=== PATIENT | female | born 1955 | race Hispanic/Latino ===

== ENCOUNTER 2017-12-15 16:56 | Emergency (ER) | payer OTHER, SELFPAY ==
--- OUTSIDE RECORDS SUMMARY | 2017-12-15 16:57 | XMS REPORT ---
:1955 Author Organization [employer] Care Team Providers Name Role Phone Tonio Miller Provider Role Unavailable Allergies No Known Allergies Problems Problem Type Condition Code Onset Dates Condition Status Assessment Stress disorder, acute F43.0 Active Problem Insomnia G47.00 Active Assessment Allergic reaction, initial T78.40XA Active encounter Problem Fatty liver K76.0 Active Problem Postsurgical menopause N95.8 Active Problem GERD (gastroesophageal reflux K21.9 Active disease) Problem Hypertension I10 Active Problem Dizziness R42 Active Problem Simple renal cyst N28.1 Active Problem Vitamin B12 deficiency anemia D51.9 Active Problem Hyperlipidemia, mixed E78.2 Active Problem Hematuria, unspecified R31.9 Active Problem Stress disorder, acute F43.0 Active Problem History of transient ischemic Z86.73 Active attack Problem History of cerebrovascular Z86.73 Active accident Problem Adrenal hypofunction E27.49 Active Problem Degeneration, intervertebral disc, 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 97177961601 25 MG Orally Active 1 capsule HCl Once a day Ultram [facility] 33495281218 50 MG Orally Active 1 tablet every 6 hrs as needed Lipitor ND 05909905045 40 MG Orally Active 1 tablet Once a day Nystatin [facility] [address]-68 439484 U/ML Active not Mouth/Throat defined Nasonex ND 24720631479 50 MCG/ACT Active 2 sprays Nasally Once a in each day nostril Nexium ND 82809928725 40 MG Active TAKE ONE CAPSULE BY MOUTH EVERY DAY Venlafaxine HCl ND 55485427031 75 MG Active TAKE ONE ER CAPSULE BY MOUTH EVERY DAY Loratadine [facility] 12006196187 10 MG Orally Active 1 tablet Once a day Trelegy Ellipta [facility] 35115466779 100-62.5-25 Active 1 puff MCG/INH Inhalation Once a day Lorazepam [facility] 60751619359 0.5 MG Orally Active 1 tablet every 6 hrs as needed Vitamin B12 [facility] 84963299558 1000 MCG Orally Active 1 tablet Once a day Clopidogrel [facility] 00260287801 75 MG Orally Active 1 tablet Bisulfate Once a day Atenolol [facility] 00005331088 100 MG Active TAKE 1 TABLET BY MOUTH EVERY DAY Aspirin [facility] 11668046572 81 MG Active TAKE 1 TABLET BY MOUTH EVERY DAY ProAir HFA [facility] 80463013067 108 (90 Base) Active 2 puffs MCG/ACT as needed Inhalation every [address] [facility] 12902069655 100 MG Orally Active 1 capsule Three times a day Furosemide [facility] 24237032455 20 MG Orally Active 1 tablet Once a day Synthroid [facility] 59887763544 50 MCG Orally Active 1 tablet Once a day on an empty stomach in the morning Promethazine HCl [facility] 28657285316 25 MG/ML Active 1 ml as Injection every needed 6 hrs Results No Known Results Summary Purpose e[employer]Works Submission
--- NOTE | 2017-12-15 17:49 | RAD REPORT ---
EXAM DESCRIPTION: RAD - Chest Single View - 12/15/2017 5:42 pm CLINICAL HISTORY: CHEST PAIN Chest pain. COMPARISON: Chest Single View dated 06/17/2017; Chest Pa And Lat (2 Views) dated 05/26/2017; Chest Si ngle View dated 04/14/2017; Chest Pa And Lat (2 Views) dated 12/25/2016 FINDINGS: Portable technique limits examination quality. The lungs are grossly clear. The heart is mildly enlarged in size with postsurgical changes noted inv olving the mediastinum. No displaced fractures.Postsurgical left chest wall findings are stable. IMPRESSION: No acute intrathoracic process suspected.
--- NOTE | 2017-12-15 18:27 | RAD REPORT ---
EXAM DESCRIPTION: CT - Head Brain Wo Cont - 12/15/2017 6:14 pm CLINICAL HISTORY: WEAKNESS Drowsiness COMPARISON: Head Brain Wo Cont dated 09/09/2016; Head Brain Wo Cont dated 06/12/2016Head Brain Wo Con t dated 09/09/2016; Head Brain Wo Cont dated 06/12/2016; HEAD BRAIN W O CONTRAST dated 08/17/2015 TECHNIQUE: All CT scans are performed using dose optimization technique as appropriate and may inclu de automated exposure control or mA/KV adjustment according to patient size. FINDINGS: No intracranial hemorrhage, hydrocephalus or extra-axial fluid collection.No areas of brai n edema or evidence of midline shift. The paranasal sinuses and mastoids are clear. The calvarium is intact. IMPRESSION: No acute intracranial abnormality.
[2017-12-15] MEDS ORDERED: ONDANSETRON 4 MG (ODT) TAB ONE (18:54)
[2017-12-15] MEDS ORDERED: FENTANYL CITR 100 MCG/2 ML ONE (19:49)
[2017-12-15] MEDS ORDERED: ONDANSETRON 4 MG/2 ML VIAL ONE (19:49)
[2017-12-15 19:58] LABS: Absolute Lymphocytes (CBC) 3.1 K/uL (0.7-4.9); Absolute Monocytes 0.3 K/uL (0.1-1.3); Absolute Neutrophil 3.3 K/uL (1.8-8.0); Basophils % 0.4 % (0-1.3); Eosinophils % 0.9 % (0-4.4); Lymphocytes % 45.9 % (15.3-44.8); MCH 32.1 pg (27.0-35.0); MCV 95.1 fL (80-100); Monocytes % 4.7 % (3.3-12.3); RBC Red Blood Cell Count 4.52 M/uL (3.86-4.86)
[2017-12-15 20:05] LABS: Protime INR 0.98
[2017-12-15 20:24] LABS: Albumin 3.8 g/dL (3.4-5.0); Bilirubin Direct 0.1 mg/dL (0-0.2); Bilirubin Total 0.6 mg/dL (0.2-1.0); Magnesium 2.3 mg/dL (1.8-2.4); Potassium 4.1 mmol/L (3.5-5.1); Protein, Total 7.8 g/dL (6.4-8.2)
--- NOTE | 2017-12-15 20:32 | EDPHYS ---
Physician Documentation [facility] Name: Toshia Barone Age: 62 yrs Sex: Female : 1955 Arrival Date: 12/15/2017 Time: 16:58 Bed 16 Private MD: Tonio Miller ED Physician Gulshan Grissom HPI: 12/15 20:29 This 62 yrs old Female presents to ER via Ambulatory with complaints of Chest gs Pain > 30 y/o. 20:29 The patient or guardian reports chest pain that is located primarily in the anterior gs chest wall. Onset: 1 week(s) ago. The pain does not radiate. Associated signs and symptoms: Pertinent negatives: shortness of breath. The chest pain is described as dull, a heaviness. Duration: The patient or guardian reports multiple episodes, that wax and wane, with no pattern, the episodes last approximately 1 minute(s), or less. Severity of pain: At its worst the pain was moderate in the emergency department the pain has resolved. The patient has experienced similar episodes in the past, several times. Historical: - Allergies: 17:04 methylphenidate HCl; aj 17:04 PENICILLINS; aj 17:04 Reglan; aj 17:04 Ritalin; aj - Home Meds: 17:04 aspirin 81 mg Oral TbEC 1 tab once daily [Active]; atenolol 100 mg Oral tab 1 tab once aj daily [Active]; atorvastatin 40 mg Oral tab 1 tab nightly [Active]; Eliquis 2.5 mg Oral tab 1 tab 2 times per day [Active]; gabapentin 300 mg Oral cap 1 cap 3 times per day [Active]; isosorbide mononitrate 30 mg Oral Tb24 1 tab once daily [Active]; levothyroxine 50 mcg tab 1 tab once daily [Active]; Nexium 40 mg Oral cpDR 1 cap once daily [Active]; ProAir HFA 90 mcg/actuation inhalation HFAA 1 puff every 4 hours [Active]; spironolactone 25 mg Oral tab 1 tab 2 times per day [Active]; promethazine 12.5 mg Oral tab 1 tab as needed [Active]; Stool Softener 100 mg Oral cap 1 cap once daily [Active]; tramadol 50 mg Oral tab 2 tabs every 6 hours [Active]; Vitamin D [place] 33264 unit Q WEEK [Active]; - PMHx: 17:04 B12 deficiency; CHF; COPD; CVA; DVT; fatty liver; GERD; Hyperlipidemia; Hypertension; aj Hypothyroidism; Kidney stones; Myocardial infarction; Pancreatitis; TIA; - PSHx: 17:04 Hysterectomy; Lobectomy; Heart stents; Cholecystectomy; ; right leg vericose aj vein removal; - Immunization history:: Adult Immunizations up to date. - Social history:: Smoking status: Patient/guardian denies using tobacco. - Ebola Screening: : Patient negative for fever greater than or equal to 101.5 degrees Fahrenheit, and additional compatible Ebola Virus Disease symptoms Patient denies exposure to infectious person Patient denies travel to an Ebola-affected area in the 21 days before illness onset No symptoms or risks identified at this time. ROS: 20:29 Neuro: Positive for weakness, upper extremity says intermittent no pattern has history gs of stroke. 20:29 All other systems are negative. Exam: 20:29 Head/Face: Normocephalic, atraumatic. Eyes: Pupils equal round and reactive to light, gs extra-ocular motions intact. Lids and lashes normal. Conjunctiva and sclera are non-icteric and not injected. Cornea within normal limits. Periorbital areas with no swelling, redness, or edema. ENT: Nares patent. No nasal discharge, no septal abnormalities noted. Tympanic membranes are normal and external auditory canals are clear. Oropharynx with no redness, swelling, or masses, exudates, or evidence of obstruction, uvula midline. Mucous membranes moist. Neck: Trachea midline, no thyromegaly or masses palpated, and no cervical lymphadenopathy. Supple, full range of motion without nuchal rigidity, or vertebral point tenderness. No Meningismus. Chest/axilla: Normal chest wall appearance and motion. Nontender with no deformity. No lesions are appreciated. Cardiovascular: Regular rate and rhythm with a normal S1 and S2. No gallops, murmurs, or rubs. Normal PMI, no JVD. No pulse deficits. Respiratory: Lungs have equal breath sounds bilaterally, clear to auscultation and percussion. No rales, rhonchi or wheezes noted. No increased work of breathing, no retractions or nasal flaring. Abdomen/GI: Soft, non-tender, with normal bowel sounds. No distension or tympany. No guarding or rebound. No evidence of tenderness throughout. Back: No spinal tenderness. No costovertebral tenderness. Full range of motion. Skin: Warm, dry with normal turgor. Normal color with no rashes, no lesions, and no evidence of cellulitis. MS/ Extremity: Pulses equal, no cyanosis. Neurovascular intact. Full, normal range of motion. Neuro: Awake and alert, GCS 15, oriented to person, place, time, and situation. Cranial nerves II-XII grossly intact. Motor strength 5/5 in all extremities. Sensory grossly intact. Cerebellar exam normal. Normal gait. 20:29 Constitutional: The patient appears alert, awake. 20:29 ECG was reviewed by the Attending Physician. Vital Signs: 17:04 BP 178 / 80; Pulse 73; Resp 18; Temp 97.6; Pulse Ox 98% on R/A; Weight 72.57 kg; Height aj 5 ft. 5 in. (165.10 cm); 18:30 BP 139 / 83; Pulse 63; Resp 18; Pulse Ox 98% on R/A; ph 20:45 BP 117 / 84; Pulse 68; Resp 16; Pulse Ox 99% on R/A; Pain 0/10; ao 17:04 Body Mass Index 26.63 (72.57 kg, 165.10 cm) aj NIH Stroke Scale Scores: 20:29 NIHSS Score: 0 gs MDM: 17:48 Patient medically screened. 20:29 Differential diagnosis: acute myocardial infarction, coronary artery disease chest wall gs pain. Differential diagnosis: cva tia. Data reviewed: vital signs, nurses notes. 20:32 Counseling: I had a detailed discussion with the patient and/or guardian regarding: the historical points, exam findings, and any diagnostic results supporting the discharge/admit diagnosis. Response to treatment: the patient's symptoms have resolved after treatment, the patient's pain is gone. 12/15 17:24 Order name: Basic Metabolic Panel; Complete Time: 20:28 12/15 17:24 Order name: CBC with Diff; Complete Time: 20: 12/15 17:24 Order name: LFT's; Complete Time: 20:28 12/15 17:24 Order name: Magnesium; Complete Time: 20: 12/15 17:24 Order name: NT PRO-BNP; Complete Time: 20: 12/15 17:24 Order name: PT-INR; Complete Time: 20:13 12/15 17:24 Order name: Troponin (emerg Dept Use Only); Complete Time: 20:28 12/15 17:24 Order name: XRAY Chest (1 view); Complete Time: 18:33 gs 12/15 17:24 Order name: EKG; Complete Time: 17:24 12/15 17:24 Order name: Cardiac monitoring; Complete Time: 18:57 12/15 17:41 Order name: CT Head Brain wo Cont; Complete Time: 18:33 12/15 17:24 Order name: EKG - Nurse/Tech; Complete Time: 18:57 12/15 17:24 Order name: IV Saline Lock; Complete Time: 18:58 12/15 17:24 Order name: Labs collected and sent; Complete Time: 18:59 12/15 17:24 Order name: O2 Per Protocol; Complete Time: 18:59 12/15 17:24 Order name: O2 Sat Monitoring; Complete Time: 20:39 gs EC:29 Rate is 62 beats/min. Rhythm is regular. MT interval is normal. QRS interval is normal. gs T waves are Flattened. No ST changes noted. Clinical impression: Abnormal EKG without significant change. Interpreted by me. Administered Medications: 18:57 Drug: Zofran 4 mg Route: PO; ph 20:49 Follow up: Response: No adverse reaction ao 19:53 Drug: Zofran 4 mg Route: IVP; Site: right antecubital; ao 20:49 Follow up: Response: No adverse reaction ao 19:53 Drug: fentaNYL (PF) 25 mcg Route: IVP; Site: right antecubital; ao 20:48 Follow up: Response: No adverse reaction ao Disposition: 12/15/17 20:32 Discharged to Home. Impression: Chest pain, unspecified. - Condition is Stable. - Discharge Instructions: Nonspecific Chest Pain. - Medication Reconciliation Form, Thank You Letter, Antibiotic Education, Prescription Opioid Use form. - Follow up: Private Physician; When: 2 - 3 days; Reason: Re-evaluation by your physician. NIH Stroke Scale - NIH Stroke Score Date: 12/15/2017 Time: 20:29 Total Score = 0 1a. Level of Consciousness (LOC) - 0(Alert) 1b. Level of Consciousness (LOC) (Year \T\ Age) - 0(Both) 1c. LOC Commands (Open \T\ Closes Eyes/Receiving Worker) - 0(Both) 2. Best Gaze (Lateral Gaze Paresis) - 0(Normal) 3. Visual Field Loss - 0(No visual loss) 4. Facial Palsy - 0(Normal) 5a. Left Arm: Motor (10-second hold) - 0(No drift) 5b. Right Arm: Motor (10-second hold) - 0(No drift) 6a. Left Leg: Motor (5-second hold - always test supine) - 0(No drift) 6b. Right Leg: Motor (5-second hold - always test supine) - 0(No drift) 7. Limb Ataxia (finger/nose \T\ heel/glass - test with eyes open) - 0(Absent) 8. Sensory Loss (pinprick arms/legs/face) - 0(Normal) 9. Best Language: Aphasia (description/naming/reading) - 0(No aphasia) 10. Dysarthria (speech clarity - read or repeat words) - 0(Normal) 11. Extinction and Inattention (visual/tactile/auditory/spatial/personal) - 0(No abnormality) Initials: Signatures: Dispatcher [employer] EDAllyson Romo RN RN aj Hall, Patricia RN Cheng Abrams ph, RN RN ao Starr, Gregory, MD MD Corrections: (The following items were deleted from the chart) 20:40 17:24 Urine Dipstick-Ancillary ordered. ao 20:54 20:32 12/15/2017 20:32 Discharged to Home. Impression: Chest pain, unspecified. ao Condition is Stable. Forms are Medication Reconciliation Form, Thank You Letter, Antibiotic Education, Prescription Opioid Use. Follow up: Private Physician; When: 2 - 3 days; Reason: Re-evaluation by your physician.
--- NOTE | 2017-12-15 20:32 | ER ---
Nurse's Notes [facility] Name: Toshia Barnoe Age: 62 yrs Sex: Female : 1955 Arrival Date: 12/15/2017 Time: 16:58 Bed 16 Private MD: Tonio Miller Diagnosis: Chest pain, unspecified Presentation: 12/15 17:02 Presenting complaint: Patient states: Sternal chest pain with heaviness to left arm. aj Reports nausea. Transition of care: patient was not received from another setting of care. Onset of symptoms was December 12, 2017. Risk Assessment: Do you want to hurt yourself or someone else? Patient reports no desire to harm self or others. Initial Sepsis Screen: Does the patient meet any 2 criteria? No. Patient's initial sepsis screen is negative. Does the patient have a suspected source of infection? No. Patient's initial sepsis screen is negative. Care prior to arrival: None. 17:02 Method Of Arrival: Ambulatory aj 17:02 Acuity: SHARON 3 aj Triage Assessment: 17:04 General: Appears in no apparent distress. comfortable, Behavior is calm, cooperative, aj appropriate for age. Pain: Complains of pain in chest. Neuro: Level of Consciousness is awake, alert, obeys commands, Oriented to person, place, time, situation, Appropriate for age. Cardiovascular: Reports chest pain. Cardiovascular: Reports Capillary refill < 3 seconds in bilateral fingers Patient's skin is warm and dry. Respiratory: Airway is patent Respiratory effort is even, unlabored, Respiratory pattern is regular, symmetrical. GI: Reports nausea. Derm: Skin is intact, is healthy with good turgor, Skin is pink, warm \T\ dry. normal. Historical: - Allergies: 17:04 methylphenidate HCl; aj 17:04 PENICILLINS; aj 17:04 Reglan; aj 17:04 Ritalin; aj - Home Meds: 17:04 aspirin 81 mg Oral TbEC 1 tab once daily [Active]; atenolol 100 mg Oral tab 1 tab once aj daily [Active]; atorvastatin 40 mg Oral tab 1 tab nightly [Active]; Eliquis 2.5 mg Oral tab 1 tab 2 times per day [Active]; gabapentin 300 mg Oral cap 1 cap 3 times per day [Active]; isosorbide mononitrate 30 mg Oral Tb24 1 tab once daily [Active]; levothyroxine 50 mcg tab 1 tab once daily [Active]; Nexium 40 mg Oral cpDR 1 cap once daily [Active]; ProAir HFA 90 mcg/actuation inhalation HFAA 1 puff every 4 hours [Active]; spironolactone 25 mg Oral tab 1 tab 2 times per day [Active]; promethazine 12.5 mg Oral tab 1 tab as needed [Active]; Stool Softener 100 mg Oral cap 1 cap once daily [Active]; tramadol 50 mg Oral tab 2 tabs every 6 hours [Active]; Vitamin D Oral 20629 unit Q WEEK [Active]; - PMHx: 17:04 B12 deficiency; CHF; COPD; CVA; DVT; fatty liver; GERD; Hyperlipidemia; Hypertension; aj Hypothyroidism; Kidney stones; Myocardial infarction; Pancreatitis; TIA; - PSHx: 17:04 Hysterectomy; Lobectomy; Heart stents; Cholecystectomy; ; right leg vericose aj vein removal; - Immunization history:: Adult Immunizations up to date. - Social history:: Smoking status: Patient/guardian denies using tobacco. - Ebola Screening: : Patient negative for fever greater than or equal to 101.5 degrees Fahrenheit, and additional compatible Ebola Virus Disease symptoms Patient denies exposure to infectious person Patient denies travel to an Ebola-affected area in the 21 days before illness onset No symptoms or risks identified at this time. Screenin:17 Abuse screen: Denies threats or abuse. Denies injuries from another. Nutritional ph screening: No deficits noted. Tuberculosis screening: No symptoms or risk factors identified. Fall Risk None identified. Assessment: 17:15 General: Appears in no apparent distress. comfortable, well groomed, Behavior is calm, ph cooperative, appropriate for age. Pain: Complains of pain in chest Pain radiates to left arm Quality of pain is described as heavy, pressure, Pain began 4 days ago. Neuro: Level of Consciousness is awake, alert, obeys commands, Oriented to person, place, time, situation, Marketing Production Coordinator are equal bilaterally Speech is normal, Facial symmetry appears normal, Facial symmetry: tongue is midline, Reports weakness in left arm and left leg since 4 days ago Denies blurred vision dizziness, difficulty swallowing, paresthesias headache. Cardiovascular: Reports chest pain, diaphoresis, fatigue, nausea, shortness of breath, Capillary refill < 3 seconds Patient's skin is warm and dry. Chest pain quality is heaviness, pressure, is located in substernal area radiates to left arm(s). Respiratory: Airway is patent. GI: Reports nausea, Patient currently denies abdominal pain, diarrhea, vomiting. Derm: Skin is intact, is healthy with good turgor, Skin is normal. Musculoskeletal: Circulation, motion, and sensation intact. Range of motion: intact in all extremities. 18:00 Reassessment: Unable to gain IV access, lab notified to draw blood. ph 19:00 Reassessment: Patient appears in no apparent distress at this time. Patient and/or ph family updated on plan of care and expected duration. Pain level reassessed. Patient is alert, oriented x 3, equal unlabored respirations, skin warm/dry/pink. Lab unable to obtain blood, RT at bedside for arterial draw assisted by RN, small amount of blood obtained and sent to lab. 19:42 General: Appears in no apparent distress. comfortable, well groomed. Pain: Complains of ao pain in chest Pain radiates to left arm Quality of pain is described as heavy, pressure. Neuro: Level of Consciousness is awake, alert, obeys commands, Oriented to person, place, time, situation, Marketing Production Coordinator are equal bilaterally Speech is normal, Facial symmetry appears normal, Facial symmetry: tongue is midline. Cardiovascular: Reports chest pain, diaphoresis, fatigue, nausea, shortness of breath, Capillary refill < 3 seconds Patient's skin is warm and dry. Respiratory: Airway is patent. GI: Abdomen is obese. : No signs and/or symptoms were reported regarding the genitourinary system. EENT: No signs and/or symptoms were reported regarding the EENT system. Derm: Skin is intact, is healthy with good turgor, Skin is normal. 20:50 Reassessment: Patient appears in no apparent distress at this time. Patient and/or ao family updated on plan of care and expected duration. Pain level reassessed. Patient is alert, oriented x 3, equal unlabored respirations, skin warm/dry/pink. Discharge instructions given by me and Dr Grissom. Patient agree with the POC and to follow up with PCP. Patient has no questions at this time. Vital Signs: 17:04 BP 178 / 80; Pulse 73; Resp 18; Temp 97.6; Pulse Ox 98% on R/A; Weight 72.57 kg; Height aj 5 ft. 5 in. (165.10 cm); 18:30 BP 139 / 83; Pulse 63; Resp 18; Pulse Ox 98% on R/A; ph 20:45 BP 117 / 84; Pulse 68; Resp 16; Pulse Ox 99% on R/A; Pain 0/10; ao 17:04 Body Mass Index 26.63 (72.57 kg, 165.10 cm) NIH Stroke Scale Scores: 20:29 NIHSS Score: 0 ED Course: 16:58 Patient arrived in ED. sb2 16:59 Tonio Miller, DO is Private Physician. sb2 17:02 Triage completed. aj 17:04 Arm band placed on right wrist. Patient placed in an exam room. aj 17:07 Viviana Sweeney, RN is Primary Nurse. ph 17:18 Gulshan Grissom MD is Attending Physician. gs 17:41 X-ray completed. Portable x-ray completed in exam room. Patient tolerated procedure kp1 well. 17:42 XRAY Chest (1 view) In Process Unspecified. EDMS 17:45 EKG done, by mechanical service technician. reviewed by Gulshan Grissom MD. sm3 18:[address] vm2 18:09 Missed attempt(s): 22 gauge in left in right antecubital area. mh5 18:10 Patient has correct armband on for positive identification. Placed in gown. Bed in low mh5 position. Call light in reach. Side rails up X2. Warm blanket given. forest aide on. Pulse ox on. NIBP on. 18:14 CT completed. Patient tolerated procedure well. Patient moved back from CT. nj 18:14 CT Head Brain wo Cont In Process Unspecified. EDMS 18:45 Missed attempt(s): 22 gauge in right wrist. antecubital area. Bleeding controlled, band ph aid applied, catheter tip intact. 19:17 Patient maintains SpO2 saturation greater than 95% on room air. ph 19:44 Inserted saline lock: 20 gauge in right antecubital area, using aseptic technique. ao ,using aseptic technique. Guided ultrasound Blood collected. 20:49 No provider procedures requiring assistance completed. IV discontinued, intact, ao bleeding controlled, No redness/swelling at site. Pressure dressing applied. Administered Medications: 18:57 Drug: Zofran 4 mg Route: PO; ph 20:49 Follow up: Response: No adverse reaction ao 19:53 Drug: Zofran 4 mg Route: IVP; Site: right antecubital; ao 20:49 Follow up: Response: No adverse reaction ao 19:53 Drug: fentaNYL (PF) 25 mcg Route: IVP; Site: right antecubital; ao 20:48 Follow up: Response: No adverse reaction ao Outcome: 20:32 Discharge ordered by MD. gs 20:50 Discharged to home ambulatory. ao 20:50 Condition: stable 20:50 Discharge instructions given to patient, Instructed on discharge instructions, follow up and referral plans. Demonstrated understanding of instructions, follow-up care, medications. 20:54 Patient left the ED. ao NIH Stroke Scale - NIH Stroke Score Date: 12/15/2017 Time: 20:29 Total Score = 0 1a. Level of Consciousness (LOC) - 0(Alert) 1b. Level of Consciousness (LOC) (Year \T\ Age) - 0(Both) 1c. LOC Commands (Open \T\ Closes Eyes/Shipmaster) - 0(Both) 2. Best Gaze (Lateral Gaze Paresis) - 0(Normal) 3. Visual Field Loss - 0(No visual loss) 4. Facial Palsy - 0(Normal) 5a. Left Arm: Motor (10-second hold) - 0(No drift) 5b. Right Arm: Motor (10-second hold) - 0(No drift) 6a. Left Leg: Motor (5-second hold - always test supine) - 0(No drift) 6b. Right Leg: Motor (5-second hold - always test supine) - 0(No drift) 7. Limb Ataxia (finger/nose \T\ heel/glass - test with eyes open) - 0(Absent) 8. Sensory Loss (pinprick arms/legs/face) - 0(Normal) 9. Best Language: Aphasia (description/naming/reading) - 0(No aphasia) 10. Dysarthria (speech clarity - read or repeat words) - 0(Normal) 11. Extinction and Inattention (visual/tactile/auditory/spatial/personal) - 0(No abnormality) Initials: Signatures: Dispatcher [employer] EDAllyson Romo RN RN aj Hall, Patricia, RN RN ph Ortiz, Alex, RN RN ao Jordan, Nathan nj Martinez, Maria mh5 Kelle Hastings vm2 Ya Ledbetter kp1 Gulshan Grissom MD MD Yulia Yanes sb2 Zena Beltrán 3 Corrections: (The following items were deleted from the chart) 19:18 18:45 Missed attempt(s): 22 gauge in left wrist. antecubital area. ph ph
--- NOTE | 2017-12-15 20:52 | EKG ---
Test Date: 2017-12-15 Test Time: 17:40:02 Photographic Equipment Assembler: LARRY MEASUREMENT RESULTS: Intervals: Rate: 62 WI: 146 QRSD: 76 QT: 416 QTc: 422 Carpenter: P: -1 WI: 146 QRS: 2 T: 48 INTERPRETIVE STATEMENTS: Normal sinus rhythm Normal ECG Compared to ECG 06/17/2017 13:53:18 Left ventricular hypertrophy no longer present T-wave abnormality no longer present Electronically Signed On 12-15-17 20:51:40 CDT by Ivan Hernandez
[2017-12-15 20:58] VITALS: TEMP 97.6
[2017-12-15 21:01] VITALS: BP 117/84; O2SAT 99
== END 2017-12-15 20:54 | disposition home or self-care (01) ==
LOC: ER 16:56
DX: R07.9 Chest pain, unspecified (principal); I10 Essential (primary) hypertension; E78.5 Hyperlipidemia, unspecified; J44.9 Chronic obstructive pulmonary disease, unspecified; I25.2 Old myocardial infarction; I50.9 Heart failure, unspecified; Z79.02 Long term (current) use of antithrombotics/antiplatelets; Z79.82 Long term (current) use of aspirin; Z88.0 Allergy status to penicillin; Z88.8 Allergy status to other drugs, medicaments and biological substances; Z95.818 Presence of other cardiac implants and grafts
CPT/HCPCS: 36415; 70450; 71045; 80048; 80076; 82962; 83735; 83880; 84484; 85025; 85610; 93005; 96374; 96375; 99285; J2405; J3010

== ENCOUNTER 2018-04-30 11:35 | Observation (INO) | payer OTHER ==
--- OUTSIDE RECORDS SUMMARY | 2018-04-30 11:37 | XMS REPORT ---
:1955 Author Organization e[employer] Care Team Providers Name Role Phone Tonio Miller Provider Role Unavailable Allergies No Known Allergies Problems Problem Type Condition Code Onset Dates Condition Status Problem Hypertension I10 Active Problem Hyperlipidemia, mixed E78.2 Active Problem History of transient ischemic attack Z86.73 Active Problem Varicose veins I86.8 Active Problem Postsurgical menopause N95.8 Active Problem History of cerebrovascular accident Z86.73 Active Problem Adrenal hypofunction E27.49 Active Problem Hypothyroidism, unspecified type E03.9 Active Problem Stress disorder, acute F43.0 Active Problem Kidney stone N20.0 Active Problem Stented coronary artery Z95.5 Active Problem Chronic obstructive pulmonary J44.9 Active disease, unspecified COPD type Problem Degenerative joint disease M19.90 Active Problem Degeneration, intervertebral disc, 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
--- OUTSIDE RECORDS SUMMARY | 2018-04-30 11:37 | XMS REPORT ---
:1955 Author Organization [employer] Care Team Providers Name Role Phone Tonio Miller Provider Role Unavailable Allergies No Known Allergies Problems Problem Type Condition Code Onset Dates Condition Status Assessment Stented coronary artery Z95.5 Active Assessment GERD (gastroesophageal reflux K21.9 Active disease) Assessment Hypertension I10 Active Assessment Atherosclerosis of coronary artery I25.10 Active of [place] heart Assessment Chronic obstructive pulmonary J44.9 Active disease, unspecified COPD type Assessment Hyperlipidemia, mixed E78.2 Active Assessment Depression with anxiety F41.8 Active Assessment Hypothyroidism, unspecified type E03.9 Active Problem Hypertension I10 Active Problem Hyperlipidemia, mixed [...] Atherosclerosis of coronary artery I25.10 Active of [place] heart Problem Simple renal cyst N28.1 Active Problem Vitamin B12 deficiency anemia D51.9 Active Problem Chronic pancreatitis K86.1 Active Problem Peripheral neuropathy G62.9 Active Problem Obstructive sleep apnea G47.33 Active Problem Depression with anxiety F41.8 Active Problem GERD (gastroesophageal reflux K21.9 Active disease) Problem Dizziness R42 Active Problem Insomnia G47.00 Active Problem Fatty liver K76.0 Active Medications Medication Code Code Instructions Start End Status Dosage System Date Date Ultram [facility] 69368157724 50 MG Orally Active 1 tablet every 6 hrs as needed Synthroid [facility] 61064732338 50 MCG Orally Active 1 tablet Once a day on an empty stomach in the morning Nasonex [facility] 32921678169 50 MCG/ACT Active 2 sprays Nasally Once a in each day nostril Nystatin [facility] [address]-68 445592 U/ML Inactive not Mouth/Throat defined Gabapentin [facility] 61996966503 100 MG Orally Inactive 1 capsule Three times a day Nortriptyline [facility] 10533290067 25 MG Orally Inactive 1 capsule HCl Once a day Lorazepam [facility] 30280467767 0.5 MG Orally Inactive 1 tablet every 6 hrs as needed Promethazine HCl [facility] 65257093792 25 MG/ML Active 1 ml as Injection every needed 6 hrs Aspirin [facility] 59410456661 81 MG Active TAKE 1 TABLET BY MOUTH EVERY DAY Venlafaxine HCl [facility] 11490684475 75 MG Active TAKE ONE ER CAPSULE BY MOUTH EVERY DAY Clopidogrel [facility] 79196430370 75 MG Orally Active 1 tablet Bisulfate Once a day Vitamin B12 [facility] 60443517273 1000 MCG Orally Active 1 tablet Once a day Furosemide [facility] 80502353562 20 MG Orally Active 1 tablet Once a day Atenolol [facility] 94450391455 100 MG PO Once Active TAKE 1 daily TABLET BY MOUTH EVERY DAY Trelegy Ellipta [facility] 11193013544 100-62.5-25 Active 1 puff MCG/INH Inhalation Once a day Nexium [facility] 59359122492 40 MG Active TAKE ONE CAPSULE BY MOUTH EVERY DAY Loratadine [facility] 13365890490 10 MG Orally Active 1 tablet Once a day Lipitor [facility] 09004939602 40 MG Orally Active 1 tablet Once a day ProAir HFA [facility] 42711300336 108 (90 Base) Active 2 puffs MCG/ACT as needed Inhalation every 6 hrs Results No Known Results Summary Purpose eClinicalWorks Submission
--- OUTSIDE RECORDS SUMMARY | 2018-04-30 11:37 | XMS REPORT ---
[...] Atherosclerosis of coronary artery I25.10 Active of [place] heart Problem Stented coronary artery Z95.5 Active Problem Kidney stone N20.0 Active Problem Varicose veins I86.8 Active Problem Degenerative joint disease M19.90 Active Problem Chronic pancreatitis K86.1 Active Problem Peripheral neuropathy G62.9 Active Problem Obstructive sleep apnea G47.33 Active Problem Depression with anxiety F41.8 Active Medications Medication Code Code Instructions Start End Status Dosage System Date Date Nortriptyline [facility] 88689946561 25 MG Orally Active 1 capsule HCl Once a day Ultram [facility] 53764084574 50 MG Orally Active 1 tablet every 6 hrs as needed Lipitor ND 65906517534 40 MG Orally Active 1 tablet Once a day Nystatin [facility] [address]-79 572691 U/ML Active not Mouth/Throat defined Nasonex ND 49857929192 50 MCG/ACT Active 2 sprays Nasally Once a in each day nostril Nexium ND 56141138342 40 MG Active TAKE ONE CAPSULE BY MOUTH EVERY DAY Venlafaxine HCl ND 05428822619 75 MG Active TAKE ONE ER CAPSULE BY MOUTH EVERY DAY Loratadine [facility] 75959242247 10 MG Orally Active 1 tablet Once a day Trelegy Ellipta [facility] 69732777522 100-62.5-25 Active 1 puff MCG/INH Inhalation Once a day Lorazepam [facility] 41018044254 0.5 MG Orally Active 1 tablet every 6 hrs as needed Vitamin B12 [facility] 51574521301 1000 MCG Orally Active 1 tablet Once a day Clopidogrel [facility] 14284025984 75 MG Orally Active 1 tablet Bisulfate Once a day Atenolol [facility] 80428088323 100 MG Active TAKE 1 TABLET BY MOUTH EVERY DAY Aspirin [facility] 78175218724 81 MG Active TAKE 1 TABLET BY MOUTH EVERY DAY ProAir HFA [facility] 08703963197 108 (90 Base) Active 2 puffs MCG/ACT as needed Inhalation every 6 hrs Gabapentin [facility] 82766444999 100 MG Orally Active 1 capsule Three times a day Furosemide [facility] 64863126570 20 MG Orally Active 1 tablet Once a day Synthroid [facility] 23868627001 50 MCG Orally Active 1 tablet Once a day on an empty stomach in the morning Promethazine HCl [facility] 62226667961 25 MG/ML Active 1 ml as Injection every needed 6 hrs Results No Known Results Summary Purpose eClinicalWorks Submission
--- OUTSIDE RECORDS SUMMARY | 2018-04-30 11:38 | XMS REPORT ---
:1955 Author Organization e[employer]Works Care Team Providers Name Role Phone Sarahy Millerh Provider Role Unavailable Allergies, Adverse Reactions, Alerts Substance Reaction Event Type Metoclopramide HCl Info Not Available Drug Allergy Amoxicillin Info Not Available Drug Allergy Problems Problem Type Condition Code Onset Dates Condition Status Assessment Atherosclerosis of coronary artery I25.10 Active of [place] heart Assessment Stented coronary artery Z95.5 Active Assessment Chronic obstructive pulmonary J44.9 Active disease, unspecified COPD type Assessment Hypertension I10 Active Assessment Hyperlipidemia, mixed E78.2 Active Assessment Depression with anxiety F41.8 Active Assessment Allergic reaction, initial T78.40XA Active encounter Assessment Hypothyroidism, unspecified type E03.9 Active Problem Hypertension I10 Active Problem Hyperlipidemia, mixed E78.2 Active Problem History of transient ischemic Z86.73 Active attack Problem Varicose veins I86.8 Active Problem Postsurgical menopause N95.8 Active Problem History of cerebrovascular Z86.73 Active accident Problem Adrenal hypofunction E27.49 Active Problem Hypothyroidism, unspecified type E03.9 Active Problem Stress disorder, acute F43.0 Active Problem Kidney stone N20.0 Active Problem Stented coronary artery Z95.5 Active Problem Chronic obstructive pulmonary J44.9 Active disease, unspecified COPD type Problem Degenerative joint disease M19.90 Active Problem Degeneration, intervertebral disc, 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 Problem Atherosclerosis of coronary artery I25.10 Active of [place] heart Problem Simple renal cyst N28.1 Active Problem Vitamin B12 deficiency anemia D51.9 Active Problem Chronic pancreatitis K86.1 Active Assessment GERD (gastroesophageal reflux K21.9 Active disease) Problem Peripheral neuropathy G62.9 Active Problem Obstructive sleep apnea G47.33 Active Problem Depression with anxiety F41.8 Active Problem GERD (gastroesophageal reflux K21.9 Active disease) Problem Dizziness R42 Active Problem Insomnia G47.00 Active Problem Fatty liver K76.0 Active Medications Medication Code Code Instructions Start End Status Dosage System Date Date Atenolol [facility] 08331385039 100 MG PO Once Active TAKE 1 daily TABLET BY MOUTH EVERY DAY Aspirin [facility] 81118136663 81 MG Active TAKE 1 TABLET BY MOUTH EVERY DAY Synthroid [facility] 76752940498 50 MCG Orally Active 1 tablet Once a day on an empty stomach in the morning Loratadine [facility] 71239464772 10 MG Orally Active 1 tablet Once a day ProAir HFA [facility] 14082338817 108 (90 Base) Active 2 puffs as MCG/ACT needed Inhalation every 6 hrs Lipitor [facility] 40289074425 40 MG Orally Active 1 tablet Once a day Nexium [facility] 68315685093 40 MG Active TAKE ONE CAPSULE BY MOUTH EVERY DAY Nexium [facility] 05103499784 40 MG Active TAKE ONE CAPSULE BY MOUTH EVERY DAY Aspirin [facility] 58489930879 81 MG Active TAKE 1 TABLET BY MOUTH EVERY DAY Vitamin B12 [facility] 79608656808 1000 MCG Orally Active 1 tablet Once a day Nasonex [facility] 36829336641 50 MCG/ACT Active 2 sprays Nasally Once a in each day nostril Clopidogrel [facility] 67356208175 75 MG Orally Active 1 tablet Bisulfate Once a day Trelegy Ellipta [facility] 27935750285 100-62.5-25 Active 1 puff MCG/INH Inhalation Once a day Promethazine HCl [facility] 13975221806 25 MG/ML Active 1 ml as Injection every needed 6 hrs Venlafaxine HCl [facility] 19522849549 75 MG Active TAKE ONE ER CAPSULE BY MOUTH EVERY DAY Ultram [facility] 02215001641 50 MG Orally Active 1 tablet every 6 hrs as needed Furosemide [facility] 03651312173 20 MG Orally Active 1 tablet Once a day Venlafaxine HCl [facility] 47565923158 75 MG Active TAKE ONE ER CAPSULE BY MOUTH EVERY DAY Results No Known Results Summary Purpose eClinicalWorks Submission
--- OUTSIDE RECORDS SUMMARY | 2018-04-30 11:38 | XMS REPORT ---
[...] Atherosclerosis of coronary artery I25.10 Active of [place] [facility] Assessment Chronic obstructive pulmonary J44.9 Active [...] Atherosclerosis of coronary artery I25.10 Active of [place] [facility] Problem Simple renal cyst N28.1 Active [...] Start End Status Dosage System Date Date Aspirin [facility] 23716572110 81 MG Active TAKE 1 TABLET BY MOUTH EVERY DAY Lipitor [facility] 49284674806 40 MG Orally Active 1 tablet Once a day ProAir HFA [facility] 64047092727 108 (90 Base) Active 2 puffs MCG/ACT as needed Inhalation every 6 hrs Aspirin [facility] 08450270445 81 MG Active TAKE 1 TABLET BY MOUTH EVERY DAY Venlafaxine HCl [facility] 24501944377 75 MG Active TAKE ONE ER CAPSULE BY MOUTH EVERY DAY Venlafaxine HCl [facility] 34215553924 75 MG Active TAKE ONE ER CAPSULE BY MOUTH EVERY DAY Loratadine [facility] 04167781712 10 MG Orally Active 1 tablet Once a day Atenolol [facility] 37334135783 100 MG PO Once Active TAKE 1 daily TABLET BY MOUTH EVERY DAY Nasonex [facility] 91389478664 50 MCG/ACT Active 2 sprays Nasally Once a in each day nostril Promethazine HCl [facility] 43958120754 25 MG/ML Active 1 ml as Injection every needed 6 hrs Ultram [facility] 61562604478 50 MG Orally Active 1 tablet every 6 hrs as needed Trelegy Ellipta [facility] 43295145697 100-62.5-25 Active 1 puff MCG/INH Inhalation Once a day Furosemide [facility] 38902130957 20 MG Orally Active 1 tablet Once a day Nexium [facility] 12884484776 40 MG Active TAKE ONE CAPSULE BY MOUTH EVERY DAY Nexium [facility] 73740382849 40 MG Active TAKE ONE CAPSULE BY MOUTH EVERY DAY Vitamin B12 [facility] 22238166066 1000 MCG Orally Active 1 tablet Once a day Nortriptyline [facility] 58066784176 25 MG Orally Inactive 1 capsule HCl Once a day Synthroid [facility] 38830628115 50 MCG Orally Active 1 tablet Once a day on an empty stomach in the morning Clopidogrel [facility] 53306149517 75 MG Orally Active 1 tablet Bisulfate Once a day Results No Known Results Summary Purpose eClinicalWorks Submission
--- OUTSIDE RECORDS SUMMARY | 2018-04-30 11:38 | XMS REPORT ---
[...] Atherosclerosis of coronary artery I25.10 Active of [place] [facility] Problem Simple renal cyst N28.1 Active [...]
[2018-04-30 12:02] LABS: Absolute Lymphocytes (CBC) 2.9 K/uL (0.7-4.9); Absolute Monocytes 0.5 K/uL (0.1-1.3); Absolute Neutrophil 5.1 K/uL (1.8-8.0); Basophils % 0.4 % (0-1.3); Eosinophils % 0.6 % (0-4.4); Hematocrit 44.3 % (36.0-45.0); Lymphocytes % 33.1 % (15.3-44.8); MCH 32.6 pg (27.0-35.0); MCV 96.5 fL (80-100); Monocytes % 6.4 % (3.3-12.3); RBC Red Blood Cell Count 4.59 M/uL (3.86-4.86)
[2018-04-30] MEDS ORDERED: MORPHINE 4 MG/ML SYR ONE (12:15)
[2018-04-30] MEDS ORDERED: ONDANSETRON 4 MG/2 ML VIAL ONE (12:15)
[2018-04-30 12:22] LABS: ALT/SGPT 27 U/L (12-78); AST/SGOT 16 U/L (15-37); Albumin 3.6 g/dL (3.4-5.0); Alkaline Phosphatase 82 U/L (45-117); BUN Blood Urea Nitrogen 20 mg/dL (7-18); Bicarbonate 27 mmol/L (21-32); Bilirubin Direct 0.2 mg/dL (0-0.2); Bilirubin Total 0.9 mg/dL (0.2-1.0); Glucose Level 93 mg/dL (74-106); Magnesium 2.4 mg/dL (1.8-2.4); NT PRO-BNP 79 pg/mL (<125); Potassium 3.5 mmol/L (3.5-5.1); Protein, Total 7.3 g/dL (6.4-8.2); Sodium Level 142 mmol/L (136-145); Troponin (Emerg Dept Use Only) < 0.02 ng/mL (0.0-0.045)
--- NOTE | 2018-04-30 13:22 | ER ---
Nurse's Notes [facility] Name: Toshia Barone Age: 63 yrs Sex: Female : 1955 Arrival Date: 04/30/2018 Time: 11:37 Bed 4 Private MD: Tonio Miller Diagnosis: Chest pain, unspecified Presentation: 04/30 11:40 Presenting complaint: Patient states: She has been having substernal chest pain for the aj1 past 2 days that radiates to the jaw. Reports SOB, nausea, palpitations, dizziness. Reports that she has a history of PR, reports that the pain feels the same as her previous PR. Transition of care: patient was not received from another setting of care. Onset of symptoms was April 28, 2018. Risk Assessment: Do you want to hurt yourself or someone else? Patient reports no desire to harm self or others. Initial Sepsis Screen: Does the patient meet any 2 criteria? No. Patient's initial sepsis screen is negative. Does the patient have a suspected source of infection? No. Patient's initial sepsis screen is negative. Care prior to arrival: None. 11:40 Method Of Arrival: Ambulatory aj1 11:40 Acuity: SHARON 2 aj1 Triage Assessment: 11:42 General: Appears in no apparent distress. comfortable, Behavior is calm, cooperative, aj1 appropriate for age. Pain: Complains of pain in mid-sternal area Pain radiates to left jaw Pain currently is 6 out of 10 on a pain scale. Quality of pain is described as pressure. Neuro: Level of Consciousness is awake, alert, obeys commands. Cardiovascular: Patient's skin is warm and dry. Cardiovascular: Reports chest pain, nausea, palpitations, shortness of breath. Respiratory: Reports shortness of breath Airway is patent Respiratory effort is even, unlabored, Respiratory pattern is regular, symmetrical. Historical: - Allergies: 11:42 methylphenidate HCl; aj1 11:42 PENICILLINS; aj1 11:42 Reglan; aj1 11:42 Ritalin; aj1 - PMHx: 11:42 B12 deficiency; CHF; COPD; CVA; DVT; fatty liver; GERD; Hyperlipidemia; Hypertension; aj1 Hypothyroidism; Kidney stones; Myocardial infarction; Pancreatitis; TIA; - Immunization history:: Flu vaccine is not up to date. - Social history:: Smoking status: Patient/guardian denies using tobacco. - Ebola Screening: : Patient denies travel to an Ebola-affected area in the 21 days before illness onset. Screenin:49 Abuse screen: Denies threats or abuse. Denies injuries from another. Nutritional sv screening: No deficits noted. Tuberculosis screening: No symptoms or risk factors identified. Fall Risk None identified. Assessment: 11:50 General: Appears in no apparent distress. uncomfortable, Behavior is calm, cooperative, sv appropriate for age. Pain: Complains of pain in mid-sternal area Pain currently is 5 out of 10 on a pain scale. Quality of pain is described as sharp, Pain began 2 days ago Is intermittent, Aggravated by increased activity, Also complains of shortness of breath. Neuro: Level of Consciousness is awake, alert, obeys commands, Oriented to person, place, time, situation, Moves all extremities. Full function Gait is steady, Speech is normal. Cardiovascular: Heart tones S1 S2 present Patient's skin is warm and dry. Pulses are 3+ in right radial artery and left radial artery. Respiratory: Respiratory effort is even, unlabored, Respiratory pattern is regular, symmetrical, Breath sounds are clear bilaterally. Derm: Skin is pink, warm \T\ dry. Musculoskeletal: Range of motion: intact in all extremities. Vital Signs: 11:42 BP 132 / 82; Pulse 72; Resp 18; Temp 97.1; Pulse Ox 100% ; Weight 76.66 kg (R); Height aj1 5 ft. 5 in. (165.10 cm); Pain 5/10; 12:30 BP 124 / 79; Pulse 61; Resp 16; Pulse Ox 100% on R/A; sv 13:14 BP 157 / 78; Pulse 58; Resp 13; Pulse Ox 100% ; sv 13:45 BP 138 / 81; Pulse 59; Resp 15; Pulse Ox 100% ; sv 14:00 BP 149 / 80; Pulse 57; Resp 13; Pulse Ox 100% ; sv 11:42 Body Mass Index 28.12 (76.66 kg, 165.10 cm) aj1 Vitals: 11:57 Cardiac Rhythm Assessment Sinus rhythm. sv ED Course: 11:37 Patient arrived in ED. sb2 11:37 Tonio Miller DO is Private Physician. sb2 11:41 Triage completed. aj1 11:42 Arm band placed on Patient placed in an exam room. aj1 11:43 Rittger, Guru, MD is Attending Physician. kdr 11:48 Inserted saline lock: 20 gauge in right antecubital area, using aseptic technique. hb 11:49 Joan Kelly RN is Primary Nurse. sv 11:49 Patient has correct armband on for positive identification. Placed in gown. Bed in low hb position. Call light in reach. Side rails up X2. youth nutritional monitor on. Pulse ox on. NIBP on. 11:49 Patient has correct armband on for positive identification. Placed in gown. Bed in low sv position. Call light in reach. 11:49 Patient maintains SpO2 saturation greater than 95% on room air. hb 11:57 Awaiting ED provider evaluation. sv 12:04 ED physician to see patient. sv 12:28 EKG done, by technical sales director. reviewed by Guru Kaiser MD. at1 13:20 Tonio Miller DO is Hospitalizing Provider. kdr 13:20 Brendan Edwards MD is Hospitalizing Provider. kdr 13:23 XRAY Chest (1 view) In Process Unspecified. EDMS 14:53 No provider procedures requiring assistance completed. Patient admitted, IV remains in sv place. intact. Administered Medications: 12:10 Drug: Zofran 4 mg Route: IVP; Site: right antecubital; sv 12:30 Follow up: Response: No adverse reaction sv 12:12 Drug: morphine 2 mg Route: IVP; Site: right antecubital; sv 12:30 Follow up: Response: No adverse reaction sv 13:55 Drug: fentaNYL (PF) 25 mcg Route: IVP; Site: right antecubital; sv 14:15 Follow up: Response: No adverse reaction sv Point of Care Testing: Blood Glucose: 13:55 Blood Glucose: 69 mg/dL; sv Ranges: Outcome: 13:21 Decision to Hospitalize by Provider. kdr 14:53 Admitted to Tele accompanied by tech, via wheelchair, room 224, with chart, Report sv called to Carlos COBB 14:53 Condition: stable 14:53 Instructed on the need for admit. 15:01 Patient left the ED. sv Signatures: Dispatcher [employer] EDMS Laura Barakat RN RN aj1 Joan Kelly, REZA COBB sv Guru Kaiser MD MD kdr Allyson Gooden, validation leader EKG Tat1 Nusrat Riojas, RN RN hb Yulia Yanes sb2
--- NOTE | 2018-04-30 13:22 | EDPHYS ---
Physician Documentation [facility] Name: Toshia Barone Age: 63 yrs Sex: Female : 1955 Arrival Date: 04/30/2018 Time: 11:37 Bed 4 Private MD: Paul [facility] ED Physician Guru Kaiser HPI: 05/01 09:18 This 63 yrs old Female presents to ER via Ambulatory with complaints of Chest kdr Pain, Jaw Pain. 09:18 The patient or guardian reports chest pain that is located primarily in the substernal kdr area. Onset: suddenly, 2 day(s) ago. The pain radiates to the left arm, the left shoulder, left neck, left jaw. Associated signs and symptoms: Pertinent positives: diaphoresis, nausea, shortness of breath, Pertinent negatives: abdominal pain, lower extremity pain, lower extremity swelling, lightheadedness, near syncope, palpitations. The chest pain is described as aching, burning, dull, a heaviness. Duration: The patient or guardian reports multiple episodes, that are intermittent, that wax and wane, with no pattern. Modifying factors: The symptoms are alleviated by nothing. the symptoms are aggravated by nothing. Severity of pain: At its worst the pain was moderate just prior to arrival, in the emergency department the pain has improved mildly. The patient has experienced similar episodes in the past, multiple times. Historical: - Allergies: 04/30 11:42 methylphenidate HCl; aj1 11:42 PENICILLINS; aj1 11:42 Reglan; aj1 11:42 Ritalin; aj1 - PMHx: 11:42 B12 deficiency; CHF; COPD; CVA; DVT; fatty liver; GERD; Hyperlipidemia; Hypertension; aj1 Hypothyroidism; Kidney stones; Myocardial infarction; Pancreatitis; TIA; - Immunization history:: Flu vaccine is not up to date. - Social history:: Smoking status: Patient/guardian denies using tobacco. - Ebola Screening: : Patient denies travel to an Ebola-affected area in the 21 days before illness onset. ROS: 05/01 09:18 Constitutional: Negative for fever, chills, and weight loss, Eyes: Negative for injury, kdr pain, redness, and discharge, ENT: Negative for injury, pain, and discharge, Neck: Negative for injury, pain, and swelling, Respiratory: Negative for shortness of breath, cough, wheezing, and pleuritic chest pain, Abdomen/GI: Negative for abdominal pain, nausea, vomiting, diarrhea, and constipation, Back: Negative for injury and pain, : Negative for injury, bleeding, discharge, and swelling, MS/Extremity: Negative for injury and deformity, Skin: Negative for injury, rash, and discoloration, Neuro: Negative for headache, weakness, numbness, tingling, and seizure activity. Psych: Negative for depression, anxiety, suicide ideation, homicidal ideation, and hallucinations, Allergy/Immunology: Negative for hives, rash, and allergies, Endocrine: Negative for neck swelling, polydipsia, polyuria, polyphagia, and marked weight changes, Hematologic/Lymphatic: Negative for swollen nodes, abnormal bleeding, and unusual bruising. Cardiovascular: Positive for chest pain, Negative for edema, orthopnea, palpitations, paroxysmal nocturnal dyspnea, acute changes. Exam: 09:18 Constitutional: This is a well developed, well nourished patient who is awake, alert, kdr and in no acute distress. Head/Face: Normocephalic, atraumatic. Eyes: Pupils equal round and reactive to light, extra-ocular motions intact. Lids and lashes normal. Conjunctiva and sclera are non-icteric and not injected. Cornea within normal limits. Periorbital areas with no swelling, redness, or edema. Neck: Trachea midline, no thyromegaly or masses palpated, and no cervical lymphadenopathy. Supple, full range of motion without nuchal rigidity, or vertebral point tenderness. No Meningismus. Chest/axilla: Normal chest wall appearance and motion. Nontender with no deformity. No lesions are appreciated. Cardiovascular: Regular rate and rhythm with a normal S1 and S2. No gallops, murmurs, or rubs. Normal PMI, no JVD. No pulse deficits. Respiratory: Lungs have equal breath sounds bilaterally, clear to auscultation and percussion. No rales, rhonchi or wheezes noted. No increased work of breathing, no retractions or nasal flaring. Abdomen/GI: Soft, non-tender, with normal bowel sounds. No distension or tympany. No guarding or rebound. No evidence of tenderness throughout. Back: No spinal tenderness. No costovertebral tenderness. Full range of motion. Skin: Warm, dry with normal turgor. Normal color with no rashes, no lesions, and no evidence of cellulitis. MS/ Extremity: Pulses equal, no cyanosis. Neurovascular intact. Full, normal range of motion. Neuro: Awake and alert, GCS 15, oriented to person, place, time, and situation. Cranial nerves II-XII grossly intact. Motor strength 5/5 in all extremities. Sensory grossly intact. Cerebellar exam normal. Normal gait. Psych: Awake, alert, with orientation to person, place and time. Behavior, mood, and affect are within normal limits. Vital Signs: 04/30 11:42 BP 132 / 82; Pulse 72; Resp 18; Temp 97.1; Pulse Ox 100% ; Weight 76.66 kg (R); Height aj1 5 ft. 5 in. (165.10 cm); Pain 5/10; 12:30 BP 124 / 79; Pulse 61; Resp 16; Pulse Ox 100% on R/A; sv 13:14 BP 157 / 78; Pulse 58; Resp 13; Pulse Ox 100% ; sv 13:45 BP 138 / 81; Pulse 59; Resp 15; Pulse Ox 100% ; sv 14:00 BP 149 / 80; Pulse 57; Resp 13; Pulse Ox 100% ; sv 11:42 Body Mass Index 28.12 (76.66 kg, 165.10 cm) aj1 MDM: 13:21 Patient medically screened. [facility] 05/01 09:18 Data reviewed: vital signs, nurses notes, lab test result(s), radiologic studies. [facility] 04/30 11:51 Order name: Basic Metabolic Panel; Complete Time: 13:11 [facility] 04/30 11:51 Order name: CBC with Diff; Complete Time: 12:06 [facility] 04/30 11:51 Order name: LFT's; Complete Time: 13:11 [facility] 04/30 11:51 Order name: Magnesium; Complete Time: 13:11 [facility] 04/30 11:51 Order name: NT PRO-BNP; Complete Time: 13:11 [facility] 04/30 11:51 Order name: PT-INR; Complete Time: 12:06 [facility] 04/30 11:51 Order name: Troponin (emerg Dept Use Only); Complete Time: 13:11 [facility] 04/30 11:51 Order name: XRAY Chest (1 view) kdr 04/30 11:51 Order name: EKG; Complete Time: 11:52 [facility] 04/30 14:04 Order name: Diet Ada 1800 Jesus; Complete Time: 14:04 eb 04/30 14:04 Order name: Glucose, Ancillary Testing EDID 04/30 11:51 Order name: Cardiac monitoring; Complete Time: 11:53 kdr 04/30 11:51 Order name: EKG - Nurse/Tech; Complete Time: 11:53 kdr 04/30 11:51 Order name: IV Saline Lock; Complete Time: 11:53 kdr 04/30 11:51 Order name: Labs collected and sent; Complete Time: 11:53 kdr 04/30 11:51 Order name: O2 Per Protocol; Complete Time: 11:53 kdr 04/30 11:51 Order name: O2 Sat Monitoring; Complete Time: 11:53 kdr Administered Medications: 04/30 12:10 Drug: Zofran 4 mg Route: IVP; Site: right antecubital; sv 12:30 Follow up: Response: No adverse reaction sv 12:12 Drug: morphine 2 mg Route: IVP; Site: right antecubital; sv 12:30 Follow up: Response: No adverse reaction sv 13:55 Drug: fentaNYL (PF) 25 mcg Route: IVP; Site: right antecubital; sv 14:15 Follow up: Response: No adverse reaction sv Point of Care Testing: Blood Glucose: 13:55 Blood Glucose: 69 mg/dL; sv Ranges: Critical Glucose Levels:Adult <50 mg/dl or >400 mg/dl <40 mg/dl or >180 mg/dl Disposition: 04/30/18 13:21 Hospitalization ordered by Brendan Edwards for Observation. Preliminary diagnosis is Chest pain, unspecified. - Bed requested for Telemetry/MedSurg (observation). - Status is Observation. sv - Condition is Fair. - Problem is new. - Symptoms have improved. UTI on Admission? No Signatures: Dispatcher [employer] EDID Laura Barakat RN RN ajJoan Powell RN RN sv Woody, Diana, RN RN dw Rittger, Kevin, MD MD kdr Corrections: (The following items were deleted from the chart) 14:32 13:21 Hospitalization Ordered by Brendan Edwards MD for Observation. Preliminary diagnosis dw is Chest pain, unspecified. Bed requested for Telemetry/MedSurg (observation). Status is Observation. Condition is Fair. Problem is new. Symptoms have improved. UTI on Admission? No. kdr 15:01 14:32 04/30/2018 13:21 Hospitalization Ordered by Brendan Edwards MD for Observation. sv Preliminary diagnosis is Chest pain, unspecified. Bed requested for Telemetry/MedSurg (observation). Status is Observation. Condition is Fair. Problem is new. Symptoms have improved. UTI on Admission? No. dw
--- NOTE | 2018-04-30 13:32 | RAD REPORT ---
EXAM DESCRIPTION: Kristyn Single View04/30/2018 1:23 pm CLINICAL HISTORY: Chest pain COMPARISON: November 2017 FINDINGS: The lungs appear clear of acute infiltrate. The heart is normal size. Postsurgical change s are noted. IMPRESSION: No acute abnormalities displayed
[2018-04-30] MEDS ORDERED: FENTANYL CITR 100 MCG/2 ML ONE (14:06)
[2018-04-30] MEDS ORDERED: ACETAMINOPHEN 500 MG TAB PO PRN (15:06)
[2018-04-30] MEDS ORDERED: ALBUTEROL 2.5 MG/3 ML NEB SOL NEB PRN (15:06)
[2018-04-30 15:11] VITALS: BMI 28.1
[2018-04-30] MEDS ORDERED: INFLUENZA VACCINE (for 3y+) 0.5 ML DOSE IMVAC ONE (16:00)
[2018-04-30] MEDS ORDERED: POTASSIUM 25 MEQ EFFERV TAB PO ONE (17:30)
[2018-04-30] MEDS: ONDANSETRON 4 MG/2 ML VIAL IV PRN ×2 (17:39→23:01)
--- NOTE | 2018-04-30 19:11 | P.HP ---
Certification for Inpatient Patient admitted to: Observation With expected LOS: <2 Midnights Practitioner: I am a practitioner with admitting privileges, knowledge of patient current condition, hospital course, and medical plan of care. Services: Services provided to patient in accordance with Admission requirements found in Title 42 Section 412.3 of the Code of Federal Regulations Patient History Date of Service: 05/01/18 Primary Care Provider: Dr. Mateus Miller Reason for admission: Chest pain History of Present Illness: This is a 63-year-old former smoker female with history of COPD, CHF, acute CVA , coronary stents approximately 10 years ago presented with substernal chest pain. Per patient, the pain was substernal that started the morning of admission. This pain started when patient was not doing any anything special though pain is is exacerbated by exertion. Describes it as a aching type of pain," like someone is sitting on my chest." States that it is intermittent, lasts a couple of min and resolves spontaneously before it returns again. It is associated with nausea, diaphoresis, left arm pain (which has resolved now) and slight shortness of breath especially with exertion. No alleviating factors. No prior episodes like this. At the time of my exam, patient was alert oriented x3, in no acute distress. Allergies metoclopramide HCl [From Reglan] Allergy (Intermediate, Verified 05/15/14 00:00) Nausea/Vomiting methylphenidate HCl [From Ritalin] Adverse Reaction (Mild, Verified 05/15/14 00: 00) NERVOUS Penicillins Adverse Reaction (Mild, Verified 05/15/14 00:00) Rash Home Medications: Aspirin [Aspirin EC 81 MG] 81 mg PO DAILY 04/30/18 Atenolol [Tenormin] 100 mg PO DAILY 04/30/18 Clopidogrel Bisulfate [Plavix] 75 mg PO DAILY 04/30/18 Esomeprazole Mag Trihydrate [Nexium] 40 mg PO DAILY 04/30/18 Furosemide [Lasix] 20 mg PO DAILY 04/30/18 Hydrocodone Bit/Acetaminophen [Hydrocodon-Acetaminoph 7.5-325] 1 each PO BID PRN 04/30/18 Levothyroxine [Synthroid] 50 mcg PO [id number] 04/30/18 Venlafaxine HCl *Xr* [Effexor XR] 75 mg PO DAILY 04/30/18 - Past Medical/Surgical History Has patient received pneumonia vaccine in the past: Yes Diabetic: No -: HTN -: CHF -: COPD -: HYPERLIPIDEMIA -: PA -: Chronic pancreatitis -: Depression with anxiety -: DVT R leg -: cerebellar ataxia -: DDD/DJD of the back, Osteoarthritis -: kidney stones -: CVA (2014) -: Stents placed 2007 -: Mass removed - Partial upper Left lobectomy -: Cholecystectomy -: Hysterectomy -: pancreatic stent -: Psychosocial/ Personal History: - Family History Sister -: Diabetes, Liver disease Mother -: Heart disease - Social History Smoking Status: Never smoker Alcohol use: No CD- Drugs: No Caffeine use: Yes Place of Residence: Home Review of Systems General: Unremarkable Eyes: Unremarkable ENT: Unremarkable Respiratory: SOB with Excertion, As per HPI Cardiovascular: Chest Pain, As per HPI Gastrointestinal: Nausea, As per HPI Genitourinary: Unremarkable Musculoskeletal: Unremarkable Integumentary: Unremarkable Neurological: Unremarkable Lymphatics: Unremarkable Physical Examination - Vital Signs Temperature: 97.4 F Blood Pressure: 124/58 Pulse: 61 Respirations: 20 Pulse Ox (%): 100 - Physical Exam General: Alert, In no apparent distress, Oriented x3 HEENT: Atraumatic, PERRLA, Mucous membr. moist/pink, EOMI, Sclerae nonicteric Neck: Supple, 2+ carotid pulse no bruit, No LAD, Without JVD or thyroid abnormality Respiratory: Clear to auscultation bilaterally, Normal air movement Cardiovascular: Regular rate/rhythm, Normal S1 S2 Gastrointestinal: Normal bowel sounds, No tenderness Musculoskeletal: No swelling, No tenderness Integumentary: No rashes Neurological: Normal gait, Normal speech, Normal strength at 5/5 x4 extr, Normal tone, Normal affect - Studies Laboratory Data (last 24 hrs) 04/30/18 11:45: PT 11.8, INR 1.00 04/30/18 11:45: WBC 8.6, Hgb 15.0, Hct 44.3, Plt Count 199 04/30/18 11:45: Sodium 142, Potassium 3.5, BUN 20 H, Creatinine 0.90, Glucose 93 , Magnesium 2.4, Total Bilirubin 0.9, AST 16, ALT 27, Alkaline Phosphatase 82 Assessment and Plan - Plan This is a 63-year-old female with: Chest pain, rule out ACS Chronic CHF COPD History of CVA, without residual affects History of coronary stents Cardiology consulted Echo ordered, restart beta-jhonny, Plavix Per patient she does have a diagnosis of CHF, on chart review, on last echo in 2015 without any evidence of CHF. Will repeat ECHO Pain control with morphine. Nitro p.r.n. Oxygen as needed Breathing treatments as needed DVT prophylaxis: On aspirin and Plavix For GI prophylaxis: Not needed Diet: Heart healthy Disposition: Admit to floor with tele. Pending cardiology recommendation and an echo. Discharge Plan: Home - Advance Directives Does patient have a Living Will: No Does patient have a Durable POA for Healthcare: No
[2018-04-30] MEDS ORDERED: MORPHINE 2 MG/ML SYR IV PRN (20:05)
[2018-04-30] MEDS ORDERED: HYDROCODONE/APAP 7.5/325 MG TAB PO PRN (20:05)
[2018-05-01 04:55] LABS: Absolute Monocytes 0.3 K/uL (0.1-1.3); Absolute Neutrophil 3.3 K/uL (1.8-8.0); Basophils % 0.2 % (0-1.3); Eosinophils % 0.8 % (0-4.4); Lymphocytes % 44.6 % (15.3-44.8); MCH 32.6 pg (27.0-35.0); MCV 96.7 fL (80-100); MPV 8.8 fL (7.6-11.3); Monocytes % 4.8 % (3.3-12.3); RBC Red Blood Cell Count 3.93 M/uL (3.86-4.86)
[2018-05-01 05:05] LABS: Albumin 2.9 g/dL (3.4-5.0); Bilirubin Total 0.5 mg/dL (0.2-1.0); Potassium 4.5 mmol/L (3.5-5.1); Protein, Total 5.8 g/dL (6.4-8.2)
[2018-05-01] MEDS: ONDANSETRON 4 MG/2 ML VIAL IV PRN ×3 (05:16→17:58)
[2018-05-01] MEDS: HYDROCODONE/APAP 7.5/325 MG TAB PO PRN ×2 (05:17→10:21)
[2018-05-01 05:40] LABS: Urine Appearance CLOUDY; Urine Bilirubin NEGATIVE (NEG); Urine Blood NEGATIVE (NEG); Urine Color YELLOW; Urine Glucose NEGATIVE (NEG); Urine Protein NEGATIVE (NEG); Urine Specific Gravity >=1.030 (1.005-1.030); Urine pH 6.5 (5.0-7.0)
[2018-05-01 05:42] LABS: Urine Microscopic Reflex ORDER UMIC
[2018-05-01 05:48] LABS: Urine Mucus 4+ /HPF (NONE SEEN)
[2018-05-01 05:49] LABS: Urine Bacteria <20 /HPF (<20)
[2018-05-01 05:50] LABS: Urine Culture Reflex Order NOT NEEDED; Urine RBC <5 /HPF (NONE SEEN)
[2018-05-01] MEDS ORDERED: LEVOTHYROXINE SOD 0.05 MG TABLET PO SCH (06:00)
[2018-05-01] MEDS ORDERED: PANTOPRAZOLE 40MG TABLET PO SCH (06:30)
--- NOTE | 2018-05-01 07:10 | EKG ---
Test Date: 2018-04-30 Test Time: 11:52:15 Hedis Abstractor: ALVAREZ MEASUREMENT RESULTS: Intervals: Rate: 68 CO: 116 QRSD: 70 QT: 372 QTc: 395 [place]: P: -11 CO: 116 QRS: 12 T: 37 INTERPRETIVE STATEMENTS: Normal sinus rhythm Normal ECG Compared to ECG 12/15/2017 17:40:02 No significant changes Electronically Signed On 05-01-18 07:07:20 ANTENNA INSTALLER by Rohan Bañuelos
[2018-05-01] MEDS ORDERED: ATENOLOL 50 MG TAB PO SCH (09:00)
[2018-05-01] MEDS ORDERED: VENLAFAXINE HCL XR 75 MG CAP PO SCH (09:00)
[2018-05-01] MEDS ORDERED: ASPIRIN EC 81 MG TAB PO SCH (09:00)
[2018-05-01] MEDS ORDERED: CLOPIDOGREL 75 MG TABLET PO SCH (09:00)
[2018-05-01] MEDS ORDERED: FUROSEMIDE 20 MG TABLET PO SCH (09:00)
[2018-05-01 11:06] VITALS: O2SAT 97
--- NOTE | 2018-05-01 13:13 | CON ---
Date of Consultation: 05/01/2018 Reason For Consultation: Chest pain. History Of Present Illness: Ms. Barone is a 63-year-old white woman, who has had history of coronary artery disease, had a stent in the past in the LAD and RCA. She recently in 2014 had a normal echo, normal CAT, normal carotid Doppler with patent LAD and RCA stent. Has not had any further testing s augusto. She came in with mid-epigastric pain that has lasted 6-8 hours with nausea. No diaphoresis. No vomiting. No PND, orthopnea, pedal edema, palpitations, or syncope. Had a negative EKG. Negativ e troponin, MBs, and CPKs. She is pain-free now. Allergies: SHE IS ALLERGIC TO PENICILLIN AND REGLAN. Past Medical History: Includes fatty liver, hypertension, dyslipidemia, CVA, history of TIA as well as pancreatitis. She has a history of coronary artery disease status post LAD and RCA stent. Histor y of chronic diastolic congestive heart failure, hypothyroidism, gastroesophageal reflux disease, dep ression, and history of CABG. Family History: Noncontributory. Social History: Noncontributory. Medications: At home include Effexor, Tylenol No.3, aspirin, Plavix, Tenormin, Nexium, Lasix, and th yroid. Physical Examination: Vital signs: Stable. She was afebrile, sinus rhythm. HEENT: Negative. Neck: Supple without any bruit, lymphadenopathy, JVD, or thyromegaly. Chest: Clear to auscultation and percussion. Cardiac: Revealed a regular rhythm and rate without murmurs, gallops, or rubs. Abdomen: Benign. Extremities: Revealed no clubbing, cyanosis, or edema. Diagnostic Data: As stated earlier. Impression And Plan: Atypical chest pain, most likely gastroesophageal reflux disease in nature. Th e patient has symptoms for over 6 hours with some nausea, no shortness of breath, but yet her EKG is normal. Her enzymes are normal. Nevertheless, she is due to have a new stress test and she has an e chocardiogram pending today. We cannot do the stress test today secondary to lack of isotope. We wi ll see what the echocardiogram shows. If this is normal, she can go home and we will arrange for her to have an outpatient stress test. She also told me that she had a positive carotid Doppler here in the hospital, but she is not sure whether it was done here or in [place] and they told that she had bilateral carotid blockage, I will check on that. Her other problems including hypertension, dyslip idemia, history of CVA, DVT and TIA seem to be stable. She has fatty liver and pancreatitis. Her pa ncreatitis certainly could explain some of her symptoms as well. Her gastroesophageal reflux disease , depression, and hypothyroidism seems to be stable. Ms. Barone have a history of chronic diastolic congestive heart failure, but has never been failure before as far as we know. She can go home whene madina it is okay with Dr. Edwards after the echocardiogram is done. CAREN/MARIJA Voice ID: [id number] Report ID: [id number]
[2018-05-01 15:04] VITALS: TEMP 97.4
--- NOTE | 2018-05-01 15:06 | P.PN ---
Subjective Date of Service: 05/01/18 Primary Care Provider: Dr. Mateus Miller Chief Complaint: Chest pain Patient seen and examined at bedside. No family at bedside. case discussed with nursing staff. Patient reports improved chest pain, though still there. Denies any shortness of breath, vision changes, speech changes, headache, dizziness or syncopal/presyncopal episode. Review of Systems As noted above Physical Examination - Vital Signs Temperature: 97.4 F Blood Pressure: 124/58 Pulse: 61 Respirations: 20 Pulse Ox (%): 100 - Physical Exam General: Alert, In no apparent distress HEENT: Atraumatic, PERRLA, EOMI Neck: Supple, JVD not distended Respiratory: Clear to auscultation bilaterally, Normal air movement Cardiovascular: Regular rate/rhythm, Normal S1 S2 Gastrointestinal: Normal bowel sounds, No tenderness Musculoskeletal: No tenderness Integumentary: No rashes Neurological: Normal speech, Normal tone, Normal affect Lymphatics: No axilla or inguinal lymphadenopathy Assessment And Plan - Plan This is a 63-year-old female with: Chest pain, rule out ACS Chronic CHF COPD History of CVA, without residual affects History of coronary stents Cardiology consulted, recommendations appreciated Continue beta-jhonny, Plavix Per patient she does have a diagnosis of CHF, on chart review, on last echo in 2015 without any evidence of CHF. Will repeat ECHO pending Pain control with morphine. Nitro p.r.n. Oxygen as needed Breathing treatments as needed DVT prophylaxis: On aspirin and Plavix For GI prophylaxis: Not needed Diet: Heart healthy Disposition: Pending symptomatic improvement and echo.. Discharge Plan: Home Plan to discharge in: 24 Hours
[2018-05-01 17:17] VITALS: BP 114/58
--- NOTE | 2018-05-01 18:14 | P.SSS ---
Patient History Date of Service: 05/01/18 Primary Care Provider: Dr. Mateus Miller Reason for admission: Chest pain History of Present Illness: This is a 63-year-old former smoker female with history of COPD, CHF, acute CVA , coronary stents approximately 10 years ago presented with substernal chest pain. Per patient, the pain was substernal that started the morning of admission. This pain started when patient was not doing any anything special though pain is is exacerbated by exertion. Describes it as a aching type of pain," like someone is sitting on my chest." States that it is intermittent, lasts a couple of min and resolves spontaneously before it returns again. It is associated with nausea, diaphoresis, left arm pain (which has resolved now) and slight shortness of breath especially with exertion. No alleviating factors. No prior episodes like this. At the time of my exam, patient was alert oriented x3, in no acute distress. Allergies metoclopramide HCl [From Reglan] Allergy (Intermediate, Verified 05/15/14 00:00) Nausea/Vomiting methylphenidate HCl [From Ritalin] Adverse Reaction (Mild, Verified 05/15/14 00: 00) NERVOUS Penicillins Adverse Reaction (Mild, Verified 05/15/14 00:00) Rash Home Medications: Aspirin [Aspirin EC 81 MG] 81 mg PO DAILY 04/30/18 Atenolol [Tenormin] 100 mg PO DAILY 04/30/18 Clopidogrel Bisulfate [Plavix*] 75 mg PO DAILY 04/30/18 Esomeprazole Mag Trihydrate [Nexium] 40 mg PO DAILY 04/30/18 Furosemide [Lasix*] 20 mg PO DAILY 04/30/18 Hydrocodone Bit/Acetaminophen [Hydrocodon-Acetaminoph 7.5-325] 1 each PO BID PRN 04/30/18 Levothyroxine [Synthroid*] 50 mcg PO [id number] 04/30/18 Venlafaxine HCl *Xr* [Effexor XR] 75 mg PO DAILY 04/30/18 - Past Medical/Surgical History Has patient received pneumonia vaccine in the past: Yes Diabetic: No -: HTN -: CHF -: COPD -: HYPERLIPIDEMIA -: OR -: Chronic pancreatitis -: Depression with anxiety -: DVT R leg -: cerebellar ataxia -: DDD/DJD of the back, Osteoarthritis -: kidney stones -: CVA (2014) -: Stents placed 2007 -: Mass removed - Partial upper Left lobectomy -: Cholecystectomy -: Hysterectomy -: pancreatic stent -: Psychosocial/ Personal History: - Family History Sister -: Diabetes, Liver disease Mother -: Heart disease - Social History Smoking Status: Never smoker Alcohol use: No CD- Drugs: No Caffeine use: Yes Place of Residence: Home Review of Systems As noted Physical Examination - Vital Signs Temperature: 97.4 F Blood Pressure: 114/58 Pulse: 67 Respirations: 18 Pulse Ox (%): 98 - Physical Exam General: Alert, In no apparent distress HEENT: Atraumatic, PERRLA, Mucous membr. moist/pink, EOMI, Sclerae nonicteric Neck: Supple, 2+ carotid pulse no bruit, No LAD, Without JVD or thyroid abnormality Respiratory: Clear to auscultation bilaterally, Normal air movement Cardiovascular: Regular rate/rhythm, Normal S1 S2 Gastrointestinal: Normal bowel sounds, No tenderness Musculoskeletal: No tenderness Integumentary: No rashes Neurological: Normal gait, Normal speech, Normal strength at 5/5 x4 extr, Normal tone, Normal affect Lymphatics: No axilla or inguinal lymphadenopathy Treatment Summary: Chest pain, rule out ACS Chronic CHF COPD History of CVA, without residual affects History of coronary stents Cardiology was consulted, Continue beta-jhonny, Plavix Per patient she does have a diagnosis of CHF, on chart review, on last echo in 2015 without any evidence of CHF. Repeat echo normal Pain control with morphine. Nitro p.r.n. Oxygen as needed Breathing treatments as needed Acute coronary syndrome was ruled out during this hospitalization. She was deemed a safe discharge from cardiology point of view. She will follow up with cardiology outpatient in 1-2 weeks. - Disposition Discharge Date: 05/01/18 Disposition: ROUTINE DISCHARGE Condition: GOOD Patient Discharge Instructions: Please follow up with the primary care physician in 1 week. Please follow up with cardiology in 1-2 weeks. Diet: AHA Activity: Ad julia Physician Review: Patient Assessed, Agree with Above Assessment and Plan Time Spent Managing Pts Care (In Minutes): 45
--- NOTE | 2018-05-03 19:23 | CON ---
Date of Consultation: 05/01/2018 Admitted on 04/30/2018. She was seen on 05/01/2018. Reason For Consultation: Chest pain. History Of Present Illness: Ms. Barone is a 63-year-old woman. Has a history of CAD, fatty liver, h ypertension, CHF, hypothyroidism, dyslipidemia, TIA, pancreatitis, gastroesophageal reflux disease, d epression, CVA, and history of DVT, came in with sharp chest pain, stabbing, radiating to the left sh oulder. Some nausea and diaphoresis. No shortness of breath. The patient's pain is not exertional. No PND, orthopnea, or pedal edema. Last catheterization in 2014 showed patent LAD and RCA stent. Last echocardiogram and carotid in 2014 were negative. All her labs were negative at this point. Allergies: SHE IS ALLERGIC TO PENICILLIN AND REGLAN. Review of Systems: Negative. Social History: Negative. Family History: Negative. Medications: At home include Effexor, Tylenol No. 3, aspirin, and Plavix, Tenormin, Nexium, Lasix, a nd Synthroid. Physical Examination: Vital Signs: Stable. Afebrile. HEENT: Negative. Neck: Supple. No lymphadenopathy, JVD, thyromegaly, or bruit. Chest: Clear to auscultation and percussion. Cardiac: Revealed a regular rhythm and rate. No murmurs, gallops, or rubs. Abdomen: Benign. Extremities: Revealed no clubbing, cyanosis, or edema. Diagnostic Data: As stated above. Of note, despite the fact that she had a normal carotid artery Do ppler in 2015. She said they told her in [facility] that she has a carotid Doppler that showed a 70 and 80 % stenosis in her carotid. Those records are unavailable. Impression And Plan: 1.Chest pain. Certainly could be related to coronary artery disease, although she is ruled out. EK G is normal. Echocardiogram is pending. She can go home, and we can do an outpatient Lexiscan. 2.Questionable carotid stenosis by Doppler at [facility]. I will try to get those records. 3.History of congestive heart failure, undocumented, possibly diastolic. 4.History of fatty liver. 5.Hypertension. 6.Dyslipidemia, well controlled. 7.History of transient ischemic attack. 8.History of pancreatitis. 9.History of hypothyroidism. 10.History of gastroesophageal reflux disease. 11.History of depression. 12.History of cerebrovascular accident. 13.History of deep venous thrombosis. As stated earlier, the patient can have an outpatient Lexisca n and we will see her in the office. I will see what the echocardiogram shows before she leaves. I will check on her carotid report from [facility]. CAREN/MARIJA Voice ID: [id number] Report ID: [id number]
--- NOTE | 2018-05-04 07:25 | ECHO ---
HEIGHT: 5 ft 5 in WEIGHT: 169 lb 0 oz DATE OF STUDY: 05/01/[address]: Brendan Edwards MD 2-DIMENSIONAL: YES M.MODE: YES DOPPLER: YES COLOR FLOW: YES TDS: NO PORTABLE: NO DEFINITY: NO BUBBLE STUDY: NO DIAGNOSIS: CONGESTIVE HEART FAILURE CARDIAC HISTORY: CATHERIZATION: YES SURGERY: NO PROSTHETIC VALVE: NO PACEMAKER: NO MEASUREMENTS (cm) DIASTOLIC (NORMALS) SYSTOLIC (NORMALS) IVSd 1.0 (0.6-1.2) LA Diam 3.2 (1.9-4.0) LVEF 76% LVIDd 4.3 (3.5-5.7) LVIDs 2.3 (2.0-3.5) %FS 45% LVPWd 0.9 (0.6-1.2) Ao Diam 3.0 (2.0-3.7) 2 DIMENSIONAL ASSESSMENT: RIGHT ATRIUM: NORMAL LEFT ATRIUM: NORMAL RIGHT VENTRICLE: NORMAL LEFT VENTRICLE: NORMAL TRICUSPID VALVE: NORMAL MITRAL VALVE: NORMAL PULMONIC VALVE: NORMAL AORTIC VALVE: NORMAL PERICARDIAL EFFUSION: NONE AORTIC ROOT: NORMAL LEFT VENTRICULAR WALL MOTION: NORMAL DOPPLER/COLOR FLOW: NORMAL COMMENTS: NORMAL 2D ECHOCARDIOGRAM WITH DOPPLER. NO CONGESTIVE HEART FAILURE. NO WALL MOTION ABNORMALITY. TECHNOLOGIST: Javi VELA
== END 2018-05-01 20:12 | disposition home or self-care (01) ==
LOC: ER 11:35 → ERHOLD 14:04 → 2ND 14:53
PROVIDERS: ADMIT Family Medicine; ATTEND Family Medicine
DX: R07.9 Chest pain, unspecified (principal); I11.0 Hypertensive heart disease with heart failure; I50.32 Chronic diastolic (congestive) heart failure; E03.9 Hypothyroidism, unspecified; K21.9 Gastro-esophageal reflux disease without esophagitis; J44.9 Chronic obstructive pulmonary disease, unspecified; F32.9 Major depressive disorder, single episode, unspecified; Z95.1 Presence of aortocoronary bypass graft; Z86.73 Personal history of transient ischemic attack (TIA), and cerebral infarction without residual deficits; Z79.82 Long term (current) use of aspirin; Z88.0 Allergy status to penicillin; Z87.891 Personal history of nicotine dependence
CPT/HCPCS: 36415; 71045; 80048; 80053; 80061; 80076; 81003; 81015; 82962; 83735; 83880; 84484; 85025; 85610; 93005; 93306; 94760; 96374; 96375; 99285; G0378; J2405; J3010; Q2035

== ENCOUNTER 2018-07-30 10:14 | Emergency (ER) | payer OTHER ==
[2018-07-30] MEDS ORDERED: NITROGLYCERIN 0.4 MG/TAB SL ONE (11:16)
[2018-07-30] MEDS ORDERED: ASPIRIN 81 MG CHEWABLE TABLET ONE (11:16)
[2018-07-30 11:25] LABS: Absolute Lymphocytes (CBC) 2.4 K/uL (0.7-4.9); Absolute Monocytes 0.3 K/uL (0.1-1.3); Absolute Neutrophil 4.1 K/uL (1.8-8.0); Basophils % 0.4 % (0-1.3); Eosinophils % 0.7 % (0-4.4); Hematocrit 40.1 % (36.0-45.0); Lymphocytes % 34.8 % (15.3-44.8); MPV 8.5 fL (7.6-11.3); Monocytes % 4.9 % (3.3-12.3); RBC Red Blood Cell Count 4.19 M/uL (3.86-4.86)
[2018-07-30 11:30] LABS: Protime INR 1.02
[2018-07-30 11:47] LABS: ALT/SGPT 20 U/L (12-78); AST/SGOT 15 U/L (15-37); Albumin 3.3 g/dL (3.4-5.0); Alkaline Phosphatase 80 U/L (45-117); BUN Blood Urea Nitrogen 20 mg/dL (7-18); Bicarbonate 30 mmol/L (21-32); Bilirubin Direct 0.2 mg/dL (0-0.2); Bilirubin Total 0.9 mg/dL (0.2-1.0); Glucose Level 82 mg/dL (74-106); Lipase 132 U/L (73-393); Magnesium 2.1 mg/dL (1.8-2.4); NT PRO-BNP 152 pg/mL (<125); Potassium 3.7 mmol/L (3.5-5.1); Protein, Total 6.9 g/dL (6.4-8.2); Sodium Level 145 mmol/L (136-145); Troponin (Emerg Dept Use Only) < 0.02 ng/mL (0.0-0.045)
--- NOTE | 2018-07-30 11:52 | EKG ---
Test Date: 2018-07-30 Test Time: 10:48:29 Horologist Apprentice: ALVAREZ MEASUREMENT RESULTS: Intervals: Rate: 67 NM: 150 QRSD: 74 QT: 352 QTc: 371 [place]: P: 26 NM: 150 QRS: 10 T: 67 INTERPRETIVE STATEMENTS: Normal sinus rhythm Nonspecific T wave abnormality Abnormal ECG Compared to ECG 04/30/2018 11:52:15 T-wave abnormality now present Electronically Signed On 07-30-18 11:51:21 ACADEMIC COACH by Ivan Hernandez
--- NOTE | 2018-07-30 11:58 | RAD REPORT ---
EXAM DESCRIPTION: RAD - Chest Single View - 07/30/2018 11:50 am CLINICAL HISTORY: CHEST PAIN Chest pain. COMPARISON: Chest Single View dated 04/30/2018; Chest Single View dated 12/15/2017; Chest Single View dated 06/17/2017; Chest Pa And Lat (2 Views) dated 05/26/2017 FINDINGS: Portable technique limits examination quality. The lungs are grossly clear. The heart is mildly prominent with postsurgical changes present. Chronic deformity of the left thoracic cage is seen IMPRESSION: No acute intrathoracic process suspected.
[2018-07-30] MEDS ORDERED: FENTANYL CITR 100 MCG/2 ML ONE (12:00)
[2018-07-30] MEDS ORDERED: ONDANSETRON 4 MG/2 ML VIAL ONE (12:00)
--- NOTE | 2018-07-30 13:25 | RAD REPORT ---
EXAM DESCRIPTION: CT - Chest Abdomen Pelvis W Cont - 07/30/2018 1:10 pm CLINICAL HISTORY: Chest pain radiating to the back, shortness of breath, history of CHF, lobectomy a nd cardiac stenting COMPARISON: Chest films same date, CT chest March 2017 CT abdomen and pelvis July 2016 TECHNIQUE: Following dynamic enhancement using 100 milliliters nonionic IV contrast, axial imaging o f the chest, abdomen and pelvis was performed. Biphasic technique was utilized through the abdomen. Oral contrast was administered. All CT scans are performed using dose optimization technique as appropriate and may include automated exposure control or mA/KV adjustment according to patient size. FINDINGS: Patient is status post left upper lobectomy. Postsurgical changes are present at the left hilum. No acute infiltrates seen in either lung field. In the anterior mid left chest (image 23/90) t here is an 11 millimeter a amorphous nodular focus. Scarring changes are present around the left hilu m. No other mass, nodule or acute lung parenchymal process seen. The 11 millimeter nodular focus on t he left is new from 2017. No pleural effusion, pleural thickening or pneumothorax. No significant aortic or pulmonary arterial tree finding. Mediastinal and hilar regions show no mass or abnormal lymphadenopathy. No chest wall mass or axillary lymphadenopathy. No cardiomegaly or pericardial effusion. Liver shows a mild fatty infiltration pattern. No focal liver lesions identified. Spleen and pancreas show no suspicious findings. Cholecystectomy clips are present. No biliary tree dilatation. Renal function is symmetric. No hydronephrosis or suspicious mass. Two small low-density masses lowe r pole right kidney are unchanged from believed to be incidental cysts. No adrenal abnormalities. Sma ll subcentimeter cysts seen upper pole left kidney. No dilated bowel loops or focal bowel wall thickening. No acute GI findings seen. Moderate stool volu me seen in the colon. No significant diverticulosis or other active colon process. Disc and bony degenerative changes are present. No pathologic bone process identified. No significant vascular findings. IMPRESSION: An 11 millimeter new nodular focus is present in the left lower lobe anteriorly. This is new from 2017. If the left upper lobectomy was due to carcinoma, nodule is more concerning. Mass is somewhat amorph ous in shape but is probably amenable to PET-CT detection and evaluation. The left lower lobe finding is not likely the cause of any acute pain symptoms. If the patient has an y intervening CT studies of the chest since 2017 those could be used for comparison. No acute abdomen or pelvis finding. Nonacute findings detailed in the body of the report.
--- NOTE | 2018-07-30 14:57 | ER ---
Nurse's Notes [facility] Name: Toshia Barone Age: 63 yrs Sex: Female : 1955 Arrival Date: 07/30/2018 Time: 10:16 Bed 13 Private MD: Tonio Miller Diagnosis: Acute Chest Pain;Acute Dyspnea;Unstable Angina Presentation: 07/30 10:27 Presenting complaint: Patient states: midsternal chest pain radiating to back X 3 days, iw intermittent, also c/o increasing SOB over past 3 days, dry cough X 4 days, hx of CHF, called Dr. Cruz and was told to just come to ER, denies fever, c/o chills and nausea. Transition of care: patient was not received from another setting of care. Onset of symptoms was July 27, 2018. Risk Assessment: Do you want to hurt yourself or someone else? Patient reports no desire to harm self or others. Initial Sepsis Screen: Does the patient meet any 2 criteria? No. Patient's initial sepsis screen is negative. Does the patient have a suspected source of infection? No. Patient's initial sepsis screen is negative. Care prior to arrival: None. 10:27 Method Of Arrival: Ambulatory iw 10:27 Acuity: SHARON 3 iw Historical: - Allergies: 10:29 Reglan; iw 10:29 Ritalin; iw 10:59 methylphenidate HCl; ls4 10:59 PENICILLINS; ls4 - PMHx: 10:59 GERD; TIA; CHF; Hyperlipidemia; CVA; Hypothyroidism; fatty liver; B12 deficiency; ls4 Hypertension; Myocardial infarction; DVT; Kidney stones; COPD; Pancreatitis; - PSHx: 10:59 Lobectomy; Heart stents; right leg varicose vein; ; Hysterectomy; ls4 - Immunization history:: Adult Immunizations up to date. - Ebola Screening: : Patient negative for fever greater than or equal to 101.5 degrees Fahrenheit, and additional compatible Ebola Virus Disease symptoms Patient denies exposure to infectious person Patient denies travel to an Ebola-affected area in the 21 days before illness onset No symptoms or risks identified at this time. - Social history:: Smoking status: Patient/guardian denies using tobacco, never smoked. - Family history:: not pertinent. - Hospitalizations: : No recent hospitalization is reported. Screenin:32 Abuse screen: Denies threats or abuse. Nutritional screening: No deficits noted. ls4 Tuberculosis screening: No symptoms or risk factors identified. Fall Risk None identified. Assessment: 10:31 Also complains of no other symptoms. General: Appears in no apparent distress. Behavior ls4 is calm, cooperative. Pain: Complains of pain in mid-sternal area Pain does not radiate. Pain currently is 6 out of 10 on a pain scale. Pain began 2-3 days ago. Cardiovascular: Reports chest pain, since MORE THAN A FEW DAYS. Respiratory: No deficits noted. GI: No deficits noted. : No deficits noted. 12:30 Reassessment: Patient appears in no apparent distress at this time. Patient and/or ls4 family updated on plan of care and expected duration. Pain level reassessed. Patient is alert, oriented x 3, equal unlabored respirations, skin warm/dry/pink. 13:30 Reassessment: Patient appears in no apparent distress at this time. Patient and/or ls4 family updated on plan of care and expected duration. Pain level reassessed. Patient is alert, oriented x 3, equal unlabored respirations, skin warm/dry/pink. 14:30 Reassessment: Patient and/or family updated on plan of care and expected duration. Pain ls4 level reassessed. Patient is alert, oriented x 3, equal unlabored respirations, skin warm/dry/pink. 15:30 Reassessment: Patient and/or family updated on plan of care and expected duration. Pain ls4 level reassessed. Patient is alert, oriented x 3, equal unlabored respirations, skin warm/dry/pink. Vital Signs: 10:31 BP 152 / 78; Pulse 69; Resp 18 S; Pulse Ox 97% on R/A; Weight 76.66 kg; Height 5 ft. 5 iw in. (165.10 cm); Pain 6/10; 10:32 BP 152 / 78; Pulse 67; Resp 16; Temp 98.4(O); Pulse Ox 100% on R/A; Pain 6/10; ls4 12:17 BP 137 / 75; Pulse 68; Resp 16; Temp 98.4(O); Pulse Ox 100% on R/A; Pain 3/10; ls4 13:30 BP 136 / 70; Pulse 69; Resp 16; Temp 98.4; Pulse Ox 99% on R/A; Pain 3/10; ls4 14:30 BP 134 / 66; Pulse 67; Resp 16; Temp 98.4(O); Pulse Ox 99% on R/A; Pain 3/10; ls4 15:30 BP 142 / 78; Pulse 70; Resp 16; Temp 98.2(O); Pulse Ox 99% on R/A; Pain 3/10; ls4 10:31 Body Mass Index 28.12 (76.66 kg, 165.10 cm) iw ED Course: 10:16 Patient arrived in ED. ag5 10:16 Winston Kat DO is Private Physician. ag5 10:16 Tonio Miller DO is Private Physician. ag5 10:27 Mila Anaya, RN is Primary Nurse. ls4 10:28 Barak Luciano MD is Attending Physician. wa 10:29 Triage completed. iw 10:31 Arm band placed on. iw 10:33 Patient has correct armband on for positive identification. Placed in gown. Bed in low ls4 position. Side rails up X 1. packer fuser on. Pulse ox on. NIBP on. 10:33 No provider procedures requiring assistance completed. Patient maintains SpO2 ls4 saturation greater than 95% on room air. 10:59 Warm blanket given. Verbal reassurance given. ls4 10:59 Initial lab(s) drawn, by ED staff, sent to lab. ls4 11:15 Missed attempt(s): 22 gauge 24 gauge in right forearm. antecubital area. mh5 11:19 Initial lab(s) drawn, by ED staff, sent to lab. Inserted saline lock: 22 gauge in left ms wrist, using aseptic technique. Blood collected. 11:21 EKG done, by service tech/welder. reviewed by Barak Luciano MD. at1 11:51 XRAY Chest (1 view) In Process Unspecified. EDMS 13:06 CT completed. Patient tolerated procedure well. Patient moved to CT via wheelchair. sj Patient moved back from CT. 13:28 CT Chest, Abdomen, Pelvis - W/Contrast In Process Unspecified. EDMS 14:23 Diet: Patient given a regular meal tray. mh5 14:34 initiated a transfer with Tia at the [facility] transfer center to transfer the patient to [facility]. 14:[address] Jeffries with Dr. Luciano for patient transfer consultation.eb 14:[address] Moses from [facility] with Dr. Luciano for patient eb transfer consultation. 14:46 administrative approval given by Gwen Marshall [facility]/ patient is going to the emergency eb department/ Dr Moses has accepted the patient in transfer/ report to be called to [phone]. 15:54 Patient transferred, IV remains in place. intact. ls4 Administered Medications: 11:10 Drug: Aspirin Chewable Tablet 324 mg Route: PO; ls4 11:53 Follow up: Response: No adverse reaction ls4 11:10 Drug: Nitroglycerin 0.4 mg Route: Sublingual; ls4 11:15 Follow up: Response: No change in condition ls4 11:53 Drug: Zofran 4 mg Route: IVP; Site: left antecubital; ls4 12:11 Follow up: Response: No adverse reaction; Marked relief of symptoms ls4 11:53 Drug: fentaNYL (PF) 25 mcg Route: IVP; Site: left antecubital; ls4 12:11 Follow up: Response: No adverse reaction; Marked relief of symptoms ls4 15:30 Drug: Lovenox 70 mg Route: Sub-Q; Site: right lower abdomen; ls4 15:53 Follow up: Response: No adverse reaction ls4 Outcome: 14:56 ER care complete, transfer ordered by . fl 15:53 Transferred by ground EMS Note: [facility] ls4 15:53 Condition: stable 15:53 Demonstrated understanding of PT UNDERSTANDS TRANSFER AND COMPLETED TRANSFER REQUEST 15:55 Patient left the ED. ls4 Signatures: Dispatcher [employer] Elizabeth Jenkins Irene, RN Mindi Timmons ms, Amanda, senior officer EKG Tat1 Mindi Dalal 5 Barak Luciano MD MD wa Botello, Elizabeth eb Stewart, Lisa RN RN ls4 Valentin Buckley ag5 Corrections: (The following items were deleted from the chart) 10:59 10:29 Allergies: methylphenidate HCl; ls4 10:59 10:29 Allergies: PENICILLINS; ls4 10:59 10:29 PMHx: B12 deficiency; ls4 :59 10:29 PMHx: CHF; iw ls4 10:59 10:29 PMHx: COPD; iw ls4 10:29 PMHx: CVA; iw ls4 10:29 PMHx: DVT; iw ls4 10:29 PMHx: fatty liver; iw ls4 10:29 PMHx: GERD; iw ls4 10:29 PMHx: Hyperlipidemia; iw ls4 10:29 PMHx: Hypertension; iw ls4 10:29 PMHx: Hypothyroidism; iw ls4 10:29 PMHx: Kidney stones; iw ls4 10:29 PMHx: Myocardial infarction; iw ls4 10:29 PMHx: Pancreatitis; iw ls4 10:29 PMHx: TIA; iw ls4 10:31 PSHx: Hysterectomy; iw ls4 10:31 PSHx: Lobectomy; iw ls4 10:31 PSHx: Heart stents; iw ls4 10:31 PSHx: ; iw ls4 10:31 PSHx: right leg varicose vein; iw ls4
--- NOTE | 2018-07-30 14:57 | EDPHYS ---
Physician Documentation [facility] Name: Toshia Barone Age: 63 yrs Sex: Female : 1955 Arrival Date: 07/30/2018 Time: 10:16 Bed 13 Private MD: Tonio Miller ED Physician Barak Luciano HPI: 07/30 14:38 This 63 yrs old Female presents to ER via Ambulatory with complaints of Chest wa Pain, Shortness Of Breath. 14:38 The patient or guardian reports chest pain that is located primarily in the substernal wa area. Onset: 2 week(s) ago. The pain radiates to back. Associated signs and symptoms: Pertinent positives: shortness of breath, Pertinent negatives: abdominal pain, diaphoresis, dizziness, headache, lower extremity pain, lower extremity swelling, lightheadedness, nausea, palpitations. The chest pain is described as dull. Duration: The patient or guardian reports multiple episodes, that are intermittent, that wax and wane, worse with exertion. Modifying factors: The symptoms are alleviated by nothing. the symptoms are aggravated by activity, exertion. Severity of pain: At its worst the pain was moderate in the emergency department the pain is actually worse mildly. The patient has experienced similar episodes in the past, several times. The patient has been recently seen by a physician: her ocean export coordinator - Dr. Knapp. states she's scheduled for a heart cath in 2 days (Friday). Historical: - Allergies: 10:29 Reglan; iw 10:29 Ritalin; iw 10:59 methylphenidate HCl; ls4 10:59 PENICILLINS; ls4 - PMHx: 10:59 GERD; TIA; CHF; Hyperlipidemia; CVA; Hypothyroidism; fatty liver; B12 deficiency; ls4 Hypertension; Myocardial infarction; DVT; Kidney stones; COPD; Pancreatitis; - PSHx: 10:59 Lobectomy; Heart stents; right leg varicose vein; ; Hysterectomy; ls4 - Immunization history:: Adult Immunizations up to date. - Ebola Screening: : Patient negative for fever greater than or equal to 101.5 degrees Fahrenheit, and additional compatible Ebola Virus Disease symptoms Patient denies exposure to infectious person Patient denies travel to an Ebola-affected area in the 21 days before illness onset No symptoms or risks identified at this time. - Social history:: Smoking status: Patient/guardian denies using tobacco, never smoked. - Family history:: not pertinent. - Hospitalizations: : No recent hospitalization is reported. ROS: 14:48 Constitutional: Negative for fever, chills, and weight loss, Eyes: Negative for injury, wa pain, redness, and discharge, ENT: Negative for injury, pain, and discharge, Neck: Negative for injury, pain, and swelling, Abdomen/GI: Negative for abdominal pain, nausea, vomiting, diarrhea, and constipation, Back: Negative for injury and pain, : Negative for injury, bleeding, discharge, and swelling, MS/Extremity: Negative for injury and deformity, Skin: Negative for injury, rash, and discoloration, Neuro: Negative for headache, weakness, numbness, tingling, and seizure, Psych: Negative for depression, anxiety, suicide ideation, homicidal ideation, and hallucinations. 14:48 Cardiovascular: Positive for chest pain, Negative for edema, orthopnea, palpitations, paroxysmal nocturnal dyspnea. 14:48 Respiratory: Positive for shortness of breath, on exertion. Negative for cough, hemoptysis, orthopnea, sputum production. 14:48 All other systems are negative. Exam: 14:49 Constitutional: This is a well developed, well nourished patient who is awake, alert, wa and in no acute distress. Head/Face: Normocephalic, atraumatic. Eyes: Pupils equal round and reactive to light, extra-ocular motions intact. Lids and lashes normal. Conjunctiva and sclera are non-icteric and not injected. Cornea within normal limits. Periorbital areas with no swelling, redness, or edema. ENT: Nares patent. No nasal discharge, no septal abnormalities noted. Tympanic membranes are normal and external auditory canals are clear. Oropharynx with no redness, swelling, or masses, exudates, or evidence of obstruction, uvula midline. Mucous membranes moist. Neck: Trachea midline, no thyromegaly or masses palpated, and no cervical lymphadenopathy. Supple, full range of motion without nuchal rigidity, or vertebral point tenderness. No Meningismus. Chest/axilla: Normal chest wall appearance and motion. Nontender with no deformity. No lesions are appreciated. Cardiovascular: Regular rate and rhythm with a normal S1 and S2. No gallops, murmurs, or rubs. Normal PMI, no JVD. No pulse deficits. Abdomen/GI: Soft, non-tender, with normal bowel sounds. No distension or tympany. No guarding or rebound. No evidence of tenderness throughout. Back: No spinal tenderness. No costovertebral tenderness. Full range of motion. Skin: Warm, dry with normal turgor. Normal color with no rashes, no lesions, and no evidence of cellulitis. MS/ Extremity: Pulses equal, no cyanosis. Neurovascular intact. Full, normal range of motion. Neuro: Awake and alert, GCS 15, oriented to person, place, time, and situation. Cranial nerves II-XII grossly intact. Motor strength 5/5 in all extremities. Sensory grossly intact. Cerebellar exam normal. Normal gait. Psych: Awake, alert, with orientation to person, place and time. Behavior, mood, and affect are within normal limits. 14:49 Cardiovascular: Rate: normal, Rhythm: regular, Pulses: no pulse deficits are appreciated, Heart sounds: normal, Edema: is not appreciated, JVD: is not appreciated. 14:49 Respiratory: the patient does not display signs of respiratory distress, Respirations: normal, Breath sounds: are clear throughout, Respiratory rate: normal Vital Signs: 10:31 BP 152 / 78; Pulse 69; Resp 18 S; Pulse Ox 97% on R/A; Weight 76.66 kg; Height 5 ft. 5 iw in. (165.10 cm); Pain 6/10; 10:32 BP 152 / 78; Pulse 67; Resp 16; Temp 98.4(O); Pulse Ox 100% on R/A; Pain 6/10; ls4 12:17 BP 137 / 75; Pulse 68; Resp 16; Temp 98.4(O); Pulse Ox 100% on R/A; Pain 3/10; ls4 13:30 BP 136 / 70; Pulse 69; Resp 16; Temp 98.4; Pulse Ox 99% on R/A; Pain 3/10; ls4 14:30 BP 134 / 66; Pulse 67; Resp 16; Temp 98.4(O); Pulse Ox 99% on R/A; Pain 3/10; ls4 15:30 BP 142 / 78; Pulse 70; Resp 16; Temp 98.2(O); Pulse Ox 99% on R/A; Pain 3/10; ls4 10:31 Body Mass Index 28.12 (76.66 kg, 165.10 cm) iw MDM: 10:28 Patient medically screened. wa 14:50 Differential diagnosis: symptoms concerning for unstable angina. will r/o PE, PNA, wa acute CHF, pancreatitits. Data reviewed: vital signs, nurses notes, lab test result(s), EKG, radiologic studies. Test interpretation: by ED physician or midlevel provider: EKG: HR 67. nml axis. nml intervals. non-specific ST-T changes. 14:52 Test interpretation: by ED physician or midlevel provider: labs noted for nml troponin. wa BUN 20. CXR nml. CT chest: no PE. 11 mm new nodule in L lower lung. Special discussion: spoke with her ocean export coordinator, Dr. Carrera. he advised pt slated for cath in [address] [facility] as he does not come to this hsp. he advised to transfer to [facility] under his care. transfer effected. spoke with hospitalist Dr. Robin. Doc-doc done. . 07/30 10:44 Order name: Basic Metabolic Panel; Complete Time: 12:29 07/30 10:44 Order name: CBC with Diff 07/30 10:44 Order name: LFT's; Complete Time: 12:29 07/30 10:44 Order name: Magnesium; Complete Time: 12:29 07/30 10:44 Order name: NT PRO-BNP; Complete Time: 12:29 07/30 10:44 Order name: PT-INR; Complete Time: 11:47 07/30 10:44 Order name: Troponin (emerg Dept Use Only); Complete Time: 12:30 07/30 10:44 Order name: XRAY Chest (1 view); Complete Time: 12:30 07/30 10:45 Order name: Lipase; Complete Time: 12:29 07/30 12:36 Order name: CT Chest, Abdomen, Pelvis - W/Contrast; Complete Time: 13:43 07/30 10:44 Order name: EKG; Complete Time: 10:45 07/30 10:44 Order name: Cardiac monitoring; Complete Time: 16:12 07/30 10:44 Order name: EKG - Nurse/Tech; Complete Time: 16:12 07/30 10:44 Order name: IV Saline Lock; Complete Time: 16:12 wv 07/30 10:44 Order name: Labs collected and sent; Complete Time: 16:12 wv 07/30 10:44 Order name: O2 Per Protocol; Complete Time: 16:12 wv 07/30 10:44 Order name: O2 Sat Monitoring; Complete Time: 16:12 wv Administered Medications: 11:10 Drug: Aspirin Chewable Tablet 324 mg Route: PO; ls4 11:53 Follow up: Response: No adverse reaction ls4 11:10 Drug: Nitroglycerin 0.4 mg Route: Sublingual; ls4 11:15 Follow up: Response: No change in condition ls4 11:53 Drug: Zofran 4 mg Route: IVP; Site: left antecubital; ls4 12:11 Follow up: Response: No adverse reaction; Marked relief of symptoms ls4 11:53 Drug: fentaNYL (PF) 25 mcg Route: IVP; Site: left antecubital; ls4 12:11 Follow up: Response: No adverse reaction; Marked relief of symptoms ls4 15:30 Drug: Lovenox 70 mg Route: Sub-Q; Site: right lower abdomen; ls4 15:53 Follow up: Response: No adverse reaction ls4 Disposition: 14:56 Critical Care:. wv Disposition: 07/30/18 14:56 Transfer ordered to Other Acute Care Facility. Diagnosis are Acute Chest Pain, Acute Dyspnea, Unstable Angina. - Reason for transfer: Higher level of care. - Accepting physician is Dr. Robin. - Condition is Stable. - Problem is new. - Symptoms have improved. Critical care time excluding procedures: 14:56 Critical care time: Bedside Care: 10 minutes, Consultation: 15 minutes, Family wa Intervention: 5 minutes. Total time: 30 minutes Signatures: Dispatcher [employer] Edel Das RN RN Barak Luciano MD MD wa Stewart, Lisa, RN RN ls4 Corrections: (The following items were deleted from the chart) 10:59 10:29 Allergies: methylphenidate HCl; iw ls4 10:59 10:29 Allergies: PENICILLINS; iw ls4 10:59 10:29 PMHx: B12 deficiency; iw ls4 10:59 10:29 PMHx: CHF; iw ls4 10:59 10:29 PMHx: COPD; iw ls4 10:59 10:29 PMHx: CVA; iw ls4 10:59 10:29 PMHx: DVT; iw ls4 :59 10:29 PMHx: fatty liver; iw ls4 :59 10:29 PMHx: GERD; iw ls4 :59 10:29 PMHx: Hyperlipidemia; iw ls4 :59 10:29 PMHx: Hypertension; iw ls4 :59 10:29 PMHx: Hypothyroidism; iw ls4 :59 10:29 PMHx: Kidney stones; iw ls4 :59 10:29 PMHx: Myocardial infarction; iw ls4 :59 10:29 PMHx: Pancreatitis; iw ls4 :59 10:29 PMHx: TIA; iw ls4 :59 10:31 PSHx: Hysterectomy; iw ls4 :59 10:31 PSHx: Lobectomy; iw ls4 :59 10:31 PSHx: Heart stents; iw ls4 : 10:31 PSHx: ; iw ls4 : 10:31 PSHx: right leg varicose vein; iw ls4 15:55 14:56 07/30/2018 14:56 Transfer ordered to Other Acute Care Facility. Diagnosis is ls4 Acute Chest Pain; Acute Dyspnea; Unstable Angina. Reason for transfer: Higher level of care. Accepting physician is Dr. Robin. Condition is Stable. Problem is new. Symptoms have improved. wa
[2018-07-30] MEDS ORDERED: ENOXAPARIN 80 MG/0.8 ML SQ ONE (15:35)
[2018-07-30 16:03] VITALS: TEMP 98.4; O2SAT 100
[2018-07-30 16:05] VITALS: BP 137/75
== END 2018-07-30 15:55 ==
LOC: ER 10:14
DX: I20.0 Unstable angina (principal); R07.9 Chest pain, unspecified; I10 Essential (primary) hypertension; I25.2 Old myocardial infarction; Z88.0 Allergy status to penicillin; Z88.8 Allergy status to other drugs, medicaments and biological substances; Z95.818 Presence of other cardiac implants and grafts
CPT/HCPCS: 36415; 71045; 71260; 74177; 80048; 80076; 83690; 83735; 83880; 84484; 85025; 85610; 93005; 96372; 96374; 96375; 99285; J1650; J2405; J3010; Q9967

== ENCOUNTER 2018-12-31 11:20 | Emergency (ER) | payer OTHER ==
--- OUTSIDE RECORDS SUMMARY | 2018-12-31 12:12 | XMS REPORT ---
[...] Atherosclerosis of coronary artery I25.10 Active of [place] heart Problem Simple renal cyst N28.1 Active [...]
--- OUTSIDE RECORDS SUMMARY | 2018-12-31 12:12 | XMS REPORT ---
:1955 Author Organization [employer] Care Team Providers Name Role Phone Sarahy Millerh Provider Role Unavailable Allergies, Adverse Reactions, Alerts Substance Reaction Event Type Metoclopramide HCl Info Not Available Drug Allergy Amoxicillin Info Not Available Drug Allergy Problems Problem Type Condition Code Onset Dates Condition Status Assessment Atherosclerosis of coronary artery I25.10 Active of [place] heart Assessment Stented coronary artery Z95.5 Active [...] Atherosclerosis of coronary artery I25.10 Active of [place] heart Problem Simple renal cyst N28.1 Active [...] End Status Dosage System Date Date Atenolol [facility] 60167741524 100 MG PO Once Active TAKE 1 daily TABLET BY MOUTH EVERY DAY Aspirin [facility] 24057696303 81 MG Active TAKE 1 TABLET BY MOUTH EVERY DAY Synthroid [facility] 17418690764 50 MCG Orally Active 1 tablet Once a day on an empty stomach in the morning Loratadine [facility] 03290994269 10 MG Orally Active 1 tablet Once a day ProAir HFA [facility] 95333516359 108 (90 Base) Active 2 puffs as MCG/ACT needed Inhalation every 6 hrs Lipitor [facility] 75957865215 40 MG Orally Active 1 tablet Once a day Nexium [facility] 94838441354 40 MG Active TAKE ONE CAPSULE BY MOUTH EVERY DAY Nexium [facility] 17152641387 40 MG Active TAKE ONE CAPSULE BY MOUTH EVERY DAY Aspirin [facility] 53066378278 81 MG Active TAKE 1 TABLET BY MOUTH EVERY DAY Vitamin B12 [facility] 90414994398 1000 MCG Orally Active 1 tablet Once a day Nasonex [facility] 75278159090 50 MCG/ACT Active 2 sprays Nasally Once a in each day nostril Clopidogrel [facility] 54160732360 75 MG Orally Active 1 tablet Bisulfate Once a day Trelegy Ellipta [facility] 97139345673 100-62.5-25 Active 1 puff MCG/INH Inhalation Once a day Promethazine HCl [facility] 95417373153 25 MG/ML Active 1 ml as Injection every needed 6 hrs Venlafaxine HCl [facility] 38622867797 75 MG Active TAKE ONE ER CAPSULE BY MOUTH EVERY DAY Ultram [facility] 78703317049 50 MG Orally Active 1 tablet every 6 hrs as needed Furosemide [facility] 13188216020 20 MG Orally Active 1 tablet Once a day Venlafaxine HCl [facility] 77659893861 75 MG Active TAKE ONE ER CAPSULE BY MOUTH EVERY DAY Results No Known Results Summary Purpose [employer]Works Submission
--- OUTSIDE RECORDS SUMMARY | 2018-12-31 12:12 | XMS REPORT ---
[...] Atherosclerosis of coronary artery I25.10 Active of [place] heart Problem Simple renal cyst N28.1 Active [...]
--- OUTSIDE RECORDS SUMMARY | 2018-12-31 12:12 | XMS REPORT ---
[...] Atherosclerosis of coronary artery I25.10 Active of [place] heart Assessment Chronic obstructive pulmonary J44.9 Active [...] Atherosclerosis of coronary artery I25.10 Active of [place] heart Problem Simple renal cyst N28.1 Active [...] End Status Dosage System Date Date Aspirin [facility] 77394361788 81 MG Active TAKE 1 TABLET BY MOUTH EVERY DAY Lipitor [facility] 50979026580 40 MG Orally Active 1 tablet Once a day ProAir HFA [facility] 42563063249 108 (90 Base) Active 2 puffs MCG/ACT as needed Inhalation every 6 hrs Aspirin [facility] 84396643816 81 MG Active TAKE 1 TABLET BY MOUTH EVERY DAY Venlafaxine HCl [facility] 58930105695 75 MG Active TAKE ONE ER CAPSULE BY MOUTH EVERY DAY Venlafaxine HCl [facility] 54214803849 75 MG Active TAKE ONE ER CAPSULE BY MOUTH EVERY DAY Loratadine [facility] 28672771982 10 MG Orally Active 1 tablet Once a day Atenolol [facility] 30586047241 100 MG PO Once Active TAKE 1 daily TABLET BY MOUTH EVERY DAY Nasonex [facility] 15582556063 50 MCG/ACT Active 2 sprays Nasally Once a in each day nostril Promethazine HCl [facility] 18548457227 25 MG/ML Active 1 ml as Injection every needed 6 hrs Ultram [facility] 65126385137 50 MG Orally Active 1 tablet every 6 hrs as needed Trelegy Ellipta [facility] 33692498347 100-62.5-25 Active 1 puff MCG/INH Inhalation Once a day Furosemide [facility] 34495316347 20 MG Orally Active 1 tablet Once a day Nexium [facility] 14824839383 40 MG Active TAKE ONE CAPSULE BY MOUTH EVERY DAY Nexium [facility] 64236563893 40 MG Active TAKE ONE CAPSULE BY MOUTH EVERY DAY Vitamin B12 [facility] 48633062476 1000 MCG Orally Active 1 tablet Once a day Nortriptyline [facility] 64608978463 25 MG Orally Inactive 1 capsule HCl Once a day Synthroid [facility] 07997620513 50 MCG Orally Active 1 tablet Once a day on an empty stomach in the morning Clopidogrel [facility] 36207849369 75 MG Orally Active 1 tablet Bisulfate Once a day Results No Known Results Summary Purpose [employer]ClinicalWorks Submission
--- OUTSIDE RECORDS SUMMARY | 2018-12-31 12:12 | XMS REPORT ---
:1955 Author Organization eClinicalWorks Care Team Providers Name Role Phone Tonio Miller Provider Role Unavailable Allergies No Known Allergies Problems Problem Type Condition Code Onset Dates Condition Status Assessment Stented coronary artery Z95.5 Active Assessment GERD (gastroesophageal reflux K21.9 Active disease) Assessment Hypertension I10 Active Assessment Atherosclerosis of coronary artery I25.10 Active of [place] heart Assessment Chronic obstructive pulmonary J44.9 Active [...] Atherosclerosis of coronary artery I25.10 Active of [place] [facility] Problem Simple renal cyst N28.1 Active [...] End Status Dosage System Date Date Ultram [facility] 87183933953 50 MG Orally Active 1 tablet every 6 hrs as needed Synthroid [facility] 52071969577 50 MCG Orally Active 1 tablet Once a day on an empty stomach in the morning Nasonex [facility] 89194988872 50 MCG/ACT Active 2 sprays Nasally Once a in each day nostril Nystatin [facility] [id number] [id number] U/ML Inactive not Mouth/Throat defined Gabapentin [facility] 32662494692 100 MG Orally Inactive 1 capsule Three times a day Nortriptyline [facility] 97908346962 25 MG Orally Inactive 1 capsule HCl Once a day Lorazepam [facility] 64104585335 0.5 MG Orally Inactive 1 tablet every 6 hrs as needed Promethazine HCl [facility] 64764295962 25 MG/ML Active 1 ml as Injection every needed 6 hrs Aspirin [facility] 09028592610 81 MG Active TAKE 1 TABLET BY MOUTH EVERY DAY Venlafaxine HCl [facility] 98950612673 75 MG Active TAKE ONE ER CAPSULE BY MOUTH EVERY DAY Clopidogrel [facility] 77680465712 75 MG Orally Active 1 tablet Bisulfate Once a day Vitamin B12 [facility] 83768665181 1000 MCG Orally Active 1 tablet Once a day Furosemide [facility] 57861626718 20 MG Orally Active 1 tablet Once a day Atenolol [facility] 36891503065 100 MG PO Once Active TAKE 1 daily TABLET BY MOUTH EVERY DAY Trelegy Ellipta [facility] 79642071462 100-62.5-25 Active 1 puff MCG/INH Inhalation Once a day Nexium [facility] 86951430228 40 MG Active TAKE ONE CAPSULE BY MOUTH EVERY DAY Loratadine [facility] 53697388536 10 MG Orally Active 1 tablet Once a day Lipitor [facility] 18694840950 40 MG Orally Active 1 tablet Once a day ProAir HFA [facility] 87556482354 108 (90 Base) Active 2 puffs MCG/ACT as needed Inhalation every 6 hrs Results No Known Results Summary Purpose eClinicalWorks Submission
--- OUTSIDE RECORDS SUMMARY | 2018-12-31 12:12 | XMS REPORT ---
:1955 Author Organization eClinicalWorks Care Team Providers Name Role Phone Sarahy Millerh Provider Role Unavailable Allergies, Adverse Reactions, Alerts Substance Reaction Event Type Metoclopramide HCl Info Not Available Drug Allergy Amoxicillin Info Not Available Drug Allergy Problems Problem Type Condition Code Onset Dates Condition Status Assessment Upper respiratory tract infection, J06.9 Active unspecified type Assessment Acute non-recurrent maxillary J01.00 Active sinusitis Problem Hyperlipidemia, mixed E78.2 Active Problem Hypertension I10 Active Problem History of transient ischemic attack [...] Atherosclerosis of coronary artery I25.10 Active of [place] [facility] Problem Simple renal cyst N28.1 Active [...] Start End Status Dosage System Date Date Azithromycin ND 24171785032 250 MG Orally Jul 16Jun Active 2 tablets on Once a day 2018, the first 2018 day, then 1 tablet daily for 4 days Simvastatin ND 60811779241 40 MG Orally May 27, Active 1 tablet in Once a day 2018 the evening ProAir HFA [facility] 23004417281 108 (90 Base) Active 2 puffs as MCG/ACT needed Inhalation every 6 hrs Trelegy Ellipta [facility] 35296169375 100-62.5-25 Active 1 puff MCG/INH Inhalation Once a day Venlafaxine HCl [facility] 72767988727 75 MG Active TAKE ONE ER CAPSULE BY MOUTH EVERY DAY Loratadine [facility] 33615233963 10 MG Orally Active 1 tablet Once a day Synthroid ND 37202642378 50 MCG Orally Active 1 tablet on Once a day an empty stomach in the morning Venlafaxine HCl [facility] 20720820350 75 MG Active TAKE ONE ER CAPSULE BY MOUTH EVERY DAY Clopidogrel [facility] 65592699976 75 MG Orally Active 1 tablet Bisulfate Once a day Hydrocortisone ND 47395000184 1 % Externally May 13, Active 1 application Acetate Twice a day 2017 to affected area Aspirin ND 12725603531 81 MG Active TAKE 1 TABLET BY MOUTH EVERY DAY Promethazine HCl [facility] 79986971641 25 MG/ML Active 1 ml as Injection needed every 6 hrs Nasonex [facility] 96490077182 50 MCG/ACT Active 2 sprays in Nasally Once a each nostril day Nexium [facility] 98978393894 40 MG Active TAKE ONE CAPSULE BY MOUTH EVERY DAY Atenolol ND 17452816448 100 MG PO Once Active TAKE 1 TABLET daily BY MOUTH EVERY DAY Ultram [facility] 82936028824 50 MG Orally Active 1 tablet as every 6 hrs needed Triamcinolone ND 51963926564 0.1 % May 19, Active 1 application Acetonide Externally 2017 to affected Twice a day area Furosemide ND 55627188084 20 MG Orally Active 1 tablet Once a day Aspirin [facility] 56177430233 81 MG Active TAKE 1 TABLET BY MOUTH EVERY DAY Vitamin B12 [facility] 24924765948 1000 MCG Active 1 tablet Orally Once a day Results Name Result Date Reference Range Unit Abnormality Flag FLU TEST ----A Neg [id number] ----B Neg [id number] Summary Purpose eClinicalWorks Submission
--- OUTSIDE RECORDS SUMMARY | 2018-12-31 12:13 | XMS REPORT ---
:1955 Author [facility] Address [address] [place] [address] Care Team Providers Name Role Phone Unavailable Unavailable Unavailable Payers Payer Name Policy Type Policy Number Effective Date Expiration Date Problems This patient has no known problems. Allergies, Adverse Reactions, Alerts Allergy Name Allergy Status Severity Reaction(s) Onset Inactive Treating Comments Type Date Date Clinician Penicillins DA Active MO 2016-06 00:00: 00 metoclopramide DA Active MO 2016-06 00:00: 00 Medications This patient has no known medications. Results Test Description Test Time Test Comments Text Results Atomic Results Result Comments LIPID PROFILE (CORONARY RISK) 2018-08-01 08:02:00 Test Item Value Reference Range Comments TRIGLYCERIDES (test code=TRIG) 194 MG/DL TRIGLYCERIDES REFERENCE RANGE: Normal: <150 mg/dLBorderline High: 150-199 mg/dLHigh: 200-499 mg/dLVery High: >=500 mg/dL CHOLESTEROL (test code=CHOL) 206 MG/DL <200 HDL CHOLESTEROL (test code=HDL) 59 MG/DL 40-59 LIPOPROTEIN LDL (test code=LDL) 116 MG/DL 0-99 OPTIMAL.........<100 mg/dLNEAR OPTIMAL/ABOVE OPTIMAL.........100-129 mg/dL BORDERLINE HIGH.........130-159 mg/dL HIGH.........160-189 mg/dL VERY HIGH.........>/=190 mg/dL [id number] 08:02:00 Test Item Value Reference Range Comments MAGNESIUM (test code=MAG) 2.0 MG/DL 1.6-2.3 LIPID PROFILE (CORONARY RISK)2018-08-01 07:51:00 Test Item Value Reference Range Comments TRIGLYCERIDES (test code=TRIG) 194 MG/DL TRIGLYCERIDES REFERENCE RANGE:Normal: <150 mg/dLBorderline High: 150-199 mg/dLHigh: 200-499 mg/dLVery High: >=500 mg/dL CHOLESTEROL (test code=CHOL) 206 MG/DL <200 HDL CHOLESTEROL (test 59 MG/DL 40-59 code=HDL) LIPOPROTEIN LDL (test MG/DL 0-99 code=LDL) [id number] 07:51:00 Test Item Value Reference Range Comments MAGNESIUM (test code=MAG) 2.0 MG/DL 1.6-2.3 PROTHROMBIN [id number] 07:37:00 Test Item Value Reference Range Comments PROTHROMBIN TIME PATIENT (test 10.2 SECONDS 9.6-11.6 code=PTP) INTERNATIONAL NORMAL RATIO 1.0 0.8-1.1 The INR is to be used only (test code=INR) for monitoring oral anticoagulanttherapy. INDICATION INR VALUE 1. Prophylaxis, deep venous thrombosis, including high risk surgery. 2.0 - 3.0 2. Prophylaxis, deep venous thrombosis, hip surgery, treatment for deep venous thrombosis or pulmonary prevention of systemic embolism in patients with valvular heart disease, atrial fibrillation, tissue heart valve, or acute myocardial infarction. 2.0 - 3.0 3. Mechanical prosthesis heart valves, recurrent systemic embolism. 3.0 - 4.5 PTT [id number] 07:37:00 Test Item Value Reference Range Comments PTT ACTIVATED (test code=APTT) 26.7 SECONDS 22.0-33.0 [id number] 01:26:00 Test Item Value Reference Range Comments TROPONIN-I (test code=TROPI) < 0.012 NG/ML 0.012-0.033 HEPATIC FUNCTION [id number] 18:44:00 Test Item Value Reference Range Comments TOTAL PROTEIN (test code=PROT) 7.2 G/DL 6.3-8.2 ALBUMIN (test code=ALB) 3.6 G/DL 3.5-5.0 BILIRUBIN TOTAL (test code=BILT) 0.9 MG/DL 0.2-1.3 BILIRUBIN DIRECT (test code=BILD) 0.0 MG/DL 0.0-0.3 SGOT/AST (test code=AST) 27 UNITS/L 14-36 SGPT/ALT (test code=ALT) 19 UNITS/L 9-52 ALKALINE PHOSPHATASE (test code=ALKP) 77 UNITS/L 38-126 BASIC METABOLIC [id number] 18:15:00 Test Item Value Reference Range Comments SODIUM (test code=NA) 140 MMOL/L 137-145 POTASSIUM (test code=K) 4.0 MMOL/L 3.5-5.1 CHLORIDE (test code=CL) 110 MMOL/L 98-107 CARBON DIOXIDE (test code=CO2) 23 MMOL/L 22-30 GLUCOSE (test code=GLU) 105 MG/DL 74-106 BLOOD UREA NITROGEN (test 20 MG/DL 717 code=BUN) GLOMERULAR FILTRATION RATE > 60 Reporting units: ml/min/1.73 (test code=GFR) m2 (Modified MDRD Formula)Reference Range: > or=60 ml/min/1.73 m2 CREATININE (test code=CREAT) 0.60 MG/DL 0.52-1.04 CALCIUM (test code=CA) 8.9 MG/DL 8.4-10.2 [id number] 18:15:00 Test Item Value Reference Range Comments TROPONIN-I (test code=TROPI) < 0.012 NG/ML 0.012-0.033 BASIC METABOLIC [id number] 18:03:00 Test Item Value Reference Range Comments SODIUM (test code=NA) 140 MMOL/L 137-145 POTASSIUM (test code=K) 4.0 MMOL/L 3.5-5.1 CHLORIDE (test code=CL) 110 MMOL/L 98-107 CARBON DIOXIDE (test code=CO2) 23 MMOL/L 22-30 GLUCOSE (test code=GLU) 105 MG/DL 74-106 BLOOD UREA NITROGEN (test 20 MG/DL 7-17 code=BUN) GLOMERULAR FILTRATION RATE > 60 Reporting units: ml/min/1.73 (test code=GFR) m2 (Modified MDRD Formula)Reference Range: > or=60 ml/min/1.73 m2 CREATININE (test code=CREAT) 0.60 MG/DL 0.52-1.04 CALCIUM (test code=CA) 8.9 MG/DL 8.4-10.2 [id number] 18:03:00 Test Item Value Reference Range Comments TROPONIN-I (test code=TROPI) NG/ML 0.0-0.045 CBC W/O [id number] 17:39:00 Test Item Value Reference Range Comments WHITE BLOOD CELL (test code=WBC) 8.3 K/MM3 3.8-9.8 RED BLOOD CELL (test code=RBC) 3.85 M/MM3 3.58-4.97 HEMOGLOBIN (test code=HGB) 12.2 G/DL 11.2-14.9 HEMATOCRIT (test code=HCT) 37.5 % 33.2-43.5 MEAN CELL VOLUME (test code=MCV) 97 fL 80.7-99.1 MEAN CELL HGB (test code=MCH) 31.7 pg 27.0-34.1 MEAN CELL HGB CONCETRATION (test code=MCHC) 32.5 % 32.2-35.7 RED CELL DISTRIBUTION WIDTH (test code=RDW) 13.8 % 12.1-15.2 PLATELET COUNT (test code=PLT) 155 K/MM3 129-368 IMMATURE GRANULOCYTE % (test code=IG%) 0.1 % 0.0-2.0 NEUTROPHIL # (test code=NT#) 5.0 K/mm3 2.0-7.6 IMMATURE GRANULOCYTE # (test code=IG#) 0.01 x10 3/uL 0-0.03 LYMPHOCYTE # (test code=LY#) 2.9 K/mm3 1.0-3.8 MONOCYTE # (test code=MO#) 0.37 K/mm3 0.1-0.8 EOSINOPHIL # (test code=EO#) 0.1 K/mm3 0.0-0.2 BASOPHIL # (test code=BA#) 0.02 K/mm3 0.0-0.2 NUCLEATED RBC # (test code=NRBC#) 0.0 K/mm3 0.0-0.1
--- OUTSIDE RECORDS SUMMARY | 2018-12-31 12:13 | XMS REPORT ---
:1955 Author Organization eClinicalWorks Care Team Providers Name Role Phone Paul Tonio Provider Role Unavailable Allergies No Known Allergies Problems Problem Type Condition Code Onset Dates Condition Status Problem Stented coronary artery Z95.5 Active Problem Kidney stone N20.0 Active Problem History of transient ischemic attack Z86.73 Active Problem Postsurgical menopause N95.8 Active Problem Obstructive sleep apnea G47.33 Active Problem Adrenal hypofunction E27.49 Active Problem Atherosclerosis of coronary artery I25.10 Active of [place] heart Problem History of cerebrovascular accident Z86.73 Active Problem Chronic obstructive pulmonary J44.9 Active disease, unspecified COPD type Problem Hypothyroidism, unspecified type E03.9 Active Problem Peripheral neuropathy G62.9 Active Problem Chronic pancreatitis K86.1 Active Problem Other chronic pain G89.29 Active Problem Depression with anxiety F41.8 Active Problem Vitamin B12 deficiency anemia D51.9 Active Problem Degeneration, intervertebral disc, 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 Problem Stress disorder, acute F43.0 Active Problem Simple renal cyst N28.1 Active Problem GERD (gastroesophageal reflux K21.9 Active disease) Problem Dizziness R42 Active Problem Insomnia G47.00 Active Problem Fatty liver K76.0 Active Problem Varicose veins I86.8 Active Problem Degenerative joint disease M19.90 Active Problem Hypertension I10 Active Problem Hyperlipidemia, mixed E78.2 Active Medications No Known Medications Results No Known Results Summary Purpose eClinicalWorks Submission
--- OUTSIDE RECORDS SUMMARY | 2018-12-31 12:13 | XMS REPORT ---
:1955 Author Organization eClinicalWorks Care Team Providers Name Role Phone Tonio Miller Provider Role Unavailable Allergies, Adverse Reactions, Alerts Substance Reaction Event Type Metoclopramide HCl Info Not Available Drug Allergy Amoxicillin Info Not Available Drug Allergy Problems Problem Type Condition Code Onset Dates Condition Status Assessment Atherosclerosis of coronary artery I25.10 Active of [place] heart Assessment Stented coronary artery Z95.5 Active Assessment Chronic obstructive pulmonary J44.9 Active disease, unspecified COPD type Assessment Hypertension I10 Active Assessment Hyperlipidemia, mixed E78.2 Active Assessment Depression with anxiety F41.8 Active Assessment Hypothyroidism, unspecified type E03.9 Active Problem Stented coronary artery Z95.5 Active Problem Kidney stone N20.0 Active Problem History of transient ischemic attack Z86.73 Active Problem Postsurgical menopause N95.8 Active Problem Obstructive sleep apnea G47.33 Active Problem Adrenal hypofunction E27.49 Active Problem Atherosclerosis of coronary artery I25.10 Active of [place] heart Problem History of cerebrovascular accident Z86.73 [...] Active Problem Simple renal cyst N28.1 Active Assessment Low back pain M54.5 Active Problem GERD (gastroesophageal reflux K21.9 Active disease) Assessment GERD (gastroesophageal reflux K21.9 Active disease) Problem Dizziness R42 Active Assessment Cervicalgia M54.2 Active Problem Insomnia G47.00 Active Assessment Other chronic pain G89.29 Active Problem Fatty liver K76.0 Active Problem Varicose veins I86.8 Active Problem Degenerative joint disease M19.90 Active Problem Hypertension I10 Active Problem Hyperlipidemia, mixed E78.2 Active Medications Medication Code Code Instructions Start End Status Dosage System Date Date Nexium NDC 09746885366 40 MG Active TAKE ONE CAPSULE BY MOUTH EVERY DAY Ultram [facility] 57729945609 50 MG Orally August Inactive 1 tablet as every 6 hrs 05, needed 2018 Venlafaxine HCl ND 84184778363 75 MG Active TAKE ONE ER CAPSULE BY MOUTH EVERY DAY Synthroid ND 88611865548 50 MCG Orally Active 1 tablet on Once a day an empty stomach in the morning Loratadine [facility] 50229107900 10 MG Orally Active 1 tablet Once a day Triamcinolone [facility] 18996929709 0.1 % May 19, Active 1 Acetonide Externally 2017 application Twice a day to affected area Trelegy Ellipta [facility] 35221435531 100-62.5-25 Active 1 puff MCG/INH Inhalation Once a day Atenolol ND 18107273803 100 MG PO Once Active TAKE 1 daily TABLET BY MOUTH EVERY DAY Hydrocodone-Acet [facility] 97953351580 5-325 MG Active 1 tablet as aminophen Orally every 6 needed hrs Hydrocortisone [facility] 95749175644 1 % Externally May 13, Active 1 Acetate Twice a day 2017 application to affected area Promethazine HCl [facility] 35294744115 25 MG/ML Active 1 ml as Injection needed every 6 hrs Aspirin ND 40336608099 81 MG Active TAKE 1 TABLET BY MOUTH EVERY DAY Atenolol ND 31038383118 100 MG PO Once Active TAKE 1 daily TABLET BY MOUTH EVERY DAY ProAir HFA [facility] 83395963321 108 (90 Base) Active 2 puffs as MCG/ACT needed Inhalation every 6 hrs Clopidogrel ND 82169191151 75 MG Orally Active 1 tablet Bisulfate Once a day Simvastatin ND 57294667649 40 MG Orally Active 1 tablet in Once a day the evening Aspirin ND 12881351972 81 MG Active TAKE 1 TABLET BY MOUTH EVERY DAY Nexium [facility] 53350699526 40 MG Active TAKE ONE CAPSULE BY MOUTH EVERY DAY Furosemide ND 48746892073 20 MG Orally Active 1 tablet Once a day Nasonex ND 50636306826 50 MCG/ACT Active 2 sprays in Nasally Once a each nostril day Vitamin B12 [facility] 23167502952 1000 MCG Active 1 tablet Orally Once a day Venlafaxine HCl [facility] 54630587184 75 MG Active TAKE ONE ER CAPSULE BY MOUTH EVERY DAY Results No Known Results Summary Purpose eClinicalWorks Submission
--- OUTSIDE RECORDS SUMMARY | 2018-12-31 12:13 | XMS REPORT ---
[...] Atherosclerosis of coronary artery I25.10 Active of [place] heart Problem History of cerebrovascular accident Z86.73 [...] Medications Medication Code Code Instructions Start End Date Status Dosage System Date Macrobid [facility] 66107736762 100 MG Orally September 10September 15, Active 1 capsule every 12 hrs 2018 2018 with food Results No Known Results Summary Purpose eClinicalWorks Submission
--- OUTSIDE RECORDS SUMMARY | 2018-12-31 12:13 | XMS REPORT ---
:1955 Author Organization eClinicalWorks Care Team Providers Name Role Phone Tonio Miller Provider Role Unavailable Allergies No Known Allergies Problems Problem Type Condition Code Onset Dates Condition Status Problem Hyperlipidemia, mixed E78.2 Active Problem Hypertension [...] Atherosclerosis of coronary artery I25.10 Active of [place] heart Problem Simple renal cyst N28.1 Active [...]
--- OUTSIDE RECORDS SUMMARY | 2018-12-31 12:13 | XMS REPORT ---
[...] Atherosclerosis of coronary artery I25.10 Active of [place] heart Problem History of cerebrovascular accident Z86.73 [...] Start End Date Status Dosage System Date Nystatin [facility]NOTE 2] [id number] 545876 UNIT/ML September 14 Active 4 ml Mouth/Throat 2019 Four times a day Bactrim DS ND 77111298028 800-160 MG September 14September Active 1 tablet Orally Twice a 2019 2018 day Macrobid [facility][NOTE 2] 46782526436 100 MG Orally September 10August Inactive 1 capsule every 12 hrs 2018 with food Results No Known Results Summary Purpose eClinicalWorks Submission
--- OUTSIDE RECORDS SUMMARY | 2018-12-31 12:13 | XMS REPORT ---
[...] Atherosclerosis of coronary artery I25.10 Active of [place] heart Problem History of cerebrovascular accident Z86.73 [...]
--- OUTSIDE RECORDS SUMMARY | 2018-12-31 12:14 | XMS REPORT ---
[...] Atherosclerosis of coronary artery I25.10 Active of [place] heart Problem History of cerebrovascular accident Z86.73 [...]
--- OUTSIDE RECORDS SUMMARY | 2018-12-31 12:14 | XMS REPORT ---
:1955 Author Organization eClinicalWorks Care Team Providers Name Role Phone Sarahy Millerh Provider Role Unavailable Allergies, Adverse Reactions, Alerts Substance Reaction Event Type Metoclopramide HCl Info Not Available Drug Allergy Amoxicillin Info Not Available Drug Allergy Problems Problem Type Condition Code Onset Dates Condition Status Assessment Varicose veins of right lower I83.91 Active extremity, unspecified whether complicated Assessment Right leg pain M79.604 Active Problem Stented coronary artery Z95.5 Active Problem Kidney stone N20.0 Active Problem History of transient ischemic Z86.73 Active attack Problem Postsurgical menopause N95.8 Active Problem Obstructive sleep apnea G47.33 Active Problem Adrenal hypofunction E27.49 Active Problem Atherosclerosis of coronary artery I25.10 Active of [place] heart Problem History of cerebrovascular accident Z86.73 [...] Start End Status Dosage System Date Date Hydrocortisone [facility] 59841266532 1 % Externally May 13, Active 1 application Acetate Twice a day 2017 to affected area Trelegy Ellipta [facility] 69918206810 100-62.5-25 Active 1 puff MCG/INH Inhalation Once a day Nasonex ND 58400636197 50 MCG/ACT Active 2 sprays in Nasally Once a each nostril day Aspirin ND 52904943193 81 MG Active TAKE 1 TABLET BY MOUTH EVERY DAY Aspirin [facility] 53692253031 81 MG Active TAKE 1 TABLET BY MOUTH EVERY DAY Atenolol ND 79108142392 100 MG PO Once Active TAKE 1 TABLET daily BY MOUTH EVERY DAY ProAir HFA [facility] 50698719643 108 (90 Base) Active 2 puffs as MCG/ACT needed Inhalation every 6 hrs Clopidogrel [facility] 94770352186 75 MG Orally Active 1 tablet Bisulfate Once a day Hydrocodone-Aceta [facility] 77273638169 5-325 MG Active 1 tablet as minophen Orally every 6 needed hrs Furosemide ND 10001144204 20 MG Orally Active 1 tablet Once a day Simvastatin [facility] 10902923118 40 MG Orally Active 1 tablet in Once a day the evening Vitamin B12 [facility] 49041739203 1000 MCG Active 1 tablet Orally Once a day Nystatin [facility] 72049336684 437123 UNIT/ML August Active 4 ml Mouth/Throat 25, Four times a 2018 day Synthroid [facility] 61543072605 50 MCG Orally Active 1 tablet on Once a day an empty stomach in the morning Triamcinolone [facility] 36465259075 0.1 % May 19, Active 1 application Acetonide Externally 2017 to affected Twice a day area Nexium [facility] 62931176633 40 MG Active TAKE ONE CAPSULE BY MOUTH EVERY DAY Atenolol ND 32052655123 100 MG PO Once Active TAKE 1 TABLET daily BY MOUTH EVERY DAY Loratadine [facility] 50910784923 10 MG Orally Active 1 tablet Once a day Promethazine HCl [facility] 37409127562 25 MG/ML Active 1 ml as Injection needed every 6 hrs Venlafaxine HCl [facility] 40432718701 75 MG Active TAKE ONE ER CAPSULE BY MOUTH EVERY DAY Results No Known Results Summary Purpose eClinicalWorks Submission
--- OUTSIDE RECORDS SUMMARY | 2018-12-31 12:14 | XMS REPORT ---
:1955 Author Organization e[employer]Works Care Team Providers Name Role Phone Tonio Miller Provider Role Unavailable Allergies, Adverse Reactions, Alerts Substance Reaction Event Type Metoclopramide HCl Info Not Available Drug Allergy Amoxicillin Info Not Available Drug Allergy Problems Problem Type Condition Code Onset Dates Condition Status Assessment Hyperlipidemia, mixed E78.2 Active Assessment Chronic obstructive pulmonary J44.9 Active disease, unspecified COPD type Assessment Hypothyroidism, unspecified type E03.9 Active Assessment Depression with anxiety F41.8 Active Assessment Dysuria R30.0 Active Assessment Acute cystitis without hematuria N30.00 Active Assessment Hypertension I10 Active Problem Stented coronary artery Z95.5 Active Problem Kidney stone N20.0 Active Problem History of transient ischemic attack Z86.73 Active Problem Postsurgical menopause N95.8 Active Problem Obstructive sleep apnea G47.33 Active Problem Adrenal hypofunction E27.49 Active Problem Atherosclerosis of coronary artery I25.10 Active of [place] [facility] Problem History of cerebrovascular accident Z86.73 [...] Problem Simple renal cyst N28.1 Active Assessment Stented coronary artery Z95.5 Active Problem GERD (gastroesophageal reflux K21.9 Active disease) Assessment Atherosclerosis of coronary artery I25.10 Active of [place] [facility] Problem Dizziness R42 Active Assessment Low back pain M54.5 Active Problem Insomnia G47.00 Active Assessment GERD (gastroesophageal reflux K21.9 Active disease) Problem Fatty liver K76.0 Active Assessment Cervicalgia M54.2 Active Problem Varicose veins I86.8 Active Assessment Other chronic pain G89.29 Active Problem Degenerative joint disease M19.90 Active Problem Hypertension I10 Active Problem Hyperlipidemia, mixed E78.2 Active Medications Medication Code Code Instructions Start End Status Dosage System Date Date Promethazine HCl [facility] 86026402727 25 MG/ML Active 1 ml as Injection needed every [address] [facility] 44900756992 10 MG Orally Active 1 tablet Once a day Furosemide [facility] 86559728023 20 MG Orally Active 1 tablet Once a day Trelegy Ellipta [facility] 37599023044 100-62.5-25 Active 1 puff MCG/INH Inhalation Once a day Venlafaxine HCl [facility] 95452843771 75 MG Active TAKE ONE ER CAPSULE BY MOUTH EVERY DAY Synthroid [facility] 23940808559 50 MCG Orally Active 1 tablet on Once a day an empty stomach in the morning Levothyroxine [facility] 62100937465 50 MCG Active TAKE 1 TABLET Sodium BY MOUTH EVERY DAY IN THE MORNING Venlafaxine HCl [facility] 50600723815 75 MG Active TAKE ONE ER CAPSULE BY MOUTH EVERY DAY Clopidogrel [facility] 56683476409 75 MG Orally Active 1 tablet Bisulfate Once a day Triamcinolone [facility] 82391453803 0.1 % May 19, Active 1 application Acetonide Externally 2018 to affected Twice a day area Nystatin [facility] 98685964760 984985 UNIT/ML August Active 4 ml Mouth/Throat 25, Four times a 2018 day Sulfamethoxazole- [facility] 23220690063 800-160 MG November Active 1 tablet Trimethoprim Orally Twice a 13, 23, day 2018 [address] [facility] 58691875895 108 (90 Base) Active 2 puffs as MCG/ACT needed Inhalation every [address] [facility] 86715882711 81 MG Active TAKE 1 TABLET BY MOUTH EVERY DAY Simvastatin [facility] 39087282244 40 MG Orally Active 1 tablet in Once a day the evening Atenolol [facility] 27908937211 100 MG PO Once Active TAKE 1 TABLET daily BY MOUTH EVERY DAY Simvastatin [facility] 82429511599 40 MG Orally Active 1 tablet in Once a day the evening Aspirin [facility] 85364287582 81 MG Active TAKE 1 TABLET BY MOUTH EVERY DAY Nexium [facility] 40699455976 40 MG Active TAKE ONE CAPSULE BY MOUTH EVERY DAY Nasonex [facility] 64216818643 50 MCG/ACT Active 2 sprays in Nasally Once a each nostril day Hydrocodone-Aceta [facility] 20388567963 5-325 MG Active 1 tablet as minophen Orally every 6 needed hrs Atenolol [facility] 54645459917 100 MG PO Once Active TAKE 1 TABLET daily BY MOUTH EVERY DAY Vitamin B12 [facility] 37485834904 1000 MCG Active 1 tablet Orally Once a day Hydrocortisone [facility] 58868606501 1 % Externally May 13, Active 1 application Acetate Twice a day 2017 to affected area Nexium [facility] 47808756747 40 MG Active TAKE ONE CAPSULE BY MOUTH EVERY DAY Results No Known Results Summary Purpose eClinicalWorks Submission
--- OUTSIDE RECORDS SUMMARY | 2018-12-31 12:14 | XMS REPORT ---
:1955 Author Organization eClinicalWorks Care Team Providers Name Role Phone Tonio Miller Provider Role Unavailable Allergies, Adverse Reactions, Alerts Substance Reaction Event Type Metoclopramide HCl Info Not Available Drug Allergy Amoxicillin Info Not Available Drug Allergy Problems Problem Type Condition Code Onset Dates Condition Status Assessment Pain in right hand M79.641 Active Assessment Pain of left hand M79.642 Active Problem Stented coronary artery Z95.5 Active Problem Kidney stone N20.0 Active Problem History of transient ischemic Z86.73 Active attack Problem Postsurgical menopause N95.8 Active Problem Obstructive sleep apnea G47.33 Active Problem Adrenal hypofunction E27.49 Active Problem Atherosclerosis of coronary artery I25.10 Active of [place] heart Problem History of cerebrovascular accident Z86.73 [...] Start End Status Dosage System Date Date Venlafaxine HCl [facility] 62991053857 75 MG Active TAKE ONE ER CAPSULE BY MOUTH EVERY DAY Hydrocodone-Aceta [place] 66022571417 5-325 MG Active 1 tablet as minophen Orally every 6 needed hrs Hydrocortisone ND 96169630605 1 % Externally May 13, Active 1 application Acetate Twice a day 2017 to affected area Nystatin ND 78232844975 447994 UNIT/ML August Active 4 ml Mouth/Throat 25, Four times a 2019 day Aspirin [facility] 50263389410 81 MG Active TAKE 1 TABLET BY MOUTH EVERY DAY Trelegy Ellipta [facility] 80101710307 100-62.5-25 Active 1 puff MCG/INH Inhalation Once a day Synthroid ND 50918678901 50 MCG Orally Active 1 tablet on Once a day an empty stomach in the morning Promethazine HCl [facility] 91862674926 25 MG/ML Active 1 ml as Injection needed every 6 hrs Triamcinolone [facility] 00342711195 0.1 % May 19, Active 1 application Acetonide Externally 2018 to affected Twice a day area Nexium [facility] 46456063016 40 MG Active TAKE ONE CAPSULE BY MOUTH EVERY DAY Levothyroxine [facility] 59114385402 50 MCG Active TAKE 1 TABLET Sodium BY MOUTH EVERY DAY IN THE MORNING Furosemide [facility] 71953832487 20 MG Orally Active 1 tablet Once a day Aspirin [facility] 50232205108 81 MG Active TAKE 1 TABLET BY MOUTH EVERY DAY Atenolol [facility] 41314363756 100 MG PO Once Active TAKE 1 TABLET daily BY MOUTH EVERY DAY Simvastatin [facility] 30265518000 40 MG Orally Active 1 tablet in Once a day the evening Nasonex [facility] 14826729495 50 MCG/ACT Active 2 sprays in Nasally Once a each nostril day Vitamin B12 [facility] 31366776153 1000 MCG Active 1 tablet Orally Once a day ProAir HFA [facility] 03287231976 108 (90 Base) Active 2 puffs as MCG/ACT needed Inhalation every 6 hrs Clopidogrel [facility] 12872710534 75 MG Orally Active 1 tablet Bisulfate Once a day Venlafaxine HCl [facility] 43567915317 75 MG Active TAKE ONE ER CAPSULE BY MOUTH EVERY DAY Loratadine [facility] 03881298078 10 MG Orally Active 1 tablet Once a day Nexium [facility] 30988016446 40 MG Active TAKE ONE CAPSULE BY MOUTH EVERY DAY Sulfamethoxazole- [facility] 07039136004 800-160 MG November Active 1 tablet Trimethoprim Orally Twice a , , day 2018 2018 Results No Known Results Summary Purpose eClinicalWorks Submission
[2018-12-31] MEDS ORDERED: ONDANSETRON 4 MG/2 ML VIAL ONE (13:30)
[2018-12-31] MEDS ORDERED: FAMOTIDINE 20 MG/2 ML VIAL IV ONE (13:30)
[2018-12-31] MEDS ORDERED: MORPHINE 4 MG/ML SYR ONE (13:30)
[2018-12-31] MEDS ORDERED: NA CHLORIDE 0.9% 500 ML ONE (13:30)
[2018-12-31 13:36] LABS: Absolute Lymphocytes (CBC) 2.1 K/uL (0.7-4.9); Basophils % 0.4 % (0-1.3); Eosinophils % 0.9 % (0-4.4); Hematocrit 38.7 % (36.0-45.0); MPV 9.3 fL (7.6-11.3)
[2018-12-31 13:58] LABS: Albumin 3.3 g/dL (3.4-5.0); Bilirubin Direct 0.2 mg/dL (0-0.2); Bilirubin Total 0.9 mg/dL (0.2-1.0); Potassium 3.9 mmol/L (3.5-5.1)
--- NOTE | 2018-12-31 14:44 | RAD REPORT ---
EXAM DESCRIPTION: CT - Abdomen Pelvis W Contrast - 12/31/2018 2:23 pm CLINICAL HISTORY: Abdominal pain COMPARISON: July 2016 TECHNIQUE: Biphasic, helical CT imaging of the abdomen and pelvis was performed following 100 ml non -ionic IV contrast. Oral contrast was given. All CT scans are performed using dose optimization technique as appropriate and may include automated exposure control or mA/KV adjustment according to patient size. FINDINGS: No suspicious findings in the lung bases. No pericardial thickening or effusion. Liver shows a fatty infiltration pattern with no focal liver lesions seen. Liver size is normal. Sple en and pancreas show no suspicious findings. Cholecystectomy clips are present. No biliary tree dilat ation. Symmetric renal function is seen with no hydronephrosis or suspicious renal mass. No pyelonephritis o r acute parenchymal process. A 7 millimeter calcification is present upper pole calyx on the right. B ilateral renal cysts are present. Cortical thinning anterior mid left kidney matches the prior study and is probably an old infectious insult. No adrenal abnormality. No gastric dilatation or wall thickening. No dilated large or small bowel. Moderate stool volume pres ent throughout the colon. No acute colon finding. Sigmoid is redundant reaching the anterior upper ab domen. No urinary bladder wall thickening or mass. Punctate air densities within the lumen of the bladder ma y be from catheterization procedure. No free air, free fluid or inflammatory stranding. No hernia, m ass or bulky lymphadenopathy. No suspicious bony findings. IMPRESSION: CT abdomen and pelvis imaging showing no acute finding. Punctate air within the lumen of the urinary bladder presumed to be from a catheterization procedure. This would need clinical correlation. No pyelonephritis or other acute finding. Nonobstructing 7 millimeter calcification has formed in the upper pole right kidney since the 2017 comparison. Fatty infiltration of the liver.
--- NOTE | 2018-12-31 15:36 | EDPHYS ---
Physician Documentation [facility] Name: Toshia Barone Age: 63 yrs Sex: Female : 1955 Arrival Date: 12/31/2018 Time: 11:23 Bed 15 Private MD: ED Physician Guru Kaiser HPI: 12/31 19:02 This 63 yrs old Female presents to ER via Ambulatory with complaints of Bloody kdr Stools, chills,fatigue. 19:02 The patient presents with abdominal pain that is diffuse. kdr 19:02 Onset: The symptoms/episode began/occurred gradually, 5 day(s) ago. The symptoms do not kdr radiate. Associated signs and symptoms: Pertinent positives: blood in stools, nausea, Pertinent negatives: vaginal discharge, vomiting, vomiting blood. The symptoms are described as achy, crampy, intermittent, vague, waxing/waning. Modifying factors: The symptoms are alleviated by nothing, the symptoms are aggravated by movement, touching the area. Severity of pain: At its worst the pain was mild in the emergency department the pain is unchanged. The patient has not experienced similar symptoms in the past. The patient has not recently seen a physician. Historical: - Allergies: 11:37 methylphenidate HCl; ph 11:37 PENICILLINS; ph 11:37 Reglan; ph 11:37 Ritalin; ph - PMHx: 11:37 B12 deficiency; CHF; COPD; CVA; DVT; fatty liver; GERD; Hyperlipidemia; Hypertension; ph Hypothyroidism; Kidney stones; Myocardial infarction; Pancreatitis; TIA; - PSHx: 11:37 Lobectomy; Heart stents; right leg varicose vein; ; Hysterectomy; ph - Immunization history:: Adult Immunizations unknown. - Social history:: Smoking status: Patient/guardian denies using tobacco. - Ebola Screening: : No symptoms or risks identified at this time. ROS: 19:02 Constitutional: Negative for fever, chills, and weight loss, Eyes: Negative for injury, kdr pain, redness, and discharge, ENT: Negative for injury, pain, and discharge, Neck: Negative for injury, pain, and swelling, Cardiovascular: Negative for chest pain, palpitations, and edema, Respiratory: Negative for shortness of breath, cough, wheezing, and pleuritic chest pain, Back: Negative for injury and pain, : Negative for injury, bleeding, discharge, and swelling, MS/Extremity: Negative for injury and deformity, Skin: Negative for injury, rash, and discoloration, Neuro: Negative for headache, weakness, numbness, tingling, and seizure activity. Psych: Negative for depression, anxiety, suicide ideation, homicidal ideation, and hallucinations, Allergy/Immunology: Negative for hives, rash, and allergies, Endocrine: Negative for neck swelling, polydipsia, polyuria, polyphagia, and marked weight changes, Hematologic/Lymphatic: Negative for swollen nodes, abnormal bleeding, and unusual bruising. 19:02 Abdomen/GI: Positive for abdominal pain, nausea, Negative for constipation, abdominal cramps, abdominal distension, anorexia, dysphagia, hematemesis, black/tarry stool, rectal pain, rectal bleeding, bowel incontinence, flatulence. Exam: 19:02 Constitutional: This is a well developed, well nourished patient who is awake, alert, kdr and in no acute distress. Head/Face: Normocephalic, atraumatic. Eyes: Pupils equal round and reactive to light, extra-ocular motions intact. Lids and lashes normal. Conjunctiva and sclera are non-icteric and not injected. Cornea within normal limits. Periorbital areas with no swelling, redness, or edema. Neck: Trachea midline, no thyromegaly or masses palpated, and no cervical lymphadenopathy. Supple, full range of motion without nuchal rigidity, or vertebral point tenderness. No Meningismus. Chest/axilla: Normal chest wall appearance and motion. Nontender with no deformity. No lesions are appreciated. Cardiovascular: Regular rate and rhythm with a normal S1 and S2. No gallops, murmurs, or rubs. Normal PMI, no JVD. No pulse deficits. Respiratory: Lungs have equal breath sounds bilaterally, clear to auscultation and percussion. No rales, rhonchi or wheezes noted. No increased work of breathing, no retractions or nasal flaring. Back: No spinal tenderness. No costovertebral tenderness. Full range of motion. Skin: Warm, dry with normal turgor. Normal color with no rashes, no lesions, and no evidence of cellulitis. MS/ Extremity: Pulses equal, no cyanosis. Neurovascular intact. Full, normal range of motion. Neuro: Awake and alert, GCS 15, oriented to person, place, time, and situation. Cranial nerves II-XII grossly intact. Motor strength 5/5 in all extremities. Sensory grossly intact. Cerebellar exam normal. Normal gait. Psych: Awake, alert, with orientation to person, place and time. Behavior, mood, and affect are within normal limits. 19:02 Abdomen/GI: Inspection: obese Bowel sounds: active, diminished, in all quadrants, Palpation: soft, nontender, in all quadrants, mass, is not appreciated, rebound tenderness, is not appreciated. Vital Signs: 11:37 BP 189 / 89; Pulse 66; Resp 18; Temp 98.5; Pulse Ox 100% on R/A; Weight 83.91 kg; ph Height 5 ft. 5 in. (165.10 cm); Pain 10/10; 13:26 BP 134 / 76; Pulse 62; Resp 18; Pulse Ox 97% on R/A; aj 13:57 BP 145 / 71; Pulse 61; Resp 18; Pulse Ox 100% on R/A; aj 15:06 BP 138 / 69; Pulse 59; Resp 16; Pulse Ox 96% on R/A; aj 11:37 Body Mass Index 30.79 (83.91 kg, 165.10 cm) ph MDM: 15:35 Patient medically screened. kdr 19:02 Data reviewed: vital signs, nurses notes, lab test result(s), radiologic studies. kdr Counseling: I had a detailed discussion with the patient and/or guardian regarding: the historical points, exam findings, and any diagnostic results supporting the discharge/admit diagnosis, lab results, radiology results, the need for outpatient follow up. 12/31 12:03 Order name: Basic Metabolic Panel; Complete Time: 14:17 kdr 12/31 12:03 Order name: CBC with Diff; Complete Time: 13:56 kdr 12/31 12:03 Order name: Creatinine for Radiology; Complete Time: 14:17 kdr 12/31 12:03 Order name: Hepatic Function; Complete Time: 14:17 kdr 12/31 12:03 Order name: Lipase; Complete Time: 14:17 kdr 12/31 15:29 Order name: Urine Dipstick--Ancillary (enter results) ag 12/31 12:03 Order name: IV Saline Lock; Complete Time: 13:12 kdr 12/31 12:03 Order name: Labs collected and sent; Complete Time: 13:12 kdr 12/31 13:09 Order name: CT Abd/Pelvis - IV Contrast Only; Complete Time: 14:49 kdr Administered Medications: 13:20 Drug: morphine 4 mg Route: IVP; Site: right antecubital; aj 15:57 Follow up: Response: Pain is decreased ph 13:20 Drug: Zofran 4 mg Route: IVP; Site: right antecubital; aj 15:57 Follow up: Response: No adverse reaction ph 13:20 Drug: NS 0.9% 500 ml Route: IV; Rate: bolus; Site: right antecubital; aj 15:58 Follow up: Response: No adverse reaction; IV Status: Completed infusion; IV Intake: ph 500ml 13:20 Drug: Pepcid 20 mg Route: IVP; Site: right antecubital; aj 15:58 Follow up: Response: No adverse reaction ph 15:56 Drug: Cipro 500 mg Route: PO; ph 15:59 Follow up: Response: No adverse reaction ph Disposition: 12/31/18 15:35 Discharged to Home. Impression: Abdominal and pelvic pain, Cystitis. - Condition is Stable. - Discharge Instructions: Abdominal Pain, Adult, [id number], Acute Urinary Retention, Female, Pgcm-[id number]. - Prescriptions for Bentyl 20 mg Oral Tablet - take 1 tablet by ORAL route every 6 hours As needed; 20 tablet. Pepcid 20 mg Oral Tablet - take 1 tablet by ORAL route every 12 hours for 5 days; 10 tablet. Zofran 4 mg Oral Tablet - take 1 tablet by ORAL route every 12 hours As needed; 6 tablet. Tramadol 50 mg Oral Tablet - take 1 tablet by ORAL route every 8 hours as needed; 12 tablet. Cipro 500 mg Oral Tablet - take 1 tablet by ORAL route every 12 hours for 7 days; 14 tablet. - Medication Reconciliation Form, Thank You Letter, Prescription Opioid Use form. - Follow up: Private Physician; When: 2 - 3 days; Reason: If symptoms return, Further diagnostic work-up, Recheck today's complaints, Continuance of care, Re-evaluation by your physician. - Problem is an acute exacerbation. - Symptoms have improved. Signatures: Dispatcher [employer] Allyson Gonsalez RN RN aj Rittger, Guru, MD MD kdr Sweeney, Viviana, RN RN ph Corrections: (The following items were deleted from the chart) 15:38 15:35 12/31/2018 15:35 Discharged to Home. Impression: Abdominal and pelvic pain. kdr Condition is Stable. Forms are Medication Reconciliation Form, Thank You Letter, Antibiotic Education, Prescription Opioid Use. Follow up: Private Physician; When: 2 - 3 days; Reason: If symptoms return, Further diagnostic work-up, Recheck today's complaints, Continuance of care, Re-evaluation by your physician. Problem is an acute exacerbation. Symptoms have improved. kdr 16:00 15:38 12/31/2018 15:35 Discharged to Home. Impression: Abdominal and pelvic pain; ph Cystitis. Condition is Stable. Discharge Instructions: Abdominal Pain, Adult, Wsgx-he-Jwjw, Acute Urinary Retention, Female, Wbef-si-Uxxc. Prescriptions for Bentyl 20 mg Oral Tablet - take 1 tablet by ORAL route every 6 hours As needed; 20 tablet, Pepcid 20 mg Oral Tablet - take 1 tablet by ORAL route every 12 hours for 5 days; 10 tablet, Zofran 4 mg Oral Tablet - take 1 tablet by ORAL route every 12 hours As needed; 6 tablet, Tramadol 50 mg Oral Tablet - take 1 tablet by ORAL route every 8 hours as needed; 12 tablet. and Forms are Medication Reconciliation Form, Thank You Letter, Prescription Opioid Use. Follow up: Private Physician; When: 2 - 3 days; Reason: If symptoms return, Further diagnostic work-up, Recheck today's complaints, Continuance of care, Re-evaluation by your physician. Problem is an acute exacerbation. Symptoms have improved. kdr
--- NOTE | 2018-12-31 15:36 | ER ---
Nurse's Notes [facility] Name: Toshia Barone Age: 63 yrs Sex: Female : 1955 Arrival Date: 12/31/2018 Time: 11:23 Bed 15 Private MD: Diagnosis: Abdominal and pelvic pain;Cystitis Presentation: 12/31 11:34 Presenting complaint: Patient states: Bright red stools approx 1 week ago, abdominal ph pain 2 days later, also c/o chills, SOB and nausea, denies V/D. Transition of care: patient was not received from another setting of care. Onset of symptoms was December 31, 2018. Risk Assessment: Do you want to hurt yourself or someone else? Patient reports no desire to harm self or others. Initial Sepsis Screen: Does the patient meet any 2 criteria? No. Patient's initial sepsis screen is negative. Does the patient have a suspected source of infection? No. Patient's initial sepsis screen is negative. Care prior to arrival: None. 11:34 Method Of Arrival: Ambulatory ph 11:34 Acuity: SHARON 3 ph Historical: - Allergies: 11:37 methylphenidate HCl; ph 11:37 PENICILLINS; ph 11:37 Reglan; ph 11:37 Ritalin; ph - PMHx: 11:37 B12 deficiency; CHF; COPD; CVA; DVT; fatty liver; GERD; Hyperlipidemia; Hypertension; ph Hypothyroidism; Kidney stones; Myocardial infarction; Pancreatitis; TIA; - PSHx: 11:37 Lobectomy; Heart stents; right leg varicose vein; ; Hysterectomy; ph - Immunization history:: Adult Immunizations unknown. - Social history:: Smoking status: Patient/guardian denies using tobacco. - Ebola Screening: : No symptoms or risks identified at this time. Screenin:01 Abuse screen: Denies threats or abuse. Denies injuries from another. Nutritional aj screening: No deficits noted. Tuberculosis screening: No symptoms or risk factors identified. Fall Risk None identified. Assessment: 12:00 General: Appears in no apparent distress. comfortable, Behavior is calm, cooperative, aj appropriate for age. Pain: Complains of pain in abdomen. Neuro: Level of Consciousness is awake, alert, obeys commands, Oriented to person, place, time, situation, Appropriate for age. Respiratory: Airway is patent Respiratory effort is even, unlabored, Respiratory pattern is regular, symmetrical. GI: Reports lower abdominal pain, upper abdominal pain, bloody stool, nausea. Derm: Skin is intact, is healthy with good turgor, Skin is pink, warm \T\ dry. normal. Vital Signs: 11:37 BP 189 / 89; Pulse 66; Resp 18; Temp 98.5; Pulse Ox 100% on R/A; Weight 83.91 kg; ph Height 5 ft. 5 in. (165.10 cm); Pain 10/10; 13:26 BP 134 / 76; Pulse 62; Resp 18; Pulse Ox 97% on R/A; aj 13:57 BP 145 / 71; Pulse 61; Resp 18; Pulse Ox 100% on R/A; aj 15:06 BP 138 / 69; Pulse 59; Resp 16; Pulse Ox 96% on R/A; aj 11:37 Body Mass Index 30.79 (83.91 kg, 165.10 cm) ph ED Course: 11:23 Patient arrived in ED. mr 11:36 Guru Kaiser MD is Attending Physician. kdr 11:36 Triage completed. ph 11:38 Arm band placed on Patient placed in an exam room. ph 11:59 Allyson Harris, REZA is Primary Nurse. aj 12:01 Patient has correct armband on for positive identification. aj 14:00 Inserted saline lock: 20 gauge in right antecubital area, using aseptic technique. ph Blood collected. 14:24 CT Abd/Pelvis - IV Contrast Only In Process Unspecified. EDMS 16:00 No provider procedures requiring assistance completed. IV discontinued, intact, ph bleeding controlled, No redness/swelling at site. Pressure dressing applied. Administered Medications: 13:20 Drug: morphine 4 mg Route: IVP; Site: right antecubital; aj 15:57 Follow up: Response: Pain is decreased ph 13:20 Drug: Zofran 4 mg Route: IVP; Site: right antecubital; aj 15:57 Follow up: Response: No adverse reaction ph 13:20 Drug: NS 0.9% 500 ml Route: IV; Rate: bolus; Site: right antecubital; aj 15:58 Follow up: Response: No adverse reaction; IV Status: Completed infusion; IV Intake: ph 500ml 13:20 Drug: Pepcid 20 mg Route: IVP; Site: right antecubital; aj 15:58 Follow up: Response: No adverse reaction ph 15:56 Drug: Cipro 500 mg Route: PO; ph 15:59 Follow up: Response: No adverse reaction ph Intake: 15:58 IV: 500ml; Total: 500ml. ph Outcome: 15:35 Discharge ordered by . maco 16:00 Discharged to home ambulatory. ph 16:00 Condition: good 16:00 Discharge instructions given to patient, Instructed on discharge instructions, follow up and referral plans. medication usage, Demonstrated understanding of instructions, follow-up care, medications, Prescriptions given X 5 16:00 Patient left the ED. ph Signatures: Dispatcher [employer] Allyson Gonsalez RN RN aj Rittger, Kevin, MD MD kdr Rivera, Mary mr Hall, Patricia, RN RN ph
[2018-12-31 15:52] LABS: Urine Blood 1+ (NEG); Urine Glucose NEGATIVE (NEG); Urine Protein NEGATIVE (NEG); Urine pH 7.5 (5.0-7.0)
[2018-12-31] MEDS ORDERED: CIPROFLOXACIN HCL 500 MG TAB ONE (16:06)
[2018-12-31 16:14] VITALS: TEMP 98.5
[2018-12-31 16:16] VITALS: BP 138/69; O2SAT 96
== END 2018-12-31 16:00 | disposition home or self-care (01) ==
LOC: ER 11:20
DX: N30.90 Cystitis, unspecified without hematuria (principal); I10 Essential (primary) hypertension; I25.2 Old myocardial infarction; Z88.0 Allergy status to penicillin; Z88.8 Allergy status to other drugs, medicaments and biological substances; Z95.818 Presence of other cardiac implants and grafts
CPT/HCPCS: 36415; 74177; 80048; 80076; 81003; 83690; 85025; 96361; 96374; 96375; 99284; J2405; Q9967

== ENCOUNTER 2019-01-01 11:10 | Emergency (ER) | payer OTHER ==
--- OUTSIDE RECORDS SUMMARY | 2019-01-01 11:13 | XMS REPORT ---
[...] Atherosclerosis of coronary artery I25.10 Active of [place] [facility] Assessment Chronic obstructive pulmonary J44.9 Active [...] Atherosclerosis of coronary artery I25.10 Active of [place] [facility] Problem Simple renal cyst N28.1 Active [...] End Status Dosage System Date Date Aspirin [facility] 68654584177 81 MG Active TAKE 1 TABLET BY MOUTH EVERY DAY Lipitor [facility] 67986004314 40 MG Orally Active 1 tablet Once a day ProAir HFA [facility] 76254632068 108 (90 Base) Active 2 puffs MCG/ACT as needed Inhalation every 6 hrs Aspirin [facility] 05177628084 81 MG Active TAKE 1 TABLET BY MOUTH EVERY DAY Venlafaxine HCl [facility] 84809450053 75 MG Active TAKE ONE ER CAPSULE BY MOUTH EVERY DAY Venlafaxine HCl [facility] 18391084353 75 MG Active TAKE ONE ER CAPSULE BY MOUTH EVERY DAY Loratadine [facility] 27686358498 10 MG Orally Active 1 tablet Once a day Atenolol [facility] 20531948927 100 MG PO Once Active TAKE 1 daily TABLET BY MOUTH EVERY DAY Nasonex [facility] 37124323870 50 MCG/ACT Active 2 sprays Nasally Once a in each day nostril Promethazine HCl [facility] 75390618464 25 MG/ML Active 1 ml as Injection every needed 6 hrs Ultram [facility] 02128265590 50 MG Orally Active 1 tablet every 6 hrs as needed Trelegy Ellipta [facility] 46231415729 100-62.5-25 Active 1 puff MCG/INH Inhalation Once a day Furosemide [facility] 59319594908 20 MG Orally Active 1 tablet Once a day Nexium [facility] 18856599660 40 MG Active TAKE ONE CAPSULE BY MOUTH EVERY DAY Nexium [facility] 54516338197 40 MG Active TAKE ONE CAPSULE BY MOUTH EVERY DAY Vitamin B12 [facility] 73661569720 1000 MCG Orally Active 1 tablet Once a day Nortriptyline [facility] 75174219474 25 MG Orally Inactive 1 capsule HCl Once a day Synthroid [facility] 19800363684 50 MCG Orally Active 1 tablet Once a day on an empty stomach in the morning Clopidogrel [facility] 26849284870 75 MG Orally Active 1 tablet Bisulfate Once a day Results No Known Results Summary Purpose eClinicalWorks Submission
--- OUTSIDE RECORDS SUMMARY | 2019-01-01 11:13 | XMS REPORT ---
[...] Atherosclerosis of coronary artery I25.10 Active of [place] heart Problem Simple renal cyst N28.1 Active [...]
--- OUTSIDE RECORDS SUMMARY | 2019-01-01 11:13 | XMS REPORT ---
:1955 Author Organization eClinicalWorks Care Team Providers Name Role Phone Tonio Miller Provider Role Unavailable Allergies No Known Allergies Problems Problem Type Condition Code Onset Dates Condition Status Assessment Stented coronary artery Z95.5 Active Assessment GERD (gastroesophageal reflux K21.9 Active disease) Assessment Hypertension I10 Active Assessment Atherosclerosis of coronary artery I25.10 Active of [place] [facility] Assessment Chronic obstructive pulmonary J44.9 Active [...] Atherosclerosis of coronary artery I25.10 Active of [place] [facility] Problem Simple renal cyst N28.1 Active [...] End Status Dosage System Date Date Ultram [facility] 98503101251 50 MG Orally Active 1 tablet every 6 hrs as needed Synthroid [facility] 22442525396 50 MCG Orally Active 1 tablet Once a day on an empty stomach in the morning Nasonex [facility] 72187129405 50 MCG/ACT Active 2 sprays Nasally Once a in each day nostril Nystatin [facility] [address]-73 631961 U/ML Inactive not Mouth/Throat defined Gabapentin [facility] 83735715627 100 MG Orally Inactive 1 capsule Three times a day Nortriptyline [facility] 59533472907 25 MG Orally Inactive 1 capsule HCl Once a day Lorazepam [facility] 16440540972 0.5 MG Orally Inactive 1 tablet every 6 hrs as needed Promethazine HCl [facility] 53750238008 25 MG/ML Active 1 ml as Injection every needed 6 hrs Aspirin [facility] 31198682063 81 MG Active TAKE 1 TABLET BY MOUTH EVERY DAY Venlafaxine HCl [facility] 31883631544 75 MG Active TAKE ONE ER CAPSULE BY MOUTH EVERY DAY Clopidogrel [facility] 34060741540 75 MG Orally Active 1 tablet Bisulfate Once a day Vitamin B12 [facility] 96550746366 1000 MCG Orally Active 1 tablet Once a day Furosemide [facility] 69498966033 20 MG Orally Active 1 tablet Once a day Atenolol [facility] 24656963350 100 MG PO Once Active TAKE 1 daily TABLET BY MOUTH EVERY DAY Trelegy Ellipta [facility] 84284432676 100-62.5-25 Active 1 puff MCG/INH Inhalation Once a day Nexium [facility] 91720591614 40 MG Active TAKE ONE CAPSULE BY MOUTH EVERY DAY Loratadine [facility] 32745775605 10 MG Orally Active 1 tablet Once a day Lipitor [facility] 18859866952 40 MG Orally Active 1 tablet Once a day ProAir HFA [facility] 57604335339 108 (90 Base) Active 2 puffs MCG/ACT as needed Inhalation every 6 hrs Results No Known Results Summary Purpose eClinicalWorks Submission
--- OUTSIDE RECORDS SUMMARY | 2019-01-01 11:14 | XMS REPORT ---
[...] Atherosclerosis of coronary artery I25.10 Active of [place] heart Problem Simple renal cyst N28.1 Active [...]
--- OUTSIDE RECORDS SUMMARY | 2019-01-01 11:14 | XMS REPORT ---
[...] Atherosclerosis of coronary artery I25.10 Active of [place] heart Problem Simple renal cyst N28.1 Active [...]
--- OUTSIDE RECORDS SUMMARY | 2019-01-01 11:14 | XMS REPORT ---
:1955 [facility] Address [address] [place] [address] Care Team Providers Name Role Phone Unavailable [...] HIGH.........130-159 mg/dL HIGH.........160-189 mg/dL VERY HIGH.........>/=190 mg/dL [id number] 08:02:00 Test Item Value Reference Range Comments MAGNESIUM (test code=MAG) 2.0 MG/DL 1.6-2.3 LIPID PROFILE (CORONARY RISK)2018-08-01 07:51:00 Test Item Value Reference Range Comments TRIGLYCERIDES (test code=TRIG) 194 MG/DL TRIGLYCERIDES REFERENCE RANGE:Normal: <150 mg/dLBorderline High: 150-199 mg/dLHigh: 200-499 mg/dLVery High: >=500 mg/dL CHOLESTEROL (test code=CHOL) 206 MG/DL <200 HDL CHOLESTEROL (test 59 MG/DL 40-59 code=HDL) LIPOPROTEIN LDL (test MG/DL 0-99 code=LDL) [id number] 07:51:00 Test Item Value Reference Range Comments MAGNESIUM (test code=MAG) 2.0 MG/DL 1.6-2.3 PROTHROMBIN [id number] 07:37:00 Test Item Value Reference Range Comments [...] recurrent systemic embolism. 3.0 - 4.5 PTT [id number] 07:37:00 Test Item Value Reference Range Comments PTT ACTIVATED (test code=APTT) 26.7 SECONDS 22.0-33.0 [id number] 01:26:00 Test Item Value Reference Range Comments TROPONIN-I (test code=TROPI) < 0.012 NG/ML 0.012-0.033 HEPATIC FUNCTION [id number] 18:44:00 Test Item Value Reference Range Comments TOTAL PROTEIN (test code=PROT) 7.2 G/DL 6.3-8.2 ALBUMIN (test code=ALB) 3.6 G/DL 3.5-5.0 BILIRUBIN TOTAL (test code=BILT) 0.9 MG/DL 0.2-1.3 BILIRUBIN DIRECT (test code=BILD) 0.0 MG/DL 0.0-0.3 SGOT/AST (test code=AST) 27 UNITS/L 14-36 SGPT/ALT (test code=ALT) 19 UNITS/L 9-52 ALKALINE PHOSPHATASE (test code=ALKP) 77 UNITS/L 38-126 BASIC METABOLIC [id number] 18:15:00 Test Item Value Reference Range Comments [...] 0.52-1.04 CALCIUM (test code=CA) 8.9 MG/DL 8.4-10.2 [id number] 18:15:00 Test Item Value Reference Range Comments TROPONIN-I (test code=TROPI) < 0.012 NG/ML 0.012-0.033 BASIC METABOLIC [id number] 18:03:00 Test Item Value Reference Range Comments [...] 0.52-1.04 CALCIUM (test code=CA) 8.9 MG/DL 8.4-10.2 [id number] 18:03:00 Test Item Value Reference Range Comments TROPONIN-I (test code=TROPI) NG/ML 0.0-0.045 CBC W/O [id number] 17:39:00 Test Item Value Reference Range Comments [...]
--- OUTSIDE RECORDS SUMMARY | 2019-01-01 11:14 | XMS REPORT ---
:1955 Author Organization eClinicalWorks Care Team Providers Name Role Phone Sarahy Millerh Provider Role Unavailable Allergies, Adverse Reactions, Alerts Substance Reaction Event Type Metoclopramide HCl Info Not Available Drug Allergy Amoxicillin Info Not Available Drug Allergy Problems Problem Type Condition Code Onset Dates Condition Status Assessment Atherosclerosis of coronary artery I25.10 Active of [place] heart Assessment Stented coronary artery Z95.5 Active [...] Atherosclerosis of coronary artery I25.10 Active of [place] heart Problem Simple renal cyst N28.1 Active [...] End Status Dosage System Date Date Atenolol [facility] 73123791051 100 MG PO Once Active TAKE 1 daily TABLET BY MOUTH EVERY DAY Aspirin [facility] 33529034113 81 MG Active TAKE 1 TABLET BY MOUTH EVERY DAY Synthroid [facility] 02852180916 50 MCG Orally Active 1 tablet Once a day on an empty stomach in the morning Loratadine [facility] 46147234393 10 MG Orally Active 1 tablet Once a day ProAir HFA [facility] 51998321661 108 (90 Base) Active 2 puffs as MCG/ACT needed Inhalation every 6 hrs Lipitor [facility] 82584679957 40 MG Orally Active 1 tablet Once a day Nexium [facility] 34238549241 40 MG Active TAKE ONE CAPSULE BY MOUTH EVERY DAY Nexium [facility] 57666407114 40 MG Active TAKE ONE CAPSULE BY MOUTH EVERY DAY Aspirin [facility] 93030075028 81 MG Active TAKE 1 TABLET BY MOUTH EVERY DAY Vitamin B12 [facility] 11408231845 1000 MCG Orally Active 1 tablet Once a day Nasonex [facility] 68682575564 50 MCG/ACT Active 2 sprays Nasally Once a in each day nostril Clopidogrel [facility] 82217017560 75 MG Orally Active 1 tablet Bisulfate Once a day Trelegy Ellipta [facility] 64901180921 100-62.5-25 Active 1 puff MCG/INH Inhalation Once a day Promethazine HCl [facility] 31714124485 25 MG/ML Active 1 ml as Injection every needed 6 hrs Venlafaxine HCl [facility] 88000681006 75 MG Active TAKE ONE ER CAPSULE BY MOUTH EVERY DAY Ultram [facility] 45897297710 50 MG Orally Active 1 tablet every 6 hrs as needed Furosemide [facility] 12279128323 20 MG Orally Active 1 tablet Once a day Venlafaxine HCl [facility] 38396638793 75 MG Active TAKE ONE ER CAPSULE BY MOUTH EVERY DAY Results No Known Results Summary Purpose eClinicalWorks Submission
--- OUTSIDE RECORDS SUMMARY | 2019-01-01 11:14 | XMS REPORT ---
[...] Atherosclerosis of coronary artery I25.10 Active of [place] heart Problem Simple renal cyst N28.1 Active [...] Status Dosage System Date Date Azithromycin ND 66898640528 250 MG Orally Jul 16Jun Active 2 tablets on Once a day 2018, the first 2018 day, then 1 tablet daily for 4 days Simvastatin ND 87410558319 40 MG Orally May 27, Active 1 tablet in Once a day 2018 the evening ProAir HFA [facility] 63920978063 108 (90 Base) Active 2 puffs as MCG/ACT needed Inhalation every 6 hrs Trelegy Ellipta [facility] 48127207951 100-62.5-25 Active 1 puff MCG/INH Inhalation Once a day Venlafaxine HCl [facility] 38906888642 75 MG Active TAKE ONE ER CAPSULE BY MOUTH EVERY DAY Loratadine [facility] 13176508279 10 MG Orally Active 1 tablet Once a day Synthroid ND 82353863236 50 MCG Orally Active 1 tablet on Once a day an empty stomach in the morning Venlafaxine HCl [facility] 98145651527 75 MG Active TAKE ONE ER CAPSULE BY MOUTH EVERY DAY Clopidogrel [facility] 75184615951 75 MG Orally Active 1 tablet Bisulfate Once a day Hydrocortisone ND 06409965947 1 % Externally May 13, Active 1 application Acetate Twice a day 2017 to affected area Aspirin ND 31553194557 81 MG Active TAKE 1 TABLET BY MOUTH EVERY DAY Promethazine HCl [facility] 76384772933 25 MG/ML Active 1 ml as Injection needed every 6 hrs Nasonex [facility] 30656205337 50 MCG/ACT Active 2 sprays in Nasally Once a each nostril day Nexium [facility] 44310680779 40 MG Active TAKE ONE CAPSULE BY MOUTH EVERY DAY Atenolol ND 26697625370 100 MG PO Once Active TAKE 1 TABLET daily BY MOUTH EVERY DAY Ultram [facility] 25723295424 50 MG Orally Active 1 tablet as every 6 hrs needed Triamcinolone ND 20719502709 0.1 % May 19, Active 1 application Acetonide Externally 2017 to affected Twice a day area Furosemide ND 49312143625 20 MG Orally Active 1 tablet Once a day Aspirin [facility] 06354298614 81 MG Active TAKE 1 TABLET BY MOUTH EVERY DAY Vitamin B12 [facility] 24153173146 1000 MCG Active 1 tablet Orally Once a day Results Name Result Date Reference Range Unit Abnormality Flag FLU TEST ----A Neg [id number] ----B Neg [id number] Summary Purpose eClinicalWorks Submission
--- OUTSIDE RECORDS SUMMARY | 2019-01-01 11:15 | XMS REPORT ---
[...] Atherosclerosis of coronary artery I25.10 Active of [place] heart Problem History of cerebrovascular accident Z86.73 [...] End Status Dosage System Date Date Hydrocortisone [facility] 81252021538 1 % Externally May 13, Active 1 application Acetate Twice a day 2017 to affected area Trelegy Ellipta [facility] 56278334035 100-62.5-25 Active 1 puff MCG/INH Inhalation Once a day Nasonex ND 97472262603 50 MCG/ACT Active 2 sprays in Nasally Once a each nostril day Aspirin ND 35666885761 81 MG Active TAKE 1 TABLET BY MOUTH EVERY DAY Aspirin [facility] 77148805272 81 MG Active TAKE 1 TABLET BY MOUTH EVERY DAY Atenolol ND 85143531954 100 MG PO Once Active TAKE 1 TABLET daily BY MOUTH EVERY DAY ProAir HFA [facility] 13896377871 108 (90 Base) Active 2 puffs as MCG/ACT needed Inhalation every 6 hrs Clopidogrel [facility] 98452275368 75 MG Orally Active 1 tablet Bisulfate Once a day Hydrocodone-Aceta [facility] 63918892514 5-325 MG Active 1 tablet as minophen Orally every 6 needed hrs Furosemide ND 20543633280 20 MG Orally Active 1 tablet Once a day Simvastatin [facility] 92772474823 40 MG Orally Active 1 tablet in Once a day the evening Vitamin B12 [facility] 29242029772 1000 MCG Active 1 tablet Orally Once a day Nystatin [facility] 66715237313 320077 UNIT/ML August Active 4 ml Mouth/Throat 25, Four times a 2018 day Synthroid [facility] 31580676892 50 MCG Orally Active 1 tablet on Once a day an empty stomach in the morning Triamcinolone [facility] 47066834558 0.1 % May 19, Active 1 application Acetonide Externally 2017 to affected Twice a day area Nexium [facility] 03468124233 40 MG Active TAKE ONE CAPSULE BY MOUTH EVERY DAY Atenolol ND 11384316033 100 MG PO Once Active TAKE 1 TABLET daily BY MOUTH EVERY DAY Loratadine [facility] 04124892624 10 MG Orally Active 1 tablet Once a day Promethazine HCl [facility] 27250158154 25 MG/ML Active 1 ml as Injection needed every 6 hrs Venlafaxine HCl [facility] 56794039373 75 MG Active TAKE ONE ER CAPSULE BY MOUTH EVERY DAY Results No Known Results Summary Purpose eClinicalWorks Submission
--- OUTSIDE RECORDS SUMMARY | 2019-01-01 11:15 | XMS REPORT ---
[...] Atherosclerosis of coronary artery I25.10 Active of [place] heart Problem History of cerebrovascular accident Z86.73 [...]
--- OUTSIDE RECORDS SUMMARY | 2019-01-01 11:15 | XMS REPORT ---
[...] Atherosclerosis of coronary artery I25.10 Active of [place] heart Problem History of cerebrovascular accident Z86.73 [...] Atherosclerosis of coronary artery I25.10 Active of [place] heart Problem Dizziness R42 Active Assessment Low [...] Status Dosage System Date Date Promethazine HCl [facility] 18806254987 25 MG/ML Active 1 ml as Injection needed every 6 hrs Loratadine [facility] 37280026794 10 MG Orally Active 1 tablet Once a day Furosemide [facility] 32551432731 20 MG Orally Active 1 tablet Once a day Trelegy Ellipta [facility] 99733338555 100-62.5-25 Active 1 puff MCG/INH Inhalation Once a day Venlafaxine HCl [facility] 26685755332 75 MG Active TAKE ONE ER CAPSULE BY MOUTH EVERY DAY Synthroid [facility] 74040610340 50 MCG Orally Active 1 tablet on Once a day an empty stomach in the morning Levothyroxine [facility] 79448649042 50 MCG Active TAKE 1 TABLET Sodium BY MOUTH EVERY DAY IN THE MORNING Venlafaxine HCl [facility] 72900372845 75 MG Active TAKE ONE ER CAPSULE BY MOUTH EVERY DAY Clopidogrel [facility] 18530302608 75 MG Orally Active 1 tablet Bisulfate Once a day Triamcinolone [facility] 08008481089 0.1 % May 19, Active 1 application Acetonide Externally 2018 to affected Twice a day area Nystatin [facility] 98327124062 386502 UNIT/ML August Active 4 ml Mouth/Throat 25, Four times a 2018 day Sulfamethoxazole- [facility] 17208434232 800-160 MG November Active 1 tablet Trimethoprim Orally Twice a 13, 23, day 2018 2018 ProAir HFA [facility] 39796326074 108 (90 Base) Active 2 puffs as MCG/ACT needed Inhalation every 6 hrs Aspirin [facility] 62395735727 81 MG Active TAKE 1 TABLET BY MOUTH EVERY DAY Simvastatin [facility] 10412176995 40 MG Orally Active 1 tablet in Once a day the evening Atenolol [facility] 90855430862 100 MG PO Once Active TAKE 1 TABLET daily BY MOUTH EVERY DAY Simvastatin [facility] 28686300376 40 MG Orally Active 1 tablet in Once a day the evening Aspirin [facility] 81599896472 81 MG Active TAKE 1 TABLET BY MOUTH EVERY DAY Nexium [facility] 99603923538 40 MG Active TAKE ONE CAPSULE BY MOUTH EVERY DAY Nasonex [facility] 59406675751 50 MCG/ACT Active 2 sprays in Nasally Once a each nostril day Hydrocodone-Aceta [facility] 70868277707 5-325 MG Active 1 tablet as minophen Orally every 6 needed hrs Atenolol [facility] 83710791139 100 MG PO Once Active TAKE 1 TABLET daily BY MOUTH EVERY DAY Vitamin B12 [facility] 35090547275 1000 MCG Active 1 tablet Orally Once a day Hydrocortisone [facility] 94002094580 1 % Externally May 13, Active 1 application Acetate Twice a day 2017 to affected area Nexium [facility] 11493243942 40 MG Active TAKE ONE CAPSULE BY MOUTH EVERY DAY Results No Known Results Summary Purpose eClinicalWorks Submission
--- OUTSIDE RECORDS SUMMARY | 2019-01-01 11:15 | XMS REPORT ---
[...] Atherosclerosis of coronary artery I25.10 Active of [place] heart Problem History of cerebrovascular accident Z86.73 [...] End Date Status Dosage System Date Nystatin [facility] 42640695826 018667 UNIT/ML September 14 Active 4 ml Mouth/Throat 2019 Four times a day Bactrim DS ND 87339010030 800-160 MG September 14September Active 1 tablet Orally Twice a 2019 2018 day Macrobid [facility] 74182169631 100 MG Orally September 10August Inactive 1 capsule every 12 hrs 2018 with food Results No Known Results Summary Purpose eClinicalWorks Submission
--- OUTSIDE RECORDS SUMMARY | 2019-01-01 11:15 | XMS REPORT ---
[...] Atherosclerosis of coronary artery I25.10 Active of [place] heart Problem History of cerebrovascular accident Z86.73 [...]
--- OUTSIDE RECORDS SUMMARY | 2019-01-01 11:15 | XMS REPORT ---
:1955 Author Organization eClinicalWorks Care Team Providers Name Role Phone Tonio Miller Provider Role Unavailable Allergies, Adverse Reactions, Alerts Substance Reaction Event Type Metoclopramide HCl Info Not Available Drug Allergy Amoxicillin Info Not Available Drug Allergy Problems Problem Type Condition Code Onset Dates Condition Status Assessment Atherosclerosis of coronary artery I25.10 Active of [place] heart Assessment Stented coronary artery Z95.5 Active [...] Atherosclerosis of coronary artery I25.10 Active of [place] heart Problem History of cerebrovascular accident Z86.73 [...] Status Dosage System Date Date Nexium NDC 00768928429 40 MG Active TAKE ONE CAPSULE BY MOUTH EVERY DAY Ultram [facility] 17869752344 50 MG Orally August Inactive 1 tablet as every 6 hrs 05, needed 2018 Venlafaxine HCl ND 03862906634 75 MG Active TAKE ONE ER CAPSULE BY MOUTH EVERY DAY Synthroid ND 70619833803 50 MCG Orally Active 1 tablet on Once a day an empty stomach in the morning Loratadine [facility] 23590491455 10 MG Orally Active 1 tablet Once a day Triamcinolone [facility] 66578111395 0.1 % May 19, Active 1 Acetonide Externally 2017 application Twice a day to affected area Trelegy Ellipta [facility] 84106700752 100-62.5-25 Active 1 puff MCG/INH Inhalation Once a day Atenolol ND 25538861566 100 MG PO Once Active TAKE 1 daily TABLET BY MOUTH EVERY DAY Hydrocodone-Acet [facility] 91390875768 5-325 MG Active 1 tablet as aminophen Orally every 6 needed hrs Hydrocortisone [facility] 19905411245 1 % Externally May 13, Active 1 Acetate Twice a day 2017 application to affected area Promethazine HCl [facility] 38114272113 25 MG/ML Active 1 ml as Injection needed every 6 hrs Aspirin ND 81398580080 81 MG Active TAKE 1 TABLET BY MOUTH EVERY DAY Atenolol ND 66444689348 100 MG PO Once Active TAKE 1 daily TABLET BY MOUTH EVERY DAY ProAir HFA [facility] 16388837349 108 (90 Base) Active 2 puffs as MCG/ACT needed Inhalation every 6 hrs Clopidogrel ND 90104264764 75 MG Orally Active 1 tablet Bisulfate Once a day Simvastatin ND 47727456386 40 MG Orally Active 1 tablet in Once a day the evening Aspirin ND 28622175233 81 MG Active TAKE 1 TABLET BY MOUTH EVERY DAY Nexium [facility] 74253999221 40 MG Active TAKE ONE CAPSULE BY MOUTH EVERY DAY Furosemide ND 82497163066 20 MG Orally Active 1 tablet Once a day Nasonex ND 38322648422 50 MCG/ACT Active 2 sprays in Nasally Once a each nostril day Vitamin B12 [facility] 77495133737 1000 MCG Active 1 tablet Orally Once a day Venlafaxine HCl [facility] 64884190127 75 MG Active TAKE ONE ER CAPSULE BY MOUTH EVERY DAY Results No Known Results Summary Purpose eClinicalWorks Submission
--- OUTSIDE RECORDS SUMMARY | 2019-01-01 11:15 | XMS REPORT ---
[...] Atherosclerosis of coronary artery I25.10 Active of [place] heart Problem History of cerebrovascular accident Z86.73 [...] End Date Status Dosage System Date Macrobid [facility] 53341648647 100 MG Orally September 10September 15, Active 1 capsule every 12 hrs 2018 2018 with food Results No Known Results Summary Purpose eClinicalWorks Submission
--- OUTSIDE RECORDS SUMMARY | 2019-01-01 11:16 | XMS REPORT ---
[...] Atherosclerosis of coronary artery I25.10 Active of [place] heart Problem History of cerebrovascular accident Z86.73 [...] Status Dosage System Date Date Venlafaxine HCl [facility] 79485420247 75 MG Active TAKE ONE ER CAPSULE BY MOUTH EVERY DAY Hydrocodone-Aceta ND 71217136839 5-325 MG Active 1 tablet as minophen Orally every 6 needed hrs Hydrocortisone ND 75814251027 1 % Externally May 13, Active 1 application Acetate Twice a day 2017 to affected area Nystatin ND 73087369783 305880 UNIT/ML August Active 4 ml Mouth/Throat 25, Four times a 2019 day Aspirin [facility] 37783648910 81 MG Active TAKE 1 TABLET BY MOUTH EVERY DAY Trelegy Ellipta [facility] 91730417322 100-62.5-25 Active 1 puff MCG/INH Inhalation Once a day Synthroid ND 66633126771 50 MCG Orally Active 1 tablet on Once a day an empty stomach in the morning Promethazine HCl [facility] 37795118571 25 MG/ML Active 1 ml as Injection needed every 6 hrs Triamcinolone [facility] 00331115739 0.1 % May 19, Active 1 application Acetonide Externally 2018 to affected Twice a day area Nexium [facility] 76821254055 40 MG Active TAKE ONE CAPSULE BY MOUTH EVERY DAY Levothyroxine [facility] 07116933938 50 MCG Active TAKE 1 TABLET Sodium BY MOUTH EVERY DAY IN THE MORNING Furosemide [facility] 10155581751 20 MG Orally Active 1 tablet Once a day Aspirin [facility] 27116817050 81 MG Active TAKE 1 TABLET BY MOUTH EVERY DAY Atenolol [facility] 60177632593 100 MG PO Once Active TAKE 1 TABLET daily BY MOUTH EVERY DAY Simvastatin [facility] 60247836037 40 MG Orally Active 1 tablet in Once a day the evening Nasonex [facility] 09982177436 50 MCG/ACT Active 2 sprays in Nasally Once a each nostril day Vitamin B12 [facility] 14295742652 1000 MCG Active 1 tablet Orally Once a day ProAir HFA [facility] 59989756720 108 (90 Base) Active 2 puffs as MCG/ACT needed Inhalation every 6 hrs Clopidogrel [facility] 70039620517 75 MG Orally Active 1 tablet Bisulfate Once a day Venlafaxine HCl [facility] 23462659540 75 MG Active TAKE ONE ER CAPSULE BY MOUTH EVERY DAY Loratadine [facility] 01265009601 10 MG Orally Active 1 tablet Once a day Nexium [facility] 15512904045 40 MG Active TAKE ONE CAPSULE BY MOUTH EVERY DAY Sulfamethoxazole- [facility] 78955915839 800-160 MG November Active 1 tablet Trimethoprim Orally Twice a , , day 2018 2018 Results No Known Results Summary Purpose eClinicalWorks Submission
--- OUTSIDE RECORDS SUMMARY | 2019-01-01 11:16 | XMS REPORT ---
[...] Atherosclerosis of coronary artery I25.10 Active of [place] heart Problem History of cerebrovascular accident Z86.73 [...]
[2019-01-01] MEDS ORDERED: ONDANSETRON 4 MG (ODT) TAB ONE (12:09)
--- NOTE | 2019-01-01 12:39 | EDPHYS ---
Physician Documentation [facility] Name: Toshia Barone Age: 63 yrs Sex: Female : 1955 Arrival Date: 01/01/2019 Time: 11:12 Bed 14 Private MD: ED Physician Nando Andres HPI: 01/01 12:10 This 63 yrs old Female presents to ER via Ambulatory with complaints of pm1 Vomiting. 12:10 The patient presents to the emergency department with vomiting. pm1 12:10 Onset: The symptoms/episode began/occurred 6 day(s) ago. Possible causes: UTI. The pm1 symptoms are aggravated by food , The symptoms are alleviated by Zofran but has not filled her prescription from yesterday's ER visit. Associated signs and symptoms: Pertinent positives: vomiting, Pertinent negatives: abdominal pain, dysuria, fever. Severity of symptoms: in the emergency department the symptoms are worse. The patient has been recently seen at the [facility] Emergency Department, yesterday, for similar complaints labs were performed, CT scan was performed, was given a prescription for pain medications, was given a prescription for an antiemetic, but did not fill her prescriptions. Historical: - Allergies: 11:35 PENICILLINS; la1 11:35 Reglan; la1 11:35 Ritalin; la1 11:35 methylphenidate HCl; la1 - PMHx: 11:35 B12 deficiency; CHF; COPD; CVA; DVT; fatty liver; GERD; Hyperlipidemia; Hypertension; la1 Hypothyroidism; Kidney stones; Myocardial infarction; Pancreatitis; TIA; - Immunization history:: Adult Immunizations up to date. - Social history:: Smoking status: Patient/guardian denies using tobacco. - Ebola Screening: : No symptoms or risks identified at this time. ROS: 12:10 Constitutional: Negative for fever, chills, and weight loss, Eyes: Negative for injury, pm1 pain, redness, and discharge, ENT: Negative for injury, pain, and discharge, Neck: Negative for injury, pain, and swelling, Cardiovascular: Negative for chest pain, palpitations, and edema, Respiratory: Negative for shortness of breath, cough, wheezing, and pleuritic chest pain, Back: Negative for injury and pain. 12:10 : Negative for injury, bleeding, discharge, and swelling, MS/Extremity: Negative for injury and deformity, Skin: Negative for injury, rash, and discoloration, Neuro: Negative for headache, weakness, numbness, tingling, and seizure. 12:10 Abdomen/GI: Positive for nausea and vomiting, Negative for abdominal pain, diarrhea, constipation. Exam: 12:10 Constitutional: This is a well developed, well nourished patient who is awake, alert, pm1 and in no acute distress. Head/Face: Normocephalic, atraumatic. Neck: Trachea midline, no thyromegaly or masses palpated, and no cervical lymphadenopathy. Supple, full range of motion without nuchal rigidity, or vertebral point tenderness. No Meningismus. Chest/axilla: Normal chest wall appearance and motion. Nontender with no deformity. No lesions are appreciated. Cardiovascular: Regular rate and rhythm with a normal S1 and S2. No gallops, murmurs, or rubs. Normal PMI, no JVD. No pulse deficits. Respiratory: Lungs have equal breath sounds bilaterally, clear to auscultation and percussion. No rales, rhonchi or wheezes noted. No increased work of breathing, no retractions or nasal flaring. Abdomen/GI: Soft, non-tender, with normal bowel sounds. No distension or tympany. No guarding or rebound. No evidence of tenderness throughout. Back: No spinal tenderness. No costovertebral tenderness. Full range of motion. Skin: Warm, dry with normal turgor. Normal color with no rashes, no lesions, and no evidence of cellulitis. MS/ Extremity: Pulses equal, no cyanosis. Neurovascular intact. Full, normal range of motion. 12:10 Neuro: Orientation: is normal, Motor: is normal, moves all fours. Vital Signs: 11:35 BP 171 / 92; Pulse 65; Resp 16; Temp 97.8; Pulse Ox 98% on R/A; Weight 83.91 kg; Height la1 5 ft. 5 in. (165.10 cm); 12:59 BP 151 / 78; Pulse 62; Resp 18; Pulse Ox 100% on R/A; ae4 11:35 Body Mass Index 30.79 (83.91 kg, 165.10 cm) la1 MDM: 11:46 Patient medically screened. pm1 12:36 ED course: Patient drinking lemon-shoshone-bannock soda after taking Zofran. Patient reports she pm1 still feels a little nauseated and has a preference for Phenergan. Will give patient Phenergan PO in ER and prescription for Phenergan. . 12:36 Data reviewed: vital signs. Data interpreted: Pulse oximetry: on room air is 98 %. pm1 Interpretation: normal. 12:36 Counseling: I had a detailed discussion with the patient and/or guardian regarding: the pm1 historical points, exam findings, and any diagnostic results supporting the discharge/admit diagnosis, lab results, the need for outpatient follow up, to return to the emergency department if symptoms worsen or persist or if there are any questions or concerns that arise at home. 01/01 11:51 Order name: Flu; Complete Time: 12:33 pm1 01/01 11:51 Order name: PO challenge; Complete Time: 12:58 pm1 Administered Medications: 11:56 Drug: Zofran 4 mg Route: PO; tw2 12:58 Follow up: Response: Nausea is decreased ae4 12:52 Drug: Phenergan 25 mg Route: PO; ae4 12:58 Follow up: Response: Medication administered at discharge.; Patient states she has a ae4 ride a phone. Point of Care Testing: Blood Glucose: 11:51 Blood Glucose: 76 mg/dL; tw2 11:51 per Arun Obregon tw2 Ranges: Critical Glucose Levels:Adult <50 mg/dl or >400 mg/dl <40 mg/dl or >180 mg/dl Disposition: 15:05 Co-signature as Attending Physician, Nando Andres MD. rn Disposition: 01/01/19 12:38 Discharged to Home. Impression: Nausea and vomiting. - Condition is Stable. - Discharge Instructions: Nausea and Vomiting, Adult. - Prescriptions for promethazine 25 mg Oral Tablet - take 1 tablet by ORAL route every 6 hours As needed; 20 tablet. - Medication Reconciliation Form, Thank You Letter, Antibiotic Education, Prescription Opioid Use form. - Follow up: Emergency Department; When: As needed; Reason: Worsening of condition. Follow up: Private Physician; When: 2 - 3 days; Reason: Recheck today's complaints, Continuance of care, Re-evaluation by your physician. - Problem is new. - Symptoms have improved. Signatures: Dispatcher [employer] EDMS AndresNando napier MD MD rn Attema, Lee, RN RN la1 Evangelista Sanz, FINANCIAL SERVICES CONSULTANT FINANCIAL SERVICES CONSULTANT pm1 Maribel Rossi RN RN tw2 Vlad Walden RN RN ae4 Corrections: (The following items were deleted from the chart) 13:07 12:38 01/01/2019 12:38 Discharged to Home. Impression: Nausea and vomiting. Condition ae4 is Stable. Forms are Medication Reconciliation Form, Thank You Letter, Antibiotic Education, Prescription Opioid Use. Follow up: Emergency Department; When: As needed; Reason: Worsening of condition. Follow up: Private Physician; When: 2 - 3 days; Reason: Recheck today's complaints, Continuance of care, Re-evaluation by your physician. Problem is new. Symptoms have improved. pm1
--- NOTE | 2019-01-01 12:39 | ER ---
Nurse's Notes [facility] Name: Toshia Barone Age: 63 yrs Sex: Female : 1955 Arrival Date: 01/01/2019 Time: 11:12 Bed 14 Private MD: Diagnosis: Nausea and vomiting Presentation: 01/01 11:34 Presenting complaint: Patient states: Here yesterday for similar sx, when I got home I la1 started vomiting, I cannot hold anything down. I was given an RX for nausea medicine but I did not get it filled. Transition of care: patient was not received from another setting of care. Onset of symptoms was January 01, 2019. Risk Assessment: Do you want to hurt yourself or someone else? Patient reports no desire to harm self or others. Initial Sepsis Screen: Does the patient meet any 2 criteria? No. Patient's initial sepsis screen is negative. Does the patient have a suspected source of infection? No. Patient's initial sepsis screen is negative. Care prior to arrival: None. 11:34 Method Of Arrival: Ambulatory la1 11:34 Acuity: SHARON 3 la1 Triage Assessment: 12:59 General: Appears in no apparent distress. Behavior is calm, cooperative. Pain: Denies ae4 pain. GI: Reports nausea, vomiting. Historical: - Allergies: 11:35 PENICILLINS; la1 11:35 Reglan; la1 11:35 Ritalin; la1 11:35 methylphenidate HCl; la1 - PMHx: 11:35 B12 deficiency; CHF; COPD; CVA; DVT; fatty liver; GERD; Hyperlipidemia; Hypertension; la1 Hypothyroidism; Kidney stones; Myocardial infarction; Pancreatitis; TIA; - Immunization history:: Adult Immunizations up to date. - Social history:: Smoking status: Patient/guardian denies using tobacco. - Ebola Screening: : No symptoms or risks identified at this time. Screenin:59 Abuse screen: Denies threats or abuse. Nutritional screening: No deficits noted. ae4 Tuberculosis screening: No symptoms or risk factors identified. Fall Risk None identified. Assessment: 11:40 Reassessment: Patient states she feels like she has "chills on and off.". General: ae4 Appears in no apparent distress. comfortable, Behavior is cooperative, anxious. Pain: Denies pain. Neuro: Level of Consciousness is awake, alert, obeys commands, Oriented to person, place, time, situation, Appropriate for age. Cardiovascular: Patient's skin is warm and dry. Respiratory: Airway is patent Respiratory effort is even, unlabored, Respiratory pattern is regular, symmetrical. GI: Abdomen is round non-distended, obese, Bowel sounds present X 4 quads. : No signs and/or symptoms were reported regarding the genitourinary system. EENT: No signs and/or symptoms were reported regarding the EENT system. Derm: Skin is dry, Skin is normal, Skin temperature is warm. Musculoskeletal: No signs and/or symptoms reported regarding the musculoskeletal system. 12:30 Reassessment: Patient appears in no apparent distress at this time. Patient denies pain ae4 at this time. Patient states feeling better. Vital Signs: 11:35 BP 171 / 92; Pulse 65; Resp 16; Temp 97.8; Pulse Ox 98% on R/A; Weight 83.91 kg; Height la1 5 ft. 5 in. (165.10 cm); 12:59 BP 151 / 78; Pulse 62; Resp 18; Pulse Ox 100% on R/A; ae4 11:35 Body Mass Index 30.79 (83.91 kg, 165.10 cm) la1 ED Course: 11:12 Patient arrived in ED. as 11:35 Triage completed. la1 11:36 Arm band placed on right wrist. la1 11:42 Evangelista Sanz NP is PHCP. pm1 11:42 Nando Andres MD is Attending Physician. pm1 11:53 Vlad Walden, REZA is Primary Nurse. ae4 12:00 Placed in gown. Bed in low position. Call light in reach. Side rails up X 1. Pulse ox ae4 on. NIBP on. Warm blanket given. 12:10 Flu Sent. tw2 15:00 No provider procedures requiring assistance completed. Patient did not have IV access ae4 during this emergency room visit. Administered Medications: 11:56 Drug: Zofran 4 mg Route: PO; tw2 12:58 Follow up: Response: Nausea is decreased ae4 12:52 Drug: Phenergan 25 mg Route: PO; ae4 12:58 Follow up: Response: Medication administered at discharge.; Patient states she has a ae4 ride a phone. Point of Care Testing: Blood Glucose: 11:51 Blood Glucose: 76 mg/dL; tw2 11:51 per Arun Obregon tw2 Ranges: Intake: Outcome: 12:38 Discharge ordered by MD. pm1 13:00 Discharged to home ambulatory. ae4 13:00 Condition: stable 13:00 Discharge instructions given to patient, Instructed on discharge instructions, follow up and referral plans. Demonstrated understanding of instructions. 13:07 Patient left the ED. ae4 Signatures: Eneida Dalal Lee, RN RN la1 Evangelista Sanz, NATALYA AIRCRAFT ACCESSORIES MECHANIC pm1 Maribel Rossi RN RN tw2 Vlad Walden RN RN ae4
[2019-01-01] MEDS ORDERED: PROMETHAZINE 25 MG TABLET ONE (13:05)
[2019-01-01 14:02] VITALS: TEMP 97.8
[2019-01-01 14:04] VITALS: BP 151/78; O2SAT 100
== END 2019-01-01 13:07 | disposition home or self-care (01) ==
LOC: ER 11:10
DX: R11.2 Nausea with vomiting, unspecified (principal); Z88.0 Allergy status to penicillin; Z88.8 Allergy status to other drugs, medicaments and biological substances
CPT/HCPCS: 82962; 87804; 99284

== ENCOUNTER 2019-01-27 11:52 | Emergency (ER) | payer OTHER ==
--- OUTSIDE RECORDS SUMMARY | 2019-01-27 11:54 | XMS REPORT ---
[...] Atherosclerosis of coronary artery I25.10 Active of [place] heart Problem Simple renal cyst N28.1 Active [...]
--- OUTSIDE RECORDS SUMMARY | 2019-01-27 11:55 | XMS REPORT ---
[...] I25.10 Active of [place] [facility] Assessment Chronic obstructive pulmonary J44.9 Active [...] I25.10 Active of [place] [facility] Problem Simple renal cyst N28.1 Active [...] End Status Dosage System Date Date Ultram [facility] 73537931003 50 MG Orally Active 1 tablet every 6 hrs as needed Synthroid [facility] 76927841740 50 MCG Orally Active 1 tablet Once a day on an empty stomach in the morning Nasonex [facility] 03884806035 50 MCG/ACT Active 2 sprays Nasally Once a in each day nostril Nystatin [facility] [id number] [id number] U/ML Inactive not Mouth/Throat defined Gabapentin [facility] 77438780071 100 MG Orally Inactive 1 capsule Three times a day Nortriptyline [facility] 05272429357 25 MG Orally Inactive 1 capsule HCl Once a day Lorazepam [facility] 73042640375 0.5 MG Orally Inactive 1 tablet every 6 hrs as needed Promethazine HCl [facility] 34551208537 25 MG/ML Active 1 ml as Injection every needed 6 hrs Aspirin [facility] 35227123534 81 MG Active TAKE 1 TABLET BY MOUTH EVERY DAY Venlafaxine HCl [facility] 03358601483 75 MG Active TAKE ONE ER CAPSULE BY MOUTH EVERY DAY Clopidogrel [facility] 19498039673 75 MG Orally Active 1 tablet Bisulfate Once a day Vitamin B12 [facility] 41502495383 1000 MCG Orally Active 1 tablet Once a day Furosemide [facility] 65858119069 20 MG Orally Active 1 tablet Once a day Atenolol [facility] 95129066927 100 MG PO Once Active TAKE 1 daily TABLET BY MOUTH EVERY DAY Trelegy Ellipta [facility] 65485577843 100-62.5-25 Active 1 puff MCG/INH Inhalation Once a day Nexium [facility] 85889366142 40 MG Active TAKE ONE CAPSULE BY MOUTH EVERY DAY Loratadine [facility] 17432605613 10 MG Orally Active 1 tablet Once a day Lipitor [facility] 46927741756 40 MG Orally Active 1 tablet Once a day ProAir HFA [facility] 60059592141 108 (90 Base) Active 2 puffs MCG/ACT as needed Inhalation every 6 hrs Results No Known Results Summary Purpose eClinicalWorks Submission
--- OUTSIDE RECORDS SUMMARY | 2019-01-27 11:55 | XMS REPORT ---
:1955 Author Organization eClinicalWorks Care Team Providers Name Role Phone Sarahy Millerh Provider Role Unavailable Allergies, Adverse Reactions, Alerts Substance Reaction Event Type Metoclopramide HCl Info Not Available Drug Allergy Amoxicillin Info Not Available Drug Allergy Problems Problem Type Condition Code Onset Dates Condition Status Assessment Atherosclerosis of coronary artery I25.10 Active of [place] heart Assessment Stented coronary artery Z95.5 Active [...] Atherosclerosis of coronary artery I25.10 Active of [place] heart Problem Simple renal cyst N28.1 Active [...] End Status Dosage System Date Date Atenolol [facility] 04245683033 100 MG PO Once Active TAKE 1 daily TABLET BY MOUTH EVERY DAY Aspirin [facility] 64831089382 81 MG Active TAKE 1 TABLET BY MOUTH EVERY DAY Synthroid [facility] 92322268979 50 MCG Orally Active 1 tablet Once a day on an empty stomach in the morning Loratadine [facility] 96960227341 10 MG Orally Active 1 tablet Once a day ProAir HFA [facility] 10697583162 108 (90 Base) Active 2 puffs as MCG/ACT needed Inhalation every [address] [facility] 68684925086 40 MG Orally Active 1 tablet Once a day Nexium [facility] 18302014490 40 MG Active TAKE ONE CAPSULE BY MOUTH EVERY DAY Nexium [facility] 47171789895 40 MG Active TAKE ONE CAPSULE BY MOUTH EVERY DAY Aspirin [facility] 78262509175 81 MG Active TAKE 1 TABLET BY MOUTH EVERY DAY Vitamin B12 [facility] 60110027851 1000 MCG Orally Active 1 tablet Once a day Nasonex [facility] 89284556989 50 MCG/ACT Active 2 sprays Nasally Once a in each day nostril Clopidogrel [facility] 82502311641 75 MG Orally Active 1 tablet Bisulfate Once a day Trelegy Ellipta [facility] 90928219665 100-62.5-25 Active 1 puff MCG/INH Inhalation Once a day Promethazine HCl [facility] 47623688893 25 MG/ML Active 1 ml as Injection every needed 6 hrs Venlafaxine HCl [facility] 93667587260 75 MG Active TAKE ONE ER CAPSULE BY MOUTH EVERY DAY Ultram [facility] 35399150710 50 MG Orally Active 1 tablet every 6 hrs as needed Furosemide [facility] 31497763284 20 MG Orally Active 1 tablet Once a day Venlafaxine HCl [facility] 34250461799 75 MG Active TAKE ONE ER CAPSULE BY MOUTH EVERY DAY Results No Known Results Summary Purpose eClinicalWorks Submission
--- OUTSIDE RECORDS SUMMARY | 2019-01-27 11:55 | XMS REPORT ---
[...] Atherosclerosis of coronary artery I25.10 Active of [place] heart Problem Simple renal cyst N28.1 Active [...]
--- OUTSIDE RECORDS SUMMARY | 2019-01-27 11:55 | XMS REPORT ---
[...] Atherosclerosis of coronary artery I25.10 Active of [place] heart Assessment Chronic obstructive pulmonary J44.9 Active [...] Atherosclerosis of coronary artery I25.10 Active of [place] heart Problem Simple renal cyst N28.1 Active [...] End Status Dosage System Date Date Aspirin [facility] 81717020223 81 MG Active TAKE 1 TABLET BY MOUTH EVERY DAY Lipitor [facility] 18961981042 40 MG Orally Active 1 tablet Once a day ProAir HFA [facility] 36479303035 108 (90 Base) Active 2 puffs MCG/ACT as needed Inhalation every 6 hrs Aspirin [facility] 97257564111 81 MG Active TAKE 1 TABLET BY MOUTH EVERY DAY Venlafaxine HCl [facility] 21272510768 75 MG Active TAKE ONE ER CAPSULE BY MOUTH EVERY DAY Venlafaxine HCl [facility] 47971470010 75 MG Active TAKE ONE ER CAPSULE BY MOUTH EVERY DAY Loratadine [facility] 39465578911 10 MG Orally Active 1 tablet Once a day Atenolol [facility] 54345931267 100 MG PO Once Active TAKE 1 daily TABLET BY MOUTH EVERY DAY Nasonex [facility] 45555734464 50 MCG/ACT Active 2 sprays Nasally Once a in each day nostril Promethazine HCl [facility] 05943776591 25 MG/ML Active 1 ml as Injection every needed 6 hrs Ultram [facility] 05727831651 50 MG Orally Active 1 tablet every 6 hrs as needed Trelegy Ellipta [facility] 21365769840 100-62.5-25 Active 1 puff MCG/INH Inhalation Once a day Furosemide [facility] 50938059518 20 MG Orally Active 1 tablet Once a day Nexium [facility] 83988868692 40 MG Active TAKE ONE CAPSULE BY MOUTH EVERY DAY Nexium [facility] 96759442268 40 MG Active TAKE ONE CAPSULE BY MOUTH EVERY DAY Vitamin B12 [facility] 99026480327 1000 MCG Orally Active 1 tablet Once a day Nortriptyline [facility] 96685929754 25 MG Orally Inactive 1 capsule HCl Once a day Synthroid [facility] 97109178171 50 MCG Orally Active 1 tablet Once a day on an empty stomach in the morning Clopidogrel [facility] 83148393353 75 MG Orally Active 1 tablet Bisulfate Once a day Results No Known Results Summary Purpose eClinicalWorks Submission
--- OUTSIDE RECORDS SUMMARY | 2019-01-27 11:56 | XMS REPORT ---
:1955 Author Organization [facility] Address [address] [place] [address] Care Team Providers Name Role Phone Unavailable [...] HIGH.........130-159 mg/dL HIGH.........160-189 mg/dL VERY HIGH.........>/=190 mg/dL [id number] 08:02:00 Test Item Value Reference Range Comments MAGNESIUM (test code=MAG) 2.0 MG/DL 1.6-2.3 LIPID PROFILE (CORONARY RISK)2018-08-01 07:51:00 Test Item Value Reference Range Comments TRIGLYCERIDES (test code=TRIG) 194 MG/DL TRIGLYCERIDES REFERENCE RANGE:Normal: <150 mg/dLBorderline High: 150-199 mg/dLHigh: 200-499 mg/dLVery High: >=500 mg/dL CHOLESTEROL (test code=CHOL) 206 MG/DL <200 HDL CHOLESTEROL (test 59 MG/DL 40-59 code=HDL) LIPOPROTEIN LDL (test MG/DL 0-99 code=LDL) [id number] 07:51:00 Test Item Value Reference Range Comments MAGNESIUM (test code=MAG) 2.0 MG/DL 1.6-2.3 PROTHROMBIN [id number] 07:37:00 Test Item Value Reference Range Comments [...] recurrent systemic embolism. 3.0 - 4.5 PTT [id number] 07:37:00 Test Item Value Reference Range Comments PTT ACTIVATED (test code=APTT) 26.7 SECONDS 22.0-33.0 [id number] 01:26:00 Test Item Value Reference Range Comments TROPONIN-I (test code=TROPI) < 0.012 NG/ML 0.012-0.033 HEPATIC FUNCTION [id number] 18:44:00 Test Item Value Reference Range Comments TOTAL PROTEIN (test code=PROT) 7.2 G/DL 6.3-8.2 ALBUMIN (test code=ALB) 3.6 G/DL 3.5-5.0 BILIRUBIN TOTAL (test code=BILT) 0.9 MG/DL 0.2-1.3 BILIRUBIN DIRECT (test code=BILD) 0.0 MG/DL 0.0-0.3 SGOT/AST (test code=AST) 27 UNITS/L 14-36 SGPT/ALT (test code=ALT) 19 UNITS/L 9-52 ALKALINE PHOSPHATASE (test code=ALKP) 77 UNITS/L 38-126 BASIC METABOLIC [id number] 18:15:00 Test Item Value Reference Range Comments [...] 0.52-1.04 CALCIUM (test code=CA) 8.9 MG/DL 8.4-10.2 [id number] 18:15:00 Test Item Value Reference Range Comments TROPONIN-I (test code=TROPI) < 0.012 NG/ML 0.012-0.033 BASIC METABOLIC [id number] 18:03:00 Test Item Value Reference Range Comments [...] 0.52-1.04 CALCIUM (test code=CA) 8.9 MG/DL 8.4-10.2 [id number] 18:03:00 Test Item Value Reference Range Comments TROPONIN-I (test code=TROPI) NG/ML 0.0-0.045 CBC W/O [id number] 17:39:00 Test Item Value Reference Range Comments [...]
--- OUTSIDE RECORDS SUMMARY | 2019-01-27 11:56 | XMS REPORT ---
:1955 Author Organization eClinicalWorks Care Team Providers Name Role Phone Tonio Miller Provider Role Unavailable Allergies, Adverse Reactions, Alerts Substance Reaction Event Type Metoclopramide HCl Info Not Available Drug Allergy Amoxicillin Info Not Available Drug Allergy Problems Problem Type Condition Code Onset Dates Condition Status Assessment Atherosclerosis of coronary artery I25.10 Active of [place] heart Assessment Stented coronary artery Z95.5 Active [...] coronary artery I25.10 Active of [place] heart Problem History of cerebrovascular accident Z86.73 [...] Status Dosage System Date Date Nexium NDC 05801129978 40 MG Active TAKE ONE CAPSULE BY MOUTH EVERY DAY Ultram [facility] 81988947055 50 MG Orally August Inactive 1 tablet as every 6 hrs 05, needed 2018 Venlafaxine HCl ND 46533336813 75 MG Active TAKE ONE ER CAPSULE BY MOUTH EVERY DAY Synthroid ND 03643135696 50 MCG Orally Active 1 tablet on Once a day an empty stomach in the morning Loratadine [facility] 82926139335 10 MG Orally Active 1 tablet Once a day Triamcinolone [facility] 26366847398 0.1 % May 19, Active 1 Acetonide Externally 2017 application Twice a day to affected area Trelegy Ellipta [facility] 07078855936 100-62.5-25 Active 1 puff MCG/INH Inhalation Once a day Atenolol ND 80318089518 100 MG PO Once Active TAKE 1 daily TABLET BY MOUTH EVERY DAY Hydrocodone-Acet [facility] 65255107324 5-325 MG Active 1 tablet as aminophen Orally every 6 needed hrs Hydrocortisone [facility] 95276121749 1 % Externally May 13, Active 1 Acetate Twice a day 2017 application to affected area Promethazine HCl [facility] 60344952927 25 MG/ML Active 1 ml as Injection needed every 6 hrs Aspirin ND 07879725973 81 MG Active TAKE 1 TABLET BY MOUTH EVERY DAY Atenolol ND 36260300398 100 MG PO Once Active TAKE 1 daily TABLET BY MOUTH EVERY DAY ProAir HFA [facility] 77415716293 108 (90 Base) Active 2 puffs as MCG/ACT needed Inhalation every 6 hrs Clopidogrel ND 42633266990 75 MG Orally Active 1 tablet Bisulfate Once a day Simvastatin ND 14079417872 40 MG Orally Active 1 tablet in Once a day the evening Aspirin ND 77961466389 81 MG Active TAKE 1 TABLET BY MOUTH EVERY DAY Nexium [facility] 98973658316 40 MG Active TAKE ONE CAPSULE BY MOUTH EVERY DAY Furosemide ND 98037442276 20 MG Orally Active 1 tablet Once a day Nasonex ND 79256128798 50 MCG/ACT Active 2 sprays in Nasally Once a each nostril day Vitamin B12 [facility] 46909560746 1000 MCG Active 1 tablet Orally Once a day Venlafaxine HCl [facility] 37775239518 75 MG Active TAKE ONE ER CAPSULE BY MOUTH EVERY DAY Results No Known Results Summary Purpose eClinicalWorks Submission
--- OUTSIDE RECORDS SUMMARY | 2019-01-27 11:56 | XMS REPORT ---
[...] Atherosclerosis of coronary artery I25.10 Active of [place] heart Problem Simple renal cyst N28.1 Active [...] Status Dosage System Date Date Azithromycin ND 07682552987 250 MG Orally Jul 16Jun Active 2 tablets on Once a day 2018, the first 2018 day, then 1 tablet daily for 4 days Simvastatin ND 43091486805 40 MG Orally May 27, Active 1 tablet in Once a day 2018 the evening ProAir HFA [facility] 10746183918 108 (90 Base) Active 2 puffs as MCG/ACT needed Inhalation every 6 hrs Trelegy Ellipta [facility] 79405296773 100-62.5-25 Active 1 puff MCG/INH Inhalation Once a day Venlafaxine HCl [facility] 02951890568 75 MG Active TAKE ONE ER CAPSULE BY MOUTH EVERY DAY Loratadine [facility] 83014180682 10 MG Orally Active 1 tablet Once a day Synthroid ND 39962427037 50 MCG Orally Active 1 tablet on Once a day an empty stomach in the morning Venlafaxine HCl [facility] 57592111456 75 MG Active TAKE ONE ER CAPSULE BY MOUTH EVERY DAY Clopidogrel [facility] 24105568072 75 MG Orally Active 1 tablet Bisulfate Once a day Hydrocortisone ND 42578699939 1 % Externally May 13, Active 1 application Acetate Twice a day 2017 to affected area Aspirin ND 28697480027 81 MG Active TAKE 1 TABLET BY MOUTH EVERY DAY Promethazine HCl [facility] 36704056837 25 MG/ML Active 1 ml as Injection needed every 6 hrs Nasonex [facility] 06872687256 50 MCG/ACT Active 2 sprays in Nasally Once a each nostril day Nexium [facility] 72006704520 40 MG Active TAKE ONE CAPSULE BY MOUTH EVERY DAY Atenolol ND 80814024534 100 MG PO Once Active TAKE 1 TABLET daily BY MOUTH EVERY DAY Ultram [facility] 37847690597 50 MG Orally Active 1 tablet as every 6 hrs needed Triamcinolone ND 70620582058 0.1 % May 19, Active 1 application Acetonide Externally 2017 to affected Twice a day area Furosemide ND 40437603203 20 MG Orally Active 1 tablet Once a day Aspirin [facility] 56703317073 81 MG Active TAKE 1 TABLET BY MOUTH EVERY DAY Vitamin B12 [facility] 63843839691 1000 MCG Active 1 tablet Orally Once a day Results Name Result Date Reference Range Unit Abnormality Flag FLU TEST ----A Neg [id number] ----B Neg [id number] Summary Purpose eClinicalWorks Submission
--- OUTSIDE RECORDS SUMMARY | 2019-01-27 11:56 | XMS REPORT ---
[...] Atherosclerosis of coronary artery I25.10 Active of [place] heart Problem History of cerebrovascular accident Z86.73 [...]
--- OUTSIDE RECORDS SUMMARY | 2019-01-27 11:56 | XMS REPORT ---
[...] Atherosclerosis of coronary artery I25.10 Active of [place] heart Problem History of cerebrovascular accident Z86.73 [...] End Date Status Dosage System Date Macrobid [facility] 05274570747 100 MG Orally September 10September 15, Active 1 capsule every 12 hrs 2018 2018 with food Results No Known Results Summary Purpose eClinicalWorks Submission
--- OUTSIDE RECORDS SUMMARY | 2019-01-27 11:56 | XMS REPORT ---
[...] Atherosclerosis of coronary artery I25.10 Active of [place] heart Problem History of cerebrovascular accident Z86.73 [...] End Date Status Dosage System Date Nystatin [facility] 57989590257 217231 UNIT/ML September 14 Active 4 ml Mouth/Throat 2019 Four times a day Bactrim DS ND 07032257900 800-160 MG September 14September Active 1 tablet Orally Twice a 2019 2018 day Macrobid [facility] 71269342723 100 MG Orally September 10August Inactive 1 capsule every 12 hrs 2018 with food Results No Known Results Summary Purpose eClinicalWorks Submission
--- OUTSIDE RECORDS SUMMARY | 2019-01-27 11:56 | XMS REPORT ---
[...] Atherosclerosis of coronary artery I25.10 Active of [place] heart Problem Simple renal cyst N28.1 Active [...]
--- OUTSIDE RECORDS SUMMARY | 2019-01-27 11:56 | XMS REPORT ---
[...] Atherosclerosis of coronary artery I25.10 Active of [place] heart Problem History of cerebrovascular accident Z86.73 [...]
--- OUTSIDE RECORDS SUMMARY | 2019-01-27 11:56 | XMS REPORT ---
[...] End Status Dosage System Date Date Hydrocortisone [facility] 35356316273 1 % Externally May 13, Active 1 application Acetate Twice a day 2017 to affected area Trelegy Ellipta [facility] 44002430524 100-62.5-25 Active 1 puff MCG/INH Inhalation Once a day Nasonex ND 80689698276 50 MCG/ACT Active 2 sprays in Nasally Once a each nostril day Aspirin ND 91974511191 81 MG Active TAKE 1 TABLET BY MOUTH EVERY DAY Aspirin [facility] 85579956860 81 MG Active TAKE 1 TABLET BY MOUTH EVERY DAY Atenolol ND 80894006684 100 MG PO Once Active TAKE 1 TABLET daily BY MOUTH EVERY DAY ProAir HFA [facility] 32398597070 108 (90 Base) Active 2 puffs as MCG/ACT needed Inhalation every 6 hrs Clopidogrel [facility] 88067490437 75 MG Orally Active 1 tablet Bisulfate Once a day Hydrocodone-Aceta [facility] 51724241538 5-325 MG Active 1 tablet as minophen Orally every 6 needed hrs Furosemide ND 45868492515 20 MG Orally Active 1 tablet Once a day Simvastatin [facility] 35252365406 40 MG Orally Active 1 tablet in Once a day the evening Vitamin B12 [facility] 48178792329 1000 MCG Active 1 tablet Orally Once a day Nystatin [facility] 41118151343 883099 UNIT/ML August Active 4 ml Mouth/Throat 25, Four times a 2018 day Synthroid [facility] 56755245574 50 MCG Orally Active 1 tablet on Once a day an empty stomach in the morning Triamcinolone [facility] 60531842724 0.1 % May 19, Active 1 application Acetonide Externally 2017 to affected Twice a day area Nexium [facility] 61935249166 40 MG Active TAKE ONE CAPSULE BY MOUTH EVERY DAY Atenolol ND 97556126829 100 MG PO Once Active TAKE 1 TABLET daily BY MOUTH EVERY DAY Loratadine [facility] 95350482311 10 MG Orally Active 1 tablet Once a day Promethazine HCl [facility] 12092273295 25 MG/ML Active 1 ml as Injection needed every 6 hrs Venlafaxine HCl [facility] 12426754789 75 MG Active TAKE ONE ER CAPSULE BY MOUTH EVERY DAY Results No Known Results Summary Purpose eClinicalWorks Submission
--- OUTSIDE RECORDS SUMMARY | 2019-01-27 11:57 | XMS REPORT ---
[...] Atherosclerosis of coronary artery I25.10 Active of [place] heart Problem History of cerebrovascular accident Z86.73 [...] Atherosclerosis of coronary artery I25.10 Active of [place] heart Problem Dizziness R42 Active Assessment Low [...] Status Dosage System Date Date Promethazine HCl [facility] 03645806055 25 MG/ML Active 1 ml as Injection needed every 6 hrs Loratadine [facility] 54341014967 10 MG Orally Active 1 tablet Once a day Furosemide [facility] 75119570338 20 MG Orally Active 1 tablet Once a day Trelegy Ellipta [facility] 10376498096 100-62.5-25 Active 1 puff MCG/INH Inhalation Once a day Venlafaxine HCl [facility] 79536222875 75 MG Active TAKE ONE ER CAPSULE BY MOUTH EVERY DAY Synthroid [facility] 77832214262 50 MCG Orally Active 1 tablet on Once a day an empty stomach in the morning Levothyroxine [facility] 57062643674 50 MCG Active TAKE 1 TABLET Sodium BY MOUTH EVERY DAY IN THE MORNING Venlafaxine HCl [facility] 73804162295 75 MG Active TAKE ONE ER CAPSULE BY MOUTH EVERY DAY Clopidogrel [facility] 60981322088 75 MG Orally Active 1 tablet Bisulfate Once a day Triamcinolone [facility] 30112761481 0.1 % May 19, Active 1 application Acetonide Externally 2018 to affected Twice a day area Nystatin [facility] 33396429860 258458 UNIT/ML August Active 4 ml Mouth/Throat 25, Four times a 2018 day Sulfamethoxazole- [facility] 39802930152 800-160 MG November Active 1 tablet Trimethoprim Orally Twice a 13, 23, day 2018 2018 ProAir HFA [facility] 83242808767 108 (90 Base) Active 2 puffs as MCG/ACT needed Inhalation every 6 hrs Aspirin [facility] 31156161291 81 MG Active TAKE 1 TABLET BY MOUTH EVERY DAY Simvastatin [facility] 50954446309 40 MG Orally Active 1 tablet in Once a day the evening Atenolol [facility] 24399033318 100 MG PO Once Active TAKE 1 TABLET daily BY MOUTH EVERY DAY Simvastatin [facility] 55617965831 40 MG Orally Active 1 tablet in Once a day the evening Aspirin [facility] 62148767490 81 MG Active TAKE 1 TABLET BY MOUTH EVERY DAY Nexium [facility] 60645234610 40 MG Active TAKE ONE CAPSULE BY MOUTH EVERY DAY Nasonex [facility] 50619772757 50 MCG/ACT Active 2 sprays in Nasally Once a each nostril day Hydrocodone-Aceta [facility] 85967110890 5-325 MG Active 1 tablet as minophen Orally every 6 needed hrs Atenolol [facility] 47654289505 100 MG PO Once Active TAKE 1 TABLET daily BY MOUTH EVERY DAY Vitamin B12 [facility] 16318709188 1000 MCG Active 1 tablet Orally Once a day Hydrocortisone [facility] 00732026807 1 % Externally May 13, Active 1 application Acetate Twice a day 2017 to affected area Nexium [facility] 21879129974 40 MG Active TAKE ONE CAPSULE BY MOUTH EVERY DAY Results No Known Results Summary Purpose eClinicalWorks Submission
--- OUTSIDE RECORDS SUMMARY | 2019-01-27 11:57 | XMS REPORT ---
[...] Atherosclerosis of coronary artery I25.10 Active of [place] heart Problem History of cerebrovascular accident Z86.73 [...] Status Dosage System Date Date Venlafaxine HCl [facility] 92062200122 75 MG Active TAKE ONE ER CAPSULE BY MOUTH EVERY DAY Hydrocodone-Aceta ND 98392835711 5-325 MG Active 1 tablet as minophen Orally every 6 needed hrs Hydrocortisone ND 05223372441 1 % Externally May 13, Active 1 application Acetate Twice a day 2017 to affected area Nystatin ND 66657793940 543677 UNIT/ML August Active 4 ml Mouth/Throat 25, Four times a 2019 day Aspirin [facility] 95797083795 81 MG Active TAKE 1 TABLET BY MOUTH EVERY DAY Trelegy Ellipta [facility] 13500250389 100-62.5-25 Active 1 puff MCG/INH Inhalation Once a day Synthroid ND 05060399037 50 MCG Orally Active 1 tablet on Once a day an empty stomach in the morning Promethazine HCl [facility] 42785923992 25 MG/ML Active 1 ml as Injection needed every 6 hrs Triamcinolone [facility] 61834477373 0.1 % May 19, Active 1 application Acetonide Externally 2018 to affected Twice a day area Nexium [facility] 72278833811 40 MG Active TAKE ONE CAPSULE BY MOUTH EVERY DAY Levothyroxine [facility] 69713804361 50 MCG Active TAKE 1 TABLET Sodium BY MOUTH EVERY DAY IN THE MORNING Furosemide [facility] 06422809734 20 MG Orally Active 1 tablet Once a day Aspirin [facility] 47357938525 81 MG Active TAKE 1 TABLET BY MOUTH EVERY DAY Atenolol [facility] 48411183352 100 MG PO Once Active TAKE 1 TABLET daily BY MOUTH EVERY DAY Simvastatin [facility] 72411764526 40 MG Orally Active 1 tablet in Once a day the evening Nasonex [facility] 87073743705 50 MCG/ACT Active 2 sprays in Nasally Once a each nostril day Vitamin B12 [facility] 24964508201 1000 MCG Active 1 tablet Orally Once a day ProAir HFA [facility] 53932095118 108 (90 Base) Active 2 puffs as MCG/ACT needed Inhalation every 6 hrs Clopidogrel [facility] 03266463641 75 MG Orally Active 1 tablet Bisulfate Once a day Venlafaxine HCl [facility] 77044796684 75 MG Active TAKE ONE ER CAPSULE BY MOUTH EVERY DAY Loratadine [facility] 01618617355 10 MG Orally Active 1 tablet Once a day Nexium [facility] 47939466336 40 MG Active TAKE ONE CAPSULE BY MOUTH EVERY DAY Sulfamethoxazole- [facility] 68879070404 800-160 MG November Active 1 tablet Trimethoprim Orally Twice a , , day 2018 2018 Results No Known Results Summary Purpose eClinicalWorks Submission
--- NOTE | 2019-01-27 13:02 | ER ---
Nurse's Notes [facility] Name: Toshia Barone Age: 64 yrs Sex: Female : 1955 Arrival Date: 01/27/2019 Time: 11:55 Bed 6 Private MD: Diagnosis: Dyspnea;Weakness Presentation: 01/27 11:53 Presenting complaint: Patient states: Reports SOB upon exertion with mild tightness in aj chest. Patient also reports face swelling in AM for 3 weeks. Seen by PCP [facility] but did not mention these symptoms to PCP during appointment. Transition of care: patient was not received from another setting of care. Onset of symptoms was January 04, 2019. Risk Assessment: Do you want to hurt yourself or someone else? Patient reports no desire to harm self or others. Initial Sepsis Screen: Does the patient meet any 2 criteria? No. Patient's initial sepsis screen is negative. Does the patient have a suspected source of infection? No. Patient's initial sepsis screen is negative. Care prior to arrival: None. 11:53 Method Of Arrival: Ambulatory 11:53 Acuity: SHARON 3 aj Triage Assessment: 11:56 General: Appears in no apparent distress. comfortable, Behavior is calm, cooperative, aj appropriate for age. Pain: Denies pain. Neuro: Level of Consciousness is awake, alert, obeys commands, Oriented to person, place, time, situation, Appropriate for age. Cardiovascular: Capillary refill < 3 seconds in bilateral fingers Patient's skin is warm and dry. Respiratory: Reports shortness of breath on exertion Airway is patent Respiratory effort is even, unlabored, Respiratory pattern is regular, symmetrical, Onset: The symptoms/episode began/occurred gradually, the patient has mild shortness of breath. Derm: Skin is intact, is healthy with good turgor, Skin is pink, warm \T\ dry. normal. Historical: - Allergies: 11:56 methylphenidate HCl; aj 11:56 PENICILLINS; aj 11:56 Reglan; aj 11:56 Ritalin; aj - Home Meds: 11:56 aspirin 81 mg Oral TbEC 1 tab once daily [Active]; atenolol 100 mg Oral tab 1 tab once aj daily [Active]; atorvastatin 40 mg Oral tab 1 tab nightly [Active]; Eliquis 2.5 mg Oral tab 1 tab 2 times per day [Active]; gabapentin 300 mg Oral cap 1 cap 3 times per day [Active]; isosorbide mononitrate 30 mg Oral Tb24 1 tab once daily [Active]; levothyroxine 50 mcg tab 1 tab once daily [Active]; Nexium 40 mg Oral cpDR 1 cap once daily [Active]; ProAir HFA 90 mcg/actuation inhalation HFAA 1 puff every 4 hours [Active]; promethazine 12.5 mg Oral tab 1 tab as needed [Active]; spironolactone 25 mg Oral tab 1 tab 2 times per day [Active]; Stool Softener 100 mg Oral cap 1 cap once daily [Active]; tramadol 50 mg Oral tab 2 tabs every 6 hours [Active]; Vitamin D Oral 77057 unit Q WEEK [Active]; - PMHx: 11:56 B12 deficiency; CHF; COPD; CVA; DVT; fatty liver; GERD; Hyperlipidemia; Hypertension; aj Hypothyroidism; Kidney stones; Myocardial infarction; Pancreatitis; TIA; - Immunization history:: Adult Immunizations up to date. - Social history:: Smoking status: Patient/guardian denies using tobacco. - Ebola Screening: : Patient negative for fever greater than or equal to 101.5 degrees Fahrenheit, and additional compatible Ebola Virus Disease symptoms Patient denies exposure to infectious person Patient denies travel to an Ebola-affected area in the 21 days before illness onset No symptoms or risks identified at this time. Screenin:20 Abuse screen: Denies threats or abuse. Denies injuries from another. Nutritional sv screening: No deficits noted. Tuberculosis screening: No symptoms or risk factors identified. Fall Risk None identified. Assessment: 13:20 General: Appears in no apparent distress. comfortable, well developed, Behavior is sv calm, cooperative, appropriate for age. Pain: Complains of pain in chest Pain does not radiate. Pain currently is 5 out of 10 on a pain scale. Neuro: Level of Consciousness is awake, alert, obeys commands, Oriented to person, place, time, situation, Moves all extremities. Full function Gait is steady, Speech is normal. Cardiovascular: Patient's skin is warm and dry. Rhythm is sinus rhythm. Respiratory: Reports shortness of breath on exertion Airway is patent Respiratory effort is even, unlabored, Respiratory pattern is regular, symmetrical. GI: Patient currently denies nausea, vomiting. Derm: Skin is pink, warm \T\ dry. Musculoskeletal: Range of motion: intact in all extremities. 13:40 Reassessment: pt requesting pain medication and something to eat due to hypoglycemia, sg notified, pt provided with turkey sandwich baked chips and a diet soda, pt states no nausea/vomiting at this time. Awaiting an order for pain medication, pt current RASS score of 0 noted at this time. 13:51 Reassessment: Patient appears in no apparent distress at this time. Patient and/or sv family updated on plan of care and expected duration. Pain level reassessed. Patient is alert, oriented x 3, equal unlabored respirations, skin warm/dry/pink. GI: Reports nausea. Vital Signs: 11:56 BP 153 / 81; Pulse 76; Resp 18; Temp 97.7; Pulse Ox 100% on R/A; Weight 83.91 kg; aj Height 5 ft. 5 in. (165.10 cm); 13:44 BP 160 / 83; Pulse 72 MON; Resp 17; Pulse Ox 100% on R/A; sv 14:20 BP 146 / 81; Pulse 66 MON; Resp 14; Pulse Ox 99% on R/A; sv 11:56 Body Mass Index 30.79 (83.91 kg, 165.10 cm) aj 13:44 Sinus Rhythm sv 14:20 Sinus Rhythm sv ED Course: 11:55 Patient arrived in ED. as 11:55 Triage completed. aj 11:56 Arm band placed on left wrist. Patient placed in an exam room, in a wheelchair. EKG aj completed in triage. Results shown to MD. 12:06 Juwan Katz MD is Attending Physician. [facility] 12:09 EKG done, by ED staff, reviewed by Juwan Katz MD. jp3 12:51 Joan Kelly, REZA is Primary Nurse. sv 13:20 Patient has correct armband on for positive identification. Placed in gown. Bed in low sv position. Call light in reach. panel monitor on. Pulse ox on. NIBP on. Door closed. Warm blanket given. Head of bed elevated. 13:20 Initial lab(s) drawn, by me, sent to lab. Inserted saline lock: 20 gauge in right sv antecubital area, using aseptic technique. Blood collected. Flushed right antecubital with 5 ml normal saline. 13:20 Patient maintains SpO2 saturation greater than 95% on room air. sv 13:27 D-Dimer Sent. sv 13:27 Lipase Sent. sv 13:27 LFT's Sent. sv 13:27 Magnesium Sent. sv 13:27 PT-INR Sent. sv 13:27 Troponin (emerg Dept Use Only) Sent. sv 13:48 XRAY Chest (1 view) In Process Unspecified. EDMS 14:07 Awaiting disposition, Awaiting re-evaluation by ER provider. sv 14:45 Patient taken to ultrasound. via wheelchair. sv 14:54 US Extremity Venous W Compression Chris In Process Unspecified. EDMS 15:36 No provider procedures requiring assistance completed. IV discontinued, intact, ss bleeding controlled, No redness/swelling at site. Pressure dressing applied. Administered Medications: 13:27 Drug: NS 0.9% 1000 ml Route: IV; Rate: 75 ml/hr; Site: right antecubital; sv 15:30 Follow up: Response: No adverse reaction; IV Status: Order to discontinue infusion sv 13:52 Drug: Zofran 4 mg Route: IVP; Site: right antecubital; sv 14:30 Follow up: Response: No adverse reaction; Nausea is decreased sv 13:54 Drug: morphine 2 mg {Note: RASS 0.} Route: IVP; Site: right antecubital; sv 14:30 Follow up: Response: No adverse reaction; RASS: Alert and Calm (0) sv 18:23 Not Given (not needed): morphine 2 mg IVP once; RASS on ADMIN: Combtv4, Very Agttd3, sv Agttd2, Rstlss1, AlertClm0, Drwsy-1, Lt Sdtn-2, Mod Sdtn-3, Dp Sdtn-4, UnArsble-5 Outcome: 13:00 Patient left the ED. sv 15:26 Discharge ordered by . [facility] 15:36 Discharged to home ambulatory. ss 15:36 Condition: good 15:36 Discharge instructions given to patient, Instructed on discharge instructions, follow up and referral plans. Demonstrated understanding of instructions, follow-up care, medications. 15:37 Patient left the ED. ss Signatures: Dispatcher [employer] Joan Claros RN RN sv Gay, Steven, RN RN sg Myers, Amanda, RN RN aj Anderson, Corey, MD MD cha Martinez, Amelia as Smirch, Yamileth, REZA RN ss Carlos Mendoza jp3 Corrections: (The following items were deleted from the chart) 14:20 13:44 BP 160 / 83; Pulse 72bpm; Resp 17bpm; Pulse Ox 100% RA; sv sv
[2019-01-27 13:07] VITALS: TEMP 97.7
[2019-01-27] MEDS ORDERED: NA CHLORIDE 0.9% 500 ML ONE (13:17)
[2019-01-27 13:35] LABS: Absolute Lymphocytes (CBC) 2.4 K/uL (0.7-4.9); Basophils % 0.7 % (0-1.3); Lymphocytes % 40.1 % (15.3-44.8); MPV 9.2 fL (7.6-11.3); RBC Red Blood Cell Count 4.75 M/uL (3.86-4.86)
[2019-01-27 13:37] LABS: Protime INR 0.96
[2019-01-27 13:40] LABS: Urine Glucose NEGATIVE (NEG); Urine Specific Gravity 1.015 (1.005-1.030)
[2019-01-27 13:41] LABS: Urine Blood TRACE (NEG); Urine Protein NEGATIVE (NEG)
[2019-01-27] MEDS ORDERED: MORPHINE 2 MG/ML SYR ONE (13:49)
[2019-01-27] MEDS ORDERED: ONDANSETRON 4 MG/2 ML VIAL ONE (13:49)
[2019-01-27 13:54] LABS: ALT/SGPT 22 U/L (12-78); AST/SGOT 21 U/L (15-37); Albumin 4.2 g/dL (3.4-5.0); Alkaline Phosphatase 121 U/L (45-117); BUN Blood Urea Nitrogen 12 mg/dL (7-18); Bicarbonate 30 mmol/L (21-32); Bilirubin Direct 0.2 mg/dL (0-0.2); Bilirubin Total 1.1 mg/dL (0.2-1.0); Glucose Level 88 mg/dL (74-106); Lipase 105 U/L (73-393); Magnesium 2.3 mg/dL (1.8-2.4); NT PRO-BNP 226 pg/mL (<125); Potassium 3.6 mmol/L (3.5-5.1); Protein, Total 8.8 g/dL (6.4-8.2); Sodium Level 141 mmol/L (136-145); Troponin (Emerg Dept Use Only) < 0.02 ng/mL (0.0-0.045)
--- NOTE | 2019-01-27 14:03 | RAD REPORT ---
EXAM DESCRIPTION: RAD - Chest Single View - 01/27/2019 1:37 pm CLINICAL HISTORY: Dyspnea COMPARISON: July 2018 TECHNIQUE: AP portable chest image was obtained 1329 hours . FINDINGS: Lung volumes are low. Interstitial pattern is prominent but matches comparison. Left costo phrenic angle blunting is believed to be the affects of body habitus, portable technique and pericard ial fat. No new or progressive finding at the left base. Postsurgical changes to the ribcage left hil um and left suprahilar region noted also stable. Left apical pleural thickening present. Trachea is i n the midline. Heart and vasculature are normal. No measurable pleural effusion and no pneumothorax. No acute bony abnormality seen. No acute aortic findings suspected. IMPRESSION: No acute cardiopulmonary process. Above detailed chest findings are stable from July.
--- NOTE | 2019-01-27 15:22 | RAD REPORT ---
EXAM DESCRIPTION: USExtrem Venous W Compress Bil01/27/2019 3:07 pm CLINICAL HISTORY: Bilateral leg pain COMPARISON: 2017 FINDINGS: The common femoral, superficial femoral, popliteal and posterior tibial veins bilaterally are compressible and demonstrate augmentation. Doppler demonstrates good flow. IMPRESSION: No evidence of deep venous thrombosis involving either lower extremity.
--- NOTE | 2019-01-27 15:27 | EDPHYS ---
Physician Documentation [facility] Name: Toshia Barone Age: 64 yrs Sex: Female : 1955 Arrival Date: 01/27/2019 Time: 11:55 Bed 6 Private MD: ED Physician Juwan Katz HPI: 01/27 13:19 This 64 yrs old Female presents to ER via Ambulatory with complaints of yoandy Shortness Of Breath. 13:19 The patient has shortness of breath at rest, with light activity. Onset: The yoandy symptoms/episode began/occurred 2 day(s) ago. Duration: The symptoms are intermittent. The patient's shortness of breath is aggravated by exertion, light activity. Associated signs and symptoms: The patient has no apparent associated signs or symptoms. Severity of symptoms: At their worst the symptoms were mild in the emergency department the symptoms are unchanged. The patient has not experienced similar symptoms in the past. Historical: - Allergies: 11:56 methylphenidate HCl; aj 11:56 PENICILLINS; aj 11:56 Reglan; aj 11:56 Ritalin; aj - Home Meds: 11:56 aspirin 81 mg Oral TbEC 1 tab once daily [Active]; atenolol 100 mg Oral tab 1 tab once aj daily [Active]; atorvastatin 40 mg Oral tab 1 tab nightly [Active]; Eliquis 2.5 mg Oral tab 1 tab 2 times per day [Active]; gabapentin 300 mg Oral cap 1 cap 3 times per day [Active]; isosorbide mononitrate 30 mg Oral Tb24 1 tab once daily [Active]; levothyroxine 50 mcg tab 1 tab once daily [Active]; Nexium 40 mg Oral cpDR 1 cap once daily [Active]; ProAir HFA 90 mcg/actuation inhalation HFAA 1 puff every 4 hours [Active]; promethazine 12.5 mg Oral tab 1 tab as needed [Active]; spironolactone 25 mg Oral tab 1 tab 2 times per day [Active]; Stool Softener 100 mg Oral cap 1 cap once daily [Active]; tramadol 50 mg Oral tab 2 tabs every 6 hours [Active]; Vitamin D Oral 23681 unit Q WEEK [Active]; - PMHx: 11:56 B12 deficiency; CHF; COPD; CVA; DVT; fatty liver; GERD; Hyperlipidemia; Hypertension; aj Hypothyroidism; Kidney stones; Myocardial infarction; Pancreatitis; TIA; - Immunization history:: Adult Immunizations up to date. - Social history:: Smoking status: Patient/guardian denies using tobacco. - Ebola Screening: : Patient negative for fever greater than or equal to 101.5 degrees Fahrenheit, and additional compatible Ebola Virus Disease symptoms Patient denies exposure to infectious person Patient denies travel to an Ebola-affected area in the 21 days before illness onset No symptoms or risks identified at this time. ROS: 13:20 Constitutional: Negative for fever, chills, and weight loss, Eyes: Negative for injury, yoandy pain, redness, and discharge, ENT: Negative for injury, pain, and discharge, Neck: Negative for injury, pain, and swelling, Abdomen/GI: Negative for abdominal pain, nausea, vomiting, diarrhea, and constipation, Back: Negative for injury and pain, : Negative for injury, bleeding, discharge, and swelling, MS/Extremity: Negative for injury and deformity, Skin: Negative for injury, rash, and discoloration, Neuro: Negative for headache, weakness, numbness, tingling, and seizure, Psych: Negative for depression, anxiety, suicide ideation, homicidal ideation, and hallucinations, Allergy/Immunology: Negative for hives, rash, and allergies, Endocrine: Negative for neck swelling, polydipsia, polyuria, polyphagia, and marked weight changes, Hematologic/Lymphatic: Negative for swollen nodes, abnormal bleeding, and unusual bruising. 13:20 Cardiovascular: Positive for chest pain, palpitations. 13:20 Respiratory: Positive for shortness of breath. Exam: 13:20 Constitutional: This is a well developed, well nourished patient who is awake, alert, yoandy and in no acute distress. Head/Face: Normocephalic, atraumatic. Eyes: Pupils equal round and reactive to light, extra-ocular motions intact. Lids and lashes normal. Conjunctiva and sclera are non-icteric and not injected. Cornea within normal limits. Periorbital areas with no swelling, redness, or edema. ENT: Nares patent. No nasal discharge, no septal abnormalities noted. Tympanic membranes are normal and external auditory canals are clear. Oropharynx with no redness, swelling, or masses, exudates, or evidence of obstruction, uvula midline. Mucous membranes moist. Neck: Trachea midline, no thyromegaly or masses palpated, and no cervical lymphadenopathy. Supple, full range of motion without nuchal rigidity, or vertebral point tenderness. No Meningismus. Chest/axilla: Normal chest wall appearance and motion. Nontender with no deformity. No lesions are appreciated. Cardiovascular: Regular rate and rhythm with a normal S1 and S2. No gallops, murmurs, or rubs. Normal PMI, no JVD. No pulse deficits. Respiratory: Lungs have equal breath sounds bilaterally, clear to auscultation and percussion. No rales, rhonchi or wheezes noted. No increased work of breathing, no retractions or nasal flaring. Abdomen/GI: Soft, non-tender, with normal bowel sounds. No distension or tympany. No guarding or rebound. No evidence of tenderness throughout. Back: No spinal tenderness. No costovertebral tenderness. Full range of motion. Skin: Warm, dry with normal turgor. Normal color with no rashes, no lesions, and no evidence of cellulitis. MS/ Extremity: Pulses equal, no cyanosis. Neurovascular intact. Full, normal range of motion. Neuro: Awake and alert, GCS 15, oriented to person, place, time, and situation. Cranial nerves II-XII grossly intact. Motor strength 5/5 in all extremities. Sensory grossly intact. Cerebellar exam normal. Normal gait. Psych: Awake, alert, with orientation to person, place and time. Behavior, mood, and affect are within normal limits. 13:23 Musculoskeletal/extremity: DVT Exam: No signs of deep vein thrombosis. no pain, no yoandy swelling, no tenderness, negative Homans' sign noted on exam, no appreciated bluish discoloration, no erythema, no increased warmth. Vital Signs: 11:56 BP 153 / 81; Pulse 76; Resp 18; Temp 97.7; Pulse Ox 100% on R/A; Weight 83.91 kg; aj Height 5 ft. 5 in. (165.10 cm); 13:44 BP 160 / 83; Pulse 72 MON; Resp 17; Pulse Ox 100% on R/A; sv 14:20 BP 146 / 81; Pulse 66 MON; Resp 14; Pulse Ox 99% on R/A; sv 11:56 Body Mass Index 30.79 (83.91 kg, 165.10 cm) aj 13:44 Sinus Rhythm sv 14:20 Sinus Rhythm sv MDM: 12:06 Patient medically screened. [facility] 13:21 Data reviewed: vital signs, nurses notes, lab test result(s), EKG, radiologic studies, yoandy plain films. 01/27 13:13 Order name: Basic Metabolic Panel; Complete Time: 14:07 [facility] 01/27 13:13 Order name: CBC with Diff [facility] 01/27 13:13 Order name: LFT's; Complete Time: 14:07 [facility] 01/27 13:13 Order name: Magnesium; Complete Time: 14:07 [facility] 01/27 13:13 Order name: NT PRO-BNP; Complete Time: 14:07 [facility] 01/27 13:13 Order name: PT-INR; Complete Time: 13:48 [facility] 01/27 13:13 Order name: Troponin (emerg Dept Use Only); Complete Time: 14:07 [facility] 01/27 13:13 Order name: XRAY Chest (1 view); Complete Time: 14:07 [facility] 01/27 13:13 Order name: Lipase; Complete Time: 14:07 [facility] 01/27 13:13 Order name: D-Dimer; Complete Time: 13:48 [facility] 01/27 13:13 Order name: Urine Culture [facility] 01/27 13:31 Order name: Urine Dipstick--Ancillary (enter results) 01/27 14:11 Order name: US Extremity Venous W Compression Chris; Complete Time: 15:25 [facility] 01/27 11:59 Order name: EKG; Complete Time: 11:59 01/27 11:59 Order name: EKG - Nurse/Tech; Complete Time: 12:06 01/27 13:13 Order name: Cardiac monitoring; Complete Time: 13:27 [facility] 01/27 13:13 Order name: IV Saline Lock; Complete Time: 13:27 [facility] 01/27 13:13 Order name: Labs collected and sent; Complete Time: 13:27 [facility] 01/27 13:13 Order name: O2 Per Protocol; Complete Time: 13:27 [facility] 01/27 13:13 Order name: O2 Sat Monitoring; Complete Time: 13:27 [facility] 01/27 13:13 Order name: Urine Dipstick-Ancillary (obtain specimen); Complete Time: 13:27 [facility] Administered Medications: 13:27 Drug: NS 0.9% 1000 ml Route: IV; Rate: 75 ml/hr; Site: right antecubital; sv 15:30 Follow up: Response: No adverse reaction; IV Status: Order to discontinue infusion sv 13:52 Drug: Zofran 4 mg Route: IVP; Site: right antecubital; sv 14:30 Follow up: Response: No adverse reaction; Nausea is decreased sv 13:54 Drug: morphine 2 mg {Note: RASS 0.} Route: IVP; Site: right antecubital; sv 14:30 Follow up: Response: No adverse reaction; RASS: Alert and Calm (0) sv 18:23 Not Given (not needed): morphine 2 mg IVP once; RASS on ADMIN: Combtv4, Very Agttd3, sv Agttd2, Rstlss1, AlertClm0, Drwsy-1, Lt Sdtn-2, Mod Sdtn-3, Dp Sdtn-4, UnArsble-5 Disposition: 01/27/19 15:26 Discharged to Home. Impression: Dyspnea, Weakness. - Condition is Stable. - Discharge Instructions: Weakness, Weakness, [id number]. - Medication Reconciliation Form, Thank You Letter, Antibiotic Education, Prescription Opioid Use form. - Follow up: Private Physician; When: 2 - 3 days; Reason: Recheck today's complaints, Continuance of care, Re-evaluation by your physician. - Problem is new. - Symptoms have improved. Signatures: Dispatcher [employer] Joan Claros RN RN Allyson Hare RN RN aj Anderson, Corey, MD MD cha Smirch, Shelby, RN RN ss Corrections: (The following items were deleted from the chart) 13:12 13:00 01/27/2019 13:00 Patient left the facility before being seen by provider. Reason yoandy stated they are leaving due to unknown. sv 15:37 15:26 01/27/2019 15:26 Discharged to Home. Impression: Dyspnea; Weakness. Condition is ss Stable. Discharge Instructions: Weakness, Weakness, [id number]. Forms are Medication Reconciliation Form, Thank You Letter, Antibiotic Education, Prescription Opioid Use. Follow up: Private Physician; When: 2 - 3 days; Reason: Recheck today's complaints, Continuance of care, Re-evaluation by your physician. Problem is new. Symptoms have improved. yoandy
[2019-01-27 15:43] VITALS: BP 146/81; O2SAT 99
--- NOTE | 2019-01-28 05:32 | EKG ---
Test Date: 2019-01-27 Test Time: 12:06:34 Scraper Burrer: FESTUS MEASUREMENT RESULTS: Intervals: Rate: 70 WI: 134 QRSD: 68 QT: 370 QTc: 399 [place]: P: 1 WI: 134 QRS: 14 T: 101 INTERPRETIVE STATEMENTS: Normal sinus rhythm T wave abnormality, consider anterolateral ischemia Abnormal ECG Compared to ECG 07/30/2018 10:48:29 Possible ischemia now present T-wave abnormality still present Electronically Signed On 01-28-19 05:31:32 CDT by Ivan Hernandez
== END 2019-01-27 15:37 | disposition home or self-care (01) ==
LOC: ER 11:52
DX: R06.00 Dyspnea, unspecified (principal); R53.1 Weakness; I11.0 Hypertensive heart disease with heart failure; I50.9 Heart failure, unspecified; J44.9 Chronic obstructive pulmonary disease, unspecified; Z86.73 Personal history of transient ischemic attack (TIA), and cerebral infarction without residual deficits; Z86.718 Personal history of other venous thrombosis and embolism; E78.5 Hyperlipidemia, unspecified; E03.9 Hypothyroidism, unspecified; I25.2 Old myocardial infarction; Z88.0 Allergy status to penicillin; Z88.8 Allergy status to other drugs, medicaments and biological substances; Z79.01 Long term (current) use of anticoagulants; Z79.82 Long term (current) use of aspirin
CPT/HCPCS: 96361; 93005; 87088; 85025; 87086; 80048; 36415; 83735; 85610; 85379; 80076; 81003; 84484; 83690; 83880; 71045; 93970; 96375; 96374; 99285; J2270; J2405; 87077; 87186

== ENCOUNTER 2019-08-26 08:45 | Emergency (ER) | payer OTHER ==
--- OUTSIDE RECORDS SUMMARY | 2019-08-26 08:49 | XMS REPORT ---
:1955 Author Organization eClinicalWorks Care Team Providers Name Role Phone Husam Roach Provider Role Unavailable Allergies, Adverse Reactions, Alerts Substance Reaction Event Type Metoclopramide HCl Info Not Available Drug Allergy Amoxicillin Info Not Available Drug Allergy Problems Problem Type Condition Code Onset Dates Condition Status Assessment Urinary tract infection, site not N39.0 Active specified Assessment Incomplete bladder emptying R33.9 Active Assessment Kidney stones N20.0 Active Assessment Hematuria, unspecified type R31.9 Active Problem Stented coronary artery Z95.5 Active Problem Obstructive sleep apnea G47.33 Active Problem Postsurgical menopause N95.8 Active Problem Adrenal hypofunction E27.49 Active Problem Depression with anxiety F41.8 Active Problem History of cerebrovascular accident Z86.73 Active Problem Degeneration, intervertebral disc, 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 Problem Atherosclerosis of coronary artery I25.10 Active of [place] [facility] Problem Other chronic pain G89.29 Active Problem Chronic obstructive pulmonary J44.9 Active disease, unspecified COPD type Problem Insomnia G47.00 Active Problem Peripheral neuropathy G62.9 Active Problem Kidney stones N20.0 Active Problem Chronic pancreatitis K86.1 Active Problem Simple renal cyst N28.1 Active Problem Vitamin B12 deficiency anemia D51.9 Active Problem Hypothyroidism, unspecified type E03.9 Active Problem Stress disorder, acute F43.0 Active Problem Dizziness R42 Active Problem Hypertension I10 Active Problem Fatty liver K76.0 Active Problem GERD (gastroesophageal reflux K21.9 Active disease) Problem Degenerative joint disease M19.90 Active Problem History of transient ischemic attack Z86.73 Active Problem Hyperlipidemia, mixed E78.2 Active Problem Varicose veins I86.8 Active Medications Medication Code Code Instructions Start End Status Dosage System Date Date Cipro [facility] 79186049426 500 MG Orally Mar 30Mar Active 1 tablet once a day 2018 Hydrocortisone ND 11186941836 1 % Externally May 13, Active 1 application Acetate Twice a day 2017 to affected area Nasonex ND 53915346159 50 MCG/ACT Active 2 sprays in Nasally Once a each nostril day Promethazine HCl [facility] 23991189157 25 MG/ML Active 1 ml as Injection needed every 6 hrs Aspirin [facility] 34650981933 81 MG Active TAKE 1 TABLET BY MOUTH EVERY DAY Aspirin ND 61890094296 81 MG Active TAKE 1 TABLET BY MOUTH EVERY DAY Nexium [facility] 26456694769 40 MG Active TAKE ONE CAPSULE BY MOUTH EVERY DAY Venlafaxine HCl [facility] 07316939180 75 MG Active TAKE ONE ER CAPSULE BY MOUTH EVERY DAY Simvastatin [facility] 82578506673 40 MG Orally Active 1 tablet in Once a day the evening Nexium [facility] 02120496537 40 MG Active TAKE ONE CAPSULE BY MOUTH EVERY DAY Atenolol ND 57131711374 100 MG PO Once Active TAKE 1 TABLET daily BY MOUTH EVERY DAY Levothyroxine [facility] 12488670819 50 MCG Active TAKE 1 TABLET Sodium BY MOUTH EVERY DAY IN THE MORNING ProAir HFA [facility] 09882571221 108 (90 Base) Active 2 puffs as MCG/ACT needed Inhalation every 6 hrs Trelegy Ellipta [facility] 20772492432 100-62.5-25 Active 1 puff MCG/INH Inhalation Once a day Fluticasone [facility] 40013938297 50 MCG/ACT Active 1 spray in Propionate Nasally Once a each nostril day Vitamin B12 [facility] 73944487954 1000 MCG Active 1 tablet Orally Once a day Clopidogrel [facility] 36936072978 75 MG Orally Active 1 tablet Bisulfate Once a day Loratadine [facility] 64682126107 10 MG Orally Active 1 tablet Once a day Atenolol ND 71398507943 100 MG PO Once Active TAKE 1 TABLET daily BY MOUTH EVERY DAY Hydrocodone-Aceta [facility] 74685703959 5-325 MG Active 1 tablet as minophen Orally every 6 needed hrs Tamsulosin HCl [facility] 42192692150 0.4 MG Orally Feb 01Mar Active 1 capsule Once a day 2018 Furosemide [facility] 55935041299 20 MG Orally Active 1 tablet Once a day Simvastatin [facility] 68863912662 40 MG Orally Active 1 tablet in Once a day the evening Nystatin [facility] 51061384885 684256 UNIT/ML August Active 4 ml Mouth/Throat 25, Four times a 2019 day Triamcinolone [facility] 80174169087 0.1 % May 19, Active 1 application Acetonide Externally 2018 to affected Twice a day area Synthroid [facility] 64533875021 50 MCG Orally Active 1 tablet on Once a day an empty stomach in the morning Results No Known Results Summary Purpose eClinicalWorks Submission
--- OUTSIDE RECORDS SUMMARY | 2019-08-26 08:50 | XMS REPORT ---
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 Problem Atherosclerosis of coronary artery I25.10 Active of [place] [facility] Problem Other chronic pain G89.29 Active [...] Status Dosage System Date Date Venlafaxine HCl ND 93080188956 75 MG Active TAKE 1 ER CAPSULE BY MOUTH EVERY DAY Hydrocortisone ND 73870939718 1 % Externally May 13, Active 1 application Acetate Twice a day 2018 to affected area Hydrocodone-Aceta ND 30357856856 5-325 MG Active 1 tablet as minophen Orally every 6 needed hrs Clopidogrel ND 71213209960 75 MG Orally Active 1 tablet Bisulfate Once a day ProAir HFA [facility] 12265148323 108 (90 Base) Active 2 puffs as MCG/ACT needed Inhalation every 6 hrs Nasonex ND 23308099601 50 MCG/ACT Active 2 sprays in Nasally Once a each nostril day Nexium [facility] 35202611235 40 MG Active TAKE ONE CAPSULE BY MOUTH EVERY DAY Levothyroxine ND 86236802421 50 MCG Active TAKE 1 TABLET Sodium BY MOUTH EVERY DAY IN THE MORNING Triamcinolone [facility] 43487093744 0.1 % May 19, Active 1 application Acetonide Externally 2018 to affected Twice a day area Promethazine HCl [facility] 51167305836 25 MG/ML Active 1 ml as Injection needed every 6 hrs Aspirin [facility] 96372836510 81 MG Active TAKE 1 TABLET BY MOUTH EVERY DAY Fluticasone [facility] 17320884264 50 MCG/ACT Active 1 spray in Propionate Nasally Once a each nostril day Vitamin B12 [facility] 26507648590 1000 MCG Active 1 tablet Orally Once a day Loratadine [facility] 52206203500 10 MG Orally Active 1 tablet Once a day Furosemide [facility] 73201356339 20 MG Orally Active 1 tablet Once a day Nexium [facility] 77009235043 40 MG Active TAKE ONE CAPSULE BY MOUTH EVERY DAY Nystatin [facility] 06330354546 634441 UNIT/ML August Active 4 ml Mouth/Throat , Four times a 2018 day Aspirin [facility] 65729067855 81 MG Active TAKE 1 TABLET BY MOUTH EVERY DAY Simvastatin [facility] 48282727934 40 MG Orally Active 1 tablet in Once a day the evening Synthroid [facility] 78644107166 50 MCG Orally Active 1 tablet on Once a day an empty stomach in the morning Atenolol [facility] 22445918453 100 MG Active TAKE 1 TABLET BY MOUTH EVERY DAY Doxycycline [facility] 99437709621 100 MG Orally May 17May Active 1 capsule Hyclate every 12 hrs 2018 Trelegy Ellipta [facility] 80433412236 100-62.5-25 Active 1 puff MCG/INH Inhalation Once a day Results Name Result Date Reference Range Unit Abnormality Flag STREP A RAPID ----Result NEG [id number] FLU TEST A/B ----B NEG [id number] ----A NEG [id number] Summary Purpose eClinicalWorks Submission
--- OUTSIDE RECORDS SUMMARY | 2019-08-26 08:50 | XMS REPORT ---
[...] artery I25.10 Active of [place] [facility] Problem Other chronic pain G89.29 Active [...] Active Problem Varicose veins I86.8 Active Medications No Known Medications Results No Known Results Summary Purpose eClinicalWorks Submission
--- OUTSIDE RECORDS SUMMARY | 2019-08-26 08:50 | XMS REPORT ---
:1955 Author Organization [employer]Works Care Team Providers Name Role Phone Tonio Miller Provider Role Unavailable Allergies No Known Allergies Problems Problem Type Condition Code Onset Dates Condition Status Assessment Pruritic dermatitis L29.9 Active Assessment Candidiasis, intertrigo B37.2 Active Problem Stented coronary artery Z95.5 Active Problem Obstructive sleep apnea G47.33 Active Problem Postsurgical menopause N95.8 Active Problem Adrenal hypofunction E27.49 Active Problem Depression with anxiety F41.8 Active Problem History of cerebrovascular accident Z86.73 Active Problem Degeneration, intervertebral disc, 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
--- OUTSIDE RECORDS SUMMARY | 2019-08-26 08:50 | XMS REPORT ---
[...] Atherosclerosis of coronary artery I25.10 Active of [place] [facility] Problem Other chronic pain G89.29 Active [...] Start End Status Dosage System Date Date Hydrocodone-Acet NDC 08701352670 5-325 MG Active 1 tablet as aminophen Orally every 6 needed hrs Nystatin NDC 41386481433 573679 UNIT/ML August Active 4 ml Mouth/Throat 25, Four times a 2019 day Clotrimazole ND 07681611134 1 % Externally Jul 06August Active 1 application Twice a day 2019 Nexium ND 66023267982 40 MG Active TAKE ONE CAPSULE BY MOUTH EVERY DAY Aspirin [facility] 06829895362 81 MG Active TAKE 1 TABLET BY MOUTH EVERY DAY Clopidogrel ND 35534970621 75 MG Orally Active 1 tablet Bisulfate Once a day Atenolol ND 58497213188 100 MG Active TAKE 1 TABLET BY MOUTH EVERY DAY Vitamin B12 [facility]AM[facility] 19631872742 1000 MCG Active 1 tablet Orally Once a day Hydrocortisone ND 81677476596 1 % Externally May 13, Active 1 application Acetate Twice a day 2017 to affected area Aspirin ND 50735329200 81 MG Active TAKE 1 TABLET BY MOUTH EVERY DAY Simvastatin [facility] 90043281014 40 MG Orally Active 1 tablet in Once a day the evening Trelegy Ellipta [facility] 47784316800 100-62.5-25 Active 1 puff MCG/INH Inhalation Once a day Levothyroxine [facility] 07366476351 50 MCG Active TAKE 1 TABLET Sodium BY MOUTH EVERY DAY IN THE MORNING Fluticasone [facility] NAM[facility] 90620600222 50 MCG/ACT Active 1 spray in Propionate Nasally Once a each nostril day Furosemide [facility]AM[facility] 32950269942 20 MG Orally Active 1 tablet Once a day Loratadine [facility] 17731960492 10 MG Orally Active 1 tablet Once a day Pramoxine HCl [facility]AM[facility] [address]-55 1 % Externally Jul 06, Aug 05, Active 1 application BID PRN 2019 2019 to affected Itching area as needed Synthroid [facility] 63043407937 50 MCG Orally Active 1 tablet on Once a day an empty stomach in the morning Promethazine HCl [facility] 43830008848 25 MG/ML Active 1 ml as Injection needed every 6 hrs Venlafaxine HCl [facility] NAM[facility] 80834413636 75 MG Active TAKE 1 ER CAPSULE BY MOUTH EVERY DAY Nexium ND 38487136075 40 MG Active TAKE ONE CAPSULE BY MOUTH EVERY DAY Triamcinolone ND 38374038022 0.1 % May 19, Active 1 application Acetonide Externally 2017 to affected Twice a day area ProAir HFA [facility] 43859243489 108 (90 Base) Active 2 puffs as MCG/ACT needed Inhalation every 6 hrs Nasonex ND 98670457903 50 MCG/ACT Active 2 sprays in Nasally Once a each nostril day Results No Known Results Summary Purpose eClinicalWorks Submission
--- OUTSIDE RECORDS SUMMARY | 2019-08-26 08:50 | XMS REPORT ---
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
--- OUTSIDE RECORDS SUMMARY | 2019-08-26 08:51 | XMS REPORT ---
:1955 Author Organization eClinicalWorks Care Team Providers Name Role Phone Paul Tonio Provider Role Unavailable Allergies, Adverse Reactions, Alerts Substance Reaction Event Type PCN hives Drug Allergy Metoclopramide HCl anxiety Drug Allergy Problems Problem Type Condition Code Onset Dates Condition Status Assessment Atherosclerosis of coronary artery I25.10 Active of [place] [facility] Assessment Stented coronary artery Z95.5 Active [...] Atherosclerosis of coronary artery I25.10 Active of [place] [facility] Problem Other chronic pain G89.29 Active Problem Chronic obstructive pulmonary J44.9 Active disease, unspecified COPD type Problem Insomnia G47.00 Active Problem Peripheral neuropathy G62.9 Active Problem Kidney stones N20.0 Active Problem Chronic pancreatitis K86.1 Active Problem Simple renal cyst N28.1 Active Problem Vitamin B12 deficiency anemia D51.9 Active Problem Hypothyroidism, unspecified type E03.9 Active Problem Stress disorder, acute F43.0 Active Assessment Low back pain M54.5 Active Problem Dizziness R42 Active Assessment GERD (gastroesophageal reflux K21.9 Active disease) Problem Hypertension I10 Active Assessment Cervicalgia M54.2 Active Problem Fatty liver K76.0 Active Assessment Other chronic pain G89.29 Active Problem GERD (gastroesophageal reflux K21.9 Active disease) Assessment Multiple joint pain M25.50 Active Problem Degenerative joint disease M19.90 Active Assessment Fatigue, unspecified type R53.83 Active Problem History of transient ischemic attack Z86.73 Active Problem Hyperlipidemia, mixed E78.2 Active Problem Varicose veins I86.8 Active Medications Medication Code Code Instructions Start End Status Dosage System Date Date Hydrocodone-Familia [facility] 06464550669 5-325 MG Active 1 tablet as taminophen Orally every 6 needed hrs Synthroid [facility] 46716255604 50 MCG Orally Active 1 tablet on Once a day an empty stomach in the morning Atenolol [facility] 44269478149 100 MG PO Once Active TAKE 1 TABLET daily BY MOUTH EVERY DAY Nexium [facility] 06419002227 40 MG Active TAKE ONE CAPSULE BY MOUTH EVERY DAY Atenolol [facility] 04379095439 100 MG Active TAKE 1 TABLET BY MOUTH EVERY DAY Clotrimazole [facility] 01572477629 1 % Externally Jul 06August Active 1 application Twice a day 2019 [address]y [address]a [facility] 39538667314 100-62.5-25 Active 1 puff MCG/INH Inhalation Once a day Venlafaxine HCl [facility] 70303904161 75 MG Active TAKE 1 ER CAPSULE BY MOUTH EVERY DAY Aspirin [facility] 32271902133 81 MG Active TAKE 1 TABLET BY MOUTH EVERY DAY Pramoxine HCl [facility] [address]-26 1 % Externally Jul 06, Aug 05, Active 1 application BID PRN 2019 2019 to affected Itching area as needed Simvastatin [facility] 74152693214 40 MG Orally Active 1 tablet in Once a day the evening Simvastatin [facility] 41138373432 40 MG Orally Active 1 tablet in Once a day the evening Loratadine [facility] 23955600898 10 MG Orally Active 1 tablet Once a day ProAir HFA [facility] 65515683617 108 (90 Base) Active 2 puffs as MCG/ACT needed Inhalation every 6 hrs Clopidogrel [facility] 62513070231 75 MG Orally Active 1 tablet Bisulfate Once a day Promethazine [facility] 21124409230 25 MG/ML Active 1 ml as HCl Injection needed every 6 hrs Vitamin B12 [facility] 92266431030 1000 MCG Active 1 tablet Orally Once a day Furosemide [facility] 57798133886 20 MG Orally Active 1 tablet Once a day Venlafaxine HCl [facility] 52174408545 75 MG Active TAKE ONE ER CAPSULE BY MOUTH EVERY DAY Nasonex [facility] 34077032950 50 MCG/ACT Active 2 sprays in Nasally Once a each nostril day Results No Known Results Summary Purpose eClinicalWorks Submission
--- OUTSIDE RECORDS SUMMARY | 2019-08-26 08:51 | XMS REPORT | Summary of Care ---
:1955 Author Organization [facility] - Health Address [address] [place] [address] Care Team Providers Name Role Phone Tonio Miller Primary Care Provider Encounter Details Date Type Department Care Team Description 08/02/2019 Orders Only [facility] Doctor Unassigned, No 301 [facility] [place] [address] [place] [address] Allergies Active Allergy Reactions Severity Noted Date Comments Penicillins Rash 10/05/2014 Metoclopramide Hcl Unknown - See comments 12/21/2014 Methylphenidate Anxiety 10/05/2014 documented as of this encounter (statuses as of 08/02/2019) Medications Medication Sig Dispensed Refills Start Date End Date Status PROAIR HFA 90 Inhale 2 Puffs 5 09/03/2014 Active mcg/actuation every 6 (six) hours inhaler as needed for Wheezing or Shortness of Breath. CREON Take 2 Tabs by 0 10/04/2014 Active 36,000-114,000- mouth 2 (two) times 180,000 unit CpDR daily. esomeprazole Take 40 mg by mouth 0 Active (NEXIUM) 40 mg daily. capsule budesonide-formotero Inhale 2 Puffs 2 0 Active l (SYMBICORT) (two) times daily. 160-4.5 mcg/actuation inhaler nitroglycerin Place 0.4 mg under 0 Active (NITROSTAT) 0.4 mg the tongue every 5 sublingual tablet (five) minutes as needed for Chest pain. mometasone (NASONEX) Use 1 [place] in each 0 Active 50 mcg/actuation nostril. nasal spray aspirin (ASPIRIN LOW Take 1 tablet by 30 tablet 3 07/22/2016 Active DOSE) 81 mg EC mouth daily. tablet proMETHazine 12.5 mg Take 1 tablet by 30 tablet 0 07/22/2016 Active tablet mouth every 6 (six) hours as needed for Nausea and Vomiting (N/V). atorvastatin 40 mg Take 1 tablet by 30 tablet 3 07/22/2016 Active tablet mouth at bedtime. atenolol 100 mg Take 100 mg by 2 09/24/2016 Active tablet mouth daily. VITAMIN D2 50,000 Take 50,000 Units 0 10/07/2016 Active unit capsule by mouth weekly. HYDROcodone-acetamin Take 1 tablet by 0 10/08/2016 Active ophen 10-325 mg mouth as needed. tablet isosorbide Take 30 mg by mouth 0 10/10/2016 Active mononitrate 30 mg 24 as needed. hr tablet clopidogrel (PLAVIX) Take 75 mg by mouth 0 Active 75 mg tablet daily. nortriptyline 25 mg Take 1 capsule by 60 capsule 1 02/06/2017 Active capsule mouth at bedtime. cyanocobalamin 1 mL by 10 mL 1 03/27/2017 Active (VITAMIN B-12) 1,000 Intramuscular route mcg/mL injection once every month. LEVOTHYROXINE 50 mcg TAKE 1 TABLET BY 30 tablet 0 10/27/2018 Active tabletIndications: MOUTH EVERY Hypothyroidism MORNING. (acquired) psyllium-sucrose Take 1 Packet by 540 g 2 03/23/2019 Active (METAMUCIL, SUGAR,) mouth 3 (three) powderIndications: times daily. Hemorrhoids, unspecified hemorrhoid type ibuprofen 600 mg Take 1 tablet by 30 tablet 1 03/23/2019 Active tabletIndications: mouth every 6 (six) Hemorrhoids, hours as needed for unspecified Pain (scale 1-3). hemorrhoid type HYDROcodone-acetamin Take 1 tablet by 30 tablet 0 03/23/2019 Active ophen (NORCO) 5-325 mouth every 6 (six) mg hours as needed for tabletIndications: Pain (scale 4-6) or Hemorrhoids, Pain (scale 7-10). unspecified hemorrhoid type docusate (COLACE) Take 1 capsule by 60 capsule 1 03/23/2019 Active 100 mg mouth 2 (two) times capsuleIndications: daily. Hemorrhoids, unspecified hemorrhoid type furosemide 40 mg Take 40 mg by mouth 0 06/25/2019 Active tablet daily. documented as of this encounter (statuses as of 08/02/2019) Active Problems Problem Noted Date Hemorrhoids, unspecified hemorrhoid type 02/17/2019 Overview: Added automatically from request for surgery [id number] Seizure 02/03/2017 Chest pain, atypical 09/24/2016 Chronic confusion 09/24/2016 Adrenal insufficiency 07/20/2016 Hypothyroidism (acquired) 07/20/2016 Unstable angina 07/19/2016 Dyspnea 07/18/2016 Personal history of transient ischemic attack (TIA), and cerebral 09/11/2014 infarction without residual deficits History of stroke 09/11/2014 Hypertension 09/11/2014 Cerebrovascular accident (CVA) 09/11/2014 Chronic coronary artery disease 09/11/2014 Cervical spondylosis without myelopathy 12/05/2008 Displacement of lumbar intervertebral disc without myelopathy 12/05/2008 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 Obstructive sleep apnea 12/02/2007 Overview: ICD10 Diagnosis Term Watch And Clock Maker And Repairer Utility 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 Anxiety state 11/04/2007 Overview: ICD10 Diagnosis Term Watch And Clock Maker And Repairer Utility Insomnia 11/04/2007 Overview: ICD10 Diagnosis Term Watch And Clock Maker And Repairer Utility Other chest pain 07/09/2007 Essential hypertension, benign 07/09/2007 HLD (hyperlipidemia) 07/09/2007 Overview: ICD10 Diagnosis Term Watch And Clock Maker And Repairer Utility gerd 07/09/2007 Chronic obstructive airway disease with asthma 07/09/2007 Overview: ICD10 Diagnosis Term Watch And Clock Maker And Repairer Utility documented as of this encounter (statuses as of 08/02/2019) Immunizations Name Administration Dates Next Due Influenza Virus Vaccine 09/22/2007 Pneumococcal Polysaccharide, PPSV23 (PNEUMOVAX) 09/22/2007 documented as of this encounter Social History Tobacco Use Types Packs/Day Years Used Date Former Smoker Cigarettes 0 25 Smokeless Tobacco: Never Used Comments: received fact sheets on stopping smoking Alcohol Use Drinks/Week oz/Week Comments No 0 Standard drinks or equivalent 0.0 Sex Assigned at Date Recorded Not on file Job Start Date Occupation Industry Not on file Not on file Not on file Travel History Travel Start Travel End No recent travel history available. documented as of this encounter Last Filed Vital Signs Not on filedocumented in this encounter Plan of Treatment Date Type Specialty Care Team Description 08/16/2019 Hospital Encounter Surgery Tyler Henson MD [id number] [place] [address] [phone] 08/16/2019 Surgery Surgery Tyler Henson, CERVICAL EPIDURAL STEROID INJECTION [id number] [address] [phone] 08/30/2019 Hospital Encounter Surgery Tyler Henson MD [id number] [place] [address] 08/30/2019 Surgery Surgery Tyler Henson, CERVICAL EPIDURAL STEROID INJECTION [id number], [place] [address] [phone] Health Maintenance Due Date Last Done Comments HEPATITIS C (HCV) SCREEN 1955 DTaP,Tdap,and Td Vaccines (1 - Tdap) 01/15/1968 Breast Cancer Screening (MAMMOGRAM) 1997 COLONOSCOPY 2007 Zoster Recombinant Vaccine (SHINGRIX) (1 of 2) 2007 PAP SMEAR 02/01/2007 02/02/2004 LUNG CANCER SCREEN: Recommended for age 55-80 with 30 07/17/2017 07/17/2016 + pack year history INFLUENZA VACCINE (#1) 2019 09/22/2007 PNEUMOCOCCAL 0-64 YEARS COMBINED SERIES Completed 09/22/2007 documented as of this encounter Procedures Procedure Name Priority Date/Time Associated Diagnosis Comments DAY SURGERY - ADC Routine 08/02/2019 12:01 AM CERTIFIED CAREGIVER documented in this encounter Results Not on filedocumented in this encounter Insurance Payer Benefit Plan / Subscriber ID Effective Dates Phone Address Type Group [facility] xxxxxxxxx 2011-Present Medicaid COMM PLAN - PLUS MANAGED MEDICAID documented as of this encounter
--- OUTSIDE RECORDS SUMMARY | 2019-08-26 08:51 | XMS REPORT ---
:1955 Author Organization [employer] Care Team Providers Name Role Phone Selina Au Provider Role Unavailable Allergies, Adverse Reactions, Alerts Substance Reaction Event Type PCN hives Drug Allergy Metoclopramide HCl anxiety Drug Allergy Problems Problem Type Condition Code Onset Dates Condition Status Assessment Allergic rhinitis, unspecified J30.9 Active seasonality, unspecified trigger Problem Stented coronary artery Z95.5 Active Problem Obstructive sleep apnea G47.33 Active Problem Postsurgical menopause N95.8 Active Problem Adrenal hypofunction E27.49 Active Problem Depression with anxiety F41.8 Active Problem History of cerebrovascular accident Z86.73 Active Problem Degeneration, intervertebral disc, 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 Problem Atherosclerosis of coronary artery I25.[address] heart Problem Other chronic pain G89.29 Active [...] End Status Dosage System Date Date Hydrocortisone [facility] 98449221895 1 % Externally May 13, Active 1 application Acetate Twice a day 2018 to affected area Triamcinolone ND 69423800495 0.1 % May 19, Active 1 application Acetonide Externally 2018 to affected Twice a day area Trelegy Ellipta ND 19868703882 100-62.5-25 Active 1 puff MCG/INH Inhalation Once a day Nexium ND 74242508677 40 MG Active TAKE ONE CAPSULE BY MOUTH EVERY DAY Venlafaxine HCl [facility] 90093196029 75 MG Active TAKE 1 ER CAPSULE BY MOUTH EVERY DAY Furosemide ND 32939703764 20 MG Orally Active 1 tablet Once a day Hydrocodone-Acet ND 49693347753 5-325 MG Active 1 tablet as aminophen Orally every 6 needed hrs Atenolol ND 05118281276 100 MG Active TAKE 1 TABLET BY MOUTH EVERY DAY ProAir HFA [facility] 58676967466 108 (90 Base) Active 2 puffs as MCG/ACT needed Inhalation every 6 hrs Clotrimazole ND 64541691724 1 % Externally Jul 06August Active 1 application Twice a day 2019 Pramoxine HCl [facility] [address]-15 1 % Externally Jul 06, Aug 05, Active 1 application BID PRN 2019 2019 to affected Itching area as needed Loratadine [facility] 05576516957 10 MG Orally Active 1 tablet Once a day Vitamin B12 [facility] 38257694948 1000 MCG Active 1 tablet Orally Once a day Nystatin [facility] 66776183886 541946 UNIT/ML August Active 4 ml Mouth/Throat 25, Four times a 2018 day Synthroid ND 17307410987 50 MCG Orally Active 1 tablet on Once a day an empty stomach in the morning Nasonex ND 86069406968 50 MCG/ACT Active 2 sprays in Nasally Once a each nostril day Simvastatin [facility] 38454448136 40 MG Orally Active 1 tablet in Once a day the evening Clopidogrel ND 57724800625 75 MG Orally Active 1 tablet Bisulfate Once a day Aspirin [facility] 24598803960 81 MG Active TAKE 1 TABLET BY MOUTH EVERY DAY Promethazine HCl [facility] 43888108912 25 MG Orally Active 1 tablet as every 6 hrs needed Results No Known Results Summary Purpose [employer]ClinicalWorks Submission
--- OUTSIDE RECORDS SUMMARY | 2019-08-26 08:52 | XMS REPORT | Summary of Care ---
:1955 Author Organization [facility] - Health Address [address] [place] [address] Care Team Providers Name Role Phone Tonio Miller Primary Care Provider Encounter Details Date Type Department Care Team Description 07/27/2019 Orders Only [facility] Doctor Unassigned, No 301 [facility] [place] [address] [place] [address] Allergies Active Allergy Reactions Severity Noted Date Comments Penicillins Rash 10/05/2014 Metoclopramide Hcl Unknown - See comments 12/21/2014 Methylphenidate Anxiety 10/05/2014 documented as of this encounter (statuses as of 07/27/2019) Medications Medication Sig Dispensed Refills Start Date End Date Status PROAIR HFA 90 Inhale 2 Puffs 5 09/03/2014 Active mcg/actuation every 6 (six) hours inhaler as needed for Wheezing or Shortness of Breath. furosemide (LASIX) Take 20 mg by mouth 0 10/04/2014 Active 20 mg tablet daily. CREON Take 2 Tabs by 0 10/04/2014 [...] for Chest pain. mometasone (NASONEX) Use 1 [place] in each 0 Active 50 mcg/actuation nostril. [...] times capsuleIndications: daily. 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 Anxiety state 11/04/2007 Overview: ICD10 Diagnosis Term Personal Injury Specialist Utility Insomnia 11/04/2007 Overview: ICD10 Diagnosis Term Personal Injury Specialist Utility Other chest pain 07/09/2007 Essential hypertension, benign 07/09/2007 HLD (hyperlipidemia) 07/09/2007 Overview: ICD10 Diagnosis Term Personal Injury Specialist Utility gerd 07/09/2007 Chronic obstructive airway disease with asthma 07/09/2007 Overview: ICD10 Diagnosis Term Personal Injury Specialist Utility documented as of this encounter (statuses as of 07/27/2019) Immunizations Name Administration Dates Next Due Influenza [...] Treatment Date Type Specialty Care Team Description 08/02/2019 Hospital Encounter Surgery Tyler Hneson MD [address] [place] [address] [phone] 08/02/2019 Anesthesia Event Surgery Minerva Ba, SHANK CUTTER [address] [place] [address] 08/02/2019 Surgery Surgery Tyler Henson CERVICAL EPIDURAL STEROID INJECTION [address] [place] [address] [phone] 08/16/2019 Hospital Encounter Surgery Tyler Henson MD [address] [place] [address] [phone] 08/16/2019 Surgery Surgery Tyler Henson CERVICAL EPIDURAL STEROID INJECTION [address] [place] [address] [phone] 08/30/2019 Hospital Encounter Surgery Tyler Henson MD [address] [place] [phone] 08/30/2019 Surgery Surgery Tyler Henson CERVICAL EPIDURAL STEROID INJECTION [address] [place] [phone] Health Maintenance Due Date Last Done Comments [...] Procedure Name Priority Date/Time Associated Diagnosis Comments ASSIGNMENT OF BENEFITS Routine 07/27/2019 3:00 PM GIFT CONSULTANT documented in this encounter Results Not on filedocumented in this encounter Insurance Payer Benefit Plan / Subscriber ID Effective Dates Phone Address Type Group [facility] ST[facility] xxxxxxxxx 2011-Present Medicaid COMM PLAN - PLUS MANAGED MEDICAID documented as of this encounter
--- OUTSIDE RECORDS SUMMARY | 2019-08-26 08:52 | XMS REPORT | Summary of Care ---
:1955 Author Organization [facility] - Health Address [address] [place] [address] Care Team Providers Name Role Phone Tonio Miller Primary Care Provider Encounter Details Date Type Department Care Team Description 07/28/2019 Orders Only [facility] Doctor Unassigned, No 301 [facility] [place] [address] [place] [address] Allergies Active Allergy Reactions Severity Noted Date Comments Penicillins Rash 10/05/2014 Metoclopramide Hcl Unknown - See comments 12/21/2014 Methylphenidate Anxiety 10/05/2014 documented as of this encounter (statuses as of 07/28/2019) Medications Medication Sig Dispensed Refills Start Date [...] for Chest pain. mometasone (NASONEX) Use 1 [place] in each 0 Active 50 mcg/actuation nostril. 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 Anxiety state 11/04/2007 Overview: ICD10 Diagnosis Term Steeplechase Jockey Utility Insomnia 11/04/2007 Overview: ICD10 Diagnosis Term Steeplechase Jockey Utility Other chest pain 07/09/2007 Essential hypertension, benign 07/09/2007 HLD (hyperlipidemia) 07/09/2007 Overview: ICD10 Diagnosis Term Steeplechase Jockey Utility gerd 07/09/2007 Chronic obstructive airway disease with asthma 07/09/2007 Overview: ICD10 Diagnosis Term Steeplechase Jockey Utility documented as of this encounter (statuses as of 07/28/2019) Immunizations Name Administration Dates Next Due Influenza [...] Team Description 08/02/2019 Hospital Encounter Surgery Tyler Henson MD [address] [place] [address] [phone] 08/02/2019 Anesthesia Event Surgery Minerva Ba, MAIL HANDLER EQUIPMENT OPERATOR [address] [place] [address] [phone] 08/02/2019 Surgery Surgery Tyler Henson CERVICAL EPIDURAL STEROID INJECTION [address] [place] [address] [phone] 08/16/2019 Hospital Encounter Surgery Tyler Henson MD [address] [place] [address] [phone] 08/16/2019 Surgery Surgery Tyler Henson CERVICAL EPIDURAL STEROID INJECTION [address] [place] [phone] 08/30/2019 Hospital Encounter Surgery Tyler Henson MD [address] [place] [phone] 08/30/2019 Surgery Surgery Tyler Henson CERVICAL EPIDURAL STEROID INJECTION [address] [place] [phone] Health Maintenance Due Date Last Done Comments [...] Associated Diagnosis Comments ASSIGNMENT OF BENEFITS Routine 07/28/2019 2:02 PM MANAGER DOCUMENT documented in this encounter Results Not on filedocumented in this encounter Insurance Payer Benefit Plan / Subscriber ID Effective Dates Phone Address Type Group [facility] ST[facility] xxxxxxxxx 2011-Present Medicaid COMM PLAN - PLUS MANAGED MEDICAID documented as of this encounter
--- OUTSIDE RECORDS SUMMARY | 2019-08-26 08:53 | XMS REPORT | Summary of Care ---
:1955 Author Organization [facility] Address [address] [place] [address] Care Team Providers Name Role Phone Tonio Miller Primary Care Provider Reason for Visit Reason Comments LAB WORK Auth/Cert Status Reason Specialty Diagnoses / Referred By Referred To Procedures Contact Contact Clinical Medical Diagnoses Low back pain Radiculopathy, lumbar region Low back pain [M54.5] Radiculopathy, lumbar region [M54.16] [facility] Laboratory Procedures CBC WITH DIFF PT AND PTT-LC HB BLEEDING TIME CBC,PT/PTT,BLEEDING TIME [address] [place] [address] Encounter Details Date Type Department Care Team Description 07/28/2019 Farm Hand Visit [facility] Tyler Henson MD [id number] [place] [address] Preop testing Professional Office Pob, 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 (Primary Dx) Building Phlebotomy Lab Professional Office Building [address] [facility] [address] , [address] [place] [address] Allergies Active Allergy Reactions Severity Noted Date [...] for Chest pain. mometasone (NASONEX) Use 1 [place] in each 0 Active 50 mcg/actuation nostril. 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 Anxiety state 11/04/2007 Overview: ICD10 Diagnosis Term Safety And Health Manager Utility Insomnia 11/04/2007 Overview: ICD10 Diagnosis Term Safety And Health Manager Utility Other chest pain 07/09/2007 Essential hypertension, benign 07/09/2007 HLD (hyperlipidemia) 07/09/2007 Overview: ICD10 Diagnosis Term Safety And Health Manager Utility gerd 07/09/2007 Chronic obstructive airway disease with asthma 07/09/2007 Overview: ICD10 Diagnosis Term Safety And Health Manager Utility documented as of this encounter (statuses [...] MD [address] [place] [phone] 08/02/2019 Anesthesia Event Surgery Minerva Ba, INDUSTRIAL MAINTENANCE INSTRUCTOR [address] [place] [address] 08/02/2019 Surgery Surgery Tyler Henson, CERVICAL EPIDURAL STEROID INJECTION [address] [place] [phone] 08/16/2019 Hospital Encounter Surgery Tyler Henson MD [address] [place] [phone] 08/16/2019 Surgery Surgery Tyler Henson CERVICAL EPIDURAL STEROID INJECTION [address] [place] [phone] 08/30/2019 Hospital Encounter Surgery Tyler Henson MD [address] [place] [phone] 08/30/2019 Surgery Surgery Tyler Henson, CERVICAL EPIDURAL STEROID INJECTION [id number] [place] [phone] Name Type Priority Associated Diagnoses Date/Time CBC WITH DIFF LAB Routine Preop testing 07/28/2019 2:47 PM LIGHT EQUIPMENT OPERATOR CBC WITH DIFFERENTIAL LAB Routine Preop testing 07/28/2019 2:47 PM LIGHT EQUIPMENT OPERATOR Name Type Priority Associated Diagnoses Order Schedule CBC WITH DIFF LAB Routine Preop testing Expected: 07/28/2019, Expires: 07/28/2020 Health Maintenance Due Date Last Done Comments [...] Completed 09/22/2007 documented as of this encounter Results Not on filedocumented in this encounter Visit Diagnoses Diagnosis Preop testing - Primary Preoperative examination, unspecified documented in this encounter Insurance Payer Benefit Plan / Subscriber ID Effective Dates Phone Address Type Group [facility] xxxxxxxxx 2011-Present Medicaid COMM PLAN - PLUS MANAGED MEDICAID documented as of this encounter
--- OUTSIDE RECORDS SUMMARY | 2019-08-26 08:53 | XMS REPORT | Summary of Care ---
:1955 Author Organization [facility] Address [address] [place] [address] Care Team Providers Name Role Phone Tonio Miller Primary Care Provider Reason for Referral (Routine) Status Reason Specialty Diagnoses / Referred By Referred To Procedures Contact Contact New Request Diagnostic Diagnoses Pain management Otis Henson Procedures FL TIME OR (NON-REPORTABLE) Tyler Bush MD [id number], [place] [address] Reason for Visit Auth/Cert Status Reason Specialty Diagnoses / Procedures Referred By Contact Referred To Contact Surgery Diagnoses Cervicalgia Radiculopathy, cervical region Cervicalgia, Radiculopathy lumbar region M54.2 (ICD-10-CM) - Cervicalgia M54.12 (ICD-10-CM) - Radiculopathy, cervical region Adc Pre/Pacu/Post Procedures CO NJX DX/THER SBST INTRLMNR CRV/THRC W/O IMG GDN CO NJX DX/THER SBST INTRLMNR CRV/THRC W/IMG GDN CHG FLUOR NEEDLE/CATH SPINE/PARASPINAL DX/THER ADDON CERVICAL EPIDURAL STEROID INJECTION [address] [place] [address] Encounter Details Date Type Department Care Team Description 08/02/2019 Hospital [facility] [address] [facility] [address] [place] [address] [facility] [phone] [address] [place] [phone] Allergies Active Allergy Reactions Severity Noted Date Comments Penicillins Rash 10/05/2014 Metoclopramide Hcl Unknown - See comments 12/21/2014 Methylphenidate Anxiety 10/05/2014 documented as of this encounter (statuses as of 08/02/2019) Medications Medication Sig Dispensed Refills Start End Date Status Date PROAIR HFA 90 Inhale 2 Puffs 5 Active mcg/actuation every 6 (six) 5 inhaler hours as needed for Wheezing or Shortness of Breath. CREON Take 2 Tabs by 0 Active 36,000-114,000- mouth 2 (two) 5 180,000 unit CpDR times daily. esomeprazole Take 40 mg by 0 Active (NEXIUM) 40 mg mouth daily. capsule budesonide-formoter Inhale 2 Puffs 2 0 Active ol (SYMBICORT) (two) times 160-4.5 daily. mcg/actuation inhaler nitroglycerin Place 0.4 mg 0 Active (NITROSTAT) 0.4 mg under the tongue sublingual tablet every 5 (five) minutes as needed for Chest pain. mometasone Use 1 [place] in 0 Active (NASONEX) 50 each nostril. mcg/actuation nasal spray aspirin (ASPIRIN Take 1 tablet by 30 tablet 3 Active LOW DOSE) 81 mg EC mouth daily. 7 tablet proMETHazine 12.5 Take 1 tablet by 30 tablet 0 Active mg tablet mouth every 6 7 (six) hours as needed for Nausea and Vomiting (N/V). atorvastatin 40 mg Take 1 tablet by 30 tablet 3 Active tablet mouth at bedtime. 7 atenolol 100 mg Take 100 mg by 2 Active tablet mouth daily. 7 VITAMIN D2 50,000 Take 50,000 Units 0 Active unit capsule by mouth weekly. 7 HYDROcodone-acetami Take 1 tablet by 0 Active nophen 10-325 mg mouth as needed. 7 tablet isosorbide Take 30 mg by 0 Active mononitrate 30 mg mouth as needed. 7 24 hr tablet clopidogrel Take 75 mg by 0 Active (PLAVIX) 75 mg mouth daily. tablet nortriptyline 25 mg Take 1 capsule by 60 capsule 1 Active capsule mouth at bedtime. 7 cyanocobalamin 1 mL by 10 mL 1 Active (VITAMIN B-12) Intramuscular 7 1,000 mcg/mL route once every injection month. LEVOTHYROXINE 50 TAKE 1 TABLET BY 30 tablet 0 Active mcg MOUTH EVERY 9 tabletIndications: MORNING. Hypothyroidism (acquired) psyllium-sucrose Take 1 Packet by 540 g 2 Active (METAMUCIL, SUGAR,) mouth 3 (three) 9 powderIndications: times daily. Hemorrhoids, unspecified hemorrhoid type ibuprofen 600 mg Take 1 tablet by 30 tablet 1 Active tabletIndications: mouth every 6 9 Hemorrhoids, (six) hours as unspecified needed for Pain hemorrhoid type (scale 1-3). HYDROcodone-acetami Take 1 tablet by 30 tablet 0 Active nophen (NORCO) mouth every 6 9 5-325 mg (six) hours as tabletIndications: needed for Pain Hemorrhoids, (scale 4-6) or unspecified Pain (scale hemorrhoid type 7-10). docusate (COLACE) Take 1 capsule by 60 capsule 1 Active 100 mg mouth 2 (two) 9 capsuleIndications: times daily. Hemorrhoids, unspecified hemorrhoid type furosemide 40 mg Take 40 mg by 0 Active tablet mouth daily. 0 furosemide (LASIX) Take 20 mg by 0 07/28/19 Discontinued 20 mg tablet mouth daily. 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 Anxiety state 11/04/2007 Overview: ICD10 Diagnosis Term [employer] Insomnia 11/04/2007 Overview: ICD10 Diagnosis Term [employer] Other chest pain 07/09/2007 Essential hypertension, benign 07/09/2007 HLD (hyperlipidemia) 07/09/2007 Overview: ICD10 Diagnosis Term [employer] gerd 07/09/2007 Chronic obstructive airway disease with asthma 07/09/2007 Overview: ICD10 Diagnosis Term [employer] documented as of this encounter (statuses [...] of this encounter Last Filed Vital Signs Vital Sign Reading Time Taken Comments Blood Pressure 158/82 08/02/2019 8:51 AM PEDIATRIC SPEECH THERAPIST Pulse 65 08/02/2019 8:51 AM PEDIATRIC SPEECH THERAPIST Temperature 36.6 C (97.8 F) 08/02/2019 8:36 AM PEDIATRIC SPEECH THERAPIST Respiratory Rate 16 08/02/2019 8:51 AM PEDIATRIC SPEECH THERAPIST Oxygen Saturation 98% 08/02/2019 8:51 AM PEDIATRIC SPEECH THERAPIST Inhaled Oxygen Concentration - - Weight 83.9 kg (185 lb) 07/28/2019 10:00 AM PEDIATRIC SPEECH THERAPIST Height 165.1 cm (5' 5") 07/28/2019 10:00 AM PEDIATRIC SPEECH THERAPIST Body Mass Index 30.79 07/28/2019 10:00 AM PEDIATRIC SPEECH THERAPIST documented in this encounter Discharge Summaries Tyler Henson MD - 08/02/2019 7:25 AM CSTCONDITION AT DISCHARGE: Patient was discharged from the facility in stable condition. Please see discharge instructions. FOLLOW UP CARE: See post op instructions. DISCHARGE DISPOSITION: HOME DISCHARGE INSTRUCTIONS GIVEN TO: PATIENT documented in this encounter Discharge Instructions Cyndie Cuevas RN - 08/02/2019POST OPERATIVE DISCHARGE INSTRUCTIONS For patients who have had local anesthesia with sedation or general anesthesia: 1. The medicine which was used for sedation or to put you to sleep will be acting in your body for the next 24 hours. You might feel a little sleepy when you get home. This feeling will slowly wear off. For the next 24 hours, the adult patient should not: A. Drive a car, operate machinery or power tools. B. Drink any alcoholic beverages (including beer). C. Make any important decisions, such as sign important papers. D. Children should rest at home, but may be up and about according to the doctor 's instructions. 2. You may have some pain. A prescription for pain may be given by the doctor. This should be taken as directed. If the doctor prescribes nothing for pain you may take a non-prescription pain medication, which can be purchased at the drug store. Please follow directions on the label. 3. Eat light foods (Jell-o, soup, crackers, soft drinks, etc.) as tolerated without feeling sick to your stomach, then progressing to more solid foods. Drink as much liquid as you can tolerate. 4. We strongly suggest that a responsible adult be with you for the rest of the day and also during the night for your protection and safety. 5. Refer any questions regarding your condition and report any of the following signs to your surgeon: A. Excessive bleeding from surgical area. B. Excessive swelling of or around surgical area. C. Redness of surgical area. D. Temperature of 101 degrees or above. E. Excessive pain not relieved by medication. F. Numbness or weakness. 6. Call Dr. Henson for any problems and for follow up appointment. 7. If unable to reach your physician, call [facility] at [phone] for physician helper steel fabrication. In case of emergency, go to nearest emergency room. 8. Your symptoms may remain the same or occasionally become a little worse over the next 48 hours. Rest and the application of a cold compress may resolve these symptoms. APPOINTMENT HAS BEEN SCHEDULED FOR: DATE: TIME: documented in this encounter Plan of Treatment Date Type Specialty Care Team Description 08/16/2019 Hospital Encounter Surgery Tyler Henson MD [id number] [place] [phone] 08/16/2019 Surgery Surgery Tyler Henson, CERVICAL EPIDURAL STEROID INJECTION [id number], [place] [address] [phone] 08/30/2019 Hospital Encounter Surgery Tyler Henson MD [id number] [place] [address] [phone] 08/30/2019 Surgery Surgery Tyler Henson, CERVICAL EPIDURAL STEROID INJECTION [id number] [place] [address] [phone] Health Maintenance Due Date Last Done Comments [...] Procedure Name Priority Date/Time Associated Diagnosis Comments FL TIME OR Routine 08/02/2019 8:15 AM Pain management Results for this (NON-REPORTABLE) PEDIATRIC SPEECH THERAPIST procedure are in the results section. POCT GLUCOSE(AGE Routine 08/02/2019 7:15 AM Results for this >30DAYS) PEDIATRIC SPEECH THERAPIST procedure are in the results section. documented in this encounter Results FL TIME OR (NON-REPORTABLE) (08/02/2019 8:15 AM PEDIATRIC SPEECH THERAPIST) Specimen Narrative Performed At These images do not require a Radiology diagnostic report. PACS Performing Organization Address City/State/Zipcode Phone Number PACS POCT Glucose (08/02/2019 7:15 AM PEDIATRIC SPEECH THERAPIST) POCT Glu (age>30days) 84 70 - 110 mg/dL Specimen Blood - CAPILLARY documented in this encounter Visit Diagnoses Diagnosis Pain management - Primary Other specified rehabilitation procedure documented in this encounter Administered Medications Medication Order MAR Action Action Date Dose Rate Site FENTanyl PF (SUBLIMAZE (PF)) injection 50 mcg 50 mcg, Slow IV Push, Q5MIN PRN, 2 doses, Starting 08/02/19 at 0834, Until Discontinued, Routine, Pain (scale 4-6), PACU NaCl 0.9% (NS) IV infusion 500 mL New Bag 08/02/2019 7:17 AM PEDIATRIC SPEECH THERAPIST 500 mL 42 mL/hr at 42 mL/hr, IV Infusion, CONTINUOUS, Starting 08/02/19 at 0715, Until Discontinued, Routine, DSU Pre-op Medication Order MAR Action Action Date Dose Rate Site iohexol (OMNIPAQUE 240-10 mL) Given 08/02/2019 8:05 AM PEDIATRIC SPEECH THERAPIST 5 mL injection 10 mL 10 mL, Intravenous, ONCE, 1 dose, 08/02/19 at 0930, Routine ondansetron (ZOFRAN (PF)) injection 4 mg Given 08/02/2019 7:22 AM PEDIATRIC SPEECH THERAPIST 4 mg 4 mg, Slow IV Push, ONCE NOW, 1 dose, 08/02/19 at 0730, Routine, DSU Pre-op documented in this encounter Insurance Payer Benefit Plan / Subscriber ID Effective Dates Phone Address Type Group [facility] xxxxxxxxx 2011-Present Medicaid COMM PLAN - PLUS MANAGED MEDICAID documented as of this encounter
--- OUTSIDE RECORDS SUMMARY | 2019-08-26 08:54 | XMS REPORT | Summary of Care ---
:1955 Author Organization [facility] Address [address] [place] [address] Care Team Providers Name Role Phone Tonio Miller Primary Care Provider Reason for Referral (Routine) Status Reason Specialty Diagnoses / Referred By Referred To Procedures Contact Contact New Request Diagnostic Diagnoses Pain management [place], Radiology Procedures FL TIME OR (NON-REPORTABLE) Tyler Bush MD [id number] [place] [address] Reason for Visit Auth/Cert Status Reason Specialty Diagnoses / Procedures Referred By Contact Referred To Contact Surgery Diagnoses Cervicalgia Radiculopathy, cervical region Cervicalgia, Radiculopathy lumbar region M54.2 (ICD-10-CM) - Cervicalgia M54.12 (ICD-10-CM) - Radiculopathy, cervical region Adc Pre/Pacu/Post Procedures [place] NJX DX/THER SBST INTRLMNR CRV/THRC W/O IMG GDN [place] NJX DX/THER SBST INTRLMNR CRV/THRC W/IMG GDN CHG FLUOR NEEDLE/CATH SPINE/PARASPINAL DX/THER ADDON CERVICAL EPIDURAL STEROID INJECTION [address] [place] [id number] - [place] NJX DX/THER SBST INTRLMNR CRV/THRC W/O IMG [place] [id number] - [place] NJX DX/THER SBST INTRLMNR CRV/THRC W/IMG GDN [id number] - CHG FLUOR NEEDLE/CATH SPINE/PARASPINAL DX/[place] [address] Encounter Details Date Type Department Care Team Description 08/23/2019 Hospital Encounter [facility] SixtoTyler pollard, [place] [address] [facility] [address] [place] [address] [id number] [facility] [place] [phone] Allergies Active Allergy Reactions Severity Noted Date Comments Penicillins Rash 10/05/2014 Metoclopramide Hcl Unknown - See comments 12/21/2014 Methylphenidate Anxiety 10/05/2014 documented as of this encounter (statuses as of 08/23/2019) Medications Medication Sig Dispensed Refills Start Date [...] for Chest pain. mometasone (NASONEX) Use 1 [place] in each 0 Active 50 mcg/actuation nostril. 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 Anxiety state 11/04/2007 Overview: ICD10 Diagnosis Term [employer] Insomnia 11/04/2007 Overview: ICD10 Diagnosis Term [employer] Other chest pain 07/09/2007 Essential hypertension, benign 07/09/2007 HLD (hyperlipidemia) 07/09/2007 Overview: ICD10 Diagnosis Term [employer] gerd 07/09/2007 Chronic obstructive airway disease with asthma 07/09/2007 Overview: ICD10 Diagnosis Term [employer] documented as of this encounter (statuses as of 08/23/2019) Immunizations Name Administration Dates Next Due Influenza [...] Sign Reading Time Taken Comments Blood Pressure 114/59 08/23/2019 8:50 AM CHAIN HOOKER Pulse 65 08/23/2019 8:55 AM CHAIN HOOKER Temperature 36.2 C (97.1 F) 08/23/2019 8:35 AM CHAIN HOOKER Respiratory Rate 18 08/23/2019 8:35 AM CHAIN HOOKER Oxygen Saturation 97% 08/23/2019 8:55 AM CHAIN HOOKER Inhaled Oxygen Concentration - - Weight 83.9 kg (184 lb 15.5 oz) 08/23/2019 8:03 AM CHAIN HOOKER Height 165.1 cm (5' 5") 08/23/2019 8:03 AM CHAIN HOOKER Body Mass Index 30.78 08/23/2019 8:03 AM CHAIN HOOKER documented in this encounter Discharge Summaries Tyler Henson MD - 08/23/2019 8:02 AM CSTCONDITION AT DISCHARGE: Patient was discharged from the facility in stable condition. Please see discharge instructions. FOLLOW UP CARE: See post op instructions. DISCHARGE DISPOSITION: HOME DISCHARGE INSTRUCTIONS GIVEN TO: PATIENT documented in this encounter Discharge Instructions Cyndie Cuevas RN - 08/23/2019POST OPERATIVE DISCHARGE INSTRUCTIONS For patients who have [...] If unable to reach your physician, call [facility] at [phone] for physician parks recreation director. In case of emergency, go to nearest emergency room. 8. Your symptoms may remain the same or occasionally become a little worse over the next 48 hours. Rest and the application of a cold compress may resolve these symptoms. APPOINTMENT HAS BEEN SCHEDULED FOR: DATE: TIME: documented in this encounter Plan of Treatment Date Type Specialty Care Team Description 08/30/2019 Hospital Encounter Surgery Tyler Henson MD [id number], [place] [phone] 08/30/2019 Surgery Surgery Tyler Henson, CERVICAL EPIDURAL STEROID INJECTION [id number], [place] [phone] Name Type Priority Associated Diagnoses Date/Time POCT Glucose LAB Routine 08/23/2019 8:00 AM CHAIN HOOKER Name Type Priority Associated Diagnoses Order Schedule POCT Glucose LAB Routine ONCE for 1 Occurrences starting 08/23/2019 until 08/23/2019 Health Maintenance Due Date Last Done Comments [...] Associated Diagnosis Comments FL TIME OR Routine 08/23/2019 8:38 AM Pain management Results for this (NON-REPORTABLE) CHAIN HOOKER procedure are in the results section. documented in this encounter Results FL TIME OR (NON-REPORTABLE) (08/23/2019 8:38 AM CHAIN HOOKER) Specimen Narrative Performed At These images do not require a Radiology diagnostic report. PACS Performing Organization Address City/State/Zipcode Phone Number PACS documented in this encounter Visit Diagnoses Diagnosis Pain management - Primary Other specified rehabilitation procedure documented in this encounter Administered Medications Medication Order MAR Action Action Date Dose Rate Site bupivacaine (preserv free) Given 08/23/2019 8:31 AM CHAIN HOOKER 10 mL See Comment (SENSORCAINE MPF) 0.25 % (2.5 mg/mL) injection PRN, Starting 08/23/19 at 0831, Until Discontinued, Routine, Intra-op iohexol (OMNIPAQUE 350 BULK-50 mL) Given 08/23/2019 8:30 AM CHAIN HOOKER 10 mL See Comment injection PRN, Starting 08/23/19 at 0830, Until Discontinued, Routine, Intra-op lidocaine 1% (XYLOCAINE) 10 mg/mL (1 Given 08/23/2019 8:29 AM CHAIN HOOKER 6 mL See Comment %) injection PRN, Starting 08/23/19 at 0829, Until Discontinued, Routine, Intra-op NaCl 0.9% (NS) IV infusion 500 mL New Bag 08/23/2019 7:43 AM CHAIN HOOKER 500 mL 42 mL/hr at 42 mL/hr, IV Infusion, CONTINUOUS, Starting 08/23/19 at 0730, Until Discontinued, Routine, DSU Pre-op ondansetron (ZOFRAN (PF)) injection 4 mg 4 mg, Slow IV Push, PRN, 1 dose, Starting 08/23/19 at 0852, Until Discontinued, Routine, Nausea and Vomiting (N/V), PACU triamcinolone acetonide (KENALOG) Given 08/23/2019 8:32 AM CHAIN HOOKER 40 mg See Comment injection PRN, Starting 08/23/19 at 0832, Until Discontinued, Routine, Intra-op documented in this encounter Insurance Payer Benefit Plan / Subscriber ID Effective Dates Phone Address Type Group [facility] xxxxxxxxx 2011-Present Medicaid COMM PLAN - PLUS MANAGED MEDICAID documented as of this encounter
--- OUTSIDE RECORDS SUMMARY | 2019-08-26 08:54 | XMS REPORT ---
:1955 Author Organization [employer] Care Team Providers Name Role Phone Sarahy Millerh Provider Role Unavailable Allergies, Adverse Reactions, Alerts Substance Reaction Event Type PCN hives Drug Allergy Metoclopramide HCl anxiety Drug Allergy Problems Problem Type Condition Code Onset Dates Condition Status Assessment Atherosclerosis of coronary artery I25.10 Active of robinson heart Assessment Stented coronary artery Z95.5 Active [...] Atherosclerosis of coronary artery I25.10 Active of robinson heart Problem Other chronic pain G89.29 Active Problem Chronic obstructive pulmonary J44.9 Active disease, unspecified COPD type Problem Insomnia G47.00 Active Problem Peripheral neuropathy G62.9 Active Assessment Elevated erythrocyte sedimentation R70.0 Active rate Problem Kidney stones N20.0 Active Problem Chronic [...] Start End Status Dosage System Date Date Simvastatin [facility] 07731669046 40 MG Orally Active 1 tablet in Once a day the evening Docusate Sodium [facility] 04699548205 100 MG Active TAKE 1 CAPSULE BY MOUTH TWICE A DAY Clopidogrel [facility] 84843769428 75 MG Orally Active 1 tablet Bisulfate Once a day Synthroid [facility] 72179870165 50 MCG Orally Active 1 tablet on Once a day an empty stomach in the morning Vitamin B12 [facility] 44888196089 1000 MCG Orally Active 1 tablet Once a day Furosemide [facility] 15945542518 20 MG Orally Active 1 tablet Once a day Venlafaxine HCl [facility] 95311173539 75 MG Active TAKE 1 ER CAPSULE BY MOUTH EVERY DAY Nasonex [facility] 88377473566 50 MCG/ACT Active 2 sprays in Nasally Once a each nostril day ProAir HFA [facility] 11114634249 108 (90 Base) Active 2 puffs as MCG/ACT needed Inhalation every 6 hrs Loratadine [facility] 24851128782 10 MG Orally Active 1 tablet Once a day Simvastatin [facility] 05709508414 40 MG Orally Active 1 tablet in Once a day the evening Aspirin [facility] 41439289623 81 MG Active TAKE 1 TABLET BY MOUTH EVERY DAY Nexium [facility] 67244523472 40 MG Active TAKE ONE CAPSULE BY MOUTH EVERY DAY Clotrimazole [facility] 12932368763 1 % Externally Jul 06August Active 1 application Twice a day 2019 Hydrocodone-Familia [facility] 01159914709 5-325 MG Orally Active 1 tablet as taminophen every 6 hrs needed Atenolol ND 93844802948 100 MG PO Once Active TAKE 1 TABLET daily BY MOUTH EVERY DAY Promethazine [facility] 82320541867 25 MG/ML Active 1 ml as HCl Injection every needed 6 hrs Trelegy Ellipta [facility] 68790739694 100-62.5-25 Active 1 puff MCG/INH Inhalation Once a day Atenolol [facility] 83680716524 100 MG Active TAKE 1 TABLET BY MOUTH EVERY DAY Venlafaxine HCl [facility] 70165339755 75 MG Active TAKE ONE ER CAPSULE BY MOUTH EVERY DAY Results No Known Results Summary Purpose [employer] Submission
--- OUTSIDE RECORDS SUMMARY | 2019-08-26 08:55 | XMS REPORT | Summary of Care ---
:1955 Author Organization [facility] - Health Address [address] [place] [id number] Care Team Providers Name Role Phone Tonio Miller Primary Care Provider Reason for Visit Auth/Cert Status Reason Specialty Diagnoses / Procedures Referred By Contact Referred To Contact Surgery Diagnoses Cervicalgia Radiculopathy, cervical region Cervicalgia, Radiculopathy lumbar region M54.2 (ICD-10-CM) - Cervicalgia M54.12 (ICD-10-CM) - Radiculopathy, cervical region Adc Pre/Pacu/Post Procedures ID NJX DX/THER SBST INTRLMNR CRV/THRC W/O IMG GDN ID NJX DX/THER SBST INTRLMNR CRV/THRC W/IMG GDN CHG FLUOR NEEDLE/CATH SPINE/PARASPINAL DX/THER OLIVIA CERVICAL EPIDURAL STEROID INJECTION [address] [place] [id number] - ID NJX DX/THER SBST INTRLMNR CRV/THRC W/O IMG GDN [id number] - ID NJX DX/THER SBST INTRLMNR CRV/THRC W/IMG GDN [id number] - CHG FLUOR NEEDLE/CATH SPINE/PARASPINAL DX/[place] [address] Encounter Details Date Type Department Care Team Description 08/23/2019 Anesthesia [facility] [place] Stalin Tidwell MD [address] [place] [phone] [facility] Minerva Ba, NOLAN [address] [place] [address] Dr Pan, [place] [phone] [place] [address] Dr Pan, [place] [address] Allergies Active Allergy Reactions Severity Noted Date [...] for Chest pain. mometasone (NASONEX) Use 1 [place] in each 0 Active 50 mcg/actuation nostril. 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 Anxiety state 11/04/2007 Overview: ICD10 Diagnosis Term Body Masker Utility Insomnia 11/04/2007 Overview: ICD10 Diagnosis Term Body Masker Utility Other chest pain 07/09/2007 Essential hypertension, benign 07/09/2007 HLD (hyperlipidemia) 07/09/2007 Overview: ICD10 Diagnosis Term Body Masker Utility gerd 07/09/2007 Chronic obstructive airway disease with asthma 07/09/2007 Overview: ICD10 Diagnosis Term Body Masker Utility documented as of this encounter (statuses [...] Sign Reading Time Taken Comments Blood Pressure - - Pulse - - Temperature - - Respiratory Rate 22 08/23/2019 8:32 AM FARM LOAN REPRESENTATIVE Oxygen Saturation - - Inhaled Oxygen Concentration - - Weight - - Height - - Body Mass Index - - documented in this encounter Plan of Treatment Date Type Specialty Care Team Description 08/30/2019 Hospital Encounter Surgery Tyler Henson MD [id number] [place] [address] [phone] 08/30/2019 Surgery Surgery Tyler Henson, CERVICAL EPIDURAL STEROID MD INJECTION [id number] [place] [address] [phone] Health Maintenance Due Date Last Done Comments [...] Results Not on filedocumented in this encounter Administered Medications Medication Order MAR Action Action Date Dose Rate Site lactated ringers IV infusion New Bag 08/23/2019 8:23 AM FARM LOAN REPRESENTATIVE Intravenous, CONTINUOUS PRN, Starting 08/23/19 at 0823, Until 08/23/19 at 0835, Routine, Intra-op ondansetron (ZOFRAN (PF)) injection Given 08/23/2019 8:30 AM FARM LOAN REPRESENTATIVE 4 mg ONCE INTRA PROCEDURE, Starting 08/23/19 at 0830, Until 08/23/19 at 0840, Routine, Intra-op propofol IV infusion New Bag 08/23/2019 8:28 AM 150 mcg/kg/min 75.51 mL/hr CONTINUOUS PRN, Starting Mon FARM LOAN REPRESENTATIVE 08/23/19 at 0828, Until 08/23/19 at 0835, Routine, Intra-op propofol IV infusion Given 08/23/2019 8:30 AM FARM LOAN REPRESENTATIVE 20 mg ONCE INTRA PROCEDURE, Starting 08/23/19 at 0828, Until 08/23/19 at 0957, Routine, Intra-op Given 08/23/2019 8:28 AM FARM LOAN REPRESENTATIVE 20 mg documented in this encounter Insurance Payer Benefit Plan / Subscriber ID Effective Dates Phone Address Type Group [facility] xxxxxxxxx 2011-Present Medicaid COMM PLAN - PLUS MANAGED MEDICAID documented as of this encounter
--- OUTSIDE RECORDS SUMMARY | 2019-08-26 08:55 | XMS REPORT ---
:1955 Author Organization [facility] Address [address] [place] [address] Care Team Providers Name Role Phone Unavailable [...] HIGH.........130-159 mg/dL HIGH.........160-189 mg/dL VERY HIGH.........>/=190 mg/dL [id number] 08:02:00 Test Item Value Reference Range Comments MAGNESIUM (test code=MAG) 2.0 MG/DL 1.6-2.3 LIPID PROFILE (CORONARY RISK)2018-08-01 07:51:00 Test Item Value Reference Range Comments TRIGLYCERIDES (test code=TRIG) 194 MG/DL TRIGLYCERIDES REFERENCE RANGE:Normal: <150 mg/dLBorderline High: 150-199 mg/dLHigh: 200-499 mg/dLVery High: >=500 mg/dL CHOLESTEROL (test code=CHOL) 206 MG/DL <200 HDL CHOLESTEROL (test 59 MG/DL 40-59 code=HDL) LIPOPROTEIN LDL (test MG/DL 0-99 code=LDL) [id number] 07:51:00 Test Item Value Reference Range Comments MAGNESIUM (test code=MAG) 2.0 MG/DL 1.6-2.3 PROTHROMBIN [id number] 07:37:00 Test Item Value Reference Range Comments [...] recurrent systemic embolism. 3.0 - 4.5 PTT [id number] 07:37:00 Test Item Value Reference Range Comments PTT ACTIVATED (test code=APTT) 26.7 SECONDS 22.0-33.0 [id number] 01:26:00 Test Item Value Reference Range Comments TROPONIN-I (test code=TROPI) < 0.012 NG/ML 0.012-0.033 HEPATIC FUNCTION [id number] 18:44:00 Test Item Value Reference Range Comments TOTAL PROTEIN (test code=PROT) 7.2 G/DL 6.3-8.2 ALBUMIN (test code=ALB) 3.6 G/DL 3.5-5.0 BILIRUBIN TOTAL (test code=BILT) 0.9 MG/DL 0.2-1.3 BILIRUBIN DIRECT (test code=BILD) 0.0 MG/DL 0.0-0.3 SGOT/AST (test code=AST) 27 UNITS/L 14-36 SGPT/ALT (test code=ALT) 19 UNITS/L 9-52 ALKALINE PHOSPHATASE (test code=ALKP) 77 UNITS/L 38-126 BASIC METABOLIC [id number] 18:15:00 Test Item Value Reference Range Comments SODIUM (test code=NA) 140 MMOL/L 137-145 POTASSIUM (test code=K) 4.0 MMOL/L 3.5-5.1 CHLORIDE (test code=CL) 110 MMOL/L 98-107 CARBON DIOXIDE (test code=CO2) 23 MMOL/L 22-30 GLUCOSE (test code=GLU) 105 MG/DL 74-106 BLOOD UREA NITROGEN (test 20 MG/DL 01-06 code=BUN) GLOMERULAR FILTRATION RATE > 60 Reporting units: ml/min/1.73 (test code=GFR) m2 (Modified MDRD Formula)Reference Range: > or=60 ml/min/1.73 m2 CREATININE (test code=CREAT) 0.60 MG/DL 0.52-1.04 CALCIUM (test code=CA) 8.9 MG/DL 8.4-10.2 [id number] 18:15:00 Test Item Value Reference Range Comments TROPONIN-I (test code=TROPI) < 0.012 NG/ML 0.012-0.033 BASIC METABOLIC [id number] 18:03:00 Test Item Value Reference Range Comments [...] 0.52-1.04 CALCIUM (test code=CA) 8.9 MG/DL 8.4-10.2 [id number] 18:03:00 Test Item Value Reference Range Comments TROPONIN-I (test code=TROPI) NG/ML 0.0-0.045 CBC W/O [id number] 17:39:00 Test Item Value Reference Range Comments [...]
--- OUTSIDE RECORDS SUMMARY | 2019-08-26 08:55 | XMS REPORT | Summary of Care ---
:1955 Author Organization [facility] - Health Address [address] [place] [address] Care Team Providers Name Role Phone Tonio Miller Primary Care Provider Encounter Details Date Type Department Care Team Description 08/23/2019 Orders Only [facility] Doctor Unassigned, No [address] [facility] [place] [address] [place] [id number] Allergies Active Allergy Reactions Severity Noted Date Comments Penicillins Rash 10/05/2014 Metoclopramide Hcl Unknown - See comments 12/21/2014 Methylphenidate Anxiety 10/05/2014 documented as of this encounter (statuses as of 08/24/2019) Medications Medication Sig Dispensed Refills Start Date [...] for Chest pain. mometasone (NASONEX) Use 1 [place] in each 0 Active 50 mcg/actuation nostril. 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 Anxiety state 11/04/2007 Overview: ICD10 Diagnosis Term Data Integration Architect Utility Insomnia 11/04/2007 Overview: ICD10 Diagnosis Term Data Integration Architect Utility Other chest pain 07/09/2007 Essential hypertension, benign 07/09/2007 HLD (hyperlipidemia) 07/09/2007 Overview: ICD10 Diagnosis Term Data Integration Architect Utility gerd 07/09/2007 Chronic obstructive airway disease with asthma 07/09/2007 Overview: ICD10 Diagnosis Term Data Integration Architect Utility documented as of this encounter (statuses as of 08/24/2019) Immunizations Name Administration Dates Next Due Influenza [...] [id number] [place] [phone] 08/30/2019 Surgery Surgery Tyler Henson, CERVICAL EPIDURAL STEROID INJECTION [id number] [place] [phone] Health Maintenance Due Date Last Done Comments [...] Diagnosis Comments DAY SURGERY - ADC Routine 08/23/2019 12:[address] 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
[2019-08-26 10:28] LABS: Absolute Lymphocytes (CBC) 1.9 K/uL (0.7-4.9); Basophils % 0.4 % (0-1.3); Hematocrit 45.1 % (36.0-45.0); Lymphocytes % 27.8 % (15.3-44.8); MPV 8.8 fL (7.6-11.3); RBC Red Blood Cell Count 4.81 M/uL (3.86-4.86)
[2019-08-26 10:40] LABS: Albumin 3.7 g/dL (3.4-5.0); Bilirubin Direct 0.2 mg/dL (0-0.2); Bilirubin Total 0.7 mg/dL (0.2-1.0); Potassium 3.8 mmol/L (3.5-5.1); Protein, Total 8.5 g/dL (6.4-8.2)
[2019-08-26 11:01] LABS: Urine Blood 2+ (NEG); Urine Glucose NEGATIVE (NEG); Urine Protein 1+ (NEG); Urine Specific Gravity 1.025 (1.005-1.030); Urine pH 6.5 (5.0-7.0)
[2019-08-26] MEDS ORDERED: MORPHINE 4 MG/ML SYR ONE ×2 (11:02→15:20)
[2019-08-26] MEDS ORDERED: ONDANSETRON 4 MG/2 ML VIAL ONE ×2 (11:02→15:20)
--- NOTE | 2019-08-26 12:03 | RAD REPORT ---
EXAM DESCRIPTION: CT - Abdomen Pelvis W Contrast - 08/26/2019 11:44 am CLINICAL HISTORY: vaginal bleeding and pressure;Abd pain COMPARISON: Abdomen Pelvis W Contrast dated 12/31/2018; Abdomen Pelvis W Contrast dated 08/04/2016 TECHNIQUE: Biphasic, helical CT imaging of the abdomen and pelvis was performed following 100 ml non -ionic IV contrast. Oral contrast was given. All CT scans are performed using dose optimization technique as appropriate and may include automated exposure control or mA/KV adjustment according to patient size. FINDINGS: No suspicious findings in the lung bases. Liver shows a mild diffuse fatty infiltration pattern with no focal liver lesion. Spleen and pancreas show no suspicious findings. Very slight fullness of the pancreatic tail matches the prior study. Th is tissue is isodense to the remainder of the pancreas. Cholecystectomy clips are present. No biliary tree dilatation. An irregular shaped 7 mm stone is present in the right collecting system and the UPJ/proximal ureter region. There is mild dilatation of the pelvis. Right renal function is not grossly delayed or asymme tric with the left. Bilateral renal cysts are present. No solid mass or pyelonephritis. Urinary bladd er is fully contracted around a Wiggins catheter. No adrenal abnormalities. Uterus is absent. Ovaries a ppear to be absent as well or may be atrophic. There is some minimal remnant tissues it may be atroph ic ovarian tissue. These are stable findings. No adnexal mass. No perirectal or perianal abnormalitie s identified. No dilated bowel loops or bowel wall thickening. Appendix is normal. No free air, free fluid or infla mmatory stranding. Small fat only umbilical hernia is present. Disc and bony degenerative changes are present. IMPRESSION: Status post hysterectomy with ovarian tissue atrophic or absent. No abnormality seen adj acent to the rectum or vaginal vault. A 7 millimeter right kidney stone is present at the right UPJ/proximal ureter junction. No pyelonephr itis identified. No measurable delay or asymmetry of right renal function due to the stone. Fatty infiltration of the liver. No acute GI finding.
[2019-08-26] MEDS ORDERED: levoFLOXacin 750 MG TAB ONE (13:46)
[2019-08-26] MEDS ORDERED: D50W 25 GM/50 ML SYRINGE/VIAL IV ONE (16:55)
--- NOTE | 2019-08-26 18:19 | RAD REPORT ---
EXAM DESCRIPTION: US - Urinary Bladder - 08/26/2019 6:08 pm CLINICAL HISTORY: urinary retention COMPARISON: Abdomen Pelvis W Contrast dated 08/26/2019 FINDINGS: Limited pelvic sonography is performed to evaluate the urinary bladder. Urinary bladder is fully contracted. Wiggins catheter is in place. Position appears appropriate by sonography. Placement also appeared appropriate on the earlier CT study.
--- NOTE | 2019-08-26 18:31 | ER ---
Nurse's Notes [facility] Name: Toshia Barone Age: 64 yrs Sex: Female : 1955 Arrival Date: 08/26/2019 Time: 08:48 Bed 8 Private MD: Tonio Miller Diagnosis: Urinary tract infection, site not specified;Retention of urine Presentation: 08/25 09:03 Chief complaint: Patient states: Constant vaginal/suprapubic pain with bright red blood jl7 for "months" but worse today, reports vaginal odor as well. Coronavirus screen: The patient has NOT traveled to a country currently being monitored by the [facility] within the last 14 days. Proceed with normal triage procedures. Ebola Screen: No symptoms or risks identified at this time. Initial Sepsis Screen: Does the patient meet any 2 criteria? No. Patient's initial sepsis screen is negative. Does the patient have a suspected source of infection? No. Patient's initial sepsis screen is negative. Risk Assessment: Do you want to hurt yourself or someone else? Patient reports no desire to harm self or others. Onset of symptoms is unknown. Care prior to arrival: None. 09:03 Method Of Arrival: Ambulatory jl7 09:03 Acuity: SHARON 3 jl7 Triage Assessment: 09:13 General: Appears in no apparent distress. uncomfortable, Behavior is calm, cooperative, jl7 appropriate for age. Pain: Complains of pain in suprapubic area and groin Pain currently is 8 out of 10 on a pain scale. Neuro: Level of Consciousness is awake, alert, obeys commands, Oriented to person, place, time, situation. Cardiovascular: Patient's skin is warm and dry. Respiratory: Airway is patent Respiratory effort is even, unlabored, Respiratory pattern is regular, symmetrical. : Reports vaginal bleeding that is bright red. Derm: Skin is pink, warm \\T\\ dry. Historical: - Allergies: 09:13 methylphenidate HCl; jl7 09:13 PENICILLINS; jl7 09:13 Reglan; jl7 09:13 Ritalin; jl7 - Home Meds: 09:13 aspirin 81 mg Oral TbEC 1 tab once daily [Active]; atenolol 100 mg Oral tab 1 tab once jl7 daily [Active]; atorvastatin 40 mg Oral tab 1 tab nightly [Active]; Eliquis 2.5 mg Oral tab 1 tab 2 times per day [Active]; gabapentin 300 mg Oral cap 1 cap 3 times per day [Active]; isosorbide mononitrate 30 mg Oral Tb24 1 tab once daily [Active]; levothyroxine 50 mcg tab 1 tab once daily [Active]; Nexium 40 mg Oral cpDR 1 cap once daily [Active]; ProAir HFA 90 mcg/actuation inhalation HFAA 1 puff every 4 hours [Active]; promethazine 12.5 mg Oral tab 1 tab as needed [Active]; spironolactone 25 mg Oral tab 1 tab 2 times per day [Active]; Stool Softener 100 mg Oral cap 1 cap once daily [Active]; tramadol 50 mg Oral tab 2 tabs every 6 hours [Active]; Vitamin D [place] 70122 unit Q WEEK [Active]; - PMHx: 09:13 B12 deficiency; CHF; COPD; CVA; DVT; fatty liver; GERD; Hyperlipidemia; Hypertension; jl7 Hypothyroidism; Kidney stones; Myocardial infarction; Pancreatitis; TIA; - Immunization history:: Adult Immunizations not up to date. - Social history:: Smoking status: Patient denies any tobacco usage or history of. Screenin:24 Abuse screen: Denies threats or abuse. Denies injuries from another. Nutritional jl7 screening: No deficits noted. Tuberculosis screening: No symptoms or risk factors identified. Fall Risk IV access (20 points). Total Davidson Fall Scale indicates No Risk (0-24 pts). Assessment: 10:24 Reassessment: Straight cath inserted by Student Nurse with REZA Luke; 50 ml out; pt jl7 reported still feeling full of urine; bladder scanner done and showing 400 mL; ERD Notified and ordered Wiggins catheter. Wiggins inserted by Student with REZA Luke. 14:00 Reassessment: Bladder scanner shows 356 mL. ERD notified; VO for bladder irrigation. jl7 14:30 Reassessment: Bladder irrigated with 30 mL NS by REZA Luke. NS flows freely into bladder jl7 but unable to aspirate. ERD notified and ordered for Wiggins removal and replace with a 3 way Wiggins. 14:40 Reassessment: ERD at bedside for vaginal exam. jl7 15:20 Reassessment: Pt c/o nausea and pain, ERD notified, new orders received. jl7 15:45 Reassessment: 3 way Wiggins placed, irrigated with approximately 75 mL; NS flows freely jl7 into bladder, still unable to aspirate. ERD notified, no new orders received at this time. 16:30 Reassessment: Bladder scanner shower 243 mL; stood pt at side of bed, no change in jl7 urine output at this time. ERD notified. 16:53 Reassessment: Pt reports feelings jittery, requesting for a check of BGL, BGL 80, EDWARD whitman notified at gave VO for .5 amp of D50. Vital Signs: 09:03 BP 192 / 102; Pulse 70; Resp 16; Temp 97.7; Pulse Ox 99% ; Weight 86.18 kg; Height 5 jl7 ft. 5 in. (165.10 cm); Pain 8/10; 11:24 BP 159 / 88; Pulse 67; Resp 16; Temp 97.8(O); Pulse Ox 99% on R/A; mh5 12:34 BP 144 / 85; Pulse 59; Resp 16; Temp 98.0(O); Pulse Ox 96% on R/A; mh5 13:35 BP 148 / 84; Pulse 59; Resp 17; Temp 98.4(TE); Pulse Ox 100% on R/A; mh5 14:30 BP 170 / 90; Pulse 63; Resp 17; Pulse Ox 100% on R/A; mh5 15:47 BP 149 / 81; Pulse 63; Resp 16; Temp 97.4(TE); Pulse Ox 99% on R/A; mh5 17:18 BP 149 / 85; Pulse 61; Resp 16; Pulse Ox 99% on R/A; mh5 17:30 BP 145 / 84; Pulse 63; Resp 16 S; Pulse Ox 100% on R/A; jl7 09:03 Body Mass Index 31.62 (86.18 kg, 165.10 cm) jl7 ED Course: 08:48 Patient arrived in ED. mr 08:48 Tonio Miller DO is Private Physician. mr 08:54 Twyla Mackenzie, REZA is Primary Nurse. jl7 08:55 Guru Kaiser MD is Attending Physician. kdr 09:10 Triage completed. jl7 09:13 Arm band placed on right wrist. jl7 09:30 Straight cath inserted, using sterile technique, 16 Fr. Specimen obtained. Inserted by jl7 Students with Ti RN Returned cloudy urine. Patient tolerated poorly. 10:00 Wiggins cath inserted, using sterile technique, 18 Fr., by ED staff, balloon inflated, to jl7 gravity drainage, other Inserted by BC Student with Ti RN returned cloudy urine. Patient tolerated poorly. 10:15 Initial lab(s) drawn, by me, sent to lab. Inserted saline lock: 20 gauge in right jl7 antecubital area, using aseptic technique. Blood collected. 10:24 Patient has correct armband on for positive identification. Placed in gown. Bed in low jl7 position. Call light in reach. Side rails up X 1. Pulse ox on. NIBP on. Warm blanket given. 10:57 Radiology exam delayed due to ATTEMPTED TO GET PT FOR CT, PT WAS IN BATHROOM 1050. sw 11:10 IV discontinued, intact, bleeding controlled, No redness/swelling at site. Pressure jl7 dressing applied, 20 in Right AC discharge. 11:11 Note: ATTEMPTED A 2ND TIME TO GET PT, RN ADMINISTERING PAIN MEDS TO HELP PT FOR CT sw SCAN, AND MICHAEL FERRIS RN TO CALL CT WHEN PT IS READY 1100. 11:15 Inserted saline lock: 24 gauge in right upper arm, using aseptic technique. jl7 11:57 CT Abd/Pelvis - IV Contrast Only In Process Unspecified. EDMS 14:35 Wiggins cath removed intact, balloon deflated. jl7 15:35 3-way catheter inserted, using sterile technique, 18 Fr. Returned clear yellow urine. jl7 18:09 Urinary Bladder In Process Unspecified. EDMS 18:28 Tonio Miller DO is Referral Physician. kdr 18:50 No provider procedures requiring assistance completed. IV discontinued, intact, jl7 bleeding controlled, No redness/swelling at site. Pressure dressing applied. Administered Medications: 11:23 Drug: morphine 4 mg Route: IVP; Site: right upper arm; jl7 11:45 Follow up: Response: No adverse reaction; Pain is decreased jl7 11:26 Drug: Zofran (Ondansetron) 4 mg Route: IVP; Site: right upper arm; jl7 11:45 Follow up: Response: No adverse reaction jl7 13:45 Drug: LevaQUIN 750 mg Route: PO; rv 17:36 Follow up: Response: No adverse reaction jl7 15:22 Drug: Zofran (Ondansetron) 4 mg Route: IVP; Site: right upper arm; jl7 15:45 Follow up: Response: No adverse reaction; Nausea is decreased jl7 15:24 Drug: morphine 4 mg Route: IVP; Site: right upper arm; jl7 15:45 Follow up: Response: No adverse reaction; Pain is decreased jl7 16:58 Drug: D50W 25 ml Route: IVP; Site: right upper arm; jl7 18:49 Follow up: Response: No adverse reaction jl7 18:48 Drug: Bactrim (160 mg-800 mg (DS) 1 tablet Route: PO; jl7 18:49 Follow up: Response: Medication administered at discharge. jl7 18:48 Drug: Pyridium 200 mg Route: PO; jl7 18:50 Follow up: Response: Medication administered at discharge. jl7 Outcome: 18:29 Discharge ordered by . maco 18:50 Discharged to home ambulatory. [facility] 18:50 Condition: stable 18:50 Discharge instructions given to patient, Instructed on discharge instructions, follow up and referral plans. medication usage, Demonstrated understanding of instructions, follow-up care, medications, Prescriptions given X 2. 18:51 Patient left the ED. jl7 Signatures: Dispatcher [employer] EDMS Guru Kaiser MD MD kdr Rivera, Ana M mr Seth, Mindi Cuellar [facility] Twyla Mackenzie RN RN jl7 Christian Monreal RN RN rv
--- NOTE | 2019-08-26 18:31 | EDPHYS ---
Physician Documentation [facility] Name: Toshia Barone Age: 64 yrs Sex: Female : 1955 Arrival Date: 08/26/2019 Time: 08:48 Bed 8 Private MD: Sarahy Millerh ED Physician Guru Kaiser HPI: 08/25 09:18 This 64 yrs old Female presents to ER via Ambulatory with complaints of kdr Vaginal Pain, Vaginal Bleeding. 09:18 The patient presents with vaginal bleeding that is Vaginal bleeding and pressure. kdr "Feels like something wants to come out.". Onset: The symptoms/episode began/occurred gradually, 1 month(s) ago, and became worse and became persistent. Modifying factors: The symptoms are alleviated by nothing, the symptoms are aggravated by nothing. Associated signs and symptoms: Pertinent positives: hematuria, vaginal bleeding, vaginal discharge, Pertinent negatives: constipation, diarrhea, dysuria, fever, nausea, urinary frequency, vomiting. Severity of symptoms: At their worst the symptoms were moderate, in the emergency department the symptoms are unchanged. The patient's method of control includes hysterectomy. The patient has not experienced similar symptoms in the past. Urologist - but not fo this problem. Historical: - Allergies: 09:13 methylphenidate HCl; jl7 09:13 PENICILLINS; jl7 09:13 Reglan; jl7 09:13 Ritalin; jl7 - Home Meds: 09:13 aspirin 81 mg Oral TbEC 1 tab once daily [Active]; atenolol 100 mg Oral tab 1 tab once jl7 daily [Active]; atorvastatin 40 mg Oral tab 1 tab nightly [Active]; Eliquis 2.5 mg Oral tab 1 tab 2 times per day [Active]; gabapentin 300 mg Oral cap 1 cap 3 times per day [Active]; isosorbide mononitrate 30 mg Oral Tb24 1 tab once daily [Active]; levothyroxine 50 mcg tab 1 tab once daily [Active]; Nexium 40 mg Oral cpDR 1 cap once daily [Active]; ProAir HFA 90 mcg/actuation inhalation HFAA 1 puff every 4 hours [Active]; promethazine 12.5 mg Oral tab 1 tab as needed [Active]; spironolactone 25 mg Oral tab 1 tab 2 times per day [Active]; Stool Softener 100 mg Oral cap 1 cap once daily [Active]; tramadol 50 mg Oral tab 2 tabs every 6 hours [Active]; Vitamin D Oral 34874 unit Q WEEK [Active]; - PMHx: 09:13 B12 deficiency; CHF; COPD; CVA; DVT; fatty liver; GERD; Hyperlipidemia; Hypertension; jl7 Hypothyroidism; Kidney stones; Myocardial infarction; Pancreatitis; TIA; - Immunization history:: Adult Immunizations not up to date. - Social history:: Smoking status: Patient denies any tobacco usage or history of. ROS: 09:18 Constitutional: Negative for fever, chills, and weight loss, Eyes: Negative for injury, kdr pain, redness, and discharge, ENT: Negative for injury, pain, and discharge, Neck: Negative for injury, pain, and swelling, Cardiovascular: Negative for chest pain, palpitations, and edema, Respiratory: Negative for shortness of breath, cough, wheezing, and pleuritic chest pain, Back: Negative for injury and pain, MS/Extremity: Negative for injury and deformity, Skin: Negative for injury, rash, and discoloration, Neuro: Negative for headache, weakness, numbness, tingling, and seizure activity. Psych: Negative for depression, anxiety, suicide ideation, homicidal ideation, and hallucinations, Allergy/Immunology: Negative for hives, rash, and allergies, Endocrine: Negative for neck swelling, polydipsia, polyuria, polyphagia, and marked weight changes, Hematologic/Lymphatic: Negative for swollen nodes, abnormal bleeding, and unusual bruising. 09:18 Abdomen/GI: Positive for abdominal pain, abdominal cramps, Negative for abdominal distension, anorexia, dysphagia, hematemesis, black/tarry stool, rectal pain, rectal bleeding, bowel incontinence. Exam: 09:18 Constitutional: This is a well developed, well nourished patient who is awake, alert, kdr and in no acute distress. Head/Face: Normocephalic, atraumatic. Eyes: Pupils equal round and reactive to light, extra-ocular motions intact. Lids and lashes normal. Conjunctiva and sclera are non-icteric and not injected. Cornea within normal limits. Periorbital areas with no swelling, redness, or edema. Neck: Trachea midline, no thyromegaly or masses palpated, and no cervical lymphadenopathy. Supple, full range of motion without nuchal rigidity, or vertebral point tenderness. No Meningismus. Chest/axilla: Normal chest wall appearance and motion. Nontender with no deformity. No lesions are appreciated. Cardiovascular: Regular rate and rhythm with a normal S1 and S2. No gallops, murmurs, or rubs. Normal PMI, no JVD. No pulse deficits. Respiratory: Lungs have equal breath sounds bilaterally, clear to auscultation and percussion. No rales, rhonchi or wheezes noted. No increased work of breathing, no retractions or nasal flaring. Back: No spinal tenderness. No costovertebral tenderness. Full range of motion. Skin: Warm, dry with normal turgor. Normal color with no rashes, no lesions, and no evidence of cellulitis. MS/ Extremity: Pulses equal, no cyanosis. Neurovascular intact. Full, normal range of motion. Neuro: Awake and alert, GCS 15, oriented to person, place, time, and situation. Cranial nerves II-XII grossly intact. Motor strength 5/5 in all extremities. Sensory grossly intact. Cerebellar exam normal. Normal gait. Psych: Awake, alert, with orientation to person, place and time. Behavior, mood, and affect are within normal limits. 09:18 Abdomen/GI: Inspection: obese Bowel sounds: active, all quadrants, Palpation: soft, mild abdominal tenderness, in the suprapubic area, right upper quadrant and right lower quadrant, rebound tenderness, is not appreciated, voluntary guarding, is not appreciated, involuntary guarding, is not appreciated. 18:33 : CVA tenderness, is absent, Pelvic Exam: External exam: is normal, Speculum exam: kdr normal findings, no bleeding is noted, bimanual exam reveals normal findings, discharge, is not appreciated, the nurse was present for the exam. Vital Signs: 09:03 BP 192 / 102; Pulse 70; Resp 16; Temp 97.7; Pulse Ox 99% ; Weight 86.18 kg; Height 5 jl7 ft. 5 in. (165.10 cm); Pain 8/10; 11:24 BP 159 / 88; Pulse 67; Resp 16; Temp 97.8(O); Pulse Ox 99% on R/A; mh5 12:34 BP 144 / 85; Pulse 59; Resp 16; Temp 98.0(O); Pulse Ox 96% on R/A; mh5 13:35 BP 148 / 84; Pulse 59; Resp 17; Temp 98.4(TE); Pulse Ox 100% on R/A; mh5 14:30 BP 170 / 90; Pulse 63; Resp 17; Pulse Ox 100% on R/A; mh5 15:47 BP 149 / 81; Pulse 63; Resp 16; Temp 97.4(TE); Pulse Ox 99% on R/A; mh5 17:18 BP 149 / 85; Pulse 61; Resp 16; Pulse Ox 99% on R/A; mh5 17:30 BP 145 / 84; Pulse 63; Resp 16 S; Pulse Ox 100% on R/A; jl7 09:03 Body Mass Index 31.62 (86.18 kg, 165.10 cm) 7 MDM: 09:18 Data reviewed: vital signs, nurses notes, lab test result(s), radiologic studies. kdr Counseling: I had a detailed discussion with the patient and/or guardian regarding: the historical points, exam findings, and any diagnostic results supporting the discharge/admit diagnosis, lab results, radiology results. 18:29 Patient medically screened. kdr 18:33 ED course: Bladder now decompressed and the patient is feeling better. I reviewed all kdr results with her and she is happy with the care provided and the plan for discharge and follow-up. 08/25 09:17 Order name: Basic Metabolic Panel; Complete Time: 10:59 kdr 08/25 09:17 Order name: CBC with Diff; Complete Time: 10:59 kdr 08/25 09:17 Order name: Creatinine for Radiology; Complete Time: 10:59 kdr 08/25 09:17 Order name: Hepatic Function; Complete Time: 10:59 kdr 08/25 09:18 Order name: Urine Culture kdr 08/25 10:16 Order name: Urine Dipstick--Ancillary (enter results); Complete Time: 11:14 em1 08/25 09:17 Order name: CT Abd/Pelvis - IV Contrast Only; Complete Time: 12:20 kdr 08/25 16:48 Order name: Glucose, Ancillary Testing; Complete Time: 17:20 EDMS 08/25 17:30 Order name: Urinary Bladder; Complete Time: 18:28 EDMS 08/25 09:17 Order name: IV Saline Lock; Complete Time: 10:22 kdr 08/25 09:17 Order name: Labs collected and sent; Complete Time: 10: kdr 08/25 09:18 Order name: Urine Dipstick-Ancillary (obtain specimen); Complete Time: 10:16 kdr Administered Medications: 11:23 Drug: morphine 4 mg Route: IVP; Site: right upper arm; jl7 11:45 Follow up: Response: No adverse reaction; Pain is decreased jl7 11:26 Drug: Zofran (Ondansetron) 4 mg Route: IVP; Site: right upper arm; jl7 11:45 Follow up: Response: No adverse reaction jl7 13:45 Drug: LevaQUIN 750 mg Route: PO; rv 17:36 Follow up: Response: No adverse reaction jl7 15:22 Drug: Zofran (Ondansetron) 4 mg Route: IVP; Site: right upper arm; jl7 15:45 Follow up: Response: No adverse reaction; Nausea is decreased jl7 15:24 Drug: morphine 4 mg Route: IVP; Site: right upper arm; jl7 15:45 Follow up: Response: No adverse reaction; Pain is decreased jl7 16:58 Drug: D50W 25 ml Route: IVP; Site: right upper arm; jl7 18:49 Follow up: Response: No adverse reaction jl7 18:48 Drug: Bactrim (160 mg-800 mg (DS) 1 tablet Route: PO; jl7 18:49 Follow up: Response: Medication administered at discharge. jl7 18:48 Drug: Pyridium 200 mg Route: PO; jl7 18:50 Follow up: Response: Medication administered at discharge. 7 Disposition: 08/26/19 18:29 Discharged to Home. Impression: Urinary tract infection, site not specified, Retention of urine. - Condition is Stable. - Discharge Instructions: Urinary Tract Infection, Adult, [id number]. - Prescriptions for Pyridium 200 mg Oral Tablet - take 1 tablet by ORAL route every 8 hours for 3 days; 9 tablet. Bactrim DS 800- 160 mg Oral Tablet - take 1 tablet by ORAL route every 12 hours for 10 days; 20 tablet. - Medication Reconciliation Form, Thank You Letter, Antibiotic Education form. - Follow up: Tonio Miller, DO; When: 2 - 3 days; Reason: If symptoms return, Further diagnostic work-up, Recheck today's complaints, Continuance of care, Re-evaluation by your physician. - Problem is new. - Symptoms have improved. Signatures: Dispatcher [employer] EDMS Guru Kaiser MD MD kdr Twyla Mackenzie RN RN jl7 Christian Monreal, RN RN rv Corrections: (The following items were deleted from the chart) 17:30 17:16 Abdomen Limited+[id number] ordered. EDGA EDGA 18:51 18:29 08/26/2019 18:29 Discharged to Home. Impression: Urinary tract infection, site jl7 not specified; Retention of urine. Condition is Stable. Forms are Medication Reconciliation Form, Thank You Letter, Antibiotic Education, Prescription Opioid Use. Follow up: Tonio Miller; When: 2 - 3 days; Reason: If symptoms return, Further diagnostic work-up, Recheck today's complaints, Continuance of care, Re-evaluation by your physician. Problem is new. Symptoms have improved. kdr
[2019-08-26] MEDS ORDERED: SMZ./TMP. 800/160 MG TABLET ONE (18:42)
[2019-08-26] MEDS ORDERED: PHENAZOPYRIDINE 100MG TAB PO ONE (18:42)
[2019-08-26 19:29] VITALS: TEMP 97.4
[2019-08-26 19:32] VITALS: BP 145/84; O2SAT 100
== END 2019-08-26 18:51 | disposition home or self-care (01) ==
LOC: ER 08:45
DX: N39.0 Urinary tract infection, site not specified (principal); R33.9 Retention of urine, unspecified; I10 Essential (primary) hypertension; E03.9 Hypothyroidism, unspecified; E78.5 Hyperlipidemia, unspecified; Z79.01 Long term (current) use of anticoagulants; Z79.82 Long term (current) use of aspirin; Z88.0 Allergy status to penicillin; Z88.8 Allergy status to other drugs, medicaments and biological substances
CPT/HCPCS: 87088; 85025; 87086; 80048; 36415; 82947; 80076; 87077; 87186; 81003; 74177; 76857; 51702 ×2; 96375; 96374; 99284; Q9967; J2405 ×2

== ENCOUNTER 2020-05-04 22:09 | Observation (INO) | payer OTHER ==
--- OUTSIDE RECORDS SUMMARY | 2020-05-04 22:13 | XMS REPORT | Continuity of Care Document ---
:1955 Author Organization [facility] t Address [address] [place] [address] Care Team Providers Name Role Phone Christiano SALVADOR Attending Clinician Payers Payer Name Policy Type Policy Number Effective Date Expiration Date S ource Problems This patient has no known problems. Allergies, Adverse Reactions, Alerts Allergy Allergy Status Severity Reaction(s) Onset Inactive Treating Comm ents Source Name Type Date Date Clinician [place] DA Active [place] 2016-06 [facility] 07[facility]: [address] metoclop DA Active [place] 2016-06 [facility] ramide 07-01 00:00: [address] Metoclop Adverse Active anxiety [facility] PCN Adverse Active hives [facility] Reaction [facility] Medications Ordered Filled Start Stop Current Ordering Indication Dosage Frequency Signature Comments Components Source Medication Medication Date Date Medication? Clinician (SIG) Name Name Scopolamine Scopolamine 2019- 2020- Yes Tonio [address] [facility] 02[facility]18 Miller skin [facility] behind the [facility] 00 :00 ear as l needed [facility] Tamsulosin Tamsulosin 2020- Yes Tonio [address] [facility] HCl HCl 02-17 Miller [facility]00 [facility] 00 :00 l [facility] Nystatin Nystatin Yes Tonio 4 - [address] [facility] 5[facility]11 Miller swish, [facility] then Clinics swallow Trelegy Trelegy Yes [facility] 1 puff [facility] Ellipta Ellipta Miller [facility] l [facility] Loratadine Loratadine Yes Tonio [address] [facility] Miller [facility] l [facility] Vitamin B12 Vitamin B12 Yes Tonio [address] [facility] Miller [facility] Synthroid Synthroid Yes Tonio [address] [facility] Miller on an [facility] - empty [facility] stomach in l the [facility] Clinics Aspirin Aspirin Yes [facility]io TAKE [facility] TABLET [facility] Aspirin Low Aspirin Low Yes Tonio TAKE [address] [facility] Dose Dose Miller TABLET BY [facility] - M[facility]TH [facility] EVERY DAY l [facility] Atenolol Atenolol Yes Tonio TAKE [address] [facility] Miller TABLET BY [facility] EVERY DAY l [facility] Nexium Nexium Yes Tonio TAKE ONE [facility] Miller CAPSULE BY [facility] - M[facility]TH [facility] EVERY DAY l [facility] ProAir HFA ProAir HFA Yes Tonio [address] [facility] Miller needed [facility] l [facility] Furosemide Furosemide Yes Tonio [address] [facility] Miller [facility] l [facility] Venlafaxine Venlafaxine Yes Tonio TAKE ONE [facility] HCl ER HCl ER Miller CAPSULE BY Luke [facility] - [facility] Simvastatin Simvastatin Yes Tonio [address] [facility] Miller in the [facility] - evening [facility] Simvastatin Simvastatin Yes Tonio [address] [facility] Miller in the [facility] - evening [facility] l [facility] Levothyroxi Levothyroxi Yes Tonio TAKE [address] [facility] ne Sodium ne Sodium Miller TABLET BY [facility]TH [facility]oria [facility] Aspirin Aspirin Yes Tonio TAKE [address] [facility] TABLET BY [facility] M[facility]TH Memoria EVERY DAY l [facility] ent [facility]ics Clopidogrel Clopidogrel Yes Tonio [address] [facility] Bisulfate Bisulfate Miller Luke s - Memoria l [facility]ics Promethazin Promethazin Yes Tonio [address] [facility] e HCl e HCl Miller [facility] Gabapentin Gabapentin Yes Tonio TAKE [address] [facility] Miller CAPSULE BY [facility] - MOUTH Memoria EVERY DAY l [facility]ics Zofran Zofran Yes Tonio [facility] [address] [facility] as needed [facility] Docusate Docusate Yes Tonio TAKE [address] [facility] Sodium Sodium Miller CAPSULE BY Luke s - MOUTH Memoria TWICE A l DAY [facility] ent Clinics Spironolact Spironolact Yes Tonio TAKE [address] [facility] one one Miller TABLET BY [facility] - MOUTH Memoria EVERY DAY l [facility]ics Venlafaxine Venlafaxine Yes Tonio [address] [facility] [address] HCl ER HCl ER Miller with food [facility] l [facility]ics Nasonex Nasonex Yes Tonio [address] [facility] Miller in each [facility] - nostril [facility] l [facility] Hydrocodone Hydrocodone Yes Tonio [address] [facility] -Acetaminop -Acetaminop Miller as needed [facility] Clotrimazol Clotrimazol Yes Tonio [address] [facility] [facility] e e Miller applicatio [facility] n [facility] Procedures This patient has no known procedures. Encounters Start End Encounter Admission Attending Care Care Encounter Source Date/Time Date/Time Type Type Clinicians Facility Department ID 2020-04-27 2020-04-27 Outpatient [facility] [id number] [facility] 2020-04-26 2020-04-26 Outpatient [facility] [id number] [facility] 2020-04-13 2020-04-13 Outpatient [facility] [id number] [facility] 2020-04-07 2020-04-07 Office KELLIE Alvarado [id number] 10:16:43 10:31:43 Visit Tnag VALLEJO [id number] [place] CAROLINE [id number] 2020-04-06 2020-04-06 Outpatient [facility] [id number] [facility] 2020-03-30 2020-03-30 Outpatient [facility] [id number] [facility] 2020-03-28 2020-03-28 Outpatient [facility] [id number] [facility] 2020-03-23 2020-03-23 Outpatient [facility] [id number] [facility] 2020-03-16 2020-03-16 Outpatient [facility] [id number] [facility] 2020-03-02 2020-03-02 [facility] [id number] [facility] 16:00:00 16:00:[address] Luke s - Drive [facility] Medicine l Medicine Outpati ent Clinics 2020-03-01 2020-03-01 [facility] [id number] [facility] 16:58:00 16:58:[address] Luke s - Drive [facility] Medicine l Medicine Outpati ent Clinics 2020-02-29 2020-02-29 [facility] [id number] [address] 09:32:00 09:32:[address] Luke s - Drive [facility] Medicine l Medicine Outpati ent Clinics 2020-02-19 2020-02-19 [facility] [id number] [facility] 11:43:00 11:43:00 t Almeida [facility] Medicine l Medicine Outpati ent Clinics 2020-02-18 2020-02-18 [facility] [id number] [address] 14:30:00 14:30:00 t Specialty/U Elvira kes - Specialty rology Memori a /Urology Clinic l Clinic Outpati ent Clinics 2020-02-17 2020-02-17 [facility] [id number] [facility] [address] 11:30:00 11:30:00 t Specialty/U Elvira k[facility] - [facility] Outpati ent Clinics 2019-12-24 2019-12-24 [facility] [id number] [address] 09:32:00 09:32:00 t [employer] [facility] Medicine l Medicine Outpati ent Clinics 2019-12-13 2019-12-13 [facility] [id number] 11:45:00 11:45:00 t [facility] Medicine Outpati ent Clinics 2019-12-01 2019-12-01 [facility] [id number] 16:54:00 16:54:00 t Podaddies s - [employer] [facility] Medicine l Medicine Outpati ent Clinics 2019-11-25 2019-11-25 [facility] [id number] [address] 16:55:00 16:55:00 t Podaddies s [employer] [facility] Medicine l Medicine Outpati ent Clinics 2019-11-22 2019-11-22 [facility] [id number] [address] 11:38:00 11:38:00 t Podaddies s [employer] [facility] Medicine l Medicine Outpati ent Clinics 2019-11-19 2019-11-19 [facility] [id number] 16:25:00 16:25:00 t [facility] [employer] [facility] l Medicine Outpati ent Clinics 2019-11-18 2019-11-18 [facility] [id number] 16:23:00 16:23:00 t Podaddies s [employer] [facility] Medicine l Medicine Outpati ent Clinics 2019-11-18 2019-11-18 [facility] [id number] 10:45:00 10:45:00 t Elmer Archy s - [employer] [facility] Medicine l Medicine Outpati ent Clinics 2019-11-08 2019-11-08 [facility] [id number] 14:04:00 14:04:00 [facility] l Medicine Outpati ent Clinics 2019-11-05 2019-11-05 [facility] [id number] 14:36:00 14:36:00 t [facility] Medicine l Medicine Outpati ent Clinics 2019-11-01 2019-11-01 [facility] [id number] [address] 11:35:00 11:35:00 t Podaddies s [employer] [facility] Medicine l Medicine Outpati ent Clinics 2019-10-27 2019-10-27 [facility] [id number] [address] 13:30:00 13:30:00 t Elmer Archy s [employer] [facility] Medicine l Medicine Outpati ent Clinics 2019-10-26 2019-10-26 [facility] [id number] 08:59:00 08:59:00 t Podaddies s - [employer] [facility] Medicine l Medicine Outpati ent Clinics 2019-10-25 2019-10-25 [facility] [id number] 08:37:00 08:37:00 t Podaddies s [employer] [facility] Medicine l Medicine Outpati ent Clinics 2019-10-14 2019-10-14 [facility] [id number] 15:00:00 15:00:00 t Elmer Archy s [employer] [facility] Medicine l Medicine Outpati ent Clinics 2019-10-12 2019-10-12 [facility] [id number] 09:50:00 09:50:00 t Podaddies s [employer] [facility] Medicine l Medicine Outpati ent Clinics 2019-09-17 2019-09-17 [facility] [id number] 08:05:00 08:05:00 t Elmer Archy s - [employer] [facility] Medicine l Medicine Outpati ent Clinics 2019-08-27 2019-08-27 [facility] [id number] 14:30:00 14:30:00 t Specialty/U Elvira kes - Specialty rology [facility] a /Urology Clinic l Clinic Outpati ent Clinics 2019-08-19 2019-08-19 [facility] [id number] 11:00:00 11:00:00 t Elmer [employer] Luke s - Drive [facility] Medicine l Medicine Outpati ent Clinics 2019-08-05 2019-08-05 [facility] [id number] 09:15:00 09:15:00 t Elmer Archy s - Drive [facility] Medicine l Medicine Outpati ent Clinics 2019-08-03 2019-08-03 [facility] [id number] [address] 14:40:00 14:40:00 t [facility] Medicine l Medicine Outpati ent Clinics 2019-07-29 2019-07-29 [facility] [id number] 13:23:00 13:23:00 t Elmer [employer] s - Drive [facility] Medicine l Medicine Outpati ent Clinics 2019-07-19 2019-07-19 [facility] [id number] 13:59:00 13:59:00 t Elmer [employer] Luke s - Drive [facility] Medicine l Medicine Outpati ent Clinics 2019-07-14 2019-07-14 [facility] [id number] [address] 13:18:00 13:18:00 t Elmer [employer] s - Drive [facility] Medicine l Medicine Outpati ent Clinics 2019-07-06 2019-07-06 [facility] [id number] [facility] 10:00:00 10:00:00 t Elmer [employer] Luke s - Drive [facility] Medicine l Medicine Outpati ent Clinics 2019-05-17 2019-05-17 [facility] [id number] 13:30:00 13:30:00 t Elmer Archy s - Drive [facility] Medicine l Medicine Outpati ent Clinics 2019-03-30 2019-03-30 [facility] [id number] 15:00:00 15:00:00 t Specialty/U Elvira kes - Specialty rology Memori a /Urology Clinic l Clinic Outpati ent Clinics 2019-03-23 2019-03-23 [facility] [id number] [address] 08:47:00 08:47:00 t Specialty/U Elvira kes - Specialty rology Memori a /Urology Clinic l Clinic Outpati ent Clinics 2019-03-22 2019-03-22 [facility] [id number] 16:57:00 16:57:00 t Podaddies s - [employer] [facility] Medicine Outpati ent Clinics 2019-03-17 2019-03-17 [facility] [id number] 09:45:00 09:45:00 t [facility] Outpati ent Clinics 2019-03-04 2019-03-04 [facility] [id number] 11:00:00 11:00:00 t Specialty/U Elvira kes - Specialty rology Memori a /Urology Clinic l Clinic Outpati ent Clinics 2019-03-01 2019-03-01 [facility] [id number] 11:00:00 11:00:00 t [employer] [facility] Outpati ent Clinics 2019-02-23 2019-02-23 [facility] [id number] [facility] 13:15:00 13:15:00 t [employer] [facility] Outpati ent Clinics 2019-02-15 2019-02-15 [facility] [id number] 09:54:00 09:54:00 t Specialty/U Elvira kes - Specialty rology Memori a /Urology Clinic l Clinic Outpati ent Clinics 2019-02-08 2019-02-08 [facility] [id number] 13:00:00 13:00:00 t Specialty/U Elvira kes - Specialty rology Memori a /Urology Clinic l Clinic Outpati ent Clinics 2019-02-01 2019-02-01 [facility] [id number] [address] 14:15:00 14:15:00 t Specialty/U Elvira kes - Specialty rology Memori a /Urology Clinic l Clinic Outpati ent Clinics 2019-01-27 2019-01-27 [facility] [id number] [address] 10:00:00 10:00:00 t Elmer Elmer [employer] Luke s - Drive [facility] Medicine Outpati ent Clinics 2018-12-08 2018-12-08 [facility] [id number] 13:00:00 13:00:00 t Elmer Elmer [employer] Luke s - Drive [facility] Medicine Outpati ent Clinics 2018-12-07 2018-12-07 [facility] [id number] [facility] 16:17:00 16:17:00 t Elmer Elmer [employer] Luke s - Drive [facility] Medicine Outpati ent Clinics 2018-12-03 2018-12-03 [facility] [id number] [facility] 09:15:00 09:15:00 t Elmer Elmer [employer] s - Drive [facility] Medicine Outpati ent Clinics 2018-10-19 2018-10-19 [facility] [id number] 16:30:00 16:30:00 t Elmer Elmer [employer] s - Drive [facility] Medicine Outpati ent Clinics 2018-10-01 2018-10-01 [facility] [id number] 13:52:00 13:52:00 t Elmer Elmer [employer] s - Drive [facility] Medicine Outpati ent Clinics 2018-09-14 2018-09-14 [facility] [id number] [facility] 08:34:00 08:34:00 t Elmer Elmer [employer] Luke s - Drive [facility] Medicine Outpati ent Clinics 2018-09-10 2018-09-10 [facility] [id number] [facility] 14:45:00 14:45:00 t Elmer Elmer [employer] s - Drive [facility] Medicine Outpati ent Clinics 2018-08-26 2018-08-26 [facility] [id number] 16:26:00 16:26:00 t Elmer Elmer [employer] s - Drive [facility] Medicine Outpati ent Clinics 2018-08-25 2018-08-25 [facility] [id number] 10:00:00 10:00:00 t Elmer Archy s - [employer] [facility] Medicine Medicine Outpati ent Clinics 2018-08-19 2018-08-19 [facility] [id number] 08:22:00 08:22:00 t Elmer Archy s - [employer] [facility] Medicine Outpati ent Clinics 2018-07-16 2018-07-16 [facility] [id number] 13:00:00 13:00:00 t Elmer Archy s - [employer] [facility] Medicine Medicine Outpati ent Clinics 2018-03-25 2018-03-25 [facility] [id number] [facility] 10:15:00 10:15:00 t Elmer Archy s - [employer] [facility] Medicine Outpati ent Clinics 2018-02-03 2018-02-03 [facility] [id number] [facility] 09:02:00 09:02:00 t Podaddies s - [employer] [facility] Medicine Medicine Outpati ent Clinics 2018-01-23 2018-01-23 [facility] [id number] [facility] 10:00:00 10:00:00 t Elmer Archy s - [employer] [facility] Medicine Outpati ent Clinics 2017-12-23 2017-12-23 [facility] [id number] 10:30:00 10:30:00 t Podaddies s [employer] [facility] Medicine Outpati ent Clinics 2017-12-16 2017-12-16 [facility] [id number] [facility] 15:15:00 15:15:00 t Elmer Archy s [employer] [facility] Medicine Medicine Outpati ent Clinics 2017-11-04 2017-11-04 [facility] [id number] 10:00:00 10:00:00 t [employer] [facility] Medicine Outpati ent Clinics Results Test Description Test Time Test Comments Results Result Comments Source LIPID PROFILE (CORONARY RISK) 2018-08-01 08:02:00 Test Item Value Reference Range Interpretation Comme nts TRIGLYCERIDES (test code = TRIG) 194 MG/DL TRIGLYCERIDES REFERENCE RANGE:Normal: < 150 mg/dLBorderline High: 150-199 m g/dLHigh: 200-499 mg/dLVery High: >=500 mg/dL CHOLESTEROL (test code = CHOL) 206 MG/DL <200 HDL CHOLESTEROL (test code = HDL) 59 MG/DL 40-59 N LIPOPROTEIN LDL (test code = LDL) 116 MG/DL 0-99 H OPTIMAL........ .<100 mg/dLNEAR OPTIMAL/ABOVE OPTIMAL........ .100-129 mg/dL BORDERLINE HIGH.........13 0-159 mg/dL HI GH.........160-189 mg/dL VERY HIGH.........>/ = 190 mg/dL [id number] 08:02:00 Test Item Value Reference Range Interpretation Comments MAGNESIUM (test code = MAG) 2.0 MG/DL 1.6-2.3 N LIPID PROFILE (CORONARY RISK)2018-08-01 07:51:00 Test Item Value Reference Range Interpretation Comments TRIGLYCERIDES (test 194 MG/DL TRIGLYCE RIDES code = TRIG) REFERENCE RANGE:Normal: < 150 mg/dLBorderline High: 150-199 mg/dLHi gh: 200-499 mg/dLVe ry High: >=500 mg/ dL CHOLESTEROL (test code 206 MG/DL <200 = CHOL) HDL CHOLESTEROL (test 59 MG/DL 40-59 N code = HDL) LIPOPROTEIN LDL (test MG/DL 0-99 code = LDL) [id number] 07:51:00 Test Item Value Reference Range Interpretation Comments MAGNESIUM (test code = MAG) 2.0 MG/DL 1.6-2.3 N PROTHROMBIN [id number] 07:37:00 Test Item Value Reference Range Interpretation Comments PROTHROMBIN TIME 10.2 SECONDS 9.6-11.6 N PATIENT (test code = PTP) INTERNATIONAL NORMAL 1.0 0.8-1.1 N The INR is to be RATIO (test code = used only for INR) monitoring oral anticoagulantth erap y. INDICATION I NR VALUE ---- ---- ---- -------1. Prophylaxis, de ep venous thrombos is, including hig h risk surgery. 2.0 - 3.0 2. Prophylaxis, de ep venous thrombos is, hip surgery, treatment for d eep venous thrombosis or pulmonary prevention of systemic emboli sm in patients wit h valvular heart disease, atrial fibrillation, tissue heart va lve, or acute myocar dial infarction. 2.0 - 3 .0 3. Mechanical prosthesis hear t valves, recurrent syste oscar embolism. 3.0 - 4.5 PTT [id number] 07:37:00 Test Item Value Reference Range Interpretation Comments PTT ACTIVATED (test code = APTT) 26.7 SECONDS 22.0-33.0 N [id number] 01:26:00 Test Item Value Reference Range Interpretation Comments TROPONIN-I (test code = TROPI) < 0.012 NG/ML 0.012-0.033 L HEPATIC FUNCTION [id number] 18:44:00 Test Item Value Reference Range Interpretation Comments TOTAL PROTEIN (test code = PROT) 7.2 G/DL 6.3-8.2 N ALBUMIN (test code = ALB) 3.6 G/DL 3.5-5.0 N BILIRUBIN TOTAL (test code = BILT) 0.9 MG/DL 0.2-1.3 N BILIRUBIN DIRECT (test code = 0.0 MG/DL 0.0-0.3 N BILD) SGOT/AST (test code = AST) 27 UNITS/L 14-36 N SGPT/ALT (test code = ALT) 19 UNITS/L 9-52 N ALKALINE PHOSPHATASE (test code = 77 UNITS/L 38-126 N ALKP) BASIC METABOLIC [id number] 18:15:00 Test Item Value Reference Range Interpretation Comments SODIUM (test code = 140 MMOL/L 137-145 N NA) POTASSIUM (test code = 4.0 MMOL/L 3.5-5.1 N K) CHLORIDE (test code = 110 MMOL/L 98-107 H CL) CARBON DIOXIDE (test 23 MMOL/L 22-30 N code = CO2) GLUCOSE (test code = 105 MG/DL 74-106 N GLU) BLOOD UREA NITROGEN 20 MG/DL 7-17 H (test code = BUN) GLOMERULAR FILTRATION > 60 Report ing units: RATE (test code = GFR) ml/mi n/1.73 m2 (Modified MDRD Formula)Referen ce Range: > or = 6 0 ml/min/1.73 m2 CREATININE (test code 0.60 MG/DL 0.52-1.04 N = CREAT) CALCIUM (test code = 8.9 MG/DL 8.4-10.2 N CA) [id number] 18:15:00 Test Item Value Reference Range Interpretation Comments TROPONIN-I (test code = TROPI) < 0.012 NG/ML 0.012-0.033 L BASIC METABOLIC [id number] 18:03:00 Test Item Value Reference Range Interpretation Comments SODIUM (test code = 140 MMOL/L 137-145 N NA) POTASSIUM (test code = 4.0 MMOL/L 3.5-5.1 N K) CHLORIDE (test code = 110 MMOL/L 98-107 H CL) CARBON DIOXIDE (test 23 MMOL/L 22-30 N code = CO2) GLUCOSE (test code = 105 MG/DL 74-106 N GLU) BLOOD UREA NITROGEN 20 MG/DL 7-17 H (test code = BUN) GLOMERULAR FILTRATION > 60 Report ing units: RATE (test code = GFR) ml/mi n/1.73 m2 (Modified MDRD Formula)Referen ce Range: > or = 6 0 ml/min/1.73 m2 CREATININE (test code 0.60 MG/DL 0.52-1.04 N = CREAT) CALCIUM (test code = 8.9 MG/DL 8.4-10.2 N CA) [id number] 18:03:00 Test Item Value Reference Range Interpretation Comments TROPONIN-I (test code = TROPI) NG/ML 0.0-0.045 CBC W/O [id number] 17:39:00 Test Item Value Reference Range Interpretation Comments WHITE BLOOD CELL (test code = 8.3 K/MM3 3.8-9.8 N WBC) RED BLOOD CELL (test code = 3.85 M/MM3 3.58-4.97 N RBC) HEMOGLOBIN (test code = HGB) 12.2 G/DL 11.2-14.9 N HEMATOCRIT (test code = HCT) 37.5 % 33.2-43.5 N MEAN CELL VOLUME (test code = 97 fL 80.7-99.1 N MCV) MEAN CELL HGB (test code = MCH) 31.7 pg 27.0-34.1 N MEAN CELL HGB CONCETRATION 32.5 % 32.2-35.7 N (test code = MCHC) RED CELL DISTRIBUTION WIDTH 13.8 % 12.1-15.2 N (test code = RDW) PLATELET COUNT (test code = 155 K/MM3 129-368 N PLT) IMMATURE GRANULOCYTE % (test 0.1 % 0.0-2.0 N code = IG%) NEUTROPHIL # (test code = NT#) 5.0 K/mm3 2.0-7.6 N IMMATURE GRANULOCYTE # (test 0.01 x10 3/uL 0-0.03 N code = IG#) LYMPHOCYTE # (test code = LY#) 2.9 K/mm3 1.0-3.8 N MONOCYTE # (test code = MO#) 0.37 K/mm3 0.1-0.8 N EOSINOPHIL # (test code = EO#) 0.1 K/mm3 0.0-0.2 N BASOPHIL # (test code = BA#) 0.02 K/mm3 0.0-0.2 N NUCLEATED RBC # (test code = 0.0 K/mm3 0.0-0.1 N NRBC#)
--- OUTSIDE RECORDS SUMMARY | 2020-05-04 22:13 | XMS REPORT ---
:1955 Author Organization eClinicalWorks Care Team Providers Name Role Phone Antonietta Esparza Provider Role Unavailable Allergies No Known Allergies Problems Problem Type Condition Code Onset Dates Condition Statu s Assessment Incomplete bladder emptying R33.9 Active Assessment Hematuria, unspecified R31.9 Activ e Assessment Hematuria R31.9 Active Assessment Hematuria, unspecified type R31.9 Active Assessment Kidney stones N20.0 Active Assessment Urinary tract infection, site not N39.0 Active specified Problem Chronic pancreatitis K86.1 Active Problem Peripheral neuropathy G62.9 Active Problem Insomnia G47.00 Active Problem Adrenal hypofunction E27.49 Active Problem History of cerebrovascular accident Z86.73 Active Problem Fatty liver K76.0 Active Problem Atherosclerosis of coronary artery I25.10 Active of [place] [facility] Problem Vitamin B12 deficiency anemia D51.9 Active Problem Degeneration, intervertebral disc, 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 Problem Kidney stones N20.0 Active Problem Other chronic pain G89.29 Active Problem Hypertension I10 Active Problem Dizziness R42 Active Problem Lung nodule R91.1 Active Problem GERD (gastroesophageal reflux K21.9 Active disease) Problem Stress disorder, acute F43.0 Activ e Problem Simple renal cyst N28.1 Active Problem Chronic obstructive pulmonary J44.9 Active disease, unspecified COPD type Problem Hypothyroidism, unspecified type E03.9 Active Problem Depression with anxiety F41.8 Acti ve Problem Hyperlipidemia, mixed E78.2 Active Problem Stented coronary artery Z95.5 Acti ve Problem Obstructive sleep apnea G47.33 Acti ve Problem History of transient ischemic attack Z86.73 Active Problem Postsurgical menopause N95.8 Activ e Problem Varicose veins I86.8 Active Problem Degenerative joint disease M19.90 A ctive Medications Medication Code Code Instructions Start End Status Dosage System Date Date Simvastatin [facility] 71426368383 40 MG Orally Active 1 t ablet in Once a day the evening Nystatin [facility] [id number] UNIT/ML October 31, Active 4 - 6 ml Mouth/Throat 2020 swish, hermilo in Four times a in mouth as day long as possible then swallow Aspirin [facility] 34443675418 81 MG Active TAKE 1 TABLE T BY MOUTH EVERY DAY Loratadine [facility] 95624676785 10 MG Orally Active 1 ta blet Once a day Clopidogrel ND 23795311172 75 MG Orally Active 1 t ablet Bisulfate Once a day Furosemide ND 10461030625 20 MG Orally Active 1 ta blet Once a day Aspirin ND 23575062924 81 MG Active TAKE 1 TABLE T BY MOUTH EVERY DAY Levothyroxine ND 59694863288 50 MCG Active TAKE 1 TABLET Sodium BY MOUTH EVERY DAY IN THE MORNING Hydrocodone-Acet ND 20947375954 5-325 MG Orally Act yovany 1 tablet as aminophen every 6 hrs needed Zofran ND 91520083973 8 MG Orally Active 1 tablet as Once a day needed Nexium ND 36413168312 40 MG Active TAKE ONE CAPSULE BY MOUTH EVERY DAY Trelegy Ellipta [facility] 28209331125 100-62.5-25 Active 1 puff MCG/INH Inhalation Once a day Venlafaxine HCl [facility] 66732688545 75 MG Orally Active TAKE ONE ER Once a day CAPSULE BY MOUTH EVERY DAY Atenolol [facility] 87278468436 100 MG PO Once Active TAKE 1 TABLET daily BY MOUTH EVERY DAY Clotrimazole [facility] 06147827100 1 % Externally Active 1 application Twice a day Venlafaxine HCl [facility] 21453858832 75 MG Orally Active 1 capsule ER Once a day with food Simvastatin ND 97995922074 40 MG Orally Active 1 t ablet in Once a day the evening Docusate Sodium [facility] 47408687213 100 MG Active TAKE 1 CAPSULE BY MOUTH TWICE A DAY Nasonex [facility] 74036457363 50 MCG/ACT Active 2 sprays in Nasally Once a each nost ril day Atenolol ND 46857085239 100 MG Active TAKE 1 TABL ET BY MOUTH EVERY DAY Aspirin Low Dose [facility] 38236365110 81 MG Active ARSLAN E 1 TABLET BY MOUTH EVERY DAY ProAir HFA [facility] 99871881602 108 (90 Base) Active 2 p uffs as MCG/ACT needed Inhalation every 6 hrs Vitamin B12 [facility] 47583674107 1000 MCG Orally Active 1 tablet Once a day Promethazine HCl [facility] 44945471650 25 MG/ML Active 1 ml as Injection every needed 6 hrs Synthroid [facility] 11104166694 25 MCG Orally Active 1 ta blet on Once a day an empty stomach in the morning Results No Known Results Summary Purpose eClinicalWorks Submission
--- OUTSIDE RECORDS SUMMARY | 2020-05-04 22:13 | XMS REPORT ---
:1955 Author Organization eClinicalWorks Care Team Providers Name Role Phone Tonio Miller Provider Role Unavailable Allergies No Known Allergies Problems Problem Type Condition Code Onset Dates Condition Statu s Assessment Dizziness R42 Active Problem Chronic pancreatitis K86.1 Active Problem Peripheral neuropathy G62.9 Active Problem Insomnia G47.00 Active Problem Adrenal hypofunction E27.49 Active Problem History of cerebrovascular accident Z86.73 Active Problem Fatty liver K76.0 Active Problem Atherosclerosis of coronary artery I25.10 Active of [place] [facility] Problem Vitamin B12 deficiency anemia D51.9 [...] disease M19.90 A ctive Medications Medication Code System Code Instructions Start End Date Status Dos age Date Scopolamine [facility] 08789040787 1 MG/3DAYS Feb 18, Mar 20, Active 1 pa tch to Transdermal 2019 2019 skin change every 3 behind th e days while ear as needed needed Results No Known Results Summary Purpose eClinicalWorks Submission
--- OUTSIDE RECORDS SUMMARY | 2020-05-04 22:13 | XMS REPORT ---
:1955 Author Organization eClinicalWorks Care Team Providers Name Role Phone Antonietta Esparza Provider Role Unavailable Allergies, Adverse Reactions, Alerts Substance Reaction Event Type PCN hives Drug Allergy Metoclopramide HCl anxiety Drug Allergy Problems Problem Type Condition Code Onset Dates Condition Statu s Assessment Incomplete bladder emptying R33.9 Active Assessment Kidney stones N20.0 Active Assessment Hematuria, unspecified type R31.9 Active Assessment Urinary tract infection, site not N39.0 Active specified Assessment Hematuria R31.9 Active Problem Chronic pancreatitis K86.1 Active Problem Peripheral neuropathy G62.9 Active Problem Insomnia G47.00 Active Problem Adrenal hypofunction E27.49 Active Problem History of cerebrovascular accident Z86.73 Active Problem Fatty liver K76.0 Active Problem Atherosclerosis of coronary artery I25.10 Active of [place] [facility] Problem Vitamin B12 deficiency anemia D51.9 [...] Start End Status Dosage System Date Date Nystatin [facility] [id number] UNIT/ML October 31, Active 4 - 6 ml Mouth/Throat 2019 swish, hermilo in Four times a in mouth as day long as possible then swallow Levothyroxine [facility] 88539935694 50 MCG Active TAKE 1 TABLET Sodium BY MOUTH EVERY DAY IN THE MORNING Venlafaxine HCl [facility] 74506448065 75 MG Orally Active 1 capsule ER Once a day with food Aspirin [facility] 28609864760 81 MG Active TAKE 1 TABLE T BY MOUTH EVERY DAY Atenolol [facility] 48029347750 100 MG PO Once Active TAKE 1 TABLET daily BY MOUTH EVERY DAY Zofran [facility] 68054499444 8 MG Orally Active 1 tablet as Once a day needed Venlafaxine HCl [facility] 91392628409 75 MG Orally Active TAKE ONE ER Once a day CAPSULE BY MOUTH EVERY DAY Simvastatin [facility] 05359454599 40 MG Orally Active 1 t ablet in Once a day the evening Clotrimazole [facility] 98207210597 1 % Externally Active 1 application Twice a day Synthroid [facility] 52905553829 25 MCG Orally Active 1 ta blet on Once a day an empty stomach in the morning Furosemide [facility] 08745025853 20 MG Orally Active 1 ta blet Once a day Aspirin [facility] 26601718863 81 MG Active TAKE 1 TABLE T BY MOUTH EVERY DAY Simvastatin [facility] 43147580837 40 MG Orally Active 1 t ablet in Once a day the evening Vitamin B12 [facility] 52317391539 1000 MCG Orally Active 1 tablet Once a day Atenolol [facility] 13153852328 100 MG Active TAKE 1 TABL ET BY MOUTH EVERY DAY Aspirin Low Dose [facility] 50856584011 81 MG Active ARSLAN E 1 TABLET BY MOUTH EVERY DAY Loratadine [facility] 50665207396 10 MG Orally Active 1 ta blet Once a day Promethazine HCl [facility] 77054522613 25 MG/ML Active 1 ml as Injection every needed 6 hrs Docusate Sodium [facility] 75339078906 100 MG Active TAKE 1 CAPSULE BY MOUTH TWICE A DAY Hydrocodone-Acet [facility] 89139243334 5-325 MG Orally Act yovany 1 tablet as aminophen every 6 hrs needed Trelegy Ellipta [facility] 79973329241 100-62.5-25 Active 1 puff MCG/INH Inhalation Once a day Tamsulosin HCl [facility] 72039824994 0.4 MG Orally Feb 17Feb Active 1 capsule Once a day 2019 Nasonex [facility] 49917969257 50 MCG/ACT Active 2 sprays in Nasally Once a each nost ril day Nexium [facility] 61991262858 40 MG Active TAKE ONE CAPSULE BY MOUTH EVERY DAY Clopidogrel [facility] 15555763822 75 MG Orally Active 1 t ablet Bisulfate Once a day ProAir HFA [facility] 69786783885 108 (90 Base) Active 2 p uffs as MCG/ACT needed Inhalation every 6 hrs Cefdinir [facility] 42169821495 300 MG Orally Feb 17Feb Active as di rected BID 2019 Results No Known Results Summary Purpose eClinicalWorks Submission
--- OUTSIDE RECORDS SUMMARY | 2020-05-04 22:13 | XMS REPORT ---
:1955 Author Organization eClinicalWorks Care Team Providers Name Role Phone Tonio Miller Provider Role Unavailable Allergies No Known Allergies Problems Problem Type Condition Code Onset Dates Condition Statu s Problem Chronic pancreatitis K86.1 Active Problem Peripheral neuropathy G62.9 Active Problem Insomnia G47.00 Active Problem Adrenal hypofunction E27.49 Active Problem History of cerebrovascular accident Z86.73 Active Problem Fatty liver K76.0 Active Problem Atherosclerosis of coronary artery I25.10 Active of [place] [facility] Problem Vitamin B12 deficiency anemia D51.9 [...] End Date Status Dos age Date Scopolamine [facility] 86474389376 1 MG/3DAYS Feb 18, Mar 20, Active 1 pa tch to Transdermal 2019 2019 skin change every 3 behind th e days while ear as needed needed Results No Known Results Summary Purpose eClinicalWorks Submission
--- OUTSIDE RECORDS SUMMARY | 2020-05-04 22:13 | XMS REPORT ---
[...] I25.10 Active of [place] [facility] Problem Vitamin B12 deficiency anemia D51.9 [...] End Date Status Dos age Date Scopolamine [facility] 52216016061 1 MG/3DAYS Feb 18, Mar 20, Active 1 pa tch to Transdermal 2019 2019 skin change every 3 behind th e days while ear as needed needed Results No Known Results Summary Purpose eClinicalWorks Submission
--- OUTSIDE RECORDS SUMMARY | 2020-05-04 22:13 | XMS REPORT ---
:1955 Author Organization eClinicalWorks Care Team Providers Name Role Phone Paul Tonio Provider Role Unavailable Allergies, Adverse Reactions, Alerts Substance Reaction Event Type PCN hives Drug Allergy Metoclopramide HCl anxiety Drug Allergy Problems Problem Type Condition Code Onset Dates Condition Statu s Assessment Hypertension I10 Active Assessment Atherosclerosis of coronary artery I25.10 Active of [place] [facility] Assessment Hyperlipidemia, mixed E78.2 Active Assessment Chronic obstructive pulmonary J44.9 Active disease, unspecified COPD type Assessment Depression with anxiety F41.8 Acti ve Assessment Hypothyroidism, unspecified type E03.9 Active Problem Chronic pancreatitis K86.1 Active Problem Peripheral neuropathy G62.9 Active Problem Insomnia G47.00 Active Problem Adrenal hypofunction E27.49 Active Problem History of cerebrovascular accident Z86.73 Active Problem Fatty liver K76.0 Active Problem Atherosclerosis of coronary artery I25.10 Active of [place] [facility] Problem Vitamin B12 deficiency anemia D51.9 Active Problem Degeneration, intervertebral disc, 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 Problem Kidney stones N20.0 Active Problem Other chronic pain G89.29 Active Problem Hypertension I10 Active Problem Dizziness R42 Active Assessment Multiple joint pain M25.50 Active Problem Lung nodule R91.1 Active Problem GERD (gastroesophageal reflux K21.9 Active disease) Assessment Elevated erythrocyte sedimentation R70.0 Active rate Problem Stress disorder, acute F43.0 Activ e Problem Simple renal cyst N28.1 Active Problem Chronic obstructive pulmonary J44.9 Active disease, unspecified COPD type Problem Hypothyroidism, unspecified type E03.9 Active Assessment GERD (gastroesophageal reflux K21.9 Active disease) Problem Depression with anxiety F41.8 Acti ve Assessment Stented coronary artery Z95.5 Acti ve Problem Hyperlipidemia, mixed E78.2 Active Assessment Other chronic pain G89.29 Active Problem Stented coronary artery Z95.5 Acti ve Assessment Low back pain M54.5 Active Problem Obstructive sleep apnea G47.33 Acti ve Assessment Fatigue, unspecified type R53.83 Ac tive Problem History of transient ischemic attack Z86.73 Active Assessment Cervicalgia M54.2 Active Problem Postsurgical menopause N95.8 Activ e Problem Varicose veins I86.8 Active Problem Degenerative joint disease M19.90 A ctive Medications Medication Code Code Instructions Start End Status Dosage System Date Date Chetan Duran [facility] 33322463909 100-62.5-25 Active 1 puff MCG/INH Inhalation Once a day Loratadine [facility] 96528525471 10 MG Orally Active 1 ta blet Once a day Vitamin B12 [facility] 66179696493 1000 MCG Active 1 table t Orally Once a day Synthroid [facility] 23497064444 25 MCG Orally Active 1 ta blet on Once a day an empty stomach in the morning Aspirin [facility] 30615242608 81 MG Active TAKE 1 TABLE T BY MOUTH EVERY DAY Aspirin Low Dose [facility] 58304120455 81 MG Active ARSLAN E 1 TABLET BY MOUTH EVERY DAY Atenolol [facility] 52961908985 100 MG Active TAKE 1 TABL ET BY MOUTH EVERY DAY Nexium [facility] 66684525802 40 MG Active TAKE ONE CAPSULE BY MOUTH EVERY DAY ProAir HFA [facility] 59231236522 108 (90 Base) Active 2 p uffs as MCG/ACT needed Inhalation every 6 hrs Furosemide ND 52670695116 20 MG Orally Active 1 ta blet Once a day Venlafaxine HCl [facility] 38265902749 75 MG Orally Active TAKE ONE ER Once a day CAPSULE BY MOUTH EVERY DAY Simvastatin [facility] 24221434212 40 MG Orally Active 1 t ablet in Once a day the evening Simvastatin [facility] 57087604300 40 MG Orally Active 1 t ablet in Once a day the evening Levothyroxine [facility] 06560636748 50 MCG Active TAKE 1 TABLET Sodium BY MOUTH EVERY DAY IN THE MORNING Aspirin [facility] 74196093171 81 MG Active TAKE 1 TABLE T BY MOUTH EVERY DAY Clopidogrel ND 55049862086 75 MG Orally Active 1 t ablet Bisulfate Once a day Tamsulosin HCl [facility] 47697874154 0.4 MG Orally Feb 17Feb Active 1 capsule Once a day [address] [facility] 38129977123 035446 UNIT/ML October 31, Active 4 - 6 ml Mouth/Throat 2019 swish, hermilo in Four times a in mouth as day long as possible then swallow Promethazine HCl [facility] 19502202834 25 MG/ML Active 1 ml as Injection needed every [address] [facility] 27877125632 100 MG Oral Active TAKE 1 CAPSULE BY MOUTH EVERY DAY Scopolamine ND 81041923250 1 MG/3DAYS Feb 18Feb Active 1 pat ch to Transdermal 2019, skin behind change every 2019 the ear a s days while needed needed Atenolol ND 23203823007 100 MG PO Once Active TAKE 1 TABLET daily BY MOUTH EVERY DAY Zofran [facility] 81368861017 8 MG Orally Active 1 tablet as Once a day needed Docusate Sodium ND 78452145809 100 MG Active TAKE 1 CAPSULE BY MOUTH TWICE A DAY Spironolactone [facility] 00732504934 25 MG Oral Active TA KE 1 TABLET BY MOUTH EVERY DAY Venlafaxine HCl [facility] 01459161530 75 MG Orally Active 1 capsule ER Once a day with food Nasonex [facility] 06006364031 50 MCG/ACT Active 2 sprays in Nasally Once a each nost ril day Hydrocodone-Aceta [facility] 40213187904 5-325 MG Active 1 tablet as minophen Orally every 6 needed hrs Clotrimazole [facility] 92807810071 1 % Externally Active 1 application Twice a day Results No Known Results Summary Purpose eClinicalWorks Submission
--- OUTSIDE RECORDS SUMMARY | 2020-05-04 22:14 | XMS REPORT | Summary of Care ---
:1955 Author Organization [facility] - Health Address [address] [place] [address] Care Team Providers Name Role Phone Mateus Miller Primary Care Provider Reason for Referral (Routine) Status Reason Specialty Diagnoses / Referred By Referred To Procedures Contact Contact New Request Diagnostic Diagnoses Cervical spondylosis without myelopathy [place], Radiology Procedures FL TIME OR (NON-REPORTABLE) Tyler Bush MD [id number] [place] [address] Reason for Visit Auth/Cert Status Reason Specialty Diagnoses / Procedures Referred By C ontact Referred To Contact Surgery Diagnoses Cervicalgia Radiculopathy, cervical region Cervicalgia [M54.2] Radiculopathy of cervical spine [M54.12] Adc Pre/Pacu/ Post Procedures [facility] CODING HELP CHG FLUOR NEEDLE/CATH SPINE/PARASPINAL DX/THER ADDON [place] NJX DX/THER SBST INTRLMNR CRV/THRC W/IMG GDN CERVICAL EPIDURAL STEROID INJECTION 99127 - [place] NJX DX/THER SBST INTRLMNR CRV/THRC W/IMG GDN [address] [place] [id number] - CHG FLUOR NEEDLE/CATH SPINE/ PARASPINAL DX/THER [place] [address] [place], [place] [address] Phone: Fax: Encounter Details Date Type Department Care Team Description 03/06/2020 [facility] [place] [address] [facility] [address] pedroza [address] [place] [address] [facility] [phone] [place] [id number] Allergies Active Allergy Reactions Severity Noted Date Comments Penicillins Rash Medium 10/05/2014 Metoclopramide Hcl Anxiety Medium 12/21/2014 Methylphenidate Anxiety 10/05/2014 documented as of this encounter (statuses as of 03/06/2020) Medications Medication Sig Dispensed Refills Start Date End Date Status PROAIR HFA 90 Inhale 2 Puffs 5 09/03/2014 Active mcg/actuation every 6 (six) hours inhaler as needed for Wheezing or Shortness of Breath. CREON Take 2 Tabs by 0 10/04/2014 Acti ve 36,000-114,000- mouth 2 (two) times 180,000 unit [...] for Chest pain. mometasone (NASONEX) Use 1 [place] in each 0 Active 50 mcg/actuation nostril. [...] 1 mL by 10 mL 1 03/27/2017 Acti ve (VITAMIN B-12) 1,000 Intramuscular route mcg/mL injection once every month. LEVOTHYROXINE 50 mcg TAKE 1 TABLET BY 30 tablet 0 10/27/2018 Active tabletIndications: MOUTH EVERY Hypothyroidism MORNING. (acquired) psyllium-sucrose Take 1 Packet by 540 g 2 03/23/2019 Active (METAMUCIL, SUGAR,) mouth 3 (three) powderIndications: times daily. Hemorrhoids, unspecified hemorrhoid type docusate (COLACE) Take 1 capsule by 60 capsule 1 03/23/2019 Active 100 mg mouth 2 (two) times capsuleIndications: daily. Hemorrhoids, unspecified hemorrhoid type furosemide 40 mg Take 40 mg by mouth 0 06/25/2019 Active tablet daily. ketorolac 10 mg Take 1 tablet by 120 tablet 0 09/12/2019 Active tabletIndications: mouth every 6 (six) Pyelonephritis hours as needed for Pain (scale 7-10) (ONLY WHEN IN breakthrough PAIN, avoid use if pain tolerable). ondansetron 4 mg Take 1 tablet by 90 tablet 0 09/12/2019 Active tabletIndications: mouth every 8 Pyelonephritis (eight) hours as needed for Nausea and Vomiting (N/V). oxybutynin chloride Take 1 tablet by 30 tablet 0 09/16/2019 Active 5 mg mouth 3 (three) tabletIndications: times daily. For Right ureteral stone bladder spasms or stent pain. tamsulosin 0.4 mg 24 Take 1 capsule by 28 capsule 0 09/16/2019 Active hr mouth daily. capsuleIndications: Right ureteral stone oxybutynin chloride Take 1 tablet by 30 tablet 0 09/23/2019 Active 5 mg mouth 3 (three) tabletIndications: times daily as Right ureteral stone needed for Bladder spasms. For bladder spasms or stent pain. nitrofurantoin 50 mg Take 1 capsule by 40 capsule 0 09/23/2019 Active capsuleIndications: mouth every 6 (six) Acute cystitis hours. without hematuria documented as of this encounter (statuses as of 03/06/2020) Active Problems Problem Noted Date Right ureteral stone 09/21/2019 Overview: Added automatically from request for adams chavez [id number] Obesity (BMI 30-39.9) 09/10/2019 Pyelonephritis 09/10/2019 Hemorrhoids, unspecified hemorrhoid type 02/17/2019 Overview: Added automatically from request for adams chavez [id number] Seizure 02/03/2017 Chest pain, atypical 09/24/2016 Chronic confusion 09/24/2016 Adrenal insufficiency 07/20/2016 Hypothyroidism (acquired) 07/20/2016 Unstable angina 07/19/2016 Dyspnea 07/18/2016 Personal history of transient ischemic attack (TIA), a nd cerebral 09/11/2014 infarction without residual deficits History of stroke 09/11/2014 Hypertension 09/11/2014 Cerebrovascular accident (CVA) 09/11/2014 Chronic coronary artery disease 09/11/2014 Cervical spondylosis without myelopathy 12/05/2008 Displacement of lumbar intervertebral disc without mye lopathy 12/05/2008 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 Obstructive sleep apnea 12/02/2007 Overview: ICD10 Diagnosis Term Concrete Pipe Plant Supervisor Utility 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 Anxiety state 11/04/2007 Overview: ICD10 Diagnosis Term Concrete Pipe Plant Supervisor Utility Insomnia 11/04/2007 Overview: ICD10 Diagnosis Term Concrete Pipe Plant Supervisor Utility Other chest pain 07/09/2007 Essential hypertension, benign 07/09/2007 HLD (hyperlipidemia) 07/09/2007 Overview: ICD10 Diagnosis Term Concrete Pipe Plant Supervisor Utility gerd 07/09/2007 Chronic obstructive airway disease with asthma 008 Overview: ICD10 Diagnosis Term Concrete Pipe Plant Supervisor Utility documented as of this encounter (statuses as of 03/06/2020) Immunizations Name Administration Dates Next Due Influenza Virus Vaccine 09/22/2007 Pneumococcal Polysaccharide, PPSV23 (PNEUMOVAX) 09/22/2007 documented as of this encounter Social History Tobacco Use Types Packs/Day Years Used Date Former Smoker Cigarettes 0 25 Smokeless Tobacco: Never Used Comments: received fact sheets on stoppi ng smoking Alcohol Use Drinks/Week oz/Week Comments No 0 Standard drinks or equivalent 0.0 Education Answer Date Recorded What is the highest level of school you have completed or 10 th grade 09/10/2019 the highest degree you have received? Financial Resource Strain Answer Date Recorded How hard is it for you to pay for the very basics like Not v jake hard 09/10/2019 food, housing, medical care, and heating? Food Insecurity Answer Date Recorded Within the past 12 months, you worried that your food would Never true 09/10/2019 run out before you got money to buy more. Within the past 12 months, the food you bought just didn't N ever true 09/10/2019 last and you didn't have money to get more. Transportation Needs Answer Date Recorded In the past 12 months, has lack of transportation kept you f rom No 09/10/2019 medical appointments or from getting medications? In the past 12 months, has lack of transportation kept you f rom No 09/10/2019 meetings, work, or getting things needed for daily living? Sex Assigned at Date Recorded Not on file COVID-19 Exposure Response Date Recorded In the last month, have you been in contact with No / Unsure 03/02/2020 12:47 PM CDT someone who was confirmed or suspected to have Coronavirus / COVID-19? documented as of this encounter Last Filed Vital Signs Vital Sign Reading Time Taken Comments Blood Pressure 116/65 03/06/2020 12:50 PM CDT Pulse 67 03/06/2020 9:40 AM CDT Temperature 36.7 C (98 F) 03/06/2020 12:50 PM CDT Respiratory Rate 20 03/06/2020 12:50 PM CDT Oxygen Saturation 100% 03/06/2020 12:00 PM CDT Inhaled Oxygen Concentration - - Weight 88 kg (194 lb) 03/02/2020 12:45 PM CDT Height 165.1 cm (5' 5") 03/02/2020 12:45 PM CDT Body Mass Index 32.28 03/02/2020 12:45 PM CDT documented in this encounter Discharge Summaries Tyler Henson MD - 03/06/2020 8:15 AM CDTCONDITION AT DISCHARGE: Patient was discharged from the facility in stable condition. Please see faustina gonzalez instructions. FOLLOW UP CARE: See post op instructions. DISCHARGE DISPOSITION: HOME DISCHARGE INSTRUCTIONS GIVEN TO: PATIENT documented in this encounter Discharge Instructions Ya Cherry RN - 03/06/2020POST OPERATIVE DISCHARGE INSTRUCTIONS For patients who have [...] be up and about according to the doctor's instructions. 2. You may have some pain. [...] If unable to reach your physician, call [facility] at [phone] for physician nutrition teacher. In case of emergency, go to nearest emergency room. 8. Your symptoms may remain the same or occasionally become a little worse over the next 48 hours. Rest and the application of a cold compress may resolve these symptoms. documented in this encounter Progress Notes Marge Mckoy - 03/06/2020 8:22 AM CDTRoutine OR rounding visit - patient stated no support needed/wanted at this time. Follow-up chaplainsupport is available if needed/wanted. documented in this encounter Nursing Notes Ya Arellano, RN - 03/06/2020 10:36 AM CDTPatient eating, no nausea at this time. Swelling down. Area soft blanches. Ya shukla RN - 03/06/2020 9:24 AM CDTIce in use per anesthesia. documented in this encounter Miscellaneous Notes Nursing Note - Ya Arellano RN - 03/06/2020 9:07 AM CDTContinued to monitor area of infiltration. Elevated on pillows. Decreased swelling noted. documented in this encounter Plan of Treatment Date Type Specialty Care Team Description 03/09/2020 Office Visit Otolaryngology Tang Alvarado MD [address] [place] [address] [phone] Health Maintenance Due Date Last Done Comments HEPATITIS C (HCV) SCREEN 1955 DTaP,Tdap,and Td Vaccines (1 - Tdap) 01/15/1976 Breast Cancer Screening (MAMMOGRAM) 1997 COLON CANCER SCREENING ANNUAL FIT/FOBT 2007 COLON CANCER SCREENING FIT DNA EVERY 3 YEARS 2007 COLON CANCER SCREENING SIGMOIDOSCOPY EVERY 5 YEARS 2007 COLONOSCOPY 2007 Colorectal Cancer Screening 2007 Zoster Recombinant Vaccine (SHINGRIX) (1 of 2) 2007 PAP SMEAR 02/01/2007 02/02/2004 PNEUMOCOCCAL 0-64 YEARS COMBINED SERIES (2 of 3 - 09/21/2008 09/22/2007 PCV13) LUNG CANCER SCREEN: Recommended for age 55-80 with 30 07/17/2017 07/17/2016 + pack year history INFLUENZA VACCINE (#1) 2020 09/22/2007 Depression Screening 03/06/2021 03/06/2020 documented as of this encounter Implants Implanted Type Area Programmer Or Analyst Device Shelf Model / Identifier Expiration Serial / Date Lot Stent STENT Set Stent Ureteral 6fr Kandis 26cml [place] 07/07/2022 [id number] / Implanted: Qty: 1 on 09/16/2019 by Braeden Hansen MD at [facility] Scientific [id number] Stent Ureteral Percuflex Plus 6x26 [employer] # [id number] [[id number]] Right: [place] 07/07/2022 [id number] / Implanted: Qty: 1 on 09/23/2019 by Braeden Hansen MD at [facility] U[employer] Scientific [id number] documented as of this encounter Procedures Procedure Name Priority Date/Time Associated Diagnosis Comme nts FL TIME OR Routine 03/06/2020 8:55 AM Cervical spondylosis Results for this (NON-REPORTABLE) CDT without myelopathy proce dure are in the results section. [facility] - BREAST AND Routine 02/11/2020 12:01 AM CERVICAL CANCER CDT CONTROL PROGRAM - COMPREHEM documented in this encounter Results FL TIME OR (NON-REPORTABLE) (03/06/2020 8:55 AM CDT) Specimen Narrative Performed At These images do not require a Radiology diagnostic rep ort. PACS Performing Organization Address City/State/Zipcode Phone Number PACS documented in this encounter Visit Diagnoses Diagnosis Cervical spondylosis without myelopathy - Primary documented in this encounter Administered Medications Medication Order MAR Action Action Date Dose Rate Site bupivacaine (preserv free) New Bag 03/06/2020 8:26 AM CDT 5 mL/hr 5 mL/hr Neck (SENSORCAINE MPF) 0.25 % (2.5 mg/mL) injection CONTINUOUS PRN, Starting 03/06/20 at 0818, Until Discontinued, Routine, Intra-op iohexoL (OMNIPAQUE 350 BULK-50 mL) Given 03/06/2020 8:26 AM CDT 10 mL Neck injection PRN, Starting 03/06/20 at 0818, Until Discontinued, Routine, Intra-op lactated ringers IV infusion 1,000 mL at 20 mL/hr, 1,000 mL, IV Infusion, ONCE , 1 dose, Fri03/06/20 at 1315, Routine, DSU Pre-op lactated ringers IV infusion 1,000 mL at 75 mL/hr, 1,000 mL, IV Infusion, CONT INUOUS, Starting 03/06/20 at 1315, Until Discontinued, Routine, PACU lidocaine 1% (XYLOCAINE) 10 mg/mL (1 %) Given 03/06/2020 8:26 A M CDT 6 mL Neck injection PRN, Starting 03/06/20 at 0826, Until Discontinued, Routine, Intra-op sodium chloride 10% injection 10 mL syri nge Given 03/06/2020 8:26 AM CDT 5 mL PRN, Starting 03/06/20 at 0826, Until Discontinued, 10 mL, Intra-op triamcinolone acetonide (KENALOG) Given 03/06/2020 8:26 AM CDT 40 mg Neck injection PRN, Starting 03/06/20 at 0826, Until Discontinued, Routine, Intra-op documented in this encounter Insurance Payer Benefit Plan / Subscriber ID Effective Dates Phone Addre ss Type Group [facility] [id number] 2011-Present Medicaid COMM PLAN - PLUS MANAGED MEDICAID documented as of this encounter
--- OUTSIDE RECORDS SUMMARY | 2020-05-04 22:14 | XMS REPORT | Summary of Care ---
:1955 Author Organization [facility] - [facility] Address [address] [place] [address] Care Team Providers Name Role Phone Mateus Miller Primary Care Provider Reason for Visit Reason Comments LAB WORK Auth/Cert Status Reason Specialty Diagnoses / Referred By Referred To Procedures Contact Contact Clinical Medical Diagnoses COVID-19 [facility] Lab Laboratory Procedures COVID-19 (ID NOW RAPID TESTING) [address] [place] [address] Encounter Details Date Type Department Care Team Description 03/03/2020 Laboratory Only [facility] Jules Waters MD [address] [facility] [address] [place] [address] Pre-operative Phlebotomy Only, [facility] Test clearance (Primary Lab-[facility] Dx) [address] [place] [address] Allergies Active Allergy Reactions Severity Noted Date Comments Penicillins Rash 10/05/2014 Metoclopramide Hcl Anxiety 12/21/2014 Methylphenidate Anxiety 10/05/2014 documented as of this encounter (statuses as of 03/03/2020) Medications Medication Sig Dispensed Refills Start Date [...] for Chest pain. mometasone (NASONEX) Use 1 [place] in each 0 Active 50 mcg/actuation nostril. 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 Anxiety state 11/04/2007 Overview: ICD10 Diagnosis Term Steward/Stewardess Room Utility Insomnia 11/04/2007 Overview: ICD10 Diagnosis Term Steward/Stewardess Room Utility Other chest pain 07/09/2007 Essential hypertension, benign 07/09/2007 HLD (hyperlipidemia) 07/09/2007 Overview: ICD10 Diagnosis Term Steward/Stewardess Room Utility gerd 07/09/2007 Chronic obstructive airway disease with asthma 008 Overview: ICD10 Diagnosis Term Steward/Stewardess Room Utility documented as of this encounter (statuses as of 03/03/2020) Immunizations Name Administration Dates Next Due Influenza [...] Signs Not on filedocumented in this encounter Nursing Notes Snow Carranza - 03/03/2020 9:00 AM CDTcovid documented in this encounter Plan of Treatment Date Type Specialty Care Team Description 03/06/2020 Hospital Encounter Surgery Tyler Henson MD [address] [place] [phone] 03/06/2020 Surgery Surgery Tyler Henson CERVICAL EP BRETT Bush MD STEROID INJECTION [id number] [place] [phone] 03/09/2020 Office Visit Otolaryngology Tang Alvarado MD [address] [place] [address] Name Type Priority Associated Diagnoses Date/Ti me COVID-19 (ID NOW RAPID LAB Routine Pre-operative kaylin yaron 03/03/2020 9:47 AM CDT TESTING) Name Type Priority Associated Diagnoses Order S chedule COVID-19 (ID NOW RAPID LAB Routine Pre-operative kaylin yaron Expected: 03/03/2020, TESTING) Expires: 2020 Health Maintenance Due Date Last Done Comments [...] INFLUENZA VACCINE (#1) 2020 09/22/2007 Depression Screening 01/09/2021 01/10/2020 documented as of this encounter Implants Implanted Type Area Music Adapter Device Shelf Model / Identifier Expiration Serial / Date Lot Stent STENT Set Stent Ureteral 6fr Kandis 26cml [place] 07/07/2022 [id number] / Implanted: Qty: 1 on 09/16/2019 by Braeden Hansen MD at [facility] Scientific [id number] 30 / [id number] Stent Ureteral Percuflex Plus 6x26 [employer] # [id number] [[id number]] Right: [place] 07/07/2022 [id number] / Implanted: Qty: 1 on 09/23/2019 by Braeden Hansen MD at [facility] Ureter Scientific [id number] 30 / [id number] documented as of this encounter Results Not on filedocumented in this encounter Visit Diagnoses Diagnosis Pre-operative clearance - Primary Preoperative examination, unspecified Cervicalgia Radiculopathy of cervical spine Brachial neuritis or radiculitis nos documented in this encounter Insurance Payer Benefit Plan / Subscriber ID Effective Dates Phone Addre ss Type Group [facility] [id number] 2011-Present Medicaid COMM PLAN - PLUS MANAGED MEDICAID documented as of this encounter
--- OUTSIDE RECORDS SUMMARY | 2020-05-04 22:14 | XMS REPORT ---
:1955 Author Organization [facility] Address [address] [place], [address] [place] [address] Care Team Providers Name Role Phone Miller Unavailable [phone] PROBLEMS Type Condition ICD9-CM [id number] Onset Condition SNOMED Code Notes Code Code Dates Status Problem Peripheral G62.9 Active 728078346 neuropathy Problem Chronic K86.1 Active 964960405 pancreatitis Problem Fatty liver K76.0 Active 803754613 Problem Insomnia G47.00 Active 065440738 Problem Stented coronary Z95.5 Active 442036907 artery Problem GERD K21.9 Active 093335919 (gastroesophageal reflux disease) Problem Degeneration, M51.37 Active 48197270 intervertebral disc, lumbosacral Problem Atherosclerosis of I25.10 Active 9359523448032 03 coronary artery of [place] heart Problem Degenerative joint M19.90 Active 158889756 disease Problem Varicose veins I86.8 Active 727418865 Problem Hypertension I10 Active 08460285 Problem Dizziness R42 Active 254293410 Problem Postsurgical N95.8 Active 419672388 menopause Problem History of Z86.73 Active 673255561 transient ischemic attack Problem History of Z86.73 Active 830492785 cerebrovascular accident 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 616529646 hypofunction Problem Vitamin B12 D51.9 Active 51665083 deficiency anemia Problem Simple renal cyst N28.1 Active 19141633 Problem Stress disorder, F43.0 Active 24311393 acute Problem Lung nodule R91.1 Active 355439843 Problem Depression with F41.8 Active 554179554 anxiety Problem Vitamin D E55.9 Active 45016894 deficiency Problem Obstructive sleep G47.33 Active 98179568 apnea Problem Hyperlipidemia, E78.2 Active 007455646 mixed Problem Chronic J44.9 Active 94880635 obstructive pulmonary disease, unspecified COPD type Problem Hypothyroidism, E03.9 Active 71906393 unspecified type Problem Other chronic pain G89.29 Active 80189681 Problem Kidney stones N20.0 Active 18801999 ALLERGIES Allergen (clinical drug Drug/Non Drug Allergy Reaction Allergy Type Onset Date Status ingredient) documented on EMR metoclopramide Metoclopramide HCl([facility] anxiety Drug Allergy Active Code:[address]-32) PCN hives Drug Allergy Active ENCOUNTERS from 1955 to 2020-03-17 Encounter Location Date Provider Diagnosis [facility] [address] [facility] Feb, Tonio Miller Hyp othyroidism, Family Medicine [address] [place] [address], [place] type [address].9 [place] [address] ; Depression w ith anxiety F41.8 ; Hyperlipidemia, mixed E78.2 ; Chronic obstructive pul monary disease, unspec ified COPD type J44.9 ; Hypertension I1 0 ; Atherosclerosis of coronary artery of [place] heart I2 5.10 ; Stented coronar y artery Z95.5 ; GERD (gastroesophage al reflux disease) K21.9 ; Low back pain M54.5 ; Other chronic pain G89.29 ; Cervic algia M54.2 ; Fatigue , unspecified typ e R53.83 ; Multip le joint pain M25. 50 ; Elevated erythr ocyte sedimentation r ate R70.0 ; Vitamin D deficiency E55. 9 and Vitamin B12 def iciency E53.8 IMMUNIZATIONS Vaccine Route Administration Date Status Vitamin B12 (Cyanocobalamin) IM Intramuscular Mar 16, 2020 Ad ministered Kenalog (Triamcinolone) IM Intramuscular Aug 03, 2019 Adminis tered Kenalog (Triamcinolone) IM Intramuscular Jul 06, 2019 Adminis tered Kenalog (Triamcinolone) IM Intramuscular May 17, 2019 Adminis tered Kenalog (Triamcinolone) Unknown May 27, 2018 Pending Kenalog (Triamcinolone) IM Intramuscular Mar 25, 2018 Adminis tered Kenalog (Triamcinolone) IM Intramuscular November 04, 2017 Adminis tered SOCIAL HISTORY Tobacco Use: Social History Observation Description Date Details (start date - stop date) Never Smoker Sex Assigned At : Social History Observation Description Sex Assigned At Unknown Alcohol Screen Question Answer Notes Did you have a drink containing alcohol in the past year? No Points 0 Interpretation Negative Tobacco Use/Smoking Question Answer Notes Are you a never smoker REASON FOR REFERRAL No Information VITAL SIGNS Height 65 in Feb, Weight 192.7 lbs Feb, Temperature 97.2 degrees Fahrenheit Feb, BMI 32.06 kg/m2 Feb, Oximetry 100 % Feb, Respiratory Rate 17 /min Feb, Blood pressure systolic 137 mm Hg Feb, Blood pressure diastolic 70 mm Hg Feb, MEDICATIONS Medication SIG (Take, Route, Start Date End Date Status Frequency, Duration) Tamsulosin HCl 0.4 MG 1 capsule Orally Once a Jan, Feb, Active day for 30 day(s) Vitamin D3 30124 UNIT 1 capsule Orally Once a Feb, May, Active week x 12 weeks for 30 day(s) Zofran 4 MG 1 tablet as needed Active Orally Every 8 hours for 5 days Hydrocodone-Acetaminophen 1 tablet as needed Active 5-325 MG Orally every 6 hrs Spironolactone 25 MG 1 tablet Orally Once a Active day for 90 Scopolamine 1 MG/3DAYS 1 patch to skin behind Jan, Feb, Active the ear as needed Transdermal change every 3 days while needed for 30 days Synthroid 25 MCG 1 tablet on an empty Act yovany stomach in the morning Orally Once a day for 90 days Gabapentin 100 MG TAKE 1 CAPSULE BY MOUTH Active EVERY DAY Oral for 30 Simvastatin 40 MG 1 tablet in the evening Active Orally Once a day for 30 day(s) Nexium 40 MG TAKE ONE CAPSULE BY Active MOUTH EVERY DAY Aspirin 81 MG TAKE 1 TABLET BY MOUTH Acti ve EVERY DAY Atenolol 100 MG TAKE 1 TABLET BY MOUTH Ac tive EVERY DAY PO Once daily for 30 days Levothyroxine Sodium 50 MCG TAKE 1 TABLET BY MOUTH Active EVERY DAY IN THE MORNING for 30 Clopidogrel Bisulfate 75 MG 1 tablet Orally Once a Active day Venlafaxine HCl ER 75 MG TAKE ONE CAPSULE BY Active MOUTH EVERY DAY Orally Once a day for 90 days Atenolol 100 MG TAKE 1 TABLET BY MOUTH Ac tive EVERY DAY for 30 Aspirin 81 MG TAKE 1 TABLET BY MOUTH Acti ve EVERY DAY for 30 ProAir HFA 108 (90 Base) 2 puffs as needed Active MCG/ACT Inhalation every 6 hrs Furosemide 20 MG 1 tablet Orally Once a A ctive day for 30 days Chetan [place] 100-62.5-25 1 puff Inhalation Once a Active MCG/INH day Linzess 145 mcg 1 capsule Orally Once a A ctive day Hydrocodone-Acetaminophen 1 tablet Orally Once a Active 5-325 MG day Atenolol 100 MG 1 tablet Orally Once a Ac tive day Nexium 24HR 20 MG 1 capsule Orally Once a Active day Aspirin Low Dose 81 MG TAKE 1 TABLET BY MOUTH Active EVERY DAY for 30 PROCEDURES No Information RESULTS No Results REASON FOR VISIT 2 WK F/U BRING ALL MEDS [id number] MEDICAL (GENERAL) HISTORY Type Description Date Medical History Hematuria, unspecified Medical History Hypertension Medical History History of transient ischemic attack Medical History History of cerebrovascular accident Medical History Obstructive sleep apnea Medical History Hyperlipidemia, mixed Medical History Atherosclerosis of coronary artery of na tive heart Medical History Stented coronary artery Medical History Depression with anxiety Medical History Fatty liver Medical History Simple renal cyst Medical History GERD (gastroesophageal reflux disease) Medical History Postsurgical menopause Medical History Vitamin B12 deficiency anemia Medical History Peripheral neuropathy Medical History Degeneration, intervertebral disc, lumbo sacral Medical History Degenerative joint disease Medical History Insomnia Medical History Chronic pancreatitis Medical History Varicose veins Medical History Dizziness Medical History Kidney stone Medical History Adrenal hypofunction Medical History Chronic obstructive pulmonary disease, u nspecified COPD type Medical History Hypothyroidism, unspecified type Surgical History Cholecystectomy Surgical History Hysterectomy Surgical History 2 C sections Surgical History Lung surgery Surgical History Bladder sling Goals Section No Information Health Concerns No Information MEDICAL EQUIPMENT No Information MENTAL STATUS No Information FUNCTIONAL STATUS No Information ASSESSMENTS Encounter Date Diagnosis Notes Feb, GERD (gastroesophageal reflux disease) ( ICD-10 - K21.9) Feb, Stented coronary artery (ICD-10 - Z95.5) Feb, Other chronic pain (ICD-10 - G89.29) Feb, Low back pain (ICD-10 - M54.5) Feb, Chronic obstructive pulmonary disease, u nspecified COPD type (ICD-10 - J44.9) Feb, Vitamin D deficiency (ICD-10 - E55.9) Feb, Hyperlipidemia, mixed (ICD-10 - E78.2) Feb, Elevated erythrocyte sedimentation rate (ICD-10 - R70.0) Feb, Atherosclerosis of coronary artery of na tive heart (ICD-10 - I25.10) Feb, Hypertension (ICD-10 - I10) Feb, Vitamin B12 deficiency (ICD-10 - E53.8) Feb, Hypothyroidism, unspecified type (ICD-10 - E03.9) Feb, Fatigue, unspecified type (ICD-10 - R53. 83) Feb, Cervicalgia (ICD-10 - M54.2) Feb, Depression with anxiety (ICD-10 - F41.8) Feb, Multiple joint pain (ICD-10 - M25.50) PLAN OF TREATMENT Medication Medication Name Sig Start Date Stop Date ProAir HFA 108 (90 Base) 2 puffs as needed Inhalation MCG/ACT every 6 hrs Aspirin 81 MG TAKE 1 TABLET BY MOUTH EVERY DAY Trelegy Ellipta 100-62.5-25 1 puff Inhalation Once a day MCG/INH Synthroid 25 MCG 1 tablet on an empty stomach in the morning Orally Once a day for 90 days Clopidogrel Bisulfate 75 MG 1 tablet Orally Once a day Vitamin D3 18161 UNIT 1 capsule Orally Once a week Feb, May, x 12 weeks for 30 day(s) Furosemide 20 MG 1 tablet Orally Once a day for 30 days Simvastatin 40 MG 1 tablet in the evening Orally Once a day for 30 day(s) Nexium 40 MG TAKE ONE CAPSULE BY MOUTH EVERY DAY Atenolol 100 MG TAKE 1 TABLET BY MOUTH EVERY DAY PO Once daily for 30 days Venlafaxine HCl ER 75 MG TAKE ONE CAPSULE BY MOUTH EVERY DAY Orally Once a day for 90 days Treatment Notes Assessment Notes Clinical Notes Hypothyroidism, unspecified type TSH: LOW. DECREASED Synthor id to 25 mcg. GOAL TSH 1-3. Education given. Depression with anxiety Stable. Denies SI/Hi. Seeing therapist. Doing well per patient. Education given. , -- Depression Education: Depression is a brain disease that makes you sad, but it is different than normal sadness. Depressed people feel down most of the time for at least 2 weeks. They also have at least one of these 2 symptoms: 1. They no longer enjoy or care about doing the things they used to like to do. 2. They feel sad, down, hopeless, or cranky most of the day, almost every day. It can also make you: lose or gain weight; sleep too much or too little; fell tired or like you have no energy; feel guilty or like you are worth nothing; forget things or feel confused; and think about or suicide. Medication and/or seeing a counselor (such as a psychiatrist, psychologist, nurse or social welfare clerk) may be necessary to treat depression. Both treatments take time to work. If you ever feel like you might hurt yourself or some else, then call your doctor or call 911 or go to the ER. Hyperlipidemia, mixed NON-COMPLIANT WITH PILL SIZE OF LIPITOR. CHANGED TO ZOCOR. Patient agreeable. Education given. , Hyperlipidemia Education: Hyperlipidemia refers to increased levels of lipids(fats) in the blood, including cholesterol and triglycerides. This can significantly increase your risk of developing coronary artery disease and peripheral artery disease. This can cause chest pain, heart attack, stroke, and fatigue. Treatment is recommended to decrease your risk. Treatment includes: lifestyle modification, low salt/low fat diet, exercise, tobacco cessation, low alcohol intake and sometimes medication. Blood tests (TC,TG, HDL, LDL) are utilized to determine treatment regimens. TC(Total cholesterol) should be below 200. TG(Total Triglycerides) should be below 150. HDL(Good cholesterol) should be above 40. LDL(Bad Cholesterol) should be below 130(if you have one risk factor) or less than 100( if you have more than one risk factor or have DM/CAD/PVD). Compliance with medication and treatment is vital. If you have questions, talk to your doctor. Chronic obstructive pulmonary Managed by . Educa tion disease, unspecified COPD type given. ENCOURAGED TO MAKE PRAVIN T WILBUR. ?Nodule and if f/u CT contrast needed. Hypertension Controlled. Education given. Instructed to monitor at home and bring log. Atherosclerosis of coronary artery Managed by Cardiology. of [place] heart GERD (gastroesophageal reflux Education given. , We have disease) discussed the pathophysiology of reflux disease and we discussed lifestyle modifications to avoid reflux that include elevation head of the bed, avoid alcohol, avoid caffeine, avoid maintenance, avoid tight clothing, avoid eating within 3-4 hours before bedtime, and avoiding smoking. Low back pain PNM: on Hydrocodone. Multiple joint pain Discussed differential diagnosis extensively patient. Education given. REFERRAL TO RHEUM Elevated erythrocyte sedimentation . Discussed differential diagnosis rate with patient. Education given. Will repeat. REFERRAL TO RHEUM. ENCOURAGED TO MAKE APPT. Vitamin B12 deficiency Discussed DDx. Education given. Discussed IM vs PO. Patient has taken PO in the past with minimal change. If improvement noted will schedule injection every 2 weeks. If not will transition to PO. Discussed side effect panel. Encouraged to make dietary and lifestyle changes. Vitamin D deficiency LOW. Start 97288 iu/weekly x 12 weeks then transition to 6062-4487 IU Daily. Side effec tidscussed. Discussed on causes of Vit D Def. Increase sunlight + Hydration + Exercise + Food High in Vit D and OTC supplements. Treatment Notes Test Name Order Date Lipid Panel With LDL/HDL Ratio 2020-03-17 Thyroid Panel With TSH 2020-03-17 Vitamin B12 2020-03-17 Comp. Metabolic Panel (14) (CMP) 2020-03-17 CBC With Differential/Platelet 2020-03-17 Vitamin D, 25-Hydroxy 2020-03-17 Next Appt Details 2 Months + Labs 1 week Reason: Provider Name:Tnoio Miller 2020-03-30 1 0:45:00 AM, [address], [address], [place], [address], Provider Name:Tonio Miller 2020-04-13 1 0:45:00 AM, [address], [place], [address], Provider Name:Tonio Miller 2020-05-09 1 0:45:00 AM, [address], [place], [address], Provider Name:Tonio Miller 2020-05-16 0 3:00:00 PM, [address], [place], [address], Insurance Providers Payer Name Payer Payer Insured Patient Coverage Coverage End Address Phone Name Relationship to Start Date Yunior e Insured [employer] [phone] IsaackurtNicole koroma 2017 [facility] [facility] [address] a A [facility] [id number]
--- OUTSIDE RECORDS SUMMARY | 2020-05-04 22:15 | XMS REPORT ---
:1955 Author Organization [facility] Address [address] [place], [address] [place] [address] Care Team Providers Name Role Phone Miller Unavailable [phone] PROBLEMS Type Condition ICD9-CM [id number] Onset Condition SNOMED Code Notes Code Code Dates Status Problem Peripheral G62.9 Active 940052832 neuropathy Problem Chronic K86.1 Active 481399956 pancreatitis Problem Fatty liver K76.0 Active 372096877 Problem Insomnia G47.00 Active 750514930 Problem Stented coronary Z95.5 Active 804224074 artery Problem GERD K21.9 Active 530873272 (gastroesophageal reflux disease) Problem Degeneration, M51.37 Active 93607964 intervertebral disc, lumbosacral Problem Atherosclerosis of I25.10 Active 3417537782865 03 coronary artery of [place] heart Problem Degenerative joint M19.90 Active 511214755 disease Problem Varicose veins I86.8 Active 234902982 Problem Hypertension I10 Active 49610408 Problem Dizziness R42 Active 314064189 Problem Postsurgical N95.8 Active 096128505 menopause Problem History of Z86.73 Active 088884534 transient ischemic attack Problem History of Z86.73 Active 640814892 cerebrovascular accident 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 099430619 hypofunction Problem Vitamin B12 D51.9 Active 47742891 deficiency anemia Problem Simple renal cyst N28.1 Active 01904949 Problem Stress disorder, F43.0 Active 09934261 acute Problem Lung nodule R91.1 Active 466692254 Problem Depression with F41.8 Active 482551807 anxiety Problem Vitamin D E55.9 Active 75323490 deficiency Problem Obstructive sleep G47.33 Active 12811197 apnea Problem Hyperlipidemia, E78.2 Active 506626144 mixed Problem Chronic J44.9 Active 60076471 obstructive pulmonary disease, unspecified COPD type Problem Hypothyroidism, E03.9 Active 75810081 unspecified type Problem Other chronic pain G89.29 Active 82097600 Problem Kidney stones N20.0 Active 48758094 ALLERGIES Allergen (clinical drug Drug/Non Drug Allergy Reaction Allergy Type Onset Date Status ingredient) documented on EMR metoclopramide Metoclopramide HCl([facility] anxiety Drug Allergy Active Code:[address]-45) PCN hives Drug Allergy Active ENCOUNTERS from 1955 to 2020-03-29 Encounter Location Date Provider Diagnosis [facility] [address], [place] [address] IMMUNIZATIONS Vaccine Route Administration Date Status Vitamin [...] REASON FOR REFERRAL No Information VITAL SIGNS No information MEDICATIONS Medication SIG (Take, Route, Start Date End Date Status Frequency, Duration) Aspirin 81 MG TAKE 1 TABLET BY MOUTH Acti ve EVERY DAY for 30 Nexium 40 MG TAKE ONE CAPSULE BY Active MOUTH EVERY DAY Simvastatin 40 MG 1 tablet in the evening Active Orally Once a day for 30 day(s) Aspirin 81 MG TAKE 1 TABLET BY MOUTH Acti ve EVERY DAY Hydrocodone-Acetaminophen 1 tablet as needed Active 5-325 MG Orally every 6 hrs Hydrocodone-Acetaminophen 1 tablet Orally Once a Active 5-325 MG day ProAir HFA 108 (90 Base) 2 puffs as needed Active MCG/ACT Inhalation every 6 hrs Venlafaxine HCl ER 75 MG 1 capsule with food Active Orally Once a day for 90 Synthroid 25 MCG 1 tablet on an empty Act yovany stomach in the morning Orally Once a day for 90 days Gabapentin 100 MG TAKE 1 CAPSULE BY MOUTH Active EVERY DAY Oral for 30 Atenolol 100 MG TAKE 1 TABLET BY MOUTH Ac tive EVERY DAY for 30 Spironolactone 25 MG 1 tablet Orally Once a Active day for 90 Linzess 145 mcg 1 capsule Orally Once a A ctive day Nexium 24HR 20 MG 1 capsule Orally Once a Active day Levothyroxine Sodium 50 MCG TAKE 1 TABLET BY MOUTH Active EVERY DAY IN THE MORNING for 30 Furosemide 20 MG 1 tablet Orally Once a A ctive day for 30 days Trelegy Ellipta 100-62.5-25 1 puff Inhalation Once a Active MCG/INH day Aspirin Low Dose 81 MG TAKE 1 TABLET BY MOUTH Active EVERY DAY for 30 Atenolol 100 MG TAKE 1 TABLET BY MOUTH Ac tive EVERY DAY PO Once daily for 30 days Azithromycin 250 MG 2 tablets on the first Mar, Mar, Active day, then 1 tablet daily for 4 days Orally Once a day for 5 day(s) Clopidogrel Bisulfate 75 MG 1 tablet Orally Once a Active day Zofran 4 MG 1 tablet as needed Active Orally Every 8 hours for 5 days Atenolol 100 MG 1 tablet Orally Once a Ac tive day Vitamin D3 24851 UNIT 1 capsule Orally Once a 23 Feb, 2020 May, Active week x 12 weeks for 30 day(s) PROCEDURES No Information RESULTS No Results REASON FOR VISIT dizzy, fatigue--> ED MEDICAL (GENERAL) HISTORY Type Description Date Medical [...] No Information FUNCTIONAL STATUS No Information ASSESSMENTS No Information PLAN OF TREATMENT Medication Medication Name Sig Start Date Stop Date Azithromycin 250 MG 2 tablets on the first day, then 1 Mar, Mar, tablet daily for 4 days Orally Once a day for 5 day(s) Next Appt Details Provider Name:Tonio Miller 2020-03-30 1 0:45:00 AM, [address], [place], [address], Provider Name:Tonio Miller 2020-04-13 1 0:45:00 AM, [address], [place], [address], Provider Name:Tonio Miller 2020-05-09 1 0:45:00 AM, [address], [place], [address], Provider Name:Tonio Miller 2020-05-16 0 3:00:00 PM, [address], [place], [address], Insurance Providers Payer Name Payer Payer Insured Patient Coverage Coverage End Address Phone Name Relationship to Start Date Yunior e Insured [employer] [phone] Nicole Barone self [address] [facility] [id number]
--- OUTSIDE RECORDS SUMMARY | 2020-05-04 22:15 | XMS REPORT ---
:1955 Author Organization [facility] Address [address] [place], 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 88415758 intervertebral disc, lumbosacral Problem Atherosclerosis of I25.10 Active 4615426782331 03 coronary artery of [place] heart Problem Degenerative joint M19.90 Active 256355926 disease Problem Varicose veins I86.8 Active 724479347 Problem Hypertension I10 Active 90352856 Problem Dizziness R42 Active 922379766 Problem Postsurgical N95.8 Active 570930499 menopause Problem History of Z86.73 Active 385691886 transient ischemic attack Problem History of Z86.73 Active 612951715 cerebrovascular accident 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 Problem Vitamin B12 D51.9 Active 26892486 deficiency anemia Problem Simple renal cyst N28.1 Active 10034909 Problem Stress disorder, F43.0 Active 71061695 acute Problem Lung nodule R91.1 Active 097594347 Problem Depression with F41.8 Active 347071880 anxiety Problem Vitamin D E55.9 Active 01397192 deficiency Problem Obstructive sleep G47.33 Active 56596403 apnea Problem Hyperlipidemia, E78.2 Active 859239866 mixed Problem Chronic J44.9 Active 99705797 obstructive pulmonary disease, unspecified COPD type Problem Hypothyroidism, E03.9 Active 98639053 unspecified type Problem Other chronic pain G89.29 Active 06140483 Problem Kidney stones N20.0 Active 81079426 ALLERGIES Allergen (clinical drug Drug/Non Drug Allergy Reaction Allergy Type Onset Date Status ingredient) documented on EMR metoclopramide Metoclopramide HCl([facility] anxiety Drug Allergy Active Code:[address]-38) PCN hives Drug Allergy Active ENCOUNTERS from 1955 to 2020-03-30 Encounter Location Date Provider Diagnosis [facility] [address], [facility] Palu Vit nayak B12 Family Medicine [address] [place], [facility] [place] [address] D51.9 IMMUNIZATIONS Vaccine Route Administration Date Status Vitamin B12 (Cyanocobalamin) IM Intramuscular Mar 30, 2020 Ad ministered Vitamin B12 (Cyanocobalamin) IM Intramuscular Mar 16, [...] No Information VITAL SIGNS Height 65 in Mar, Weight 191.2 lbs Mar, Temperature 97 degrees Fahrenheit Mar, BMI 31.81 kg/m2 Mar, Oximetry 99 % Mar, Respiratory Rate 18 /min Mar, Blood pressure systolic 145 mm Hg Mar, Blood pressure diastolic 71 mm Hg Mar, MEDICATIONS Medication SIG (Take, Route, Start Date End Date Status Frequency, Duration) Venlafaxine HCl ER 75 MG 1 capsule with food Active Orally Once a day for 90 Levothyroxine Sodium 50 MCG TAKE 1 TABLET BY MOUTH Active EVERY DAY IN THE MORNING for 30 Gabapentin 100 MG TAKE 1 CAPSULE BY MOUTH Active EVERY DAY Oral for 30 Atenolol 100 MG TAKE 1 TABLET BY MOUTH Ac tive EVERY DAY PO Once daily for 30 days Hydrocodone-Acetaminophen 1 tablet as needed Active 5-325 MG Orally every 6 hrs Trelegy Ellipta 100-62.5-25 1 puff Inhalation Once a Active MCG/INH day Zofran 4 MG 1 tablet as needed Active Orally Every 8 hours for 5 days Aspirin 81 MG TAKE 1 TABLET BY MOUTH Acti ve EVERY DAY Nexium 40 MG TAKE ONE CAPSULE BY Active MOUTH EVERY DAY Synthroid 25 MCG 1 tablet on an empty Act yovany stomach in the morning Orally Once a day for 90 days Aspirin Low Dose 81 MG TAKE 1 TABLET BY MOUTH Active EVERY DAY for 30 Furosemide 20 MG 1 tablet Orally Once a A ctive day for 30 days Clopidogrel Bisulfate 75 MG 1 tablet Orally Once a Active day Linzess 145 mcg 1 capsule Orally Once a A ctive day Simvastatin 40 MG 1 tablet in the evening Active Orally Once a day for 30 day(s) Hydrocodone-Acetaminophen 1 tablet Orally Once a Active 5-325 MG day Spironolactone 25 MG 1 tablet Orally Once a Active day for 90 ProAir HFA 108 (90 Base) 2 puffs as needed Active MCG/ACT Inhalation every 6 hrs Vitamin D3 12140 UNIT 1 capsule Orally Once a 23 Feb, 2020 May, Active week x 12 weeks for 30 day(s) Aspirin 81 MG TAKE 1 TABLET BY MOUTH Acti ve EVERY DAY for 30 PROCEDURES No Information RESULTS No Results REASON FOR VISIT B12 inj [place] MEDICAL (GENERAL) HISTORY Type Description Date Medical [...] No Information ASSESSMENTS Encounter Date Diagnosis Notes Mar, Vitamin B12 deficiency anemia (ICD-10 - D51.9) PLAN OF TREATMENT Next Appt Details prn Reason: Provider Name:Tonio Miller 2020-04-13 1 0:45:00 AM, [address], [address], [place], [address], Provider Name:Tonio Miller 2020-04-13 0 2:40:00 PM, [address], [address], [place], [address], Provider Name:Tonio Miller 2020-05-09 1 0:45:00 AM, [address], [place], [address], Provider Name:Tonio Miller 2020-05-16 0 3:00:00 PM, [address], [address], [place], [address], Insurance Providers Payer Name Payer Payer Insured Patient Coverage Coverage End Address Phone Name Relationship to Start Date Yunior e Insured [phone] Nicole Barone self [address] a A [facility] [phone]
--- OUTSIDE RECORDS SUMMARY | 2020-05-04 22:15 | XMS REPORT | Summary of Care ---
:1955 Author Organization [facility] - Health Address [address] [place] [address] Care Team Providers Name Role Phone Mateus Miller Primary Care Provider Encounter Details Date Type Department Care Team Description 02/29/2020 Orders Only [facility] Doctor Unassigned, No [address] [facility] [place] [address] [address] [place] [address] Allergies Active Allergy Reactions Severity Noted Date Comments Penicillins Rash Medium 10/05/2014 Metoclopramide Hcl Anxiety Medium 12/21/2014 Methylphenidate Anxiety 10/05/2014 documented as of this encounter (statuses as of 03/21/2020) Medications Medication Sig Dispensed Refills Start Date [...] for Chest pain. mometasone (NASONEX) Use 1 Carey in each 0 Active 50 mcg/actuation nostril. 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 Anxiety state 11/04/2007 Overview: ICD10 Diagnosis Term [employer] Insomnia 11/04/2007 Overview: ICD10 Diagnosis Term [employer] Other chest pain 07/09/2007 Essential hypertension, benign 07/09/2007 HLD (hyperlipidemia) 07/09/2007 Overview: ICD10 Diagnosis Term [employer] gerd 07/09/2007 Chronic obstructive airway disease with asthma 008 Overview: ICD10 Diagnosis Term [employer] documented as of this encounter (statuses as of 03/21/2020) Immunizations Name Administration Dates Next Due Influenza [...] filedocumented in this encounter Plan of Treatment Health Maintenance Due Date Last Done Comments [...] of this encounter Implants Implanted Type Area Desk Sergeant Device Shelf Model / Identifier Expiration Serial / Date Lot Stent STENT Set Stent Ureteral 6fr Kandis 26cml [place] 07/07/2022 [id number] / Implanted: Qty: 1 on 09/16/2019 by Braeden Hansen MD at [facility] Scientific [id number] 30 / [id number] Stent Ureteral Percuflex Plus 6x26 [place] [employer] # [id number] [[id number]] Right: [place] 07/07/2022 [id number] / Implanted: Qty: 1 on 09/23/2019 by Braeden Hansen MD at [facility] Scientific [id number] 30 / [id number] documented as of this encounter Procedures Procedure Name Priority Date/Time Associated Diagnosis Comme nts AUTHORIZATION FOR RELEASE Routine 02/29/2020 12:01 AM OF PHI CDT documented in this encounter Results Not on filedocumented in this encounter Additional Health Concerns Infection Onset Date Last Indicated Resolved Time COVID-19 Rule Out 03/03/2020 03/03/2020 03/03/2020 10: 56 AM CDT documented as of this encounter Insurance Payer Benefit Plan / Subscriber ID Effective Dates Phone Addre ss Type Group [facility] [id number] 2011-Present Medicaid COMM PLAN - PLUS MANAGED MEDICAID documented as of this encounter
--- OUTSIDE RECORDS SUMMARY | 2020-05-04 22:15 | XMS REPORT ---
:1955 Author Organization [facility] Address [address] [place], [address] [place] [address] Care Team Providers Name Role Phone Miller Unavailable [phone] PROBLEMS Type Condition ICD9-CM [id number] Onset Condition SNOMED Code Notes Code Code Dates Status Problem Peripheral G62.9 Active 708874498 neuropathy Problem Chronic K86.1 Active 653922381 pancreatitis Problem Fatty liver K76.0 Active 517455378 Problem Insomnia G47.00 Active 813974223 Problem Stented coronary Z95.5 Active 406147113 artery Problem GERD K21.9 Active 872710696 (gastroesophageal reflux disease) Problem Degeneration, M51.37 Active 07136603 intervertebral disc, lumbosacral Problem Atherosclerosis of I25.10 Active 4940491083564 03 coronary artery of [place] heart Problem Degenerative joint M19.90 Active 004644004 disease Problem Varicose veins I86.8 Active 990855146 Problem Hypertension I10 Active 47164266 Problem Dizziness R42 Active 363865024 Problem Postsurgical N95.8 Active 943455671 menopause Problem History of Z86.73 Active 686572808 transient ischemic attack Problem History of Z86.73 Active 583885472 cerebrovascular accident 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 994597495 hypofunction Problem Vitamin B12 D51.9 Active 26850182 deficiency anemia Problem Simple renal cyst N28.1 Active 23362302 Problem Stress disorder, F43.0 Active 05787916 acute Problem Lung nodule R91.1 Active 682829699 Problem Depression with F41.8 Active 717997019 anxiety Problem Vitamin D E55.9 Active 55429428 deficiency Problem Obstructive sleep G47.33 Active 18707182 apnea Problem Hyperlipidemia, E78.2 Active 216394293 mixed Problem Chronic J44.9 Active 61751581 obstructive pulmonary disease, unspecified COPD type Problem Hypothyroidism, E03.9 Active 34402955 unspecified type Problem Other chronic pain G89.29 Active 85387901 Problem Kidney stones N20.0 Active 50330104 ALLERGIES Allergen (clinical drug Drug/Non Drug Allergy Reaction Allergy Type Onset Date Status ingredient) documented on EMR metoclopramide Metoclopramide HCl([facility] anxiety Drug Allergy Active Code:[address]-70) PCN hives Drug Allergy Active ENCOUNTERS from 1955 to 2020-03-28 Encounter Location Date Provider Diagnosis [facility] [address] [place], [facility]re[facility] [address] [place], [place] [address] of right ear H 65.01 IMMUNIZATIONS Vaccine Route Administration Date Status Vitamin [...] VITAL SIGNS Height 65 in Mar, Weight 192.5 lbs Mar, Temperature 97.0 degrees Fahrenheit Mar, BMI 32.03 kg/m2 Mar, Oximetry 98 % Mar, Respiratory Rate 16 /min Mar, Blood pressure systolic 133 mm Hg Mar, Blood pressure diastolic 67 mm Hg Mar, MEDICATIONS Medication SIG (Take, [...] 250 MG 2 tablets on the first Mar,Mar, Active day, then 1 tablet daily for 4 days Orally Once a day for 5 day(s) Clopidogrel Bisulfate 75 MG 1 tablet Orally Once a Active day Zofran 4 MG 1 tablet as needed Active Orally Every 8 hours for 5 days Atenolol 100 MG 1 tablet Orally Once a Ac tive day Vitamin D3 50811 UNIT 1 capsule Orally Once a 23 Feb, 2020 May, Active week x 12 weeks for 30 day(s) PROCEDURES No Information RESULTS No Results REASON FOR VISIT Possible Rt earache IN [place] MEDICAL (GENERAL) HISTORY Type Description Date [...] Information ASSESSMENTS Encounter Date Diagnosis Notes Mar, Non-recurrent acute serous otitis media of right ear (ICD-10 - H65.01) PLAN OF TREATMENT Medication Medication Name Sig Start Date Stop Date Azithromycin 250 MG 2 tablets on the first day, then 1 Mar, Mar, tablet daily for 4 days Orally Once a day for 5 day(s) Treatment Notes Assessment Notes Clinical Notes Non-recurrent acute serous otitis With the duration and mitchell rity, will media of right ear treat with Zpak. Side effect panel discussed. Ok to alternative Tylenol and/or NSIADS as needed for pain and fever, if tolerated and use as directed. Discussed supportive measures as well for symptomatic relief. Avoid Q-tips and further water exposure. Anticipatory guidance given. Patient agreeable with plan. Next Appt Details prn Reason: Provider Name:Tonio Miller 2020-03-30 1 0:45:00 AM, [address], [place], [address], Provider Name:Tonio Miller 2020-04-13 1 0:45:00 AM, [address], [place], [address], Provider Name:Tonio Miller 2020-05-09 1 0:45:00 AM, [address], [place], [address], Provider Name:Tonio Miller 2020-05-16 0 3:00:00 PM, [address], [place], [address], Insurance Providers Payer Name Payer Payer Insured Patient Coverage Coverage End Address Phone Name Relationship to Start Date Yunior e Insured [facility] [phone] Nicole Barone self 2017 [facility] [id number] [facility] [address] [facility] [place] [address]
--- OUTSIDE RECORDS SUMMARY | 2020-05-04 22:16 | XMS REPORT ---
:1955 Author Organization [facility] Address [address] [place], [address] [place] [address] Care Team Providers Name Role Phone Miller Unavailable [phone] PROBLEMS Type Condition ICD9-CM [id number] Onset Condition SNOMED Code Notes Code Code Dates Status Problem Peripheral G62.9 Active 052138171 neuropathy Problem Chronic K86.1 Active 791649268 pancreatitis Problem Fatty liver K76.0 Active 647763211 Problem Insomnia G47.00 Active 940944660 Problem Stented coronary Z95.5 Active 371283000 artery Problem GERD K21.9 Active 671271020 (gastroesophageal reflux disease) Problem Degeneration, M51.37 Active 13110273 intervertebral disc, lumbosacral Problem Atherosclerosis of I25.10 Active 9073406661907 03 coronary artery of [place] heart Problem Degenerative joint M19.90 Active 679417781 disease Problem Varicose veins I86.8 Active 754620111 Problem Hypertension I10 Active 96609493 Problem Dizziness R42 Active 287976778 Problem Postsurgical N95.8 Active 437149033 menopause Problem History of Z86.73 Active 557888007 transient ischemic attack Problem History of Z86.73 Active 235420320 cerebrovascular accident 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 453411996 hypofunction Problem Vitamin B12 D51.9 Active 02255987 deficiency anemia Problem Simple renal cyst N28.1 Active 25779637 Problem Stress disorder, F43.0 Active 56199851 acute Problem Lung nodule R91.1 Active 952585627 Problem Depression with F41.8 Active 712730563 anxiety Problem Vitamin D E55.9 Active 40665549 deficiency Problem Obstructive sleep G47.33 Active 43789848 apnea Problem Hyperlipidemia, E78.2 Active 196187910 mixed Problem Chronic J44.9 Active 61238159 obstructive pulmonary disease, unspecified COPD type Problem Hypothyroidism, E03.9 Active 51185713 unspecified type Problem Other chronic pain G89.29 Active 71966258 Problem Kidney stones N20.0 Active 64683118 ALLERGIES Allergen (clinical drug Drug/Non Drug Allergy Reaction Allergy Type Onset Date Status ingredient) documented on EMR PCN hives Drug Allergy Active metoclopramide Metoclopramide HCl([facility] anxiety Drug Allergy Active Code:[address]-91) ENCOUNTERS from 1955 to 2020-04-10 Encounter Location Date Provider Diagnosis [facility] [address] [facility] [address] Mar, 2020 [place] [address] IMMUNIZATIONS Vaccine Route Administration Date Status Vitamin B12 (Cyanocobalamin) Unknown Apr 13, 2020 [place] Vitamin B12 (Cyanocobalamin) IM Intramuscular Mar 30, [...] TABLET BY MOUTH Acti ve EVERY DAY Aspirin Low Dose 81 MG TAKE 1 TABLET BY MOUTH Active EVERY DAY for 30 Zofran 4 MG 1 tablet as needed Active Orally Every 8 hours for 5 days ProAir HFA 108 (90 Base) 2 puffs as needed Active MCG/ACT Inhalation every 6 hrs Clopidogrel Bisulfate 75 MG 1 tablet Orally Once a Active day Hydrocodone-Acetaminophen 1 tablet Orally Once a Active 5-325 MG day Trelegy Ellipta 100-62.5-25 1 puff Inhalation Once a Active MCG/INH day Furosemide 20 MG 1 tablet Orally Once a A ctive day for 30 days Atenolol 100 MG TAKE 1 TABLET BY MOUTH Ac tive EVERY DAY PO Once daily for 30 days Vitamin D3 89092 UNIT 1 capsule Orally Once a 23 Feb, 2020 May, Active week x 12 weeks for 30 day(s) Linzess 145 mcg 1 capsule Orally Once a A ctive day Levothyroxine Sodium 50 MCG TAKE 1 TABLET BY MOUTH Active EVERY DAY IN THE MORNING for 30 Synthroid 25 MCG 1 tablet on an empty Act yovany stomach in the morning Orally Once a day for 90 days Nexium 40 MG TAKE ONE CAPSULE BY Active MOUTH EVERY DAY Venlafaxine HCl ER 75 MG 1 capsule with food Active Orally Once a day for 90 Hydrocodone-Acetaminophen 1 tablet as needed Active 5-325 MG Orally every 6 hrs Spironolactone 25 MG 1 tablet Orally Once a Active day for 90 Simvastatin 40 MG 1 tablet in the evening Active Orally Once a day for 30 day(s) Aspirin 81 MG TAKE 1 TABLET BY MOUTH Acti ve EVERY DAY for 30 Gabapentin 100 MG TAKE 1 CAPSULE BY MOUTH Active EVERY DAY Oral for 30 PROCEDURES No Information RESULTS No Results REASON FOR VISIT to ENT for vertigo patches MEDICAL (GENERAL) HISTORY Type Description Date Medical [...] Medication Name Sig Start Date Stop Date Aspirin Low Dose 81 MG TAKE 1 TABLET BY MOUTH EVERY DAY for 30 Next Appt Details Provider Name:Tonio Miller 2020-04-13 0 2:40:00 PM, [address], [place], [address], Provider Name:Tonio Miller 2020-05-09 1 0:45:00 AM, [address], [place], [address], Provider Name:Tonio Miller 2020-05-16 0 3:00:00 PM, [address], [place], [address], Insurance Providers Payer Name Payer Payer Insured Patient Coverage Coverage End Address Phone Name Relationship to Start Date Yunior e Insured [facility] [phone] Nicole Barone self [address] [place] [id number] [place] [id number] a A [facility] [id number]
--- OUTSIDE RECORDS SUMMARY | 2020-05-04 22:16 | XMS REPORT | Summary of Care ---
:1955 Demographics Address [address] [place] [address] Mobile Phone Home Phone Phone Email Address Preferred Language Sierra Leonean Marital Status Hoahaoism Affiliation Unknown Race White Ethnic Group or Author Organization [facility] Address [address] [place] [id number] Care Team Providers Name Role Phone Mateus Miller Primary Care Provider Reason for Referral (Routine) Status Reason Specialty Diagnoses / Referred By Referred To Procedures Contact Contact New Request Audiology Diagnoses Right-sided vestibular weakness Dizziness Tang Alvarado, Procedures CONSULT/REFERRAL AUDIOLOGY [address] [place] [address] [place] [address] Reason for Visit Reason Comments New Evaluation vertigo Encounter Details Date Type Department Care Team Description 04/07/2020 Office Visit [facility] Ear, Nose Tang Alvarado, Ri ght-sided vestibular weakness (Primary Dx); and Throat-League Ci ty Dizziness; [address] [facility] [address] [facility] Vert igo; [facility] [address] Syncope and [place], [place] [address] [place], [place] [phone] Allergies Active Allergy Reactions Severity Noted Date Comments Penicillins Rash Medium 10/05/2014 Metoclopramide Hcl Anxiety Medium 12/21/2014 Methylphenidate Anxiety 10/05/2014 documented as of this encounter (statuses as of 04/07/2020) Medications Medication Sig Dispensed Refills Start Date [...] for Chest pain. mometasone (NASONEX) Use 1 [place] in each 0 Active 50 mcg/actuation nostril. [...] 6 (six) Acute cystitis hours. without hematuria ergocalciferol, Take by mouth. 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 Anxiety state 11/04/2007 Overview: ICD10 Diagnosis Term Electronic Scanner Operator Utility Insomnia 11/04/2007 Overview: ICD10 Diagnosis Term Electronic Scanner Operator Utility Other chest pain 07/09/2007 Essential hypertension, benign 07/09/2007 HLD (hyperlipidemia) 07/09/2007 Overview: ICD10 Diagnosis Term Electronic Scanner Operator Utility gerd 07/09/2007 Chronic obstructive airway disease with asthma 008 Overview: ICD10 Diagnosis Term Electronic Scanner Operator Utility documented as of this encounter (statuses as of 04/07/2020) Immunizations Name Administration Dates Next Due Influenza [...] been in contact with No / Unsure 04/07/2020 10:16 AM CDT someone who was confirmed or suspected to have Coronavirus / COVID-19? documented as of this encounter Last Filed Vital Signs Vital Sign Reading Time Taken Comments Blood Pressure 138/92 04/07/2020 10:31 AM CDT Pulse 70 04/07/2020 10:31 AM CDT Temperature 35.4 C (95.7 F) 04/07/2020 10:24 AM CDT Respiratory Rate - - Oxygen Saturation - - Inhaled Oxygen Concentration - - Weight 87.7 kg (193 lb 6.4 oz) 04/07/2020 10:24 AM CDT Height 165.1 cm (5' 5") 04/07/2020 10:24 AM CDT Body Mass Index 32.18 04/07/2020 10:24 AM CDT documented in this encounter Progress Notes Topher Shelton MD - 04/07/2020 10:15 AM CDT Name: Toshia Barone MR No: [id number] Provider: Tang Alvarado M.D. Date: 04/07/2020 History: Chief Complaint: New Evaluation (vertigo) History of Present Illness: Toshia Barone is a 65 year old female with a complex medical history as described below notably CAD, CVA, TIA seen in consultation at the request of Dr. Paul Ignacio for a 3 year history of "vertigo." Previous diagnosis of vertigo with symptoms of dizziness that was described as room-spining and sensation of imbalance. She did have a syncopal fall 3 years ago after feeling lightheaded and presyncopal and imbalance. Worked up for TIA / Stroke at that time and found no significant carotid artery stenosis but with some atherosclerosis of cerebral vasculature. Reports that lightheadedness is now persistent but worsens with quick position change and sometimes when laying down in bed. Reports periodic episodes of imbalance associated with right ear fullness, pressure, and tinnitus. In clinic today, patient reports feeling persistent lightheadedness. When standing for BP testing upon arrival, patient reported feeling a little lightheaded. Patient reports attempting some vestibular exercises she found online that results in room spinning. 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 After first fall 2-3 years ago that was due to dizziness and imbalance, patient felt nausea and an "off feeling" next day after fall. Also states at times she may have a laughing spell that results in presyncope and head bobbing. No recent audiogram. Reports had recent ultrasound of the carotids ordered by cardroom drawing runner and that there is 95% bilateral stenosis. No other ENT concerns. Past Medical Hx: Past Medical History: Diagnosis Date Anxiety state, unspecified CAD (coronary artery disease) stent 25 years ago Chest pain Occasional Chronic depressive personality disorder Chronic neck and back pain Chronic obstructive asthma, unspecified 07/09/2007 DVT (deep venous thrombosis) RLE 10 years ago Esophageal reflux 07/09/2007 Essential hypertension, benign 07/09/2007 CAD Hypoglycemic disorder Other and unspecified hyperlipidemia 07/09/2007 Stroke history with slight left sided weakness. no problems in years Thyroid disease TIA (transient ischemic attack) Unspecified sleep apnea Past Surgical Hx: Past Surgical History: Procedure Laterality Date CERVICAL EPIDURAL STEROID INJECTION N/A 12/26/2014 Surgeon: Tyler Henson MD; [facility] CERVICAL EPIDURAL STEROID INJECTION N/A 01/02/2015 Surgeon: Tyler Henson MD; [facility] CERVICAL EPIDURAL STEROID INJECTION N/A 09/01/2017 Surgeon: Tyler Henson MD; Location: [facility] CERVICAL EPIDURAL STEROID INJECTION N/A 09/08/2017 Surgeon: Tyler Henson MD; Location: [facility] CERVICAL EPIDURAL STEROID INJECTION N/A 09/14/2018 Surgeon: Tyler Henson MD; Location: [facility] CERVICAL EPIDURAL STEROID INJECTION N/A 09/28/2018 Surgeon: Tyler Henson MD; Location: [facility] CERVICAL EPIDURAL STEROID INJECTION N/A 10/05/2018 Surgeon: Tyler Henson MD; Location: [facility] Location CERVICAL EPIDURAL STEROID INJECTION N/A 08/02/2019 Surgeon: Tyler Henson MD; Location: [facility] CERVICAL EPIDURAL STEROID INJECTION N/A 08/23/2019 Surgeon: Tyler Henson MD; Location: [facility] CERVICAL EPIDURAL STEROID INJECTION N/A 01/10/2020 Surgeon: Tyler Henson MD; Location: [facility] CERVICAL EPIDURAL STEROID INJECTION N/A 03/06/2020 Surgeon: Tyler Henson MD; Location: [facility] SECTION EPIDURAL STEROID INJECTION Cervical and Lumbar HEMORRHOIDECTOMY N/A 03/23/2019 Surgeon: Ashley Valdez MD; Location: [facility] LUMBAR EPIDURAL STEROID INJECTION N/A 09/04/2015 Surgeon: Tyler Henson MD; Location: [facility] LUMBAR EPIDURAL STEROID INJECTION N/A 09/11/2015 Surgeon: Tyler Henson MD; Location: [facility] LUMBAR EPIDURAL STEROID INJECTION N/A 09/18/2015 Surgeon: Tyler Henson MD; Location: [facility] LUMBAR EPIDURAL STEROID INJECTION N/A 03/04/2016 Surgeon: Tyler Henson MD; Location: [facility] LUMBAR EPIDURAL STEROID INJECTION N/A 03/11/2016 Surgeon: Tyler Henson MD; Location: [facility] LUMBAR EPIDURAL STEROID INJECTION N/A 03/18/2016 Surgeon: Tyler Hensno MD; Location: [facility] LUMBAR EPIDURAL STEROID INJECTION N/A 11/04/2016 Surgeon: Tyler Henson MD; Location: [facility] LUMBAR EPIDURAL STEROID INJECTION N/A 12/09/2016 Surgeon: Tyler Henson MD; Location: [facility] LUMBAR EPIDURAL STEROID INJECTION N/A 04/06/2018 Surgeon: Tyler Henson MD; Location: [facility] Location LUMBAR EPIDURAL STEROID INJECTION N/A 04/20/2018 Surgeon: Tyler Henson MD; Location: [facility] LUMBAR EPIDURAL STEROID INJECTION N/A 04/27/2018 Surgeon: Tyler Henson MD; Location: [facility] LUMBAR EPIDURAL STEROID INJECTION N/A 04/05/2019 Surgeon: Tyler Henson MD; Location: [facility] LUMBAR EPIDURAL STEROID INJECTION N/A 04/19/2019 Surgeon: Tyler Henson MD; Location: [facility] LUMBAR EPIDURAL STEROID INJECTION N/A 05/03/2019 Surgeon: Tyler Henson MD; Location: [facility] PHLEBECTOMY Right 07/16/2016 Surgeon: Lai Stewart MD; [facility] RADIOFREQUENCY ABLATION PROC 07/16/2016 REMOVAL GALLBLADDER STAB PHLEBOTOMY VEINS-EXTREM 20+ 07/16/2016 URETEROSCOPIC STONE MANIPULATION N/A 09/16/2019 Surgeon: Braeden Lindsay MD; [facility] URETEROSCOPIC STONE MANIPULATION Right 09/23/2019 Surgeon: Braeden Lindsay MD; Location: [facility] VAGINAL HYSTERECTOMY 8 year back VARICOSE VEIN ABLATION Right 07/16/2016 Surgeon: Lai Stewart MD; [facility] VENOGRAM Right 07/16/2016 Surgeon: Lai Stewart MD; [facility] WEDGE RESECTION LUNG LOBECTOMY Left Partial Left Lung removed Family History: Family History Problem Relation Age of Onset Heart Mother mi at age 60 Diabetes Father Social History: Social History Occupational History Not on file Tobacco Use Smoking status: Former Smoker Packs/day: 0.00 Years: 25.00 Pack years: 0.00 Types: Cigarettes Smokeless tobacco: Never Used Tobacco comment: received fact sheets on stopping smoking Substance and Sexual Activity Alcohol use: No Alcohol/week: 0.0 standard drinks Drug use: No Sexual activity: Not on file Medications: Current Outpatient Medications Medication Sig ergocalciferol, vitamin D2, (VITAMIN D ORAL) Take by mouth. ondansetron 4 mg tablet Take 1 tablet by mouth every 8 (eight) hours as needed for Nausea and Vomiting (N/V). furosemide 40 mg tablet Take 40 mg by mouth daily. LEVOTHYROXINE 50 mcg tablet TAKE 1 TABLET BY MOUTH EVERY MORNING. clopidogrel (PLAVIX) 75 mg tablet Take 75 mg by mouth daily. atenolol 100 mg tablet Take 100 mg by mouth daily. HYDROcodone-acetaminophen 10-325 mg tablet Take 1 tablet by mouth as needed. isosorbide mononitrate 30 mg 24 hr tablet Take 30 mg by mouth as needed. aspirin (ASPIRIN LOW DOSE) 81 mg EC tablet Take 1 tablet by mouth daily. atorvastatin 40 mg tablet Take 1 tablet by mouth at bedtime. budesonide-formoterol (SYMBICORT) 160-4.5 mcg/actuation inhaler Inhale 2 Puffs 2 (two) times daily. mometasone (NASONEX) 50 mcg/actuation nasal spray Use 1 [place] in each nostril. esomeprazole (NEXIUM) 40 mg capsule Take 40 mg by mouth daily. PROAIR HFA 90 mcg/actuation inhaler Inhale 2 Puffs every 6 (six) hours as needed for Wheezing orShortness of Breath. nitrofurantoin 50 mg capsule Take 1 capsule by mouth every 6 (six) hours. oxybutynin chloride 5 mg tablet Take 1 tablet by mouth 3 (three) times daily as needed for Bladder spasms. For bladder spasms or stent pain. oxybutynin chloride 5 mg tablet Take 1 tablet by mouth 3 (three) times daily. For bladder spasmsor stent pain. tamsulosin 0.4 mg 24 hr capsule Take 1 capsule by mouth daily. ketorolac 10 mg tablet Take 1 tablet by mouth every 6 (six) hours as needed for Pain (scale 7-10) (ONLY WHEN IN breakthrough PAIN, avoid use if pain tolerable). docusate (COLACE) 100 mg capsule Take 1 capsule by mouth 2 (two) times daily. psyllium-sucrose (METAMUCIL, SUGAR,) powder Take 1 Packet by mouth 3 (three) times daily. cyanocobalamin (VITAMIN B-12) 1,000 mcg/mL injection 1 mL by Intramuscular route once every month. nortriptyline 25 mg capsule Take 1 capsule by mouth at bedtime. VITAMIN D2 50,000 unit capsule Take 50,000 Units by mouth weekly. proMETHazine 12.5 mg tablet Take 1 tablet by mouth every 6 (six) hours as needed for Nausea and Vomiting (N/V). nitroglycerin (NITROSTAT) 0.[address] 0.4 mg under the tongue every 5 (five)minutes as needed for Chest pain. CREON 36,000-114,000- 180,000 unit CpDR Take 2 Tabs by mouth 2 (two) times daily. Allergies to Meds: Penicillins, Reglan [metoclopramide hcl], and Ritalin [methylphenidate] Review of systems: CONSTITUTIONAL: negative; EYES: negative; ENT: Imbalance, dizziness, vertigo, postnasal drip; CARDIOVASCULAR: Chest pain, lightheaded; RESPIRATORY: negative; GASTROINTESTINAL: negative; GENITOURINARY: negative; MUSCULOSKELETAL: negative; SKIN: negative; NEUROLOGICAL: negative; PSYCHIATRIC: negative; ENDOCRINE: negative; HEMATOLOGIC/ LYMPHATIC: negative; ALLERGIC/ IMMUNOLOGIC: Negative. Physical Exam: CONSTITUTIONAL: No acute distress, no hoarseness of voice Vital Signs: BP (!) 138/92 (BP Location: Left arm, Patient Position: Standing, BP CUFF SIZE: Adult Medium) | Pulse 70 | Temp 35.4 C (95.7 F) (Tympanic) | Ht 5' 5" (1.651 m) | Wt 193 lb 6.4 oz (87.7 kg) | BMI 32.18 kg/m EYES: Normal gaze alignment EARS, NOSE, MOUTH, AND THROAT: Otoscopic Examination: RIGHT EAR External canal was normal. There was minimal cerumen. Cerumenectomy was not performed. Tympanic membrane was normal. Middle ear appeared normal. LEFT EAR External canal was normal. There was minimal cerumen. Cerumenectomy was not performed.Left Tympanic membrane with peripheral myringosclerosis. Middle ear appeared normal. No objective tinnitus bilaterally External Ears: unremarkable External Nose: unremarkable Nasal Exam: unremarkable Oral Exam: unremarkable, No e/o posterior pharyngeal cobblestoning/erythema, upper jaw edentulous, some increased secretions in the oropharynx Lips, Teeth, and Gums: edentulous upper Larynx: Not evaluated FACE/HEAD: Atraumatic, No TMJ crepitus/tenderness CARDIOVASCULAR: Extremities were warm. RESPIRATORY: There was normal chest expansion SKIN: Normal NEUROLOGICAL: Cranial nerves II-XII grossly intact. Finger to nose and Repetitive movements Exam: Normal. Upon standing patient feels lightheaded and is therefore unable to complete Fukuda, Romberg orgait tests due to instability. NEUROLOGICAL: There was no spontaneous nystagmus. Blanca-Hallpike: RIGHT: Lightheaded when sitting up.When laying down reports subjective room spinning but no nystagmus. LEFT: Lightheaded when sitting up. When laying down reports subjective room spinning but no nystagmus. Head impulse test: Left: no nystagmus, Right: no nystagmus Head shake test: no nystagmus PSYCHIATRIC: Normal Affect HEMATOLOGICAL/ LYMPHATIC: No cervical lymphadenopathy NECK: No thyromegaly, trachea midline. Orthostatic BP testing negative Medical Decision Making: DATA: Data Reviewed: Medical: PMH as detailed in EMR Radiology: MRI Brain without Contrast 09/24/2016: No acute intracranial abnormality. CT Head Angiogram 06/26/2016: There is calcified atherosclerotic plaque along the cavernous and supraclinoid segments of the bilateral internal carotid arteries, without hemodynamically significant stenosis. The bilateral proximal anterior cerebral arteries, proximal middle cerebral arteries, distal vertebral arteries, and the basilar artery and its distal branches are patent. No aneurysm or vascular malformation identified within the limitations of technique. The dural venous sinuses are patent. CTA Neck Angiogram 06/2016 The aortic arch has a normal distribution. There is scattered focal calcified atherosclerotic plaque along the aortic arch and at the origins of the great vessels, without hemodynamically significant stenosis. The bilateral common an internal carotid arteries are patent. There is no measurable stenosis of the internal carotid arteries by NASCET criteria. The left proximal common carotid artery and the distal cervical internal carotid arteries, just proximal to the skull base, are tortuous. The vertebral arteries are patent from their subclavian artery origins to the vertebrobasilar junction. Additional findings: Atherosclerotic calcification of the partially visualized coronary arteries. Mosaic attenuation within the lung apices, likely representing regions of air trapping. Partially imaged postsurgical changes of left-sided lung lobectomy. Multilevel degenerative changes of the cervical spine. External report from [facility] 1 month ago not obtainable today. Laboratory: None Tests and procedures ordered: Medical: Audiogram, VNG and Rotary chair Radiology: None Laboratory: None Orders Placed This Encounter Procedures CONSULT/REFERRAL AUDIOLOGY DIAGNOSES: ICD-10-CM ICD-9-CM 1. Right-sided vestibular weakness H81.8X1 386.8 2. Dizziness R42 780.4 3. Vertigo R42 780.4 4. Syncope and collapse R55 780.2 Risk: Moderate-Severe PROCEDURE: None Assessment and Plan: Toshia Barone is a 65 year old female with complex medical history and 3 year history of subjective vertigo, constant lightheadedness with intermittent presyncope, and history of syncopal fall. She is undergoing extensive workup for cardiovascular disease and reports she had recent carotid ultrasound which showed 95% stenosis bilaterally. In clinic today does have subjective vertigo with Blanca-Hallpike but no nystagmus on this or other vestibular maneuevers. She does have presyncope and lightheadedness with positional change. She also has right ear episodic fullness and tinnitus. Given her constellation of symptoms and likely multifactorial etiology (vascular / cerebrovascular / vestibular weakness), we will proceed with extensive workup of vestibular components of her symptoms and encouraged continued workup with her cardroom drawing runner for reported carotid stenosis as this very likely is contributing to her symptoms. Her laughing spells with associated lightheadedness and head bobbing may be attribu table to carotid disease or another entity such as narcolepsy. - Will obtain audiogram, VNG and rotary chair testing to evaluate hearing and dizziness - RTC after testing, in approximately 1 month Topher Shelton MD PGY-1, Otolaryngology Head and Neck Surgery documented in this encounter Plan of Treatment Date Type Specialty Care Team Description 05/08/2020 Ancillary Visit Audiology Vestibular, [facility] 05/24/2020 Ancillary Visit Audiology 1, [facility] Sound Suite 05/24/2020 Office Visit Otolaryngology Tang Alvarado MD [address] [place] [address] [phone] Health Maintenance Due Date Last Done Comments [...] of this encounter Implants Implanted Type Area Oiler Bander Device Shelf Model / Identifier Expiration Serial / Date Lot Stent STENT Set Stent Ureteral 6fr Kandis 26cml Cody 07/07/2022 [id number] / Implanted: Qty: 1 on 09/16/2019 by Braeden Hansen MD at [facility] [employer] [id number] / [id number] Stent Ureteral Percuflex Plus 6x26 [employer] # [id number] [[id number]] Right: Cody 07/07/2022 [id number] / Implanted: Qty: 1 on 09/23/2019 by Braeden Hansen MD at [facility] [employer] [id number] documented as of this encounter Results Not on filedocumented in this encounter Visit Diagnoses Diagnosis Right-sided vestibular weakness - Primar y Dizziness Dizziness and giddiness Vertigo Dizziness and giddiness Syncope and collapse documented in this encounter Insurance Payer Benefit Plan / Subscriber ID Effective Dates Phone Addre ss Type Group [facility] [id number] 2011-Present Medicaid COMM PLAN - PLUS MANAGED MEDICAID documented as of this encounter
--- OUTSIDE RECORDS SUMMARY | 2020-05-04 22:16 | XMS REPORT | Summary of Care ---
:1955 Author Organization [facility] Address [address] [place] [address] Care Team Providers Name Role Phone Mateus Miller Primary Care Provider Reason for Referral (Routine) Status Reason Specialty Diagnoses / Referred By Referred To Procedures Contact Contact New Request Audiology Diagnoses Right-sided vestibular weakness Dizziness Tang Alvarado, Procedures CONSULT/REFERRAL AUDIOLOGY [address] [place] [address] [place] [address] Reason for Visit Reason Comments New Evaluation vertigo Encounter Details Date Type Department Care Team Description 04/07/2020 Office Visit [facility] Ear, Nose Tang Alvarado, Ri ght-sided vestibular weakness (Primary Dx); and Throat-League Ci ty Dizziness; [facility] Vert igo; [facility] [address] Syncope and [place] [address] [place], [place] [phone] Allergies Active Allergy Reactions Severity Noted [...] for Chest pain. mometasone (NASONEX) Use 1 [place] in each 0 Active 50 mcg/actuation nostril. 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 Date: 04/07/2020 History: [...] recent ultrasound of the carotids ordered by public relations player and that there is 95% bilateral stenosis. [...] N/A 12/26/2014 Surgeon: Tyler Henson MD; Location: [facility] CERVICAL EPIDURAL STEROID INJECTION N/A 01/02/2015 Surgeon: Tyler Henson MD; Location: [facility] CERVICAL EPIDURAL STEROID INJECTION N/A 09/01/2017 Surgeon: Tyler Henson MD; Location: [facility] Location CERVICAL EPIDURAL STEROID INJECTION N/A 09/08/2017 Surgeon: Tyler Henson MD; Location: [facility] Location CERVICAL EPIDURAL STEROID INJECTION N/A 09/14/2018 Surgeon: Tyler Henson MD; Location: [facility] Location CERVICAL EPIDURAL STEROID INJECTION N/A 09/28/2018 Surgeon: Tyler Henson MD; Location: [facility] Location CERVICAL EPIDURAL STEROID INJECTION N/A 10/05/2018 Surgeon: Tyler Henson MD; Location: [facility] CERVICAL EPIDURAL STEROID INJECTION N/A 08/02/2019 Surgeon: Tyler Henson MD; Location: [facility] CERVICAL EPIDURAL STEROID INJECTION N/A 08/23/2019 Surgeon: Tyler Henson MD; Location: [facility] CERVICAL EPIDURAL STEROID INJECTION N/A 01/10/2020 Surgeon: Tyler Henson MD; Location: [facility] CERVICAL EPIDURAL STEROID INJECTION N/A 03/06/2020 Surgeon: Tyler Henson MD; Location: [facility] SECTION EPIDURAL STEROID INJECTION Cervical and Lumbar HEMORRHOIDECTOMY N/A 03/23/2019 Surgeon: Ashley Valdez MD; Location: [facility] LUMBAR EPIDURAL STEROID INJECTION N/A 09/04/2015 Surgeon: Tyler Henson MD; Location: [facility] Location LUMBAR EPIDURAL STEROID INJECTION N/A 09/11/2015 Surgeon: Tyler Henson MD; Location: [facility] Location LUMBAR EPIDURAL STEROID INJECTION N/A 09/18/2015 Surgeon: Tyler Henson MD; Location: [facility] Location LUMBAR EPIDURAL STEROID INJECTION N/A 03/04/2016 Surgeon: Tyler Henson MD; Location: [facility] Location LUMBAR EPIDURAL STEROID INJECTION N/A 03/11/2016 Surgeon: Tyler Henson MD; Location: [facility] Location LUMBAR EPIDURAL STEROID INJECTION N/A 03/18/2016 Surgeon: Tyler Henson MD; Location: [facility] Location LUMBAR EPIDURAL STEROID INJECTION N/A 11/04/2016 Surgeon: Tyler Henson MD; Location: [facility] Location LUMBAR EPIDURAL STEROID INJECTION N/A 12/09/2016 Surgeon: Tyler Henson MD; Location: [facility] Location LUMBAR EPIDURAL STEROID INJECTION N/A 04/06/2018 Surgeon: Tyler Henson MD; Location: [facility] Location LUMBAR EPIDURAL STEROID INJECTION N/A 04/20/2018 Surgeon: Tyler Henson MD; Location: [facility] Location LUMBAR EPIDURAL STEROID INJECTION N/A 04/27/2018 Surgeon: Tyler Henson MD; Location: [facility] Location LUMBAR EPIDURAL STEROID INJECTION N/A 04/05/2019 Surgeon: Tyler Henson MD; Location: [facility] Location LUMBAR EPIDURAL STEROID INJECTION N/A 04/19/2019 Surgeon: Tyler Henson MD; Location: [facility] Location LUMBAR EPIDURAL STEROID INJECTION N/A 05/03/2019 Surgeon: Tyler Henson MD; Location: [facility] PHLEBECTOMY Right 07/16/2016 Surgeon: Lai Stewart MD; [facility] RADIOFREQUENCY ABLATION PROC 07/16/2016 REMOVAL GALLBLADDER STAB PHLEBOTOMY VEINS-EXTREM 20+ 07/16/2016 URETEROSCOPIC STONE MANIPULATION N/A 09/16/2019 Surgeon: Braeden Lindsay MD; [facility] URETEROSCOPIC STONE MANIPULATION Right 09/23/2019 Surgeon: Braeden Lindsay MD; Location: [facility] VAGINAL HYSTERECTOMY 8 year back VARICOSE VEIN ABLATION Right 07/16/2016 Surgeon: Lai Stewart MD; [facility] VENOGRAM Right 07/16/2016 Surgeon: Lai Stewart MD; Location: [facility] WEDGE RESECTION LUNG LOBECTOMY Left [...] (NASONEX) 50 mcg/actuation nasal spray Use 1 [place] in each nostril. esomeprazole (NEXIUM) 40 mg [...] symptoms and encouraged continued workup with her public relations player for reported carotid stenosis as this very [...] Office Visit Otolaryngology Tang Alvarado MD [address] [facility] [place] [address] [phone] Health Maintenance Due Date Last Done Comments [...] of this encounter Implants Implanted Type Area Printing Table Hand Device Shelf Model / Identifier Expiration Serial / Date Lot Stent STENT Set Stent Ureteral 6fr Kandis 26cml Delaplaine 07/07/2022 [id number] / Implanted: Qty: 1 on 09/16/2019 by Braeden Hansen MD at [facility] Scientific [id number] / [id number] Stent Ureteral Percuflex Plus 6x26 Delaplaine Scientific # [id number] [[id number]] Right: Delaplaine 07/07/2022 [id number] / Implanted: Qty: 1 on 09/23/2019 by Braeden Hansen MD at [facility] Scientific [id number] documented as of this encounter Results Not on filedocumented in this encounter Visit Diagnoses Diagnosis Right-sided vestibular weakness - Primar y Dizziness Dizziness and giddiness Vertigo Dizziness and giddiness Syncope and collapse documented in this encounter Insurance Payer Benefit Plan / Subscriber ID Effective Dates Phone Addre ss Type Group [facility] [id number] 2011-Present Medicaid COMM PLAN - PLUS MANAGED MEDICAID documented as of this encounter
--- OUTSIDE RECORDS SUMMARY | 2020-05-04 22:16 | XMS REPORT ---
:1955 Author Organization [facility] Address [address] [place], 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 41461469 intervertebral disc, lumbosacral Problem Atherosclerosis of I25.10 Active 3345748270427 03 coronary artery of [place] heart Problem Degenerative joint M19.90 Active 114798134 disease Problem Varicose veins I86.8 Active 648335145 Problem Hypertension I10 Active 06266078 Problem Dizziness R42 Active 640194005 Problem Postsurgical N95.8 Active 009238326 menopause Problem History of Z86.73 Active 994141487 transient ischemic attack Problem History of Z86.73 Active 516868186 cerebrovascular accident 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 Problem Vitamin B12 D51.9 Active 27179843 deficiency anemia Problem Simple renal cyst N28.1 Active 00266345 Problem Stress disorder, F43.0 Active 12761636 acute Problem Lung nodule R91.1 Active 020534449 Problem Depression with F41.8 Active 908772007 anxiety Problem Vitamin D E55.9 Active 52968998 deficiency Problem Obstructive sleep G47.33 Active 32795132 apnea Problem Hyperlipidemia, E78.2 Active 790836399 mixed Problem Chronic J44.9 Active 06857821 obstructive pulmonary disease, unspecified COPD type Problem Hypothyroidism, E03.9 Active 55681817 unspecified type Problem Other chronic pain G89.29 Active 71461741 Problem Kidney stones N20.0 Active 92099613 ALLERGIES Allergen (clinical drug Drug/Non Drug Allergy Reaction Allergy Type Onset Date Status ingredient) documented on EMR PCN hives Drug Allergy Active metoclopramide Metoclopramide HCl([facility] anxiety Drug Allergy Active Code:[address]-81) ENCOUNTERS from 1955 to 2020-04-13 Encounter Location Date Provider Diagnosis [facility] [address] [facility] Mar, Tonio Miller Hyp othyroidism, Family Medicine [address] [place], unspec[place]ied type E03.9 [place] [address] ; Depression w ith anxiety F41.8 ; Hyperlipidemia, mixed E78.2 ; Chronic obstructive pul monary disease, unspec ified COPD type J44.9 ; Hypertension I1 0 ; Atherosclerosis of coronary artery of [place] heart I2 5.10 ; Stented coronar y artery Z95.5 ; GERD (gastroesophage al reflux disease) K21.9 ; Low back pain M54.5 ; Other chronic pain G89.29 ; Cervic algia M54.2 ; Fatigue , unspecified typ e R53.83 ; Multip le joint pain M25. 50 ; Elevated erythr ocyte sedimentation r ate R70.0 ; Vitamin D deficiency E55. 9 ; Vitamin B12 def iciency E53.8 ; Non-com pliant behavior R46.89 ; Noncompliance w/medication tr eatment due to intermit use of medication Z91. 14 and Prediabetes R73 .03 IMMUNIZATIONS Vaccine Route Administration Date Status Vitamin B12 (Cyanocobalamin) IM Intramuscular Apr 13, 2020 Ad ministered Vitamin B12 (Cyanocobalamin) IM Intramuscular Mar 30, [...] History Observation Description Sex Assigned At Unknown PHQ9 Question Answer Notes Little interest or pleasure in doing things More than half t he days Feeling down, depressed, or hopeless More than half the days Trouble falling or staying asleep or sleeping too much More than half the days Feeling tired or having little energy More than half the day s Poor appetite or overeating More than half the days Feeling bad about yourself, or that you are a failure, Sever al days or have let yourself or your family down Trouble concentrating on things, such as reading the Not at all newspaper or watching television Moving or speaking so slowly that other people could Not at all have noticed; or the opposite, being so fidgety or restless that you have been moving around a lot more than usual Total Score 11 Interpretation Moderate Depression Thoughts that you would be better off or of Not at all hurting yourself in some way Alcohol Screen Question Answer Notes Did you have a drink containing alcohol in the past year? No Points 0 Interpretation Negative Tobacco Use/Smoking Question Answer Notes Are you a never smoker REASON FOR REFERRAL No Information VITAL SIGNS Height 65 in Mar, Weight 193.6 lbs Mar, Temperature 96.9 degrees Fahrenheit Mar, BMI 32.21 kg/m2 Mar, Oximetry 97 % Mar, Respiratory Rate 16 /min Mar, Blood pressure systolic 135 mm Hg Mar, Blood pressure diastolic 65 mm Hg Mar, MEDICATIONS Medication SIG (Take, Route, Start Date End Date Status Frequency, Duration) Linzess 145 mcg 1 capsule Orally Once a day Active Aspirin Low Dose 81 MG TAKE 1 TABLET BY MOUTH Active EVERY DAY for 30 Levothyroxine Sodium 50 MCG TAKE 1 TABLET BY MOUTH Active EVERY DAY IN THE MORNING for 30 ProAir HFA 108 (90 Base) 2 puffs as needed Active MCG/ACT Inhalation every 6 hrs Zofran 4 MG 1 tablet as needed Orally Ac tive Every 8 hours for 5 days Furosemide 20 MG 1 tablet Orally Once a day Active for 30 days Aspirin 81 MG TAKE 1 TABLET BY MOUTH Acti ve EVERY DAY for 30 Simvastatin 40 MG 1 tablet in the evening Active Orally Once a day for 30 day(s) Synthroid 25 MCG 1 tablet on an empty Act yovany stomach in the morning Orally Once a day for 90 days Hydrocodone-Acetaminophen 5-325 1 tablet Orally Once a day Active MG Trelegy Ellipta 100-62.5-25 1 puff Inhalation Once a Active MCG/INH day Nexium 40 MG TAKE ONE CAPSULE BY MOUTH Ac tive EVERY DAY Aspirin 81 MG TAKE 1 TABLET BY MOUTH Acti ve EVERY DAY Venlafaxine HCl ER 150 MG take one capsule by mouth Active every day Orally Once a day for 90 days Clopidogrel Bisulfate 75 MG 1 tablet Orally Once a day Active Gabapentin 100 MG TAKE 1 CAPSULE BY MOUTH Active EVERY DAY Oral for 30 Hydrocodone-Acetaminophen 5-325 1 tablet as needed Orally Active MG every 6 hrs Vitamin D3 48993 UNIT 1 capsule Orally Once a Active week x 12 weeks for 30 day(s) Atenolol 100 MG TAKE 1 TABLET BY MOUTH Ac tive EVERY DAY PO Once daily for 30 days Spironolactone 25 MG 1 tablet Orally Once a day Active for 90 PROCEDURES No Information RESULTS No Results REASON FOR VISIT 2 wk f/u, feeling depressed, + B12 inj. PER [facility] Rep PT needs A1C check and referral for diabetic eye exam. In office. MEDICAL (GENERAL) HISTORY Type Description Date Medical [...] Information ASSESSMENTS Encounter Date Diagnosis Notes Mar, GERD (gastroesophageal reflux disease) ( ICD-10 - K21.9) Mar, Prediabetes (ICD-10 - R73.03) Mar, Stented coronary artery (ICD-10 - Z95.5) Mar, Noncompliance w/medication treatment due to intermit use of medication (ICD-10 - Z91.14) Mar, Other chronic pain (ICD-10 - G89.29) Mar, Low back pain (ICD-10 - M54.5) Mar, Chronic obstructive pulmonary disease, u nspecified COPD type (ICD-10 - J44.9) Mar, Vitamin D deficiency (ICD-10 - E55.9) Mar, Hyperlipidemia, mixed (ICD-10 - E78.2) Mar, Elevated erythrocyte sedimentation rate (ICD-10 - R70.0) Mar, Atherosclerosis of coronary artery of na tive heart (ICD-10 - I25.10) Mar, Non-compliant behavior (ICD-10 - R46.89) Mar, Hypertension (ICD-10 - I10) Mar, Vitamin B12 deficiency (ICD-10 - E53.8) Mar, Hypothyroidism, unspecified type (ICD-10 - E03.9) Mar, Fatigue, unspecified type (ICD-10 - R53. 83) Mar, Cervicalgia (ICD-10 - M54.2) Mar, Depression with anxiety (ICD-10 - F41.8) Mar, Multiple joint pain (ICD-10 - M25.50) PLAN OF TREATMENT Medication Medication Name Sig Start Date Stop Date Simvastatin 40 MG 1 tablet in the evening Orally Once a day for 30 day(s) Vitamin D3 29359 UNIT 1 capsule Orally Once a week x 12 weeks for 30 day(s) Furosemide 20 MG 1 tablet Orally Once a day for 30 days Venlafaxine HCl ER 150 MG take one capsule by mouth every day Orally Once a day for 90 days Synthroid 25 MCG 1 tablet on an empty stomach in the morning Orally Once a day for 90 days Trelegy Ellipta 100-62.5-25 1 puff Inhalation Once a day MCG/INH Nexium 40 MG TAKE ONE CAPSULE BY MOUTH EVERY DAY Atenolol 100 MG TAKE 1 TABLET BY MOUTH EVERY DAY PO Once daily for 30 days Aspirin 81 MG TAKE 1 TABLET BY MOUTH EVERY DAY ProAir HFA 108 (90 Base) MCG/ACT 2 puffs as needed Inhalation every 6 hrs Clopidogrel Bisulfate 75 MG 1 tablet Orally Once a day Treatment Notes Assessment Notes Clinical Notes Hypothyroidism, unspecified type TSH: LOW. DECREASED Synthor id to 25 mcg. GOAL TSH 1-3. Education given. Prediabetes Diet-Controlled. Education given. Depression with anxiety INCREASED TO 150 mg. Denies SI/Hi. Seeing therapist. Education given. , -- Depression Education: Depression [...] as a psychiatrist, psychologist, nurse or social services designee) may be necessary to treat depression. Both [...] of coronary artery Managed by Cardiology. of [place] heart GERD (gastroesophageal reflux Education given. , We have disease) discussed the pathophysiology of reflux disease and we discussed lifestyle modifications to avoid reflux that include elevation head of the bed, avoid alcohol, avoid caffeine, avoid maintenance, avoid tight clothing, avoid eating within 3-4 hours before bedtime, and avoiding smoking. Vitamin B12 deficiency Discussed DDx. Education given. Discussed IM vs PO. Patient has taken PO in the past with minimal change. If improvement noted will schedule injection every 2 weeks. If not will transition to PO. Discussed side effect panel. Encouraged to make dietary and lifestyle changes. Vitamin D deficiency LOW. Start 24018 iu/weekly x 12 weeks then transition to 7271-2114 IU Daily. Side effec tidscussed. Discussed on causes of Vit D Def. Increase sunlight + Hydration + Exercise + Food High in Vit D and OTC supplements. Low back pain PNM: on Hydrocodone. Multiple joint pain Discussed differential diagnosis extensively patient. Education given. REFERRAL TO RHEUM Elevated erythrocyte sedimentation . Discussed differential diagnosis rate with patient. Education given. Will repeat. REFERRAL TO RHEUM. ENCOURAGED TO MAKE APPT. Treatment Notes Test Name Order Date HEMOGLOBIN A1C 2020-04-13 Next Appt Details 2 Weeks + Vit B12 Injection Reason: Provider Name:Tonio Miller, 2020-04-27 0 3:20:00 PM, [address], [address], [place], [address], Provider Name:Tonio Miller, 2020-05-09 1 0:45:00 AM, [address], [address], [place], [address], Provider Name:Tonio Miller 2020-05-16 0 3:00:00 PM, [address], [address], [place], [address], Insurance Providers Payer Name Payer Payer Insured Patient Coverage Coverage End Address Phone Name Relationship to Start Date Yunior e Insured [phone] IsaacNicole hicks self [address] [place] [phone] [facility] [address] a A [facility] [id number]
--- OUTSIDE RECORDS SUMMARY | 2020-05-04 22:17 | XMS REPORT ---
:1955 Author Organization [facility] Address [address] [place], [address] [place] [address] Care Team Providers Name Role Phone Miller Unavailable [phone] PROBLEMS Type Condition ICD9-CM [id number] Onset Condition SNOMED Code Notes Code Code Dates Status Problem Peripheral G62.9 Active 999542099 neuropathy Problem Chronic K86.1 Active 630862403 pancreatitis Problem Fatty liver K76.0 Active 463706582 Problem Insomnia G47.00 Active 145500465 Problem Stented coronary Z95.5 Active 587887051 artery Problem GERD K21.9 Active 662724460 (gastroesophageal reflux disease) Problem Degeneration, M51.37 Active 34249258 intervertebral disc, lumbosacral Problem Atherosclerosis of I25.10 Active 2791561903849 03 coronary artery of [place] heart Problem Degenerative joint M19.90 Active 240930018 disease Problem Varicose veins I86.8 Active 189256066 Problem Hypertension I10 Active 88526908 Problem Dizziness R42 Active 867508246 Problem Postsurgical N95.8 Active 537498571 menopause Problem History of Z86.73 Active 898292633 transient ischemic attack Problem History of Z86.73 Active 885557477 cerebrovascular accident 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 254700395 hypofunction Problem Vitamin B12 D51.9 Active 22740506 deficiency anemia Problem Simple renal cyst N28.1 Active 53225190 Problem Stress disorder, F43.0 Active 97899180 acute Problem Lung nodule R91.1 Active 506023781 Problem Depression with F41.8 Active 800574954 anxiety Problem Vitamin D E55.9 Active 59748035 deficiency Problem Obstructive sleep G47.33 Active 39037240 apnea Problem Hyperlipidemia, E78.2 Active 234579253 mixed Problem Chronic J44.9 Active 69701070 obstructive pulmonary disease, unspecified COPD type Problem Hypothyroidism, E03.9 Active 37879258 unspecified type Problem Other chronic pain G89.29 Active 17524668 Problem Kidney stones N20.0 Active 44551291 ALLERGIES Allergen (clinical drug Drug/Non Drug Allergy Reaction Allergy Type Onset Date Status ingredient) documented on EMR PCN hives Drug Allergy Active metoclopramide Metoclopramide HCl([facility] anxiety Drug Allergy Active Code:[address]-34) ENCOUNTERS from 1955 to 2020-04-26 Encounter Location Date Provider Diagnosis [facility] [address] [address], [place] [address] IMMUNIZATIONS Vaccine Route Administration Date Status Vitamin [...] November 04, 2017 Adminis tered SOCIAL HISTORY Sex Assigned At : Social History Observation [...] past year? No Points 0 Interpretation Negative REASON FOR REFERRAL No Information VITAL SIGNS No information MEDICATIONS Medication SIG (Take, Route, Start Date End Date Status Frequency, Duration) Clopidogrel Bisulfate 75 MG 1 tablet Orally Once a day Active Spironolactone 25 MG 1 tablet Orally Once a day Active for 90 ProAir HFA 108 (90 Base) 2 puffs as needed Active MCG/ACT Inhalation every 6 hrs Vitamin D3 05535 UNIT 1 capsule Orally Once a Active week x 12 weeks for 30 day(s) Zofran 4 MG 1 tablet as needed Orally Ac tive Every 8 hours for 5 days Hydrocodone-Acetaminophen 5-325 1 tablet Orally Once a day Active MG Levothyroxine Sodium 50 MCG TAKE 1 TABLET BY MOUTH Active EVERY DAY IN THE MORNING for 30 Linzess 145 mcg 1 capsule Orally Once a day Active Aspirin 81 MG TAKE 1 TABLET BY MOUTH Acti ve EVERY DAY Furosemide 20 MG 1 tablet Orally Once a day Active for 30 days Venlafaxine HCl ER 150 MG take one capsule by mouth Active every day Orally Once a day for 90 days Simvastatin 40 MG 1 tablet in [...] needed Orally Active MG every 6 hrs Nexium 40 MG TAKE ONE CAPSULE BY MOUTH Ac tive EVERY DAY Aspirin Low Dose 81 MG TAKE 1 TABLET BY MOUTH Active EVERY DAY for 30 Atenolol 100 MG TAKE 1 TABLET BY MOUTH Ac tive EVERY DAY PO Once daily for 30 days Aspirin 81 MG TAKE 1 TABLET BY MOUTH Acti ve EVERY DAY for 30 Trelegy Ellipta 100-62.5-25 1 puff Inhalation Once a Active MCG/INH day PROCEDURES No Information RESULTS No Results REASON FOR VISIT abscess on buttock? MEDICAL (GENERAL) HISTORY Type Description Date Medical [...] Information ASSESSMENTS No Information PLAN OF TREATMENT Next Appt Details Provider Name:Tonio Miller 2020-04-27 0 3:20:00 PM, [address], [facility] [address], [place], [address], Provider Name:Tonio Miller 2020-05-09 1 0:45:00 AM, [address], [facility] [address], [place], [address], Provider Name:Tonio Miller 2020-05-16 0 3:00:00 PM, [address], [facility] [address], [place], [address], Insurance Providers Payer Name Payer Payer Insured Patient Coverage Coverage End Address Phone Name Relationship to Start Date Yunior e Insured [place] [phone] IsaacNicole hicks self [address] [place] [phone] [address]
--- OUTSIDE RECORDS SUMMARY | 2020-05-04 22:17 | XMS REPORT ---
:1955 Author Organization [facility] Address [address] [place], [address] [place] [address] Care Team Providers Name Role Phone Miller Unavailable [phone] PROBLEMS Type Condition ICD9-CM HVV95-VF Onset Condition SNOMED Code Notes Code Code Dates Status Problem Peripheral G62.9 Active 364188646 neuropathy Problem Chronic K86.1 Active 537001633 pancreatitis Problem Fatty liver K76.0 Active 660007065 Problem Insomnia G47.00 Active 958895563 Problem Stented coronary Z95.5 Active 966591906 artery Problem GERD K21.9 Active 109616781 (gastroesophageal reflux disease) Problem Degeneration, M51.37 Active 92476623 intervertebral disc, lumbosacral Problem Atherosclerosis of I25.10 Active 9654075851940 03 coronary artery of [place] Problem Degenerative joint M19.90 Active 784888610 disease Problem Varicose veins I86.8 Active 216830809 Problem Hypertension I10 Active 41544322 Problem Dizziness R42 Active 005187297 Problem Postsurgical N95.8 Active 338062044 menopause Problem History of Z86.73 Active 668502979 transient ischemic attack Problem History of Z86.73 Active 569725726 cerebrovascular accident 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 Problem Vitamin B12 D51.9 Active 16456067 deficiency anemia Problem Simple renal cyst N28.1 Active 99824147 Problem Stress disorder, F43.0 Active 65140773 acute Problem Lung nodule R91.1 Active 673142070 Problem Depression with F41.8 Active 613936908 anxiety Problem Vitamin D E55.9 Active 81544781 deficiency Problem Obstructive sleep G47.33 Active 97319450 apnea Problem Hyperlipidemia, E78.2 Active 237090735 mixed Problem Chronic J44.9 Active 48522783 obstructive pulmonary disease, unspecified COPD type Problem Hypothyroidism, E03.9 Active 81002172 unspecified type Problem Other chronic pain G89.29 Active 30489174 Problem Kidney stones N20.0 Active 25279974 ALLERGIES Allergen (clinical drug Drug/Non Drug Allergy Reaction Allergy Type Onset Date Status ingredient) documented on EMR PCN hives Drug Allergy Active metoclopramide Metoclopramide HCl([facility] anxiety Drug Allergy Active Code:[address]-59) ENCOUNTERS from 1955 to 2020-04-27 Encounter Location Date Provider Diagnosis [place] [address] Eleazar GUTIERREZ Apr, Tonio Miller Abscess, gluteal, left Drive [address], [address] ; [place] [address] Hypothyroidism , unspecified typ e E03.9 ; Depression wi th anxiety F41.8 ; Hyperlipidemia, mixed E78.2 ; Chronic obstructive pul monary disease, unspec ified COPD type J44.9 ; Hypertension I1 0 ; Atherosclerosis of coronary artery of [place] I2 5.10 ; Stented coronar y artery Z95.5 ; GERD (gastroesophage al reflux disease) K21.9 ; Low back pain M 54.5 ; Other chronic p ain G89.29 ; Cervic algia M54.2 ; Fatigue , unspecified typ e R53.83 ; Multiple join t pain M25.50 ; Elevat ed erythrocyte sedimentation r ate R70.0 ; Vitamin D [...] IM Intramuscular May 17, 2019 Adminis tered Vitamin B12 (Cyanocobalamin) IM Intramuscular Apr 27, 2020 Ad ministered Kenalog (Triamcinolone) Unknown May 27, 2018 Pending Kenalog (Triamcinolone) IM Intramuscular Mar 25, 2018 Adminis tered Kenalog (Triamcinolone) IM Intramuscular November 04, 2017 Adminis tered SOCIAL HISTORY Sex Assigned At : Social History Observation Description Sex Assigned At Unknown PHQ9 Question Answer Notes Little interest or pleasure in doing things Several days Feeling down, depressed, or hopeless Several days Trouble falling or staying asleep or sleeping too much Sever al days Feeling tired or having little energy Several days Poor appetite or overeating Several days Feeling bad about yourself, or that you are a failure, or burkett ve Several days let yourself or your family down Trouble concentrating on things, such as reading the newspap er Not at all or watching television Moving or speaking so slowly that other people could have No t at all noticed; or the opposite, being so fidgety or restless that you have been moving around a lot more than usual Total Score 6 Interpretation Mild Depression Thoughts that you would be better off or of hurting Not at all yourself in some way Alcohol Screen Question Answer Notes Did you have a drink containing alcohol in the past year? No Points 0 Interpretation Negative REASON FOR REFERRAL No Information VITAL SIGNS Height 65 in Apr, Weight 190.0 lbs Apr, Temperature 97.0 degrees Fahrenheit Apr, BMI 31.61 kg/m2 Apr, Oximetry 97 % Apr, Respiratory Rate 16 /min Apr, Blood pressure systolic 135 mm Hg Apr, Blood pressure diastolic 73 mm Hg Apr, MEDICATIONS Medication SIG (Take, Route, Start Date End Date Status Frequency, Duration) Clopidogrel Bisulfate 75 MG 1 tablet Orally Once a Active day ProAir HFA 108 (90 Base) 2 puffs as needed Active MCG/ACT Inhalation every 6 hrs Trelegy Ellipta 100-62.5-25 1 puff Inhalation Once a Active MCG/INH day Gabapentin 100 MG TAKE 1 CAPSULE BY MOUTH Active EVERY DAY Oral for 30 Aspirin Low Dose 81 MG TAKE 1 TABLET BY MOUTH Active EVERY DAY for 30 Sulfamethoxazole-Trimethopri 1 tablet Orally Twice a Apr, 1 Apr, Active m 800-160 MG day for 10 day(s) Nexium 40 MG TAKE ONE CAPSULE BY Active MOUTH EVERY DAY Simvastatin 40 MG 1 tablet in the evening Active Orally Once a day for 30 day(s) Vitamin D3 74965 UNIT 1 capsule Orally Once a Active week x 12 weeks for 30 day(s) Atenolol 100 MG TAKE 1 TABLET BY MOUTH Ac tive EVERY DAY PO Once daily for 30 days Zofran 4 MG 1 tablet as needed Active Orally Every 8 hours for 5 days Hydrocodone-Acetaminophen 1 tablet Orally Once a Active 5-325 MG day Aspirin 81 MG TAKE 1 TABLET BY MOUTH Acti ve EVERY DAY for 30 Venlafaxine HCl ER 150 MG take one capsule by Active mouth every day Orally Once a day for 90 days Linzess 145 mcg 1 capsule Orally Once a A ctive day Hydrocodone-Acetaminophen 1 tablet as needed Active 5-325 MG Orally every 6 hrs Spironolactone 25 MG 1 tablet Orally Once a Active day for 90 Aspirin 81 MG TAKE 1 TABLET BY MOUTH Acti ve EVERY DAY Furosemide 20 MG 1 tablet Orally Once a A ctive day for 30 days Levothyroxine Sodium 50 MCG TAKE 1 TABLET BY MOUTH Active EVERY DAY IN THE MORNING for 30 Synthroid 25 MCG 1 tablet on an empty Act yovany stomach in the morning Orally Once a day for 90 days PROCEDURES No Information RESULTS No Results REASON FOR VISIT 2 wk f/u + B12 inj. In office. MEDICAL (GENERAL) HISTORY Type Description [...] No Information ASSESSMENTS Encounter Date Diagnosis Notes Apr, Stented coronary artery (ICD-10 - Z95.5) Apr, Noncompliance w/medication treatment due to intermit use of medication (ICD-10 - Z91.14) Apr, Atherosclerosis of coronary artery of na tive heart (ICD-10 - I25.10) Apr, Non-compliant behavior (ICD-10 - R46.89) Apr, Low back pain (ICD-10 - M54.5) Apr, GERD (gastroesophageal reflux disease) ( ICD-10 - K21.9) Apr, Prediabetes (ICD-10 - R73.03) Apr, Hyperlipidemia, mixed (ICD-10 - E78.2) Apr, Elevated erythrocyte sedimentation rate (ICD-10 - R70.0) Apr, Depression with anxiety (ICD-10 - F41.8) Apr, Multiple joint pain (ICD-10 - M25.50) Apr, Hypertension (ICD-10 - I10) Apr, Vitamin B12 deficiency (ICD-10 - E53.8) Apr, Chronic obstructive pulmonary disease, u nspecified COPD type (ICD-10 - J44.9) Apr, Vitamin D deficiency (ICD-10 - E55.9) Apr, Abscess, gluteal, left (ICD-10 - L02.31) Apr, Cervicalgia (ICD-10 - M54.2) Apr, Other chronic pain (ICD-10 - G89.29) Apr, Hypothyroidism, unspecified type (ICD-10 - E03.9) Apr, Fatigue, unspecified type (ICD-10 - R53. 83) PLAN OF TREATMENT Medication Medication Name Sig Start Date Stop Date Atenolol 100 MG TAKE 1 TABLET BY MOUTH EVERY DAY PO Once daily for 30 days Furosemide 20 MG 1 tablet Orally Once a day for 30 days Vitamin D3 93718 UNIT 1 capsule Orally Once a week x 12 weeks for 30 day(s) Nexium 40 MG TAKE ONE CAPSULE BY MOUTH EVERY DAY Simvastatin 40 MG 1 tablet in the evening Orally Once a day for 30 day(s) Aspirin 81 MG TAKE 1 TABLET BY MOUTH EVERY DAY Trelegy Ellipta 100-62.5-25 1 puff Inhalation Once a day MCG/INH Clopidogrel Bisulfate 75 MG 1 tablet Orally Once a day Venlafaxine HCl ER 150 MG take one capsule by mouth every day Orally Once a day for 90 days Sulfamethoxazole-Trimethoprim 1 tablet Orally Twice a day AprApr, 800-160 MG for 10 day(s) ProAir HFA 108 (90 Base) 2 puffs as needed Inhalation MCG/ACT every 6 hrs Synthroid 25 MCG 1 tablet on an empty stomach in the morning Orally Once a day for 90 days Treatment Notes Assessment Notes Clinical Notes Prediabetes Diet-Controlled. Education given. Abscess, gluteal, left Discussed DDx. Education given. Will treat empirically with Bactrim for 10 days.. Side effect discussed. Discussed KENNETH I&D, too early at this time. Proper care discussed. Will monitor closely. Close follow-up. Vitamin B12 deficiency Discussed DDx. Education given. Discussed IM vs PO. Patient has taken PO in the past with minimal change. If improvement noted will schedule injection every 2 weeks. If not will transition to PO. Discussed side effect panel. Encouraged to make dietary and lifestyle changes. Noticed significant improvement with time. Hypothyroidism, unspecified type TSH: LOW. DECREASED Synthor id to 25 mcg. GOAL TSH 1-3. Education given. Depression with anxiety INCREASED TO [...] as a psychiatrist, psychologist, nurse or social work professor) may be necessary to treat depression. Both [...] of coronary artery Managed by Cardiology. of [place] Vitamin D deficiency LOW. Start 85880 iu/weekly x 12 weeks then transition to 1131-3856 IU Daily. Side effec tidscussed. Discussed on causes of Vit D Def. Increase sunlight + Hydration + Exercise + Food High in Vit D and OTC supplements. Elevated erythrocyte sedimentation . Discussed differential diagnosis rate with patient. Education given. Will repeat. REFERRAL TO [facility]. ENCOURAGED TO MAKE APPT. GERD (gastroesophageal reflux Education given. , We [...] extensively patient. Education given. REFERRAL TO RHEUM Next Appt Details as scheduled Reason: Provider Name:Tonio Paul, 2020-05-09 1 0:45:00 AM, [address], [address], [place], [address], Provider Name:Tonio Miller, 2020-05-16 0 3:00:00 PM, [address], [place], [address], Insurance Providers Payer Name Payer Payer Insured Patient Coverage Coverage End Address Phone Name Relationship to Start Date Yunior e Insured [phone] Nicole Barone self [address] [place] [id number] [facility] [address] [facility] [id number]
[2020-05-04] MEDS ORDERED: MORPHINE 2 MG/ML SYR ONE (22:44)
[2020-05-04] MEDS ORDERED: ONDANSETRON 4 MG/2 ML VIAL ONE (22:44)
[2020-05-04] MEDS ORDERED: TETANUS & DIPHTHERIA TOX,ADULT 0.5 ML VIAL ONE (22:45)
[2020-05-04 22:58] LABS: Absolute Lymphocytes (CBC) 3.2 K/uL (0.7-4.9); Basophils % 0.5 % (0-1.3); Lymphocytes % 50.7 % (15.3-44.8); RBC Red Blood Cell Count 4.31 M/uL (3.86-4.86)
[2020-05-04 23:08] LABS: Potassium 3.7 mmol/L (3.5-5.1)
--- NOTE | 2020-05-05 00:26 | ER ---
Nurse's Notes [facility] [place], [place] Name: Toshia Barone Age: 65 yrs Sex: Female : 1955 Arrival Date: 05/04/2020 Time: 22:11 Bed 6 Private MD: Diagnosis: Fall due to bumping against object;Pain in right lower leg-contusion, abrasion;Low back pain-10cm x 17cm x 5 cm expanding hematoma;Urinary tract infection, site not specified Presentation: 05/04 22:20 Chief complaint: Patient states: I fell down about an hour ago, hit my right leg and my rr5 back right side. denies LOC, on blood thinner. 22:20 Coronavirus screen: Client denies travel out of the [place] in the last 14 days. At this rr5 time, the client does not indicate any symptoms associated with coronavirus-19. Ebola Screen: Patient negative for fever greater than or equal to 101.5 degrees Fahrenheit, and additional compatible Ebola Virus Disease symptoms Patient denies exposure to infectious person. Patient denies travel to an Ebola-affected area in the 21 days before illness onset. Initial Sepsis Screen: Does the patient meet any 2 criteria? No. Patient's initial sepsis screen is negative. Does the patient have a suspected source of infection? No. Patient's initial sepsis screen is negative. Risk Assessment: Do you want to hurt yourself or someone else? Patient reports no desire to harm self or others. Onset of symptoms was May 04, 2020. 22:20 Method Of Arrival: Wheelchair rr5 22:20 Acuity: SHARON 2 rr5 22:20 Care prior to arrival: None. Mechanism of Injury: Fall from standing position. Trauma rr5 event details: Injury occurred in the [facility], Injury occurred: Injury occurred: May 04, 2020 Injury occurred at: 21:00. Trauma Activation: Alert Physician: ED Physician; Name: tessa; Notified At: 22:20; Arrived At: 22:22 Physician: General Surgeon; Name: ; Notified At: 22:20; Arrived At: Physician: Radiology; Name: samuel/tato/jade; Notified At: 22:20; Arrived At: 22:25 Physician: Respiratory; Name: ; Notified At: 22:20; Arrived At: Physician: Lab; Name: ; Notified At: 22:20; Arrived At: Historical: - Allergies: 22:20 methylphenidate HCl; rr5 22:20 PENICILLINS; rr5 22:20 Reglan; rr5 22:20 Ritalin; rr5 - Home Meds: 22:20 aspirin 81 mg Oral TbEC 1 tab once daily [Active]; atenolol 100 mg Oral tab 1 tab once rr5 daily [Active]; levothyroxine 50 mcg tab 1 tab once daily [Active]; gabapentin 300 mg Oral cap 1 cap 3 times per day [Active]; isosorbide mononitrate 30 mg Oral Tb24 1 tab once daily [Active]; Eliquis 2.5 mg Oral tab 1 tab 2 times per day [Active]; Nexium 40 mg Oral cpDR 1 cap once daily [Active]; atorvastatin 40 mg Oral tab 1 tab nightly [Active]; ProAir HFA 90 mcg/actuation inhalation HFAA 1 puff every 4 hours [Active]; promethazine 12.5 mg Oral tab 1 tab as needed [Active]; spironolactone 25 mg Oral tab 1 tab 2 times per day [Active]; Stool Softener 100 mg Oral cap 1 cap once daily [Active]; tramadol 50 mg Oral tab 2 tabs every 6 hours [Active]; Vitamin D Oral 67448 unit Q WEEK [Active]; - PMHx: 22:20 B12 deficiency; CHF; COPD; CVA; DVT; fatty liver; GERD; Hyperlipidemia; Hypertension; rr5 Hypothyroidism; Kidney stones; Myocardial infarction; Pancreatitis; TIA; - PSHx: 22:20 Hysterectomy; Lobectomy; ; rr5 - Immunization history:: Adult Immunizations up to date, Last tetanus immunization: > 5 years. - Social history:: Smoking status: unknown. - Family history:: not pertinent. Screenin:50 Abuse screen: Denies threats or abuse. Denies injuries from another. Nutritional rr5 screening: No deficits noted. Tuberculosis screening: No symptoms or risk factors identified. Fall Risk Fall in past 12 months (25 points). IV access (20 points). Total Davidson Fall Scale indicates High Risk Score (45 or more points). Fall prevention measures have been instituted. Side Rails Up X 2 Frequent Obs/Assessments Occuring As available patient and family educated on Fall Prevention Program and Strategies. Primary Survey: 22:20 NO uncontrolled hemorrhage observed. A: The patient is alert. Airway: patent, No rr5 supplemental oxygen in use on arrival. Oral cavity: clear, gag reflex present, Trachea midline. Breathing/Chest: Respiratory pattern: regular, Respiratory effort: spontaneous, unlabored, Breath sounds: clear, bilaterally. Chest inspection: symmetrical rise and fall of the chest. Circulation: Pulses: palpable right radial artery, right dorsalis pedis artery, left radial artery and left dorsalis pedis artery. Skin color: pink, Skin temperature: warm, dry. Disability Alert. Exposure/Environment: There is no evidence of uncontrolled external bleeding. Obvious injury(ies) are noted at this time: bruise on the right lower back. bruise, swollen, abrasion on the right lower leg noted A warming method has been applied: A warm blanket has been provided to the patient. 23:30 Reassessment Airway Airway Patent Oral cavity Clear +Gag reflex Breathing/Chest rr5 Respiratory pattern Regular Respiratory effort Spontaneous Unlabored Breath sounds Clear Chest inspection Symmetrical Circulation Pulses Palpable Disability Alert. Secondary Survey: 22:30 HEENT: No deficits noted. Musculoskeletal: Circulation, motion, and sensation intact. rr5 Capillary refill < 3 seconds, Swelling present in lateral aspect of right calf. Assessment: 22:20 General: Appears in no apparent distress. uncomfortable, Behavior is calm, cooperative, rr5 appropriate for age. 22:20 Pain: Complains of pain in back and right leg Pain currently is 8 out of 10 on a pain rr5 scale. Quality of pain is described as aching, Pain began suddenly, Is intermittent. Neuro: Level of Consciousness is awake, alert, obeys commands, Oriented to person, place, time. Cardiovascular: Capillary refill < 3 seconds Patient's skin is warm and dry. Respiratory: Airway is patent Respiratory effort is even, unlabored, Respiratory pattern is regular, symmetrical. GI: No signs and/or symptoms were reported involving the gastrointestinal system. : No signs and/or symptoms were reported regarding the genitourinary system. EENT: No signs and/or symptoms were reported regarding the EENT system. Derm: Skin temperature is warm Wound noted lateral aspect of right calf Wound is abrasion Bruising that is dark purple, on back and right leg. Musculoskeletal: Swelling present in lateral aspect of right calf. 23:30 Reassessment: Patient appears in no apparent distress at this time. Patient is alert, rr5 oriented x 3, equal unlabored respirations, skin warm/dry/pink. awaiting for results. 05/05 00:15 Reassessment: Patient appears in no apparent distress at this time. Patient is alert, rr5 oriented x 3, equal unlabored respirations, skin warm/dry/pink. CT result read by ED provider decided for admission. 07:00 Reassessment: RECD REPORT FROM JANET COBB. 65YO HF S/P FALL. PT ON ER HOLD FOR R FLANK bp HEMATOMA, ADMIT TO DR MARAVILLA. Vital Signs: 05/04 22:20 BP 171 / 86; Pulse 68; Resp 17; Temp 97.8; Pulse Ox 99% ; Weight 84.37 kg; Height 5 ft. rr5 5 in. (165.10 cm); Pain 8/10; 23:24 BP 159 / 90; Pulse 70; Resp 16; Pulse Ox 99% ; rr5 05/05 00:27 BP 124 / 71; Pulse 67; Resp 16; Pulse Ox 99% ; rr5 01:36 BP 115 / 72; Pulse 93; Resp 17; Pulse Ox 99% ; rr5 05/04 22:20 Body Mass Index 30.95 (84.37 kg, 165.10 cm) rr5 Clinton Coma Score: 05/04 22:20 Eye Response: spontaneous(4). Verbal Response: oriented(5). Motor Response: obeys rr5 commands(6). Total: 15. Trauma Score (Adult): 22:20 Eye Response: spontaneous(1); Verbal Response: oriented(1); Motor Response: obeys rr5 commands(2); Systolic BP: > 89 mm Hg(4); Respiratory Rate: 10 to 29 per min(4); Clinton Score: 15; Trauma Score: 12 ED Course: 22:11 Patient arrived in ED. cl3 22:11 Janet Meraz, REZA is Primary Nurse. rr5 22:13 Juwan Katz MD is Attending Physician. yoandy 22:27 Triage completed. rr5 22:29 Arm band placed on. rr5 22:35 Tib Fib Right XRAY In Process Unspecified. EDMS 22:45 Inserted saline lock: 20 gauge in right forearm, using aseptic technique. Blood rr5 collected. 22:54 Patient has correct armband on for positive identification. Bed in low position. Call rr5 light in reach. Pulse ox on. NIBP on. 22:57 Patient maintains SpO2 saturation greater than 95% on room air. rr5 22:57 Thermoregulation: warm blanket given to patient. rr5 23:27 CT Traumagram (Head C Spine CAP W Con) In Process Unspecified. EDMS 05/05 00:22 Winston Maravilla DO is Hospitalizing Provider. yoandy 01:36 No provider procedures requiring assistance completed. Patient admitted, IV remains in rr5 place. intact, No redness/swelling at site. 07:05 Primary Nurse role handed off by Janet Meraz, RN bp 07:05 Tang Walker, REZA is Primary Nurse. bp Administered Medications: 05/04 23:20 Drug: Zofran (Ondansetron) 4 mg Route: IVP; Site: right forearm; rr5 05/05 00:20 Follow up: Response: No adverse reaction rr5 05/04 23:22 Drug: morphine 2 mg {Note: rass0.} Route: IVP; Site: right forearm; rr5 05/05 00:20 Follow up: Response: No adverse reaction; Pain is decreased; RASS: Alert and Calm (0) rr5 05/04 23:23 Drug: Tetanus-Diphtheria Toxoid Adult 0.5 ml {Crane Rigger: Experiment. Exp: rr5 09/03/2021. Lot #: [id number]. } Route: IM; Site: left deltoid; 05/05 00:20 Follow up: Response: No adverse reaction rr5 03:43 Drug: Rocephin 1 grams Route: IV; Rate: per protocol; Site: right forearm; rr5 Intake: 01:36 PO: 240ml (Water); Total: 240ml. rr5 Outcome: 00:25 Decision to Hospitalize by Provider. yoandy 00:29 Patient's length of stay was not longer than 2 hours. for admissionPatient's length of rr5 stay extended due to 01:36 Admitted to ER Hold. Please see [facility] for further documentation. rr5 01:36 Condition: stable 01:36 Instructed on the need for admit. 15:14 Patient left the ED. eb Signatures: Dispatcher [employer] Juwan Pablo MD MD cha Peltier, Brian, RN RN Odette Randall Raymond, RN RN rr5 Jagdeep Baxter cl3
--- NOTE | 2020-05-05 00:27 | EDPHYS ---
Physician Documentation [facility] Name: Toshia Barone Age: 65 yrs Sex: Female : 1955 Arrival Date: 05/04/2020 Time: 22:11 Bed 6 Private MD: ED Physician Juwan Katz HPI: 05/04 22:24 This 65 yrs old Female presents to ER via Unassigned with complaints of Fall yoandy Injury. 22:24 Details of fall: The patient fell from an upright position, while walking. Onset: The yoandy symptoms/episode began/occurred just prior to arrival. Associated injuries: The patient sustained injury to the head, upper back injury, injury to the low back, lateral aspect of right calf, decreased range of motion, hematoma, painful injury, right low back, hematoma. Historical: - Allergies: 22:20 methylphenidate HCl; rr5 22:20 PENICILLINS; rr5 22:20 Reglan; rr5 22:20 Ritalin; rr5 - Home Meds: 22:20 aspirin 81 mg Oral TbEC 1 tab once daily [Active]; atenolol 100 mg Oral tab 1 tab once rr5 daily [Active]; levothyroxine 50 mcg tab 1 tab once daily [Active]; gabapentin 300 mg Oral cap 1 cap 3 times per day [Active]; isosorbide mononitrate 30 mg Oral Tb24 1 tab once daily [Active]; Eliquis 2.5 mg Oral tab 1 tab 2 times per day [Active]; Nexium 40 mg Oral cpDR 1 cap once daily [Active]; atorvastatin 40 mg Oral tab 1 tab nightly [Active]; ProAir HFA 90 mcg/actuation inhalation HFAA 1 puff every 4 hours [Active]; promethazine 12.5 mg Oral tab 1 tab as needed [Active]; spironolactone 25 mg Oral tab 1 tab 2 times per day [Active]; Stool Softener 100 mg Oral cap 1 cap once daily [Active]; tramadol 50 mg Oral tab 2 tabs every 6 hours [Active]; Vitamin D Oral 47690 unit Q WEEK [Active]; - PMHx: 22:20 B12 deficiency; CHF; COPD; CVA; DVT; fatty liver; GERD; Hyperlipidemia; Hypertension; rr5 Hypothyroidism; Kidney stones; Myocardial infarction; Pancreatitis; TIA; - PSHx: 22:20 Hysterectomy; Lobectomy; ; rr5 - Immunization history:: Adult Immunizations up to date, Last tetanus immunization: > 5 years. - Social history:: Smoking status: unknown. - Family history:: not pertinent. ROS: 22:24 Constitutional: Negative for fever, chills, and weight loss, Eyes: Negative for injury, yoandy pain, redness, and discharge, ENT: Negative for injury, pain, and discharge, Neck: Negative for injury, pain, and swelling, Cardiovascular: Negative for chest pain, palpitations, and edema, Respiratory: Negative for shortness of breath, cough, wheezing, and pleuritic chest pain, Abdomen/GI: Negative for abdominal pain, nausea, vomiting, diarrhea, and constipation, : Negative for injury, bleeding, discharge, and swelling, Skin: Negative for injury, rash, and discoloration, Neuro: Negative for headache, weakness, numbness, tingling, and seizure, Psych: Negative for depression, anxiety, suicide ideation, homicidal ideation, and hallucinations, Allergy/Immunology: Negative for hives, rash, and allergies, Endocrine: Negative for neck swelling, polydipsia, polyuria, polyphagia, and marked weight changes, Hematologic/Lymphatic: Negative for swollen nodes, abnormal bleeding, and unusual bruising. 22:24 Back: Positive for decreased range of motion, pain at rest, pain with movement. 22:24 MS/extremity: Positive for decreased range of motion, pain, swelling, tenderness, of the lateral aspect of right calf. Exam: 22:24 Constitutional: This is a well developed, well nourished patient who is awake, alert, yoandy and in no acute distress. Head/Face: Normocephalic, atraumatic. Eyes: Pupils equal round and reactive to light, extra-ocular motions intact. Lids and lashes normal. Conjunctiva and sclera are non-icteric and not injected. Cornea within normal limits. Periorbital areas with no swelling, redness, or edema. ENT: Nares patent. No nasal discharge, no septal abnormalities noted. Tympanic membranes are normal and external auditory canals are clear. Oropharynx with no redness, swelling, or masses, exudates, or evidence of obstruction, uvula midline. Mucous membranes moist. Chest/axilla: Normal chest wall appearance and motion. Nontender with no deformity. No lesions are appreciated. Cardiovascular: Regular rate and rhythm with a normal S1 and S2. No gallops, murmurs, or rubs. Normal PMI, no JVD. No pulse deficits. Respiratory: Lungs have equal breath sounds bilaterally, clear to auscultation and percussion. No rales, rhonchi or wheezes noted. No increased work of breathing, no retractions or nasal flaring. Abdomen/GI: Soft, non-tender, with normal bowel sounds. No distension or tympany. No guarding or rebound. No evidence of tenderness throughout. Back: No spinal tenderness. No costovertebral tenderness. Full range of motion. Skin: Warm, dry with normal turgor. Normal color with no rashes, no lesions, and no evidence of cellulitis. Neuro: Awake and alert, GCS 15, oriented to person, place, time, and situation. Cranial nerves II-XII grossly intact. Motor strength 5/5 in all extremities. Sensory grossly intact. Cerebellar exam normal. Normal gait. Psych: Awake, alert, with orientation to person, place and time. Behavior, mood, and affect are within normal limits. 22:24 Neck: External neck: is normal, no acute changes. 22:24 Back: pain, that is moderate, ROM is painful, normal spinal alignment noted, CVA tenderness, is absent, muscle spasm, is appreciated in the left low back, left mid back, right mid back and right low back. 22:24 Musculoskeletal/extremity: Extremities: noted in the lateral aspect of right calf: abrasion, decreased ROM, ecchymosis, pain, swelling, tenderness. Vital Signs: 22:20 BP 171 / 86; Pulse 68; Resp 17; Temp 97.8; Pulse Ox 99% ; Weight 84.37 kg; Height 5 ft. rr5 5 in. (165.10 cm); Pain 8/10; 23:24 BP 159 / 90; Pulse 70; Resp 16; Pulse Ox 99% ; rr5 05/05 00:27 BP 124 / 71; Pulse 67; Resp 16; Pulse Ox 99% ; rr5 01:36 BP 115 / 72; Pulse 93; Resp 17; Pulse Ox 99% ; rr5 05/04 22:20 Body Mass Index 30.95 (84.37 kg, 165.10 cm) rr5 Mahad Coma Score: 05/04 22:20 Eye Response: spontaneous(4). Verbal Response: oriented(5). Motor Response: obeys rr5 commands(6). Total: 15. Trauma Score (Adult): 22:20 Eye Response: spontaneous(1); Verbal Response: oriented(1); Motor Response: obeys rr5 commands(2); Systolic BP: > 89 mm Hg(4); Respiratory Rate: 10 to 29 per min(4); Troy Score: 15; Trauma Score: 12 MDM: 22:13 Patient medically screened. [facility] 22:28 Differential diagnosis: abrasion, closed head injury, contusion, fracture, multiple yoandy trauma, sprain, strain. Data reviewed: vital signs, nurses notes, lab test result(s), radiologic studies, CT scan, plain films. 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 Test interpretation: by ED physician or midlevel provider: ECG, plain radiologic studies. Counseling: I had a detailed discussion with the patient and/or guardian regarding: the historical points, exam findings, and any diagnostic results supporting the discharge/admit diagnosis, lab results, radiology results, the need for outpatient follow up, for definitive care, a family practitioner, an compensation intern, a orthopedic surgeon. 05/04 22:24 Order name: Basic Metabolic Panel; Complete Time: 23:44 [facility] 05/04 22:24 Order name: CBC with Diff; Complete Time: 23:44 [facility] 05/04 22:24 Order name: Type And Screen; Complete Time: 23:44 [facility] 05/05 01:44 Order name: COVID-19 la1 05/05 01:53 Order name: CREATININE WHOLE BLOOD [facility] 05/05 03:33 Order name: Urine Microscopic Only rr5 05/04 22:24 Order name: CT Traumagram (Head C Spine CAP W Con) [facility] 05/04 22:24 Order name: Tib Fib Right XRAY [facility] 05/05 03:35 Order name: Urine Culture [facility] 05/05 04:02 Order name: Urine Microscopic Only [facility] 05/05 06:17 Order name: CBC with Automated Diff [facility] 05/05 06:21 Order name: Basic Metabolic Panel [facility] 05/04 22:24 Order name: Labs collected and sent; Complete Time: 22:50 [facility] 05/04 22:24 Order name: Urine Dipstick-Ancillary (obtain specimen); Complete Time: 03:33 [facility] 05/04 22:24 Order name: Ice pack; Complete Time: 22:50 yoandy Administered Medications: 23:20 Drug: Zofran (Ondansetron) 4 mg Route: IVP; Site: right forearm; rr5 05/05 00:20 Follow up: Response: No adverse reaction rr5 05/04 23:22 Drug: morphine 2 mg {Note: rass0.} Route: IVP; Site: right forearm; rr5 05/05 00:20 Follow up: Response: No adverse reaction; Pain is decreased; RASS: Alert and Calm (0) rr5 05/04 23:23 Drug: Tetanus-Diphtheria Toxoid Adult 0.5 ml {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 Exp: rr5 09/03/2021. Lot #: [id number]. } Route: IM; Site: left deltoid; 05/05 00:20 Follow up: Response: No adverse reaction rr5 03:43 Drug: Rocephin 1 grams Route: IV; Rate: per protocol; Site: right forearm; rr5 Disposition: 05/05/20 00:25 Hospitalization ordered by Winston Kat for Observation. Preliminary diagnosis are Fall due to bumping against object, Pain in right lower leg - contusion, abrasion, Low back pain - 10cm x 17cm x 5 cm expanding hematoma, Urinary tract infection, site not specified. - Bed requested for [facility] ER HOLD. - Status is Observation. eb - Condition is Stable. - Problem is new. - Symptoms have improved. Signatures: Dispatcher [employer] EDNE Juwan Katz MD MD cha Garcia, Cindy, RN RN cg Warren Simpson RN RN ja1 Odette Olivares Raymond, RN RN rr5 Corrections: (The following items were deleted from the chart) 01:00 00:25 Hospitalization Ordered by Winston Kat DO for Observation. Preliminary cg diagnosis is Fall due to bumping against object; Pain in right lower leg - contusion, abrasion; Low back pain - 10cm x 17cm x 5 cm expanding hematoma. Bed requested for Telemetry/MedSurg (observation). Status is Observation. Condition is Stable. Problem is new. Symptoms have improved. yoandy 03:35 01:00 05/05/2020 00:25 Hospitalization Ordered by Winston Kat DO for Observation. yoandy Preliminary diagnosis is Fall due to bumping against object; Pain in right lower leg - contusion, abrasion; Low back pain - 10cm x 17cm x 5 cm expanding hematoma. Bed requested for [facility] ER HOLD. Status is Observation. Condition is Stable. Problem is new. Symptoms have improved. cg 08:32 03:35 05/05/2020 00:25 Hospitalization Ordered by Winston Kat DO for Observation. eb Preliminary diagnosis is Fall due to bumping against object; Pain in right lower leg - contusion, abrasion; Low back pain - 10cm x 17cm x 5 cm expanding hematoma; Urinary tract infection, site not specified. Bed requested for [facility] ER HOLD. Status is Observation. Condition is Stable. Problem is new. Symptoms have improved. yoandy 10:13 08:32 05/05/2020 00:25 Hospitalization Ordered by Winston Kat DO for Observation. ja1 Preliminary diagnosis is Fall due to bumping against object; Pain in right lower leg - contusion, abrasion; Low back pain - 10cm x 17cm x 5 cm expanding hematoma; Urinary tract infection, site not specified. Bed requested for Telemetry/MedSurg (observation). Status is Observation. Condition is Stable. Problem is new. Symptoms have improved. eb 11:20 10:13 05/05/2020 00:25 Hospitalization Ordered by Winston Kat DO for Observation. eb Preliminary diagnosis is Fall due to bumping against object; Pain in right lower leg - contusion, abrasion; Low back pain - 10cm x 17cm x 5 cm expanding hematoma; Urinary tract infection, site not specified. Bed requested for Telemetry/MedSurg (observation). Status is Observation. Condition is Stable. Problem is new. Symptoms have improved. ja1 11:21 11:20 05/05/2020 00:25 Hospitalization Ordered by Winston Kat DO for Observation. eb Preliminary diagnosis is Fall due to bumping against object; Pain in right lower leg - contusion, abrasion; Low back pain - 10cm x 17cm x 5 cm expanding hematoma; Urinary tract infection, site not specified. Bed requested for [facility] ER HOLD. Status is Observation. Condition is Stable. Problem is new. Symptoms have improved. eb 15:14 11:21 05/05/2020 00:25 Hospitalization Ordered by Winston Kat DO for Observation. eb Preliminary diagnosis is Fall due to bumping against object; Pain in right lower leg - contusion, abrasion; Low back pain - 10cm x 17cm x 5 cm expanding hematoma; Urinary tract infection, site not specified. Bed requested for [facility] ER HOLD. Status is Observation. Condition is Stable. Problem is new. Symptoms have improved. eb
--- NOTE | 2020-05-05 01:08 | P.HP ---
Certification for Inpatient Patient admitted to: Observation With expected LOS: <2 Midnights Patient will require the following post-hospital care: None Practitioner: I am a practitioner with admitting privileges, knowledge of patient current condition, hospital course, and medical plan of care. Services: Services provided to patient in accordance with Admission requirements found in Title 42 Section 412.3 of the Code of Federal Regulations <DyanaatulRomeo - Last Filed: 05/05/20 00:58> Patient admitted to: Observation Patient will require the following post-hospital care: Home Health Services Practitioner: I am a practitioner with admitting privileges, knowledge of patient current condition, hospital course, and medical plan of care. Services: Services provided to patient in accordance with Admission requirements found in Title 42 Section 412.3 of the Code of Federal Regulations <Winston Kat - Last Filed: 05/05/20 09:04> Patient History Date of Service: 05/05/20 Primary Care Provider: Dr. Miller Reason for admission: Expanding hematoma History of Present Illness: 65-year-old female with history of CAD, CVA, COPD, hypothyroidism, CHF presents emergency department for mechanical fall. Patient reports that she is walking toward apartment and tripped on the concrete falling onto her back. Patient reports pain to her right lower extremity and right low back. Patient was worked up in the emergency department with CT trauma gram which showed 10 cm x 17 cm hematoma to the right flank with small amount of extravasation of contrast suggesting small amount of active bleeding. ED provider discuss case with General Surgery who agreed with observation admit in consultation. When I saw the patient in the emergency department she is awake, alert, oriented x3. Patient complaining of mild pain in the right mid low back. Vital signs stable. Patient be admitted for further evaluation and management. - Past Medical/Surgical History Diabetic: No -: HTN -: CHF -: COPD -: HYPERLIPIDEMIA -: [place] -: Chronic pancreatitis -: Depression with anxiety -: DVT R leg -: cerebellar ataxia -: DDD/DJD of the back, Osteoarthritis -: kidney stones -: CVA (2014) -: Stents placed 2007 -: Mass removed - Partial upper Left lobectomy -: Cholecystectomy -: Hysterectomy -: pancreatic stent -: Psychosocial/ Personal History: - Family History Sister -: Diabetes, Liver disease Mother -: Heart disease - Social History Smoking Status: Former smoker Alcohol use: No CD- Drugs: No Caffeine use: Yes Place of Residence: Home <Jorge LuisRomeo - Last Filed: 05/05/20 00:58> Date of Service: 05/05/20 Home medications list reviewed: Yes <Winston Kat - Last Filed: 05/05/20 09:04> Allergies metoclopramide HCl [From Reglan] Allergy (Intermediate, Verified 05/15/14 00:00) Nausea/Vomiting methylphenidate HCl [From Ritalin] Adverse Reaction (Mild, Verified 05/15/14 00:00) NERVOUS Penicillins Adverse Reaction (Mild, Verified 05/15/14 00:00) Rash Home Medications: Aspirin [Aspirin EC 81 MG] 81 mg PO DAILY 04/30/18 Atenolol [Tenormin] 100 mg PO DAILY 04/30/18 Clopidogrel Bisulfate [Plavix*] 75 mg PO DAILY 04/30/18 Esomeprazole Mag Trihydrate [Nexium] 40 mg PO DAILY 04/30/18 Furosemide [Lasix*] 20 mg PO DAILY 04/30/18 Hydrocodone Bit/Acetaminophen [Hydrocodon-Acetaminoph 7.5-325] 1 each PO BID PRN 04/30/18 Levothyroxine [Synthroid*] 50 mcg PO [id number] 04/30/18 Venlafaxine HCl *Xr* [Effexor XR] 75 mg PO DAILY 04/30/18 Review of Systems 10-point ROS is otherwise unremarkable Musculoskeletal: Back Pain (Right low back pain), Leg Pain (Right leg pain) <Romeo Kang - Last Filed: 05/05/20 00:58> Physical Examination - Physical Exam General: Alert, In no apparent distress, Oriented x3 HEENT: Atraumatic, Normocephalic, PERRLA, Mucous membr. moist/pink Neck: Supple Respiratory: Clear to auscultation bilaterally, Normal air movement Cardiovascular: No edema, Normal S1 S2 Gastrointestinal: Normal bowel sounds, Hypoactive, Soft and benign Musculoskeletal: Other (Preparation and bruising to right glass area, large palpable hematoma noted to right low back area) Integumentary: No erythema, No warmth, No cyanosis Neurological: Normal speech, Normal strength at 5/5 x4 extr, Normal tone, Sensation intact - Studies Laboratory Data (last 24 hrs) 05/04/20 22:45: WBC 6.4, Hgb 12.7, Hct 39.0, Plt Count 180 05/04/20 22:45: Sodium 140, Potassium 3.7, BUN 18, Creatinine 0.76, Glucose 96 <Romeo Kang - Last Filed: 05/05/20 00:58> - Studies Laboratory Data (last 24 hrs) 05/04/20 22:45: WBC 6.4, Hgb 12.7, Hct 39.0, Plt Count 180 05/04/20 22:45: Sodium 140, Potassium 3.7, BUN 18, Creatinine 0.76, Glucose 96 <Winston Kat - Last Filed: 05/05/20 09:04> Assessment and Plan - Plan Assessment [id number] hematoma in the right flank with small amount active bleeding complicated by use of dual anti-platelet therapy Chronic diastolic congestive heart failure Hypertension Hyperlipidemia Hypothyroidism COPD History of CAD History of CVA Plan [id number] hematoma in the right flank with small amount active bleeding complicated by use of dual anti-platelet therapy: Admit under observation, general surgery consult in place. Hold all anti-platelet therapy, provide patient with p.r.n. pain medication. SCDs for DVT prophylaxis. Repeat CBC with morning labs. Chronic diastolic congestive heart failure: Stable at this time, continue home meds Hypertension: Continue home meds Hyperlipidemia: Continue home meds Hypothyroidism: Continue home meds COPD: P.r.n. inhaler History of CAD: Hold aspirin, Plavix History of CVA: Hold aspirin, Plavix Discharge Plan: Home Plan to discharge in: 24 Hours - Advance Directives Does patient have a Living Will: No Does patient have a Durable POA for Healthcare: No - Code Status/Comfort Care Code Status Assessed: Yes (Full code) Critical Care: No Time Spent Managing Pts Care (In Minutes): 55 <Romeo Kang - Last Filed: 05/05/20 00:58> - Plan Case discussed in detail with nurse practitioner. Agree with evaluation, assessment and plan of care. Patient stable this time. Spoke with surgery. No intervention required. Patient to hold aspirin and Plavix for at least 48 hr. Patient will be given abdominal binder. Will arrange for physical therapy to assess ambulation. Will recommend home health and physical therapy at discharge. Fall precautions in place. Please see discharge summary for details. <Winston Kat Last Filed: 05/05/20 09:04>
[2020-05-05] MEDS ORDERED: ALBUTEROL INHALER 60 PUFF/8 GM IH PRN (01:54)
[2020-05-05] MEDS ORDERED: ACETAMINOPHEN 500 MG TAB PO PRN (01:54)
[2020-05-05] MEDS ORDERED: MORPHINE 2 MG/ML SYR IV PRN (01:54)
[2020-05-05] MEDS ORDERED: ONDANSETRON 4 MG/2 ML VIAL IV PRN (01:54)
[2020-05-05] MEDS ORDERED: HYDROCODONE/APAP 5/325 MG TAB PO PRN (01:54)
[2020-05-05] MEDS ORDERED: MORPHINE 2 MG/ML SYR ONE ×2 (02:10→08:33)
[2020-05-05 02:44] VITALS: BMI 30.8
[2020-05-05] MEDS ORDERED: CEFTRIAXONE/SWI 1gm 1 GM/10 ML SYR ONE (03:50)
[2020-05-05 04:01] LABS: Urine Bacteria <20 /HPF (<20); Urine Culture Reflex Order NOT NEEDED
[2020-05-05 06:16] LABS: Absolute Lymphocytes (CBC) 2.2 K/uL (0.7-4.9); Basophils % 0.5 % (0-1.3); Hematocrit 35.6 % (36.0-45.0); Lymphocytes % 36.2 % (15.3-44.8); MPV 8.9 fL (7.6-11.3); RBC Red Blood Cell Count 3.96 M/uL (3.86-4.86)
[2020-05-05 06:20] LABS: Potassium 3.6 mmol/L (3.5-5.1)
--- NOTE | 2020-05-05 08:26 | RAD REPORT ---
EXAM DESCRIPTION: RAD - Tib Fib Right - 05/04/2020 10:36 pm CLINICAL HISTORY: PAIN, trip and fall COMPARISON: No comparisons FINDINGS: No fracture is identified. There is no dislocation or periosteal reaction noted. No acute or suspicious bony finding. No foreign body or other soft tissue abnormality. IMPRESSION: Negative right tibia & fibula examination.
[2020-05-05] MEDS ORDERED: FUROSEMIDE 20 MG TABLET ONE (08:32)
[2020-05-05] MEDS ORDERED: PANTOPRAZOLE 40MG TABLET PO ONE (08:32)
[2020-05-05] MEDS ORDERED: atenoloL 50 MG TAB ONE (08:33)
--- NOTE | 2020-05-05 08:54 | P.DS ---
Admission Date: 05/05/20 Discharge Date: 05/05/20 Primary Care Provider: Dr. Miller Disposition: ROUTINE DISCHARGE Discharge Condition: GOOD Reason for Admission: Expanding hematoma Consultations: Surgery-Dr. Burris Procedures: CT Head: Unremarkable. CT Abdomen: Hematoma and contusion to the right flank area in the subcutaneous fatty tissue. CT Chest: Hx of Left Lobectomy 0.4 cm medial lung nodule. Assessment [id number] hematoma in the right flank after fall Chronic diastolic congestive heart failure Hypertension Hyperlipidemia Hypothyroidism GERD History of CAD History of CVA Brief History of Present Illness: 65-year-old female with history of CAD, CVA, COPD, hypothyroidism, CHF presents emergency department for mechanical fall. Patient reports that she is walking toward apartment and tripped on the concrete falling onto her back. Patient reports pain to her right lower extremity and right low back. Patient was worked up in the emergency department with CT trauma gram which showed 10 cm x 17 cm hematoma to the right flank with small amount of extravasation of contrast suggesting small amount of active bleeding. ED provider discuss case with General Surgery who agreed with observation admit in consultation. Hospital Course: Patient presented to the emergency room after a fall. Patient suffered hematoma to the right flank area. Patient is on aspirin and Plavix for history of CVA and CAD. CT scan revealed hematoma to the right flank area. There was some suspicion of active bleeding. The patient was monitored overnight. Aspirin and Plavix was held. Patient has done well. Hemoglobin stable. No significant drop noted. Patient was seen and evaluated by surgery. No surgical intervention was recommended. Surgery recommended to place an abdominal binder over the next several days. Surgery also recommends to hold aspirin and Plavix for at least 48 hr. Recommend follow up with surgery in 1 week to follow up this hospitalization. Physical therapy will work with patient on fall precaution. Will arrange for home health and physical therapy at discharge. Patient takes hydrocodone as needed for pain. This may be continued. Patient with history of CAD, CVA. As recommended above will hold aspirin, Plavix for 48 hr. After that time this can be restarted. Patient also takes Lasix 20 mg daily. This can be continued. Patient with underlying hypertension. This is currently stable. At discharge she will continue with atenolol 100 mg daily. Recommend to maintain blood pressure less than 150/80. Further adjustment can be done by her PCP. Patient with hypothyroidism. At discharge she will continue with Synthroid 50 mcg daily. Patient with depression with anxiety. At discharge she may continue with her medication Effexor ER 75 mg daily. Patient with GERD. At discharge she will continue with Nexium 40 mg daily. Vital Signs/Physical Exam: Temp Pulse Resp BP Pulse Ox 97.8 F 75 18 113/75 99 05/05/20 04:00 05/05/20 04:00 05/05/20 04:00 05/05/20 04:00 05/05/20 04:00 General: Alert, In no apparent distress, Oriented x3, Cooperative HEENT: Atraumatic Neck: Supple Respiratory: Clear to auscultation bilaterally, Normal air movement Cardiovascular: Normal pulses, Regular rate/rhythm Gastrointestinal: Normal bowel sounds, No tenderness, No masses, No rebound, No guarding Musculoskeletal: No tenderness, No warmth Integumentary: Other (hematoma to the right flank area. area is about 2 by 5 inches in size. ) Neurological: Normal speech, Normal strength at 5/5 x4 extr, Normal tone, Normal affect Laboratory Data at Discharge: WBC 6.1 K/uL (4.3-10.9) 05/05/20 05:57 Hgb 11.7 g/dL (12.0-15.0) L 05/05/20 05:57 Hct 35.6 % (36.0-45.0) L 05/05/20 05:57 Plt Count 169 K/uL (152-406) 05/05/20 05:57 Sodium 142 mmol/L (136-145) 05/05/20 05:57 Potassium 3.6 mmol/L (3.5-5.1) 05/05/20 05:57 BUN 16 mg/dL (7-18) 05/05/20 05:57 Creatinine 0.74 mg/dL (0.55-1.3) 05/05/20 05:57 Glucose 96 mg/dL (74-106) 05/05/20 05:57 Home Medications: Aspirin [Aspirin EC 81 MG] 81 mg PO DAILY 04/30/18 Atenolol [Tenormin] 100 mg PO DAILY 04/30/18 Clopidogrel Bisulfate [Plavix*] 75 mg PO DAILY 04/30/18 Esomeprazole Mag Trihydrate [Nexium] 40 mg PO DAILY 04/30/18 Furosemide [Lasix*] 20 mg PO DAILY 04/30/18 Hydrocodone Bit/Acetaminophen [Hydrocodon-Acetaminoph 7.5-325] 1 each PO BID PRN 04/30/18 Levothyroxine [Synthroid*] 50 mcg PO [id number] 04/30/18 Venlafaxine HCl *Xr* [Effexor XR] 75 mg PO DAILY 04/30/18 Patient Discharge Instructions: 1. Recommend follow up with PCP in 1 week to follow up this hospitalization. 2. Patient presented to the emergency room after a fall. Patient suffered hematoma to the right flank area. Patient is on aspirin and Plavix for history of CVA and CAD. CT scan revealed hematoma to the right flank area. There was some suspicion of active bleeding. The patient was monitored overnight. Aspirin and Plavix was held. Patient has done well. Hemoglobin stable. No significant drop noted. Patient was seen and evaluated by surgery. No surgical intervention was recommended. Surgery recommended to place an abdominal binder over the next several days. Surgery also recommends to hold aspirin and Plavix for at least 48 hr. Recommend follow up with surgery in 1 week to follow up this hospitalization. Physical therapy will work with patient on fall precaution. Will arrange for home health and physical therapy at discharge. Patient takes hydrocodone as needed for pain. This may be continued. 3. Patient with history of CAD, CVA. As recommended above will hold aspirin, Plavix for 48 hr. After that time this can be restarted. Patient also takes Lasix 20 mg daily. This can be continued. 4. Patient with underlying hypertension. This is currently stable. At discharge she will continue with atenolol 100 mg daily. Recommend to maintain blood pressure less than 150/80. Further adjustment can be done by her PCP. 5. Patient with hypothyroidism. At discharge she will continue with Synthroid 50 mcg daily. 6. Patient with depression with anxiety. At discharge she may continue with her medication Effexor ER 75 mg daily. 7. Patient with GERD. At discharge she will continue with Nexium 40 mg daily. Diet: AHA Activity: Fall precautions Followup: Tonio Miller DO [Primary Care Provider] - Time spent managing pt's care (in minutes): 55
[2020-05-05] MEDS ORDERED: atenoloL 50 MG TAB PO SCH (09:00)
[2020-05-05] MEDS ORDERED: PANTOPRAZOLE 40MG TABLET PO SCH (09:00)
[2020-05-05] MEDS ORDERED: HOME MED 1 EA UNK (Esomeprazole Mag Trihydrate [Nexium] 40 MG) PO SCH (09:00)
[2020-05-05] MEDS ORDERED: VENLAFAXINE HCL XR 75 MG CAP PO SCH (09:00)
[2020-05-05] MEDS ORDERED: FUROSEMIDE 20 MG TABLET PO SCH (09:00)
[2020-05-05] MEDS ORDERED: PNEUMOCOCCAL VACCINE 0.5 ML IMVAC ONE (10:00)
--- NOTE | 2020-05-05 11:40 | RAD REPORT ---
EXAM DESCRIPTION: CT - Head C Spine Cap W Con - 05/05/2020 6:21 am CLINICAL HISTORY: 65 years Female PAIN COMPARISON: None. TECHNIQUE: Contiguous axial CT images obtained through the brain without IV contrast. This exam was performed according to our department optimization program which includes automated exp osure control, adjustment of the mA and/or kv according to patient size and/or use of iterative recon struction technique. FINDINGS: The ventricles and sulci appear unremarkable. No abnormal areas of decreased density are identified. No mass lesions. No acute hemorrhage. Mild atherosclerotic calcifications No fluid or significant mucosal thickening in the visualized paranasal sinuses. No depressed calvarial fractures. IMPRESSION: No acute intracranial abnormality is identified. EXAM DESCRIPTION: Head C Spine Cap W Con CLINICAL HISTORY: 65 years Female PAIN COMPARISON: None. TECHNIQUE: Contiguous axial images obtained through the cervical spine without IV contrast. Coronal and sagittal reformatted images obtained. This exam was performed according to our department optimization program which includes automated exp osure control, adjustment of the mA and/or kv according to patient size and/or use of iterative recon struction technique. FINDINGS: Vertebral body alignment is unremarkable. No acute fractures. There are mild degenerative changes without significant spinal or foraminal stenosis. Atherosclerotic calcifications in the aortic arch. There are postsurgical changes involving the left upper ribs. IMPRESSION: No acute cervical spinal fracture is identified. EXAM DESCRIPTION: Head C Spine Cap W Con CLINICAL HISTORY: 65 years Female PAIN COMPARISON: CT chest study from 12/22/[address] abdomen and pelvis study from 02/20/2020. TECHNIQUE: Contiguous axial images obtained through the chest, abdomen and pelvis following IV contr ast. Reformatted images obtained. This exam was performed according to our department optimization program which includes automated exp osure control, adjustment of the mA and/or kv according to patient size and/or use of iterative recon struction technique. FINDINGS: There are postsurgical changes in the left lung from lobectomy. The mediastinum appears unremarkable. Coronary artery calcifications. Atherosclerotic changes in the thoracic aorta. No evidence for thoracic aortic dissection. No consolidating infiltrates or pleural effusions. No pneumothorax. There is a stable 0.4 cm nodu lar lesion in the anterior left lung. Mild fatty replacement in the liver. There are small bilateral renal cysts. There is mild cortical scarring involving the left kidney. No hydronephrosis. The spleen and pancreas appear unremarkable. No adrenal masses. Changes from previous cholecystectomy. Atherosclerotic calcifications. No aneurysmal dilatation of the aorta. No bowel obstruction. The appendix appears unremarkable. No free pelvic fluid. There are changes from previous hysterectomy. There is hematoma and contusion in the subcutaneous fatty tissues in the posterior mid right abdomen. The area of contusion and hematoma measures approximately 10 cm in height by 17 cm in transverse anusha meter by 5 cm in AP diameter. There is a small amount of contrast extravasation into the hematoma. There are defects in the left upper ribs likely postsurgical. Degenerative changes in the spine. No a cute osseous abnormality is identified. IMPRESSION: There is hematoma and contusion in the subcutaneous fatty tissues in the posterior mid r ight abdomen/right flank. There is a small amount of contrast extravasation consistent with active bl eeding. The finding were called to Dr. Katz at 12:02 AM. No other acute intrathoracic or intra-abdominal traumatic injury is identified. There are changes from previous left lung lobectomy. There is a stable 0.4 cm nodular lesion in the anterior left lung. Continued follow-up recommended. Electronically signed by: Jose Luis Spencer MD 05/05/2020 12:09 AM [employer] Due to temporary technical issues with the PACS/Fluency reporting system, reports are being signed by the in house radiologist without review as a courtesy to ensure prompt reporting. The interpreting r adiologist is fully responsible for the content of the report.
[2020-05-05 12:49] VITALS: BP 94/71; TEMP 97.8
--- NOTE | 2020-05-05 14:41 | CON ---
Date of Consultation: 05/05/2020 Brief History Of Present Illness: Patient is a 65-year-old female with history of coronary artery disease, CVA, COPD, hypothyroidism, CHF, who is on Plavix and aspirin, who had mechanical fall yesterday onto her right hip area. She tripped over concrete, fell on her back, reported pain in th e right lower extremity and lower back. She was seen in the emergency room at that point and had a 1 0 cm x 17 cm hematoma to right flank area with small amount of contrast extravasation of subcutaneous tissues. She was brought to the hospital for the above-stated complaint. Past Medical History: Significant for hypertension, CHF, COPD, hyperlipidemia, myocardial infarction , chronic pancreatitis, depression, anxiety, DVT of right lower extremity, cerebellar ataxia, degener ative joint disease, osteoarthritis, kidney stones, CVA in 2014, cardiac stents placed in 2007, mass removed of partial upper left lung, cholecystectomy, hysterectomy, pancreatic stent, . Social History: She has a former 30+ pack-year smoking history. Denies alcohol or recreational drug use. Allergies: TO REGLAN, RITALIN AND PENICILLIN. Home Medications: Include aspirin, atenolol, Plavix, Nexium, Lasix, [place], Synthroid, Effexor. Review of Systems: Ten-point review of systems other than HPI, denies. Physical Examination: Vital Signs: At the time of examination, her vital signs are temperature of 98.3, pulse 64, respirat ory rate 15, blood pressure 191/46, SpO2 95% on room air. General: She is awake, alert, oriented. Psychiatric: She is appropriate and conversive HEENT: She is normocephalic. Sclerae anicteric. Mu cous membranes are moist. Oropharynx is clear. Neck: Supple. No JVD. Chest: Normal expansion and excursion. Cardiovascular: Regular rate and rhythm. Pulmonary: Clear to auscultation bilaterally. Abdomen: Soft, nontender, nondistended. She has a right posterior flank hematoma approximately 12 c m in size. Minimal tenderness. There is bruising and ecchymosis over the top. She has similar brui sing to the right lower extremity on the anterior tibial area and a small abrasion to this area. No additional findings. Laboratory Data: She had a laboratory exam, which reveals a white blood cell count of 6.1, hemoglobi n 11.7, hematocrit 35.6. Her hemoglobin dropped by 1 g of the course of the evening including IV hyd ration. Platelet count was 169. Neutrophils are 54%. Her sodium 142, potassium 3.6, chloride 106, carbon dioxide 28, BUN 16, creatinine 0.7, glucose was 96. She had imaging performed, which included a CT, traumagram, which officially read as there is hematoma and contusion in the subcutaneous fatty tissue and posterior right abdominal flank. There is a small amount of contrast extravasation consi stent with active bleeding. No acute intrathoracic or intraabdominal finding is identified. Previou s left lung lobectomy, stable 0.4 cm nodule in the anterior left lung. Continued follow up recommend ed. Assessment And Plan: This is a 65-year-old female who comes in with signs and symptoms of a hematoma of the right flank after a fall while being maintained on blood thinners. 1.Continue medical management. 2.Hold blood thinners for 48 hours. 3.Abdominal binder to the area. 4.I have explained the risks, benefits, and alternatives of above stated plan. The patient agrees t o proceed as indicated. Thank you for this interesting consult. ROLAND/MARIJA Voice ID: [id number] Report ID: [id number]
[2020-05-05 15:58] VITALS: O2SAT 99
[2020-05-06] MEDS ORDERED: LEVOTHYROXINE SOD 0.05 MG TABLET PO SCH (06:00)
== END 2020-05-05 15:04 | disposition home or self-care (01) ==
LOC: ER 22:09 → ERHOLD 05-05 00:58
PROVIDERS: ADMIT Family Medicine; ATTEND Family Medicine
DX: S30.1XXA Contusion of abdominal wall, initial encounter (principal); I11.0 Hypertensive heart disease with heart failure; I50.32 Chronic diastolic (congestive) heart failure; E78.5 Hyperlipidemia, unspecified; E03.9 Hypothyroidism, unspecified; K21.9 Gastro-esophageal reflux disease without esophagitis; Z20.828 Contact with and (suspected) exposure to other viral communicable diseases; I25.10 Atherosclerotic heart disease of native coronary artery without angina pectoris; Z86.73 Personal history of transient ischemic attack (TIA), and cerebral infarction without residual deficits; J44.9 Chronic obstructive pulmonary disease, unspecified; W01.0XXA Fall on same level from slipping, tripping and stumbling without subsequent striking against object, initial encounter; Z79.02 Long term (current) use of antithrombotics/antiplatelets; Z79.82 Long term (current) use of aspirin; I25.2 Old myocardial infarction; K86.1 Other chronic pancreatitis; Z86.718 Personal history of other venous thrombosis and embolism; M19.90 Unspecified osteoarthritis, unspecified site; Z95.5 Presence of coronary angioplasty implant and graft; Z87.891 Personal history of nicotine dependence; F41.8 Other specified anxiety disorders; G11.9 Hereditary ataxia, unspecified; Z23 Encounter for immunization
CPT/HCPCS: 87088; 85025 ×2; 87086; 80048 ×2; 36415; 86900; 86850; 82565; 86901; 81015; 70450; 72125; 71260; 74177; 73590; 90471; 90714; 97116; 97161; 96375; 96374; 99285; U0002; Q9967; J2270 ×3; J0696; J2405; G0390

== ENCOUNTER 2020-09-02 16:04 | Emergency (ER) | payer OTHER ==
--- OUTSIDE RECORDS SUMMARY | 2020-09-02 16:08 | XMS REPORT | Continuity of Care Document ---
:1955 Author Organization [facility] t Address [address] [place] [address] Care Team Providers Name Role Phone Evangelista Go MD Attending Clinician Payers Payer Name Policy Type Policy Number Effective Date Expiration Date S ource Problems This patient has no known problems. Allergies, Adverse Reactions, Alerts Allergy Allergy Status Severity Reaction(s) Onset Inactive Treating Comm ents Source Name Type Date Date Clinician [place] DA Active [place] 2016-06 [facility]: [address] metoclop DA Active [place] 2016-06 [facility] ramide 07-01 00:00: [address] Metoclop Adverse [facility] anxiety [facility] PCN Adverse Active hives [facility] Reaction [facility] Medications Ordered Filled Start Stop Current Ordering Indication Dosage Frequency Signature Comments Components Source Medication Medication Date Date Medication? Clinician (SIG) Name Name Scopolamine Scopolamine 2020-0 2020- No Tonio [address] [facility] 02[facility]18 [facility] skin [facility] behind the [facility] 00 :00 ear as [facility] needed [facility] Tamsulosin Tamsulosin 2020- No Tonio [address] [facility] HCl HCl 02-17 Miller [facility]00 [facility] 00 :00 [facility] Nystatin Nystatin Yes Tonio 4 - [address] [facility] 5-11 Miller swish, [facility] - 00:00: retain in Memoria 00 mouth as l long as Outpati possible ent then Clinics swallow Trelegy Trelegy Yes [facility] puff [facility] Ell[facility] l [facility] Loratadine Loratadine Yes Tonio [address] [facility] Miller [facility] l [facility] Vitamin B12 Vitamin B12 Yes Tonio [address] [facility] Miller [facility] l [facility] Synthroid Synthroid Yes Tonio [address] [facility] Miller on an [facility] - empty [facility] stomach in l the Outpati morning ent Clinics Aspirin Aspirin Yes [facility]io TAKE [facility] TABLET BY [facility] Aspirin Low Aspirin Low Yes Tonio TAKE [address] [facility] Dose Dose Miller TABLET BY [facility] - MOUTH [facility] EVERY DAY l [facility] Atenolol Atenolol Yes Tonio TAKE [address] [facility] Miller TABLET BY [facility] Nexium Nexium Yes Tonio TAKE ONE [facility] CAPSULE BY [facility] - MOUTH [facility] EVERY DAY l [facility] ProAir HFA ProAir HFA Yes Tonio [address] [facility] Miller needed [facility] Furosemide Furosemide Yes Tonio [address] [facility] Miller [facility] Venlafaxine Venlafaxine Yes Tonio TAKE ONE [facility] HCl ER HCl ER Miller CAPSULE BY Luke s - MOUTH Memoria EVERY DAY l [facility] Simvastatin Simvastatin Yes Tonio [address] [facility] Simvastatin Simvastatin Yes Tonio [address] [facility] Miller in the [facility] - evening [facility] Levothyroxi Levothyroxi Yes Tonio TAKE [address] [facility] ne Sodium ne Sodium Miller TABLET BY [facility]TH [facility] Aspirin Aspirin Yes Tonio TAKE [facility] TABLET BY [facility] - M[facility]TH Memoria EVERY DAY l [facility] ent [facility]ics Clopidogrel Clopidogrel Yes Tonio [address] [facility] Bisulfate Bisulfate Miller Luke s - Memoria l [facility]ics Promethazin Promethazin Yes Tonio [address] [facility] e HCl e HCl Miller needed [facility] Gabapentin Gabapentin Yes Tonio TAKE [address] [facility] Miller CAPSULE BY [facility] - MOUTH Memoria EVERY DAY l [facility] Zofran Zofran Yes Tonio 1 tablet [facility] as needed [facility] Docusate Docusate Yes Tonio TAKE [address] [facility] Sodium Sodium Miller CAPSULE BY Luke s - MOUTH Memoria TWICE A l DAY [facility] ent [facility]ics Spironolact Spironolact Yes Tonio TAKE [address] [facility] one one Miller TABLET BY [facility] - M[facility]TH [facility]oria EVERY DAY l [facility]ics Venlafaxine Venlafaxine Yes Tonio [address] [facility] HCl ER HCl ER Miller with [facility] Nasonex Nasonex Yes Tonio [address] [facility] Miller in each [facility] - nostril [facility] l [facility] Hydrocodone Hydrocodone Yes Tonio [address] [facility] -Acetaminop -Acetaminop Miller as needed [facility] Clotrimazol Clotrimazol Yes Tonio [address] [facility] e e Miller applicatio [facility] n [facility] l [facility] Procedures This patient has no known procedures. Encounters Start End Encounter Admission Attending Care Care Encounter Source Date/Time Date/Time Type Type Clinicians Facility Department ID 2020-07-07 2020-07-07 Office KELLIE Go [id number] 10:30:00 10:45:00 Visit Yash Viviane [id number] Evangelista Ramírez [id number] Profbarak [id number] [address] 2020-06-27 2020-06-27 Outpatient [facility]MLC [facility] [id number] [facility] 2020-05-29 2020-05-29 Outpatient [facility] [id number] [facility] 2020-05-17 2020-05-17 Outpatient [facility] [id number] [facility] 2020-05-16 2020-05-16 Outpatient [facility] [id number] [facility] 2020-04-27 2020-04-27 Outpatient [facility] [id number] [facility] 2020-04-26 2020-04-26 Outpatient [facility]MLC [facility] [id number] [facility] 2020-04-13 2020-04-13 Outpatient [facility] [id number] [facility] 2020-04-06 2020-04-06 Outpatient [facility] [id number] [facility] 2020-03-30 2020-03-30 Outpatient [facility]ML[facility] [id number] [facility] 2020-03-28 2020-03-28 Outpatient [facility]MLC [facility] [id number] [facility] 2020-03-23 2020-03-23 Outpatient [facility]C [facility] [id number] [facility] 2020-03-16 2020-03-16 Outpatient [facility]MLC [facility] [id number] [facility] 2020-03-02 2020-03-02 [facility] [id number] [facility] 16:00:00 16:00:00 t [employer] [facility] Medicine l Medicine Outpati ent Clinics 2020-03-01 2020-03-01 [facility] [id number] [facility] 16:58:00 16:58:00 t [employer] [place] [employer] [facility] Medicine l Medicine Outpati ent Clinics 2020-02-29 2020-02-29 [facility] [id number] [address] 09:32:00 09:32:00 t [employer] [place] [employer] [facility] Medicine l Medicine Outpati ent Clinics 2020-02-19 2020-02-19 [facility] [id number] [facility] 11:43:00 11:43:00 t [employer] [facility] Medicine l Medicine Outpati ent Clinics 2020-02-18 2020-02-18 [facility] [id number] 14:30:00 14:30:00 t Specialty/U Elvira kes - Specialty rology Memori a /Urology Clinic l Clinic Outpati ent Clinics 2020-02-17 2020-02-17 [facility] [id number] [facility] 11:30:00 11:30:00 t Specialty/U Elvira kes - Specialty rology Memori a /Urology Clinic l Clinic Outpati ent Clinics 2019-12-24 2019-12-24 [facility] [id number] 09:32:00 09:32:00 t [employer] [place] [employer] [facility] Medicine l Medicine Outpati ent Clinics 2019-12-13 2019-12-13 [facility] [id number] 11:45:00 11:45:00 t [employer] [facility] Medicine l Medicine Outpati ent Clinics 2019-12-01 2019-12-01 [facility] [id number] 16:54:00 16:54:00 t [employer] [place] [employer] [facility] Medicine l Medicine Outpati ent Clinics 2019-11-25 2019-11-25 [facility] [id number] [facility] 16:55:00 16:55:00 t [employer] [place] [facility] l Medicine Outpati ent Clinics 2019-11-22 2019-11-22 [facility] [id number] 11:38:00 11:38:00 t [place] [employer] Luke s - Drive [facility] Medicine l Medicine Outpati ent Clinics 2019-11-19 2019-11-19 [facility] [id number] 16:25:00 16:25:00 t [facility] Medicine l Medicine Outpati ent Clinics 2019-11-18 2019-11-18 [facility] [id number] [facility] 16:23:00 16:23:00 t [place] Dw[employer]r [employer] - [employer] [facility] Medicine l Medicine Outpati ent Clinics 2019-11-18 2019-11-18 [facility] [id number] 10:45:00 10:45:00 t [place] s - [employer] [facility] Medicine l Medicine Outpati ent Clinics 2019-11-08 2019-11-08 [facility] [id number] 14:04:00 14:04:00 t [facility] Medicine l Medicine Outpati ent Clinics 2019-11-05 2019-11-05 [facility] [id number] [facility] 14:36:00 14:36:00 t [facility] Medicine l Medicine Outpati ent Clinics 2019-11-01 2019-11-01 [facility] [id number] 11:35:00 11:35:00 t [place] Dw[place]r s - Drive [facility] Medicine l Medicine Outpati ent Clinics 2019-10-27 2019-10-27 [facility] [id number] [facility] 13:30:00 13:30:00 t [place] Dw[place] - Drive [facility] Medicine l Medicine Outpati ent Clinics 2019-10-26 2019-10-26 [facility] [id number] 08:59:00 08:59:00 t [place] Dw[place]r [place] - Drive [facility] Medicine l Medicine Outpati ent Clinics 2019-10-25 2019-10-25 [facility] [id number] 08:37:00 08:37:00 t [place] - [employer] [facility] Medicine l Medicine Outpati ent Clinics 2019-10-14 2019-10-14 [facility] [id number] [address] 15:00:00 15:00:00 t [place] - Drive [facility] Medicine l Medicine Outpati ent Clinics 2019-10-12 2019-10-12 [facility] [id number] [facility] 09:50:00 09:50:00 t [place] - [employer] [facility] Medicine l Medicine Outpati ent Clinics 2019-09-17 2019-09-17 [facility] [id number] 08:05:00 08:05:00 t [place] [place] [facility] l Medicine Outpati ent Clinics 2019-08-27 2019-08-27 [facility] [id number] [facility] 14:30:00 14:30:00 t Specialty/U Elvira kes - Specialty rology [facility] Clinic Outpati ent Clinics 2019-08-19 2019-08-19 [facility] [id number] [facility] 11:00:00 11:00:00 t [employer] [place] [facility] l Medicine Outpati ent Clinics 2019-08-05 2019-08-05 [facility] [id number] 09:15:00 09:15:00 t [employer] [place] [facility] l Medicine Outpati ent Clinics 2019-08-03 2019-08-03 [facility] [id number] [facility] 14:40:00 14:40:00 t [facility] [employer] [address] [employer] [address] [facility] Medicine l Medicine Outpati ent Clinics 2019-07-29 2019-07-29 [facility] [id number] [facility] 13:23:00 13:23:00 t [employer] [place] [facility] l Medicine Outpati ent Clinics 2019-07-19 2019-07-19 [facility] [id number] 13:59:00 13:59:00 t [place] - Drive [facility] Medicine l Medicine Outpati ent Clinics 2019-07-14 2019-07-14 [facility] [id number] 13:18:00 13:18:00 t [place] Dw[place]r [place] - Drive [facility] Medicine Medicine Outpati ent Clinics 2019-07-06 2019-07-06 [facility] [id number] 10:00:00 10:00:00 t [place] Dw[place] - Drive [facility] Medicine Outpati ent Clinics 2019-05-17 2019-05-17 [facility] [id number] 13:30:00 13:30:00 t [place] Dw[place]r [place] - Drive [facility] Medicine l Medicine Outpati ent Clinics 2019-03-30 2019-03-30 [facility] [id number] [facility] 15:00:00 15:00:00 t Specialty/U Elvira kes - Specialty rology Memori a /Urology Clinic l Clinic Outpati ent Clinics 2019-03-23 2019-03-23 [facility] [id number] [address] 08:47:00 08:47:00 t Specialty/U Elvira kes - Specialty rology Memori a /Urology Clinic l Clinic Outpati ent Clinics 2019-03-22 2019-03-22 [facility] [id number] 16:57:00 16:57:00 t [place] Dw[place]r s - Drive [facility] Medicine Outpati ent Clinics 2019-03-17 2019-03-17 [facility] [id number] 09:45:00 09:45:00 t [facility] [address] [place] [address] [facility] l Medicine Outpati ent Clinics 2019-03-04 2019-03-04 [facility] [id number] [facility] 11:00:00 11:00:00 t Specialty/U Elvira kes - Specialty rology Memori a /Urology Clinic l Clinic Outpati ent Clinics 2019-03-01 2019-03-01 [facility] [id number] [address] 11:00:00 11:00:00 t [place] Dw[place] - Drive [facility] Medicine Outpati ent Clinics 2019-02-23 2019-02-23 [facility] [id number] [facility] 13:15:00 13:15:00 t [place] Dw[place]r [place] - Drive [facility] Medicine l Medicine Outpati ent Clinics 2019-02-15 2019-02-15 [facility] [id number] 09:54:00 09:54:00 t Specialty/U Elvira kes - Specialty rology Memori a /Urology Clinic l Clinic Outpati ent Clinics 2019-02-08 2019-02-08 [facility] [id number] 13:00:00 13:00:00 t Specialty/U Elvira kes - Specialty rology Memori a /Urology Clinic l Clinic Outpati ent Clinics 2019-02-01 2019-02-01 [facility] [id number] [facility] 14:15:00 14:15:00 t Specialty/U Elvira kes - Specialty rology Memori a /Urology Clinic l Clinic Outpati ent Clinics 2019-01-27 2019-01-27 [facility] [id number] 10:00:00 10:00:00 t [place] Dw[place]r s - Drive [facility] Medicine l Medicine Outpati ent Clinics 2018-12-08 2018-12-08 [facility] [id number] [address] 13:00:00 13:00:00 t [place] Dw[place] s - Drive [facility] Medicine l Medicine Outpati ent Clinics 2018-12-07 2018-12-07 [facility] [id number] 16:17:00 16:17:00 t [place] Dw[place]r s - Drive [facility] Medicine l Medicine Outpati ent Clinics 2018-12-03 2018-12-03 [facility] [id number] [facility] 09:15:00 09:15:00 t [place] Dw[place] - Drive [facility] Medicine l Medicine Outpati ent Clinics 2018-10-19 2018-10-19 [facility] [id number] [facility] 16:30:00 16:30:00 t [place] Dw[place]r s - Drive [facility] Medicine l Medicine Outpati ent Clinics 2018-10-01 2018-10-01 [facility] [id number] 13:52:00 13:52:00 t [place] Dw[place] - Drive [facility] Medicine l Medicine Outpati ent Clinics 2018-09-14 2018-09-14 [facility] [id number] [address] 08:34:00 08:34:[address] [place] - Drive [facility] Medicine l Medicine Outpati ent Clinics 2018-09-10 2018-09-10 [facility] [id number] [facility] 14:45:00 14:45:[address] [place] [place] - Drive [facility] Medicine l Medicine Outpati ent Clinics 2018-08-26 2018-08-26 [facility] [id number] 16:26:00 16:26:[address] [place] [address] [place] - Drive [facility] Medicine l Medicine Outpati ent Clinics 2018-08-25 2018-08-25 [facility] [id number] [facility] 10:00:00 10:00:[address] [place] [address] [place] - Drive [facility] Medicine l Medicine Outpati ent Clinics 2018-08-19 2018-08-19 [facility] [id number] [facility] 08:22:00 08:22:[address] [place] [address] [place] - Drive [facility] Medicine l Medicine Outpati ent Clinics 2018-07-16 2018-07-16 [facility] [id number] [facility] 13:00:00 13:00:[address] [place] [address] [place] - Drive [facility] Medicine l Medicine Outpati ent Clinics 2018-03-25 2018-03-25 [facility] [id number] [facility] 10:15:00 10:15:[address] [place] [address] [place] - Drive [facility] Medicine l Medicine Outpati ent Clinics 2018-02-03 2018-02-03 [facility] [id number] 09:02:00 09:02:[address] [place] [address] Luke [place] - Drive [facility] Medicine l Medicine Outpati ent Clinics 2018-01-23 2018-01-23 [facility] [id number] 10:00:00 10:00:[address] [place] [address] Luke s - Drive [facility] Medicine l Medicine Outpati ent Clinics 2017-12-23 2017-12-23 [facility] [id number] 10:30:00 10:30:[address] [place] [address] Luke s [facility] 2017-12-16 2017-12-16 [facility] [id number] 15:15:00 15:15:00 [facility] 2017-11-04 2017-11-04 [facility] [id number] 10:00:00 10:00:00 [facility] Results Test Description Test Time Test Comments [...] GH.........160-189 mg/dL VERY HIGH.........>/ = 190 mg/dL [id number] 08:02:00 Test Item Value Reference Range Interpretation [...] LDL (test MG/DL 0-99 code = LDL) [id number] 07:51:00 Test Item Value Reference Range Interpretation Comments MAGNESIUM (test code = MAG) 2.0 MG/DL 1.6-2.3 N PROTHROMBIN [id number] 07:37:00 Test Item Value Reference Range Interpretation [...] syste oscar embolism. 3.0 - 4.5 PTT [id number] 07:37:00 Test Item Value Reference Range Interpretation Comments PTT ACTIVATED (test code = APTT) 26.7 SECONDS 22.0-33.0 N [id number] 01:26:00 Test Item Value Reference Range Interpretation Comments TROPONIN-I (test code = TROPI) < 0.012 NG/ML 0.012-0.033 L HEPATIC FUNCTION [id number] 18:44:00 Test Item Value Reference Range Interpretation [...] 77 UNITS/L 38-126 N ALKP) BASIC METABOLIC [id number] 18:15:00 Test Item Value Reference Range Interpretation [...] code = 8.9 MG/DL 8.4-10.2 N CA) [id number] 18:15:00 Test Item Value Reference Range Interpretation Comments TROPONIN-I (test code = TROPI) < 0.012 NG/ML 0.012-0.033 L BASIC METABOLIC [id number] 18:03:00 Test Item Value Reference Range Interpretation [...] code = 8.9 MG/DL 8.4-10.2 N CA) [id number] 18:03:00 Test Item Value Reference Range Interpretation Comments TROPONIN-I (test code = TROPI) NG/ML 0.0-0.045 CBC W/O [id number] 17:39:00 Test Item Value Reference Range Interpretation [...]
[2020-09-02] MEDS ORDERED: MECLIZINE HCL 12.5 MG TAB ONE (18:45)
[2020-09-02] MEDS ORDERED: NA CHLORIDE 0.9% 500 ML ONE (18:45)
[2020-09-02] MEDS ORDERED: ONDANSETRON 4 MG/2 ML VIAL ONE (18:45)
[2020-09-02 18:52] LABS: Protime INR 1.03
[2020-09-02 18:54] LABS: Absolute Lymphocytes (CBC) 2.4 K/uL (0.7-4.9); Basophils % 0.6 % (0-1.3); Hematocrit 39.4 % (36.0-45.0); Lymphocytes % 42.9 % (15.3-44.8); MPV 9.4 fL (7.6-11.3)
[2020-09-02 19:03] LABS: Urine Bacteria >50 /HPF (<20); Urine RBC <5 /HPF (NONE SEEN)
[2020-09-02 19:04] LABS: Urine Blood 2+ (NEG); Urine Glucose NEGATIVE (NEG); Urine Protein NEGATIVE (NEG); Urine Specific Gravity 1.025 (1.005-1.030); Urine pH 5.5 (5.0-7.0)
[2020-09-02 19:06] LABS: ALT/SGPT 36 U/L (12-78); AST/SGOT 43 U/L (15-37); Albumin 3.7 g/dL (3.4-5.0); Alkaline Phosphatase 162 U/L (45-117); BUN Blood Urea Nitrogen 13 mg/dL (7-18); Bicarbonate 28 mmol/L (21-32); Bilirubin Direct 0.2 mg/dL (0-0.2); Bilirubin Total 0.8 mg/dL (0.2-1.0); Glucose Level 91 mg/dL (74-106); Lipase 83 U/L (73-393); Potassium 3.8 mmol/L (3.5-5.1); Sodium Level 143 mmol/L (136-145); Troponin (Emerg Dept Use Only) < 0.02 ng/mL (0.0-0.045)
--- NOTE | 2020-09-02 19:40 | RAD REPORT ---
EXAM DESCRIPTION: RAD - Chest Single View - 09/02/2020 6:44 pm CLINICAL HISTORY: dizziness Chest pain. COMPARISON: Chest Single View dated 01/27/2019; Abdomen 1 View (KUB) dated 01/27/2019; Chest Single View dated 07/30/2018; Chest Single View dated 04/30/2018 FINDINGS: Portable technique limits examination quality. The lungs are underinflated but grossly clear. The heart is mildly prominent size. No displaced fract ures. IMPRESSION: No acute intrathoracic process suspected.
[2020-09-02] MEDS ORDERED: CIPROFLOXACIN HCL 500 MG TAB ONE (20:02)
--- NOTE | 2020-09-02 20:24 | RAD REPORT ---
EXAM DESCRIPTION: CT - Head Brain Wo Cont - 09/02/2020 8:17 pm CLINICAL HISTORY: DIZZINESS Headache, drowsiness COMPARISON: Abdomen Pelvis W Contrast dated 04/13/2020Head Brain Wo Cont dated 12/15/2017; Head Bra in Wo Cont dated 09/09/2016 TECHNIQUE: All CT scans are performed using dose optimization technique as appropriate and may inclu de automated exposure control or mA/KV adjustment according to patient size. FINDINGS: No intracranial hemorrhage, hydrocephalus or extra-axial fluid collection.No areas of brai n edema or evidence of midline shift. The paranasal sinuses and mastoids are clear. The calvarium is intact. IMPRESSION: No acute intracranial abnormality.
--- NOTE | 2020-09-02 20:25 | RAD REPORT ---
EXAM DESCRIPTION: US - Abdomen Exam Limited - 09/02/2020 8:12 pm CLINICAL HISTORY: ABD PAIN COMPARISON: Abdomen Exam Complete dated 01/23/2016 FINDINGS: Cholecystectomy. The common bile duct is normal measuring 5 mm. The liver demonstrates diffuse fatty liver. IMPRESSION: Diffuse fatty liver. Cholecystectomy without biliary dilatation.
--- NOTE | 2020-09-02 20:36 | ER ---
Nurse's Notes [facility] Name: Toshia Barone Age: 65 yrs Sex: Female : 1955 Arrival Date: 09/02/2020 Time: 16:08 Bed 18 Private MD: Tonio Miller Diagnosis: Dizziness and giddiness;Urinary tract infection, site not specified;Weakness-General Presentation: 09/02 16:12 Chief complaint: Patient states: Fatigue, nausea, dizziness, body aches, slight cough ll1 for 4-5 days. Lots of BM's, but no diarrhea. Coronavirus screen: Client denies travel out of the [place] in the last 14 days. chills, cough unrelated to allergies, fatigue, muscle pain, nausea, runny nose, Client presents with at least one sign or symptom that may indicate coronavirus-19. Standard/surgical mask placed on the client. Ebola Screen: Patient denies travel to an Ebola-affected area in the 21 days before illness onset. Initial Sepsis Screen: Does the patient meet any 2 criteria? No. Patient's initial sepsis screen is negative. Does the patient have a suspected source of infection? Yes: Productive cough/pneumonia. Risk Assessment: Do you want to hurt yourself or someone else? Patient reports no desire to harm self or others. Onset of symptoms was August 29, 2020. 16:12 Method Of Arrival: Ambulatory ll1 16:12 Acuity: SHARON 3 ll1 Historical: - Allergies: 16:16 PENICILLINS; ll1 16:16 Reglan; ll1 16:16 methylphenidate HCl; ll1 16:16 Ritalin; ll1 - PMHx: 16:16 Kidney stones; CHF; Myocardial infarction; Hypothyroidism; GERD; B12 deficiency; fatty ll1 liver; CVA; TIA; Hypertension; Hyperlipidemia; DVT; COPD; Pancreatitis; - PSHx: 16:16 Hysterectomy; Lobectomy; ; ll1 - Immunization history:: Client reports receiving the 1st dose of the Covid vaccine, Flu vaccine is up to date. - Social history:: Smoking status: Patient denies any tobacco usage or history of. Screenin:38 Abuse screen: Denies threats or abuse. Denies injuries from another. Nutritional ss screening: No deficits noted. Tuberculosis screening: Never had TB. Fall Risk None identified. Assessment: 17:30 General: Appears in no apparent distress. Behavior is cooperative, appropriate for age. bw Pain: Complains of pain in while standing Pain currently is 4 out of 10 on a pain scale. Neuro: Reports dizziness, weakness Denies numbness. Cardiovascular: No deficits noted. Respiratory: No deficits noted. GI: Abdomen is non-distended, Bowel sounds present X 4 quads. Reports. : No deficits noted. 18:30 Reassessment: Patient appears in no apparent distress at this time. Patient and/or bw family updated on plan of care and expected duration. Pain level reassessed. Patient is alert, oriented x 3, equal unlabored respirations, skin warm/dry/pink. 19:15 Reassessment: Patient appears in no apparent distress at this time. Patient and/or jb4 family updated on plan of care and expected duration. Pain level reassessed. Patient is alert, oriented x 3, equal unlabored respirations, skin warm/dry/pink. 20:15 Reassessment: Patient appears in no apparent distress at this time. Patient and/or jb4 family updated on plan of care and expected duration. Pain level reassessed. Patient is alert, oriented x 3, equal unlabored respirations, skin warm/dry/pink. Vital Signs: 16:12 BP 171 / 82; Pulse 66; Resp 17; Temp 98.3; Pulse Ox 100% ; Weight 85.73 kg; Height 5 ll1 ft. 5 in. (165.10 cm); Pain 6/10; 18:00 BP 154 / 85; Pulse 61; Resp 18; Pulse Ox 100% on R/A; bw 20:30 BP 150 / 63; Pulse 63; Resp 18; Pulse Ox 100% on R/A; jb4 16:12 Body Mass Index 31.45 (85.73 kg, 165.10 cm) ll1 ED Course: 16:08 Patient arrived in ED. mr 16:08 Tonio Miller DO is Private Physician. mr 16:15 Triage completed. ll1 16:16 Arm band placed on. ll1 17:17 Juwan Hargrove PA is PHCP. cp 17:17 Akira Wang MD is Attending Physician. cp 17:25 Angie Ponce RN is Primary Nurse. bw 18:00 No provider procedures requiring assistance completed. bw 18:38 Patient has correct armband on for positive identification. Bed in low position. Call ss light in reach. Side rails up X 1. lunchroom monitor on. Pulse ox on. NIBP on. Warm blanket given. 18:38 Inserted saline lock: 22 gauge in right antecubital area, using aseptic technique. ss Blood collected. 18:43 XRAY Chest (1 view) In Process Unspecified. EDMS 18:45 IV discontinued, intact, bleeding controlled, Pressure dressing applied, swelling noted ll1 to site. 18:47 Inserted saline lock: 22 gauge in left forearm, using aseptic technique. Blood ll1 collected. 20:11 Ultrasound completed. Patient tolerated well. Notified INSURANCE COUNSEL/PA page. sg3 Administered Medications: 19:00 Drug: Meclizine 25 mg Route: PO; bw 21:02 Follow up: Response: No adverse reaction; Marked relief of symptoms jb4 19:15 Drug: Zofran (Ondansetron) 4 mg Route: IVP; Site: right antecubital; bw 21:02 Follow up: Response: No adverse reaction jb4 19:15 Drug: NS 0.9% 500 ml Route: IV; Rate: bolus; Site: right antecubital; bw 19:45 Follow up: Response: No adverse reaction; IV Status: Order to discontinue infusion; IV jb4 Intake: 250ml ; Discontinued per providers instructions after IV infiltration. 19:51 Drug: Cipro (ciprofloxacin) 500 mg Route: PO; jb4 21:01 Follow up: Response: No adverse reaction jb4 Intake: 19:45 IV: 250ml; Total: 250ml. jb4 Outcome: 20:36 Discharge ordered by . cp 21:06 Discharged to home ambulatory. jb4 21:06 Condition: stable 21:06 Discharge instructions given to patient, Instructed on discharge instructions, follow up and referral plans. medication usage, Demonstrated understanding of instructions, follow-up care, medications, Prescriptions given X 3. 21:07 Patient left the ED. jb4 Addendum: 09/06/2020 16:47 Addendum: Culture Results: Positive urine culture. No further action required. Bacteria s v sensitive to prescribed antibiotic. Signatures: Dispatcher [employer] [facility] Joan Kelly RN RN Ana M Watson mr Yamileth Jurado RN RN Juwan Hargrove PA PA cp Bryson, James, RN RN jb4 Melissa Quezada sg3 Per Baxter, RN RN ll1 Kris, Angie RN RN bw
--- NOTE | 2020-09-02 20:36 | EDPHYS ---
Physician Documentation [facility] Name: Toshia Barone Age: 65 yrs Sex: Female : 1955 Arrival Date: 09/02/2020 Time: 16:08 Bed 18 Private MD: [facility] ED Physician Akira Wang HPI: 09/02 17:30 This 65 yrs old Female presents to ER via Ambulatory with complaints of cp Nausea, Dizziness, Fatigue. 17:30 The patient presents to the emergency department with nausea, that is mild, loose cp stools. Onset: The symptoms/episode began/occurred 4-5 days. Associated signs and symptoms: Pertinent positives: fatigue, slight cough, dizziness, Pertinent negatives: abdominal pain, constipation, fever, chest pain. Historical: - Allergies: 16:16 PENICILLINS; ll1 16:16 Reglan; ll1 16:16 methylphenidate HCl; ll1 16:16 Ritalin; ll1 - PMHx: 16:16 Kidney stones; CHF; Myocardial infarction; Hypothyroidism; GERD; B12 deficiency; fatty ll1 liver; CVA; TIA; Hypertension; Hyperlipidemia; DVT; COPD; Pancreatitis; - PSHx: 16:16 Hysterectomy; Lobectomy; ; ll1 - Immunization history:: Client reports receiving the 1st dose of the Covid vaccine, Flu vaccine is up to date. - Social history:: Smoking status: Patient denies any tobacco usage or history of. ROS: 17:40 Constitutional: Positive for fatigue, Negative for body aches, chills, fever, poor PO cp intake. 17:40 Eyes: Negative for injury, pain, redness, and discharge. cp 17:40 ENT: Negative for drainage from ear(s), ear pain, sore throat, difficulty swallowing, difficulty handling secretions. 17:40 Cardiovascular: Negative for chest pain, edema, palpitations. 17:40 Respiratory: Positive for cough, with no reported sputum, Negative for shortness of breath, wheezing. 17:40 Abdomen/GI: Positive for nausea, Negative for abdominal pain, vomiting, constipation, black/tarry stool, rectal bleeding. 17:40 : Negative for urinary symptoms. 17:40 Neuro: Positive for dizziness, weakness, Negative for altered mental status, headache, syncope. 17:40 All other systems are negative. Exam: 17:45 Head/Face: Normocephalic, atraumatic. cp 17:45 Constitutional: The patient appears in no acute distress, alert, awake, non-diaphoretic, non-toxic, well developed, well nourished. 17:45 Eyes: Periorbital structures: appear normal, Pupils: equal, round, and reactive to cp light and accomodation, Extraocular movements: intact throughout, Conjunctiva: normal, no exudate, no injection, Sclera: no appreciated abnormality, Lids and lashes: appear normal, bilaterally. 17:45 ENT: External ear(s): are unremarkable, Nose: is normal, Mouth: Lips: moist, Oral mucosa: moist, Posterior pharynx: Airway: no evidence of obstruction, patent, swelling, is not appreciated, erythema, is not appreciated, exudate, is not appreciated. 17:45 Neck: ROM/movement: is normal, is supple, without pain, no range of motions limitations, no nuchal rigidity. 17:45 Chest/axilla: Inspection: normal, Palpation: is normal, no crepitus, no tenderness. 17:45 Cardiovascular: Rate: normal, Rhythm: regular, Edema: is not appreciated, JVD: is not appreciated. 17:45 Respiratory: the patient does not display signs of respiratory distress, Respirations: normal, no use of accessory muscles, no retractions, labored breathing, is not present, Breath sounds: are clear throughout, no decreased breath sounds, no stridor, no wheezing. 17:45 Abdomen/GI: Inspection: abdomen appears normal, Bowel sounds: active, all quadrants, Palpation: abdomen is soft and non-tender, in all quadrants, rebound tenderness, is not appreciated, voluntary guarding, is not appreciated, involuntary guarding, is not appreciated. 17:45 Skin: cellulitis, is not appreciated, no rash present. 17:45 Neuro: Orientation: to person, place \\T\\ time. Mentation: is normal, Cerebellar function: is grossly normal, Motor: moves all fours, strength is normal, Sensation: is normal. 19:30 ECG was reviewed by the Attending Physician. cp Vital Signs: 16:12 BP 171 / 82; Pulse 66; Resp 17; Temp 98.3; Pulse Ox 100% ; Weight 85.73 kg; Height 5 ll1 ft. 5 in. (165.10 cm); Pain 6/10; 18:00 BP 154 / 85; Pulse 61; Resp 18; Pulse Ox 100% on R/A; bw 20:30 BP 150 / 63; Pulse 63; Resp 18; Pulse Ox 100% on R/A; jb4 16:12 Body Mass Index 31.45 (85.73 kg, 165.10 cm) ll1 MDM: 17:24 Patient medically screened. cp 18:00 Differential diagnosis: pancreatitis, viral gastroenteritis, gastroenteritis, UTI, cp pneumonia. 20:30 Test interpretation: by ED physician or midlevel provider: ECG, plain radiologic cp studies. Counseling: I had a detailed discussion with the patient and/or guardian regarding: the historical points, exam findings, and any diagnostic results supporting the discharge/admit diagnosis, lab results, radiology results, to return to the emergency department if symptoms worsen or persist or if there are any questions or concerns that arise at home. 20:35 Data reviewed: vital signs, nurses notes, lab test result(s), EKG, radiologic studies, cp CT scan, plain films, ultrasound. 20:35 ED course: VSS. Patient reports symptoms improved. Will discharge to home for continued cp monitoring. 09/02 17:48 Order name: Lipase; Complete Time: 19:15 cp 09/02 17:48 Order name: Basic Metabolic Panel; Complete Time: 19:15 cp 09/02 19:15 Interpretation: Normal except: CL 109; GFR 86. cp 09/02 17:48 Order name: CBC with Diff; Complete Time: 19:15 cp 09/02 19:16 Interpretation: Normal except: MCV 85.8. cp 09/02 17:48 Order name: LFT's; Complete Time: 19:15 cp 09/02 19:16 Interpretation: Normal except: AST 43; ALK 162; GLOB 4.3; A/G 0.9. cp 09/02 17:48 Order name: Magnesium; Complete Time: 19:15 cp 09/02 17:48 Order name: PT-INR; Complete Time: 19:15 cp 09/02 17:48 Order name: Troponin (emerg Dept Use Only); Complete Time: 19:15 cp 09/02 17:48 Order name: XRAY Chest (1 view); Complete Time: 20:29 cp 09/02 20:29 Interpretation: Report review. cp 09/02 17:48 Order name: Urine Microscopic Only; Complete Time: 19:15 cp 09/02 19:18 Interpretation: Normal except: UWBC 5-10; UBACT >50; SQEPI 5-10. cp 09/02 18:48 Order name: Urine Dipstick--Ancillary (enter results); Complete Time: 19:15 mw2 09/02 19:33 Interpretation: Normal except: UBLD 2+; U NIT POSITIVE; UESTR TRACE. 09/02 19:04 Order name: Urine Culture EDUT 09/02 19:17 Order name: US Abdomen Limited: liver and galbladder cp 09/02 19:34 Order name: CT Head Brain wo Cont cp 09/02 20:34 Order name: COVID-19 : Document "Date of Symptom Onset" if Symptomatic. 09/02 17:18 Order name: Orthostatics; Complete Time: 19:27 cp 09/02 17:48 Order name: EKG; Complete Time: 17:49 cp 09/02 17:48 Order name: Cardiac monitoring; Complete Time: 18:12 cp 09/02 17:48 Order name: EKG - Nurse/Tech; Complete Time: 19:26 cp 09/02 17:48 Order name: IV Saline Lock; Complete Time: 19:16 cp 09/02 17:48 Order name: Labs collected and sent; Complete Time: 19:16 cp 09/02 17:48 Order name: O2 Per Protocol; Complete Time: 19:16 cp 09/02 17:48 Order name: O2 Sat Monitoring; Complete Time: 19:16 cp 09/02 17:48 Order name: Urine Dipstick-Ancillary (obtain specimen); Complete Time: 19:16 cp 09/02 20:25 Order name: CT; Complete Time: 20:29 EDUT 09/02 20:30 Interpretation: Report reviewed. 09/02 20:26 Order name: US; Complete Time: 20:29 EDMS 09/02 20:30 Order name: PO challenge; Complete Time: 21:01 cp EC:30 Rate is 60 beats/min. Rhythm is regular. WA interval is normal. QRS interval is normal. cp QT interval is normal. T waves are Inverted in leads I, II, V2, V3, V4, V5. Interpreted by me. Reviewed by me. Administered Medications: 19:00 Drug: Meclizine 25 mg Route: PO; bw 21:02 Follow up: Response: No adverse reaction; Marked relief of symptoms jb4 19:15 Drug: Zofran (Ondansetron) 4 mg Route: IVP; Site: right antecubital; bw 21:02 Follow up: Response: No adverse reaction jb4 19:15 Drug: NS 0.9% 500 ml Route: IV; Rate: bolus; Site: right antecubital; bw 19:45 Follow up: Response: No adverse reaction; IV Status: Order to discontinue infusion; IV jb4 Intake: 250ml ; Discontinued per providers instructions after IV infiltration. 19:51 Drug: Cipro (ciprofloxacin) 500 mg Route: PO; jb4 21:01 Follow up: Response: No adverse reaction jb4 Disposition: 09/02/20 20:36 Discharged to Home. Impression: Dizziness and giddiness, Urinary tract infection, site not specified, Weakness - General. - Condition is Stable. - Discharge Instructions: Dizziness, Urinary Tract Infection, Adult, Weakness. - Prescriptions for Cipro 500 mg Oral Tablet - take 1 tablet by ORAL route every 12 hours for 7 days; 14 tablet. Meclizine 25 mg Oral Tablet - take 1 tablet by ORAL route every 8 hours As needed; 30 tablet. Zofran 4 mg Oral Tablet - take 1 tablet by ORAL route every 12 hours As needed; 20 tablet. - Medication Reconciliation Form, Thank You Letter, Antibiotic Education, Prescription Opioid Use form. - Follow up: Private Physician; When: 2 - 3 days; Reason: Recheck today's complaints. - Problem is new. - Symptoms have improved. Addendum: 09/04/2020 05:21 Co-signature as Attending Physician, Akira Wang MD I agree with the assessment and t w4 plan of care. Signatures: Dispatcher [employer] EDMS Juwan Hargrove PA PA cp Bryson, James RN RN [email or web address] Akira Wang MD MD tw4 Per Baxter RN RN ll1 Angie Ponce RN RN Corrections: (The following items were deleted from the chart) 09/02 21:07 20:36 09/02/2020 20:36 Discharged to Home. Impression: Dizziness and giddiness; Urinary jb4 tract infection, site not specified; Weakness - General. Condition is Stable. Forms are Medication Reconciliation Form, Thank You Letter, Antibiotic Education, Prescription Opioid Use. Follow up: Private Physician; When: 2 - 3 days; Reason: Recheck today's complaints. Problem is new. Symptoms have improved. cp 09/03 17:38 09/02 20:30 Data reviewed: vital signs, nurses notes, lab test result(s), EKG, cp radiologic studies, CT scan, plain films, ultrasound, cp 09/03 18:34 09/02 17:30 Associated signs and symptoms: Pertinent positives: fatigue, slight cough, cp dizziness, cp
[2020-09-02 22:14] VITALS: TEMP 98.3; O2SAT 100
[2020-09-02 22:27] VITALS: BP 150/63
--- NOTE | 2020-09-03 10:22 | EKG ---
Test Date: 2020-09-02 Test Time: 19:22:20 Directional Survey Drafter: SHAHZAD MEASUREMENT RESULTS: Intervals: Rate: 60 TN: 134 QRSD: 74 QT: 430 QTc: 430 [place]: P: 5 TN: 134 QRS: 7 T: 138 INTERPRETIVE STATEMENTS: Normal sinus rhythm T wave abnormality, consider inferior ischemia T wave abnormality, consider anterolateral ischemia Abnormal ECG Compared to ECG 01/27/2019 12:06:34 No significant changes Electronically Signed On 09-03-20 10:21:22 CDT by Rohan Bañuelos
== END 2020-09-02 21:07 | disposition home or self-care (01) ==
LOC: ER 16:04
DX: N39.0 Urinary tract infection, site not specified (principal); R53.1 Weakness; I10 Essential (primary) hypertension; I25.2 Old myocardial infarction; Z88.0 Allergy status to penicillin; Z88.8 Allergy status to other drugs, medicaments and biological substances
CPT/HCPCS: 93005; 87088; 85025; 87086; 80048; 36415; 83735; 85610; 80076; 87077; 87186; 84484; 83690; 70450; 71045; 76705; 96374; 99284; J7040; J2405; 81003; 81015

== ENCOUNTER 2020-10-23 14:26 | Emergency (ER) | payer OTHER ==
--- OUTSIDE RECORDS SUMMARY | 2020-10-23 14:30 | XMS REPORT | Continuity of Care Document ---
:1955 Author Organization Formerly [facility] t Address [address] [place] [address] Care Team Providers Name Role Phone Sixto SALVADOR, S Attending Clinician Doctor Unassigned, Name Attending Clinician Unavailable Only, Test Attending Clinician Unavailable Pob, Lab Main Attending Clinician Unavailable Evangelista Go MD Attending Clinician Sixto SALVADOR S Admitting Clinician Payers Payer Name Policy Type Policy Number Effective Date Expiration Date S ource Problems This patient has no known problems. Allergies, Adverse Reactions, Alerts Allergy Allergy Status Severity Reaction(s) Onset Inactive Treating Comm ents Source Name Type Date Date Clinician [place]ic[place] DA Active [place] 2016-06 [facility] 07-[facility]: [address] metoclop DA Active [place] 2016-06 [facility] ramide 07-01 00:00: [address] Metoclop Adverse Active anxiety [facility] PCN Adverse Active hives [facility] Reaction [facility] Medications Ordered Filled Start Stop Current Ordering Indication Dosage Frequency Signature Comments Components Source Medication Medication Date Date Medication? Clinician (SIG) Name Name Scopolamine Scopolamine 2019- No Tonio [address] [facility] 02-18 Miller skin [facility] - 00:[facility]: [facility]:00 behind the Memori a 00 :00 ear as l needed [facility] Tamsulosin Tamsulosin 2019- No Tonio [address] [facility] HCl HCl 02-17 Miller [facility] 00 :00 l [facility] Nystatin Nystatin Yes Tonio 4 - [address] [facility] -11 Miller swish, [facility] - 00:[facility]: retain in Memoria 00 mouth as l long as Outpati possible ent then Clinics swallow Trelegy Trelegy Yes [facility] 1 puff [facility] Loratadine Loratadine Yes Tonio [address] [facility] Miller [facility] Vitamin B12 Vitamin B12 Yes Tonio [address] [facility] Miller [facility] Synthroid Synthroid Yes Tonio [address] [facility] Miller on an [facility] - empty [facility]oria stomach in l the [facility] ent Clinics Aspirin Aspirin Yes [facility]io TAKE [facility] TABLET BY [facility]TH [facility] EVERY DAY l [facility] Aspirin Low Aspirin Low Yes Tonio TAKE [address] [facility] Dose Dose Miller TABLET BY [facility] - M[facility]TH Memoria EVERY DAY l [facility] Atenolol Atenolol Yes Tonio TAKE [address] [facility] Miller TABLET BY [facility] - [facility]TH [facility]oria EVERY DAY l [facility] Nexium Nexium Yes Tonio TAKE ONE [facility] Miller CAPSULE BY [facility] - [facility]TH Memoria EVERY DAY l [facility] ProAir HFA ProAir HFA Yes Tonio [address] [facility] Miller needed [facility] Furosemide Furosemide Yes Tonio [address] [facility] Miller [facility] Venlafaxine Venlafaxine Yes Tonio TAKE ONE [facility] HCl ER HCl ER Miller CAPSULE BY Luke s - MOUTH Memoria EVERY DAY l [facility] Simvastatin Simvastatin Yes Tonio [address] [facility] Miller in the [facility] - evening Memoria l [facility] ent Clinics Simvastatin Simvastatin Yes Tonio [address] [facility] Miller in the [facility] - evening [facility]oria l [facility] ent Clinics Levothyroxi Levothyroxi Yes Tonio TAKE [address] [facility] ne Sodium ne Sodium Miller TABLET BY [facility] Aspirin Aspirin Yes Tonio TAKE [facility] TABLET BY [facility]TH [facility] EVERY DAY l [facility] Clinics Clopidogrel Clopidogrel Yes Tonio [address] [facility] Bisulfate Bisulfate Miller [facility] Promethazin Promethazin Yes Tonio [address] [facility] e HCl e HCl Miller needed [facility] ent [facility] Gabapentin Gabapentin Yes Tonio TAKE [address] [facility] Miller CAPSULE BY [facility]TH [facility]oria EVERY DAY l [facility] Zofran Zofran Yes Tonio 1 tablet [facility] as needed [facility] ent [facility] Docusate Docusate Yes Tonio TAKE [address] [facility] Sodium Sodium Miller CAPSULE BY Luke s - MOUTH Memoria TWICE A l DAY [facility] ent Clinics Spironolact Spironolact Yes Tonio TAKE [address] [facility] one one Miller TABLET BY [facility]TH Memoria EVERY DAY l [facility] ent Clinics Venlafaxine Venlafaxine Yes Tonio [address] [address] HCl ER HCl ER Miller with food [facility] ent [facility] Nasonex Nasonex Yes Tonio [address] [facility] Miller in each [facility] - nostril [facility] ent [facility] Hydrocodone Hydrocodone Yes Tonio [address] [facility] -Acetaminop -Acetaminop Miller as needed [facility] - hen hen [facility] ent [facility] Clotrimazol Clotrimazol Yes Tonio [address] [facility] [facility] e e Miller applicatio [facility] n [facility] ent [facility] Procedures This patient has no known procedures. Encounters Start End Encounter Admission Attending Care Care Encounter Source Date/Time Date/Time Type Type Clinicians Facility Department ID 2020-10-20 2020-10-20 [facility] [id number] [facility] 2020-10-18 2020-10-18 Out[facility] [id number] [facility] 2020-10-16 2020-10-16 [facility] [id number] 06:39:00 08:43:00 Encounter Tyler Bush [place] [id number] [place] [id number] Surgical [id number] [place] 07 2020-10-16 2020-10-16 Surgery [facility] [id number] 07:51:00 08:13:00 [place] [id number] [place] [id number] Surgical [id number] [place] 020 2020-10-16 2020-10-16 Orders Doctor [place] 1.2.840.114 [id number] 00:00:00 00:00:00 Only Unassigned, [id number] [facility] [id number] [id number] 2020-10-13 2020-10-13 Laboratory Only, Adc [facility] [id number] 09:49:03 10:04:03 Only Test [place] [id number] [place] [id number] [place] [id number] 2020-10-13 2020-10-13 Orders Doctor [place] 1.2.840.114 [id number] 00:00:00 00:00:00 Only Unassigned, STEVE [id number] [facility] [id number] 2020-10-05 2020-10-05 Outpatient [facility] [id number] [facility] 2020-10-03 2020-10-03 Out[facility] [id number] [facility] 2020-10-02 2020-10-02 [facility] [id number] 06:53:00 09:27:00 Encounter Tyler Bush Viviane [id number] [place] [id number] Surgical [id number] [place] 071 2020-10-02 2020-10-02 Surgery [facility] 1.2.840.114 [id number] 07:51:00 08:16:00 [place] [id number] [place] [id number] Surgical [id number] [place] 020 2020-10-02 2020-10-02 Orders Doctor ANGLE 1.2.840.114 [id number] 00:00:00 00:00:00 Only Unassigned, STEVE [id number] [place] [facility] [id number] [id number] 2020-09-29 2020-09-29 Laboratory Only, [facility] 1.2.840.114 [id number] 10:08:41 10:23:41 Only Test [place] [id number] Dar[place] [id number] Benedict [id number] 2020-09-27 2020-09-27 Neurosurgery Research Director Candace, [facility] 1.2.840.114 [id number] 14:35:00 14:50:00 Visit Lab Main [place] [id number] Dar[place] [id number] Professio [id number] [address] 2020-09-27 2020-09-27 Orders Doctor ANGLE 1.2.840.114 [id number] 00:00:00 00:00:00 Only Unassigned, STEVE [id number] [place] [address]686 [id number] [id number] 2020-07-07 2020-07-07 Office Donavan [facility] 1.2.840.114 [id number] 10:30:00 10:45:00 Visit Angle Viviane [id number] Evangelista Ramírez [id number] Professio [id number] [facility] 188 [facility] 2020-06-27 2020-06-27 Outpatient [facility] [id number] [facility] 2020-05-29 2020-05-29 Outpatient [facility] [id number] [facility] 2020-05-17 2020-05-17 Outpatient [facility] [id number] [facility] 2020-05-16 2020-05-16 Outpatient [facility] [id number] [facility] 2020-04-27 2020-04-27 Outpatient [facility] [id number] [facility] 2020-04-26 2020-04-26 Outpatient [facility] [id number] [facility] 2020-04-13 2020-04-13 Outpatient [facility] [id number] [facility] 2020-04-06 2020-04-06 Outpatient [facility] [id number] [facility] 2020-03-30 2020-03-30 Outpatient [facility] [id number] [facility] 2020-03-28 2020-03-28 Outpatient [facility] [id number] [facility] 2020-03-23 2020-03-23 Outpatient [facility] [id number] [facility] 2020-03-16 2020-03-16 Outpatient [facility] [id number] [facility] 2020-03-02 2020-03-02 [facility] [id number] [facility] 16:00:00 16:00:00 t [employer] [facility] Medicine l Medicine Outpati ent Clinics 2020-03-01 2020-03-01 [facility] [id number] 16:58:00 16:58:00 t [employer] [facility] l Medicine Outpati ent Clinics 2020-02-29 2020-02-29 [facility] [id number] [address] 09:32:00 09:32:00 t [employer] [facility] Medicine l Medicine Outpati ent Clinics 2020-02-19 2020-02-19 [facility] [id number] 11:43:00 11:43:00 t [place] [facility] Medicine Outpati ent Clinics 2020-02-18 2020-02-18 [facility] [id number] 14:30:00 14:30:00 t Specialty/U Elvira kes - Specialty rology Memori a /Urology Clinic l Clinic Outpati ent Clinics 2020-02-17 2020-02-17 [facility] [id number] 11:30:00 11:30:00 t Specialty/U Elvira kes - Specialty rology Memori a /Urology Clinic l Clinic Outpati ent Clinics 2019-12-24 2019-12-24 [facility] [id number] 09:32:00 09:32:00 t [employer] [facility] Medicine l Medicine Outpati ent Clinics 2019-12-13 2019-12-13 [facility] [id number] 11:45:00 11:45:00 t [facility] [employer] [facility] Medicine Outpati ent Clinics 2019-12-01 2019-12-01 [facility] [id number] 16:54:00 16:54:00 t [employer] [facility] Medicine Outpati ent Clinics 2019-11-25 2019-11-25 [facility] [id number] 16:55:00 16:55:00 t [employer] [employer] - [employer] [facility] Medicine l Medicine Outpati ent Clinics 2019-11-22 2019-11-22 [facility] [id number] 11:38:00 11:38:00 t [place] [employer] s - Drive [facility] Medicine l Medicine Outpati ent Clinics 2019-11-19 2019-11-19 [facility] [id number] 16:25:00 16:25:00 t [facility] [employer] [facility] Medicine l Medicine Outpati ent Clinics 2019-11-18 2019-11-18 [facility] [id number] 16:23:00 16:23:00 t [employer] [facility] l Medicine Outpati ent Clinics 2019-11-18 2019-11-18 [facility] [id number] 10:45:00 10:45:00 t [employer] [facility] l Medicine Outpati ent Clinics 2019-11-08 2019-11-08 [facility] [id number] 14:04:00 14:04:00 t [facility] l Medicine Outpati ent Clinics 2019-11-05 2019-11-05 [facility] [id number] 14:36:00 14:36:00 [facility] Medicine Outpati ent Clinics 2019-11-01 2019-11-01 [facility] [id number] 11:35:00 11:35:00 t [employer] [facility] Medicine l Medicine Outpati ent Clinics 2019-10-27 2019-10-27 [facility] [id number] 13:30:00 13:30:00 t [employer] [facility] Medicine l Medicine Outpati ent Clinics 2019-10-26 2019-10-26 [facility] [id number] 08:59:00 08:59:00 t [employer] [facility] Medicine l Medicine Outpati ent Clinics 2019-10-25 2019-10-25 [facility] [id number] 08:37:00 08:37:00 t [place] [employer] s - Drive [facility] Medicine l Medicine Outpati ent Clinics 2019-10-14 2019-10-14 [facility] [id number] 15:00:00 15:00:00 t [place] [employer] s - Drive [facility] Medicine l Medicine Outpati ent Clinics 2019-10-12 2019-10-12 [facility] [id number] 09:50:00 09:50:00 t [employer] s - Drive [facility] Medicine l Medicine Outpati ent Clinics 2019-09-17 2019-09-17 [facility] [id number] 08:05:00 08:05:00 t [employer] Drive [facility] l Medicine Outpati ent Clinics 2019-08-27 2019-08-27 [facility] [id number] 14:30:00 14:30:00 t Specialty/U Elvira kes - Specialty rology [facility] a /Urology Clinic l Clinic Outpati ent Clinics 2019-08-19 2019-08-19 [facility] [id number] 11:00:00 11:00:00 t [employer] [facility] l Medicine Outpati ent Clinics 2019-08-05 2019-08-05 [facility] [id number] 09:15:00 09:15:00 t [employer] [facility] Medicine l Medicine Outpati ent Clinics 2019-08-03 2019-08-03 [facility] [id number] 14:40:00 14:40:00 t [facility] [address] [employer] s - Road [facility] Medicine l Medicine Outpati ent Clinics 2019-07-29 2019-07-29 [facility] [id number] 13:23:00 13:23:00 t [employer] [facility] Medicine l Medicine Outpati ent Clinics 2019-07-19 2019-07-19 [facility] [id number] [facility] 13:59:00 13:59:00 t [employer] [address] [facility] Medicine l Medicine Outpati ent Clinics 2019-07-14 2019-07-14 [facility] [id number] 13:18:00 13:18:00 t [place] [employer] s - Drive [facility] Medicine Outpati ent Clinics 2019-07-06 2019-07-06 [facility] [id number] 10:00:00 10:00:00 t [place] [employer] s - Drive [facility] Medicine Outpati ent Clinics 2019-05-17 2019-05-17 [facility] [id number] [address] 13:30:00 13:30:00 t [employer] [facility] Medicine Outpati ent Clinics 2019-03-30 2019-03-30 [facility] [id number] 15:00:00 15:00:00 t Specialty/U Elvira kes - Specialty rology Memori a /Urology Clinic l Clinic Outpati ent Clinics 2019-03-23 2019-03-23 [facility] [id number] 08:47:00 08:47:00 t Specialty/U Elvira kes - Specialty rology Memori a /Urology Clinic l Clinic Outpati ent Clinics 2019-03-22 2019-03-22 [facility] [id number] 16:57:00 16:57:00 t [employer] [facility] Medicine Outpati ent Clinics 2019-03-17 2019-03-17 [facility] [id number] 09:45:00 09:45:00 t [facility] Medicine Medicine Outpati ent Clinics 2019-03-04 2019-03-04 [facility] [id number] 11:00:00 11:00:00 t Specialty/U Elvira kes - Specialty rology Memori a /Urology Clinic l Clinic Outpati ent Clinics 2019-03-01 2019-03-01 [facility] [id number] 11:00:00 11:00:00 t [place] [employer] s - Drive [facility] Medicine Outpati ent Clinics 2019-02-23 2019-02-23 [facility] [id number] 13:15:00 13:15:[address] Luke [address] - Drive [facility] Medicine l Medicine Outpati ent Clinics 2019-02-15 2019-02-15 [facility] [id number] 09:54:00 09:54:00 t Specialty/U Elvira kes - Specialty rology Memori a /Urology Clinic l Clinic Outpati ent Clinics 2019-02-08 2019-02-08 [facility] [id number] 13:00:00 13:00:00 t Specialty/U Elvira kes - Specialty rology Memori a /Urology Clinic l Clinic Outpati ent Clinics 2019-02-01 2019-02-01 [facility] [id number] 14:15:00 14:15:00 t Specialty/U Elvira kes - Specialty rology Memori a /Urology Clinic l Clinic Outpati ent Clinics 2019-01-27 2019-01-27 [facility] [id number] 10:00:00 10:00:[address] Luke [address] - Drive [facility] Medicine Outpati ent Clinics 2018-12-08 2018-12-08 [facility] [id number] 13:00:00 13:00:00 t [place] [employer] Luke s - Drive [facility] Medicine Outpati ent Clinics 2018-12-07 2018-12-07 [facility] [id number] 16:17:00 16:17:00 t [place] [employer] Luke s - Drive [facility] Medicine Outpati ent Clinics 2018-12-03 2018-12-03 [facility] [id number] 09:15:00 09:15:[address] Luke s - Drive [facility] Medicine Outpati ent Clinics 2018-10-19 2018-10-19 [facility] [id number] 16:30:00 16:30:[address] Luke s - Drive [facility] l Medicine Outpati ent Clinics 2018-10-01 2018-10-01 [facility] [id number] 13:52:00 13:52:[address] Luke s - Drive [facility] Medicine l Medicine Outpati ent Clinics 2018-09-14 2018-09-14 [facility] [id number] 08:34:00 08:34:[address] Luke s - Drive [facility] Medicine l Medicine Outpati ent Clinics 2018-09-10 2018-09-10 [facility] [id number] 14:45:00 14:45:00 t [place] [employer] Luke s - Drive [facility] l Medicine Outpati ent Clinics 2018-08-26 2018-08-26 [facility] [id number] 16:26:00 16:26:00 t [place] [employer] s - Drive [facility] Medicine Outpati ent Clinics 2018-08-25 2018-08-25 [facility] [id number] 10:00:00 10:00:00 t [place] [employer] s - Drive [facility] Medicine Outpati ent Clinics 2018-08-19 2018-08-19 [facility] [id number] 08:22:00 08:22:00 t [place] [employer] - Drive [facility] Medicine Medicine Outpati ent Clinics 2018-07-16 2018-07-16 [facility] [id number] 13:00:00 13:00:00 t [place] [employer] s - Drive [facility] Medicine l Medicine Outpati ent Clinics 2018-03-25 2018-03-25 [facility] [id number] 10:15:00 10:15:00 t [place] [employer] - Drive [facility] Medicine Medicine Outpati ent Clinics 2018-02-03 2018-02-03 [facility] [id number] [facility] 09:02:00 09:02:00 t [place] [employer] s - Drive [facility] Medicine Outpati ent Clinics 2018-01-23 2018-01-23 [facility] [id number] [facility] 10:00:00 10:00:00 t [place] [employer] s - Drive [facility] Medicine l Medicine Outpati ent Clinics 2017-12-23 2017-12-23 [facility] [id number] [facility] 10:30:00 10:30:00 [facility] 2017-12-16 2017-12-16 Outpatient Yann Lernert [id number] 15:15:00 15:15:00 [facility] 2017-11-04 2017-11-04 Outpatient Yann Lernert [id number] 10:00:00 10:00:00 [facility] Results Test Description Test Time Test Comments [...] GH.........160-189 mg/dL VERY HIGH.........>/ = 190 mg/dL [id number] 08:02:00 Test Item Value Reference Range Interpretation [...] LDL (test MG/DL 0-99 code = LDL) [id number] 07:51:00 Test Item Value Reference Range Interpretation Comments MAGNESIUM (test code = MAG) 2.0 MG/DL 1.6-2.3 N PROTHROMBIN [id number] 07:37:00 Test Item Value Reference Range Interpretation [...] syste oscar embolism. 3.0 - 4.5 PTT [id number] 07:37:00 Test Item Value Reference Range Interpretation Comments PTT ACTIVATED (test code = APTT) 26.7 SECONDS 22.0-33.0 N [id number] 01:26:00 Test Item Value Reference Range Interpretation Comments TROPONIN-I (test code = TROPI) < 0.012 NG/ML 0.012-0.033 L HEPATIC FUNCTION [id number] 18:44:00 Test Item Value Reference Range Interpretation [...] 77 UNITS/L 38-126 N ALKP) BASIC METABOLIC [id number] 18:15:00 Test Item Value Reference Range Interpretation [...] code = 8.9 MG/DL 8.4-10.2 N CA) [id number] 18:15:00 Test Item Value Reference Range Interpretation Comments TROPONIN-I (test code = TROPI) < 0.012 NG/ML 0.012-0.033 L BASIC METABOLIC [id number] 18:03:00 Test Item Value Reference Range Interpretation [...] code = 8.9 MG/DL 8.4-10.2 N CA) [id number] 18:03:00 Test Item Value Reference Range Interpretation Comments TROPONIN-I (test code = TROPI) NG/ML 0.0-0.045 CBC W/O [id number] 17:39:00 Test Item Value Reference Range Interpretation [...]
--- NOTE | 2020-10-23 15:19 | EDPHYS ---
Physician Documentation [facility] Name: Toshia Barone Age: 65 yrs Sex: Female : 1955 Arrival Date: 10/23/2020 Time: 14:29 Bed DIS6 Private MD: ED Physician Harvey Angel HPI: 10/23 15:15 This 65 yrs old Female presents to ER via Ambulatory with complaints of Insect ma2 Bite. 15:15 The complaints affect the left hamstring. Onset: The symptoms/episode began/occurred ma2 suddenly, 1 hour(s) ago. Associated signs and symptoms: Pertinent negatives nausea, rash, tingling. Severity of symptoms: At their worst the symptoms were very mild, in the emergency department the symptoms are unchanged. Historical: - Allergies: 15:07 methylphenidate HCl; em 15:07 PENICILLINS; em 15:07 Reglan; em 15:07 Ritalin; em - PMHx: 15:07 B12 deficiency; CHF; COPD; CVA; DVT; fatty liver; GERD; Hyperlipidemia; Hypertension; em Hypothyroidism; Kidney stones; Myocardial infarction; Pancreatitis; TIA; - PSHx: 15:07 Hysterectomy; Lobectomy; ; em - Immunization history:: Adult Immunizations up to date. - Social history:: Smoking status: Patient denies any tobacco usage or history of. Patient/guardian denies using alcohol, street drugs, The patient lives with family. - Family history:: not pertinent. ROS: 15:15 Constitutional: Negative for fever, chills, and weight loss. ma2 15:15 All other systems are negative. Exam: 15:15 Constitutional: This is a well developed, well nourished patient who is awake, alert, ma2 and in no acute distress. Chest/axilla: Normal chest wall appearance and motion. Nontender with no deformity. No lesions are appreciated. Cardiovascular: Regular rate and rhythm with a normal S1 and S2. No gallops, murmurs, or rubs. Normal PMI, no JVD. No pulse deficits. Respiratory: Lungs have equal breath sounds bilaterally, clear to auscultation and percussion. No rales, rhonchi or wheezes noted. No increased work of breathing, no retractions or nasal flaring. Abdomen/GI: Soft, non-tender, with normal bowel sounds. No distension or tympany. No guarding or rebound. No evidence of tenderness throughout. Skin: Warm, dry with normal turgor. Normal color with no rashes, no lesions, and no evidence of cellulitis. MS/ Extremity: small insect bite over on left posterior knee, no abscess or crepitations, no cellultis, otherwsie Pulses equal, no cyanosis. Neurovascular intact. Full, normal range of motion. Neuro: Awake and alert, GCS 15, oriented to person, place, time, and situation. Cranial nerves II-XII grossly intact. Motor strength 5/5 in all extremities. Sensory grossly intact. Cerebellar exam normal. Normal gait. Vital Signs: 15:03 Pulse 64; Resp 18; Temp 97.8; Pulse Ox 100% on R/A; Weight 82.1 kg; Height 5 ft. 5 in. em (165.10 cm); Pain 10/10; 15:03 BP 137 / 78; em 15:03 Body Mass Index 30.12 (82.10 kg, 165.10 cm) em MDM: 15:15 Patient medically screened. [facility] 15:15 Differential diagnosis: dislocation, contusion, abrasion, tendonitis. Data reviewed: [facility] vital signs, nurses notes. Counseling: I had a detailed discussion with the patient and/or guardian regarding: the historical points, exam findings, and any diagnostic results supporting the discharge/admit diagnosis, the presence of at least one elevated blood pressure reading (>120/80) during this emergency department visit, the need for outpatient follow up. Response to treatment: the patient's symptoms have markedly improved after treatment. Administered Medications: 16:09 Drug: TORadol (ketorolac) 60 mg Route: IM; Site: right gluteus; em 16:09 Follow up: Response: Medication administered at discharge. em 16:09 Drug: Clindamycin 300 mg Route: PO; em 16:10 Follow up: Response: Medication administered at discharge. em Disposition: 10/23/20 15:18 Discharged to Home. Impression: Cellulitis and acute lymphangitis of other parts of limb - left LE. - Condition is Stable. - Discharge Instructions: Cellulitis, Adult. - Prescriptions for Clindamycin HCl 300 mg Oral Capsule - take 1 capsule by ORAL route every 6 hours for 10 days; 40 capsule. Diclofenac Sodium 75 mg Oral Tablet Sustained Release - take 1 tablet by ORAL route 2 times per day; 30 tablet. - Medication Reconciliation Form, Thank You Letter, Antibiotic Education, Prescription Opioid Use form. - Follow up: Private Physician; When: Tomorrow; Reason: Continuance of care. Signatures: Zane Britton RN Harvey Samuel MD MD ma2 Corrections: (The following items were deleted from the chart) 16:12 15:18 10/23/2020 15:18 Discharged to Home. Impression: Cellulitis and acute em lymphangitis of other parts of limb - left LE. Condition is Stable. Forms are Medication Reconciliation Form, Thank You Letter, Antibiotic Education, Prescription Opioid Use. Follow up: Private Physician; When: Tomorrow; Reason: Continuance of care. ma2
--- NOTE | 2020-10-23 15:19 | ER ---
Nurse's Notes [facility] Name: Toshia Barone Age: 65 yrs Sex: Female : 1955 Arrival Date: 10/23/2020 Time: 14:29 Bed DIS6 Private MD: Diagnosis: Cellulitis and acute lymphangitis of other parts of limb-left LE Presentation: 10/23 15:03 Chief complaint: Patient states: abscess to the back of the right hamstring, thinks it em could be staph infection, denies fever. Coronavirus screen: Client denies travel out of the [place] in the last 14 days. Ebola Screen: Patient negative for fever greater than or equal to 101.5 degrees Fahrenheit, and additional compatible Ebola Virus Disease symptoms Patient denies exposure to infectious person. Patient denies travel to an Ebola-affected area in the 21 days before illness onset. No symptoms or risks identified at this time. Initial Sepsis Screen: Does the patient meet any 2 criteria? No. Patient's initial sepsis screen is negative. Does the patient have a suspected source of infection? Yes: Skin breakdown/wound. Risk Assessment: Do you want to hurt yourself or someone else? Patient reports no desire to harm self or others. Onset of symptoms was October 23, 2020. 15:03 Method Of Arrival: Ambulatory em 15:03 Acuity: SHARON 5 em Historical: - Allergies: 15:07 methylphenidate HCl; em 15:07 PENICILLINS; em 15:07 Reglan; em 15:07 Ritalin; em - PMHx: 15:07 B12 deficiency; CHF; COPD; CVA; DVT; fatty liver; GERD; Hyperlipidemia; Hypertension; em Hypothyroidism; Kidney stones; Myocardial infarction; Pancreatitis; TIA; - PSHx: 15:07 Hysterectomy; Lobectomy; ; em - Immunization history:: Adult Immunizations up to date. - Social history:: Smoking status: Patient denies any tobacco usage or history of. Patient/guardian denies using alcohol, street drugs, The patient lives with family. - Family history:: not pertinent. Screenin:03 Abuse screen: Denies threats or abuse. Nutritional screening: No deficits noted. em Tuberculosis screening: No symptoms or risk factors identified. Fall Risk None identified. Assessment: 15:03 General: Appears in no apparent distress. uncomfortable, Behavior is calm, cooperative, em appropriate for age. Pain: Complains of pain in left hamstring Pain currently is 10 out of 10 on a pain scale. Neuro: Level of Consciousness is awake, alert, obeys commands, Oriented to person, place, time, situation, Appropriate for age. Cardiovascular: Capillary refill < 3 seconds Patient's skin is warm and dry. Respiratory: Airway is patent Respiratory effort is even, unlabored, Respiratory pattern is regular, symmetrical. Derm: Skin is intact, is healthy with good turgor, Skin is pink, warm \T\ dry. Wound noted left hamstring. Musculoskeletal: Capillary refill < 3 seconds, Range of motion: intact in all extremities. Vital Signs: 15:03 Pulse 64; Resp 18; Temp 97.8; Pulse Ox 100% on R/A; Weight 82.1 kg; Height 5 ft. 5 in. em (165.10 cm); Pain 10/10; 15:03 BP 137 / 78; em 15:03 Body Mass Index 30.12 (82.10 kg, 165.10 cm) em ED Course: 14:29 Patient arrived in ED. ds1 15:03 Patient has correct armband on for positive identification. Adult w/ patient. em 15:06 Triage completed. em 15:07 Arm band placed on. em 15:15 Harvey Angel MD is Attending Physician. ma2 15:33 Zane Britton, RN is Primary Nurse. em 15:34 No provider procedures requiring assistance completed. Patient did not have IV access em during this emergency room visit. Administered Medications: 16:09 Drug: TORadol (ketorolac) 60 mg Route: IM; Site: right gluteus; em 16:09 Follow up: Response: Medication administered at discharge. em 16:09 Drug: Clindamycin 300 mg Route: PO; em 16:10 Follow up: Response: Medication administered at discharge. em Outcome: 15:18 Discharge ordered by . ma2 16:10 Discharged to home ambulatory. em 16:10 Condition: stable 16:10 Discharge instructions given to patient, Instructed on discharge instructions, follow up and referral plans. medication usage, Demonstrated understanding of instructions, follow-up care, medications, Prescriptions given X 2. 16:12 Patient left the ED. em Signatures: Zane Britton, RN RN em Karuna Fitzgerald ds1 Harvey Angel, MD ma2
[2020-10-23 16:17] VITALS: BP 137/78; TEMP 97.8; O2SAT 100
[2020-10-23] MEDS ORDERED: KETOROLAC 30 MG/ML INJ ONE (16:22)
== END 2020-10-23 16:12 | disposition home or self-care (01) ==
LOC: ER 14:26
DX: L03.116 Cellulitis of left lower limb (principal); L03.126 Acute lymphangitis of left lower limb; I10 Essential (primary) hypertension; I25.2 Old myocardial infarction; Z88.0 Allergy status to penicillin; Z88.8 Allergy status to other drugs, medicaments and biological substances
CPT/HCPCS: 96372; 99283

== ENCOUNTER 2021-08-20 15:59 | Emergency (ER) | payer OTHER ==
--- OUTSIDE RECORDS SUMMARY | 2021-08-20 16:05 | XMS REPORT | Continuity of Care Document ---
:1955 Author Organization [facility] t Address [address] [place] [address] Care Team Providers Name Role Phone Mateus Miller Primary Care Physician Mateus Miller Attending Clinician Unavailable Cathi VAZQUEZ Attending Clinician Only, Test Attending Clinician Unavailable Sixto SALVADOR S Attending Clinician Doctor Unassigned, Name Attending Clinician Unavailable Pob, Lab Main Attending Clinician Unavailable Donavan SALVADOR, Evangelista Attending Clinician Kalyn_Mohan Attending Clinician Unavailable Sixto SALVADOR S Admitting Clinician Kalyn_Mohan Admitting Clinician Unavailable Payers Payer Name Policy Type Policy Number Effective Date Expiration Date [facility] [id number] 2013 COMMUNITY PLAN - 00:00:00 [facility] PLUS (MEDICAID HMO) Problems Condition Condition Condition Status Onset Resolution Last Treating Co mments Source Name Details Category Date Date Treatment Clinician Date Restless Restless Disease Active Unive rs legs legs 9-21 ity of 00:00: [place] 00 Medical Branch Varicose Varicose Disease Active Unive rs veins of veins of 9-21 ity of lower lower 00:00: [place] extremity extremity 00 Medi jesus Branch Right Right Disease Active Overview: Univer s ureteral ureteral 3-31 Formattin ity of stone stone 00:00: g of this [place] 00 note Medical might be Branch different from the original. Added automatic ally from request for surgery [id number] Obesity Obesity Disease Active Univers (BMI (BMI 3-20 ity of 30-39.9) 30-39.9) 00:00: [place] 00 Medical Branch Pyelonephr Pyelonephr Disease Active U nivers itis itis 3-20 ity of 00:00: Medical Branch Hemorrhoid Hemorrhoid Disease Active Overview : Univers s, s, 8-28 Formattin ity of unspecifie unspecifie 00:00: g of this [place] d d 00 note Medical hemorrhoid hemorrhoid might be Branch type type different from the original. Added automatic ally from request for surgery [id number] Seizure Seizure Disease Active Univers 8-14 ity of 00:00: [place] 00 Medical Branch Chest Chest Disease Active Univers pain, pain, 4-04 ity of atypical atypical 00:00: [place] 00 Medical Branch Chronic Chronic Disease Active Univers confusion confusion 4-04 ity of 00:00: [place] [facility] Adrenal Adrenal Disease Active Univers insufficie insufficie 1-28 it y of ncy ncy 00:00: [place] 00 Medical Branch Hypothyroi Hypothyroi Disease Active U nivers dism dism 1-28 ity of (acquired) (acquired) 00:[place] [facility] Unstable Unstable Disease Active Unive rs angina angina 1-27 ity of 00:00: [place] 00 Medical Branch Dyspnea Dyspnea Disease Active Univers 1-26 ity of 00:00: [place] [facility] Personal Personal Disease Active Unive rs history of history of 3-22 it y of transient transient 00:[place] ischemic ischemic 00 Medica l attack attack Branch (TIA), and (TIA), and cerebral cerebral infarction infarction without without residual residual deficits deficits History of History of Disease Active U nivers stroke stroke 09-11 ity of 00:00: [place] 00 Medical Branch Hypertensi Hypertensi Disease Active U nivers on on 09-11 ity of 00:00: Medical Branch Cerebrovas Cerebrovas Disease Active U nivers cular cular 09-11 ity of accident accident 00:00: [place] of right 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 Chronic Chronic Disease Active Univers coronary coronary 09-11 ity of artery artery 00:00: [place] disease disease 00 Medical Branch DM DM Disease Active Univers (diabetes (diabetes 09-11 ity of mellitus) mellitus) 00:00: [place] 00 [place] Cervical Cervical Disease Active Unive rs spondylosi spondylosi 6-15 it y of s without s without 00:00: [place] myelopathy myelopathy 00 Me dical Branch Displaceme Displaceme Disease Active U nivers nt of nt of 6-15 ity of lumbar lumbar 00:00: [place] interverte interverte 00 Me dical bral disc bral disc Bran ch without without myelopathy myelopathy 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 ICD10 Diagnosis Term It Business Systems Analyst Utility Chronic Chronic Disease Active Univers depressive depressive 14 it y of personalit personalit 00:00[place] disorder y disorder 00 Me dical Branch Anxiety Anxiety Disease Active Overview: Univ ers state state -14 Formattin ity of 00:00: g of this note Medical might be Branch different from the original. ICD10 Diagnosis Term It Business Systems Analyst Utility Insomnia Insomnia Disease Active Overview: Un jackie -14 Formattin ity of 00:00: g of this [place] note Medical might be Branch different from the original. ICD10 Diagnosis Term It Business Systems Analyst Utility Other Other Disease Active Univers chest pain chest pain -17 it y of 00:00: [place] 00 Medical Branch Essential Essential Disease Active Uni vers hypertensi hypertensi -17 it y of on, benign on, benign 00:00: [place] [facility] [place] HLD HLD Disease Active Overview: Univer s (hyperlipi (hyperlipi -17 Formattin ity of demia) demia) 00:00: g of this [place] 00 note Medical might be Branch different from the original. ICD10 Diagnosis Term It Business Systems Analyst Utility gerd gerd Disease Active Univers - ity of 00:00: [place] 00 Medical Branch Chronic Chronic Disease Active Overview: Univ ers obstructiv obstructiv 07-09 Formattin ity of e airway e airway 00:00: g of this [place] disease disease 00 note Medical with with might be Branch asthma asthma different from the original. ICD10 Diagnosis Term It Business Systems Analyst Utility Allergies, Adverse Reactions, Alerts Allergy Allergy Status Severity Reaction(s) Onset Inactive Treating Comm ents Source Name Type Date Date Clinician Penicill DA Active [place] 2016-06 [facility] 07-01 [place] 00:[facility]: [address] metoclop DA Active [place] 2016-06 [facility] ramide 07-01 00:00: [address] Metoclop Propensi Active Anxiety Unive rs ramide ty to 7-01 ity of Hcl adverse 00:00: [place] reaction Medical s Branch Penicill Propensi Active Rash Univer s ins ty to 4-15 ity of adverse 00:00: [place] reaction Medical s Branch Methylph Propensi Active Anxiety Unive rs enidate ty to 4-15 ity of adverse 00:00: [place] reaction 00 Medical s Branch Metoclop Adverse Active anxiety [facility] PCN Adverse Active hives [facility] Social History Social Habit Start Date Stop Date Quantity Comments Source History of Cigarette Smoker Universi ty of tobacco use [facility] Exposure to Not sure University of SARS-CoV-2 [facility] (event) [place] Alcohol intake 2021-07-03 2021-07-03 0 /d University of 00:00:00 00:00:00 [place] [facility] Education 2019-09-10 2019-09-10 10 University of 00:00:00 00:00:00 [place] [facility] History [facility] 2019-09-10 2019-09-10 4 University o f Financial 00:00:00 00:00:00 [place] [facility] History [facility] Food 2019-09-10 2019-09-10 1 Univers ity of Worry 00:00:00 00:00:00 [place] [facility] History [facility] Food 2019-09-10 2019-09-10 1 Univers ity of Scarcity 00:00:00 00:00:00 [place] [facility] History [facility] 2019-09-10 2019-09-10 2 University o f Transport Med 00:00:00 00:00:00 [place] Medic al Branch History [facility] 2019-09-10 2019-09-10 2 University o f Transport Non-Med 00:00:00 00:00:00 [facility] edical Branch Tobacco Comment 2017-02-03 2017-02-03 received fact Univer sity of 00:00:00 00:00:[address] [facility] stopping smoking Branch Tobacco use and 2015-08-21 2015-08-21 Never used Universit y of exposure 00:00:00 00:00:00 [facility] Sex Ass[birth year] At [birth year] Universit y of 00:00:00 00:00:00 [facility] Smoking Status Start Date Stop Date Source Former smoker 2015-08-21 00:00:00 2015-08-21 00:00:00 Universi ty of [place] [facility] [place] Medications Ordered Filled Start Stop Current Ordering Indication Dosage Frequency Signature Comments Components Source Medication Medication Date Date Medication? Clinician (SIG) Name Name budesonide- Yes 2{puff} Inhale 2 Univers formoterol 2-01 Puffs 2 ity of (SYMBICORT) 14:26: (two) [place] 160-4.5 39 times Medical mcg/actuati daily. Branch on inhaler clopidogreL Yes 75mg Take 75 mg Univers (PLAVIX) 75 2-01 by mouth ity of mg tablet 14:26: daily. [place] 39 Medical Branch budesonide- Yes 2{puff} Inhale 2 Univers formoterol 2-01 Puffs 2 ity of (SYMBICORT) 14:26: (two) [place] 160-4.5 39 times Medical mcg/actuati daily. Branch on inhaler clopidogreL Yes 75mg Take 75 mg Univers (PLAVIX) 75 2-01 by mouth ity of mg tablet 14:26: daily. [place] 39 Medical Branch nystatin 2021-0 Yes [id number] Apply to Univers 100,000 2-01 area(s) 2 ity of unit/gram 00:00: (two) [place] cream 00 times Medical daily. Branch nystatin 2021-0 Yes [id number] Apply to Univers 100,000 2-01 area(s) 2 ity of unit/gram 00:00: (two) [place] cream 00 times Medical daily. Branch esomeprazol Yes 40mg Take 40 mg Univers e (NEXIUM) 1-10 by mouth ity o f 40 mg 08:18: daily. [place] capsule 50 Medical Branch nitroglycer [address] 0[address]4 U nivers in 1-10 mg under ity of (NITROSTAT) 08:18: the tongue [place] 0.4 mg 50 every 5 Medical sublingual (five) Branch tablet minutes as needed for Chest pain. mometasone Yes 1{spray Use 1 Uni vers (NASONEX) 1-10 } [place] in ity of 50 08:18: each [place] mcg/actuati 50 nostril. Medi jesus on nasal Branch spray ergocalcife 0 Yes Take by Un jackie rol, 1-10 mouth. ity of vitamin D2, 08:18: [place] (VITAMIN D 50 Medical ORAL) Branch esomeprazol Yes 40mg Take 40 mg Univers e (NEXIUM) 1-10 by mouth ity o f 40 mg 08:18: daily. [place] capsule 50 Medical Branch nitroglycer [address] 0.4 U nivers in 1-10 mg under ity of (NITROSTAT) 08:18: the tongue [place] 0.4 mg 50 every 5 Medical sublingual (five) Branch tablet minutes as needed for Chest pain. mometasone 2021-0 Yes 1{spray Use 1 Uni vers (NASONEX) 1-10 } [place] in ity of 50 08:18: each [place] mcg/actuati 50 nostril. Medi jesus on nasal Branch spray ergocalcife Yes Take by Un jackie rol, 1-10 mouth. ity of vitamin D2, 08:18: [place] (VITAMIN D 50 Medical ORAL) Branch PARoxetine Yes [id number] 10mg Take 1 Univers (PAXIL) 10 1-06 tablet by ity of mg tablet 00:00: mouth [place] 00 daily. Medical Branch oxybutynin Yes [id number] 5mg Take 1 Univers XL 5 mg 24 1-06 tablet by ity of hr tablet 00:00: mouth [place] 00 daily. Medical Branch PARoxetine Yes [id number] 10mg Take 1 Univers (PAXIL) 10 1-06 tablet by ity of mg tablet 00:00: mouth [place] 00 daily. Medical Branch oxybutynin Yes [id number] 5mg Take 1 Univers XL 5 mg 24 1-06 tablet by ity of hr tablet 00:00: mouth [place] 00 daily. Medical Branch estradioL Yes [id number] 1g Insert 1 g Univers 0.01 % (0.1 8-19 into ity of mg/gram) 00:00: vagina [place] vaginal 00 weekly. Medical cream Pea size Branch In the labia/vagi na every night for 6 weeks then 3 times a week estradioL Yes [id number] 1g Insert 1 g Univers 0.01 % (0.1 8-19 into ity of mg/gram) 00:00: vagina [place] vaginal 00 weekly. Medical cream Pea size Branch In the labia/vagi na every night for 6 weeks then 3 times a week esomeprazol Yes 40mg Take 40 mg Univers e (NEXIUM) 5-06 by mouth ity o f 40 mg 19:21: daily. [place] capsule 16 Medical Branch budesonide- Yes 2{puff} Inhale 2 Univers formoterol 5-06 Puffs 2 ity of (SYMBICORT) 19:21: (two) [place] 160-4.5 16 times Medical mcg/actuati daily. Branch on inhaler nitroglycer Yes .4mg Place 0.4 U nivers in 5-06 mg under ity of (NITROSTAT) 19:21: the tongue [place] 0.4 mg 16 every 5 Medical sublingual (five) Branch tablet minutes as needed for Chest pain. mometasone Yes 1{spray Use 1 Uni vers (NASONEX) 5-06 } [place] in ity of 50 19:21: each [place] mcg/actuati 16 nostril. Medi jesus on nasal Branch spray clopidogrel Yes 75mg Take 75 mg Univers (PLAVIX) 75 5-06 by mouth ity of mg tablet 19:21: daily. [place] 16 Medical Branch esomeprazol Yes 40mg Take 40 mg Univers e (NEXIUM) 5-06 by mouth ity o f 40 mg 19:21: daily. [place] capsule 16 Medical Branch budesonide- Yes 2{puff} Inhale 2 Univers formoterol 5-06 Puffs 2 ity of (SYMBICORT) 19:21: (two) [place] 160-4.5 16 times Medical mcg/actuati daily. Branch on inhaler nitroglycer Yes .4mg Place 0.4 U nivers in 5-06 mg under ity of (NITROSTAT) 19:21: the tongue [place] 0.4 mg 16 every 5 Medical sublingual (five) Branch tablet minutes as needed for Chest pain. mometasone Yes 1{spray Use 1 Uni vers (NASONEX) 5-06 } [place] in ity of 50 19:21: each [place] mcg/actuati 16 nostril. Medi jesus on nasal Branch spray clopidogrel Yes 75mg Take 75 mg Univers (PLAVIX) 75 5-06 by mouth ity of mg tablet 19:21: daily. [place] 16 Medical Branch ergocalcife Yes Take by Un jackie rol, 4-26 mouth. ity of vitamin D2, 13:56: [place] (VITAMIN D 06 Medical ORAL) Branch ergocalcife Yes Take by Un jackie rol, 4-26 mouth. ity of vitamin D2, 13:56: [place] (VITAMIN D 06 Medical ORAL) Branch Scopolamine Scopolamine 2019- No [place] [address] [facility] 02[facility]18 [facility] - 00[facility]: [facility] behind the [facility] 00 :00 ear as l needed Outpati ent Clinics Tamsulosin Tamsulosin 2019- No [place] [address] [facility] HCl HCl 02-17 [facility] - 00:[facility]: [facility] 00 :[facility] l [facility]pati ent Clinics Nystatin Nystatin 2020-0 Yes [place] 4 - [address] [facility] [facility] 5-11 [facility] - 00:00: retain in [facility]oria 00 mouth as l long as Outpati possible ent then Clinics swallow oxybutynin 2020-0 Yes Right 5mg Take 1 Univ ers chloride 5 4-02 ureteral tablet by ity of mg tablet 00:00: [place] mouth 3 [place] 00 (three) Medical times Branch daily as needed for Bladder spasms. For bladder spasms or stent pain. nitrofurant 2020-0 Yes Acute 50mg Take 1 Uni vers oin 50 mg 4-02 cystitis capsule by ity of capsule 00:00: without mouth [place] 00 hematuria every 6 Medical (six) Branch hours. oxybutynin 2020-0 Yes Right 5mg Take 1 Univ ers chloride 5 4-02 ureteral tablet by ity of mg tablet 00:00: stone mouth 3 [place] 00 (three) Medical times Branch daily as needed for Bladder spasms. For bladder spasms or stent pain. nitrofurant 2020-0 Yes Acute 50mg Take 1 Uni vers oin 50 mg 4-02 cystitis capsule by ity of capsule 00:00: without mouth [place] 00 hematuria every 6 Medical (six) Branch hours. oxybutynin 2020-0 Yes Right 5mg Take 1 Univ ers chloride 5 3-26 ureteral tablet by ity of mg tablet 00:00: [place] mouth 3 [place] 00 (three) Medical times Branch daily. For bladder spasms or stent pain. tamsulosin 2020-0 Yes Right .4mg Take 1 Univ ers 0.4 mg 24 3-26 ureteral capsule by ity of hr capsule 00:00: stone mouth [place] 00 daily. Medical Branch oxybutynin 2020-0 Yes Right 5mg Take 1 Univ ers chloride 5 3-26 ureteral tablet by ity of mg tablet 00:00: [place] mouth 3 [place] 00 (three) Medical times Branch daily. For bladder spasms or stent pain. tamsulosin 2020-0 Yes Right .4mg Take 1 Univ ers 0.4 mg 24 3-26 ureteral capsule by ity of hr capsule 00:00: stone mouth [place] 00 daily. Medical Branch tamsulosin 2020-0 Yes [id number] .4mg Take 1 U nivers 0.4 mg 24 3-26 capsule by ity of hr capsule 00:00: mouth [place] 00 daily. Medical Branch tamsulosin 2020-0 Yes [id number] .4mg Take 1 U nivers 0.4 mg 24 3-26 capsule by ity of hr capsule 00:00: mouth [place] 00 daily. Medical Branch ketorolac 2020-0 Yes Pyelonephri 10mg Take 1 Univers 10 mg 3-22 tis tablet by ity of tablet 00:00: mouth [place] 00 every 6 Medical (six) Branch hours as needed for Pain (scale 7-10) (ONLY WHEN IN breakthrou gh PAIN, avoid use if pain tolerable) . ondansetron 2020-0 Yes Pyelonephri 4mg Take 1 Univers 4 mg tablet 3-22 tis tablet by ity of 00:00: mouth [place] 00 every 8 Medical (eight) Branch hours as needed for Nausea and Vomiting (N/V). ketorolac 2020-0 Yes Pyelonephri 10mg Take 1 Univers 10 mg 3-22 tis tablet by ity of tablet 00:00: mouth [place] 00 every 6 Medical (six) Branch hours as needed for Pain (scale 7-10) (ONLY WHEN IN breakthrou gh PAIN, avoid use if pain tolerable) . ondansetron 2020-0 Yes Pyelonephri 4mg Take 1 Univers 4 mg tablet 3-22 tis tablet by ity of 00:00: mouth [place] 00 every 8 Medical (eight) Branch hours as needed for Nausea and Vomiting (N/V). ketorolac 2020-0 Yes [id number] 10mg Take 1 Un jackie 10 mg 3-22 tablet by ity of tablet 00:00: mouth [place] 00 every 6 Medical (six) Branch hours as needed for Pain (scale 7-10) (ONLY WHEN IN breakthrou gh PAIN, avoid use if pain tolerable) . ondansetron 2020-0 Yes [id number] 4mg Take 1 Univers 4 mg tablet 3-22 tablet by ity of 00:00: mouth [place] 00 every 8 Medical (eight) Branch hours as needed for Nausea and Vomiting (N/V). ketorolac 2020-0 Yes [id number] 10mg Take 1 Un jackie 10 mg 3-22 tablet by ity of tablet 00:00: mouth [place] 00 every 6 Medical (six) Branch hours as needed for Pain (scale 7-10) (ONLY WHEN IN breakthrou gh PAIN, avoid use if pain tolerable) . ondansetron 2020-0 Yes [id number] 4mg Take 1 Univers 4 mg tablet 3-22 tablet by ity of 00:00: mouth [place] 00 every 8 Medical (eight) Branch hours as needed for Nausea and Vomiting (N/V). furosemide 2020-0 Yes 40mg Take 40 mg U nivers 40 mg 1-03 by mouth ity of tablet 00:00: daily. Medical Branch furosemide 2020-0 Yes 40mg Take 40 mg U nivers 40 mg 1-03 by mouth ity of tablet 00:00: daily. Medical Branch furosemide 2020-0 Yes 40mg Take 40 mg U nivers 40 mg 1-03 by mouth ity of tablet 00:00: daily. Medical Branch furosemide 2020-0 Yes 40mg Take 40 mg U nivers 40 mg 1-03 by mouth ity of tablet 00:00: daily. Medical Branch psyllium-callaway 2018-06 Yes Hemorrhoids 1{packe Take 1 Univers crose 0-01 , t} Packet by ity of (METAMUCIL, 00:00: unspecified mouth 3 [place] SUGAR,) 00 hemorrhoid (three) Med ical powder type times Branch daily. docusate 2018-06 Yes Hemorrhoids 100mg Take 1 Univers (COLACE) 0-01 , capsule by ity o f 100 mg 00:00: unspecified mouth 2 [place] capsule 00 hemorrhoid (two) Medic al type times Branch daily. psyllium-callaway 2018-06 Yes Hemorrhoids 1{packe Take 1 Univers crose 0-01 , t} Packet by ity of (METAMUCIL, 00:00: unspecified mouth 3 [place] SUGAR,) 00 hemorrhoid (three) Med ical powder type times Branch daily. docusate 2018-06 Yes Hemorrhoids 100mg Take 1 Univers (COLACE) 0-01 , capsule by ity o f 100 mg 00:00: unspecified mouth 2 [place] capsule 00 hemorrhoid (two) Medic al type times Branch daily. psyllium-callaway 2018-06 Yes [id number] 1{packe Take 1 Univers crose 0-01 t} Packet by ity of (METAMUCIL, 00:00: mouth 3 [place] SUGAR,) 00 (three) Medical powder times Branch daily. docusate 2018-06 Yes [id number] 100mg Take 1 Un jackie (COLACE) 0-01 capsule by ity o f 100 mg 00:00: mouth 2 [place] capsule 00 (two) Medical times Branch daily. psyllium-callaway 2018- Yes [id number] 1{packe Take 1 Univers crose 0-01 t} Packet by ity of (METAMUCIL, 00:00: mouth 3 [place] SUGAR,) 00 (three) Medical powder times Branch daily. docusate 2018-06 Yes [id number] 100mg Take 1 Un jackie (COLACE) 0-01 capsule by ity o f 100 mg 00:00: mouth 2 [place] capsule 00 (two) Medical times Branch daily. LEVOTHYROXI Yes Hypothyroid TAKE 1 Univers NE 50 mcg 5-07 ism TABLET BY ity o f tablet 00:00: (acquired) MOUTH [place] 00 EVERY Medical MORNING. Branch LEVOTHYROXI Yes Hypothyroid TAKE 1 Univers NE 50 mcg 5-07 ism TABLET BY ity o f tablet 00:00: (acquired) MOUTH [place] 00 EVERY Medical MORNING. Branch LEVOTHYROXI Yes [id number] TAKE 1 Univers NE 50 mcg 5-07 TABLET BY ity o f tablet 00:00: MOUTH [place] 00 EVERY Medical MORNING. Branch LEVOTHYROXI Yes [id number] TAKE 1 Univers NE 50 mcg 5-07 TABLET BY ity o f tablet 00:00: MOUTH [place] 00 EVERY Medical MORNING. Branch cyanocobala 2016-06 Yes 1000ug 1 mL by U nivers min 0-05 Intramuscu ity of (VITAMIN 00:00: lar route [place] B-12) 1,000 00 once every Me dical mcg/mL month. Branch injection cyanocobala 2016-06 Yes 1000ug 1 mL by U nivers min 0-05 Intramuscu ity of (VITAMIN 00:00: lar route [place] B-12) 1,000 00 once every Me dical mcg/mL month. Branch injection cyanocobala 2016-06 Yes 1000ug 1 mL by U nivers min 0-05 Intramuscu ity of (VITAMIN 00:00: lar route [place] B-12) 1,000 00 once every Me dical mcg/mL month. Branch injection cyanocobala 2017- Yes 1000ug 1 mL by U nivers min 0-05 Intramuscu ity of (VITAMIN 00:00: lar route [place] B-12) 1,000 00 once every Me dical mcg/mL month. Branch injection nortriptyli Yes 25mg Take 1 Univ ers ne 25 mg 8-17 capsule by ity o f capsule 00:00: mouth at [place] [address] bedtime. Medical Branch nortriptyli 0 Yes 25mg Take 1 Univ ers ne 25 mg 8-17 capsule by ity o f capsule 00:00: mouth at [place] [address] bedtime. Medical Branch nortriptyli Yes 25mg Take 1 Univ ers ne 25 mg 8-17 capsule by ity o f capsule 00:00: mouth at [place] [address] bedtime. Medical Branch nortriptyli Yes 25mg Take 1 Univ ers ne 25 mg 8-17 capsule by ity o f capsule 00:00: mouth at [place] [address] bedtime. Medical Branch isosorbide Yes 30mg Take 30 mg U nivers mononitrate 4-20 by mouth ity of 30 mg 24 hr 00:00: as needed. [place] tablet 00 Medical Branch isosorbide Yes 30mg Take 30 mg U nivers mononitrate 4-20 by mouth ity of 30 mg 24 hr 00:00: as needed. [place] tablet 00 Medical Branch isosorbide Yes 30mg Take 30 mg U nivers mononitrate 4-20 by mouth ity of 30 mg 24 hr 00:00: as needed. [place] tablet 00 Medical Branch isosorbide Yes 30mg Take 30 mg U nivers mononitrate 4-20 by mouth ity of 30 mg 24 hr 00:00: as needed. [place] tablet 00 Medical Branch HYDROcodone Yes 1{tbl} Take 1 Un jackie -acetaminop 4-18 tablet by ity of hen 10-325 00:00: mouth as [place] mg tablet 00 needed. Medical Branch HYDROcodone Yes 1{tbl} Take 1 Un jackie -acetaminop 4-18 tablet by ity of hen 10-325 00:00: mouth as [place] mg tablet 00 needed. Medical Branch HYDROcodone Yes 1{tbl} Take 1 Un jackie -acetaminop 4-18 tablet by ity of hen 10-325 00:00: mouth as [place] mg tablet 00 needed. Medical Branch HYDROcodone 2017 Yes 1{tbl} Take 1 Un jackie -acetaminop 4-18 tablet by ity of hen 10-325 00:00: mouth as [place] mg tablet 00 needed. Medical Branch VITAMIN D2 Yes [id number] Take Unive rs 50,000 unit 4-17 50,000 ity of capsule 00:00: Units by [place] [address] mouth Medical weekly. Branch VITAMIN D2 Yes [id number] Take Unive rs 50,000 unit 4-17 50,000 ity of capsule 00:00: Units by [place] [address] mouth Medical weekly. Branch VITAMIN D2 Yes [id number] Take Unive rs 50,000 unit 4-17 50,000 ity of capsule 00:00: Units by [place] [address] mouth Medical weekly. Branch VITAMIN D2 Yes [id number] Take Unive rs 50,000 unit 4-17 50,000 ity of capsule 00:00: Units by [place] [address] mouth Medical weekly. Branch atenolol Yes 100mg Take 100 Univ ers 100 mg 4-04 mg by ity of tablet 00:00: mouth [place] 00 daily. Medical Branch atenolol Yes 100mg Take 100 Univ ers 100 mg 4-04 mg by ity of tablet 00:00: mouth [place] 00 daily. Medical Branch atenolol Yes 100mg Take 100 Univ ers 100 mg 4-04 mg by ity of tablet 00:00: mouth [place] 00 daily. Medical Branch atenolol Yes 100mg Take 100 Univ ers 100 mg 4-04 mg by ity of tablet 00:00: mouth [place] 00 daily. Medical Branch aspirin Yes 81mg Take 1 Univers (ASPIRIN 1-30 tablet by ity of LOW DOSE) 00:00: mouth [place] 81 mg EC 00 daily. Medical tablet Branch proMETHazin Yes 12.5mg Take 1 Un jackie e 12.5 mg 1-30 tablet by ity o f tablet 00:00: mouth [place] 00 every 6 Medical (six) Branch hours as needed for Nausea and Vomiting (N/V). atorvastati Yes 40mg Take 1 Univ ers n 40 mg 1-30 tablet by ity of tablet 00:00: mouth at [place] 00 bedtime. Medical Branch aspirin 2017-0 Yes 81mg Take 1 Univers (ASPIRIN 1-30 tablet by ity of LOW DOSE) 00:00: mouth [place] 81 mg EC 00 daily. Medical tablet Branch proMETHazin 2017-0 Yes 12.5mg Take 1 Un jackie e 12.5 mg 1-30 tablet by ity o f tablet 00:00: mouth [place] 00 every 6 Medical (six) Branch hours as needed for Nausea and Vomiting (N/V). atorvastati 2017-0 Yes 40mg Take 1 Univ ers n 40 mg 1-30 tablet by ity of tablet 00:00: mouth at [place] 00 bedtime. Medical Branch aspirin 0 Yes 81mg Take 1 Univers (ASPIRIN 1-30 tablet by ity of LOW DOSE) 00:00: mouth [place] 81 mg EC 00 daily. Medical tablet Branch proMETHazin Yes 12.5mg Take 1 Un jackie e 12.5 mg 1-30 tablet by ity o f tablet 00:00: mouth [place] 00 every 6 Medical (six) Branch hours as needed for Nausea and Vomiting (N/V). atorvastati 2016-0 Yes 40mg Take 1 Univ ers n 40 mg 1-30 tablet by ity of tablet 00:00: mouth at [place] 00 bedtime. Medical Branch aspirin 2016-0 Yes 81mg Take 1 Univers (ASPIRIN 1-30 tablet by ity of LOW DOSE) 00:00: mouth [place] 81 mg EC 00 daily. Medical tablet Branch proMETHazin 2017-0 Yes 12.5mg Take 1 Un jackie e 12.5 mg 1-30 tablet by ity o f tablet 00:00: mouth [place] 00 every 6 Medical (six) Branch hours as needed for Nausea and Vomiting (N/V). atorvastati 2016-0 Yes 40mg Take 1 Univ ers n 40 mg 1-30 tablet by ity of tablet 00:00: mouth at [place] 00 bedtime. Medical Branch CREON 0 Yes 2{tbl} Take 2 Univers 36,000-114, 4-14 Tabs by ity o f 000- 00:00: mouth 2 [place] 180,000 00 (two) Medical unit CpDR times Branch daily. CREON Yes 2{tbl} Take 2 Univers 36,000-114, 4-14 Tabs by ity o f 000- 00:00: mouth 2 [place] 180,000 00 (two) Medical unit CpDR times Branch daily. CREON Yes 2{tbl} Take 2 Univers 36,000-114, 4-14 Tabs by ity o f 000- 00:00: mouth 2 [place] 180,000 00 (two) Medical unit CpDR times Branch daily. CREON Yes 2{tbl} Take 2 Univers 36,000-114, 4-14 Tabs by ity o f 000- 00:00: mouth 2 [place] 180,000 00 (two) Medical unit CpDR times Branch daily. PROAIR HFA Yes 2{puff} Inhale 2 Univers 90 3-14 Puffs ity of mcg/actuati 00:00: every 6 [place] as on inhaler 00 (six) Medical hours as Branch needed for Wheezing or Shortness of Breath. PROAIR HFA Yes 2{puff} Inhale 2 Univers 90 3-14 Puffs ity of mcg/actuati 00:00: every 6 [place] as on inhaler 00 (six) Medical hours as Branch needed for Wheezing or Shortness of Breath. PROAIR HFA Yes 2{puff} Inhale 2 Univers 90 3-14 Puffs ity of mcg/actuati 00:00: every 6 [place] as on inhaler 00 (six) Medical hours as Branch needed for Wheezing or Shortness of Breath. PROAIR HFA Yes 2{puff} Inhale 2 Univers 90 3-14 Puffs ity of mcg/actuati 00:00: every 6 [place] as on inhaler 00 (six) Medical hours as Branch needed for Wheezing or Shortness of Breath. Trelegy Trelegy Yes [facility] Loratadine Loratadine Yes [place] [address] [facility] Vitamin B12 Vitamin B12 Yes [place] [address] [facility] Synthroid Synthroid Yes [place] [address] [facility] Miller on an [facility] stomach in l the Outpati morning ent Clinics Aspirin Aspirin Yes [facility]KE [facility] TABLET [facility] EVERY DAY l [facility] ent Clinics Aspirin Low Aspirin Low Yes Tonio TAKE [address] [facility] Dose Dose Miller TABLET BY [facility] EVERY DAY l [facility] Clinics Atenolol Atenolol Yes Tonio TAKE [address] [facility] Miller TABLET BY [facility] EVERY DAY l [facility] Clinics Nexium Nexium Yes [facility]oi TAKE ONE [facility] CAPSULE BY [facility] EVERY DAY l [facility] Clinics ProAir HFA ProAir HFA Yes [place]io [address] [facility] Miller needed [facility]ics Furosemide Furosemide Yes [place]io [address] [facility]ics Venlafaxine Venlafaxine Yes Tonio TAKE ONE [facility] HCl ER HCl ER Miller CAPSULE BY [facility] EVERY DAY l [facility] ent [facility] Simvastatin Simvastatin Yes Tonio [address] [facility] Miller in the [facility] ent Clinics Simvastatin Simvastatin Yes Tonio [address] [facility] Miller in the [facility] ent [facility] Levothyroxi Levothyroxi Yes Tonio TAKE [address] [facility] ne Sodium ne Sodium Miller TABLET BY [facility] Aspirin Aspirin Yes [facility]KE [facility] TABLET BY [facility] EVERY DAY l [facility] ent Clinics Clopidogrel Clopidogrel Yes Tonio [address] Bisulfate Bisulfate [facility] Promethazin Promethazin Yes Tonio [address] [facility] e HCl e HCl Miller needed [facility] Gabapentin Gabapentin Yes Tonio TAKE [address] [facility] Miller CAPSULE BY [facility] EVERY DAY l [facility] ent Clinics Zofran Zofran Yes [facility] 1 [facility] as needed [facility]ics Docusate Docusate Yes Tonio TAKE [address] [facility] Sodium Sodium Miller CAPSULE BY [facility] TWICE A l DAY [facility] Clinics Spironolact Spironolact Yes Tonio TAKE [address] [facility] one one Miller TABLET BY [facility] EVERY DAY l [facility] ent Clinics Venlafaxine Venlafaxine Yes Tonio [address] [address] HCl ER HCl ER Miller with food [facility] Nasonex Nasonex Yes Tonio [address] [facility] Miller in each [facility] Hydrocodone Hydrocodone Yes Tonio [address] -Acetaminop -Acetaminop Miller as needed [facility] Clotrimazol Clotrimazol Yes Tonio [address] [facility] e e Miller applicatio [facility] ent Clinics Immunizations Ordered Filled Immunization Date Status Comments [facility] e Immunization Name Name SARS-COV-2 COVID-19 2020-09-17 Completed Unive rsity of MODERNA VACCINE 00:00:00 [facility] SARS-COV-2 COVID-19 2020-09-17 Completed Unive rsity of MODERNA VACCINE 00:00:00 [facility] SARS-COV-2 COVID-19 2020-09-17 Completed Unive rsity of MODERNA VACCINE 00:00:00 [facility] SARS-COV-2 COVID-19 2020-09-17 Completed Unive rsity of MODERNA VACCINE 00:00:00 [facility] SARS-COV-2 COVID-19 2020-08-20 Completed Unive rsity of MODERNA VACCINE 00:00:00 [facility] SARS-COV-2 COVID-19 2020-08-20 Completed Unive rsity of MODERNA VACCINE 00:00:00 [facility] SARS-COV-2 COVID-19 2020-08-20 Completed Unive rsity of MODERNA VACCINE 00:00:00 [facility] SARS-COV-2 COVID-19 2020-08-20 Completed Unive rsity of MODERNA VACCINE 00:00:00 [facility] Influenza Virus 2007-09-22 Completed Universit y of Vaccine 00:00:00 [facility] Pneumococcal 2007-09-22 Completed University o f Polysaccharide, 00:00:00 [facility] [place] PPSV23 (PNEUMOVAX) Branch Influenza Virus 2007-09-22 Completed Universit y of Vaccine 00:00:00 [facility] Pneumococcal 2007-09-22 Completed University o f Polysaccharide, 00:00:00 [facility] [place] PPSV23 (PNEUMOVAX) Branch Influenza Virus 2007-09-22 Completed Universit y of Vaccine 00:00:00 [facility] Pneumococcal 2007-09-22 Completed University o f Polysaccharide, 00:00:00 [place] [facility] ical PPSV23 (PNEUMOVAX) Branch Influenza Virus 2007-09-22 Completed Universit y of Vaccine 00:00:00 [facility] Pneumococcal 2007-09-22 Completed University o f Polysaccharide, 00:00:00 [facility] ical PPSV23 (PNEUMOVAX) Branch Vital Signs Vital Name Observation Time Observation Value Comments Source Systolic blood 2021-07-24 20:23:00 130 mm[Hg] Univer sity of pressure [facility] Diastolic blood 2021-07-24 20:23:00 80 mm[Hg] Unive rsity [facility] Heart rate 2021-07-24 20:23:00 67 /min [facility] Body temperature 2021-07-24 20:23:00 36.67 Radha [facility] height 2021-07-24 20:23:00 165.1 cm [facility] Body weight 2021-07-24 20:23:00 83.326 kg [facility] BMI 2021-07-24 20:23:00 30.57 kg/m2 [facility] Procedures Procedure Date / Time Performed Performing Clinician [facility] e ASSIGNMENT OF BENEFITS 2020-10-27 16:14:10 Doctor Unassigned, No [facility] Plan of Care Planned Activity Planned Date Details Comments Source Future Scheduled 2021-10-16 Depression screening Uni versity of Test 00:00:00 (procedure) [code = [facility] dical 398317008] Branch Future Scheduled 2021-10-16 Depression screening Uni versity of Test 00:00:00 (procedure) [code = [place] Me dical 648049112] Branch Future Scheduled 2021-02-21 INFLUENZA VACCINE Univer sity of Test 00:00:00 (Season Ended) [code Say edical = INFLUENZA VACCINE Branch (Season Ended)] Future Scheduled 2021-02-21 INFLUENZA VACCINE Univer sity of Test 00:00:00 (Season Ended) [code [place] M edical = INFLUENZA VACCINE Branch (Season Ended)] Diagnostic Test 2020-10-27 COVID-19 (ID NOW Expected: Universi ty of Pending 00:00:00 RAPID TESTING) [code 10/27/2020, [facility] = 16063-0] Expires: Branch 10/27/2021 Future Scheduled 2017-07-17 Screening for University of Test 00:00:00 malignant neoplasm [place] Med ical of lung (procedure) Branch [code = 536397926] Future Scheduled 2017-07-17 Screening for University of Test 00:00:00 malignant neoplasm [place] Med ical of lung (procedure) Branch [code = 772181850] Future Scheduled 2007-02-01 Screening for University of Test 00:00:00 malignant neoplasm [place] Med ical of cervix Branch (procedure) [code = 266145097] Future Scheduled 2007-02-01 Screening for University of Test 00:00:00 malignant neoplasm [place] Med ical of cervix Branch (procedure) [code = 346663716] Future Scheduled 2007 Screening for occult Uni versity of Test 00:00:[address] [facility] (procedure) [code = Branch 002077490] Future Scheduled 2007 Stool DNA-based Universi ty of Test 00:00:00 colorectal cancer [facility] jesus screening Branch (procedure) [code = 751327842103123] Future Scheduled 2007 Flexible fiberoptic Univ ersity of Test 00:00:[address] [facility] (procedure) [code = Branch 95184566] Future Scheduled 2007 Screening for University of Test 00:00:00 malignant neoplasm [place] Med ical of colon (procedure) Branch [code = 704313750] Future Scheduled 2007 Screening for University of Test 00:00:00 malignant neoplasm [place] Med ical of colon (procedure) Branch [code = 077700344] Future Scheduled 2007 Zoster Recombinant Unive rsity of Test 00:00:00 Vaccine (SHINGRIX) [place] Med ical (1 of 2) [code = Branch Zoster Recombinant Vaccine (SHINGRIX) (1 of 2)] Future Scheduled 2007 Screening for occult Uni versity of Test 00:00:[address] [facility] (procedure) [code = Branch 926346840] Future Scheduled 2007 Stool DNA-based Universi ty of Test 00:00:00 colorectal cancer [place] Medi jesus screening Branch (procedure) [code = 825328341013422] Future Scheduled 2007 Flexible fiberoptic Univ ersity of Test 00:00:00 sigmoidoscopy [place] [facility] (procedure) [code = Branch 31253210] Future Scheduled 2007 Screening for University of Test 00:00:00 malignant neoplasm [place] Med ical of colon (procedure) Branch [code = 231817362] Future Scheduled 2007 Screening for University of Test 00:00:00 malignant neoplasm [place] Med ical of colon (procedure) Branch [code = 145477895] Future Scheduled 2007 Zoster Recombinant Unive rsity of Test 00:00:00 Vaccine (SHINGRIX) [place] Med ical (1 of 2) [code = Branch Zoster Recombinant Vaccine (SHINGRIX) (1 of 2)] Future Scheduled 1997 Screening for University of Test 00:00:00 malignant neoplasm [place] [facility] ical of breast Branch (procedure) [code = 271930809] Future Scheduled 1997 Screening for University of Test 00:00:00 malignant neoplasm [place] Med ical of breast Branch (procedure) [code = 563850777] Future Scheduled 1976-01-15 DTaP,Tdap,and Td Univers ity of Test 00:00:00 Vaccines (1 - Tdap) [place] Me dical [code = Branch DTaP,Tdap,and Td Vaccines (1 - Tdap)] Future Scheduled 1976-01-15 DTaP,Tdap,and Td Univers ity of Test 00:00:00 Vaccines (1 - Tdap) [place] Me dical [code = Branch DTaP,Tdap,and Td Vaccines (1 - Tdap)] Future Scheduled 1975 Hepatitis C University of Test 00:00:00 screening [place] [facility] (procedure) [code = Branch 252768105] Future Scheduled 1975 Hepatitis C University of Test 00:00:00 screening [place] [facility] (procedure) [code = Branch 998816986] Encounters Start End Encounter Admission Attending Care Care Encounter Source Date/Time Date/Time Type Type Clinicians Facility Department ID 2021-07-[address] [facility] [id number] [facility] 14:19:22 [facility]ly [facility] [address] [facility] 2021-07-18 Outpatient Miller, [facility] 13:[facility]16 [place] 75852 [facility] 2021-07-18 Outpatient Miller, [facility] 12:59:49 [place] 75410 [facility] 2021-07-18 Outpatient Miller, [facility] 12:31:12 [place] 86363 [facility] 2021-07-18 Outpatient Miller, [facility] 12:29:23 [place] 76989 [facility] 2021-07-18 Outpatient Miller, [facility] 12:24:50 [place] 56027 [facility] 2021-07-18 Outpatient Miller, [facility] 12:24:31 [place] 08506 [facility] 2021-07-18 Outpatient Miller, [facility] 12:23:16 [place] 14735 [facility] 2021-07-18 Outpatient Miller, [facility] 12:09:35 [place] 48028 [facility] 2021-07-18 Outpatient Miller, [facility] 12:08:47 [place] 39081 [facility] 2021-07-18 Outpatient Miller, [facility] 12:08:21 [place] 27916 [facility] 2021-07-18 Outpatient Miller, [facility] 12:07:39 [place] 71398 [facility] 2021-07-18 Outpatient Miller, [facility] 11:57:35 [place] 00395 [facility] 2021-07-18 Outpatient Miller, [facility] 11:55:10 [place] 11511 [facility] 2021-07-18 Outpatient Miller, [facility] 11:25:38 [place] 83567 [facility] 2021-07-18 Outpatient Miller, [facility] 11:24:24 [place] 55274 [facility] 2021-07-18 [facility] [place] 90241 [facility] 2021-07-18 Outpatient Miller, [facility] 11:19:05 [place] 10881 [facility] 2021-07-18 Outpatient Miller, [facility] 11:17:38 [place] 40597 [facility] 2021-07-18 Outpatient Miller, [facility] 11:10:37 [place] 22030 [facility] 2021-07-18 Outpatient Miller, [facility] 11:07:32 [place] 74633 [facility] 2021-07-18 Outpatient Miller, [facility] 11:07:07 [place] 68267 [facility] 2021-07-18 Outpatient Miller, [facility] 11:06:50 [place] 17446 [facility] 2021-07-18 Outpatient Miller, [facility] 11:04:55 [place] 54400 [facility] 2021-07-18 Outpatient Miller, [facility] 11:00:24 [place] 53392 [facility] 2021-08-10 2021-08-10 ambulatory [facility] [id number] [facility] 2021-07-30 2021-07-30 Telephone [facility] [id number] [facility] 00:00:00 00:00:00 Antonietta MOBLEY [facility].1.13.10 it y of WOMEN'S [id number] [facility] [phone] [address] 2021-07-25 2021-07-25 ambulatory [facility]ML[facility] [id number] [facility] 2021-07-24 2021-07-24 Office [facility] [id number] [facility] 14:30:00 14:50:25 Visit Antonietta STARKE [id number] it y of WOMEN'S [id number] [facility] [id number] [address] 2021-07-11 2021-07-11 ambulatory [facility]MLC [facility] [id number] [facility] 2021-06-27 2021-06-27 ambulatory [facility]ML[facility] [id number] [facility] 2021-05-31 2021-05-31 ambulatory [facility] [id number] [facility] 2021-05-24 2021-05-24 ambulatory [facility] [id number] [facility] 2021-04-23 2021-04-23 ambulatory [facility] [id number] [facility] 2021-04-16 2021-04-16 Outpatient [facility] [id number] [facility] 2021-03-23 2021-03-23 Outpatient [facility] [id number] [facility] 2021-03-22 2021-03-22 Outpatient [facility] [id number] [facility] 2021-02-22 2021-02-22 Outpatient [facility] [id number] [facility] 2021-02-15 2021-02-15 Outpatient [facility] [id number] [facility] 2021-01-25 2021-01-25 Outpatient [facility] [id number] [facility] 2021-01-02 2021-01-02 Outpatient [facility] [id number] [facility] 2021-01-02 2021-01-02 Outpatient [facility] [id number] [facility] 2021-01-01 2021-01-01 Outpatient [facility] [id number] [facility] 2021-01-01 2021-01-01 Outpatient [facility] [id number] [facility] 2020-12-28 2020-12-28 Outpatient [facility] [id number] [facility] 2020-12-27 2020-12-27 Outpatient [facility] [id number] [facility] 2020-12-26 2020-12-26 [facility] [id number] [facility] 2020-12-21 2020-12-21 [facility] [id number] [facility] 2020-12-20 2020-12-20 [facility] [id number] [facility] 2020-12-05 2020-12-05 [facility] [id number] [facility] 2020-12-04 2020-12-04 [facility] [id number] [facility] 2020-10-26 2020[facility]10-26 [facility] [id number] [facility] 2020-10-20 2020-10-20 [facility] [id number] [facility] 2020-10-18 2020-10-18 [facility] [id number] [facility] 2020-10-16 2020-10-16 [facility] [id number] 06:39:00 08:43:00 Encounter Tyler Pan [id number] [place] 4.2.7.2.686 Surgical [id number] [facility] 071 2020-10-16 2020-10-16 [facility] [id number] 07:51:00 08:13:00 Viviane [id number] [place] 4.2.7.2.686 Surgical [id number] [place] 020 2020-10-16 2020-10-16 Orders Doctor ANGLE [id number] 00:00:00 00:00:00 Only Unassigned, STEVE [id number]686 [id number] 009 2020-10-13 2020-10-13 Laboratory Only, Adc [facility] 1.2.840.114 [id number] 09:49:03 10:04:03 Only Test [place] [id number] [place] 4.2.7.2.686 [place] [id number] 353 2020-10-13 2020-10-13 Orders Doctor ANGLE 1.2.840.114 [id number] 00:00:00 00:00:00 Only Unassigned, STEVE 350.1.13.[address]686 [id number] 009 2020-10-05 2020-10-05 Outpatient [facility] [id number] [facility]00 [facility] ent Clinics 2020-10-03 2020-10-03 Outpatient [facility] [id number] [facility] 00:[facility]:00 [facility] ent Clinics 2020-10-02 2020-10-02 [facility] [id number] 06:53:00 09:27:00 Encounter Tyler Bush [place] [id number] [place] 4.2.7.2.686 Surgical [id number] [place] 071 2020-10-02 2020-10-02 Surgery [facility] 1.2.840.114 [id number] 07:51:00 08:16:00 [place] [id number] [place] 4.2.7.2.686 Surgical [id number] [facility] 020 2020-10-02 2020-10-02 Orders Doctor ANGLE 1.2.840.114 [id number] 00:00:00 00:00:00 Only Unassigned, STEVE 350.1.13.[address]686 [id number] 009 2020-09-29 2020-09-29 Laboratory Only, [facility] [place] 1.2.840.114 [id number] 10:08:41 10:23:41 Only Test Viviane [id number] [place] 4.2.7.2.686 [place] [id number] 353 2020-09-27 2020-09-27 Heat Reader Candace, [facility] [place] 1.2.840.114 [id number] 14:35:00 14:50:00 Visit Lab Main Viviane [id number] [place] 4.2.7.2.686 Professio [id number] community health 353 [facility] 2020-09-27 2020-09-27 Orders Doctor ANGLE 1.2.840.114 [id number] 00:00:00 00:00:00 Only Unassigned, STEVE 350.1.13.10 [place] [facility] 4.2.7.2.686 [id number] [id number] 2020-07-07 2020-07-07 Office Donavan, [facility] 1.2.840.114 [id number] 10:30:00 10:45:00 Visit Angle Pan 350.1.13.10 Evangelista [place] 4.2.7.2.686 Professio [id number] community health 188 [facility] 2020-06-27 2020-06-27 [facility] [id number] [facility] 2020-05-29 2020-05-[address] [facility] [id number] [facility] 2020-05-17 2020-05-17 [facility] [id number] [facility] 2020-05-16 2020-05-16 [facility] [id number] [facility] 2020-04-27 2020-04-27 [facility] [id number] [facility] 2020-04-26 2020-04-26 Outpatient [facility] [id number] [facility] 2020-04-13 2020-04-13 Outpatient [facility] [id number] [facility] 2020-04-06 2020-04-06 Outpatient [facility] [id number] [facility] 2020-03-30 2020-03-30 Outpatient [facility] [id number] [facility] 2020-03-28 2020-03-28 Outpatient [facility] [id number] [facility] 2020-03-23 2020-03-23 Outpatient [facility] [id number] [facility] 2020-03-16 2020-03-16 Outpatient [facility] [id number] [facility] 2020-03-02 2020-03-02 [facility] [id number] [facility] 16[facility]00:00 16:00:00 t [employer] Luke s - Drive [facility] Medicine l Medicine Outpati ent Clinics 2020-03-01 2020-03-01 [facility] [id number] 16:58:00 16:58:00 t [place] [employer] - Drive [facility] Family Medicine l Medicine Outpati ent Clinics 2020-02-29 2020-02-29 [facility] [id number] 09:32:00 09:32:00 t [place] [employer] - Drive [facility] Medicine l Medicine Outpati ent Clinics 2020-02-19 2020-02-19 [facility] [id number] [address] 11:43:00 11:43:00 t [facility] [address] [place] [facility] [address] [facility] Family Medicine l Medicine Outpati ent Clinics 2020-02-18 2020-02-18 [facility] [id number] 14:30:00 14:30:00 t Specialty/U Elvira kes - Specialty rology Memori [facility] /Urology Clinic l Clinic Outpati ent Clinics 2020-02-17 2020-02-17 [facility] [id number] 11:30:00 11:30:00 t Specialty/U Elvira kes - Specialty rology [facility]Urology Clinic l Clinic Outpati ent Clinics 2019-12-24 2019-12-24 [facility] [id number] 09:32:00 09:32:00 t [employer] - Drive [facility] Family Medicine l Medicine Outpati ent Clinics 2019-12-13 2019-12-13 [facility] [id number] 11:45:00 11:45:00 t [facility] [employer] [facility] Medicine l Medicine Outpati ent Clinics 2019-12-01 2019-12-01 [facility] [id number] 16:54:00 16:54:00 t [employer] - Drive [facility] Family Medicine l Medicine Outpati ent Clinics 2019-11-25 2019-11-25 [facility] [id number] [facility] 16:55:00 16:55:00 t [employer] - Drive [facility] Family Medicine l Medicine Outpati ent Clinics 2019-11-22 2019-11-22 [facility] [id number] 11:38:00 11:38:00 t [employer] - Drive [facility] Family Medicine l Medicine Outpati ent Clinics 2019-11-19 2019-11-19 [facility] [id number] 16:25:00 16:25:00 t [facility] [address] - [employer] [facility] Medicine l Medicine Outpati ent Clinics 2019-11-18 2019-11-18 [facility] [id number] 16:23:00 16:23:00 t [employer] - Drive [facility] Medicine l Medicine Outpati ent Clinics 2019-11-18 2019-11-18 [facility] [id number] 10:45:00 10:45:00 t [place] [employer] - [employer] [facility] Medicine l Medicine Outpati ent Clinics 2019-11-08 2019-11-08 [facility] [id number] 14:04:00 14:04:00 t [facility] l Medicine Outpati ent Clinics 2019-11-05 2019-11-05 [facility] [id number] 14:36:00 14:36:00 t [facility] l Medicine Outpati ent Clinics 2019-11-01 2019-11-01 [facility] [id number] 11:35:00 11:35:00 t [place] [employer] - [employer] [facility] l Medicine Outpati ent Clinics 2019-10-27 2019-10-27 [facility] [id number] 13:30:00 13:30:00 t [place] [employer] - [employer] [facility] l Medicine Outpati ent Clinics 2019-10-26 2019-10-26 [facility] [id number] 08:59:00 08:59:00 t [place] [employer] - [employer] [facility] Medicine l Medicine Outpati ent Clinics 2019-10-25 2019-10-25 [facility] [id number] 08:37:00 08:37:00 t [place] [employer] - [employer] [facility] Medicine l Medicine Outpati ent Clinics 2019-10-14 2019-10-14 [facility] [id number] [facility] 15:00:00 15:00:00 t [place] [employer] - [employer] [facility] Medicine l Medicine Outpati ent Clinics 2019-10-12 2019-10-12 [facility] [id number] 09:50:00 09:50:00 t [place] [employer] - Drive [facility] l Medicine Outpati ent Clinics 2019-09-17 2019-09-17 [facility] [id number] 08:05:00 08:05:00 t [place] [employer] - Drive [facility] Medicine l Medicine Outpati ent Clinics 2019-08-27 2019-08-27 [facility] [id number] [address] 14:30:00 14:30:00 t Specialty/U Elvira kes - Specialty rology Memori a /Urology Clinic l Clinic Outpati ent Clinics 2019-08-19 2019-08-19 [facility] [id number] 11:00:00 11:00:00 t [place] [employer] s - Drive [facility] Medicine l Medicine Outpati ent Clinics 2019-08-05 2019-08-05 [facility] [id number] 09:15:00 09:15:00 t [place] [employer] - Drive [facility] Medicine l Medicine Outpati ent Clinics 2019-08-03 2019-08-03 [facility] [id number] 14:40:00 14:40:00 t [facility] [address] [facility] l Medicine Outpati ent Clinics 2019-07-29 2019-07-29 [facility] [id number] 13:23:00 13:23:00 t [place] [employer] - Drive [facility] Medicine l Medicine Outpati ent Clinics 2019-07-19 2019-07-19 [facility] [id number] 13:59:00 13:59:00 t [place] [employer] - Drive [facility] l Medicine Outpati ent Clinics 2019-07-14 2019-07-14 [facility] [id number] 13:18:00 13:18:00 t [place] [employer] - Drive [facility] Medicine l Medicine Outpati ent Clinics 2019-07-06 2019-07-06 [facility] [id number] 10:00:00 10:00:00 t [place] [employer] - Drive [facility] l Medicine Outpati ent Clinics 2019-05-17 2019-05-17 [facility] [id number] 13:30:00 13:30:00 t [place] [employer] - Drive [facility] Medicine l Medicine Outpati ent Clinics 2019-03-30 2019-03-30 [facility] [id number] 15:00:00 15:00:00 t Specialty/U Elvira kes - Specialty rology Memori a /Urology Clinic l Clinic Outpati ent Clinics 2019-03-23 2019-03-23 [facility] [id number] 08:47:00 08:47:00 t Specialty/U Elvira kes - Specialty rology Memori a /Urology Clinic l Clinic Outpati ent Clinics 2019-03-22 2019-03-22 [facility] [id number] 16:57:00 16:57:00 t [employer] - [employer] [facility] Medicine Outpati ent Clinics 2019-03-17 2019-03-17 [facility] [id number] 09:45:00 09:45:00 [facility] [employer] [facility] Outpati ent Clinics 2019-03-04 2019-03-04 [facility] [id number] 11:00:00 11:00:00 t Specialty/U Elvira kes - Specialty rology Memori a /Urology Clinic l Clinic Outpati ent Clinics 2019-03-01 2019-03-01 [facility] [id number] 11:00:00 11:00:00 t [employer] - [employer] [facility] Outpati ent Clinics 2019-02-23 2019-02-23 [facility] [id number] 13:15:00 13:15:00 t [employer] - [employer] [facility] Outpati ent Clinics 2019-02-15 2019-02-15 [facility] [id number] 09:54:00 09:54:00 t Specialty/U Elvira kes - Specialty rology Memori a /Urology Clinic l Clinic Outpati ent Clinics 2019-02-08 2019-02-08 [facility] [id number] 13:00:00 13:00:00 t Specialty/U Elvira kes - Specialty rology Memori a /Urology Clinic l Clinic Outpati ent Clinics 2019-02-01 2019-02-01 [facility] [id number] [facility] 14:15:00 14:15:00 t Specialty/U Elvira kes - Specialty rology Memori a /Urology Clinic l Clinic Outpati ent Clinics 2019-01-27 2019-01-27 [facility] [id number] 10:00:00 10:00:00 [place] [address] [place] - Drive [facility] Medicine l Medicine Outpati ent Clinics 2018-12-08 2018-12-08 [facility] [id number] 13:00:00 13:00:00 t [place] [employer] [place] [employer] [place] s - Drive [facility] Medicine Medicine Outpati ent Clinics 2018-12-07 2018-12-07 [facility] [id number] [facility] 16:17:00 16:17:00 t [place] [employer] [place] - Drive [facility] Medicine l Medicine Outpati ent Clinics 2018-12-03 2018-12-03 [facility] [id number] 09:15:00 09:15:00 t [place] [employer] s - Drive [facility] Medicine Medicine Outpati ent Clinics 2018-10-19 2018-10-19 [facility] [id number] 16:30:00 16:30:00 t [place] [employer] s - Drive [facility] Medicine Medicine Outpati ent Clinics 2018-10-01 2018-10-01 [facility] [id number] 13:52:00 13:52:00 t [place] [employer] [place] - Drive [facility] Medicine Medicine Outpati ent Clinics 2018-09-14 2018-09-14 [facility] [id number] 08:34:00 08:34:00 t [place] [employer] [place] [employer] [place] - Drive [facility] Medicine Medicine Outpati ent Clinics 2018-09-10 2018-09-10 [facility] [id number] [facility] 14:45:00 14:45:00 t [place] [employer] [place] [employer] [place] - Drive [facility] Medicine Medicine Outpati ent Clinics 2018-08-26 2018-08-26 [facility] [id number] [facility] 16:26:00 16:26:00 t [place] [employer] s - Drive [facility] Medicine Outpati ent Clinics 2018-08-25 2018-08-25 [facility] [id number] 10:00:00 10:00:00 [place] [address] [place] - Drive [facility] Medicine Medicine Outpati ent Clinics 2018-08-19 2018-08-19 [facility] [id number] 08:22:00 08:22:00 t [place] [employer] s - Drive [facility] Medicine Outpati ent Clinics 2018-07-16 2018-07-16 [facility] [id number] 13:00:00 13:00:00 t [place] [employer] s - Drive [facility] Medicine Outpati ent Clinics 2018-03-25 2018-03-25 [facility] [id number] 10:15:00 10:15:00 t [place] [employer] s - Drive [facility] Medicine Outpati ent Clinics 2018-02-03 2018-02-03 [facility] [id number] 09:02:00 09:02:00 t [place] [employer] - Drive [facility] Medicine Outpati ent Clinics 2018-01-23 2018-01-23 [facility] [id number] [facility] 10:00:00 10:00:00 t [place] [employer] - Drive [facility] Medicine Medicine Outpati ent Clinics 2017-12-23 2017-12-23 [facility] [id number] 10:30:00 10:30:00 t [place] [employer] - Drive [facility] Medicine Outpati ent Clinics 2017-12-16 2017-12-16 [facility] [id number] 15:15:00 15:15:00 t [place] [employer] - Drive [facility] Medicine Outpati ent Clinics 2017-11-04 2017-11-04 [facility] [id number] 10:00:00 10:00:00 t [place] [employer] - Drive [facility] Medicine Outpati ent Clinics 2016-05-14 2016-05-14 Outpatient Raju_P [facility] MMG [id number] [place] 03:16:00 03:16:00 0831 [facility] Results Test Description Test Time Test Comments [...] GH.........160-189 mg/dL VERY HIGH.........>/ = 190 mg/dL [id number] 08:02:00 Test Item Value Reference Range Interpretation [...] LDL (test MG/DL 0-99 code = LDL) [id number] 07:51:00 Test Item Value Reference Range Interpretation Comments MAGNESIUM (test code = MAG) 2.0 MG/DL 1.6-2.3 N PROTHROMBIN [id number] 07:37:00 Test Item Value Reference Range Interpretation [...] syste oscar embolism. 3.0 - 4.5 PTT [id number] 07:37:00 Test Item Value Reference Range Interpretation Comments PTT ACTIVATED (test code = APTT) 26.7 SECONDS 22.0-33.0 N [id number] 01:26:00 Test Item Value Reference Range Interpretation Comments TROPONIN-I (test code = TROPI) < 0.012 NG/ML 0.012-0.033 L HEPATIC FUNCTION [id number] 18:44:00 Test Item Value Reference Range Interpretation [...] 77 UNITS/L 38-126 N ALKP) BASIC METABOLIC [id number] 18:15:00 Test Item Value Reference Range Interpretation [...] code = 8.9 MG/DL 8.4-10.2 N CA) [id number] 18:15:00 Test Item Value Reference Range Interpretation Comments TROPONIN-I (test code = TROPI) < 0.012 NG/ML 0.012-0.033 L BASIC METABOLIC [id number] 18:03:00 Test Item Value Reference Range Interpretation [...] code = 8.9 MG/DL 8.4-10.2 N CA) [id number] 18:03:00 Test Item Value Reference Range Interpretation Comments TROPONIN-I (test code = TROPI) NG/ML 0.0-0.045 CBC W/O [id number] 17:39:00 Test Item Value Reference Range Interpretation [...]
[2021-08-20 17:06] LABS: Urine Blood 2+ (Negative); Urine Glucose Negative (Negative); Urine Protein Negative (Negative); Urine Specific Gravity >=1.030 (1.005-1.030); Urine pH 5.5 (5.0-7.0)
[2021-08-20 17:24] LABS: Absolute Lymphocytes (CBC) 2.6 K/uL (0.7-4.9); Hematocrit 47.1 % (36.0-45.0); Lymphocytes % 37.3 % (15.3-44.8); MPV 8.3 fL (7.6-11.3); RBC Red Blood Cell Count 5.12 M/uL (3.86-4.86)
[2021-08-20 17:29] LABS: Protime INR 0.97
[2021-08-20 17:49] LABS: ALT/SGPT 33 U/L (12-78); AST/SGOT 30 U/L (15-37); Alkaline Phosphatase 100 U/L (45-117); BUN Blood Urea Nitrogen 14 mg/dL (7-18); Bicarbonate 29 mmol/L (21-32); Bilirubin Total 0.5 mg/dL (0.2-1.0); Glucose Level 117 mg/dL (74-106); Magnesium 2.1 mg/dL (1.8-2.4); NT PRO-BNP 257 pg/mL (<125); Potassium 3.7 mmol/L (3.5-5.1); Protein, Total 8.6 g/dL (6.4-8.2); Sodium Level 139 mmol/L (136-145)
[2021-08-20 18:07] LABS: Bilirubin Direct < 0.1 mg/dL (0-0.2)
--- NOTE | 2021-08-20 18:09 | RAD REPORT ---
EXAM DESCRIPTION: Kristyn Single View08/20/2021 5:06 pm CLINICAL HISTORY: Syncope COMPARISON: none FINDINGS: The lungs appear clear of acute infiltrate. The heart is normal size IMPRESSION: No acute abnormalities displayed
[2021-08-20 18:23] LABS: SARS-COV-2 RT PCR NEGATIVE (NEGATIVE)
--- NOTE | 2021-08-20 19:15 | EDPHYS ---
Physician Documentation [facility] Name: Toshia Barone Age: 66 yrs Sex: Female : 1955 Arrival Date: 08/20/2021 Time: 16:01 Bed 30 Private MD: ED Physician Juwan Katz HPI: 08/20 16:44 This 66 yrs old Female presents to ER via Ambulatory with complaints of Near pm1 Syncope, Doesn't Feel Right. 16:44 The patient presents with feeling faint. Onset: The symptoms/episode began/occurred 2 pm1 week(s) ago. Context: just prior to the episode the patient experienced Diarrhea this AM. Modifying factors: the symptoms are aggravated by changing position. Associated signs and symptoms: Pertinent positives: Diarrhea x 1 today, Pertinent negatives: chest pain, nausea, shortness of breath, vomiting, on and off abdominal pain. Severity of symptoms: in the emergency department the symptoms are unchanged. 16:44 The patient has experienced similar episodes in the past, a few times. The patient has pm1 not recently seen a physician. 66-year-old patient presents to the ER with complaints of generalized weakness for the past 2-3 weeks. Patient reports weakness feels like she is faint and is worsened with change in position. Patient reports one episode of diarrhea this AM. No vomiting. No chest pain or shortness of breath. Historical: - Allergies: 16:27 methylphenidate HCl; jh6 16:27 PENICILLINS; 6 16:27 Reglan; 6 16:27 Ritalin; jh6 - PMHx: 16:27 B12 deficiency; CHF; COPD; CVA; DVT; fatty liver; GERD; Hyperlipidemia; Hypertension; jh6 Hypothyroidism; Kidney stones; Myocardial infarction; Pancreatitis; TIA; - Immunization history:: Adult Immunizations up to date, Client reports receiving the 2nd dose of the Covid vaccine. - Social history:: Smoking status: Patient denies any tobacco usage or history of. ROS: 16:44 Constitutional: Negative for fever, chills, and weight loss, Cardiovascular: Negative pm1 for chest pain, palpitations, and edema, Respiratory: Negative for shortness of breath, cough, wheezing, and pleuritic chest pain, Abdomen/GI: Negative for abdominal pain, nausea, vomiting, diarrhea, and constipation, Back: Negative for injury and pain, MS/Extremity: Negative for injury and deformity, Skin: Negative for injury, rash, and discoloration. 16:44 Neuro: Positive for generalized weakness, Negative for dizziness, headache, numbness, tingling. 16:44 All other systems are negative. Exam: 16:44 Constitutional: This is a well developed, well nourished patient who is awake, alert, pm1 and in no acute distress. Head/Face: Normocephalic, atraumatic. 16:44 Cardiovascular: Regular rate and rhythm with a normal S1 and S2. No gallops, murmurs, or rubs. Normal PMI, no JVD. No pulse deficits. Respiratory: Lungs have equal breath sounds bilaterally, clear to auscultation and percussion. No rales, rhonchi or wheezes noted. No increased work of breathing, no retractions or nasal flaring. 16:44 Skin: Warm, dry with normal turgor. Normal color with no rashes, no lesions, and no evidence of cellulitis. MS/ Extremity: Pulses equal, no cyanosis. Neurovascular intact. Full, normal range of motion. 16:44 Eyes: Exam is negative for acute changes, Periorbital structures: appear normal, Pupils: no acute changes, Extraocular movements: no acute changes. 16:44 ENT: Mouth: no acute changes, Lips: normal, moist, Oral mucosa: normal, pink and intact, moist. 16:44 Abdomen/GI: Exam negative for acute changes, Inspection: abdomen appears normal, Palpation: abdomen is soft and non-tender, in all quadrants. 16:44 Neuro: Exam negative for acute changes, Orientation: is normal, Mentation: is normal, Motor: is normal, moves all fours. Vital Signs: 16:24 BP 171 / 79; Pulse 65; Resp 18; Temp 97.6(TE); Pulse Ox 99% ; Weight 82.55 kg; Height 5 jh6 ft. 5 in. (165.10 cm); Pain 2/10; 16:40 BP 135 / 71 Supine; Pulse 67; ss7 16:45 BP 142 / 73 Sitting; Pulse 66; ss7 16:45 BP 134 / 86 Standing; Pulse 75; ss7 18:00 BP 141 / 86; Pulse 62; Resp 18; Pulse Ox 98% on R/A; ss7 19:00 BP 153 / 80; Pulse 64; Resp 18; Pulse Ox 100% on R/A; ss7 16:24 Body Mass Index 30.29 (82.55 kg, 165.10 cm) 6 MDM: 16:41 Patient medically screened. pm1 19:07 ED course: Patient's generalized weakness and fatigue can be explained with patient's pm1 noncompliance with her levothyroxine. Patient with mild dehydration present based on ketones in urine. Patient does not have an IV at the moment. Offered her IV fluids but she is comfortable with drinking fluids at home instead of getting an IV started. 19:07 Data reviewed: vital signs. Data interpreted: Pulse oximetry: on room air is 98 %. pm1 Interpretation: normal. Counseling: I had a detailed discussion with the patient and/or guardian regarding: the historical points, exam findings, and any diagnostic results supporting the discharge/admit diagnosis, lab results, radiology results, the need for outpatient follow up, to return to the emergency department if symptoms worsen or persist or if there are any questions or concerns that arise at home, Discussed with the patient the importance of compliance with levothyroxine. Recommended patient to follow up with PCP for further management of her thyroid medication. 08/20 16:42 Order name: Basic Metabolic Panel pm1 08/20 16:42 Order name: CBC with Diff pm1 08/20 16:42 Order name: LFT's pm1 08/20 16:42 Order name: Magnesium; Complete Time: 18:40 pm1 08/20 16:42 Order name: NT PRO-BNP; Complete Time: 18:40 pm1 08/20 16:42 Order name: PT-INR; Complete Time: 17:32 pm1 08/20 16:42 Order name: Troponin HS; Complete Time: 18:40 pm1 08/20 16:43 Order name: TSH; Complete Time: 18:40 pm1 08/20 16:43 Order name: Basic Metabolic Panel; Complete Time: 18:40 EDMS 08/20 16:43 Order name: CBC with Automated Diff; Complete Time: 17:32 EDMS 08/20 16:43 Order name: Liver (Hepatic) Function; Complete Time: 18:40 EDMS 08/20 16:55 Order name: COVID-19/FLU A+B (Document "Date of Onset" if Symptomatic); Complete Time: pm1 18:40 08/20 17:05 Order name: Urine Dipstick-Ancillary; Complete Time: 17:21 EDMS 08/20 18:08 Order name: T4 Free; Complete Time: 18:40 EDMS 08/20 16:42 Order name: Orthostatic Blood Pressure; Complete Time: 17:15 pm1 08/20 16:42 Order name: XRAY Chest (1 view); Complete Time: 18:14 pm1 08/20 16:42 Order name: EKG; Complete Time: 16:43 pm1 08/20 16:42 Order name: Cardiac monitoring; Complete Time: 17:14 pm1 08/20 16:42 Order name: EKG - Nurse/Tech; Complete Time: 17:26 pm1 08/20 16:42 Order name: IV Saline Lock; Complete Time: 19:15 pm1 08/20 16:42 Order name: Labs collected and sent; Complete Time: 17:14 pm1 08/20 16:42 Order name: O2 Per Protocol; Complete Time: 17:14 pm1 08/20 16:42 Order name: O2 Sat Monitoring; Complete Time: 17:14 pm1 08/20 16:43 Order name: Urine Dipstick-Ancillary (obtain specimen); Complete Time: 17:14 pm1 Administered Medications: No medications were administered Disposition Summary: 08/20/21 19:15 Discharge Ordered Location: Home pm1 Problem: new pm1 Symptoms: have improved pm1 Condition: Stable pm1 Diagnosis - Weakness pm1 - Hypothyroidism, unspecified pm1 Followup: pm1 - With: Emergency Department - When: As needed - Reason: Worsening of condition Followup: pm1 - With: Private Physician - When: 2 - 3 days - Reason: Recheck today's complaints, Continuance of care, Re-evaluation by your physician Discharge Instructions: - Discharge Summary Sheet pm1 - Hypothyroidism pm1 - Weakness pm1 Forms: - Medication Reconciliation Form pm1 - Thank You Letter pm1 - Antibiotic Education pm1 - Prescription Opioid Use pm1 Addendum: 08/23/2021 09:22 Co-signature as Attending Physician, Juwan Katz MD I agree with the assessment and c burkett plan of care. Signatures: Dispatcher [employer] Juwan Pablo MD MD cha Marinas, Patrick, LEAD PRINCIPAL TECHNICAL ARCHITECT LEAD PRINCIPAL TECHNICAL ARCHITECT pm1 Hastedt, Catalina, RN RN jh6
--- NOTE | 2021-08-20 19:15 | ER ---
Nurse's Notes [facility] Name: Toshia Barone Age: 66 yrs Sex: Female : 1955 Arrival Date: 08/20/2021 Time: 16:01 Bed 30 Private MD: Diagnosis: Weakness;Hypothyroidism, unspecified Presentation: 08/20 16:24 Chief complaint: Patient states: dizziness when standing started this am when she woke [facility] up. generalized weakness x 1wk. Coronavirus screen: Vaccine status: Patient reports receiving the 2nd dose of the covid vaccine. Ebola Screen: Patient denies travel to an Ebola-affected area in the 21 days before illness onset. Initial Sepsis Screen: Does the patient meet any 2 criteria? No. Patient's initial sepsis screen is negative. Initial Sepsis Screen: Does the patient have a suspected source of infection? No. Patient's initial sepsis screen is negative. Risk Assessment: Do you want to hurt yourself or someone else? Patient reports no desire to harm self or others. Onset of symptoms was August 20, 2021. 16:24 Method Of Arrival: Ambulatory [facility] 16:24 Acuity: SHARON 3 [facility] Triage Assessment: 16:28 General: Appears in no apparent distress. Behavior is calm, cooperative. Pain: [facility] Complains of pain in mid-sternal area Pain currently is 2 out of 10 on a pain scale. Quality of pain is described as pressure, Pain began gradually, Is continuous. Historical: - Allergies: 16:27 methylphenidate HCl; [facility] 16:27 PENICILLINS; [facility] 16:27 Reglan; [facility] 16:27 Ritalin; [facility] - PMHx: 16:27 B12 deficiency; CHF; COPD; CVA; DVT; fatty liver; GERD; Hyperlipidemia; Hypertension; [facility] Hypothyroidism; Kidney stones; Myocardial infarction; Pancreatitis; TIA; - Immunization history:: Adult Immunizations up to date, Client reports receiving the 2nd dose of the Covid vaccine. - Social history:: Smoking status: Patient denies any tobacco usage or history of. Screenin:28 Abuse screen: Denies threats or abuse. Nutritional screening: No deficits noted. [facility] Tuberculosis screening: No symptoms or risk factors identified. Fall Risk Secondary diagnosis (15 points) impaired mobility. Assessment: 16:57 General: Appears in no apparent distress. comfortable, Behavior is calm, cooperative, ss7 appropriate for age. Neuro: Level of Consciousness is awake, alert, obeys commands, Oriented to person, place, time, situation. Cardiovascular: Heart tones S1 S2. Respiratory: Airway is patent Breath sounds are clear bilaterally. GI: No deficits noted. : No deficits noted. EENT: No deficits noted. Derm: No deficits noted. Musculoskeletal: No deficits noted. Vital Signs: 16:24 BP 171 / 79; Pulse 65; Resp 18; Temp 97.6(TE); Pulse Ox 99% ; Weight 82.55 kg; Height 5 [facility] ft. 5 in. (165.10 cm); Pain 2/10; 16:40 BP 135 / 71 Supine; Pulse 67; 7 16:45 BP 142 / 73 Sitting; Pulse 66; ss7 16:45 BP 134 / 86 Standing; Pulse 75; ss7 18:00 BP 141 / 86; Pulse 62; Resp 18; Pulse Ox 98% on R/A; ss7 19:00 BP 153 / 80; Pulse 64; Resp 18; Pulse Ox 100% on R/A; ss7 16:24 Body Mass Index 30.29 (82.55 kg, 165.10 cm) [facility] ED Course: 16:01 Patient arrived in ED. as 16:27 Triage completed. [facility] 16:28 Arm band placed on right wrist. Patient placed. [facility] 16:29 Bed in low position. Call light in reach. [facility] 16:34 Evangelista Sanz NP is PHCP. pm1 16:34 Juwan Katz MD is Attending Physician. pm1 16:34 Lyndsey Dtoson, RN is Primary Nurse. 7 16:57 No provider procedures requiring assistance completed. ss7 17:06 XRAY Chest (1 view) In Process Unspecified. EDMS 17:14 COVID-19/FLU A+B (Document "Date of Onset" if Symptomatic) Sent. ss7 17:14 CBC with Automated Diff Sent. ss7 17:14 Liver (Hepatic) Function Sent. ss7 17:14 Basic Metabolic Panel Sent. ss7 17:14 TSH Sent. ss7 17:14 Basic Metabolic Panel Sent. ss7 17:14 CBC with Diff Sent. ss7 17:14 LFT's Sent. ss7 17:14 Magnesium Sent. ss7 17:15 PT-INR Sent. ss7 17:15 NT PRO-BNP Sent. ss7 17:15 Troponin HS Sent. ss7 17:26 EKG done, by ED staff, reviewed by Evangelista Sanz [employer]ERGLASS FINISHER. em1 19:28 Patient did not have IV access during this emergency room visit. ss7 Administered Medications: No medications were administered Outcome: 19:15 Discharge ordered by MD. pm1 19:28 Discharged to home ss7 19:28 Condition: good 19:28 Discharge instructions given to patient, Instructed on discharge instructions, Demonstrated understanding of instructions. 19:28 Patient left the ED. ss7 Signatures: Dispatcher [employer] EDMS Eneida Dalal Eric em1 Evangelista Sanz, NATALYA F[employer]ERGLASS FINISHER pm1 Catalina Maurer, RN RN 6 Lyndsey Dotson RN RN ss7
[2021-08-20 19:35] VITALS: TEMP 97.6
[2021-08-20 19:40] VITALS: BP 153/80; O2SAT 100
--- NOTE | 2021-08-21 09:10 | EKG ---
Test Date: 2021-08-20 Test Time: 17:20:24 Customer Account Executive: BRIANA MEASUREMENT RESULTS: Intervals: Rate: 64 NH: 142 QRSD: 74 QT: 396 QTc: 408 [place]: P: 2 NH: 142 QRS: 16 T: 60 INTERPRETIVE STATEMENTS: Normal sinus rhythm Nonspecific ST and T wave abnormality Abnormal ECG Compared to ECG 09/02/2020 19:22:20 ST (T wave) deviation now present T-wave abnormality no longer present Possible ischemia no longer present Electronically Signed On 08-21-21 09:09:09 MANAGER CONTACT by Rohan Bañuelos
== END 2021-08-20 19:28 | disposition home or self-care (01) ==
LOC: ER 15:59
DX: E03.9 Hypothyroidism, unspecified (principal); I10 Essential (primary) hypertension; I50.9 Heart failure, unspecified; I25.2 Old myocardial infarction; Z20.822 Contact with and (suspected) exposure to COVID-19; Z86.73 Personal history of transient ischemic attack (TIA), and cerebral infarction without residual deficits; Z88.0 Allergy status to penicillin; Z88.8 Allergy status to other drugs, medicaments and biological substances
CPT/HCPCS: 93005; 85025; 80048; 36415; 83735; 85610; 80076; 84443; 81003; 84484; 84439; 83880; 0240U; 71045; 99284

== ENCOUNTER 2021-12-15 13:22 | Emergency (ER) | payer OTHER ==
--- OUTSIDE RECORDS SUMMARY | 2021-12-15 13:27 | XMS REPORT | Continuity of Care Document ---
:1955 Author Organization [facility] t Address [address] [place] [address] Care Team Providers Name Role Phone Mateus Miller Primary Care Physician Mateus Miller Attending Clinician Unavailable COLBY Attending Clinician Unavailable COLBY Attending Clinician Unavailable FELY Attending Clinician Unavailable Fely VAZQUEZ Attending Clinician Only, Test Attending Clinician Unavailable Sixto SALVADOR S Attending Clinician Doctor Unassigned, Name Attending Clinician Unavailable Pob, Lab Main Attending Clinician Unavailable Donavan SALVADOR, Evangelista Attending Clinician Kalyn_P Attending Clinician Unavailable Sixto SALVADOR S Admitting Clinician Kalyn_Mohan Admitting Clinician Unavailable Payers Payer Name Policy Type Policy Number Effective Date Expiration Date S [facility] STAR PLUS [id number] 2011 00:00:00 [facility] [id number] 2013 COMMUNITY PLAN - 00:00:00 [facility] (MEDICAID HMO) Problems Condition Condition Condition Status Onset Resolution Last Treating Co mments Source Name Details Category Date Date Treatment Clinician Date Restless Restless Disease Active Unive rs legs legs 9- ity of 00:00: [place] [facility] Varicose Varicose Disease Active Unive rs veins of veins of 03-13 ity of lower lower 00:00: [place] extremity extremity 00 Medi jesus Branch Right Right Disease Active Overview: Univer s ureteral ureteral 3-31 Formattin ity of stone stone 00:00: g of this 00 note Medical might be Branch different from the original. Added automatic ally from request for surgery [id number] Obesity Obesity Disease Active Univers (BMI (BMI 3-20 ity of 30-39.9) 30-39.9) 00:00: [place] 00 Medical Branch Pyelonephr Pyelonephr Disease Active U nivers itis itis 3-20 ity of 00:00: 00 Medical Branch Hemorrhoid Hemorrhoid Disease Active Overview : Univers s, s, 8-28 Formattin ity of unspecifie unspecifie 00:00: g of this [place] d d 00 note Medical hemorrhoid hemorrhoid might be Branch type type different from the original. Added automatic ally from request for surgery [id number] Seizure Seizure Disease Active Univers 8-14 ity of 00:00: [place] [facility] Chest Chest Disease Active Univers pain, pain, 4-04 ity of atypical atypical 00:00: 00 Medical Branch Chronic Chronic Disease Active Univers confusion confusion 4-04 ity of 00:00: Medical Branch Adrenal Adrenal Disease Active Univers [...] Active Univers 1-26 ity of 00:00: [place] 00 Medical Branch Personal Personal Disease Active Unive rs history of history of 3-22 it y of transient transient 00:[place] ischemic ischemic 00 Medica l attack attack Branch (TIA), and (TIA), and cerebral cerebral infarction infarction without without residual residual deficits deficits History of History of Disease Active U nivers stroke stroke 09-11 ity of 00:00: [place] [facility] Hypertensi Hypertensi Disease Active U nivers on on 09-11 ity of 00:00: [place] [facility] Cerebrovas Cerebrovas Disease Active U nivers cular cular - ity of accident accident 00:00: [place] of [...] y of s without s without 00:00[place] myelopathy myelopathy 00 Me dical Branch Displaceme Displaceme Disease Active U nivers nt of nt of 6-15 ity of lumbar lumbar 00:00: [place] interverte interverte 00 Me dical bral disc bral disc Bran ch without without myelopathy myelopathy 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 ICD10 Diagnosis Term Silverware Buffer Utility Chronic Chronic Disease Active Univers depressive depressive 5-14 it y of personalit personalit 00:[place] disorder y disorder 00 Me dical Branch Anxiety Anxiety Disease Active Overview: Univ ers state state 5-14 Formattin ity of 00:00: g of this note Medical might be Branch different from the original. ICD10 Diagnosis Term Silverware Buffer Utility Insomnia Insomnia Disease Active Overview: Un jackie 5-14 Formattin ity of 00:00: g of this [place] 00 note Medical might be Branch different from the original. ICD10 Diagnosis Term Silverware Buffer Utility Other Other Disease Active Univers chest pain chest pain 1-17 it y of 00:00: [place] 00 Medical Branch Essential Essential Disease Active Uni vers hypertensi hypertensi 1-17 it y of on, benign on, benign 00:00: [place] [facility] HLD HLD Disease Active Overview: Univer s (hyperlipi (hyperlipi -17 Formattin ity of demia) demia) 00:00: g of this [place] 00 note Medical might be Branch different from the original. ICD10 Diagnosis Term Silverware Buffer Utility gerd gerd Disease Active Univers 17 ity of 00:00: [place] 00 Medical Branch Chronic Chronic Disease Active Overview: Univ ers obstructiv obstructiv 17 Formattin ity of e airway e airway 00:00: g of this [place]ão as disease disease 00 note Medical with with might be Branch asthma asthma different from the original. ICD10 Diagnosis Term Silverware Buffer Utility Allergies, Adverse Reactions, Alerts Allergy Allergy Status Severity Reaction(s) Onset Inactive Treating Comm ents Source Name Type Date Date Clinician Penicill DA Active 2016-06 [facility] ins 07-01 00:00: [address] metoclop DA Active MO 2016-06 [facility] ramide 07-01 00:00: [address] METOCLOP DRUG Active Med Anxiety Univers RAMIDE INGREDI 7-01 ity of HCL 00:00: [place] [facility] Metoclop Propensi Active Anxiety Unive rs ramide ty to 7-01 ity of Hcl adverse 00:00: [place] reaction 00 Medical s Branch PENICILL Drug Active Med Rash Univers INS Class 4-15 ity of 00:00: [place] [facility] METHYLPH DRUG Active Anxiety Univers ENIDATE INGREDI 4-15 ity of 00:00: [place] 00 Medical Branch Penicill Propensi Active Rash Univer s ins ty to 4-15 ity of adverse 00:00: [place] reaction Medical s Branch Methylph Propensi Active Anxiety Unive rs enidate ty to 4-15 ity of adverse 00:00: [place] reaction 00 Medical s Branch Metoclop Adverse Active anxiety Common ramide Reaction Spirit HCl - [facility] PCN Adverse Active hives Common Reaction [facility] Social History Social Habit Start Date Stop Date Quantity Comments Source History of Cigarette Smoker Universi ty of tobacco use [place] [facility] [place] Exposure to Not sure University of SARS-CoV-2 [facility] (event) Branch Alcohol intake 2021-07-03 2021-07-03 0 /d [facility] 00:00:00 00:00:00 [place] [facility] Education 2019-09-10 2019-09-10 10 [facility] 00:00:00 00:00:00 [place] [facility] History SDOH 2019-09-10 2019-09-10 4 University o f Financial 00:00:00 00:00:00 [place] [facility] History [facility] Food 2019-09-10 2019-09-10 1 Univers ity of Worry 00:00:00 00:00:00 [place] [facility] History [facility] Food 2019-09-10 2019-09-10 1 Univers ity of Scarcity 00:00:00 00:00:00 [place] [facility] History SDMD 2019-09-10 2019-09-10 2 University o f Transport Med 00:00:00 00:00:00 [place] Medic al Branch History [facility] 2019-09-10 2019-09-10 2 University o f Transport Non-Med 00:00:00 00:00:00 [facility] [place] [facility] edical Branch Tobacco Comment 2017-02-03 2017-02-03 received fact Univer sity of 00:00:00 00:00:00 sheets on [facility] stopping smoking Branch Tobacco use and 2015-08-21 2015-08-21 Never used Universit y of exposure 00:00:00 00:00:00 [facility] Sex [birth year] Universit y of 00:00:00 00:00:00 [facility] Smoking Status Start Date Stop Date Source Former smoker 2015-08-21 00:00:00 2015-08-21 00:00:00 Universi ty of [place] [facility] Medications Ordered Filled Start Stop Current Ordering Indication Dosage Frequency Signature Comments Components Source Medication Medication Date Date Medication? Clinician (SIG) Name Name budesonide- Yes 2{puff} Inhale 2 Univers formoterol 2-01 Puffs 2 ity of (SYMBICORT) 14:26: (two) [place] 160-4.5 39 times Medical mcg/actuati daily. Branch on inhaler clopidogreL Yes 75mg Take 75 mg Univers (PLAVIX) 75 2-01 by mouth ity of mg tablet 14:26: daily. [place] [address] Medical Branch budesonide- Yes 2{puff} Inhale 2 Univers formoterol 2-01 Puffs 2 ity of (SYMBICORT) 14:26: (two) [place] 160-4.5 39 times Medical mcg/actuati daily. Branch on inhaler clopidogreL Yes 75mg Take 75 mg Univers (PLAVIX) 75 2-01 by mouth ity of mg tablet 14:26: daily. [place] [address] Medical Branch nystatin Yes [id number] Apply to Univers 100,000 2-01 area(s) 2 ity of unit/gram 00:00: (two) [place] cream 00 times Medical daily. Branch nystatin 0 Yes [id number] Apply to Univers 100,000 2-01 area(s) 2 ity of unit/gram 00:00: (two) [place] cream 00 times Medical daily. Branch esomeprazol Yes 40mg Take 40 mg Univers e (NEXIUM) 1-10 by mouth ity o f 40 mg 08:18: daily. [place] capsule 50 Medical Branch nitroglycer Yes .4mg Place 0.4 U nivers in 1-10 mg under ity of (NITROSTAT) 08:18: the tongue [place] 0.4 mg 50 every 5 Medical sublingual (five) Branch tablet minutes as needed for Chest pain. mometasone Yes 1{spray Use 1 Uni vers (NASONEX) 1-10 } [place] in ity of 50 08:18: each [place] mcg/actuati 50 nostril. Medi jesus on nasal Branch spray ergocalcife Yes Take by Un jackie rol, 1-10 mouth. ity of vitamin D2, 08:18: [place] (VITAMIN D 50 Medical ORAL) Branch esomeprazol Yes 40mg Take 40 mg Univers e (NEXIUM) 1-10 by mouth ity o f 40 mg 08:18: daily. [place] capsule 50 Medical Branch nitroglycer Yes .4mg Place 0.4 U nivers in 1-10 mg under ity of (NITROSTAT) 08:18: the tongue [place] 0.4 mg 50 every 5 Medical sublingual (five) Branch tablet minutes as needed for Chest pain. mometasone Yes 1{spray Use 1 Uni vers (NASONEX) 1-10 } [place] in ity of 50 08:18: each [place] mcg/actuati 50 nostril. Medi jesus on nasal Branch spray ergocalcife Yes Take by Un jackie rol, 1-10 mouth. ity of vitamin D2, 08:18: [place] (VITAMIN D 50 Medical ORAL) Branch PARoxetine Yes [id number] 10mg Take 1 Univers (PAXIL) 10 1-06 tablet by ity of mg tablet 00:00: mouth [place] 00 daily. Medical Branch oxybutynin Yes [id number] 5mg Take 1 Univers XL 5 mg 24 1-06 tablet by ity of hr tablet 00:00: mouth [place] 00 daily. Medical Branch PARoxetine Yes [id number] 10mg Take 1 Univers (PAXIL) 10 1-06 tablet by ity of mg tablet 00:00: mouth [place] 00 daily. Medical Branch oxybutynin Yes [id number] 5mg Take 1 Univers XL 5 mg 24 1-06 tablet by ity of hr tablet 00:00: mouth [place] 00 daily. Medical Branch estradioL Yes [id number] 1g Insert 1 g Univers 0.01 % (0.1 8-19 into ity of mg/gram) 00:00: vagina [place] vaginal 00 weekly. Medical cream Pea size Branch In the labia/vagi na every night for 6 weeks then 3 times a week estradioL Yes [id number] 1g Insert 1 g Univers 0.01 % (0.1 8-19 into ity of mg/gram) 00:00: vagina [place] vaginal 00 weekly. Medical cream Pea size Branch In the labia/vagi na every night for 6 weeks then 3 times a week esomeprazol Yes 40mg Take 40 mg Univers e (NEXIUM) 5-06 by mouth ity o f 40 mg 19:21: daily. [place] capsule 16 Medical Branch budesonide- Yes 2{puff} [...] Use 1 Uni vers (NASONEX) 5-06 } [place] in ity of 50 19:21: each [place] mcg/actuati 16 nostril. Medi jesus on nasal Branch spray clopidogrel Yes 75mg Take 75 mg Univers (PLAVIX) 75 5-06 by mouth ity of mg tablet 19:21: daily. [address] Branch esomeprazol Yes 40mg Take 40 mg Univers e (NEXIUM) 5-06 by mouth ity o f 40 mg 19:21: daily. [facility] 16 Medical Branch budesonide- Yes 2{puff} Inhale [...] Use 1 Uni vers (NASONEX) 5-06 } [place] in ity of 50 19:21: each [place] mcg/actuati 16 nostril. Medi jesus on nasal Branch spray clopidogrel Yes 75mg Take 75 mg Univers (PLAVIX) 75 5-06 by mouth ity of mg tablet 19:21: daily. [place] [address] Medical Branch ergocalcife Yes Take by Un jackie rol, 4-26 mouth. ity of vitamin D2, 13:56: [place] (VITAMIN D 06 Medical ORAL) Branch ergocalcife Yes Take by Un jackie rol, 4-26 mouth. ity of vitamin D2, 13:56: [place] (VITAMIN D Medical ORAL) Branch Scopolamine Scopolamine 2019- No [place] 1 patch to Common 02-18 [facility] 00:00: 00:00 behind the - [facility] 00 :[address] [facility] Tamsulosin Tamsulosin 2019-0 2019- No Tonio 1 capsule Common HCl HCl 02-17 [facility] 00:00: 00:00 - [facility] 00 :00 [facility] Nystatin Nystatin 2019-0 Yes Tonio 4 - 6 ml Common 5-11 [facility] swish, Spirit 00:00: retain in - [facility] [address] long as [facility] possible [facility] swallow oxybutynin 2019-0 Yes Right 5mg Take 1 Univ ers [...] 00 daily. Medical Branch tamsulosin 2020-0 Yes [id number] .4mg Take 1 U nivers 0.4 mg 24 3-26 capsule by ity of hr capsule 00:00: mouth [place] 00 daily. Medical Branch tamsulosin 2020-0 Yes [id number] .4mg Take 1 U nivers 0.4 mg [...] Nausea and Vomiting (N/V). ketorolac 2020-0 Yes [id number] 10mg Take 1 Un jackie 10 mg 3-22 tablet by ity of tablet 00:00: mouth [place] 00 every 6 Medical (six) Branch hours as needed for Pain (scale 7-10) (ONLY WHEN IN breakthrou gh PAIN, avoid use if pain tolerable) . ondansetron 2020-0 Yes [id number] 4mg Take 1 Univers 4 mg tablet 3-22 tablet by ity of 00:00: mouth [place] 00 every 8 Medical (eight) Branch hours as needed for Nausea and Vomiting (N/V). ketorolac 2020-0 Yes [id number] 10mg Take 1 Un jackie 10 mg 3-22 tablet by ity of tablet 00:00: mouth [place] 00 every 6 Medical (six) Branch hours as needed for Pain (scale 7-10) (ONLY WHEN IN breakthrou gh PAIN, avoid use if pain tolerable) . ketorolac 2020-0 Yes Pyelonephri 10mg Take 1 Univers 10 mg 3-22 tis tablet by ity of tablet 00:00: mouth [place] 00 every 6 Medical (six) Branch hours as needed for Pain (scale 7-10) (ONLY WHEN IN breakthrou gh PAIN, avoid use if pain tolerable) . ondansetron 2020-0 Yes [id number] 4mg Take 1 Univers 4 mg tablet 3-22 tablet by ity of 00:00: mouth [place] 00 every 8 Medical (eight) Branch hours as needed for Nausea and Vomiting (N/V). ondansetron 2020-0 Yes Pyelonephri 4mg Take 1 Univers 4 mg tablet 3-22 tis tablet by ity of 00:00: mouth [place] every 8 Medical (eight) Branch hours as needed for Nausea and Vomiting (N/V). furosemide 2020-0 Yes 40mg Take 40 mg U nivers 40 mg 1-03 by mouth ity of tablet 00:00: daily. [place] [facility] Branch furosemide 2020-0 Yes 40mg Take 40 mg U nivers 40 mg 1-03 by mouth ity of tablet 00:00: daily. [place] [facility] Branch furosemide 2020-0 Yes 40mg Take 40 mg U nivers 40 mg 1-03 by mouth ity of tablet 00:00: daily. [place] [facility] furosemide 2020-0 Yes 40mg Take 40 mg U nivers 40 mg 1-03 by mouth ity of tablet 00:00: daily. [place] [facility] Branch psyllium-callaway 2018-06 Yes [id number] 1{packe Take 1 Univers crose 0-01 t} Packet by ity of (METAMUCIL, 00:00: mouth 3 João as SUGAR,) 00 (three) Medical powder times Branch daily. docusate 2018-06 Yes [id number] 100mg Take 1 Un jackie (COLACE) 0-01 capsule by ity o f 100 mg 00:00: mouth 2 [place] capsule 00 (two) Medical times Branch daily. psyllium-callaway 2018-06 Yes [id number] 1{packe Take 1 Univers crose 0-01 t} Packet by ity of (METAMUCIL, 00:00: mouth 3 João as SUGAR,) 00 (three) Medical powder times Branch daily. docusate 2018-06 Yes [id number] 100mg Take 1 Un jackie (COLACE) 0-01 capsule by ity o f 100 mg 00:00: mouth 2 [place] capsule 00 (two) Medical times Branch daily. psyllium-callaway 2018-06 Yes Hemorrhoids [...] (two) Medic al type times Branch daily. LEVOTHYROXI Yes [id number] TAKE 1 Univers NE 50 mcg 5-07 TABLET BY ity o f tablet 00:00: MOUTH [place] 00 EVERY Medical MORNING. Branch LEVOTHYROXI Yes [id number] TAKE 1 Univers NE 50 mcg 5-07 [...] [place] 00 EVERY Medical MORNING. Branch cyanocobala 2016-06 Yes 1000ug 1 mL by U gissel min 0-05 Intramuscu ity of (VITAMIN 00:00: [...] ity o f capsule 00:00: mouth at [place] 00 bedtime. Medical Branch nortriptyli [id number] Yes 25mg Take 1 Univ ers ne 25 mg 8-17 capsule by ity o f capsule 00:00: mouth at [place] 00 bedtime. Medical Branch nortriptyli 0 Yes 25mg Take 1 Univ ers ne 25 mg 8-17 capsule by ity o f capsule 00:00: mouth at [place] 00 bedtime. Medical Branch nortriptyli 0 Yes 25mg Take 1 Univ ers ne 25 mg 8-17 capsule by ity o f capsule 00:00: mouth at [place] 00 bedtime. Medical Branch isosorbide 2017-0 Yes 30mg Take 30 mg U nivers mononitrate 4-20 by mouth ity of 30 mg 24 hr 00:00: as needed. [place] tablet 00 Medical Branch isosorbide 2017-0 Yes 30mg Take 30 mg U nivers mononitrate 4-20 by mouth ity of 30 mg 24 hr 00:00: as needed. [place] tablet 00 Medical Branch isosorbide 2017-0 Yes 30mg Take 30 mg U nivers mononitrate 4-20 by mouth ity of 30 mg 24 hr 00:00: as needed. [place] tablet 00 Medical Branch isosorbide 2017-0 Yes 30mg Take 30 mg U nivers mononitrate 4-20 by mouth ity of 30 mg 24 hr 00:00: as needed. [place] tablet 00 Medical Branch HYDROcodone Yes 1{tbl} [...] 00 needed. Medical Branch VITAMIN D2 Yes [id number] Take Unive rs 50,000 unit 4-17 50,000 ity of capsule 00:00: Units by [address] weekly. Branch VITAMIN D2 Yes [id number] Take Unive rs 50,000 unit 4-17 50,000 ity of capsule 00:00: Units by [address] weekly. Branch VITAMIN D2 Yes [id number] Take Unive rs 50,000 unit 4-17 50,000 ity of capsule 00:00: Units by [address] weekly. Branch VITAMIN D2 Yes [id number] Take Unive rs 50,000 unit 4-17 50,000 ity of capsule 00:00: Units by [address] weekly. Branch atenolol Yes 100mg Take 100 Univ ers 100 mg 4-04 mg by ity of tablet 00:00: mouth daily. Medical Branch atenolol Yes 100mg Take 100 Univ ers 100 mg 4-04 mg by ity of tablet 00:00: mouth daily. Medical Branch atenolol 2016-0 Yes 100mg Take 100 Univ ers 100 mg 4-04 mg by ity of tablet 00:00: mouth 00 daily. Medical Branch atenolol 0 Yes 100mg Take 100 Univ ers 100 mg 4-04 mg by ity of tablet 00:00: mouth 00 daily. Medical Branch aspirin 2017-0 Yes 81mg Take [...] by ity of tablet 00:00: mouth at [place] 00 bedtime. Medical Branch CREON Yes 2{tbl} Take 2 Univers 36,000-114, 4-14 Tabs by ity o f 000- 00:00: mouth 2 [place] 180,000 00 (two) Medical unit CpDR times Branch daily. [id number] Yes 2{tbl} Take 2 Univers 36,000-114, 4-14 Tabs by ity o f 000- 00:00: mouth 2 [place] 180,000 00 (two) Medical unit CpDR times Branch daily. CREON Yes 2{tbl} Take 2 Univers 36,000-114, 4-14 Tabs by ity o f 000- 00:00: mouth 2 [place] 180,000 00 (two) Medical unit CpDR times Branch daily. [id number] Yes 2{tbl} Take 2 Univers 36,000-114, 4-14 [...] Breath. Trelegy Trelegy Yes Tonio 1 puff Commo n Ellipta Ellipta [facility] Loratadine Loratadine Yes Tonio 1 tablet Common [facility] Vitamin B12 Vitamin B12 Yes Tonio 1 tablet Common [facility] Synthroid Synthroid Yes Tonio 1 tablet Common [facility] on an [facility] empty - [facility] stomach in [facility] Aspirin Aspirin Yes Tonio TAKE 1 Commo n Miller TABLET BY Spirit MOUTH - [facility] EVERY DAY [facility] Aspirin Low Aspirin Low Yes Tonio TAKE 1 Common Dose Dose Miller TABLET BY Spirit MOUTH - [facility] EVERY DAY [facility] Atenolol Atenolol Yes Tonio TAKE 1 Com mon Miller TABLET BY [facility] MOUTH - [facility] EVERY DAY [facility] Nexium Nexium Yes Tonio TAKE ONE Commo n Miller CAPSULE BY [facility] MOUTH - CHI EVERY DAY [facility] ProAir HFA ProAir HFA Yes Tonio 2 puffs as Common [facility] needed [facility] Furosemide Furosemide Yes Tonio 1 tablet Common [facility] Venlafaxine Venlafaxine Yes Tonio TAKE ONE Common HCl ER HCl ER Miller CAPSULE BY Spir it MOUTH - CHI EVERY DAY [facility] Simvastatin Simvastatin Yes Tonio 1 tablet Common [facility] in the [facility] evening [facility] Simvastatin Simvastatin Yes Tonio 1 tablet Common [facility] in the [facility] evening [facility] Levothyroxi Levothyroxi Yes Tonio TAKE 1 Common ne Sodium ne Sodium Miller TABLET BY Spirit MOUTH - [facility] EVERY DAY [facility] IN [facility] Aspirin Aspirin Yes Tonio TAKE 1 Commo n Miller TABLET BY [facility] MOUTH - CHI EVERY DAY [facility] Clopidogrel Clopidogrel Yes Tonio 1 tablet Common Bisulfate Bisulfate [facility] Spir it - [facility] Promethazin Promethazin Yes Tonio 1 ml as Common e HCl e HCl [facility] needed [facility] Gabapentin Gabapentin Yes Tonio TAKE 1 Common [facility] CAPSULE BY Spirit MOUTH - CHI EVERY DAY [facility] Zofran Zofran Yes Tonio 1 tablet Commo n Miller as needed [facility] Docusate Docusate Yes Tonio TAKE 1 Com mon Sodium Sodium [facility] CAPSULE BY Spir it MOUTH - [facility]I TWICE A St DAY [facility] Spironolact Spironolact Yes Tonio TAKE 1 Common one one [facility] TABLET BY Spirit MOUTH - [facility]I EVERY DAY [facility] Venlafaxine Venlafaxine Yes Tonio 1 capsule Common HCl ER HCl ER Miller with food Spiri t [facility] Nasonex Nasonex Yes Tonio 2 sprays Com mon [facility] in each Spirit nostril - [facility] Hydrocodone Hydrocodone Yes Tonio 1 tablet Common -Acetaminop -Acetaminop Miller as needed Spirit hen hen [facility] Clotrimazol Clotrimazol Yes Tonio 1 Common e e Miller applicatio [facility] n [facility] Immunizations Ordered Filled Immunization Date Status Comments Sourc e Immunization Name Name SARS-COV-2 COVID-19 2020-09-17 Completed Unive rsity of MODERNA VACCINE 00:00:00 [facility] [place] [facility] SARS-COV-2 COVID-19 2020-09-17 Completed Unive rsity of MODERNA VACCINE 00:00:00 [facility] [place] [facility] SARS-COV-2 COVID-19 2020-09-17 Completed Unive rsity of MODERNA VACCINE 00:00:00 [facility] [place] [facility] SARS-COV-2 COVID-19 2020-09-17 Completed Unive rsity of MODERNA VACCINE 00:00:00 [facility] [place] [facility] SARS-COV-2 COVID-19 2020-08-20 Completed Unive rsity of MODERNA VACCINE 00:00:00 [facility] [place] [facility] SARS-COV-2 COVID-19 2020-08-20 Completed Unive rsity of MODERNA VACCINE 00:00:00 [facility] [place] [facility] SARS-COV-2 COVID-19 2020-08-20 Completed Unive rsity of MODERNA VACCINE 00:00:00 [facility] [place] [facility] SARS-COV-2 COVID-19 2020-08-20 Completed Unive rsity of MODERNA VACCINE 00:00:00 [facility] [place] [facility] Influenza Virus 2007-09-22 Completed Universit y of Vaccine 00:00:00 [facility] Pneumococcal 2007-09-22 Completed University o f Polysaccharide, 00:00:00 [facility] PPSV23 (PNEUMOVAX) Branch Influenza Virus 2007-09-22 Completed Universit y of Vaccine 00:00:00 [facility] Pneumococcal 2007-09-22 Completed University o f Polysaccharide, 00:00:00 [place] Med ical PPSV23 (PNEUMOVAX) Branch Influenza Virus 2007-09-22 Completed Universit y of Vaccine 00:00:00 [facility] Pneumococcal 2007-09-22 Completed University o f Polysaccharide, 00:00:00 [place] Med ical PPSV23 (PNEUMOVAX) Branch Influenza Virus 2007-09-22 Completed Universit y of Vaccine 00:00:00 [facility] Pneumococcal 2007-09-22 Completed University o f Polysaccharide, 00:00:00 [place] Med ical PPSV23 (PNEUMOVAX) [place] Vital Signs Vital Name Observation Time Observation Value Comments Source Systolic blood 2021-07-24 20:23:00 130 mm[Hg] Univer sity of pressure [facility] Diastolic blood 2021-07-24 20:23:00 80 mm[Hg] Unive rsity [place] [facility] Heart rate 2021-07-24 20:23:00 67 /min [facility] Body temperature 2021-07-24 20:23:00 36.67 [facility] height 2021-07-24 20:23:00 165.1 cm [facility] Body weight 2021-07-24 20:23:00 83.326 kg [facility] BMI 2021-07-24 20:23:00 30.57 kg/m2 [facility] Procedures Procedure Date / Time Performed Performing Clinician [facility] e ASSIGNMENT OF BENEFITS 2020-10-27 16:14:10 Doctor Unassigned, No [facility] Plan of Care Planned Activity Planned Date Details Comments Source Future Scheduled 2021-10-16 Depression screening Uni versity of Test 00:00:00 (procedure) [code = [place] [facility] 681413681] Branch Future Scheduled 2021-10-16 Depression screening Uni versity of Test 00:00:00 (procedure) [code = [place] [facility] 124234082] Branch Future Scheduled 2021-02-21 INFLUENZA VACCINE Univer sity of Test 00:00:00 (Season Ended) [code Say Ignacio edical = INFLUENZA VACCINE Branch (Season Ended)] Future Scheduled 2021-02-21 INFLUENZA VACCINE Univer sity of Test 00:00:00 (Season Ended) [code [facility] edical = INFLUENZA VACCINE Branch (Season Ended)] Diagnostic Test 2020-10-27 COVID-19 (ID NOW Expected: Universi ty of Pending 00:00:00 RAPID TESTING) [code 10/27/2020, [facility] edical = 57560-9] Expires: Branch 10/27/2021 Future Scheduled 2017-07-17 Screening for University of Test 00:00:00 malignant neoplasm [place] [facility] lung (procedure) Branch [code = 229116251] Future Scheduled 2017-07-17 Screening for University of Test 00:00:00 malignant neoplasm [place] [facility] lung (procedure) Branch [code = 457451103] Future Scheduled 2007-02-01 Screening for University of Test 00:00:00 malignant neoplasm [place] [facility] cervix Branch (procedure) [code = 484793128] Future Scheduled 2007-02-01 Screening for University of Test 00:00:00 malignant neoplasm [place] [facility] cervix Branch (procedure) [code = 858306538] Future Scheduled 2007 Zoster Recombinant Unive rsity of Test 00:00:00 Vaccine (SHINGRIX) [place] [facility] (1 of 2) [code = Branch Zoster Recombinant Vaccine (SHINGRIX) (1 of 2)] Future Scheduled 2007 Screening for occult Uni versity of Test 00:00:00 blood in feces [facility] (procedure) [code = Branch 800120561] Future Scheduled 2007 Stool DNA-based Universi ty of Test 00:00:00 colorectal cancer [facility] [place] screening Branch (procedure) [code = 772031192615630] Future Scheduled 2007 Flexible fiberoptic Univ ersity of Test 00:00:00 sigmoidoscopy [facility] (procedure) [code = Branch 97795346] Future Scheduled 2007 Screening for University of Test 00:00:00 malignant neoplasm [place] [facility] colon (procedure) Branch [code = 857294950] Future Scheduled 2007 Screening for University of Test 00:00:00 malignant neoplasm [place] [facility] colon (procedure) Branch [code = 256356460] Future Scheduled 2007 Zoster Recombinant Unive rsity of Test 00:00:00 Vaccine (SHINGRIX) [place] [facility] (1 of 2) [code = Branch Zoster Recombinant Vaccine (SHINGRIX) (1 of 2)] Future Scheduled 2007 Screening for occult Uni versity of Test 00:00:00 blood in feces [facility] (procedure) [code = Branch 129352060] Future Scheduled 2007 Stool DNA-based Universi ty of Test 00:00:00 colorectal cancer [facility] [place] screening Branch (procedure) [code = 973306479463334] Future Scheduled 2007 Flexible fiberoptic Univ ersity of Test 00:00:00 sigmoidoscopy [facility] (procedure) [code = Branch 35194286] Future Scheduled 2007 Screening for University of Test 00:00:00 malignant neoplasm [place] [facility] of colon (procedure) Branch [code = 555937701] Future Scheduled 2007 Screening for University of Test 00:00:00 malignant neoplasm [place] [facility] colon (procedure) Branch [code = 800272523] Future Scheduled 1997 Screening for University of Test 00:00:00 malignant neoplasm [place] [facility] breast Branch (procedure) [code = 294380799] Future Scheduled 1997 Screening for University of Test 00:00:00 malignant neoplasm [place] [facility] breast Branch (procedure) [code = 958236569] Future Scheduled 1976-01-15 DTaP,Tdap,and Td Univers ity of Test 00:00:00 Vaccines (1 - Tdap) [facility] dical [code = Branch DTaP,Tdap,and Td Vaccines (1 - Tdap)] Future Scheduled 1976-01-15 DTaP,Tdap,and Td Univers ity of Test 00:00:00 Vaccines (1 - Tdap) [place] [facility] [code = Branch DTaP,Tdap,and Td Vaccines (1 - Tdap)] Future Scheduled 1975 Hepatitis C University of Test 00:00:00 screening [facility] (procedure) [code = Branch 153920012] Future Scheduled 1975 Hepatitis C University of Test 00:00:00 screening [facility] (procedure) [code = Branch 342568847] Encounters Start End Encounter Admission Attending Care Care Encounter Source Date/Time Date/Time Type Type Clinicians Facility Department ID 2021-10-30 Outpatient Miller, STLMLC STLMLC [id number] Common 15:01:00 [facility] 2021-10-04 Outpatient Miller, STLMLC STLMLC [id number] Common 08:34:01 Tonio [facility] 2021-07-18 Outpatient Miller, STLMLC STLMLC [id number] Common 14:19:22 Tonio [facility] 2021-07-18 Outpatient Miller, STLMLC STLMLC [id number] Common 13:45:16 Tonio 31128 [facility] 2021-07-18 Outpatient Miller, STLMLC STLMLC [id number] Common 12:59:49 Tonio 44581 [facility] 2021-07-18 Outpatient Miller, STLMLC STLMLC [id number] Common 12:31:12 Tonio 00114 [facility] 2021-07-18 Outpatient Miller, STLMLC STLMLC [id number] Common 12:29:23 Tonio 07564 [facility] 2021-07-18 Outpatient Miller, STLMLC STLMLC [id number] Common 12:24:50 Tonio 72358 [facility] 2021-07-18 Outpatient Miller, STLMLC STLMLC [id number] Common 12:24:31 Tonio 89519 [facility] 2021-07-18 Outpatient Miller, STLMLC STLMLC [id number] Common 12:23:16 Tonio 10440 [facility] 2021-07-18 Outpatient Miller, STLMLC STLMLC [id number] Common 12:09:35 Tonio 99415 [facility] 2021-07-18 Outpatient Miller, STLMLC STLMLC [id number] Common 12:08:47 Tonio 48173 [facility] 2021-07-18 Outpatient Miller, STLMLC STLMLC [id number] Common 12:08:21 Tonio 94003 [facility] 2021-07-18 Outpatient Miller, STLMLC STLMLC [id number] Common 12:07:39 Tonio 14658 [facility] 2021-07-18 Outpatient Miller, STLMLC STLMLC [id number] Common 11:57:35 Tonio 93990 [facility] 2021-07-18 Outpatient Miller, STLMLC STLMLC [id number] Common 11:55:10 Tonio 74289 [facility] 2021-07-18 Outpatient Miller, STLMLC STLMLC [id number] Common 11:25:38 Tonio 94031 [facility] 2021-07-18 Outpatient Miller, STLMLC STLMLC [id number] Common 11:24:24 Tonio 68972 [facility] 2021-07-18 Outpatient Miller, STLMLC STLMLC [id number] Common 11:20:51 Tonio 88346 [facility] 2021-07-18 Outpatient Miller, STLMLC STLMLC [id number] Common 11:19:05 Tonio 97256 [facility] 2021-07-18 Outpatient Miller, STLMLC STLMLC [id number] Common 11:17:38 Tonio 22387 [facility] 2021-07-18 Outpatient Miller, STLMLC STLC [id number] Common 11:10:37 Tonio 27222 [facility] 2021-07-18 Outpatient Miller, STLMLC STLMLC [id number] Common 11:07:32 Tonio 07539 [facility] 2021-07-18 Outpatient Miller, STLMLC STLMLC [id number] Common 11:07:07 Tonio 01712 [facility] 2021-07-18 Outpatient Miller, STLMLC STLMLC [id number] Common 11:06:50 Tonio 59494 [facility] 2021-07-18 Outpatient Miller, STLMLC STLMLC [id number] Common 11:04:55 Tonio 89297 [facility] 2021-07-18 Outpatient Miller, STLMLC STLMLC [id number] Common 11:00:24 Tonio 24743 [facility] 2021-12-13 2021-12-13 ambulatory STLMLC STLMLC [id number] Common 00:00:00 00:00:00 [facility] 2021-12-11 2021-12-11 ambulatory STLMLC STLMLC [id number] Common 00:00:00 00:00:00 [facility] 2021-12-10 2021-12-10 ambulatory STLMLC STLMLC [id number] Common 00:00:00 00:00:00 [facility] 2021-12-09 2021-12-09 ambulatory STLMLC STLMLC [id number] Common 00:00:00 00:00:00 [facility] 2021-12-05 2021-12-05 Outpatient R RACHELLE BOWMAN [facility] B [id number] [facility] 11:30:00 11:30:00 RACHELLE BOWMAN 22 0615 [facility] 2021-12-05 2021-12-05 Outpatient R RACHELLE BOWMAN [facility] [id number] Univers 11:30:00 11:30:00 RACHELLE BOWMAN [facility] 2021-12-04 2021-12-04 ambulatory STLMLC STLMLC [id number] Common 00:00:00 00:00:00 [facility] 2021-12-03 2021-12-03 Outpatient R RACHELLE BOWMAN [facility] B [id number] Univers 15:00:00 15:00:00 RACHELLE BOWMAN 22 0613 [facility] 2021-11-22 2021-11-22 ambulatory STLMLC STLMLC [id number] Common 00:00:00 00:00:00 [facility] 2021-11-07 2021-11-07 ambulatory STLMLC STLMLC [id number] Common 00:00:00 00:00:00 [facility] 2021-10-30 2021-10-30 ambulatory STLMLC STLMLC [id number] Common 00:00:00 00:00:00 [facility] 2021-10-23 2021-10-23 ambulatory STLMLC STLMLC [id number] Common 00:00:00 00:00:00 [facility] 2021-10-17 2021-10-17 ambulatory STLMLC STLMLC [id number] Common 00:00:00 00:00:00 [facility] 2021-10-02 2021-10-02 ambulatory STLMLC STLMLC [id number] Common 00:00:00 00:00:00 [facility] 2021-09-27 2021-09-[address] [facility] [id number]-20 Univers 14:30:00 14:30:00 ANTONIETTA Chi407 [facility] 2021-09-27 2021-09-27 [address] [facility] [id number] Univers 14:30:00 14:30:00 ANTONIETTA [facility] 2021-09-19 2021-09-19 ambulatory STLMLC STLMLC [id number] Common 00:00:00 00:00:00 [facility] 2021-09-18 2021-09-[address] [facility] [id number]-20 Univers 10:45:00 10:45:00 ANTONIETTA [id number] [facility] 2021-09-18 2021-09-[address] [facility] [id number] Univers 10:45:00 10:45:00 AN[place] [facility] 2021-09-11 2021-09-[address] [facility] [facility] [id number]-20 Univers 09:30:00 09:30:00 ANTONIETTA [id number] [facility] 2021-09-11 2021-09-[address] [facility] [id number] Univers 09:30:00 09:30:00 AN[place]TA [facility] 2021-08-30 2021-08-30 ambulatory STLMLC STLMLC [id number] Common 00:00:00 00:00:00 [facility] 2021-08-27 2021-08-27 ambulatory STLMLC STLMLC [id number] Common 00:00:00 00:00:00 [facility] 2021-08-20 2021-08-20 ambulatory STLMLC STLMLC [id number] Common 00:00:00 00:00:00 [facility] 2021-08-10 2021-08-10 ambulatory STLMLC STLMLC [id number] Common 00:00:00 00:00:00 [facility] 2021-07-30 2021-07-30 Telephone KELLIE Winkler [place] [id number] Univers 00:00:00 00:00:00 Antonietta MOBLEY [id number] it y of WOMEN'S [id number] [facility] [phone] [facility] [address] Branch 2021-07-25 2021-07-25 ambulatory STLMLC STLMLC [id number] Common 00:00:00 00:00:00 [facility] 2021-07-24 2021-07-24 Office KELLIE Winkler [place] 1.2.840.114 [id number] Univers 14:30:00 14:50:25 Visit Antonietta MOBLEY [id number] it y of WOMEN'S [id number] [facility] [phone] [facility] [address] Branch 2021-07-11 2021-07-11 ambulatory STLMLC STLMLC [id number] Common 00:00:00 00:00:00 [facility] 2021-06-27 2021-06-27 ambulatory STLMLC STLMLC [id number] Common 00:00:00 00:00:00 [facility] 2021-05-31 2021-05-31 ambulatory STLMLC STLMLC [id number] Common 00:00:00 00:00:00 [facility] 2021-05-24 2021-05-24 ambulatory STLMLC STLMLC [id number] Common 00:00:00 00:00:00 [facility] 2021-04-23 2021-04-23 ambulatory STLMLC STLMLC [id number] Common 00:00:00 00:00:00 [facility] 2021-04-16 2021-04-16 Outpatient STLMLC STLMLC [id number] Common 00:00:00 00:00:00 [facility] 2021-03-23 2021-03-23 Outpatient STLMLC STLMLC [id number] Common 00:00:00 00:00:00 [facility] 2021-03-22 2021-03-22 Outpatient STLMLC STLMLC [id number] Common 00:00:00 00:00:00 [facility] 2021-02-22 2021-02-22 Outpatient STLMLC STLMLC [id number] Common 00:00:00 00:00:00 [facility] 2021-02-15 2021-02-15 Outpatient STLMLC STLMLC [id number] Common 00:00:00 00:00:00 [facility] 2021-01-25 2021-01-25 Outpatient STLMLC STLMLC [id number] Common 00:00:00 00:00:00 [facility] 2021-01-02 2021-01-02 Outpatient STLMLC STLMLC [id number] Common 00:00:00 00:00:00 [facility] 2021-01-02 2021-01-02 Outpatient STLMLC STLMLC [id number] Common 00:00:00 00:00:00 [facility] 2021-01-01 2021-01-01 Outpatient STLMLC STLMLC [id number] Common 00:00:00 00:00:00 [facility] 2021-01-01 2021-01-01 Outpatient STLMLC STLMLC [id number] Common 00:00:00 00:00:00 [facility] 2020-12-28 2020-12-28 Outpatient STLMLC STLMLC [id number] Common 00:00:00 00:00:00 [facility] 2020-12-27 2020-12-27 Outpatient STLMLC STLMLC [id number] Common 00:00:00 00:00:00 [facility] 2020-12-26 2020-12-26 Outpatient STLMLC STLMLC [id number] Common 00:00:00 00:00:00 [facility] 2020-12-21 2020-12-21 Outpatient STLMLC STLMLC [id number] Common 00:00:00 00:00:00 [facility] 2020-12-20 2020-12-20 Outpatient STLMLC STLMLC [id number] Common 00:00:00 00:00:00 [facility] 2020-12-05 2020-12-05 Outpatient STLMLC STLMLC [id number] Common 00:00:00 00:00:00 [facility] 2020-12-04 2020-12-04 Outpatient STLMLC STLMLC [id number] Common 00:00:00 00:00:00 [facility] 2020-10-26 2020-10-26 Outpatient STLMLC STLMLC [id number] Common 00:00:00 00:00:00 [facility] 2020-10-20 2020-10-20 Outpatient STLMLC STLMLC [id number] Common 00:00:00 00:00:00 [facility] 2020-10-18 2020-10-18 Outpatient STLMLC STLMLC [id number] Common 00:00:00 00:00:00 [facility] 2020-10-16 2020-10-16 [facility] 1.2.840.114 [id number] 06:39:00 08:43:00 Encounter [place] Pan [id number] [place] [id number] Surgical [id number] [place] 07 2020-10-16 2020-10-16 Surgery [facility] 1.2.840.114 [id number] 07:51:00 08:13:00 [place] [id number] [place] 4.2.7.2.686 Surgical [id number] [place] 020 2020-10-16 2020-10-16 Orders Doctor BARB[place] 1.2.840.114 [id number] 00:00:00 00:00:00 Only Unassigned[facility]13.10 [facility] 4.2.7[facility]2.686 [id number] 009 2020-10-13 2020-10-13 Laboratory Only, Adc [facility] 1.2.840.114 [id number] 09:49:03 10:04:03 Only Test [place] 350.1.13.10 [place] 4.2.7.2.686 [place] [id number] 353 2020-10-13 2020-10-13 Orders Doctor BARB[place] 1.2.840.114 [id number] 00:00:00 00:00:00 Only Unassigned, STEVE 350.1.13.10 [place] 31598.2.7.2.686 [id number] 009 2020-10-05 2020-10-05 Outpatient STLMLC STLC [id number] Common 00:00:00 00:00:00 [facility] 2020-10-03 2020-10-03 Outpatient STLC STLC [id number] Common 00:00:00 00:00:00 [facility] 2020-10-02 2020-10-02 [facility] 1.2.840.114 [id number] 06:53:00 09:27:00 Encounter [place] Pan [id number] [place] 4.2.7.2.686 Surgical [id number] [place] 071 2020-10-02 2020-10-02 Surgery [facility] 1.2.840.114 [id number] 07:51:00 08:16:00 [place] 350.1.13.10 [place] 4.2.7.2.686 Surgical [id number] [place] 020 2020-10-02 2020-10-02 Orders Doctor [place] 1.2.840.114 [id number] 00:00:00 00:00:00 Only Unassigned, STEVE 350.1.13.10 [place] [facility] 4.2.7.2.686 [id number] 009 2020-09-29 2020-09-29 Laboratory Only, [facility] 1.2.840.114 [id number] 10:08:41 10:23:41 Only Test Viviane 350.1.13.10 [place] 4.2.7.2.686 [place] [id number] 353 2020-09-27 2020-09-27 Supervisor Finishing Room Candace, [facility] 1.2.840.114 [id number] 14:35:00 14:50:00 Visit Lab Main Viviane 350.1.13.10 [place] 4.2.7.2.686 Professio [id number] [facility] 353 [facility] 2020-09-27 2020-09-27 Orders Doctor ANGLE 1.2.840.114 [id number] 00:00:00 00:00:00 Only Unassigned, STEVE 350.1.13.10 [place] [facility] 4.2.7.2.686 [id number] 009 2020-07-07 2020-07-07 [facility] 1.2.840.114 [id number] 10:30:00 10:45:00 Visit [place] 350.1.13.10 [place] 4.2.7.2.686 Professio [id number] [facility] 188 [facility] 2020-06-27 2020-06-27 Outpatient STLMLC STLMLC [id number] Common 00:00:00 00:00:00 [facility] 2020-05-29 2020-05-29 Outpatient STLMLC STLMLC [id number] Common 00:00:00 00:00:00 [facility] 2020-05-17 2020-05-17 Outpatient STLMLC STLMLC [id number] Common 00:00:00 00:00:00 [facility] 2020-05-16 2020-05-16 Outpatient STLMLC STLMLC [id number] Common 00:00:00 00:00:00 [facility] 2020-04-27 2020-04-27 Outpatient STLMLC STLMLC [id number] Common 00:00:00 00:00:00 [facility] 2020-04-26 2020-04-26 Outpatient STLMLC STLMLC [id number] Common 00:00:00 00:00:00 [facility] 2020-04-13 2020-04-13 Outpatient STLMLC STLMLC [id number] Common 00:00:00 00:00:00 [facility] 2020-04-06 2020-04-06 Outpatient STLMLC STLMLC [id number] Common 00:00:00 00:00:00 [facility] 2020-03-30 2020-03-30 Outpatient STLMLC STLMLC [id number] Common 00:00:00 00:00:00 [facility] 2020-03-28 2020-03-28 Outpatient STLMLC STLMLC [id number] Common 00:00:00 00:00:00 [facility] 2020-03-23 2020-03-23 Outpatient STLMLC STLMLC [id number] Common 00:00:00 00:00:00 [facility] 2020-03-16 2020-03-16 Outpatient STLMLC STLMLC [id number] Common 00:00:00 00:00:00 [facility] 2020-03-02 2020-03-02 Out[facility] [id number] Common 16:00:00 16:00:[address] [facility] 2020-03-01 2020-03-01 Out[facility] [id number] Common 16:58:00 16:58:[address] [facility] 2020-02-29 2020-02-29 Out[facility] [id number] Common 09:32:00 09:32:[address] [facility] 2020-02-19 2020-02-19 Outpatient [facility] [id number] Common 11:43:00 11:43:00 [address] [facility] [address] [facility] 2020-02-18 2020-02-18 Out[facility] [id number] Common 14:30:00 14:30:00 t Specialty/U Sp rudy Specialty rology - [facility] 2020-02-17 2020-02-17 [facility] [id number] Common 11:30:00 11:30:00 t Specialty/U Sp rudy Specialty rology - [facility] 2019-12-24 2019-12-24 Out[facility] [id number] Common 09:32:00 09:32:[address] [facility] 2019-12-13 2019-12-13 [facility] [id number] Common 11:45:00 11:45:00 t [facility] [address] [facility] 2019-12-01 2019-12-01 Out[facility] [id number] Common 16:54:00 16:54:[address] [facility] 2019-11-25 2019-11-25 Out[facility] [id number] Common 16:55:00 16:55:[address] [facility] 2019-11-22 2019-11-22 Out[facility] [id number] Common 11:38:00 11:38:[address] [facility] 2019-11-19 2019-11-19 Out[facility] [id number] Common 16:25:00 16:25:00 t [facility] [address] [facility] 2019-11-18 2019-11-18 Out[facility] [id number] Common 16:23:00 16:23:[address] [facility] 2019-11-18 2019-11-18 Out[facility] [id number] Common 10:45:00 10:45:[address] [facility] 2019-11-08 2019-11-08 Out[facility] [id number] Common 14:04:00 14:04:00 t [facility] [address] [facility] 2019-11-05 2019-11-05 Out[facility] [id number] Common 14:36:00 14:36:00 [address] [facility] [address] [facility] 2019-11-01 2019-11-01 Out[facility] [id number] Common 11:35:00 11:35:[address] [facility] 2019-10-27 2019-10-27 Out[facility] [id number] Common 13:30:00 13:30:[address] [facility] 2019-10-26 2019-10-26 Out[facility] [id number] Common 08:59:00 08:59:[address] [facility] 2019-10-25 2019-10-25 Out[facility] [id number] Common 08:37:00 08:37:[address] [facility] 2019-10-14 2019-10-14 [facility] [id number] Common 15:00:00 15:00:[address] [facility] 2019-10-12 2019-10-12 [facility] [id number] Common 09:50:00 09:50:[address] [facility] 2019-09-17 2019-09-17 [facility] [id number] Common 08:05:00 08:05:[address] [facility] 2019-08-27 2019-08-27 [facility] [id number] Common 14:30:00 14:30:00 t Specialty/U Sp rudy Specialty rology - [facility] /[facility]rology Clinic [facility] 2019-08-19 2019-08-19 Out[facility] [id number] Common 11:00:00 11:00:[address] [facility] 2019-08-05 2019-08-05 [facility] [id number] Common 09:15:00 09:15:[address] [facility] 2019-08-03 2019-08-03 Out[facility] [id number] Common 14:40:00 14:40:00 t [facility] [address] [facility] 2019-07-29 2019-07-29 Out[facility] [id number] Common 13:23:00 13:23:[address] [facility] 2019-07-19 2019-07-19 Out[facility] [id number] Common 13:59:00 13:59:[address] [facility] 2019-07-14 2019-07-14 Out[facility] [id number] Common 13:18:00 13:18:[address] [facility] 2019-07-06 2019-07-06 [facility] [id number] Common 10:00:00 10:00:[address] [facility] 2019-05-17 2019-05-17 Out[facility] [id number] Common 13:30:00 13:30:[address] [facility] 2019-03-30 2019-03-30 Outpatient [facility] [id number] Common 15:00:00 15:00:00 t Specialty/U Sp rudy Specialty rology - [facility] 2019-03-23 2019-03-23 Out[facility] [id number] Common 08:47:00 08:47:00 t Specialty/U Sp rudy Specialty rology - [facility] 2019-03-22 2019-03-22 Outpatient [facility] [id number] Common 16:57:00 16:57:[address] [facility] 2019-03-17 2019-03-17 Outpatient [facility] [id number] Common 09:45:00 09:45:[address] [facility] 2019-03-04 2019-03-04 Out[facility] [id number] Common 11:00:00 11:00:00 t Specialty/U Sp rudy Specialty rology - [facility] 2019-03-01 2019-03-01 Outpatient [facility] [id number] Common 11:00:00 11:00:[address] [facility] 2019-02-23 2019-02-23 [facility] [id number] Common 13:15:00 13:15:[address] [facility] 2019-02-15 2019-02-15 [facility] [id number] Common 09:54:00 09:54:00 t Specialty/U Sp rudy Specialty rology - [facility] [facility] 2019-02-08 2019-02-08 [id number] Common 13:00:00 13:00:00 t Specialty/U Sp rudy Specialty rology - [facility] 2019-02-01 2019-02-01 [facility] [id number] Common 14:15:00 14:15:00 t Specialty/U Sp rudy Specialty rology - [facility] 2019-01-27 2019-01-27 [id number] Common 10:00:00 10:00:[address] [facility] 2018-12-08 2018-12-08 [id number] Common 13:00:00 13:00:[address] [facility] 2018-12-07 2018-12-07 [facility] [id number] Common 16:17:00 16:17:[address] Family - [facility] 2018-12-03 2018-12-03 [facility] [id number] Common 09:15:00 09:15:[address] [facility] 2018-10-19 2018-10-19 [facility] [id number] Common 16:30:00 16:30:[address] [facility] 2018-10-01 2018-10-01 [facility] [id number] Common 13:52:00 13:52:[address] [facility] 2018-09-14 2018-09-14 [facility] [id number] Common 08:34:00 08:34:[address] [facility] 2018-09-10 2018-09-10 [facility] [id number] Common 14:45:00 14:45:[address] [facility] 2018-08-26 2018-08-26 [facility] [id number] Common 16:26:00 16:26:[address] [facility] 2018-08-25 2018-08-25 [facility] [id number] Common 10:00:00 10:00:[address] [facility] 2018-08-19 2018-08-19 [facility] [id number] Common 08:22:00 08:22:[address] [facility] 2018-07-16 2018-07-16 [facility] [id number] Common 13:00:00 13:00:[address] [facility] 2018-03-25 2018-03-25 [facility] [id number] Common 10:15:00 10:15:[address] [facility] 2018-02-03 2018-02-03 [facility] [id number] Common 09:02:00 09:02:[address] [facility] 2018-01-23 2018-01-23 [facility] [id number] Common 10:00:00 10:00:[address] [facility] 2017-12-23 2017-12-23 [facility] [id number] Common 10:30:00 10:30:[address] [facility] 2017-12-16 2017-12-16 [facility] [id number] Common 15:15:00 15:15:[address] [facility] 2017-11-04 2017-11-04 [facility] [id number] Common 10:00:00 10:00:[address] [facility] 2016-05-14 2016-05-14 Outpatient Raju_P [facility] [id number] [place] 03:16:00 03:16:00 [id number] da Medical [...] GH.........160-189 mg/dL VERY HIGH.........>/ = 190 mg/dL [id number] 08:02:00 Test Item Value Reference Range Interpretation [...] LDL (test MG/DL 0-99 code = LDL) [id number] 07:51:00 Test Item Value Reference Range Interpretation Comments MAGNESIUM (test code = MAG) 2.0 MG/DL 1.6-2.3 N PROTHROMBIN [id number] 07:37:00 Test Item Value Reference Range Interpretation [...] syste oscar embolism. 3.0 - 4.5 PTT [id number] 07:37:00 Test Item Value Reference Range Interpretation Comments PTT ACTIVATED (test code = APTT) 26.7 SECONDS 22.0-33.0 N [id number] 01:26:00 Test Item Value Reference Range Interpretation Comments TROPONIN-I (test code = TROPI) < 0.012 NG/ML 0.012-0.033 L HEPATIC FUNCTION [id number] 18:44:00 Test Item Value Reference Range Interpretation [...] 77 UNITS/L 38-126 N ALKP) BASIC METABOLIC [id number] 18:15:00 Test Item Value Reference Range Interpretation [...] code = 8.9 MG/DL 8.4-10.2 N CA) [id number] 18:15:00 Test Item Value Reference Range Interpretation Comments TROPONIN-I (test code = TROPI) < 0.012 NG/ML 0.012-0.033 L BASIC METABOLIC [id number] 18:03:00 Test Item Value Reference Range Interpretation [...] code = 8.9 MG/DL 8.4-10.2 N CA) [id number] 18:03:00 Test Item Value Reference Range Interpretation Comments TROPONIN-I (test code = TROPI) NG/ML 0.0-0.045 CBC W/O [id number] 17:39:00 Test Item Value Reference Range Interpretation [...]
[2021-12-15 13:56] LABS: Urine Blood 1+ (Negative); Urine Glucose Negative (Negative); Urine Protein 1+ (Negative); Urine Specific Gravity >=1.030 (1.005-1.030); Urine pH 5.5 (5.0-7.0)
[2021-12-15 14:08] LABS: Absolute Lymphocytes (CBC) 2.5 K/uL (0.7-4.9); Hematocrit 44.4 % (36.0-45.0); Lymphocytes % 41.8 % (15.3-44.8); MPV 8.8 fL (7.6-11.3)
[2021-12-15] MEDS ORDERED: MORPHINE 4 MG/ML SYR ONE (14:16)
[2021-12-15] MEDS ORDERED: ONDANSETRON 4 MG/2 ML VIAL ONE (14:16)
[2021-12-15] MEDS ORDERED: NA CHLORIDE 0.9% 1,000 ML ONE (14:16)
[2021-12-15 14:26] LABS: Bilirubin Total 1.2 mg/dL (0.2-1.0); Potassium 3.7 mmol/L (3.5-5.1); Protein, Total 8.3 g/dL (6.4-8.2)
[2021-12-15 14:38] LABS: Urine Bacteria 20-50 /HPF (<20); Urine Mucus 1+ /HPF (NONE SEEN)
--- NOTE | 2021-12-15 15:14 | RAD REPORT ---
EXAM DESCRIPTION: CTAbdomen Pelvis W Contrast - 12/15/2021 3:04 pm CLINICAL HISTORY: LUQ abdominal pain COMPARISON: Abdomen Pelvis W Contrast dated 01/24/2020; Abdomen Pelvis W Contrast dated 08/26/2019; Abdomen Pelvis W Contrast dated 12/31/2018; Abdomen Pelvis W Contrast dated 08/04/2016 TECHNIQUE: CT of the abdomen and pelvis was performed. All CT scans are performed using dose optimization technique as appropriate and may include automated exposure control or mA/KV adjustment according to patient size. FINDINGS: Lower chest: No acute abnormality. Liver: Hepatic steatosis Biliary: Cholecystectomy Stomach: No significant focal abnormality. Duodenum: No significant focal abnormality. Pancreas: No significant abnormality. Spleen: No significant abnormality. Adrenal: No suspicious lesions. Kidney/ureter: No hydronephrosis. No renal calculi. Too small to characterize and/or benign appearing renal lesions are noted. Retroperitoneum: No retroperitoneal adenopathy. Vascular: No aneurysm. Atherosclerosis. Bowel: No significant focal abnormality. Normal appendix. Peritoneum: No ascites or free air. Small fat containing umbilical hernia. Bladder: Grossly unremarkable. Reproductive: No adnexal masses. Bones: No acute fracture. Other: n/a IMPRESSION: No acute intra-abdominal or pelvic finding. Normal appendix.
--- NOTE | 2021-12-15 15:23 | EDPHYS ---
Physician Documentation [facility] Name: Toshia Barone Age: 66 yrs Sex: Female : 1955 Arrival Date: 12/15/2021 Time: 13:23 Bed 17 Private MD: Paul [facility] ED Physician Harvey Angel HPI: 12/15 13:41 This 66 yrs old Female presents to ER via Ambulatory with complaints of pm1 Abdominal Pain, Nausea/Vomiting/Diarrhea. 13:41 The patient presents with abdominal pain in the left upper quadrant. Onset: The pm1 symptoms/episode began/occurred 3 day(s) ago. The symptoms do not radiate. Associated signs and symptoms: Pertinent positives: nausea, vomiting, and diarrhea, Pertinent negatives: dysuria, fever. The symptoms are described as crampy. Modifying factors: The symptoms are alleviated by nothing, the symptoms are aggravated by food. Severity of pain: in the emergency department the pain is actually worse. The patient has not experienced similar symptoms in the past. The patient has not recently seen a physician. Historical: - Allergies: 13:35 methylphenidate HCl; ld1 13:35 PENICILLINS; ld1 13:35 Reglan; ld1 13:35 Ritalin; ld1 - PMHx: 13:35 B12 deficiency; Kidney stones; fatty liver; COPD; CVA; Myocardial infarction; ld1 Pancreatitis; Hyperlipidemia; DVT; GERD; TIA; Hypertension; CHF; Hypothyroidism; - PSHx: 13:35 Total abdominal hysterectomy; ld1 - Immunization history:: Adult Immunizations up to date, Client reports receiving the 2nd dose of the Covid vaccine. - Social history:: Smoking status: Patient denies any tobacco usage or history of. Patient/guardian denies using alcohol. ROS: 13:41 Constitutional: Negative for fever, chills, and weight loss, Cardiovascular: Negative pm1 for chest pain, palpitations, and edema, Respiratory: Negative for shortness of breath, cough, wheezing, and pleuritic chest pain. 13:41 Back: Negative for injury and pain, : Negative for injury, bleeding, discharge, and swelling, MS/Extremity: Negative for injury and deformity, Skin: Negative for injury, rash, and discoloration, Neuro: Negative for headache, weakness, numbness, tingling, and seizure. 13:41 Abdomen/GI: Positive for abdominal pain, nausea, vomiting, and diarrhea, Negative for constipation. 13:41 All other systems are negative. Exam: 13:41 Constitutional: This is a well developed, well nourished patient who is awake, alert, pm1 and in no acute distress. Head/Face: Normocephalic, atraumatic. 13:41 Back: No spinal tenderness. No costovertebral tenderness. Full range of motion. Skin: Warm, dry with normal turgor. Normal color with no rashes, no lesions, and no evidence of cellulitis. MS/ Extremity: Pulses equal, no cyanosis. Neurovascular intact. Full, normal range of motion. 13:41 Cardiovascular: Exam negative for acute changes, Rate: normal, Rhythm: regular, Pulses: no pulse deficits are appreciated. 13:41 Respiratory: Exam negative for acute changes, respiratory distress, shortness of breath. 13:41 Abdomen/GI: Inspection: obese Palpation: soft, in all quadrants, mild abdominal tenderness, in the left upper quadrant. 13:41 Neuro: Exam negative for acute changes, Orientation: is normal, Mentation: is normal, Motor: is normal, moves all fours. Vital Signs: 13:33 BP 158 / 82; Pulse 65; Resp 18; Temp 98.3(TE); Pulse Ox 99% on R/A; Weight 83.01 kg; ld1 Height 5 ft. 5 in. (165.10 cm); Pain 6/10; 14:30 BP 128 / 70; Pulse 65; Resp 18; Pulse Ox 100% ; ww 15:58 Pulse 62; Resp 18; Pulse Ox 99% on R/A; ww 13:33 Body Mass Index 30.45 (83.01 kg, 165.10 cm) ld1 MDM: 13:51 Patient medically screened. pm1 15:22 Data reviewed: vital signs. Counseling: I had a detailed discussion with the patient pm1 and/or guardian regarding: the historical points, exam findings, and any diagnostic results supporting the discharge/admit diagnosis, lab results, radiology results, the need for outpatient follow up, a peer specialist, to return to the emergency department if symptoms worsen or persist or if there are any questions or concerns that arise at home. 12/15 13:36 Order name: CBC with Diff; Complete Time: 14:24 ld1 12/15 13:36 Order name: CMP; Complete Time: 14:49 ld12/15 13:36 Order name: Lipase; Complete Time: 14:49 ld12/15 13:36 Order name: Urine Microscopic Only; Complete Time: 14:49 ld12/15 13:56 Order name: Urine Dipstick-Ancillary; Complete Time: 13:57 EDOR 12/15 14:46 Order name: Urine Culture EDMS 12/15 13:36 Order name: IV Saline Lock; Complete Time: 13:56 12/15 13:36 Order name: Labs collected and sent; Complete Time: 13:56 ld12/15 13:36 Order name: Urine Dipstick-Ancillary (obtain specimen); Complete Time: 13:50 ld12/15 14:57 Order name: Abdomen ; Complete Time: 15:15 EDMS Administered Medications: 14:15 Drug: NS 0.9% 1000 ml Route: IV; Rate: 1000 ml; Site: left forearm; ww 14:15 Drug: Zofran (Ondansetron) 4 mg Route: IVP; Site: left forearm; ww 14:24 Drug: morphine 4 mg Route: IVP; Infused Over: 4 mins; Site: left forearm; ww Disposition Summary: 12/15/21 15:23 Discharge Ordered Location: Home pm1 Problem: new pm1 Symptoms: have improved pm1 Condition: Stable pm1 Diagnosis - Abdominal pain, unspecified pm1 - Vomiting pm1 - Diarrhea, unspecified pm1 Followup: pm1 - With: Emergency Department - When: As needed - Reason: Worsening of condition Followup: pm1 - With: Private Physician - When: 2 - 3 days - Reason: Recheck today's complaints, Continuance of care, Re-evaluation by your physician Discharge Instructions: - Discharge Summary Sheet pm1 - Abdominal Pain, Adult pm1 - Food Choices to Help Relieve Diarrhea, Adult pm1 - Diarrhea, Adult pm1 - Vomiting, Adult pm1 Forms: - Medication Reconciliation Form pm1 - Thank You Letter pm1 - Antibiotic Education pm1 - Prescription Opioid Use pm1 Prescriptions: - Cyclobenzaprine 10 mg Oral Tablet - take 1 tablet by ORAL route every 8 hours As needed; 30 tablet; Refills: 0, pm1 Product Selection Permitted - promethazine 25 mg Oral Tablet - take 1 tablet by ORAL route every 6 hours As needed; 20 tablet; Refills: 0, pm1 Product Selection Permitted Addendum: 12/16/2021 18:00 Co-signature as Attending Physician, Harvey aguilar a2 Signatures: Dispatcher [employer] EDMS Evangelista Sanz, AUTOMOBILE RACER AUTOMOBILE RACER pm1 Harvey Angel MD MD ma2 Yareli June RN RN ld1 Kymberly Alcantara RN RN ww Corrections: (The following items were deleted from the chart) 12/15 14:57 13:57 Abdomen W/ Con+CT.RAD.BRZ ordered. EDMS EDMS
--- NOTE | 2021-12-15 15:23 | ER ---
Nurse's Notes [facility] Name: Toshia Barone Age: 66 yrs Sex: Female : 1955 Arrival Date: 12/15/2021 Time: 13:23 Bed 17 Private MD: Tonio Miller Diagnosis: Abdominal pain, unspecified;Vomiting;Diarrhea, unspecified Presentation: 12/15 13:33 Chief complaint: Patient states: I think my pancreatitis is flaring up - C/O N/V/D, mid ld1 epigastric pain radiates to back. I have been taking a lot of zofran because I am so nauseated. Pt reports GI doctor wants to do an upper GI but I am in a lot of pain, I can't wait. Coronavirus screen: At this time, the client does not indicate any symptoms associated with coronavirus-19. Ebola Screen: No symptoms or risks identified at this time. Initial Sepsis Screen: Does the patient meet any 2 criteria? No. Patient's initial sepsis screen is negative. Does the patient have a suspected source of infection? No. Patient's initial sepsis screen is negative. Risk Assessment: Do you want to hurt yourself or someone else? Patient reports no desire to harm self or others. Onset of symptoms was December 15, 2021 at 13:35. 13:33 Method Of Arrival: Ambulatory ld1 13:33 Acuity: SHARON 3 ld1 Triage Assessment: 13:35 General: Appears in no apparent distress. comfortable, Behavior is calm, cooperative, ld1 appropriate for age. Pain: Complains of pain in epigastric area Pain radiates to back Pain currently is 6 out of 10 on a pain scale. at worst was 10 out of 10 on a pain scale. Quality of pain is described as pressure. EENT: No signs and/or symptoms were reported regarding the EENT system. Neuro: Level of Consciousness is awake, alert, obeys commands, Oriented to person, place, time, situation. Cardiovascular: Capillary refill < 3 seconds Patient's skin is warm and dry. Respiratory: Airway is patent Respiratory effort is even, unlabored. GI: Abdomen is round non-distended, Reports upper abdominal pain, diarrhea, nausea, vomiting. : No signs and/or symptoms were reported regarding the genitourinary system. Derm: No signs and/or symptoms reported regarding the dermatologic system. Musculoskeletal: No signs and/or symptoms reported regarding the musculoskeletal system. Historical: - Allergies: 13:35 methylphenidate HCl; ld1 13:35 PENICILLINS; ld1 13:35 Reglan; ld1 13:35 Ritalin; ld1 - PMHx: 13:35 B12 deficiency; Kidney stones; fatty liver; COPD; CVA; Myocardial infarction; ld1 Pancreatitis; Hyperlipidemia; DVT; GERD; TIA; Hypertension; CHF; Hypothyroidism; - PSHx: 13:35 Total abdominal hysterectomy; ld1 - Immunization history:: Adult Immunizations up to date, Client reports receiving the 2nd dose of the Covid vaccine. - Social history:: Smoking status: Patient denies any tobacco usage or history of. Patient/guardian denies using alcohol. Screenin:25 Abuse screen: Denies threats or abuse. Denies injuries from another. Nutritional ww screening: No deficits noted. Tuberculosis screening: No symptoms or risk factors identified. Fall Risk None identified. Assessment: 14:24 General: Appears uncomfortable, Behavior is cooperative. Pain: Complains of pain in ww abdomen. Neuro: Level of Consciousness is awake, alert, obeys commands, Oriented to person, place, time, situation, Moves all extremities. Speech is normal. Cardiovascular: Capillary refill < 3 seconds Patient's skin is warm and dry. Chest pain is denied. Respiratory: Airway is patent Respiratory effort is even, unlabored, Respiratory pattern is regular, symmetrical. GI: Abdomen is round Abdomen is tender to palpation in epigastric area, left upper quadrant and left lower quadrant Reports nausea, vomiting. : Urine is clear. Derm: Skin is intact, is healthy with good turgor. 15:57 Reassessment: Patient appears in no apparent distress at this time. No changes from previously documented assessment. Patient and/or family updated on plan of care and expected duration. Pain level reassessed. Patient is alert, oriented x 3, equal unlabored respirations, skin warm/dry/pink. Vital Signs: 13:33 BP 158 / 82; Pulse 65; Resp 18; Temp 98.3(TE); Pulse Ox 99% on R/A; Weight 83.01 kg; ld1 Height 5 ft. 5 in. (165.10 cm); Pain 6/10; 14:30 BP 128 / 70; Pulse 65; Resp 18; Pulse Ox 100% ; ww 15:58 Pulse 62; Resp 18; Pulse Ox 99% on R/A; ww 13:33 Body Mass Index 30.45 (83.01 kg, 165.10 cm) ld1 ED Course: 13:23 Patient arrived in ED. as 13:24 Tonio Miller DO is Private Physician. as 13:35 Triage completed. ld1 13:35 Arm band placed on right wrist. ld1 13:39 Kymberly Alcantara RN is Primary Nurse. ww 13:50 Harvey Angel MD is Attending Physician. ma2 13:50 Evangelista Sanz NP is PHCP. pm1 13:51 Harvey Angel MD is Attending Physician. pm1 13:57 Initial lab(s) drawn, by me, sent to lab. Inserted saline lock: 22 gauge in left dh3 forearm, using aseptic technique. Blood collected. 14:25 Patient has correct armband on for positive identification. Bed in low position. Call ww light in reach. Side rails up X 1. Pulse ox on. NIBP on. Warm blanket given. 15:06 Abdomen In Process Unspecified. EDMS 16:10 No provider procedures requiring assistance completed. IV discontinued, intact, ww bleeding controlled, No redness/swelling at site. Pressure dressing applied. Administered Medications: 14:15 Drug: NS 0.9% 1000 ml Route: IV; Rate: 1000 ml; Site: left forearm; ww 14:15 Drug: Zofran (Ondansetron) 4 mg Route: IVP; Site: left forearm; ww 14:24 Drug: morphine 4 mg Route: IVP; Infused Over: 4 mins; Site: left forearm; ww Outcome: 15:23 Discharge ordered by . pm1 16:10 Discharged to home ambulatory. ww 16:10 Condition: stable 16:10 Discharge instructions given to patient, Instructed on discharge instructions, follow up and referral plans. medication usage, safety practices, Demonstrated understanding of instructions, follow-up care, medications, Prescriptions given X 2. 16:10 Patient left the ED. ww Signatures: Dispatcher [employer] EDMS Eneida Dalal as Evangelista Sanz, NATALYA CASEWORK SPECIALIST pm1 Stacey Arceo [facility] Harvey Angel MD MD ma2 Yareli June RN RN ld1 Kymberly Alcantara, RN RN ww
[2021-12-15 16:20] VITALS: TEMP 98.3
[2021-12-15 16:21] VITALS: BP 128/70
[2021-12-15 16:23] VITALS: O2SAT 99
== END 2021-12-15 16:10 | disposition home or self-care (01) ==
LOC: ER 13:22
DX: R10.12 Left upper quadrant pain (principal); R11.10 Vomiting, unspecified; R19.7 Diarrhea, unspecified; I10 Essential (primary) hypertension; Z87.442 Personal history of urinary calculi; Z88.0 Allergy status to penicillin; Z88.8 Allergy status to other drugs, medicaments and biological substances
CPT/HCPCS: 87088; 85025; 87086; 36415; 83690; 80053; 74177; Q9967; J7030; J2405; 81003; 81015; 96374; 96375; 99284

== ENCOUNTER 2021-12-19 10:47 | Day surgery (SDC) | payer OTHER ==
[~2021-12-19 10:47] MED LIST: D5 0.9 NS 1,000 ML IV ONE
[2021-12-19] MEDS ORDERED: NA CHLORIDE 0.9% 500 ML ONE (11:14)
[2021-12-19] MEDS ORDERED: D5 0.9 NS 1,000 ML IV ONE (12:03)
[2021-12-19 13:00] VITALS: BP 120/67; TEMP 97.5; O2SAT 97; BMI 29.9
== END 2021-12-19 14:40 | disposition home or self-care (01) ==
LOC: DS 10:47
PROVIDERS: ATTEND Internal Medicine Gastroenterology
DX: E86.0 Dehydration (principal); R11.10 Vomiting, unspecified; R13.10 Dysphagia, unspecified
CPT/HCPCS: 96365; 96366; J7042; J7040

== ENCOUNTER 2022-05-25 11:23 | Emergency (ER) | payer OTHER ==
--- OUTSIDE RECORDS SUMMARY | 2022-05-25 11:51 | XMS REPORT | Continuity of Care Document ---
:1955 Author Organization [facility] t Address [address] [place] [address] Care Team Providers Name Role Phone Tonio Miller Primary Care Physician Tonio Miller Attending Clinician Unavailable TYLER CHANG Attending Clinician Unavailable BRAEDEN DELONG Attending Clinician Unavailable TONIE MILLER Attending Clinician Unavailable Tyler Chang MD Attending Clinician Doctor Unassigned, [place] [facility] Attending Clinician Unavailable Only, Ad[facility] Test Attending Clinician Unavailable RACHELLE BOWMAN Attending Clinician Unavailable RACHELLE BOWMAN Attending Clinician Unavailable Pob, 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 Attending Clinician Unavailable OTONIEL GEIGER Attending Clinician Unavailable Otoniel Geiger PA-C Attending Clinician Amalia Malone MD Attending Clinician AMALIA MALONE Attending Clinician Unavailable SARA JOHNSON Attending Clinician Unavailable Teddy Sweeney Attending Clinician MISTY AGUIRRE Attending Clinician Unavailable Misty Aguirre MD Attending Clinician Room, João Uro Procedure Attending Clinician Unavailable Angle Elizabeth MD Attending Clinician ANGLE ELIZABETH Attending Clinician Unavailable TANG PIERCE Attending Clinician Unavailable ALBERT LEPE Attending Clinician Unavailable Tang Pierce MD Attending Clinician BENITEZ CUMMINGS Attending Clinician Unavailable Jules Gordon MD Attending Clinician JULES GORDON Attending Clinician Unavailable GEREMIAS YOST Attending Clinician Unavailable CATALINA PARKER Attending Clinician Unavailable DENNYS RICKS Attending Clinician Unavailable Braeden Delong MD Attending Clinician Jamari Hicks MD Attending Clinician [phone] Umair Arreaga DO Attending Clinician UMAIR ARREAGA Attending Clinician Unavailable Tang Messina CRNA Attending Clinician Leatha Johnson MD Attending Clinician Livia Madrigal Attending Clinician AMALIA CONTRERAS Attending Clinician Unavailable Fawad Schofield MD Attending Clinician Zee Alonzo MD Attending Clinician Amalia Contreras MD Attending Clinician Minerva Ba CRNA Attending Clinician [phone] Stalin Marquez MD Attending Clinician Ashley Valdez MD Attending Clinician Catalina Parker MD Attending Clinician IsabelP Attending Clinician Unavailable TYLER CHANG Admitting Clinician Unavailable BRAEDEN DELONG Admitting Clinician Unavailable Bernardo SALVADOR, Tyler Bush Admitting Clinician UMAIR ARREAGA Admitting Clinician Unavailable Braeden Delong MD Admitting Clinician ZEE ALONZO Admitting Clinician Unavailable Zee Alonzo MD Admitting Clinician Kalyn_Mohan Admitting Clinician Unavailable Payers Payer Name Policy Type Policy Number Effective Date Expiration Date Dio roberts [facility] [place] STAR [id number] 2011 PLUS 00:00:00 [place] [id number] 2021 Common HEALTHCARE 00:00:00 [facility] DUAL [id number] 2021 COMP HMO D SNP 00:00:00 [place] [id number] 2017 Common HEALTHCARE 00:00:00 [place] [address] [id number] 2017 Common HEALTHCARE 00:00:00 [place] [address] [id number] 2017 Common HEALTHCARE 00:00:00 [place] [address] [id number] 2017 Common HEALTHCARE 00:00:00 [place] [address] [id number] 2017 Common HEALTHCARE 00:00:00 [place] [address] [id number] 2017 Common HEALTHCARE 00:00:00 [place] [address] [id number] 2017 Common HEALTHCARE 00:00:00 [place] [address] [id number] 2017 Common HEALTHCARE 00:00:00 [place] [address] [id number] 2017 Common HEALTHCARE 00:00:00 [place] [address] [id number] 2017 Common HEALTHCARE 00:00:00 [place] [address] [id number] 2017 Common HEALTHCARE 00:00:00 [place] [address] [id number] 2017 Common HEALTHCARE 00:00:00 [facility] [id number] 2013 HEALTHCARE 00:00:00 [facility]MEDICAID [facility]) Problems Condition Condition Condition Status Onset Resolution Last Treating Co mments Source Name Details Category Date Date Treatment Clinician Date Restless Restless Disease Active Unive rs legs legs - ity of 00:00: [place] 00 Medical [...] Added automatic ally from request for surgery [id number] Pyelonephr Pyelonephr Disease Active U nivers itis itis 3-20 ity of 00:00: [place] 00 Medical Branch Hemorrhoid Hemorrhoid Disease Active Overview : Univers s, s, 8-28 Formattin ity of unspecifie unspecifie 00:00: g of this [place] d d 00 note Medical hemorrhoid hemorrhoid might be Branch type type different from the original. Added automatic ally from request for surgery [id number] Seizure Seizure Disease Active Univers 8-14 ity of 00:00: [place] 00 Medical Branch Chest Chest Disease Active Univers pain, pain, 4-04 ity of atypical atypical 00:00: [place] 00 Medical Branch Chronic Chronic Disease Active Univers confusion confusion 4-04 ity of 00:00: [place] 00 Medical Branch Hypothyroi Hypothyroi Disease Active U nivers dism dism 1-28 ity of (acquired) (acquired[place] Unstable Unstable Disease Active Unive [...] infarction without without residual residual deficits deficits Cerebrovas Cerebrovas Disease Active U nivers cular cular 3-22 ity of accident accident 00:00: [place] of right 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 Chronic Chronic Disease Active Univers coronary coronary 3-22 ity of artery artery 00:00: [place] disease disease 00 Medical Branch DM DM Disease Active Univers (diabetes (diabetes 3-22 ity of mellitus) mellitus) [place] Cervical Cervical Disease Active Unive rs spondylosi spondylosi 6-15 it y of s without s without 00:[place] myelopathy myelopathy 00 Me dical Branch Displaceme Displaceme Disease Active U nivers nt of nt of 6-15 ity of lumbar lumbar 00:00: [place] interverte interverte 00 Me dical bral disc bral disc Bran ch without without myelopathy myelopathy 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 ICD10 Diagnosis Term Slipman Utility Other Other Disease Active Univers chest pain chest pain 1-17 it y of 00:00: [place] 00 Medical Branch Essential Essential Disease Active Uni vers hypertensi hypertensi 1-17 it y of on, benign on, benign [place] HLD HLD Disease Active Overview: Univer s (hyperlipi (hyperlipi 1-17 Formattin ity of demia) demia) 00:00: g of this note Medical might be Branch different from the original. ICD10 Diagnosis Term Slipman Utility Chronic Chronic Disease Active Overview: Univ ers obstructiv obstructiv 1-17 Formattin ity of e airway e airway 00:00: g of this [place]ão as disease disease 00 note Medical with with might be Branch asthma asthma different from the original. ICD10 Diagnosis Term Slipman Utility Peripheral Peripheral Problem C ommon neuropathy neuropathy Sp rudy [facility] Chronic Chronic Problem Common pancreatit pancreatit Sp rudy is is [facility] Fatty Fatty Problem Common liver liver [facility] Insomnia Insomnia Problem Commo n [facility] Stented Stented Problem Common coronary coronary [facility] artery artery - [facility] Gastroesop GERD Problem Commo n hageal (gastroeso Spirit reflux phageal - [facility] disease reflux St disease) [facility] Degenerati Degenerati Problem C ommon on of on, Spirit lumbosacra interverte - [facility] l bral disc, St interverte lumbosacra Elvira kes bral disc 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 [facility] heart coronary - [facility] disease of artery of [facility] coronary heart Medical artery Center without angina pectoris Degenerati Degenerati Problem C ommon ve joint ve joint [facility] disease disease - [facility] Varicose Varicose Problem Commo n veins veins [facility] Hypertensi Hypertensi Problem C ommon on on [facility] Dizziness Dizziness Problem Com mon [facility] Postsurgic Postsurgic Problem C ommon al al Spirit menopause menopause - I [facility] [id number] History of Problem Co mmon transient Spirit ischemic - [facility] attack [facility] History of History of Problem C ommon cerebrovas cerebrovas Sp rudy cular cular - [facility] accident accident [facility] [id number] Adrenal Problem Commo n hypofuncti [facility] on [facility] Megaloblas Vitamin Problem Comm on tic anemia B12 Spirit due to deficiency - [facility] vitamin anemia >12< [facility] deficiency [facility] Simple Simple Problem Common renal cyst renal cyst Sp rudy [facility] [id number] Stress Problem Common disorder, Spirit acute [facility] Solitary Lung Problem Common nodule of nodule [facility] lung [facility] 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 and anxiety - [facility] depressive [facility] [id number] Vitamin D Problem Comm on deficiency [facility] Obstructiv Obstructiv Problem C ommon e sleep e sleep Spirit apnea apnea [facility] Mixed Hyperlipid Problem Commo n hyperlipid emia, [facility] emia mixed [facility] [id number] Chronic Problem Common obstructiv [facility] e - [facility] Medica l d [facility] Center type [id number] Hypothyroi Problem Com mon dism, Spirit unspecifie - [facility] d type [facility] [id number] Other Problem Common chronic [facility] pain [facility] [id number] Kidney Problem Common stones [facility] [id number] Unspecifie Problem Co mmon d Spirit abdominal - [facility] pain [facility] [id number] Gross Problem Common hematuria [facility] [id number] Lower Problem Common urinary [facility] tract [facility] symptoms ([facility] [id number] Urinary Problem Commo n incontinen Spirit ce, - [facility] unspecifie d [facility] Sinusitis Sinusitis Problem Com mon Spirit [facility] [id number] History of Problem Co mmon nephrolith [facility] iasis [facility] [id number] Suprapubic Problem Co mmon pain [facility] [id number] Painful Problem Commo n bladder [facility] spasm [facility] [id number] Obesity Problem Commo n (BMI [facility] 30-39.9) [facility] Allergies, Adverse Reactions, Alerts Allergy Allergy Status Severity Reaction(s) Onset Inactive Treating Comm ents Source Name Type Date Date Clinician Marni Jacksoni Active ne - ty to 12-05 Oral adverse 00:00: reaction 00 to drug Penicill DA Active 2016-06 [facility] ins 07-01 00:00: [address] metoclop DA Active 2016-06 [facility] ramide 07-01 00:00: [address] Penicill Propensi Active ins ty to 12-11 adverse 00:00: reaction 00 to drug METOCLOP DRUG Active Med Anxiety Univers RAMIDE INGREDI 12-21 ity of HCL 00:00: [place] 00 Medical Branch Metoclop Propensi Active Anxiety 2015-0 Unive rs ramide ty to 7-01 ity of Hcl adverse 00:00: [place] reaction 00 Medical s Branch PENICILL Drug Active Med Rash 2015-0 Univers INS Class 4-15 ity of 00:00: [place] 00 Medical Branch METHYLPH DRUG Active Anxiety 2014-0 Univers ENIDATE INGREDI 4-15 ity of 00:00: [place] 00 Medical Branch Penicill Propensi Active Rash 2014-0 Univer s ins ty to 4-15 ity of adverse 00:00: [place] reaction 00 Medical s Branch Penicill Propensi Active Rash 2014-0 Univer s ins ty to 4-15 ity of adverse 00:00: [place] reaction Medical s Branch Penicill Propensi Active Rash 2014-0 Univer s ins ty to 4-15 ity of adverse 00:00: [place] reaction 00 Medical s Branch Methylph Propensi Active Anxiety 2014-0 Unive rs enidate ty to 4-15 ity of adverse 00:00: [place] reaction 00 Medical s Branch metoclop metoclop Active anxiety Commo n ramide ramide Spirit - [facility] Social History Social Habit Start Date Stop Date Quantity Comments Source History of Current Smoker Common Spi rit - Tobacco Use [facility] Sex Assigned At Common Sp rudy - [facility] Exposure to 2022-01-19 2022-01-29 Not sure [facility] SARS-CoV-2 00:00:00 11:18:00 [facility] (event) [place] Alcohol intake 2022-01-22 2022-01-22 0 /d [facility] 00:00:00 00:00:00 [facility] [place] Cigarette 2022-01-01 2022-01-01 University of pack-years 00:00:00 00:00:00 [facility] [place] Tobacco use and 2022-01-01 2022-01-01 Smokeless tobacco Un iversity of exposure 00:00:00 00:00:00 non-user [facility] Branch Education 2019-09-10 2019-09-10 10 University 00:00:00 00:00:00 [facility] Branch History SDOH 2019-09-10 2019-09-10 4 University o f Financial 00:00:00 00:00:00 [facility] Branch History [facility] Food 2019-09-10 2019-09-10 1 Univers ity of Worry 00:00:00 00:00:00 [place] [facility] History SDOH Food 2019-09-10 2019-09-10 1 Univers ity of Scarcity 00:00:00 00:00:00 [place] [facility] History SDOH 2019-09-10 2019-09-10 2 University o f Transport Med 00:00:00 00:00:00 [place] Medic al Branch History SDGA 2019-09-10 2019-09-10 2 University o f Transport Non-Med 00:00:00 00:00:00 [place] M edical [facility] Tobacco Comment 2017-02-03 2017-02-03 received fact Univer sity of 00:00:00 00:00:00 sheets on [place] Medical stopping smoking Branch Smoking Status Start Date Stop Date Source Unknown if ever smoked Common Sp rudy - [facility] nter Current Smoker 2022-04-26 00:00:00 Common Spiri t - [facility] nter Former Smoker 2020-10-21 00:00:00 2020-10-21 00:00:00 Common S pirit - [facility] nter Never Smoker Common Spirit - [facility] nter Medications Ordered Filled Start Stop Current Ordering Indication Dosage Frequency Signature Comments Components Source Medication Medication Date Date Medication? Clinician (SIG) Name Name Vitamin B12 Vitamin B12 2021-06 No 1000ug Common (Cyanocobal (Cyanocobal 1-07 S pirit nayak) nayak) 00:00: - CHI [facility] Vitamin B12 Vitamin B12 2021-06 No 1000ug Common (Cyanocobal (Cyanocobal 1-07 S pirit nayak) nayak) 00:00: - [facility] Vitamin B12 Vitamin B12 2021-06 No 1000ug Common (Cyanocobal (Cyanocobal 1-07 S pirit nayak) nayak) 00:00: - [facility] TAKE 1 2021-06 No TABLET BY 0-19 MOUTH TWICE 00:00: A DAY FOR 7 00 DAYS Vitamin B12 Vitamin B12 2021-06 No 1000ug Common (Cyanocobal (Cyanocobal 0-05 S pirit nayak) nayak) 00:00: - [facility] Vitamin B12 Vitamin B12 2021-06 No 1000ug Common (Cyanocobal (Cyanocobal 0-05 S pirit nayak) nayak) 00:00: - [facility] 00 [facility] Vitamin B12 Vitamin B12 2021-1 No 1000ug Common (Cyanocobal (Cyanocobal 0-05 S pirit nayak) nayak) 00:00: - [facility] 00 [facility] Vitamin B12 Vitamin B12 2021-1 No 1000ug Common (Cyanocobal (Cyanocobal 0-05 S pirit nayak) nayak) 00:00: - [facility] 00 [facility] Vitamin B12 Vitamin B12 2021-1 No 1000ug Common (Cyanocobal (Cyanocobal 0-05 S pirit nayak) nayak) 00:00: - [facility] 00 [facility] Vitamin B12 Vitamin B12 2021-1 No 1000ug Common (Cyanocobal (Cyanocobal 0-05 S pirit nayak) nayak) 00:00: - [facility] 00 [facility] Vitamin B12 Vitamin B12 2021-0 No 1000ug Common (Cyanocobal (Cyanocobal 8-23 S pirit nayak) nayak) 00:00: - [facility] 00 [facility] Vitamin B12 Vitamin B12 2021-0 No 1000ug Common (Cyanocobal (Cyanocobal 8-23 S pirit nayak) nayak) 00:00: - [facility] 00 [facility] Vitamin B12 Vitamin B12 2021-0 No 1000ug Common (Cyanocobal (Cyanocobal 8-23 S pirit nayak) nayak) 00:00: - [facility] 00 [facility] Vitamin B12 Vitamin B12 2021-0 No 1000ug Common (Cyanocobal (Cyanocobal 8-23 S pirit nayak) nayak) 00:00: - [facility] 00 [facility] Vitamin B12 Vitamin B12 2021-0 No 1000ug Common (Cyanocobal (Cyanocobal 8-23 S pirit nayak) nayak) 00:00: - [facility] 00 [facility] Vitamin B12 Vitamin B12 2021-0 No 1000ug Common (Cyanocobal (Cyanocobal 8-23 S pirit nayak) nayak) 00:00: - [facility] 00 [facility] Vitamin B12 Vitamin B12 2021-0 No 1000ug Common (Cyanocobal (Cyanocobal 8-23 S pirit nayak) nayak) 00:00: - [facility] 00 [facility] 2021- No PRN, Unive rs ne 02-04 Starting ity of acetonide 13:30: 16:21 on Fri [place] (KENALOG) 00 :10 02/04/22 at [facility] jesus injection 0830, Branch Until Fri02/04/22 at 1121, Routine, Intra-op lidocaine 2021- No PRN, Univers 1% 02-04 Starting ity of (XYLOCAINE) 13:30: 16:21 on Mon João as 10 mg/mL (1 00 :10 02/04/22 at Mo dical %) 0830, Branch injection Until Fri02/04/22 at 1121, Routine, Intra-op iohexoL 2021- No PRN, Univers (OMNIPAQUE 02-04 Starting ity of 300-50 mL)) 13:30: 16:21 on Mon João as injection 00 :10 02/04/22 at [facility] jesus 0830, Branch Until Fri02/04/22 at 1121, Routine, Intra-op bupivacaine 2021- No PRN, Unive rs (preserv 02-04 Starting ity of free) 13:30: 16:21 on Fri [place] (SENSORCAIN 00 :10 02/04/22 at Mo dical E MPF) 0.25 0830, Branch % (2.5 Until Mon mg/mL) 02/04/22 at injection 1121, Routine, Intra-op lactated 2021- [facility] 8- 08-15 mL/hr, ity of infusion 12:15: 12:14 1,000 mL, João as 1,000 mL 00 :00 IV Medical Infusion, Branch ONCE, 1 dose, On Fri02/04/22 at 0715, Routine, DSU Pre-op lactated 2021- No 1000[facility] 8-15 08-15 mL/hr, ity of infusion 12:15: 12:14 1,000 mL, João as 1,000 mL 00 :00 IV Medical Infusion, Branch ONCE, 1 dose, On Fri02/04/22 at 0715, Routine, DSU Pre-op esomeprazol Yes 40mg Take 40 mg Univers e 40 mg 8-15 by mouth ity of capsule 09:21: daily. [address] Branch budesonide- Yes 2{puff} Inhale 2 Univers formoteroL 8-15 Puffs 2 ity of 160-4.5 09:21: (two) [place] mcg/actuati 06 times Medical on inhaler daily. Branch nitroglycer Yes .4mg Place 0.4 U nivers in 8-15 mg under ity of (NITROSTAT) 09:21: the tongue [place] 0.4 mg 06 every 5 Medical sublingual (five) Branch tablet minutes as needed for Chest pain. mometasone Yes 1{spray Use 1 Uni vers (NASONEX) 8-15 } [place] in ity of 50 09:21: each [place] mcg/actuati 06 nostril. Medi jesus on nasal Branch spray clopidogreL Yes 75mg Take 75 mg Univers (PLAVIX) 75 8-15 by mouth ity of mg tablet 09:21: daily. [address] Branch ergocalcife Yes Take by Uni vers rol, 8-15 mouth. ity of vitamin D2, 09:21: [place] (VITAMIN D 06 Medical ORAL) Branch scopolamine Yes 1{patch Apply 1 Univers transdermal 8-15 } Patch to ity of 1 mg over 3 09:21: area(s) João as days patch 06 every 72 Medic al (seventy-t Branch wo) hours. venlafaxine Yes 150mg Take 150 U nivers XR 150 mg 8-15 mg by ity of 24 hr 09:21: mouth in [place] capsule 06 the Medical morning. Branch esomeprazol Yes 40mg Take 40 mg Univers e 40 mg 8-15 by mouth ity of capsule 09:21: daily. [address] Branch budesonide- Yes 2{puff} Inhale 2 Univers formoteroL 8-15 Puffs 2 ity of 160-4.5 09:21: (two) [place] mcg/actuati 06 times Medical on inhaler daily. Branch nitroglycer Yes .4mg Place 0.4 U nivers in 8-15 mg under ity of (NITROSTAT) 09:21: the tongue [place] 0.4 mg 06 every 5 Medical sublingual (five) Branch tablet minutes as needed for Chest pain. mometasone Yes 1{spray Use 1 Uni vers (NASONEX) 8-15 } [place] in ity of 50 09:21: each [place] mcg/actuati 06 nostril. Medi jesus on nasal Branch spray clopidogreL Yes 75mg Take 75 mg Univers (PLAVIX) 75 8-15 by mouth ity of mg tablet 09:21: daily. [place] [address] Medical Branch ergocalcife Yes Take by Uni vers rol, 8-15 mouth. ity of vitamin D2, 09:21: [place] (VITAMIN D 06 Medical ORAL) Branch scopolamine Yes 1{patch Apply 1 Univers transdermal 8-15 } Patch to ity of 1 mg over 3 09:21: area(s) João as days patch 06 every 72 Medic al (seventy-t Branch wo) hours. venlafaxine Yes 150mg Take 150 U nivers XR 150 mg 8-15 mg by ity of 24 hr 09:21: mouth in [place] capsule 06 the Medical morning. Branch esomeprazol Yes 40mg Take 40 mg Univers e 40 mg 8-15 by mouth ity of capsule 09:21: daily. [address] Branch budesonide- Yes 2{puff} Inhale 2 Univers formoteroL 8-15 Puffs 2 ity of 160-4.5 09:21: (two) [place] mcg/actuati 06 times Medical on inhaler daily. Branch nitroglycer Yes .4mg Place 0.4 U nivers in 8-15 mg under ity of (NITROSTAT) 09:21: the tongue [place] 0.4 mg 06 every 5 Medical sublingual (five) Branch tablet minutes as needed for Chest pain. mometasone Yes 1{spray Use 1 Uni vers (NASONEX) 8-15 } [place] in ity of 50 09:21: each [place] mcg/actuati 06 nostril. Medi jesus on nasal Branch spray clopidogreL Yes 75mg Take 75 mg Univers (PLAVIX) 75 8-15 by mouth ity of mg tablet 09:21: daily. [address] Branch ergocalcife Yes Take by Uni vers rol, 8-15 mouth. ity of vitamin D2, 09:21: [place] (VITAMIN D 06 Medical ORAL) Branch scopolamine Yes 1{patch Apply 1 Univers transdermal 8-15 } Patch to ity of 1 mg over 3 09:21: area(s) João as days patch 06 every 72 Medic al (seventy-t Branch wo) hours. venlafaxine Yes 150mg Take 150 U nivers XR 150 mg 8-15 mg by ity of 24 hr 09:21: mouth in [place] capsule 06 the Medical morning. Branch esomeprazol Yes 40mg Take 40 mg Univers e 40 mg 8-15 by mouth ity of capsule 09:21: daily. [address] budesonide- Yes 2{puff} Inhale 2 Univers formoteroL 8-15 Puffs 2 ity of 160-4.5 09:21: (two) [place] mcg/actuati 06 times Medical on inhaler daily. Branch nitroglycer Yes .4mg Place 0.4 U nivers in 8-15 mg under ity of (NITROSTAT) 09:21: the tongue [place] 0.4 mg 06 every 5 Medical sublingual (five) Branch tablet minutes as needed for Chest pain. mometasone Yes 1{spray Use 1 Uni vers (NASONEX) 8-15 } [place] in ity of 50 09:21: each [place] mcg/actuati 06 nostril. Medi jesus on nasal Branch spray clopidogreL Yes 75mg Take 75 mg Univers (PLAVIX) 75 8-15 by mouth ity of mg tablet 09:21: daily. [address] ergocalcife Yes Take by Uni vers rol, 8-15 mouth. ity of vitamin D2, 09:21: [place] (VITAMIN D 06 Medical ORAL) Branch scopolamine Yes 1{patch Apply 1 Univers transdermal 8-15 } Patch to ity of 1 mg over 3 09:21: area(s) João as days patch 06 every 72 Medic al (seventy-t Branch wo) hours. venlafaxine Yes 150mg Take 150 U nivers XR 150 mg 8-15 mg by ity of 24 hr 09:21: mouth in [place] capsule 06 the Medical morning. Branch venlafaxine 2022-0 Yes 150mg Take 150 U nivers XR 150 mg 8-09 mg by ity of 24 hr 11:15: mouth in [place] capsule 29 the Medical morning. Branch venlafaxine 0 Yes 150mg Take 150 U nivers XR 150 mg 8-09 mg by ity of 24 hr 11:15: mouth in [place] capsule 29 the Medical morning. Branch nitroglycer [address] 0.4 U nivers in 8-09 mg under ity of (NITROSTAT) 11:11: the tongue [place] 0.4 mg 55 every 5 Medical sublingual (five) Branch tablet minutes as needed for Chest pain. mometasone Yes 1{spray Use 1 Uni vers (NASONEX) 01-29 } [place] in ity of 50 11:11: each [place] mcg/actuati 55 nostril. Medi jesus on nasal Branch spray nitroglycer Yes .4mg Place 0.4 U nivers in 8-09 mg under ity of (NITROSTAT) 11:11: the tongue [place] 0.4 mg 55 every 5 Medical sublingual (five) Branch tablet minutes as needed for Chest pain. mometasone Yes 1{spray Use 1 Uni vers (NASONEX) 01-29 } [place] in ity of 50 11:11: each [place] mcg/actuati 55 nostril. Medi jesus on nasal Branch spray esomeprazol Yes 40mg Take 40 mg Univers e 40 mg 01-29 by mouth ity of capsule 11:11: daily. [place] [address] Medical Branch budesonide- Yes 2{puff} Inhale 2 Univers formoteroL 01-29 Puffs 2 ity of 160-4.5 11:11: (two) [place] mcg/actuati 54 times Medical on inhaler daily. Branch clopidogreL 0 Yes 75mg Take 75 mg Univers (PLAVIX) 75 09 by mouth ity of mg tablet 11:11: daily. [place] [address] Medical Branch ergocalcife 0 Yes Take by Uni vers rol, 01-29 mouth. ity of vitamin D2, 11:11: [place] (VITAMIN D 54 Medical ORAL) Branch scopolamine Yes 1{patch Apply 1 [facility] transdermal 01-29 } Patch to ity of 1 mg over 3 11:11: area(s) [place] as days patch 54 every 72 Medic al (seventy-t Branch wo) hours. esomeprazol Yes 40mg Take 40 mg Univers e 40 mg 01-29 by mouth ity of capsule 11:11: daily. [address] Branch budesonide- Yes 2{puff} Inhale 2 Univers formoteroL 01-29 Puffs 2 ity of 160-4.5 11:11: (two) [place] mcg/actuati 54 times Medical on inhaler daily. Branch clopidogreL Yes 75mg Take 75 mg Univers (PLAVIX) 75 01-29 by mouth ity of mg tablet 11:11: daily. [address] ergocalcife Yes Take by Uni vers rol, 01-29 mouth. ity of vitamin D2, 11:11: [place] (VITAMIN D 54 Medical ORAL) Branch scopolamine Yes 1{patch Apply 1 [facility] transdermal 01-29 } Patch to ity of 1 mg over 3 11:11: area(s) [place] as days patch 54 every 72 Medic al (seventy-t Branch wo) hours. Vitamin B12 Vitamin B12 No 1000ug Common (Cyanocobal (Cyanocobal 8- S pirit nayak) nayak) 00:00: - [facility] Vitamin B12 Vitamin B12 0 No 1000ug Common (Cyanocobal (Cyanocobal 8- S pirit nayak) nayak) 00:00: - [facility] Vitamin B12 Vitamin B12 2021-0 No 1000ug Common (Cyanocobal (Cyanocobal 8-09 S pirit nayak) nayak) 00:00: - [facility] Vitamin B12 Vitamin B12 0 No 1000ug Common (Cyanocobal (Cyanocobal 8-09 S pirit nayak) nayak) 00:00: - [facility] Vitamin B12 Vitamin B12 2021-0 No 1000ug Common (Cyanocobal (Cyanocobal 8-09 S pirit nayak) nayak) 00:00: - [facility] Vitamin B12 Vitamin B12 2021-0 No 1000ug Common (Cyanocobal (Cyanocobal 8-09 S pirit nayak) nayak) 00:00: - [facility] 00 [facility] Vitamin B12 Vitamin B12 No 1000ug Common (Cyanocobal (Cyanocobal 8-09 S pirit nayak) nayak) 00:00: - [facility] Vitamin B12 Vitamin B12 No 1000ug Common (Cyanocobal (Cyanocobal 8-09 S pirit nayak) nayak) 00:00: - [facility] ondansetron Yes 4mg 4 mg, Slow Univers (ZOFRAN 01-21 IV Push, ity of (PF)) 13:05: PRN, 1 [place] injection 4 10 dose, Medical mg Starting Branch on Fri01/21/22 at 0805, Until Discontinu ed, Routine, Nausea and Vomiting (N/V), PACU ondansetron 2021- No 4mg 4 mg, Slow Univers (ZOFRAN 01-21 IV Push, ity of (PF)) 13:05: 16:12 PRN, 1 [place] injection 4 10 :25 dose, Medical mg Starting Branch on Fri01/21/22 at 0805, Until Fri01/21/22 at 1112, Routine, Nausea and Vomiting (N/V), PACU bupivacaine 2021- No PRN, Unive rs (preserv 01-21 Starting ity of free) 12:40: 12:42 on Fri (SENSORCAIN 00 :04 01/21/22 at Med ical E MPF) 0.25 0740, Branch % (2.5 Until Mon mg/mL) 01/21/22 at injection 0742, Routine, Intra-op triamcinolo Yes PRN, Univer s ne 01-21 Starting ity of acetonide 12:31: on Fri (KENALOG) 00 01/21/22 at Medic al injection 0731, Branch Until Discontinu ed, Routine, Intra-op iohexoL 2021- No PRN, Univers (OMNIPAQUE 01-21 Starting ity of 300-50 mL)) 12:31: 12:42 on Fri [place] as injection 00 :04 01/21/22 at Medic al 0731, Branch Until Fri01/21/22 at 0742, Routine, Intra-op triamcinolo 2021- No PRN, Unive rs ne 01-21 Starting ity of acetonide 12:31: 16:12 on Fri (KENALOG) 00 :25 01/21/22 at Medic al injection 0731, Branch Until Fri01/21/22 at 1112, Routine, Intra-op lidocaine 2021-0 Yes PRN, Univers 1% 01-21 Starting ity of (XYLOCAINE) 12:30: on Fri [place] 10 mg/mL (01/21/22 at Med ical %) 0730, Branch injection Until Discontinu ed, Routine, Intra-op sodium 2021-0 2021- No 30mL 30 mL, Univers citrate-cit 01-21 Oral, ONCE i ty of jaime acid 12:30: 12:10 NOW, [place] (BICITRA) 00 :00 dose, On Medica l 500-334 Fri01/21/22 Branch mg/5 mL at 0730, solution 30 Routine, mL DSU Pre-op lidocaine 2021-2021- No PRN, Univers 1% 01-21 Starting ity of (XYLOCAINE) 12:30: 16:12 on Fri [place] as 10 mg/mL (1 00 :01/21/22 at Med ical %) 0730, Branch injection Until Fri01/21/22 at 1112, Routine, Intra-op sodium 2021-0 2021- No 30mL 30 mL, Univers citrate-cit 01-21 Oral, ONCE i ty of jaime acid 12:30: 12:10 NOW, [place] (BICITRA) 00 :00 dose, On Medica l 500-334 Fri01/21/22 Branch mg/5 mL at 0730, solution 30 Routine, mL DSU Pre-op lactated 2021-0 2021- No 1000mL at 42 Unive rs ringers IV 01-21 08- mL/hr, ity of infusion 12:15: 12:09 1,000 mL, [place] as 1,000 mL 00 :00 IV Medical Infusion, Branch ONCE, 1 dose, On Fri01/21/22 at 0715, Routine, DSU Pre-op lactated 2021-0 2021- No 1000mL at 42 Unive rs ringers IV 8-01 08-01 mL/hr, ity of infusion 12:15: 12:09 1,000 mL, [place] as 1,000 mL 00 :00 IV Medical Infusion, Branch ONCE, 1 dose, On 01/21/22 at 0715, Routine, DSU Pre-op esomeprazol 0 Yes 40mg Take 40 mg Univers e 40 mg 01-21 by mouth ity of capsule 09:12: daily. [address] budesonide- Yes 2{puff} Inhale 2 Univers formoteroL 01-21 Puffs 2 ity of 160-4.5 09:12: (two) [place] mcg/actuati 24 times Medical on inhaler daily. Branch nitroglycer Yes .4mg Place 0.4 U nivers in 01-21 mg under ity of (NITROSTAT) 09:12: the tongue [place] 0.4 mg 24 every 5 Medical sublingual (five) Branch tablet minutes as needed for Chest pain. mometasone Yes 1{spray Use 1 Uni vers (NASONEX) 01-21 } [place] in ity of 50 09:12: each [place] mcg/actuati 24 nostril. Medi jesus on nasal Branch spray clopidogreL Yes 75mg Take 75 mg Univers (PLAVIX) 75 01-21 by mouth ity of mg tablet 09:12: daily. [address] ergocalcife Yes Take by Uni vers rol, 01-21 mouth. ity of vitamin D2, 09:12: [place] (VITAMIN D 24 Medical ORAL) Branch scopolamine Yes 1{patch Apply 1 Univers transdermal 01-21 } Patch to ity of 1 mg over 3 09:12: area(s) [place] as days patch 24 every 72 Medic al (seventy-t Branch wo) hours. esomeprazol Yes 40mg Take 40 mg Univers e 40 mg 01-21 by mouth ity of capsule 09:12: daily. [address] budesonide- Yes 2{puff} Inhale 2 Univers formoteroL 8- Puffs 2 ity of 160-4.5 09:12: (two) [place] mcg/actuati 24 times Medical on inhaler daily. Branch nitroglycer Yes .4mg Place 0.4 U nivers in 8-01 mg under ity of (NITROSTAT) 09:12: the tongue [place] 0.4 mg 24 every 5 Medical sublingual (five) Branch tablet minutes as needed for Chest pain. mometasone 2021-0 Yes 1{spray Use 1 Uni vers (NASONEX) 01-21 } [place] in ity of 50 09:12: each [place] mcg/actuati 24 nostril. Medi jesus on nasal Branch spray clopidogreL 0 Yes 75mg Take 75 mg Univers (PLAVIX) 75 01-21 by mouth ity of mg tablet 09:12: daily. [place] [address] Medical Branch ergocalcife Yes Take by Uni vers rol, 01-21 mouth. ity of vitamin D2, 09:12: [place] (VITAMIN D 24 Medical ORAL) Branch scopolamine Yes 1{patch Apply 1 Univers transdermal 01-21 } Patch to ity of 1 mg over 3 09:12: area(s) [place] as days patch 24 every 72 Medic al (seventy-t Branch wo) hours. esomeprazol Yes 40mg Take 40 mg Univers e 40 mg 01-21 by mouth ity of capsule 09:12: daily. [address] Branch budesonide- Yes 2{puff} Inhale 2 Univers formoteroL 01-21 Puffs 2 ity of 160-4.5 09:12: (two) [place] mcg/actuati 24 times Medical on inhaler daily. Branch nitroglycer Yes .4mg Place 0.4 U nivers in 8-01 mg under ity of (NITROSTAT) 09:12: the tongue [place] 0.4 mg 24 every 5 Medical sublingual (five) Branch tablet minutes as needed for Chest pain. mometasone 0 Yes 1{spray Use 1 Uni vers (NASONEX) 01-21 } [place] in ity of 50 09:12: each [place] mcg/actuati 24 nostril. Medi jesus on nasal Branch spray clopidogreL 0 Yes 75mg Take 75 mg Univers (PLAVIX) 75 01-21 by mouth ity of mg tablet 09:12: daily. [address] Branch ergocalcife Yes Take by Uni vers rol, 01-21 mouth. ity of vitamin D2, 09:12: [place] (VITAMIN D 24 Medical ORAL) Branch scopolamine 0 Yes 1{patch Apply 1 Univers transdermal 801 } Patch to ity of 1 mg over 3 09:12: area(s) [place] as days patch 24 every 72 Medic al (seventy-t Branch wo) hours. Vitamin B12 Vitamin B12 No 1000ug Common (Cyanocobal (Cyanocobal 7-28 S pirit nayak) nayak) 00:00: - [facility] Vitamin B12 Vitamin B12 0 No 1000ug Common (Cyanocobal (Cyanocobal 7-28 S pirit nayak) nayak) 00:00: - [facility] Vitamin B12 Vitamin B12 0 No 1000ug Common (Cyanocobal (Cyanocobal 7-28 S pirit nayak) nayak) 00:00: - [facility] Vitamin B12 Vitamin B12 0 No 1000ug Common (Cyanocobal (Cyanocobal 7-28 S pirit nayak) nayak) 00:00: - [facility] Vitamin B12 Vitamin B12 0 No 1000ug Common (Cyanocobal (Cyanocobal 7-28 S pirit nayak) nayak) 00:00: - [facility] Vitamin B12 Vitamin B12 0 No 1000ug Common (Cyanocobal (Cyanocobal 7-28 S pirit nayak) nayak) 00:00: - [facility] Vitamin B12 Vitamin B12 0 No 1000ug Common (Cyanocobal (Cyanocobal 7-28 S pirit nayak) nayak) 00:00: - [facility] Vitamin B12 Vitamin B12 0 No 1000ug Common (Cyanocobal (Cyanocobal 7-28 S pirit nayak) nayak) 00:00: - [facility] Vitamin B12 Vitamin B12 0 No 1000ug Common (Cyanocobal (Cyanocobal 7-28 S pirit nayak) nayak) 00:00: - [facility] budesonide- 0 Yes 2{puff} Inhale 2 Univers formoteroL 7-27 Puffs 2 ity of 160-4.5 10:32: (two) [place] mcg/actuati 27 times Medical on inhaler daily. Branch nitroglycer 2022-[address] 0.4 U nivers in 7-27 mg under ity of (NITROSTAT) 10:32: the tongue [place] 0.4 mg 27 every 5 Medical sublingual (five) Branch tablet minutes as needed for Chest pain. mometasone Yes 1{spray Use 1 Uni vers (NASONEX) 7 } [place] in ity of 50 10:32: each [place] mcg/actuati 27 nostril. Medi jesus on nasal Branch spray clopidogreL Yes 75mg Take 75 mg Univers (PLAVIX) 75 7 by mouth ity of mg tablet 10:32: daily. [place] [facility] Branch ergocalcife Yes Take by Uni vers rol, 01-16 mouth. ity of vitamin D2, 10:32: [place] (VITAMIN D 27 Medical ORAL) Branch scopolamine Yes 1{patch Apply 1 Univers transdermal 01-16 } Patch to ity of 1 mg over 3 10:32: area(s) [place] as days patch 27 every 72 Medic al (seventy-t Branch wo) hours. budesonide- Yes 2{puff} Inhale 2 Univers formoteroL 01-16 Puffs 2 ity of 160-4.5 10:32: (two) [place] mcg/actuati 27 times Medical on inhaler daily. Branch nitroglycer Yes .4mg Place 0.4 U nivers in 7-27 mg under ity of (NITROSTAT) 10:32: the tongue [place] 0.4 mg 27 every 5 Medical sublingual (five) Branch tablet minutes as needed for Chest pain. mometasone Yes 1{spray Use 1 Uni vers (NASONEX) 01-16 } [place] in ity of 50 10:32: each [place] mcg/actuati 27 nostril. Medi jesus on nasal Branch spray clopidogreL 0 Yes 75mg Take 75 mg Univers (PLAVIX) 75 7- by mouth ity of mg tablet 10:32: daily. [place] [facility] Branch ergocalcife Yes Take by Uni vers rol, 01-16 mouth. ity of vitamin D2, 10:32: [place] (VITAMIN D 27 Medical ORAL) Branch scopolamine Yes 1{patch Apply 1 Univers transdermal 01-16 } Patch to ity of 1 mg over 3 10:32: area(s) [place] as days patch 27 every 72 Medic al (seventy-t Branch wo) hours. bupivacaine Yes PRN, Univer s (preserv 01-07 Starting ity of free) 14:15: on [facility] (SENSORCAIN 00 01/07/22 at Mo dical E MPF) 0.25 0915, Branch % (2.5 Until mg/mL) Discontinu injection ed, Routine, Intra-op bupivacaine 2021- No PRN, Unive rs (preserv 01-0718 Starting ity of free) 14:15: 16:20 on [facility] (SENSORCAIN 00 :12 01/07/22 at Mo dical E MPF) 0.25 0915, Branch % (2.5 Until Mon mg/mL) 01/07/22 at injection 1120, Routine, Intra-op triamcinolo Yes PRN, Univer s ne 01-07 Starting ity of acetonide 13:22: on [facility] (KENALOG) 00 01/07/22 at [facility] injection 0822, Branch Until Discontinu ed, Routine, Intra-op triamcinolo 2021- No PRN, Unive rs ne 01-07 Starting ity of acetonide 13:22: 16:20 on [facility] (KENALOG) 00 :12 01/07/22 at [facility] injection 0822, Branch Until 01/07/22 at 1120, Routine, Intra-op lidocaine Yes PRN, Univers 1% 01-07 Starting ity of (XYLOCAINE) 13:21: on Fri [place] 10 mg/mL (1 00 01/07/22 at Mo dical %) 0821, Branch injection Until Discontinu ed, Routine, Intra-op lidocaine 2021- No PRN, Univers 1% 01-07 Starting ity of (XYLOCAINE) 13:21: 16:20 on Fri [place] as 10 mg/mL (1 00 :12 01/07/22 at Mo dical %) 0821, Branch injection Until 01/07/22 at 1120, Routine, Intra-op lactated 2022-0 2022- No 1000[facility] at 42 [facility] 7-18 07-18 mL/hr, ity of infusion 12:00: 12:14 1,000 mL, [place] as 1,000 mL 00 :00 IV Medical Infusion, Branch ONCE, 1 dose, On Fri01/07/22 at 0700, Routine, DSU Pre-op lactated 2021-0 2022- No 1000mL at 42 [facility] 7-18 07-18 mL/hr, ity of infusion 12:00: 12:14 1,000 mL, [place] as 1,000 mL 00 :00 IV Medical Infusion, Branch ONCE, 1 dose, On Fri01/07/22 at 0700, Routine, DSU Pre-op esomeprazol Yes 40mg Take 40 mg Univers e 40 mg 7-18 by mouth ity of capsule 09:20: daily. [address] budesonide- Yes 2{puff} Inhale 2 Univers formoteroL 7-18 Puffs 2 ity of 160-4.5 09:20: (two) [place] mcg/actuati 10 times Medical on inhaler daily. Branch nitroglycer Yes .4mg Place 0.4 U nivers in 7-18 mg under ity of (NITROSTAT) 09:20: the tongue [place] 0.4 mg 10 every 5 Medical sublingual (five) Branch tablet minutes as needed for Chest pain. mometasone Yes 1{spray Use 1 Uni vers (NASONEX) 7-18 } [place] in ity of 50 09:20: each [place] mcg/actuati 10 nostril. Medi jesus on nasal Branch spray clopidogreL Yes 75mg Take 75 mg Univers (PLAVIX) 75 -18 by mouth ity of mg tablet 09:20: daily. [address] ergocalcife Yes Take by Uni vers rol, 7-18 mouth. ity of vitamin D2, 09:20: [place] (VITAMIN D 10 Medical ORAL) [place] scopolamine Yes 1{patch Apply 1 Univers transdermal 7-18 } Patch to ity of 1 mg over 3 09:20: area(s) [place]ão as days patch 10 every 72 Medic al (seventy-t Branch wo) hours. esomeprazol Yes 40mg Take 40 mg Univers e 40 mg 7-18 by mouth ity of capsule 09:20: daily. [address] budesonide- Yes 2{puff} Inhale 2 Univers formoteroL 7-18 Puffs 2 ity of 160-4.5 09:20: (two) [place] mcg/actuati 10 times Medical on inhaler daily. Branch nitroglycer Yes .4mg Place 0.4 U nivers in 7-18 mg under ity of (NITROSTAT) 09:20: the tongue [place] 0.4 mg 10 every 5 Medical sublingual (five) Branch tablet minutes as needed for Chest pain. mometasone Yes 1{spray Use 1 Uni vers (NASONEX) 7-18 } [place] in ity of 50 09:20: each [place] mcg/actuati 10 nostril. Medi jesus on nasal Branch spray clopidogreL Yes 75mg Take 75 mg Univers (PLAVIX) 75 7-18 by mouth ity of mg tablet 09:20: daily. [address] ergocalcife Yes Take by Uni vers rol, 7-18 mouth. ity of vitamin D2, 09:20: [place] (VITAMIN D 10 Medical ORAL) Branch scopolamine Yes 1{patch Apply 1 Univers transdermal 7-18 } Patch to ity of 1 mg over 3 09:20: area(s) [place] as days patch 10 every 72 Medic al (seventy-t Branch wo) hours. esomeprazol Yes 40mg Take 40 mg Univers e 40 mg 7-18 by mouth ity of capsule 09:20: daily. [address] budesonide- Yes 2{puff} Inhale 2 Univers formoteroL 7-18 Puffs 2 ity of 160-4.5 09:20: (two) [place] mcg/actuati 10 times Medical on inhaler daily. Branch nitroglycer Yes .4mg Place 0.4 U nivers in 7-18 mg under ity of (NITROSTAT) 09:20: the tongue [place] 0.4 mg 10 every 5 Medical sublingual (five) Branch tablet minutes as needed for Chest pain. mometasone Yes 1{spray Use 1 Uni vers (NASONEX) 7-18 } [place] in ity of 50 09:20: each [place] mcg/actuati 10 nostril. Medi jesus on nasal Branch spray clopidogreL Yes 75mg Take 75 mg Univers (PLAVIX) 75 7-18 by mouth ity of mg tablet 09:20: daily. [place] [address] Medical [place] ergocalcife Yes Take by Uni vers rol, 7-18 mouth. ity of vitamin D2, 09:20: [place] (VITAMIN D 10 Medical ORAL) Branch scopolamine Yes 1{patch Apply 1 Univers transdermal -18 } Patch to ity of 1 mg over 3 09:20: area(s) [place] as days patch 10 every 72 Medic al (seventy-t Branch wo) hours. esomeprazol Yes 40mg Take 40 mg Univers e 40 mg 7-18 by mouth ity of capsule 09:20: daily. [address] esomeprazol Yes 40mg Take 40 mg Univers e 40 mg 7-18 by mouth ity of capsule 09:20: daily. [address] simvastatin Yes 40mg Take 40 mg Univers 40 mg 7-17 by mouth ity of tablet 00:00: every [place] [address] evening. [facility] simvastatin Yes 40mg Take 40 mg Univers 40 mg 7-17 by mouth ity of tablet 00:00: every [place] [address] evening. [facility] simvastatin Yes 40mg Take 40 mg Univers 40 mg 7-17 by mouth ity of tablet 00:00: every [place] [address] evening. [facility] simvastatin Yes 40mg Take 40 mg Univers 40 mg 7-17 by mouth ity of tablet 00:00: every [place] 00 evening. [facility] simvastatin Yes 40mg Take 40 mg Univers 40 mg 7-17 by mouth ity of tablet 00:00: every [place] 00 evening. [facility] simvastatin Yes 40mg Take 40 mg Univers 40 mg 7-17 by mouth ity of tablet 00:00: every [place] 00 evening. [facility] simvastatin 0 Yes 40mg Take 40 mg Univers 40 mg 7-17 by mouth ity of tablet 00:00: every [place] [address] evening. [facility] simvastatin 0 Yes 40mg Take 40 mg Univers 40 mg 7-17 by mouth ity of tablet 00:00: every [place] [address] evening. Medical Branch simvastatin 2-0 Yes 40mg Take 40 mg Univers 40 mg 7-17 by mouth ity of tablet 00:00: every [place] evening. Medical Branch simvastatin 2022-0 Yes 40mg Take 40 mg Univers 40 mg 7-17 by mouth ity of tablet 00:00: every [place] evening. Medical Branch simvastatin 2-0 Yes 40mg Take 40 mg Univers 40 mg 7-17 by mouth ity of tablet 00:00: every [place] evening. Medical Branch Vitamin B12 Vitamin B12 2021-0 No 1000ug Common (Cyanocobal (Cyanocobal 7-14 S pirit nayak) nayak) 00:00: - [facility] 00 [facility] Vitamin B12 Vitamin B12 2021-0 No 1000ug Common (Cyanocobal (Cyanocobal 7-14 S pirit nayak) nayak) 00:00: - [facility] Vitamin B12 Vitamin B12 2021-0 No 1000ug Common (Cyanocobal (Cyanocobal 7-14 S pirit nayak) nayak) 00:00: - [facility] Vitamin B12 Vitamin B12 2021-0 No 1000ug Common (Cyanocobal (Cyanocobal 7-14 S pirit nayak) nayak) 00:00: - [facility] Vitamin B12 Vitamin B12 2021-0 No 1000ug Common (Cyanocobal (Cyanocobal 7-14 S pirit nayak) nayak) 00:00: - [facility] Vitamin B12 Vitamin B12 2021-0 No 1000ug Common (Cyanocobal (Cyanocobal 7-14 S pirit nayak) nayak) 00:00: - [facility] Vitamin B12 Vitamin B12 2021-0 No 1000ug Common (Cyanocobal (Cyanocobal 7-14 S pirit nayak) nayak) 00:00: - [facility] Vitamin B12 Vitamin B12 2021-0 No 1000ug Common (Cyanocobal (Cyanocobal 7-14 S pirit nayak) nayak) 00:00: - [facility] Vitamin B12 Vitamin B12 2021-0 No 1000ug Common (Cyanocobal (Cyanocobal 7-14 S pirit nayak) nayak) 00:00: - [facility] Vitamin B12 Vitamin B12 2021-0 No 1000ug Common (Cyanocobal (Cyanocobal 7-14 S pirit nayak) nayak) 00:00: - [facility] Vitamin B12 Vitamin B12 No 1000ug Common (Cyanocobal (Cyanocobal 7-14 S pirit nayak) nayak) 00:00: - [facility] 00 [facility] Vitamin B12 Vitamin B12 No 1000ug Common (Cyanocobal (Cyanocobal 7-14 S pirit nayak) nayak) 00:00: - [facility] 00 [facility] scopolamine Yes 1{patch Apply 1 Univers transdermal 7-12 } Patch to ity of 1 mg over 3 16:55: area(s) [place] as days patch 04 every 72 Medic al (seventy-t Branch wo) hours. scopolamine Yes 1{patch Apply 1 Univers transdermal 7-12 } Patch to ity of 1 mg over 3 16:55: area(s) [place] as days patch 04 every 72 Medic al (seventy-t Branch wo) hours. esomeprazol Yes 40mg Take 40 mg Univers e 40 mg 7-12 by mouth ity of capsule 16:47: daily. [address] Branch budesonide- Yes 2{puff} Inhale 2 Univers formoteroL 7-12 Puffs 2 ity of 160-4.5 16:47: (two) [place] mcg/actuati 46 times Medical on inhaler daily. Branch nitroglycer Yes .4mg Place 0.4 U nivers in 7-12 mg under ity of (NITROSTAT) 16:47: the tongue [place] 0.4 mg 46 every 5 Medical sublingual (five) Branch tablet minutes as needed for Chest pain. mometasone Yes 1{spray Use 1 Uni vers (NASONEX) 7-12 } [place] in ity of 50 16:47: each [place] mcg/actuati 46 nostril. Medi jesus on nasal Branch spray clopidogreL Yes 75mg Take 75 mg Univers (PLAVIX) 75 7-12 by mouth ity of mg tablet 16:47: daily. [address] Branch ergocalcife Yes Take by Uni vers rol, 7-12 mouth. ity of vitamin D2, 16:47: [place] (VITAMIN D 46 Medical ORAL) Branch esomeprazol Yes 40mg Take 40 mg Univers e 40 mg 7-12 by mouth ity of capsule 16:47: daily. [address] budesonide- Yes 2{puff} Inhale 2 Univers formoteroL 7-12 Puffs 2 ity of 160-4.5 16:47: (two) [place] mcg/actuati 46 times Medical on inhaler daily. Branch nitroglycer Yes .4mg Place 0.4 U nivers in 7-12 mg under ity of (NITROSTAT) 16:47: the tongue [place] 0.4 mg 46 every 5 Medical sublingual (five) Branch tablet minutes as needed for Chest pain. mometasone Yes 1{spray Use 1 Uni vers (NASONEX) 7-12 } [place] in ity of 50 16:47: each [place] mcg/actuati 46 nostril. Medi jesus on nasal Branch spray clopidogreL Yes 75mg Take 75 mg Univers (PLAVIX) 75 7-12 by mouth ity of mg tablet 16:47: daily. [address] ergocalcife Yes Take by Uni vers rol, 7-12 mouth. ity of vitamin D2, 16:47: [place] (VITAMIN D 46 Medical ORAL) [place] scopolamine No 1mg 1 mg over 3 6-23 over 3 days 00:00: days transdermal 00 patch Azithromyci Azithromyci 2021- No QD Azithromyc n 250 MG n 250 MG 12-13-28 in 250 MG 00:00: 00:00 00 :00 ondansetron 2021-2021- No 1{tbl} Take 1 U nivers 4 mg 12-12-12 tablet by ity of disintegrat 00:00: 00:00 mouth [place] tablet 00 :00 needed. Medica l Branch ondansetron 2021- No 1{tbl} Take 1 U nivers 4 mg -11 01-12 tablet by ity of disintegrat 00:00: 00:00 [place] tablet 00 :00 needed. Medica l Branch Dose No Unknown 12-11 00:00: 00 Azithromyci Azithromyci 2022-0 2022- No 2{table Azithromyc n 500 MG n 500 MG 12-10 t} in 500 MG 00:00: 00:00 00 :00 Azithromyci Azithromyci 2-0 2022- No 2{table Azithromyc n 500 MG n 500 MG 12-10 t} in 500 MG 00:00: 00:00 00 :00 Azithromyci Azithromyci 2-0 2022- No 2{table Azithromyc n 500 MG n 500 MG 12-10 t} in 500 MG 00:00: 00:00 00 :00 prednisone 2022-0 No mg 20 mg 6-15 tablet 00:00: 00 benzonatate 2022-0 No 12mg 100 mg 6-15 capsule 00:00: 00 Dose 2022-0 No Unknown 6-15 00:00: 00 Dose 2022-0 No Unknown 6-15 00:00: 00 Dose 2022-0 No Unknown 6-15 00:00: 00 Dose 2022-0 No Unknown 6-15 00:00: 00 Dose 2022-0 No Unknown 6-15 00:00: 00 Dose 2022-0 No Unknown 6-15 00:00: 00 Dose 2022-0 No Unknown 6-15 00:00: 00 Dose 2022-0 No Unknown 6-15 00:00: 00 Scopolamine Scopolamine 2022-0 No Scopolamin 1 MG/3DAYS 1 MG/3DAYS 6-14 e 1 00:00: MG/3DAYS 00 Scopolamine Scopolamine 2-0 No Scopolamin 1 MG/3DAYS 1 MG/3DAYS 6-14 e 1 00:00: MG/3DAYS 00 Scopolamine Scopolamine 2-0 No Scopolamin 1 MG/3DAYS 1 MG/3DAYS 6-14 e 1 00:00: MG/3DAYS 00 Scopolamine Scopolamine 2-0 No Scopolamin 1 MG/3DAYS 1 MG/3DAYS 6-14 e 1 00:00: MG/3DAYS 00 Scopolamine Scopolamine 2-0 No Scopolamin 1 MG/3DAYS 1 MG/3DAYS 6-14 e 1 00:00: MG/3DAYS 00 Scopolamine Scopolamine 2022-0 No Scopolamin 1 MG/3DAYS 1 MG/3DAYS 6-14 e 1 00:00: MG/3DAYS 00 Scopolamine Scopolamine 2022-0 No Scopolamin 1 MG/3DAYS 1 MG/3DAYS 6-14 e 1 00:00: MG/3DAYS 00 Scopolamine Scopolamine 2022-0 No Scopolamin 1 MG/3DAYS 1 MG/3DAYS 6-14 e 1 00:00: MG/3DAYS 00 Scopolamine Scopolamine 2022-0 No Scopolamin 1 MG/3DAYS 1 MG/3DAYS 6-14 e 1 00:00: MG/3DAYS 00 Scopolamine Scopolamine 2022-0 No Scopolamin 1 MG/3DAYS 1 MG/3DAYS 6-14 e 1 00:00: MG/3DAYS 00 Scopolamine Scopolamine 2-0 No Scopolamin 1 MG/3DAYS 1 MG/3DAYS 6-14 e 1 00:00: MG/3DAYS 00 Scopolamine Scopolamine 2-0 No Scopolamin 1 MG/3DAYS 1 MG/3DAYS 6-14 e 1 00:00: MG/3DAYS 00 Scopolamine Scopolamine 2-0 No Scopolamin 1 MG/3DAYS 1 MG/3DAYS 6-14 e 1 00:00: MG/3DAYS 00 Scopolamine Scopolamine 2022-0 No Scopolamin 1 MG/3DAYS 1 MG/3DAYS 6-14 e 1 00:00: MG/3DAYS 00 Scopolamine Scopolamine 2022-0 No Scopolamin 1 MG/3DAYS 1 MG/3DAYS 6-14 e 1 00:00: MG/3DAYS 00 Scopolamine Scopolamine 2022-0 No Scopolamin 1 MG/3DAYS 1 MG/3DAYS 6-14 e 1 00:00: MG/3DAYS 00 Scopolamine Scopolamine 2022-0 No Scopolamin 1 MG/3DAYS 1 MG/3DAYS 6-14 e 1 00:00: MG/3DAYS 00 Vitamin B12 Vitamin B12 2021-0 No 1000ug Common (Cyanocobal (Cyanocobal 11-22 Dio nayak) 00:00: - [facility] Vitamin B12 Vitamin B12 2022-0 No 1000ug Common (Cyanocobal (Cyanocobal 6-02 S pirit nayak) nayak) 00:00: - [facility] 00 [facility] Vitamin B12 Vitamin B12 2022-0 No 1000ug Common (Cyanocobal (Cyanocobal 6-02 S pirit nayak) nayak) 00:00: - [facility] 00 [facility] Vitamin B12 Vitamin B12 2022-0 No 1000ug Common (Cyanocobal (Cyanocobal 6-02 S pirit nayak) nayak) 00:00: - [facility] 00 [facility] Vitamin B12 Vitamin B12 2-0 No 1000ug Common (Cyanocobal (Cyanocobal 6-02 S pirit nayak) nayak) 00:00: - [facility] 00 [facility] Vitamin B12 Vitamin B12 2-0 No 1000ug Common (Cyanocobal (Cyanocobal 6-02 S pirit nayak) nayak) 00:00: - [facility] 00 [facility] Vitamin B12 Vitamin B12 2-0 No 1000ug Common (Cyanocobal (Cyanocobal 6-02 S pirit nayak) nayak) 00:00: - [facility] 00 [facility] Vitamin B12 Vitamin B12 2-0 No 1000ug Common (Cyanocobal (Cyanocobal 6-02 S pirit nayak) nayak) 00:00: - [facility] 00 [facility] Vitamin B12 Vitamin B12 2-0 No 1000ug Common (Cyanocobal (Cyanocobal 6-02 S pirit nayak) nayak) 00:00: - [facility] 00 [facility] Vitamin B12 Vitamin B12 2-0 No 1000ug Common (Cyanocobal (Cyanocobal 6-02 S pirit nayak) nayak) 00:00: - [facility] 00 [facility] Vitamin B12 Vitamin B12 2022-0 No 1000ug Common (Cyanocobal (Cyanocobal 6-02 S pirit nayak) nayak) 00:00: - [facility] 00 [facility] Vitamin B12 Vitamin B12 2022-0 No 1000ug Common (Cyanocobal (Cyanocobal 6-02 S pirit nayak) nayak) 00:00: - [facility] 00 [facility] Vitamin B12 Vitamin B12 2022-0 No 1000ug Common (Cyanocobal (Cyanocobal 6-02 S pirit nayak) nayak) 00:00: - [facility] 00 [facility] Vitamin B12 Vitamin B12 2021-0 No 1000ug Common (Cyanocobal (Cyanocobal 6-02 S pirit nayak) nayak) 00:00: - [facility] 00 [facility] Vitamin B12 Vitamin B12 2021-0 No 1000ug Common (Cyanocobal (Cyanocobal 6-02 S pirit nayak) nayak) 00:00: - [facility] 00 [facility] Vitamin B12 Vitamin B12 2021-0 No 1000ug Common (Cyanocobal (Cyanocobal 6-02 S pirit nayak) nayak) 00:00: - [facility] 00 [facility] Vitamin B12 Vitamin B12 2021-0 No 1000ug Common (Cyanocobal (Cyanocobal 6-02 S pirit nayak) nayak) 00:00: - [facility] 00 [facility] Vitamin B12 Vitamin B12 2021-0 No 1000ug Common (Cyanocobal (Cyanocobal 6-02 S pirit nayak) nayak) 00:00: - [facility] 00 [facility] LINZESS 145 2021-0 Yes 1{capsu Take 1 U nivers mcg capsule 5-27 le} capsule by it y of 00:00: mouth in [place] the morning. Branch LINZESS 145 2021-0 Yes 1{capsu Take 1 U nivers mcg capsule 5-27 le} capsule by it y of 00:00: mouth in [place] the morning. Branch LINZESS 145 2021-0 Yes 1{capsu Take 1 U nivers mcg capsule 5-27 le} capsule by it y of 00:00: mouth in [place] the morning. Branch LINZESS 145 2021-0 Yes 1{capsu Take 1 U nivers mcg capsule 5-27 le} capsule by it y of 00:00: mouth in [place] the morning. Branch LINZESS 145 2021-0 Yes 1{capsu Take 1 U nivers mcg capsule 5-27 le} capsule by it y of 00:00: mouth in [place] the morning. Branch LINZESS 145 2021-0 Yes 1{capsu Take 1 U nivers mcg capsule 5-27 le} capsule by it y of 00:00: mouth in [place] the morning. Branch LINZESS 145 2021-0 Yes 1{capsu Take 1 U nivers mcg capsule 5-27 le} capsule by it y of 00:00: mouth in [place] 00 the Medical morning. Branch LINZESS 145 2021-0 Yes 1{capsu Take 1 U nivers mcg capsule 5-27 le} capsule by it y of 00:00: mouth in [place] 00 the Medical morning. Branch LINZESS 145 2021-0 Yes 1{capsu Take 1 U nivers mcg capsule 5-27 le} capsule by it y of 00:00: mouth in [place] 00 the Medical morning. Branch LINZESS 145 2021-0 Yes 1{capsu Take 1 U nivers mcg capsule 5-27 le} capsule by it y of 00:00: mouth in [place] the Medical morning. Branch LINZESS 145 2021-0 Yes 1{capsu Take 1 U nivers mcg capsule 5-27 le} capsule by it y of 00:00: mouth in [place] the Medical morning. Branch LINZESS 145 2021-0 Yes 1{capsu Take 1 U nivers mcg capsule 5-27 le} capsule by it y of 00:00: mouth in [place] the Medical morning. Branch LINZESS 145 2021-0 Yes 1{capsu Take 1 U nivers mcg capsule 5-27 le} capsule by it y of 00:00: mouth in [place] the Medical morning. Branch LINZESS 145 2021-0 Yes 1{capsu Take 1 U nivers mcg capsule 5-27 le} capsule by it y of 00:00: mouth in [place] the Medical morning. Branch LINZESS 145 2021-0 Yes 1{capsu Take 1 U nivers mcg capsule 5-27 le} capsule by it y of 00:00: mouth in [place] the Medical morning. Branch LINZESS 145 2021-0 Yes 1{capsu Take 1 U nivers mcg capsule 5-27 le} capsule by it y of 00:00: mouth in [place] the Medical morning. Branch Vitamin B12 Vitamin B12 No 1000ug Common (Cyanocobal (Cyanocobal 5-10 S pirit nayak) nayak) 00:00: - [facility] 00 [facility] Vitamin B12 Vitamin B12 0 No 1000ug Common (Cyanocobal (Cyanocobal 5-10 S pirit nayak) nayak) 00:00: - [facility] 00 [facility] Vitamin B12 Vitamin B12 0 No 1000ug Common (Cyanocobal (Cyanocobal 5-10 S pirit nayak) nayak) 00:00: - [facility] 00 [facility] Vitamin B12 Vitamin B12 2-0 No 1000ug Common (Cyanocobal (Cyanocobal 5-10 S pirit nayak) nayak) 00:00: - [facility] 00 [facility] Vitamin B12 Vitamin B12 2-0 No 1000ug Common (Cyanocobal (Cyanocobal 5-10 S pirit nayak) nayak) 00:00: - [facility] 00 [facility] Vitamin B12 Vitamin B12 2-0 No 1000ug Common (Cyanocobal (Cyanocobal 5-10 S pirit nayak) nayak) 00:00: - [facility] 00 [facility] Vitamin B12 Vitamin B12 2021-0 No 1000ug Common (Cyanocobal (Cyanocobal 5-10 S pirit nayak) nyaak) 00:00: - [facility] 00 [facility] Vitamin B12 Vitamin B12 2-0 No 1000ug Common (Cyanocobal (Cyanocobal 5-10 S pirit nayak) nayak) 00:00: - [facility] 00 [facility] Vitamin B12 Vitamin B12 2-0 No 1000ug Common (Cyanocobal (Cyanocobal 5-10 S pirit nayak) nayak) 00:00: - [facility] 00 [facility] Vitamin B12 Vitamin B12 2-0 No 1000ug Common (Cyanocobal (Cyanocobal 5-10 S pirit nayak) nayak) 00:00: - [facility] 00 [facility] Vitamin B12 Vitamin B12 2-0 No 1000ug Common (Cyanocobal (Cyanocobal 5-10 S pirit nayak) nayak) 00:00: - [facility] 00 [facility] Vitamin B12 Vitamin B12 2-0 No 1000ug Common (Cyanocobal (Cyanocobal 5-10 S pirit nayak) nayak) 00:00: - [facility] 00 [facility] Vitamin B12 Vitamin B12 2-0 No 1000ug Common (Cyanocobal (Cyanocobal 5-10 S pirit nayak) nayak) 00:00: - [facility] 00 [facility] Vitamin B12 Vitamin B12 2022-0 No 1000ug Common (Cyanocobal (Cyanocobal 5-10 S pirit nayak) nayak) 00:00: - [facility] 00 [facility] Vitamin B12 Vitamin B12 2022-0 No 1000ug Common (Cyanocobal (Cyanocobal 5-10 S pirit nayak) nayak) 00:00: - [facility] 00 [facility] Vitamin B12 Vitamin B12 2-0 No 1000ug Common (Cyanocobal (Cyanocobal 5-10 S pirit nayak) nayak) 00:00: - [facility] 00 [facility] Vitamin B12 Vitamin B12 2-0 No 1000ug Common (Cyanocobal (Cyanocobal 5-10 S pirit nayak) nayak) 00:00: - [facility] 00 [facility] Vitamin B12 Vitamin B12 2-0 No 1000ug Common (Cyanocobal (Cyanocobal 5-10 S pirit nayak) nayak) 00:00: - [facility] 00 [facility] Vitamin B12 Vitamin B12 2-0 No 1000ug Common (Cyanocobal (Cyanocobal 5-10 S pirit nayak) nayak) 00:00: - [facility] 00 [facility] Vitamin B12 Vitamin B12 2-0 No 1000ug Common (Cyanocobal (Cyanocobal 5-10 S pirit nayak) anyak) 00:00: - [facility] 00 [facility] Alfuzosin Alfuzosin 2021-0 2021- No 1{table QD Alfuzosin HCl ER 10 HCl ER 10 10-17 10-24 t_immed HCl ER 10 MG MG 00:00: 00:00 iately_ MG 00 :00 after_t he_same _meal} Alfuzosin Alfuzosin 2021-0 2- No 1{table QD Alfuzosin HCl ER 10 HCl ER 10 - 10-24 t_immed HCl ER 10 MG MG 00:00: 00:00 iately_ MG 00 :00 after_t he_same _meal} Alfuzosin Alfuzosin 2021-0 2- No 1{table QD Alfuzosin HCl ER 10 HCl ER 10 4-27 10-24 t_immed HCl ER 10 MG MG 00:00: 00:00 iately_ MG 00 :00 after_t he_same _meal} Alfuzosin Alfuzosin 2021-0 2- No 1{table QD Alfuzosin HCl ER 10 HCl ER 10 4-27 10-24 t_immed HCl ER 10 MG MG 00:00: 00:00 iately_ MG 00 :00 after_t he_same _meal} Alfuzosin Alfuzosin 2021-0 2- No 1{table QD Alfuzosin HCl ER 10 HCl ER 10 10-17-24 t_immed HCl ER 10 MG MG 00:00: 00:00 iately_ MG 00 :00 after_t he_same _meal} Alfuzosin Alfuzosin 2021-2- No 1{table QD Alfuzosin HCl ER 10 HCl ER 10 10-17-24 t_immed HCl ER 10 MG MG 00:00: 00:00 iately_ MG 00 :00 after_t he_same _meal} Alfuzosin Alfuzosin 2021-2- No 1{table QD Alfuzosin HCl ER 10 HCl ER 10 10-17 t_immed HCl ER 10 MG MG 00:00: 00:00 iately_ MG 00 :00 after_t he_same _meal} Alfuzosin Alfuzosin 2021-2- No 1{table QD Alfuzosin HCl ER 10 HCl ER 10 10-17 t_immed HCl ER 10 MG MG 00:00: 00:00 iately_ MG 00 :00 after_t he_same _meal} Alfuzosin Alfuzosin 2021-2021- No 1{table QD Alfuzosin HCl ER 10 HCl ER 10 10-17 t_immed HCl ER 10 MG MG 00:00: 00:00 iately_ MG 00 :00 after_t he_same _meal} Alfuzosin Alfuzosin 2021-2- No 1{table QD Alfuzosin HCl ER 10 HCl ER 10 10-1724 t_immed HCl ER 10 MG MG 00:00: 00:00 iately_ MG 00 :00 after_t he_same _meal} Alfuzosin Alfuzosin 2021-2- No 1{table QD Alfuzosin HCl ER 10 HCl ER 10 10-17-24 t_immed HCl ER 10 MG MG 00:00: 00:00 iately_ MG 00 :00 after_t he_same _meal} Alfuzosin Alfuzosin 2021-2- No 1{table QD Alfuzosin HCl ER 10 HCl ER 10 10-1724 t_immed HCl ER 10 MG MG 00:00: 00:00 iately_ MG 00 :00 after_t he_same _meal} Alfuzosin Alfuzosin 2021-2021- No 1{table QD Alfuzosin HCl ER 10 HCl ER 10 10-1724 t_immed HCl ER 10 MG MG 00:00: 00:00 iately_ MG 00 :00 after_t he_same _meal} Alfuzosin Alfuzosin 2021-2021- No 1{table QD Alfuzosin HCl ER 10 HCl ER 10 10-1724 t_immed HCl ER 10 MG MG 00:00: 00:00 iately_ MG 00 :00 after_t he_same _meal} Alfuzosin Alfuzosin 2021- No 1{table QD Alfuzosin HCl ER 10 HCl ER 10 10-17 t_immed HCl ER 10 MG MG 00:00: 00:00 iately_ MG 00 :00 after_t he_same _meal} Alfuzosin Alfuzosin 2021- No 1{table QD Alfuzosin HCl ER 10 HCl ER 10 10-17 t_immed HCl ER 10 MG MG 00:00: 00:00 iately_ MG 00 :00 after_t he_same _meal} Alfuzosin Alfuzosin 2021- No 1{table QD Alfuzosin HCl ER 10 HCl ER 10 10-17 t_immed HCl ER 10 MG MG 00:00: 00:00 iately_ MG 00 :00 after_t he_same _meal} simvastatin 2021- No 40mg Take 40 mg [facility] 40 mg 10-06 by mouth ity of tablet 00:00: 00:00 every [place] 00 :00 evening. Medical Branch simvastatin 2021- No 40mg Take 40 mg [facility] 40 mg 10-06 by mouth ity of tablet 00:00: 00:00 every [place] 00 :00 evening. Medical Branch Vitamin B12 Vitamin B12 No 1000ug Common (Cyanocobal (Cyanocobal 3-10 S pirit nayak) nayak) 00:00: - [facility] 00 [facility] Vitamin B12 Vitamin B12 No 1000ug Common (Cyanocobal (Cyanocobal 3-10 S pirit nayak) nayak) 00:00: - [facility] 00 [facility] Vitamin B12 Vitamin B12 2021-0 No 1000ug Common (Cyanocobal (Cyanocobal 3-10 S pirit nayak) nayak) 00:00: - [facility] 00 [facility] Vitamin B12 Vitamin B12 2-0 No 1000ug Common (Cyanocobal (Cyanocobal 3-10 S pirit nayak) nayak) 00:00: - [facility] 00 [facility] Vitamin B12 Vitamin B12 2021-0 No 1000ug Common (Cyanocobal (Cyanocobal 3-10 S pirit nayak) nayak) 00:00: - [facility] 00 [facility] Vitamin B12 Vitamin B12 2021-0 No 1000ug Common (Cyanocobal (Cyanocobal 3-10 S pirit nayak) nayak) 00:00: - [facility] 00 [facility] Vitamin B12 Vitamin B12 2021-0 No 1000ug Common (Cyanocobal (Cyanocobal 3-10 S pirit nayak) nayak) 00:00: - [facility] 00 [facility] Vitamin B12 Vitamin B12 2021-0 No 1000ug Common (Cyanocobal (Cyanocobal 3-10 S pirit nayak) nayak) 00:00: - [facility] 00 [facility] Vitamin B12 Vitamin B12 2021-0 No 1000ug Common (Cyanocobal (Cyanocobal 3-10 S pirit nayak) nayak) 00:00: - [facility] 00 [facility] Vitamin B12 Vitamin B12 2021-0 No 1000ug Common (Cyanocobal (Cyanocobal 3-10 S pirit nayak) nayak) 00:00: - [facility] 00 [facility] Vitamin B12 Vitamin B12 2021-0 No 1000ug Common (Cyanocobal (Cyanocobal 3-10 S pirit nayak) nayak) 00:00: - [facility] 00 [facility] Vitamin B12 Vitamin B12 2-0 No 1000ug Common (Cyanocobal (Cyanocobal 3-10 S pirit nayak) nayak) 00:00: - [facility] 00 [facility] Vitamin B12 Vitamin B12 2-0 No 1000ug Common (Cyanocobal (Cyanocobal 3-10 S pirit nayak) nayak) 00:00: - [facility] 00 [facility] Vitamin B12 Vitamin B12 2021-0 No 1000ug Common (Cyanocobal (Cyanocobal 3-10 S pirit nayak) nayak) 00:00: - [facility] 00 [facility] Vitamin B12 Vitamin B12 2021-0 No 1000ug Common (Cyanocobal (Cyanocobal 3-10 S pirit nayak) nayak) 00:00: - [facility] 00 [facility] Vitamin B12 Vitamin B12 2021-0 No 1000ug Common (Cyanocobal (Cyanocobal 3-10 S pirit nayak) nayak) 00:00: - [facility] 00 [facility] Vitamin B12 Vitamin B12 2021-0 No 1000ug Common (Cyanocobal (Cyanocobal 3-10 S pirit nayak) nayak) 00:00: - [facility] 00 [facility] Vitamin B12 Vitamin B12 2021-0 No 1000ug Common (Cyanocobal (Cyanocobal 3-10 S pirit nayak) nayak) 00:00: - [facility] 00 [facility] Vitamin B12 Vitamin B12 2021-0 No 1000ug Common (Cyanocobal (Cyanocobal 3-10 S pirit nayak) nayak) 00:00: - [facility] 00 [facility] Vitamin B12 Vitamin B12 2021-0 No 1000ug Common (Cyanocobal (Cyanocobal 3-10 S pirit nayak) nayak) 00:00: - [facility] 00 [facility] Vitamin B12 Vitamin B12 2021-0 No 1000ug Common (Cyanocobal (Cyanocobal 3-10 S pirit nayak) nayak) 00:00: - [facility] 00 [facility] Vitamin B12 Vitamin B12 2021-0 No 1000ug Common (Cyanocobal (Cyanocobal 3-10 S pirit nayak) nayak) 00:00: - [facility] 00 [facility] Vitamin B12 Vitamin B12 2021-0 No 1000ug Common (Cyanocobal (Cyanocobal 3-10 S pirit nayak) nayak) 00:00: - [facility] 00 [facility] Vitamin B12 Vitamin B12 2021-0 No 1000ug Common (Cyanocobal (Cyanocobal 3-10 S pirit nayak) nayak) 00:00: - [facility] 00 [facility] Vitamin B12 Vitamin B12 2-0 No 1000ug Common (Cyanocobal (Cyanocobal 3-10 S pirit nayak) nayak) 00:00: - [facility] 00 [facility] Azithromyci Azithromyci 2022-0 2022- No QD Azithromyc n 250 MG n 250 MG 309-01 in 250 MG 00:00: 00:00 00 :00 Azithromyci Azithromyci 2021-0 2- No QD Azithromyc n 250 MG n 250 MG 08-27 in 250 MG 00:00: 00:00 00 :00 traZODone traZODone 2021-0 No QD traZODone HCl 100 MG HCl 100 MG 2-28 HCl 100 MG 00:00: 00 traZODone traZODone 2021-0 No QD traZODone HCl 100 MG HCl 100 MG 2-28 HCl 100 MG 00:00: 00 traZODone traZODone 2021-0 No QD traZODone HCl 100 MG HCl 100 MG 2-28 HCl 100 MG 00:00: 00 traZODone traZODone 2021-0 No QD traZODone HCl 100 MG HCl 100 MG 2-28 HCl 100 MG 00:00: 00 Bactrim DS Bactrim DS 2021-0 2022- No 1{table BID Bactrim DS 800-160 MG 800-160 MG 2-17 -24 t} 800-160 MG 00:00: 00:00 00 :00 Vitamin B12 Vitamin B12 2021-0 No 1000ug Common (Cyanocobal (Cyanocobal 2-02 S pirit nayak) nayak) 00:00: - [facility] 00 [facility] Vitamin B12 Vitamin B12 2021-0 No 1000ug Common (Cyanocobal (Cyanocobal 2-02 S pirit nayak) nayak) 00:00: - [facility] 00 [facility] Vitamin B12 Vitamin B12 2021-0 No 1000ug Common (Cyanocobal (Cyanocobal 2-02 S pirit nayak) nayak) 00:00: - [facility] 00 [facility] Vitamin B12 Vitamin B12 2021-0 No 1000ug Common (Cyanocobal (Cyanocobal 2-02 S pirit nayak) nayak) 00:00: - [facility] 00 [facility] Vitamin B12 Vitamin B12 2021-0 No 1000ug Common (Cyanocobal (Cyanocobal 2-02 S pirit nayak) nayak) 00:00: - [facility] 00 [facility] Vitamin B12 Vitamin B12 2021-0 No 1000ug Common (Cyanocobal (Cyanocobal 2-02 S pirit nayak) nayak) 00:00: - [facility] 00 [facility] Vitamin B12 Vitamin B12 2-0 No 1000ug Common (Cyanocobal (Cyanocobal 2-02 S pirit nayak) nayak) 00:00: - [facility] 00 [facility] Vitamin B12 Vitamin B12 2022-0 No 1000ug Common (Cyanocobal (Cyanocobal 2-02 S pirit nayak) nayak) 00:00: - [facility] 00 [facility] Vitamin B12 Vitamin B12 2-0 No 1000ug Common (Cyanocobal (Cyanocobal 2-02 S pirit nayak) nayak) 00:00: - [facility] 00 [facility] Vitamin B12 Vitamin B12 2-0 No 1000ug Common (Cyanocobal (Cyanocobal 2-02 S pirit nayak) nayak) 00:00: - [facility] 00 [facility] Vitamin B12 Vitamin B12 2-0 No 1000ug Common (Cyanocobal (Cyanocobal 2-02 S pirit nayak) nayak) 00:00: - [facility] 00 [facility] Vitamin B12 Vitamin B12 2-0 No 1000ug Common (Cyanocobal (Cyanocobal 2-02 S pirit nayak) nayak) 00:00: - [facility] 00 [facility] Vitamin B12 Vitamin B12 2-0 No 1000ug Common (Cyanocobal (Cyanocobal 2-02 S pirit nayak) nayak) 00:00: - [facility] 00 [facility] Vitamin B12 Vitamin B12 2-0 No 1000ug Common (Cyanocobal (Cyanocobal 2-02 S pirit nayak) nayak) 00:00: - [facility] 00 [facility] Vitamin B12 Vitamin B12 2022-0 No 1000ug Common (Cyanocobal (Cyanocobal 2-02 S pirit nayak) nayak) 00:00: - [facility] 00 [facility] Vitamin B12 Vitamin B12 2022-0 No 1000ug Common (Cyanocobal (Cyanocobal 2-02 S pirit nayak) nayak) 00:00: - [facility] 00 [facility] Vitamin B12 Vitamin B12 2022-0 No 1000ug Common (Cyanocobal (Cyanocobal 2-02 S pirit nayak) nayak) 00:00: - [facility] 00 [facility] Vitamin B12 Vitamin B12 2022-0 No 1000ug Common (Cyanocobal (Cyanocobal 2-02 S pirit nayak) nayak) 00:00: - [facility] 00 [facility] Vitamin B12 Vitamin B12 2021-0 No 1000ug Common (Cyanocobal (Cyanocobal 2-02 S pirit nayak) nayak) 00:00: - [facility] 00 [facility] Vitamin B12 Vitamin B12 2021-0 No 1000ug Common (Cyanocobal (Cyanocobal 2-02 S pirit nayak) nayak) 00:00: - [facility] 00 [facility] Vitamin B12 Vitamin B12 2021-0 No 1000ug Common (Cyanocobal (Cyanocobal 2-02 S pirit nayak) nayak) 00:00: - [facility] 00 [facility] Vitamin B12 Vitamin B12 2021-0 No 1000ug Common (Cyanocobal (Cyanocobal 2-02 S pirit nayak) nayak) 00:00: - [facility] 00 [facility] Vitamin B12 Vitamin B12 2021-0 No 1000ug Common (Cyanocobal (Cyanocobal 2-02 S pirit nayak) nayak) 00:00: - [facility] 00 [facility] Vitamin B12 Vitamin B12 2021-0 No 1000ug Common (Cyanocobal (Cyanocobal 2-02 S pirit nayak) nayak) 00:00: - [facility] 00 [facility] Vitamin B12 Vitamin B12 2021-0 No 1000ug Common (Cyanocobal (Cyanocobal 2-02 S pirit nayak) nayak) 00:00: - [facility] 00 [facility] Vitamin B12 Vitamin B12 2021-0 No 1000ug Common (Cyanocobal (Cyanocobal 2-02 S pirit nayak) nayak) 00:00: - [facility] 00 [facility] Vitamin B12 Vitamin B12 2021-0 No 1000ug Common (Cyanocobal (Cyanocobal 2-02 S pirit nayak) nayak) 00:00: - [facility] 00 [facility] budesonide- 0 Yes 2{puff} Inhale 2 [facility] formoterol 2-01 Puffs 2 ity of (SYMBICORT) 14:26: (two) [place] 160-4.5 39 times Medical mcg/actuati daily. Branch on inhaler clopidogreL 0 Yes 75mg Take 75 mg [facility] (PLAVIX) 75 2-01 by mouth ity of mg tablet 14:26: daily. [place] [address] Medical Branch budesonide- 2021-0 Yes 2{puff} Inhale 2 [facility] formoterol 2-01 Puffs 2 ity of (SYMBICORT) 14:26: (two) [place] 160-4.5 39 times Medical mcg/actuati daily. Branch on inhaler clopidogreL 2-0 Yes 75mg Take 75 mg [facility] (PLAVIX) 75 2-01 by mouth ity of mg tablet 14:26: daily. [place] [address] Medical Branch budesonide- 2-0 Yes 2{puff} Inhale 2 [facility] formoterol 2-01 Puffs 2 ity of (SYMBICORT) 14:26: (two) [place] 160-4.5 39 times Medical mcg/actuati daily. Branch on inhaler clopidogreL 2-0 Yes 75mg Take 75 mg [facility] (PLAVIX) 75 2-01 by mouth ity of mg tablet 14:26: daily. [place] [address] Medical Branch budesonide- 2021-0 Yes 2{puff} Inhale 2 [facility] formoterol 2-01 Puffs 2 ity of (SYMBICORT) 14:26: (two) [place] 160-4.5 39 times Medical mcg/actuati daily. Branch on inhaler clopidogreL 2021-0 Yes 75mg Take 75 mg [facility] (PLAVIX) 75 2-01 by mouth ity of mg tablet 14:26: daily. [place] [address] Medical Branch nystatin 2021-0 Yes [id number] Apply to U nivers 100,000 2-01 area(s) 2 ity of unit/gram 00:00: (two) [place] cream 00 times Medical daily. Branch nystatin 2-0 Yes [id number] Apply to U nivers 100,000 2-01 area(s) 2 ity of unit/gram 00:00: (two) [place] cream 00 times Medical daily. Branch nystatin 2022-0 Yes [id number] Apply to U nivers 100,000 2-01 area(s) 2 ity of unit/gram 00:00: (two) [place] cream 00 times Medical daily. Branch nystatin 2022-0 Yes [id number] Apply to U nivers 100,000 2-01 area(s) 2 ity of unit/gram 00:00: (two) [place] cream 00 times Medical daily. Branch nystatin 2022-0 Yes [id number] Apply to U nivers 100,000 2-01 area(s) 2 ity of unit/gram 00:00: (two) [place] cream 00 times Medical daily. Branch nystatin 2022-0 Yes [id number] Apply to U nivers 100,000 2-01 area(s) 2 ity of unit/gram 00:00: (two) [place] cream 00 times Medical daily. Branch nystatin 2022-0 Yes [id number] Apply to U nivers 100,000 2-01 area(s) 2 ity of unit/gram 00:00: (two) [place] cream 00 times Medical daily. Branch nystatin 2022-0 Yes [id number] Apply to U nivers 100,000 2-01 area(s) 2 ity of unit/gram 00:00: (two) [place] cream 00 times Medical daily. Branch nystatin 2022-0 Yes [id number] Apply to [facility] nivers 100,000 2-01 area(s) 2 ity of unit/gram 00:00: (two) [place] cream 00 times Medical daily. Branch nystatin 2022-0 Yes [id number] Apply to U nivers 100,000 2-01 area(s) 2 ity of unit/gram 00:00: (two) [place] cream 00 times Medical daily. Branch nystatin 2022-0 Yes [id number] Apply to U nivers 100,000 2-01 area(s) 2 ity of unit/gram 00:00: (two) [place] cream 00 times Medical daily. Branch nystatin 2022-0 Yes [id number] Apply to U nivers 100,000 2-01 area(s) 2 ity of unit/gram 00:00: (two) [place] cream 00 times Medical daily. Branch nystatin 2022-0 Yes [id number] Apply to [facility] n[facility] 100,000 2-01 area(s) 2 ity of unit/gram 00:00: (two) [place] cream 00 times Medical daily. Branch nystatin 2022-0 Yes [id number] Apply to [facility] n[facility] 100,000 2-01 area(s) 2 ity of unit/gram 00:00: (two) [place] cream 00 times Medical daily. Branch nystatin 2022-0 Yes [id number] Apply to [facility] 100,000 2-01 area(s) 2 ity of unit/gram 00:00: (two) [place] cream 00 times Medical daily. Branch nystatin 2-0 Yes [id number] Apply to [facility] 100,000 2-01 area(s) 2 ity of unit/gram 00:00: (two) [place] cream 00 times Medical daily. Branch nystatin 2-0 Yes [id number] Apply to [facility] 100,000 2-01 area(s) 2 ity of unit/gram 00:00: (two) [place] cream 00 times Medical daily. Branch nystatin 2-0 Yes [id number] Apply to [facility] 100,000 2-01 area(s) 2 ity of unit/gram 00:00: (two) [place] cream 00 times Medical daily. Branch nystatin 2-0 Yes [id number] Apply to [facility] 100,000 2-01 area(s) 2 ity of unit/gram 00:00: (two) [place] cream 00 times Medical daily. Branch nystatin 2-0 Yes [id number] Apply to [facility] 100,000 2-01 area(s) 2 ity of unit/gram 00:00: (two) [place] cream 00 times Medical daily. Branch Clotrimazol Clotrimazol 2021- No 1{appli BID Clotrimazo e 1 % e 1 % 1-20 02-17 cation} le 1 % 00:00: 00:00 00 :00 Clotrimazol Clotrimazol 2021- No 1{appli BID Clotrimazo e 1 % e 1 % 1-20 02-17 cation} le 1 % 00:00: 00:00 00 :00 esomeprazol Yes 40mg Take 40 mg [facility] e (NEXIUM) 1-10 by mouth ity o f 40 mg 08:18: daily. [place] capsule 50 Medical Branch nitroglycer Yes .4mg Place 0.4 U nivers in 1-10 mg under ity of (NITROSTAT) 08:18: the tongue [place] 0.4 mg 50 every 5 Medical sublingual (five) Branch tablet minutes as needed for Chest pain. mometasone Yes 1{spray Use 1 Uni vers (NASONEX) 1-10 } [place] in ity of 50 08:18: each [place] mcg/actuati 50 nostril. Medi jesus on nasal Branch spray ergocalcife 2021-0 Yes Take by Uni vers rol, 1-10 mouth. ity of vitamin D2, 08:18: [place] (VITAMIN D 50 Medical ORAL) Branch esomeprazol 2021-0 Yes 40mg Take 40 mg [facility] e (NEXIUM) 1-10 by mouth ity o f 40 mg 08:18: daily. [place] capsule 50 Medical Branch nitroglycer 2021-[address] 0.4 U nivers in 1-10 mg under ity of (NITROSTAT) 08:18: the tongue [place] 0.4 mg 50 every 5 Medical sublingual (five) Branch tablet minutes as needed for Chest pain. mometasone 2021-0 Yes 1{spray Use 1 Uni vers (NASONEX) 1-10 } [place] in ity of 50 08:18: each [place] mcg/actuati 50 nostril. Medi jesus on nasal Branch spray ergocalcife 2021-0 Yes Take by Uni vers rol, 1-10 mouth. ity of vitamin D2, 08:18: [place] (VITAMIN D 50 Medical ORAL) Branch esomeprazol 2021-0 Yes 40mg Take 40 mg [facility] e (NEXIUM) 1-10 by mouth ity o f 40 mg 08:18: daily. [place] capsule 50 Medical Branch nitroglycer 2021-[address] 0.4 U nivers in 1-10 mg under ity of (NITROSTAT) 08:18: the tongue [place] 0.4 mg 50 every 5 Medical sublingual (five) Branch tablet minutes as needed for Chest pain. mometasone 2021-0 Yes 1{spray Use 1 Uni vers (NASONEX) 1-10 } [place] in ity of 50 08:18: each [place] mcg/actuati 50 nostril. Medi jesus on nasal Branch spray ergocalcife 2021-0 Yes Take by Uni vers rol, 1-10 mouth. ity of vitamin D2, 08:18: [place] (VITAMIN D 50 Medical ORAL) Branch esomeprazol 2021-0 Yes 40mg Take 40 mg [facility] e (NEXIUM) 1-10 by mouth ity o f 40 mg 08:18: daily. [place] capsule 50 Medical Branch nitroglycer 2022-[address] 0.4 U nivers in 1-10 mg under ity of (NITROSTAT) 08:18: the tongue [place] 0.4 mg 50 every 5 Medical sublingual (five) Branch tablet minutes as needed for Chest pain. mometasone Yes 1{spray Use 1 Uni vers (NASONEX) 1-10 } [place] in ity of 50 08:18: each [place] mcg/actuati 50 nostril. Medi jesus on nasal Branch spray ergocalcife Yes Take by Uni vers rol, 1-10 mouth. ity of vitamin D2, 08:18: [place] (VITAMIN D 50 Medical ORAL) Branch PARoxetine Yes [id number] 10mg Take 1 [facility] (PAXIL) 10 1-06 tablet by ity of mg tablet 00:00: mouth [place] 00 daily. Medical Branch oxybutynin Yes [id number] 5mg Take 1 [facility] XL 5 mg 24 1-06 tablet by ity of hr tablet 00:00: mouth [place] 00 daily. Medical Branch PARoxetine Yes [id number] 10mg Take 1 [facility] (PAXIL) 10 1-06 tablet by ity of mg tablet 00:00: mouth [place] 00 daily. Medical Branch oxybutynin Yes [id number] 5mg Take 1 [facility] XL 5 mg 24 1-06 tablet by ity of hr tablet 00:00: mouth [place] 00 daily. Medical Branch PARoxetine Yes [id number] 10mg Take 1 [facility] (PAXIL) 10 1-06 tablet by ity of mg tablet 00:00: mouth [place] 00 daily. Medical Branch oxybutynin Yes [id number] 5mg Take 1 [facility] XL 5 mg 24 1-06 tablet by ity of hr tablet 00:00: mouth [place] 00 daily. Medical Branch PARoxetine Yes [id number] 10mg Take 1 [facility] (PAXIL) 10 1-06 tablet by ity of mg tablet 00:00: mouth [place] 00 daily. Medical Branch oxybutynin Yes [id number] 5mg Take 1 [facility] XL 5 mg 24 1-06 tablet by ity of hr tablet 00:00: mouth [place] 00 daily. Medical Branch PARoxetine Yes [id number] 10mg Take 1 [facility] (PAXIL) 10 1-06 tablet by ity of mg tablet 00:00: mouth [place] 00 daily. Medical Branch oxybutynin 2021-0 Yes [id number] 5mg Take 1 [facility] XL 5 mg 24 1-06 tablet by ity of hr tablet 00:00: mouth [place] 00 daily. Medical Branch PARoxetine 2021-0 Yes [id number] 10mg Take 1 [facility] (PAXIL) 10 1-06 tablet by ity of mg tablet 00:00: mouth [place] 00 daily. Medical Branch oxybutynin 2021-0 Yes [id number] 5mg Take 1 [facility] XL 5 mg 24 1-06 tablet by ity of hr tablet 00:00: mouth [place] 00 daily. [facility] Branch PARoxetine 2021-0 Yes [id number] 10mg Take 1 Univers (PAXIL) 10 1-06 tablet by ity of mg tablet 00:00: mouth [place] 00 daily. [facility] Branch oxybutynin 2021-0 Yes [id number] 5mg Take 1 [facility] XL 5 mg 24 1-06 tablet by ity of hr tablet 00:00: mouth [place] 00 daily. [facility] Branch PARoxetine 2021- Yes [id number] 10mg Take 1 Univers (PAXIL) 10 1-06 tablet by ity of mg tablet 00:00: mouth [place] 00 daily. [facility] Branch oxybutynin 2021-0 Yes [id number] 5mg Take 1 [facility] XL 5 mg 24 1-06 tablet by ity of hr tablet 00:00: mouth [place] 00 daily. [facility] Branch PARoxetine 2021-0 Yes [id number] 10mg Take 1 Univers (PAXIL) 10 1-06 tablet by ity of mg tablet 00:00: mouth [place] 00 daily. Medical Branch oxybutynin 2021-0 Yes [id number] 5mg Take 1 [facility] XL 5 mg 24 1-06 tablet by ity of hr tablet 00:00: mouth [place] 00 daily. [facility] Branch PARoxetine 2021-0 Yes [id number] 10mg Take 1 Univers (PAXIL) 10 1-06 tablet by ity of mg tablet 00:00: mouth [place] 00 daily. [facility] Branch oxybutynin 2021-0 Yes [id number] 5mg Take 1 [facility] XL 5 mg 24 1-06 tablet by ity of hr tablet 00:00: mouth [place] 00 daily. [facility] Branch PARoxetine 2021-0 Yes [id number] 10mg Take 1 Univers (PAXIL) 10 1-06 tablet by ity of mg tablet 00:00: mouth [place] 00 daily. Medical Branch oxybutynin 2021-0 Yes [id number] 5mg Take 1 [facility] XL 5 mg 24 1-06 tablet by ity of hr tablet 00:00: mouth [place] 00 daily. Medical Branch PARoxetine 2021-0 Yes [id number] 10mg Take 1 Univers (PAXIL) 10 1-06 tablet by ity of mg tablet 00:00: mouth [place] 00 daily. Medical Branch oxybutynin 2021-0 Yes [id number] 5mg Take 1 [facility] XL 5 mg 24 1-06 tablet by ity of hr tablet 00:00: mouth [place] 00 daily. Medical Branch PARoxetine 2021-0 Yes [id number] 10mg Take 1 Univers (PAXIL) 10 1-06 tablet by ity of mg tablet 00:00: mouth [place] 00 daily. Medical Branch oxybutynin 2021-0 Yes [id number] 5mg Take 1 [facility] XL 5 mg 24 1-06 tablet by ity of hr tablet 00:00: mouth [place] 00 daily. Medical Branch PARoxetine 2021-0 Yes [id number] 10mg Take 1 Univers (PAXIL) 10 1-06 tablet by ity of mg tablet 00:00: mouth [place] 00 daily. Medical Branch oxybutynin 2021-0 Yes [id number] 5mg Take 1 [facility] XL 5 mg 24 1-06 tablet by ity of hr tablet 00:00: mouth [place] 00 daily. Medical Branch oxybutynin 2021-0 Yes [id number] 5mg Take 1 [facility] XL 5 mg 24 1-06 tablet by ity of hr tablet 00:00: mouth [place] 00 daily. Medical Branch oxybutynin 2021-0 Yes [id number] 5mg Take 1 [facility] XL 5 mg 24 1-06 tablet by ity of hr tablet 00:00: mouth [place] 00 daily. Medical Branch oxybutynin 2021-0 Yes [id number] 5mg Take 1 [facility] XL 5 mg 24 1-06 tablet by ity of hr tablet 00:00: mouth [place] 00 daily. Medical Branch oxybutynin 2021-0 Yes [id number] 5mg Take 1 [facility] XL 5 mg 24 1-06 tablet by ity of hr tablet 00:00: mouth [place] 00 daily. Medical Branch oxybutynin 2021-0 Yes [id number] 5mg Take 1 [facility] XL 5 mg 24 1-06 tablet by ity of hr tablet 00:00: mouth [place] 00 daily. Medical Branch oxybutynin 2021-0 Yes [id number] 5mg Take 1 [facility] XL 5 mg 24 1-06 tablet by ity of hr tablet 00:00: mouth [place] 00 daily. Medical Branch PARoxetine 2021-0 2- No [id number] 10mg Take 1 Univers (PAXIL) 10 06-28 08-09 tablet by ity of mg tablet 00:00: 00:00 mouth [place] 00 :00 daily. Medical Branch PARoxetine 2021-0 2021- No [id number] 10mg Take 1 Univers (PAXIL) 10 06-28 08-09 tablet by ity of mg tablet 00:00: 00:00 mouth [place] 00 :00 daily. Medical Branch Vitamin B12 Vitamin B12 0 No 1000ug Common (Cyanocobal (Cyanocobal 1-05 S pirit nayak) nayak) 00:00: - [facility] 00 [facility] Vitamin B12 Vitamin B12 2021-0 No 1000ug Common (Cyanocobal (Cyanocobal 1-05 S pirit nayak) nayak) 00:00: - [facility] 00 [facility] Vitamin B12 Vitamin B12 2021-0 No 1000ug Common (Cyanocobal (Cyanocobal 1-05 S pirit nayak) nayak) 00:00: - [facility] 00 [facility] Vitamin B12 Vitamin B12 2021-0 No 1000ug Common (Cyanocobal (Cyanocobal 1-05 S pirit nayak) nayak) 00:00: - [facility] 00 [facility] Vitamin B12 Vitamin B12 2021-0 No 1000ug Common (Cyanocobal (Cyanocobal 1-05 S pirit nayak) nayak) 00:00: - [facility] 00 [facility] Vitamin B12 Vitamin B12 2021-0 No 1000ug Common (Cyanocobal (Cyanocobal 1-05 S pirit nayak) nayak) 00:00: - [facility] 00 [facility] Vitamin B12 Vitamin B12 2021-0 No 1000ug Common (Cyanocobal (Cyanocobal 1-05 S pirit nayak) nayak) 00:00: - [facility] 00 [facility] Vitamin B12 Vitamin B12 2021-0 No 1000ug Common (Cyanocobal (Cyanocobal 1-05 S pirit nayak) nayak) 00:00: - [facility] 00 [facility] Vitamin B12 Vitamin B12 2021-0 No 1000ug Common (Cyanocobal (Cyanocobal 1-05 S pirit nayak) nayak) 00:00: - [facility] 00 [facility] Vitamin B12 Vitamin B12 2-0 No 1000ug Common (Cyanocobal (Cyanocobal 1-05 S pirit nayak) nayak) 00:00: - [facility] 00 [facility] Vitamin B12 Vitamin B12 2021-0 No 1000ug Common (Cyanocobal (Cyanocobal 1-05 S pirit nayak) nayak) 00:00: - [facility] 00 [facility] Vitamin B12 Vitamin B12 2021-0 No 1000ug Common (Cyanocobal (Cyanocobal 1-05 S pirit nayak) nayak) 00:00: - [facility] 00 [facility] Vitamin B12 Vitamin B12 2021-0 No 1000ug Common (Cyanocobal (Cyanocobal 1-05 S pirit nayak) nayak) 00:00: - [facility] 00 [facility] Vitamin B12 Vitamin B12 2021-0 No 1000ug Common (Cyanocobal (Cyanocobal 1-05 S pirit nayak) nayak) 00:00: - [facility] 00 [facility] Vitamin B12 Vitamin B12 2021-0 No 1000ug Common (Cyanocobal (Cyanocobal 1-05 S pirit nayak) nayak) 00:00: - [facility] 00 [facility] Vitamin B12 Vitamin B12 2-0 No 1000ug Common (Cyanocobal (Cyanocobal 1-05 S pirit nayak) nayak) 00:00: - [facility] 00 [facility] Vitamin B12 Vitamin B12 2-0 No 1000ug Common (Cyanocobal (Cyanocobal 1-05 S pirit nayak) nayak) 00:00: - [facility] 00 [facility] Vitamin B12 Vitamin B12 2-0 No 1000ug Common (Cyanocobal (Cyanocobal 1-05 S pirit nayak) nayak) 00:00: - [facility] 00 [facility] Vitamin B12 Vitamin B12 2022-0 No 1000ug Common (Cyanocobal (Cyanocobal 1-05 S pirit nayak) nayak) 00:00: - [facility] 00 [facility] Vitamin B12 Vitamin B12 2-0 No 1000ug Common (Cyanocobal (Cyanocobal 1-05 S pirit nayak) nayak) 00:00: - [facility] 00 [facility] Vitamin B12 Vitamin B12 2021-0 No 1000ug Common (Cyanocobal (Cyanocobal 1-05 S pirit nayak) nayak) 00:00: - [facility] 00 [facility] Vitamin B12 Vitamin B12 2021-0 No 1000ug Common (Cyanocobal (Cyanocobal 1-05 S pirit nayak) nayak) 00:00: - [facility] 00 [facility] Vitamin B12 Vitamin B12 2021-0 No 1000ug Common (Cyanocobal (Cyanocobal 1-05 S pirit nayak) nayak) 00:00: - [facility] 00 [facility] Vitamin B12 Vitamin B12 2021-0 No 1000ug Common (Cyanocobal (Cyanocobal 1-05 S pirit nayak) nayak) 00:00: - [facility] 00 [facility] Vitamin B12 Vitamin B12 2021-0 No 1000ug Common (Cyanocobal (Cyanocobal 1-05 S pirit nayak) nayak) 00:00: - [facility] 00 [facility] Vitamin B12 Vitamin B12 2021-0 No 1000ug Common (Cyanocobal (Cyanocobal 1-05 S pirit nayak) nayak) 00:00: - [facility] 00 [facility] Vitamin B12 Vitamin B12 2021-0 No 1000ug Common (Cyanocobal (Cyanocobal 1-05 S pirit nayak) nayak) 00:00: - [facility] 00 [facility] Vitamin B12 Vitamin B12 2020-1 No 1000ug Common (Cyanocobal (Cyanocobal 2-09 S pirit nayak) nayak) 00:00: - [facility] 00 [facility] Vitamin B12 Vitamin B12 2020-1 No 1000ug Common (Cyanocobal (Cyanocobal 2-09 S pirit nayak) nayak) 00:00: - [facility] 00 [facility] Vitamin B12 Vitamin B12 2020-1 No 1000ug Common (Cyanocobal (Cyanocobal 2-09 S pirit nayak) nayak) 00:00: - [facility] 00 [facility] Vitamin B12 Vitamin B12 2020-1 No 1000ug Common (Cyanocobal (Cyanocobal 2-09 S pirit nayak) nayak) 00:00: - [facility] 00 [facility] Vitamin B12 Vitamin B12 2020-1 No 1000ug Common (Cyanocobal (Cyanocobal 2-09 S pirit nayak) nayak) 00:00: - [facility] 00 [facility] Vitamin B12 Vitamin B12 2020-06 No 1000ug Common (Cyanocobal (Cyanocobal 2-09 S pirit nayak) nayak) 00:00: - [facility] 00 [facility] Vitamin B12 Vitamin B12 2020-06 No 1000ug Common (Cyanocobal (Cyanocobal 2-09 S pirit nayak) nayak) 00:00: - [facility] 00 [facility] Vitamin B12 Vitamin B12 2020-06 No 1000ug Common (Cyanocobal (Cyanocobal 2-09 S pirit nayak) nayak) 00:00: - [facility] 00 [facility] Vitamin B12 Vitamin B12 2020-06 No 1000ug Common (Cyanocobal (Cyanocobal 2-09 S pirit nayak) nayak) 00:00: - [facility] 00 [facility] Vitamin B12 Vitamin B12 2020-06 No 1000ug Common (Cyanocobal (Cyanocobal 2-09 S pirit nayak) nayak) 00:00: - [facility] 00 [facility] Vitamin B12 Vitamin B12 2020-06 No 1000ug Common (Cyanocobal (Cyanocobal 2-09 S pirit nayak) nayak) 00:00: - [facility] 00 [facility] Vitamin B12 Vitamin B12 2020-06 No 1000ug Common (Cyanocobal (Cyanocobal 2-09 S pirit nayak) nayak) 00:00: - [facility] 00 [facility] Vitamin B12 Vitamin B12 2020-06 No 1000ug Common (Cyanocobal (Cyanocobal 2-09 S pirit nayak) nayak) 00:00: - [facility] 00 [facility] Vitamin B12 Vitamin B12 2020-06 No 1000ug Common (Cyanocobal (Cyanocobal 2-09 S pirit nayak) nayak) 00:00: - [facility] 00 [facility] Vitamin B12 Vitamin B12 2020-06 No 1000ug Common (Cyanocobal (Cyanocobal 2-09 S pirit nayak) nayak) 00:00: - [facility] 00 [facility] Vitamin B12 Vitamin B12 2020-06 No 1000ug Common (Cyanocobal (Cyanocobal 2-09 S pirit nayak) nayak) 00:00: - [facility] 00 [facility] Vitamin B12 Vitamin B12 2020-06 No 1000ug Common (Cyanocobal (Cyanocobal 2-09 S pirit nayak) nayak) 00:00: - [facility] 00 [facility] Vitamin B12 Vitamin B12 2020-06 No 1000ug Common (Cyanocobal (Cyanocobal 2-09 S pirit nayak) nayak) 00:00: - [facility] 00 [facility] Vitamin B12 Vitamin B12 2020-06 No 1000ug Common (Cyanocobal (Cyanocobal 2-09 S pirit nayak) nayak) 00:00: - [facility] 00 [facility] Vitamin B12 Vitamin B12 2020-06 No 1000ug Common (Cyanocobal (Cyanocobal 2-09 S pirit nayak) nayak) 00:00: - [facility] 00 [facility] Vitamin B12 Vitamin B12 2020-06 No 1000ug Common (Cyanocobal (Cyanocobal 2-09 S pirit nayak) nayak) 00:00: - [facility] 00 [facility] Vitamin B12 Vitamin B12 2020-06 No 1000ug Common (Cyanocobal (Cyanocobal 2-09 S pirit nayak) nayak) 00:00: - [facility] 00 [facility] Vitamin B12 Vitamin B12 2020-06 No 1000ug Common (Cyanocobal (Cyanocobal 2-09 S pirit nayak) nayak) 00:00: - [facility] 00 [facility] Vitamin B12 Vitamin B12 2020-06 No 1000ug Common (Cyanocobal (Cyanocobal 2-09 S pirit nayak) nayak) 00:00: - [facility] 00 [facility] Vitamin B12 Vitamin B12 2020-06 No 1000ug Common (Cyanocobal (Cyanocobal 2-09 S pirit nayak) nayak) 00:00: - [facility] 00 [facility] Vitamin B12 Vitamin B12 2020-06 No 1000ug Common (Cyanocobal (Cyanocobal 2-09 S pirit nayak) nayak) 00:00: - [facility] 00 [facility] Vitamin B12 Vitamin B12 2020-06 No 1000ug Common (Cyanocobal (Cyanocobal 2-09 S pirit nayak) nayak) 00:00: - [facility] 00 [facility] Vitamin B12 Vitamin B12 2020-06 No 1000ug Common (Cyanocobal (Cyanocobal 1-01 S pirit nayak) nayak) 00:00: - [facility] 00 [facility] Vitamin B12 Vitamin B12 2020-06 No 1000ug Common (Cyanocobal (Cyanocobal 1-01 S pirit nayak) nayak) 00:00: - [facility] 00 [facility] Vitamin B12 Vitamin B12 2020- No 1000ug Common (Cyanocobal (Cyanocobal 1-01 S pirit nayak) nayak) 00:00: - [facility] 00 [facility] Vitamin B12 Vitamin B12 2020-06 No 1000ug Common (Cyanocobal (Cyanocobal 1-01 S pirit nayak) nayak) 00:00: - [facility] 00 [facility] Vitamin B12 Vitamin B12 2020-06 No 1000ug Common (Cyanocobal (Cyanocobal 1-01 S pirit nayak) nayak) 00:00: - [facility] 00 [facility] Vitamin B12 Vitamin B12 2020-06 No 1000ug Common (Cyanocobal (Cyanocobal 1-01 S pirit nayak) nayak) 00:00: - [facility] 00 [facility] Vitamin B12 Vitamin B12 2020-06 No 1000ug Common (Cyanocobal (Cyanocobal 1-01 S pirit nayak) nayak) 00:00: - [facility] 00 [facility] Vitamin B12 Vitamin B12 2020-06 No 1000ug Common (Cyanocobal (Cyanocobal 1-01 S pirit nayak) nayak) 00:00: - [facility] 00 [facility] Vitamin B12 Vitamin B12 2020-06 No 1000ug Common (Cyanocobal (Cyanocobal 1-01 S pirit nayak) nayak) 00:00: - [facility] 00 [facility] Vitamin B12 Vitamin B12 2020-06 No 1000ug Common (Cyanocobal (Cyanocobal 1-01 S pirit nayak) nayak) 00:00: - [facility] 00 [facility] Vitamin B12 Vitamin B12 2020-06 No 1000ug Common (Cyanocobal (Cyanocobal 1-01 S pirit nayak) nayak) 00:00: - [facility] 00 [facility] Vitamin B12 Vitamin B12 2020- No 1000ug Common (Cyanocobal (Cyanocobal 1-01 S pirit nayak) nayak) 00:00: - [facility] 00 [facility] Vitamin B12 Vitamin B12 2020- No 1000ug Common (Cyanocobal (Cyanocobal 1-01 S pirit nayak) nayak) 00:00: - [facility] 00 [facility] Vitamin B12 Vitamin B12 2020-06 No 1000ug Common (Cyanocobal (Cyanocobal 1-01 S pirit nayak) nayak) 00:00: - [facility] 00 [facility] Vitamin B12 Vitamin B12 2020-06 No 1000ug Common (Cyanocobal (Cyanocobal 1-01 S pirit nayak) nayak) 00:00: - [facility] 00 [facility] Vitamin B12 Vitamin B12 2020-06 No 1000ug Common (Cyanocobal (Cyanocobal 1-01 S pirit nayak) nayak) 00:00: - [facility] 00 [facility] Vitamin B12 Vitamin B12 2020-06 No 1000ug Common (Cyanocobal (Cyanocobal 1-01 S pirit nayak) nayak) 00:00: - [facility] 00 [facility] Vitamin B12 Vitamin B12 2020-06 No 1000ug Common (Cyanocobal (Cyanocobal 1-01 S pirit nayak) nayak) 00:00: - [facility] 00 [facility] Vitamin B12 Vitamin B12 2020-06 No 1000ug Common (Cyanocobal (Cyanocobal 1-01 S pirit nayak) nayak) 00:00: - [facility] 00 [facility] Vitamin B12 Vitamin B12 2020-06 No 1000ug Common (Cyanocobal (Cyanocobal 1-01 S pirit nayak) nayak) 00:00: - [facility] 00 [facility] Vitamin B12 Vitamin B12 2020-06 No 1000ug Common (Cyanocobal (Cyanocobal 1-01 S pirit nayak) nayak) 00:00: - [facility] 00 [facility] Vitamin B12 Vitamin B12 2020-06 No 1000ug Common (Cyanocobal (Cyanocobal 1-01 S pirit nayak) nayak) 00:00: - [facility] 00 [facility] Vitamin B12 Vitamin B12 2020-06 No 1000ug Common (Cyanocobal (Cyanocobal 1-01 S pirit nayak) nayak) 00:00: - [facility] 00 [facility] Vitamin B12 Vitamin B12 2020-06 No 1000ug Common (Cyanocobal (Cyanocobal 1-01 S pirit nayak) nayak) 00:00: - [facility] 00 [facility] Vitamin B12 Vitamin B12 2020-06 No 1000ug Common (Cyanocobal (Cyanocobal 1-01 S pirit nayak) nayak) 00:00: - [facility] 00 [facility] Vitamin B12 Vitamin B12 2020-06 No 1000ug Common (Cyanocobal (Cyanocobal 1-01 S pirit nayak) nayak) 00:00: - [facility] 00 [facility] Vitamin B12 Vitamin B12 2020-06 No 1000ug Common (Cyanocobal (Cyanocobal 1-01 S pirit nayak) nayak) 00:00: - [facility] 00 [facility] Vitamin B12 Vitamin B12 2020-06 No 1000ug Common (Cyanocobal (Cyanocobal 0-01 S pirit nayak) nayak) 00:00: - [facility] 00 [facility] Vitamin B12 Vitamin B12 2020-06 No 1000ug Common (Cyanocobal (Cyanocobal 0-01 S pirit nayak) nayak) 00:00: - [facility] 00 [facility] Vitamin B12 Vitamin B12 2020-06 No 1000ug Common (Cyanocobal (Cyanocobal 0-01 S pirit nayak) nayak) 00:00: - [facility] 00 [facility] Vitamin B12 Vitamin B12 2020-06 No 1000ug Common (Cyanocobal (Cyanocobal 0-01 S pirit nayak) nayak) 00:00: - [facility] 00 [facility] Vitamin B12 Vitamin B12 2020-06 No 1000ug Common (Cyanocobal (Cyanocobal 0-01 S pirit nayak) nayak) 00:00: - [facility] 00 [facility] Vitamin B12 Vitamin B12 2020-06 No 1000ug Common (Cyanocobal (Cyanocobal 0-01 S pirit nayak) nayak) 00:00: - [facility] 00 [facility] Vitamin B12 Vitamin B12 2020-06 No 1000ug Common (Cyanocobal (Cyanocobal 0-01 S pirit nayak) nayak) 00:00: - [facility] 00 [facility] Vitamin B12 Vitamin B12 2020-06 No 1000ug Common (Cyanocobal (Cyanocobal 0-01 S pirit nayak) nayak) 00:00: - [facility] 00 [facility] Vitamin B12 Vitamin B12 2020-06 No 1000ug Common (Cyanocobal (Cyanocobal 0-01 S pirit nayak) nayak) 00:00: - [facility] 00 [facility] Vitamin B12 Vitamin B12 2020-06 No 1000ug Common (Cyanocobal (Cyanocobal 0-01 S pirit nayak) nayak) 00:00: - [facility] 00 [facility] Vitamin B12 Vitamin B12 2020-06 No 1000ug Common (Cyanocobal (Cyanocobal 0-01 S pirit nayak) nayak) 00:00: - [facility] 00 [facility] Vitamin B12 Vitamin B12 2020-06 No 1000ug Common (Cyanocobal (Cyanocobal 0-01 S pirit nayak) nayak) 00:00: - [facility] Vitamin B12 Vitamin B12 2020-06 No 1000ug Common (Cyanocobal (Cyanocobal 0-01 S pirit nayak) nayak) 00:00: - [facility] Vitamin B12 Vitamin B12 2020-06 No 1000ug Common (Cyanocobal (Cyanocobal 0-01 S pirit nayak) nayak) 00:00: - [facility] Vitamin B12 Vitamin B12 2020-06 No 1000ug Common (Cyanocobal (Cyanocobal 0-01 S pirit nayak) nayak) 00:00: - [facility] Vitamin B12 Vitamin B12 2020-06 No 1000ug Common (Cyanocobal (Cyanocobal 0-01 S pirit nayak) nayak) 00:00: - [facility] Vitamin B12 Vitamin B12 2020-06 No 1000ug Common (Cyanocobal (Cyanocobal 0-01 S pirit nayak) nayak) 00:00: - [facility] Vitamin B12 Vitamin B12 2020-06 No 1000ug Common (Cyanocobal (Cyanocobal 0-01 S pirit nayak) nayak) 00:00: - [facility] Vitamin B12 Vitamin B12 2020-06 No 1000ug Common (Cyanocobal (Cyanocobal 0-01 S pirit nayak) nayak) 00:00: - [facility] Vitamin B12 Vitamin B12 2020-06 No 1000ug Common (Cyanocobal (Cyanocobal 0-01 S pirit nayak) nayak) 00:00: - [facility] Vitamin B12 Vitamin B12 2020-06 No 1000ug Common (Cyanocobal (Cyanocobal 0-01 S pirit nayak) nayak) 00:00: - [facility] Vitamin B12 Vitamin B12 2020-06 No 1000ug Common (Cyanocobal (Cyanocobal 0-01 S pirit nayak) nayak) 00:00: - [facility] Vitamin B12 Vitamin B12 2020-1 No 1000ug Common (Cyanocobal (Cyanocobal 0-01 S pirit nayak) nayak) 00:00: - [facility] Vitamin B12 Vitamin B12 2020-1 No 1000ug Common (Cyanocobal (Cyanocobal 0-01 S pirit nayak) nayak) 00:00: - [facility] Vitamin B12 Vitamin B12 2020-1 No 1000ug Common (Cyanocobal (Cyanocobal 0-01 S pirit nayak) nayak) 00:00: - [facility] Vitamin B12 Vitamin B12 2020-1 No 1000ug Common (Cyanocobal (Cyanocobal 0-01 S pirit nayak) nayak) 00:00: - [facility] Vitamin B12 Vitamin B12 2020-1 No 1000ug Common (Cyanocobal (Cyanocobal 0-01 S pirit nayak) nayak) 00:00: - [facility] Vitamin B12 Vitamin B12 2020-0 No 1000ug Common (Cyanocobal (Cyanocobal 8-26 S pirit nayak) nayak) 00:00: - [facility] Vitamin B12 Vitamin B12 2020-0 No 1000ug Common (Cyanocobal (Cyanocobal 8-26 S pirit nayak) nayak) 00:00: - [facility] Vitamin B12 Vitamin B12 2020-0 No 1000ug Common (Cyanocobal (Cyanocobal 8-26 S pirit nayak) nayak) 00:00: - [facility] Vitamin B12 Vitamin B12 2020-0 No 1000ug Common (Cyanocobal (Cyanocobal 8-26 S pirit nayak) nayak) 00:00: - [facility] Vitamin B12 Vitamin B12 2020-0 No 1000ug Common (Cyanocobal (Cyanocobal 8-26 S pirit nayak) nayak) 00:00: - [facility] Vitamin B12 Vitamin B12 2020-0 No 1000ug Common (Cyanocobal (Cyanocobal 8-26 S pirit nayak) nayak) 00:00: - [facility] Vitamin B12 Vitamin B12 2020-0 No 1000ug Common (Cyanocobal (Cyanocobal 8-26 S pirit nayak) nayak) 00:00: - [facility] Vitamin B12 Vitamin B12 1-0 No 1000ug Common (Cyanocobal (Cyanocobal 8-26 S pirit nayak) nayak) 00:00: - [facility] Vitamin B12 Vitamin B12 1-0 No 1000ug Common (Cyanocobal (Cyanocobal 8-26 S pirit nayak) nayak) 00:00: - [facility] Vitamin B12 Vitamin B12 2020-0 No 1000ug Common (Cyanocobal (Cyanocobal 8-26 S pirit nayak) nayak) 00:00: - [facility] Vitamin B12 Vitamin B12 1-0 No 1000ug Common (Cyanocobal (Cyanocobal 8-26 S pirit nayak) nayak) 00:00: - [facility] Vitamin B12 Vitamin B12 1-0 No 1000ug Common (Cyanocobal (Cyanocobal 8-26 S pirit nayak) nayak) 00:00: - [facility] Vitamin B12 Vitamin B12 2020-0 No 1000ug Common (Cyanocobal (Cyanocobal 8-26 S pirit nayak) nayak) 00:00: - [facility] Vitamin B12 Vitamin B12 2020-0 No 1000ug Common (Cyanocobal (Cyanocobal 8-26 S pirit nayak) nayak) 00:00: - [facility] Vitamin B12 Vitamin B12 1-0 No 1000ug Common (Cyanocobal (Cyanocobal 8-26 S pirit nayak) nayak) 00:00: - [facility] Vitamin B12 Vitamin B12 1-0 No 1000ug Common (Cyanocobal (Cyanocobal 8-26 S pirit nayak) nayak) 00:00: - [facility] Vitamin B12 Vitamin B12 2021-0 No 1000ug Common (Cyanocobal (Cyanocobal 8-26 S pirit nayak) nayak) 00:00: - [facility] Vitamin B12 Vitamin B12 2021-0 No 1000ug Common (Cyanocobal (Cyanocobal 8-26 S pirit nayak) nayak) 00:00: - [facility] Vitamin B12 Vitamin B12 1-0 No 1000ug Common (Cyanocobal (Cyanocobal 8-26 S pirit nayak) nayak) 00:00: - [facility] Vitamin B12 Vitamin B12 2020-0 No 1000ug Common (Cyanocobal (Cyanocobal 8-26 S pirit nayak) nayak) 00:00: - [facility] Vitamin B12 Vitamin B12 2020-0 No 1000ug Common (Cyanocobal (Cyanocobal 8-26 S pirit nayak) nayak) 00:00: - [facility] Vitamin B12 Vitamin B12 2020-0 No 1000ug Common (Cyanocobal (Cyanocobal 8-26 S pirit nayak) nayak) 00:00: - [facility] Vitamin B12 Vitamin B12 2020-0 No 1000ug Common (Cyanocobal (Cyanocobal 8-26 S pirit nayak) nayak) 00:00: - [facility] Vitamin B12 Vitamin B12 2020-0 No 1000ug Common (Cyanocobal (Cyanocobal 8-26 S pirit nayak) nayak) 00:00: - [facility] Vitamin B12 Vitamin B12 2020-0 No 1000ug Common (Cyanocobal (Cyanocobal 8-26 S pirit nayak) nayak) 00:00: - [facility] Vitamin B12 Vitamin B12 2020-0 No 1000ug Common (Cyanocobal (Cyanocobal 8-26 S pirit nayak) nayak) 00:00: - [facility] Vitamin B12 Vitamin B12 2020-0 No 1000ug Common (Cyanocobal (Cyanocobal 8-26 S pirit nayak) nayak) 00:00: - [facility] estradioL 2021-0 Yes [id number] 1g Insert 1 g [facility] 0.01 % (0.1 8-19 into ity of mg/gram) 00:00: vagina [place] vaginal 00 weekly. Medical cream Pea size Branch In the labia/vagi na every night for 6 weeks then 3 times a week estradioL 202-0 Yes [id number] 1g Insert 1 g [facility] 0.01 % (0.1 8-19 into ity of mg/gram) 00:00: vagina [place] vaginal 00 weekly. Medical cream Pea size Branch In the labia/vagi na every night for 6 weeks then 3 times a week estradioL 202-0 Yes 1g Insert 1 g [facility] 0.01 % (0.1 8-19 into ity of mg/gram) 00:00: vagina [place] vaginal 00 weekly. Medical cream Pea size Branch In the labia/vagi na every night for 6 weeks then 3 times a week estradioL 0 Yes 1g Insert 1 g [facility] 0.01 % (0.1 8-19 into ity of mg/gram) 00:00: vagina [place] vaginal 00 weekly. Medical cream Pea size Branch In the labia/vagi na every night for 6 weeks then 3 times a week estradioL Yes 1g Insert 1 g [facility] 0.01 % (0.1 8-19 into ity of mg/gram) 00:00: vagina [place] vaginal 00 weekly. Medical cream Pea size Branch In the labia/vagi na every night for 6 weeks then 3 times a week estradioL Yes 1g Insert 1 g [facility] 0.01 % (0.1 8-19 into ity of mg/gram) 00:00: vagina [place] vaginal 00 weekly. Medical cream Pea size Branch In the labia/vagi na every night for 6 weeks then 3 times a week estradioL Yes 1g Insert 1 g [facility] 0.01 % (0.1 8-19 into ity of mg/gram) 00:00: vagina [place] vaginal 00 weekly. Medical cream Pea size Branch In the labia/vagi na every night for 6 weeks then 3 times a week estradioL Yes 1g Insert 1 g [facility] 0.01 % (0.1 8-19 into ity of mg/gram) 00:00: vagina [place] vaginal 00 weekly. Medical cream Pea size Branch In the labia/vagi na every night for 6 weeks then 3 times a week estradioL Yes 1g Insert 1 g [facility] 0.01 % (0.1 8-19 into ity of mg/gram) 00:00: vagina [place] vaginal 00 weekly. Medical cream Pea size Branch In the labia/vagi na every night for 6 weeks then 3 times a week estradioL Yes 1g Insert 1 g [facility] 0.01 % (0.1 8-19 into ity of mg/gram) 00:00: vagina [place] vaginal 00 weekly. Medical cream Pea size Branch In the labia/vagi na every night for 6 weeks then 3 times a week estradioL Yes 1g Insert 1 g [facility] 0.01 % (0.1 8-19 into ity of mg/gram) 00:00: vagina [place] vaginal 00 weekly. Medical cream Pea size Branch In the labia/vagi na every night for 6 weeks then 3 times a week estradioL Yes 1g Insert 1 g [facility] 0.01 % (0.1 8-19 into ity of mg/gram) 00:00: vagina [place] vaginal 00 weekly. Medical cream Pea size Branch In the labia/vagi na every night for 6 weeks then 3 times a week estradioL Yes 1g Insert 1 g [facility] 0.01 % (0.1 8-19 into ity of mg/gram) 00:00: vagina [place] vaginal 00 weekly. Medical cream Pea size Branch In the labia/vagi na every night for 6 weeks then 3 times a week estradioL Yes 1g Insert 1 g [facility] 0.01 % (0.1 8-19 into ity of mg/gram) 00:00: vagina [place] vaginal 00 weekly. Medical cream Pea size Branch In the labia/vagi na every night for 6 weeks then 3 times a week estradioL Yes 1g Insert 1 g [facility] 0.01 % (0.1 8-19 into ity of mg/gram) 00:00: vagina [place] vaginal 00 weekly. Medical cream Pea size Branch In the labia/vagi na every night for 6 weeks then 3 times a week estradioL Yes 1g Insert 1 g [facility] 0.01 % (0.1 8-19 into ity of mg/gram) 00:00: vagina [place] vaginal 00 weekly. Medical cream Pea size Branch In the labia/vagi na every night for 6 weeks then 3 times a week estradioL Yes 1g Insert 1 g [facility] 0.01 % (0.1 8-19 into ity of mg/gram) 00:00: vagina [place] vaginal 00 weekly. Medical cream Pea size Branch In the labia/vagi na every night for 6 weeks then 3 times a week estradioL Yes 1g Insert 1 g [facility] 0.01 % (0.1 8-19 into ity of mg/gram) 00:00: vagina [place] vaginal 00 weekly. Medical cream Pea size Branch In the labia/vagi na every night for 6 weeks then 3 times a week estradioL 2020-0 Yes [id number] 1g Insert 1 g [facility] 0.01 % (0.1 8-19 into ity of mg/gram) 00:00: vagina [place] vaginal 00 weekly. Medical cream Pea size Branch In the labia/vagi na every night for 6 weeks then 3 times a week estradioL 2020-0 Yes [id number] 1g Insert 1 g [facility] 0.01 % (0.1 8-19 into ity of mg/gram) 00:00: vagina [place] vaginal 00 weekly. Medical cream Pea size Branch In the labia/vagi na every night for 6 weeks then 3 times a week Tamsulosin Tamsulosin 2020- No 1{capsu QD Tamsulosin HCl 0.4 MG HCl 0.4 MG 7- 10-04 le} HCl 0.4 MG 00:00: 00:00 00 :00 Tamsulosin Tamsulosin 2020- No 1{capsu QD Tamsulosin HCl 0.4 MG HCl 0.4 MG 7- 10-04 le} HCl 0.4 MG 00:00: 00:00 00 :00 Tamsulosin Tamsulosin 2020- No 1{capsu QD Tamsulosin HCl 0.4 MG HCl 0.4 MG 7- 10-04 le} HCl 0.4 MG 00:00: 00:00 00 :00 Tamsulosin Tamsulosin 2020- No 1{capsu QD Tamsulosin HCl 0.4 MG HCl 0.4 MG 7-06 10-04 le} HCl 0.4 MG 00:00: 00:00 00 :00 Tamsulosin Tamsulosin 2020- No 1{capsu QD Tamsulosin HCl 0.4 MG HCl 0.4 MG 7-06 10-04 le} HCl 0.4 MG 00:00: 00:00 00 :00 Tamsulosin Tamsulosin 2020- No 1{capsu QD Tamsulosin HCl 0.4 MG HCl 0.4 MG 7- 10-04 le} HCl 0.4 MG 00:00: 00:00 00 :00 Tamsulosin Tamsulosin 0 1- No 1{capsu QD Tamsulosin HCl 0.4 MG HCl 0.4 MG 12-26 le} HCl 0.4 MG 00:00: 00:00 00 :00 Tamsulosin Tamsulosin 2020-0 2021- No 1{capsu QD Tamsulosin HCl 0.4 MG HCl 0.4 MG 12-26 le} HCl 0.4 MG 00:00: 00:00 00 :00 Tamsulosin Tamsulosin 0 2021- No 1{capsu QD Tamsulosin HCl 0.4 MG HCl 0.4 MG 12-26 le} HCl 0.4 MG 00:00: 00:00 00 :00 Tamsulosin Tamsulosin 0 1- No 1{capsu QD Tamsulosin HCl 0.4 MG HCl 0.4 MG 12-26 le} HCl 0.4 MG 00:00: 00:00 00 :00 Tamsulosin Tamsulosin 0 1- No 1{capsu QD Tamsulosin HCl 0.4 MG HCl 0.4 MG 12-26 le} HCl 0.4 MG 00:00: 00:00 00 :00 Tamsulosin Tamsulosin 2020-0 1- No 1{capsu QD Tamsulosin HCl 0.4 MG HCl 0.4 MG 12-26 le} HCl 0.4 MG 00:00: 00:00 00 :00 Vitamin B12 Vitamin B12 0 No 1000ug Common (Cyanocobal (Cyanocobal 7- S pirit nayak) nayak) 00:00: - [facility] Vitamin B12 Vitamin B12 2020-0 No 1000ug Common (Cyanocobal (Cyanocobal 7-01 S pirit nayak) nayak) 00:00: - [facility] Vitamin B12 Vitamin B12 2020-0 No 1000ug Common (Cyanocobal (Cyanocobal 7- S pirit nayak) nayak) 00:00: - [facility] Vitamin B12 Vitamin B12 2020-0 No 1000ug Common (Cyanocobal (Cyanocobal 7- S pirit nayak) nayak) 00:00: - [facility] Vitamin B12 Vitamin B12 2021-0 No 1000ug Common (Cyanocobal (Cyanocobal 7-01 S pirit nayak) nayak) 00:00: - [facility] Vitamin B12 Vitamin B12 2020-0 No 1000ug Common (Cyanocobal (Cyanocobal 7-01 S pirit nayak) nayak) 00:00: - [facility] Vitamin B12 Vitamin B12 2020-0 No 1000ug Common (Cyanocobal (Cyanocobal 7-01 S pirit nayak) nayak) 00:00: - [facility] Vitamin B12 Vitamin B12 2020-0 No 1000ug Common (Cyanocobal (Cyanocobal 7-01 S pirit nayak) nayak) 00:00: - [facility] Vitamin B12 Vitamin B12 2020-0 No 1000ug Common (Cyanocobal (Cyanocobal 7-01 S pirit nayak) nayak) 00:00: - [facility] Vitamin B12 Vitamin B12 2020-0 No 1000ug Common (Cyanocobal (Cyanocobal 7-01 S pirit nayak) nayak) 00:00: - [facility] Vitamin B12 Vitamin B12 2020-0 No 1000ug Common (Cyanocobal (Cyanocobal 7-01 S pirit nayka) nayak) 00:00: - [facility] Vitamin B12 Vitamin B12 1-0 No 1000ug Common (Cyanocobal (Cyanocobal 7-01 S pirit nayak) nayak) 00:00: - [facility] Vitamin B12 Vitamin B12 2020-0 No 1000ug Common (Cyanocobal (Cyanocobal 7-01 S pirit nayak) nayak) 00:00: - [facility] Vitamin B12 Vitamin B12 2021-0 No 1000ug Common (Cyanocobal (Cyanocobal 7-01 S pirit nayak) nayak) 00:00: - [facility] Vitamin B12 Vitamin B12 2021-0 No 1000ug Common (Cyanocobal (Cyanocobal 7-01 S pirit nayak) nayak) 00:00: - [facility] Vitamin B12 Vitamin B12 2021-0 No 1000ug Common (Cyanocobal (Cyanocobal 7-01 S pirit nayak) nayak) 00:00: - [facility] Vitamin B12 Vitamin B12 2020-0 No 1000ug Common (Cyanocobal (Cyanocobal 7-01 S pirit nayak) nayak) 00:00: - [facility] Vitamin B12 Vitamin B12 2020-0 No 1000ug Common (Cyanocobal (Cyanocobal 7-01 S pirit nayak) nayak) 00:00: - [facility] Vitamin B12 Vitamin B12 2020-0 No 1000ug Common (Cyanocobal (Cyanocobal 7-01 S pirit nayak) nayak) 00:00: - [facility] Vitamin B12 Vitamin B12 2020-0 No 1000ug Common (Cyanocobal (Cyanocobal 7-01 S pirit nayak) nayak) 00:00: - [facility] Vitamin B12 Vitamin B12 2020-0 No 1000ug Common (Cyanocobal (Cyanocobal 7-01 S pirit nayak) nayak) 00:00: - [facility] Vitamin B12 Vitamin B12 2020-0 No 1000ug Common (Cyanocobal (Cyanocobal 7-01 S pirit nayak) nayak) 00:00: - [facility] Vitamin B12 Vitamin B12 2020-0 No 1000ug Common (Cyanocobal (Cyanocobal 7-01 S pirit nayak) nayak) 00:00: - [facility] Vitamin B12 Vitamin B12 2020-0 No 1000ug Common (Cyanocobal (Cyanocobal 7-01 S pirit nayak) nayak) 00:00: - [facility] Vitamin B12 Vitamin B12 2020-0 No 1000ug Common (Cyanocobal (Cyanocobal 7-01 S pirit nayak) nayak) 00:00: - [facility] Vitamin B12 Vitamin B12 2020-0 No 1000ug Common (Cyanocobal (Cyanocobal 7-01 S pirit nayak) nayak) 00:00: - [facility] Vitamin B12 Vitamin B12 2020-0 No 1000ug Common (Cyanocobal (Cyanocobal 7-01 S pirit nayak) nayak) 00:00: - [facility] Flagyl 500 2020-0 No 1mg mg tablet 6-22 00:00: 00 Diflucan 2021-0 No 1mg 150 mg 6-17 tablet 00:00: 00 Vitamin B12 Vitamin B12 2020-0 No 1000ug Common (Cyanocobal (Cyanocobal 6-15 S pirit nayak) nayak) 00:00: - [facility] Vitamin B12 Vitamin B12 2020-0 No 1000ug Common (Cyanocobal (Cyanocobal 6-15 S pirit nayak) nayak) 00:00: - [facility] Vitamin B12 Vitamin B12 2020-0 No 1000ug Common (Cyanocobal (Cyanocobal 6-15 S pirit nayak) nayak) 00:00: - [facility] Vitamin B12 Vitamin B12 2020-0 No 1000ug Common (Cyanocobal (Cyanocobal 6-15 S pirit nayak) nayak) 00:00: - [facility] Vitamin B12 Vitamin B12 2020-0 No 1000ug Common (Cyanocobal (Cyanocobal 6-15 S pirit nayak) nayak) 00:00: - [facility] Vitamin B12 Vitamin B12 2020-0 No 1000ug Common (Cyanocobal (Cyanocobal 6-15 S pirit nayak) nayak) 00:00: - [facility] Vitamin B12 Vitamin B12 2020-0 No 1000ug Common (Cyanocobal (Cyanocobal 6-15 S pirit nayak) nayak) 00:00: - [facility] Vitamin B12 Vitamin B12 2020-0 No 1000ug Common (Cyanocobal (Cyanocobal 6-15 S pirit nayak) nayak) 00:00: - [facility] Vitamin B12 Vitamin B12 2020-0 No 1000ug Common (Cyanocobal (Cyanocobal 6-15 S pirit nayak) nayak) 00:00: - [facility] Vitamin B12 Vitamin B12 1-0 No 1000ug Common (Cyanocobal (Cyanocobal 6-15 S pirit nayak) nayak) 00:00: - [facility] Vitamin B12 Vitamin B12 2021-0 No 1000ug Common (Cyanocobal (Cyanocobal 6-15 S pirit nayak) nayak) 00:00: - [facility] Vitamin B12 Vitamin B12 1-0 No 1000ug Common (Cyanocobal (Cyanocobal 6-15 S pirit nayak) nayak) 00:00: - [facility] Vitamin B12 Vitamin B12 2020-0 No 1000ug Common (Cyanocobal (Cyanocobal 6-15 S pirit nayak) nayak) 00:00: - [facility] Vitamin B12 Vitamin B12 2020-0 No 1000ug Common (Cyanocobal (Cyanocobal 6-15 S pirit nayak) nayak) 00:00: - [facility] Vitamin B12 Vitamin B12 2020-0 No 1000ug Common (Cyanocobal (Cyanocobal 6-15 S pirit nayak) nayak) 00:00: - [facility] Vitamin B12 Vitamin B12 2020-0 No 1000ug Common (Cyanocobal (Cyanocobal 6-15 S pirit nayak) nayak) 00:00: - [facility] Vitamin B12 Vitamin B12 2020-0 No 1000ug Common (Cyanocobal (Cyanocobal 6-15 S pirit nayak) nayak) 00:00: - [facility] Vitamin B12 Vitamin B12 2020-0 No 1000ug Common (Cyanocobal (Cyanocobal 6-15 S pirit nayak) nayak) 00:00: - [facility] Vitamin B12 Vitamin B12 2020-0 No 1000ug Common (Cyanocobal (Cyanocobal 6-15 S pirit nayak) nayak) 00:00: - [facility] Vitamin B12 Vitamin B12 1-0 No 1000ug Common (Cyanocobal (Cyanocobal 6-15 S pirit nayak) nayak) 00:00: - [facility] Vitamin B12 Vitamin B12 2020-0 No 1000ug Common (Cyanocobal (Cyanocobal 6-15 S pirit nayak) nayak) 00:00: - [facility] Vitamin B12 Vitamin B12 1-0 No 1000ug Common (Cyanocobal (Cyanocobal 6-15 S pirit nayak) nayak) 00:00: - [facility] Vitamin B12 Vitamin B12 1-0 No 1000ug Common (Cyanocobal (Cyanocobal 6-15 S pirit nayak) nayak) 00:00: - [facility] Vitamin B12 Vitamin B12 2020-0 No 1000ug Common (Cyanocobal (Cyanocobal 6-15 S pirit nayak) nayak) 00:00: - [facility] Vitamin B12 Vitamin B12 No 1000ug Common (Cyanocobal (Cyanocobal 6-15 S pirit nayak) nayak) 00:00: - [facility] Vitamin B12 Vitamin B12 No 1000ug Common (Cyanocobal (Cyanocobal 6-15 S pirit nayak) nayak) 00:00: - [facility] Vitamin B12 Vitamin B12 No 1000ug Common (Cyanocobal (Cyanocobal 6-15 S pirit nayak) nayak) 00:00: - [facility] esomeprazol Yes 40mg Take 40 mg Univers e (NEXIUM) 5-06 by mouth ity o f 40 mg 19:21: daily. [place] capsule 16 Medical Branch budesonide- Yes 2{puff} [...] Use 1 Uni vers (NASONEX) 5-06 } [place] in ity of 50 19:21: each [place] mcg/actuati 16 nostril. Medi jesus on nasal Branch spray clopidogrel Yes 75mg Take 75 mg Univers (PLAVIX) 75 5-06 by mouth ity of mg tablet 19:21: daily. [place] 16 Medical Branch esomeprazol Yes 40mg Take 40 mg Univers e (NEXIUM) 5-06 by mouth ity o f 40 mg 19:21: daily. [place] capsule 16 Medical Branch budesonide- Yes 2{puff} Inhale 2 [facility] formoterol 5-06 Puffs 2 ity of (SYMBICORT) 19:21: (two) [place] 160-4.5 16 times Medical mcg/actuati daily. Branch on inhaler nitroglycer [address] 0.4 U nivers in 5-06 mg under ity of (NITROSTAT) 19:21: the tongue [place] 0.4 mg 16 every 5 Medical sublingual (five) Branch tablet minutes as needed for Chest pain. mometasone 0 Yes 1{spray Use 1 Uni vers (NASONEX) 5-06 } [place] in ity of 50 19:21: each [place] mcg/actuati 16 nostril. Medi jesus on nasal Branch spray clopidogrel 0 Yes 75mg Take 75 mg Univers (PLAVIX) 75 5-06 by mouth ity of mg tablet 19:21: daily. [place] 16 Medical Branch Vitamin B12 Vitamin B12 No 1000ug Common (Cyanocobal (Cyanocobal 5-06 S pirit nayak) nayak) 00:00: - [facility] Vitamin B12 Vitamin B12 0 No 1000ug Common (Cyanocobal (Cyanocobal 5-06 S pirit nayak) nayak) 00:00: - [facility] Vitamin B12 Vitamin B12 0 No 1000ug Common (Cyanocobal (Cyanocobal 5-06 S pirit nayak) nayak) 00:00: - [facility] Vitamin B12 Vitamin B12 0 No 1000ug Common (Cyanocobal (Cyanocobal 5-06 S pirit nayak) nayak) 00:00: - [facility] Vitamin B12 Vitamin B12 0 No 1000ug Common (Cyanocobal (Cyanocobal 5-06 S pirit nayak) nayak) 00:00: - [facility] Vitamin B12 Vitamin B12 0 No 1000ug Common (Cyanocobal (Cyanocobal 5-06 S pirit nayak) nayak) 00:00: - [facility] Vitamin B12 Vitamin B12 2020-0 No 1000ug Common (Cyanocobal (Cyanocobal 5-06 S pirit nayak) nayak) 00:00: - [facility] Vitamin B12 Vitamin B12 2020-0 No 1000ug Common (Cyanocobal (Cyanocobal 5-06 S pirit nayak) nayak) 00:00: - [facility] Vitamin B12 Vitamin B12 0 No 1000ug Common (Cyanocobal (Cyanocobal 5-06 S pirit nayak) nayak) 00:00: - [facility] Vitamin B12 Vitamin B12 1-0 No 1000ug Common (Cyanocobal (Cyanocobal 5-06 S pirit nayak) nayak) 00:00: - [facility] Vitamin B12 Vitamin B12 2021-0 No 1000ug Common (Cyanocobal (Cyanocobal 5-06 S pirit nayak) nayak) 00:00: - [facility] Vitamin B12 Vitamin B12 2021-0 No 1000ug Common (Cyanocobal (Cyanocobal 5-06 S pirit nayak) nayak) 00:00: - [facility] Vitamin B12 Vitamin B12 2020-0 No 1000ug Common (Cyanocobal (Cyanocobal 5-06 S pirit nayak) nayak) 00:00: - [facility] Vitamin B12 Vitamin B12 2021-0 No 1000ug Common (Cyanocobal (Cyanocobal 5-06 S pirit nayak) nayak) 00:00: - [facility] Vitamin B12 Vitamin B12 1-0 No 1000ug Common (Cyanocobal (Cyanocobal 5-06 S pirit nayak) nayak) 00:00: - [facility] Vitamin B12 Vitamin B12 1-0 No 1000ug Common (Cyanocobal (Cyanocobal 5-06 S pirit nayak) nayak) 00:00: - [facility] Vitamin B12 Vitamin B12 1-0 No 1000ug Common (Cyanocobal (Cyanocobal 5-06 S pirit nayak) nayak) 00:00: - [facility] Vitamin B12 Vitamin B12 2021-0 No 1000ug Common (Cyanocobal (Cyanocobal 5-06 S pirit nayak) nayak) 00:00: - [facility] Vitamin B12 Vitamin B12 2021-0 No 1000ug Common (Cyanocobal (Cyanocobal 5-06 S pirit nayak) nayak) 00:00: - [facility] Vitamin B12 Vitamin B12 2021-0 No 1000ug Common (Cyanocobal (Cyanocobal 5-06 S pirit nayak) nayak) 00:00: - [facility] Vitamin B12 Vitamin B12 2021-0 No 1000ug Common (Cyanocobal (Cyanocobal 5-06 S pirit nayak) nayak) 00:00: - [facility] Vitamin B12 Vitamin B12 2020-0 No 1000ug Common (Cyanocobal (Cyanocobal 5-06 S pirit nayak) nayak) 00:00: - [facility] Vitamin B12 Vitamin B12 2020-0 No 1000ug Common (Cyanocobal (Cyanocobal 5-06 S pirit nayak) nayak) 00:00: - [facility] Vitamin B12 Vitamin B12 2020-0 No 1000ug Common (Cyanocobal (Cyanocobal 5-06 S pirit nayak) nayak) 00:00: - [facility] Vitamin B12 Vitamin B12 2020-0 No 1000ug Common (Cyanocobal (Cyanocobal 5-06 S pirit nayak) nayak) 00:00: - [facility] Vitamin B12 Vitamin B12 2020-0 No 1000ug Common (Cyanocobal (Cyanocobal 5-06 S pirit nayak) nayak) 00:00: - [facility] Vitamin B12 Vitamin B12 2020-0 No 1000ug Common (Cyanocobal (Cyanocobal 5-06 S pirit nayak) nayak) 00:00: - [facility] Valtrex 1 Valtrex 1 2020-2020- No 1{table TID Valtrex 1 GM GM 5-06 05-13 t} GM 00:00: 00:00 00 :00 ergocalcife 2020-0 Yes Take by Uni vers rol, 4-26 mouth. ity of vitamin D2, 13:56: [place] (VITAMIN D 06 Medical ORAL) Branch ergocalcife 2020-0 Yes Take by Uni vers rol, 4-26 mouth. ity of vitamin D2, 13:56: [place] (VITAMIN D 06 Medical ORAL) Branch Vitamin B12 Vitamin B12 2020-0 No 1000ug Common (Cyanocobal (Cyanocobal 3-23 S pirit nayak) nayak) 00:00: - [facility] Vitamin B12 Vitamin B12 2020-0 No 1000ug Common (Cyanocobal (Cyanocobal 3-23 S pirit nayak) nayak) 00:00: - [facility] Vitamin B12 Vitamin B12 2021-0 No 1000ug Common (Cyanocobal (Cyanocobal 3-23 S pirit nayak) nayak) 00:00: - [facility] Vitamin B12 Vitamin B12 1-0 No 1000ug Common (Cyanocobal (Cyanocobal 3-23 S pirit nayak) nayak) 00:00: - [facility] Vitamin B12 Vitamin B12 1-0 No 1000ug Common (Cyanocobal (Cyanocobal 3-23 S pirit nayak) nayak) 00:00: - [facility] Vitamin B12 Vitamin B12 1-0 No 1000ug Common (Cyanocobal (Cyanocobal 3-23 S pirit nayak) nayak) 00:00: - [facility] Vitamin B12 Vitamin B12 2020-0 No 1000ug Common (Cyanocobal (Cyanocobal 3-23 S pirit nayak) nayak) 00:00: - [facility] Vitamin B12 Vitamin B12 1-0 No 1000ug Common (Cyanocobal (Cyanocobal 3-23 S pirit nayak) nayak) 00:00: - [facility] Vitamin B12 Vitamin B12 2020-0 No 1000ug Common (Cyanocobal (Cyanocobal 3-23 S pirit nayak) nayak) 00:00: - [facility] Vitamin B12 Vitamin B12 2020-0 No 1000ug Common (Cyanocobal (Cyanocobal 3-23 S pirit nayak) nayak) 00:00: - [facility] Vitamin B12 Vitamin B12 1-0 No 1000ug Common (Cyanocobal (Cyanocobal 3-23 S pirit nayak) nayak) 00:00: - [facility] Vitamin B12 Vitamin B12 2021-0 No 1000ug Common (Cyanocobal (Cyanocobal 3-23 S pirit nayak) nayak) 00:00: - [facility] Vitamin B12 Vitamin B12 2021-0 No 1000ug Common (Cyanocobal (Cyanocobal 3-23 S pirit nayak) nayak) 00:00: - [facility] Vitamin B12 Vitamin B12 2021-0 No 1000ug Common (Cyanocobal (Cyanocobal 3-23 S pirit nayak) nayak) 00:00: - [facility] Vitamin B12 Vitamin B12 2021-0 No 1000ug Common (Cyanocobal (Cyanocobal 3-23 S pirit nayak) nayak) 00:00: - [facility] Vitamin B12 Vitamin B12 2021-0 No 1000ug Common (Cyanocobal (Cyanocobal 3-23 S pirit nayak) nayak) 00:00: - [facility] Vitamin B12 Vitamin B12 2021-0 No 1000ug Common (Cyanocobal (Cyanocobal 3-23 S pirit nayak) nayak) 00:00: - [facility] Vitamin B12 Vitamin B12 2021-0 No 1000ug Common (Cyanocobal (Cyanocobal 3-23 S pirit nayak) nayak) 00:00: - [facility] Vitamin B12 Vitamin B12 1-0 No 1000ug Common (Cyanocobal (Cyanocobal 3-23 S pirit nayak) nayak) 00:00: - [facility] Vitamin B12 Vitamin B12 1-0 No 1000ug Common (Cyanocobal (Cyanocobal 3-23 S pirit nayak) nayak) 00:00: - [facility] Vitamin B12 Vitamin B12 1-0 No 1000ug Common (Cyanocobal (Cyanocobal 3-23 S pirit nayak) nayak) 00:00: - [facility] Vitamin B12 Vitamin B12 1-0 No 1000ug Common (Cyanocobal (Cyanocobal 3-23 S pirit nayak) nayak) 00:00: - [facility] Vitamin B12 Vitamin B12 1-0 No 1000ug Common (Cyanocobal (Cyanocobal 3-23 S pirit nayak) nayak) 00:00: - [facility] Vitamin B12 Vitamin B12 2021-0 No 1000ug Common (Cyanocobal (Cyanocobal 3-23 S pirit nayak) nayak) 00:00: - [facility] Vitamin B12 Vitamin B12 2021-0 No 1000ug Common (Cyanocobal (Cyanocobal 3-23 S pirit nayak) nayak) 00:00: - [facility] Vitamin B12 Vitamin B12 2021-0 No 1000ug Common (Cyanocobal (Cyanocobal 3-23 S pirit nayak) nayak) 00:00: - [facility] Vitamin B12 Vitamin B12 2021-0 No 1000ug Common (Cyanocobal (Cyanocobal 3-23 S pirit nayak) nayak) 00:00: - [facility] Vitamin B12 Vitamin B12 2020-0 No 1000ug Common (Cyanocobal (Cyanocobal 2-23 S pirit nayak) nayak) 00:00: - [facility] Vitamin B12 Vitamin B12 2020-0 No 1000ug Common (Cyanocobal (Cyanocobal 2-23 S pirit nayak) nayak) 00:00: - [facility] Vitamin B12 Vitamin B12 2020-0 No 1000ug Common (Cyanocobal (Cyanocobal 2-23 S pirit nayak) nayak) 00:00: - [facility] Vitamin B12 Vitamin B12 2020-0 No 1000ug Common (Cyanocobal (Cyanocobal 2-23 S pirit nayak) nayak) 00:00: - [facility] Vitamin B12 Vitamin B12 2020-0 No 1000ug Common (Cyanocobal (Cyanocobal 2-23 S pirit nayak) nayak) 00:00: - [facility] Vitamin B12 Vitamin B12 2020-0 No 1000ug Common (Cyanocobal (Cyanocobal 2-23 S pirit nayak) nayak) 00:00: - [facility] Vitamin B12 Vitamin B12 2020-0 No 1000ug Common (Cyanocobal (Cyanocobal 2-23 S pirit nayak) nayak) 00:00: - [facility] Vitamin B12 Vitamin B12 1-0 No 1000ug Common (Cyanocobal (Cyanocobal 2-23 S pirit nayak) nayak) 00:00: - [facility] Vitamin B12 Vitamin B12 1-0 No 1000ug Common (Cyanocobal (Cyanocobal 2-23 S pirit nayak) nayak) 00:00: - [facility] Vitamin B12 Vitamin B12 2021-0 No 1000ug Common (Cyanocobal (Cyanocobal 2-23 S pirit nayak) nayak) 00:00: - [facility] Vitamin B12 Vitamin B12 2021-0 No 1000ug Common (Cyanocobal (Cyanocobal 2-23 S pirit nayak) nayak) 00:00: - [facility] Vitamin B12 Vitamin B12 1-0 No 1000ug Common (Cyanocobal (Cyanocobal 2-23 S pirit nayak) nayak) 00:00: - [facility] Vitamin B12 Vitamin B12 2020-0 No 1000ug Common (Cyanocobal (Cyanocobal 2-23 S pirit nayak) nayak) 00:00: - [facility] Vitamin B12 Vitamin B12 2020-0 No 1000ug Common (Cyanocobal (Cyanocobal 2-23 S pirit nayak) nayak) 00:00: - [facility] Vitamin B12 Vitamin B12 2020-0 No 1000ug Common (Cyanocobal (Cyanocobal 2-23 S pirit nayak) nayak) 00:00: - [facility] Vitamin B12 Vitamin B12 2020-0 No 1000ug Common (Cyanocobal (Cyanocobal 2-23 S pirit nayak) nayak) 00:00: - [facility] Vitamin B12 Vitamin B12 2020-0 No 1000ug Common (Cyanocobal (Cyanocobal 2-23 S pirit nayak) nayak) 00:00: - [facility] Vitamin B12 Vitamin B12 2020-0 No 1000ug Common (Cyanocobal (Cyanocobal 2-23 S pirit nayak) nayak) 00:00: - [facility] Vitamin B12 Vitamin B12 2020-0 No 1000ug Common (Cyanocobal (Cyanocobal 2-23 S pirit nayak) nayak) 00:00: - [facility] Vitamin B12 Vitamin B12 2020-0 No 1000ug Common (Cyanocobal (Cyanocobal 2-23 S pirit nayak) nayak) 00:00: - [facility] Vitamin B12 Vitamin B12 1-0 No 1000ug Common (Cyanocobal (Cyanocobal 2-23 S pirit nayak) nayak) 00:00: - [facility] Vitamin B12 Vitamin B12 2021-0 No 1000ug Common (Cyanocobal (Cyanocobal 2-23 S pirit nayak) nayak) 00:00: - [facility] Vitamin B12 Vitamin B12 2021-0 No 1000ug Common (Cyanocobal (Cyanocobal 2-23 S pirit nayak) nayak) 00:00: - [facility] Vitamin B12 Vitamin B12 2021-0 No 1000ug Common (Cyanocobal (Cyanocobal 2-23 S pirit nayak) nayak) 00:00: - [facility] Vitamin B12 Vitamin B12 2021-0 No 1000ug Common (Cyanocobal (Cyanocobal 2-23 S pirit nayak) nayak) 00:00: - [facility] Vitamin B12 Vitamin B12 1-0 No 1000ug Common (Cyanocobal (Cyanocobal 2-23 S pirit nayak) nayak) 00:00: - [facility] Vitamin B12 Vitamin B12 1-0 No 1000ug Common (Cyanocobal (Cyanocobal 2-23 S pirit nayka) nayak) 00:00: - [facility] Vitamin B12 Vitamin B12 2020-0 No 1000ug Common (Cyanocobal (Cyanocobal 2-08 S pirit nayak) nayak) 00:00: - [facility] Vitamin B12 Vitamin B12 1-0 No 1000ug Common (Cyanocobal (Cyanocobal 2-08 S pirit nayak) nayak) 00:00: - [facility] Vitamin B12 Vitamin B12 1-0 No 1000ug Common (Cyanocobal (Cyanocobal 2-08 S pirit nayak) nayak) 00:00: - [facility] Vitamin B12 Vitamin B12 1-0 No 1000ug Common (Cyanocobal (Cyanocobal 2-08 S pirit nayak) nayak) 00:00: - [facility] Vitamin B12 Vitamin B12 1-0 No 1000ug Common (Cyanocobal (Cyanocobal 2-08 S pirit nayak) nayak) 00:00: - [facility] Vitamin B12 Vitamin B12 2021-0 No 1000ug Common (Cyanocobal (Cyanocobal 2-08 S pirit nayak) nayak) 00:00: - [facility] Vitamin B12 Vitamin B12 2021-0 No 1000ug Common (Cyanocobal (Cyanocobal 2-08 S pirit nayak) nayak) 00:00: - [facility] Vitamin B12 Vitamin B12 2021-0 No 1000ug Common (Cyanocobal (Cyanocobal 2-08 S pirit nayak) nayak) 00:00: - [facility] Vitamin B12 Vitamin B12 2021-0 No 1000ug Common (Cyanocobal (Cyanocobal 2-08 S pirit nayak) nayak) 00:00: - [facility] Vitamin B12 Vitamin B12 2021-0 No 1000ug Common (Cyanocobal (Cyanocobal 2-08 S pirit nayak) nayak) 00:00: - [facility] Vitamin B12 Vitamin B12 1-0 No 1000ug Common (Cyanocobal (Cyanocobal 2-08 S pirit nayak) nayak) 00:00: - [facility] Vitamin B12 Vitamin B12 1-0 No 1000ug Common (Cyanocobal (Cyanocobal 2-08 S pirit nayak) nayak) 00:00: - [facility] 00 [facility] Vitamin B12 Vitamin B12 1-0 No 1000ug Common (Cyanocobal (Cyanocobal 2-08 S pirit nayak) nayak) 00:00: - [facility] 00 [facility] Vitamin B12 Vitamin B12 1-0 No 1000ug Common (Cyanocobal (Cyanocobal 2-08 S pirit nayak) nayak) 00:00: - [facility] 00 [facility] Vitamin B12 Vitamin B12 1-0 No 1000ug Common (Cyanocobal (Cyanocobal 2-08 S pirit nayak) nayak) 00:00: - [facility] 00 [facility] Vitamin B12 Vitamin B12 2021-0 No 1000ug Common (Cyanocobal (Cyanocobal 2-08 S pirit nayak) nayak) 00:00: - [facility] 00 [facility] Vitamin B12 Vitamin B12 1-0 No 1000ug Common (Cyanocobal (Cyanocobal 2-08 S pirit nayak) nayak) 00:00: - [facility] Vitamin B12 Vitamin B12 2021-0 No 1000ug Common (Cyanocobal (Cyanocobal 2-08 S pirit nayak) nayak) 00:00: - [facility] Vitamin B12 Vitamin B12 2021-0 No 1000ug Common (Cyanocobal (Cyanocobal 2-08 S pirit nayak) nayak) 00:00: - [facility] Vitamin B12 Vitamin B12 2021-0 No 1000ug Common (Cyanocobal (Cyanocobal 2-08 S pirit nayak) nayak) 00:00: - [facility] Vitamin B12 Vitamin B12 1-0 No 1000ug Common (Cyanocobal (Cyanocobal 2-08 S pirit nayak) nayak) 00:00: - [facility] Vitamin B12 Vitamin B12 1-0 No 1000ug Common (Cyanocobal (Cyanocobal 2-08 S pirit nayak) nayak) 00:00: - [facility] Vitamin B12 Vitamin B12 2020-0 No 1000ug Common (Cyanocobal (Cyanocobal 2-08 S pirit nayak) nayak) 00:00: - [facility] Vitamin B12 Vitamin B12 2020-0 No 1000ug Common (Cyanocobal (Cyanocobal 2-08 S pirit nayak) nayak) 00:00: - [facility] Vitamin B12 Vitamin B12 2020-0 No 1000ug Common (Cyanocobal (Cyanocobal 2-08 S pirit nayak) nayak) 00:00: - [facility] Vitamin B12 Vitamin B12 2020-0 No 1000ug Common (Cyanocobal (Cyanocobal 2-08 S pirit nayak) nayak) 00:00: - [facility] Vitamin B12 Vitamin B12 2020-0 No 1000ug Common (Cyanocobal (Cyanocobal 2-08 S pirit nayak) nayak) 00:00: - [facility] Vitamin B12 Vitamin B12 1-0 No 1000ug Common (Cyanocobal (Cyanocobal 1-25 S pirit nayak) nayak) 00:00: - [facility] Vitamin B12 Vitamin B12 1-0 No 1000ug Common (Cyanocobal (Cyanocobal 1-25 S pirit nayak) nayak) 00:00: - [facility] Vitamin B12 Vitamin B12 2021-0 No 1000ug Common (Cyanocobal (Cyanocobal 1-25 S pirit nayak) nayak) 00:00: - [facility] Vitamin B12 Vitamin B12 2021-0 No 1000ug Common (Cyanocobal (Cyanocobal 1-25 S pirit nayak) nayak) 00:00: - [facility] Vitamin B12 Vitamin B12 2021-0 No 1000ug Common (Cyanocobal (Cyanocobal 1-25 S pirit nayak) nayak) 00:00: - [facility] Vitamin B12 Vitamin B12 2020-0 No 1000ug Common (Cyanocobal (Cyanocobal 1-25 S pirit nayak) nayak) 00:00: - [facility] Vitamin B12 Vitamin B12 2020-0 No 1000ug Common (Cyanocobal (Cyanocobal 1-25 S pirit nayak) nayak) 00:00: - [facility] Vitamin B12 Vitamin B12 2020-0 No 1000ug Common (Cyanocobal (Cyanocobal 1-25 S pirit nayak) nayak) 00:00: - [facility] 00 [facility] Vitamin B12 Vitamin B12 2020-0 No 1000ug Common (Cyanocobal (Cyanocobal 1-25 S pirit nayak) nayak) 00:00: - [facility] Vitamin B12 Vitamin B12 2020-0 No 1000ug Common (Cyanocobal (Cyanocobal 1-25 S pirit nayak) nayak) 00:00: - [facility] Vitamin B12 Vitamin B12 2020-0 No 1000ug Common (Cyanocobal (Cyanocobal 1-25 S pirit nayak) nayak) 00:00: - [facility] Vitamin B12 Vitamin B12 2020-0 No 1000ug Common (Cyanocobal (Cyanocobal 1-25 S pirit nayak) nayak) 00:00: - [facility] 00 [facility] Vitamin B12 Vitamin B12 2020-0 No 1000ug Common (Cyanocobal (Cyanocobal 1-25 S pirit nayak) nayak) 00:00: - [facility] Vitamin B12 Vitamin B12 2020-0 No 1000ug Common (Cyanocobal (Cyanocobal 1-25 S pirit nayak) nayak) 00:00: - [facility] Vitamin B12 Vitamin B12 1-0 No 1000ug Common (Cyanocobal (Cyanocobal 1-25 S pirit nayak) nayak) 00:00: - [facility] Vitamin B12 Vitamin B12 2021-0 No 1000ug Common (Cyanocobal (Cyanocobal 1-25 S pirit nayak) nayak) 00:00: - [facility] Vitamin B12 Vitamin B12 2020-0 No 1000ug Common (Cyanocobal (Cyanocobal 1-25 S pirit nayak) anyak) 00:00: - [facility] Vitamin B12 Vitamin B12 2020-0 No 1000ug Common (Cyanocobal (Cyanocobal 1-25 S pirit nayak) nayak) 00:00: - [facility] Vitamin B12 Vitamin B12 2020-0 No 1000ug Common (Cyanocobal (Cyanocobal 1-25 S pirit nayak) nayak) 00:00: - [facility] Vitamin B12 Vitamin B12 2020-0 No 1000ug Common (Cyanocobal (Cyanocobal 1-25 S pirit nayak) nayak) 00:00: - [facility] Vitamin B12 Vitamin B12 2020-0 No 1000ug Common (Cyanocobal (Cyanocobal 1-25 S pirit nayak) nayak) 00:00: - [facility] Vitamin B12 Vitamin B12 2020-0 No 1000ug Common (Cyanocobal (Cyanocobal 1-25 S pirit nayak) nayak) 00:00: - [facility] Vitamin B12 Vitamin B12 2020-0 No 1000ug Common (Cyanocobal (Cyanocobal 1-25 S pirit nayak) nayak) 00:00: - [facility] Vitamin B12 Vitamin B12 2020-0 No 1000ug Common (Cyanocobal (Cyanocobal 1-25 S pirit nayak) nayak) 00:00: - [facility] Vitamin B12 Vitamin B12 2020-0 No 1000ug Common (Cyanocobal (Cyanocobal 1-25 S pirit nayak) nayak) 00:00: - [facility] Vitamin B12 Vitamin B12 2020-0 No 1000ug Common (Cyanocobal (Cyanocobal 1-25 S pirit nayak) nayak) 00:00: - [facility] Vitamin B12 Vitamin B12 2020-0 No 1000ug Common (Cyanocobal (Cyanocobal 1-25 S pirit nayak) nayak) 00:00: - [facility] Vitamin B12 Vitamin B12 2020-1 No 1000ug Common (Cyanocobal (Cyanocobal 2-21 S pirit nayak) nayak) 00:00: - [facility] Vitamin B12 Vitamin B12 2020-1 No 1000ug Common (Cyanocobal (Cyanocobal 2-21 S pirit nayak) nayak) 00:00: - [facility] Vitamin B12 Vitamin B12 2020-1 No 1000ug Common (Cyanocobal (Cyanocobal 2-21 S pirit nayak) nayak) 00:00: - [facility] Vitamin B12 Vitamin B12 2020-1 No 1000ug Common (Cyanocobal (Cyanocobal 2-21 S pirit nayak) nayak) 00:00: - [facility] Vitamin B12 Vitamin B12 2020-1 No 1000ug Common (Cyanocobal (Cyanocobal 2-21 S pirit nayak) nayak) 00:00: - [facility] Vitamin B12 Vitamin B12 2020-1 No 1000ug Common (Cyanocobal (Cyanocobal 2-21 S pirit nayak) nayak) 00:00: - [facility] Vitamin B12 Vitamin B12 2020-1 No 1000ug Common (Cyanocobal (Cyanocobal 2-21 S pirit nayak) nayak) 00:00: - [facility] 00 [facility] Vitamin B12 Vitamin B12 2020-1 No 1000ug Common (Cyanocobal (Cyanocobal 2-21 S pirit nayak) nayak) 00:00: - [facility] Vitamin B12 Vitamin B12 2020-1 No 1000ug Common (Cyanocobal (Cyanocobal 2-21 S pirit nayak) nayak) 00:00: - [facility] Vitamin B12 Vitamin B12 2020-1 No 1000ug Common (Cyanocobal (Cyanocobal 2-21 S pirit nayak) nayak) 00:00: - [facility] Vitamin B12 Vitamin B12 2020-1 No 1000ug Common (Cyanocobal (Cyanocobal 2-21 S pirit nayak) nayak) 00:00: - [facility] Vitamin B12 Vitamin B12 2020-1 No 1000ug Common (Cyanocobal (Cyanocobal 2-21 S pirit nayak) nayak) 00:00: - [facility] Vitamin B12 Vitamin B12 2020-1 No 1000ug Common (Cyanocobal (Cyanocobal 2-21 S pirit nayak) nayak) 00:00: - [facility] Vitamin B12 Vitamin B12 2020-1 No 1000ug Common (Cyanocobal (Cyanocobal 2-21 S pirit nayak) nayak) 00:00: - [facility] Vitamin B12 Vitamin B12 2020-1 No 1000ug Common (Cyanocobal (Cyanocobal 2-21 S pirit nayak) nayak) 00:00: - [facility] Vitamin B12 Vitamin B12 2020-1 No 1000ug Common (Cyanocobal (Cyanocobal 2-21 S pirit nayak) nayak) 00:00: - [facility] Vitamin B12 Vitamin B12 2020-1 No 1000ug Common (Cyanocobal (Cyanocobal 2-21 S pirit nayak) nayak) 00:00: - [facility] Vitamin B12 Vitamin B12 2020-1 No 1000ug Common (Cyanocobal (Cyanocobal 2-21 S pirit nayak) nayak) 00:00: - [facility] Vitamin B12 Vitamin B12 2020-1 No 1000ug Common (Cyanocobal (Cyanocobal 2-21 S pirit nayak) nayak) 00:00: - [facility] Vitamin B12 Vitamin B12 2020-1 No 1000ug Common (Cyanocobal (Cyanocobal 2-21 S pirit nayak) nayak) 00:00: - [facility] Vitamin B12 Vitamin B12 2020-1 No 1000ug Common (Cyanocobal (Cyanocobal 2-21 S pirit nayak) nayak) 00:00: - [facility] Vitamin B12 Vitamin B12 2020-1 No 1000ug Common (Cyanocobal (Cyanocobal 2-21 S pirit nayak) nayak) 00:00: - [facility] Vitamin B12 Vitamin B12 2020-1 No 1000ug Common (Cyanocobal (Cyanocobal 2-21 S pirit nayak) nayak) 00:00: - [facility] Vitamin B12 Vitamin B12 2020-1 No 1000ug Common (Cyanocobal (Cyanocobal 2-21 S pirit nayak) nayak) 00:00: - [facility] Vitamin B12 Vitamin B12 2020-1 No 1000ug Common (Cyanocobal (Cyanocobal 2-21 S pirit nayak) nayak) 00:00: - [facility] Vitamin B12 Vitamin B12 2020-1 No 1000ug Common (Cyanocobal (Cyanocobal 2-21 S pirit nayak) nayak) 00:00: - [facility] Vitamin B12 Vitamin B12 2020-1 No 1000ug Common (Cyanocobal (Cyanocobal 2-21 S pirit nayak) nayak) 00:00: - [facility] Vitamin B12 Vitamin B12 2020-1 No 1000ug Common (Cyanocobal (Cyanocobal 1-24 S pirit nayak) nayak) 00:00: - [facility] Vitamin B12 Vitamin B12 2020-1 No 1000ug Common (Cyanocobal (Cyanocobal 1-24 S pirit anyak) nayak) 00:00: - [facility] Vitamin B12 Vitamin B12 2020-1 No 1000ug Common (Cyanocobal (Cyanocobal 1-24 S pirit nayak) nayak) 00:00: - [facility] Vitamin B12 Vitamin B12 2020-1 No 1000ug Common (Cyanocobal (Cyanocobal 1-24 S pirit nayak) nayak) 00:00: - [facility] Vitamin B12 Vitamin B12 2020-1 No 1000ug Common (Cyanocobal (Cyanocobal 1-24 S pirit nayak) nayak) 00:00: - [facility] Vitamin B12 Vitamin B12 2020-1 No 1000ug Common (Cyanocobal (Cyanocobal 1-24 S pirit nayak) nayak) 00:00: - [facility] Vitamin B12 Vitamin B12 2020-1 No 1000ug Common (Cyanocobal (Cyanocobal 1-24 S pirit nayak) nayak) 00:00: - [facility] Vitamin B12 Vitamin B12 2020-1 No 1000ug Common (Cyanocobal (Cyanocobal 1-24 S pirit nayak) nayak) 00:00: - [facility] Vitamin B12 Vitamin B12 2020-1 No 1000ug Common (Cyanocobal (Cyanocobal 1-24 S pirit nayak) nayak) 00:00: - [facility] Vitamin B12 Vitamin B12 2020-1 No 1000ug Common (Cyanocobal (Cyanocobal 1-24 S pirit nayak) nayak) 00:00: - [facility] Vitamin B12 Vitamin B12 2020-1 No 1000ug Common (Cyanocobal (Cyanocobal 1-24 S pirit nayak) nayak) 00:00: - [facility] 00 [facility] Vitamin B12 Vitamin B12 2020-1 No 1000ug Common (Cyanocobal (Cyanocobal 1-24 S pirit nayak) nayak) 00:00: - [facility] Vitamin B12 Vitamin B12 2020-1 No 1000ug Common (Cyanocobal (Cyanocobal 1-24 S pirit nayak) nayak) 00:00: - [facility] Vitamin B12 Vitamin B12 2020-1 No 1000ug Common (Cyanocobal (Cyanocobal 1-24 S pirit nayak) nayak) 00:00: - [facility] Vitamin B12 Vitamin B12 2020-1 No 1000ug Common (Cyanocobal (Cyanocobal 1-24 S pirit nayak) nayak) 00:00: - [facility] Vitamin B12 Vitamin B12 2020-1 No 1000ug Common (Cyanocobal (Cyanocobal 1-24 S pirit nayak) nayak) 00:00: - [facility] 00 [facility] Vitamin B12 Vitamin B12 2020-1 No 1000ug Common (Cyanocobal (Cyanocobal 1-24 S pirit nayak) nayak) 00:00: - [facility] 00 [facility] Vitamin B12 Vitamin B12 2020-1 No 1000ug Common (Cyanocobal (Cyanocobal 1-24 S pirit nayak) nayak) 00:00: - [facility] Vitamin B12 Vitamin B12 2020-1 No 1000ug Common (Cyanocobal (Cyanocobal 1-24 S pirit nayak) nayak) 00:00: - [facility] Vitamin B12 Vitamin B12 2020-1 No 1000ug Common (Cyanocobal (Cyanocobal 1-24 S pirit nayak) nayak) 00:00: - [facility] Vitamin B12 Vitamin B12 2020-1 No 1000ug Common (Cyanocobal (Cyanocobal 1-24 S pirit nayak) nayak) 00:00: - [facility] Vitamin B12 Vitamin B12 2020-1 No 1000ug Common (Cyanocobal (Cyanocobal 1-24 S pirit nayak) nayak) 00:00: - [facility] Vitamin B12 Vitamin B12 2020-1 No 1000ug Common (Cyanocobal (Cyanocobal 1-24 S pirit nayak) nayak) 00:00: - [facility] Vitamin B12 Vitamin B12 2020-1 No 1000ug Common (Cyanocobal (Cyanocobal 1-24 S pirit nayak) nayak) 00:00: - [facility] Vitamin B12 Vitamin B12 2020-1 No 1000ug Common (Cyanocobal (Cyanocobal 1-24 S pirit nayak) nayak) 00:00: - [facility] Vitamin B12 Vitamin B12 2020-1 No 1000ug Common (Cyanocobal (Cyanocobal 1-24 S pirit nayak) nayak) 00:00: - [facility] 00 [facility] Vitamin B12 Vitamin B12 2020-1 No 1000ug Common (Cyanocobal (Cyanocobal 1-24 S pirit nayak) nayak) 00:00: - [facility] 00 [facility] Vitamin B12 Vitamin B12 2020-1 No 1000ug Common (Cyanocobal (Cyanocobal 1-05 S pirit nayak) nyaak) 00:00: - [facility] 00 [facility] Vitamin B12 Vitamin B12 2020-1 No 1000ug Common (Cyanocobal (Cyanocobal 1-05 S pirit nayak) nayak) 00:00: - [facility] Vitamin B12 Vitamin B12 2020-1 No 1000ug Common (Cyanocobal (Cyanocobal 1-05 S pirit nayak) nayak) 00:00: - [facility] Vitamin B12 Vitamin B12 2020-1 No 1000ug Common (Cyanocobal (Cyanocobal 1-05 S pirit nayak) nayak) 00:00: - [facility] Vitamin B12 Vitamin B12 2020-1 No 1000ug Common (Cyanocobal (Cyanocobal 1-05 S pirit nayak) nayak) 00:00: - [facility] Vitamin B12 Vitamin B12 2020-1 No 1000ug Common (Cyanocobal (Cyanocobal 1-05 S pirit nayak) nayak) 00:00: - [facility] Vitamin B12 Vitamin B12 2020-1 No 1000ug Common (Cyanocobal (Cyanocobal 1-05 S pirit nayak) nayak) 00:00: - [facility] Vitamin B12 Vitamin B12 2020-1 No 1000ug Common (Cyanocobal (Cyanocobal 1-05 S pirit nayak) nayak) 00:00: - [facility] Vitamin B12 Vitamin B12 2020-1 No 1000ug Common (Cyanocobal (Cyanocobal 1-05 S pirit nayak) nayak) 00:00: - [facility] Vitamin B12 Vitamin B12 2020-1 No 1000ug Common (Cyanocobal (Cyanocobal 1-05 S pirit nayak) nayak) 00:00: - [facility] Vitamin B12 Vitamin B12 2020-1 No 1000ug Common (Cyanocobal (Cyanocobal 1-05 S pirit nayak) nayak) 00:00: - [facility] Vitamin B12 Vitamin B12 2020-1 No 1000ug Common (Cyanocobal (Cyanocobal 1-05 S pirit nayak) nayak) 00:00: - [facility] Vitamin B12 Vitamin B12 2020-1 No 1000ug Common (Cyanocobal (Cyanocobal 1-05 S pirit nayak) nayak) 00:00: - [facility] Vitamin B12 Vitamin B12 2020-1 No 1000ug Common (Cyanocobal (Cyanocobal 1-05 S pirit nayak) nayak) 00:00: - [facility] Vitamin B12 Vitamin B12 2020-1 No 1000ug Common (Cyanocobal (Cyanocobal 1-05 S pirit nayak) nayak) 00:00: - [facility] Vitamin B12 Vitamin B12 2020-1 No 1000ug Common (Cyanocobal (Cyanocobal 1-05 S pirit nayak) nayak) 00:00: - [facility] Vitamin B12 Vitamin B12 2020-1 No 1000ug Common (Cyanocobal (Cyanocobal 1-05 S pirit nayak) nayak) 00:00: - [facility] Vitamin B12 Vitamin B12 2020-1 No 1000ug Common (Cyanocobal (Cyanocobal 1-05 S pirit nayak) nayak) 00:00: - [facility] Vitamin B12 Vitamin B12 2020-1 No 1000ug Common (Cyanocobal (Cyanocobal 1-05 S pirit nayak) nayak) 00:00: - [facility] Vitamin B12 Vitamin B12 2020-1 No 1000ug Common (Cyanocobal (Cyanocobal 1-05 S pirit nayak) nayak) 00:00: - [facility] Vitamin B12 Vitamin B12 2020-1 No 1000ug Common (Cyanocobal (Cyanocobal 1-05 S pirit nayak) nayak) 00:00: - [facility] Vitamin B12 Vitamin B12 2020-1 No 1000ug Common (Cyanocobal (Cyanocobal 1-05 S pirit nayak) nayak) 00:00: - [facility] 00 [facility] Vitamin B12 Vitamin B12 2020-1 No 1000ug Common (Cyanocobal (Cyanocobal 1-05 S pirit nayak) nayak) 00:00: - [facility] 00 [facility] Vitamin B12 Vitamin B12 2020-1 No 1000ug Common (Cyanocobal (Cyanocobal 1-05 S pirit nayak) nayak) 00:00: - [facility] 00 [facility] Vitamin B12 Vitamin B12 2020-1 No 1000ug Common (Cyanocobal (Cyanocobal 1-05 S pirit nayak) nayak) 00:00: - [facility] 00 [facility] Vitamin B12 Vitamin B12 2020-1 No 1000ug Common (Cyanocobal (Cyanocobal 1-05 S pirit nayak) nayak) 00:00: - [facility] 00 [facility] Vitamin B12 Vitamin B12 2020-1 No 1000ug Common (Cyanocobal (Cyanocobal 1-05 S pirit nayak) nayak) 00:00: - [facility] Sulfamethox Sulfamethox 2020-1 2020- No 1{table BID Sulfametho azole-Trime azole-Trime -05 11-15 t} xazole-Tri thoprim thoprim 00:00: 00:00 methoprim 800-160 MG 800-160 MG 00 :00 800-160 MG Vitamin B12 Vitamin B12 2020-1 No 1000ug Common (Cyanocobal (Cyanocobal 0-22 S pirit nayak) nayak) 00:00: - [facility] 00 [facility] Vitamin B12 Vitamin B12 2020-1 No 1000ug Common (Cyanocobal (Cyanocobal 0-22 S pirit nayak) nayak) 00:00: - [facility] 00 [facility] Vitamin B12 Vitamin B12 2020-1 No 1000ug Common (Cyanocobal (Cyanocobal 0-22 S pirit nayak) nayak) 00:00: - [facility] 00 [facility] Vitamin B12 Vitamin B12 2020-1 No 1000ug Common (Cyanocobal (Cyanocobal 0-22 S pirit nayak) nayak) 00:00: - [facility] 00 [facility] Vitamin B12 Vitamin B12 2020-1 No 1000ug Common (Cyanocobal (Cyanocobal 0-22 S pirit nayak) nayak) 00:00: - [facility] 00 [facility] Vitamin B12 Vitamin B12 2020-1 No 1000ug Common (Cyanocobal (Cyanocobal 0-22 S pirit nayak) nayak) 00:00: - [facility] 00 [facility] Vitamin B12 Vitamin B12 2020-1 No 1000ug Common (Cyanocobal (Cyanocobal 0-22 S pirit nayak) nayak) 00:00: - [facility] 00 [facility] Vitamin B12 Vitamin B12 2020-1 No 1000ug Common (Cyanocobal (Cyanocobal 0-22 S pirit nayak) nayak) 00:00: - [facility] 00 [facility] Vitamin B12 Vitamin B12 2020-1 No 1000ug Common (Cyanocobal (Cyanocobal 0-22 S pirit nayak) nayak) 00:00: - [facility] 00 [facility] Vitamin B12 Vitamin B12 2020-1 No 1000ug Common (Cyanocobal (Cyanocobal 0-22 S pirit nayak) nayak) 00:00: - [facility] 00 [facility] Vitamin B12 Vitamin B12 2020-1 No 1000ug Common (Cyanocobal (Cyanocobal 0-22 S pirit nayak) nayak) 00:00: - [facility] 00 [facility] Vitamin B12 Vitamin B12 2020-1 No 1000ug Common (Cyanocobal (Cyanocobal 0-22 S pirit nayak) nayak) 00:00: - [facility] 00 [facility] Vitamin B12 Vitamin B12 2020-1 No 1000ug Common (Cyanocobal (Cyanocobal 0-22 S pirit nayak) nayak) 00:00: - [facility] 00 [facility] Vitamin B12 Vitamin B12 2020-1 No 1000ug Common (Cyanocobal (Cyanocobal 0-22 S pirit nayak) nayak) 00:00: - [facility] 00 [facility] Vitamin B12 Vitamin B12 2020-1 No 1000ug Common (Cyanocobal (Cyanocobal 0-22 S pirit nayak) nayak) 00:00: - [facility] 00 [facility] Vitamin B12 Vitamin B12 2020-1 No 1000ug Common (Cyanocobal (Cyanocobal 0-22 S pirit nayak) nayak) 00:00: - [facility] 00 [facility] Vitamin B12 Vitamin B12 2020-1 No 1000ug Common (Cyanocobal (Cyanocobal 0-22 S pirit nayak) nayak) 00:00: - [facility] 00 [facility] Vitamin B12 Vitamin B12 2020-1 No 1000ug Common (Cyanocobal (Cyanocobal 0-22 S pirit nayak) nayak) 00:00: - [facility] 00 [facility] Vitamin B12 Vitamin B12 2020-1 No 1000ug Common (Cyanocobal (Cyanocobal 0-22 S pirit nayak) nayak) 00:00: - [facility] 00 [facility] Vitamin B12 Vitamin B12 2020-1 No 1000ug Common (Cyanocobal (Cyanocobal 0-22 S pirit nayak) nayak) 00:00: - [facility] 00 [facility] Vitamin B12 Vitamin B12 2020-1 No 1000ug Common (Cyanocobal (Cyanocobal 0-22 S pirit nayak) nayak) 00:00: - [facility] 00 [facility] Vitamin B12 Vitamin B12 2020-1 No 1000ug Common (Cyanocobal (Cyanocobal 0-22 S pirit nayak) nayak) 00:00: - [facility] 00 [facility] Vitamin B12 Vitamin B12 2020-1 No 1000ug Common (Cyanocobal (Cyanocobal 0-22 S pirit nayak) nayak) 00:00: - [facility] 00 [facility] Vitamin B12 Vitamin B12 2020-1 No 1000ug Common (Cyanocobal (Cyanocobal 0-22 S pirit nayak) nayak) 00:00: - [facility] 00 [facility] Vitamin B12 Vitamin B12 2020-1 No 1000ug Common (Cyanocobal (Cyanocobal 0-22 S pirit nayak) nayak) 00:00: - [facility] 00 [facility] Vitamin B12 Vitamin B12 2020-1 No 1000ug Common (Cyanocobal (Cyanocobal 0-22 S pirit nayak) nayak) 00:00: - [facility] 00 [facility] Vitamin B12 Vitamin B12 2020-1 No 1000ug Common (Cyanocobal (Cyanocobal 0-22 S pirit nayak) nayak) 00:00: - [facility] 00 [facility] Vitamin B12 Vitamin B12 2020-1 No 1000ug Common (Cyanocobal (Cyanocobal 0-08 S pirit nayak) nayak) 00:00: - [facility] 00 [facility] Vitamin B12 Vitamin B12 2020-1 No 1000ug Common (Cyanocobal (Cyanocobal 0-08 S pirit nayak) nayak) 00:00: - [facility] 00 [facility] Vitamin B12 Vitamin B12 2020-1 No 1000ug Common (Cyanocobal (Cyanocobal 0-08 S pirit nayak) nayak) 00:00: - [facility] 00 [facility] Vitamin B12 Vitamin B12 2020-1 No 1000ug Common (Cyanocobal (Cyanocobal 0-08 S pirit nayak) nayak) 00:00: - [facility] 00 [facility] Vitamin B12 Vitamin B12 2020-1 No 1000ug Common (Cyanocobal (Cyanocobal 0-08 S pirit nayak) nayak) 00:00: - [facility] 00 [facility] Vitamin B12 Vitamin B12 2020-1 No 1000ug Common (Cyanocobal (Cyanocobal 0-08 S pirit nayak) nayak) 00:00: - [facility] 00 [facility] Vitamin B12 Vitamin B12 2020-1 No 1000ug Common (Cyanocobal (Cyanocobal 0-08 S pirit nayak) nayak) 00:00: - [facility] 00 [facility] Vitamin B12 Vitamin B12 2020-1 No 1000ug Common (Cyanocobal (Cyanocobal 0-08 S pirit nayak) nayak) 00:00: - [facility] 00 [facility] Vitamin B12 Vitamin B12 2020-1 No 1000ug Common (Cyanocobal (Cyanocobal 0-08 S pirit nayak) nayak) 00:00: - [facility] 00 [facility] Vitamin B12 Vitamin B12 2020-1 No 1000ug Common (Cyanocobal (Cyanocobal 0-08 S pirit nayak) nayak) 00:00: - [facility] 00 [facility] Vitamin B12 Vitamin B12 2020-1 No 1000ug Common (Cyanocobal (Cyanocobal 0-08 S pirit nayak) nayak) 00:00: - [facility] 00 [facility] Vitamin B12 Vitamin B12 2020-1 No 1000ug Common (Cyanocobal (Cyanocobal 0-08 S pirit nayak) nayak) 00:00: - [facility] 00 [facility] Vitamin B12 Vitamin B12 2020-1 No 1000ug Common (Cyanocobal (Cyanocobal 0-08 S pirit nayak) nayak) 00:00: - [facility] 00 [facility] Vitamin B12 Vitamin B12 2020-1 No 1000ug Common (Cyanocobal (Cyanocobal 0-08 S pirit nayak) nayak) 00:00: - [facility] 00 [facility] Vitamin B12 Vitamin B12 2020-1 No 1000ug Common (Cyanocobal (Cyanocobal 0-08 S pirit nayak) nayak) 00:00: - [facility] 00 [facility] Vitamin B12 Vitamin B12 2020-1 No 1000ug Common (Cyanocobal (Cyanocobal 0-08 S pirit nayak) nayak) 00:00: - [facility] 00 [facility] Vitamin B12 Vitamin B12 2020-1 No 1000ug Common (Cyanocobal (Cyanocobal 0-08 S pirit nayak) nayak) 00:00: - [facility] 00 [facility] Vitamin B12 Vitamin B12 2020-1 No 1000ug Common (Cyanocobal (Cyanocobal 0-08 S pirit nayak) nayak) 00:00: - [facility] 00 [facility] Vitamin B12 Vitamin B12 2020-1 No 1000ug Common (Cyanocobal (Cyanocobal 0-08 S pirit nayak) nayak) 00:00: - [facility] 00 [facility] Vitamin B12 Vitamin B12 2020-1 No 1000ug Common (Cyanocobal (Cyanocobal 0-08 S pirit nayak) nayak) 00:00: - [facility] 00 [facility] Vitamin B12 Vitamin B12 2020-1 No 1000ug Common (Cyanocobal (Cyanocobal 0-08 S pirit nayak) nayak) 00:00: - [facility] 00 [facility] Vitamin B12 Vitamin B12 2020-1 No 1000ug Common (Cyanocobal (Cyanocobal 0-08 S pirit nayak) nayak) 00:00: - [facility] 00 [facility] Vitamin B12 Vitamin B12 2020-1 No 1000ug Common (Cyanocobal (Cyanocobal 0-08 S pirit nayak) nayak) 00:00: - [facility] 00 [facility] Vitamin B12 Vitamin B12 2020-1 No 1000ug Common (Cyanocobal (Cyanocobal 0-08 S pirit nayak) nayak) 00:00: - [facility] 00 [facility] Vitamin B12 Vitamin B12 2020-1 No 1000ug Common (Cyanocobal (Cyanocobal 0-08 S pirit nayak) nayak) 00:00: - [facility] 00 [facility] Vitamin B12 Vitamin B12 2020-1 No 1000ug Common (Cyanocobal (Cyanocobal 0-08 S pirit nayak) nayak) 00:00: - [facility] 00 [facility] Vitamin B12 Vitamin B12 2020-1 No 1000ug Common (Cyanocobal (Cyanocobal 0-08 S pirit nayak) nayak) 00:00: - [facility] Azithromyci Azithromyci 2020-1 2020- No QD Azithromyc n 250 MG n 250 MG 0-06 10-11 in 250 MG 00:00: 00:00 00 :00 Azithromyci Azithromyci 2020-1 2020- No QD Azithromyc n 250 MG n 250 MG 0-06 10-11 in 250 MG 00:00: 00:00 00 :00 Vitamin B12 Vitamin B12 2020-0 No 1000ug Common (Cyanocobal (Cyanocobal 9-24 S pirit nayak) nayak) 00:00: - [facility] 00 [facility] Vitamin B12 Vitamin B12 2020-0 No 1000ug Common (Cyanocobal (Cyanocobal 9-24 S pirit nayak) nayak) 00:00: - [facility] 00 [facility] Vitamin B12 Vitamin B12 2020-0 No 1000ug Common (Cyanocobal (Cyanocobal 9-24 S pirit nayak) nayak) 00:00: - [facility] 00 [facility] Vitamin B12 Vitamin B12 2020-0 No 1000ug Common (Cyanocobal (Cyanocobal 9-24 S pirit nayak) nayak) 00:00: - [facility] 00 [facility] Vitamin B12 Vitamin B12 2020-0 No 1000ug Common (Cyanocobal (Cyanocobal 9-24 S pirit nayak) nayak) 00:00: - [facility] 00 [facility] Vitamin B12 Vitamin B12 2020-0 No 1000ug Common (Cyanocobal (Cyanocobal 9-24 S pirit nayak) nayak) 00:00: - [facility] 00 [facility] Vitamin B12 Vitamin B12 2020-0 No 1000ug Common (Cyanocobal (Cyanocobal 9-24 S pirit nayak) nayak) 00:00: - [facility] 00 [facility] Vitamin B12 Vitamin B12 2020-0 No 1000ug Common (Cyanocobal (Cyanocobal 9-24 S pirit nayak) nayak) 00:00: - [facility] 00 [facility] Vitamin B12 Vitamin B12 2020-0 No 1000ug Common (Cyanocobal (Cyanocobal 9-24 S pirit nayak) nayak) 00:00: - [facility] 00 [facility] Vitamin B12 Vitamin B12 2020-0 No 1000ug Common (Cyanocobal (Cyanocobal 9-24 S pirit nayak) nayak) 00:00: - [facility] 00 [facility] Vitamin B12 Vitamin B12 2020-0 No 1000ug Common (Cyanocobal (Cyanocobal 9-24 S pirit nayak) nayak) 00:00: - [facility] 00 [facility] Vitamin B12 Vitamin B12 2020-0 No 1000ug Common (Cyanocobal (Cyanocobal 9-24 S pirit nayak) nayak) 00:00: - [facility] 00 [facility] Vitamin B12 Vitamin B12 2020-0 No 1000ug Common (Cyanocobal (Cyanocobal 9-24 S pirit nayak) nayak) 00:00: - [facility] 00 [facility] Vitamin B12 Vitamin B12 2020-0 No 1000ug Common (Cyanocobal (Cyanocobal 9-24 S pirit nayak) nayak) 00:00: - [facility] 00 [facility] Vitamin B12 Vitamin B12 2020-0 No 1000ug Common (Cyanocobal (Cyanocobal 9-24 S pirit nayak) nayak) 00:00: - [facility] 00 [facility] Vitamin B12 Vitamin B12 2020-0 No 1000ug Common (Cyanocobal (Cyanocobal 9-24 S pirit nayak) nayak) 00:00: - [facility] 00 [facility] Vitamin B12 Vitamin B12 2020-0 No 1000ug Common (Cyanocobal (Cyanocobal 9-24 S pirit nayak) nayak) 00:00: - [facility] 00 [facility] Vitamin B12 Vitamin B12 2020-0 No 1000ug Common (Cyanocobal (Cyanocobal 9-24 S pirit nayak) nayak) 00:00: - [facility] 00 [facility] Vitamin B12 Vitamin B12 2020-0 No 1000ug Common (Cyanocobal (Cyanocobal 9-24 S pirit nayak) nayak) 00:00: - [facility] 00 [facility] Vitamin B12 Vitamin B12 2020-0 No 1000ug Common (Cyanocobal (Cyanocobal 9-24 S pirit nayak) nayak) 00:00: - [facility] 00 [facility] Vitamin B12 Vitamin B12 2020-0 No 1000ug Common (Cyanocobal (Cyanocobal 9-24 S pirit nayak) nayak) 00:00: - [facility] 00 [facility] Vitamin B12 Vitamin B12 2020-0 No 1000ug Common (Cyanocobal (Cyanocobal 9-24 S pirit nayak) nayak) 00:00: - [facility] 00 [facility] Vitamin B12 Vitamin B12 2020-0 No 1000ug Common (Cyanocobal (Cyanocobal 9-24 S pirit nyaak) nayak) 00:00: - [facility] 00 [facility] Vitamin B12 Vitamin B12 2020-0 No 1000ug Common (Cyanocobal (Cyanocobal 9-24 S pirit nayak) nayak) 00:00: - [facility] 00 [facility] Vitamin B12 Vitamin B12 2020-0 No 1000ug Common (Cyanocobal (Cyanocobal 9-24 S pirit nayak) nayak) 00:00: - [facility] 00 [facility] Vitamin B12 Vitamin B12 2020-0 No 1000ug Common (Cyanocobal (Cyanocobal 9-24 S pirit nayak) nayak) 00:00: - [facility] 00 [facility] Vitamin B12 Vitamin B12 2020-0 No 1000ug Common (Cyanocobal (Cyanocobal 9-24 S pirit nayak) nayak) 00:00: - [facility] 00 [facility] Vitamin D3 Vitamin D3 2020-0 2020- No 1{capsu Vitamin D3 85634 UNIT [id number] UNIT 03-15 12-21 le} [id number] UNIT 00:00: 00:00 00 :00 Vitamin D3 Vitamin D3 2020-0 2020- No 1{capsu Vitamin D3 10479 UNIT [id number] UNIT 03-15 12-21 le} [id number] UNIT 00:00: 00:00 00 :00 Vitamin D3 Vitamin D3 2020-0 2020- No 1{capsu Vitamin D3 06703 UNIT [id number] UNIT 03-15 12- le} [id number] UNIT 00:00: 00:00 00 :00 Vitamin D3 Vitamin D3 2020-0 2020- No 1{capsu Vitamin D3 72916 UNIT 86141 UNIT 03-15 12-21 le} [id number] UNIT 00:00: 00:00 00 :00 Vitamin D3 Vitamin D3 2020-0 2020- No 1{capsu Vitamin D3 35042 UNIT [id number] UNIT 03-15 12-21 le} [id number] UNIT 00:00: 00:00 00 :00 Scopolamine Scopolamine 2020-0 2020- No Tonio 1 patch to Common 02-18 [facility] 00:00: 00:00 behind the - [facility] 00 :[address] [facility] Scopolamine Scopolamine 2020-0 2020- No Scopolamin 1 MG/3DAYS 1 MG/3DAYS 02-18 e 1 00:00: 00:00 MG/3DAYS 00 :00 Tamsulosin Tamsulosin 2020-0 2020- No Tonio 1 capsule Common HCl HCl 02-17 [facility] 00:00: 00:00 - [facility] :00 [facility] Tamsulosin Tamsulosin 2020-0 2020- No 1{capsu QD Tamsulosin HCl 0.4 MG HCl 0.4 MG 02-17 le} HCl 0.4 MG 00:00: 00:00 00 :00 Nystatin Nystatin 2020-0 Yes Tonio 4 - 6 ml Common 5-11 [facility] 00:00: retain in - [facility] [address] [facility] swallow oxybutynin 2020-0 Yes Right 5mg Take [...] hematuria every 6 [facility] ([facility]) [facility] hours. tamsulosin 2020-0 Yes [id number] .4mg Take 1 U nivers 0.4 mg 24 3-26 capsule by ity of hr capsule 00:00: mouth [place] 00 daily. [facility] tamsulosin 2020-0 Yes [id number] .4mg Take 1 U nivers 0.4 mg 24 3-26 capsule by ity of hr capsule 00:00: mouth [place] 00 daily. [facility] tamsulosin 2020-0 Yes [id number] .4mg Take 1 U nivers 0.4 mg 24 3-26 capsule by ity of hr capsule 00:00: mouth [place] 00 daily. [facility] tamsulosin 2020-0 Yes [id number] .4mg Take 1 U nivers 0.4 mg 24 3-26 capsule by ity of hr capsule 00:00: mouth [place] 00 daily. [facility] tamsulosin 2020-0 Yes [id number] .4mg Take 1 U nivers 0.4 mg 24 3-26 capsule by ity of hr capsule 00:00: mouth [place] 00 daily. [facility] tamsulosin 2020-0 Yes [id number] .4mg Take 1 U nivers 0.4 mg 24 3-26 capsule by ity of hr capsule 00:00: mouth [place] 00 daily. [facility] tamsulosin 2020-0 Yes [id number] .4mg Take 1 U nivers 0.4 mg 24 3-26 capsule by ity of hr capsule 00:00: mouth [place] 00 daily. [facility] tamsulosin 2020-0 Yes [id number] .4mg Take 1 U nivers 0.4 mg 24 3-26 capsule by ity of hr capsule 00:00: mouth [place] 00 daily. [facility] tamsulosin 2020-0 Yes [id number] .4mg Take 1 U nivers 0.4 mg 24 3-26 capsule by ity of hr capsule 00:00: mouth [place] 00 daily. [facility] tamsulosin 2020-0 Yes [id number] .4mg Take 1 U nivers 0.4 mg 24 3-26 capsule by ity of hr capsule 00:00: mouth [place] 00 daily. [facility] tamsulosin 2020-0 Yes [id number] .4mg Take 1 U nivers 0.4 mg 24 3-26 capsule by ity of hr capsule 00:00: mouth [place] 00 daily. [facility] tamsulosin 2020-0 Yes [id number] .4mg Take 1 U nivers 0.4 mg 24 3-26 capsule by ity of hr capsule 00:00: mouth [place] 00 daily. [facility] tamsulosin 2020-0 Yes [id number] .4mg Take 1 U nivers 0.4 mg 24 3-26 capsule by ity of hr capsule 00:00: mouth [place] 00 daily. [facility] tamsulosin 2020-0 Yes [id number] .4mg Take 1 U nivers 0.4 mg 24 3-26 capsule by ity of hr capsule 00:00: mouth [place] 00 daily. [facility] tamsulosin 2020-0 Yes [id number] .4mg Take 1 U nivers 0.4 mg 24 3-26 capsule by ity of hr capsule 00:00: mouth [place] 00 daily. [facility] tamsulosin 2020-0 Yes [id number] .4mg Take 1 U nivers 0.4 mg 24 3-26 capsule by ity of hr capsule 00:00: mouth [place] 00 daily. [facility] tamsulosin 2020-0 Yes [id number] .4mg Take 1 U nivers 0.4 mg 24 3-26 capsule by ity of hr capsule 00:00: mouth [place] 00 daily. [facility] tamsulosin 2020-0 Yes [id number] .4mg Take 1 U nivers 0.4 mg 24 3-26 capsule by ity of hr capsule 00:00: mouth [place] 00 daily. [facility] tamsulosin 2020-0 Yes [id number] .4mg Take 1 U nivers 0.4 mg 24 3-26 capsule by ity of hr capsule 00:00: mouth [place] 00 daily. [facility] tamsulosin 2020-0 Yes [id number] .4mg Take 1 U nivers 0.4 mg [...] stone mouth [place] 00 daily. [facility] ketorolac 2020-0 Yes [id number] 10mg Take 1 Un [facility]ie 10 mg 3-22 tablet by ity of tablet 00:00: mouth [place] 00 every 6 Medical (six) Branch hours as needed for Pain (scale 7-10) (ONLY WHEN IN breakthrou gh PAIN, avoid use if pain tolerable) . ondansetron 2020-0 Yes [id number] 4mg Take 1 [facility] 4 mg tablet 3-22 tablet by ity of 00:00: mouth [place] 00 every 8 Medical (eight) Branch hours as needed for Nausea and Vomiting (N/V). ketorolac 2020-0 Yes [id number] 10mg Take 1 Un [facility] 10 mg 3-22 tablet by ity of tablet 00:00: mouth [place] 00 every 6 Medical (six) Branch hours as needed for Pain (scale 7-10) (ONLY WHEN IN breakthrou gh PAIN, avoid use if pain tolerable) . ondansetron 2020-0 Yes [id number] 4mg Take 1 [facility] 4 mg tablet 3-22 tablet by ity of 00:00: mouth [place] 00 every 8 Medical (eight) Branch hours as needed for Nausea and Vomiting (N/V). ketorolac 2020-0 Yes [id number] 10mg Take 1 Un [facility] 10 mg 3-22 tablet by ity of tablet 00:00: mouth [place] 00 every 6 Medical (six) Branch hours as needed for Pain (scale 7-10) (ONLY WHEN IN breakthrou gh PAIN, avoid use if pain tolerable) . ondansetron 2020-0 Yes [id number] 4mg Take 1 [facility] 4 mg tablet 3-22 tablet by ity of 00:00: mouth [place] 00 every 8 Medical (eight) Branch hours as needed for Nausea and Vomiting (N/V). ketorolac 2020-0 Yes [id number] 10mg Take 1 Un [facility] 10 mg 3-22 tablet by ity of tablet 00:00: mouth [place] 00 every 6 Medical (six) Branch hours as needed for Pain (scale 7-10) (ONLY WHEN IN breakthrou gh PAIN, avoid use if pain tolerable) . ondansetron 2020-0 Yes [id number] 4mg Take 1 [facility] 4 mg tablet 3-22 tablet by ity of 00:00: mouth [place] 00 every 8 Medical (eight) Branch hours as needed for Nausea and Vomiting (N/V). ketorolac 2020-0 Yes [id number] 10mg Take 1 Un [facility] 10 mg 3-22 tablet by ity of tablet 00:00: mouth [place] 00 every 6 Medical (six) Branch hours as needed for Pain (scale 7-10) (ONLY WHEN IN breakthrou gh PAIN, avoid use if pain tolerable) . ondansetron 2020-0 Yes [id number] 4mg Take 1 [facility] 4 mg tablet 3-22 tablet by ity of 00:00: mouth [place] 00 every 8 Medical (eight) Branch hours as needed for Nausea and Vomiting (N/V). ketorolac 2020-0 Yes [id number] 10mg Take 1 Un [facility]ie 10 mg 3-22 tablet by ity of tablet 00:00: mouth [place] 00 every 6 Medical (six) Branch hours as needed for Pain (scale 7-10) (ONLY WHEN IN breakthrou gh PAIN, avoid use if pain tolerable) . ondansetron 2020-0 Yes [id number] 4mg Take 1 [facility] 4 mg tablet 3-22 tablet by ity of 00:00: mouth [place] 00 every 8 Medical (eight) Branch hours as needed for Nausea and Vomiting (N/V). ketorolac 2020-0 Yes [id number] 10mg Take 1 Un [facility] 10 mg 3-22 tablet by ity of tablet 00:00: mouth [place] 00 every 6 Medical (six) Branch hours as needed for Pain (scale 7-10) (ONLY WHEN IN breakthrou gh PAIN, avoid use if pain tolerable) . ondansetron 2020-0 Yes [id number] 4mg Take 1 [facility] 4 mg tablet 3-22 tablet by ity of 00:00: mouth [place] 00 every 8 Medical (eight) Branch hours as needed for Nausea and Vomiting (N/V). ketorolac 2020-0 Yes [id number] 10mg Take 1 [facility] 10 mg 3-22 tablet by ity of tablet 00:00: mouth [place] 00 every 6 Medical (six) Branch hours as needed for Pain (scale 7-10) (ONLY WHEN IN breakthrou gh PAIN, avoid use if pain tolerable) . ondansetron 2020-0 Yes [id number] 4mg Take 1 [facility] 4 mg tablet 3-22 tablet by ity of 00:00: mouth [place] 00 every 8 Medical (eight) Branch hours as needed for Nausea and Vomiting (N/V). ketorolac 2020-0 Yes [id number] 10mg Take 1 [facility] 10 mg 3-22 tablet by ity of tablet 00:00: mouth [place] 00 every 6 Medical (six) Branch hours as needed for Pain (scale 7-10) (ONLY WHEN IN breakthrou gh PAIN, avoid use if pain tolerable) . ondansetron 2020-0 Yes [id number] 4mg Take 1 [facility] 4 mg tablet 3-22 tablet by ity of 00:00: mouth [place] 00 every 8 Medical (eight) Branch hours as needed for Nausea and Vomiting (N/V). ketorolac 2020-0 Yes [id number] 10mg Take 1 Un [facility] 10 mg 3-22 tablet by ity of tablet 00:00: mouth [place] 00 every 6 Medical (six) Branch hours as needed for Pain (scale 7-10) (ONLY WHEN IN breakthrou gh PAIN, avoid use if pain tolerable) . ondansetron 2020-0 Yes [id number] 4mg Take 1 [facility] 4 mg tablet 3-22 tablet by ity of 00:00: mouth [place] 00 every 8 Medical (eight) Branch hours as needed for Nausea and Vomiting (N/V). ketorolac 2020-0 Yes [id number] 10mg Take 1 Un aj[facility]ie 10 mg 3-22 tablet by ity of tablet 00:00: mouth [place] 00 every 6 Medical (six) Branch hours as needed for Pain (scale 7-10) (ONLY WHEN IN breakthrou gh PAIN, avoid use if pain tolerable) . ondansetron 2020-0 Yes [id number] 4mg Take 1 [facility] 4 mg tablet 3-22 tablet by ity of 00:00: mouth [place] 00 every 8 Medical (eight) Branch hours as needed for Nausea and Vomiting (N/V). ketorolac 2020-0 Yes [id number] 10mg Take 1 Un [facility] 10 mg 3-22 tablet by ity of tablet 00:00: mouth [place] 00 every 6 Medical (six) Branch hours as needed for Pain (scale 7-10) (ONLY WHEN IN breakthrou gh PAIN, avoid use if pain tolerable) . ondansetron 2020-0 Yes [id number] 4mg Take 1 [facility] 4 mg tablet 3-22 tablet by ity of 00:00: mouth [place] 00 every 8 Medical (eight) Branch hours as needed for Nausea and Vomiting (N/V). ketorolac 2020-0 Yes [id number] 10mg Take 1 [facility] 10 mg 3-22 tablet by ity of tablet 00:00: mouth [place] 00 every 6 Medical (six) Branch hours as needed for Pain (scale 7-10) (ONLY WHEN IN breakthrou gh PAIN, avoid use if pain tolerable) . ondansetron 2020-0 Yes [id number] 4mg Take 1 [facility] 4 mg tablet 3-22 tablet by ity of 00:00: mouth [place] 00 every 8 Medical (eight) Branch hours as needed for Nausea and Vomiting (N/V). ketorolac 2020-0 Yes [id number] 10mg Take 1 Un [facility] 10 mg 3-22 tablet by ity of tablet 00:00: mouth [place] 00 every 6 Medical (six) Branch hours as needed for Pain (scale 7-10) (ONLY WHEN IN breakthrou gh PAIN, avoid use if pain tolerable) . ondansetron 2020-0 Yes [id number] 4mg Take 1 [facility] 4 mg tablet 3-22 tablet by ity of 00:00: mouth [place] 00 every 8 Medical (eight) Branch hours as needed for Nausea and Vomiting (N/V). ketorolac 2020-0 Yes [id number] 10mg Take 1 [facility] 10 mg 3-22 tablet by ity of tablet 00:00: mouth [place] 00 every 6 Medical (six) Branch hours as needed for Pain (scale 7-10) (ONLY WHEN IN breakthrou gh PAIN, avoid use if pain tolerable) . ondansetron 2020-0 Yes [id number] 4mg Take 1 [facility] 4 mg tablet 3-22 tablet by ity of 00:00: mouth [place] 00 every 8 Medical (eight) Branch hours as needed for Nausea and Vomiting (N/V). ketorolac 2020-0 Yes [id number] 10mg Take 1 Un [facility] 10 mg 3-22 tablet by ity of tablet 00:00: mouth [place] 00 every 6 Medical (six) Branch hours as needed for Pain (scale 7-10) (ONLY WHEN IN breakthrou gh PAIN, avoid use if pain tolerable) . ondansetron 2020-0 Yes [id number] 4mg Take 1 [facility] 4 mg tablet 3-22 tablet by ity of 00:00: mouth [place] 00 every 8 Medical (eight) Branch hours as needed for Nausea and Vomiting (N/V). ketorolac 2020-0 Yes [id number] 10mg Take 1 Un [facility] 10 mg 3-22 tablet by ity of tablet 00:00: mouth [place] 00 every 6 Medical (six) Branch hours as needed for Pain (scale 7-10) (ONLY WHEN IN breakthrou gh PAIN, avoid use if pain tolerable) . ondansetron 2020-0 Yes [id number] 4mg Take 1 [facility] 4 mg tablet 3-22 tablet by ity of 00:00: mouth [place] 00 every 8 Medical (eight) Branch hours as needed for Nausea and Vomiting (N/V). ketorolac 2020-0 Yes [id number] 10mg Take 1 Un [facility] 10 mg 3-22 tablet by ity of tablet 00:00: mouth [place] 00 every 6 Medical (six) Branch hours as needed for Pain (scale 7-10) (ONLY WHEN IN breakthrou gh PAIN, avoid use if pain tolerable) . ondansetron 2020-0 Yes [id number] 4mg Take 1 [facility] 4 mg tablet 3-22 tablet by ity of 00:00: mouth [place] 00 every 8 Medical (eight) Branch hours as needed for Nausea and Vomiting (N/V). ketorolac 2020-0 Yes [id number] 10mg Take 1 Un [facility] 10 mg 3-22 tablet by ity of tablet 00:00: mouth [place] 00 every 6 Medical (six) Branch hours as needed for Pain (scale 7-10) (ONLY WHEN IN breakthrou gh PAIN, avoid use if pain tolerable) . ondansetron 2020-0 Yes [id number] 4mg Take 1 [facility] 4 mg tablet 3-22 tablet by ity of 00:00: mouth [place] 00 every 8 Medical (eight) Branch hours as needed for Nausea and Vomiting (N/V). ketorolac 2020-0 Yes [id number] 10mg Take 1 Un [facility]ie 10 mg 3-22 tablet by ity of tablet 00:00: mouth [place] 00 every 6 Medical (six) Branch hours as needed for Pain (scale 7-10) (ONLY WHEN IN breakthrou gh PAIN, avoid use if pain tolerable) . ondansetron 2020-0 Yes [id number] 4mg Take 1 [facility] 4 mg tablet [...] as needed for Nausea and Vomiting (N/V). Kenalog Kenalog 2020-0 No 40mg Common (Triamcinol (Triamcinol 2-11 S pirit one) one) 00:00: - [facility] 00 [facility] Kenalog Kenalog 2020-0 No 40mg Common (Triamcinol (Triamcinol 2-11 S pirit one) one) 00:00: - [facility] 00 [facility] Kenalog Kenalog 2020-0 No 40mg Common (Triamcinol (Triamcinol 2-11 S pirit one) one) 00:00: - [facility] 00 [facility] Kenalog Kenalog 2020-0 No 40mg Common (Triamcinol (Triamcinol 2-11 S pirit one) one) 00:00: - [facility] 00 [facility] Kenalog Kenalog 2020-0 No 40mg Common (Triamcinol (Triamcinol 2-11 S pirit one) one) 00:00: - [facility] 00 [facility] Kenalog Kenalog 2020-0 No 40mg Common (Triamcinol (Triamcinol 2-11 S pirit one) one) 00:00: - [facility] 00 [facility] Kenalog Kenalog 2020-0 No 40mg Common (Triamcinol (Triamcinol 2-11 S pirit one) one) 00:00: - [facility] 00 [facility] Kenalog Kenalog 2020-0 No 40mg Common (Triamcinol (Triamcinol 2-11 S pirit one) one) 00:00: - [facility] 00 [facility] Kenalog Kenalog 2020-0 No 40mg Common (Triamcinol (Triamcinol 2-11 S pirit one) one) 00:00: - [facility] 00 [facility] Kenalog Kenalog 2020-0 No 40mg Common (Triamcinol (Triamcinol 2-11 S pirit one) one) 00:00: - [facility] 00 [facility] Kenalog Kenalog 2020-0 No 40mg Common (Triamcinol (Triamcinol 2-11 S pirit one) one) 00:00: - [facility] 00 [facility] Kenalog Kenalog 2020-0 No 40mg Common (Triamcinol (Triamcinol 2-11 S pirit one) one) 00:00: - [facility] 00 [facility] Kenalog Kenalog 2020-0 No 40mg Common (Triamcinol (Triamcinol 2-11 S pirit one) one) 00:00: - [facility] 00 [facility] Kenalog Kenalog 2020-0 No 40mg Common (Triamcinol (Triamcinol 2-11 S pirit one) one) 00:00: - [facility] 00 [facility] Kenalog Kenalog 2020-0 No 40mg Common (Triamcinol (Triamcinol 2-11 S pirit one) one) 00:00: - [facility] 00 [facility] Kenalog Kenalog 2020-0 No 40mg Common (Triamcinol (Triamcinol 2-11 S pirit one) one) 00:00: - [facility] 00 [facility] Kenalog Kenalog 2020-0 No 40mg Common (Triamcinol (Triamcinol 2-11 S pirit one) one) 00:00: - [facility] 00 [facility] Kenalog Kenalog 2020-0 No 40mg Common (Triamcinol (Triamcinol 2-11 S pirit one) one) 00:00: - [facility] 00 [facility] Kenalog Kenalog 2020-0 No 40mg Common (Triamcinol (Triamcinol 2-11 S pirit one) one) 00:00: - [facility] 00 [facility] Kenalog Kenalog 2020-0 No 40mg Common (Triamcinol (Triamcinol 2-11 S pirit one) one) 00:00: - [facility] 00 [facility] Kenalog Kenalog 2020-0 No 40mg Common (Triamcinol (Triamcinol 2-11 S pirit one) one) 00:00: - [facility] 00 [facility] Kenalog Kenalog 2020-0 No 40mg Common (Triamcinol (Triamcinol 2-11 S pirit one) one) 00:00: - [facility] 00 [facility] Kenalog Kenalog 2020-0 No 40mg Common (Triamcinol (Triamcinol 2-11 S pirit one) one) 00:00: - [facility] 00 [facility] Kenalog Kenalog 2020-0 No 40mg Common (Triamcinol (Triamcinol 2-11 S pirit one) one) 00:00: - [facility] 00 [facility] Kenalog Kenalog 2020-0 No 40mg Common (Triamcinol (Triamcinol 2-11 S pirit one) one) 00:00: - [facility] 00 [facility] Kenalog Kenalog 2020-0 No 40mg Common (Triamcinol (Triamcinol 2-11 S pirit one) one) 00:00: - [facility] 00 [facility] Kenalog Kenalog 2020-0 No 40mg Common (Triamcinol (Triamcinol 2-11 S pirit one) one) 00:00: - [facility] 00 [facility] Kenalog Kenalog 2020-0 No 40mg Common (Triamcinol (Triamcinol 1-14 S pirit one) one) 00:00: - [facility] 00 [facility] Kenalog Kenalog 2020-0 No 40mg Common (Triamcinol (Triamcinol 1-14 S pirit one) one) 00:00: - [facility] 00 [facility] Kenalog Kenalog 2020-0 No 40mg Common (Triamcinol (Triamcinol 1-14 S pirit one) one) 00:00: - [facility] 00 [facility] Kenalog Kenalog 2020-0 No 40mg Common (Triamcinol (Triamcinol 1-14 S pirit one) one) 00:00: - [facility] 00 [facility] Kenalog Kenalog 2020-0 No 40mg Common (Triamcinol (Triamcinol 1-14 S pirit one) one) 00:00: - [facility] 00 [facility] Kenalog Kenalog 2020-0 No 40mg Common (Triamcinol (Triamcinol 1-14 S pirit one) one) 00:00: - [facility] 00 [facility] Kenalog Kenalog 2020-0 No 40mg Common (Triamcinol (Triamcinol 1-14 S pirit one) one) 00:00: - [facility] 00 [facility] Kenalog Kenalog 2020-0 No 40mg Common (Triamcinol (Triamcinol 1-14 S pirit one) one) 00:00: - [facility] 00 [facility] Kenalog Kenalog 2020-0 No 40mg Common (Triamcinol (Triamcinol 1-14 S pirit one) one) 00:00: - [facility] 00 [facility] Kenalog Kenalog 2020-0 No 40mg Common (Triamcinol (Triamcinol 1-14 S pirit one) one) 00:00: - [facility] 00 [facility] Kenalog Kenalog 2020-0 No 40mg Common (Triamcinol (Triamcinol 1-14 S pirit one) one) 00:00: - [facility] 00 [facility] Kenalog Kenalog 2020-0 No 40mg Common (Triamcinol (Triamcinol 1-14 S pirit one) one) 00:00: - [facility] 00 [facility] Kenalog Kenalog 2020-0 No 40mg Common (Triamcinol (Triamcinol 1-14 S pirit one) one) 00:00: - [facility] 00 [facility] Kenalog Kenalog 2020-0 No 40mg Common (Triamcinol (Triamcinol 1-14 S pirit one) one) 00:00: - [facility] 00 [facility] Kenalog Kenalog 2020-0 No 40mg Common (Triamcinol (Triamcinol 1-14 S pirit one) one) 00:00: - [facility] 00 [facility] Kenalog Kenalog 2020-0 No 40mg Common (Triamcinol (Triamcinol 1-14 S pirit one) one) 00:00: - [facility] 00 [facility] Kenalog Kenalog 2020-0 No 40mg Common (Triamcinol (Triamcinol 1-14 S pirit one) one) 00:00: - [facility] 00 [facility] Kenalog Kenalog 2020-0 No 40mg Common (Triamcinol (Triamcinol 1-14 S pirit one) one) 00:00: - [facility] 00 [facility] Kenalog Kenalog 2020-0 No 40mg Common (Triamcinol (Triamcinol 1-14 S pirit one) one) 00:00: - [facility] 00 [facility] Kenalog Kenalog 2020-0 No 40mg Common (Triamcinol (Triamcinol 1-14 S pirit one) one) 00:00: - [facility] 00 [facility] Kenalog Kenalog 2020-0 No 40mg Common (Triamcinol (Triamcinol 1-14 S pirit one) one) 00:00: - [facility] 00 [facility] Kenalog Kenalog 2020-0 No 40mg Common (Triamcinol (Triamcinol 1-14 S pirit one) one) 00:00: - [facility] 00 [facility] Kenalog Kenalog 2020-0 No 40mg Common (Triamcinol (Triamcinol 1-14 S pirit one) one) 00:00: - [facility] 00 [facility] Kenalog Kenalog 2020-0 No 40mg Common (Triamcinol (Triamcinol 1-14 S pirit one) one) 00:00: - [facility] 00 [facility] Kenalog Kenalog 2020-0 No 40mg Common (Triamcinol (Triamcinol 1-14 S pirit one) one) 00:00: - [facility] 00 [facility] Kenalog Kenalog 2020-0 No 40mg Common (Triamcinol (Triamcinol 1-14 S pirit one) one) 00:00: - [facility] 00 [facility] Kenalog Kenalog 2020-0 No 40mg Common (Triamcinol (Triamcinol 1-14 S pirit one) one) 00:00: - [facility] furosemide 2020-0 Yes 40mg Take 40 mg U nivers 40 mg 1-03 by mouth ity of tablet 00:00: daily. [place] [facility] furosemide 2020-0 Yes 40mg Take 40 mg U nivers 40 mg 1-03 by mouth ity of tablet 00:00: daily. [place] [facility] furosemide 2020-0 Yes 40mg Take 40 mg U nivers 40 mg 1-03 by mouth ity of tablet 00:00: daily. [address] furosemide 2020-0 Yes 40mg Take 40 mg U nivers 40 mg 1-03 by mouth ity of tablet 00:00: daily. [place] [facility] furosemide 2020-0 Yes 40mg Take 40 mg U nivers 40 mg 1-03 by mouth ity of tablet 00:00: daily. [place] [facility] furosemide 2020-0 Yes 40mg Take 40 mg U nivers 40 mg 1-03 by mouth ity of tablet 00:00: daily. [address] furosemide 2020-0 Yes 40mg Take 40 mg U nivers 40 mg 1-03 by mouth ity of tablet 00:00: daily. [address] furosemide 2020-0 Yes 40mg Take 40 mg U nivers 40 mg 1-03 by mouth ity of tablet 00:00: daily. [address] furosemide 2020-0 Yes 40mg Take 40 mg U nivers 40 mg 1-03 by mouth ity of tablet 00:00: daily. [address] furosemide 2020-0 Yes 40mg Take 40 mg U nivers 40 mg 1-03 by mouth ity of tablet 00:00: daily. [address] furosemide 2020-0 Yes 40mg Take 40 mg U nivers 40 mg 1-03 by mouth ity of tablet 00:00: daily. [address] furosemide 2020-0 Yes 40mg Take 40 mg U nivers 40 mg 1-03 by mouth ity of tablet 00:00: daily. [address] furosemide 2020-0 Yes 40mg Take 40 mg U nivers 40 mg 1-03 by mouth ity of tablet 00:00: daily. [address] furosemide 2020-0 Yes 40mg Take 40 mg U nivers 40 mg 1-03 by mouth ity of tablet 00:00: daily. [place] [facility] furosemide 2020-0 Yes 40mg Take 40 mg U nivers 40 mg 1-03 by mouth ity of tablet 00:00: daily. [place] [facility] furosemide 2020-0 Yes 40mg Take 40 mg U nivers 40 mg 1-03 by mouth ity of tablet 00:00: daily. [place] [facility] furosemide 2020-0 Yes 40mg Take 40 mg U nivers 40 mg 1-03 by mouth ity of tablet 00:00: daily. [place] [facility] furosemide 2020-0 Yes 40mg Take 40 mg U nivers 40 mg 1-03 by mouth ity of tablet 00:00: daily. [place] [facility] furosemide 2020-0 Yes 40mg Take 40 mg U nivers 40 mg 1-03 by mouth ity of tablet 00:00: daily. [address] Branch furosemide 2020-0 Yes 40mg Take 40 mg U nivers 40 mg 1-03 by mouth ity of tablet 00:00: daily. [place] [facility] furosemide 2020-0 Yes 40mg Take 40 mg U nivers 40 mg 1-03 by mouth ity of tablet 00:00: daily. [address] Branch furosemide 2020-0 Yes 40mg Take 40 mg U nivers 40 mg 1-03 by mouth ity of tablet 00:00: daily. [address] Kenalog 2019- No 40mg Common (Triamcinol (Triamcinol 1-25 S pirit one) one) 00:00: - [facility] Kenalog 2019- No 40mg Common (Triamcinol (Triamcinol 1-25 S pirit one) one) 00:00: - [facility] Kenalog 2019-1 No 40mg Common (Triamcinol (Triamcinol 1-25 S pirit one) one) 00:00: - [facility] Kenalog 2019- No 40mg Common (Triamcinol (Triamcinol 1-25 S pirit one) one) 00:00: - [facility] Kenalog 2019-1 No 40mg Common (Triamcinol (Triamcinol 1-25 S pirit one) one) 00:00: - [facility] 00 [facility] [place] Kenalog 2019- No 40mg Common (Triamcinol (Triamcinol 1-25 S pirit one) one) 00:00: - [facility] 00 [facility] [place] 2019- No 40mg Common (Triamcinol (Triamcinol 1-25 S pirit one) one) 00:00: - [facility] 00 [facility] [place] 2019- No 40mg Common (Triamcinol (Triamcinol 1-25 S pirit one) one) 00:00: - [facility] 00 [facility] [place] 2019- No 40mg Common (Triamcinol (Triamcinol 1-25 S pirit one) one) 00:00: - [facility] 00 [facility] [place] 2018- No 40mg Common (Triamcinol (Triamcinol 1-25 S pirit one) one) 00:00: - [facility] 00 [facility] [place] 2019- No 40mg Common (Triamcinol (Triamcinol 1-25 S pirit one) one) 00:00: - [facility] 00 [facility] [place] 2019- No 40mg Common (Triamcinol (Triamcinol 1-25 S pirit one) one) 00:00: - [facility] 00 [facility] [place] 2019- No 40mg Common (Triamcinol (Triamcinol 1-25 S pirit one) one) 00:00: - [facility] 00 [facility] [place] 2019- No 40mg Common (Triamcinol (Triamcinol 1-25 S pirit one) one) 00:00: - [facility] 00 [facility] [place] 2019- No 40mg Common (Triamcinol (Triamcinol 1-25 S pirit one) one) 00:00: - [facility] 00 [facility] [place] 2019- No 40mg Common (Triamcinol (Triamcinol 1-25 S pirit one) one) 00:00: - [facility] 00 [facility] [place] 2019- No 40mg Common (Triamcinol (Triamcinol 1-25 S pirit one) one) 00:00: - [facility] 00 [facility] [place] 2019- No 40mg Common (Triamcinol (Triamcinol 1-25 S pirit one) one) 00:00: - [facility] 00 [facility] [place] 2019- No 40mg Common (Triamcinol (Triamcinol 1-25 S pirit one) one) 00:00: - [facility] 00 [facility] [place] 2018- No 40mg Common (Triamcinol (Triamcinol 1-25 S pirit one) one) 00:00: - [facility] 00 [facility] [place] 2019- No 40mg Common (Triamcinol (Triamcinol 1-25 S pirit one) one) 00:00: - CHI 00 [facility] Haylee [place] 2019- No 40mg Common (Triamcinol (Triamcinol 1-25 S pirit one) one) 00:00: - CHI 00 [facility] [place]lee [place] 2019- No 40mg Common (Triamcinol (Triamcinol 1-25 S pirit one) one) 00:00: - CHI 00 [facility] Haylee [place] 2018- No 40mg Common (Triamcinol (Triamcinol 1-25 S pirit one) one) 00:00: - CHI 00 [facility] Haylee [place] 2018- No 40mg Common (Triamcinol (Triamcinol 1-25 S pirit one) one) 00:00: - CHI 00 [facility] Haylee [place] 2018- No 40mg Common (Triamcinol (Triamcinol 1-25 S pirit one) one) 00:00: - CHI 00 [facility] Haylee [place] 2019- No 40mg Common (Triamcinol (Triamcinol 1-25 S pirit one) one) 00:00: - CHI 00 [facility] Cipro 500 2018- No 1mg mg tablet - 00:00: 00 Flagyl 500 2018- No 1mg mg tablet -21 00:00: 00 Diflucan 2018-06 No 1mg 150 mg 1-21 tablet 00:00: 00 Plavix 75 2018-06 No 1mg mg tablet 1-18 00:00: 00 atenolol 2018-06 No 1mg 100 mg 1-18 tablet 00:00: 00 psyllium-callaway 2018-06 Yes [id number] 1{packe Take 1 [facility] crose 0-01 t} Packet by ity of (METAMUCIL, 00:00: mouth 3 [place] as SUGAR,) 00 (three) Medical powder times Branch daily. docusate 2018-06 Yes [id number] 100mg Take 1 Un jackie (COLACE) 0-01 capsule by ity o f 100 mg 00:00: mouth 2 [place] capsule 00 (two) Medical times Branch daily. psyllium-callaway 2018-06 Yes [id number] 1{packe Take 1 [facility] crose 0-01 t} Packet by ity of (METAMUCIL, 00:00: mouth 3 [place] SUGAR,) 00 (three) Medical powder times Branch daily. docusate 2018-06 Yes [id number] 100mg Take 1 Un jackie (COLACE) 0-01 capsule by ity o f 100 mg 00:00: mouth 2 [place] capsule 00 (two) Medical times Branch daily. psyllium-callaway 2018-06 Yes [id number] 1{packe Take 1 [facility] crose 0-01 t} Packet by ity of (METAMUCIL, 00:00: mouth 3 [place]GAR,) 00 (three) Medical powder times Branch daily. docusate 2018-06 Yes [id number] 100mg Take 1 Un jackie (COLACE) 0-01 capsule by ity o f 100 mg 00:00: mouth 2 [place] capsule 00 (two) Medical times Branch daily. psyllium-callaway 2018-06 Yes [id number] 1{packe Take 1 [facility] crose 0-01 t} Packet by ity of (METAMUCIL, 00:00: mouth 3 [place],) 00 (three) Medical powder times Branch daily. docusate 2018-06 Yes [id number] 100mg Take 1 Un jackie (COLACE) 0-01 capsule by ity o f 100 mg 00:00: mouth 2 [place] capsule 00 (two) Medical times Branch daily. psyllium-callaway 2018-06 Yes [id number] 1{packe Take 1 [facility] crose 0-01 t} Packet by ity of (METAMUCIL, 00:00: mouth 3 [place],) 00 (three) Medical powder times Branch daily. docusate 2018-06 Yes [id number] 100mg Take 1 Un jackie (COLACE) 0-01 capsule by ity o f 100 mg 00:00: mouth 2 [place] capsule 00 (two) Medical times Branch daily. psyllium-callaway 2018-06 Yes [id number] 1{packe Take 1 [facility] crose 0-01 t} Packet by ity of (METAMUCIL, 00:00: mouth 3 [place]GAR,) 00 (three) Medical powder times Branch daily. docusate 2018-06 Yes [id number] 100mg Take 1 Un jackie (COLACE) 0-01 capsule by ity o f 100 mg 00:00: mouth 2 [place] capsule 00 (two) Medical times Branch daily. psyllium-callaway 2018-06 Yes [id number] 1{packe Take 1 [facility] crose 0-01 t} Packet by ity of (METAMUCIL, 00:00: mouth 3 [place]GAR,) 00 (three) Medical powder times Branch daily. docusate 2018-06 Yes [id number] 100mg Take 1 Un jackie (COLACE) 0-01 capsule by ity o f 100 mg 00:00: mouth 2 [place] capsule 00 (two) Medical times Branch daily. psyllium-callaway 2018-06 Yes [id number] 1{packe Take 1 [facility] crose 0-01 t} Packet by ity of (METAMUCIL, 00:00: mouth 3 [place]GAR,) 00 (three) Medical powder times Branch daily. docusate 2018-06 Yes [id number] 100mg Take 1 Un jackie (COLACE) 0-01 capsule by ity o f 100 mg 00:00: mouth 2 [place] capsule 00 (two) Medical times Branch daily. psyllium-callaway 2018-06 Yes [id number] 1{packe Take 1 [facility] crose 0-01 t} Packet by ity of (METAMUCIL, 00:00: mouth 3 [place] SUGAR,) 00 (three) Medical powder times Branch daily. docusate 2018-06 Yes [id number] 100mg Take 1 Un jackie (COLACE) 0-01 capsule by ity o f 100 mg 00:00: mouth 2 [place] capsule 00 (two) Medical times Branch daily. psyllium-callaway 2018-06 Yes [id number] 1{packe Take 1 [facility] crose 0-01 t} Packet by ity of (METAMUCIL, 00:00: mouth 3 [place],) 00 (three) Medical powder times Branch daily. docusate 2018-06 Yes [id number] 100mg Take 1 Un jackie (COLACE) 0-01 capsule by ity o f 100 mg 00:00: mouth 2 [place] capsule 00 (two) Medical times Branch daily. psyllium-callaway 2018-06 Yes [id number] 1{packe Take 1 [facility] crose 0-01 t} Packet by ity of (METAMUCIL, 00:00: mouth 3 [place]GAR,) 00 (three) Medical powder times Branch daily. docusate 2018-06 Yes [id number] 100mg Take 1 Un jackie (COLACE) 0-01 capsule by ity o f 100 mg 00:00: mouth 2 [place] capsule 00 (two) Medical times Branch daily. psyllium-callaway 2018-06 Yes [id number] 1{packe Take 1 [facility] crose 0-01 t} Packet by ity of (METAMUCIL, 00:00: mouth 3 [place]GAR,) 00 (three) Medical powder times Branch daily. docusate 2018-06 Yes [id number] 100mg Take 1 Un jackie (COLACE) 0-01 capsule by ity o f 100 mg 00:00: mouth 2 [place] capsule 00 (two) Medical times Branch daily. psyllium-callaway 2018-06 Yes [id number] 1{packe Take 1 [facility] crose 0-01 t} Packet by ity of (METAMUCIL, 00:00: mouth 3 [place],) 00 (three) Medical powder times Branch daily. docusate 2018-06 Yes [id number] 100mg Take 1 Un jackie (COLACE) 0-01 capsule by ity o f 100 mg 00:00: mouth 2 [place] capsule 00 (two) Medical times Branch daily. psyllium-callaway 2018-06 Yes [id number] 1{packe Take 1 [facility] crose 0-01 t} Packet by ity of (METAMUCIL, 00:00: mouth 3 [place]GAR,) 00 (three) Medical powder times Branch daily. docusate 2018-06 Yes [id number] 100mg Take 1 Un jackie (COLACE) 0-01 capsule by ity o f 100 mg 00:00: mouth 2 [place] capsule 00 (two) Medical times Branch daily. psyllium-callaway 2018-06 Yes [id number] 1{packe Take 1 [facility] crose 0-01 t} Packet by ity of (METAMUCIL, 00:00: mouth 3 [place]GAR,) 00 (three) Medical powder times Branch daily. docusate 2018-06 Yes [id number] 100mg Take 1 Un jackie (COLACE) 0-01 capsule by ity o f 100 mg 00:00: mouth 2 [place] capsule 00 (two) Medical times Branch daily. psyllium-callaway 2018-06 Yes [id number] 1{packe Take 1 [facility] crose 0-01 t} Packet by ity of (METAMUCIL, 00:00: mouth 3 [place]GAR,) 00 (three) Medical powder times Branch daily. docusate 2018-06 Yes [id number] 100mg Take 1 Un jackie (COLACE) 0-01 capsule by ity o f 100 mg 00:00: mouth 2 [place] capsule 00 (two) Medical times Branch daily. psyllium-callaway 2018-06 Yes [id number] 1{packe Take 1 [facility] crose 0-01 t} Packet by ity of (METAMUCIL, 00:00: mouth 3 [place],) 00 (three) Medical powder times Branch daily. docusate 2018-06 Yes [id number] 100mg Take 1 Un jackie (COLACE) 0-01 capsule by ity o f 100 mg 00:00: mouth 2 [place] capsule 00 (two) Medical times Branch daily. psyllium-callaway 2018-06 Yes [id number] 1{packe Take 1 [facility] crose 0-01 t} Packet by ity of (METAMUCIL, 00:00: mouth 3 [place]GAR,) 00 (three) Medical powder times Branch daily. docusate 2018-06 Yes [id number] 100mg Take 1 Un jackie (COLACE) 0-01 capsule by ity o f 100 mg 00:00: mouth 2 [place] capsule 00 (two) Medical times Branch daily. psyllium-callaway 2018-06 Yes [id number] 1{packe Take 1 [facility] crose 0-01 t} Packet by ity of (METAMUCIL, 00:00: mouth 3 [place] SUGAR,) 00 (three) Medical powder times Branch daily. docusate 2018-06 Yes [id number] 100mg Take 1 Un jackie (COLACE) 0-01 capsule by ity o f 100 mg 00:00: mouth 2 [place] capsule 00 (two) Medical times Branch daily. psyllium-callaway 2018-06 Yes [id number] 1{packe Take 1 [facility] crose 0-01 t} Packet by ity of (METAMUCIL, 00:00: mouth 3 [place] SUGAR,) 00 (three) Medical powder times Branch daily. docusate 2018-06 Yes [id number] 100mg Take 1 Un jackie (COLACE) 0-01 [...] al type times Branch daily. LEVOTHYROXI Yes [id number] TAKE 1 Univers NE 50 mcg 5-07 TABLET BY ity o f tablet 00:00: MOUTH [place] 00 EVERY Medical MORNING. Branch LEVOTHYROXI 2019-0 Yes [id number] TAKE 1 Univers NE 50 mcg 5-07 TABLET BY ity o f tablet 00:00: MOUTH [place] 00 EVERY Medical MORNING. Branch LEVOTHYROXI 2019-0 Yes [id number] TAKE 1 Univers NE 50 mcg 5-07 TABLET BY ity o f tablet 00:00: MOUTH [place] 00 EVERY Medical MORNING. Branch LEVOTHYROXI 2019-0 Yes [id number] TAKE 1 [facility] NE 50 mcg 5-07 TABLET BY ity o f tablet 00:00: MOUTH [place] 00 EVERY Medical MORNING. Branch LEVOTHYROXI 2019-0 Yes [id number] TAKE 1 [facility] NE 50 mcg 5-07 TABLET BY ity o f tablet 00:00: MOUTH [place] 00 EVERY Medical MORNING. Branch LEVOTHYROXI 2019-0 Yes [id number] TAKE 1 [facility] NE 50 mcg 5-07 TABLET BY ity o f tablet 00:00: MOUTH [place] 00 EVERY Medical MORNING. Branch LEVOTHYROXI 2019-0 Yes [id number] TAKE 1 [facility] NE 50 mcg 5-07 TABLET BY ity o f tablet 00:00: MOUTH [place] 00 EVERY Medical MORNING. Branch LEVOTHYROXI 2019-0 Yes [id number] TAKE 1 [facility] NE 50 mcg 5-07 TABLET BY ity o f tablet 00:00: MOUTH [place] 00 EVERY Medical MORNING. Branch LEVOTHYROXI 2019-0 Yes [id number] TAKE 1 [facility] NE 50 mcg 5-07 TABLET BY ity o f tablet 00:00: MOUTH [place] 00 EVERY Medical MORNING. Branch LEVOTHYROXI 2019-0 Yes [id number] TAKE 1 [facility] NE 50 mcg 5-07 TABLET BY ity o f tablet 00:00: MOUTH [place] 00 EVERY Medical MORNING. Branch LEVOTHYROXI 2019-0 Yes [id number] TAKE 1 [facility] NE 50 mcg 5-07 TABLET BY ity o f tablet 00:00: MOUTH [place] 00 EVERY Medical MORNING. Branch LEVOTHYROXI 2019-0 Yes [id number] TAKE 1 [facility] NE 50 mcg 5-07 TABLET BY ity o f tablet 00:00: MOUTH [place] 00 EVERY Medical MORNING. Branch LEVOTHYROXI 2019-0 Yes [id number] TAKE 1 [facility] NE 50 mcg 5-07 TABLET BY ity o f tablet 00:00: MOUTH [place] 00 EVERY Medical MORNING. Branch LEVOTHYROXI 2019-0 Yes [id number] TAKE 1 [facility] NE 50 mcg 5-07 TABLET BY ity o f tablet 00:00: MOUTH [place] 00 EVERY Medical MORNING. Branch LEVOTHYROXI 2019-0 Yes [id number] TAKE 1 [facility] NE 50 mcg 5-07 TABLET BY ity o f tablet 00:00: MOUTH [place] 00 EVERY Medical MORNING. Branch LEVOTHYROXI 2019-0 Yes [id number] TAKE 1 [facility] NE 50 mcg 5-07 TABLET BY ity o f tablet 00:00: MOUTH [place] 00 EVERY Medical MORNING. Branch LEVOTHYROXI 2019-0 Yes [id number] TAKE 1 [facility] NE 50 mcg 5-07 TABLET BY ity o f tablet 00:00: MOUTH [place] 00 EVERY Medical MORNING. Branch LEVOTHYROXI 2019-0 Yes [id number] TAKE 1 [facility] NE 50 mcg 5-07 TABLET BY ity o f tablet 00:00: MOUTH [place] 00 EVERY Medical MORNING. Branch LEVOTHYROXI 2019-0 Yes [id number] TAKE 1 [facility] NE 50 mcg 5-07 TABLET BY ity o f tablet 00:00: MOUTH [place] 00 EVERY Medical MORNING. Branch LEVOTHYROXI 2019-0 Yes [id number] TAKE 1 [facility] NE 50 mcg 5-07 TABLET BY ity o f tablet 00:00: MOUTH [place] 00 EVERY Medical MORNING. Branch LEVOTHYROXI [id number] Yes Hypothyroid TAKE 1 [facility] NE 50 mcg 5-07 ism TABLET BY ity o f tablet 00:00: (acquired[place] EVERY Medical MORNING. Branch LEVOTHYROXI 2019-0 Yes Hypothyroid TAKE 1 [facility] NE 50 mcg 5-07 ism TABLET BY ity o f tablet 00:00: (acquired[place]TH [place] 00 EVERY Medical MORNING. [place] Haylee Le[place] 2017-06 No 40mg Common (Triamcinol (Triamcinol 2-05 S pirit one) one) 00:00: - CHI 00 [facility] Kenalog 2017-06 No 40mg Common (Triamcinol (Triamcinol 2-05 S pirit one) one) 00:00: - CHI 00 [facility] Kenalog 2017- No 40mg Common (Triamcinol (Triamcinol 2-05 S pirit one) one) 00:00: - CHI 00 [facility] Haylee Yooalog 2017-06 No 40mg Common (Triamcinol (Triamcinol 2-05 S pirit one) one) 00:00: - CHI 00 [facility] [place]lee [place] 2018- No 40mg Common (Triamcinol (Triamcinol 2-05 S pirit one) one) 00:00: - CHI 00 [facility] Haylee [place] 2018- No 40mg Common (Triamcinol (Triamcinol 2-05 S pirit one) one) 00:00: - CHI 00 [facility] [place]lee [place] 2018- No 40mg Common (Triamcinol (Triamcinol 2-05 S pirit one) one) 00:00: - CHI 00 [facility] Haylee [place] 2018- No 40mg Common (Triamcinol (Triamcinol 2-05 S pirit one) one) 00:00: - CHI 00 [facility] [place]lee [place] 2017- No 40mg Common (Triamcinol (Triamcinol 2-05 S pirit one) one) 00:00: - CHI 00 [facility] Haylee [place] 2017- No 40mg Common (Triamcinol (Triamcinol 2-05 S pirit one) one) 00:00: - CHI 00 [facility] [place]lee [place] 2018- No 40mg Common (Triamcinol (Triamcinol 2-05 S pirit one) one) 00:00: - CHI 00 [facility] [place]lee [place] 2018- No 40mg Common (Triamcinol (Triamcinol 2-05 S pirit one) one) 00:00: - CHI 00 [facility] [place]lee [place] 2018- No 40mg Common (Triamcinol (Triamcinol 2-05 S pirit one) one) 00:00: - CHI 00 [facility] [place] 2018- No 40mg Common (Triamcinol (Triamcinol 2-05 S pirit one) one) 00:00: - CHI 00 [facility] [place]lee [place] 2018- No 40mg Common (Triamcinol (Triamcinol 2-05 S pirit one) one) 00:00: - CHI 00 [facility] [place]lee [place] 2018- No 40mg Common (Triamcinol (Triamcinol 2-05 S pirit one) one) 00:00: - CHI 00 [facility] Haylee [place] 2018- No 40mg Common (Triamcinol (Triamcinol 2-05 S pirit one) one) 00:00: - CHI 00 [facility] Haylee Kenal[place] 2018- No 40mg Common (Triamcinol (Triamcinol 2-05 S pirit one) one) 00:00: - CHI 00 [facility] [place]lee [place] 2018- No 40mg Common (Triamcinol (Triamcinol 2-05 S pirit one) one) 00:00: - CHI 00 [facility] [place] 2018- No 40mg Common (Triamcinol (Triamcinol 2-05 S pirit one) one) 00:00: - CHI 00 [facility] [place] 2018- No 40mg Common (Triamcinol (Triamcinol 2-05 S pirit one) one) 00:00: - CHI 00 [facility] [place] 2018- No 40mg Common (Triamcinol (Triamcinol 2-05 S pirit one) one) 00:00: - CHI 00 [facility] [place] 2018- No 40mg Common (Triamcinol (Triamcinol 2-05 S pirit one) one) 00:00: - CHI 00 [facility] [place] 2018- No 40mg Common (Triamcinol (Triamcinol 2-05 S pirit one) one) 00:00: - CHI 00 [facility] [place] 2018- No 40mg Common (Triamcinol (Triamcinol 2-05 S pirit one) one) 00:00: - CHI 00 [facility] [place] 2018- No 40mg Common (Triamcinol (Triamcinol 2-05 S pirit one) one) 00:00: - CHI 00 [facility] [place] 2018-1 No 40mg Common (Triamcinol (Triamcinol 2-05 S pirit one) one) 00:00: - CHI 00 [facility] [place] 2017- No 40mg Common (Triamcinol (Triamcinol 0-03 S pirit one) one) 00:00: - CHI 00 [facility] [place] 2017- No 40mg Common (Triamcinol (Triamcinol 0-03 S pirit one) one) 00:00: - CHI 00 [facility] [place] 2017- No 40mg Common (Triamcinol (Triamcinol 0-03 S pirit one) one) 00:00: - CHI 00 [facility] [place] 2017- No 40mg Common (Triamcinol (Triamcinol 0-03 S pirit one) one) 00:00: - CHI 00 [facility] Hay[place] 2017- No 40mg Common (Triamcinol (Triamcinol 0-03 S pirit one) one) 00:00: - CHI 00 [facility] [place] 2017- No 40mg Common (Triamcinol (Triamcinol 0-03 S pirit one) one) 00:00: - CHI 00 [facility] [place] 2017- No 40mg Common (Triamcinol (Triamcinol 0-03 S pirit one) one) 00:00: - CHI 00 [facility] [place]lee [place] 2017- No 40mg Common (Triamcinol (Triamcinol 0-03 S pirit one) one) 00:00: - CHI 00 [facility] [place] 2017- No 40mg Common (Triamcinol (Triamcinol 0-03 S pirit one) one) 00:00: - CHI 00 [facility] [place] 2017- No 40mg Common (Triamcinol (Triamcinol 0-03 S pirit one) one) 00:00: - CHI 00 [facility] [place] 2018- No 40mg Common (Triamcinol (Triamcinol 0-03 S pirit one) one) 00:00: - CHI 00 [facility] [place] 2017- No 40mg Common (Triamcinol (Triamcinol 0-03 S pirit one) one) 00:00: - CHI 00 [facility] Haylee Kenalog 2018- No 40mg Common (Triamcinol (Triamcinol 0-03 S pirit one) one) 00:00: - CHI 00 [facility] [place] 2017- No 40mg Common (Triamcinol (Triamcinol 0-03 S pirit one) one) 00:00: - CHI 00 [facility] [place] 2017- No 40mg Common (Triamcinol (Triamcinol 0-03 S pirit one) one) 00:00: - CHI 00 [facility] [place] 2017- No 40mg Common (Triamcinol (Triamcinol 0-03 S pirit one) one) 00:00: - CHI 00 [facility] [place] 2017- No 40mg Common (Triamcinol (Triamcinol 0-03 S pirit one) one) 00:00: - CHI 00 [facility] [place] 2017- No 40mg Common (Triamcinol (Triamcinol 0-03 S pirit one) one) 00:00: - CHI 00 [facility] [place] 2017- No 40mg Common (Triamcinol (Triamcinol 0-03 S pirit one) one) 00:00: - CHI 00 [facility] [place] 2017- No 40mg Common (Triamcinol (Triamcinol 0-03 S pirit one) one) 00:00: - CHI 00 [facility] [place] 2018- No 40mg Common (Triamcinol (Triamcinol 0-03 S pirit one) one) 00:00: - CHI 00 [facility] [place] 2018- No 40mg Common (Triamcinol (Triamcinol 0-03 S pirit one) one) 00:00: - CHI 00 [facility] [place]lee Kenalog 2018- No 40mg Common (Triamcinol (Triamcinol 0-03 S pirit one) one) 00:00: - CHI 00 [facility] [place] 2018-1 No 40mg Common (Triamcinol (Triamcinol 0-03 S pirit one) one) 00:00: - CHI 00 [facility] [place] Kenalog 2018-1 No 40mg Common (Triamcinol (Triamcinol 0-03 S pirit one) one) 00:00: - CHI 00 [facility] [place] Kenalog 2018-1 No 40mg Common (Triamcinol (Triamcinol 0-03 S pirit one) one) 00:00: - CHI 00 [facility] [place] Kenalog 2018-1 No 40mg Common (Triamcinol (Triamcinol 0-03 S pirit one) one) 00:00: - CHI 00 [facility] [place] Kenalog 2018-0 No 40mg Common (Triamcinol (Triamcinol 5-15 S pirit one) one) 00:00: - CHI 00 [facility] [place] Kenalog 2018-0 No 40mg Common (Triamcinol (Triamcinol 5-15 S pirit one) one) 00:00: - CHI 00 [facility] [place] Kenalog 2018-0 No 40mg Common (Triamcinol (Triamcinol 5-15 S pirit one) one) 00:00: - CHI 00 [facility] [place] Kenalog 2018-0 No 40mg Common (Triamcinol (Triamcinol 5-15 S pirit one) one) 00:00: - CHI 00 [facility] [place] Kenalog 2018-0 No 40mg Common (Triamcinol (Triamcinol 5-15 S pirit one) one) 00:00: - CHI 00 [facility] Ken[place] Kenalog 2018-0 No 40mg Common (Triamcinol (Triamcinol 5-15 S pirit one) one) 00:00: - CHI 00 [facility] [place] Kenalog 2018-0 No 40mg Common (Triamcinol (Triamcinol 5-15 S pirit one) one) 00:00: - CHI 00 [facility] [place] Kenalog 2018-0 No 40mg Common (Triamcinol (Triamcinol 5-15 S pirit one) one) 00:00: - CHI 00 [facility] [place] Kenalog 2018-0 No 40mg Common (Triamcinol (Triamcinol 5-15 S pirit one) one) 00:00: - CHI 00 [facility] [place] Kenalog 2018-0 No 40mg Common (Triamcinol (Triamcinol 5-15 S pirit one) one) 00:00: - CHI 00 [facility] Ken[place] Kenalog 2018-0 No 40mg Common (Triamcinol (Triamcinol 5-15 S pirit one) one) 00:00: - CHI 00 [facility] Ken[place] Kenalog 2018-0 No 40mg Common (Triamcinol (Triamcinol 5-15 S pirit one) one) 00:00: - CHI 00 [facility] [place] Kenalog 2018-0 No 40mg Common (Triamcinol (Triamcinol 5-15 S pirit one) one) 00:00: - CHI 00 [facility] [place] Kenalog 2018-0 No 40mg Common (Triamcinol (Triamcinol 5-15 S pirit one) one) 00:00: - CHI 00 [facility] [place] Kenalog 2018-0 No 40mg Common (Triamcinol (Triamcinol 5-15 S pirit one) one) 00:00: - CHI 00 [facility] Ken[place] Kenalog 2018-0 No 40mg Common (Triamcinol (Triamcinol 5-15 S pirit one) one) 00:00: - CHI 00 [facility] [place] Kenalog 2018-0 No 40mg Common (Triamcinol (Triamcinol 5-15 S pirit one) one) 00:00: - CHI 00 [facility] [place] Kenalog 2018-0 No 40mg Common (Triamcinol (Triamcinol 5-15 S pirit one) one) 00:00: - CHI 00 [facility] [place] Kenalog 2018-0 No 40mg Common (Triamcinol (Triamcinol 5-15 S pirit one) one) 00:00: - CHI 00 [facility] [place] Kenalog 2018-0 No 40mg Common (Triamcinol (Triamcinol 5-15 S pirit one) one) 00:00: - CHI 00 [facility] [place] Kenalog 2018-0 No 40mg Common (Triamcinol (Triamcinol 5-15 S pirit one) one) 00:00: - CHI 00 [facility] [place] Kenalog 2018-0 No 40mg Common (Triamcinol (Triamcinol 5-15 S pirit one) one) 00:00: - CHI 00 [facility] [place] 2018-0 No 40mg Common (Triamcinol (Triamcinol 5-15 S pirit one) one) 00:00: - CHI 00 [facility] [place] 2018-0 No 40mg Common (Triamcinol (Triamcinol 5-15 S pirit one) one) 00:00: - CHI 00 [facility] 2018-0 No 40mg Common (Triamcinol (Triamcinol 5-15 S pirit one) one) 00:00: - CHI 00 [facility] [place] 2018-0 No 40mg Common (Triamcinol (Triamcinol 5-15 S pirit one) one) 00:00: - CHI 00 [facility] [place] 2018-0 No 40mg Common (Triamcinol (Triamcinol 5-15 S pirit one) one) 00:00: - CHI 00 [facility] cyanocobala 2016-06 Yes 1000ug 1 mL by [...] Me dical mcg/mL month. Branch injection cyanocobala 2016- Yes 1000ug 1 mL by U nivers min 0-05 Intramuscu ity of (VITAMIN 00:00: lar route [place] B-12) 1,000 00 once every Me dical mcg/mL month. Branch injection nortriptyli 2017-0 Yes 25mg Take 1 [facility] ers ne 25 mg 8-17 capsule by ity o f capsule 00:00: mouth at [place] 00 bedtime. Medical Branch nortriptyli 2017-0 Yes 25mg Take 1 Univ ers ne 25 mg 8-17 capsule by ity o f capsule 00:00: mouth at [place] 00 bedtime. Medical Branch nortriptyli 2016-0 Yes 25mg Take 1 Univ ers ne 25 mg 8-17 capsule by ity o f capsule 00:00: mouth at [place] 00 bedtime. Medical Branch nortriptyli 2016-0 Yes 25mg Take 1 Univ ers ne 25 mg 8-17 capsule by ity o f capsule 00:00: mouth at [place] 00 bedtime. Medical Branch nortriptyli 2016-0 Yes 25mg Take 1 Univ ers ne 25 mg 8-17 capsule by ity o f capsule 00:00: mouth at [place] 00 bedtime. Medical Branch nortriptyli 2016-0 Yes 25mg Take 1 Univ ers ne 25 mg 8-17 capsule by ity o f capsule 00:00: mouth at [place] 00 bedtime. Medical Branch nortriptyli 2017-0 Yes 25mg Take 1 Univ ers ne 25 mg 8-17 capsule by ity o f capsule 00:00: mouth at [place] 00 bedtime. Medical Branch nortriptyli 2017-0 Yes 25mg Take 1 Univ ers ne 25 mg 8-17 capsule by ity o f capsule 00:00: mouth at [place] 00 bedtime. [facility] nortriptyli 2017-0 Yes 25mg Take 1 Univ ers ne 25 mg 8-17 capsule by ity o f capsule 00:00: mouth at [place] 00 bedtime. [facility] Branch nortriptyli 2017-0 Yes 25mg Take 1 Univ ers ne 25 mg 8-17 capsule by ity o f capsule 00:00: mouth at [place] 00 bedtime. [facility] Branch nortriptyli 2017-0 Yes 25mg Take 1 Univ ers ne 25 mg 8-17 capsule by ity o f capsule 00:00: mouth at [place] 00 bedtime. [facility] Branch nortriptyli 20170 Yes 25mg Take 1 Univ ers ne 25 mg 8-17 capsule by ity o f capsule 00:00: mouth at [place] 00 bedtime. [facility] Branch nortriptyli 0 Yes 25mg Take 1 Univ ers ne 25 mg 8-17 capsule by ity o f capsule 00:00: mouth at [place] 00 bedtime. [facility] Branch nortriptyli 20170 Yes 25mg Take 1 Univ ers ne 25 mg 8-17 capsule by ity o f capsule 00:00: mouth at [place] 00 bedtime. [facility] Branch nortriptyli 0 Yes 25mg Take 1 Univ ers ne 25 mg 8-17 capsule by ity o f capsule 00:00: mouth at [place] bedtime. [facility] Branch nortriptyli 0 Yes 25mg Take 1 Univ ers ne 25 mg 8-17 capsule by ity o f capsule 00:00: mouth at [place] [address] bedtime. Medical Branch nortriptyli 0 Yes 25mg Take 1 Univ ers ne 25 mg 8-17 capsule by ity o f capsule 00:00: mouth at [place] bedtime. [facility] Branch nortriptyli 0 Yes 25mg Take 1 Univ ers ne 25 mg 8-17 capsule by ity o f capsule 00:00: mouth at [place] [address] bedtime. Medical Branch nortriptyli 0 Yes 25mg Take 1 Univ ers ne 25 mg 8-17 capsule by ity o f capsule 00:00: mouth at [place] [address] bedtime. Medical Branch nortriptyli 0 Yes 25mg Take 1 Univ ers ne 25 mg 8-17 capsule by ity o f capsule 00:00: mouth at [place] bedtime. [facility] Branch nortriptyli 0 Yes 25mg Take 1 Univ ers ne 25 mg 8-17 capsule by ity o f capsule 00:00: mouth at [place] 00 bedtime. Medical Branch nortriptyli 0 Yes 25mg Take 1 Univ ers ne 25 mg 8-17 capsule by ity o f capsule 00:00: mouth at [place] [address] bedtime. Medical Branch clotrimazol 20170 No 1% e 1 % -08 topical 00:00: cream 00 terbinafine 2017-0 No 1mg HCl 250 mg 5-08 tablet 00:00: 00 isosorbide 2017-0 Yes 30mg Take 30 mg U nivers mononitrate 4-20 by mouth ity of 30 mg 24 hr 00:00: as needed. [place] tablet 00 [facility] isosorbide 2016-0 Yes 30mg Take 30 mg U nivers mononitrate 4-20 by mouth ity of 30 mg 24 hr 00:00: as needed. [place] tablet 00 [facility] isosorbide 2016-0 Yes 30mg Take 30 mg U nivers mononitrate 4-20 by mouth ity of 30 mg 24 hr 00:00: as needed. [place] tablet 00 [facility] isosorbide 2016-0 Yes 30mg Take 30 mg U nivers mononitrate 4-20 by mouth ity of 30 mg 24 hr 00:00: as needed. [place] tablet 00 [facility] isosorbide 2016-0 Yes 30mg Take 30 mg U nivers mononitrate 4-20 by mouth ity of 30 mg 24 hr 00:00: as needed. [place] tablet 00 [facility] isosorbide 2016-0 Yes 30mg Take 30 mg U nivers mononitrate 4-20 by mouth ity of 30 mg 24 hr 00:00: as needed. [place] tablet 00 [facility] isosorbide 2016-0 Yes 30mg Take 30 mg U nivers mononitrate 4-20 by mouth ity of 30 mg 24 hr 00:00: as needed. [place] tablet 00 [facility] isosorbide 2016-0 Yes 30mg Take 30 mg U nivers mononitrate 4-20 by mouth ity of 30 mg 24 hr 00:00: as needed. [place] tablet 00 [facility] isosorbide 2016-0 Yes 30mg Take 30 mg U nivers mononitrate 4-20 by mouth ity of 30 mg 24 hr 00:00: as needed. [place] tablet 00 [facility] isosorbide 2016-0 Yes 30mg Take 30 mg U nivers mononitrate 4-20 by mouth ity of 30 mg 24 hr 00:00: as needed. [place] tablet 00 [facility] isosorbide 2016-0 Yes 30mg Take 30 mg U nivers mononitrate 4-20 by mouth ity of 30 mg 24 hr 00:00: as needed. [place] tablet 00 [facility] isosorbide Yes 30mg Take 30 mg U nivers mononitrate 4-20 by mouth ity of 30 mg 24 hr 00:00: as needed. [place] tablet 00 Medical Branch isosorbide Yes 30mg Take 30 mg U nivers mononitrate 4-20 by mouth ity of 30 mg 24 hr 00:00: as needed. [place] tablet 00 [facility] Branch isosorbide Yes 30mg Take 30 mg U nivers mononitrate 4-20 by mouth ity of 30 mg 24 hr 00:00: as needed. [place] tablet 00 [facility] Branch isosorbide Yes 30mg Take 30 mg U nivers mononitrate 4-20 by mouth ity of 30 mg 24 hr 00:00: as needed. [place] tablet 00 [facility] Branch isosorbide Yes 30mg Take 30 mg U nivers mononitrate 4-20 by mouth ity of 30 mg 24 hr 00:00: as needed. [place] tablet 00 [facility] isosorbide Yes 30mg Take 30 mg U nivers mononitrate 4-20 by mouth ity of 30 mg 24 hr 00:00: as needed. [place] tablet 00 [facility] isosorbide Yes 30mg Take 30 mg U nivers mononitrate 4-20 by mouth ity of 30 mg 24 hr 00:00: as needed. [place] tablet 00 [facility] isosorbide Yes 30mg Take 30 mg U nivers mononitrate 4-20 by mouth ity of 30 mg 24 hr 00:00: as needed. [place] tablet 00 [facility] Branch isosorbide Yes 30mg Take 30 mg U nivers mononitrate 4-20 by mouth ity of 30 mg 24 hr 00:00: as needed. [place] tablet 00 [facility] Branch isosorbide Yes 30mg Take 30 mg U nivers mononitrate 4-20 by mouth ity of 30 mg 24 hr 00:00: as needed. [place] tablet 00 [facility] Branch isosorbide Yes 30mg Take 30 mg U nivers mononitrate 4-20 by mouth ity of 30 mg 24 hr 00:00: as needed. [place] tablet 00 [facility] Branch HYDROcodone Yes 1{tbl} Take 1 Un jackie -acetaminop 4-18 tablet by ity of hen 10-325 00:00: mouth as [place] mg tablet 00 needed. Medical Branch HYDROcodone 2017-0 Yes 1{tbl} Take 1 Un jackie -acetaminop 4-18 tablet by ity of hen 10-325 00:00: mouth as [place] mg tablet 00 needed. Medical Branch HYDROcodone 2017-0 Yes 1{tbl} Take 1 Un jackie -acetaminop 4-18 tablet by ity of hen 10-325 00:00: mouth as [place] mg tablet 00 needed. Medical Branch HYDROcodone 2017-0 Yes 1{tbl} Take 1 Un jackie -acetaminop 4-18 tablet by ity of hen 10-325 00:00: mouth as [place] mg tablet 00 needed. Medical Branch HYDROcodone 2017-0 Yes 1{tbl} Take 1 Un jackie -acetaminop 4-18 tablet by ity of hen 10-325 00:00: mouth [place] mg tablet 00 every 8 Medical (eight) Branch hours as needed. HYDROcodone 2017-0 Yes 1{tbl} Take 1 Un jackie -acetaminop 4-18 tablet by ity of hen 10-325 00:00: mouth [place] mg tablet 00 every 8 Medical (eight) Branch hours as needed. HYDROcodone 2017-0 Yes 1{tbl} Take 1 Un jackie -acetaminop 4-18 tablet by ity of hen 10-325 00:00: mouth [place] mg tablet 00 every 8 Medical (eight) Branch hours as needed. HYDROcodone 2017-0 Yes 1{tbl} Take 1 Un jackie -acetaminop 4-18 tablet by ity of hen 10-325 00:00: mouth [place] mg tablet 00 every 8 Medical (eight) Branch hours as needed. HYDROcodone 2017-0 Yes 1{tbl} Take 1 Un jackie -acetaminop 4-18 tablet by ity of hen 10-325 00:00: mouth [place] mg tablet 00 every 8 Medical (eight) Branch hours as needed. HYDROcodone 2017-0 Yes 1{tbl} Take 1 Un jackie -acetaminop 4-18 tablet by ity of hen 10-325 00:00: mouth [place] mg tablet 00 every 8 Medical (eight) Branch hours as needed. HYDROcodone 2017-0 Yes 1{tbl} Take 1 Un jackie -acetaminop 4-18 tablet by ity of hen 10-325 00:00: mouth [place] mg tablet 00 every 8 Medical (eight) Branch hours as needed. HYDROcodone 2017-0 Yes 1{tbl} Take 1 Un jackie -acetaminop 4-18 tablet by ity of hen 10-325 00:00: mouth [place] mg tablet 00 every 8 Medical (eight) Branch hours as needed. HYDROcodone 2017-0 Yes 1{tbl} Take 1 Un jackie -acetaminop 4-18 tablet by ity of hen 10-325 00:00: mouth [place] mg tablet 00 every 8 Medical (eight) Branch hours as needed. HYDROcodone 2017-0 Yes 1{tbl} Take 1 Un jackie -acetaminop 4-18 tablet by ity of hen 10-325 00:00: mouth [place] mg tablet 00 every 8 Medical (eight) Branch hours as needed. HYDROcodone 2017-0 Yes 1{tbl} Take 1 Un jackie -acetaminop 4-18 tablet by ity of hen 10-325 00:00: mouth [place] mg tablet 00 every 8 Medical (eight) Branch hours as needed. HYDROcodone 2017-0 Yes 1{tbl} Take 1 Un jackie -acetaminop 4-18 tablet by ity of hen 10-325 00:00: mouth [place] mg tablet 00 every 8 Medical (eight) Branch hours as needed. HYDROcodone 2017-0 Yes 1{tbl} Take 1 Un jackie -acetaminop 4-18 tablet by ity of hen 10-325 00:00: mouth [place] mg tablet 00 every 8 Medical (eight) Branch hours as needed. HYDROcodone 2017-0 Yes 1{tbl} Take 1 Un jackie -acetaminop 4-18 tablet by ity of hen 10-325 00:00: mouth [place] mg tablet 00 every 8 Medical (eight) Branch hours as needed. HYDROcodone 2017-0 Yes 1{tbl} Take 1 Un jackie -acetaminop 4-18 tablet by ity of hen 10-325 00:00: mouth [place] mg tablet 00 every 8 Medical (eight) Branch hours as needed. HYDROcodone 2017-0 Yes 1{tbl} Take 1 Un jackie -acetaminop 4-18 tablet by ity of hen 10-325 00:00: mouth [place] mg tablet 00 every 8 Medical (eight) Branch hours as needed. HYDROcodone 2017-0 Yes 1{tbl} Take 1 Un jackie -acetaminop 4-18 tablet by ity of hen 10-325 00:00: mouth as [place] as mg tablet 00 needed. Medical Branch HYDROcodone 2017-0 Yes 1{tbl} Take 1 Un jackie -acetaminop 4-18 tablet by ity of hen 10-325 00:00: mouth as [place] mg tablet 00 needed. Medical Branch VITAMIN D2 2016- Yes [id number] Take Unive rs 50,000 unit 4-17 50,000 ity of capsule 00:00: Units by [address] weekly. Branch VITAMIN D2 Yes [id number] Take Unive rs 50,000 unit 4-17 50,000 ity of capsule 00:00: Units by [address] weekly. Branch VITAMIN D2 Yes [id number] Take Unive rs 50,000 unit 4-17 50,000 ity of capsule 00:00: Units by [address] weekly. Branch VITAMIN D2 2016- Yes [id number] Take Unive rs 50,000 unit 4-17 50,000 ity of capsule 00:00: Units by [address] weekly. Branch VITAMIN D2 Yes [id number] Take Unive rs 50,000 unit 4-17 50,000 ity of capsule 00:00: Units by [address] weekly. Branch VITAMIN D2 Yes [id number] Take Unive rs 50,000 unit 4-17 50,000 ity of capsule 00:00: Units by [address] weekly. Branch VITAMIN D2 2016- Yes [id number] Take Unive rs 50,000 unit 4-17 50,000 ity of capsule 00:00: Units by [address] weekly. Branch VITAMIN D2 Yes [id number] Take Unive rs 50,000 unit 4-17 50,000 ity of capsule 00:00: Units by [address] weekly. Branch VITAMIN D2 2016- Yes [id number] Take Unive rs 50,000 unit 4-17 50,000 ity of capsule 00:00: Units by [address] weekly. Branch VITAMIN D2 Yes [id number] Take Unive rs 50,000 unit 4-17 50,000 ity of capsule 00:00: Units by [address] weekly. Branch VITAMIN D2 2016- Yes [id number] Take Unive rs 50,000 unit 4-17 50,000 ity of capsule 00:00: Units by [address] weekly[address] [place] VITAMIN D2 Yes [id number] Take Unive rs 50,000 unit 4-17 50,000 ity of capsule 00:00: Units by [address] weekly[address] [place] VITAMIN D2 Yes [id number] Take Unive rs 50,000 unit 4-17 50,000 ity of capsule 00:00: Units by [address] weekly[address] [place] VITAMIN D2 Yes [id number] Take Unive rs 50,000 unit 4-17 50,000 ity of capsule 00:00: Units by [address] weekly[address] [place] VITAMIN D2 Yes [id number] Take Unive rs 50,000 unit 4-17 50,000 ity of capsule 00:00: Units by [address] weekly. [place] VITAMIN D2 Yes [id number] Take Unive rs 50,000 unit 4-17 50,000 ity of capsule 00:00: Units by [address] weekly[address] [place] VITAMIN D2 Yes [id number] Take Unive rs 50,000 unit 4-17 50,000 ity of capsule 00:00: Units by [address] weekly[address] [place] VITAMIN D2 Yes [id number] Take Unive rs 50,000 unit 4-17 50,000 ity of capsule 00:00: Units by [address] weekly[address] [place] VITAMIN D2 Yes [id number] Take Unive rs 50,000 unit 4-17 50,000 ity of capsule 00:00: Units by [address] weekly[address] [place] VITAMIN D2 Yes [id number] Take Unive rs 50,000 unit 4-17 50,000 ity of capsule 00:00: Units by [address] weekly[address] [place] VITAMIN D2 Yes [id number] Take Unive rs 50,000 unit 4-17 50,000 ity of capsule 00:00: Units by [address] weekly[address] [place] VITAMIN D2 Yes [id number] Take Unive rs 50,000 unit 4-17 50,000 ity of capsule 00:00: Units by [address] weekly. Branch Bactrim DS No 1mg 800 mg-160 4-07 mg tablet 00:00: 00 atenolol 2016-0 Yes 100mg Take 100 Univ ers 100 mg 4-04 mg by ity of tablet 00:00: mouth [place] 00 daily. Medical Branch atenolol 2017-0 Yes 100mg Take 100 Univ ers 100 mg 4-04 mg by ity of tablet 00:00: mouth [place] 00 daily. Medical Branch atenolol 2017-0 Yes 100mg Take 100 Univ ers 100 mg 4-04 mg by ity of tablet 00:00: mouth [place] 00 daily. Medical Branch atenolol 2017-0 Yes 100mg Take 100 Univ ers 100 mg 4-04 mg by ity of tablet 00:00: mouth [place] 00 daily. Medical Branch atenolol 2017-0 Yes 100mg Take 100 Univ ers 100 mg 4-04 mg by ity of tablet 00:00: mouth [place] 00 daily. Medical Branch atenolol 2017-0 Yes 100mg Take 100 Univ ers 100 mg 4-04 mg by ity of tablet 00:00: mouth [place] 00 daily. Medical Branch atenolol 2017-0 Yes 100mg Take 100 Univ ers 100 mg 4-04 mg by ity of tablet 00:00: mouth [place] 00 daily. Medical Branch atenolol 2017-0 Yes 100mg Take 100 Univ ers 100 mg 4-04 mg by ity of tablet 00:00: mouth [place] 00 daily. Medical Branch atenolol 2017-0 Yes 100mg Take 100 Univ ers 100 mg 4-04 mg by ity of tablet 00:00: mouth [place] 00 daily. Medical Branch atenolol 2017-0 Yes 100mg Take 100 Univ ers 100 mg 4-04 mg by ity of tablet 00:00: mouth [place] 00 daily. Medical Branch atenolol 2017-0 Yes 100mg Take 100 Univ ers 100 mg 4-04 mg by ity of tablet 00:00: mouth [place] 00 daily. Medical Branch atenolol 2017-0 Yes 100mg Take 100 Univ ers 100 mg 4-04 mg by ity of tablet 00:00: mouth [place] 00 daily. Medical Branch atenolol 2017-0 Yes 100mg Take 100 Univ ers 100 mg 4-04 mg by ity of tablet 00:00: mouth [place] 00 daily. Medical Branch atenolol 2017-0 Yes 100mg Take 100 Univ ers 100 mg 4-04 mg by ity of tablet 00:00: mouth [place] 00 daily. Medical Branch atenolol 2017-0 Yes 100mg Take 100 Univ ers 100 mg 4-04 mg by ity of tablet 00:00: mouth [place] 00 daily. Medical Branch atenolol 2017-0 Yes 100mg Take 100 Univ ers 100 mg 4-04 mg by ity of tablet 00:00: mouth [place] 00 daily. Medical Branch atenolol 2017-0 Yes 100mg Take 100 Univ ers 100 mg 4-04 mg by ity of tablet 00:00: mouth [place] 00 daily. Medical Branch atenolol 2017-0 Yes 100mg Take 100 Univ ers 100 mg 4-04 mg by ity of tablet 00:00: mouth [place] 00 daily. Medical Branch atenolol 2017-0 Yes 100mg Take 100 Univ ers 100 mg 4-04 mg by ity of tablet 00:00: mouth [place] 00 daily. Medical Branch atenolol 2017-0 Yes 100mg Take 100 Univ ers 100 mg 4-04 mg by ity of tablet 00:00: mouth [place] 00 daily. Medical Branch atenolol 2017-0 Yes 100mg Take 100 Univ ers 100 mg 4-04 mg by ity of tablet 00:00: mouth [place] 00 daily. Medical Branch atenolol 2017-0 Yes 100mg Take 100 Univ ers 100 mg 4-04 mg by ity of tablet 00:00: mouth [place] 00 daily. Medical Branch triamcinolo 2017-0 No 1% ne 3-20 acetonide 00:00: 0.025 % 00 topical cream loratadine 2017-0 No 1mg 10 mg 3-20 tablet 00:00: 00 atenolol 2017-0 No 1mg 100 mg 3-04 tablet 00:00: 00 aspirin 81 2017-0 No 1mg mg 3-04 tablet,laura 00:00: yed release 00 naproxen 2017-0 No 1mg 250 mg 3-04 tablet 00:00: 00 spironolact 2017-0 No 1mg one 25 mg 3-04 tablet 00:00: 00 ondansetron 2017-0 No 1mg HCl 4 mg 3-04 tablet 00:00: 00 promethazin 2017-0 No 1mg e 12.5 mg 3-04 tablet 00:00: 00 gabapentin 2017-0 No 1mg 300 mg 3-04 capsule 00:00: 00 cyanocobala 2017-0 No 2mcg/mL min (vit 3-04 B-12) 1,000 00:00: mcg/mL 00 injection solution aspirin 2017-0 Yes 81mg Take 1 Univers [...] by ity of tablet 00:00: mouth at [place] 00 bedtime. Medical Branch aspirin 2017-0 Yes 81mg Take 1 Univers (ASPIRIN 1-30 tablet by ity of LOW DOSE) 00:00: mouth [place] 81 mg EC 00 daily. Medical tablet Branch atorvastati 2017-0 Yes 40mg Take 1 Univ ers n 40 mg 1-30 tablet by ity of tablet 00:00: mouth at [place] 00 bedtime. Medical Branch aspirin 2017-0 Yes 81mg Take 1 Univers (ASPIRIN 1-30 tablet by ity of LOW DOSE) 00:00: mouth [place] 81 mg EC 00 daily. Medical tablet Branch atorvastati 2017-0 Yes 40mg Take 1 Univ ers n 40 mg 1-30 tablet by ity of tablet 00:00: mouth at [place] 00 bedtime. Medical Branch aspirin 2017-0 Yes 81mg Take 1 Univers (ASPIRIN 1-30 tablet by ity of LOW DOSE) 00:00: mouth [place] 81 mg EC 00 daily. Medical tablet Branch atorvastati 2017-0 Yes 40mg Take 1 Univ ers n 40 mg 1-30 tablet by ity of tablet 00:00: mouth at [place] 00 bedtime. Medical Branch aspirin 2017-0 Yes 81mg Take 1 Univers (ASPIRIN 1-30 tablet by ity of LOW DOSE) 00:00: mouth [place] 81 mg EC 00 daily. Medical tablet Branch atorvastati 2017-0 Yes 40mg Take 1 Univ ers n 40 mg 1-30 tablet by ity of tablet 00:00: mouth at [place] 00 bedtime. Medical Branch aspirin 2017-0 Yes 81mg Take 1 Univers (ASPIRIN 1-30 tablet by ity of LOW DOSE) 00:00: mouth [place] 81 mg EC 00 daily. Medical tablet Branch atorvastati 2017-0 Yes 40mg Take 1 Univ ers n 40 mg 1-30 tablet by ity of tablet 00:00: mouth at [place] 00 bedtime. Medical Branch aspirin 2017-0 Yes 81mg Take 1 Univers (ASPIRIN 1-30 tablet by ity of LOW DOSE) 00:00: mouth [place] 81 mg EC 00 daily. Medical tablet Branch aspirin 2017-0 Yes 81mg Take 1 Univers (ASPIRIN 1-30 tablet by ity of LOW DOSE) 00:00: mouth [place] 81 mg EC 00 daily. Medical tablet Branch aspirin 2017-0 Yes 81mg Take 1 Univers (ASPIRIN 1-30 tablet by ity of LOW DOSE) 00:00: mouth [place] 81 mg EC 00 daily. Medical tablet Branch aspirin 2017-0 Yes 81mg Take 1 Univers (ASPIRIN 1-30 tablet by ity of LOW DOSE) 00:00: mouth [place] 81 mg EC 00 daily. Medical tablet Branch aspirin 2017-0 Yes 81mg Take 1 Univers (ASPIRIN 1-30 tablet by ity of LOW DOSE) 00:00: mouth [place] 81 mg EC 00 daily. Medical tablet Branch aspirin 2017-0 Yes 81mg Take 1 Univers (ASPIRIN 1-30 tablet by ity of LOW DOSE) 00:00: mouth [place] 81 mg EC 00 daily. Medical tablet Branch aspirin 2017-0 Yes 81mg Take 1 Univers (ASPIRIN 1-30 tablet by ity of LOW DOSE) 00:00: mouth [place] 81 mg EC 00 daily. Medical tablet Branch aspirin 2017-0 Yes 81mg Take 1 Univers (ASPIRIN 1-30 tablet by ity of LOW DOSE) 00:00: mouth [place] 81 mg EC 00 daily. Medical tablet Branch aspirin 2017-0 Yes 81mg Take 1 Univers (ASPIRIN 1-30 tablet by ity of LOW DOSE) 00:00: mouth [place] 81 mg EC 00 daily. Medical tablet Branch aspirin 2017-0 Yes 81mg Take 1 Univers (ASPIRIN 1-30 tablet by ity of LOW DOSE) 00:00: mouth [place] 81 mg EC 00 daily. Medical tablet Branch aspirin 2017-0 Yes 81mg Take 1 Univers (ASPIRIN 1-30 tablet by ity of LOW DOSE) 00:00: mouth [place] 81 mg EC 00 daily. Medical tablet Branch aspirin 2017-0 Yes 81mg Take 1 [...] mouth at [place] 00 bedtime. Medical Branch atorvastati 2021- No 40mg Take 1 Uni vers n 40 mg 1-30 -27 tablet by ity of tablet 00:00: 00:00 mouth at [place] 00 :00 bedtime. Medical Branch atorvastati 2021- No 40mg Take 1 Uni vers n 40 mg 1-30 -27 tablet by ity of tablet 00:00: 00:00 mouth at [place] 00 :00 bedtime. Medical Branch proMETHazin 2021- No 12.5mg Take 1 U nivers e 12.5 mg 1-30 07-12 tablet by ity of tablet 00:00: 00:00 mouth [place] 00 :00 every 6 Medical (six) Branch hours as needed for Nausea and Vomiting (N/V). proMETHazin 2021- No 12.5mg Take 1 U nivers e 12.5 mg 1-30 07-12 tablet by ity of tablet 00:00: 00:00 mouth [place] 00 :00 every 6 Medical (six) Branch hours as needed for Nausea and Vomiting (N/V). trazodone No 1mg 50 mg 1-11 tablet 00:00: 00 Transderm-S 2015-06 No 1mg/0.3 copy lathe tender 1.5 mg 2-28 mL transdermal 00:00: patch (1 mg 00 over 3 days) meclizine 2015-06 No 1mg 25 mg 2-28 tablet 00:00: 00 Tessalon 2015-06 No 12mg Perles 100 2-28 mg capsule 00:00: 00 clotrimazol 2015-06 No 1% e 1 % 2-08 topical 00:00: cream 00 Pat[place] 0.2 2015-06 No 1% % eye drops 1-18 00:00: 00 Transderm-S 2015- No 1mg/0.3 copy lathe tender 1.5 mg 8-26 mL transdermal 00:00: patch (1 mg 00 over 3 days) clarithromy No 1mg keshia 500 mg 6-29 tablet 00:00: 00 naproxen No 1mg 375 mg 6-23 tablet 00:00: 00 Tessalon No 1mg Perles 100 6-23 mg capsule 00:00: 00 albuterol No 3/3 mL sulfate 2.5 6-23 (0.083 mg/3 mL 00:00: %) (0.083 %) 00 solution for nebulizatio n azithromyci No 1mg n 250 mg 6-22 tablet 00:00: 00 azithromyci No mg n 250 mg 6-22 tablet 00:00: 00 cyanocobala No 2mcg/mL min (vit 6-16 B-12) 1,000 00:00: mcg/mL 00 injection solution Nasonex 50 No 2mcg/ac mcg/actuati 5-29 tuation on [place] 00:00: 00 Nexium 40 No 1mg mg 5-29 capsule,del 00:00: ayed 00 release atenolol No 1mg 100 mg 4-24 tablet 00:00: 00 Amitiza 24 No 1mcg mcg capsule 4-24 00:00: 00 Transderm-S No 1mg/0.3 copy lathe tender 1.5 mg 3-11 mL transdermal 00:00: patch (1 mg 00 over 3 days) promethazin No 5mg e 25 mg 1-12 tablet 00:00: 00 furosemide No 1mg 40 mg 1-02 tablet 00:00: 00 meclizine 2014-06 No 1mg 25 mg 1-10 tablet 00:00: 00 CREON Yes 2{tbl} Take 2 Univers 36,000-114, 4-14 Tabs by itsergio o f 000- 00:00: mouth 2 [place] [...] ity o f 000- 00:00: mouth 2 [place] 180,000 00 (two) Medical unit CpDR times [...] Wheezing or Shortness of Breath. PROAIR HFA 0 Yes 2{puff} Inhale 2 Univers 90 3-14 Puffs ity of mcg/actuati 00:00: every 6 [place] as on inhaler 00 (six) Medical hours as Branch needed for Wheezing or Shortness of Breath. PROAIR HFA 0 Yes 2{puff} Inhale 2 Univers 90 3-14 Puffs ity of mcg/actuati 00:00: every 6 [place] as on inhaler 00 (six) Medical hours as Branch needed for Wheezing or Shortness of Breath. PROAIR HFA 2015-0 Yes 2{puff} Inhale 2 Univers 90 3-14 [...] needed for Wheezing or Shortness of Breath. hydrocodone No 1mg 10 1-01 mg-acetamin 00:00: ophen 325 00 mg tablet lorazepam No 1mg 0.5 mg 1-01 tablet 00:00: 00 Trelegy Trelegy Yes Tonio 1 puff Commo n Ellipta Ellipta [facility] Loratadine Loratadine Yes [place]io 1 tablet Common [facility] Vitamin B12 Vitamin B12 Yes Tonio 1 tablet Common [facility] Synthroid Synthroid Yes Tonio 1 tablet Common [facility] on an [facility] empty - CHI stomach in [facility] Aspirin Aspirin Yes Tonio TAKE 1 Commo n [facility] TABLET BY [facility] MOUTH - [facility] EVERY DAY [facility] Aspirin Low Aspirin Low Yes Tonio TAKE 1 Common Dose Dose [facility] TABLET BY [facility] MOUTH - [facility] EVERY DAY [facility] Atenolol Atenolol Yes [place]io TAKE 1 Com mon [facility] TABLET BY [facility] MOUTH - [facility] EVERY DAY [facility] Nexium Nexium Yes Tonio TAKE ONE Commo n [facility] CAPSULE BY [facility] MOUTH - [facility] EVERY DAY [facility] ProAir HFA ProAir HFA Yes Tonio 2 puffs as Common [facility] needed [facility] Furosemide Furosemide Yes Tonio 1 tablet Common [facility] Venlafaxine Venlafaxine Yes Tonio TAKE ONE Common HCl ER HCl ER Miller CAPSULE BY Spir it MOUTH - CHI EVERY DAY [facility] Simvastatin Simvastatin Yes Tonio 1 tablet Common [facility] in [facility] evening - CHI [facility] Simvastatin Simvastatin Yes Tonio 1 tablet Common [facility] in [facility] evening CHI [facility] Levothyroxi Levothyroxi Yes Tonio TAKE 1 Common ne Sodium ne Sodium [facility] TABLET BY Spirit MOUTH - [facility] EVERY DAY [facility] Aspirin Aspirin Yes Tonio TAKE 1 Commo n [facility] TABLET BY [facility] MOUTH - [facility]I EVERY DAY [facility] Clopidogrel Clopidogrel Yes Tonio 1 tablet Common Bisulfate Bisulfate [facility] Spir it - [facility]I [facility] Promethazin Promethazin Yes Tonio 1 ml as Common e HCl e HCl [facility] needed [facility] Gabapentin Gabapentin Yes Tonio TAKE 1 Common [facility] CAPSULE BY [facility] MOUTH - [facility]I EVERY DAY [facility] Zofran Zofran Yes Tonio 1 tablet Commo n [place] as needed [facility] Docusate Docusate Yes Tonio TAKE 1 Com mon Sodium Sodium [facility] CAPSULE BY Spir it MOUTH - CHI TWICE [facility] Spironolact Spironolact Yes Tonio TAKE 1 Common one one [facility] TABLET BY [facility] MOUTH - [facility]I EVERY DAY [facility] Venlafaxine Venlafaxine Yes Tonio 1 capsule Common HCl ER HCl ER Miller with food Sp[facility] Nasonex Nasonex Yes Tonio 2 sprays Com mon [facility] in each [facility] nostril [facility] Hydrocodone Hydrocodone Yes Tonio 1 tablet Common -Acetaminop -Acetaminop Miller as needed [facility] Clotrimazol Clotrimazol Yes Tonio 1 Common e e Miller applicatio [facility] HYDROcodone HYDROcodone No 1{table QID HYDROcodon -Acetaminop -Acetaminop t_as_ne e-Acetamin hen 5-325 hen 5-325 eded} ophen MG MG 5-325 MG Clopidogrel Clopidogrel No 1{table QD Clopidogre Bisulfate Bisulfate t} l 75 MG 75 MG Bisulfate 75 MG Simvastatin Simvastatin No 1{table QD Simvastati 40 MG 40 MG t_in_th n 40 MG e_eveni ng} Venlafaxine Venlafaxine No 1{capsu QD Venlafaxin HCl ER 75 HCl ER 75 le_with e HCl ER MG MG _food} 75 MG NexIUM 40 NexIUM 40 No NexIUM 40 MG MG MG HYDROcodone HYDROcodone No 1{table QD HYDROcodon -Acetaminop -Acetaminop t} e-Acetamin hen 5-325 hen 5-325 ophen MG MG 5-325 MG Furosemide Furosemide No 1{table QD Furosemide 20 MG 20 MG t} 20 MG Gabapentin Gabapentin No Gabapentin 100 MG 100 MG 100 MG Linzess 145 Linzess 145 No 1{capsu QD Linzess mcg mcg le} 145 mcg Venlafaxine Venlafaxine No QD Venlafaxin HCl ER 150 HCl ER 150 e HCl ER MG MG 150 MG Aspirin Low Aspirin Low No Aspirin Dose 81 MG Dose 81 MG Low Dose 81 MG Vitamin D3 Vitamin D3 No 1{capsu Vitamin D3 92511 UNIT 73631 UNIT le} 14141 UNIT Synthroid Synthroid No QD Synthroid 25 MCG 25 MCG 25 MCG Aspirin 81 Aspirin 81 No Aspirin 81 MG MG MG Synthroid Synthroid No QD Synthroid 25 MCG 25 MCG 25 MCG Venlafaxine Venlafaxine No QD Venlafaxin HCl ER 150 HCl ER 150 e HCl ER MG MG 150 MG Spironolact Spironolact No 1{table QD Spironolac one 25 MG one 25 MG t} tone 25 MG ProAir HFA ProAir HFA No 2{puffs QID ProAir HFA 108 (90 108 (90 _as_nee 108 (90 Base) Base) ded} Base) MCG/ACT MCG/ACT MCG/ACT Trelegy Trelegy No 1{puff} QD Trelegy Ellipta Ellipta Ellipta 100-62.5-25 100-62.5-25 100-62.5-2 MCG/INH MCG/INH 5 MCG/INH Atenolol Atenolol No Atenolol 100 MG 100 MG 100 MG Zofran 4 MG Zofran 4 MG No 1{table QD Zofran 4 t_as_ne MG eded} Levothyroxi Levothyroxi No Levothyrox ne Sodium ne Sodium ine Sodium 50 MCG 50 MCG 50 MCG Aspirin 81 Aspirin 81 No Aspirin 81 MG MG MG HYDROcodone HYDROcodone No 1{table QID HYDROcodon -Acetaminop -Acetaminop t_as_ne e-Acetamin hen 5-325 hen 5-325 eded} ophen MG MG 5-325 MG Clopidogrel Clopidogrel No 1{table QD Clopidogre Bisulfate Bisulfate t} l 75 MG 75 MG Bisulfate 75 MG Simvastatin Simvastatin No 1{table QD Simvastati 40 MG 40 MG t_in_th n 40 MG e_eveni ng} Venlafaxine Venlafaxine No 1{capsu QD Venlafaxin HCl ER 75 HCl ER 75 le_with e HCl ER MG MG _food} 75 MG NexIUM 40 NexIUM 40 No NexIUM 40 MG MG MG HYDROcodone HYDROcodone No 1{table QD HYDROcodon -Acetaminop -Acetaminop t} e-Acetamin hen 5-325 hen 5-325 ophen MG MG 5-325 MG Furosemide Furosemide No 1{table QD Furosemide 20 MG 20 MG t} 20 MG Gabapentin Gabapentin No Gabapentin 100 MG 100 MG 100 MG Linzess 145 Linzess 145 No 1{capsu QD Linzess mcg mcg le} 145 mcg Venlafaxine Venlafaxine No QD Venlafaxin HCl ER 150 HCl ER 150 e HCl ER MG MG 150 MG Aspirin Low Aspirin Low No Aspirin Dose 81 MG Dose 81 MG Low Dose 81 MG Vitamin D3 Vitamin D3 No 1{capsu Vitamin D3 55210 UNIT 68965 UNIT le} 92560 UNIT Synthroid Synthroid No QD Synthroid 25 MCG 25 MCG 25 MCG Aspirin 81 Aspirin 81 No Aspirin 81 MG MG MG Synthroid Synthroid No QD Synthroid 25 MCG 25 MCG 25 MCG Venlafaxine Venlafaxine No QD Venlafaxin HCl ER 150 HCl ER 150 e HCl ER MG MG 150 MG Spironolact Spironolact No 1{table QD Spironolac one 25 MG one 25 MG t} tone 25 MG ProAir HFA ProAir HFA No 2{puffs QID ProAir HFA 108 (90 108 (90 _as_nee 108 (90 Base) Base) ded} Base) MCG/ACT MCG/ACT MCG/ACT Trelegy Trelegy No 1{puff} QD Trelegy Ellipta Ellipta Ellipta 100-62.5-25 100-62.5-25 100-62.5-2 MCG/INH MCG/INH 5 MCG/INH Atenolol Atenolol No Atenolol 100 MG 100 MG 100 MG Zofran 4 MG Zofran 4 MG No 1{table QD Zofran 4 t_as_ne MG eded} Levothyroxi Levothyroxi No Levothyrox ne Sodium ne Sodium ine Sodium 50 MCG 50 MCG 50 MCG Vitamin D3 Vitamin D3 No 1{capsu Vitamin D3 49665 UNIT 83224 UNIT le} 69181 UNIT Furosemide Furosemide No 1{table QD Furosemide 20 MG 20 MG t} 20 MG Gabapentin Gabapentin No Gabapentin 100 MG 100 MG 100 MG Aspirin 81 Aspirin 81 No Aspirin 81 MG MG MG Zofran 4 MG Zofran 4 MG No 1{table QD Zofran 4 t_as_ne MG eded} Spironolact Spironolact No 1{table QD Spironolac one 25 MG one 25 MG t} tone 25 MG Atenolol Atenolol No Atenolol 100 MG 100 MG 100 MG HYDROcodone HYDROcodone No 1{table QD HYDROcodon -Acetaminop -Acetaminop t} e-Acetamin hen 5-325 hen 5-325 ophen MG MG 5-325 MG Aspirin 81 Aspirin 81 No Aspirin 81 MG MG MG Synthroid Synthroid No QD Synthroid 25 MCG 25 MCG 25 MCG Linzess 145 Linzess 145 No 1{capsu QD Linzess mcg mcg le} 145 mcg ProAir HFA ProAir HFA No 2{puffs QID ProAir HFA 108 (90 108 (90 _as_nee 108 (90 Base) Base) ded} Base) MCG/ACT MCG/ACT MCG/ACT HYDROcodone HYDROcodone No 1{table QID HYDROcodon -Acetaminop -Acetaminop t_as_ne e-Acetamin hen 5-325 hen 5-325 eded} ophen MG MG 5-325 MG Trelegy Trelegy No 1{puff} QD Trelegy Ellipta Ellipta Ellipta 100-62.5-25 100-62.5-25 100-62.5-2 MCG/INH MCG/INH 5 MCG/INH Aspirin Low Aspirin Low No Aspirin Dose 81 MG Dose 81 MG Low Dose 81 MG Clopidogrel Clopidogrel No 1{table QD Clopidogre Bisulfate Bisulfate t} l 75 MG 75 MG Bisulfate 75 MG NexIUM 40 NexIUM 40 No NexIUM 40 MG MG MG Venlafaxine Venlafaxine No QD Venlafaxin HCl ER 150 HCl ER 150 e HCl ER MG MG 150 MG Simvastatin Simvastatin No 1{table QD Simvastati 40 MG 40 MG t_in_ n 40 MG e_eveni ng} Venlafaxine Venlafaxine No 1{capsu QD Venlafaxin HCl ER 75 HCl ER 75 le_with e HCl ER MG MG _food} 75 MG Levothyroxi Levothyroxi No Levothyrox ne Sodium ne Sodium ine Sodium 50 MCG 50 MCG 50 MCG Synthroid Synthroid No QD Synthroid 25 MCG 25 MCG 25 MCG Vitamin D3 Vitamin D3 No 1{capsu Vitamin D3 93183 UNIT 50847 UNIT le} 96932 UNIT Furosemide Furosemide No 1{table QD Furosemide 20 MG 20 MG t} 20 MG Gabapentin Gabapentin No Gabapentin 100 MG 100 MG 100 MG Aspirin 81 Aspirin 81 No Aspirin 81 MG MG MG Zofran 4 MG Zofran 4 MG No 1{table QD Zofran 4 t_as_ne MG eded} Spironolact Spironolact No 1{table QD Spironolac one 25 MG one 25 MG t} tone 25 MG Atenolol Atenolol No Atenolol 100 MG 100 MG 100 MG HYDROcodone HYDROcodone No 1{table QD HYDROcodon -Acetaminop -Acetaminop t} e-Acetamin hen 5-325 hen 5-325 ophen MG MG 5-325 MG Aspirin 81 Aspirin 81 No Aspirin 81 MG MG MG Synthroid Synthroid No QD Synthroid 25 MCG 25 MCG 25 MCG Linzess 145 Linzess 145 No 1{capsu QD Linzess mcg mcg le} 145 mcg ProAir HFA ProAir HFA No 2{puffs QID ProAir HFA 108 (90 108 (90 _as_nee 108 (90 Base) Base) ded} Base) MCG/ACT MCG/ACT MCG/ACT HYDROcodone HYDROcodone No 1{table QID HYDROcodon -Acetaminop -Acetaminop t_as_ne e-Acetamin hen 5-325 hen 5-325 eded} ophen MG MG 5-325 MG Trelegy Trelegy No 1{puff} QD Trelegy Ellipta Ellipta Ellipta 100-62.5-25 100-62.5-25 100-62.5-2 MCG/INH MCG/INH 5 MCG/INH Aspirin Low Aspirin Low No Aspirin Dose 81 MG Dose 81 MG Low Dose 81 MG Clopidogrel Clopidogrel No 1{table QD Clopidogre Bisulfate Bisulfate t} l 75 MG 75 MG Bisulfate 75 MG NexIUM 40 NexIUM 40 No NexIUM 40 MG MG MG Venlafaxine Venlafaxine No QD Venlafaxin HCl ER 150 HCl ER 150 e HCl ER MG MG 150 MG Simvastatin Simvastatin No 1{table QD Simvastati 40 MG 40 MG t_in_th n 40 MG e_eveni ng} Venlafaxine Venlafaxine No 1{capsu QD Venlafaxin HCl ER 75 HCl ER 75 le_with e HCl ER MG MG _food} 75 MG Levothyroxi Levothyroxi No Levothyrox ne Sodium ne Sodium ine Sodium 50 MCG 50 MCG 50 MCG Synthroid Synthroid No QD Synthroid 25 MCG 25 MCG 25 MCG Vitamin D3 Vitamin D3 No 1{capsu Vitamin D3 83714 UNIT 44464 UNIT le} 16653 UNIT Furosemide Furosemide No 1{table QD Furosemide 20 MG 20 MG t} 20 MG Gabapentin Gabapentin No Gabapentin 100 MG 100 MG 100 MG Aspirin 81 Aspirin 81 No Aspirin 81 MG MG MG Zofran 4 MG Zofran 4 MG No 1{table QD Zofran 4 t_as_ne MG eded} Spironolact Spironolact No 1{table QD Spironolac one 25 MG one 25 MG t} tone 25 MG Atenolol Atenolol No Atenolol 100 MG 100 MG 100 MG HYDROcodone HYDROcodone No 1{table QD HYDROcodon -Acetaminop -Acetaminop t} e-Acetamin hen 5-325 hen 5-325 ophen MG MG 5-325 MG Aspirin 81 Aspirin 81 No Aspirin 81 MG MG MG Synthroid Synthroid No QD Synthroid 25 MCG 25 MCG 25 MCG Linzess 145 Linzess 145 No 1{capsu QD Linzess mcg mcg le} 145 mcg ProAir HFA ProAir HFA No 2{puffs QID ProAir HFA 108 (90 108 (90 _as_nee 108 (90 Base) Base) ded} Base) MCG/ACT MCG/ACT MCG/ACT HYDROcodone HYDROcodone No 1{table QID HYDROcodon -Acetaminop -Acetaminop t_as_ne e-Acetamin hen 5-325 hen 5-325 eded} ophen MG MG 5-325 MG Trelegy Trelegy No 1{puff} QD Trelegy Ellipta Ellipta Ellipta 100-62.5-25 100-62.5-25 100-62.5-2 MCG/INH MCG/INH 5 MCG/INH Aspirin Low Aspirin Low No Aspirin Dose 81 MG Dose 81 MG Low Dose 81 MG Clopidogrel Clopidogrel No 1{table QD Clopidogre Bisulfate Bisulfate t} l 75 MG 75 MG Bisulfate 75 MG NexIUM 40 NexIUM 40 No NexIUM 40 MG MG MG Venlafaxine Venlafaxine No QD Venlafaxin HCl ER 150 HCl ER 150 e HCl ER MG MG 150 MG Simvastatin Simvastatin No 1{table QD Simvastati 40 MG 40 MG t_in_th n 40 MG e_eveni ng} Venlafaxine Venlafaxine No 1{capsu QD Venlafaxin HCl ER 75 HCl ER 75 le_with e HCl ER MG MG _food} 75 MG Levothyroxi Levothyroxi No Levothyrox ne Sodium ne Sodium ine Sodium 50 MCG 50 MCG 50 MCG Synthroid Synthroid No QD Synthroid 25 MCG 25 MCG 25 MCG Vitamin D3 Vitamin D3 No 1{capsu Vitamin D3 38892 UNIT 23365 UNIT le} 31429 UNIT Furosemide Furosemide No 1{table QD Furosemide 20 MG 20 MG t} 20 MG Gabapentin Gabapentin No Gabapentin 100 MG 100 MG 100 MG Aspirin 81 Aspirin 81 No Aspirin 81 MG MG MG Zofran 4 MG Zofran 4 MG No 1{table QD Zofran 4 t_as_ne MG eded} Spironolact Spironolact No 1{table QD Spironolac one 25 MG one 25 MG t} tone 25 MG Atenolol Atenolol No Atenolol 100 MG 100 MG 100 MG HYDROcodone HYDROcodone No 1{table QD HYDROcodon -Acetaminop -Acetaminop t} e-Acetamin hen 5-325 hen 5-325 ophen MG MG 5-325 MG Aspirin 81 Aspirin 81 No Aspirin 81 MG MG MG Synthroid Synthroid No QD Synthroid 25 MCG 25 MCG 25 MCG Linzess 145 Linzess 145 No 1{capsu QD Linzess mcg mcg le} 145 mcg ProAir HFA ProAir HFA No 2{puffs QID ProAir HFA 108 (90 108 (90 _as_nee 108 (90 Base) Base) ded} Base) MCG/ACT MCG/ACT MCG/ACT HYDROcodone HYDROcodone No 1{table QID HYDROcodon -Acetaminop -Acetaminop t_as_ne e-Acetamin hen 5-325 hen 5-325 eded} ophen MG MG 5-325 MG Trelegy Trelegy No 1{puff} QD Trelegy Ellipta Ellipta Ellipta 100-62.5-25 100-62.5-25 100-62.5-2 MCG/INH MCG/INH 5 MCG/INH Aspirin Low Aspirin Low No Aspirin Dose 81 MG Dose 81 MG Low Dose 81 MG Clopidogrel Clopidogrel No 1{table QD Clopidogre Bisulfate Bisulfate t} l 75 MG 75 MG Bisulfate 75 MG NexIUM 40 NexIUM 40 No NexIUM 40 MG MG MG Venlafaxine Venlafaxine No QD Venlafaxin HCl ER 150 HCl ER 150 e HCl ER MG MG 150 MG Simvastatin Simvastatin No 1{table QD Simvastati 40 MG 40 MG t_in_ n 40 MG e_eveni ng} Venlafaxine Venlafaxine No 1{capsu QD Venlafaxin HCl ER 75 HCl ER 75 le_with e HCl ER MG MG _food} 75 MG Levothyroxi Levothyroxi No Levothyrox ne Sodium ne Sodium ine Sodium 50 MCG 50 MCG 50 MCG Synthroid Synthroid No QD Synthroid 25 MCG 25 MCG 25 MCG Vitamin D3 Vitamin D3 No 1{capsu Vitamin D3 73167 UNIT 08799 UNIT le} 81966 UNIT Furosemide Furosemide No 1{table QD Furosemide 20 MG 20 MG t} 20 MG Gabapentin Gabapentin No Gabapentin 100 MG 100 MG 100 MG Aspirin 81 Aspirin 81 No Aspirin 81 MG MG MG Zofran 4 MG Zofran 4 MG No 1{table QD Zofran 4 t_as_ne MG eded} Spironolact Spironolact No 1{table QD Spironolac one 25 MG one 25 MG t} tone 25 MG Atenolol Atenolol No Atenolol 100 MG 100 MG 100 MG HYDROcodone HYDROcodone No 1{table QD HYDROcodon -Acetaminop -Acetaminop t} e-Acetamin hen 5-325 hen 5-325 ophen MG MG 5-325 MG Aspirin 81 Aspirin 81 No Aspirin 81 MG MG MG Synthroid Synthroid No QD Synthroid 25 MCG 25 MCG 25 MCG Linzess 145 Linzess 145 No 1{capsu QD Linzess mcg mcg le} 145 mcg ProAir HFA ProAir HFA No 2{puffs QID ProAir HFA 108 (90 108 (90 _as_nee 108 (90 Base) Base) ded} Base) MCG/ACT MCG/ACT MCG/ACT HYDROcodone HYDROcodone No 1{table QID HYDROcodon -Acetaminop -Acetaminop t_as_ne e-Acetamin hen 5-325 hen 5-325 eded} ophen MG MG 5-325 MG Trelegy Trelegy No 1{puff} QD Trelegy Ellipta Ellipta Ellipta 100-62.5-25 100-62.5-25 100-62.5-2 MCG/INH MCG/INH 5 MCG/INH Aspirin Low Aspirin Low No Aspirin Dose 81 MG Dose 81 MG Low Dose 81 MG Clopidogrel Clopidogrel No 1{table QD Clopidogre Bisulfate Bisulfate t} l 75 MG 75 MG Bisulfate 75 MG NexIUM 40 NexIUM 40 No NexIUM 40 MG MG MG Venlafaxine Venlafaxine No QD Venlafaxin HCl ER 150 HCl ER 150 e HCl ER MG MG 150 MG Simvastatin Simvastatin No 1{table QD Simvastati 40 MG 40 MG t_in_th n 40 MG e_eveni ng} Venlafaxine Venlafaxine No 1{capsu QD Venlafaxin HCl ER 75 HCl ER 75 le_with e HCl ER MG MG _food} 75 MG Levothyroxi Levothyroxi No Levothyrox ne Sodium ne Sodium ine Sodium 50 MCG 50 MCG 50 MCG Synthroid Synthroid No QD Synthroid 25 MCG 25 MCG 25 MCG Zofran 4 MG Zofran 4 MG No 1{table QD Zofran 4 t_as_ne MG eded} Synthroid Synthroid No QD Synthroid 25 MCG 25 MCG 25 MCG Venlafaxine Venlafaxine No 1{capsu QD Venlafaxin HCl ER 75 HCl ER 75 le_with e HCl ER MG MG _food} 75 MG Synthroid Synthroid No QD Synthroid 25 MCG 25 MCG 25 MCG Aspirin 81 Aspirin 81 No Aspirin 81 MG MG MG ProAir HFA ProAir HFA No 2{puffs QID ProAir HFA 108 (90 108 (90 _as_nee 108 (90 Base) Base) ded} Base) MCG/ACT MCG/ACT MCG/ACT Gabapentin Gabapentin No Gabapentin 100 MG 100 MG 100 MG Linzess 145 Linzess 145 No 1{capsu QD Linzess mcg mcg le} 145 mcg Aspirin Low Aspirin Low No Aspirin Dose 81 MG Dose 81 MG Low Dose 81 MG Simvastatin Simvastatin No 1{table QD Simvastati 40 MG 40 MG t_in_th n 40 MG e_eveni ng} Levothyroxi Levothyroxi No Levothyrox ne Sodium ne Sodium ine Sodium 50 MCG 50 MCG 50 MCG Vitamin D3 Vitamin D3 No 1{capsu Vitamin D3 93587 UNIT 92779 UNIT le} 94736 UNIT NexIUM 40 NexIUM 40 No NexIUM 40 MG MG MG Furosemide Furosemide No 1{table QD Furosemide 20 MG 20 MG t} 20 MG Atenolol Atenolol No Atenolol 100 MG 100 MG 100 MG HYDROcodone HYDROcodone No 1{table QID HYDROcodon -Acetaminop -Acetaminop t_as_ne e-Acetamin hen 5-325 hen 5-325 eded} ophen MG MG 5-325 MG Trelegy Trelegy No 1{puff} QD Trelegy Ellipta Ellipta Ellipta 100-62.5-25 100-62.5-25 100-62.5-2 MCG/INH MCG/INH 5 MCG/INH HYDROcodone HYDROcodone No 1{table QD HYDROcodon -Acetaminop -Acetaminop t} e-Acetamin hen 5-325 hen 5-325 ophen MG MG 5-325 MG Spironolact Spironolact No 1{table QD Spironolac one 25 MG one 25 MG t} tone 25 MG Aspirin 81 Aspirin 81 No Aspirin 81 MG MG MG Venlafaxine Venlafaxine No QD Venlafaxin HCl ER 150 HCl ER 150 e HCl ER MG MG 150 MG Clopidogrel Clopidogrel No 1{table QD Clopidogre Bisulfate Bisulfate t} l 75 MG 75 MG Bisulfate 75 MG Zofran 4 MG Zofran 4 MG No 1{table QD Zofran 4 t_as_ne MG eded} Synthroid Synthroid No QD Synthroid 25 MCG 25 MCG 25 MCG Venlafaxine Venlafaxine No 1{capsu QD Venlafaxin HCl ER 75 HCl ER 75 le_with e HCl ER MG MG _food} 75 MG Synthroid Synthroid No QD Synthroid 25 MCG 25 MCG 25 MCG Aspirin 81 Aspirin 81 No Aspirin 81 MG MG MG ProAir HFA ProAir HFA No 2{puffs QID ProAir HFA 108 (90 108 (90 _as_nee 108 (90 Base) Base) ded} Base) MCG/ACT MCG/ACT MCG/ACT Gabapentin Gabapentin No Gabapentin 100 MG 100 MG 100 MG Linzess 145 Linzess 145 No 1{capsu QD Linzess mcg mcg le} 145 mcg Aspirin Low Aspirin Low No Aspirin Dose 81 MG Dose 81 MG Low Dose 81 MG Simvastatin Simvastatin No 1{table QD Simvastati 40 MG 40 MG t_in_th n 40 MG e_eveni ng} Levothyroxi Levothyroxi No Levothyrox ne Sodium ne Sodium ine Sodium 50 MCG 50 MCG 50 MCG Vitamin D3 Vitamin D3 No 1{capsu Vitamin D3 14926 UNIT 10854 UNIT le} 49945 UNIT NexIUM 40 NexIUM 40 No NexIUM 40 MG MG MG Furosemide Furosemide No 1{table QD Furosemide 20 MG 20 MG t} 20 MG Atenolol Atenolol No Atenolol 100 MG 100 MG 100 MG HYDROcodone HYDROcodone No 1{table QID HYDROcodon -Acetaminop -Acetaminop t_as_ne e-Acetamin hen 5-325 hen 5-325 eded} ophen MG MG 5-325 MG Trelegy Trelegy No 1{puff} QD Trelegy Ellipta Ellipta Ellipta 100-62.5-25 100-62.5-25 100-62.5-2 MCG/INH MCG/INH 5 MCG/INH HYDROcodone HYDROcodone No 1{table QD HYDROcodon -Acetaminop -Acetaminop t} e-Acetamin hen 5-325 hen 5-325 ophen MG MG 5-325 MG Spironolact Spironolact No 1{table QD Spironolac one 25 MG one 25 MG t} tone 25 MG Aspirin 81 Aspirin 81 No Aspirin 81 MG MG MG Venlafaxine Venlafaxine No QD Venlafaxin HCl ER 150 HCl ER 150 e HCl ER MG MG 150 MG Clopidogrel Clopidogrel No 1{table QD Clopidogre Bisulfate Bisulfate t} l 75 MG 75 MG Bisulfate 75 MG Clopidogrel Clopidogrel No 1{table QD Clopidogre Bisulfate Bisulfate t} l 75 MG 75 MG Bisulfate 75 MG Atenolol Atenolol No Atenolol 100 MG 100 MG 100 MG Aspirin Low Aspirin Low No Aspirin Dose 81 MG Dose 81 MG Low Dose 81 MG Synthroid Synthroid No QD Synthroid 25 MCG 25 MCG 25 MCG Trelegy Trelegy No 1{puff} QD Trelegy Ellipta Ellipta Ellipta 100-62.5-25 100-62.5-25 100-62.5-2 MCG/INH MCG/INH 5 MCG/INH Aspirin 81 Aspirin 81 No Aspirin 81 MG MG MG Venlafaxine Venlafaxine No 1{capsu QD Venlafaxin HCl ER 75 HCl ER 75 le_with e HCl ER MG MG _food} 75 MG NexIUM 40 NexIUM 40 No NexIUM 40 MG MG MG HYDROcodone HYDROcodone No 1{table QID HYDROcodon -Acetaminop -Acetaminop t_as_ne e-Acetamin hen 5-325 hen 5-325 eded} ophen MG MG 5-325 MG Vitamin D3 Vitamin D3 No 1{capsu Vitamin D3 44040 UNIT 87995 UNIT le} 21611 UNIT Furosemide Furosemide No 1{table QD Furosemide 20 MG 20 MG t} 20 MG Vitamin D3 Vitamin D3 No 1{capsu Vitamin D3 29836 UNIT 69453 UNIT le} 87574 UNIT Atenolol Atenolol No QD Atenolol 100 MG 100 MG 100 MG Aspirin 81 Aspirin 81 No Aspirin 81 MG MG MG Venlafaxine Venlafaxine No QD Venlafaxin HCl ER 150 HCl ER 150 e HCl ER MG MG 150 MG Venlafaxine Venlafaxine No QD Venlafaxin HCl ER 150 HCl ER 150 e HCl ER MG MG 150 MG Synthroid Synthroid No QD Synthroid 25 MCG 25 MCG 25 MCG ProAir HFA ProAir HFA No 2{puffs QID ProAir HFA 108 (90 108 (90 _as_nee 108 (90 Base) Base) ded} Base) MCG/ACT MCG/ACT MCG/ACT Simvastatin Simvastatin No 1{table QD Simvastati 40 MG 40 MG t_in_th n 40 MG e_eveni ng} Gabapentin Gabapentin No Gabapentin 100 MG 100 MG 100 MG Zofran 4 MG Zofran 4 MG No 1{table QD Zofran 4 t_as_ne MG eded} HYDROcodone HYDROcodone No 1{table QD HYDROcodon -Acetaminop -Acetaminop t} e-Acetamin hen 5-325 hen 5-325 ophen MG MG 5-325 MG Linzess 145 Linzess 145 No 1{capsu QD Linzess mcg mcg le} 145 mcg Spironolact Spironolact No 1{table QD Spironolac one 25 MG one 25 MG t} tone 25 MG Levothyroxi Levothyroxi No Levothyrox ne Sodium ne Sodium ine Sodium 50 MCG 50 MCG 50 MCG Furosemide Furosemide No 1{table QD Furosemide 20 MG 20 MG t} 20 MG Synthroid Synthroid No QD Synthroid 25 MCG 25 MCG 25 MCG Aspirin 81 Aspirin 81 No Aspirin 81 MG MG MG Synthroid Synthroid No QD Synthroid 25 MCG 25 MCG 25 MCG NexIUM 40 NexIUM 40 No NexIUM 40 MG MG MG Trelegy Trelegy No 1{puff} QD Trelegy Ellipta Ellipta Ellipta 100-62.5-25 100-62.5-25 100-62.5-2 MCG/INH MCG/INH 5 MCG/INH Atenolol Atenolol No Atenolol 100 MG 100 MG 100 MG ProAir HFA ProAir HFA No 2{puffs QID ProAir HFA 108 (90 108 (90 _as_nee 108 (90 Base) Base) ded} Base) MCG/ACT MCG/ACT MCG/ACT HYDROcodone HYDROcodone No 1{table QD HYDROcodon -Acetaminop -Acetaminop t} e-Acetamin hen 5-325 hen 5-325 ophen MG MG 5-325 MG Spironolact Spironolact No 1{table QD Spironolac one 25 MG one 25 MG t} tone 25 MG Atenolol Atenolol No QD Atenolol 100 MG 100 MG 100 MG Clopidogrel Clopidogrel No 1{table QD Clopidogre Bisulfate Bisulfate t} l 75 MG 75 MG Bisulfate 75 MG Linzess 145 Linzess 145 No 1{capsu QD Linzess mcg mcg le} 145 mcg Levothyroxi Levothyroxi No Levothyrox ne Sodium ne Sodium ine Sodium 50 MCG 50 MCG 50 MCG Simvastatin Simvastatin No Simvastati 40 MG 40 MG n 40 MG Vitamin D3 Vitamin D3 No 1{capsu Vitamin D3 36647 UNIT 29454 UNIT le} 04939 UNIT Venlafaxine Venlafaxine No QD Venlafaxin HCl ER 150 HCl ER 150 e HCl ER MG MG 150 MG Venlafaxine Venlafaxine No QD Venlafaxin HCl ER 150 HCl ER 150 e HCl ER MG MG 150 MG Zofran 4 MG Zofran 4 MG No 1{table QD Zofran 4 t_as_ne MG eded} Aspirin Low Aspirin Low No Aspirin Dose 81 MG Dose 81 MG Low Dose 81 MG HYDROcodone HYDROcodone No 1{table QID HYDROcodon -Acetaminop -Acetaminop t_as_ne e-Acetamin hen 5-325 hen 5-325 eded} ophen MG MG 5-325 MG Gabapentin Gabapentin No Gabapentin 100 MG 100 MG 100 MG Venlafaxine Venlafaxine No 1{capsu QD Venlafaxin HCl ER 75 HCl ER 75 le_with e HCl ER MG MG _food} 75 MG Aspirin 81 Aspirin 81 No Aspirin 81 MG MG MG Synthroid Synthroid No QD Synthroid 25 MCG 25 MCG 25 MCG Aspirin 81 Aspirin 81 No Aspirin 81 MG MG MG Atenolol Atenolol No Atenolol 100 MG 100 MG 100 MG Furosemide Furosemide No 1{table QD Furosemide 20 MG 20 MG t} 20 MG Simvastatin Simvastatin No Simvastati 40 MG 40 MG n 40 MG Atenolol Atenolol No QD Atenolol 100 MG 100 MG 100 MG Vitamin D3 Vitamin D3 No 1{capsu Vitamin D3 19748 UNIT 61839 UNIT le} 30771 UNIT Simvastatin Simvastatin No 1{table QD Simvastati 40 MG 40 MG t_in_th n 40 MG e_eveni ng} Clopidogrel Clopidogrel No 1{table QD Clopidogre Bisulfate Bisulfate t} l 75 MG 75 MG Bisulfate 75 MG Synthroid Synthroid No QD Synthroid 25 MCG 25 MCG 25 MCG Vitamin D3 Vitamin D3 No 1{capsu Vitamin D3 57897 UNIT 62585 UNIT le} 71135 UNIT Venlafaxine Venlafaxine No 1{capsu QD Venlafaxin HCl ER 75 HCl ER 75 le_with e HCl ER MG MG _food} 75 MG Venlafaxine Venlafaxine No QD Venlafaxin HCl ER 150 HCl ER 150 e HCl ER MG MG 150 MG Aspirin 81 Aspirin 81 No Aspirin 81 MG MG MG NexIUM 40 NexIUM 40 No NexIUM 40 MG MG MG Aspirin Low Aspirin Low No Aspirin Dose 81 MG Dose 81 MG Low Dose 81 MG Venlafaxine Venlafaxine No QD Venlafaxin HCl ER 150 HCl ER 150 e HCl ER MG MG 150 MG ProAir HFA ProAir HFA No 2{puffs QID ProAir HFA 108 (90 108 (90 _as_nee 108 (90 Base) Base) ded} Base) MCG/ACT MCG/ACT MCG/ACT Trelegy Trelegy No 1{puff} QD Trelegy Ellipta Ellipta Ellipta 100-62.5-25 100-62.5-25 100-62.5-2 MCG/INH MCG/INH 5 MCG/INH HYDROcodone HYDROcodone No 1{table QID HYDROcodon -Acetaminop -Acetaminop t_as_ne e-Acetamin hen 5-325 hen 5-325 eded} ophen MG MG 5-325 MG Gabapentin Gabapentin No Gabapentin 100 MG 100 MG 100 MG Linzess 145 Linzess 145 No 1{capsu QD Linzess mcg mcg le} 145 mcg Spironolact Spironolact No 1{table QD Spironolac one 25 MG one 25 MG t} tone 25 MG Zofran 4 MG Zofran 4 MG No 1{table QD Zofran 4 t_as_ne MG eded} HYDROcodone HYDROcodone No 1{table QD HYDROcodon -Acetaminop -Acetaminop t} e-Acetamin hen 5-325 hen 5-325 ophen MG MG 5-325 MG Levothyroxi Levothyroxi No Levothyrox ne Sodium ne Sodium ine Sodium 50 MCG 50 MCG 50 MCG Synthroid Synthroid No QD Synthroid 25 MCG 25 MCG 25 MCG Aspirin 81 Aspirin 81 No Aspirin 81 MG MG MG HYDROcodone HYDROcodone No 1{table QID HYDROcodon -Acetaminop -Acetaminop t_as_ne e-Acetamin hen 5-325 hen 5-325 eded} ophen MG MG 5-325 MG Furosemide Furosemide No 1{table QD Furosemide 20 MG 20 MG t} 20 MG Simvastatin Simvastatin No Simvastati 40 MG 40 MG n 40 MG Synthroid Synthroid No QD Synthroid 25 MCG 25 MCG 25 MCG Vitamin D3 Vitamin D3 No 1{capsu Vitamin D3 71560 UNIT 06496 UNIT le} 74261 UNIT Simvastatin Simvastatin No 1{table QD Simvastati 40 MG 40 MG t_in_th n 40 MG e_eveni ng} Clopidogrel Clopidogrel No 1{table QD Clopidogre Bisulfate Bisulfate t} l 75 MG 75 MG Bisulfate 75 MG Venlafaxine Venlafaxine No 1{capsu QD Venlafaxin HCl ER 75 HCl ER 75 le_with e HCl ER MG MG _food} 75 MG Gabapentin Gabapentin No Gabapentin 100 MG 100 MG 100 MG Venlafaxine Venlafaxine No QD Venlafaxin HCl ER 150 HCl ER 150 e HCl ER MG MG 150 MG Venlafaxine Venlafaxine No QD Venlafaxin HCl ER 150 HCl ER 150 e HCl ER MG MG 150 MG NexIUM 40 NexIUM 40 No NexIUM 40 MG MG MG Aspirin Low Aspirin Low No Aspirin Dose 81 MG Dose 81 MG Low Dose 81 MG Vitamin D3 Vitamin D3 No 1{capsu Vitamin D3 81144 UNIT 55899 UNIT le} 11496 UNIT ProAir HFA ProAir HFA No 2{puffs QID ProAir HFA 108 (90 108 (90 _as_nee 108 (90 Base) Base) ded} Base) MCG/ACT MCG/ACT MCG/ACT Trelegy Trelegy No 1{puff} QD Trelegy Ellipta Ellipta Ellipta 100-62.5-25 100-62.5-25 100-62.5-2 MCG/INH MCG/INH 5 MCG/INH Aspirin 81 Aspirin 81 No Aspirin 81 MG MG MG Atenolol Atenolol No Atenolol 100 MG 100 MG 100 MG Linzess 145 Linzess 145 No 1{capsu QD Linzess mcg mcg le} 145 mcg Spironolact Spironolact No 1{table QD Spironolac one 25 MG one 25 MG t} tone 25 MG Zofran 4 MG Zofran 4 MG No 1{table QD Zofran 4 t_as_ne MG eded} HYDROcodone HYDROcodone No 1{table QD HYDROcodon -Acetaminop -Acetaminop t} e-Acetamin hen 5-325 hen 5-325 ophen MG MG 5-325 MG Levothyroxi Levothyroxi No Levothyrox ne Sodium ne Sodium ine Sodium 50 MCG 50 MCG 50 MCG Levothyroxi Levothyroxi No Levothyrox ne Sodium ne Sodium ine Sodium 50 MCG 50 MCG 50 MCG Linzess 145 Linzess 145 No 1{capsu QD Linzess mcg mcg le} 145 mcg Synthroid Synthroid No QD Synthroid 25 MCG 25 MCG 25 MCG Zofran 4 MG Zofran 4 MG No 1{table QD Zofran 4 t_as_ne MG eded} Vitamin D3 Vitamin D3 No 1{capsu Vitamin D3 89373 UNIT 85103 UNIT le} 86082 UNIT Spironolact Spironolact No 1{table QD Spironolac one 25 MG one 25 MG t} tone 25 MG Venlafaxine Venlafaxine No QD Venlafaxin HCl ER 150 HCl ER 150 e HCl ER MG MG 150 MG HYDROcodone HYDROcodone No 1{table QD HYDROcodon -Acetaminop -Acetaminop t} e-Acetamin hen 5-325 hen 5-325 ophen MG MG 5-325 MG Simvastatin Simvastatin No 1{table QD Simvastati 40 MG 40 MG t_in_ n 40 MG e_eveni ng} Vitamin D3 Vitamin D3 No 1{capsu Vitamin D3 26977 UNIT 65134 UNIT le} 36707 UNIT Clopidogrel Clopidogrel No 1{table QD Clopidogre Bisulfate Bisulfate t} l 75 MG 75 MG Bisulfate 75 MG Venlafaxine Venlafaxine No QD Venlafaxin HCl ER 150 HCl ER 150 e HCl ER MG MG 150 MG Simvastatin Simvastatin No Simvastati 40 MG 40 MG n 40 MG Aspirin 81 Aspirin 81 No Aspirin 81 MG MG MG NexIUM 40 NexIUM 40 No NexIUM 40 MG MG MG ProAir HFA ProAir HFA No 2{puffs QID ProAir HFA 108 (90 108 (90 _as_nee 108 (90 Base) Base) ded} Base) MCG/ACT MCG/ACT MCG/ACT Furosemide Furosemide No 1{table QD Furosemide 20 MG 20 MG t} 20 MG Atenolol Atenolol No Atenolol 100 MG 100 MG 100 MG Synthroid Synthroid No QD Synthroid 25 MCG 25 MCG 25 MCG Trelegy Trelegy No 1{puff} QD Trelegy Ellipta Ellipta Ellipta 100-62.5-25 100-62.5-25 100-62.5-2 MCG/INH MCG/INH 5 MCG/INH Gabapentin Gabapentin No Gabapentin 100 MG 100 MG 100 MG Venlafaxine Venlafaxine No 1{capsu QD Venlafaxin HCl ER 75 HCl ER 75 le_with e HCl ER MG MG _food} 75 MG Aspirin Low Aspirin Low No Aspirin Dose 81 MG Dose 81 MG Low Dose 81 MG HYDROcodone HYDROcodone No 1{table QID HYDROcodon -Acetaminop -Acetaminop t_as_ne e-Acetamin hen 5-325 hen 5-325 eded} ophen MG MG 5-325 MG Aspirin 81 Aspirin 81 No Aspirin 81 MG MG MG Levothyroxi Levothyroxi No Levothyrox ne Sodium ne Sodium ine Sodium 50 MCG 50 MCG 50 MCG HYDROcodone HYDROcodone No 1{table QD HYDROcodon -Acetaminop -Acetaminop t} e-Acetamin hen 5-325 hen 5-325 ophen MG MG 5-325 MG Synthroid Synthroid No QD Synthroid 25 MCG 25 MCG 25 MCG Linzess 145 Linzess 145 No 1{capsu QD Linzess mcg mcg le} 145 mcg Vitamin D3 Vitamin D3 No 1{capsu Vitamin D3 48433 UNIT 05087 UNIT le} 10734 UNIT Venlafaxine Venlafaxine No QD Venlafaxin HCl ER 150 HCl ER 150 e HCl ER MG MG 150 MG Spironolact Spironolact No 1{table QD Spironolac one 25 MG one 25 MG t} tone 25 MG Simvastatin Simvastatin No 1{table QD Simvastati 40 MG 40 MG t_in_th n 40 MG e_eveni ng} Clopidogrel Clopidogrel No 1{table QD Clopidogre Bisulfate Bisulfate t} l 75 MG 75 MG Bisulfate 75 MG Trelegy Trelegy No 1{puff} QD Trelegy Ellipta Ellipta Ellipta 100-62.5-25 100-62.5-25 100-62.5-2 MCG/INH MCG/INH 5 MCG/INH Gabapentin Gabapentin No Gabapentin 100 MG 100 MG 100 MG ProAir HFA ProAir HFA No 2{puffs QID ProAir HFA 108 (90 108 (90 _as_nee 108 (90 Base) Base) ded} Base) MCG/ACT MCG/ACT MCG/ACT Aspirin 81 Aspirin 81 No Aspirin 81 MG MG MG Atenolol Atenolol No Atenolol 100 MG 100 MG 100 MG Vitamin D3 Vitamin D3 No 1{capsu Vitamin D3 24617 UNIT 17062 UNIT le} 19887 UNIT Furosemide Furosemide No 1{table QD Furosemide 20 MG 20 MG t} 20 MG Zofran 4 MG Zofran 4 MG No 1{table QD Zofran 4 t_as_ne MG eded} Venlafaxine Venlafaxine No QD Venlafaxin HCl ER 150 HCl ER 150 e HCl ER MG MG 150 MG Simvastatin Simvastatin No Simvastati 40 MG 40 MG n 40 MG NexIUM 40 NexIUM 40 No NexIUM 40 MG MG MG Aspirin Low Aspirin Low No Aspirin Dose 81 MG Dose 81 MG Low Dose 81 MG HYDROcodone HYDROcodone No 1{table QID HYDROcodon -Acetaminop -Acetaminop t_as_ne e-Acetamin hen 5-325 hen 5-325 eded} ophen MG MG 5-325 MG Venlafaxine Venlafaxine No 1{capsu QD Venlafaxin HCl ER 75 HCl ER 75 le_with e HCl ER MG MG _food} 75 MG Aspirin 81 Aspirin 81 No Aspirin 81 MG MG MG Levothyroxi Levothyroxi No Levothyrox ne Sodium ne Sodium ine Sodium 25 MCG 25 MCG 25 MCG Trelegy Trelegy No 1{puff} QD Trelegy Ellipta Ellipta Ellipta 100-62.5-25 100-62.5-25 100-62.5-2 MCG/INH MCG/INH 5 MCG/INH Venlafaxine Venlafaxine No QD Venlafaxin HCl ER 150 HCl ER 150 e HCl ER MG MG 150 MG Clopidogrel Clopidogrel No 1{table QD Clopidogre Bisulfate Bisulfate t} l 75 MG 75 MG Bisulfate 75 MG HYDROcodone HYDROcodone No 1{table QD HYDROcodon -Acetaminop -Acetaminop t} e-Acetamin hen 5-325 hen 5-325 ophen MG MG 5-325 MG HYDROcodone HYDROcodone No 1{table QID HYDROcodon -Acetaminop -Acetaminop t_as_ne e-Acetamin hen 5-325 hen 5-325 eded} ophen MG MG 5-325 MG Vitamin D3 Vitamin D3 No 1{capsu Vitamin D3 06096 UNIT 96558 UNIT le} 16296 UNIT Levothyroxi Levothyroxi No Levothyrox ne Sodium ne Sodium ine Sodium 50 MCG 50 MCG 50 MCG Aspirin 81 Aspirin 81 No Aspirin 81 MG MG MG Simvastatin Simvastatin No Simvastati 40 MG 40 MG n 40 MG Atenolol Atenolol No Atenolol 100 MG 100 MG 100 MG Venlafaxine Venlafaxine No 1{capsu QD Venlafaxin HCl ER 75 HCl ER 75 le_with e HCl ER MG MG _food} 75 MG NexIUM 40 NexIUM 40 No NexIUM 40 MG MG MG Simvastatin Simvastatin No 1{table QD Simvastati 40 MG 40 MG t_in_th n 40 MG e_eveni ng} ProAir HFA ProAir HFA No 2{puffs QID ProAir HFA 108 (90 108 (90 _as_nee 108 (90 Base) Base) ded} Base) MCG/ACT MCG/ACT MCG/ACT Vitamin D3 Vitamin D3 No 1{capsu Vitamin D3 53175 UNIT 55239 UNIT le} 19108 UNIT Furosemide Furosemide No 1{table QD Furosemide 20 MG 20 MG t} 20 MG Spironolact Spironolact No 1{table QD Spironolac one 25 MG one 25 MG t} tone 25 MG Synthroid Synthroid No QD Synthroid 25 MCG 25 MCG 25 MCG Aspirin 81 Aspirin 81 No Aspirin 81 MG MG MG Levothyroxi Levothyroxi No Levothyrox ne Sodium ne Sodium ine Sodium 25 MCG 25 MCG 25 MCG Aspirin Low Aspirin Low No Aspirin Dose 81 MG Dose 81 MG Low Dose 81 MG Linzess 145 Linzess 145 No 1{capsu QD Linzess mcg mcg le} 145 mcg Zofran 4 MG Zofran 4 MG No 1{table QD Zofran 4 t_as_ne MG eded} Gabapentin Gabapentin No Gabapentin 100 MG 100 MG 100 MG Venlafaxine Venlafaxine No QD Venlafaxin HCl ER 150 HCl ER 150 e HCl ER MG MG 150 MG Vitamin D3 Vitamin D3 No 1{capsu Vitamin D3 00188 UNIT 70280 UNIT le} 55746 UNIT Zofran 4 MG Zofran 4 MG No 1{table TID Zofran 4 t_as_ne MG eded} Zofran 4 MG Zofran 4 MG No 1{table QD Zofran 4 t_as_ne MG eded} Levothyroxi Levothyroxi No Levothyrox ne Sodium ne Sodium ine Sodium 25 MCG 25 MCG 25 MCG Aspirin Low Aspirin Low No Aspirin Dose 81 MG Dose 81 MG Low Dose 81 MG Venlafaxine Venlafaxine No QD Venlafaxin HCl ER 150 HCl ER 150 e HCl ER MG MG 150 MG Venlafaxine Venlafaxine No QD Venlafaxin HCl ER 150 HCl ER 150 e HCl ER MG MG 150 MG Aspirin 81 Aspirin 81 No Aspirin 81 MG MG MG Simvastatin Simvastatin No 1{table QD Simvastati 40 MG 40 MG t_in_th n 40 MG e_eveni ng} Vitamin D3 Vitamin D3 No 1{capsu Vitamin D3 70014 UNIT 52187 UNIT le} 03828 UNIT Synthroid Synthroid No QD Synthroid 25 MCG 25 MCG 25 MCG Levothyroxi Levothyroxi No Levothyrox ne Sodium ne Sodium ine Sodium 50 MCG 50 MCG 50 MCG Hydrocodone Hydrocodone No 1{table QID Hydrocodon -Acetaminop -Acetaminop t_as_ne e-Acetamin hen 5-325 hen 5-325 eded} ophen MG MG 5-325 MG NexIUM 40 NexIUM 40 No NexIUM 40 MG MG MG Simvastatin Simvastatin No Simvastati 40 MG 40 MG n 40 MG HYDROcodone HYDROcodone No 1{table QID HYDROcodon -Acetaminop -Acetaminop t_as_ne e-Acetamin hen 5-325 hen 5-325 eded} ophen MG MG 5-325 MG Aspirin 81 Aspirin 81 No Aspirin 81 MG MG MG ProAir HFA ProAir HFA No 2{puffs QID ProAir HFA 108 (90 108 (90 _as_nee 108 (90 Base) Base) ded} Base) MCG/ACT MCG/ACT MCG/ACT Venlafaxine Venlafaxine No 1{capsu QD Venlafaxin HCl ER 75 HCl ER 75 le_with e HCl ER MG MG _food} 75 MG Gabapentin Gabapentin No Gabapentin 100 MG 100 MG 100 MG Spironolact Spironolact No 1{table QD Spironolac one 25 MG one 25 MG t} tone 25 MG Atenolol Atenolol No Atenolol 100 MG 100 MG 100 MG HYDROcodone HYDROcodone No 1{table QD HYDROcodon -Acetaminop -Acetaminop t} e-Acetamin hen 5-325 hen 5-325 ophen MG MG 5-325 MG Spironolact Spironolact No 1{table QD Spironolac one 25 MG one 25 MG t} tone 25 MG Trelegy Trelegy No 1{puff} QD Trelegy Ellipta Ellipta Ellipta 100-62.5-25 100-62.5-25 100-62.5-2 MCG/INH MCG/INH 5 MCG/INH Atenolol Atenolol No QD Atenolol 100 MG 100 MG 100 MG Clopidogrel Clopidogrel No 1{table QD Clopidogre Bisulfate Bisulfate t} l 75 MG 75 MG Bisulfate 75 MG Furosemide Furosemide No 1{table QD Furosemide 20 MG 20 MG t} 20 MG Linzess 145 Linzess 145 No 1{capsu QD Linzess mcg mcg le} 145 mcg HYDROcodone HYDROcodone No 1{table QD HYDROcodon -Acetaminop -Acetaminop t} e-Acetamin hen 5-325 hen 5-325 ophen MG MG 5-325 MG Levothyroxi Levothyroxi No Levothyrox ne Sodium ne Sodium ine Sodium 50 MCG 50 MCG 50 MCG Linzess 145 Linzess 145 No 1{capsu QD Linzess mcg mcg le} 145 mcg Atenolol Atenolol No Atenolol 100 MG 100 MG 100 MG ProAir HFA ProAir HFA No 2{puffs QID ProAir HFA 108 (90 108 (90 _as_nee 108 (90 Base) Base) ded} Base) MCG/ACT MCG/ACT MCG/ACT Simvastatin Simvastatin No Simvastati 40 MG 40 MG n 40 MG Synthroid Synthroid No QD Synthroid 25 MCG 25 MCG 25 MCG Levothyroxi Levothyroxi No Levothyrox ne Sodium ne Sodium ine Sodium 25 MCG 25 MCG 25 MCG Synthroid Synthroid No QD Synthroid 25 MCG 25 MCG 25 MCG Zofran 4 MG Zofran 4 MG No 1{table QD Zofran 4 t_as_ne MG eded} Trelegy Trelegy No 1{puff} QD Trelegy Ellipta Ellipta Ellipta 100-62.5-25 100-62.5-25 100-62.5-2 MCG/INH MCG/INH 5 MCG/INH Venlafaxine Venlafaxine No QD Venlafaxin HCl ER 150 HCl ER 150 e HCl ER MG MG 150 MG Gabapentin Gabapentin No Gabapentin 100 MG 100 MG 100 MG Venlafaxine Venlafaxine No QD Venlafaxin HCl ER 150 HCl ER 150 e HCl ER MG MG 150 MG Vitamin D3 Vitamin D3 No 1{capsu Vitamin D3 17993 UNIT 21384 UNIT le} 95373 UNIT Vitamin D3 Vitamin D3 No 1{capsu Vitamin D3 42386 UNIT 71839 UNIT le} 96787 UNIT NexIUM 40 NexIUM 40 No NexIUM 40 MG MG MG Aspirin 81 Aspirin 81 No Aspirin 81 MG MG MG Spironolact Spironolact No 1{table QD Spironolac one 25 MG one 25 MG t} tone 25 MG Gabapentin Gabapentin No Gabapentin 100 MG 100 MG 100 MG Furosemide Furosemide No 1{table QD Furosemide 20 MG 20 MG t} 20 MG Clopidogrel Clopidogrel No 1{table QD Clopidogre Bisulfate Bisulfate t} l 75 MG 75 MG Bisulfate 75 MG HYDROcodone HYDROcodone No 1{table QID HYDROcodon -Acetaminop -Acetaminop t_as_ne e-Acetamin hen 5-325 hen 5-325 eded} ophen MG MG 5-325 MG Aspirin 81 Aspirin 81 No Aspirin 81 MG MG MG Simvastatin Simvastatin No 1{table QD Simvastati 40 MG 40 MG t_in_th n 40 MG e_eveni ng} Venlafaxine Venlafaxine No 1{capsu QD Venlafaxin HCl ER 75 HCl ER 75 le_with e HCl ER MG MG _food} 75 MG Aspirin Low Aspirin Low No Aspirin Dose 81 MG Dose 81 MG Low Dose 81 MG Atenolol Atenolol No QD Atenolol 100 MG 100 MG 100 MG HYDROcodone HYDROcodone No 1{table QD HYDROcodon -Acetaminop -Acetaminop t} e-Acetamin hen 5-325 hen 5-325 ophen MG MG 5-325 MG Simvastatin Simvastatin No 1{table QD Simvastati 40 MG 40 MG t_in_th n 40 MG e_eveni ng} Levothyroxi Levothyroxi No Levothyrox ne Sodium ne Sodium ine Sodium 25 MCG 25 MCG 25 MCG Linzess 145 Linzess 145 No 1{capsu QD Linzess mcg mcg le} 145 mcg Levothyroxi Levothyroxi No Levothyrox ne Sodium ne Sodium ine Sodium 50 MCG 50 MCG 50 MCG ProAir HFA ProAir HFA No 2{puffs QID ProAir HFA 108 (90 108 (90 _as_nee 108 (90 Base) Base) ded} Base) MCG/ACT MCG/ACT MCG/ACT Synthroid Synthroid No QD Synthroid 25 MCG 25 MCG 25 MCG Simvastatin Simvastatin No Simvastati 40 MG 40 MG n 40 MG Zofran 4 MG Zofran 4 MG No 1{table QD Zofran 4 t_as_ne MG eded} NexIUM 40 NexIUM 40 No NexIUM 40 MG MG MG Trelegy Trelegy No 1{puff} QD Trelegy Ellipta Ellipta Ellipta 100-62.5-25 100-62.5-25 100-62.5-2 MCG/INH MCG/INH 5 MCG/INH Furosemide Furosemide No 1{table QD Furosemide 20 MG 20 MG t} 20 MG Nexium 40 Nexium 40 No Nexium 40 MG MG MG Clopidogrel Clopidogrel No 1{table QD Clopidogre Bisulfate Bisulfate t} l 75 MG 75 MG Bisulfate 75 MG Vitamin D3 Vitamin D3 No 1{capsu Vitamin D3 29861 UNIT 55083 UNIT le} 09026 UNIT HYDROcodone HYDROcodone No 1{table QID HYDROcodon -Acetaminop -Acetaminop t_as_ne e-Acetamin hen 5-325 hen 5-325 eded} ophen MG MG 5-325 MG Venlafaxine Venlafaxine No QD Venlafaxin HCl ER 150 HCl ER 150 e HCl ER MG MG 150 MG Aspirin 81 Aspirin 81 No Aspirin 81 MG MG MG Spironolact Spironolact No 1{table QD Spironolac one 25 MG one 25 MG t} tone 25 MG Vitamin D3 Vitamin D3 No 1{capsu Vitamin D3 74350 UNIT 79074 UNIT le} 10539 UNIT Atenolol Atenolol No Atenolol 100 MG 100 MG 100 MG Venlafaxine Venlafaxine No QD Venlafaxin HCl ER 150 HCl ER 150 e HCl ER MG MG 150 MG Gabapentin Gabapentin No Gabapentin 100 MG 100 MG 100 MG Aspirin 81 Aspirin 81 No Aspirin 81 MG MG MG Venlafaxine Venlafaxine No 1{capsu QD Venlafaxin HCl ER 75 HCl ER 75 le_with e HCl ER MG MG _food} 75 MG Aspirin 81 Aspirin 81 No Aspirin 81 MG MG MG Simvastatin Simvastatin No 1{table QD Simvastati 40 MG 40 MG t_in_th n 40 MG e_eveni ng} Aspirin Low Aspirin Low No Aspirin Dose 81 MG Dose 81 MG Low Dose 81 MG HYDROcodone HYDROcodone No 1{table QD HYDROcodon -Acetaminop -Acetaminop t} e-Acetamin hen 5-325 hen 5-325 ophen MG MG 5-325 MG Simvastatin Simvastatin No Simvastati 40 MG 40 MG n 40 MG Atenolol Atenolol No QD Atenolol 100 MG 100 MG 100 MG Linzess 145 Linzess 145 No 1{capsu QD Linzess mcg mcg le} 145 mcg Levothyroxi Levothyroxi No Levothyrox ne Sodium ne Sodium ine Sodium 50 MCG 50 MCG 50 MCG ProAir HFA ProAir HFA No 2{puffs QID ProAir HFA 108 (90 108 (90 _as_nee 108 (90 Base) Base) ded} Base) MCG/ACT MCG/ACT MCG/ACT Synthroid Synthroid No QD Synthroid 25 MCG 25 MCG 25 MCG Levothyroxi Levothyroxi No Levothyrox ne Sodium ne Sodium ine Sodium 25 MCG 25 MCG 25 MCG Zofran 4 MG Zofran 4 MG No 1{table QD Zofran 4 t_as_ne MG eded} NexIUM 40 NexIUM 40 No NexIUM 40 MG MG MG Trelegy Trelegy No 1{puff} QD Trelegy Ellipta Ellipta Ellipta 100-62.5-25 100-62.5-25 100-62.5-2 MCG/INH MCG/INH 5 MCG/INH Furosemide Furosemide No 1{table QD Furosemide 20 MG 20 MG t} 20 MG Levothyroxi Levothyroxi No Levothyrox ne Sodium ne Sodium ine Sodium 50 MCG 50 MCG 50 MCG Clopidogrel Clopidogrel No 1{table QD Clopidogre Bisulfate Bisulfate t} l 75 MG 75 MG Bisulfate 75 MG Vitamin D3 Vitamin D3 No 1{capsu Vitamin D3 58786 UNIT 41425 UNIT le} 76178 UNIT HYDROcodone HYDROcodone No 1{table QID HYDROcodon -Acetaminop -Acetaminop t_as_ne e-Acetamin hen 5-325 hen 5-325 eded} ophen MG MG 5-325 MG Venlafaxine Venlafaxine No QD Venlafaxin HCl ER 150 HCl ER 150 e HCl ER MG MG 150 MG Aspirin 81 Aspirin 81 No Aspirin 81 MG MG MG Spironolact Spironolact No 1{table QD Spironolac one 25 MG one 25 MG t} tone 25 MG Vitamin D3 Vitamin D3 No 1{capsu Vitamin D3 63304 UNIT 52058 UNIT le} 61556 UNIT Atenolol Atenolol No Atenolol 100 MG 100 MG 100 MG Venlafaxine Venlafaxine No QD Venlafaxin HCl ER 150 HCl ER 150 e HCl ER MG MG 150 MG Gabapentin Gabapentin No Gabapentin 100 MG 100 MG 100 MG Clopidogrel Clopidogrel No 1{table QD Clopidogre Bisulfate Bisulfate t} l 75 MG 75 MG Bisulfate 75 MG Venlafaxine Venlafaxine No 1{capsu QD Venlafaxin HCl ER 75 HCl ER 75 le_with e HCl ER MG MG _food} 75 MG Aspirin 81 Aspirin 81 No Aspirin 81 MG MG MG Simvastatin Simvastatin No 1{table QD Simvastati 40 MG 40 MG t_in_th n 40 MG e_eveni ng} Aspirin Low Aspirin Low No Aspirin Dose 81 MG Dose 81 MG Low Dose 81 MG Vitamin D3 Vitamin D3 No 1{capsu Vitamin D3 84100 UNIT 44606 UNIT le} 97237 UNIT Venlafaxine Venlafaxine No QD Venlafaxin HCl ER 150 HCl ER 150 e HCl ER MG MG 150 MG Simvastatin Simvastatin No Simvastati 40 MG 40 MG n 40 MG Clopidogrel Clopidogrel No 1{table QD Clopidogre Bisulfate Bisulfate t} l 75 MG 75 MG Bisulfate 75 MG Venlafaxine Venlafaxine No QD Venlafaxin HCl ER 75 HCl ER 75 e HCl ER MG MG 75 MG HYDROcodone HYDROcodone No 1{table QID HYDROcodon -Acetaminop -Acetaminop t_as_ne e-Acetamin hen 5-325 hen 5-325 eded} ophen MG MG 5-325 MG Trelegy Trelegy No 1{puff} QD Trelegy Ellipta Ellipta Ellipta 100-62.5-25 100-62.5-25 100-62.5-2 MCG/INH MCG/INH 5 MCG/INH Aspirin 81 Aspirin 81 No Aspirin 81 MG MG MG Levothyroxi Levothyroxi No Levothyrox ne Sodium ne Sodium ine Sodium 25 MCG 25 MCG 25 MCG Venlafaxine Venlafaxine No QD Venlafaxin HCl ER 150 HCl ER 150 e HCl ER MG MG 150 MG Levothyroxi Levothyroxi No Levothyrox ne Sodium ne Sodium ine Sodium 50 MCG 50 MCG 50 MCG Zofran 4 MG Zofran 4 MG No 1{table QD Zofran 4 t_as_ne MG eded} Aspirin Low Aspirin Low No Aspirin Dose 81 MG Dose 81 MG Low Dose 81 MG Atenolol Atenolol No Atenolol 100 MG 100 MG 100 MG HYDROcodone HYDROcodone No 1{table QD HYDROcodon -Acetaminop -Acetaminop t} e-Acetamin hen 5-325 hen 5-325 ophen MG MG 5-325 MG Atenolol Atenolol No Atenolol 100 MG 100 MG 100 MG Venlafaxine Venlafaxine No 1{capsu QD Venlafaxin HCl ER 75 HCl ER 75 le_with e HCl ER MG MG _food} 75 MG ProAir HFA ProAir HFA No 2{puffs QID ProAir HFA 108 (90 108 (90 _as_nee 108 (90 Base) Base) ded} Base) MCG/ACT MCG/ACT MCG/ACT Synthroid Synthroid No QD Synthroid 25 MCG 25 MCG 25 MCG Linzess 145 Linzess 145 No 1{capsu QD Linzess mcg mcg le} 145 mcg Gabapentin Gabapentin No Gabapentin 100 MG 100 MG 100 MG Spironolact Spironolact No 1{table QD Spironolac one 25 MG one 25 MG t} tone 25 MG NexIUM 40 NexIUM 40 No NexIUM 40 MG MG MG Furosemide Furosemide No 1{table QD Furosemide 20 MG 20 MG t} 20 MG Aspirin 81 Aspirin 81 No Aspirin 81 MG MG MG Simvastatin Simvastatin No 1{table QD Simvastati 40 MG 40 MG t_in_th n 40 MG e_eveni ng} Aspirin 81 Aspirin 81 No Aspirin 81 MG MG MG Vitamin D3 Vitamin D3 No 1{capsu Vitamin D3 19088 UNIT 48674 UNIT le} 24585 UNIT Clopidogrel Clopidogrel No 1{table QD Clopidogre Bisulfate Bisulfate t} l 75 MG 75 MG Bisulfate 75 MG NexIUM 40 NexIUM 40 No NexIUM 40 MG MG MG Levothyroxi Levothyroxi No Levothyrox ne Sodium ne Sodium ine Sodium 50 MCG 50 MCG 50 MCG Vitamin D3 Vitamin D3 No 1{capsu Vitamin D3 89598 UNIT 07741 UNIT le} 27560 UNIT Trelegy Trelegy No 1{puff} QD Trelegy Ellipta Ellipta Ellipta 100-62.5-25 100-62.5-25 100-62.5-2 MCG/INH MCG/INH 5 MCG/INH ProAir HFA ProAir HFA No 2{puffs QID ProAir HFA 108 (90 108 (90 _as_nee 108 (90 Base) Base) ded} Base) MCG/ACT MCG/ACT MCG/ACT HYDROcodone HYDROcodone No 1{table QID HYDROcodon -Acetaminop -Acetaminop t_as_ne e-Acetamin hen 5-325 hen 5-325 eded} ophen MG MG 5-325 MG Aspirin 81 Aspirin 81 No Aspirin 81 MG MG MG Aspirin 81 Aspirin 81 No Aspirin 81 MG MG MG Levothyroxi Levothyroxi No Levothyrox ne Sodium ne Sodium ine Sodium 25 MCG 25 MCG 25 MCG Vitamin D3 Vitamin D3 No 1{capsu Vitamin D3 18444 UNIT 86048 UNIT le} 67347 UNIT ProAir HFA ProAir HFA No 2{puffs QID ProAir HFA 108 (90 108 (90 _as_nee 108 (90 Base) Base) ded} Base) MCG/ACT MCG/ACT MCG/ACT HYDROcodone HYDROcodone No 1{table QD HYDROcodon -Acetaminop -Acetaminop t} e-Acetamin hen 5-325 hen 5-325 ophen MG MG 5-325 MG Venlafaxine Venlafaxine No 1{capsu QD Venlafaxin HCl ER 75 HCl ER 75 le_with e HCl ER MG MG _food} 75 MG Venlafaxine Venlafaxine No QD Venlafaxin HCl ER 150 HCl ER 150 e HCl ER MG MG 150 MG Spironolact Spironolact No 1{table QD Spironolac one 25 MG one 25 MG t} tone 25 MG Furosemide Furosemide No 1{table QD Furosemide 20 MG 20 MG t} 20 MG Aspirin Low Aspirin Low No Aspirin Dose 81 MG Dose 81 MG Low Dose 81 MG Furosemide Furosemide No 1{table QD Furosemide 20 MG 20 MG t} 20 MG Zofran 4 MG Zofran 4 MG No 1{table QD Zofran 4 t_as_ne MG eded} Venlafaxine Venlafaxine No QD Venlafaxin HCl ER 150 HCl ER 150 e HCl ER MG MG 150 MG Linzess 145 Linzess 145 No 1{capsu QD Linzess mcg mcg le} 145 mcg Atenolol Atenolol No Atenolol 100 MG 100 MG 100 MG Synthroid Synthroid No QD Synthroid 25 MCG 25 MCG 25 MCG Simvastatin Simvastatin No Simvastati 40 MG 40 MG n 40 MG Gabapentin Gabapentin No Gabapentin 100 MG 100 MG 100 MG Trelegy Trelegy No 1{puff} QD Trelegy Ellipta Ellipta Ellipta 100-62.5-25 100-62.5-25 100-62.5-2 MCG/INH MCG/INH 5 MCG/INH Aspirin Low Aspirin Low No Aspirin Dose 81 MG Dose 81 MG Low Dose 81 MG Vitamin D3 Vitamin D3 No 1{capsu Vitamin D3 93866 UNIT 07359 UNIT le} 25353 UNIT NexIUM 40 NexIUM 40 No NexIUM 40 MG MG MG Zofran 4 MG Zofran 4 MG No 1{table QD Zofran 4 t_as_ne MG eded} Atenolol Atenolol No Atenolol 100 MG 100 MG 100 MG ProAir HFA ProAir HFA No 2{puffs QID ProAir HFA 108 (90 108 (90 _as_nee 108 (90 Base) Base) ded} Base) MCG/ACT MCG/ACT MCG/ACT HYDROcodone HYDROcodone No 1{table QD HYDROcodon -Acetaminop -Acetaminop t} e-Acetamin hen 5-325 hen 5-325 ophen MG MG 5-325 MG Clopidogrel Clopidogrel No 1{table QD Clopidogre Bisulfate Bisulfate t} l 75 MG 75 MG Bisulfate 75 MG Spironolact Spironolact No 1{table QD Spironolac one 25 MG one 25 MG t} tone 25 MG Linzess 145 Linzess 145 No 1{capsu QD Linzess mcg mcg le} 145 mcg Venlafaxine Venlafaxine No Venlafaxin HCl ER 150 HCl ER 150 e HCl ER MG MG 150 MG Simvastatin Simvastatin No Simvastati 40 MG 40 MG n 40 MG Aspirin 81 Aspirin 81 No Aspirin 81 MG MG MG Aspirin 81 Aspirin 81 No Aspirin 81 MG MG MG Levothyroxi Levothyroxi No Levothyrox ne Sodium ne Sodium ine Sodium 25 MCG 25 MCG 25 MCG Furosemide Furosemide No 1{table QD Furosemide 20 MG 20 MG t} 20 MG Trelegy Trelegy No 1{puff} QD Trelegy Ellipta Ellipta Ellipta 100-62.5-25 100-62.5-25 100-62.5-2 MCG/INH MCG/INH 5 MCG/INH Linzess 145 Linzess 145 No 1{capsu QD Linzess mcg mcg le} 145 mcg Venlafaxine Venlafaxine No 1{capsu QD Venlafaxin HCl ER 75 HCl ER 75 le_with e HCl ER MG MG _food} 75 MG Vitamin D3 Vitamin D3 No 1{capsu Vitamin D3 53888 UNIT 57119 UNIT le} 57322 UNIT Hydrocodone Hydrocodone No 1{table QD Hydrocodon -Acetaminop -Acetaminop t} e-Acetamin hen 5-325 hen 5-325 ophen MG MG 5-325 MG Gabapentin Gabapentin No Gabapentin 100 MG 100 MG 100 MG Levothyroxi Levothyroxi No Levothyrox ne Sodium ne Sodium ine Sodium 50 MCG 50 MCG 50 MCG Synthroid Synthroid No QD Synthroid 25 MCG 25 MCG 25 MCG HYDROcodone HYDROcodone No 1{table QID HYDROcodon -Acetaminop -Acetaminop t_as_ne e-Acetamin hen 5-325 hen 5-325 eded} ophen MG MG 5-325 MG Atenolol Atenolol No 1{table QD Atenolol 100 MG 100 MG t} 100 MG Nexium 24HR Nexium 24HR No 1{capsu QD Nexium 20 MG 20 MG le} 24HR 20 MG Aspirin Low Aspirin Low No Aspirin Dose 81 MG Dose 81 MG Low Dose 81 MG Clopidogrel Clopidogrel No 1{table QD Clopidogre Bisulfate Bisulfate t} l 75 MG 75 MG Bisulfate 75 MG Synthroid Synthroid No QD Synthroid 25 MCG 25 MCG 25 MCG Spironolact Spironolact No 1{table QD Spironolac one 25 MG one 25 MG t} tone 25 MG NexIUM 40 NexIUM 40 No NexIUM 40 MG MG MG Trelegy Trelegy No 1{puff} QD Trelegy Ellipta Ellipta Ellipta 100-62.5-25 100-62.5-25 100-62.5-2 MCG/INH MCG/INH 5 MCG/INH Aspirin 81 Aspirin 81 No Aspirin 81 MG MG MG HYDROcodone HYDROcodone No 1{table QD HYDROcodon -Acetaminop -Acetaminop t} e-Acetamin hen 5-325 hen 5-325 ophen MG MG 5-325 MG Venlafaxine Venlafaxine No Venlafaxin HCl ER 150 HCl ER 150 e HCl ER MG MG 150 MG Venlafaxine Venlafaxine No 1{capsu QD Venlafaxin HCl ER 75 HCl ER 75 le_with e HCl ER MG MG _food} 75 MG Atenolol Atenolol No Atenolol 100 MG 100 MG 100 MG Vitamin D3 Vitamin D3 No 1{capsu Vitamin D3 85643 UNIT 88642 UNIT le} 18297 UNIT Aspirin 81 Aspirin 81 No Aspirin 81 MG MG MG Levothyroxi Levothyroxi No Levothyrox ne Sodium ne Sodium ine Sodium 25 MCG 25 MCG 25 MCG Furosemide Furosemide No 1{table QD Furosemide 20 MG 20 MG t} 20 MG Levothyroxi Levothyroxi No Levothyrox ne Sodium ne Sodium ine Sodium 50 MCG 50 MCG 50 MCG HYDROcodone HYDROcodone No 1{table QID HYDROcodon -Acetaminop -Acetaminop t_as_ne e-Acetamin hen 5-325 hen 5-325 eded} ophen MG MG 5-325 MG ProAir HFA ProAir HFA No 2{puffs QID ProAir HFA 108 (90 108 (90 _as_nee 108 (90 Base) Base) ded} Base) MCG/ACT MCG/ACT MCG/ACT Simvastatin Simvastatin No Simvastati 40 MG 40 MG n 40 MG Aspirin Low Aspirin Low No Aspirin Dose 81 MG Dose 81 MG Low Dose 81 MG Vitamin D3 Vitamin D3 No 1{capsu Vitamin D3 73182 UNIT 47163 UNIT le} 43660 UNIT Gabapentin Gabapentin No Gabapentin 100 MG 100 MG 100 MG Zofran 4 MG Zofran 4 MG No 1{table QD Zofran 4 t_as_ne MG eded} Linzess 145 Linzess 145 No 1{capsu QD Linzess mcg mcg le} 145 mcg Aspirin 81 Aspirin 81 No Aspirin 81 MG MG MG Gabapentin Gabapentin No Gabapentin 100 MG 100 MG 100 MG Zofran 4 MG Zofran 4 MG No 1{table QD Zofran 4 t_as_ne MG eded} HYDROcodone HYDROcodone No 1{table QD HYDROcodon -Acetaminop -Acetaminop t} e-Acetamin hen 5-325 hen 5-325 ophen MG MG 5-325 MG Vitamin D3 Vitamin D3 No 1{capsu Vitamin D3 85122 UNIT 86879 UNIT le} 24227 UNIT NexIUM 40 NexIUM 40 No NexIUM 40 MG MG MG Vitamin D3 Vitamin D3 No 1{capsu Vitamin D3 08400 UNIT 53775 UNIT le} 07826 UNIT Furosemide Furosemide No 1{table QD Furosemide 20 MG 20 MG t} 20 MG Levothyroxi Levothyroxi No Levothyrox ne Sodium ne Sodium ine Sodium 25 MCG 25 MCG 25 MCG Atenolol Atenolol No Atenolol 100 MG 100 MG 100 MG HYDROcodone HYDROcodone No 1{table QID HYDROcodon -Acetaminop -Acetaminop t_as_ne e-Acetamin hen 5-325 hen 5-325 eded} ophen MG MG 5-325 MG Trelegy Trelegy No 1{puff} QD Trelegy Ellipta Ellipta Ellipta 100-62.5-25 100-62.5-25 100-62.5-2 MCG/INH MCG/INH 5 MCG/INH Levothyroxi Levothyroxi No Levothyrox ne Sodium ne Sodium ine Sodium 50 MCG 50 MCG 50 MCG Simvastatin Simvastatin No Simvastati 40 MG 40 MG n 40 MG Spironolact Spironolact No 1{table QD Spironolac one 25 MG one 25 MG t} tone 25 MG Linzess 145 Linzess 145 No 1{capsu QD Linzess mcg mcg le} 145 mcg Venlafaxine Venlafaxine No Venlafaxin HCl ER 150 HCl ER 150 e HCl ER MG MG 150 MG Synthroid Synthroid No QD Synthroid 25 MCG 25 MCG 25 MCG Aspirin 81 Aspirin 81 No Aspirin 81 MG MG MG Venlafaxine Venlafaxine No 1{capsu QD Venlafaxin HCl ER 75 HCl ER 75 le_with e HCl ER MG MG _food} 75 MG Aspirin Low Aspirin Low No Aspirin Dose 81 MG Dose 81 MG Low Dose 81 MG ProAir HFA ProAir HFA No 2{puffs QID ProAir HFA 108 (90 108 (90 _as_nee 108 (90 Base) Base) ded} Base) MCG/ACT MCG/ACT MCG/ACT Clopidogrel Clopidogrel No 1{table QD Clopidogre Bisulfate Bisulfate t} l 75 MG 75 MG Bisulfate 75 MG Zofran 4 MG Zofran 4 MG No 1{table QD Zofran 4 t_as_ne MG eded} Levothyroxi Levothyroxi No Levothyrox ne Sodium ne Sodium ine Sodium 25 MCG 25 MCG 25 MCG Vitamin D3 Vitamin D3 No 1{capsu Vitamin D3 42655 UNIT 86991 UNIT le} 89706 UNIT Aspirin 81 Aspirin 81 No Aspirin 81 MG MG MG NexIUM 40 NexIUM 40 No NexIUM 40 MG MG MG Aspirin Low Aspirin Low No Aspirin Dose 81 MG Dose 81 MG Low Dose 81 MG Aspirin 81 Aspirin 81 No Aspirin 81 MG MG MG Venlafaxine Venlafaxine No Venlafaxin HCl ER 150 HCl ER 150 e HCl ER MG MG 150 MG Gabapentin Gabapentin No Gabapentin 100 MG 100 MG 100 MG Vitamin D3 Vitamin D3 No 1{capsu Vitamin D3 00230 UNIT 48017 UNIT le} 76177 UNIT Levothyroxi Levothyroxi No Levothyrox ne Sodium ne Sodium ine Sodium 50 MCG 50 MCG 50 MCG Synthroid Synthroid No QD Synthroid 25 MCG 25 MCG 25 MCG ProAir HFA ProAir HFA No 2{puffs QID ProAir HFA 108 (90 108 (90 _as_nee 108 (90 Base) Base) ded} Base) MCG/ACT MCG/ACT MCG/ACT HYDROcodone HYDROcodone No 1{table QD HYDROcodon -Acetaminop -Acetaminop t} e-Acetamin hen 5-325 hen 5-325 ophen MG MG 5-325 MG HYDROcodone HYDROcodone No 1{table QID HYDROcodon -Acetaminop -Acetaminop t_as_ne e-Acetamin hen 5-325 hen 5-325 eded} ophen MG MG 5-325 MG Simvastatin Simvastatin No Simvastati 40 MG 40 MG n 40 MG Spironolact Spironolact No 1{table QD Spironolac one 25 MG one 25 MG t} tone 25 MG Linzess 145 Linzess 145 No 1{capsu QD Linzess mcg mcg le} 145 mcg Trelegy Trelegy No 1{puff} QD Trelegy Ellipta Ellipta Ellipta 100-62.5-25 100-62.5-25 100-62.5-2 MCG/INH MCG/INH 5 MCG/INH Furosemide Furosemide No 1{table QD Furosemide 20 MG 20 MG t} 20 MG Atenolol Atenolol No Atenolol 100 MG 100 MG 100 MG Venlafaxine Venlafaxine No 1{capsu QD Venlafaxin HCl ER 75 HCl ER 75 le_with e HCl ER MG MG _food} 75 MG Clopidogrel Clopidogrel No 1{table QD Clopidogre Bisulfate Bisulfate t} l 75 MG 75 MG Bisulfate 75 MG Aspirin 81 Aspirin 81 No Aspirin 81 MG MG MG Zofran 4 MG Zofran 4 MG No 1{table QD Zofran 4 t_as_ne MG eded} Levothyroxi Levothyroxi No Levothyrox ne Sodium ne Sodium ine Sodium 25 MCG 25 MCG 25 MCG Vitamin D3 Vitamin D3 No 1{capsu Vitamin D3 55710 UNIT 29274 UNIT le} 00593 UNIT Aspirin 81 Aspirin 81 No Aspirin 81 MG MG MG NexIUM 40 NexIUM 40 No NexIUM 40 MG MG MG Nexium 40 Nexium 40 No Nexium 40 MG MG MG ProAir HFA ProAir HFA No 2{puffs QID ProAir HFA 108 (90 108 (90 _as_nee 108 (90 Base) Base) ded} Base) MCG/ACT MCG/ACT MCG/ACT Aspirin 81 Aspirin 81 No Aspirin 81 MG MG MG HYDROcodone HYDROcodone No 1{table QD HYDROcodon -Acetaminop -Acetaminop t} e-Acetamin hen 5-325 hen 5-325 ophen MG MG 5-325 MG Venlafaxine Venlafaxine No Venlafaxin HCl ER 150 HCl ER 150 e HCl ER MG MG 150 MG Gabapentin Gabapentin No Gabapentin 100 MG 100 MG 100 MG Vitamin D3 Vitamin D3 No 1{capsu Vitamin D3 65935 UNIT 53933 UNIT le} 81119 UNIT Levothyroxi Levothyroxi No Levothyrox ne Sodium ne Sodium ine Sodium 50 MCG 50 MCG 50 MCG Linzess 145 Linzess 145 No 1{capsu QD Linzess mcg mcg le} 145 mcg Synthroid Synthroid No QD Synthroid 25 MCG 25 MCG 25 MCG Venlafaxine Venlafaxine No 1{capsu QD Venlafaxin HCl ER 75 HCl ER 75 le_with e HCl ER MG MG _food} 75 MG Simvastatin Simvastatin No 1{table QD Simvastati 40 MG 40 MG t_in_th n 40 MG e_eveni ng} HYDROcodone HYDROcodone No 1{table QID HYDROcodon -Acetaminop -Acetaminop t_as_ne e-Acetamin hen 5-325 hen 5-325 eded} ophen MG MG 5-325 MG Simvastatin Simvastatin No Simvastati 40 MG 40 MG n 40 MG Aspirin Low Aspirin Low No Aspirin Dose 81 MG Dose 81 MG Low Dose 81 MG traZODone traZODone No traZODone HCl 100 MG HCl 100 MG HCl 100 MG Trelegy Trelegy No 1{puff} QD Trelegy Ellipta Ellipta Ellipta 100-62.5-25 100-62.5-25 100-62.5-2 MCG/INH MCG/INH 5 MCG/INH Furosemide Furosemide No 1{table QD Furosemide 20 MG 20 MG t} 20 MG Atenolol Atenolol No Atenolol 100 MG 100 MG 100 MG Spironolact Spironolact No 1{table QD Spironolac one 25 MG one 25 MG t} tone 25 MG Clopidogrel Clopidogrel No 1{table QD Clopidogre Bisulfate Bisulfate t} l 75 MG 75 MG Bisulfate 75 MG Aspirin 81 Aspirin 81 No Aspirin 81 MG MG MG Hydrocodone Hydrocodone No 1{table QID Hydrocodon -Acetaminop -Acetaminop t_as_ne e-Acetamin hen 5-325 hen 5-325 eded} ophen MG MG 5-325 MG Hydrocodone Hydrocodone No 1{table QD Hydrocodon -Acetaminop -Acetaminop t} e-Acetamin hen 5-325 hen 5-325 ophen MG MG 5-325 MG ProAir HFA ProAir HFA No 2{puffs QID ProAir HFA 108 (90 108 (90 _as_nee 108 (90 Base) Base) ded} Base) MCG/ACT MCG/ACT MCG/ACT Vitamin D3 Vitamin D3 No 1{capsu Vitamin D3 46968 UNIT 26119 UNIT le} 85378 UNIT Linzess 145 Linzess 145 No 1{capsu QD Linzess mcg mcg le} 145 mcg Clopidogrel Clopidogrel No 1{table QD Clopidogre Bisulfate Bisulfate t} l 75 MG 75 MG Bisulfate 75 MG Levothyroxi Levothyroxi No Levothyrox ne Sodium ne Sodium ine Sodium 50 MCG 50 MCG 50 MCG Venlafaxine Venlafaxine No Venlafaxin HCl ER 150 HCl ER 150 e HCl ER MG MG 150 MG Zofran 4 MG Zofran 4 MG No 1{table QD Zofran 4 t_as_ne MG eded} HYDROcodone HYDROcodone No 1{table QD HYDROcodon -Acetaminop -Acetaminop t} e-Acetamin hen 5-325 hen 5-325 ophen MG MG 5-325 MG Simvastatin Simvastatin No Simvastati 40 MG 40 MG n 40 MG Venlafaxine Venlafaxine No 1{capsu QD Venlafaxin HCl ER 75 HCl ER 75 le_with e HCl ER MG MG _food} 75 MG Venlafaxine Venlafaxine No 1{capsu QD Venlafaxin HCl ER 75 HCl ER 75 le_with e HCl ER MG MG _food} 75 MG HYDROcodone HYDROcodone No 1{table QID HYDROcodon -Acetaminop -Acetaminop t_as_ne e-Acetamin hen 5-325 hen 5-325 eded} ophen MG MG 5-325 MG Furosemide Furosemide No 1{table QD Furosemide 20 MG 20 MG t} 20 MG Synthroid Synthroid No QD Synthroid 25 MCG 25 MCG 25 MCG Vitamin D3 Vitamin D3 No 1{capsu Vitamin D3 80578 UNIT 50973 UNIT le} 99723 UNIT Aspirin Low Aspirin Low No Aspirin Dose 81 MG Dose 81 MG Low Dose 81 MG ProAir HFA ProAir HFA No 2{puffs QID ProAir HFA 108 (90 108 (90 _as_nee 108 (90 Base) Base) ded} Base) MCG/ACT MCG/ACT MCG/ACT Levothyroxi Levothyroxi No Levothyrox ne Sodium ne Sodium ine Sodium 25 MCG 25 MCG 25 MCG Spironolact Spironolact No 1{table QD Spironolac one 25 MG one 25 MG t} tone 25 MG traZODone traZODone No traZODone HCl 100 MG HCl 100 MG HCl 100 MG Synthroid Synthroid No QD Synthroid 25 MCG 25 MCG 25 MCG Trelegy Trelegy No 1{puff} QD Trelegy Ellipta Ellipta Ellipta 100-62.5-25 100-62.5-25 100-62.5-2 MCG/INH MCG/INH 5 MCG/INH Gabapentin Gabapentin No Gabapentin 100 MG 100 MG 100 MG Atenolol Atenolol No Atenolol 100 MG 100 MG 100 MG Aspirin 81 Aspirin 81 No Aspirin 81 MG MG MG NexIUM 40 NexIUM 40 No NexIUM 40 MG MG MG Aspirin 81 Aspirin 81 No Aspirin 81 MG MG MG Gabapentin Gabapentin No Gabapentin 100 MG 100 MG 100 MG Atenolol Atenolol No Atenolol 100 MG 100 MG 100 MG Spironolact Spironolact No 1{table QD Spironolac one 25 MG one 25 MG t} tone 25 MG Linzess 145 Linzess 145 No 1{capsu QD Linzess mcg mcg le} 145 mcg Vitamin D3 Vitamin D3 No 1{capsu Vitamin D3 95247 UNIT 18916 UNIT le} 05262 UNIT Linzess 145 Linzess 145 No 1{capsu QD Linzess mcg mcg le} 145 mcg traZODone traZODone No traZODone HCl 100 MG HCl 100 MG HCl 100 MG Levothyroxi Levothyroxi No Levothyrox ne Sodium ne Sodium ine Sodium 50 MCG 50 MCG 50 MCG Venlafaxine Venlafaxine No Venlafaxin HCl ER 150 HCl ER 150 e HCl ER MG MG 150 MG Zofran 4 MG Zofran 4 MG No 1{table QD Zofran 4 t_as_ne MG eded} HYDROcodone HYDROcodone No 1{table QD HYDROcodon -Acetaminop -Acetaminop t} e-Acetamin hen 5-325 hen 5-325 ophen MG MG 5-325 MG Simvastatin Simvastatin No Simvastati 40 MG 40 MG n 40 MG ProAir HFA ProAir HFA No 2{puffs QID ProAir HFA 108 (90 108 (90 _as_nee 108 (90 Base) Base) ded} Base) MCG/ACT MCG/ACT MCG/ACT Nexium 24HR Nexium 24HR No 1{capsu QD Nexium 20 MG 20 MG le} 24HR 20 MG Venlafaxine Venlafaxine No 1{capsu QD Venlafaxin HCl ER 75 HCl ER 75 le_with e HCl ER MG MG _food} 75 MG Furosemide Furosemide No 1{table QD Furosemide 20 MG 20 MG t} 20 MG Trelegy Trelegy No 1{puff} QD Trelegy Ellipta Ellipta Ellipta 100-62.5-25 100-62.5-25 100-62.5-2 MCG/INH MCG/INH 5 MCG/INH Vitamin D3 Vitamin D3 No 1{capsu Vitamin D3 78121 UNIT 16961 UNIT le} 53864 UNIT Gabapentin Gabapentin No Gabapentin 100 MG 100 MG 100 MG Synthroid Synthroid No QD Synthroid 25 MCG 25 MCG 25 MCG Levothyroxi Levothyroxi No Levothyrox ne Sodium ne Sodium ine Sodium 25 MCG 25 MCG 25 MCG Spironolact Spironolact No 1{table QD Spironolac one 25 MG one 25 MG t} tone 25 MG Aspirin Low Aspirin Low No Aspirin Dose 81 MG Dose 81 MG Low Dose 81 MG Clopidogrel Clopidogrel No 1{table QD Clopidogre Bisulfate Bisulfate t} l 75 MG 75 MG Bisulfate 75 MG Levothyroxi Levothyroxi No Levothyrox ne Sodium ne Sodium ine Sodium 50 MCG 50 MCG 50 MCG HYDROcodone HYDROcodone No 1{table QID HYDROcodon -Acetaminop -Acetaminop t_as_ne e-Acetamin hen 5-325 hen 5-325 eded} ophen MG MG 5-325 MG Atenolol Atenolol No Atenolol 100 MG 100 MG 100 MG Aspirin 81 Aspirin 81 No Aspirin 81 MG MG MG NexIUM 40 NexIUM 40 No NexIUM 40 MG MG MG Aspirin 81 Aspirin 81 No Aspirin 81 MG MG MG Furosemide Furosemide No 1{table QD Furosemide 20 MG 20 MG t} 20 MG Trelegy Trelegy No 1{puff} QD Trelegy Ellipta Ellipta Ellipta 100-62.5-25 100-62.5-25 100-62.5-2 MCG/INH MCG/INH 5 MCG/INH Aspirin Low Aspirin Low No Aspirin Dose 81 MG Dose 81 MG Low Dose 81 MG Atenolol Atenolol No QD Atenolol 100 MG 100 MG 100 MG Gabapentin Gabapentin No Gabapentin 100 MG 100 MG 100 MG Aspirin 81 Aspirin 81 No Aspirin 81 MG MG MG Levothyroxi Levothyroxi No Levothyrox ne Sodium ne Sodium ine Sodium 25 MCG 25 MCG 25 MCG NexIUM 40 NexIUM 40 No NexIUM 40 MG MG MG Venlafaxine Venlafaxine No 1{capsu QD Venlafaxin HCl ER 75 HCl ER 75 le_with e HCl ER MG MG _food} 75 MG Synthroid Synthroid No QD Synthroid 25 MCG 25 MCG 25 MCG Aspirin Low Aspirin Low No Aspirin Dose 81 MG Dose 81 MG Low Dose 81 MG Furosemide Furosemide No 1{table QD Furosemide 20 MG 20 MG t} 20 MG Clopidogrel Clopidogrel No 1{table QD Clopidogre Bisulfate Bisulfate t} l 75 MG 75 MG Bisulfate 75 MG Clopidogrel Clopidogrel No 1{table QD Clopidogre Bisulfate Bisulfate t} l 75 MG 75 MG Bisulfate 75 MG Atenolol Atenolol No QD Atenolol 100 MG 100 MG 100 MG ProAir HFA ProAir HFA No 2{puffs QID ProAir HFA 108 (90 108 (90 _as_nee 108 (90 Base) Base) ded} Base) MCG/ACT MCG/ACT MCG/ACT Atenolol Atenolol No Atenolol 100 MG 100 MG 100 MG Vitamin D3 Vitamin D3 No 1{capsu Vitamin D3 23817 UNIT 27972 UNIT le} 74199 UNIT Zofran 4 MG Zofran 4 MG No 1{table QD Zofran 4 t_as_ne MG eded} Simvastatin Simvastatin No Simvastati 40 MG 40 MG n 40 MG traZODone traZODone No traZODone HCl 100 MG HCl 100 MG HCl 100 MG Venlafaxine Venlafaxine No QD Venlafaxin HCl ER 150 HCl ER 150 e HCl ER MG MG 150 MG Vitamin D3 Vitamin D3 No 1{capsu Vitamin D3 79907 UNIT 41165 UNIT le} 48191 UNIT Zofran 4 MG Zofran 4 MG No 1{table TID Zofran 4 t_as_ne MG eded} Trelegy Trelegy No 1{puff} QD Trelegy Ellipta Ellipta Ellipta 100-62.5-25 100-62.5-25 100-62.5-2 MCG/INH MCG/INH 5 MCG/INH Levothyroxi Levothyroxi No Levothyrox ne Sodium ne Sodium ine Sodium 50 MCG 50 MCG 50 MCG Venlafaxine Venlafaxine No Venlafaxin HCl ER 150 HCl ER 150 e HCl ER MG MG 150 MG Simvastatin Simvastatin No 1{table QD Simvastati 40 MG 40 MG t_in_th n 40 MG e_eveni ng} Linzess 145 Linzess 145 No 1{capsu QD Linzess mcg mcg le} 145 mcg Spironolact Spironolact No 1{table QD Spironolac one 25 MG one 25 MG t} tone 25 MG HYDROcodone HYDROcodone No 1{table QD HYDROcodon -Acetaminop -Acetaminop t} e-Acetamin hen 5-325 hen 5-325 ophen MG MG 5-325 MG Aspirin 81 Aspirin 81 No Aspirin 81 MG MG MG HYDROcodone HYDROcodone No 1{table QID HYDROcodon -Acetaminop -Acetaminop t_as_ne e-Acetamin hen 5-325 hen 5-325 eded} ophen MG MG 5-325 MG Atenolol Atenolol No 1{table QD Atenolol 100 MG 100 MG t} 100 MG Gabapentin Gabapentin No Gabapentin 100 MG 100 MG 100 MG Aspirin 81 Aspirin 81 No Aspirin 81 MG MG MG Levothyroxi Levothyroxi No Levothyrox ne Sodium ne Sodium ine Sodium 25 MCG 25 MCG 25 MCG NexIUM 40 NexIUM 40 No NexIUM 40 MG MG MG Venlafaxine Venlafaxine No 1{capsu QD Venlafaxin HCl ER 75 HCl ER 75 le_with e HCl ER MG MG _food} 75 MG Synthroid Synthroid No QD Synthroid 25 MCG 25 MCG 25 MCG Aspirin Low Aspirin Low No Aspirin Dose 81 MG Dose 81 MG Low Dose 81 MG Furosemide Furosemide No 1{table QD Furosemide 20 MG 20 MG t} 20 MG Clopidogrel Clopidogrel No 1{table QD Clopidogre Bisulfate Bisulfate t} l 75 MG 75 MG Bisulfate 75 MG Atenolol Atenolol No QD Atenolol 100 MG 100 MG 100 MG ProAir HFA ProAir HFA No 2{puffs QID ProAir HFA 108 (90 108 (90 _as_nee 108 (90 Base) Base) ded} Base) MCG/ACT MCG/ACT MCG/ACT Atenolol Atenolol No Atenolol 100 MG 100 MG 100 MG Vitamin D3 Vitamin D3 No 1{capsu Vitamin D3 76239 UNIT 80206 UNIT le} 12742 UNIT Zofran 4 MG Zofran 4 MG No 1{table QD Zofran 4 t_as_ne MG eded} Simvastatin Simvastatin No Simvastati 40 MG 40 MG n 40 MG traZODone traZODone No traZODone HCl 100 MG HCl 100 MG HCl 100 MG Venlafaxine Venlafaxine No QD Venlafaxin HCl ER 150 HCl ER 150 e HCl ER MG MG 150 MG Vitamin D3 Vitamin D3 No 1{capsu Vitamin D3 50912 UNIT 73886 UNIT le} 23274 UNIT Trelegy Trelegy No 1{puff} QD Trelegy Ellipta Ellipta Ellipta 100-62.5-25 100-62.5-25 100-62.5-2 MCG/INH MCG/INH 5 MCG/INH Levothyroxi Levothyroxi No Levothyrox ne Sodium ne Sodium ine Sodium 50 MCG 50 MCG 50 MCG Venlafaxine Venlafaxine No Venlafaxin HCl ER 150 HCl ER 150 e HCl ER MG MG 150 MG Simvastatin Simvastatin No 1{table QD Simvastati 40 MG 40 MG t_in_th n 40 MG e_eveni ng} Linzess 145 Linzess 145 No 1{capsu QD Linzess mcg mcg le} 145 mcg Spironolact Spironolact No 1{table QD Spironolac one 25 MG one 25 MG t} tone 25 MG HYDROcodone HYDROcodone No 1{table QD HYDROcodon -Acetaminop -Acetaminop t} e-Acetamin hen 5-325 hen 5-325 ophen MG MG 5-325 MG Aspirin 81 Aspirin 81 No Aspirin 81 MG MG MG HYDROcodone HYDROcodone No 1{table QID HYDROcodon -Acetaminop -Acetaminop t_as_ne e-Acetamin hen 5-325 hen 5-325 eded} ophen MG MG 5-325 MG Aspirin Low Aspirin Low No Aspirin Dose 81 MG Dose 81 MG Low Dose 81 MG HYDROcodone HYDROcodone No 1{table QID HYDROcodon -Acetaminop -Acetaminop t_as_ne e-Acetamin hen 5-325 hen 5-325 eded} ophen MG MG 5-325 MG Synthroid Synthroid No QD Synthroid 25 MCG 25 MCG 25 MCG Clopidogrel Clopidogrel No 1{table QD Clopidogre Bisulfate Bisulfate t} l 75 MG 75 MG Bisulfate 75 MG NexIUM 40 NexIUM 40 No NexIUM 40 MG MG MG Vitamin D3 Vitamin D3 No 1{capsu Vitamin D3 29162 UNIT 26884 UNIT le} 98629 UNIT Aspirin 81 Aspirin 81 No Aspirin 81 MG MG MG Levothyroxi Levothyroxi No Levothyrox ne Sodium ne Sodium ine Sodium 25 MCG 25 MCG 25 MCG Gabapentin Gabapentin No Gabapentin 100 MG 100 MG 100 MG Atenolol Atenolol No Atenolol 100 MG 100 MG 100 MG Simvastatin Simvastatin No 1{table QD Simvastati 40 MG 40 MG t_in_th n 40 MG e_eveni ng} ProAir HFA ProAir HFA No 2{puffs QID ProAir HFA 108 (90 108 (90 _as_nee 108 (90 Base) Base) ded} Base) MCG/ACT MCG/ACT MCG/ACT Trelegy Trelegy No 1{puff} QD Trelegy Ellipta Ellipta Ellipta 100-62.5-25 100-62.5-25 100-62.5-2 MCG/INH MCG/INH 5 MCG/INH Zofran 4 MG Zofran 4 MG No 1{table QD Zofran 4 t_as_ne MG eded} traZODone traZODone No traZODone HCl 100 MG HCl 100 MG HCl 100 MG Furosemide Furosemide No 1{table QD Furosemide 20 MG 20 MG t} 20 MG Aspirin 81 Aspirin 81 No Aspirin 81 MG MG MG Simvastatin Simvastatin No Simvastati 40 MG 40 MG n 40 MG Venlafaxine Venlafaxine No 1{capsu QD Venlafaxin HCl ER 75 HCl ER 75 le_with e HCl ER MG MG _food} 75 MG Venlafaxine Venlafaxine No Venlafaxin HCl ER 150 HCl ER 150 e HCl ER MG MG 150 MG Vitamin D3 Vitamin D3 No 1{capsu Vitamin D3 46522 UNIT 80089 UNIT le} 43448 UNIT Linzess 145 Linzess 145 No 1{capsu QD Linzess mcg mcg le} 145 mcg HYDROcodone HYDROcodone No 1{table QD HYDROcodon -Acetaminop -Acetaminop t} e-Acetamin hen 5-325 hen 5-325 ophen MG MG 5-325 MG Levothyroxi Levothyroxi No Levothyrox ne Sodium ne Sodium ine Sodium 50 MCG 50 MCG 50 MCG Spironolact Spironolact No 1{table QD Spironolac one 25 MG one 25 MG t} tone 25 MG Aspirin Low Aspirin Low No Aspirin Dose 81 MG Dose 81 MG Low Dose 81 MG HYDROcodone HYDROcodone No 1{table QID HYDROcodon -Acetaminop -Acetaminop t_as_ne e-Acetamin hen 5-325 hen 5-325 eded} ophen MG MG 5-325 MG Synthroid Synthroid No QD Synthroid 25 MCG 25 MCG 25 MCG Clopidogrel Clopidogrel No 1{table QD Clopidogre Bisulfate Bisulfate t} l 75 MG 75 MG Bisulfate 75 MG NexIUM 40 NexIUM 40 No NexIUM 40 MG MG MG Vitamin D3 Vitamin D3 No 1{capsu Vitamin D3 89501 UNIT 07243 UNIT le} 14113 UNIT Aspirin 81 Aspirin 81 No Aspirin 81 MG MG MG Levothyroxi Levothyroxi No Levothyrox ne Sodium ne Sodium ine Sodium 25 MCG 25 MCG 25 MCG Gabapentin Gabapentin No Gabapentin 100 MG 100 MG 100 MG Atenolol Atenolol No Atenolol 100 MG 100 MG 100 MG Simvastatin Simvastatin No 1{table QD Simvastati 40 MG 40 MG t_in_th n 40 MG e_eveni ng} ProAir HFA ProAir HFA No 2{puffs QID ProAir HFA 108 (90 108 (90 _as_nee 108 (90 Base) Base) ded} Base) MCG/ACT MCG/ACT MCG/ACT Trelegy Trelegy No 1{puff} QD Trelegy Ellipta Ellipta Ellipta 100-62.5-25 100-62.5-25 100-62.5-2 MCG/INH MCG/INH 5 MCG/INH Zofran 4 MG Zofran 4 MG No 1{table QD Zofran 4 t_as_ne MG eded} traZODone traZODone No traZODone HCl 100 MG HCl 100 MG HCl 100 MG Aspirin 81 Aspirin 81 No Aspirin 81 MG MG MG Furosemide Furosemide No 1{table QD Furosemide 20 MG 20 MG t} 20 MG Aspirin 81 Aspirin 81 No Aspirin 81 MG MG MG Simvastatin Simvastatin No Simvastati 40 MG 40 MG n 40 MG Venlafaxine Venlafaxine No 1{capsu QD Venlafaxin HCl ER 75 HCl ER 75 le_with e HCl ER MG MG _food} 75 MG Venlafaxine Venlafaxine No Venlafaxin HCl ER 150 HCl ER 150 e HCl ER MG MG 150 MG Vitamin D3 Vitamin D3 No 1{capsu Vitamin D3 67890 UNIT 62429 UNIT le} 37220 UNIT Linzess 145 Linzess 145 No 1{capsu QD Linzess mcg mcg le} 145 mcg HYDROcodone HYDROcodone No 1{table QD HYDROcodon -Acetaminop -Acetaminop t} e-Acetamin hen 5-325 hen 5-325 ophen MG MG 5-325 MG Levothyroxi Levothyroxi No Levothyrox ne Sodium ne Sodium ine Sodium 50 MCG 50 MCG 50 MCG Spironolact Spironolact No 1{table QD Spironolac one 25 MG one 25 MG t} tone 25 MG Nexium 40 Nexium 40 No Nexium 40 MG MG MG Simvastatin Simvastatin No 1{table QD Simvastati 40 MG 40 MG t_in_th n 40 MG e_eveni ng} Aspirin 81 Aspirin 81 No Aspirin 81 MG MG MG Levothyroxi Levothyroxi No Levothyrox ne Sodium ne Sodium ine Sodium 25 MCG 25 MCG 25 MCG NexIUM 40 NexIUM 40 No NexIUM 40 MG MG MG Hydrocodone Hydrocodone No 1{table QID Hydrocodon -Acetaminop -Acetaminop t_as_ne e-Acetamin hen 5-325 hen 5-325 eded} ophen MG MG 5-325 MG Aspirin Low Aspirin Low No Aspirin Dose 81 MG Dose 81 MG Low Dose 81 MG Gabapentin Gabapentin No Gabapentin 100 MG 100 MG 100 MG Trelegy Trelegy No 1{puff} QD Trelegy Ellipta Ellipta Ellipta 100-62.5-25 100-62.5-25 100-62.5-2 MCG/INH MCG/INH 5 MCG/INH Synthroid Synthroid No QD Synthroid 25 MCG 25 MCG 25 MCG Aspirin 81 Aspirin 81 No Aspirin 81 MG MG MG traZODone traZODone No traZODone HCl 100 MG HCl 100 MG HCl 100 MG HYDROcodone HYDROcodone No 1{table QID HYDROcodon -Acetaminop -Acetaminop t_as_ne e-Acetamin hen 5-325 hen 5-325 eded} ophen MG MG 5-325 MG Furosemide Furosemide No 1{table QD Furosemide 20 MG 20 MG t} 20 MG Hydrocodone Hydrocodone No 1{table QD Hydrocodon -Acetaminop -Acetaminop t} e-Acetamin hen 5-325 hen 5-325 ophen MG MG 5-325 MG Atenolol Atenolol No Atenolol 100 MG 100 MG 100 MG Spironolact Spironolact No 1{table QD Spironolac one 25 MG one 25 MG t} tone 25 MG Vitamin D3 Vitamin D3 No 1{capsu Vitamin D3 15207 UNIT 04567 UNIT le} 03520 UNIT Venlafaxine Venlafaxine No 1{capsu QD Venlafaxin HCl ER 75 HCl ER 75 le_with e HCl ER MG MG _food} 75 MG Linzess 145 Linzess 145 No 1{capsu QD Linzess mcg mcg le} 145 mcg Aspirin 81 Aspirin 81 No Aspirin 81 MG MG MG Clopidogrel Clopidogrel No 1{table QD Clopidogre Bisulfate Bisulfate t} l 75 MG 75 MG Bisulfate 75 MG ProAir HFA ProAir HFA No 2{puffs QID ProAir HFA 108 (90 108 (90 _as_nee 108 (90 Base) Base) ded} Base) MCG/ACT MCG/ACT MCG/ACT Zofran 4 MG Zofran 4 MG No 1{table QD Zofran 4 t_as_ne MG eded} Simvastatin Simvastatin No 1{table QD Simvastati 40 MG 40 MG t_in_th n 40 MG e_eveni ng} ProAir HFA ProAir HFA No 2{puffs QID ProAir HFA 108 (90 108 (90 _as_nee 108 (90 Base) Base) ded} Base) MCG/ACT MCG/ACT MCG/ACT Venlafaxine Venlafaxine No Venlafaxin HCl ER 150 HCl ER 150 e HCl ER MG MG 150 MG HYDROcodone HYDROcodone No 1{table QD HYDROcodon -Acetaminop -Acetaminop t} e-Acetamin hen 5-325 hen 5-325 ophen MG MG 5-325 MG Vitamin D3 Vitamin D3 No 1{capsu Vitamin D3 33588 UNIT 36585 UNIT le} 66984 UNIT Levothyroxi Levothyroxi No Levothyrox ne Sodium ne Sodium ine Sodium 50 MCG 50 MCG 50 MCG Simvastatin Simvastatin No Simvastati 40 MG 40 MG n 40 MG Venlafaxine Venlafaxine No 1{capsu QD Venlafaxin HCl ER 75 HCl ER 75 le_with e HCl ER MG MG _food} 75 MG Synthroid Synthroid No QD Synthroid 25 MCG 25 MCG 25 MCG Gabapentin Gabapentin No Gabapentin 100 MG 100 MG 100 MG Levothyroxi Levothyroxi No Levothyrox ne Sodium ne Sodium ine Sodium 25 MCG 25 MCG 25 MCG NexIUM 40 NexIUM 40 No NexIUM 40 MG MG MG Aspirin Low Aspirin Low No Aspirin Dose 81 MG Dose 81 MG Low Dose 81 MG Gabapentin Gabapentin No Gabapentin 100 MG 100 MG 100 MG Atenolol Atenolol No Atenolol 100 MG 100 MG 100 MG Trelegy Trelegy No 1{puff} QD Trelegy Ellipta Ellipta Ellipta 100-62.5-25 100-62.5-25 100-62.5-2 MCG/INH MCG/INH 5 MCG/INH Synthroid Synthroid No QD Synthroid 25 MCG 25 MCG 25 MCG Aspirin 81 Aspirin 81 No Aspirin 81 MG MG MG traZODone traZODone No traZODone HCl 100 MG HCl 100 MG HCl 100 MG HYDROcodone HYDROcodone No 1{table QID HYDROcodon -Acetaminop -Acetaminop t_as_ne e-Acetamin hen 5-325 hen 5-325 eded} ophen MG MG 5-325 MG Furosemide Furosemide No 1{table QD Furosemide 20 MG 20 MG t} 20 MG Atenolol Atenolol No Atenolol 100 MG 100 MG 100 MG Spironolact Spironolact No 1{table QD Spironolac one 25 MG one 25 MG t} tone 25 MG Vitamin D3 Vitamin D3 No 1{capsu Vitamin D3 50774 UNIT 92378 UNIT le} 97635 UNIT Spironolact Spironolact No 1{table QD Spironolac one 25 MG one 25 MG t} tone 25 MG Venlafaxine Venlafaxine No 1{capsu QD Venlafaxin HCl ER 75 HCl ER 75 le_with e HCl ER MG MG _food} 75 MG Linzess 145 Linzess 145 No 1{capsu QD Linzess mcg mcg le} 145 mcg Aspirin 81 Aspirin 81 No Aspirin 81 MG MG MG Clopidogrel Clopidogrel No 1{table QD Clopidogre Bisulfate Bisulfate t} l 75 MG 75 MG Bisulfate 75 MG ProAir HFA ProAir HFA No 2{puffs QID ProAir HFA 108 (90 108 (90 _as_nee 108 (90 Base) Base) ded} Base) MCG/ACT MCG/ACT MCG/ACT Zofran 4 MG Zofran 4 MG No 1{table QD Zofran 4 t_as_ne MG eded} Simvastatin Simvastatin No 1{table QD Simvastati 40 MG 40 MG t_in_th n 40 MG e_eveni ng} Venlafaxine Venlafaxine No Venlafaxin HCl ER 150 HCl ER 150 e HCl ER MG MG 150 MG HYDROcodone HYDROcodone No 1{table QD HYDROcodon -Acetaminop -Acetaminop t} e-Acetamin hen 5-325 hen 5-325 ophen MG MG 5-325 MG Vitamin D3 Vitamin D3 No 1{capsu Vitamin D3 50910 UNIT 22285 UNIT le} 25586 UNIT Linzess 145 Linzess 145 No 1{capsu QD Linzess mcg mcg le} 145 mcg Levothyroxi Levothyroxi No Levothyrox ne Sodium ne Sodium ine Sodium 50 MCG 50 MCG 50 MCG Simvastatin Simvastatin No Simvastati 40 MG 40 MG n 40 MG Nexium 24HR Nexium 24HR No 1{capsu QD Nexium 20 MG 20 MG le} 24HR 20 MG Levothyroxi Levothyroxi No Levothyrox ne Sodium ne Sodium ine Sodium 50 MCG 50 MCG 50 MCG Furosemide Furosemide No 1{table QD Furosemide 20 MG 20 MG t} 20 MG Levothyroxi Levothyroxi No Levothyrox ne Sodium ne Sodium ine Sodium 25 MCG 25 MCG 25 MCG Trelegy Trelegy No 1{puff} QD Trelegy Ellipta Ellipta Ellipta 100-62.5-25 100-62.5-25 100-62.5-2 MCG/INH MCG/INH 5 MCG/INH NexIUM 40 NexIUM 40 No NexIUM 40 MG MG MG Aspirin Low Aspirin Low No Aspirin Dose 81 MG Dose 81 MG Low Dose 81 MG Gabapentin Gabapentin No Gabapentin 100 MG 100 MG 100 MG Trelegy Trelegy No 1{puff} QD Trelegy Ellipta Ellipta Ellipta 100-62.5-25 100-62.5-25 100-62.5-2 MCG/INH MCG/INH 5 MCG/INH Synthroid Synthroid No QD Synthroid 25 MCG 25 MCG 25 MCG Aspirin 81 Aspirin 81 No Aspirin 81 MG MG MG traZODone traZODone No traZODone HCl 100 MG HCl 100 MG HCl 100 MG HYDROcodone HYDROcodone No 1{table QID HYDROcodon -Acetaminop -Acetaminop t_as_ne e-Acetamin hen 5-325 hen 5-325 eded} ophen MG MG 5-325 MG Aspirin Low Aspirin Low No Aspirin Dose 81 MG Dose 81 MG Low Dose 81 MG Furosemide Furosemide No 1{table QD Furosemide 20 MG 20 MG t} 20 MG Atenolol Atenolol No Atenolol 100 MG 100 MG 100 MG Spironolact Spironolact No 1{table QD Spironolac one 25 MG one 25 MG t} tone 25 MG Vitamin D3 Vitamin D3 No 1{capsu Vitamin D3 45481 UNIT 95777 UNIT le} 00597 UNIT Venlafaxine Venlafaxine No 1{capsu QD Venlafaxin HCl ER 75 HCl ER 75 le_with e HCl ER MG MG _food} 75 MG Linzess 145 Linzess 145 No 1{capsu QD Linzess mcg mcg le} 145 mcg Aspirin 81 Aspirin 81 No Aspirin 81 MG MG MG Clopidogrel Clopidogrel No 1{table QD Clopidogre Bisulfate Bisulfate t} l 75 MG 75 MG Bisulfate 75 MG ProAir HFA ProAir HFA No 2{puffs QID ProAir HFA 108 (90 108 (90 _as_nee 108 (90 Base) Base) ded} Base) MCG/ACT MCG/ACT MCG/ACT Zofran 4 MG Zofran 4 MG No 1{table QD Zofran 4 t_as_ne MG eded} Atenolol Atenolol No QD Atenolol 100 MG 100 MG 100 MG Simvastatin Simvastatin No 1{table QD Simvastati 40 MG 40 MG t_in_th n 40 MG e_eveni ng} Venlafaxine Venlafaxine No Venlafaxin HCl ER 150 HCl ER 150 e HCl ER MG MG 150 MG HYDROcodone HYDROcodone No 1{table QD HYDROcodon -Acetaminop -Acetaminop t} e-Acetamin hen 5-325 hen 5-325 ophen MG MG 5-325 MG Vitamin D3 Vitamin D3 No 1{capsu Vitamin D3 80256 UNIT 33812 UNIT le} 79751 UNIT Levothyroxi Levothyroxi No Levothyrox ne Sodium ne Sodium ine Sodium 50 MCG 50 MCG 50 MCG Simvastatin Simvastatin No Simvastati 40 MG 40 MG n 40 MG Clopidogrel Clopidogrel No 1{table QD Clopidogre Bisulfate Bisulfate t} l 75 MG 75 MG Bisulfate 75 MG Zofran 4 MG Zofran 4 MG No 1{table TID Zofran 4 t_as_ne MG eded} Aspirin Low Aspirin Low No Aspirin Dose 81 MG Dose 81 MG Low Dose 81 MG NexIUM 40 NexIUM 40 No NexIUM 40 MG MG MG Venlafaxine Venlafaxine No 1{capsu QD Venlafaxin HCl ER 75 HCl ER 75 le_with e HCl ER MG MG _food} 75 MG Trelegy Trelegy No 1{puff} QD Trelegy Ellipta Ellipta Ellipta 100-62.5-25 100-62.5-25 100-62.5-2 MCG/INH MCG/INH 5 MCG/INH Vitamin D3 Vitamin D3 No 1{capsu Vitamin D3 17353 UNIT 43523 UNIT le} 59176 UNIT Atenolol Atenolol No 1{table QD Atenolol 100 MG 100 MG t} 100 MG Synthroid Synthroid No QD Synthroid 25 MCG 25 MCG 25 MCG Furosemide Furosemide No 1{table QD Furosemide 20 MG 20 MG t} 20 MG Aspirin 81 Aspirin 81 No Aspirin 81 MG MG MG Simvastatin Simvastatin No Simvastati 40 MG 40 MG n 40 MG Simvastatin Simvastatin No 1{table QD Simvastati 40 MG 40 MG t_in_th n 40 MG e_eveni ng} ProAir HFA ProAir HFA No 2{puffs QID ProAir HFA 108 (90 108 (90 _as_nee 108 (90 Base) Base) ded} Base) MCG/ACT MCG/ACT MCG/ACT HYDROcodone HYDROcodone No 1{table QID HYDROcodon -Acetaminop -Acetaminop t_as_ne e-Acetamin hen 5-325 hen 5-325 eded} ophen MG MG 5-325 MG Aspirin 81 Aspirin 81 No Aspirin 81 MG MG MG Spironolact Spironolact No 1{table QD Spironolac one 25 MG one 25 MG t} tone 25 MG Gabapentin Gabapentin No Gabapentin 100 MG 100 MG 100 MG Levothyroxi Levothyroxi No Levothyrox ne Sodium ne Sodium ine Sodium 25 MCG 25 MCG 25 MCG Linzess 145 Linzess 145 No 1{capsu QD Linzess mcg mcg le} 145 mcg Clopidogrel Clopidogrel No 1{table QD Clopidogre Bisulfate Bisulfate t} l 75 MG 75 MG Bisulfate 75 MG HYDROcodone HYDROcodone No 1{table QD HYDROcodon -Acetaminop -Acetaminop t} e-Acetamin hen 5-325 hen 5-325 ophen MG MG 5-325 MG traZODone traZODone No traZODone HCl 100 MG HCl 100 MG HCl 100 MG Vitamin D3 Vitamin D3 No 1{capsu Vitamin D3 22554 UNIT 63103 UNIT le} 23283 UNIT Levothyroxi Levothyroxi No Levothyrox ne Sodium ne Sodium ine Sodium 50 MCG 50 MCG 50 MCG Venlafaxine Venlafaxine No Venlafaxin HCl ER 150 HCl ER 150 e HCl ER MG MG 150 MG Atenolol Atenolol No Atenolol 100 MG 100 MG 100 MG Zofran 4 MG Zofran 4 MG No 1{table QD Zofran 4 t_as_ne MG eded} Vitamin D3 Vitamin D3 No 1{capsu Vitamin D3 21618 UNIT 61105 UNIT le} 36555 UNIT Synthroid Synthroid No QD Synthroid 25 MCG 25 MCG 25 MCG Furosemide Furosemide No 1{table QD Furosemide 20 MG 20 MG t} 20 MG Aspirin 81 Aspirin 81 No Aspirin 81 MG MG MG Atenolol Atenolol No Atenolol 100 MG 100 MG 100 MG Simvastatin Simvastatin No 1{table QD Simvastati 40 MG 40 MG t_in_th n 40 MG e_eveni ng} ProAir HFA ProAir HFA No 2{puffs QID ProAir HFA 108 (90 108 (90 _as_nee 108 (90 Base) Base) ded} Base) MCG/ACT MCG/ACT MCG/ACT Levothyroxi Levothyroxi No Levothyrox ne Sodium ne Sodium ine Sodium 25 MCG 25 MCG 25 MCG Simvastatin Simvastatin No Simvastati 40 MG 40 MG n 40 MG Gabapentin Gabapentin No Gabapentin 100 MG 100 MG 100 MG HYDROcodone HYDROcodone No 1{table QID HYDROcodon -Acetaminop -Acetaminop t_as_ne e-Acetamin hen 5-325 hen 5-325 eded} ophen MG MG 5-325 MG HYDROcodone HYDROcodone No 1{table QD HYDROcodon -Acetaminop -Acetaminop t} e-Acetamin hen 5-325 hen 5-325 ophen MG MG 5-325 MG Venlafaxine Venlafaxine No 1{capsu QD Venlafaxin HCl ER 75 HCl ER 75 le_with e HCl ER MG MG _food} 75 MG Trelegy Trelegy No 1{puff} QD Trelegy Ellipta Ellipta Ellipta 100-62.5-25 100-62.5-25 100-62.5-2 MCG/INH MCG/INH 5 MCG/INH Vitamin D3 Vitamin D3 No 1{capsu Vitamin D3 89977 UNIT 75835 UNIT le} 76934 UNIT traZODone traZODone No traZODone HCl 100 MG HCl 100 MG HCl 100 MG Clopidogrel Clopidogrel No 1{table QD Clopidogre Bisulfate Bisulfate t} l 75 MG 75 MG Bisulfate 75 MG NexIUM 40 NexIUM 40 No NexIUM 40 MG MG MG Linzess 145 Linzess 145 No 1{capsu QD Linzess mcg mcg le} 145 mcg Aspirin Low Aspirin Low No Aspirin Dose 81 MG Dose 81 MG Low Dose 81 MG Aspirin 81 Aspirin 81 No Aspirin 81 MG MG MG Spironolact Spironolact No 1{table QD Spironolac one 25 MG one 25 MG t} tone 25 MG Levothyroxi Levothyroxi No Levothyrox ne Sodium ne Sodium ine Sodium 50 MCG 50 MCG 50 MCG Venlafaxine Venlafaxine No Venlafaxin HCl ER 150 HCl ER 150 e HCl ER MG MG 150 MG Zofran 4 MG Zofran 4 MG No 1{table QD Zofran 4 t_as_ne MG eded} Venlafaxine Venlafaxine No 1{capsu QD Venlafaxin HCl ER 75 HCl ER 75 le_with e HCl ER MG MG _food} 75 MG Vitamin D3 Vitamin D3 No 1{capsu Vitamin D3 85255 UNIT 53129 UNIT le} 33513 UNIT Gabapentin Gabapentin No Gabapentin 100 MG 100 MG 100 MG Levothyroxi Levothyroxi No Levothyrox ne Sodium ne Sodium ine Sodium 50 MCG 50 MCG 50 MCG Levothyroxi Levothyroxi No Levothyrox ne Sodium ne Sodium ine Sodium 25 MCG 25 MCG 25 MCG Synthroid Synthroid No QD Synthroid 25 MCG 25 MCG 25 MCG HYDROcodone HYDROcodone No 1{table QID HYDROcodon -Acetaminop -Acetaminop t_as_ne e-Acetamin hen 5-325 hen 5-325 eded} ophen MG MG 5-325 MG NexIUM 40 NexIUM 40 No NexIUM 40 MG MG MG Trelegy Trelegy No 1{puff} QD Trelegy Ellipta Ellipta Ellipta 100-62.5-25 100-62.5-25 100-62.5-2 MCG/INH MCG/INH 5 MCG/INH Aspirin 81 Aspirin 81 No Aspirin 81 MG MG MG Clopidogrel Clopidogrel No 1{table QD Clopidogre Bisulfate Bisulfate t} l 75 MG 75 MG Bisulfate 75 MG Aspirin 81 Aspirin 81 No Aspirin 81 MG MG MG Venlafaxine Venlafaxine No Venlafaxin HCl ER 150 HCl ER 150 e HCl ER MG MG 150 MG Gabapentin Gabapentin No Gabapentin 100 MG 100 MG 100 MG Zofran 4 MG Zofran 4 MG No 1{table QD Zofran 4 t_as_ne MG eded} traZODone traZODone No traZODone HCl 100 MG HCl 100 MG HCl 100 MG ProAir HFA ProAir HFA No 2{puffs QID ProAir HFA 108 (90 108 (90 _as_nee 108 (90 Base) Base) ded} Base) MCG/ACT MCG/ACT MCG/ACT HYDROcodone HYDROcodone No 1{table QD HYDROcodon -Acetaminop -Acetaminop t} e-Acetamin hen 5-325 hen 5-325 ophen MG MG 5-325 MG Simvastatin Simvastatin No Simvastati 40 MG 40 MG n 40 MG Venlafaxine Venlafaxine No 1{capsu QD Venlafaxin HCl ER 75 HCl ER 75 le_with e HCl ER MG MG _food} 75 MG Aspirin Low Aspirin Low No Aspirin Dose 81 MG Dose 81 MG Low Dose 81 MG Linzess 145 Linzess 145 No 1{capsu QD Linzess mcg mcg le} 145 mcg Spironolact Spironolact No 1{table QD Spironolac one 25 MG one 25 MG t} tone 25 MG Atenolol Atenolol No QD Atenolol 100 MG 100 MG 100 MG Furosemide Furosemide No 1{table QD Furosemide 20 MG 20 MG t} 20 MG Vitamin D3 Vitamin D3 No 1{capsu Vitamin D3 21292 UNIT 37639 UNIT le} 59432 UNIT Simvastatin Simvastatin No 1{table QD Simvastati 40 MG 40 MG t_in_th n 40 MG e_eveni ng} Levothyroxi Levothyroxi No Levothyrox ne Sodium ne Sodium ine Sodium 50 MCG 50 MCG 50 MCG Atenolol Atenolol No Atenolol 100 MG 100 MG 100 MG Hydrocodone Hydrocodone No 1{table QID Hydrocodon -Acetaminop -Acetaminop t_as_ne e-Acetamin hen 5-325 hen 5-325 eded} ophen MG MG 5-325 MG Trelegy Trelegy No 1{puff} QD Trelegy Ellipta Ellipta Ellipta 100-62.5-25 100-62.5-25 100-62.5-2 MCG/INH MCG/INH 5 MCG/INH Zofran 4 MG Zofran 4 MG No 1{table TID Zofran 4 t_as_ne MG eded} Vitamin D3 Vitamin D3 No 1{capsu Vitamin D3 35752 UNIT 74842 UNIT le} 71261 UNIT Gabapentin Gabapentin No Gabapentin 100 MG 100 MG 100 MG Aspirin 81 Aspirin 81 No Aspirin 81 MG MG MG Levothyroxi Levothyroxi No Levothyrox ne Sodium ne Sodium ine Sodium 25 MCG 25 MCG 25 MCG Synthroid Synthroid No QD Synthroid 25 MCG 25 MCG 25 MCG HYDROcodone HYDROcodone No 1{table QID HYDROcodon -Acetaminop -Acetaminop t_as_ne e-Acetamin hen 5-325 hen 5-325 eded} ophen MG MG 5-325 MG NexIUM 40 NexIUM 40 No NexIUM 40 MG MG MG Trelegy Trelegy No 1{puff} QD Trelegy Ellipta Ellipta Ellipta 100-62.5-25 100-62.5-25 100-62.5-2 MCG/INH MCG/INH 5 MCG/INH Aspirin 81 Aspirin 81 No Aspirin 81 MG MG MG Clopidogrel Clopidogrel No 1{table QD Clopidogre Bisulfate Bisulfate t} l 75 MG 75 MG Bisulfate 75 MG Aspirin 81 Aspirin 81 No Aspirin 81 MG MG MG Venlafaxine Venlafaxine No Venlafaxin HCl ER 150 HCl ER 150 e HCl ER MG MG 150 MG Nexium 40 Nexium 40 No Nexium 40 MG MG MG Zofran 4 MG Zofran 4 MG No 1{table QD Zofran 4 t_as_ne MG eded} traZODone traZODone No traZODone HCl 100 MG HCl 100 MG HCl 100 MG ProAir HFA ProAir HFA No 2{puffs QID ProAir HFA 108 (90 108 (90 _as_nee 108 (90 Base) Base) ded} Base) MCG/ACT MCG/ACT MCG/ACT HYDROcodone HYDROcodone No 1{table QD HYDROcodon -Acetaminop -Acetaminop t} e-Acetamin hen 5-325 hen 5-325 ophen MG MG 5-325 MG Simvastatin Simvastatin No Simvastati 40 MG 40 MG n 40 MG Venlafaxine Venlafaxine No 1{capsu QD Venlafaxin HCl ER 75 HCl ER 75 le_with e HCl ER MG MG _food} 75 MG Aspirin Low Aspirin Low No Aspirin Dose 81 MG Dose 81 MG Low Dose 81 MG Linzess 145 Linzess 145 No 1{capsu QD Linzess mcg mcg le} 145 mcg Spironolact Spironolact No 1{table QD Spironolac one 25 MG one 25 MG t} tone 25 MG Synthroid Synthroid No QD Synthroid 25 MCG 25 MCG 25 MCG Furosemide Furosemide No 1{table QD Furosemide 20 MG 20 MG t} 20 MG Vitamin D3 Vitamin D3 No 1{capsu Vitamin D3 63422 UNIT 68399 UNIT le} 13713 UNIT Simvastatin Simvastatin No 1{table QD Simvastati 40 MG 40 MG t_in_th n 40 MG e_eveni ng} Levothyroxi Levothyroxi No Levothyrox ne Sodium ne Sodium ine Sodium 50 MCG 50 MCG 50 MCG Atenolol Atenolol No Atenolol 100 MG 100 MG 100 MG Aspirin Low Aspirin Low No Aspirin Dose 81 MG Dose 81 MG Low Dose 81 MG Furosemide Furosemide No 1{table QD Furosemide 20 MG 20 MG t} 20 MG Clopidogrel Clopidogrel No 1{table QD Clopidogre Bisulfate Bisulfate t} l 75 MG 75 MG Bisulfate 75 MG Aspirin Low Aspirin Low No Aspirin Dose 81 MG Dose 81 MG Low Dose 81 MG Aspirin 81 Aspirin 81 No Aspirin 81 MG MG MG Gabapentin Gabapentin No Gabapentin 100 MG 100 MG 100 MG HYDROcodone HYDROcodone No 1{table QID HYDROcodon -Acetaminop -Acetaminop t_as_ne e-Acetamin hen 5-325 hen 5-325 eded} ophen MG MG 5-325 MG Levothyroxi Levothyroxi No Levothyrox ne Sodium ne Sodium ine Sodium 25 MCG 25 MCG 25 MCG Linzess 145 Linzess 145 No 1{capsu QD Linzess mcg mcg le} 145 mcg Atenolol Atenolol No Atenolol 100 MG 100 MG 100 MG Vitamin D3 Vitamin D3 No 1{capsu Vitamin D3 19946 UNIT 66603 UNIT le} 76736 UNIT Trelegy Trelegy No 1{puff} QD Trelegy Ellipta Ellipta Ellipta 100-62.5-25 100-62.5-25 100-62.5-2 MCG/INH MCG/INH 5 MCG/INH NexIUM 40 NexIUM 40 No NexIUM 40 MG MG MG Venlafaxine Venlafaxine No Venlafaxin HCl ER 150 HCl ER 150 e HCl ER MG MG 150 MG Zofran 4 MG Zofran 4 MG No 1{table QD Zofran 4 t_as_ne MG eded} Aspirin 81 Aspirin 81 No Aspirin 81 MG MG MG traZODone traZODone No traZODone HCl 100 MG HCl 100 MG HCl 100 MG Venlafaxine Venlafaxine No 1{capsu QD Venlafaxin HCl ER 75 HCl ER 75 le_with e HCl ER MG MG _food} 75 MG HYDROcodone HYDROcodone No 1{table QD HYDROcodon -Acetaminop -Acetaminop t} e-Acetamin hen 5-325 hen 5-325 ophen MG MG 5-325 MG Simvastatin Simvastatin No 1{table QD Simvastati 40 MG 40 MG t_in_th n 40 MG e_eveni ng} ProAir HFA ProAir HFA No 2{puffs QID ProAir HFA 108 (90 108 (90 _as_nee 108 (90 Base) Base) ded} Base) MCG/ACT MCG/ACT MCG/ACT Clopidogrel Clopidogrel No 1{table QD Clopidogre Bisulfate Bisulfate t} l 75 MG 75 MG Bisulfate 75 MG Synthroid Synthroid No QD Synthroid 25 MCG 25 MCG 25 MCG Linzess 145 Linzess 145 No 1{capsu QD Linzess mcg mcg le} 145 mcg Simvastatin Simvastatin No Simvastati 40 MG 40 MG n 40 MG Levothyroxi Levothyroxi No Levothyrox ne Sodium ne Sodium ine Sodium 50 MCG 50 MCG 50 MCG Spironolact Spironolact No 1{table QD Spironolac one 25 MG one 25 MG t} tone 25 MG Vitamin D3 Vitamin D3 No 1{capsu Vitamin D3 75912 UNIT 86000 UNIT le} 62397 UNIT Hydrocodone Hydrocodone No 1{table QD Hydrocodon -Acetaminop -Acetaminop t} e-Acetamin hen 5-325 hen 5-325 ophen MG MG 5-325 MG Furosemide Furosemide No 1{table QD Furosemide 20 MG 20 MG t} 20 MG Spironolact Spironolact No 1{table QD Spironolac one 25 MG one 25 MG t} tone 25 MG ProAir HFA ProAir HFA No 2{puffs QID ProAir HFA 108 (90 108 (90 _as_nee 108 (90 Base) Base) ded} Base) MCG/ACT MCG/ACT MCG/ACT Aspirin 81 Aspirin 81 No Aspirin 81 MG MG MG Furosemide Furosemide No 1{table QD Furosemide 20 MG 20 MG t} 20 MG Synthroid Synthroid No QD Synthroid 25 MCG 25 MCG 25 MCG Atenolol Atenolol No QD Atenolol 100 MG 100 MG 100 MG HYDROcodone HYDROcodone No 1{table QD HYDROcodon -Acetaminop -Acetaminop t} e-Acetamin hen 5-325 hen 5-325 ophen MG MG 5-325 MG NexIUM 40 NexIUM 40 No NexIUM 40 MG MG MG Zofran 4 MG Zofran 4 MG No 1{table QD Zofran 4 t_as_ne MG eded} Aspirin 81 Aspirin 81 No Aspirin 81 MG MG MG Linzess 145 Linzess 145 No 1{capsu QD Linzess mcg mcg le} 145 mcg Trelegy Trelegy No 1{puff} QD Trelegy Ellipta Ellipta Ellipta 100-62.5-25 100-62.5-25 100-62.5-2 MCG/INH MCG/INH 5 MCG/INH Venlafaxine Venlafaxine No Venlafaxin HCl ER 150 HCl ER 150 e HCl ER MG MG 150 MG Simvastatin Simvastatin No 1{table QD Simvastati 40 MG 40 MG t_in_th n 40 MG e_eveni ng} Venlafaxine Venlafaxine No 1{capsu QD Venlafaxin HCl ER 75 HCl ER 75 le_with e HCl ER MG MG _food} 75 MG traZODone traZODone No traZODone HCl 100 MG HCl 100 MG HCl 100 MG Atenolol Atenolol No Atenolol 100 MG 100 MG 100 MG Spironolact Spironolact No 1{table QD Spironolac one 25 MG one 25 MG t} tone 25 MG Venlafaxine Venlafaxine No QD Venlafaxin HCl ER 150 HCl ER 150 e HCl ER MG MG 150 MG Clopidogrel Clopidogrel No 1{table QD Clopidogre Bisulfate Bisulfate t} l 75 MG 75 MG Bisulfate 75 MG ProAir HFA ProAir HFA No 2{puffs QID ProAir HFA 108 (90 108 (90 _as_nee 108 (90 Base) Base) ded} Base) MCG/ACT MCG/ACT MCG/ACT Gabapentin Gabapentin No Gabapentin 100 MG 100 MG 100 MG Simvastatin Simvastatin No Simvastati 40 MG 40 MG n 40 MG Aspirin Low Aspirin Low No Aspirin Dose 81 MG Dose 81 MG Low Dose 81 MG Vitamin D3 Vitamin D3 No 1{capsu Vitamin D3 87950 UNIT 17084 UNIT le} 47597 UNIT Levothyroxi Levothyroxi No Levothyrox ne Sodium ne Sodium ine Sodium 25 MCG 25 MCG 25 MCG Aspirin 81 Aspirin 81 No Aspirin 81 MG MG MG HYDROcodone HYDROcodone No 1{table QID HYDROcodon -Acetaminop -Acetaminop t_as_ne e-Acetamin hen 5-325 hen 5-325 eded} ophen MG MG 5-325 MG traZODone traZODone No traZODone HCl 100 MG HCl 100 MG HCl 100 MG Trelegy Trelegy No 1{puff} QD Trelegy Ellipta Ellipta Ellipta 100-62.5-25 100-62.5-25 100-62.5-2 MCG/INH MCG/INH 5 MCG/INH HYDROcodone HYDROcodone No 1{table QID HYDROcodon -Acetaminop -Acetaminop t_as_ne e-Acetamin hen 5-325 hen 5-325 eded} ophen MG MG 5-325 MG Synthroid Synthroid No QD Synthroid 25 MCG 25 MCG 25 MCG NexIUM 40 NexIUM 40 No NexIUM 40 MG MG MG Gabapentin Gabapentin No Gabapentin 100 MG 100 MG 100 MG Aspirin 81 Aspirin 81 No Aspirin 81 MG MG MG Aspirin Low Aspirin Low No Aspirin Dose 81 MG Dose 81 MG Low Dose 81 MG Aspirin 81 Aspirin 81 No Aspirin 81 MG MG MG Venlafaxine Venlafaxine No Venlafaxin HCl ER 150 HCl ER 150 e HCl ER MG MG 150 MG Spironolact Spironolact No 1{table QD Spironolac one 25 MG one 25 MG t} tone 25 MG Simvastatin Simvastatin No Simvastati 40 MG 40 MG n 40 MG Venlafaxine Venlafaxine No 1{capsu QD Venlafaxin HCl ER 75 HCl ER 75 le_with e HCl ER MG MG _food} 75 MG Linzess 145 Linzess 145 No 1{capsu QD Linzess mcg mcg le} 145 mcg Atenolol Atenolol No Atenolol 100 MG 100 MG 100 MG ProAir HFA ProAir HFA No 2{puffs QID ProAir HFA 108 (90 108 (90 _as_nee 108 (90 Base) Base) ded} Base) MCG/ACT MCG/ACT MCG/ACT Clopidogrel Clopidogrel No 1{table QD Clopidogre Bisulfate Bisulfate t} l 75 MG 75 MG Bisulfate 75 MG HYDROcodone HYDROcodone No 1{table QD HYDROcodon -Acetaminop -Acetaminop t} e-Acetamin hen 5-325 hen 5-325 ophen MG MG 5-325 MG Levothyroxi Levothyroxi No Levothyrox ne Sodium ne Sodium ine Sodium 25 MCG 25 MCG 25 MCG Zofran 4 MG Zofran 4 MG No 1{table QD Zofran 4 t_as_ne MG eded} Venlafaxine Venlafaxine No QD Venlafaxin HCl ER 150 HCl ER 150 e HCl ER MG MG 150 MG Atenolol Atenolol No QD Atenolol 100 MG 100 MG 100 MG Simvastatin Simvastatin No 1{table QD Simvastati 40 MG 40 MG t_in_th n 40 MG e_eveni ng} Furosemide Furosemide No 1{table QD Furosemide 20 MG 20 MG t} 20 MG Vitamin D3 Vitamin D3 No Vitamin D3 1.25 MG 1.25 MG 1.25 MG (87041 UT) (00248 UT) (23769 UT) Atenolol Atenolol No Atenolol 100 MG 100 MG 100 MG Simvastatin Simvastatin No 1{table QD Simvastati 40 MG 40 MG t_in_th n 40 MG e_eveni ng} Aspirin Low Aspirin Low No Aspirin Dose 81 MG Dose 81 MG Low Dose 81 MG Atenolol Atenolol No QD Atenolol 100 MG 100 MG 100 MG Levothyroxi Levothyroxi No Levothyrox ne Sodium ne Sodium ine Sodium 25 MCG 25 MCG 25 MCG HYDROcodone HYDROcodone No 1{table QD HYDROcodon -Acetaminop -Acetaminop t} e-Acetamin hen 5-325 hen 5-325 ophen MG MG 5-325 MG Simvastatin Simvastatin No Simvastati 40 MG 40 MG n 40 MG Spironolact Spironolact No 1{table QD Spironolac one 25 MG one 25 MG t} tone 25 MG Vitamin D3 Vitamin D3 No Vitamin D3 1.25 MG 1.25 MG 1.25 MG (46644 UT) (66676 UT) (22297 UT) Clopidogrel Clopidogrel No 1{table QD Clopidogre Bisulfate Bisulfate t} l 75 MG 75 MG Bisulfate 75 MG Venlafaxine Venlafaxine No 1{capsu QD Venlafaxin HCl ER 75 HCl ER 75 le_with e HCl ER MG MG _food} 75 MG traZODone traZODone No traZODone HCl 100 MG HCl 100 MG HCl 100 MG Aspirin 81 Aspirin 81 No Aspirin 81 MG MG MG Zofran 4 MG Zofran 4 MG No 1{table QD Zofran 4 t_as_ne MG eded} ProAir HFA ProAir HFA No 2{puffs QID ProAir HFA 108 (90 108 (90 _as_nee 108 (90 Base) Base) ded} Base) MCG/ACT MCG/ACT MCG/ACT Synthroid Synthroid No QD Synthroid 25 MCG 25 MCG 25 MCG Linzess 145 Linzess 145 No 1{capsu QD Linzess mcg mcg le} 145 mcg HYDROcodone HYDROcodone No 1{table QID HYDROcodon -Acetaminop -Acetaminop t_as_ne e-Acetamin hen 5-325 hen 5-325 eded} ophen MG MG 5-325 MG Gabapentin Gabapentin No Gabapentin 100 MG 100 MG 100 MG Aspirin 81 Aspirin 81 No Aspirin 81 MG MG MG Furosemide Furosemide No 1{table QD Furosemide 20 MG 20 MG t} 20 MG NexIUM 40 NexIUM 40 No NexIUM 40 MG MG MG Aspirin Low Aspirin Low No Aspirin Dose 81 MG Dose 81 MG Low Dose 81 MG Aspirin 81 Aspirin 81 No Aspirin 81 MG MG MG Venlafaxine Venlafaxine No Venlafaxin HCl ER 150 HCl ER 150 e HCl ER MG MG 150 MG Trelegy Trelegy No 1{puff} QD Trelegy Ellipta Ellipta Ellipta 100-62.5-25 100-62.5-25 100-62.5-2 MCG/INH MCG/INH 5 MCG/INH Zofran 4 MG Zofran 4 MG No 1{table TID Zofran 4 t_as_ne MG eded} ProAir HFA ProAir HFA No 2{puffs QID ProAir HFA 108 (90 108 (90 _as_nee 108 (90 Base) Base) ded} Base) MCG/ACT MCG/ACT MCG/ACT Clopidogrel Clopidogrel No 1{table QD Clopidogre Bisulfate Bisulfate t} l 75 MG 75 MG Bisulfate 75 MG Hydrocodone Hydrocodone No 1{table QD Hydrocodon -Acetaminop -Acetaminop t} e-Acetamin hen 5-325 hen 5-325 ophen MG MG 5-325 MG Vitamin D3 Vitamin D3 No Vitamin D3 1.25 MG 1.25 MG 1.25 MG (68144 UT) (01483 UT) (70305 UT) HYDROcodone HYDROcodone No 1{table QD HYDROcodon -Acetaminop -Acetaminop t} e-Acetamin hen 5-325 hen 5-325 ophen MG MG 5-325 MG Aspirin Low Aspirin Low No Aspirin Dose 81 MG Dose 81 MG Low Dose 81 MG Trelegy Trelegy No 1{puff} QD Trelegy Ellipta Ellipta Ellipta 100-62.5-25 100-62.5-25 100-62.5-2 MCG/INH MCG/INH 5 MCG/INH Simvastatin Simvastatin No Simvastati 40 MG 40 MG n 40 MG Linzess 145 Linzess 145 No 1{capsu QD Linzess mcg mcg le} 145 mcg Synthroid Synthroid No QD Synthroid 25 MCG 25 MCG 25 MCG Aspirin 81 Aspirin 81 No Aspirin 81 MG MG MG Atenolol Atenolol No QD Atenolol 100 MG 100 MG 100 MG Venlafaxine Venlafaxine No Venlafaxin HCl ER 150 HCl ER 150 e HCl ER MG MG 150 MG NexIUM 40 NexIUM 40 No NexIUM 40 MG MG MG Atenolol Atenolol No Atenolol 100 MG 100 MG 100 MG ProAir HFA ProAir HFA No 2{puffs QID ProAir HFA 108 (90 108 (90 _as_nee 108 (90 Base) Base) ded} Base) MCG/ACT MCG/ACT MCG/ACT HYDROcodone HYDROcodone No 1{table QID HYDROcodon -Acetaminop -Acetaminop t_as_ne e-Acetamin hen 5-325 hen 5-325 eded} ophen MG MG 5-325 MG Furosemide Furosemide No 1{table QD Furosemide 20 MG 20 MG t} 20 MG Levothyroxi Levothyroxi No Levothyrox ne Sodium ne Sodium ine Sodium 25 MCG 25 MCG 25 MCG Aspirin 81 Aspirin 81 No Aspirin 81 MG MG MG Gabapentin Gabapentin No Gabapentin 100 MG 100 MG 100 MG Venlafaxine Venlafaxine No 1{capsu QD Venlafaxin HCl ER 75 HCl ER 75 le_with e HCl ER MG MG _food} 75 MG Zofran 4 MG Zofran 4 MG No 1{table QD Zofran 4 t_as_ne MG eded} traZODone traZODone No traZODone HCl 100 MG HCl 100 MG HCl 100 MG Spironolact Spironolact No 1{table QD Spironolac one 25 MG one 25 MG t} tone 25 MG Trelegy Trelegy No 1{puff} QD Trelegy Ellipta Ellipta Ellipta 100-62.5-25 100-62.5-25 100-62.5-2 MCG/INH MCG/INH 5 MCG/INH Furosemide Furosemide No 1{table QD Furosemide 20 MG 20 MG t} 20 MG Clopidogrel Clopidogrel No 1{table QD Clopidogre Bisulfate Bisulfate t} l 75 MG 75 MG Bisulfate 75 MG Atenolol Atenolol No QD Atenolol 100 MG 100 MG 100 MG Linzess 145 Linzess 145 No 1{capsu QD Linzess mcg mcg le} 145 mcg Levothyroxi Levothyroxi No Levothyrox ne Sodium ne Sodium ine Sodium 50 MCG 50 MCG 50 MCG Vitamin D3 Vitamin D3 No Vitamin D3 1.25 MG 1.25 MG 1.25 MG (76984 UT) (35753 UT) (63902 UT) HYDROcodone HYDROcodone No 1{table QD HYDROcodon -Acetaminop -Acetaminop t} e-Acetamin hen 5-325 hen 5-325 ophen MG MG 5-325 MG Aspirin Low Aspirin Low No Aspirin Dose 81 MG Dose 81 MG Low Dose 81 MG Simvastatin Simvastatin No Simvastati 40 MG 40 MG n 40 MG Synthroid Synthroid No QD Synthroid 25 MCG 25 MCG 25 MCG Linzess 145 Linzess 145 No 1{capsu QD Linzess mcg mcg le} 145 mcg Synthroid Synthroid No QD Synthroid 25 MCG 25 MCG 25 MCG Aspirin 81 Aspirin 81 No Aspirin 81 MG MG MG Atenolol Atenolol No QD Atenolol 100 MG 100 MG 100 MG Venlafaxine Venlafaxine No Venlafaxin HCl ER 150 HCl ER 150 e HCl ER MG MG 150 MG NexIUM 40 NexIUM 40 No NexIUM 40 MG MG MG Atenolol Atenolol No Atenolol 100 MG 100 MG 100 MG ProAir HFA ProAir HFA No 2{puffs QID ProAir HFA 108 (90 108 (90 _as_nee 108 (90 Base) Base) ded} Base) MCG/ACT MCG/ACT MCG/ACT HYDROcodone HYDROcodone No 1{table QID HYDROcodon -Acetaminop -Acetaminop t_as_ne e-Acetamin hen 5-325 hen 5-325 eded} ophen MG MG 5-325 MG Levothyroxi Levothyroxi No Levothyrox ne Sodium ne Sodium ine Sodium 25 MCG 25 MCG 25 MCG Nexium 40 Nexium 40 No Nexium 40 MG MG MG Aspirin 81 Aspirin 81 No Aspirin 81 MG MG MG Gabapentin Gabapentin No Gabapentin 100 MG 100 MG 100 MG Venlafaxine Venlafaxine No 1{capsu QD Venlafaxin HCl ER 75 HCl ER 75 le_with e HCl ER MG MG _food} 75 MG Zofran 4 MG Zofran 4 MG No 1{table QD Zofran 4 t_as_ne MG eded} traZODone traZODone No traZODone HCl 100 MG HCl 100 MG HCl 100 MG Spironolact Spironolact No 1{table QD Spironolac one 25 MG one 25 MG t} tone 25 MG Trelegy Trelegy No 1{puff} QD Trelegy Ellipta Ellipta Ellipta 100-62.5-25 100-62.5-25 100-62.5-2 MCG/INH MCG/INH 5 MCG/INH Furosemide Furosemide No 1{table QD Furosemide 20 MG 20 MG t} 20 MG Clopidogrel Clopidogrel No 1{table QD Clopidogre Bisulfate Bisulfate t} l 75 MG 75 MG Bisulfate 75 MG Venlafaxine Venlafaxine No 1{capsu QD Venlafaxin HCl ER 75 HCl ER 75 le_with e HCl ER MG MG _food} 75 MG Hydrocodone Hydrocodone No 1{table QID Hydrocodon -Acetaminop -Acetaminop t_as_ne e-Acetamin hen 5-325 hen 5-325 eded} ophen MG MG 5-325 MG Spironolact Spironolact No 1{table QD Spironolac one 25 MG one 25 MG t} tone 25 MG Simvastatin Simvastatin No 1{table QD Simvastati 40 MG 40 MG t_in_th n 40 MG e_eveni ng} Aspirin 81 Aspirin 81 No Aspirin 81 MG MG MG Gabapentin Gabapentin No Gabapentin 100 MG 100 MG 100 MG Aspirin 81 Aspirin 81 No Aspirin 81 MG MG MG Spironolact Spironolact No 1{table QD Spironolac one 25 MG one 25 MG t} tone 25 MG Furosemide Furosemide No 1{table QD Furosemide 20 MG 20 MG t} 20 MG HYDROcodone HYDROcodone No 1{table QD HYDROcodon -Acetaminop -Acetaminop t} e-Acetamin hen 5-325 hen 5-325 ophen MG MG 5-325 MG Atenolol Atenolol No QD Atenolol 100 MG 100 MG 100 MG Levothyroxi Levothyroxi No Levothyrox ne Sodium ne Sodium ine Sodium 25 MCG 25 MCG 25 MCG Simvastatin Simvastatin No 1{table QD Simvastati 40 MG 40 MG t_in_th n 40 MG e_eveni ng} NexIUM 40 NexIUM 40 No NexIUM 40 MG MG MG Atenolol Atenolol No Atenolol 100 MG 100 MG 100 MG HYDROcodone HYDROcodone No 1{table QID HYDROcodon -Acetaminop -Acetaminop t_as_ne e-Acetamin hen 5-325 hen 5-325 eded} ophen MG MG 5-325 MG Aspirin 81 Aspirin 81 No Aspirin 81 MG MG MG Venlafaxine Venlafaxine No Venlafaxin HCl ER 150 HCl ER 150 e HCl ER MG MG 150 MG Aspirin Low Aspirin Low No Aspirin Dose 81 MG Dose 81 MG Low Dose 81 MG Zofran 4 MG Zofran 4 MG No 1{table QD Zofran 4 t_as_ne MG eded} Gabapentin Gabapentin No Gabapentin 100 MG 100 MG 100 MG Venlafaxine Venlafaxine No 1{capsu QD Venlafaxin HCl ER 75 HCl ER 75 le_with e HCl ER MG MG _food} 75 MG Trelegy Trelegy No 1{puff} QD Trelegy Ellipta Ellipta Ellipta 100-62.5-25 100-62.5-25 100-62.5-2 MCG/INH MCG/INH 5 MCG/INH Linzess 145 Linzess 145 No 1{capsu QD Linzess mcg mcg le} 145 mcg Vitamin D3 Vitamin D3 No Vitamin D3 1.25 MG 1.25 MG 1.25 MG (33577 UT) (07009 UT) (36497 UT) Venlafaxine Venlafaxine No QD Venlafaxin HCl ER 150 HCl ER 150 e HCl ER MG MG 150 MG traZODone traZODone No traZODone HCl 100 MG HCl 100 MG HCl 100 MG Simvastatin Simvastatin No Simvastati 40 MG 40 MG n 40 MG Synthroid Synthroid No QD Synthroid 25 MCG 25 MCG 25 MCG Rosuvastati Rosuvastati No Rosuvastat n Calcium n Calcium in Calcium 20 MG 20 MG 20 MG ProAir HFA ProAir HFA No 2{puffs QID ProAir HFA 108 (90 108 (90 _as_nee 108 (90 Base) Base) ded} Base) MCG/ACT MCG/ACT MCG/ACT Clopidogrel Clopidogrel No 1{table QD Clopidogre Bisulfate Bisulfate t} l 75 MG 75 MG Bisulfate 75 MG Simvastatin Simvastatin No 1{table QD Simvastati 40 MG 40 MG t_in_th n 40 MG e_eveni ng} Vitamin D3 Vitamin D3 No Vitamin D3 1.25 MG 1.25 MG 1.25 MG (04469 UT) (37749 UT) (31266 UT) Aspirin 81 Aspirin 81 No Aspirin 81 MG MG MG Spironolact Spironolact No 1{table QD Spironolac one 25 MG one 25 MG t} tone 25 MG NexIUM 40 NexIUM 40 No NexIUM 40 MG MG MG Levothyroxi Levothyroxi No Levothyrox ne Sodium ne Sodium ine Sodium 25 MCG 25 MCG 25 MCG Atenolol Atenolol No QD Atenolol 100 MG 100 MG 100 MG Trelegy Trelegy No 1{puff} QD Trelegy Ellipta Ellipta Ellipta 100-62.5-25 100-62.5-25 100-62.5-2 MCG/INH MCG/INH 5 MCG/INH Atenolol Atenolol No Atenolol 100 MG 100 MG 100 MG Venlafaxine Venlafaxine No 1{capsu QD Venlafaxin HCl ER 75 HCl ER 75 le_with e HCl ER MG MG _food} 75 MG HYDROcodone HYDROcodone No 1{table QID HYDROcodon -Acetaminop -Acetaminop t_as_ne e-Acetamin hen 5-325 hen 5-325 eded} ophen MG MG 5-325 MG Venlafaxine Venlafaxine No Venlafaxin HCl ER 150 HCl ER 150 e HCl ER MG MG 150 MG Venlafaxine Venlafaxine No QD Venlafaxin HCl ER 150 HCl ER 150 e HCl ER MG MG 150 MG Linzess 145 Linzess 145 No 1{capsu QD Linzess mcg mcg le} 145 mcg traZODone traZODone No traZODone HCl 100 MG HCl 100 MG HCl 100 MG Aspirin Low Aspirin Low No Aspirin Dose 81 MG Dose 81 MG Low Dose 81 MG Zofran 4 MG Zofran 4 MG No 1{table QD Zofran 4 t_as_ne MG eded} HYDROcodone HYDROcodone No 1{table QD HYDROcodon -Acetaminop -Acetaminop t} e-Acetamin hen 5-325 hen 5-325 ophen MG MG 5-325 MG Gabapentin Gabapentin No Gabapentin 100 MG 100 MG 100 MG Furosemide Furosemide No 1{table QD Furosemide 20 MG 20 MG t} 20 MG Aspirin 81 Aspirin 81 No Aspirin 81 MG MG MG Simvastatin Simvastatin No Simvastati 40 MG 40 MG n 40 MG Synthroid Synthroid No QD Synthroid 25 MCG 25 MCG 25 MCG Rosuvastati Rosuvastati No Rosuvastat n Calcium n Calcium in Calcium 20 MG 20 MG 20 MG ProAir HFA ProAir HFA No 2{puffs QID ProAir HFA 108 (90 108 (90 _as_nee 108 (90 Base) Base) ded} Base) MCG/ACT MCG/ACT MCG/ACT Clopidogrel Clopidogrel No 1{table QD Clopidogre Bisulfate Bisulfate t} l 75 MG 75 MG Bisulfate 75 MG Simvastatin Simvastatin No 1{table QD Simvastati 40 MG 40 MG t_in_th n 40 MG e_eveni ng} Vitamin D3 Vitamin D3 No Vitamin D3 1.25 MG 1.25 MG 1.25 MG ( UT) ( UT) ( UT) Aspirin 81 Aspirin 81 No Aspirin 81 MG MG MG Spironolact Spironolact No 1{table QD Spironolac one 25 MG one 25 MG t} tone 25 MG NexIUM 40 NexIUM 40 No NexIUM 40 MG MG MG Levothyroxi Levothyroxi No Levothyrox ne Sodium ne Sodium ine Sodium 25 MCG 25 MCG 25 MCG Atenolol Atenolol No QD Atenolol 100 MG 100 MG 100 MG Trelegy Trelegy No 1{puff} QD Trelegy Ellipta Ellipta Ellipta 100-62.5-25 100-62.5-25 100-62.5-2 MCG/INH MCG/INH 5 MCG/INH Atenolol Atenolol No Atenolol 100 MG 100 MG 100 MG Venlafaxine Venlafaxine No 1{capsu QD Venlafaxin HCl ER 75 HCl ER 75 le_with e HCl ER MG MG _food} 75 MG HYDROcodone HYDROcodone No 1{table QID HYDROcodon -Acetaminop -Acetaminop t_as_ne e-Acetamin hen 5-325 hen 5-325 eded} ophen MG MG 5-325 MG Venlafaxine Venlafaxine No Venlafaxin HCl ER 150 HCl ER 150 e HCl ER MG MG 150 MG Venlafaxine Venlafaxine No QD Venlafaxin HCl ER 150 HCl ER 150 e HCl ER MG MG 150 MG Linzess 145 Linzess 145 No 1{capsu QD Linzess mcg mcg le} 145 mcg traZODone traZODone No traZODone HCl 100 MG HCl 100 MG HCl 100 MG Aspirin Low Aspirin Low No Aspirin Dose 81 MG Dose 81 MG Low Dose 81 MG Zofran 4 MG Zofran 4 MG No 1{table QD Zofran 4 t_as_ne MG eded} HYDROcodone HYDROcodone No 1{table QD HYDROcodon -Acetaminop -Acetaminop t} e-Acetamin hen 5-325 hen 5-325 ophen MG MG 5-325 MG Gabapentin Gabapentin No Gabapentin 100 MG 100 MG 100 MG Furosemide Furosemide No 1{table QD Furosemide 20 MG 20 MG t} 20 MG Aspirin 81 Aspirin 81 No Aspirin 81 MG MG MG Simvastatin Simvastatin No Simvastati 40 MG 40 MG n 40 MG Synthroid Synthroid No QD Synthroid 25 MCG 25 MCG 25 MCG Rosuvastati Rosuvastati No Rosuvastat n Calcium n Calcium in Calcium 20 MG 20 MG 20 MG ProAir HFA ProAir HFA No 2{puffs QID ProAir HFA 108 (90 108 (90 _as_nee 108 (90 Base) Base) ded} Base) MCG/ACT MCG/ACT MCG/ACT Clopidogrel Clopidogrel No 1{table QD Clopidogre Bisulfate Bisulfate t} l 75 MG 75 MG Bisulfate 75 MG Linzess 145 Linzess 145 No 1{capsu QD Linzess mcg mcg le} 145 mcg Aspirin Low Aspirin Low No Aspirin Dose 81 MG Dose 81 MG Low Dose 81 MG Levothyroxi Levothyroxi No Levothyrox ne Sodium ne Sodium ine Sodium 50 MCG 50 MCG 50 MCG ProAir HFA ProAir HFA No 2{puffs QID ProAir HFA 108 (90 108 (90 _as_nee 108 (90 Base) Base) ded} Base) MCG/ACT MCG/ACT MCG/ACT Zofran 4 MG Zofran 4 MG No 1{table TID Zofran 4 t_as_ne MG eded} Furosemide Furosemide No 1{table QD Furosemide 20 MG 20 MG t} 20 MG Aspirin 81 Aspirin 81 No Aspirin 81 MG MG MG Simvastatin Simvastatin No 1{table QD Simvastati 40 MG 40 MG t_in_th n 40 MG e_eveni ng} Synthroid Synthroid No QD Synthroid 25 MCG 25 MCG 25 MCG Hydrocodone Hydrocodone No 1{table QD Hydrocodon -Acetaminop -Acetaminop t} e-Acetamin hen 5-325 hen 5-325 ophen MG MG 5-325 MG Trelegy Trelegy No 1{puff} QD Trelegy Ellipta Ellipta Ellipta 100-62.5-25 100-62.5-25 100-62.5-2 MCG/INH MCG/INH 5 MCG/INH Nexium 40 Nexium 40 No Nexium 40 MG MG MG Aspirin 81 Aspirin 81 No Aspirin 81 MG MG MG Venlafaxine Venlafaxine No QD Venlafaxin HCl ER 150 HCl ER 150 e HCl ER MG MG 150 MG Clopidogrel Clopidogrel No 1{table QD Clopidogre Bisulfate Bisulfate t} l 75 MG 75 MG Bisulfate 75 MG Gabapentin Gabapentin No Gabapentin 100 MG 100 MG 100 MG Hydrocodone Hydrocodone No 1{table QID Hydrocodon -Acetaminop -Acetaminop t_as_ne e-Acetamin hen 5-325 hen 5-325 eded} ophen MG MG 5-325 MG Vitamin D3 Vitamin D3 No 1{capsu Vitamin D3 11659 UNIT 41477 UNIT le} 28636 UNIT Atenolol Atenolol No QD Atenolol 100 MG 100 MG 100 MG Spironolact Spironolact No 1{table QD Spironolac one 25 MG one 25 MG t} tone 25 MG Clopidogrel Clopidogrel No 1{table QD Clopidogre Bisulfate Bisulfate t} l 75 MG 75 MG Bisulfate 75 MG Spironolact Spironolact No 1{table QD Spironolac one 25 MG one 25 MG t} tone 25 MG ProAir HFA ProAir HFA No 2{puffs QID ProAir HFA 108 (90 108 (90 _as_nee 108 (90 Base) Base) ded} Base) MCG/ACT MCG/ACT MCG/ACT Vitamin D3 Vitamin D3 No 1{capsu Vitamin D3 45572 UNIT 75391 UNIT le} 61841 UNIT Zofran 4 MG Zofran 4 MG No 1{table TID Zofran 4 t_as_ne MG eded} Hydrocodone Hydrocodone No 1{table QD Hydrocodon -Acetaminop -Acetaminop t} e-Acetamin hen 5-325 hen 5-325 ophen MG MG 5-325 MG Levothyroxi Levothyroxi No Levothyrox ne Sodium ne Sodium ine Sodium 50 MCG 50 MCG 50 MCG Linzess 145 Linzess 145 No 1{capsu QD Linzess mcg mcg le} 145 mcg Aspirin 81 Aspirin 81 No Aspirin 81 MG MG MG Furosemide Furosemide No 1{table QD Furosemide 20 MG 20 MG t} 20 MG Venlafaxine Venlafaxine No QD Venlafaxin HCl ER 150 HCl ER 150 e HCl ER MG MG 150 MG Simvastatin Simvastatin No 1{table QD Simvastati 40 MG 40 MG t_in_th n 40 MG e_eveni ng} Synthroid Synthroid No QD Synthroid 25 MCG 25 MCG 25 MCG Gabapentin Gabapentin No Gabapentin 100 MG 100 MG 100 MG Hydrocodone Hydrocodone No 1{table QID Hydrocodon -Acetaminop -Acetaminop t_as_ne e-Acetamin hen 5-325 hen 5-325 eded} ophen MG MG 5-325 MG Nexium 40 Nexium 40 No Nexium 40 MG MG MG Aspirin Low Aspirin Low No Aspirin Dose 81 MG Dose 81 MG Low Dose 81 MG Atenolol Atenolol No QD Atenolol 100 MG 100 MG 100 MG Aspirin 81 Aspirin 81 No Aspirin 81 MG MG MG Trelegy Trelegy No 1{puff} QD Trelegy Ellipta Ellipta Ellipta 100-62.5-25 100-62.5-25 100-62.5-2 MCG/INH MCG/INH 5 MCG/INH Clopidogrel Clopidogrel No 1{table QD Clopidogre Bisulfate Bisulfate t} l 75 MG 75 MG Bisulfate 75 MG ProAir HFA ProAir HFA No 2{puffs QID ProAir HFA 108 (90 108 (90 _as_nee 108 (90 Base) Base) ded} Base) MCG/ACT MCG/ACT MCG/ACT Trelegy Trelegy No 1{puff} QD Trelegy Ellipta Ellipta Ellipta 100-62.5-25 100-62.5-25 100-62.5-2 MCG/INH MCG/INH 5 MCG/INH Gabapentin Gabapentin No Gabapentin 100 MG 100 MG 100 MG Aspirin Low Aspirin Low No Aspirin Dose 81 MG Dose 81 MG Low Dose 81 MG Nexium 40 Nexium 40 No Nexium 40 MG MG MG Simvastatin Simvastatin No 1{table QD Simvastati 40 MG 40 MG t_in_th n 40 MG e_eveni ng} Vitamin D3 Vitamin D3 No 1{capsu Vitamin D3 50155 UNIT 27324 UNIT le} 67110 UNIT Atenolol Atenolol No QD Atenolol 100 MG 100 MG 100 MG Zofran 4 MG Zofran 4 MG No 1{table TID Zofran 4 t_as_ne MG eded} Hydrocodone Hydrocodone No 1{table QD Hydrocodon -Acetaminop -Acetaminop t} e-Acetamin hen 5-325 hen 5-325 ophen MG MG 5-325 MG Aspirin 81 Aspirin 81 No Aspirin 81 MG MG MG Venlafaxine Venlafaxine No QD Venlafaxin HCl ER 150 HCl ER 150 e HCl ER MG MG 150 MG Linzess 145 Linzess 145 No 1{capsu QD Linzess mcg mcg le} 145 mcg Hydrocodone Hydrocodone No 1{table QID Hydrocodon -Acetaminop -Acetaminop t_as_ne e-Acetamin hen 5-325 hen 5-325 eded} ophen MG MG 5-325 MG Spironolact Spironolact No 1{table QD Spironolac one 25 MG one 25 MG t} tone 25 MG Aspirin 81 Aspirin 81 No Aspirin 81 MG MG MG Furosemide Furosemide No 1{table QD Furosemide 20 MG 20 MG t} 20 MG Levothyroxi Levothyroxi No Levothyrox ne Sodium ne Sodium ine Sodium 50 MCG 50 MCG 50 MCG Synthroid Synthroid No QD Synthroid 25 MCG 25 MCG 25 MCG Hydrocodone Hydrocodone No 1{table QD Hydrocodon -Acetaminop -Acetaminop t} e-Acetamin hen 5-325 hen 5-325 ophen MG MG 5-325 MG Nexium 40 Nexium 40 No Nexium 40 MG MG MG Aspirin Low Aspirin Low No Aspirin Dose 81 MG Dose 81 MG Low Dose 81 MG Trelegy Trelegy No 1{puff} QD Trelegy Ellipta Ellipta Ellipta 100-62.5-25 100-62.5-25 100-62.5-2 MCG/INH MCG/INH 5 MCG/INH Linzess 145 Linzess 145 No 1{capsu QD Linzess mcg mcg le} 145 mcg Atenolol Atenolol No QD Atenolol 100 MG 100 MG 100 MG ProAir HFA ProAir HFA No 2{puffs QID ProAir HFA 108 (90 108 (90 _as_nee 108 (90 Base) Base) ded} Base) MCG/ACT MCG/ACT MCG/ACT Levothyroxi Levothyroxi No Levothyrox ne Sodium ne Sodium ine Sodium 50 MCG 50 MCG 50 MCG Venlafaxine Venlafaxine No QD Venlafaxin HCl ER 150 HCl ER 150 e HCl ER MG MG 150 MG Aspirin 81 Aspirin 81 No Aspirin 81 MG MG MG Clopidogrel Clopidogrel No 1{table QD Clopidogre Bisulfate Bisulfate t} l 75 MG 75 MG Bisulfate 75 MG Zofran 4 MG Zofran 4 MG No 1{table TID Zofran 4 t_as_ne MG eded} Furosemide Furosemide No 1{table QD Furosemide 20 MG 20 MG t} 20 MG Aspirin 81 Aspirin 81 No Aspirin 81 MG MG MG Synthroid Synthroid No QD Synthroid 25 MCG 25 MCG 25 MCG Simvastatin Simvastatin No 1{table QD Simvastati 40 MG 40 MG t_in_th n 40 MG e_eveni ng} Spironolact Spironolact No 1{table QD Spironolac one 25 MG one 25 MG t} tone 25 MG Atenolol Atenolol No Atenolol 100 MG 100 MG 100 MG Hydrocodone Hydrocodone No 1{table QID Hydrocodon -Acetaminop -Acetaminop t_as_ne e-Acetamin hen 5-325 hen 5-325 eded} ophen MG MG 5-325 MG Vitamin D3 Vitamin D3 No 1{capsu Vitamin D3 25925 UNIT 51534 UNIT le} 60711 UNIT Gabapentin Gabapentin No Gabapentin 100 MG 100 MG 100 MG Hydrocodone Hydrocodone No 1{table QD Hydrocodon -Acetaminop -Acetaminop t} e-Acetamin hen 5-325 hen 5-325 ophen MG MG 5-325 MG Nexium 40 Nexium 40 No Nexium 40 MG MG MG Aspirin Low Aspirin Low No Aspirin Dose 81 MG Dose 81 MG Low Dose 81 MG Trelegy Trelegy No 1{puff} QD Trelegy Ellipta Ellipta Ellipta 100-62.5-25 100-62.5-25 100-62.5-2 MCG/INH MCG/INH 5 MCG/INH Linzess 145 Linzess 145 No 1{capsu QD Linzess mcg mcg le} 145 mcg Atenolol Atenolol No QD Atenolol 100 MG 100 MG 100 MG ProAir HFA ProAir HFA No 2{puffs QID ProAir HFA 108 (90 108 (90 _as_nee 108 (90 Base) Base) ded} Base) MCG/ACT MCG/ACT MCG/ACT Levothyroxi Levothyroxi No Levothyrox ne Sodium ne Sodium ine Sodium 50 MCG 50 MCG 50 MCG Venlafaxine Venlafaxine No QD Venlafaxin HCl ER 150 HCl ER 150 e HCl ER MG MG 150 MG Aspirin 81 Aspirin 81 No Aspirin 81 MG MG MG Clopidogrel Clopidogrel No 1{table QD Clopidogre Bisulfate Bisulfate t} l 75 MG 75 MG Bisulfate 75 MG Zofran 4 MG Zofran 4 MG No 1{table TID Zofran 4 t_as_ne MG eded} Furosemide Furosemide No 1{table QD Furosemide 20 MG 20 MG t} 20 MG Aspirin 81 Aspirin 81 No Aspirin 81 MG MG MG Synthroid Synthroid No QD Synthroid 25 MCG 25 MCG 25 MCG Simvastatin Simvastatin No 1{table QD Simvastati 40 MG 40 MG t_in_th n 40 MG e_eveni ng} Spironolact Spironolact No 1{table QD Spironolac one 25 MG one 25 MG t} tone 25 MG Atenolol Atenolol No Atenolol 100 MG 100 MG 100 MG Hydrocodone Hydrocodone No 1{table QID Hydrocodon -Acetaminop -Acetaminop t_as_ne e-Acetamin hen 5-325 hen 5-325 eded} ophen MG MG 5-325 MG Vitamin D3 Vitamin D3 No 1{capsu Vitamin D3 70061 UNIT 88731 UNIT le} 85871 UNIT Gabapentin Gabapentin No Gabapentin 100 MG 100 MG 100 MG Hydrocodone Hydrocodone No 1{table QD Hydrocodon -Acetaminop -Acetaminop t} e-Acetamin hen 5-325 hen 5-325 ophen MG MG 5-325 MG Nexium 40 Nexium 40 No Nexium 40 MG MG MG Aspirin Low Aspirin Low No Aspirin Dose 81 MG Dose 81 MG Low Dose 81 MG Trelegy Trelegy No 1{puff} QD Trelegy Ellipta Ellipta Ellipta 100-62.5-25 100-62.5-25 100-62.5-2 MCG/INH MCG/INH 5 MCG/INH Linzess 145 Linzess 145 No 1{capsu QD Linzess mcg mcg le} 145 mcg Atenolol Atenolol No QD Atenolol 100 MG 100 MG 100 MG ProAir HFA ProAir HFA No 2{puffs QID ProAir HFA 108 (90 108 (90 _as_nee 108 (90 Base) Base) ded} Base) MCG/ACT MCG/ACT MCG/ACT Levothyroxi Levothyroxi No Levothyrox ne Sodium ne Sodium ine Sodium 50 MCG 50 MCG 50 MCG Venlafaxine Venlafaxine No QD Venlafaxin HCl ER 150 HCl ER 150 e HCl ER MG MG 150 MG Aspirin 81 Aspirin 81 No Aspirin 81 MG MG MG Clopidogrel Clopidogrel No 1{table QD Clopidogre Bisulfate Bisulfate t} l 75 MG 75 MG Bisulfate 75 MG Zofran 4 MG Zofran 4 MG No 1{table TID Zofran 4 t_as_ne MG eded} Furosemide Furosemide No 1{table QD Furosemide 20 MG 20 MG t} 20 MG Aspirin 81 Aspirin 81 No Aspirin 81 MG MG MG Synthroid Synthroid No QD Synthroid 25 MCG 25 MCG 25 MCG Simvastatin Simvastatin No 1{table QD Simvastati 40 MG 40 MG t_in_th n 40 MG e_eveni ng} Spironolact Spironolact No 1{table QD Spironolac one 25 MG one 25 MG t} tone 25 MG Atenolol Atenolol No Atenolol 100 MG 100 MG 100 MG Hydrocodone Hydrocodone No 1{table QID Hydrocodon -Acetaminop -Acetaminop t_as_ne e-Acetamin hen 5-325 hen 5-325 eded} ophen MG MG 5-325 MG Vitamin D3 Vitamin D3 No 1{capsu Vitamin D3 77397 UNIT 02693 UNIT le} 78360 UNIT Gabapentin Gabapentin No Gabapentin 100 MG 100 MG 100 MG Hydrocodone Hydrocodone No 1{table QD Hydrocodon -Acetaminop -Acetaminop t} e-Acetamin hen 5-325 hen 5-325 ophen MG MG 5-325 MG Nexium 40 Nexium 40 No Nexium 40 MG MG MG Aspirin Low Aspirin Low No Aspirin Dose 81 MG Dose 81 MG Low Dose 81 MG Trelegy Trelegy No 1{puff} QD Trelegy Ellipta Ellipta Ellipta 100-62.5-25 100-62.5-25 100-62.5-2 MCG/INH MCG/INH 5 MCG/INH Linzess 145 Linzess 145 No 1{capsu QD Linzess mcg mcg le} 145 mcg Atenolol Atenolol No QD Atenolol 100 MG 100 MG 100 MG ProAir HFA ProAir HFA No 2{puffs QID ProAir HFA 108 (90 108 (90 _as_nee 108 (90 Base) Base) ded} Base) MCG/ACT MCG/ACT MCG/ACT Levothyroxi Levothyroxi No Levothyrox ne Sodium ne Sodium ine Sodium 50 MCG 50 MCG 50 MCG Venlafaxine Venlafaxine No QD Venlafaxin HCl ER 150 HCl ER 150 e HCl ER MG MG 150 MG Aspirin 81 Aspirin 81 No Aspirin 81 MG MG MG Clopidogrel Clopidogrel No 1{table QD Clopidogre Bisulfate Bisulfate t} l 75 MG 75 MG Bisulfate 75 MG Zofran 4 MG Zofran 4 MG No 1{table TID Zofran 4 t_as_ne MG eded} Furosemide Furosemide No 1{table QD Furosemide 20 MG 20 MG t} 20 MG Aspirin 81 Aspirin 81 No Aspirin 81 MG MG MG Synthroid Synthroid No QD Synthroid 25 MCG 25 MCG 25 MCG Simvastatin Simvastatin No 1{table QD Simvastati 40 MG 40 MG t_in_th n 40 MG e_eveni ng} Spironolact Spironolact No 1{table QD Spironolac one 25 MG one 25 MG t} tone 25 MG Atenolol Atenolol No Atenolol 100 MG 100 MG 100 MG Hydrocodone Hydrocodone No 1{table QID Hydrocodon -Acetaminop -Acetaminop t_as_ne e-Acetamin hen 5-325 hen 5-325 eded} ophen MG MG 5-325 MG Vitamin D3 Vitamin D3 No 1{capsu Vitamin D3 22664 UNIT 57568 UNIT le} 08301 UNIT Gabapentin Gabapentin No Gabapentin 100 MG 100 MG 100 MG Hydrocodone Hydrocodone No 1{table QD Hydrocodon -Acetaminop -Acetaminop t} e-Acetamin hen 5-325 hen 5-325 ophen MG MG 5-325 MG Gabapentin Gabapentin No Gabapentin 100 MG 100 MG 100 MG Aspirin Low Aspirin Low No Aspirin Dose 81 MG Dose 81 MG Low Dose 81 MG Clopidogrel Clopidogrel No 1{table QD Clopidogre Bisulfate Bisulfate t} l 75 MG 75 MG Bisulfate 75 MG Linzess 145 Linzess 145 No 1{capsu QD Linzess mcg mcg le} 145 mcg Aspirin 81 Aspirin 81 No Aspirin 81 MG MG MG Simvastatin Simvastatin No 1{table QD Simvastati 40 MG 40 MG t_in_th n 40 MG e_eveni ng} Furosemide Furosemide No 1{table QD Furosemide 20 MG 20 MG t} 20 MG Levothyroxi Levothyroxi No Levothyrox ne Sodium ne Sodium ine Sodium 50 MCG 50 MCG 50 MCG Aspirin 81 Aspirin 81 No Aspirin 81 MG MG MG Venlafaxine Venlafaxine No QD Venlafaxin HCl ER 150 HCl ER 150 e HCl ER MG MG 150 MG ProAir HFA ProAir HFA No 2{puffs QID ProAir HFA 108 (90 108 (90 _as_nee 108 (90 Base) Base) ded} Base) MCG/ACT MCG/ACT MCG/ACT Nexium 40 Nexium 40 No Nexium 40 MG MG MG Zofran 4 MG Zofran 4 MG No 1{table TID Zofran 4 t_as_ne MG eded} Venlafaxine Venlafaxine No 1{capsu QD Venlafaxin HCl ER 75 HCl ER 75 le_with e HCl ER MG MG _food} 75 MG Synthroid Synthroid No QD Synthroid 25 MCG 25 MCG 25 MCG Atenolol Atenolol No Atenolol 100 MG 100 MG 100 MG Vitamin D3 Vitamin D3 No 1{capsu Vitamin D3 85710 UNIT 11440 UNIT le} 29835 UNIT Hydrocodone Hydrocodone No 1{table QID Hydrocodon -Acetaminop -Acetaminop t_as_ne e-Acetamin hen 5-325 hen 5-325 eded} ophen MG MG 5-325 MG Trelegy Trelegy No 1{puff} QD Trelegy Ellipta Ellipta Ellipta 100-62.5-25 100-62.5-25 100-62.5-2 MCG/INH MCG/INH 5 MCG/INH Spironolact Spironolact No 1{table QD Spironolac one 25 MG one 25 MG t} tone 25 MG Synthroid Synthroid No QD Synthroid 25 MCG 25 MCG 25 MCG Aspirin Low Aspirin Low No Aspirin Dose 81 MG Dose 81 MG Low Dose 81 MG Venlafaxine Venlafaxine No 1{capsu QD Venlafaxin HCl ER 75 HCl ER 75 le_with e HCl ER MG MG _food} 75 MG Aspirin 81 Aspirin 81 No Aspirin 81 MG MG MG Furosemide Furosemide No 1{table QD Furosemide 20 MG 20 MG t} 20 MG Hydrocodone Hydrocodone No 1{table QD Hydrocodon -Acetaminop -Acetaminop t} e-Acetamin hen 5-325 hen 5-325 ophen MG MG 5-325 MG Simvastatin Simvastatin No 1{table QD Simvastati 40 MG 40 MG t_in_th n 40 MG e_eveni ng} Zofran 4 MG Zofran 4 MG No 1{table QD Zofran 4 t_as_ne MG eded} Clopidogrel Clopidogrel No 1{table QD Clopidogre Bisulfate Bisulfate t} l 75 MG 75 MG Bisulfate 75 MG Gabapentin Gabapentin No Gabapentin 100 MG 100 MG 100 MG Atenolol Atenolol No Atenolol 100 MG 100 MG 100 MG Spironolact Spironolact No 1{table QD Spironolac one 25 MG one 25 MG t} tone 25 MG Trelegy Trelegy No 1{puff} QD Trelegy Ellipta Ellipta Ellipta 100-62.5-25 100-62.5-25 100-62.5-2 MCG/INH MCG/INH 5 MCG/INH Levothyroxi Levothyroxi No Levothyrox ne Sodium ne Sodium ine Sodium 50 MCG 50 MCG 50 MCG Hydrocodone Hydrocodone No 1{table QID Hydrocodon -Acetaminop -Acetaminop t_as_ne e-Acetamin hen 5-325 hen 5-325 eded} ophen MG MG 5-325 MG Nexium 40 Nexium 40 No Nexium 40 MG MG MG Venlafaxine Venlafaxine No QD Venlafaxin HCl ER 150 HCl ER 150 e HCl ER MG MG 150 MG Vitamin D3 Vitamin D3 No 1{capsu Vitamin D3 51377 UNIT 78279 UNIT le} 69844 UNIT ProAir HFA ProAir HFA No 2{puffs QID ProAir HFA 108 (90 108 (90 _as_nee 108 (90 Base) Base) ded} Base) MCG/ACT MCG/ACT MCG/ACT Linzess 145 Linzess 145 No 1{capsu QD Linzess mcg mcg le} 145 mcg Aspirin 81 Aspirin 81 No Aspirin 81 MG MG MG Synthroid Synthroid No QD Synthroid 25 MCG 25 MCG 25 MCG Aspirin Low Aspirin Low No Aspirin Dose 81 MG Dose 81 MG Low Dose 81 MG Venlafaxine Venlafaxine No 1{capsu QD Venlafaxin HCl ER 75 HCl ER 75 le_with e HCl ER MG MG _food} 75 MG Aspirin 81 Aspirin 81 No Aspirin 81 MG MG MG Furosemide Furosemide No 1{table QD Furosemide 20 MG 20 MG t} 20 MG Hydrocodone Hydrocodone No 1{table QD Hydrocodon -Acetaminop -Acetaminop t} e-Acetamin hen 5-325 hen 5-325 ophen MG MG 5-325 MG Simvastatin Simvastatin No 1{table QD Simvastati 40 MG 40 MG t_in_th n 40 MG e_eveni ng} Zofran 4 MG Zofran 4 MG No 1{table QD Zofran 4 t_as_ne MG eded} Clopidogrel Clopidogrel No 1{table QD Clopidogre Bisulfate Bisulfate t} l 75 MG 75 MG Bisulfate 75 MG Gabapentin Gabapentin No Gabapentin 100 MG 100 MG 100 MG Atenolol Atenolol No Atenolol 100 MG 100 MG 100 MG Spironolact Spironolact No 1{table QD Spironolac one 25 MG one 25 MG t} tone 25 MG Trelegy Trelegy No 1{puff} QD Trelegy Ellipta Ellipta Ellipta 100-62.5-25 100-62.5-25 100-62.5-2 MCG/INH MCG/INH 5 MCG/INH Levothyroxi Levothyroxi No Levothyrox ne Sodium ne Sodium ine Sodium 50 MCG 50 MCG 50 MCG Hydrocodone Hydrocodone No 1{table QID Hydrocodon -Acetaminop -Acetaminop t_as_ne e-Acetamin hen 5-325 hen 5-325 eded} ophen MG MG 5-325 MG Nexium 40 Nexium 40 No Nexium 40 MG MG MG Venlafaxine Venlafaxine No QD Venlafaxin HCl ER 150 HCl ER 150 e HCl ER MG MG 150 MG Vitamin D3 Vitamin D3 No 1{capsu Vitamin D3 51684 UNIT 47633 UNIT le} 82222 UNIT ProAir HFA ProAir HFA No 2{puffs QID ProAir HFA 108 (90 108 (90 _as_nee 108 (90 Base) Base) ded} Base) MCG/ACT MCG/ACT MCG/ACT Linzess 145 Linzess 145 No 1{capsu QD Linzess mcg mcg le} 145 mcg Aspirin 81 Aspirin 81 No Aspirin 81 MG MG MG Synthroid Synthroid No QD Synthroid 25 MCG 25 MCG 25 MCG Aspirin Low Aspirin Low No Aspirin Dose 81 MG Dose 81 MG Low Dose 81 MG Venlafaxine Venlafaxine No 1{capsu QD Venlafaxin HCl ER 75 HCl ER 75 le_with e HCl ER MG MG _food} 75 MG Aspirin 81 Aspirin 81 No Aspirin 81 MG MG MG Furosemide Furosemide No 1{table QD Furosemide 20 MG 20 MG t} 20 MG Hydrocodone Hydrocodone No 1{table QD Hydrocodon -Acetaminop -Acetaminop t} e-Acetamin hen 5-325 hen 5-325 ophen MG MG 5-325 MG Simvastatin Simvastatin No 1{table QD Simvastati 40 MG 40 MG t_in_th n 40 MG e_eveni ng} Zofran 4 MG Zofran 4 MG No 1{table QD Zofran 4 t_as_ne MG eded} Clopidogrel Clopidogrel No 1{table QD Clopidogre Bisulfate Bisulfate t} l 75 MG 75 MG Bisulfate 75 MG Gabapentin Gabapentin No Gabapentin 100 MG 100 MG 100 MG Venlafaxine Venlafaxine No QD Venlafaxin HCl ER 150 HCl ER 150 e HCl ER MG MG 150 MG Spironolact Spironolact No 1{table QD Spironolac one 25 MG one 25 MG t} tone 25 MG Trelegy Trelegy No 1{puff} QD Trelegy Ellipta Ellipta Ellipta 100-62.5-25 100-62.5-25 100-62.5-2 MCG/INH MCG/INH 5 MCG/INH Levothyroxi Levothyroxi No Levothyrox ne Sodium ne Sodium ine Sodium 50 MCG 50 MCG 50 MCG Hydrocodone Hydrocodone No 1{table QID Hydrocodon -Acetaminop -Acetaminop t_as_ne e-Acetamin hen 5-325 hen 5-325 eded} ophen MG MG 5-325 MG Nexium 40 Nexium 40 No Nexium 40 MG MG MG Atenolol Atenolol No Atenolol 100 MG 100 MG 100 MG Vitamin D3 Vitamin D3 No 1{capsu Vitamin D3 27263 UNIT 66941 UNIT le} 43941 UNIT ProAir HFA ProAir HFA No 2{puffs QID ProAir HFA 108 (90 108 (90 _as_nee 108 (90 Base) Base) ded} Base) MCG/ACT MCG/ACT MCG/ACT Linzess 145 Linzess 145 No 1{capsu QD Linzess mcg mcg le} 145 mcg Aspirin 81 Aspirin 81 No Aspirin 81 MG MG MG Synthroid Synthroid No QD Synthroid 25 MCG 25 MCG 25 MCG Aspirin Low Aspirin Low No Aspirin Dose 81 MG Dose 81 MG Low Dose 81 MG Venlafaxine Venlafaxine No 1{capsu QD Venlafaxin HCl ER 75 HCl ER 75 le_with e HCl ER MG MG _food} 75 MG Aspirin 81 Aspirin 81 No Aspirin 81 MG MG MG Furosemide Furosemide No 1{table QD Furosemide 20 MG 20 MG t} 20 MG Hydrocodone Hydrocodone No 1{table QD Hydrocodon -Acetaminop -Acetaminop t} e-Acetamin hen 5-325 hen 5-325 ophen MG MG 5-325 MG Simvastatin Simvastatin No 1{table QD Simvastati 40 MG 40 MG t_in_th n 40 MG e_eveni ng} Zofran 4 MG Zofran 4 MG No 1{table QD Zofran 4 t_as_ne MG eded} Clopidogrel Clopidogrel No 1{table QD Clopidogre Bisulfate Bisulfate t} l 75 MG 75 MG Bisulfate 75 MG Gabapentin Gabapentin No Gabapentin 100 MG 100 MG 100 MG Venlafaxine Venlafaxine No QD Venlafaxin HCl ER 150 HCl ER 150 e HCl ER MG MG 150 MG Spironolact Spironolact No 1{table QD Spironolac one 25 MG one 25 MG t} tone 25 MG Trelegy Trelegy No 1{puff} QD Trelegy Ellipta Ellipta Ellipta 100-62.5-25 100-62.5-25 100-62.5-2 MCG/INH MCG/INH 5 MCG/INH Levothyroxi Levothyroxi No Levothyrox ne Sodium ne Sodium ine Sodium 50 MCG 50 MCG 50 MCG Hydrocodone Hydrocodone No 1{table QID Hydrocodon -Acetaminop -Acetaminop t_as_ne e-Acetamin hen 5-325 hen 5-325 eded} ophen MG MG 5-325 MG Nexium 40 Nexium 40 No Nexium 40 MG MG MG Atenolol Atenolol No Atenolol 100 MG 100 MG 100 MG Vitamin D3 Vitamin D3 No 1{capsu Vitamin D3 64911 UNIT 61423 UNIT le} 19334 UNIT ProAir HFA ProAir HFA No 2{puffs QID ProAir HFA 108 (90 108 (90 _as_nee 108 (90 Base) Base) ded} Base) MCG/ACT MCG/ACT MCG/ACT Linzess 145 Linzess 145 No 1{capsu QD Linzess mcg mcg le} 145 mcg Aspirin 81 Aspirin 81 No Aspirin 81 MG MG MG Atenolol Atenolol No Atenolol 100 MG 100 MG 100 MG ProAir HFA ProAir HFA No 2{puffs QID ProAir HFA 108 (90 108 (90 _as_nee 108 (90 Base) Base) ded} Base) MCG/ACT MCG/ACT MCG/ACT Venlafaxine Venlafaxine No 1{capsu QD Venlafaxin HCl ER 75 HCl ER 75 le_with e HCl ER MG MG _food} 75 MG Nexium 40 Nexium 40 No Nexium 40 MG MG MG Aspirin Low Aspirin Low No Aspirin Dose 81 MG Dose 81 MG Low Dose 81 MG Zofran 4 MG Zofran 4 MG No 1{table QD Zofran 4 t_as_ne MG eded} Synthroid Synthroid No QD Synthroid 25 MCG 25 MCG 25 MCG Venlafaxine Venlafaxine No QD Venlafaxin HCl ER 150 HCl ER 150 e HCl ER MG MG 150 MG Spironolact Spironolact No 1{table QD Spironolac one 25 MG one 25 MG t} tone 25 MG Gabapentin Gabapentin No Gabapentin 100 MG 100 MG 100 MG Atenolol Atenolol No QD Atenolol 100 MG 100 MG 100 MG Hydrocodone Hydrocodone No 1{table QD Hydrocodon -Acetaminop -Acetaminop t} e-Acetamin hen 5-325 hen 5-325 ophen MG MG 5-325 MG Trelegy Trelegy No 1{puff} QD Trelegy Ellipta Ellipta Ellipta 100-62.5-25 100-62.5-25 100-62.5-2 MCG/INH MCG/INH 5 MCG/INH Vitamin D3 Vitamin D3 No 1{capsu Vitamin D3 64158 UNIT 43596 UNIT le} 37735 UNIT Linzess 145 Linzess 145 No 1{capsu QD Linzess mcg mcg le} 145 mcg Synthroid Synthroid No QD Synthroid 25 MCG 25 MCG 25 MCG Clopidogrel Clopidogrel No 1{table QD Clopidogre Bisulfate Bisulfate t} l 75 MG 75 MG Bisulfate 75 MG Furosemide Furosemide No 1{table QD Furosemide 20 MG 20 MG t} 20 MG Simvastatin Simvastatin No 1{table QD Simvastati 40 MG 40 MG t_in_th n 40 MG e_eveni ng} Venlafaxine Venlafaxine No QD Venlafaxin HCl ER 150 HCl ER 150 e HCl ER MG MG 150 MG Hydrocodone Hydrocodone No 1{table QID Hydrocodon -Acetaminop -Acetaminop t_as_ne e-Acetamin hen 5-325 hen 5-325 eded} ophen MG MG 5-325 MG Aspirin 81 Aspirin 81 No Aspirin 81 MG MG MG Levothyroxi Levothyroxi No Levothyrox ne Sodium ne Sodium ine Sodium 50 MCG 50 MCG 50 MCG Aspirin 81 Aspirin 81 No Aspirin 81 MG MG MG Aspirin 81 Aspirin 81 No Aspirin 81 MG MG MG Simvastatin Simvastatin No 1{table QD Simvastati 40 MG 40 MG t_in_th n 40 MG e_eveni ng} Clopidogrel Clopidogrel No 1{table QD Clopidogre Bisulfate Bisulfate t} l 75 MG 75 MG Bisulfate 75 MG Vitamin D3 Vitamin D3 No 1{capsu Vitamin D3 50867 UNIT 02380 UNIT le} 61341 UNIT ProAir HFA ProAir HFA No 2{puffs QID ProAir HFA 108 (90 108 (90 _as_nee 108 (90 Base) Base) ded} Base) MCG/ACT MCG/ACT MCG/ACT Atenolol Atenolol No Atenolol 100 MG 100 MG 100 MG NexIUM 40 NexIUM 40 No NexIUM 40 MG MG MG HYDROcodone HYDROcodone No 1{table QD HYDROcodon -Acetaminop -Acetaminop t} e-Acetamin hen 5-325 hen 5-325 ophen MG MG 5-325 MG Synthroid Synthroid No QD Synthroid 25 MCG 25 MCG 25 MCG Aspirin 81 Aspirin 81 No Aspirin 81 MG MG MG Linzess 145 Linzess 145 No 1{capsu QD Linzess mcg mcg le} 145 mcg Spironolact Spironolact No 1{table QD Spironolac one 25 MG one 25 MG t} tone 25 MG Aspirin Low Aspirin Low No Aspirin Dose 81 MG Dose 81 MG Low Dose 81 MG Zofran 4 MG Zofran 4 MG No 1{table QD Zofran 4 t_as_ne MG eded} Levothyroxi Levothyroxi No Levothyrox ne Sodium ne Sodium ine Sodium 50 MCG 50 MCG 50 MCG Synthroid Synthroid No QD Synthroid 25 MCG 25 MCG 25 MCG Atenolol Atenolol No QD Atenolol 100 MG 100 MG 100 MG Venlafaxine Venlafaxine No 1{capsu QD Venlafaxin HCl ER 75 HCl ER 75 le_with e HCl ER MG MG _food} 75 MG Venlafaxine Venlafaxine No QD Venlafaxin HCl ER 150 HCl ER 150 e HCl ER MG MG 150 MG Venlafaxine Venlafaxine No QD Venlafaxin HCl ER 150 HCl ER 150 e HCl ER MG MG 150 MG Furosemide Furosemide No 1{table QD Furosemide 20 MG 20 MG t} 20 MG Gabapentin Gabapentin No Gabapentin 100 MG 100 MG 100 MG HYDROcodone HYDROcodone No 1{table QID HYDROcodon -Acetaminop -Acetaminop t_as_ne e-Acetamin hen 5-325 hen 5-325 eded} ophen MG MG 5-325 MG Trelegy Trelegy No 1{puff} QD Trelegy Ellipta Ellipta Ellipta 100-62.5-25 100-62.5-25 100-62.5-2 MCG/INH MCG/INH 5 MCG/INH Simvastatin Simvastatin No 1{table QD Simvastati 40 MG 40 MG t_in_ n 40 MG e_eveni ng} Venlafaxine Venlafaxine No 1{capsu QD Venlafaxin HCl ER 75 HCl ER 75 le_with e HCl ER MG MG _food} 75 MG Aspirin 81 Aspirin 81 No Aspirin 81 MG MG MG HYDROcodone HYDROcodone No 1{table QID HYDROcodon -Acetaminop -Acetaminop t_as_ne e-Acetamin hen 5-325 hen 5-325 eded} ophen MG MG 5-325 MG Linzess 145 Linzess 145 No 1{capsu QD Linzess mcg mcg le} 145 mcg Venlafaxine Venlafaxine No QD Venlafaxin HCl ER 150 HCl ER 150 e HCl ER MG MG 150 MG Gabapentin Gabapentin No Gabapentin 100 MG 100 MG 100 MG Synthroid Synthroid No QD Synthroid 25 MCG 25 MCG 25 MCG HYDROcodone HYDROcodone No 1{table QD HYDROcodon -Acetaminop -Acetaminop t} e-Acetamin hen 5-325 hen 5-325 ophen MG MG 5-325 MG ProAir HFA ProAir HFA No 2{puffs QID ProAir HFA 108 (90 108 (90 _as_nee 108 (90 Base) Base) ded} Base) MCG/ACT MCG/ACT MCG/ACT Clopidogrel Clopidogrel No 1{table QD Clopidogre Bisulfate Bisulfate t} l 75 MG 75 MG Bisulfate 75 MG Synthroid Synthroid No QD Synthroid 25 MCG 25 MCG 25 MCG Furosemide Furosemide No 1{table QD Furosemide 20 MG 20 MG t} 20 MG NexIUM 40 NexIUM 40 No NexIUM 40 MG MG MG Zofran 4 MG Zofran 4 MG No 1{table QD Zofran 4 t_as_ne MG eded} Atenolol Atenolol No Atenolol 100 MG 100 MG 100 MG Trelegy Trelegy No 1{puff} QD Trelegy Ellipta Ellipta Ellipta 100-62.5-25 100-62.5-25 100-62.5-2 MCG/INH MCG/INH 5 MCG/INH Aspirin 81 Aspirin 81 No Aspirin 81 MG MG MG Spironolact Spironolact No 1{table QD Spironolac one 25 MG one 25 MG t} tone 25 MG Levothyroxi Levothyroxi No Levothyrox ne Sodium ne Sodium ine Sodium 50 MCG 50 MCG 50 MCG Venlafaxine Venlafaxine No QD Venlafaxin HCl ER 150 HCl ER 150 e HCl ER MG MG 150 MG Aspirin Low Aspirin Low No Aspirin Dose 81 MG Dose 81 MG Low Dose 81 MG Vitamin D3 Vitamin D3 No 1{capsu Vitamin D3 72571 UNIT 44465 UNIT le} 64360 UNIT Aspirin 81 Aspirin 81 No Aspirin 81 MG MG MG Immunizations Ordered Filled Immunization Date Status Comments Sourc e Immunization Name Name FLUZONE HIGH DOSE FLUZONE HIGH DOSE 2022-04-29 Completed [facility] - OVER 65 OVER 65 14:36:00 [facility] FLUZONE HIGH DOSE FLUZONE HIGH DOSE 2022-04-29 Completed [facility] - OVER 65 OVER 65 14:36:00 [facility] FLUZONE HIGH DOSE FLUZONE HIGH DOSE 2022-04-29 Completed [facility] - OVER 65 OVER 65 14:36:00 [facility] Vitamin B12 Vitamin B12 2021-03-23 [facility]Cyan[facility] (Cyanocobalamin) 09:40:00 [facility] Vitamin B12 Vitamin B12 2021-03-23 [facility] (Cyanocobalamin[facility] (Cyanocobalamin) 09:40:00 [facility] Vitamin B12 Vitamin B12 2021-02-15 [facility] (Cyanoc[facility]amin[facility] (Cyanocobalamin) 08:57:00 [facility] Vitamin B12 Vitamin B12 2021-02-15 [facility] (Cyanocobalamin) (Cyanocobalamin) 08:57:00 [facility] Vitamin B12 Vitamin B12 2021-02-15 [facility] (Cyanocobalamin) (Cyanocobalamin) 08:57:00 [facility] Vitamin B12 Vitamin B12 2021-02-15 [facility] (Cyanocobalamin) (Cyanocobalamin) 08:57:00 [facility] Vitamin B12 Vitamin B12 2021-02-15 [facility] (Cyanocobalamin) (Cyanocobalamin) 08:57:00 [facility] Vitamin B12 Vitamin B12 2020-12-21 [facility]pleted [facility] (Cyanocobalamin) (Cyanocobalamin) 14:20:00 [facility] Vitamin B12 Vitamin B12 2020-12-21 [facility] (Cyanocobalamin) (Cyanocobalamin) 14:20:00 [facility] Vitamin B12 Vitamin B12 2020-12-21 Completed [facility] (Cyanocobalamin) (Cyanocobalamin) 14:20:00 [facility] Vitamin B12 Vitamin B12 2020-12-21 [facility]pleted [facility] (Cyanocobalamin) (Cyanocobalamin) 14:20:00 [facility] Vitamin B12 Vitamin B12 2020-12-21 [facility]pleted [facility] (Cyanocobalamin) (Cyanocobalamin) 14:20:00 [facility] Vitamin B12 Vitamin B12 2020-12-21 [facility] (Cyanocobalamin) (Cyanocobalamin) 14:20:00 [facility] Vitamin B12 Vitamin B12 2020-12-21 [facility]pleted [facility] (Cyanocobalamin) (Cyanocobalamin) 14:20:00 [facility] Vitamin B12 Vitamin B12 2020-12-21 Completed [facility] (Cyanocobalamin) (Cyanocobalamin) 14:20:00 [facility] Vitamin B12 Vitamin B12 2020-12-21 Completed [facility] (Cyanocobalamin) (Cyanocobalamin) 14:20:00 [facility] Vitamin B12 Vitamin B12 2020-12-21 [facility]pleted [facility] (Cyanocobalamin) (Cyanocobalamin) 14:20:00 [facility] Vitamin B12 Vitamin B12 2020-12-21 Completed [facility] (Cyanocobalamin) (Cyanocobalamin) 14:20:00 [facility] Vitamin B12 Vitamin B12 2020-12-21 Completed [facility] (Cyanocobalamin) (Cyanocobalamin) 14:20:00 [facility] Vitamin B12 Vitamin B12 2020-12-21 Completed [facility] (Cyanocobalamin) (Cyanocobalamin) 14:20:00 [facility] Vitamin B12 Vitamin B12 2020-12-21 Completed [facility] (Cyanocobalamin) (Cyanocobalamin) 14:20:00 [facility] Vitamin B12 Vitamin B12 2020-12-21 Completed [facility] (Cyanocobalamin) (Cyanocobalamin) 14:20:00 [facility] Vitamin B12 Vitamin B12 2020-12-05 Completed [facility] (Cyanocobalamin) (Cyanocobalamin) 10:29:00 [facility] Vitamin B12 Vitamin B12 2020-12-05 Completed [facility] (Cyanocobalamin) (Cyanocobalamin) 10:29:00 [facility] Vitamin B12 Vitamin B12 2020-12-05 Completed [facility] (Cyanocobalamin) (Cyanocobalamin) 10:29:00 [facility] Vitamin B12 Vitamin B12 2020-12-05 Completed [facility] (Cyanocobalamin) (Cyanocobalamin) 10:29:00 [facility] Vitamin B12 Vitamin B12 2020-12-05 Completed [facility] (Cyanocobalamin) (Cyanocobalamin) 10:29:00 [facility] Vitamin B12 Vitamin B12 2020-12-05 Completed [facility] (Cyanocobalamin) (Cyanocobalamin) 10:29:00 [facility] Vitamin B12 Vitamin B12 2020-12-05 Completed [facility] (Cyanocobalamin) (Cyanocobalamin) 10:29:00 [facility] Vitamin B12 Vitamin B12 2020-12-05 [facility]pleted [facility] (Cyanocobalamin) (Cyanocobalamin) 10:29:00 [facility] Vitamin B12 Vitamin B12 2020-12-05 Completed [facility] (Cyanocobalamin) (Cyanocobalamin) 10:29:00 [facility] Vitamin B12 Vitamin B12 2020-12-05 Completed [facility] (Cyanocobalamin) (Cyanocobalamin) 10:29:00 [facility] Vitamin B12 Vitamin B12 2020-12-05 Completed [facility] (Cyanocobalamin) (Cyanocobalamin) 10:29:00 [facility] Vitamin B12 Vitamin B12 2020-12-05 Completed [facility] (Cyanocobalamin) (Cyanocobalamin) 10:29:00 [facility] Vitamin B12 Vitamin B12 2020-12-05 Completed [facility] (Cyanocobalamin) (Cyanocobalamin) 10:29:00 [facility] Vitamin B12 Vitamin B12 2020-12-05 Completed [facility] (Cyanocobalamin) (Cyanocobalamin) 10:29:00 [facility] Vitamin B12 Vitamin B12 2020-12-05 Completed [facility] (Cyanocobalamin) (Cyanocobalamin) 10:29:00 [facility] Vitamin B12 Vitamin B12 2020-12-05 Completed [facility] (Cyanocobalamin) (Cyanocobalamin) 10:29:00 [facility] Vitamin B12 Vitamin B12 2020-10-26 Completed [facility] (Cyanocobalamin) (Cyanocobalamin) 16:27:00 [facility] Vitamin B12 Vitamin B12 2020-10-26 Completed [facility] (Cyanocobalamin) (Cyanocobalamin) 16:27:00 [facility] Vitamin B12 Vitamin B12 2020-10-26 Completed [facility] (Cyanocobalamin) (Cyanocobalamin) 16:27:00 [facility] Vitamin B12 Vitamin B12 2020-10-26 Completed [facility] (Cyanocobalamin) (Cyanocobalamin) 16:27:00 [facility] Vitamin B12 Vitamin B12 2020-10-26 Completed [facility] (Cyanocobalamin) (Cyanocobalamin) 16:27:00 [facility] Vitamin B12 Vitamin B12 2020-10-26 Completed [facility] (Cyanocobalamin) (Cyanocobalamin) 16:27:00 [facility] Vitamin B12 Vitamin B12 2020-10-26 Completed [facility] (Cyanocobalamin) (Cyanocobalamin) 16:27:00 [facility] Vitamin B12 Vitamin B12 2020-10-26 Completed [facility] (Cyanocobalamin) (Cyanocobalamin) 16:27:00 [facility] Vitamin B12 Vitamin B12 2020-10-26 Completed [facility] (Cyanocobalamin) (Cyanocobalamin) 16:27:00 [facility] Vitamin B12 Vitamin B12 2020-10-26 Completed [facility] (Cyanocobalamin) (Cyanocobalamin) 16:27:00 [facility] Vitamin B12 Vitamin B12 2020-10-26 Completed [facility] (Cyanocobalamin) (Cyanocobalamin) 16:27:00 [facility] Vitamin B12 Vitamin B12 2020-10-26 Completed [facility] (Cyanocobalamin) (Cyanocobalamin) 16:27:00 [facility] Vitamin B12 Vitamin B12 2020-10-26 Completed [facility] (Cyanocobalamin) (Cyanocobalamin) 16:27:00 [facility] Vitamin B12 Vitamin B12 2020-10-26 Completed [facility] (Cyanocobalamin) (Cyanocobalamin) 16:27:00 [facility] Vitamin B12 Vitamin B12 2020-10-26 Completed [facility] (Cyanocobalamin) (Cyanocobalamin) 16:27:00 [facility] Vitamin B12 Vitamin B12 2020-10-26 Completed [facility] (Cyanocobalamin) (Cyanocobalamin) 16:27:00 [facility] Vitamin B12 Vitamin B12 2020-10-26 Completed [facility] (Cyanocobalamin) (Cyanocobalamin) 16:27:00 [facility] Vitamin B12 Vitamin B12 2020-10-26 Completed [facility] (Cyanocobalamin) (Cyanocobalamin) 16:27:00 [facility] SARS-COV-2 COVID-19 2020-09-17 Completed [facility] VACCINE 00:00:00 [facility] SARS-COV-2 COVID-19 2020-09-17 Completed [facility] MODERNA VACCINE 00:00:00 [facility] SARS-COV-2 COVID-19 2020-09-17 Completed [facility] MODERNA VACCINE 00:00:00 [facility] SARS-COV-2 COVID-19 2020-09-17 Completed [facility] MODERNA VACCINE 00:00:00 [facility] SARS-COV-2 COVID-19 2020-09-17 Completed [facility] MODERNA VACCINE 00:00:00 [facility] SARS-COV-2 COVID-19 2020-09-17 Completed [facility] MODERNA VACCINE 00:00:00 [facility] SARS-COV-2 COVID-19 2020-09-17 Completed [facility] MODERNA VACCINE 00:00:00 [facility] SARS-COV-2 COVID-19 2020-09-17 Completed [facility] MODERNA VACCINE 00:00:00 [facility] SARS-COV-2 COVID-19 2020-09-17 Completed [facility] MODERNA VACCINE 00:00:00 [facility] SARS-COV-2 COVID-19 2020-09-17 Completed [facility] MODERNA VACCINE 00:00:00 [facility] SARS-COV-2 COVID-19 2020-09-17 Completed [facility] MODERNA VACCINE 00:00:00 [facility] SARS-COV-2 COVID-19 2020-09-17 Completed [facility] MODERNA VACCINE 00:00:00 [facility] SARS-COV-2 COVID-19 2020-09-17 Completed [facility] MODERNA VACCINE 00:00:00 [facility] SARS-COV-2 COVID-19 2020-09-17 Completed [facility] MODERNA VACCINE 00:00:00 [facility] SARS-COV-2 COVID-19 2020-09-17 Completed [facility] MODERNA VACCINE 00:00:00 [facility] SARS-COV-2 COVID-19 2020-09-17 Completed [facility] MODERNA VACCINE 00:00:00 [facility] SARS-COV-2 COVID-19 2020-09-17 Completed [facility] MODERNA VACCINE 00:00:00 [facility] SARS-COV-2 COVID-19 2020-09-17 Completed [facility] MODERNA VACCINE 00:00:00 [facility] SARS-COV-2 COVID-19 2020-09-17 Completed [facility] MODERNA VACCINE 00:00:00 [facility] SARS-COV-2 COVID-19 2020-09-17 Completed [facility] MODERNA VACCINE 00:00:00 [facility] SARS-COV-2 COVID-19 2020-09-17 Completed [facility] MODERNA VACCINE 00:00:00 [facility] SARS-COV-2 COVID-19 2020-09-17 Completed [facility] MODERNA 12+ YRS 00:00:00 [facility] Vitamin B12 Vitamin B12 2020-09-12 Completed [facility] (Cyanocobalamin) (Cyanocobalamin) 10:56:00 [facility] Vitamin B12 Vitamin B12 2020-09-12 Completed [facility] (Cyanocobalamin) (Cyanocobalamin) 10:56:00 [facility] Vitamin B12 Vitamin B12 2020-09-12 Completed [facility] (Cyanocobalamin) (Cyanocobalamin) 10:56:00 [facility] Vitamin B12 Vitamin B12 2020-09-12 Completed [facility] (Cyanocobalamin) (Cyanocobalamin) 10:56:00 [facility] Vitamin B12 Vitamin B12 2020-09-12 Completed [facility] (Cyanocobalamin) (Cyanocobalamin) 10:56:00 [facility] Vitamin B12 Vitamin B12 2020-09-12 Completed [facility] (Cyanocobalamin) (Cyanocobalamin) 10:56:00 [facility] Vitamin B12 Vitamin B12 2020-09-12 Completed [facility] (Cyanocobalamin) (Cyanocobalamin) 10:56:00 [facility] Vitamin B12 Vitamin B12 2020-09-12 Completed [facility] (Cyanocobalamin) (Cyanocobalamin) 10:56:00 [facility] Vitamin B12 Vitamin B12 2020-09-12 Completed [facility] (Cyanocobalamin) (Cyanocobalamin) 10:56:00 [facility] Vitamin B12 Vitamin B12 2020-09-12 Completed [facility] (Cyanocobalamin) (Cyanocobalamin) 10:56:00 [facility] Vitamin B12 Vitamin B12 2020-09-12 Completed [facility] (Cyanocobalamin) (Cyanocobalamin) 10:56:00 [facility] Vitamin B12 Vitamin B12 2020-09-12 Completed [facility] (Cyanocobalamin) (Cyanocobalamin) 10:56:00 [facility] Vitamin B12 Vitamin B12 2020-09-12 Completed [facility] (Cyanocobalamin) (Cyanocobalamin) 10:56:00 [facility] Vitamin B12 Vitamin B12 2020-09-12 Completed [facility] (Cyanocobalamin) (Cyanocobalamin) 10:56:00 [facility] Vitamin B12 Vitamin B12 2020-09-12 Completed [facility] (Cyanocobalamin) (Cyanocobalamin) 10:56:00 [facility] Vitamin B12 Vitamin B12 2020-09-12 Completed [facility] (Cyanocobalamin) (Cyanocobalamin) 10:56:00 [facility] Vitamin B12 Vitamin B12 2020-09-12 Completed Common Spiri t - (Cyanocobalamin) (Cyanocobalamin) 10:56:00 I [facility] Vitamin B12 Vitamin B12 2020-09-12 Completed Common Spiri t - (Cyanocobalamin) (Cyanocobalamin) 10:56:00 I [facility] Vitamin B12 Vitamin B12 2020-09-12 Completed Common Spiri t - (Cyanocobalamin) (Cyanocobalamin) 10:56:00 I [facility] Vitamin B12 Vitamin B12 2020-09-12 Completed Common Spiri t - (Cyanocobalamin) (Cyanocobalamin) 10:56:00 I [facility] Vitamin B12 Vitamin B12 2020-09-12 Completed Common Spiri t - (Cyanocobalamin) (Cyanocobalamin) 10:56:00 I [facility] Vitamin B12 Vitamin B12 2020-09-12 Completed Common Spiri t - (Cyanocobalamin) (Cyanocobalamin) 10:56:00 I [facility] SARS-COV-2 COVID-19 2020-08-20 Completed Unive rsity of MODERNA VACCINE 00:00:00 [facility] SARS-COV-2 COVID-19 2020-08-20 Completed Unive rsity of MODERNA VACCINE 00:00:00 [facility] SARS-COV-2 COVID-19 2020-08-20 Completed Unive rsity of MODERNA VACCINE 00:00:00 [facility] SARS-COV-2 COVID-19 2020-08-20 Completed Unive rsity of MODERNA VACCINE 00:00:00 [facility] SARS-COV-2 COVID-19 2020-08-20 Completed Unive rsity of MODERNA VACCINE 00:00:00 [facility] SARS-COV-2 COVID-19 2020-08-20 Completed [facility] MODERNA VACCINE 00:[facility]:00 [facility] SARS-COV-2 COVID-19 2020-08-20 Completed Unive rsity of MODERNA VACCINE 00:00:00 [place] [facility] SARS-COV-2 COVID-19 2020-08-20 Completed Unive rsity of MODERNA VACCINE 00:00:00 [facility] SARS-COV-2 COVID-19 2020-08-20 Completed Unive rsity of MODERNA VACCINE 00:00:00 [facility] SARS-COV-2 COVID-19 2020-08-20 Completed Unive rsity of MODERNA VACCINE 00:00:00 [facility] SARS-COV-2 COVID-19 2020-08-20 Completed Unive rsity of MODERNA VACCINE 00:00:00 [facility] SARS-COV-2 COVID-19 2020-08-20 Completed Unive rsity of MODERNA VACCINE 00:00:00 [facility] ical [facility] SARS-COV-2 COVID-19 2020-08-20 Completed Unive rsity of MODERNA VACCINE 00:00:00 [facility] SARS-COV-2 COVID-19 2020-08-20 Completed Unive rsity of MODERNA VACCINE 00:00:00 [facility] SARS-COV-2 COVID-19 2020-08-20 Completed Unive rsity of MODERNA VACCINE 00:00:00 [facility] SARS-COV-2 COVID-19 2020-08-20 Completed Unive rsity of MODERNA VACCINE 00:00:00 [facility] SARS-COV-2 COVID-19 2020-08-20 Completed Unive rsity of MODERNA VACCINE 00:00:00 [facility] SARS-COV-2 COVID-19 2020-08-20 Completed Unive rsity of MODERNA VACCINE 00:00:00 [facility] SARS-COV-2 COVID-19 2020-08-20 Completed Unive rsity of MODERNA VACCINE 00:00:00 [facility] SARS-COV-2 COVID-19 2020-08-20 Completed Unive rsity of MODERNA VACCINE 00:00:00 [facility] Branch SARS-COV-2 COVID-19 2020-08-20 Completed Unive rsity of MODERNA VACCINE 00:00:00 [facility] SARS-COV-2 COVID-19 2020-08-20 Completed Unive rsity of MODERNA 12+ YRS 00:00:00 [facility] VACCINE Branch Vitamin B12 Vitamin B12 2020-08-15 Completed Common Spiri t - (Cyanocobalamin) (Cyanocobalamin) 11:43:00 I [facility] Vitamin B12 Vitamin B12 2020-08-15 Completed Common Spiri t - (Cyanocobalamin) (Cyanocobalamin) 11:43:00 I [facility] Vitamin B12 Vitamin B12 2020-08-15 Completed Common Spiri t - (Cyanocobalamin) (Cyanocobalamin) 11:43:00 I [facility] Vitamin B12 Vitamin B12 2020-08-15 Completed Common Spiri t - (Cyanocobalamin) (Cyanocobalamin) 11:43:00 I [facility] Vitamin B12 Vitamin B12 2020-08-15 Completed Common Spiri t - (Cyanocobalamin) (Cyanocobalamin) 11:43:00 I [facility] Vitamin B12 Vitamin B12 2020-08-15 Completed Common Spiri t - (Cyanocobalamin) (Cyanocobalamin) 11:43:00 I [facility] Vitamin B12 Vitamin B12 2020-08-15 Completed Common Spiri t - (Cyanocobalamin) (Cyanocobalamin) 11:43:00 I [facility] Vitamin B12 Vitamin B12 2020-08-15 Completed Common Spiri t - (Cyanocobalamin) (Cyanocobalamin) 11:43:00 I [facility] Vitamin B12 Vitamin B12 2020-08-15 Completed Common Spiri t - (Cyanocobalamin) (Cyanocobalamin) 11:43:00 I [facility] Vitamin B12 Vitamin B12 2020-08-15 Completed Common Spiri t - (Cyanocobalamin) (Cyanocobalamin) 11:43:00 I [facility] Vitamin B12 Vitamin B12 2020-08-15 Completed Common Spiri t - (Cyanocobalamin) (Cyanocobalamin) 11:43:00 I [facility] Vitamin B12 Vitamin B12 2020-08-15 Completed Common Spiri t - (Cyanocobalamin) (Cyanocobalamin) 11:43:00 I [facility] Vitamin B12 Vitamin B12 2020-08-15 Completed Common Spiri t - (Cyanocobalamin) (Cyanocobalamin) 11:43:00 I [facility] Vitamin B12 Vitamin B12 2020-08-15 Completed Common Spiri t - (Cyanocobalamin) (Cyanocobalamin) 11:43:00 I [facility] Vitamin B12 Vitamin B12 2020-08-15 Completed Common Spiri t - (Cyanocobalamin) (Cyanocobalamin) 11:43:00 I [facility] Vitamin B12 Vitamin B12 2020-08-15 Completed Common Spiri t - (Cyanocobalamin) (Cyanocobalamin) 11:43:00 I [facility] Vitamin B12 Vitamin B12 2020-08-15 Completed Common Spiri t - (Cyanocobalamin) (Cyanocobalamin) 11:43:00 I [facility] Vitamin B12 Vitamin B12 2020-08-15 Completed Common Spiri t - (Cyanocobalamin) (Cyanocobalamin) 11:43:00 I [facility] Vitamin B12 Vitamin B12 2020-08-15 Completed Common Spiri t - (Cyanocobalamin) (Cyanocobalamin) 11:43:00 I [facility] Vitamin B12 Vitamin B12 2020-08-15 Completed Common Spiri t - (Cyanocobalamin) (Cyanocobalamin) 11:43:00 I [facility] Vitamin B12 Vitamin B12 2020-08-15 Completed Common Spiri t - (Cyanocobalamin) (Cyanocobalamin) 11:43:00 I [facility] Vitamin B12 Vitamin B12 2020-08-15 Completed Common Spiri t - (Cyanocobalamin) (Cyanocobalamin) 11:43:00 I [facility] Vitamin B12 Vitamin B12 2020-07-31 Completed Common Spiri t - (Cyanocobalamin) (Cyanocobalamin) 15:32:00 I [facility] Vitamin B12 Vitamin B12 2020-07-31 Completed Common Spiri t - (Cyanocobalamin) (Cyanocobalamin) 15:32:00 I [facility] Vitamin B12 Vitamin B12 2020-07-31 Completed Common Spiri t - (Cyanocobalamin) (Cyanocobalamin) 15:32:00 I [facility] Vitamin B12 Vitamin B12 2020-07-31 Completed Common Spiri t - (Cyanocobalamin) (Cyanocobalamin) 15:32:00 I [facility] Vitamin B12 Vitamin B12 2020-07-31 Completed Common Spiri t - (Cyanocobalamin) (Cyanocobalamin) 15:32:00 I [facility] Vitamin B12 Vitamin B12 2020-07-31 Completed Common Spiri t - (Cyanocobalamin) (Cyanocobalamin) 15:32:00 I [facility] Vitamin B12 Vitamin B12 2020-07-31 Completed Common Spiri t - (Cyanocobalamin) (Cyanocobalamin) 15:32:00 I [facility] Vitamin B12 Vitamin B12 2020-07-31 Completed Common Spiri t - (Cyanocobalamin) (Cyanocobalamin) 15:32:00 I [facility] Vitamin B12 Vitamin B12 2020-07-31 Completed Common Spiri t - (Cyanocobalamin) (Cyanocobalamin) 15:32:00 I [facility] Vitamin B12 Vitamin B12 2020-07-31 Completed Common Spiri t - (Cyanocobalamin) (Cyanocobalamin) 15:32:00 I [facility] Vitamin B12 Vitamin B12 2020-07-31 Completed Common Spiri t - (Cyanocobalamin) (Cyanocobalamin) 15:32:00 I [facility] Vitamin B12 Vitamin B12 2020-07-31 Completed Common Spiri t - (Cyanocobalamin) (Cyanocobalamin) 15:32:00 I [facility] Vitamin B12 Vitamin B12 2020-07-31 Completed Common Spiri t - (Cyanocobalamin) (Cyanocobalamin) 15:32:00 I [facility] Vitamin B12 Vitamin B12 2020-07-31 Completed Common Spiri t - (Cyanocobalamin) (Cyanocobalamin) 15:32:00 I [facility] Vitamin B12 Vitamin B12 2020-07-31 Completed Common Spiri t - (Cyanocobalamin) (Cyanocobalamin) 15:32:00 I [facility] Vitamin B12 Vitamin B12 2020-07-31 Completed Common Spiri t - (Cyanocobalamin) (Cyanocobalamin) 15:32:00 I [facility] Vitamin B12 Vitamin B12 2020-07-31 Completed Common Spiri t - (Cyanocobalamin) (Cyanocobalamin) 15:32:00 I [facility] Vitamin B12 Vitamin B12 2020-07-31 Completed Common Spiri t - (Cyanocobalamin) (Cyanocobalamin) 15:32:00 I [facility] Vitamin B12 Vitamin B12 2020-07-31 Completed Common Spiri t - (Cyanocobalamin) (Cyanocobalamin) 15:32:00 I [facility] Vitamin B12 Vitamin B12 2020-07-31 Completed Common Spiri t - (Cyanocobalamin) (Cyanocobalamin) 15:32:00 I [facility] Vitamin B12 Vitamin B12 2020-07-31 Completed Common Spiri t - (Cyanocobalamin) (Cyanocobalamin) 15:32:00 I [facility] Vitamin B12 Vitamin B12 2020-07-31 Completed Common Spiri t - (Cyanocobalamin) (Cyanocobalamin) 15:32:00 I [facility] Vitamin B12 Vitamin B12 2020-05-16 Completed Common Spiri t - (Cyanocobalamin) (Cyanocobalamin) 15:06:00 I [facility] Vitamin B12 Vitamin B12 2020-05-16 Completed Common Spiri t - (Cyanocobalamin) (Cyanocobalamin) 15:06:00 I [facility] Vitamin B12 Vitamin B12 2020-05-16 Completed Common Spiri t - (Cyanocobalamin) (Cyanocobalamin) 15:06:00 I [facility] Vitamin B12 Vitamin B12 2020-05-16 Completed Common Spiri t - (Cyanocobalamin) (Cyanocobalamin) 15:06:00 I [facility] Vitamin B12 Vitamin B12 2020-05-16 Completed Common Spiri t - (Cyanocobalamin) (Cyanocobalamin) 15:06:00 I [facility] Vitamin B12 Vitamin B12 2020-05-16 Completed Common Spiri t - (Cyanocobalamin) (Cyanocobalamin) 15:06:00 I [facility] Vitamin B12 Vitamin B12 2020-05-16 Completed Common Spiri t - (Cyanocobalamin) (Cyanocobalamin) 15:06:00 I [facility] Vitamin B12 Vitamin B12 2020-05-16 Completed Common Spiri t - (Cyanocobalamin) (Cyanocobalamin) 15:06:00 I [facility] Vitamin B12 Vitamin B12 2020-05-16 Completed Common Spiri t - (Cyanocobalamin) (Cyanocobalamin) 15:06:00 I [facility] Vitamin B12 Vitamin B12 2020-05-16 Completed Common Spiri t - (Cyanocobalamin) (Cyanocobalamin) 15:06:00 I [facility] Vitamin B12 Vitamin B12 2020-05-16 Completed Common Spiri t - (Cyanocobalamin) (Cyanocobalamin) 15:06:00 I [facility] Vitamin B12 Vitamin B12 2020-05-16 Completed Common Spiri t - (Cyanocobalamin) (Cyanocobalamin) 15:06:00 I [facility] Vitamin B12 Vitamin B12 2020-05-16 Completed Common Spiri t - (Cyanocobalamin) (Cyanocobalamin) 15:06:00 [facility] Vitamin B12 Vitamin B12 2020-05-16 Completed Common Spiri t - (Cyanocobalamin) (Cyanocobalamin) 15:06:00 I [facility] Vitamin B12 Vitamin B12 2020-05-16 Completed Common Spiri t - (Cyanocobalamin) (Cyanocobalamin) 15:06:00 I [facility] Vitamin B12 Vitamin B12 2020-05-16 Completed Common Spiri t - (Cyanocobalamin) (Cyanocobalamin) 15:06:00 [facility] Vitamin B12 Vitamin B12 2020-05-16 Completed Common Spiri t - (Cyanocobalamin) (Cyanocobalamin) 15:06:00 I [facility] Vitamin B12 Vitamin B12 2020-05-16 Completed Common Spiri t - (Cyanocobalamin) (Cyanocobalamin) 15:06:00 I [facility] Vitamin B12 Vitamin B12 2020-05-16 Completed Common Spiri t - (Cyanocobalamin) (Cyanocobalamin) 15:06:00 I [facility] Vitamin B12 Vitamin B12 2020-05-16 Completed Common Spiri t - (Cyanocobalamin) (Cyanocobalamin) 15:06:00 I [facility] Vitamin B12 Vitamin B12 2020-05-16 Completed Common Spiri t - (Cyanocobalamin) (Cyanocobalamin) 15:06:00 I [facility] Vitamin B12 Vitamin B12 2020-05-16 Completed Common Spiri t - (Cyanocobalamin) (Cyanocobalamin) 15:06:00 I [facility] Vitamin B12 Vitamin B12 2020-05-16 Completed Common Spiri t - (Cyanocobalamin) (Cyanocobalamin) 15:06:00 I [facility] Vitamin B12 Vitamin B12 2020-05-16 Completed Common Spiri t - (Cyanocobalamin) (Cyanocobalamin) 15:06:00 I [facility] Vitamin B12 Vitamin B12 2020-05-16 Completed Common Spiri t - (Cyanocobalamin) (Cyanocobalamin) 15:06:00 I [facility] Vitamin B12 Vitamin B12 2020-05-16 Completed Common Spiri t - (Cyanocobalamin) (Cyanocobalamin) 15:06:00 I [facility] Vitamin B12 Vitamin B12 2020-05-16 Completed Common Spiri t - (Cyanocobalamin) (Cyanocobalamin) 15:06:00 I [facility] Vitamin B12 Vitamin B12 2020-04-27 Completed Common Spiri t - (Cyanocobalamin) (Cyanocobalamin) 15:49:00 I [facility] Vitamin B12 Vitamin B12 2020-04-27 Completed Common Spiri t - (Cyanocobalamin) (Cyanocobalamin) 15:49:00 I [facility] Vitamin B12 Vitamin B12 2020-04-27 Completed Common Spiri t - (Cyanocobalamin) (Cyanocobalamin) 15:49:00 I [facility] Vitamin B12 Vitamin B12 2020-04-27 Completed Common Spiri t - (Cyanocobalamin) (Cyanocobalamin) 15:49:00 I [facility] Vitamin B12 Vitamin B12 2020-04-27 Completed Common Spiri t - (Cyanocobalamin) (Cyanocobalamin) 15:49:00 I [facility] Vitamin B12 Vitamin B12 2020-04-27 Completed Common Spiri t - (Cyanocobalamin) (Cyanocobalamin) 15:49:00 I [facility] Vitamin B12 Vitamin B12 2020-04-27 Completed Common Spiri t - (Cyanocobalamin) (Cyanocobalamin) 15:49:00 I [facility] Vitamin B12 Vitamin B12 2020-04-27 Completed Common Spiri t - (Cyanocobalamin) (Cyanocobalamin) 15:49:00 I [facility] Vitamin B12 Vitamin B12 2020-04-27 Completed Common Spiri t - (Cyanocobalamin) (Cyanocobalamin) 15:49:00 I [facility] Vitamin B12 Vitamin B12 2020-04-27 Completed Common Spiri t - (Cyanocobalamin) (Cyanocobalamin) 15:49:00 I [facility] Vitamin B12 Vitamin B12 2020-04-27 Completed Common Spiri t - (Cyanocobalamin) (Cyanocobalamin) 15:49:00 I [facility] Vitamin B12 Vitamin B12 2020-04-27 Completed Common Spiri t - (Cyanocobalamin) (Cyanocobalamin) 15:49:00 I [facility] Vitamin B12 Vitamin B12 2020-04-27 Completed Common Spiri t - (Cyanocobalamin) (Cyanocobalamin) 15:49:00 I [facility] Vitamin B12 Vitamin B12 2020-04-27 Completed Common Spiri t - (Cyanocobalamin) (Cyanocobalamin) 15:49:00 I [facility] Vitamin B12 Vitamin B12 2020-04-27 Completed Common Spiri t - (Cyanocobalamin) (Cyanocobalamin) 15:49:00 I [facility] Vitamin B12 Vitamin B12 2020-04-27 Completed Common Spiri t - (Cyanocobalamin) (Cyanocobalamin) 15:49:00 I [facility] Vitamin B12 Vitamin B12 2020-04-27 Completed Common Spiri t - (Cyanocobalamin) (Cyanocobalamin) 15:49:00 I [facility] Vitamin B12 Vitamin B12 2020-04-27 Completed Common Spiri t - (Cyanocobalamin) (Cyanocobalamin) 15:49:00 I [facility] Vitamin B12 Vitamin B12 2020-04-27 Completed Common Spiri t - (Cyanocobalamin) (Cyanocobalamin) 15:49:00 I [facility] Vitamin B12 Vitamin B12 2020-04-27 Completed Common Spiri t - (Cyanocobalamin) (Cyanocobalamin) 15:49:00 I [facility] Vitamin B12 Vitamin B12 2020-04-27 Completed Common Spiri t - (Cyanocobalamin) (Cyanocobalamin) 15:49:00 I [facility] Vitamin B12 Vitamin B12 2020-04-27 Completed Common Spiri t - (Cyanocobalamin) (Cyanocobalamin) 15:49:00 I [facility] Vitamin B12 Vitamin B12 2020-04-27 Completed Common Spiri t - (Cyanocobalamin) (Cyanocobalamin) 15:49:00 I [facility] Vitamin B12 Vitamin B12 2020-04-27 Completed Common Spiri t - (Cyanocobalamin) (Cyanocobalamin) 15:49:00 I [facility] Vitamin B12 Vitamin B12 2020-04-27 Completed Common Spiri t - (Cyanocobalamin) (Cyanocobalamin) 15:49:00 I [facility] Vitamin B12 Vitamin B12 2020-04-27 Completed Common Spiri t - (Cyanocobalamin) (Cyanocobalamin) 15:49:00 I [facility] Vitamin B12 Vitamin B12 2020-04-27 Completed Common Spiri t - (Cyanocobalamin) (Cyanocobalamin) 15:49:00 [facility] Vitamin B12 Vitamin B12 2020-04-27 Completed Common Spiri t - (Cyanocobalamin) (Cyanocobalamin) 15:49:00 [facility] Vitamin B12 Vitamin B12 2020-04-13 Completed Common Spiri t - (Cyanocobalamin) (Cyanocobalamin) 14:29:00 [facility] Vitamin B12 Vitamin B12 2020-04-13 Completed Common Spiri t - (Cyanocobalamin) (Cyanocobalamin) 14:29:00 I [facility] Vitamin B12 Vitamin B12 2020-04-13 Completed Common Spiri t - (Cyanocobalamin) (Cyanocobalamin) 14:29:00 I [facility] Vitamin B12 Vitamin B12 2020-04-13 Completed Common Spiri t - (Cyanocobalamin) (Cyanocobalamin) 14:29:00 I [facility] Vitamin B12 Vitamin B12 2020-04-13 Completed Common Spiri t - (Cyanocobalamin) (Cyanocobalamin) 14:29:00 I [facility] Vitamin B12 Vitamin B12 2020-04-13 Completed Common Spiri t - (Cyanocobalamin) (Cyanocobalamin) 14:29:00 I [facility] Vitamin B12 Vitamin B12 2020-04-13 Completed Common Spiri t - (Cyanocobalamin) (Cyanocobalamin) 14:29:00 I [facility] Vitamin B12 Vitamin B12 2020-04-13 Completed Common Spiri t - (Cyanocobalamin) (Cyanocobalamin) 14:29:00 I [facility] Vitamin B12 Vitamin B12 2020-04-13 Completed Common Spiri t - (Cyanocobalamin) (Cyanocobalamin) 14:29:00 I [facility] Vitamin B12 Vitamin B12 2020-04-13 Completed Common Spiri t - (Cyanocobalamin) (Cyanocobalamin) 14:29:00 I [facility] Vitamin B12 Vitamin B12 2020-04-13 Completed Common Spiri t - (Cyanocobalamin) (Cyanocobalamin) 14:29:00 I [facility] Vitamin B12 Vitamin B12 2020-04-13 Completed Common Spiri t - (Cyanocobalamin) (Cyanocobalamin) 14:29:00 I [facility] Vitamin B12 Vitamin B12 2020-04-13 Completed Common Spiri t - (Cyanocobalamin) (Cyanocobalamin) 14:29:00 I [facility] Vitamin B12 Vitamin B12 2020-04-13 Completed Common Spiri t - (Cyanocobalamin) (Cyanocobalamin) 14:29:00 I [facility] Vitamin B12 Vitamin B12 2020-04-13 Completed Common Spiri t - (Cyanocobalamin) (Cyanocobalamin) 14:29:00 I [facility] Vitamin B12 Vitamin B12 2020-04-13 Completed Common Spiri t - (Cyanocobalamin) (Cyanocobalamin) 14:29:00 I [facility] Vitamin B12 Vitamin B12 2020-04-13 Completed Common Spiri t - (Cyanocobalamin) (Cyanocobalamin) 14:29:00 I [facility] Vitamin B12 Vitamin B12 2020-04-13 Completed Common Spiri t - (Cyanocobalamin) (Cyanocobalamin) 14:29:00 I [facility] Vitamin B12 Vitamin B12 2020-04-13 Completed Common Spiri t - (Cyanocobalamin) (Cyanocobalamin) 14:29:00 [facility] Vitamin B12 Vitamin B12 2020-04-13 Completed Common Spiri t - (Cyanocobalamin) (Cyanocobalamin) 14:29:00 I [facility] Vitamin B12 Vitamin B12 2020-04-13 Completed Common Spiri t - (Cyanocobalamin) (Cyanocobalamin) 14:29:00 I [facility] Vitamin B12 Vitamin B12 2020-04-13 Completed Common Spiri t - (Cyanocobalamin) (Cyanocobalamin) 14:29:00 [facility] Vitamin B12 Vitamin B12 2020-04-13 Completed Common Spiri t - (Cyanocobalamin) (Cyanocobalamin) 14:29:00 [facility] Vitamin B12 Vitamin B12 2020-04-13 Completed Common Spiri t - (Cyanocobalamin) (Cyanocobalamin) 14:29:00 I [facility] Vitamin B12 Vitamin B12 2020-04-13 Completed Common Spiri t - (Cyanocobalamin) (Cyanocobalamin) 14:29:00 [facility] Vitamin B12 Vitamin B12 2020-04-13 Completed Common Spiri t - (Cyanocobalamin) (Cyanocobalamin) 14:29:00 I [facility] Vitamin B12 Vitamin B12 2020-04-13 Completed Common Spiri t - (Cyanocobalamin) (Cyanocobalamin) 14:29:00 I [facility] Vitamin B12 Vitamin B12 2020-04-13 Completed Common Spiri t - (Cyanocobalamin) (Cyanocobalamin) 14:29:00 I [facility] Vitamin B12 Vitamin B12 2020-04-13 Completed Common Spiri t - (Cyanocobalamin) (Cyanocobalamin) 14:29:00 [facility] Vitamin B12 Vitamin B12 2020-04-13 Completed Common Spiri t - (Cyanocobalamin) (Cyanocobalamin) 14:29:00 I [facility] Vitamin B12 Vitamin B12 2020-03-30 Completed Common Spiri t - (Cyanocobalamin) (Cyanocobalamin) 11:47:00 I [facility] Vitamin B12 Vitamin B12 2020-03-30 Completed Common Spiri t - (Cyanocobalamin) (Cyanocobalamin) 11:47:00 I [facility] Vitamin B12 Vitamin B12 2020-03-30 Completed Common Spiri t - (Cyanocobalamin) (Cyanocobalamin) 11:47:00 I [facility] Vitamin B12 Vitamin B12 2020-03-30 Completed Common Spiri t - (Cyanocobalamin) (Cyanocobalamin) 11:47:00 I [facility] Vitamin B12 Vitamin B12 2020-03-30 Completed Common Spiri t - (Cyanocobalamin) (Cyanocobalamin) 11:47:00 I [facility] Vitamin B12 Vitamin B12 2020-03-30 Completed Common Spiri t - (Cyanocobalamin) (Cyanocobalamin) 11:47:00 [facility] Vitamin B12 Vitamin B12 2020-03-30 Completed Common Spiri t - (Cyanocobalamin) (Cyanocobalamin) 11:47:00 I [facility] Vitamin B12 Vitamin B12 2020-03-30 Completed [facility] (Cyanocobalamin) (Cyanocobalamin) 11:47:00 I [facility] Vitamin B12 Vitamin B12 2020-03-30 Completed [facility] (Cyanocobalamin) (Cyanocobalamin) 11:47:00 I [facility] Vitamin B12 Vitamin B12 2020-03-30 Completed [facility] (Cyanocobalamin) (Cyanocobalamin) 11:47:00 I [facility] Vitamin B12 Vitamin B12 2020-03-30 Completed [facility] - (Cyanocobalamin) (Cyanocobalamin) 11:47:00 I [facility] Vitamin B12 Vitamin B12 2020-03-30 Completed [facility] - (Cyanocobalamin) (Cyanocobalamin) 11:47:00 I [facility] Vitamin B12 Vitamin B12 2020-03-30 Completed [facility] - (Cyanocobalamin) (Cyanocobalamin) 11:47:00 I [facility] Vitamin B12 Vitamin B12 2020-03-30 Completed [facility] - (Cyanocobalamin) (Cyanocobalamin) 11:47:00 I [facility] Vitamin B12 Vitamin B12 2020-03-30 Completed [facility] (Cyanocobalamin) (Cyanocobalamin) 11:47:00 I [facility] Vitamin B12 Vitamin B12 2020-03-30 Completed [facility] - (Cyanocobalamin) (Cyanocobalamin) 11:47:00 I [facility] Vitamin B12 Vitamin B12 2020-03-30 Completed [facility] (Cyanocobalamin) (Cyanocobalamin) 11:47:00 I [facility] Vitamin B12 Vitamin B12 2020-03-30 Completed [facility] (Cyanocobalamin) (Cyanocobalamin) 11:47:00 I [facility] Vitamin B12 Vitamin B12 2020-03-30 Completed [facility] - (Cyanocobalamin) (Cyanocobalamin) 11:47:00 I [facility] Vitamin B12 Vitamin B12 2020-03-30 Completed [facility] - (Cyanocobalamin) (Cyanocobalamin) 11:47:00 I [facility] Vitamin B12 Vitamin B12 2020-03-30 Completed [facility] - (Cyanocobalamin) (Cyanocobalamin) 11:47:00 I [facility] Vitamin B12 Vitamin B12 2020-03-30 Completed [facility] - (Cyanocobalamin) (Cyanocobalamin) 11:47:00 I [facility] Vitamin B12 Vitamin B12 2020-03-30 Completed [facility] - (Cyanocobalamin) (Cyanocobalamin) 11:47:00 I [facility] Vitamin B12 Vitamin B12 2020-03-30 Completed [facility] - (Cyanocobalamin) (Cyanocobalamin) 11:47:00 I [facility] Vitamin B12 Vitamin B12 2020-03-30 Completed [facility] - (Cyanocobalamin) (Cyanocobalamin) 11:47:00 I [facility] Vitamin B12 Vitamin B12 2020-03-30 Completed [facility] (Cyanocobalamin) (Cyanocobalamin) 11:47:00 I [facility] Vitamin B12 Vitamin B12 2020-03-30 Completed [facility] (Cyanocobalamin) (Cyanocobalamin) 11:47:00 I [facility] Vitamin B12 Vitamin B12 2020-03-30 Completed [facility] (Cyanocobalamin) (Cyanocobalamin) 11:47:00 I [facility] Vitamin B12 Vitamin B12 2020-03-30 Completed [facility] (Cyanocobalamin) (Cyanocobalamin) 11:47:00 I [facility] Vitamin B12 Vitamin B12 2020-03-30 Completed [facility] (Cyanocobalamin) (Cyanocobalamin) 11:47:00 [facility] Vitamin B12 Vitamin B12 2020-03-30 Completed [facility] - (Cyanocobalamin) (Cyanocobalamin) 11:47:00 I [facility] Vitamin B12 Vitamin B12 2020-03-30 Completed [facility] (Cyanocobalamin) (Cyanocobalamin) 11:47:00 I [facility] Vitamin B12 Vitamin B12 2020-03-16 Completed [facility] (Cyanocobalamin) (Cyanocobalamin) 16:44:00 [facility] Vitamin B12 Vitamin B12 2020-03-16 Completed [facility] (Cyanocobalamin) (Cyanocobalamin) 16:44:00 [facility] Vitamin B12 Vitamin B12 2020-03-16 Completed [facility] (Cyanocobalamin) (Cyanocobalamin) 16:44:00 [facility] Vitamin B12 Vitamin B12 2020-03-16 Completed [facility] (Cyanocobalamin) (Cyanocobalamin) 16:44:00 I [facility] Vitamin B12 Vitamin B12 2020-03-16 Completed [facility] (Cyanocobalamin) (Cyanocobalamin) 16:44:00 I [facility] Vitamin B12 Vitamin B12 2020-03-16 Completed [facility] (Cyanocobalamin) (Cyanocobalamin) 16:44:00 I [facility] Vitamin B12 Vitamin B12 2020-03-16 Completed [facility] (Cyanocobalamin) (Cyanocobalamin) 16:44:00 I [facility] Vitamin B12 Vitamin B12 2020-03-16 Completed [facility] (Cyanocobalamin) (Cyanocobalamin) 16:44:00 I [facility] Vitamin B12 Vitamin B12 2020-03-16 Completed [facility] (Cyanocobalamin) (Cyanocobalamin) 16:44:00 I [facility] Vitamin B12 Vitamin B12 2020-03-16 Completed [facility] (Cyanocobalamin) (Cyanocobalamin) 16:44:00 I [facility] Vitamin B12 Vitamin B12 2020-03-16 Completed [facility] (Cyanocobalamin) (Cyanocobalamin) 16:44:00 I [facility] Vitamin B12 Vitamin B12 2020-03-16 Completed [facility] (Cyanocobalamin) (Cyanocobalamin) 16:44:00 I [facility] Vitamin B12 Vitamin B12 2020-03-16 Completed [facility] (Cyanocobalamin) (Cyanocobalamin) 16:44:00 I [facility] Vitamin B12 Vitamin B12 2020-03-16 Completed [facility] (Cyanocobalamin) (Cyanocobalamin) 16:44:00 I [facility] Vitamin B12 Vitamin B12 2020-03-16 Completed [facility] (Cyanocobalamin) (Cyanocobalamin) 16:44:00 [facility] Vitamin B12 Vitamin B12 2020-03-16 Completed [facility] (Cyanocobalamin) (Cyanocobalamin) 16:44:00 I [facility] Vitamin B12 Vitamin B12 2020-03-16 Completed [facility] (Cyanocobalamin) (Cyanocobalamin) 16:44:00 I [facility] Vitamin B12 Vitamin B12 2020-03-16 Completed [facility] (Cyanocobalamin) (Cyanocobalamin) 16:44:00 I [facility] Vitamin B12 Vitamin B12 2020-03-16 Completed [facility] (Cyanocobalamin) (Cyanocobalamin) 16:44:00 I [facility] Vitamin B12 Vitamin B12 2020-03-16 Completed [facility] (Cyanocobalamin) (Cyanocobalamin) 16:44:00 I [facility] Vitamin B12 Vitamin B12 2020-03-16 Completed [facility] (Cyanocobalamin) (Cyanocobalamin) 16:44:00 I [facility] Vitamin B12 Vitamin B12 2020-03-16 Completed [facility] (Cyanocobalamin) (Cyanocobalamin) 16:44:00 I [facility] Vitamin B12 Vitamin B12 2020-03-16 Completed [facility] (Cyanocobalamin) (Cyanocobalamin) 16:44:00 I [facility] Vitamin B12 Vitamin B12 2020-03-16 Completed [facility] (Cyanocobalamin) (Cyanocobalamin) 16:44:00 I [facility] Vitamin B12 Vitamin B12 2020-03-16 Completed [facility] (Cyanocobalamin) (Cyanocobalamin) 16:44:00 I [facility] Vitamin B12 Vitamin B12 2020-03-16 Completed [facility] (Cyanocobalamin) (Cyanocobalamin) 16:44:00 I [facility] Vitamin B12 Vitamin B12 2020-03-16 Completed [facility] (Cyanocobalamin) (Cyanocobalamin) 16:44:00 I [facility] Vitamin B12 Vitamin B12 2020-03-16 Completed [facility] (Cyanocobalamin) (Cyanocobalamin) 16:44:00 I [facility] Vitamin B12 Vitamin B12 2020-03-16 Completed [facility] (Cyanocobalamin) (Cyanocobalamin) 16:44:00 I [facility] Vitamin B12 Vitamin B12 2020-03-16 Completed [facility] (Cyanocobalamin) (Cyanocobalamin) 16:44:00 I [facility] Vitamin B12 Vitamin B12 2020-03-16 Completed [facility] (Cyanocobalamin) (Cyanocobalamin) 16:44:00 I [facility] Vitamin B12 Vitamin B12 2020-03-16 Completed [facility] (Cyanocobalamin) (Cyanocobalamin) 16:44:00 I [facility] Vitamin B12 Vitamin B12 2020-03-16 Completed [facility] (Cyanocobalamin) (Cyanocobalamin) 16:44:00 I [facility] Vitamin B12 Vitamin B12 2020-03-16 Completed [facility] (Cyanocobalamin) (Cyanocobalamin) 16:44:00 I [facility] Vitamin B12 Vitamin B12 2020-03-16 Completed [facility] (Cyanocobalamin) (Cyanocobalamin) 16:44:00 [facility] Kenalog Kenalog 2019-08-03 Com[facility] (Triamcinolone) (Triamcinolone) 15:15:00 [facility] Kenalog Kenalog 2019-08-03 Completed [facility] (Triamcinolone) (Triamcinolone) 15:15:00 [facility] Kenalog Kenalog 2019-08-03 Completed [facility] (Triamcinolone) (Triamcinolone) 15:15:00 [facility] Kenalog 2019-08-03 Completed [facility] (Triamcinolone) (Triamcinolone) 15:15:00 [facility] Kenalog Kenalog 2019-08-03 Completed [facility] (Triamcinolone) (Triamcinolone) 15:15:00 [facility] Kenalog Kenalog 2019-08-03 Completed [facility] (Triamcinolone) (Triamcinolone) 15:15:00 [facility] Kenalog Kenalog 2019-08-03 Completed [facility] (Triamcinolone) (Triamcinolone) 15:15:00 [facility] Kenalog Kenalog 2019-08-03 Completed [facility] (Triamcinolone) (Triamcinolone) 15:15:00 [facility] 2019-08-03 Completed [facility] (Triamcinolone) (Triamcinolone) 15:15:00 [facility] 2019-08-03 Completed [facility] (Triamcinolone) (Triamcinolone) 15:15:00 [facility] 2019-08-03 Completed [facility] (Triamcinolone) (Triamcinolone) 15:15:00 [facility] 2019-08-03 Completed [facility] (Triamcinolone) (Triamcinolone) 15:15:00 [facility] 2019-08-03 Completed [facility] (Triamcinolone) (Triamcinolone) 15:15:00 [facility] 2019-08-03 Completed [facility] (Triamcinolone) (Triamcinolone) 15:15:00 [facility] 2019-08-03 Completed [facility] (Triamcinolone) (Triamcinolone) 15:15:00 [facility] 2019-08-03 Completed [facility] (Triamcinolone) (Triamcinolone) 15:15:00 [facility] 2019-08-03 Completed [facility] (Triamcinolone) (Triamcinolone) 15:15:00 [facility] 2019-08-03 Completed [facility] (Triamcinolone) (Triamcinolone) 15:15:00 [facility] 2019-08-03 Completed [facility] (Triamcinolone) (Triamcinolone) 15:15:00 [facility] 2019-08-03 Completed [facility] (Triamcinolone) (Triamcinolone) 15:15:00 [facility] 2019-08-03 Completed [facility] (Triamcinolone) (Triamcinolone) 15:15:00 [facility] 2019-08-03 Completed [facility] (Triamcinolone) (Triamcinolone) 15:15:00 [facility] 2019-08-03 Completed [facility] (Triamcinolone) (Triamcinolone) 15:15:00 [facility] 2019-08-03 Completed [facility] (Triamcinolone) (Triamcinolone) 15:15:00 [facility] 2019-08-03 Completed [facility] (Triamcinolone) (Triamcinolone) 15:15:00 [facility] 2019-08-03 Completed [facility] (Triamcinolone) (Triamcinolone) 15:15:00 [facility] 2019-08-03 Completed [facility] (Triamcinolone) (Triamcinolone) 15:15:00 [facility] 2019-08-03 Completed [facility] (Triamcinolone) (Triamcinolone) 15:15:00 [facility] 2019-08-03 Completed [facility] (Triamcinolone) (Triamcinolone) 15:15:00 [facility] 2019-08-03 Completed [facility] (Triamcinolone) (Triamcinolone) 15:15:00 [facility] 2019-08-03 Completed [facility] (Triamcinolone) (Triamcinolone) 15:15:00 [facility] 2019-08-03 Completed [facility] (Triamcinolone) (Triamcinolone) 15:15:00 [facility] 2019-08-03 Completed [facility] (Triamcinolone) (Triamcinolone) 15:15:00 [facility] 2019-08-03 Completed [facility] (Triamcinolone) (Triamcinolone) 15:15:00 [facility] 2019-08-03 Completed [facility] (Triamcinolone) (Triamcinolone) 15:15:00 [facility] 2019-07-06 Completed [facility] (Triamcinolone) (Triamcinolone) 10:04:00 [facility] 2019-07-06 Completed [facility] (Triamcinolone) (Triamcinolone) 10:04:00 [facility] 2019[facility]-06 Completed [facility] (Triamcinolone) (Triamcinolone) 10:04:00 [facility] 2019-07-06 Completed [facility] (Triamcinolone) (Triamcinolone) 10:04:00 [facility] 2019-07-06 Completed [facility] (Triamcinolone) (Triamcinolone) 10:04:00 [facility] 2019-07-06 Completed [facility] (Triamcinolone) (Triamcinolone) 10:04:00 [facility] 2019-07-06 Completed [facility] (Triamcinolone) (Triamcinolone) 10:04:00 [facility] 2019-07-06 Completed [facility] (Triamcinolone) (Triamcinolone) 10:04:00 [facility] 2019-07-06 Completed [facility] (Triamcinolone) (Triamcinolone) 10:04:00 [facility] 2019-07-06 Completed [facility] (Triamcinolone) (Triamcinolone) 10:04:00 [facility] 2019-07-06 Completed [facility] (Triamcinolone) (Triamcinolone) 10:04:00 [facility] 2019-07-06 Completed [facility] (Triamcinolone) (Triamcinolone) 10:04:00 [facility] 2019-07-06 Completed [facility] (Triamcinolone) (Triamcinolone) 10:04:00 [facility] 2019-07-06 Completed [facility] (Triamcinolone) (Triamcinolone) 10:04:00 [facility] 2019-07-06 Completed [facility] (Triamcinolone) (Triamcinolone) 10:04:00 [facility] 2019-07-06 Completed [facility] (Triamcinolone) (Triamcinolone) 10:04:00 [facility] 2019-07-06 Completed [facility] (Triamcinolone) (Triamcinolone) 10:04:00 [facility] 2019-07-06 Completed [facility] (Triamcinolone) (Triamcinolone) 10:04:00 [facility] 2019-07-06 Completed [facility] (Triamcinolone) (Triamcinolone) 10:04:00 [facility] 2019-07-06 Completed [facility] (Triamcinolone) (Triamcinolone) 10:04:00 [facility] 2019-07-06 Completed [facility] (Triamcinolone) (Triamcinolone) 10:04:00 [facility] 2019-07-06 Completed [facility] (Triamcinolone) (Triamcinolone) 10:04:00 [facility] 2019-07-06 Completed [facility] (Triamcinolone) (Triamcinolone) 10:04:00 [facility] 2019-07-06 Completed [facility] (Triamcinolone) (Triamcinolone) 10:04:00 [facility] 2019-07-06 Completed [facility] (Triamcinolone) (Triamcinolone) 10:04:00 [facility] 2019-07-06 Completed [facility] (Triamcinolone) (Triamcinolone) 10:04:00 [facility] 2019-07-06 Completed [facility] (Triamcinolone) (Triamcinolone) 10:04:00 [facility] 2019-07-06 Completed [facility] (Triamcinolone) (Triamcinolone) 10:04:00 [facility] 2019-07-06 Completed [facility] (Triamcinolone) (Triamcinolone) 10:04:00 [facility] Haylee Leach 2019-07-06 Completed [facility] (Triamcinolone) (Triamcinolone) 10:04:00 [facility] Haylee Leach 2019-07-06 Completed [facility] (Triamcinolone) (Triamcinolone) 10:04:00 [facility] Haylee Leach 2019-07-06 Completed [facility] (Triamcinolone) (Triamcinolone) 10:04:00 [facility] Haylee Leach 2019-07-06 Completed [facility] (Triamcinolone) (Triamcinolone) 10:04:00 [facility] Haylee Leach 2019-07-06 Completed [facility] (Triamcinolone) (Triamcinolone) 10:04:00 [facility] Haylee Leach 2019-07-06 Completed [facility] (Triamcinolone) (Triamcinolone) 10:04:00 [facility] Haylee Leach 2019-05-17 Completed [facility] (Triamcinolone) (Triamcinolone) 15:11:00 [facility] Haylee Leach 2019-05-17 Completed [facility] (Triamcinolone) (Triamcinolone) 15:11:00 [facility] Haylee Leach 2019-05-17 Completed [facility] (Triamcinolone) (Triamcinolone) 15:11:00 [facility] Haylee Leach 2019-05-17 Completed [facility] (Triamcinolone) (Triamcinolone) 15:11:00 [facility] Haylee Leach 2019-05-17 Completed [facility] (Triamcinolone) (Triamcinolone) 15:11:00 [facility] Haylee Leach 2019-05-17 Completed [facility] (Triamcinolone) (Triamcinolone) 15:11:00 [facility] Haylee Leach 2019-05-17 Completed [facility] (Triamcinolone) (Triamcinolone) 15:11:00 [facility] Haylee Leach 2019-05-17 Completed [facility] (Triamcinolone) (Triamcinolone) 15:11:00 [facility] Haylee Leach 2019-05-17 Completed [facility] (Triamcinolone) (Triamcinolone) 15:11:00 [facility] Haylee Leach 2019-05-17 Completed [facility] (Triamcinolone) (Triamcinolone) 15:11:00 [facility] Haylee Leach 2019-05-17 Completed [facility] (Triamcinolone) (Triamcinolone) 15:11:00 [facility] Haylee Leach 2019-05-17 Completed [facility] (Triamcinolone) (Triamcinolone) 15:11:00 [facility] Haylee Leach 2019-05-17 Completed [facility] (Triamcinolone) (Triamcinolone) 15:11:00 [facility] Haylee Leach 2019-05-17 Completed [facility] (Triamcinolone) (Triamcinolone) 15:11:00 [facility] Haylee Leach 2019-05-17 Completed [facility] (Triamcinolone) (Triamcinolone) 15:11:00 [facility] Haylee Leach 2019-05-17 Completed [facility] (Triamcinolone) (Triamcinolone) 15:11:00 [facility] Haylee Leach 2019-05-17 Completed [facility] (Triamcinolone) (Triamcinolone) 15:11:00 [facility] Haylee Leach 2019-05-17 Completed [facility] (Triamcinolone) (Triamcinolone) 15:11:00 [facility] Haylee Leach 2019-05-17 Completed [facility] (Triamcinolone) (Triamcinolone) 15:11:00 [facility] Haylee Leach 2019-05-17 Completed [facility] (Triamcinolone) (Triamcinolone) 15:11:00 [facility] Haylee Leach 2019-05-17 Completed [facility] (Triamcinolone) (Triamcinolone) 15:11:00 [facility] Haylee Leach 2019-05-17 Completed [facility] (Triamcinolone) (Triamcinolone) 15:11:00 [facility] Haylee Leach 2019-05-17 Completed [facility] (Triamcinolone) (Triamcinolone) 15:11:00 [facility] Haylee Leach 2019-05-17 Completed [facility] (Triamcinolone) (Triamcinolone) 15:11:00 [facility] Haylee Leach 2019-05-17 Completed [facility] (Triamcinolone) (Triamcinolone) 15:11:00 [facility] Haylee Leach 2019-05-17 Completed [facility] (Triamcinolone) (Triamcinolone) 15:11:00 [facility] Haylee Leach 2019-05-17 Completed [facility] (Triamcinolone) (Triamcinolone) 15:11:00 [facility] Haylee Leach 2019-05-17 Completed [facility] (Triamcinolone) (Triamcinolone) 15:11:00 [facility] Haylee Leach 2019-05-17 Completed [facility] (Triamcinolone) (Triamcinolone) 15:11:00 [facility] Haylee Leach 2019-05-17 Completed [facility] (Triamcinolone) (Triamcinolone) 15:11:00 [facility] Haylee Leach 2019-05-17 Completed [facility] (Triamcinolone) (Triamcinolone) 15:11:00 [facility] Haylee Leach 2019-05-17 Completed [facility] (Triamcinolone) (Triamcinolone) 15:11:00 [facility] Haylee Leach 2019-05-17 Completed [facility] (Triamcinolone) (Triamcinolone) 15:11:00 [facility] Haylee Leach 2019-05-17 Completed [facility] (Triamcinolone) (Triamcinolone) 15:11:00 [facility] Haylee Leach 2019-05-17 Completed [facility] (Triamcinolone) (Triamcinolone) 15:11:00 [facility] Haylee Leach 2018-03-25 Completed [facility] (Triamcinolone) (Triamcinolone) 10:41:00 [facility] Haylee Leach 2018-03-25 Completed [facility] (Triamcinolone) (Triamcinolone) 10:41:00 [facility] Haylee Leach 2018-03-25 Completed [facility] (Triamcinolone) (Triamcinolone) 10:41:00 [facility] Haylee Leach 2018-03-25 Completed [facility] (Triamcinolone) (Triamcinolone) 10:41:00 [facility] Haylee Leach 2018-03-25 Completed [facility] (Triamcinolone) (Triamcinolone) 10:41:00 [facility] Haylee Leach 2018-03-25 Completed [facility] (Triamcinolone) (Triamcinolone) 10:41:00 [facility] Haylee Leach 2018-03-25 Completed [facility] (Triamcinolone) (Triamcinolone) 10:41:00 [facility] Haylee Leach 2018-03-25 Completed [facility] (Triamcinolone) (Triamcinolone) 10:41:00 [facility] Haylee Leach 2018-03-25 Completed [facility] (Triamcinolone) (Triamcinolone) 10:41:00 [facility] Haylee Leach 2018-03-25 Completed [facility] (Triamcinolone) (Triamcinolone) 10:41:00 [facility] Haylee Leach 2018-03-25 Completed [facility] (Triamcinolone) (Triamcinolone) 10:41:00 [facility] Haylee Leach 2018-03-25 Completed [facility] (Triamcinolone) (Triamcinolone) 10:41:00 [facility] Haylee Leach 2018-03-25 Completed [facility] (Triamcinolone) (Triamcinolone) 10:41:00 [facility] Haylee Leach 2018-03-25 Completed [facility] (Triamcinolone) (Triamcinolone) 10:41:00 [facility] Haylee Leach 2018-03-25 Completed [facility] (Triamcinolone) (Triamcinolone) 10:41:00 [facility] Haylee Leach 2018-03-25 Completed [facility] (Triamcinolone) (Triamcinolone) 10:41:00 [facility] Haylee Leach 2018-03-25 Completed [facility] (Triamcinolone) (Triamcinolone) 10:41:00 [facility] Haylee Leach 2018-03-25 Completed [facility] (Triamcinolone) (Triamcinolone) 10:41:00 [facility] Haylee Leach 2018-03-25 Completed [facility] (Triamcinolone) (Triamcinolone) 10:41:00 [facility] Haylee Leach 2018-03-25 Completed [facility] (Triamcinolone) (Triamcinolone) 10:41:00 [facility] Haylee Leach 2018-03-25 Completed [facility] (Triamcinolone) (Triamcinolone) 10:41:00 [facility] Haylee Leach 2018-03-25 Completed [facility] (Triamcinolone) (Triamcinolone) 10:41:00 [facility] Haylee Leach 2018-03-25 Completed [facility] (Triamcinolone) (Triamcinolone) 10:41:00 [facility] Haylee Leach 2018-03-25 Completed [facility] (Triamcinolone) (Triamcinolone) 10:41:00 [facility] Haylee Leach 2018-03-25 Completed [facility] (Triamcinolone) (Triamcinolone) 10:41:00 [facility] Haylee Leach 2018-03-25 Completed [facility] (Triamcinolone) (Triamcinolone) 10:41:00 [facility] Haylee Leach 2018-03-25 Completed [facility] (Tri[facility] (Triamcinolone) 10:41:00 [facility] Haylee Leach 2018-03-25 Completed [facility] (Triamcinolone) (Triamcinolone) 10:41:00 [facility] Haylee Leach 2018-03-25 Completed [facility] - (Triamcinolone) (Triamcinolone) 10:41:00 [facility] Haylee Leach 2018-03-25 Completed [facility] (Triamcinolone) (Triamcinolone) 10:41:00 [facility] Haylee Leach 2018-03-25 Completed [facility] (Triamcinolone) (Triamcinolone) 10:41:00 [facility] Haylee Leach 2018-03-25 Completed [facility] (Triamcinolone) (Triamcinolone) 10:41:00 [facility] Haylee Leach 2018-03-25 Completed [facility] (Triamcinolone) (Triamcinolone) 10:41:00 [facility] Haylee Leach 2018-03-25 Completed [facility] (Triamcinolone) (Triamcinolone) 10:41:00 [facility] Haylee Leach 2018-03-25 Completed [facility] (Triamcinolone) (Triamcinolone) 10:41:00 [facility] Haylee Leach 2017-11-04 Completed [facility] - (Triamcinolone) (Triamcinolone) 10:43:00 [facility] Haylee Leach 2017-11-04 Completed [facility] - (Triamcinolone) (Triamcinolone) 10:43:00 [facility] Haylee Leach 2017-11-04 Completed [facility] - (Triamcinolone) (Triamcinolone) 10:43:00 [facility] Haylee Leach 2017-11-04 Completed [facility] (Triamcinolone) (Triamcinolone) 10:43:00 [facility] Haylee Leach 2017-11-04 Completed [facility] (Triamcinolone) (Triamcinolone) 10:43:00 [facility] Haylee Leach 2017-11-04 Completed [facility] - (Triamcinolone) (Triamcinolone) 10:43:00 [facility] Haylee Leach 2017-11-04 Completed [facility] - (Triamcinolone) (Triamcinolone) 10:43:00 [facility] Haylee Leach 2017-11-04 Completed [facility] - (Triamcinolone) (Triamcinolone) 10:43:00 [facility] Haylee Leach 2017-11-04 Completed [facility] (Triamcinolone) (Triamcinolone) 10:43:00 [facility] Haylee Leach 2017-11-04 Completed [facility] (Triamcinolone) (Triamcinolone) 10:43:00 [facility] Haylee Leach 2017-11-04 Completed [facility] (Triamcinolone) (Triamcinolone) 10:43:00 [facility] 2017-11-04 Completed [facility] - (Triamcinolone) (Triamcinolone) 10:43:00 [facility] Haylee Leach 2017-11-04 Completed [facility] (Triamcinolone) (Triamcinolone) 10:43:00 [facility] Haylee Leach 2017-11-04 Completed [facility] (Triamcinolone) (Triamcinolone) 10:43:00 [facility] Haylee Leach 2017-11-04 Completed [facility] (Triamcinolone) (Triamcinolone) 10:43:00 [facility] Haylee Leach 2017-11-04 Completed [facility] (Triamcinolone) (Triamcinolone) 10:43:00 [facility] Haylee Leach 2017-11-04 Completed [facility] (Triamcinolone) (Triamcinolone) 10:43:00 [facility] Haylee Leach 2017-11-04 Completed [facility] (Triamcinolone) (Triamcinolone) 10:43:00 [facility] Haylee Leach 2017-11-04 Completed [facility] (Triamcinolone) (Triamcinolone) 10:43:00 [facility] Haylee 2017-11-04 Completed [facility] (Triamcinolone) (Triamcinolone) 10:43:00 [facility] Haylee 2017-11-04 Completed [facility] (Triamcinolone) (Triamcinolone) 10:43:00 [facility] Haylee Leach 2017-11-04 Completed [facility] (Triamcinolone) (Triamcinolone) 10:43:00 [facility] Haylee Leach 2017-11-04 Completed [facility] (Triamcinolone) (Triamcinolone) 10:43:00 [facility] Haylee Leach 2017-11-04 Completed [facility] (Triamcinolone) (Triamcinolone) 10:43:00 [facility] Haylee Leach 2017-11-04 Completed [facility] (Triamcinolone) (Triamcinolone) 10:43:00 [facility] Haylee Leach 2017-11-04 Completed [facility] (Triamcinolone) (Triamcinolone) 10:43:00 [facility] Haylee Leach 2017-11-04 Completed [facility] (Triamcinolone) (Triamcinolone) 10:43:00 [facility] Haylee Leach 2017-11-04 Completed [facility] (Triamcinolone) (Triamcinolone) 10:43:00 [facility] Haylee Leach 2017-11-04 Completed [facility] (Triamcinolone) (Triamcinolone) 10:43:00 [facility] Haylee Leach 2017-11-04 Completed [facility] (Triamcinolone) (Triamcinolone) 10:43:00 [facility] Haylee Leach 2017-11-04 Completed [facility] (Triamcinolone) (Triamcinolone) 10:43:00 [facility] Haylee Leach 2017-11-04 Completed [facility] (Triamcinolone) (Triamcinolone) 10:43:00 [facility] Haylee 2017-11-04 Completed [facility] - (Triamcinolone) (Triamcinolone) 10:43:00 [facility] Haylee 2017-11-04 Completed [facility] - (Triamcinolone) (Triamcinolone) 10:43:00 [facility] Haylee 2017-11-04 Completed [facility] - (Triamcinolone) (Triamcinolone) 10:43:00 [facility] Influenza Virus 2007-09-22 Completed Universit y of Vaccine 00:00:00 [facility] Pneumococcal 2007-09-22 Completed University o f Polysaccharide, 00:00:00 [place] [facility] PPSV23 (PNEUMOVAX) Branch Influenza Virus 2007-09-22 Completed [facility]it [facility] of Vaccine 00:00:00 [facility] Pneumococcal 2007-09-22 Completed University o f Polysaccharide, 00:00:00 [place] [facility] PPSV23 (PNEUMOVAX) Branch Influenza Virus 2007-09-22 Completed [facility]it y of Vaccine 00:00:00 [facility] Pneumococcal 2007-09-22 Completed University o f Polysaccharide, 00:00:00 [place] [facility] PPSV23 (PNEUMOVAX) Branch Influenza Virus 2007-09-22 Completed [facility]it [facility] of Vaccine 00:00:00 [facility] Pneumococcal 2007-09-22 Completed University o f Polysaccharide, 00:00:00 [place] [facility] PPSV23 (PNEUMOVAX) Branch Influenza Virus 2007-09-22 Completed [facility]it y of Vaccine 00:00:00 [facility] Pneumococcal 2007-09-22 Completed University o f Polysaccharide, 00:00:00 [place] [facility] PPSV23 (PNEUMOVAX) Branch Influenza Virus 2007-09-22 Completed [facility]it [facility] of Vaccine 00:00:00 [facility] Pneumococcal 2007-09-22 Completed University o f Polysaccharide, 00:00:00 [place] [facility] PPSV23 (PNEUMOVAX) Branch Influenza Virus 2007-09-22 Completed [facility]it [facility] of Vaccine 00:00:00 [facility] Pneumococcal 2007-09-22 Completed University o f Polysaccharide, 00:00:00 [place] [facility] PPSV23 (PNEUMOVAX) Branch Influenza Virus 2007-09-22 Completed [facility]it y of Vaccine 00:00:00 [facility] Pneumococcal 2007-09-22 Completed University o f Polysaccharide, 00:00:00 [place] [facility] PPSV23 (PNEUMOVAX) Branch Influenza Virus 2007-09-22 Completed [facility]it [facility] of Vaccine 00:00:00 [facility] Pneumococcal 2007-09-22 Completed University o f Polysaccharide, 00:00:00 [place] [facility] PPSV23 (PNEUMOVAX) Branch Influenza Virus 2007-09-22 Completed [facility]it y of Vaccine 00:00:00 [facility] Pneumococcal 2007-09-22 Completed University o f Polysaccharide, 00:00:00 [place] [facility] PPSV23 (PNEUMOVAX) Branch Influenza Virus 2007-09-22 Completed [facility]it [facility] of Vaccine 00:00:00 [facility] Pneumococcal 2007-09-22 Completed [facility] o f Polysaccharide, 00:00:00 [place] [facility] PPSV23 (PNEUMOVAX) Branch Influenza Virus 2007-09-22 Completed [facility]it [facility] of Vaccine 00:00:00 [facility] Pneumococcal 2007-09-22 Completed University o f Polysaccharide, 00:00:00 [place] [facility] PPSV23 (PNEUMOVAX) Branch Influenza Virus 2007-09-22 Completed [facility]it y of Vaccine 00:00:00 [facility] Pneumococcal 2007-09-22 Completed University o f Polysaccharide, 00:00:00 [place] [facility] PPSV23 (PNEUMOVAX) Branch Influenza Virus 2007-09-22 Completed Universit y of Vaccine 00:00:00 [facility] Pneumococcal 2007-09-22 Completed University o f Polysaccharide, 00:00:00 [place] [facility] PPSV23 (PNEUMOVAX) Branch Influenza Virus 2007-09-22 Completed [facility]it y of Vaccine 00:00:00 [facility] Pneumococcal 2007-09-22 Completed University o f Polysaccharide, 00:00:00 [place] [facility] PPSV23 (PNEUMOVAX) Branch Influenza Virus 2007-09-22 Completed [facility]it y of Vaccine 00:00:00 [facility] Pneumococcal 2007-09-22 Completed [facility] o f Polysaccharide, 00:00:00 [place] [facility] PPSV23 (PNEUMOVAX) Branch Influenza Virus 2007-09-22 Completed [facility]it y of Vaccine 00:00:00 [facility] Pneumococcal 2007-09-22 Completed [facility] o f Polysaccharide, 00:00:00 [place] [facility] PPSV23 (PNEUMOVAX) Branch Influenza Virus 2007-09-22 Completed Universit y of Vaccine 00:00:00 [facility] Pneumococcal 2007-09-22 Completed University o f Polysaccharide, 00:00:00 [place] [facility] PPSV23 (PNEUMOVAX) Branch Influenza Virus 2007-09-22 Completed [facility]it y of Vaccine 00:00:00 [facility] Pneumococcal 2007-09-22 Completed University o f Polysaccharide, 00:00:00 [place] [facility] PPSV23 (PNEUMOVAX) Branch Influenza Virus 2007-09-22 Completed [facility]it y of Vaccine 00:00:00 [facility] Pneumococcal 2007-09-22 Completed University o f Polysaccharide, 00:00:00 [place] [facility] PPSV23 (PNEUMOVAX) Branch Influenza Virus 2007-09-22 Completed Universit y of Vaccine 00:00:00 [facility] Pneumococcal 2007-09-22 Completed University o f Polysaccharide, 00:00:00 [place] [facility] PPSV23 (PNEUMOVAX) Branch Influenza Virus 2007-09-22 Completed Universit y of Vaccine 00:00:00 [facility] Pneumococcal 2007-09-22 Completed University o f Polysaccharide, 00:00:00 [place] [facility] PPSV23 (PNEUMOVAX) [place] Vital Signs Vital Name Observation Time Observation Value Comments Source height 2022-04-29 14:50:00 65 [in_i] [facility] weight 2022-04-29 14:50:00 183.2 [lb_av] [facility] temperature 2022-04-29 14:50:00 96.5 [degF] [facility] bmi 2022-04-29 14:50:00 30.48 kg/m2 [facility] oximetry 2022-04-29 14:50:00 97 % [facility] respiratory rate 2022-04-29 14:50:00 17 /min [facility] blood pressure 2022-04-29 14:50:00 127 mm[Hg] [facility] - systolic [facility] blood pressure 2022-04-29 14:50:00 67 mm[Hg] [facility] diastolic [facility] height 2022-03-27 14:00:00 65 [in_i] [facility] weight 2022-03-27 14:00:00 180.6 [lb_av] [facility] temperature 2022-03-27 14:00:00 97.7 [degF] [facility] bmi 2022-03-27 14:00:00 30.05 kg/m2 [facility] oximetry 2022-03-27 14:00:00 97 % [facility] respiratory rate 2022-03-27 14:00:00 17 /min [facility] blood pressure 2022-03-27 14:00:00 132 mm[Hg] [facility] - systolic [facility] blood pressure 2022-03-27 14:00:00 69 mm[Hg] [facility] - diastolic [facility] height 2022-02-12 14:00:00 65 [in_i] [facility] weight 2022-02-12 14:00:00 180.4 [lb_av] [facility] temperature 2022-02-12 14:00:00 97.3 [degF] [facility] bmi 2022-02-12 14:00:00 30.02 kg/m2 [facility] oximetry 2022-02-12 14:00:00 97 % [facility] respiratory rate 2022-02-12 14:00:00 17 /min [facility] blood pressure 2022-02-12 14:00:00 138 mm[Hg] [facility] systolic [facility] blood pressure 2022-02-12 14:00:00 67 mm[Hg] Common [facility] diastolic [facility] Heart rate 2022-02-04 14:03:00 63 /min [facility] Respiratory rate 2022-02-04 14:03:00 16 /min [facility] Oxygen saturation in 2022-02-04 14:03:00 97 /min [facility] Arterial blood by [facility] Pulse oximetry Branch Systolic blood 2022-02-04 13:54:00 114 mm[Hg] Univer sity of [facility] Diastolic blood 2022-02-04 13:54:00 61 mm[Hg] Unive rsity [facility] Body temperature 2022-02-04 13:38:00 36.83 [facility] height 2022-02-04 12:07:00 165.1 cm [facility] [place] [facility] [place] Body weight 2022-02-01 17:00:00 82.555 kg [facility] [place] BMI 2022-02-01 17:00:00 30.29 kg/m2 Universi ty of [facility] Systolic blood 2022-02-04 13:48:00 112 mm[Hg] Univer sity of pressure [facility] Diastolic blood 2022-02-04 13:48:00 60 mm[Hg] Unive rsity of [facility] Heart rate 2022-02-04 13:48:00 57 /min Universi ty of [facility] Respiratory rate 2022-02-04 13:48:00 16 /min [facility] Oxygen saturation in 2022-02-04 13:48:00 99 /min [facility] Arterial blood by [facility] Pulse oximetry [place] Body temperature 2022-02-04 13:38:00 36.83 [facility] Body height 2022-02-04 12:07:00 165.1 cm Universi ty of [facility] Body weight 2022-02-01 17:00:00 82.555 kg Universi ty of [facility] BMI 2022-02-01 17:00:00 30.29 kg/m2 Universi ty of [facility] height 2022-01-28 15:40:00 65 [in_i] [facility] weight 2022-01-28 15:40:00 181.5 [lb_av] Common [facility] temperature 2022-01-28 15:40:00 97.2 [degF] [facility] bmi 2022-01-28 15:40:00 30.2 kg/m2 [facility] oximetry 2022-01-28 15:40:00 98 % [facility] respiratory rate 2022-01-28 15:40:00 17 /min [facility] blood pressure 2022-01-28 15:40:00 125 mm[Hg] Common [facility] systolic [facility] blood pressure 2022-01-28 15:40:00 72 mm[Hg] [facility] - diastolic [facility] Heart rate 2022-01-21 12:57:00 65 /min [facility] Respiratory rate 2022-01-21 12:57:00 29 /min Univ ersity [facility] Oxygen saturation in 2022-01-21 12:57:00 98 /min University of Arterial blood by [facility] Pulse oximetry Branch Systolic blood 2022-01-21 12:55:00 105 mm[Hg] Univer sity of pressure [facility] Diastolic blood 2022-01-21 12:55:00 74 mm[Hg] Unive rsity of pressure [facility] Body temperature 2022-01-21 12:36:00 36.28 Radha Univ ers[facility] Body height 2022-01-21 11:30:00 165.1 cm [facility] Body weight 2022-01-16 15:00:00 83.008 kg [facility] BMI 2022-01-16 15:00:00 30.45 kg/m2 [facility] Systolic blood 2022-01-21 12:45:00 110 mm[Hg] Univer sity of [facility] Diastolic blood 2022-01-21 12:45:00 65 mm[Hg] Unive rsity of pressure [facility] Heart rate 2022-01-21 12:45:00 64 /min [facility] Respiratory rate 2022-01-21 12:45:00 29 /min Univ ersity [facility] Oxygen saturation in 2022-01-21 12:45:00 97 /min University of Arterial blood by [facility] Pulse oximetry Branch Body temperature 2022-01-21 12:36:00 36.28 Radha [facility] Body height 2022-01-21 11:30:00 165.1 cm [facility] Body weight 2022-01-16 15:00:00 83.008 kg [facility] BMI 2022-01-16 15:00:00 30.45 kg/m2 [facility] height 2022-01-17 13:40:00 65 [in_i] [facility] weight 2022-01-17 13:40:00 186.1 [lb_av] Common [facility] temperature 2022-01-17 13:40:00 97.4 [degF] [facility] bmi 2022-01-17 13:40:00 30.97 kg/m2 [facility] oximetry 2022-01-17 13:40:00 96 % [facility] respiratory rate 2022-01-17 13:40:00 17 /min [facility] blood pressure 2022-01-17 13:40:00 125 mm[Hg] Common [facility] systolic [facility] blood pressure 2022-01-17 13:40:00 64 mm[Hg] Common [facility] diastolic [facility] Systolic blood 2022-01-07 13:50:00 118 mm[Hg] Univer sity of [facility] Diastolic blood 2022-01-07 13:50:00 67 mm[Hg] Unive rsity of [facility] Heart rate 2022-01-07 13:50:00 70 [facility] Respiratory rate 2022-01-07 13:50:00 17 /min [facility] Oxygen saturation in 2022-01-07 13:50:00 99 /min [facility] Arterial blood by [facility] Pulse oximetry Branch Body temperature 2022-01-07 13:30:00 36.17 Radha [facility] ersity of [facility] Body height 2021-12-31 13:37:00 165.1 [facility] Body weight 2021-12-31 13:37:00 83.3 kg Universi [facility] BMI 2021-12-31 13:37:00 30.56 kg/m2 Univers ty [facility] Systolic blood 2022-01-07 13:45:00 103 mm[Hg] Univer sity of pressure [facility] Diastolic blood 2022-01-07 13:45:00 57 mm[Hg] Unive rsity of [facility] Heart rate 2022-01-07 13:45:00 64 /min [facility] ty [facility] Respiratory rate 2022-01-07 13:45:00 17 /min [facility] Oxygen saturation in 2022-01-07 13:45:00 97 /min [facility] Arterial blood by [facility] Pulse oximetry Branch Body temperature 2022-01-07 13:30:00 36.17 Radha [facility] Body height 2021-12-31 13:37:00 165.1 cm Universi ty of [facility] Body weight 2021-12-31 13:37:00 83.3 kg Universi ty [facility] BMI 2021-12-31 13:37:00 30.56 kg/m2 Universi ty [facility] height 2022-01-03 10:00:00 65 [in_i] [facility] weight 2022-01-03 10:00:00 185 [lb_av] [facility] temperature 2022-01-03 10:00:00 98 [degF] [facility] bmi 2022-01-03 10:00:00 30.78 kg/m2 [facility] height 2021-12-10 10:40:00 65 [in_i] [facility] weight 2021-12-10 10:40:00 186.0 [lb_av] [facility] temperature 2021-12-10 10:40:00 98.1 [degF] [facility] bmi 2021-12-10 10:40:00 30.95 kg/m2 [facility] oximetry 2021-12-10 10:40:00 87 % [facility] respiratory rate 2021-12-10 10:40:00 17 /min [facility] blood pressure 2021-12-10 10:40:00 127 mm[Hg] [facility] - systolic [facility] blood pressure 2021-12-10 10:40:00 65 mm[Hg] [facility] height 2021-11-22 09:40:00 65 [in_i] [facility] weight 2021-11-22 09:40:00 185.1 [lb_av] Common [facility] temperature 2021-11-22 09:40:00 97.7 [degF] Common [facility] bmi 2021-11-22 09:40:00 30.8 kg/m2 Common [facility] oximetry 2021-11-22 09:40:00 96 % Common [facility] respiratory rate 2021-11-22 09:40:00 17 /min [facility] blood pressure 2021-11-22 09:40:00 126 mm[Hg] [facility] - systolic [facility] blood pressure 2021-11-22 09:40:00 70 mm[Hg] [facility] - diastolic [facility] height 2021-10-30 14:30:00 65 [in_i] [facility] weight 2021-10-30 14:30:00 191.1 [lb_av] [facility] temperature 2021-10-30 14:30:00 98.1 [degF] [facility] bmi 2021-10-30 14:30:00 31.8 kg/m2 [facility] oximetry 2021-10-30 14:30:00 96 % [facility] respiratory rate 2021-10-30 14:30:00 17 /min [facility] blood pressure 2021-10-30 14:30:00 127 mm[Hg] [facility] systolic [facility] blood pressure 2021-10-30 14:30:00 60 mm[Hg] [facility] diastolic [facility] height 2021-10-17 14:15:00 65 [in_i] [facility] weight 2021-10-17 14:15:00 185 [lb_av] Common S [facility]irit [facility] temperature 2021-10-17 14:15:00 98.4 [degF] [facility] bmi 2021-10-17 14:15:00 30.78 kg/m2 [facility] oximetry 2021-10-17 14:15:00 96 % [facility] respiratory rate 2021-10-17 14:15:00 16 /min [facility] blood pressure 2021-10-17 14:15:00 137 mm[Hg] [facility] - systolic [facility] blood pressure 2021-10-17 14:15:00 67 mm[Hg] [facility] - diastolic [facility] height 2021-09-19 10:15:00 65 [in_i] [facility] weight 2021-09-19 10:15:00 186.6 [lb_av] [facility] temperature 2021-09-19 10:15:00 97.3 [degF] [facility] bmi 2021-09-19 10:15:00 31.05 kg/m2 [facility] oximetry 2021-09-19 10:15:00 92 % [facility] respiratory rate 2021-09-19 10:15:00 16 /min [facility] blood pressure 2021-09-19 10:15:00 136 mm[Hg] [facility] - systolic [facility] blood pressure 2021-09-19 10:15:00 72 mm[Hg] [facility] - diastolic [facility] height 2021-08-27 16:00:00 65 [in_i] [facility] weight 2021-08-27 16:00:00 183.4 [lb_av] [facility] bmi 2021-08-27 16:00:00 30.52 kg/m2 [facility] Systolic blood 2021-07-24 20:23:00 130 mm[Hg] Nirmal phan of [facility] Diastolic blood 2021-07-24 20:23:00 80 mm[Hg] Unive rsity of [facility] Heart rate 2021-07-24 20:23:00 67 /min Universi [facility] Body temperature 2021-07-24 20:23:00 36.67 Radha Univ ersity of [facility] Body height 2021-07-24 20:23:00 165.1 cm Universi ty [facility] Body weight 2021-07-24 20:23:00 [facility]326 [facility] BMI 2021-07-24 20:23:00 30.57 kg/m2 Universi [facility] height 2021-06-27 13:30:00 65 [in_i] [facility] weight 2021-06-27 13:30:00 180 [lb_av] [facility] temperature 2021-06-27 13:30:00 98 [degF] [facility] bmi 2021-06-27 13:30:00 29.95 kg/m2 [facility] height 2021-05-24 11:20:00 65 [in_i] [facility] weight 2021-05-24 11:20:00 178 [lb_av] [facility] temperature 2021-05-24 11:20:00 98 [degF] [facility] bmi 2021-05-24 11:20:00 29.62 kg/m2 [facility] blood pressure 2021-05-24 11:20:00 135 mm[Hg] [facility] blood pressure 2021-05-24 11:20:00 86 mm[Hg] [facility] height 2021-04-23 13:40:00 65 [in_i] [facility] weight 2021-04-23 13:40:00 178 [lb_av] [facility] temperature 2021-04-23 13:40:00 97.7 [degF] [facility] bmi 2021-04-23 13:40:00 29.62 kg/m2 [facility] oximetry 2021-04-23 13:40:00 97 % [facility] respiratory rate 2021-04-23 13:40:00 18 /min [facility] blood pressure 2021-04-23 13:40:00 130 mm[Hg] [facility] blood pressure 2021-04-23 13:40:00 72 mm[Hg] [facility] height 2021-03-23 09:30:00 65 [in_i] [facility] weight 2021-03-23 09:30:00 178 [lb_av] [facility] bmi 2021-03-23 09:30:00 29.62 kg/m2 [facility] height 2021-02-22 15:20:00 65 [in_i] [facility] weight 2021-02-22 15:20:00 178 [lb_av] [facility] temperature 2021-02-22 15:20:00 98 [degF] [facility] bmi 2021-02-22 15:20:00 29.62 kg/m2 [facility] - [facility] blood pressure 2021-02-22 15:20:00 134 mm[Hg] [facility] blood pressure 2021-02-22 15:20:00 75 mm[Hg] [facility] height 2021-02-15 09:00:00 65 [in_i] [facility] weight 2021-02-15 09:00:00 178 [lb_av] [facility] temperature 2021-02-15 09:00:00 97.5 [degF] [facility] bmi 2021-02-15 09:00:00 29.62 kg/m2 [facility] - [facility] height 2021-01-25 09:40:00 65 [in_i] [facility] - [facility] weight 2021-01-25 09:40:00 178 [lb_av] [facility] - [facility] temperature 2021-01-25 09:40:00 98 [degF] [facility] - [facility] bmi 2021-01-25 09:40:00 29.62 kg/m2 [facility] - [facility] blood pressure 2021-01-25 09:40:00 132 mm[Hg] [facility] blood pressure 2021-01-25 09:40:00 76 mm[Hg] [facility] height 2020-12-26 13:20:00 65 [in_i] [facility] - [facility] weight 2020-12-26 13:20:00 182.5 [lb_av] [facility] temperature 2020-12-26 13:20:00 98.5 [degF] [facility] bmi 2020-12-26 13:20:00 30.37 kg/m2 [facility] oximetry 2020-12-26 13:20:00 96 % [facility] - [facility] blood pressure 2020-12-26 13:20:00 140 mm[Hg] [facility] blood pressure 2020-12-26 13:20:00 65 mm[Hg] [facility] height 2020-12-21 13:40:00 65 [in_i] [facility]irit [facility] weight 2020-12-21 13:40:00 182.5 [lb_av] [facility] temperature 2020-12-21 13:40:00 97.1 [degF] [facility] - [facility] bmi 2020-12-21 13:40:00 30.37 kg/m2 [facility] S [facility] oximetry 2020-12-21 13:40:00 97 % Common [facility] respiratory rate 2020-12-21 13:40:00 17 /min Comm on [facility] blood pressure 2020-12-21 13:40:00 122 mm[Hg] [facility] blood pressure 2020-12-21 13:40:00 66 mm[Hg] [facility] - diastolic [facility] height 2020-12-05 10:00:00 65 [in_i] Common S [facility] weight 2020-12-05 10:00:00 182.5 [lb_av] [facility] temperature 2020-12-05 10:00:00 97.4 [degF] Common [facility] bmi 2020-12-05 10:00:00 30.37 kg/m2 [facility] S [facility] height 2020-10-26 16:00:00 65 [in_i] [facility] weight 2020-10-26 16:00:00 182.5 [lb_av] [facility] temperature 2020-10-26 16:00:00 97.2 [degF] [facility] bmi 2020-10-26 16:00:00 30.37 kg/m2 Common S [facility] oximetry 2020-10-26 16:00:00 95 % Common S [facility] respiratory rate 2020-10-26 16:00:00 17 /min Comm on [facility] blood pressure 2020-10-26 16:00:00 125 mm[Hg] [facility] - systolic [facility] blood pressure 2020-10-26 16:00:00 63 mm[Hg] [facility] - diastolic [facility] height 2020-05-16 15:00:00 65 [in_i] Common S pirit [facility] weight 2020-05-16 15:00:00 195.7 [lb_av] [facility] temperature 2020-05-16 15:00:00 97.2 [degF] Common S pirit [facility] bmi 2020-05-16 15:00:00 32.56 kg/m2 [facility] oximetry 2020-05-16 15:00:00 100 % Common S [facility] respiratory rate 2020-05-16 15:00:00 17 /min [facility] on [facility] blood pressure 2020-05-16 15:00:00 128 mm[Hg] [facility] - systolic [facility] blood pressure 2020-05-16 15:00:00 60 mm[Hg] [facility] height 2020-04-27 15:20:00 65 [in_i] [facility] weight 2020-04-27 15:20:00 190.0 [lb_av] [facility] temperature 2020-04-27 15:20:00 97.0 [degF] [facility] bmi 2020-04-27 15:20:00 31.61 kg/m2 [facility] oximetry 2020-04-27 15:20:00 97 % [facility] respiratory rate 2020-04-27 15:20:00 16 /min [facility] blood pressure 2020-04-27 15:20:00 135 mm[Hg] [facility] - systolic [facility] blood pressure 2020-04-27 15:20:00 73 mm[Hg] [facility] height 2020-04-13 14:40:00 65 [in_i] [facility] weight 2020-04-13 14:40:00 193.6 [lb_av] [facility] temperature 2020-04-13 14:40:00 96.9 [degF] [facility] bmi 2020-04-13 14:40:00 32.21 kg/m2 Common S pirit [facility] oximetry 2020-04-13 14:40:00 97 % Common S pirit [facility] respiratory rate 2020-04-13 14:40:00 16 /min [facility] on [facility] blood pressure 2020-04-13 14:40:00 135 mm[Hg] [facility] - systolic [facility] blood pressure 2020-04-13 14:40:00 65 mm[Hg] [facility] - diastolic [facility] height 2020-03-30 10:45:00 65 [in_i] [facility] weight 2020-03-30 10:45:00 191.2 [lb_av] [facility] temperature 2020-03-30 10:45:00 97 [degF] [facility] bmi 2020-03-30 10:45:00 31.81 kg/m2 [facility] oximetry 2020-03-30 10:45:00 99 % Common S [facility] respiratory rate 2020-03-30 10:45:00 18 /min [facility] on [facility] blood pressure 2020-03-30 10:45:00 145 mm[Hg] [facility] - systolic [facility] blood pressure 2020-03-30 10:45:00 71 mm[Hg] [facility] - diastolic [facility] height 2020-03-28 14:20:00 65 [in_i] Common S [facility]irit [facility] weight 2020-03-28 14:20:00 192.5 [lb_av] [facility] temperature 2020-03-28 14:20:00 97.0 [degF] [facility] bmi 2020-03-28 14:20:00 32.03 kg/m2 Common S pirit [facility] oximetry 2020-03-28 14:20:00 98 % Common S [facility]irit [facility] respiratory rate 2020-03-28 14:20:00 16 /min [facility] blood pressure 2020-03-28 14:20:00 133 mm[Hg] [facility] - systolic [facility] blood pressure 2020-03-28 14:20:00 67 mm[Hg] [facility] - diastolic [facility] height 2020-03-16 16:30:00 65 [in_i] [facility] weight 2020-03-16 16:30:00 192.7 [lb_av] [facility] temperature 2020-03-16 16:30:00 97.2 [degF] [facility] bmi 2020-03-16 16:30:00 32.06 kg/m2 [facility] oximetry 2020-03-16 16:30:00 100 % [facility] respiratory rate 2020-03-16 16:30:00 17 /min [facility] blood pressure 2020-03-16 16:30:00 137 mm[Hg] [facility] - systolic [facility] blood pressure 2020-03-16 16:30:00 70 mm[Hg] [facility] - diastolic [facility] BP Systolic 2021-12-05 13:19:00 BP Diastolic 2021-12-05 13:19:00 Weight Measured 2021-12-05 13:19:00 Height Measured 2021-12-05 13:19:00 Body Temperature 2021-12-05 13:19:00 Heart Rate 2021-12-05 13:19:00 Respiratory Rate 2021-12-05 13:19:00 BP Systolic 2021-02-16 10:53:00 BP Diastolic 2021-02-16 10:53:00 Weight Measured 2021-02-16 10:53:00 180.00 pounds Height Measured 2021-02-16 10:53:00 64.00 inches Body Temperature 2021-02-16 10:53:00 Heart Rate 2021-02-16 10:53:00 Respiratory Rate 2021-02-16 10:53:00 BP Systolic 2020-12-07 16:51:00 142 mm[Hg] BP Diastolic 2020-12-07 16:51:00 82 mm[Hg] Weight Measured 2020-12-07 16:51:00 183.80 pounds Height Measured 2020-12-07 16:51:00 64.00 inches Body Temperature 2020-12-07 16:51:00 98.60 degrees Heart Rate 2020-12-07 16:51:00 72.00 /min Respiratory Rate 2020-12-07 16:51:00 17.00 /min BP Systolic 2019-11-29 14:08:00 120 mm[Hg] BP Diastolic 2019-11-29 14:08:00 69 mm[Hg] Weight Measured 2019-11-29 14:08:00 193.60 pounds Height Measured 2019-11-29 14:08:00 64.00 inches Body Temperature 2019-11-29 14:08:00 98.90 degrees Heart Rate 2019-11-29 14:08:00 75.00 /min Respiratory Rate 2019-11-29 14:08:00 16.00 /min BP Systolic 2019-05-10 14:23:00 123 mm[Hg] BP Diastolic 2019-05-10 14:23:00 77 mm[Hg] Weight Measured 2019-05-10 14:23:00 187.00 pounds Height Measured 2019-05-10 14:23:00 64.00 inches Body Temperature 2019-05-10 14:23:00 98.50 degrees Heart Rate 2019-05-10 14:23:00 68.00 /min Respiratory Rate 2019-05-10 14:23:00 BP Systolic 2017-03-12 10:56:00 135 mm[Hg] BP Diastolic 2017-03-12 10:56:00 82 mm[Hg] Weight Measured 2017-03-12 10:56:00 174.40 pounds Height Measured 2017-03-12 10:56:00 64.00 inches Body Temperature 2017-03-12 10:56:00 98.20 degrees Heart Rate 2017-03-12 10:56:00 72.00 /min Respiratory Rate 2017-03-12 10:56:00 15.00 /min BP Systolic 2016-10-28 14:19:00 129 mm[Hg] BP Diastolic 2016-10-28 14:19:00 80 mm[Hg] Weight Measured 2016-10-28 14:19:00 175.40 pounds Height Measured 2016-10-28 14:19:00 64.00 inches Body Temperature 2016-10-28 14:19:00 98.50 degrees Heart Rate 2016-10-28 14:19:00 72.00 /min Respiratory Rate 2016-10-28 14:19:00 16.00 /min BP Systolic 2016-10-23 17:23:00 149 mm[Hg] BP Diastolic 2016-10-23 17:23:00 83 mm[Hg] Weight Measured 2016-10-23 17:23:00 175.20 pounds Height Measured 2016-10-23 17:23:00 64.00 inches Body Temperature 2016-10-23 17:23:00 97.70 degrees Heart Rate 2016-10-23 17:23:00 63.00 /min Respiratory Rate 2016-10-23 17:23:00 BP Systolic 2016-10-17 14:08:00 122 mm[Hg] BP Diastolic 2016-10-17 14:08:00 77 mm[Hg] Weight Measured 2016-10-17 14:08:00 177.00 pounds Height Measured 2016-10-17 14:08:00 64.00 inches Body Temperature 2016-10-17 14:08:00 98.10 degrees Heart Rate 2016-10-17 14:08:00 66.00 /min Respiratory Rate 2016-10-17 14:08:00 18.00 /min BP Systolic 2016-09-27 16:23:00 124 mm[Hg] BP Diastolic 2016-09-27 16:23:00 72 mm[Hg] Weight Measured 2016-09-27 16:23:00 173.60 pounds Height Measured 2016-09-27 16:23:00 64.00 inches Body Temperature 2016-09-27 16:23:00 98.10 degrees Heart Rate 2016-09-27 16:23:00 62.00 /min Respiratory Rate 2016-09-27 16:23:00 Procedures Procedure Date / Time Performing Clinician Source Performed [place] TIME OR 2022-02-04 13:33:00 Tyler Chang [facility] (NON-REPORTABLE) Medical Branch BLOCK EPIDURAL 2022-02-04 13:19:00 Tyler Chang [facility] Medical Branch DAY SURGERY - ADC 2022-02-04 05:01:00 Doctor Unassigned, [facility] ASSIGNMENT OF BENEFITS 2022-02-01 13:22:22 [facility] INSURANCE CORRESPONDENCE 2022-01-22 05:01:00 Doctor Barbara [facility] FL TIME OR 2022-01-21 13:09:57 Tyler Chang [facility] (NON-REPORTABLE) Medical Branch [place] TIME OR 2022-01-21 13:09:57 Tyler Chang [facility] (NON-REPORTABLE) Medical Branch BLOCK EPIDURAL 2022-01-21 12:20:00 Tyler Chang [facility] Medical Branch POCT GLUCOSE (AUTOMATED) 2022-01-21 11:52:00 Tyler Chang [facility] POCT GLUCOSE (AUTOMATED) 2022-01-21 11:52:00 Tyler Chang [facility] POCT GLUCOSE(AGE >30DAYS) 2022-01-21 11:50:00 [facility]AGE >30DAYS[facility] 2022-01-21 11:50:00 [facility] [place] [facility] - [facility] 2022-01-21 05:01:00 Doctor Barbara [facility] Name Medical Branch ASSIGNMENT OF BENEFITS 2022-01-19 13:49:22 Doctor Barbara, [facility] [place] TIME OR 2022-01-07 14:28:08 Tyler Chang [facility] (NON-REPORTABLE) Medical Branch BLOCK EPIDURAL 2022-01-07 13:11:00 Tyler Chang [facility] Medical Branch PATIENT QUESTIONNAIRE 2022-01-07 05:01:00 Doctor Lupessaquiles, [facility] ASSIGNMENT OF BENEFITS 2022-01-04 15:33:26 [facility] [place] [facility] ASSIGNMENT OF BENEFITS 2021-12-27 15:16:29 [facility] [place] [facility] EXTERNAL PROVIDER RECORDS 2021-12-26 05:01:00 Doctor Unassigned, [facility] [facility] EXTERNAL PROVIDER RECORDS 2021-12-26 05:01:00 Doctor Unassaquiles, [facility] ASSIGNMENT OF BENEFITS 2020-10-27 16:14:10 Doctor Unassigned, [facility] [place] [facility] [id number] Ecg Routine Ecg 2016-10-23 00:00:00 W/least 12 Lds W/i r [id number] Ecg Routine Ecg 2016-07-09 00:00:00 W/least 12 Lds W/i r Plan of Care Planned Activity Planned Date Details Comments Source Future Scheduled 2021-10-16 Depression screening Uni versity of Test 00:00:00 (procedure) [code = [facility] dical [id number]] Branch Future Scheduled 2021-10-16 Depression screening Uni versity of Test 00:00:00 (procedure) [code = [facility] dical [id number]] Branch Future Scheduled 2021-02-21 INFLUENZA VACCINE Univer sity of Test 00:00:00 (Season Ended) [code [facility] edical = INFLUENZA VACCINE Branch (Season Ended)] Future Scheduled 2021-02-21 INFLUENZA VACCINE Univer sity of Test 00:00:00 (Season Ended) [code [place] [facility] = INFLUENZA VACCINE Branch (Season Ended)] Diagnostic Test 2020-10-27 COVID-19 (ID NOW Expected: [facility] Pending 00:00:00 RAPID TESTING) [code 10/27/2020, [facility] edical = 10764-2] Expires: Branch 10/27/2021 Future Scheduled 2017-07-17 Screening for University of Test 00:00:00 malignant neoplasm [place] [facility] of lung (procedure) Branch [code = 800799919] Future Scheduled 2017-07-17 Screening for University of Test 00:00:00 malignant neoplasm [place] [facility] of lung (procedure) Branch [code = 743489652] Future Scheduled 2007-02-01 Screening for University of Test 00:00:00 malignant neoplasm [place] [facility] of cervix Branch (procedure) [code = 343797517] Future Scheduled 2007-02-01 Screening for University of Test 00:00:00 malignant neoplasm [place] [facility] of cervix Branch (procedure) [code = 031278748] Future Scheduled 2007 Flexible fiberoptic Univ ersity of Test 00:00:00 sigmoidoscopy [place] [facility] (procedure) [code = Branch [id number]] Future Scheduled 2007 Screening for University of Test 00:00:00 malignant neoplasm [place] [facility] of colon (procedure) Branch [code = 051413875] Future Scheduled 2007 Screening for University of Test 00:00:00 malignant neoplasm [place] [facility] of colon (procedure) Branch [code = 913808822] Future Scheduled 2007 Zoster Recombinant Unive rsity of Test 00:00:00 Vaccine (SHINGRIX) [place] [facility] ical (1 of 2) [code = Branch Zoster Recombinant Vaccine (SHINGRIX) (1 of 2)] Future Scheduled 2007 Screening for occult Uni versity of Test 00:00:00 blood in feces [facility] (procedure) [code = Branch 708343036] Future Scheduled 2007 Stool DNA-based Universi ty of Test 00:00:00 colorectal cancer [facility] screening Branch (procedure) [code = 581237956963686] Future Scheduled 2007 Flexible fiberoptic Univ ersity of Test 00:00:00 sigmoidoscopy [place] [facility] (procedure) [code = Branch 09074741] Future Scheduled 2007 Screening for University of Test 00:00:00 malignant neoplasm [place] [facility] of colon (procedure) Branch [code = 759036180] Future Scheduled 2007 Screening for University of Test 00:00:00 malignant neoplasm [place] [facility] ical of colon (procedure) Branch [code = 582843935] Future Scheduled 2007 Zoster Recombinant Unive rsity of Test 00:00:00 Vaccine (SHINGRIX) [place] [facility] ical (1 of 2) [code = Branch Zoster Recombinant Vaccine (SHINGRIX) (1 of 2)] Future Scheduled 2007 Screening for occult Uni versity of Test 00:00:00 blood in feces [facility] (procedure) [code = Branch 489646737] Future Scheduled 2007 Stool DNA-based Universi ty of Test 00:00:00 colorectal cancer [facility] screening Branch (procedure) [code = 062692527821647] Future Scheduled 1997 Screening for University of Test 00:00:00 malignant neoplasm [place] [facility] of breast Branch (procedure) [code = 330208811] Future Scheduled 1997 Screening for University of Test 00:00:00 malignant neoplasm [place] [facility] of breast Branch (procedure) [code = 805393635] Future Scheduled 1976-01-15 DTaP,Tdap,and Td Univers ity of Test 00:00:00 Vaccines (1 - Tdap) [place] [facility] dical [code = Branch DTaP,Tdap,and Td Vaccines (1 - Tdap)] Future Scheduled 1976-01-15 DTaP,Tdap,and Td Univers ity of Test 00:00:00 Vaccines (1 - Tdap) [place] [facility] [code = Branch DTaP,Tdap,and Td Vaccines (1 - Tdap)] Future Scheduled 1975 Hepatitis C University of Test 00:00:00 screening [place] [facility] (procedure) [code = Branch 256387541] Future Scheduled 1975 Hepatitis C University of Test 00:00:00 screening [place] [facility] (procedure) [code = Branch 060696663] Goal Plan of Care Note [code = 83935-1] Goal Plan of Care Note [code = 80525-2] Goal Plan of Care Note [code = 43964-5] Goal Plan of Care Note [code = 39764-4] Goal Plan of Care Note [code = 19804-8] Goal Plan of Care Note [code = 69191-0] Goal Plan of Care Note [code = 54343-1] Goal Plan of Care Note [code = 64689-7] Goal Plan of Care Note [code = 98484-0] Goal Plan of Care Note [code = 59174-6] Goal Plan of Care Note [code = 62939-5] Goal Plan of Care Note [code = 11918-7] Goal Plan of Care Note [code = 84653-0] Goal Plan of Care Note [code = 98516-6] Goal Plan of Care Note [code = 12491-1] Goal Plan of Care Note [code = 63644-2] Goal Plan of Care Note [code = 00658-4] Goal Plan of Care Note [code = 53195-8] Goal Plan of Care Note [code = 19546-2] Goal Plan of Care Note [code = 90527-3] Goal Plan of Care Note [code = 57586-9] Goal Plan of Care Note [code = 58966-2] Goal Plan of Care Note [code = 37982-9] Goal Plan of Care Note [code = 57928-2] Goal Plan of Care Note [code = 21779-1] Goal Plan of Care Note [code = 63439-2] Goal Plan of Care Note [code = 36478-6] Goal Plan of Care Note [code = 00214-1] Goal Plan of Care Note [code = 60419-2] Goal Plan of Care Note [code = 78210-1] Goal Plan of Care Note [code = 35393-7] Goal Plan of Care Note [code = 38696-5] Goal Plan of Care Note [code = 80062-2] Goal Plan of Care Note [code = 42963-7] Goal Plan of Care Note [code = 60972-1] Goal Plan of Care Note [code = 11273-4] Goal Plan of Care Note [code = 08976-1] Goal Plan of Care Note [code = 88452-1] Goal Plan of Care Note [code = 49890-7] Goal Plan of Care Note [code = 11841-9] Goal Plan of Care Note [code = 70022-3] Goal Plan of Care Note [code = 11333-4] Goal Plan of Care Note [code = 87457-3] Goal Plan of Care Note [code = 60460-8] Goal Plan of Care Note [code = 96362-0] Goal Plan of Care Note [code = 40007-4] Goal Plan of Care Note [code = 41858-8] Goal Plan of Care Note [code = 44116-7] Goal Plan of Care Note [code = 78310-1] Goal Plan of Care Note [code = 69624-0] Goal Plan of Care Note [code = 35584-8] Goal Plan of Care Note [code = 65505-4] Encounters Start End Encounter Admission Attending Care Care Encounter Source Date/Time Date/Time Type Type Clinicians Facility Department ID 2022-04-26 [facility] [id number] Common 14:39:00 [facility] 2022-04-25 Outpatient [facility] [id number] Common 13:11:00 [facility] 2022-01-17 Outpatient Miller, STLMLC STLMLC [id number] Common 13:47:01 Ton[facility] 2022-01-07 Outpatient [facility] [id number] [place] 08:42:27 [id number] [facility] 2021-10-30 Outpatient Miller, STLMLC STLMLC [id number] Common 15:01:00 Tonio [facility] 2021-10-04 Outpatient Miller, STLMLC STLMLC [id number] Common 08:34:01 Ton[facility] 2021-07-18 Outpatient Miller, STLMLC STLMLC [id number] Common 14:19:22 Ton[facility] 2021-07-18 Outpatient Miller, STLMLC STLMLC [id number] Common 13:45:16 Tonio 62080 [facility] 2021-07-18 Outpatient Miller, STLMLC STLMLC [id number] Common 12:59:49 Tonio 95314 [facility] 2021-07-18 Outpatient Miller, STLMLC STLMLC [id number] Common 12:31:12 Tonio 47493 [facility] 2021-07-18 Outpatient Miller, STLMLC STLMLC [id number] Common 12:29:23 Tonio 70369 [facility] 2021-07-18 Outpatient Miller, STLMLC STLMLC [id number] Common 12:24:50 Tonio 14762 [facility] 2021-07-18 Outpatient Miller, STLMLC STLMLC [id number] Common 12:24:31 Tonio 03943 [facility] 2021-07-18 Outpatient Miller, STLMLC STLMLC [id number] Common 12:23:16 Tonio 32270 [facility] 2021-07-18 Outpatient Miller, STLMLC STLMLC [id number] Common 12:09:35 Tonio 38738 [facility] 2021-07-18 Outpatient Miller, STLMLC STLMLC [id number] Common 12:08:47 Tonio 19423 [facility] 2021-07-18 Outpatient Miller, STLMLC STLMLC [id number] Common 12:08:21 Tonio 30889 [facility] 2021-07-18 Outpatient Miller, STLMLC STLMLC [id number] Common 12:07:39 Tonio 47565 [facility] 2021-07-18 Outpatient Miller, STLMLC STLMLC [id number] Common 11:57:35 Tonio 09207 [facility] 2021-07-18 Outpatient Miller, STLMLC STLMLC [id number] Common 11:55:10 Tonio 28810 [facility] 2021-07-18 Outpatient Miller, STLMLC STLMLC [id number] Common 11:25:38 Tonio 86020 [facility] 2021-07-18 Outpatient Miller, STLMLC STLMLC [id number] Common 11:24:24 Tonio 19390 [facility] 2021-07-18 Outpatient Miller, STLMLC STLMLC [id number] Common 11:20:51 Tonio 09559 [facility] 2021-07-18 Outpatient Miller, STLMLC STLMLC [id number] Common 11:19:05 Tonio 80974 [facility] 2021-07-18 Outpatient Miller, STLMLC STLMLC [id number] Common 11:17:38 Tonio 04939 [facility] 2021-07-18 Outpatient Miller, STLMLC STLMLC [id number] Common 11:10:37 Tonio 17259 [facility] 2021-07-18 Outpatient Miller, STLMLC STLMLC [id number] Common 11:07:32 Tonio 06429 [facility] 2021-07-18 Outpatient Miller, STLMLC STLMLC [id number] Common 11:07:07 Tonio 55028 [facility] 2021-07-18 Outpatient Miller, STLMLC [facility] [id number] Common 11:06:50 [facility] 16882 [facility] 2021-07-18 Outpatient Miller, STMORRIS [facility] [id number] Common 11:04:55 [facility] 72540 [facility] 2021-07-18 Outpatient Miller, [facility]IS [facility] [id number] Common 11:00:24 [facility] 07553 [facility] 2021-04-22 Outpatient Briseida CHANG [facility] ANS [id number] Univers 14:22:47 [facility] 2021-04-22 Outpatient R BERNARDO [facility] ANS [id number] Univers 10:11:45 [facility] 2021-04-22 Outpatient R BERNARDO [facility] ANS [id number] Univers 10:11:40 [facility] 2021-04-20 Outpatient Briseida CHANG [facility] KIERAN [id number] Univers 17:34:36 [facility] 2021-04-20 [facility] [id number] Univers 14:46:00 [facility] 2021-04-20 Outpatient [facility] KIERAN [id number] Univers 13:57:14 [facility] 2021-04-20 Outpatient Briseida [facility] K[facility] [id number] Univers 01:30:11 [facility] 2021-04-20 Outpatient R BERNARDO [facility] KIERAN [id number] Univers 01:30:04 [facility] 2021-04-20 [facility] K[facility] [id number] Univers 01:29:58 [facility] 2021-04-19 Emergency [facility] [id number] Univers 16:47:45 [facility] 2021-04-19 Outpatient Briseida [facility] [id number] Univers [facility]:35[facility] R BALJEET [facility] [id number] Univers 15:34:38 [facility] 2021-04-19 Emergency [facility] [id number] Univers 15:15:49 [facility] 2021-04-19 Outpatient Briseida CHANG [facility] KIERAN [id number] Univers 12:34:04 [facility] 2021-04-19 Outpatient Briseida CHANG [facility] KIERAN [id number] Univers 11:32:12 [facility] 2022-05-13 2022-05-13 (TEL) STLMLC STLMLC [id number] Co mmon 00:00:00 00:00:00 [facility] 2022-05-08 2022-05-08 (TEL) STLMLC STLMLC [id number] Co mmon 00:00:00 00:00:00 [facility] 2022-04-29 2022-04-29 OFFICE STLMLC STLMLC [id number] Co mmon 00:00:00 00:00:00 VISIT [facility] 4 [facility] 2022-04-17 2022-04-17 Outpatient SFA SFA [id number] Rock 14:12:29 14:12:29 1026 F Ronnell 2022-04-17 2022-04-17 Outpatient [id number] 00:00:00 00:00:00 Visit [id number] 2022-04-17 2022-04-17 (TEL) STLMLC STLMLC [id number] Co mmon 00:00:00 00:00:00 [facility] 2022-04-10 2022-04-10 Outpatient SFA SFA [id number] [place] 14:47:35 14:47:35 1019 F Ronnell 2022-04-10 2022-04-10 (TEL) STLMLC STLMLC [id number] Co mmon 00:00:00 00:00:00 [facility] 2022-03-27 2022-03-27 OFFICE STLMLC STLMLC [id number] Co mmon 00:00:00 00:00:00 VISIT Spirit ESTAB PT - CHI LEVEL 2 [facility] 2022-02-28 2022-02-28 Outpatient R TONIE MILLER [facility] [id number] Univers 08:00:00 08:00:00 ity of [facility] 2022-02-12 2022-02-12 OFFICE STLMLC STLC [id number] Co mmon 00:00:00 00:00:00 VISIT Spirit ESTAB PT - CHI LEVEL 2 [facility] 2022-02-04 2022-02-04 [facility] [id number] Univers 07:05:00 09:09:00 TYLER ity of [facility] 2022-02-04 2022-02-04 [facility][1] 1.2.840.114 [id number] Univers 07:05:00 09:09:00 Encounter Tyler Dio PENGTON 350.1.13.10 ity of [place] [id number] [facility] [address] 2022-02-04 2022-02-04 Surgery [facility] 1.2.254.994 [id number] Univers 08:25:00 08:48:00 Tyler PENGTON 350.1.13.10 it[place] of [place] [id number] [facility] [address] 2022-02-04 2022-02-04 Orders Doctor ANGLE 1.2.840.114 [id number] Univers 00:00:00 00:00:00 Only Unassigned, HECTOR 350.1.13.10 ity of [facility] 4.2.7.2.686 João as [id number] [facility] [address] 2022-02-01 2022-02-01 Laboratory Only, Adc Test [facility] 1.2.840. 114 [id number] Univers 09:00:00 09:15:00 Only Bernardo, Tyler Dio ASKEW 350.1.13.1 0 it[place] of [place] [id number] [facility] [address] 2022-02-01 2022-02-01 [facility] [id number] Univers 09:00:00 09:00:00 [facility]01 2022-02-01 Orders Doctor ANGLE 1.2.840.114 [id number] Univers 00:00:00 00:00:00 Only Unassigned, HECTOR 350.1.13.[address] [facility] 4.2.7.2.686 João as [id number] [facility] [address] 2022-01-28 2022-01-28 OFFICE STLMLC STLMLC [id number] Co mmon 00:00:00 00:00:00 VISIT Spirit ESTAB PT - CHI LEVEL 4 [facility] 2022-01-22 2022-01-22 Orders Doctor ANGLE 1.2.840.114 [id number] Univers 00:00:00 00:00:00 Only Unassigned, HECTOR 350.1.13.[address] [facility] 4.2.7.2.686 João as [id number] [facility] [address] 2022-01-21 2022-01-21 Outpatient R COLBY RACHELLE [facility] B [id number] Univers 14:00:00 14:00:00 RACHELLE BOWMAN [facility] 2022-01-21 2022-01-21 Outpatient [facility] [id number] Univers 06:28:00 08:09:00 TYLER ity [facility] 2022-01-21 2022-01-21 Hospital [facility] 1.2.840.114 [id number] Univers 06:28:00 08:09:00 Encounter Tyler ASKEW 350.1.13.10 ity [facility] 4.2.7.2.686 [place] [facility] [id number] [facility] [address] 2022-01-21 2022-01-21 Surgery [facility] 1.2.020.204 [id number] Univers 07:25:00 07:48:00 Tyler ASKEW 350.1.13.10 [facility] [facility] [place] [id number] [facility] [address] 2022-01-21 2022-01-21 Orders Doctor ANGLE 1.2.840.114 [id number] Univers 00:00:00 00:00:00 Only Unassigned, HECTOR 350.1.13.10 ity of [facility] 4.2.7.2.686 João as [id number] [facility] [address] 2022-01-19 2022-01-19 Laboratory Only, Adc Test [facility] 1.2.840. 114 [id number] Univers 09:15:00 09:30:00 Only Gilson Changt Dio JAMILAH 350.1.13.1 0 ity of [place] 4.2.7.2.[place] [id number] [facility] [address] 2022-01-19 2022-01-19 Outpatient R BERNARDO [facility] [id number] Univers 09:15:00 09:15:00 [facility] 2022-01-19 2022-01-19 Orders Doctor ANGLE 1.2.840.114 [id number] Univers 00:00:00 00:00:00 Only Unassigned, HECTOR 350.1.13.10 ity of [facility] 4.2.7.2.686 João as [id number] [facility] [address] 2022-01-17 2022-01-17 OFFICE [facility] [id number] Co mmon 00:00:00 00:00:00 VISIT Spirit ESTAB PT - CHI LEVEL 2 [facility] 2022 2022 Outpatient R RACHELLE BOWMAN [facility] B [id number] Univers 15:30:00 15:30:00 RACHELLE BOWMAN [facility] 2022-01-07 2022-01-07 Outpatient R BERNARDO [facility] ANS [id number] Univers 06:46:00 09:11:00 [facility] 2022-01-07 2022-01-07 [facility] Bernardo, [facility] 1.2.840.114 [id number] Univers 06:46:00 09:11:00 Encounter Tyler ASKEW 350.1.13.10 ity of [place] [id number] [facility] [address] 2022-01-07 2022-01-07 Surgery Bernardo [facility] 1.2.075.909 [id number] Univers 08:23:00 08:46:00 Tyler ASKEW 350.1.13.10 ity of [place] [id number] [facility] [address] 2022-01-07 2022-01-07 Orders Doctor ANGLE 1.2.840.114 [id number] Univers 00:00:00 00:00:00 Only Unassigned, HECTOR 350.1.13.10 ity of [facility] 4.2.7.2.686 [place]ão as [phone] [facility] [address] 2022-01-04 2022-01-04 Laboratory Only, Adc Test [facility] 1.2.840. 114 [id number] Univers 09:45:00 10:00:00 Only Tyler Chang 350.1.13.1 0 it[place] of [place] [id number] [facility] [address] 2022-01-04 2022-01-04 [facility] [id number] Univers 09:45:00 09:45:00 TYLER ity of [facility] 2022-01-04 2022-01-04 Orders Doctor ANGLE 1.2.840.114 [id number] Univers 00:00:00 00:00:00 Only Unassigned, HECTOR 350.1.13.10 ity of [facility] 4.2.7.2.686 João as [id number] [facility] [address] 2022-01-03 2022-01-03 OFFICE [facility] [id number] Co mmon 00:00:00 00:00:00 VISIT Spirit ESTAB PT - CHI LEVEL 2 [facility] 2022-01-03 2022-01-03 (TEL) STLMLC STLMLC [id number] Co mmon 00:00:00 00:00:00 [facility] 2022-01-02 2022-01-02 (TEL) STLMLC STLMLC [id number] Co mmon 00:00:00 00:00:00 [facility] 2021-12-27 2021-12-27 Captain/Airline Pilot Candace, Tommy Lab Main [facility] 1.2.8 40.114 [id number] Univers 10:15:00 10:30:00 Visit Tyler Chang 350.1.13.1 0 ity of [place] 4.[place].2.686 [place] PROFESSIO [id number] [address] 2021-12-27 2021-12-27 Outpatient R BERNARDO [facility] [id number] [facility] 10:15:00 10:15:00 TYLER ity [facility] 2021-12-27 2021-12-27 Orders Doctor ANGLE 1.2.840.114 [id number] Univers 00:00:00 00:00:00 Only Unassigned, HECTOR 350.1.13.[address] [facility] 4.2.7.2.686 [place]ão as [id number] [address] 2021-12-13 2021-12-13 (TEL) STLMLC STLMLC [id number] Co mmon 00:00:00 00:00:00 [facility] 2021-12-11 2021-12-11 (TEL) STLMLC STLMLC [id number] Co mmon 00:00:00 00:00:00 [facility] 2021-12-10 2021-12-10 OFFICE STLMLC STLMLC [id number] Co mmon 00:00:00 00:00:00 VISIT EST Spir it PT LEVEL 3 - [facility] 2021-12-09 2021-12-09 (TEL) STLMLC STLMLC [id number] Co mmon 00:00:00 00:00:00 [facility] 2021-12-05 2021-12-05 Outpatient R TRITSRACHELLE RNICON [facility] B [id number] Univers 11:30:00 11:30:00 ITZELJULIAN RACHELLE [facility] 2021-12-04 2021-12-04 (TEL) STLMLC STLMLC [id number] Co mmon 00:00:00 00:00:00 [facility] 2021-11-22 2021-11-22 OFFICE STLMLC STLMLC [id number] Co mmon 00:00:00 00:00:00 VISIT Spirit ESTAB PT - CHI LEVEL 2 [facility] 2021-11-07 2021-11-07 (TEL) STLMLC STLMLC [id number] Co mmon 00:00:00 00:00:00 [facility] 2021-10-30 2021-10-30 OFFICE STLMLC STLMLC [id number] Co mmon 00:00:00 00:00:00 VISIT Spirit ESTAB PT - CHI LEVEL 4 [facility] 2021-10-23 2021-10-23 (TEL) STLMLC STLMLC [id number] Co mmon 00:00:00 00:00:00 Spirit [facility] 2021-10-17 2021-10-17 OFFICE STLMLC STLMLC [id number] Co mmon 00:00:00 00:00:00 VISIT Spirit ESTAB PT - CHI LEVEL 2 [facility] 2021-10-02 2021-10-02 (TEL) STLMLC STLMLC [id number] Co mmon 00:00:00 00:00:00 [facility] 2021-09-27 2021-09-27 Outpatient Briseida GEIGER [facility] [id number] Univers 14:30:00 [facility]:30:[facility] 2021-[facility] 2021-09-19 OFFICE STLMLC STLMLC [id number] Co mmon 00:00:00 00:00:00 VISIT EST Spir it PT LEVEL 3 - [facility] 2021-09-18 2021-09-18 Outpatient Briseida GEIGER [facility] [id number] Univers 10:45:00 10:45:00 OTONIEL [facility] 2021-09-11 2021-09-11 Outpatient Briseida GEIGER [facility] [id number] Univers 09:30:00 09:30:00 OTONIEL acharya [facility] 2021-08-30 2021-08-30 (INJ) STLMLC STLMLC [id number] Co mmon 00:00:00 00:00:00 Injection Spir it - [facility] 2021-08-27 2021-08-27 OL DIG E/M STLMLC STLMLC [id number] Common 00:00:00 00:00:00 [facility] 11-20 Spir it MIN [facility] 2021-08-20 2021-08-20 (TEL) STLMLC STLMLC [id number] Co mmon 00:00:00 00:00:00 [facility] 2021-08-10 2021-08-10 (TEL) STLMLC STLMLC [id number] Co mmon 00:00:00 00:00:00 [facility] 2021-07-30 2021-07-30 Telephone Fely [facility] 1.2.840.114 [id number] Univers 00:00:00 00:00:00 Otoniel ITZ 350.1.13.10 it y of [facility] 4.2.7.2.686 [facility] [id number] [address] 2021-07-25 2021-07-25 (INJ) STLMLC STLMLC [id number] Co mmon 00:00:00 00:00:00 Injection Spir it - [facility] 2021-07-24 2021-07-24 Outpatient Briseida GEIGER [facility] [id number] Univers 14:30:00 14:50:25 OTONIEL acharya [facility] 2021-07-24 2021-07-24 Office Fely [facility] CANTU 1.2.840.114 [id number] Univers 14:30:00 14:50:25 Visit Otoniel LUCIO 350.1.13.10 it y of [facility] 4.2.7.2.686 [facility] [id number] [address] 2021-07-11 2021-07-11 (TEL) STLMLC STLMLC [id number] Co mmon 00:00:00 00:00:00 [facility] 2021-07-02 2021-07-02 Outpatient Briseida MICHELLELETHA, [facility] ANS [id number] Univers 11:00:00 11:00:00 OTONIEL ity [facility] 2021-07-02 2021-07-02 Out[facility] [id number] Univers 06:47:00 08:10:00 TYLER ity [facility] 2021-07-02 2021-07-02 [facility][1] 1.2.840.114 [id number] Univers 06:47:00 08:10:00 Encounter Tyler ASKEW 350.1.13.10 it[place] [facility] [place]2.[place] [id number] [facility] [address] 2021-07-02 2021-07-02 Surgery [facility] 1.2.834.439 [id number] Univers 07:30:00 07:50:00 Tyler Dio JAMILAH 350.1.13.10 ity [place] [facility] 4.2.[place] [id number] [facility] [address] 2021-07-02 2021-07-02 Orders Doctor ANGLE 1.2.840.114 [id number] Univers 00:00:00 00:00:00 Only Unassigned, HECTOR 350.1.13.10 ity of [place] [facility] 4.2.7.2.686 João as [id number] [facility] [address] 2021-06-30 2021-06-30 Laboratory Only, Adc Test [facility] 1.2.840. 114 [id number] Univers 10:00:00 10:15:00 Only Amalia Malone 350.1.13.10 ity of [facility] 4.2.7.2.[place] [id number] [facility] [address] 2021-06-30 2021-06-30 Outpatient Briseida MALONE [facility] [id number] Univers 10:00:00 10:00:00 AMALIA [facility] 2021-06-30 2021-06-30 Orders Doctor ANGLE 1.2.840.114 [id number] Univers 00:00:00 00:00:00 Only Unassigned, HECTOR 350.1.13.[address] [facility] 4.2.7.2.686 João as [id number] [address] 2021-06-29 2021-06-29 [facility] [id number] Univers 08:15:00 08:15:00 TYLER [facility] 2021-06-28 2021-06-28 Outpatient Briseida GEIGER [facility] [id number] Univers 15:30:00 15:59:48 [facility] 2021-06-28 2021-06-28 Office [facility] 1.2.001.868 [id number] Univers 15:30:00 15:59:48 Visit Otoniel ASKEW 350.1.13.10 i ty [facility] 4.2.7.2.[place] [phone] Mo dical [address] 2021-06-28 2021-06-28 Outpatient Briseida GEIGER [facility] [id number] Univers 15:30:00 15:59:48 [facility] 2021-06-28 2021-06-28 Outpatient Briseida GEIGER [facility] [id number] Univers 10:00:00 10:00[facility] 2021-06-28 2021-06-28 Outpatient Briseida GEIGER [facility] [id number] Univers 10:00:00 10:00:00 [facility] 2021-06-27 2021-06-27 OFFICE STLMLC STLMLC [id number] Co mmon 00:00:00 00:00:00 VISIT Ronnie WHEELER PT - CHI LEVEL 2 [facility] 2021-06-12 2021-06-12 Outpatient Briseida GEIGER [facility] [id number] Univers 10:30:00 10:30:00 [facility] 2021-06-11 2021-06-11 [facility] [id number] Univers 07:06:00 08:45:00 TYLER ity [facility] 2021-06-11 2021-06-11 [facility][1] 1.2.840.114 [id number] Univers 07:06:00 08:45:00 Encounter Tyler Bush [place] 350.1.13.10 ity of [place] 4[place] [id number] [address] 2021-06-11 2021-06-11 Surgery [facility] 1.2.664.005 [id number] [facility] 07:49:00 08:09:00 Tyler Bush [place] 350.1.13.10 ity of [place] 4.2.7.2.[place] [id number] [facility] [address] 2021-06-08 2021-06-08 [facility] [id number] Univers 08:45:00 08:45:00 TYLER ity [facility] 2021-06-06 2021-06-06 Yamileth [facility] 1.2.840.114 [id number] Univers 00:00:00 00:00:00 Otoniel [place] 350.1.13.10 i ty of [place] 4.[place].2.[place] [id number] Mo dical NAL [address] [place] [address] 2021-06-01 2021-06-01 Refill [facility] 1.2.725.679 [id number] Univers 00:00:00 00:00:00 Otoniel [place] 350.1.13.10 i ty of [place] 4.[place].2.[place] [id number] Mo dical NAL [address] [place] [address] 2021-05-31 2021-05-31 (INJ) STLMLC STLMLC [id number] Co mmon 00:00:00 00:00:00 Injection Spir it - [facility] 2021-05-30 2021-05-30 [facility] [id number] Univers 15:00:00 15:00:00 OTONIEL ity [facility] 2021-05-28 2021-05-28 Outpatient Briseida [facility] [id number] Univers 07:05:00 08:35:00 TYLER acharya [facility] 2021-05-28 2021-05-28 [facility][1] 1.2.840.114 [id number] Univers 07:05:00 08:35:00 Encounter Tyler PENGTON 350.1.13.10 ity of [facility] 4.2.7.2.[place] [id number] [facility] [address] 2021-05-28 2021-05-28 Surgery [facility] 1.2.992.224 [id number] Univers 07:49:00 08:09:00 Tyler Bush [place] 350.1.13.10 ity of [place] 4.2.[place].2.[place]ICAL [id number] [facility] [address] 2021-05-28 2021-05-28 Orders Doctor ANGLE 1.2.840.114 [id number] Univers 00:00:00 00:00:00 Only Unassigned, HECTOR 350.1.13.10 ity of [place] [facility] 4.2.7.2.686 João as [id number] [facility] [address] 2021-05-25 2021-05-25 Outpatient [facility] [id number] Univers 08:45:00 08:45:00 TYLER acharya [facility] 2021-05-24 2021-05-24 OFFICE STLC STLC [id number] Co mmon 00:00:00 00:00:00 VISIT Spirit ESTAB PT - CHI LEVEL 4 [facility] 2021-05-23 2021-05-23 Captain/Airline Pilot Candace, 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 [facility] 1.2.8 40.114 [id number] Univers 11:13:53 11:28:53 Visit Tyler Chang Dio JAMILAH 350.1.13.1 0 ity of [facility] 4.2.7.2.[place] [id number] Mo dical NAL [address] [facility] 2021-05-23 2021-05-23 Outpatient [facility] [id number] Univers 11:15:00 11:15:00 TYLER ity [facility] 2021-05-21 2021-05-21 Outpatient R BERNARDO [facility] [id number] Univers 11:45:00 11:45:00 TYLER ity [facility] 2021-05-21 2021-05-21 Orders Doctor ANGLE 1.2.840.114 [id number] Univers 00:00:00 00:00:00 Only Unassigned, HECTOR 350.1.13.10 ity of [place] [facility] 4.2.7.2.686 João as [phone] [facility] [address] 2021-05-09 2021-05-09 Outpatient Briseida RAYMONDBERNARDO [facility] [id number] Univers 09:30:10 23:59:00 TYLER ity [facility] 2021-05-09 2021-05-09 [facility] Bernardo, [facility] 1.2.840.114 [id number] Univers 09:30:10 23:59:00 Encounter Tyler ASKEW 350.1.13.10 ity of [place] 4.2.7.2.686 [facility] [id number] [facility] [address] 2021-05-09 2021-05-09 Outpatient Briseida CHANG [facility] [id number] Univers 00:00:00 00:00:00 TYLER ity [facility] 2021-05-09 2021-05-09 Orders Doctor [place] 1.2.840.114 [id number] Univers 00:00:00 00:00:00 Only Unassigned, HECTOR 350.1.13.10 ity of [place] [facility] 4.2.7.2.686 João as [phone] [facility] [address] 2021-05-09 2021-05-09 Case [facility] 1.2.150.035 [id number] Univers 00:00:00 00:00:00 Management Otoniel ASKEW 350.1.13.10 ity [facility] 4.2.[place] [id number] Mo dic[address] 2021-05-08 2021-05-08 Outpatient R FELY [facility] [id number] Univers 16:00:00 14:47:53 OTONIEL acharya [facility] 2021-05-08 2021-05-08 Outpatient R FELY [facility] [id number] Univers 16:00:00 14:47:53 OTONIEL acharya [facility] 2021-05-08 2021-05-08 [facility] [id number] Univers 14:16:31 14:47:53 Visit Otoniel LUCIO [id number] it y of [id number] [id number] [address] 2021-05-08 2021-05-08 [facility] [id number] Univers 13:30:00 13:30:00 SARA [facility] 2021-04-23 2021-04-23 ([place]) Nurse STLMLC STLMLC [id number] Common 00:00:00 00:00:00 Visit [facility] 2021-04-20 2021-04-20 [facility] [id number] Univers 00:00:00 00:00:00 Otoniel ASKEW [id number] i ty of [id number] [id number] Mo dical [address] 2021-04-16 2021-04-16 (TEL) STLMLC STLMLC [id number] Co mmon 00:00:00 00:00:00 [facility] 2021-04-11 2021-04-11 Outpatient R [facility] [id number] Univers 10:30:00 10:30:00 ity [facility] 2021-03-28 2021-03-28 [facility] Teddy Sweeney [facility] [id number] Univers 14:58:27 23:59:00 Encounter Genaro Askew [id number] [id number] [id number] [facility] [address] 2021-03-28 2021-03-28 [facility] [id number] Univers 13:28:14 14:39:38 Visit Otoniel Askew [id number] [id number] [id number] Mo dical nal [address] [place] [address] 2021-03-28 2021-03-28 [facility] [id number] Univers 13:30:00 13:30:[facility] 2021-03-28 Orders Doctor ANGLE [id number] Univers 00:00:00 00:00:00 Only Unassigned, HECTOR [id number] ity of [facility] 4.2.7.2.686 João as [phone] [facility] [address] [place] 2021-03-23 2021-03-23 OFFICE [facility] [id number] Co mmon 00:00:00 00:00:00 VISIT [facility] ESTAB PT - CHI LEVEL 2 [facility] 2021-03-22 2021-03-22 Outpatient [facility] [id number] Univers 11:00:00 11:00:00 [facility] 2021-03-22 2021-03-22 [facility]TEL[facility] [id number] Co mmon 00:00:00 00:00:00 [facility] 2021-03-21 2021-03-21 Telephone [facility] 1.2.840.114 [id number] Univers 00:00:00 00:00:00 Otoniel Jamilah 350.1.13.10 [place] [phone] Mo dical nal 134 [facility] 2021-03-20 2021-03-20 Captain/Airline Pilot Candace, 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 [facility] 1.2.8 40.114 [id number] Univers 09:38:10 09:53:10 Visit Otoniel Geiger 350.1.13.10 it[place] of [place] [phone] [facility] 353 [facility] 2021-03-20 2021-03-20 Outpatient R FELY [facility] [id number] Univers 09:30:00 09:30:00 OTONIEL acharya [facility] 2021-03-19 2021-03-19 Outpatient R FELY [facility] [id number] Univers 00:00:00 00:00:00 OTONIEL acharya [facility] 2021-03-19 2021-03-19 Outpatient R FELY [facility] [id number] Univers 00:00:00 00:00:00 OTONIEL [facility] 2021-03-19 2021-03-19 Telephone [facility] [place] 1.2.840.114 [id number] Univers 00:00:00 00:00:00 Otoniel Askew 350.1.13.10 [place] [phone] [facility] 134 [facility] 2021-03-16 2021-03-16 [facility] 1.2.840.114 [id number] Univers 00:00:00 00:00:00 Otoniel Lucio 350.1.13.10 it y of [place] [phone] [address] 2021-03-15 2021-03-15 Telephone [facility] [place] 1.2.840.114 [id number] Univers 00:00:00 00:00:00 Otoniel Askew 350.1.13.10 [place] [phone] [facility] 134 [facility] 2021-03-13 2021-03-13 [facility] 1.2.840.114 [id number] Univers 15:02:56 15:45:17 Visit Otoniel Lucio 350.1.13.10 it y [place] [phone] [facility] [address] 2021-03-13 2021-03-13 Outpatient Briseida GEIGER [facility] [id number] Univers 15:30:00 15:30:00 OTONIEL acharya [facility] 2021-03-08 2021-03-08 Orders Doctor ANGLE 1.2.840.114 [id number] Univers 00:00:00 00:00:00 Only Unassigned, HECTOR 350.1.13.10 ity of [place] [facility] 4.2.7.2.686 João as [phone] [address] 2021-03-08 2021-03-08 Orders Doctor [place] 1.2.840.114 [id number] Univers 00:00:00 00:00:00 Only Unassigned, HECTOR 350.1.13.10 ity of [place] [facility] 4.2.7.2.686 João as [phone] [place] [address] [place] 2021-02-22 2021-02-22 OFFICE STLMLC STLMLC [id number] Co mmon 00:00:00 00:00:00 VISIT Spirit ESTAB PT - CHI LEVEL 4 [facility] 2021-02-15 2021-02-15 OFFICE STLMLC STLMLC [id number] Co mmon 00:00:00 00:00:00 VISIT Spirit ESTAB PT - CHI LEVEL 1 [facility] 2021-02-12 2021-02-12 Outpatient Briseida AGUIRRE [facility] [id number] Univers 00:00:00 00:00:00 [facility]-08 2021-02-08 Outpatient Briseida AGUIRRE [facility] [id number] Univers 11:00:00 12:44:31 [facility] 2021-02-08 2021-02-08 Office Misty Aguirre [facility] 1.2.840.114 [id number] Univers 10:51:46 12:44:31 Visit Room, João Uro Procedure HEALTH 350.1. 13.10 ity of [place] 4.2.7.2.686 [facility] [phone] [facility] Primary & [address] [facility] 2021-02-08 2021-02-08 Outpatient Briseida AGUIRRE [facility] [id number] Univers 11:00:00 11:00:00 BILAL ity of [facility] 2021-02-08 2021-02-08 Orders Doctor ANGLE 1.2.840.114 [id number] Univers 00:00:00 00:00:00 Only Unassigned, HECTOR 350.1.13.10 ity of [place] [facility] 4.2.7.2.686 João as [phone] [place] [address] [address] 2021-02-06 2021-02-06 Outpatient Briseida [facility] [id number] Univers 15:15:00 17:01:55 BILAL ity of [facility] 2021-02-06 2021-02-06 Office [facility] [place] 1.2.840.114 [id number] Univers 14:34:08 17:01:55 Visit [facility] 350.1.13.10 it y of [place] 4.2.7.2.686 [facility] [phone] [facility] & [address] [facility] 2021-02-06 2021-02-06 Outpatient Briseida [facility] [id number] Univers 15:15:00 15:15:00 BILAL ity of [facility] 2021-01-25 2021-01-25 OFFICE STLC STLC [id number] Co mmon 00:00:00 00:00:00 VISIT Spirit ESTAB PT - CHI LEVEL 4 [facility] 2021-01-02 2021-01-02 Orders Doctor ANGLE 1.2.840.114 [id number] Univers 00:00:00 00:00:00 Only Unassigned, HECTOR 350.1.13.10 ity of [place] [facility] 4.2.7.2.686 João as [phone] [place] [address] [address] 2021-01-02 2021-01-02 OFFICE STLMLC STLMLC [id number] Co mmon 00:00:00 00:00:00 VISIT Spirit ESTAB PT - CHI LEVEL 1 [facility] 2021-01-02 2021-01-02 (TEL) STLMLC STLMLC [id number] Co mmon 00:00:00 00:00:00 [facility] 2021-01-01 2021-01-01 (TEL) STLMLC STLMLC [id number] Co mmon 00:00:00 00:00:00 [facility] 2021-01-01 2021-01-01 (TEL) STLMLC STLMLC [id number] Co mmon 00:00:00 00:00:00 [facility] 2020-12-28 2020-12-28 (TEL) STLMLC STLMLC [id number] Co mmon 00:00:00 00:00:00 [facility] 2020-12-27 2020-12-27 (TEL) STLMLC STLMLC [id number] Co mmon 00:00:00 00:00:00 [facility] 2020-12-26 2020-12-26 OFFICE STLMLC STLMLC [id number] Co mmon 00:00:00 00:00:00 VISIT EST Spir it PT LEVEL 3 [facility] 2020-12-21 2020-12-21 OFFICE STLMLC STLMLC [id number] Co mmon 00:00:00 00:00:00 VISIT [facility] PT - CHI LEVEL 1 [facility] 2020-12-20 2020-12-20 (TEL) STLMLC STLMLC [id number] Co mmon 00:00:00 00:00:00 [facility] 2020-12-08 2020-12-08 Orders Doctor ANGLE 1.2.840.114 [id number] Univers 00:00:00 00:00:00 Only Unassigned, HECTOR 350.1.13.10 ity of [place] [facility] 4.2.7.2.686 João as [phone] [place] [address] [address] 2020-12-05 2020-12-05 OFFICE STLMLC STLMLC [id number] Co mmon 00:00:00 00:00:00 VISIT [facility] PT - CHI LEVEL 1 [facility] 2020-12-04 2020-12-04 (TEL) STLMLC STLMLC [id number] Co mmon 00:00:00 00:00:00 [facility] 2020-10-30 2020-10-30 [facility][1] 1.2.840.114 [id number] Univers 07:18:00 08:57:00 Encounter Tyler Bush [place] 350.1.13.10 [place] [phone] [facility] [address] 2020-10-30 2020-10-30 Surgery [facility] 1.2.173.045 [id number] Univers 07:51:00 08:14:00 Tyler Pengton 350.1.13.10 it[place] of [place] [id number] [facility] [address] 2020-10-30 2020-10-30 Orders Doctor ANGLE 1.2.840.114 [id number] Univers 00:00:00 00:00:00 Only Unassigned, HECTOR 350.1.13.10 ity of [place] [facility] 4.2.7.2.686 João as [phone] [facility] [address] 2020-10-27 2020-10-27 Laboratory Only, Adc Test [facility] 1.2.840. 114 [id number] Univers 11:16:12 11:31:12 Only Tyler Chang 350.1.13.1 0 it[place] of [place]2.7.2.686 [place] [phone] [facility] [address] 2020-10-27 2020-10-27 Outpatient [facility] [id number] Univers 08:45:00 08:45:00 TYLER ity of [facility] 2020-10-27 2020-10-27 Orders Doctor ANGLE 1.2.840.114 [id number] Univers 00:00:00 00:00:00 Only Unassigned, HECTOR 350.1.13.10 ity of [place] [facility] 4.2.7.2.686 João as [phone] [place] [address] [address] 2020-10-26 2020-10-26 OFFICE STLMLC STLMLC [id number] Co mmon 00:00:00 00:00:00 VISIT Spirit ESTAB PT - CHI LEVEL 4 [facility] 2020-10-20 2020-10-20 (TEL) STLMLC STLMLC [id number] Co mmon 00:00:00 00:00:00 [facility] 2020-10-18 2020-10-18 (TEL) STLMLC STLMLC [id number] Co mmon 00:00:00 00:00:00 Spirit [facility] 2020-10-16 2020-10-16 [facility][1] 1.2.840.114 [id number] 06:39:00 08:43:00 Encounter Tyler Dio [place] 350.1.13.10 [place] 4.2.7.2.686 Surgical [phone] [place] [address] 2020-10-16 2020-10-16 [facility][1] 1.2.840.114 [id number] [facility] 06:39:00 08:43:00 Encounter Tyler S [place] 350.1.13.10 it[place] of [place] [phone] [facility] [address] [place] 2020-10-16 2020-10-16 [facility] 1.2.840.114 [id number] 07:51:00 08:13:00 [place] 350.1.13.10 [place] 4.2.7.2.686 Surgical [phone] [place] [address]20 2020-10-16 2020-10-16 [facility] 1.2.759.814 [id number] Univers 07:51:00 08:13:00 Tyler S [place] 350.1.13.10 it[place] of [place] [id number] [facility] [address] 2020-10-16 2020-10-16 Orders Doctor BARBOUR 1.2.840.114 [id number] 00:00:00 00:00:00 Only Unassigned, HECTOR 350.1.13.10 [facility] [facility] 4.2.7.2.686 [phone] 009 2020-10-16 2020-10-16 Orders Doctor ANGLE 1.2.840.114 [id number] Univers 00:00:00 00:00:00 Only Unassigned, HECTOR 350.1.13.10 ity of [place] [facility] 4.2.7.2.686 João as [phone] [facility] [address] 2020-10-13 2020-10-13 Outpatient R BERNARDO [facility] [id number] [facility] 10:15:00 10:15:00 TYLER ity of [facility] 2020-10-13 2020-10-13 Laboratory Only, [facility] 1.2.840.114 [id number] 09:49:03 10:04:03 Only Test [place] 350.1.13.10 [place] 4.2.7.2.686 [place] [id number] 353 2020-10-13 2020-10-13 Laboratory Only, [facility] Test [facility] 1.2.840. 114 [id number] [facility] 09:49:03 10:04:03 Only Tyler Chang S [place] 350.1.13.1 0 ity of [place] 4.2.7.2.686 [facility] [phone] [address] 2020-10-13 2020-10-13 Orders Doctor ANGLE 1.2.840.114 [id number] 00:00:00 00:00:00 Only Unassigned, HECTOR 350.1.13.10 [place] [facility] 4.2.7.2.686 [id number] 009 2020-10-13 2020-10-13 Orders Doctor ANGLE 1.2.840.114 [id number] Univers 00:00:00 00:00:00 Only Unassigned, HECTOR 350.1.13.10 ity of [place] [facility] 4.2.7.2.686 João as [phone] [facility] [address] 2020-10-05 2020-10-05 (TEL) [facility] [id number] Co mmon 00:00:00 00:00:00 Spirit [facility] 2020-10-03 2020-10-03 (TEL) [facility] [id number] Co mmon 00:00:00 00:00:00 [facility] 2020-10-02 2020-10-02 [facility][1] 1.2.840.114 [id number] 06:53:00 09:27:00 Encounter Tyler Bush [place] 350.1.13.10 [place] 4.2.7.2.686 Surgical [id number] [place] [address] 2020-10-02 2020-10-02 [facility][1] 1.2.840.114 [id number] Univers 06:53:00 09:27:00 Encounter Tyler Bush [place] 350.1.13.10 it[place] of [place]2.[place].2.[place] [phone] [facility] [address] [place] [address] 2020-10-02 2020-10-02 Surgery [facility] 1.2.840.114 [id number] 07:51:00 08:16:00 [place] 350.1.13.10 [place] 4.2.7.2.686 Surgical [phone] [place] [address] 2020-10-02 2020-10-02 [facility] 1.2.735.511 [id number] Univers 07:51:00 08:16:00 Tyler Bush [place] 350.1.13.10 ity of [place] [phone] [facility] [address] [place] 2020-10-02 2020-10-02 Orders Doctor ANGLE 1.2.840.114 [id number] 00:00:00 00:00:00 Only Unassigned, HCETOR 350.1.13.10 [facility] 4.2.7.2.686 [id number] 009 2020-10-02 2020-10-02 Orders Doctor ANGLE 1.2.840.114 [id number] Univers 00:00:00 00:00:00 Only Unassigned, HECTOR 350.1.13.10 ity of [place] [facility] 4.2.7.2.686 João as [phone] [facility] [address] 2020-09-29 2020-09-29 Laboratory Only, [facility] 1.2.840.114 [id number] 10:08:41 10:23:41 Only Test [place] 350.1.13.10 [place] 4.2.7.2.686 [place] [phone] [facility] 2020-09-29 2020-09-29 Laboratory Only, [facility] Test [facility] 1.2.840. 114 [id number] Univers 10:08:41 10:23:41 Only Tyler Chang 350.1.13.1 0 ity of [place] 4.2.7.2.686 [place] [phone] [address] 2020-09-29 2020-09-29 Outpatient R BERNARDO [facility] [id number] Univers 10:15:00 10:15:00 TYLER ity [facility] 2020-09-27 2020-09-27 Captain/Airline Pilot Candace, [facility] 1.2.840.114 [id number] 14:35:00 14:50:00 Visit Lab Main [place] 350.1.13.10 [place] 4.2.7.2.686 Professio [phone] [address] 2020-09-27 2020-09-27 Captain/Airline Pilot Candace, [facility] Lab Main [facility] 1.2.8 40.114 [id number] Univers 14:35:00 14:50:00 Visit Tyler Chang 350.1.13.1 0 ity of [place].2.[place] [phone] Mo dical [address] 2020-09-27 2020-09-27 Outpatient R [facility] [id number] Univers 14:45:00 14:45:00 ity [facility] 2020-09-27 2020-09-27 Orders Doctor [place] 1.2.840.114 [id number] 00:00:00 00:00:00 Only Unassigned, HECTOR 350.1.13.10 [place] [facility] 4.2.7.2.686 [id number] 009 2020-09-27 2020-09-27 Orders Doctor ANGLE 1.2.840.114 [id number] Univers 00:00:00 00:00:00 Only Unassigned, HECTOR 350.1.13.10 ity of [place] [facility] 4.2.7.2.686 João as [phone] [address] 2020-09-17 2020-09-17 Outpatient [facility] [id number] Univers 12:10:00 12:10:00 ity [facility] 2020-08-20 2020-08-20 Outpatient [facility] [id number] Univers 11:35:00 11:35:00 [facility] 2020-07-07 2020-07-07 Office [facility] 1.2.840.114 [id number] 10:30:00 10:45:00 Visit Angle Askew 350.1.13.10 [facility] 4.2.7.2.686 Professio [phone] [address] 2020-07-07 2020-07-07 Office [facility] 1.2.840.114 [id number] Univers 10:30:00 10:45:00 Visit Angle Askew 350.1.13.10 i ty of Evangelista Ramí[place]2.[place].2.[place] [phone] Mo dical [address] 2020-07-07 2020-07-07 [facility] [id number] Univers 10:30:00 10:30:00 ANGLE sergio [facility] 2020-06-27 2020-06-27 (TEL) STLMLC STLMLC [id number] Co mmon 00:00:00 00:00:00 [facility] 2020-06-14 2020-06-14 Outpatient R KARI [facility] [id number] Univers 11:00:00 11:00:00 TANG [facility] 2020-06-02 2020-06-02 Office [facility] 1.2.840.114 [id number] Univers 10:20:29 10:49:49 Visit Angle Askew 350.1.13.10 i ty of Evangelista Ramírez 4[place]2.[place].2.[place] [phone] Mo dical [address] 2020-06-02 2020-06-02 Outpatient Briseida [facility] [id number] Univers 10:30:00 10:30:00 ANGLE acharya [facility] 2020-05-29 2020-05-29 (TEL) STLMLC STLMLC [id number] Co mmon 00:00:00 00:00:00 Spirit [facility] 2020-05-24 2020-05-24 Outpatient Br[facility]ida [facility] [id number] Univers 10:00:00 10:00:00 [facility] 2020-05-22 2020-05-22 Orders Doctor ANGLE 1.2.840.114 [id number] Univers 00:00:00 00:00:00 Only Unassigned, HECTOR 350.1.13.10 [facility] 4.2.7.2.686 João as [phone] [address] 2020-05-17 2020-05-17 (TEL) STLMLC STLMLC [id number] Co mmon 00:00:00 00:00:00 Spirit [facility] 2020-05-16 2020-05-16 OFFICE STLMLC STLMLC [id number] Co mmon 00:00:00 00:00:00 VISIT Spirit ESTAB PT - CHI LEVEL 4 [facility] 2020-05-08 2020-05-08 Outpatient Briseida [facility] [id number] Univers 13:00:00 13:00:00 [facility] 2020-04-27 2020-04-27 OFFICE STLMLC STLMLC [id number] Co mmon 00:00:00 00:00:00 VISIT Spirit ESTAB PT - CHI LEVEL 4 [facility] 2020-04-26 2020-04-26 (TEL) STLMLC STLMLC [id number] Co mmon 00:00:00 00:00:00 [facility] 2020-04-13 2020-04-13 OFFICE STLMLC STLMLC [id number] Co mmon 00:00:00 00:00:00 VISIT Spirit ESTAB PT - CHI LEVEL 4 [facility] 2020-04-07 2020-04-07 Office [facility] 1.2.842.561 [id number] Univers 10:16:43 10:31:43 Visit Tang SNEEDTANY 350.1.13.10 i ty of [place].2.[place] [phone] [address] 2020-04-07 2020-04-07 Outpatient R KARI [facility] [id number] Univers 10:15:00 10:15:00 TANG torresergio [facility] 2020-04-06 2020-04-06 (TEL) STLMLC STLMLC [id number] Co mmon 00:00:00 00:00:00 Spirit [facility] 2020-03-30 2020-03-30 Outpatient Briseida CUMMINGS [facility] [id number] Univers 10:00:00 10:00:00 BENITEZ torresergio [facility] 2020-03-30 2020-03-30 OFFICE STLMLC STLMLC [id number] Co mmon 00:00:00 00:00:00 VISIT Spirit ESTAB PT - CHI LEVEL 2 [facility] 2020-03-28 2020-03-28 OFFICE STLMLC STLMLC [id number] Co mmon 00:00:00 00:00:00 VISIT EST Spir it PT LEVEL 3 - [facility] 2020-03-23 2020-03-23 (TEL) STLMLC STLMLC [id number] Co mmon 00:00:00 00:00:00 Spirit - [facility] 2020-03-16 2020-03-16 Outpatient Briseida PIERCE [facility] [id number] Univers 14:15:00 14:15:00 TANG [facility] 2020-03-16 2020-03-16 OFFICE STLMLC STLMLC [id number] Co mmon 00:00:00 00:00:00 VISIT Spirit ESTAB PT - CHI LEVEL 4 [facility] 2020-03-09 2020-03-09 Outpatient Briseida PIERCE [facility] [id number] Univers 10:30:00 10:30:00 TANG acharya [facility] 2020-03-06 2020-03-[address] [place] [address] 1.2.840.114 [id number] Univers 07:43:00 13:03:00 Encounter Tyler Askew 350.1.13.10 ity of [place] 4.2.7.2.686 [facility] Surgical [phone] [facility] [address] 2020-03-03 2020-03-03 Laboratory Only, Adc Test [facility] 1.2.840. 114 [id number] Univers 09:13:26 09:28:26 Only Jules Gordon 350.1.13.10 ity of [place] 4.2.7.2.686 [facility] [place] [phone] [facility] [address] 2020-03-03 2020-03-03 Outpatient R JULES GORDON [facility] [id number] Univers 09:00:00 09:00:00 ity of [facility] 2020-03-02 2020-03-02 Outpatient [facility] [id number] Common 16:00:00 16:00:[address] [facility] 2020-03-01 2020-03-01 Outpatient [facility] [id number] Common 16:58:00 16:58:[address] [facility] 2020-02-29 2020-02-29 Outpatient [facility] [id number] Common 09:32:00 09:32:[address] [facility] 2020-02-29 2020-02-29 Orders Doctor [place] 1.2.840.114 [id number] Univers 00:00:00 00:00:00 Only Unassigned, HECTOR 350.1.13.10 ity of [place] [facility] 4.2.7.2.686 João as [phone] [facility] [address] 2020-02-19 2020-02-19 Outpatient R [facility] [id number] Univers 12:20:00 12:20:00 ity of [facility] 2020-02-19 2020-02-19 Outpatient [facility] [id number] Common 11:43:00 11:43:[address] t [facility] [address] Spir [address] Road [facility] 2020-02-18 2020-02-18 Outpatient [facility] [id number] Common 14:30:00 14:30:00 t Specialty/U Sp rudy Specialty rology - [facility]I /Urology Clinic [facility] 2020-02-17 2020-02-17 Outpatient [facility] [id number] Common 11:30:00 11:30:00 t Specialty/U Sp rudy Specialty rology - [facility] /Urology Clinic [facility] 2020-02-10 2020-02-10 Outpatient R PRIYANK, [facility] [id number] Univers 17:00:00 17:00:00 WENDI ity [facility] 2020-02-07 2020-02-07 Outpatient R BALJEET, [facility] [id number] Univers 10:00:00 10:00:00 BRAEDEN ity [facility] 2020-01-13 2020-01-13 Outpatient [facility] [id number] Univers 09:45:00 09:45:00 CATALINA wellington f [facility] 2020-01-10 2020-01-10 [facility][1] 1.2.840.114 [id number] Univers 07:03:50 09:20:00 Encounter Tyler Askew 350.1.13.10 it[place] [phone] [facility] [address] 2020-01-10 2020-01-10 Orders Doctor ANGLE 1.2.840.114 [id number] Univers 00:00:00 00:00:00 Only Unassigned, HECTOR 350.1.13.10 ity of [place] [facility] 4.2.7.2.686 João as [phone] [facility] [address] 2020-01-07 2020-01-07 Laboratory Only, Adc Test [facility] 1.2.840. 114 [id number] Univers 08:46:30 09:01:30 Only Gilson Changt Dio Jamilah 350.1.13.1 0 it[place] of [place] 4.2.7.2.686 [place] [phone] [facility] [address] 2020-01-07 2020-01-07 Outpatient R BERNARDO [facility] [id number] Univers 08:30:00 08:30:00 TYLER ity [facility] 2020-01-07 2020-01-07 Orders Doctor ANGLE 1.2.840.114 [id number] Univers 00:00:00 00:00:00 Only Unassigned, HECTOR [id number] ity of [facility] 4.2.7.2.686 João as [phone] [address] 2019-12-30 2019-12-30 [facility] [id number] Univers 11:00:00 11:00:00 CATALINA acharya o f [facility] 2019-12-28 2019-12-28 Outpatient [facility] [id number] Univers 11:00:00 11:00:00 DENNYS acharya o f [facility] 2019-12-24 2019-12-24 Outpatient Yann [place] [id number] Common 09:32:00 09:32:00 goviral Spir it [facility] 2019-12-22 2019-12-22 Captain/Airline Pilot Candace, Tommy [facility] 1.2.8 [id number] [id number] Univers 13:50:17 14:05:17 Visit Tyler Chang Dio Jamil[facility]13.1 [facility] [id number] [phone] Mo dical [address] 2019-12-22 2019-12-22 [facility] [id number] Univers 14:00:00 14:00:00 TYLER ity [facility] 2019-12-22 2019-12-22 Orders Doctor BARBOUR [id number] Univers 00:00:00 00:00:00 Only Unassigned, HECTOR [id number] ity of [facility] [id number] João as [phone] [address] 2019-12-13 2019-12-13 Outpatient Yann [facility] [id number] Common 11:45:00 11:45:00 t [facility] it Road [facility] ED 2019-12-01 2019-12-01 [facility] [id number] Common 16:54:00 16:54:[address] [facility] ED 2019-11-25 2019-11-25 [facility] 30 [id number] Common 16:55:00 16:55:[address] [facility] ED 2019-11-22 2019-11-22 [facility] 30 [id number] Common 11:38:00 11:38:[address] [facility] ED 2019-11-19 2019-11-19 [facility] [id number] Common 16:25:00 16:25:00 t [facility] [address] [facility] ED 2019-11-19 2019-11-19 Outpatient Briseida P[facility]ER [facility] [id number] Univers 09:15:00 09:15:00 CATALINA donnelly [facility] 2019-11-18 2019-11-18 [facility] 30 [id number] Common 16:23:00 16:23:[address] [facility] ED 2019-11-18 2019-11-18 [facility] 30 [id number] Common 10:45:00 10:45:[address] [facility] ED 2019-11-08 2019-11-08 [facility] 30 [id number] Common 14:04:00 14:04:00 t [facility] [address] [facility] ED 2019-11-05 2019-11-05 [facility] 30 [id number] Common 14:36:00 14:36:00 t [facility] [address] Sp[address] [facility] ED 2019-11-01 2019-11-01 [facility] 30 [id number] Common 11:35:00 11:35:[address] [facility] ED 2019-10-27 2019-10-27 [facility] 30 [id number] Common 13:30:00 13:30:[address] [facility] ED 2019-10-26 2019-10-26 [facility] [id number] Common 08:59:00 08:59:[address] [facility] ED 2019-10-25 2019-10-25 [facility] 30 [id number] Common 08:37:00 08:37:[address] [facility] ED 2019-10-20 2019-10-20 Tele[facility] 1.2.840.114 [id number] Univers 00:00:00 00:00:00 Braeden Askew [id number] i ty [facility] [id number] [facility] dio [facility] [phone] Mo dical [address] 2019-10-14 2019-10-14 [facility] 30 [id number] Common 15:00:00 15:00:[address] [facility] ED 2019-10-12 2019-10-12 [facility] 30 [id number] Common 09:50:00 09:50:[address] [facility] ED 2019-10-07 2019-10-07 [facility] [id number] Univers 13:00:00 13:00:00 BRAEDEN ity [facility] 2019-10-05 2019-10-05 Yue Goodman .[id number] Univers 00:00:00 00:00:00 Jamari Young [id number] it y of [facility] [id number] [place] [phone] [address] 2019-10-04 2019-10-04 [facility] [id number] Univers 10:45:00 10:45:00 BRAEDEN ity [facility] 2019-10-04 2019-10-04 Telemedici [facility] 1.2.840.114 [id number] Univers 08:05:56 08:20:56 ne Visit Braeden Mcallen [id number] [id number] [phone] [address] 2019-10-04 2019-10-04 RefYue Carey [id number] Univers 00:00:00 00:00:00 Jamari Hector 350.1.13.10 it y of [facility] [id number] [place] [phone] [facility] [address] 2019-09-30 2019-09-30 Telephone [facility] 1.2.840.114 [id number] Univers 00:00:00 00:00:00 Braeden Mcallen [id number] i ty [id number] [phone] [address] 2019-09-28 2019-09-28 Telephone [facility] 1.2.840.114 [id number] Univers 00:00:00 00:00:00 [facility] [id number] it y of [id number] [place] [phone] [facility] Primary & [address] Specialty [facility] 2019-09-28 2019-09-28 Telephone [facility] 1.2.840.114 [id number] Univers 00:00:00 00:00:00 Braeden Mcallen [id number] i [id number] [phone] [address] 2019-09-27 2019-09-27 Telephone [facility] 1.2.840.114 [id number] Univers 00:00:00 00:00:00 Braeden Mcallen 350.1.13.10 i [id number] [phone] [address] 2019-09-23 2019-09-23 Emergency [facility] [id number] Univers 11:55:19 17:04:00 Umair Askew 350.1.13.10 i ty [place] [id number] [place] [phone] [facility] [address] 2019-09-23 2019-09-23 Emergency X [facility] ERT [id number] Univers 11:55:19 17:04:00 UMAIR ity of [facility] 2019-09-23 2019-09-23 [facility] [id number] Univers 06:35:00 11:37:00 Encounter Braeden Askew [id number] ity of [place] [id number] [facility] [phone] [facility] [address] [place] 2019-09-23 2019-09-23 Outpatient [facility] KIERAN [id number] Univers 06:35:00 11:37:00 BRAEDEN ity of [facility] 2019-09-23 2019-09-23 Anesthesia RaúlsunithaTang [facility] 1.2.840.11 [id number] Univers 07:37:00 09:11:00 Leatha Johnson [id number] ity of [place] [id number] [facility] [phone] [facility] [address] 2019-09-23 2019-09-23 Orders Doctor ANGLE 1.2.840.114 [id number] Univers 00:00:00 00:00:00 Only Unassigned, HECTOR 350.1.13.10 ity of [facility] 4.2.7.2.686 João as [phone] [facility] [address] 2019-09-23 2019-09-23 Telephone ANGLE Delong 1.2.840.114 [id number] Univers 00:00:00 00:00:00 Braeden HECTOR 350.1.13.10 it y of HOSPITAL 4.2.7.2.686 João as [phone] [facility] [address] 2019-09-20 2019-09-20 Telephone ANGLE Delong 1.2.840.114 [id number] Univers 00:00:00 00:00:00 Braeden HECTOR 350.1.13.10 it y of HOSPITAL [id number] João as [phone] [facility] [address] [place] 2019-09-19 2019-09-19 [facility]phone [facility] 1.2.840.114 [id number] Univers 00:00:00 00:00:00 Braeden Mcallen 350.1.13.10 i [id number] [phone] Mo dical nal [address] [facility] 2019-09-17 2019-09-17 [facility] [id number] Common 08:05:00 08:05:00 t [employer] [facility] it [employer] [facility] ED 2019-09-16 2019-09-16 [facility] [id number] Univers 06:36:00 11:50:00 Encounter Braedenurban Askew 350.1.13.10 it[place] of [id number] [phone] [facility] [address] 2019-09-16 2019-09-16 Outpatient R BALJEET [facility] KIERAN [id number] Univers 06:36:00 11:50:00 BRAEDEN ity of [facility] 2019-09-16 2019-09-16 Orders Doctor ANGLE 1.2.840.114 [id number] Univers 00:00:00 00:00:00 Only Unassigned, HECTOR 350.1.13.10 ity of [place] [facility] 4.2.7.2.686 João as [phone] [facility] [address] 2019-09-16 2019-09-16 Telephone ANGLE Delong 1.2.840.114 [id number] Univers 00:00:00 00:00:00 Braeden HECTOR 350.1.13.10 it y of [facility] 4.2.7.2.686 João as [phone] [facility] [address] [place] 2019-09-16 2019-09-16 Telephone [facility] 1.2.840.114 [id number] Univers 00:00:00 00:00:00 Braeden Pengton 350.1.13.10 i [place] [phone] Mo dical nal 204 [facility] 2019-09-15 2019-09-15 Telephone [facility] 1.2.840.114 [id number] Univers 00:00:00 00:00:00 Braeden Mcallen 350.1.13.10 i [id number] [phone] Mo dical nal 204 [facility] 2019-09-13 2019-09-13 Captain/Airline Pilot Candace, 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 [facility] 1.2.8 40.114 [id number] Univers 13:33:09 13:48:09 Visit Braeden Delongton 350.1.13.10 ity of [place].7.[place] [phone] [facility] nal 353 [facility] 2019-09-13 2019-09-13 Telemedici [facility] 1.2.840.114 [id number] Univers 08:41:39 08:56:39 ne Visit Braeden Askew 350.1.13.10 it[place] [phone] [facility] 204 [facility] 2019-09-13 2019-09-13 [facility] [id number] Univers 08:30:00 08:30:00 BRAEDEN ity of [facility] 2019-09-13 2019-09-13 [facility] 1.2.840.114 [id number] Univers 00:00:00 00:00:00 Surgery Livia Askew 350.1.13.10 it[place].2.[place] [phone] [facility] 377 [facility] 2019-09-10 2019-09-12 Outpatient X [facility] [id number] Univers 07:57:26 14:20:00 AMALIA acharya of [facility] [place] 2019-09-10 2019-09-12 Emergency Fawad Schofield 1.2.84 0.114 [id number] Univers 07:57:26 14:20:00 Zee Alonzo Hector 350.1.13.10 ity of Amalia Contreras [facility] 4.2.7.2.6 86 [place] [phone] [facility] [address] 2019-08-27 2019-08-27 [facility] [id number] Common 14:30:00 14:30:00 t Specialty/U Sp rudy Specialty rology - [facility] 2019-08-23 2019-08-23 Outpatient Briseida [facility] [id number] Univers 07:14:00 09:35:00 TYLER ity [facility] 2019-08-23 2019-08-23 [facility][1] 1.2.840.114 [id number] Univers 07:14:00 09:35:00 Encounter Tyler Askew 350.1.13.10 it[id number] [phone] [facility] [address] 2019-08-23 2019-08-23 Anesthesia Minerva Ba [facility] 1. 2.840.114 [id number] Univers 08:23:00 08:35:00 Stalin Schreiber 350.1.13.10 it[place] of [place].2.[place] [phone] [facility] [place] [address] 2019-08-23 2019-08-23 Outpatient [facility] [id number] Univers 07:14:00 07:14:00 TYLER ity of [facility] 2019-08-23 2019-08-23 Orders Doctor BARBOUR 1.2.840.114 [id number] Univers 00:00:00 00:00:00 Only Unassigned, HECTOR 350.1.13.10 ity of [place] [facility] 4.2.7.2.686 João as [phone] [facility] [address] 2019-08-19 2019-08-19 [facility] [id number] Common 11:00:00 11:00:[address] [facility] ED 2019-08-19 2019-08-19 Orders Doctor ANGLE 1.2.840.114 [id number] Univers 00:00:00 00:00:00 Only Unassigned, HECTOR 350.1.13.10 ity of [facility] 4.2.7.2.686 João as [phone] [place] [address] [place] 2019-08-05 2019-08-05 [facility] [id number] Common 09:15:00 09:15:00 [facility] Tess[facility] it Drive [facility] ED 2019-08-03 2019-08-03 [facility] [id number] Common 14:40:00 14:40:00 [facility] it Road [facility] ED 2019-08-02 2019-08-02 Outpatient Briseida [facility] KIERAN [id number] Univers 07:03:40 09:10:00 TYLER ity [facility] 2019-08-02 2019-08-02 [facility][1] 1.2.840.114 [id number] Univers 07:03:40 09:10:00 Encounter Tyler Askew 350.1.13.10 it[place] of [place].2.686 [place] [phone] [place] [address] Branch 2019-08-02 2019-08-02 Orders Doctor ANGLE 1.2.840.114 [id number] Univers 00:00:00 00:00:00 Only Unassigned, HECTOR 350.1.13.10 ity of [facility] 4.2.7.2.686 João as [phone] [facility] [address] 2019-07-29 2019-07-29 [facility] [id number] Common 13:23:00 13:23:00 [employer] [facility] it Drive [facility] ED 2019-07-28 2019-07-28 Captain/Airline Pilot Candace, 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 [facility] 1.2.8 40.114 [id number] Univers 14:09:44 14:24:44 Visit Tyler Chang 350.1.13.1 0 it[place] of [place].2.[place] [phone] Mo dical [facility] 2019-07-28 2019-07-28 Orders Doctor ANGLE 1.2.840.114 [id number] Univers 00:00:00 00:00:00 Only Unassigned, HECTOR 350.1.13.10 ity of [facility] 4.2.7.2.686 João as [phone] [address] 2019-07-27 2019-07-27 Orders Doctor ANGLE 1.2.840.114 [id number] Univers 00:00:00 00:00:00 Only Unassigned, HECTOR 350.1.13.10 ity of [facility] 4.2.7.2.686 João as [phone] [address] 2019-07-19 2019-07-19 [facility] [id number] Common 13:59:00 13:59:[address] [facility] ED 2019-07-14 2019-07-14 [facility] [id number] Common 13:18:00 13:18:[address] [facility] ED 2019-07-06 2019-07-06 [facility] [id number] Common 10:00:00 10:00:[address] [facility] ED 2019-05-17 2019-05-17 [facility] [id number] Common 13:30:00 13:30:[address] [facility] ED 2019-03-30 2019-03-30 [facility] [id number] Common 15:00:00 15:00:00 t Specialty/U Sp rudy Specialty rology - [facility] 2019-03-23 2019-03-23 [facility] [id number] Common 08:47:00 08:47:00 t Specialty/U Sp rudy Specialty rology - [facility] 2019-03-22 2019-03-22 [facility] [id number] Common 16:57:00 16:57:[address] [facility] ED 2019-03-17 2019-03-17 [facility] [place] [id number] Common 09:45:00 09:45:00 t [facility] Spir it Road [facility] ED 2019-03-04 2019-03-04 Outpatient Yann Lernert 27 [id number] Common 11:00:00 11:00:00 t Specialty/U Sp rudy Specialty rology - [facility] 2019-03-01 2019-03-01 Outpatient [facility] [id number] Common 11:00:00 11:00:[address] [facility] ED 2019-02-23 2019-02-23 Outpatient Yann Lernert [id number] Common 13:15:00 13:15:[address] [facility] ED 2019-02-17 2019-02-17 Prep For [facility] 1.2.840.114 [id number] [facility] 00:00:00 00:00:00 Surgery Livia Askew 350.1.13.10 ity [facility] [place].2.7.2.[place] [phone] Mo dical nal 377 [facility] 2019-02-16 2019-02-16 Office [facility] [phone] [id number] [facility] 15:16:30 15:46:30 Visit Ashley Askew 350.1.13.10 i ty [facility] 4.2.7.2.[place] [phone] Mo dical nal 377 [facility] 2019-02-15 2019-02-15 Outpatient Yann Lernert [id number] Common 09:54:00 09:54:00 t Specialty/U Sp rudy Specialty rology - [facility] 2019-02-08 2019-02-08 Outpatient Yann Lernert [id number] Common 13:00:00 13:00:00 t Specialty/U Sp rudy Specialty rology - [facility] 2019-02-01 2019-02-01 [facility] [id number] Common 14:15:00 14:15:00 t Specialty/U Sp rudy Specialty rology - [facility] /[facility] Clinic [facility] 2019-01-27 2019-01-27 [facility] [id number] Common 10:00:00 10:00:[address] [facility] ED 2019-01-15 2019-01-15 Office [facility] 1.2.840.114 [id number] Univers 09:51:11 10:51:11 Visit Catalina Askew 350.1.13.10 [place] 4.2.7.2.686 Nicho Lanza [phone] Mo dic[address] 2018-12-08 2018-12-08 [facility] [id number] Common 13:00:00 13:00:[address] [facility] ED 2018-12-07 2018-12-07 [facility] [id number] Common 16:17:00 16:17:[address] [facility] ED 2018-12-03 2018-12-03 [facility] [id number] Common 09:15:00 09:15:[address] [facility] ED 2018-10-19 2018-10-19 [facility] [id number] Common 16:30:00 16:30:[address] [facility] ED 2018-10-01 2018-10-01 [facility] [id number] Common 13:52:00 13:52:[address] [facility] ED 2018-09-14 2018-09-14 [facility] [id number] Common 08:34:00 08:34:[address] [facility] ED 2018-09-10 2018-09-10 [facility] [id number] Common 14:45:00 14:45:[address] [facility] ED 2018-08-26 2018-08-26 [facility] [id number] Common 16:26:00 16:26:[address] [facility] ED 2018-08-25 2018-08-25 [facility] [id number] Common 10:00:00 10:00:[address] [facility] ED 2018-08-19 2018-08-19 Out[facility] [id number] Common 08:22:00 08:22:[address] [facility] ED 2018-07-16 2018-07-16 [facility] [id number] Common 13:00:00 13:00:[address] [facility] ED 2018-03-25 2018-03-25 Out[facility] [id number] Common 10:15:00 10:15:[address] [facility] ED 2018-02-03 2018-02-03 Out[facility] [id number] Common 09:02:00 09:02:[address] [facility] ED 2018-01-23 2018-01-23 Out[facility] [id number] Common 10:00:00 10:00:[address] [facility] ED 2017-12-23 2017-12-23 Out[facility] [id number] Common 10:30:00 10:30:[address] [facility] ED 2017-12-16 2017-12-16 Out[facility] [id number] Common 15:15:00 15:15:[address] [facility] ED 2017-11-04 2017-11-04 Out[facility] [id number] Common 10:00:00 10:00:[address] [facility] 2016-05-14 2016-05-14 Outpatient Raju_P MMG MMG [id number] [place] 03:16:00 03:16:00 08[facility] 2014-08-22 2014-08-22 Outpatient O KELLIE CHANG KELLEN [id number] Univers 12:43:07 23:00:00 TYLER acharya [facility] Results Test Description Test Time Test Comments Results Result Comments Source POCT GLUCOSE (AUTOMATED) 2022-01-21 12:01:12 Test Item Value Reference Range Interpretation Comme nts POCT GLU (test code = 9593401792) 82 mg/dL 70-110 Lab Interpretation (test code = 80744-6) [facility]21 12:01:12 Test Item Value Reference Range Interpretation Comments POCT GLU (test code = 1211061030) 82 mg/dL 70-110 Lab Interpretation (test code = Normal 00963-4) [facility] >30DAYS)2022-01-21 11:50:00 Test Item Value Reference Range Interpretation Comments POCT Glu (age>30days) (test code = 82 mg/dL 70-110 3342) [facility](AGE >30DAYS)2022-01-21 11:50:00 Test Item Value Reference Range Interpretation Comments POCT Glu (age>30days) (test code = 82 mg/dL 70-110 3342) [facility] AND CHLAMYDIA, AMPLIFIED, [id number] 00:00:00 Test Item Value Reference Range Interpretation Comments GONORRHEA, NAAT (test code = 42195) NEGATIVE CHLAMYDIA, NAAT (test code = 14626) NEGATIVE GC AND CHLAMYDIA, AMPLIFIED, [id number] 00:00:00 Test Item Value Reference Range Interpretation Comments GONORRHEA, NAAT (test code = 83448) NEGATIVE CHLAMYDIA, NAAT (test code = 84686) NEGATIVE CBC W/AUTO [id number] 00:00:00 Test Item Value Reference Range Interpretation Comments WBC (test code = 1001) 6.3 K/UL RBC (test code = 1002) 4.51 M/UL HEMOGLOBIN (test code = 1003) 13.2 G/DL HEMATOCRIT (test code = 1004) 39.1 % MCV (test code = 1005) 86.7 fL MCH (test code = 1006) 29.3 PG MCHC (test code = 1007) 33.8 G/DL RDW (test code = 1038) 15.7 % NEUTROPHILS (test code = 1008) 47.2 % LYMPHOCYTES (test code = 1010) 45.0 % MONOCYTES (test code = 1011) 5.8 % EOSINOPHILS (test code = 1012) 1.3 % BASOPHILS (test code = 1013) 0.5 % IMMATURE GRANULOCYTES (test 0.2 % code = 1036) NUCLEATED RBCS (test code = 0.0 /100WBC'S 1065) PLATELET COUNT (test code = 217 K/UL 1015) ABSOLUTE NEUTROPHILS (test code 2.99 K/UL = 1066) ABSOLUTE LYMPHOCYTES (test code 2.85 K/UL = 1067) ABSOLUTE MONOCYTES (test code = 0.37 K/UL 1068) ABSOLUTE EOSINOPHILS (test code 0.08 K/UL = 1040) ABSOLUTE BASOPHILS (test code = 0.03 K/UL 1069) ABS IMMATURE GRANULOCYTES (test 0.01 K/UL code = 1020) ABS NUCLEATED RBCS (test code = 0.00 K/UL 02601) CBC W/AUTO [id number] 00:00:00 Test Item Value Reference Range Interpretation Comments WBC (test code = 1001) 6.3 K/UL RBC (test code = 1002) 4.51 M/UL HEMOGLOBIN (test code = 1003) 13.2 G/DL HEMATOCRIT (test code = 1004) 39.1 % MCV (test code = 1005) 86.7 fL MCH (test code = 1006) 29.3 PG MCHC (test code = 1007) 33.8 G/DL RDW (test code = 1038) 15.7 % NEUTROPHILS (test code = 1008) 47.2 % LYMPHOCYTES (test code = 1010) 45.0 % MONOCYTES (test code = 1011) 5.8 % EOSINOPHILS (test code = 1012) 1.3 % BASOPHILS (test code = 1013) 0.5 % IMMATURE GRANULOCYTES (test 0.2 % code = 1036) NUCLEATED RBCS (test code = 0.0 /100WBC'S 1065) PLATELET COUNT (test code = 217 K/UL 1015) ABSOLUTE NEUTROPHILS (test code 2.99 K/UL = 1066) ABSOLUTE LYMPHOCYTES (test code 2.85 K/UL = 1067) ABSOLUTE MONOCYTES (test code = 0.37 K/UL 1068) ABSOLUTE EOSINOPHILS (test code 0.08 K/UL = 1040) ABSOLUTE BASOPHILS (test code = 0.03 K/UL 1069) ABS IMMATURE GRANULOCYTES (test 0.01 K/UL code = 1020) ABS NUCLEATED RBCS (test code = 0.00 K/UL 13258) CBC W/AUTO [id number] 00:00:00 Test Item Value Reference Range Interpretation Comments WBC (test code = 1001) 6.3 K/UL RBC (test code = 1002) 4.51 M/UL HEMOGLOBIN (test code = 1003) 13.2 G/DL HEMATOCRIT (test code = 1004) 39.1 % MCV (test code = 1005) 86.7 fL MCH (test code = 1006) 29.3 PG MCHC (test code = 1007) 33.8 G/DL RDW (test code = 1038) 15.7 % NEUTROPHILS (test code = 1008) 47.2 % LYMPHOCYTES (test code = 1010) 45.0 % MONOCYTES (test code = 1011) 5.8 % EOSINOPHILS (test code = 1012) 1.3 % BASOPHILS (test code = 1013) 0.5 % IMMATURE GRANULOCYTES (test 0.2 % code = 1036) NUCLEATED RBCS (test code = 0.0 /100WBC'S 1065) PLATELET COUNT (test code = 217 K/UL 1015) ABSOLUTE NEUTROPHILS (test code 2.99 K/UL = 1066) ABSOLUTE LYMPHOCYTES (test code 2.85 K/UL = 1067) ABSOLUTE MONOCYTES (test code = 0.37 K/UL 1068) ABSOLUTE EOSINOPHILS (test code 0.08 K/UL = 1040) ABSOLUTE BASOPHILS (test code = 0.03 K/UL 1069) ABS IMMATURE GRANULOCYTES (test 0.01 K/UL code = 1020) ABS NUCLEATED RBCS (test code = 0.00 K/UL 34611) HIV AB/AG COMBO RFLX [id number] 00:00:00 Test Item Value Reference Range Interpretation Comments HIV 1/2 4TH GEN, RFLX CONF (test NON-REACTIVE code = 3514) VAGINAL PATHOGENS DNA [id number] 00:00:00 Test Item Value Reference Range Interpretation Comments THUY SPECIES (test code = ) NEGATIVE G. VAGINALIS (test code = 92662) POSITIVE T. VAGINALIS (test code = ) NEGATIVE HIV AB/AG COMBO RFLX [id number] 00:00:00 Test Item Value Reference Range Interpretation Comments HIV 1/2 4TH GEN, RFLX CONF (test NON-REACTIVE code = 3513) VAGINAL PATHOGENS DNA [id number] 00:00:00 Test Item Value Reference Range Interpretation Comments THUY SPECIES (test code = ) NEGATIVE G. VAGINALIS (test code = 19305) POSITIVE T. VAGINALIS (test code = ) NEGATIVE [id number] 00:00:00 Test Item Value Reference Range Interpretation Comments RPR RESULT (test code = NON-REACTIVE 3501) RPR TITER (test code = 3500) NOT INDIC. TITER [id number] 00:00:00 Test Item Value Reference Range Interpretation Comments RPR RESULT (test code = NON-REACTIVE 3501) RPR TITER (test code = 3500) NOT INDIC. TITER [id number] 00:00:00 Test Item Value Reference Range Interpretation Comments RPR RESULT (test code = NON-REACTIVE 3501) RPR TITER (test code = 3500) NOT INDIC. TITER [id number] 00:00:00 Test Item Value Reference Range Interpretation Comments TSH, THIRD GENERATION (test code 1.090 UIU/ML = 2821) [id number] 00:00:00 Test Item Value Reference Range Interpretation Comments TSH, THIRD GENERATION (test code 1.090 UIU/ML = 2821) [id number] 00:00:00 Test Item Value Reference Range Interpretation Comments TSH, THIRD GENERATION (test code 1.090 UIU/ML = 2821) CULTURE, [id number] 00:00:00 Test Item Value Reference Range Interpretation Comments CULTURE, URINE (test SPECIMEN NUMBER: code = 26701) [id number] CULTURE, [id number] 00:00:00 Test Item Value Reference Range Interpretation Comments CULTURE, URINE (test SPECIMEN NUMBER: code = 08571) [id number] VAGINAL PATHOGENS DNA [id number] 00:00:00 Test Item Value Reference Range Interpretation Comments THUY SPECIES (test code = ) NEGATIVE G. VAGINALIS (test code = ) POSITIVE T. VAGINALIS (test code = ) NEGATIVE VAGINAL PATHOGENS DNA [id number] 00:00:00 Test Item Value Reference Range Interpretation Comments THUY SPECIES (test code = ) NEGATIVE G. VAGINALIS (test code = ) POSITIVE T. VAGINALIS (test code = ) NEGATIVE LIPID PROFILE (CORONARY RISK)[id number] 08:02:00 Test Item Value Reference Range Interpretation Comments TRIGLYCERIDES (test 194 MG/DL TRIGLYCE RIDES code = TRIG) REFERENCE RANGE:Normal: < 150 mg/dLBorderline High: 150-199 mg/dLHi gh: 200-499 mg/dLVe ry High: >=500 mg/ dL CHOLESTEROL (test code 206 MG/DL <200 = CHOL) HDL CHOLESTEROL (test 59 MG/DL 40-59 N code = HDL) LIPOPROTEIN LDL (test 116 MG/DL 0-99 H OPTIM AL.........<100 code = LDL) mg/dLNEAR OPTIMAL/ABOVE OPTIMAL........ .100-12 9 mg/dL BORDERL INE HIGH.........13 0-159 mg/dL HIGH.........16 0-189 mg/dL VERY HIGH.........>/ = 190 mg/dL [id number] 08:02:00 Test Item Value Reference Range Interpretation [...] LDL (test MG/DL 0-99 code = LDL) [id number] 07:51:00 Test Item Value Reference Range Interpretation Comments MAGNESIUM (test code = MAG) 2.0 MG/DL 1.6-2.3 N PROTHROMBIN [id number] 07:37:00 Test Item Value Reference Range Interpretation Comments PROTHROMBIN TIME 10.2 SECONDS 9.6-11.6 N PATIENT (test code = PTP) INTERNATIONAL NORMAL 1.0 0.8-1.1 N The INR is to be RATIO (test code = used only for INR) monitoring oral anticoagulantth erap y. INDICATION INR VALUE ---- ---- ---- -------1. Prophylaxis, de ep venous thrombos is, including high risk surgery. 2.0 - 3.0 2. Prophylaxis, deep venous thrombosis, hip surgery, treatm ent for deep venous thrombosis or pulmonary prevention of systemic emboli sm in patients wit h valvular heart disease, atrial fibrillation, tissue heart va lve, or acute myocar dial infarction. 2.0 - 3.0 3. Civil Lawyer al prosthesis hear t valves, recurre nt systemic emboli sm. 3.0 - 4.5 PTT [id number] 07:37:00 Test Item Value Reference Range Interpretation Comments PTT ACTIVATED (test code = APTT) 26.7 SECONDS 22.0-33.0 N [id number] 01:26:00 Test Item Value Reference Range Interpretation Comments TROPONIN-I (test code = TROPI) < 0.012 NG/ML 0.012-0.033 L HEPATIC FUNCTION [id number] 18:44:00 Test Item Value Reference Range Interpretation [...] 77 UNITS/L 38-126 N ALKP) BASIC METABOLIC [id number] 18:15:00 Test Item Value Reference Range Interpretation [...] code = 8.9 MG/DL 8.4-10.2 N CA) [id number] 18:15:00 Test Item Value Reference Range Interpretation Comments TROPONIN-I (test code = TROPI) < 0.012 NG/ML 0.012-0.033 L BASIC METABOLIC [id number] 18:03:00 Test Item Value Reference Range Interpretation [...] code = 8.9 MG/DL 8.4-10.2 N CA) [id number] 18:03:00 Test Item Value Reference Range Interpretation Comments TROPONIN-I (test code = TROPI) NG/ML 0.0-0.045 CBC W/O [id number] 17:39:00 Test Item Value Reference Range Interpretation [...] code = 0.0 K/mm3 0.0-0.1 N NRBC#) CBC W/AUTO [id number] 00:00:00 Test Item Value Reference Range Interpretation Comments WBC (test code = 1001) 5.1 K/UL RBC (test code = 1002) 4.33 M/UL HEMOGLOBIN (test code = 1003) 13.7 G/DL HEMATOCRIT (test code = 1004) 41.6 % MCV (test code = 1005) 96.1 fL MCH (test code = 1006) 31.6 PG MCHC (test code = 1007) 32.9 G/DL RDW (test code = 1038) 12.1 % NEUTROPHILS (test code = 1008) 49.1 % LYMPHOCYTES (test code = 1010) 46.2 % MONOCYTES (test code = 1011) 3.9 % EOSINOPHILS (test code = 1012) 0.6 % BASOPHILS (test code = 1013) 0.2 % PLATELET COUNT (test code = 1015) 170 K/UL CBC W/AUTO [id number] 00:00:00 Test Item Value Reference Range Interpretation Comments WBC (test code = 1001) 5.1 K/UL RBC (test code = 1002) 4.33 M/UL HEMOGLOBIN (test code = 1003) 13.7 G/DL HEMATOCRIT (test code = 1004) 41.6 % MCV (test code = 1005) 96.1 fL MCH (test code = 1006) 31.6 PG MCHC (test code = 1007) 32.9 G/DL RDW (test code = 1038) 12.1 % NEUTROPHILS (test code = 1008) 49.1 % LYMPHOCYTES (test code = 1010) 46.2 % MONOCYTES (test code = 1011) 3.9 % EOSINOPHILS (test code = 1012) 0.6 % BASOPHILS (test code = 1013) 0.2 % PLATELET COUNT (test code = 1015) 170 K/UL CBC W/AUTO [id number] 00:00:00 Test Item Value Reference Range Interpretation Comments WBC (test code = 1001) 5.1 K/UL RBC (test code = 1002) 4.33 M/UL HEMOGLOBIN (test code = 1003) 13.7 G/DL HEMATOCRIT (test code = 1004) 41.6 % MCV (test code = 1005) 96.1 fL MCH (test code = 1006) 31.6 PG MCHC (test code = 1007) 32.9 G/DL RDW (test code = 1038) 12.1 % NEUTROPHILS (test code = 1008) 49.1 % LYMPHOCYTES (test code = 1010) 46.2 % MONOCYTES (test code = 1011) 3.9 % EOSINOPHILS (test code = 1012) 0.6 % BASOPHILS (test code = 1013) 0.2 % PLATELET COUNT (test code = 1015) 170 K/UL HEMOGLOBIN [id number] 00:00:00 Test Item Value Reference Range Interpretation Comments HEMOGLOBIN A1c (test code = 01681) 5.2 % HEMOGLOBIN [id number] 00:00:00 Test Item Value Reference Range Interpretation Comments HEMOGLOBIN A1c (test code = 86946) 5.2 % HEMOGLOBIN [id number] 00:00:00 Test Item Value Reference Range Interpretation Comments HEMOGLOBIN A1c (test code = 29660) 5.2 % THYROID II PROFILE (T3U, T4, T7, TSH)2016-07-11 00:00:00 Test Item Value Reference Range Interpretation Comments T3 UPTAKE (test code = 2817) 27.5 % T4 (THYROXINE) (test code = 2819) 7.1 UG/DL CALCULATED T7 (FTI) (test code = 1.95 2820) TSH (test code = 2821) 1.5 UIU/ML THYROID II PROFILE (T3U, T4, T7, TSH)2016-07-11 00:00:00 Test Item Value Reference Range Interpretation Comments T3 UPTAKE (test code = 2817) 27.5 % T4 (THYROXINE) (test code = 2819) 7.1 UG/DL CALCULATED T7 (FTI) (test code = 1.95 2820) TSH (test code = 2821) 1.5 UIU/ML VITAMIN D, 25 [id number] 00:00:00 Test Item Value Reference Range Interpretation Comments VITAMIN D, 25 OH (test code = 4958) 8 NG/ML VITAMIN D, 25 [id number] 00:00:00 Test Item Value Reference Range Interpretation Comments VITAMIN D, 25 OH (test code = 4958) 8 NG/ML VAGINAL PATHOGENS DNA PANEL [ADDED]2016-07-11 00:00:00 Test Item Value Reference Range Interpretation Comments THUY SPECIES (test code = ) NEGATIVE G. VAGINALIS (test code = ) NEGATIVE T. VAGINALIS (test code = ) NEGATIVE VAGINAL PATHOGENS DNA PANEL [ADDED]2016-07-11 00:00:00 Test Item Value Reference Range Interpretation Comments THUY SPECIES (test code = ) NEGATIVE G. VAGINALIS (test code = ) NEGATIVE T. VAGINALIS (test code = 58846) NEGATIVE COMPREHENSIVE METABOLIC [id number] 00:00:00 Test Item Value Reference Range Interpretation Comments GLUCOSE (test code = 2217) 81 MG/DL BUN (test code = 2208) 14 MG/DL CREATININE (test code = 2214) 0.76 MG/DL eGFR AMER. (test code 100 ML/MIN/1.73 = 12752) eGFR NON- AMER. (test 86 ML/MIN/1.73 code = 76027) CALC BUN/CREAT (test code = 18 RATIO 2235) SODIUM (test code = 2231) 143 MEQ/L POTASSIUM (test code = 2228) 3.8 MEQ/L CHLORIDE (test code = 2215) 103 MEQ/L CARBON DIOXIDE (test code = 22 MEQ/L 220) CALCIUM (test code = 2209) 9.3 MG/DL PROTEIN, TOTAL (test code = 7.2 G/DL 2228) ALBUMIN (test code = 2201) 4.6 G/DL CALC GLOBULIN (test code = 2.6 G/DL 2240) CALC A/G RATIO (test code = 1.8 RATIO 2234) BILIRUBIN, TOTAL (test code = 1.3 MG/DL 2206) ALKALINE PHOSPHATASE (test 82 U/L code = 2204) AST (test code = 2218) 16 U/L ALT (test code = 2219) 12 U/L COMPREHENSIVE METABOLIC [id number] 00:00:00 Test Item Value Reference Range Interpretation Comments GLUCOSE (test code = 2217) 81 MG/DL BUN (test code = 2208) 14 MG/DL CREATININE (test code = 2214) 0.76 MG/DL eGFR AMER. (test code 100 ML/MIN/1.73 = 57268) eGFR NON- AMER. (test 86 ML/MIN/1.73 code = 65488) CALC BUN/CREAT (test code = 18 RATIO 2235) SODIUM (test code = 2231) 143 MEQ/L POTASSIUM (test code = 2228) 3.8 MEQ/L CHLORIDE (test code = 2215) 103 MEQ/L CARBON DIOXIDE (test code = 22 MEQ/L 220) CALCIUM (test code = 2209) 9.3 MG/DL PROTEIN, TOTAL (test code = 7.2 G/DL 2228) ALBUMIN (test code = 2201) 4.6 G/DL CALC GLOBULIN (test code = 2.6 G/DL 2240) CALC A/G RATIO (test code = 1.8 RATIO 2234) BILIRUBIN, TOTAL (test code = 1.3 MG/DL 2206) ALKALINE PHOSPHATASE (test 82 U/L code = 2204) AST (test code = 2218) 16 U/L ALT (test code = 2219) 12 U/L LIPID [id number] 00:00:00 Test Item Value Reference Range Interpretation Comments CHOLESTEROL (test code = 2210) 189 MG/DL TRIGLYCERIDES (test code = 2232) 148 MG/DL HDL CHOLESTEROL (test code = 2220) 70 MG/DL CALC LDL CHOL (test code = 2237) 89 MG/DL RISK RATIO LDL/HDL (test code = 1.28 RATIO 2238) LIPID [id number] 00:00:00 Test Item Value Reference Range Interpretation Comments CHOLESTEROL (test code = 2210) 189 MG/DL TRIGLYCERIDES (test code = 2232) 148 MG/DL HDL CHOLESTEROL (test code = 2220) 70 MG/DL CALC LDL CHOL (test code = 2237) 89 MG/DL RISK RATIO LDL/HDL (test code = 1.28 RATIO 2238) HEMOGLOBIN [id number] 00:00:00 Test Item Value Reference Range Interpretation Comments HEMOGLOBIN A1c (test code = 30192) 5.7 % HEMOGLOBIN [id number] 00:00:00 Test Item Value Reference Range Interpretation Comments HEMOGLOBIN A1c (test code = 12747) 5.7 % HEMOGLOBIN [id number] 00:00:00 Test Item Value Reference Range Interpretation Comments HEMOGLOBIN A1c (test code = 23099) 5.7 % COMPREHENSIVE METABOLIC [id number] 00:00:00 Test Item Value Reference Range Interpretation Comments GLUCOSE (test code = 2217) 90 MG/DL BUN (test code = 2208) 19 MG/DL CREATININE (test code = 2214) 0.75 MG/DL eGFR AMER. (test code 101 ML/MIN/1.73 = 30570) eGFR NON- AMER. (test 87 ML/MIN/1.73 code = 97811) CALC BUN/CREAT (test code = 25 RATIO 2235) SODIUM (test code = 2231) 143 MEQ/L POTASSIUM (test code = 2228) 3.8 MEQ/L CHLORIDE (test code = 2215) 106 MEQ/L CARBON DIOXIDE (test code = 20 MEQ/L 220) CALCIUM (test code = 2209) 9.0 MG/DL PROTEIN, TOTAL (test code = 6.7 G/DL 2228) ALBUMIN (test code = 2201) 4.3 G/DL CALC GLOBULIN (test code = 2.4 G/DL 2240) CALC A/G RATIO (test code = 1.8 RATIO 2234) BILIRUBIN, TOTAL (test code = 1.1 MG/DL 2206) ALKALINE PHOSPHATASE (test 87 U/L code = 2204) AST (test code = 2218) 18 U/L ALT (test code = 2219) 15 U/L COMPREHENSIVE METABOLIC [id number] 00:00:00 Test Item Value Reference Range Interpretation Comments GLUCOSE (test code = 2217) 90 MG/DL BUN (test code = 2208) 19 MG/DL CREATININE (test code = 2214) 0.75 MG/DL eGFR AMER. (test code 101 ML/MIN/1.73 = 66387) eGFR NON- AMER. (test 87 ML/MIN/1.73 code = 34605) CALC BUN/CREAT (test code = 25 RATIO 2235) SODIUM (test code = 2231) 143 MEQ/L POTASSIUM (test code = 2228) 3.8 MEQ/L CHLORIDE (test code = 2215) 106 MEQ/L CARBON DIOXIDE (test code = 20 MEQ/L 2205) CALCIUM (test code = 2209) 9.0 MG/DL PROTEIN, TOTAL (test code = 6.7 G/DL 2228) ALBUMIN (test code = 2201) 4.3 G/DL CALC GLOBULIN (test code = 2.4 G/DL 2240) CALC A/G RATIO (test code = 1.8 RATIO 2234) BILIRUBIN, TOTAL (test code = 1.1 MG/DL 2206) ALKALINE PHOSPHATASE (test 87 U/L code = 2204) AST (test code = 2218) 18 U/L ALT (test code = 2219) 15 U/L CBC W/AUTO [id number] 00:00:00 Test Item Value Reference Range Interpretation Comments WBC (test code = 1001) 8.6 K/UL RBC (test code = 1002) 4.08 M/UL HEMOGLOBIN (test code = 1003) 13.0 G/DL HEMATOCRIT (test code = 1004) 38.0 % MCV (test code = 1005) 93.1 fL MCH (test code = 1006) 31.9 PG MCHC (test code = 1007) 34.2 G/DL RDW (test code = 1038) 12.6 % NEUTROPHILS (test code = 1008) 58.8 % LYMPHOCYTES (test code = 1010) 34.9 % MONOCYTES (test code = 1011) 6.1 % EOSINOPHILS (test code = 1012) 0.1 % BASOPHILS (test code = 1013) 0.1 % PLATELET COUNT (test code = 1015) 197 K/UL CBC W/AUTO [id number] 00:00:00 Test Item Value Reference Range Interpretation Comments WBC (test code = 1001) 8.6 K/UL RBC (test code = 1002) 4.08 M/UL HEMOGLOBIN (test code = 1003) 13.0 G/DL HEMATOCRIT (test code = 1004) 38.0 % MCV (test code = 1005) 93.1 fL MCH (test code = 1006) 31.9 PG MCHC (test code = 1007) 34.2 G/DL RDW (test code = 1038) 12.6 % NEUTROPHILS (test code = 1008) 58.8 % LYMPHOCYTES (test code = 1010) 34.9 % MONOCYTES (test code = 1011) 6.1 % EOSINOPHILS (test code = 1012) 0.1 % BASOPHILS (test code = 1013) 0.1 % PLATELET COUNT (test code = 1015) 197 K/UL CBC W/AUTO [id number] 00:00:00 Test Item Value Reference Range Interpretation Comments WBC (test code = 1001) 8.6 K/UL RBC (test code = 1002) 4.08 M/UL HEMOGLOBIN (test code = 1003) 13.0 G/DL HEMATOCRIT (test code = 1004) 38.0 % MCV (test code = 1005) 93.1 fL MCH (test code = 1006) 31.9 PG MCHC (test code = 1007) 34.2 G/DL RDW (test code = 1038) 12.6 % NEUTROPHILS (test code = 1008) 58.8 % LYMPHOCYTES (test code = 1010) 34.9 % MONOCYTES (test code = 1011) 6.1 % EOSINOPHILS (test code = 1012) 0.1 % BASOPHILS (test code = 1013) 0.1 % PLATELET COUNT (test code = 1015) 197 K/UL ACUTE HEPATITIS [id number] 00:00:00 Test Item Value Reference Range Interpretation Comments HEPATITIS A IgM (test code = NON-REACTIVE 77340) HEPATITIS B CORE IgM (test code NON-REACTIVE = 4644) HEPATITIS B SURF AG (test code = NON-REACTIVE 2739) HEPATITIS C ANTIBODY (test code NON-REACTIVE = 4675) INTERPRETATION HEPATITIS A: (NOTE) (test code = 2552) INTERPRETATION HEPATITIS B: (NOTE) (test code = 37527) INTERPRETATION HEPATITIS C: (NOTE) (test code = 84463) ACUTE HEPATITIS [id number] 00:00:00 Test Item Value Reference Range Interpretation Comments HEPATITIS A IgM (test code = NON-REACTIVE 24007) HEPATITIS B CORE IgM (test code NON-REACTIVE = 4644) HEPATITIS B SURF AG (test code = NON-REACTIVE 2739) HEPATITIS C ANTIBODY (test code NON-REACTIVE = 4675) INTERPRETATION HEPATITIS A: (NOTE) (test code = 2552) INTERPRETATION HEPATITIS B: (NOTE) (test code = 84277) INTERPRETATION HEPATITIS C: (NOTE) (test code = 65040) [id number] 00:00:00 Test Item Value Reference Range Interpretation Comments AMYLASE (test code = 2205) 69 U/L [id number] 00:00:00 Test Item Value Reference Range Interpretation Comments AMYLASE (test code = 2205) 69 U/L [id number] 00:00:00 Test Item Value Reference Range Interpretation Comments LIPASE (test code = 2058) 16 U/L [id number] 00:00:00 Test Item Value Reference Range Interpretation Comments LIPASE (test code = 2058) 16 U/L [id number] 00:00:00 Test Item Value Reference Range Interpretation Comments LIPASE (test code = 2058) 16 U/L [id number] 00:00:00 Test Item Value Reference Range Interpretation Comments TSH (test code = 2821) 1.8 UIU/ML [id number] 00:00:00 Test Item Value Reference Range Interpretation Comments TSH (test code = 2821) 1.8 UIU/ML [id number] 00:00:00 Test Item Value Reference Range Interpretation Comments TSH (test code = 2821) 1.8 UIU/ML COMPREHENSIVE METABOLIC [id number] 00:00:00 Test Item Value Reference Range Interpretation Comments GLUCOSE (test code = 2217) 116 MG/DL BUN (test code = 2208) 15 MG/DL CREATININE (test code = 2214) 0.64 MG/DL eGFR AMER. (test code 114 ML/MIN/1.73 = 24942) eGFR NON- AMER. (test 98 ML/MIN/1.73 code = 62941) CALC BUN/CREAT (test code = 23 RATIO 2235) SODIUM (test code = 2231) 141 MEQ/L POTASSIUM (test code = 2228) 3.8 MEQ/L CHLORIDE (test code = 2215) 102 MEQ/L CARBON DIOXIDE (test code = 22 MEQ/L 220) CALCIUM (test code = 2209) 9.7 MG/DL PROTEIN, TOTAL (test code = 7.1 G/DL 2228) ALBUMIN (test code = 2201) 4.5 G/DL CALC GLOBULIN (test code = 2.6 G/DL 0) CALC A/G RATIO (test code = 1.7 RATIO 2233) BILIRUBIN, TOTAL (test code = 0.7 MG/DL 2206) ALKALINE PHOSPHATASE (test 88 U/L code = 2204) AST (test code = 2218) 15 U/L ALT (test code = 2219) 10 U/L COMPREHENSIVE METABOLIC [id number] 00:00:00 Test Item Value Reference Range Interpretation Comments GLUCOSE (test code = 2217) 116 MG/DL BUN (test code = 2208) 15 MG/DL CREATININE (test code = 2214) 0.64 MG/DL eGFR AMER. (test code 114 ML/MIN/1.73 = 03093) eGFR NON- AMER. (test 98 ML/MIN/1.73 code = 43377) CALC BUN/CREAT (test code = 23 RATIO 2235) SODIUM (test code = 2231) 141 MEQ/L POTASSIUM (test code = 2228) 3.8 MEQ/L CHLORIDE (test code = 2215) 102 MEQ/L CARBON DIOXIDE (test code = 22 MEQ/L 2206) CALCIUM (test code = 2209) 9.7 MG/DL PROTEIN, TOTAL (test code = 7.1 G/DL 2228) ALBUMIN (test code = 2201) 4.5 G/DL CALC GLOBULIN (test code = 2.6 G/DL 2239) CALC A/G RATIO (test code = 1.7 RATIO 2233) BILIRUBIN, TOTAL (test code = 0.7 MG/DL 2206) ALKALINE PHOSPHATASE (test 88 U/L code = 2204) AST (test code = 2218) 15 U/L ALT (test code = 2219) 10 U/L HEMOGLOBIN [id number] 00:00:00 Test Item Value Reference Range Interpretation Comments HEMOGLOBIN A1c (test code = 58873) 5.7 % HEMOGLOBIN [id number] 00:00:00 Test Item Value Reference Range Interpretation Comments HEMOGLOBIN A1c (test code = 82559) 5.7 % HEMOGLOBIN [id number] 00:00:00 Test Item Value Reference Range Interpretation Comments HEMOGLOBIN A1c (test code = 06206) 5.7 %
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
[2022-05-25] MEDS ORDERED: ACETAMINOPHEN 325 MG TABLET ONE (13:13)
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
--- NOTE | 2022-05-25 13:43 | RAD REPORT ---
EXAM DESCRIPTION: Kristyn Single View05/25/2022 1:05 pm CLINICAL HISTORY: Chest pain COMPARISON: September 2021 FINDINGS: The lungs appear clear of acute infiltrate. The heart is normal size IMPRESSION: No acute abnormalities displayed
--- NOTE | 2022-05-25 13:43 | RAD REPORT ---
EXAM DESCRIPTION: RAD - Tib Fib Right - 05/25/2022 1:05 pm CLINICAL HISTORY: Right leg pain FINDINGS: No fracture is seen
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
[2022-05-25 15:25] VITALS: TEMP 98.6
[2022-05-25 15:28] VITALS: BP 113/58; O2SAT 99
== END 2022-05-25 15:10 | disposition home or self-care (01) ==
LOC: ER 11:23
DX: S16.1XXA Strain of muscle, fascia and tendon at neck level, initial encounter (principal); S80.11XA Contusion of right lower leg, initial encounter; V49.40XA Driver injured in collision with unspecified motor vehicles in traffic accident, initial encounter; I10 Essential (primary) hypertension; Z88.0 Allergy status to penicillin; Z88.8 Allergy status to other drugs, medicaments and biological substances
CPT/HCPCS: 70450; 71045; 72125; 72170; 99284

== ENCOUNTER 2022-11-12 16:19 | Emergency (ER) | payer OTHER ==
--- OUTSIDE RECORDS SUMMARY | 2022-11-12 16:54 | XMS REPORT | Continuity of Care Document ---
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 (NASONEX) 2-27 } Clarissa in ity of 50 08:46: each [place] mcg/actuati 35 nostril. Medi jesus on nasal Branch spray clopidogreL 2023-0 Yes 75mg Take 1 Univ ers (PLAVIX) 75 2-27 tablet by ity of mg tablet 08:46: mouth [place] 35 the Medical morning. Branch ergocalcife 2022-0 Yes Take by Uni vers rol, 2-27 mouth. ity of vitamin D2, 08:46: [place] (VITAMIN D 35 Medical ORAL) Branch scopolamine 3-0 Yes 1{patch Apply 1 [facility] transdermal 2-27 } Patch to ity of 1 mg over 3 08:46: area(s) [place] as days patch 35 every 72 Medic al (seventy-t Branch wo) hours. venlafaxine 3-0 Yes 150mg Take 150 U nivers XR 150 mg 2-27 mg by ity of 24 hr 08:46: mouth in [place] capsule 35 the Medical morning. Branch spironolact 3-0 Yes 25mg Take 1 Univ ers one 25 mg 2-27 tablet by ity o f tablet 00:00: mouth in [place] 00 the Medical morning. Branch spironolact 3-0 Yes 25mg Take 1 Univ ers one 25 mg 2-27 tablet by ity o f tablet 00:00: mouth in [place] 00 the Medical morning. Branch isosorbide 2023-0 Yes 60mg Take 1 Unive rs mononitrate 2-14 tablet by ity of 60 mg 24 hr 00:00: mouth in [place] tablet 00 the Medical morning. Branch isosorbide 2023-0 Yes 60mg Take 1 Unive rs mononitrate 2-14 tablet by ity of 60 mg 24 hr 00:00: mouth in [place] tablet 00 the Medical morning. Branch isosorbide 2023-0 Yes 60mg Take 1 Unive rs mononitrate 2-14 tablet by ity of 60 mg 24 hr 00:00: mouth in [place] tablet 00 the Medical morning. Branch isosorbide 2023-0 Yes 60mg Take 1 Unive rs mononitrate 2-14 tablet by ity of 60 mg 24 hr 00:00: mouth in [place] tablet 00 the Medical morning. Branch rosuvastati 3-0 Yes 1{tbl} Take 1 Un jackie n 20 mg 2-10 tablet by ity of tablet 00:00: mouth in [place] 00 the Medical morning. Branch rosuvastati 3-0 Yes 1{tbl} Take 1 Un jackie n 20 mg 2-10 tablet by ity of tablet 00:00: mouth in [place] 00 the Medical morning. Branch rosuvastati Yes 1{tbl} Take 1 Un jackie n 20 mg 2-10 tablet by ity of tablet 00:00: mouth in [place] 00 the Medical morning. Branch rosuvastati 0 Yes 20mg Take 1 Univ ers n 20 mg 2-10 tablet by ity of tablet 00:00: mouth in [place] 00 the Medical morning. Branch levothyroxi 2022-0 Yes 25ug Take 1 Univ ers ne 25 mcg 2-10 tablet by ity o f tablet 00:00: mouth [place] 00 every Medical morning. Branch rosuvastati 0 Yes 20mg Take 1 Univ ers n 20 mg 2-10 tablet by ity of tablet 00:00: mouth in [place] 00 the Medical morning. Branch levothyroxi 0 Yes 25ug Take 1 Univ ers ne 25 mcg 2-10 tablet by ity o f tablet 00:00: mouth [place] 00 every Medical morning. Branch levothyroxi 0 Yes 25ug Take 1 Univ ers ne 25 mcg 2-10 tablet by ity o f tablet 00:00: mouth [place] 00 every Medical morning. Branch levothyroxi 0 Yes 25ug Take 1 Univ ers ne 25 mcg 2-10 tablet by ity o f tablet 00:00: mouth [place] 00 every Medical morning. Branch esomeprazol 0 Yes 40mg Take 40 mg Univers e 40 mg 1-31 by mouth ity of capsule 14:28: daily. [place] 00 Medical Branch budesonide- Yes 2{puff} Inhale 2 Univers formoteroL 1-31 Puffs 2 ity of 160-4.5 14:28: (two) [place] mcg/actuati 00 times Medical on inhaler daily. Branch nitroglycer [address] 0.4 U nivers in 1-31 mg under ity of (NITROSTAT) 14:28: the tongue [place] 0.4 mg 00 every 5 Medical sublingual (five) Branch tablet minutes as needed for Chest pain. mometasone 0 Yes 1{spray Use 1 Uni vers (NASONEX) 1-31 } Clarissa in ity of 50 14:28: each [place] mcg/actuati 00 nostril. Medi jesus on nasal Branch spray clopidogreL Yes 75mg Take 75 mg Univers (PLAVIX) 75 31 by mouth ity of mg tablet 14:28: daily. Medical Branch ergocalcife Yes Take by Uni vers rol, 07-23 mouth. ity of vitamin D2, 14:28: [place] (VITAMIN D 00 Medical ORAL) Branch scopolamine Yes 1{patch Apply 1 [facility] transdermal 07-23 } Patch to ity of 1 mg over 3 14:28: area(s) [place] as days patch 00 every 72 Medic al (seventy-t Branch wo) hours. venlafaxine Yes 150mg Take 150 U nivers XR 150 mg 1-31 mg by ity of 24 hr 14:28: mouth in [place] capsule 00 the Medical morning. Branch esomeprazol Yes 40mg Take 40 mg Univers e 40 mg 07-23 by mouth ity of capsule 14:28: daily. Medical Branch budesonide- Yes 2{puff} Inhale 2 Univers formoteroL 1-31 Puffs 2 ity of 160-4.5 14:28: (two) [place] mcg/actuati 00 times Medical on inhaler daily. Branch nitroglycer Yes .4mg Place 0.4 U nivers in 1-31 mg under ity of (NITROSTAT) 14:28: the tongue [place] 0.4 mg 00 every 5 Medical sublingual (five) Branch tablet minutes as needed for Chest pain. mometasone Yes 1{spray Use 1 Uni vers (NASONEX) 07-23 } Clarissa in ity of 50 14:28: each [place] mcg/actuati 00 nostril. Medi jesus on nasal Branch spray clopidogreL Yes 75mg Take 75 mg Univers (PLAVIX) 75 31 by mouth ity of mg tablet 14:28: daily. Medical Branch ergocalcife Yes Take by Uni vers rol, 07-23 mouth. ity of vitamin D2, 14:28: [place] (VITAMIN D 00 Medical ORAL) Branch scopolamine Yes 1{patch Apply 1 [facility] transdermal 07-23 } Patch to ity of 1 mg over 3 14:28: area(s) [place] as days patch 00 every 72 Medic al (seventy-t Branch wo) hours. venlafaxine Yes 150mg Take 150 U nivers XR 150 mg 1-31 mg by ity of 24 hr 14:28: mouth in [place] capsule 00 the Medical morning. Branch esomeprazol Yes 40mg Take 40 mg Univers e 40 mg 1-31 by mouth ity of capsule 14:28: daily. [place] Medical Branch budesonide- Yes 2{puff} Inhale 2 Univers formoteroL 1-31 Puffs 2 ity of 160-4.5 14:28: (two) [place] mcg/actuati 00 times Medical on inhaler daily. Branch nitroglycer Yes .4mg Place 0.4 U nivers in 1-31 mg under ity of (NITROSTAT) 14:28: the tongue [place] 0.4 mg 00 every 5 Medical sublingual (five) Branch tablet minutes as needed for Chest pain. mometasone Yes 1{spray Use 1 Uni vers (NASONEX) 1-31 } Clarissa in ity of 50 14:28: each [place] mcg/actuati 00 nostril. Medi jesus on nasal Branch spray clopidogreL Yes 75mg Take 75 mg Univers (PLAVIX) 75 31 by mouth ity of mg tablet 14:28: daily. Medical Branch ergocalcife Yes Take by Uni vers rol, 1-31 mouth. ity of vitamin D2, 14:28: [place] (VITAMIN D 00 Medical ORAL) Branch scopolamine Yes 1{patch Apply 1 [facility] transdermal 1-31 } Patch to ity of 1 mg over 3 14:28: area(s) [place] as days patch 00 every 72 Medic al (seventy-t Branch wo) hours. venlafaxine Yes 150mg Take 150 U nivers XR 150 mg 1-31 mg by ity of 24 hr 14:28: mouth in [place] capsule 00 the Medical morning. Branch Vitamin B12 Vitamin B12 No 1000ug Common (Cyanocobal (Cyanocobal 1-31 S pirit nayak) nayak) 00:00: - [facility] 00 [facility] TRELEGY Yes 1{puff} Inhale 1 Uni vers ELLIPTA 1-30 Puff ity of 200-62.5-25 00:00: daily. [place] mcg DsDv Medical Branch TREGY Yes 1{puff} Inhale 1 Uni vers ELLIPTA 1-30 Puff ity of 200-62.5-25 00:00: daily. [place] mcg DsDv Medical Branch TREGY Yes 1{puff} Inhale 1 Uni vers ELLIPTA 1-30 Puff ity of 200-62.5-25 00:00: daily. [place] mcg DsDv Medical Branch TREGY Yes 1{puff} Inhale 1 Uni vers ELLIPTA 1-30 Puff ity of 200-62.5-25 00:00: daily. [place] mcg DsDv Medical Branch TREGY Yes 1{puff} Inhale 1 Uni vers ELLIPTA 1-30 Puff ity of 200-62.5-25 00:00: daily. [place] mcg DsDv Medical Branch TREGY Yes 1{puff} Inhale 1 Uni vers ELLIPTA 1-30 Puff ity of 200-62.5-25 00:00: daily. [place] mcg DsDv Medical Branch TREGY Yes 1{puff} Inhale 1 Uni vers ELLIPTA 1-30 Puff ity of 200-62.5-25 00:00: daily. [place] mcg DsDv Medical Branch metroNIDAZO 2022- No [id number] 500mg Take 1 Univers LE 500 mg 07-19 0204 tablet by ity of tablet 00:00: 05:59 mouth [place] 00 :00 every 12 Medical (twelve) Branch hours for 7 days. esomeprazol Yes 40mg Take 40 mg Univers e 40 mg 1-25 by mouth ity of capsule 13:17: daily. [place] 53 Medical Branch budesonide- 0 Yes 2{puff} Inhale 2 Univers formoteroL 1-25 Puffs 2 ity of 160-4.5 13:17: (two) [facility]/actuati 53 times Medical on inhaler daily. Branch clopidogreL 0 Yes 75mg Take 75 mg Univers (PLAVIX) 75 1-25 by mouth ity of mg tablet 13:17: daily. [address] Branch scopolamine 0 Yes 1{patch Apply 1 Univers transdermal 1-25 } Patch to ity of 1 mg over 3 13:17: area(s) [place] as days patch 53 every 72 Medic al (seventy-t Branch wo) hours. venlafaxine 0 Yes 150mg Take 150 U nivers XR 150 mg 1-25 mg by ity of 24 hr 13:17: mouth in [place] capsule 53 the Medical morning. Branch esomeprazol 0 Yes 40mg Take 40 mg Univers e 40 mg 1-25 by mouth ity of capsule 13:17: daily. [address] Branch budesonide- 0 Yes 2{puff} Inhale 2 Univers formoteroL 1-25 Puffs 2 ity of 160-4.5 13:17: (two) [place] mcg/actuati 53 times Medical on inhaler daily. Branch clopidogreL Yes 75mg Take 75 mg Univers (PLAVIX) 75 1-25 by mouth ity of mg tablet 13:17: daily. [address] scopolamine Yes 1{patch Apply 1 Univers transdermal 1-25 } Patch to ity of 1 mg over 3 13:17: area(s) [place] as days patch 53 every 72 Medic al ([facility]-t Branch wo) hours. venlafaxine 0 Yes 150mg Take 150 U nivers XR 150 mg 1-25 mg by ity of 24 hr 13:17: mouth in [place] capsule 53 the Medical morning. Branch esomeprazol 0 Yes 40mg Take 40 mg Univers e 40 mg 1-25 by mouth ity of capsule 13:17: daily. [address] budesonide- 0 Yes 2{puff} Inhale 2 Univers formoteroL 1-25 Puffs 2 ity of 160-4.5 13:17: (two) [place] mcg/actuati 53 times Medical on inhaler daily. Branch clopidogreL 0 Yes 75mg Take 75 mg Univers (PLAVIX) 75 1-25 by mouth ity of mg tablet 13:17: daily. [address] Branch scopolamine 0 Yes 1{patch Apply 1 Univers transdermal 1-25 } Patch to ity of 1 mg over 3 13:17: area(s) [place] as days patch 53 every 72 Medic al (seventy-t Branch wo) hours. venlafaxine Yes 150mg Take 150 U nivers XR 150 mg 1-25 mg by ity of 24 hr 13:17: mouth in [place] capsule 53 the Medical morning. Branch esomeprazol Yes 40mg Take 40 mg Univers e 40 mg 1-25 by mouth ity of capsule 13:17: daily. [place] [address] Medical Branch budesonide- Yes 2{puff} Inhale 2 Univers formoteroL 1-25 Puffs 2 ity of 160-4.5 13:17: (two) [place] mcg/actuati 53 times Medical on inhaler daily. Branch clopidogreL Yes 75mg Take 75 mg Univers (PLAVIX) 75 1-25 by mouth ity of mg tablet 13:17: daily. [address] Branch scopolamine Yes 1{patch Apply 1 Univers transdermal 1-25 } Patch to ity of 1 mg over 3 13:17: area(s) [place] as days patch 53 every 72 Medic al (seventy-t Branch wo) hours. venlafaxine Yes 150mg Take 150 U nivers XR 150 mg 1-25 mg by ity of 24 hr 13:17: mouth in [place] capsule 53 the Medical morning. Branch mupirocin 2 0 Yes [id number] Apply to Univers % ointment 1-25 area(s) 3 ity of 00:00: (three) [place] 00 times Medical daily. Branch fluconazole 2022-0 Yes [id number] 150mg Take 1 Univers 150 mg 1-25 tablet by ity of tablet 00:00: mouth [place] 00 every Medical other day. Branch mupirocin 2 2022-0 Yes [id number] Apply to Univers % ointment 1-25 area(s) 3 ity of 00:00: (three) [place] 00 times Medical daily. Branch fluconazole 2022-0 Yes [id number] 150mg Take 1 Univers 150 mg 1-25 tablet by ity of tablet 00:00: mouth [place] 00 every Medical other day. Branch mupirocin 2 2022-0 Yes [id number] Apply to Univers % ointment 1-25 area(s) 3 ity of 00:00: (three) [place] 00 times Medical daily. Branch fluconazole 2022-0 Yes [id number] 150mg Take 1 Univers 150 mg 1-25 tablet by ity of tablet 00:00: mouth [place] 00 every Medical other day. Branch mupirocin 2 2022-0 Yes [id number] Apply to Univers % ointment 1-25 area(s) 3 ity of 00:00: (three) [place] 00 times Medical daily. Branch fluconazole 2022-0 Yes [id number] 150mg Take 1 Univers 150 mg 1-25 tablet by ity of tablet 00:00: mouth [place] 00 every Medical other day. Branch mupirocin 2 2022-0 Yes [id number] Apply to Univers % ointment 1-25 area(s) 3 ity of 00:00: (three) [place] 00 times Medical daily. Branch fluconazole 2022-0 Yes [id number] 150mg Take 1 Univers 150 mg 1-25 tablet by ity of tablet 00:00: mouth [place] 00 every Medical other day. Branch mupirocin 2 2022-0 Yes [id number] Apply to Univers % ointment 1-25 area(s) 3 ity of 00:00: (three) [place] 00 times Medical daily. Branch fluconazole 2022-0 Yes [id number] 150mg Take 1 Univers 150 mg 1-25 tablet by ity of tablet 00:00: mouth [place] 00 every Medical other day. Branch mupirocin 2 2022-0 Yes [id number] Apply to Univers % ointment 1-25 area(s) 3 ity of 00:00: (three) [place] 00 times Medical daily. Branch fluconazole 2022-0 Yes [id number] 150mg Take 1 Univers 150 mg 1-25 tablet by ity of tablet 00:00: mouth [place] 00 every Medical other day. Branch mupirocin 2 2022-0 Yes [id number] Apply to Univers % ointment 1-25 area(s) 3 ity of 00:00: (three) [place] 00 times Medical daily. Branch fluconazole 2022-0 Yes [id number] 150mg Take 1 Univers 150 mg 1-25 tablet by ity of tablet 00:00: mouth [place] 00 every Medical other day. Branch mupirocin 2 2022-0 Yes [id number] Apply to Univers % ointment 1-25 area(s) 3 ity of 00:00: (three) [place] 00 times Medical daily. Branch fluconazole 2022-0 Yes [id number] 150mg Take 1 Univers 150 mg 1-25 tablet by ity of tablet 00:00: mouth [place] 00 every Medical other day. Branch mupirocin 2 2022-0 Yes [id number] Apply to Univers % ointment 1-25 area(s) 3 ity of 00:00: (three) [place] 00 times Medical daily. Branch fluconazole 2022-0 Yes [id number] 150mg Take 1 Univers 150 mg 1-25 tablet by ity of tablet 00:00: mouth [place] 00 every Medical other day. Branch mupirocin 2 2022-0 Yes [id number] Apply to Univers % ointment 1-25 area(s) 3 ity of 00:00: (three) [place] 00 times Medical daily. Branch fluconazole 2022-0 Yes [id number] 150mg Take 1 Univers 150 mg 1-25 tablet by ity of tablet 00:00: mouth [place] 00 every Medical other day. Branch mupirocin 2 2022-0 Yes [id number] Apply to Univers % ointment 1-25 area(s) 3 ity of 00:00: (three) [place] 00 times Medical daily. Branch fluconazole 2022-0 Yes [id number] 150mg Take 1 Univers 150 mg 1-25 tablet by ity of tablet 00:00: mouth 00 every Medical other day. Branch methylPREDN methylPREDN 2022- No QD methylPRED ISolone 4 ISolone 4 07-01 NISolone 4 MG MG 00:00: 00:00 MG 00 :00 methylPREDN methylPREDN 2022- No QD methylPRED ISolone 4 ISolone 4 07-01 NISolone 4 MG MG 00:00: 00:00 MG 00 :00 Azithromyci Azithromyci 2022- No QD Azithromyc n 250 MG n 250 MG 07-01 in 250 MG 00:00: 00:00 00 :00 Azithromyci Azithromyci 2022- No QD Azithromyc n 250 MG n 250 MG 07-01 in 250 MG 00:00: 00:00 00 :00 losartan 2021-1 Yes 1{tbl} Take 1 Unive rs 100 mg 2-23 tablet by ity of tablet 00:00: mouth in [place] the Medical morning. Branch losartan 2021- Yes 1{tbl} Take 1 Unive rs 100 mg 2-23 tablet by ity of tablet 00:00: mouth in [place] the Medical morning. Branch losartan 2021- Yes 1{tbl} Take 1 Unive rs 100 mg 2-23 tablet by ity of tablet 00:00: mouth in [place] the Medical morning. Branch losartan 2021- Yes 1{tbl} Take 1 Unive rs 100 mg 2-23 tablet by ity of tablet 00:00: mouth in [place] the Medical morning. Branch losartan 2021- Yes 1{tbl} Take 1 Unive rs 100 mg 2-23 tablet by ity of tablet 00:00: mouth in [place] the Medical morning. Branch losartan 2021- Yes 100mg Take 1 Univer s 100 mg 2-23 tablet by ity of tablet 00:00: mouth in [place] the Medical morning. Branch losartan 2021- Yes 100mg Take 1 Univer s 100 mg 2-23 tablet by ity of tablet 00:00: mouth in [place] the Medical morning. Branch losartan 2021- Yes 100mg Take 1 Univer s 100 mg 2-23 tablet by ity of tablet 00:00: mouth in [place] the Medical morning. Branch losartan 2021- Yes 100mg Take 1 Univer s 100 mg 2-23 tablet by ity of tablet 00:00: mouth in [place] the Medical morning. [place] Vitamin B12 Vitamin B12 2021-06 No 1000ug Common (Cyanocobal (Cyanocobal 2-14 S pirit nayak) nayak) 00:00: - [facility] 00 [facility] Vitamin B12 Vitamin B12 2021-06 No 1000ug Common (Cyanocobal (Cyanocobal 2-14 S pirit nayak) nayak) 00:00: - [facility] 00 [facility] Vitamin B12 Vitamin B12 2021-06 No 1000ug Common (Cyanocobal (Cyanocobal 2-14 S pirit nayak) nayak) 00:00: - [facility] 00 [facility] Vitamin B12 Vitamin B12 2021-06 No 1000ug Common (Cyanocobal (Cyanocobal 2-14 S pirit nayak) nayak) 00:00: - [facility] 00 [facility] Vitamin B12 Vitamin B12 2021-06 No 1000ug Common (Cyanocobal (Cyanocobal 1-07 S pirit nayak) nayak) 00:00: - [facility] 00 [facility] Vitamin B12 Vitamin B12 2021-06 No 1000ug Common (Cyanocobal (Cyanocobal 1-07 S pirit nayak) nayak) 00:00: - [facility] 00 [facility] Vitamin B12 Vitamin B12 2021-06 No 1000ug Common (Cyanocobal (Cyanocobal 1-07 S pirit nayak) nayak) 00:00: - [facility] 00 [facility] Vitamin B12 Vitamin B12 2021-06 No 1000ug Common (Cyanocobal (Cyanocobal 1-07 S pirit nayak) nayak) 00:00: - [facility] 00 [facility] Vitamin B12 Vitamin B12 2021-06 No 1000ug Common (Cyanocobal (Cyanocobal 1-07 S pirit nayak) nayak) 00:00: - [facility] 00 [facility] Vitamin B12 Vitamin B12 2021-06 No 1000ug Common (Cyanocobal (Cyanocobal 1-07 S pirit nayak) nayak) 00:00: - [facility] 00 [facility] Vitamin B12 Vitamin B12 2021-06 No 1000ug Common (Cyanocobal (Cyanocobal 1-07 S pirit nayak) nayak) 00:00: - [facility] 00 [facility] TAKE 1 2021-06 No TABLET BY 0-19 MOUTH TWICE 00:00: A DAY FOR 7 00 DAYS Vitamin B12 Vitamin B12 2021-06 No 1000ug Common (Cyanocobal (Cyanocobal 0-05 S pirit nayak) nayak) 00:00: - [facility] 00 [facility] Vitamin B12 Vitamin B12 2021-06 No 1000ug Common (Cyanocobal (Cyanocobal 0-05 S pirit nayak) nayak) 00:00: - [facility] 00 [facility] Vitamin B12 Vitamin B12 2021-06 No 1000ug Common (Cyanocobal (Cyanocobal 0-05 S pirit nayak) nayak) 00:00: - [facility] 00 [facility] Vitamin B12 Vitamin B12 2021-06 No 1000ug Common (Cyanocobal (Cyanocobal 0-05 S pirit nayak) nayak) 00:00: - [facility] 00 [facility] Vitamin B12 Vitamin B12 2021-1 No 1000ug Common (Cyanocobal (Cyanocobal 0-05 S pirit nayak) nayak) 00:00: - [facility] 00 [facility] Vitamin B12 Vitamin B12 2021-1 No 1000ug Common (Cyanocobal (Cyanocobal 0-05 S pirit nayak) nayak) 00:00: - [facility] 00 [facility] Vitamin B12 Vitamin B12 2021-1 No 1000ug Common (Cyanocobal (Cyanocobal 0-05 S pirit nayak) nayak) 00:00: - [facility] 00 [facility] Vitamin B12 Vitamin B12 2021-1 No 1000ug Common (Cyanocobal (Cyanocobal 0-05 S pirit nayak) nayak) 00:00: - [facility] 00 [facility] Vitamin B12 Vitamin B12 2021-1 No 1000ug Common (Cyanocobal (Cyanocobal 0-05 S pirit nayak) nayak) 00:00: - [facility] 00 [facility] Vitamin B12 Vitamin B12 2021-1 No 1000ug Common (Cyanocobal (Cyanocobal 0-05 S pirit nayak) nayak) 00:00: - [facility] 00 [facility] Vitamin B12 Vitamin B12 2021-0 No 1000ug Common (Cyanocobal (Cyanocobal 8-23 S pirit nayak) nayak) 00:00: - [facility] 00 [facility] Vitamin B12 Vitamin B12 2021-0 No 1000ug Common (Cyanocobal (Cyanocobal 8-23 S pirit nayak) nayak) 00:00: - [facility] 00 [facility] Vitamin B12 Vitamin B12 2021-0 No 1000ug Common (Cyanocobal (Cyanocobal 8-23 S pirit nayak) nayak) 00:00: - [facility] 00 [facility] Vitamin B12 Vitamin B12 2021-0 No 1000ug Common (Cyanocobal (Cyanocobal 8-23 S pirit nayak) nayak) 00:00: - [facility] 00 [facility] Vitamin B12 Vitamin B12 2021-0 No 1000ug Common (Cyanocobal (Cyanocobal 8-23 S pirit nayak) nayak) 00:00: - [facility] 00 [facility] Vitamin B12 Vitamin B12 2-0 No 1000ug Common (Cyanocobal (Cyanocobal 8-23 S pirit nayak) nayak) 00:00: - [facility] 00 [facility] Vitamin B12 Vitamin B12 2021-0 No 1000ug Common (Cyanocobal (Cyanocobal 8-23 S pirit nayak) nayak) 00:00: - [facility] 00 [facility] Vitamin B12 Vitamin B12 2021-0 No 1000ug Common (Cyanocobal (Cyanocobal 8-23 S pirit nayak) nayak) 00:00: - [facility] Vitamin B12 Vitamin B12 2021-0 No 1000ug Common (Cyanocobal (Cyanocobal 8-23 S pirit nayak) nayak) 00:00: - [facility] 00 [facility] Vitamin B12 Vitamin B12 2021-0 No 1000ug Common (Cyanocobal (Cyanocobal 8-23 S pirit nayak) nayak) 00:00: - CH[facility] Vitamin B12 Vitamin B12 2021-0 No 1000ug Common (Cyanocobal (Cyanocobal 8-23 S pirit nayak) nayak) 00:00: - [facility] triamcinolo 2021- No PRN, Unive rs ne 02-04 Starting ity of acetonide 13:30: 16:21 on Fri (KENALOG) 00 :10 02/04/22 at [facility] injection 0830, Branch Until Fri02/04/22 at 1121, Routine, Intra-op lidocaine 2021- No PRN, Univers 1% 02-04 Starting ity of (XYLOCAINE) 13:30: 16:21 on Fri [place] as 10 mg/mL (1 00 :10 02/04/22 at Me dical %) 0830, Branch injection Until Fri02/04/22 at 1121, Routine, Intra-op iohexoL 2021- No PRN, Univers (OMNIPAQUE 02-04 Starting ity of 300-50 mL)) 13:30: 16:21 on Fri [place] as injection 00 :10 02/04/22 at Medi jesus 0830, Branch Until Fri02/04/22 at 1121, Routine, Intra-op bupivacaine 2021- No PRN, Unive rs (preserv 02-04 Starting ity of free) 13:30: 16:21 on Fri [place] (SENSORCAIN 00 :10 02/04/22 at Tx dical E MPF) 0.25 0830, Branch % (2.5 Until Mon mg/mL) 02/04/22 at injection 1121, Routine, Intra-op lactated 2021-0 2021- [facility] 08-15 mL/hr, ity of infusion 12:15: 12:14 1,000 mL, [place] as 1,000 mL 00 :00 IV Medical Infusion, Branch ONCE, 1 dose, On Fri02/04/22 at 0715, Routine, DSU Pre-op lactated 2021-0 2021- No 1000mL at 42 [facility] rs ringers IV 8-15 08-15 mL/hr, ity of infusion 12:15: 12:14 1,000 mL, [place] as 1,000 mL 00 :00 IV Medical Infusion, Branch ONCE, 1 dose, On Fri02/04/22 at 0715, Routine, DSU Pre-op esomeprazol Yes 40mg Take 40 mg Univers e 40 mg 8-15 by mouth ity of capsule 09:21: daily. [address] budesonide- Yes 2{puff} Inhale 2 Univers [...] Use 1 Uni vers (NASONEX) 8-15 } Clarissa in ity of 50 09:21: each [place] mcg/actuati 06 nostril. Medi jesus on nasal Branch spray clopidogreL Yes 75mg Take 75 mg Univers (PLAVIX) 75 8-15 by mouth ity of mg tablet 09:21: daily. [address] Branch ergocalcife Yes Take by Uni [...] ity of 24 hr 09:21: mouth in [place] capsule the Medical morning. Branch esomeprazol Yes 40mg Take 40 mg Univers e 40 mg 8-15 by mouth ity of capsule 09:21: daily. [address] budesonide- Yes 2{puff} Inhale 2 Univers [...] Use 1 Uni vers (NASONEX) 8-15 } Clarissa in ity of 50 09:21: each [place] mcg/actuati 06 nostril. Medi jesus on nasal Branch spray clopidogreL Yes 75mg Take 75 mg Univers (PLAVIX) 75 8-15 by mouth ity of mg tablet 09:21: daily. [address] ergocalcife Yes Take by Uni vers rol, 8-15 mouth. ity of vitamin D2, 09:21: [place] (VITAMIN D Medical ORAL) Branch scopolamine Yes 1{patch Apply [...] by mouth ity of capsule 09:21: daily. [address] Branch budesonide- Yes 2{puff} Inhale 2 [...] Use 1 Uni vers (NASONEX) 8-15 } Clarissa in ity of 50 09:21: each [place] mcg/actuati 06 nostril. Medi jesus on nasal Branch spray clopidogreL Yes 75mg Take 75 mg Univers (PLAVIX) 75 8-15 by mouth ity of mg tablet 09:21: daily. [address] Branch ergocalcife Yes Take by Uni vers rol, 8-15 mouth. ity of vitamin D2, 09:21: [place] (VITAMIN D 06 Medical ORAL) Branch scopolamine Yes 1{patch Apply 1 Univers transdermal 8-15 } Patch to ity of 1 mg over 3 09:21: area(s) [place] as days patch 06 every 72 Medic al (seventy-t Branch wo) hours. venlafaxine Yes 150mg Take 150 U nivers XR 150 mg 8-15 mg by ity of 24 hr 09:21: mouth in [place] capsule 06 the Medical morning. Branch esomeprazol Yes 40mg Take 40 mg Univers e 40 mg 8-15 by mouth ity of capsule 09:21: daily. [address] Branch budesonide- Yes 2{puff} Inhale 2 [...] Use 1 Uni vers (NASONEX) 8-15 } [place]issa in ity of 50 09:21: each [place] mcg/actuati 06 nostril. Medi jesus on nasal Branch spray clopidogreL Yes 75mg Take 75 mg Univers (PLAVIX) 75 8-15 by mouth ity of mg tablet 09:21: daily. [place] [address] Medical Branch ergocalcife Yes Take by Uni [...] by mouth ity of capsule 09:21: daily. [address] Branch budesonide- Yes 2{puff} Inhale 2 [...] Use 1 Uni vers (NASONEX) 8-15 } [place] in ity of 50 09:21: each [place] mcg/actuati 06 nostril. Medi jesus on nasal Branch spray clopidogreL Yes 75mg Take 75 mg [facility] (PLAVIX) 75 8-15 by mouth ity of mg tablet 09:21: daily. [address] Branch ergocalcife Yes Take by Uni vers rol, 8-15 mouth. ity of vitamin D2, 09:21: [place] (VITAMIN D 06 Medical ORAL) Branch scopolamine 2021-0 Yes 1{patch Apply 1 [facility] transdermal 8-15 } Patch to ity of 1 mg over 3 09:21: area(s) [place] as days patch 06 every 72 Medic al (seventy-t Branch wo) hours. venlafaxine 2021-0 Yes 150mg Take 150 U nivers XR 150 mg 8-15 mg by ity of 24 hr 09:21: mouth in [place] capsule 06 the Medical morning. Branch nitroglycer 2021-[address] 0.4 U nivers in 8-15 mg under ity of (NITROSTAT) 09:21: the tongue [place] 0.4 mg 06 every 5 Medical sublingual (five) Branch tablet minutes as needed for Chest pain. mometasone 2021-0 Yes 1{spray Use 1 Uni vers (NASONEX) 8-15 } [place] in ity of 50 09:21: each [place] mcg/actuati 06 nostril. Medi jesus on nasal Branch spray ergocalcife 2021-0 Yes Take by Uni vers rol, 8-15 mouth. ity of vitamin D2, 09:21: [place] (VITAMIN D 06 Medical ORAL) Branch nitroglycer 2021-[address] 0.4 U nivers in 8-15 mg under ity of (NITROSTAT) 09:21: the tongue [place] 0.4 mg 06 every 5 Medical sublingual (five) Branch tablet minutes as needed for Chest pain. mometasone 2021-0 Yes 1{spray Use 1 Uni vers (NASONEX) 8-15 } [place] in ity of 50 09:21: each [place] mcg/actuati 06 nostril. Medi jesus on nasal Branch spray ergocalcife 2021-0 Yes Take by Uni vers rol, 8-15 mouth. ity of vitamin D2, 09:21: [place] (VITAMIN D 06 Medical ORAL) Branch nitroglycer 2021-[address] 0.4 U nivers in 8-15 mg under ity of (NITROSTAT) 09:21: the tongue [place] 0.4 mg 06 every 5 Medical sublingual (five) Branch tablet minutes as needed for Chest pain. mometasone 2021-0 Yes 1{spray Use 1 Uni vers (NASONEX) 8-15 } [place] in ity of 50 09:21: each [place] mcg/actuati 06 nostril. Medi jesus on nasal Branch spray ergocalcife 2021-0 Yes Take by Uni vers rol, 8-15 mouth. ity of vitamin D2, 09:21: [place] (VITAMIN D 06 Medical ORAL) Branch nitroglycer 2021-[address] 0.4 U nivers in 8-15 mg under ity of (NITROSTAT) 09:21: the tongue [place] 0.4 mg 06 every 5 Medical sublingual (five) Branch tablet minutes as needed for Chest pain. mometasone 2021-0 Yes 1{spray Use 1 Uni vers (NASONEX) 8-15 } [place] in ity of 50 09:21: each [place] mcg/actuati 06 nostril. Medi jesus on nasal Branch spray ergocalcife 2021-0 Yes Take by Uni vers rol, 8-15 mouth. ity of vitamin D2, 09:21: [place] (VITAMIN D 06 Medical ORAL) Branch venlafaxine 2021-0 Yes 150mg Take 150 U nivers XR 150 mg 8-09 mg by ity of 24 hr 11:15: mouth in [place] capsule 29 the Medical morning. Branch venlafaxine 2021-0 Yes 150mg Take 150 U nivers XR 150 mg 8-09 mg by ity of 24 hr 11:15: mouth in [place] capsule 29 the Medical morning. Branch nitroglycer 2021-[address] 0.4 U nivers in 8-09 mg under ity of (NITROSTAT) 11:11: the tongue [place] 0.4 mg 55 every 5 Medical sublingual (five) Branch tablet minutes as needed for Chest pain. mometasone 2021-0 Yes 1{spray Use 1 Uni vers (NASONEX) 8-09 } [place] in ity of 50 11:11: each [place] mcg/actuati 55 nostril. Medi jesus on nasal Branch spray nitroglycer 2021-[address] 0.4 U nivers in 8-09 mg under ity of (NITROSTAT) 11:11: the tongue [place] 0.4 mg 55 every 5 Medical sublingual (five) Branch tablet minutes as needed for Chest pain. mometasone 2-0 Yes 1{spray Use 1 Uni vers (NASONEX) 8-09 } [place] in ity of 50 11:11: each [place] mcg/actuati 55 nostril. Medi jesus on nasal Branch spray esomeprazol 0 Yes 40mg Take 40 mg Univers e 40 mg 809 by mouth ity of capsule 11:11: daily. [address] budesonide- Yes 2{puff} Inhale 2 Univers formoteroL 8-09 Puffs 2 ity of 160-4.5 11:11: (two) [place] mcg/actuati 54 times Medical on inhaler daily. Branch clopidogreL Yes 75mg Take 75 mg Univers (PLAVIX) 75 809 by mouth ity of mg tablet 11:11: daily. [address] ergocalcife Yes Take by Uni vers rol, 01-29 mouth. ity of vitamin D2, 11:11: [place] (VITAMIN D 54 Medical ORAL) [place] scopolamine Yes 1{patch Apply 1 Univers transdermal 01-29 } Patch to ity of 1 mg over 3 11:11: area(s) [place] as days patch 54 every 72 Medic al (seventy-t Branch wo) hours. esomeprazol Yes 40mg Take 40 mg Univers e 40 mg 8 by mouth ity of capsule 11:11: daily. [address] budesonide- Yes 2{puff} Inhale 2 Univers formoteroL 8- Puffs 2 ity of 160-4.5 11:11: (two) [place] mcg/actuati 54 times Medical on inhaler daily. Branch clopidogreL Yes 75mg Take 75 mg Univers (PLAVIX) 75 8-09 by mouth ity of mg tablet 11:11: daily. [address] ergocalcife Yes Take by Uni vers rol, 01-29 mouth. ity of vitamin D2, 11:11: [place] (VITAMIN D 54 Medical ORAL) [place] scopolamine Yes 1{patch Apply 1 Univers transdermal 01-29 } Patch to ity of 1 mg over 3 11:11: area(s) [place] as days patch 54 every 72 Medic al (seventy-t Branch wo) hours. Vitamin B12 Vitamin B12 No 1000ug Common (Cyanocobal (Cyanocobal 8-09 S pirit nayak) nayak) 00:00: - [facility] 00 [facility] Vitamin B12 Vitamin B12 2021-0 No 1000ug Common (Cyanocobal (Cyanocobal 8-09 S pirit nayak) nayak) 00:00: - [facility] 00 [facility] Vitamin B12 Vitamin B12 2021-0 No 1000ug Common (Cyanocobal (Cyanocobal 8-09 S pirit nayak) nayak) 00:00: - [facility] 00 [facility] Vitamin B12 Vitamin B12 2021-0 No 1000ug Common (Cyanocobal (Cyanocobal 8-09 S pirit nayak) nayak) 00:00: - [facility] 00 [facility] Vitamin B12 Vitamin B12 2021-0 No 1000ug Common (Cyanocobal (Cyanocobal 8-09 S pirit nayak) nayak) 00:00: - [facility] 00 [facility] Vitamin B12 Vitamin B12 2021-0 No 1000ug Common (Cyanocobal (Cyanocobal 8-09 S pirit nayak) nayak) 00:00: - [facility] 00 [facility] Vitamin B12 Vitamin B12 2021-0 No 1000ug Common (Cyanocobal (Cyanocobal 8-09 S pirit nayak) nayak) 00:00: - [facility] 00 [facility] Vitamin B12 Vitamin B12 2021-0 No 1000ug Common (Cyanocobal (Cyanocobal 8-09 S pirit nayak) nayak) 00:00: - [facility] 00 [facility] Vitamin B12 Vitamin B12 2021-0 No 1000ug Common (Cyanocobal (Cyanocobal 8-09 S pirit nayak) nayak) 00:00: - [facility] 00 [facility] Vitamin B12 Vitamin B12 2021-0 No 1000ug Common (Cyanocobal (Cyanocobal 8-09 S pirit nayak) nayak) 00:00: - [facility] 00 [facility] Vitamin B12 Vitamin B12 2021-0 No 1000ug Common (Cyanocobal (Cyanocobal 8-09 S pirit nayak) nayak) 00:00: - [facility] 00 [facility] Vitamin B12 Vitamin B12 2021-0 No 1000ug Common (Cyanocobal (Cyanocobal 8-09 S pirit nayak) nayak) 00:00: - [facility] 00 [facility] ondansetron 2021-0 Yes 4mg 4 mg, Slow Univers (ZOFRAN 8-01 IV Push, ity of (PF)) 13:05: PRN, 1 [place] injection 4 10 dose, Medical mg Starting Branch on Fri01/21/22 at 0805, Until Discontinu ed, Routine, Nausea and Vomiting (N/V), PACU ondansetron 2021- No 4mg 4 mg, Slow Univers (ZOFRAN 01-21 IV Push, ity of (PF)) 13:05: 16:12 PRN, 1 [place] injection 4 10 :25 dose, Medical mg Starting Branch on Fri01/21/22 at 0805, Until Fri01/21/22 at 1112, Routine, Nausea and Vomiting (N/V), PACU bupivacaine 2021- No PRN, Unive rs (preserv 01-21 Starting ity of free) 12:40: 12:42 on Fri [place] (SENSORCAIN 00 :04 01/21/22 at Med ical E MPF) 0.25 0740, Branch % (2.5 Until Mon mg/mL) 01/21/22 at injection 0742, Routine, Intra-op triamcinolo 0 Yes PRN, Univer s ne 01-21 Starting ity of acetonide 12:31: on [facility] (KENALOG) 00 01/21/22 at Medic al injection 0731, Branch Until Discontinu ed, Routine, Intra-op iohexoL 2021- No PRN, Univers (OMNIPAQUE 01-21 Starting ity of 300-50 mL)) 12:31: 12:42 on [facility] Jo[place] as injection 00 :04 01/21/22 at Medic al 0731, Branch Until Fri01/21/22 at 0742, Routine, Intra-op triamcinolo 2021- No PRN, Unive rs ne 01-21 Starting ity of acetonide 12:31: 16:12 on [facility] (KENALOG) 00 :25 01/21/22 at Medic al injection 0731, Branch Until Fri01/21/22 at 1112, Routine, Intra-op lidocaine 2021-0 Yes PRN, Univers 1% 01-21 Starting ity of (XYLOCAINE) 12:30: [place] 10 mg/mL (1 00 8/1/22 at Med ical %) 0730, Branch injection Until Discontinu ed, Routine, Intra-op sodium 2021-0 2021- No 30mL 30 mL, Univers citrate-cit 01-21 Oral, ONCE i ty of jaime acid 12:30: 12:10 NOW, 1 [place] (BICITRA) 00 :00 dose, On Medica l 500-334 Fri01/21/22 Branch mg/5 mL at 0730, solution 30 Routine, mL DSU Pre-op lidocaine 2021- No PRN, Univers 1% 01-21 Starting ity of (XYLOCAINE) 12:30: 16:12 on Mon [place] as 10 mg/mL (1 00 :25 01/21/22 at Med ical %) 0730, Branch injection Until Fri01/21/22 at 1112, Routine, Intra-op sodium 2021- No 30mL 30 mL, Univers citrate-cit 01-21 Oral, ONCE i ty of jaime acid 12:30: 12:10 NOW, 1 [place] (BICITRA) 00 :00 dose, On Medica l 500-334 Fri01/21/22 Branch mg/5 mL at 0730, solution 30 Routine, mL DSU Pre-op lactated 2021- No 1000mL at 42 Unive rs ringers IV 01-21 mL/hr, ity of infusion 12:15: 12:09 1,000 mL, [place] as 1,000 mL 00 :00 IV Medical Infusion, Branch ONCE, 1 dose, On Fri01/21/22 at 0715, Routine, DSU Pre-op lactated 0 2021- No [facility] mL/hr, ity of infusion 12:15: 12:09 1,000 mL, [place] as 1,000 mL 00 :00 IV Medical Infusion, Branch ONCE, 1 dose, On Fri01/21/22 at 0715, Routine, DSU Pre-op esomeprazol Yes 40mg Take 40 mg Univers e 40 mg 01-21 by mouth ity of capsule 09:12: daily. [address] budesonide- Yes 2{puff} Inhale 2 Univers [...] Use 1 Uni vers (NASONEX) 01-21 } [place] in ity of 50 09:12: each [place] mcg/actuati 24 nostril. Medi jesus on nasal Branch spray clopidogreL Yes 75mg Take 75 mg Univers (PLAVIX) 75 01-21 by mouth ity of mg tablet 09:12: daily. [place] [address] Medical Branch ergocalcife Yes Take by Uni vers rol, 01-21 mouth. ity of vitamin D2, 09:12: [place] (VITAMIN D 24 Medical ORAL) Branch scopolamine Yes 1{patch Apply 1 Univers transdermal 01-21 } Patch to ity of 1 mg over 3 09:12: area(s) [place] as days patch 24 every 72 Medic al (seventy-t Branch wo) hours. esomeprazol Yes 40mg Take 40 mg Univers e 40 mg 01-21 by mouth ity of capsule 09:12: daily. [place] [address] Medical Branch budesonide- Yes 2{puff} Inhale 2 Univers formoteroL 01-21 Puffs 2 ity of 160-4.5 09:12: (two) [place] mcg/actuati 24 times Medical on inhaler daily. Branch nitroglycer [address] 0.4 U nivers in 8-01 mg under ity of (NITROSTAT) 09:12: the tongue [place] 0.4 mg 24 every 5 Medical sublingual (five) Branch tablet minutes as needed for Chest pain. mometasone Yes 1{spray Use 1 Uni vers (NASONEX) 01-21 } [place] in ity of 50 09:12: each [place] mcg/actuati 24 nostril. Medi jesus on nasal Branch spray clopidogreL Yes 75mg Take 75 mg Univers (PLAVIX) 75 01-21 by mouth ity of mg tablet 09:12: daily. [address] ergocalcife Yes Take by Uni vers rol, 01-21 mouth. ity of vitamin D2, 09:12: [place] (VITAMIN D 24 Medical ORAL) [place] scopolamine Yes 1{patch Apply 1 Univers transdermal 01-21 } Patch to ity of 1 mg over 3 09:12: area(s) [place] as days patch 24 every 72 Medic al (seventy-t Branch wo) hours. esomeprazol Yes 40mg Take 40 mg Univers e 40 mg 01-21 by mouth ity of capsule 09:12: daily. [address] budesonide- Yes 2{puff} Inhale 2 Univers [...] Use 1 Uni vers (NASONEX) 01-21 } [place] in ity of 50 09:12: each [place] mcg/actuati 24 nostril. Medi jesus on nasal Branch spray clopidogreL Yes 75mg Take 75 mg Univers (PLAVIX) 75 01-21 by mouth ity of mg tablet 09:12: daily. [address] ergocalcife Yes Take by Uni vers rol, 01-21 mouth. ity of vitamin D2, 09:12: [place] (VITAMIN D 24 Medical ORAL) Branch scopolamine Yes 1{patch Apply 1 Univers transdermal 01-21 } Patch to ity of 1 mg over 3 09:12: area(s) [place] as days patch 24 every 72 Medic al (seventy-t Branch wo) hours. Vitamin B12 Vitamin B12 No 1000ug Common (Cyanocobal (Cyanocobal 7-28 S pirit nayak) nayak) 00:00: - [facility] 00 [facility] Vitamin B12 Vitamin B12 2022-0 No 1000ug Common (Cyanocobal (Cyanocobal 7-28 S pirit nayak) nayak) 00:00: - [facility] 00 [facility] Vitamin B12 Vitamin B12 2022-0 No 1000ug Common (Cyanocobal (Cyanocobal 7-28 S pirit nayak) nayak) 00:00: - [facility] 00 [facility] Vitamin B12 Vitamin B12 2022-0 No 1000ug Common (Cyanocobal (Cyanocobal 7-28 S pirit nayak) nayak) 00:00: - [facility] 00 [facility] Vitamin B12 Vitamin B12 2022-0 No 1000ug Common (Cyanocobal (Cyanocobal 7-28 S pirit nayak) nayak) 00:00: - [facility] 00 [facility] Vitamin B12 Vitamin B12 2022-0 No 1000ug Common (Cyanocobal (Cyanocobal 7-28 S pirit nayak) nayak) 00:00: - [facility] 00 [facility] Vitamin B12 Vitamin B12 2022-0 No 1000ug Common (Cyanocobal (Cyanocobal 7-28 S pirit nayak) nayak) 00:00: - [facility] 00 [facility] Vitamin B12 Vitamin B12 2022-0 No 1000ug Common (Cyanocobal (Cyanocobal 7-28 S pirit nayak) nayak) 00:00: - [facility] 00 [facility] Vitamin B12 Vitamin B12 2-0 No 1000ug Common (Cyanocobal (Cyanocobal 7-28 S pirit nayak) nayak) 00:00: - [facility] 00 [facility] Vitamin B12 Vitamin B12 2022-0 No 1000ug Common (Cyanocobal (Cyanocobal 7-28 S pirit nayak) nayak) 00:00: - [facility] 00 [facility] Vitamin B12 Vitamin B12 2022-0 No 1000ug Common (Cyanocobal (Cyanocobal 7-28 S pirit nayak) nayak) 00:00: - [facility] 00 [facility] Vitamin B12 Vitamin B12 2022-0 No 1000ug Common (Cyanocobal (Cyanocobal 7-28 S pirit nayak) nayak) 00:00: - [facility] 00 [facility] Vitamin B12 Vitamin B12 2022-0 No 1000ug Common (Cyanocobal (Cyanocobal 7-28 S pirit nayak) nayak) 00:00: - [facility] [place] Yes 2{puff} Inhale 2 Univers formoteroL 7-27 [...] Use 1 Uni vers (NASONEX) 01-16 } Clarissa in ity of 50 10:32: each [place] mcg/actuati 27 nostril. Medi jesus on nasal Branch spray clopidogreL Yes 75mg Take 75 mg Univers (PLAVIX) 75 01-16 by mouth ity of mg tablet 10:32: daily. [address] Branch ergocalcife Yes Take by Uni vers rol, 01-16 mouth. ity of vitamin D2, 10:32: [place] (VITAMIN D 27 Medical ORAL) Branch scopolamine Yes 1{patch Apply 1 Univers transdermal 01-16 } Patch to ity of 1 mg over 3 10:32: area(s) [place] as days patch 27 every 72 Medic al (seventy-t Branch wo) hours. budesonide- Yes 2{puff} Inhale 2 Univers formoteroL 7-27 [...] Use 1 Uni vers (NASONEX) 01-16 } [place] in ity of 50 10:32: each [place] mcg/actuati 27 nostril. Medi jesus on nasal Branch spray clopidogreL Yes 75mg Take 75 mg Univers (PLAVIX) 75 7-27 by mouth ity of mg tablet 10:32: daily. [address] ergocalcife Yes Take by Uni vers rol, 01-16 mouth. ity of vitamin D2, 10:32: [place] (VITAMIN D Medical ORAL) [place] scopolamine Yes 1{patch Apply 1 Univers transdermal 01-16 } Patch to ity of 1 mg over 3 10:32: area(s) [place] as days patch 27 every 72 Medic al (seventy-t Branch wo) hours. bupivacaine Yes PRN, Univer s (preserv 01-07 Starting ity of free) 14:15: on [facility] (SENSORCAIN 00 01/07/22 at [place] dical E MPF) 0.25 0915, Branch % (2.5 Until mg/mL) Discontinu injection ed, Routine, Intra-op bupivacaine 2021- No PRN, Unive rs (preserv 01-07 Starting ity of free) 14:15: 16:20 on [facility] (SENSORCAIN 00 :12 01/07/22 at [place] dical E MPF) 0.25 0915, Branch % (2.5 Until Mon mg/mL) 01/07/22 at injection 1120, Routine, Intra-op triamcinolo Yes PRN, Univer s ne 01-07 Starting ity of acetonide 13:22: on [facility] (KENALOG) 00 01/07/22 at [facility] injection 0822, Branch Until Discontinu ed, Routine, Intra-op triamcinolo 2021- No PRN, Unive rs ne 01-07 Starting ity of acetonide 13:22: 16:20 on [facility] (KENALOG) 00 :12 01/07/22 at [facility] injection 0822, Branch Until 01/07/22 at 1120, Routine, Intra-op lidocaine Yes PRN, Univers 1% 01-07 Starting ity of (XYLOCAINE) 13:21: on [facility] [place] 10 mg/mL (1 00 01/07/22 at [place] dical %) 0821, Branch injection Until Discontinu ed, Routine, Intra-op lidocaine 2021- No PRN, Univers 1% 01-07 Starting ity of (XYLOCAINE) 13:21: 16:20 on Fri [place] as 10 mg/mL (1 00 :12 01/07/22 at [place] dical %) 0821, Branch injection Until Fri01/07/22 at 1120, Routine, Intra-op lactated 0 2021- No 1000mL at 42 Unive rs ringers IV 7-18 07-18 mL/hr, ity of infusion 12:00: 12:14 1,000 mL, [place] as 1,000 mL 00 :00 IV Medical Infusion, Branch ONCE, 1 dose, On Fri01/07/22 at 0700, Routine, DSU Pre-op lactated 2021-0 2021- No 1000mL at 42 Unive rs ringers IV 7-18 07-18 mL/hr, ity of infusion 12:00: 12:14 1,000 mL, [place] as 1,000 mL 00 :00 IV Medical Infusion, Branch ONCE, 1 dose, On Fri01/07/22 at 0700, Routine, DSU Pre-op esomeprazol Yes 40mg Take 40 mg Univers e 40 mg 7-18 by mouth ity of capsule 09:20: daily. [address] budesonide- Yes 2{puff} Inhale 2 Univers [...] Yes 1{spray Use 1 Uni vers (NASONEX) -18 } [place]issa in ity of 50 09:20: each [place] mcg/actuati 10 nostril. Medi jesus on nasal Branch spray clopidogreL Yes 75mg Take 75 mg Univers (PLAVIX) 75 -18 by mouth ity of mg tablet 09:20: daily. [address] ergocalcife Yes Take by Uni vers rol, 7-18 mouth. ity of vitamin D2, 09:20: [place] (VITAMIN D 10 Medical ORAL) Branch scopolamine Yes 1{patch Apply 1 Univers transdermal 7-18 } Patch to ity of 1 mg over 3 09:20: area(s) [place] as days patch 10 every 72 Medic al (seventy-t Branch wo) hours. esomeprazol 0 Yes 40mg Take 40 mg Univers e 40 mg 7-18 by mouth ity of capsule 09:20: daily. [address] budesonide- Yes 2{puff} Inhale 2 Univers [...] Use 1 Uni vers (NASONEX) 7-18 } Clarissa in ity of 50 09:20: each [place] mcg/actuati 10 nostril. Medi jesus on nasal Branch spray clopidogreL Yes 75mg Take 75 mg Univers (PLAVIX) 75 7-18 by mouth ity of mg tablet 09:20: daily. [address] ergocalcife Yes Take by Uni vers rol, 7-18 mouth. ity of vitamin D2, 09:20: [place] (VITAMIN D 10 Medical ORAL) [place] scopolamine Yes 1{patch Apply 1 Univers transdermal 7-18 } Patch to ity of 1 mg over 3 09:20: area(s) [place] as days patch 10 every 72 Medic al (seventy-t Branch wo) hours. esomeprazol 0 Yes 40mg Take 40 mg Univers e 40 mg 7-18 by mouth ity of capsule 09:20: daily. [address] budesonide- Yes 2{puff} Inhale 2 Univers formoteroL 7-18 Puffs 2 ity of 160-4.5 09:20: (two) [place] mcg/actuati 10 times Medical on inhaler daily. Branch nitroglycer [address] 0.4 U nivers in 7-18 mg under ity of (NITROSTAT) 09:20: the tongue [place] 0.4 mg 10 every 5 Medical sublingual (five) Branch tablet minutes as needed for Chest pain. mometasone Yes 1{spray Use 1 Uni vers (NASONEX) 7-18 } [place] in ity of 50 09:20: each [place] mcg/actuati 10 nostril. Medi jesus on nasal Branch spray clopidogreL Yes 75mg Take 75 mg Univers (PLAVIX) 75 7-18 by mouth ity of mg tablet 09:20: daily. [address] Branch ergocalcife Yes Take by Uni vers rol, 7-18 mouth. ity of vitamin D2, 09:20: [place] (VITAMIN D 10 Medical ORAL) Branch scopolamine Yes 1{patch Apply 1 Univers transdermal 7-18 } Patch to ity of 1 mg over 3 09:20: area(s) [place] as days patch 10 every 72 Medic al (seventy-t Branch wo) hours. esomeprazol Yes 40mg Take 40 mg Univers e 40 mg 7-18 by mouth ity of capsule 09:20: daily. [address] esomeprazol Yes 40mg Take 40 mg Univers e 40 mg 7-18 by mouth ity of capsule 09:20: daily. [address] simvastatin Yes 40mg Take 40 mg Univers 40 mg 7-17 by mouth ity of tablet 00:00: every [place] 00 evening. [facility] simvastatin Yes 40mg Take 40 mg Univers 40 mg 7-17 by mouth ity of tablet 00:00: every [place] 00 evening. [facility] simvastatin Yes 40mg Take 40 mg Univers 40 mg 7-17 by mouth ity of tablet 00:00: every [place] 00 evening. [facility] simvastatin Yes 40mg Take 40 mg Univers 40 mg 7-17 by mouth ity of tablet 00:00: every [place] 00 evening. [facility] simvastatin 0 Yes 40mg Take 40 mg Univers 40 mg 7-17 by mouth ity of tablet 00:00: every [place] 00 evening. [facility] simvastatin 0 Yes 40mg Take 40 mg Univers 40 mg 7-17 by mouth ity of tablet 00:00: every [place] 00 evening. Medical Branch simvastatin 2022-0 Yes 40mg Take 40 mg Univers 40 mg 7-17 by mouth ity of tablet 00:00: every [place] 00 evening. Medical Branch simvastatin 2022-0 Yes 40mg Take 40 mg Univers 40 mg 7-17 by mouth ity of tablet 00:00: every [place] 00 evening. Medical Branch simvastatin 2022-0 Yes 40mg Take 40 mg Univers 40 mg 7-17 by mouth ity of tablet 00:00: every [place] 00 evening. Medical Branch simvastatin 2022-0 Yes 40mg Take 40 mg Univers 40 mg 7-17 by mouth ity of tablet 00:00: every [place] 00 evening. Medical Branch simvastatin 2022-0 Yes 40mg Take 40 mg Univers 40 mg 7-17 by mouth ity of tablet 00:00: every [place] 00 evening. Medical Branch simvastatin 2022-0 Yes 40mg Take 40 mg Univers 40 mg 7-17 by mouth ity of tablet 00:00: every [place] 00 evening. Medical Branch simvastatin 2022-0 Yes 40mg Take 40 mg Univers 40 mg 7-17 by mouth ity of tablet 00:00: every [place] evening. Medical Branch simvastatin 2022-0 Yes 40mg Take 40 mg Univers 40 mg 7-17 by mouth ity of tablet 00:00: every [place] evening. Medical Branch simvastatin 2022-0 Yes 40mg Take 40 mg Univers 40 mg 7-17 by mouth ity of tablet 00:00: every [place] evening. Medical Branch simvastatin 2022-0 Yes 40mg Take 40 mg Univers 40 mg 7-17 by mouth ity of tablet 00:00: every [place] evening. Medical Branch simvastatin 2022-0 Yes 40mg Take 40 mg Univers 40 mg 7-17 by mouth ity of tablet 00:00: every [place] evening. Medical Branch simvastatin 2022-0 Yes 40mg Take 40 mg Univers 40 mg 7-17 by mouth ity of tablet 00:00: every [place] evening. [facility] Vitamin B12 Vitamin B12 0 No 1000ug Common (Cyanocobal (Cyanocobal 7-14 S pirit nayak) nayak) 00:00: - CHI 00 [facility] Vitamin B12 Vitamin B12 2021-0 No 1000ug Common (Cyanocobal (Cyanocobal 7-14 S pirit nayak) nayak) 00:00: - CHI 00 [facility] Vitamin B12 Vitamin B12 2022-0 No 1000ug Common (Cyanocobal (Cyanocobal 7-14 S pirit nayak) nayak) 00:00: - CHI 00 [facility] Vitamin B12 Vitamin B12 2-0 No 1000ug Common (Cyanocobal (Cyanocobal 7-14 S pirit nayak) nayak) 00:00: - CHI 00 [facility] Vitamin B12 Vitamin B12 2-0 No 1000ug Common (Cyanocobal (Cyanocobal 7-14 S pirit nayak) nayak) 00:00: - CHI 00 [facility] Vitamin B12 Vitamin B12 2-0 No 1000ug Common (Cyanocobal (Cyanocobal 7-14 S pirit nayak) nayak) 00:00: - CHI 00 [facility] Vitamin B12 Vitamin B12 2021-0 No 1000ug Common (Cyanocobal (Cyanocobal 7-14 S pirit nayak) nayak) 00:00: - CHI 00 [facility] Vitamin B12 Vitamin B12 2-0 No 1000ug Common (Cyanocobal (Cyanocobal 7-14 S pirit nayak) nayak) 00:00: - CHI 00 [facility] Vitamin B12 Vitamin B12 2-0 No 1000ug Common (Cyanocobal (Cyanocobal 7-14 S pirit nayak) nayak) 00:00: - CHI 00 [facility] Vitamin B12 Vitamin B12 2-0 No 1000ug Common (Cyanocobal (Cyanocobal 7-14 S pirit nayak) nayak) 00:00: - CHI 00 [facility] Vitamin B12 Vitamin B12 2-0 No 1000ug Common (Cyanocobal (Cyanocobal 7-14 S pirit nayak) nayak) 00:00: - CHI 00 [facility] Vitamin B12 Vitamin B12 2022-0 No 1000ug Common (Cyanocobal (Cyanocobal 7-14 S pirit nayak) nayak) 00:00: - CHI 00 [facility] Vitamin B12 Vitamin B12 2022-0 No 1000ug Common (Cyanocobal (Cyanocobal 7-14 S pirit nayak) nayak) 00:00: - CHI 00 [facility] Vitamin B12 Vitamin B12 2022-0 No 1000ug Common (Cyanocobal (Cyanocobal 7-14 S pirit nayak) nayak) 00:00: - CHI 00 [facility] Vitamin B12 Vitamin B12 2022-0 No 1000ug Common (Cyanocobal (Cyanocobal 7-14 S pirit nayak) nayak) 00:00: - CHI 00 [facility] Vitamin B12 Vitamin B12 No 1000ug Common (Cyanocobal (Cyanocobal 7-14 S pirit nayak) nayak) 00:00: - CHI 00 [facility] scopolamine Yes 1{patch Apply 1 [facility] transdermal [...] by mouth ity of capsule 16:47: daily. [address] budesonide- Yes 2{puff} Inhale 2 Univers [...] Use 1 Uni vers (NASONEX) 7-12 } Clarissa in ity of 50 16:47: each [place] mcg/actuati 46 nostril. Medi jesus on nasal Branch spray clopidogreL Yes 75mg Take 75 mg Univers (PLAVIX) 75 7-12 by mouth ity of mg tablet 16:47: daily. [address] Branch ergocalcife Yes Take by Uni vers rol, 7-12 mouth. ity of vitamin D2, 16:47: [place] (VITAMIN D 46 Medical ORAL) Branch esomeprazol Yes 40mg Take 40 mg Univers e 40 mg 7-12 by mouth ity of capsule 16:47: daily. [address] Branch budesonide- Yes 2{puff} Inhale 2 [...] Use 1 Uni vers (NASONEX) 7-12 } Clarissa in ity of 50 16:47: each [place] mcg/actuati 46 nostril. Medi jesus on nasal Branch spray clopidogreL Yes 75mg Take 75 mg [facility] (PLAVIX) 75 7-12 by mouth ity of mg tablet 16:47: daily. [address] ergocalcife Yes Take by Uni vers rol, 7-12 mouth. ity of vitamin D2, 16:47: [place] (VITAMIN D 46 Medical ORAL) Branch scopolamine No 1mg 1 mg over 3 6-23 over 3 days 00:00: days transdermal 00 patch Azithromyci Azithromyci 2021- No QD Azithromyc n 250 MG n 250 MG 12-13 in 250 MG 00:00: 00:00 00 :00 ondansetron 2021-0 2021- No 1{tbl} Take 1 U nivers [...] No Unknown 12-11 00:00: 00 Azithromyci Azithromyci 2021-0 2021- No 2{table Azithromyc n 500 MG n 500 MG 12-10-21 t} in 500 MG 00:00: 00:00 00 :00 Azithromyci Azithromyci 2-0 2022- No 2{table Azithromyc n 500 MG n 500 MG 6-10 12- t} in 500 MG 00:00: 00:00 00 :00 Azithromyci Azithromyci 2022-0 2022- No 2{table Azithromyc n 500 MG n 500 MG 6-12-11 t} in 500 MG 00:00: 00:00 00 [...] No Unknown 6-15 00:00: 00 Scopolamine Scopolamine 2-0 No Scopolamin 1 MG/3DAYS 1 MG/3DAYS 6 e 1 00:00: MG/3DAYS 00 Scopolamine Scopolamine 2-0 No Scopolamin 1 MG/3DAYS 1 MG/3DAYS 6- e 1 00:00: MG/3DAYS 00 Scopolamine Scopolamine 2-0 No Scopolamin 1 MG/3DAYS 1 MG/3DAYS 6-14 e 1 00:00: MG/3DAYS 00 Scopolamine Scopolamine 2-0 No Scopolamin 1 MG/3DAYS 1 MG/3DAYS 614 e 1 00:00: MG/3DAYS 00 Scopolamine Scopolamine 2-0 No Scopolamin 1 MG/3DAYS 1 MG/3DAYS 6 e 1 00:00: MG/3DAYS 00 Scopolamine Scopolamine 2-0 No Scopolamin 1 MG/3DAYS 1 MG/3DAYS 614 e 1 00:00: MG/3DAYS 00 Scopolamine Scopolamine 2022-0 No Scopolamin 1 MG/3DAYS 1 MG/3DAYS 12-04 e 1 00:00: MG/3DAYS 00 Scopolamine Scopolamine 2022-0 No Scopolamin 1 MG/3DAYS 1 MG/3DAYS 12-04 e 1 00:00: MG/3DAYS 00 Scopolamine Scopolamine 2022-0 No Scopolamin 1 MG/3DAYS 1 MG/3DAYS 12-04 e 1 00:00: MG/3DAYS 00 Scopolamine Scopolamine 2022-0 No Scopolamin 1 MG/3DAYS 1 MG/3DAYS 12-04 e 1 00:00: MG/3DAYS 00 Scopolamine Scopolamine 2022-0 No Scopolamin 1 MG/3DAYS 1 MG/3DAYS 12-04 e 1 00:00: MG/3DAYS 00 Scopolamine Scopolamine 2022-0 No Scopolamin 1 MG/3DAYS 1 MG/3DAYS - e 1 00:00: MG/3DAYS 00 Scopolamine Scopolamine 2022-0 No Scopolamin 1 MG/3DAYS 1 MG/3DAYS 12-04 e 1 00:00: MG/3DAYS 00 Scopolamine Scopolamine 2022-0 No Scopolamin 1 MG/3DAYS 1 MG/3DAYS 12-04 e 1 00:00: MG/3DAYS 00 Scopolamine Scopolamine 2022-0 No Scopolamin 1 MG/3DAYS 1 MG/3DAYS 6 e 1 00:00: MG/3DAYS 00 Scopolamine Scopolamine 2022-0 No Scopolamin 1 MG/3DAYS 1 MG/3DAYS 12-04 e 1 00:00: MG/3DAYS 00 Scopolamine Scopolamine 2022-0 No Scopolamin 1 MG/3DAYS 1 MG/3DAYS 6 e 1 00:00: MG/3DAYS 00 Scopolamine Scopolamine 2022-0 No Scopolamin 1 MG/3DAYS 1 MG/3DAYS 6 e 1 00:00: MG/3DAYS 00 Scopolamine Scopolamine 2022-0 No Scopolamin 1 MG/3DAYS 1 MG/3DAYS -14 e 1 00:00: MG/3DAYS 00 Scopolamine Scopolamine 2-0 No Scopolamin 1 MG/3DAYS 1 MG/3DAYS 6-14 e 1 00:00: MG/3DAYS 00 Scopolamine Scopolamine 2-0 No Scopolamin 1 MG/3DAYS 1 MG/3DAYS 6-14 e 1 00:00: MG/3DAYS 00 Vitamin B12 Vitamin B12 2-0 No 1000ug Common (Cyanocobal (Cyanocobal 6-02 S pirit nayak) nayak) 00:00: - CHI 00 [facility] Vitamin B12 Vitamin B12 2-0 No 1000ug Common (Cyanocobal (Cyanocobal 6-02 S pirit nayak) nayak) 00:00: - CHI 00 [facility] Vitamin B12 Vitamin B12 2-0 No 1000ug Common (Cyanocobal (Cyanocobal 6-02 S pirit nayak) nayak) 00:00: - CHI 00 [facility] Vitamin B12 Vitamin B12 2-0 No 1000ug Common (Cyanocobal (Cyanocobal 6-02 S pirit nayak) nayak) 00:00: - CHI 00 [facility] Vitamin B12 Vitamin B12 2-0 No 1000ug Common (Cyanocobal (Cyanocobal 6-02 S pirit nayak) nayak) 00:00: - CHI 00 [facility] Vitamin B12 Vitamin B12 2-0 No 1000ug Common (Cyanocobal (Cyanocobal 6-02 S pirit nayak) nayak) 00:00: - CHI 00 [facility] Vitamin B12 Vitamin B12 2-0 No 1000ug Common (Cyanocobal (Cyanocobal 6-02 S pirit nayak) nayak) 00:00: - CHI 00 [facility] Vitamin B12 Vitamin B12 2022-0 No 1000ug Common (Cyanocobal (Cyanocobal 6-02 S pirit nayak) nayak) 00:00: - CHI 00 [facility] Vitamin B12 Vitamin B12 2022-0 No 1000ug Common (Cyanocobal (Cyanocobal 6-02 S pirit nayak) nayak) 00:00: - CHI 00 [facility] Vitamin B12 Vitamin B12 2022-0 No 1000ug Common (Cyanocobal (Cyanocobal 6-02 S pirit nayak) nayak) 00:00: - CHI 00 [facility] Vitamin B12 Vitamin B12 2022-0 No 1000ug Common (Cyanocobal (Cyanocobal 6-02 S pirit nayak) nayak) 00:00: - CHI 00 [facility] Vitamin B12 Vitamin B12 2022-0 No 1000ug Common (Cyanocobal (Cyanocobal 6-02 S pirit nayak) nayak) 00:00: - CHI 00 [facility] Vitamin B12 Vitamin B12 2022-0 No 1000ug Common (Cyanocobal (Cyanocobal 6-02 S pirit nayak) nayak) 00:00: - CHI 00 [facility] Vitamin B12 Vitamin B12 2022-0 No 1000ug Common (Cyanocobal (Cyanocobal 6-02 S pirit nayak) nayak) 00:00: - CHI 00 [facility] Vitamin B12 Vitamin B12 2-0 No 1000ug Common (Cyanocobal (Cyanocobal 6-02 S pirit nayak) nayak) 00:00: - CHI 00 [facility] Vitamin B12 Vitamin B12 2-0 No 1000ug Common (Cyanocobal (Cyanocobal 6-02 S pirit nayak) nayak) 00:00: - CHI 00 [facility] Vitamin B12 Vitamin B12 2-0 No 1000ug Common (Cyanocobal (Cyanocobal 6-02 S pirit nayak) nayak) 00:00: - CHI 00 [facility] Vitamin B12 Vitamin B12 2-0 No 1000ug Common (Cyanocobal (Cyanocobal 6-02 S pirit nayak) nayak) 00:00: - CHI 00 [facility] Vitamin B12 Vitamin B12 2-0 No 1000ug Common (Cyanocobal (Cyanocobal 6-02 S pirit nayak) nayak) 00:00: - CHI 00 [facility] Vitamin B12 Vitamin B12 2022-0 No 1000ug Common (Cyanocobal (Cyanocobal 6-02 S pirit nayak) nayak) 00:00: - CHI 00 [facility] Vitamin B12 Vitamin B12 2022-0 No 1000ug Common (Cyanocobal (Cyanocobal 6-02 S pirit nayak) nayak) 00:00: - CHI 00 [facility] Vitamin B12 Vitamin B12 2022-0 No 1000ug Common (Cyanocobal (Cyanocobal 6-02 S pirit nayak) nayak) 00:00: - CHI 00 [facility] LINZESS 145 2021-0 Yes 1{capsu Take 1 U nivers mcg capsule 5-27 le} capsule by it y of 00:00: mouth in [place] 00 the Medical morning. Branch LINZESS 145 2021-0 Yes 1{capsu Take 1 U nivers mcg capsule 5-27 le} capsule by it y of 00:00: mouth in [place] 00 the Medical morning. Branch LINZESS 145 2021-0 Yes 1{capsu Take 1 U nivers mcg capsule 5-27 le} capsule by it y of 00:00: mouth in [place] 00 the Medical morning. Branch LINZESS 145 2021-0 Yes 1{capsu Take 1 U nivers mcg capsule 5-27 le} capsule by it y of 00:00: mouth in [place] 00 the Medical morning. Branch LINZESS 145 2021-0 Yes 1{capsu Take 1 U nivers mcg capsule 5-27 le} capsule by it y of 00:00: mouth in [place] 00 the Medical morning. Branch LINZESS 145 2021-0 Yes 1{capsu Take 1 U nivers mcg capsule 5-27 le} capsule by it y of 00:00: mouth in [place] 00 the Medical morning. Branch LINZESS 145 0 Yes 1{capsu Take 1 U nivers mcg capsule 5-27 le} capsule by it y of 00:00: mouth in [place] 00 the Medical morning. Branch LINZESS 145 0 Yes 1{capsu Take 1 U nivers mcg capsule 5-27 le} capsule by it y of 00:00: mouth in [place] 00 the Medical morning. Branch LINZESS 145 2021-0 Yes 1{capsu Take 1 U nivers mcg capsule 5-27 le} capsule by it y of 00:00: mouth in [place] 00 the Medical morning. Branch LINZESS 145 2021-0 Yes 1{capsu Take 1 U nivers mcg capsule 5-27 le} capsule by it y of 00:00: mouth in [place] 00 the Medical morning. Branch LINZESS 145 2021-0 Yes 1{capsu Take 1 U nivers mcg capsule 5-27 le} capsule by it y of 00:00: mouth in [place] 00 the Medical morning. Branch LINZESS 145 2021-0 Yes 1{capsu Take 1 U nivers mcg capsule 5-27 le} capsule by it y of 00:00: mouth in [place] 00 the Medical morning. Branch LINZESS 145 2021-0 Yes 1{capsu Take 1 U nivers mcg capsule 5-27 le} capsule by it y of 00:00: mouth in [place] 00 the Medical morning. Branch LINZESS 145 2021-0 Yes 1{capsu Take 1 U nivers mcg capsule 5-27 le} capsule by it y of 00:00: mouth in [place] 00 the Medical morning. Branch LINZESS 145 2021-0 Yes 1{capsu Take 1 U nivers mcg capsule 5-27 le} capsule by it y of 00:00: mouth in [place] the Medical morning. Branch LINZESS 145 2021-0 Yes 1{capsu Take 1 U nivers mcg capsule 5-27 le} capsule by it y of 00:00: mouth in [place] the Medical morning. Branch LINZESS 145 2021-0 Yes 1{capsu Take 1 U nivers mcg capsule 5-27 le} capsule by it y of 00:00: mouth in [place] the Medical morning. Branch LINZESS 145 2021-0 Yes 1{capsu Take 1 U nivers mcg capsule 5-27 le} capsule by it y of 00:00: mouth in [place] the Medical morning. Branch LINZESS 145 2021-0 Yes 1{capsu Take 1 U nivers mcg capsule 5-27 le} capsule by it y of 00:00: mouth in [place] the Medical morning. Branch LINZESS 145 2021-0 Yes 1{capsu Take 1 U nivers mcg capsule 5-27 le} capsule by it y of 00:00: mouth in [place] the Medical morning. Branch LINZESS 145 2021-0 Yes 1{capsu Take 1 U nivers mcg capsule 5-27 le} capsule by it y of 00:00: mouth in [place] the Medical morning. Branch LINZESS 145 2021-0 Yes 1{capsu Take 1 U nivers mcg capsule 5-27 le} capsule by it y of 00:00: mouth in [place] 00 the Medical morning. Branch LINZESS 145 2021-0 Yes 1{capsu Take 1 U nivers mcg capsule 5-27 le} capsule by it y of 00:00: mouth in [place] the Medical morning. Branch LINZESS 145 2021-0 Yes 1{capsu Take 1 U nivers mcg capsule 5-27 le} capsule by it y of 00:00: mouth in [place] 00 the Medical morning. Branch LINZESS 145 2021-0 Yes 1{capsu Take 1 U nivers mcg capsule 5-27 le} capsule by it y of 00:00: mouth in [place] 00 the Medical morning. Branch LINZESS 145 2021-0 Yes 1{capsu Take 1 U nivers mcg capsule 5-27 le} capsule by it y of 00:00: mouth in [place] 00 the Medical morning. Branch LINZESS 145 2021-0 Yes 145ug Take 1 Uni vers mcg capsule 5-27 capsule by it y of 00:00: mouth in [place] 00 the Medical morning. Branch LINZESS 145 2021-0 Yes 145ug Take 1 Uni vers mcg capsule 5-27 capsule by it y of 00:00: mouth in [place] the Medical morning. Branch LINZESS 145 2021-0 Yes 145ug Take 1 Uni vers mcg capsule 5-27 capsule by it y of 00:00: mouth in [place] the Medical morning. Branch LINZESS 145 2021-0 Yes 145ug Take 1 Uni vers mcg capsule 5-27 capsule by it y of 00:00: mouth in [place] the Medical morning. [place] Vitamin B12 Vitamin B12 0 No 1000ug Common (Cyanocobal (Cyanocobal 5-10 S pirit nayak) nayak) 00:00: - CHI 00 [facility] Vitamin B12 Vitamin B12 2021-0 No 1000ug Common (Cyanocobal (Cyanocobal 5-10 S pirit nayak) nayak) 00:00: - CHI 00 [facility] Vitamin B12 Vitamin B12 2021-0 No 1000ug Common (Cyanocobal (Cyanocobal 5-10 S pirit nayak) nayak) 00:00: - CHI 00 [facility] Vitamin B12 Vitamin B12 2021-0 No 1000ug Common (Cyanocobal (Cyanocobal 5-10 S pirit nayak) nayak) 00:00: - CHI 00 [facility] Vitamin B12 Vitamin B12 2021-0 No 1000ug Common (Cyanocobal (Cyanocobal 5-10 S pirit nayak) nayak) 00:00: - CHI 00 [facility] Vitamin B12 Vitamin B12 2021-0 No 1000ug Common (Cyanocobal (Cyanocobal 5-10 S pirit nayak) nayak) 00:00: - CHI 00 [facility] Vitamin B12 Vitamin B12 2021-0 No 1000ug Common (Cyanocobal (Cyanocobal 5-10 S pirit nayak) nayak) 00:00: - CHI 00 [facility] Vitamin B12 Vitamin B12 2-0 No 1000ug Common (Cyanocobal (Cyanocobal 5-10 S pirit nayak) nayak) 00:00: - CHI 00 [facility] Vitamin B12 Vitamin B12 2021-0 No 1000ug Common (Cyanocobal (Cyanocobal 5-10 S pirit nayak) nayak) 00:00: - CHI 00 [facility] Vitamin B12 Vitamin B12 2021-0 No 1000ug Common (Cyanocobal (Cyanocobal 5-10 S pirit nayak) nayak) 00:00: - CHI 00 [facility] Vitamin B12 Vitamin B12 2021-0 No 1000ug Common (Cyanocobal (Cyanocobal 5-10 S pirit nayak) nayak) 00:00: - CHI 00 [facility] Vitamin B12 Vitamin B12 2021-0 No 1000ug Common (Cyanocobal (Cyanocobal 5-10 S pirit nayak) nayak) 00:00: - CHI 00 [facility] Vitamin B12 Vitamin B12 2021-0 No 1000ug Common (Cyanocobal (Cyanocobal 5-10 S pirit nayak) nayak) 00:00: - CHI 00 [facility] Vitamin B12 Vitamin B12 2021-0 No 1000ug Common (Cyanocobal (Cyanocobal 5-10 S pirit nayak) nayak) 00:00: - CHI 00 [facility] Vitamin B12 Vitamin B12 2021-0 No 1000ug Common (Cyanocobal (Cyanocobal 5-10 S pirit nayak) nayak) 00:00: - CHI 00 [facility] Vitamin B12 Vitamin B12 2-0 No 1000ug Common (Cyanocobal (Cyanocobal 5-10 S pirit nayak) nayak) 00:00: - CHI 00 [facility] Vitamin B12 Vitamin B12 2-0 No 1000ug Common (Cyanocobal (Cyanocobal 5-10 S pirit nayak) nayak) 00:00: - CHI 00 [facility] Vitamin B12 Vitamin B12 2021-0 No 1000ug Common (Cyanocobal (Cyanocobal 5-10 S pirit nayak) nayak) 00:00: - CHI 00 [facility] Vitamin B12 Vitamin B12 2021-0 No 1000ug Common (Cyanocobal (Cyanocobal 5-10 S pirit nayak) nayak) 00:00: - CHI 00 [facility] Vitamin B12 Vitamin B12 2022-0 No 1000ug Common (Cyanocobal (Cyanocobal 5-10 S pirit nayak) nayak) 00:00: - CHI 00 [facility] Vitamin B12 Vitamin B12 2-0 No 1000ug Common (Cyanocobal (Cyanocobal 5-10 S pirit nayak) nayak) 00:00: - CHI 00 [facility] Vitamin B12 Vitamin B12 2021-0 No 1000ug Common (Cyanocobal (Cyanocobal 5-10 S pirit nayak) nayak) 00:00: - CHI 00 [facility] Vitamin B12 Vitamin B12 2-0 No 1000ug Common (Cyanocobal (Cyanocobal 5-10 S pirit nayak) nayak) 00:00: - CHI 00 [facility] Vitamin B12 Vitamin B12 2021-0 No 1000ug Common (Cyanocobal (Cyanocobal 5-10 S pirit nayak) nayak) 00:00: - CHI 00 [facility] Alfuzosin Alfuzosin 2021-2021- No 1{table QD Alfuzosin HCl ER 10 HCl ER 10 10-1724 t_immed HCl ER 10 MG MG 00:00: 00:00 iately_ MG 00 :00 after_t he_same _meal} Alfuzosin Alfuzosin 2021-2021- No 1{table QD Alfuzosin HCl ER 10 HCl ER 10 10-1724 t_immed HCl ER 10 MG MG 00:00: 00:00 iately_ MG 00 :00 after_t he_same _meal} Alfuzosin Alfuzosin 2021-0 2021- No 1{table QD Alfuzosin HCl ER 10 HCl ER 10 10-17 10-24 t_immed HCl ER 10 MG MG 00:00: 00:00 iately_ MG 00 :00 after_t he_same _meal} Alfuzosin Alfuzosin 2021-0 2021- No 1{table QD [...] Alfuzosin HCl ER 10 HCl ER 10 10-17- t_immed HCl ER 10 MG MG 00:00: [...] MG 00 :00 after_t he_same _meal} simvastatin 2021-2021- No 40mg Take 40 mg Univers 40 mg 10-06 by mouth ity of tablet 00:00: 00:00 every [place] 00 :00 evening. Medical Branch simvastatin 2021-2021- No 40mg Take 40 mg Univers 40 mg 10-06 by mouth ity of tablet 00:00: 00:00 every [place] 00 :00 evening. Medical Branch Vitamin B12 Vitamin B12 No 1000ug Common (Cyanocobal (Cyanocobal 3-10 S pirit nayak) nayak) 00:00: - CHI 00 [facility] Vitamin B12 Vitamin B12 2021-0 No 1000ug Common (Cyanocobal (Cyanocobal 3-10 S pirit nayak) nayak) 00:00: - CHI 00 [facility] Vitamin B12 Vitamin B12 2-0 No 1000ug Common (Cyanocobal (Cyanocobal 3-10 S pirit nayak) nayak) 00:00: - CHI 00 [facility] Vitamin B12 Vitamin B12 2021-0 No 1000ug Common (Cyanocobal (Cyanocobal 3-10 S pirit nayak) nayak) 00:00: - CHI 00 [facility] Vitamin B12 Vitamin B12 2021-0 No 1000ug Common (Cyanocobal (Cyanocobal 3-10 S pirit nayak) nayak) 00:00: - CHI 00 [facility] Vitamin B12 Vitamin B12 2-0 No 1000ug Common (Cyanocobal (Cyanocobal 3-10 S pirit nayak) nayak) 00:00: - CHI 00 [facility] Vitamin B12 Vitamin B12 2021-0 No 1000ug Common (Cyanocobal (Cyanocobal 3-10 S pirit nayak) nayak) 00:00: - CHI 00 [facility] Vitamin B12 Vitamin B12 2021-0 No 1000ug Common (Cyanocobal (Cyanocobal 3-10 S pirit nayak) nayak) 00:00: - CHI 00 [facility] Vitamin B12 Vitamin B12 2-0 No 1000ug Common (Cyanocobal (Cyanocobal 3-10 S pirit nayak) nayak) 00:00: - CHI 00 [facility] Vitamin B12 Vitamin B12 2-0 No 1000ug Common (Cyanocobal (Cyanocobal 3-10 S pirit nayak) nayak) 00:00: - CHI 00 [facility] Vitamin B12 Vitamin B12 2-0 No 1000ug Common (Cyanocobal (Cyanocobal 3-10 S pirit nayak) nayak) 00:00: - CHI 00 [facility] Vitamin B12 Vitamin B12 2022-0 No 1000ug Common (Cyanocobal (Cyanocobal 3-10 S pirit nayak) nayak) 00:00: - CHI 00 [facility] Vitamin B12 Vitamin B12 2-0 No 1000ug Common (Cyanocobal (Cyanocobal 3-10 S pirit nayak) nayak) 00:00: - CHI 00 [facility] Vitamin B12 Vitamin B12 2021-0 No 1000ug Common (Cyanocobal (Cyanocobal 3-10 S pirit nayak) nayak) 00:00: - CHI 00 [facility] Vitamin B12 Vitamin B12 2-0 No 1000ug Common (Cyanocobal (Cyanocobal 3-10 S pirit nayak) nayak) 00:00: - CHI 00 [facility] Vitamin B12 Vitamin B12 2021-0 No 1000ug Common (Cyanocobal (Cyanocobal 3-10 S pirit nayak) nayak) 00:00: - CHI 00 [facility] Vitamin B12 Vitamin B12 2021-0 No 1000ug Common (Cyanocobal (Cyanocobal 3-10 S pirit nayak) nayak) 00:00: - CHI 00 [facility] Vitamin B12 Vitamin B12 2021-0 No 1000ug Common (Cyanocobal (Cyanocobal 3-10 S pirit nayak) nayak) 00:00: - CHI 00 [facility] Vitamin B12 Vitamin B12 2021-0 No 1000ug Common (Cyanocobal (Cyanocobal 3-10 S pirit nayak) nayak) 00:00: - CHI 00 [facility] Vitamin B12 Vitamin B12 2021-0 No 1000ug Common (Cyanocobal (Cyanocobal 3-10 S pirit nayak) nayak) 00:00: - CHI 00 [facility] Vitamin B12 Vitamin B12 2-0 No 1000ug Common (Cyanocobal (Cyanocobal 3-10 S pirit nayak) nayak) 00:00: - CHI 00 [facility] Vitamin B12 Vitamin B12 2-0 No 1000ug Common (Cyanocobal (Cyanocobal 3-10 S pirit nayak) nayak) 00:00: - CHI 00 [facility] Vitamin B12 Vitamin B12 2-0 No 1000ug Common (Cyanocobal (Cyanocobal 3-10 S pirit nayak) nayak) 00:00: - CHI 00 [facility] Vitamin B12 Vitamin B12 2022-0 No 1000ug Common (Cyanocobal (Cyanocobal 3-10 S pirit nayak) nayak) 00:00: - CHI 00 [facility] Vitamin B12 Vitamin B12 2-0 No 1000ug Common (Cyanocobal (Cyanocobal 3-10 S pirit nayak) nayak) 00:00: - CHI 00 [facility] Vitamin B12 Vitamin B12 2-0 No 1000ug Common (Cyanocobal (Cyanocobal 3-10 S pirit nayak) nayak) 00:00: - CHI 00 [facility] Vitamin B12 Vitamin B12 2-0 No 1000ug Common (Cyanocobal (Cyanocobal 3-10 S pirit nayak) nayak) 00:00: - CHI 00 [facility] Vitamin B12 Vitamin B12 2021-0 No 1000ug Common (Cyanocobal (Cyanocobal 3-10 S pirit nayak) nayak) 00:00: - CHI 00 [facility] Vitamin B12 Vitamin B12 2021-0 No 1000ug Common (Cyanocobal (Cyanocobal 3-10 S pirit nayak) nayak) 00:00: - CHI 00 [facility] Azithromyci Azithromyci 2021-0 2022- No QD Azithromyc n 250 MG n 250 MG 3-12 in 250 MG 00:00: 00:00 00 :00 Azithromyci Azithromyci 2021-0 2022- No QD Azithromyc n 250 MG n 250 MG 3 03-12 in 250 MG 00:00: 00:00 00 :00 traZODone traZODone 2021-0 No QD traZODone HCl 100 MG HCl 100 MG 2-28 HCl 100 MG 00:00: 00 traZODone traZODone 2-0 No QD traZODone HCl 100 MG HCl 100 MG 2-28 HCl 100 MG 00:00: 00 traZODone traZODone 2-0 No QD traZODone HCl 100 MG HCl 100 MG 2-28 HCl 100 MG 00:00: 00 traZODone traZODone 2-0 No QD traZODone HCl 100 MG HCl 100 MG 2-28 HCl 100 MG 00:00: 00 Bactrim DS Bactrim DS 2021-0 2- No 1{table BID Bactrim DS 800-160 MG 800-160 MG 2-17 02-24 t} 800-160 MG 00:00: 00:00 00 :00 Vitamin B12 Vitamin B12 2021-0 No 1000ug Common (Cyanocobal (Cyanocobal 2-02 S pirit nayak) nayak) 00:00: - CHI 00 [facility] Vitamin B12 Vitamin B12 2-0 No 1000ug Common (Cyanocobal (Cyanocobal 2-02 S pirit nayak) nayak) 00:00: - CHI 00 [facility] Vitamin B12 Vitamin B12 2022-0 No 1000ug Common (Cyanocobal (Cyanocobal 2-02 S pirit nayak) nayak) 00:00: - CHI 00 [facility] Vitamin B12 Vitamin B12 2-0 No 1000ug Common (Cyanocobal (Cyanocobal 2-02 S pirit nayak) nayak) 00:00: - [facility] 00 [facility] Vitamin B12 Vitamin B12 2021-0 No 1000ug Common (Cyanocobal (Cyanocobal 2-02 S pirit nayak) nayak) 00:00: - [facility] 00 [facility] Vitamin B12 Vitamin B12 2-0 No 1000ug Common (Cyanocobal (Cyanocobal 2-02 S pirit nayak) nayak) 00:00: - [facility] 00 [facility] Vitamin B12 Vitamin B12 2-0 No 1000ug Common (Cyanocobal (Cyanocobal 2-02 S pirit nayak) nayak) 00:00: - [facility] 00 [facility] Vitamin B12 Vitamin B12 2021-0 No 1000ug Common (Cyanocobal (Cyanocobal 2-02 S pirit nayak) nayak) 00:00: - [facility] 00 [facility] Vitamin B12 Vitamin B12 2-0 No 1000ug Common (Cyanocobal (Cyanocobal 2-02 S pirit nayak) nayak) 00:00: - [facility] 00 [facility] Vitamin B12 Vitamin B12 2022-0 No 1000ug Common (Cyanocobal (Cyanocobal 2-02 S pirit nayak) nayak) 00:00: - [facility] 00 [facility] Vitamin B12 Vitamin B12 2022-0 No 1000ug Common (Cyanocobal (Cyanocobal 2-02 S pirit nayak) nayak) 00:00: - [facility] 00 [facility] Vitamin B12 Vitamin B12 2022-0 No 1000ug Common (Cyanocobal (Cyanocobal 2-02 S pirit nayak) nayak) 00:00: - [facility] 00 [facility] Vitamin B12 Vitamin B12 2022-0 No 1000ug Common (Cyanocobal (Cyanocobal 2-02 S pirit nayak) nayak) 00:00: - [facility] 00 [facility] Vitamin B12 Vitamin B12 2-0 No 1000ug Common (Cyanocobal (Cyanocobal 2-02 S pirit nayak) nayak) 00:00: - [facility] 00 [facility] Vitamin B12 Vitamin B12 2022-0 No 1000ug Common (Cyanocobal (Cyanocobal 2-02 S pirit nayak) nayak) 00:00: - [facility] 00 [facility] Vitamin B12 Vitamin B12 2-0 No 1000ug Common (Cyanocobal (Cyanocobal 2-02 S pirit nayak) nayak) 00:00: - [facility] 00 [facility] Vitamin B12 Vitamin B12 2-0 No 1000ug Common (Cyanocobal (Cyanocobal 2-02 S pirit nayak) nayak) 00:00: - [facility] 00 [facility] Vitamin B12 Vitamin B12 2022-0 No 1000ug Common (Cyanocobal (Cyanocobal 2-02 S pirit nayak) nayak) 00:00: - [facility] 00 [facility] Vitamin B12 Vitamin B12 2-0 No 1000ug Common (Cyanocobal (Cyanocobal 2-02 S pirit nayak) nayak) 00:00: - [facility] 00 [facility] Vitamin B12 Vitamin B12 2-0 No 1000ug Common (Cyanocobal (Cyanocobal 2-02 S pirit nayak) nayak) 00:00: - [facility] 00 [facility] Vitamin B12 Vitamin B12 2-0 No 1000ug Common (Cyanocobal (Cyanocobal 2-02 S pirit nayak) nayak) 00:00: - [facility] 00 [facility] Vitamin B12 Vitamin B12 2022-0 No 1000ug Common (Cyanocobal (Cyanocobal 2-02 S pirit nayak) nayak) 00:00: - [facility] 00 [facility] Vitamin B12 Vitamin B12 2022-0 No 1000ug Common (Cyanocobal (Cyanocobal 2-02 S pirit nayak) nayak) 00:00: - [facility] 00 [facility] Vitamin B12 Vitamin B12 2022-0 No 1000ug Common (Cyanocobal (Cyanocobal 2-02 S pirit nayak) nayak) 00:00: - [facility] 00 [facility] Vitamin B12 Vitamin B12 2022-0 No 1000ug Common (Cyanocobal (Cyanocobal 2-02 S pirit nayak) nayak) 00:00: - [facility] 00 [facility] Vitamin B12 Vitamin B12 2-0 No 1000ug Common (Cyanocobal (Cyanocobal 2-02 S pirit nayak) nayak) 00:00: - [facility] 00 [facility] Vitamin B12 Vitamin B12 2022-0 No 1000ug Common (Cyanocobal (Cyanocobal 2-02 S pirit nayak) nayak) 00:00: - [facility] 00 [facility] Vitamin B12 Vitamin B12 2022-0 No 1000ug Common (Cyanocobal (Cyanocobal 2-02 S pirit nayak) nayak) 00:00: - [facility] 00 [facility] Vitamin B12 Vitamin B12 2021-0 No 1000ug Common (Cyanocobal (Cyanocobal 2-02 S pirit nayak) nayak) 00:00: - [facility] 00 [facility] Vitamin B12 Vitamin B12 2-0 No 1000ug Common (Cyanocobal (Cyanocobal 2-02 S pirit nayak) nayak) 00:00: - [facility] 00 [facility] Vitamin B12 Vitamin B12 2021-0 No 1000ug Common (Cyanocobal (Cyanocobal 2-02 S pirit nayak) nayak) 00:00: - [facility] 00 [facility] budesonide- 0 Yes 2{puff} Inhale 2 [facility] formoterol 2-01 Puffs 2 ity of (SYMBICORT) 14:26: (two) [place] 160-4.5 39 times Medical mcg/actuati daily. Branch on inhaler clopidogreL 2021-0 Yes 75mg Take 75 mg Univers (PLAVIX) 75 2-01 by mouth ity of mg tablet 14:26: daily. [address] budesonide- 2021-0 Yes 2{puff} Inhale 2 [facility] formoterol 2-01 Puffs 2 ity of (SYMBICORT) 14:26: (two) [place] 160-4.5 39 times Medical mcg/actuati daily. Branch on inhaler clopidogreL 2021-0 Yes 75mg Take 75 mg Univers (PLAVIX) 75 2-01 by mouth ity of mg tablet 14:26: daily. [address] budesonide- 2021-0 Yes 2{puff} Inhale 2 [facility] formoterol 2-01 Puffs 2 ity of (SYMBICORT) 14:26: (two) [place] 160-4.5 39 times Medical mcg/actuati daily. Branch on inhaler clopidogreL 2-0 Yes 75mg Take 75 mg Univers (PLAVIX) 75 2-01 by mouth ity of mg tablet 14:26: daily. [place] [address] Medical Branch budesonide- 2-0 Yes 2{puff} Inhale 2 [facility] formoterol 2-01 Puffs 2 ity of (SYMBICORT) 14:26: (two) [place] 160-4.5 39 times Medical mcg/actuati daily. Branch on inhaler clopidogreL 2-0 Yes 75mg Take 75 mg Univers (PLAVIX) 75 2-01 by mouth ity of mg tablet 14:26: daily. [place] [address] Medical Branch nystatin 2-0 Yes [id number] Apply to U nivers 100,000 2-01 area(s) 2 ity of unit/gram 00:00: (two) [place] cream 00 times Medical daily. Branch nystatin 2022-0 Yes [id number] Apply to U nivers 100,000 2-01 area(s) 2 ity of unit/gram 00:00: (two) [place] cream 00 times Medical daily. Branch nystatin 2022-0 Yes [id number] Apply to U nivers 100,000 2-01 area(s) 2 ity of unit/gram 00:00: (two) [place] cream 00 times Medical daily. Branch nystatin 2022-0 Yes [id number] Apply to U nivers 100,000 2-01 area(s) 2 ity of unit/gram 00:00: (two) [place] cream 00 times Medical daily. Branch nystatin 2022-0 Yes [id number] Apply to U nivers 100,000 2-01 area(s) 2 ity of unit/gram 00:00: (two) [place] cream 00 times Medical daily. Branch nystatin 2022-0 Yes [id number] Apply to U nivers 100,000 2-01 area(s) 2 ity of unit/gram 00:00: (two) [place] cream 00 times Medical daily. Branch nystatin 2022-0 Yes [id number] Apply to U nivers 100,000 2-01 area(s) 2 ity of unit/gram 00:00: (two) [place] cream 00 times Medical daily. Branch nystatin 2022-0 Yes [id number] Apply to U nivers 100,000 2-01 area(s) 2 ity of unit/gram 00:00: (two) [place] cream 00 times Medical daily. Branch nystatin 2022-0 Yes [id number] Apply to U nivers 100,000 2-01 area(s) 2 ity of unit/gram 00:00: (two) [place] cream 00 times Medical daily. Branch nystatin 2022-0 Yes [id number] Apply to U nivers 100,000 2-01 area(s) 2 ity of unit/gram 00:00: (two) [place] cream 00 times Medical daily. Branch nystatin 2022-0 Yes [id number] Apply to U nivers 100,000 2-01 area(s) 2 ity of unit/gram 00:00: (two) [place] cream 00 times Medical daily. Branch nystatin 2022-0 Yes [id number] Apply to U nivers 100,000 2-01 area(s) 2 ity of unit/gram 00:00: (two) [place] cream 00 times Medical daily. Branch nystatin 2022-0 Yes [id number] Apply to U nivers 100,000 2-01 area(s) 2 ity of unit/gram 00:00: (two) [place] cream 00 times Medical daily. Branch nystatin 2022-0 Yes [id number] Apply to U nivers 100,000 2-01 area(s) 2 ity of unit/gram 00:00: (two) [place] cream 00 times Medical daily. Branch nystatin 2022-0 Yes [id number] Apply to U nivers 100,000 2-01 area(s) 2 ity of unit/gram 00:00: (two) [place] cream 00 times Medical daily. Branch nystatin 2022-0 Yes [id number] Apply to U nivers 100,000 2-01 area(s) 2 ity of unit/gram 00:00: (two) [place] cream 00 times Medical daily. Branch nystatin 2022-0 Yes [id number] Apply to U nivers 100,000 2-01 area(s) 2 ity of unit/gram 00:00: (two) [place] cream 00 times Medical daily. Branch nystatin 2022-0 Yes [id number] Apply to U nivers 100,000 2-01 area(s) 2 ity of unit/gram 00:00: (two) [place] cream 00 times Medical daily. Branch nystatin 2022-0 Yes [id number] Apply to U nivers 100,000 2-01 area(s) 2 ity of unit/gram 00:00: (two) [place] cream 00 times Medical daily. Branch nystatin 2022-0 Yes [id number] Apply to U nivers 100,000 2-01 area(s) 2 ity of unit/gram 00:00: (two) [place] cream 00 times Medical daily. Branch nystatin 2022-0 Yes [id number] Apply to U nivers 100,000 2-01 area(s) 2 ity of unit/gram 00:00: (two) [place] cream 00 times Medical daily. Branch nystatin 2022-0 Yes [id number] Apply to U nivers 100,000 2-01 area(s) 2 ity of unit/gram 00:00: (two) [place] cream 00 times Medical daily. Branch nystatin 2022-0 Yes [id number] Apply to U nivers 100,000 2-01 area(s) 2 ity of unit/gram 00:00: (two) [place] cream 00 times Medical daily. Branch nystatin 2022-0 Yes [id number] Apply to U nivers 100,000 2-01 area(s) 2 ity of unit/gram 00:00: (two) [place] cream 00 times Medical daily. Branch nystatin 2022-0 Yes [id number] Apply to U nivers 100,000 2-01 area(s) 2 ity of unit/gram 00:00: (two) [place] cream 00 times Medical daily. Branch nystatin 2022-0 Yes [id number] Apply to U nivers 100,000 2-01 area(s) 2 ity of unit/gram 00:00: (two) [place] cream 00 times Medical daily. Branch nystatin 2022-0 Yes [id number] Apply to U nivers 100,000 2-01 area(s) 2 ity of unit/gram 00:00: (two) [place] cream 00 times Medical daily. Branch nystatin 2022-0 Yes [id number] Apply to U nivers 100,000 2-01 area(s) 2 ity of unit/gram 00:00: (two) [place] cream 00 times Medical daily. Branch nystatin 2022-0 Yes [id number] Apply to U nivers 100,000 2-01 area(s) 2 ity of unit/gram 00:00: (two) [place] cream 00 times Medical daily. Branch nystatin 2022-0 Yes [id number] Apply to U nivers 100,000 2-01 area(s) 2 ity of unit/gram 00:00: (two) [place] cream 00 times Medical daily. Branch nystatin 2022-0 Yes [id number] Apply to U nivers 100,000 2-01 area(s) 2 ity of unit/gram 00:00: (two) [place] cream 00 times Medical daily. Branch nystatin 2-0 Yes [id number] Apply to U nivers 100,000 2-01 area(s) 2 ity of unit/gram 00:00: (two) [place] cream 00 times Medical daily. Branch nystatin 2022-0 Yes [id number] Apply to U nivers 100,000 2-01 area(s) 2 ity of unit/gram 00:00: (two) [place] cream 00 times Medical daily. Branch nystatin 2-0 Yes [id number] Apply to U nivers 100,000 2-01 area(s) 2 ity of unit/gram 00:00: (two) [place] cream 00 times Medical daily. Branch Clotrimazol Clotrimazol 2021- No 1{appli BID Clotrimazo e 1 % e 1 % 120 02-17 cation} le 1 % 00:00: 00:00 00 :00 Clotrimazol Clotrimazol 2021- No 1{appli BID Clotrimazo e 1 % e 1 % 1-20 02-17 cation} le 1 % 00:00: 00:00 00 :00 esomeprazol 0 Yes 40mg Take 40 mg Univers e (NEXIUM) 1-10 by mouth ity o f 40 mg 08:18: daily. [place] capsule 50 Medical Branch nitroglycer 2021-[address] 0.4 U nivers in 1-10 mg under ity of (NITROSTAT) 08:18: the tongue [place] 0.4 mg 50 every 5 Medical sublingual (five) Branch tablet minutes as needed for Chest pain. mometasone 2022-0 Yes 1{spray Use 1 Uni vers (NASONEX) 1-10 } [place] in ity of 50 08:18: each [place] mcg/actuati 50 nostril. Medi jesus on nasal Branch spray ergocalcife 2-0 Yes Take by Uni vers rol, 1-10 [...] Use 1 Uni vers (NASONEX) 1-10 } [place] in ity of 50 08:18: each [place] mcg/actuati 50 nostril. Medi jesus on nasal Branch spray ergocalcife 2-0 Yes Take by Uni vers rol, 1-10 mouth. ity of vitamin D2, 08:18: [place] (VITAMIN D 50 Medical ORAL) Branch esomeprazol 2021-0 Yes 40mg Take 40 mg Univers e (NEXIUM) 1-10 by mouth ity o f 40 mg 08:18: daily. [place] capsule 50 Medical Branch nitroglycer 2-[address] 0.4 U nivers in 1-10 mg under ity of (NITROSTAT) 08:18: the tongue [place] 0.4 mg 50 every 5 Medical sublingual (five) Branch tablet minutes as needed for Chest pain. mometasone 2-0 Yes 1{spray Use 1 Uni vers (NASONEX) 1-10 } [place] in ity of 50 08:18: each [place] mcg/actuati 50 nostril. Medi jesus on nasal Branch spray ergocalcife 2-0 Yes Take by Uni vers rol, 1-10 [...] Use 1 Uni vers (NASONEX) 1-10 } [place] in ity of 50 08:18: each [place] mcg/actuati 50 nostril. Medi jesus on nasal Branch spray ergocalcife Yes Take by Uni vers rol, 1-10 mouth. ity of vitamin D2, 08:18: [place] (VITAMIN D 50 Medical ORAL) Branch PARoxetine Yes [id number] 10mg Take 1 Univers (PAXIL) 10 1-06 tablet by ity of mg tablet 00:00: mouth [place] 00 daily. Medical Branch oxybutynin Yes [id number] 5mg Take 1 [facility] XL 5 mg 24 1-06 tablet by ity of hr tablet 00:00: mouth [place] 00 daily. Medical Branch PARoxetine Yes [id number] 10mg Take 1 Univers (PAXIL) 10 1-06 tablet by ity of mg tablet 00:00: mouth [place] 00 daily. Medical Branch oxybutynin Yes [id number] 5mg Take 1 [facility] XL 5 mg 24 1-06 tablet by ity of hr tablet 00:00: mouth [place] 00 daily. Medical Branch PARoxetine Yes [id number] 10mg Take 1 Univers (PAXIL) 10 1-06 tablet by ity of mg tablet 00:00: mouth [place] 00 daily. Medical Branch oxybutynin Yes [id number] 5mg Take 1 [facility] XL 5 mg 24 1-06 tablet by ity of hr tablet 00:00: mouth [place] 00 daily. Medical Branch PARoxetine Yes [id number] 10mg Take 1 Univers (PAXIL) 10 1-06 tablet by ity of mg tablet 00:00: mouth [place] 00 daily. Medical Branch oxybutynin Yes [id number] 5mg Take 1 [facility] XL 5 mg 24 1-06 tablet by ity of hr tablet 00:00: mouth [place] 00 daily. Medical Branch PARoxetine 2021-0 Yes [id number] 10mg Take 1 Univers (PAXIL) 10 1-06 tablet by ity of mg tablet 00:00: mouth [place] 00 daily. Medical Branch oxybutynin 2021-0 Yes [id number] 5mg Take 1 [facility] XL 5 mg 24 1-06 tablet by ity of hr tablet 00:00: mouth [place] 00 daily. Medical Branch PARoxetine 2021-0 Yes [id number] 10mg Take 1 Univers (PAXIL) 10 1-06 tablet by ity of mg tablet 00:00: mouth [place] 00 daily. Medical Branch oxybutynin 0 Yes [id number] 5mg Take 1 [facility] XL 5 mg 24 1-06 tablet by ity of hr tablet 00:00: mouth [place] 00 daily. Medical Branch PARoxetine 2021-0 Yes [id number] 10mg Take 1 Univers (PAXIL) 10 1-06 tablet by ity of mg tablet 00:00: mouth [place] 00 daily. Medical Branch oxybutynin Yes [id number] 5mg Take 1 [facility] XL 5 mg 24 1-06 tablet by ity of hr tablet 00:00: mouth [place] 00 daily. Medical Branch PARoxetine 0 Yes [id number] 10mg Take 1 Univers (PAXIL) 10 1-06 tablet by ity of mg tablet 00:00: mouth [place] 00 daily. Medical Branch oxybutynin 2021-0 Yes [id number] 5mg Take 1 [facility] XL 5 mg 24 1-06 tablet by ity of hr tablet 00:00: mouth [place] 00 daily. Medical Branch PARoxetine 2021-0 Yes [id number] 10mg Take 1 Univers (PAXIL) 10 1-06 tablet by ity of mg tablet 00:00: mouth [place] 00 daily. Medical Branch oxybutynin 2021-0 Yes [id number] 5mg Take 1 [facility] XL 5 mg 24 1-06 tablet by ity of hr tablet 00:00: mouth [place] 00 daily. Medical Branch PARoxetine 2021-0 Yes [id number] 10mg Take 1 [facility] (PAXIL) 10 1-06 tablet by ity of mg tablet 00:00: mouth [place] 00 daily. Medical Branch oxybutynin 2021-0 Yes [id number] 5mg Take 1 [facility] XL 5 mg 24 1-06 tablet by ity of hr tablet 00:00: mouth [place] 00 daily. Medical Branch PARoxetine 2021-0 Yes [id number] 10mg Take 1 Univers (PAXIL) 10 1-06 tablet by ity of mg tablet 00:00: mouth [place] 00 daily. Medical Branch oxybutynin 2021-0 Yes [id number] 5mg Take 1 [facility] XL 5 mg 24 1-06 tablet by ity of hr tablet 00:00: mouth [place] 00 daily. Medical Branch PARoxetine 2021-0 Yes [id number] 10mg Take 1 [facility] (PAXIL) 10 1-06 tablet by ity of mg tablet 00:00: mouth [place] 00 daily. Medical Branch oxybutynin 2021-0 Yes [id number] 5mg Take 1 [facility] XL 5 mg 24 1-06 tablet by ity of hr tablet 00:00: mouth [place] 00 daily. Medical Branch PARoxetine 2021-0 Yes [id number] 10mg Take 1 Univers (PAXIL) 10 1-06 tablet by ity of mg tablet 00:00: mouth [place] 00 daily. Medical Branch oxybutynin Yes [id number] 5mg Take 1 [facility] XL 5 mg 24 1-06 tablet by ity of hr tablet 00:00: mouth [place] 00 daily. Medical Branch PARoxetine 0 Yes [id number] 10mg Take 1 Univers (PAXIL) 10 1-06 tablet by ity of mg tablet 00:00: mouth [place] 00 daily. Medical Branch oxybutynin 2021-0 Yes [id number] 5mg Take 1 [facility] XL 5 mg 24 1-06 tablet by ity of hr tablet 00:00: mouth [place] 00 daily. Medical Branch oxybutynin 2021-0 Yes [id number] 5mg Take 1 [facility] XL 5 mg 24 1-06 tablet by ity of hr tablet 00:00: mouth [place] 00 daily. Medical Branch oxybutynin 2021-0 Yes [id number] 5mg Take 1 [facility] XL 5 mg 24 1-06 tablet by ity of hr tablet 00:00: mouth [place] 00 daily. Medical Branch oxybutynin 2021-0 Yes [id number] 5mg Take 1 [facility] XL 5 mg 24 1-06 tablet by ity of hr tablet 00:00: mouth [place] 00 daily. Medical Branch oxybutynin 2021-0 Yes [id number] 5mg Take 1 [facility] XL 5 mg 24 1-06 tablet by ity of hr tablet 00:00: mouth [place] 00 daily. Medical Branch oxybutynin 2021-0 Yes [id number] 5mg Take 1 [facility] XL 5 mg 24 1-06 tablet by ity of hr tablet 00:00: mouth [place] 00 daily. Medical Branch oxybutynin 2021-0 Yes [id number] 5mg Take 1 [facility] XL 5 mg 24 1-06 tablet by ity of hr tablet 00:00: mouth [place] 00 daily. Medical Branch oxybutynin 2021-0 Yes [id number] 5mg Take 1 [facility] XL 5 mg 24 1-06 tablet by ity of hr tablet 00:00: mouth [place] 00 daily. Medical Branch oxybutynin 2021-0 Yes [id number] 5mg Take 1 [facility] XL 5 mg 24 1-06 tablet by ity of hr tablet 00:00: mouth [place] 00 daily. Medical Branch oxybutynin 2021-0 Yes [id number] 5mg Take 1 [facility] XL 5 mg 24 1-06 tablet by ity of hr tablet 00:00: mouth [place] 00 daily. Medical Branch oxybutynin 2021-0 Yes [id number] 5mg Take 1 [facility] XL 5 mg 24 1-06 tablet by ity of hr tablet 00:00: mouth [place] 00 daily. Medical Branch oxybutynin 2021-0 Yes [id number] 5mg Take 1 [facility] XL 5 mg 24 1-06 tablet by ity of hr tablet 00:00: mouth [place] 00 daily. Medical Branch oxybutynin 2021-0 Yes [id number] 5mg Take 1 [facility] XL 5 mg 24 1-06 tablet by ity of hr tablet 00:00: mouth [place] 00 daily. Medical Branch oxybutynin 2021-0 Yes [id number] 5mg Take 1 [facility] XL 5 mg 24 1-06 tablet by ity of hr tablet 00:00: mouth [place] 00 daily. Medical Branch oxybutynin 2021-0 Yes [id number] 5mg Take 1 [facility] XL 5 mg 24 1-06 tablet by ity of hr tablet 00:00: mouth [place] 00 daily. Medical Branch oxybutynin 2021-0 Yes [id number] 5mg Take 1 [facility] XL 5 mg 24 1-06 tablet by ity of hr tablet 00:00: mouth [place] 00 daily. Medical Branch oxybutynin 2-0 Yes [id number] 5mg Take 1 [facility] XL 5 mg 24 -06 tablet by ity of hr tablet 00:00: mouth [place] 00 daily. Medical Branch oxybutynin 2-0 Yes [id number] 5mg Take 1 [facility] XL 5 mg 24 -06 tablet by ity of hr tablet 00:00: mouth [place] 00 daily. Medical Branch oxybutynin 2021-0 3- No [id number] 5mg Take 1 [facility] XL 5 mg 24 06-28 03-13 tablet by ity of hr tablet 00:00: 00:00 mouth [place] 00 :00 daily. Medical Branch PARoxetine 2021-0 2- No [id number] 10mg Take 1 Univers (PAXIL) 10 06-28-09 tablet by ity of mg tablet 00:00: 00:00 mouth [place] 00 :00 daily. Medical Branch PARoxetine 2021-0 2021- No [id number] 10mg Take 1 Univers (PAXIL) 10 06-28-09 tablet by ity of mg tablet 00:00: 00:00 mouth [place] 00 :00 daily. Medical Branch Vitamin B12 Vitamin B12 0 No 1000ug Common (Cyanocobal (Cyanocobal 1-05 S pirit nayak) nayak) 00:00: - [facility] 00 [facility] Vitamin B12 Vitamin B12 2021-0 No 1000ug Common (Cyanocobal (Cyanocobal 1-05 S pirit nayak) nayak) 00:00: - [facility] 00 [facility] Vitamin B12 Vitamin B12 2021-0 No 1000ug Common (Cyanocobal (Cyanocobal 1-05 S pirit nayak) nayak) 00:00: - [facility] 00 [facility] Vitamin B12 Vitamin B12 2021-0 No 1000ug Common (Cyanocobal (Cyanocobal 1-05 S pirit nayak) nayak) 00:00: - [facility] 00 [facility] Vitamin B12 Vitamin B12 2021-0 No 1000ug Common (Cyanocobal (Cyanocobal 1-05 S pirit nayak) anyak) 00:00: - [facility] 00 [facility] Vitamin B12 Vitamin B12 2021-0 No 1000ug Common (Cyanocobal (Cyanocobal 1-05 S pirit nayak) nayak) 00:00: - [facility] 00 [facility] Vitamin B12 Vitamin B12 2-0 No 1000ug Common (Cyanocobal (Cyanocobal 1-05 S pirit nayak) nayak) 00:00: - [facility] 00 [facility] Vitamin B12 Vitamin B12 2-0 No 1000ug Common (Cyanocobal (Cyanocobal 1-05 S pirit nayak) nayak) 00:00: - [facility] 00 [facility] Vitamin B12 Vitamin B12 2-0 No 1000ug Common (Cyanocobal (Cyanocobal 1-05 S pirit nayak) nayak) 00:00: - [facility] 00 [facility] Vitamin B12 Vitamin B12 2-0 No 1000ug Common (Cyanocobal (Cyanocobal 1-05 S pirit nayak) nayak) 00:00: - [facility] 00 [facility] Vitamin B12 Vitamin B12 2-0 No 1000ug Common (Cyanocobal (Cyanocobal 1-05 S pirit nayak) nayak) 00:00: - [facility] 00 [facility] Vitamin B12 Vitamin B12 2-0 No 1000ug Common (Cyanocobal (Cyanocobal 1-05 S pirit nayak) nayak) 00:00: - [facility] 00 [facility] Vitamin B12 Vitamin B12 2-0 No 1000ug Common (Cyanocobal (Cyanocobal 1-05 S pirit nayak) nayak) 00:00: - [facility] 00 [facility] Vitamin B12 Vitamin B12 2-0 No 1000ug Common (Cyanocobal (Cyanocobal 1-05 S pirit nayak) nayak) 00:00: - [facility] 00 [facility] Vitamin B12 Vitamin B12 2-0 No 1000ug Common (Cyanocobal (Cyanocobal 1-05 S pirit nayak) nayak) 00:00: - [facility] 00 [facility] Vitamin B12 Vitamin B12 2022-0 No 1000ug Common (Cyanocobal (Cyanocobal 1-05 S pirit nayak) nayak) 00:00: - [facility]I 00 [facility] Vitamin B12 Vitamin B12 2022-0 No 1000ug Common (Cyanocobal (Cyanocobal 1-05 S pirit nayak) nayak) 00:00: - [facility] 00 [facility] Vitamin B12 Vitamin B12 2022-0 No 1000ug Common (Cyanocobal (Cyanocobal 1-05 S pirit nayak) nayak) 00:00: - [facility] 00 [facility] Vitamin B12 Vitamin B12 2-0 No 1000ug Common (Cyanocobal (Cyanocobal 1-05 S pirit nayak) nayak) 00:00: - [facility]I 00 [facility] Vitamin B12 Vitamin B12 2022-0 No 1000ug Common (Cyanocobal (Cyanocobal 1-05 S pirit nayak) nayak) 00:00: - [facility] 00 [facility] Vitamin B12 Vitamin B12 2-0 No 1000ug Common (Cyanocobal (Cyanocobal 1-05 S pirit nayak) nayak) 00:00: - [facility]I 00 [facility] Vitamin B12 Vitamin B12 2-0 No 1000ug Common (Cyanocobal (Cyanocobal 1-05 S pirit nayak) nayak) 00:00: - [facility]I 00 [facility] Vitamin B12 Vitamin B12 2-0 No 1000ug Common (Cyanocobal (Cyanocobal 1-05 S pirit nayak) nayak) 00:00: - [facility] 00 [facility] Vitamin B12 Vitamin B12 2-0 No 1000ug Common (Cyanocobal (Cyanocobal 1-05 S pirit nayak) nayak) 00:00: - [facility]I 00 [facility] Vitamin B12 Vitamin B12 2-0 No 1000ug Common (Cyanocobal (Cyanocobal 1-05 S pirit nayak) nayak) 00:00: - [facility] 00 [facility] Vitamin B12 Vitamin B12 2-0 No 1000ug Common (Cyanocobal (Cyanocobal 1-05 S pirit nayak) nayak) 00:00: - [facility] 00 [facility] Vitamin B12 Vitamin B12 2-0 No 1000ug Common (Cyanocobal (Cyanocobal 1-05 S pirit nayak) nayak) 00:00: - [facility]I 00 [facility] Vitamin B12 Vitamin B12 2022-0 No 1000ug Common (Cyanocobal (Cyanocobal 1-05 S pirit nayak) nayak) 00:00: - CHI 00 [facility] Vitamin B12 Vitamin B12 2022-0 No 1000ug Common (Cyanocobal (Cyanocobal 1-05 S pirit nayak) nayak) 00:00: - [facility]I 00 [facility] Vitamin B12 Vitamin B12 2022-0 No 1000ug Common (Cyanocobal (Cyanocobal 1-05 S pirit nayak) nayak) 00:00: - [facility] 00 [facility] Vitamin B12 Vitamin B12 2021-0 No 1000ug Common (Cyanocobal (Cyanocobal 1-05 S pirit nayak) nayak) 00:00: - [facility] 00 [facility] Vitamin B12 Vitamin B12 2020-06 No 1000ug Common (Cyanocobal (Cyanocobal 2-09 S pirit nayak) nayak) 00:00: - [facility] 00 [facility] Vitamin B12 Vitamin B12 2020-06 No 1000ug Common (Cyanocobal (Cyanocobal 2-09 S pirit nayak) nayak) 00:00: - [facility] 00 [facility] Vitamin B12 Vitamin B12 2020-06 No 1000ug Common (Cyanocobal (Cyanocobal 2-09 S pirit nayak) nayak) 00:00: - [facility] 00 [facility] Vitamin B12 Vitamin B12 2020-06 No 1000ug Common (Cyanocobal (Cyanocobal 2-09 S pirit nayak) nayak) 00:00: - [facility] 00 [facility] Vitamin B12 Vitamin B12 2020-06 No 1000ug Common (Cyanocobal (Cyanocobal 2-09 S pirit nayak) nayak) 00:00: - [facility]I 00 [facility] Vitamin B12 Vitamin B12 2020-06 No 1000ug Common (Cyanocobal (Cyanocobal 2-09 S pirit nayak) nayka) 00:00: - CHI 00 [facility] Vitamin B12 Vitamin B12 2020-06 No 1000ug Common (Cyanocobal (Cyanocobal 2-09 S pirit nayak) nayak) 00:00: - [facility] 00 [facility] Vitamin B12 Vitamin B12 2020-06 No 1000ug Common (Cyanocobal (Cyanocobal 2-09 S pirit nayak) nayak) 00:00: - [facility] 00 [facility] Vitamin B12 Vitamin B12 2020-06 No 1000ug Common (Cyanocobal (Cyanocobal 2-09 S pirit nayak) nayak) 00:00: - [facility] 00 [facility] Vitamin B12 Vitamin B12 2020-06 No 1000ug Common (Cyanocobal (Cyanocobal 2-09 S pirit nayak) nayak) 00:00: - [facility] 00 [facility] Vitamin B12 Vitamin B12 2020-06 No 1000ug Common (Cyanocobal (Cyanocobal 2-09 S pirit nayak) nayak) 00:00: - [facility] 00 [facility] Vitamin B12 Vitamin B12 2020-06 No 1000ug Common (Cyanocobal (Cyanocobal 2-09 S pirit nayak) nayak) 00:00: - [facility] 00 [facility] Vitamin B12 Vitamin B12 2020-06 No 1000ug Common (Cyanocobal (Cyanocobal 2-09 S pirit nayak) nayak) 00:00: - [facility] 00 [facility] Vitamin B12 Vitamin B12 2020-06 No 1000ug Common (Cyanocobal (Cyanocobal 2-09 S pirit nayak) nayak) 00:00: - CHI 00 [facility] Vitamin B12 Vitamin B12 2020-06 No 1000ug Common (Cyanocobal (Cyanocobal 2-09 S pirit nayak) nayak) 00:00: - CHI 00 [facility] Vitamin B12 Vitamin B12 2020-06 No 1000ug Common (Cyanocobal (Cyanocobal 2-09 S pirit nayak) nayak) 00:00: - CHI 00 [facility] Vitamin B12 Vitamin B12 2020-06 No 1000ug Common (Cyanocobal (Cyanocobal 2-09 S pirit nayak) nayak) 00:00: - CHI 00 [facility] Vitamin B12 Vitamin B12 2020-06 No 1000ug Common (Cyanocobal (Cyanocobal 2-09 S pirit nayak) nayak) 00:00: - CHI 00 [facility] Vitamin B12 Vitamin B12 2020-06 No 1000ug Common (Cyanocobal (Cyanocobal 2-09 S pirit nayak) nayak) 00:00: - CHI 00 [facility] Vitamin B12 Vitamin B12 2020-06 No 1000ug Common (Cyanocobal (Cyanocobal 2-09 S pirit nayak) nayak) 00:00: - CHI 00 [facility] Vitamin B12 Vitamin B12 2020-06 No 1000ug Common (Cyanocobal (Cyanocobal 2-09 S pirit nayak) nayak) 00:00: - CHI 00 [facility] Vitamin B12 Vitamin B12 2020-06 No 1000ug Common (Cyanocobal (Cyanocobal 2-09 S pirit nayak) nayak) 00:00: - CHI 00 [facility] Vitamin B12 Vitamin B12 2020-06 No 1000ug Common (Cyanocobal (Cyanocobal 2-09 S pirit nayak) nayak) 00:00: - CHI 00 [facility] Vitamin B12 Vitamin B12 2020-06 No 1000ug Common (Cyanocobal (Cyanocobal 2-09 S pirit nayak) nayak) 00:00: - CHI 00 [facility] Vitamin B12 Vitamin B12 2020-06 No 1000ug Common (Cyanocobal (Cyanocobal 2-09 S pirit nayak) nayak) 00:00: - CHI 00 [facility] Vitamin B12 Vitamin B12 2020-06 No 1000ug Common (Cyanocobal (Cyanocobal 2-09 S pirit nayak) nayak) 00:00: - CHI 00 [facility] Vitamin B12 Vitamin B12 2020-06 No 1000ug Common (Cyanocobal (Cyanocobal 2-09 S pirit nayak) nayak) 00:00: - CHI 00 [facility] Vitamin B12 Vitamin B12 2020-06 No 1000ug Common (Cyanocobal (Cyanocobal 2-09 S pirit nayak) nayak) 00:00: - CHI 00 [facility] Vitamin B12 Vitamin B12 2020-06 No 1000ug Common (Cyanocobal (Cyanocobal 2-09 S pirit nayak) nayak) 00:00: - CHI 00 [facility] Vitamin B12 Vitamin B12 2020-06 No 1000ug Common (Cyanocobal (Cyanocobal 2-09 S pirit nayak) nayak) 00:00: - CHI 00 [facility] Vitamin B12 Vitamin B12 2020-06 No 1000ug Common (Cyanocobal (Cyanocobal 2-09 S pirit nayak) nayak) 00:00: - CHI 00 [facility] Vitamin B12 Vitamin B12 2020-06 No 1000ug Common (Cyanocobal (Cyanocobal 1-01 S pirit nayak) nayak) 00:00: - CHI 00 [facility] Vitamin B12 Vitamin B12 2020-06 No 1000ug Common (Cyanocobal (Cyanocobal 1-01 S pirit nayak) nayak) 00:00: - CHI 00 [facility] Vitamin B12 Vitamin B12 2020-06 No 1000ug Common (Cyanocobal (Cyanocobal 1-01 S pirit nayak) nayak) 00:00: - CHI 00 [facility] Vitamin B12 Vitamin B12 2021-1 No 1000ug Common (Cyanocobal (Cyanocobal 1-01 S pirit nayak) nayak) 00:00: - CHI 00 [facility] Vitamin B12 Vitamin B12 2020-06 No 1000ug Common (Cyanocobal (Cyanocobal 1-01 S pirit nayak) nayak) 00:00: - CHI 00 [facility] Vitamin B12 Vitamin B12 2020-06 No 1000ug Common (Cyanocobal (Cyanocobal 1-01 S pirit nayak) nayak) 00:00: - CHI 00 [facility] Vitamin B12 Vitamin B12 2020-06 No 1000ug Common (Cyanocobal (Cyanocobal 1-01 S pirit nayak) nayak) 00:00: - CHI 00 [facility] Vitamin B12 Vitamin B12 2020-06 No 1000ug Common (Cyanocobal (Cyanocobal 1-01 S pirit nayak) nayak) 00:00: - CHI 00 [facility] Vitamin B12 Vitamin B12 2020-06 No 1000ug Common (Cyanocobal (Cyanocobal 1-01 S pirit nayak) nayak) 00:00: - CHI 00 [facility] Vitamin B12 Vitamin B12 2020-06 No 1000ug Common (Cyanocobal (Cyanocobal 1-01 S pirit nayak) nayak) 00:00: - CHI 00 [facility] Vitamin B12 Vitamin B12 2020-06 No 1000ug Common (Cyanocobal (Cyanocobal 1-01 S pirit nayak) nayak) 00:00: - CHI 00 [facility] Vitamin B12 Vitamin B12 2020-06 No 1000ug Common (Cyanocobal (Cyanocobal 1-01 S pirit nayak) nayak) 00:00: - CHI 00 [facility] Vitamin B12 Vitamin B12 2020-06 No 1000ug Common (Cyanocobal (Cyanocobal 1-01 S pirit nayak) nayak) 00:00: - CHI 00 [facility] Vitamin B12 Vitamin B12 2020-06 No 1000ug Common (Cyanocobal (Cyanocobal 1-01 S pirit nayak) nayak) 00:00: - CHI 00 [facility] Vitamin B12 Vitamin B12 2020-06 No 1000ug Common (Cyanocobal (Cyanocobal 1-01 S pirit nayak) nayak) 00:00: - CHI 00 [facility] Vitamin B12 Vitamin B12 2020-06 No 1000ug Common (Cyanocobal (Cyanocobal 1-01 S pirit nayak) nayak) 00:00: - CHI 00 [facility] Vitamin B12 Vitamin B12 2020-06 No 1000ug Common (Cyanocobal (Cyanocobal 1-01 S pirit nayak) nayak) 00:00: - CHI 00 [facility] Vitamin B12 Vitamin B12 2020-06 No 1000ug Common (Cyanocobal (Cyanocobal 1-01 S pirit nayak) nayak) 00:00: - CHI 00 [facility] Vitamin B12 Vitamin B12 2020-06 No 1000ug Common (Cyanocobal (Cyanocobal 1-01 S pirit nayak) nayak) 00:00: - CHI 00 [facility] Vitamin B12 Vitamin B12 2020-06 No 1000ug Common (Cyanocobal (Cyanocobal 1-01 S pirit nayak) nayak) 00:00: - CHI 00 [facility] Vitamin B12 Vitamin B12 2020-06 No 1000ug Common (Cyanocobal (Cyanocobal 1-01 S pirit nayak) nayak) 00:00: - CHI 00 [facility] Vitamin B12 Vitamin B12 2020-06 No 1000ug Common (Cyanocobal (Cyanocobal 1-01 S pirit nayak) nayak) 00:00: - CHI 00 [facility] Vitamin B12 Vitamin B12 2020-06 No 1000ug Common (Cyanocobal (Cyanocobal 1-01 S pirit nayak) nayak) 00:00: - CHI 00 [facility] Vitamin B12 Vitamin B12 2020-06 No 1000ug Common (Cyanocobal (Cyanocobal 1-01 S pirit nayak) nayak) 00:00: - CHI 00 [facility] Vitamin B12 Vitamin B12 2020-06 No 1000ug Common (Cyanocobal (Cyanocobal 1-01 S pirit nayak) nayak) 00:00: - CHI 00 [facility] Vitamin B12 Vitamin B12 2020- No 1000ug Common (Cyanocobal (Cyanocobal 1-01 S pirit nayak) nayak) 00:00: - CHI 00 [facility] Vitamin B12 Vitamin B12 2020-06 No 1000ug Common (Cyanocobal (Cyanocobal 1-01 S pirit nayak) nayak) 00:00: - CHI 00 [facility] Vitamin B12 Vitamin B12 2020-06 No 1000ug Common (Cyanocobal (Cyanocobal 1-01 S pirit nayak) nayak) 00:00: - CHI 00 [facility] Vitamin B12 Vitamin B12 2020-06 No 1000ug Common (Cyanocobal (Cyanocobal 1-01 S pirit nayak) nayak) 00:00: - CHI 00 [facility] Vitamin B12 Vitamin B12 2020-06 No 1000ug Common (Cyanocobal (Cyanocobal 1-01 S pirit nayak) nayak) 00:00: - CHI 00 [facility] Vitamin B12 Vitamin B12 2020-06 No 1000ug Common (Cyanocobal (Cyanocobal 1-01 S pirit nayak) nayak) 00:00: - CHI 00 [facility] Vitamin B12 Vitamin B12 2020-06 No 1000ug Common (Cyanocobal (Cyanocobal 0-01 S pirit nayak) nayak) 00:00: - CHI 00 [facility] Vitamin B12 Vitamin B12 2020-06 No 1000ug Common (Cyanocobal (Cyanocobal 0-01 S pirit nayak) nayak) 00:00: - CHI 00 [facility] Vitamin B12 Vitamin B12 2020-06 No 1000ug Common (Cyanocobal (Cyanocobal 0-01 S pirit nayak) nayak) 00:00: - CHI 00 [facility] Vitamin B12 Vitamin B12 2020-06 No 1000ug Common (Cyanocobal (Cyanocobal 0-01 S pirit nayak) nayak) 00:00: - CHI 00 [facility] Vitamin B12 Vitamin B12 2020-06 No 1000ug Common (Cyanocobal (Cyanocobal 0-01 S pirit nayak) nayak) 00:00: - CHI 00 [facility] Vitamin B12 Vitamin B12 2020-06 No 1000ug Common (Cyanocobal (Cyanocobal 0-01 S pirit nayak) nayak) 00:00: - CHI 00 [facility] Vitamin B12 Vitamin B12 2020-06 No 1000ug Common (Cyanocobal (Cyanocobal 0-01 S pirit nayak) nayak) 00:00: - CHI 00 [facility] Vitamin B12 Vitamin B12 2020-06 No 1000ug Common (Cyanocobal (Cyanocobal 0-01 S pirit nayak) nayak) 00:00: - CHI 00 [facility] Vitamin B12 Vitamin B12 2020-06 No 1000ug Common (Cyanocobal (Cyanocobal 0-01 S pirit nayak) nayak) 00:00: - CHI 00 [facility] Vitamin B12 Vitamin B12 2020-06 No 1000ug Common (Cyanocobal (Cyanocobal 0-01 S pirit nayak) nayak) 00:00: - CHI 00 [facility] Vitamin B12 Vitamin B12 2020-06 No 1000ug Common (Cyanocobal (Cyanocobal 0-01 S pirit nayak) nayak) 00:00: - CHI 00 [facility] Vitamin B12 Vitamin B12 2020-06 No 1000ug Common (Cyanocobal (Cyanocobal 0-01 S pirit nayak) nayak) 00:00: - CHI 00 [facility] Vitamin B12 Vitamin B12 2020-06 No 1000ug Common (Cyanocobal (Cyanocobal 0-01 S pirit nayak) nayak) 00:00: - CHI 00 [facility] Vitamin B12 Vitamin B12 2020-06 No 1000ug Common (Cyanocobal (Cyanocobal 0-01 S pirit nayak) nayak) 00:00: - CHI 00 [facility] Vitamin B12 Vitamin B12 2020-06 No 1000ug Common (Cyanocobal (Cyanocobal 0-01 S pirit nayak) nayak) 00:00: - CHI 00 [facility] Vitamin B12 Vitamin B12 2020-06 No 1000ug Common (Cyanocobal (Cyanocobal 0-01 S pirit nayak) nayak) 00:00: - CHI 00 [facility] Vitamin B12 Vitamin B12 2020-06 No 1000ug Common (Cyanocobal (Cyanocobal 0-01 S pirit nayak) nayak) 00:00: - CHI 00 [facility] Vitamin B12 Vitamin B12 2020-06 No 1000ug Common (Cyanocobal (Cyanocobal 0-01 S pirit nayak) nayak) 00:00: - CHI 00 [facility] Vitamin B12 Vitamin B12 2020-06 No 1000ug Common (Cyanocobal (Cyanocobal 0-01 S pirit nayak) nayak) 00:00: - CHI 00 [facility] Vitamin B12 Vitamin B12 2020-06 No 1000ug Common (Cyanocobal (Cyanocobal 0-01 S pirit nayak) nayak) 00:00: - CHI 00 [facility] Vitamin B12 Vitamin B12 2020-06 No 1000ug Common (Cyanocobal (Cyanocobal 0-01 S pirit nayak) nayak) 00:00: - CHI 00 [facility] Vitamin B12 Vitamin B12 2020-06 No 1000ug Common (Cyanocobal (Cyanocobal 0-01 S pirit nayak) nayak) 00:00: - CHI 00 [facility] Vitamin B12 Vitamin B12 2020-06 No 1000ug Common (Cyanocobal (Cyanocobal 0-01 S pirit nayak) nayak) 00:00: - CHI 00 [facility] Vitamin B12 Vitamin B12 2020-06 No 1000ug Common (Cyanocobal (Cyanocobal 0-01 S pirit nayak) nayak) 00:00: - CHI 00 [facility] Vitamin B12 Vitamin B12 2020-06 No 1000ug Common (Cyanocobal (Cyanocobal 0-01 S pirit nayak) nayak) 00:00: - CHI 00 [facility] Vitamin B12 Vitamin B12 2020-06 No 1000ug Common (Cyanocobal (Cyanocobal 0-01 S pirit nayak) nayak) 00:00: - CHI 00 [facility] Vitamin B12 Vitamin B12 2020-06 No 1000ug Common (Cyanocobal (Cyanocobal 0-01 S pirit nayak) nayak) 00:00: - CHI 00 [facility] Vitamin B12 Vitamin B12 2020-06 No 1000ug Common (Cyanocobal (Cyanocobal 0-01 S pirit nayak) nayak) 00:00: - CHI 00 [facility] Vitamin B12 Vitamin B12 2020-06 No 1000ug Common (Cyanocobal (Cyanocobal 0-01 S pirit nayak) nayak) 00:00: - CHI 00 [facility] Vitamin B12 Vitamin B12 2020-06 No 1000ug Common (Cyanocobal (Cyanocobal 0-01 S pirit nayak) nayak) 00:00: - CHI 00 [facility] Vitamin B12 Vitamin B12 2020-06 No 1000ug Common (Cyanocobal (Cyanocobal 0-01 S pirit nyaak) nayak) 00:00: - CHI 00 [facility] Vitamin B12 Vitamin B12 2020-0 No 1000ug Common (Cyanocobal (Cyanocobal 8-26 S pirit nayak) nayak) 00:00: - CHI 00 [facility] Vitamin B12 Vitamin B12 1-0 No 1000ug Common (Cyanocobal (Cyanocobal 8-26 S pirit nayak) nayak) 00:00: - CHI 00 [facility] Vitamin B12 Vitamin B12 1-0 No 1000ug Common (Cyanocobal (Cyanocobal 8-26 S pirit nayak) nayak) 00:00: - CHI 00 [facility] Vitamin B12 Vitamin B12 1-0 No 1000ug Common (Cyanocobal (Cyanocobal 8-26 S pirit nayak) nayak) 00:00: - CHI 00 [facility] Vitamin B12 Vitamin B12 1-0 No 1000ug Common (Cyanocobal (Cyanocobal 8-26 S pirit nayak) nayak) 00:00: - CHI 00 [facility] Vitamin B12 Vitamin B12 1-0 No 1000ug Common (Cyanocobal (Cyanocobal 8-26 S pirit nayak) nayak) 00:00: - CHI 00 [facility] Vitamin B12 Vitamin B12 1-0 No 1000ug Common (Cyanocobal (Cyanocobal 8-26 S pirit nayak) nayak) 00:00: - CHI 00 [facility] Vitamin B12 Vitamin B12 1-0 No 1000ug Common (Cyanocobal (Cyanocobal 8-26 S pirit nayak) nayak) 00:00: - CHI 00 [facility] Vitamin B12 Vitamin B12 1-0 No 1000ug Common (Cyanocobal (Cyanocobal 8-26 S pirit nayak) nayak) 00:00: - CHI 00 [facility] Vitamin B12 Vitamin B12 1-0 No 1000ug Common (Cyanocobal (Cyanocobal 8-26 S pirit nayak) nayak) 00:00: - CHI 00 [facility] Vitamin B12 Vitamin B12 2021-0 No 1000ug Common (Cyanocobal (Cyanocobal 8-26 S pirit nayak) nayak) 00:00: - CHI 00 [facility] Vitamin B12 Vitamin B12 2021-0 No 1000ug Common (Cyanocobal (Cyanocobal 8-26 S pirit nayak) nayak) 00:00: - CHI 00 [facility] Vitamin B12 Vitamin B12 2021-0 No 1000ug Common (Cyanocobal (Cyanocobal 8-26 S pirit nayak) nayak) 00:00: - CHI 00 [facility] Vitamin B12 Vitamin B12 1-0 No 1000ug Common (Cyanocobal (Cyanocobal 8-26 S pirit nayak) nayak) 00:00: - CHI 00 [facility] Vitamin B12 Vitamin B12 2021-0 No 1000ug Common (Cyanocobal (Cyanocobal 8-26 S pirit nayak) nayak) 00:00: - CHI 00 [facility] Vitamin B12 Vitamin B12 2020-0 No 1000ug Common (Cyanocobal (Cyanocobal 8-26 S pirit nayak) nayak) 00:00: - CHI 00 [facility] Vitamin B12 Vitamin B12 1-0 No 1000ug Common (Cyanocobal (Cyanocobal 8-26 S pirit nayak) nayak) 00:00: - CHI 00 [facility] Vitamin B12 Vitamin B12 1-0 No 1000ug Common (Cyanocobal (Cyanocobal 8-26 S pirit nayak) nayak) 00:00: - CHI 00 [facility] Vitamin B12 Vitamin B12 2020-0 No 1000ug Common (Cyanocobal (Cyanocobal 8-26 S pirit nayak) nayak) 00:00: - CHI 00 [facility] Vitamin B12 Vitamin B12 2020-0 No 1000ug Common (Cyanocobal (Cyanocobal 8-26 S pirit nayak) nayak) 00:00: - CHI 00 [facility] Vitamin B12 Vitamin B12 1-0 No 1000ug Common (Cyanocobal (Cyanocobal 8-26 S pirit nayak) nayak) 00:00: - CHI 00 [facility] Vitamin B12 Vitamin B12 1-0 No 1000ug Common (Cyanocobal (Cyanocobal 8-26 S pirit nayak) nayak) 00:00: - CHI 00 [facility] Vitamin B12 Vitamin B12 2021-0 No 1000ug Common (Cyanocobal (Cyanocobal 8-26 S pirit nayak) nayak) 00:00: - CHI 00 [facility] Vitamin B12 Vitamin B12 2021-0 No 1000ug Common (Cyanocobal (Cyanocobal 8-26 S pirit nayak) nayak) 00:00: - CHI 00 [facility] Vitamin B12 Vitamin B12 2021-0 No 1000ug Common (Cyanocobal (Cyanocobal 8-26 S pirit nayak) nayak) 00:00: - CHI 00 [facility] Vitamin B12 Vitamin B12 2020-0 No 1000ug Common (Cyanocobal (Cyanocobal 8-26 S pirit nayak) nayak) 00:00: - CHI 00 [facility] Vitamin B12 Vitamin B12 2020-0 No 1000ug Common (Cyanocobal (Cyanocobal 8-26 S pirit nayak) nayak) 00:00: - CHI 00 [facility] Vitamin B12 Vitamin B12 2020-0 No 1000ug Common (Cyanocobal (Cyanocobal 8-26 S pirit nayak) nayak) 00:00: - CHI 00 [facility] Vitamin B12 Vitamin B12 2020-0 No 1000ug Common (Cyanocobal (Cyanocobal 8-26 S pirit nayak) nayak) 00:00: - CHI 00 [facility] Vitamin B12 Vitamin B12 2020-0 No 1000ug Common (Cyanocobal (Cyanocobal 8-26 S pirit nayak) nayak) 00:00: - CHI 00 [facility] Vitamin B12 Vitamin B12 0 No 1000ug Common (Cyanocobal (Cyanocobal 8-26 S pirit nayak) nayak) 00:00: - CHI 00 [facility] estradioL 2020-0 Yes [id number] 1g Insert 1 g [employer] 0.01 % (0.1 8-19 into ity of mg/gram) 00:00: vagina [place] vaginal 00 weekly. Medical cream Pea size Branch In the labia/vagi na every night for 6 weeks then 3 times a week estradioL 2020-0 Yes [id number] 1g Insert 1 g [employer] 0.01 % (0.1 8-19 into ity of mg/gram) 00:00: vagina [place] vaginal 00 weekly. Medical cream Pea size Branch In the labia/vagi na every night for 6 weeks then 3 times a week estradioL 2020-0 Yes [id number] 1g Insert 1 g [employer] 0.01 % (0.1 8-19 into ity of mg/gram) 00:00: vagina [place] vaginal 00 weekly. Medical cream Pea size Branch In the labia/vagi na every night for 6 weeks then 3 times a week estradioL 2020-0 Yes [id number] 1g Insert 1 g [employer] 0.01 % [...] then 3 times a week estradioL Yes [id number] 1g Insert 1 g [employer] 0.01 % [...] Tamsulosin HCl 0.4 MG HCl 0.4 MG -03-26 le} HCl 0.4 MG 00:00: 00:00 00 [...] Tamsulosin HCl 0.4 MG HCl 0.4 MG -03-26 le} HCl 0.4 MG 00:00: 00:00 00 :00 Tamsulosin Tamsulosin 2020- No 1{capsu QD Tamsulosin HCl 0.4 MG HCl 0.4 MG -03-26 le} HCl 0.4 MG 00:00: 00:00 00 :00 Tamsulosin Tamsulosin 2020- No 1{capsu QD Tamsulosin HCl 0.4 MG HCl 0.4 MG -03-26 le} HCl 0.4 MG 00:00: 00:00 00 :00 Tamsulosin Tamsulosin 2020- No 1{capsu QD Tamsulosin HCl 0.4 MG HCl 0.4 MG -03-26 le} HCl 0.4 MG 00:00: 00:00 00 [...] S pirit nayak) nayak) 00:00: - CHI [facility] Vitamin B12 Vitamin B12 2020-0 No 1000ug Common (Cyanocobal (Cyanocobal 7-01 S pirit nayak) nayak) 00:00: - CHI [facility] Vitamin B12 Vitamin B12 2020-0 No 1000ug Common (Cyanocobal (Cyanocobal 7-01 S pirit nayak) nayak) 00:00: - CHI [facility] Vitamin B12 Vitamin B12 2020-0 No 1000ug Common (Cyanocobal (Cyanocobal 7-01 S pirit nayak) nayak) 00:00: - CHI [facility] Vitamin B12 Vitamin B12 2020-0 No 1000ug Common (Cyanocobal (Cyanocobal 7-01 S pirit nayak) nayak) 00:00: - CHI [facility] Vitamin B12 Vitamin B12 1-0 No 1000ug Common (Cyanocobal (Cyanocobal 7-01 S pirit nayak) nayak) 00:00: - CHI [facility] Vitamin B12 Vitamin B12 2021-0 No 1000ug Common (Cyanocobal (Cyanocobal 7-01 S pirit nayak) nayak) 00:00: - CHI [facility] Vitamin B12 Vitamin B12 2021-0 No 1000ug Common (Cyanocobal (Cyanocobal 7-01 S pirit nayak) nayak) 00:00: - CHI [facility] Vitamin B12 Vitamin B12 1-0 No 1000ug Common (Cyanocobal (Cyanocobal 7-01 S pirit nayak) nayak) 00:00: - CHI 00 [facility] Vitamin B12 Vitamin B12 2020-0 No 1000ug Common (Cyanocobal (Cyanocobal 7-01 S pirit nayak) nayak) 00:00: - CHI 00 [facility] Vitamin B12 Vitamin B12 2020-0 No 1000ug Common (Cyanocobal (Cyanocobal 7-01 S pirit nayak) nayak) 00:00: - CHI 00 [facility] Vitamin B12 Vitamin B12 2020-0 No 1000ug Common (Cyanocobal (Cyanocobal 7-01 S pirit nayak) nayak) 00:00: - CHI 00 [facility] Vitamin B12 Vitamin B12 2020-0 No 1000ug Common (Cyanocobal (Cyanocobal 7-01 S pirit nayak) nayak) 00:00: - CHI 00 [facility] Vitamin B12 Vitamin B12 2020-0 No 1000ug Common (Cyanocobal (Cyanocobal 7-01 S pirit nayak) nayak) 00:00: - CHI 00 [facility] Vitamin B12 Vitamin B12 2020-0 No 1000ug Common (Cyanocobal (Cyanocobal 7-01 S pirit nayak) nayak) 00:00: - CHI 00 [facility] Vitamin B12 Vitamin B12 1-0 No 1000ug Common (Cyanocobal (Cyanocobal 7-01 S pirit nayak) nayak) 00:00: - CHI 00 [facility] Vitamin B12 Vitamin B12 1-0 No 1000ug Common (Cyanocobal (Cyanocobal 7-01 S pirit nayak) nayak) 00:00: - CHI 00 [facility] Vitamin B12 Vitamin B12 2021-0 No 1000ug Common (Cyanocobal (Cyanocobal 7-01 S pirit nayak) nayak) 00:00: - CHI 00 [facility] Vitamin B12 Vitamin B12 2021-0 No 1000ug Common (Cyanocobal (Cyanocobal 7-01 S pirit nayak) nayak) 00:00: - CHI 00 [facility] Vitamin B12 Vitamin B12 2021-0 No 1000ug Common (Cyanocobal (Cyanocobal 7-01 S pirit nayak) nayak) 00:00: - CHI 00 [facility] Vitamin B12 Vitamin B12 2020-0 No 1000ug Common (Cyanocobal (Cyanocobal 7-01 S pirit nayak) nayak) 00:00: - CHI 00 [facility] Vitamin B12 Vitamin B12 2020-0 No 1000ug Common (Cyanocobal (Cyanocobal 7-01 S pirit nayak) nayak) 00:00: - CHI 00 [facility] Vitamin B12 Vitamin B12 2020-0 No 1000ug Common (Cyanocobal (Cyanocobal 7-01 S pirit nayak) nayak) 00:00: - CHI 00 [facility] Vitamin B12 Vitamin B12 2020-0 No 1000ug Common (Cyanocobal (Cyanocobal 7-01 S pirit nayak) nayak) 00:00: - CHI 00 [facility] Vitamin B12 Vitamin B12 2020-0 No 1000ug Common (Cyanocobal (Cyanocobal 7-01 S pirit nayak) nayak) 00:00: - CHI 00 [facility] Vitamin B12 Vitamin B12 2020-0 No 1000ug Common (Cyanocobal (Cyanocobal 7-01 S pirit nayak) nayak) 00:00: - CHI 00 [facility] Vitamin B12 Vitamin B12 2020-0 No 1000ug Common (Cyanocobal (Cyanocobal 7-01 S pirit nayak) nayak) 00:00: - CHI 00 [facility] Vitamin B12 Vitamin B12 2020-0 No 1000ug Common (Cyanocobal (Cyanocobal 7-01 S pirit nayak) nayak) 00:00: - CHI 00 [facility] Vitamin B12 Vitamin B12 2020-0 No 1000ug Common (Cyanocobal (Cyanocobal 7-01 S pirit nayak) nayak) 00:00: - CHI 00 [facility] Vitamin B12 Vitamin B12 2020-0 No 1000ug Common (Cyanocobal (Cyanocobal 7-01 S pirit nayak) nayak) 00:00: - CHI 00 [facility] Vitamin B12 Vitamin B12 1-0 No 1000ug Common (Cyanocobal (Cyanocobal 7-01 S pirit nayak) nayak) 00:00: - CHI 00 [facility] Flagyl 500 2020-0 No 1mg mg tablet 12-12 00:00: 00 Diflucan 202-0 No 1mg 150 mg 6-17 tablet 00:00: 00 Vitamin B12 Vitamin B12 2020-0 No 1000ug Common (Cyanocobal (Cyanocobal 6-15 S pirit nayak) nayak) 00:00: - CHI 00 [facility] Vitamin B12 Vitamin B12 2020-0 No 1000ug Common (Cyanocobal (Cyanocobal 6-15 S pirit nayak) nayak) 00:00: - CHI 00 [facility] Vitamin B12 Vitamin B12 2020-0 No 1000ug Common (Cyanocobal (Cyanocobal 6-15 S pirit nayak) nayak) 00:00: - CHI 00 [facility] Vitamin B12 Vitamin B12 2020-0 No 1000ug Common (Cyanocobal (Cyanocobal 6-15 S pirit nayak) nayak) 00:00: - CHI 00 [facility] Vitamin B12 Vitamin B12 2020-0 No 1000ug Common (Cyanocobal (Cyanocobal 6-15 S pirit nayak) nayak) 00:00: - CHI 00 [facility] Vitamin B12 Vitamin B12 2020-0 No 1000ug Common (Cyanocobal (Cyanocobal 6-15 S pirit nayak) nayak) 00:00: - CHI 00 [facility] Vitamin B12 Vitamin B12 2020-0 No 1000ug Common (Cyanocobal (Cyanocobal 6-15 S pirit nayak) nayak) 00:00: - CHI 00 [facility] Vitamin B12 Vitamin B12 2020-0 No 1000ug Common (Cyanocobal (Cyanocobal 6-15 S pirit nayak) nayak) 00:00: - CHI 00 [facility] Vitamin B12 Vitamin B12 2020-0 No 1000ug Common (Cyanocobal (Cyanocobal 6-15 S pirit nayak) nayak) 00:00: - CHI 00 [facility] Vitamin B12 Vitamin B12 2020-0 No 1000ug Common (Cyanocobal (Cyanocobal 6-15 S pirit nayak) nayak) 00:00: - [facility] 00 [facility] Vitamin B12 Vitamin B12 2020-0 No 1000ug Common (Cyanocobal (Cyanocobal 6-15 S pirit nayak) nayak) 00:00: - [facility] 00 [facility] Vitamin B12 Vitamin B12 2020-0 No 1000ug Common (Cyanocobal (Cyanocobal 6-15 S pirit nayak) nayak) 00:00: - [facility] 00 [facility] Vitamin B12 Vitamin B12 2020-0 No 1000ug Common (Cyanocobal (Cyanocobal 6-15 S pirit nayak) nayak) 00:00: - [facility] 00 [facility] Vitamin B12 Vitamin B12 2020-0 No 1000ug Common (Cyanocobal (Cyanocobal 6-15 S pirit nayak) nayak) 00:00: - [facility] 00 [facility] Vitamin B12 Vitamin B12 2020-0 No 1000ug Common (Cyanocobal (Cyanocobal 6-15 S pirit nayak) nayak) 00:00: - CHI 00 [facility] Vitamin B12 Vitamin B12 2020-0 No 1000ug Common (Cyanocobal (Cyanocobal 6-15 S pirit nayak) nayak) 00:00: - CHI 00 [facility] Vitamin B12 Vitamin B12 2020-0 No 1000ug Common (Cyanocobal (Cyanocobal 6-15 S pirit nayak) nayak) 00:00: - CHI 00 [facility] Vitamin B12 Vitamin B12 2020-0 No 1000ug Common (Cyanocobal (Cyanocobal 6-15 S pirit nayak) nayak) 00:00: - CHI 00 [facility] Vitamin B12 Vitamin B12 2020-0 No 1000ug Common (Cyanocobal (Cyanocobal 6-15 S pirit nayak) nayak) 00:00: - CHI 00 [facility] Vitamin B12 Vitamin B12 2020-0 No 1000ug Common (Cyanocobal (Cyanocobal 6-15 S pirit nayak) nayak) 00:00: - CHI 00 [facility] Vitamin B12 Vitamin B12 2020-0 No 1000ug Common (Cyanocobal (Cyanocobal 6-15 S pirit nayak) nayak) 00:00: - CHI 00 [facility] Vitamin B12 Vitamin B12 1-0 No 1000ug Common (Cyanocobal (Cyanocobal 6-15 S pirit nayak) nayak) 00:00: - CHI 00 [facility] Vitamin B12 Vitamin B12 2021-0 No 1000ug Common (Cyanocobal (Cyanocobal 6-15 S pirit nayak) nayak) 00:00: - CHI 00 [facility] Vitamin B12 Vitamin B12 2020-0 No 1000ug Common (Cyanocobal (Cyanocobal 6-15 S pirit nayak) nayak) 00:00: - CHI 00 [facility] Vitamin B12 Vitamin B12 2020-0 No 1000ug Common (Cyanocobal (Cyanocobal 6-15 S pirit nayak) nayak) 00:00: - CHI 00 [facility] Vitamin B12 Vitamin B12 2020-0 No 1000ug Common (Cyanocobal (Cyanocobal 6-15 S pirit nayak) nayak) 00:00: - CHI 00 [facility] Vitamin B12 Vitamin B12 2020-0 No 1000ug Common (Cyanocobal (Cyanocobal 6-15 S pirit nayak) nayak) 00:00: - CHI 00 [facility] Vitamin B12 Vitamin B12 2020-0 No 1000ug Common (Cyanocobal (Cyanocobal 6-15 S pirit nayak) nayak) 00:00: - CHI 00 [facility] Vitamin B12 Vitamin B12 2020-0 No 1000ug Common (Cyanocobal (Cyanocobal 6-15 S pirit nayak) nayak) 00:00: - CHI 00 [facility] Vitamin B12 Vitamin B12 2020-0 No 1000ug Common (Cyanocobal (Cyanocobal 6-15 S pirit nayak) nayak) 00:00: - CHI 00 [facility] Vitamin B12 Vitamin B12 2020-0 No 1000ug Common (Cyanocobal (Cyanocobal 6-15 S pirit nayak) nayak) 00:00: - CHI 00 [facility] Vitamin B12 Vitamin B12 2020-0 No 1000ug Common (Cyanocobal (Cyanocobal 5-06 S pirit nayak) nayak) 00:00: - CHI 00 [facility] Vitamin B12 Vitamin B12 2020-0 No 1000ug Common (Cyanocobal (Cyanocobal 5-06 S pirit nayak) nayak) 00:00: - CHI 00 [facility] Vitamin B12 Vitamin B12 2020-0 No 1000ug Common (Cyanocobal (Cyanocobal 5-06 S pirit nayak) nayak) 00:00: - CHI 00 [facility] Vitamin B12 Vitamin B12 2020-0 No 1000ug Common (Cyanocobal (Cyanocobal 5-06 S pirit nayak) nayak) 00:00: - CHI 00 [facility] Vitamin B12 Vitamin B12 2020-0 No 1000ug Common (Cyanocobal (Cyanocobal 5-06 S pirit nayak) nayak) 00:00: - CHI 00 [facility] Vitamin B12 Vitamin B12 1-0 No 1000ug Common (Cyanocobal (Cyanocobal 5-06 S pirit nayak) nayak) 00:00: - CHI 00 [facility] Vitamin B12 Vitamin B12 2021-0 No 1000ug Common (Cyanocobal (Cyanocobal 5-06 S pirit nayak) nayak) 00:00: - CHI 00 [facility] Vitamin B12 Vitamin B12 2020-0 No 1000ug Common (Cyanocobal (Cyanocobal 5-06 S pirit nayak) nayak) 00:00: - CHI 00 [facility] Vitamin B12 Vitamin B12 2020-0 No 1000ug Common (Cyanocobal (Cyanocobal 5-06 S pirit nayak) nayak) 00:00: - CHI 00 [facility] Vitamin B12 Vitamin B12 2020-0 No 1000ug Common (Cyanocobal (Cyanocobal 5-06 S pirit nayak) nayak) 00:00: - CHI 00 [facility] Vitamin B12 Vitamin B12 2020-0 No 1000ug Common (Cyanocobal (Cyanocobal 5-06 S pirit nayak) nayak) 00:00: - CHI 00 [facility] Vitamin B12 Vitamin B12 2020-0 No 1000ug Common (Cyanocobal (Cyanocobal 5-06 S pirit nayak) nayak) 00:00: - CHI 00 [facility] Vitamin B12 Vitamin B12 1-0 No 1000ug Common (Cyanocobal (Cyanocobal 5-06 S pirit nayak) nayak) 00:00: - CHI 00 [facility] Vitamin B12 Vitamin B12 2021-0 No 1000ug Common (Cyanocobal (Cyanocobal 5-06 S pirit nayak) nayak) 00:00: - CHI 00 [facility] Vitamin B12 Vitamin B12 2021-0 No 1000ug Common (Cyanocobal (Cyanocobal 5-06 S pirit nayak) nayak) 00:00: - CHI 00 [facility] Vitamin B12 Vitamin B12 2021-0 No 1000ug Common (Cyanocobal (Cyanocobal 5-06 S pirit nayak) nayak) 00:00: - CHI 00 [facility] Vitamin B12 Vitamin B12 2021-0 No 1000ug Common (Cyanocobal (Cyanocobal 5-06 S pirit nayak) nayak) 00:00: - CHI 00 [facility] Vitamin B12 Vitamin B12 1-0 No 1000ug Common (Cyanocobal (Cyanocobal 5-06 S pirit nayak) nayak) 00:00: - CHI 00 [facility] Vitamin B12 Vitamin B12 2021-0 No 1000ug Common (Cyanocobal (Cyanocobal 5-06 S pirit nayak) nayak) 00:00: - CHI 00 [facility] Vitamin B12 Vitamin B12 2021-0 No 1000ug Common (Cyanocobal (Cyanocobal 5-06 S pirit nayak) nayak) 00:00: - CHI 00 [facility] Vitamin B12 Vitamin B12 1-0 No 1000ug Common (Cyanocobal (Cyanocobal 5-06 S pirit nayak) nayak) 00:00: - CHI 00 [facility] Vitamin B12 Vitamin B12 1-0 No 1000ug Common (Cyanocobal (Cyanocobal 5-06 S pirit nayak) nayak) 00:00: - CHI 00 [facility] Vitamin B12 Vitamin B12 1-0 No 1000ug Common (Cyanocobal (Cyanocobal 5-06 S pirit nayak) nayak) 00:00: - CHI 00 [facility] Vitamin B12 Vitamin B12 1-0 No 1000ug Common (Cyanocobal (Cyanocobal 5-06 S pirit nayak) nayak) 00:00: - CHI 00 [facility] Vitamin B12 Vitamin B12 2021-0 No 1000ug Common (Cyanocobal (Cyanocobal 5-06 S pirit nayak) nayak) 00:00: - CHI 00 [facility] Vitamin B12 Vitamin B12 2021-0 No 1000ug Common (Cyanocobal (Cyanocobal 5-06 S pirit nayak) nayak) 00:00: - CHI 00 [facility] Vitamin B12 Vitamin B12 2021-0 No 1000ug Common (Cyanocobal (Cyanocobal 5-06 S pirit nayak) nayak) 00:00: - CHI 00 [facility] Vitamin B12 Vitamin B12 2021-0 No 1000ug Common (Cyanocobal (Cyanocobal 5-06 S pirit nayak) nayak) 00:00: - CHI 00 [facility] Vitamin B12 Vitamin B12 2021-0 No 1000ug Common (Cyanocobal (Cyanocobal 5-06 S pirit nayak) nayak) 00:00: - CHI 00 [facility] Vitamin B12 Vitamin B12 1-0 No 1000ug Common (Cyanocobal (Cyanocobal 5-06 S pirit nayak) nayak) 00:00: - CHI 00 [facility] Vitamin B12 Vitamin B12 1-0 No 1000ug Common (Cyanocobal (Cyanocobal 5-06 S pirit nayak) nayak) 00:00: - CHI 00 [facility] Valtrex 1 Valtrex 1 2020-0 2021- No 1{table TID Valtrex 1 GM GM 10-26 05-13 t} GM 00:00: 00:00 00 :00 Vitamin B12 Vitamin B12 1-0 No 1000ug Common (Cyanocobal (Cyanocobal 3-23 S pirit nayak) nayak) 00:00: - CHI 00 [facility] Vitamin B12 Vitamin B12 1-0 No 1000ug Common (Cyanocobal (Cyanocobal 3-23 S pirit nayak) nayak) 00:00: - CHI 00 [facility] Vitamin B12 Vitamin B12 1-0 No 1000ug Common (Cyanocobal (Cyanocobal 3-23 S pirit nayak) nayak) 00:00: - CHI 00 [facility] Vitamin B12 Vitamin B12 1-0 No 1000ug Common (Cyanocobal (Cyanocobal 3-23 S pirit nayak) nayak) 00:00: - CHI 00 [facility] Vitamin B12 Vitamin B12 1-0 No 1000ug Common (Cyanocobal (Cyanocobal 3-23 S pirit nayak) nayak) 00:00: - CHI 00 [facility] Vitamin B12 Vitamin B12 2021-0 No 1000ug Common (Cyanocobal (Cyanocobal 3-23 S pirit nayak) nayak) 00:00: - CHI 00 [facility] Vitamin B12 Vitamin B12 2021-0 No 1000ug Common (Cyanocobal (Cyanocobal 3-23 S pirit nayak) nayak) 00:00: - CHI 00 [facility] Vitamin B12 Vitamin B12 2021-0 No 1000ug Common (Cyanocobal (Cyanocobal 3-23 S pirit nayak) nayak) 00:00: - CHI 00 [facility] Vitamin B12 Vitamin B12 2021-0 No 1000ug Common (Cyanocobal (Cyanocobal 3-23 S pirit nayak) nayak) 00:00: - CHI 00 [facility] Vitamin B12 Vitamin B12 1-0 No 1000ug Common (Cyanocobal (Cyanocobal 3-23 S pirit nayak) nayak) 00:00: - CHI 00 [facility] Vitamin B12 Vitamin B12 1-0 No 1000ug Common (Cyanocobal (Cyanocobal 3-23 S pirit nayak) nayak) 00:00: - CHI 00 [facility] Vitamin B12 Vitamin B12 2020-0 No 1000ug Common (Cyanocobal (Cyanocobal 3-23 S pirit nayak) nayak) 00:00: - CHI 00 [facility] Vitamin B12 Vitamin B12 2020-0 No 1000ug Common (Cyanocobal (Cyanocobal 3-23 S pirit nayak) nayak) 00:00: - CHI 00 [facility] Vitamin B12 Vitamin B12 2020-0 No 1000ug Common (Cyanocobal (Cyanocobal 3-23 S pirit nayak) nayak) 00:00: - CHI 00 [facility] Vitamin B12 Vitamin B12 2020-0 No 1000ug Common (Cyanocobal (Cyanocobal 3-23 S pirit nayak) nayak) 00:00: - CHI 00 [facility] Vitamin B12 Vitamin B12 1-0 No 1000ug Common (Cyanocobal (Cyanocobal 3-23 S pirit nayak) nayak) 00:00: - CHI 00 [facility] Vitamin B12 Vitamin B12 1-0 No 1000ug Common (Cyanocobal (Cyanocobal 3-23 S pirit nayak) nayak) 00:00: - CHI 00 [facility] Vitamin B12 Vitamin B12 2021-0 No 1000ug Common (Cyanocobal (Cyanocobal 3-23 S pirit nayak) nayak) 00:00: - CHI 00 [facility] Vitamin B12 Vitamin B12 2021-0 No 1000ug Common (Cyanocobal (Cyanocobal 3-23 S pirit nayak) nayak) 00:00: - CHI 00 [facility] Vitamin B12 Vitamin B12 2021-0 No 1000ug Common (Cyanocobal (Cyanocobal 3-23 S pirit nayak) nayak) 00:00: - CHI 00 [facility] Vitamin B12 Vitamin B12 1-0 No 1000ug Common (Cyanocobal (Cyanocobal 3-23 S pirit nayak) nayak) 00:00: - CHI 00 [facility] Vitamin B12 Vitamin B12 2020-0 No 1000ug Common (Cyanocobal (Cyanocobal 3-23 S pirit nayak) nayak) 00:00: - CHI 00 [facility] Vitamin B12 Vitamin B12 2020-0 No 1000ug Common (Cyanocobal (Cyanocobal 3-23 S pirit nayak) nayak) 00:00: - CHI 00 [facility] Vitamin B12 Vitamin B12 2020-0 No 1000ug Common (Cyanocobal (Cyanocobal 3-23 S pirit nayak) nayak) 00:00: - CHI 00 [facility] Vitamin B12 Vitamin B12 2020-0 No 1000ug Common (Cyanocobal (Cyanocobal 3-23 S pirit nayak) nayak) 00:00: - CHI 00 [facility] Vitamin B12 Vitamin B12 2020-0 No 1000ug Common (Cyanocobal (Cyanocobal 3-23 S pirit nayak) nayak) 00:00: - CHI 00 [facility] Vitamin B12 Vitamin B12 2020-0 No 1000ug Common (Cyanocobal (Cyanocobal 3-23 S pirit nayak) nayak) 00:00: - CHI 00 [facility] Vitamin B12 Vitamin B12 2020-0 No 1000ug Common (Cyanocobal (Cyanocobal 3-23 S pirit nayak) nayak) 00:00: - CHI 00 [facility] Vitamin B12 Vitamin B12 2020-0 No 1000ug Common (Cyanocobal (Cyanocobal 3-23 S pirit nayak) nayak) 00:00: - CHI 00 [facility] Vitamin B12 Vitamin B12 1-0 No 1000ug Common (Cyanocobal (Cyanocobal 3-23 S pirit nayak) nayak) 00:00: - CHI 00 [facility] Vitamin B12 Vitamin B12 2021-0 No 1000ug Common (Cyanocobal (Cyanocobal 3-23 S pirit nayak) nayak) 00:00: - CHI 00 [facility] Vitamin B12 Vitamin B12 2021-0 No 1000ug Common (Cyanocobal (Cyanocobal 2-23 S pirit nayak) nayak) 00:00: - CHI 00 [facility] Vitamin B12 Vitamin B12 1-0 No 1000ug Common (Cyanocobal (Cyanocobal 2-23 S pirit nayak) nayak) 00:00: - CHI 00 [facility] Vitamin B12 Vitamin B12 2020-0 No 1000ug Common (Cyanocobal (Cyanocobal 2-23 S pirit nayak) nayak) 00:00: - CHI 00 [facility] Vitamin B12 Vitamin B12 2020-0 No 1000ug Common (Cyanocobal (Cyanocobal 2-23 S pirit nayak) nayak) 00:00: - CHI 00 [facility] Vitamin B12 Vitamin B12 2020-0 No 1000ug Common (Cyanocobal (Cyanocobal 2-23 S pirit nayak) nayak) 00:00: - CHI 00 [facility] Vitamin B12 Vitamin B12 2020-0 No 1000ug Common (Cyanocobal (Cyanocobal 2-23 S pirit nayak) nayak) 00:00: - CHI 00 [facility] Vitamin B12 Vitamin B12 2020-0 No 1000ug Common (Cyanocobal (Cyanocobal 2-23 S pirit nayak) nayak) 00:00: - CHI 00 [facility] Vitamin B12 Vitamin B12 2020-0 No 1000ug Common (Cyanocobal (Cyanocobal 2-23 S pirit nayak) nayak) 00:00: - CHI 00 [facility] Vitamin B12 Vitamin B12 1-0 No 1000ug Common (Cyanocobal (Cyanocobal 2-23 S pirit nayak) nayak) 00:00: - CHI 00 [facility] Vitamin B12 Vitamin B12 2020-0 No 1000ug Common (Cyanocobal (Cyanocobal 2-23 S pirit nayak) nayak) 00:00: - CHI 00 [facility] Vitamin B12 Vitamin B12 2021-0 No 1000ug Common (Cyanocobal (Cyanocobal 2-23 S pirit nayak) nayak) 00:00: - CHI 00 [facility] Vitamin B12 Vitamin B12 2021-0 No 1000ug Common (Cyanocobal (Cyanocobal 2-23 S pirit nayak) nayak) 00:00: - CHI 00 [facility] Vitamin B12 Vitamin B12 2021-0 No 1000ug Common (Cyanocobal (Cyanocobal 2-23 S pirit nayak) nayak) 00:00: - CHI 00 [facility] Vitamin B12 Vitamin B12 2020-0 No 1000ug Common (Cyanocobal (Cyanocobal 2-23 S pirit nayak) nayak) 00:00: - CHI 00 [facility] Vitamin B12 Vitamin B12 2020-0 No 1000ug Common (Cyanocobal (Cyanocobal 2-23 S pirit nayak) nayak) 00:00: - CHI 00 [facility] Vitamin B12 Vitamin B12 2020-0 No 1000ug Common (Cyanocobal (Cyanocobal 2-23 S pirit nayak) nayak) 00:00: - CHI 00 [facility] Vitamin B12 Vitamin B12 2020-0 No 1000ug Common (Cyanocobal (Cyanocobal 2-23 S pirit nayak) nayak) 00:00: - CHI 00 [facility] Vitamin B12 Vitamin B12 2020-0 No 1000ug Common (Cyanocobal (Cyanocobal 2-23 S pirit nayak) nayak) 00:00: - CHI 00 [facility] Vitamin B12 Vitamin B12 2020-0 No 1000ug Common (Cyanocobal (Cyanocobal 2-23 S pirit nayak) nayak) 00:00: - CHI 00 [facility] Vitamin B12 Vitamin B12 2020-0 No 1000ug Common (Cyanocobal (Cyanocobal 2-23 S pirit nayak) nayak) 00:00: - CHI 00 [facility] Vitamin B12 Vitamin B12 2020-0 No 1000ug Common (Cyanocobal (Cyanocobal 2-23 S pirit nayak) nayak) 00:00: - CHI 00 [facility] Vitamin B12 Vitamin B12 2020-0 No 1000ug Common (Cyanocobal (Cyanocobal 2-23 S pirit nayak) nayak) 00:00: - CHI 00 [facility] Vitamin B12 Vitamin B12 2021-0 No 1000ug Common (Cyanocobal (Cyanocobal 2-23 S pirit nayak) nayak) 00:00: - CHI 00 [facility] Vitamin B12 Vitamin B12 2021-0 No 1000ug Common (Cyanocobal (Cyanocobal 2-23 S pirit nayak) nayak) 00:00: - CHI 00 [facility] Vitamin B12 Vitamin B12 2021-0 No 1000ug Common (Cyanocobal (Cyanocobal 2-23 S pirit nayak) nayak) 00:00: - CHI 00 [facility] Vitamin B12 Vitamin B12 1-0 No 1000ug Common (Cyanocobal (Cyanocobal 2-23 S pirit nayak) nayak) 00:00: - CHI 00 [facility] Vitamin B12 Vitamin B12 2021-0 No 1000ug Common (Cyanocobal (Cyanocobal 2-23 S pirit nayak) nayak) 00:00: - CHI 00 [facility] Vitamin B12 Vitamin B12 1-0 No 1000ug Common (Cyanocobal (Cyanocobal 2-23 S pirit nayak) nayak) 00:00: - CHI 00 [facility] Vitamin B12 Vitamin B12 1-0 No 1000ug Common (Cyanocobal (Cyanocobal 2-23 S pirit nayak) nayak) 00:00: - CHI 00 [facility] Vitamin B12 Vitamin B12 1-0 No 1000ug Common (Cyanocobal (Cyanocobal 2-23 S pirit nayak) nayak) 00:00: - CHI 00 [facility] Vitamin B12 Vitamin B12 2020-0 No 1000ug Common (Cyanocobal (Cyanocobal 2-23 S pirit nayak) nayak) 00:00: - CHI 00 [facility] Vitamin B12 Vitamin B12 2020-0 No 1000ug Common (Cyanocobal (Cyanocobal 2-08 S pirit nayak) nayak) 00:00: - CHI 00 [facility] Vitamin B12 Vitamin B12 1-0 No 1000ug Common (Cyanocobal (Cyanocobal 2-08 S pirit nayak) nayak) 00:00: - CHI 00 [facility] Vitamin B12 Vitamin B12 1-0 No 1000ug Common (Cyanocobal (Cyanocobal 2-08 S pirit nayak) nayak) 00:00: - CHI 00 [facility] Vitamin B12 Vitamin B12 2021-0 No 1000ug Common (Cyanocobal (Cyanocobal 2-08 S pirit nayak) nayak) 00:00: - CHI 00 [facility] Vitamin B12 Vitamin B12 2021-0 No 1000ug Common (Cyanocobal (Cyanocobal 2-08 S pirit nayak) nayak) 00:00: - CHI 00 [facility] Vitamin B12 Vitamin B12 2021-0 No 1000ug Common (Cyanocobal (Cyanocobal 2-08 S pirit nayak) nayak) 00:00: - CHI 00 [facility] Vitamin B12 Vitamin B12 2020-0 No 1000ug Common (Cyanocobal (Cyanocobal 2-08 S pirit nayak) nayak) 00:00: - CHI 00 [facility] Vitamin B12 Vitamin B12 202-0 No 1000ug Common (Cyanocobal (Cyanocobal 2-08 S pirit nayak) nayak) 00:00: - CHI 00 [facility] Vitamin B12 Vitamin B12 2020-0 No 1000ug Common (Cyanocobal (Cyanocobal 2-08 S pirit nayak) nayak) 00:00: - CHI 00 [facility] Vitamin B12 Vitamin B12 2020-0 No 1000ug Common (Cyanocobal (Cyanocobal 2-08 S pirit nayak) nayak) 00:00: - CHI 00 [facility] Vitamin B12 Vitamin B12 2020-0 No 1000ug Common (Cyanocobal (Cyanocobal 2-08 S pirit nayak) nayak) 00:00: - CHI 00 [facility] Vitamin B12 Vitamin B12 2020-0 No 1000ug Common (Cyanocobal (Cyanocobal 2-08 S pirit nayak) nayak) 00:00: - CHI 00 [facility] Vitamin B12 Vitamin B12 2020-0 No 1000ug Common (Cyanocobal (Cyanocobal 2-08 S pirit nayak) nayak) 00:00: - CHI 00 [facility] Vitamin B12 Vitamin B12 1-0 No 1000ug Common (Cyanocobal (Cyanocobal 2-08 S pirit nayak) nayak) 00:00: - CHI 00 [facility] Vitamin B12 Vitamin B12 1-0 No 1000ug Common (Cyanocobal (Cyanocobal 2-08 S pirit nayak) nayak) 00:00: - CHI 00 [facility] Vitamin B12 Vitamin B12 2021-0 No 1000ug Common (Cyanocobal (Cyanocobal 2-08 S pirit nayak) nayak) 00:00: - CHI 00 [facility] Vitamin B12 Vitamin B12 2021-0 No 1000ug Common (Cyanocobal (Cyanocobal 2-08 S pirit nayak) nayak) 00:00: - CHI 00 [facility] Vitamin B12 Vitamin B12 202-0 No 1000ug Common (Cyanocobal (Cyanocobal 2-08 S pirit nayak) nayak) 00:00: - CHI 00 [facility] Vitamin B12 Vitamin B12 2020-0 No 1000ug Common (Cyanocobal (Cyanocobal 2-08 S pirit nayak) nayak) 00:00: - CHI 00 [facility] Vitamin B12 Vitamin B12 1-0 No 1000ug Common (Cyanocobal (Cyanocobal 2-08 S pirit nayak) nayak) 00:00: - CHI 00 [facility] Vitamin B12 Vitamin B12 2020-0 No 1000ug Common (Cyanocobal (Cyanocobal 2-08 S pirit nayak) nayak) 00:00: - CHI 00 [facility] Vitamin B12 Vitamin B12 2020-0 No 1000ug Common (Cyanocobal (Cyanocobal 2-08 S pirit nayak) nayak) 00:00: - CHI 00 [facility] Vitamin B12 Vitamin B12 2020-0 No 1000ug Common (Cyanocobal (Cyanocobal 2-08 S pirit nayak) nayak) 00:00: - CHI 00 [facility] Vitamin B12 Vitamin B12 2020-0 No 1000ug Common (Cyanocobal (Cyanocobal 2-08 S pirit nayak) nayak) 00:00: - CHI 00 [facility] Vitamin B12 Vitamin B12 2020-0 No 1000ug Common (Cyanocobal (Cyanocobal 2-08 S pirit nayak) nayak) 00:00: - CHI 00 [facility] Vitamin B12 Vitamin B12 2020-0 No 1000ug Common (Cyanocobal (Cyanocobal 2-08 S pirit nayak) nayak) 00:00: - CHI 00 [facility] Vitamin B12 Vitamin B12 2020-0 No 1000ug Common (Cyanocobal (Cyanocobal 2-08 S pirit nayak) nayak) 00:00: - CHI 00 [facility] Vitamin B12 Vitamin B12 1-0 No 1000ug Common (Cyanocobal (Cyanocobal 2-08 S pirit nayak) nayak) 00:00: - CHI 00 [facility] Vitamin B12 Vitamin B12 2021-0 No 1000ug Common (Cyanocobal (Cyanocobal 2-08 S pirit nayak) nayak) 00:00: - CHI 00 [facility] Vitamin B12 Vitamin B12 202-0 No 1000ug Common (Cyanocobal (Cyanocobal 2-08 S pirit nayak) nayak) 00:00: - CHI 00 [facility] Vitamin B12 Vitamin B12 1-0 No 1000ug Common (Cyanocobal (Cyanocobal 2-08 S pirit nayak) nayak) 00:00: - CHI 00 [facility] Vitamin B12 Vitamin B12 2021-0 No 1000ug Common (Cyanocobal (Cyanocobal 1-25 S pirit nayak) nayak) 00:00: - CHI 00 [facility] Vitamin B12 Vitamin B12 2020-0 No 1000ug Common (Cyanocobal (Cyanocobal 1-25 S pirit nayak) nayak) 00:00: - CHI 00 [facility] Vitamin B12 Vitamin B12 2020-0 No 1000ug Common (Cyanocobal (Cyanocobal 1-25 S pirit nayak) nayak) 00:00: - CHI 00 [facility] Vitamin B12 Vitamin B12 2020-0 No 1000ug Common (Cyanocobal (Cyanocobal 1-25 S pirit nayak) nayak) 00:00: - CHI 00 [facility] Vitamin B12 Vitamin B12 2020-0 No 1000ug Common (Cyanocobal (Cyanocobal 1-25 S pirit nayak) nayak) 00:00: - CHI 00 [facility] Vitamin B12 Vitamin B12 2020-0 No 1000ug Common (Cyanocobal (Cyanocobal 1-25 S pirit nayak) nayak) 00:00: - CHI 00 [facility] Vitamin B12 Vitamin B12 1-0 No 1000ug Common (Cyanocobal (Cyanocobal 1-25 S pirit nayak) nayak) 00:00: - CHI 00 [facility] Vitamin B12 Vitamin B12 2021-0 No 1000ug Common (Cyanocobal (Cyanocobal 1-25 S pirit nayak) nayak) 00:00: - CHI 00 [facility] Vitamin B12 Vitamin B12 2021-0 No 1000ug Common (Cyanocobal (Cyanocobal 1-25 S pirit nayak) nayak) 00:00: - CHI 00 [facility] Vitamin B12 Vitamin B12 2021-0 No 1000ug Common (Cyanocobal (Cyanocobal 1-25 S pirit nayak) nayak) 00:00: - CHI 00 [facility] Vitamin B12 Vitamin B12 202-0 No 1000ug Common (Cyanocobal (Cyanocobal 1-25 S pirit nayak) nayak) 00:00: - CHI 00 [facility] Vitamin B12 Vitamin B12 1-0 No 1000ug Common (Cyanocobal (Cyanocobal 1-25 S pirit nayak) nayak) 00:00: - CHI 00 [facility] Vitamin B12 Vitamin B12 1-0 No 1000ug Common (Cyanocobal (Cyanocobal 1-25 S pirit nayak) nayak) 00:00: - CHI 00 [facility] Vitamin B12 Vitamin B12 1-0 No 1000ug Common (Cyanocobal (Cyanocobal 1-25 S pirit nayak) nayak) 00:00: - CHI 00 [facility] Vitamin B12 Vitamin B12 2020-0 No 1000ug Common (Cyanocobal (Cyanocobal 1-25 S pirit nayak) nayak) 00:00: - CHI 00 [facility] Vitamin B12 Vitamin B12 1-0 No 1000ug Common (Cyanocobal (Cyanocobal 1-25 S pirit nayak) nayak) 00:00: - CHI 00 [facility] Vitamin B12 Vitamin B12 2020-0 No 1000ug Common (Cyanocobal (Cyanocobal 1-25 S pirit nayak) nayak) 00:00: - CHI 00 [facility] Vitamin B12 Vitamin B12 2020-0 No 1000ug Common (Cyanocobal (Cyanocobal 1-25 S pirit nayak) nayak) 00:00: - CHI 00 [facility] Vitamin B12 Vitamin B12 1-0 No 1000ug Common (Cyanocobal (Cyanocobal 1-25 S pirit nayak) nayak) 00:00: - CHI 00 [facility] Vitamin B12 Vitamin B12 2021-0 No 1000ug Common (Cyanocobal (Cyanocobal 1-25 S pirit nayak) nayak) 00:00: - [facility] 00 [facility] Vitamin B12 Vitamin B12 2021-0 No 1000ug Common (Cyanocobal (Cyanocobal 1-25 S pirit nayak) nayak) 00:00: - [facility] 00 [facility] Vitamin B12 Vitamin B12 2021-0 No 1000ug Common (Cyanocobal (Cyanocobal 1-25 S pirit nayak) nayak) 00:00: - [facility] 00 [facility] Vitamin B12 Vitamin B12 2021-0 No 1000ug Common (Cyanocobal (Cyanocobal 1-25 S pirit nayak) nayak) 00:00: - [facility] 00 [facility] Vitamin B12 Vitamin B12 2020-0 No 1000ug Common (Cyanocobal (Cyanocobal 1-25 S pirit nayak) nayak) 00:00: - [facility] 00 [facility] Vitamin B12 Vitamin B12 2020-0 No 1000ug Common (Cyanocobal (Cyanocobal 1-25 S pirit nayak) nayak) 00:00: - [facility] 00 [facility] Vitamin B12 Vitamin B12 2020-0 No 1000ug Common (Cyanocobal (Cyanocobal 1-25 S pirit nayak) nayak) 00:00: - [facility] 00 [facility] Vitamin B12 Vitamin B12 2020-0 No 1000ug Common (Cyanocobal (Cyanocobal 1-25 S pirit nayak) nayak) 00:00: - CHI 00 [facility] Vitamin B12 Vitamin B12 2020-0 No 1000ug Common (Cyanocobal (Cyanocobal 1-25 S pirit nayak) nayak) 00:00: - CHI 00 [facility] Vitamin B12 Vitamin B12 2020-0 No 1000ug Common (Cyanocobal (Cyanocobal 1-25 S pirit nayak) nayak) 00:00: - CHI 00 [facility] Vitamin B12 Vitamin B12 2020-0 No 1000ug Common (Cyanocobal (Cyanocobal 1-25 S pirit nayak) nayak) 00:00: - CHI 00 [facility] Vitamin B12 Vitamin B12 2020-0 No 1000ug Common (Cyanocobal (Cyanocobal 1-25 S pirit nayak) nayak) 00:00: - [facility]I 00 [facility] Vitamin B12 Vitamin B12 2020-1 No 1000ug Common (Cyanocobal (Cyanocobal 2-21 S pirit nayak) nayak) 00:00: - CHI 00 [facility] Vitamin B12 Vitamin B12 2020-1 No 1000ug Common (Cyanocobal (Cyanocobal 2-21 S pirit nayak) nayak) 00:00: - [facility]I 00 [facility] Vitamin B12 Vitamin B12 2020-1 No 1000ug Common (Cyanocobal (Cyanocobal 2-21 S pirit nayak) nayak) 00:00: - CHI 00 [facility] Vitamin B12 Vitamin B12 2020-1 No 1000ug Common (Cyanocobal (Cyanocobal 2-21 S pirit nayak) nayak) 00:00: - [facility]I 00 [facility] Vitamin B12 Vitamin B12 2020-1 No 1000ug Common (Cyanocobal (Cyanocobal 2-21 S pirit nayak) nayak) 00:00: - [facility]I 00 [facility] Vitamin B12 Vitamin B12 2020-1 No 1000ug Common (Cyanocobal (Cyanocobal 2-21 S pirit nayak) nayak) 00:00: - CHI 00 [facility] Vitamin B12 Vitamin B12 2020-1 No 1000ug Common (Cyanocobal (Cyanocobal 2-21 S pirit nayak) nayak) 00:00: - [facility]I 00 [facility] Vitamin B12 Vitamin B12 2020-1 No 1000ug Common (Cyanocobal (Cyanocobal 2-21 S pirit nayak) nayak) 00:00: - [facility]I 00 [facility] Vitamin B12 Vitamin B12 2020-1 No 1000ug Common (Cyanocobal (Cyanocobal 2-21 S pirit nayak) nayak) 00:00: - [facility]I 00 [facility] Vitamin B12 Vitamin B12 2020-1 No 1000ug Common (Cyanocobal (Cyanocobal 2-21 S pirit nyaak) nayak) 00:00: - CHI 00 [facility] Vitamin B12 Vitamin B12 2020-1 No 1000ug Common (Cyanocobal (Cyanocobal 2-21 S pirit nayak) nayak) 00:00: - CHI 00 [facility] Vitamin B12 Vitamin B12 2020-1 No 1000ug Common (Cyanocobal (Cyanocobal 2-21 S pirit nayak) nayak) 00:00: - [facility]I 00 [facility] Vitamin B12 Vitamin B12 2020-1 No 1000ug Common (Cyanocobal (Cyanocobal 2-21 S pirit nayak) nayak) 00:00: - [facility]I 00 [facility] Vitamin B12 Vitamin B12 2020-1 No 1000ug Common (Cyanocobal (Cyanocobal 2-21 S pirit nayak) nayak) 00:00: - [facility]I 00 [facility] Vitamin B12 Vitamin B12 2020-1 No 1000ug Common (Cyanocobal (Cyanocobal 2-21 S pirit nayak) nayak) 00:00: - CHI 00 [facility] Vitamin B12 Vitamin B12 2020-1 No 1000ug Common (Cyanocobal (Cyanocobal 2-21 S pirit nayak) nayak) 00:00: - CHI 00 [facility] Vitamin B12 Vitamin B12 2020-1 No 1000ug Common (Cyanocobal (Cyanocobal 2-21 S pirit nayak) nayak) 00:00: - CHI 00 [facility] Vitamin B12 Vitamin B12 2020-1 No 1000ug Common (Cyanocobal (Cyanocobal 2-21 S pirit nayak) nayak) 00:00: - [facility]I 00 [facility] Vitamin B12 Vitamin B12 2020-1 No 1000ug Common (Cyanocobal (Cyanocobal 2-21 S pirit nayak) nayak) 00:00: - [facility]I 00 [facility] Vitamin B12 Vitamin B12 2020-1 No 1000ug Common (Cyanocobal (Cyanocobal 2-21 S pirit nayak) nayak) 00:00: - [facility]I 00 [facility] Vitamin B12 Vitamin B12 2020-1 No 1000ug Common (Cyanocobal (Cyanocobal 2-21 S pirit nayak) nayak) 00:00: - [facility]I 00 [facility] Vitamin B12 Vitamin B12 2020-1 No 1000ug Common (Cyanocobal (Cyanocobal 2-21 S pirit nayak) nayak) 00:00: - CHI 00 [facility] Vitamin B12 Vitamin B12 2020-1 No 1000ug Common (Cyanocobal (Cyanocobal 2-21 S pirit nayak) nayak) 00:00: - [facility]I 00 [facility] Vitamin B12 Vitamin B12 2020-1 No 1000ug Common (Cyanocobal (Cyanocobal 2-21 S pirit nayak) nayak) 00:00: - [facility]I 00 [facility] Vitamin B12 Vitamin B12 2020-1 No 1000ug Common (Cyanocobal (Cyanocobal 2-21 S pirit nayak) nayak) 00:00: - [facility]I 00 [facility] Vitamin B12 Vitamin B12 2020-1 No 1000ug Common (Cyanocobal (Cyanocobal 2-21 S pirit nayak) nayak) 00:00: - [facility]I 00 [facility] Vitamin B12 Vitamin B12 2020-1 No 1000ug Common (Cyanocobal (Cyanocobal 2-21 S pirit nayak) nayak) 00:00: - [facility]I 00 [facility] Vitamin B12 Vitamin B12 2020-1 No 1000ug Common (Cyanocobal (Cyanocobal 2-21 S pirit nayak) nayak) 00:00: - [facility]I 00 [facility] Vitamin B12 Vitamin B12 2020-1 No 1000ug Common (Cyanocobal (Cyanocobal 2-21 S pirit nayak) nayak) 00:00: - [facility]I 00 [facility] Vitamin B12 Vitamin B12 2020-1 No 1000ug Common (Cyanocobal (Cyanocobal 2-21 S pirit nayak) nayak) 00:00: - [facility]I 00 [facility] Vitamin B12 Vitamin B12 2020-1 No 1000ug Common (Cyanocobal (Cyanocobal 2-21 S pirit nayak) nayak) 00:00: - [facility]I 00 [facility] Vitamin B12 Vitamin B12 2020-1 No 1000ug Common (Cyanocobal (Cyanocobal 1-24 S pirit nayak) nayak) 00:00: - [facility]I 00 [facility] Vitamin B12 Vitamin B12 2020-1 No 1000ug Common (Cyanocobal (Cyanocobal 1-24 S pirit nayak) nayak) 00:00: - [facility]I 00 [facility] Vitamin B12 Vitamin B12 2020-1 No 1000ug Common (Cyanocobal (Cyanocobal 1-24 S pirit nayak) nayak) 00:00: - CHI 00 [facility] Vitamin B12 Vitamin B12 2020-1 No 1000ug Common (Cyanocobal (Cyanocobal 1-24 S pirit nayak) nayak) 00:00: - [facility]I 00 [facility] Vitamin B12 Vitamin B12 2020-1 No 1000ug Common (Cyanocobal (Cyanocobal 1-24 S pirit nayak) nayak) 00:00: - [facility]I 00 [facility] Vitamin B12 Vitamin B12 2020-1 No 1000ug Common (Cyanocobal (Cyanocobal 1-24 S pirit nayak) nayak) 00:00: - [facility]I 00 [facility] Vitamin B12 Vitamin B12 2020-1 No 1000ug Common (Cyanocobal (Cyanocobal 1-24 S pirit nayak) nayak) 00:00: - [facility]I 00 [facility] Vitamin B12 Vitamin B12 2020-1 No 1000ug Common (Cyanocobal (Cyanocobal 1-24 S pirit nayak) nayak) 00:00: - [facility]I 00 [facility] Vitamin B12 Vitamin B12 2020-1 No 1000ug Common (Cyanocobal (Cyanocobal 1-24 S pirit nayak) nayak) 00:00: - [facility]I 00 [facility] Vitamin B12 Vitamin B12 2020-1 No 1000ug Common (Cyanocobal (Cyanocobal 1-24 S pirit nayak) nayak) 00:00: - CHI 00 [facility] Vitamin B12 Vitamin B12 2020-1 No 1000ug Common (Cyanocobal (Cyanocobal 1-24 S pirit nayak) nayak) 00:00: - CHI 00 [facility] Vitamin B12 Vitamin B12 2020-1 No 1000ug Common (Cyanocobal (Cyanocobal 1-24 S pirit nayak) nayak) 00:00: - [facility]I 00 [facility] Vitamin B12 Vitamin B12 2020-1 No 1000ug Common (Cyanocobal (Cyanocobal 1-24 S pirit nayak) nayak) 00:00: - [facility]I 00 [facility] Vitamin B12 Vitamin B12 2020-1 No 1000ug Common (Cyanocobal (Cyanocobal 1-24 S pirit nayak) nayak) 00:00: - CHI 00 [facility] Vitamin B12 Vitamin B12 2020-1 No 1000ug Common (Cyanocobal (Cyanocobal 1-24 S pirit nayak) nayak) 00:00: - CHI 00 [facility] Vitamin B12 Vitamin B12 2020-1 No 1000ug Common (Cyanocobal (Cyanocobal 1-24 S pirit nayak) nayak) 00:00: - CHI 00 [facility] Vitamin B12 Vitamin B12 2020-1 No 1000ug Common (Cyanocobal (Cyanocobal 1-24 S pirit nayak) nayak) 00:00: - CHI 00 [facility] Vitamin B12 Vitamin B12 2020-1 No 1000ug Common (Cyanocobal (Cyanocobal 1-24 S pirit nayak) nayak) 00:00: - CHI 00 [facility] Vitamin B12 Vitamin B12 2020-1 No 1000ug Common (Cyanocobal (Cyanocobal 1-24 S pirit nayak) nayak) 00:00: - [facility]I 00 [facility] Vitamin B12 Vitamin B12 2020-1 No 1000ug Common (Cyanocobal (Cyanocobal 1-24 S pirit nayak) nayak) 00:00: - [facility]I 00 [facility] Vitamin B12 Vitamin B12 2020-1 No 1000ug Common (Cyanocobal (Cyanocobal 1-24 S pirit nayak) nayak) 00:00: - CHI 00 [facility] Vitamin B12 Vitamin B12 2020-1 No 1000ug Common (Cyanocobal (Cyanocobal 1-24 S pirit nayak) nayak) 00:00: - CHI 00 [facility] Vitamin B12 Vitamin B12 2020-1 No 1000ug Common (Cyanocobal (Cyanocobal 1-24 S pirit nayak) nayak) 00:00: - CHI 00 [facility] Vitamin B12 Vitamin B12 2020-1 No 1000ug Common (Cyanocobal (Cyanocobal 1-24 S pirit nayak) nayak) 00:00: - CHI 00 [facility] Vitamin B12 Vitamin B12 2020-1 No 1000ug Common (Cyanocobal (Cyanocobal 1-24 S pirit nayak) nayak) 00:00: - CHI 00 [facility] Vitamin B12 Vitamin B12 2020-1 No 1000ug Common (Cyanocobal (Cyanocobal 1-24 S pirit nayak) nayak) 00:00: - CHI 00 [facility] Vitamin B12 Vitamin B12 2020-1 No 1000ug Common (Cyanocobal (Cyanocobal 1-24 S pirit nayak) nayak) 00:00: - CHI 00 [facility] Vitamin B12 Vitamin B12 2020-1 No 1000ug Common (Cyanocobal (Cyanocobal 1-24 S pirit nayak) nayak) 00:00: - CHI 00 [facility] Vitamin B12 Vitamin B12 2020-1 No 1000ug Common (Cyanocobal (Cyanocobal 1-24 S pirit nayak) nayak) 00:00: - CHI 00 [facility] Vitamin B12 Vitamin B12 2020-1 No 1000ug Common (Cyanocobal (Cyanocobal 1-24 S pirit nayak) nayak) 00:00: - CHI 00 [facility] Vitamin B12 Vitamin B12 2020-1 No 1000ug Common (Cyanocobal (Cyanocobal 1-24 S pirit nayak) nayak) 00:00: - CHI 00 [facility] Vitamin B12 Vitamin B12 2020-1 No 1000ug Common (Cyanocobal (Cyanocobal 1-05 S pirit nayak) nayak) 00:00: - CHI 00 [facility] Vitamin B12 Vitamin B12 2020-1 No 1000ug Common (Cyanocobal (Cyanocobal 1-05 S pirit nayak) nayak) 00:00: - CHI 00 [facility] Vitamin B12 Vitamin B12 2020-1 No 1000ug Common (Cyanocobal (Cyanocobal 1-05 S pirit nayak) nayak) 00:00: - CHI 00 [facility] Vitamin B12 Vitamin B12 2020-1 No 1000ug Common (Cyanocobal (Cyanocobal 1-05 S pirit nayak) nayak) 00:00: - CHI 00 [facility] Vitamin B12 Vitamin B12 2020-1 No 1000ug Common (Cyanocobal (Cyanocobal 1-05 S pirit nayak) nayak) 00:00: - CHI 00 [facility] Vitamin B12 Vitamin B12 2020-1 No 1000ug Common (Cyanocobal (Cyanocobal 1-05 S pirit nayak) nayak) 00:00: - CHI 00 [facility] Vitamin B12 Vitamin B12 2020-1 No 1000ug Common (Cyanocobal (Cyanocobal 1-05 S pirit nayak) nayak) 00:00: - CHI 00 [facility] Vitamin B12 Vitamin B12 2020-1 No 1000ug Common (Cyanocobal (Cyanocobal 1-05 S pirit nayak) nayak) 00:00: - CHI 00 [facility] Vitamin B12 Vitamin B12 2020-1 No 1000ug Common (Cyanocobal (Cyanocobal 1-05 S pirit nayak) nayak) 00:00: - CHI 00 [facility] Vitamin B12 Vitamin B12 2020-1 No 1000ug Common (Cyanocobal (Cyanocobal 1-05 S pirit nayak) nayak) 00:00: - CHI 00 [facility] Vitamin B12 Vitamin B12 2020-1 No 1000ug Common (Cyanocobal (Cyanocobal 1-05 S pirit nayak) nayak) 00:00: - CHI 00 [facility] Vitamin B12 Vitamin B12 2020-1 No 1000ug Common (Cyanocobal (Cyanocobal 1-05 S pirit nayak) nayak) 00:00: - CHI 00 [facility] Vitamin B12 Vitamin B12 2020-1 No 1000ug Common (Cyanocobal (Cyanocobal 1-05 S pirit nayak) nayak) 00:00: - CHI 00 [facility] Vitamin B12 Vitamin B12 2020-1 No 1000ug Common (Cyanocobal (Cyanocobal 1-05 S pirit nayak) nayak) 00:00: - CHI 00 [facility] Vitamin B12 Vitamin B12 2020-1 No 1000ug Common (Cyanocobal (Cyanocobal 1-05 S pirit nayak) nayak) 00:00: - CHI 00 [facility] Vitamin B12 Vitamin B12 2020-1 No 1000ug Common (Cyanocobal (Cyanocobal 1-05 S pirit nayak) nayak) 00:00: - CHI 00 [facility] Vitamin B12 Vitamin B12 2020-1 No 1000ug Common (Cyanocobal (Cyanocobal 1-05 S pirit nayak) nayak) 00:00: - CHI 00 [facility] Vitamin B12 Vitamin B12 2020-1 No 1000ug Common (Cyanocobal (Cyanocobal 1-05 S pirit nayak) nayak) 00:00: - CHI 00 [facility] Vitamin B12 Vitamin B12 2020-1 No 1000ug Common (Cyanocobal (Cyanocobal 1-05 S pirit nayak) nayak) 00:00: - CHI 00 [facility] Vitamin B12 Vitamin B12 2020-1 No 1000ug Common (Cyanocobal (Cyanocobal 1-05 S pirit nayak) nayak) 00:00: - CHI 00 [facility] Vitamin B12 Vitamin B12 2020-1 No 1000ug Common (Cyanocobal (Cyanocobal 1-05 S pirit nayak) nayak) 00:00: - CHI 00 [facility] Vitamin B12 Vitamin B12 2020-1 No 1000ug Common (Cyanocobal (Cyanocobal 1-05 S pirit nayak) nayak) 00:00: - CHI 00 [facility] Vitamin B12 Vitamin B12 2020-1 No 1000ug Common (Cyanocobal (Cyanocobal 1-05 S pirit nayak) nayak) 00:00: - CHI 00 [facility] Vitamin B12 Vitamin B12 2020-1 No 1000ug Common (Cyanocobal (Cyanocobal 1-05 S pirit nayak) nayak) 00:00: - CHI 00 [facility] Vitamin B12 Vitamin B12 2020-1 No 1000ug Common (Cyanocobal (Cyanocobal 1-05 S pirit nayak) nayak) 00:00: - CHI 00 [facility] Vitamin B12 Vitamin B12 2020-1 No 1000ug Common (Cyanocobal (Cyanocobal 1-05 S pirit nayak) nayak) 00:00: - CHI 00 [facility] Vitamin B12 Vitamin B12 2020-1 No 1000ug Common (Cyanocobal (Cyanocobal 1-05 S pirit nayak) nayak) 00:00: - CHI 00 [facility] Vitamin B12 Vitamin B12 2020-1 No 1000ug Common (Cyanocobal (Cyanocobal 1-05 S pirit nayak) nayak) 00:00: - CHI 00 [facility] Vitamin B12 Vitamin B12 2020-1 No 1000ug Common (Cyanocobal (Cyanocobal 1-05 S pirit nayak) nayak) 00:00: - CHI 00 [facility] Vitamin B12 Vitamin B12 2020-1 No 1000ug Common (Cyanocobal (Cyanocobal 1-05 S pirit nayak) nayak) 00:00: - CHI 00 [facility] Vitamin B12 Vitamin B12 2020-1 No 1000ug Common (Cyanocobal (Cyanocobal 1-05 S pirit nayak) nayak) 00:00: - CHI 00 [facility] Sulfamethox Sulfamethox 2020- 2020- No 1{table BID Sulfametho azole-Trime azole-Trime 1-05 11-15 t} xazole-Tri thoprim thoprim 00:00: 00:00 methoprim 800-160 MG 800-160 MG 00 :00 800-160 MG Vitamin B12 Vitamin B12 2020-1 No 1000ug Common (Cyanocobal (Cyanocobal 0-22 S pirit nayak) nayak) 00:00: - CHI 00 [facility] Vitamin B12 Vitamin B12 2020-1 No 1000ug Common (Cyanocobal (Cyanocobal 0-22 S pirit nayak) nayak) 00:00: - CHI 00 [facility] Vitamin B12 Vitamin B12 2020-1 No 1000ug Common (Cyanocobal (Cyanocobal 0-22 S pirit nayak) nayak) 00:00: - CHI 00 [facility] Vitamin B12 Vitamin B12 2020-1 No 1000ug Common (Cyanocobal (Cyanocobal 0-22 S pirit nayak) nayak) 00:00: - CHI 00 [facility] Vitamin B12 Vitamin B12 2020-1 No 1000ug Common (Cyanocobal (Cyanocobal 0-22 S pirit nayak) nayak) 00:00: - CHI 00 [facility] Vitamin B12 Vitamin B12 2020-1 No 1000ug Common (Cyanocobal (Cyanocobal 0-22 S pirit nayak) nayak) 00:00: - CHI 00 [facility] Vitamin B12 Vitamin B12 2020-1 No 1000ug Common (Cyanocobal (Cyanocobal 0-22 S pirit nayak) nayak) 00:00: - CHI 00 [facility] Vitamin B12 Vitamin B12 2020-1 No 1000ug Common (Cyanocobal (Cyanocobal 0-22 S pirit nayak) nayak) 00:00: - CHI 00 [facility] Vitamin B12 Vitamin B12 2020-1 No 1000ug Common (Cyanocobal (Cyanocobal 0-22 S pirit nayak) nayak) 00:00: - CHI 00 [facility] Vitamin B12 Vitamin B12 2020-1 No 1000ug Common (Cyanocobal (Cyanocobal 0-22 S pirit nayak) nayak) 00:00: - CHI 00 [facility] Vitamin B12 Vitamin B12 2020-1 No 1000ug Common (Cyanocobal (Cyanocobal 0-22 S pirit nayak) nayak) 00:00: - CHI 00 [facility] Vitamin B12 Vitamin B12 2020-1 No 1000ug Common (Cyanocobal (Cyanocobal 0-22 S pirit nayak) nayak) 00:00: - CHI 00 [facility] Vitamin B12 Vitamin B12 2020-1 No 1000ug Common (Cyanocobal (Cyanocobal 0-22 S pirit nayak) nayak) 00:00: - CHI 00 [facility] Vitamin B12 Vitamin B12 2020-1 No 1000ug Common (Cyanocobal (Cyanocobal 0-22 S pirit nayak) nayak) 00:00: - CHI 00 [facility] Vitamin B12 Vitamin B12 2020-1 No 1000ug Common (Cyanocobal (Cyanocobal 0-22 S pirit nayak) nayak) 00:00: - CHI 00 [facility] Vitamin B12 Vitamin B12 2020-1 No 1000ug Common (Cyanocobal (Cyanocobal 0-22 S pirit nayak) nayak) 00:00: - CHI 00 [facility] Vitamin B12 Vitamin B12 2020-1 No 1000ug Common (Cyanocobal (Cyanocobal 0-22 S pirit nayak) nayak) 00:00: - CHI 00 [facility] Vitamin B12 Vitamin B12 2020-1 No 1000ug Common (Cyanocobal (Cyanocobal 0-22 S pirit nayak) nayak) 00:00: - CHI 00 [facility] Vitamin B12 Vitamin B12 2020-1 No 1000ug Common (Cyanocobal (Cyanocobal 0-22 S pirit nayak) nayak) 00:00: - CHI 00 [facility] Vitamin B12 Vitamin B12 2020-1 No 1000ug Common (Cyanocobal (Cyanocobal 0-22 S pirit nayak) nayak) 00:00: - CHI 00 [facility] Vitamin B12 Vitamin B12 2020-1 No 1000ug Common (Cyanocobal (Cyanocobal 0-22 S pirit nayak) nayak) 00:00: - CHI 00 [facility] Vitamin B12 Vitamin B12 2020-1 No 1000ug Common (Cyanocobal (Cyanocobal 0-22 S pirit nayak) nayak) 00:00: - CHI 00 [facility] Vitamin B12 Vitamin B12 2020-1 No 1000ug Common (Cyanocobal (Cyanocobal 0-22 S pirit nayak) nayak) 00:00: - CHI 00 [facility] Vitamin B12 Vitamin B12 2020-1 No 1000ug Common (Cyanocobal (Cyanocobal 0-22 S pirit nayak) nayak) 00:00: - CHI 00 [facility] Vitamin B12 Vitamin B12 2020-1 No 1000ug Common (Cyanocobal (Cyanocobal 0-22 S pirit nayak) nayak) 00:00: - CHI 00 [facility] Vitamin B12 Vitamin B12 2020-1 No 1000ug Common (Cyanocobal (Cyanocobal 0-22 S pirit nayak) nayak) 00:00: - CHI 00 [facility] Vitamin B12 Vitamin B12 2020-1 No 1000ug Common (Cyanocobal (Cyanocobal 0-22 S pirit nayak) nayak) 00:00: - CHI 00 [facility] Vitamin B12 Vitamin B12 2020-1 No 1000ug Common (Cyanocobal (Cyanocobal 0-22 S pirit nayak) nayak) 00:00: - CHI 00 [facility] Vitamin B12 Vitamin B12 2020-1 No 1000ug Common (Cyanocobal (Cyanocobal 0-22 S pirit nayak) nayak) 00:00: - CHI 00 [facility] Vitamin B12 Vitamin B12 2020-1 No 1000ug Common (Cyanocobal (Cyanocobal 0-22 S pirit nayak) nayak) 00:00: - CHI 00 [facility] Vitamin B12 Vitamin B12 2020-1 No 1000ug Common (Cyanocobal (Cyanocobal 0-22 S pirit nayak) nayak) 00:00: - CHI 00 [facility] Vitamin B12 Vitamin B12 2020-1 No 1000ug Common (Cyanocobal (Cyanocobal 0-08 S pirit nayak) nayak) 00:00: - CHI 00 [facility] Vitamin B12 Vitamin B12 2020-1 No 1000ug Common (Cyanocobal (Cyanocobal 0-08 S pirit nayak) nayak) 00:00: - CHI 00 [facility] Vitamin B12 Vitamin B12 2020-1 No 1000ug Common (Cyanocobal (Cyanocobal 0-08 S pirit nayak) nayak) 00:00: - CHI 00 [facility] Vitamin B12 Vitamin B12 2020-1 No 1000ug Common (Cyanocobal (Cyanocobal 0-08 S pirit nayak) nayak) 00:00: - CHI 00 [facility] Vitamin B12 Vitamin B12 2020-1 No 1000ug Common (Cyanocobal (Cyanocobal 0-08 S pirit anyak) nayak) 00:00: - CHI 00 [facility] Vitamin B12 Vitamin B12 2020-1 No 1000ug Common (Cyanocobal (Cyanocobal 0-08 S pirit nayak) nayak) 00:00: - CHI 00 [facility] Vitamin B12 Vitamin B12 2020-1 No 1000ug Common (Cyanocobal (Cyanocobal 0-08 S pirit nayak) nayak) 00:00: - CHI 00 [facility] Vitamin B12 Vitamin B12 2020-1 No 1000ug Common (Cyanocobal (Cyanocobal 0-08 S pirit nayak) nayak) 00:00: - CHI 00 [facility] Vitamin B12 Vitamin B12 2020-1 No 1000ug Common (Cyanocobal (Cyanocobal 0-08 S pirit nayak) nayak) 00:00: - CHI 00 [facility] Vitamin B12 Vitamin B12 2020-1 No 1000ug Common (Cyanocobal (Cyanocobal 0-08 S pirit nayak) nayak) 00:00: - CHI 00 [facility] Vitamin B12 Vitamin B12 2020-1 No 1000ug Common (Cyanocobal (Cyanocobal 0-08 S pirit nayak) nayak) 00:00: - CHI 00 [facility] Vitamin B12 Vitamin B12 2020-1 No 1000ug Common (Cyanocobal (Cyanocobal 0-08 S pirit nayak) nayak) 00:00: - CHI 00 [facility] Vitamin B12 Vitamin B12 2020-1 No 1000ug Common (Cyanocobal (Cyanocobal 0-08 S pirit nayak) nayak) 00:00: - CHI 00 [facility] Vitamin B12 Vitamin B12 2020-1 No 1000ug Common (Cyanocobal (Cyanocobal 0-08 S pirit nayak) nayak) 00:00: - CHI 00 [facility] Vitamin B12 Vitamin B12 2020-1 No 1000ug Common (Cyanocobal (Cyanocobal 0-08 S pirit nayak) nayak) 00:00: - CHI 00 [facility] Vitamin B12 Vitamin B12 2020-1 No 1000ug Common (Cyanocobal (Cyanocobal 0-08 S pirit nayak) nayak) 00:00: - CHI 00 [facility] Vitamin B12 Vitamin B12 2020-1 No 1000ug Common (Cyanocobal (Cyanocobal 0-08 S pirit nayak) nayak) 00:00: - CHI 00 [facility] Vitamin B12 Vitamin B12 2020-1 No 1000ug Common (Cyanocobal (Cyanocobal 0-08 S pirit nayak) nayak) 00:00: - CHI 00 [facility] Vitamin B12 Vitamin B12 2020-1 No 1000ug Common (Cyanocobal (Cyanocobal 0-08 S pirit nayak) nayak) 00:00: - CHI 00 [facility] Vitamin B12 Vitamin B12 2020-1 No 1000ug Common (Cyanocobal (Cyanocobal 0-08 S pirit nayak) nayak) 00:00: - CHI 00 [facility] Vitamin B12 Vitamin B12 2020-1 No 1000ug Common (Cyanocobal (Cyanocobal 0-08 S pirit nayak) nayak) 00:00: - CHI 00 [facility] Vitamin B12 Vitamin B12 2020-1 No 1000ug Common (Cyanocobal (Cyanocobal 0-08 S pirit nayak) nayak) 00:00: - CHI 00 [facility] Vitamin B12 Vitamin B12 2020-1 No 1000ug Common (Cyanocobal (Cyanocobal 0-08 S pirit nayak) nayak) 00:00: - CHI 00 [facility] Vitamin B12 Vitamin B12 2020-1 No 1000ug Common (Cyanocobal (Cyanocobal 0-08 S pirit nayak) nayak) 00:00: - CHI 00 [facility] Vitamin B12 Vitamin B12 2020-1 No 1000ug Common (Cyanocobal (Cyanocobal 0-08 S pirit nayak) nayak) 00:00: - CHI 00 [facility] Vitamin B12 Vitamin B12 2020-1 No 1000ug Common (Cyanocobal (Cyanocobal 0-08 S pirit nayak) nayak) 00:00: - CHI 00 [facility] Vitamin B12 Vitamin B12 2020-1 No 1000ug Common (Cyanocobal (Cyanocobal 0-08 S pirit nayak) nayak) 00:00: - CHI 00 [facility] Vitamin B12 Vitamin B12 2020-1 No 1000ug Common (Cyanocobal (Cyanocobal 0-08 S pirit nayak) nayak) 00:00: - CHI 00 [facility] Vitamin B12 Vitamin B12 2020-1 No 1000ug Common (Cyanocobal (Cyanocobal 0-08 S pirit nayak) nayak) 00:00: - CHI 00 [facility] Vitamin B12 Vitamin B12 2020-1 No 1000ug Common (Cyanocobal (Cyanocobal 0-08 S pirit nayak) naayk) 00:00: - [facility] 00 [facility] Vitamin B12 Vitamin B12 2020-1 No 1000ug Common (Cyanocobal (Cyanocobal 0-08 S pirit nayak) nayak) 00:00: - [facility] 00 [facility] Azithromyci Azithromyci 2020-1 2020- No QD Azithromyc n 250 MG n 250 MG 0-06 10-11 in 250 MG 00:00: 00:00 00 :00 Azithromyci Azithromyci 2020-1 2020- No QD Azithromyc n 250 MG n 250 MG 0-06 10-11 in 250 MG 00:00: 00:00 00 :00 Vitamin B12 Vitamin B12 2020-0 No 1000ug Common (Cyanocobal (Cyanocobal 9-24 S pirit nayak) nayak) 00:00: - [facility] 00 [facility] Vitamin B12 Vitamin B12 2020-0 No 1000ug Common (Cyanocobal (Cyanocobal 9-24 S pirit nayak) nayak) 00:00: - [facility] 00 [facility] Vitamin B12 Vitamin B12 2020-0 No 1000ug Common (Cyanocobal (Cyanocobal 9-24 S pirit nayak) nayak) 00:00: - [facility] 00 [facility] Vitamin B12 Vitamin B12 2020-0 No 1000ug Common (Cyanocobal (Cyanocobal 9-24 S pirit nayak) nayak) 00:00: - [facility] 00 [facility] Vitamin B12 Vitamin B12 2020-0 No 1000ug Common (Cyanocobal (Cyanocobal 9-24 S pirit nayak) nayak) 00:00: - [facility] 00 [facility] Vitamin B12 Vitamin B12 2020-0 No 1000ug Common (Cyanocobal (Cyanocobal 9-24 S pirit nayak) nayak) 00:00: - [facility] 00 [facility] Vitamin B12 Vitamin B12 2020-0 No 1000ug Common (Cyanocobal (Cyanocobal 9-24 S pirit nayak) nayak) 00:00: - [facility] 00 [facility] Vitamin B12 Vitamin B12 2020-0 No 1000ug Common (Cyanocobal (Cyanocobal 9-24 S pirit nayak) nayak) 00:00: - [facility] 00 [facility] Vitamin B12 Vitamin B12 2020-0 No 1000ug Common (Cyanocobal (Cyanocobal 9-24 S pirit nayak) nayak) 00:00: - [facility] 00 [facility] Vitamin B12 Vitamin B12 2020-0 No 1000ug Common (Cyanocobal (Cyanocobal 9-24 S pirit nayak) nayak) 00:00: - [facility] 00 [facility] Vitamin B12 Vitamin B12 2020-0 No 1000ug Common (Cyanocobal (Cyanocobal 9-24 S pirit nayak) nayak) 00:00: - [facility] 00 [facility] Vitamin B12 Vitamin B12 2020-0 No 1000ug Common (Cyanocobal (Cyanocobal 9-24 S pirit nayak) nayak) 00:00: - [facility] 00 [facility] Vitamin B12 Vitamin B12 2020-0 No 1000ug Common (Cyanocobal (Cyanocobal 9-24 S pirit nayak) nayak) 00:00: - [facility] 00 [facility] Vitamin B12 Vitamin B12 2020-0 No 1000ug Common (Cyanocobal (Cyanocobal 9-24 S pirit nayak) nayak) 00:00: - [facility] 00 [facility] Vitamin B12 Vitamin B12 2020-0 No 1000ug Common (Cyanocobal (Cyanocobal 9-24 S pirit nayak) nayak) 00:00: - [facility] 00 [facility] Vitamin B12 Vitamin B12 2020-0 No 1000ug Common (Cyanocobal (Cyanocobal 9-24 S pirit nayak) nayak) 00:00: - [facility] 00 [facility] Vitamin B12 Vitamin B12 2020-0 No 1000ug Common (Cyanocobal (Cyanocobal 9-24 S pirit nayak) nayak) 00:00: - [facility] 00 [facility] Vitamin B12 Vitamin B12 2020-0 No 1000ug Common (Cyanocobal (Cyanocobal 9-24 S pirit nayak) nayak) 00:00: - [facility] 00 [facility] Vitamin B12 Vitamin B12 2020-0 No 1000ug Common (Cyanocobal (Cyanocobal 9-24 S pirit nayak) nayak) 00:00: - [facility] 00 [facility] Vitamin B12 Vitamin B12 2020-0 No 1000ug Common (Cyanocobal (Cyanocobal 9-24 S pirit nayak) nayak) 00:00: - [facility] 00 [facility] Vitamin B12 Vitamin B12 2020-0 No 1000ug Common (Cyanocobal (Cyanocobal 9-24 S pirit nayak) nayak) 00:00: - [facility] 00 [facility] Vitamin B12 Vitamin B12 2020-0 No 1000ug Common (Cyanocobal (Cyanocobal 9-24 S pirit nayak) nayak) 00:00: - [facility] 00 [facility] Vitamin B12 Vitamin B12 2020-0 No 1000ug Common (Cyanocobal (Cyanocobal 9-24 S pirit nayak) nayak) 00:00: - [facility] 00 [facility] Vitamin B12 Vitamin B12 2020-0 No 1000ug Common (Cyanocobal (Cyanocobal 9-24 S pirit nayak) nayak) 00:00: - [facility] 00 [facility] Vitamin B12 Vitamin B12 2020-0 No 1000ug Common (Cyanocobal (Cyanocobal 9-24 S pirit nayak) nayak) 00:00: - [facility] 00 [facility] Vitamin B12 Vitamin B12 2020-0 No 1000ug Common (Cyanocobal (Cyanocobal 9-24 S pirit nayak) nayak) 00:00: - [facility] 00 [facility] Vitamin B12 Vitamin B12 2020-0 No 1000ug Common (Cyanocobal (Cyanocobal 9-24 S pirit nayak) nayak) 00:00: - [facility] 00 [facility] Vitamin B12 Vitamin B12 2020-0 No 1000ug Common (Cyanocobal (Cyanocobal 9-24 S pirit nayak) nayak) 00:00: - [facility] 00 [facility] Vitamin B12 Vitamin B12 2020-0 No 1000ug Common (Cyanocobal (Cyanocobal 9-24 S pirit nayak) nayak) 00:00: - [facility] 00 [facility] Vitamin B12 Vitamin B12 2020-0 No 1000ug Common (Cyanocobal (Cyanocobal 9-24 S pirit nayak) nayak) 00:00: - [facility] 00 [facility] Vitamin B12 Vitamin B12 2020-0 No 1000ug Common (Cyanocobal (Cyanocobal 9-24 S pirit nayak) nayak) 00:00: - [facility] 00 [facility] Vitamin D3 Vitamin D3 2020-0 2020- No 1{capsu Vitamin D3 92518 UNIT [id number] UNIT 03-15 12-21 le} [id number] UNIT 00:00: 00:00 00 :00 Vitamin D3 Vitamin D3 2020-0 2020- No 1{capsu Vitamin D3 87499 UNIT [id number] UNIT 03-15 12- le} [id number] UNIT 00:00: 00:00 00 :00 Vitamin D3 Vitamin D3 2020-0 2020- No 1{capsu Vitamin D3 62132 UNIT 10309 UNIT 03-15 12-21 le} [id number] UNIT 00:00: 00:00 00 :00 Vitamin D3 Vitamin D3 2020-0 2020- No 1{capsu Vitamin D3 39173 UNIT [id number] UNIT 03-15 12-21 le} [id number] UNIT 00:00: 00:00 00 :00 Vitamin D3 Vitamin D3 2020-0 2020- No 1{capsu Vitamin D3 22413 UNIT [id number] UNIT 03-15 le} [id number] UNIT 00:00: 00:00 00 :00 Scopolamine Scopolamine 2020-0 2020- No [place] 1 patch to Common 02-18 [facility] 00:00: 00:00 behind the - [facility] 00 :00 ear as [facility] Scopolamine Scopolamine 2020-0 2020- No Scopolamin 1 MG/3DAYS 1 MG/3DAYS 02-18 e 1 00:00: 00:00 MG/3DAYS 00 :00 Tamsulosin Tamsulosin 2020-0 2020- No [place] 1 capsule Common HCl HCl 8-28 09-27 [facility] 00:00: 00:00 - [facility] 00 :00 [facility] Tamsulosin Tamsulosin 2020-0 2020- No 1{capsu QD Tamsulosin HCl 0.4 MG HCl 0.4 MG 02-17 le} HCl 0.4 MG 00:00: 00:00 00 :00 Nystatin Nystatin 2019-0 Yes Tonio 4 - 6 ml Common 5-11 [facility] swish, [facility] 00:00: retain in - [facility] [address] [facility] [place] swallow tamsulosin 2019-0 Yes [id number] .4mg Take 1 U nivers 0.4 mg 24 3-26 capsule by ity of hr capsule 00:00: mouth [place] 00 daily. [facility] tamsulosin 2020-0 Yes [id number] .4mg Take 1 U nivers 0.4 mg 24 3-26 capsule by ity of hr capsule 00:00: mouth [place] 00 daily. [facility] tamsulosin 2020-0 Yes [id number] .4mg Take 1 U nivers 0.4 mg 24 3-26 capsule by ity of hr capsule 00:00: mouth [place] 00 daily. [facility] tamsulosin 2020-0 Yes [id number] .4mg Take 1 U nivers 0.4 mg 24 3-26 capsule by ity of hr capsule 00:00: mouth [place] 00 daily. [facility] tamsulosin 2020-0 Yes [id number] .4mg Take 1 U nivers 0.4 mg 24 3-26 capsule by ity of hr capsule 00:00: mouth [place] 00 daily. [facility] tamsulosin 2020-0 Yes [id number] .4mg Take 1 U nivers 0.4 mg 24 3-26 capsule by ity of hr capsule 00:00: mouth [place] 00 daily. [facility] tamsulosin 2020-0 Yes [id number] .4mg Take 1 U nivers 0.4 mg 24 3-26 capsule by ity of hr capsule 00:00: mouth [place] 00 daily. [facility] tamsulosin 2020-0 Yes [id number] .4mg Take 1 U nivers 0.4 mg 24 3-26 capsule by ity of hr capsule 00:00: mouth [place] 00 daily. [facility] tamsulosin 2020-0 Yes [id number] .4mg Take 1 U nivers 0.4 mg 24 3-26 capsule by ity of hr capsule 00:00: mouth [place] 00 daily. [facility] tamsulosin 2020-0 Yes [id number] .4mg Take 1 U nivers 0.4 mg 24 3-26 capsule by ity of hr capsule 00:00: mouth [place] 00 daily. [facility] tamsulosin 2020-0 Yes [id number] .4mg Take 1 U nivers 0.4 mg 24 3-26 capsule by ity of hr capsule 00:00: mouth [place] 00 daily. [facility] tamsulosin 2020-0 Yes [id number] .4mg Take 1 U nivers 0.4 mg 24 3-26 capsule by ity of hr capsule 00:00: mouth [place] 00 daily. [facility] tamsulosin 2020-0 Yes [id number] .4mg Take 1 U nivers 0.4 mg 24 3-26 capsule by ity of hr capsule 00:00: mouth [place] 00 daily. [facility] tamsulosin 2020-0 Yes [id number] .4mg Take 1 U nivers 0.4 mg 24 3-26 capsule by ity of hr capsule 00:00: mouth [place] 00 daily. [facility] tamsulosin 2020-0 Yes [id number] .4mg Take 1 U nivers 0.4 mg 24 3-26 capsule by ity of hr capsule 00:00: mouth [place] 00 daily. [facility] tamsulosin 2020-0 Yes [id number] .4mg Take 1 U nivers 0.4 mg 24 3-26 capsule by ity of hr capsule 00:00: mouth [place] 00 daily. [facility] tamsulosin 2020-0 Yes [id number] .4mg Take 1 U nivers 0.4 mg 24 3-26 capsule by ity of hr capsule 00:00: mouth [place] 00 daily. [facility] tamsulosin 2020-0 Yes [id number] .4mg Take 1 U nivers 0.4 mg 24 3-26 capsule by ity of hr capsule 00:00: mouth [place] 00 daily. [facility] tamsulosin 2020-0 Yes [id number] .4mg Take 1 U nivers 0.4 mg 24 3-26 capsule by ity of hr capsule 00:00: mouth [place] 00 daily. [facility] tamsulosin 2020-0 Yes [id number] .4mg Take 1 U nivers 0.4 mg 24 3-26 capsule by ity of hr capsule 00:00: mouth [place] 00 daily. [facility] tamsulosin 2020-0 Yes [id number] .4mg Take 1 U nivers 0.4 mg 24 3-26 capsule by ity of hr capsule 00:00: mouth [place] 00 daily. [facility] tamsulosin 2020-0 Yes [id number] .4mg Take 1 U nivers 0.4 mg 24 3-26 capsule by ity of hr capsule 00:00: mouth [place] 00 daily. [facility] tamsulosin 2020-0 Yes [id number] .4mg Take 1 U nivers 0.4 mg 24 3-26 capsule by ity of hr capsule 00:00: mouth [place] 00 daily. [facility] tamsulosin 2020-0 Yes [id number] .4mg Take 1 U nivers 0.4 mg 24 3-26 capsule by ity of hr capsule 00:00: mouth [place] 00 daily. [facility] tamsulosin 2020-0 Yes [id number] .4mg Take 1 U nivers 0.4 mg 24 3-26 capsule by ity of hr capsule 00:00: mouth [place] 00 daily. [facility] tamsulosin 2020-0 Yes [id number] .4mg Take 1 U nivers 0.4 mg 24 3-26 capsule by ity of hr capsule 00:00: mouth [place] 00 daily. [facility] tamsulosin 2020-0 Yes [id number] .4mg Take 1 U nivers 0.4 mg 24 3-26 capsule by ity of hr capsule 00:00: mouth [place] 00 daily. [facility] tamsulosin 2020-0 Yes [id number] .4mg Take 1 U nivers 0.4 mg 24 3-26 capsule by ity of hr capsule 00:00: mouth [place] 00 daily. [facility] tamsulosin 2020-0 Yes [id number] .4mg Take 1 U nivers 0.4 mg 24 3-26 capsule by ity of hr capsule 00:00: mouth [place] 00 daily. [facility] tamsulosin 2020-0 Yes [id number] .4mg Take 1 U nivers 0.4 mg 24 3-26 capsule by ity of hr capsule 00:00: mouth [place] 00 daily. [facility] tamsulosin 2020-0 Yes [id number] .4mg Take 1 U nivers 0.4 mg 24 3-26 capsule by ity of hr capsule 00:00: mouth [place] 00 daily. [facility] tamsulosin 2020-0 Yes [id number] .4mg Take 1 U nivers 0.4 mg 24 3-26 capsule by ity of hr capsule 00:00: mouth [place] 00 daily. [facility] tamsulosin 2020-0 Yes [id number] .4mg Take 1 U nivers 0.4 mg 24 3-26 capsule by ity of hr capsule 00:00: mouth [place] 00 daily. [facility] tamsulosin 2020-0 Yes [id number] .4mg Take 1 U nivers 0.4 mg 24 3-26 capsule by ity of hr capsule 00:00: mouth [place] 00 daily. [facility] ketorolac 2020-0 Yes [id number] 10mg Take 1 Un jackie 10 mg 3-22 tablet by ity of tablet 00:00: mouth [place] 00 every 6 Medical (six) Branch hours as needed for Pain (scale 7-10) (ONLY WHEN IN breakthrou gh PAIN, avoid use if pain tolerable) . ondansetron 2020-0 Yes [id number] 4mg Take 1 [facility] 4 mg tablet 3-22 tablet by ity of 00:00: mouth [place] 00 every 8 Medical (eight) Branch hours as needed for Nausea and Vomiting (N/V). ketorolac 2020-0 Yes [id number] 10mg Take 1 Un jackie 10 mg 3-22 tablet by ity of tablet 00:00: mouth [place] 00 every 6 Medical (six) Branch hours as needed for Pain (scale 7-10) (ONLY WHEN IN breakthrou gh PAIN, avoid use if pain tolerable) . ondansetron 2020-0 Yes [id number] 4mg Take 1 [facility] 4 mg tablet 3-22 tablet by ity of 00:00: mouth [place] 00 every 8 Medical (eight) Branch hours as needed for Nausea and Vomiting (N/V). ketorolac 2020-0 Yes [id number] 10mg Take 1 Un jackie 10 mg 3-22 tablet by ity of tablet 00:00: mouth [place] 00 every 6 Medical (six) Branch hours as needed for Pain (scale 7-10) (ONLY WHEN IN breakthrou gh PAIN, avoid use if pain tolerable) . ondansetron 2020-0 Yes [id number] 4mg Take 1 [facility] 4 mg tablet 3-22 tablet by ity of 00:00: mouth [place] 00 every 8 Medical (eight) Branch hours as needed for Nausea and Vomiting (N/V). ketorolac 2020-0 Yes [id number] 10mg Take 1 Un jackie 10 mg 3-22 tablet by ity of tablet 00:00: mouth [place] 00 every 6 Medical (six) Branch hours as needed for Pain (scale 7-10) (ONLY WHEN IN breakthrou gh PAIN, avoid use if pain tolerable) . ondansetron 2020-0 Yes [id number] 4mg Take 1 [facility] 4 mg tablet 3-22 tablet by ity of 00:00: mouth [place] 00 every 8 Medical (eight) Branch hours as needed for Nausea and Vomiting (N/V). ketorolac 2020-0 Yes [id number] 10mg Take 1 Un jackie 10 mg 3-22 tablet by ity of tablet 00:00: mouth [place] 00 every 6 Medical (six) Branch hours as needed for Pain (scale 7-10) (ONLY WHEN IN breakthrou gh PAIN, avoid use if pain tolerable) . ondansetron 2020-0 Yes [id number] 4mg Take 1 [facility] 4 mg tablet 3-22 tablet by ity of 00:00: mouth [place] 00 every 8 Medical (eight) Branch hours as needed for Nausea and Vomiting (N/V). ketorolac 2020-0 Yes [id number] 10mg Take 1 Un jackie 10 mg 3-22 tablet by ity of tablet 00:00: mouth [place] 00 every 6 Medical (six) Branch hours as needed for Pain (scale 7-10) (ONLY WHEN IN breakthrou gh PAIN, avoid use if pain tolerable) . ondansetron 2020-0 Yes [id number] 4mg Take 1 [facility] 4 mg tablet 3-22 tablet by ity of 00:00: mouth [place] 00 every 8 Medical (eight) Branch hours as needed for Nausea and Vomiting (N/V). ketorolac 2020-0 Yes [id number] 10mg Take 1 Un jackie 10 mg 3-22 tablet by ity of tablet 00:00: mouth [place] 00 every 6 Medical (six) Branch hours as needed for Pain (scale 7-10) (ONLY WHEN IN breakthrou gh PAIN, avoid use if pain tolerable) . ondansetron 2020-0 Yes [id number] 4mg Take 1 [facility] 4 mg tablet 3-22 tablet by ity of 00:00: mouth [place] 00 every 8 Medical (eight) Branch hours as needed for Nausea and Vomiting (N/V). ketorolac 2020-0 Yes [id number] 10mg Take 1 Un jackie 10 mg 3-22 tablet by ity of tablet 00:00: mouth [place] 00 every 6 Medical (six) Branch hours as needed for Pain (scale 7-10) (ONLY WHEN IN breakthrou gh PAIN, avoid use if pain tolerable) . ondansetron 2020-0 Yes [id number] 4mg Take 1 [facility] 4 mg tablet 3-22 tablet by ity of 00:00: mouth [place] 00 every 8 Medical (eight) Branch hours as needed for Nausea and Vomiting (N/V). ketorolac 2020-0 Yes [id number] 10mg Take 1 Un jackie 10 mg 3-22 tablet by ity of tablet 00:00: mouth [place] 00 every 6 Medical (six) Branch hours as needed for Pain (scale 7-10) (ONLY WHEN IN breakthrou gh PAIN, avoid use if pain tolerable) . ondansetron 2020-0 Yes [id number] 4mg Take 1 [facility] 4 mg tablet 3-22 tablet by ity of 00:00: mouth [place] 00 every 8 Medical (eight) Branch hours as needed for Nausea and Vomiting (N/V). ketorolac 2020-0 Yes [id number] 10mg Take 1 Un jackie 10 mg 3-22 tablet by ity of tablet 00:00: mouth [place] 00 every 6 Medical (six) Branch hours as needed for Pain (scale 7-10) (ONLY WHEN IN breakthrou gh PAIN, avoid use if pain tolerable) . ondansetron 2020-0 Yes [id number] 4mg Take 1 [facility] 4 mg tablet 3-22 tablet by ity of 00:00: mouth [place] 00 every 8 Medical (eight) Branch hours as needed for Nausea and Vomiting (N/V). ketorolac 2020-0 Yes [id number] 10mg Take 1 Un jackie 10 mg 3-22 tablet by ity of tablet 00:00: mouth [place] 00 every 6 Medical (six) Branch hours as needed for Pain (scale 7-10) (ONLY WHEN IN breakthrou gh PAIN, avoid use if pain tolerable) . ondansetron 2020-0 Yes [id number] 4mg Take 1 [facility] 4 mg tablet 3-22 tablet by ity of 00:00: mouth [place] 00 every 8 Medical (eight) Branch hours as needed for Nausea and Vomiting (N/V). ketorolac 2020-0 Yes [id number] 10mg Take 1 Un jackie 10 mg 3-22 tablet by ity of tablet 00:00: mouth [place] 00 every 6 Medical (six) Branch hours as needed for Pain (scale 7-10) (ONLY WHEN IN breakthrou gh PAIN, avoid use if pain tolerable) . ondansetron 2020-0 Yes [id number] 4mg Take 1 [facility] 4 mg tablet 3-22 tablet by ity of 00:00: mouth [place] 00 every 8 Medical (eight) Branch hours as needed for Nausea and Vomiting (N/V). ketorolac 2020-0 Yes [id number] 10mg Take 1 Un jackie 10 mg 3-22 tablet by ity of tablet 00:00: mouth [place] 00 every 6 Medical (six) Branch hours as needed for Pain (scale 7-10) (ONLY WHEN IN breakthrou gh PAIN, avoid use if pain tolerable) . ondansetron 2020-0 Yes [id number] 4mg Take 1 [facility] 4 mg tablet 3-22 tablet by ity of 00:00: mouth [place] 00 every 8 Medical (eight) Branch hours as needed for Nausea and Vomiting (N/V). ketorolac 2020-0 Yes [id number] 10mg Take 1 Un jackie 10 mg 3-22 tablet by ity of tablet 00:00: mouth [place] 00 every 6 Medical (six) Branch hours as needed for Pain (scale 7-10) (ONLY WHEN IN breakthrou gh PAIN, avoid use if pain tolerable) . ondansetron 2020-0 Yes [id number] 4mg Take 1 [facility] 4 mg tablet 3-22 tablet by ity of 00:00: mouth [place] 00 every 8 Medical (eight) Branch hours as needed for Nausea and Vomiting (N/V). ketorolac 2020-0 Yes [id number] 10mg Take 1 Un jackie 10 mg 3-22 tablet by ity of tablet 00:00: mouth [place] 00 every 6 Medical (six) Branch hours as needed for Pain (scale 7-10) (ONLY WHEN IN breakthrou gh PAIN, avoid use if pain tolerable) . ondansetron 2020-0 Yes [id number] 4mg Take 1 [facility] 4 mg tablet 3-22 tablet by ity of 00:00: mouth [place] 00 every 8 Medical (eight) Branch hours as needed for Nausea and Vomiting (N/V). ketorolac 2020-0 Yes [id number] 10mg Take 1 Un jackie 10 mg 3-22 tablet by ity of tablet 00:00: mouth [place] 00 every 6 Medical (six) Branch hours as needed for Pain (scale 7-10) (ONLY WHEN IN breakthrou gh PAIN, avoid use if pain tolerable) . ondansetron 2020-0 Yes [id number] 4mg Take 1 [facility] 4 mg tablet 3-22 tablet by ity of 00:00: mouth [place] 00 every 8 Medical (eight) Branch hours as needed for Nausea and Vomiting (N/V). ketorolac 2020-0 Yes [id number] 10mg Take 1 Un jackie 10 mg 3-22 tablet by ity of tablet 00:00: mouth [place] 00 every 6 Medical (six) Branch hours as needed for Pain (scale 7-10) (ONLY WHEN IN breakthrou gh PAIN, avoid use if pain tolerable) . ondansetron 2020-0 Yes [id number] 4mg Take 1 [facility] 4 mg tablet 3-22 tablet by ity of 00:00: mouth [place] 00 every 8 Medical (eight) Branch hours as needed for Nausea and Vomiting (N/V). ketorolac 2020-0 Yes [id number] 10mg Take 1 Un jackie 10 mg 3-22 tablet by ity of tablet 00:00: mouth [place] 00 every 6 Medical (six) Branch hours as needed for Pain (scale 7-10) (ONLY WHEN IN breakthrou gh PAIN, avoid use if pain tolerable) . ondansetron 2020-0 Yes [id number] 4mg Take 1 [facility] 4 mg tablet 3-22 tablet by ity of 00:00: mouth [place] 00 every 8 Medical (eight) Branch hours as needed for Nausea and Vomiting (N/V). ketorolac 2020-0 Yes [id number] 10mg Take 1 Un jackie 10 mg 3-22 tablet by ity of tablet 00:00: mouth [place] 00 every 6 Medical (six) Branch hours as needed for Pain (scale 7-10) (ONLY WHEN IN breakthrou gh PAIN, avoid use if pain tolerable) . ondansetron 2020-0 Yes [id number] 4mg Take 1 [facility] 4 mg tablet 3-22 tablet by ity of 00:00: mouth [place] 00 every 8 Medical (eight) Branch hours as needed for Nausea and Vomiting (N/V). ketorolac 2020-0 Yes [id number] 10mg Take 1 Un jackie 10 mg 3-22 tablet by ity of tablet 00:00: mouth [place] 00 every 6 Medical (six) Branch hours as needed for Pain (scale 7-10) (ONLY WHEN IN breakthrou gh PAIN, avoid use if pain tolerable) . ondansetron 2020-0 Yes [id number] 4mg Take 1 [facility] 4 mg tablet 3-22 tablet by ity of 00:00: mouth [place] 00 every 8 Medical (eight) Branch hours as needed for Nausea and Vomiting (N/V). ketorolac 2020-0 Yes [id number] 10mg Take 1 Un jackie 10 mg 3-22 tablet by ity of tablet 00:00: mouth [place] 00 every 6 Medical (six) Branch hours as needed for Pain (scale 7-10) (ONLY WHEN IN breakthrou gh PAIN, avoid use if pain tolerable) . ondansetron 2020-0 Yes [id number] 4mg Take 1 [facility] 4 mg tablet 3-22 tablet by ity of 00:00: mouth [place] 00 every 8 Medical (eight) Branch hours as needed for Nausea and Vomiting (N/V). ketorolac 2020-0 Yes [id number] 10mg Take 1 Un jackie 10 mg 3-22 tablet by ity of tablet 00:00: mouth [place] 00 every 6 Medical (six) Branch hours as needed for Pain (scale 7-10) (ONLY WHEN IN breakthrou gh PAIN, avoid use if pain tolerable) . ondansetron 2020-0 Yes [id number] 4mg Take 1 [facility] 4 mg tablet 3-22 tablet by ity of 00:00: mouth [place] 00 every 8 Medical (eight) Branch hours as needed for Nausea and Vomiting (N/V). ketorolac 2020-0 Yes [id number] 10mg Take 1 Un jackie 10 mg 3-22 tablet by ity of tablet 00:00: mouth [place] 00 every 6 Medical (six) Branch hours as needed for Pain (scale 7-10) (ONLY WHEN IN breakthrou gh PAIN, avoid use if pain tolerable) . ondansetron 2020-0 Yes [id number] 4mg Take 1 [facility] 4 mg tablet 3-22 tablet by ity of 00:00: mouth [place] 00 every 8 Medical (eight) Branch hours as needed for Nausea and Vomiting (N/V). ketorolac 2020-0 Yes [id number] 10mg Take 1 Un jackie 10 mg 3-22 tablet by ity of tablet 00:00: mouth [place] 00 every 6 Medical (six) Branch hours as needed for Pain (scale 7-10) (ONLY WHEN IN breakthrou gh PAIN, avoid use if pain tolerable) . ondansetron 2020-0 Yes [id number] 4mg Take 1 [facility] 4 mg tablet 3-22 tablet by ity of 00:00: mouth [place] 00 every 8 Medical (eight) Branch hours as needed for Nausea and Vomiting (N/V). ketorolac 2020-0 Yes [id number] 10mg Take 1 Un [facility]ie 10 mg 3-22 tablet by ity of tablet 00:00: mouth [place] 00 every 6 Medical (six) Branch hours as needed for Pain (scale 7-10) (ONLY WHEN IN breakthrou gh PAIN, avoid use if pain tolerable) . ondansetron 2020-0 Yes [id number] 4mg Take 1 [facility] 4 mg tablet 3-22 tablet by ity of 00:00: mouth [place] 00 every 8 Medical (eight) Branch hours as needed for Nausea and Vomiting (N/V). ketorolac 2020-0 Yes [id number] 10mg Take 1 Un jackie 10 mg 3-22 tablet by ity of tablet 00:00: mouth [place] 00 every 6 Medical (six) Branch hours as needed for Pain (scale 7-10) (ONLY WHEN IN breakthrou gh PAIN, avoid use if pain tolerable) . ondansetron 2020-0 Yes [id number] 4mg Take 1 [facility] 4 mg tablet 3-22 tablet by ity of 00:00: mouth [place] 00 every 8 Medical (eight) Branch hours as needed for Nausea and Vomiting (N/V). ketorolac 2020-0 Yes [id number] 10mg Take 1 Un jackie 10 mg 3-22 tablet by ity of tablet 00:00: mouth [place] 00 every 6 Medical (six) Branch hours as needed for Pain (scale 7-10) (ONLY WHEN IN breakthrou gh PAIN, avoid use if pain tolerable) . ondansetron 2020-0 Yes [id number] 4mg Take 1 [facility] 4 mg tablet 3-22 tablet by ity of 00:00: mouth [place] 00 every 8 Medical (eight) Branch hours as needed for Nausea and Vomiting (N/V). ketorolac 2020-0 Yes [id number] 10mg Take 1 Un jackie 10 mg 3-22 tablet by ity of tablet 00:00: mouth [place] 00 every 6 Medical (six) Branch hours as needed for Pain (scale 7-10) (ONLY WHEN IN breakthrou gh PAIN, avoid use if pain tolerable) . ondansetron 2020-0 Yes [id number] 4mg Take 1 [facility] 4 mg tablet 3-22 tablet by ity of 00:00: mouth [place] 00 every 8 Medical (eight) Branch hours as needed for Nausea and Vomiting (N/V). ketorolac 2020-0 Yes [id number] 10mg Take 1 Un jackie 10 mg 3-22 tablet by ity of tablet 00:00: mouth [place] 00 every 6 Medical (six) Branch hours as needed for Pain (scale 7-10) (ONLY WHEN IN breakthrou gh PAIN, avoid use if pain tolerable) . ondansetron 2020-0 Yes [id number] 4mg Take 1 [facility] 4 mg tablet 3-22 tablet by ity of 00:00: mouth [place] 00 every 8 Medical (eight) Branch hours as needed for Nausea and Vomiting (N/V). ketorolac 2020-0 Yes [id number] 10mg Take 1 Un jackie 10 mg 3-22 tablet by ity of tablet 00:00: mouth [place] 00 every 6 Medical (six) Branch hours as needed for Pain (scale 7-10) (ONLY WHEN IN breakthrou gh PAIN, avoid use if pain tolerable) . ondansetron 2020-0 Yes [id number] 4mg Take 1 [facility] 4 mg tablet 3-22 tablet by ity of 00:00: mouth [place] 00 every 8 Medical (eight) Branch hours as needed for Nausea and Vomiting (N/V). ketorolac 2020-0 Yes [id number] 10mg Take 1 Un jackie 10 mg 3-22 tablet by ity of tablet 00:00: mouth [place] 00 every 6 Medical (six) Branch hours as needed for Pain (scale 7-10) (ONLY WHEN IN breakthrou gh PAIN, avoid use if pain tolerable) . ondansetron 2020-0 Yes [id number] 4mg Take 1 [facility] 4 mg tablet 3-22 tablet by ity of 00:00: mouth [place] 00 every 8 Medical (eight) Branch hours as needed for Nausea and Vomiting (N/V). ketorolac 2020-0 Yes [id number] 10mg Take 1 Un jackie 10 mg 3-22 tablet by ity of tablet 00:00: mouth [place] 00 every 6 Medical (six) Branch hours as needed for Pain (scale 7-10) (ONLY WHEN IN breakthrou gh PAIN, avoid use if pain tolerable) . ondansetron 2020-0 Yes [id number] 4mg Take 1 [facility] 4 mg tablet 3-22 tablet by ity of 00:00: mouth [place] 00 every 8 Medical (eight) Branch hours as needed for Nausea and Vomiting (N/V). ketorolac 2020-0 Yes [id number] 10mg Take 1 Un jackie 10 mg 3-22 tablet by ity of tablet 00:00: mouth [place] 00 every 6 Medical (six) Branch hours as needed for Pain (scale 7-10) (ONLY WHEN IN [facility] PAIN, avoid use if pain tolerable) . ondansetron 2020-0 Yes [id number] 4mg Take 1 [facility] 4 mg tablet 3-22 tablet by ity of 00:00: mouth [place] 00 every 8 Medical (eight) Branch hours as needed for Nausea and Vomiting (N/V). ketorolac 2020-0 Yes [id number] 10mg Take 1 Un jackie 10 mg 3-22 tablet by ity of tablet 00:00: mouth [place] 00 every 6 Medical (six) Branch hours as needed for Pain (scale 7-10) (ONLY WHEN IN [facility] PAIN, avoid use if pain tolerable) . ondansetron 2020-0 Yes [id number] 4mg Take 1 [facility] 4 mg tablet 3-22 tablet by ity of 00:00: mouth [place] 00 every 8 Medical (eight) Branch hours as needed for Nausea and Vomiting (N/V). Kenalog Kenalog 2020-0 No 40mg Common (Triamcinol (Triamcinol 2-11 S pirit one) one) 00:00: - CHI 00 [facility] Kenalog Kenalog 2020-0 No 40mg Common (Triamcinol (Triamcinol 2-11 S pirit one) one) 00:00: - CHI 00 [facility] Kenalog Kenalog 2020-0 No 40mg Common (Triamcinol (Triamcinol 2-11 S pirit one) one) 00:00: - CHI 00 [facility] Kenalog Kenalog 2020-0 No 40mg Common (Triamcinol (Triamcinol 2-11 S pirit one) one) 00:00: - CHI 00 [facility] Kenalog Kenalog 2020-0 No 40mg Common (Triamcinol (Triamcinol 2-11 S pirit one) one) 00:00: - CHI 00 [facility] Kenalog Kenalog 2020-0 No 40mg Common (Triamcinol (Triamcinol 2-11 S pirit one) one) 00:00: - CHI 00 [facility] Kenalog Kenalog 2020-0 No 40mg Common (Triamcinol (Triamcinol 2-11 S pirit one) one) 00:00: - CHI 00 [facility] Kenalog Kenalog 2020-0 No 40mg Common (Triamcinol (Triamcinol 2-11 S pirit one) one) 00:00: - CHI 00 [facility] Kenalog Kenalog 2020-0 No 40mg Common (Triamcinol (Triamcinol 2-11 S pirit one) one) 00:00: - CHI 00 [facility] Kenalog Kenalog 2020-0 No 40mg Common (Triamcinol (Triamcinol 2-11 S pirit one) one) 00:00: - CHI 00 [facility] Kenalog Kenalog 2020-0 No 40mg Common (Triamcinol (Triamcinol 2-11 S pirit one) one) 00:00: - CHI 00 [facility] Kenalog Kenalog 2020-0 No 40mg Common (Triamcinol (Triamcinol 2-11 S pirit one) one) 00:00: - CHI 00 [facility] Kenalog Kenalog 2020-0 No 40mg Common (Triamcinol (Triamcinol 2-11 S pirit one) one) 00:00: - CHI 00 [facility] Kenalog Kenalog 2020-0 No 40mg Common (Triamcinol (Triamcinol 2-11 S pirit one) one) 00:00: - CHI 00 [facility] Kenalog Kenalog 2020-0 No 40mg Common (Triamcinol (Triamcinol 2-11 S pirit one) one) 00:00: - CHI 00 [facility] Kenalog Kenalog 2020-0 No 40mg Common (Triamcinol (Triamcinol 2-11 S pirit one) one) 00:00: - CHI 00 [facility] Kenalog Kenalog 2020-0 No 40mg Common (Triamcinol (Triamcinol 2-11 S pirit one) one) 00:00: - CHI 00 [facility] Kenalog Kenalog 2020-0 No 40mg Common (Triamcinol (Triamcinol 2-11 S pirit one) one) 00:00: - CHI 00 [facility] Kenalog Kenalog 2020-0 No 40mg Common (Triamcinol (Triamcinol 2-11 S pirit one) one) 00:00: - CHI 00 [facility] Kenalog Kenalog 2020-0 No 40mg Common (Triamcinol (Triamcinol 2-11 S pirit one) one) 00:00: - CHI 00 [facility] Kenalog Kenalog 2020-0 No 40mg Common (Triamcinol (Triamcinol 2-11 S pirit one) one) 00:00: - CHI 00 [facility] Kenalog Kenalog 2020-0 No 40mg Common (Triamcinol (Triamcinol 2-11 S pirit one) one) 00:00: - CHI 00 [facility] Kenalog Kenalog 2020-0 No 40mg Common (Triamcinol (Triamcinol 2-11 S pirit one) one) 00:00: - CHI 00 [facility] Kenalog Kenalog 2020-0 No 40mg Common (Triamcinol (Triamcinol 2-11 S pirit one) one) 00:00: - CHI 00 [facility] Kenalog Kenalog 2020-0 No 40mg Common (Triamcinol (Triamcinol 2-11 S pirit one) one) 00:00: - CHI 00 [facility] Kenalog Kenalog 2020-0 No 40mg Common (Triamcinol (Triamcinol 2-11 S pirit one) one) 00:00: - CHI 00 [facility] Kenalog Kenalog 2020-0 No 40mg Common (Triamcinol (Triamcinol 2-11 S pirit one) one) 00:00: - CHI 00 [facility] Kenalog Kenalog 2020-0 No 40mg Common (Triamcinol (Triamcinol 2-11 S pirit one) one) 00:00: - CHI 00 [facility] Kenalog Kenalog 2020-0 No 40mg Common (Triamcinol (Triamcinol 2-11 S pirit one) one) 00:00: - CHI 00 [facility] Kenalog Kenalog 2020-0 No 40mg Common (Triamcinol (Triamcinol 2-11 S pirit one) one) 00:00: - CHI 00 [facility] Kenalog Kenalog 2020-0 No 40mg Common (Triamcinol (Triamcinol 2-11 S pirit one) one) 00:00: - CHI 00 [facility] Kenalog Kenalog 2020-0 No 40mg Common (Triamcinol (Triamcinol 1-14 S pirit one) one) 00:00: - CHI 00 [facility] Kenalog Kenalog 2020-0 No 40mg Common (Triamcinol (Triamcinol 1-14 S pirit one) one) 00:00: - CHI 00 [facility] Kenalog Kenalog 2020-0 No 40mg Common (Triamcinol (Triamcinol 1-14 S pirit one) one) 00:00: - CHI 00 [facility] Kenalog Kenalog 2020-0 No 40mg Common (Triamcinol (Triamcinol 1-14 S pirit one) one) 00:00: - CHI 00 [facility] Kenalog Kenalog 2020-0 No 40mg Common (Triamcinol (Triamcinol 1-14 S pirit one) one) 00:00: - CHI 00 [facility] Kenalog Kenalog 2020-0 No 40mg Common (Triamcinol (Triamcinol 1-14 S pirit one) one) 00:00: - CHI 00 [facility] Kenalog Kenalog 2020-0 No 40mg Common (Triamcinol (Triamcinol 1-14 S pirit one) one) 00:00: - CHI 00 [facility] Kenalog Kenalog 2020-0 No 40mg Common (Triamcinol (Triamcinol 1-14 S pirit one) one) 00:00: - CHI 00 [facility] Kenalog Kenalog 2020-0 No 40mg Common (Triamcinol (Triamcinol 1-14 S pirit one) one) 00:00: - CHI 00 [facility] Kenalog Kenalog 2020-0 No 40mg Common (Triamcinol (Triamcinol 1-14 S pirit one) one) 00:00: - CHI 00 [facility] Kenalog Kenalog 2020-0 No 40mg Common (Triamcinol (Triamcinol 1-14 S pirit one) one) 00:00: - CHI 00 [facility] Kenalog Kenalog 2020-0 No 40mg Common (Triamcinol (Triamcinol 1-14 S pirit one) one) 00:00: - CHI 00 [facility] Kenalog Kenalog 2020-0 No 40mg Common (Triamcinol (Triamcinol 1-14 S pirit one) one) 00:00: - CHI 00 [facility] Kenalog Kenalog 2020-0 No 40mg Common (Triamcinol (Triamcinol 1-14 S pirit one) one) 00:00: - CHI 00 [facility] Kenalog Kenalog 2020-0 No 40mg Common (Triamcinol (Triamcinol 1-14 S pirit one) one) 00:00: - CHI 00 [facility] Kenalog Kenalog 2020-0 No 40mg Common (Triamcinol (Triamcinol 1-14 S pirit one) one) 00:00: - CHI 00 [facility] Kenalog Kenalog 2020-0 No 40mg Common (Triamcinol (Triamcinol 1-14 S pirit one) one) 00:00: - CHI 00 [facility] Kenalog Kenalog 2020-0 No 40mg Common (Triamcinol (Triamcinol 1-14 S pirit one) one) 00:00: - CHI 00 [facility] Kenalog Kenalog 2020-0 No 40mg Common (Triamcinol (Triamcinol 1-14 S pirit one) one) 00:00: - CHI 00 [facility] Kenalog Kenalog 2020-0 No 40mg Common (Triamcinol (Triamcinol 1-14 S pirit one) one) 00:00: - CHI 00 [facility] Kenalog Kenalog 2020-0 No 40mg Common (Triamcinol (Triamcinol 1-14 S pirit one) one) 00:00: - CHI 00 [facility] Kenalog Kenalog 2020-0 No 40mg Common (Triamcinol (Triamcinol 1-14 S pirit one) one) 00:00: - CHI 00 [facility] Kenalog Kenalog 2020-0 No 40mg Common (Triamcinol (Triamcinol 1-14 S pirit one) one) 00:00: - CHI 00 [facility] Kenalog Kenalog 2020-0 No 40mg Common (Triamcinol (Triamcinol 1-14 S pirit one) one) 00:00: - CHI 00 [facility] Kenalog Kenalog 2020-0 No 40mg Common (Triamcinol (Triamcinol 1-14 S pirit one) one) 00:00: - CHI 00 [facility] Kenalog Kenalog 2020-0 No 40mg Common (Triamcinol (Triamcinol 1-14 S pirit one) one) 00:00: - CHI 00 [facility] Kenalog Kenalog 2020-0 No 40mg Common (Triamcinol (Triamcinol 1-14 S pirit one) one) 00:00: - CHI 00 [facility] Kenalog Kenalog 2020-0 No 40mg Common (Triamcinol (Triamcinol 1-14 S pirit one) one) 00:00: - CHI 00 [facility] Kenalog Kenalog 2020-0 No 40mg Common (Triamcinol (Triamcinol 1-14 S pirit one) one) 00:00: - CHI 00 [facility] Kenalog Kenalog 2020-0 No 40mg Common (Triamcinol (Triamcinol 1-14 S pirit one) one) 00:00: - CHI 00 [facility] Kenalog Kenalog 2020-0 No 40mg Common (Triamcinol (Triamcinol 1-14 S pirit one) one) 00:00: - CHI 00 [facility] furosemide 2020-0 Yes 40mg Take 40 mg U nivers 40 mg 1-03 by mouth ity of tablet 00:00: daily. [place] [facility] furosemide 2020-0 Yes 40mg Take 40 mg U nivers 40 mg 1-03 by mouth ity of tablet 00:00: daily. [place] [facility] furosemide 2020-0 Yes 40mg Take 40 mg U nivers 40 mg 1-03 by mouth ity of tablet 00:00: daily. [place] [facility] furosemide 2020-0 Yes 40mg Take 40 mg U nivers 40 mg 1-03 by mouth ity of tablet 00:00: daily. [place] [facility] furosemide 2020-0 Yes 40mg Take 40 mg U nivers 40 mg 1-03 by mouth ity of tablet 00:00: daily. [place] [facility] furosemide 2020-0 Yes 40mg Take 40 mg U nivers 40 mg 1-03 by mouth ity of tablet 00:00: daily. [place] [facility] furosemide 2020-0 Yes 40mg Take 40 mg U nivers 40 mg 1-03 by mouth ity of tablet 00:00: daily. [place] [facility] furosemide 2020-0 Yes 40mg Take 40 mg U nivers 40 mg 1-03 by mouth ity of tablet 00:00: daily. [place] [facility] furosemide 2020-0 Yes 40mg Take 40 mg U nivers 40 mg 1-03 by mouth ity of tablet 00:00: daily. [place] [facility] furosemide 2020-0 Yes 40mg Take 40 mg U nivers 40 mg 1-03 by mouth ity of tablet 00:00: daily. [place] [facility] furosemide 2020-0 Yes 40mg Take 40 mg U nivers 40 mg 1-03 by mouth ity of tablet 00:00: daily. [place] [facility] furosemide 2020-0 Yes 40mg Take 40 mg U nivers 40 mg 1-03 by mouth ity of tablet 00:00: daily. [place] [facility] furosemide 2020-0 Yes 40mg Take 40 mg U nivers 40 mg 1-03 by mouth ity of tablet 00:00: daily. [place] [facility] furosemide 2020-0 Yes 40mg Take 40 mg U nivers 40 mg 1-03 by mouth ity of tablet 00:00: daily. [address] furosemide 2020-0 Yes 40mg Take 40 mg U nivers 40 mg 1-03 by mouth ity of tablet 00:00: daily. [place] [facility] furosemide 2020-0 Yes 40mg Take 40 mg U nivers 40 mg 1-03 by mouth ity of tablet 00:00: daily. [place] [facility] Branch furosemide 2020-0 Yes 40mg Take 40 mg U nivers 40 mg 1-03 by mouth ity of tablet 00:00: daily. [place] [facility] Branch furosemide 2020-0 Yes 40mg Take 40 mg U nivers 40 mg 1-03 by mouth ity of tablet 00:00: daily. [place] [facility] Branch furosemide 2020-0 Yes 40mg Take 40 mg U nivers 40 mg 1-03 by mouth ity of tablet 00:00: daily. [place] [facility] furosemide 2020-0 Yes 40mg Take 40 mg U nivers 40 mg 1-03 by mouth ity of tablet 00:00: daily. [place] [facility] Branch furosemide 2020-0 Yes 40mg Take 40 mg U nivers 40 mg 1-03 by mouth ity of tablet 00:00: daily. [place] [facility] furosemide 2020-0 Yes 40mg Take 40 mg U nivers 40 mg 1-03 by mouth ity of tablet 00:00: daily. [place] [facility] furosemide 2020-0 Yes 40mg Take 40 mg U nivers 40 mg 1-03 by mouth ity of tablet 00:00: daily. [place] [facility] furosemide 2020-0 Yes 40mg Take 40 mg U nivers 40 mg 1-03 by mouth ity of tablet 00:00: daily. [place] [facility] Branch furosemide 2020-0 Yes 40mg Take 40 mg U nivers 40 mg 1-03 by mouth ity of tablet 00:00: daily. [place] [facility] furosemide 2020-0 Yes 40mg Take 40 mg U nivers 40 mg 1-03 by mouth ity of tablet 00:00: daily. [address] furosemide 2020-0 Yes 40mg Take 40 mg U nivers 40 mg 1-03 by mouth ity of tablet 00:00: daily. [address] furosemide 2020-0 Yes 40mg Take 40 mg U nivers 40 mg 1-03 by mouth ity of tablet 00:00: daily. [address] furosemide 2020-0 Yes 40mg Take 40 mg U nivers 40 mg 1-03 by mouth ity of tablet 00:00: daily. [address] furosemide 2020-0 Yes 40mg Take 40 mg U nivers 40 mg 1-03 by mouth ity of tablet 00:00: daily. [place] [address] Medical Branch furosemide 2020-0 Yes 40mg Take 1 Unive rs 40 mg 1-03 tablet by ity of tablet 00:00: mouth in [place] 00 the Medical morning. Branch furosemide 2020-0 Yes 40mg Take 1 Unive rs 40 mg 1-03 tablet by ity of tablet 00:00: mouth in [place] 00 the Medical morning. Branch furosemide 2020-0 Yes 40mg Take 1 Unive rs 40 mg 1-03 tablet by ity of tablet 00:00: mouth in [place] 00 the Medical morning. Branch furosemide 2020-0 Yes 40mg Take 1 Unive rs 40 mg 1-03 tablet by ity of tablet 00:00: mouth in [place] 00 the Medical morning. Branch [facility] 2018- No 40mg Common (Triamcinol (Triamcinol 1-25 S pirit one) one) 00:00: - CHI 00 [facility] 2018- No 40mg Common (Triamcinol (Triamcinol 1-25 S pirit one) one) 00:00: - CHI 00 [facility] 2019- No 40mg Common (Triamcinol (Triamcinol 1-25 S pirit one) one) 00:00: - CHI 00 [facility] 2019- No 40mg Common (Triamcinol (Triamcinol 1-25 S pirit one) one) 00:00: - CHI 00 [facility] 2019- No 40mg Common (Triamcinol (Triamcinol 1-25 S pirit one) one) 00:00: - CHI 00 [facility] 2019- No 40mg Common (Triamcinol (Triamcinol 1-25 S pirit one) one) 00:00: - CHI 00 [facility] 2019- No 40mg Common (Triamcinol (Triamcinol 1-25 S pirit one) one) 00:00: - CHI 00 [facility] 2019- No 40mg Common (Triamcinol (Triamcinol 1-25 S pirit one) one) 00:00: - CHI 00 [facility] [place] [facility] 2019- No 40mg Common (Triamcinol (Triamcinol 1-25 S pirit one) one) 00:00: - CHI 00 [facility] [place] 2019- No 40mg Common (Triamcinol (Triamcinol 1-25 S pirit one) one) 00:00: - CHI 00 [facility] [place] 2019- No 40mg Common (Triamcinol (Triamcinol 1-25 S pirit one) one) 00:00: - CHI 00 [facility] [place] 2018- No 40mg Common (Triamcinol (Triamcinol 1-25 S pirit one) one) 00:00: - CHI 00 [facility] [place] 2019- No 40mg Common (Triamcinol (Triamcinol 1-25 S pirit one) one) 00:00: - CHI 00 [facility] [place] 2019- No 40mg Common (Triamcinol (Triamcinol 1-25 S pirit one) one) 00:00: - CHI 00 [facility] [place] 2019- No 40mg Common (Triamcinol (Triamcinol 1-25 S pirit one) one) 00:00: - CHI 00 [facility] [place] 2019- No 40mg Common (Triamcinol (Triamcinol 1-25 S pirit one) one) 00:00: - CHI 00 [facility] [place] 2019- No 40mg Common (Triamcinol (Triamcinol 1-25 S pirit one) one) 00:00: - CHI 00 [facility] [place] 2019- No 40mg Common (Triamcinol (Triamcinol 1-25 S pirit one) one) 00:00: - CHI 00 [facility] [place] 2019- No 40mg Common (Triamcinol (Triamcinol 1-25 S pirit one) one) 00:00: - CHI 00 [facility] [place] 2019- No 40mg Common (Triamcinol (Triamcinol 1-25 S pirit one) one) 00:00: - CHI 00 [facility] [place] Kenalog 2019- No 40mg Common (Triamcinol (Triamcinol 1-25 S pirit one) one) 00:00: - CHI 00 [facility] [place] Kenalog 2018- No 40mg Common (Triamcinol (Triamcinol 1-25 S pirit one) one) 00:00: - CHI 00 [facility] [place] Kenalog 2018- No 40mg Common (Triamcinol (Triamcinol 1-25 S pirit one) one) 00:00: - CHI 00 [facility] [place] 2018- No 40mg Common (Triamcinol (Triamcinol 1-25 S pirit one) one) 00:00: - CHI 00 [facility] [place] 2018- No 40mg Common (Triamcinol (Triamcinol 1-25 S pirit one) one) 00:00: - CHI 00 [facility] [place] 2018- No 40mg Common (Triamcinol (Triamcinol 1-25 S pirit one) one) 00:00: - CHI 00 [facility] [place] 2018- No 40mg Common (Triamcinol (Triamcinol 1-25 S pirit one) one) 00:00: - CHI 00 [facility] [place] 2018- No 40mg Common (Triamcinol (Triamcinol 1-25 S pirit one) one) 00:00: - CHI 00 [facility] [place] Kenalog 2019- No 40mg Common (Triamcinol (Triamcinol 1-25 S pirit one) one) 00:00: - CHI 00 [facility] [place] Kenalog 2019- No 40mg Common (Triamcinol (Triamcinol 1-25 S pirit one) one) 00:00: - CHI 00 [facility] [place] Kenalog 2018- No 40mg Common (Triamcinol (Triamcinol 1-25 S pirit one) one) 00:00: - CHI 00 [facility] Cipro 500 2018- No 1mg mg tablet 1-21 00:00: 00 Flagyl 500 2018-06 No 1mg mg tablet -21 00:00: 00 Diflucan 2018-06 No 1mg 150 mg -21 tablet 00:00: 00 Plavix 75 2018-06 No 1mg mg tablet -18 00:00: 00 atenolol 2018-06 No 1mg 100 mg -18 tablet 00:00: 00 psyllium-callaway 2018-06 Yes [id number] 1{packe Take 1 Univers crose 0-01 t} Packet by ity of (METAMUCIL, 00:00: mouth 3 [place] SUGAR,) 00 (three) Medical powder times Branch daily. docusate 2018-06 Yes [id number] 100mg Take 1 Un jackie (COLACE) 0-01 capsule by ity o f 100 mg 00:00: mouth 2 [place] capsule 00 (two) Medical times Branch daily. psyllium-callaway 2018-06 Yes [id number] 1{packe Take 1 Univers crose 0-01 t} Packet by ity of (METAMUCIL, 00:00: mouth 3 [place]AR,) 00 (three) Medical powder times Branch daily. docusate 2018-06 Yes [id number] 100mg Take 1 Un jackie (COLACE) 0-01 capsule by ity o f 100 mg 00:00: mouth 2 [place] capsule 00 (two) Medical times Branch daily. psyllium-callaway 2018-06 Yes [id number] 1{packe Take 1 Univers crose 0-01 t} Packet by ity of (METAMUCIL, 00:00: mouth 3 [place],) 00 (three) Medical powder times Branch daily. docusate 2018-06 Yes [id number] 100mg Take 1 Un jackie (COLACE) 0-01 capsule by ity o f 100 mg 00:00: mouth 2 [place] capsule 00 (two) Medical times Branch daily. psyllium-callaway 2018-06 Yes [id number] 1{packe Take 1 Univers crose 0-01 t} Packet by ity of (METAMUCIL, 00:00: mouth 3 [place],) 00 (three) Medical powder times Branch daily. docusate 2018-06 Yes [id number] 100mg Take 1 Un jackie (COLACE) 0-01 capsule by ity o f 100 mg 00:00: mouth 2 [place] capsule 00 (two) Medical times Branch daily. psyllium-callaway 2018-06 Yes [id number] 1{packe Take 1 Univers crose 0-01 t} Packet by ity of (METAMUCIL, 00:00: mouth 3 [place],) 00 (three) Medical powder times Branch daily. docusate 2018-06 Yes [id number] 100mg Take 1 Un jackie (COLACE) 0-01 capsule by ity o f 100 mg 00:00: mouth 2 [place] capsule 00 (two) Medical times Branch daily. psyllium-callaway 2018-06 Yes [id number] 1{packe Take 1 Univers crose 0-01 t} Packet by ity of (METAMUCIL, 00:00: mouth 3 [place],) 00 (three) Medical powder times Branch daily. docusate 2018-06 Yes [id number] 100mg Take 1 Un jackie (COLACE) 0-01 capsule by ity o f 100 mg 00:00: mouth 2 [place] capsule 00 (two) Medical times Branch daily. psyllium-callwaay 2018-06 Yes [id number] 1{packe Take 1 [facility] crose 0-01 t} Packet by ity of (METAMUCIL, 00:00: mouth 3 [place],) 00 (three) Medical powder times Branch daily. docusate 2018-06 Yes [id number] 100mg Take 1 Un jackie (COLACE) 0-01 capsule by ity o f 100 mg 00:00: mouth 2 [place] capsule 00 (two) Medical times Branch daily. psyllium-callaway 2018-06 Yes [id number] 1{packe Take 1 [facility] crose 0-01 t} Packet by ity of (METAMUCIL, 00:00: mouth 3 [place],) 00 (three) Medical powder times Branch daily. docusate 2018-06 Yes [id number] 100mg Take 1 Un jackie (COLACE) 0-01 capsule by ity o f 100 mg 00:00: mouth 2 [place] capsule 00 (two) Medical times Branch daily. psyllium-callaway 2018-06 Yes [id number] 1{packe Take 1 Univers crose 0-01 t} Packet by ity of (METAMUCIL, 00:00: mouth 3 [place],) 00 (three) Medical powder times Branch daily. docusate 2018-06 Yes [id number] 100mg Take 1 Un jackie (COLACE) 0-01 capsule by ity o f 100 mg 00:00: mouth 2 [place] capsule 00 (two) Medical times Branch daily. psyllium-callaway 2018-06 Yes [id number] 1{packe Take 1 [facility] crose 0-01 t} Packet by ity of (METAMUCIL, 00:00: mouth 3 [place],) 00 (three) Medical powder times Branch daily. docusate 2018-06 Yes [id number] 100mg Take 1 Un jackie (COLACE) 0-01 capsule by ity o f 100 mg 00:00: mouth 2 [place] capsule 00 (two) Medical times Branch daily. psyllium-callaway 2018-06 Yes [id number] 1{packe Take 1 [facility] crose 0-01 t} Packet by ity of (METAMUCIL, 00:00: mouth 3 [place],) 00 (three) Medical powder times Branch daily. docusate 2018-06 Yes [id number] 100mg Take 1 Un jackie (COLACE) 0-01 capsule by ity o f 100 mg 00:00: mouth 2 [place] capsule 00 (two) Medical times Branch daily. psyllium-callaway 2018-06 Yes [id number] 1{packe Take 1 Univers crose 0-01 t} Packet by ity of (METAMUCIL, 00:00: mouth 3 [place],) 00 (three) Medical powder times Branch daily. docusate 2018-06 Yes [id number] 100mg Take 1 Un jackie (COLACE) 0-01 capsule by ity o f 100 mg 00:00: mouth 2 [place] capsule 00 (two) Medical times Branch daily. psyllium-callaway 2018-06 Yes [id number] 1{packe Take 1 Univers crose 0-01 t} Packet by ity of (METAMUCIL, 00:00: mouth 3 [place],) 00 (three) Medical powder times Branch daily. docusate 2018-06 Yes [id number] 100mg Take 1 Un jackie (COLACE) 0-01 capsule by ity o f 100 mg 00:00: mouth 2 [place] capsule 00 (two) Medical times Branch daily. psyllium-callaway 2018-06 Yes [id number] 1{packe Take 1 [facility] crose 0-01 t} Packet by ity of (METAMUCIL, 00:00: mouth 3 [place],) 00 (three) Medical powder times Branch daily. docusate 2018-06 Yes [id number] 100mg Take 1 Un jackie (COLACE) 0-01 capsule by ity o f 100 mg 00:00: mouth 2 [place] capsule 00 (two) Medical times Branch daily. psyllium-callaway 2018-06 Yes [id number] 1{packe Take 1 [facility] crose 0-01 t} Packet by ity of (METAMUCIL, 00:00: mouth 3 [place],) 00 (three) Medical powder times Branch daily. docusate 2018-06 Yes [id number] 100mg Take 1 Un jackie (COLACE) 0-01 capsule by ity o f 100 mg 00:00: mouth 2 [place] capsule 00 (two) Medical times Branch daily. psyllium-callaway 2018-06 Yes [id number] 1{packe Take 1 [facility] crose 0-01 t} Packet by ity of (METAMUCIL, 00:00: mouth 3 [place],) 00 (three) Medical powder times Branch daily. docusate 2018-06 Yes [id number] 100mg Take 1 Un jackie (COLACE) 0-01 capsule by ity o f 100 mg 00:00: mouth 2 [place] capsule 00 (two) Medical times Branch daily. psyllium-callaway 2018-06 Yes [id number] 1{packe Take 1 [facility] crose 0-01 t} Packet by ity of (METAMUCIL, 00:00: mouth 3 [place],) 00 (three) Medical powder times Branch daily. docusate 2018-06 Yes [id number] 100mg Take 1 Un jackie (COLACE) 0-01 capsule by ity o f 100 mg 00:00: mouth 2 [place] capsule 00 (two) Medical times Branch daily. psyllium-callaway 2018-06 Yes [id number] 1{packe Take 1 [facility] crose 0-01 t} Packet by ity of (METAMUCIL, 00:00: mouth 3 [place] as SUGAR,) 00 (three) Medical powder times Branch daily. docusate 2018-06 Yes [id number] 100mg Take 1 Un jackie (COLACE) 0-01 capsule by ity o f 100 mg 00:00: mouth 2 [place] capsule 00 (two) Medical times Branch daily. psyllium-callaway 2018-06 Yes [id number] 1{packe Take 1 [facility] crose 0-01 t} Packet by ity of (METAMUCIL, 00:00: mouth 3 [place] as SUGAR,) 00 (three) Medical powder times Branch daily. docusate 2018-06 Yes [id number] 100mg Take 1 Un jackie (COLACE) 0-01 capsule by ity o f 100 mg 00:00: mouth 2 [place] capsule 00 (two) Medical times Branch daily. psyllium-callaway 2018-06 Yes [id number] 1{packe Take 1 [facility] crose 0-01 t} Packet by ity of (METAMUCIL, 00:00: mouth 3 [place] as SUGAR,) 00 (three) Medical powder times Branch daily. docusate 2018-06 Yes [id number] 100mg Take 1 Un jackie (COLACE) 0-01 capsule by ity o f 100 mg 00:00: mouth 2 [place] capsule 00 (two) Medical times Branch daily. psyllium-callaway 2018-06 Yes [id number] 1{packe Take 1 [facility] crose 0-01 t} Packet by ity of (METAMUCIL, 00:00: mouth 3 [place] as SUGAR,) 00 (three) Medical powder times Branch daily. docusate 2018-06 Yes [id number] 100mg Take 1 Un jackie (COLACE) 0-01 capsule by ity o f 100 mg 00:00: mouth 2 [place] capsule 00 (two) Medical times Branch daily. psyllium-callaway 2018-06 Yes [id number] 1{packe Take 1 [facility] crose 0-01 t} Packet by ity of (METAMUCIL, 00:00: mouth 3 [place] as SUGAR,) 00 (three) Medical powder times Branch daily. docusate 2018-06 Yes [id number] 100mg Take 1 Un jackie (COLACE) 0-01 capsule by ity o f 100 mg 00:00: mouth 2 [place] capsule 00 (two) Medical times Branch daily. psyllium-callaway 2018-06 Yes [id number] 1{packe Take 1 [facility] crose 0-01 t} Packet by ity of (METAMUCIL, 00:00: mouth 3 [place] as SUGAR,) 00 (three) Medical powder times Branch daily. docusate 2018-06 Yes [id number] 100mg Take 1 Un jackie (COLACE) 0-01 capsule by ity o f 100 mg 00:00: mouth 2 [place] capsule 00 (two) Medical times Branch daily. psyllium-callaway 2018-06 Yes [id number] 1{packe Take 1 [facility] crose 0-01 t} Packet by ity of (METAMUCIL, 00:00: mouth 3 [place] SUGAR,) 00 (three) Medical powder times Branch daily. docusate 2018-06 Yes [id number] 100mg Take 1 Un jackie (COLACE) 0-01 capsule by ity o f 100 mg 00:00: mouth 2 [place] capsule 00 (two) Medical times Branch daily. psyllium-callaway 2018-06 Yes [id number] 1{packe Take 1 [facility] crose 0-01 t} Packet by ity of (METAMUCIL, 00:00: mouth 3 [place] as SUGAR,) 00 (three) Medical powder times Branch daily. docusate 2018-06 Yes [id number] 100mg Take 1 Un jackie (COLACE) 0-01 capsule by ity o f 100 mg 00:00: mouth 2 [place] capsule 00 (two) Medical times Branch daily. psyllium-callaway 2018-06 Yes [id number] 1{packe Take 1 [facility] crose 0-01 t} Packet by ity of (METAMUCIL, 00:00: mouth 3 [place] as SUGAR,) 00 (three) Medical powder times Branch daily. docusate 2018-06 Yes [id number] 100mg Take 1 Un jackie (COLACE) 0-01 capsule by ity o f 100 mg 00:00: mouth 2 [place] capsule 00 (two) Medical times Branch daily. psyllium-callaway 2018-06 Yes [id number] 1{packe Take 1 [facility] crose 0-01 t} Packet by ity of (METAMUCIL, 00:00: mouth 3 [place] as SUGAR,) 00 (three) Medical powder times Branch daily. docusate 2018-06 Yes [id number] 100mg Take 1 Un jackie (COLACE) 0-01 capsule by ity o f 100 mg 00:00: mouth 2 [place] capsule 00 (two) Medical times Branch daily. psyllium-callaway 2018-06 Yes [id number] 1{packe Take 1 [facility] crose 0-01 t} Packet by ity of (METAMUCIL, 00:00: mouth 3 [place] SUGAR,) 00 (three) Medical powder times Branch daily. docusate 2018-06 Yes [id number] 100mg Take 1 Un jackie (COLACE) 0-01 capsule by ity o f 100 mg 00:00: mouth 2 [place] capsule 00 (two) Medical times Branch daily. psyllium-callaway 2018-06 Yes [id number] 1{packe Take 1 [facility] crose 0-01 t} Packet by ity of (METAMUCIL, 00:00: mouth 3 [place] SUGAR,) 00 (three) Medical powder times Branch daily. docusate 2018-06 Yes [id number] 100mg Take 1 Un jackie (COLACE) 0-01 capsule by ity o f 100 mg 00:00: mouth 2 [place] capsule 00 (two) Medical times Branch daily. psyllium-callaway 2018-06 Yes [id number] 1{packe Take 1 [facility] crose 0-01 t} Packet by ity of (METAMUCIL, 00:00: mouth 3 [place]GAR,) 00 (three) Medical powder times Branch daily. docusate 2018-06 Yes [id number] 100mg Take 1 Un jackie (COLACE) 0-01 capsule by ity o f 100 mg 00:00: mouth 2 [place] capsule 00 (two) Medical times Branch daily. psyllium-callaway 2018-06 Yes [id number] 1{packe Take 1 [facility] crose 0-01 t} Packet by ity of (METAMUCIL, 00:00: mouth 3 [place]GAR,) 00 (three) Medical powder times Branch daily. docusate 2018-06 Yes [id number] 100mg Take 1 Un jackie (COLACE) 0-01 capsule by ity o f 100 mg 00:00: mouth 2 [place] capsule 00 (two) Medical times Branch daily. psyllium-callaway 2018-06 Yes [id number] 1{packe Take 1 [facility] crose 0-01 t} Packet by ity of (METAMUCIL, 00:00: mouth 3 [place] SUGAR,) 00 (three) Medical powder times Branch daily. docusate 2018-06 Yes [id number] 100mg Take 1 Un jackie (COLACE) 0-01 capsule by ity o f 100 mg 00:00: mouth 2 [place] capsule 00 (two) Medical times Branch daily. psyllium-callaway 2018-06 Yes [id number] 1{packe Take 1 [facility] crose 0-01 t} Packet by ity of (METAMUCIL, 00:00: mouth 3 [place] SUGAR,) 00 (three) Medical powder times Branch daily. docusate 2018-06 Yes [id number] 100mg Take 1 Un jackie (COLACE) 0-01 capsule by ity o f 100 mg 00:00: mouth 2 [place] capsule 00 (two) Medical times Branch daily. psyllium-callaway 2018-06 Yes [id number] 1{packe Take 1 [facility] crose 0-01 t} Packet by ity of (METAMUCIL, 00:00: mouth 3 [place] SUGAR,) 00 (three) Medical powder times Branch daily. docusate 2018-06 Yes [id number] 100mg Take 1 Un jackie (COLACE) 0-01 capsule by ity o f 100 mg 00:00: mouth 2 [place] capsule 00 (two) Medical times Branch daily. LEVOTHYROXI 2019-0 Yes [id number] TAKE 1 [facility] NE 50 mcg 5-07 TABLET BY ity o f tablet 00:00: MOUTH [place] 00 EVERY Medical MORNING. Branch LEVOTHYROXI Yes [id number] TAKE 1 [facility] NE 50 mcg 5-07 TABLET BY ity o f tablet 00:00: MOUTH [place] 00 EVERY Medical MORNING. [place] LEVOTHYROXI 2018-0 Yes [id number] TAKE 1 [facility] NE 50 mcg 5-07 TABLET BY ity o f tablet 00:00: MOUTH [place] 00 EVERY Medical MORNING. Branch LEVOTHYROXI Yes [id number] TAKE 1 [facility] NE 50 mcg 5-07 TABLET BY ity o f tablet 00:00: MOUTH [place] 00 EVERY Medical MORNING. Branch LEVOTHYROXI 0 Yes [id number] TAKE 1 [facility] NE 50 mcg 5-07 TABLET BY ity o f tablet 00:00: MOUTH [place] 00 EVERY Medical MORNING. [place] LEVOTHYROXI 2018- Yes [id number] TAKE 1 [facility] NE 50 mcg 5-07 TABLET BY ity o f tablet 00:00: MOUTH [place] 00 EVERY Medical MORNING. Branch LEVOTHYROXI 0 Yes [id number] TAKE 1 [facility] NE 50 mcg 5-07 TABLET BY ity o f tablet 00:00: MOUTH [place] 00 EVERY Medical MORNING. Branch LEVOTHYROXI 2019-0 Yes [id number] TAKE 1 [facility] [place] 50 mcg 5-07 TABLET BY ity o f tablet 00:00: MOUTH [place] 00 EVERY Medical MORNING. Branch LEVOTHYROXI 2019-0 Yes [id number] TAKE 1 [facility] NE 50 mcg 5-07 TABLET BY ity o f tablet 00:00: MOUTH [place] 00 EVERY Medical MORNING. Branch LEVOTHYROXI 2019-0 Yes [id number] TAKE 1 [facility] NE 50 mcg 5-07 TABLET BY ity o f tablet 00:00: MOUTH [place] 00 EVERY Medical MORNING. Branch LEVOTHYROXI 2019-0 Yes [id number] TAKE 1 [facility] NE 50 mcg 5-07 TABLET BY ity o f tablet 00:00: MOUTH [place] 00 EVERY Medical MORNING. Branch LEVOTHYROXI 2019-0 Yes [id number] TAKE 1 [facility] NE 50 mcg 5-07 TABLET BY ity o f tablet 00:00: MOUTH [place] 00 EVERY Medical MORNING. Branch LEVOTHYROXI 2019-0 Yes [id number] TAKE 1 [facility] NE 50 mcg 5-07 TABLET BY ity o f tablet 00:00: MOUTH [place] 00 EVERY Medical MORNING. Branch LEVOTHYROXI 2019-0 Yes [id number] TAKE 1 [facility] NE 50 mcg 5-07 TABLET BY ity o f tablet 00:00: MOUTH [place] 00 EVERY Medical MORNING. Branch LEVOTHYROXI 2019-0 Yes [id number] TAKE 1 [facility] NE 50 mcg 5-07 TABLET BY ity o f tablet 00:00: MOUTH [place] 00 EVERY Medical MORNING. Branch LEVOTHYROXI 2019-0 Yes [id number] TAKE 1 [facility] NE 50 mcg 5-07 TABLET BY ity o f tablet 00:00: MOUTH [place] 00 EVERY Medical MORNING. Branch LEVOTHYROXI 2019-0 Yes [id number] TAKE 1 [facility] NE 50 mcg 5-07 TABLET BY ity o f tablet 00:00: MOUTH [place] 00 EVERY Medical MORNING. Branch LEVOTHYROXI 2019-0 Yes [id number] TAKE 1 [facility] NE 50 mcg 5-07 TABLET BY ity o f tablet 00:00: MOUTH [place] 00 EVERY Medical MORNING. Branch LEVOTHYROXI 2019-0 Yes [id number] TAKE 1 [facility] NE 50 mcg 5-07 TABLET BY ity o f tablet 00:00: MOUTH [place] 00 EVERY Medical MORNING. Branch LEVOTHYROXI 2019-0 Yes [id number] TAKE 1 [facility] NE 50 mcg 5-07 TABLET BY ity o f tablet 00:00: MOUTH [place] 00 EVERY Medical MORNING. Branch LEVOTHYROXI 2019-0 Yes [id number] TAKE 1 [facility] NE 50 mcg 5-07 TABLET BY ity o f tablet 00:00: MOUTH [place] 00 EVERY Medical MORNING. Branch LEVOTHYROXI 2019-0 Yes [id number] TAKE 1 [facility] NE 50 mcg 5-07 TABLET BY ity o f tablet 00:00: MOUTH [place] 00 EVERY Medical MORNING. Branch LEVOTHYROXI 2019-0 Yes [id number] TAKE 1 [facility] NE 50 mcg 5-07 TABLET BY ity o f tablet 00:00: MOUTH [place] 00 EVERY Medical MORNING. Branch LEVOTHYROXI 2019-0 Yes [id number] TAKE 1 [facility] NE 50 mcg 5-07 TABLET BY ity o f tablet 00:00: MOUTH [place] 00 EVERY Medical MORNING. Branch LEVOTHYROXI 2019-0 Yes [id number] TAKE 1 [facility] NE 50 mcg 5-07 TABLET BY ity o f tablet 00:00: MOUTH [place] 00 EVERY Medical MORNING. Branch LEVOTHYROXI 2019-0 Yes [id number] TAKE 1 [facility] NE 50 mcg 5-07 TABLET BY ity o f tablet 00:00: MOUTH [place] 00 EVERY Medical MORNING. Branch LEVOTHYROXI 2019-0 Yes [id number] TAKE 1 [facility] NE 50 mcg 5-07 TABLET BY ity o f tablet 00:00: MOUTH [place] 00 EVERY Medical MORNING. Branch LEVOTHYROXI 2019-0 Yes [id number] TAKE 1 [facility] NE 50 mcg 5-07 TABLET BY ity o f tablet 00:00: MOUTH [place] 00 EVERY Medical MORNING. Branch LEVOTHYROXI 2019-0 Yes [id number] TAKE 1 [facility] NE 50 mcg 5-07 TABLET BY ity o f tablet 00:00: MOUTH [place] 00 EVERY Medical MORNING. Branch LEVOTHYROXI 2019-0 Yes [id number] TAKE 1 [facility] NE 50 mcg 5-07 TABLET BY ity o f tablet 00:00: MOUTH [place] 00 EVERY Medical MORNING. [place] Haylee Leach 2017- No 40mg Common (Triamcinol (Triamcinol 2-05 S pirit one) one) 00:00: - CHI 00 [facility] Haylee Yooesa 2017- No 40mg Common (Triamcinol (Triamcinol 2-05 S pirit one) one) 00:00: - CHI 00 [facility] Haylee Ken[place] 2017- No 40mg Common (Triamcinol (Triamcinol 2-05 S pirit one) one) 00:00: - CHI 00 [facility] Haylee [place] 2017- No 40mg Common (Triamcinol (Triamcinol 2-05 S pirit one) one) 00:00: - CHI 00 [facility] Haylee Leach 2017- No 40mg Common (Triamcinol (Triamcinol 2-05 S pirit one) one) 00:00: - CHI 00 [facility] Haylee Leach 2017- No 40mg Common (Triamcinol (Triamcinol 2-05 S pirit one) one) 00:00: - CHI 00 [facility] Haylee Leach 2017- No 40mg Common (Triamcinol (Triamcinol 2-05 S pirit one) one) 00:00: - CHI 00 [facility] Haylee Leach 2017- No 40mg Common (Triamcinol (Triamcinol 2-05 S pirit one) one) 00:00: - CHI 00 [facility] Haylee Leach 2017- No 40mg Common (Triamcinol (Triamcinol 2-05 S pirit one) one) 00:00: - CHI 00 [facility] Haylee Leach 2017- No 40mg Common (Triamcinol (Triamcinol 2-05 S pirit one) one) 00:00: - CHI 00 [facility] Haylee Ken[place] 2017- No 40mg Common (Triamcinol (Triamcinol 2-05 S pirit one) one) 00:00: - CHI 00 [facility] Haylee [place] 2018- No 40mg Common (Triamcinol (Triamcinol 2-05 S pirit one) one) 00:00: - CHI 00 [facility] Haylee Leach 2017- No 40mg Common (Triamcinol (Triamcinol 2-05 S pirit one) one) 00:00: - CHI 00 [facility] Haylee [place] 2018- No 40mg Common (Triamcinol (Triamcinol 2-05 S pirit one) one) 00:00: - CHI 00 [facility] Haylee [place] 2017- No 40mg Common (Triamcinol (Triamcinol 2-05 S pirit one) one) 00:00: - CHI 00 [facility] Halyee Ken[place] 2017- No 40mg Common (Triamcinol (Triamcinol 2-05 S pirit one) one) 00:00: - CHI 00 [facility] Haylee [place] 2017- No 40mg Common (Triamcinol (Triamcinol 2-05 S pirit one) one) 00:00: - CHI 00 [facility] Haylee Leach 2017- No 40mg Common (Triamcinol (Triamcinol 2-05 S pirit one) one) 00:00: - CHI 00 [facility] Haylee Leach 2017- No 40mg Common (Triamcinol (Triamcinol 2-05 S pirit one) one) 00:00: - CHI 00 [facility] Haylee [place] 2017- No 40mg Common (Triamcinol (Triamcinol 2-05 S pirit one) one) 00:00: - CHI 00 [facility] Haylee [place] 2018- No 40mg Common (Triamcinol (Triamcinol 2-05 S pirit one) one) 00:00: - CHI 00 [facility] Haylee [place] 2018- No 40mg Common (Triamcinol (Triamcinol 2-05 S pirit one) one) 00:00: - CHI 00 [facility] Haylee [place] 2018- No 40mg Common (Triamcinol (Triamcinol 2-05 S pirit one) one) 00:00: - CHI 00 [facility] Haylee [place] 2018- No 40mg Common (Triamcinol (Triamcinol 2-05 S pirit one) one) 00:00: - CHI 00 [facility] Haylee [place] 2018- No 40mg Common (Triamcinol (Triamcinol 2-05 S pirit one) one) 00:00: - CHI 00 [facility] Haylee Leach 2018- No 40mg Common (Triamcinol (Triamcinol 2-05 S pirit one) one) 00:00: - CHI 00 [facility] Haylee [place] 2018- No 40mg Common (Triamcinol (Triamcinol 2-05 S pirit one) one) 00:00: - CHI 00 [facility] Haylee Leach 2017- No 40mg Common (Triamcinol (Triamcinol 2-05 S pirit one) one) 00:00: - CHI 00 [facility] Haylee Leach 2018- No 40mg Common (Triamcinol (Triamcinol 2-05 S pirit one) one) 00:00: - CHI 00 [facility] Haylee Leach 2018- No 40mg Common (Triamcinol (Triamcinol 2-05 S pirit one) one) 00:00: - CHI 00 [facility] Haylee Leach 2018- No 40mg Common (Triamcinol (Triamcinol 2-05 S pirit one) one) 00:00: - CHI 00 [facility] Haylee Leach 2018- No 40mg Common (Triamcinol (Triamcinol 0-03 S pirit one) one) 00:00: - CHI 00 [facility] Haylee Ken[place] 2018- No 40mg Common (Triamcinol (Triamcinol 0-03 S pirit one) one) 00:00: - CHI 00 [facility] Haylee [place] 2018- No 40mg Common (Triamcinol (Triamcinol 0-03 S pirit one) one) 00:00: - CHI 00 [facility] Haylee [place] 2018- No 40mg Common (Triamcinol (Triamcinol 0-03 S pirit one) one) 00:00: - CHI 00 [facility] Haylee [place] 2018- No 40mg Common (Triamcinol (Triamcinol 0-03 S pirit one) one) 00:00: - CHI 00 [facility] Haylee Ken[place] 2018- No 40mg Common (Triamcinol (Triamcinol 0-03 S pirit one) one) 00:00: - CHI 00 [facility] Haylee Leach 2017- No 40mg Common (Triamcinol (Triamcinol 0-03 S pirit one) one) 00:00: - CHI 00 [facility] Haylee Ken[place] 2018- No 40mg Common (Triamcinol (Triamcinol 0-03 S pirit one) one) 00:00: - CHI 00 [facility] Haylee Leach 2017- No 40mg Common (Triamcinol (Triamcinol 0-03 S pirit one) one) 00:00: - CHI 00 [facility] Haylee Leach 2017- No 40mg Common (Triamcinol (Triamcinol 0-03 S pirit one) one) 00:00: - CHI 00 [facility] Haylee Leach 2017- No 40mg Common (Triamcinol (Triamcinol 0-03 S pirit one) one) 00:00: - CHI 00 [facility] Haylee Ken[place] 2017- No 40mg Common (Triamcinol (Triamcinol 0-03 S pirit one) one) 00:00: - CHI 00 [facility] Haylee Leach 2017- No 40mg Common (Triamcinol (Triamcinol 0-03 S pirit one) one) 00:00: - CHI 00 [facility] Haylee [place] 2018- No 40mg Common (Triamcinol (Triamcinol 0-03 S pirit one) one) 00:00: - CHI 00 [facility] Haylee [place] 2018- No 40mg Common (Triamcinol (Triamcinol 0-03 S pirit one) one) 00:00: - CHI 00 [facility] Haylee [place] 2018- No 40mg Common (Triamcinol (Triamcinol 0-03 S pirit one) one) 00:00: - CHI 00 [facility] Haylee Ken[place] 2018- No 40mg Common (Triamcinol (Triamcinol 0-03 S pirit one) one) 00:00: - CHI 00 [facility] Kenesa Kenalog 2018- No 40mg Common (Triamcinol (Triamcinol 0-03 S pirit one) one) 00:00: - CHI 00 [facility] Haylee Kenalog 2017- No 40mg Common (Triamcinol (Triamcinol 0-03 S pirit one) one) 00:00: - CHI 00 [facility] Haylee [place] 2017- No 40mg Common (Triamcinol (Triamcinol 0-03 S pirit one) one) 00:00: - CHI 00 [facility] Haylee [place] 2017- No 40mg Common (Triamcinol (Triamcinol 0-03 S pirit one) one) 00:00: - CHI 00 [facility] Haylee [place] 2017- No 40mg Common (Triamcinol (Triamcinol 0-03 S pirit one) one) 00:00: - CHI 00 [facility] Haylee [place] 2017- No 40mg Common (Triamcinol (Triamcinol 0-03 S pirit one) one) 00:00: - CHI 00 [facility] Haylee [place] 2017- No 40mg Common (Triamcinol (Triamcinol 0-03 S pirit one) one) 00:00: - CHI 00 [facility] Haylee [place] 2017- No 40mg Common (Triamcinol (Triamcinol 0-03 S pirit one) one) 00:00: - CHI 00 [facility] Kenesa Kenesa 2018- No 40mg Common (Triamcinol (Triamcinol 0-03 S pirit one) one) 00:00: - CHI 00 [facility] [place] Kenalog 2018- No 40mg Common (Triamcinol (Triamcinol 0-03 S pirit one) one) 00:00: - CHI 00 [facility] [place] Kenalog 2018- No 40mg Common (Triamcinol (Triamcinol 0-03 S pirit one) one) 00:00: - CHI 00 [facility] [place] Kenalog 2018-1 No 40mg Common (Triamcinol (Triamcinol 0-03 S pirit one) one) 00:00: - CHI 00 [facility] Kenalog Kenalog 2018-1 No 40mg Common (Triamcinol (Triamcinol 0-03 S pirit one) one) 00:00: - CHI 00 [facility] Kenalog Kenalog 2018-1 No 40mg Common (Triamcinol (Triamcinol 0-03 S pirit one) one) 00:00: - CHI 00 [facility] Kenalog Kenalog 2018-0 No 40mg Common (Triamcinol (Triamcinol 5-15 S pirit one) one) 00:00: - CHI 00 [facility] Ken[place] Kenalog 2018-0 No 40mg Common (Triamcinol (Triamcinol 5-15 S pirit one) one) 00:00: - CHI 00 [facility] [place] Kenalog 2018-0 No 40mg Common (Triamcinol (Triamcinol 5-15 S pirit one) one) 00:00: - CHI 00 [facility] Haylee Kenalog 2018-0 No 40mg Common (Triamcinol (Triamcinol 5-15 S pirit one) one) 00:00: - CHI 00 [facility] [place] Kenalog 2018-0 No 40mg Common (Triamcinol (Triamcinol 5-15 S pirit one) one) 00:00: - CHI 00 [facility] Kenalog Kenalog 2018-0 No 40mg Common (Triamcinol (Triamcinol 5-15 S pirit one) one) 00:00: - CHI 00 [facility] Kenalog Kenalog 2018-0 No 40mg Common (Triamcinol (Triamcinol 5-15 S pirit one) one) 00:00: - CHI 00 [facility] Kenalog Kenalog 2018-0 No 40mg Common (Triamcinol (Triamcinol 5-15 S pirit one) one) 00:00: - CHI 00 [facility] Kenalog Kenalog 2018-0 No 40mg Common (Triamcinol (Triamcinol 5-15 S pirit one) one) 00:00: - CHI 00 [facility] Kenalog Kenalog 2018-0 No 40mg Common (Triamcinol (Triamcinol 5-15 S pirit one) one) 00:00: - CHI 00 [facility] Kenalog Kenalog 2018-0 No 40mg Common (Triamcinol (Triamcinol 5-15 S pirit one) one) 00:00: - CHI 00 [facility] Kenalog Kenalog 2018-0 No 40mg Common (Triamcinol (Triamcinol 5-15 S pirit one) one) 00:00: - CHI 00 [facility] Kenalog Kenalog 2018-0 No 40mg Common (Triamcinol (Triamcinol 5-15 S pirit one) one) 00:00: - CHI 00 [facility] Kenalog Kenalog 2018-0 No 40mg Common (Triamcinol (Triamcinol 5-15 S pirit one) one) 00:00: - CHI 00 [facility] Kenalog Kenalog 2018-0 No 40mg Common (Triamcinol (Triamcinol 5-15 S pirit one) one) 00:00: - CHI 00 [facility] Kenalog Kenalog 2018-0 No 40mg Common (Triamcinol (Triamcinol 5-15 S pirit one) one) 00:00: - CHI 00 [facility] Kenalog Kenalog 2018-0 No 40mg Common (Triamcinol (Triamcinol 5-15 S pirit one) one) 00:00: - CHI 00 [facility] Kenalog Kenalog 2018-0 No 40mg Common (Triamcinol (Triamcinol 5-15 S pirit one) one) 00:00: - CHI 00 [facility] Kenalog Kenalog 2018-0 No 40mg Common (Triamcinol (Triamcinol 5-15 S pirit one) one) 00:00: - CHI 00 [facility] Kenalog Kenalog 2018-0 No 40mg Common (Triamcinol (Triamcinol 5-15 S pirit one) one) 00:00: - CHI 00 [facility] Kenalog Kenalog 2018-0 No 40mg Common (Triamcinol (Triamcinol 5-15 S pirit one) one) 00:00: - CHI 00 [facility] No 40mg Common (Triamcinol (Triamcinol 5-15 S pirit one) one) 00:00: - CHI 00 [facility] Kenalog 2018-0 No 40mg Common (Triamcinol (Triamcinol 5-15 S pirit one) one) 00:00: - CHI 00 [facility]0 No 40mg Common (Triamcinol (Triamcinol 5-15 S pirit one) one) 00:00: - CHI 00 [facility]0 No 40mg Common (Triamcinol (Triamcinol 5-15 S pirit one) one) 00:00: - CHI 00 [facility]0 No 40mg Common (Triamcinol (Triamcinol 5-15 S pirit one) one) 00:00: - CHI 00 [facility] [place] 2017-0 No 40mg Common (Triamcinol (Triamcinol 5-15 S pirit one) one) 00:00: - CHI 00 [facility] [place] 2018-0 No 40mg Common (Triamcinol (Triamcinol 5-15 S pirit one) one) 00:00: - CHI 00 [facility] [place] 2018-0 No 40mg Common (Triamcinol (Triamcinol 5-15 S pirit one) one) 00:00: - CHI 00 [facility] Ken[place]og 2018-0 No 40mg Common (Triamcinol (Triamcinol 5-15 S pirit one) one) 00:00: - CHI 00 [facility] 2018-0 No 40mg Common (Triamcinol (Triamcinol 5-15 S pirit one) one) 00:00: - CHI 00 [facility] cyanocobala 2017-1 Yes 1000ug 1 mL by U nivers [...] o f capsule 00:00: mouth at [place] 00 bedtime. Medical Branch nortriptyli Yes 25mg Take 1 [facility] ers ne 25 mg 8-17 capsule by ity o f capsule 00:00: mouth at [place] 00 bedtime. Medical Branch nortriptyli Yes 25mg Take 1 [facility] ers ne 25 mg 8-17 capsule by ity o f capsule 00:00: mouth at [place] 00 bedtime. Medical Branch nortriptyli 2017-0 Yes 25mg Take 1 [facility] ers ne 25 mg 8-17 capsule by ity o f capsule 00:00: mouth at [place] 00 bedtime. Medical Branch nortriptyli 2017-0 Yes 25mg Take 1 [facility] ers ne 25 mg 8-17 capsule by ity o f capsule 00:00: mouth at [place] 00 bedtime. Medical Branch nortriptyli 2017-0 Yes 25mg Take 1 [facility] ers ne 25 mg 8-17 capsule by ity o f capsule 00:00: mouth at [place] 00 bedtime. Medical Branch nortriptyli 2017-0 Yes 25mg Take 1 [facility] ers ne 25 mg 8-17 capsule by ity o f capsule 00:00: mouth at [place] 00 bedtime. Medical Branch nortriptyli 2017-0 Yes 25mg Take 1 [facility] ers ne 25 mg 8-17 capsule by ity o f capsule 00:00: mouth at [place] 00 bedtime. Medical Branch nortriptyli 2017-0 Yes 25mg Take 1 [facility] ers ne 25 mg 8-17 capsule by ity o f capsule 00:00: mouth at [place] 00 bedtime. Medical Branch nortriptyli 2017-0 Yes 25mg Take 1 [facility] ers ne 25 mg 8-17 capsule by ity o f capsule 00:00: mouth at [place] 00 bedtime. Medical Branch nortriptyli 2017-0 Yes 25mg Take 1 [facility] ers ne 25 mg 8-17 capsule by ity o f capsule 00:00: mouth at [place] 00 bedtime. Medical Branch nortriptyli 2017-0 Yes 25mg Take 1 Univ ers ne 25 mg 8-17 capsule by ity o f capsule 00:00: mouth at [place] 00 bedtime. Medical Branch nortriptyli 2017-0 Yes 25mg Take 1 Univ ers ne 25 mg 8-17 capsule by ity o f capsule 00:00: mouth at [place] 00 bedtime. Medical Branch nortriptyli 2017-0 Yes 25mg Take 1 Univ ers ne 25 mg 8-17 capsule by ity o f capsule 00:00: mouth at [place] 00 bedtime. Medical Branch nortriptyli 2017-0 Yes 25mg Take 1 Univ ers ne 25 mg 8-17 capsule by ity o f capsule 00:00: mouth at [place] 00 bedtime. Medical Branch nortriptyli 2017-0 Yes 25mg Take 1 Univ ers ne 25 mg 8-17 capsule by ity o f capsule 00:00: mouth at [place] 00 bedtime. Medical Branch nortriptyli 2017-0 Yes 25mg Take 1 Univ ers ne 25 mg 8-17 capsule by ity o f capsule 00:00: mouth at [place] 00 bedtime. Medical Branch nortriptyli 2017-0 Yes 25mg Take 1 Univ ers ne 25 mg 8-17 capsule by ity o f capsule 00:00: mouth at [place] 00 bedtime. Medical Branch nortriptyli 2017-0 Yes 25mg Take 1 Univ ers ne 25 mg 8-17 capsule by ity o f capsule 00:00: mouth at [place] 00 bedtime. Medical Branch nortriptyli 2017-0 Yes 25mg Take 1 Univ ers ne 25 mg 8-17 capsule by ity o f capsule 00:00: mouth at [place] 00 bedtime. Medical Branch nortriptyli 2017-0 Yes 25mg Take 1 Univ ers ne 25 mg 8-17 capsule by ity o f capsule 00:00: mouth at [place] bedtime. Medical Branch nortriptyli 2017-0 Yes 25mg Take 1 Univ ers ne 25 mg 8-17 capsule by ity o f capsule 00:00: mouth at [place] 00 bedtime. Medical Branch nortriptyli 2017-0 Yes 25mg Take 1 Univ ers ne 25 mg 8-17 capsule by ity o f capsule 00:00: mouth at [place] 00 bedtime. Medical Branch nortriptyli 2017-0 Yes 25mg Take 1 Univ ers ne 25 mg 8-17 capsule by ity o f capsule 00:00: mouth at [place] bedtime. Medical Branch nortriptyli 2017-0 Yes 25mg Take 1 Univ ers ne 25 mg 8-17 capsule by ity o f capsule 00:00: mouth at [place] 00 bedtime. Medical Branch nortriptyli 2017-0 Yes 25mg Take 1 Univ ers ne 25 mg 8-17 capsule by ity o f capsule 00:00: mouth at [place] 00 bedtime. Medical Branch nortriptyli 2017-0 Yes 25mg Take 1 Univ ers ne 25 mg 8-17 capsule by ity o f capsule 00:00: mouth at [place] 00 bedtime. Medical Branch nortriptyli 2017-0 Yes 25mg Take 1 Univ ers ne 25 mg 8-17 capsule by ity o f capsule 00:00: mouth at [place] [address] bedtime. Medical Branch nortriptyli 2017-0 Yes 25mg Take 1 Univ ers ne 25 mg 8-17 capsule by ity o f capsule 00:00: mouth at [place] [address] bedtime. Medical Branch nortriptyli 2017-0 Yes 25mg Take 1 Univ ers ne 25 mg 8-17 capsule by ity o f capsule 00:00: mouth at [place] [address] bedtime. Medical Branch nortriptyli 2017-0 Yes 25mg Take 1 Univ ers ne 25 mg 8-17 capsule by ity o f capsule 00:00: mouth at [place] [address] bedtime. Medical Branch nortriptyli 2017-0 Yes 25mg Take 1 Univ ers ne 25 mg 8-17 capsule by ity o f capsule 00:00: mouth at [place] [address] bedtime. Medical Branch nortriptyli 2017-0 Yes 25mg Take 1 Univ ers ne 25 mg 8-17 capsule by ity o f capsule 00:00: mouth at [place] [address] bedtime. Medical Branch nortriptyli 2017-0 Yes 25mg Take 1 Univ ers ne 25 mg 8-17 capsule by ity o f capsule 00:00: mouth at [place] [address] bedtime. Medical Branch clotrimazol 2017-0 No 1% e 1 % -08 topical 00:00: cream 00 terbinafine 2017-0 No 1mg HCl 250 mg 5-08 tablet 00:00: 00 isosorbide 2017-0 Yes 30mg Take 30 mg U nivers mononitrate 4-20 by mouth ity of 30 mg 24 hr 00:00: as needed. [place] tablet 00 Medical Branch isosorbide 2017-0 Yes 30mg Take 30 mg U nivers mononitrate 4-20 by mouth ity of 30 mg 24 hr 00:00: as needed. [place] tablet 00 Medical Branch isosorbide 2017-0 Yes 30mg Take 30 mg U nivers mononitrate 4-20 by mouth ity of 30 mg 24 hr 00:00: as needed. [place] tablet 00 Medical Branch isosorbide 2017-0 Yes [...] hr 00:00: as needed. [place] tablet 00 [facility] Branch isosorbide 2017-0 Yes 30mg Take 30 mg U nivers mononitrate 4-20 by mouth ity of 30 mg 24 hr 00:00: as needed. [place] tablet 00 [facility] isosorbide 2017-0 Yes 30mg Take 30 mg U nivers mononitrate 4-20 by mouth ity of 30 mg 24 hr 00:00: as needed. [place] tablet 00 [facility] isosorbide 2017-0 Yes 30mg Take 30 mg [...] hr 00:00: as needed. [place] tablet 00 [facility] Branch isosorbide 2017-0 Yes 30mg Take 30 mg U nivers mononitrate 4-20 by mouth ity of 30 mg 24 hr 00:00: as needed. [place] tablet 00 [facility] Branch isosorbide 2017-0 Yes 30mg Take 30 [...] needed. [place] tablet 00 Medical Branch isosorbide 2016-0 Yes 30mg Take 30 mg U nivers mononitrate 4-20 by mouth ity of 30 mg 24 hr 00:00: as needed. [place] tablet 00 Medical Branch isosorbide 2016-0 Yes 30mg Take 30 mg U nivers mononitrate 4-20 by mouth ity of 30 mg 24 hr 00:00: as needed. [place] tablet 00 Medical Branch isosorbide 2016-0 Yes 30mg Take 30 mg U nivers mononitrate 4-20 by mouth ity of 30 mg 24 hr 00:00: as needed. [place] tablet 00 Medical Branch isosorbide 2016-0 Yes 30mg Take 30 mg U nivers mononitrate 4-20 by mouth ity of 30 mg 24 hr 00:00: as needed. [place] tablet 00 Medical Branch isosorbide 2016-0 Yes 30mg Take 30 mg U nivers mononitrate 4-20 by mouth ity of 30 mg 24 hr 00:00: as needed. [place] tablet 00 Medical Branch isosorbide 2016-0 Yes 30mg Take 30 mg [...] needed. [place] tablet 00 Medical Branch HYDROcodone 2016-0 Yes 1{tbl} Take 1 Un jackie -acetaminop 4-18 tablet by ity of hen 10-325 00:00: mouth as [place] as mg tablet 00 needed. Medical Branch HYDROcodone 2016-0 Yes 1{tbl} Take 1 Un jackie -acetaminop 4-18 tablet by ity of hen 10-325 00:00: mouth as [place] as mg tablet 00 needed. Medical Branch HYDROcodone 2016-0 Yes 1{tbl} Take 1 Un jackie -acetaminop [...] -acetaminop 4-18 tablet by ity of hen 5-325 00:00: mouth [place] mg tablet 00 every 8 Medical (eight) Branch hours as needed. Pt takes PRN HYDROcodone 2017-0 Yes 1{tbl} Take 1 Un jackie -acetaminop 4-18 tablet by ity of hen 5-325 00:00: mouth [place] mg tablet 00 every 8 Medical (eight) Branch hours as needed. Pt takes PRN VITAMIN D2 2017-0 Yes [id number] Take Unive rs 50,000 unit 4-17 50,000 ity of capsule 00:00: Units by [place] [facility] Medical weekly. Branch VITAMIN D2 2017-0 Yes [id number] Take Unive rs 50,000 unit 4-17 50,000 ity of capsule 00:00: Units by [place] [facility] Medical weekly. Branch VITAMIN D2 2017-0 Yes [id number] Take Unive rs 50,000 unit 4-17 50,000 ity of capsule 00:00: Units by [place] 00 mouth Medical weekly. Branch VITAMIN D2 2017-0 Yes [id number] Take Unive rs 50,000 unit 4-17 50,000 ity of capsule 00:00: Units by [address] weekly. [place] VITAMIN D2 Yes [id number] Take Unive rs 50,000 unit 4-17 50,000 ity of capsule 00:00: Units by [address] weekly. [place] VITAMIN D2 Yes [id number] Take Unive rs 50,000 unit 4-17 50,000 ity of capsule 00:00: Units by [address] weekly. [place] VITAMIN D2 Yes [id number] Take Unive rs 50,000 unit 4-17 50,000 ity of capsule 00:00: Units by [address] weekly. [place] VITAMIN D2 Yes [id number] Take Unive rs 50,000 unit 4-17 50,000 ity of capsule 00:00: Units by [address] weekly. [place] VITAMIN D2 Yes [id number] Take Unive rs 50,000 unit 4-17 50,000 ity of capsule 00:00: Units by [address] weekly. [place] VITAMIN D2 Yes [id number] Take Unive rs 50,000 unit 4-17 50,000 ity of capsule 00:00: Units by [address] weekly. [place] VITAMIN D2 Yes [id number] Take Unive rs 50,000 unit 4-17 50,000 ity of capsule 00:00: Units by [address] weekly. [place] VITAMIN D2 Yes [id number] Take Unive rs 50,000 unit 4-17 50,000 ity of capsule 00:00: Units by [address] weekly. [place] VITAMIN D2 Yes [id number] Take Unive rs 50,000 unit 4-17 50,000 ity of capsule 00:00: Units by [address] weekly. [place] VITAMIN D2 Yes [id number] Take Unive rs 50,000 unit 4-17 50,000 ity of capsule 00:00: Units by [address] weekly. [place] VITAMIN D2 Yes [id number] Take Unive rs 50,000 unit 4-17 50,000 ity of capsule 00:00: Units by [address] weekly. [place] VITAMIN D2 Yes [id number] Take Unive rs 50,000 unit 4-17 50,000 ity of capsule 00:00: Units by [address] weekly. [place] VITAMIN D2 2016-0 Yes [id number] Take Unive rs 50,000 unit 4-17 50,000 ity of capsule 00:00: Units by [address] weekly. [place] VITAMIN D2 Yes [id number] Take Unive rs 50,000 unit 4-17 50,000 ity of capsule 00:00: Units by [address] weekly. [place] VITAMIN D2 2016- Yes [id number] Take Unive rs 50,000 unit 4-17 50,000 ity of capsule 00:00: Units by [address] weekly. [place] VITAMIN D2 Yes [id number] Take Unive rs 50,000 unit 4-17 50,000 ity of capsule 00:00: Units by [address] weekly. [place] VITAMIN D2 Yes [id number] Take Unive rs 50,000 unit 4-17 50,000 ity of capsule 00:00: Units by [address] weekly. [place] VITAMIN D2 2016- Yes [id number] Take Unive rs 50,000 unit 4-17 50,000 ity of capsule 00:00: Units by [address] weekly. [place] VITAMIN D2 Yes [id number] Take Unive rs 50,000 unit 4-17 50,000 ity of capsule 00:00: Units by [address] weekly. [place] VITAMIN D2 Yes [id number] Take Unive rs 50,000 unit 4-17 50,000 ity of capsule 00:00: Units by [address] weekly. [place] VITAMIN D2 2016- Yes [id number] Take Unive rs 50,000 unit 4-17 50,000 ity of capsule 00:00: Units by [address] weekly. [place] VITAMIN D2 Yes [id number] Take Unive rs 50,000 unit 4-17 50,000 ity of capsule 00:00: Units by [address] weekly. [place] VITAMIN D2 Yes [id number] Take Unive rs 50,000 unit 4-17 50,000 ity of capsule 00:00: Units by [address] weekly. [place] VITAMIN D2 2016- Yes [id number] Take Unive rs 50,000 unit 4-17 50,000 ity of capsule 00:00: Units by [place] 00 mouth Medical weekly. Branch VITAMIN D2 Yes [id number] Take Unive rs 50,000 unit 4-17 50,000 ity of capsule 00:00: Units by mouth Medical weekly. Branch VITAMIN D2 Yes [id number] Take Unive rs 50,000 unit 4-17 50,000 ity of capsule 00:00: Units by mouth Medical weekly. Branch VITAMIN D2 Yes [id number] Take 1 Uni vers 50,000 unit 4-17 capsule by it y of capsule 00:00: mouth [place] 00 weekly. Medical Branch VITAMIN D2 0 Yes [id number] Take 1 Uni vers 50,000 unit 4-17 capsule by it y of capsule 00:00: mouth [place] 00 weekly. Medical Branch VITAMIN D2 Yes [id number] Take 1 Uni vers 50,000 unit 4-17 capsule by it y of capsule 00:00: mouth [place] 00 weekly. Medical Every two Branch weeks VITAMIN D2 Yes [id number] Take 1 Uni vers 50,000 unit 4-17 capsule by it y of capsule 00:00: mouth [place] 00 weekly. Medical Every two Branch weeks Bactrim DS No 1mg 800 mg-160 4-07 mg tablet 00:00: 00 atenolol 0 Yes 100mg Take 100 Univ ers 100 mg 4-04 mg by ity of tablet 00:00: mouth [place] 00 daily. Medical Branch atenolol 0 Yes 100mg Take 100 Univ ers 100 mg 4-04 mg by ity of tablet 00:00: mouth [place] 00 daily. Medical Branch atenolol 0 Yes 100mg Take 100 Univ ers 100 mg 4-04 mg by ity of tablet 00:00: mouth [place] 00 daily. Medical Branch atenolol 0 Yes 100mg Take 100 Univ ers 100 mg 4-04 mg by ity of tablet 00:00: mouth [place] 00 daily. Medical Branch atenolol 0 Yes 100mg Take 100 Univ ers 100 mg 4-04 mg by ity of tablet 00:00: mouth [place] 00 daily. Medical Branch atenolol 0 Yes 100mg Take 100 Univ ers 100 mg 4-04 mg by ity of tablet 00:00: mouth [place] 00 daily. Medical Branch atenolol 2016-0 Yes 100mg [...] Medical Branch atenolol 2017-0 Yes 100mg Take 1 Univer s 100 mg 4-04 tablet by ity of tablet 00:00: mouth in [place] 00 the Medical morning. Branch atenolol 2017-0 Yes 100mg Take 1 Univer s 100 mg 4-04 tablet by ity of tablet 00:00: mouth in [place] 00 the Medical morning. Branch atenolol 2017-0 Yes 100mg Take 1 Univer s 100 mg 4-04 tablet by ity of tablet 00:00: mouth in [place] 00 the Medical morning. Branch atenolol 2017-0 Yes 100mg Take 1 Univer s 100 mg 4-04 tablet by ity of tablet 00:00: mouth in [place] 00 the Medical morning. Branch triamcinolo 0 No 1% ne 3-20 acetonide 00:00: 0.025 % 00 topical cream loratadine 0 No 1mg 10 mg 3-20 tablet 00:00: 00 atenolol 0 No 1mg 100 mg 3-04 tablet 00:00: 00 aspirin 81 0 No 1mg mg 3-04 tablet,laura 00:00: yed release 00 naproxen 0 No 1mg 250 mg 3-04 tablet 00:00: 00 spironolact 0 No 1mg one 25 mg 3-04 tablet 00:00: 00 ondansetron 0 No 1mg HCl 4 mg 3-04 tablet 00:00: 00 promethazin 0 No 1mg e 12.5 mg 3-04 tablet 00:00: 00 gabapentin 0 No 1mg 300 mg 3-04 capsule 00:00: 00 cyanocobala 0 No 2mcg/mL min (vit 3-04 B-12) 1,000 00:00: mcg/mL 00 injection solution aspirin Yes 81mg Take 1 Univers (ASPIRIN [...] ity of tablet 00:00: mouth at [place] 00 bedtime. Medical Branch aspirin Yes 81mg Take 1 [...] ity of tablet 00:00: mouth at [place] 00 bedtime. Medical Branch aspirin 2017-0 Yes [...] proMETHazin 2017-0 Yes 12.5mg Take 1 Un jakcie e 12.5 mg 1-30 tablet by ity [...] ity of tablet 00:00: mouth at [place] 00 bedtime. Medical Branch aspirin 2017-0 Yes [...] ity of tablet 00:00: mouth at [place] 00 bedtime. Medical Branch aspirin 2017-0 Yes [...] EC 00 daily. Medical tablet Branch aspirin Yes 81mg Take 1 Univers (ASPIRIN 1-30 tablet by ity of LOW DOSE) 00:00: mouth [place] 81 mg EC 00 daily. Medical tablet Branch aspirin Yes 81mg Take 1 Univers (ASPIRIN 1-30 tablet by ity of LOW DOSE) 00:00: mouth [place] 81 mg EC 00 daily. Medical tablet Branch atorvastati 2021- No 40mg Take 1 Uni vers n 40 mg 1-30 -27 tablet by ity of tablet 00:00: 00:00 mouth at [place] 00 :00 bedtime. Medical Branch atorvastati 2021- No 40mg Take 1 Uni vers n 40 mg 1-30 -27 tablet by ity of tablet 00:00: 00:00 mouth at [place] 00 :00 bedtime. Medical Branch proMETHazin 2021- No 12.5mg Take 1 U nivers e 12.5 mg 1-30 -12 tablet by ity of tablet 00:00: 00:00 mouth [place] 00 :00 every 6 Medical (six) Branch hours as needed for Nausea and Vomiting (N/V). proMETHazin 2021- No 12.5mg Take 1 U nivers e 12.5 mg 1-30 -12 tablet by ity of tablet 00:00: 00:00 mouth [place] 00 :00 every 6 Medical (six) Branch hours as needed for Nausea and Vomiting (N/V). 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 1.5 mg 2-28 mL transdermal 00:00: patch (1 mg 00 over 3 days) meclizine 2015-06 No 1mg 25 mg 2-28 tablet 00:00: 00 Tessalon 2015-06 No 12mg Perles 100 2-28 mg capsule 00:00: 00 clotrimazol 2015-06 No 1% e 1 % 2-08 topical 00:00: cream 00 [place] 0.2 2015-06 No 1% % eye drops 1-18 00:00: 00 Transderm-S No 1mg/0.3 helicopter specialist 1.5 mg 8-26 mL transdermal 00:00: patch (1 mg 00 over 3 days) clarithromy 2015-0 No 1mg keshia 500 mg 6-29 tablet 00:00: 00 naproxen 2015-0 No 1mg 375 mg 6-23 tablet 00:00: 00 Tessalon 0 No 1mg Perles 100 6-23 mg capsule 00:00: 00 albuterol 2015-0 No 3/3 mL sulfate 2.5 6-23 (0.083 mg/3 mL 00:00: %) (0.083 %) 00 solution for nebulizatio n azithromyci 0 No 1mg n 250 mg 6-22 tablet 00:00: 00 azithromyci 0 No mg n 250 mg 6-22 tablet 00:00: 00 cyanocobala 0 No 2mcg/mL min (vit 6-16 B-12) 1,000 00:00: mcg/mL 00 injection solution Nasonex 50 0 No 2mcg/ac mcg/actuati 5-29 tuation on Clarissa 00:00: 00 Nexium 40 0 No 1mg mg 5-29 capsule,del 00:00: ayed 00 release atenolol 2015-0 No 1mg 100 mg 4-24 tablet 00:00: 00 Amitiza 24 0 No 1mcg mcg capsule 4-24 00:00: 00 Transderm-S 0 No 1mg/0.3 helicopter specialist 1.5 mg 3-11 mL transdermal 00:00: patch (1 mg 00 over 3 days) promethazin 0 No 5mg e 25 mg 1-12 tablet 00:00: 00 furosemide 0 No 1mg 40 mg 1-02 tablet 00:00: 00 meclizine 2014- No 1mg 25 mg 1-10 tablet 00:00: 00 CREON 0 Yes 2{tbl} Take 2 Univers [...] 4-14 Tabs by ity o f 000- :00: mouth 2 [place] 180,000 00 (two) Medical [...] 1 puff Commo n Ellipta Ellipta Miller [facility] Loratadine Loratadine Yes Tonio 1 tablet Common Miller [facility] Vitamin B12 Vitamin B12 Yes Tonio 1 tablet Common Miller [facility] Synthroid Synthroid Yes Tonio 1 tablet Common Miller on an Spirit empty - CHI stomach in [facility] Aspirin Aspirin Yes Tonio TAKE 1 Commo n Miller TABLET BY Spirit MOUTH - CHI EVERY DAY [facility] Aspirin Low Aspirin Low Yes Tonio TAKE 1 Common Dose Dose Miller TABLET BY Spirit MOUTH - CHI EVERY DAY [facility] Atenolol Atenolol Yes Tonoi TAKE 1 Com mon [place] TABLET BY Spirit MOUTH - CHI EVERY DAY [facility] Nexium Nexium Yes Tonio TAKE ONE Commo n Miller CAPSULE BY Spirit MOUTH - CHI EVERY DAY [facility] ProAir HFA ProAir HFA Yes Tonio 2 puffs as Common Miller needed [facility] Furosemide Furosemide Yes Tonio 1 tablet Common Miller [facility] Venlafaxine Venlafaxine Yes Tonio TAKE ONE Common HCl ER HCl ER Miller CAPSULE BY Spir it MOUTH - CHI EVERY DAY [facility] Simvastatin Simvastatin Yes Tonio 1 tablet Common Miller in the [facility] evening [facility] Simvastatin Simvastatin Yes Tonio 1 tablet Common Miller in the [facility] evening [facility] Levothyroxi Levothyroxi Yes Tonio TAKE 1 Common ne Sodium ne Sodium Miller TABLET BY Spirit MOUTH - CHI EVERY DAY [facility] Aspirin Aspirin Yes Tonio TAKE 1 Commo n Miller TABLET BY [facility] MOUTH - CHI EVERY DAY [facility] Clopidogrel Clopidogrel Yes Tonio 1 tablet Common Bisulfate Bisulfate Miller Spir [facility] Promethazin Promethazin Yes Tonio 1 ml as Common e HCl e HCl Miller needed [facility] Gabapentin Gabapentin Yes Tonio TAKE 1 Common Miller CAPSULE BY [facility] MOUTH - CHI EVERY DAY [facility] Zofran Zofran Yes Tonio 1 tablet Commo n Miller as needed [facility] Docusate Docusate Yes Tonio TAKE 1 Com mon Sodium Sodium Miller CAPSULE BY Spir it MOUTH - CHI TWICE A [facility] Spironolact Spironolact Yes Tonio TAKE 1 Common one one Miller TABLET BY [facility] MOUTH - CHI EVERY DAY [facility] Venlafaxine Venlafaxine Yes Tonio 1 capsule Common HCl ER HCl ER Miller with food [facility] Nasonex Nasonex Yes Tonio 2 sprays Com mon Miller in each [facility] nostril [facility] Hydrocodone Hydrocodone Yes Tonio 1 tablet Common -Acetaminop -Acetaminop Miller as needed [facility] hen [facility] Clotrimazol Clotrimazol Yes Tonio 1 Common e e Miller applicatio [facility] n [facility] HYDROcodone HYDROcodone No 1{table QID HYDROcodon -Acetaminop [...] D3 Vitamin D3 No 1{capsu Vitamin D3 24758 UNIT 36023 UNIT le} 89381 UNIT Synthroid Synthroid No QD Synthroid 25 [...] D3 Vitamin D3 No 1{capsu Vitamin D3 59268 UNIT 54591 UNIT le} 58393 UNIT Synthroid Synthroid No QD Synthroid 25 [...] D3 Vitamin D3 No 1{capsu Vitamin D3 06561 UNIT 22056 UNIT le} 08502 UNIT Furosemide Furosemide No 1{table QD Furosemide [...] D3 Vitamin D3 No 1{capsu Vitamin D3 88383 UNIT 03932 UNIT le} 32953 UNIT Furosemide Furosemide No 1{table QD Furosemide [...] D3 Vitamin D3 No 1{capsu Vitamin D3 58962 UNIT 28567 UNIT le} 97048 UNIT Furosemide Furosemide No 1{table QD Furosemide [...] D3 Vitamin D3 No 1{capsu Vitamin D3 04470 UNIT 63009 UNIT le} 61785 UNIT Furosemide Furosemide No 1{table QD Furosemide [...] D3 Vitamin D3 No 1{capsu Vitamin D3 73280 UNIT 53245 UNIT le} 62366 UNIT Furosemide Furosemide No 1{table QD Furosemide [...] D3 Vitamin D3 No 1{capsu Vitamin D3 46764 UNIT 76053 UNIT le} 62146 UNIT NexIUM 40 NexIUM 40 No NexIUM [...] D3 Vitamin D3 No 1{capsu Vitamin D3 87067 UNIT 98320 UNIT le} 54688 UNIT NexIUM 40 NexIUM 40 No NexIUM [...] D3 Vitamin D3 No 1{capsu Vitamin D3 52363 UNIT 52320 UNIT le} 21882 UNIT Furosemide Furosemide No 1{table QD Furosemide 20 MG 20 MG t} 20 MG Vitamin D3 Vitamin D3 No 1{capsu Vitamin D3 69668 UNIT 72841 UNIT le} 54367 UNIT Atenolol Atenolol No QD Atenolol 100 [...] D3 Vitamin D3 No 1{capsu Vitamin D3 65093 UNIT 81632 UNIT le} 50607 UNIT Venlafaxine Venlafaxine No QD Venlafaxin HCl [...] D3 Vitamin D3 No 1{capsu Vitamin D3 12503 UNIT 39260 UNIT le} 35635 UNIT Simvastatin Simvastatin No 1{table QD Simvastati 40 MG 40 MG t_in_th n 40 MG e_eveni ng} Clopidogrel Clopidogrel No 1{table QD Clopidogre Bisulfate Bisulfate t} l 75 MG 75 MG Bisulfate 75 MG Synthroid Synthroid No QD Synthroid 25 MCG 25 MCG 25 MCG Vitamin D3 Vitamin D3 No 1{capsu Vitamin D3 78146 UNIT 88235 UNIT le} 54930 UNIT Venlafaxine Venlafaxine No 1{capsu QD Venlafaxin [...] D3 Vitamin D3 No 1{capsu Vitamin D3 40114 UNIT 75497 UNIT le} 73783 UNIT Simvastatin Simvastatin No 1{table QD Simvastati [...] D3 Vitamin D3 No 1{capsu Vitamin D3 62431 UNIT 03542 UNIT le} 68937 UNIT ProAir HFA ProAir HFA No 2{puffs [...] D3 Vitamin D3 No 1{capsu Vitamin D3 98323 UNIT 23960 UNIT le} 64994 UNIT Spironolact Spironolact No 1{table QD Spironolac [...] D3 Vitamin D3 No 1{capsu Vitamin D3 17622 UNIT 07370 UNIT le} 50456 UNIT Clopidogrel Clopidogrel No 1{table QD Clopidogre [...] D3 Vitamin D3 No 1{capsu Vitamin D3 02484 UNIT 16264 UNIT le} 71702 UNIT Venlafaxine Venlafaxine No QD Venlafaxin HCl [...] D3 Vitamin D3 No 1{capsu Vitamin D3 83158 UNIT 23334 UNIT le} 63926 UNIT Furosemide Furosemide No 1{table QD Furosemide [...] D3 Vitamin D3 No 1{capsu Vitamin D3 45705 UNIT 94485 UNIT le} 39544 UNIT Levothyroxi Levothyroxi No Levothyrox ne Sodium [...] D3 Vitamin D3 No 1{capsu Vitamin D3 98054 UNIT 14979 UNIT le} 85711 UNIT Furosemide Furosemide No 1{table QD Furosemide [...] D3 Vitamin D3 No 1{capsu Vitamin D3 43684 UNIT 52967 UNIT le} 07646 UNIT Zofran 4 MG Zofran 4 MG [...] D3 Vitamin D3 No 1{capsu Vitamin D3 37156 UNIT 13570 UNIT le} 40943 UNIT Synthroid Synthroid No QD Synthroid 25 [...] D3 Vitamin D3 No 1{capsu Vitamin D3 81226 UNIT 78922 UNIT le} 92932 UNIT Vitamin D3 Vitamin D3 No 1{capsu Vitamin D3 87451 UNIT 32826 UNIT le} 00307 UNIT NexIUM 40 NexIUM 40 No NexIUM [...] D3 Vitamin D3 No 1{capsu Vitamin D3 73707 UNIT 78644 UNIT le} 80813 UNIT HYDROcodone HYDROcodone No 1{table QID HYDROcodon [...] D3 Vitamin D3 No 1{capsu Vitamin D3 82278 UNIT 75891 UNIT le} 22579 UNIT Atenolol Atenolol No Atenolol 100 MG [...] D3 Vitamin D3 No 1{capsu Vitamin D3 82481 UNIT 35353 UNIT le} 60907 UNIT HYDROcodone HYDROcodone No 1{table QID HYDROcodon [...] D3 Vitamin D3 No 1{capsu Vitamin D3 32841 UNIT 96293 UNIT le} 62895 UNIT Atenolol Atenolol No Atenolol 100 MG [...] D3 Vitamin D3 No 1{capsu Vitamin D3 84152 UNIT 60997 UNIT le} 53189 UNIT Venlafaxine Venlafaxine No QD Venlafaxin HCl [...] D3 Vitamin D3 No 1{capsu Vitamin D3 88372 UNIT 97670 UNIT le} 86669 UNIT Clopidogrel Clopidogrel No 1{table QD Clopidogre Bisulfate Bisulfate t} l 75 MG 75 MG Bisulfate 75 MG NexIUM 40 NexIUM 40 No NexIUM 40 MG MG MG Levothyroxi Levothyroxi No Levothyrox ne Sodium ne Sodium ine Sodium 50 MCG 50 MCG 50 MCG Vitamin D3 Vitamin D3 No 1{capsu Vitamin D3 29269 UNIT 30519 UNIT le} 77348 UNIT Trelegy Trelegy No 1{puff} QD Trelegy [...] D3 Vitamin D3 No 1{capsu Vitamin D3 21836 UNIT 47741 UNIT le} 29420 UNIT ProAir HFA ProAir HFA No 2{puffs [...] D3 Vitamin D3 No 1{capsu Vitamin D3 52920 UNIT 81029 UNIT le} 13387 UNIT NexIUM 40 NexIUM 40 No NexIUM [...] D3 Vitamin D3 No 1{capsu Vitamin D3 59194 UNIT 38673 UNIT le} 19520 UNIT Hydrocodone Hydrocodone No 1{table QD Hydrocodon [...] D3 Vitamin D3 No 1{capsu Vitamin D3 24257 UNIT 11872 UNIT le} 06693 UNIT Aspirin 81 Aspirin 81 No Aspirin [...] D3 Vitamin D3 No 1{capsu Vitamin D3 70967 UNIT 70043 UNIT le} 23531 UNIT Gabapentin Gabapentin No Gabapentin 100 MG [...] D3 Vitamin D3 No 1{capsu Vitamin D3 69050 UNIT 38232 UNIT le} 24620 UNIT NexIUM 40 NexIUM 40 No NexIUM 40 MG MG MG Vitamin D3 Vitamin D3 No 1{capsu Vitamin D3 76996 UNIT 26876 UNIT le} 96190 UNIT Furosemide Furosemide No 1{table QD Furosemide [...] D3 Vitamin D3 No 1{capsu Vitamin D3 85749 UNIT 54079 UNIT le} 92501 UNIT Aspirin 81 Aspirin 83 No Aspirin [...] D3 Vitamin D3 No 1{capsu Vitamin D3 60079 UNIT 02184 UNIT le} 99269 UNIT Levothyroxi Levothyroxi No Levothyrox ne Sodium [...] D3 Vitamin D3 No 1{capsu Vitamin D3 67384 UNIT 47535 UNIT le} 24357 UNIT Aspirin 81 Aspirin 81 No Aspirin [...] D3 Vitamin D3 No 1{capsu Vitamin D3 96557 UNIT 91660 UNIT le} 54273 UNIT Levothyroxi Levothyroxi No Levothyrox ne Sodium [...] D3 Vitamin D3 No 1{capsu Vitamin D3 70239 UNIT 87907 UNIT le} 50322 UNIT Linzess 145 Linzess 145 No 1{capsu [...] D3 Vitamin D3 No 1{capsu Vitamin D3 40191 UNIT 53930 UNIT le} 24987 UNIT Aspirin Low Aspirin Low No Aspirin [...] D3 Vitamin D3 No 1{capsu Vitamin D3 77767 UNIT 18312 UNIT le} 30914 UNIT Linzess 145 Linzess 145 No 1{capsu [...] D3 Vitamin D3 No 1{capsu Vitamin D3 51554 UNIT 28735 UNIT le} 86643 UNIT Gabapentin Gabapentin No Gabapentin 100 MG [...] D3 Vitamin D3 No 1{capsu Vitamin D3 06277 UNIT 70472 UNIT le} 28736 UNIT Zofran 4 MG Zofran 4 MG [...] D3 Vitamin D3 No 1{capsu Vitamin D3 44402 UNIT 62527 UNIT le} 36217 UNIT Zofran 4 MG Zofran 4 MG [...] D3 Vitamin D3 No 1{capsu Vitamin D3 80900 UNIT 21025 UNIT le} 94183 UNIT Zofran 4 MG Zofran 4 MG [...] D3 Vitamin D3 No 1{capsu Vitamin D3 65050 UNIT 14236 UNIT le} 50489 UNIT Trelegy Trelegy No 1{puff} QD Trelegy [...] D3 Vitamin D3 No 1{capsu Vitamin D3 62070 UNIT 87808 UNIT le} 65991 UNIT Aspirin 81 Aspirin 81 No Aspirin [...] D3 Vitamin D3 No 1{capsu Vitamin D3 52662 UNIT 89646 UNIT le} 04986 UNIT Linzess 145 Linzess 145 No 1{capsu [...] D3 Vitamin D3 No 1{capsu Vitamin D3 78393 UNIT 37376 UNIT le} 40555 UNIT Aspirin 81 Aspirin 81 No Aspirin [...] D3 Vitamin D3 No 1{capsu Vitamin D3 22991 UNIT 10561 UNIT le} 11619 UNIT Linzess 145 Linzess 145 No 1{capsu [...] D3 Vitamin D3 No 1{capsu Vitamin D3 24297 UNIT 70059 UNIT le} 67737 UNIT Venlafaxine Venlafaxine No 1{capsu QD Venlafaxin [...] D3 Vitamin D3 No 1{capsu Vitamin D3 95710 UNIT 20864 UNIT le} 77569 UNIT Levothyroxi Levothyroxi No Levothyrox ne Sodium [...] D3 Vitamin D3 No 1{capsu Vitamin D3 91223 UNIT 18714 UNIT le} 92634 UNIT Spironolact Spironolact No 1{table QD Spironolac [...] D3 Vitamin D3 No 1{capsu Vitamin D3 85522 UNIT 97700 UNIT le} 60954 UNIT Linzess 145 Linzess 145 No 1{capsu [...] D3 Vitamin D3 No 1{capsu Vitamin D3 87451 UNIT 71662 UNIT le} 42910 UNIT Venlafaxine Venlafaxine No 1{capsu QD Venlafaxin [...] D3 Vitamin D3 No 1{capsu Vitamin D3 96517 UNIT 20331 UNIT le} 74309 UNIT Levothyroxi Levothyroxi No Levothyrox ne Sodium [...] D3 Vitamin D3 No 1{capsu Vitamin D3 22779 UNIT 71949 UNIT le} 26508 UNIT Atenolol Atenolol No 1{table QD Atenolol [...] D3 Vitamin D3 No 1{capsu Vitamin D3 85764 UNIT 81271 UNIT le} 24018 UNIT Levothyroxi Levothyroxi No Levothyrox ne Sodium [...] D3 Vitamin D3 No 1{capsu Vitamin D3 97354 UNIT 15107 UNIT le} 18076 UNIT Synthroid Synthroid No QD Synthroid 25 [...] D3 Vitamin D3 No 1{capsu Vitamin D3 97067 UNIT 46910 UNIT le} 69554 UNIT traZODone traZODone No traZODone HCl 100 [...] D3 Vitamin D3 No 1{capsu Vitamin D3 64669 UNIT 67956 UNIT le} 35219 UNIT Gabapentin Gabapentin No Gabapentin 100 MG [...] D3 Vitamin D3 No 1{capsu Vitamin D3 07190 UNIT 19256 UNIT le} 42611 UNIT Simvastatin Simvastatin No 1{table QD Simvastati [...] D3 Vitamin D3 No 1{capsu Vitamin D3 12717 UNIT 02505 UNIT le} 23946 UNIT Gabapentin Gabapentin No Gabapentin 100 MG [...] D3 Vitamin D3 No 1{capsu Vitamin D3 99966 UNIT 53168 UNIT le} 83848 UNIT Simvastatin Simvastatin No 1{table QD Simvastati [...] D3 Vitamin D3 No 1{capsu Vitamin D3 49987 UNIT 42176 UNIT le} 80678 UNIT Trelegy Trelegy No 1{puff} QD Trelegy [...] D3 Vitamin D3 No 1{capsu Vitamin D3 14414 UNIT 52715 UNIT le} 26172 UNIT Hydrocodone Hydrocodone No 1{table QD Hydrocodon [...] D3 Vitamin D3 No 1{capsu Vitamin D3 27498 UNIT 68165 UNIT le} 38497 UNIT Levothyroxi Levothyroxi No Levothyrox ne Sodium [...] D3 1.25 MG 1.25 MG 1.25 MG (71383 UT) (15373 UT) (88260 UT) Atenolol Atenolol No Atenolol 100 MG [...] D3 1.25 MG 1.25 MG 1.25 MG (44506 UT) (96076 UT) (54913 UT) Clopidogrel Clopidogrel No 1{table QD Clopidogre [...] D3 1.25 MG 1.25 MG 1.25 MG (29495 UT) (41645 UT) (26573 UT) HYDROcodone HYDROcodone No 1{table QD HYDROcodon [...] D3 1.25 MG 1.25 MG 1.25 MG (49999 UT) (06639 UT) (92569 UT) HYDROcodone HYDROcodone No 1{table QD HYDROcodon [...] D3 1.25 MG 1.25 MG 1.25 MG (30266 UT) (68148 UT) (06247 UT) Venlafaxine Venlafaxine No QD Venlafaxin HCl [...] D3 1.25 MG 1.25 MG 1.25 MG (07836 UT) (72122 UT) (13320 UT) Aspirin 81 Aspirin 81 No Aspirin [...] D3 1.25 MG 1.25 MG 1.25 MG (25542 UT) (37219 UT) (77486 UT) Aspirin 81 Aspirin 81 No Aspirin [...] e HCl ER MG MG 150 MG Orphenadrin Orphenadrin No 1{table BID Orphenadri e Citrate e Citrate t} ne Citrate ER 100 MG ER 100 MG ER 100 MG Diclofenac Diclofenac No 1{table BID Diclofenac Sodium 75 Sodium 75 t_as_ne Sodium 75 MG MG eded} MG Furosemide Furosemide No Furosemide 40 MG 40 MG 40 MG Vitamin D3 Vitamin D3 No Vitamin D3 1.25 MG 1.25 MG 1.25 MG (78268 UT) (16405 UT) (52028 UT) Atenolol Atenolol No QD Atenolol 100 MG 100 MG 100 MG ProAir HFA ProAir HFA No 2{puffs QID ProAir HFA 108 (90 108 (90 _as_nee 108 (90 Base) Base) ded} Base) MCG/ACT MCG/ACT MCG/ACT NexIUM 40 NexIUM 40 No NexIUM 40 MG MG MG Spironolact Spironolact No 1{table QD Spironolac one 25 MG one 25 MG t} tone 25 MG Clopidogrel Clopidogrel No 1{table QD Clopidogre Bisulfate Bisulfate t} l 75 MG 75 MG Bisulfate 75 MG Furosemide Furosemide No Furosemide 40 MG 40 MG 40 MG Furosemide Furosemide No 1{table QD Furosemide 20 MG 20 MG t} 20 MG Aspirin 81 Aspirin 81 No Aspirin 81 MG MG MG Zofran 4 MG Zofran 4 MG No 1{table QD Zofran 4 t_as_ne MG eded} NexIUM 40 NexIUM 40 No NexIUM 40 MG MG MG Spironolact Spironolact No 1{table QD Spironolac one 25 MG one 25 MG t} tone 25 MG ProAir HFA ProAir HFA No 2{puffs QID ProAir HFA 108 (90 108 (90 _as_nee 108 (90 Base) Base) ded} Base) MCG/ACT MCG/ACT MCG/ACT HYDROcodone HYDROcodone No 1{table QD HYDROcodon -Acetaminop -Acetaminop t} e-Acetamin hen 5-325 hen 5-325 ophen MG MG 5-325 MG Orphenadrin Orphenadrin No 1{table BID Orphenadri e Citrate e Citrate t} ne Citrate ER 100 MG ER 100 MG ER 100 MG Simvastatin Simvastatin No Simvastati 40 [...] 150 MG Vitamin D3 Vitamin D3 No Vitamin D3 1.25 MG 1.25 MG 1.25 MG (92393 UT) (31147 UT) (55233 UT) Diclofenac Diclofenac No 1{table BID Diclofenac Sodium 75 Sodium 75 t_as_ne Sodium 75 MG MG eded} MG Linzess 145 Linzess 145 No 1{capsu [...] 4 t_as_ne MG eded} Furosemide Furosemide No Furosemide 40 MG 40 MG 40 MG Furosemide Furosemide No 1{table QD Furosemide 20 MG 20 MG t} 20 MG Aspirin 81 Aspirin 81 No Aspirin 81 MG MG MG Zofran 4 MG Zofran 4 MG No 1{table QD Zofran 4 t_as_ne MG eded} NexIUM 40 NexIUM 40 No NexIUM 40 MG MG MG Spironolact Spironolact No 1{table QD Spironolac one 25 MG one 25 MG t} tone 25 MG ProAir HFA ProAir HFA No 2{puffs QID ProAir HFA 108 (90 108 (90 _as_nee 108 (90 Base) Base) ded} Base) MCG/ACT MCG/ACT MCG/ACT HYDROcodone HYDROcodone No 1{table QD HYDROcodon -Acetaminop -Acetaminop t} e-Acetamin hen 5-325 hen 5-325 ophen MG MG 5-325 MG Orphenadrin Orphenadrin No 1{table BID Orphenadri e Citrate e Citrate t} ne Citrate ER 100 MG ER 100 MG ER 100 MG Simvastatin Simvastatin No Simvastati 40 MG 40 MG n 40 MG Furosemide Furosemide No 1{table QD Furosemide [...] 150 MG Vitamin D3 Vitamin D3 No Vitamin D3 1.25 MG 1.25 MG 1.25 MG (15491 UT) (45645 UT) (71536 UT) Diclofenac Diclofenac No 1{table BID Diclofenac Sodium 75 Sodium 75 t_as_ne Sodium 75 MG MG eded} MG Linzess 145 Linzess 145 No 1{capsu [...] MCG/INH MCG/INH 5 MCG/INH Furosemide Furosemide No Furosemide 40 MG 40 MG 40 MG Trelegy Trelegy No 1{puff} QD Trelegy Ellipta Ellipta Ellipta 100-62.5-25 100-62.5-25 100-62.5-2 MCG/INH MCG/INH 5 MCG/INH Aspirin 81 Aspirin 81 No Aspirin 81 MG MG MG Orphenadrin Orphenadrin No 1{table BID Orphenadri e Citrate e Citrate t} ne Citrate ER 100 MG ER 100 MG ER 100 MG Furosemide Furosemide No 1{table QD Furosemide 20 MG 20 MG t} 20 MG Clopidogrel Clopidogrel No 1{table QD Clopidogre Bisulfate Bisulfate t} l 75 MG 75 MG Bisulfate 75 MG Nexium 40 Nexium 40 No Nexium 40 MG MG MG Simvastatin Simvastatin No Simvastati 40 MG 40 MG n 40 MG Diclofenac Diclofenac No 1{table BID Diclofenac Sodium 75 Sodium 75 t_as_ne Sodium 75 MG MG eded} MG Linzess 145 Linzess 145 No 1{capsu [...] D3 1.25 MG 1.25 MG 1.25 MG (50504 UT) (68677 UT) (16784 UT) NexIUM 40 NexIUM 40 No NexIUM 40 MG MG MG Atenolol Atenolol No QD [...] D3 Vitamin D3 No 1{capsu Vitamin D3 68436 UNIT 19948 UNIT le} 01810 UNIT Atenolol Atenolol No QD Atenolol 100 [...] D3 Vitamin D3 No 1{capsu Vitamin D3 28961 UNIT 17516 UNIT le} 07871 UNIT Zofran 4 MG Zofran 4 MG [...] D3 Vitamin D3 No 1{capsu Vitamin D3 44843 UNIT 95435 UNIT le} 43432 UNIT Atenolol Atenolol No QD Atenolol 100 [...] D3 Vitamin D3 No 1{capsu Vitamin D3 18867 UNIT 12888 UNIT le} 36685 UNIT Gabapentin Gabapentin No Gabapentin 100 MG [...] D3 Vitamin D3 No 1{capsu Vitamin D3 45869 UNIT 50268 UNIT le} 41185 UNIT Gabapentin Gabapentin No Gabapentin 100 MG [...] D3 Vitamin D3 No 1{capsu Vitamin D3 42511 UNIT 58913 UNIT le} 37124 UNIT Gabapentin Gabapentin No Gabapentin 100 MG [...] D3 Vitamin D3 No 1{capsu Vitamin D3 59362 UNIT 24125 UNIT le} 18744 UNIT Gabapentin Gabapentin No Gabapentin 100 MG [...] D3 Vitamin D3 No 1{capsu Vitamin D3 11545 UNIT 22842 UNIT le} 45788 UNIT Hydrocodone Hydrocodone No 1{table QID Hydrocodon [...] D3 Vitamin D3 No 1{capsu Vitamin D3 88606 UNIT 87663 UNIT le} 95580 UNIT ProAir HFA ProAir HFA No 2{puffs [...] D3 Vitamin D3 No 1{capsu Vitamin D3 84670 UNIT 33741 UNIT le} 15624 UNIT ProAir HFA ProAir HFA No 2{puffs [...] D3 Vitamin D3 No 1{capsu Vitamin D3 18846 UNIT 84347 UNIT le} 29140 UNIT ProAir HFA ProAir HFA No 2{puffs [...] D3 Vitamin D3 No 1{capsu Vitamin D3 69211 UNIT 77126 UNIT le} 64887 UNIT ProAir HFA ProAir HFA No 2{puffs [...] D3 Vitamin D3 No 1{capsu Vitamin D3 23488 UNIT 28376 UNIT le} 54022 UNIT Linzess 145 Linzess 145 No 1{capsu [...] D3 Vitamin D3 No 1{capsu Vitamin D3 58382 UNIT 37663 UNIT le} 38011 UNIT ProAir HFA ProAir HFA No 2{puffs [...] D3 Vitamin D3 No 1{capsu Vitamin D3 53448 UNIT 79158 UNIT le} 54158 UNIT Aspirin 81 Aspirin 81 No Aspirin 81 MG MG MG Immunizations Ordered Filled Immunization Date Status Comments [facility] e Immunization Name Name FLUZONE HIGH DOSE FLUZONE HIGH DOSE 2022-04-29 Completed [facility] - OVER 65 OVER 65 14:36:00 [facility] FLUZONE HIGH DOSE FLUZONE HIGH DOSE 2022-04-29 Completed [facility] - OVER 65 OVER 65 14:36:00 [facility] FLUZONE HIGH DOSE FLUZONE HIGH DOSE 2022-04-29 Completed [facility] - OVER 65 OVER 65 14:36:00 [facility] FLUZONE HIGH DOSE FLUZONE HIGH DOSE 2022-04-29 Completed [facility] - OVER 65 OVER 65 14:36:00 [facility] FLUZONE HIGH DOSE FLUZONE HIGH DOSE 2022-04-29 Completed [facility] - OVER 65 OVER 65 14:36:00 [facility] FLUZONE HIGH DOSE FLUZONE HIGH DOSE 2022-04-29 Completed [facility] - OVER 65 OVER 65 14:36:00 [facility] FLUZONE HIGH DOSE FLUZONE HIGH DOSE 2022-04-29 Completed [facility] - OVER 65 OVER 65 14:36:00 [facility] Vitamin B12 Vitamin B12 2021-03-23 [facility]Cyanoc[facility] (Cyanocobalamin[facility] 09:40:00 [facility] Vitamin B12 Vitamin B12 2021-03-23 [facility] (Cyanocobalamin[facility] (Cyanocobalamin) 09:40:00 [facility] Vitamin B12 Vitamin B12 2021-02-15 [facility] (Cyanocobalamin[facility] (Cyanocobalamin) 08:57:00 [facility] Vitamin B12 Vitamin B12 2021-02-15 [facility] (Cyanocobalamin[facility] (Cyanocobalamin) 08:57:00 [facility] Vitamin B12 Vitamin B12 2021-02-15 [facility] (Cyanocobalamin) (Cyanocobalamin) 08:57:00 [facility] Vitamin B12 Vitamin B12 2021-02-15 Completed [facility] (Cyanocobalamin) (Cyanocobalamin) 08:57:00 [facility] Vitamin B12 Vitamin B12 2021-02-15 Completed [facility] (Cyanocobalamin) (Cyanocobalamin) 08:57:00 [facility] Vitamin B12 Vitamin B12 2020-12-21 Completed [facility] (Cyanocobalamin) (Cyanocobalamin) 14:20:00 [facility] Vitamin B12 Vitamin B12 2020-12-21 Completed [facility] (Cyanocobalamin) (Cyanocobalamin) 14:20:00 [facility] Vitamin B12 Vitamin B12 2020-12-21 Completed [facility] (Cyanocobalamin) (Cyanocobalamin) 14:20:00 [facility] Vitamin B12 Vitamin B12 2020-12-21 Completed [facility] (Cyanocobalamin) (Cyanocobalamin) 14:20:00 [facility] Vitamin B12 Vitamin B12 2020-12-21 Completed [facility] (Cyanocobalamin) (Cyanocobalamin) 14:20:00 [facility] Vitamin B12 Vitamin B12 2020-12-21 Completed [facility] (Cyanocobalamin) (Cyanocobalamin) 14:20:00 [facility] Vitamin B12 Vitamin B12 2020-12-21 Completed [facility] (Cyanocobalamin) (Cyanocobalamin) 14:20:00 [facility] Vitamin B12 Vitamin B12 2020-12-21 [facility] (Cyanocobalamin) (Cyanocobalamin) 14:20:00 [facility] Vitamin B12 Vitamin B12 2020-12-21 [facility]pleted [facility] (Cyanocobalamin) (Cyanocobalamin) 14:20:00 [facility] Vitamin B12 Vitamin B12 2020-12-21 Completed [facility] (Cyanocobalamin) (Cyanocobalamin) 14:20:00 [facility] Vitamin B12 Vitamin B12 2020-12-21 Completed [facility] (Cyanocobalamin) (Cyanocobalamin) 14:20:00 [facility] Vitamin B12 Vitamin B12 2020-12-21 Completed [facility] (Cyanocobalamin) (Cyanocobalamin) 14:20:00 [facility] Vitamin B12 Vitamin B12 2020-12-21 Completed [facility] (Cyanocobalamin) (Cyanocobalamin) 14:20:00 [facility] Vitamin B12 Vitamin B12 2020-12-21 Completed [facility] (Cyanocobalamin) (Cyanocobalamin) 14:20:00 [facility] Vitamin B12 Vitamin B12 2020-12-21 Completed [facility] (Cyanocobalamin) (Cyanocobalamin) 14:20:00 [facility] Vitamin B12 Vitamin B12 2020-12-05 Completed [facility] (Cyanocobalamin) (Cyanocobalamin) 10:29:00 [facility] Vitamin B12 Vitamin B12 2020-12-05 Completed [facility] (Cyanocobalamin) (Cyanocobalamin) 10:29:00 [facility] Vitamin B12 Vitamin B12 2020-12-05 Completed [facility] (Cyanocobalamin) (Cyanocobalamin) 10:29:00 [facility] Vitamin B12 Vitamin B12 2020-12-05 Completed [facility] (Cyanocobalamin) (Cyanocobalamin) 10:29:00 [facility] Vitamin B12 Vitamin B12 2020-12-05 Completed [facility] (Cyanocobalamin) (Cyanocobalamin) 10:29:00 [facility] Vitamin B12 Vitamin B12 2020-12-05 Completed [facility] (Cyanocobalamin) (Cyanocobalamin) 10:29:00 [facility] Vitamin B12 Vitamin B12 2020-12-05 Completed [facility] (Cyanocobalamin) (Cyanocobalamin) 10:29:00 [facility] Vitamin B12 Vitamin B12 2020-12-05 Completed [facility] (Cyanocobalamin) (Cyanocobalamin) 10:29:00 [facility] Vitamin B12 Vitamin B12 2020-12-05 Completed [facility] (Cyanocobalamin) (Cyanocobalamin) 10:29:00 [facility] Vitamin B12 Vitamin B12 2020-12-05 Completed [facility] (Cyanocobalamin) (Cyanocobalamin) 10:29:00 [facility] Vitamin B12 Vitamin B12 2020-12-05 Completed [facility] (Cyanocobalamin) (Cyanocobalamin) 10:29:00 [facility] Vitamin B12 Vitamin B12 2020-12-05 Completed [facility] (Cyanocobalamin) (Cyanocobalamin) 10:29:00 [facility] Vitamin B12 Vitamin B12 2020-12-05 Completed [facility] (Cyanocobalamin) (Cyanocobalamin) 10:29:00 [facility] Vitamin B12 Vitamin B12 2020-12-05 Completed [facility] (Cyanocobalamin) (Cyanocobalamin) 10:29:00 [facility] Vitamin B12 Vitamin B12 2020-12-05 Completed [facility] (Cyanocobalamin) (Cyanocobalamin) 10:29:00 [facility] Vitamin B12 Vitamin B12 2020-12-05 Completed [facility] (Cyanocobalamin) (Cyanocobalamin) 10:29:00 [facility] Vitamin B12 Vitamin B12 2020-10-26 Completed [facility] (Cyanocobalamin) (Cyanocobalamin) 16:27:00 [facility] Vitamin B12 Vitamin B12 2020-10-26 Completed [facility] (Cyanocobalamin) (Cyanocobalamin) 16:27:00 [facility] Vitamin B12 Vitamin B12 2020-10-26 Completed [facility] (Cyanocobalamin) (Cyanocobalamin) 16:27:00 [facility] Vitamin B12 Vitamin B12 2020-10-26 Completed [facility] (Cyanocobalamin) (Cyanocobalamin) 16:27:00 [facility] Vitamin B12 Vitamin B12 2020-10-26 Completed [facility] (Cyanocobalamin) (Cyanocobalamin) 16:27:00 [facility] Vitamin B12 Vitamin B12 2020-10-26 Completed [facility] (Cyanocobalamin) (Cyanocobalamin) 16:27:00 [facility] Vitamin B12 Vitamin B12 2020-10-26 Completed [facility] (Cyanocobalamin) (Cyanocobalamin) 16:27:00 [facility] Vitamin B12 Vitamin B12 2020-10-26 Completed [facility] (Cyanocobalamin) (Cyanocobalamin) 16:27:00 [facility] Vitamin B12 Vitamin B12 2020-10-26 Completed [facility] (Cyanocobalamin) (Cyanocobalamin) 16:27:00 [facility] Vitamin B12 Vitamin B12 2020-10-26 Completed [facility] (Cyanocobalamin) (Cyanocobalamin) 16:27:00 [facility] Vitamin B12 Vitamin B12 2020-10-26 Completed [facility] (Cyanocobalamin) (Cyanocobalamin) 16:27:00 [facility] Vitamin B12 Vitamin B12 2020-10-26 Completed [facility] (Cyanocobalamin) (Cyanocobalamin) 16:27:00 [facility] Vitamin B12 Vitamin B12 2020-10-26 Completed [facility] (Cyanocobalamin) (Cyanocobalamin) 16:27:00 [facility] Vitamin B12 Vitamin B12 2020-10-26 Completed [facility] (Cyanocobalamin) (Cyanocobalamin) 16:27:00 [facility] Vitamin B12 Vitamin B12 2020-10-26 Completed [facility] (Cyanocobalamin) (Cyanocobalamin) 16:27:00 [facility] Vitamin B12 Vitamin B12 2020-10-26 Completed [facility] (Cyanocobalamin) (Cyanocobalamin) 16:27:00 [facility] Vitamin B12 Vitamin B12 2020-10-26 Completed [facility] (Cyanocobalamin) (Cyanocobalamin) 16:27:00 [facility] Vitamin B12 Vitamin B12 2020-10-26 Completed [facility] (Cyanocobalamin) (Cyanocobalamin) 16:27:00 [facility] SARS-COV-2 COVID-19 2020-09-17 Completed [facility] MODERNA VACCINE 00:00:00 [place] [facility] SARS-COV-2 COVID-19 2020-09-17 Completed [facility] MODERNA VACCINE 00:00:00 [facility] SARS-COV-2 COVID-19 2020-09-17 Completed [facility] MODERNA VACCINE 00:00:00 [place] [facility] SARS-COV-2 COVID-19 2020-09-17 Completed [facility] of MODERNA VACCINE 00:00:00 [facility] SARS-COV-2 COVID-19 2020-09-17 Completed [facility] MODERNA VACCINE 00:00:00 [facility] SARS-COV-2 COVID-19 2020-09-17 Completed [facility] MODERNA VACCINE 00:00:00 [facility] SARS-COV-2 COVID-19 2020-09-17 Completed [facility] MODERNA VACCINE 00:00:00 [facility] SARS-COV-2 COVID-19 2020-09-17 Completed [facility] MODERNA VACCINE 00:00:00 [facility] SARS-COV-2 COVID-19 2020-09-17 Completed [facility] MODERNA VACCINE 00:00:00 [facility] SARS-COV-2 COVID-19 2020-09-17 Completed [facility] MODERNA VACCINE 00:00:00 [facility] SARS-COV-2 COVID-19 2020-09-17 Completed [facility] MODERNA VACCINE 00:00:00 [facility] SARS-COV-2 COVID-19 2020-09-17 Completed [facility] MODERNA VACCINE 00:00:00 [facility] SARS-COV-2 COVID-19 2020-09-17 Completed Unive [...] [facility] of MODERNA 12+ YRS 00:00:00 [place] [facility] SARS-COV-2 COVID-19 2020-09-17 Completed [facility] MODERNA 12+ YRS 00:00:00 [place] [facility] SARS-COV-2 COVID-19 2020-09-17 Completed [facility] MODERNA 12+ YRS 00:00:00 [place] [facility] SARS-COV-2 COVID-19 2020-09-17 Completed [facility] MODERNA 12+ YRS 00:00:00 [place] [facility] SARS-COV-2 COVID-19 2020-09-17 Completed [facility] MODERNA 12+ YRS 00:00:00 [place] [facility] SARS-COV-2 COVID-19 2020-09-17 Completed [facility] MODERNA 12+ YRS 00:00:00 [place] [facility] SARS-COV-2 COVID-19 2020-09-17 Completed [facility] MODERNA 12+ YRS 00:00:00 [place] [facility] SARS-COV-2 COVID-19 2020-09-17 Completed [facility] MODERNA 12+ YRS 00:00:00 [place] [facility] SARS-COV-2 COVID-19 2020-09-17 Completed [facility] MODERNA 12+ YRS 00:00:00 [place] [facility] SARS-COV-2 COVID-19 2020-09-17 Completed [facility] MODERNA 12+ YRS 00:00:00 [place] [facility] SARS-COV-2 COVID-19 2020-09-17 Completed [facility] MODERNA 12+ YRS 00:00:00 [place] [facility] SARS-COV-2 COVID-19 2020-09-17 Completed [facility] MODERNA 12+ YRS 00:00:00 [place] [facility] SARS-COV-2 COVID-19 2020-09-17 Completed [facility] MODERNA 12+ YRS 00:00:00 [place] [facility] SARS-COV-2 COVID-19 2020-09-17 Completed [facility] MODERNA 12+ YRS 00:00:00 [place] [facility] SARS-COV-2 COVID-19 2020-09-17 Completed [facility] MODERNA 12+ YRS 00:00:00 [place] [facility] Vitamin B12 Vitamin B12 2020-09-12 [facility]pleted [facility] (Cyanoc[facility]amin[facility] (Cyanocobalamin) 10:56:00 [facility] Vitamin B12 Vitamin B12 2020-09-12 Completed [facility] (Cyanocobalamin) (Cyanocobalamin) 10:56:00 [facility] Vitamin B12 Vitamin B12 2020-09-12 Completed [facility] (Cyanocobalamin) (Cyanocobalamin) 10:56:00 [facility] Vitamin B12 Vitamin B12 2020-09-12 Completed [facility] (Cyanocobalamin) (Cyanocobalamin) 10:56:00 [facility] Vitamin B12 Vitamin B12 2020-09-12 Completed [facility] (Cyanocobalamin) (Cyanocobalamin) 10:56:00 [facility] Vitamin B12 Vitamin B12 2020-09-12 Completed [facility] (Cyanocobalamin) (Cyanocobalamin) 10:56:00 [facility] Vitamin B12 Vitamin B12 2020-09-12 Completed [facility] (Cyanocobalamin) (Cyanocobalamin) 10:56:00 [facility] Vitamin B12 Vitamin B12 2020-09-12 Completed [facility] (Cyanocobalamin) (Cyanocobalamin) 10:56:00 [facility] Vitamin B12 Vitamin B12 2020-09-12 Completed [facility] (Cyanocobalamin) (Cyanocobalamin) 10:56:00 [facility] Vitamin B12 Vitamin B12 2020-09-12 Completed [facility] (Cyanocobalamin) (Cyanocobalamin) 10:56:00 [facility] Vitamin B12 Vitamin B12 2020-09-12 Completed Common Spiri t - (Cyanocobalamin) (Cyanocobalamin) 10:56:00 I [facility] Vitamin B12 Vitamin B12 2020-09-12 Completed Common Spiri t - (Cyanocobalamin) (Cyanocobalamin) 10:56:00 I [facility] Vitamin B12 Vitamin B12 2020-09-12 Completed Common Spiri t - (Cyanocobalamin) (Cyanocobalamin) 10:56:00 I [facility] Vitamin B12 Vitamin B12 2020-09-12 Completed Common Spiri t - (Cyanocobalamin) (Cyanocobalamin) 10:56:00 I [facility] Vitamin B12 Vitamin B12 2020-09-12 Completed [facility] t - (Cyanocobalamin) (Cyanocobalamin) 10:56:00 [facility] Vitamin B12 Vitamin B12 2020-09-12 Completed Common Spiri t - (Cyanocobalamin) (Cyanocobalamin) 10:56:00 I [facility] Vitamin B12 Vitamin B12 2020-09-12 Completed Common Spiri t - (Cyanocobalamin) (Cyanocobalamin) 10:56:00 I [facility] Vitamin B12 Vitamin B12 2020-09-12 Completed Common Spiri t - (Cyanocobalamin) (Cyanocobalamin) 10:56:00 [facility] Vitamin B12 Vitamin B12 2020-09-12 Completed Common Spiri t - (Cyanocobalamin) (Cyanocobalamin) 10:56:00 I [facility] Vitamin B12 Vitamin B12 2020-09-12 Completed Common Spiri t - (Cyanocobalamin) (Cyanocobalamin) 10:56:00 [facility] Vitamin B12 Vitamin B12 2020-09-12 Completed Common Spiri t - (Cyanocobalamin) (Cyanocobalamin) 10:56:00 [facility] Vitamin B12 Vitamin B12 2020-09-12 Completed Common Spiri t - (Cyanocobalamin) (Cyanocobalamin) 10:56:00 [facility] SARS-COV-2 COVID-19 2020-08-20 Completed Unive rsity of MODERNA VACCINE 00:00:00 [facility] SARS-COV-2 COVID-19 2020-08-20 Completed Unive rsity of MODERNA VACCINE 00:00:00 [facility] SARS-COV-2 COVID-19 2020-08-20 Completed Unive rsity of MODERNA VACCINE 00:00:00 [facility] SARS-COV-2 COVID-19 2020-08-20 Completed Unive rsity of MODERNA VACCINE 00:00:00 [facility] ical [facility] SARS-COV-2 COVID-19 2020-08-20 Completed Unive rsity of MODERNA VACCINE 00:00:00 [facility] SARS-COV-2 COVID-19 2020-08-20 Completed Unive rsity of MODERNA VACCINE 00:00:00 [facility] SARS-COV-2 COVID-19 2020-08-20 Completed Unive rsity of MODERNA VACCINE 00:00:00 [facility] SARS-COV-2 COVID-19 2020-08-20 Completed Unive rsity of MODERNA VACCINE 00:00:00 [facility] SARS-COV-2 COVID-19 2020-08-20 Completed Unive rsity of MODERNA VACCINE 00:00:00 [facility] SARS-COV-2 COVID-19 2020-08-20 Completed Unive rsity of MODERNA VACCINE 00:00:00 [facility] SARS-COV-2 COVID-19 2020-08-20 Completed [...] Unive rsity of MODERNA 12+ YRS 00:00:00 [place] [facility] SARS-COV-2 COVID-19 2020-08-20 Completed [facility]ive rs[facility] of MODERNA 12+ YRS 00:00:00 [place] [facility] SARS-COV-2 COVID-19 2020-08-20 Completed [facility]ive rs[facility] of MODERNA 12+ YRS 00:00:00 [place] [facility] SARS-COV-2 COVID-19 2020-08-20 Completed [facility]ive rs[facility] of MODERNA 12+ YRS 00:00:00 [place] [facility] SARS-COV-2 COVID-19 2020-08-20 Completed [facility]ive rs[facility] of MODERNA 12+ YRS 00:00:00 [place] [facility] SARS-COV-2 COVID-19 2020-08-20 Completed [facility]ive rs[facility] of MODERNA 12+ YRS 00:00:00 [place] [facility] SARS-COV-2 COVID-19 2020-08-20 Completed [facility]ive rs[facility] of MODERNA 12+ YRS 00:00:00 [place] [facility] SARS-COV-2 COVID-19 2020-08-20 Completed [facility]ive rs[facility] of MODERNA 12+ YRS 00:00:00 [place] [facility] SARS-COV-2 COVID-19 2020-08-20 Completed [facility]ive rs[facility] of MODERNA 12+ YRS 00:00:00 [place] [facility] SARS-COV-2 COVID-19 2020-08-20 Completed [facility]ive rs[facility] of MODERNA 12+ YRS 00:00:00 [place] [facility] SARS-COV-2 COVID-19 2020-08-20 Completed [facility]ive rs[facility] of MODERNA 12+ YRS 00:00:00 [place] [facility] SARS-COV-2 COVID-19 2020-08-20 Completed [facility]ive rs[facility] of MODERNA 12+ YRS 00:00:00 [place] [facility] SARS-COV-2 COVID-19 2020-08-20 Completed [facility]ive rs[facility] of MODERNA 12+ YRS 00:00:00 [place] [facility] SARS-COV-2 COVID-19 2020-08-20 Completed [facility]ive rs[facility] of MODERNA 12+ YRS 00:00:00 [place] [facility] SARS-COV-2 COVID-19 2020-08-20 Completed [facility]ive rs[facility] of MODERNA 12+ YRS 00:00:00 [place] [facility] Vitamin B12 Vitamin B12 2020-08-15 Completed [facility] - (Cyanocobalamin) (Cyanocobalamin) 11:43:00 [facility] Vitamin B12 Vitamin B12 2020-08-15 Completed Common Spiri t - (Cyanocobalamin) (Cyanocobalamin) 11:43:00 [facility] Vitamin B12 Vitamin B12 2020-08-15 Completed [facility] Sp[facility] - (Cyanocobalamin) (Cyanocobalamin) 11:43:00 [facility] Vitamin B12 Vitamin B12 2020-08-15 Completed Common Spiri t - (Cyanocobalamin) (Cyanocobalamin) 11:43:00 [facility] Vitamin B12 Vitamin B12 2020-08-15 Completed Common Spiri t - (Cyanocobalamin) (Cyanocobalamin) 11:43:00 [facility] Vitamin B12 Vitamin B12 2020-08-15 Completed Common Spiri t - (Cyanocobalamin) (Cyanocobalamin) 11:43:00 [facility] Vitamin B12 Vitamin B12 2020-08-15 Completed Common Spiri t - (Cyanocobalamin) (Cyanocobalamin) 11:43:00 [facility] Vitamin B12 Vitamin B12 2020-08-15 Completed Common Spiri t - (Cyanocobalamin) (Cyanocobalamin) 11:43:00 [facility] Vitamin B12 Vitamin B12 2020-08-15 Completed Common Spiri t - (Cyanocobalamin) (Cyanocobalamin) 11:43:00 [facility] Vitamin B12 Vitamin B12 2020-08-15 Completed Common Spiri t - (Cyanocobalamin) (Cyanocobalamin) 11:43:00 [facility] Vitamin B12 Vitamin B12 2020-08-15 Completed Common Spiri t - (Cyanocobalamin) (Cyanocobalamin) 11:43:00 [facility] Vitamin B12 Vitamin B12 2020-08-15 Completed Common Spiri t - (Cyanocobalamin) (Cyanocobalamin) 11:43:00 [facility] Vitamin B12 Vitamin B12 2020-08-15 Completed Common Spiri t - (Cyanocobalamin) (Cyanocobalamin) 11:43:00 [facility] Vitamin B12 Vitamin B12 2020-08-15 Completed Common Spiri t - (Cyanocobalamin) (Cyanocobalamin) 11:43:00 [facility] Vitamin B12 Vitamin B12 2020-08-15 Completed Common Spiri t - (Cyanocobalamin) (Cyanocobalamin) 11:43:00 [facility] Vitamin B12 Vitamin B12 2020-08-15 Completed Common Spiri t - (Cyanocobalamin) (Cyanocobalamin) 11:43:00 [facility] Vitamin B12 Vitamin B12 2020-08-15 Completed Common Spiri t - (Cyanocobalamin) (Cyanocobalamin) 11:43:00 [facility] Vitamin B12 Vitamin B12 2020-08-15 Completed Common Spiri t - (Cyanocobalamin) (Cyanocobalamin) 11:43:00 [facility] Vitamin B12 Vitamin B12 2020-08-15 Completed Common Spiri t - (Cyanocobalamin) (Cyanocobalamin) 11:43:00 [facility] Vitamin B12 Vitamin B12 2020-08-15 Completed Common Spiri t - (Cyanocobalamin) (Cyanocobalamin) 11:43:00 [facility] Vitamin B12 Vitamin B12 2020-08-15 Completed Common Spiri t - (Cyanocobalamin) (Cyanocobalamin) 11:43:00 [facility] Vitamin B12 Vitamin B12 2020-08-15 Completed Common Spiri t - (Cyanocobalamin) (Cyanocobalamin) 11:43:00 [facility] Vitamin B12 Vitamin B12 2020-07-31 Completed [facility] Sp[facility] - (Cyanocobalamin) (Cyanocobalamin) 15:32:00 [facility] Vitamin B12 Vitamin B12 2020-07-31 Completed Common Spiri t - (Cyanocobalamin) (Cyanocobalamin) 15:32:00 [facility] Vitamin B12 Vitamin B12 2020-07-31 Completed Common Spiri t - (Cyanocobalamin) (Cyanocobalamin) 15:32:00 [facility] Vitamin B12 Vitamin B12 2020-07-31 Completed Common Spiri t - (Cyanocobalamin) (Cyanocobalamin) 15:32:00 [facility] Vitamin B12 Vitamin B12 2020-07-31 Completed Common Spiri t - (Cyanocobalamin) (Cyanocobalamin) 15:32:00 [facility] Vitamin B12 Vitamin B12 2020-07-31 Completed Common Spiri t - (Cyanocobalamin) (Cyanocobalamin) 15:32:00 [facility] Vitamin B12 Vitamin B12 2020-07-31 Completed Common Spiri t - (Cyanocobalamin) (Cyanocobalamin) 15:32:00 [facility] Vitamin B12 Vitamin B12 2020-07-31 Completed Common Spiri t - (Cyanocobalamin) (Cyanocobalamin) 15:32:00 [facility] Vitamin B12 Vitamin B12 2020-07-31 Completed Common Spiri t - (Cyanocobalamin) (Cyanocobalamin) 15:32:00 [facility] Vitamin B12 Vitamin B12 2020-07-31 Completed Common Spiri t - (Cyanocobalamin) (Cyanocobalamin) 15:32:00 [facility] Vitamin B12 Vitamin B12 2020-07-31 Completed Common Spiri t - (Cyanocobalamin) (Cyanocobalamin) 15:32:00 [facility] Vitamin B12 Vitamin B12 2020-07-31 Completed Common Spiri t - (Cyanocobalamin) (Cyanocobalamin) 15:32:00 [facility] Vitamin B12 Vitamin B12 2020-07-31 Completed Common Spiri t - (Cyanocobalamin) (Cyanocobalamin) 15:32:00 [facility] Vitamin B12 Vitamin B12 2020-07-31 Completed Common Spiri t - (Cyanocobalamin) (Cyanocobalamin) 15:32:00 [facility] Vitamin B12 Vitamin B12 2020-07-31 Completed Common Spiri t - (Cyanocobalamin) (Cyanocobalamin) 15:32:00 [facility] Vitamin B12 Vitamin B12 2020-07-31 Completed Common Spiri t - (Cyanocobalamin) (Cyanocobalamin) 15:32:00 [facility] Vitamin B12 Vitamin B12 2020-07-31 Completed Common Spiri t - (Cyanocobalamin) (Cyanocobalamin) 15:32:00 [facility] Vitamin B12 Vitamin B12 2020-07-31 Completed Common Spiri t - (Cyanocobalamin) (Cyanocobalamin) 15:32:00 [facility] Vitamin B12 Vitamin B12 2020-07-31 Completed Common Spiri t - (Cyanocobalamin) (Cyanocobalamin) 15:32:00 [facility] Vitamin B12 Vitamin B12 2020-07-31 Completed Common Spiri t - (Cyanocobalamin) (Cyanocobalamin) 15:32:00 [facility] Vitamin B12 Vitamin B12 2020-07-31 Completed Common Spiri t - (Cyanocobalamin) (Cyanocobalamin) 15:32:00 [facility] Vitamin B12 Vitamin B12 2020-07-31 Completed Common Spiri t - (Cyanocobalamin) (Cyanocobalamin) 15:32:00 [facility] Vitamin B12 Vitamin B12 2020-05-16 Completed Common Spiri t - (Cyanocobalamin) (Cyanocobalamin) 15:06:00 [facility] Vitamin B12 Vitamin B12 2020-05-16 Completed [facility] Sp[facility] - (Cyanocobalamin) (Cyanocobalamin) 15:06:00 [facility] Vitamin B12 Vitamin B12 2020-05-16 Completed Common Spiri t - (Cyanocobalamin) (Cyanocobalamin) 15:06:00 [facility] Vitamin B12 Vitamin B12 2020-05-16 Completed [facility] Sp[facility] - (Cyanocobalamin) (Cyanocobalamin) 15:06:00 [facility] Vitamin B12 Vitamin B12 2020-05-16 Completed [facility] Spiri t - (Cyanocobalamin) (Cyanocobalamin) 15:06:00 [facility] Vitamin B12 Vitamin B12 2020-05-16 Completed Common Spiri t - (Cyanocobalamin) (Cyanocobalamin) 15:06:00 [facility] Vitamin B12 Vitamin B12 2020-05-16 Completed Common Spiri t - (Cyanocobalamin) (Cyanocobalamin) 15:06:00 [facility] Vitamin B12 Vitamin B12 2020-05-16 Completed [facility] Spiri t - (Cyanocobalamin) (Cyanocobalamin) 15:06:00 [facility] Vitamin B12 Vitamin B12 2020-05-16 Completed [facility] Sp[facility] - (Cyanocobalamin) (Cyanocobalamin) 15:06:00 [facility] Vitamin B12 Vitamin B12 2020-05-16 Completed Common Spiri t - (Cyanocobalamin) (Cyanocobalamin) 15:06:00 [facility] Vitamin B12 Vitamin B12 2020-05-16 Completed Common Spiri t - (Cyanocobalamin) (Cyanocobalamin) 15:06:00 [facility] Vitamin B12 Vitamin B12 2020-05-16 Completed Common Spiri t - (Cyanocobalamin) (Cyanocobalamin) 15:06:00 [facility] Vitamin B12 Vitamin B12 2020-05-16 Completed Common Spiri t - (Cyanocobalamin) (Cyanocobalamin) 15:06:00 [facility] Vitamin B12 Vitamin B12 2020-05-16 Completed Common Spiri t - (Cyanocobalamin) (Cyanocobalamin) 15:06:00 [facility] Vitamin B12 Vitamin B12 2020-05-16 Completed Common Spiri t - (Cyanocobalamin) (Cyanocobalamin) 15:06:00 [facility] Vitamin B12 Vitamin B12 2020-05-16 Completed Common Spiri t - (Cyanocobalamin) (Cyanocobalamin) 15:06:00 [facility] Vitamin B12 Vitamin B12 2020-05-16 Completed Common Spiri t - (Cyanocobalamin) (Cyanocobalamin) 15:06:00 [facility] Vitamin B12 Vitamin B12 2020-05-16 Completed Common Spiri t - (Cyanocobalamin) (Cyanocobalamin) 15:06:00 [facility] Vitamin B12 Vitamin B12 2020-05-16 Completed Common Spiri t - (Cyanocobalamin) (Cyanocobalamin) 15:06:00 [facility] Vitamin B12 Vitamin B12 2020-05-16 Completed Common Spiri t - (Cyanocobalamin) (Cyanocobalamin) 15:06:00 [facility] Vitamin B12 Vitamin B12 2020-05-16 Completed Common Spiri t - (Cyanocobalamin) (Cyanocobalamin) 15:06:00 [facility] Vitamin B12 Vitamin B12 2020-05-16 Completed Common Spiri t - (Cyanocobalamin) (Cyanocobalamin) 15:06:00 [facility] Vitamin B12 Vitamin B12 2020-05-16 Completed Common Spiri t - (Cyanocobalamin) (Cyanocobalamin) 15:06:00 [facility] Vitamin B12 Vitamin B12 2020-05-16 Completed Common Spiri t - (Cyanocobalamin) (Cyanocobalamin) 15:06:00 [facility] Vitamin B12 Vitamin B12 2020-05-16 Completed Common Spiri t - (Cyanocobalamin) (Cyanocobalamin) 15:06:00 [facility] Vitamin B12 Vitamin B12 2020-05-16 Completed Common Spiri t - (Cyanocobalamin) (Cyanocobalamin) 15:06:00 [facility] Vitamin B12 Vitamin B12 2020-05-16 Completed Common Spiri t - (Cyanocobalamin) (Cyanocobalamin) 15:06:00 [facility] Vitamin B12 Vitamin B12 2020-04-27 Completed Common Spiri t - (Cyanocobalamin) (Cyanocobalamin) 15:49:00 [facility] Vitamin B12 Vitamin B12 2020-04-27 Completed Common Spiri t - (Cyanocobalamin) (Cyanocobalamin) 15:49:00 [facility] Vitamin B12 Vitamin B12 2020-04-27 Completed Common Spiri t - (Cyanocobalamin) (Cyanocobalamin) 15:49:00 [facility] Vitamin B12 Vitamin B12 2020-04-27 Completed Common Spiri t - (Cyanocobalamin) (Cyanocobalamin) 15:49:00 [facility] Vitamin B12 Vitamin B12 2020-04-27 Completed Common Spiri t - (Cyanocobalamin) (Cyanocobalamin) 15:49:00 [facility] Vitamin B12 Vitamin B12 2020-04-27 Completed Common Spiri t - (Cyanocobalamin) (Cyanocobalamin) 15:49:00 [facility] Vitamin B12 Vitamin B12 2020-04-27 Completed Common Spiri t - (Cyanocobalamin) (Cyanocobalamin) 15:49:00 [facility] Vitamin B12 Vitamin B12 2020-04-27 Completed Common Spiri t - (Cyanocobalamin) (Cyanocobalamin) 15:49:00 [facility] Vitamin B12 Vitamin B12 2020-04-27 Completed Common Spiri t - (Cyanocobalamin) (Cyanocobalamin) 15:49:00 [facility] Vitamin B12 Vitamin B12 2020-04-27 Completed Common Spiri t - (Cyanocobalamin) (Cyanocobalamin) 15:49:00 [facility] Vitamin B12 Vitamin B12 2020-04-27 Completed Common Spiri t - (Cyanocobalamin) (Cyanocobalamin) 15:49:00 [facility] Vitamin B12 Vitamin B12 2020-04-27 Completed Common Spiri t - (Cyanocobalamin) (Cyanocobalamin) 15:49:00 [facility] Vitamin B12 Vitamin B12 2020-04-27 Completed Common Spiri t - (Cyanocobalamin) (Cyanocobalamin) 15:49:00 [facility] Vitamin B12 Vitamin B12 2020-04-27 Completed Common Spiri t - (Cyanocobalamin) (Cyanocobalamin) 15:49:00 [facility] Vitamin B12 Vitamin B12 2020-04-27 Completed Common Spiri t - (Cyanocobalamin) (Cyanocobalamin) 15:49:00 [facility] Vitamin B12 Vitamin B12 2020-04-27 Completed Common Spiri t - (Cyanocobalamin) (Cyanocobalamin) 15:49:00 [facility] Vitamin B12 Vitamin B12 2020-04-27 Completed [facility] Spiri [facility] - (Cyanocobalamin) (Cyanocobalamin) 15:49:00 [facility] Vitamin B12 Vitamin B12 2020-04-27 Completed Common Spiri t - (Cyanocobalamin) (Cyanocobalamin) 15:49:00 [facility] Vitamin B12 Vitamin B12 2020-04-27 Completed [facility] Spiri t - (Cyanocobalamin) (Cyanocobalamin) 15:49:00 [facility] Vitamin B12 Vitamin B12 2020-04-27 Completed [facility] Spiri t - (Cyanocobalamin) (Cyanocobalamin) 15:49:00 [facility] Vitamin B12 Vitamin B12 2020-04-27 Completed [facility] Spiri t - (Cyanocobalamin) (Cyanocobalamin) 15:49:00 [facility] Vitamin B12 Vitamin B12 2020-04-27 Completed Common Spiri t - (Cyanocobalamin) (Cyanocobalamin) 15:49:00 [facility] Vitamin B12 Vitamin B12 2020-04-27 Completed Common Spiri t - (Cyanocobalamin) (Cyanocobalamin) 15:49:00 [facility] Vitamin B12 Vitamin B12 2020-04-27 Completed Common Spiri t - (Cyanocobalamin) (Cyanocobalamin) 15:49:00 [facility] Vitamin B12 Vitamin B12 2020-04-27 Completed Common Spiri t - (Cyanocobalamin) (Cyanocobalamin) 15:49:00 [facility] Vitamin B12 Vitamin B12 2020-04-27 Completed Common Spiri t - (Cyanocobalamin) (Cyanocobalamin) 15:49:00 [facility] Vitamin B12 Vitamin B12 2020-04-27 Completed Common Spiri t - (Cyanocobalamin) (Cyanocobalamin) 15:49:00 [facility] Vitamin B12 Vitamin B12 2020-04-27 Completed Common Spiri t - (Cyanocobalamin) (Cyanocobalamin) 15:49:00 [facility] Vitamin B12 Vitamin B12 2020-04-13 Completed Common Spiri t - (Cyanocobalamin) (Cyanocobalamin) 14:29:00 [facility] Vitamin B12 Vitamin B12 2020-04-13 Completed Common Spiri t - (Cyanocobalamin) (Cyanocobalamin) 14:29:00 [facility] Vitamin B12 Vitamin B12 2020-04-13 Completed Common Spiri t - (Cyanocobalamin) (Cyanocobalamin) 14:29:00 [facility] Vitamin B12 Vitamin B12 2020-04-13 Completed [facility] - (Cyanocobalamin) (Cyanocobalamin) 14:29:00 [facility] Vitamin B12 Vitamin B12 2020-04-13 Completed Common Spiri t - (Cyanocobalamin) (Cyanocobalamin) 14:29:00 [facility] Vitamin B12 Vitamin B12 2020-04-13 Completed [facility] Spiri [facility] - (Cyanocobalamin) (Cyanocobalamin) 14:29:00 [facility] Vitamin B12 Vitamin B12 2020-04-13 Completed Common Spiri t - (Cyanocobalamin) (Cyanocobalamin) 14:29:00 [facility] Vitamin B12 Vitamin B12 2020-04-13 Completed Common Spiri [facility] - (Cyanocobalamin) (Cyanocobalamin) 14:29:00 [facility] Vitamin B12 Vitamin B12 2020-04-13 Completed Common Spiri t - (Cyanocobalamin) (Cyanocobalamin) 14:29:00 [facility] Vitamin B12 Vitamin B12 2020-04-13 Completed Common Spiri t - (Cyanocobalamin) (Cyanocobalamin) 14:29:00 [facility] Vitamin B12 Vitamin B12 2020-04-13 Completed Common Spiri t - (Cyanocobalamin) (Cyanocobalamin) 14:29:00 [facility] Vitamin B12 Vitamin B12 2020-04-13 Completed Common Spiri t - (Cyanocobalamin) (Cyanocobalamin) 14:29:00 [facility] Vitamin B12 Vitamin B12 2020-04-13 Completed Common Spiri t - (Cyanocobalamin) (Cyanocobalamin) 14:29:00 [facility] Vitamin B12 Vitamin B12 2020-04-13 Completed Common Spiri t - (Cyanocobalamin) (Cyanocobalamin) 14:29:00 [facility] Vitamin B12 Vitamin B12 2020-04-13 Completed Common Spiri t - (Cyanocobalamin) (Cyanocobalamin) 14:29:00 [facility] Vitamin B12 Vitamin B12 2020-04-13 Completed Common Spiri t - (Cyanocobalamin) (Cyanocobalamin) 14:29:00 [facility] Vitamin B12 Vitamin B12 2020-04-13 Completed Common Spiri t - (Cyanocobalamin) (Cyanocobalamin) 14:29:00 [facility] Vitamin B12 Vitamin B12 2020-04-13 Completed Common Spiri t - (Cyanocobalamin) (Cyanocobalamin) 14:29:00 [facility] Vitamin B12 Vitamin B12 2020-04-13 Completed Common Spiri t - (Cyanocobalamin) (Cyanocobalamin) 14:29:00 [facility] Vitamin B12 Vitamin B12 2020-04-13 Completed Common Spiri t - (Cyanocobalamin) (Cyanocobalamin) 14:29:00 [facility] Vitamin B12 Vitamin B12 2020-04-13 Completed Common Spiri t - (Cyanocobalamin) (Cyanocobalamin) 14:29:00 [facility] Vitamin B12 Vitamin B12 2020-04-13 Completed Common Spiri t - (Cyanocobalamin) (Cyanocobalamin) 14:29:00 [facility] Vitamin B12 Vitamin B12 2020-04-13 Completed Common Spiri t - (Cyanocobalamin) (Cyanocobalamin) 14:29:00 [facility] Vitamin B12 Vitamin B12 2020-04-13 Completed Common Spiri t - (Cyanocobalamin) (Cyanocobalamin) 14:29:00 [facility] Vitamin B12 Vitamin B12 2020-04-13 Completed Common Spiri t - (Cyanocobalamin) (Cyanocobalamin) 14:29:00 [facility] Vitamin B12 Vitamin B12 2020-04-13 Completed Common Spiri t - (Cyanocobalamin) (Cyanocobalamin) 14:29:00 [facility] Vitamin B12 Vitamin B12 2020-04-13 Completed Common Spiri t - (Cyanocobalamin) (Cyanocobalamin) 14:29:00 [facility] Vitamin B12 Vitamin B12 2020-04-13 Completed Common Spiri t - (Cyanocobalamin) (Cyanocobalamin) 14:29:00 [facility] Vitamin B12 Vitamin B12 2020-04-13 Completed Common Spiri t - (Cyanocobalamin) (Cyanocobalamin) 14:29:00 [facility] Vitamin B12 Vitamin B12 2020-04-13 Completed Common Spiri t - (Cyanocobalamin) (Cyanocobalamin) 14:29:00 [facility] Vitamin B12 Vitamin B12 2020-03-30 Completed Common Spiri t - (Cyanocobalamin) (Cyanocobalamin) 11:47:00 [facility] Vitamin B12 Vitamin B12 2020-03-30 Completed Common Spiri t - (Cyanocobalamin) (Cyanocobalamin) 11:47:00 [facility] Vitamin B12 Vitamin B12 2020-03-30 Completed Common Spiri t - (Cyanocobalamin) (Cyanocobalamin) 11:47:00 [facility] Vitamin B12 Vitamin B12 2020-03-30 Completed Common Spiri t - (Cyanocobalamin) (Cyanocobalamin) 11:47:00 [facility] Vitamin B12 Vitamin B12 2020-03-30 Completed Common Spiri t - (Cyanocobalamin) (Cyanocobalamin) 11:47:00 [facility] Vitamin B12 Vitamin B12 2020-03-30 Completed Common Spiri t - (Cyanocobalamin) (Cyanocobalamin) 11:47:00 [facility] Vitamin B12 Vitamin B12 2020-03-30 Completed Common Spiri t - (Cyanocobalamin) (Cyanocobalamin) 11:47:00 [facility] Vitamin B12 Vitamin B12 2020-03-30 Completed Common Spiri t - (Cyanocobalamin) (Cyanocobalamin) 11:47:00 [facility] Vitamin B12 Vitamin B12 2020-03-30 Completed Common Spiri t - (Cyanocobalamin) (Cyanocobalamin) 11:47:00 [facility] Vitamin B12 Vitamin B12 2020-03-30 Completed Common Spiri t - (Cyanocobalamin) (Cyanocobalamin) 11:47:00 [facility] Vitamin B12 Vitamin B12 2020-03-30 Completed Common Spiri t - (Cyanocobalamin) (Cyanocobalamin) 11:47:00 [facility] Vitamin B12 Vitamin B12 2020-03-30 Completed Common Spiri t - (Cyanocobalamin) (Cyanocobalamin) 11:47:00 [facility] Vitamin B12 Vitamin B12 2020-03-30 Completed Common Spiri t - (Cyanocobalamin) (Cyanocobalamin) 11:47:00 [facility] Vitamin B12 Vitamin B12 2020-03-30 Completed Common Spiri t - (Cyanocobalamin) (Cyanocobalamin) 11:47:00 [facility] Vitamin B12 Vitamin B12 2020-03-30 Completed Common Spiri t - (Cyanocobalamin) (Cyanocobalamin) 11:47:00 [facility] Vitamin B12 Vitamin B12 2020-03-30 Completed Common Spiri t - (Cyanocobalamin) (Cyanocobalamin) 11:47:00 [facility] Vitamin B12 Vitamin B12 2020-03-30 Completed [facility] (Cyanocobalamin) (Cyanocobalamin) 11:47:00 I [facility] Vitamin B12 Vitamin B12 2020-03-30 Completed [facility] (Cyanocobalamin) (Cyanocobalamin) 11:47:00 I [facility] Vitamin B12 Vitamin B12 2020-03-30 Completed [facility] (Cyanocobalamin) (Cyanocobalamin) 11:47:00 [facility] Vitamin B12 Vitamin B12 2020-03-30 Completed [facility] (Cyanocobalamin) (Cyanocobalamin) 11:47:00 [facility] Vitamin B12 Vitamin B12 2020-03-30 Completed [facility] (Cyanocobalamin) (Cyanocobalamin) 11:47:00 [facility] Vitamin B12 Vitamin B12 2020-03-30 Completed [facility] (Cyanocobalamin) (Cyanocobalamin) 11:47:00 [facility] Vitamin B12 Vitamin B12 2020-03-30 Completed [facility] (Cyanocobalamin) (Cyanocobalamin) 11:47:00 [facility] Vitamin B12 Vitamin B12 2020-03-30 Completed [facility] (Cyanocobalamin) (Cyanocobalamin) 11:47:00 [facility] Vitamin B12 Vitamin B12 2020-03-30 Completed [facility] (Cyanocobalamin) (Cyanocobalamin) 11:47:00 [facility] Vitamin B12 Vitamin B12 2020-03-30 Completed [facility] (Cyanocobalamin) (Cyanocobalamin) 11:47:00 [facility] Vitamin B12 Vitamin B12 2020-03-30 Completed [facility] (Cyanocobalamin) (Cyanocobalamin) 11:47:00 [facility] Vitamin B12 Vitamin B12 2020-03-30 Completed [facility] (Cyanocobalamin) (Cyanocobalamin) 11:47:00 [facility] Vitamin B12 Vitamin B12 2020-03-30 Completed [facility] (Cyanocobalamin) (Cyanocobalamin) 11:47:00 [facility] Vitamin B12 Vitamin B12 2020-03-30 Completed [facility] (Cyanocobalamin) (Cyanocobalamin) 11:47:00 [facility] Vitamin B12 Vitamin B12 2020-03-30 Completed [facility] (Cyanocobalamin) (Cyanocobalamin) 11:47:00 [facility] Vitamin B12 Vitamin B12 2020-03-30 Completed [facility] (Cyanocobalamin) (Cyanocobalamin) 11:47:00 [facility] Vitamin B12 Vitamin B12 2020-03-16 Completed [facility] (Cyanocobalamin) (Cyanocobalamin) 16:44:00 [facility] Vitamin B12 Vitamin B12 2020-03-16 Completed [facility] (Cyanocobalamin) (Cyanocobalamin) 16:44:00 [facility] Vitamin B12 Vitamin B12 2020-03-16 Completed [facility] (Cyanocobalamin) (Cyanocobalamin) 16:44:00 [facility] Vitamin B12 Vitamin B12 2020-03-16 Completed [facility] (Cyanocobalamin) (Cyanocobalamin) 16:44:00 [facility] Vitamin B12 Vitamin B12 2020-03-16 Completed [facility] (Cyanocobalamin) (Cyanocobalamin) 16:44:00 [facility] Vitamin B12 Vitamin B12 2020-03-16 Completed [facility] (Cyanocobalamin) (Cyanocobalamin) 16:44:00 [facility] Vitamin B12 Vitamin B12 2020-03-16 Completed [facility] (Cyanocobalamin) (Cyanocobalamin) 16:44:00 [facility] Vitamin B12 Vitamin B12 2020-03-16 Completed [facility] (Cyanocobalamin) (Cyanocobalamin) 16:44:00 [facility] Vitamin B12 Vitamin B12 2020-03-16 Completed [facility] (Cyanocobalamin) (Cyanocobalamin) 16:44:00 [facility] Vitamin B12 Vitamin B12 2020-03-16 Completed [facility] (Cyanocobalamin) (Cyanocobalamin) 16:44:00 [facility] Vitamin B12 Vitamin B12 2020-03-16 Completed [facility] (Cyanocobalamin) (Cyanocobalamin) 16:44:00 [facility] Vitamin B12 Vitamin B12 2020-03-16 Completed [facility] (Cyanocobalamin) (Cyanocobalamin) 16:44:00 [facility] Vitamin B12 Vitamin B12 2020-03-16 Completed [facility] (Cyanocobalamin) (Cyanocobalamin) 16:44:00 [facility] Vitamin B12 Vitamin B12 2020-03-16 Completed [facility] (Cyanocobalamin) (Cyanocobalamin) 16:44:00 [facility] Vitamin B12 Vitamin B12 2020-03-16 Completed [facility] (Cyanocobalamin) (Cyanocobalamin) 16:44:00 [facility] Vitamin B12 Vitamin B12 2020-03-16 Completed [facility] (Cyanocobalamin) (Cyanocobalamin) 16:44:00 [facility] Vitamin B12 Vitamin B12 2020-03-16 Completed [facility] (Cyanocobalamin) (Cyanocobalamin) 16:44:00 [facility] Vitamin B12 Vitamin B12 2020-03-16 Completed [facility] (Cyanocobalamin) (Cyanocobalamin) 16:44:00 [facility] Vitamin B12 Vitamin B12 2020-03-16 Completed [facility] (Cyanocobalamin) (Cyanocobalamin) 16:44:00 [facility] Vitamin B12 Vitamin B12 2020-03-16 Completed [facility] (Cyanocobalamin) (Cyanocobalamin) 16:44:00 [facility] Vitamin B12 Vitamin B12 2020-03-16 Completed [facility] (Cyanocobalamin) (Cyanocobalamin) 16:44:00 [facility] Vitamin B12 Vitamin B12 2020-03-16 Completed [facility] (Cyanocobalamin) (Cyanocobalamin) 16:44:00 [facility] Vitamin B12 Vitamin B12 2020-03-16 Completed [facility] (Cyanocobalamin) (Cyanocobalamin) 16:44:00 [facility] Vitamin B12 Vitamin B12 2020-03-16 Completed [facility] (Cyanocobalamin) (Cyanocobalamin) 16:44:00 [facility] Vitamin B12 Vitamin B12 2020-03-16 Completed [facility] (Cyanocobalamin) (Cyanocobalamin) 16:44:00 [facility] Vitamin B12 Vitamin B12 2020-03-16 Completed [facility] (Cyanocobalamin) (Cyanocobalamin) 16:44:00 [facility] Vitamin B12 Vitamin B12 2020-03-16 Completed [facility] (Cyanocobalamin) (Cyanocobalamin) 16:44:00 [facility] Vitamin B12 Vitamin B12 2020-03-16 Completed [facility] (Cyanocobalamin) (Cyanocobalamin) 16:44:00 [facility] Vitamin B12 Vitamin B12 2020-03-16 Completed [facility] (Cyanocobalamin) (Cyanocobalamin) 16:44:00 [facility] Vitamin B12 Vitamin B12 2020-03-16 Completed [facility] (Cyanocobalamin) (Cyanocobalamin) 16:44:00 [facility] Vitamin B12 Vitamin B12 2020-03-16 Completed [facility] (Cyanocobalamin) (Cyanocobalamin) 16:44:00 [facility] Vitamin B12 Vitamin B12 2020-03-16 Completed [facility] (Cyanocobalamin) (Cyanocobalamin) 16:44:00 [facility] Vitamin B12 Vitamin B12 2020-03-16 Completed [facility] (Cyanocobalamin) (Cyanocobalamin) 16:44:00 [facility] Vitamin B12 Vitamin B12 2020-03-16 Completed [facility] (Cyanocobalamin) (Cyanocobalamin) 16:44:00 [facility] Vitamin B12 Vitamin B12 2020-03-16 Completed [facility] (Cyanocobalamin) (Cyanocobalamin) 16:44:00 [facility] Kenalog Kenalog 2019-08-03 Completed [facility] (Triamcinolone) (Triamcinolone) 15:15:00 [facility] Kenalog Kenalog 2019-08-03 Completed [facility] (Triamcinolone) (Triamcinolone) 15:15:00 [facility] Kenalog Kenalog 2019-08-03 Completed [facility] (Triamcinolone) (Triamcinolone) 15:15:00 [facility] Kenalog Kenalog 2019-08-03 Completed [facility] (Triamcinolone) (Triamcinolone) 15:15:00 [facility] Com[facility] (Triamcinolone) (Triamcinolone) 15:15:00 [facility] 2019-08-03 Completed [facility] (Triamcinolone) (Triamcinolone) 15:15:00 [facility] 2019-08-03 Com[facility] (Triamcinolone) (Triamcinolone) 15:15:00 [facility] Kenalog Kenalog 2019-08-03 Completed [facility] (Triamcinolone) (Triamcinolone) 15:15:00 [facility] 2019-08-03 Completed [facility] (Triamcinolone) (Triamcinolone) 15:15:00 [facility] Kenalog 2019-08-03 Completed [facility] (Triamcinolone) (Triamcinolone) 15:15:00 [facility] Kenalog 2019-08-03 Completed [facility] (Triamcinolone) (Triamcinolone) 15:15:00 [facility] Kenalog Kenalog 2019-08-03 Completed [facility] (Triamcinolone) (Triamcinolone) 15:15:00 [facility] Kenalog Kenalog 2019-08-03 Completed [facility] (Triamcinolone) (Triamcinolone) 15:15:00 [facility] 2019-08-03 Completed [facility] (Triamcinolone) (Triamcinolone) 15:15:00 [facility] 2019-08-03 Completed [facility] (Triamcinolone) (Triamcinolone) 15:15:00 [facility] 2019-08-03 Completed [facility] (Triamcinolone) (Triamcinolone) 15:15:00 [facility] 2019-08-03 Completed [facility] (Triamcinolone) (Triamcinolone) 15:15:00 [facility] 2019-08-03 Completed [facility] (Triamcinolone) (Triamcinolone) 15:15:00 [facility] 2019-08-03 Completed [facility] (Triamcinolone) (Triamcinolone) 15:15:00 [facility] 2019-08-03 Completed [facility] (Triamcinolone) (Triamcinolone) 15:15:00 [facility] 2019-08-03 Completed [facility] (Triamcinolone) (Triamcinolone) 15:15:00 [facility] 2019-08-03 Completed [facility] (Triamcinolone) (Triamcinolone) 15:15:00 [facility] 2019-08-03 Completed [facility] (Triamcinolone) (Triamcinolone) 15:15:00 [facility] 2019-08-03 Completed [facility] (Triamcinolone) (Triamcinolone) 15:15:00 [facility] 2019-08-03 Completed [facility] (Triamcinolone) (Triamcinolone) 15:15:00 [facility] 2019-08-03 Completed [facility] (Triamcinolone) (Triamcinolone) 15:15:00 [facility] 2019-08-03 Completed [facility] (Triamcinolone) (Triamcinolone) 15:15:00 [facility] 2019-08-03 Completed [facility] (Triamcinolone) (Triamcinolone) 15:15:00 [facility] 2019-08-03 Completed [facility] (Triamcinolone) (Triamcinolone) 15:15:00 [facility] 2019-08-03 Completed [facility] (Triamcinolone) (Triamcinolone) 15:15:00 [facility] 2019-08-03 Completed [facility] (Triamcinolone) (Triamcinolone) 15:15:00 [facility] 2019-08-03 Completed [facility] (Triamcinolone) (Triamcinolone) 15:15:00 [facility] 2019-08-03 Completed [facility] (Triamcinolone) (Triamcinolone) 15:15:00 [facility] 2019-08-03 Completed [facility] (Triamcinolone) (Triamcinolone) 15:15:00 [facility] 2019-08-03 Completed [facility] (Triamcinolone) (Triamcinolone) 15:15:00 [facility] 2019-07-06 Completed [facility] (Triamcinolone) (Triamcinolone) 10:04:00 [facility] 2019-07-06 Completed [facility] (Triamcinolone) (Triamcinolone) 10:04:00 [facility] 2019-07-06 Completed [facility] (Triamcinolone) (Triamcinolone) 10:04:00 [facility] 2019-07-06 Completed [facility] (Triamcinolone) (Triamcinolone) 10:04:00 [facility] 2019-07-06 Completed [facility] (Triamcinolone) (Triamcinolone) 10:04:00 [facility] 2019-07-06 Completed [facility] (Triamcinolone) (Triamcinolone) 10:04:00 [facility] 2019-07-06 Completed [facility] (Triamcinolone) (Triamcinolone) 10:04:00 [facility] 2019-07-06 Completed [facility] (Triamcinolone) (Triamcinolone) 10:04:00 [facility] 2019-07-06 Completed [facility] (Triamcinolone) (Triamcinolone) 10:04:00 [facility] 2019-07-06 Completed [facility] (Triamcinolone) (Triamcinolone) 10:04:00 [facility] 2019-07-06 Completed [facility] (Triamcinolone) (Triamcinolone) 10:04:00 [facility] 2019-07-06 Completed [facility] (Triamcinolone) (Triamcinolone) 10:04:00 [facility] 2019-07-06 Completed [facility] (Triamcinolone) (Triamcinolone) 10:04:00 [facility] 2019-07-06 Completed [facility] (Triamcinolone) (Triamcinolone) 10:04:00 [facility] 2019-07-06 Completed [facility] (Triamcinolone) (Triamcinolone) 10:04:00 [facility] 2019-07-06 Completed [facility] (Triamcinolone) (Triamcinolone) 10:04:00 [facility] 2019-07-06 Completed [facility] (Triamcinolone) (Triamcinolone) 10:04:00 [facility] 2019-07-06 Completed [facility] (Triamcinolone) (Triamcinolone) 10:04:00 [facility] 2019-07-06 Completed [facility] (Triamcinolone) (Triamcinolone) 10:04:00 [facility] 2019-07-06 Completed [facility] (Triamcinolone) (Triamcinolone) 10:04:00 [facility] 2019-07-06 Completed [facility] (Triamcinolone) (Triamcinolone) 10:04:00 [facility] 2019-07-06 Completed [facility] (Triamcinolone) (Triamcinolone) 10:04:00 [facility] 2019-07-06 Completed [facility] (Triamcinolone) (Triamcinolone) 10:04:00 [facility] 2019-07-06 Completed [facility] (Triamcinolone) (Triamcinolone) 10:04:00 [facility] 2019-07-06 Completed [facility] (Triamcinolone) (Triamcinolone) 10:04:00 [facility] 2019-07-06 Completed [facility] (Triamcinolone) (Triamcinolone) 10:04:00 [facility] 2019-07-06 Completed [facility] (Triamcinolone) (Triamcinolone) 10:04:00 [facility] 2019-07-06 Completed [facility] (Triamcinolone) (Triamcinolone) 10:04:00 [facility] 2019-07-06 Completed [facility] (Triamcinolone) (Triamcinolone) 10:04:00 [facility] 2019-07-06 Completed [facility] (Triamcinolone) (Triamcinolone) 10:04:00 [facility] 2019-07-06 Completed [facility] (Triamcinolone) (Triamcinolone) 10:04:00 [facility] 2019-07-06 Completed [facility] (Triamcinolone) (Triamcinolone) 10:04:00 [facility] 2019-07-06 Completed [facility] (Triamcinolone) (Triamcinolone) 10:04:00 [facility] 2019-07-06 Completed [facility] (Triamcinolone) (Triamcinolone) 10:04:00 [facility] Haylee Leach 2019-07-06 Completed [facility] (Triamcinolone) (Triamcinolone) 10:04:00 [facility] Haylee Leach 2019-05-17 Completed [facility] (Triamcinolone) (Triamcinolone) 15:11:00 [facility] Haylee Leach 2019-05-17 Completed [facility] (Triamcinolone) (Triamcinolone) 15:11:00 [facility] Haylee Leach 2019-05-17 Completed [facility] (Triamcinolone) (Triamcinolone) 15:11:00 [facility] Haylee Leach 2019-05-17 Completed [facility] (Triamcinolone) (Triamcinolone) 15:11:00 [facility] Haylee Leach 2019-05-17 Completed [facility] (Triamcinolone) (Triamcinolone) 15:11:00 [facility] Haylee Leach 2019-05-17 Completed [facility] (Triamcinolone) (Triamcinolone) 15:11:00 [facility] Haylee Leach 2019-05-17 Completed [facility] (Triamcinolone) (Triamcinolone) 15:11:00 [facility] Haylee Leach 2019-05-17 Completed [facility] (Triamcinolone) (Triamcinolone) 15:11:00 [facility] Haylee Leach 2019-05-17 Completed [facility] (Triamcinolone) (Triamcinolone) 15:11:00 [facility] Haylee Leach 2019-05-17 Completed [facility] (Triamcinolone) (Triamcinolone) 15:11:00 [facility] Haylee Leach 2019-05-17 Completed [facility] (Triamcinolone) (Triamcinolone) 15:11:00 [facility] Haylee Leach 2019-05-17 Completed [facility] (Triamcinolone) (Triamcinolone) 15:11:00 [facility] Haylee Leach 2019-05-17 Completed [facility] (Triamcinolone) (Triamcinolone) 15:11:00 [facility] Haylee Leach 2019-05-17 Completed [facility] (Triamcinolone) (Triamcinolone) 15:11:00 [facility] Haylee Leach 2019-05-17 Completed [facility] (Triamcinolone) (Triamcinolone) 15:11:00 [facility] Haylee Leach 2019-05-17 Completed [facility] (Triamcinolone) (Triamcinolone) 15:11:00 [facility] Haylee Leach 2019-05-17 Completed [facility] (Triamcinolone) (Triamcinolone) 15:11:00 [facility] Haylee Leach 2019-05-17 Completed [facility] (Triamcinolone) (Triamcinolone) 15:11:00 [facility] Haylee Leach 2019-05-17 Completed [facility] (Triamcinolone) (Triamcinolone) 15:11:00 [facility] Haylee Leach 2019-05-17 Completed [facility] (Triamcinolone) (Triamcinolone) 15:11:00 [facility] Haylee Leach 2019-05-17 Completed [facility] (Triamcinolone) (Triamcinolone) 15:11:00 [facility] Haylee Leach 2019-05-17 Completed [facility] (Triamcinolone) (Triamcinolone) 15:11:00 [facility] Haylee Leach 2019-05-17 Completed [facility] (Triamcinolone) (Triamcinolone) 15:11:00 [facility] Haylee Leach 2019-05-17 Completed [facility] (Triamcinolone) (Triamcinolone) 15:11:00 [facility] Haylee Leach 2019-05-17 Completed [facility] (Triamcinolone) (Triamcinolone) 15:11:00 [facility] Haylee Leach 2019-05-17 Completed [facility] (Triamcinolone) (Triamcinolone) 15:11:00 [facility] Haylee Leach 2019-05-17 Completed [facility] (Triamcinolone) (Triamcinolone) 15:11:00 [facility] Haylee Leach 2019-05-17 Completed [facility] (Triamcinolone) (Triamcinolone) 15:11:00 [facility] Haylee Leach 2019-05-17 Completed [facility] (Triamcinolone) (Triamcinolone) 15:11:00 [facility] Haylee Leach 2019-05-17 Completed [facility] (Triamcinolone) (Triamcinolone) 15:11:00 [facility] Haylee Leach 2019-05-17 Completed [facility] (Triamcinolone) (Triamcinolone) 15:11:00 [facility] Haylee Leach 2019-05-17 Completed [facility] (Triamcinolone) (Triamcinolone) 15:11:00 [facility] Haylee Leach 2019-05-17 Completed [facility] (Triamcinolone) (Triamcinolone) 15:11:00 [facility] Haylee Leach 2019-05-17 Completed [facility] (Triamcinolone) (Triamcinolone) 15:11:00 [facility] Haylee Leach 2019-05-17 Completed [facility] (Triamcinolone) (Triamcinolone) 15:11:00 [facility] Haylee Leach 2018-03-25 Completed [facility] (Triamcinolone) (Triamcinolone) 10:41:00 [facility] Haylee Leach 2018-03-25 Completed [facility] (Triamcinolone) (Triamcinolone) 10:41:00 [facility] Haylee Leach 2018-03-25 Completed [facility] (Triamcinolone) (Triamcinolone) 10:41:00 [facility] Haylee Leach 2018-03-25 Completed [facility] (Triamcinolone) (Triamcinolone) 10:41:00 [facility] Haylee Leach 2018-03-25 Completed [facility] (Triamcinolone) (Triamcinolone) 10:41:00 [facility] Haylee Leach 2018-03-25 Completed [facility] (Triamcinolone) (Triamcinolone) 10:41:00 [facility] Haylee Leach 2018-03-25 Completed [facility] (Triamcinolone) (Triamcinolone) 10:41:00 [facility] Haylee Leach 2018-03-25 Completed [facility] (Triamcinolone) (Triamcinolone) 10:41:00 [facility] Haylee Leach 2018-03-25 Completed [facility] (Triamcinolone) (Triamcinolone) 10:41:00 [facility] Haylee Leach 2018-03-25 Completed [facility] (Triamcinolone) (Triamcinolone) 10:41:00 [facility] Haylee Leach 2018-03-25 Completed [facility] (Triamcinolone) (Triamcinolone) 10:41:00 [facility] Haylee Leach 2018-03-25 Completed [facility] (Triamcinolone) (Triamcinolone) 10:41:00 [facility] Haylee Leach 2018-03-25 Completed [facility] (Triamcinolone) (Triamcinolone) 10:41:00 [facility] Haylee Leach 2018-03-25 Completed [facility] (Triamcinolone) (Triamcinolone) 10:41:00 [facility] Haylee Leach 2018-03-25 Completed [facility] (Triamcinolone) (Triamcinolone) 10:41:00 [facility] Haylee Leach 2018-03-25 Completed [facility] (Triamcinolone) (Triamcinolone) 10:41:00 [facility] Haylee Leach 2018-03-25 Completed [facility] (Triamcinolone) (Triamcinolone) 10:41:00 [facility] Haylee Leach 2018-03-25 Completed [facility] (Triamcinolone) (Triamcinolone) 10:41:00 [facility] Haylee Leach 2018-03-25 Completed [facility] (Triamcinolone) (Triamcinolone) 10:41:00 [facility] Haylee Leach 2018-03-25 Completed [facility] (Triamcinolone) (Triamcinolone) 10:41:00 [facility] Haylee Leach 2018-03-25 Completed [facility] (Triamcinolone) (Triamcinolone) 10:41:00 [facility] Haylee Leach 2018-03-25 Completed [facility] (Triamcinolone) (Triamcinolone) 10:41:00 [facility] Haylee Leach 2018-03-25 Completed [facility] (Triamcinolone) (Triamcinolone) 10:41:00 [facility] Haylee Leach 2018-03-25 Completed [facility] (Triamcinolone) (Triamcinolone) 10:41:00 [facility] Haylee Leach 2018-03-25 Completed [facility] (Triamcinolone) (Triamcinolone) 10:41:00 [facility] Haylee Leach 2018-03-25 Completed [facility] (Triamcinolone) (Triamcinolone) 10:41:00 [facility] Haylee Leach 2018-03-25 Completed [facility] (Triamcinolone) (Triamcinolone) 10:41:00 [facility] Haylee Leach 2018-03-25 Completed [facility] (Triamcinolone) (Triamcinolone) 10:41:00 [facility] Haylee Leach 2018-03-25 Completed [facility] (Triamcinolone) (Triamcinolone) 10:41:00 [facility] Haylee Leach 2018-03-25 Completed [facility] (Triamcinolone) (Triamcinolone) 10:41:00 [facility] Haylee Leach 2018-03-25 Completed [facility] (Triamcinolone) (Triamcinolone) 10:41:00 [facility] Haylee Leach 2018-03-25 Completed [facility] (Triam[facility]olone) (Triamcinolone) 10:41:00 [facility] Haylee Leach 2018-03-25 Completed [facility] - (Triamcinolone) (Triamcinolone) 10:41:00 [facility] 2018-03-25 Completed [facility] - (Triamcinolone) (Triamcinolone) 10:41:00 [facility] 2018-03-25 Completed [facility] - (Triamcinolone) (Triamcinolone) 10:41:00 [facility] 2017-11-04 Completed [facility] - (Triamcinolone) (Triamcinolone) 10:43:00 [facility] 2017-11-04 Completed [facility] - (Triamcinolone) (Triamcinolone) 10:43:00 [facility] 2017-11-04 Completed [facility] - (Triamcinolone) (Triamcinolone) 10:43:00 [facility] 2017-11-04 Completed [facility] - (Triamcinolone) (Triamcinolone) 10:43:00 [facility] Haylee 2017-11-04 Completed [facility] - (Triamcinolone) (Triamcinolone) 10:43:00 [facility] 2017-11-04 Completed [facility] - (Triamcinolone) (Triamcinolone) 10:43:00 [facility] 2017-11-04 Completed [facility] - (Triamcinolone) (Triamcinolone) 10:43:00 [facility] 2017-11-04 Completed [facility] - (Triamcinolone) (Triamcinolone) 10:43:00 [facility] 2017-11-04 Completed [facility] - (Triamcinolone) (Triamcinolone) 10:43:00 [facility] 2017-11-04 Completed [facility] - (Triamcinolone) (Triamcinolone) 10:43:00 [facility] 2017-11-04 Completed [facility] - (Triamcinolone) (Triamcinolone) 10:43:00 [facility] 2017-11-04 Completed [facility] - (Triamcinolone) (Triamcinolone) 10:43:00 [facility] aHylee 2017-11-04 Completed [facility] - (Triamcinolone) (Triamcinolone) 10:43:00 [facility] 2017-11-04 Completed [facility] - (Triamcinolone) (Triamcinolone) 10:43:00 [facility] 2017-11-04 Completed [facility] - (Triamcinolone) (Triamcinolone) 10:43:00 [facility] 2017-11-04 Completed [facility] - (Triamcinolone) (Triamcinolone) 10:43:00 [facility] 2017-11-04 Completed [facility] - (Triamcinolone) (Triamcinolone) 10:43:00 [facility] 2017-11-04 Completed [facility] - (Triamcinolone) (Triamcinolone) 10:43:00 [facility] 2017-11-04 Completed [facility] - (Triamcinolone) (Triamcinolone) 10:43:00 [facility] 2017-11-04 Completed [facility] - (Triamcinolone) (Triamcinolone) 10:43:00 [facility] 2017-11-04 Completed [facility] - (Triamcinolone) (Triamcinolone) 10:43:00 [facility] 2017-11-04 Completed [facility] - (Triamcinolone) (Triamcinolone) 10:43:00 [facility] 2017-11-04 Completed [facility] - (Triamcinolone) (Triamcinolone) 10:43:00 [facility] 2017-11-04 Completed [facility] - (Triamcinolone) (Triamcinolone) 10:43:00 [facility] 2017-11-04 Completed [facility] - (Triamcinolone) (Triamcinolone) 10:43:00 [facility] 2017-11-04 Completed [facility] - (Triamcinolone) (Triamcinolone) 10:43:00 [facility] Hayele 2017-11-04 Completed [facility] - (Triamcinolone) (Triamcinolone) 10:43:00 [facility] Haylee Leach 2017-11-04 Completed [facility] - (Triamcinolone) (Triamcinolone) 10:43:00 [facility] 2017-11-04 Completed [facility] - (Triamcinolone) (Triamcinolone) 10:43:00 [facility] Haylee 2017-11-04 Completed [facility] - (Triamcinolone) (Triamcinolone) 10:43:00 [facility] Haylee 2017-11-04 Completed [facility] - (Triamcinolone) (Triamcinolone) 10:43:00 [facility] Haylee 2017-11-04 Completed [facility] - (Triamcinolone) (Triamcinolone) 10:43:00 [facility] Haylee Leach 2017-11-04 Completed [facility] - (Triamcinolone) (Triamcinolone) 10:43:00 [facility] Haylee 2017-11-04 Completed [facility] - (Triamcinolone) (Triamcinolone) 10:43:00 [facility] Haylee Leach 2017-11-04 Completed [facility] - (Triamcinolone) (Triamcinolone) 10:43:00 [facility] Influenza Virus 2007-09-22 Completed Universit y of Vaccine 00:00:00 [facility] Pneumococcal 2007-09-22 Completed University o f Polysaccharide, 00:00:00 [place] [facility] PPSV23 (PNEUMOVAX) Branch Influenza Virus 2007-09-22 Completed Universit y of Vaccine 00:00:00 [facility] Pneumococcal 2007-09-22 Completed University o f Polysaccharide, 00:00:00 [place] [facility] PPSV23 (PNEUMOVAX) Branch Influenza Virus 2007-09-22 Completed Universit y of Vaccine 00:00:00 [facility] Pneumococcal 2007-09-22 Completed University o f Polysaccharide, 00:00:00 [place] [facility] PPSV23 (PNEUMOVAX) Branch Influenza Virus 2007-09-22 Completed Universit y of Vaccine 00:00:00 [facility] Pneumococcal 2007-09-22 Completed University o f Polysaccharide, 00:00:00 [place] [facility] PPSV23 (PNEUMOVAX) Branch Influenza Virus 2007-09-22 Completed Universit y of Vaccine 00:00:00 [facility] Pneumococcal 2007-09-22 Completed University o f Polysaccharide, 00:00:00 [place] [facility] PPSV23 (PNEUMOVAX) Branch Influenza Virus 2007-09-22 Completed Universit y of Vaccine 00:00:00 [facility] Pneumococcal 2007-09-22 Completed University o f Polysaccharide, 00:00:00 [place] [facility] PPSV23 (PNEUMOVAX) Branch Influenza Virus 2007-09-22 Completed Universit y of Vaccine 00:00:00 [facility] Pneumococcal 2007-09-22 Completed University o f Polysaccharide, 00:00:00 [place] [facility] PPSV23 (PNEUMOVAX) Branch Influenza Virus 2007-09-22 Completed Universit y of Vaccine 00:00:00 [facility] Pneumococcal 2007-09-22 Completed University o f Polysaccharide, 00:00:00 [place] [facility] PPSV23 (PNEUMOVAX) Branch Influenza Virus 2007-09-22 Completed Universit y of Vaccine 00:00:00 [facility] Pneumococcal 2007-09-22 Completed University o f Polysaccharide, 00:00:00 [place] [facility] PPSV23 (PNEUMOVAX) Branch Influenza Virus 2007-09-22 Completed Universit y of Vaccine 00:00:00 [facility] Pneumococcal 2007-09-22 Completed University o f Polysaccharide, 00:00:00 [place] [facility] PPSV23 (PNEUMOVAX) Branch Influenza Virus 2007-09-22 Completed Universit y of Vaccine 00:00:00 [facility] Pneumococcal 2007-09-22 Completed University o f Polysaccharide, 00:00:00 [place] [facility] PPSV23 (PNEUMOVAX) Branch Influenza Virus 2007-09-22 Completed Universit y of Vaccine 00:00:00 [facility] Pneumococcal 2007-09-22 Completed University o f Polysaccharide, 00:00:00 [place] [facility] PPSV23 (PNEUMOVAX) Branch Influenza Virus 2007-09-22 Completed Universit y of Vaccine 00:00:00 [facility] Pneumococcal 2007-09-22 Completed University o f Polysaccharide, 00:00:00 [place] [facility] PPSV23 (PNEUMOVAX) Branch Influenza Virus 2007-09-22 Completed Universit y of Vaccine 00:00:00 [facility] Pneumococcal 2007-09-22 Completed University o f Polysaccharide, 00:00:00 [place] [facility] PPSV23 (PNEUMOVAX) Branch Influenza Virus 2007-09-22 Completed Universit y of Vaccine 00:00:00 [facility] Pneumococcal 2007-09-22 Completed University o f Polysaccharide, 00:00:00 [place] [facility] PPSV23 (PNEUMOVAX) Branch Influenza Virus 2007-09-22 Completed Universit y of Vaccine 00:00:00 [facility] Pneumococcal 2007-09-22 Completed University o f Polysaccharide, 00:00:00 [place] [facility] PPSV23 (PNEUMOVAX) Branch Influenza Virus 2007-09-22 Completed Universit y of Vaccine 00:00:00 [facility] Pneumococcal 2007-09-22 Completed University o f Polysaccharide, 00:00:00 [place] [facility] PPSV23 (PNEUMOVAX) Branch Influenza Virus 2007-09-22 Completed Universit y of Vaccine 00:00:00 [facility] Pneumococcal 2007-09-22 Completed University o f Polysaccharide, 00:00:00 [place] [facility] PPSV23 (PNEUMOVAX) Branch Influenza Virus 2007-09-22 Completed Universit y of Vaccine 00:00:00 [facility] Pneumococcal 2007-09-22 Completed University o f Polysaccharide, 00:00:00 [place] [facility] PPSV23 (PNEUMOVAX) Branch Influenza Virus 2007-09-22 Completed Universit y of Vaccine 00:00:00 [facility] Pneumococcal 2007-09-22 Completed University o f Polysaccharide, 00:00:00 [place] [facility] PPSV23 (PNEUMOVAX) Branch Influenza Virus 2007-09-22 Completed Universit y of Vaccine 00:00:00 [facility] Pneumococcal 2007-09-22 Completed University o f Polysaccharide, 00:00:00 [place] [facility] PPSV23 (PNEUMOVAX) Branch Influenza Virus 2007-09-22 Completed Universit y of Vaccine 00:00:00 [facility] Pneumococcal 2007-09-22 Completed University o f Polysaccharide, 00:00:00 [place] [facility] PPSV23 (PNEUMOVAX) Branch Influenza Virus 2007-09-22 Completed Universit y of Vaccine 00:00:00 [facility] Pneumococcal 2007-09-22 Completed University o f Polysaccharide, 00:00:00 [place] [facility] PPSV23 (PNEUMOVAX) Branch Influenza Virus 2007-09-22 Completed Universit y of Vaccine 00:00:00 [facility] Pneumococcal 2007-09-22 Completed University o f Polysaccharide, 00:00:00 [place] [facility] PPSV23 (PNEUMOVAX) Branch Influenza Virus 2007-09-22 Completed Universit y of Vaccine 00:00:00 [facility] Pneumococcal 2007-09-22 Completed University o f Polysaccharide, 00:00:00 [place] [facility] PPSV23 (PNEUMOVAX) Branch Influenza Virus 2007-09-22 Completed Universit y of Vaccine 00:00:00 [facility] Pneumococcal 2007-09-22 Completed University o f Polysaccharide, 00:00:00 [place] [facility] PPSV23 (PNEUMOVAX) Branch Influenza Virus 2007-09-22 Completed Universit y of Vaccine 00:00:00 [facility] Pneumococcal 2007-09-22 Completed University o f Polysaccharide, 00:00:00 [place] [facility] PPSV23 (PNEUMOVAX) Branch Influenza Virus 2007-09-22 Completed Universit y of Vaccine 00:00:00 [facility] Pneumococcal 2007-09-22 Completed University o f Polysaccharide, 00:00:00 [place] [facility] PPSV23 (PNEUMOVAX) Branch Influenza Virus 2007-09-22 Completed Universit y of Vaccine 00:00:00 [facility] Pneumococcal 2007-09-22 Completed University o f Polysaccharide, 00:00:00 [place] [facility] PPSV23 (PNEUMOVAX) Branch Influenza Virus 2007-09-22 Completed Universit y of Vaccine 00:00:00 [facility] Pneumococcal 2007-09-22 Completed University o f Polysaccharide, 00:00:00 [place] [facility] PPSV23 (PNEUMOVAX) Branch Influenza Virus 2007-09-22 Completed Universit y of Vaccine 00:00:00 [facility] Pneumococcal 2007-09-22 Completed University o f Polysaccharide, 00:00:00 [place] [facility] PPSV23 (PNEUMOVAX) Branch Influenza Virus 2007-09-22 Completed Universit y of Vaccine 00:00:00 [facility] Pneumococcal 2007-09-22 Completed University o f Polysaccharide, 00:00:00 [place] [facility] PPSV23 (PNEUMOVAX) Branch Influenza Virus 2007-09-22 Completed Universit y of Vaccine 00:00:00 [facility] Pneumococcal 2007-09-22 Completed [place] o f Polysaccharide, 00:00:00 [place] [facility] PPSV23 (PNEUMOVAX) Branch Influenza Virus 2007-09-[address] [facility] Pneumococcal 2007-09-22 Completed [place] o f Polysaccharide, 00:00:00 [facility] ical PPSV23 (PNEUMOVAX) [place] Vital Signs Vital Name Observation Time Observation Value Comments Source Systolic blood 2022-10-28 13:55:00 115 mm[Hg] Univer sity of pressure [facility] Diastolic blood 2022-10-28 13:55:00 60 mm[Hg] Unive rsity of pressure [facility] Heart rate 2022-10-28 13:55:00 59 /min Universi ty of [facility] Respiratory rate 2022-10-28 13:55:00 19 /min Univ ersity of [facility] Oxygen saturation in 2022-10-28 13:55:00 97 /min University of Arterial blood by [place] [facility] oximetry [facility] Body temperature 2022-10-28 12:15:00 36.39 Radha Univ ersity of [facility] Body height 2022-10-22 15:00:00 165.1 cm Universi ty of [facility] Body weight 2022-10-22 15:00:00 83.915 kg Universi ty of [facility] BMI 2022-10-22 15:00:00 30.79 kg/m2 Universi ty [facility] Systolic blood 2022-10-28 13:45:00 117 mm[Hg] Univer sity of pressure [facility] Diastolic blood 2022-10-28 13:45:00 68 mm[Hg] Unive rsity of pressure [facility] Heart rate 2022-10-28 13:45:00 60 /min Universi ty of [facility] Respiratory rate 2022-10-28 13:45:00 19 /min Univ ersity of [facility] Oxygen saturation in 2022-10-28 13:45:00 96 /min University of Arterial blood by [place] [facility] Pulse oximetry [facility] Body temperature 2022-10-28 12:15:00 36.39 Radha Univ ersity of [facility] Body height 2022-10-22 15:00:00 165.1 cm Universi ty of [facility] Body weight 2022-10-22 15:00:00 83.915 kg Universi ty of [facility] BMI 2022-10-22 15:00:00 30.79 kg/m2 [facility] ty [facility] Heart rate 2022-08-19 14:20:00 68 /min [facility]i ty [facility] [place] [facility] Respiratory rate 2022-08-19 14:20:00 30 /min Univ ersity of [facility] [place] [facility] Oxygen saturation in 2022-08-19 14:20:00 95 /min [facility] of Arterial blood by [place] [facility] Pulse oximetry [facility] Systolic blood 2022-08-19 14:19:00 117 mm[Hg] Univer sity of pressure [facility] Diastolic blood 2022-08-19 14:19:00 64 mm[Hg] Unive rsity of pressure [facility] [place] [facility] [place] Body temperature 2022-08-19 13:51:00 37.06 Radha Univ ersity of [facility] Body height 2022-08-19 12:49:00 165.1 cm [facility]i ty of [facility] [place] [facility] [place] Body weight 2022-08-19 12:49:00 82.6 kg [facility]i ty [facility] BMI 2022-08-19 12:49:00 30.30 kg/m2 [facility] Heart rate 2022-08-19 12:57:00 64 /min [facility]i ty [facility] Body temperature 2022-08-19 12:57:00 36.83 Radha Univ ers[facility] of [facility] Respiratory rate 2022-08-19 12:57:00 18 /min Univ ersity of [facility] [place] Oxygen saturation in 2022-08-19 12:57:00 99 /min University of Arterial blood by [place] [facility] P[facility]xim[facility] Systolic blood 2022-08-19 12:56:00 129 mm[Hg] Univer sity of pressure [facility] Diastolic blood 2022-08-19 12:56:00 62 mm[Hg] Unive rsity of pressure [facility] Body height 2022-08-19 12:49:00 165.1 cm [facility]i ty [facility] Body weight 2022-08-19 12:49:00 82.6 kg [facility] BMI 2022-08-19 12:49:00 30.30 kg/m2 [facility] [place] [facility] Systolic blood 2022-07-17 19:15:00 126 mm[Hg] Univer sity of pressure [facility] Diastolic blood 2022-07-17 19:15:00 77 mm[Hg] Unive rsity of [facility] Heart rate 2022-07-17 19:15:00 67 /min Universi ty [facility] Body temperature 2022-07-17 19:15:00 36.78 [facility] 2022-07-17 19:15:00 18 /min [facility] height 2022-07-17 19:15:00 165.1 cm Universi ty [facility] Body weight 2022-07-17 19:15:00 83.008 kg Universi ty [facility] BMI 2022-07-17 19:15:00 30.45 kg/m2 Universi ty [facility] height 2022-07-01 11:20:00 65 [in_i] [facility] weight 2022-07-01 11:20:00 178 [lb_av] [facility] bmi 2022-07-01 11:20:00 29.62 kg/m2 [facility] height 2022-04-29 14:50:00 65 [in_i] [facility] weight 2022-04-29 14:50:00 183.2 [lb_av] [facility] temperature 2022-04-29 14:50:00 96.5 [degF] Common [facility] bmi 2022-04-29 14:50:00 30.48 kg/m2 [facility] oximetry 2022-04-29 14:50:00 97 % [facility] respiratory rate 2022-04-29 14:50:00 17 /min Comm on [facility] blood pressure 2022-04-29 14:50:00 127 mm[Hg] Common [facility] - systolic [facility] blood pressure 2022-04-29 14:50:00 67 mm[Hg] Common [facility] - diastolic [facility] height 2022-03-27 14:00:00 65 [in_i] Common [facility] weight 2022-03-27 14:00:00 180.6 [lb_av] [facility] temperature 2022-03-27 14:00:00 97.7 [degF] Common [facility] bmi 2022-03-27 14:00:00 30.05 kg/m2 Common [facility] oximetry 2022-03-27 14:00:00 97 % [facility] respiratory rate 2022-03-27 14:00:00 17 /min [facility] on [facility] blood pressure 2022-03-27 14:00:00 132 mm[Hg] Common [facility] - systolic [facility] blood pressure 2022-03-27 14:00:00 69 mm[Hg] [facility] - diastolic [facility] height 2022-02-12 14:00:00 65 [in_i] Common [facility] weight 2022-02-12 14:00:00 180.4 [lb_av] [facility] temperature 2022-02-12 14:00:00 97.3 [degF] Common [facility] bmi 2022-02-12 14:00:00 30.02 kg/m2 [facility] oximetry 2022-02-12 14:00:00 97 % [facility] respiratory rate 2022-02-12 14:00:00 17 /min Comm on [facility] blood pressure 2022-02-12 14:00:00 138 mm[Hg] Common [facility] - systolic [facility] blood pressure 2022-02-12 14:00:00 67 mm[Hg] Common [facility] diastolic [facility] Heart rate 2022-02-04 14:03:00 63 /min [facility] Respiratory rate 2022-02-04 14:03:00 16 /min [facility] Oxygen saturation in 2022-02-04 14:03:00 97 /min University of Arterial blood by [facility] Pulse oximetry Branch Systolic blood 2022-02-04 13:54:00 114 mm[Hg] Univer sity of pressure [facility] Diastolic blood 2022-02-04 13:54:00 61 mm[Hg] Unive rsity of pressure [facility] Body temperature 2022-02-04 13:38:00 36.83 Radha Univ ersity of [facility] Body height 2022-02-04 12:07:00 165.1 cm Universi ty of [facility] Body weight 2022-02-01 17:00:00 82.555 kg [facility]i ty of [facility] [place] [facility] BMI 2022-02-01 17:00:00 30.29 kg/m2 Universi ty of [facility] Systolic blood 2022-02-04 13:48:00 112 mm[Hg] Univer sity of pressure [facility] Diastolic blood 2022-02-04 13:48:00 60 mm[Hg] Unive rsity of [facility] Heart rate 2022-02-04 13:48:00 57 /min Universi ty of [facility] [place] [facility] Respiratory rate 2022-02-04 13:48:00 16 /min Univ ersity of [facility] Oxygen saturation in 2022-02-04 13:48:00 99 /min University of Arterial blood by [facility] Pulse oximetry Branch Body temperature 2022-02-04 13:38:00 36.83 Radha [facility] ersity of [facility] Body height 2022-02-04 12:07:00 165.1 cm [facility]i ty of [facility] Body weight 2022-02-01 17:00:00 82.555 kg [facility] BMI 2022-02-01 17:00:00 30.29 kg/m2 Universi ty of [facility] height 2022-01-28 15:40:00 65 [in_i] Common [facility] weight 2022-01-28 15:40:00 181.5 [lb_av] [facility] temperature 2022-01-28 15:40:00 97.2 [degF] Common [facility] bmi 2022-01-28 15:40:00 30.2 kg/m2 [facility] - [facility] oximetry 2022-01-28 15:40:00 98 % [facility] respiratory rate 2022-01-28 15:40:00 17 /min [facility] - [facility] blood pressure 2022-01-28 15:40:00 125 mm[Hg] [facility] systolic [place] [facility] [facility] 2022-01-28 15:40:00 72 mm[Hg] [facility] Heart rate 2022-01-21 12:57:00 65 /min [facility] Respiratory rate 2022-01-21 12:57:00 29 /min [facility] Oxygen saturation in 2022-01-21 12:57:00 98 /min [facility] of Arterial blood by [place] [facility] Pulse oximetry Branch Systolic blood 2022-01-21 12:55:00 105 mm[Hg] Univer sity of pressure [facility] Diastolic blood 2022-01-21 12:55:00 74 mm[Hg] Unive rsity of [facility] Body temperature 2022-01-21 12:36:00 36.28 Radha [facility] Body height 2022-01-21 11:30:00 165.1 cm [facility] Body weight 2022-01-16 15:00:00 83.008 kg [facility] BMI 2022-01-16 15:00:00 30.45 kg/m2 [facility] Systolic blood 2022-01-21 12:45:00 110 mm[Hg] Univer sity of pressure [facility] Diastolic blood 2022-01-21 12:45:00 65 mm[Hg] Unive rsity of pressure [facility] Heart rate 2022-01-21 12:45:00 64 /min [facility] Respiratory rate 2022-01-21 12:45:00 29 /min [facility] Oxygen saturation in 2022-01-21 12:45:00 97 /min [facility] Arterial blood by [place] [facility] Pulse oximetry Branch Body temperature 2022-01-21 12:36:00 36.28 Radha [facility] Body height 2022-01-21 11:30:00 165.1 cm [facility] Body weight 2022-01-16 15:00:00 83.008 kg [facility] BMI 2022-01-16 15:00:00 30.45 kg/m2 [facility] height 2022-01-17 13:40:00 65 [in_i] [facility] weight 2022-01-17 13:40:00 186.1 [lb_av] [facility] temperature 2022-01-17 13:40:00 97.4 [degF] [facility] bmi 2022-01-17 13:40:00 30.97 kg/m2 [facility] oximetry 2022-01-17 13:40:00 96 % [facility] respiratory rate 2022-01-17 13:40:00 17 /min Comm on [facility] blood pressure 2022-01-17 13:40:00 125 mm[Hg] [facility] systolic [facility] blood pressure 2022-01-17 13:40:00 64 mm[Hg] [facility] diastolic [facility] Systolic blood 2022-01-07 13:50:00 118 mm[Hg] [facility]iver [facility]ity of [facility] Diastolic blood 2022-01-07 13:50:00 67 mm[Hg] Unive rsity of [facility] Heart rate 2022-01-07 13:50:00 70 /min [facility] Respiratory rate 2022-01-07 13:50:00 17 /min [facility] in 2022-01-07 13:50:00 99 /min [facility] Arterial blood by [facility] Pulse oximetry Branch Body temperature 2022-01-07 13:30:00 36.17 Radha [facility] ersity of [facility] Body height 2021-12-31 13:37:00 165.1 cm [facility] Body weight 2021-12-31 13:37:00 83.3 kg [facility] BMI 2021-12-31 13:37:00 30.56 kg/m2 [facility] Systolic blood 2022-01-07 13:45:00 103 mm[Hg] Univer sity of pressure [facility] Diastolic blood 2022-01-07 13:45:00 57 mm[Hg] [facility]ive rsity of [facility] Heart rate 2022-01-07 13:45:00 64 /min [facility] Respiratory rate 2022-01-07 13:45:00 17 /min [facility] Oxygen saturation in 2022-01-07 13:45:00 97 /min [facility] Arterial blood by [facility] Pulse oximetry Branch Body temperature 2022-01-07 13:30:00 36.17 Radha [facility] Body height 2021-12-31 13:37:00 165.1 cm [facility] Body weight 2021-12-31 13:37:00 83.3 kg [facility] BMI 2021-12-31 13:37:00 30.56 kg/m2 [facility] height 2022-01-03 10:00:00 65 [in_i] [facility] weight 2022-01-03 10:00:00 185 [lb_av] [facility] temperature 2022-01-03 10:00:00 98 [degF] [facility] bmi 2022-01-03 10:00:00 30.78 kg/m2 [facility] height 2021-12-10 10:40:00 65 [in_i] [facility] weight 2021-12-10 10:40:00 186.0 [lb_av] Common [facility] temperature 2021-12-10 10:40:00 98.1 [degF] [facility] bmi 2021-12-10 10:40:00 30.95 kg/m2 [facility] oximetry 2021-12-10 10:40:00 87 % Common [facility] respiratory rate 2021-12-10 10:40:00 17 /min Comm on [facility] blood pressure 2021-12-10 10:40:00 127 mm[Hg] Common [facility] - systolic [facility] blood pressure 2021-12-10 10:40:00 65 mm[Hg] Common [facility] - diastolic [facility] height 2021-11-22 09:40:00 65 [in_i] Common [facility] weight 2021-11-22 09:40:00 185.1 [lb_av] [facility] temperature 2021-11-22 09:40:00 97.7 [degF] [facility] bmi 2021-11-22 09:40:00 30.8 kg/m2 [facility] oximetry 2021-11-22 09:40:00 96 % [facility] respiratory rate 2021-11-22 09:40:00 17 /min Comm on [facility] blood pressure 2021-11-22 09:40:00 126 mm[Hg] Common [facility] - systolic [facility] blood pressure 2021-11-22 09:40:00 70 mm[Hg] [facility] diastolic [facility] height 2021-10-30 14:30:00 65 [in_i] Common [facility] weight 2021-10-30 14:30:00 191.1 [lb_av] [facility] temperature 2021-10-30 14:30:00 98.1 [degF] [facility] bmi 2021-10-30 14:30:00 31.8 kg/m2 [facility] oximetry 2021-10-30 14:30:00 96 % [facility] respiratory rate 2021-10-30 14:30:00 17 /min Comm on [facility] blood pressure 2021-10-30 14:30:00 127 mm[Hg] Common [facility] - systolic [facility] blood pressure 2021-10-30 14:30:00 60 mm[Hg] [facility] height 2021-10-17 14:15:00 65 [in_i] Common [facility] weight 2021-10-17 14:15:00 185 [lb_av] [facility] temperature 2021-10-17 14:15:00 98.4 [degF] [facility] bmi 2021-10-17 14:15:00 30.78 kg/m2 [facility] oximetry 2021-10-17 14:15:00 96 % [facility] respiratory rate 2021-10-17 14:15:00 16 /min Comm on [facility] blood pressure 2021-10-17 14:15:00 137 mm[Hg] Common [facility] - systolic [facility] blood pressure 2021-10-17 14:15:00 67 mm[Hg] Common [facility] - diastolic [facility] height 2021-09-19 10:15:00 65 [in_i] Common [facility] weight 2021-09-19 10:15:00 186.6 [lb_av] [facility] temperature 2021-09-19 10:15:00 97.3 [degF] [facility] bmi 2021-09-19 10:15:00 31.05 kg/m2 [facility] 2021-09-19 10:15:00 92 % Common [facility] respiratory rate 2021-09-19 10:15:00 16 /min Comm on [facility] blood pressure 2021-09-19 10:15:00 136 mm[Hg] Common [facility] - systolic [facility] blood pressure 2021-09-19 10:15:00 72 mm[Hg] [facility] height 2021-08-27 16:00:00 65 [in_i] [facility] weight 2021-08-27 16:00:00 183.4 [lb_av] Common [facility] bmi 2021-08-27 16:00:00 30.52 kg/m2 [facility] Systolic blood 2021-07-24 20:23:00 130 mm[Hg] Univer sity of pressure [facility] Diastolic blood 2021-07-24 20:23:00 80 mm[Hg] Unive rsity of [facility] Heart rate 2021-07-24 20:23:00 67 /min [facility] acute hospital Body temperature 2021-07-24 20:23:00 36.67 Radha [facility] height 2021-07-24 20:23:00 165.1 cm [facility] acute hospital Body weight 2021-07-24 20:23:00 83.326 kg [facility] acute hospital BMI 2021-07-24 20:23:00 30.57 kg/m2 [facility] acute hospital height 2021-06-27 13:30:00 65 [in_i] [facility] weight 2021-06-27 13:30:00 180 [lb_av] [facility] temperature 2021-06-27 13:30:00 98 [degF] [facility] bmi 2021-06-27 13:30:00 29.95 kg/m2 [facility] S [facility] height 2021-05-24 11:20:00 65 [in_i] Common [facility] weight 2021-05-24 11:20:00 178 [lb_av] [facility] temperature 2021-05-24 11:20:00 98 [degF] [facility] bmi 2021-05-24 11:20:00 29.62 kg/m2 [facility] blood pressure 2021-05-24 11:20:00 135 mm[Hg] Common [facility] - systolic [facility] blood pressure 2021-05-24 11:20:00 86 mm[Hg] [facility] height 2021-04-23 13:40:00 65 [in_i] Common [facility] weight 2021-04-23 13:40:00 178 [lb_av] Common [facility] temperature 2021-04-23 13:40:00 97.7 [degF] Common [facility] bmi 2021-04-23 13:40:00 29.62 kg/m2 [facility] oximetry 2021-04-23 13:40:00 97 % [facility] respiratory rate 2021-04-23 13:40:00 18 /min Comm on [facility] blood pressure 2021-04-23 13:40:00 130 mm[Hg] Common [facility] - systolic [facility] blood pressure 2021-04-23 13:40:00 72 mm[Hg] [facility] height 2021-03-23 09:30:00 65 [in_i] Common [facility] weight 2021-03-23 09:30:00 178 [lb_av] [facility] bmi 2021-03-23 09:30:00 29.62 kg/m2 [facility] height 2021-02-22 15:20:00 65 [in_i] [facility] weight 2021-02-22 15:20:00 178 [lb_av] Common [facility] temperature 2021-02-22 15:20:00 98 [degF] [facility] bmi 2021-02-22 15:20:00 29.62 kg/m2 Common [facility] blood pressure 2021-02-22 15:20:00 134 mm[Hg] [facility] systolic [facility] blood pressure 2021-02-22 15:20:00 75 mm[Hg] [facility] - diastolic [facility] height 2021-02-15 09:00:00 65 [in_i] [facility] - [facility] weight 2021-02-15 09:00:00 178 [lb_av] [facility] temperature 2021-02-15 09:00:00 97.5 [degF] [facility] - [facility] bmi 2021-02-15 09:00:00 29.62 kg/m2 [facility] - [facility] height 2021-01-25 09:40:00 65 [in_i] [facility] weight 2021-01-25 09:40:00 178 [lb_av] [facility] temperature 2021-01-25 09:40:00 98 [degF] [facility] bmi 2021-01-25 09:40:00 29.62 kg/m2 [facility] - [facility] blood pressure 2021-01-25 09:40:00 132 mm[Hg] [facility] - systolic [facility] blood pressure 2021-01-25 09:40:00 76 mm[Hg] [facility] - diastolic [facility] height 2020-12-26 13:20:00 65 [in_i] [facility] - [facility] weight 2020-12-26 13:20:00 182.5 [lb_av] [facility] - [facility] temperature 2020-12-26 13:20:00 98.5 [degF] [facility] - [facility] bmi 2020-12-26 13:20:00 30.37 kg/m2 [facility] oximetry 2020-12-26 13:20:00 96 % [facility] - [facility] blood pressure 2020-12-26 13:20:00 140 mm[Hg] [facility] - systolic [facility] blood pressure 2020-12-26 13:20:00 65 mm[Hg] Common [facility] - diastolic [facility] height 2020-12-21 13:40:00 65 [in_i] [facility] weight 2020-12-21 13:40:00 182.5 [lb_av] [facility] temperature 2020-12-21 13:40:00 97.1 [degF] [facility] bmi 2020-12-21 13:40:00 30.37 kg/m2 Common S [facility] oximetry 2020-12-21 13:40:00 97 % [facility] respiratory rate 2020-12-21 13:40:00 17 /min Comm on [facility] blood pressure 2020-12-21 13:40:00 122 mm[Hg] Common [facility] - systolic [facility] blood pressure 2020-12-21 13:40:00 66 mm[Hg] Common [facility] - diastolic [facility] height 2020-12-05 10:00:00 65 [in_i] [facility] weight 2020-12-05 10:00:00 182.5 [lb_av] [facility] temperature 2020-12-05 10:00:00 97.4 [degF] [facility] bmi 2020-12-05 10:00:00 30.37 kg/m2 [facility] S pirit [facility] height 2020-10-26 16:00:00 65 [in_i] [facility] 2020-10-26 16:00:00 182.5 [lb_av] [facility] temperature 2020-10-26 16:00:00 97.2 [degF] [facility] bmi 2020-10-26 16:00:00 30.37 kg/m2 [facility] S [facility] oximetry 2020-10-26 16:00:00 95 % [facility] rate 2020-10-26 16:00:00 17 /min Comm on [facility] blood pressure 2020-10-26 16:00:00 125 mm[Hg] [facility] systolic [facility] blood pressure 2020-10-26 16:00:00 63 mm[Hg] [facility] - diastolic [facility] height 2020-05-16 15:00:00 65 [in_i] Common [facility] weight 2020-05-16 15:00:00 195.7 [lb_av] Common [facility] temperature 2020-05-16 15:00:00 97.2 [degF] Common S [facility] bmi 2020-05-16 15:00:00 32.56 kg/m2 [facility] S [facility] oximetry 2020-05-16 15:00:00 100 % Common S [facility] respiratory rate 2020-05-16 15:00:00 17 /min Comm on [facility] blood pressure 2020-05-16 15:00:00 128 mm[Hg] [facility] - systolic [facility] blood pressure 2020-05-16 15:00:00 60 mm[Hg] Common [facility] - diastolic [facility] height 2020-04-27 15:20:00 65 [in_i] Common [facility] weight 2020-04-27 15:20:00 190.0 [lb_av] Common [facility] temperature 2020-04-27 15:20:00 97.0 [degF] Common S pirit [facility] bmi 2020-04-27 15:20:00 31.61 kg/m2 [facility] 2020-04-27 15:20:00 97 % Common S [facility] respiratory rate 2020-04-27 15:20:00 16 /min Comm on [facility] blood pressure 2020-04-27 15:20:00 135 mm[Hg] [facility] - systolic [facility] blood pressure 2020-04-27 15:20:00 73 mm[Hg] [facility] - diastolic [facility] height 2020-04-13 14:40:00 65 [in_i] Common [facility] - [facility] weight 2020-04-13 14:40:00 193.6 [lb_av] Common [facility] temperature 2020-04-13 14:40:00 96.9 [degF] Common [facility] - [facility] bmi 2020-04-13 14:40:00 32.21 kg/m2 Common S pirit [facility] oximetry 2020-04-13 14:40:00 97 % Common S [facility]irit [facility] respiratory rate 2020-04-13 14:40:00 16 /min Comm on [facility] blood pressure 2020-04-13 14:40:00 135 mm[Hg] Common [facility] - systolic [facility] blood pressure 2020-04-13 14:40:00 65 mm[Hg] [facility] - [facility] height 2020-03-30 10:45:00 65 [in_i] Common [facility] weight 2020-03-30 10:45:00 191.2 [lb_av] [facility] temperature 2020-03-30 10:45:00 97 [degF] Common [facility]irit [facility] bmi 2020-03-30 10:45:00 31.81 kg/m2 Common S [facility]irit [facility] oximetry 2020-03-30 10:45:00 99 % Common [facility] respiratory rate 2020-03-30 10:45:00 18 /min Comm on [facility] blood pressure 2020-03-30 10:45:00 145 mm[Hg] [facility] - systolic [facility] blood pressure 2020-03-30 10:45:00 71 mm[Hg] [facility] - diastolic [facility] height 2020-03-28 14:20:00 65 [in_i] Common S [facility]irit [facility] weight 2020-03-28 14:20:00 192.5 [lb_av] Common [facility] temperature 2020-03-28 14:20:00 97.0 [degF] [facility] 2020-03-28 14:20:00 32.03 kg/m2 Common S [facility] oximetry 2020-03-28 14:20:00 98 % Common [facility] respiratory rate 2020-03-28 14:20:00 16 /min Comm on [facility] blood pressure 2020-03-28 14:20:00 133 mm[Hg] Common [facility] - systolic [facility] blood pressure 2020-03-28 14:20:00 67 mm[Hg] Common [facility] - diastolic [facility] height 2020-03-16 16:30:00 65 [in_i] Common [facility] weight 2020-03-16 16:30:00 192.7 [lb_av] [facility] temperature 2020-03-16 16:30:00 97.2 [degF] Common [facility] bmi 2020-03-16 16:30:00 32.06 kg/m2 Common [facility] oximetry 2020-03-16 16:30:00 100 % [facility] respiratory rate 2020-03-16 16:30:00 17 /min Comm on [facility] blood pressure 2020-03-16 16:30:00 137 mm[Hg] Common [facility] - systolic [facility] blood pressure 2020-03-16 16:30:00 70 mm[Hg] Common [facility] - diastolic [facility] BP Systolic 2021-12-05 13:19:00 BP Diastolic 2021-12-05 [...] Performing Clinician Source Performed [place] TIME OR 2022-10-28 13:25:00 Tyler Chang [facility] (NON-REPORTABLE) Medical Branch [place] TIME OR 2022-10-28 13:25:00 Tyler Chang [facility] (NON-REPORTABLE) Medical Branch BLOCK EPIDURAL 2022-10-28 13:11:00 Tyler Chang [facility] Medical Branch EXTERNAL PROVIDER RECORDS 2022-10-15 05:01:00 Doctor Barbara, [facility] [place] [facility] EXTERNAL PROVIDER RECORDS 2022-10-15 05:01:00 Doctor Barbara [facility] [place] [facility] FL TIME OR 2022-08-19 13:53:00 Tyler Chang [facility] (NON-REPORTABLE) Medical Branch FL TIME OR 2022-08-19 13:53:[facility] BLOCK EPIDURAL 2022-08-19 13:25:00 Tyler Chang [facility] Medical Branch DAY SURGERY - [facility] 2022-08-19 06:01:00 Doctor Barbara, [facility] [place] [facility] PHYSICIAN ORDERS 2022-08-14 06:01:00 Doctor Barbara, [facility] [place] [facility] ASSIGNMENT OF BENEFITS 2022-08-07 14:52:43 Doctor Barbara, [facility] [place] [facility] FL TIME OR 2022-02-04 13:33:00 Tyler Chang [facility] (NON-REPORTABLE) Medical Branch BLOCK EPIDURAL 2022-02-04 13:19:00 Tyler Chang [facility] Medical [facility] DAY SURGERY - [facility] 2022-02-04 05:01:00 Doctor Barbara, [facility] [place] [facility] ASSIGNMENT OF BENEFITS 2022-02-01 13:22:22 Doctor Barbara, [facility] INSURANCE CORRESPONDENCE 2022-01-22 05:01:00 Doctor Jimenez [facility] [place] [facility] FL TIME OR 2022-01-21 13:09:57 Tyler Chang [facility] (NON-REPORTABLE) Medical Branch FL TIME OR 2022-01-21 13:09:57 Tyler Chang [facility] (NON-REPORTABLE) Medical Branch BLOCK EPIDURAL 2022-01-21 12:20:00 Tyler Chang [facility] Medical Branch POCT GLUCOSE (AUTOMATED) 2022-01-21 11:52:00 Tyler Chang [facility] POCT GLUCOSE (AUTOMATED) 2022-01-21 11:52:00 Tyler Chang [facility] POCT GLUCOSE(AGE >30DAYS) 2022-01-21 11:50:00 [facility]AGE >30DAYS[facility] 2022-01-21 11:50:00 [facility] [place] [facility] - [facility] 2022-01-21 05:01:00 Doctor Barbara [facility] [place] [facility] ASSIGNMENT OF BENEFITS 2022-01-19 13:49:22 Doctor Barbara [facility] [place] [facility] FL TIME OR 2022-01-07 14:28:08 Tyler Chang [facility] (NON-REPORTABLE) Medical Branch BLOCK EPIDURAL 2022-01-07 13:11:00 Tyler Chang [facility] Medical Branch PATIENT QUESTIONNAIRE 2022-01-07 05:01:00 Doctor Barbara, [facility] [place] [facility] ASSIGNMENT OF BENEFITS 2022-01-04 15:33:26 [facility] [place] [facility] ASSIGNMENT OF BENEFITS 2021-12-27 15:16:29 [facility] EXTERNAL PROVIDER RECORDS 2021-12-26 05:01:00 Doctor Jimenez [facility] [place] [facility] EXTERNAL PROVIDER RECORDS 2021-12-26 05:01:00 Doctor Barbara [facility] [place] [facility] [id number] Ecg Routine Ecg 2016-10-23 00:00:00 W/least 12 Lds W/i r [id number] Ecg Routine Ecg 2016-07-09 00:00:00 W/least 12 Lds W/i r Plan of Care Planned Activity Planned Date Details Comments Source Goal Plan of Care Note [code = 64755-3] Goal Plan of Care Note [code = 48117-9] Goal Plan of Care Note [code = 34706-3] Goal Plan of Care Note [code = 28808-2] Goal Plan of Care Note [code = 89325-2] Goal Plan of Care Note [code = 53665-1] Goal Plan of Care Note [code = 94554-5] Goal Plan of Care Note [code = 55284-5] Goal Plan of Care Note [code = 80798-7] Goal Plan of Care Note [code = 23459-0] Goal Plan of Care Note [code = 62891-1] Goal Plan of Care Note [code = 66723-7] Goal Plan of Care Note [code = 17642-4] Goal Plan of Care Note [code = 43534-0] Goal Plan of Care Note [code = 08802-8] Goal Plan of Care Note [code = 60019-9] Goal Plan of Care Note [code = 87600-1] Goal Plan of Care Note [code = 93351-0] Goal Plan of Care Note [code = 16934-1] Goal Plan of Care Note [code = 84432-4] Goal Plan of Care Note [code = 42045-2] Goal Plan of Care Note [code = 85455-2] Goal Plan of Care Note [code = 85899-2] Goal Plan of Care Note [code = 62062-0] Goal Plan of Care Note [code = 63652-8] Goal Plan of Care Note [code = 29031-0] Goal Plan of Care Note [code = 80146-4] Goal Plan of Care Note [code = 08173-5] Goal Plan of Care Note [code = 56593-0] Goal Plan of Care Note [code = 46714-7] Goal Plan of Care Note [code = 04454-4] Goal Plan of Care Note [code = 04829-4] Goal Plan of Care Note [code = 00478-5] Goal Plan of Care Note [code = 50854-0] Goal Plan of Care Note [code = 33199-1] Goal Plan of Care Note [code = 62889-4] Goal Plan of Care Note [code = 51144-5] Goal Plan of Care Note [code = 91426-3] Goal Plan of Care Note [code = 00442-6] Goal Plan of Care Note [code = 20734-4] Goal Plan of Care Note [code = 19912-1] Goal Plan of Care Note [code = 67100-9] Goal Plan of Care Note [code = 16641-1] Goal Plan of Care Note [code = 26105-5] Goal Plan of Care Note [code = 59890-5] Goal Plan of Care Note [code = 78775-1] Goal Plan of Care Note [code = 68360-4] Goal Plan of Care Note [code = 38323-7] Goal Plan of Care Note [code = 70376-3] Goal Plan of Care Note [code = 10965-9] Goal Plan of Care Note [code = 64891-6] Goal Plan of Care Note [code = 88595-1] Encounters Start End Encounter Admission Attending Care Care Encounter Source Date/Time Date/Time Type Type Clinicians Facility Department ID 2022-11-05 Outpatient DOUG Miller [facility] [id number] Common 07:41:00 Tonio 97683 [facility] 2022-09-27 [facility] [id number] Common 09:47:00 Tonio 37463 [facility] 2022-09-17 [facility] [id number] Univers 15:13:58 [facility] 2022-08-29 Outpatient Briseida CHANG [facility] ANS [id number] Univers 15:21:37 [facility] 2022-07-17 [facility] [id number] Univers 12:43:40 [facility] 2022-06-03 Outpatient MillerDOUG brito [facility] [id number] Common 09:39:00 Tonio 57803 [facility] 2022-04-26 Outpatient MillerDOUG brito [facility] [id number] Common 14:39:00 Tonio 46363 [facility] 2022-04-25 Outpatient Miller, STLMLC STLMLC [id number] Common 13:11:00 Tonio [facility] 2022-01-17 Outpatient Miller, STLMLC STLMLC [id number] Common 13:47:01 Tonio [facility] 2022-01-07 Outpatient [facility] [id number] [place] 08:42:[address] [place] [address] 2021-10-30 Outpatient Miller, STLMLC STLMLC [id number] Common 15:01:00 Tonio [facility] 2021-10-04 Outpatient Miller, STLMLC STLMLC [id number] Common 08:34:01 Tonio [facility] 2021-07-18 Outpatient Miller, STLMLC STLMLC Common 14:19:22 Tonio 06487 [facility] 2021-07-18 Outpatient Miller, STLMLC STLMLC Common 13:45:16 Tonio 57621 [facility] 2021-07-18 Outpatient Miller, STLMLC STLMLC Common 12:59:49 Tonio 63963 [facility] 2021-07-18 Outpatient Miller, STLMLC STLMLC Common 12:31:12 Tonio 00791 [facility] 2021-07-18 Outpatient Miller, STLMLC STLMLC [id number] Common 12:29:23 Tonio 91231 [facility] 2021-07-18 Outpatient Miller, STLMLC STLMLC [id number] Common 12:24:50 Tonio 22168 [facility] 2021-07-18 Outpatient Miller, STLMLC STLMLC [id number] Common 12:24:31 Tonio 23868 [facility] 2021-07-18 Outpatient Miller, STLMLC STLMLC [id number] Common 12:23:16 Tonio 45021 [facility] 2021-07-18 Outpatient Miller, STLMLC STLMLC [id number] Common 12:09:35 Tonio 91609 [facility] 2021-07-18 Outpatient Miller, STLMLC STLMLC [id number] Common 12:08:47 Tonio 15090 [facility] 2021-07-18 Outpatient Miller, STLMLC STLMLC [id number] Common 12:08:21 Tonio 54274 [facility] 2021-07-18 Outpatient Miller, STLMLC STLMLC [id number] Common 12:07:39 Tonio 16664 [facility] 2021-07-18 Outpatient Miller, STLMLC STLMLC [id number] Common 11:57:35 Tonio 55066 [facility] 2021-07-18 Outpatient Miller, STLMLC STLMLC [id number] Common 11:55:10 Tonio 97532 [facility] 2021-07-18 Outpatient Miller, STLMLC STLMLC [id number] Common 11:25:38 Tonio 98886 [facility] 2021-07-18 Outpatient Miller, STLMLC STLMLC [id number] Common 11:24:24 Tonio 44529 [facility] 2021-07-18 Outpatient Miller, STLMLC STLMLC [id number] Common 11:20:51 Tonio 61534 [facility] 2021-07-18 Outpatient Miller, STLMLC STLMLC [id number] Common 11:19:05 Tonio 96594 [facility] 2021-07-18 Outpatient Miller, STLMLC STLMLC [id number] Common 11:17:38 Tonio 48221 [facility] 2021-07-18 Outpatient Miller, STLMLC STLMLC [id number] Common 11:10:37 Tonio 07963 [facility] 2021-07-18 Outpatient Miller, STLMLC STLMLC [id number] Common 11:07:32 Tonio 81607 [facility] 2021-07-18 Outpatient Miller, STLMLC [facility] [id number] Common 11:07:07 Tonio 51366 [facility] 2021-07-18 [facility] [id number] Common 11:06:50 Tonio 95886 [facility] 2021-07-18 [facility] [id number] Common 11:04:55 Tonio 74520 [facility] 2021-07-18 [facility] [id number] Common 11:00:24 Tonio 71254 [facility] 2021-04-22 Outpatient Briseida CHANG [facility] ANS [id number] Univers 14:22:47 [facility] 2021-04-22 [facility] [id number] Univers 10:11:45 [facility] 2021-04-22 [facility] [id number] Univers 10:11:40 [facility] 2021-04-20 [facility] K[facility]AN [id number] Univers 17:34:36 [facility] 2021-04-20 [facility] [id number] Univers 14:46:00 [facility] 2021-04-20 [facility] [id number] Univers 13:57:14 [facility] 2021-04-20 [facility] KIEARN [id number] Univers 01:30:11 [facility] 2021-04-20 Out[facility] [id number] Univers 01:30:04 [facility] 2021-04-20 Outpatient [facility] [id number] Univers 01:29:58 [facility] 2021-04-19 Emergency [facility] [id number] Univers 16:47:45 [facility] 2021-04-19 Outpatient [facility] [id number] Univers 16:35:06 BRAEDEN ity [facility] 2021-04-19 Outpatient R BALJEET [facility] [id number] Univers 15:34:38 [facility] Emergency [facility] [id number] Univers 15:15:49 ity [facility] 2021-04-19 Outpatient [facility] K[facility] [id number] Univers 12:34:04 TYLER ity [facility] 2021-04-19 Outpatient [facility] K[facility] [id number] Univers 11:32:12 [facility]22-10-28 2022-10-28 Outpatient [facility] [id number] Univers 07:04:00 09:08:00 TYLER ity [facility] 2022-10-28 2022-10-28 [facility] 1.2.840.114 [id number] Univers 07:04:00 09:08:00 Encounter Tyler Eleazar [place] 350.1.13.10 it[place] [id number] [facility] [address] 2022-10-28 2022-10-28 Surgery [facility] 1.2.337.189 [id number] Univers 08:28:00 08:50:00 Tyler S [place] 350.1.13.10 it[place] [id number] [facility] [address] 2022-09-20 2022-09-20 Outpatient R RACHELLE BOWMAN [facility] B [id number] Univers 10:00:00 10:00:00 RACHELLE BOWMAN itsergio [facility] 2022-09-17 2022-09-17 Outpatient R RACHELLE BOWMAN [facility] B [id number] Univers 09:00:00 09:00:00 RACHELLE BOWMAN sergio [facility] 2022-09-02 2022-09-02 [facility] 1.2.864.289 [id number] Univers 00:00:00 00:00:00 Otoniel ASKEW 350.1.13.10 i [place] [id number] Me dical NAL 134 [facility] 2022-08-19 2022-08-19 Outpatient [facility] KIERAN [id number] Univers 06:39:00 08:33:00 TYLER ity [facility] 2022-08-19 2022-08-19 [facility] 1.2.840.114 [id number] Univers 06:39:00 08:33:00 Encounter Tyler ASKEW 350.1.13.10 [place] [id number] [facility] [address] 2022-08-19 2022-08-19 Surgery [facility] 1.2.255.325 [id number] Univers 07:25:00 07:47:00 Tyler ASKEW 350.1.13.10 it[place] of [place] [id number] [facility] [address] 2022-08-14 2022-08-14 Value Analyst Candace, 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 [facility] 1.2.8 40.114 [id number] Univers 11:15:00 11:30:00 Visit Tyler Chang 350.1.13.1 0 it[place] of [place] [id number] Tx dical NAL 353 [facility] 2022-08-14 2022-08-14 [facility] [id number] Univers 11:15:00 11:15:00 TYLER ity [facility] 2022-08-14 2022-08-14 Orders Doctor [place] 1.2.840.114 [id number] Univers 00:00:00 00:00:00 Only Unassigned, HECTOR 350.1.13.10 ity of [place] [facility] 4.2.7.2.686 João as [phone] [address] 2022-08-07 2022-08-07 Orders Doctor ANGLE 1.2.840.114 [id number] Univers 00:00:00 00:00:00 Only Unassigned, HECTOR 350.1.13.10 ity of [place] [facility] 4.2.7.2.686 João as [id number] [address] 2022-08-02 2022-08-02 Sandra Geiger [facility] 1.2.403.655 [id number] Univers 00:00:00 00:00:00 Otoniel JAMILAH 350.1.13.10 i ty of [place] [id number] T[place] dical [address] 2022-07-23 2022-07-23 (INJ) STLMLC STLMLC [id number] Co mmon 00:00:00 00:00:00 Injection Spir it - [facility] 2022-07-19 2022-07-19 Telephone [facility] 1.2.840.11 4 [id number] Univers 00:00:00 00:00:00 Rachelle LUCIO 350.1.13.10 it [place] [id number] [address] 2022-07-17 2022-07-17 Outpatient R RACHELLE BOWMAN [facility] B [id number] Univers 13:00:00 13:32:20 TRIRACHELLE PHAN ity [facility] 2022-07-17 2022-07-17 Office [facility] 1.2.840.114 [id number] Univers 13:00:00 13:32:20 Visit Rachelle LUCIO 350.1.13.10 it [place] [id number] [address] 2022-07-16 2022-07-16 Telephone [facility] 1.2.840.11 4 [id number] Univers 00:00:00 00:00:00 Rachelle LUCIO 350.1.13.10 it [place] [id number] [facility] [address] 2022-07-14 2022-07-14 Sandra Geiger [facility] 1.2.708.272 [id number] Univers 00:00:00 00:00:00 Otoniel ASKEW 350.1.13.10 i ty [place] [id number] Tx dical [facility] [address] [facility] 2022-07-01 2022-07-01 (TEL) STLMLC STLMLC [id number] Co mmon 00:00:00 00:00:00 [facility] 2022-07-01 2022-07-01 OFFICE STLMLC STLMLC [id number] Co mmon 00:00:00 00:00:00 VISIT EST Spir it PT LEVEL 3 - [facility] 2022-06-18 2022-06-18 (TEL) STLMLC STLMLC [id number] Co mmon 00:00:00 00:00:00 [facility] 2022-05-13 2022-05-13 (TEL) STLMLC STLMLC [id number] Co mmon 00:00:00 00:00:00 [facility] 2022-05-08 2022-05-08 (TEL) STLMLC STLMLC [id number] Co mmon 00:00:00 00:00:00 [facility] 2022-04-29 2022-04-29 OFFICE STLMLC STLMLC [id number] Co mmon 00:00:00 00:00:00 VISIT Spirit ESTAB PT - CHI LEVEL 4 [facility] 2022-04-17 2022-04-17 Outpatient PERFECTO GROVE [id number] [place] 14:12:29 14:12:29 [address] [place] 2022-04-17 2022-04-17 Outpatient [id number] 5b [id number] 00:00:00 00:00:00 Visit [id number]-5 -9072-e5b [id number] 2022-04-17 2022-04-17 (TEL) STLMLC STLMLC [id number] Co mmon 00:00:00 00:00:00 Spirit - [facility] 2022-04-10 2022-04-10 Outpatient PERFECTO GROVE [id number] [place] 14:47:35 14:47:35 1019 F [place] 2022-04-10 2022-04-10 (TEL) STLMLC STLMLC [id number] Co mmon 00:00:00 00:00:00 Spirit - [facility] 2022-03-27 2022-03-27 OFFICE STLMLC STLMLC [id number] Co mmon 00:00:00 00:00:00 VISIT Spirit ESTAB PT - CHI LEVEL 2 [facility] 2022-02-28 2022-02-28 Outpatient R TONIE MILLER [facility] [id number] Univers 08:00:00 08:00:00 ity of [facility] 2022-02-12 2022-02-12 OFFICE STLMLC STLMLC [id number] Co mmon 00:00:00 00:00:00 VISIT [facility] PT - CHI LEVEL 2 [facility] 2022-02-04 2022-02-04 Outpatient [facility] [id number] Univers 07:05:00 09:09:00 TYLER ity [facility] 2022-02-04 2022-02-04 [facility] 1.2.840.114 [id number] Univers 07:05:00 09:09:00 Encounter Tyler Eleazar [place] 350.1.13.10 it[place] of [place]ICAL [id number] [facility] [address] 2022-02-04 2022-02-04 Surgery [facility] 1.2.010.162 [id number] Univers 08:25:00 08:48:00 Tyler S [place] 350.1.13.10 it[place] of [place] [id number] [facility] [address] 2022-02-04 2022-02-04 Orders Doctor ANGLE 1.2.840.114 [id number] Univers 00:00:00 00:00:00 Only Unassigned, HECTOR 350.1.13.10 ity of [place] [facility] 4.2.7.2.686 João as [id number] [facility] [address] 2022-02-01 2022-02-01 Laboratory Only, Adc Test [facility] 1.2.840. 114 [id number] Univers 09:00:00 09:15:00 Only Tyler Chang S [place] 350.1.13.1 0 it[place] [id number] [facility] [address] 2022-02-01 2022-02-01 Outpatient Briseida CHANG [facility] [id number] Univers 09:00:00 09:00:00 [facility] 2022-02-01 Orders Doctor [place] 1.2.840.114 [id number] Univers 00:00:00 00:00:00 Only Unassigned, HECTOR 350.1.13.10 ity of [place] [facility] 4.2.7.2.686 João as [id number] [address] 2022-01-28 2022-01-28 OFFICE [facility] [id number] Co mmon 00:00:00 00:00:00 VISIT Spirit ESTAB PT - CHI LEVEL 4 [facility] 2022-01-22 2022-01-22 Orders Doctor [place] 1.2.840.114 [id number] Univers 00:00:00 00:00:00 Only Unassigned, HECTOR 350.1.13.10 ity of [place] [facility] 4.2.7.2.686 João as [id number] [address] 2022-01-21 2022-01-21 Outpatient RACHELLE GLEASON [facility] B [id number] Univers 14:00:00 14:00:00 RACHELLE BOWMAN itsergio of [facility] 2022-01-21 2022-01-21 Outpatient Briseida CHANG [facility] ANS [id number] Univers 06:28:00 08:09:00 TYLER ity of [facility] 2022-01-21 2022-01-21 Hospital Bernardo, [facility] 1.2.840.114 [id number] Univers 06:28:00 08:09:00 Encounter Tyler ASKEW 350.1.13.10 it[place] [id number] [facility] [address] 2022-01-21 2022-01-21 Surgery [facility] 1.2.257.896 [id number] Univers 07:25:00 07:48:00 Tyler PENGTON 350.1.13.10 it[place] of [place]ICAL [id number] [facility] [address] 2022-01-21 2022-01-21 Orders Doctor [place] 1.2.840.114 [id number] Univers 00:00:00 00:00:00 Only Unassigned, HECTOR 350.1.13.10 ity of [place] [facility] 4.2.7.2.686 João as [id number] [facility] [address] 2022-01-19 2022-01-19 Laboratory Only, Adc Test [facility] 1.2.840. 114 [id number] Univers 09:15:00 09:30:00 Only Tyler Chang 350.1.13.1 0 it[place] C[place]US [id number] [facility] [address] 2022-01-19 2022-01-19 [facility] [id number] Univers 09:15:00 09:15:00 TYLER ity of [facility] 2022-01-19 2022-01-19 Orders Doctor [place] 1.2.840.114 [id number] Univers 00:00:00 00:00:00 Only Unassigned, HECTOR 350.1.13.10 ity of [place] [facility] 4.2.7.2.686 João as [id number] [facility] [address] 2022-01-17 2022-01-17 OFFICE [facility] [id number] Co mmon 00:00:00 00:00:00 VISIT Spirit ESTAB PT - CHI LEVEL 2 [facility] 2022 2022 Outpatient R NORMASYLVESTER RACHELLE [facility] B [id number] Univers 15:30:00 15:30:00 NORMARACHELLE PHAN ity [facility] 2022-01-07 2022-01-07 Outpatient R BERNARDO [facility] ANS [id number] Univers 06:46:00 09:11:00 TYLER ity of [facility] 2022-01-07 2022-01-07 [facility] 1.2.840.114 [id number] Univers 06:46:00 09:11:00 Encounter Tyler ASKEW 350.1.13.10 it[place] of [place] [id number] [facility] [address] 2022-01-07 2022-01-07 Surgery [facility] 1.2.317.013 [id number] Univers 08:23:00 08:46:00 Tyler PENGTON 350.1.13.10 it[place] of [place]ICAL [id number] [facility] [address] 2022-01-07 2022-01-07 Orders Doctor ANGLE 1.2.840.114 [id number] Univers 00:00:00 00:00:00 Only Unassigned, HECTOR 350.1.13.10 ity of [place] [facility] 4.2.7.2.686 João as [id number] [facility] [address] 2022-01-04 2022-01-04 Laboratory Only, Adc Test [facility] 1.2.840. 114 [id number] Univers 09:45:00 10:00:00 Only Gilson Changt Eleazar ASKEW 350.1.13.1 0 [place]US [id number] [facility] [address] 2022-01-04 2022-01-04 Outpatient R BERNARDO [facility] [id number] Univers 09:45:00 09:45:00 TYLER ity of [facility] 2022-01-04 2022-01-04 Orders Doctor ANGLE 1.2.840.114 [id number] Univers 00:00:00 00:00:00 Only Unassigned, HECTOR 350.1.13.10 ity of [place] [facility] 4.2.7.2.686 João as [id number] [address] 2022-01-03 2022-01-03 OFFICE STLMLC STLMLC [id number] Co mmon 00:00:00 00:00:00 VISIT [facility] LEVEL 2 [facility] 2022-01-03 2022-01-03 (TEL) STLMLC STLMLC [id number] Co mmon 00:00:00 00:00:00 [facility] 2022-01-02 2022-01-02 (TEL) STLMLC STLMLC [id number] Co mmon 00:00:00 00:00:00 [facility] 2021-12-27 2021-12-27 Value Analyst Candace, Tommy Lab Main [facility] 1.2.8 40.114 [id number] Univers 10:15:00 10:30:00 Visit Tyler Chang 350.1.13.1 0 ity [facility] [place].2.[place] [id number] [address] 2021-12-27 2021-12-27 Outpatient R BERNARDO [facility] [id number] Univers 10:15:00 10:15:00 TYLER ity [facility] 2021-12-27 2021-12-27 Orders Doctor ANGLE 1.2.840.114 [id number] Univers 00:00:00 00:00:00 Only Unassigned, HECTOR 350.1.13.10 ity of [place] [facility] 4.2.7.2.686 João as [phone] [address] 2021-12-13 2021-12-13 (TEL) STLC STLMLC [id number] Co mmon 00:00:00 00:00:00 [facility] 2021-12-11 2021-12-11 (TEL) STLMLC STLMLC [id number] Co mmon 00:00:00 00:00:00 [facility] 2021-12-10 2021-12-10 OFFICE STLMLC STLMLC [id number] Co mmon 00:00:00 00:00:00 VISIT EST Spir it PT LEVEL 3 - [facility] 2021-12-09 2021-12-09 (TEL) STLMLC STLMLC [id number] Co mmon 00:00:00 00:00:00 [facility] 2021-12-05 2021-12-05 Outpatient R RACHELLE BOWMAN [facility] B [id number] [facility] 11:30:00 11:30:00 RACHELLE BOWMAN [facility] 2021-12-04 2021-12-04 (TEL) STLMLC STLMLC [id number] Co mmon 00:00:00 00:00:00 [facility] 2021-11-22 2021-11-22 OFFICE STLMLC STLMLC [id number] Co mmon 00:00:00 00:00:00 VISIT Spirit ESTAB PT - CHI LEVEL 2 [facility] 2021-11-07 2021-11-07 (TEL) STLMLC STLMLC [id number] Co mmon 00:00:00 00:00:00 [facility] 2021-10-30 2021-10-30 OFFICE STLMLC STLMLC [id number] Co mmon 00:00:00 00:00:00 VISIT Spirit ESTAB PT - CHI LEVEL 4 [facility] 2021-10-23 2021-10-23 (TEL) STLMLC STLMLC [id number] Co mmon 00:00:00 00:00:00 [facility] 2021-10-17 2021-10-17 OFFICE STLMLC STLMLC [id number] Co mmon 00:00:00 00:00:00 VISIT Spirit ESTAB PT - CHI LEVEL 2 [facility] 2021-10-02 2021-10-02 (TEL) STLMLC STLMLC [id number] Co mmon 00:00:00 00:00:00 Spirit - [facility] 2021-09-27 2021-09-27 Outpatient Briseida GE[facility]ER [facility] [id number] Univers 14:30:00 14:30:00 [facility] 2021-09-19 OFFICE STLMLC STLMLC [id number] Co mmon 00:00:00 00:00:00 VISIT EST Spir it PT LEVEL 3 - [facility] 2021-09-18 2021-09-18 Outpatient Briseida GEIGER [facility] [id number] Univers 10:45:00 10:45:00 [facility] 2021-09-11 2021-09-11 Outpatient Briseida GEIGER [facility] [id number] Univers 09:30:00 09:30:00 [facility] 2021-08-30 2021-08-30 (INJ) STLMLC STLMLC [id number] Co mmon 00:00:00 00:00:00 Injection Spir it - [facility] 2021-08-27 2021-08-27 OL DIG E/M STLMLC STLMLC [id number] Common 00:00:00 00:00:00 SVC 11-20 Spir it MIN [facility] 2021-08-20 2021-08-20 (TEL) STLMLC STLMLC [id number] Co mmon 00:00:00 00:00:00 [facility] 2021-08-10 2021-08-10 (TEL) STLMLC STLMLC [id number] Co mmon 00:00:00 00:00:00 [facility] 2021-07-30 2021-07-30 Telephone Fely CAJOSE ANTONIO ALMEIDA [id number] Univers 00:00:00 00:00:00 Otoniel LUCIO [id number] it y [facility]'S [id number] [facility] [id number] [place] [id number] [address] 2021-07-25 2021-07-25 (INJ) STLMLC STLMLC [id number] Co mmon 00:00:00 00:00:00 Injection Spir it - [facility] 2021-07-24 2021-07-24 [facility] [id number] Univers 14:30:00 14:50:25 OTONIEL [facility] 2021-07-24 2021-07-24 [facility] [id number] Univers 14:30:00 14:50:25 Visit Otoniel ITZ [id number] [place] [facility] [place] [id number] [place] [facility] [id number] [facility] [address] 2021-07-11 2021-07-11 (TEL) STLMLC STLC [id number] Co mmon 00:00:00 00:00:00 [facility] 2021-07-02 2021-07-02 [facility] [id number] Univers 11:00:00 11:00:00 [facility] 2021-07-02 2021-07-02 [facility] [id number] Univers 06:47:00 08:10:00 TYLER [facility] 2021-07-02 2021-07-02 [facility] 1.2.840.114 [id number] Univers 06:47:00 08:10:00 Encounter Tyler Eleazar GINETTETON 350.1.13.10 ity of [place] [id number] [facility] [address] 2021-07-02 2021-07-02 Surgery [facility] 1.2.457.698 [id number] Univers 07:30:00 07:50:00 Tyler S [place] 350.1.13.10 it[place] of [place] [id number] [facility] [address] 2021-07-02 2021-07-02 Orders Doctor BARBOUR 1.2.840.114 [id number] Univers 00:00:00 00:00:00 Only Unassigned, HECTOR 350.1.13.10 ity of [place] [facility] 4.2.7.2.686 João as [phone] [facility] [address] [place] 2021-06-30 2021-06-30 Laboratory Only, Adc Test [facility] 1.2.840. 114 [id number] Univers 10:00:00 10:15:00 Only KiramAalia JAMILAH 350.1.13.10 ity of [place].2.7.2.[place] CAMPUS [id number] [facility] [address] [place] 2021-06-30 2021-06-30 [facility] [id number] Univers 10:00:00 10:00:00 AMALIA [facility] 2021-06-30 2021-06-30 Orders Doctor [place] 1.2.840.114 [id number] Univers 00:00:00 00:00:00 Only Unassigned, HECTOR 350.1.13.10 ity of [place] [facility] 4.2.7.2.686 João as [phone] [address] 2021-06-29 2021-06-29 Outpatient [facility] [id number] Univers 08:15:00 08:15:00 TYLER [facility] 2021-06-28 2021-06-28 Outpatient Briseida [facility] [id number] Univers 15:30:00 15:59:48 [facility] 2021-06-28 2021-06-28 Office [facility] 1.2.114.697 [id number] Univers 15:30:00 15:59:48 Visit Otoniel ASKEW 350.1.13.10 i ty of [place] 4.2.7.2.686 [place] [facility] [phone] [address] 2021-06-28 2021-06-28 Outpatient Briseida [facility] [id number] Univers 15:30:00 15:59:48 OTONIEL [facility] 2021-06-28 2021-06-28 Outpatient Briseida [facility] [id number] Univers 10:00:00 10:00:00 [facility] 2021-06-28 2021-06-28 Outpatient [facility] [id number] Univers 10:00:00 10:00:00 [facility] 2021-06-27 2021-06-27 OFFICE STLMLC STLMLC [id number] Co mmon 00:00:00 00:00:00 VISIT Spirit ESTAB PT - CHI LEVEL 2 [facility] 2021-06-12 2021-06-12 Outpatient [facility] [id number] Univers 10:30:00 10:30:00 [facility] 2021-06-11 2021-06-11 Outpatient R [facility] ANS [id number] Univers 07:06:00 08:45:00 TYLER [facility] 2021-06-11 2021-06-11 [facility] 1.2.840.114 [id number] Univers 07:06:00 08:45:00 Encounter Tyler Eleazar [place] 350.1.13.10 ity of [place] 4.2.7.2.[place] SURGICAL [id number] [facility] [address] [place] 2021-06-11 2021-06-11 Surgery [facility] 1.2.227.374 [id number] Univers 07:49:00 08:09:00 Tyler S [place] 350.1.13.10 ity of [place] 4.2.7.2.[place] SURGICAL [id number] [facility] [address] 2021-06-08 2021-06-08 Outpatient R [facility] [id number] Univers 08:45:00 08:45:00 TYLER [facility] 2021-06-06 2021-06-06 Telephone [facility]ou[facility] 1.2.840.114 [id number] Univers 00:00:00 00:00:00 Otoniel [place] 350.1.13.10 i ty of [place] 4.2.7.2.[place] PROFESSIO [phone] Tx dical NAL 134 [facility] 2021-06-01 2021-06-01 Reftiffany [facility]igerPRES[facility] 1.2.618.721 [id number] Univers 00:00:00 00:00:00 Otoniel JAMILAH 350.1.13.10 i ty of [place] 4.2.7.2.[place] [phone] Tx dical NAL 134 [facility] 2021-05-31 2021-05-31 (INJ) STLMLC STLMLC [id number] Co mmon 00:00:00 00:00:00 Injection Spir it - CHI [facility] 2021-05-30 2021-05-30 Outpatient Briseida [facility] [id number] Univers 15:00:00 15:00:00 OTONIEL sergio [facility] 2021-05-28 2021-05-28 Outpatient Briseida CHANGPRESBYTER[facility] ANS [id number] Univers 07:05:00 08:35:00 TYLER patrizia [facility] 2021-05-28 2021-05-28 [facility] 1.2.840.114 [id number] Univers 07:05:00 08:35:00 Encounter Tyler Bush JAMILAH 350.1.13.10 ity of [place] 4.2.7.2.[place] SURGICAL [phone] [facility] [address] [place] 2021-05-28 2021-05-28 Surgery [facility] 1.2.713.778 [id number] Univers 07:49:00 08:09:00 Tyler ASKEW 350.1.13.10 ity of [place] 4.2.7.2.686 [place] SURGICAL [id number] [facility] [address] 2021-05-28 2021-05-28 Orders Doctor BARB[place] 1.2.840.114 [id number] Univers 00:00:00 00:00:00 Only Unassigned, HECTOR 350.1.13.10 ity of [place] [facility] 4.2.7.2.686 João as [phone] [address] 2021-05-25 2021-05-25 Outpatient R [facility] [id number] Univers 08:45:00 08:45:00 TYLER ity [facility] 2021-05-24 2021-05-24 [facility] [id number] Co mmon 00:00:00 00:00:00 VISIT Ronnie WHEELER PT - CHI LEVEL 4 [facility] 2021-05-23 2021-05-23 Value Analyst Candace, Tommy Lab Main [facility] 1.2.8 40.114 [id number] Univers 11:13:53 11:28:53 Visit Tyler Chang JAMILAH 350.1.13.1 0 ity of [place] 4.2.7.2.686 [place] [facility] [phone] Tx dical [facility] 353 [facility] 2021-05-23 2021-05-23 Outpatient Briseida [facility] [id number] Univers 11:15:00 11:15:00 TYLER ity [facility] 2021-05-21 2021-05-21 Outpatient Briseida [facility] [id number] Univers 11:45:00 11:45:00 TYLER ity [facility] 2021-05-21 2021-05-21 Orders Doctor ANGLE 1.2.840.114 [id number] Univers 00:00:00 00:00:00 Only Unassigned, HECTOR 350.1.13.10 ity of [place] [facility] 4.2.7.2.686 João as [phone] [facility] [address] 2021-05-09 2021-05-09 Outpatient Briseida [facility] [id number] Univers 09:30:10 23:59:00 TYLER ity [facility] 2021-05-09 2021-05-09 Hospital [facility] 1.2.840.114 [id number] Univers 09:30:10 23:59:00 Encounter Tyler PENGCHICO 350.1.13.10 ity of [place] 4.2.7.2.686 [place] CAMPUS [id number] [facility] [address] 2021-05-09 2021-05-09 Outpatient Briseida [facility] [id number] Univers 00:00:00 00:00:00 TYLER ity [facility] 2021-05-09 2021-05-09 Orders Doctor ANGLE 1.2.840.114 [id number] Univers 00:00:00 00:00:00 Only Unassigned, HECTOR 350.1.13.10 ity of [place] [facility] 4.2.7.2.686 João as [phone] [address] 2021-05-09 2021-05-09 Case [facility] 1.2.532.003 [id number] Univers 00:00:00 00:00:00 Management Otoniel ASKEW 350.1.13.10 ity [place] [facility] 4.2.7.2.686 [place] [facility] [phone] Tx dical [address] 2021-05-08 2021-05-08 Outpatient [facility] [id number] Univers 16:00:00 14:47:53 [facility] 2021-05-08 2021-05-08 Outpatient [facility] [id number] Univers 16:00:00 14:47:53 [facility] 2021-05-08 2021-05-08 [address] [facility] 1.2.840.114 [id number] Univers 14:16:31 14:47:53 Visit Otoniel LUCIO 350.1.13.10 it y of [place].2.[place] [facility] [phone] [address] 2021-05-08 2021-05-08 Outpatient R ELIZABETH [facility] [id number] Univers 13:30:00 13:30:00 SARA [facility] 2021-04-23 2021-04-23 ([place]) Nurse STMORRIS STLC [id number] Common 00:00:00 00:00:00 Visit [facility] 2021-04-20 2021-04-20 Sandra [facility] 1.2.268.809 [id number] Univers 00:00:00 00:00:00 Otoniel ASKEW 350.1.13.10 i ty of [place] 4.2.7.2.[place] PROFESSIO [phone] Tx dical NAL 134 [facility] 2021-04-16 2021-04-16 (TEL) [facility] [id number] Co mmon 00:00:00 00:00:00 Spirit - CHI [facility] 2021-04-11 2021-04-11 Outpatient R [facility] [id number] Univers 10:30:00 10:30:00 ity of [facility] 2021-03-28 2021-03-28 [facility] 1.2.840.114 [id number] Univers 14:58:27 23:59:00 Encounter Genaro Askew 350.1.13.10 ity of [place] 4[place]2.7.2.686 [place] [phone] [facility] [address] [place] 2021-03-28 2021-03-28 Office [facility] 1.2.761.715 [id number] Univers 13:28:14 14:39:38 Visit Otoniel Askew 350.1.13.10 i ty of [place] 4.2.7.2.686 [place] Professio [phone] Tx dical nal [address] [place] [address] 2021-03-28 2021-03-28 Out[facility] [id number] Univers 13:30:00 13:30:00 OTONIEL ity [facility] 2021-03-28 2021-03-28 Orders Doctor BARBOUR 1.2.840.114 [id number] Univers 00:00:00 00:00:00 Only Unassigned, HECTOR 350.1.13.10 ity of [place] [facility] 4.2.7.2.686 João as [phone] [facility] [address] [place] 2021-03-23 2021-03-23 OFFICE [facility] [id number] Co mmon 00:00:00 00:00:00 VISIT Ronnie ESTAB PT - CHI LEVEL 2 [facility] 2021-03-22 2021-03-22 Outpatient [facility] [id number] Univers 11:00:00 11:00:00 BILAL ity [facility] 2021-03-22 2021-03-22 (TEL) STLMLC STLC [id number] Co mmon 00:00:00 00:00:00 [facility] 2021-03-21 2021-03-21 Telephone Fely [facility] 1.2.840.114 [id number] Univers 00:00:00 00:00:00 Otoniel Askew 350.1.13.10 i ty of [place] 4.2.7.2.686 [place] Profess[place] [phone] Tx dical nal 134 [facility] 2021-03-20 2021-03-20 Value Analyst Candace, 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 [facility] 1.2.8 40.114 [id number] Univers 09:38:10 09:53:10 Visit Otoniel Geiger 350.1.13.10 ity of [place] 4.2.7.2.686 [place] Profess[place] [phone] Tx dical [address] 2021-03-20 2021-03-20 Outpatient R FELY [facility] [id number] Univers 09:30:00 09:30:00 [facility] 2021-03-19 2021-03-19 [facility] [id number] Univers 00:00:00 00:00:00 [facility] 2021-03-19 2021-03-19 Outpatient R FELY [facility] [id number] Univers 00:00:00 00:00:00 [facility] 2021-03-19 2021-03-19 Telephone [facility] 1.2.840.114 [id number] Univers 00:00:00 00:00:00 Otoniel Askew 350.1.13.10 i ty of [place] 4.2.7.2.686 [place] Professio [phone] Tx dical nal [address] [place] [address] 2021-03-16 2021-03-16 Telephone Fely [facility] 1.2.840.114 [id number] Univers 00:00:00 00:00:00 Otoniel Lucio 350.1.13.10 it y of Women's 4.2.[place].2.[place] [phone] [address] 2021-03-15 2021-03-15 Telephone [facility] 1.2.840.114 [id number] Univers 00:00:00 00:00:00 Otoniel Pengton 350.1.13.10 i ty of [place] 4.2.7.2.686 [place] Profess[place] [phone] Me dical [address] 2021-03-13 2021-03-13 [facility] 1.2.840.114 [id number] Univers 15:02:56 15:45:17 Visit Otonielflaca Lucio 350.1.13.10 it y of Women's 4.2.[place].2.[place] [phone] [address] 2021-03-13 2021-03-13 Outpatient [facility] [id number] Univers 15:30:00 15:30:00 OTONIEL acharya of [facility] 2021-03-08 2021-03-08 Orders Doctor ANGLE 1.2.840.114 [id number] Univers 00:00:00 00:00:00 Only Unassigned, HECTOR 350.1.13.10 ity of [place] [facility] 4.2.7.2.686 João as [phone] [address] 2021-03-08 2021-03-08 Orders Doctor ANGLE 1.2.840.114 [id number] Univers 00:00:00 00:00:00 Only Unassigned, HECTOR 350.1.13.10 ity of [place] [facility] 4.2.7.2.686 João as [phone] [address] 2021-02-22 2021-02-22 [facility] [id number] Co mmon 00:00:00 00:00:00 VISIT Spirit ESTAB PT - CHI LEVEL 4 [facility] 2021-02-15 2021-02-15 [facility] [id number] Co mmon 00:00:00 00:00:00 VISIT Spirit ESTAB PT - CHI LEVEL 1 [facility] 2021-02-12 2021-02-12 Outpatient Briseida AGUIRRE [facility] [id number] Univers 00:00:00 00:00:00 BILAL ity [facility] 2021-02-08 2021-02-08 Outpatient Briseida [facility] [id number] Univers 11:00:00 12:44:31 BILAL ity [facility] 2021-02-08 2021-02-08 [facility] 1.2.840.114 [id number] Univers 10:51:46 12:44:31 Visit Room, [facility] HEALTH 350.1. 13.10 ity [facility] 4.2.7.2.686 [facility] [phone] [facility] [address] [facility] 2021-02-08 2021-02-08 Outpatient Briseida AGUIRRE [facility] [id number] Univers 11:00:00 11:00:00 BILAL ity [facility] 2021-02-08 2021-02-08 Orders Doctor BARBOUR 1.2.840.114 [id number] Univers 00:00:00 00:00:00 Only Unassigned, HECTOR 350.1.13.10 ity of [place] [facility] 4.2.7.2.686 [facility] [phone] [address] 2021-02-06 2021-02-06 Outpatient Briseida AGUIRRE [facility] [id number] Univers 15:15:00 17:01:55 BILAL ity [facility] 2021-02-06 2021-02-06 Office [facility] 1.2.840.114 [id number] Univers 14:34:08 17:01:55 Visit Bilal HEALTH 350.1.13.10 it y of [place] 4.2.7.2.686 [facility] [phone] [facility] 2021-02-06 2021-02-06 Outpatient Briseida [facility] [id number] Univers 15:15:00 15:15:00 BILAL ity [facility] 2021-01-25 2021-01-25 OFFICE STLMLC STLMLC [id number] Co mmon 00:00:00 00:00:00 VISIT [facility] PT - CHI LEVEL 4 [facility] 2021-01-02 2021-01-02 Orders Doctor ANGLE 1.2.840.114 [id number] Univers 00:00:00 00:00:00 Only Unassigned, HECTOR 350.1.13.10 ity of [place] [facility] 4.2.7.2.686 João as [phone] [place] [address] Branch 2021-01-02 2021-01-02 OFFICE STLMLC STLMLC [id number] Co mmon 00:00:00 00:00:00 VISIT [facility] PT - CHI LEVEL 1 [facility] 2021-01-02 2021-01-02 (TEL) STLMLC STLMLC [id number] Co mmon 00:00:00 00:00:00 [facility] 2021-01-01 2021-01-01 (TEL) STLMLC STLMLC [id number] Co mmon 00:00:00 00:00:00 [facility] 2021-01-01 2021-01-01 (TEL) STLMLC STLMLC [id number] Co mmon 00:00:00 00:00:00 [facility] 2020-12-28 2020-12-28 (TEL) STLMLC STLMLC [id number] Co mmon 00:00:00 00:00:00 [facility] 2020-12-27 2020-12-27 (TEL) STLMLC STLMLC [id number] Co mmon 00:00:00 00:00:00 [facility] 2020-12-26 2020-12-26 OFFICE STLMLC STLMLC [id number] Co mmon 00:00:00 00:00:00 VISIT EST Spir it PT LEVEL 3 - [facility] 2020-12-21 2020-12-21 OFFICE STLMLC STLMLC [id number] Co mmon 00:00:00 00:00:00 VISIT [facility] ESTAB PT - CHI LEVEL 1 [facility] 2020-12-20 2020-12-20 (TEL) STLMLC STLMLC [id number] Co mmon 00:00:00 00:00:00 Spirit - CHI [facility] 2020-12-08 2020-12-08 Orders Doctor ANGLE 1.2.840.114 [id number] Univers 00:00:00 00:00:00 Only Unassigned, HECTOR 350.1.13.10 ity of [place] [facility] 4.2.7.2.686 João as [phone] [facility] [address] 2020-12-05 2020-12-05 [facility] [id number] Co mmon 00:00:00 00:00:00 VISIT [facility] LEVEL 1 [facility] 2020-12-04 2020-12-04 (TEL) [facility] [id number] Co mmon 00:00:00 00:00:00 [facility] 2020-10-30 2020-10-30 [facility] 1.2.840.114 [id number] Univers 07:18:00 08:57:00 Encounter Tyler Pengton 350.1.13.10 it[place] of [place]2.[place].2.[place] Surgical [phone] [facility] [address] 2020-10-30 2020-10-30 Surgery [facility] 1.2.456.229 [id number] Univers 07:51:00 08:14:00 Tyler [place] 350.1.13.10 ity of [place] 4.2.7.2.686 [place] [id number] [facility] [address] 2020-10-30 2020-10-30 Orders Doctor ANGLE 1.2.840.114 [id number] Univers 00:00:00 00:00:00 Only Unassigned, HECTOR 350.1.13.10 ity of [place] [facility] 4.2.7.2.686 João as [phone] [facility] [address] 2020-10-27 2020-10-27 Laboratory Only, Adc Test [facility] 1.2.840. 114 [id number] Univers 11:16:12 11:31:12 Only Bernardo, Tyler S [place] 350.1.13.1 0 ity of [place] 4.2.7.2.686 [place] [phone] [facility] [address] 2020-10-27 2020-10-27 [facility] [id number] Univers 08:45:00 08:45:00 TYLER ity of [facility] 2020-10-27 2020-10-27 Orders Doctor ANGLE 1.2.840.114 [id number] Univers 00:00:00 00:00:00 Only Unassigned, HECTOR 350.1.13.10 [facility] 4.2.7.2.686 João as [phone] [facility] [address] 2020-10-26 2020-10-26 OFFICE STLMLC STLMLC [id number] Co mmon 00:00:00 00:00:00 VISIT [facility] PT - [facility] LEVEL 4 [facility] 2020-10-20 2020-10-20 (TEL) STLMLC STLMLC [id number] Co mmon 00:00:00 00:00:00 [facility] 2020-10-18 2020-10-18 (TEL) STLMLC STLMLC [id number] Co mmon 00:00:00 00:00:00 [facility] 2020-10-16 2020-10-16 [facility] 1.2.840.114 [id number] 06:39:00 08:43:00 Encounter Tyler Askew 350.1.13.10 [place] 4.2.7.2.686 Surgical [phone] [place] [address] 2020-10-16 2020-10-16 [facility] 1.2.840.114 [id number] Univers 06:39:00 08:43:00 Encounter Tyler Askew 350.1.13.10 ity of [place] 4[place]2.7.2.686 [place] [id number] [facility] [address] 2020-10-16 2020-10-16 Surgery [facility] 1.2.840.114 [id number] 07:51:00 08:13:00 [place] 350.1.13.10 [place] 4.2.7.2.686 Surgical [phone] Center 020 2020-10-16 2020-10-16 Surgery Bernardo [facility] 1.2.788.223 [id number] Univers 07:51:00 08:13:00 Tyler Bush [place] 350.1.13.10 ity of [place] 4.2.7.2.686 [place] [phone] [facility] [address] 2020-10-16 2020-10-16 Orders Doctor BARBOUR 1.2.840.114 [id number] 00:00:00 00:00:00 Only Unassigned, HECTOR 350.1.13.10 [place] [facility] 4.2.7.2.686 [id number] 009 2020-10-16 2020-10-16 Orders Doctor BARBOUR 1.2.840.114 [id number] Univers 00:00:00 00:00:00 Only Unassigned, HECTOR 350.1.13.10 ity of [place] [facility] 4.2.7.2.686 João as [phone] [facility] [address] 2020-10-13 2020-10-13 Outpatient R BERNARDO [facility] [id number] Univers 10:15:00 10:15:00 TYLER ity [facility] 2020-10-13 2020-10-13 Laboratory Only, [facility] 1.2.840.114 [id number] 09:49:03 10:04:03 Only Test [place] 350.1.13.10 [place] 4.2.7.2.686 [place] [id number] 353 2020-10-13 2020-10-13 Laboratory Only, Adc Test [facility] 1.2.840. 114 [id number] Univers 09:49:03 10:04:03 Only Tyler hCang Eleazar [place] 350.1.13.1 0 ity of [place] 4.2.7.2.686 [place] [phone] [facility] [address] 2020-10-13 2020-10-13 Orders Doctor BARBOUR 1.2.840.114 [id number] 00:00:00 00:00:00 Only Unassigned, HECTOR 350.1.13.10 [place] [facility] 4.2.7.2.686 [id number] 009 2020-10-13 2020-10-13 Orders Doctor ANGLE 1.2.840.114 [id number] Univers 00:00:00 00:00:00 Only Unassigned, HECTOR 350.1.13.10 ity of [place] [facility] 4.2.7.2.686 João as [phone] [place] [address] Branch 2020-10-05 2020-10-05 (TEL) STLMLC STLMLC [id number] Co mmon 00:00:00 00:00:00 [facility] 2020-10-03 2020-10-03 (TEL) STLMLC STLMLC [id number] Co mmon 00:00:00 00:00:00 [facility] 2020-10-02 2020-10-02 [facility] 1.2.840.114 [id number] 06:53:00 09:27:00 Encounter Tyler S [place] 350.1.13.10 [place] 4.2.7.2.686 Surgical [id number] [place] [address] 2020-10-02 2020-10-02 [facility] 1.2.840.114 [id number] Univers 06:53:00 09:27:00 Encounter Tyler S [place] 350.1.13.10 ity of [place] 4.2.7.2.686 [place] [id number] [place] [address] Branch 2020-10-02 2020-10-02 Surgery [facility] 1.2.840.114 [id number] 07:51:00 08:16:00 [place] 350.1.13.10 [place] 4.2.7.2.686 Surgical [id number] [place] [address] 2020-10-02 2020-10-02 Surgery [facility] 1.2.847.420 [id number] Univers 07:51:00 08:16:00 Tyler S [place] 350.1.13.10 ity of [place] 4.2.7.2.686 [place] [id number] [facility] [address] 2020-10-02 2020-10-02 Orders Doctor ANGLE 1.2.840.114 [id number] 00:00:00 00:00:00 Only Unassigned, HECTOR 350.1.13.10 [place] [facility] 4.2.7.2.686 [id number] 009 2020-10-02 2020-10-02 Orders Doctor ANGLE 1.2.840.114 [id number] Univers 00:00:00 00:00:00 Only Unassigned, HECTOR 350.1.13.10 ity of [facility] 4.2.7.2.686 João as [phone] [facility] [address] 2020-09-29 2020-09-29 Laboratory Only, [facility] 1.2.840.114 [id number] 10:08:41 10:23:41 Only Test [place] 350.1.13.10 [place] 4.2.7.2.686 [place] [phone] [facility] 2020-09-29 2020-09-29 Laboratory Only, [facility] Test [facility] 1.2.840. [id number] [facility] 10:08:41 10:23:41 Only Tyler Chang S [place] 350.1.13.1 0 [place] [phone] [facility] [address] 2020-09-29 2020-09-29 Outpatient R BERNARDO [facility] [id number] [facility] 10:15:00 10:15:00 TYLER ity of [facility] 2020-09-27 2020-09-27 Value Analyst Candace, [facility] 1.2.840.114 [id number] 14:35:00 14:50:00 Visit Lab Main [place] 350.1.13.10 [place] 4.2.7.2.686 [facility] [phone] [address] 2020-09-27 2020-09-27 Value Analyst Candace, Tommy Lab Main [facility] 1.2.[id number] [facility] 14:35:00 14:50:00 Visit Tyler Chang Jamilah 350.1.13.1 0 [place] [phone] [place] [facility] [address] [facility] 2020-09-27 2020-09-27 Outpatient R [facility] [id number] Univers 14:45:00 14:45:00 ity [facility] 2020-09-27 2020-09-27 Orders Doctor ANGLE 1.2.840.114 [id number] 00:00:00 00:00:00 Only Unassigned, HECTOR 350.1.13.10 [facility] 4.2.7.2.686 [id number] [facility] 2020-09-27 2020-09-27 Orders Doctor ANGLE 1.2.840.114 [id number] Univers 00:00:00 00:00:00 Only Unassigned, HECTOR 350.1.13.10 ity of [place] [facility] 4.2.7.2.686 João as [phone] [address] 2020-09-17 2020-09-17 Outpatient [facility] [id number] Univers 12:10:00 12:10:00 ity [facility] 2020-08-20 2020-08-20 Outpatient [facility] [id number] Univers 11:35:00 11:35:00 ity [facility] 2020-07-07 2020-07-07 [facility] 1.2.840.114 [id number] 10:30:00 10:45:00 Visit Angle Askew 350.1.13.10 [facility] 4.2.7.2.686 Professio [phone] [address] 2020-07-07 2020-07-07 Office Clara [facility] 1.2.840.114 [id number] Univers 10:30:00 10:45:00 Visit Angle Askew 350.1.13.10 i ty of Evangelista Ramírez [place] [phone] T[place] dical [facility] 2020-07-07 2020-07-07 [facility] [id number] Univers 10:30:00 10:30:00 ANGLE sergio [facility] 2020-06-27 2020-06-27 (TEL) STLMLC STLMLC [id number] Co mmon 00:00:00 00:00:00 [facility] 2020-06-14 2020-06-14 Outpatient R KARI [facility] [id number] Univers 11:00:00 11:00:00 TANG [facility] 2020-06-02 2020-06-02 Office [facility] 1.2.840.114 [id number] Univers 10:20:29 10:49:49 Visit Angle Askew 350.1.13.10 i ty of Evangelista Ramírez 4.2.7.2.686 [place] [phone] T[place] dical [address] 2020-06-02 2020-06-02 Outpatient Briseida [facility] [id number] Univers 10:30:00 10:30:00 ANGLE [facility] 2020-05-29 2020-05-29 (TEL) STLC STLC [id number] Co mmon 00:00:00 00:00:00 [facility] 2020-05-24 2020-05-24 Outpatient Briseida [facility] [id number] Univers 10:00:00 10:00:00 ALBERT [facility] 2020-05-22 2020-05-22 Orders Doctor ANGLE 1.2.840.114 [id number] Univers 00:00:00 00:00:00 Only Unassigned, HECTOR 350.1.13.10 ity of [facility] 4.2.7.2.686 João as [phone] [address] 2020-05-17 2020-05-17 (TEL) STLMLC STLMLC [id number] Co mmon 00:00:00 00:00:00 [facility] 2020-05-16 2020-05-16 OFFICE STLMLC STLMLC [id number] Co mmon 00:00:00 00:00:00 VISIT [facility] LEVEL 4 [facility] 2020-05-08 2020-05-08 Outpatient R ROBERTH [facility] [id number] Univers 13:00:00 13:00:00 ALBERT patrizia [facility] 2020-04-27 2020-04-27 OFFICE STLMLC STLMLC [id number] Co mmon 00:00:00 00:00:00 VISIT Spirit ESTAB PT - [facility]I LEVEL 4 [facility] 2020-04-26 2020-04-26 (TEL) STLMLC STLMLC [id number] Co mmon 00:00:00 00:00:00 Spirit - [facility]I [facility] 2020-04-13 2020-04-13 OFFICE STLMLC STLMLC [id number] Co mmon 00:00:00 00:00:00 VISIT Spirit ESTAB PT - CHI LEVEL 4 [facility] 2020-04-07 2020-04-07 Office [facility] 1.2.516.057 [id number] Univers 10:16:43 10:31:43 Visit Tang VALLEJO 350.1.13.10 i ty [place].2.686 [place] [phone] [address] 2020-04-07 2020-04-07 Outpatient R KARI [facility] [id number] Univers 10:15:00 10:15:00 TANG [facility] 2020-04-06 2020-04-06 (TEL) STLMLC STLMLC [id number] Co mmon 00:00:00 00:00:00 Spirit - [facility]I [facility] 2020-03-30 2020-03-30 Outpatient Briseida [facility] [id number] Univers 10:00:00 10:00:00 BENITEZ [facility] 2020-03-30 2020-03-30 OFFICE STLMLC STLMLC [id number] Co mmon 00:00:00 00:00:00 VISIT Spirit ESTAB PT - CHI LEVEL 2 [facility] 2020-03-28 2020-03-28 OFFICE STLMLC STLMLC [id number] Co mmon 00:00:00 00:00:00 VISIT EST Spir it PT LEVEL 3 - CHI [facility] 2020-03-23 2020-03-23 (TEL) STLMLC STLMLC [id number] Co mmon 00:00:00 00:00:00 Spirit - [facility] 2020-03-16 2020-03-16 Outpatient R KARI [facility] [id number] Univers 14:15:00 14:15:00 TANG nichosergio [facility] 2020-03-16 2020-03-16 OFFICE STLMLC STLMLC [id number] Co mmon 00:00:00 00:00:00 VISIT Spirit ESTAB PT - CHI LEVEL 4 [facility] 2020-03-09 2020-03-09 Outpatient R KARI [facility] [id number] Univers 10:30:00 10:30:00 TANG nichosergio [facility] 2020-03-06 2020-03-06 [facility] 1.2.840.114 [id number] Univers 07:43:00 13:03:00 Encounter Tyler Askew 350.1.13.10 ity of [place].2.[place] [phone] [place] [id number] [place] 2020-03-03 2020-03-03 Laboratory Only, Adc Test [facility] 1.2.840. 114 [id number] Univers 09:13:26 09:28:26 Only Jules Gordon 350.1.13.10 ity of [place].2.686 [place] [phone] [place] [address] [place] 2020-03-03 2020-03-03 Outpatient R JULES GORDON [facility] [id number] Univers 09:00:00 09:00:00 ity [facility] 2020-03-02 2020-03-02 Outpatient [facility] [id number] Common 16:00:00 16:00:00 [address] [facility] 2020-03-01 2020-03-01 Outpatient [facility] [id number] Common 16:58:00 16:58:00 [address] [facility] 2020-02-29 2020-02-29 Outpatient [facility] [id number] Common 09:32:00 09:32:00 [address] [facility] 2020-02-29 2020-02-29 Orders Doctor BARBOUR 1.2.840.114 [id number] Univers 00:00:00 00:00:00 Only Unassigned, HECTOR 350.1.13.10 ity of [place] [facility] 4.2.7.2.686 João as [phone] [address] 2020-02-19 2020-02-19 Outpatient R [facility] [id number] Univers 12:20:00 12:20:00 ity [facility] 2020-02-19 2020-02-19 Outpatient Brazyonatan Chand [id number] Common 11:43:00 11:43:00 t [facility] Road [facility] 2020-02-18 2020-02-18 Outpatient Yann Lernert [id number] Common 14:30:00 14:30:00 t Specialty/U Sp rudy Specialty rology - CHI /Urology Clinic [facility] 2020-02-17 2020-02-17 Outpatient Yann Chand [id number] Common 11:30:00 11:30:00 t Specialty/U Sp rudy Specialty rology - [facility] /[facility] 2020-02-10 2020-02-10 Outpatient [facility] [id number] Univers 17:00:00 17:00:00 [facility] 2020-02-07 2020-02-07 Outpatient R [facility] [id number] Univers 10:00:00 10:00:00 BRAEDEN [facility] 2020-01-13 2020-01-13 Outpatient R [facility] [id number] Univers 09:45:00 09:45:00 CATALINA acharya o f [facility] 2020-01-10 2020-01-10 [facility] 1.2.840.114 [id number] Univers 07:03:50 09:20:00 Encounter Tyler Askew 350.1.13.10 ity [place] [facility] 4.2.7.2.[place] [phone] [address] 2020-01-10 2020-01-10 Orders Doctor ANGLE 1.2.840.114 [id number] Univers 00:00:00 00:00:00 Only Unassigned, HECTOR 350.1.13.10 ity of [place] [facility] 4.2.7.2.686 João as [phone] [address] 2020-01-07 2020-01-07 Laboratory Only, Adc Test [facility] 1.2.840. 114 [id number] Univers 08:46:30 09:01:30 Only Tyler Chang 350.1.13.1 0 ity of [place].2.686 [place] [phone] [address] 2020-01-07 2020-01-07 Outpatient R BERNARDO [facility] [id number] Univers 08:30:00 08:30:00 TYLER acharya [facility] 2020-01-07 2020-01-07 Orders Doctor BARBOUR 1.2.840.114 [id number] Univers 00:00:00 00:00:00 Only Unassigned, HECTOR 350.1.13.10 ity of [place] [facility] 4.2.7.2.686 [place]ão as [phone] [address] 2019-12-30 2019-12-30 Outpatient R DELROY [facility] [id number] Univers 11:00:00 11:00:00 CATALINA donnelly [facility] 2019-12-28 2019-12-28 Outpatient R RAMBO [facility] [id number] Univers 11:00:00 11:00:00 DENNYS donnelly [facility] 2019-12-24 2019-12-24 Outpatient Brazyonatan Lernert [id number] Common 09:32:00 09:32:00 Jack Robie [facility] it [facility] 2019-12-22 2019-12-22 Value Analyst Tommy Maria Lab Main [facility] 1.2.8 40.114 [id number] Univers 13:50:17 14:05:17 Visit Bernardo, Tyler Eleazar [place] 350.1.13.1 0 ity of [place] 4.2.7.2.686 [place] [facility] [phone] [address] 2019-12-22 2019-12-22 Outpatient Briseida CHANG [facility] [id number] Univers 14:00:00 14:00:00 TYLER ity of [facility] 2019-12-22 2019-12-22 Orders Doctor ANGLE 1.2.840.114 [id number] Univers 00:00:00 00:00:00 Only Unassigned, HECTOR 350.1.13.10 ity of [place] [facility] 4.2.7.2.686 João as [phone] [address] 2019-12-13 2019-12-13 Outpatient [facility] [id number] Common 11:45:00 11:45:00 t [facility] [address] [facility] 2019-12-01 2019-12-01 Outpatient [facility] [id number] Common 16:54:00 16:54:00 [address] [facility] 2019-11-25 2019-11-25 Outpatient [facility] [id number] Common 16:55:00 16:55:00 t [address] [facility] 2019-11-22 2019-11-22 Outpatient [facility] [id number] Common 11:38:00 11:38:00 t [address] [facility] 2019-11-19 2019-11-19 Outpatient [facility] 30 [id number] Common 16:25:00 16:25:00 t [facility] [address] [facility] 2019-11-19 2019-11-19 Outpatient Briseida PARKER [facility] [id number] Univers 09:15:00 09:15:00 CATALINA donnelly [facility] 2019-11-18 2019-11-18 Outpatient [facility] [id number] Common 16:23:00 16:23:00 t [address] [facility] 2019-11-18 2019-11-18 Outpatient [facility] [id number] Common 10:45:00 10:45:00 t [address] [facility] 2019-11-08 2019-11-08 Outpatient [facility] [id number] Common 14:04:00 14:04:00 t [facility] [address] [facility] 2019-11-05 2019-11-05 Outpatient [facility] [id number] Common 14:36:00 14:36:[address] [facility] 2019-11-01 2019-11-01 Outpatient [facility] 30 [id number] Common 11:35:00 11:35:00 t [address] [facility] 2019-10-27 2019-10-27 Outpatient [facility] 30 [id number] Common 13:30:00 13:30:00 t [address] [facility] 2019-10-26 2019-10-26 Outpatient [facility] [id number] Common 08:59:00 08:59:00 t [address] [facility] 2019-10-25 2019-10-25 Outpatient [facility] [id number] Common 08:37:00 08:37:00 t [address] [facility] 2019-10-20 2019-10-20 Telephone [facility] 1.2.840.114 [id number] Univers 00:00:00 00:00:00 Braeden Askew 350.1.13.10 i ty [place] 4.2.7.2.686 Nicho Lanza [phone] Tx dical nal [address] [place] [address] 2019-10-14 2019-10-14 Outpatient [facility] [id number] Common 15:00:00 15:00:00 t [address] [facility] 2019-10-12 2019-10-12 Outpatient [facility] [id number] Common 09:50:00 09:50:00 t [address] [facility] 2019-10-07 2019-10-07 [facility] [id number] Univers 13:00:00 13:00:00 BRAEDEN ity of [facility] 2019-10-05 2019-10-05 Sandra Hicks, Yue 1.2.675.946 [id number] Univers 00:00:00 00:00:00 Jamari Juarezy 350.1.13.10 it y of [facility] 4.2.7.2.686 [place] [phone] [address] 2019-10-04 2019-10-04 Outpatient R [facility] [id number] Univers 10:45:00 10:45:00 BRAEDEN ity of [facility] 2019-10-04 2019-10-04 Telemedici [facility] 1.2.840.114 [id number] Univers 08:05:56 08:20:56 ne Visit [facility] 350.1.13.10 ity of [place] 4[place]2.7.2.[place] [phone] [place] dic[address] 2019-10-04 2019-10-04 Yue Goodman 1.2.879.506 [id number] Univers 00:00:00 00:00:00 Jamari Young 350.1.13.10 it y of [facility] 4.2.7.2.686 [place] [phone] [address] 2019-09-30 2019-09-30 Telephone [facility] 1.2.840.114 [id number] Univers 00:00:00 00:00:00 [facility] 350.1.13.10 i ty of [place] 4[place]2.7.2.686 [place] [phone] [place] dic[address] 2019-09-28 2019-09-28 Telephone [facility] 1.2.840.114 [id number] Univers 00:00:00 00:00:00 [facility] 350.1.13.10 it y of [place] 4.2.7.2.686 [place] [phone] [facility] 2019-09-28 2019-09-28 Telephone [facility] 1.2.840.114 [id number] Univers 00:00:00 00:00:00 Braeden [place] 350.1.13.10 i ty of [place] 4.2.7.2.686 [place] [phone] [facility] 204 [facility] 2019-09-27 2019-09-27 Telephone [facility] 1.2.840.114 [id number] Univers 00:00:00 00:00:00 Braeden [place] 350.1.13.10 i ty of [place] 4.2.7.2.686 [place] [phone] [facility] 204 [facility] 2019-09-23 2019-09-23 Emergency [facility] 1.2.559.730 [id number] Univers 11:55:19 17:04:00 Umairjessa Askew 350.1.13.10 i ty of [place] 4[place]2.7.2.686 [place] [phone] [address] 2019-09-23 2019-09-23 Emergency X [facility] ERT [id number] Univers 11:55:19 17:04:00 UMAIR itsergio [facility] 2019-09-23 2019-09-23 [facility] 1.2.438.488 [id number] Univers 06:35:00 11:37:00 Encounter Braeden [place] 350.1.13.10 ity of [place]2.7.2.[place] [phone] [facility] [address] 2019-09-23 2019-09-23 Outpatient R [facility] KIERAN [id number] Univers 06:35:00 11:37:00 BRAEDEN ity of [facility] 2019-09-23 2019-09-23 Anesthesia Tang Messina [facility] 1.2.840.11 [id number] Univers 07:37:00 09:11:00 Leatha Johnson 350.1.13.10 ity of [place] 4.2.7.2.686 [place] [phone] [facility] 0[address] [place] 2019-09-23 2019-09-23 Orders Doctor ANGLE 1.2.840.114 [id number] Univers 00:00:00 00:00:00 Only Unassigned, HECTOR 350.1.13.10 ity of [place] [facility] 4.2.7.2.686 João as [phone] [facility] 009 [place] 2019-09-23 2019-09-23 Telephone Baljeet ANGLE 1.2.840.114 [id number] Univers 00:00:00 00:00:00 Braeden HECTOR 350.1.13.10 it y of HOSPITAL 4.2.7.2.686 João as [phone] [facility] 007 [place] 2019-09-20 2019-09-20 Telephone ANGLE Delong 1.2.840.114 [id number] Univers 00:00:00 00:00:00 Braeden HECTOR 350.1.13.10 it y of [facility] 4.2.7.2.686 João as [phone] [facility] 007 [place] 2019-09-19 2019-09-19 Telephone [facility] 1.2.840.114 [id number] Univers 00:00:00 00:00:00 Braeden [place] 350.1.13.10 i ty of [place] 4[place]2.7.2.686 [place] [phone] T[place] dic[address] 2019-09-17 2019-09-17 Outpatient [facility] [id number] Common 08:05:00 08:05:00 Tribunat [facility] it [facility] 2019-09-16 2019-09-16 [facility] 1.2.184.372 [id number] Univers 06:36:00 11:50:00 Encounter Braeden [place] 350.1.13.10 ity of [place] 4.2.7.2.686 [place] [id number] [place] [address] [place] 2019-09-16 2019-09-16 Outpatient R [facility] KIERAN [id number] Univers 06:36:00 11:50:00 BRAEDEN ity of [facility] 2019-09-16 2019-09-16 Orders Doctor ANGLE Appiah.2.840.114 [id number] Univers 00:00:00 00:00:00 Only Unassigned, HECTOR 350.1.13.10 ity of [place] [facility] 4.2.7.2.686 João as [phone] [facility] 009 [place] 2019-09-16 2019-09-16 Telephone Baljeet [facility] 1.2.840.114 [id number] Univers 00:00:00 00:00:00 Braedenurban YOUNG 350.1.13.10 it y of HOSPITAL 4.2.7.2.686 João as [phone] [facility] 007 [place] 2019-09-16 2019-09-16 [facility] 1.2.840.114 [id number] Univers 00:00:00 00:00:00 Braeden [place] 350.1.13.10 i ty of [place] 4.2.7.2.686 [place] [phone] Tx dical nal 204 [facility] 2019-09-15 2019-09-15 Telephone [facility] 1.2.840.114 [id number] Univers 00:00:00 00:00:00 Braedenurban Askew 350.1.13.10 i ty of [place] 4.2.7.2.686 [place] [phone] Tx dical nal 204 [facility] 2019-09-13 2019-09-13 Value Analyst Candace, 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 [facility] 1.2.8 40.114 [id number] Univers 13:33:09 13:48:09 Visit Braeden Delong 350.1.13.10 ity of [place] 4.2.7.2.[place] [phone] Tx dical nal 353 [facility] 2019-09-13 2019-09-13 Telemedici [facility] 1.2.840.114 [id number] Univers 08:41:39 08:56:39 ne Visit Braeden Askew 350.1.13.10 ity of [place] 4.2.7.2.686 [place] [phone] Tx dical nal 204 [facility] 2019-09-13 2019-09-13 Outpatient R BALJEET [facility] [id number] Univers 08:30:00 08:30:00 BRAEDEN ity of [facility] 2019-09-13 2019-09-13 Prep For Paulina [facility] 1.2.840.114 [id number] Univers 00:00:00 00:00:00 Surgery Livia Berkowitz Jamilah 350.1.13.10 ity of [place] 4.2.7.2.686 [place] [phone] Tx dical nal 377 [facility] 2019-09-10 2019-09-12 Outpatient X [facility] KELLEN [id number] Univers 07:57:26 14:20:00 AMALIA ity [facility] 2019-09-10 2019-09-12 Emergency EvFawad arias Yue 1.2.84 0.114 [id number] Univers 07:57:26 14:20:00 Zee Alonzo 350.1.13.10 ity of [facility] 4.2.7.2.6 86 [place] [phone] [facility] 095 [place] 2019-08-27 2019-08-27 Outpatient [facility] [id number] Common 14:30:00 14:30:00 t Specialty/U Sp rudy Specialty rology - [facility] /Urology Clinic [facility] 2019-08-23 2019-08-23 Outpatient R [facility] [id number] Univers 07:14:00 09:35:00 TYLER ity [facility] 2019-08-23 2019-08-23 Hospital Bernardo, [facility] 1.2.840.114 [id number] Univers 07:14:00 09:35:00 Encounter Tyler Askew 350.1.13.10 ity of [place] 4[place]2.7.2.[place] [phone] [facility] ical Center 071 [place] 2019-08-23 2019-08-23 Anesthesia Minerva Ba [facility] 1. 2.840.114 [id number] Univers 08:23:00 08:35:00 Stalin Schreiber 350.1.13.10 ity of [place] 4.2.7.2.686 [place] [phone] Med ical Center 020 [place] 2019-08-23 2019-08-23 Outpatient Briseida [facility] [id number] Univers 07:14:00 07:14:00 TYLER ity [facility] 2019-08-23 2019-08-23 Orders Doctor ANGLE 1.2.840.114 [id number] Univers 00:00:00 00:00:00 Only Unassigned, HECTOR 350.1.13.10 ity of [place] [facility] 4.2.7.2.686 João as [phone] [address] 2019-08-19 2019-08-19 Outpatient [facility] [id number] Common 11:00:00 11:00:00 t [employer] [address] [facility] 2019-08-19 2019-08-19 Orders Doctor BARBOUR 1.2.840.114 [id number] Univers 00:00:00 00:00:00 Only Unassigned, HECTOR 350.1.13.10 ity of [place] [facility] 4.2.7.2.686 João as [phone] [address] 2019-08-05 2019-08-05 Outpatient [facility] [id number] Common 09:15:00 09:15:00 t [employer] [address] [facility] 2019-08-03 2019-08-03 Outpatient [facility] [id number] Common 14:40:00 14:40:00 t [facility] [address] [facility] 2019-08-02 2019-08-02 Outpatient Briseida [facility] KIERAN [id number] Univers 07:03:40 09:10:00 TYLER ity of [facility] 2019-08-02 2019-08-02 [facility] 1.2.840.114 [id number] Univers 07:03:40 09:10:00 Encounter Tyler Askew 350.1.13.10 it[place] of [place] 4[place].2.[place] [phone] [facility] [address] [place] 2019-08-02 2019-08-02 Orders Doctor ANGLE 1.2.840.114 [id number] Univers 00:00:00 00:00:00 Only Unassigned, HECTOR 350.1.13.10 ity of [place] [facility] 4.2.7.2.686 João as [phone] [address] 2019-07-29 2019-07-29 Outpatient [facility] [id number] Common 13:23:00 13:23:00 [address] [facility] 2019-07-28 2019-07-28 Value Analyst Tommy Maria Lab Main [facility] 1.2.[id number] [facility] 14:09:44 14:24:44 Visit Tyler Chang S Jamilah 350.1.13.1 0 ity of [place] 4.2.7.2.686 [place] [phone] [facility] 353 [facility] 2019-07-28 2019-07-28 Orders Doctor BARBOUR 1.2.840.114 [id number] Univers 00:00:00 00:00:00 Only Unassigned, HECTOR 350.1.13.10 ity of [place] [facility] 4.2.7.2.686 João as [phone] [address] 2019-07-27 2019-07-27 Orders Doctor ANGLE 1.2.840.114 [id number] Univers 00:00:00 00:00:00 Only Unassigned, HECTOR 350.1.13.10 ity of [place] [facility] 4.2.7.2.686 João as [phone] [address] 2019-07-19 2019-07-19 Outpatient [facility] [id number] Common 13:59:00 13:59:00 [address] [facility] 2019-07-14 2019-07-14 Outpatient [facility] [id number] Common 13:18:00 13:18:00 t [address] [facility] 2019-07-06 2019-07-06 Outpatient [facility] [id number] Common 10:00:00 10:00:00 t [address] [facility] 2019-05-17 2019-05-17 Outpatient [facility] [id number] Common 13:30:00 13:30:00 t [address] [facility] 2019-03-30 2019-03-30 Outpatient [facility] [id number] Common 15:00:00 15:00:00 t Specialty/U Sp rudy Specialty rology [facility] /[facility] Clinic [facility] 2019-03-23 2019-03-23 Outpatient [facility] [id number] Common 08:47:00 08:47:00 t Specialty/U Sp rudy Specialty rology [facility] /[facility] 2019-03-22 2019-03-22 Outpatient [facility] [id number] Common 16:57:00 16:57:00 t [address] [facility] 2019-03-17 2019-03-17 Outpatient [facility] 27 [id number] Common 09:45:00 09:45:00 t [facility] [address] [facility] 2019-03-04 2019-03-04 Outpatient [facility] [id number] Common 11:00:00 11:00:00 t Specialty/U Sp rudy Specialty rology - [facility] /[facility]rology Clinic [facility] 2019-03-01 2019-03-01 Outpatient [facility] [id number] Common 11:00:00 11:00:00 t [address] [facility] 2019-02-23 2019-02-23 Outpatient [facility] [id number] Common 13:15:00 13:15:00 t [address] [facility] 2019-02-17 2019-02-17 Prep For Paulina [facility] [id number] 00:00:00 00:00:00 Surgery Livia Askew [id number] [facility] [place] [id number] Nicho Lanza [phone] [address] 2019-02-16 2019-02-16 Office José Miguel CAJOSE ANTONIO [id number] [facility] 15:16:30 15:46:30 Visit Ashley Askew [id number] i ty [facility] [id number] [place] [phone] [place]ical [place] [address] [facility] 2019-02-15 2019-02-15 [facility] [id number] Common 09:54:00 09:54:00 t Specialty/U Sp rudy Specialty rology - [facility] 2019-02-08 2019-02-08 [facility] [id number] Common 13:00:00 13:00:00 t Specialty/U Sp rudy Specialty rology - [facility] 2019-02-01 2019-02-01 [facility] [id number] Common 14:15:00 14:15:00 t Specialty/U Sp rudy Specialty rology - [facility] 2019-01-27 2019-01-27 [id number] Common 10:00:00 10:00:[address] [facility] 2019-01-15 2019-01-15 Office [facility] [id number] 112 Univers 09:51:11 10:51:11 Visit Catalina Askew [id number] [place] [id number] [phone] [place] dical [place]al 205 [facility] 2018-12-08 2018-12-08 [facility] 26 [id number] Common 13:00:00 13:00:00 [address] [facility] 2018-12-07 2018-12-07 [facility] 26 [id number] Common 16:17:00 16:17:00 [address] [facility] 2018-12-03 2018-12-03 [facility] 25 [id number] Common 09:15:00 09:15:00 [address] [facility] 2018-10-19 2018-10-19 [facility] 25 [id number] Common 16:30:00 16:30:00 [address] [facility] 2018-10-01 2018-10-01 [facility] 25 [id number] Common 13:52:00 13:52:00 [address] [facility] 2018-09-14 2018-09-14 [facility] 24 [id number] Common 08:34:00 08:34:00 [address] [facility] 2018-09-10 2018-09-10 [facility] 24 [id number] Common 14:45:00 14:45:00 [address] [facility] 2018-08-26 2018-08-26 [facility] 24 [id number] Common 16:26:00 16:26:00 [address] [facility] 2018-08-25 2018-08-25 [facility] 23 [id number] Common 10:00:00 10:00:00 [address] [facility] 2018-08-19 2018-08-19 [facility] 24 [id number] Common 08:22:00 08:22:00 [address] [facility] 2018-07-16 2018-07-16 [facility] 23 [id number] Common 13:00:00 13:00:00 [address] [facility] 2018-03-25 2018-03-25 [facility] 15 [id number] Common 10:15:00 10:15:00 [address] [facility] 2018-02-03 2018-02-03 [facility] 15 [id number] Common 09:02:00 09:02:00 [address] [facility] 2018-01-23 2018-01-23 [facility] 15 [id number] Common 10:00:00 10:00:00 [address] [facility] 2017-12-23 2017-12-23 [facility] 14 [id number] Common 10:30:00 10:30:00 [address] [facility] 2017-12-16 2017-12-16 [facility] 14 [id number] Common 15:15:00 15:15:00 [address] [facility] 2017-11-04 2017-11-04 [facility] 13 [id number] Common 10:00:00 10:00:00 [address] [facility] 2016-05-14 2016-05-14 Outpatient Raju_P [facility] [id number] [place] 03:16:00 03:16:00 [facility] 2014-08-22 2014-08-22 Outpatient Lakeshia CHANG [facility] [id number] [facility] 12:43:07 23:00:00 [facility] Results Test Description Test Time Test Comments Results Result Comments Source STREP A RAPID 2022-07-01 00:00:00 Result POCT GLUCOSE (AUTOMATED) 2022-01-21 12:01:12 Test Item Value Reference Range Interpretation Comme nts POCT GLU (test code = 2548685450) 82 mg/dL 70-110 Lab Interpretation (test code = 31758-6) [facility] 12:01:12 Test Item Value Reference Range Interpretation Comments POCT GLU (test code = 3926441729) 82 mg/dL 70-110 Lab Interpretation (test code = Normal 16959-1) [facility] GLUCOSE(AGE >30DAYS)2022-01-21 11:50:00 Test Item Value Reference Range Interpretation Comments POCT Glu (age>30days) (test code = 82 mg/dL 70-110 3342) [facility] GLUCOSE(AGE >30DAYS)2022-01-21 11:50:00 Test Item Value Reference Range Interpretation Comments POCT Glu (age>30days) (test code = 82 mg/dL 70-110 3342) [facility], [facility]PLIFIED, [id number] 00:00:00 Test Item Value Reference Range Interpretation Comments GONORRHEA, NAAT (test code = 25370) NEGATIVE CHLAMYDIA, NAAT (test code = 45593) NEGATIVE GC AND CHLAMYDIA, AMPLIFIED, [id number] 00:00:00 Test Item Value Reference Range Interpretation Comments GONORRHEA, NAAT (test code = 56365) NEGATIVE CHLAMYDIA, NAAT (test code = 72397) NEGATIVE VAGINAL PATHOGENS DNA [id number] 00:00:00 Test Item Value Reference Range Interpretation Comments THUY SPECIES (test code = ) NEGATIVE G. VAGINALIS (test code = 89326) POSITIVE T. VAGINALIS (test code = 66638) NEGATIVE HIV AB/AG COMBO RFLX [id number] 00:00:00 Test Item Value Reference Range Interpretation Comments HIV 1/2 4TH GEN, RFLX CONF (test NON-REACTIVE code = 3514) VAGINAL PATHOGENS DNA [id number] 00:00:00 Test Item Value Reference Range Interpretation Comments THUY SPECIES (test code = ) NEGATIVE G. VAGINALIS (test code = 58840) POSITIVE T. VAGINALIS (test code = 84784) NEGATIVE [id number] 00:00:00 Test Item Value Reference Range Interpretation Comments RPR RESULT (test code = NON-REACTIVE 3501) RPR TITER (test code = 3500) NOT INDIC. TITER [id number] 00:00:00 Test Item Value Reference Range Interpretation Comments RPR RESULT (test code = NON-REACTIVE 3501) RPR TITER (test code = 3500) NOT INDIC. TITER [id number] 00:00:00 Test Item Value Reference Range Interpretation Comments RPR RESULT (test code = NON-REACTIVE 3501) RPR TITER (test code = 3500) NOT INDIC. TITER [id number] 00:00:00 Test Item Value Reference Range Interpretation Comments TSH, THIRD GENERATION (test code 1.090 UIU/ML = 2821) [id number] 00:00:00 Test Item Value Reference Range Interpretation Comments TSH, THIRD GENERATION (test code 1.090 UIU/ML = 2821) [id number] 00:00:00 Test Item Value Reference Range Interpretation Comments TSH, THIRD GENERATION (test code 1.090 UIU/ML = 2821) CBC W/AUTO [id number] 00:00:00 Test Item Value Reference Range Interpretation [...] NUCLEATED RBCS (test code = 0.00 K/UL 46882) CBC W/AUTO [id number] 00:00:00 Test Item Value Reference Range Interpretation [...] NUCLEATED RBCS (test code = 0.00 K/UL 54351) CBC W/AUTO [id number] 00:00:00 Test Item Value Reference Range Interpretation [...] NUCLEATED RBCS (test code = 0.00 K/UL 35793) HIV AB/AG COMBO RFLX [id number] 00:00:00 Test Item Value Reference Range Interpretation Comments HIV 1/2 4TH GEN, RFLX CONF (test NON-REACTIVE code = 3514) CULTURE, [id number] 00:00:00 Test Item Value Reference Range Interpretation Comments CULTURE, URINE (test SPECIMEN NUMBER: code = 17729) [id number] CULTURE, [id number] 00:00:00 Test Item Value Reference Range Interpretation Comments CULTURE, URINE (test SPECIMEN NUMBER: code = 22079) [id number] VAGINAL PATHOGENS DNA [id number] 00:00:00 Test Item Value Reference Range Interpretation Comments THUY SPECIES (test code = ) NEGATIVE G. VAGINALIS (test code = 12391) POSITIVE T. VAGINALIS (test code = 81995) NEGATIVE VAGINAL PATHOGENS DNA [id number] 00:00:00 Test Item Value Reference Range Interpretation Comments THUY SPECIES (test code = ) NEGATIVE G. VAGINALIS (test code = 41232) POSITIVE T. VAGINALIS (test code = 54793) NEGATIVE LIPID PROFILE (CORONARY RISK)2018-08-01 08:02:00 Test [...] 0-189 mg/dL VERY HIGH.........>/ = 190 mg/dL [id number] 08:02:00 Test Item Value Reference Range Interpretation [...] LDL (test MG/DL 0-99 code = LDL) [id number] 07:51:00 Test Item Value Reference Range Interpretation Comments MAGNESIUM (test code = MAG) 2.0 MG/DL 1.6-2.3 N PROTHROMBIN [id number] 07:37:00 Test Item Value Reference Range Interpretation [...] myocar dial infarction. 2.0 - 3.0 3. [employer] al prosthesis hear t valves, recurre nt systemic emboli sm. 3.0 - 4.5 PTT [id number] 07:37:00 Test Item Value Reference Range Interpretation Comments PTT ACTIVATED (test code = APTT) 26.7 SECONDS 22.0-33.0 N [id number] 01:26:00 Test Item Value Reference Range Interpretation Comments TROPONIN-I (test code = TROPI) < 0.012 NG/ML 0.012-0.033 L HEPATIC FUNCTION [id number] 18:44:00 Test Item Value Reference Range Interpretation [...] 77 UNITS/L 38-126 N ALKP) BASIC METABOLIC [id number] 18:15:00 Test Item Value Reference Range Interpretation [...] code = 8.9 MG/DL 8.4-10.2 N CA) [id number] 18:15:00 Test Item Value Reference Range Interpretation Comments TROPONIN-I (test code = TROPI) < 0.012 NG/ML 0.012-0.033 L BASIC METABOLIC [id number] 18:03:00 Test Item Value Reference Range Interpretation [...] code = 8.9 MG/DL 8.4-10.2 N CA) [id number] 18:03:00 Test Item Value Reference Range Interpretation Comments TROPONIN-I (test code = TROPI) NG/ML 0.0-0.045 CBC W/O [id number] 17:39:00 Test Item Value Reference Range Interpretation [...] 0.0 K/mm3 0.0-0.1 N NRBC#) CBC W/AUTO [id number] 00:00:00 Test Item Value Reference Range Interpretation [...] code = 1015) 170 K/UL CBC W/AUTO [id number] 00:00:00 Test Item Value Reference Range Interpretation [...] code = 1015) 170 K/UL CBC W/AUTO [id number] 00:00:00 Test Item Value Reference Range Interpretation [...] COUNT (test code = 1015) 170 K/UL COMPREHENSIVE METABOLIC [id number] 00:00:00 Test Item Value Reference Range Interpretation Comments GLUCOSE (test code = 2217) 81 MG/DL BUN (test code = 2208) 14 MG/DL CREATININE (test code = 2214) 0.76 MG/DL eGFR AMER. (test code 100 ML/MIN/1.73 = 02549) eGFR NON- AMER. (test 86 ML/MIN/1.73 code = 97912) CALC BUN/CREAT (test code = 18 RATIO 2235) SODIUM (test code = 2231) 143 MEQ/L POTASSIUM (test code = 2228) 3.8 MEQ/L CHLORIDE (test code = 2215) 103 MEQ/L CARBON DIOXIDE (test code = 22 MEQ/L 2206) CALCIUM (test code = 2209) 9.3 MG/DL [...] code = 2219) 12 U/L COMPREHENSIVE METABOLIC [id number] 00:00:00 Test Item Value Reference Range Interpretation Comments GLUCOSE (test code = 2217) 81 MG/DL BUN (test code = 2208) 14 MG/DL CREATININE (test code = 2214) 0.76 MG/DL eGFR AMER. (test code 100 ML/MIN/1.73 = 22966) eGFR NON- AMER. (test 86 ML/MIN/1.73 code = 16251) CALC BUN/CREAT (test code = 18 RATIO [...] CALC GLOBULIN (test code = 2.6 G/DL 224) CALC A/G RATIO (test code = 1.8 RATIO 2234) BILIRUBIN, TOTAL (test code = 1.3 MG/DL 2206) ALKALINE PHOSPHATASE (test 82 U/L code = 2204) AST (test code = 2218) 16 U/L ALT (test code = 2219) 12 U/L LIPID [id number] 00:00:00 Test Item Value Reference Range Interpretation Comments CHOLESTEROL (test code = 2210) 189 MG/DL TRIGLYCERIDES (test code = 2232) 148 MG/DL HDL CHOLESTEROL (test code = 2220) 70 MG/DL CALC LDL CHOL (test code = 2237) 89 MG/DL RISK RATIO LDL/HDL (test code = 1.28 RATIO 2238) LIPID [id number] 00:00:00 Test Item Value Reference Range Interpretation Comments CHOLESTEROL (test code = 2210) 189 MG/DL TRIGLYCERIDES (test code = 2232) 148 MG/DL HDL CHOLESTEROL (test code = 2220) 70 MG/DL CALC LDL CHOL (test code = 2237) 89 MG/DL RISK RATIO LDL/HDL (test code = 1.28 RATIO 2238) HEMOGLOBIN [id number] 00:00:00 Test Item Value Reference Range Interpretation Comments HEMOGLOBIN A1c (test code = 12429) 5.2 % HEMOGLOBIN [id number] 00:00:00 Test Item Value Reference Range Interpretation Comments HEMOGLOBIN A1c (test code = 15796) 5.2 % HEMOGLOBIN [id number] 00:00:00 Test Item Value Reference Range Interpretation Comments HEMOGLOBIN A1c (test code = 98781) 5.2 % THYROID II PROFILE (T3U, T4, [...] = 2821) 1.5 UIU/ML VITAMIN D, 25 [id number] 00:00:00 Test Item Value Reference Range Interpretation Comments VITAMIN D, 25 OH (test code = 4958) 8 NG/ML VITAMIN D, 25 [id number] 00:00:00 Test Item Value Reference Range Interpretation Comments VITAMIN D, 25 OH (test code = 4958) 8 NG/ML VAGINAL PATHOGENS DNA PANEL [ADDED][id number] 00:00:00 Test Item Value Reference Range Interpretation Comments THUY SPECIES (test code = ) NEGATIVE G. VAGINALIS (test code = 50111) NEGATIVE T. VAGINALIS (test code = 04654) NEGATIVE VAGINAL PATHOGENS DNA PANEL [ADDED]2016-07-11 00:00:00 Test Item Value Reference Range Interpretation Comments THUY SPECIES (test code = 01257) NEGATIVE G. VAGINALIS (test code = 12819) NEGATIVE T. VAGINALIS (test code = 57365) NEGATIVE CBC W/AUTO [id number] 00:00:00 Test Item Value Reference Range Interpretation [...] code = 1015) 197 K/UL CBC W/AUTO [id number] 00:00:00 Test Item Value Reference Range Interpretation [...] code = 1015) 197 K/UL CBC W/AUTO [id number] 00:00:00 Test Item Value Reference Range Interpretation [...] COUNT (test code = 1015) 197 K/UL HEMOGLOBIN [id number] 00:00:00 Test Item Value Reference Range Interpretation Comments HEMOGLOBIN A1c (test code = 99994) 5.7 % HEMOGLOBIN [id number] 00:00:00 Test Item Value Reference Range Interpretation Comments HEMOGLOBIN A1c (test code = 58641) 5.7 % HEMOGLOBIN [id number] 00:00:00 Test Item Value Reference Range Interpretation Comments HEMOGLOBIN A1c (test code = 16185) 5.7 % COMPREHENSIVE METABOLIC [id number] 00:00:00 Test Item Value Reference Range Interpretation Comments GLUCOSE (test code = 2217) 90 MG/DL BUN (test code = 2208) 19 MG/DL CREATININE (test code = 2214) 0.75 MG/DL eGFR AMER. (test code 101 ML/MIN/1.73 = 38907) eGFR NON- AMER. (test 87 ML/MIN/1.73 code = 62026) CALC BUN/CREAT (test code = 25 RATIO 2235) SODIUM (test code = 2231) 143 MEQ/L POTASSIUM (test code = 2228) 3.8 MEQ/L CHLORIDE (test code = 2215) 106 MEQ/L CARBON DIOXIDE (test code = 20 MEQ/L 6) CALCIUM (test code = 2209) 9.0 MG/DL [...] code = 2219) 15 U/L COMPREHENSIVE METABOLIC [id number] 00:00:00 Test Item Value Reference Range Interpretation Comments GLUCOSE (test code = 2217) 90 MG/DL BUN (test code = 2208) 19 MG/DL CREATININE (test code = 2214) 0.75 MG/DL eGFR AMER. (test code 101 ML/MIN/1.73 = 25991) eGFR NON- AMER. (test 87 ML/MIN/1.73 code = 38527) CALC BUN/CREAT (test code = 25 RATIO 2235) SODIUM (test code = 2231) 143 MEQ/L POTASSIUM (test code = 2228) 3.8 MEQ/L CHLORIDE (test code = 2215) 106 MEQ/L CARBON DIOXIDE (test code = 20 MEQ/L 220) CALCIUM (test code = 2209) 9.0 MG/DL PROTEIN, TOTAL (test code = 6.7 G/DL 222) ALBUMIN (test code = 2201) 4.3 G/DL CALC GLOBULIN (test code = 2.4 G/DL 2240) CALC A/G RATIO (test code = 1.8 RATIO 2234) BILIRUBIN, TOTAL (test code = 1.1 MG/DL 220) ALKALINE PHOSPHATASE (test 87 U/L code = 2204) AST (test code = 2218) 18 U/L ALT (test code = 2219) 15 U/L ACUTE HEPATITIS [id number] 00:00:00 Test Item Value Reference Range Interpretation Comments HEPATITIS A IgM (test code = NON-REACTIVE 14423) HEPATITIS B CORE IgM (test code NON-REACTIVE = 4644) HEPATITIS B SURF AG (test code = NON-REACTIVE 2739) HEPATITIS C ANTIBODY (test code NON-REACTIVE = 4675) INTERPRETATION HEPATITIS A: (NOTE) (test code = 2552) INTERPRETATION HEPATITIS B: (NOTE) (test code = 17368) INTERPRETATION HEPATITIS C: (NOTE) (test code = 01899) ACUTE HEPATITIS [id number] 00:00:00 Test Item Value Reference Range Interpretation Comments HEPATITIS A IgM (test code = NON-REACTIVE 56399) HEPATITIS B CORE IgM (test code NON-REACTIVE = 4644) HEPATITIS B SURF AG (test code = NON-REACTIVE 2739) HEPATITIS C ANTIBODY (test code NON-REACTIVE = 4675) INTERPRETATION HEPATITIS A: (NOTE) (test code = 2552) INTERPRETATION HEPATITIS B: (NOTE) (test code = 20233) INTERPRETATION HEPATITIS C: (NOTE) (test code = 57267) [id number] 00:00:00 Test Item Value Reference Range Interpretation Comments AMYLASE (test code = 2205) 69 U/L [id number] 00:00:00 Test Item Value Reference Range Interpretation Comments LIPASE (test code = 2057) 16 U/L [id number] 00:00:00 Test Item Value Reference Range Interpretation Comments LIPASE (test code = 2057) 16 U/L [id number] 00:00:00 Test Item Value Reference Range Interpretation Comments LIPASE (test code = 2057) 16 U/L [id number] 00:00:00 Test Item Value Reference Range Interpretation Comments AMYLASE (test code = 5) 69 U/L COMPREHENSIVE METABOLIC [id number] 00:00:00 Test Item Value Reference Range Interpretation Comments GLUCOSE (test code = 2217) 116 MG/DL BUN (test code = 8) 15 MG/DL CREATININE (test code = 2214) 0.64 MG/DL eGFR AMER. (test code 114 ML/MIN/1.73 = 60964) eGFR NON- AMER. (test 98 ML/MIN/1.73 code = 33709) CALC BUN/CREAT (test code = 23 RATIO 5) SODIUM (test code = 2231) 141 MEQ/L POTASSIUM (test code = 2228) 3.8 MEQ/L CHLORIDE (test code = 2215) 102 MEQ/L CARBON DIOXIDE (test code = 22 MEQ/L 2205) CALCIUM (test code = 2209) 9.7 MG/DL [...] (test code = 2219) 10 U/L HEMOGLOBIN [id number] 00:00:00 Test Item Value Reference Range Interpretation Comments HEMOGLOBIN A1c (test code = 36083) 5.7 % HEMOGLOBIN [id number] 00:00:00 Test Item Value Reference Range Interpretation Comments HEMOGLOBIN A1c (test code = 73706) 5.7 % HEMOGLOBIN [id number] 00:00:00 Test Item Value Reference Range Interpretation Comments HEMOGLOBIN A1c (test code = 22171) 5.7 % [id number] 00:00:00 Test Item Value Reference Range Interpretation Comments TSH (test code = 2821) 1.8 UIU/ML [id number] 00:00:00 Test Item Value Reference Range Interpretation Comments TSH (test code = 2821) 1.8 UIU/ML [id number] 00:00:00 Test Item Value Reference Range Interpretation Comments TSH (test code = 2821) 1.8 UIU/ML COMPREHENSIVE METABOLIC [id number] 00:00:00 Test Item Value Reference Range Interpretation Comments GLUCOSE (test code = 2217) 116 MG/DL BUN (test code = 2208) 15 MG/DL CREATININE (test code = 2214) 0.64 MG/DL eGFR AMER. (test code 114 ML/MIN/1.73 = 89870) eGFR NON- AMER. (test 98 ML/MIN/1.73 code = 03934) CALC BUN/CREAT (test code = 23 RATIO [...] 2240) CALC A/G RATIO (test code = 1.7 RATIO 2234) BILIRUBIN, TOTAL (test code = 0.7 MG/DL 220) ALKALINE PHOSPHATASE (test 88 U/L code = 2204) AST (test code = 2218) 15 U/L ALT (test code = 2219) 10 U/L POC, COVID 19 Antigen + Flu by SofiaPOC, COVID 19 Antigen + Flu by Jackie Notes Date/Time Note Provider Source 2018-08-01 19:45:00-00:00 [id number] [address] PATIENT NAME: TOSHIA BARONE ADMIT DATE: 9 ACCOUNT NO: [id number] ROOM NO: Z.409 AGE: 63 REPORT TYPE: DISCHARGE SUMMARY REPORT SEX: F ADMITTING PHYSICIAN:Thalia Jeffries MD ATTENDING PHYSICIAN:Thalia Jeffries MD ADMISSION DATE: 07/30/2018 DISCHARGE DATE: 08/01/2018 CHIEF COMPLAINT: Chest pain. OTHER DIAGNOSES: 1. History of coronary artery disease. 2. Chronic obstructive pulmonary disease. 3. Depression. 4. Mood disorder. 5. Gastroesophageal reflux disease, gastritis. 6. History of transient ischemic attack. 7. Chronic pain. 8. Dyslipidemia, thyroid disorder, and venous th romboembolism. PAST SURGICAL HISTORY: Previous history of hyste rectomy and left upper lobe removal. No cancer. CONSULTANTS: Dr. Cruz. PROCEDURES: Cardiac catheterization. HISTORY OF PRESENT ILLNESS: This is a 63-year-ol d female who was admitted to the hospital with persistent pain. The patient was seen in [place] because of her history of coronary artery disease and re current chest pain. She was admitted and cardiac catheterization was planned as previously for Friday. Her echocardiogram showed an EF of 60% to 64% with wall motion, normal diastolic dysfunction. The patient had a CT scan done in [facility] which suggested there is a 11 mm nodule in the left uppe r lobe that requires further followup. Today, the patient had a cardiac cath done by Dr Ana Cruz, which did not show any cardiac disease. The patient is doing otherw ise well and she will be discharged home. She will follow up with Dr. Collins who is a epic trainer. He has seen the patient i n the past and the patient is aware of him and will follow up with him regardin g lung nodule. She was given a copy of it as well. EKG shows normal sinus rhythm. The p atdickson is seen and examined today. DISCHARGE MEDICATIONS: Please refer to the AUG f or discharge medications. DIET: As instructed. ACTIVITY: As instructed. PATIENT NAME: TOSHIA BARONE 5531 More than 30 2 minutes spent on the discharge summary of the patient. Uqpm-xy-urdp done on the day of discharge and [facility] condition remains stable. Dictated By: Thalia Jeffries MD WT: DS:JALEN/TWYLA/SACHIN Conf#: [id number]/DID#: [id number] Authenticated and Edited by Thalia Jeffries MD On 08/02/18 9:25:41 PM Electronically Signed by Thalia Jeffries MD on at 2129 PATIENT NAME: TOSHIA BARONE 5531 2018-08-01 09:33:00-00:00 [id number] [place] [address] PATIENT NAME: TOSHIA BARONE ADMIT DATE: 9 ACCOUNT NO: [id number] ROOM NO: Z.[facility] AGE: 63 REPORT TYPE: CARDIAC CATHETERIZATION REPORT SEX: F ADMITTING PHYSICIAN:Thalia Jeffries MD ATTENDING PHYSICIAN:Thalia Jeffries MD PROCEDURE DATE: 08/01/2018 INTERIOR DESIGN COORDINATOR: Geremias Cruz MD TITLE OF THE PROCEDURE: Left heart catheterizati on. INDICATION FOR THE PROCEDURE: Chest pain, possib le unstable angina, coronary artery disease, previous right coronary artery s tent. ESTIMATED BLOOD LOSS: Minimal. COMPLICATIONS: None. CONTRAST: 50 mL. ANESTHESIA: Conscious sedation with Versed and f entanyl and 1% lidocaine for local anesthesia. FINAL DIAGNOSES: Patent right coronary artery st ent. Nonobstructive coronary artery disease. RECOMMENDATION: Medical therapy. PROCEDURE IN DETAIL: After informed consent, the patient was brought to the cardiac catheterization lab in a stable fasting nonsedated state. She was prepped and draped in the usual sterile fashion. After conscious sedation, 1% lidocaine was administered to the right common f emoral artery area for local anesthesia. A 6-Dutch sheath was placed in the right common femoral artery using standard techniques and fluoroscop y. After heparinization, left coronary angiogram showed 20% mid LAD plaquing. The rest of the left system had no angiographic disease. Right coronary angiogram s howed a patent stent in the proximal and mid vessel, 30% proximal pl aquing before the stent and a dominant right coronary artery. Left ventricular angiogra m showed ejection fraction of 65%, left ventricular end-di astolic pressure of 20, no wall motion abnormalities or aortic valve gradient. The right groi n was sealed using Vascade. There were no complications. The patient tolerated the proc edure well. She was transferred back to the holding area for observation to be discharged later on today on medical therapy and risk factor modific ation. Dictated By: Geremias Cruz MD WT: CATH:SHANNAN/GARY/SACHIN PATIENT NAME: TOSHIA BARONE 5531 Conf#: [id number]/DID#: [id number] Authenticated by Geremias Cruz MD On 02/2019 11:31:20 AM at 1131 PATIENT NAME: TOSHIA BARONE 5531 2018-08-01 08:06:00-00:00 [facility] ([facility]) Cardiology Progress Note REPORT#:[id number] REPORT STATUS: Signed DATE:08/01/18 TIME: 805 PATIENT: TOSHIA BARONE UNIT #: [id number] ROOM/BED: [address] : 57 AGE: 63 SEX: F ATTEND: Pj Jeffries i, MD ADM AUTHOR: Geremias Cruz MD * ALL edits or amendments must be made on the [employer]/computer document * Subjective Chief Complaint: CP HPI: continues with CP Patient reports: Yes: chest pain, shortness of breath. No: palpit ations, swelling. Nursing reports: No: complaints. Objective General VS/I O: 24 hour I O ending at 0700: 08/01 0700 07/31 1900 Intake Total 480 Output Total Balance 480 Intake, Oral 480 Vital Signs: Date Time Temp Pulse Resp B/P B/P Pulse O2 O2 F low FiO2 Mean Ox Delivery Rate 08/01 0414 97.9 56 16 137/83 100.9 100 08/01 0041 98.1 65 16 136/76 96.2 97 07/31 1946 98.2 66 16 133/76 95.2 98 07/31 1731 97.7 66 18 118/70 86.2 98 Room air 07/31 1230 97.6 62 18 113/59 77 99 Room air Medications: Active Meds + DC'd Last 24 Hrs Influenza Virus Vaccine 60 MCG ONCE ONE IM Pneumococcal Polysaccharide Vaccine 0.5 ML ONCE ONE IM Fentanyl Citrate 0 .STK-MED ONE .ROUTE (DC) Heparin Sodium/Sodium Chloride 1,000 ML .STK-MED ONE IV (DC) Iopamidol 0 .STK-MED ONE .ROUTE (DC) Lidocaine 0 .STK-MED ONE .ROUTE (DC) Midazolam HCl 0 .STK-MED ONE .ROUTE (DC) Aspirin 0 .STK-MED ONE PO (DC) Clopidogrel Bisulfate 0 .STK-MED ONE PO (DC) Diazepam 0 .STK-MED ONE PO (DC) Diphenhydramine HCl 0 .STK-MED ONE PO (DC) Aspirin 325 MG NOW ONE PO (DC) Clopidogrel Bisulfate 75 MG ONCE ONE PO (DC) Diazepam 5 MG ONCE ONE PO (DC) Diphenhydramine HCl 25 MG ONCE ONE PO (DC) Sodium Chloride 1,000 ML Q10H IV Ondansetron HCl 4 MG Q6H PRN PRN IV Aspirin 81 MG DAILY PO Atorvastatin Calcium 10 MG BEDTIME PO Docusate Sodium 100 MG BID PO Melatonin 3 MG BEDTIME PO Albuterol/Ipratropium 3 ML RTQ6H INH Acetaminophen 650 MG Q6H PRN PRN PO Enoxaparin Sodium 40 MG Q24H SUBQ Nitroglycerin 0.4 MG Q5M PRN PRN SL Morphine Sulfate 4 MG Q3H PRN PRN IV (DC) Ondansetron HCl 4 MG Q8H PRN PRN IV (DC) Physical Exam General appearance: alert, awake, oriented, no a cute distress, pleasant, conversational, mental status normal Head/Eyes: atraumatic, normocephalic, PERRLA ENT: moist mucosal membranes Neck: full range of motion, supple/no meningismus, no bruit/NL carotids, no JVD, no masses or swelling Cardiovascular: CV assessment: regular rate and rhythm, BP puls es = bilaterally Murmur assessment: II/ KIMBERLY LLSB Respiratory: clear to auscultation, no distress Abdomen: soft, non-tender, no mass/organomegaly, no pulsatile mass Upper extremity: UE assessment: no edema, 2+ radial pulse Lower extremity: LE assessment: no edema, 2+ peripheral pulses Musculoskeletal: full range of motion 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 2 Laboratory Tests 08/01 535 Chemistry Magnesium (1.6 - 2.3 MG/DL) 2.0 Laboratory Tests 08/01 535 Coagulation APTT (22.0 - 33.0 SECONDS) 26.7 Results: labs reviewed, vital signs stable, echo personally reviewed, EKG personally reviewed, rhythm personally rev'd, x-ray personally reviewed, current med profile rev'd EKG Interpretation: normal sinus rhythm Telemetry Interpretation: SR Treatment Prophylaxis Treatment Prophylaxis Wiggins documentation: The data below has been impo rted from nursing documentation. Any exceptions have been noted below under Provider comments. _ Nursing Documentation Date wiggins inserted: Date wiggins discontinued: _ Provider comments: [] Diagnosis, Assessment Plan Problem List/A P: 1. Chest pain 2. Depression Free Text A P: Impression: CP/Angina CAD, old RCA stent Dyspnea HTN HLP MR COD Hx of PE Recommendations: L CATH poss PCI this am Risks/benefits explained in detail, pt willing to proceed. same Med Rx Orders: Procedure Date/time Status EKG 08/01 615 Active CATHETERIZATION 08/01 06 Active PROTHROMBIN TIME 08/01 0500 Complete MAGNESIUM 08/01 0500 Complete LIPID PROFILE (CORONARY RISK) 08/01 0500 Comple te PTT ACTIVATED 08/01 050 Complete Clip Prep 07/31 1808 Active Code status: full code Plan discussed with: patient, family, admitting physician, patient care team, nurse Electronically Signed by Geremias Cruz MD on 0 08/01/18 at 0904 RPT #:[id number] END OF REPORT 2018-08-01 07:50:00-00:00 [id number] [address] PATIENT NAME: TOSHIA BARONE ADMIT DATE: 9 ACCOUNT NO: [id number] [facility] AGE[facility] 63 REPORT TYPE: ELECTROCARDIOGRAM SEX: F ADMITTING PHYSICIAN:Thalia Jeffries MD ATTENDING PHYSICIAN:Thalia Jeffries MD Order: [id number] Test Reason : CAD Test Date/Time Stamp: Sat Aug 01 2018 07:50:16 Blood Pressure : / mmHG Vent. Rate : 064 BPM Atrial Rate : 064 BPM P-R Int : 130 ms QRS Dur : 072 ms QT Int : 442 ms P-R-T Axes : 041 046 032 degree s QTc Int : 455 ms Normal sinus rhythm Normal ECG No previous ECGs available Confirmed by GEREMIAS CRUZ ([id number]) on 08/01/2018 1 1:38:20 AM Referred By: Thalia Jeffries Confirmed by:GEREMIAS GRAY at 1138 PATIENT NAME: TOHSIA BARONE [id number] 2018-07-31 16:43:00-00:00 [id number] [place] [address] PATIENT NAME: TOSHIA BARONE ADMIT DATE: 9 ACCOUNT NO: [id number] ROOM NO: SYLVIA AGE: 63 REPORT TYPE: ECHOCARDIOGRAM SEX: F ADMITTING PHYSICIAN:Thalia Jeffries MD ATTENDING PHYSICIAN:Thalia Jeffries MD *[facility]* [address] [place] [address] Transthoracic Echocardiogram Patient: Toshia Barone Study Date: 07/31/2018 BP: 125 / 64 Location: [facility] URN: [id number] 531 : 1955 Age: 63 Height: 65 in / 165.1 cm Gender: F Weight: 164 .6 lb / 74.8 kg BMI/BSA: 27.5 kg/m 2 / 1.87 m 2 *Ordering Physician: * Geremias Cruz MD *Interpreting Physician: * Geremias Cruz MD *Vacuum Drier Tender: * Sasha Zabala [facility] Indications: CAD. Study data: Transthoracic echocardiogram. Proced ure: Transthoracic echocardiography was performed. Images were obta ined using a [employer] cardiac ultrasound machine. Image quality was suboptimal . The study was technically limited due to poor acoustic window availability. Complete 2D, complete spectral Doppler, and color Doppler . Patient room number: ERI3. Findings Left ventricle: The cavity size is normal. Wall thickness is normal. The estimated ejection fraction is 60-64%. Wall motion is normal; there are no regional wall motion abnormalities. Doppl er parameters are consistent with abnormal left ventricular relaxa tion (grade 1 diastolic dysfunction). Right ventricle: The cavity size is normal. Syst olic function is PATIENT NAME: TOSHIA BARONE 5531 normal. Systolic pressure is within the normal r darren. Ventricular septum: The ventricular septum is no rmal. Left atrium: The atrium is normal in size. Right atrium: The atrium is normal in size. Atrial septum: No defect or patent foramen ovale is identified. Aorta: The aorta is not visualized. Aortic valve: The valve is trileaflet. Thickenin g, consistent with sclerosis. There is no evidence of stenosis. The re is trivial regurgitation. Mitral valve: The leaflets are normal thickness. There is trivial regurgitation. Tricuspid valve: The leaflets are normal thickne ss. There is trivial regurgitation. Pulmonic valve: Not well visualized. Pericardium: There is no pericardial effusion. N o evidence of pleural fluid accumulation. Systemic veins: Inferior vena cava: Not well visualized. Measurements Left ventricle Value Ref Right atrium Value Ref RUKHSANA, LAX 4.5 cm 3.8 - Area, ES, A4C 17 cm 2 10 - 18 5.2 ESD, LAX 3.0 cm 2.2 - Aortic valve Value Ref 3.5 Leaflet sep, MM 1.50 cm ------- ESD/bsa, LAX 1.6 cm/m 2 1.3 - Peak v, S 0.9 m/sec ------- 2.1 Mean v, S 0.61 m/sec ------- FS, LAX 34 % 27 - 45 VTI, S 20.7 cm ------- ESD 3.0 cm 2.2 - Mean grad, S 1.7 mm Hg ------- 3.5 Peak grad, S 3.3 mm Hg ------- ESD/bsa 1.6 cm/m 2 1.3 - LVOT/AV, VTI ratio 1.03 ------- 2.1 DEIRDRE, VTI 2.69 cm 2 ------- FS 34 % 45 LVOT/AV, Vpeak ratio 0.93 ------- PW, ED 0.7 cm 0.6 - DEIRDRE, Vmax 2.41 cm 2 ------- 0.9 PW, ES 1.0 cm -------- Mitral valve Value Ref IVS/PW, ED 1.25 -------- Peak E 0.8 m/sec ------- PATIENT NAME: TOSHIA BARONE 5531 EF 63 % 54 - 74 Peak A 0.87 m/sec ------- EF, SMM Teich. 63 % >=55 Mean v, D 0.42 m/sec ------- IVRT 125 ms -------- VTI leaflet coapt 26.2 cm ------- E', lat rigo, TDI 9.0 cm/sec >=10.0 Decel time 253 ms ------- E/e', lat rigo, 9 -------- PHT 59 ms ------- TDI Mean grad, D 0.9 mm Hg ------- E', med rigo, TDI 7.0 cm/sec >=7.0 Peak grad, D 3.2 mm Hg ------- E/e', med rigo, 11 -------- Peak E/A ratio 0.91 ------- TDI MVA, PHT 3.8 cm 2 ------- E', avg, TDI 8.0 cm/sec -------- E/e', avg, TDI 10 <=14 Pulmonic valve Value Ref MO v, ED 0.59 m/sec ------- LVOT Value Ref Diam, S 1.82 cm -------- Tricuspid valve Value Ref Area 2.6 cm 2 -------- TR peak v 1.91 m/sec <=2.8 Peak tim, S 0.84 m/sec -------- Peak RV-RA grad , S 15 mm Hg ------- Mean tim, S 0.6 m/sec -------- VTI, S 21.4 cm -------- Aortic root Value Ref Peak grad, S 3 mm Hg -------- Root diam, ED MM 2.96 cm ------- Mean grad, S 2 mm Hg -------- SV 56 ml -------- Pulmonary artery Value Ref Qs 3.26 L/min -------- Pressure, S 20.2 mm Hg ------- Qs/bsa 1.7 L/(min-m 2) -------- SV/bsa 30 ml/m 2 -------- Systemic veins Value Ref Estimated CVP 10 mm Hg ------- Ventricular septum Value Ref IVS, ED 0.9 cm 0.6 - 0.9 IVS, ES 1.2 cm -------- Right ventricle Value Ref Pressure, S 25 mm Hg -------- RVOT Value Ref PATIENT NAME: TOSHIA BARONE 5531 Peak v, S 0.67 m/sec -------- Peak grad, S 2 mm Hg -------- Left atrium Value Ref Area ES, A4C 15 cm 2 <=20 Conclusions Summary: Left ventricle: The cavity size is norm al. Wall thickness is normal. The estimated ejection fraction is 60-64 %. Wall motion is normal; there are no regional wall motion abnorm alities. Doppler parameters are consistent with abnormal left naty tricular relaxation (grade 1 diastolic dysfunction). Prepared and el ectronically signed by Geremias Cruz MD 07/31/2018 16:42 at 1643 PATIENT NAME: TOSHIA BARONE [id number] 2018-07-31 08:31:00-00:00 [id number] [place] [address] PATIENT NAME: TOSHIA BARONE ADMIT DATE: ACCOUNT NO: [id number] ROOM NO: Z.409 AGE: 63 REPORT TYPE: CONSULTATION REPORT SEX: F ADMITTING PHYSICIAN:Thalia Jeffries MD ATTENDING PHYSICIAN:Thalia Jeffries MD CONSULTATION DATE: 07/31/2018 CONSULTING PHYSICIAN: Gulshan Rogers MD REFERRING PHYSICIAN: Thalia Jeffries MD REASON FOR CONSULTATION: We are asked to evaluate this patient for chest pain. HISTORY OF PRESENT ILLNESS: This is a 63-year-ol d female with a history of coronary artery disease, status post percutaneou s transluminal coronary angioplasty and stent, who presented with compla ints of retrosternal chest discomfort. She states it has been inter mittent over the past month. It was up to 9/10 to 10/10. There was associated shortness of breath. She has also complained of nausea, but no emesis. The pain co mes on randomly. She was transferred here from [facility] Emergency Room for further care. PAST MEDICAL HISTORY: 1. Coronary artery disease, status post percutan eous transluminal coronary angioplasty and stent. 2. Hyperlipidemia. 3. History of congestive heart failure. 4. COPD. PAST SURGICAL HISTORY: 1. Hysterectomy. 2. Status post lobectomy. 3. Hysterectomy. 4. . 5. Right varicose vein surgery. MEDICATIONS: Aspirin, melatonin, Colace, Lipitor , DuoNeb, Nitrostat, Lovenox, Tylenol p.r.n., and Zofran p.r.n. SOCIAL HISTORY: Prior smoker. No alcohol. ALLERGIES: PENICILLIN, REGLAN. FAMILY HISTORY: Positive for coronary artery dis ease. REVIEW OF SYSTEMS: CONSTITUTIONAL: No fever or chills. ENMT: No complaints of headache. PATIENT NAME: TOSHIA BARONE 5531 EYES: No complaints of blurred vision. RESPIRATORY: Shortness of breath associated with chest pain. CARDIOVASCULAR: Chest pain as noted above. GASTROINTESTINAL: Nausea with no emesis. GENITOURINARY: No complaints of urinary frequenc y or dysuria. MUSCULOSKELETAL: No complaints of joint pain. SKIN: No complaints of rash. NEUROLOGIC: No complaints of focal weakness. PHYSICAL EXAMINATION: GENERAL: Well-nourished female, in no acute dist ress. VITAL SIGNS: Temperature 97.9, blood pressure 12 5/64, pulse 63, respiratory rate 17, O2 saturations 97%. HEENT: Atraumatic, normocephalic. RESPIRATORY: Normal effort. LUNGS: Faint left basilar crackles. CARDIOVASCULAR: Normal S1 and S2. No S3 or S4. NECK: JVP is normal. No carotid bruits. EXTREMITIES: No edema. NEUROLOGIC: Cranial nerves II through XII are in tact. No focal motor deficits noted. LABORATORY DATA: White blood cell count 8.3, hem oglobin 12.2, and platelets 155. Sodium 140, potassium 4, chloride 1 10, CO2 of 23, BUN 20, creatinine 0.6, glucose 105, calcium 8.9. Troponin negative. DIAGNOSTIC STUDIES: Electrocardiogram normal sin us rhythm. Nonspecific T-wave abnormality. IMPRESSION: 1. Chest pain -- no myocardial infarction. 2. Coronary artery disease, status post percutan eous transluminal coronary angioplasty and stent. 3. Hyperlipidemia. RECOMMENDATIONS: 1. Continue current medical treatment. 2. We will plan for coronary angiography in a.m. by Dr. Cruz. Dictated By: Gulshan Rogers MD WT: CON:JALEN/SKIP/SACHIN Conf#: [id number]/DID#: [id number] Authenticated by Gulshan Rogers MD On 08/03/19 07:41:08 AM at 0741 PATIENT NAME: TOSHIA BARONE 5531 2018-07-30 18:12:00-00:00 [facility] ([facility]) History Physical - Adult REPORT#:[id number] REPORT STATUS: Signed DATE:07/30/18 TIME: 1811 PATIENT: TOSHIA BARONE UNIT #: [id number] ROOM/BED: [place] [address] : [birth year] AGE: 63 SEX: F ATTEND: Thalia Jeffries MD ADM AUTHOR: Thalia Jeffries MD * ALL edits or amendments must be made on the [employer]/computer document * History of Present Illness HPI Chief complaint: Chest pain , shortness of breath 2 weeks, worsen ing over 1 day PCP: PCP: dr Cruz HPI: This is a 63y/o obese female admitted with substernal chest pain , going to the back, associated with SOB. The pain is intermitt en, she is scheduled for cath this friday by DR Cruz. Since, the pain con tinued, pt was seen in [facility] ER, and transfed to here. History Past medical history: Reports: Congestive heart failure, COPD, Coronar y artery disease, Depression/ mood disorder, Diabetes mellitus, GERD/gastritis , Hypertension, Transient ischemic attack, Chronic pain, Dyslipidemia, Thy roid disorder, Venous thromboembolism. Additional medical history: GERD, TIA, CHF hyperlipidemia pancreatitis, Kidney stones COPD Fatty liver, B12 def Past surgical history: Reports: Hysterectomy. Additional surgical history: upper lobe removal, no cancer stents, c section, hysterectomy right varicose vein Alcohol use: Denies EtOH use Drug use: Denies recreational drugs Smoking status for patients 13 years old or olde r: Current every day smoker Medication/Allergy-Vaccine Hx Allergies: Coded Allergies: Penicillins (Intermediate, RASH 05/01/17) metoclopramide (From REGLAN) (Intermediate, RASH 05/01/17) Review of Systems ROS comments: 10 points reviewed , pertinent findings noted Physical Exam VS/I O Vital Signs: Date Time Temp Pulse Resp B/P B/P Pulse O2 O2 F low FiO2 Mean Ox Delivery Rate 07/30 1710 97.8 79 19 133/67 89 98 Room air General appearance: alert, awake, oriented Head/Eyes: atraumatic, clear cornea ENT: moist mucosal membranes Cardiovascular: regular rate rhythm, normal hear t sounds Respiratory: clear to auscultation Abdomen/GI: active bowel sounds, soft Extremities: moves all Neuro/DELIVERY MOTORCYCLE DRIVER: alert, oriented X 3 Results Findings/Data: Laboratory Tests: 07/30 1731 Chemistry Sodium (137 - 145 MMOL/L) 140 Potassium (3.5 - 5.1 MMOL/L) 4.0 Chloride (98 - 107 MMOL/L) 110 H Carbon Dioxide (22 - 30 MMOL/L) 23 BUN (7 - 17 MG/DL) 20 H Creatinine (0.52 - 1.04 MG/DL) 0.60 Glomerular Filtr Rate > 60 Glucose (74 - 106 MG/DL) 105 Calcium (8.4 - 10.2 MG/DL) 8.9 Troponin I (0.012 - 0.033 NG/ML) < 0.012 L Hematology WBC (3.8 - 9.8 K/MM3) 8.3 RBC (3.58 - 4.97 M/MM3) 3.85 Hgb (11.2 - 14.9 G/DL) 12.2 Hct (33.2 - 43.5 %) 37.5 MCV (80.7 - 99.1 fL) 97 MCH (27.0 - 34.1 pg) 31.7 MCHC (32.2 - 35.7 %) 32.5 RDW (12.1 - 15.2 %) 13.8 Plt Count (129 - 368 K/MM3) 155 Neut # (Auto) (2.0 - 7.6 K/mm3) 5.0 Lymph # (Auto) (1.0 - 3.8 K/mm3) 2.9 Pettis # (Auto) (0.1 - 0.8 K/mm3) 0.37 Eos # (Auto) (0.0 - 0.2 K/mm3) 0.1 Baso # (Auto) (0.0 - 0.2 K/mm3) 0.02 Immature Gran % (0.0 - 2.0 %) 0.1 Nucleated RBCs # (Man) (0.0 - 0.1 K/mm3) 0.0 Diagnosis, Assessment Plan Free Text A P: 1. Chest pain 2. Left sided 11 mm nodule needs FU as outpt 3. Hyperlipidemia 4. GERD 5. COPD 6. HTN 7. CAD Plan Continue enzymes DVT prophylaxis Cards consult Cath on Friday Quality BMI Screening > 25 or < 18.5 Patient's BMI: Current BMI: 27.5 BMI status/follow-up: abnl BMI, pt to F/U w/PCP Tobacco Use/Counseling Tobacco use/counseling: tobacco user HTN Screening/Follow-up Last documented vitals: Last Documented: Result Date Time Pulse Ox 98 07/30 1709 B/P 133/67 07/30 1709 B/P Mean 89 07/30 1709 O2 Delivery Room air 07/30 1709 Temp 97.8 07/30 1709 Pulse 79 07/30 1709 Resp 19 07/30 1709 Electronically Signed by Thalia Jeffries MD on 01/08 at 1821 RPT #:[id number] END OF REPORT 2018-07-30 17:20:00-00:00 [facility] ([facility]) EMERGENCY PROVIDER REPORT REPORT#:[id number] REPORT STATUS: Signed DATE:07/30/18 TIME: 1720 PATIENT: TOSHIA BARONE UNIT #: [id number] ROOM/BED: [place] [address] AGE: 63 SEX: F PCP PHYS: No Primary or Family Ph ysician SERVICE AUTHOR: Evangelista Saeed MD LOCATION: [facility] * ALL edits or amendments must be made on the [employer]/computer document * HPI-Chest Pain 40 and Over General Confirmed Patient Yes Patient Type New patient Initial Greet Date/Time 07/30/181715 PCP Dr. Cruz (Wire Frame Dipper) Transferred From [facility] Presentation Chief Complaint Chest pain Hx Obtained From Patient Sudden in Onset? No Onset Occurred Days ago (2) Symptom Duration Since onset Progression since Onset Gradually worsening )( Migration/Movement None Severity: Onset Mild Severity: Current Moderate Associated with Reports: Shortness of Breath. Denies: Cough, non -productive, Fever, Nausea, Vomiting. Associated Other Reports Dry mouth, Decreased ap petite Exacerbated by Exertion, moderate Context Related History Reports: Congestive heart failure, Diabetes cecelia itus, GERD, Hypertension. Free Text HPI Notes Free Text HPI Notes 63 y/o F w/Hx of CHF, DM, HT N, COPD, GERD, TIA, and thyroid disorder, is brought in by EMS from [facility] c/ o worsening CP that began 2 days ago. Pt states her pain is exacerbated with exertion, and is worse at night. Pt reports assoc dyspnea on exertion, dry mouth, and decreased ap petite. 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 Cruz, and she is scheduled to have a hearth cath on 08/01. Denies fever, chills, abdominal pain, nause a, or vomiting. Portions of this section were scribed by Nilsa Vaughan on 07/30/18 at 1735 Risk-Chest Pain 40 and Over Risk Stratification )( Coronary Artery Disease Risk factors reviewed , Diabetes mellitus, Hypertension )( Thoracic Aortic Dissection Risk factors revie wed, Hypertension )( Pulmonary Embolism Risk factors reviewed )( AMI-Aspirin Aspirin Last 24 Hrs Not indicated Portions of this section were scribed by Nilsa Vaughan on 07/30/18 at 1724 Review of Systems ROS Statements All systems rev neg except as marked. Focused Review of Systems Constitutional Denies: Chills, Fever. Respiratory Reports: Shortness of breath. Denies: Cough, pro ductive. Cardiovascular Reports: Chest pain. Denies: Palpitations. GI Denies: Abdominal pain, Nausea, Vomiting. Musculoskeletal Denies: Extremity pain, Extremity swelling. Skin Denies: Abrasion, Laceration. Neurologic Denies: Dizziness, Headache, Syncope. Additional Review of Systems Eyes Denies: Discharge bilat, Redness bilat, Swelling bilat. Ears/Nose/Throat Denies: Throat swelling, Tongue swelling. Female Denies: Dysuria, Urination decreased, Urination increased. Portions of this section were scribed by Nilsa Vaughan on 07/30/18 at 1720 Past Medical History - Adult Stated Complaint CHEST PAIN, TX FROM [facility] Allergies Coded Allergies: Penicillins (Intermediate, RASH 05/01/17) metoclopramide (From REGLAN) (Intermediate, RASH 05/01/17) Past Medical History: Reports: Congestive heart failure, COPD, Depress ion/mood disorder, Diabetes mellitus, GERD/gastritis, Hypertension, Transien t ischemic attack, Thyroid disorder, Venous thromboembolism. Past Surgical History: Reports: Hysterectomy. Additional Surgical History upper lobe removal Alcohol Use Denies EtOH use Drug Use Denies recreational drugs Portions of this section were scribed by Nilsa Vaughan on 07/30/18 at 1724 Physical Exam Vital Signs Vital Signs First Documented: Result Date Time Pulse Ox 98 07/30 1710 B/P 133/67 / 1710 B/P Mean 89 07/30 1710 O2 Delivery Room air 07/30 1709 Temp 36.6 07/300 Pulse 79 07/30 1709 Resp 07/30 Last Documented: Result Date Time Pulse Ox 98 07/30 1710 B/P 133/67 07/30 1710 B/P Mean 89 07/30 1710 O2 Delivery Room air 07/30 1709 Temp 36.6 07/30 171 Pulse 79 07/30 1709 Resp 07/30 Review of Vital Signs Reviewed Focused PE General/Const General/Const Awake, Alert, No acute distress Eyes Eyes Atraumatic, EOMI MS Neck Neck Atraumatic, No tracheal deviation Resp/Chest Respiratory/Chest Breath sounds NL, Breath soun ds = bilat, No respiratory distress, No rales, No rhonchi, No wheezing Cardiovascular Cardiovascular Heart rate NL, Regular rhythm, H eart sounds NL, No gallop, No murmurs, No rubs Abdomen/GI Abdomen/GI Soft, Non-tender, No distention Skin Skin Warm, Dry Neurologic Neurologic Speech NL, CN II - XII intact (gross ly) Additional PE MS Head Head Atraumatic, Normocephalic Ears/Nose/Throat Ears/Nose/Throat Atraumatic, Airway patent Portions of this section were scribed by Nilsa Vaughan on 07/30/18 at 1735 Interpretation Diagnostics Lab Results Interpretation Results Laboratory Tests 07/30/18 1731: [Embedded Image Not Available] 07/30/18 1731: [Embedded Image Not Available] Laboratory Tests: 07/30 07/30 1731 1731 Chemistry Sodium (137 - 145 MMOL/L) 140 Potassium (3.5 - 5.1 MMOL/L) 4.0 Chloride (98 - 107 MMOL/L) 110 H Carbon Dioxide (22 - 30 MMOL/L) 23 BUN (7 - 17 MG/DL) 20 H Creatinine (0.52 - 1.04 MG/DL) 0.60 Glomerular Filtr Rate > 60 Glucose (74 - 106 MG/DL) 105 Calcium (8.4 - 10.2 MG/DL) 8.9 Total Bilirubin (0.2 - 1.3 MG/DL) 0.9 Direct Bilirubin (0.0 - 0.3 MG/DL) 0.0 AST (14 - 36 UNITS/L) 27 ALT (9 - 52 UNITS/L) 19 Total Alk Phosphatase (38 - 126 UNITS/L) 77 Troponin I (0.012 - 0.033 NG/ML) < 0.012 L Total Protein (6.3 - 8.2 G/DL) 7.2 Albumin (3.5 - 5.0 G/DL) 3.6 Hematology WBC (3.8 - 9.8 K/MM3) 8.3 RBC (3.58 - 4.97 M/MM3) 3.85 Hgb (11.2 - 14.9 G/DL) 12.2 Hct (33.2 - 43.5 %) 37.5 MCV (80.7 - 99.1 fL) 97 MCH (27.0 - 34.1 pg) 31.7 MCHC (32.2 - 35.7 %) 32.5 RDW (12.1 - 15.2 %) 13.8 Plt Count (129 - 368 K/MM3) 155 Neut # (Auto) (2.0 - 7.6 K/mm3) 5.0 Lymph # (Auto) (1.0 - 3.8 K/mm3) 2.9 Pettis # (Auto) (0.1 - 0.8 K/mm3) 0.37 Eos # (Auto) (0.0 - 0.2 K/mm3) 0.1 Baso # (Auto) (0.0 - 0.2 K/mm3) 0.02 Immature Gran % (0.0 - 2.0 %) 0.1 Nucleated RBCs # (Man) (0.0 - 0.1 K/mm3) 0.0 Lab Statement Laboratory studies reviewed and considered in e medical decision-making. Point of Care Testing Pulse Oximetry Pulse Ox % 98 On: Room air Interpretation Interpreted by me, Pulse oximetr y normal Time 1710 ECG #1 Interpretation Date 07/30/18 Time 1716 Interpreted by ED physician NL ECG Interpretation Normal sinus rhythm, No ST KINA Rate 73 Portions of this section were scribed by Nilsa Vaughan on 07/30/18 at 1730 Re-Evaluation MDM Re-Evaluation/Progress #1 Time of Re-Eval 1730 Re-Eval Status Unchanged Plan Post Re-Eval Plan admit ED Course Medication(s) Ordered Medication(s) Ordered: Central Nervous System Agents Sig/Huma Start time Last Medication Dose Route Stop Time Status Admin Morphine Sulfate 4 MG Q3H PRN PRN 07/30 1735 AC 07/31 IV 07/31 1736 0346 Morphine Sulfate 4 MG X1ED STA 07/30 1735 DC IV 07/30 1736 1744 Gastrointestinal Drugs Sig/Huma Start time Last Medication Dose Route Stop Time Status Admin Ondansetron HCl 4 MG Q8H PRN PRN 07/30 1735 AC 07/30 IV 07/31 1632 2111 Portions of this section were scribed by Nilsa Vaughan on 07/30/18 at 1735 Patient Discharge Departure Vital Signs/Condition Vital Signs First Documented: Result Date Time Pulse Ox 98 02/07 1710 B/P 133/67 02/07 1710 B/P Mean 89 02/07 1710 O2 Delivery Room air 02/07 1710 Temp 36.6 02/07 1710 Pulse 79 02/07 1710 Resp 19 02/ 1710 Last Documented: Result Date Time Pulse Ox 98 02/07 1710 B/P 133/67 02/07 1710 B/P Mean 89 02/07 1710 O2 Delivery Room air 02/ 1710 Temp 36.6 02/07 1710 Pulse 79 02/07 1710 Resp 19 02/07 1710 All vital signs available at the time of this en try have been reviewed. Condition Stable Clinical Impression Clinical Impression Primary Impression: Chest pain Disposition Decision Admit Admit Physician Name Thalia Jeffries MD Admit Physician Hospitalist Request Time 1730 Request Date 07/30/18 )( Admission Accepts Yes )( Accepted Time 1730 )( Accepted Date 07/30/18 Call Information will see patient, agrees with eval, agrees with plan Discharge/Care Plan Counseled Regarding Diagnosis, Lab results, Need for admission Admit Note I have spoken with the patie nt and/or caregivers. I have explained the patient's condition, diagnoses and grecia atment plan based on the information available to me at this time. I have answered the patient's and/ or caregiver's questions and addressed any concerns. The patient and/or careg jackie have as good an understanding of the patient 's diagnosis, condition and treatment plan as can be expected at this point. The patient has been stabilized within the capability of the emergency department. The patient wi ll be transported for further care and management or will be moved to an observation or inpatient service. I have communicated with the staff or medical p ractitioner taking over this patient's care. Quality Measures BP F/U for HTN Patient admitted 12-Lead ECG for CP Performed documented Supervising Physician Note Scribe Statement Nilsa Vaughan, 07/30/18 1734, scribing for a nd in the presence of Dr. Evangelista Saeed MD. Signed By: Nilsa Vaughan, 07/30/18 1734 Provider Scribed Statement I personally performed the s ervices described in this documentation and reviewed the documentation that was dictated to the scrib e(s) in my presence, and it accurately records my words and actions. Evangelista Nam MD, 07/30/18 Portions of this section were scribed by Nilsa Vaughan on 07/30/18 at 1730 at 0608 RPT #:[id number] END OF REPORT
[2022-11-12 17:16] LABS: Hematocrit 42.2 % (36.0-45.0); Lymphocytes % 36.6 % (15.3-44.8); MCV 92.7 fL (80-100); RBC Red Blood Cell Count 4.55 M/uL (3.86-4.86)
[2022-11-12 18:11] LABS: ALT/SGPT 34 U/L (13-56); AST/SGOT 35 U/L (15-37); Albumin 3.1 g/dL (3.4-5.0); Alkaline Phosphatase 82 U/L (45-117); BUN Blood Urea Nitrogen 24 mg/dL (7-18); Bicarbonate 24 mEq/L (21-32); Bilirubin Total 0.7 mg/dL (0.2-1.0); Glomerular Filtration Rate 68 ml/min (=/>90); Glucose Level 89 mg/dL (74-106); Lipase 38 U/L (13-75); Potassium 3.9 mEq/L (3.5-5.1); Protein, Total 6.7 g/dL (6.4-8.2); Sodium Level 138 mEq/L (136-145)
[2022-11-12 18:14] LABS: Troponin High Sensitivity < 3.0 pg/mL (<58.9)
[2022-11-12] MEDS ORDERED: ONDANSETRON 4 MG/2 ML VIAL ONE (18:23)
[2022-11-12] MEDS ORDERED: MORPHINE 2 MG/ML SYR ONE (18:23)
[2022-11-12 18:27] LABS: Hematocrit 38.8 % (36.0-45.0)
--- NOTE | 2022-11-12 19:25 | RAD REPORT ---
EXAM DESCRIPTION: CT - Abdomen Pelvis W Contrast - 11/12/2022 6:50 pm CLINICAL HISTORY: epigastric pain, dark stools COMPARISON: Abdomen Pelvis W Contrast dated 12/15/2021; Abdomen Pelvis W Contrast dated 01/24/2020; Abdomen Pelvis W Contrast dated 08/26/2019; Abdomen Pelvis W Contrast dated 12/31/2018; Abdomen Exa m Complete dated 10/14/2022 TECHNIQUE: Thin cut axial CT imaging of the abdomen and pelvis was performed following intravenous a dministration of 100 mL Isovue 300. Multiplanar reformats were generated and reviewed. All CT scans are performed using dose optimization technique as appropriate and may include automated exposure control or mA/KV adjustment according to patient size. FINDINGS: No suspicious findings in the lung bases. The liver, spleen, and pancreas show no suspicious findings. Status post cholecystectomy. No evidence of intra or extrahepatic biliary ductal dilation. Small renal cortical cystic lesions, grossly stable. Symmetric renal function is seen otherwise, with no hydronephrosis or suspicious renal mass. Mild stool burden in the sigmoid and rectum. Relatively abrupt transition towards nondistended lower rectal bulb, possibly due to peristalsis, however evaluation is not conclusive on CT. A segment of no ndistention at the rectosigmoid junction is also noted, also possibly related to peristalsis. No dila ramiro bowel loops or bowel wall thickening. No free air, free fluid or inflammatory stranding. No herni a, mass or bulky lymphadenopathy. The urinary bladder is without significant finding. No suspicious bony findings. IMPRESSION: No acute intra-abdominal process. Relatively abrupt transition towards nondistended lower rectal bulb, possibly due to peristalsis, how ever evaluation is not conclusive on CT. Consider additional colonoscopic evaluation as clinically in dicated.
--- NOTE | 2022-11-12 19:58 | ER ---
Nurse's Notes [facility] Name: Toshia Barone Age: 67 yrs Sex: Female : 1955 Arrival Date: 11/12/2022 Time: 16:19 Bed 5 Private MD: Winston Kat Diagnosis: Diarrhea, unspecified;Abdominal pain, unspecified Presentation: 11/12 16:37 Chief complaint: Patient states: has been having black stool since Friday and went to see her GI doctor today , she was told her Hbg was low like 7 or 8, she is feeling exhausted, also having upper abd pain for 4-5 days , intermittent pain, hx of pancreatitis , pain feels similar but not as severe. Coronavirus screen: At this time, the client does not indicate any symptoms associated with coronavirus-19. Ebola Screen: Patient negative for fever greater than or equal to 101.5 degrees Fahrenheit, and additional compatible Ebola Virus Disease symptoms Patient denies exposure to infectious person. Patient denies travel to an Ebola-affected area in the 21 days before illness onset. No symptoms or risks identified at this time. Initial Sepsis Screen: Does the patient meet any 2 criteria? No. Patient's initial sepsis screen is negative. Does the patient have a suspected source of infection? No. Patient's initial sepsis screen is negative. Risk Assessment: Do you want to hurt yourself or someone else? Patient reports no desire to harm self or others. Onset of symptoms was November 09, 2022. 16:37 Method Of Arrival: Ambulatory iw 16:37 Acuity: SHARON 3 Triage Assessment: 17:14 General: Appears in no apparent distress. obese, Behavior is calm, cooperative, bp appropriate for age. Pain: Complains of pain in abdomen. EENT: No deficits noted. Neuro: No deficits noted. Cardiovascular: No deficits noted. Respiratory: No deficits noted. GI: Reports lower abdominal pain, bloody stool. : No signs and/or symptoms were reported regarding the genitourinary system. Derm: No deficits noted. Musculoskeletal: No deficits noted. Historical: - Allergies: 16:39 methylphenidate HCl; iw 16:39 PENICILLINS; iw 16:39 Reglan; iw 16:39 Ritalin; iw - PMHx: 16:39 B12 deficiency; CHF; COPD; CVA; DVT; fatty liver; GERD; Hyperlipidemia; Hypertension; iw Hypothyroidism; Kidney stones; Myocardial infarction; Pancreatitis; TIA; Diabetes mellitus; - PSHx: 16:39 Total abdominal hysterectomy; Cholecystectomy; Left upper lobe removed from lung; iw - Immunization history:: Adult Immunizations Client reports receiving the 2nd dose of the Covid vaccine. - Social history:: Smoking status: Patient reports the use of cigarette tobacco products, Patient/guardian denies using tobacco, the patient reports quitting approximately 30 years ago. Screenin:14 [facility] ED Fall Risk Assessment (Adult) History of falling in the last 3 months, bp including since admission No falls in past 3 months (0 pts). Abuse screen: Denies threats or abuse. Denies injuries from another. Nutritional screening: No deficits noted. Tuberculosis screening: No symptoms or risk factors identified. Assessment: 17:14 General: SEE TRIAGE NOTE. bp 19:15 Reassessment: Patient appears in no apparent distress at this time. Patient and/or jb4 family updated on plan of care and expected duration. Pain level reassessed. Patient is alert, oriented x 3, equal unlabored respirations, skin warm/dry/pink. 20:12 Reassessment: Patient appears in no apparent distress at this time. Patient and/or jb4 family updated on plan of care and expected duration. Pain level reassessed. Patient is alert, oriented x 3, equal unlabored respirations, skin warm/dry/pink. Vital Signs: 16:37 BP 138 / 82; Pulse 69; Resp 16; Temp 97.4; Pulse Ox 99% on R/A; Weight 82.55 kg; Height iw 5 ft. 5 in. ; Pain 5/10; 20:00 BP 128 / 66; Pulse 63; Resp 16; Pulse Ox 98% on R/A; jb4 16:37 Body Mass Index 30.29 (82.55 kg, 165.1 cm) iw 16:37 Pain Scale: Adult ED Course: 16:29 Patient arrived in ED. im 16:30 Winston Kat DO is Private Physician. im 16:39 Triage completed. iw 16:41 Jeevan Mays PA is PHCP. [facility] 16:41 Lakshmi Miller MD is Attending Physician. m 16:41 Arm band placed on. iw 17:04 Inserted saline lock: 22 gauge in left antecubital area, using aseptic technique. Blood iw collected. 17:13 Tang Walker, RN is Primary Nurse. bp 17:14 Patient has correct armband on for positive identification. Bed in low position. Call bp light in reach. Side rails up X2. 17:40 Radiology exam delayed due to lab results not completed at this time. (BUN/Creatinine). jg10 18:51 CT Abd/Pelvis - IV Contrast Only In Process Unspecified. EDMS 19:58 Shalonda Arora MD is Referral Physician. [facility] 20:16 No provider procedures requiring assistance completed. IV discontinued, intact, jb4 bleeding controlled, No redness/swelling at site. Pressure dressing applied. Administered Medications: 18:20 Drug: morphine IVP or IV 2 mg Route: IVP; Infused Over: 4 mins; Site: left antecubital; bp 18:20 Drug: Ondansetron IVP 4 mg Route: IVP; Site: left antecubital; bp Medication: 17:14 VIS not applicable for this client. bp Outcome: 19:58 Discharge ordered by . [facility] 20:16 Discharged to home ambulatory. jb4 20:16 Condition: stable 20:16 Discharge instructions given to patient, family, Instructed on Demonstrated understanding of instructions, follow-up care. 20:17 Patient left the ED. jb4 Signatures: Dispatcher [employer] EDMS Jeevan Mays PA PA Edel Sue, Keanu Nascimento RN, RN RN jbTang Coles, RN RN Josie Melgar g1 Mery Valderrama
--- NOTE | 2022-11-12 19:58 | EDPHYS ---
Physician Documentation [facility] Name: Toshia Barone Age: 67 yrs Sex: Female : 1955 Arrival Date: 11/12/2022 Time: 16:19 Bed 5 Private MD: Winston Kat ED Physician Lakshmi Miller HPI: 11/12 16:44 This 67 yrs old Female presents to ER via Ambulatory with complaints of jmm Black/Tarry Stools, Abnormal Lab Results. 16:44 The patient presents with abdominal pain. Onset: The symptoms/episode began/occurred jmm gradually, 1 week(s) ago. This is a 67-year-old female with a history of CHF, COPD, CVA, DVT, hyperlipidemia, GERD the presents emerged part with complaints of epigastric abdominal pain and dark stools week ago. Patient visited with her iron plastic bullet maker who performed lab work and recommended the patient go to the ED to do to low hemoglobin levels. Patient complains of generalized fatigue.. Historical: - Allergies: 16:39 methylphenidate HCl; iw 16:39 PENICILLINS; iw 16:39 Reglan; iw 16:39 Ritalin; iw - PMHx: 16:39 B12 deficiency; CHF; COPD; CVA; DVT; fatty liver; GERD; Hyperlipidemia; Hypertension; iw Hypothyroidism; Kidney stones; Myocardial infarction; Pancreatitis; TIA; Diabetes mellitus; - PSHx: 16:39 Total abdominal hysterectomy; Cholecystectomy; Left upper lobe removed from lung; iw - Immunization history:: Adult Immunizations Client reports receiving the 2nd dose of the Covid vaccine. - Social history:: Smoking status: Patient reports the use of cigarette tobacco products, Patient/guardian denies using tobacco, the patient reports quitting approximately 30 years ago. ROS: 16:44 Cardiovascular: Negative for chest pain, palpitations, and edema, Respiratory: Negative jmm for shortness of breath, cough, wheezing, and pleuritic chest pain. 16:44 Constitutional: Positive for fatigue. 16:44 Abdomen/GI: Positive for abdominal pain, black/tarry stool. 16:44 All other systems are negative. Exam: 16:44 Constitutional: This is a well developed, well nourished patient who is awake, alert, jmm and in no acute distress. Head/Face: atraumatic. Eyes: EOMI, no conjunctival erythema appreciated ENT: Moist Mucus Membranes Neck: Trachea midline, Supple Chest/axilla: Normal chest wall appearance and motion. Cardiovascular: Regular rate and rhythm. No edema appreciated Respiratory: Normal respirations, no respiratory distress appreciated 16:44 Back: Normal ROM Skin: General appearance color normal MS/ Extremity: Moves all extremities, no obvious deformities appreciated, no edema noted to the lower extremities Neuro: Awake and alert Psych: Behavior is normal, Mood is normal, Patient is cooperative and pleasant 16:44 Abdomen/GI: Inspection: abdomen appears normal, Palpation: soft, mild abdominal tenderness, in the epigastric area, right upper quadrant and left upper quadrant. Vital Signs: 16:37 BP 138 / 82; Pulse 69; Resp 16; Temp 97.4; Pulse Ox 99% on R/A; Weight 82.55 kg; Height iw 5 ft. 5 in. ; Pain 5/10; 20:00 BP 128 / 66; Pulse 63; Resp 16; Pulse Ox 98% on R/A; jb4 16:37 Body Mass Index 30.29 (82.55 kg, 165.1 cm) iw 16:37 Pain Scale: Adult iw MDM: 16:44 Patient medically screened. [facility] 22:02 Differential diagnosis: Gastritis, peptic ulcer disease, upper GI bleed. Data reviewed: [facility] vital signs, nurses notes, lab test result(s), radiologic studies, CT scan. Consideration of Admission/Observation Escalation of care including admission/observation considered. Management of patient was discussed with the following: Heat Curer: Dr. Arora. Counseling: I had a detailed discussion with the patient and/or guardian regarding: the historical points, exam findings, and any diagnostic results supporting the discharge/admit diagnosis, lab results, radiology results, the need for outpatient follow up, to return to the emergency department if symptoms worsen or persist or if there are any questions or concerns that arise at home. 22:03 ED course: Patient is alert nontoxic in appearance NAD. States feeling much better. [facility] Labs are unremarkable. Possibly lab error earlier. Labs were repeated to ensure it was accurate. Patient recommended to follow-up with GI tomorrow for reevaluation. I discussed lab results with GI.. 11/12 16:46 Order name: CBC with Diff; Complete Time: 18:14 [facility] 11/12 16:46 Order name: CMP; Complete Time: 18:21 [facility] 11/12 16:46 Order name: Lipase; Complete Time: 18:21 [facility] 11/12 16:46 Order name: Type And Screen; Complete Time: 18:14 [facility] 11/12 16:46 Order name: Troponin High Sensitivity; Complete Time: 18:21 [facility] 11/12 17:35 Order name: Hematocrit; Complete Time: 18:28 [facility] 11/12 17:35 Order name: Hemoglobin; Complete Time: 18:28 [facility] 11/12 17:28 Order name: CT Abd/Pelvis - IV Contrast Only; Complete Time: 19:32 [facility] 11/12 16:46 Order name: IV Saline Lock; Complete Time: 17:04 [facility] 11/12 16:46 Order name: Labs collected and sent; Complete Time: 17:04 [facility] 11/12 16:46 Order name: EKG - Nurse/Tech; Complete Time: 17:52 [facility] 11/12 17:21 Order name: Labs - recollect needed: recollect green top; Complete Time: 17:44 bd Administered Medications: 18:20 Drug: morphine IVP or IV 2 mg Route: IVP; Infused Over: 4 mins; Site: left antecubital; bp 18:20 Drug: Ondansetron IVP 4 mg Route: IVP; Site: left antecubital; bp Disposition Summary: 11/12/22 19:58 Discharge Ordered Location: Home jmm Condition: Stable jmm Diagnosis - Diarrhea, unspecified jmm - Abdominal pain, unspecified jmm Followup: [facility] - With: Shalonda Arora MD - When: Tomorrow - Reason: Recheck today's complaints, Continuance of care, Re-evaluation by your physician Discharge Instructions: - Discharge Summary Sheet jmm - Abdominal Pain, Adult jmm - Food Choices to Help Relieve Diarrhea, Adult jmm - Clear Liquid Diet, Adult jmm Forms: - Medication Reconciliation Form jmm - Thank You Letter jmm - Antibiotic Education jmm - Prescription Opioid Use jmm Signatures: Dispatcher [employer] EDTyra Finley Joel, PA PA jmm Edel Tong, RN RN iw Tang Walker RN RN bp
[2022-11-12 20:50] VITALS: TEMP 97.4
[2022-11-12 20:56] VITALS: BP 128/66; O2SAT 98
--- NOTE | 2022-11-13 13:38 | EKG ---
Test Date: 2022-11-12 Test Time: 17:46:45 Refractory Grinder Operator: LML MEASUREMENT RESULTS: Intervals: Rate: 66 MI: 152 QRSD: 70 QT: 462 QTc: 484 Russell: P: 3 MI: 152 QRS: 14 T: 74 INTERPRETIVE STATEMENTS: Normal sinus rhythm Normal ECG Compared to ECG 08/20/2021 17:20:24 ST (T wave) deviation no longer present Electronically Signed On 11-13-22 13:37:40 CDT by Benton Davison
== END 2022-11-12 20:17 | disposition home or self-care (01) ==
LOC: ER 16:19
DX: R19.7 Diarrhea, unspecified (principal); E11.9 Type 2 diabetes mellitus without complications; I10 Essential (primary) hypertension; I50.9 Heart failure, unspecified; J44.9 Chronic obstructive pulmonary disease, unspecified; Z88.0 Allergy status to penicillin; Z88.8 Allergy status to other drugs, medicaments and biological substances
CPT/HCPCS: 93005; 85025; 36415; 86900; 86850; 86901; 85018; 85014; 84484; 83690; 80053; 74177; Q9967; J2270; J2405; 96374; 96375; 99284

== ENCOUNTER → 2023-06-28 | Emergency (ER) | payer OTHER ==
[~2023-06-28] MED LIST changes: +ACETAMINOPHEN 325 MG TABLET ONE; -D5 0.9 NS 1,000 ML IV ONE; +KETOROLAC 30 MG/ML INJ ONE; +ONDANSETRON 4 MG/2 ML VIAL ONE
--- OUTSIDE RECORDS SUMMARY | 2023-06-28 13:58 | XMS REPORT | Continuity of Care Document ---
Author Name Unknown Address [address] [facility] [address] [place] [address] [facility] [address] [facility] [address] [place] [address] Care Team Providers Care Area Secretary Name Role Phone Bains PRESTON, Ness Primary Care Physician Tonio Miller Attending Clinician Unavailable Tyler Henson MD Attending Clinician [phone] Doctor Unassigned, [place] Attending Clinician U navailable Only, Adc Test Attending Clinician Unavailable Pob, 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 Attending Clinician UnavailYash Stovall MD Attending Clinician [phone] Rajsarita_P Attending Clinician Unavailable Tyler Henson MD Admitting Clinician [phone] Kalyn_P Admitting Clinician Unavailable Payers Payer Name Policy Type Policy Number Effective Date Expirati on Date Source [employer] [facility] Advantage 1 [id number] 2022 00:00:00 [facility] STAR Plus HARRY 53 [id number] 2021 00:00:00 [facility] [employer] Dual Premier MCR OON 1 [id number] 2022 00:00:00 [facility]-STAR PLUS C1 [id number] 2017 00:00:00 [facility] PLUS C1 [id number] 2017 00:00:00 [facility] PLUS C1 [id number] 2017 00:00:00 [facility] PLUS C1 [id number] 2017 00:00:00 [facility] PL[facility] C1 [id number] 2017 00:00:00 [facility] PLUS C1 [id number] 2017 00:00:00 [facility] PLUS C1 [id number] 2017 00:00:00 [facility] PLUS C1 [id number] 2017 00:00:00 [facility] PLUS C1 [id number] 2017 00:00:00 [facility] PLUS C1 [id number] 2017 00:00:00 [facility] PLUS C1 [id number] 2017 00:00:00 [facility]STAR PLUS C1 [id number] 2017 00:00:00 [facility] STAR PLUS (MEDICAID HMO) [id number] 2013 00:00:00 Problems Condition Name Condition Details Condition Category Status Onset Date Resolution Date Last Treatment Date Treating Clinician Comments Source Peripheral neuropathy Peripheral neuropathy Problem [facility] Chronic pancreatit is Chronic pancreatit is Problem [facility] Fatty liver Fatty liver Problem [facility] Insomnia Insomnia Problem [facility] Stented coronary artery Stented coronary artery Problem [facility] Gastroesop hageal reflux disease GERD (gastroeso phageal reflux disease) Problem [facility] Degenerati on of lumbosacra l interverte bral disc Degenerati on, interverte bral disc, lumbosacra l Problem [facility] 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 Atheroscle rosis of coronary artery of [place] heart Problem [facility] Degenerati ve joint disease Degenerati ve joint disease Problem [facility] Varicose veins Varicose veins Problem [facility] Hypertensi on Hypertensi on Problem [facility] Dizziness Dizziness Problem [facility] Postsurgic al menopause Postsurgic al menopause Problem [facility] [id number] History of transient ischemic attack Problem [facility] History of cerebrovas cular accident History of cerebrovas cular accident Problem [facility] [id number] Adrenal hypofuncti on Problem [facility] Megaloblas tic anemia due to vitamin B>12< deficiency Vitamin B12 deficiency anemia Problem [facility] Simple renal cyst Simple renal cyst Problem [facility] [id number] Stress disorder, acute Problem [facility] Solitary nodule of lung Lung nodule Problem [facility] Mixed anxiety and depressive disorder Depression with anxiety Problem [facility] [id number] Vitamin D deficiency Problem [facility] Obstructiv e sleep apnea Obstructiv e sleep apnea Problem [facility] Mixed hyperlipid emia Hyperlipid emia, mixed Problem [facility] [id number] Chronic obstructiv e pulmonary disease, unspecifie d COPD type Problem [facility] [id number] Hypothyroi dism, unspecifie d type Problem [facility] [id number] Other chronic pain Problem [facility] [id number] Kidney stones Problem [facility] [id number] Gross hematuria Problem [facility] [id number] Lower urinary tract symptoms (LUTS) Problem [facility] [id number] Urinary incontinen ce, unspecifie d type Problem [facility] Sinusitis Sinusitis Problem [facility] [id number] Suprapubic pain Problem [facility] [id number] Painful bladder spasm Problem [facility] [id number] Obesity (BMI 30-39.9) Problem [facility] [id number] Flank pain, acute Problem [facility] History of urinary stone History of renal calculi Problem [facility] Acid reflux Acid reflux Problem [facility] [id number] Moderate major depression , single episode Problem [facility] [id number] Type 2 diabetes mellitus with hyperglyce tim, without long-term current use of insulin Problem [facility] Amnesia Memory changes Problem [facility] Allergies, Adverse Reactions, Alerts Allergy Name Allergy Type Status Severity Reaction(s) Onset Date Inactive Date Treating Clinician Comments Source Ranitidi ne - Oral Propensi ty to adverse reaction to drug Active 12-05 00:00: 00 Penicill ins Propensi ty to adverse reaction to drug Active 12-11 00:00: 00 metoclop ramide metoclop ramide Active anxiety [facility] Social History Social Habit Start Date Stop Date Quantity Comments Source History of Tobacco Use [facility] Sex Assigned At [facility] Smoking Status Start Date Stop Date Source Unknown if ever smoked Commo n [facility] Former Smoker 2023-04-29 00:00:00 2023-04-29 00:00:00 [facility] Current Smoker 2022-07-01 00:00:00 [facility] Never Smoker [facility] Medications Ordered Medication Name Filled Medication Name Start Date Stop Date Current Medication? Ordering Clinician Indication Dosage Frequency Signature (SIG) Comments Components Source Cyanocobala min Cyanocobala min 2022-06 00:00: 00 No 1000ug [facility] Cyanocobala min Cyanocobala min 2022-06 00:00: 00 No 1000ug [facility] Cyanocobala min Cyanocobala min 2022-06 00:00: 00 No 1000ug [facility] Cyanocobala min Cyanocobala min 2022-06 00:00: 00 No 1000ug [facility] Cyanocobala min Cyanocobala min 2022-06 00:00: 00 No 1000ug [facility] Cyanocobala min Cyanocobala min 2022-06 00:00: 00 No 1000ug [facility] Cyanocobala min Cyanocobala min 2022-06 00:00: 00 No 1000ug [facility] Cyanocobala min Cyanocobala min 2022-06 00:00: 00 No 1000ug [facility] Cyanocobala min Cyanocobala min 2022-06 00:00: 00 No 1000ug [facility] Cyanocobala min Cyanocobala min 2022-06 00:00: 00 No 1000ug [facility] Cyanocobala min Cyanocobala min 2022-06 00:00: 00 No 1000ug [facility] Cyanocobala min Cyanocobala min 2022-06 00:00: 00 No 1000ug [facility] Cyanocobala min Cyanocobala min 2022-06 00:00: 00 No 1000ug [facility] Cyanocobala min Cyanocobala min 2022-06 00:00: 00 No 1000ug [facility] Cyanocobala min Cyanocobala min 2022-06 00:00: 00 No 1000ug [facility] Cyanocobala min Cyanocobala min 2022-06 00:00: 00 No 1000ug [facility] metFORMIN HCl ER 500 MG metFORMIN HCl ER 500 MG 01-27 00:00: 00 No BID metFORMIN HCl ER 500 MG Cyanocobala min Cyanocobala min 01-27 00:00: 00 No 1000ug [facility] metFORMIN HCl ER 500 MG metFORMIN HCl ER 500 MG 01-27 00:00: 00 No BID metFORMIN HCl ER 500 MG Cyanocobala min Cyanocobala min 01-27 00:00: 00 No 1000ug [facility] metFORMIN HCl ER 500 MG metFORMIN HCl ER 500 MG 01-27 00:00: 00 No BID metFORMIN HCl ER 500 MG Cyanocobala hans Cyanocobala min 01-27 00:00: 00 No 1000ug [facility] metFORMIN HCl ER 500 MG metFORMIN HCl ER 500 MG 01-27 00:00: 00 No BID metFORMIN HCl ER 500 MG Cyanocobala min Cyanocobala min 01-27 00:00: 00 No 1000ug [facility] metFORMIN HCl ER 500 MG metFORMIN HCl ER 500 MG 01-27 00:00: 00 No BID metFORMIN HCl ER 500 MG Cyanocobala min Cyanocobala min 01-27 00:00: 00 No 1000ug [facility] metFORMIN HCl ER 500 MG metFORMIN HCl ER 500 MG 01-27 00:00: 00 No BID metFORMIN HCl ER 500 MG Cyanocobala min Cyanocobala min 01-27 00:00: 00 No 1000ug [facility] metFORMIN HCl ER 500 MG metFORMIN HCl ER 500 MG 01-27 00:00: 00 No BID metFORMIN HCl ER 500 MG Cyanocobala min Cyanocobala min 01-27 00:00: 00 No 1000ug [facility] metFORMIN HCl ER 500 MG metFORMIN HCl ER 500 MG 01-27 00:00: 00 No BID metFORMIN HCl ER 500 MG Cyanocobala min Cyanocobala min - 00:00: 00 No 1000ug [facility] Cyanocobala min Cyanocobala min 01-27 00:00: 00 No 1000ug [facility] Cyanocobala min Cyanocobala min 01-27 00:00: 00 No 1000ug [facility] Cyanocobala min Cyanocobala min 01-27 00:00: 00 No 1000ug [facility] Cyanocobala min Cyanocobala min 01-27 00:00: 00 No 1000ug [facility] Cyanocobala min Cyanocobala min 01-27 00:00: 00 No 1000ug [facility] Cyanocobala min Cyanocobala min 01-27 00:00: 00 No 1000ug [facility] Cyanocobala min Cyanocobala min 01-27 00:00: 00 No 1000ug [facility] Cyanocobala min Cyanocobala min 01-27 00:00: 00 No 1000ug [facility] Cyanocobala min Cyanocobala min - 00:00: 00 No 1000ug [facility] Cyanocobala min Cyanocobala min 01-27 00:00: 00 No 1000ug [facility] Cyanocobala min Cyanocobala min - 00:00: 00 No 1000ug [facility] Cyanocobala min Cyanocobala min 2022-0 8- 00:00: 00 No 1000ug [facility] Cyanocobala min Cyanocobala min 0 8- 00:00: 00 No 1000ug [facility] Cyanocobala min Cyanocobala min 2022-0 8- 00:00: 00 No 1000ug [facility] Cyanocobala min Cyanocobala min 0 8- 00:00: 00 No 1000ug [facility] Cyanocobala min Cyanocobala min 0 8- 00:00: 00 No 1000ug [facility] Cyanocobala min Cyanocobala min 0 7- 00:00: 00 No 1mL [facility] Cyanocobala min Cyanocobala min 0 7- 00:00: 00 No 1mL [facility] Cyanocobala min Cyanocobala min 0 - 00:00: 00 No 1mL [facility] Cyanocobala min Cyanocobala min 0 - 00:00: 00 No 1mL [facility] Cyanocobala min Cyanocobala min 0 - 00:00: 00 No 1mL [facility] Cyanocobala min Cyanocobala min 0 - 00:00: 00 No 1mL [facility] Cyanocobala min Cyanocobala min 0 - 00:00: 00 No 1mL [facility] Cyanocobala min Cyanocobala min 0 - 00:00: 00 No 1mL [facility] Cyanocobala min Cyanocobala min 0 - 00:00: 00 No 1mL [facility] Cyanocobala min Cyanocobala min 0 7- 00:00: 00 No 1mL [facility] Cyanocobala min Cyanocobala min 01-08 00:00: 00 No 1mL [facility] Cyanocobala min Cyanocobala min 01-08 00:00: 00 No 1mL [facility] Cyanocobala min Cyanocobala min 01-08 00:00: 00 No 1mL [facility] Cyanocobala min Cyanocobala min 01-08 00:00: 00 No 1mL [facility] Cyanocobala min Cyanocobala min 01-08 00:00: 00 No 1mL [facility] Cyanocobala min Cyanocobala min 01-08 00:00: 00 No 1mL [facility] Cyanocobala min Cyanocobala min 01-08 00:00: 00 No 1mL [facility] Cyanocobala min Cyanocobala min 01-08 00:00: 00 No 1mL [facility] Cyanocobala min Cyanocobala min 01-08 00:00: 00 No 1mL [facility] Cyanocobala min Cyanocobala min 01-08 00:00: 00 No 1mL [facility] Cyanocobala min Cyanocobala min 01-08 00:00: 00 No 1mL [facility] Cyanocobala min Cyanocobala min 01-08 00:00: 00 No 1mL [facility] Cyanocobala min Cyanocobala min 01-08 00:00: 00 No 1mL [facility] Cyanocobala min Cyanocobala min 0 01-08 00:00: 00 No 1mL [facility] Cyanocobala min Cyanocobala min 12-16 00:00: 00 No 1mL [facility] Cyanocobala min Cyanocobala min 12-16 00:00: 00 No 1mL [facility] Cyanocobala min Cyanocobala min 12-16 00:00: 00 No 1mL [facility] Cyanocobala min Cyanocobala min 12-16 00:00: 00 No 1mL [facility] Cyanocobala min Cyanocobala min 12-16 00:00: 00 No 1mL [facility] Cyanocobala min Cyanocobala min 12-16 00:00: 00 No 1mL [facility] Cyanocobala min Cyanocobala min 12-16 00:00: 00 No 1mL [facility] Cyanocobala min Cyanocobala min 12-16 00:00: 00 No 1mL [facility] Cyanocobala min Cyanocobala min 12-16 00:00: 00 No 1mL [facility] Cyanocobala min Cyanocobala min 12-16 00:00: 00 No 1mL [facility] Cyanocobala min Cyanocobala min 12-16 00:00: 00 No 1mL [facility] Cyanocobala min Cyanocobala min 12-16 00:00: 00 No 1mL [facility] Cyanocobala min Cyanocobala min 12-16 00:00: 00 No 1mL [facility] Cyanocobala min Cyanocobala min 12-16 00:00: 00 No 1mL [facility] Cyanocobala min Cyanocobala min 12-16 00:00: 00 No 1mL [facility] Cyanocobala min Cyanocobala min 0 12-16 00:00: 00 No 1mL [facility] Cyanocobala min Cyanocobala min 0 12-16 00:00: 00 No 1mL [facility] Cyanocobala min Cyanocobala min 0 12-16 00:00: 00 No 1mL [facility] Cyanocobala min Cyanocobala min 0 12-16 00:00: 00 No 1mL [facility] Cyanocobala min Cyanocobala min 0 12-16 00:00: 00 No 1mL [facility] Cyanocobala min Cyanocobala min 0 12-16 00:00: 00 No 1mL [facility] Cyanocobala min Cyanocobala min 0 12-16 00:00: 00 No 1mL [facility] Cyanocobala min Cyanocobala min 0 12-16 00:00: 00 No 1mL [facility] Cyanocobala min Cyanocobala min 0 12-16 00:00: 00 No 1mL [facility] Cyanocobala min Cyanocobala min 0 11-06 00:00: 00 No 1000ug [facility] Cyanocobala min Cyanocobala min 0 11-06 00:00: 00 No 1000ug [facility] Cyanocobala min Cyanocobala min 0 11-06 00:00: 00 No 1000ug [facility] Cyanocobala min Cyanocobala min 0 - 00:00: 00 No 1000ug [facility] Cyanocobala min Cyanocobala min 0 11-06 00:00: 00 No 1000ug [facility] Cyanocobala min Cyanocobala min 0 - 00:00: 00 No 1000ug [facility] Cyanocobala min Cyanocobala min 3-0 5-17 00:00: 00 No 1000ug [facility] Cyanocobala min Cyanocobala min 2022-0 -17 00:00: 00 No 1000ug [facility] Cyanocobala min Cyanocobala min 2022-0 5-17 00:00: 00 No 1000ug [facility] Cyanocobala min Cyanocobala min 2022-0 -17 00:00: 00 No 1000ug [facility] Cyanocobala min Cyanocobala min 2022-0 -17 00:00: 00 No 1000ug [facility] Cyanocobala min Cyanocobala min 2022-0 -17 00:00: 00 No 1000ug [facility] Cyanocobala min Cyanocobala min 2022-0 -17 00:00: 00 No 1000ug [facility] Cyanocobala min Cyanocobala min 2022-0 -17 00:00: 00 No 1000ug [facility] Cyanocobala min Cyanocobala min 2022-0 -17 00:00: 00 No 1000ug [facility] Cyanocobala min Cyanocobala min 2022-0 -17 00:00: 00 No 1000ug [facility] Cyanocobala min Cyanocobala min 2022-0 -17 00:00: 00 No 1000ug [facility] Cyanocobala min Cyanocobala min 2022-0 5-17 00:00: 00 No 1000ug [facility] Cyanocobala min Cyanocobala min 2022-0 5-17 00:00: 00 No 1000ug [facility] Cyanocobala min Cyanocobala min 2022-0 5-17 00:00: 00 No 1000ug [facility] Cyanocobala min Cyanocobala min 2022-0 5-17 00:00: 00 No 1000ug [facility] Cyanocobala min Cyanocobala min 3-0 -17 00:00: 00 No 1000ug [facility] Cyanocobala min Cyanocobala min 2022-0 -17 00:00: 00 No 1000ug [facility] Cyanocobala min Cyanocobala min 3-0 -17 00:00: 00 No 1000ug [facility] Cyanocobala min Cyanocobala min 3-0 -17 00:00: 00 No 1000ug [facility] Ciprofloxac in HCl 500 MG Ciprofloxac in HCl 500 MG 3-0 -21 00:00: 00 No 1{table t} BID Ciprofloxa keshia HCl 500 MG Ciprofloxac in HCl 500 MG Ciprofloxac in HCl 500 MG 3-0 -21 00:00: 00 No 1{table t} BID Ciprofloxa keshia HCl 500 MG Ciprofloxac in HCl 500 MG Ciprofloxac in HCl 500 MG 3-0 -21 00:00: 00 No 1{table t} BID Ciprofloxa keshia HCl 500 MG Ciprofloxac in HCl 500 MG Ciprofloxac in HCl 500 MG 3-0 -21 00:00: 00 No 1{table t} BID Ciprofloxa keshia HCl 500 MG Ciprofloxac in HCl 500 MG Ciprofloxac in HCl 500 MG 3-0 -21 00:00: 00 No 1{table t} BID Ciprofloxa keshia HCl 500 MG Ciprofloxac in HCl 500 MG Ciprofloxac in HCl 500 MG 3-0 -21 00:00: 00 No 1{table t} BID Ciprofloxa keshia HCl 500 MG Ciprofloxac in HCl 500 MG Ciprofloxac in HCl 500 MG 3-0 4-21 00:00: 00 No 1{table t} BID Ciprofloxa keshia HCl 500 MG Ciprofloxac in HCl 500 MG Ciprofloxac in HCl 500 MG 3-0 4-21 00:00: 00 No 1{table t} BID Ciprofloxa keshia HCl 500 MG Ciprofloxac in HCl 500 MG Ciprofloxac in HCl 500 MG 3-0 21 00:00: 00 No 1{table t} BID Ciprofloxa keshia HCl 500 MG Ciprofloxac in HCl 500 MG Ciprofloxac in HCl 500 MG 3-0 421 00:00: 00 No 1{table t} BID Ciprofloxa keshia HCl 500 MG Ciprofloxac in HCl 500 MG Ciprofloxac in HCl 500 MG 3-0 4-21 00:00: 00 No 1{table t} BID Ciprofloxa keshia HCl 500 MG Ciprofloxac in HCl 500 MG Ciprofloxac in HCl 500 MG 3-0 10-11 00:00: 00 No 1{table t} BID Ciprofloxa keshia HCl 500 MG Ciprofloxac in HCl 500 MG Ciprofloxac in HCl 500 MG 3-0 10-11 00:00: 00 No 1{table t} BID Ciprofloxa keshia HCl 500 MG Ciprofloxac in HCl 500 MG Ciprofloxac in HCl 500 MG 3-0 10-11 00:00: 00 No 1{table t} BID Ciprofloxa keshia HCl 500 MG Ciprofloxac in HCl 500 MG Ciprofloxac in HCl 500 MG 3-0 10-11 00:00: 00 No 1{table t} BID Ciprofloxa keshia HCl 500 MG Ciprofloxac in HCl 500 MG Ciprofloxac in HCl 500 MG 3-0 10-11 00:00: 00 No 1{table t} BID Ciprofloxa keshia HCl 500 MG Ciprofloxac in HCl 500 MG Ciprofloxac in HCl 500 MG 3-0 21 00:00: 00 No 1{table t} BID Ciprofloxa keshia HCl 500 MG Ciprofloxac in HCl 500 MG Ciprofloxac in HCl 500 MG 3-0 21 00:00: 00 No 1{table t} BID Ciprofloxa keshia HCl 500 MG Ciprofloxac in HCl 500 MG Ciprofloxac in HCl 500 MG 3-0 10-11 00:00: 00 No 1{table t} BID Ciprofloxa keshia HCl 500 MG Ciprofloxac in HCl 500 MG Ciprofloxac in HCl 500 MG 3-0 4-21 00:00: 00 No 1{table t} BID Ciprofloxa keshia HCl 500 MG Ciprofloxac in HCl 500 MG Ciprofloxac in HCl 500 MG 3-0 4-21 00:00: 00 No 1{table t} BID Ciprofloxa keshia HCl 500 MG Ciprofloxac in HCl 500 MG Ciprofloxac in HCl 500 MG 3-0 4-21 00:00: 00 No 1{table t} BID Ciprofloxa keshia HCl 500 MG Ciprofloxac in HCl 500 MG Ciprofloxac in HCl 500 MG 3-0 4 00:00: 00 No 1{table t} BID Ciprofloxa keshia HCl 500 MG Ciprofloxac in HCl 500 MG Ciprofloxac in HCl 500 MG 3-0 4 00:00: 00 No 1{table t} BID Ciprofloxa keshia HCl 500 MG Ciprofloxac in HCl 500 MG Ciprofloxac in HCl 500 MG 3-0 21 00:00: 00 No 1{table t} BID Ciprofloxa keshia HCl 500 MG Vitamin B12 (Cyanocobal nayak) Vitamin B12 (Cyanocobal nayak) 07-23 00:00: 00 No 1000ug [facility] Cyanocobala min Cyanocobala min 07-23 00:00: 00 No 1000ug [facility] Cyanocobala min Cyanocobala min 07-23 00:00: 00 No 1000ug [facility] Cyanocobala min Cyanocobala min 0 07-23 00:00: 00 No 1000ug [facility] Cyanocobala min Cyanocobala min 07-23 00:00: 00 No 1000ug [facility] Cyanocobala min Cyanocobala min 07-23 00:00: 00 No 1000ug [facility] Cyanocobala min Cyanocobala min 07-23 00:00: 00 No 1000ug [facility] Cyanocobala min Cyanocobala min 0 07-23 00:00: 00 No 1000ug [facility] Cyanocobala min Cyanocobala min 0 07-23 00:00: 00 No 1000ug [facility] Cyanocobala min Cyanocobala min 0 07-23 00:00: 00 No 1000ug [facility] Cyanocobala min Cyanocobala min 0 07-23 00:00: 00 No 1000ug [facility] Cyanocobala min Cyanocobala min 0 07-23 00:00: 00 No 1000ug [facility] Cyanocobala min Cyanocobala min 0 07-23 00:00: 00 No 1000ug [facility] Cyanocobala min Cyanocobala min 0 07-23 00:00: 00 No 1000ug [facility] Cyanocobala min Cyanocobala min 0 07-23 00:00: 00 No 1000ug [facility] Cyanocobala min Cyanocobala min 0 07-23 00:00: 00 No 1000ug [facility] Cyanocobala min Cyanocobala min 0 07-23 00:00: 00 No [facility] Cyanocobala min Cyanocobala min 0 07-23 00:00: 00 No 1000[facility] Cyanocobala min Cyanocobala min 0 07-23 00:00: 00 No 1000[facility] Cyanocobala min Cyanocobala min 0 07-23 00:00: 00 No 1000[facility] Cyanocobala min Cyanocobala min 0 07-23 00:00: 00 No [facility] Cyanocobala min Cyanocobala min 0 1- 00:00: 00 No 1000ug [facility] Cyanocobala min Cyanocobala min 0 1- 00:00: 00 No 1000ug [facility] Cyanocobala min Cyanocobala min 0 1- 00:00: 00 No 1000ug [facility] Cyanocobala min Cyanocobala min 0 1- 00:00: 00 No 1000ug [facility] Cyanocobala min Cyanocobala min 0 - 00:00: 00 No 1000ug [facility] methylPREDN ISolone 4 MG methylPREDN ISolone 4 MG 1- 00:00: 00 07-07 00:00 :00 No QD methylPRED NISolone 4 MG methylPREDN ISolone 4 MG methylPREDN ISolone 4 MG 1- 00:00: 00 07-07 00:00 :00 No QD methylPRED NISolone 4 MG Azithromyci n 250 MG Azithromyci n 250 MG 0 1- 00:00: 00 07-06 00:00 :00 No QD Azithromyc in 250 MG Azithromyci n 250 MG Azithromyci n 250 MG 0 1- 00:00: 00 07-06 00:00 :00 No QD Azithromyc in 250 MG Vitamin B12 (Cyanocobal nayak) Vitamin B12 (Cyanocobal nayak) 2021-06 00:00: 00 No 1000ug [facility] Vitamin B12 (Cyanocobal nayak) Vitamin B12 (Cyanocobal nayak) 2021-06 00:00: 00 No 1000ug [facility] Vitamin B12 (Cyanocobal nayak) Vitamin B12 (Cyanocobal nayak) 2021-06 00:00: 00 No 1000ug [facility] Vitamin B12 (Cyanocobal nayak) Vitamin B12 (Cyanocobal nayak) 2021-06 00:00: 00 No [facility] Cyanocobala min Cyanocobala min 2021-06-14 00:00: 00 No [facility] Cyanocobala min Cyanocobala min 2021-06-14 00:00: 00 No [facility] Cyanocobala min Cyanocobala min 2021-06-14 00:00: 00 No [facility] Cyanocobala min Cyanocobala min 2021-06-14 00:00: 00 No [facility] Cyanocobala min Cyanocobala min 2021-06-14 00:00: 00 No [facility] Cyanocobala min Cyanocobala min 2021-06- 00:00: 00 No [facility] Cyanocobala min Cyanocobala min 2021-06- 00:00: 00 No [facility] Cyanocobala min Cyanocobala min 2021-06-14 00:00: 00 No [facility] Cyanocobala min Cyanocobala min 2021-06-14 00:00: 00 No [facility] Cyanocobala min Cyanocobala min 2021-06-14 00:00: 00 No [facility] Cyanocobala min Cyanocobala min 2021-06-14 00:00: 00 No [facility] Cyanocobala min Cyanocobala min 2021-06-14 00:00: 00 No [facility] Cyanocobala min Cyanocobala min 2021-06-14 00:00: 00 No [facility] Cyanocobala min Cyanocobala min 2021-06 2-14 00:00: 00 No [facility] Cyanocobala min Cyanocobala min 2021-06-14 00:00: 00 No [facility] Cyanocobala min Cyanocobala min 2021-06 00:00: 00 No [facility] Cyanocobala min Cyanocobala min 2021-06 00:00: 00 No [facility] Cyanocobala min Cyanocobala min 2021-06 00:00: 00 No 1000[facility] Cyanocobala min Cyanocobala min 2021-06 00:00: 00 No 1000[facility] Cyanocobala min Cyanocobala min 2021-06 00:00: 00 No 1000ug [facility] Cyanocobala min Cyanocobala min 2021-06 00:00: 00 No 1000ug [facility] Cyanocobala min Cyanocobala min 2021-06 00:00: 00 No 1000ug [facility] Cyanocobala min Cyanocobala min 2021-06 00:00: 00 No 1000ug [facility] Cyanocobala min Cyanocobala min 2021-06 00:00: 00 No 1000ug [facility] Cyanocobala min Cyanocobala min 2021-06 00:00: 00 No [facility] Vitamin B12 (Cyanocobal nayak) Vitamin B12 (Cyanocobal nayak) 2021-06 00:00: 00 No [facility] Vitamin B12 (Cyanocobal nayak) Vitamin B12 (Cyanocobal nayak) 2021-06 00:00: 00 No 1000ug [facility] Vitamin B12 (Cyanocobal nayak) Vitamin B12 (Cyanocobal nayak) 2021-06 00:00: 00 No 1000ug [facility] Vitamin B12 (Cyanocobal nayak) Vitamin B12 (Cyanocobal nayak) 2021-06 00:00: 00 No [facility] Vitamin B12 (Cyanocobal nayak) Vitamin B12 (Cyanocobal nayak) 2021-06 00:00: 00 No 1000[facility] Vitamin B12 (Cyanocobal nayak) Vitamin B12 (Cyanocobal nayak) 2021-06 00:00: 00 No 1000[facility] Vitamin B12 (Cyanocobal nayak) Vitamin B12 (Cyanocobal nayak) 2021-06 00:00: 00 No 1000[facility] Cyanocobala min Cyanocobala min 2021-06 00:00: 00 No 1000ug [facility] Cyanocobala min Cyanocobala min 2021-06 00:00: 00 No 1000ug [facility] Cyanocobala min Cyanocobala min 2021-06 00:00: 00 No 1000ug [facility] Cyanocobala min Cyanocobala min 2021-06 00:00: 00 No 1000ug [facility] Cyanocobala min Cyanocobala min 2021-06 00:00: 00 No 1000ug [facility] Cyanocobala min Cyanocobala min 2021-06 00:00: 00 No 1000ug [facility] Cyanocobala min Cyanocobala min 2021-06 00:00: 00 No [facility] Cyanocobala min Cyanocobala min 2021-06 00:00: 00 No 1000[facility] Cyanocobala min Cyanocobala min 2021-06 00:00: 00 No 1000ug [facility] Cyanocobala min Cyanocobala min 2021-06 00:00: 00 No 1000ug [facility] Cyanocobala min Cyanocobala min 2021-06 00:00: 00 No [facility] Cyanocobala min Cyanocobala min 2021-06 00:00: 00 No [facility] Cyanocobala min Cyanocobala min 2021-06 00:00: 00 No [facility] Cyanocobala min Cyanocobala min 2021-06 00:00: 00 No [facility] Cyanocobala min Cyanocobala min 2021-06 00:00: 00 No 1000[facility] Cyanocobala min Cyanocobala min 2021-06 00:00: 00 No 1000ug [facility] Cyanocobala min Cyanocobala min 2021-06 00:00: 00 No [facility] Cyanocobala min Cyanocobala min 2021-06 00:00: 00 No 1000[facility] Cyanocobala min Cyanocobala min 2021-06 00:00: 00 No 1000[facility] Cyanocobala min Cyanocobala min 2021-06 00:00: 00 No 1000ug [facility] Cyanocobala min Cyanocobala min 2021-06 00:00: 00 No 1000[facility] Cyanocobala min Cyanocobala min 2021-06 00:00: 00 No 1000[facility] Cyanocobala min Cyanocobala min 2021-06 00:00: 00 No 1000[facility] Cyanocobala min Cyanocobala min 2021-06 00:00: 00 No 1000ug [facility] Cyanocobala min Cyanocobala min 2021-06 00:00: 00 No 1000ug [facility] TAKE 1 TABLET BY MOUTH TWICE A DAY FOR 7 DAYS 2021-06 0-19 00:00: 00 No Vitamin B12 (Cyanocobal nayak) Vitamin B12 (Cyanocobal nayak) 2021-06 0-05 00:00: 00 No 1000ug [facility] Vitamin B12 (Cyanocobal nayak) Vitamin B12 (Cyanocobal nayak) 2021-06 0-05 00:00: 00 No 1000ug [facility] Vitamin B12 (Cyanocobal nayak) Vitamin B12 (Cyanocobal nayak) 2021-06 0-05 00:00: 00 No 1000ug [facility] Vitamin B12 (Cyanocobal nayak) Vitamin B12 (Cyanocobal nayak) 2021-06 0-05 00:00: 00 No 1000ug [facility] Vitamin B12 (Cyanocobal nayak) Vitamin B12 (Cyanocobal nayak) 2021-06 0-05 00:00: 00 No 1000ug [facility] Vitamin B12 (Cyanocobal nayak) Vitamin B12 (Cyanocobal nayak) 2021-06 0-05 00:00: 00 No 1000ug [facility] Vitamin B12 (Cyanocobal nayak) Vitamin B12 (Cyanocobal nayak) 2021-06 0-05 00:00: 00 No 1000ug [facility] Vitamin B12 (Cyanocobal nayak) Vitamin B12 (Cyanocobal nayak) 2021-06 0-05 00:00: 00 No 1000ug [facility] Vitamin B12 (Cyanocobal nayak) Vitamin B12 (Cyanocobal nayak) 2021-06 0-05 00:00: 00 No 1000ug [facility] Vitamin B12 (Cyanocobal nayak) Vitamin B12 (Cyanocobal nayak) 2021-06 0-05 00:00: 00 No 1000ug [facility] Cyanocobala min Cyanocobala min 2021-06 0-05 00:00: 00 No 1000ug [facility] Cyanocobala min Cyanocobala min 2021-06 0-05 00:00: 00 No 1000ug [facility] Cyanocobala min Cyanocobala min 2021-06 0-05 00:00: 00 No [facility] Cyanocobala min Cyanocobala min 2021-06 0-05 00:00: 00 No [facility] Cyanocobala min Cyanocobala min 2021-06 0-05 00:00: 00 No 1000[facility] Cyanocobala min Cyanocobala min 2021-06 0-05 00:00: 00 No 1000[facility] Cyanocobala min Cyanocobala min 2021-06 0-05 00:00: 00 No 1000[facility] Cyanocobala min Cyanocobala min 2021-06 0-05 00:00: 00 No [facility] Cyanocobala min Cyanocobala min 2021-06 0-05 00:00: 00 No 1000[facility] Cyanocobala min Cyanocobala min 2021-06 0-05 00:00: 00 No [facility] Cyanocobala min Cyanocobala min 2021-06 0-05 00:00: 00 No 1000[facility] Cyanocobala min Cyanocobala min 2021-06 0-05 00:00: 00 No 1000[facility] Cyanocobala min Cyanocobala min 2021-06 0-05 00:00: 00 No 1000[facility] Cyanocobala min Cyanocobala min 2021-06 0-05 00:00: 00 No 1000[facility] Cyanocobala min Cyanocobala min 2021-06 0-05 00:00: 00 No 1000[facility] Cyanocobala min Cyanocobala min 2021-06 0-05 00:00: 00 No 1000[facility] Cyanocobala min Cyanocobala min 2021-06 0-05 00:00: 00 No 1000[facility] Cyanocobala min Cyanocobala min 2021-06 0-05 00:00: 00 No [facility] Cyanocobala min Cyanocobala min 2021-06 0-05 00:00: 00 No 1000[facility] Cyanocobala min Cyanocobala min 2021-06 0-05 00:00: 00 No 1000[facility] Cyanocobala min Cyanocobala min 2021-06 0-05 00:00: 00 No 1000[facility] Cyanocobala min Cyanocobala min 2021-06 0-05 00:00: 00 No 1000ug [facility] Cyanocobala min Cyanocobala min 2021-06 0-05 00:00: 00 No 1000ug [facility] Cyanocobala min Cyanocobala min 2021-06 0-05 00:00: 00 No 1000ug [facility] Cyanocobala min Cyanocobala min 2021-06 0-05 00:00: 00 No 1000ug [facility] Vitamin B12 (Cyanocobal nayak) Vitamin B12 (Cyanocobal nayak) 0 8-23 00:00: 00 No 1000ug [facility] Vitamin B12 (Cyanocobal nayak) Vitamin B12 (Cyanocobal nayak) 0 8-23 00:00: 00 No 1000ug [facility] Vitamin B12 (Cyanocobal nayak) Vitamin B12 (Cyanocobal nayak) 0 8-23 00:00: 00 No [facility] Vitamin B12 (Cyanocobal nayak) Vitamin B12 (Cyanocobal nayak) 2021-0 8-23 00:00: 00 No 1000ug [facility] Vitamin B12 (Cyanocobal nayak) Vitamin B12 (Cyanocobal nayak) 0 8-23 00:00: 00 No 1000ug [facility] Vitamin B12 (Cyanocobal nayak) Vitamin B12 (Cyanocobal nayak) 0 8- 00:00: 00 No 1000ug [facility] Vitamin B12 (Cyanocobal nayak) Vitamin B12 (Cyanocobal nayak) 2021-0 8- 00:00: 00 No 1000ug [facility] Vitamin B12 (Cyanocobal nayak) Vitamin B12 (Cyanocobal nayak) 0 8- 00:00: 00 No 1000ug [facility] Vitamin B12 (Cyanocobal nayak) Vitamin B12 (Cyanocobal nayak) 0 8 00:00: 00 No 1000ug [facility] Vitamin B12 (Cyanocobal nayak) Vitamin B12 (Cyanocobal nayak) 0 02-12 00:00: 00 No 1000ug [facility] Vitamin B12 (Cyanocobal nayak) Vitamin B12 (Cyanocobal nayak) 0 02-12 00:00: 00 No 1000ug [facility] Cyanocobala min Cyanocobala min 0 8- 00:00: 00 No 1000ug [facility] Cyanocobala min Cyanocobala min 0 02-12 00:00: 00 No 1000ug [facility] Cyanocobala min Cyanocobala min 0 8- 00:00: 00 No 1000ug [facility] Cyanocobala min Cyanocobala min 0 8- 00:00: 00 No 1000ug [facility] Cyanocobala min Cyanocobala min 2021-0 8- 00:00: 00 No 1000ug [facility] Cyanocobala min Cyanocobala min 0 8- 00:00: 00 No 1000ug [facility] Cyanocobala min Cyanocobala min 0 8- 00:00: 00 No 1000ug [facility] Cyanocobala min Cyanocobala min 2021-0 8- 00:00: 00 No 1000ug [facility] Cyanocobala min Cyanocobala min 2021-0 8- 00:00: 00 No [facility] Cyanocobala min Cyanocobala min 2021-0 8- 00:00: 00 No [facility] Cyanocobala min Cyanocobala min 2021-0 8- 00:00: 00 No [facility] Cyanocobala min Cyanocobala min 2021-0 8- 00:00: 00 No [facility] Cyanocobala min Cyanocobala min 2021-0 8- 00:00: 00 No [facility] Cyanocobala min Cyanocobala min 2021-0 8- 00:00: 00 No [facility] Cyanocobala min Cyanocobala min 2021-0 02-12 00:00: 00 No [facility] Cyanocobala min Cyanocobala min 2021-0 - 00:00: 00 No [facility] Cyanocobala min Cyanocobala min 2021-0 02-12 00:00: 00 No [facility] Cyanocobala min Cyanocobala min 2021-0 02-12 00:00: 00 No [facility] Cyanocobala min Cyanocobala min 2021-0 8 00:00: 00 No [facility] Cyanocobala min Cyanocobala min 2021-0 - 00:00: 00 No [facility] Cyanocobala min Cyanocobala min 2021-0 8- 00:00: 00 No [facility] Cyanocobala min Cyanocobala min 2021-0 8- 00:00: 00 No [facility] Cyanocobala min Cyanocobala min 2021-0 8- 00:00: 00 No [facility] Cyanocobala min Cyanocobala min 0 02-12 00:00: 00 No 1000ug [facility] Cyanocobala min Cyanocobala min 0 02-12 00:00: 00 No 1000ug [facility] Vitamin B12 (Cyanocobal nayak) Vitamin B12 (Cyanocobal nayak) 0 8 00:00: 00 No 1000ug [facility] Vitamin B12 (Cyanocobal nayak) Vitamin B12 (Cyanocobal nayak) 0 01-29 00:00: 00 No 1000ug [facility] Vitamin B12 (Cyanocobal nayak) Vitamin B12 (Cyanocobal nayak) 0 01-29 00:00: 00 No 1000ug [facility] Vitamin B12 (Cyanocobal nayak) Vitamin B12 (Cyanocobal nayak) 0 01-29 00:00: 00 No 1000ug [facility] Vitamin B12 (Cyanocobal nayak) Vitamin B12 (Cyanocobal nayak) 0 01-29 00:00: 00 No 1000ug [facility] Vitamin B12 (Cyanocobal nayak) Vitamin B12 (Cyanocobal nayak) 0 01-29 00:00: 00 No 1000ug [facility] Vitamin B12 (Cyanocobal nayak) Vitamin B12 (Cyanocobal nayak) 0 01-29 00:00: 00 No 1000ug [facility] Vitamin B12 (Cyanocobal nayak) Vitamin B12 (Cyanocobal nayak) 0 01-29 00:00: 00 No 1000ug [facility] Vitamin B12 (Cyanocobal nayak) Vitamin B12 (Cyanocobal nayak) 0 8 00:00: 00 No 1000ug [facility] Vitamin B12 (Cyanocobal nayak) Vitamin B12 (Cyanocobal nayak) 0 8 00:00: 00 No 1000ug [facility] Vitamin B12 (Cyanocobal nayak) Vitamin B12 (Cyanocobal nayak) 0 8- 00:00: 00 No 1000ug [facility] Vitamin B12 (Cyanocobal nayak) Vitamin B12 (Cyanocobal nayak) 0 - 00:00: 00 No 1000ug [facility] Vitamin B12 (Cyanocobal nayak) Vitamin B12 (Cyanocobal nayak) 0 01-29 00:00: 00 No 1000ug [facility] Vitamin B12 (Cyanocobal nayak) Vitamin B12 (Cyanocobal nayak) 0 8- 00:00: 00 No 1000ug [facility] Vitamin B12 (Cyanocobal nayak) Vitamin B12 (Cyanocobal nayak) 0 01-29 00:00: 00 No 1000ug [facility] Vitamin B12 (Cyanocobal nayak) Vitamin B12 (Cyanocobal nayak) 0 01-29 00:00: 00 No 1000ug [facility] Vitamin B12 (Cyanocobal nayak) Vitamin B12 (Cyanocobal nayak) 0 01-29 00:00: 00 No 1000ug [facility] Vitamin B12 (Cyanocobal nayak) Vitamin B12 (Cyanocobal nayak) 0 01-29 00:00: 00 No 1000ug [facility] Vitamin B12 (Cyanocobal nayak) Vitamin B12 (Cyanocobal nayak) 0 01-29 00:00: 00 No 1000ug [facility] Vitamin B12 (Cyanocobal nayak) Vitamin B12 (Cyanocobal nayak) 0 8 00:00: 00 No 1000ug [facility] Vitamin B12 (Cyanocobal nayak) Vitamin B12 (Cyanocobal nayak) 0 8 00:00: 00 No 1000ug [facility] Vitamin B12 (Cyanocobal nayak) Vitamin B12 (Cyanocobal nayak) 0 8- 00:00: 00 No 1000ug [facility] Vitamin B12 (Cyanocobal nayak) Vitamin B12 (Cyanocobal nayak) 0 8- 00:00: 00 No 1000ug [facility] Vitamin B12 (Cyanocobal nayak) Vitamin B12 (Cyanocobal nayak) 0 8- 00:00: 00 No [facility] Vitamin B12 (Cyanocobal nayak) Vitamin B12 (Cyanocobal nayak) 2021-0 8- 00:00: 00 No 1000ug [facility] Vitamin B12 (Cyanocobal nayak) Vitamin B12 (Cyanocobal nayak) 2021-0 8- 00:00: 00 No 1000ug [facility] Vitamin B12 (Cyanocobal nayak) Vitamin B12 (Cyanocobal nayak) 0 8 00:00: 00 No 1000ug [facility] Vitamin B12 (Cyanocobal nayak) Vitamin B12 (Cyanocobal nayak) 0 8 00:00: 00 No 1000ug [facility] Vitamin B12 (Cyanocobal nayak) Vitamin B12 (Cyanocobal nayak) 0 01-29 00:00: 00 No 1000ug [facility] Vitamin B12 (Cyanocobal nayak) Vitamin B12 (Cyanocobal nayak) 0 01-29 00:00: 00 No 1000ug [facility] Vitamin B12 (Cyanocobal nayak) Vitamin B12 (Cyanocobal nayak) 0 01-29 00:00: 00 No 1000ug [facility] Vitamin B12 (Cyanocobal nayak) Vitamin B12 (Cyanocobal nayak) 0 01-29 00:00: 00 No 1000ug [facility] Vitamin B12 (Cyanocobal nayak) Vitamin B12 (Cyanocobal nayak) 0 8- 00:00: 00 No 1000ug [facility] Vitamin B12 (Cyanocobal nayak) Vitamin B12 (Cyanocobal nayak) 0 8 00:00: 00 No 1000ug [facility] Vitamin B12 (Cyanocobal nayak) Vitamin B12 (Cyanocobal nayak) 0 8 00:00: 00 No 1000ug [facility] Vitamin B12 (Cyanocobal nayak) Vitamin B12 (Cyanocobal nayak) 2021-0 8- 00:00: 00 No 1000[facility] Vitamin B12 (Cyanocobal nayak) Vitamin B12 (Cyanocobal nayak) 2021-0 8-09 00:00: 00 No 1000ug [facility] Vitamin B12 (Cyanocobal nayak) Vitamin B12 (Cyanocobal nayak) 0 - 00:00: 00 No 1000ug [facility] Vitamin B12 (Cyanocobal nayak) Vitamin B12 (Cyanocobal nayak) 0 - 00:00: 00 No 1000ug [facility] Vitamin B12 (Cyanocobal nayak) Vitamin B12 (Cyanocobal nayak) 0 01-17 00:00: 00 No 1000ug [facility] Vitamin B12 (Cyanocobal nayak) Vitamin B12 (Cyanocobal nayak) 0 01-17 00:00: 00 No 1000ug [facility] Vitamin B12 (Cyanocobal nayak) Vitamin B12 (Cyanocobal nayak) 0 01-17 00:00: 00 No 1000ug [facility] Vitamin B12 (Cyanocobal nayak) Vitamin B12 (Cyanocobal nayak) 0 01-17 00:00: 00 No 1000ug [facility] Vitamin B12 (Cyanocobal nayak) Vitamin B12 (Cyanocobal nayak) 0 01-17 00:00: 00 No 1000ug [facility] Vitamin B12 (Cyanocobal nayak) Vitamin B12 (Cyanocobal nayak) 0 01-17 00:00: 00 No 1000ug [facility] Vitamin B12 (Cyanocobal nayak) Vitamin B12 (Cyanocobal nayak) 0 01-17 00:00: 00 No 1000ug [facility] Vitamin B12 (Cyanocobal nayak) Vitamin B12 (Cyanocobal nayak) 0 - 00:00: 00 No 1000ug [facility] Vitamin B12 (Cyanocobal nayak) Vitamin B12 (Cyanocobal nayak) 0 - 00:00: 00 No 1000ug [facility] Vitamin B12 (Cyanocobal nayak) Vitamin B12 (Cyanocobal nayak) 0 01-17 00:00: 00 No [facility] Vitamin B12 (Cyanocobal nayak) Vitamin B12 (Cyanocobal nayak) 0 01-17 00:00: 00 No 1000[facility] Vitamin B12 (Cyanocobal nayak) Vitamin B12 (Cyanocobal nayak) 0 01-17 00:00: 00 No 1000[facility] Vitamin B12 (Cyanocobal nayak) Vitamin B12 (Cyanocobal nayak) 0 01-17 00:00: 00 No 1000[facility] Vitamin B12 (Cyanocobal nayak) Vitamin B12 (Cyanocobal nayak) 0 01-17 00:00: 00 No 1000ug [facility] Vitamin B12 (Cyanocobal nayak) Vitamin B12 (Cyanocobal nayak) 0 01-17 00:00: 00 No 1000ug [facility] Vitamin B12 (Cyanocobal nayak) Vitamin B12 (Cyanocobal nayak) 0 01-17 00:00: 00 No 1000ug [facility] Vitamin B12 (Cyanocobal nayak) Vitamin B12 (Cyanocobal nayak) 0 01-17 00:00: 00 No 1000ug [facility] Vitamin B12 (Cyanocobal nayak) Vitamin B12 (Cyanocobal nayak) 0 01-17 00:00: 00 No 1000ug [facility] Vitamin B12 (Cyanocobal nayak) Vitamin B12 (Cyanocobal nayak) 0 01-17 00:00: 00 No 1000[facility] Vitamin B12 (Cyanocobal nayak) Vitamin B12 (Cyanocobal nayak) 0 01-17 00:00: 00 No 1000ug [facility] Vitamin B12 (Cyanocobal nayak) Vitamin B12 (Cyanocobal nayak) 0 01-17 00:00: 00 No 1000[facility] Vitamin B12 (Cyanocobal nayak) Vitamin B12 (Cyanocobal nayak) 0 01-17 00:00: 00 No [facility] Vitamin B12 (Cyanocobal nayak) Vitamin B12 (Cyanocobal nayak) 0 01-17 00:00: 00 No 1000[facility] Vitamin B12 (Cyanocobal nayak) Vitamin B12 (Cyanocobal nayak) 0 01-17 00:00: 00 No 1000[facility] Vitamin B12 (Cyanocobal nayak) Vitamin B12 (Cyanocobal nayak) 0 01-17 00:00: 00 No 1000[facility] Vitamin B12 (Cyanocobal nayak) Vitamin B12 (Cyanocobal nayak) 0 01-17 00:00: 00 No 1000[facility] Vitamin B12 (Cyanocobal nayak) Vitamin B12 (Cyanocobal nayak) 0 01-17 00:00: 00 No 1000[facility] Vitamin B12 (Cyanocobal nayak) Vitamin B12 (Cyanocobal nayak) 0 01-17 00:00: 00 No 1000[facility] Vitamin B12 (Cyanocobal nayak) Vitamin B12 (Cyanocobal nayak) 0 01-17 00:00: 00 No 1000[facility] Vitamin B12 (Cyanocobal nayak) Vitamin B12 (Cyanocobal nayak) 0 01-17 00:00: 00 No 1000[facility] Vitamin B12 (Cyanocobal nayak) Vitamin B12 (Cyanocobal nayak) 0 01-17 00:00: 00 No 1000[facility] Vitamin B12 (Cyanocobal nayak) Vitamin B12 (Cyanocobal nayak) 0 01-17 00:00: 00 No 1000[facility] Vitamin B12 (Cyanocobal nayak) Vitamin B12 (Cyanocobal nayak) 0 01-17 00:00: 00 No 1000[facility] Vitamin B12 (Cyanocobal nayak) Vitamin B12 (Cyanocobal nayak) 0 01-17 00:00: 00 No 1000[facility] Vitamin B12 (Cyanocobal nayak) Vitamin B12 (Cyanocobal nayak) 0 7- 00:00: 00 No [facility] Vitamin B12 (Cyanocobal nayak) Vitamin B12 (Cyanocobal nayak) 2021-0 01-17 00:00: 00 No [facility] Vitamin B12 (Cyanocobal nayak) Vitamin B12 (Cyanocobal nayak) 2021-0 7-14 00:00: 00 No [facility] Vitamin B12 (Cyanocobal nayak) Vitamin B12 (Cyanocobal nayak) 0 14 00:00: 00 No [facility] Vitamin B12 (Cyanocobal nayak) Vitamin B12 (Cyanocobal nayak) 2021-0 - 00:00: 00 No 1000[facility] Vitamin B12 (Cyanocobal nayak) Vitamin B12 (Cyanocobal nayak) 2021-0 01-03 00:00: 00 No 1000[facility] Vitamin B12 (Cyanocobal nayak) Vitamin B12 (Cyanocobal nayak) 0 - 00:00: 00 No 1000[facility] Vitamin B12 (Cyanocobal nayak) Vitamin B12 (Cyanocobal nayak) 0 01-03 00:00: 00 No 1000[facility] Vitamin B12 (Cyanocobal nayak) Vitamin B12 (Cyanocobal nayak) 2021-0 - 00:00: 00 No 1000[facility] Vitamin B12 (Cyanocobal nayak) Vitamin B12 (Cyanocobal nayak) 0 -14 00:00: 00 No [facility] Vitamin B12 (Cyanocobal nayak) Vitamin B12 (Cyanocobal nayak) 2021-0 7-14 00:00: 00 No 1000[facility] Vitamin B12 (Cyanocobal nayak) Vitamin B12 (Cyanocobal nayak) 2021-0 7-14 00:00: 00 No 1000[facility] Vitamin B12 (Cyanocobal nayak) Vitamin B12 (Cyanocobal nayak) 2021-0 7-14 00:00: 00 No [facility] Vitamin B12 (Cyanocobal nayak) Vitamin B12 (Cyanocobal nayak) 2021-0 7-14 00:00: 00 No 1000[facility] Vitamin B12 (Cyanocobal nayak) Vitamin B12 (Cyanocobal nayak) 0 -14 00:00: 00 No 1000[facility] Vitamin B12 (Cyanocobal nayak) Vitamin B12 (Cyanocobal nayak) 0 7-14 00:00: 00 No 1000[facility] Vitamin B12 (Cyanocobal nayak) Vitamin B12 (Cyanocobal nayak) 0 7-14 00:00: 00 No 1000[facility] Vitamin B12 (Cyanocobal nayak) Vitamin B12 (Cyanocobal nayak) 0 -14 00:00: 00 No 1000[facility] Vitamin B12 (Cyanocobal nayak) Vitamin B12 (Cyanocobal nayak) 0 -14 00:00: 00 No 1000[facility] Vitamin B12 (Cyanocobal nayak) Vitamin B12 (Cyanocobal nayak) 0 -14 00:00: 00 No 1000[facility] Vitamin B12 (Cyanocobal nayak) Vitamin B12 (Cyanocobal nayak) 0 -14 00:00: 00 No 1000[facility] Vitamin B12 (Cyanocobal nayak) Vitamin B12 (Cyanocobal nayak) 0 7-14 00:00: 00 No 1000[facility] Vitamin B12 (Cyanocobal nayak) Vitamin B12 (Cyanocobal nayak) 2021-0 7-14 00:00: 00 No 1000[facility] Vitamin B12 (Cyanocobal nayak) Vitamin B12 (Cyanocobal nayak) 2021-0 7-14 00:00: 00 No 1000[facility] Vitamin B12 (Cyanocobal nayak) Vitamin B12 (Cyanocobal nayak) 2021-0 7-14 00:00: 00 No 1000[facility] Vitamin B12 (Cyanocobal nayak) Vitamin B12 (Cyanocobal nayak) 2021-0 7-14 00:00: 00 No [facility] Vitamin B12 (Cyanocobal nayak) Vitamin B12 (Cyanocobal nayak) 2021-0 7-14 00:00: 00 No [facility] Vitamin B12 (Cyanocobal nayak) Vitamin B12 (Cyanocobal nayak) 2021-0 7-14 00:00: 00 No [facility] Vitamin B12 (Cyanocobal nayak) Vitamin B12 (Cyanocobal nayak) 0 -14 00:00: 00 No [facility] Vitamin B12 (Cyanocobal nayak) Vitamin B12 (Cyanocobal nayak) 2021-0 -14 00:00: 00 No 1000[facility] Vitamin B12 (Cyanocobal nayak) Vitamin B12 (Cyanocobal nayak) 2021-0 -14 00:00: 00 No 1000[facility] Vitamin B12 (Cyanocobal nayak) Vitamin B12 (Cyanocobal nayak) 0 -14 00:00: 00 No 1000[facility] Vitamin B12 (Cyanocobal nayak) Vitamin B12 (Cyanocobal nayak) 0 -14 00:00: 00 No 1000[facility] Vitamin B12 (Cyanocobal nayak) Vitamin B12 (Cyanocobal nayak) 2021-0 -14 00:00: 00 No 1000[facility] Vitamin B12 (Cyanocobal nayak) Vitamin B12 (Cyanocobal nayak) 2021-0 -14 00:00: 00 No [facility] Vitamin B12 (Cyanocobal nayak) Vitamin B12 (Cyanocobal nayak) 2021-0 7-14 00:00: 00 No 1000[facility] Vitamin B12 (Cyanocobal nayak) Vitamin B12 (Cyanocobal nayak) 2021-0 7-14 00:00: 00 No 1000[facility] Vitamin B12 (Cyanocobal nayak) Vitamin B12 (Cyanocobal nayak) 2021-0 7-14 00:00: 00 No [facility] Vitamin B12 (Cyanocobal nayak) Vitamin B12 (Cyanocobal nayak) 714 00:00: 00 No 1000[facility] Vitamin B12 (Cyanocobal nayak) Vitamin B12 (Cyanocobal nayak) 14 00:00: 00 No 1000[facility] Vitamin B12 (Cyanocobal nayak) Vitamin B12 (Cyanocobal nayak) 14 00:00: 00 No 1000[facility] Vitamin B12 (Cyanocobal nayak) Vitamin B12 (Cyanocobal nayak) 14 00:00: 00 No 1000[facility] Vitamin B12 (Cyanocobal nayak) Vitamin B12 (Cyanocobal nayak) 01-03 00:00: 00 No [facility] scopolamine 1 mg over 3 days 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 12-13 00:00: 00 No 1mg over 3 days Azithromyci n 250 MG Azithromyci n 250 MG 12-13 00:00: 00 12-18 00:00 :00 No QD Azithromyc in 250 MG Dose Unknown 12-11 00:00: 00 No Azithromyci n 500 MG Azithromyci n 500 MG 12-10 00:00: 00 12-11 00:00 :00 No 2{table t} Azithromyc in 500 MG Azithromyci n 500 MG Azithromyci n 500 MG 12-10 00:00: 00 12-11 00:00 :00 No 2{table t} Azithromyc in 500 MG Azithromyci n 500 MG Azithromyci n 500 MG 12-10 00:00: 00 12-11 00:00 :00 No 2{table t} Azithromyc in 500 MG prednisone 20 mg tablet 12-05 00:00: 00 No mg benzonatate 100 mg capsule 12-05 00:00: 00 No 12mg Dose Unknown 12-05 00:00: 00 No Dose Unknown 15 00:00: 00 No Dose Unknown 12-05 00:00: 00 No Dose Unknown 12-05 00:00: 00 No Dose Unknown 12-05 00:00: 00 No Dose Unknown 0 12-05 00:00: 00 No Dose Unknown 12-05 00:00: 00 No Dose Unknown 12-05 00:00: 00 No Scopolamine 1 MG/3DAYS Scopolamine 1 MG/3DAYS 0 6-14 00:00: 00 No Scopolamin e 1 MG/3DAYS Scopolamine 1 MG/3DAYS Scopolamine 1 MG/3DAYS 0 14 00:00: 00 No Scopolamin e 1 MG/3DAYS Scopolamine 1 MG/3DAYS Scopolamine 1 MG/3DAYS 0 614 00:00: 00 No Scopolamin e 1 MG/3DAYS Scopolamine 1 MG/3DAYS Scopolamine 1 MG/3DAYS 0 14 00:00: 00 No Scopolamin e 1 MG/3DAYS Scopolamine 1 MG/3DAYS Scopolamine 1 MG/3DAYS 0 14 00:00: 00 No Scopolamin e 1 MG/3DAYS Scopolamine 1 MG/3DAYS Scopolamine 1 MG/3DAYS 0 614 00:00: 00 No Scopolamin e 1 MG/3DAYS Scopolamine 1 MG/3DAYS Scopolamine 1 MG/3DAYS 0 6-14 00:00: 00 No Scopolamin e 1 MG/3DAYS Scopolamine 1 MG/3DAYS Scopolamine 1 MG/3DAYS 0 6-14 00:00: 00 No Scopolamin e 1 MG/3DAYS Scopolamine 1 MG/3DAYS Scopolamine 1 MG/3DAYS 0 6-14 00:00: 00 No Scopolamin e 1 MG/3DAYS Scopolamine 1 MG/3DAYS Scopolamine 1 MG/3DAYS 2021-0 6-14 00:00: 00 No Scopolamin e 1 MG/3DAYS Scopolamine 1 MG/3DAYS Scopolamine 1 MG/3DAYS 0 6-14 00:00: 00 No Scopolamin e 1 MG/3DAYS Scopolamine 1 MG/3DAYS Scopolamine 1 MG/3DAYS 0 -14 00:00: 00 No Scopolamin e 1 MG/3DAYS Scopolamine 1 MG/3DAYS Scopolamine 1 MG/3DAYS 0 6-14 00:00: 00 No Scopolamin e 1 MG/3DAYS Scopolamine 1 MG/3DAYS Scopolamine 1 MG/3DAYS 0 6-14 00:00: 00 No Scopolamin e 1 MG/3DAYS Scopolamine 1 MG/3DAYS Scopolamine 1 MG/3DAYS 0 14 00:00: 00 No Scopolamin e 1 MG/3DAYS Scopolamine 1 MG/3DAYS Scopolamine 1 MG/3DAYS 0 14 00:00: 00 No Scopolamin e 1 MG/3DAYS Scopolamine 1 MG/3DAYS Scopolamine 1 MG/3DAYS 0 -14 00:00: 00 No Scopolamin e 1 MG/3DAYS Scopolamine 1 MG/3DAYS Scopolamine 1 MG/3DAYS 0 14 00:00: 00 No Scopolamin e 1 MG/3DAYS Scopolamine 1 MG/3DAYS Scopolamine 1 MG/3DAYS 0 14 00:00: 00 No Scopolamin e 1 MG/3DAYS Scopolamine 1 MG/3DAYS Scopolamine 1 MG/3DAYS 0 -14 00:00: 00 No Scopolamin e 1 MG/3DAYS Scopolamine 1 MG/3DAYS Scopolamine 1 MG/3DAYS 0 -14 00:00: 00 No Scopolamin e 1 MG/3DAYS Scopolamine 1 MG/3DAYS Scopolamine 1 MG/3DAYS 0 -14 00:00: 00 No Scopolamin e 1 MG/3DAYS Scopolamine 1 MG/3DAYS Scopolamine 1 MG/3DAYS 0 6-14 00:00: 00 No Scopolamin e 1 MG/3DAYS Scopolamine 1 MG/3DAYS Scopolamine 1 MG/3DAYS 0 6-14 00:00: 00 No Scopolamin e 1 MG/3DAYS Scopolamine 1 MG/3DAYS Scopolamine 1 MG/3DAYS 2021-0 6-14 00:00: 00 No Scopolamin e 1 MG/3DAYS Scopolamine 1 MG/3DAYS Scopolamine 1 MG/3DAYS 0 6-14 00:00: 00 No Scopolamin e 1 MG/3DAYS Scopolamine 1 MG/3DAYS Scopolamine 1 MG/3DAYS 0 6-14 00:00: 00 No Scopolamin e 1 MG/3DAYS Scopolamine 1 MG/3DAYS Scopolamine 1 MG/3DAYS 0 6-14 00:00: 00 No Scopolamin e 1 MG/3DAYS Scopolamine 1 MG/3DAYS Scopolamine 1 MG/3DAYS 0 614 00:00: 00 No Scopolamin e 1 MG/3DAYS Scopolamine 1 MG/3DAYS Scopolamine 1 MG/3DAYS 0 6-14 00:00: 00 No Scopolamin e 1 MG/3DAYS Scopolamine 1 MG/3DAYS Scopolamine 1 MG/3DAYS 0 6-14 00:00: 00 No Scopolamin e 1 MG/3DAYS Scopolamine 1 MG/3DAYS Scopolamine 1 MG/3DAYS 0 6-14 00:00: 00 No Scopolamin e 1 MG/3DAYS Scopolamine 1 MG/3DAYS Scopolamine 1 MG/3DAYS 0 6-14 00:00: 00 No Scopolamin e 1 MG/3DAYS Scopolamine 1 MG/3DAYS Scopolamine 1 MG/3DAYS 0 6-14 00:00: 00 No Scopolamin e 1 MG/3DAYS Scopolamine 1 MG/3DAYS Scopolamine 1 MG/3DAYS 2021-0 6-14 00:00: 00 No Scopolamin e 1 MG/3DAYS Scopolamine 1 MG/3DAYS Scopolamine 1 MG/3DAYS 2-0 6-14 00:00: 00 No Scopolamin e 1 MG/3DAYS Scopolamine 1 MG/3DAYS Scopolamine 1 MG/3DAYS 2021-0 6-14 00:00: 00 No Scopolamin e 1 MG/3DAYS Scopolamine 1 MG/3DAYS Scopolamine 1 MG/3DAYS 2021-0 6-14 00:00: 00 No Scopolamin e 1 MG/3DAYS Scopolamine 1 MG/3DAYS Scopolamine 1 MG/3DAYS 2021-0 6-14 00:00: 00 No Scopolamin e 1 MG/3DAYS Scopolamine 1 MG/3DAYS Scopolamine 1 MG/3DAYS 2021-0 6-14 00:00: 00 No Scopolamin e 1 MG/3DAYS Scopolamine 1 MG/3DAYS Scopolamine 1 MG/3DAYS 2021-0 6-14 00:00: 00 No Scopolamin e 1 MG/3DAYS Scopolamine 1 MG/3DAYS Scopolamine 1 MG/3DAYS 0 -14 00:00: 00 No Scopolamin e 1 MG/3DAYS Scopolamine 1 MG/3DAYS Scopolamine 1 MG/3DAYS 0 -14 00:00: 00 No Scopolamin e 1 MG/3DAYS Scopolamine 1 MG/3DAYS Scopolamine 1 MG/3DAYS 0 -14 00:00: 00 No Scopolamin e 1 MG/3DAYS Scopolamine 1 MG/3DAYS Scopolamine 1 MG/3DAYS 0 -14 00:00: 00 No Scopolamin e 1 MG/3DAYS Scopolamine 1 MG/3DAYS Scopolamine 1 MG/3DAYS 0 6-14 00:00: 00 No Scopolamin e 1 MG/3DAYS Vitamin B12 (Cyanocobal nayak) Vitamin B12 (Cyanocobal nayak) 0 11-22 00:00: 00 No [facility] Vitamin B12 (Cyanocobal nayak) Vitamin B12 (Cyanocobal nayak) 2021-0 11-22 00:00: 00 No [facility] Vitamin B12 (Cyanocobal nayak) Vitamin B12 (Cyanocobal nayak) 0 11-22 00:00: 00 No [facility] Vitamin B12 (Cyanocobal nayak) Vitamin B12 (Cyanocobal nayak) 0 11-22 00:00: 00 No [facility] Vitamin B12 (Cyanocobal nayak) Vitamin B12 (Cyanocobal nayak) 0 6- 00:00: 00 No [facility] Vitamin B12 (Cyanocobal nayak) Vitamin B12 (Cyanocobal nayak) 0 6- 00:00: 00 No 1000[facility] Vitamin B12 (Cyanocobal nayak) Vitamin B12 (Cyanocobal nayak) 0 6- 00:00: 00 No 1000[facility] Vitamin B12 (Cyanocobal nayak) Vitamin B12 (Cyanocobal nayak) 0 6- 00:00: 00 No 1000[facility] Vitamin B12 (Cyanocobal nayak) Vitamin B12 (Cyanocobal nayak) 0 6- 00:00: 00 No 1000[facility] Vitamin B12 (Cyanocobal nayak) Vitamin B12 (Cyanocobal nayak) 0 6- 00:00: 00 No 1000[facility] Vitamin B12 (Cyanocobal nayak) Vitamin B12 (Cyanocobal nayak) 0 6- 00:00: 00 No 1000[facility] Vitamin B12 (Cyanocobal nayak) Vitamin B12 (Cyanocobal nayak) 0 6- 00:00: 00 No 1000[facility] Vitamin B12 (Cyanocobal nayak) Vitamin B12 (Cyanocobal nayak) 0 6- 00:00: 00 No 1000[facility] Vitamin B12 (Cyanocobal nayak) Vitamin B12 (Cyanocobal nayak) 0 6-02 00:00: 00 No 1000[facility] Vitamin B12 (Cyanocobal nayak) Vitamin B12 (Cyanocobal nayak) 0 6-02 00:00: 00 No 1000[facility] Vitamin B12 (Cyanocobal nayak) Vitamin B12 (Cyanocobal nayak) 2021-0 6-02 00:00: 00 No 1000[facility] Vitamin B12 (Cyanocobal nayak) Vitamin B12 (Cyanocobal nayak) 0 6-02 00:00: 00 No [facility] Vitamin B12 (Cyanocobal nayak) Vitamin B12 (Cyanocobal nayak) 0 6-02 00:00: 00 No [facility] Vitamin B12 (Cyanocobal nayak) Vitamin B12 (Cyanocobal nayak) 0 6- 00:00: 00 No [facility] Vitamin B12 (Cyanocobal nayak) Vitamin B12 (Cyanocobal nayak) 0 6- 00:00: 00 No [facility] Vitamin B12 (Cyanocobal nayak) Vitamin B12 (Cyanocobal nayak) 0 6- 00:00: 00 No 1000[facility] Vitamin B12 (Cyanocobal nayak) Vitamin B12 (Cyanocobal nayak) 0 6- 00:00: 00 No 1000[facility] Vitamin B12 (Cyanocobal nayak) Vitamin B12 (Cyanocobal nayak) 0 6- 00:00: 00 No [facility] Vitamin B12 (Cyanocobal nayak) Vitamin B12 (Cyanocobal nayak) 0 6- 00:00: 00 No 1000[facility] Vitamin B12 (Cyanocobal nayak) Vitamin B12 (Cyanocobal nayak) 0 6-02 00:00: 00 No [facility] Vitamin B12 (Cyanocobal nayak) Vitamin B12 (Cyanocobal nayak) 0 6-02 00:00: 00 No [facility] Vitamin B12 (Cyanocobal nayak) Vitamin B12 (Cyanocobal nayak) 0 6-02 00:00: 00 No [facility] Vitamin B12 (Cyanocobal nayak) Vitamin B12 (Cyanocobal nayak) 0 6-02 00:00: 00 No [facility] Vitamin B12 (Cyanocobal nayak) Vitamin B12 (Cyanocobal nayak) 0 6-02 00:00: 00 No [facility] Vitamin B12 (Cyanocobal nayak) Vitamin B12 (Cyanocobal nayak) 0 6- 00:00: 00 No [facility] Vitamin B12 (Cyanocobal nayak) Vitamin B12 (Cyanocobal nayak) 0 6- 00:00: 00 No 1000[facility] Vitamin B12 (Cyanocobal nayak) Vitamin B12 (Cyanocobal nayak) 0 6- 00:00: 00 No 1000[facility] Vitamin B12 (Cyanocobal nayak) Vitamin B12 (Cyanocobal nayak) 0 6- 00:00: 00 No 1000[facility] Vitamin B12 (Cyanocobal nayak) Vitamin B12 (Cyanocobal nayak) 0 6- 00:00: 00 No 1000[facility] Vitamin B12 (Cyanocobal nayak) Vitamin B12 (Cyanocobal nayak) 0 6- 00:00: 00 No 1000[facility] Vitamin B12 (Cyanocobal nayak) Vitamin B12 (Cyanocobal nayak) 0 6- 00:00: 00 No 1000[facility] Vitamin B12 (Cyanocobal nayak) Vitamin B12 (Cyanocobal nayak) 0 6- 00:00: 00 No 1000[facility] Vitamin B12 (Cyanocobal nayak) Vitamin B12 (Cyanocobal nayak) 0 6- 00:00: 00 No 1000[facility] Vitamin B12 (Cyanocobal nayak) Vitamin B12 (Cyanocobal nayak) 0 6-02 00:00: 00 No 1000[facility] Vitamin B12 (Cyanocobal nayak) Vitamin B12 (Cyanocobal nayak) 0 6-02 00:00: 00 No [facility] Vitamin B12 (Cyanocobal nayak) Vitamin B12 (Cyanocobal nayak) 2021-0 6-02 00:00: 00 No 1000[facility] Vitamin B12 (Cyanocobal nayak) Vitamin B12 (Cyanocobal nayak) 2021-0 6-02 00:00: 00 No [facility] Vitamin B12 (Cyanocobal nayak) Vitamin B12 (Cyanocobal nayak) 2021-0 6-02 00:00: 00 No [facility] Vitamin B12 (Cyanocobal nayak) Vitamin B12 (Cyanocobal nayak) 2021-0 6-02 00:00: 00 No [facility] Vitamin B12 (Cyanocobal nayak) Vitamin B12 (Cyanocobal nayak) 2021-0 6-02 00:00: 00 No [facility] Vitamin B12 (Cyanocobal nayak) Vitamin B12 (Cyanocobal nayak) 2021-0 6-02 00:00: 00 No 1000[facility] Vitamin B12 (Cyanocobal nayak) Vitamin B12 (Cyanocobal nayak) 2021-0 6-02 00:00: 00 No 1000[facility] Vitamin B12 (Cyanocobal nayak) Vitamin B12 (Cyanocobal nayak) 2021-0 5-10 00:00: 00 No [facility] Vitamin B12 (Cyanocobal nayak) Vitamin B12 (Cyanocobal nayak) 2021-0 5-10 00:00: 00 No 1000[facility] Vitamin B12 (Cyanocobal nayak) Vitamin B12 (Cyanocobal nayak) 2021-0 5-10 00:00: 00 No [facility] Vitamin B12 (Cyanocobal nayak) Vitamin B12 (Cyanocobal nayak) 2021-0 5-10 00:00: 00 No [facility] Vitamin B12 (Cyanocobal nayak) Vitamin B12 (Cyanocobal nayak) 2021-0 5-10 00:00: 00 No [facility] Vitamin B12 (Cyanocobal nayak) Vitamin B12 (Cyanocobal nayak) 2021-0 5-10 00:00: 00 No [facility] Vitamin B12 (Cyanocobal nayak) Vitamin B12 (Cyanocobal nayak) 2021-0 5-10 00:00: 00 No [facility] Vitamin B12 (Cyanocobal nayak) Vitamin B12 (Cyanocobal nayak) 2021-0 5-10 00:00: 00 No [facility] Vitamin B12 (Cyanocobal nayak) Vitamin B12 (Cyanocobal nayak) 2021-0 5-10 00:00: 00 No 1000[facility] Vitamin B12 (Cyanocobal nayak) Vitamin B12 (Cyanocobal nayak) 2021-0 5-10 00:00: 00 No 1000[facility] Vitamin B12 (Cyanocobal nayak) Vitamin B12 (Cyanocobal nayak) 2021-0 5-10 00:00: 00 No 1000[facility] Vitamin B12 (Cyanocobal nayak) Vitamin B12 (Cyanocobal nayak) 2021-0 5-10 00:00: 00 No 1000[facility] Vitamin B12 (Cyanocobal nayak) Vitamin B12 (Cyanocobal nayak) 2021-0 5-10 00:00: 00 No 1000[facility] Vitamin B12 (Cyanocobal nayak) Vitamin B12 (Cyanocobal nayak) 2021-0 5-10 00:00: 00 No 1000[facility] Vitamin B12 (Cyanocobal nayak) Vitamin B12 (Cyanocobal nayak) 2021-0 5-10 00:00: 00 No 1000[facility] Vitamin B12 (Cyanocobal nayak) Vitamin B12 (Cyanocobal nayak) 2021-0 5-10 00:00: 00 No 1000[facility] Vitamin B12 (Cyanocobal nayak) Vitamin B12 (Cyanocobal nayak) 2021-0 5-10 00:00: 00 No 1000[facility] Vitamin B12 (Cyanocobal nayak) Vitamin B12 (Cyanocobal nayak) 2021-0 5-10 00:00: 00 No 1000[facility] Vitamin B12 (Cyanocobal nyaak) Vitamin B12 (Cyanocobal nayak) 2021-0 5-10 00:00: 00 No 1000[facility] Vitamin B12 (Cyanocobal nayak) Vitamin B12 (Cyanocobal nayak) 2021-0 5-10 00:00: 00 No [facility] Vitamin B12 (Cyanocobal nayak) Vitamin B12 (Cyanocobal nayak) 2021-0 5-10 00:00: 00 No [facility] Vitamin B12 (Cyanocobal nayak) Vitamin B12 (Cyanocobal nayak) 2021-0 5-10 00:00: 00 No [facility] Vitamin B12 (Cyanocobal nayak) Vitamin B12 (Cyanocobal nayak) 2021-0 5-10 00:00: 00 No [facility] Vitamin B12 (Cyanocobal nayak) Vitamin B12 (Cyanocobal nayak) 2021-0 5-10 00:00: 00 No [facility] Vitamin B12 (Cyanocobal nayak) Vitamin B12 (Cyanocobal nayak) 2021-0 5-10 00:00: 00 No 1000[facility] Vitamin B12 (Cyanocobal nayak) Vitamin B12 (Cyanocobal nayak) 2021-0 5-10 00:00: 00 No [facility] Vitamin B12 (Cyanocobal nayak) Vitamin B12 (Cyanocobal nayak) 2021-0 5-10 00:00: 00 No [facility] Vitamin B12 (Cyanocobal nayak) Vitamin B12 (Cyanocobal nayak) 2021-0 5-10 00:00: 00 No [facility] Vitamin B12 (Cyanocobal nayak) Vitamin B12 (Cyanocobal nayak) 2021-0 5-10 00:00: 00 No [facility] Vitamin B12 (Cyanocobal nayak) Vitamin B12 (Cyanocobal nayak) 2021-0 5-10 00:00: 00 No [facility] Vitamin B12 (Cyanocobal nayak) Vitamin B12 (Cyanocobal nayak) 2021-0 5-10 00:00: 00 No [facility] Vitamin B12 (Cyanocobal nayak) Vitamin B12 (Cyanocobal nayak) 2021-0 5-10 00:00: 00 No [facility] [facility] Vitamin B12 (Cyanocobal nayak) Vitamin B12 (Cyanocobal nayak) 2021-0 5-10 00:00: 00 No [facility] Vitamin B12 (Cyanocobal nayak) Vitamin B12 (Cyanocobal nayak) 2021-0 5-10 00:00: 00 No 1000ug [facility] Vitamin B12 (Cyanocobal nayak) Vitamin B12 (Cyanocobal nayak) 2021-0 5-10 00:00: 00 No 1000ug [facility] Vitamin B12 (Cyanocobal nayak) Vitamin B12 (Cyanocobal nayak) 2021-0 5-10 00:00: 00 No 1000ug [facility] Vitamin B12 (Cyanocobal nayak) Vitamin B12 (Cyanocobal nayak) 2021-0 5-10 00:00: 00 No 1000ug [facility] Vitamin B12 (Cyanocobal nayak) Vitamin B12 (Cyanocobal nayak) 2021-0 5-10 00:00: 00 No 1000ug [facility] Vitamin B12 (Cyanocobal nayak) Vitamin B12 (Cyanocobal nayak) 2021-0 5-10 00:00: 00 No 1000ug [facility] Vitamin B12 (Cyanocobal nayak) Vitamin B12 (Cyanocobal nayak) 2021-0 5-10 00:00: 00 No 1000ug [facility] Vitamin B12 (Cyanocobal nayak) Vitamin B12 (Cyanocobal nayak) 2021-0 5-10 00:00: 00 No 1000ug [facility] Vitamin B12 (Cyanocobal nayak) Vitamin B12 (Cyanocobal nayak) 2021-0 5-10 00:00: 00 No 1000ug [facility] Vitamin B12 (Cyanocobal nayak) Vitamin B12 (Cyanocobal nayak) 2021-0 5-10 00:00: 00 No 1000ug [facility] Vitamin B12 (Cyanocobal nayak) Vitamin B12 (Cyanocobal nayak) 2021-0 5-10 00:00: 00 No 1000ug [facility] Vitamin B12 (Cyanocobal nayak) Vitamin B12 (Cyanocobal nayak) 2-0 5-10 00:00: 00 No 1000ug [facility] Vitamin B12 (Cyanocobal nayak) Vitamin B12 (Cyanocobal nayak) 2-0 5-10 00:00: 00 No 1000ug [facility] Vitamin B12 (Cyanocobal nayak) Vitamin B12 (Cyanocobal nayak) 2-0 5-10 00:00: 00 No 1000ug [facility] Vitamin B12 (Cyanocobal nayak) Vitamin B12 (Cyanocobal nayak) 2-0 5-10 00:00: 00 No 1000ug [facility] Vitamin B12 (Cyanocobal nayak) Vitamin B12 (Cyanocobal nayak) 2-0 5-10 00:00: 00 No 1000ug [facility] Alfuzosin HCl ER 10 MG Alfuzosin HCl ER 10 MG 2-0 427 00:00: 00 04-15 00:00 :00 No 1{table t_immed iately_ after_t he_same _meal} QD Alfuzosin HCl ER 10 MG Alfuzosin HCl ER 10 MG Alfuzosin HCl ER 10 MG 2-0 10-17 00:00: 00 04-15 00:00 :00 No 1{table t_immed iately_ after_t he_same _meal} QD Alfuzosin HCl ER 10 MG Alfuzosin HCl ER 10 MG Alfuzosin HCl ER 10 MG 2-0 10-17 00:00: 00 04-15 00:00 :00 No 1{table t_immed iately_ after_t he_same _meal} QD Alfuzosin HCl ER 10 MG Alfuzosin HCl ER 10 MG Alfuzosin HCl ER 10 MG 2-0 427 00:00: 00 04-15 00:00 :00 No 1{table t_immed iately_ after_t he_same _meal} QD Alfuzosin HCl ER 10 MG Alfuzosin HCl ER 10 MG Alfuzosin HCl ER 10 MG 2-0 4-27 00:00: 00 04-15 00:00 :00 No 1{table t_immed iately_ after_t he_same _meal} QD Alfuzosin HCl ER 10 MG Alfuzosin HCl ER 10 MG Alfuzosin HCl ER 10 MG 2022-0 10-17 00:00: 00 04-15 00:00 :00 No 1{table t_immed iately_ after_t he_same _meal} QD Alfuzosin HCl ER 10 MG Alfuzosin HCl ER 10 MG Alfuzosin HCl ER 10 MG 2022-0 10-17 00:00: 00 04-15 00:00 :00 No 1{table t_immed iately_ after_t he_same _meal} QD Alfuzosin HCl ER 10 MG Alfuzosin HCl ER 10 MG Alfuzosin HCl ER 10 MG 2-0 10-17 00:00: 00 04-15 00:00 :00 No 1{table t_immed iately_ after_t he_same _meal} QD Alfuzosin HCl ER 10 MG Alfuzosin HCl ER 10 MG Alfuzosin HCl ER 10 MG 2-0 10-17 00:00: 00 04-15 00:00 :00 No 1{table t_immed iately_ after_t he_same _meal} QD Alfuzosin HCl ER 10 MG Alfuzosin HCl ER 10 MG Alfuzosin HCl ER 10 MG 2-0 10-17 00:00: 00 04-15 00:00 :00 No 1{table t_immed iately_ after_t he_same _meal} QD Alfuzosin HCl ER 10 MG Alfuzosin HCl ER 10 MG Alfuzosin HCl ER 10 MG 2-0 10-17 00:00: 00 04-15 00:00 :00 No 1{table t_immed iately_ after_t he_same _meal} QD Alfuzosin HCl ER 10 MG Alfuzosin HCl ER 10 MG Alfuzosin HCl ER 10 MG 2-0 10-17 00:00: 00 04-15 00:00 :00 No 1{table t_immed iately_ after_t he_same _meal} QD Alfuzosin HCl ER 10 MG Alfuzosin HCl ER 10 MG Alfuzosin HCl ER 10 MG 2-0 10-17 00:00: 04-15 00:00 :00 No 1{table t_immed iately_ after_t he_same _meal} QD Alfuzosin HCl ER 10 MG Alfuzosin HCl ER 10 MG Alfuzosin HCl ER 10 MG 2-0 10-17 00:00: 00 04-15 00:00 :00 No 1{table t_immed iately_ after_t he_same _meal} QD Alfuzosin HCl ER 10 MG Alfuzosin HCl ER 10 MG Alfuzosin HCl ER 10 MG 2021-0 10-17 00:00: 00 04-15 00:00 :00 No 1{table t_immed iately_ after_t he_same _meal} QD Alfuzosin HCl ER 10 MG Alfuzosin HCl ER 10 MG Alfuzosin HCl ER 10 MG 2021-0 10-17 00:00: 00 04-15 00:00 :00 No 1{table t_immed iately_ after_t he_same _meal} QD Alfuzosin HCl ER 10 MG Alfuzosin HCl ER 10 MG Alfuzosin HCl ER 10 MG 2021-0 10-17 00:00: 00 04-15 00:00 :00 No 1{table t_immed iately_ after_t he_same _meal} QD Alfuzosin HCl ER 10 MG Vitamin B12 (Cyanocobal nayak) Vitamin B12 (Cyanocobal nayak) 3-10 00:00: 00 No 1000ug [facility] Vitamin B12 (Cyanocobal nayak) Vitamin B12 (Cyanocobal nayak) 0 3-10 00:00: 00 No 1000ug [facility] Vitamin B12 (Cyanocobal nayak) Vitamin B12 (Cyanocobal nayak) 0 3-10 00:00: 00 No 1000ug [facility] Vitamin B12 (Cyanocobal naayk) Vitamin B12 (Cyanocobal nayak) 0 3-10 00:00: 00 No 1000ug [facility] Vitamin B12 (Cyanocobal nayak) Vitamin B12 (Cyanocobal nayak) 2021-0 3-10 00:00: 00 No 1000ug [facility] Vitamin B12 (Cyanocobal nayak) Vitamin B12 (Cyanocobal nayak) 2021-0 3-10 00:00: 00 No [facility] Vitamin B12 (Cyanocobal nayak) Vitamin B12 (Cyanocobal nayak) 2021-0 3-10 00:00: 00 No [facility] Vitamin B12 (Cyanocobal nayak) Vitamin B12 (Cyanocobal nayak) 2021-0 3-10 00:00: 00 No 1000ug [facility] Vitamin B12 (Cyanocobal nayak) Vitamin B12 (Cyanocobal nayak) 2021-0 3-10 00:00: 00 No 1000ug [facility] Vitamin B12 (Cyanocobal nayak) Vitamin B12 (Cyanocobal nayka) 2021-0 3-10 00:00: 00 No 1000ug [facility] Vitamin B12 (Cyanocobal nayak) Vitamin B12 (Cyanocobal nayak) 2021-0 3-10 00:00: 00 No 1000ug [facility] Vitamin B12 (Cyanocobal nayak) Vitamin B12 (Cyanocobal nayak) 2021-0 3-10 00:00: 00 No 1000ug [facility] Vitamin B12 (Cyanocobal nayak) Vitamin B12 (Cyanocobal nayak) 2021-0 3-10 00:00: 00 No 1000ug [facility] Vitamin B12 (Cyanocobal nayak) Vitamin B12 (Cyanocobal nayak) 2021-0 3-10 00:00: 00 No 1000ug [facility] Vitamin B12 (Cyanocobal nayak) Vitamin B12 (Cyanocobal nayak) 2021-0 3-10 00:00: 00 No 1000ug [facility] Vitamin B12 (Cyanocobal nayak) Vitamin B12 (Cyanocobal nayak) 2021-0 3-10 00:00: 00 No 1000ug [facility] Vitamin B12 (Cyanocobal nayak) Vitamin B12 (Cyanocobal nayak) 2021-0 3-10 00:00: 00 No 1000ug [facility] Vitamin B12 (Cyanocobal nayak) Vitamin B12 (Cyanocobal nayak) 2021-0 3-10 00:00: 00 No [facility] Vitamin B12 (Cyanocobal nayak) Vitamin B12 (Cyanocobal nayak) 2021-0 3-10 00:00: 00 No 1000[facility] Vitamin B12 (Cyanocobal nayak) Vitamin B12 (Cyanocobal nayak) 2021-0 3-10 00:00: 00 No 1000ug [facility] Vitamin B12 (Cyanocobal nayak) Vitamin B12 (Cyanocobal nayak) 2021-0 3-10 00:00: 00 No 1000ug [facility] Vitamin B12 (Cyanocobal nayak) Vitamin B12 (Cyanocobal nayak) 2021-0 3-10 00:00: 00 No 1000ug [facility] Vitamin B12 (Cyanocobal nayak) Vitamin B12 (Cyanocobal nayak) 2021-0 3-10 00:00: 00 No 1000ug [facility] Vitamin B12 (Cyanocobal nayak) Vitamin B12 (Cyanocobal nayak) 2021-0 3-10 00:00: 00 No 1000ug [facility] Vitamin B12 (Cyanocobal nayak) Vitamin B12 (Cyanocobal nayak) 2021-0 3-10 00:00: 00 No 1000ug [facility] Vitamin B12 (Cyanocobal nayak) Vitamin B12 (Cyanocobal nayak) 2021-0 3-10 00:00: 00 No 1000ug [facility] Vitamin B12 (Cyanocobal nayak) Vitamin B12 (Cyanocobal nayak) 2021-0 3-10 00:00: 00 No 1000ug [facility] Vitamin B12 (Cyanocobal nayak) Vitamin B12 (Cyanocobal nayak) 2021-0 3-10 00:00: 00 No 1000ug [facility] Vitamin B12 (Cyanocobal nayak) Vitamin B12 (Cyanocobal nayak) 2021-0 3-10 00:00: 00 No 1000ug [facility] Vitamin B12 (Cyanocobal nayak) Vitamin B12 (Cyanocobal nayak) 2-0 3-10 00:00: 00 No 1000[facility] Vitamin B12 (Cyanocobal nayak) Vitamin B12 (Cyanocobal nayak) 2021-0 3-10 00:00: 00 No [facility] Vitamin B12 (Cyanocobal nayak) Vitamin B12 (Cyanocobal nayak) 2021-0 3-10 00:00: 00 No [facility] Vitamin B12 (Cyanocobal nayak) Vitamin B12 (Cyanocobal nayak) 2021-0 3-10 00:00: 00 No 1000ug [facility] Vitamin B12 (Cyanocobal nayak) Vitamin B12 (Cyanocobal nayak) 2021-0 3-10 00:00: 00 No 1000ug [facility] Vitamin B12 (Cyanocobal nayak) Vitamin B12 (Cyanocobal nayak) 2021-0 3-10 00:00: 00 No 1000ug [facility] Vitamin B12 (Cyanocobal nayak) Vitamin B12 (Cyanocobal nayak) 2021-0 3-10 00:00: 00 No 1000ug [facility] Vitamin B12 (Cyanocobal nayak) Vitamin B12 (Cyanocobal nayak) 2021-0 3-10 00:00: 00 No 1000ug [facility] Vitamin B12 (Cyanocobal nayak) Vitamin B12 (Cyanocobal nayak) 2021-0 3-10 00:00: 00 No 1000ug [facility] Vitamin B12 (Cyanocobal nayak) Vitamin B12 (Cyanocobal nayak) 2021-0 3-10 00:00: 00 No 1000ug [facility] Vitamin B12 (Cyanocobal nayak) Vitamin B12 (Cyanocobal nayak) 2021-0 3-10 00:00: 00 No 1000ug [facility] Vitamin B12 (Cyanocobal nayak) Vitamin B12 (Cyanocobal nayak) 2021-0 3-10 00:00: 00 No 1000ug [facility] Vitamin B12 (Cyanocobal nayak) Vitamin B12 (Cyanocobal nayak) 2021-0 3-10 00:00: 00 No 1000ug [facility] Vitamin B12 (Cyanocobal nayak) Vitamin B12 (Cyanocobal nayak) 2021-0 3-10 00:00: 00 No 1000ug [facility] Vitamin B12 (Cyanocobal nayak) Vitamin B12 (Cyanocobal nayak) 2021-0 3-10 00:00: 00 No 1000ug [facility] Vitamin B12 (Cyanocobal nayak) Vitamin B12 (Cyanocobal nayak) 2021-0 3-10 00:00: 00 No 1000ug [facility] Vitamin B12 (Cyanocobal nayak) Vitamin B12 (Cyanocobal nayak) 2021-0 3-10 00:00: 00 No 1000ug [facility] Vitamin B12 (Cyanocobal nayak) Vitamin B12 (Cyanocobal nayak) 2021-0 3-10 00:00: 00 No 1000ug [facility] Vitamin B12 (Cyanocobal nayak) Vitamin B12 (Cyanocobal nayak) 2021-0 3-10 00:00: 00 No 1000ug [facility] Vitamin B12 (Cyanocobal nayak) Vitamin B12 (Cyanocobal nayak) 2021-0 3-10 00:00: 00 No 1000ug [facility] Vitamin B12 (Cyanocobal nayak) Vitamin B12 (Cyanocobal nayak) 2021-0 3-10 00:00: 00 No 1000ug [facility] Vitamin B12 (Cyanocobal nayak) Vitamin B12 (Cyanocobal nayak) 2021-0 3-10 00:00: 00 No 1000ug [facility] Vitamin B12 (Cyanocobal nayak) Vitamin B12 (Cyanocobal nayak) 2021-0 3-10 00:00: 00 No 1000ug [facility] Vitamin B12 (Cyanocobal nayak) Vitamin B12 (Cyanocobal nayak) 2021-0 3-10 00:00: 00 No 1000ug [facility] Vitamin B12 (Cyanocobal nayak) Vitamin B12 (Cyanocobal nayak) 2021-0 3-10 00:00: 00 No 1000ug [facility] Azithromyci n 250 MG Azithromyci n 250 MG 2021-0 3-07 00:00: 00 09-01 00:00 :00 No QD Azithromyc in 250 MG Azithromyci n 250 MG Azithromyci n 250 MG 2021-0 3-07 00:00: 00 09-01 00:00 :00 No QD Azithromyc in 250 MG traZODone HCl 100 MG traZODone HCl 100 MG 2021-0 2-28 00:00: 00 No QD traZODone HCl 100 MG traZODone HCl 100 MG traZODone HCl 100 MG 2021-0 2-28 00:00: 00 No QD traZODone HCl 100 MG traZODone HCl 100 MG traZODone HCl 100 MG 2021-0 2-28 00:00: 00 No QD traZODone HCl 100 MG traZODone HCl 100 MG traZODone HCl 100 MG 2021-0 2- 00:00: 00 No QD traZODone HCl 100 MG Bactrim DS 800-160 MG Bactrim DS 800-160 MG 2021-0 2-17 00:00: 00 08-16 00:00 :00 No 1{table t} BID Bactrim DS 800-160 MG Vitamin B12 (Cyanocobal nayak) Vitamin B12 (Cyanocobal nayak) 0 2-02 00:00: 00 No 1000ug [facility] Vitamin B12 (Cyanocobal nayak) Vitamin B12 (Cyanocobal nayak) 0 2- 00:00: 00 No 1000ug [facility] Vitamin B12 (Cyanocobal nayak) Vitamin B12 (Cyanocobal nayak) 0 2- 00:00: 00 No 1000ug [facility] Vitamin B12 (Cyanocobal nayak) Vitamin B12 (Cyanocobal nayak) 0 2-02 00:00: 00 No 1000ug [facility] Vitamin B12 (Cyanocobal nayak) Vitamin B12 (Cyanocobal nayak) 0 2-02 00:00: 00 No 1000ug [facility] Vitamin B12 (Cyanocobal nayak) Vitamin B12 (Cyanocobal nayak) 0 2-02 00:00: 00 No 1000ug [facility] Vitamin B12 (Cyanocobal nayak) Vitamin B12 (Cyanocobal nayak) 2022-0 2-02 00:00: 00 No [facility] Vitamin B12 (Cyanocobal nayak) Vitamin B12 (Cyanocobal nayak) 0 2-02 00:00: 00 No 1000ug [facility] Vitamin B12 (Cyanocobal nayak) Vitamin B12 (Cyanocobal nayak) 0 2-02 00:00: 00 No 1000ug [facility] Vitamin B12 (Cyanocobal nayak) Vitamin B12 (Cyanocobal nayak) 0 2-02 00:00: 00 No 1000ug [facility] Vitamin B12 (Cyanocobal nayak) Vitamin B12 (Cyanocobal nayak) 0 2- 00:00: 00 No 1000ug [facility] Vitamin B12 (Cyanocobal nayak) Vitamin B12 (Cyanocobal nayak) 0 2- 00:00: 00 No 1000ug [facility] Vitamin B12 (Cyanocobal nayak) Vitamin B12 (Cyanocobal nayak) 0 2-02 00:00: 00 No 1000ug [facility] Vitamin B12 (Cyanocobal nayak) Vitamin B12 (Cyanocobal nayak) 0 2-02 00:00: 00 No 1000ug [facility] Vitamin B12 (Cyanocobal nayak) Vitamin B12 (Cyanocobal nayak) 2021-0 2-02 00:00: 00 No 1000ug [facility] Vitamin B12 (Cyanocobal nayak) Vitamin B12 (Cyanocobal nayak) 2021-0 2-02 00:00: 00 No 1000ug [facility] Vitamin B12 (Cyanocobal nayak) Vitamin B12 (Cyanocobal nayak) 2021-0 2-02 00:00: 00 No 1000ug [facility] Vitamin B12 (Cyanocobal nayak) Vitamin B12 (Cyanocobal nayak) 2021-0 2-02 00:00: 00 No 1000ug [facility] Vitamin B12 (Cyanocobal nayak) Vitamin B12 (Cyanocobal nayak) 2021-0 2-02 00:00: 00 No 1000ug [facility] Vitamin B12 (Cyanocobal nayak) Vitamin B12 (Cyanocobal nayak) 2021-0 2-02 00:00: 00 No 1000ug [facility] Vitamin B12 (Cyanocobal nayak) Vitamin B12 (Cyanocobal nayak) 2021-0 2-02 00:00: 00 No 1000ug [facility] Vitamin B12 (Cyanocobal nayak) Vitamin B12 (Cyanocobal nayak) 2021-0 2-02 00:00: 00 No 1000ug [facility] Vitamin B12 (Cyanocobal nayak) Vitamin B12 (Cyanocobal nayak) 2021-0 2-02 00:00: 00 No 1000ug [facility] Vitamin B12 (Cyanocobal nayak) Vitamin B12 (Cyanocobal nayak) 0 2-02 00:00: 00 No 1000[facility] Vitamin B12 (Cyanocobal nayak) Vitamin B12 (Cyanocobal nayak) 2021-0 2-02 00:00: 00 No 1000ug [facility] Vitamin B12 (Cyanocobal nayak) Vitamin B12 (Cyanocobal nayak) 2021-0 2-02 00:00: 00 No 1000[facility] Vitamin B12 (Cyanocobal nayak) Vitamin B12 (Cyanocobal nayak) 0 2-02 00:00: 00 No 1000ug [facility] Vitamin B12 (Cyanocobal nayak) Vitamin B12 (Cyanocobal nayak) 2021-0 2-02 00:00: 00 No 1000ug [facility] Vitamin B12 (Cyanocobal nayak) Vitamin B12 (Cyanocobal nayak) 2021-0 2-02 00:00: 00 No 1000ug [facility] Vitamin B12 (Cyanocobal nayak) Vitamin B12 (Cyanocobal nayak) 2021-0 2-02 00:00: 00 No 1000ug [facility] Vitamin B12 (Cyanocobal nayak) Vitamin B12 (Cyanocobal nayak) 2021-0 2-02 00:00: 00 No 1000ug [facility] Vitamin B12 (Cyanocobal nayak) Vitamin B12 (Cyanocobal nayak) 2021-0 2-02 00:00: 00 No [facility] Vitamin B12 (Cyanocobal nayak) Vitamin B12 (Cyanocobal nayak) 0 2-02 00:00: 00 No 1000ug [facility] Vitamin B12 (Cyanocobal nayak) Vitamin B12 (Cyanocobal nayak) 0 2-02 00:00: 00 No 1000[facility] Vitamin B12 (Cyanocobal nayak) Vitamin B12 (Cyanocobal nayak) 0 2-02 00:00: 00 No 1000[facility] Vitamin B12 (Cyanocobal nayak) Vitamin B12 (Cyanocobal nayak) 0 2- 00:00: 00 No 1000[facility] Vitamin B12 (Cyanocobal nayak) Vitamin B12 (Cyanocobal nayak) 0 2- 00:00: 00 No 1000[facility] Vitamin B12 (Cyanocobal nayak) Vitamin B12 (Cyanocobal nayak) 0 2-02 00:00: 00 No 1000[facility] Vitamin B12 (Cyanocobal nayak) Vitamin B12 (Cyanocobal nayak) 0 2-02 00:00: 00 No 1000[facility] Vitamin B12 (Cyanocobal nayak) Vitamin B12 (Cyanocobal nayak) 2021-0 2-02 00:00: 00 No 1000[facility] Vitamin B12 (Cyanocobal nayak) Vitamin B12 (Cyanocobal nayak) 2021-0 2-02 00:00: 00 No 1000[facility] Vitamin B12 (Cyanocobal nayak) Vitamin B12 (Cyanocobal nayak) 2021-0 2-02 00:00: 00 No 1000[facility] Vitamin B12 (Cyanocobal nayak) Vitamin B12 (Cyanocobal nayak) 2021-0 2-02 00:00: 00 No 1000[facility] Vitamin B12 (Cyanocobal nayak) Vitamin B12 (Cyanocobal nayak) 2021-0 2-02 00:00: 00 No 1000[facility] Vitamin B12 (Cyanocobal nayak) Vitamin B12 (Cyanocobal nayak) 0 2-02 00:00: 00 No 1000[facility] Vitamin B12 (Cyanocobal nayak) Vitamin B12 (Cyanocobal nayak) 0 2-02 00:00: 00 No 1000[facility] Vitamin B12 (Cyanocobal nayak) Vitamin B12 (Cyanocobal nayak) 0 2-02 00:00: 00 No 1000[facility] Vitamin B12 (Cyanocobal nayak) Vitamin B12 (Cyanocobal nayak) 0 2-02 00:00: 00 No 1000[facility] Vitamin B12 (Cyanocobal nayak) Vitamin B12 (Cyanocobal nayak) 0 2-02 00:00: 00 No 1000[facility] Vitamin B12 (Cyanocobal nayak) Vitamin B12 (Cyanocobal nayak) 0 2-02 00:00: 00 No 1000[facility] Vitamin B12 (Cyanocobal nayak) Vitamin B12 (Cyanocobal nayak) 2021-0 2-02 00:00: 00 No 1000[facility] Vitamin B12 (Cyanocobal nayak) Vitamin B12 (Cyanocobal nayak) 0 2-02 00:00: 00 No 1000[facility] Vitamin B12 (Cyanocobal nayak) Vitamin B12 (Cyanocobal nayak) 2021-0 2-02 00:00: 00 No 1000[facility] Vitamin B12 (Cyanocobal nayak) Vitamin B12 (Cyanocobal nayak) 2021-0 2-02 00:00: 00 No 1000[facility] Vitamin B12 (Cyanocobal nayak) Vitamin B12 (Cyanocobal nayak) 0 2-02 00:00: 00 No 1000[facility] Vitamin B12 (Cyanocobal nayak) Vitamin B12 (Cyanocobal nayak) 2021-0 2-02 00:00: 00 No 1000[facility] Clotrimazol e 1 % Clotrimazol e 1 % -20 00:00: 00 08-09 00:00 :00 No 1{appli cation} BID Clotrimazo le 1 % Clotrimazol e 1 % Clotrimazol e 1 % -20 00:00: 00 08-09 00:00 :00 No 1{appli cation} BID Clotrimazo le 1 % Vitamin B12 (Cyanocobal nayak) Vitamin B12 (Cyanocobal nayak) -05 00:00: 00 No 1000[facility] Vitamin B12 (Cyanocobal nayak) Vitamin B12 (Cyanocobal nayak) 0 -05 00:00: 00 No 1000[facility] Vitamin B12 (Cyanocobal nayak) Vitamin B12 (Cyanocobal nayak) 0 -05 00:00: 00 No 1000[facility] Vitamin B12 (Cyanocobal nayak) Vitamin B12 (Cyanocobal nayak) 0 -05 00:00: 00 No 1000[facility] Vitamin B12 (Cyanocobal nayak) Vitamin B12 (Cyanocobal nayak) 0 -05 00:00: 00 No 1000[facility] Vitamin B12 (Cyanocobal nayak) Vitamin B12 (Cyanocobal nayak) 0 -05 00:00: 00 No 1000[facility] Vitamin B12 (Cyanocobal nayak) Vitamin B12 (Cyanocobal nayak) 0 -05 00:00: 00 No 1000[facility] Vitamin B12 (Cyanocobal nayak) Vitamin B12 (Cyanocobal nayak) 0 1-05 00:00: 00 No 1000[facility] Vitamin B12 (Cyanocobal nayak) Vitamin B12 (Cyanocobal nayak) 0 1-05 00:00: 00 No 1000[facility] Vitamin B12 (Cyanocobal nayak) Vitamin B12 (Cyanocobal nayak) 0 1-05 00:00: 00 No 1000[facility] Vitamin B12 (Cyanocobal nayak) Vitamin B12 (Cyanocobal nayak) 2021-0 -05 00:00: 00 No [facility] Vitamin B12 (Cyanocobal nayak) Vitamin B12 (Cyanocobal nayak) 2021-0 -05 00:00: 00 No [facility] Vitamin B12 (Cyanocobal nayak) Vitamin B12 (Cyanocobal nayak) 2021-0 -05 00:00: 00 No 1000[facility] Vitamin B12 (Cyanocobal nayak) Vitamin B12 (Cyanocobal nayak) 2021-0 -05 00:00: 00 No [facility] Vitamin B12 (Cyanocobal nayak) Vitamin B12 (Cyanocobal nayak) 0 -05 00:00: 00 No 1000[facility] Vitamin B12 (Cyanocobal nayak) Vitamin B12 (Cyanocobal nayak) 2021-0 -05 00:00: 00 No 1000[facility] Vitamin B12 (Cyanocobal nayak) Vitamin B12 (Cyanocobal nayak) 0 -05 00:00: 00 No 1000[facility] Vitamin B12 (Cyanocobal nayak) Vitamin B12 (Cyanocobal nayak) 0 -05 00:00: 00 No 1000[facility] Vitamin B12 (Cyanocobal nayak) Vitamin B12 (Cyanocobal nayak) 2021-0 -05 00:00: 00 No 1000[facility] Vitamin B12 (Cyanocobal nayak) Vitamin B12 (Cyanocobal nayak) 2021-0 -05 00:00: 00 No [facility] Vitamin B12 (Cyanocobal nayak) Vitamin B12 (Cyanocobal nayak) 2021-0 -05 00:00: 00 No 1000[facility] Vitamin B12 (Cyanocobal nayak) Vitamin B12 (Cyanocobal nayak) 2021-0 -05 00:00: 00 No 1000[facility] Vitamin B12 (Cyanocobal nayak) Vitamin B12 (Cyanocobal nayak) 2021-0 -05 00:00: 00 No 1000[facility] Vitamin B12 (Cyanocobal nayak) Vitamin B12 (Cyanocobal nayak) 2021-0 -05 00:00: 00 No 1000[facility] Vitamin B12 (Cyanocobal nayak) Vitamin B12 (Cyanocobal nayak) 2021-0 1-05 00:00: 00 No 1000[facility] Vitamin B12 (Cyanocobal nayak) Vitamin B12 (Cyanocobal nayak) 2021-0 -05 00:00: 00 No 1000[facility] Vitamin B12 (Cyanocobal nayak) Vitamin B12 (Cyanocobal nayak) 2021-0 -05 00:00: 00 No 1000[facility] Vitamin B12 (Cyanocobal nayak) Vitamin B12 (Cyanocobal nayak) 2021-0 -05 00:00: 00 No 1000[facility] Vitamin B12 (Cyanocobal nayak) Vitamin B12 (Cyanocobal nayak) 2021-0 -05 00:00: 00 No [facility] [facility] Vitamin B12 (Cyanocobal nayak) Vitamin B12 (Cyanocobal nayak) 2021-0 -05 00:00: 00 No 1000ug [facility] Vitamin B12 (Cyanocobal nayak) Vitamin B12 (Cyanocobal nayak) 2021-0 -05 00:00: 00 No 1000[facility] Vitamin B12 (Cyanocobal nayak) Vitamin B12 (Cyanocobal nayak) 2021-0 1-05 00:00: 00 No 1000[facility] Vitamin B12 (Cyanocobal nayak) Vitamin B12 (Cyanocobal nayak) 2021-0 1-05 00:00: 00 No 1000[facility] Vitamin B12 (Cyanocobal nayak) Vitamin B12 (Cyanocobal nayak) 2021-0 1-05 00:00: 00 No 1000[facility] Vitamin B12 (Cyanocobal nayak) Vitamin B12 (Cyanocobal nayak) 2021-0 1-05 00:00: 00 No 1000[facility] Vitamin B12 (Cyanocobal nayak) Vitamin B12 (Cyanocobal nayak) 2021-0 -05 00:00: 00 No [facility] Vitamin B12 (Cyanocobal nayak) Vitamin B12 (Cyanocobal nayak) 2021-0 -05 00:00: 00 No [facility] Vitamin B12 (Cyanocobal nayak) Vitamin B12 (Cyanocobal nayak) 2021-0 -05 00:00: 00 No 1000[facility] Vitamin B12 (Cyanocobal nayak) Vitamin B12 (Cyanocobal nayak) 2021-0 -05 00:00: 00 No [facility] Vitamin B12 (Cyanocobal nayak) Vitamin B12 (Cyanocobal nayak) 0 -05 00:00: 00 No 1000[facility] Vitamin B12 (Cyanocobal nayak) Vitamin B12 (Cyanocobal nayak) 2021-0 -05 00:00: 00 No 1000[facility] Vitamin B12 (Cyanocobal nayak) Vitamin B12 (Cyanocobal nayak) 0 -05 00:00: 00 No 1000[facility] Vitamin B12 (Cyanocobal nayak) Vitamin B12 (Cyanocobal nayak) 0 -05 00:00: 00 No 1000[facility] Vitamin B12 (Cyanocobal nayak) Vitamin B12 (Cyanocobal nayak) 2021-0 -05 00:00: 00 No 1000[facility] Vitamin B12 (Cyanocobal nayak) Vitamin B12 (Cyanocobal nayak) 2021-0 -05 00:00: 00 No [facility] Vitamin B12 (Cyanocobal nayak) Vitamin B12 (Cyanocobal nayak) 2021-0 -05 00:00: 00 No 1000[facility] Vitamin B12 (Cyanocobal nayak) Vitamin B12 (Cyanocobal nayak) 2021-0 -05 00:00: 00 No 1000[facility] Vitamin B12 (Cyanocobal nayak) Vitamin B12 (Cyanocobal nayak) 2021-0 -05 00:00: 00 No 1000[facility] Vitamin B12 (Cyanocobal nayak) Vitamin B12 (Cyanocobal nayak) 2021-0 1-05 00:00: 00 No 1000[facility] Vitamin B12 (Cyanocobal nayak) Vitamin B12 (Cyanocobal nayak) 2021-0 1-05 00:00: 00 No 1000[facility] Vitamin B12 (Cyanocobal nayak) Vitamin B12 (Cyanocobal nayak) 2021-0 1-05 00:00: 00 No 1000[facility] Vitamin B12 (Cyanocobal nayak) Vitamin B12 (Cyanocobal nayak) 2021-0 1-05 00:00: 00 No 1000[facility] Vitamin B12 (Cyanocobal nayak) Vitamin B12 (Cyanocobal nayak) 2021-0 1-05 00:00: 00 No 1000[facility] Vitamin B12 (Cyanocobal nayak) Vitamin B12 (Cyanocobal nayak) 2021-0 1-05 00:00: 00 No 1000[facility] Vitamin B12 (Cyanocobal nayak) Vitamin B12 (Cyanocobal nayak) 2021-0 1-05 00:00: 00 No 1000[facility] Vitamin B12 (Cyanocobal nayak) Vitamin B12 (Cyanocobal nayak) 2021-0 1-05 00:00: 00 No 1000[facility] Vitamin B12 (Cyanocobal nayak) Vitamin B12 (Cyanocobal nayak) 2020-06 2- 00:00: 00 No 1000[facility] Vitamin B12 (Cyanocobal nayak) Vitamin B12 (Cyanocobal nayak) 2020-06 2- 00:00: 00 No 1000[facility] Vitamin B12 (Cyanocobal nayak) Vitamin B12 (Cyanocobal nayak) 2020-06 2- 00:00: 00 No 1000[facility] Vitamin B12 (Cyanocobal nayak) Vitamin B12 (Cyanocobal nayak) 2020-06 2- 00:00: 00 No 1000[facility] Vitamin B12 (Cyanocobal nayak) Vitamin B12 (Cyanocobal nayak) 2020-06 00:00: 00 No [facility] Vitamin B12 (Cyanocobal nayak) Vitamin B12 (Cyanocobal nayak) 2020-06 00:00: 00 No [facility] Vitamin B12 (Cyanocobal nayak) Vitamin B12 (Cyanocobal nayak) 2020-06 00:00: 00 No [facility] Vitamin B12 (Cyanocobal nayak) Vitamin B12 (Cyanocobal nayak) 2020-06 00:00: 00 No [facility] Vitamin B12 (Cyanocobal nayak) Vitamin B12 (Cyanocobal nayak) 2020-06 00:00: 00 No 1000[facility] Vitamin B12 (Cyanocobal nayak) Vitamin B12 (Cyanocobal nayak) 2020-06 00:00: 00 No 1000[facility] Vitamin B12 (Cyanocobal nayak) Vitamin B12 (Cyanocobal nayak) 2020-06 00:00: 00 No 1000[facility] Vitamin B12 (Cyanocobal nayak) Vitamin B12 (Cyanocobal nayak) 2020-06 00:00: 00 No 1000[facility] Vitamin B12 (Cyanocobal nayak) Vitamin B12 (Cyanocobal nayak) 2020-06 00:00: 00 No 1000[facility] Vitamin B12 (Cyanocobal nayak) Vitamin B12 (Cyanocobal nayak) 2020-06 00:00: 00 No [facility] Vitamin B12 (Cyanocobal nayak) Vitamin B12 (Cyanocobal nayak) 2020-06 00:00: 00 No 1000[facility] Vitamin B12 (Cyanocobal nayak) Vitamin B12 (Cyanocobal nayak) 2020-06 00:00: 00 No 1000[facility] Vitamin B12 (Cyanocobal nayak) Vitamin B12 (Cyanocobal nayak) 2020-06 00:00: 00 No 1000[facility] Vitamin B12 (Cyanocobal nayak) Vitamin B12 (Cyanocobal nayak) 2020-06 00:00: 00 No 1000[facility] Vitamin B12 (Cyanocobal nayak) Vitamin B12 (Cyanocobal nayak) 2020-06 00:00: 00 No 1000[facility] Vitamin B12 (Cyanocobal nayak) Vitamin B12 (Cyanocobal nayak) 2020-06 00:00: 00 No 1000[facility] Vitamin B12 (Cyanocobal nayak) Vitamin B12 (Cyanocobal nayak) 2020-06 00:00: 00 No 1000[facility] Vitamin B12 (Cyanocobal nayak) Vitamin B12 (Cyanocobal nayak) 2020-06 00:00: 00 No 1000[facility] Vitamin B12 (Cyanocobal nayak) Vitamin B12 (Cyanocobal nayak) 2020-06 00:00: 00 No 1000[facility] Vitamin B12 (Cyanocobal nayak) Vitamin B12 (Cyanocobal nayak) 2020-06 00:00: 00 No [facility] Vitamin B12 (Cyanocobal nayak) Vitamin B12 (Cyanocobal nayak) 2020-06 00:00: 00 No 1000[facility] Vitamin B12 (Cyanocobal nayak) Vitamin B12 (Cyanocobal nayak) 2020-06 00:00: 00 No 1000[facility] Vitamin B12 (Cyanocobal nayak) Vitamin B12 (Cyanocobal nayak) 2020-06 00:00: 00 No 1000[facility] Vitamin B12 (Cyanocobal nayak) Vitamin B12 (Cyanocobal nayak) 2020-06 00:00: 00 No 1000[facility] Vitamin B12 (Cyanocobal nayak) Vitamin B12 (Cyanocobal nayak) 2020-06 00:00: 00 No 1000[facility] Vitamin B12 (Cyanocobal nayak) Vitamin B12 (Cyanocobal nayak) 2020-06 00:00: 00 No [facility] Vitamin B12 (Cyanocobal nayak) Vitamin B12 (Cyanocobal nayak) 2020-06 00:00: 00 No [facility] Vitamin B12 (Cyanocobal nayak) Vitamin B12 (Cyanocobal nayak) 2020-06 00:00: 00 No [facility] Vitamin B12 (Cyanocobal nayak) Vitamin B12 (Cyanocobal nayak) 2020-06 00:00: 00 No [facility] Vitamin B12 (Cyanocobal nayak) Vitamin B12 (Cyanocobal nayak) 2020-06 00:00: 00 No 1000[facility] Vitamin B12 (Cyanocobal nayak) Vitamin B12 (Cyanocobal nayak) 2020-06 00:00: 00 No 1000[facility] Vitamin B12 (Cyanocobal nayak) Vitamin B12 (Cyanocobal nayak) 2020-06 00:00: 00 No 1000[facility] Vitamin B12 (Cyanocobal nayak) Vitamin B12 (Cyanocobal nayak) 2020-06 00:00: 00 No 1000[facility] Vitamin B12 (Cyanocobal nayak) Vitamin B12 (Cyanocobal nayak) 2020-06 00:00: 00 No 1000[facility] Vitamin B12 (Cyanocobal nayak) Vitamin B12 (Cyanocobal nayak) 2020-06 00:00: 00 No [facility] Vitamin B12 (Cyanocobal nayak) Vitamin B12 (Cyanocobal nayak) 2020-06 00:00: 00 No 1000[facility] Vitamin B12 (Cyanocobal nayak) Vitamin B12 (Cyanocobal nayak) 2020-06 00:00: 00 No 1000[facility] Vitamin B12 (Cyanocobal nayak) Vitamin B12 (Cyanocobal nayak) 2020-06 00:00: 00 No 1000[facility] Vitamin B12 (Cyanocobal nayak) Vitamin B12 (Cyanocobal nayak) 2020-06 00:00: 00 No 1000[facility] Vitamin B12 (Cyanocobal nayak) Vitamin B12 (Cyanocobal nayak) 2020-06 00:00: 00 No 1000[facility] Vitamin B12 (Cyanocobal nayak) Vitamin B12 (Cyanocobal nayak) 2020-06 00:00: 00 No 1000[facility] Vitamin B12 (Cyanocobal nayak) Vitamin B12 (Cyanocobal nayak) 2020-06 00:00: 00 No 1000[facility] Vitamin B12 (Cyanocobal nayak) Vitamin B12 (Cyanocobal nayak) 2020-06 00:00: 00 No 1000[facility] Vitamin B12 (Cyanocobal nayak) Vitamin B12 (Cyanocobal nayak) 2020-06 00:00: 00 No 1000[facility] Vitamin B12 (Cyanocobal nayak) Vitamin B12 (Cyanocobal nayak) 2020-06 00:00: 00 No 1000[facility] Vitamin B12 (Cyanocobal nayak) Vitamin B12 (Cyanocobal nayak) 2020-06 00:00: 00 No 1000[facility] Vitamin B12 (Cyanocobal nayak) Vitamin B12 (Cyanocobal nayak) 2020-06 00:00: 00 No 1000[facility] Vitamin B12 (Cyanocobal nayak) Vitamin B12 (Cyanocobal nayak) 2020-06 00:00: 00 No 1000[facility] Vitamin B12 (Cyanocobal nayak) Vitamin B12 (Cyanocobal nayak) 2020-06 00:00: 00 No 1000[facility] Vitamin B12 (Cyanocobal nayak) Vitamin B12 (Cyanocobal nayak) 2020-06 00:00: 00 No 1000[facility] Vitamin B12 (Cyanocobal nayak) Vitamin B12 (Cyanocobal nayak) 2020-06 2-09 00:00: 00 No [facility] Vitamin B12 (Cyanocobal nayak) Vitamin B12 (Cyanocobal nayak) 2020-06 2 00:00: 00 No [facility] Vitamin B12 (Cyanocobal nayak) Vitamin B12 (Cyanocobal nayak) 2020-06 00:00: 00 No [facility] Vitamin B12 (Cyanocobal nayak) Vitamin B12 (Cyanocobal nayak) 2020-06 00:00: 00 No [facility] Vitamin B12 (Cyanocobal nayak) Vitamin B12 (Cyanocobal nayak) 2020-06 00:00: 00 No 1000[facility] Vitamin B12 (Cyanocobal nayak) Vitamin B12 (Cyanocobal nayak) 2020-06 00:00: 00 No 1000[facility] Vitamin B12 (Cyanocobal nayak) Vitamin B12 (Cyanocobal nayak) 2020-06 00:00: 00 No 1000[facility] Vitamin B12 (Cyanocobal nayak) Vitamin B12 (Cyanocobal nayak) 2020-06 00:00: 00 No 1000[facility] Vitamin B12 (Cyanocobal nayak) Vitamin B12 (Cyanocobal nayak) 2020-06 00:00: 00 No 1000[facility] Vitamin B12 (Cyanocobal nayak) Vitamin B12 (Cyanocobal nayak) 2020-06 00:00: 00 No [facility] Vitamin B12 (Cyanocobal nayak) Vitamin B12 (Cyanocobal nayak) 2020-06 00:00: 00 No 1000[facility] Vitamin B12 (Cyanocobal nayak) Vitamin B12 (Cyanocobal nayak) 2020-06 00:00: 00 No 1000[facility] Vitamin B12 (Cyanocobal nayak) Vitamin B12 (Cyanocobal nayak) 2020-06 00:00: 00 No [facility] Vitamin B12 (Cyanocobal nayak) Vitamin B12 (Cyanocobal nayak) 2020-06 00:00: 00 No 1000[facility] Vitamin B12 (Cyanocobal nayak) Vitamin B12 (Cyanocobal nayak) 2020-06 00:00: 00 No 1000[facility] Vitamin B12 (Cyanocobal nayak) Vitamin B12 (Cyanocobal nayak) 2020-06 00:00: 00 No 1000[facility] Vitamin B12 (Cyanocobal nayak) Vitamin B12 (Cyanocobal nayak) 2020-06 00:00: 00 No 1000[facility] Vitamin B12 (Cyanocobal nayak) Vitamin B12 (Cyanocobal nayak) 2020-06 00:00: 00 No 1000[facility] Vitamin B12 (Cyanocobal nayak) Vitamin B12 (Cyanocobal nayak) 2020-06 00:00: 00 No 1000[facility] Vitamin B12 (Cyanocobal nayak) Vitamin B12 (Cyanocobal nayak) 2020-06 00:00: 00 No 1000[facility] Vitamin B12 (Cyanocobal nayak) Vitamin B12 (Cyanocobal nayak) 2020-06 00:00: 00 No 1000[facility] Vitamin B12 (Cyanocobal nayak) Vitamin B12 (Cyanocobal nayak) 2020-06 00:00: 00 No 1000[facility] Vitamin B12 (Cyanocobal nayak) Vitamin B12 (Cyanocobal nayak) 2020-06 00:00: 00 No 1000[facility] Vitamin B12 (Cyanocobal nayak) Vitamin B12 (Cyanocobal nayak) 2020-06 00:00: 00 No 1000[facility] Vitamin B12 (Cyanocobal nayak) Vitamin B12 (Cyanocobal nayak) 2020-06 00:00: 00 No 1000[facility] Vitamin B12 (Cyanocobal nayak) Vitamin B12 (Cyanocobal nayak) 2020-06 00:00: 00 No [facility] Vitamin B12 (Cyanocobal nayak) Vitamin B12 (Cyanocobal nayak) 2020-06 00:00: 00 No [facility] Vitamin B12 (Cyanocobal nayak) Vitamin B12 (Cyanocobal nayak) 2020-06 00:00: 00 No [facility] Vitamin B12 (Cyanocobal nayak) Vitamin B12 (Cyanocobal nayak) 2020-06 00:00: 00 No [facility] Vitamin B12 (Cyanocobal nayak) Vitamin B12 (Cyanocobal nayak) 2020-06 00:00: 00 No 1000[facility] Vitamin B12 (Cyanocobal nayak) Vitamin B12 (Cyanocobal nayak) 2020-06 00:00: 00 No 1000[facility] Vitamin B12 (Cyanocobal nayak) Vitamin B12 (Cyanocobal nayak) 2020-06 00:00: 00 No 1000[facility] Vitamin B12 (Cyanocobal nayak) Vitamin B12 (Cyanocobal nayak) 2020-06 00:00: 00 No 1000[facility] Vitamin B12 (Cyanocobal nayak) Vitamin B12 (Cyanocobal nayak) 2020-06 00:00: 00 No [facility] Vitamin B12 (Cyanocobal nayak) Vitamin B12 (Cyanocobal nayak) 2020-06 00:00: 00 No [facility] Vitamin B12 (Cyanocobal nayak) Vitamin B12 (Cyanocobal nayak) 2020-06 00:00: 00 No 1000[facility] Vitamin B12 (Cyanocobal nayak) Vitamin B12 (Cyanocobal nayak) 2020-06 00:00: 00 No [facility] Vitamin B12 (Cyanocobal nayka) Vitamin B12 (Cyanocobal nayak) 2020-06 00:00: 00 No [facility] Vitamin B12 (Cyanocobal nayak) Vitamin B12 (Cyanocobal nayak) 2020-06 00:00: 00 No 1000[facility] Vitamin B12 (Cyanocobal nayak) Vitamin B12 (Cyanocobal nayak) 2020-06 00:00: 00 No 1000[facility] Vitamin B12 (Cyanocobal nayak) Vitamin B12 (Cyanocobal nayak) 2020-06 00:00: 00 No 1000[facility] Vitamin B12 (Cyanocobal nayak) Vitamin B12 (Cyanocobal nayak) 2020-06 00:00: 00 No 1000[facility] Vitamin B12 (Cyanocobal nayak) Vitamin B12 (Cyanocobal nayak) 2020-06 00:00: 00 No 1000[facility] Vitamin B12 (Cyanocobal nayak) Vitamin B12 (Cyanocobal nayak) 2020-06 00:00: 00 No 1000[facility] Vitamin B12 (Cyanocobal nayak) Vitamin B12 (Cyanocobal nayak) 2020-06 00:00: 00 No 1000[facility] Vitamin B12 (Cyanocobal nayak) Vitamin B12 (Cyanocobal nayak) 2020-06 00:00: 00 No 1000[facility] Vitamin B12 (Cyanocobal nayak) Vitamin B12 (Cyanocobal nayak) 2020-06 00:00: 00 No 1000[facility] Vitamin B12 (Cyanocobal nayak) Vitamin B12 (Cyanocobal nayak) 2020-06 00:00: 00 No 1000[facility] Vitamin B12 (Cyanocobal nayak) Vitamin B12 (Cyanocobal nayak) 2020-06 00:00: 00 No 1000[facility] Vitamin B12 (Cyanocobal nayak) Vitamin B12 (Cyanocobal nayak) 2020-06 00:00: 00 No 1000[facility] Vitamin B12 (Cyanocobal nayak) Vitamin B12 (Cyanocobal nayak) 2020-06 00:00: 00 No [facility] Vitamin B12 (Cyanocobal nayak) Vitamin B12 (Cyanocobal nayak) 2020-06 00:00: 00 No [facility] Vitamin B12 (Cyanocobal nayak) Vitamin B12 (Cyanocobal nayak) 2020-06 00:00: 00 No [facility] Vitamin B12 (Cyanocobal nayak) Vitamin B12 (Cyanocobal nayak) 2020-06 00:00: 00 No [facility] Vitamin B12 (Cyanocobal nayak) Vitamin B12 (Cyanocobal nayak) 2020-06 00:00: 00 No [facility] Vitamin B12 (Cyanocobal nayak) Vitamin B12 (Cyanocobal nayak) 2020-06 00:00: 00 No 1000[facility] Vitamin B12 (Cyanocobal nayak) Vitamin B12 (Cyanocobal nayak) 2020-06 00:00: 00 No 1000[facility] Vitamin B12 (Cyanocobal nayak) Vitamin B12 (Cyanocobal nayak) 2020-06 00:00: 00 No 1000[facility] Vitamin B12 (Cyanocobal nayak) Vitamin B12 (Cyanocobal nayak) 2020-06 0- 00:00: 00 No [facility] Vitamin B12 (Cyanocobal nayak) Vitamin B12 (Cyanocobal nayak) 2020-06 0- 00:00: 00 No [facility] Vitamin B12 (Cyanocobal nayak) Vitamin B12 (Cyanocobal nayak) 2020-06 0- 00:00: 00 No 1000[facility] Vitamin B12 (Cyanocobal nayak) Vitamin B12 (Cyanocobal nayak) 2020-06 0- 00:00: 00 No [facility] Vitamin B12 (Cyanocobal nayak) Vitamin B12 (Cyanocobal nayak) 2020-06 0-01 00:00: 00 No [facility] Vitamin B12 (Cyanocobal nayak) Vitamin B12 (Cyanocobal nayak) 2020-06 0-01 00:00: 00 No 1000[facility] Vitamin B12 (Cyanocobal nayak) Vitamin B12 (Cyanocobal nayak) 2020-06 0-01 00:00: 00 No 1000[facility] Vitamin B12 (Cyanocobal nayak) Vitamin B12 (Cyanocobal nayak) 2020-06 0-01 00:00: 00 No 1000[facility] Vitamin B12 (Cyanocobal nayak) Vitamin B12 (Cyanocobal nayak) 2020-06 0-01 00:00: 00 No 1000[facility] Vitamin B12 (Cyanocobal nayak) Vitamin B12 (Cyanocobal nayak) 2020-06 0-01 00:00: 00 No 1000[facility] Vitamin B12 (Cyanocobal nayak) Vitamin B12 (Cyanocobal nayak) 2020-06 0-01 00:00: 00 No 1000[facility] Vitamin B12 (Cyanocobal nayak) Vitamin B12 (Cyanocobal nayak) 2020-06 0-01 00:00: 00 No 1000[facility] Vitamin B12 (Cyanocobal nayak) Vitamin B12 (Cyanocobal nayak) 2020-06 0-01 00:00: 00 No 1000[facility] Vitamin B12 (Cyanocobal nayak) Vitamin B12 (Cyanocobal nayak) 2020-06 0-01 00:00: 00 No 1000[facility] Vitamin B12 (Cyanocobal nayak) Vitamin B12 (Cyanocobal nayak) 2020-06 0-01 00:00: 00 No 1000[facility] Vitamin B12 (Cyanocobal nayak) Vitamin B12 (Cyanocobal nayak) 2020-06 0-01 00:00: 00 No 1000[facility] Vitamin B12 (Cyanocobal nayak) Vitamin B12 (Cyanocobal nayak) 2020-06 0-01 00:00: 00 No 1000[facility] Vitamin B12 (Cyanocobal nayak) Vitamin B12 (Cyanocobal nayak) 2020-06 0-01 00:00: 00 No [facility] Vitamin B12 (Cyanocobal nayak) Vitamin B12 (Cyanocobal nayak) 2020-06 0-01 00:00: 00 No [facility] Vitamin B12 (Cyanocobal nayak) Vitamin B12 (Cyanocobal nayak) 2020-06 0-01 00:00: 00 No [facility] Vitamin B12 (Cyanocobal nayak) Vitamin B12 (Cyanocobal nyaak) 2020-06 0-01 00:00: 00 No [facility] Vitamin B12 (Cyanocobal nayak) Vitamin B12 (Cyanocobal nayak) 2020-06 0-01 00:00: 00 No 1000[facility] Vitamin B12 (Cyanocobal nayak) Vitamin B12 (Cyanocobal nayak) 2020-06 0-01 00:00: 00 No 1000[facility] Vitamin B12 (Cyanocobal nayak) Vitamin B12 (Cyanocobal nayak) 2020-06 0-01 00:00: 00 No 1000[facility] Vitamin B12 (Cyanocobal nayak) Vitamin B12 (Cyanocobal nayak) 2020-06 0-01 00:00: 00 No 1000[facility] Vitamin B12 (Cyanocobal nayak) Vitamin B12 (Cyanocobal nayak) 2020-06 0-01 00:00: 00 No [facility] Vitamin B12 (Cyanocobal nayak) Vitamin B12 (Cyanocobal nayak) 2020-06 0-01 00:00: 00 No [facility] Vitamin B12 (Cyanocobal nayak) Vitamin B12 (Cyanocobal nayak) 2020-06 0-01 00:00: 00 No [facility] Vitamin B12 (Cyanocobal nayak) Vitamin B12 (Cyanocobal nayak) 2020-06 0-01 00:00: 00 No [facility] Vitamin B12 (Cyanocobal nayak) Vitamin B12 (Cyanocobal nayak) 2020-06 0-01 00:00: 00 No [facility] Vitamin B12 (Cyanocobal nayak) Vitamin B12 (Cyanocobal nayak) 2020-06 0-01 00:00: 00 No 1000[facility] Vitamin B12 (Cyanocobal nayak) Vitamin B12 (Cyanocobal nayak) 2020-06 0-01 00:00: 00 No 1000[facility] Vitamin B12 (Cyanocobal nayak) Vitamin B12 (Cyanocobal nayak) 2020-06 0-01 00:00: 00 No [facility] Vitamin B12 (Cyanocobal nayak) Vitamin B12 (Cyanocobal nayak) 2020-06 0-01 00:00: 00 No 1000[facility] Vitamin B12 (Cyanocobal nayak) Vitamin B12 (Cyanocobal nayak) 2020-06 0-01 00:00: 00 No 1000[facility] Vitamin B12 (Cyanocobal nayak) Vitamin B12 (Cyanocobal nayak) 2020-06 0-01 00:00: 00 No 1000[facility] Vitamin B12 (Cyanocobal nayak) Vitamin B12 (Cyanocobal nayak) 2020-06 0-01 00:00: 00 No 1000[facility] Vitamin B12 (Cyanocobal nayak) Vitamin B12 (Cyanocobal nayak) 2020-06 0-01 00:00: 00 No 1000[facility] Vitamin B12 (Cyanocobal nayak) Vitamin B12 (Cyanocobal nayak) 2020-06 0-01 00:00: 00 No 1000[facility] Vitamin B12 (Cyanocobal nayak) Vitamin B12 (Cyanocobal nayak) 2020-06 0-01 00:00: 00 No [facility] [facility] Vitamin B12 (Cyanocobal nayak) Vitamin B12 (Cyanocobal nayak) 2020-06 0-01 00:00: 00 No 1000ug [facility] Vitamin B12 (Cyanocobal nayak) Vitamin B12 (Cyanocobal nayak) 2020-06 0-01 00:00: 00 No 1000[facility] Vitamin B12 (Cyanocobal nayak) Vitamin B12 (Cyanocobal nayak) 2020-06 0-01 00:00: 00 No [facility] Vitamin B12 (Cyanocobal nayak) Vitamin B12 (Cyanocobal nayak) 2020-06 0-01 00:00: 00 No [facility] Vitamin B12 (Cyanocobal nayak) Vitamin B12 (Cyanocobal nayak) 2020-06 0-01 00:00: 00 No [facility] Vitamin B12 (Cyanocobal nayak) Vitamin B12 (Cyanocobal nayak) 2020-06 0-01 00:00: 00 No [facility] Vitamin B12 (Cyanocobal nayak) Vitamin B12 (Cyanocobal nayak) 2020-06 0-01 00:00: 00 No 1000[facility] Vitamin B12 (Cyanocobal nayak) Vitamin B12 (Cyanocobal nayak) 2020-06 0-01 00:00: 00 No 1000[facility] Vitamin B12 (Cyanocobal nayak) Vitamin B12 (Cyanocobal nayak) 2020-06 0-01 00:00: 00 No 1000ug [facility] Vitamin B12 (Cyanocobal nayak) Vitamin B12 (Cyanocobal nayak) 2020-06 0-01 00:00: 00 No 1000[facility] Vitamin B12 (Cyanocobal nayak) Vitamin B12 (Cyanocobal nayak) 2020-06 0-01 00:00: 00 No [facility] Vitamin B12 (Cyanocobal nayak) Vitamin B12 (Cyanocobal nayak) 2020-06 0-01 00:00: 00 No [facility] Vitamin B12 (Cyanocobal nayak) Vitamin B12 (Cyanocobal nayak) 2020-06 0-01 00:00: 00 No 1000[facility] Vitamin B12 (Cyanocobal nayak) Vitamin B12 (Cyanocobal nayak) 2020-06 0-01 00:00: 00 No [facility] Vitamin B12 (Cyanocobal nayak) Vitamin B12 (Cyanocobal nayak) 2020-06 0-01 00:00: 00 No [facility] Vitamin B12 (Cyanocobal nayak) Vitamin B12 (Cyanocobal nayak) 2020-1 0-01 00:00: 00 No 1000[facility] Vitamin B12 (Cyanocobal nayak) Vitamin B12 (Cyanocobal nayak) 2020-0 8-26 00:00: 00 No 1000[facility] Vitamin B12 (Cyanocobal nayak) Vitamin B12 (Cyanocobal nayak) 2020-0 8-26 00:00: 00 No 1000[facility] Vitamin B12 (Cyanocobal nayak) Vitamin B12 (Cyanocobal nayak) 2020-0 8-26 00:00: 00 No 1000[facility] Vitamin B12 (Cyanocobal nayak) Vitamin B12 (Cyanocobal nayak) 2020-0 8-26 00:00: 00 No 1000[facility] Vitamin B12 (Cyanocobal nayak) Vitamin B12 (Cyanocobal nayak) 2020-0 8-26 00:00: 00 No 1000[facility] Vitamin B12 (Cyanocobal nayak) Vitamin B12 (Cyanocobal nayak) 2020-0 8-26 00:00: 00 No 1000[facility] Vitamin B12 (Cyanocobal nayak) Vitamin B12 (Cyanocobal nayak) 2020-0 8-26 00:00: 00 No 1000[facility] Vitamin B12 (Cyanocobal nayak) Vitamin B12 (Cyanocobal nayak) 2020-0 8-26 00:00: 00 No 1000[facility] Vitamin B12 (Cyanocobal nayak) Vitamin B12 (Cyanocobal nayak) 2020-0 8-26 00:00: 00 No 1000[facility] Vitamin B12 (Cyanocobal nayak) Vitamin B12 (Cyanocobal nayak) 2020-0 8-26 00:00: 00 No 1000[facility] Vitamin B12 (Cyanocobal nayak) Vitamin B12 (Cyanocobal nayak) 2020-0 8-26 00:00: 00 No 1000[facility] Vitamin B12 (Cyanocobal nayak) Vitamin B12 (Cyanocobal nayak) 2020-0 8-26 00:00: 00 No [facility] Vitamin B12 (Cyanocobal nayak) Vitamin B12 (Cyanocobal nayak) 0 8 00:00: 00 No [facility] Vitamin B12 (Cyanocobal nayak) Vitamin B12 (Cyanocobal nayak) 0 8 00:00: 00 No [facility] Vitamin B12 (Cyanocobal nayak) Vitamin B12 (Cyanocobal nayak) 0 02-15 00:00: 00 No [facility] Vitamin B12 (Cyanocobal nayak) Vitamin B12 (Cyanocobal nayak) 0 02-15 00:00: 00 No 1000[facility] Vitamin B12 (Cyanocobal nayak) Vitamin B12 (Cyanocobal nayak) 0 02-15 00:00: 00 No [facility] Vitamin B12 (Cyanocobal nayak) Vitamin B12 (Cyanocobal nayak) 0 02-15 00:00: 00 No [facility] Vitamin B12 (Cyanocobal nayak) Vitamin B12 (Cyanocobal nayak) 0 02-15 00:00: 00 No 1000[facility] Vitamin B12 (Cyanocobal nayak) Vitamin B12 (Cyanocobal nayak) 0 8 00:00: 00 No [facility] Vitamin B12 (Cyanocobal nayak) Vitamin B12 (Cyanocobal nayak) 0 8 00:00: 00 No [facility] Vitamin B12 (Cyanocobal nayak) Vitamin B12 (Cyanocobal nayak) 0 8 00:00: 00 No [facility] Vitamin B12 (Cyanocobal nayak) Vitamin B12 (Cyanocobal nayak) 0 8 00:00: 00 No [facility] Vitamin B12 (Cyanocobal nayak) Vitamin B12 (Cyanocobal nayak) 0 8-26 00:00: 00 No [facility] Vitamin B12 (Cyanocobal nayak) Vitamin B12 (Cyanocobal nayak) 2020-0 8-26 00:00: 00 No 1000[facility] Vitamin B12 (Cyanocobal nayak) Vitamin B12 (Cyanocobal nayak) 2020-0 8-26 00:00: 00 No 1000[facility] Vitamin B12 (Cyanocobal nayak) Vitamin B12 (Cyanocobal nayak) 0 8-26 00:00: 00 No 1000[facility] Vitamin B12 (Cyanocobal nayak) Vitamin B12 (Cyanocobal nayak) 0 8- 00:00: 00 No 1000[facility] Vitamin B12 (Cyanocobal nayak) Vitamin B12 (Cyanocobal nayak) 2020-0 8 00:00: 00 No 1000[facility] Vitamin B12 (Cyanocobal nayak) Vitamin B12 (Cyanocobal nayak) 0 8 00:00: 00 No 1000[facility] Vitamin B12 (Cyanocobal nayak) Vitamin B12 (Cyanocobal nayak) 0 8-26 00:00: 00 No 1000[facility] Vitamin B12 (Cyanocobal nayak) Vitamin B12 (Cyanocobal nayak) 2020-0 8-26 00:00: 00 No 1000[facility] Vitamin B12 (Cyanocobal nayak) Vitamin B12 (Cyanocobal nayak) 2020-0 8-26 00:00: 00 No 1000[facility] Vitamin B12 (Cyanocobal nayak) Vitamin B12 (Cyanocobal nayak) 2020-0 8-26 00:00: 00 No 1000[facility] Vitamin B12 (Cyanocobal nayak) Vitamin B12 (Cyanocobal nayak) 0 8-26 00:00: 00 No 1000[facility] Vitamin B12 (Cyanocobal nayak) Vitamin B12 (Cyanocobal nayak) 2020-0 8-26 00:00: 00 No 1000[facility] Vitamin B12 (Cyanocobal nayak) Vitamin B12 (Cyanocobal nayak) 2020-0 8-26 00:00: 00 No [facility] Vitamin B12 (Cyanocobal nayak) Vitamin B12 (Cyanocobal nayak) 0 8 00:00: 00 No [facility] Vitamin B12 (Cyanocobal nayak) Vitamin B12 (Cyanocobal nayak) 0 8 00:00: 00 No [facility] Vitamin B12 (Cyanocobal nayak) Vitamin B12 (Cyanocobal nayak) 0 02-15 00:00: 00 No [facility] Vitamin B12 (Cyanocobal nayak) Vitamin B12 (Cyanocobal nayak) 0 02-15 00:00: 00 No 1000[facility] Vitamin B12 (Cyanocobal nayak) Vitamin B12 (Cyanocobal nayak) 0 02-15 00:00: 00 No [facility] Vitamin B12 (Cyanocobal nayak) Vitamin B12 (Cyanocobal nayak) 0 02-15 00:00: 00 No [facility] Vitamin B12 (Cyanocobal nayak) Vitamin B12 (Cyanocobal nayak) 0 02-15 00:00: 00 No 1000[facility] Vitamin B12 (Cyanocobal nayak) Vitamin B12 (Cyanocobal nayak) 0 8 00:00: 00 No [facility] Vitamin B12 (Cyanocobal nayak) Vitamin B12 (Cyanocobal nayak) 0 8 00:00: 00 No [facility] Vitamin B12 (Cyanocobal nayak) Vitamin B12 (Cyanocobal nayak) 0 8 00:00: 00 No [facility] Vitamin B12 (Cyanocobal nayak) Vitamin B12 (Cyanocobal nayak) 0 8 00:00: 00 No [facility] Vitamin B12 (Cyanocobal nayak) Vitamin B12 (Cyanocobal nayak) 0 8 00:00: 00 No 1000[facility] Vitamin B12 (Cyanocobal nayak) Vitamin B12 (Cyanocobal nayak) 0 8- 00:00: 00 No 1000[facility] Vitamin B12 (Cyanocobal nayak) Vitamin B12 (Cyanocobal nayak) 0 8- 00:00: 00 No 1000[facility] Vitamin B12 (Cyanocobal nayak) Vitamin B12 (Cyanocobal nayak) 0 8- 00:00: 00 No 1000[facility] Vitamin B12 (Cyanocobal nayak) Vitamin B12 (Cyanocobal nayak) 0 8 00:00: 00 No 1000ug [facility] Vitamin B12 (Cyanocobal nayak) Vitamin B12 (Cyanocobal nayak) 0 8 00:00: 00 No 1000[facility] Vitamin B12 (Cyanocobal nayak) Vitamin B12 (Cyanocobal nayak) 0 8 00:00: 00 No 1000[facility] Vitamin B12 (Cyanocobal nayak) Vitamin B12 (Cyanocobal nayak) 0 8 00:00: 00 No 1000[facility] Tamsulosin HCl 0.4 MG Tamsulosin HCl 0.4 MG 12-26 00:00: 00 03-26 00:00 :00 No 1{capsu le} QD Tamsulosin HCl 0.4 MG Tamsulosin HCl 0.4 MG Tamsulosin HCl 0.4 MG 12-26 00:00: 00 03-26 00:00 :00 No 1{capsu le} QD Tamsulosin HCl 0.4 MG Tamsulosin HCl 0.4 MG Tamsulosin HCl 0.4 MG 12-26 00:00: 00 03-26 00:00 :00 No 1{capsu le} QD Tamsulosin HCl 0.4 MG Tamsulosin HCl 0.4 MG Tamsulosin HCl 0.4 MG 12-26 00:00: 00 03-26 00:00 :00 No 1{capsu le} QD Tamsulosin HCl 0.4 MG Tamsulosin HCl 0.4 MG Tamsulosin HCl 0.4 MG 2020-0 12-26 00:00: 00 03-26 00:00 :00 No 1{capsu le} QD Tamsulosin HCl 0.4 MG Tamsulosin HCl 0.4 MG Tamsulosin HCl 0.4 MG 2020-0 12-26 00:00: 00 03-26 00:00 :00 No 1{capsu le} QD Tamsulosin HCl 0.4 MG Tamsulosin HCl 0.4 MG Tamsulosin HCl 0.4 MG 2020-0 12-26 00:00: 00 03-26 00:00 :00 No 1{capsu le} QD Tamsulosin HCl 0.4 MG Tamsulosin HCl 0.4 MG Tamsulosin HCl 0.4 MG 2020-0 12-26 00:00: 00 03-26 00:00 :00 No 1{capsu le} QD Tamsulosin HCl 0.4 MG Tamsulosin HCl 0.4 MG Tamsulosin HCl 0.4 MG 2020-0 12-26 00:00: 00 03-26 00:00 :00 No 1{capsu le} QD Tamsulosin HCl 0.4 MG Tamsulosin HCl 0.4 MG Tamsulosin HCl 0.4 MG 2020-0 12-26 00:00: 00 03-26 00:00 :00 No 1{capsu le} QD Tamsulosin HCl 0.4 MG Tamsulosin HCl 0.4 MG Tamsulosin HCl 0.4 MG 2020-0 12-26 00:00: 00 03-26 00:00 :00 No 1{capsu le} QD Tamsulosin HCl 0.4 MG Tamsulosin HCl 0.4 MG Tamsulosin HCl 0.4 MG 2020-0 12-26 00:00: 00 03-26 00:00 :00 No 1{capsu le} QD Tamsulosin HCl 0.4 MG Vitamin B12 (Cyanocobal nayak) Vitamin B12 (Cyanocobal nayak) 2020-12-21 00:00: 00 No [facility] Vitamin B12 (Cyanocobal nayak) Vitamin B12 (Cyanocobal nayak) 0 12-21 00:00: 00 No [facility] Vitamin B12 (Cyanocobal nayak) Vitamin B12 (Cyanocobal nayak) 0 12-21 00:00: 00 No [facility] Vitamin B12 (Cyanocobal nayak) Vitamin B12 (Cyanocobal nayak) 0 12-21 00:00: 00 No [facility] Vitamin B12 (Cyanocobal nayak) Vitamin B12 (Cyanocobal nayak) 0 12-21 00:00: 00 No [facility] Vitamin B12 (Cyanocobal nayak) Vitamin B12 (Cyanocobal nayak) 12-21 00:00: 00 No 1000[facility] Vitamin B12 (Cyanocobal nayak) Vitamin B12 (Cyanocobal nayak) 0 12-21 00:00: 00 No 1000[facility] Vitamin B12 (Cyanocobal nayak) Vitamin B12 (Cyanocobal nayak) 12-21 00:00: 00 No 1000[facility] Vitamin B12 (Cyanocobal nayak) Vitamin B12 (Cyanocobal nayak) 12-21 00:00: 00 No 1000[facility] Vitamin B12 (Cyanocobal nayak) Vitamin B12 (Cyanocobal nayak) 0 12-21 00:00: 00 No [facility] Vitamin B12 (Cyanocobal nayak) Vitamin B12 (Cyanocobal nayak) 0 12-21 00:00: 00 No [facility] Vitamin B12 (Cyanocobal nayak) Vitamin B12 (Cyanocobal nayak) 0 12-21 00:00: 00 No 1000[facility] Vitamin B12 (Cyanocobal nayak) Vitamin B12 (Cyanocobal nayak) 0 7 00:00: 00 No [facility] Vitamin B12 (Cyanocobal nayak) Vitamin B12 (Cyanocobal nayak) 0 12-21 00:00: 00 No [facility] Vitamin B12 (Cyanocobal nayak) Vitamin B12 (Cyanocobal nayak) 0 12-21 00:00: 00 No 1000[facility] Vitamin B12 (Cyanocobal nayak) Vitamin B12 (Cyanocobal nayak) 0 7 00:00: 00 No 1000[facility] Vitamin B12 (Cyanocobal nayak) Vitamin B12 (Cyanocobal nayak) 0 7- 00:00: 00 No 1000[facility] Vitamin B12 (Cyanocobal nayak) Vitamin B12 (Cyanocobal nayak) 0 7 00:00: 00 No 1000[facility] Vitamin B12 (Cyanocobal nayak) Vitamin B12 (Cyanocobal nayak) 0 12-21 00:00: 00 No 1000[facility] Vitamin B12 (Cyanocobal nayak) Vitamin B12 (Cyanocobal nayak) 0 12-21 00:00: 00 No 1000[facility] Vitamin B12 (Cyanocobal nyaak) Vitamin B12 (Cyanocobal nayak) 0 7 00:00: 00 No 1000[facility] Vitamin B12 (Cyanocobal nayak) Vitamin B12 (Cyanocobal nayak) 0 12-21 00:00: 00 No 1000[facility] Vitamin B12 (Cyanocobal nayak) Vitamin B12 (Cyanocobal nayak) 0 7 00:00: 00 No 1000[facility] Vitamin B12 (Cyanocobal nayak) Vitamin B12 (Cyanocobal nayak) 0 7- 00:00: 00 No 1000[facility] Vitamin B12 (Cyanocobal nayak) Vitamin B12 (Cyanocobal nayak) 0 7- 00:00: 00 No 1000[facility] Vitamin B12 (Cyanocobal nayak) Vitamin B12 (Cyanocobal nayak) 0 7- 00:00: 00 No 1000[facility] Vitamin B12 (Cyanocobal nayak) Vitamin B12 (Cyanocobal nayak) 0 12-21 00:00: 00 No [facility] Vitamin B12 (Cyanocobal nayak) Vitamin B12 (Cyanocobal nayak) 0 12-21 00:00: 00 No [facility] Vitamin B12 (Cyanocobal nayak) Vitamin B12 (Cyanocobal nayak) 0 12-21 00:00: 00 No [facility] Vitamin B12 (Cyanocobal nayak) Vitamin B12 (Cyanocobal nayak) 0 12-21 00:00: 00 No [facility] Vitamin B12 (Cyanocobal nayak) Vitamin B12 (Cyanocobal nayak) 12-21 00:00: 00 No 1000[facility] Vitamin B12 (Cyanocobal nayak) Vitamin B12 (Cyanocobal nayak) 0 12-21 00:00: 00 No 1000[facility] Vitamin B12 (Cyanocobal nayak) Vitamin B12 (Cyanocobal nayak) 12-21 00:00: 00 No 1000[facility] Vitamin B12 (Cyanocobal nayak) Vitamin B12 (Cyanocobal nayak) 12-21 00:00: 00 No 1000[facility] Vitamin B12 (Cyanocobal nayak) Vitamin B12 (Cyanocobal nayak) 0 12-21 00:00: 00 No [facility] Vitamin B12 (Cyanocobal nayak) Vitamin B12 (Cyanocobal nayak) 0 12-21 00:00: 00 No [facility] Vitamin B12 (Cyanocobal nayak) Vitamin B12 (Cyanocobal nayak) 0 12-21 00:00: 00 No 1000[facility] Vitamin B12 (Cyanocobal nayak) Vitamin B12 (Cyanocobal nayak) 0 7 00:00: 00 No [facility] Vitamin B12 (Cyanocobal nayak) Vitamin B12 (Cyanocobal nayak) 0 12-21 00:00: 00 No [facility] Vitamin B12 (Cyanocobal nayak) Vitamin B12 (Cyanocobal nayak) 0 12-21 00:00: 00 No 1000[facility] Vitamin B12 (Cyanocobal nayak) Vitamin B12 (Cyanocobal nayak) 0 7 00:00: 00 No 1000[facility] Vitamin B12 (Cyanocobal nayak) Vitamin B12 (Cyanocobal nayak) 0 7- 00:00: 00 No 1000[facility] Vitamin B12 (Cyanocobal nayak) Vitamin B12 (Cyanocobal nayak) 0 7 00:00: 00 No 1000[facility] Vitamin B12 (Cyanocobal nayak) Vitamin B12 (Cyanocobal nayak) 0 12-21 00:00: 00 No 1000[facility] Vitamin B12 (Cyanocobal nayak) Vitamin B12 (Cyanocobal nayak) 0 12-21 00:00: 00 No 1000[facility] Vitamin B12 (Cyanocobal nayak) Vitamin B12 (Cyanocobal nayak) 0 7 00:00: 00 No 1000[facility] Vitamin B12 (Cyanocobal nayak) Vitamin B12 (Cyanocobal nayak) 0 12-21 00:00: 00 No 1000[facility] Vitamin B12 (Cyanocobal nayak) Vitamin B12 (Cyanocobal nayak) 0 7 00:00: 00 No 1000[facility] Vitamin B12 (Cyanocobal nayak) Vitamin B12 (Cyanocobal nayak) 0 7- 00:00: 00 No 1000[facility] Vitamin B12 (Cyanocobal nayak) Vitamin B12 (Cyanocobal nayak) 0 7- 00:00: 00 No 1000[facility] Vitamin B12 (Cyanocobal nayak) Vitamin B12 (Cyanocobal nayak) 0 7- 00:00: 00 No 1000[facility] Vitamin B12 (Cyanocobal nayak) Vitamin B12 (Cyanocobal nayak) 0 7- 00:00: 00 No 1000[facility] Vitamin B12 (Cyanocobal nayak) Vitamin B12 (Cyanocobal nayak) 0 7- 00:00: 00 No 1000[facility] Vitamin B12 (Cyanocobal nayak) Vitamin B12 (Cyanocobal nayak) 0 7- 00:00: 00 No 1000[facility] Vitamin B12 (Cyanocobal nayak) Vitamin B12 (Cyanocobal nayak) 0 7- 00:00: 00 No 1000[facility] Vitamin B12 (Cyanocobal nayak) Vitamin B12 (Cyanocobal nayak) 0 7- 00:00: 00 No 1000[facility] Flagyl 500 mg tablet 0 6-22 00:00: 00 No 1mg Diflucan 150 mg tablet 0 6-17 00:00: 00 No 1mg Vitamin B12 (Cyanocobal nayak) Vitamin B12 (Cyanocobal nayak) 0 6-15 00:00: 00 No 1000[facility] Vitamin B12 (Cyanocobal nayak) Vitamin B12 (Cyanocobal nayak) 0 6-15 00:00: 00 No 1000[facility] Vitamin B12 (Cyanocobal nayak) Vitamin B12 (Cyanocobal nayak) 0 6-15 00:00: 00 No 1000ug [facility] Vitamin B12 (Cyanocobal nayak) Vitamin B12 (Cyanocobal nayak) 0 6-15 00:00: 00 No 1000[facility] Vitamin B12 (Cyanocobal nayak) Vitamin B12 (Cyanocobal nayak) 0 6-15 00:00: 00 No 1000[facility] Vitamin B12 (Cyanocobal nayak) Vitamin B12 (Cyanocobal nayak) 0 6-15 00:00: 00 No 1000[facility] Vitamin B12 (Cyanocobal nayak) Vitamin B12 (Cyanocobal nayak) 0 6-15 00:00: 00 No [facility] Vitamin B12 (Cyanocobal nayak) Vitamin B12 (Cyanocobal nayak) 2020-0 6-15 00:00: 00 No [facility] Vitamin B12 (Cyanocobal nayak) Vitamin B12 (Cyanocobal nayak) 2020-0 6-15 00:00: 00 No 1000[facility] Vitamin B12 (Cyanocobal nayak) Vitamin B12 (Cyanocobal nayak) 2020-0 6-15 00:00: 00 No [facility] Vitamin B12 (Cyanocobal nayak) Vitamin B12 (Cyanocobal nayak) 2020-0 6-15 00:00: 00 No 1000[facility] Vitamin B12 (Cyanocobal nayak) Vitamin B12 (Cyanocobal nayak) 2020-0 6-15 00:00: 00 No 1000[facility] Vitamin B12 (Cyanocobal nayak) Vitamin B12 (Cyanocobal nayak) 0 6-15 00:00: 00 No 1000[facility] Vitamin B12 (Cyanocobal nayak) Vitamin B12 (Cyanocobal nayak) 2020-0 6-15 00:00: 00 No 1000[facility] Vitamin B12 (Cyanocobal nayak) Vitamin B12 (Cyanocobal nayak) 2020-0 6-15 00:00: 00 No 1000[facility] Vitamin B12 (Cyanocobal nayak) Vitamin B12 (Cyanocobal nayak) 2020-0 6-15 00:00: 00 No 1000[facility] Vitamin B12 (Cyanocobal nayak) Vitamin B12 (Cyanocobal nayak) 2020-0 6-15 00:00: 00 No [facility] Vitamin B12 (Cyanocobal nayak) Vitamin B12 (Cyanocobal nayak) 2020-0 6-15 00:00: 00 No 1000[facility] Vitamin B12 (Cyanocobal nayak) Vitamin B12 (Cyanocobal nayak) 2020-0 6-15 00:00: 00 No [facility] Vitamin B12 (Cyanocobal nayak) Vitamin B12 (Cyanocobal nayak) 2020-0 6-15 00:00: 00 No [facility] Vitamin B12 (Cyanocobal nayak) Vitamin B12 (Cyanocobal nayak) 2020-0 6-15 00:00: 00 No [facility] Vitamin B12 (Cyanocobal nayak) Vitamin B12 (Cyanocobal nayak) 2020-0 6-15 00:00: 00 No [facility] Vitamin B12 (Cyanocobal nayak) Vitamin B12 (Cyanocobal nayak) 2020-0 6-15 00:00: 00 No [facility] Vitamin B12 (Cyanocobal nayak) Vitamin B12 (Cyanocobal nayak) 0 6-15 00:00: 00 No [facility] Vitamin B12 (Cyanocobal nayak) Vitamin B12 (Cyanocobal nayak) 2020-0 6-15 00:00: 00 No 1000[facility] Vitamin B12 (Cyanocobal nayak) Vitamin B12 (Cyanocobal nayak) 2020-0 6-15 00:00: 00 No 1000[facility] Vitamin B12 (Cyanocobal nayak) Vitamin B12 (Cyanocobal nayak) 0 6-15 00:00: 00 No 1000[facility] Vitamin B12 (Cyanocobal nayak) Vitamin B12 (Cyanocobal nayak) 2020-0 6-15 00:00: 00 No 1000[facility] Vitamin B12 (Cyanocobal nayak) Vitamin B12 (Cyanocobal nayak) 2020-0 6-15 00:00: 00 No [facility] Vitamin B12 (Cyanocobal nayak) Vitamin B12 (Cyanocobal nayak) 2020-0 6-15 00:00: 00 No 1000[facility] Vitamin B12 (Cyanocobal nayak) Vitamin B12 (Cyanocobal nayak) 2020-0 6-15 00:00: 00 No 1000[facility] Vitamin B12 (Cyanocobal nayak) Vitamin B12 (Cyanocobal nayak) 2020-0 6-15 00:00: 00 No [facility] Vitamin B12 (Cyanocobal nayak) Vitamin B12 (Cyanocobal nayak) 2020-0 6-15 00:00: 00 No [facility] Vitamin B12 (Cyanocobal nayak) Vitamin B12 (Cyanocobal nayak) 2020-0 6-15 00:00: 00 No 1000[facility] Vitamin B12 (Cyanocobal nayak) Vitamin B12 (Cyanocobal nayak) 2020-0 6-15 00:00: 00 No [facility] Vitamin B12 (Cyanocobal nayak) Vitamin B12 (Cyanocobal nayak) 2020-0 6-15 00:00: 00 No [facility] [facility] Vitamin B12 (Cyanocobal nayak) Vitamin B12 (Cyanocobal nayak) 2020-0 6-15 00:00: 00 No 1000ug [facility] Vitamin B12 (Cyanocobal nayak) Vitamin B12 (Cyanocobal nayak) 0 6-15 00:00: 00 No 1000[facility] Vitamin B12 (Cyanocobal nayak) Vitamin B12 (Cyanocobal nayak) 2020-0 6-15 00:00: 00 No 1000[facility] Vitamin B12 (Cyanocobal nayak) Vitamin B12 (Cyanocobal nayak) 2020-0 6-15 00:00: 00 No 1000[facility] Vitamin B12 (Cyanocobal nayak) Vitamin B12 (Cyanocobal nayak) 2020-0 6-15 00:00: 00 No 1000[facility] Vitamin B12 (Cyanocobal nayak) Vitamin B12 (Cyanocobal nayak) 2020-0 6-15 00:00: 00 No 1000ug [facility] Vitamin B12 (Cyanocobal nayak) Vitamin B12 (Cyanocobal nayak) 2020-0 6-15 00:00: 00 No 1000[facility] Vitamin B12 (Cyanocobal nayak) Vitamin B12 (Cyanocobal nayak) 2020-0 6-15 00:00: 00 No [facility] Vitamin B12 (Cyanocobal nayak) Vitamin B12 (Cyanocobal nayak) 2020-0 6-15 00:00: 00 No [facility] Vitamin B12 (Cyanocobal nayak) Vitamin B12 (Cyanocobal nayak) 2020-0 6-15 00:00: 00 No [facility] Vitamin B12 (Cyanocobal nayak) Vitamin B12 (Cyanocobal nayak) 2020-0 6-15 00:00: 00 No [facility] Vitamin B12 (Cyanocobal nayak) Vitamin B12 (Cyanocobal nayak) 2020-0 6-15 00:00: 00 No [facility] Vitamin B12 (Cyanocobal nayak) Vitamin B12 (Cyanocobal nayak) 0 6-15 00:00: 00 No 1000[facility] Vitamin B12 (Cyanocobal nayak) Vitamin B12 (Cyanocobal nayak) 2020-0 6-15 00:00: 00 No 1000[facility] Vitamin B12 (Cyanocobal nayak) Vitamin B12 (Cyanocobal nayak) 2020-0 6-15 00:00: 00 No 1000[facility] Vitamin B12 (Cyanocobal nayak) Vitamin B12 (Cyanocobal nayak) 0 6-15 00:00: 00 No 1000[facility] Vitamin B12 (Cyanocobal nayak) Vitamin B12 (Cyanocobal nayak) 2020-0 6-15 00:00: 00 No 1000[facility] Vitamin B12 (Cyanocobal nayak) Vitamin B12 (Cyanocobal nayak) 2020-0 6-15 00:00: 00 No [facility] Vitamin B12 (Cyanocobal nayak) Vitamin B12 (Cyanocobal nayak) 2020-0 6-15 00:00: 00 No 1000[facility] Vitamin B12 (Cyanocobal nayak) Vitamin B12 (Cyanocobal nayak) 2020-0 6-15 00:00: 00 No 1000[facility] Vitamin B12 (Cyanocobal nayak) Vitamin B12 (Cyanocobal nayak) 2020-0 5-06 00:00: 00 No [facility] Vitamin B12 (Cyanocobal nayak) Vitamin B12 (Cyanocobal nayak) 0 -06 00:00: 00 No [facility] Vitamin B12 (Cyanocobal nayak) Vitamin B12 (Cyanocobal nayak) 0 5-06 00:00: 00 No [facility] Vitamin B12 (Cyanocobal nayak) Vitamin B12 (Cyanocobal nayak) 0 5-06 00:00: 00 No [facility] Vitamin B12 (Cyanocobal nayak) Vitamin B12 (Cyanocobal nayak) 0 -06 00:00: 00 No [facility] Vitamin B12 (Cyanocobal nayak) Vitamin B12 (Cyanocobal nayak) 0 -06 00:00: 00 No 1000[facility] Vitamin B12 (Cyanocobal nayak) Vitamin B12 (Cyanocobal nayak) 0 -06 00:00: 00 No 1000[facility] Vitamin B12 (Cyanocobal nayak) Vitamin B12 (Cyanocobal nayak) 0 -06 00:00: 00 No 1000[facility] Vitamin B12 (Cyanocobal nayak) Vitamin B12 (Cyanocobal nayak) 0 -06 00:00: 00 No 1000[facility] Vitamin B12 (Cyanocobal nayak) Vitamin B12 (Cyanocobal nayak) 0 -06 00:00: 00 No 1000[facility] Vitamin B12 (Cyanocobal nayak) Vitamin B12 (Cyanocobal nayak) 0 5-06 00:00: 00 No [facility] Vitamin B12 (Cyanocobal nayak) Vitamin B12 (Cyanocobal nayak) 0 5-06 00:00: 00 No 1000[facility] Vitamin B12 (Cyanocobal nayak) Vitamin B12 (Cyanocobal nayak) 2020-0 5-06 00:00: 00 No [facility] Vitamin B12 (Cyanocobal nayak) Vitamin B12 (Cyanocobal nayak) 2020-0 5-06 00:00: 00 No [facility] Vitamin B12 (Cyanocobal nayak) Vitamin B12 (Cyanocobal nayak) 0 5-06 00:00: 00 No [facility] Vitamin B12 (Cyanocobal nayak) Vitamin B12 (Cyanocobal nayak) 0 5-06 00:00: 00 No [facility] Vitamin B12 (Cyanocobal nayak) Vitamin B12 (Cyanocobal nayak) 0 5-06 00:00: 00 No [facility] Vitamin B12 (Cyanocobal nayak) Vitamin B12 (Cyanocobal nayak) 0 -06 00:00: 00 No [facility] Vitamin B12 (Cyanocobal nayak) Vitamin B12 (Cyanocobal nayak) 0 -06 00:00: 00 No 1000[facility] Vitamin B12 (Cyanocobal nayak) Vitamin B12 (Cyanocobal nayak) 0 -06 00:00: 00 No [facility] Vitamin B12 (Cyanocobal nayak) Vitamin B12 (Cyanocobal nayak) 0 -06 00:00: 00 No 1000[facility] Vitamin B12 (Cyanocobal nayak) Vitamin B12 (Cyanocobal nayak) 0 5-06 00:00: 00 No [facility] Vitamin B12 (Cyanocobal nayak) Vitamin B12 (Cyanocobal nayak) 0 5-06 00:00: 00 No [facility] Vitamin B12 (Cyanocobal nayak) Vitamin B12 (Cyanocobal nayak) 0 5-06 00:00: 00 No [facility] Vitamin B12 (Cyanocobal nayak) Vitamin B12 (Cyanocobal nayak) 2020-0 5-06 00:00: 00 No [facility] Vitamin B12 (Cyanocobal nayak) Vitamin B12 (Cyanocobal nayak) 0 5-06 00:00: 00 No [facility] Vitamin B12 (Cyanocobal nayak) Vitamin B12 (Cyanocobal nayak) 0 -06 00:00: 00 No [facility] Vitamin B12 (Cyanocobal nayak) Vitamin B12 (Cyanocobal nayak) 0 5-06 00:00: 00 No [facility] Vitamin B12 (Cyanocobal nayak) Vitamin B12 (Cyanocobal nayak) 0 5-06 00:00: 00 No [facility] Vitamin B12 (Cyanocobal nayak) Vitamin B12 (Cyanocobal nayak) 0 -06 00:00: 00 No [facility] Vitamin B12 (Cyanocobal nayak) Vitamin B12 (Cyanocobal nayak) 0 -06 00:00: 00 No 1000[facility] Vitamin B12 (Cyanocobal nayak) Vitamin B12 (Cyanocobal nayak) 0 -06 00:00: 00 No 1000[facility] Vitamin B12 (Cyanocobal anyak) Vitamin B12 (Cyanocobal nayak) 0 -06 00:00: 00 No 1000[facility] Vitamin B12 (Cyanocobal nayak) Vitamin B12 (Cyanocobal nayak) 0 -06 00:00: 00 No [facility] Vitamin B12 (Cyanocobal nayak) Vitamin B12 (Cyanocobal nayak) 0 -06 00:00: 00 No 1000[facility] Vitamin B12 (Cyanocobal nayak) Vitamin B12 (Cyanocobal nayak) 0 5-06 00:00: 00 No [facility] Vitamin B12 (Cyanocobal nayak) Vitamin B12 (Cyanocobal nayak) 0 5-06 00:00: 00 No 1000[facility] Vitamin B12 (Cyanocobal nayak) Vitamin B12 (Cyanocobal nayak) 2020-0 5-06 00:00: 00 No [facility] Vitamin B12 (Cyanocobal nayak) Vitamin B12 (Cyanocobal nayak) 2020-0 5-06 00:00: 00 No [facility] Vitamin B12 (Cyanocobal nayak) Vitamin B12 (Cyanocobal nayak) 0 5-06 00:00: 00 No [facility] Vitamin B12 (Cyanocobal nayak) Vitamin B12 (Cyanocobal nayak) 0 5-06 00:00: 00 No [facility] Vitamin B12 (Cyanocobal nayak) Vitamin B12 (Cyanocobal nayak) 0 5-06 00:00: 00 No [facility] Vitamin B12 (Cyanocobal nayak) Vitamin B12 (Cyanocobal nayak) 0 -06 00:00: 00 No [facility] Vitamin B12 (Cyanocobal nayak) Vitamin B12 (Cyanocobal nayak) 0 -06 00:00: 00 No 1000[facility] Vitamin B12 (Cyanocobal nayak) Vitamin B12 (Cyanocobal nayak) 0 -06 00:00: 00 No [facility] Vitamin B12 (Cyanocobal nayak) Vitamin B12 (Cyanocobal nayak) 0 -06 00:00: 00 No 1000[facility] Vitamin B12 (Cyanocobal nayak) Vitamin B12 (Cyanocobal nayak) 0 5-06 00:00: 00 No [facility] Vitamin B12 (Cyanocobal nayak) Vitamin B12 (Cyanocobal nayak) 0 5-06 00:00: 00 No [facility] Vitamin B12 (Cyanocobal nayak) Vitamin B12 (Cyanocobal nayak) 0 5-06 00:00: 00 No [facility] Vitamin B12 (Cyanocobal nayak) Vitamin B12 (Cyanocobal nayak) 2020-0 5-06 00:00: 00 No [facility] Vitamin B12 (Cyanocobal nayak) Vitamin B12 (Cyanocobal nayak) 0 5-06 00:00: 00 No [facility] Vitamin B12 (Cyanocobal nayak) Vitamin B12 (Cyanocobal nayak) 0 -06 00:00: 00 No 1000[facility] Vitamin B12 (Cyanocobal nayak) Vitamin B12 (Cyanocobal nayak) 0 -06 00:00: 00 No 1000[facility] Vitamin B12 (Cyanocobal nayak) Vitamin B12 (Cyanocobal nayak) 0 -06 00:00: 00 No 1000[facility] Vitamin B12 (Cyanocobal nayak) Vitamin B12 (Cyanocobal nayak) 0 -06 00:00: 00 No [facility] Vitamin B12 (Cyanocobal nayak) Vitamin B12 (Cyanocobal nayak) 0 06 00:00: 00 No [facility] Valtrex 1 GM Valtrex 1 GM 0 10-26 00:00: 00 11-02 00:00 :00 No 1{table t} TID Valtrex 1 GM Vitamin B12 (Cyanocobal nayak) Vitamin B12 (Cyanocobal nayak) 0 3-23 00:00: 00 No [facility] Vitamin B12 (Cyanocobal nayak) Vitamin B12 (Cyanocobal nayak) 0 3-23 00:00: 00 No 1000[facility] Vitamin B12 (Cyanocobal nayak) Vitamin B12 (Cyanocobal nayak) 0 3-23 00:00: 00 No 1000[facility] Vitamin B12 (Cyanocobal nayak) Vitamin B12 (Cyanocobal nayak) 0 3-23 00:00: 00 No 1000[facility] Vitamin B12 (Cyanocobal nayak) Vitamin B12 (Cyanocobal nayak) 0 3-23 00:00: 00 No 1000[facility] Vitamin B12 (Cyanocobal nayak) Vitamin B12 (Cyanocobal nayak) 0 3-23 00:00: 00 No 1000[facility] Vitamin B12 (Cyanocobal nayak) Vitamin B12 (Cyanocobal nayak) 0 3-23 00:00: 00 No 1000[facility] Vitamin B12 (Cyanocobal nayak) Vitamin B12 (Cyanocobal nayak) 0 3-23 00:00: 00 No 1000[facility] Vitamin B12 (Cyanocobal nayak) Vitamin B12 (Cyanocobal nayak) 0 3-23 00:00: 00 No 1000[facility] Vitamin B12 (Cyanocobal nayak) Vitamin B12 (Cyanocobal nayak) 0 3- 00:00: 00 No 1000[facility] Vitamin B12 (Cyanocobal nayak) Vitamin B12 (Cyanocobal nayak) 0 3 00:00: 00 No 1000[facility] Vitamin B12 (Cyanocobal nayak) Vitamin B12 (Cyanocobal nayak) 0 3 00:00: 00 No 1000[facility] Vitamin B12 (Cyanocobal nayak) Vitamin B12 (Cyanocobal nayak) 0 3 00:00: 00 No 1000[facility] Vitamin B12 (Cyanocobal nayak) Vitamin B12 (Cyanocobal nayak) 0 3- 00:00: 00 No 1000[facility] Vitamin B12 (Cyanocobal nayak) Vitamin B12 (Cyanocobal nayak) 0 3-23 00:00: 00 No 1000[facility] Vitamin B12 (Cyanocobal nayak) Vitamin B12 (Cyanocobal nayak) 0 3-23 00:00: 00 No 1000[facility] Vitamin B12 (Cyanocobal nayak) Vitamin B12 (Cyanocobal nayak) 0 3-23 00:00: 00 No 1000[facility] Vitamin B12 (Cyanocobal nayak) Vitamin B12 (Cyanocobal nayak) 0 3-23 00:00: 00 No 1000[facility] Vitamin B12 (Cyanocobal nayak) Vitamin B12 (Cyanocobal nayak) 0 3-23 00:00: 00 No [facility] Vitamin B12 (Cyanocobal nayak) Vitamin B12 (Cyanocobal nayak) 0 3 00:00: 00 No [facility] Vitamin B12 (Cyanocobal nayak) Vitamin B12 (Cyanocobal nayak) 0 3 00:00: 00 No [facility] Vitamin B12 (Cyanocobal nayak) Vitamin B12 (Cyanocobal nayak) 0 09-12 00:00: 00 No [facility] Vitamin B12 (Cyanocobal nayak) Vitamin B12 (Cyanocobal nayak) 0 09-12 00:00: 00 No [facility] Vitamin B12 (Cyanocobal nayak) Vitamin B12 (Cyanocobal nayak) 0 09-12 00:00: 00 No 1000[facility] Vitamin B12 (Cyanocobal nayak) Vitamin B12 (Cyanocobal nayak) 0 09-12 00:00: 00 No 1000[facility] Vitamin B12 (Cyanocobal nayak) Vitamin B12 (Cyanocobal nayak) 0 09-12 00:00: 00 No 1000[facility] Vitamin B12 (Cyanocobal nayak) Vitamin B12 (Cyanocobal nayak) 0 09-12 00:00: 00 No 1000[facility] Vitamin B12 (Cyanocobal nayak) Vitamin B12 (Cyanocobal nayak) 0 09-12 00:00: 00 No [facility] Vitamin B12 (Cyanocobal nayak) Vitamin B12 (Cyanocobal nayak) 0 3 00:00: 00 No [facility] Vitamin B12 (Cyanocobal nayak) Vitamin B12 (Cyanocobal nayak) 0 323 00:00: 00 No 1000[facility] Vitamin B12 (Cyanocobal nayak) Vitamin B12 (Cyanocobal nayak) 0 323 00:00: 00 No [facility] Vitamin B12 (Cyanocobal nayak) Vitamin B12 (Cyanocobal nayak) 0 3-23 00:00: 00 No [facility] Vitamin B12 (Cyanocobal nayak) Vitamin B12 (Cyanocobal nayak) 0 3-23 00:00: 00 No 1000[facility] Vitamin B12 (Cyanocobal nayak) Vitamin B12 (Cyanocobal nayak) 0 3-23 00:00: 00 No [facility] Vitamin B12 (Cyanocobal nayak) Vitamin B12 (Cyanocobal nayak) 0 3- 00:00: 00 No [facility] Vitamin B12 (Cyanocobal nayak) Vitamin B12 (Cyanocobal nayak) 0 3 00:00: 00 No 1000[facility] Vitamin B12 (Cyanocobal nayak) Vitamin B12 (Cyanocobal nayak) 0 3 00:00: 00 No [facility] Vitamin B12 (Cyanocobal nayak) Vitamin B12 (Cyanocobal nayak) 0 3 00:00: 00 No 1000[facility] Vitamin B12 (Cyanocobal nayak) Vitamin B12 (Cyanocobal nayak) 0 3- 00:00: 00 No 1000[facility] Vitamin B12 (Cyanocobal nayak) Vitamin B12 (Cyanocobal nayak) 0 3-23 00:00: 00 No 1000[facility] Vitamin B12 (Cyanocobal nayak) Vitamin B12 (Cyanocobal nayak) 0 3-23 00:00: 00 No 1000[facility] Vitamin B12 (Cyanocobal nayak) Vitamin B12 (Cyanocobal nayak) 0 3-23 00:00: 00 No 1000[facility] Vitamin B12 (Cyanocobal nayak) Vitamin B12 (Cyanocobal nayak) 0 3-23 00:00: 00 No 1000[facility] Vitamin B12 (Cyanocobal nayak) Vitamin B12 (Cyanocobal nayak) 0 3-23 00:00: 00 No [facility] Vitamin B12 (Cyanocobal nayak) Vitamin B12 (Cyanocobal nayak) 0 3 00:00: 00 No [facility] Vitamin B12 (Cyanocobal nayak) Vitamin B12 (Cyanocobal nayak) 0 3 00:00: 00 No [facility] Vitamin B12 (Cyanocobal nayak) Vitamin B12 (Cyanocobal nayak) 0 09-12 00:00: 00 No [facility] Vitamin B12 (Cyanocobal nayak) Vitamin B12 (Cyanocobal nayak) 0 09-12 00:00: 00 No [facility] Vitamin B12 (Cyanocobal nayak) Vitamin B12 (Cyanocobal nayak) 0 09-12 00:00: 00 No 1000[facility] Vitamin B12 (Cyanocobal nayak) Vitamin B12 (Cyanocobal nayak) 0 09-12 00:00: 00 No 1000[facility] Vitamin B12 (Cyanocobal nayak) Vitamin B12 (Cyanocobal nayak) 0 09-12 00:00: 00 No [facility] Vitamin B12 (Cyanocobal nayak) Vitamin B12 (Cyanocobal nayak) 0 09-12 00:00: 00 No 1000[facility] Vitamin B12 (Cyanocobal nayak) Vitamin B12 (Cyanocobal nayak) 0 09-12 00:00: 00 No [facility] Vitamin B12 (Cyanocobal nayak) Vitamin B12 (Cyanocobal nayak) 0 3 00:00: 00 No [facility] Vitamin B12 (Cyanocobal nayak) Vitamin B12 (Cyanocobal nayak) 0 323 00:00: 00 No 1000[facility] Vitamin B12 (Cyanocobal nayak) Vitamin B12 (Cyanocobal nayak) 0 323 00:00: 00 No [facility] Vitamin B12 (Cyanocobal nayak) Vitamin B12 (Cyanocobal nayak) 0 2-23 00:00: 00 No 1000[facility] Vitamin B12 (Cyanocobal nayak) Vitamin B12 (Cyanocobal nayak) 0 2-23 00:00: 00 No 1000[facility] Vitamin B12 (Cyanocobal nayak) Vitamin B12 (Cyanocobal nayak) 0 2-23 00:00: 00 No 1000[facility] Vitamin B12 (Cyanocobal nayak) Vitamin B12 (Cyanocobal nayak) 0 2-23 00:00: 00 No 1000[facility] Vitamin B12 (Cyanocobal nayak) Vitamin B12 (Cyanocobal nayak) 0 2- 00:00: 00 No 1000[facility] Vitamin B12 (Cyanocobal nayak) Vitamin B12 (Cyanocobal nayak) 0 2- 00:00: 00 No 1000[facility] Vitamin B12 (Cyanocobal nayak) Vitamin B12 (Cyanocobal nayak) 0 2- 00:00: 00 No [facility] Vitamin B12 (Cyanocobal nayak) Vitamin B12 (Cyanocobal nayak) 0 2-23 00:00: 00 No 1000[facility] Vitamin B12 (Cyanocobal nayak) Vitamin B12 (Cyanocobal nayak) 0 2-23 00:00: 00 No 1000[facility] Vitamin B12 (Cyanocobal nayak) Vitamin B12 (Cyanocobal nayak) 0 2-23 00:00: 00 No 1000[facility] Vitamin B12 (Cyanocobal nayak) Vitamin B12 (Cyanocobal nayak) 0 2-23 00:00: 00 No 1000[facility] Vitamin B12 (Cyanocobal nayak) Vitamin B12 (Cyanocobal nayak) 0 2-23 00:00: 00 No 1000[facility] Vitamin B12 (Cyanocobal nayak) Vitamin B12 (Cyanocobal nayak) 0 2-23 00:00: 00 No [facility] Vitamin B12 (Cyanocobal nayak) Vitamin B12 (Cyanocobal nayak) 0 - 00:00: 00 No [facility] Vitamin B12 (Cyanocobal nayak) Vitamin B12 (Cyanocobal nayak) 0 08-15 00:00: 00 No [facility] Vitamin B12 (Cyanocobal nayak) Vitamin B12 (Cyanocobal nayak) 0 08-15 00:00: 00 No [facility] Vitamin B12 (Cyanocobal nayak) Vitamin B12 (Cyanocobal nayak) 0 08-15 00:00: 00 No 1000[facility] Vitamin B12 (Cyanocobal nayak) Vitamin B12 (Cyanocobal nayak) 0 08-15 00:00: 00 No 1000[facility] Vitamin B12 (Cyanocobal nayak) Vitamin B12 (Cyanocobal nayak) 0 08-15 00:00: 00 No 1000[facility] Vitamin B12 (Cyanocobal nayak) Vitamin B12 (Cyanocobal nayak) 0 08-15 00:00: 00 No 1000[facility] Vitamin B12 (Cyanocobal nayak) Vitamin B12 (Cyanocobal nayak) 0 08-15 00:00: 00 No 1000[facility] Vitamin B12 (Cyanocobal nayak) Vitamin B12 (Cyanocobal nayak) 0 - 00:00: 00 No [facility] Vitamin B12 (Cyanocobal nayak) Vitamin B12 (Cyanocobal nayak) 0 - 00:00: 00 No [facility] Vitamin B12 (Cyanocobal nayak) Vitamin B12 (Cyanocobal nayak) 0 223 00:00: 00 No 1000[facility] Vitamin B12 (Cyanocobal nayak) Vitamin B12 (Cyanocobal nayak) 2020-0 2-23 00:00: 00 No [facility] Vitamin B12 (Cyanocobal nayak) Vitamin B12 (Cyanocobal nayak) 0 2-23 00:00: 00 No 1000[facility] Vitamin B12 (Cyanocobal nayak) Vitamin B12 (Cyanocobal nayak) 0 2-23 00:00: 00 No 1000[facility] Vitamin B12 (Cyanocobal nayak) Vitamin B12 (Cyanocobal nayak) 0 2-23 00:00: 00 No 1000[facility] Vitamin B12 (Cyanocobal nayak) Vitamin B12 (Cyanocobal nayak) 0 2-23 00:00: 00 No 1000[facility] Vitamin B12 (Cyanocobal nayak) Vitamin B12 (Cyanocobal nayak) 0 2- 00:00: 00 No 1000[facility] Vitamin B12 (Cyanocobal nayak) Vitamin B12 (Cyanocobal nayak) 0 2- 00:00: 00 No 1000[facility] Vitamin B12 (Cyanocobal nayak) Vitamin B12 (Cyanocobal nayak) 0 2- 00:00: 00 No 1000[facility] Vitamin B12 (Cyanocobal nayak) Vitamin B12 (Cyanocobal nayak) 0 2-23 00:00: 00 No [facility] Vitamin B12 (Cyanocobal nayak) Vitamin B12 (Cyanocobal nayak) 0 2-23 00:00: 00 No 1000[facility] Vitamin B12 (Cyanocobal nayak) Vitamin B12 (Cyanocobal nayak) 0 2-23 00:00: 00 No [facility] Vitamin B12 (Cyanocobal nayak) Vitamin B12 (Cyanocobal nayak) 0 2-23 00:00: 00 No [facility] Vitamin B12 (Cyanocobal nayak) Vitamin B12 (Cyanocobal nayak) 0 2-23 00:00: 00 No 1000[facility] Vitamin B12 (Cyanocobal nayak) Vitamin B12 (Cyanocobal nayak) 0 2-23 00:00: 00 No [facility] Vitamin B12 (Cyanocobal nayak) Vitamin B12 (Cyanocobal nayak) 0 - 00:00: 00 No [facility] Vitamin B12 (Cyanocobal nayak) Vitamin B12 (Cyanocobal nayak) 0 08-15 00:00: 00 No [facility] Vitamin B12 (Cyanocobal nayak) Vitamin B12 (Cyanocobal nayak) 0 08-15 00:00: 00 No [facility] Vitamin B12 (Cyanocobal nayak) Vitamin B12 (Cyanocobal nayak) 0 08-15 00:00: 00 No 1000[facility] Vitamin B12 (Cyanocobal nayak) Vitamin B12 (Cyanocobal nayak) 0 08-15 00:00: 00 No 1000[facility] Vitamin B12 (Cyanocobal nayak) Vitamin B12 (Cyanocobal nayak) 0 08-15 00:00: 00 No [facility] Vitamin B12 (Cyanocobal nayak) Vitamin B12 (Cyanocobal nayak) 0 08-15 00:00: 00 No 1000[facility] Vitamin B12 (Cyanocobal nayak) Vitamin B12 (Cyanocobal nayak) 0 08-15 00:00: 00 No 1000[facility] Vitamin B12 (Cyanocobal nayak) Vitamin B12 (Cyanocobal nayak) 0 - 00:00: 00 No [facility] Vitamin B12 (Cyanocobal nayak) Vitamin B12 (Cyanocobal nayak) 0 - 00:00: 00 No [facility] Vitamin B12 (Cyanocobal nayak) Vitamin B12 (Cyanocobal nayak) 0 223 00:00: 00 No 1000[facility] Vitamin B12 (Cyanocobal nayak) Vitamin B12 (Cyanocobal nayak) 2020-0 2-23 00:00: 00 No [facility] Vitamin B12 (Cyanocobal nayak) Vitamin B12 (Cyanocobal nayak) 2020-0 2-23 00:00: 00 No 1000[facility] Vitamin B12 (Cyanocobal nayak) Vitamin B12 (Cyanocobal nayak) 2020-0 2-23 00:00: 00 No 1000[facility] Vitamin B12 (Cyanocobal nayak) Vitamin B12 (Cyanocobal nayak) 2020-0 2-23 00:00: 00 No 1000[facility] Vitamin B12 (Cyanocobal nayak) Vitamin B12 (Cyanocobal nayak) 2020-0 2-23 00:00: 00 No 1000[facility] Vitamin B12 (Cyanocobal nayak) Vitamin B12 (Cyanocobal nayak) 0 2-23 00:00: 00 No 1000[facility] Vitamin B12 (Cyanocobal nayak) Vitamin B12 (Cyanocobal nayak) 2020-0 2-23 00:00: 00 No 1000[facility] Vitamin B12 (Cyanocobal nayak) Vitamin B12 (Cyanocobal nayak) 2020-0 2-08 00:00: 00 No 1000[facility] Vitamin B12 (Cyanocobal nayak) Vitamin B12 (Cyanocobal nayak) 2020-0 2-08 00:00: 00 No 1000[facility] Vitamin B12 (Cyanocobal nayak) Vitamin B12 (Cyanocobal nayak) 2020-0 2-08 00:00: 00 No [facility] Vitamin B12 (Cyanocobal nayak) Vitamin B12 (Cyanocobal nayak) 2020-0 2-08 00:00: 00 No 1000[facility] Vitamin B12 (Cyanocobal nayak) Vitamin B12 (Cyanocobal nayak) 2020-0 2-08 00:00: 00 No 1000[facility] Vitamin B12 (Cyanocobal nayak) Vitamin B12 (Cyanocobal nayak) 2020-0 2-08 00:00: 00 No [facility] Vitamin B12 (Cyanocobal nayak) Vitamin B12 (Cyanocobal nayak) 2020-0 2-08 00:00: 00 No [facility] Vitamin B12 (Cyanocobal nayak) Vitamin B12 (Cyanocobal nayak) 0 2-08 00:00: 00 No [facility] Vitamin B12 (Cyanocobal nayak) Vitamin B12 (Cyanocobal nayak) 2020-0 2-08 00:00: 00 No [facility] Vitamin B12 (Cyanocobal nayak) Vitamin B12 (Cyanocobal nayak) 0 2-08 00:00: 00 No [facility] Vitamin B12 (Cyanocobal nayak) Vitamin B12 (Cyanocobal nayak) 0 2-08 00:00: 00 No [facility] Vitamin B12 (Cyanocobal nayak) Vitamin B12 (Cyanocobal nayak) 0 2-08 00:00: 00 No [facility] Vitamin B12 (Cyanocobal nayak) Vitamin B12 (Cyanocobal nayak) 0 2-08 00:00: 00 No [facility] Vitamin B12 (Cyanocobal nayak) Vitamin B12 (Cyanocobal nayak) 0 2-08 00:00: 00 No [facility] Vitamin B12 (Cyanocobal nayak) Vitamin B12 (Cyanocobal nayak) 0 2-08 00:00: 00 No [facility] Vitamin B12 (Cyanocobal nayak) Vitamin B12 (Cyanocobal nayak) 2020-0 2-08 00:00: 00 No [facility] Vitamin B12 (Cyanocobal nayak) Vitamin B12 (Cyanocobal nayak) 2020-0 2-08 00:00: 00 No [facility] Vitamin B12 (Cyanocobal nayak) Vitamin B12 (Cyanocobal nayak) 2020-0 2-08 00:00: 00 No [facility] Vitamin B12 (Cyanocobal nayak) Vitamin B12 (Cyanocobal nayak) 2020-0 2-08 00:00: 00 No [facility] Vitamin B12 (Cyanocobal nayak) Vitamin B12 (Cyanocobal nayak) 2020-0 2-08 00:00: 00 No [facility] Vitamin B12 (Cyanocobal nayak) Vitamin B12 (Cyanocobal nayak) 2020-0 2-08 00:00: 00 No 1000[facility] Vitamin B12 (Cyanocobal nayak) Vitamin B12 (Cyanocobal nayak) 2020-0 2-08 00:00: 00 No 1000[facility] Vitamin B12 (Cyanocobal nayak) Vitamin B12 (Cyanocobal nayak) 2020-0 2-08 00:00: 00 No [facility] Vitamin B12 (Cyanocobal nayak) Vitamin B12 (Cyanocobal nayak) 2020-0 2-08 00:00: 00 No 1000[facility] Vitamin B12 (Cyanocobal nayak) Vitamin B12 (Cyanocobal nayak) 2020-0 2-08 00:00: 00 No [facility] Vitamin B12 (Cyanocobal nayak) Vitamin B12 (Cyanocobal nayak) 2020-0 2-08 00:00: 00 No [facility] Vitamin B12 (Cyanocobal nayak) Vitamin B12 (Cyanocobal nayak) 2020-0 2-08 00:00: 00 No [facility] Vitamin B12 (Cyanocobal nayak) Vitamin B12 (Cyanocobal nayak) 2020-0 2-08 00:00: 00 No 1000[facility] Vitamin B12 (Cyanocobal nayak) Vitamin B12 (Cyanocobal nayak) 2020-0 2-08 00:00: 00 No [facility] Vitamin B12 (Cyanocobal nayak) Vitamin B12 (Cyanocobal nayak) 2020-0 2-08 00:00: 00 No [facility] Vitamin B12 (Cyanocobal nayak) Vitamin B12 (Cyanocobal nayak) 2020-0 2-08 00:00: 00 No 1000[facility] Vitamin B12 (Cyanocobal nayak) Vitamin B12 (Cyanocobal nayak) 2020-0 2-08 00:00: 00 No [facility] Vitamin B12 (Cyanocobal nayak) Vitamin B12 (Cyanocobal nayak) 0 2-08 00:00: 00 No [facility] Vitamin B12 (Cyanocobal nayak) Vitamin B12 (Cyanocobal nayak) 2020-0 2-08 00:00: 00 No [facility] Vitamin B12 (Cyanocobal nayak) Vitamin B12 (Cyanocobal nayak) 0 2-08 00:00: 00 No [facility] Vitamin B12 (Cyanocobal nayak) Vitamin B12 (Cyanocobal nayak) 0 2-08 00:00: 00 No [facility] Vitamin B12 (Cyanocobal nayak) Vitamin B12 (Cyanocobal nayak) 0 2-08 00:00: 00 No 1000[facility] Vitamin B12 (Cyanocobal nayak) Vitamin B12 (Cyanocobal nayak) 0 2-08 00:00: 00 No [facility] Vitamin B12 (Cyanocobal nayak) Vitamin B12 (Cyanocobal nayak) 0 2-08 00:00: 00 No [facility] Vitamin B12 (Cyanocobal nayak) Vitamin B12 (Cyanocobal nayak) 0 2-08 00:00: 00 No [facility] Vitamin B12 (Cyanocobal nayak) Vitamin B12 (Cyanocobal nayak) 2020-0 2-08 00:00: 00 No [facility] Vitamin B12 (Cyanocobal nayak) Vitamin B12 (Cyanocobal nayak) 2020-0 2-08 00:00: 00 No [facility] Vitamin B12 (Cyanocobal nayak) Vitamin B12 (Cyanocobal nayak) 2020-0 2-08 00:00: 00 No [facility] Vitamin B12 (Cyanocobal nayak) Vitamin B12 (Cyanocobal nayak) 2020-0 2-08 00:00: 00 No [facility] Vitamin B12 (Cyanocobal nayak) Vitamin B12 (Cyanocobal nayak) 2020-0 2-08 00:00: 00 No [facility] Vitamin B12 (Cyanocobal nayak) Vitamin B12 (Cyanocobal nayak) 2020-0 2-08 00:00: 00 No 1000[facility] Vitamin B12 (Cyanocobal nayak) Vitamin B12 (Cyanocobal nayak) 2020-0 2-08 00:00: 00 No 1000[facility] Vitamin B12 (Cyanocobal nayak) Vitamin B12 (Cyanocobal nayak) 2020-0 2-08 00:00: 00 No 1000[facility] Vitamin B12 (Cyanocobal nayak) Vitamin B12 (Cyanocobal nayak) 2020-0 2-08 00:00: 00 No 1000[facility] Vitamin B12 (Cyanocobal nayak) Vitamin B12 (Cyanocobal nayak) 2020-0 2-08 00:00: 00 No [facility] Vitamin B12 (Cyanocobal nayak) Vitamin B12 (Cyanocobal nayak) 2020-0 2-08 00:00: 00 No 1000[facility] Vitamin B12 (Cyanocobal nayak) Vitamin B12 (Cyanocobal nayak) 2020-0 2-08 00:00: 00 No 1000[facility] Vitamin B12 (Cyanocobal nayak) Vitamin B12 (Cyanocobal nayak) 2020-0 2-08 00:00: 00 No 1000[facility] Vitamin B12 (Cyanocobal nayak) Vitamin B12 (Cyanocobal nayak) 2020-0 2-08 00:00: 00 No 1000[facility] Vitamin B12 (Cyanocobal nayak) Vitamin B12 (Cyanocobal nayak) 2020-0 2-08 00:00: 00 No 1000[facility] Vitamin B12 (Cyanocobal nayak) Vitamin B12 (Cyanocobal nayak) 2020-0 2-08 00:00: 00 No 1000[facility] Vitamin B12 (Cyanocobal nayak) Vitamin B12 (Cyanocobal nayak) 2020-0 1-25 00:00: 00 No [facility] Vitamin B12 (Cyanocobal nayak) Vitamin B12 (Cyanocobal nayak) 0 07-17 00:00: 00 No [facility] Vitamin B12 (Cyanocobal nayak) Vitamin B12 (Cyanocobal nayak) 0 07-17 00:00: 00 No [facility] Vitamin B12 (Cyanocobal nayak) Vitamin B12 (Cyanocobal nayak) 0 07-17 00:00: 00 No [facility] Vitamin B12 (Cyanocobal nayak) Vitamin B12 (Cyanocobal nayak) 0 07-17 00:00: 00 No [facility] Vitamin B12 (Cyanocobal nayak) Vitamin B12 (Cyanocobal nayak) 0 07-17 00:00: 00 No [facility] Vitamin B12 (Cyanocobal nayak) Vitamin B12 (Cyanocobal nayak) 07-17 00:00: 00 No [facility] Vitamin B12 (Cyanocobal nayak) Vitamin B12 (Cyanocobal nayak) 07-17 00:00: 00 No 1000[facility] Vitamin B12 (Cyanocobal nayak) Vitamin B12 (Cyanocobal nayak) 0 07-17 00:00: 00 No [facility] Vitamin B12 (Cyanocobal nayak) Vitamin B12 (Cyanocobal nayak) 0 07-17 00:00: 00 No [facility] Vitamin B12 (Cyanocobal nayak) Vitamin B12 (Cyanocobal nayak) 0 07-17 00:00: 00 No [facility] Vitamin B12 (Cyanocobal nayak) Vitamin B12 (Cyanocobal nayak) 0 07-17 00:00: 00 No [facility] Vitamin B12 (Cyanocobal nayak) Vitamin B12 (Cyanocobal nayak) 0 07-17 00:00: 00 No [facility] Vitamin B12 (Cyanocobal nayak) Vitamin B12 (Cyanocobal nayak) 0 -25 00:00: 00 No [facility] Vitamin B12 (Cyanocobal nayak) Vitamin B12 (Cyanocobal nayak) 0 07-17 00:00: 00 No 1000[facility] Vitamin B12 (Cyanocobal nayak) Vitamin B12 (Cyanocobal nayak) 0 07-17 00:00: 00 No 1000[facility] Vitamin B12 (Cyanocobal nayak) Vitamin B12 (Cyanocobal nayak) 0 07-17 00:00: 00 No 1000[facility] Vitamin B12 (Cyanocobal nayak) Vitamin B12 (Cyanocobal nayak) 0 07-17 00:00: 00 No 1000[facility] Vitamin B12 (Cyanocobal nayak) Vitamin B12 (Cyanocobal nayak) 0 07-17 00:00: 00 No 1000[facility] Vitamin B12 (Cyanocobal nayak) Vitamin B12 (Cyanocobal nayak) 0 07-17 00:00: 00 No [facility] Vitamin B12 (Cyanocobal nayak) Vitamin B12 (Cyanocobal nayak) 0 07-17 00:00: 00 No 1000[facility] Vitamin B12 (Cyanocobal nayak) Vitamin B12 (Cyanocobal nayak) 0 07-17 00:00: 00 No 1000[facility] Vitamin B12 (Cyanocobal nayak) Vitamin B12 (Cyanocobal nayak) 0 25 00:00: 00 No 1000[facility] Vitamin B12 (Cyanocobal nayak) Vitamin B12 (Cyanocobal nayak) 0 -25 00:00: 00 No 1000[facility] Vitamin B12 (Cyanocobal nayak) Vitamin B12 (Cyanocobal nayak) 0 -25 00:00: 00 No 1000[facility] Vitamin B12 (Cyanocobal nayak) Vitamin B12 (Cyanocobal nayak) 2021-0 1-25 00:00: 00 No [facility] Vitamin B12 (Cyanocobal nayak) Vitamin B12 (Cyanocobal nayka) 0 07-17 00:00: 00 No [facility] Vitamin B12 (Cyanocobal nayak) Vitamin B12 (Cyanocobal nayak) 0 07-17 00:00: 00 No [facility] Vitamin B12 (Cyanocobal nayak) Vitamin B12 (Cyanocobal nayak) 0 07-17 00:00: 00 No [facility] Vitamin B12 (Cyanocobal nayak) Vitamin B12 (Cyanocobal nayak) 0 07-17 00:00: 00 No [facility] Vitamin B12 (Cyanocobal nayak) Vitamin B12 (Cyanocobal nayak) 0 07-17 00:00: 00 No 1000[facility] Vitamin B12 (Cyanocobal nayak) Vitamin B12 (Cyanocobal nayak) 07-17 00:00: 00 No [facility] Vitamin B12 (Cyanocobal nayak) Vitamin B12 (Cyanocobal nayak) 07-17 00:00: 00 No 1000[facility] Vitamin B12 (Cyanocobal nayak) Vitamin B12 (Cyanocobal nayak) 0 07-17 00:00: 00 No [facility] Vitamin B12 (Cyanocobal nayak) Vitamin B12 (Cyanocobal nayak) 0 07-17 00:00: 00 No [facility] Vitamin B12 (Cyanocobal nayak) Vitamin B12 (Cyanocobal nayak) 0 07-17 00:00: 00 No [facility] Vitamin B12 (Cyanocobal nayak) Vitamin B12 (Cyanocobal nayak) 0 07-17 00:00: 00 No [facility] Vitamin B12 (Cyanocobal nayak) Vitamin B12 (Cyanocobal nayak) 0 07-17 00:00: 00 No [facility] Vitamin B12 (Cyanocobal nayak) Vitamin B12 (Cyanocobal nayak) 0 -25 00:00: 00 No [facility] Vitamin B12 (Cyanocobal nayak) Vitamin B12 (Cyanocobal nayak) 0 07-17 00:00: 00 No 1000[facility] Vitamin B12 (Cyanocobal nayak) Vitamin B12 (Cyanocobal nayak) 0 07-17 00:00: 00 No 1000[facility] Vitamin B12 (Cyanocobal nayak) Vitamin B12 (Cyanocobal nayak) 0 07-17 00:00: 00 No 1000[facility] Vitamin B12 (Cyanocobal nayak) Vitamin B12 (Cyanocobal nayak) 0 07-17 00:00: 00 No 1000[facility] Vitamin B12 (Cyanocobal nayak) Vitamin B12 (Cyanocobal nayak) 0 07-17 00:00: 00 No 1000[facility] Vitamin B12 (Cyanocobal nayak) Vitamin B12 (Cyanocobal nayak) 0 07-17 00:00: 00 No 1000[facility] Vitamin B12 (Cyanocobal nayak) Vitamin B12 (Cyanocobal nayak) 0 07-17 00:00: 00 No 1000[facility] Vitamin B12 (Cyanocobal nayak) Vitamin B12 (Cyanocobal nayak) 0 07-17 00:00: 00 No 1000[facility] Vitamin B12 (Cyanocobal nayak) Vitamin B12 (Cyanocobal nayak) 0 25 00:00: 00 No 1000[facility] Vitamin B12 (Cyanocobal nayak) Vitamin B12 (Cyanocobal nayak) 0 -25 00:00: 00 No 1000[facility] Vitamin B12 (Cyanocobal nayak) Vitamin B12 (Cyanocobal nayak) 0 -25 00:00: 00 No 1000[facility] Vitamin B12 (Cyanocobal nayak) Vitamin B12 (Cyanocobal nayak) 2021-0 1-25 00:00: 00 No [facility] Vitamin B12 (Cyanocobal nayak) Vitamin B12 (Cyanocobal nayak) 07-17 00:00: 00 No [facility] Vitamin B12 (Cyanocobal nayak) Vitamin B12 (Cyanocobal nayak) 0 07-17 00:00: 00 No 1000[facility] Vitamin B12 (Cyanocobal nayak) Vitamin B12 (Cyanocobal nayak) 07-17 00:00: 00 No 1000[facility] Vitamin B12 (Cyanocobal nayak) Vitamin B12 (Cyanocobal nayak) 07-17 00:00: 00 No 1000[facility] Vitamin B12 (Cyanocobal nayak) Vitamin B12 (Cyanocobal nayak) 07-17 00:00: 00 No 1000[facility] Vitamin B12 (Cyanocobal nayak) Vitamin B12 (Cyanocobal nayak) 2019-06 00:00: 00 No [facility] Vitamin B12 (Cyanocobal nayak) Vitamin B12 (Cyanocobal nayak) 2019-06 00:00: 00 No 1000[facility] Vitamin B12 (Cyanocobal nayak) Vitamin B12 (Cyanocobal nayak) 2019-06 00:00: 00 No 1000[facility] Vitamin B12 (Cyanocobal nayak) Vitamin B12 (Cyanocobal nayak) 2019-06 00:00: 00 No 1000[facility] Vitamin B12 (Cyanocobal nayak) Vitamin B12 (Cyanocobal nayak) 2019-06 00:00: 00 No 1000[facility] Vitamin B12 (Cyanocobal nayak) Vitamin B12 (Cyanocobal nayak) 2019-06 00:00: 00 No 1000[facility] Vitamin B12 (Cyanocobal nayak) Vitamin B12 (Cyanocobal nayak) 2019-06 00:00: 00 No 1000[facility] Vitamin B12 (Cyanocobal nayak) Vitamin B12 (Cyanocobal nayak) 2019-06 00:00: 00 No 1000[facility] Vitamin B12 (Cyanocobal nayak) Vitamin B12 (Cyanocobal nayak) 2019-06 00:00: 00 No 1000[facility] Vitamin B12 (Cyanocobal nayak) Vitamin B12 (Cyanocobal nayak) 2019-06 00:00: 00 No 1000[facility] Vitamin B12 (Cyanocobal nayak) Vitamin B12 (Cyanocobal nayak) 2019-06 00:00: 00 No 1000[facility] Vitamin B12 (Cyanocobal nayak) Vitamin B12 (Cyanocobal nayak) 2019-06 00:00: 00 No 1000[facility] Vitamin B12 (Cyanocobal nayak) Vitamin B12 (Cyanocobal nayak) 2019-06 00:00: 00 No 1000[facility] Vitamin B12 (Cyanocobal nayak) Vitamin B12 (Cyanocobal nayak) 2019-06 00:00: 00 No 1000[facility] Vitamin B12 (Cyanocobal nayak) Vitamin B12 (Cyanocobal nayak) 2019-06 00:00: 00 No 1000[facility] Vitamin B12 (Cyanocobal nayak) Vitamin B12 (Cyanocobal nayak) 2019-06 00:00: 00 No 1000[facility] Vitamin B12 (Cyanocobal nayak) Vitamin B12 (Cyanocobal nayak) 2019-06 00:00: 00 No 1000[facility] Vitamin B12 (Cyanocobal nayak) Vitamin B12 (Cyanocobal nayak) 2019-06 00:00: 00 No 1000[facility] Vitamin B12 (Cyanocobal nayak) Vitamin B12 (Cyanocobal nayak) 2019-06 00:00: 00 No 1000[facility] Vitamin B12 (Cyanocobal nayak) Vitamin B12 (Cyanocobal nayak) 2019-06 00:00: 00 No 1000[facility] Vitamin B12 (Cyanocobal nayak) Vitamin B12 (Cyanocobal nayak) 2019-06 00:00: 00 No 1000[facility] Vitamin B12 (Cyanocobal nayak) Vitamin B12 (Cyanocobal nayak) 2019-06 00:00: 00 No 1000[facility] Vitamin B12 (Cyanocobal nayak) Vitamin B12 (Cyanocobal nayak) 2019-06 00:00: 00 No 1000[facility] Vitamin B12 (Cyanocobal nayak) Vitamin B12 (Cyanocobal nayak) 2019-06 00:00: 00 No 1000[facility] Vitamin B12 (Cyanocobal nayak) Vitamin B12 (Cyanocobal nayak) 2019-06 00:00: 00 No 1000[facility] Vitamin B12 (Cyanocobal nayak) Vitamin B12 (Cyanocobal nayak) 2019-06 00:00: 00 No 1000[facility] Vitamin B12 (Cyanocobal nayak) Vitamin B12 (Cyanocobal nayak) 2019-06 00:00: 00 No 1000[facility] Vitamin B12 (Cyanocobal nayak) Vitamin B12 (Cyanocobal nayak) 2019-06 00:00: 00 No 1000[facility] Vitamin B12 (Cyanocobal nayak) Vitamin B12 (Cyanocobal nayak) 2019-06 00:00: 00 No 1000[facility] Vitamin B12 (Cyanocobal nayak) Vitamin B12 (Cyanocobal nayak) 2019-06 00:00: 00 No 1000[facility] Vitamin B12 (Cyanocobal nayak) Vitamin B12 (Cyanocobal nayak) 2019-06 00:00: 00 No 1000[facility] Vitamin B12 (Cyanocobal nayak) Vitamin B12 (Cyanocobal nayak) 2019-06 00:00: 00 No 1000[facility] Vitamin B12 (Cyanocobal nayak) Vitamin B12 (Cyanocobal nayak) 2019-06 00:00: 00 No 1000[facility] Vitamin B12 (Cyanocobal nayak) Vitamin B12 (Cyanocobal nayak) 2019-06 00:00: 00 No 1000[facility] Vitamin B12 (Cyanocobal nayak) Vitamin B12 (Cyanocobal nayak) 2019-06 00:00: 00 No 1000[facility] Vitamin B12 (Cyanocobal nayak) Vitamin B12 (Cyanocobal nayak) 2019-06 00:00: 00 No 1000[facility] Vitamin B12 (Cyanocobal nayak) Vitamin B12 (Cyanocobal nayak) 2019-06 00:00: 00 No 1000[facility] Vitamin B12 (Cyanocobal nayak) Vitamin B12 (Cyanocobal nayak) 2019-06 00:00: 00 No 1000[facility] Vitamin B12 (Cyanocobal nayak) Vitamin B12 (Cyanocobal nayak) 2019-06 00:00: 00 No 1000[facility] Vitamin B12 (Cyanocobal nayak) Vitamin B12 (Cyanocobal nayak) 2019-06 00:00: 00 No 1000[facility] Vitamin B12 (Cyanocobal nayak) Vitamin B12 (Cyanocobal nayak) 2019-06 00:00: 00 No 1000[facility] Vitamin B12 (Cyanocobal nayak) Vitamin B12 (Cyanocobal nayak) 2019-06 00:00: 00 No 1000[facility] Vitamin B12 (Cyanocobal nayak) Vitamin B12 (Cyanocobal nayak) 2019-06 00:00: 00 No 1000[facility] Vitamin B12 (Cyanocobal nayak) Vitamin B12 (Cyanocobal nayak) 2019-06 00:00: 00 No 1000[facility] Vitamin B12 (Cyanocobal nayak) Vitamin B12 (Cyanocobal nayak) 2019-06 00:00: 00 No 1000[facility] Vitamin B12 (Cyanocobal nayak) Vitamin B12 (Cyanocobal nayak) 2019-06 00:00: 00 No [facility] Vitamin B12 (Cyanocobal nayak) Vitamin B12 (Cyanocobal nayak) 2019-06 00:00: 00 No 1000[facility] Vitamin B12 (Cyanocobal nayak) Vitamin B12 (Cyanocobal nayak) 2019-06 00:00: 00 No 1000[facility] Vitamin B12 (Cyanocobal nayak) Vitamin B12 (Cyanocobal nayak) 2019-06 00:00: 00 No 1000[facility] Vitamin B12 (Cyanocobal nayak) Vitamin B12 (Cyanocobal nayak) 2019-06 00:00: 00 No [facility] Vitamin B12 (Cyanocobal nayak) Vitamin B12 (Cyanocobal nayak) 2019-06 00:00: 00 No 1000ug [facility] Vitamin B12 (Cyanocobal nayak) Vitamin B12 (Cyanocobal nayak) 2019-06 00:00: 00 No 1000[facility] Vitamin B12 (Cyanocobal nayak) Vitamin B12 (Cyanocobal nayak) 2019-06 00:00: 00 No 1000[facility] Vitamin B12 (Cyanocobal nayak) Vitamin B12 (Cyanocobal nayak) 2019-06 00:00: 00 No 1000[facility] Vitamin B12 (Cyanocobal nayak) Vitamin B12 (Cyanocobal nayak) 2019-06 00:00: 00 No 1000[facility] Vitamin B12 (Cyanocobal nayak) Vitamin B12 (Cyanocobal nayak) 2019-06 00:00: 00 No 1000[facility] Vitamin B12 (Cyanocobal nayak) Vitamin B12 (Cyanocobal nayak) 2019-06 00:00: 00 No 1000[facility] Vitamin B12 (Cyanocobal nayak) Vitamin B12 (Cyanocobal nayak) 2019-06 00:00: 00 No 1000[facility] Vitamin B12 (Cyanocobal nayak) Vitamin B12 (Cyanocobal nayak) 2019-06 00:00: 00 No 1000[facility] Vitamin B12 (Cyanocobal nayak) Vitamin B12 (Cyanocobal nayak) 2019-06 00:00: 00 No 1000[facility] Vitamin B12 (Cyanocobal nayak) Vitamin B12 (Cyanocobal nayak) 2019-06 00:00: 00 No 1000[facility] Vitamin B12 (Cyanocobal nayak) Vitamin B12 (Cyanocobal nayak) 2019-06 00:00: 00 No 1000[facility] Vitamin B12 (Cyanocobal nayak) Vitamin B12 (Cyanocobal nayak) 2019-06 00:00: 00 No 1000[facility] Vitamin B12 (Cyanocobal nayak) Vitamin B12 (Cyanocobal nayak) 2019-06 00:00: 00 No 1000[facility] Vitamin B12 (Cyanocobal nayak) Vitamin B12 (Cyanocobal nayak) 2019-06 00:00: 00 No 1000[facility] Vitamin B12 (Cyanocobal nayak) Vitamin B12 (Cyanocobal nayak) 2019-06 00:00: 00 No 1000[facility] Vitamin B12 (Cyanocobal nayak) Vitamin B12 (Cyanocobal nayak) 2019-06 00:00: 00 No 1000[facility] Vitamin B12 (Cyanocobal nayak) Vitamin B12 (Cyanocobal nayak) 2019-06 00:00: 00 No 1000[facility] Vitamin B12 (Cyanocobal nayak) Vitamin B12 (Cyanocobal nayak) 2019-06 00:00: 00 No 1000[facility] Vitamin B12 (Cyanocobal nayak) Vitamin B12 (Cyanocobal nayak) 2019-06 00:00: 00 No 1000[facility] Vitamin B12 (Cyanocobal nayak) Vitamin B12 (Cyanocobal nayak) 2019-06 00:00: 00 No 1000[facility] Vitamin B12 (Cyanocobal nayak) Vitamin B12 (Cyanocobal nayak) 2019-06 00:00: 00 No 1000[facility] Vitamin B12 (Cyanocobal nayak) Vitamin B12 (Cyanocobal nayak) 2019-06 00:00: 00 No 1000[facility] Vitamin B12 (Cyanocobal nayak) Vitamin B12 (Cyanocobal nayak) 2019-06 00:00: 00 No 1000[facility] Vitamin B12 (Cyanocobal nayak) Vitamin B12 (Cyanocobal nayak) 2019-06 00:00: 00 No 1000[facility] Vitamin B12 (Cyanocobal nayak) Vitamin B12 (Cyanocobal nayak) 2019-06 00:00: 00 No 1000[facility] Vitamin B12 (Cyanocobal nayak) Vitamin B12 (Cyanocobal nayak) 2019-06 00:00: 00 No 1000[facility] Vitamin B12 (Cyanocobal nayak) Vitamin B12 (Cyanocobal nayak) 2019-06 00:00: 00 No 1000[facility] Vitamin B12 (Cyanocobal nayak) Vitamin B12 (Cyanocobal nayak) 2019-06 00:00: 00 No 1000[facility] Vitamin B12 (Cyanocobal nayak) Vitamin B12 (Cyanocobal nayak) 2019-06 00:00: 00 No 1000[facility] Vitamin B12 (Cyanocobal nayak) Vitamin B12 (Cyanocobal nayak) 2019-06 00:00: 00 No 1000[facility] Vitamin B12 (Cyanocobal nayak) Vitamin B12 (Cyanocobal nayak) 2019-06 00:00: 00 No 1000[facility] Vitamin B12 (Cyanocobal nayak) Vitamin B12 (Cyanocobal nayak) 2019-06 00:00: 00 No 1000[facility] Vitamin B12 (Cyanocobal nayak) Vitamin B12 (Cyanocobal nayak) 2019-06 00:00: 00 No 1000[facility] Vitamin B12 (Cyanocobal nayak) Vitamin B12 (Cyanocobal nayak) 2019-06 00:00: 00 No 1000[facility] Vitamin B12 (Cyanocobal nayak) Vitamin B12 (Cyanocobal nayak) 2019-06 00:00: 00 No 1000[facility] Vitamin B12 (Cyanocobal nayak) Vitamin B12 (Cyanocobal nayak) 2019-06 00:00: 00 No 1000[facility] Vitamin B12 (Cyanocobal nayak) Vitamin B12 (Cyanocobal nayak) 2019-06 00:00: 00 No 1000[facility] Vitamin B12 (Cyanocobal nayak) Vitamin B12 (Cyanocobal nayak) 2019-06 00:00: 00 No 1000[facility] Vitamin B12 (Cyanocobal nayak) Vitamin B12 (Cyanocobal nayak) 2019-06 00:00: 00 No 1000[facility] Vitamin B12 (Cyanocobal nayak) Vitamin B12 (Cyanocobal nayak) 2019-06 00:00: 00 No 1000[facility] Vitamin B12 (Cyanocobal nayak) Vitamin B12 (Cyanocobal nayak) 2019-06 00:00: 00 No 1000[facility] Vitamin B12 (Cyanocobal nayak) Vitamin B12 (Cyanocobal nayak) 2019-06 00:00: 00 No 1000[facility] Vitamin B12 (Cyanocobal nayak) Vitamin B12 (Cyanocobal nayak) 2019-06 00:00: 00 No 1000[facility] Vitamin B12 (Cyanocobal nayak) Vitamin B12 (Cyanocobal nayak) 2019-06 00:00: 00 No [facility] Vitamin B12 (Cyanocobal nayak) Vitamin B12 (Cyanocobal nayak) 2019-06 00:00: 00 No 1000[facility] Vitamin B12 (Cyanocobal nayak) Vitamin B12 (Cyanocobal nayak) 2019-06 00:00: 00 No 1000[facility] Vitamin B12 (Cyanocobal nayak) Vitamin B12 (Cyanocobal nayak) 2019-06 00:00: 00 No [facility] Vitamin B12 (Cyanocobal nayak) Vitamin B12 (Cyanocobal nayak) 2019-06 00:00: 00 No 1000[facility] Vitamin B12 (Cyanocobal nayak) Vitamin B12 (Cyanocobal nayak) 2019-06 00:00: 00 No 1000[facility] Vitamin B12 (Cyanocobal nayak) Vitamin B12 (Cyanocobal nayak) 2019-06 00:00: 00 No 1000[facility] Vitamin B12 (Cyanocobal nayak) Vitamin B12 (Cyanocobal nayak) 2019-06 00:00: 00 No 1000[facility] Vitamin B12 (Cyanocobal nayak) Vitamin B12 (Cyanocobal nayak) 2019-06 00:00: 00 No [facility] Vitamin B12 (Cyanocobal nayak) Vitamin B12 (Cyanocobal nayak) 2019-06 00:00: 00 No [facility] Vitamin B12 (Cyanocobal nayak) Vitamin B12 (Cyanocobal nayak) 2019-06 00:00: 00 No 1000[facility] Vitamin B12 (Cyanocobal nayak) Vitamin B12 (Cyanocobal nayak) 2019-06 00:00: 00 No [facility] Vitamin B12 (Cyanocobal nayak) Vitamin B12 (Cyanocobal nayak) 2019-06 00:00: 00 No 1000[facility] Vitamin B12 (Cyanocobal nayak) Vitamin B12 (Cyanocobal nayak) 2019-06 00:00: 00 No [facility] Vitamin B12 (Cyanocobal nayak) Vitamin B12 (Cyanocobal nayak) 2019-06 00:00: 00 No [facility] Vitamin B12 (Cyanocobal nayak) Vitamin B12 (Cyanocobal nayak) 2019-06 00:00: 00 No 1000[facility] Vitamin B12 (Cyanocobal nayak) Vitamin B12 (Cyanocobal nayak) 2019-06 00:00: 00 No 1000[facility] Vitamin B12 (Cyanocobal nayak) Vitamin B12 (Cyanocobal nayak) 2019-06 00:00: 00 No [facility] Vitamin B12 (Cyanocobal nayak) Vitamin B12 (Cyanocobal nayak) 2019-06 00:00: 00 No [facility] Vitamin B12 (Cyanocobal nayak) Vitamin B12 (Cyanocobal nayak) 2019-06 00:00: 00 No [facility] Vitamin B12 (Cyanocobal nayak) Vitamin B12 (Cyanocobal nayak) 2019-06 00:00: 00 No [facility] Vitamin B12 (Cyanocobal nayak) Vitamin B12 (Cyanocobal nayak) 2019-06 00:00: 00 No [facility] Vitamin B12 (Cyanocobal nayak) Vitamin B12 (Cyanocobal nayak) 2019-06 00:00: 00 No [facility] Vitamin B12 (Cyanocobal nayak) Vitamin B12 (Cyanocobal nayak) 2019-06 00:00: 00 No [facility] Vitamin B12 (Cyanocobal nayak) Vitamin B12 (Cyanocobal nayak) 2019-06 00:00: 00 No 1000[facility] Vitamin B12 (Cyanocobal nayak) Vitamin B12 (Cyanocobal nayak) 2019-06 00:00: 00 No 1000[facility] Vitamin B12 (Cyanocobal nayak) Vitamin B12 (Cyanocobal nayak) 2019-06 00:00: 00 No [facility] Vitamin B12 (Cyanocobal nayak) Vitamin B12 (Cyanocobal nayak) 2019-06 00:00: 00 No [facility] Vitamin B12 (Cyanocobal nayak) Vitamin B12 (Cyanocobal nayak) 2019-06 00:00: 00 No [facility] Vitamin B12 (Cyanocobal nayak) Vitamin B12 (Cyanocobal nayak) 2019-06 00:00: 00 No 1000[facility] Vitamin B12 (Cyanocobal nayak) Vitamin B12 (Cyanocobal nayak) 2019-06 00:00: 00 No 1000[facility] Vitamin B12 (Cyanocobal nayak) Vitamin B12 (Cyanocobal nayak) 2019-06 00:00: 00 No 1000[facility] Vitamin B12 (Cyanocobal nayak) Vitamin B12 (Cyanocobal nayak) 2019-06 00:00: 00 No 1000[facility] Vitamin B12 (Cyanocobal nayak) Vitamin B12 (Cyanocobal nayak) 2019-06 00:00: 00 No [facility] Vitamin B12 (Cyanocobal nayak) Vitamin B12 (Cyanocobal nayak) 2019-06 00:00: 00 No [facility] Vitamin B12 (Cyanocobal nayak) Vitamin B12 (Cyanocobal nayak) 2019-06 00:00: 00 No [facility] Vitamin B12 (Cyanocobal nayak) Vitamin B12 (Cyanocobal nayak) 2019-06 00:00: 00 No [facility] Vitamin B12 (Cyanocobal nayak) Vitamin B12 (Cyanocobal nayak) 2019-06 00:00: 00 No [facility] Vitamin B12 (Cyanocobal nayak) Vitamin B12 (Cyanocobal nayak) 2019-06 00:00: 00 No [facility] Vitamin B12 (Cyanocobal nayak) Vitamin B12 (Cyanocobal nayak) 2019-06 00:00: 00 No [facility] Vitamin B12 (Cyanocobal nayak) Vitamin B12 (Cyanocobal nayak) 2019-06 00:00: 00 No 1000[facility] Vitamin B12 (Cyanocobal nayak) Vitamin B12 (Cyanocobal nayak) 2019-06 00:00: 00 No [facility] Vitamin B12 (Cyanocobal nayak) Vitamin B12 (Cyanocobal nayak) 2019-06 00:00: 00 No 1000[facility] Vitamin B12 (Cyanocobal nayak) Vitamin B12 (Cyanocobal nayak) 2019-06 00:00: 00 No 1000[facility] Vitamin B12 (Cyanocobal nayak) Vitamin B12 (Cyanocobal nayak) 2019-06 00:00: 00 No 1000[facility] Vitamin B12 (Cyanocobal nayak) Vitamin B12 (Cyanocobal nayak) 2019-06 00:00: 00 No 1000[facility] Vitamin B12 (Cyanocobal nayak) Vitamin B12 (Cyanocobal nayak) 2019-06 00:00: 00 No 1000[facility] Vitamin B12 (Cyanocobal nayak) Vitamin B12 (Cyanocobal nayak) 2019-06 00:00: 00 No [facility] Vitamin B12 (Cyanocobal nayak) Vitamin B12 (Cyanocobal nayak) 2019-06 00:00: 00 No [facility] Vitamin B12 (Cyanocobal nayak) Vitamin B12 (Cyanocobal nayak) 2019-06 00:00: 00 No 1000[facility] Vitamin B12 (Cyanocobal nayak) Vitamin B12 (Cyanocobal nayak) 2019-06 00:00: 00 No [facility] Vitamin B12 (Cyanocobal nayak) Vitamin B12 (Cyanocobal nayak) 2019-06 00:00: 00 No 1000[facility] Vitamin B12 (Cyanocobal nayak) Vitamin B12 (Cyanocobal nayak) 2019-06 00:00: 00 No 1000[facility] Vitamin B12 (Cyanocobal nayak) Vitamin B12 (Cyanocobal nayak) 2019-06 00:00: 00 No 1000[facility] Vitamin B12 (Cyanocobal nayak) Vitamin B12 (Cyanocobal nayak) 2019-06 00:00: 00 No [facility] Vitamin B12 (Cyanocobal nayak) Vitamin B12 (Cyanocobal nayak) 2019-06 00:00: 00 No 1000[facility] Vitamin B12 (Cyanocobal nayak) Vitamin B12 (Cyanocobal nayak) 2019-06 00:00: 00 No 1000[facility] Vitamin B12 (Cyanocobal nayak) Vitamin B12 (Cyanocobal nayak) 2019-06 00:00: 00 No 1000[facility] Vitamin B12 (Cyanocobal nayak) Vitamin B12 (Cyanocobal nayak) 2019-06 00:00: 00 No 1000[facility] Vitamin B12 (Cyanocobal nayak) Vitamin B12 (Cyanocobal nayak) 2019-06 00:00: 00 No 1000[facility] Vitamin B12 (Cyanocobal nayak) Vitamin B12 (Cyanocobal nayak) 2019-06 00:00: 00 No 1000[facility] Vitamin B12 (Cyanocobal nayak) Vitamin B12 (Cyanocobal nayak) 2019-06 00:00: 00 No 1000[facility] Vitamin B12 (Cyanocobal nayak) Vitamin B12 (Cyanocobal nayak) 2019-06 00:00: 00 No 1000[facility] Vitamin B12 (Cyanocobal nayak) Vitamin B12 (Cyanocobal nayak) 2019-06 00:00: 00 No 1000[facility] Vitamin B12 (Cyanocobal nayak) Vitamin B12 (Cyanocobal nayak) 2019-06 00:00: 00 No 1000[facility] Vitamin B12 (Cyanocobal nayak) Vitamin B12 (Cyanocobal nayak) 2019-06 00:00: 00 No [facility] Vitamin B12 (Cyanocobal nayak) Vitamin B12 (Cyanocobal nayak) 2019-06 00:00: 00 No 1000[facility] Vitamin B12 (Cyanocobal nayak) Vitamin B12 (Cyanocobal nayak) 2019-06 00:00: 00 No [facility] Vitamin B12 (Cyanocobal nayak) Vitamin B12 (Cyanocobal nayak) 2019-06 00:00: 00 No 1000[facility] Vitamin B12 (Cyanocobal nayak) Vitamin B12 (Cyanocobal nayak) 2019-06 00:00: 00 No 1000[facility] Vitamin B12 (Cyanocobal nayak) Vitamin B12 (Cyanocobal nayak) 2019-06 00:00: 00 No 1000[facility] Vitamin B12 (Cyanocobal nayak) Vitamin B12 (Cyanocobal nayak) 2019-06 00:00: 00 No 1000[facility] Vitamin B12 (Cyanocobal nayak) Vitamin B12 (Cyanocobal nayak) 2019-06 00:00: 00 No [facility] Vitamin B12 (Cyanocobal nayak) Vitamin B12 (Cyanocobal nayak) 2019-06 00:00: 00 No [facility] Sulfamethox azole-Trime thoprim 800-160 MG Sulfamethox azole-Trime thoprim 800-160 MG 2019-06 00:00: 00 05-07 00:00 :00 No 1{table t} BID Sulfametho xazole-Tri methoprim 800-160 MG Vitamin B12 (Cyanocobal nayak) Vitamin B12 (Cyanocobal nayak) 2019-06 0 00:00: 00 No [facility] Vitamin B12 (Cyanocobal nayak) Vitamin B12 (Cyanocobal nayak) 2019-06 0 00:00: 00 No [facility] Vitamin B12 (Cyanocobal nayak) Vitamin B12 (Cyanocobal nayak) 2019-06 0 00:00: 00 No [facility] Vitamin B12 (Cyanocobal nayak) Vitamin B12 (Cyanocobal nayak) 2019-06 0 00:00: 00 No 1000[facility] Vitamin B12 (Cyanocobal nayak) Vitamin B12 (Cyanocobal nayak) 2019-06 0-22 00:00: 00 No [facility] Vitamin B12 (Cyanocobal nayak) Vitamin B12 (Cyanocobal nayak) 2019-06 0-22 00:00: 00 No 1000[facility] Vitamin B12 (Cyanocobal nayak) Vitamin B12 (Cyanocobal nayak) 2019-06 0-22 00:00: 00 No [facility] Vitamin B12 (Cyanocobal nayak) Vitamin B12 (Cyanocobal nayak) 2019-06 022 00:00: 00 No 1000[facility] Vitamin B12 (Cyanocobal nayak) Vitamin B12 (Cyanocobal nayak) 2019-06 0 00:00: 00 No 1000[facility] Vitamin B12 (Cyanocobal nayak) Vitamin B12 (Cyanocobal nayak) 2019-06 0- 00:00: 00 No 1000[facility] Vitamin B12 (Cyanocobal nayak) Vitamin B12 (Cyanocobal nayak) 2019-06 0 00:00: 00 No [facility] Vitamin B12 (Cyanocobal nayak) Vitamin B12 (Cyanocobal nayak) 2019-06 0 00:00: 00 No [facility] Vitamin B12 (Cyanocobal nayak) Vitamin B12 (Cyanocobal nayak) 2019-06 022 00:00: 00 No 1000[facility] Vitamin B12 (Cyanocobal nayak) Vitamin B12 (Cyanocobal nayak) 2019-06 0-22 00:00: 00 No [facility] Vitamin B12 (Cyanocobal nayak) Vitamin B12 (Cyanocobal nayak) 2019-06 0-22 00:00: 00 No 1000[facility] Vitamin B12 (Cyanocobal nayak) Vitamin B12 (Cyanocobal nayak) 2019-06 0-22 00:00: 00 No [facility] Vitamin B12 (Cyanocobal nayak) Vitamin B12 (Cyanocobal nayak) 2019-06 0-22 00:00: 00 No 1000[facility] Vitamin B12 (Cyanocobal nayak) Vitamin B12 (Cyanocobal nayak) 2019-06 0-22 00:00: 00 No [facility] Vitamin B12 (Cyanocobal nayak) Vitamin B12 (Cyanocobal nayak) 2019-06 0-22 00:00: 00 No [facility] Vitamin B12 (Cyanocobal nayak) Vitamin B12 (Cyanocobal nayak) 2019-06 0- 00:00: 00 No [facility] Vitamin B12 (Cyanocobal nayak) Vitamin B12 (Cyanocobal nayak) 2019-06 022 00:00: 00 No [facility] Vitamin B12 (Cyanocobal nayak) Vitamin B12 (Cyanocobal nayak) 2019-06 0 00:00: 00 No [facility] Vitamin B12 (Cyanocobal nayak) Vitamin B12 (Cyanocobal nayak) 2019-06 0 00:00: 00 No [facility] Vitamin B12 (Cyanocobal nayak) Vitamin B12 (Cyanocobal nayak) 2019-06 0 00:00: 00 No [facility] Vitamin B12 (Cyanocobal nayak) Vitamin B12 (Cyanocobal nayak) 2019-06 0 00:00: 00 No [facility] Vitamin B12 (Cyanocobal nayak) Vitamin B12 (Cyanocobal nayak) 2019-06 0 00:00: 00 No [facility] Vitamin B12 (Cyanocobal nayak) Vitamin B12 (Cyanocobal nayak) 2019-06 0-22 00:00: 00 No [facility] Vitamin B12 (Cyanocobal nayak) Vitamin B12 (Cyanocobal nayak) 2019-06 0-22 00:00: 00 No [facility] Vitamin B12 (Cyanocobal nayak) Vitamin B12 (Cyanocobal nayak) 2019-06 0-22 00:00: 00 No [facility] Vitamin B12 (Cyanocobal nayak) Vitamin B12 (Cyanocobal nayak) 2019-06 0-22 00:00: 00 No [facility] Vitamin B12 (Cyanocobal nayak) Vitamin B12 (Cyanocobal nayak) 2019-06 0-22 00:00: 00 No [facility] Vitamin B12 (Cyanocobal nayak) Vitamin B12 (Cyanocobal nayak) 2019-06 0-22 00:00: 00 No 1000[facility] Vitamin B12 (Cyanocobal nayak) Vitamin B12 (Cyanocobal nayak) 2019-06 0-22 00:00: 00 No 1000[facility] Vitamin B12 (Cyanocobal nayak) Vitamin B12 (Cyanocobal nayak) 2019-06 022 00:00: 00 No 1000[facility] Vitamin B12 (Cyanocobal nayak) Vitamin B12 (Cyanocobal nayak) 2019-06 022 00:00: 00 No 1000[facility] Vitamin B12 (Cyanocobal nayak) Vitamin B12 (Cyanocobal nayak) 2019-06 0- 00:00: 00 No [facility] Vitamin B12 (Cyanocobal nayak) Vitamin B12 (Cyanocobal nayak) 2019-06 022 00:00: 00 No [facility] Vitamin B12 (Cyanocobal nayak) Vitamin B12 (Cyanocobal nayak) 2019-06 022 00:00: 00 No 1000[facility] Vitamin B12 (Cyanocobal nayak) Vitamin B12 (Cyanocobal nayak) 2019-06 0-22 00:00: 00 No 1000[facility] Vitamin B12 (Cyanocobal nayak) Vitamin B12 (Cyanocobal nayak) 2019-06 022 00:00: 00 No [facility] Vitamin B12 (Cyanocobal nayak) Vitamin B12 (Cyanocobal nayak) 2019-06 0-22 00:00: 00 No 1000[facility] Vitamin B12 (Cyanocobal nayak) Vitamin B12 (Cyanocobal nayak) 2019-06 0-22 00:00: 00 No 1000[facility] Vitamin B12 (Cyanocobal nayak) Vitamin B12 (Cyanocobal nayak) 2019-06 0-22 00:00: 00 No [facility] Vitamin B12 (Cyanocobal nayak) Vitamin B12 (Cyanocobal nayak) 2019-06 0-22 00:00: 00 No 1000[facility] Vitamin B12 (Cyanocobal nayak) Vitamin B12 (Cyanocobal nayak) 2019-06 0-22 00:00: 00 No [facility] Vitamin B12 (Cyanocobal nayak) Vitamin B12 (Cyanocobal nayak) 2019-06 0-22 00:00: 00 No [facility] Vitamin B12 (Cyanocobal nayak) Vitamin B12 (Cyanocobal nayak) 2019-06 0-22 00:00: 00 No 1000[facility] Vitamin B12 (Cyanocobal nayak) Vitamin B12 (Cyanocobal nayak) 2019-06 0-22 00:00: 00 No 1000[facility] Vitamin B12 (Cyanocobal nayak) Vitamin B12 (Cyanocobal nayak) 2019-06 0-22 00:00: 00 No 1000[facility] Vitamin B12 (Cyanocobal nayak) Vitamin B12 (Cyanocobal nayak) 2019-06 0-22 00:00: 00 No 1000[facility] Vitamin B12 (Cyanocobal nayak) Vitamin B12 (Cyanocobal nayak) 2019-06 0-22 00:00: 00 No 1000[facility] Vitamin B12 (Cyanocobal nayak) Vitamin B12 (Cyanocobal nayak) 2019-06 0-22 00:00: 00 No 1000[facility] Vitamin B12 (Cyanocobal nayak) Vitamin B12 (Cyanocobal nayak) 2019-06 0-22 00:00: 00 No 1000[facility] Vitamin B12 (Cyanocobal nayak) Vitamin B12 (Cyanocobal nayak) 2019-06 0-22 00:00: 00 No 1000[facility] Vitamin B12 (Cyanocobal nayak) Vitamin B12 (Cyanocobal nayak) 2019-06 0-22 00:00: 00 No 1000[facility] Vitamin B12 (Cyanocobal nayak) Vitamin B12 (Cyanocobal nayak) 2019-06 0-22 00:00: 00 No 1000[facility] Vitamin B12 (Cyanocobal nayak) Vitamin B12 (Cyanocobal nayak) 2019-06 0-08 00:00: 00 No 1000[facility] Vitamin B12 (Cyanocobal nayak) Vitamin B12 (Cyanocobal nayak) 2019-06 0-08 00:00: 00 No 1000[facility] Vitamin B12 (Cyanocobal nayak) Vitamin B12 (Cyanocobal nayak) 2019-06 0-08 00:00: 00 No 1000[facility] Vitamin B12 (Cyanocobal nayak) Vitamin B12 (Cyanocobal nayak) 2019-06 0-08 00:00: 00 No 1000[facility] Vitamin B12 (Cyanocobal nayak) Vitamin B12 (Cyanocobal nayak) 2019-06 0-08 00:00: 00 No 1000[facility] Vitamin B12 (Cyanocobal nayak) Vitamin B12 (Cyanocobal nayak) 2019-06 0-08 00:00: 00 No 1000[facility] Vitamin B12 (Cyanocobal nayak) Vitamin B12 (Cyanocobal nayak) 2019-06 0-08 00:00: 00 No 1000[facility] Vitamin B12 (Cyanocobal nayak) Vitamin B12 (Cyanocobal nayak) 2019-06 0-08 00:00: 00 No 1000[facility] Vitamin B12 (Cyanocobal nayak) Vitamin B12 (Cyanocobal nayak) 2019-06 0-08 00:00: 00 No 1000[facility] Vitamin B12 (Cyanocobal nayak) Vitamin B12 (Cyanocobal nayak) 2019-06 0-08 00:00: 00 No 1000[facility] Vitamin B12 (Cyanocobal nayak) Vitamin B12 (Cyanocobal nayak) 2019-06 0-08 00:00: 00 No [facility] Vitamin B12 (Cyanocobal nayak) Vitamin B12 (Cyanocobal nayak) 2019-06 0-08 00:00: 00 No 1000ug [facility] Vitamin B12 (Cyanocobal nayak) Vitamin B12 (Cyanocobal nayak) 2019-06 0-08 00:00: 00 No 1000ug [facility] Vitamin B12 (Cyanocobal naayk) Vitamin B12 (Cyanocobal nayak) 2019-06 0-08 00:00: 00 No 1000ug [facility] Vitamin B12 (Cyanocobal nayak) Vitamin B12 (Cyanocobal nayak) 2019-06 0-08 00:00: 00 No 1000ug [facility] Vitamin B12 (Cyanocobal nayak) Vitamin B12 (Cyanocobal nayak) 2019-06 0-08 00:00: 00 No 1000ug [facility] Vitamin B12 (Cyanocobal nayak) Vitamin B12 (Cyanocobal nayak) 2019-06 008 00:00: 00 No 1000ug [facility] Vitamin B12 (Cyanocobal nayak) Vitamin B12 (Cyanocobal nayak) 2019-06 0-08 00:00: 00 No 1000ug [facility] Vitamin B12 (Cyanocobal nayak) Vitamin B12 (Cyanocobal nayak) 2019-06 0-08 00:00: 00 No 1000ug [facility] Vitamin B12 (Cyanocobal nayak) Vitamin B12 (Cyanocobal nayak) 2019-06 008 00:00: 00 No 1000ug [facility] Vitamin B12 (Cyanocobal nayak) Vitamin B12 (Cyanocobal nayak) 2019-06 008 00:00: 00 No 1000ug [facility] Vitamin B12 (Cyanocobal nayak) Vitamin B12 (Cyanocobal nayak) 2019-06 0-08 00:00: 00 No 1000ug [facility] Vitamin B12 (Cyanocobal nayak) Vitamin B12 (Cyanocobal nayak) 2019-06 0-08 00:00: 00 No 1000ug [facility] Vitamin B12 (Cyanocobal nayak) Vitamin B12 (Cyanocobal nayak) 2019-06 0-08 00:00: 00 No 1000ug [facility] Vitamin B12 (Cyanocobal nayak) Vitamin B12 (Cyanocobal nyaak) 2019-06 0-08 00:00: 00 No 1000ug [facility] Vitamin B12 (Cyanocobal nayak) Vitamin B12 (Cyanocobal nayak) 2019-06 0-08 00:00: 00 No 1000ug [facility] Vitamin B12 (Cyanocobal nayak) Vitamin B12 (Cyanocobal nayak) 2019-06 0-08 00:00: 00 No 1000ug [facility] Vitamin B12 (Cyanocobal nayak) Vitamin B12 (Cyanocobal nayak) 2019-06 0-08 00:00: 00 No 1000ug [facility] Vitamin B12 (Cyanocobal nayak) Vitamin B12 (Cyanocobal nayak) 2019-06 0-08 00:00: 00 No 1000ug [facility] Vitamin B12 (Cyanocobal nayak) Vitamin B12 (Cyanocobal nayak) 2019-06 008 00:00: 00 No 1000ug [facility] Vitamin B12 (Cyanocobal nayak) Vitamin B12 (Cyanocobal nayak) 2019-06 0-08 00:00: 00 No 1000ug [facility] Vitamin B12 (Cyanocobal nayak) Vitamin B12 (Cyanocobal nayak) 2019-06 0-08 00:00: 00 No 1000ug [facility] Vitamin B12 (Cyanocobal nayak) Vitamin B12 (Cyanocobal nayak) 2019-06 008 00:00: 00 No 1000ug [facility] Vitamin B12 (Cyanocobal nayak) Vitamin B12 (Cyanocobal nayak) 2019-06 0-08 00:00: 00 No 1000ug [facility] Vitamin B12 (Cyanocobal nayak) Vitamin B12 (Cyanocobal nayak) 2019-06 0-08 00:00: 00 No 1000ug [facility] Vitamin B12 (Cyanocobal nayak) Vitamin B12 (Cyanocobal nayak) 2019-06 0-08 00:00: 00 No 1000ug [facility] Vitamin B12 (Cyanocobal nayak) Vitamin B12 (Cyanocobal nayak) 2019-06 0-08 00:00: 00 No 1000ug [facility] Vitamin B12 (Cyanocobal nayak) Vitamin B12 (Cyanocobal nayak) 2019-06 0-08 00:00: 00 No 1000ug [facility] Vitamin B12 (Cyanocobal nayak) Vitamin B12 (Cyanocobal nayak) 2019-06 0-08 00:00: 00 No 1000ug [facility] Vitamin B12 (Cyanocobal nayak) Vitamin B12 (Cyanocobal nayak) 2019-06 0-08 00:00: 00 No 1000ug [facility] Vitamin B12 (Cyanocobal nayak) Vitamin B12 (Cyanocobal nayak) 2019-06 0-08 00:00: 00 No [facility] Vitamin B12 (Cyanocobal nayak) Vitamin B12 (Cyanocobal nayak) 2019-06 0-08 00:00: 00 No 1000ug [facility] Vitamin B12 (Cyanocobal nayak) Vitamin B12 (Cyanocobal nayak) 2019-06 008 00:00: 00 No 1000ug [facility] Vitamin B12 (Cyanocobal nayak) Vitamin B12 (Cyanocobal nayak) 2019-06 008 00:00: 00 No 1000ug [facility] Vitamin B12 (Cyanocobal nayak) Vitamin B12 (Cyanocobal nayak) 2019-06 0-08 00:00: 00 No 1000ug [facility] Vitamin B12 (Cyanocobal nayak) Vitamin B12 (Cyanocobal nayak) 2019-06 008 00:00: 00 No 1000ug [facility] Vitamin B12 (Cyanocobal nayak) Vitamin B12 (Cyanocobal nayak) 2019-06 0-08 00:00: 00 No 1000ug [facility] Vitamin B12 (Cyanocobal nayak) Vitamin B12 (Cyanocobal nayak) 2019-06 0-08 00:00: 00 No 1000ug [facility] Vitamin B12 (Cyanocobal nayak) Vitamin B12 (Cyanocobal nayak) 2019-06 0-08 00:00: 00 No 1000ug [facility] Vitamin B12 (Cyanocobal nayak) Vitamin B12 (Cyanocobal nayak) 2019-06 0-08 00:00: 00 No 1000ug [facility] Vitamin B12 (Cyanocobal nayak) Vitamin B12 (Cyanocobal nayak) 2019-06 0-08 00:00: 00 No 1000ug [facility] Vitamin B12 (Cyanocobal nayak) Vitamin B12 (Cyanocobal nayak) 2019-06 0-08 00:00: 00 No 1000ug [facility] Vitamin B12 (Cyanocobal nayak) Vitamin B12 (Cyanocobal nayak) 2019-06 0-08 00:00: 00 No 1000ug [facility] Vitamin B12 (Cyanocobal nayak) Vitamin B12 (Cyanocobal nayak) 2019-06 0-08 00:00: 00 No 1000ug [facility] Vitamin B12 (Cyanocobal nayak) Vitamin B12 (Cyanocobal nayak) 2019-06 0-08 00:00: 00 No 1000ug [facility] Vitamin B12 (Cyanocobal nayak) Vitamin B12 (Cyanocobal nayak) 2019-06 0-08 00:00: 00 No 1000ug [facility] Azithromyci n 250 MG Azithromyci n 250 MG 2019-06 0-06 00:00: 00 04-02 00:00 :00 No QD Azithromyc in 250 MG Azithromyci n 250 MG Azithromyci n 250 MG 2019-06 0-06 00:00: 00 04-02 00:00 :00 No QD Azithromyc in 250 MG Vitamin B12 (Cyanocobal nayak) Vitamin B12 (Cyanocobal nayak) 0 9-24 00:00: 00 No 1000ug [facility] Vitamin B12 (Cyanocobal nayak) Vitamin B12 (Cyanocobal nayak) 0 9-24 00:00: 00 No 1000ug [facility] Vitamin B12 (Cyanocobal nayak) Vitamin B12 (Cyanocobal nayak) 0 9-24 00:00: 00 No 1000ug [facility] Vitamin B12 (Cyanocobal nayak) Vitamin B12 (Cyanocobal nayak) 0 9-24 00:00: 00 No 1000ug [facility] Vitamin B12 (Cyanocobal nayak) Vitamin B12 (Cyanocobal nayak) 2019-0 9-24 00:00: 00 No 1000ug [facility] Vitamin B12 (Cyanocobal nayak) Vitamin B12 (Cyanocobal nayak) 2020-0 9-24 00:00: 00 No 1000ug [facility] Vitamin B12 (Cyanocobal nayak) Vitamin B12 (Cyanocobal nayak) 2020-0 9-24 00:00: 00 No 1000ug [facility] Vitamin B12 (Cyanocobal nayak) Vitamin B12 (Cyanocobal nayak) 2020-0 9-24 00:00: 00 No 1000ug [facility] Vitamin B12 (Cyanocobal nayak) Vitamin B12 (Cyanocobal nayak) 2020-0 9-24 00:00: 00 No 1000ug [facility] Vitamin B12 (Cyanocobal nayak) Vitamin B12 (Cyanocobal nayak) 2020-0 9-24 00:00: 00 No 1000ug [facility] Vitamin B12 (Cyanocobal nayak) Vitamin B12 (Cyanocobal nayak) 2020-0 9-24 00:00: 00 No 1000ug [facility] Vitamin B12 (Cyanocobal nayak) Vitamin B12 (Cyanocobal nayak) 2020-0 9-24 00:00: 00 No 1000ug [facility] Vitamin B12 (Cyanocobal nayak) Vitamin B12 (Cyanocobal nayak) 2020-0 9-24 00:00: 00 No 1000ug [facility] Vitamin B12 (Cyanocobal nayak) Vitamin B12 (Cyanocobal nayak) 2020-0 9-24 00:00: 00 No 1000ug [facility] Vitamin B12 (Cyanocobal nayak) Vitamin B12 (Cyanocobal nayak) 2020-0 9-24 00:00: 00 No 1000ug [facility] Vitamin B12 (Cyanocobal nayak) Vitamin B12 (Cyanocobal nayak) 2020-0 9-24 00:00: 00 No 1000ug [facility] Vitamin B12 (Cyanocobal nayak) Vitamin B12 (Cyanocobal nayak) 2020-0 9-24 00:00: 00 No 1000ug [facility] Vitamin B12 (Cyanocobal nayak) Vitamin B12 (Cyanocobal nayak) 2020-0 9-24 00:00: 00 No 1000ug [facility] Vitamin B12 (Cyanocobal nayak) Vitamin B12 (Cyanocobal nayak) 2020-0 9-24 00:00: 00 No 1000ug [facility] Vitamin B12 (Cyanocobal nayak) Vitamin B12 (Cyanocobal nayak) 2020-0 9-24 00:00: 00 No 1000ug [facility] Vitamin B12 (Cyanocobal nayak) Vitamin B12 (Cyanocobal nayak) 2020-0 9-24 00:00: 00 No 1000ug [facility] Vitamin B12 (Cyanocobal nayak) Vitamin B12 (Cyanocobal nayak) 2020-0 9-24 00:00: 00 No 1000ug [facility] Vitamin B12 (Cyanocobal nayak) Vitamin B12 (Cyanocobal nayak) 2020-0 9-24 00:00: 00 No 1000ug [facility] Vitamin B12 (Cyanocobal nayak) Vitamin B12 (Cyanocobal nayak) 2020-0 9-24 00:00: 00 No 1000ug [facility] Vitamin B12 (Cyanocobal nayak) Vitamin B12 (Cyanocobal nayak) 2020-0 9-24 00:00: 00 No 1000ug [facility] Vitamin B12 (Cyanocobal nayak) Vitamin B12 (Cyanocobal nayak) 2020-0 9-24 00:00: 00 No 1000ug [facility] Vitamin B12 (Cyanocobal nayak) Vitamin B12 (Cyanocobal nayak) 2020-0 9-24 00:00: 00 No 1000ug [facility] Vitamin B12 (Cyanocobal nayak) Vitamin B12 (Cyanocobal nayak) 2020-0 9-24 00:00: 00 No 1000ug [facility] Vitamin B12 (Cyanocobal nayak) Vitamin B12 (Cyanocobal nayak) 2020-0 9-24 00:00: 00 No 1000ug [facility] Vitamin B12 (Cyanocobal nayak) Vitamin B12 (Cyanocobal nayak) 2020-0 9-24 00:00: 00 No 1000ug [facility] Vitamin B12 (Cyanocobal nayak) Vitamin B12 (Cyanocobal nayak) 2020-0 9-24 00:00: 00 No 1000ug [facility] Vitamin B12 (Cyanocobal nayak) Vitamin B12 (Cyanocobal nayak) 2020-0 9-24 00:00: 00 No 1000ug [facility] Vitamin B12 (Cyanocobal nayak) Vitamin B12 (Cyanocobal nayak) 2020-0 9-24 00:00: 00 No 1000ug [facility] Vitamin B12 (Cyanocobal nayak) Vitamin B12 (Cyanocobal nayak) 2020-0 9-24 00:00: 00 No 1000ug [facility] Vitamin B12 (Cyanocobal nayak) Vitamin B12 (Cyanocobal nayak) 2020-0 9-24 00:00: 00 No 1000ug [facility] Vitamin B12 (Cyanocobal nayak) Vitamin B12 (Cyanocobal nayak) 2020-0 9-24 00:00: 00 No 1000ug [facility] Vitamin B12 (Cyanocobal nayak) Vitamin B12 (Cyanocobal nayak) 2020-0 9-24 00:00: 00 No 1000ug [facility] Vitamin B12 (Cyanocobal nayak) Vitamin B12 (Cyanocobal nayak) 2020-0 9-24 00:00: 00 No 1000ug [facility] Vitamin B12 (Cyanocobal nayak) Vitamin B12 (Cyanocobal nayak) 2020-0 9-24 00:00: 00 No 1000ug [facility] Vitamin B12 (Cyanocobal nayak) Vitamin B12 (Cyanocobal nayak) 2020-0 9-24 00:00: 00 No 1000ug [facility] Vitamin B12 (Cyanocobal nayak) Vitamin B12 (Cyanocobal nayak) 2020-0 9-24 00:00: 00 No 1000ug [facility] Vitamin B12 (Cyanocobal nayak) Vitamin B12 (Cyanocobal nayak) 2020-0 9-24 00:00: 00 No 1000ug [facility] Vitamin B12 (Cyanocobal nayak) Vitamin B12 (Cyanocobal nayak) 2020-0 9-24 00:00: 00 No 1000ug [facility] Vitamin B12 (Cyanocobal nayak) Vitamin B12 (Cyanocobal nayak) 2020-0 9-24 00:00: 00 No 1000ug [facility] Vitamin B12 (Cyanocobal nayak) Vitamin B12 (Cyanocobal nayak) 2020-0 9-24 00:00: 00 No 1000ug [facility] Vitamin B12 (Cyanocobal nayak) Vitamin B12 (Cyanocobal nayak) 2020-0 9-24 00:00: 00 No 1000ug [facility] Vitamin B12 (Cyanocobal nayak) Vitamin B12 (Cyanocobal nayak) 2020-0 9-24 00:00: 00 No 1000ug [facility] Vitamin B12 (Cyanocobal nayak) Vitamin B12 (Cyanocobal nayak) 2020-0 9-24 00:00: 00 No 1000ug [facility] Vitamin B12 (Cyanocobal nayak) Vitamin B12 (Cyanocobal nayak) 2020-0 924 00:00: 00 No 1000ug [facility] Vitamin B12 (Cyanocobal nayak) Vitamin B12 (Cyanocobal nayak) 2020-0 9-24 00:00: 00 No 1000ug [facility] Vitamin B12 (Cyanocobal nayak) Vitamin B12 (Cyanocobal nayak) 2020-0 9-24 00:00: 00 No 1000ug [facility] Vitamin B12 (Cyanocobal nayak) Vitamin B12 (Cyanocobal nayak) 2020-0 9-24 00:00: 00 No 1000ug [facility] Vitamin B12 (Cyanocobal nayak) Vitamin B12 (Cyanocobal nayak) 2020-0 9-24 00:00: 00 No 1000ug [facility] Vitamin B12 (Cyanocobal nayak) Vitamin B12 (Cyanocobal nayak) 2020-0 9-24 00:00: 00 No 1000ug [facility] Vitamin B12 (Cyanocobal nayak) Vitamin B12 (Cyanocobal nayak) 2020-0 9-24 00:00: 00 No 1000ug [facility] Vitamin B12 (Cyanocobal nayak) Vitamin B12 (Cyanocobal nayak) 2020-0 9-24 00:00: 00 No 1000ug [facility] Vitamin D3 95854 UNIT Vitamin D3 82762 UNIT 2020-0 9-23 00:00: 00 2020- 12-21 00:00 :00 No 1{capsu le} Vitamin D3 71547 UNIT Vitamin D3 45532 UNIT Vitamin D3 13366 UNIT 03-15 00:00: 00 06-12 00:00 :00 No 1{capsu le} Vitamin D3 28209 UNIT Vitamin D3 84858 UNIT Vitamin D3 69733 UNIT 03-15 00:00: 00 06-12 00:00 :00 No 1{capsu le} Vitamin D3 89827 UNIT Vitamin D3 12315 UNIT Vitamin D3 87331 UNIT 03-15 00:00: 00 06-12 00:00 :00 No 1{capsu le} Vitamin D3 64160 UNIT Vitamin D3 26162 UNIT Vitamin D3 54725 UNIT 03-15 00:00: 00 06-12 00:00 :00 No 1{capsu le} Vitamin D3 26510 UNIT Scopolamine Scopolamine 02-18 00:00: 00 03-20 00:00 :00 No Tonio Miller 1 patch to skin behind the ear as needed [facility] Scopolamine 1 MG/3DAYS Scopolamine 1 MG/3DAYS 02-18 00:00: 00 03-20 00:00 :00 No Scopolamin e 1 MG/3DAYS Tamsulosin HCl Tamsulosin HCl 02-17 00:00: 00 03-19 00:00 :00 No Tonio Miller 1 capsule [facility] Tamsulosin HCl 0.4 MG Tamsulosin HCl 0.4 MG 02-17 00:00: 00 03-19 00:00 :00 No 1{capsu le} QD Tamsulosin HCl 0.4 MG Nystatin Nystatin 5-11 00:00: 00 Yes Tonio Miller 4 - 6 ml swish, retain in mouth as long as possible then swallow [facility] Kenalog (Triamcinol one) Kenalog (Triamcinol one) 2-11 00:00: 00 No 40mg [facility] Kenalog (Triamcinol one) Kenalog (Triamcinol one) 2-11 00:00: 00 No 40mg [facility] Kenalog (Triamcinol one) Kenalog (Triamcinol one) 0 2- 00:00: 00 No 40mg [facility] Kenalog (Triamcinol one) Kenalog (Triamcinol one) 2019-0 2- 00:00: 00 No 40mg [facility] Kenalog (Triamcinol one) Kenalog (Triamcinol one) 2019-0 2- 00:00: 00 No 40mg [facility] Kenalog (Triamcinol one) Kenalog (Triamcinol one) 0 2 00:00: 00 No 40mg [facility] Kenalog (Triamcinol one) Kenalog (Triamcinol one) 0 2 00:00: 00 No 40mg [facility] Kenalog (Triamcinol one) Kenalog (Triamcinol one) 0 - 00:00: 00 No 40mg [facility] Kenalog (Triamcinol one) Kenalog (Triamcinol one) 0 08-03 00:00: 00 No 40mg [facility] Kenalog (Triamcinol one) Kenalog (Triamcinol one) 2019-0 2 00:00: 00 No 40mg [facility] Kenalog (Triamcinol one) Kenalog (Triamcinol one) 0 2- 00:00: 00 No 40mg [facility] Kenalog (Triamcinol one) Kenalog (Triamcinol one) 0 2 00:00: 00 No 40mg [facility] Kenalog (Triamcinol one) Kenalog (Triamcinol one) 2019-0 2 00:00: 00 No 40mg [facility] Kenalog (Triamcinol one) Kenalog (Triamcinol one) 0 2- 00:00: 00 No 40mg [facility] Kenalog (Triamcinol one) Kenalog (Triamcinol one) 2020-0 2-11 00:00: 00 No 40mg [facility] Kenalog (Triamcinol one) Kenalog (Triamcinol one) 2020-0 2-11 00:00: 00 No 40mg [facility] Kenalog (Triamcinol one) Kenalog (Triamcinol one) 2020-0 2-11 00:00: 00 No 40mg [facility] Kenalog (Triamcinol one) Kenalog (Triamcinol one) 2019-0 2-11 00:00: 00 No 40mg [facility] Kenalog (Triamcinol one) Kenalog (Triamcinol one) 2019-0 2- 00:00: 00 No 40mg [facility] Kenalog (Triamcinol one) Kenalog (Triamcinol one) 2019-0 2-11 00:00: 00 No 40mg [facility] Kenalog (Triamcinol one) Kenalog (Triamcinol one) 2019-0 2- 00:00: 00 No 40mg [facility] Kenalog (Triamcinol one) Kenalog (Triamcinol one) 2020-0 2-11 00:00: 00 No 40mg [facility] Kenalog (Triamcinol one) Kenalog (Triamcinol one) 2020-0 2-11 00:00: 00 No 40mg [facility] Kenalog (Triamcinol one) Kenalog (Triamcinol one) 2020-0 2-11 00:00: 00 No 40mg [facility] Kenalog (Triamcinol one) Kenalog (Triamcinol one) 2020-0 2-11 00:00: 00 No 40mg [facility] Kenalog (Triamcinol one) Kenalog (Triamcinol one) 2020-0 2-11 00:00: 00 No 40mg [facility] Kenalog (Triamcinol one) Kenalog (Triamcinol one) 2020-0 2-11 00:00: 00 No 40mg [facility] Kenalog (Triamcinol one) Kenalog (Triamcinol one) 2019-0 2-11 00:00: 00 No 40mg [facility] Kenalog (Triamcinol one) Kenalog (Triamcinol one) 2019-0 2- 00:00: 00 No 40mg [facility] Kenalog (Triamcinol one) Kenalog (Triamcinol one) 2019-0 2- 00:00: 00 No 40mg [facility] Kenalog (Triamcinol one) Kenalog (Triamcinol one) 2019-0 2- 00:00: 00 No 40mg [facility] Kenalog (Triamcinol one) Kenalog (Triamcinol one) 2019-0 2- 00:00: 00 No 40mg [facility] Kenalog (Triamcinol one) Kenalog (Triamcinol one) 2019-0 2- 00:00: 00 No 40mg [facility] Kenalog (Triamcinol one) Kenalog (Triamcinol one) 2019-0 2- 00:00: 00 No 40mg [facility] Kenalog (Triamcinol one) Kenalog (Triamcinol one) 2019-0 2-11 00:00: 00 No 40mg [facility] Kenalog (Triamcinol one) Kenalog (Triamcinol one) 2019-0 2-11 00:00: 00 No 40mg [facility] Kenalog (Triamcinol one) Kenalog (Triamcinol one) 2019-0 2-11 00:00: 00 No 40mg [facility] Kenalog (Triamcinol one) Kenalog (Triamcinol one) 2019-0 2-11 00:00: 00 No 40mg [facility] Kenalog (Triamcinol one) Kenalog (Triamcinol one) 2019-0 2-11 00:00: 00 No 40mg [facility] Kenalog (Triamcinol one) Kenalog (Triamcinol one) 2019-0 2- 00:00: 00 No 40mg [facility] Kenalog (Triamcinol one) Kenalog (Triamcinol one) 2019-0 2- 00:00: 00 No 40mg [facility] Kenalog (Triamcinol one) Kenalog (Triamcinol one) 2019-0 2- 00:00: 00 No 40mg [facility] Kenalog (Triamcinol one) Kenalog (Triamcinol one) 2019-0 2- 00:00: 00 No 40mg [facility] Kenalog (Triamcinol one) Kenalog (Triamcinol one) 2019-0 2- 00:00: 00 No 40mg [facility] Kenalog (Triamcinol one) Kenalog (Triamcinol one) 2019-0 2- 00:00: 00 No 40mg [facility] Kenalog (Triamcinol one) Kenalog (Triamcinol one) 2019-0 2- 00:00: 00 No 40mg [facility] Kenalog (Triamcinol one) Kenalog (Triamcinol one) 2019-0 2- 00:00: 00 No 40mg [facility] Kenalog (Triamcinol one) Kenalog (Triamcinol one) 2019-0 2- 00:00: 00 No 40mg [facility] Kenalog (Triamcinol one) Kenalog (Triamcinol one) 2019-0 2- 00:00: 00 No 40mg [facility] Kenalog (Triamcinol one) Kenalog (Triamcinol one) 2019-0 2-11 00:00: 00 No 40mg [facility] Kenalog (Triamcinol one) Kenalog (Triamcinol one) 2019-0 2-11 00:00: 00 No 40mg [facility] Kenalog (Triamcinol one) Kenalog (Triamcinol one) 2019-0 2-11 00:00: 00 No 40mg [facility] Kenalog (Triamcinol one) Kenalog (Triamcinol one) 2019-0 2-11 00:00: 00 No 40mg [facility] Kenalog (Triamcinol one) Kenalog (Triamcinol one) 2019-0 2-11 00:00: 00 No 40mg [facility] Kenalog (Triamcinol one) Kenalog (Triamcinol one) 0 2-11 00:00: 00 No 40mg [facility] Kenalog (Triamcinol one) Kenalog (Triamcinol one) 2019-0 2-11 00:00: 00 No 40mg [facility] Kenalog (Triamcinol one) Kenalog (Triamcinol one) 2019-0 1-14 00:00: 00 No 40mg [facility] Kenalog (Triamcinol one) Kenalog (Triamcinol one) 2019-0 1-14 00:00: 00 No 40mg [facility] Kenalog (Triamcinol one) Kenalog (Triamcinol one) 2019-0 1-14 00:00: 00 No 40mg [facility] Kenalog (Triamcinol one) Kenalog (Triamcinol one) 2019-0 1-14 00:00: 00 No 40mg [facility] Kenalog (Triamcinol one) Kenalog (Triamcinol one) 2019-0 1-14 00:00: 00 No 40mg [facility] Kenalog (Triamcinol one) Kenalog (Triamcinol one) 2019-0 1-14 00:00: 00 No 40mg [facility] Kenalog (Triamcinol one) Kenalog (Triamcinol one) 2020-0 1-14 00:00: 00 No 40mg [facility] Kenalog (Triamcinol one) Kenalog (Triamcinol one) 07-06 00:00: 00 No 40mg [facility] Kenalog (Triamcinol one) Kenalog (Triamcinol one) 07-06 00:00: 00 No 40mg [facility] Kenalog (Triamcinol one) Kenalog (Triamcinol one) 07-06 00:00: 00 No 40mg [facility] Kenalog (Triamcinol one) Kenalog (Triamcinol one) 07-06 00:00: 00 No 40mg [facility] Kenalog (Triamcinol one) Kenalog (Triamcinol one) 07-06 00:00: 00 No 40mg [facility] Kenalog (Triamcinol one) Kenalog (Triamcinol one) 07-06 00:00: 00 No 40mg [facility] Kenalog (Triamcinol one) Kenalog (Triamcinol one) 07-06 00:00: 00 No 40mg [facility] Kenalog (Triamcinol one) Kenalog (Triamcinol one) 07-06 00:00: 00 No 40mg [facility] Kenalog (Triamcinol one) Kenalog (Triamcinol one) 07-06 00:00: 00 No 40mg [facility] Kenalog (Triamcinol one) Kenalog (Triamcinol one) 07-06 00:00: 00 No 40mg [facility] (Triamcinol one) Kenalog (Triamcinol one) 07-06 00:00: 00 No 40mg [facility] (Triamcinol one) Kenalog (Triamcinol one) 2020-0 1-14 00:00: 00 No 40mg [facility] (Triamcinol one) Kenalog (Triamcinol one) 0 -14 00:00: 00 No 40mg [facility] (Triamcinol one) Kenalog (Triamcinol one) 0 14 00:00: 00 No 40mg [facility] (Triamcinol one) Kenalog (Triamcinol one) 0 14 00:00: 00 No 40mg [facility]al[facility] (Triamcinol one) Kenalog (Triamcinol one) 0 14 00:00: 00 No 40mg [facility]al[facility] (Triamcinol one) Kenalog (Triamcinol one) 0 14 00:00: 00 No 40mg [facility] (Triamcinol one) Kenalog (Triamcinol one) 0 -14 00:00: 00 No 40mg [facility]al[facility] (Triamcinol one) Kenalog (Triamcinol one) 0 14 00:00: 00 No 40mg [facility] (Triamcinol one) Kenalog (Triamcinol one) 0 14 00:00: 00 No 40mg [facility]al[facility] (Triamcinol one) Kenalog (Triamcinol one) 0 -14 00:00: 00 No 40mg [facility] (Triamcinol one) Kenalog (Triamcinol one) 0 14 00:00: 00 No 40mg [facility] (Triamcinol one) Kenalog (Triamcinol one) 0 14 00:00: 00 No 40mg [facility] (Triamcinol one) Kenalog (Triamcinol one) 0 14 00:00: 00 No 40[facility] Kenalog (Triamcinol one) Kenalog (Triamcinol one) 0 -14 00:00: 00 No 40mg [facility]al[facility] (Triamcinol one) Kenalog (Triamcinol one) 0 14 00:00: 00 No 40mg [facility] (Triamcinol one) Kenalog (Triamcinol one) 0 14 00:00: 00 No 40[facility] Kenalog (Triamcinol one) Kenalog (Triamcinol one) 0 14 00:00: 00 No 40mg [facility] Kenalog (Triamcinol one) Kenalog (Triamcinol one) 0 14 00:00: 00 No 40mg [facility] Kenalog (Triamcinol one) Kenalog (Triamcinol one) 0 -14 00:00: 00 No 40[facility] Kenal[facility] (Triamcinol one) Kenalog (Triamcinol one) 0 14 00:00: 00 No 40mg [facility] Kenal[facility] (Triamcinol one) Kenalog (Triamcinol one) 0 14 00:00: 00 No 40mg [facility] Kenal[facility] (Triamcinol one) Kenalog (Triamcinol one) 0 -14 00:00: 00 No 40mg [facility]al[facility] (Triamcinol one) Kenalog (Triamcinol one) 0 14 00:00: 00 No 40mg [facility]al[facility] (Triamcinol one) Kenalog (Triamcinol one) 0 -14 00:00: 00 No 40mg [facility] (Triamcinol one) Kenalog (Triamcinol one) 0 -14 00:00: 00 No 40mg [facility] Kenalog (Triamcinol one) Kenalog (Triamcinol one) 0 14 00:00: 00 No 40mg [facility]al[facility] (Triamcinol one) Kenalog (Triamcinol one) 0 14 00:00: 00 No 40mg [facility] (Triamcinol one) Kenalog (Triamcinol one) 0 07-06 00:00: 00 No 40mg [facility] (Triamcinol one) Kenalog (Triamcinol one) 0 07-06 00:00: 00 No 40mg [facility] Kenal[facility] (Triamcinol one) Kenalog (Triamcinol one) 07-06 00:00: 00 No 40mg [facility] Kenal[facility] (Triamcinol one) Kenalog (Triamcinol one) 0 07-06 00:00: 00 No 40mg [facility] (Triamcinol one) Kenalog (Triamcinol one) 0 07-06 00:00: 00 No 40mg [facility] (Triamcinol one) Kenalog (Triamcinol one) 0 07-06 00:00: 00 No 40mg [facility] (Triamcinol one) Kenalog (Triamcinol one) 0 07-06 00:00: 00 No 40mg [facility] (Triamcinol one) Kenalog (Triamcinol one) 0 14 00:00: 00 No 40mg [facility] (Triamcinol one) Kenalog (Triamcinol one) 07-06 00:00: 00 No 40mg [facility] (Triamcinol one) Kenalog (Triamcinol one) 0 14 00:00: 00 No 40mg [facility] (Triamcinol one) Kenalog (Triamcinol one) 07-06 00:00: 00 No 40mg [facility] Kenalog (Triamcinol one) Kenalog (Triamcinol one) 2018-06 00:00: 00 No 40mg [facility] Kenal[facility] (Triamcinol one) Kenalog (Triamcinol one) 2018-06 00:00: 00 No 40mg [facility] Kenal[facility] (Triamcinol one) Kenalog (Triamcinol one) 2018-06 00:00: 00 No 40mg [facility] (Triamcinol one) Kenalog (Triamcinol one) 2018-06 00:00: 00 No 40mg [facility] (Triamcinol one) Kenalog (Triamcinol one) 2018-06 00:00: 00 No 40mg [facility] Kenal[facility] (Triamcinol one) Kenalog (Triamcinol one) 2018-06 00:00: 00 No 40mg [facility] (Triamcinol one) Kenalog (Triamcinol one) 2018-06 00:00: 00 No 40mg [facility] (Triamcinol one) Kenalog (Triamcinol one) 2018-06 00:00: 00 No 40mg [facility] Kenalog (Triamcinol one) Kenalog (Triamcinol one) 2018-06 00:00: 00 No 40mg [facility] Kenal[facility] (Triamcinol one) Kenalog (Triamcinol one) 2018-06 00:00: 00 No 40mg [facility] Kenal[facility] (Triamcinol one) Kenalog (Triamcinol one) 2018-06 00:00: 00 No 40mg [facility] Kenal[facility] (Triamcinol one) Kenalog (Triamcinol one) 2018-06 00:00: 00 No 40mg [facility] Kenal[facility] (Triamcinol one) Kenalog (Triamcinol one) 2018-06 00:00: 00 No 40mg [facility] Kenal[facility] (Triamcinol one) Kenalog (Triamcinol one) 2018-06 00:00: 00 No 40mg [facility] (Triamcinol one) Kenalog (Triamcinol one) 2018-06 00:00: 00 No 40mg [facility]al[facility] (Triamcinol one) Kenalog (Triamcinol one) 2018-06 00:00: 00 No 40mg [facility] (Triamcinol one) Kenalog (Triamcinol one) 2018-06 00:00: 00 No 40mg [facility] (Triamcinol one) Kenalog (Triamcinol one) 2018-06 00:00: 00 No 40mg [facility] (Triamcinol one) Kenalog (Triamcinol one) 2018-06 00:00: 00 No 40mg [facility] (Triamcinol one) Kenalog (Triamcinol one) 2018-06 00:00: 00 No 40mg [facility] (Triamcinol one) Kenalog (Triamcinol one) 2018-06 00:00: 00 No 40mg [facility] (Triamcinol one) Kenalog (Triamcinol one) 2018-06 00:00: 00 No 40mg [facility] (Triamcinol one) Kenalog (Triamcinol one) 2018-06 00:00: 00 No 40mg [facility] (Triamcinol one) Kenalog (Triamcinol one) 2018-06 00:00: 00 No 40mg [facility] Kenal[facility] (Triamcinol one) Kenalog (Triamcinol one) 2018-06 00:00: 00 No 40mg [facility] Kenal[facility] (Triamcinol one) Kenalog (Triamcinol one) 2018-06 00:00: 00 No 40mg [facility] (Triamcinol one) Kenalog (Triamcinol one) 2018-06 00:00: 00 No 40mg [facility] (Triamcinol one) Kenalog (Triamcinol one) 2018-06 00:00: 00 No 40mg [facility] (Triamcinol one) Kenalog (Triamcinol one) 2018-06 00:00: 00 No 40mg [facility] (Triamcinol one) Kenalog (Triamcinol one) 2018-06 00:00: 00 No 40mg [facility] (Triamcinol one) Kenalog (Triamcinol one) 2018-06 00:00: 00 No 40mg [facility] (Triamcinol one) Kenalog (Triamcinol one) 2018-06 00:00: 00 No 40mg [facility] (Triamcinol one) Kenalog (Triamcinol one) 2018-06 00:00: 00 No 40mg [facility] (Triamcinol one) Kenalog (Triamcinol one) 2018-06 00:00: 00 No 40mg [facility] Kenal[facility] (Triamcinol one) Kenalog (Triamcinol one) 2018-06 00:00: 00 No 40mg [facility] (Triamcinol one) Kenalog (Triamcinol one) 2018-06 00:00: 00 No 40mg [facility] (Triamcinol one) Kenalog (Triamcinol one) 2018-06 00:00: 00 No 40mg [facility] Kenal[facility] (Triamcinol one) Kenalog (Triamcinol one) 2018-06 00:00: 00 No 40mg [facility] (Triamcinol one) Kenalog (Triamcinol one) 2018-06 00:00: 00 No 40mg [facility] (Triamcinol one) Kenalog (Triamcinol one) 2018-06 00:00: 00 No 40mg [facility] (Triamcinol one) Kenalog (Triamcinol one) 2018-06 00:00: 00 No 40mg [facility] (Triamcinol one) Kenalog (Triamcinol one) 2018-06 00:00: 00 No 40mg [facility] (Triamcinol one) Kenalog (Triamcinol one) 2018-06 00:00: 00 No 40mg [facility]al[facility] (Triamcinol one) Kenalog (Triamcinol one) 2018-06 00:00: 00 No 40mg [facility] (Triamcinol one) Kenalog (Triamcinol one) 2018-06 00:00: 00 No 40mg [facility] (Triamcinol one) Kenalog (Triamcinol one) 2018-06 00:00: 00 No 40mg [facility]al[facility] (Triamcinol one) Kenalog (Triamcinol one) 2018-06 00:00: 00 No 40mg [facility]al[facility] (Triamcinol one) Kenalog (Triamcinol one) 2018-06 00:00: 00 No 40mg [facility] Kenal[facility] (Triamcinol one) Kenalog (Triamcinol one) 2018-06 00:00: 00 No 40mg [facility] Kenal[facility] (Triamcinol one) Kenalog (Triamcinol one) 2018-06 00:00: 00 No 40mg [facility] Kenalog (Triamcinol one) Kenalog (Triamcinol one) 2018-06 00:00: 00 No 40mg [facility] Kenal[facility] (Triamcinol one) Kenalog (Triamcinol one) 2018-06 00:00: 00 No 40mg [facility] Kenal[facility] (Triamcinol one) Kenalog (Triamcinol one) 2018-06 00:00: 00 No 40mg [facility] Kenal[facility] (Triamcinol one) Kenalog (Triamcinol one) 2018-06 00:00: 00 No 40mg [facility] Kenal[facility] (Triamcinol one) Kenalog (Triamcinol one) 2018-06 00:00: 00 No 40mg [facility]al[facility] (Triamcinol one) Kenalog (Triamcinol one) 2018-06 00:00: 00 No 40mg [facility] Cipro 500 mg tablet 2018-06 00:00: 00 No 1mg Flagyl 500 mg tablet 2018-06 00:00: 00 No 1mg Diflucan 150 mg tablet 2018-06 00:00: 00 No 1mg Plavix 75 mg tablet 2018-06 00:00: 00 No 1mg atenolol 100 mg tablet 2018-06 00:00: 00 No 1mg [facility] (Triamcinol one) Kenalog (Triamcinol one) 2017-06 00:00: 00 No 40mg [facility] Kenal[facility] (Triamcinol one) Kenalog (Triamcinol one) 2017-06 00:00: 00 No 40[facility] (Triamcinol one) Kenalog (Triamcinol one) 2017-06 00:00: 00 No 40mg [facility]al[facility] (Triamcinol one) Kenalog (Triamcinol one) 2017-06 00:00: 00 No 40mg [facility] Kenal[facility] (Triamcinol one) Kenalog (Triamcinol one) 2017-06 00:00: 00 No 40mg [facility] (Triamcinol one) Kenalog (Triamcinol one) 2017-06 00:00: 00 No 40mg [facility] Kenal[facility] (Triamcinol one) Kenalog (Triamcinol one) 2017-06 00:00: 00 No 40mg [facility]al[facility] (Triamcinol one) Kenalog (Triamcinol one) 2017-06 00:00: 00 No 40mg [facility] (Triamcinol one) Kenalog (Triamcinol one) 2017-06 00:00: 00 No 40mg [facility] (Triamcinol one) Kenalog (Triamcinol one) 2017-06 00:00: 00 No 40mg [facility] (Triamcinol one) Kenalog (Triamcinol one) 2017-06 00:00: 00 No 40mg [facility] (Triamcinol one) Kenalog (Triamcinol one) 2017-06 00:00: 00 No 40mg [facility] (Triamcinol one) Kenalog (Triamcinol one) 2017-06 00:00: 00 No 40mg [facility]al[facility] (Triamcinol one) Kenalog (Triamcinol one) 2017-06 00:00: 00 No 40mg [facility] Kenalog (Triamcinol one) Kenalog (Triamcinol one) 2017-06 00:00: 00 No 40mg [facility]al[facility] (Triamcinol one) Kenalog (Triamcinol one) 2017-06 00:00: 00 No 40mg [facility] Kenal[facility] (Triamcinol one) Kenalog (Triamcinol one) 2017-06 00:00: 00 No 40mg [facility]al[facility] (Triamcinol one) Kenalog (Triamcinol one) 2017-06 00:00: 00 No 40mg [facility]al[facility] (Triamcinol one) Kenalog (Triamcinol one) 2017-06 00:00: 00 No 40mg [facility]al[facility] (Triamcinol one) Kenalog (Triamcinol one) 2017-06 00:00: 00 No 40mg [facility]al[facility] (Triamcinol one) Kenalog (Triamcinol one) 2017-06 00:00: 00 No 40mg [facility] (Triamcinol one) Kenalog (Triamcinol one) 2017-06 00:00: 00 No 40mg [facility]al[facility] (Triamcinol one) Kenalog (Triamcinol one) 2017-06 00:00: 00 No 40mg [facility] (Triamcinol one) Kenalog (Triamcinol one) 2017-06 00:00: 00 No 40mg [facility]al[facility] (Triamcinol one) Kenalog (Triamcinol one) 2017-06 00:00: 00 No 40mg [facility] Kenal[facility] (Triamcinol one) Kenalog (Triamcinol one) 2017-06 00:00: 00 No 40mg [facility] (Triamcinol one) Kenalog (Triamcinol one) 2017-06 00:00: 00 No 40mg [facility] Kenal[facility] (Triamcinol one) Kenalog (Triamcinol one) 2017-06 00:00: 00 No 40mg [facility] Kenal[facility] (Triamcinol one) Kenalog (Triamcinol one) 2017-06 00:00: 00 No 40mg [facility] Kenal[facility] (Triamcinol one) Kenalog (Triamcinol one) 2017-06 00:00: 00 No 40mg [facility]al[facility] (Triamcinol one) Kenalog (Triamcinol one) 2017-06 00:00: 00 No 40mg [facility]al[facility] (Triamcinol one) Kenalog (Triamcinol one) 2017-06 00:00: 00 No 40mg [facility] (Triamcinol one) Kenalog (Triamcinol one) 2017-06 00:00: 00 No 40mg [facility] (Triamcinol one) Kenalog (Triamcinol one) 2017-06 00:00: 00 No 40mg [facility]al[facility] (Triamcinol one) Kenalog (Triamcinol one) 2017-06 00:00: 00 No 40mg [facility] Kenal[facility] (Triamcinol one) Kenalog (Triamcinol one) 2017-06 00:00: 00 No 40mg [facility] Kenal[facility] (Triamcinol one) Kenalog (Triamcinol one) 2017-06 00:00: 00 No 40mg [facility] Kenal[facility] (Triamcinol one) Kenalog (Triamcinol one) 2017-06 00:00: 00 No 40mg [facility] Kenal[facility] (Triamcinol one) Kenalog (Triamcinol one) 2017-06 00:00: 00 No 40mg [facility] (Triamcinol one) Kenalog (Triamcinol one) 2017-06 00:00: 00 No 40mg [facility] Kenal[facility] (Triamcinol one) Kenalog (Triamcinol one) 2017-06 00:00: 00 No 40mg [facility] (Triamcinol one) Kenalog (Triamcinol one) 2017-06 00:00: 00 No 40mg [facility] (Triamcinol one) Kenalog (Triamcinol one) 2017-06 00:00: 00 No 40mg [facility] (Triamcinol one) Kenalog (Triamcinol one) 2017-06 00:00: 00 No 40mg [facility] (Triamcinol one) Kenalog (Triamcinol one) 2017-06 00:00: 00 No 40mg [facility] (Triamcinol one) Kenalog (Triamcinol one) 2017-06 00:00: 00 No 40mg [facility] (Triamcinol one) Kenalog (Triamcinol one) 2017-06 00:00: 00 No 40mg [facility] (Triamcinol one) Kenalog (Triamcinol one) 2017-06 00:00: 00 No 40mg [facility] (Triamcinol one) Kenalog (Triamcinol one) 2017-06 00:00: 00 No 40mg [facility] (Triamcinol one) Kenalog (Triamcinol one) 2017-06 00:00: 00 No 40mg [facility] (Triamcinol one) Kenalog (Triamcinol one) 2017-06 00:00: 00 No 40mg [facility] Kenal[facility] (Triamcinol one) Kenalog (Triamcinol one) 2017-06 2 00:00: 00 No 40mg [facility] (Triamcinol one) Kenalog (Triamcinol one) 2017-06 00:00: 00 No 40mg [facility] (Triamcinol one) Kenalog (Triamcinol one) 2017-06 2 00:00: 00 No 40mg [facility] (Triamcinol one) Kenalog (Triamcinol one) 2017-06 00:00: 00 No 40mg [facility] (Triamcinol one) Kenalog (Triamcinol one) 2017-06 00:00: 00 No 40mg [facility] (Triamcinol one) Kenalog (Triamcinol one) 2017-06 0-03 00:00: 00 No 40mg [facility] (Triamcinol one) Kenalog (Triamcinol one) 2017-06 0-03 00:00: 00 No 40mg [facility] (Triamcinol one) Kenalog (Triamcinol one) 2017-06 0-03 00:00: 00 No 40mg [facility] (Triamcinol one) Kenalog (Triamcinol one) 2017-06 0-03 00:00: 00 No 40mg [facility] (Triamcinol one) Kenalog (Triamcinol one) 2017-06 0-03 00:00: 00 No 40mg [facility] (Triamcinol one) Kenalog (Triamcinol one) 2017-06 0-03 00:00: 00 No 40mg [facility] (Triamcinol one) Kenalog (Triamcinol one) 2017-06 0-03 00:00: 00 No 40mg [facility] Kenal[facility] (Triamcinol one) Kenalog (Triamcinol one) 2017-06 0- 00:00: 00 No 40mg [facility] (Triamcinol one) Kenalog (Triamcinol one) 2017-06 003 00:00: 00 No 40mg [facility] (Triamcinol one) Kenalog (Triamcinol one) 2017-06 0 00:00: 00 No 40mg [facility] (Triamcinol one) Kenalog (Triamcinol one) 2017-06 0 00:00: 00 No 40mg [facility] (Triamcinol one) Kenalog (Triamcinol one) 2017-06 0 00:00: 00 No 40mg [facility] (Triamcinol one) Kenalog (Triamcinol one) 2017-06 0 00:00: 00 No 40mg [facility] (Triamcinol one) Kenalog (Triamcinol one) 2017-06 0 00:00: 00 No 40mg [facility] (Triamcinol one) Kenalog (Triamcinol one) 2017-06 0 00:00: 00 No 40mg [facility] (Triamcinol one) Kenalog (Triamcinol one) 2017-06 0- 00:00: 00 No 40mg [facility] (Triamcinol one) Kenalog (Triamcinol one) 2017-06 0-03 00:00: 00 No 40mg [facility] (Triamcinol one) Kenalog (Triamcinol one) 2017-06 0-03 00:00: 00 No 40mg [facility] (Triamcinol one) Kenalog (Triamcinol one) 2017-06 0-03 00:00: 00 No 40mg [facility]al[facility] (Triamcinol one) Kenalog (Triamcinol one) 2017-06 0 00:00: 00 No 40[facility] (Triamcinol one) Kenalog (Triamcinol one) 2017-06 0 00:00: 00 No 40mg [facility] (Triamcinol one) Kenalog (Triamcinol one) 2017-06 0 00:00: 00 No 40mg [facility] (Triamcinol one) Kenalog (Triamcinol one) 2017-06 00:00: 00 No 40mg [facility] (Triamcinol one) Kenalog (Triamcinol one) 2017-06 00:00: 00 No 40mg [facility] (Triamcinol one) Kenalog (Triamcinol one) 2017-06 00:00: 00 No 40mg [facility] (Triamcinol one) Kenalog (Triamcinol one) 2017-06 0 00:00: 00 No 40mg [facility] (Triamcinol one) Kenalog (Triamcinol one) 2017-06 00:00: 00 No 40mg [facility] (Triamcinol one) Kenalog (Triamcinol one) 2017-06 0 00:00: 00 No 40mg [facility] (Triamcinol one) Kenalog (Triamcinol one) 2017-06 0 00:00: 00 No 40mg [facility] (Triamcinol one) Kenalog (Triamcinol one) 2017-06 00:00: 00 No 40mg [facility] (Triamcinol one) Kenalog (Triamcinol one) 2017-06 003 00:00: 00 No 40mg [facility] (Triamcinol one) Kenalog (Triamcinol one) 2017-06 0-03 00:00: 00 No 40[facility] (Triamcinol one) Kenalog (Triamcinol one) 2017-06 0-03 00:00: 00 No 40[facility] (Triamcinol one) Kenalog (Triamcinol one) 2017-06 0 00:00: 00 No 40mg [facility] (Triamcinol one) Kenalog (Triamcinol one) 2017-06 0 00:00: 00 No 40mg [facility] (Triamcinol one) Kenalog (Triamcinol one) 2017-06 0 00:00: 00 No 40mg [facility] (Triamcinol one) Kenalog (Triamcinol one) 2017-06 0 00:00: 00 No 40mg [facility] (Triamcinol one) Kenalog (Triamcinol one) 2017-06 0 00:00: 00 No 40mg [facility] (Triamcinol one) Kenalog (Triamcinol one) 2017-06 003 00:00: 00 No 40mg [facility] (Triamcinol one) Kenalog (Triamcinol one) 2017-06 0 00:00: 00 No [facility] (Triamcinol one) Kenalog (Triamcinol one) 2017-06 0- 00:00: 00 No [facility] (Triamcinol one) Kenalog (Triamcinol one) 2017-06 0-03 00:00: 00 No 40mg [facility] Kenalog (Triamcinol one) Kenalog (Triamcinol one) 2017-06 0-03 00:00: 00 No 40mg [facility] Kenalog (Triamcinol one) Kenalog (Triamcinol one) 2017-06 0 00:00: 00 No 40mg [facility] Kenalog (Triamcinol one) Kenalog (Triamcinol one) 2017-06 0 00:00: 00 No 40mg [facility] Kenalog (Triamcinol one) Kenalog (Triamcinol one) 2017-06 00:00: 00 No 40mg [facility] Kenalog (Triamcinol one) Kenalog (Triamcinol one) 2017-06 00:00: 00 No 40mg [facility] Kenalog (Triamcinol one) Kenalog (Triamcinol one) 2017-06 00:00: 00 No 40mg [facility] Kenalog (Triamcinol one) Kenalog (Triamcinol one) 2017-06 00:00: 00 No 40mg [facility] Kenalog (Triamcinol one) Kenalog (Triamcinol one) 2017-06 00:00: 00 No 40mg [facility] Kenalog (Triamcinol one) Kenalog (Triamcinol one) 2017-06 00:00: 00 No 40mg [facility] Kenalog (Triamcinol one) Kenalog (Triamcinol one) 2017-06 00:00: 00 No 40mg [facility] Kenalog (Triamcinol one) Kenalog (Triamcinol one) 2017-06 00:00: 00 No 40mg [facility] Kenalog (Triamcinol one) Kenalog (Triamcinol one) 2017-06 0 00:00: 00 No 40mg [facility] Kenalog (Triamcinol one) Kenalog (Triamcinol one) 2017-06 0 00:00: 00 No 40mg [facility] Kenalog (Triamcinol one) Kenalog (Triamcinol one) 2018-1 0-03 00:00: 00 No 40mg [facility] Kenalog (Triamcinol one) Kenalog (Triamcinol one) 0 11-04 00:00: 00 No 40mg [facility] Kenalog (Triamcinol one) Kenalog (Triamcinol one) 0 11-04 00:00: 00 No 40mg [facility] Kenalog (Triamcinol one) Kenalog (Triamcinol one) 0 11-04 00:00: 00 No 40mg [facility] Kenalog (Triamcinol one) Kenalog (Triamcinol one) 0 11-04 00:00: 00 No 40mg [facility] Kenalog (Triamcinol one) Kenalog (Triamcinol one) 0 11-04 00:00: 00 No 40mg [facility] Kenalog (Triamcinol one) Kenalog (Triamcinol one) 0 11-04 00:00: 00 No 40mg [facility] Kenalog (Triamcinol one) Kenalog (Triamcinol one) 0 11-04 00:00: 00 No 40mg [facility] Kenalog (Triamcinol one) Kenalog (Triamcinol one) 0 11-04 00:00: 00 No 40mg [facility] Kenalog (Triamcinol one) Kenalog (Triamcinol one) 0 11-04 00:00: 00 No 40mg [facility] Kenalog (Triamcinol one) Kenalog (Triamcinol one) 0 11-04 00:00: 00 No 40mg [facility] Kenalog (Triamcinol one) Kenalog (Triamcinol one) 0 15 00:00: 00 No 40mg [facility] Kenalog (Triamcinol one) Kenalog (Triamcinol one) 0 11-04 00:00: 00 No 40mg [facility] Kenalog (Triamcinol one) Kenalog (Triamcinol one) 0 15 00:00: 00 No 40mg [facility] Kenalog (Triamcinol one) Kenalog (Triamcinol one) 0 15 00:00: 00 No 40mg [facility] Kenalog (Triamcinol one) Kenalog (Triamcinol one) 0 15 00:00: 00 No 40mg [facility] Kenalog (Triamcinol one) Kenalog (Triamcinol one) 0 15 00:00: 00 No 40mg [facility] Kenalog (Triamcinol one) Kenalog (Triamcinol one) 0 15 00:00: 00 No 40mg [facility] Kenalog (Triamcinol one) Kenalog (Triamcinol one) 0 15 00:00: 00 No 40mg [facility] Kenalog (Triamcinol one) Kenalog (Triamcinol one) 0 15 00:00: 00 No 40mg [facility] Kenalog (Triamcinol one) Kenalog (Triamcinol one) 0 15 00:00: 00 No 40mg [facility] Kenalog (Triamcinol one) Kenalog (Triamcinol one) 0 15 00:00: 00 No 40mg [facility] Kenalog (Triamcinol one) Kenalog (Triamcinol one) 0 15 00:00: 00 No 40mg [facility] Kenalog (Triamcinol one) Kenalog (Triamcinol one) 0 15 00:00: 00 No 40mg [facility] Kenalog (Triamcinol one) Kenalog (Triamcinol one) 0 15 00:00: 00 No 40mg [facility] Kenalog (Triamcinol one) Kenalog (Triamcinol one) 0 11-04 00:00: 00 No 40mg [facility] Kenalog (Triamcinol one) Kenalog (Triamcinol one) 0 11-04 00:00: 00 No 40mg [facility] Kenalog (Triamcinol one) Kenalog (Triamcinol one) 0 11-04 00:00: 00 No 40mg [facility] Kenalog (Triamcinol one) Kenalog (Triamcinol one) 0 11-04 00:00: 00 No 40mg [facility] Kenalog (Triamcinol one) Kenalog (Triamcinol one) 0 11-04 00:00: 00 No 40mg [facility] Kenalog (Triamcinol one) Kenalog (Triamcinol one) 0 11-04 00:00: 00 No 40mg [facility] Kenalog (Triamcinol one) Kenalog (Triamcinol one) 0 11-04 00:00: 00 No 40mg [facility] Kenalog (Triamcinol one) Kenalog (Triamcinol one) 0 11-04 00:00: 00 No 40mg [facility] Kenalog (Triamcinol one) Kenalog (Triamcinol one) 0 11-04 00:00: 00 No 40mg [facility] Kenalog (Triamcinol one) Kenalog (Triamcinol one) 0 11-04 00:00: 00 No 40mg [facility] Kenalog (Triamcinol one) Kenalog (Triamcinol one) 0 11-04 00:00: 00 No 40mg [facility] Kenalog (Triamcinol one) Kenalog (Triamcinol one) 0 11-04 00:00: 00 No 40mg [facility] Kenalog (Triamcinol one) Kenalog (Triamcinol one) 0 11-04 00:00: 00 No 40mg [facility] Kenalog (Triamcinol one) Kenalog (Triamcinol one) 0 11-04 00:00: 00 No 40mg [facility] Kenalog (Triamcinol one) Kenalog (Triamcinol one) 0 11-04 00:00: 00 No 40mg [facility] Kenalog (Triamcinol one) Kenalog (Triamcinol one) 0 11-04 00:00: 00 No 40mg [facility] Kenalog (Triamcinol one) Kenalog (Triamcinol one) 0 11-04 00:00: 00 No 40mg [facility] Kenalog (Triamcinol one) Kenalog (Triamcinol one) 0 11-04 00:00: 00 No 40mg [facility] Kenalog (Triamcinol one) Kenalog (Triamcinol one) 0 11-04 00:00: 00 No 40mg [facility] Kenalog (Triamcinol one) Kenalog (Triamcinol one) 0 11-04 00:00: 00 No 40mg [facility] Kenalog (Triamcinol one) Kenalog (Triamcinol one) 0 11-04 00:00: 00 No 40mg [facility] Kenalog (Triamcinol one) Kenalog (Triamcinol one) 0 11-04 00:00: 00 No 40mg [facility] Kenalog (Triamcinol one) Kenalog (Triamcinol one) 0 11-04 00:00: 00 No 40mg [facility] Kenalog (Triamcinol one) Kenalog (Triamcinol one) 0 11-04 00:00: 00 No 40mg [facility] Kenalog (Triamcinol one) Kenalog (Triamcinol one) 11-04 00:00: 00 No 40mg [facility] Kenalog (Triamcinol one) Kenalog (Triamcinol one) 11-04 00:00: 00 No 40mg [facility] Kenalog (Triamcinol one) Kenalog (Triamcinol one) 11-04 00:00: 00 No 40mg [facility] Kenalog (Triamcinol one) Kenalog (Triamcinol one) 11-04 00:00: 00 No 40mg [facility] Kenalog (Triamcinol one) Kenalog (Triamcinol one) 11-04 00:00: 00 No 40mg [facility] Kenalog (Triamcinol one) Kenalog (Triamcinol one) 11-04 00:00: 00 No 40mg [facility] Kenalog (Triamcinol one) Kenalog (Triamcinol one) 11-04 00:00: 00 No 40mg [facility] Kenalog (Triamcinol one) Kenalog (Triamcinol one) 11-04 00:00: 00 No 40mg [facility] clotrimazol e 1 % topical cream 10-28 00:00: 00 No 1% terbinafine HCl 250 mg tablet 10-28 00:00: 00 No 1mg Bactrim DS 800 mg-160 mg tablet 09-27 00:00: 00 No 1mg triamcinolo ne acetonide 0.025 % topical cream 09-09 00:00: 00 No 1% loratadine 10 mg tablet 09-09 00:00: 00 No 1mg atenolol 100 mg tablet 08-24 00:00: 00 No 1mg aspirin 81 mg tablet,laura yed release 08-24 00:00: 00 No 1mg naproxen 250 mg tablet 08-24 00:00: 00 No 1mg spironolact one 25 mg tablet 08-24 00:00: 00 No 1mg ondansetron HCl 4 mg tablet 08-24 00:00: 00 No 1mg promethazin e 12.5 mg tablet 08-24 00:00: 00 No 1mg gabapentin 300 mg capsule 08-24 00:00: 00 No 1mg cyanocobala min (vit B-12) 1,000 mcg/mL injection solution 08-24 00:00: 00 No 2mcg/mL trazodone 50 mg tablet 07-03 00:00: 00 No 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 1.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 (1 mg over 3 days) 2015-06 00:00: 00 No 1mg/0.3 mL meclizine 25 mg tablet 2015-06 00:00: 00 No 1mg Tessalon Perles 100 mg capsule 2015-06 00:00: 00 No 12mg clotrimazol e 1 % topical cream 2015-06 00:00: 00 No 1% Pataday 0.2 % eye drops 2015-06 00:00: 00 No 1% 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 1.5 mg 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 (1 mg over 3 days) 02-15 00:00: 00 No 1mg/0.3 mL clarithromy keshia 500 mg tablet 12-19 00:00: 00 No 1mg naproxen 375 mg tablet 12-13 00:00: 00 No 1mg Tessalon Perles 100 mg capsule 12-13 00:00: 00 No 1mg albuterol sulfate 2.5 mg/3 mL (0.083 %) solution for nebulizatio n 12-13 00:00: 00 No 3/3 mL (0.083 %) azithromyci n 250 mg tablet 12-12 00:00: 00 No 1mg azithromyci n 250 mg tablet 12-12 00:00: 00 No mg cyanocobala min (vit B-12) 1,000 mcg/mL injection solution 12-06 00:00: 00 No 2mcg/mL Nasonex 50 mcg/actuati on [place] 11-18 00:00: 00 No 2mcg/ac tuation Nexium 40 mg capsule,del ayed release 11-18 00:00: 00 No 1mg atenolol 100 mg tablet 10-14 00:00: 00 No 1mg Amitiza 24 mcg capsule 10-14 00:00: 00 No 1mcg 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 1.5 mg 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 (1 mg over 3 days) 08-31 00:00: 00 No 1mg/0.3 mL promethazin e 25 mg tablet 07-04 00:00: 00 No 5mg furosemide 40 mg tablet 06-24 00:00: 00 No 1mg meclizine 25 mg tablet 2014-06 00:00: 00 No 1mg hydrocodone 10 mg-acetamin ophen 325 mg tablet 06-23 00:00: 00 No 1mg lorazepam 0.5 mg tablet 06-23 00:00: 00 No 1mg Trelegy Ellipta Trelegy Ellipta Yes Tonio Miller 1 puff [facility] Loratadine Loratadine Yes Tonio Miller 1 tablet [facility] Vitamin B12 Vitamin B12 Yes Tonio Miller 1 tablet [facility] Synthroid Synthroid Yes Tonio Miller 1 tablet on an empty stomach in the morning [facility] Aspirin Aspirin Yes Tonio Miller TAKE 1 TABLET BY MOUTH EVERY DAY [facility] Aspirin Low Dose Aspirin Low Dose Yes Tonio Miller TAKE 1 TABLET BY MOUTH EVERY DAY [facility] Atenolol Atenolol Yes Tonio Miller TAKE 1 TABLET BY MOUTH EVERY DAY [facility] Nexium Nexium Yes Tonio Miller TAKE ONE CAPSULE BY MOUTH EVERY DAY [facility] ProAir HFA ProAir HFA Yes Tonio Miller 2 puffs as needed [facility] Furosemide Furosemide Yes Tonio Miller 1 tablet [facility] Venlafaxine HCl ER Venlafaxine HCl ER Yes Tonio Miller TAKE ONE CAPSULE BY MOUTH EVERY DAY [facility] Simvastatin Simvastatin Yes Tonio Miller 1 tablet in the evening [facility] Simvastatin Simvastatin Yes Tonio Miller 1 tablet in the evening [facility] Levothyroxi ne Sodium Levothyroxi ne Sodium Yes Tonio Miller TAKE 1 TABLET BY MOUTH EVERY DAY IN THE MORNING [facility] Aspirin Aspirin Yes Tonio Miller TAKE 1 TABLET BY MOUTH EVERY DAY [facility] Clopidogrel Bisulfate Clopidogrel Bisulfate Yes Tonio Miller 1 tablet [facility] Promethazin e HCl Promethazin e HCl Yes Tonio Miller 1 ml as needed [facility] Gabapentin Gabapentin Yes Tonio Miller TAKE 1 CAPSULE BY MOUTH EVERY DAY [facility] Zofran Zofran Yes Tonio Miller 1 tablet as needed [facility] Docusate Sodium Docusate Sodium Yes Tonio Miller TAKE 1 CAPSULE BY MOUTH TWICE A DAY [facility] Spironolact one Spironolact one Yes Tonio Miller TAKE 1 TABLET BY MOUTH EVERY DAY [facility] Venlafaxine HCl ER Venlafaxine HCl ER Yes Tonio Miller 1 capsule with food [facility] Nasonex Nasonex Yes Tonio Miller 2 sprays in each nostril [facility] Hydrocodone -Acetaminop hen Hydrocodone -Acetaminop hen Yes Tonio Miller 1 tablet as needed [facility] Clotrimazol e Clotrimazol e Yes Tonio Miller 1 applicatio n [facility] HYDROcodone -Acetaminop hen 5-325 MG HYDROcodone -Acetaminop hen 5-325 MG No 1{table t_as_ne eded} QID HYDROcodon e-Acetamin ophen 5-325 MG Clopidogrel Bisulfate 75 MG Clopidogrel Bisulfate 75 MG No 1{table t} QD Clopidogre l Bisulfate 75 MG Simvastatin 40 MG Simvastatin 40 MG No 1{table t_in_th e_eveni ng} QD Simvastati n 40 MG Venlafaxine HCl ER 75 MG Venlafaxine HCl ER 75 MG No 1{capsu le_with _food} QD Venlafaxin e HCl ER 75 MG NexIUM 40 MG NexIUM 40 MG No NexIUM 40 MG HYDROcodone -Acetaminop hen 5-325 MG HYDROcodone -Acetaminop hen 5-325 MG No 1{table t} QD HYDROcodon e-Acetamin ophen 5-325 MG Furosemide 20 MG Furosemide 20 MG No 1{table t} QD Furosemide 20 MG Gabapentin 100 MG Gabapentin 100 MG No Gabapentin 100 MG Linzess 145 mcg Linzess 145 mcg No 1{capsu le} QD Linzess 145 mcg Venlafaxine HCl ER 150 MG Venlafaxine HCl ER 150 MG No QD Venlafaxin e HCl ER 150 MG Aspirin Low Dose 81 MG Aspirin Low Dose 81 MG No Aspirin Low Dose 81 MG Vitamin D3 84724 UNIT Vitamin D3 31087 UNIT No 1{capsu le} Vitamin D3 52630 UNIT Synthroid 25 MCG Synthroid 25 MCG No QD Synthroid 25 MCG Aspirin 81 MG Aspirin 81 MG No Aspirin 81 MG Synthroid 25 MCG Synthroid 25 MCG No QD Synthroid 25 MCG Venlafaxine HCl ER 150 MG Venlafaxine HCl ER 150 MG No QD Venlafaxin e HCl ER 150 MG Spironolact one 25 MG Spironolact one 25 MG No 1{table t} QD Spironolac tone 25 MG ProAir HFA 108 (90 Base) MCG/ACT ProAir HFA 108 (90 Base) MCG/ACT No 2{puffs _as_nee ded} QID ProAir HFA 108 (90 Base) MCG/ACT Trelegy Ellipta 100-62.5-25 MCG/INH Trelegy Ellipta 100-62.5-25 MCG/INH No 1{puff} QD Trelegy Ellipta 100-62.5-2 5 MCG/INH Atenolol 100 MG Atenolol 100 MG No Atenolol 100 MG Zofran 4 MG Zofran 4 MG No 1{table t_as_ne eded} QD Zofran 4 MG Levothyroxi ne Sodium 50 MCG Levothyroxi ne Sodium 50 MCG No Levothyrox ine Sodium 50 MCG Aspirin 81 MG Aspirin 81 MG No Aspirin 81 MG HYDROcodone -Acetaminop hen 5-325 MG HYDROcodone -Acetaminop hen 5-325 MG No 1{table t_as_ne eded} QID HYDROcodon e-Acetamin ophen 5-325 MG Clopidogrel Bisulfate 75 MG Clopidogrel Bisulfate 75 MG No 1{table t} QD Clopidogre l Bisulfate 75 MG Simvastatin 40 MG Simvastatin 40 MG No 1{table t_in_th e_eveni ng} QD Simvastati n 40 MG Venlafaxine HCl ER 75 MG Venlafaxine HCl ER 75 MG No 1{capsu le_with _food} QD Venlafaxin e HCl ER 75 MG NexIUM 40 MG NexIUM 40 MG No NexIUM 40 MG HYDROcodone -Acetaminop hen 5-325 MG HYDROcodone -Acetaminop hen 5-325 MG No 1{table t} QD HYDROcodon e-Acetamin ophen 5-325 MG Furosemide 20 MG Furosemide 20 MG No 1{table t} QD Furosemide 20 MG Gabapentin 100 MG Gabapentin 100 MG No Gabapentin 100 MG Linzess 145 mcg Linzess 145 mcg No 1{capsu le} QD Linzess 145 mcg Venlafaxine HCl ER 150 MG Venlafaxine HCl ER 150 MG No QD Venlafaxin e HCl ER 150 MG Aspirin Low Dose 81 MG Aspirin Low Dose 81 MG No Aspirin Low Dose 81 MG Vitamin D3 04182 UNIT Vitamin D3 20347 UNIT No 1{capsu le} Vitamin D3 48440 UNIT Synthroid 25 MCG Synthroid 25 MCG No QD Synthroid 25 MCG Aspirin 81 MG Aspirin 81 MG No Aspirin 81 MG Synthroid 25 MCG Synthroid 25 MCG No QD Synthroid 25 MCG Venlafaxine HCl ER 150 MG Venlafaxine HCl ER 150 MG No QD Venlafaxin e HCl ER 150 MG Spironolact one 25 MG Spironolact one 25 MG No 1{table t} QD Spironolac tone 25 MG ProAir HFA 108 (90 Base) MCG/ACT ProAir HFA 108 (90 Base) MCG/ACT No 2{puffs _as_nee ded} QID ProAir HFA 108 (90 Base) MCG/ACT Trelegy Ellipta 100-62.5-25 MCG/INH Trelegy Ellipta 100-62.5-25 MCG/INH No 1{puff} QD Trelegy Ellipta 100-62.5-2 5 MCG/INH Atenolol 100 MG Atenolol 100 MG No Atenolol 100 MG Zofran 4 MG Zofran 4 MG No 1{table t_as_ne eded} QD Zofran 4 MG Levothyroxi ne Sodium 50 MCG Levothyroxi ne Sodium 50 MCG No Levothyrox ine Sodium 50 MCG Vitamin D3 52725 UNIT Vitamin D3 64760 UNIT No 1{capsu le} Vitamin D3 19566 UNIT Furosemide 20 MG Furosemide 20 MG No 1{table t} QD Furosemide 20 MG Gabapentin 100 MG Gabapentin 100 MG No Gabapentin 100 MG Aspirin 81 MG Aspirin 81 MG No Aspirin 81 MG Zofran 4 MG Zofran 4 MG No 1{table t_as_ne eded} QD Zofran 4 MG Spironolact one 25 MG Spironolact one 25 MG No 1{table t} QD Spironolac tone 25 MG Atenolol 100 MG Atenolol 100 MG No Atenolol 100 MG HYDROcodone -Acetaminop hen 5-325 MG HYDROcodone -Acetaminop hen 5-325 MG No 1{table t} QD HYDROcodon e-Acetamin ophen 5-325 MG Aspirin 81 MG Aspirin 81 MG No Aspirin 81 MG Synthroid 25 MCG Synthroid 25 MCG No QD Synthroid 25 MCG Linzess 145 mcg Linzess 145 mcg No 1{capsu le} QD Linzess 145 mcg ProAir HFA 108 (90 Base) MCG/ACT ProAir HFA 108 (90 Base) MCG/ACT No 2{puffs _as_nee ded} QID ProAir HFA 108 (90 Base) MCG/ACT HYDROcodone -Acetaminop hen 5-325 MG HYDROcodone -Acetaminop hen 5-325 MG No 1{table t_as_ne eded} QID HYDROcodon e-Acetamin ophen 5-325 MG Trelegy Ellipta 100-62.5-25 MCG/INH Trelegy Ellipta 100-62.5-25 MCG/INH No 1{puff} QD Trelegy Ellipta 100-62.5-2 5 MCG/INH Aspirin Low Dose 81 MG Aspirin Low Dose 81 MG No Aspirin Low Dose 81 MG Clopidogrel Bisulfate 75 MG Clopidogrel Bisulfate 75 MG No 1{table t} QD Clopidogre l Bisulfate 75 MG NexIUM 40 MG NexIUM 40 MG No NexIUM 40 MG Venlafaxine HCl ER 150 MG Venlafaxine HCl ER 150 MG No QD Venlafaxin e HCl ER 150 MG Simvastatin 40 MG Simvastatin 40 MG No 1{table t_in_th e_eveni ng} QD Simvastati n 40 MG Venlafaxine HCl ER 75 MG Venlafaxine HCl ER 75 MG No 1{capsu le_with _food} QD Venlafaxin e HCl ER 75 MG Levothyroxi ne Sodium 50 MCG Levothyroxi ne Sodium 50 MCG No Levothyrox ine Sodium 50 MCG Synthroid 25 MCG Synthroid 25 MCG No QD Synthroid 25 MCG Vitamin D3 53661 UNIT Vitamin D3 24879 UNIT No 1{capsu le} Vitamin D3 60123 UNIT Furosemide 20 MG Furosemide 20 MG No 1{table t} QD Furosemide 20 MG Gabapentin 100 MG Gabapentin 100 MG No Gabapentin 100 MG Aspirin 81 MG Aspirin 81 MG No Aspirin 81 MG Zofran 4 MG Zofran 4 MG No 1{table t_as_ne eded} QD Zofran 4 MG Spironolact one 25 MG Spironolact one 25 MG No 1{table t} QD Spironolac tone 25 MG Atenolol 100 MG Atenolol 100 MG No Atenolol 100 MG HYDROcodone -Acetaminop hen 5-325 MG HYDROcodone -Acetaminop hen 5-325 MG No 1{table t} QD HYDROcodon e-Acetamin ophen 5-325 MG Aspirin 81 MG Aspirin 81 MG No Aspirin 81 MG Synthroid 25 MCG Synthroid 25 MCG No QD Synthroid 25 MCG Linzess 145 mcg Linzess 145 mcg No 1{capsu le} QD Linzess 145 mcg ProAir HFA 108 (90 Base) MCG/ACT ProAir HFA 108 (90 Base) MCG/ACT No 2{puffs _as_nee ded} QID ProAir HFA 108 (90 Base) MCG/ACT HYDROcodone -Acetaminop hen 5-325 MG HYDROcodone -Acetaminop hen 5-325 MG No 1{table t_as_ne eded} QID HYDROcodon e-Acetamin ophen 5-325 MG Trelegy Ellipta 100-62.5-25 MCG/INH Trelegy Ellipta 100-62.5-25 MCG/INH No 1{puff} QD Trelegy Ellipta 100-62.5-2 5 MCG/INH Aspirin Low Dose 81 MG Aspirin Low Dose 81 MG No Aspirin Low Dose 81 MG Clopidogrel Bisulfate 75 MG Clopidogrel Bisulfate 75 MG No 1{table t} QD Clopidogre l Bisulfate 75 MG NexIUM 40 MG NexIUM 40 MG No NexIUM 40 MG Venlafaxine HCl ER 150 MG Venlafaxine HCl ER 150 MG No QD Venlafaxin e HCl ER 150 MG Simvastatin 40 MG Simvastatin 40 MG No 1{table t_in_th e_eveni ng} QD Simvastati n 40 MG Venlafaxine HCl ER 75 MG Venlafaxine HCl ER 75 MG No 1{capsu le_with _food} QD Venlafaxin e HCl ER 75 MG Levothyroxi ne Sodium 50 MCG Levothyroxi ne Sodium 50 MCG No Levothyrox ine Sodium 50 MCG Synthroid 25 MCG Synthroid 25 MCG No QD Synthroid 25 MCG Vitamin D3 28330 UNIT Vitamin D3 70885 UNIT No 1{capsu le} Vitamin D3 80454 UNIT Furosemide 20 MG Furosemide 20 MG No 1{table t} QD Furosemide 20 MG Gabapentin 100 MG Gabapentin 100 MG No Gabapentin 100 MG Aspirin 81 MG Aspirin 81 MG No Aspirin 81 MG Zofran 4 MG Zofran 4 MG No 1{table t_as_ne eded} QD Zofran 4 MG Spironolact one 25 MG Spironolact one 25 MG No 1{table t} QD Spironolac tone 25 MG Atenolol 100 MG Atenolol 100 MG No Atenolol 100 MG HYDROcodone -Acetaminop hen 5-325 MG HYDROcodone -Acetaminop hen 5-325 MG No 1{table t} QD HYDROcodon e-Acetamin ophen 5-325 MG Aspirin 81 MG Aspirin 81 MG No Aspirin 81 MG Synthroid 25 MCG Synthroid 25 MCG No QD Synthroid 25 MCG Linzess 145 mcg Linzess 145 mcg No 1{capsu le} QD Linzess 145 mcg ProAir HFA 108 (90 Base) MCG/ACT ProAir HFA 108 (90 Base) MCG/ACT No 2{puffs _as_nee ded} QID ProAir HFA 108 (90 Base) MCG/ACT HYDROcodone -Acetaminop hen 5-325 MG HYDROcodone -Acetaminop hen 5-325 MG No 1{table t_as_ne eded} QID HYDROcodon e-Acetamin ophen 5-325 MG Trelegy Ellipta 100-62.5-25 MCG/INH Trelegy Ellipta 100-62.5-25 MCG/INH No 1{puff} QD Trelegy Ellipta 100-62.5-2 5 MCG/INH Aspirin Low Dose 81 MG Aspirin Low Dose 81 MG No Aspirin Low Dose 81 MG Clopidogrel Bisulfate 75 MG Clopidogrel Bisulfate 75 MG No 1{table t} QD Clopidogre l Bisulfate 75 MG NexIUM 40 MG NexIUM 40 MG No NexIUM 40 MG Venlafaxine HCl ER 150 MG Venlafaxine HCl ER 150 MG No QD Venlafaxin e HCl ER 150 MG Simvastatin 40 MG Simvastatin 40 MG No 1{table t_in_th e_eveni ng} QD Simvastati n 40 MG Venlafaxine HCl ER 75 MG Venlafaxine HCl ER 75 MG No 1{capsu le_with _food} QD Venlafaxin e HCl ER 75 MG Levothyroxi ne Sodium 50 MCG Levothyroxi ne Sodium 50 MCG No Levothyrox ine Sodium 50 MCG Synthroid 25 MCG Synthroid 25 MCG No QD Synthroid 25 MCG Vitamin D3 47102 UNIT Vitamin D3 67707 UNIT No 1{capsu le} Vitamin D3 96092 UNIT Furosemide 20 MG Furosemide 20 MG No 1{table t} QD Furosemide 20 MG Gabapentin 100 MG Gabapentin 100 MG No Gabapentin 100 MG Aspirin 81 MG Aspirin 81 MG No Aspirin 81 MG Zofran 4 MG Zofran 4 MG No 1{table t_as_ne eded} QD Zofran 4 MG Spironolact one 25 MG Spironolact one 25 MG No 1{table t} QD Spironolac tone 25 MG Atenolol 100 MG Atenolol 100 MG No Atenolol 100 MG HYDROcodone -Acetaminop hen 5-325 MG HYDROcodone -Acetaminop hen 5-325 MG No 1{table t} QD HYDROcodon e-Acetamin ophen 5-325 MG Aspirin 81 MG Aspirin 81 MG No Aspirin 81 MG Synthroid 25 MCG Synthroid 25 MCG No QD Synthroid 25 MCG Linzess 145 mcg Linzess 145 mcg No 1{capsu le} QD Linzess 145 mcg ProAir HFA 108 (90 Base) MCG/ACT ProAir HFA 108 (90 Base) MCG/ACT No 2{puffs _as_nee ded} QID ProAir HFA 108 (90 Base) MCG/ACT HYDROcodone -Acetaminop hen 5-325 MG HYDROcodone -Acetaminop hen 5-325 MG No 1{table t_as_ne eded} QID HYDROcodon e-Acetamin ophen 5-325 MG Trelegy Ellipta 100-62.5-25 MCG/INH Trelegy Ellipta 100-62.5-25 MCG/INH No 1{puff} QD Trelegy Ellipta 100-62.5-2 5 MCG/INH Aspirin Low Dose 81 MG Aspirin Low Dose 81 MG No Aspirin Low Dose 81 MG Clopidogrel Bisulfate 75 MG Clopidogrel Bisulfate 75 MG No 1{table t} QD Clopidogre l Bisulfate 75 MG NexIUM 40 MG NexIUM 40 MG No NexIUM 40 MG Venlafaxine HCl ER 150 MG Venlafaxine HCl ER 150 MG No QD Venlafaxin e HCl ER 150 MG Simvastatin 40 MG Simvastatin 40 MG No 1{table t_in_th e_eveni ng} QD Simvastati n 40 MG Venlafaxine HCl ER 75 MG Venlafaxine HCl ER 75 MG No 1{capsu le_with _food} QD Venlafaxin e HCl ER 75 MG Levothyroxi ne Sodium 50 MCG Levothyroxi ne Sodium 50 MCG No Levothyrox ine Sodium 50 MCG Synthroid 25 MCG Synthroid 25 MCG No QD Synthroid 25 MCG Vitamin D3 68957 UNIT Vitamin D3 21434 UNIT No 1{capsu le} Vitamin D3 15132 UNIT Furosemide 20 MG Furosemide 20 MG No 1{table t} QD Furosemide 20 MG Gabapentin 100 MG Gabapentin 100 MG No Gabapentin 100 MG Aspirin 81 MG Aspirin 81 MG No Aspirin 81 MG Zofran 4 MG Zofran 4 MG No 1{table t_as_ne eded} QD Zofran 4 MG Spironolact one 25 MG Spironolact one 25 MG No 1{table t} QD Spironolac tone 25 MG Atenolol 100 MG Atenolol 100 MG No Atenolol 100 MG HYDROcodone -Acetaminop hen 5-325 MG HYDROcodone -Acetaminop hen 5-325 MG No 1{table t} QD HYDROcodon e-Acetamin ophen 5-325 MG Aspirin 81 MG Aspirin 81 MG No Aspirin 81 MG Synthroid 25 MCG Synthroid 25 MCG No QD Synthroid 25 MCG Linzess 145 mcg Linzess 145 mcg No 1{capsu le} QD Linzess 145 mcg ProAir HFA 108 (90 Base) MCG/ACT ProAir HFA 108 (90 Base) MCG/ACT No 2{puffs _as_nee ded} QID ProAir HFA 108 (90 Base) MCG/ACT HYDROcodone -Acetaminop hen 5-325 MG HYDROcodone -Acetaminop hen 5-325 MG No 1{table t_as_ne eded} QID HYDROcodon e-Acetamin ophen 5-325 MG Trelegy Ellipta 100-62.5-25 MCG/INH Trelegy Ellipta 100-62.5-25 MCG/INH No 1{puff} QD Trelegy Ellipta 100-62.5-2 5 MCG/INH Aspirin Low Dose 81 MG Aspirin Low Dose 81 MG No Aspirin Low Dose 81 MG Clopidogrel Bisulfate 75 MG Clopidogrel Bisulfate 75 MG No 1{table t} QD Clopidogre l Bisulfate 75 MG NexIUM 40 MG NexIUM 40 MG No NexIUM 40 MG Venlafaxine HCl ER 150 MG Venlafaxine HCl ER 150 MG No QD Venlafaxin e HCl ER 150 MG Simvastatin 40 MG Simvastatin 40 MG No 1{table t_in_th e_eveni ng} QD Simvastati n 40 MG Venlafaxine HCl ER 75 MG Venlafaxine HCl ER 75 MG No 1{capsu le_with _food} QD Venlafaxin e HCl ER 75 MG Levothyroxi ne Sodium 50 MCG Levothyroxi ne Sodium 50 MCG No Levothyrox ine Sodium 50 MCG Synthroid 25 MCG Synthroid 25 MCG No QD Synthroid 25 MCG Zofran 4 MG Zofran 4 MG No 1{table t_as_ne eded} QD Zofran 4 MG Synthroid 25 MCG Synthroid 25 MCG No QD Synthroid 25 MCG Venlafaxine HCl ER 75 MG Venlafaxine HCl ER 75 MG No 1{capsu le_with _food} QD Venlafaxin e HCl ER 75 MG Synthroid 25 MCG Synthroid 25 MCG No QD Synthroid 25 MCG Aspirin 81 MG Aspirin 81 MG No Aspirin 81 MG ProAir HFA 108 (90 Base) MCG/ACT ProAir HFA 108 (90 Base) MCG/ACT No 2{puffs _as_nee ded} QID ProAir HFA 108 (90 Base) MCG/ACT Gabapentin 100 MG Gabapentin 100 MG No Gabapentin 100 MG Linzess 145 mcg Linzess 145 mcg No 1{capsu le} QD Linzess 145 mcg Aspirin Low Dose 81 MG Aspirin Low Dose 81 MG No Aspirin Low Dose 81 MG Simvastatin 40 MG Simvastatin 40 MG No 1{table t_in_ e_eveni ng} QD Simvastati n 40 MG Levothyroxi ne Sodium 50 MCG Levothyroxi ne Sodium 50 MCG No Levothyrox ine Sodium 50 MCG Vitamin D3 66394 UNIT Vitamin D3 05714 UNIT No 1{capsu le} Vitamin D3 57791 UNIT NexIUM 40 MG NexIUM 40 MG No NexIUM 40 MG Furosemide 20 MG Furosemide 20 MG No 1{table t} QD Furosemide 20 MG Atenolol 100 MG Atenolol 100 MG No Atenolol 100 MG HYDROcodone -Acetaminop hen 5-325 MG HYDROcodone -Acetaminop hen 5-325 MG No 1{table t_as_ne eded} QID HYDROcodon e-Acetamin ophen 5-325 MG Trelegy Ellipta 100-62.5-25 MCG/INH Trelegy Ellipta 100-62.5-25 MCG/INH No 1{puff} QD Trelegy Ellipta 100-62.5-2 5 MCG/INH HYDROcodone -Acetaminop hen 5-325 MG HYDROcodone -Acetaminop hen 5-325 MG No 1{table t} QD HYDROcodon e-Acetamin ophen 5-325 MG Spironolact one 25 MG Spironolact one 25 MG No 1{table t} QD Spironolac tone 25 MG Aspirin 81 MG Aspirin 81 MG No Aspirin 81 MG Venlafaxine HCl ER 150 MG Venlafaxine HCl ER 150 MG No QD Venlafaxin e HCl ER 150 MG Clopidogrel Bisulfate 75 MG Clopidogrel Bisulfate 75 MG No 1{table t} QD Clopidogre l Bisulfate 75 MG Zofran 4 MG Zofran 4 MG No 1{table t_as_ne eded} QD Zofran 4 MG Synthroid 25 MCG Synthroid 25 MCG No QD Synthroid 25 MCG Venlafaxine HCl ER 75 MG Venlafaxine HCl ER 75 MG No 1{capsu le_with _food} QD Venlafaxin e HCl ER 75 MG Synthroid 25 MCG Synthroid 25 MCG No QD Synthroid 25 MCG Aspirin 81 MG Aspirin 81 MG No Aspirin 81 MG ProAir HFA 108 (90 Base) MCG/ACT ProAir HFA 108 (90 Base) MCG/ACT No 2{puffs _as_nee ded} QID ProAir HFA 108 (90 Base) MCG/ACT Gabapentin 100 MG Gabapentin 100 MG No Gabapentin 100 MG Linzess 145 mcg Linzess 145 mcg No 1{capsu le} QD Linzess 145 mcg Aspirin Low Dose 81 MG Aspirin Low Dose 81 MG No Aspirin Low Dose 81 MG Simvastatin 40 MG Simvastatin 40 MG No 1{table t_in_th e_eveni ng} QD Simvastati n 40 MG Levothyroxi ne Sodium 50 MCG Levothyroxi ne Sodium 50 MCG No Levothyrox ine Sodium 50 MCG Vitamin D3 34314 UNIT Vitamin D3 09232 UNIT No 1{capsu le} Vitamin D3 83979 UNIT NexIUM 40 MG NexIUM 40 MG No NexIUM 40 MG Furosemide 20 MG Furosemide 20 MG No 1{table t} QD Furosemide 20 MG Atenolol 100 MG Atenolol 100 MG No Atenolol 100 MG HYDROcodone -Acetaminop hen 5-325 MG HYDROcodone -Acetaminop hen 5-325 MG No 1{table t_as_ne eded} QID HYDROcodon e-Acetamin ophen 5-325 MG Trelegy Ellipta 100-62.5-25 MCG/INH Trelegy Ellipta 100-62.5-25 MCG/INH No 1{puff} QD Trelegy Ellipta 100-62.5-2 5 MCG/INH HYDROcodone -Acetaminop hen 5-325 MG HYDROcodone -Acetaminop hen 5-325 MG No 1{table t} QD HYDROcodon e-Acetamin ophen 5-325 MG Spironolact one 25 MG Spironolact one 25 MG No 1{table t} QD Spironolac tone 25 MG Aspirin 81 MG Aspirin 81 MG No Aspirin 81 MG Venlafaxine HCl ER 150 MG Venlafaxine HCl ER 150 MG No QD Venlafaxin e HCl ER 150 MG Clopidogrel Bisulfate 75 MG Clopidogrel Bisulfate 75 MG No 1{table t} QD Clopidogre l Bisulfate 75 MG Clopidogrel Bisulfate 75 MG Clopidogrel Bisulfate 75 MG No 1{table t} QD Clopidogre l Bisulfate 75 MG Atenolol 100 MG Atenolol 100 MG No Atenolol 100 MG Aspirin Low Dose 81 MG Aspirin Low Dose 81 MG No Aspirin Low Dose 81 MG Synthroid 25 MCG Synthroid 25 MCG No QD Synthroid 25 MCG Trelegy Ellipta 100-62.5-25 MCG/INH Trelegy Ellipta 100-62.5-25 MCG/INH No 1{puff} QD Trelegy Ellipta 100-62.5-2 5 MCG/INH Aspirin 81 MG Aspirin 81 MG No Aspirin 81 MG Venlafaxine HCl ER 75 MG Venlafaxine HCl ER 75 MG No 1{capsu le_with _food} QD Venlafaxin e HCl ER 75 MG NexIUM 40 MG NexIUM 40 MG No NexIUM 40 MG HYDROcodone -Acetaminop hen 5-325 MG HYDROcodone -Acetaminop hen 5-325 MG No 1{table t_as_ne eded} QID HYDROcodon e-Acetamin ophen 5-325 MG Vitamin D3 40207 UNIT Vitamin D3 14144 UNIT No 1{capsu le} Vitamin D3 77618 UNIT Furosemide 20 MG Furosemide 20 MG No 1{table t} QD Furosemide 20 MG Vitamin D3 53737 UNIT Vitamin D3 58300 UNIT No 1{capsu le} Vitamin D3 90742 UNIT Atenolol 100 MG Atenolol 100 MG No QD Atenolol 100 MG Aspirin 81 MG Aspirin 81 MG No Aspirin 81 MG Venlafaxine HCl ER 150 MG Venlafaxine HCl ER 150 MG No QD Venlafaxin e HCl ER 150 MG Venlafaxine HCl ER 150 MG Venlafaxine HCl ER 150 MG No QD Venlafaxin e HCl ER 150 MG Synthroid 25 MCG Synthroid 25 MCG No QD Synthroid 25 MCG ProAir HFA 108 (90 Base) MCG/ACT ProAir HFA 108 (90 Base) MCG/ACT No 2{puffs _as_nee ded} QID ProAir HFA 108 (90 Base) MCG/ACT Simvastatin 40 MG Simvastatin 40 MG No 1{table t_in_th e_eveni ng} QD Simvastati n 40 MG Gabapentin 100 MG Gabapentin 100 MG No Gabapentin 100 MG Zofran 4 MG Zofran 4 MG No 1{table t_as_ne eded} QD Zofran 4 MG HYDROcodone -Acetaminop hen 5-325 MG HYDROcodone -Acetaminop hen 5-325 MG No 1{table t} QD HYDROcodon e-Acetamin ophen 5-325 MG Linzess 145 mcg Linzess 145 mcg No 1{capsu le} QD Linzess 145 mcg Spironolact one 25 MG Spironolact one 25 MG No 1{table t} QD Spironolac tone 25 MG Levothyroxi ne Sodium 50 MCG Levothyroxi ne Sodium 50 MCG No Levothyrox ine Sodium 50 MCG Furosemide 20 MG Furosemide 20 MG No 1{table t} QD Furosemide 20 MG Synthroid 25 MCG Synthroid 25 MCG No QD Synthroid 25 MCG Aspirin 81 MG Aspirin 81 MG No Aspirin 81 MG Synthroid 25 MCG Synthroid 25 MCG No QD Synthroid 25 MCG NexIUM 40 MG NexIUM 40 MG No NexIUM 40 MG Trelegy Ellipta 100-62.5-25 MCG/INH Trelegy Ellipta 100-62.5-25 MCG/INH No 1{puff} QD Trelegy Ellipta 100-62.5-2 5 MCG/INH Atenolol 100 MG Atenolol 100 MG No Atenolol 100 MG ProAir HFA 108 (90 Base) MCG/ACT ProAir HFA 108 (90 Base) MCG/ACT No 2{puffs _as_nee ded} QID ProAir HFA 108 (90 Base) MCG/ACT HYDROcodone -Acetaminop hen 5-325 MG HYDROcodone -Acetaminop hen 5-325 MG No 1{table t} QD HYDROcodon e-Acetamin ophen 5-325 MG Spironolact one 25 MG Spironolact one 25 MG No 1{table t} QD Spironolac tone 25 MG Atenolol 100 MG Atenolol 100 MG No QD Atenolol 100 MG Clopidogrel Bisulfate 75 MG Clopidogrel Bisulfate 75 MG No 1{table t} QD Clopidogre l Bisulfate 75 MG Linzess 145 mcg Linzess 145 mcg No 1{capsu le} QD Linzess 145 mcg Levothyroxi ne Sodium 50 MCG Levothyroxi ne Sodium 50 MCG No Levothyrox ine Sodium 50 MCG Simvastatin 40 MG Simvastatin 40 MG No Simvastati n 40 MG Vitamin D3 91007 UNIT Vitamin D3 18453 UNIT No 1{capsu le} Vitamin D3 42610 UNIT Venlafaxine HCl ER 150 MG Venlafaxine HCl ER 150 MG No QD Venlafaxin e HCl ER 150 MG Venlafaxine HCl ER 150 MG Venlafaxine HCl ER 150 MG No QD Venlafaxin e HCl ER 150 MG Zofran 4 MG Zofran 4 MG No 1{table t_as_ne eded} QD Zofran 4 MG Aspirin Low Dose 81 MG Aspirin Low Dose 81 MG No Aspirin Low Dose 81 MG HYDROcodone -Acetaminop hen 5-325 MG HYDROcodone -Acetaminop hen 5-325 MG No 1{table t_as_ne eded} QID HYDROcodon e-Acetamin ophen 5-325 MG Gabapentin 100 MG Gabapentin 100 MG No Gabapentin 100 MG Venlafaxine HCl ER 75 MG Venlafaxine HCl ER 75 MG No 1{capsu le_with _food} QD Venlafaxin e HCl ER 75 MG Aspirin 81 MG Aspirin 81 MG No Aspirin 81 MG Synthroid 25 MCG Synthroid 25 MCG No QD Synthroid 25 MCG Aspirin 81 MG Aspirin 81 MG No Aspirin 81 MG Atenolol 100 MG Atenolol 100 MG No Atenolol 100 MG Furosemide 20 MG Furosemide 20 MG No 1{table t} QD Furosemide 20 MG Simvastatin 40 MG Simvastatin 40 MG No Simvastati n 40 MG Atenolol 100 MG Atenolol 100 MG No QD Atenolol 100 MG Vitamin D3 00482 UNIT Vitamin D3 69478 UNIT No 1{capsu le} Vitamin D3 76573 UNIT Simvastatin 40 MG Simvastatin 40 MG No 1{table t_in_th e_eveni ng} QD Simvastati n 40 MG Clopidogrel Bisulfate 75 MG Clopidogrel Bisulfate 75 MG No 1{table t} QD Clopidogre l Bisulfate 75 MG Synthroid 25 MCG Synthroid 25 MCG No QD Synthroid 25 MCG Vitamin D3 77381 UNIT Vitamin D3 45612 UNIT No 1{capsu le} Vitamin D3 77570 UNIT Venlafaxine HCl ER 75 MG Venlafaxine HCl ER 75 MG No 1{capsu le_with _food} QD Venlafaxin e HCl ER 75 MG Venlafaxine HCl ER 150 MG Venlafaxine HCl ER 150 MG No QD Venlafaxin e HCl ER 150 MG Aspirin 81 MG Aspirin 81 MG No Aspirin 81 MG NexIUM 40 MG NexIUM 40 MG No NexIUM 40 MG Aspirin Low Dose 81 MG Aspirin Low Dose 81 MG No Aspirin Low Dose 81 MG Venlafaxine HCl ER 150 MG Venlafaxine HCl ER 150 MG No QD Venlafaxin e HCl ER 150 MG ProAir HFA 108 (90 Base) MCG/ACT ProAir HFA 108 (90 Base) MCG/ACT No 2{puffs _as_nee ded} QID ProAir HFA 108 (90 Base) MCG/ACT Trelegy Ellipta 100-62.5-25 MCG/INH Trelegy Ellipta 100-62.5-25 MCG/INH No 1{puff} QD Trelegy Ellipta 100-62.5-2 5 MCG/INH HYDROcodone -Acetaminop hen 5-325 MG HYDROcodone -Acetaminop hen 5-325 MG No 1{table t_as_ne eded} QID HYDROcodon e-Acetamin ophen 5-325 MG Gabapentin 100 MG Gabapentin 100 MG No Gabapentin 100 MG Linzess 145 mcg Linzess 145 mcg No 1{capsu le} QD Linzess 145 mcg Spironolact one 25 MG Spironolact one 25 MG No 1{table t} QD Spironolac tone 25 MG Zofran 4 MG Zofran 4 MG No 1{table t_as_ne eded} QD Zofran 4 MG HYDROcodone -Acetaminop hen 5-325 MG HYDROcodone -Acetaminop hen 5-325 MG No 1{table t} QD HYDROcodon e-Acetamin ophen 5-325 MG Levothyroxi ne Sodium 50 MCG Levothyroxi ne Sodium 50 MCG No Levothyrox ine Sodium 50 MCG Synthroid 25 MCG Synthroid 25 MCG No QD Synthroid 25 MCG Aspirin 81 MG Aspirin 81 MG No Aspirin 81 MG HYDROcodone -Acetaminop hen 5-325 MG HYDROcodone -Acetaminop hen 5-325 MG No 1{table t_as_ne eded} QID HYDROcodon e-Acetamin ophen 5-325 MG Furosemide 20 MG Furosemide 20 MG No 1{table t} QD Furosemide 20 MG Simvastatin 40 MG Simvastatin 40 MG No Simvastati n 40 MG Synthroid 25 MCG Synthroid 25 MCG No QD Synthroid 25 MCG Vitamin D3 47786 UNIT Vitamin D3 89797 UNIT No 1{capsu le} Vitamin D3 10082 UNIT Simvastatin 40 MG Simvastatin 40 MG No 1{table t_in_th e_eveni ng} QD Simvastati n 40 MG Clopidogrel Bisulfate 75 MG Clopidogrel Bisulfate 75 MG No 1{table t} QD Clopidogre l Bisulfate 75 MG Venlafaxine HCl ER 75 MG Venlafaxine HCl ER 75 MG No 1{capsu le_with _food} QD Venlafaxin e HCl ER 75 MG Gabapentin 100 MG Gabapentin 100 MG No Gabapentin 100 MG Venlafaxine HCl ER 150 MG Venlafaxine HCl ER 150 MG No QD Venlafaxin e HCl ER 150 MG Venlafaxine HCl ER 150 MG Venlafaxine HCl ER 150 MG No QD Venlafaxin e HCl ER 150 MG NexIUM 40 MG NexIUM 40 MG No NexIUM 40 MG Aspirin Low Dose 81 MG Aspirin Low Dose 81 MG No Aspirin Low Dose 81 MG Vitamin D3 25128 UNIT Vitamin D3 85188 UNIT No 1{capsu le} Vitamin D3 50502 UNIT ProAir HFA 108 (90 Base) MCG/ACT ProAir HFA 108 (90 Base) MCG/ACT No 2{puffs _as_nee ded} QID ProAir HFA 108 (90 Base) MCG/ACT Trelegy Ellipta 100-62.5-25 MCG/INH Trelegy Ellipta 100-62.5-25 MCG/INH No 1{puff} QD Trelegy Ellipta 100-62.5-2 5 MCG/INH Aspirin 81 MG Aspirin 81 MG No Aspirin 81 MG Atenolol 100 MG Atenolol 100 MG No Atenolol 100 MG Linzess 145 mcg Linzess 145 mcg No 1{capsu le} QD Linzess 145 mcg Spironolact one 25 MG Spironolact one 25 MG No 1{table t} QD Spironolac tone 25 MG Zofran 4 MG Zofran 4 MG No 1{table t_as_ne eded} QD Zofran 4 MG HYDROcodone -Acetaminop hen 5-325 MG HYDROcodone -Acetaminop hen 5-325 MG No 1{table t} QD HYDROcodon e-Acetamin ophen 5-325 MG Levothyroxi ne Sodium 50 MCG Levothyroxi ne Sodium 50 MCG No Levothyrox ine Sodium 50 MCG Levothyroxi ne Sodium 50 MCG Levothyroxi ne Sodium 50 MCG No Levothyrox ine Sodium 50 MCG Linzess 145 mcg Linzess 145 mcg No 1{capsu le} QD Linzess 145 mcg Synthroid 25 MCG Synthroid 25 MCG No QD Synthroid 25 MCG Zofran 4 MG Zofran 4 MG No 1{table t_as_ne eded} QD Zofran 4 MG Vitamin D3 38836 UNIT Vitamin D3 20563 UNIT No 1{capsu le} Vitamin D3 86845 UNIT Spironolact one 25 MG Spironolact one 25 MG No 1{table t} QD Spironolac tone 25 MG Venlafaxine HCl ER 150 MG Venlafaxine HCl ER 150 MG No QD Venlafaxin e HCl ER 150 MG HYDROcodone -Acetaminop hen 5-325 MG HYDROcodone -Acetaminop hen 5-325 MG No 1{table t} QD HYDROcodon e-Acetamin ophen 5-325 MG Simvastatin 40 MG Simvastatin 40 MG No 1{table t_in_th e_eveni ng} QD Simvastati n 40 MG Vitamin D3 36447 UNIT Vitamin D3 73334 UNIT No 1{capsu le} Vitamin D3 13461 UNIT Clopidogrel Bisulfate 75 MG Clopidogrel Bisulfate 75 MG No 1{table t} QD Clopidogre l Bisulfate 75 MG Venlafaxine HCl ER 150 MG Venlafaxine HCl ER 150 MG No QD Venlafaxin e HCl ER 150 MG Simvastatin 40 MG Simvastatin 40 MG No Simvastati n 40 MG Aspirin 81 MG Aspirin 81 MG No Aspirin 81 MG NexIUM 40 MG NexIUM 40 MG No NexIUM 40 MG ProAir HFA 108 (90 Base) MCG/ACT ProAir HFA 108 (90 Base) MCG/ACT No 2{puffs _as_nee ded} QID ProAir HFA 108 (90 Base) MCG/ACT Furosemide 20 MG Furosemide 20 MG No 1{table t} QD Furosemide 20 MG Atenolol 100 MG Atenolol 100 MG No Atenolol 100 MG Synthroid 25 MCG Synthroid 25 MCG No QD Synthroid 25 MCG Trelegy Ellipta 100-62.5-25 MCG/INH Trelegy Ellipta 100-62.5-25 MCG/INH No 1{puff} QD Trelegy Ellipta 100-62.5-2 5 MCG/INH Gabapentin 100 MG Gabapentin 100 MG No Gabapentin 100 MG Venlafaxine HCl ER 75 MG Venlafaxine HCl ER 75 MG No 1{capsu le_with _food} QD Venlafaxin e HCl ER 75 MG Aspirin Low Dose 81 MG Aspirin Low Dose 81 MG No Aspirin Low Dose 81 MG HYDROcodone -Acetaminop hen 5-325 MG HYDROcodone -Acetaminop hen 5-325 MG No 1{table t_as_ne eded} QID HYDROcodon e-Acetamin ophen 5-325 MG Aspirin 81 MG Aspirin 81 MG No Aspirin 81 MG Levothyroxi ne Sodium 50 MCG Levothyroxi ne Sodium 50 MCG No Levothyrox ine Sodium 50 MCG HYDROcodone -Acetaminop hen 5-325 MG HYDROcodone -Acetaminop hen 5-325 MG No 1{table t} QD HYDROcodon e-Acetamin ophen 5-325 MG Synthroid 25 MCG Synthroid 25 MCG No QD Synthroid 25 MCG Linzess 145 mcg Linzess 145 mcg No 1{capsu le} QD Linzess 145 mcg Vitamin D3 10779 UNIT Vitamin D3 18455 UNIT No 1{capsu le} Vitamin D3 70668 UNIT Venlafaxine HCl ER 150 MG Venlafaxine HCl ER 150 MG No QD Venlafaxin e HCl ER 150 MG Spironolact one 25 MG Spironolact one 25 MG No 1{table t} QD Spironolac tone 25 MG Simvastatin 40 MG Simvastatin 40 MG No 1{table t_in_th e_eveni ng} QD Simvastati n 40 MG Clopidogrel Bisulfate 75 MG Clopidogrel Bisulfate 75 MG No 1{table t} QD Clopidogre l Bisulfate 75 MG Trelegy Ellipta 100-62.5-25 MCG/INH Trelegy Ellipta 100-62.5-25 MCG/INH No 1{puff} QD Trelegy Ellipta 100-62.5-2 5 MCG/INH Gabapentin 100 MG Gabapentin 100 MG No Gabapentin 100 MG ProAir HFA 108 (90 Base) MCG/ACT ProAir HFA 108 (90 Base) MCG/ACT No 2{puffs _as_nee ded} QID ProAir HFA 108 (90 Base) MCG/ACT Aspirin 81 MG Aspirin 81 MG No Aspirin 81 MG Atenolol 100 MG Atenolol 100 MG No Atenolol 100 MG Vitamin D3 75877 UNIT Vitamin D3 09164 UNIT No 1{capsu le} Vitamin D3 07718 UNIT Furosemide 20 MG Furosemide 20 MG No 1{table t} QD Furosemide 20 MG Zofran 4 MG Zofran 4 MG No 1{table t_as_ne eded} QD Zofran 4 MG Venlafaxine HCl ER 150 MG Venlafaxine HCl ER 150 MG No QD Venlafaxin e HCl ER 150 MG Simvastatin 40 MG Simvastatin 40 MG No Simvastati n 40 MG NexIUM 40 MG NexIUM 40 MG No NexIUM 40 MG Aspirin Low Dose 81 MG Aspirin Low Dose 81 MG No Aspirin Low Dose 81 MG HYDROcodone -Acetaminop hen 5-325 MG HYDROcodone -Acetaminop hen 5-325 MG No 1{table t_as_ne eded} QID HYDROcodon e-Acetamin ophen 5-325 MG Venlafaxine HCl ER 75 MG Venlafaxine HCl ER 75 MG No 1{capsu le_with _food} QD Venlafaxin e HCl ER 75 MG Aspirin 81 MG Aspirin 81 MG No Aspirin 81 MG Levothyroxi ne Sodium 25 MCG Levothyroxi ne Sodium 25 MCG No Levothyrox ine Sodium 25 MCG Trelegy Ellipta 100-62.5-25 MCG/INH Trelegy Ellipta 100-62.5-25 MCG/INH No 1{puff} QD Trelegy Ellipta 100-62.5-2 5 MCG/INH Venlafaxine HCl ER 150 MG Venlafaxine HCl ER 150 MG No QD Venlafaxin e HCl ER 150 MG Clopidogrel Bisulfate 75 MG Clopidogrel Bisulfate 75 MG No 1{table t} QD Clopidogre l Bisulfate 75 MG HYDROcodone -Acetaminop hen 5-325 MG HYDROcodone -Acetaminop hen 5-325 MG No 1{table t} QD HYDROcodon e-Acetamin ophen 5-325 MG HYDROcodone -Acetaminop hen 5-325 MG HYDROcodone -Acetaminop hen 5-325 MG No 1{table t_as_ne eded} QID HYDROcodon e-Acetamin ophen 5-325 MG Vitamin D3 76698 UNIT Vitamin D3 28856 UNIT No 1{capsu le} Vitamin D3 92938 UNIT Levothyroxi ne Sodium 50 MCG Levothyroxi ne Sodium 50 MCG No Levothyrox ine Sodium 50 MCG Aspirin 81 MG Aspirin 81 MG No Aspirin 81 MG Simvastatin 40 MG Simvastatin 40 MG No Simvastati n 40 MG Atenolol 100 MG Atenolol 100 MG No Atenolol 100 MG Venlafaxine HCl ER 75 MG Venlafaxine HCl ER 75 MG No 1{capsu le_with _food} QD Venlafaxin e HCl ER 75 MG NexIUM 40 MG NexIUM 40 MG No NexIUM 40 MG Simvastatin 40 MG Simvastatin 40 MG No 1{table t_in_ e_eveni ng} QD Simvastati n 40 MG ProAir HFA 108 (90 Base) MCG/ACT ProAir HFA 108 (90 Base) MCG/ACT No 2{puffs _as_nee ded} QID ProAir HFA 108 (90 Base) MCG/ACT Vitamin D3 30122 UNIT Vitamin D3 65820 UNIT No 1{capsu le} Vitamin D3 69958 UNIT Furosemide 20 MG Furosemide 20 MG No 1{table t} QD Furosemide 20 MG Spironolact one 25 MG Spironolact one 25 MG No 1{table t} QD Spironolac tone 25 MG Synthroid 25 MCG Synthroid 25 MCG No QD Synthroid 25 MCG Aspirin 81 MG Aspirin 81 MG No Aspirin 81 MG Levothyroxi ne Sodium 25 MCG Levothyroxi ne Sodium 25 MCG No Levothyrox ine Sodium 25 MCG Aspirin Low Dose 81 MG Aspirin Low Dose 81 MG No Aspirin Low Dose 81 MG Linzess 145 mcg Linzess 145 mcg No 1{capsu le} QD Linzess 145 mcg Zofran 4 MG Zofran 4 MG No 1{table t_as_ne eded} QD Zofran 4 MG Gabapentin 100 MG Gabapentin 100 MG No Gabapentin 100 MG Venlafaxine HCl ER 150 MG Venlafaxine HCl ER 150 MG No QD Venlafaxin e HCl ER 150 MG Vitamin D3 96379 UNIT Vitamin D3 56748 UNIT No 1{capsu le} Vitamin D3 03782 UNIT Zofran 4 MG Zofran 4 MG No 1{table t_as_ne eded} TID Zofran 4 MG Zofran 4 MG Zofran 4 MG No 1{table t_as_ne eded} QD Zofran 4 MG Levothyroxi ne Sodium 25 MCG Levothyroxi ne Sodium 25 MCG No Levothyrox ine Sodium 25 MCG Aspirin Low Dose 81 MG Aspirin Low Dose 81 MG No Aspirin Low Dose 81 MG Venlafaxine HCl ER 150 MG Venlafaxine HCl ER 150 MG No QD Venlafaxin e HCl ER 150 MG Venlafaxine HCl ER 150 MG Venlafaxine HCl ER 150 MG No QD Venlafaxin e HCl ER 150 MG Aspirin 81 MG Aspirin 81 MG No Aspirin 81 MG Simvastatin 40 MG Simvastatin 40 MG No 1{table t_in_ e_eveni ng} QD Simvastati n 40 MG Vitamin D3 52289 UNIT Vitamin D3 45637 UNIT No 1{capsu le} Vitamin D3 44530 UNIT Synthroid 25 MCG Synthroid 25 MCG No QD Synthroid 25 MCG Levothyroxi ne Sodium 50 MCG Levothyroxi ne Sodium 50 MCG No Levothyrox ine Sodium 50 MCG Hydrocodone -Acetaminop hen 5-325 MG Hydrocodone -Acetaminop hen 5-325 MG No 1{table t_as_ne eded} QID Hydrocodon e-Acetamin ophen 5-325 MG NexIUM 40 MG NexIUM 40 MG No NexIUM 40 MG Simvastatin 40 MG Simvastatin 40 MG No Simvastati n 40 MG HYDROcodone -Acetaminop hen 5-325 MG HYDROcodone -Acetaminop hen 5-325 MG No 1{table t_as_ne eded} QID HYDROcodon e-Acetamin ophen 5-325 MG Aspirin 81 MG Aspirin 81 MG No Aspirin 81 MG ProAir HFA 108 (90 Base) MCG/ACT ProAir HFA 108 (90 Base) MCG/ACT No 2{puffs _as_nee ded} QID ProAir HFA 108 (90 Base) MCG/ACT Venlafaxine HCl ER 75 MG Venlafaxine HCl ER 75 MG No 1{capsu le_with _food} QD Venlafaxin e HCl ER 75 MG Gabapentin 100 MG Gabapentin 100 MG No Gabapentin 100 MG Spironolact one 25 MG Spironolact one 25 MG No 1{table t} QD Spironolac tone 25 MG Atenolol 100 MG Atenolol 100 MG No Atenolol 100 MG HYDROcodone -Acetaminop hen 5-325 MG HYDROcodone -Acetaminop hen 5-325 MG No 1{table t} QD HYDROcodon e-Acetamin ophen 5-325 MG Spironolact one 25 MG Spironolact one 25 MG No 1{table t} QD Spironolac tone 25 MG Trelegy Ellipta 100-62.5-25 MCG/INH Trelegy Ellipta 100-62.5-25 MCG/INH No 1{puff} QD Trelegy Ellipta 100-62.5-2 5 MCG/INH Atenolol 100 MG Atenolol 100 MG No QD Atenolol 100 MG Clopidogrel Bisulfate 75 MG Clopidogrel Bisulfate 75 MG No 1{table t} QD Clopidogre l Bisulfate 75 MG Furosemide 20 MG Furosemide 20 MG No 1{table t} QD Furosemide 20 MG Linzess 145 mcg Linzess 145 mcg No 1{capsu le} QD Linzess 145 mcg HYDROcodone -Acetaminop hen 5-325 MG HYDROcodone -Acetaminop hen 5-325 MG No 1{table t} QD HYDROcodon e-Acetamin ophen 5-325 MG Levothyroxi ne Sodium 50 MCG Levothyroxi ne Sodium 50 MCG No Levothyrox ine Sodium 50 MCG Linzess 145 mcg Linzess 145 mcg No 1{capsu le} QD Linzess 145 mcg Atenolol 100 MG Atenolol 100 MG No Atenolol 100 MG ProAir HFA 108 (90 Base) MCG/ACT ProAir HFA 108 (90 Base) MCG/ACT No 2{puffs _as_nee ded} QID ProAir HFA 108 (90 Base) MCG/ACT Simvastatin 40 MG Simvastatin 40 MG No Simvastati n 40 MG Synthroid 25 MCG Synthroid 25 MCG No QD Synthroid 25 MCG Levothyroxi ne Sodium 25 MCG Levothyroxi ne Sodium 25 MCG No Levothyrox ine Sodium 25 MCG Synthroid 25 MCG Synthroid 25 MCG No QD Synthroid 25 MCG Zofran 4 MG Zofran 4 MG No 1{table t_as_ne eded} QD Zofran 4 MG Trelegy Ellipta 100-62.5-25 MCG/INH Trelegy Ellipta 100-62.5-25 MCG/INH No 1{puff} QD Trelegy Ellipta 100-62.5-2 5 MCG/INH Venlafaxine HCl ER 150 MG Venlafaxine HCl ER 150 MG No QD Venlafaxin e HCl ER 150 MG Gabapentin 100 MG Gabapentin 100 MG No Gabapentin 100 MG Venlafaxine HCl ER 150 MG Venlafaxine HCl ER 150 MG No QD Venlafaxin e HCl ER 150 MG Vitamin D3 55488 UNIT Vitamin D3 10374 UNIT No 1{capsu le} Vitamin D3 82696 UNIT Vitamin D3 85800 UNIT Vitamin D3 41600 UNIT No 1{capsu le} Vitamin D3 70943 UNIT NexIUM 40 MG NexIUM 40 MG No NexIUM 40 MG Aspirin 81 MG Aspirin 81 MG No Aspirin 81 MG Spironolact one 25 MG Spironolact one 25 MG No 1{table t} QD Spironolac tone 25 MG Gabapentin 100 MG Gabapentin 100 MG No Gabapentin 100 MG Furosemide 20 MG Furosemide 20 MG No 1{table t} QD Furosemide 20 MG Clopidogrel Bisulfate 75 MG Clopidogrel Bisulfate 75 MG No 1{table t} QD Clopidogre l Bisulfate 75 MG HYDROcodone -Acetaminop hen 5-325 MG HYDROcodone -Acetaminop hen 5-325 MG No 1{table t_as_ne eded} QID HYDROcodon e-Acetamin ophen 5-325 MG Aspirin 81 MG Aspirin 81 MG No Aspirin 81 MG Simvastatin 40 MG Simvastatin 40 MG No 1{table t_in_ e_eveni ng} QD Simvastati n 40 MG Venlafaxine HCl ER 75 MG Venlafaxine HCl ER 75 MG No 1{capsu le_with _food} QD Venlafaxin e HCl ER 75 MG Aspirin Low Dose 81 MG Aspirin Low Dose 81 MG No Aspirin Low Dose 81 MG Atenolol 100 MG Atenolol 100 MG No QD Atenolol 100 MG HYDROcodone -Acetaminop hen 5-325 MG HYDROcodone -Acetaminop hen 5-325 MG No 1{table t} QD HYDROcodon e-Acetamin ophen 5-325 MG Simvastatin 40 MG Simvastatin 40 MG No 1{table t_in e_eveni ng} QD Simvastati n 40 MG Levothyroxi ne Sodium 25 MCG Levothyroxi ne Sodium 25 MCG No Levothyrox ine Sodium 25 MCG Linzess 145 mcg Linzess 145 mcg No 1{capsu le} QD Linzess 145 mcg Levothyroxi ne Sodium 50 MCG Levothyroxi ne Sodium 50 MCG No Levothyrox ine Sodium 50 MCG ProAir HFA 108 (90 Base) MCG/ACT ProAir HFA 108 (90 Base) MCG/ACT No 2{puffs _as_nee ded} QID ProAir HFA 108 (90 Base) MCG/ACT Synthroid 25 MCG Synthroid 25 MCG No QD Synthroid 25 MCG Simvastatin 40 MG Simvastatin 40 MG No Simvastati n 40 MG Zofran 4 MG Zofran 4 MG No 1{table t_as_ne eded} QD Zofran 4 MG NexIUM 40 MG NexIUM 40 MG No NexIUM 40 MG Trelegy Ellipta 100-62.5-25 MCG/INH Trelegy Ellipta 100-62.5-25 MCG/INH No 1{puff} QD Trelegy Ellipta 100-62.5-2 5 MCG/INH Furosemide 20 MG Furosemide 20 MG No 1{table t} QD Furosemide 20 MG Nexium 40 MG Nexium 40 MG No Nexium 40 MG Clopidogrel Bisulfate 75 MG Clopidogrel Bisulfate 75 MG No 1{table t} QD Clopidogre l Bisulfate 75 MG Vitamin D3 07209 UNIT Vitamin D3 01907 UNIT No 1{capsu le} Vitamin D3 54237 UNIT HYDROcodone -Acetaminop hen 5-325 MG HYDROcodone -Acetaminop hen 5-325 MG No 1{table t_as_ne eded} QID HYDROcodon e-Acetamin ophen 5-325 MG Venlafaxine HCl ER 150 MG Venlafaxine HCl ER 150 MG No QD Venlafaxin e HCl ER 150 MG Aspirin 81 MG Aspirin 81 MG No Aspirin 81 MG Spironolact one 25 MG Spironolact one 25 MG No 1{table t} QD Spironolac tone 25 MG Vitamin D3 36881 UNIT Vitamin D3 45419 UNIT No 1{capsu le} Vitamin D3 57705 UNIT Atenolol 100 MG Atenolol 100 MG No Atenolol 100 MG Venlafaxine HCl ER 150 MG Venlafaxine HCl ER 150 MG No QD Venlafaxin e HCl ER 150 MG Gabapentin 100 MG Gabapentin 100 MG No Gabapentin 100 MG Aspirin 81 MG Aspirin 81 MG No Aspirin 81 MG Venlafaxine HCl ER 75 MG Venlafaxine HCl ER 75 MG No 1{capsu le_with _food} QD Venlafaxin e HCl ER 75 MG Aspirin 81 MG Aspirin 81 MG No Aspirin 81 MG Simvastatin 40 MG Simvastatin 40 MG No 1{table t_in_th e_eveni ng} QD Simvastati n 40 MG Aspirin Low Dose 81 MG Aspirin Low Dose 81 MG No Aspirin Low Dose 81 MG HYDROcodone -Acetaminop hen 5-325 MG HYDROcodone -Acetaminop hen 5-325 MG No 1{table t} QD HYDROcodon e-Acetamin ophen 5-325 MG Simvastatin 40 MG Simvastatin 40 MG No Simvastati n 40 MG Atenolol 100 MG Atenolol 100 MG No QD Atenolol 100 MG Linzess 145 mcg Linzess 145 mcg No 1{capsu le} QD Linzess 145 mcg Levothyroxi ne Sodium 50 MCG Levothyroxi ne Sodium 50 MCG No Levothyrox ine Sodium 50 MCG ProAir HFA 108 (90 Base) MCG/ACT ProAir HFA 108 (90 Base) MCG/ACT No 2{puffs _as_nee ded} QID ProAir HFA 108 (90 Base) MCG/ACT Synthroid 25 MCG Synthroid 25 MCG No QD Synthroid 25 MCG Levothyroxi ne Sodium 25 MCG Levothyroxi ne Sodium 25 MCG No Levothyrox ine Sodium 25 MCG Zofran 4 MG Zofran 4 MG No 1{table t_as_ne eded} QD Zofran 4 MG NexIUM 40 MG NexIUM 40 MG No NexIUM 40 MG Trelegy Ellipta 100-62.5-25 MCG/INH Trelegy Ellipta 100-62.5-25 MCG/INH No 1{puff} QD Trelegy Ellipta 100-62.5-2 5 MCG/INH Furosemide 20 MG Furosemide 20 MG No 1{table t} QD Furosemide 20 MG Levothyroxi ne Sodium 50 MCG Levothyroxi ne Sodium 50 MCG No Levothyrox ine Sodium 50 MCG Clopidogrel Bisulfate 75 MG Clopidogrel Bisulfate 75 MG No 1{table t} QD Clopidogre l Bisulfate 75 MG Vitamin D3 24436 UNIT Vitamin D3 03541 UNIT No 1{capsu le} Vitamin D3 05970 UNIT HYDROcodone -Acetaminop hen 5-325 MG HYDROcodone -Acetaminop hen 5-325 MG No 1{table t_as_ne eded} QID HYDROcodon e-Acetamin ophen 5-325 MG Venlafaxine HCl ER 150 MG Venlafaxine HCl ER 150 MG No QD Venlafaxin e HCl ER 150 MG Aspirin 81 MG Aspirin 81 MG No Aspirin 81 MG Spironolact one 25 MG Spironolact one 25 MG No 1{table t} QD Spironolac tone 25 MG Vitamin D3 23650 UNIT Vitamin D3 93753 UNIT No 1{capsu le} Vitamin D3 86326 UNIT Atenolol 100 MG Atenolol 100 MG No Atenolol 100 MG Venlafaxine HCl ER 150 MG Venlafaxine HCl ER 150 MG No QD Venlafaxin e HCl ER 150 MG Gabapentin 100 MG Gabapentin 100 MG No Gabapentin 100 MG Clopidogrel Bisulfate 75 MG Clopidogrel Bisulfate 75 MG No 1{table t} QD Clopidogre l Bisulfate 75 MG Venlafaxine HCl ER 75 MG Venlafaxine HCl ER 75 MG No 1{capsu le_with _food} QD Venlafaxin e HCl ER 75 MG Aspirin 81 MG Aspirin 81 MG No Aspirin 81 MG Simvastatin 40 MG Simvastatin 40 MG No 1{table t_in_th e_eveni ng} QD Simvastati n 40 MG Aspirin Low Dose 81 MG Aspirin Low Dose 81 MG No Aspirin Low Dose 81 MG Vitamin D3 74076 UNIT Vitamin D3 72365 UNIT No 1{capsu le} Vitamin D3 15684 UNIT Venlafaxine HCl ER 150 MG Venlafaxine HCl ER 150 MG No QD Venlafaxin e HCl ER 150 MG Simvastatin 40 MG Simvastatin 40 MG No Simvastati n 40 MG Clopidogrel Bisulfate 75 MG Clopidogrel Bisulfate 75 MG No 1{table t} QD Clopidogre l Bisulfate 75 MG Venlafaxine HCl ER 75 MG Venlafaxine HCl ER 75 MG No QD Venlafaxin e HCl ER 75 MG HYDROcodone -Acetaminop hen 5-325 MG HYDROcodone -Acetaminop hen 5-325 MG No 1{table t_as_ne eded} QID HYDROcodon e-Acetamin ophen 5-325 MG Trelegy Ellipta 100-62.5-25 MCG/INH Trelegy Ellipta 100-62.5-25 MCG/INH No 1{puff} QD Trelegy Ellipta 100-62.5-2 5 MCG/INH Aspirin 81 MG Aspirin 81 MG No Aspirin 81 MG Levothyroxi ne Sodium 25 MCG Levothyroxi ne Sodium 25 MCG No Levothyrox ine Sodium 25 MCG Venlafaxine HCl ER 150 MG Venlafaxine HCl ER 150 MG No QD Venlafaxin e HCl ER 150 MG Levothyroxi ne Sodium 50 MCG Levothyroxi ne Sodium 50 MCG No Levothyrox ine Sodium 50 MCG Zofran 4 MG Zofran 4 MG No 1{table t_as_ne eded} QD Zofran 4 MG Aspirin Low Dose 81 MG Aspirin Low Dose 81 MG No Aspirin Low Dose 81 MG Atenolol 100 MG Atenolol 100 MG No Atenolol 100 MG HYDROcodone -Acetaminop hen 5-325 MG HYDROcodone -Acetaminop hen 5-325 MG No 1{table t} QD HYDROcodon e-Acetamin ophen 5-325 MG Atenolol 100 MG Atenolol 100 MG No Atenolol 100 MG Venlafaxine HCl ER 75 MG Venlafaxine HCl ER 75 MG No 1{capsu le_with _food} QD Venlafaxin e HCl ER 75 MG ProAir HFA 108 (90 Base) MCG/ACT ProAir HFA 108 (90 Base) MCG/ACT No 2{puffs _as_nee ded} QID ProAir HFA 108 (90 Base) MCG/ACT Synthroid 25 MCG Synthroid 25 MCG No QD Synthroid 25 MCG Linzess 145 mcg Linzess 145 mcg No 1{capsu le} QD Linzess 145 mcg Gabapentin 100 MG Gabapentin 100 MG No Gabapentin 100 MG Spironolact one 25 MG Spironolact one 25 MG No 1{table t} QD Spironolac tone 25 MG NexIUM 40 MG NexIUM 40 MG No NexIUM 40 MG Furosemide 20 MG Furosemide 20 MG No 1{table t} QD Furosemide 20 MG Aspirin 81 MG Aspirin 81 MG No Aspirin 81 MG Simvastatin 40 MG Simvastatin 40 MG No 1{table t_in_th e_eveni ng} QD Simvastati n 40 MG Aspirin 81 MG Aspirin 81 MG No Aspirin 81 MG Vitamin D3 54441 UNIT Vitamin D3 73250 UNIT No 1{capsu le} Vitamin D3 49715 UNIT Clopidogrel Bisulfate 75 MG Clopidogrel Bisulfate 75 MG No 1{table t} QD Clopidogre l Bisulfate 75 MG NexIUM 40 MG NexIUM 40 MG No NexIUM 40 MG Levothyroxi ne Sodium 50 MCG Levothyroxi ne Sodium 50 MCG No Levothyrox ine Sodium 50 MCG Vitamin D3 44833 UNIT Vitamin D3 41402 UNIT No 1{capsu le} Vitamin D3 14761 UNIT Trelegy Ellipta 100-62.5-25 MCG/INH Trelegy Ellipta 100-62.5-25 MCG/INH No 1{puff} QD Trelegy Ellipta 100-62.5-2 5 MCG/INH ProAir HFA 108 (90 Base) MCG/ACT ProAir HFA 108 (90 Base) MCG/ACT No 2{puffs _as_nee ded} QID ProAir HFA 108 (90 Base) MCG/ACT HYDROcodone -Acetaminop hen 5-325 MG HYDROcodone -Acetaminop hen 5-325 MG No 1{table t_as_ne eded} QID HYDROcodon e-Acetamin ophen 5-325 MG Aspirin 81 MG Aspirin 81 MG No Aspirin 81 MG Aspirin 81 MG Aspirin 81 MG No Aspirin 81 MG Levothyroxi ne Sodium 25 MCG Levothyroxi ne Sodium 25 MCG No Levothyrox ine Sodium 25 MCG Vitamin D3 33543 UNIT Vitamin D3 19989 UNIT No 1{capsu le} Vitamin D3 06190 UNIT ProAir HFA 108 (90 Base) MCG/ACT ProAir HFA 108 (90 Base) MCG/ACT No 2{puffs _as_nee ded} QID ProAir HFA 108 (90 Base) MCG/ACT HYDROcodone -Acetaminop hen 5-325 MG HYDROcodone -Acetaminop hen 5-325 MG No 1{table t} QD HYDROcodon e-Acetamin ophen 5-325 MG Venlafaxine HCl ER 75 MG Venlafaxine HCl ER 75 MG No 1{capsu le_with _food} QD Venlafaxin e HCl ER 75 MG Venlafaxine HCl ER 150 MG Venlafaxine HCl ER 150 MG No QD Venlafaxin e HCl ER 150 MG Spironolact one 25 MG Spironolact one 25 MG No 1{table t} QD Spironolac tone 25 MG Furosemide 20 MG Furosemide 20 MG No 1{table t} QD Furosemide 20 MG Aspirin Low Dose 81 MG Aspirin Low Dose 81 MG No Aspirin Low Dose 81 MG Furosemide 20 MG Furosemide 20 MG No 1{table t} QD Furosemide 20 MG Zofran 4 MG Zofran 4 MG No 1{table t_as_ne eded} QD Zofran 4 MG Venlafaxine HCl ER 150 MG Venlafaxine HCl ER 150 MG No QD Venlafaxin e HCl ER 150 MG Linzess 145 mcg Linzess 145 mcg No 1{capsu le} QD Linzess 145 mcg Atenolol 100 MG Atenolol 100 MG No Atenolol 100 MG Synthroid 25 MCG Synthroid 25 MCG No QD Synthroid 25 MCG Simvastatin 40 MG Simvastatin 40 MG No Simvastati n 40 MG Gabapentin 100 MG Gabapentin 100 MG No Gabapentin 100 MG Trelegy Ellipta 100-62.5-25 MCG/INH Trelegy Ellipta 100-62.5-25 MCG/INH No 1{puff} QD Trelegy Ellipta 100-62.5-2 5 MCG/INH Aspirin Low Dose 81 MG Aspirin Low Dose 81 MG No Aspirin Low Dose 81 MG Vitamin D3 72086 UNIT Vitamin D3 13319 UNIT No 1{capsu le} Vitamin D3 16376 UNIT NexIUM 40 MG NexIUM 40 MG No NexIUM 40 MG Zofran 4 MG Zofran 4 MG No 1{table t_as_ne eded} QD Zofran 4 MG Atenolol 100 MG Atenolol 100 MG No Atenolol 100 MG ProAir HFA 108 (90 Base) MCG/ACT ProAir HFA 108 (90 Base) MCG/ACT No 2{puffs _as_nee ded} QID ProAir HFA 108 (90 Base) MCG/ACT HYDROcodone -Acetaminop hen 5-325 MG HYDROcodone -Acetaminop hen 5-325 MG No 1{table t} QD HYDROcodon e-Acetamin ophen 5-325 MG Clopidogrel Bisulfate 75 MG Clopidogrel Bisulfate 75 MG No 1{table t} QD Clopidogre l Bisulfate 75 MG Spironolact one 25 MG Spironolact one 25 MG No 1{table t} QD Spironolac tone 25 MG Linzess 145 mcg Linzess 145 mcg No 1{capsu le} QD Linzess 145 mcg Venlafaxine HCl ER 150 MG Venlafaxine HCl ER 150 MG No Venlafaxin e HCl ER 150 MG Simvastatin 40 MG Simvastatin 40 MG No Simvastati n 40 MG Aspirin 81 MG Aspirin 81 MG No Aspirin 81 MG Aspirin 81 MG Aspirin 81 MG No Aspirin 81 MG Levothyroxi ne Sodium 25 MCG Levothyroxi ne Sodium 25 MCG No Levothyrox ine Sodium 25 MCG Furosemide 20 MG Furosemide 20 MG No 1{table t} QD Furosemide 20 MG Trelegy Ellipta 100-62.5-25 MCG/INH Trelegy Ellipta 100-62.5-25 MCG/INH No 1{puff} QD Trelegy Ellipta 100-62.5-2 5 MCG/INH Linzess 145 mcg Linzess 145 mcg No 1{capsu le} QD Linzess 145 mcg Venlafaxine HCl ER 75 MG Venlafaxine HCl ER 75 MG No 1{capsu le_with _food} QD Venlafaxin e HCl ER 75 MG Vitamin D3 86453 UNIT Vitamin D3 56750 UNIT No 1{capsu le} Vitamin D3 88556 UNIT Hydrocodone -Acetaminop hen 5-325 MG Hydrocodone -Acetaminop hen 5-325 MG No 1{table t} QD Hydrocodon e-Acetamin ophen 5-325 MG Gabapentin 100 MG Gabapentin 100 MG No Gabapentin 100 MG Levothyroxi ne Sodium 50 MCG Levothyroxi ne Sodium 50 MCG No Levothyrox ine Sodium 50 MCG Synthroid 25 MCG Synthroid 25 MCG No QD Synthroid 25 MCG HYDROcodone -Acetaminop hen 5-325 MG HYDROcodone -Acetaminop hen 5-325 MG No 1{table t_as_ne eded} QID HYDROcodon e-Acetamin ophen 5-325 MG Atenolol 100 MG Atenolol 100 MG No 1{table t} QD Atenolol 100 MG Nexium 24HR 20 MG Nexium 24HR 20 MG No 1{capsu le} QD Nexium 24HR 20 MG Aspirin Low Dose 81 MG Aspirin Low Dose 81 MG No Aspirin Low Dose 81 MG Clopidogrel Bisulfate 75 MG Clopidogrel Bisulfate 75 MG No 1{table t} QD Clopidogre l Bisulfate 75 MG Synthroid 25 MCG Synthroid 25 MCG No QD Synthroid 25 MCG Spironolact one 25 MG Spironolact one 25 MG No 1{table t} QD Spironolac tone 25 MG NexIUM 40 MG NexIUM 40 MG No NexIUM 40 MG Trelegy Ellipta 100-62.5-25 MCG/INH Trelegy Ellipta 100-62.5-25 MCG/INH No 1{puff} QD Trelegy Ellipta 100-62.5-2 5 MCG/INH Aspirin 81 MG Aspirin 81 MG No Aspirin 81 MG HYDROcodone -Acetaminop hen 5-325 MG HYDROcodone -Acetaminop hen 5-325 MG No 1{table t} QD HYDROcodon e-Acetamin ophen 5-325 MG Venlafaxine HCl ER 150 MG Venlafaxine HCl ER 150 MG No Venlafaxin e HCl ER 150 MG Venlafaxine HCl ER 75 MG Venlafaxine HCl ER 75 MG No 1{capsu le_with _food} QD Venlafaxin e HCl ER 75 MG Atenolol 100 MG Atenolol 100 MG No Atenolol 100 MG Vitamin D3 58039 UNIT Vitamin D3 37939 UNIT No 1{capsu le} Vitamin D3 56867 UNIT Aspirin 81 MG Aspirin 81 MG No Aspirin 81 MG Levothyroxi ne Sodium 25 MCG Levothyroxi ne Sodium 25 MCG No Levothyrox ine Sodium 25 MCG Furosemide 20 MG Furosemide 20 MG No 1{table t} QD Furosemide 20 MG Levothyroxi ne Sodium 50 MCG Levothyroxi ne Sodium 50 MCG No Levothyrox ine Sodium 50 MCG HYDROcodone -Acetaminop hen 5-325 MG HYDROcodone -Acetaminop hen 5-325 MG No 1{table t_as_ne eded} QID HYDROcodon e-Acetamin ophen 5-325 MG ProAir HFA 108 (90 Base) MCG/ACT ProAir HFA 108 (90 Base) MCG/ACT No 2{puffs _as_nee ded} QID ProAir HFA 108 (90 Base) MCG/ACT Simvastatin 40 MG Simvastatin 40 MG No Simvastati n 40 MG Aspirin Low Dose 81 MG Aspirin Low Dose 81 MG No Aspirin Low Dose 81 MG Vitamin D3 66323 UNIT Vitamin D3 77630 UNIT No 1{capsu le} Vitamin D3 40466 UNIT Gabapentin 100 MG Gabapentin 100 MG No Gabapentin 100 MG Zofran 4 MG Zofran 4 MG No 1{table t_as_ne eded} QD Zofran 4 MG Linzess 145 mcg Linzess 145 mcg No 1{capsu le} QD Linzess 145 mcg Aspirin 81 MG Aspirin 81 MG No Aspirin 81 MG Gabapentin 100 MG Gabapentin 100 MG No Gabapentin 100 MG Zofran 4 MG Zofran 4 MG No 1{table t_as_ne eded} QD Zofran 4 MG HYDROcodone -Acetaminop hen 5-325 MG HYDROcodone -Acetaminop hen 5-325 MG No 1{table t} QD HYDROcodon e-Acetamin ophen 5-325 MG Vitamin D3 71138 UNIT Vitamin D3 50553 UNIT No 1{capsu le} Vitamin D3 20263 UNIT NexIUM 40 MG NexIUM 40 MG No NexIUM 40 MG Vitamin D3 16074 UNIT Vitamin D3 38251 UNIT No 1{capsu le} Vitamin D3 68556 UNIT Furosemide 20 MG Furosemide 20 MG No 1{table t} QD Furosemide 20 MG Levothyroxi ne Sodium 25 MCG Levothyroxi ne Sodium 25 MCG No Levothyrox ine Sodium 25 MCG Atenolol 100 MG Atenolol 100 MG No Atenolol 100 MG HYDROcodone -Acetaminop hen 5-325 MG HYDROcodone -Acetaminop hen 5-325 MG No 1{table t_as_ne eded} QID HYDROcodon e-Acetamin ophen 5-325 MG Trelegy Ellipta 100-62.5-25 MCG/INH Trelegy Ellipta 100-62.5-25 MCG/INH No 1{puff} QD Trelegy Ellipta 100-62.5-2 5 MCG/INH Levothyroxi ne Sodium 50 MCG Levothyroxi ne Sodium 50 MCG No Levothyrox ine Sodium 50 MCG Simvastatin 40 MG Simvastatin 40 MG No Simvastati n 40 MG Spironolact one 25 MG Spironolact one 25 MG No 1{table t} QD Spironolac tone 25 MG Linzess 145 mcg Linzess 145 mcg No 1{capsu le} QD Linzess 145 mcg Venlafaxine HCl ER 150 MG Venlafaxine HCl ER 150 MG No Venlafaxin e HCl ER 150 MG Synthroid 25 MCG Synthroid 25 MCG No QD Synthroid 25 MCG Aspirin 81 MG Aspirin 81 MG No Aspirin 81 MG Venlafaxine HCl ER 75 MG Venlafaxine HCl ER 75 MG No 1{capsu le_with _food} QD Venlafaxin e HCl ER 75 MG Aspirin Low Dose 81 MG Aspirin Low Dose 81 MG No Aspirin Low Dose 81 MG ProAir HFA 108 (90 Base) MCG/ACT ProAir HFA 108 (90 Base) MCG/ACT No 2{puffs _as_nee ded} QID ProAir HFA 108 (90 Base) MCG/ACT Clopidogrel Bisulfate 75 MG Clopidogrel Bisulfate 75 MG No 1{table t} QD Clopidogre l Bisulfate 75 MG Zofran 4 MG Zofran 4 MG No 1{table t_as_ne eded} QD Zofran 4 MG Levothyroxi ne Sodium 25 MCG Levothyroxi ne Sodium 25 MCG No Levothyrox ine Sodium 25 MCG Vitamin D3 88054 UNIT Vitamin D3 40728 UNIT No 1{capsu le} Vitamin D3 34884 UNIT Aspirin 81 MG Aspirin 81 MG No Aspirin 81 MG NexIUM 40 MG NexIUM 40 MG No NexIUM 40 MG Aspirin Low Dose 81 MG Aspirin Low Dose 81 MG No Aspirin Low Dose 81 MG Aspirin 81 MG Aspirin 81 MG No Aspirin 81 MG Venlafaxine HCl ER 150 MG Venlafaxine HCl ER 150 MG No Venlafaxin e HCl ER 150 MG Gabapentin 100 MG Gabapentin 100 MG No Gabapentin 100 MG Vitamin D3 01381 UNIT Vitamin D3 46634 UNIT No 1{capsu le} Vitamin D3 62889 UNIT Levothyroxi ne Sodium 50 MCG Levothyroxi ne Sodium 50 MCG No Levothyrox ine Sodium 50 MCG Synthroid 25 MCG Synthroid 25 MCG No QD Synthroid 25 MCG ProAir HFA 108 (90 Base) MCG/ACT ProAir HFA 108 (90 Base) MCG/ACT No 2{puffs _as_nee ded} QID ProAir HFA 108 (90 Base) MCG/ACT HYDROcodone -Acetaminop hen 5-325 MG HYDROcodone -Acetaminop hen 5-325 MG No 1{table t} QD HYDROcodon e-Acetamin ophen 5-325 MG HYDROcodone -Acetaminop hen 5-325 MG HYDROcodone -Acetaminop hen 5-325 MG No 1{table t_as_ne eded} QID HYDROcodon e-Acetamin ophen 5-325 MG Simvastatin 40 MG Simvastatin 40 MG No Simvastati n 40 MG Spironolact one 25 MG Spironolact one 25 MG No 1{table t} QD Spironolac tone 25 MG Linzess 145 mcg Linzess 145 mcg No 1{capsu le} QD Linzess 145 mcg Trelegy Ellipta 100-62.5-25 MCG/INH Trelegy Ellipta 100-62.5-25 MCG/INH No 1{puff} QD Trelegy Ellipta 100-62.5-2 5 MCG/INH Furosemide 20 MG Furosemide 20 MG No 1{table t} QD Furosemide 20 MG Atenolol 100 MG Atenolol 100 MG No Atenolol 100 MG Venlafaxine HCl ER 75 MG Venlafaxine HCl ER 75 MG No 1{capsu le_with _food} QD Venlafaxin e HCl ER 75 MG Clopidogrel Bisulfate 75 MG Clopidogrel Bisulfate 75 MG No 1{table t} QD Clopidogre l Bisulfate 75 MG Aspirin 81 MG Aspirin 81 MG No Aspirin 81 MG Zofran 4 MG Zofran 4 MG No 1{table t_as_ne eded} QD Zofran 4 MG Levothyroxi ne Sodium 25 MCG Levothyroxi ne Sodium 25 MCG No Levothyrox ine Sodium 25 MCG Vitamin D3 95142 UNIT Vitamin D3 31824 UNIT No 1{capsu le} Vitamin D3 82941 UNIT Aspirin 81 MG Aspirin 81 MG No Aspirin 81 MG NexIUM 40 MG NexIUM 40 MG No NexIUM 40 MG Nexium 40 MG Nexium 40 MG No Nexium 40 MG ProAir HFA 108 (90 Base) MCG/ACT ProAir HFA 108 (90 Base) MCG/ACT No 2{puffs _as_nee ded} QID ProAir HFA 108 (90 Base) MCG/ACT Aspirin 81 MG Aspirin 81 MG No Aspirin 81 MG HYDROcodone -Acetaminop hen 5-325 MG HYDROcodone -Acetaminop hen 5-325 MG No 1{table t} QD HYDROcodon e-Acetamin ophen 5-325 MG Venlafaxine HCl ER 150 MG Venlafaxine HCl ER 150 MG No Venlafaxin e HCl ER 150 MG Gabapentin 100 MG Gabapentin 100 MG No Gabapentin 100 MG Vitamin D3 07493 UNIT Vitamin D3 18091 UNIT No 1{capsu le} Vitamin D3 82713 UNIT Levothyroxi ne Sodium 50 MCG Levothyroxi ne Sodium 50 MCG No Levothyrox ine Sodium 50 MCG Linzess 145 mcg Linzess 145 mcg No 1{capsu le} QD Linzess 145 mcg Synthroid 25 MCG Synthroid 25 MCG No QD Synthroid 25 MCG Venlafaxine HCl ER 75 MG Venlafaxine HCl ER 75 MG No 1{capsu le_with _food} QD Venlafaxin e HCl ER 75 MG Simvastatin 40 MG Simvastatin 40 MG No 1{table t_in_th e_eveni ng} QD Simvastati n 40 MG HYDROcodone -Acetaminop hen 5-325 MG HYDROcodone -Acetaminop hen 5-325 MG No 1{table t_as_ne eded} QID HYDROcodon e-Acetamin ophen 5-325 MG Simvastatin 40 MG Simvastatin 40 MG No Simvastati n 40 MG Aspirin Low Dose 81 MG Aspirin Low Dose 81 MG No Aspirin Low Dose 81 MG traZODone HCl 100 MG traZODone HCl 100 MG No traZODone HCl 100 MG Trelegy Ellipta 100-62.5-25 MCG/INH Trelegy Ellipta 100-62.5-25 MCG/INH No 1{puff} QD Trelegy Ellipta 100-62.5-2 5 MCG/INH Furosemide 20 MG Furosemide 20 MG No 1{table t} QD Furosemide 20 MG Atenolol 100 MG Atenolol 100 MG No Atenolol 100 MG Spironolact one 25 MG Spironolact one 25 MG No 1{table t} QD Spironolac tone 25 MG Clopidogrel Bisulfate 75 MG Clopidogrel Bisulfate 75 MG No 1{table t} QD Clopidogre l Bisulfate 75 MG Aspirin 81 MG Aspirin 81 MG No Aspirin 81 MG Hydrocodone -Acetaminop hen 5-325 MG Hydrocodone -Acetaminop hen 5-325 MG No 1{table t_as_ne eded} QID Hydrocodon e-Acetamin ophen 5-325 MG Hydrocodone -Acetaminop hen 5-325 MG Hydrocodone -Acetaminop hen 5-325 MG No 1{table t} QD Hydrocodon e-Acetamin ophen 5-325 MG ProAir HFA 108 (90 Base) MCG/ACT ProAir HFA 108 (90 Base) MCG/ACT No 2{puffs _as_nee ded} QID ProAir HFA 108 (90 Base) MCG/ACT Vitamin D3 22509 UNIT Vitamin D3 23213 UNIT No 1{capsu le} Vitamin D3 85333 UNIT Linzess 145 mcg Linzess 145 mcg No 1{capsu le} QD Linzess 145 mcg Clopidogrel Bisulfate 75 MG Clopidogrel Bisulfate 75 MG No 1{table t} QD Clopidogre l Bisulfate 75 MG Levothyroxi ne Sodium 50 MCG Levothyroxi ne Sodium 50 MCG No Levothyrox ine Sodium 50 MCG Venlafaxine HCl ER 150 MG Venlafaxine HCl ER 150 MG No Venlafaxin e HCl ER 150 MG Zofran 4 MG Zofran 4 MG No 1{table t_as_ne eded} QD Zofran 4 MG HYDROcodone -Acetaminop hen 5-325 MG HYDROcodone -Acetaminop hen 5-325 MG No 1{table t} QD HYDROcodon e-Acetamin ophen 5-325 MG Simvastatin 40 MG Simvastatin 40 MG No Simvastati n 40 MG Venlafaxine HCl ER 75 MG Venlafaxine HCl ER 75 MG No 1{capsu le_with _food} QD Venlafaxin e HCl ER 75 MG Venlafaxine HCl ER 75 MG Venlafaxine HCl ER 75 MG No 1{capsu le_with _food} QD Venlafaxin e HCl ER 75 MG HYDROcodone -Acetaminop hen 5-325 MG HYDROcodone -Acetaminop hen 5-325 MG No 1{table t_as_ne eded} QID HYDROcodon e-Acetamin ophen 5-325 MG Furosemide 20 MG Furosemide 20 MG No 1{table t} QD Furosemide 20 MG Synthroid 25 MCG Synthroid 25 MCG No QD Synthroid 25 MCG Vitamin D3 00429 UNIT Vitamin D3 40827 UNIT No 1{capsu le} Vitamin D3 08164 UNIT Aspirin Low Dose 81 MG Aspirin Low Dose 81 MG No Aspirin Low Dose 81 MG ProAir HFA 108 (90 Base) MCG/ACT ProAir HFA 108 (90 Base) MCG/ACT No 2{puffs _as_nee ded} QID ProAir HFA 108 (90 Base) MCG/ACT Levothyroxi ne Sodium 25 MCG Levothyroxi ne Sodium 25 MCG No Levothyrox ine Sodium 25 MCG Spironolact one 25 MG Spironolact one 25 MG No 1{table t} QD Spironolac tone 25 MG traZODone HCl 100 MG traZODone HCl 100 MG No traZODone HCl 100 MG Synthroid 25 MCG Synthroid 25 MCG No QD Synthroid 25 MCG Trelegy Ellipta 100-62.5-25 MCG/INH Trelegy Ellipta 100-62.5-25 MCG/INH No 1{puff} QD Trelegy Ellipta 100-62.5-2 5 MCG/INH Gabapentin 100 MG Gabapentin 100 MG No Gabapentin 100 MG Atenolol 100 MG Atenolol 100 MG No Atenolol 100 MG Aspirin 81 MG Aspirin 81 MG No Aspirin 81 MG NexIUM 40 MG NexIUM 40 MG No NexIUM 40 MG Aspirin 81 MG Aspirin 81 MG No Aspirin 81 MG Gabapentin 100 MG Gabapentin 100 MG No Gabapentin 100 MG Atenolol 100 MG Atenolol 100 MG No Atenolol 100 MG Spironolact one 25 MG Spironolact one 25 MG No 1{table t} QD Spironolac tone 25 MG Linzess 145 mcg Linzess 145 mcg No 1{capsu le} QD Linzess 145 mcg Vitamin D3 83925 UNIT Vitamin D3 19147 UNIT No 1{capsu le} Vitamin D3 79592 UNIT Linzess 145 mcg Linzess 145 mcg No 1{capsu le} QD Linzess 145 mcg traZODone HCl 100 MG traZODone HCl 100 MG No traZODone HCl 100 MG Levothyroxi ne Sodium 50 MCG Levothyroxi ne Sodium 50 MCG No Levothyrox ine Sodium 50 MCG Venlafaxine HCl ER 150 MG Venlafaxine HCl ER 150 MG No Venlafaxin e HCl ER 150 MG Zofran 4 MG Zofran 4 MG No 1{table t_as_ne eded} QD Zofran 4 MG HYDROcodone -Acetaminop hen 5-325 MG HYDROcodone -Acetaminop hen 5-325 MG No 1{table t} QD HYDROcodon e-Acetamin ophen 5-325 MG Simvastatin 40 MG Simvastatin 40 MG No Simvastati n 40 MG ProAir HFA 108 (90 Base) MCG/ACT ProAir HFA 108 (90 Base) MCG/ACT No 2{puffs _as_nee ded} QID ProAir HFA 108 (90 Base) MCG/ACT Nexium 24HR 20 MG Nexium 24HR 20 MG No 1{capsu le} QD Nexium 24HR 20 MG Venlafaxine HCl ER 75 MG Venlafaxine HCl ER 75 MG No 1{capsu le_with _food} QD Venlafaxin e HCl ER 75 MG Furosemide 20 MG Furosemide 20 MG No 1{table t} QD Furosemide 20 MG Trelegy Ellipta 100-62.5-25 MCG/INH Trelegy Ellipta 100-62.5-25 MCG/INH No 1{puff} QD Trelegy Ellipta 100-62.5-2 5 MCG/INH Vitamin D3 20583 UNIT Vitamin D3 12262 UNIT No 1{capsu le} Vitamin D3 78573 UNIT Gabapentin 100 MG Gabapentin 100 MG No Gabapentin 100 MG Synthroid 25 MCG Synthroid 25 MCG No QD Synthroid 25 MCG Levothyroxi ne Sodium 25 MCG Levothyroxi ne Sodium 25 MCG No Levothyrox ine Sodium 25 MCG Spironolact one 25 MG Spironolact one 25 MG No 1{table t} QD Spironolac tone 25 MG Aspirin Low Dose 81 MG Aspirin Low Dose 81 MG No Aspirin Low Dose 81 MG Clopidogrel Bisulfate 75 MG Clopidogrel Bisulfate 75 MG No 1{table t} QD Clopidogre l Bisulfate 75 MG Levothyroxi ne Sodium 50 MCG Levothyroxi ne Sodium 50 MCG No Levothyrox ine Sodium 50 MCG HYDROcodone -Acetaminop hen 5-325 MG HYDROcodone -Acetaminop hen 5-325 MG No 1{table t_as_ne eded} QID HYDROcodon e-Acetamin ophen 5-325 MG Atenolol 100 MG Atenolol 100 MG No Atenolol 100 MG Aspirin 81 MG Aspirin 81 MG No Aspirin 81 MG NexIUM 40 MG NexIUM 40 MG No NexIUM 40 MG Aspirin 81 MG Aspirin 81 MG No Aspirin 81 MG Furosemide 20 MG Furosemide 20 MG No 1{table t} QD Furosemide 20 MG Trelegy Ellipta 100-62.5-25 MCG/INH Trelegy Ellipta 100-62.5-25 MCG/INH No 1{puff} QD Trelegy Ellipta 100-62.5-2 5 MCG/INH Aspirin Low Dose 81 MG Aspirin Low Dose 81 MG No Aspirin Low Dose 81 MG Atenolol 100 MG Atenolol 100 MG No QD Atenolol 100 MG Gabapentin 100 MG Gabapentin 100 MG No Gabapentin 100 MG Aspirin 81 MG Aspirin 81 MG No Aspirin 81 MG Levothyroxi ne Sodium 25 MCG Levothyroxi ne Sodium 25 MCG No Levothyrox ine Sodium 25 MCG NexIUM 40 MG NexIUM 40 MG No NexIUM 40 MG Venlafaxine HCl ER 75 MG Venlafaxine HCl ER 75 MG No 1{capsu le_with _food} QD Venlafaxin e HCl ER 75 MG Synthroid 25 MCG Synthroid 25 MCG No QD Synthroid 25 MCG Aspirin Low Dose 81 MG Aspirin Low Dose 81 MG No Aspirin Low Dose 81 MG Furosemide 20 MG Furosemide 20 MG No 1{table t} QD Furosemide 20 MG Clopidogrel Bisulfate 75 MG Clopidogrel Bisulfate 75 MG No 1{table t} QD Clopidogre l Bisulfate 75 MG Clopidogrel Bisulfate 75 MG Clopidogrel Bisulfate 75 MG No 1{table t} QD Clopidogre l Bisulfate 75 MG Atenolol 100 MG Atenolol 100 MG No QD Atenolol 100 MG ProAir HFA 108 (90 Base) MCG/ACT ProAir HFA 108 (90 Base) MCG/ACT No 2{puffs _as_nee ded} QID ProAir HFA 108 (90 Base) MCG/ACT Atenolol 100 MG Atenolol 100 MG No Atenolol 100 MG Vitamin D3 94331 UNIT Vitamin D3 45490 UNIT No 1{capsu le} Vitamin D3 96890 UNIT Zofran 4 MG Zofran 4 MG No 1{table t_as_ne eded} QD Zofran 4 MG Simvastatin 40 MG Simvastatin 40 MG No Simvastati n 40 MG traZODone HCl 100 MG traZODone HCl 100 MG No traZODone HCl 100 MG Venlafaxine HCl ER 150 MG Venlafaxine HCl ER 150 MG No QD Venlafaxin e HCl ER 150 MG Vitamin D3 51974 UNIT Vitamin D3 23895 UNIT No 1{capsu le} Vitamin D3 67062 UNIT Zofran 4 MG Zofran 4 MG No 1{table t_as_ne eded} TID Zofran 4 MG Trelegy Ellipta 100-62.5-25 MCG/INH Trelegy Ellipta 100-62.5-25 MCG/INH No 1{puff} QD Trelegy Ellipta 100-62.5-2 5 MCG/INH Levothyroxi ne Sodium 50 MCG Levothyroxi ne Sodium 50 MCG No Levothyrox ine Sodium 50 MCG Venlafaxine HCl ER 150 MG Venlafaxine HCl ER 150 MG No Venlafaxin e HCl ER 150 MG Simvastatin 40 MG Simvastatin 40 MG No 1{table t_in_th e_eveni ng} QD Simvastati n 40 MG Linzess 145 mcg Linzess 145 mcg No 1{capsu le} QD Linzess 145 mcg Spironolact one 25 MG Spironolact one 25 MG No 1{table t} QD Spironolac tone 25 MG HYDROcodone -Acetaminop hen 5-325 MG HYDROcodone -Acetaminop hen 5-325 MG No 1{table t} QD HYDROcodon e-Acetamin ophen 5-325 MG Aspirin 81 MG Aspirin 81 MG No Aspirin 81 MG HYDROcodone -Acetaminop hen 5-325 MG HYDROcodone -Acetaminop hen 5-325 MG No 1{table t_as_ne eded} QID HYDROcodon e-Acetamin ophen 5-325 MG Atenolol 100 MG Atenolol 100 MG No 1{table t} QD Atenolol 100 MG Gabapentin 100 MG Gabapentin 100 MG No Gabapentin 100 MG Aspirin 81 MG Aspirin 81 MG No Aspirin 81 MG Levothyroxi ne Sodium 25 MCG Levothyroxi ne Sodium 25 MCG No Levothyrox ine Sodium 25 MCG NexIUM 40 MG NexIUM 40 MG No NexIUM 40 MG Venlafaxine HCl ER 75 MG Venlafaxine HCl ER 75 MG No 1{capsu le_with _food} QD Venlafaxin e HCl ER 75 MG Synthroid 25 MCG Synthroid 25 MCG No QD Synthroid 25 MCG Aspirin Low Dose 81 MG Aspirin Low Dose 81 MG No Aspirin Low Dose 81 MG Furosemide 20 MG Furosemide 20 MG No 1{table t} QD Furosemide 20 MG Clopidogrel Bisulfate 75 MG Clopidogrel Bisulfate 75 MG No 1{table t} QD Clopidogre l Bisulfate 75 MG Atenolol 100 MG Atenolol 100 MG No QD Atenolol 100 MG ProAir HFA 108 (90 Base) MCG/ACT ProAir HFA 108 (90 Base) MCG/ACT No 2{puffs _as_nee ded} QID ProAir HFA 108 (90 Base) MCG/ACT Atenolol 100 MG Atenolol 100 MG No Atenolol 100 MG Vitamin D3 53617 UNIT Vitamin D3 89482 UNIT No 1{capsu le} Vitamin D3 52003 UNIT Zofran 4 MG Zofran 4 MG No 1{table t_as_ne eded} QD Zofran 4 MG Simvastatin 40 MG Simvastatin 40 MG No Simvastati n 40 MG traZODone HCl 100 MG traZODone HCl 100 MG No traZODone HCl 100 MG Venlafaxine HCl ER 150 MG Venlafaxine HCl ER 150 MG No QD Venlafaxin e HCl ER 150 MG Vitamin D3 88380 UNIT Vitamin D3 92529 UNIT No 1{capsu le} Vitamin D3 30666 UNIT Trelegy Ellipta 100-62.5-25 MCG/INH Trelegy Ellipta 100-62.5-25 MCG/INH No 1{puff} QD Trelegy Ellipta 100-62.5-2 5 MCG/INH Levothyroxi ne Sodium 50 MCG Levothyroxi ne Sodium 50 MCG No Levothyrox ine Sodium 50 MCG Venlafaxine HCl ER 150 MG Venlafaxine HCl ER 150 MG No Venlafaxin e HCl ER 150 MG Simvastatin 40 MG Simvastatin 40 MG No 1{table t_in_th e_eveni ng} QD Simvastati n 40 MG Linzess 145 mcg Linzess 145 mcg No 1{capsu le} QD Linzess 145 mcg Spironolact one 25 MG Spironolact one 25 MG No 1{table t} QD Spironolac tone 25 MG HYDROcodone -Acetaminop hen 5-325 MG HYDROcodone -Acetaminop hen 5-325 MG No 1{table t} QD HYDROcodon e-Acetamin ophen 5-325 MG Aspirin 81 MG Aspirin 81 MG No Aspirin 81 MG HYDROcodone -Acetaminop hen 5-325 MG HYDROcodone -Acetaminop hen 5-325 MG No 1{table t_as_ne eded} QID HYDROcodon e-Acetamin ophen 5-325 MG Aspirin Low Dose 81 MG Aspirin Low Dose 81 MG No Aspirin Low Dose 81 MG HYDROcodone -Acetaminop hen 5-325 MG HYDROcodone -Acetaminop hen 5-325 MG No 1{table t_as_ne eded} QID HYDROcodon e-Acetamin ophen 5-325 MG Synthroid 25 MCG Synthroid 25 MCG No QD Synthroid 25 MCG Clopidogrel Bisulfate 75 MG Clopidogrel Bisulfate 75 MG No 1{table t} QD Clopidogre l Bisulfate 75 MG NexIUM 40 MG NexIUM 40 MG No NexIUM 40 MG Vitamin D3 11039 UNIT Vitamin D3 33346 UNIT No 1{capsu le} Vitamin D3 61957 UNIT Aspirin 81 MG Aspirin 81 MG No Aspirin 81 MG Levothyroxi ne Sodium 25 MCG Levothyroxi ne Sodium 25 MCG No Levothyrox ine Sodium 25 MCG Gabapentin 100 MG Gabapentin 100 MG No Gabapentin 100 MG Atenolol 100 MG Atenolol 100 MG No Atenolol 100 MG Simvastatin 40 MG Simvastatin 40 MG No 1{table t_in_th e_eveni ng} QD Simvastati n 40 MG ProAir HFA 108 (90 Base) MCG/ACT ProAir HFA 108 (90 Base) MCG/ACT No 2{puffs _as_nee ded} QID ProAir HFA 108 (90 Base) MCG/ACT Trelegy Ellipta 100-62.5-25 MCG/INH Trelegy Ellipta 100-62.5-25 MCG/INH No 1{puff} QD Trelegy Ellipta 100-62.5-2 5 MCG/INH Zofran 4 MG Zofran 4 MG No 1{table t_as_ne eded} QD Zofran 4 MG traZODone HCl 100 MG traZODone HCl 100 MG No traZODone HCl 100 MG Furosemide 20 MG Furosemide 20 MG No 1{table t} QD Furosemide 20 MG Aspirin 81 MG Aspirin 81 MG No Aspirin 81 MG Simvastatin 40 MG Simvastatin 40 MG No Simvastati n 40 MG Venlafaxine HCl ER 75 MG Venlafaxine HCl ER 75 MG No 1{capsu le_with _food} QD Venlafaxin e HCl ER 75 MG Venlafaxine HCl ER 150 MG Venlafaxine HCl ER 150 MG No Venlafaxin e HCl ER 150 MG Vitamin D3 91904 UNIT Vitamin D3 23010 UNIT No 1{capsu le} Vitamin D3 81072 UNIT Linzess 145 mcg Linzess 145 mcg No 1{capsu le} QD Linzess 145 mcg HYDROcodone -Acetaminop hen 5-325 MG HYDROcodone -Acetaminop hen 5-325 MG No 1{table t} QD HYDROcodon e-Acetamin ophen 5-325 MG Levothyroxi ne Sodium 50 MCG Levothyroxi ne Sodium 50 MCG No Levothyrox ine Sodium 50 MCG Spironolact one 25 MG Spironolact one 25 MG No 1{table t} QD Spironolac tone 25 MG Aspirin Low Dose 81 MG Aspirin Low Dose 81 MG No Aspirin Low Dose 81 MG HYDROcodone -Acetaminop hen 5-325 MG HYDROcodone -Acetaminop hen 5-325 MG No 1{table t_as_ne eded} QID HYDROcodon e-Acetamin ophen 5-325 MG Synthroid 25 MCG Synthroid 25 MCG No QD Synthroid 25 MCG Clopidogrel Bisulfate 75 MG Clopidogrel Bisulfate 75 MG No 1{table t} QD Clopidogre l Bisulfate 75 MG NexIUM 40 MG NexIUM 40 MG No NexIUM 40 MG Vitamin D3 20610 UNIT Vitamin D3 50701 UNIT No 1{capsu le} Vitamin D3 21197 UNIT Aspirin 81 MG Aspirin 81 MG No Aspirin 81 MG Levothyroxi ne Sodium 25 MCG Levothyroxi ne Sodium 25 MCG No Levothyrox ine Sodium 25 MCG Gabapentin 100 MG Gabapentin 100 MG No Gabapentin 100 MG Atenolol 100 MG Atenolol 100 MG No Atenolol 100 MG Simvastatin 40 MG Simvastatin 40 MG No 1{table t_in_th e_eveni ng} QD Simvastati n 40 MG ProAir HFA 108 (90 Base) MCG/ACT ProAir HFA 108 (90 Base) MCG/ACT No 2{puffs _as_nee ded} QID ProAir HFA 108 (90 Base) MCG/ACT Trelegy Ellipta 100-62.5-25 MCG/INH Trelegy Ellipta 100-62.5-25 MCG/INH No 1{puff} QD Trelegy Ellipta 100-62.5-2 5 MCG/INH Zofran 4 MG Zofran 4 MG No 1{table t_as_ne eded} QD Zofran 4 MG traZODone HCl 100 MG traZODone HCl 100 MG No traZODone HCl 100 MG Aspirin 81 MG Aspirin 81 MG No Aspirin 81 MG Furosemide 20 MG Furosemide 20 MG No 1{table t} QD Furosemide 20 MG Aspirin 81 MG Aspirin 81 MG No Aspirin 81 MG Simvastatin 40 MG Simvastatin 40 MG No Simvastati n 40 MG Venlafaxine HCl ER 75 MG Venlafaxine HCl ER 75 MG No 1{capsu le_with _food} QD Venlafaxin e HCl ER 75 MG Venlafaxine HCl ER 150 MG Venlafaxine HCl ER 150 MG No Venlafaxin e HCl ER 150 MG Vitamin D3 03127 UNIT Vitamin D3 68392 UNIT No 1{capsu le} Vitamin D3 26043 UNIT Linzess 145 mcg Linzess 145 mcg No 1{capsu le} QD Linzess 145 mcg HYDROcodone -Acetaminop hen 5-325 MG HYDROcodone -Acetaminop hen 5-325 MG No 1{table t} QD HYDROcodon e-Acetamin ophen 5-325 MG Levothyroxi ne Sodium 50 MCG Levothyroxi ne Sodium 50 MCG No Levothyrox ine Sodium 50 MCG Spironolact one 25 MG Spironolact one 25 MG No 1{table t} QD Spironolac tone 25 MG Nexium 40 MG Nexium 40 MG No Nexium 40 MG Simvastatin 40 MG Simvastatin 40 MG No 1{table t_in_th e_eveni ng} QD Simvastati n 40 MG Aspirin 81 MG Aspirin 81 MG No Aspirin 81 MG Levothyroxi ne Sodium 25 MCG Levothyroxi ne Sodium 25 MCG No Levothyrox ine Sodium 25 MCG NexIUM 40 MG NexIUM 40 MG No NexIUM 40 MG Hydrocodone -Acetaminop hen 5-325 MG Hydrocodone -Acetaminop hen 5-325 MG No 1{table t_as_ne eded} QID Hydrocodon e-Acetamin ophen 5-325 MG Aspirin Low Dose 81 MG Aspirin Low Dose 81 MG No Aspirin Low Dose 81 MG Gabapentin 100 MG Gabapentin 100 MG No Gabapentin 100 MG Trelegy Ellipta 100-62.5-25 MCG/INH Trelegy Ellipta 100-62.5-25 MCG/INH No 1{puff} QD Trelegy Ellipta 100-62.5-2 5 MCG/INH Synthroid 25 MCG Synthroid 25 MCG No QD Synthroid 25 MCG Aspirin 81 MG Aspirin 81 MG No Aspirin 81 MG traZODone HCl 100 MG traZODone HCl 100 MG No traZODone HCl 100 MG HYDROcodone -Acetaminop hen 5-325 MG HYDROcodone -Acetaminop hen 5-325 MG No 1{table t_as_ne eded} QID HYDROcodon e-Acetamin ophen 5-325 MG Furosemide 20 MG Furosemide 20 MG No 1{table t} QD Furosemide 20 MG Hydrocodone -Acetaminop hen 5-325 MG Hydrocodone -Acetaminop hen 5-325 MG No 1{table t} QD Hydrocodon e-Acetamin ophen 5-325 MG Atenolol 100 MG Atenolol 100 MG No Atenolol 100 MG Spironolact one 25 MG Spironolact one 25 MG No 1{table t} QD Spironolac tone 25 MG Vitamin D3 47496 UNIT Vitamin D3 38381 UNIT No 1{capsu le} Vitamin D3 18495 UNIT Venlafaxine HCl ER 75 MG Venlafaxine HCl ER 75 MG No 1{capsu le_with _food} QD Venlafaxin e HCl ER 75 MG Linzess 145 mcg Linzess 145 mcg No 1{capsu le} QD Linzess 145 mcg Aspirin 81 MG Aspirin 81 MG No Aspirin 81 MG Clopidogrel Bisulfate 75 MG Clopidogrel Bisulfate 75 MG No 1{table t} QD Clopidogre l Bisulfate 75 MG ProAir HFA 108 (90 Base) MCG/ACT ProAir HFA 108 (90 Base) MCG/ACT No 2{puffs _as_nee ded} QID ProAir HFA 108 (90 Base) MCG/ACT Zofran 4 MG Zofran 4 MG No 1{table t_as_ne eded} QD Zofran 4 MG Simvastatin 40 MG Simvastatin 40 MG No 1{table t_in_th e_eveni ng} QD Simvastati n 40 MG ProAir HFA 108 (90 Base) MCG/ACT ProAir HFA 108 (90 Base) MCG/ACT No 2{puffs _as_nee ded} QID ProAir HFA 108 (90 Base) MCG/ACT Venlafaxine HCl ER 150 MG Venlafaxine HCl ER 150 MG No Venlafaxin e HCl ER 150 MG HYDROcodone -Acetaminop hen 5-325 MG HYDROcodone -Acetaminop hen 5-325 MG No 1{table t} QD HYDROcodon e-Acetamin ophen 5-325 MG Vitamin D3 85410 UNIT Vitamin D3 12807 UNIT No 1{capsu le} Vitamin D3 91907 UNIT Levothyroxi ne Sodium 50 MCG Levothyroxi ne Sodium 50 MCG No Levothyrox ine Sodium 50 MCG Simvastatin 40 MG Simvastatin 40 MG No Simvastati n 40 MG Venlafaxine HCl ER 75 MG Venlafaxine HCl ER 75 MG No 1{capsu le_with _food} QD Venlafaxin e HCl ER 75 MG Synthroid 25 MCG Synthroid 25 MCG No QD Synthroid 25 MCG Gabapentin 100 MG Gabapentin 100 MG No Gabapentin 100 MG Levothyroxi ne Sodium 25 MCG Levothyroxi ne Sodium 25 MCG No Levothyrox ine Sodium 25 MCG NexIUM 40 MG NexIUM 40 MG No NexIUM 40 MG Aspirin Low Dose 81 MG Aspirin Low Dose 81 MG No Aspirin Low Dose 81 MG Gabapentin 100 MG Gabapentin 100 MG No Gabapentin 100 MG Atenolol 100 MG Atenolol 100 MG No Atenolol 100 MG Trelegy Ellipta 100-62.5-25 MCG/INH Trelegy Ellipta 100-62.5-25 MCG/INH No 1{puff} QD Trelegy Ellipta 100-62.5-2 5 MCG/INH Synthroid 25 MCG Synthroid 25 MCG No QD Synthroid 25 MCG Aspirin 81 MG Aspirin 81 MG No Aspirin 81 MG traZODone HCl 100 MG traZODone HCl 100 MG No traZODone HCl 100 MG HYDROcodone -Acetaminop hen 5-325 MG HYDROcodone -Acetaminop hen 5-325 MG No 1{table t_as_ne eded} QID HYDROcodon e-Acetamin ophen 5-325 MG Furosemide 20 MG Furosemide 20 MG No 1{table t} QD Furosemide 20 MG Atenolol 100 MG Atenolol 100 MG No Atenolol 100 MG Spironolact one 25 MG Spironolact one 25 MG No 1{table t} QD Spironolac tone 25 MG Vitamin D3 89542 UNIT Vitamin D3 60806 UNIT No 1{capsu le} Vitamin D3 26316 UNIT Spironolact one 25 MG Spironolact one 25 MG No 1{table t} QD Spironolac tone 25 MG Venlafaxine HCl ER 75 MG Venlafaxine HCl ER 75 MG No 1{capsu le_with _food} QD Venlafaxin e HCl ER 75 MG Linzess 145 mcg Linzess 145 mcg No 1{capsu le} QD Linzess 145 mcg Aspirin 81 MG Aspirin 81 MG No Aspirin 81 MG Clopidogrel Bisulfate 75 MG Clopidogrel Bisulfate 75 MG No 1{table t} QD Clopidogre l Bisulfate 75 MG ProAir HFA 108 (90 Base) MCG/ACT ProAir HFA 108 (90 Base) MCG/ACT No 2{puffs _as_nee ded} QID ProAir HFA 108 (90 Base) MCG/ACT Zofran 4 MG Zofran 4 MG No 1{table t_as_ne eded} QD Zofran 4 MG Simvastatin 40 MG Simvastatin 40 MG No 1{table t_in_th e_eveni ng} QD Simvastati n 40 MG Venlafaxine HCl ER 150 MG Venlafaxine HCl ER 150 MG No Venlafaxin e HCl ER 150 MG HYDROcodone -Acetaminop hen 5-325 MG HYDROcodone -Acetaminop hen 5-325 MG No 1{table t} QD HYDROcodon e-Acetamin ophen 5-325 MG Vitamin D3 42636 UNIT Vitamin D3 30867 UNIT No 1{capsu le} Vitamin D3 81234 UNIT Linzess 145 mcg Linzess 145 mcg No 1{capsu le} QD Linzess 145 mcg Levothyroxi ne Sodium 50 MCG Levothyroxi ne Sodium 50 MCG No Levothyrox ine Sodium 50 MCG Simvastatin 40 MG Simvastatin 40 MG No Simvastati n 40 MG Nexium 24HR 20 MG Nexium 24HR 20 MG No 1{capsu le} QD Nexium 24HR 20 MG Levothyroxi ne Sodium 50 MCG Levothyroxi ne Sodium 50 MCG No Levothyrox ine Sodium 50 MCG Furosemide 20 MG Furosemide 20 MG No 1{table t} QD Furosemide 20 MG Levothyroxi ne Sodium 25 MCG Levothyroxi ne Sodium 25 MCG No Levothyrox ine Sodium 25 MCG Trelegy Ellipta 100-62.5-25 MCG/INH Trelegy Ellipta 100-62.5-25 MCG/INH No 1{puff} QD Trelegy Ellipta 100-62.5-2 5 MCG/INH NexIUM 40 MG NexIUM 40 MG No NexIUM 40 MG Aspirin Low Dose 81 MG Aspirin Low Dose 81 MG No Aspirin Low Dose 81 MG Gabapentin 100 MG Gabapentin 100 MG No Gabapentin 100 MG Trelegy Ellipta 100-62.5-25 MCG/INH Trelegy Ellipta 100-62.5-25 MCG/INH No 1{puff} QD Trelegy Ellipta 100-62.5-2 5 MCG/INH Synthroid 25 MCG Synthroid 25 MCG No QD Synthroid 25 MCG Aspirin 81 MG Aspirin 81 MG No Aspirin 81 MG traZODone HCl 100 MG traZODone HCl 100 MG No traZODone HCl 100 MG HYDROcodone -Acetaminop hen 5-325 MG HYDROcodone -Acetaminop hen 5-325 MG No 1{table t_as_ne eded} QID HYDROcodon e-Acetamin ophen 5-325 MG Aspirin Low Dose 81 MG Aspirin Low Dose 81 MG No Aspirin Low Dose 81 MG Furosemide 20 MG Furosemide 20 MG No 1{table t} QD Furosemide 20 MG Atenolol 100 MG Atenolol 100 MG No Atenolol 100 MG Spironolact one 25 MG Spironolact one 25 MG No 1{table t} QD Spironolac tone 25 MG Vitamin D3 71459 UNIT Vitamin D3 76708 UNIT No 1{capsu le} Vitamin D3 08705 UNIT Venlafaxine HCl ER 75 MG Venlafaxine HCl ER 75 MG No 1{capsu le_with _food} QD Venlafaxin e HCl ER 75 MG Linzess 145 mcg Linzess 145 mcg No 1{capsu le} QD Linzess 145 mcg Aspirin 81 MG Aspirin 81 MG No Aspirin 81 MG Clopidogrel Bisulfate 75 MG Clopidogrel Bisulfate 75 MG No 1{table t} QD Clopidogre l Bisulfate 75 MG ProAir HFA 108 (90 Base) MCG/ACT ProAir HFA 108 (90 Base) MCG/ACT No 2{puffs _as_nee ded} QID ProAir HFA 108 (90 Base) MCG/ACT Zofran 4 MG Zofran 4 MG No 1{table t_as_ne eded} QD Zofran 4 MG Atenolol 100 MG Atenolol 100 MG No QD Atenolol 100 MG Simvastatin 40 MG Simvastatin 40 MG No 1{table t_in_th e_eveni ng} QD Simvastati n 40 MG Venlafaxine HCl ER 150 MG Venlafaxine HCl ER 150 MG No Venlafaxin e HCl ER 150 MG HYDROcodone -Acetaminop hen 5-325 MG HYDROcodone -Acetaminop hen 5-325 MG No 1{table t} QD HYDROcodon e-Acetamin ophen 5-325 MG Vitamin D3 64102 UNIT Vitamin D3 19702 UNIT No 1{capsu le} Vitamin D3 87144 UNIT Levothyroxi ne Sodium 50 MCG Levothyroxi ne Sodium 50 MCG No Levothyrox ine Sodium 50 MCG Simvastatin 40 MG Simvastatin 40 MG No Simvastati n 40 MG Clopidogrel Bisulfate 75 MG Clopidogrel Bisulfate 75 MG No 1{table t} QD Clopidogre l Bisulfate 75 MG Zofran 4 MG Zofran 4 MG No 1{table t_as_ne eded} TID Zofran 4 MG Aspirin Low Dose 81 MG Aspirin Low Dose 81 MG No Aspirin Low Dose 81 MG NexIUM 40 MG NexIUM 40 MG No NexIUM 40 MG Venlafaxine HCl ER 75 MG Venlafaxine HCl ER 75 MG No 1{capsu le_with _food} QD Venlafaxin e HCl ER 75 MG Trelegy Ellipta 100-62.5-25 MCG/INH Trelegy Ellipta 100-62.5-25 MCG/INH No 1{puff} QD Trelegy Ellipta 100-62.5-2 5 MCG/INH Vitamin D3 98704 UNIT Vitamin D3 23850 UNIT No 1{capsu le} Vitamin D3 05849 UNIT Atenolol 100 MG Atenolol 100 MG No 1{table t} QD Atenolol 100 MG Synthroid 25 MCG Synthroid 25 MCG No QD Synthroid 25 MCG Furosemide 20 MG Furosemide 20 MG No 1{table t} QD Furosemide 20 MG Aspirin 81 MG Aspirin 81 MG No Aspirin 81 MG Simvastatin 40 MG Simvastatin 40 MG No Simvastati n 40 MG Simvastatin 40 MG Simvastatin 40 MG No 1{table t_in_th e_eveni ng} QD Simvastati n 40 MG ProAir HFA 108 (90 Base) MCG/ACT ProAir HFA 108 (90 Base) MCG/ACT No 2{puffs _as_nee ded} QID ProAir HFA 108 (90 Base) MCG/ACT HYDROcodone -Acetaminop hen 5-325 MG HYDROcodone -Acetaminop hen 5-325 MG No 1{table t_as_ne eded} QID HYDROcodon e-Acetamin ophen 5-325 MG Aspirin 81 MG Aspirin 81 MG No Aspirin 81 MG Spironolact one 25 MG Spironolact one 25 MG No 1{table t} QD Spironolac tone 25 MG Gabapentin 100 MG Gabapentin 100 MG No Gabapentin 100 MG Levothyroxi ne Sodium 25 MCG Levothyroxi ne Sodium 25 MCG No Levothyrox ine Sodium 25 MCG Linzess 145 mcg Linzess 145 mcg No 1{capsu le} QD Linzess 145 mcg Clopidogrel Bisulfate 75 MG Clopidogrel Bisulfate 75 MG No 1{table t} QD Clopidogre l Bisulfate 75 MG HYDROcodone -Acetaminop hen 5-325 MG HYDROcodone -Acetaminop hen 5-325 MG No 1{table t} QD HYDROcodon e-Acetamin ophen 5-325 MG traZODone HCl 100 MG traZODone HCl 100 MG No traZODone HCl 100 MG Vitamin D3 51579 UNIT Vitamin D3 60066 UNIT No 1{capsu le} Vitamin D3 01454 UNIT Levothyroxi ne Sodium 50 MCG Levothyroxi ne Sodium 50 MCG No Levothyrox ine Sodium 50 MCG Venlafaxine HCl ER 150 MG Venlafaxine HCl ER 150 MG No Venlafaxin e HCl ER 150 MG Atenolol 100 MG Atenolol 100 MG No Atenolol 100 MG Zofran 4 MG Zofran 4 MG No 1{table t_as_ne eded} QD Zofran 4 MG Vitamin D3 81360 UNIT Vitamin D3 43628 UNIT No 1{capsu le} Vitamin D3 38794 UNIT Synthroid 25 MCG Synthroid 25 MCG No QD Synthroid 25 MCG Furosemide 20 MG Furosemide 20 MG No 1{table t} QD Furosemide 20 MG Aspirin 81 MG Aspirin 81 MG No Aspirin 81 MG Atenolol 100 MG Atenolol 100 MG No Atenolol 100 MG Simvastatin 40 MG Simvastatin 40 MG No 1{table t_in_th e_eveni ng} QD Simvastati n 40 MG ProAir HFA 108 (90 Base) MCG/ACT ProAir HFA 108 (90 Base) MCG/ACT No 2{puffs _as_nee ded} QID ProAir HFA 108 (90 Base) MCG/ACT Levothyroxi ne Sodium 25 MCG Levothyroxi ne Sodium 25 MCG No Levothyrox ine Sodium 25 MCG Simvastatin 40 MG Simvastatin 40 MG No Simvastati n 40 MG Gabapentin 100 MG Gabapentin 100 MG No Gabapentin 100 MG HYDROcodone -Acetaminop hen 5-325 MG HYDROcodone -Acetaminop hen 5-325 MG No 1{table t_as_ne eded} QID HYDROcodon e-Acetamin ophen 5-325 MG HYDROcodone -Acetaminop hen 5-325 MG HYDROcodone -Acetaminop hen 5-325 MG No 1{table t} QD HYDROcodon e-Acetamin ophen 5-325 MG Venlafaxine HCl ER 75 MG Venlafaxine HCl ER 75 MG No 1{capsu le_with _food} QD Venlafaxin e HCl ER 75 MG Trelegy Ellipta 100-62.5-25 MCG/INH Trelegy Ellipta 100-62.5-25 MCG/INH No 1{puff} QD Trelegy Ellipta 100-62.5-2 5 MCG/INH Vitamin D3 71210 UNIT Vitamin D3 16691 UNIT No 1{capsu le} Vitamin D3 89798 UNIT traZODone HCl 100 MG traZODone HCl 100 MG No traZODone HCl 100 MG Clopidogrel Bisulfate 75 MG Clopidogrel Bisulfate 75 MG No 1{table t} QD Clopidogre l Bisulfate 75 MG NexIUM 40 MG NexIUM 40 MG No NexIUM 40 MG Linzess 145 mcg Linzess 145 mcg No 1{capsu le} QD Linzess 145 mcg Aspirin Low Dose 81 MG Aspirin Low Dose 81 MG No Aspirin Low Dose 81 MG Aspirin 81 MG Aspirin 81 MG No Aspirin 81 MG Spironolact one 25 MG Spironolact one 25 MG No 1{table t} QD Spironolac tone 25 MG Levothyroxi ne Sodium 50 MCG Levothyroxi ne Sodium 50 MCG No Levothyrox ine Sodium 50 MCG Venlafaxine HCl ER 150 MG Venlafaxine HCl ER 150 MG No Venlafaxin e HCl ER 150 MG Zofran 4 MG Zofran 4 MG No 1{table t_as_ne eded} QD Zofran 4 MG Venlafaxine HCl ER 75 MG Venlafaxine HCl ER 75 MG No 1{capsu le_with _food} QD Venlafaxin e HCl ER 75 MG Vitamin D3 09941 UNIT Vitamin D3 34488 UNIT No 1{capsu le} Vitamin D3 28771 UNIT Gabapentin 100 MG Gabapentin 100 MG No Gabapentin 100 MG Levothyroxi ne Sodium 50 MCG Levothyroxi ne Sodium 50 MCG No Levothyrox ine Sodium 50 MCG Levothyroxi ne Sodium 25 MCG Levothyroxi ne Sodium 25 MCG No Levothyrox ine Sodium 25 MCG Synthroid 25 MCG Synthroid 25 MCG No QD Synthroid 25 MCG HYDROcodone -Acetaminop hen 5-325 MG HYDROcodone -Acetaminop hen 5-325 MG No 1{table t_as_ne eded} QID HYDROcodon e-Acetamin ophen 5-325 MG NexIUM 40 MG NexIUM 40 MG No NexIUM 40 MG Trelegy Ellipta 100-62.5-25 MCG/INH Trelegy Ellipta 100-62.5-25 MCG/INH No 1{puff} QD Trelegy Ellipta 100-62.5-2 5 MCG/INH Aspirin 81 MG Aspirin 81 MG No Aspirin 81 MG Clopidogrel Bisulfate 75 MG Clopidogrel Bisulfate 75 MG No 1{table t} QD Clopidogre l Bisulfate 75 MG Aspirin 81 MG Aspirin 81 MG No Aspirin 81 MG Venlafaxine HCl ER 150 MG Venlafaxine HCl ER 150 MG No Venlafaxin e HCl ER 150 MG Gabapentin 100 MG Gabapentin 100 MG No Gabapentin 100 MG Zofran 4 MG Zofran 4 MG No 1{table t_as_ne eded} QD Zofran 4 MG traZODone HCl 100 MG traZODone HCl 100 MG No traZODone HCl 100 MG ProAir HFA 108 (90 Base) MCG/ACT ProAir HFA 108 (90 Base) MCG/ACT No 2{puffs _as_nee ded} QID ProAir HFA 108 (90 Base) MCG/ACT HYDROcodone -Acetaminop hen 5-325 MG HYDROcodone -Acetaminop hen 5-325 MG No 1{table t} QD HYDROcodon e-Acetamin ophen 5-325 MG Simvastatin 40 MG Simvastatin 40 MG No Simvastati n 40 MG Venlafaxine HCl ER 75 MG Venlafaxine HCl ER 75 MG No 1{capsu le_with _food} QD Venlafaxin e HCl ER 75 MG Aspirin Low Dose 81 MG Aspirin Low Dose 81 MG No Aspirin Low Dose 81 MG Linzess 145 mcg Linzess 145 mcg No 1{capsu le} QD Linzess 145 mcg Spironolact one 25 MG Spironolact one 25 MG No 1{table t} QD Spironolac tone 25 MG Atenolol 100 MG Atenolol 100 MG No QD Atenolol 100 MG Furosemide 20 MG Furosemide 20 MG No 1{table t} QD Furosemide 20 MG Vitamin D3 37386 UNIT Vitamin D3 16656 UNIT No 1{capsu le} Vitamin D3 77410 UNIT Simvastatin 40 MG Simvastatin 40 MG No 1{table t_in_th e_eveni ng} QD Simvastati n 40 MG Levothyroxi ne Sodium 50 MCG Levothyroxi ne Sodium 50 MCG No Levothyrox ine Sodium 50 MCG Atenolol 100 MG Atenolol 100 MG No Atenolol 100 MG Hydrocodone -Acetaminop hen 5-325 MG Hydrocodone -Acetaminop hen 5-325 MG No 1{table t_as_ne eded} QID Hydrocodon e-Acetamin ophen 5-325 MG Trelegy Ellipta 100-62.5-25 MCG/INH Trelegy Ellipta 100-62.5-25 MCG/INH No 1{puff} QD Trelegy Ellipta 100-62.5-2 5 MCG/INH Zofran 4 MG Zofran 4 MG No 1{table t_as_ne eded} TID Zofran 4 MG Vitamin D3 83408 UNIT Vitamin D3 97690 UNIT No 1{capsu le} Vitamin D3 54928 UNIT Gabapentin 100 MG Gabapentin 100 MG No Gabapentin 100 MG Aspirin 81 MG Aspirin 81 MG No Aspirin 81 MG Levothyroxi ne Sodium 25 MCG Levothyroxi ne Sodium 25 MCG No Levothyrox ine Sodium 25 MCG Synthroid 25 MCG Synthroid 25 MCG No QD Synthroid 25 MCG HYDROcodone -Acetaminop hen 5-325 MG HYDROcodone -Acetaminop hen 5-325 MG No 1{table t_as_ne eded} QID HYDROcodon e-Acetamin ophen 5-325 MG NexIUM 40 MG NexIUM 40 MG No NexIUM 40 MG Trelegy Ellipta 100-62.5-25 MCG/INH Trelegy Ellipta 100-62.5-25 MCG/INH No 1{puff} QD Trelegy Ellipta 100-62.5-2 5 MCG/INH Aspirin 81 MG Aspirin 81 MG No Aspirin 81 MG Clopidogrel Bisulfate 75 MG Clopidogrel Bisulfate 75 MG No 1{table t} QD Clopidogre l Bisulfate 75 MG Aspirin 81 MG Aspirin 81 MG No Aspirin 81 MG Venlafaxine HCl ER 150 MG Venlafaxine HCl ER 150 MG No Venlafaxin e HCl ER 150 MG Nexium 40 MG Nexium 40 MG No Nexium 40 MG Zofran 4 MG Zofran 4 MG No 1{table t_as_ne eded} QD Zofran 4 MG traZODone HCl 100 MG traZODone HCl 100 MG No traZODone HCl 100 MG ProAir HFA 108 (90 Base) MCG/ACT ProAir HFA 108 (90 Base) MCG/ACT No 2{puffs _as_nee ded} QID ProAir HFA 108 (90 Base) MCG/ACT HYDROcodone -Acetaminop hen 5-325 MG HYDROcodone -Acetaminop hen 5-325 MG No 1{table t} QD HYDROcodon e-Acetamin ophen 5-325 MG Simvastatin 40 MG Simvastatin 40 MG No Simvastati n 40 MG Venlafaxine HCl ER 75 MG Venlafaxine HCl ER 75 MG No 1{capsu le_with _food} QD Venlafaxin e HCl ER 75 MG Aspirin Low Dose 81 MG Aspirin Low Dose 81 MG No Aspirin Low Dose 81 MG Linzess 145 mcg Linzess 145 mcg No 1{capsu le} QD Linzess 145 mcg Spironolact one 25 MG Spironolact one 25 MG No 1{table t} QD Spironolac tone 25 MG Synthroid 25 MCG Synthroid 25 MCG No QD Synthroid 25 MCG Furosemide 20 MG Furosemide 20 MG No 1{table t} QD Furosemide 20 MG Vitamin D3 39385 UNIT Vitamin D3 14328 UNIT No 1{capsu le} Vitamin D3 34644 UNIT Simvastatin 40 MG Simvastatin 40 MG No 1{table t_in_th e_eveni ng} QD Simvastati n 40 MG Levothyroxi ne Sodium 50 MCG Levothyroxi ne Sodium 50 MCG No Levothyrox ine Sodium 50 MCG Atenolol 100 MG Atenolol 100 MG No Atenolol 100 MG Aspirin Low Dose 81 MG Aspirin Low Dose 81 MG No Aspirin Low Dose 81 MG Furosemide 20 MG Furosemide 20 MG No 1{table t} QD Furosemide 20 MG Clopidogrel Bisulfate 75 MG Clopidogrel Bisulfate 75 MG No 1{table t} QD Clopidogre l Bisulfate 75 MG Aspirin Low Dose 81 MG Aspirin Low Dose 81 MG No Aspirin Low Dose 81 MG Aspirin 81 MG Aspirin 81 MG No Aspirin 81 MG Gabapentin 100 MG Gabapentin 100 MG No Gabapentin 100 MG HYDROcodone -Acetaminop hen 5-325 MG HYDROcodone -Acetaminop hen 5-325 MG No 1{table t_as_ne eded} QID HYDROcodon e-Acetamin ophen 5-325 MG Levothyroxi ne Sodium 25 MCG Levothyroxi ne Sodium 25 MCG No Levothyrox ine Sodium 25 MCG Linzess 145 mcg Linzess 145 mcg No 1{capsu le} QD Linzess 145 mcg Atenolol 100 MG Atenolol 100 MG No Atenolol 100 MG Vitamin D3 76949 UNIT Vitamin D3 65159 UNIT No 1{capsu le} Vitamin D3 73350 UNIT Trelegy Ellipta 100-62.5-25 MCG/INH Trelegy Ellipta 100-62.5-25 MCG/INH No 1{puff} QD Trelegy Ellipta 100-62.5-2 5 MCG/INH NexIUM 40 MG NexIUM 40 MG No NexIUM 40 MG Venlafaxine HCl ER 150 MG Venlafaxine HCl ER 150 MG No Venlafaxin e HCl ER 150 MG Zofran 4 MG Zofran 4 MG No 1{table t_as_ne eded} QD Zofran 4 MG Aspirin 81 MG Aspirin 81 MG No Aspirin 81 MG traZODone HCl 100 MG traZODone HCl 100 MG No traZODone HCl 100 MG Venlafaxine HCl ER 75 MG Venlafaxine HCl ER 75 MG No 1{capsu le_with _food} QD Venlafaxin e HCl ER 75 MG HYDROcodone -Acetaminop hen 5-325 MG HYDROcodone -Acetaminop hen 5-325 MG No 1{table t} QD HYDROcodon e-Acetamin ophen 5-325 MG Simvastatin 40 MG Simvastatin 40 MG No 1{table t_in_th e_eveni ng} QD Simvastati n 40 MG ProAir HFA 108 (90 Base) MCG/ACT ProAir HFA 108 (90 Base) MCG/ACT No 2{puffs _as_nee ded} QID ProAir HFA 108 (90 Base) MCG/ACT Clopidogrel Bisulfate 75 MG Clopidogrel Bisulfate 75 MG No 1{table t} QD Clopidogre l Bisulfate 75 MG Synthroid 25 MCG Synthroid 25 MCG No QD Synthroid 25 MCG Linzess 145 mcg Linzess 145 mcg No 1{capsu le} QD Linzess 145 mcg Simvastatin 40 MG Simvastatin 40 MG No Simvastati n 40 MG Levothyroxi ne Sodium 50 MCG Levothyroxi ne Sodium 50 MCG No Levothyrox ine Sodium 50 MCG Spironolact one 25 MG Spironolact one 25 MG No 1{table t} QD Spironolac tone 25 MG Vitamin D3 77742 UNIT Vitamin D3 05656 UNIT No 1{capsu le} Vitamin D3 81935 UNIT Hydrocodone -Acetaminop hen 5-325 MG Hydrocodone -Acetaminop hen 5-325 MG No 1{table t} QD Hydrocodon e-Acetamin ophen 5-325 MG Furosemide 20 MG Furosemide 20 MG No 1{table t} QD Furosemide 20 MG Spironolact one 25 MG Spironolact one 25 MG No 1{table t} QD Spironolac tone 25 MG ProAir HFA 108 (90 Base) MCG/ACT ProAir HFA 108 (90 Base) MCG/ACT No 2{puffs _as_nee ded} QID ProAir HFA 108 (90 Base) MCG/ACT Aspirin 81 MG Aspirin 81 MG No Aspirin 81 MG Furosemide 20 MG Furosemide 20 MG No 1{table t} QD Furosemide 20 MG Synthroid 25 MCG Synthroid 25 MCG No QD Synthroid 25 MCG Atenolol 100 MG Atenolol 100 MG No QD Atenolol 100 MG HYDROcodone -Acetaminop hen 5-325 MG HYDROcodone -Acetaminop hen 5-325 MG No 1{table t} QD HYDROcodon e-Acetamin ophen 5-325 MG NexIUM 40 MG NexIUM 40 MG No NexIUM 40 MG Zofran 4 MG Zofran 4 MG No 1{table t_as_ne eded} QD Zofran 4 MG Aspirin 81 MG Aspirin 81 MG No Aspirin 81 MG Linzess 145 mcg Linzess 145 mcg No 1{capsu le} QD Linzess 145 mcg Trelegy Ellipta 100-62.5-25 MCG/INH Trelegy Ellipta 100-62.5-25 MCG/INH No 1{puff} QD Trelegy Ellipta 100-62.5-2 5 MCG/INH Venlafaxine HCl ER 150 MG Venlafaxine HCl ER 150 MG No Venlafaxin e HCl ER 150 MG Simvastatin 40 MG Simvastatin 40 MG No 1{table t_in_th e_eveni ng} QD Simvastati n 40 MG Venlafaxine HCl ER 75 MG Venlafaxine HCl ER 75 MG No 1{capsu le_with _food} QD Venlafaxin e HCl ER 75 MG traZODone HCl 100 MG traZODone HCl 100 MG No traZODone HCl 100 MG Atenolol 100 MG Atenolol 100 MG No Atenolol 100 MG Spironolact one 25 MG Spironolact one 25 MG No 1{table t} QD Spironolac tone 25 MG Venlafaxine HCl ER 150 MG Venlafaxine HCl ER 150 MG No QD Venlafaxin e HCl ER 150 MG Clopidogrel Bisulfate 75 MG Clopidogrel Bisulfate 75 MG No 1{table t} QD Clopidogre l Bisulfate 75 MG ProAir HFA 108 (90 Base) MCG/ACT ProAir HFA 108 (90 Base) MCG/ACT No 2{puffs _as_nee ded} QID ProAir HFA 108 (90 Base) MCG/ACT Gabapentin 100 MG Gabapentin 100 MG No Gabapentin 100 MG Simvastatin 40 MG Simvastatin 40 MG No Simvastati n 40 MG Aspirin Low Dose 81 MG Aspirin Low Dose 81 MG No Aspirin Low Dose 81 MG Vitamin D3 51877 UNIT Vitamin D3 08429 UNIT No 1{capsu le} Vitamin D3 38594 UNIT Levothyroxi ne Sodium 25 MCG Levothyroxi ne Sodium 25 MCG No Levothyrox ine Sodium 25 MCG Aspirin 81 MG Aspirin 81 MG No Aspirin 81 MG HYDROcodone -Acetaminop hen 5-325 MG HYDROcodone -Acetaminop hen 5-325 MG No 1{table t_as_ne eded} QID HYDROcodon e-Acetamin ophen 5-325 MG traZODone HCl 100 MG traZODone HCl 100 MG No traZODone HCl 100 MG Trelegy Ellipta 100-62.5-25 MCG/INH Trelegy Ellipta 100-62.5-25 MCG/INH No 1{puff} QD Trelegy Ellipta 100-62.5-2 5 MCG/INH HYDROcodone -Acetaminop hen 5-325 MG HYDROcodone -Acetaminop hen 5-325 MG No 1{table t_as_ne eded} QID HYDROcodon e-Acetamin ophen 5-325 MG Synthroid 25 MCG Synthroid 25 MCG No QD Synthroid 25 MCG NexIUM 40 MG NexIUM 40 MG No NexIUM 40 MG Gabapentin 100 MG Gabapentin 100 MG No Gabapentin 100 MG Aspirin 81 MG Aspirin 81 MG No Aspirin 81 MG Aspirin Low Dose 81 MG Aspirin Low Dose 81 MG No Aspirin Low Dose 81 MG Aspirin 81 MG Aspirin 81 MG No Aspirin 81 MG Venlafaxine HCl ER 150 MG Venlafaxine HCl ER 150 MG No Venlafaxin e HCl ER 150 MG Spironolact one 25 MG Spironolact one 25 MG No 1{table t} QD Spironolac tone 25 MG Simvastatin 40 MG Simvastatin 40 MG No Simvastati n 40 MG Venlafaxine HCl ER 75 MG Venlafaxine HCl ER 75 MG No 1{capsu le_with _food} QD Venlafaxin e HCl ER 75 MG Linzess 145 mcg Linzess 145 mcg No 1{capsu le} QD Linzess 145 mcg Atenolol 100 MG Atenolol 100 MG No Atenolol 100 MG ProAir HFA 108 (90 Base) MCG/ACT ProAir HFA 108 (90 Base) MCG/ACT No 2{puffs _as_nee ded} QID ProAir HFA 108 (90 Base) MCG/ACT Clopidogrel Bisulfate 75 MG Clopidogrel Bisulfate 75 MG No 1{table t} QD Clopidogre l Bisulfate 75 MG HYDROcodone -Acetaminop hen 5-325 MG HYDROcodone -Acetaminop hen 5-325 MG No 1{table t} QD HYDROcodon e-Acetamin ophen 5-325 MG Levothyroxi ne Sodium 25 MCG Levothyroxi ne Sodium 25 MCG No Levothyrox ine Sodium 25 MCG Zofran 4 MG Zofran 4 MG No 1{table t_as_ne eded} QD Zofran 4 MG Venlafaxine HCl ER 150 MG Venlafaxine HCl ER 150 MG No QD Venlafaxin e HCl ER 150 MG Atenolol 100 MG Atenolol 100 MG No QD Atenolol 100 MG Simvastatin 40 MG Simvastatin 40 MG No 1{table t_in_th e_eveni ng} QD Simvastati n 40 MG Furosemide 20 MG Furosemide 20 MG No 1{table t} QD Furosemide 20 MG Vitamin D3 1.25 MG (90490 UT) Vitamin D3 1.25 MG (86452 UT) No Vitamin D3 1.25 MG ( UT) Atenolol 100 MG Atenolol 100 MG No Atenolol 100 MG Simvastatin 40 MG Simvastatin 40 MG No 1{table t_in_ e_eveni ng} QD Simvastati n 40 MG Aspirin Low Dose 81 MG Aspirin Low Dose 81 MG No Aspirin Low Dose 81 MG Atenolol 100 MG Atenolol 100 MG No QD Atenolol 100 MG Levothyroxi ne Sodium 25 MCG Levothyroxi ne Sodium 25 MCG No Levothyrox ine Sodium 25 MCG HYDROcodone -Acetaminop hen 5-325 MG HYDROcodone -Acetaminop hen 5-325 MG No 1{table t} QD HYDROcodon e-Acetamin ophen 5-325 MG Simvastatin 40 MG Simvastatin 40 MG No Simvastati n 40 MG Spironolact one 25 MG Spironolact one 25 MG No 1{table t} QD Spironolac tone 25 MG Vitamin D3 1.25 MG (69910 UT) Vitamin D3 1.25 MG (81994 UT) No Vitamin D3 1.25 MG (78595 UT) Clopidogrel Bisulfate 75 MG Clopidogrel Bisulfate 75 MG No 1{table t} QD Clopidogre l Bisulfate 75 MG Venlafaxine HCl ER 75 MG Venlafaxine HCl ER 75 MG No 1{capsu le_with _food} QD Venlafaxin e HCl ER 75 MG traZODone HCl 100 MG traZODone HCl 100 MG No traZODone HCl 100 MG Aspirin 81 MG Aspirin 81 MG No Aspirin 81 MG Zofran 4 MG Zofran 4 MG No 1{table t_as_ne eded} QD Zofran 4 MG ProAir HFA 108 (90 Base) MCG/ACT ProAir HFA 108 (90 Base) MCG/ACT No 2{puffs _as_nee ded} QID ProAir HFA 108 (90 Base) MCG/ACT Synthroid 25 MCG Synthroid 25 MCG No QD Synthroid 25 MCG Linzess 145 mcg Linzess 145 mcg No 1{capsu le} QD Linzess 145 mcg HYDROcodone -Acetaminop hen 5-325 MG HYDROcodone -Acetaminop hen 5-325 MG No 1{table t_as_ne eded} QID HYDROcodon e-Acetamin ophen 5-325 MG Gabapentin 100 MG Gabapentin 100 MG No Gabapentin 100 MG Aspirin 81 MG Aspirin 81 MG No Aspirin 81 MG Furosemide 20 MG Furosemide 20 MG No 1{table t} QD Furosemide 20 MG NexIUM 40 MG NexIUM 40 MG No NexIUM 40 MG Aspirin Low Dose 81 MG Aspirin Low Dose 81 MG No Aspirin Low Dose 81 MG Aspirin 81 MG Aspirin 81 MG No Aspirin 81 MG Venlafaxine HCl ER 150 MG Venlafaxine HCl ER 150 MG No Venlafaxin e HCl ER 150 MG Trelegy Ellipta 100-62.5-25 MCG/INH Trelegy Ellipta 100-62.5-25 MCG/INH No 1{puff} QD Trelegy Ellipta 100-62.5-2 5 MCG/INH Zofran 4 MG Zofran 4 MG No 1{table t_as_ne eded} TID Zofran 4 MG ProAir HFA 108 (90 Base) MCG/ACT ProAir HFA 108 (90 Base) MCG/ACT No 2{puffs _as_nee ded} QID ProAir HFA 108 (90 Base) MCG/ACT Clopidogrel Bisulfate 75 MG Clopidogrel Bisulfate 75 MG No 1{table t} QD Clopidogre l Bisulfate 75 MG Hydrocodone -Acetaminop hen 5-325 MG Hydrocodone -Acetaminop hen 5-325 MG No 1{table t} QD Hydrocodon e-Acetamin ophen 5-325 MG Vitamin D3 1.25 MG (60769 UT) Vitamin D3 1.25 MG (99948 UT) No Vitamin D3 1.25 MG (23431 UT) HYDROcodone -Acetaminop hen 5-325 MG HYDROcodone -Acetaminop hen 5-325 MG No 1{table t} QD HYDROcodon e-Acetamin ophen 5-325 MG Aspirin Low Dose 81 MG Aspirin Low Dose 81 MG No Aspirin Low Dose 81 MG Trelegy Ellipta 100-62.5-25 MCG/INH Trelegy Ellipta 100-62.5-25 MCG/INH No 1{puff} QD Trelegy Ellipta 100-62.5-2 5 MCG/INH Simvastatin 40 MG Simvastatin 40 MG No Simvastati n 40 MG Linzess 145 mcg Linzess 145 mcg No 1{capsu le} QD Linzess 145 mcg Synthroid 25 MCG Synthroid 25 MCG No QD Synthroid 25 MCG Aspirin 81 MG Aspirin 81 MG No Aspirin 81 MG Atenolol 100 MG Atenolol 100 MG No QD Atenolol 100 MG Venlafaxine HCl ER 150 MG Venlafaxine HCl ER 150 MG No Venlafaxin e HCl ER 150 MG NexIUM 40 MG NexIUM 40 MG No NexIUM 40 MG Atenolol 100 MG Atenolol 100 MG No Atenolol 100 MG ProAir HFA 108 (90 Base) MCG/ACT ProAir HFA 108 (90 Base) MCG/ACT No 2{puffs _as_nee ded} QID ProAir HFA 108 (90 Base) MCG/ACT HYDROcodone -Acetaminop hen 5-325 MG HYDROcodone -Acetaminop hen 5-325 MG No 1{table t_as_ne eded} QID HYDROcodon e-Acetamin ophen 5-325 MG Furosemide 20 MG Furosemide 20 MG No 1{table t} QD Furosemide 20 MG Levothyroxi ne Sodium 25 MCG Levothyroxi ne Sodium 25 MCG No Levothyrox ine Sodium 25 MCG Aspirin 81 MG Aspirin 81 MG No Aspirin 81 MG Gabapentin 100 MG Gabapentin 100 MG No Gabapentin 100 MG Venlafaxine HCl ER 75 MG Venlafaxine HCl ER 75 MG No 1{capsu le_with _food} QD Venlafaxin e HCl ER 75 MG Zofran 4 MG Zofran 4 MG No 1{table t_as_ne eded} QD Zofran 4 MG traZODone HCl 100 MG traZODone HCl 100 MG No traZODone HCl 100 MG Spironolact one 25 MG Spironolact one 25 MG No 1{table t} QD Spironolac tone 25 MG Trelegy Ellipta 100-62.5-25 MCG/INH Trelegy Ellipta 100-62.5-25 MCG/INH No 1{puff} QD Trelegy Ellipta 100-62.5-2 5 MCG/INH Furosemide 20 MG Furosemide 20 MG No 1{table t} QD Furosemide 20 MG Clopidogrel Bisulfate 75 MG Clopidogrel Bisulfate 75 MG No 1{table t} QD Clopidogre l Bisulfate 75 MG Atenolol 100 MG Atenolol 100 MG No QD Atenolol 100 MG Linzess 145 mcg Linzess 145 mcg No 1{capsu le} QD Linzess 145 mcg Levothyroxi ne Sodium 50 MCG Levothyroxi ne Sodium 50 MCG No Levothyrox ine Sodium 50 MCG Vitamin D3 1.25 MG (69567 UT) Vitamin D3 1.25 MG (92168 UT) No Vitamin D3 1.25 MG (25730 UT) HYDROcodone -Acetaminop hen 5-325 MG HYDROcodone -Acetaminop hen 5-325 MG No 1{table t} QD HYDROcodon e-Acetamin ophen 5-325 MG Aspirin Low Dose 81 MG Aspirin Low Dose 81 MG No Aspirin Low Dose 81 MG Simvastatin 40 MG Simvastatin 40 MG No Simvastati n 40 MG Synthroid 25 MCG Synthroid 25 MCG No QD Synthroid 25 MCG Linzess 145 mcg Linzess 145 mcg No 1{capsu le} QD Linzess 145 mcg Synthroid 25 MCG Synthroid 25 MCG No QD Synthroid 25 MCG Aspirin 81 MG Aspirin 81 MG No Aspirin 81 MG Atenolol 100 MG Atenolol 100 MG No QD Atenolol 100 MG Venlafaxine HCl ER 150 MG Venlafaxine HCl ER 150 MG No Venlafaxin e HCl ER 150 MG NexIUM 40 MG NexIUM 40 MG No NexIUM 40 MG Atenolol 100 MG Atenolol 100 MG No Atenolol 100 MG ProAir HFA 108 (90 Base) MCG/ACT ProAir HFA 108 (90 Base) MCG/ACT No 2{puffs _as_nee ded} QID ProAir HFA 108 (90 Base) MCG/ACT HYDROcodone -Acetaminop hen 5-325 MG HYDROcodone -Acetaminop hen 5-325 MG No 1{table t_as_ne eded} QID HYDROcodon e-Acetamin ophen 5-325 MG Levothyroxi ne Sodium 25 MCG Levothyroxi ne Sodium 25 MCG No Levothyrox ine Sodium 25 MCG Nexium 40 MG Nexium 40 MG No Nexium 40 MG Aspirin 81 MG Aspirin 81 MG No Aspirin 81 MG Gabapentin 100 MG Gabapentin 100 MG No Gabapentin 100 MG Venlafaxine HCl ER 75 MG Venlafaxine HCl ER 75 MG No 1{capsu le_with _food} QD Venlafaxin e HCl ER 75 MG Zofran 4 MG Zofran 4 MG No 1{table t_as_ne eded} QD Zofran 4 MG traZODone HCl 100 MG traZODone HCl 100 MG No traZODone HCl 100 MG Spironolact one 25 MG Spironolact one 25 MG No 1{table t} QD Spironolac tone 25 MG Trelegy Ellipta 100-62.5-25 MCG/INH Trelegy Ellipta 100-62.5-25 MCG/INH No 1{puff} QD Trelegy Ellipta 100-62.5-2 5 MCG/INH Furosemide 20 MG Furosemide 20 MG No 1{table t} QD Furosemide 20 MG Clopidogrel Bisulfate 75 MG Clopidogrel Bisulfate 75 MG No 1{table t} QD Clopidogre l Bisulfate 75 MG Venlafaxine HCl ER 75 MG Venlafaxine HCl ER 75 MG No 1{capsu le_with _food} QD Venlafaxin e HCl ER 75 MG Hydrocodone -Acetaminop hen 5-325 MG Hydrocodone -Acetaminop hen 5-325 MG No 1{table t_as_ne eded} QID Hydrocodon e-Acetamin ophen 5-325 MG Spironolact one 25 MG Spironolact one 25 MG No 1{table t} QD Spironolac tone 25 MG Simvastatin 40 MG Simvastatin 40 MG No 1{table t_in_th e_eveni ng} QD Simvastati n 40 MG Aspirin 81 MG Aspirin 81 MG No Aspirin 81 MG Gabapentin 100 MG Gabapentin 100 MG No Gabapentin 100 MG Aspirin 81 MG Aspirin 81 MG No Aspirin 81 MG Spironolact one 25 MG Spironolact one 25 MG No 1{table t} QD Spironolac tone 25 MG Furosemide 20 MG Furosemide 20 MG No 1{table t} QD Furosemide 20 MG HYDROcodone -Acetaminop hen 5-325 MG HYDROcodone -Acetaminop hen 5-325 MG No 1{table t} QD HYDROcodon e-Acetamin ophen 5-325 MG Atenolol 100 MG Atenolol 100 MG No QD Atenolol 100 MG Levothyroxi ne Sodium 25 MCG Levothyroxi ne Sodium 25 MCG No Levothyrox ine Sodium 25 MCG Simvastatin 40 MG Simvastatin 40 MG No 1{table t_in_th e_eveni ng} QD Simvastati n 40 MG NexIUM 40 MG NexIUM 40 MG No NexIUM 40 MG Atenolol 100 MG Atenolol 100 MG No Atenolol 100 MG HYDROcodone -Acetaminop hen 5-325 MG HYDROcodone -Acetaminop hen 5-325 MG No 1{table t_as_ne eded} QID HYDROcodon e-Acetamin ophen 5-325 MG Aspirin 81 MG Aspirin 81 MG No Aspirin 81 MG Venlafaxine HCl ER 150 MG Venlafaxine HCl ER 150 MG No Venlafaxin e HCl ER 150 MG Aspirin Low Dose 81 MG Aspirin Low Dose 81 MG No Aspirin Low Dose 81 MG Zofran 4 MG Zofran 4 MG No 1{table t_as_ne eded} QD Zofran 4 MG Gabapentin 100 MG Gabapentin 100 MG No Gabapentin 100 MG Venlafaxine HCl ER 75 MG Venlafaxine HCl ER 75 MG No 1{capsu le_with _food} QD Venlafaxin e HCl ER 75 MG Trelegy Ellipta 100-62.5-25 MCG/INH Trelegy Ellipta 100-62.5-25 MCG/INH No 1{puff} QD Trelegy Ellipta 100-62.5-2 5 MCG/INH Linzess 145 mcg Linzess 145 mcg No 1{capsu le} QD Linzess 145 mcg Vitamin D3 1.25 MG (59950 UT) Vitamin D3 1.25 MG (98893 UT) No Vitamin D3 1.25 MG (34467 UT) Venlafaxine HCl ER 150 MG Venlafaxine HCl ER 150 MG No QD Venlafaxin e HCl ER 150 MG traZODone HCl 100 MG traZODone HCl 100 MG No traZODone HCl 100 MG Simvastatin 40 MG Simvastatin 40 MG No Simvastati n 40 MG Synthroid 25 MCG Synthroid 25 MCG No QD Synthroid 25 MCG Rosuvastati n Calcium 20 MG Rosuvastati n Calcium 20 MG No Rosuvastat in Calcium 20 MG ProAir HFA 108 (90 Base) MCG/ACT ProAir HFA 108 (90 Base) MCG/ACT No 2{puffs _as_nee ded} QID ProAir HFA 108 (90 Base) MCG/ACT Clopidogrel Bisulfate 75 MG Clopidogrel Bisulfate 75 MG No 1{table t} QD Clopidogre l Bisulfate 75 MG Simvastatin 40 MG Simvastatin 40 MG No 1{table t_in_th e_eveni ng} QD Simvastati n 40 MG Vitamin D3 1.25 MG ( UT) Vitamin D3 1.25 MG ( UT) No Vitamin D3 1.25 MG ( UT) Aspirin 81 MG Aspirin 81 MG No Aspirin 81 MG Spironolact one 25 MG Spironolact one 25 MG No 1{table t} QD Spironolac tone 25 MG NexIUM 40 MG NexIUM 40 MG No NexIUM 40 MG Levothyroxi ne Sodium 25 MCG Levothyroxi ne Sodium 25 MCG No Levothyrox ine Sodium 25 MCG Atenolol 100 MG Atenolol 100 MG No QD Atenolol 100 MG Trelegy Ellipta 100-62.5-25 MCG/INH Trelegy Ellipta 100-62.5-25 MCG/INH No 1{puff} QD Trelegy Ellipta 100-62.5-2 5 MCG/INH Atenolol 100 MG Atenolol 100 MG No Atenolol 100 MG Venlafaxine HCl ER 75 MG Venlafaxine HCl ER 75 MG No 1{capsu le_with _food} QD Venlafaxin e HCl ER 75 MG HYDROcodone -Acetaminop hen 5-325 MG HYDROcodone -Acetaminop hen 5-325 MG No 1{table t_as_ne eded} QID HYDROcodon e-Acetamin ophen 5-325 MG Venlafaxine HCl ER 150 MG Venlafaxine HCl ER 150 MG No Venlafaxin e HCl ER 150 MG Venlafaxine HCl ER 150 MG Venlafaxine HCl ER 150 MG No QD Venlafaxin e HCl ER 150 MG Linzess 145 mcg Linzess 145 mcg No 1{capsu le} QD Linzess 145 mcg traZODone HCl 100 MG traZODone HCl 100 MG No traZODone HCl 100 MG Aspirin Low Dose 81 MG Aspirin Low Dose 81 MG No Aspirin Low Dose 81 MG Zofran 4 MG Zofran 4 MG No 1{table t_as_ne eded} QD Zofran 4 MG HYDROcodone -Acetaminop hen 5-325 MG HYDROcodone -Acetaminop hen 5-325 MG No 1{table t} QD HYDROcodon e-Acetamin ophen 5-325 MG Gabapentin 100 MG Gabapentin 100 MG No Gabapentin 100 MG Furosemide 20 MG Furosemide 20 MG No 1{table t} QD Furosemide 20 MG Aspirin 81 MG Aspirin 81 MG No Aspirin 81 MG Simvastatin 40 MG Simvastatin 40 MG No Simvastati n 40 MG Synthroid 25 MCG Synthroid 25 MCG No QD Synthroid 25 MCG Rosuvastati n Calcium 20 MG Rosuvastati n Calcium 20 MG No Rosuvastat in Calcium 20 MG ProAir HFA 108 (90 Base) MCG/ACT ProAir HFA 108 (90 Base) MCG/ACT No 2{puffs _as_nee ded} QID ProAir HFA 108 (90 Base) MCG/ACT Clopidogrel Bisulfate 75 MG Clopidogrel Bisulfate 75 MG No 1{table t} QD Clopidogre l Bisulfate 75 MG Simvastatin 40 MG Simvastatin 40 MG No 1{table t_in_th e_eveni ng} QD Simvastati n 40 MG Vitamin D3 1.25 MG (71429 UT) Vitamin D3 1.25 MG (56554 UT) No Vitamin D3 1.25 MG (02589 UT) Aspirin 81 MG Aspirin 81 MG No Aspirin 81 MG Spironolact one 25 MG Spironolact one 25 MG No 1{table t} QD Spironolac tone 25 MG NexIUM 40 MG NexIUM 40 MG No NexIUM 40 MG Levothyroxi ne Sodium 25 MCG Levothyroxi ne Sodium 25 MCG No Levothyrox ine Sodium 25 MCG Atenolol 100 MG Atenolol 100 MG No QD Atenolol 100 MG Trelegy Ellipta 100-62.5-25 MCG/INH Trelegy Ellipta 100-62.5-25 MCG/INH No 1{puff} QD Trelegy Ellipta 100-62.5-2 5 MCG/INH Atenolol 100 MG Atenolol 100 MG No Atenolol 100 MG Venlafaxine HCl ER 75 MG Venlafaxine HCl ER 75 MG No 1{capsu le_with _food} QD Venlafaxin e HCl ER 75 MG HYDROcodone -Acetaminop hen 5-325 MG HYDROcodone -Acetaminop hen 5-325 MG No 1{table t_as_ne eded} QID HYDROcodon e-Acetamin ophen 5-325 MG Venlafaxine HCl ER 150 MG Venlafaxine HCl ER 150 MG No Venlafaxin e HCl ER 150 MG Venlafaxine HCl ER 150 MG Venlafaxine HCl ER 150 MG No QD Venlafaxin e HCl ER 150 MG Linzess 145 mcg Linzess 145 mcg No 1{capsu le} QD Linzess 145 mcg traZODone HCl 100 MG traZODone HCl 100 MG No traZODone HCl 100 MG Aspirin Low Dose 81 MG Aspirin Low Dose 81 MG No Aspirin Low Dose 81 MG Zofran 4 MG Zofran 4 MG No 1{table t_as_ne eded} QD Zofran 4 MG HYDROcodone -Acetaminop hen 5-325 MG HYDROcodone -Acetaminop hen 5-325 MG No 1{table t} QD HYDROcodon e-Acetamin ophen 5-325 MG Gabapentin 100 MG Gabapentin 100 MG No Gabapentin 100 MG Furosemide 20 MG Furosemide 20 MG No 1{table t} QD Furosemide 20 MG Aspirin 81 MG Aspirin 81 MG No Aspirin 81 MG Simvastatin 40 MG Simvastatin 40 MG No Simvastati n 40 MG Synthroid 25 MCG Synthroid 25 MCG No QD Synthroid 25 MCG Rosuvastati n Calcium 20 MG Rosuvastati n Calcium 20 MG No Rosuvastat in Calcium 20 MG ProAir HFA 108 (90 Base) MCG/ACT ProAir HFA 108 (90 Base) MCG/ACT No 2{puffs _as_nee ded} QID ProAir HFA 108 (90 Base) MCG/ACT Clopidogrel Bisulfate 75 MG Clopidogrel Bisulfate 75 MG No 1{table t} QD Clopidogre l Bisulfate 75 MG HYDROcodone -Acetaminop hen 5-325 MG HYDROcodone -Acetaminop hen 5-325 MG No 1{table t} QD HYDROcodon e-Acetamin ophen 5-325 MG Synthroid 25 MCG Synthroid 25 MCG No QD Synthroid 25 MCG Aspirin 81 MG Aspirin 81 MG No Aspirin 81 MG Simvastatin 40 MG Simvastatin 40 MG No 1{table t_in_th e_eveni ng} QD Simvastati n 40 MG Venlafaxine HCl ER 150 MG Venlafaxine HCl ER 150 MG No Venlafaxin e HCl ER 150 MG Trelegy Ellipta 100-62.5-25 MCG/INH Trelegy Ellipta 100-62.5-25 MCG/INH No 1{puff} QD Trelegy Ellipta 100-62.5-2 5 MCG/INH Furosemide 20 MG Furosemide 20 MG No 1{table t} QD Furosemide 20 MG Clopidogrel Bisulfate 75 MG Clopidogrel Bisulfate 75 MG No 1{table t} QD Clopidogre l Bisulfate 75 MG Zofran 4 MG Zofran 4 MG No 1{table t_as_ne eded} QD Zofran 4 MG Linzess 145 mcg Linzess 145 mcg No 1{capsu le} QD Linzess 145 mcg Venlafaxine HCl ER 150 MG Venlafaxine HCl ER 150 MG No QD Venlafaxin e HCl ER 150 MG Orphenadrin e Citrate ER 100 MG Orphenadrin e Citrate ER 100 MG No 1{table t} BID Orphenadri ne Citrate ER 100 MG Diclofenac Sodium 75 MG Diclofenac Sodium 75 MG No 1{table t_as_ne eded} BID Diclofenac Sodium 75 MG Furosemide 40 MG Furosemide 40 MG No Furosemide 40 MG Vitamin D3 1.25 MG (10434 UT) Vitamin D3 1.25 MG (71394 UT) No Vitamin D3 1.25 MG (27811 UT) Atenolol 100 MG Atenolol 100 MG No QD Atenolol 100 MG ProAir HFA 108 (90 Base) MCG/ACT ProAir HFA 108 (90 Base) MCG/ACT No 2{puffs _as_nee ded} QID ProAir HFA 108 (90 Base) MCG/ACT NexIUM 40 MG NexIUM 40 MG No NexIUM 40 MG Spironolact one 25 MG Spironolact one 25 MG No 1{table t} QD Spironolac tone 25 MG Clopidogrel Bisulfate 75 MG Clopidogrel Bisulfate 75 MG No 1{table t} QD Clopidogre l Bisulfate 75 MG Furosemide 40 MG Furosemide 40 MG No Furosemide 40 MG Furosemide 20 MG Furosemide 20 MG No 1{table t} QD Furosemide 20 MG Aspirin 81 MG Aspirin 81 MG No Aspirin 81 MG Zofran 4 MG Zofran 4 MG No 1{table t_as_ne eded} QD Zofran 4 MG NexIUM 40 MG NexIUM 40 MG No NexIUM 40 MG Spironolact one 25 MG Spironolact one 25 MG No 1{table t} QD Spironolac tone 25 MG ProAir HFA 108 (90 Base) MCG/ACT ProAir HFA 108 (90 Base) MCG/ACT No 2{puffs _as_nee ded} QID ProAir HFA 108 (90 Base) MCG/ACT HYDROcodone -Acetaminop hen 5-325 MG HYDROcodone -Acetaminop hen 5-325 MG No 1{table t} QD HYDROcodon e-Acetamin ophen 5-325 MG Orphenadrin e Citrate ER 100 MG Orphenadrin e Citrate ER 100 MG No 1{table t} BID Orphenadri ne Citrate ER 100 MG Simvastatin 40 MG Simvastatin 40 MG No Simvastati n 40 MG Synthroid 25 MCG Synthroid 25 MCG No QD Synthroid 25 MCG Trelegy Ellipta 100-62.5-25 MCG/INH Trelegy Ellipta 100-62.5-25 MCG/INH No 1{puff} QD Trelegy Ellipta 100-62.5-2 5 MCG/INH Atenolol 100 MG Atenolol 100 MG No QD Atenolol 100 MG Venlafaxine HCl ER 150 MG Venlafaxine HCl ER 150 MG No QD Venlafaxin e HCl ER 150 MG Vitamin D3 1.25 MG (99248 UT) Vitamin D3 1.25 MG (21104 UT) No Vitamin D3 1.25 MG (23445 UT) Diclofenac Sodium 75 MG Diclofenac Sodium 75 MG No 1{table t_as_ne eded} BID Diclofenac Sodium 75 MG Linzess 145 mcg Linzess 145 mcg No 1{capsu le} QD Linzess 145 mcg Venlafaxine HCl ER 150 MG Venlafaxine HCl ER 150 MG No Venlafaxin e HCl ER 150 MG Linzess 145 mcg Linzess 145 mcg No 1{capsu le} QD Linzess 145 mcg Aspirin Low Dose 81 MG Aspirin Low Dose 81 MG No Aspirin Low Dose 81 MG Levothyroxi ne Sodium 50 MCG Levothyroxi ne Sodium 50 MCG No Levothyrox ine Sodium 50 MCG ProAir HFA 108 (90 Base) MCG/ACT ProAir HFA 108 (90 Base) MCG/ACT No 2{puffs _as_nee ded} QID ProAir HFA 108 (90 Base) MCG/ACT Clopidogrel Bisulfate 75 MG Clopidogrel Bisulfate 75 MG No 1{table t} QD Clopidogre l Bisulfate 75 MG Zofran 4 MG Zofran 4 MG No 1{table t_as_ne eded} TID Zofran 4 MG Furosemide 40 MG Furosemide 40 MG No Furosemide 40 MG Furosemide 20 MG Furosemide 20 MG No 1{table t} QD Furosemide 20 MG Aspirin 81 MG Aspirin 81 MG No Aspirin 81 MG Zofran 4 MG Zofran 4 MG No 1{table t_as_ne eded} QD Zofran 4 MG NexIUM 40 MG NexIUM 40 MG No NexIUM 40 MG Spironolact one 25 MG Spironolact one 25 MG No 1{table t} QD Spironolac tone 25 MG ProAir HFA 108 (90 Base) MCG/ACT ProAir HFA 108 (90 Base) MCG/ACT No 2{puffs _as_nee ded} QID ProAir HFA 108 (90 Base) MCG/ACT HYDROcodone -Acetaminop hen 5-325 MG HYDROcodone -Acetaminop hen 5-325 MG No 1{table t} QD HYDROcodon e-Acetamin ophen 5-325 MG Orphenadrin e Citrate ER 100 MG Orphenadrin e Citrate ER 100 MG No 1{table t} BID Orphenadri ne Citrate ER 100 MG Simvastatin 40 MG Simvastatin 40 MG No Simvastati n 40 MG Furosemide 20 MG Furosemide 20 MG No 1{table t} QD Furosemide 20 MG Synthroid 25 MCG Synthroid 25 MCG No QD Synthroid 25 MCG Trelegy Ellipta 100-62.5-25 MCG/INH Trelegy Ellipta 100-62.5-25 MCG/INH No 1{puff} QD Trelegy Ellipta 100-62.5-2 5 MCG/INH Atenolol 100 MG Atenolol 100 MG No QD Atenolol 100 MG Venlafaxine HCl ER 150 MG Venlafaxine HCl ER 150 MG No QD Venlafaxin e HCl ER 150 MG Vitamin D3 1.25 MG (23575 UT) Vitamin D3 1.25 MG (84966 UT) No Vitamin D3 1.25 MG (20187 UT) Diclofenac Sodium 75 MG Diclofenac Sodium 75 MG No 1{table t_as_ne eded} BID Diclofenac Sodium 75 MG Linzess 145 mcg Linzess 145 mcg No 1{capsu le} QD Linzess 145 mcg Venlafaxine HCl ER 150 MG Venlafaxine HCl ER 150 MG No Venlafaxin e HCl ER 150 MG Aspirin 81 MG Aspirin 81 MG No Aspirin 81 MG Simvastatin 40 MG Simvastatin 40 MG No 1{table t_in_th e_eveni ng} QD Simvastati n 40 MG Synthroid 25 MCG Synthroid 25 MCG No QD Synthroid 25 MCG Hydrocodone -Acetaminop hen 5-325 MG Hydrocodone -Acetaminop hen 5-325 MG No 1{table t} QD Hydrocodon e-Acetamin ophen 5-325 MG Trelegy Ellipta 100-62.5-25 MCG/INH Trelegy Ellipta 100-62.5-25 MCG/INH No 1{puff} QD Trelegy Ellipta 100-62.5-2 5 MCG/INH Furosemide 40 MG Furosemide 40 MG No Furosemide 40 MG Trelegy Ellipta 100-62.5-25 MCG/INH Trelegy Ellipta 100-62.5-25 MCG/INH No 1{puff} QD Trelegy Ellipta 100-62.5-2 5 MCG/INH Aspirin 81 MG Aspirin 81 MG No Aspirin 81 MG Orphenadrin e Citrate ER 100 MG Orphenadrin e Citrate ER 100 MG No 1{table t} BID Orphenadri ne Citrate ER 100 MG Furosemide 20 MG Furosemide 20 MG No 1{table t} QD Furosemide 20 MG Clopidogrel Bisulfate 75 MG Clopidogrel Bisulfate 75 MG No 1{table t} QD Clopidogre l Bisulfate 75 MG Nexium 40 MG Nexium 40 MG No Nexium 40 MG Simvastatin 40 MG Simvastatin 40 MG No Simvastati n 40 MG Diclofenac Sodium 75 MG Diclofenac Sodium 75 MG No 1{table t_as_ne eded} BID Diclofenac Sodium 75 MG Linzess 145 mcg Linzess 145 mcg No 1{capsu le} QD Linzess 145 mcg Zofran 4 MG Zofran 4 MG No 1{table t_as_ne eded} QD Zofran 4 MG Spironolact one 25 MG Spironolact one 25 MG No 1{table t} QD Spironolac tone 25 MG HYDROcodone -Acetaminop hen 5-325 MG HYDROcodone -Acetaminop hen 5-325 MG No 1{table t} QD HYDROcodon e-Acetamin ophen 5-325 MG Vitamin D3 1.25 MG (77604 UT) Vitamin D3 1.25 MG (35093 UT) No Vitamin D3 1.25 MG (22477 UT) NexIUM 40 MG NexIUM 40 MG No NexIUM 40 MG Atenolol 100 MG Atenolol 100 MG No QD Atenolol 100 MG Aspirin 81 MG Aspirin 81 MG No Aspirin 81 MG Synthroid 25 MCG Synthroid 25 MCG No QD Synthroid 25 MCG ProAir HFA 108 (90 Base) MCG/ACT ProAir HFA 108 (90 Base) MCG/ACT No 2{puffs _as_nee ded} QID ProAir HFA 108 (90 Base) MCG/ACT Venlafaxine HCl ER 150 MG Venlafaxine HCl ER 150 MG No Venlafaxin e HCl ER 150 MG Venlafaxine HCl ER 150 MG Venlafaxine HCl ER 150 MG No QD Venlafaxin e HCl ER 150 MG Clopidogrel Bisulfate 75 MG Clopidogrel Bisulfate 75 MG No 1{table t} QD Clopidogre l Bisulfate 75 MG Gabapentin 100 MG Gabapentin 100 MG No Gabapentin 100 MG Hydrocodone -Acetaminop hen 5-325 MG Hydrocodone -Acetaminop hen 5-325 MG No 1{table t_as_ne eded} QID Hydrocodon e-Acetamin ophen 5-325 MG Vitamin D3 50826 UNIT Vitamin D3 31602 UNIT No 1{capsu le} Vitamin D3 27813 UNIT Atenolol 100 MG Atenolol 100 MG No Atenolol 100 MG Simvastatin 40 MG Simvastatin 40 MG No 1{table t_in_th e_eveni ng} QD Simvastati n 40 MG ProAir HFA 108 (90 Base) MCG/ACT ProAir HFA 108 (90 Base) MCG/ACT No 2{puffs _as_nee ded} QID ProAir HFA 108 (90 Base) MCG/ACT Ibuprofen 600 MG Ibuprofen 600 MG No TID Ibuprofen 600 MG Furosemide 20 MG Furosemide 20 MG No 1{table t} QD Furosemide 20 MG Atenolol 100 MG Atenolol 100 MG No QD Atenolol 100 MG Simvastatin 40 MG Simvastatin 40 MG No Simvastati n 40 MG Venlafaxine HCl ER 150 MG Venlafaxine HCl ER 150 MG No QD Venlafaxin e HCl ER 150 MG NexIUM 40 MG NexIUM 40 MG No NexIUM 40 MG Tamsulosin HCl 0.4 MG Tamsulosin HCl 0.4 MG No 1{capsu le} QD Tamsulosin HCl 0.4 MG Atenolol 100 MG Atenolol 100 MG No QD Atenolol 100 MG Aspirin 81 MG Aspirin 81 MG No Aspirin 81 MG Diclofenac Sodium 75 MG Diclofenac Sodium 75 MG No 1{table t_as_ne eded} BID Diclofenac Sodium 75 MG Linzess 145 mcg Linzess 145 mcg No 1{capsu le} QD Linzess 145 mcg Sulfamethox azole-Trime thoprim 800-160 MG Sulfamethox azole-Trime thoprim 800-160 MG No 1{table t} BID Sulfametho xazole-Tri methoprim 800-160 MG Zofran 4 MG Zofran 4 MG No 1{table t_as_ne eded} QD Zofran 4 MG Spironolact one 25 MG Spironolact one 25 MG No 1{table t} QD Spironolac tone 25 MG Trelegy Ellipta 100-62.5-25 MCG/INH Trelegy Ellipta 100-62.5-25 MCG/INH No 1{puff} QD Trelegy Ellipta 100-62.5-2 5 MCG/INH HYDROcodone -Acetaminop hen 5-325 MG HYDROcodone -Acetaminop hen 5-325 MG No 1{table t} QD HYDROcodon e-Acetamin ophen 5-325 MG Vitamin D3 1.25 MG (72389 UT) Vitamin D3 1.25 MG (49590 UT) No Vitamin D3 1.25 MG (88336 UT) Clopidogrel Bisulfate 75 MG Clopidogrel Bisulfate 75 MG No 1{table t} QD Clopidogre l Bisulfate 75 MG Synthroid 25 MCG Synthroid 25 MCG No QD Synthroid 25 MCG Furosemide 40 MG Furosemide 40 MG No Furosemide 40 MG Levothyroxi ne Sodium 25 MCG Levothyroxi ne Sodium 25 MCG No Levothyrox ine Sodium 25 MCG Orphenadrin e Citrate ER 100 MG Orphenadrin e Citrate ER 100 MG No 1{table t} BID Orphenadri ne Citrate ER 100 MG Spironolact one 25 MG Spironolact one 25 MG No 1{table t} QD Spironolac tone 25 MG Alfuzosin HCl ER 10 MG Alfuzosin HCl ER 10 MG No Alfuzosin HCl ER 10 MG Venlafaxine HCl ER 150 MG Venlafaxine HCl ER 150 MG No Venlafaxin e HCl ER 150 MG Ondansetron HCl 4 MG Ondansetron HCl 4 MG No 1{table t_as_ne eded} Ondansetro n HCl 4 MG Atenolol 100 MG Atenolol 100 MG No QD Atenolol 100 MG Ondansetron HCl 4 MG Ondansetron HCl 4 MG No 1{table t_as_ne eded} Ondansetro n HCl 4 MG Orphenadrin e Citrate ER 100 MG Orphenadrin e Citrate ER 100 MG No 1{table t} BID Orphenadri ne Citrate ER 100 MG Simvastatin 40 MG Simvastatin 40 MG No 1{table t_in_th e_eveni ng} QD Simvastati n 40 MG Ibuprofen 600 MG Ibuprofen 600 MG No TID Ibuprofen 600 MG Furosemide 40 MG Furosemide 40 MG No Furosemide 40 MG Tamsulosin HCl 0.4 MG Tamsulosin HCl 0.4 MG No 1{capsu le} QD Tamsulosin HCl 0.4 MG Levothyroxi ne Sodium 25 MCG Levothyroxi ne Sodium 25 MCG No QD Levothyrox ine Sodium 25 MCG Venlafaxine HCl ER 150 MG Venlafaxine HCl ER 150 MG No Venlafaxin e HCl ER 150 MG Simvastatin 40 MG Simvastatin 40 MG No 1{table t_in e_eveni ng} QD Simvastati n 40 MG Atenolol 100 MG Atenolol 100 MG No 1{table t} QD Atenolol 100 MG Spironolact one 25 MG Spironolact one 25 MG No 1{table t} QD Spironolac tone 25 MG HYDROcodone -Acetaminop hen 5-325 MG HYDROcodone -Acetaminop hen 5-325 MG No 1{table t} QD HYDROcodon e-Acetamin ophen 5-325 MG Trelegy Ellipta 100-62.5-25 MCG/INH Trelegy Ellipta 100-62.5-25 MCG/INH No 1{puff} QD Trelegy Ellipta 100-62.5-2 5 MCG/INH Vitamin D3 1.25 MG (71145 UT) Vitamin D3 1.25 MG (45811 UT) No Vitamin D3 1.25 MG (86764 UT) Sulfamethox azole-Trime thoprim 800-160 MG Sulfamethox azole-Trime thoprim 800-160 MG No 1{table t} BID Sulfametho xazole-Tri methoprim 800-160 MG Zofran 4 MG Zofran 4 MG No 1{table t_as_ne eded} QD Zofran 4 MG Furosemide 20 MG Furosemide 20 MG No 1{table t} QD Furosemide 20 MG Alfuzosin HCl ER 10 MG Alfuzosin HCl ER 10 MG No Alfuzosin HCl ER 10 MG Diclofenac Sodium 75 MG Diclofenac Sodium 75 MG No 1{table t_as_ne eded} BID Diclofenac Sodium 75 MG Linzess 145 mcg Linzess 145 mcg No 1{capsu le} QD Linzess 145 mcg Clopidogrel Bisulfate 75 MG Clopidogrel Bisulfate 75 MG No 1{table t} QD Clopidogre l Bisulfate 75 MG Synthroid 25 MCG Synthroid 25 MCG No QD Synthroid 25 MCG ProAir HFA 108 (90 Base) MCG/ACT ProAir HFA 108 (90 Base) MCG/ACT No 2{puffs _as_nee ded} QID ProAir HFA 108 (90 Base) MCG/ACT Aspirin 81 MG Aspirin 81 MG No Aspirin 81 MG NexIUM 40 MG NexIUM 40 MG No NexIUM 40 MG Atenolol 100 MG Atenolol 100 MG No QD Atenolol 100 MG Ondansetron HCl 4 MG Ondansetron HCl 4 MG No 1{table t_as_ne eded} Ondansetro n HCl 4 MG Orphenadrin e Citrate ER 100 MG Orphenadrin e Citrate ER 100 MG No 1{table t} BID Orphenadri ne Citrate ER 100 MG Simvastatin 40 MG Simvastatin 40 MG No 1{table t_in_ e_eveni ng} QD Simvastati n 40 MG Ibuprofen 600 MG Ibuprofen 600 MG No TID Ibuprofen 600 MG Furosemide 40 MG Furosemide 40 MG No Furosemide 40 MG Tamsulosin HCl 0.4 MG Tamsulosin HCl 0.4 MG No 1{capsu le} QD Tamsulosin HCl 0.4 MG Levothyroxi ne Sodium 25 MCG Levothyroxi ne Sodium 25 MCG No QD Levothyrox ine Sodium 25 MCG Venlafaxine HCl ER 150 MG Venlafaxine HCl ER 150 MG No Venlafaxin e HCl ER 150 MG Simvastatin 40 MG Simvastatin 40 MG No 1{table t_in_th e_eveni ng} QD Simvastati n 40 MG Atenolol 100 MG Atenolol 100 MG No 1{table t} QD Atenolol 100 MG Spironolact one 25 MG Spironolact one 25 MG No 1{table t} QD Spironolac tone 25 MG HYDROcodone -Acetaminop hen 5-325 MG HYDROcodone -Acetaminop hen 5-325 MG No 1{table t} QD HYDROcodon e-Acetamin ophen 5-325 MG Trelegy Ellipta 100-62.5-25 MCG/INH Trelegy Ellipta 100-62.5-25 MCG/INH No 1{puff} QD Trelegy Ellipta 100-62.5-2 5 MCG/INH Vitamin D3 1.25 MG (04818 UT) Vitamin D3 1.25 MG (90183 UT) No Vitamin D3 1.25 MG (90626 UT) Sulfamethox azole-Trime thoprim 800-160 MG Sulfamethox azole-Trime thoprim 800-160 MG No 1{table t} BID Sulfametho xazole-Tri methoprim 800-160 MG Zofran 4 MG Zofran 4 MG No 1{table t_as_ne eded} QD Zofran 4 MG Clopidogrel Bisulfate 75 MG Clopidogrel Bisulfate 75 MG No 1{table t} QD Clopidogre l Bisulfate 75 MG Furosemide 20 MG Furosemide 20 MG No 1{table t} QD Furosemide 20 MG Alfuzosin HCl ER 10 MG Alfuzosin HCl ER 10 MG No Alfuzosin HCl ER 10 MG Diclofenac Sodium 75 MG Diclofenac Sodium 75 MG No 1{table t_as_ne eded} BID Diclofenac Sodium 75 MG Linzess 145 mcg Linzess 145 mcg No 1{capsu le} QD Linzess 145 mcg Clopidogrel Bisulfate 75 MG Clopidogrel Bisulfate 75 MG No 1{table t} QD Clopidogre l Bisulfate 75 MG Synthroid 25 MCG Synthroid 25 MCG No QD Synthroid 25 MCG ProAir HFA 108 (90 Base) MCG/ACT ProAir HFA 108 (90 Base) MCG/ACT No 2{puffs _as_nee ded} QID ProAir HFA 108 (90 Base) MCG/ACT Aspirin 81 MG Aspirin 81 MG No Aspirin 81 MG NexIUM 40 MG NexIUM 40 MG No NexIUM 40 MG Spironolact one 25 MG Spironolact one 25 MG No 1{table t} QD Spironolac tone 25 MG ProAir HFA 108 (90 Base) MCG/ACT ProAir HFA 108 (90 Base) MCG/ACT No 2{puffs _as_nee ded} QID ProAir HFA 108 (90 Base) MCG/ACT Vitamin D3 35845 UNIT Vitamin D3 42143 UNIT No 1{capsu le} Vitamin D3 73010 UNIT Zofran 4 MG Zofran 4 MG No 1{table t_as_ne eded} TID Zofran 4 MG Hydrocodone -Acetaminop hen 5-325 MG Hydrocodone -Acetaminop hen 5-325 MG No 1{table t} QD Hydrocodon e-Acetamin ophen 5-325 MG Atenolol 100 MG Atenolol 100 MG No QD Atenolol 100 MG Ondansetron HCl 4 MG Ondansetron HCl 4 MG No 1{table t_as_ne eded} Ondansetro n HCl 4 MG Levothyroxi ne Sodium 50 MCG Levothyroxi ne Sodium 50 MCG No Levothyrox ine Sodium 50 MCG Orphenadrin e Citrate ER 100 MG Orphenadrin e Citrate ER 100 MG No 1{table t} BID Orphenadri ne Citrate ER 100 MG Simvastatin 40 MG Simvastatin 40 MG No 1{table t_in e_eveni ng} QD Simvastati n 40 MG Ibuprofen 600 MG Ibuprofen 600 MG No TID Ibuprofen 600 MG Furosemide 40 MG Furosemide 40 MG No Furosemide 40 MG Tamsulosin HCl 0.4 MG Tamsulosin HCl 0.4 MG No 1{capsu le} QD Tamsulosin HCl 0.4 MG Levothyroxi ne Sodium 25 MCG Levothyroxi ne Sodium 25 MCG No QD Levothyrox ine Sodium 25 MCG Venlafaxine HCl ER 150 MG Venlafaxine HCl ER 150 MG No Venlafaxin e HCl ER 150 MG Simvastatin 40 MG Simvastatin 40 MG No 1{table t_in e_eveni ng} QD Simvastati n 40 MG Atenolol 100 MG Atenolol 100 MG No 1{table t} QD Atenolol 100 MG Linzess 145 mcg Linzess 145 mcg No 1{capsu le} QD Linzess 145 mcg Spironolact one 25 MG Spironolact one 25 MG No 1{table t} QD Spironolac tone 25 MG HYDROcodone -Acetaminop hen 5-325 MG HYDROcodone -Acetaminop hen 5-325 MG No 1{table t} QD HYDROcodon e-Acetamin ophen 5-325 MG Trelegy Ellipta 100-62.5-25 MCG/INH Trelegy Ellipta 100-62.5-25 MCG/INH No 1{puff} QD Trelegy Ellipta 100-62.5-2 5 MCG/INH Vitamin D3 1.25 MG (10260 UT) Vitamin D3 1.25 MG (34014 UT) No Vitamin D3 1.25 MG (40912 UT) Sulfamethox azole-Trime thoprim 800-160 MG Sulfamethox azole-Trime thoprim 800-160 MG No 1{table t} BID Sulfametho xazole-Tri methoprim 800-160 MG Zofran 4 MG Zofran 4 MG No 1{table t_as_ne eded} QD Zofran 4 MG Furosemide 20 MG Furosemide 20 MG No 1{table t} QD Furosemide 20 MG Alfuzosin HCl ER 10 MG Alfuzosin HCl ER 10 MG No Alfuzosin HCl ER 10 MG Aspirin 81 MG Aspirin 81 MG No Aspirin 81 MG Diclofenac Sodium 75 MG Diclofenac Sodium 75 MG No 1{table t_as_ne eded} BID Diclofenac Sodium 75 MG Linzess 145 mcg Linzess 145 mcg No 1{capsu le} QD Linzess 145 mcg Clopidogrel Bisulfate 75 MG Clopidogrel Bisulfate 75 MG No 1{table t} QD Clopidogre l Bisulfate 75 MG Synthroid 25 MCG Synthroid 25 MCG No QD Synthroid 25 MCG ProAir HFA 108 (90 Base) MCG/ACT ProAir HFA 108 (90 Base) MCG/ACT No 2{puffs _as_nee ded} QID ProAir HFA 108 (90 Base) MCG/ACT Aspirin 81 MG Aspirin 81 MG No Aspirin 81 MG NexIUM 40 MG NexIUM 40 MG No NexIUM 40 MG Furosemide 20 MG Furosemide 20 MG No 1{table t} QD Furosemide 20 MG Venlafaxine HCl ER 150 MG Venlafaxine HCl ER 150 MG No QD Venlafaxin e HCl ER 150 MG Simvastatin 40 MG Simvastatin 40 MG No 1{table t_in_ e_eveni ng} QD Simvastati n 40 MG Synthroid 25 MCG Synthroid 25 MCG No QD Synthroid 25 MCG Gabapentin 100 MG Gabapentin 100 MG No Gabapentin 100 MG Hydrocodone -Acetaminop hen 5-325 MG Hydrocodone -Acetaminop hen 5-325 MG No 1{table t_as_ne eded} QID Hydrocodon e-Acetamin ophen 5-325 MG Atenolol 100 MG Atenolol 100 MG No QD Atenolol 100 MG Ondansetron HCl 4 MG Ondansetron HCl 4 MG No 1{table t_as_ne eded} Ondansetro n HCl 4 MG Orphenadrin e Citrate ER 100 MG Orphenadrin e Citrate ER 100 MG No 1{table t} BID Orphenadri ne Citrate ER 100 MG Simvastatin 40 MG Simvastatin 40 MG No 1{table t_in e_eveni ng} QD Simvastati n 40 MG Ibuprofen 600 MG Ibuprofen 600 MG No TID Ibuprofen 600 MG Furosemide 40 MG Furosemide 40 MG No Furosemide 40 MG Tamsulosin HCl 0.4 MG Tamsulosin HCl 0.4 MG No 1{capsu le} QD Tamsulosin HCl 0.4 MG Nexium 40 MG Nexium 40 MG No Nexium 40 MG Levothyroxi ne Sodium 25 MCG Levothyroxi ne Sodium 25 MCG No QD Levothyrox ine Sodium 25 MCG Venlafaxine HCl ER 150 MG Venlafaxine HCl ER 150 MG No Venlafaxin e HCl ER 150 MG Simvastatin 40 MG Simvastatin 40 MG No 1{table t_in e_eveni ng} QD Simvastati n 40 MG Atenolol 100 MG Atenolol 100 MG No 1{table t} QD Atenolol 100 MG Spironolact one 25 MG Spironolact one 25 MG No 1{table t} QD Spironolac tone 25 MG HYDROcodone -Acetaminop hen 5-325 MG HYDROcodone -Acetaminop hen 5-325 MG No 1{table t} QD HYDROcodon e-Acetamin ophen 5-325 MG Trelegy Ellipta 100-62.5-25 MCG/INH Trelegy Ellipta 100-62.5-25 MCG/INH No 1{puff} QD Trelegy Ellipta 100-62.5-2 5 MCG/INH Vitamin D3 1.25 MG (65767 UT) Vitamin D3 1.25 MG (96262 UT) No Vitamin D3 1.25 MG (17047 UT) Sulfamethox azole-Trime thoprim 800-160 MG Sulfamethox azole-Trime thoprim 800-160 MG No 1{table t} BID Sulfametho xazole-Tri methoprim 800-160 MG Zofran 4 MG Zofran 4 MG No 1{table t_as_ne eded} QD Zofran 4 MG Aspirin Low Dose 81 MG Aspirin Low Dose 81 MG No Aspirin Low Dose 81 MG Furosemide 20 MG Furosemide 20 MG No 1{table t} QD Furosemide 20 MG Alfuzosin HCl ER 10 MG Alfuzosin HCl ER 10 MG No Alfuzosin HCl ER 10 MG Diclofenac Sodium 75 MG Diclofenac Sodium 75 MG No 1{table t_as_ne eded} BID Diclofenac Sodium 75 MG Linzess 145 mcg Linzess 145 mcg No 1{capsu le} QD Linzess 145 mcg Clopidogrel Bisulfate 75 MG Clopidogrel Bisulfate 75 MG No 1{table t} QD Clopidogre l Bisulfate 75 MG Synthroid 25 MCG Synthroid 25 MCG No QD Synthroid 25 MCG ProAir HFA 108 (90 Base) MCG/ACT ProAir HFA 108 (90 Base) MCG/ACT No 2{puffs _as_nee ded} QID ProAir HFA 108 (90 Base) MCG/ACT Aspirin 81 MG Aspirin 81 MG No Aspirin 81 MG Atenolol 100 MG Atenolol 100 MG No QD Atenolol 100 MG NexIUM 40 MG NexIUM 40 MG No NexIUM 40 MG Aspirin 81 MG Aspirin 81 MG No Aspirin 81 MG Trelegy Ellipta 100-62.5-25 MCG/INH Trelegy Ellipta 100-62.5-25 MCG/INH No 1{puff} QD Trelegy Ellipta 100-62.5-2 5 MCG/INH Atenolol 100 MG Atenolol 100 MG No QD Atenolol 100 MG Ondansetron HCl 4 MG Ondansetron HCl 4 MG No 1{table t_as_ne eded} Ondansetro n HCl 4 MG Orphenadrin e Citrate ER 100 MG Orphenadrin e Citrate ER 100 MG No 1{table t} BID Orphenadri ne Citrate ER 100 MG Simvastatin 40 MG Simvastatin 40 MG No 1{table t_in e_eveni ng} QD Simvastati n 40 MG Ibuprofen 600 MG Ibuprofen 600 MG No TID Ibuprofen 600 MG Furosemide 40 MG Furosemide 40 MG No Furosemide 40 MG Tamsulosin HCl 0.4 MG Tamsulosin HCl 0.4 MG No 1{capsu le} QD Tamsulosin HCl 0.4 MG Levothyroxi ne Sodium 25 MCG Levothyroxi ne Sodium 25 MCG No QD Levothyrox ine Sodium 25 MCG Venlafaxine HCl ER 150 MG Venlafaxine HCl ER 150 MG No Venlafaxin e HCl ER 150 MG Simvastatin 40 MG Simvastatin 40 MG No 1{table t_in e_eveni ng} QD Simvastati n 40 MG Atenolol 100 MG Atenolol 100 MG No 1{table t} QD Atenolol 100 MG Spironolact one 25 MG Spironolact one 25 MG No 1{table t} QD Spironolac tone 25 MG HYDROcodone -Acetaminop hen 5-325 MG HYDROcodone -Acetaminop hen 5-325 MG No 1{table t} QD HYDROcodon e-Acetamin ophen 5-325 MG Trelegy Ellipta 100-62.5-25 MCG/INH Trelegy Ellipta 100-62.5-25 MCG/INH No 1{puff} QD Trelegy Ellipta 100-62.5-2 5 MCG/INH Vitamin D3 1.25 MG (89800 UT) Vitamin D3 1.25 MG (60025 UT) No Vitamin D3 1.25 MG (25514 UT) Sulfamethox azole-Trime thoprim 800-160 MG Sulfamethox azole-Trime thoprim 800-160 MG No 1{table t} BID Sulfametho xazole-Tri methoprim 800-160 MG Zofran 4 MG Zofran 4 MG No 1{table t_as_ne eded} QD Zofran 4 MG Furosemide 20 MG Furosemide 20 MG No 1{table t} QD Furosemide 20 MG Alfuzosin HCl ER 10 MG Alfuzosin HCl ER 10 MG No Alfuzosin HCl ER 10 MG Diclofenac Sodium 75 MG Diclofenac Sodium 75 MG No 1{table t_as_ne eded} BID Diclofenac Sodium 75 MG Linzess 145 mcg Linzess 145 mcg No 1{capsu le} QD Linzess 145 mcg Clopidogrel Bisulfate 75 MG Clopidogrel Bisulfate 75 MG No 1{table t} QD Clopidogre l Bisulfate 75 MG Synthroid 25 MCG Synthroid 25 MCG No QD Synthroid 25 MCG ProAir HFA 108 (90 Base) MCG/ACT ProAir HFA 108 (90 Base) MCG/ACT No 2{puffs _as_nee ded} QID ProAir HFA 108 (90 Base) MCG/ACT Aspirin 81 MG Aspirin 81 MG No Aspirin 81 MG NexIUM 40 MG NexIUM 40 MG No NexIUM 40 MG Atenolol 100 MG Atenolol 100 MG No QD Atenolol 100 MG Ondansetron HCl 4 MG Ondansetron HCl 4 MG No 1{table t_as_ne eded} Ondansetro n HCl 4 MG Orphenadrin e Citrate ER 100 MG Orphenadrin e Citrate ER 100 MG No 1{table t} BID Orphenadri ne Citrate ER 100 MG Simvastatin 40 MG Simvastatin 40 MG No 1{table t_in e_eveni ng} QD Simvastati n 40 MG Ibuprofen 600 MG Ibuprofen 600 MG No TID Ibuprofen 600 MG Furosemide 40 MG Furosemide 40 MG No Furosemide 40 MG Tamsulosin HCl 0.4 MG Tamsulosin HCl 0.4 MG No 1{capsu le} QD Tamsulosin HCl 0.4 MG Levothyroxi ne Sodium 25 MCG Levothyroxi ne Sodium 25 MCG No QD Levothyrox ine Sodium 25 MCG Venlafaxine HCl ER 150 MG Venlafaxine HCl ER 150 MG No Venlafaxin e HCl ER 150 MG Simvastatin 40 MG Simvastatin 40 MG No 1{table t_in e_eveni ng} QD Simvastati n 40 MG Atenolol 100 MG Atenolol 100 MG No 1{table t} QD Atenolol 100 MG Spironolact one 25 MG Spironolact one 25 MG No 1{table t} QD Spironolac tone 25 MG HYDROcodone -Acetaminop hen 5-325 MG HYDROcodone -Acetaminop hen 5-325 MG No 1{table t} QD HYDROcodon e-Acetamin ophen 5-325 MG Trelegy Ellipta 100-62.5-25 MCG/INH Trelegy Ellipta 100-62.5-25 MCG/INH No 1{puff} QD Trelegy Ellipta 100-62.5-2 5 MCG/INH Vitamin D3 1.25 MG (46188 UT) Vitamin D3 1.25 MG (94135 UT) No Vitamin D3 1.25 MG (51227 UT) Sulfamethox azole-Trime thoprim 800-160 MG Sulfamethox azole-Trime thoprim 800-160 MG No 1{table t} BID Sulfametho xazole-Tri methoprim 800-160 MG Zofran 4 MG Zofran 4 MG No 1{table t_as_ne eded} QD Zofran 4 MG Furosemide 20 MG Furosemide 20 MG No 1{table t} QD Furosemide 20 MG Alfuzosin HCl ER 10 MG Alfuzosin HCl ER 10 MG No Alfuzosin HCl ER 10 MG Diclofenac Sodium 75 MG Diclofenac Sodium 75 MG No 1{table t_as_ne eded} BID Diclofenac Sodium 75 MG Linzess 145 mcg Linzess 145 mcg No 1{capsu le} QD Linzess 145 mcg Clopidogrel Bisulfate 75 MG Clopidogrel Bisulfate 75 MG No 1{table t} QD Clopidogre l Bisulfate 75 MG Synthroid 25 MCG Synthroid 25 MCG No QD Synthroid 25 MCG ProAir HFA 108 (90 Base) MCG/ACT ProAir HFA 108 (90 Base) MCG/ACT No 2{puffs _as_nee ded} QID ProAir HFA 108 (90 Base) MCG/ACT Aspirin 81 MG Aspirin 81 MG No Aspirin 81 MG NexIUM 40 MG NexIUM 40 MG No NexIUM 40 MG Atenolol 100 MG Atenolol 100 MG No QD Atenolol 100 MG Ondansetron HCl 4 MG Ondansetron HCl 4 MG No 1{table t_as_ne eded} Ondansetro n HCl 4 MG Orphenadrin e Citrate ER 100 MG Orphenadrin e Citrate ER 100 MG No 1{table t} BID Orphenadri ne Citrate ER 100 MG Simvastatin 40 MG Simvastatin 40 MG No 1{table t_in_ e_eveni ng} QD Simvastati n 40 MG Ibuprofen 600 MG Ibuprofen 600 MG No TID Ibuprofen 600 MG Furosemide 40 MG Furosemide 40 MG No Furosemide 40 MG Tamsulosin HCl 0.4 MG Tamsulosin HCl 0.4 MG No 1{capsu le} QD Tamsulosin HCl 0.4 MG Levothyroxi ne Sodium 25 MCG Levothyroxi ne Sodium 25 MCG No QD Levothyrox ine Sodium 25 MCG Venlafaxine HCl ER 150 MG Venlafaxine HCl ER 150 MG No Venlafaxin e HCl ER 150 MG Simvastatin 40 MG Simvastatin 40 MG No 1{table t_in_th e_eveni ng} QD Simvastati n 40 MG Atenolol 100 MG Atenolol 100 MG No 1{table t} QD Atenolol 100 MG Spironolact one 25 MG Spironolact one 25 MG No 1{table t} QD Spironolac tone 25 MG HYDROcodone -Acetaminop hen 5-325 MG HYDROcodone -Acetaminop hen 5-325 MG No 1{table t} QD HYDROcodon e-Acetamin ophen 5-325 MG Trelegy Ellipta 100-62.5-25 MCG/INH Trelegy Ellipta 100-62.5-25 MCG/INH No 1{puff} QD Trelegy Ellipta 100-62.5-2 5 MCG/INH Vitamin D3 1.25 MG (37181 UT) Vitamin D3 1.25 MG (14272 UT) No Vitamin D3 1.25 MG (72804 UT) Sulfamethox azole-Trime thoprim 800-160 MG Sulfamethox azole-Trime thoprim 800-160 MG No 1{table t} BID Sulfametho xazole-Tri methoprim 800-160 MG Zofran 4 MG Zofran 4 MG No 1{table t_as_ne eded} QD Zofran 4 MG Furosemide 20 MG Furosemide 20 MG No 1{table t} QD Furosemide 20 MG Alfuzosin HCl ER 10 MG Alfuzosin HCl ER 10 MG No Alfuzosin HCl ER 10 MG Diclofenac Sodium 75 MG Diclofenac Sodium 75 MG No 1{table t_as_ne eded} BID Diclofenac Sodium 75 MG Linzess 145 mcg Linzess 145 mcg No 1{capsu le} QD Linzess 145 mcg Clopidogrel Bisulfate 75 MG Clopidogrel Bisulfate 75 MG No 1{table t} QD Clopidogre l Bisulfate 75 MG Synthroid 25 MCG Synthroid 25 MCG No QD Synthroid 25 MCG ProAir HFA 108 (90 Base) MCG/ACT ProAir HFA 108 (90 Base) MCG/ACT No 2{puffs _as_nee ded} QID ProAir HFA 108 (90 Base) MCG/ACT Aspirin 81 MG Aspirin 81 MG No Aspirin 81 MG NexIUM 40 MG NexIUM 40 MG No NexIUM 40 MG Atenolol 100 MG Atenolol 100 MG No QD Atenolol 100 MG Ondansetron HCl 4 MG Ondansetron HCl 4 MG No 1{table t_as_ne eded} Ondansetro n HCl 4 MG Orphenadrin e Citrate ER 100 MG Orphenadrin e Citrate ER 100 MG No 1{table t} BID Orphenadri ne Citrate ER 100 MG Simvastatin 40 MG Simvastatin 40 MG No 1{table t_in_th e_eveni ng} QD Simvastati n 40 MG Ibuprofen 600 MG Ibuprofen 600 MG No TID Ibuprofen 600 MG Furosemide 40 MG Furosemide 40 MG No Furosemide 40 MG Tamsulosin HCl 0.4 MG Tamsulosin HCl 0.4 MG No 1{capsu le} QD Tamsulosin HCl 0.4 MG Atenolol 100 MG Atenolol 100 MG No 1{table t} QD Atenolol 100 MG Venlafaxine HCl ER 150 MG Venlafaxine HCl ER 150 MG No Venlafaxin e HCl ER 150 MG Levothyroxi ne Sodium 25 MCG Levothyroxi ne Sodium 25 MCG No QD Levothyrox ine Sodium 25 MCG Spironolact one 25 MG Spironolact one 25 MG No 1{table t} QD Spironolac tone 25 MG HYDROcodone -Acetaminop hen 5-325 MG HYDROcodone -Acetaminop hen 5-325 MG No 1{table t} QD HYDROcodon e-Acetamin ophen 5-325 MG Trelegy Ellipta 100-62.5-25 MCG/INH Trelegy Ellipta 100-62.5-25 MCG/INH No 1{puff} QD Trelegy Ellipta 100-62.5-2 5 MCG/INH Vitamin D3 1.25 MG (42838 UT) Vitamin D3 1.25 MG (84733 UT) No Vitamin D3 1.25 MG (19453 UT) Sulfamethox azole-Trime thoprim 800-160 MG Sulfamethox azole-Trime thoprim 800-160 MG No 1{table t} BID Sulfametho xazole-Tri methoprim 800-160 MG Zofran 4 MG Zofran 4 MG No 1{table t_as_ne eded} QD Zofran 4 MG Furosemide 20 MG Furosemide 20 MG No 1{table t} QD Furosemide 20 MG Alfuzosin HCl ER 10 MG Alfuzosin HCl ER 10 MG No Alfuzosin HCl ER 10 MG Diclofenac Sodium 75 MG Diclofenac Sodium 75 MG No 1{table t_as_ne eded} BID Diclofenac Sodium 75 MG Linzess 145 mcg Linzess 145 mcg No 1{capsu le} QD Linzess 145 mcg Clopidogrel Bisulfate 75 MG Clopidogrel Bisulfate 75 MG No 1{table t} QD Clopidogre l Bisulfate 75 MG Synthroid 25 MCG Synthroid 25 MCG No QD Synthroid 25 MCG ProAir HFA 108 (90 Base) MCG/ACT ProAir HFA 108 (90 Base) MCG/ACT No 2{puffs _as_nee ded} QID ProAir HFA 108 (90 Base) MCG/ACT Aspirin 81 MG Aspirin 81 MG No Aspirin 81 MG NexIUM 40 MG NexIUM 40 MG No NexIUM 40 MG Clopidogrel Bisulfate 75 MG Clopidogrel Bisulfate 75 MG No 1{table t} QD Clopidogre l Bisulfate 75 MG ProAir HFA 108 (90 Base) MCG/ACT ProAir HFA 108 (90 Base) MCG/ACT No 2{puffs _as_nee ded} QID ProAir HFA 108 (90 Base) MCG/ACT Trelegy Ellipta 100-62.5-25 MCG/INH Trelegy Ellipta 100-62.5-25 MCG/INH No 1{puff} QD Trelegy Ellipta 100-62.5-2 5 MCG/INH Gabapentin 100 MG Gabapentin 100 MG No Gabapentin 100 MG Aspirin Low Dose 81 MG Aspirin Low Dose 81 MG No Aspirin Low Dose 81 MG Atenolol 100 MG Atenolol 100 MG No QD Atenolol 100 MG Ondansetron HCl 4 MG Ondansetron HCl 4 MG No 1{table t_as_ne eded} Ondansetro n HCl 4 MG Orphenadrin e Citrate ER 100 MG Orphenadrin e Citrate ER 100 MG No 1{table t} BID Orphenadri ne Citrate ER 100 MG Simvastatin 40 MG Simvastatin 40 MG No 1{table t_in_th e_eveni ng} QD Simvastati n 40 MG Ibuprofen 600 MG Ibuprofen 600 MG No TID Ibuprofen 600 MG Furosemide 40 MG Furosemide 40 MG No Furosemide 40 MG Tamsulosin HCl 0.4 MG Tamsulosin HCl 0.4 MG No 1{capsu le} QD Tamsulosin HCl 0.4 MG Atenolol 100 MG Atenolol 100 MG No 1{table t} QD Atenolol 100 MG Venlafaxine HCl ER 150 MG Venlafaxine HCl ER 150 MG No Venlafaxin e HCl ER 150 MG Levothyroxi ne Sodium 25 MCG Levothyroxi ne Sodium 25 MCG No QD Levothyrox ine Sodium 25 MCG HYDROcodone -Acetaminop hen 5-325 MG HYDROcodone -Acetaminop hen 5-325 MG No 1{table t} QD HYDROcodon e-Acetamin ophen 5-325 MG Linzess 145 mcg Linzess 145 mcg No 1{capsu le} QD Linzess 145 mcg Clopidogrel Bisulfate 75 MG Clopidogrel Bisulfate 75 MG No 1{table t} QD Clopidogre l Bisulfate 75 MG Vitamin D3 1.25 MG (55003 UT) Vitamin D3 1.25 MG (24358 UT) No Vitamin D3 1.25 MG (87565 UT) Sulfamethox azole-Trime thoprim 800-160 MG Sulfamethox azole-Trime thoprim 800-160 MG No 1{table t} BID Sulfametho xazole-Tri methoprim 800-160 MG Nexium 40 MG Nexium 40 MG No Nexium 40 MG Spironolact one 25 MG Spironolact one 25 MG No 1{table t} QD Spironolac tone 25 MG Furosemide 20 MG Furosemide 20 MG No 1{table t} QD Furosemide 20 MG Alfuzosin HCl ER 10 MG Alfuzosin HCl ER 10 MG No Alfuzosin HCl ER 10 MG Trelegy Ellipta 100-62.5-25 MCG/INH Trelegy Ellipta 100-62.5-25 MCG/INH No 1{puff} QD Trelegy Ellipta 100-62.5-2 5 MCG/INH Diclofenac Sodium 75 MG Diclofenac Sodium 75 MG No 1{table t_as_ne eded} BID Diclofenac Sodium 75 MG Zofran 4 MG Zofran 4 MG No 1{table t_as_ne eded} QD Zofran 4 MG ProAir HFA 108 (90 Base) MCG/ACT ProAir HFA 108 (90 Base) MCG/ACT No 2{puffs _as_nee ded} QID ProAir HFA 108 (90 Base) MCG/ACT Aspirin 81 MG Aspirin 81 MG No Aspirin 81 MG Synthroid 25 MCG Synthroid 25 MCG No QD Synthroid 25 MCG Simvastatin 40 MG Simvastatin 40 MG No 1{table t_in_th e_eveni ng} QD Simvastati n 40 MG metFORMIN HCl ER 500 MG metFORMIN HCl ER 500 MG No BID metFORMIN HCl ER 500 MG NexIUM 40 MG NexIUM 40 MG No NexIUM 40 MG Vitamin D3 92908 UNIT Vitamin D3 17926 UNIT No 1{capsu le} Vitamin D3 04290 UNIT Atenolol 100 MG Atenolol 100 MG No QD Atenolol 100 MG Zofran 4 MG Zofran 4 MG No 1{table t_as_ne eded} TID Zofran 4 MG Hydrocodone -Acetaminop hen 5-325 MG Hydrocodone -Acetaminop hen 5-325 MG No 1{table t} QD Hydrocodon e-Acetamin ophen 5-325 MG Ondansetron HCl 4 MG Ondansetron HCl 4 MG No 1{table t_as_ne eded} Ondansetro n HCl 4 MG Atenolol 100 MG Atenolol 100 MG No 1{table t} QD Atenolol 100 MG Aspirin 81 MG Aspirin 81 MG No Aspirin 81 MG ProAir HFA 108 (90 Base) MCG/ACT ProAir HFA 108 (90 Base) MCG/ACT No 2{puffs _as_nee ded} QID ProAir HFA 108 (90 Base) MCG/ACT Alfuzosin HCl ER 10 MG Alfuzosin HCl ER 10 MG No Alfuzosin HCl ER 10 MG Levothyroxi ne Sodium 25 MCG Levothyroxi ne Sodium 25 MCG No QD Levothyrox ine Sodium 25 MCG Tamsulosin HCl 0.4 MG Tamsulosin HCl 0.4 MG No 1{capsu le} QD Tamsulosin HCl 0.4 MG Zofran 4 MG Zofran 4 MG No 1{table t_as_ne eded} QD Zofran 4 MG Synthroid 25 MCG Synthroid 25 MCG No QD Synthroid 25 MCG Orphenadrin e Citrate ER 100 MG Orphenadrin e Citrate ER 100 MG No 1{table t} BID Orphenadri ne Citrate ER 100 MG metFORMIN HCl ER 500 MG metFORMIN HCl ER 500 MG No BID metFORMIN HCl ER 500 MG Ibuprofen 600 MG Ibuprofen 600 MG No TID Ibuprofen 600 MG Furosemide 40 MG Furosemide 40 MG No Furosemide 40 MG Venlafaxine HCl ER 150 MG Venlafaxine HCl ER 150 MG No QD Venlafaxin e HCl ER 150 MG Linzess 145 mcg Linzess 145 mcg No 1{capsu le} QD Linzess 145 mcg Trelegy Ellipta 100-62.5-25 MCG/INH Trelegy Ellipta 100-62.5-25 MCG/INH No 1{puff} QD Trelegy Ellipta 100-62.5-2 5 MCG/INH Diclofenac Sodium 75 MG Diclofenac Sodium 75 MG No 1{table t_as_ne eded} BID Diclofenac Sodium 75 MG Venlafaxine HCl ER 150 MG Venlafaxine HCl ER 150 MG No QD Venlafaxin e HCl ER 150 MG Clopidogrel Bisulfate 75 MG Clopidogrel Bisulfate 75 MG No 1{table t} QD Clopidogre l Bisulfate 75 MG Aspirin 81 MG Aspirin 81 MG No Aspirin 81 MG metFORMIN HCl ER 500 MG metFORMIN HCl ER 500 MG No BID metFORMIN HCl ER 500 MG Simvastatin 40 MG Simvastatin 40 MG No 1{table t_in_th e_eveni ng} QD Simvastati n 40 MG Sulfamethox azole-Trime thoprim 800-160 MG Sulfamethox azole-Trime thoprim 800-160 MG No 1{table t} BID Sulfametho xazole-Tri methoprim 800-160 MG Linzess 145 mcg Linzess 145 mcg No 1{capsu le} QD Linzess 145 mcg Furosemide 20 MG Furosemide 20 MG No 1{table t} QD Furosemide 20 MG Venlafaxine HCl ER 150 MG Venlafaxine HCl ER 150 MG No Venlafaxin e HCl ER 150 MG NexIUM 40 MG NexIUM 40 MG No NexIUM 40 MG Atenolol 100 MG Atenolol 100 MG No QD Atenolol 100 MG Spironolact one 25 MG Spironolact one 25 MG No 1{table t} QD Spironolac tone 25 MG Vitamin D3 1.25 MG (31946 UT) Vitamin D3 1.25 MG (99512 UT) No Vitamin D3 1.25 MG (40418 UT) Simvastatin 40 MG Simvastatin 40 MG No 1{table t_in_th e_eveni ng} QD Simvastati n 40 MG HYDROcodone -Acetaminop hen 5-325 MG HYDROcodone -Acetaminop hen 5-325 MG No 1{table t} QD HYDROcodon e-Acetamin ophen 5-325 MG Hydrocodone -Acetaminop hen 5-325 MG Hydrocodone -Acetaminop hen 5-325 MG No 1{table t_as_ne eded} QID Hydrocodon e-Acetamin ophen 5-325 MG Spironolact one 25 MG Spironolact one 25 MG No 1{table t} QD Spironolac tone 25 MG Aspirin 81 MG Aspirin 81 MG No Aspirin 81 MG Furosemide 20 MG Furosemide 20 MG No 1{table t} QD Furosemide 20 MG Levothyroxi ne Sodium 50 MCG Levothyroxi ne Sodium 50 MCG No Levothyrox ine Sodium 50 MCG Ondansetron HCl 4 MG Ondansetron HCl 4 MG No 1{table t_as_ne eded} Ondansetro n HCl 4 MG Synthroid 25 MCG Synthroid 25 MCG No QD Synthroid 25 MCG Atenolol 100 MG Atenolol 100 MG No 1{table t} QD Atenolol 100 MG ProAir HFA 108 (90 Base) MCG/ACT ProAir HFA 108 (90 Base) MCG/ACT No 2{puffs _as_nee ded} QID ProAir HFA 108 (90 Base) MCG/ACT Alfuzosin HCl ER 10 MG Alfuzosin HCl ER 10 MG No Alfuzosin HCl ER 10 MG Levothyroxi ne Sodium 25 MCG Levothyroxi ne Sodium 25 MCG No QD Levothyrox ine Sodium 25 MCG Tamsulosin HCl 0.4 MG Tamsulosin HCl 0.4 MG No 1{capsu le} QD Tamsulosin HCl 0.4 MG Zofran 4 MG Zofran 4 MG No 1{table t_as_ne eded} QD Zofran 4 MG Synthroid 25 MCG Synthroid 25 MCG No QD Synthroid 25 MCG Orphenadrin e Citrate ER 100 MG Orphenadrin e Citrate ER 100 MG No 1{table t} BID Orphenadri ne Citrate ER 100 MG metFORMIN HCl ER 500 MG metFORMIN HCl ER 500 MG No BID metFORMIN HCl ER 500 MG Ibuprofen 600 MG Ibuprofen 600 MG No TID Ibuprofen 600 MG Furosemide 40 MG Furosemide 40 MG No Furosemide 40 MG Linzess 145 mcg Linzess 145 mcg No 1{capsu le} QD Linzess 145 mcg Trelegy Ellipta 100-62.5-25 MCG/INH Trelegy Ellipta 100-62.5-25 MCG/INH No 1{puff} QD Trelegy Ellipta 100-62.5-2 5 MCG/INH Diclofenac Sodium 75 MG Diclofenac Sodium 75 MG No 1{table t_as_ne eded} BID Diclofenac Sodium 75 MG Venlafaxine HCl ER 150 MG Venlafaxine HCl ER 150 MG No QD Venlafaxin e HCl ER 150 MG Clopidogrel Bisulfate 75 MG Clopidogrel Bisulfate 75 MG No 1{table t} QD Clopidogre l Bisulfate 75 MG Aspirin 81 MG Aspirin 81 MG No Aspirin 81 MG metFORMIN HCl ER 500 MG metFORMIN HCl ER 500 MG No BID metFORMIN HCl ER 500 MG Simvastatin 40 MG Simvastatin 40 MG No 1{table t_in e_eveni ng} QD Simvastati n 40 MG Sulfamethox azole-Trime thoprim 800-160 MG Sulfamethox azole-Trime thoprim 800-160 MG No 1{table t} BID Sulfametho xazole-Tri methoprim 800-160 MG Furosemide 20 MG Furosemide 20 MG No 1{table t} QD Furosemide 20 MG Venlafaxine HCl ER 150 MG Venlafaxine HCl ER 150 MG No Venlafaxin e HCl ER 150 MG NexIUM 40 MG NexIUM 40 MG No NexIUM 40 MG Atenolol 100 MG Atenolol 100 MG No QD Atenolol 100 MG Spironolact one 25 MG Spironolact one 25 MG No 1{table t} QD Spironolac tone 25 MG Vitamin D3 1.25 MG (82984 UT) Vitamin D3 1.25 MG (98812 UT) No Vitamin D3 1.25 MG (46544 UT) Simvastatin 40 MG Simvastatin 40 MG No 1{table t_in e_eveni ng} QD Simvastati n 40 MG HYDROcodone -Acetaminop hen 5-325 MG HYDROcodone -Acetaminop hen 5-325 MG No 1{table t} QD HYDROcodon e-Acetamin ophen 5-325 MG Ondansetron HCl 4 MG Ondansetron HCl 4 MG No 1{table t_as_ne eded} Ondansetro n HCl 4 MG Atenolol 100 MG Atenolol 100 MG No 1{table t} QD Atenolol 100 MG ProAir HFA 108 (90 Base) MCG/ACT ProAir HFA 108 (90 Base) MCG/ACT No 2{puffs _as_nee ded} QID ProAir HFA 108 (90 Base) MCG/ACT Alfuzosin HCl ER 10 MG Alfuzosin HCl ER 10 MG No Alfuzosin HCl ER 10 MG Levothyroxi ne Sodium 25 MCG Levothyroxi ne Sodium 25 MCG No QD Levothyrox ine Sodium 25 MCG Tamsulosin HCl 0.4 MG Tamsulosin HCl 0.4 MG No 1{capsu le} QD Tamsulosin HCl 0.4 MG Zofran 4 MG Zofran 4 MG No 1{table t_as_ne eded} QD Zofran 4 MG Synthroid 25 MCG Synthroid 25 MCG No QD Synthroid 25 MCG Orphenadrin e Citrate ER 100 MG Orphenadrin e Citrate ER 100 MG No 1{table t} BID Orphenadri ne Citrate ER 100 MG metFORMIN HCl ER 500 MG metFORMIN HCl ER 500 MG No BID metFORMIN HCl ER 500 MG Ibuprofen 600 MG Ibuprofen 600 MG No TID Ibuprofen 600 MG Furosemide 40 MG Furosemide 40 MG No Furosemide 40 MG Linzess 145 mcg Linzess 145 mcg No 1{capsu le} QD Linzess 145 mcg Trelegy Ellipta 100-62.5-25 MCG/INH Trelegy Ellipta 100-62.5-25 MCG/INH No 1{puff} QD Trelegy Ellipta 100-62.5-2 5 MCG/INH Diclofenac Sodium 75 MG Diclofenac Sodium 75 MG No 1{table t_as_ne eded} BID Diclofenac Sodium 75 MG Venlafaxine HCl ER 150 MG Venlafaxine HCl ER 150 MG No QD Venlafaxin e HCl ER 150 MG Clopidogrel Bisulfate 75 MG Clopidogrel Bisulfate 75 MG No 1{table t} QD Clopidogre l Bisulfate 75 MG Aspirin 81 MG Aspirin 81 MG No Aspirin 81 MG metFORMIN HCl ER 500 MG metFORMIN HCl ER 500 MG No BID metFORMIN HCl ER 500 MG Simvastatin 40 MG Simvastatin 40 MG No 1{table t_in_th e_eveni ng} QD Simvastati n 40 MG Sulfamethox azole-Trime thoprim 800-160 MG Sulfamethox azole-Trime thoprim 800-160 MG No 1{table t} BID Sulfametho xazole-Tri methoprim 800-160 MG Furosemide 20 MG Furosemide 20 MG No 1{table t} QD Furosemide 20 MG Venlafaxine HCl ER 150 MG Venlafaxine HCl ER 150 MG No Venlafaxin e HCl ER 150 MG NexIUM 40 MG NexIUM 40 MG No NexIUM 40 MG Atenolol 100 MG Atenolol 100 MG No QD Atenolol 100 MG Spironolact one 25 MG Spironolact one 25 MG No 1{table t} QD Spironolac tone 25 MG Vitamin D3 1.25 MG (53868 UT) Vitamin D3 1.25 MG (81179 UT) No Vitamin D3 1.25 MG (52123 UT) Simvastatin 40 MG Simvastatin 40 MG No 1{table t_in_th e_eveni ng} QD Simvastati n 40 MG HYDROcodone -Acetaminop hen 5-325 MG HYDROcodone -Acetaminop hen 5-325 MG No 1{table t} QD HYDROcodon e-Acetamin ophen 5-325 MG Ondansetron HCl 4 MG Ondansetron HCl 4 MG No 1{table t_as_ne eded} Ondansetro n HCl 4 MG Atenolol 100 MG Atenolol 100 MG No 1{table t} QD Atenolol 100 MG ProAir HFA 108 (90 Base) MCG/ACT ProAir HFA 108 (90 Base) MCG/ACT No 2{puffs _as_nee ded} QID ProAir HFA 108 (90 Base) MCG/ACT Alfuzosin HCl ER 10 MG Alfuzosin HCl ER 10 MG No Alfuzosin HCl ER 10 MG Levothyroxi ne Sodium 25 MCG Levothyroxi ne Sodium 25 MCG No QD Levothyrox ine Sodium 25 MCG Tamsulosin HCl 0.4 MG Tamsulosin HCl 0.4 MG No 1{capsu le} QD Tamsulosin HCl 0.4 MG Zofran 4 MG Zofran 4 MG No 1{table t_as_ne eded} QD Zofran 4 MG Synthroid 25 MCG Synthroid 25 MCG No QD Synthroid 25 MCG Orphenadrin e Citrate ER 100 MG Orphenadrin e Citrate ER 100 MG No 1{table t} BID Orphenadri ne Citrate ER 100 MG metFORMIN HCl ER 500 MG metFORMIN HCl ER 500 MG No BID metFORMIN HCl ER 500 MG Ibuprofen 600 MG Ibuprofen 600 MG No TID Ibuprofen 600 MG Furosemide 40 MG Furosemide 40 MG No Furosemide 40 MG Linzess 145 mcg Linzess 145 mcg No 1{capsu le} QD Linzess 145 mcg Trelegy Ellipta 100-62.5-25 MCG/INH Trelegy Ellipta 100-62.5-25 MCG/INH No 1{puff} QD Trelegy Ellipta 100-62.5-2 5 MCG/INH Diclofenac Sodium 75 MG Diclofenac Sodium 75 MG No 1{table t_as_ne eded} BID Diclofenac Sodium 75 MG Venlafaxine HCl ER 150 MG Venlafaxine HCl ER 150 MG No QD Venlafaxin e HCl ER 150 MG Clopidogrel Bisulfate 75 MG Clopidogrel Bisulfate 75 MG No 1{table t} QD Clopidogre l Bisulfate 75 MG Aspirin 81 MG Aspirin 81 MG No Aspirin 81 MG metFORMIN HCl ER 500 MG metFORMIN HCl ER 500 MG No BID metFORMIN HCl ER 500 MG Simvastatin 40 MG Simvastatin 40 MG No 1{table t_in e_eveni ng} QD Simvastati n 40 MG Sulfamethox azole-Trime thoprim 800-160 MG Sulfamethox azole-Trime thoprim 800-160 MG No 1{table t} BID Sulfametho xazole-Tri methoprim 800-160 MG Furosemide 20 MG Furosemide 20 MG No 1{table t} QD Furosemide 20 MG Venlafaxine HCl ER 150 MG Venlafaxine HCl ER 150 MG No Venlafaxin e HCl ER 150 MG NexIUM 40 MG NexIUM 40 MG No NexIUM 40 MG Atenolol 100 MG Atenolol 100 MG No QD Atenolol 100 MG Spironolact one 25 MG Spironolact one 25 MG No 1{table t} QD Spironolac tone 25 MG Vitamin D3 1.25 MG (49845 UT) Vitamin D3 1.25 MG (18386 UT) No Vitamin D3 1.25 MG (78565 UT) Simvastatin 40 MG Simvastatin 40 MG No 1{table t_in e_eveni ng} QD Simvastati n 40 MG HYDROcodone -Acetaminop hen 5-325 MG HYDROcodone -Acetaminop hen 5-325 MG No 1{table t} QD HYDROcodon e-Acetamin ophen 5-325 MG Hydrocodone -Acetaminop hen 5-325 MG Hydrocodone -Acetaminop hen 5-325 MG No 1{table t} QD Hydrocodon e-Acetamin ophen 5-325 MG Nexium 40 MG Nexium 40 MG No Nexium 40 MG Aspirin Low Dose 81 MG Aspirin Low Dose 81 MG No Aspirin Low Dose 81 MG Trelegy Ellipta 100-62.5-25 MCG/INH Trelegy Ellipta 100-62.5-25 MCG/INH No 1{puff} QD Trelegy Ellipta 100-62.5-2 5 MCG/INH Ondansetron HCl 4 MG Ondansetron HCl 4 MG No 1{table t_as_ne eded} Ondansetro n HCl 4 MG Atenolol 100 MG Atenolol 100 MG No 1{table t} QD Atenolol 100 MG Linzess 145 mcg Linzess 145 mcg No 1{capsu le} QD Linzess 145 mcg ProAir HFA 108 (90 Base) MCG/ACT ProAir HFA 108 (90 Base) MCG/ACT No 2{puffs _as_nee ded} QID ProAir HFA 108 (90 Base) MCG/ACT Alfuzosin HCl ER 10 MG Alfuzosin HCl ER 10 MG No Alfuzosin HCl ER 10 MG Levothyroxi ne Sodium 25 MCG Levothyroxi ne Sodium 25 MCG No QD Levothyrox ine Sodium 25 MCG Tamsulosin HCl 0.4 MG Tamsulosin HCl 0.4 MG No 1{capsu le} QD Tamsulosin HCl 0.4 MG Zofran 4 MG Zofran 4 MG No 1{table t_as_ne eded} QD Zofran 4 MG Synthroid 25 MCG Synthroid 25 MCG No QD Synthroid 25 MCG Orphenadrin e Citrate ER 100 MG Orphenadrin e Citrate ER 100 MG No 1{table t} BID Orphenadri ne Citrate ER 100 MG metFORMIN HCl ER 500 MG metFORMIN HCl ER 500 MG No BID metFORMIN HCl ER 500 MG Ibuprofen 600 MG Ibuprofen 600 MG No TID Ibuprofen 600 MG Furosemide 40 MG Furosemide 40 MG No Furosemide 40 MG Atenolol 100 MG Atenolol 100 MG No QD Atenolol 100 MG Linzess 145 mcg Linzess 145 mcg No 1{capsu le} QD Linzess 145 mcg Trelegy Ellipta 100-62.5-25 MCG/INH Trelegy Ellipta 100-62.5-25 MCG/INH No 1{puff} QD Trelegy Ellipta 100-62.5-2 5 MCG/INH Diclofenac Sodium 75 MG Diclofenac Sodium 75 MG No 1{table t_as_ne eded} BID Diclofenac Sodium 75 MG Venlafaxine HCl ER 150 MG Venlafaxine HCl ER 150 MG No QD Venlafaxin e HCl ER 150 MG Clopidogrel Bisulfate 75 MG Clopidogrel Bisulfate 75 MG No 1{table t} QD Clopidogre l Bisulfate 75 MG Aspirin 81 MG Aspirin 81 MG No Aspirin 81 MG metFORMIN HCl ER 500 MG metFORMIN HCl ER 500 MG No BID metFORMIN HCl ER 500 MG Simvastatin 40 MG Simvastatin 40 MG No 1{table t_in e_eveni ng} QD Simvastati n 40 MG Sulfamethox azole-Trime thoprim 800-160 MG Sulfamethox azole-Trime thoprim 800-160 MG No 1{table t} BID Sulfametho xazole-Tri methoprim 800-160 MG ProAir HFA 108 (90 Base) MCG/ACT ProAir HFA 108 (90 Base) MCG/ACT No 2{puffs _as_nee ded} QID ProAir HFA 108 (90 Base) MCG/ACT Furosemide 20 MG Furosemide 20 MG No 1{table t} QD Furosemide 20 MG Venlafaxine HCl ER 150 MG Venlafaxine HCl ER 150 MG No Venlafaxin e HCl ER 150 MG NexIUM 40 MG NexIUM 40 MG No NexIUM 40 MG Atenolol 100 MG Atenolol 100 MG No QD Atenolol 100 MG Spironolact one 25 MG Spironolact one 25 MG No 1{table t} QD Spironolac tone 25 MG Vitamin D3 1.25 MG (45054 UT) Vitamin D3 1.25 MG (70020 UT) No Vitamin D3 1.25 MG (66351 UT) Simvastatin 40 MG Simvastatin 40 MG No 1{table t_in e_eveni ng} QD Simvastati n 40 MG HYDROcodone -Acetaminop hen 5-325 MG HYDROcodone -Acetaminop hen 5-325 MG No 1{table t} QD HYDROcodon e-Acetamin ophen 5-325 MG Levothyroxi ne Sodium 50 MCG Levothyroxi ne Sodium 50 MCG No Levothyrox ine Sodium 50 MCG Venlafaxine HCl ER 150 MG Venlafaxine HCl ER 150 MG No QD Venlafaxin e HCl ER 150 MG Aspirin 81 MG Aspirin 81 MG No Aspirin 81 MG Clopidogrel Bisulfate 75 MG Clopidogrel Bisulfate 75 MG No 1{table t} QD Clopidogre l Bisulfate 75 MG Zofran 4 MG Zofran 4 MG No 1{table t_as_ne eded} TID Zofran 4 MG Furosemide 20 MG Furosemide 20 MG No 1{table t} QD Furosemide 20 MG Aspirin 81 MG Aspirin 81 MG No Aspirin 81 MG Ondansetron HCl 4 MG Ondansetron HCl 4 MG No 1{table t_as_ne eded} Ondansetro n HCl 4 MG Atenolol 100 MG Atenolol 100 MG No 1{table t} QD Atenolol 100 MG ProAir HFA 108 (90 Base) MCG/ACT ProAir HFA 108 (90 Base) MCG/ACT No 2{puffs _as_nee ded} QID ProAir HFA 108 (90 Base) MCG/ACT Alfuzosin HCl ER 10 MG Alfuzosin HCl ER 10 MG No Alfuzosin HCl ER 10 MG Synthroid 25 MCG Synthroid 25 MCG No QD Synthroid 25 MCG Levothyroxi ne Sodium 25 MCG Levothyroxi ne Sodium 25 MCG No QD Levothyrox ine Sodium 25 MCG Tamsulosin HCl 0.4 MG Tamsulosin HCl 0.4 MG No 1{capsu le} QD Tamsulosin HCl 0.4 MG Zofran 4 MG Zofran 4 MG No 1{table t_as_ne eded} QD Zofran 4 MG Synthroid 25 MCG Synthroid 25 MCG No QD Synthroid 25 MCG Orphenadrin e Citrate ER 100 MG Orphenadrin e Citrate ER 100 MG No 1{table t} BID Orphenadri ne Citrate ER 100 MG metFORMIN HCl ER 500 MG metFORMIN HCl ER 500 MG No BID metFORMIN HCl ER 500 MG Ibuprofen 600 MG Ibuprofen 600 MG No TID Ibuprofen 600 MG Furosemide 40 MG Furosemide 40 MG No Furosemide 40 MG Linzess 145 mcg Linzess 145 mcg No 1{capsu le} QD Linzess 145 mcg Trelegy Ellipta 100-62.5-25 MCG/INH Trelegy Ellipta 100-62.5-25 MCG/INH No 1{puff} QD Trelegy Ellipta 100-62.5-2 5 MCG/INH Simvastatin 40 MG Simvastatin 40 MG No 1{table t_in e_eveni ng} QD Simvastati n 40 MG Diclofenac Sodium 75 MG Diclofenac Sodium 75 MG No 1{table t_as_ne eded} BID Diclofenac Sodium 75 MG Venlafaxine HCl ER 150 MG Venlafaxine HCl ER 150 MG No QD Venlafaxin e HCl ER 150 MG Clopidogrel Bisulfate 75 MG Clopidogrel Bisulfate 75 MG No 1{table t} QD Clopidogre l Bisulfate 75 MG Aspirin 81 MG Aspirin 81 MG No Aspirin 81 MG metFORMIN HCl ER 500 MG metFORMIN HCl ER 500 MG No BID metFORMIN HCl ER 500 MG Simvastatin 40 MG Simvastatin 40 MG No 1{table t_in e_eveni ng} QD Simvastati n 40 MG Sulfamethox azole-Trime thoprim 800-160 MG Sulfamethox azole-Trime thoprim 800-160 MG No 1{table t} BID Sulfametho xazole-Tri methoprim 800-160 MG Furosemide 20 MG Furosemide 20 MG No 1{table t} QD Furosemide 20 MG Venlafaxine HCl ER 150 MG Venlafaxine HCl ER 150 MG No Venlafaxin e HCl ER 150 MG Spironolact one 25 MG Spironolact one 25 MG No 1{table t} QD Spironolac tone 25 MG NexIUM 40 MG NexIUM 40 MG No NexIUM 40 MG Atenolol 100 MG Atenolol 100 MG No QD Atenolol 100 MG Spironolact one 25 MG Spironolact one 25 MG No 1{table t} QD Spironolac tone 25 MG Vitamin D3 1.25 MG (63396 UT) Vitamin D3 1.25 MG (70062 UT) No Vitamin D3 1.25 MG (41358 UT) Simvastatin 40 MG Simvastatin 40 MG No 1{table t_in e_eveni ng} QD Simvastati n 40 MG HYDROcodone -Acetaminop hen 5-325 MG HYDROcodone -Acetaminop hen 5-325 MG No 1{table t} QD HYDROcodon e-Acetamin ophen 5-325 MG Atenolol 100 MG Atenolol 100 MG No Atenolol 100 MG Hydrocodone -Acetaminop hen 5-325 MG Hydrocodone -Acetaminop hen 5-325 MG No 1{table t_as_ne eded} QID Hydrocodon e-Acetamin ophen 5-325 MG Vitamin D3 54371 UNIT Vitamin D3 87597 UNIT No 1{capsu le} Vitamin D3 15666 UNIT Gabapentin 100 MG Gabapentin 100 MG No Gabapentin 100 MG Zofran 4 MG Zofran 4 MG No 1{table t_as_ne eded} QD Zofran 4 MG Tamsulosin HCl 0.4 MG Tamsulosin HCl 0.4 MG No 1{capsu le} QD Tamsulosin HCl 0.4 MG Synthroid 25 MCG Synthroid 25 MCG No QD Synthroid 25 MCG Simvastatin 40 MG Simvastatin 40 MG No 1{table t_in_th e_eveni ng} QD Simvastati n 40 MG Orphenadrin e Citrate ER 100 MG Orphenadrin e Citrate ER 100 MG No 1{table t} BID Orphenadri ne Citrate ER 100 MG Levothyroxi ne Sodium 25 MCG Levothyroxi ne Sodium 25 MCG No QD Levothyrox ine Sodium 25 MCG Ibuprofen 600 MG Ibuprofen 600 MG No TID Ibuprofen 600 MG Sulfamethox azole-Trime thoprim 800-160 MG Sulfamethox azole-Trime thoprim 800-160 MG No 1{table t} BID Sulfametho xazole-Tri methoprim 800-160 MG Clopidogrel Bisulfate 75 MG Clopidogrel Bisulfate 75 MG No 1{table t} QD Clopidogre l Bisulfate 75 MG Furosemide 40 MG Furosemide 40 MG No Furosemide 40 MG Alfuzosin HCl ER 10 MG Alfuzosin HCl ER 10 MG No Alfuzosin HCl ER 10 MG Linzess 145 mcg Linzess 145 mcg No 1{capsu le} QD Linzess 145 mcg Trelegy Ellipta 100-62.5-25 MCG/INH Trelegy Ellipta 100-62.5-25 MCG/INH No 1{puff} QD Trelegy Ellipta 100-62.5-2 5 MCG/INH Diclofenac Sodium 75 MG Diclofenac Sodium 75 MG No 1{table t_as_ne eded} BID Diclofenac Sodium 75 MG Venlafaxine HCl ER 150 MG Venlafaxine HCl ER 150 MG No Venlafaxin e HCl ER 150 MG ProAir HFA 108 (90 Base) MCG/ACT ProAir HFA 108 (90 Base) MCG/ACT No 2{puffs _as_nee ded} QID ProAir HFA 108 (90 Base) MCG/ACT Aspirin 81 MG Aspirin 81 MG No Aspirin 81 MG Venlafaxine HCl ER 150 MG Venlafaxine HCl ER 150 MG No QD Venlafaxin e HCl ER 150 MG Ondansetron HCl 4 MG Ondansetron HCl 4 MG No 1{table t_as_ne eded} Ondansetro n HCl 4 MG metFORMIN HCl ER 500 MG metFORMIN HCl ER 500 MG No metFORMIN HCl ER 500 MG Furosemide 20 MG Furosemide 20 MG No 1{table t} QD Furosemide 20 MG Atenolol 100 MG Atenolol 100 MG No 1{table t} QD Atenolol 100 MG NexIUM 40 MG NexIUM 40 MG No NexIUM 40 MG Atenolol 100 MG Atenolol 100 MG No QD Atenolol 100 MG Spironolact one 25 MG Spironolact one 25 MG No 1{table t} QD Spironolac tone 25 MG Vitamin D3 1.25 MG (20728 UT) Vitamin D3 1.25 MG (27577 UT) No Vitamin D3 1.25 MG (48304 UT) Simvastatin 40 MG Simvastatin 40 MG No 1{table t_in_ e_eveni ng} QD Simvastati n 40 MG HYDROcodone -Acetaminop hen 5-325 MG HYDROcodone -Acetaminop hen 5-325 MG No 1{table t} QD HYDROcodon e-Acetamin ophen 5-325 MG Zofran 4 MG Zofran 4 MG No 1{table t_as_ne eded} QD Zofran 4 MG Tamsulosin HCl 0.4 MG Tamsulosin HCl 0.4 MG No 1{capsu le} QD Tamsulosin HCl 0.4 MG Synthroid 25 MCG Synthroid 25 MCG No QD Synthroid 25 MCG Simvastatin 40 MG Simvastatin 40 MG No 1{table t_in e_eveni ng} QD Simvastati n 40 MG Orphenadrin e Citrate ER 100 MG Orphenadrin e Citrate ER 100 MG No 1{table t} BID Orphenadri ne Citrate ER 100 MG Levothyroxi ne Sodium 25 MCG Levothyroxi ne Sodium 25 MCG No QD Levothyrox ine Sodium 25 MCG Ibuprofen 600 MG Ibuprofen 600 MG No TID Ibuprofen 600 MG Sulfamethox azole-Trime thoprim 800-160 MG Sulfamethox azole-Trime thoprim 800-160 MG No 1{table t} BID Sulfametho xazole-Tri methoprim 800-160 MG Clopidogrel Bisulfate 75 MG Clopidogrel Bisulfate 75 MG No 1{table t} QD Clopidogre l Bisulfate 75 MG Furosemide 40 MG Furosemide 40 MG No Furosemide 40 MG Alfuzosin HCl ER 10 MG Alfuzosin HCl ER 10 MG No Alfuzosin HCl ER 10 MG Linzess 145 mcg Linzess 145 mcg No 1{capsu le} QD Linzess 145 mcg Trelegy Ellipta 100-62.5-25 MCG/INH Trelegy Ellipta 100-62.5-25 MCG/INH No 1{puff} QD Trelegy Ellipta 100-62.5-2 5 MCG/INH Diclofenac Sodium 75 MG Diclofenac Sodium 75 MG No 1{table t_as_ne eded} BID Diclofenac Sodium 75 MG Venlafaxine HCl ER 150 MG Venlafaxine HCl ER 150 MG No Venlafaxin e HCl ER 150 MG ProAir HFA 108 (90 Base) MCG/ACT ProAir HFA 108 (90 Base) MCG/ACT No 2{puffs _as_nee ded} QID ProAir HFA 108 (90 Base) MCG/ACT Aspirin 81 MG Aspirin 81 MG No Aspirin 81 MG Venlafaxine HCl ER 150 MG Venlafaxine HCl ER 150 MG No QD Venlafaxin e HCl ER 150 MG Ondansetron HCl 4 MG Ondansetron HCl 4 MG No 1{table t_as_ne eded} Ondansetro n HCl 4 MG metFORMIN HCl ER 500 MG metFORMIN HCl ER 500 MG No metFORMIN HCl ER 500 MG Furosemide 20 MG Furosemide 20 MG No 1{table t} QD Furosemide 20 MG Atenolol 100 MG Atenolol 100 MG No 1{table t} QD Atenolol 100 MG NexIUM 40 MG NexIUM 40 MG No NexIUM 40 MG Atenolol 100 MG Atenolol 100 MG No QD Atenolol 100 MG Spironolact one 25 MG Spironolact one 25 MG No 1{table t} QD Spironolac tone 25 MG Vitamin D3 1.25 MG (86944 UT) Vitamin D3 1.25 MG (62742 UT) No Vitamin D3 1.25 MG (45692 UT) Simvastatin 40 MG Simvastatin 40 MG No 1{table t_in e_eveni ng} QD Simvastati n 40 MG HYDROcodone -Acetaminop hen 5-325 MG HYDROcodone -Acetaminop hen 5-325 MG No 1{table t} QD HYDROcodon e-Acetamin ophen 5-325 MG Levothyroxi ne Sodium 25 MCG Levothyroxi ne Sodium 25 MCG No QD Levothyrox ine Sodium 25 MCG Ibuprofen 600 MG Ibuprofen 600 MG No TID Ibuprofen 600 MG Zofran 4 MG Zofran 4 MG No 1{table t_as_ne eded} QD Zofran 4 MG Tamsulosin HCl 0.4 MG Tamsulosin HCl 0.4 MG No 1{capsu le} QD Tamsulosin HCl 0.4 MG Clopidogrel Bisulfate 75 MG Clopidogrel Bisulfate 75 MG No 1{table t} QD Clopidogre l Bisulfate 75 MG Furosemide 40 MG Furosemide 40 MG No Furosemide 40 MG Simvastatin 40 MG Simvastatin 40 MG No 1{table t_in e_eveni ng} QD Simvastati n 40 MG Orphenadrin e Citrate ER 100 MG Orphenadrin e Citrate ER 100 MG No 1{table t} BID Orphenadri ne Citrate ER 100 MG Alfuzosin HCl ER 10 MG Alfuzosin HCl ER 10 MG No Alfuzosin HCl ER 10 MG Sulfamethox azole-Trime thoprim 800-160 MG Sulfamethox azole-Trime thoprim 800-160 MG No 1{table t} BID Sulfametho xazole-Tri methoprim 800-160 MG metFORMIN HCl ER 500 MG metFORMIN HCl ER 500 MG No metFORMIN HCl ER 500 MG Linzess 145 mcg Linzess 145 mcg No 1{capsu le} QD Linzess 145 mcg Trelegy Ellipta 100-62.5-25 MCG/INH Trelegy Ellipta 100-62.5-25 MCG/INH No 1{puff} QD Trelegy Ellipta 100-62.5-2 5 MCG/INH Diclofenac Sodium 75 MG Diclofenac Sodium 75 MG No 1{table t_as_ne eded} BID Diclofenac Sodium 75 MG Venlafaxine HCl ER 150 MG Venlafaxine HCl ER 150 MG No Venlafaxin e HCl ER 150 MG Ondansetron HCl 4 MG Ondansetron HCl 4 MG No 1{table t_as_ne eded} Ondansetro n HCl 4 MG Aspirin 81 MG Aspirin 81 MG No Aspirin 81 MG Venlafaxine HCl ER 150 MG Venlafaxine HCl ER 150 MG No QD Venlafaxin e HCl ER 150 MG ProAir HFA 108 (90 Base) MCG/ACT ProAir HFA 108 (90 Base) MCG/ACT No 2{puffs _as_nee ded} QID ProAir HFA 108 (90 Base) MCG/ACT Synthroid 25 MCG Synthroid 25 MCG No QD Synthroid 25 MCG Furosemide 20 MG Furosemide 20 MG No 1{table t} QD Furosemide 20 MG NexIUM 40 MG NexIUM 40 MG No NexIUM 40 MG Vitamin D3 1.25 MG ( UT) Vitamin D3 1.25 MG ( UT) No Vitamin D3 1.25 MG ( UT) Atenolol 100 MG Atenolol 100 MG No Atenolol 100 MG Spironolact one 25 MG Spironolact one 25 MG No 1{table t} QD Spironolac tone 25 MG Simvastatin 40 MG Simvastatin 40 MG No 1{table t_in e_eveni ng} QD Simvastati n 40 MG HYDROcodone -Acetaminop hen 5-325 MG HYDROcodone -Acetaminop hen 5-325 MG No 1{table t} QD HYDROcodon e-Acetamin ophen 5-325 MG Levothyroxi ne Sodium 25 MCG Levothyroxi ne Sodium 25 MCG No QD Levothyrox ine Sodium 25 MCG Ibuprofen 600 MG Ibuprofen 600 MG No TID Ibuprofen 600 MG Zofran 4 MG Zofran 4 MG No 1{table t_as_ne eded} QD Zofran 4 MG Tamsulosin HCl 0.4 MG Tamsulosin HCl 0.4 MG No 1{capsu le} QD Tamsulosin HCl 0.4 MG Clopidogrel Bisulfate 75 MG Clopidogrel Bisulfate 75 MG No 1{table t} QD Clopidogre l Bisulfate 75 MG Furosemide 40 MG Furosemide 40 MG No Furosemide 40 MG Simvastatin 40 MG Simvastatin 40 MG No 1{table t_in e_eveni ng} QD Simvastati n 40 MG Orphenadrin e Citrate ER 100 MG Orphenadrin e Citrate ER 100 MG No 1{table t} BID Orphenadri ne Citrate ER 100 MG Alfuzosin HCl ER 10 MG Alfuzosin HCl ER 10 MG No Alfuzosin HCl ER 10 MG Sulfamethox azole-Trime thoprim 800-160 MG Sulfamethox azole-Trime thoprim 800-160 MG No 1{table t} BID Sulfametho xazole-Tri methoprim 800-160 MG metFORMIN HCl ER 500 MG metFORMIN HCl ER 500 MG No metFORMIN HCl ER 500 MG Linzess 145 mcg Linzess 145 mcg No 1{capsu le} QD Linzess 145 mcg Trelegy Ellipta 100-62.5-25 MCG/INH Trelegy Ellipta 100-62.5-25 MCG/INH No 1{puff} QD Trelegy Ellipta 100-62.5-2 5 MCG/INH Diclofenac Sodium 75 MG Diclofenac Sodium 75 MG No 1{table t_as_ne eded} BID Diclofenac Sodium 75 MG Venlafaxine HCl ER 150 MG Venlafaxine HCl ER 150 MG No Venlafaxin e HCl ER 150 MG Ondansetron HCl 4 MG Ondansetron HCl 4 MG No 1{table t_as_ne eded} Ondansetro n HCl 4 MG Aspirin 81 MG Aspirin 81 MG No Aspirin 81 MG Venlafaxine HCl ER 150 MG Venlafaxine HCl ER 150 MG No QD Venlafaxin e HCl ER 150 MG ProAir HFA 108 (90 Base) MCG/ACT ProAir HFA 108 (90 Base) MCG/ACT No 2{puffs _as_nee ded} QID ProAir HFA 108 (90 Base) MCG/ACT Synthroid 25 MCG Synthroid 25 MCG No QD Synthroid 25 MCG Furosemide 20 MG Furosemide 20 MG No 1{table t} QD Furosemide 20 MG NexIUM 40 MG NexIUM 40 MG No NexIUM 40 MG Vitamin D3 1.25 MG (14148 UT) Vitamin D3 1.25 MG (73966 UT) No Vitamin D3 1.25 MG (97168 UT) Atenolol 100 MG Atenolol 100 MG No Atenolol 100 MG Spironolact one 25 MG Spironolact one 25 MG No 1{table t} QD Spironolac tone 25 MG Simvastatin 40 MG Simvastatin 40 MG No 1{table t_in_ e_eveni ng} QD Simvastati n 40 MG HYDROcodone -Acetaminop hen 5-325 MG HYDROcodone -Acetaminop hen 5-325 MG No 1{table t} QD HYDROcodon e-Acetamin ophen 5-325 MG Hydrocodone -Acetaminop hen 5-325 MG Hydrocodone -Acetaminop hen 5-325 MG No 1{table t} QD Hydrocodon e-Acetamin ophen 5-325 MG Nexium 40 MG Nexium 40 MG No Nexium 40 MG Aspirin Low Dose 81 MG Aspirin Low Dose 81 MG No Aspirin Low Dose 81 MG Trelegy Ellipta 100-62.5-25 MCG/INH Trelegy Ellipta 100-62.5-25 MCG/INH No 1{puff} QD Trelegy Ellipta 100-62.5-2 5 MCG/INH Linzess 145 mcg Linzess 145 mcg No 1{capsu le} QD Linzess 145 mcg Levothyroxi ne Sodium 25 MCG Levothyroxi ne Sodium 25 MCG No Levothyrox ine Sodium 25 MCG Ibuprofen 600 MG Ibuprofen 600 MG No TID Ibuprofen 600 MG Simvastatin 40 MG Simvastatin 40 MG No 1{table t_in_th e_eveni ng} QD Simvastati n 40 MG Tamsulosin HCl 0.4 MG Tamsulosin HCl 0.4 MG No 1{capsu le} QD Tamsulosin HCl 0.4 MG Atenolol 100 MG Atenolol 100 MG No QD Atenolol 100 MG Furosemide 40 MG Furosemide 40 MG No Furosemide 40 MG Clopidogrel Bisulfate 75 MG Clopidogrel Bisulfate 75 MG No 1{table t} QD Clopidogre l Bisulfate 75 MG Orphenadrin e Citrate ER 100 MG Orphenadrin e Citrate ER 100 MG No 1{table t} BID Orphenadri ne Citrate ER 100 MG Alfuzosin HCl ER 10 MG Alfuzosin HCl ER 10 MG No Alfuzosin HCl ER 10 MG ProAir HFA 108 (90 Base) MCG/ACT ProAir HFA 108 (90 Base) MCG/ACT No 2{puffs _as_nee ded} QID ProAir HFA 108 (90 Base) MCG/ACT Sulfamethox azole-Trime thoprim 800-160 MG Sulfamethox azole-Trime thoprim 800-160 MG No 1{table t} BID Sulfametho xazole-Tri methoprim 800-160 MG metFORMIN HCl ER 500 MG metFORMIN HCl ER 500 MG No metFORMIN HCl ER 500 MG Venlafaxine HCl ER 150 MG Venlafaxine HCl ER 150 MG No QD Venlafaxin e HCl ER 150 MG Linzess 145 mcg Linzess 145 mcg No 1{capsu le} QD Linzess 145 mcg Furosemide 20 MG Furosemide 20 MG No 1{table t} QD Furosemide 20 MG ProAir HFA 108 (90 Base) MCG/ACT ProAir HFA 108 (90 Base) MCG/ACT No 2{puffs _as_nee ded} QID ProAir HFA 108 (90 Base) MCG/ACT Synthroid 25 MCG Synthroid 25 MCG No QD Synthroid 25 MCG NexIUM 40 MG NexIUM 40 MG No NexIUM 40 MG Venlafaxine HCl ER 150 MG Venlafaxine HCl ER 150 MG No Venlafaxin e HCl ER 150 MG Ondansetron HCl 4 MG Ondansetron HCl 4 MG No 1{table t_as_ne eded} Ondansetro n HCl 4 MG Atenolol 100 MG Atenolol 100 MG No Atenolol 100 MG Aspirin 81 MG Aspirin 81 MG No Aspirin 81 MG Zofran 4 MG Zofran 4 MG No 1{table t_as_ne eded} QD Zofran 4 MG Trelegy Ellipta 100-62.5-25 MCG/INH Trelegy Ellipta 100-62.5-25 MCG/INH No 1{puff} QD Trelegy Ellipta 100-62.5-2 5 MCG/INH Diclofenac Sodium 75 MG Diclofenac Sodium 75 MG No 1{table t_as_ne eded} BID Diclofenac Sodium 75 MG Levothyroxi ne Sodium 50 MCG Levothyroxi ne Sodium 50 MCG No Levothyrox ine Sodium 50 MCG Spironolact one 25 MG Spironolact one 25 MG No 1{table t} QD Spironolac tone 25 MG Vitamin D3 1.25 MG (79997 UT) Vitamin D3 1.25 MG (15436 UT) No Vitamin D3 1.25 MG (76971 UT) Simvastatin 40 MG Simvastatin 40 MG No 1{table t_in_th e_eveni ng} QD Simvastati n 40 MG HYDROcodone -Acetaminop hen 5-325 MG HYDROcodone -Acetaminop hen 5-325 MG No 1{table t} QD HYDROcodon e-Acetamin ophen 5-325 MG Venlafaxine HCl ER 150 MG Venlafaxine HCl ER 150 MG No QD Venlafaxin e HCl ER 150 MG Aspirin 81 MG Aspirin 81 MG No Aspirin 81 MG Clopidogrel Bisulfate 75 MG Clopidogrel Bisulfate 75 MG No 1{table t} QD Clopidogre l Bisulfate 75 MG Zofran 4 MG Zofran 4 MG No 1{table t_as_ne eded} TID Zofran 4 MG Furosemide 20 MG Furosemide 20 MG No 1{table t} QD Furosemide 20 MG Aspirin 81 MG Aspirin 81 MG No Aspirin 81 MG Levothyroxi ne Sodium 25 MCG Levothyroxi ne Sodium 25 MCG No Levothyrox ine Sodium 25 MCG Ibuprofen 600 MG Ibuprofen 600 MG No TID Ibuprofen 600 MG Simvastatin 40 MG Simvastatin 40 MG No 1{table t_in_ e_eveni ng} QD Simvastati n 40 MG Tamsulosin HCl 0.4 MG Tamsulosin HCl 0.4 MG No 1{capsu le} QD Tamsulosin HCl 0.4 MG Synthroid 25 MCG Synthroid 25 MCG No QD Synthroid 25 MCG Furosemide 40 MG Furosemide 40 MG No Furosemide 40 MG Clopidogrel Bisulfate 75 MG Clopidogrel Bisulfate 75 MG No 1{table t} QD Clopidogre l Bisulfate 75 MG Orphenadrin e Citrate ER 100 MG Orphenadrin e Citrate ER 100 MG No 1{table t} BID Orphenadri ne Citrate ER 100 MG Alfuzosin HCl ER 10 MG Alfuzosin HCl ER 10 MG No Alfuzosin HCl ER 10 MG ProAir HFA 108 (90 Base) MCG/ACT ProAir HFA 108 (90 Base) MCG/ACT No 2{puffs _as_nee ded} QID ProAir HFA 108 (90 Base) MCG/ACT Sulfamethox azole-Trime thoprim 800-160 MG Sulfamethox azole-Trime thoprim 800-160 MG No 1{table t} BID Sulfametho xazole-Tri methoprim 800-160 MG metFORMIN HCl ER 500 MG metFORMIN HCl ER 500 MG No metFORMIN HCl ER 500 MG Venlafaxine HCl ER 150 MG Venlafaxine HCl ER 150 MG No QD Venlafaxin e HCl ER 150 MG Linzess 145 mcg Linzess 145 mcg No 1{capsu le} QD Linzess 145 mcg Furosemide 20 MG Furosemide 20 MG No 1{table t} QD Furosemide 20 MG Simvastatin 40 MG Simvastatin 40 MG No 1{table t_in_th e_eveni ng} QD Simvastati n 40 MG Synthroid 25 MCG Synthroid 25 MCG No QD Synthroid 25 MCG NexIUM 40 MG NexIUM 40 MG No NexIUM 40 MG Venlafaxine HCl ER 150 MG Venlafaxine HCl ER 150 MG No Venlafaxin e HCl ER 150 MG Ondansetron HCl 4 MG Ondansetron HCl 4 MG No 1{table t_as_ne eded} Ondansetro n HCl 4 MG Atenolol 100 MG Atenolol 100 MG No Atenolol 100 MG Aspirin 81 MG Aspirin 81 MG No Aspirin 81 MG Zofran 4 MG Zofran 4 MG No 1{table t_as_ne eded} QD Zofran 4 MG Trelegy Ellipta 100-62.5-25 MCG/INH Trelegy Ellipta 100-62.5-25 MCG/INH No 1{puff} QD Trelegy Ellipta 100-62.5-2 5 MCG/INH Diclofenac Sodium 75 MG Diclofenac Sodium 75 MG No 1{table t_as_ne eded} BID Diclofenac Sodium 75 MG Spironolact one 25 MG Spironolact one 25 MG No 1{table t} QD Spironolac tone 25 MG Spironolact one 25 MG Spironolact one 25 MG No 1{table t} QD Spironolac tone 25 MG Vitamin D3 1.25 MG (06964 UT) Vitamin D3 1.25 MG (58898 UT) No Vitamin D3 1.25 MG (59412 UT) Simvastatin 40 MG Simvastatin 40 MG No 1{table t_in_ e_eveni ng} QD Simvastati n 40 MG HYDROcodone -Acetaminop hen 5-325 MG HYDROcodone -Acetaminop hen 5-325 MG No 1{table t} QD HYDROcodon e-Acetamin ophen 5-325 MG Atenolol 100 MG Atenolol 100 MG No Atenolol 100 MG Hydrocodone -Acetaminop hen 5-325 MG Hydrocodone -Acetaminop hen 5-325 MG No 1{table t_as_ne eded} QID Hydrocodon e-Acetamin ophen 5-325 MG Vitamin D3 73084 UNIT Vitamin D3 65158 UNIT No 1{capsu le} Vitamin D3 93518 UNIT Gabapentin 100 MG Gabapentin 100 MG No Gabapentin 100 MG Simvastatin 40 MG Simvastatin 40 MG No 1{table t_in_th e_eveni ng} QD Simvastati n 40 MG Tamsulosin HCl 0.4 MG Tamsulosin HCl 0.4 MG No 1{capsu le} QD Tamsulosin HCl 0.4 MG Zofran 4 MG Zofran 4 MG No 1{table t_as_ne eded} QD Zofran 4 MG Atenolol 100 MG Atenolol 100 MG No Atenolol 100 MG Clopidogrel Bisulfate 75 MG Clopidogrel Bisulfate 75 MG No 1{table t} QD Clopidogre l Bisulfate 75 MG Orphenadrin e Citrate ER 100 MG Orphenadrin e Citrate ER 100 MG No 1{table t} BID Orphenadri ne Citrate ER 100 MG Levothyroxi ne Sodium 25 MCG Levothyroxi ne Sodium 25 MCG No Levothyrox ine Sodium 25 MCG Ibuprofen 600 MG Ibuprofen 600 MG No TID Ibuprofen 600 MG Sulfamethox azole-Trime thoprim 800-160 MG Sulfamethox azole-Trime thoprim 800-160 MG No 1{table t} BID Sulfametho xazole-Tri methoprim 800-160 MG Furosemide 40 MG Furosemide 40 MG No Furosemide 40 MG Alfuzosin HCl ER 10 MG Alfuzosin HCl ER 10 MG No Alfuzosin HCl ER 10 MG Linzess 145 mcg Linzess 145 mcg No 1{capsu le} QD Linzess 145 mcg Trelegy Ellipta 100-62.5-25 MCG/INH Trelegy Ellipta 100-62.5-25 MCG/INH No 1{puff} QD Trelegy Ellipta 100-62.5-2 5 MCG/INH Diclofenac Sodium 75 MG Diclofenac Sodium 75 MG No 1{table t_as_ne eded} BID Diclofenac Sodium 75 MG Venlafaxine HCl ER 150 MG Venlafaxine HCl ER 150 MG No Venlafaxin e HCl ER 150 MG Ondansetron HCl 4 MG Ondansetron HCl 4 MG No 1{table t_as_ne eded} Ondansetro n HCl 4 MG Aspirin 81 MG Aspirin 81 MG No Aspirin 81 MG Venlafaxine HCl ER 150 MG Venlafaxine HCl ER 150 MG No QD Venlafaxin e HCl ER 150 MG ProAir HFA 108 (90 Base) MCG/ACT ProAir HFA 108 (90 Base) MCG/ACT No 2{puffs _as_nee ded} QID ProAir HFA 108 (90 Base) MCG/ACT Synthroid 25 MCG Synthroid 25 MCG No QD Synthroid 25 MCG Furosemide 20 MG Furosemide 20 MG No 1{table t} QD Furosemide 20 MG NexIUM 40 MG NexIUM 40 MG No NexIUM 40 MG Vitamin D3 1.25 MG (21054 UT) Vitamin D3 1.25 MG (24527 UT) No Vitamin D3 1.25 MG (01582 UT) Simvastatin 40 MG Simvastatin 40 MG No 1{table t_in e_eveni ng} QD Simvastati n 40 MG Spironolact one 25 MG Spironolact one 25 MG No 1{table t} QD Spironolac tone 25 MG HYDROcodone -Acetaminop hen 5-325 MG HYDROcodone -Acetaminop hen 5-325 MG No 1{table t} QD HYDROcodon e-Acetamin ophen 5-325 MG metFORMIN HCl ER 500 MG metFORMIN HCl ER 500 MG No metFORMIN HCl ER 500 MG Simvastatin 40 MG Simvastatin 40 MG No 1{table t_in e_eveni ng} QD Simvastati n 40 MG Tamsulosin HCl 0.4 MG Tamsulosin HCl 0.4 MG No 1{capsu le} QD Tamsulosin HCl 0.4 MG Zofran 4 MG Zofran 4 MG No 1{table t_as_ne eded} QD Zofran 4 MG Atenolol 100 MG Atenolol 100 MG No Atenolol 100 MG Clopidogrel Bisulfate 75 MG Clopidogrel Bisulfate 75 MG No 1{table t} QD Clopidogre l Bisulfate 75 MG Orphenadrin e Citrate ER 100 MG Orphenadrin e Citrate ER 100 MG No 1{table t} BID Orphenadri ne Citrate ER 100 MG Levothyroxi ne Sodium 25 MCG Levothyroxi ne Sodium 25 MCG No Levothyrox ine Sodium 25 MCG Ibuprofen 600 MG Ibuprofen 600 MG No TID Ibuprofen 600 MG Sulfamethox azole-Trime thoprim 800-160 MG Sulfamethox azole-Trime thoprim 800-160 MG No 1{table t} BID Sulfametho xazole-Tri methoprim 800-160 MG Furosemide 40 MG Furosemide 40 MG No Furosemide 40 MG Alfuzosin HCl ER 10 MG Alfuzosin HCl ER 10 MG No Alfuzosin HCl ER 10 MG Linzess 145 mcg Linzess 145 mcg No 1{capsu le} QD Linzess 145 mcg Trelegy Ellipta 100-62.5-25 MCG/INH Trelegy Ellipta 100-62.5-25 MCG/INH No 1{puff} QD Trelegy Ellipta 100-62.5-2 5 MCG/INH Diclofenac Sodium 75 MG Diclofenac Sodium 75 MG No 1{table t_as_ne eded} BID Diclofenac Sodium 75 MG Venlafaxine HCl ER 150 MG Venlafaxine HCl ER 150 MG No Venlafaxin e HCl ER 150 MG Ondansetron HCl 4 MG Ondansetron HCl 4 MG No 1{table t_as_ne eded} Ondansetro n HCl 4 MG Aspirin 81 MG Aspirin 81 MG No Aspirin 81 MG Venlafaxine HCl ER 150 MG Venlafaxine HCl ER 150 MG No QD Venlafaxin e HCl ER 150 MG ProAir HFA 108 (90 Base) MCG/ACT ProAir HFA 108 (90 Base) MCG/ACT No 2{puffs _as_nee ded} QID ProAir HFA 108 (90 Base) MCG/ACT Synthroid 25 MCG Synthroid 25 MCG No QD Synthroid 25 MCG Furosemide 20 MG Furosemide 20 MG No 1{table t} QD Furosemide 20 MG NexIUM 40 MG NexIUM 40 MG No NexIUM 40 MG Vitamin D3 1.25 MG (92504 UT) Vitamin D3 1.25 MG (03019 UT) No Vitamin D3 1.25 MG (54119 UT) Simvastatin 40 MG Simvastatin 40 MG No 1{table t_in_ e_eveni ng} QD Simvastati n 40 MG Spironolact one 25 MG Spironolact one 25 MG No 1{table t} QD Spironolac tone 25 MG HYDROcodone -Acetaminop hen 5-325 MG HYDROcodone -Acetaminop hen 5-325 MG No 1{table t} QD HYDROcodon e-Acetamin ophen 5-325 MG metFORMIN HCl ER 500 MG metFORMIN HCl ER 500 MG No metFORMIN HCl ER 500 MG Levothyroxi ne Sodium 25 MCG Levothyroxi ne Sodium 25 MCG No Levothyrox ine Sodium 25 MCG Tamsulosin HCl 0.4 MG Tamsulosin HCl 0.4 MG No 1{capsu le} QD Tamsulosin HCl 0.4 MG Zofran 4 MG Zofran 4 MG No 1{table t_as_ne eded} QD Zofran 4 MG Atenolol 100 MG Atenolol 100 MG No Atenolol 100 MG Clopidogrel Bisulfate 75 MG Clopidogrel Bisulfate 75 MG No 1{table t} QD Clopidogre l Bisulfate 75 MG Orphenadrin e Citrate ER 100 MG Orphenadrin e Citrate ER 100 MG No 1{table t} BID Orphenadri ne Citrate ER 100 MG Simvastatin 40 MG Simvastatin 40 MG No 1{table t_in_th e_eveni ng} QD Simvastati n 40 MG Ibuprofen 600 MG Ibuprofen 600 MG No TID Ibuprofen 600 MG Sulfamethox azole-Trime thoprim 800-160 MG Sulfamethox azole-Trime thoprim 800-160 MG No 1{table t} BID Sulfametho xazole-Tri methoprim 800-160 MG Furosemide 40 MG Furosemide 40 MG No Furosemide 40 MG Alfuzosin HCl ER 10 MG Alfuzosin HCl ER 10 MG No Alfuzosin HCl ER 10 MG Linzess 145 mcg Linzess 145 mcg No 1{capsu le} QD Linzess 145 mcg Trelegy Ellipta 100-62.5-25 MCG/INH Trelegy Ellipta 100-62.5-25 MCG/INH No 1{puff} QD Trelegy Ellipta 100-62.5-2 5 MCG/INH Diclofenac Sodium 75 MG Diclofenac Sodium 75 MG No 1{table t_as_ne eded} BID Diclofenac Sodium 75 MG Venlafaxine HCl ER 150 MG Venlafaxine HCl ER 150 MG No Venlafaxin e HCl ER 150 MG Ondansetron HCl 4 MG Ondansetron HCl 4 MG No 1{table t_as_ne eded} Ondansetro n HCl 4 MG Aspirin 81 MG Aspirin 81 MG No Aspirin 81 MG Venlafaxine HCl ER 150 MG Venlafaxine HCl ER 150 MG No QD Venlafaxin e HCl ER 150 MG ProAir HFA 108 (90 Base) MCG/ACT ProAir HFA 108 (90 Base) MCG/ACT No 2{puffs _as_nee ded} QID ProAir HFA 108 (90 Base) MCG/ACT Synthroid 25 MCG Synthroid 25 MCG No QD Synthroid 25 MCG Furosemide 20 MG Furosemide 20 MG No 1{table t} QD Furosemide 20 MG NexIUM 40 MG NexIUM 40 MG No NexIUM 40 MG Vitamin D3 1.25 MG ( UT) Vitamin D3 1.25 MG ( UT) No Vitamin D3 1.25 MG ( UT) Simvastatin 40 MG Simvastatin 40 MG No 1{table t_in_th e_eveni ng} QD Simvastati n 40 MG Spironolact one 25 MG Spironolact one 25 MG No 1{table t} QD Spironolac tone 25 MG HYDROcodone -Acetaminop hen 5-325 MG HYDROcodone -Acetaminop hen 5-325 MG No 1{table t} QD HYDROcodon e-Acetamin ophen 5-325 MG metFORMIN HCl ER 500 MG metFORMIN HCl ER 500 MG No metFORMIN HCl ER 500 MG Hydrocodone -Acetaminop hen 5-325 MG Hydrocodone -Acetaminop hen 5-325 MG No 1{table t} QD Hydrocodon e-Acetamin ophen 5-325 MG Nexium 40 MG Nexium 40 MG No Nexium 40 MG Aspirin Low Dose 81 MG Aspirin Low Dose 81 MG No Aspirin Low Dose 81 MG Trelegy Ellipta 100-62.5-25 MCG/INH Trelegy Ellipta 100-62.5-25 MCG/INH No 1{puff} QD Trelegy Ellipta 100-62.5-2 5 MCG/INH Linzess 145 mcg Linzess 145 mcg No 1{capsu le} QD Linzess 145 mcg Atenolol 100 MG Atenolol 100 MG No QD Atenolol 100 MG ProAir HFA 108 (90 Base) MCG/ACT ProAir HFA 108 (90 Base) MCG/ACT No 2{puffs _as_nee ded} QID ProAir HFA 108 (90 Base) MCG/ACT Levothyroxi ne Sodium 50 MCG Levothyroxi ne Sodium 50 MCG No Levothyrox ine Sodium 50 MCG Venlafaxine HCl ER 150 MG Venlafaxine HCl ER 150 MG No QD Venlafaxin e HCl ER 150 MG Aspirin 81 MG Aspirin 81 MG No Aspirin 81 MG Clopidogrel Bisulfate 75 MG Clopidogrel Bisulfate 75 MG No 1{table t} QD Clopidogre l Bisulfate 75 MG Zofran 4 MG Zofran 4 MG No 1{table t_as_ne eded} TID Zofran 4 MG Furosemide 20 MG Furosemide 20 MG No 1{table t} QD Furosemide 20 MG Aspirin 81 MG Aspirin 81 MG No Aspirin 81 MG Synthroid 25 MCG Synthroid 25 MCG No QD Synthroid 25 MCG Simvastatin 40 MG Simvastatin 40 MG No 1{table t_in_th e_eveni ng} QD Simvastati n 40 MG Spironolact one 25 MG Spironolact one 25 MG No 1{table t} QD Spironolac tone 25 MG Atenolol 100 MG Atenolol 100 MG No Atenolol 100 MG Hydrocodone -Acetaminop hen 5-325 MG Hydrocodone -Acetaminop hen 5-325 MG No 1{table t_as_ne eded} QID Hydrocodon e-Acetamin ophen 5-325 MG Vitamin D3 60503 UNIT Vitamin D3 19333 UNIT No 1{capsu le} Vitamin D3 22696 UNIT Gabapentin 100 MG Gabapentin 100 MG No Gabapentin 100 MG Hydrocodone -Acetaminop hen 5-325 MG Hydrocodone -Acetaminop hen 5-325 MG No 1{table t} QD Hydrocodon e-Acetamin ophen 5-325 MG Nexium 40 MG Nexium 40 MG No Nexium 40 MG Aspirin Low Dose 81 MG Aspirin Low Dose 81 MG No Aspirin Low Dose 81 MG Trelegy Ellipta 100-62.5-25 MCG/INH Trelegy Ellipta 100-62.5-25 MCG/INH No 1{puff} QD Trelegy Ellipta 100-62.5-2 5 MCG/INH Linzess 145 mcg Linzess 145 mcg No 1{capsu le} QD Linzess 145 mcg Atenolol 100 MG Atenolol 100 MG No QD Atenolol 100 MG ProAir HFA 108 (90 Base) MCG/ACT ProAir HFA 108 (90 Base) MCG/ACT No 2{puffs _as_nee ded} QID ProAir HFA 108 (90 Base) MCG/ACT Levothyroxi ne Sodium 50 MCG Levothyroxi ne Sodium 50 MCG No Levothyrox ine Sodium 50 MCG Venlafaxine HCl ER 150 MG Venlafaxine HCl ER 150 MG No QD Venlafaxin e HCl ER 150 MG Aspirin 81 MG Aspirin 81 MG No Aspirin 81 MG Clopidogrel Bisulfate 75 MG Clopidogrel Bisulfate 75 MG No 1{table t} QD Clopidogre l Bisulfate 75 MG Zofran 4 MG Zofran 4 MG No 1{table t_as_ne eded} TID Zofran 4 MG Furosemide 20 MG Furosemide 20 MG No 1{table t} QD Furosemide 20 MG Aspirin 81 MG Aspirin 81 MG No Aspirin 81 MG Synthroid 25 MCG Synthroid 25 MCG No QD Synthroid 25 MCG Simvastatin 40 MG Simvastatin 40 MG No 1{table t_in_th e_eveni ng} QD Simvastati n 40 MG Spironolact one 25 MG Spironolact one 25 MG No 1{table t} QD Spironolac tone 25 MG Atenolol 100 MG Atenolol 100 MG No Atenolol 100 MG Hydrocodone -Acetaminop hen 5-325 MG Hydrocodone -Acetaminop hen 5-325 MG No 1{table t_as_ne eded} QID Hydrocodon e-Acetamin ophen 5-325 MG Vitamin D3 88379 UNIT Vitamin D3 30892 UNIT No 1{capsu le} Vitamin D3 22836 UNIT Gabapentin 100 MG Gabapentin 100 MG No Gabapentin 100 MG Hydrocodone -Acetaminop hen 5-325 MG Hydrocodone -Acetaminop hen 5-325 MG No 1{table t} QD Hydrocodon e-Acetamin ophen 5-325 MG Gabapentin 100 MG Gabapentin 100 MG No Gabapentin 100 MG Aspirin Low Dose 81 MG Aspirin Low Dose 81 MG No Aspirin Low Dose 81 MG Clopidogrel Bisulfate 75 MG Clopidogrel Bisulfate 75 MG No 1{table t} QD Clopidogre l Bisulfate 75 MG Linzess 145 mcg Linzess 145 mcg No 1{capsu le} QD Linzess 145 mcg Aspirin 81 MG Aspirin 81 MG No Aspirin 81 MG Simvastatin 40 MG Simvastatin 40 MG No 1{table t_in_ e_eveni ng} QD Simvastati n 40 MG Furosemide 20 MG Furosemide 20 MG No 1{table t} QD Furosemide 20 MG Levothyroxi ne Sodium 50 MCG Levothyroxi ne Sodium 50 MCG No Levothyrox ine Sodium 50 MCG Aspirin 81 MG Aspirin 81 MG No Aspirin 81 MG Venlafaxine HCl ER 150 MG Venlafaxine HCl ER 150 MG No QD Venlafaxin e HCl ER 150 MG ProAir HFA 108 (90 Base) MCG/ACT ProAir HFA 108 (90 Base) MCG/ACT No 2{puffs _as_nee ded} QID ProAir HFA 108 (90 Base) MCG/ACT Nexium 40 MG Nexium 40 MG No Nexium 40 MG Zofran 4 MG Zofran 4 MG No 1{table t_as_ne eded} TID Zofran 4 MG Venlafaxine HCl ER 75 MG Venlafaxine HCl ER 75 MG No 1{capsu le_with _food} QD Venlafaxin e HCl ER 75 MG Synthroid 25 MCG Synthroid 25 MCG No QD Synthroid 25 MCG Atenolol 100 MG Atenolol 100 MG No Atenolol 100 MG Vitamin D3 81898 UNIT Vitamin D3 09695 UNIT No 1{capsu le} Vitamin D3 32914 UNIT Hydrocodone -Acetaminop hen 5-325 MG Hydrocodone -Acetaminop hen 5-325 MG No 1{table t_as_ne eded} QID Hydrocodon e-Acetamin ophen 5-325 MG Trelegy Ellipta 100-62.5-25 MCG/INH Trelegy Ellipta 100-62.5-25 MCG/INH No 1{puff} QD Trelegy Ellipta 100-62.5-2 5 MCG/INH Spironolact one 25 MG Spironolact one 25 MG No 1{table t} QD Spironolac tone 25 MG Synthroid 25 MCG Synthroid 25 MCG No QD Synthroid 25 MCG Aspirin Low Dose 81 MG Aspirin Low Dose 81 MG No Aspirin Low Dose 81 MG Venlafaxine HCl ER 75 MG Venlafaxine HCl ER 75 MG No 1{capsu le_with _food} QD Venlafaxin e HCl ER 75 MG Aspirin 81 MG Aspirin 81 MG No Aspirin 81 MG Furosemide 20 MG Furosemide 20 MG No 1{table t} QD Furosemide 20 MG Hydrocodone -Acetaminop hen 5-325 MG Hydrocodone -Acetaminop hen 5-325 MG No 1{table t} QD Hydrocodon e-Acetamin ophen 5-325 MG Simvastatin 40 MG Simvastatin 40 MG No 1{table t_in_th e_eveni ng} QD Simvastati n 40 MG Zofran 4 MG Zofran 4 MG No 1{table t_as_ne eded} QD Zofran 4 MG Clopidogrel Bisulfate 75 MG Clopidogrel Bisulfate 75 MG No 1{table t} QD Clopidogre l Bisulfate 75 MG Gabapentin 100 MG Gabapentin 100 MG No Gabapentin 100 MG Atenolol 100 MG Atenolol 100 MG No Atenolol 100 MG Spironolact one 25 MG Spironolact one 25 MG No 1{table t} QD Spironolac tone 25 MG Trelegy Ellipta 100-62.5-25 MCG/INH Trelegy Ellipta 100-62.5-25 MCG/INH No 1{puff} QD Trelegy Ellipta 100-62.5-2 5 MCG/INH Levothyroxi ne Sodium 50 MCG Levothyroxi ne Sodium 50 MCG No Levothyrox ine Sodium 50 MCG Hydrocodone -Acetaminop hen 5-325 MG Hydrocodone -Acetaminop hen 5-325 MG No 1{table t_as_ne eded} QID Hydrocodon e-Acetamin ophen 5-325 MG Nexium 40 MG Nexium 40 MG No Nexium 40 MG Venlafaxine HCl ER 150 MG Venlafaxine HCl ER 150 MG No QD Venlafaxin e HCl ER 150 MG Vitamin D3 59494 UNIT Vitamin D3 74629 UNIT No 1{capsu le} Vitamin D3 23553 UNIT ProAir HFA 108 (90 Base) MCG/ACT ProAir HFA 108 (90 Base) MCG/ACT No 2{puffs _as_nee ded} QID ProAir HFA 108 (90 Base) MCG/ACT Linzess 145 mcg Linzess 145 mcg No 1{capsu le} QD Linzess 145 mcg Aspirin 81 MG Aspirin 81 MG No Aspirin 81 MG Synthroid 25 MCG Synthroid 25 MCG No QD Synthroid 25 MCG Aspirin Low Dose 81 MG Aspirin Low Dose 81 MG No Aspirin Low Dose 81 MG Venlafaxine HCl ER 75 MG Venlafaxine HCl ER 75 MG No 1{capsu le_with _food} QD Venlafaxin e HCl ER 75 MG Aspirin 81 MG Aspirin 81 MG No Aspirin 81 MG Furosemide 20 MG Furosemide 20 MG No 1{table t} QD Furosemide 20 MG Hydrocodone -Acetaminop hen 5-325 MG Hydrocodone -Acetaminop hen 5-325 MG No 1{table t} QD Hydrocodon e-Acetamin ophen 5-325 MG Simvastatin 40 MG Simvastatin 40 MG No 1{table t_in_th e_eveni ng} QD Simvastati n 40 MG Zofran 4 MG Zofran 4 MG No 1{table t_as_ne eded} QD Zofran 4 MG Clopidogrel Bisulfate 75 MG Clopidogrel Bisulfate 75 MG No 1{table t} QD Clopidogre l Bisulfate 75 MG Gabapentin 100 MG Gabapentin 100 MG No Gabapentin 100 MG Atenolol 100 MG Atenolol 100 MG No Atenolol 100 MG Spironolact one 25 MG Spironolact one 25 MG No 1{table t} QD Spironolac tone 25 MG Trelegy Ellipta 100-62.5-25 MCG/INH Trelegy Ellipta 100-62.5-25 MCG/INH No 1{puff} QD Trelegy Ellipta 100-62.5-2 5 MCG/INH Levothyroxi ne Sodium 50 MCG Levothyroxi ne Sodium 50 MCG No Levothyrox ine Sodium 50 MCG Hydrocodone -Acetaminop hen 5-325 MG Hydrocodone -Acetaminop hen 5-325 MG No 1{table t_as_ne eded} QID Hydrocodon e-Acetamin ophen 5-325 MG Nexium 40 MG Nexium 40 MG No Nexium 40 MG Venlafaxine HCl ER 150 MG Venlafaxine HCl ER 150 MG No QD Venlafaxin e HCl ER 150 MG Vitamin D3 70229 UNIT Vitamin D3 83418 UNIT No 1{capsu le} Vitamin D3 33434 UNIT ProAir HFA 108 (90 Base) MCG/ACT ProAir HFA 108 (90 Base) MCG/ACT No 2{puffs _as_nee ded} QID ProAir HFA 108 (90 Base) MCG/ACT Linzess 145 mcg Linzess 145 mcg No 1{capsu le} QD Linzess 145 mcg Aspirin 81 MG Aspirin 81 MG No Aspirin 81 MG Synthroid 25 MCG Synthroid 25 MCG No QD Synthroid 25 MCG Aspirin Low Dose 81 MG Aspirin Low Dose 81 MG No Aspirin Low Dose 81 MG Venlafaxine HCl ER 75 MG Venlafaxine HCl ER 75 MG No 1{capsu le_with _food} QD Venlafaxin e HCl ER 75 MG Aspirin 81 MG Aspirin 81 MG No Aspirin 81 MG Furosemide 20 MG Furosemide 20 MG No 1{table t} QD Furosemide 20 MG Hydrocodone -Acetaminop hen 5-325 MG Hydrocodone -Acetaminop hen 5-325 MG No 1{table t} QD Hydrocodon e-Acetamin ophen 5-325 MG Simvastatin 40 MG Simvastatin 40 MG No 1{table t_in_th e_eveni ng} QD Simvastati n 40 MG Zofran 4 MG Zofran 4 MG No 1{table t_as_ne eded} QD Zofran 4 MG Clopidogrel Bisulfate 75 MG Clopidogrel Bisulfate 75 MG No 1{table t} QD Clopidogre l Bisulfate 75 MG Gabapentin 100 MG Gabapentin 100 MG No Gabapentin 100 MG Venlafaxine HCl ER 150 MG Venlafaxine HCl ER 150 MG No QD Venlafaxin e HCl ER 150 MG Spironolact one 25 MG Spironolact one 25 MG No 1{table t} QD Spironolac tone 25 MG Trelegy Ellipta 100-62.5-25 MCG/INH Trelegy Ellipta 100-62.5-25 MCG/INH No 1{puff} QD Trelegy Ellipta 100-62.5-2 5 MCG/INH Levothyroxi ne Sodium 50 MCG Levothyroxi ne Sodium 50 MCG No Levothyrox ine Sodium 50 MCG Hydrocodone -Acetaminop hen 5-325 MG Hydrocodone -Acetaminop hen 5-325 MG No 1{table t_as_ne eded} QID Hydrocodon e-Acetamin ophen 5-325 MG Nexium 40 MG Nexium 40 MG No Nexium 40 MG Atenolol 100 MG Atenolol 100 MG No Atenolol 100 MG Vitamin D3 89139 UNIT Vitamin D3 94688 UNIT No 1{capsu le} Vitamin D3 81623 UNIT ProAir HFA 108 (90 Base) MCG/ACT ProAir HFA 108 (90 Base) MCG/ACT No 2{puffs _as_nee ded} QID ProAir HFA 108 (90 Base) MCG/ACT Linzess 145 mcg Linzess 145 mcg No 1{capsu le} QD Linzess 145 mcg Aspirin 81 MG Aspirin 81 MG No Aspirin 81 MG Synthroid 25 MCG Synthroid 25 MCG No QD Synthroid 25 MCG Aspirin Low Dose 81 MG Aspirin Low Dose 81 MG No Aspirin Low Dose 81 MG Venlafaxine HCl ER 75 MG Venlafaxine HCl ER 75 MG No 1{capsu le_with _food} QD Venlafaxin e HCl ER 75 MG Aspirin 81 MG Aspirin 81 MG No Aspirin 81 MG Furosemide 20 MG Furosemide 20 MG No 1{table t} QD Furosemide 20 MG Hydrocodone -Acetaminop hen 5-325 MG Hydrocodone -Acetaminop hen 5-325 MG No 1{table t} QD Hydrocodon e-Acetamin ophen 5-325 MG Simvastatin 40 MG Simvastatin 40 MG No 1{table t_in_th e_eveni ng} QD Simvastati n 40 MG Zofran 4 MG Zofran 4 MG No 1{table t_as_ne eded} QD Zofran 4 MG Clopidogrel Bisulfate 75 MG Clopidogrel Bisulfate 75 MG No 1{table t} QD Clopidogre l Bisulfate 75 MG Gabapentin 100 MG Gabapentin 100 MG No Gabapentin 100 MG Venlafaxine HCl ER 150 MG Venlafaxine HCl ER 150 MG No QD Venlafaxin e HCl ER 150 MG Spironolact one 25 MG Spironolact one 25 MG No 1{table t} QD Spironolac tone 25 MG Trelegy Ellipta 100-62.5-25 MCG/INH Trelegy Ellipta 100-62.5-25 MCG/INH No 1{puff} QD Trelegy Ellipta 100-62.5-2 5 MCG/INH Levothyroxi ne Sodium 50 MCG Levothyroxi ne Sodium 50 MCG No Levothyrox ine Sodium 50 MCG Hydrocodone -Acetaminop hen 5-325 MG Hydrocodone -Acetaminop hen 5-325 MG No 1{table t_as_ne eded} QID Hydrocodon e-Acetamin ophen 5-325 MG Nexium 40 MG Nexium 40 MG No Nexium 40 MG Atenolol 100 MG Atenolol 100 MG No Atenolol 100 MG Vitamin D3 27143 UNIT Vitamin D3 55262 UNIT No 1{capsu le} Vitamin D3 26773 UNIT ProAir HFA 108 (90 Base) MCG/ACT ProAir HFA 108 (90 Base) MCG/ACT No 2{puffs _as_nee ded} QID ProAir HFA 108 (90 Base) MCG/ACT Linzess 145 mcg Linzess 145 mcg No 1{capsu le} QD Linzess 145 mcg Aspirin 81 MG Aspirin 81 MG No Aspirin 81 MG Atenolol 100 MG Atenolol 100 MG No Atenolol 100 MG ProAir HFA 108 (90 Base) MCG/ACT ProAir HFA 108 (90 Base) MCG/ACT No 2{puffs _as_nee ded} QID ProAir HFA 108 (90 Base) MCG/ACT Venlafaxine HCl ER 75 MG Venlafaxine HCl ER 75 MG No 1{capsu le_with _food} QD Venlafaxin e HCl ER 75 MG Nexium 40 MG Nexium 40 MG No Nexium 40 MG Aspirin Low Dose 81 MG Aspirin Low Dose 81 MG No Aspirin Low Dose 81 MG Zofran 4 MG Zofran 4 MG No 1{table t_as_ne eded} QD Zofran 4 MG Synthroid 25 MCG Synthroid 25 MCG No QD Synthroid 25 MCG Venlafaxine HCl ER 150 MG Venlafaxine HCl ER 150 MG No QD Venlafaxin e HCl ER 150 MG Spironolact one 25 MG Spironolact one 25 MG No 1{table t} QD Spironolac tone 25 MG Gabapentin 100 MG Gabapentin 100 MG No Gabapentin 100 MG Atenolol 100 MG Atenolol 100 MG No QD Atenolol 100 MG Hydrocodone -Acetaminop hen 5-325 MG Hydrocodone -Acetaminop hen 5-325 MG No 1{table t} QD Hydrocodon e-Acetamin ophen 5-325 MG Trelegy Ellipta 100-62.5-25 MCG/INH Trelegy Ellipta 100-62.5-25 MCG/INH No 1{puff} QD Trelegy Ellipta 100-62.5-2 5 MCG/INH Vitamin D3 68129 UNIT Vitamin D3 14773 UNIT No 1{capsu le} Vitamin D3 16523 UNIT Linzess 145 mcg Linzess 145 mcg No 1{capsu le} QD Linzess 145 mcg Synthroid 25 MCG Synthroid 25 MCG No QD Synthroid 25 MCG Clopidogrel Bisulfate 75 MG Clopidogrel Bisulfate 75 MG No 1{table t} QD Clopidogre l Bisulfate 75 MG Furosemide 20 MG Furosemide 20 MG No 1{table t} QD Furosemide 20 MG Simvastatin 40 MG Simvastatin 40 MG No 1{table t_in_ e_eveni ng} QD Simvastati n 40 MG Venlafaxine HCl ER 150 MG Venlafaxine HCl ER 150 MG No QD Venlafaxin e HCl ER 150 MG Hydrocodone -Acetaminop hen 5-325 MG Hydrocodone -Acetaminop hen 5-325 MG No 1{table t_as_ne eded} QID Hydrocodon e-Acetamin ophen 5-325 MG Aspirin 81 MG Aspirin 81 MG No Aspirin 81 MG Levothyroxi ne Sodium 50 MCG Levothyroxi ne Sodium 50 MCG No Levothyrox ine Sodium 50 MCG Aspirin 81 MG Aspirin 81 MG No Aspirin 81 MG Aspirin 81 MG Aspirin 81 MG No Aspirin 81 MG Simvastatin 40 MG Simvastatin 40 MG No 1{table t_in_th e_eveni ng} QD Simvastati n 40 MG Clopidogrel Bisulfate 75 MG Clopidogrel Bisulfate 75 MG No 1{table t} QD Clopidogre l Bisulfate 75 MG Vitamin D3 44839 UNIT Vitamin D3 87233 UNIT No 1{capsu le} Vitamin D3 75249 UNIT ProAir HFA 108 (90 Base) MCG/ACT ProAir HFA 108 (90 Base) MCG/ACT No 2{puffs _as_nee ded} QID ProAir HFA 108 (90 Base) MCG/ACT Atenolol 100 MG Atenolol 100 MG No Atenolol 100 MG NexIUM 40 MG NexIUM 40 MG No NexIUM 40 MG HYDROcodone -Acetaminop hen 5-325 MG HYDROcodone -Acetaminop hen 5-325 MG No 1{table t} QD HYDROcodon e-Acetamin ophen 5-325 MG Synthroid 25 MCG Synthroid 25 MCG No QD Synthroid 25 MCG Aspirin 81 MG Aspirin 81 MG No Aspirin 81 MG Linzess 145 mcg Linzess 145 mcg No 1{capsu le} QD Linzess 145 mcg Spironolact one 25 MG Spironolact one 25 MG No 1{table t} QD Spironolac tone 25 MG Aspirin Low Dose 81 MG Aspirin Low Dose 81 MG No Aspirin Low Dose 81 MG Zofran 4 MG Zofran 4 MG No 1{table t_as_ne eded} QD Zofran 4 MG Levothyroxi ne Sodium 50 MCG Levothyroxi ne Sodium 50 MCG No Levothyrox ine Sodium 50 MCG Synthroid 25 MCG Synthroid 25 MCG No QD Synthroid 25 MCG Atenolol 100 MG Atenolol 100 MG No QD Atenolol 100 MG Venlafaxine HCl ER 75 MG Venlafaxine HCl ER 75 MG No 1{capsu le_with _food} QD Venlafaxin e HCl ER 75 MG Venlafaxine HCl ER 150 MG Venlafaxine HCl ER 150 MG No QD Venlafaxin e HCl ER 150 MG Venlafaxine HCl ER 150 MG Venlafaxine HCl ER 150 MG No QD Venlafaxin e HCl ER 150 MG Furosemide 20 MG Furosemide 20 MG No 1{table t} QD Furosemide 20 MG Gabapentin 100 MG Gabapentin 100 MG No Gabapentin 100 MG HYDROcodone -Acetaminop hen 5-325 MG HYDROcodone -Acetaminop hen 5-325 MG No 1{table t_as_ne eded} QID HYDROcodon e-Acetamin ophen 5-325 MG Trelegy Ellipta 100-62.5-25 MCG/INH Trelegy Ellipta 100-62.5-25 MCG/INH No 1{puff} QD Trelegy Ellipta 100-62.5-2 5 MCG/INH Simvastatin 40 MG Simvastatin 40 MG No 1{table t_in_th e_eveni ng} QD Simvastati n 40 MG Venlafaxine HCl ER 75 MG Venlafaxine HCl ER 75 MG No 1{capsu le_with _food} QD Venlafaxin e HCl ER 75 MG Aspirin 81 MG Aspirin 81 MG No Aspirin 81 MG HYDROcodone -Acetaminop hen 5-325 MG HYDROcodone -Acetaminop hen 5-325 MG No 1{table t_as_ne eded} QID HYDROcodon e-Acetamin ophen 5-325 MG Linzess 145 mcg Linzess 145 mcg No 1{capsu le} QD Linzess 145 mcg Venlafaxine HCl ER 150 MG Venlafaxine HCl ER 150 MG No QD Venlafaxin e HCl ER 150 MG Gabapentin 100 MG Gabapentin 100 MG No Gabapentin 100 MG Synthroid 25 MCG Synthroid 25 MCG No QD Synthroid 25 MCG HYDROcodone -Acetaminop hen 5-325 MG HYDROcodone -Acetaminop hen 5-325 MG No 1{table t} QD HYDROcodon e-Acetamin ophen 5-325 MG ProAir HFA 108 (90 Base) MCG/ACT ProAir HFA 108 (90 Base) MCG/ACT No 2{puffs _as_nee ded} QID ProAir HFA 108 (90 Base) MCG/ACT Clopidogrel Bisulfate 75 MG Clopidogrel Bisulfate 75 MG No 1{table t} QD Clopidogre l Bisulfate 75 MG Synthroid 25 MCG Synthroid 25 MCG No QD Synthroid 25 MCG Furosemide 20 MG Furosemide 20 MG No 1{table t} QD Furosemide 20 MG NexIUM 40 MG NexIUM 40 MG No NexIUM 40 MG Zofran 4 MG Zofran 4 MG No 1{table t_as_ne eded} QD Zofran 4 MG Atenolol 100 MG Atenolol 100 MG No Atenolol 100 MG Trelegy Ellipta 100-62.5-25 MCG/INH Trelegy Ellipta 100-62.5-25 MCG/INH No 1{puff} QD Trelegy Ellipta 100-62.5-2 5 MCG/INH Aspirin 81 MG Aspirin 81 MG No Aspirin 81 MG Spironolact one 25 MG Spironolact one 25 MG No 1{table t} QD Spironolac tone 25 MG Levothyroxi ne Sodium 50 MCG Levothyroxi ne Sodium 50 MCG No Levothyrox ine Sodium 50 MCG Venlafaxine HCl ER 150 MG Venlafaxine HCl ER 150 MG No QD Venlafaxin e HCl ER 150 MG Aspirin Low Dose 81 MG Aspirin Low Dose 81 MG No Aspirin Low Dose 81 MG Vitamin D3 42214 UNIT Vitamin D3 66579 UNIT No 1{capsu le} Vitamin D3 95029 UNIT Aspirin 81 MG Aspirin 81 MG No Aspirin 81 MG Immunizations Ordered Immunization Name Filled Immunization Name Date Status Comments Source Prevnar 20 (PCV20) Prevnar 20 (PCV20) 2022-08-08 16:18:00 Completed [facility] FLUZONE HIGH DOSE OVER 65 FLUZONE HIGH DOSE OVER 65 2022-04-29 14:36:00 Completed [facility] FLUZONE HIGH DOSE OVER 65 FLUZONE HIGH DOSE OVER 65 2022-04-29 14:36:00 Completed [facility] FLUZONE HIGH DOSE OVER 65 FLUZONE HIGH DOSE OVER 65 2022-04-29 14:36:00 Completed [facility] FLUZONE HIGH DOSE OVER 65 FLUZONE HIGH DOSE OVER 65 2022-04-29 14:36:00 Completed [facility] FLUZONE HIGH DOSE OVER 65 FLUZONE HIGH DOSE OVER 65 2022-04-29 14:36:00 Completed [facility] FLUZONE HIGH DOSE OVER 65 FLUZONE HIGH DOSE OVER 65 2022-04-29 14:36:00 Completed [facility] FLUZONE HIGH DOSE OVER 65 FLUZONE HIGH DOSE OVER 65 2022-04-29 14:36:00 Completed [facility] FLUZONE HIGH DOSE OVER 65 FLUZONE HIGH DOSE OVER 65 2022-04-29 14:36:00 Completed [facility] Vitamin B12 (Cyanocobalamin) Vitamin B12 (Cyanocobalamin) 2021-03-23 09:40:00 Completed [facility] Vitamin B12 (Cyanocobalamin) Vitamin B12 (Cyanocobalamin) 2021-03-23 09:40:00 Completed [facility] Vitamin B12 (Cyanocobalamin) Vitamin B12 (Cyanocobalamin) 2021-02-15 08:57:00 Completed [facility] Vitamin B12 (Cyanocobalamin) Vitamin B12 (Cyanocobalamin) 2021-02-15 08:57:00 Completed [facility] Vitamin B12 (Cyanocobalamin) Vitamin B12 (Cyanocobalamin) 2021-02-15 08:57:00 Completed [facility] Vitamin B12 (Cyanocobalamin) Vitamin B12 (Cyanocobalamin) 2021-02-15 08:57:00 Completed [facility] Vitamin B12 (Cyanocobalamin) Vitamin B12 (Cyanocobalamin) 2021-02-15 08:57:00 Completed [facility] Vitamin B12 (Cyanocobalamin) Vitamin B12 (Cyanocobalamin) 2020-12-21 14:20:00 Completed [facility] Vitamin B12 (Cyanocobalamin) Vitamin B12 (Cyanocobalamin) 2020-12-21 14:20:00 Completed [facility] Vitamin B12 (Cyanocobalamin) Vitamin B12 (Cyanocobalamin) 2020-12-21 14:20:00 Completed [facility] Vitamin B12 (Cyanocobalamin) Vitamin B12 (Cyanocobalamin) 2020-12-21 14:20:00 Completed [facility] Vitamin B12 (Cyanocobalamin) Vitamin B12 (Cyanocobalamin) 2020-12-21 14:20:00 Completed [facility] Vitamin B12 (Cyanocobalamin) Vitamin B12 (Cyanocobalamin) 2020-12-21 14:20:00 Completed [facility] Vitamin B12 (Cyanocobalamin) Vitamin B12 (Cyanocobalamin) 2020-12-21 14:20:00 Completed [facility] Vitamin B12 (Cyanocobalamin) Vitamin B12 (Cyanocobalamin) 2020-12-21 14:20:00 Completed [facility] Vitamin B12 (Cyanocobalamin) Vitamin B12 (Cyanocobalamin) 2020-12-21 14:20:00 Completed [facility] Vitamin B12 (Cyanocobalamin) Vitamin B12 (Cyanocobalamin) 2020-12-21 14:20:00 Completed [facility] Vitamin B12 (Cyanocobalamin) Vitamin B12 (Cyanocobalamin) 2020-12-21 14:20:00 Completed [facility] Vitamin B12 (Cyanocobalamin) Vitamin B12 (Cyanocobalamin) 2020-12-21 14:20:00 Completed [facility] Vitamin B12 (Cyanocobalamin) Vitamin B12 (Cyanocobalamin) 2020-12-21 14:20:00 Completed [facility] Vitamin B12 (Cyanocobalamin) Vitamin B12 (Cyanocobalamin) 2020-12-21 14:20:00 Completed [facility] Vitamin B12 (Cyanocobalamin) Vitamin B12 (Cyanocobalamin) 2020-12-21 14:20:00 Completed [facility] Vitamin B12 (Cyanocobalamin) Vitamin B12 (Cyanocobalamin) 2020-12-05 10:29:00 Completed [facility] Vitamin B12 (Cyanocobalamin) Vitamin B12 (Cyanocobalamin) 2020-12-05 10:29:00 Completed [facility] Vitamin B12 (Cyanocobalamin) Vitamin B12 (Cyanocobalamin) 2020-12-05 10:29:00 Completed [facility] Vitamin B12 (Cyanocobalamin) Vitamin B12 (Cyanocobalamin) 2020-12-05 10:29:00 Completed [facility] Vitamin B12 (Cyanocobalamin) Vitamin B12 (Cyanocobalamin) 2020-12-05 10:29:00 Completed [facility] Vitamin B12 (Cyanocobalamin) Vitamin B12 (Cyanocobalamin) 2020-12-05 10:29:00 Completed [facility] Vitamin B12 (Cyanocobalamin) Vitamin B12 (Cyanocobalamin) 2020-12-05 10:29:00 Completed [facility] Vitamin B12 (Cyanocobalamin) Vitamin B12 (Cyanocobalamin) 2020-12-05 10:29:00 Completed [facility] Vitamin B12 (Cyanocobalamin) Vitamin B12 (Cyanocobalamin) 2020-12-05 10:29:00 Completed [facility] Vitamin B12 (Cyanocobalamin) Vitamin B12 (Cyanocobalamin) 2020-12-05 10:29:00 Completed [facility] Vitamin B12 (Cyanocobalamin) Vitamin B12 (Cyanocobalamin) 2020-12-05 10:29:00 Completed [facility] Vitamin B12 (Cyanocobalamin) Vitamin B12 (Cyanocobalamin) 2020-12-05 10:29:00 Completed [facility] Vitamin B12 (Cyanocobalamin) Vitamin B12 (Cyanocobalamin) 2020-12-05 10:29:00 Completed [facility] Vitamin B12 (Cyanocobalamin) Vitamin B12 (Cyanocobalamin) 2020-12-05 10:29:00 Completed [facility] Vitamin B12 (Cyanocobalamin) Vitamin B12 (Cyanocobalamin) 2020-12-05 10:29:00 Completed [facility] Vitamin B12 (Cyanocobalamin) Vitamin B12 (Cyanocobalamin) 2020-12-05 10:29:00 Completed [facility] Vitamin B12 (Cyanocobalamin) Vitamin B12 (Cyanocobalamin) 2020-10-26 16:27:00 Completed [facility] Vitamin B12 (Cyanocobalamin) Vitamin B12 (Cyanocobalamin) 2020-10-26 16:27:00 Completed [facility] Vitamin B12 (Cyanocobalamin) Vitamin B12 (Cyanocobalamin) 2020-10-26 16:27:00 Completed [facility] Vitamin B12 (Cyanocobalamin) Vitamin B12 (Cyanocobalamin) 2020-10-26 16:27:00 Completed [facility] Vitamin B12 (Cyanocobalamin) Vitamin B12 (Cyanocobalamin) 2020-10-26 16:27:00 Completed [facility] Vitamin B12 (Cyanocobalamin) Vitamin B12 (Cyanocobalamin) 2020-10-26 16:27:00 Completed [facility] Vitamin B12 (Cyanocobalamin) Vitamin B12 (Cyanocobalamin) 2020-10-26 16:27:00 Completed [facility] Vitamin B12 (Cyanocobalamin) Vitamin B12 (Cyanocobalamin) 2020-10-26 16:27:00 Completed [facility] Vitamin B12 (Cyanocobalamin) Vitamin B12 (Cyanocobalamin) 2020-10-26 16:27:00 Completed [facility] Vitamin B12 (Cyanocobalamin) Vitamin B12 (Cyanocobalamin) 2020-10-26 16:27:00 Completed [facility] Vitamin B12 (Cyanocobalamin) Vitamin B12 (Cyanocobalamin) 2020-10-26 16:27:00 Completed [facility] Vitamin B12 (Cyanocobalamin) Vitamin B12 (Cyanocobalamin) 2020-10-26 16:27:00 Completed [facility] Vitamin B12 (Cyanocobalamin) Vitamin B12 (Cyanocobalamin) 2020-10-26 16:27:00 Completed [facility] Vitamin B12 (Cyanocobalamin) Vitamin B12 (Cyanocobalamin) 2020-10-26 16:27:00 Completed [facility] Vitamin B12 (Cyanocobalamin) Vitamin B12 (Cyanocobalamin) 2020-10-26 16:27:00 Completed [facility] Vitamin B12 (Cyanocobalamin) Vitamin B12 (Cyanocobalamin) 2020-10-26 16:27:00 Completed [facility] Vitamin B12 (Cyanocobalamin) Vitamin B12 (Cyanocobalamin) 2020-10-26 16:27:00 Completed [facility] Vitamin B12 (Cyanocobalamin) Vitamin B12 (Cyanocobalamin) 2020-10-26 16:27:00 Completed [facility] Vitamin B12 (Cyanocobalamin) Vitamin B12 (Cyanocobalamin) 2020-09-12 10:56:00 Completed [facility] Vitamin B12 (Cyanocobalamin) Vitamin B12 (Cyanocobalamin) 2020-09-12 10:56:00 Completed [facility] Vitamin B12 (Cyanocobalamin) Vitamin B12 (Cyanocobalamin) 2020-09-12 10:56:00 Completed [facility] Vitamin B12 (Cyanocobalamin) Vitamin B12 (Cyanocobalamin) 2020-09-12 10:56:00 Completed [facility] Vitamin B12 (Cyanocobalamin) Vitamin B12 (Cyanocobalamin) 2020-09-12 10:56:00 Completed [facility] Vitamin B12 (Cyanocobalamin) Vitamin B12 (Cyanocobalamin) 2020-09-12 10:56:00 Completed [facility] Vitamin B12 (Cyanocobalamin) Vitamin B12 (Cyanocobalamin) 2020-09-12 10:56:00 Completed [facility] Vitamin B12 (Cyanocobalamin) Vitamin B12 (Cyanocobalamin) 2020-09-12 10:56:00 Completed [facility] Vitamin B12 (Cyanocobalamin) Vitamin B12 (Cyanocobalamin) 2020-09-12 10:56:00 Completed [facility] Vitamin B12 (Cyanocobalamin) Vitamin B12 (Cyanocobalamin) 2020-09-12 10:56:00 Completed [facility] Vitamin B12 (Cyanocobalamin) Vitamin B12 (Cyanocobalamin) 2020-09-12 10:56:00 Completed [facility] Vitamin B12 (Cyanocobalamin) Vitamin B12 (Cyanocobalamin) 2020-09-12 10:56:00 Completed [facility] Vitamin B12 (Cyanocobalamin) Vitamin B12 (Cyanocobalamin) 2020-09-12 10:56:00 Completed [facility] Vitamin B12 (Cyanocobalamin) Vitamin B12 (Cyanocobalamin) 2020-09-12 10:56:00 Completed [facility] Vitamin B12 (Cyanocobalamin) Vitamin B12 (Cyanocobalamin) 2020-09-12 10:56:00 Completed [facility] Vitamin B12 (Cyanocobalamin) Vitamin B12 (Cyanocobalamin) 2020-09-12 10:56:00 Completed [facility] Vitamin B12 (Cyanocobalamin) Vitamin B12 (Cyanocobalamin) 2020-09-12 10:56:00 Completed [facility] Vitamin B12 (Cyanocobalamin) Vitamin B12 (Cyanocobalamin) 2020-09-12 10:56:00 Completed [facility] Vitamin B12 (Cyanocobalamin) Vitamin B12 (Cyanocobalamin) 2020-09-12 10:56:00 Completed [facility] Vitamin B12 (Cyanocobalamin) Vitamin B12 (Cyanocobalamin) 2020-09-12 10:56:00 Completed [facility] Vitamin B12 (Cyanocobalamin) Vitamin B12 (Cyanocobalamin) 2020-09-12 10:56:00 Completed [facility] Vitamin B12 (Cyanocobalamin) Vitamin B12 (Cyanocobalamin) 2020-09-12 10:56:00 Completed [facility] Vitamin B12 (Cyanocobalamin) Vitamin B12 (Cyanocobalamin) 2020-08-15 11:43:00 Completed [facility] Vitamin B12 (Cyanocobalamin) Vitamin B12 (Cyanocobalamin) 2020-08-15 11:43:00 Completed [facility] Vitamin B12 (Cyanocobalamin) Vitamin B12 (Cyanocobalamin) 2020-08-15 11:43:00 Completed [facility] Vitamin B12 (Cyanocobalamin) Vitamin B12 (Cyanocobalamin) 2020-08-15 11:43:00 Completed [facility] Vitamin B12 (Cyanocobalamin) Vitamin B12 (Cyanocobalamin) 2020-08-15 11:43:00 Completed [facility] Vitamin B12 (Cyanocobalamin) Vitamin B12 (Cyanocobalamin) 2020-08-15 11:43:00 Completed [facility] Vitamin B12 (Cyanocobalamin) Vitamin B12 (Cyanocobalamin) 2020-08-15 11:43:00 Completed [facility] Vitamin B12 (Cyanocobalamin) Vitamin B12 (Cyanocobalamin) 2020-08-15 11:43:00 Completed [facility] Vitamin B12 (Cyanocobalamin) Vitamin B12 (Cyanocobalamin) 2020-08-15 11:43:00 Completed [facility] Vitamin B12 (Cyanocobalamin) Vitamin B12 (Cyanocobalamin) 2020-08-15 11:43:00 Completed [facility] Vitamin B12 (Cyanocobalamin) Vitamin B12 (Cyanocobalamin) 2020-08-15 11:43:00 Completed [facility] Vitamin B12 (Cyanocobalamin) Vitamin B12 (Cyanocobalamin) 2020-08-15 11:43:00 Completed [facility] Vitamin B12 (Cyanocobalamin) Vitamin B12 (Cyanocobalamin) 2020-08-15 11:43:00 Completed [facility] Vitamin B12 (Cyanocobalamin) Vitamin B12 (Cyanocobalamin) 2020-08-15 11:43:00 Completed [facility] Vitamin B12 (Cyanocobalamin) Vitamin B12 (Cyanocobalamin) 2020-08-15 11:43:00 Completed [facility] Vitamin B12 (Cyanocobalamin) Vitamin B12 (Cyanocobalamin) 2020-08-15 11:43:00 Completed [facility] Vitamin B12 (Cyanocobalamin) Vitamin B12 (Cyanocobalamin) 2020-08-15 11:43:00 Completed [facility] Vitamin B12 (Cyanocobalamin) Vitamin B12 (Cyanocobalamin) 2020-08-15 11:43:00 Completed [facility] Vitamin B12 (Cyanocobalamin) Vitamin B12 (Cyanocobalamin) 2020-08-15 11:43:00 Completed [facility] Vitamin B12 (Cyanocobalamin) Vitamin B12 (Cyanocobalamin) 2020-08-15 11:43:00 Completed [facility] Vitamin B12 (Cyanocobalamin) Vitamin B12 (Cyanocobalamin) 2020-08-15 11:43:00 Completed [facility] Vitamin B12 (Cyanocobalamin) Vitamin B12 (Cyanocobalamin) 2020-08-15 11:43:00 Completed [facility] Vitamin B12 (Cyanocobalamin) Vitamin B12 (Cyanocobalamin) 2020-07-31 15:32:00 Completed [facility] Vitamin B12 (Cyanocobalamin) Vitamin B12 (Cyanocobalamin) 2020-07-31 15:32:00 Completed [facility] Vitamin B12 (Cyanocobalamin) Vitamin B12 (Cyanocobalamin) 2020-07-31 15:32:00 Completed [facility] Vitamin B12 (Cyanocobalamin) Vitamin B12 (Cyanocobalamin) 2020-07-31 15:32:00 Completed [facility] Vitamin B12 (Cyanocobalamin) Vitamin B12 (Cyanocobalamin) 2020-07-31 15:32:00 Completed [facility] Vitamin B12 (Cyanocobalamin) Vitamin B12 (Cyanocobalamin) 2020-07-31 15:32:00 Completed [facility] Vitamin B12 (Cyanocobalamin) Vitamin B12 (Cyanocobalamin) 2020-07-31 15:32:00 Completed [facility] Vitamin B12 (Cyanocobalamin) Vitamin B12 (Cyanocobalamin) 2020-07-31 15:32:00 Completed [facility] Vitamin B12 (Cyanocobalamin) Vitamin B12 (Cyanocobalamin) 2020-07-31 15:32:00 Completed [facility] Vitamin B12 (Cyanocobalamin) Vitamin B12 (Cyanocobalamin) 2020-07-31 15:32:00 Completed [facility] Vitamin B12 (Cyanocobalamin) Vitamin B12 (Cyanocobalamin) 2020-07-31 15:32:00 Completed [facility] Vitamin B12 (Cyanocobalamin) Vitamin B12 (Cyanocobalamin) 2020-07-31 15:32:00 Completed [facility] Vitamin B12 (Cyanocobalamin) Vitamin B12 (Cyanocobalamin) 2020-07-31 15:32:00 Completed [facility] Vitamin B12 (Cyanocobalamin) Vitamin B12 (Cyanocobalamin) 2020-07-31 15:32:00 Completed [facility] Vitamin B12 (Cyanocobalamin) Vitamin B12 (Cyanocobalamin) 2020-07-31 15:32:00 Completed [facility] Vitamin B12 (Cyanocobalamin) Vitamin B12 (Cyanocobalamin) 2020-07-31 15:32:00 Completed [facility] Vitamin B12 (Cyanocobalamin) Vitamin B12 (Cyanocobalamin) 2020-07-31 15:32:00 Completed [facility] Vitamin B12 (Cyanocobalamin) Vitamin B12 (Cyanocobalamin) 2020-07-31 15:32:00 Completed [facility] Vitamin B12 (Cyanocobalamin) Vitamin B12 (Cyanocobalamin) 2020-07-31 15:32:00 Completed [facility] Vitamin B12 (Cyanocobalamin) Vitamin B12 (Cyanocobalamin) 2020-07-31 15:32:00 Completed [facility] Vitamin B12 (Cyanocobalamin) Vitamin B12 (Cyanocobalamin) 2020-07-31 15:32:00 Completed [facility] Vitamin B12 (Cyanocobalamin) Vitamin B12 (Cyanocobalamin) 2020-07-31 15:32:00 Completed [facility] Vitamin B12 (Cyanocobalamin) Vitamin B12 (Cyanocobalamin) 2020-05-16 15:06:00 Completed [facility] Vitamin B12 (Cyanocobalamin) Vitamin B12 (Cyanocobalamin) 2020-05-16 15:06:00 Completed [facility] Vitamin B12 (Cyanocobalamin) Vitamin B12 (Cyanocobalamin) 2020-05-16 15:06:00 Completed [facility] Vitamin B12 (Cyanocobalamin) Vitamin B12 (Cyanocobalamin) 2020-05-16 15:06:00 Completed [facility] Vitamin B12 (Cyanocobalamin) Vitamin B12 (Cyanocobalamin) 2020-05-16 15:06:00 Completed [facility] Vitamin B12 (Cyanocobalamin) Vitamin B12 (Cyanocobalamin) 2020-05-16 15:06:00 [facility] Vitamin B12 (Cyanocobalamin) Vitamin B12 (Cyanocobalamin) 2020-05-16 15:06:00 Completed [facility] Vitamin B12 (Cyanocobalamin) Vitamin B12 (Cyanocobalamin) 2020-05-16 15:06:00 Completed [facility] Vitamin B12 (Cyanocobalamin) Vitamin B12 (Cyanocobalamin) 2020-05-16 15:06:00 Completed [facility] Vitamin B12 (Cyanocobalamin) Vitamin B12 (Cyanocobalamin) 2020-05-16 15:06:00 Completed [facility] Vitamin B12 (Cyanocobalamin) Vitamin B12 (Cyanocobalamin) 2020-05-16 15:06:00 Completed [facility] Vitamin B12 (Cyanocobalamin) Vitamin B12 (Cyanocobalamin) 2020-05-16 15:06:00 Completed [facility] Vitamin B12 (Cyanocobalamin) Vitamin B12 (Cyanocobalamin) 2020-05-16 15:06:00 Completed [facility] Vitamin B12 (Cyanocobalamin) Vitamin B12 (Cyanocobalamin) 2020-05-16 15:06:00 Completed [facility] Vitamin B12 (Cyanocobalamin) Vitamin B12 (Cyanocobalamin) 2020-05-16 15:06:00 Completed [facility] Vitamin B12 (Cyanocobalamin) Vitamin B12 (Cyanocobalamin) 2020-05-16 15:06:00 Completed [facility] Vitamin B12 (Cyanocobalamin) Vitamin B12 (Cyanocobalamin) 2020-05-16 15:06:00 Completed [facility] Vitamin B12 (Cyanocobalamin) Vitamin B12 (Cyanocobalamin) 2020-05-16 15:06:00 Completed [facility] Vitamin B12 (Cyanocobalamin) Vitamin B12 (Cyanocobalamin) 2020-05-16 15:06:00 Completed [facility] Vitamin B12 (Cyanocobalamin) Vitamin B12 (Cyanocobalamin) 2020-05-16 15:06:00 [facility] Vitamin B12 (Cyanocobalamin) Vitamin B12 (Cyanocobalamin) 2020-05-16 15:06:00 Completed [facility] Vitamin B12 (Cyanocobalamin) Vitamin B12 (Cyanocobalamin) 2020-05-16 15:06:00 Completed [facility] Vitamin B12 (Cyanocobalamin) Vitamin B12 (Cyanocobalamin) 2020-05-16 15:06:00 Completed [facility] Vitamin B12 (Cyanocobalamin) Vitamin B12 (Cyanocobalamin) 2020-05-16 15:06:00 Completed [facility] Vitamin B12 (Cyanocobalamin) Vitamin B12 (Cyanocobalamin) 2020-05-16 15:06:00 Completed [facility] Vitamin B12 (Cyanocobalamin) Vitamin B12 (Cyanocobalamin) 2020-05-16 15:06:00 Completed [facility] Vitamin B12 (Cyanocobalamin) Vitamin B12 (Cyanocobalamin) 2020-05-16 15:06:00 Completed [facility] Vitamin B12 (Cyanocobalamin) Vitamin B12 (Cyanocobalamin) 2020-04-27 15:49:00 Completed [facility] Vitamin B12 (Cyanocobalamin) Vitamin B12 (Cyanocobalamin) 2020-04-27 15:49:00 Completed [facility] Vitamin B12 (Cyanocobalamin) Vitamin B12 (Cyanocobalamin) 2020-04-27 15:49:00 Completed [facility] Vitamin B12 (Cyanocobalamin) Vitamin B12 (Cyanocobalamin) 2020-04-27 15:49:00 Completed [facility] Vitamin B12 (Cyanocobalamin) Vitamin B12 (Cyanocobalamin) 2020-04-27 15:49:00 Completed [facility] Vitamin B12 (Cyanocobalamin) Vitamin B12 (Cyanocobalamin) 2020-04-27 15:49:00 Completed [facility] Vitamin B12 (Cyanocobalamin) Vitamin B12 (Cyanocobalamin) 2020-04-27 15:49:00 Completed [facility] Vitamin B12 (Cyanocobalamin) Vitamin B12 (Cyanocobalamin) 2020-04-27 15:49:00 Completed [facility] Vitamin B12 (Cyanocobalamin) Vitamin B12 (Cyanocobalamin) 2020-04-27 15:49:00 Completed [facility] Vitamin B12 (Cyanocobalamin) Vitamin B12 (Cyanocobalamin) 2020-04-27 15:49:00 Completed [facility] Vitamin B12 (Cyanocobalamin) Vitamin B12 (Cyanocobalamin) 2020-04-27 15:49:00 Completed [facility] Vitamin B12 (Cyanocobalamin) Vitamin B12 (Cyanocobalamin) 2020-04-27 15:49:00 Completed [facility] Vitamin B12 (Cyanocobalamin) Vitamin B12 (Cyanocobalamin) 2020-04-27 15:49:00 Completed [facility] Vitamin B12 (Cyanocobalamin) Vitamin B12 (Cyanocobalamin) 2020-04-27 15:49:00 Completed [facility] Vitamin B12 (Cyanocobalamin) Vitamin B12 (Cyanocobalamin) 2020-04-27 15:49:00 Completed [facility] Vitamin B12 (Cyanocobalamin) Vitamin B12 (Cyanocobalamin) 2020-04-27 15:49:00 Completed [facility] Vitamin B12 (Cyanocobalamin) Vitamin B12 (Cyanocobalamin) 2020-04-27 15:49:00 Completed [facility] Vitamin B12 (Cyanocobalamin) Vitamin B12 (Cyanocobalamin) 2020-04-27 15:49:00 Completed [facility] Vitamin B12 (Cyanocobalamin) Vitamin B12 (Cyanocobalamin) 2020-04-27 15:49:00 Completed [facility] Vitamin B12 (Cyanocobalamin) Vitamin B12 (Cyanocobalamin) 2020-04-27 15:49:00 Completed [facility] Vitamin B12 (Cyanocobalamin) Vitamin B12 (Cyanocobalamin) 2020-04-27 15:49:00 Completed [facility] Vitamin B12 (Cyanocobalamin) Vitamin B12 (Cyanocobalamin) 2020-04-27 15:49:00 Completed [facility] Vitamin B12 (Cyanocobalamin) Vitamin B12 (Cyanocobalamin) 2020-04-27 15:49:00 Completed [facility] Vitamin B12 (Cyanocobalamin) Vitamin B12 (Cyanocobalamin) 2020-04-27 15:49:00 Completed [facility] Vitamin B12 (Cyanocobalamin) Vitamin B12 (Cyanocobalamin) 2020-04-27 15:49:00 Completed [facility] Vitamin B12 (Cyanocobalamin) Vitamin B12 (Cyanocobalamin) 2020-04-27 15:49:00 Completed [facility] Vitamin B12 (Cyanocobalamin) Vitamin B12 (Cyanocobalamin) 2020-04-27 15:49:00 Completed [facility] Vitamin B12 (Cyanocobalamin) Vitamin B12 (Cyanocobalamin) 2020-04-27 15:49:00 Completed [facility] Vitamin B12 (Cyanocobalamin) Vitamin B12 (Cyanocobalamin) 2020-04-13 14:29:00 Completed [facility] Vitamin B12 (Cyanocobalamin) Vitamin B12 (Cyanocobalamin) 2020-04-13 14:29:00 Completed [facility] Vitamin B12 (Cyanocobalamin) Vitamin B12 (Cyanocobalamin) 2020-04-13 14:29:00 Completed [facility] Vitamin B12 (Cyanocobalamin) Vitamin B12 (Cyanocobalamin) 2020-04-13 14:29:00 Completed [facility] Vitamin B12 (Cyanocobalamin) Vitamin B12 (Cyanocobalamin) 2020-04-13 14:29:00 Completed [facility] Vitamin B12 (Cyanocobalamin) Vitamin B12 (Cyanocobalamin) 2020-04-13 14:29:00 Completed [facility] Vitamin B12 (Cyanocobalamin) Vitamin B12 (Cyanocobalamin) 2020-04-13 14:29:00 Completed [facility] Vitamin B12 (Cyanocobalamin) Vitamin B12 (Cyanocobalamin) 2020-04-13 14:29:00 Completed [facility] Vitamin B12 (Cyanocobalamin) Vitamin B12 (Cyanocobalamin) 2020-04-13 14:29:00 Completed [facility] Vitamin B12 (Cyanocobalamin) Vitamin B12 (Cyanocobalamin) 2020-04-13 14:29:00 Completed [facility] Vitamin B12 (Cyanocobalamin) Vitamin B12 (Cyanocobalamin) 2020-04-13 14:29:00 Completed [facility] Vitamin B12 (Cyanocobalamin) Vitamin B12 (Cyanocobalamin) 2020-04-13 14:29:00 Completed [facility] Vitamin B12 (Cyanocobalamin) Vitamin B12 (Cyanocobalamin) 2020-04-13 14:29:00 Completed [facility] Vitamin B12 (Cyanocobalamin) Vitamin B12 (Cyanocobalamin) 2020-04-13 14:29:00 Completed [facility] Vitamin B12 (Cyanocobalamin) Vitamin B12 (Cyanocobalamin) 2020-04-13 14:29:00 Completed [facility] Vitamin B12 (Cyanocobalamin) Vitamin B12 (Cyanocobalamin) 2020-04-13 14:29:00 Completed [facility] Vitamin B12 (Cyanocobalamin) Vitamin B12 (Cyanocobalamin) 2020-04-13 14:29:00 Completed [facility] Vitamin B12 (Cyanocobalamin) Vitamin B12 (Cyanocobalamin) 2020-04-13 14:29:00 Completed [facility] Vitamin B12 (Cyanocobalamin) Vitamin B12 (Cyanocobalamin) 2020-04-13 14:29:00 Completed [facility] Vitamin B12 (Cyanocobalamin) Vitamin B12 (Cyanocobalamin) 2020-04-13 14:29:00 Completed [facility] Vitamin B12 (Cyanocobalamin) Vitamin B12 (Cyanocobalamin) 2020-04-13 14:29:00 Completed [facility] Vitamin B12 (Cyanocobalamin) Vitamin B12 (Cyanocobalamin) 2020-04-13 14:29:00 Completed [facility] Vitamin B12 (Cyanocobalamin) Vitamin B12 (Cyanocobalamin) 2020-04-13 14:29:00 Completed [facility] Vitamin B12 (Cyanocobalamin) Vitamin B12 (Cyanocobalamin) 2020-04-13 14:29:00 Completed [facility] Vitamin B12 (Cyanocobalamin) Vitamin B12 (Cyanocobalamin) 2020-04-13 14:29:00 Completed [facility] Vitamin B12 (Cyanocobalamin) Vitamin B12 (Cyanocobalamin) 2020-04-13 14:29:00 Completed [facility] Vitamin B12 (Cyanocobalamin) Vitamin B12 (Cyanocobalamin) 2020-04-13 14:29:00 Completed [facility] Vitamin B12 (Cyanocobalamin) Vitamin B12 (Cyanocobalamin) 2020-04-13 14:29:00 Completed [facility] Vitamin B12 (Cyanocobalamin) Vitamin B12 (Cyanocobalamin) 2020-04-13 14:29:00 Completed [facility] Vitamin B12 (Cyanocobalamin) Vitamin B12 (Cyanocobalamin) 2020-04-13 14:29:00 Completed [facility] Vitamin B12 (Cyanocobalamin) Vitamin B12 (Cyanocobalamin) 2020-03-30 11:47:00 Completed [facility] Vitamin B12 (Cyanocobalamin) Vitamin B12 (Cyanocobalamin) 2020-03-30 11:47:00 Completed [facility] Vitamin B12 (Cyanocobalamin) Vitamin B12 (Cyanocobalamin) 2020-03-30 11:47:00 Completed [facility] Vitamin B12 (Cyanocobalamin) Vitamin B12 (Cyanocobalamin) 2020-03-30 11:47:00 Completed [facility] Vitamin B12 (Cyanocobalamin) Vitamin B12 (Cyanocobalamin) 2020-03-30 11:47:00 Completed [facility] Vitamin B12 (Cyanocobalamin) Vitamin B12 (Cyanocobalamin) 2020-03-30 11:47:00 Completed [facility] Vitamin B12 (Cyanocobalamin) Vitamin B12 (Cyanocobalamin) 2020-03-30 11:47:00 Completed [facility] Vitamin B12 (Cyanocobalamin) Vitamin B12 (Cyanocobalamin) 2020-03-30 11:47:00 Completed [facility] Vitamin B12 (Cyanocobalamin) Vitamin B12 (Cyanocobalamin) 2020-03-30 11:47:00 Completed [facility] Vitamin B12 (Cyanocobalamin) Vitamin B12 (Cyanocobalamin) 2020-03-30 11:47:00 Completed [facility] Vitamin B12 (Cyanocobalamin) Vitamin B12 (Cyanocobalamin) 2020-03-30 11:47:00 Completed [facility] Vitamin B12 (Cyanocobalamin) Vitamin B12 (Cyanocobalamin) 2020-03-30 11:47:00 Completed [facility] Vitamin B12 (Cyanocobalamin) Vitamin B12 (Cyanocobalamin) 2020-03-30 11:47:00 Completed [facility] Vitamin B12 (Cyanocobalamin) Vitamin B12 (Cyanocobalamin) 2020-03-30 11:47:00 Completed [facility] Vitamin B12 (Cyanocobalamin) Vitamin B12 (Cyanocobalamin) 2020-03-30 11:47:00 Completed [facility] Vitamin B12 (Cyanocobalamin) Vitamin B12 (Cyanocobalamin) 2020-03-30 11:47:00 Completed [facility] Vitamin B12 (Cyanocobalamin) Vitamin B12 (Cyanocobalamin) 2020-03-30 11:47:00 Completed [facility] Vitamin B12 (Cyanocobalamin) Vitamin B12 (Cyanocobalamin) 2020-03-30 11:47:00 Completed [facility] Vitamin B12 (Cyanocobalamin) Vitamin B12 (Cyanocobalamin) 2020-03-30 11:47:00 Completed [facility] Vitamin B12 (Cyanocobalamin) Vitamin B12 (Cyanocobalamin) 2020-03-30 11:47:00 Completed [facility] Vitamin B12 (Cyanocobalamin) Vitamin B12 (Cyanocobalamin) 2020-03-30 11:47:00 Completed [facility] Vitamin B12 (Cyanocobalamin) Vitamin B12 (Cyanocobalamin) 2020-03-30 11:47:00 Completed [facility] Vitamin B12 (Cyanocobalamin) Vitamin B12 (Cyanocobalamin) 2020-03-30 11:47:00 Completed [facility] Vitamin B12 (Cyanocobalamin) Vitamin B12 (Cyanocobalamin) 2020-03-30 11:47:00 Completed [facility] Vitamin B12 (Cyanocobalamin) Vitamin B12 (Cyanocobalamin) 2020-03-30 11:47:00 Completed [facility] Vitamin B12 (Cyanocobalamin) Vitamin B12 (Cyanocobalamin) 2020-03-30 11:47:00 Completed [facility] Vitamin B12 (Cyanocobalamin) Vitamin B12 (Cyanocobalamin) 2020-03-30 11:47:00 Completed [facility] Vitamin B12 (Cyanocobalamin) Vitamin B12 (Cyanocobalamin) 2020-03-30 11:47:00 Completed [facility] Vitamin B12 (Cyanocobalamin) Vitamin B12 (Cyanocobalamin) 2020-03-30 11:47:00 Completed [facility] Vitamin B12 (Cyanocobalamin) Vitamin B12 (Cyanocobalamin) 2020-03-30 11:47:00 Completed [facility] Vitamin B12 (Cyanocobalamin) Vitamin B12 (Cyanocobalamin) 2020-03-30 11:47:00 Completed [facility] Vitamin B12 (Cyanocobalamin) Vitamin B12 (Cyanocobalamin) 2020-03-30 11:47:00 Completed [facility] Vitamin B12 (Cyanocobalamin) Vitamin B12 (Cyanocobalamin) 2020-03-16 16:44:00 Completed [facility] Vitamin B12 (Cyanocobalamin) Vitamin B12 (Cyanocobalamin) 2020-03-16 16:44:00 Completed [facility] Vitamin B12 (Cyanocobalamin) Vitamin B12 (Cyanocobalamin) 2020-03-16 16:44:00 Completed [facility] Vitamin B12 (Cyanocobalamin) Vitamin B12 (Cyanocobalamin) 2020-03-16 16:44:00 Completed [facility] Vitamin B12 (Cyanocobalamin) Vitamin B12 (Cyanocobalamin) 2020-03-16 16:44:00 Completed [facility] Vitamin B12 (Cyanocobalamin) Vitamin B12 (Cyanocobalamin) 2020-03-16 16:44:00 Completed [facility] Vitamin B12 (Cyanocobalamin) Vitamin B12 (Cyanocobalamin) 2020-03-16 16:44:00 Completed [facility] Vitamin B12 (Cyanocobalamin) Vitamin B12 (Cyanocobalamin) 2020-03-16 16:44:00 Completed [facility] Vitamin B12 (Cyanocobalamin) Vitamin B12 (Cyanocobalamin) 2020-03-16 16:44:00 Completed [facility] Vitamin B12 (Cyanocobalamin) Vitamin B12 (Cyanocobalamin) 2020-03-16 16:44:00 Completed [facility] Vitamin B12 (Cyanocobalamin) Vitamin B12 (Cyanocobalamin) 2020-03-16 16:44:00 Completed [facility] Vitamin B12 (Cyanocobalamin) Vitamin B12 (Cyanocobalamin) 2020-03-16 16:44:00 Completed [facility] Vitamin B12 (Cyanocobalamin) Vitamin B12 (Cyanocobalamin) 2020-03-16 16:44:00 Completed [facility] Vitamin B12 (Cyanocobalamin) Vitamin B12 (Cyanocobalamin) 2020-03-16 16:44:00 Completed [facility] Vitamin B12 (Cyanocobalamin) Vitamin B12 (Cyanocobalamin) 2020-03-16 16:44:00 Completed [facility] Vitamin B12 (Cyanocobalamin) Vitamin B12 (Cyanocobalamin) 2020-03-16 16:44:00 Completed [facility] Vitamin B12 (Cyanocobalamin) Vitamin B12 (Cyanocobalamin) 2020-03-16 16:44:00 Completed [facility] Vitamin B12 (Cyanocobalamin) Vitamin B12 (Cyanocobalamin) 2020-03-16 16:44:00 Completed [facility] Vitamin B12 (Cyanocobalamin) Vitamin B12 (Cyanocobalamin) 2020-03-16 16:44:00 Completed [facility] Vitamin B12 (Cyanocobalamin) Vitamin B12 (Cyanocobalamin) 2020-03-16 16:44:00 Completed [facility] Vitamin B12 (Cyanocobalamin) Vitamin B12 (Cyanocobalamin) 2020-03-16 16:44:00 Completed [facility] Vitamin B12 (Cyanocobalamin) Vitamin B12 (Cyanocobalamin) 2020-03-16 16:44:00 Completed [facility] Vitamin B12 (Cyanocobalamin) Vitamin B12 (Cyanocobalamin) 2020-03-16 16:44:00 Completed [facility] Vitamin B12 (Cyanocobalamin) Vitamin B12 (Cyanocobalamin) 2020-03-16 16:44:00 Completed [facility] Vitamin B12 (Cyanocobalamin) Vitamin B12 (Cyanocobalamin) 2020-03-16 16:44:00 Completed [facility] Vitamin B12 (Cyanocobalamin) Vitamin B12 (Cyanocobalamin) 2020-03-16 16:44:00 Completed [facility] Vitamin B12 (Cyanocobalamin) Vitamin B12 (Cyanocobalamin) 2020-03-16 16:44:00 Completed [facility] Vitamin B12 (Cyanocobalamin) Vitamin B12 (Cyanocobalamin) 2020-03-16 16:44:00 Completed [facility] Vitamin B12 (Cyanocobalamin) Vitamin B12 (Cyanocobalamin) 2020-03-16 16:44:00 Completed [facility] Vitamin B12 (Cyanocobalamin) Vitamin B12 (Cyanocobalamin) 2020-03-16 16:44:00 Completed [facility] Vitamin B12 (Cyanocobalamin) Vitamin B12 (Cyanocobalamin) 2020-03-16 16:44:00 Completed [facility] Vitamin B12 (Cyanocobalamin) Vitamin B12 (Cyanocobalamin) 2020-03-16 16:44:00 Completed [facility] Vitamin B12 (Cyanocobalamin) Vitamin B12 (Cyanocobalamin) 2020-03-16 16:44:00 Completed [facility] Vitamin B12 (Cyanocobalamin) Vitamin B12 (Cyanocobalamin) 2020-03-16 16:44:00 Completed [facility] Vitamin B12 (Cyanocobalamin) Vitamin B12 (Cyanocobalamin) 2020-03-16 16:44:00 Completed [facility] Kenalog (Triamcinolone) Kenalog (Triamcinolone) 2019-08-03 15:15:00 Completed [facility] Kenalog (Triamcinolone) Kenalog (Triamcinolone) 2019-08-03 15:15:00 Completed [facility] Kenalog (Triamcinolone) Kenalog (Triamcinolone) 2019-08-03 15:15:00 Completed [facility] Kenalog (Triamcinolone) Kenalog (Triamcinolone) 2019-08-03 15:15:00 Completed [facility] Kenalog (Triamcinolone) Kenalog (Triamcinolone) 2019-08-03 15:15:00 Completed [facility] Kenalog (Triamcinolone) Kenalog (Triamcinolone) 2019-08-03 15:15:00 Completed [facility] Kenalog (Triamcinolone) Kenalog (Triamcinolone) 2019-08-03 15:15:00 Completed [facility] Kenalog (Triamcinolone) Kenalog (Triamcinolone) 2019-08-03 15:15:00 Completed [facility] Kenalog (Triamcinolone) Kenalog (Triamcinolone) 2019-08-03 15:15:00 Completed [facility] Kenalog (Triamcinolone) Kenalog (Triamcinolone) 2019-08-03 15:15:00 Completed [facility] Kenalog (Triamcinolone) Kenalog (Triamcinolone) 2019-08-03 15:15:00 Completed [facility] Kenalog (Triamcinolone) Kenalog (Triamcinolone) 2019-08-03 15:15:00 Completed [facility] Kenalog (Triamcinolone) Kenalog (Triamcinolone) 2019-08-03 15:15:00 Completed [facility] Kenalog (Triamcinolone) Kenalog (Triamcinolone) 2019-08-03 15:15:00 Completed [facility] Kenalog (Triamcinolone) Kenalog (Triamcinolone) 2019-08-03 15:15:00 Completed [facility] Kenalog (Triamcinolone) Kenalog (Triamcinolone) 2019-08-03 15:15:00 Completed [facility] Kenalog (Triamcinolone) Kenalog (Triamcinolone) 2019-08-03 15:15:00 Completed [facility] Kenalog (Triamcinolone) Kenalog (Triamcinolone) 2019-08-03 15:15:00 Completed [facility] Kenalog (Triamcinolone) Kenalog (Triamcinolone) 2019-08-03 15:15:00 Completed [facility] Kenalog (Triamcinolone) Kenalog (Triamcinolone) 2019-08-03 15:15:00 [facility] Kenalog (Triamcinolone) Kenalog (Triamcinolone) 2019-08-03 15:15:00 [facility] Kenalog (Triamcinolone) Kenalog (Triamcinolone) 2019-08-03 15:15:00 Completed [facility] Kenalog (Triamcinolone) Kenalog (Triamcinolone) 2019-08-03 15:15:00 Completed [facility] Kenalog (Triamcinolone) Kenalog (Triamcinolone) 2019-08-03 15:15:00 Completed [facility] Kenalog (Triamcinolone) Kenalog (Triamcinolone) 2019-08-03 15:15:00 Completed [facility] Kenalog (Triamcinolone) Kenalog (Triamcinolone) 2019-08-03 15:15:00 Completed [facility] Kenalog (Triamcinolone) Kenalog (Triamcinolone) 2019-08-03 15:15:00 Completed [facility] Kenalog (Triamcinolone) Kenalog (Triamcinolone) 2019-08-03 15:15:00 [facility] Kenalog (Triamcinolone) Kenalog (Triamcinolone) 2019-08-03 15:15:00 [facility] Kenalog (Triamcinolone) Kenalog (Triamcinolone) 2019-08-03 15:15:00 Completed [facility] Kenalog (Triamcinolone) Kenalog (Triamcinolone) 2019-08-03 15:15:00 Completed [facility] Kenalog (Triamcinolone) Kenalog (Triamcinolone) 2019-08-03 15:15:00 Completed [facility] Kenalog (Triamcinolone) Kenalog (Triamcinolone) 2019-08-03 15:15:00 Completed [facility] Kenalog (Triamcinolone) Kenalog (Triamcinolone) 2019-08-03 15:15:00 Completed [facility] Kenalog (Triamcinolone) Kenalog (Triamcinolone) 2019-08-03 15:15:00 Completed [facility] Kenalog (Triamcinolone) Kenalog (Triamcinolone) 2019-07-06 10:04:00 [facility] Kenalog (Triamcinolone) Kenalog (Triamcinolone) 2019-07-06 10:04:00 [facility] Kenalog (Triamcinolone) Kenalog (Triamcinolone) 2019-07-06 10:04:00 [facility] Kenalog (Triamcinolone) Kenalog (Triamcinolone) 2019-07-06 10:04:00 [facility] Kenalog (Triamcinolone) Kenalog (Triamcinolone) 2019-07-06 10:04:00 Completed [facility] Kenalog (Triamcinolone) Kenalog (Triamcinolone) 2019-07-06 10:04:00 Completed [facility] Kenalog (Triamcinolone) Kenalog (Triamcinolone) 2019-07-06 10:04:00 Completed [facility] Kenalog (Triamcinolone) Kenalog (Triamcinolone) 2019-07-06 10:04:00 Completed [facility] Kenalog (Triamcinolone) Kenalog (Triamcinolone) 2019-07-06 10:04:00 Completed [facility] Kenalog (Triamcinolone) Kenalog (Triamcinolone) 2019-07-06 10:04:00 [facility] Kenalog (Triamcinolone) Kenalog (Triamcinolone) 2019-07-06 10:04:00 Completed [facility] Kenalog (Triamcinolone) Kenalog (Triamcinolone) 2019-07-06 10:04:00 Completed [facility] Kenalog (Triamcinolone) Kenalog (Triamcinolone) 2019-07-06 10:04:00 [facility] Kenalog (Triamcinolone) Kenalog (Triamcinolone) 2019-07-06 10:04:00 [facility] Kenalog (Triamcinolone) Kenalog (Triamcinolone) 2019-07-06 10:04:00 Completed [facility] Kenalog (Triamcinolone) Kenalog (Triamcinolone) 2019-07-06 10:04:00 Completed [facility] Kenalog (Triamcinolone) Kenalog (Triamcinolone) 2019-07-06 10:04:00 [facility] Kenalog (Triamcinolone) Kenalog (Triamcinolone) 2019-07-06 10:04:00 Completed [facility] Kenalog (Triamcinolone) Kenalog (Triamcinolone) 2019-07-06 10:04:00 [facility] Kenalog (Triamcinolone) Kenalog (Triamcinolone) 2019-07-06 10:04:00 [facility] Kenalog (Triamcinolone) Kenalog (Triamcinolone) 2019-07-06 10:04:00 Completed [facility] Kenalog (Triamcinolone) Kenalog (Triamcinolone) 2019-07-06 10:04:00 [facility] Kenalog (Triamcinolone) Kenalog (Triamcinolone) 2019-07-06 10:04:00 Completed [facility] Kenalog (Triamcinolone) Kenalog (Triamcinolone) 2019-07-06 10:04:00 Completed [facility] Kenalog (Triamcinolone) Kenalog (Triamcinolone) 2019-07-06 10:04:00 Completed [facility] Kenalog (Triamcinolone) Kenalog (Triamcinolone) 2019-07-06 10:04:00 Completed [facility] Kenalog (Triamcinolone) Kenalog (Triamcinolone) 2019-07-06 10:04:00 Completed [facility] Kenalog (Triamcinolone) Kenalog (Triamcinolone) 2019-07-06 10:04:00 Completed [facility] Kenalog (Triamcinolone) Kenalog (Triamcinolone) 2019-07-06 10:04:00 Completed [facility] Kenalog (Triamcinolone) Kenalog (Triamcinolone) 2019-07-06 10:04:00 Completed [facility] Kenalog (Triamcinolone) Kenalog (Triamcinolone) 2019-07-06 10:04:00 Completed [facility] Kenalog (Triamcinolone) Kenalog (Triamcinolone) 2019-07-06 10:04:00 Completed [facility] Kenalog (Triamcinolone) Kenalog (Triamcinolone) 2019-07-06 10:04:00 Completed [facility] Kenalog (Triamcinolone) Kenalog (Triamcinolone) 2019-07-06 10:04:00 Completed [facility] Kenalog (Triamcinolone) Kenalog (Triamcinolone) 2019-07-06 10:04:00 Completed [facility] Kenalog (Triamcinolone) Kenalog (Triamcinolone) 2019-05-17 15:11:00 Completed [facility] Kenalog (Triamcinolone) Kenalog (Triamcinolone) 2019-05-17 15:11:00 Completed [facility] Kenalog (Triamcinolone) Kenalog (Triamcinolone) 2019-05-17 15:11:00 [facility] Kenalog (Triamcinolone) Kenalog (Triamcinolone) 2019-05-17 15:11:00 [facility] Kenalog (Triamcinolone) Kenalog (Triamcinolone) 2019-05-17 15:11:00 Completed [facility] Kenalog (Triamcinolone) Kenalog (Triamcinolone) 2019-05-17 15:11:00 [facility] Kenalog (Triamcinolone) Kenalog (Triamcinolone) 2019-05-17 15:11:00 [facility] Kenalog (Triamcinolone) Kenalog (Triamcinolone) 2019-05-17 15:11:00 Completed [facility] Kenalog (Triamcinolone) Kenalog (Triamcinolone) 2019-05-17 15:11:00 Completed [facility] Kenalog (Triamcinolone) Kenalog (Triamcinolone) 2019-05-17 15:11:00 [facility] Kenalog (Triamcinolone) Kenalog (Triamcinolone) 2019-05-17 15:11:00 Completed [facility] Kenalog (Triamcinolone) Kenalog (Triamcinolone) 2019-05-17 15:11:00 Completed [facility] Kenalog (Triamcinolone) Kenalog (Triamcinolone) 2019-05-17 15:11:00 Completed [facility] Kenalog (Triamcinolone) Kenalog (Triamcinolone) 2019-05-17 15:11:00 Completed [facility] Kenalog (Triamcinolone) Kenalog (Triamcinolone) 2019-05-17 15:11:00 Completed [facility] Kenalog (Triamcinolone) Kenalog (Triamcinolone) 2019-05-17 15:11:00 Completed [facility] Kenalog (Triamcinolone) Kenalog (Triamcinolone) 2019-05-17 15:11:00 Completed [facility] Kenalog (Triamcinolone) Kenalog (Triamcinolone) 2019-05-17 15:11:00 Completed [facility] Kenalog (Triamcinolone) Kenalog (Triamcinolone) 2019-05-17 15:11:00 Completed [facility] Kenalog (Triamcinolone) Kenalog (Triamcinolone) 2019-05-17 15:11:00 Completed [facility] Kenalog (Triamcinolone) Kenalog (Triamcinolone) 2019-05-17 15:11:00 Completed [facility] Kenalog (Triamcinolone) Kenalog (Triamcinolone) 2019-05-17 15:11:00 Completed [facility] Kenalog (Triamcinolone) Kenalog (Triamcinolone) 2019-05-17 15:11:00 Completed [facility] Kenalog (Triamcinolone) Kenalog (Triamcinolone) 2019-05-17 15:11:00 Completed [facility] Kenalog (Triamcinolone) Kenalog (Triamcinolone) 2019-05-17 15:11:00 Completed [facility] Kenalog (Triamcinolone) Kenalog (Triamcinolone) 2019-05-17 15:11:00 Completed [facility] Kenalog (Triamcinolone) Kenalog (Triamcinolone) 2019-05-17 15:11:00 Completed [facility] Kenalog (Triamcinolone) Kenalog (Triamcinolone) 2019-05-17 15:11:00 Completed [facility] Kenalog (Triamcinolone) Kenalog (Triamcinolone) 2019-05-17 15:11:00 Completed [facility] Kenalog (Triamcinolone) Kenalog (Triamcinolone) 2019-05-17 15:11:00 Completed [facility] Kenalog (Triamcinolone) Kenalog (Triamcinolone) 2019-05-17 15:11:00 Com[facility] Kenalog (Triamcinolone) Kenalog (Triamcinolone) 2019-05-17 15:11:00 [facility] Kenalog (Triamcinolone) Kenalog (Triamcinolone) 2019-05-17 15:11:00 Completed [facility] Kenalog (Triamcinolone) Kenalog (Triamcinolone) 2019-05-17 15:11:00 [facility] Kenalog (Triamcinolone) Kenalog (Triamcinolone) 2019-05-17 15:11:00 Completed [facility] Kenalog (Triamcinolone) Kenalog (Triamcinolone) 2018-03-25 10:41:00 Completed [facility] Kenalog (Triamcinolone) Kenalog (Triamcinolone) 2018-03-25 10:41:00 Completed [facility] Kenalog (Triamcinolone) Kenalog (Triamcinolone) 2018-03-25 10:41:00 Completed [facility] Kenalog (Triamcinolone) Kenalog (Triamcinolone) 2018-03-25 10:41:00 Completed [facility] Kenalog (Triamcinolone) Kenalog (Triamcinolone) 2018-03-25 10:41:00 Completed [facility] Kenalog (Triamcinolone) Kenalog (Triamcinolone) 2018-03-25 10:41:00 Completed [facility] Kenalog (Triamcinolone) Kenalog (Triamcinolone) 2018-03-25 10:41:00 Completed [facility] Kenalog (Triamcinolone) Kenalog (Triamcinolone) 2018-03-25 10:41:00 Completed [facility] Kenalog (Triamcinolone) Kenalog (Triamcinolone) 2018-03-25 10:41:00 Completed [facility] Kenalog (Triamcinolone) Kenalog (Triamcinolone) 2018-03-25 10:41:00 Completed [facility] Kenalog (Triamcinolone) Kenalog (Triamcinolone) 2018-03-25 10:41:00 Completed [facility] Kenalog (Triamcinolone) Kenalog (Triamcinolone) 2018-03-25 10:41:00 Completed [facility] Kenalog (Triamcinolone) Kenalog (Triamcinolone) 2018-03-25 10:41:00 [facility] Kenalog (Triamcinolone) Kenalog (Triamcinolone) 2018-03-25 10:41:00 Completed [facility] Kenalog (Triamcinolone) Kenalog (Triamcinolone) 2018-03-25 10:41:00 Completed [facility] Kenalog (Triamcinolone) Kenalog (Triamcinolone) 2018-03-25 10:41:00 Completed [facility] Kenalog (Triamcinolone) Kenalog (Triamcinolone) 2018-03-25 10:41:00 Completed [facility] Kenalog (Triamcinolone) Kenalog (Triamcinolone) 2018-03-25 10:41:00 Completed [facility] Kenalog (Triamcinolone) Kenalog (Triamcinolone) 2018-03-25 10:41:00 Completed [facility] Kenalog (Triamcinolone) Kenalog (Triamcinolone) 2018-03-25 10:41:00 Completed [facility] Kenalog (Triamcinolone) Kenalog (Triamcinolone) 2018-03-25 10:41:00 Completed [facility] Kenalog (Triamcinolone) Kenalog (Triamcinolone) 2018-03-25 10:41:00 Completed [facility] Kenalog (Triamcinolone) Kenalog (Triamcinolone) 2018-03-25 10:41:00 [facility] Kenalog (Triamcinolone) Kenalog (Triamcinolone) 2018-03-25 10:41:00 [facility] Kenalog (Triamcinolone) Kenalog (Triamcinolone) 2018-03-25 10:41:00 [facility] Kenalog (Triamcinolone) Kenalog (Triamcinolone) 2018-03-25 10:41:00 [facility] Kenalog (Triamcinolone) Kenalog (Triamcinolone) 2018-03-25 10:41:00 [facility] Kenalog (Triamcinolone) Kenalog (Triamcinolone) 2018-03-25 10:41:00 Completed [facility] Kenalog (Triamcinolone) Kenalog (Triamcinolone) 2018-03-25 10:41:00 Completed [facility] Kenalog (Triamcinolone) Kenalog (Triamcinolone) 2018-03-25 10:41:00 Completed [facility] Kenalog (Triamcinolone) Kenalog (Triamcinolone) 2018-03-25 10:41:00 [facility] Kenalog (Triamcinolone) Kenalog (Triamcinolone) 2018-03-25 10:41:00 Completed [facility] Kenalog (Triamcinolone) Kenalog (Triamcinolone) 2018-03-25 10:41:00 Completed [facility] Kenalog (Triamcinolone) Kenalog (Triamcinolone) 2018-03-25 10:41:00 Completed [facility] Kenalog (Triamcinolone) Kenalog (Triamcinolone) 2018-03-25 10:41:00 Completed [facility] Kenalog (Triamcinolone) Kenalog (Triamcinolone) 2017-11-04 10:43:00 Completed [facility] Kenalog (Triamcinolone) Kenalog (Triamcinolone) 2017-11-04 10:43:00 Completed [facility] Kenalog (Triamcinolone) Kenalog (Triamcinolone) 2017-11-04 10:43:00 Completed [facility] Kenalog (Triamcinolone) Kenalog (Triamcinolone) 2017-11-04 10:43:00 Completed [facility] Kenalog (Triamcinolone) Kenalog (Triamcinolone) 2017-11-04 10:43:00 [facility] Kenalog (Triamcinolone) Kenalog (Triamcinolone) 2017-11-04 10:43:00 [facility] Kenalog (Triamcinolone) Kenalog (Triamcinolone) 2017-11-04 10:43:00 Completed [facility] Kenalog (Triamcinolone) Kenalog (Triamcinolone) 2017-11-04 10:43:00 Completed [facility] Kenalog (Triamcinolone) Kenalog (Triamcinolone) 2017-11-04 10:43:00 Completed [facility] Kenalog (Triamcinolone) Kenalog (Triamcinolone) 2017-11-04 10:43:00 Completed [facility] Kenalog (Triamcinolone) Kenalog (Triamcinolone) 2017-11-04 10:43:00 Completed [facility] Kenalog (Triamcinolone) Kenalog (Triamcinolone) 2017-11-04 10:43:00 Completed [facility] Kenalog (Triamcinolone) Kenalog (Triamcinolone) 2017-11-04 10:43:00 Completed [facility] Kenalog (Triamcinolone) Kenalog (Triamcinolone) 2017-11-04 10:43:00 Completed [facility] Kenalog (Triamcinolone) Kenalog (Triamcinolone) 2017-11-04 10:43:00 Completed [facility] Kenalog (Triamcinolone) Kenalog (Triamcinolone) 2017-11-04 10:43:00 Com[facility] Kenalog (Triamcinolone) Kenalog (Triamcinolone) 2017-11-04 10:43:00 Com[facility] Kenalog (Triamcinolone) Kenalog (Triamcinolone) 2017-11-04 10:43:00 [facility] Kenalog (Triamcinolone) Kenalog (Triamcinolone) 2017-11-04 10:43:00 [facility] Kenalog (Triamcinolone) Kenalog (Triamcinolone) 2017-11-04 10:43:00 [facility] Kenalog (Triamcinolone) Kenalog (Triamcinolone) 2017-11-04 10:43:00 [facility] Kenalog (Triamcinolone) Kenalog (Triamcinolone) 2017-11-04 10:43:00 [facility] Kenalog (Triamcinolone) Kenalog (Triamcinolone) 2017-11-04 10:43:00 Completed [facility] Kenalog (Triamcinolone) Kenalog (Triamcinolone) 2017-11-04 10:43:00 [facility] Kenalog (Triamcinolone) Kenalog (Triamcinolone) 2017-11-04 10:43:00 Completed [facility] Kenalog (Triamcinolone) Kenalog (Triamcinolone) 2017-11-04 10:43:00 Completed [facility] Kenalog (Triamcinolone) Kenalog (Triamcinolone) 2017-11-04 10:43:00 Completed [facility] Kenalog (Triamcinolone) Kenalog (Triamcinolone) 2017-11-04 10:43:00 Completed [facility] Kenalog (Triamcinolone) Kenalog (Triamcinolone) 2017-11-04 10:43:00 Completed [facility] Kenalog (Triamcinolone) Kenalog (Triamcinolone) 2017-11-04 10:43:00 Completed [facility] Kenalog (Triamcinolone) Kenalog (Triamcinolone) 2017-11-04 10:43:00 Completed [facility] Kenalog (Triamcinolone) Kenalog (Triamcinolone) 2017-11-04 10:43:00 Completed [facility] Kenalog (Triamcinolone) Kenalog (Triamcinolone) 2017-11-04 10:43:00 Completed [facility] Kenalog (Triamcinolone) Kenalog (Triamcinolone) 2017-11-04 10:43:00 Completed [facility] Kenalog (Triamcinolone) Kenalog (Triamcinolone) 2017-11-04 10:43:00 Completed [facility] Prevnar 20 (PCV20) Prevnar 20 (PCV20) Unknown Completed [facility] FLUZONE HIGH DOSE OVER 65 FLUZONE HIGH DOSE OVER 65 Unknown Completed [facility] Prevnar 20 (PCV20) Prevnar 20 (PCV20) Unknown Completed [facility] FLUZONE HIGH DOSE OVER 65 FLUZONE HIGH DOSE OVER 65 Unknown Completed [facility] Prevnar 20 (PCV20) Prevnar 20 (PCV20) Unknown Completed [facility] FLUZONE HIGH DOSE OVER 65 FLUZONE HIGH DOSE OVER 65 Unknown Completed [facility] Prevnar 20 (PCV20) Prevnar 20 (PCV20) Unknown Completed [facility] FLUZONE HIGH DOSE OVER 65 FLUZONE HIGH DOSE OVER 65 Unknown Completed [facility] Prevnar 20 (PCV20) Prevnar 20 (PCV20) Unknown Completed [facility] FLUZONE HIGH DOSE OVER 65 FLUZONE HIGH DOSE OVER 65 Unknown Completed [facility] Prevnar 20 (PCV20) Prevnar 20 (PCV20) Unknown Completed [facility] FLUZONE HIGH DOSE OVER 65 FLUZONE HIGH DOSE OVER 65 Unknown Completed [facility] Prevnar 20 (PCV20) Prevnar 20 (PCV20) Unknown Completed [facility] FLUZONE HIGH DOSE OVER 65 FLUZONE HIGH DOSE OVER 65 Unknown Completed [facility] Prevnar 20 (PCV20) Prevnar 20 (PCV20) Unknown Completed [facility] FLUZONE HIGH DOSE OVER 65 FLUZONE HIGH DOSE OVER 65 Unknown Completed [facility] Prevnar 20 (PCV20) Prevnar 20 (PCV20) Unknown Completed [facility] FLUZONE HIGH DOSE OVER 65 FLUZONE HIGH DOSE OVER 65 Unknown Completed [facility] Prevnar 20 (PCV20) Prevnar 20 (PCV20) Unknown Completed [facility] FluAD Quad SD FluAD Quad SD Unknown Completed [facility] FLUZONE HIGH DOSE OVER 65 FLUZONE HIGH DOSE OVER 65 Unknown Completed [facility] Prevnar 20 (PCV20) Prevnar 20 (PCV20) Unknown Completed [facility] FluAD Quad SD FluAD Quad SD Unknown Completed [facility] FLUZONE HIGH DOSE OVER 65 FLUZONE HIGH DOSE OVER 65 Unknown Completed [facility] Prevnar 20 (PCV20) Prevnar 20 (PCV20) Unknown Completed [facility] FluAD Quad SD FluAD Quad SD Unknown Completed [facility] FLUZONE HIGH DOSE OVER 65 FLUZONE HIGH DOSE OVER 65 Unknown Completed [facility] Prevnar 20 (PCV20) Prevnar 20 (PCV20) Unknown Completed [facility] FluAD Quad SD FluAD Quad SD Unknown Completed [facility] FLUZONE HIGH DOSE OVER 65 FLUZONE HIGH DOSE OVER 65 Unknown Completed [facility] Prevnar 20 (PCV20) Prevnar 20 (PCV20) Unknown Completed [facility] FluAD Quad SD FluAD Quad SD Unknown Completed [facility] FLUZONE HIGH DOSE OVER 65 FLUZONE HIGH DOSE OVER 65 Unknown Completed [facility] Prevnar 20 (PCV20) Prevnar 20 (PCV20) Unknown Completed [facility] FluAD Quad SD FluAD Quad SD Unknown Completed [facility] FLUZONE HIGH DOSE OVER 65 FLUZONE HIGH DOSE OVER 65 Unknown Completed [facility] Prevnar 20 (PCV20) Prevnar 20 (PCV20) Unknown Completed [facility] FluAD Quad SD FluAD Quad SD Unknown Completed [facility] FLUZONE HIGH DOSE OVER 65 FLUZONE HIGH DOSE OVER 65 Unknown Completed [facility] Prevnar 20 (PCV20) Prevnar 20 (PCV20) Unknown Completed [facility] FluAD Quad SD FluAD Quad SD Unknown Completed [facility] FLUZONE HIGH DOSE OVER 65 FLUZONE HIGH DOSE OVER 65 Unknown Completed [facility] Prevnar 20 (PCV20) Prevnar 20 (PCV20) Unknown Completed [facility] FluAD Quad SD FluAD Quad SD Unknown Completed [facility] FLUZONE HIGH DOSE OVER 65 FLUZONE HIGH DOSE OVER 65 Unknown Completed [facility] Prevnar 20 (PCV20) Prevnar 20 (PCV20) Unknown Completed [facility] FluAD Quad SD FluAD Quad SD Unknown Completed [facility] FLUZONE HIGH DOSE OVER 65 FLUZONE HIGH DOSE OVER 65 Unknown Completed [facility] Prevnar 20 (PCV20) Prevnar 20 (PCV20) Unknown Completed [facility] Fluad (aIIV4) - SDS - 0.5mL Fluad (aIIV4) - SDS - 0.5mL Unknown Completed [facility] FLUZONE HIGH DOSE OVER 65 FLUZONE HIGH DOSE OVER 65 Unknown Completed [facility] Prevnar 20 (PCV20) Prevnar 20 (PCV20) Unknown Completed [facility] Fluad (aIIV4) - SDS - 0.5mL Fluad (aIIV4) - SDS - 0.5mL Unknown Completed [facility] FLUZONE HIGH DOSE OVER 65 FLUZONE HIGH DOSE OVER 65 Unknown Completed [facility] Prevnar 20 (PCV20) Prevnar 20 (PCV20) Unknown Completed [facility] Fluad (aIIV4) - SDS - 0.5mL Fluad (aIIV4) - SDS - 0.5mL Unknown Completed [facility] FLUZONE HIGH DOSE OVER 65 FLUZONE HIGH DOSE OVER 65 Unknown Completed [facility] Prevnar 20 (PCV20) Prevnar 20 (PCV20) Unknown Completed [facility] Fluad (aIIV4) - SDS - 0.5mL Fluad (aIIV4) - SDS - 0.5mL Unknown Completed [facility] FLUZONE HIGH DOSE OVER 65 FLUZONE HIGH DOSE OVER 65 Unknown Completed [facility] Prevnar 20 (PCV20) Prevnar 20 (PCV20) Unknown Completed [facility] Fluad (aIIV4) - SDS - 0.5mL Fluad (aIIV4) - SDS - 0.5mL Unknown Completed [facility] FLUZONE HIGH DOSE OVER 65 FLUZONE HIGH DOSE OVER 65 Unknown Completed [facility] Vital Signs Vital Name Observation Time Observation Value Comments S ource height 2023-01-27 14:30:00 65 [in_i] Commo n [facility] weight 2023-01-27 14:30:00 182.6 [lb_av] Co mmon [facility] temperature 2023-01-27 14:30:00 97.2 [degF] Com [facility] bmi 2023-01-27 14:30:00 30.38 kg/m2 Comm on [facility] oximetry 2023-01-27 14:30:00 97 % Commo n [facility] respiratory rate 2023-01-27 14:30:00 17 /min Common [facility] blood pressure systolic 2023-01-27 14:30:00 119 mm[Hg] [facility] blood pressure diastolic 2023-01-27 14:30:00 67 mm[Hg] Common [facility] height 2023-01-08 14:00:00 65 [in_i] Commo n [facility] weight 2023-01-08 14:00:00 182.8 [lb_av] Co on [facility] temperature 2023-01-08 14:00:00 98.1 [degF] Com mon [facility] bmi 2023-01-08 14:00:00 30.42 kg/m2 Comm on [facility] oximetry 2023-01-08 14:00:00 98 % Commo n [facility] respiratory rate 2023-01-08 14:00:00 17 /min Common [facility] blood pressure systolic 2023-01-08 14:00:00 132 mm[Hg] Common [facility] blood pressure diastolic 2023-01-08 14:00:00 71 mm[Hg] Common [facility] height 2022-12-16 15:30:00 65 [in_i] Commo n [facility] weight 2022-12-16 15:30:00 183 [lb_av] Comm on [facility] temperature 2022-12-16 15:30:00 98 [degF] Comm on [facility] bmi 2022-12-16 15:30:00 30.45 kg/m2 Comm on [facility] oximetry 2022-12-16 15:30:00 97 % Commo n [facility] respiratory rate 2022-12-16 15:30:00 18 /min Common [facility] blood pressure systolic 2022-12-16 15:30:00 134 mm[Hg] Common Spiri t [facility] blood pressure diastolic 2022-12-16 15:30:00 66 mm[Hg] [facility] height 2022-11-06 14:20:00 65 [in_i] Commo n [facility] weight 2022-11-06 14:20:00 181.4 [lb_av] Co mmon [facility] temperature 2022-11-06 14:20:00 97.3 [degF] Com mon [facility] bmi 2022-11-06 14:20:00 30.18 kg/m2 Comm on [facility] oximetry 2022-11-06 14:20:00 98 % Commo n [facility] respiratory rate 2022-11-06 14:20:00 18 /min [facility] blood pressure systolic 2022-11-06 14:20:00 130 mm[Hg] Common Spiri t [facility] blood pressure diastolic 2022-11-06 14:20:00 71 mm[Hg] [facility] height 2022-10-11 14:00:00 65 [in_i] Commo n [facility] weight 2022-10-11 14:00:00 182.6 [lb_av] Co mmon [facility] temperature 2022-10-11 14:00:00 97.3 [degF] Com mon [facility] bmi 2022-10-11 14:00:00 30.38 kg/m2 Comm on [facility] oximetry 2022-10-11 14:00:00 97 % Commo n [facility] respiratory rate 2022-10-11 14:00:00 16 /min [facility] blood pressure systolic 2022-10-11 14:00:00 105 mm[Hg] Common [facility] blood pressure diastolic 2022-10-11 14:00:00 65 mm[Hg] Common [facility] height 2022-09-17 08:20:00 65 [in_i] Commo n [facility] weight 2022-09-17 08:20:00 179.6 [lb_av] Co on [facility] temperature 2022-09-17 08:20:00 97.2 [degF] Com [facility] bmi 2022-09-17 08:20:00 29.88 kg/m2 Comm on [facility] oximetry 2022-09-17 08:20:00 98 % Commo n [facility] respiratory rate 2022-09-17 08:20:00 16 /min [facility] blood pressure systolic 2022-09-17 08:20:00 129 mm[Hg] Common [facility] blood pressure diastolic 2022-09-17 08:20:00 68 mm[Hg] Common [facility] height 2022-09-10 08:00:00 65 [in_i] Commo n [facility] weight 2022-09-10 08:00:00 183.2 [lb_av] Co mmon [facility] temperature 2022-09-10 08:00:00 97.5 [degF] Com [facility] bmi 2022-09-10 08:00:00 30.48 kg/m2 Comm on [facility] oximetry 2022-09-10 08:00:00 97 % Commo n [facility] respiratory rate 2022-09-10 08:00:00 17 /min Common [facility] blood pressure systolic 2022-09-10 08:00:00 125 mm[Hg] Common Spiri t [facility] blood pressure diastolic 2022-09-10 08:00:00 71 mm[Hg] [facility] height 2022-08-08 15:20:00 65 [in_i] Commo n [facility] weight 2022-08-08 15:20:00 182.8 [lb_av] Co mmon [facility] temperature 2022-08-08 15:20:00 96.7 [degF] Com mon [facility] bmi 2022-08-08 15:20:00 30.42 kg/m2 Comm on [facility] oximetry 2022-08-08 15:20:00 97 % Commo n [facility] respiratory rate 2022-08-08 15:20:00 17 /min Common [facility] blood pressure systolic 2022-08-08 15:20:00 128 mm[Hg] [facility] blood pressure diastolic 2022-08-08 15:20:00 73 mm[Hg] [facility] height 2022-08-08 15:30:00 65 [in_i] Commo n [facility] weight 2022-08-08 15:30:00 182.8 [lb_av] Co mmon [facility] temperature 2022-08-08 15:30:00 96.7 [degF] Com mon [facility] bmi 2022-08-08 15:30:00 30.42 kg/m2 Comm on [facility] oximetry 2022-08-08 15:30:00 97 % Commo n [facility] respiratory rate 2022-08-08 15:30:00 17 /min Common [facility] blood pressure systolic 2022-08-08 15:30:00 128 mm[Hg] Common Spiri t [facility] blood pressure diastolic 2022-08-08 15:30:00 73 mm[Hg] [facility] height 2022-07-01 11:20:00 65 [in_i] Commo n [facility] weight 2022-07-01 11:20:00 178 [lb_av] Comm on [facility] bmi 2022-07-01 11:20:00 29.62 kg/m2 Comm on [facility] height 2022-06-05 10:00:00 65 [in_i] Commo n [facility] weight 2022-06-05 10:00:00 185.2 [lb_av] Co mmon [facility] temperature 2022-06-05 10:00:00 97.9 [degF] Com [facility] bmi 2022-06-05 10:00:00 30.82 kg/m2 Comm on [facility] oximetry 2022-06-05 10:00:00 97 % Commo n [facility] respiratory rate 2022-06-05 10:00:00 18 /min Common [facility] blood pressure systolic 2022-06-05 10:00:00 122 mm[Hg] [facility] blood pressure diastolic 2022-06-05 10:00:00 67 mm[Hg] Common [facility] height 2022-04-29 14:50:00 65 [in_i] Commo n [facility] weight 2022-04-29 14:50:00 183.2 [lb_av] Co mmon [facility] temperature 2022-04-29 14:50:00 96.5 [degF] Com [facility] bmi 2022-04-29 14:50:00 30.48 kg/m2 Comm on [facility] oximetry 2022-04-29 14:50:00 97 % Commo n [facility] respiratory rate 2022-04-29 14:50:00 17 /min Common [facility] blood pressure systolic 2022-04-29 14:50:00 127 mm[Hg] Common Spiri t [facility] blood pressure diastolic 2022-04-29 14:50:00 67 mm[Hg] [facility] height 2022-03-27 14:00:00 65 [in_i] Commo n [facility] weight 2022-03-27 14:00:00 180.6 [lb_av] Co mmon [facility] temperature 2022-03-27 14:00:00 97.7 [degF] Com mon [facility] bmi 2022-03-27 14:00:00 30.05 kg/m2 Comm on [facility] oximetry 2022-03-27 14:00:00 97 % Commo n [facility] respiratory rate 2022-03-27 14:00:00 17 /min Common [facility] blood pressure systolic 2022-03-27 14:00:00 132 mm[Hg] [facility] blood pressure diastolic 2022-03-27 14:00:00 69 mm[Hg] [facility] height 2022-02-12 14:00:00 65 [in_i] Commo n [facility] weight 2022-02-12 14:00:00 180.4 [lb_av] Co mmon [facility] temperature 2022-02-12 14:00:00 97.3 [degF] Com mon [facility] bmi 2022-02-12 14:00:00 30.02 kg/m2 Comm on [facility] oximetry 2022-02-12 14:00:00 97 % Commo n [facility] respiratory rate 2022-02-12 14:00:00 17 /min [facility] blood pressure systolic 2022-02-12 14:00:00 138 mm[Hg] Common Spiri t [facility] blood pressure diastolic 2022-02-12 14:00:00 67 mm[Hg] [facility] height 2022-01-28 15:40:00 65 [in_i] Commo n [facility] weight 2022-01-28 15:40:00 181.5 [lb_av] Co mmon [facility] temperature 2022-01-28 15:40:00 97.2 [degF] Com mon [facility] bmi 2022-01-28 15:40:00 30.2 kg/m2 Commo n [facility] oximetry 2022-01-28 15:40:00 98 % Commo n [facility] respiratory rate 2022-01-28 15:40:00 17 /min [facility] blood pressure systolic 2022-01-28 15:40:00 125 mm[Hg] [facility] blood pressure diastolic 2022-01-28 15:40:00 72 mm[Hg] [facility] height 2022-01-17 13:40:00 65 [in_i] Commo n [facility] weight 2022-01-17 13:40:00 186.1 [lb_av] Co mmon [facility] temperature 2022-01-17 13:40:00 97.4 [degF] Com mon [facility] bmi 2022-01-17 13:40:00 30.97 kg/m2 Comm on [facility] oximetry 2022-01-17 13:40:00 96 % Commo n [facility] respiratory rate 2022-01-17 13:40:00 17 /min Common [facility] blood pressure systolic 2022-01-17 13:40:00 125 mm[Hg] [facility] blood pressure diastolic 2022-01-17 13:40:00 64 mm[Hg] [facility] height 2022-01-03 10:00:00 65 [in_i] Commo n [facility] weight 2022-01-03 10:00:00 185 [lb_av] Comm on [facility] temperature 2022-01-03 10:00:00 98 [degF] Comm on [facility] bmi 2022-01-03 10:00:00 30.78 kg/m2 Comm on [facility] height 2021-12-10 10:40:00 65 [in_i] Commo n [facility] weight 2021-12-10 10:40:00 186.0 [lb_av] Co mmon [facility] temperature 2021-12-10 10:40:00 98.1 [degF] Com mon [facility] bmi 2021-12-10 10:40:00 30.95 kg/m2 Comm on [facility] oximetry 2021-12-10 10:40:00 87 % Commo n [facility] respiratory rate 2021-12-10 10:40:00 17 /min Common [facility] blood pressure systolic 2021-12-10 10:40:00 127 mm[Hg] Common [facility] blood pressure diastolic 2021-12-10 10:40:00 65 mm[Hg] Common [facility] height 2021-11-22 09:40:00 65 [in_i] Commo n [facility] weight 2021-11-22 09:40:00 185.1 [lb_av] Co mmon [facility] temperature 2021-11-22 09:40:00 97.7 [degF] Com mon [facility] bmi 2021-11-22 09:40:00 30.8 kg/m2 Commo n [facility] oximetry 2021-11-22 09:40:00 96 % Commo n [facility] respiratory rate 2021-11-22 09:40:00 17 /min Common [facility] blood pressure systolic 2021-11-22 09:40:00 126 mm[Hg] [facility] blood pressure diastolic 2021-11-22 09:40:00 70 mm[Hg] [facility] height 2021-10-30 14:30:00 65 [in_i] Commo n [facility] weight 2021-10-30 14:30:00 191.1 [lb_av] Co mmon [facility] temperature 2021-10-30 14:30:00 98.1 [degF] Com mon [facility] bmi 2021-10-30 14:30:00 31.8 kg/m2 Commo n [facility] oximetry 2021-10-30 14:30:00 96 % Commo n [facility] respiratory rate 2021-10-30 14:30:00 17 /min [facility] blood pressure systolic 2021-10-30 14:30:00 127 mm[Hg] [facility] blood pressure diastolic 2021-10-30 14:30:00 60 mm[Hg] [facility] height 2021-10-17 14:15:00 65 [in_i] Commo n [facility] weight 2021-10-17 14:15:00 185 [lb_av] Comm on [facility] temperature 2021-10-17 14:15:00 98.4 [degF] Com mon [facility] bmi 2021-10-17 14:15:00 30.78 kg/m2 Comm on [facility] oximetry 2021-10-17 14:15:00 96 % Commo n [facility] respiratory rate 2021-10-17 14:15:00 16 /min Common [facility] blood pressure systolic 2021-10-17 14:15:00 137 mm[Hg] [facility] blood pressure diastolic 2021-10-17 14:15:00 67 mm[Hg] Common [facility] height 2021-09-19 10:15:00 65 [in_i] Commo n [facility] weight 2021-09-19 10:15:00 186.6 [lb_av] Co [facility] temperature 2021-09-19 10:15:00 97.3 [degF] Com mon [facility] bmi 2021-09-19 10:15:00 31.05 kg/m2 Comm on [facility] oximetry 2021-09-19 10:15:00 92 % Commo n [facility] respiratory rate 2021-09-19 10:15:00 16 /min [facility] blood pressure systolic 2021-09-19 10:15:00 136 mm[Hg] [facility] blood pressure diastolic 2021-09-19 10:15:00 72 mm[Hg] Common [facility] height 2021-08-27 16:00:00 65 [in_i] Commo n [facility] weight 2021-08-27 16:00:00 183.4 [lb_av] Co mmon [facility] bmi 2021-08-27 16:00:00 30.52 kg/m2 Comm on [facility] height 2021-08-09 17:00:00 65 [in_i] Commo n [facility] weight 2021-08-09 17:00:00 183.4 [facility] 17:00:00 98.6 [degF] Com mon [facility] bmi 2021-08-09 17:00:00 30.52 kg/m2 Comm on [facility] oximetry 2021-08-09 17:00:00 100 % Commo n [facility] respiratory rate 2021-08-09 17:00:00 18 /min Common [facility] blood pressure systolic 2021-08-09 17:00:00 130 mm[Hg] [facility] blood pressure diastolic 2021-08-09 17:00:00 62 mm[Hg] [facility] height 2021-06-27 13:30:00 65 [in_i] Commo n [facility] weight 2021-06-27 13:30:00 180 [lb_av] Comm on [facility] temperature 2021-06-27 13:30:00 98 [degF] Comm on [facility] bmi 2021-06-27 13:30:00 29.95 kg/m2 Comm on [facility] height 2021-05-24 11:20:00 65 [in_i] Commo n [facility] weight 2021-05-24 11:20:00 178 [lb_av] Comm on [facility] temperature 2021-05-24 11:20:00 98 [degF] Comm on [facility] bmi 2021-05-24 11:20:00 29.62 kg/m2 Comm on [facility] blood pressure systolic 2021-05-24 11:20:00 135 mm[Hg] [facility] blood pressure diastolic 2021-05-24 11:20:00 86 mm[Hg] [facility] height 2021-04-23 13:40:00 65 [in_i] Commo n [facility] weight 2021-04-23 13:40:00 178 [lb_av] Comm on [facility] temperature 2021-04-23 13:40:00 97.7 [degF] Com mon [facility] bmi 2021-04-23 13:40:00 29.62 kg/m2 Comm on [facility] oximetry 2021-04-23 13:40:00 97 % Commo n [facility] respiratory rate 2021-04-23 13:40:00 18 /min Common [facility] blood pressure systolic 2021-04-23 13:40:00 130 mm[Hg] [facility] blood pressure diastolic 2021-04-23 13:40:00 72 mm[Hg] [facility] height 2021-03-23 09:30:00 65 [in_i] Commo n [facility] weight 2021-03-23 09:30:00 178 [lb_av] Comm on [facility] bmi 2021-03-23 09:30:00 29.62 kg/m2 Comm on [facility] height 2021-02-22 15:20:00 65 [in_i] Commo n [facility] weight 2021-02-22 15:20:00 178 [lb_av] Comm on [facility] temperature 2021-02-22 15:20:00 98 [degF] Comm on [facility] bmi 2021-02-22 15:20:00 29.62 kg/m2 Comm on [facility] blood pressure systolic 2021-02-22 15:20:00 134 mm[Hg] [facility] blood pressure diastolic 2021-02-22 15:20:00 75 mm[Hg] Common [facility] height 2021-02-15 09:00:00 65 [in_i] Commo n [facility] weight 2021-02-15 09:00:00 178 [lb_av] Comm on [facility] temperature 2021-02-15 09:00:00 97.5 [degF] Com mon [facility] bmi 2021-02-15 09:00:00 29.62 kg/m2 Comm on [facility] height 2021-01-25 09:40:00 65 [in_i] Commo n [facility] weight 2021-01-25 09:40:00 178 [lb_av] Comm on [facility] temperature 2021-01-25 09:40:00 98 [degF] Comm on [facility] bmi 2021-01-25 09:40:00 29.62 kg/m2 Comm on [facility] blood pressure systolic 2021-01-25 09:40:00 132 mm[Hg] [facility] blood pressure diastolic 2021-01-25 09:40:00 76 mm[Hg] [facility] height 2020-12-26 13:20:00 65 [in_i] Commo n [facility] weight 2020-12-26 13:20:00 182.5 [lb_av] Co [facility] temperature 2020-12-26 13:20:00 98.5 [degF] Com [facility] bmi 2020-12-26 13:20:00 30.37 kg/m2 Comm on [facility] oximetry 2020-12-26 13:20:00 96 % Commo n [facility] blood pressure systolic 2020-12-26 13:20:00 140 mm[Hg] [facility] blood pressure diastolic 2020-12-26 13:20:00 65 mm[Hg] [facility] height 2020-12-21 13:40:00 65 [in_i] Commo n [facility] weight 2020-12-21 13:40:00 182.5 [lb_av] Co on [facility] temperature 2020-12-21 13:40:00 97.1 [degF] Com [facility] bmi 2020-12-21 13:40:00 30.37 kg/m2 Comm on [facility] oximetry 2020-12-21 13:40:00 97 % Commo n [facility] respiratory rate 2020-12-21 13:40:00 17 /min Common [facility] blood pressure systolic 2020-12-21 13:40:00 122 mm[Hg] [facility] blood pressure diastolic 2020-12-21 13:40:00 66 mm[Hg] [facility] height 2020-12-05 10:00:00 65 [in_i] Commo n [facility] weight 2020-12-05 10:00:00 182.5 [lb_av] Co mmon [facility] temperature 2020-12-05 10:00:00 97.4 [degF] Com mon [facility] bmi 2020-12-05 10:00:00 30.37 kg/m2 Comm on [facility] height 2020-10-26 16:00:00 65 [in_i] Commo n [facility] weight 2020-10-26 16:00:00 182.5 [lb_av] Co mmon [facility] temperature 2020-10-26 16:00:00 97.2 [degF] Com [facility] bmi 2020-10-26 16:00:00 30.37 kg/m2 Comm on [facility] oximetry 2020-10-26 16:00:00 95 % Commo n [facility] respiratory rate 2020-10-26 16:00:00 17 /min [facility] blood pressure systolic 2020-10-26 16:00:00 125 mm[Hg] [facility] blood pressure diastolic 2020-10-26 16:00:00 63 mm[Hg] [facility] height 2020-05-16 15:00:00 65 [in_i] Commo n [facility] weight 2020-05-16 15:00:00 195.7 [lb_av] Co mmon [facility] temperature 2020-05-16 15:00:00 97.2 [degF] Com [facility] bmi 2020-05-16 15:00:00 32.56 kg/m2 Comm on [facility] oximetry 2020-05-16 15:00:00 100 % Commo n [facility] respiratory rate 2020-05-16 15:00:00 17 /min [facility] blood pressure systolic 2020-05-16 15:00:00 128 mm[Hg] [facility] blood pressure diastolic 2020-05-16 15:00:00 60 mm[Hg] [facility] height 2020-04-27 15:20:00 65 [in_i] Commo n [facility] weight 2020-04-27 15:20:00 190.0 [lb_av] Co mmon [facility] temperature 2020-04-27 15:20:00 97.0 [degF] Com mon [facility] bmi 2020-04-27 15:20:00 31.61 kg/m2 Comm on [facility] oximetry 2020-04-27 15:20:00 97 % Commo n [facility] respiratory rate 2020-04-27 15:20:00 16 /min Common [facility] blood pressure systolic 2020-04-27 15:20:00 135 mm[Hg] Common [facility] blood pressure diastolic 2020-04-27 15:20:00 73 mm[Hg] Common [facility] height 2020-04-13 14:40:00 65 [in_i] Commo n [facility] weight 2020-04-13 14:40:00 193.6 [lb_av] Co mmon [facility] temperature 2020-04-13 14:40:00 96.9 [degF] Com mon [facility] bmi 2020-04-13 14:40:00 32.21 kg/m2 Comm on [facility] oximetry 2020-04-13 14:40:00 97 % Commo n [facility] respiratory rate 2020-04-13 14:40:00 16 /min Common [facility] blood pressure systolic 2020-04-13 14:40:00 135 mm[Hg] Common [facility] blood pressure diastolic 2020-04-13 14:40:00 65 mm[Hg] Common [facility] height 2020-03-30 10:45:00 65 [in_i] Commo n [facility] weight 2020-03-30 10:45:00 191.2 [lb_av] Co mmon [facility] temperature 2020-03-30 10:45:00 97 [degF] Comm on [facility] bmi 2020-03-30 10:45:00 31.81 kg/m2 Comm on [facility] oximetry 2020-03-30 10:45:00 99 % Commo n [facility] respiratory rate 2020-03-30 10:45:00 18 /min Common [facility] blood pressure systolic 2020-03-30 10:45:00 145 mm[Hg] [facility] blood pressure diastolic 2020-03-30 10:45:00 71 mm[Hg] [facility] height 2020-03-28 14:20:00 65 [in_i] Commo n [facility] weight 2020-03-28 14:20:00 192.5 [lb_av] Co mmon [facility] temperature 2020-03-28 14:20:00 97.0 [degF] Com mon [facility] bmi 2020-03-28 14:20:00 32.03 kg/m2 Comm on [facility] oximetry 2020-03-28 14:20:00 98 % Commo n [facility] respiratory rate 2020-03-28 14:20:00 16 /min Common [facility] blood pressure systolic 2020-03-28 14:20:00 133 mm[Hg] [facility] blood pressure diastolic 2020-03-28 14:20:00 67 mm[Hg] [facility] height 2020-03-16 16:30:00 65 [in_i] Commo n [facility] weight 2020-03-16 16:30:00 192.7 [lb_av] Co mmon [facility] temperature 2020-03-16 16:30:00 97.2 [degF] Com mon [facility] bmi 2020-03-16 16:30:00 32.06 kg/m2 Comm on [facility] oximetry 2020-03-16 16:30:00 100 % Commo n [facility] respiratory rate 2020-03-16 16:30:00 17 /min Common [facility] blood pressure systolic 2020-03-16 16:30:00 137 mm[Hg] Common [facility] blood pressure diastolic 2020-03-16 16:30:00 70 mm[Hg] [facility] BP Systolic 2021-12-05 13:19:00 BP Diastolic [...] 2016-09-27 16:23:00 Procedures Procedure Date / Time Performed Performing Clinicia n Source 15997 Ecg Routine Ecg W/leas t 12 Lds W/i r 2016-10-23 00:00:00 00014 Ecg Routine Ecg W/leas t 12 Lds W/i r 2016-07-09 00:00:00 Plan of Care Planned Activity Planned Date Details Comments Source Goal Plan of Care Note [code = 74404-4] Goal Plan of Care Note [code = 52825-0] Goal Plan of Care Note [code = 39719-8] Goal Plan of Care Note [code = 47935-1] Goal Plan of Care Note [code = 71645-4] Goal Plan of Care Note [code = 31621-6] Goal Plan of Care Note [code = 49014-4] Goal Plan of Care Note [code = 31160-0] Goal Plan of Care Note [code = 67755-5] Goal Plan of Care Note [code = 92313-3] Goal Plan of Care Note [code = 96564-8] Goal Plan of Care Note [code = 54502-3] Goal Plan of Care Note [code = 08312-1] Goal Plan of Care Note [code = 33464-0] Goal Plan of Care Note [code = 56948-6] Goal Plan of Care Note [code = 39508-1] Goal Plan of Care Note [code = 48376-6] Goal Plan of Care Note [code = 06402-3] Goal Plan of Care Note [code = 68409-0] Goal Plan of Care Note [code = 41789-9] Goal Plan of Care Note [code = 92586-5] Goal Plan of Care Note [code = 60685-6] Goal Plan of Care Note [code = 05362-6] Goal Plan of Care Note [code = 56644-9] Goal Plan of Care Note [code = 24459-1] Goal Plan of Care Note [code = 09364-2] Goal Plan of Care Note [code = 47907-2] Goal Plan of Care Note [code = 30855-8] Goal Plan of Care Note [code = 21261-7] Goal Plan of Care Note [code = 42393-9] Goal Plan of Care Note [code = 72477-6] Goal Plan of Care Note [code = 20002-5] Goal Plan of Care Note [code = 67616-3] Goal Plan of Care Note [code = 01486-9] Goal Plan of Care Note [code = 53603-6] Goal Plan of Care Note [code = 83721-5] Goal Plan of Care Note [code = 15341-6] Goal Plan of Care Note [code = 04950-6] Goal Plan of Care Note [code = 22544-6] Goal Plan of Care Note [code = 29087-8] Goal Plan of Care Note [code = 36222-7] Goal Plan of Care Note [code = 77926-7] Goal Plan of Care Note [code = 00132-0] Goal Plan of Care Note [code = 20846-2] Goal Plan of Care Note [code = 16626-5] Goal Plan of Care Note [code = 23473-1] Goal Plan of Care Note [code = 16150-4] Goal Plan of Care Note [code = 51347-2] Goal Plan of Care Note [code = 64290-5] Goal Plan of Care Note [code = 38384-6] Goal Plan of Care Note [code = 29522-2] Goal Plan of Care Note [code = 77125-8] Encounters Start Date/Time End Date/Time Encounter Type Admission Type Attending Clinicians Care Facility Care Department Encounter ID Source 2023-02-12 14:00:00 Outpatient Miller, Tonio [facility] [id number] [facility] 2022-11-05 07:41:00 Outpatient Miller, Tonio [facility] [id number] [facility] 2022-09-27 09:47:00 Outpatient Miller, Tonio [facility] [id number] [facility] 2022-06-03 09:39:00 Outpatient Miller, Tonio [facility] [id number] [facility] 2022-04-26 14:39:00 Outpatient Miller, Tonio [facility] [id number] [facility] 2022-04-25 13:11:00 Outpatient Miller, Tonio [facility] [id number] [facility] 2022-01-17 13:47:01 Outpatient Miller, Tonio [facility] [id number] [facility] 2022-01-07 08:42:27 Outpatient [facility] [id number] [facility] 2021-10-30 15:01:00 Outpatient Miller, Tonio [facility] [id number] [facility] 2021-10-04 08:34:01 Outpatient Miller, Tonio [facility] [id number] [facility] 2021-07-18 14:19:22 Outpatient Miller, Tonio [facility]C ST[facility] [id number] [facility] 2021-07-18 13:45:16 Outpatient Miller, Tonio STL[facility]C ST[facility] [id number] [facility] 2021-07-18 12:59:49 Outpatient Miller, Tonio STL[facility]C ST[facility] [id number] [facility] 2021-07-18 12:31:12 Outpatient Miller, Tonio [facility]C ST[facility] [id number] [facility] 2021-07-18 12:29:23 Outpatient Miller, Tonio [facility]C ST[facility] [id number] [facility] 2021-07-18 12:24:50 Outpatient Miller, Tonio STL[facility]C ST[facility] [id number] [facility] 2021-07-18 12:24:31 Outpatient Miller, Tonio [facility]C ST[facility] [id number] [facility] 2021-07-18 12:23:16 Outpatient Miller, Tonio STL[facility]C ST[facility] [id number] [facility] 2021-07-18 12:09:35 Outpatient Miller, Tonio [facility]C ST[facility] [id number] [facility] 2021-07-18 12:08:47 Outpatient Miller, Tonio [facility]C ST[facility] [id number] [facility] 2021-07-18 12:08:21 Outpatient Miller, Tonio [facility]C ST[facility] [id number] [facility] 2021-07-18 12:07:39 Outpatient Miller, Tonio STL[facility]C ST[facility] [id number] [facility] 2021-07-18 11:57:35 Outpatient Miller, Tonio STL[facility]C ST[facility] [id number] [facility] 2021-07-18 11:55:10 Outpatient Miller, Tonio STL[facility]C STLC [id number] [facility] 2021-07-18 11:25:38 Outpatient Miller, Tonio STLMLC STL[facility]C [id number] [facility] 2021-07-18 11:24:24 Outpatient Miller, Tonio STL[facility]C STL[facility]C [id number] [facility] 2021-07-18 11:20:51 Outpatient Miller, Tonio STLMLC STLC [id number] [facility] 2021-07-18 11:19:05 Outpatient Miller, Tonio [facility] ST[facility] [id number] [facility] 2021-07-18 11:17:38 Outpatient Miller, Tonio ST[facility] STLC [id number] [facility] 2021-07-18 11:10:37 Outpatient Miller, Tonio [facility] STLC [id number] [facility] 2021-07-18 11:07:32 Outpatient Miller, Tonio ST[facility] STLC [id number] [facility] 2021-07-18 11:07:07 Outpatient Miller, Tonio ST[facility] STLC [id number] [facility] 2021-07-18 11:06:50 Outpatient Miller, Tonio [facility] [id number] [facility] 2021-07-18 11:04:55 Outpatient Miller, Tonio [facility] STLC [id number] [facility] 2021-07-18 11:00:24 Outpatient Miller, Tonio ST[facility] STLC [id number] [facility] 2023-06-28 12:27:31 2023-06-28 12:27:31 Outpatient [facility] [id number] [facility] 2023-03-04 00:00:00 2023-03-04 00:00:00 (TEL) STLMLC STLMLC [id number] [facility] 2023-02-20 00:00:00 2023-02-20 00:00:00 (TEL) STLMLC STLMLC [id number] [facility] 2023-02-18 00:00:00 2023-02-18 00:00:00 (TEL) STLMLC STLMLC [id number] [facility] 2023-02-13 00:00:00 2023-02-13 00:00:00 (TEL) STLMLC STLMLC [id number] [facility] 2023-01-27 00:00:00 2023-01-27 00:00:00 OFFICE VISIT ESTAB PT LEVEL 4 STLMLC STLMLC [id number] [facility] 2023-01-09 00:00:00 2023-01-09 00:00:00 (TEL) STLMLC STLMLC [id number] [facility] 2023-01-08 00:00:00 2023-01-08 00:00:00 OFFICE VISIT ESTAB PT LEVEL 2 STLMLC STLMLC [id number] [facility] 2023-01-06 13:50:58 2023-01-06 13:50:58 Outpatient SFA [facility] [id number] [facility] 2022-12-16 00:00:00 2022-12-16 00:00:00 (TEL) STLMLC STLMLC [id number] [facility] 2022-12-16 00:00:00 2022-12-16 00:00:00 OFFICE VISIT ESTAB PT LEVEL 2 STLMLC STLMLC [id number] [facility] 2022-12-09 10:01:45 2022-12-09 10:01:45 Outpatient SFA SFA [id number] [facility] 2022-11-06 00:00:00 2022-11-06 00:00:00 OFFICE VISIT ESTAB PT LEVEL 4 STLMLC STLMLC [id number] [facility] 2022-10-23 00:00:00 2022-10-23 00:00:00 (TEL) STLMLC STLMLC [id number] [facility] 2022-10-16 00:00:00 2022-10-16 00:00:00 (TEL) STLMLC STLMLC [id number] [facility] 2022-10-14 00:00:00 2022-10-14 00:00:00 (TEL) STLMLC STLMLC [id number] [facility] 2022-10-11 00:00:00 2022-10-11 00:00:00 (TEL) STLMLC STLMLC [id number] [facility] 2022-10-11 00:00:00 2022-10-11 00:00:00 OFFICE VISIT ESTAB PT LEVEL 4 STLMLC STLMLC [id number] [facility] 2022-09-26 00:00:00 2022-09-26 00:00:00 (TEL) STLMLC STLMLC [id number] [facility] 2022-09-18 00:00:00 2022-09-18 00:00:00 (TEL) STLMLC STLMLC [id number] [facility] 2022-09-17 00:00:00 2022-09-17 00:00:00 OFFICE VISIT ESTAB PT LEVEL 3 STLMLC STLMLC [id number] [facility] 2022-09-10 00:00:00 2022-09-10 00:00:00 OFFICE VISIT ESTAB PT LEVEL 3 STLMLC STLMLC [id number] [facility] 2022-09-09 00:00:00 2022-09-09 00:00:00 (TEL) STLMLC STLMLC [id number] [facility] 2022-08-08 00:00:00 2022-08-08 00:00:00 OFFICE VISIT ESTAB PT LEVEL 4 STLMLC STLMLC [id number] [facility] 2022-08-08 00:00:00 2022-08-08 00:00:00 (TEL) STLMLC STLMLC [id number] [facility] 2022-08-08 00:00:00 2022-08-08 00:00:00 WELCOME TO MEDICARE PREV PHY EXAM STLMLC STLMLC [id number] [facility] 2022-07-23 00:00:00 2022-07-23 00:00:00 (INJ) Injection STLMLC STLMLC [id number] [facility] 2022-07-01 00:00:00 2022-07-01 00:00:00 (TEL) STLMLC STLMLC [id number] [facility] 2022-07-01 00:00:00 2022-07-01 00:00:00 OFFICE VISIT EST PT LEVEL 3 STLMLC STLMLC [id number] [facility] 2022-06-18 00:00:00 2022-06-18 00:00:00 (TEL) STLMLC STLMLC [id number] [facility] 2022-06-05 00:00:00 2022-06-05 00:00:00 OFFICE VISIT ESTAB PT LEVEL 4 STLMLC STLMLC [id number] [facility] 2022-05-13 00:00:00 2022-05-13 00:00:00 (TEL) STLMLC STLMLC [id number] [facility] 2022-05-08 00:00:00 2022-05-08 00:00:00 (TEL) STLMLC STLMLC [id number] [facility] 2022-04-29 00:00:00 2022-04-29 00:00:00 OFFICE VISIT ESTAB PT LEVEL 4 STLMLC STLMLC [id number] [facility] 2022-04-17 14:12:29 2022-04-17 14:12:29 Outpatient [facility] [id number] Rock Reynaga 2022-04-17 00:00:00 2022-04-17 00:00:00 (TEL) STLMLC STLMLC [id number] [facility] 2022-04-17 00:00:00 2022-04-17 00:00:00 Outpatient Visit [id number] 2022-04-10 14:47:35 2022-04-10 14:47:35 Outpatient SFA SFA [id number] Rock Reynaga 2022-04-10 00:00:00 2022-04-10 00:00:00 (TEL) STLMLC STLMLC [id number] [facility] 2022-03-27 00:00:00 2022-03-27 00:00:00 OFFICE VISIT ESTAB PT LEVEL 2 STLMLC STLMLC [id number] [facility] 2022-02-12 00:00:00 2022-02-12 00:00:00 OFFICE VISIT ESTAB PT LEVEL 2 STLMLC STLMLC [id number] [facility] 2022-01-28 00:00:00 2022-01-28 00:00:00 OFFICE VISIT ESTAB PT LEVEL 4 STLMLC STLMLC [id number] [facility] 2022-01-17 00:00:00 2022-01-17 00:00:00 OFFICE VISIT ESTAB PT LEVEL 2 STLMLC STLMLC [id number] [facility] 2022-01-03 00:00:00 2022-01-03 00:00:00 OFFICE VISIT ESTAB PT LEVEL 2 STLMLC STLMLC [id number] [facility] 2022-01-03 00:00:00 2022-01-03 00:00:00 (TEL) STLMLC STLMLC [id number] [facility] 2022-01-02 00:00:00 2022-01-02 00:00:00 (TEL) STLMLC STLMLC [id number] [facility] 2021-12-13 00:00:00 2021-12-13 00:00:00 (TEL) STLMLC STLMLC [id number] [facility] 2021-12-11 00:00:00 2021-12-11 00:00:00 (TEL) STLMLC STLMLC [id number] [facility] 2021-12-10 00:00:00 2021-12-10 00:00:00 OFFICE VISIT EST PT LEVEL 3 STLMLC STLMLC [id number] [facility] 2021-12-09 00:00:00 2021-12-09 00:00:00 (TEL) STLMLC STLMLC [id number] [facility] 2021-12-04 00:00:00 2021-12-04 00:00:00 (TEL) STLMLC STLMLC [id number] [facility] 2021-11-22 00:00:00 2021-11-22 00:00:00 OFFICE VISIT ESTAB PT LEVEL 2 STLMLC STLMLC [id number] [facility] 2021-11-07 00:00:00 2021-11-07 00:00:00 (TEL) STLMLC STLMLC [id number] [facility] 2021-10-30 00:00:00 2021-10-30 00:00:00 OFFICE VISIT ESTAB PT LEVEL 4 STLMLC STLMLC [id number] [facility] 2021-10-23 00:00:00 2021-10-23 00:00:00 (TEL) STLMLC STLMLC [id number] [facility] 2021-10-17 00:00:00 2021-10-17 00:00:00 OFFICE VISIT ESTAB PT LEVEL 2 STLMLC STLMLC [id number] [facility] 2021-10-02 00:00:00 2021-10-02 00:00:00 (TEL) STLMLC STLMLC [id number] [facility] 2021-09-19 00:00:00 2021-09-19 00:00:00 OFFICE VISIT EST PT LEVEL 3 STLMLC STLMLC [id number] [facility] 2021-08-30 00:00:00 2021-08-30 00:00:00 (INJ) Injection STLMLC STLMLC [id number] [facility] 2021-08-27 00:00:00 2021-08-27 00:00:00 OL DIG E/M SVC 11-20 MIN STLMLC STLMLC [id number] [facility] 2021-08-20 00:00:00 2021-08-20 00:00:00 (TEL) STLMLC STLMLC [id number] [facility] 2021-08-10 00:00:00 2021-08-10 00:00:00 (TEL) STLMLC STLMLC [id number] [facility] 2021-08-09 00:00:00 2021-08-09 00:00:00 OFFICE VISIT ESTAB PT LEVEL 4 STLMLC STLMLC [id number] [facility] 2021-07-25 00:00:00 2021-07-25 00:00:00 (INJ) Injection STLMLC STLMLC [id number] [facility] 2021-07-11 00:00:00 2021-07-11 00:00:00 (TEL) STLMLC STLMLC [id number] [facility] 2021-06-27 00:00:00 2021-06-27 00:00:00 OFFICE VISIT ESTAB PT LEVEL 2 STLMLC STLMLC [id number] [facility] 2021-05-31 00:00:00 2021-05-31 00:00:00 (INJ) Injection STLMLC STLMLC [id number] [facility] 2021-05-24 00:00:00 2021-05-24 00:00:00 OFFICE VISIT ESTAB PT LEVEL 4 STLMLC STLMLC [id number] [facility] 2021-04-23 00:00:00 2021-04-23 00:00:00 (NV) Nurse Visit STLMLC STLMLC [id number] [facility] 2021-04-16 00:00:00 2021-04-16 00:00:00 (TEL) STLMLC STLMLC [id number] [facility] 2021-03-23 00:00:00 2021-03-23 00:00:00 OFFICE VISIT ESTAB PT LEVEL 2 STLMLC STLMLC [id number] [facility] 2021-03-22 00:00:00 2021-03-22 00:00:00 (TEL) STLMLC STLMLC [id number] [facility] 2021-02-22 00:00:00 2021-02-22 00:00:00 OFFICE VISIT ESTAB PT LEVEL 4 STLMLC STLMLC [id number] [facility] 2021-02-15 00:00:00 2021-02-15 00:00:00 OFFICE VISIT ESTAB PT LEVEL 1 STLMLC STLMLC [id number] [facility] 2021-01-25 00:00:00 2021-01-25 00:00:00 OFFICE VISIT ESTAB PT LEVEL 4 STLMLC STLMLC [id number] [facility] 2021-01-02 00:00:00 2021-01-02 00:00:00 OFFICE VISIT ESTAB PT LEVEL 1 STLMLC STLMLC [id number] [facility] 2021-01-02 00:00:00 2021-01-02 00:00:00 (TEL) STLMLC STLMLC [id number] [facility] 2021-01-01 00:00:00 2021-01-01 00:00:00 (TEL) STLMLC STLMLC [id number] [facility] 2021-01-01 00:00:00 2021-01-01 00:00:00 (TEL) STLMLC STLMLC [id number] [facility] 2020-12-28 00:00:00 2020-12-28 00:00:00 (TEL) STLMLC STLMLC [id number] [facility] 2020-12-27 00:00:00 2020-12-27 00:00:00 (TEL) STLMLC STLMLC [id number] [facility] 2020-12-26 00:00:00 2020-12-26 00:00:00 OFFICE VISIT EST PT LEVEL 3 STLMLC STLMLC [id number] [facility] 2020-12-21 00:00:00 2020-12-21 00:00:00 OFFICE VISIT ESTAB PT LEVEL 1 STLMLC STLMLC [id number] [facility] 2020-12-20 00:00:00 2020-12-20 00:00:00 (TEL) STLMLC STLMLC [id number] [facility] 2020-12-05 00:00:00 2020-12-05 00:00:00 OFFICE VISIT ESTAB PT LEVEL 1 STLMLC STLMLC [id number] [facility] 2020-12-04 00:00:00 2020-12-04 00:00:00 (TEL) STLMLC STLMLC [id number] [facility] 2020-10-26 00:00:00 2020-10-26 00:00:00 OFFICE VISIT ESTAB PT LEVEL 4 STLMLC STLMLC [id number] [facility] 2020-10-20 00:00:00 2020-10-20 00:00:00 (TEL) STLMLC STLMLC [id number] [facility] 2020-10-18 00:00:00 2020-10-18 00:00:00 (TEL) STLMLC STLMLC [id number] [facility] 2020-10-16 06:39:00 2020-10-16 08:43:00 Hospital Encounter Tyler Henson [facility] 1.2.840.114 350.1.13.10 4.2.7.2.686 [id number] 2020-10-16 07:51:00 2020-10-16 08:13:00 Surgery [facility] 1.2.840.114 350.1.13.10 4.2.7.2.686 [id number] 2020-10-16 00:00:00 2020-10-16 00:00:00 Orders Only Doctor Unassigned, [place] [facility] 1.2.840.114 350.1.13.10 4.2.7.2.686 [id number] 2020-10-13 09:49:03 2020-10-13 10:04:03 Laboratory Only Only, Adc Test [facility] 1.2.840.114 350.1.13.10 4.2.7.2.686 [id number] 2020-10-13 00:00:00 2020-10-13 00:00:00 Orders Only Doctor Unassigned, [place] [facility] 1.2.840.114 350.1.13.10 4.2.7.2.686 [id number] 2020-10-05 00:00:00 2020-10-05 00:00:00 (TEL) STLMLC STLMLC [id number] [facility] 2020-10-03 00:00:00 2020-10-03 00:00:00 (TEL) STLMLC STLMLC [id number] [facility] 2020-10-02 06:53:00 2020-10-02 09:27:00 Hospital Encounter Tyler Henson [facility] 1.2.840.114 350.1.13.10 4.2.7.2.686 [id number] 2020-10-02 07:51:00 2020-10-02 08:16:00 Surgery [facility] 1.2.840.114 350.1.13.10 4.2.7.2.686 [id number] 2020-10-02 00:00:00 2020-10-02 00:00:00 Orders Only Doctor Unassigned, [place] [facility] 1.2.840.114 350.1.13.10 4.2.7.2.686 [id number] 2020-09-29 10:08:41 2020-09-29 10:23:41 Laboratory Only Only, Adc Test [facility] 1.2.840.114 350.1.13.10 4.2.7.2.686 [id number] 2020-09-27 14:35:00 2020-09-27 14:50:00 Occupational Therapist Home Based Visit Pob, 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 [facility] 1.2.840.114 350.1.13.10 4.2.7.2.686 [id number] 2020-09-27 00:00:00 2020-09-27 00:00:00 Orders Only Doctor Unassigned, [place] [facility] 1.2.840.114 350.1.13.10 4.2.7.2.686 [id number] 2020-07-07 10:30:00 2020-07-07 10:45:00 Office Visit Yash oG [facility] 1.2.840.114 350.1.13.10 4.2.7.2.686 [id number] 2020-06-27 00:00:00 2020-06-27 00:00:00 (TEL) STLMLC STLMLC [id number] [facility] 2020-05-29 00:00:00 2020-05-29 00:00:00 (TEL) STLMLC STLMLC [id number] [facility] 2020-05-17 00:00:00 2020-05-17 00:00:00 (TEL) STLMLC STLMLC [id number] [facility] 2020-05-16 00:00:00 2020-05-16 00:00:00 OFFICE VISIT ESTAB PT LEVEL 4 STLMLC STLMLC [id number] [facility] 2020-04-27 00:00:00 2020-04-27 00:00:00 OFFICE VISIT ESTAB PT LEVEL 4 STLMLC STLMLC [id number] [facility] 2020-04-26 00:00:00 2020-04-26 00:00:00 (TEL) STLMLC STLMLC [id number] [facility] 2020-04-13 00:00:00 2020-04-13 00:00:00 OFFICE VISIT ESTAB PT LEVEL 4 STLMLC STLMLC [id number] [facility] 2020-04-06 00:00:00 2020-04-06 00:00:00 (TEL) STLMLC STLMLC [id number] [facility] 2020-03-30 00:00:00 2020-03-30 00:00:00 OFFICE VISIT ESTAB PT LEVEL 2 STLMLC STLMLC [id number] [facility] 2020-03-28 00:00:00 2020-03-28 00:00:00 OFFICE VISIT EST PT LEVEL 3 STLMLC STLMLC [id number] [facility] 2020-03-23 00:00:00 2020-03-23 00:00:00 (TEL) STLMLC STLMLC [id number] [facility] 2020-03-16 00:00:00 2020-03-16 00:00:00 OFFICE VISIT ESTAB PT LEVEL 4 STLMLC STLMLC [id number] [facility] 2020-03-02 16:00:00 2020-03-02 16:00:00 [facility] [id number] [facility] 2020-03-01 16:58:00 2020-03-01 16:58:00 [facility] [place] [facility] [id number] [facility] 2020-02-29 09:32:00 2020-02-29 09:32:00 [facility] [place] [facility] [id number] [facility] 2020-02-19 11:43:00 2020-02-19 11:43:[address] [facility] [address] [facility] [id number] [facility] 2020-02-18 14:30:00 2020-02-18 14:30:00 [facility] [id number] [facility] 2020-02-17 11:30:00 2020-02-17 11:30:00 [facility] [id number] [facility] 2019-12-24 09:32:00 2019-12-24 09:32:[address] [facility] [address] [id number] [facility] 2019-12-13 11:45:00 2019-12-13 11:45:[address] [facility] [address] [facility] [id number] [facility] 2019-12-01 16:54:00 2019-12-01 16:54:[address] [facility] [address] [facility] [id number] [facility] 2019-11-25 16:55:00 2019-11-25 16:55:[address] [facility] [address] [facility] [id number] [facility] 2019-11-22 11:38:00 2019-11-22 11:38:[address] [facility] [address] [facility] [id number] [facility] 2019-11-19 16:25:00 2019-11-19 16:25:[address] [facility] [facility] [address] [facility] [id number] [facility] 2019-11-18 16:23:00 2019-11-18 16:23:[address] [facility] [facility] [address] [facility] [id number] [facility] 2019-11-18 10:45:00 2019-11-18 10:45:[address] [facility] [facility] [address] [facility] [id number] [facility] 2019-11-08 14:04:00 2019-11-08 14:04:[address] [facility] [address] [facility] [address] [facility] [id number] [facility] 2019-11-05 14:36:00 2019-11-05 14:36:[address] [facility] [address] [facility] [place] [facility] [id number] [facility] 2019-11-01 11:35:00 2019-11-01 11:35:[address] [facility] [address] [facility] [id number] [facility] 2019-10-27 13:30:00 2019-10-27 13:30:[address] [facility] [address] [facility] [id number] [facility] 2019-10-26 08:59:00 2019-10-26 08:59:[address] [facility] [address] [facility] [id number] [facility] 2019-10-25 08:37:00 2019-10-25 08:37:[address] [facility] [address] [facility] [id number] [facility] 2019-10-14 15:00:00 2019-10-14 15:00:[address] [facility] [address] [facility] [id number] [facility] 2019-10-12 09:50:00 2019-10-12 09:50:[address] [facility] [address] [facility] [id number] [facility] 2019-09-17 08:05:00 2019-09-17 08:05:[address] [facility] [address] [facility] [id number] [facility] 2019-08-27 14:30:00 2019-08-27 14:30:00 [facility] [facility] [id number] [facility] 2019-08-19 11:00:00 2019-08-19 11:00:[address] [facility] [address] [id number] [facility] 2019-08-05 09:15:00 2019-08-05 09:15:[address] [facility] [address] [id number] [facility] 2019-08-03 14:40:00 2019-08-03 14:40:[address] [facility] [address] [facility] [address] [facility] [id number] [facility] 2019-07-29 13:23:00 2019-07-29 13:23:[address] [facility] [address] [facility] [id number] [facility] 2019-07-19 13:59:00 2019-07-19 13:59:[address] [facility] [facility] [address] [facility] [id number] [facility] 2019-07-14 13:18:00 2019-07-14 13:18:[address] [facility] [address] [facility] [id number] [facility] 2019-07-06 10:00:00 2019-07-06 10:00:[address] [facility] [address] [facility] [id number] [facility] 2019-05-17 13:30:00 2019-05-17 13:30:[address] [facility] [address] [facility] [id number] [facility] 2019-03-30 15:00:00 2019-03-30 15:00:00 [facility] [place] [facility] [id number] [facility] 2019-03-23 08:47:00 2019-03-23 08:47:00 [facility] [place] [facility] [id number] [facility] 2019-03-22 16:57:00 2019-03-22 16:57:[address] [facility] [address] [facility] [id number] [facility] 2019-03-17 09:45:00 2019-03-17 09:45:[address] [facility] [facility] [address] [facility] [place] [facility] [id number] [facility] 2019-03-04 11:00:00 2019-03-04 11:00:00 [facility] [place] [facility] [id number] [facility] 2019-03-01 11:00:00 2019-03-01 11:00:[address] [facility] [address] [facility] [place] [facility] [id number] [facility] 2019-02-23 13:15:00 2019-02-23 13:15:[address] [facility] [address] [facility] [facility] [id number] [facility] 2019-02-15 09:54:00 2019-02-15 09:54:00 [facility] [place] [facility] [id number] [facility] 2019-02-08 13:00:00 2019-02-08 13:00:00 [facility] [place] [facility] [id number] [facility] 2019-02-01 14:15:00 2019-02-01 14:15:00 [facility] [place] [facility] [id number] [facility] 2019-01-27 10:00:00 2019-01-27 10:00:[address] [facility] [address] [place] [facility] [id number] [facility] 2018-12-08 13:00:00 2018-12-08 13:00:[address] [facility] [address] [facility] [place] [facility] [id number] [facility] 2018-12-07 16:17:00 2018-12-07 16:17:[address] [facility] [address] [facility] [place] [facility] [id number] [facility] 2018-12-03 09:15:00 2018-12-03 09:15:[address] [facility] [address] [facility] [id number] [facility] 2018-10-19 16:30:00 2018-10-19 16:30:[address] [facility] [address] [place] [facility] [id number] [facility] 2018-10-01 13:52:00 2018-10-01 13:52:[address] [facility] [address] [place] [facility] [id number] [facility] 2018-09-14 08:34:00 2018-09-14 08:34:[address] [facility] [address] [facility] [id number] [facility] 2018-09-10 14:45:00 2018-09-10 14:45:[address] [facility] [address] [place] [facility] [id number] [facility] 2018-08-26 16:26:00 2018-08-26 16:26:[address] [facility] [address] [facility] [id number] [facility] 2018-08-25 10:00:00 2018-08-25 10:00:[address] [facility] [address] [place] [facility] [id number] [facility] 2018-08-19 08:22:00 2018-08-19 08:22:[address] [facility] [address] [place] [facility] [id number] [facility] 2018-07-16 13:00:00 2018-07-16 13:00:[address] [facility] [address] [place] [facility] [id number] [facility] 2018-03-25 10:15:00 2018-03-25 10:15:[address] [facility] [address] [place] [facility] [id number] [facility] 2018-02-03 09:02:00 2018-02-03 09:02:00 [facility] [address] [facility] [id number] [facility] 2018-01-23 10:00:00 2018-01-23 10:00:00 [facility] [id number] [facility] 2017-12-23 10:30:00 2017-12-23 10:30:00 [facility] [id number] [facility] 2017-12-16 15:15:00 2017-12-16 15:15:00 Outpatient [facility] [id number] [facility] 2017-11-04 10:00:00 2017-11-04 10:00:00 Outpatient [facility] [id number] [facility] 2016-05-14 03:16:00 2016-05-14 03:16:00 Outpatient Raju_P MMG MMG [id number] 0831 [facility] Results Test Description Test Time Test Comments Results Result Co mments Source HEMOGLOBIN [id number] 00:00:00* Test Item Value Reference Range Interpretation Comme nts HEMOGLOBIN A1c (test code = 4548-4) 6.5 % See_Comment H [Automated messa ge] The system which generated this result transmitted reference range: 4.2-5.6 %. The reference range was not used to interpret this result as normal/abnormal. TSH REFLEX TO FREE [id number] 00:00:00* Test Item Value Reference Range Interpretation Comme nts TSH REFLEX TO FREE T4 (test code = 04425-2) 1.710 UIU/ML See_Comment [Automated messa ge] The system which generated this result transmitted reference range: 0.400-4.100 UIU/ML. The reference range was not used to interpret this result as normal/abnormal. LIPID PANEL WITH REFLEX DIRECT [id number] 00:00:00* Test Item Value Reference Range Interpretation Comme nts CALC LDL CHOL (test code = 65998-3) (NOTE) MG/DL See_Comment [Automated messa ge] The system which generated this result transmitted reference range: <100 MG/DL. The reference range was not used to interpret this result as normal/abnormal. CHOLESTEROL (test code = 2093-3) 296 MG/DL See_Comment H [Automated [employer]] The system which generated this result transmitted reference range: <200 MG/DL. The reference range was not used to interpret this result as normal/abnormal. HDL CHOLESTEROL (test code = 2085-9) 42 MG/DL See_Comment [Automated [employer]] The system which generated this result transmitted reference range: >39 MG/DL. The reference range was not used to interpret this result as normal/abnormal. RISK RATIO LDL/HDL (test code = 63416-8) (NOTE) RATIO See_Comment [Automated message] The system which generated this result transmitted reference range: <3.22 RATIO. The reference range was not used to interpret this result as normal/abnormal. TRIGLYCERIDES (test code = 2571-8) 609 MG/DL See_Comment H [Automated [employer]] The system which generated this result transmitted reference range: <150 MG/DL. The reference range was not used to interpret this result as normal/abnormal. ALBUMIN/CREATININE RATIO, RANDOM [id number] 00:00:00* Test Item Value Reference Range Interpretation Comme nts ALBUMIN, URINE, RANDOM (test code = 04016-6) 5.3 MG/DL NOT ESTAB MG/DL CALC ALBUMIN/CREAT, RND (test code = 67601-1) 12 MG/G See_Comment [Automated [employer]] The system which generated this result transmitted reference range: <30 MG/G. The reference range was not used to interpret this result as normal/abnormal. CREATININE, URINE, CONC. (test code = 2161-8) 439.7 MG/DL NOT ESTAB MG/DL COMPREHENSIVE METABOLIC [id number] 00:00:00* Test Item Value Reference Range Interpretation Comme nts ALBUMIN (test code = 1751-7) 4.1 G/DL See_Comment [Automated [employer]] The system which generated this result transmitted reference range: 3.5-5.2 G/DL. The reference range was not used to interpret this result as normal/abnormal. ALKALINE PHOSPHATASE (test code = 6768-6) 119 U/L See_Comment [Automated message] The system which generated this result transmitted reference range: 40-142 U/L. The reference range was not used to interpret this result as normal/abnormal. BILIRUBIN, TOTAL (test code = 1975-2) 0.8 MG/DL See_Comment [Automated message] The system which generated this result transmitted reference range: <=1.2 MG/DL. The reference range was not used to interpret this result as normal/abnormal. BUN (test code = 3094-0) 14 MG/DL See_Comment [Automated messa ge] The system which generated this result transmitted reference range: 8-23 MG/DL. The reference range was not used to interpret this result as normal/abnormal. CALCIUM (test code = 92648-8) 9.5 MG/DL See_Comment [Automated messa ge] The system which generated this result transmitted reference range: 8.5-10.5 MG/DL. The reference range was not used to interpret this result as normal/abnormal. CALC A/G RATIO (test code = 1759-0) 1.3 RATIO See_Comment [Automated messa ge] The system which generated this result transmitted reference range: 1.0-2.6 RATIO. The reference range was not used to interpret this result as normal/abnormal. CALC BUN/CREAT (test code = 3097-3) 16 RATIO See_Comment [Automated messa ge] The system which generated this result transmitted reference range: 6-28 RATIO. The reference range was not used to interpret this result as normal/abnormal. CALC GLOBULIN (test code = 16186-1) 3.1 G/DL See_Comment [Automated messa ge] The system which generated this result transmitted reference range: 1.9-3.7 G/DL. The reference range was not used to interpret this result as normal/abnormal. CARBON DIOXIDE (test code = 1963-8) 23 MEQ/L See_Comment [Automated messa ge] The system which generated this result transmitted reference range: 19-31 MEQ/L. The reference range was not used to interpret this result as normal/abnormal. CHLORIDE (test code = 2075-0) 110 MEQ/L See_Comment H [Automated messa ge] The system which generated this result transmitted reference range: 95-107 MEQ/L. The reference range was not used to interpret this result as normal/abnormal. CREATININE (test code = 2160-0) 0.86 MG/DL See_Comment [Automated messa ge] The system which generated this result transmitted reference range: 0.60-1.30 MG/DL. The reference range was not used to interpret this result as normal/abnormal. eGFR (2020 CKD-EPI) (test code = 96397-9) 74 ML/MIN/1.73 See_Comment [Automated messa ge] The system which generated this result transmitted reference range: >60 ML/MIN/1.73. The reference range was not used to interpret this result as normal/abnormal. GLUCOSE (test code = 1558-6) 95 MG/DL See_Comment [Automated messa ge] The system which generated this result transmitted reference range: 70-99 MG/DL. The reference range was not used to interpret this result as normal/abnormal. POTASSIUM (test code = 2823-3) 4.1 MEQ/L See_Comment [Automated messa ge] The system which generated this result transmitted reference range: 3.5-5.4 MEQ/L. The reference range was not used to interpret this result as normal/abnormal. PROTEIN, TOTAL (test code = 2885-2) 7.2 G/DL See_Comment [Automated messa ge] The system which generated this result transmitted reference range: 6.1-8.3 G/DL. The reference range was not used to interpret this result as normal/abnormal. AST (test code = 1920-8) 36 U/L See_Comment [Automated messa ge] The system which generated this result transmitted reference range: 9-40 U/L. The reference range was not used to interpret this result as normal/abnormal. ALT (test code = 1742-6) 25 U/L See_Comment [Automated messa ge] The system which generated this result transmitted reference range: 5-40 U/L. The reference range was not used to interpret this result as normal/abnormal. SODIUM (test code = 2951-2) 146 MEQ/L See_Comment [Automated messa ge] The system which generated this result transmitted reference range: 133-146 MEQ/L. The reference range was not used to interpret this result as normal/abnormal. CBC W/AUTO [id number] 00:00:00* Test Item Value Reference Range Interpretation Comme nts NUCLEATED RBCS (test code = 89201-3) 0.0 /100 WBC'S See_Comment [Automated messa ge] The system which generated this result transmitted reference range: 0.0 /100 WBC'S. The reference range was not used to interpret this result as normal/abnormal. ABSOLUTE EOSINOPHILS (test code = 35838-7) 0.11 K/UL See_Comment [Automated messa ge] The system which generated this result transmitted reference range: 0.00-0.50 K/UL. The reference range was not used to interpret this result as normal/abnormal. ABSOLUTE LYMPHOCYTES (test code = 30515-1) 2.85 K/UL See_Comment [Automated messa ge] The system which generated this result transmitted reference range: 1.00-4.00 K/UL. The reference range was not used to interpret this result as normal/abnormal. ABSOLUTE MONOCYTES (test code = 05831-3) 0.44 K/UL See_Comment [Automated messa ge] The system which generated this result transmitted reference range: 0.20-1.00 K/UL. The reference range was not used to interpret this result as normal/abnormal. ABSOLUTE NEUTROPHILS (test code = 98085-2) 3.33 K/UL See_Comment [Automated messa ge] The system which generated this result transmitted reference range: 1.50-7.50 K/UL. The reference range was not used to interpret this result as normal/abnormal. BASOPHILS (test code = 39502-7) 0.3 % EOSINOPHILS (test code = 09313-1) 1.6 % HEMATOCRIT (test code = 24370-6) 39.9 % See_Comment [Automated messa ge] The system which generated this result transmitted reference range: 34.0-45.0 %. The reference range was not used to interpret this result as normal/abnormal. HEMOGLOBIN (test code = 718-7) 13.7 G/DL See_Comment [Automated messa ge] The system which generated this result transmitted reference range: 11.5-15.5 G/DL. The reference range was not used to interpret this result as normal/abnormal. LYMPHOCYTES (test code = 23270-8) 42.2 % MCH (test code = 48723-8) 31.4 PG See_Comment [Automated messa ge] The system which generated this result transmitted reference range: 25.0-33.0 PG. The reference range was not used to interpret this result as normal/abnormal. MCHC (test code = 46218-5) 34.3 G/DL See_Comment [Automated messa ge] The system which generated this result transmitted reference range: 31.0-36.0 G/DL. The reference range was not used to interpret this result as normal/abnormal. MCV (test code = 63830-6) 91.3 fL See_Comment [Automated messa ge] The system which generated this result transmitted reference range: 80.0-99.0 fL. The reference range was not used to interpret this result as normal/abnormal. MONOCYTES (test code = 63617-5) 6.5 % NEUTROPHILS (test code = 24744-4) 49.3 % PLATELET COUNT (test code = 47243-9) 163 K/UL See_Comment [Automated messa ge] The system which generated this result transmitted reference range: 130-400 K/UL. The reference range was not used to interpret this result as normal/abnormal. RBC (test code = 01927-3) 4.37 M/UL See_Comment [Automated messa ge] The system which generated this result transmitted reference range: 3.80-5.40 M/UL. The reference range was not used to interpret this result as normal/abnormal. RDW (test code = 74768-7) 13.8 % See_Comment [Automated messa ge] The system which generated this result transmitted reference range: 11.5-15.0 %. The reference range was not used to interpret this result as normal/abnormal. WBC (test code = 82366-6) 6.8 K/UL See_Comment [Automated messa ge] The system which generated this result transmitted reference range: 3.5-11.0 K/UL. The reference range was not used to interpret this result as normal/abnormal. HEMOGLOBIN [id number] 00:00:00* Test Item Value Reference Range Interpretation Comme nts HEMOGLOBIN A1c (test code = 4548-4) 6.8 % See_Comment H [Automated messa ge] The system which generated this result transmitted reference range: 4.2-5.6 %. The reference range was not used to interpret this result as normal/abnormal. TSH REFLEX TO FREE [id number] 00:00:00* Test Item Value Reference Range Interpretation Comme nts TSH REFLEX TO FREE T4 (test code = 12027-2) 0.851 UIU/ML See_Comment [Automated messa ge] The system which generated this result transmitted reference range: 0.400-4.100 UIU/ML. The reference range was not used to interpret this result as normal/abnormal. LIPID PANEL WITH REFLEX DIRECT [id number] 00:00:00* Test Item Value Reference Range Interpretation Comme nts CALC LDL CHOL (test code = 51456-9) 58 MG/DL See_Comment [Automated messa ge] The system which generated this result transmitted reference range: <100 MG/DL. The reference range was not used to interpret this result as normal/abnormal. CHOLESTEROL (test code = 2093-3) 156 MG/DL See_Comment [Automated [employer]] The system which generated this result transmitted reference range: <200 MG/DL. The reference range was not used to interpret this result as normal/abnormal. HDL CHOLESTEROL (test code = 2085-9) 51 MG/DL See_Comment [Automated [employer]] The system which generated this result transmitted reference range: >39 MG/DL. The reference range was not used to interpret this result as normal/abnormal. RISK RATIO LDL/HDL (test code = 01886-7) 1.14 RATIO See_Comment [Automated message] The system which generated this result transmitted reference range: <3.22 RATIO. The reference range was not used to interpret this result as normal/abnormal. TRIGLYCERIDES (test code = 2571-8) 386 MG/DL See_Comment H [Automated messa ge] The system which generated this result transmitted reference range: <150 MG/DL. The reference range was not used to interpret this result as normal/abnormal. ALBUMIN/CREATININE RATIO, RANDOM [id number] 00:00:00* Test Item Value Reference Range Interpretation Comme nts ALBUMIN, URINE, RANDOM (test code = 27917-3) 2.0 MG/DL NOT ESTAB MG/DL CALC ALBUMIN/CREAT, RND (test code = 72002-3) 6 MG/G See_Comment [Automated messa ge] The system which generated this result transmitted reference range: <30 MG/G. The reference range was not used to interpret this result as normal/abnormal. CREATININE, URINE, CONC. (test code = 2161-8) 326.2 MG/DL NOT ESTAB MG/DL COMPREHENSIVE METABOLIC [id number] 00:00:00* Test Item Value Reference Range Interpretation Comme nts ALBUMIN (test code = 1751-7) 4.1 G/DL See_Comment [Automated messa ge] The system which generated this result transmitted reference range: 3.5-5.2 G/DL. The reference range was not used to interpret this result as normal/abnormal. ALKALINE PHOSPHATASE (test code = 6768-6) 79 U/L See_Comment [Automated message] The system which generated this result transmitted reference range: 40-142 U/L. The reference range was not used to interpret this result as normal/abnormal. BILIRUBIN, TOTAL (test code = 1975-2) 1.1 MG/DL See_Comment [Automated message] The system which generated this result transmitted reference range: <=1.2 MG/DL. The reference range was not used to interpret this result as normal/abnormal. BUN (test code = 3094-0) 17 MG/DL See_Comment [Automated messa ge] The system which generated this result transmitted reference range: 8-23 MG/DL. The reference range was not used to interpret this result as normal/abnormal. CALCIUM (test code = 77129-9) 8.9 MG/DL See_Comment [Automated messa ge] The system which generated this result transmitted reference range: 8.5-10.5 MG/DL. The reference range was not used to interpret this result as normal/abnormal. CALC A/G RATIO (test code = 1759-0) 1.6 RATIO See_Comment [Automated messa ge] The system which generated this result transmitted reference range: 1.0-2.6 RATIO. The reference range was not used to interpret this result as normal/abnormal. CALC BUN/CREAT (test code = 3097-3) 20 RATIO See_Comment [Automated messa ge] The system which generated this result transmitted reference range: 6-28 RATIO. The reference range was not used to interpret this result as normal/abnormal. CALC GLOBULIN (test code = 61411-9) 2.6 G/DL See_Comment [Automated messa ge] The system which generated this result transmitted reference range: 1.9-3.7 G/DL. The reference range was not used to interpret this result as normal/abnormal. CARBON DIOXIDE (test code = 1962-8) 23 MEQ/L See_Comment [Automated messa ge] The system which generated this result transmitted reference range: 19-31 MEQ/L. The reference range was not used to interpret this result as normal/abnormal. CHLORIDE (test code = 2075-0) 108 MEQ/L See_Comment H [Automated messa ge] The system which generated this result transmitted reference range: 95-107 MEQ/L. The reference range was not used to interpret this result as normal/abnormal. CREATININE (test code = 2160-0) 0.85 MG/DL See_Comment [Automated messa ge] The system which generated this result transmitted reference range: 0.60-1.30 MG/DL. The reference range was not used to interpret this result as normal/abnormal. eGFR (2020 CKD-EPI) (test code = 58559-0) 76 ML/MIN/1.73 See_Comment [Automated messa ge] The system which generated this result transmitted reference range: >60 ML/MIN/1.73. The reference range was not used to interpret this result as normal/abnormal. GLUCOSE (test code = 1558-6) 98 MG/DL See_Comment [Automated messa ge] The system which generated this result transmitted reference range: 70-99 MG/DL. The reference range was not used to interpret this result as normal/abnormal. POTASSIUM (test code = 2823-3) 4.0 MEQ/L See_Comment [Automated messa ge] The system which generated this result transmitted reference range: 3.5-5.4 MEQ/L. The reference range was not used to interpret this result as normal/abnormal. PROTEIN, TOTAL (test code = 2885-2) 6.7 G/DL See_Comment [Automated messa ge] The system which generated this result transmitted reference range: 6.1-8.3 G/DL. The reference range was not used to interpret this result as normal/abnormal. AST (test code = 1920-8) 36 U/L See_Comment [Automated messa ge] The system which generated this result transmitted reference range: 9-40 U/L. The reference range was not used to interpret this result as normal/abnormal. ALT (test code = 1742-6) 26 U/L See_Comment [Automated messa ge] The system which generated this result transmitted reference range: 5-40 U/L. The reference range was not used to interpret this result as normal/abnormal. SODIUM (test code = 2951-2) 143 MEQ/L See_Comment [Automated messa ge] The system which generated this result transmitted reference range: 133-146 MEQ/L. The reference range was not used to interpret this result as normal/abnormal. CBC W/AUTO [id number] 00:00:00* Test Item Value Reference Range Interpretation Comme nts NUCLEATED RBCS (test code = 42706-5) 0.0 /100 WBC'S See_Comment [Automated messa ge] The system which generated this result transmitted reference range: 0.0 /100 WBC'S. The reference range was not used to interpret this result as normal/abnormal. ABSOLUTE EOSINOPHILS (test code = 55514-5) 0.00 K/UL See_Comment [Automated messa ge] The system which generated this result transmitted reference range: 0.00-0.50 K/UL. The reference range was not used to interpret this result as normal/abnormal. ABSOLUTE LYMPHOCYTES (test code = 41895-3) 2.23 K/UL See_Comment [Automated messa ge] The system which generated this result transmitted reference range: 1.00-4.00 K/UL. The reference range was not used to interpret this result as normal/abnormal. ABSOLUTE MONOCYTES (test code = 79267-5) 0.48 K/UL See_Comment [Automated messa ge] The system which generated this result transmitted reference range: 0.20-1.00 K/UL. The reference range was not used to interpret this result as normal/abnormal. ABSOLUTE NEUTROPHILS (test code = 38552-5) 7.20 K/UL See_Comment [Automated messa ge] The system which generated this result transmitted reference range: 1.50-7.50 K/UL. The reference range was not used to interpret this result as normal/abnormal. BASOPHILS (test code = 78480-4) 0.1 % EOSINOPHILS (test code = 24292-1) 0.0 % HEMATOCRIT (test code = 00956-6) 43.7 % See_Comment [Automated messa ge] The system which generated this result transmitted reference range: 34.0-45.0 %. The reference range was not used to interpret this result as normal/abnormal. HEMOGLOBIN (test code = 718-7) 14.7 G/DL See_Comment [Automated messa ge] The system which generated this result transmitted reference range: 11.5-15.5 G/DL. The reference range was not used to interpret this result as normal/abnormal. LYMPHOCYTES (test code = 73316-3) 22.4 % MCH (test code = 85583-1) 30.6 PG See_Comment [Automated messa ge] The system which generated this result transmitted reference range: 25.0-33.0 PG. The reference range was not used to interpret this result as normal/abnormal. MCHC (test code = 17478-3) 33.6 G/DL See_Comment [Automated messa ge] The system which generated this result transmitted reference range: 31.0-36.0 G/DL. The reference range was not used to interpret this result as normal/abnormal. MCV (test code = 80390-6) 91.0 fL See_Comment [Automated messa ge] The system which generated this result transmitted reference range: 80.0-99.0 fL. The reference range was not used to interpret this result as normal/abnormal. MONOCYTES (test code = 82741-6) 4.8 % NEUTROPHILS (test code = 83671-6) 72.3 % PLATELET COUNT (test code = 25264-2) 208 K/UL See_Comment [Automated messa ge] The system which generated this result transmitted reference range: 130-400 K/UL. The reference range was not used to interpret this result as normal/abnormal. RBC (test code = 37590-1) 4.80 M/UL See_Comment [Automated messa ge] The system which generated this result transmitted reference range: 3.80-5.40 M/UL. The reference range was not used to interpret this result as normal/abnormal. RDW (test code = 40657-2) 14.5 % See_Comment [Automated messa ge] The system which generated this result transmitted reference range: 11.5-15.0 %. The reference range was not used to interpret this result as normal/abnormal. WBC (test code = 23749-3) 10.0 K/UL See_Comment [Automated messa ge] The system which generated this result transmitted reference range: 3.5-11.0 K/UL. The reference range was not used to interpret this result as normal/abnormal. HEMOGLOBIN [id number] 00:00:00* Test Item Value Reference Range [facility]ation [facility]EM[facility] A1c (test code = 4548-4) 6.8 % See_Comment H [Automated [employer]] The system which generated this result transmitted reference range: 4.2-5.6 %. The reference range was not used to interpret this result as normal/abnormal. TSH REFLEX TO FREE [id number] 00:00:00* Test Item Value Reference Range [facility]ation [facility]SH REFLEX TO FREE T4 (test code = 15964-7) 0.752 UIU/ML See_Comment [Automated [employer]] The system which generated this result transmitted reference range: 0.400-4.100 UIU/ML. The reference range was not used to interpret this result as normal/abnormal. LIPID PANEL WITH REFLEX DIRECT [id number] 00:00:00* Test Item Value Reference Range Interpretation Comme [facility] CALC LDL CHOL (test code = 29545-0) 73 MG/DL See_Comment [Automated [employer]] The system which generated this result transmitted reference range: <100 MG/DL. The reference range was not used to interpret this result as normal/abnormal. CHOLESTEROL (test code = 2093-3) 164 MG/DL See_Comment [Automated [employer]] The system which generated this result transmitted reference range: <200 MG/DL. The reference range was not used to interpret this result as normal/abnormal. HDL CHOLESTEROL (test code = 2085-9) 72 MG/DL See_Comment [Automated [employer]] The system which generated this result transmitted reference range: >39 MG/DL. The reference range was not used to interpret this result as normal/abnormal. RISK RATIO LDL/HDL (test code = 32603-4) 1.01 RATIO See_Comment [Automated message] The system which generated this result transmitted reference range: <3.22 RATIO. The reference range was not used to interpret this result as normal/abnormal. TRIGLYCERIDES (test code = 2571-8) 108 MG/DL See_Comment [Automated [employer]] The system which generated this result transmitted reference range: <150 MG/DL. The reference range was not used to interpret this result as normal/abnormal. COMPREHENSIVE METABOLIC [id number] 00:00:00* Test Item Value Reference Range Interpretation Comme nts ALBUMIN (test code = 1751-7) 4.7 G/DL See_Comment [Automated messa ge] The system which generated this result transmitted reference range: 3.5-5.2 G/DL. The reference range was not used to interpret this result as normal/abnormal. ALKALINE PHOSPHATASE (test code = 6768-6) 116 U/L See_Comment [Automated message] The system which generated this result transmitted reference range: 40-140 U/L. The reference range was not used to interpret this result as normal/abnormal. BILIRUBIN, TOTAL (test code = 1975-2) 1.3 MG/DL See_Comment H [Automated message] The system which generated this result transmitted reference range: <=1.2 MG/DL. The reference range was not used to interpret this result as normal/abnormal. BUN (test code = 3094-0) 14 MG/DL See_Comment [Automated messa ge] The system which generated this result transmitted reference range: 8-23 MG/DL. The reference range was not used to interpret this result as normal/abnormal. CALCIUM (test code = 82883-6) 10.1 MG/DL See_Comment [Automated messa ge] The system which generated this result transmitted reference range: 8.5-10.5 MG/DL. The reference range was not used to interpret this result as normal/abnormal. CALC A/G RATIO (test code = 1759-0) 1.5 RATIO See_Comment [Automated messa ge] The system which generated this result transmitted reference range: 1.0-2.6 RATIO. The reference range was not used to interpret this result as normal/abnormal. CALC BUN/CREAT (test code = 3097-3) 22 RATIO See_Comment [Automated messa ge] The system which generated this result transmitted reference range: 6-28 RATIO. The reference range was not used to interpret this result as normal/abnormal. CALC GLOBULIN (test code = 21079-8) 3.2 G/DL See_Comment [Automated messa ge] The system which generated this result transmitted reference range: 1.9-3.7 G/DL. The reference range was not used to interpret this result as normal/abnormal. CARBON DIOXIDE (test code = 1962-8) 21 MEQ/L See_Comment [Automated messa ge] The system which generated this result transmitted reference range: 19-31 MEQ/L. The reference range was not used to interpret this result as normal/abnormal. CHLORIDE (test code = 5-0) 108 MEQ/L See_Comment H [Automated messa ge] The system which generated this result transmitted reference range: 95-107 MEQ/L. The reference range was not used to interpret this result as normal/abnormal. CREATININE (test code = 2160-0) 0.65 MG/DL See_Comment [Automated messa ge] The system which generated this result transmitted reference range: 0.60-1.30 MG/DL. The reference range was not used to interpret this result as normal/abnormal. eGFR (2020 CKD-EPI) (test code = 16114-0) 98 ML/MIN/1.73 See_Comment [Automated messa ge] The system which generated this result transmitted reference range: >60 ML/MIN/1.73. The reference range was not used to interpret this result as normal/abnormal. GLUCOSE (test code = 1558-6) 117 MG/DL See_Comment H [Automated messa ge] The system which generated this result transmitted reference range: 70-99 MG/DL. The reference range was not used to interpret this result as normal/abnormal. POTASSIUM (test code = 2823-3) 4.2 MEQ/L See_Comment [Automated messa ge] The system which generated this result transmitted reference range: 3.5-5.4 MEQ/L. The reference range was not used to interpret this result as normal/abnormal. PROTEIN, TOTAL (test code = 2885-2) 7.9 G/DL See_Comment [Automated messa ge] The system which generated this result transmitted reference range: 6.1-8.3 G/DL. The reference range was not used to interpret this result as normal/abnormal. AST (test code = 1920-8) 21 U/L See_Comment [Automated messa ge] The system which generated this result transmitted reference range: 9-40 U/L. The reference range was not used to interpret this result as normal/abnormal. ALT (test code = 1742-6) 27 U/L See_Comment [Automated messa ge] The system which generated this result transmitted reference range: 5-40 U/L. The reference range was not used to interpret this result as normal/abnormal. SODIUM (test code = 2951-2) 144 MEQ/L See_Comment [Automated [employer]] The system which generated this result transmitted reference range: 133-146 MEQ/L. The reference range was not used to interpret this result as normal/abnormal. STREP A [id number] 00:00:00ResultGC AND CHLAMYDIA, AMPLIFIED, URINE 2020-12-11 00:00:00* Test Item Value Reference Range Interpretation Comme nts GONORRHEA, NAAT (test code = 63336) NEGATIVE CHLAMYDIA, NAAT (test code = 75122) NEGATIVE GC AND CHLAMYDIA, AMPLIFIED, [id number] 00:00:00* Test Item Value Reference Range Interpretation Comme nts GONORRHEA, NAAT (test code = 83965) NEGATIVE CHLAMYDIA, NAAT (test code = 70268) NEGATIVE CBC W/AUTO [id number] 00:00:00* Test Item Value Reference Range Interpretation Comme nts WBC (test code = 1001) 6.3 K/UL [...] = 1013) 0.5 % IMMATURE GRANULOCYTES (test code = 1036) 0.2 % NUCLEATED RBCS (test code = 1065) 0.0 /100WBC'S PLATELET COUNT (test code = 1015) 217 K/UL ABSOLUTE NEUTROPHILS (test c ode = 1066) 2.99 K/UL ABSOLUTE LYMPHOCYTES (test c ode = 1067) 2.85 K/UL ABSOLUTE MONOCYTES (test cod e = 1068) 0.37 K/UL ABSOLUTE EOSINOPHILS (test c ode = 1040) 0.08 K/UL ABSOLUTE BASOPHILS (test cod e = 1069) 0.03 K/UL ABS IMMATURE GRANULOCYTES (t est code = 1020) 0.01 K/UL ABS NUCLEATED RBCS (test cod e = 32254) 0.00 K/UL CBC W/AUTO [id number] 00:00:00* Test Item Value Reference Range Interpretation Comme nts WBC (test code = 1001) 6.3 K/UL [...] = 1013) 0.5 % IMMATURE GRANULOCYTES (test code = 1036) 0.2 % NUCLEATED RBCS (test code = 1065) 0.0 /100WBC'S PLATELET COUNT (test code = 1015) 217 K/UL ABSOLUTE NEUTROPHILS (test c ode = 1066) 2.99 K/UL ABSOLUTE LYMPHOCYTES (test c ode = 1067) 2.85 K/UL ABSOLUTE MONOCYTES (test cod e = 1068) 0.37 K/UL ABSOLUTE EOSINOPHILS (test c ode = 1040) 0.08 K/UL ABSOLUTE BASOPHILS (test cod e = 1069) 0.03 K/UL ABS IMMATURE GRANULOCYTES (t est code = 1020) 0.01 K/UL ABS NUCLEATED RBCS (test cod e = 84830) 0.00 K/UL CBC W/AUTO [id number] 00:00:00* Test Item Value Reference Range Interpretation Comme nts WBC (test code = 1001) 6.3 K/UL [...] = 1013) 0.5 % IMMATURE GRANULOCYTES (test code = 1036) 0.2 % NUCLEATED RBCS (test code = 1065) 0.0 /100WBC'S PLATELET COUNT (test code = 1015) 217 K/UL ABSOLUTE NEUTROPHILS (test c ode = 1066) 2.99 K/UL ABSOLUTE LYMPHOCYTES (test c ode = 1067) 2.85 K/UL ABSOLUTE MONOCYTES (test cod e = 1068) 0.37 K/UL ABSOLUTE EOSINOPHILS (test c ode = 1040) 0.08 K/UL ABSOLUTE BASOPHILS (test cod e = 1069) 0.03 K/UL ABS IMMATURE GRANULOCYTES (t est code = 1020) 0.01 K/UL ABS NUCLEATED RBCS (test cod e = 21784) 0.00 K/UL HIV AB/AG COMBO RFLX [id number] 00:00:00* Test Item Value Reference Range Interpretation Comme nts HIV 1/2 4TH GEN, RFLX CONF ( test code = 3514) NON-REACTIVE VAGINAL PATHOGENS DNA [id number] 00:00:00* Test Item Value Reference Range Interpretation Comme nts TUHY SPECIES (test code = ) NEGATIVE G. VAGINALIS (test code = 32983) POSITIVE T. VAGINALIS (test code = 15059) NEGATIVE HIV AB/AG COMBO RFLX [id number] 00:00:00* Test Item Value Reference Range Interpretation Comme nts HIV 1/2 4TH GEN, RFLX CONF ( test code = 351) NON-REACTIVE VAGINAL PATHOGENS DNA [id number] 00:00:00* Test Item Value Reference Range Interpretation Comme nts THUY SPECIES (test code = ) NEGATIVE G. VAGINALIS (test code = 97459) POSITIVE T. VAGINALIS (test code = 61555) NEGATIVE [id number] 00:00:00* Test Item Value Reference Range Interpretation Comme nts RPR RESULT (test code = 3501) NON-REACTIVE RPR TITER (test code = 3500) NOT INDIC. TITER [id number] 00:00:00* Test Item Value Reference Range Interpretation Comme nts RPR RESULT (test code = 3501) NON-REACTIVE RPR TITER (test code = 3500) NOT INDIC. TITER [id number] 00:00:00* Test Item Value Reference Range Interpretation Comme nts RPR RESULT (test code = 3501) NON-REACTIVE RPR TITER (test code = 3500) NOT INDIC. TITER [id number] 00:00:00* Test Item Value Reference Range Interpretation Comme nts TSH, THIRD GENERATION (test code = 2821) 1.090 UIU/ML [id number] 00:00:00* Test Item Value Reference Range Interpretation Comme nts TSH, THIRD GENERATION (test code = 2821) 1.090 UIU/ML [id number] 00:00:00* Test Item Value Reference Range Interpretation Comme nts TSH, THIRD GENERATION (test code = 2821) 1.090 UIU/ML CULTURE, [id number] 00:00:00* Test Item Value Reference Range Interpretation Comme nts CULTURE, URINE (test code = 76197) SPECIMEN NUMBER: [id number] CULTURE, [id number] 00:00:00* Test Item Value Reference Range Interpretation Comme nts CULTURE, URINE (test code = 43945) SPECIMEN NUMBER: [id number] VAGINAL PATHOGENS DNA [id number] 00:00:00* Test Item Value Reference Range Interpretation Comme nts THUY SPECIES (test code = ) NEGATIVE G. VAGINALIS (test code = 81840) POSITIVE T. VAGINALIS (test code = 81547) NEGATIVE VAGINAL PATHOGENS DNA [id number] 00:00:00* Test Item Value Reference Range Interpretation Comme nts THUY SPECIES (test code = ) NEGATIVE G. VAGINALIS (test code = 43333) POSITIVE T. VAGINALIS (test code = 54011) NEGATIVE CBC W/AUTO [id number] 00:00:00* Test Item Value Reference Range Interpretation Comme nts WBC (test code = 1001) 5.1 K/UL [...] code = 1015) 170 K/UL CBC W/AUTO [id number] 00:00:00* Test Item Value Reference Range Interpretation Comme nts WBC (test code = 1001) 5.1 K/UL [...] code = 1015) 170 K/UL CBC W/AUTO [id number] 00:00:00* Test Item Value Reference Range Interpretation Comme nts WBC (test code = 1001) 5.1 K/UL [...] (test code = 1015) 170 K/UL HEMOGLOBIN [id number] 00:00:00* Test Item Value Reference Range Interpretation Comme nts HEMOGLOBIN A1c (test code = 25411) 5.2 % HEMOGLOBIN [id number] 00:00:00* Test Item Value Reference Range Interpretation Comme nts HEMOGLOBIN A1c (test code = 68772) 5.2 % HEMOGLOBIN [id number] 00:00:00* Test Item Value Reference Range Interpretation Comme nts HEMOGLOBIN A1c (test code = 93897) 5.2 % THYROID II PROFILE (T3U, T4, T7, TSH)2016-07-11 00:00:00* Test Item Value Reference Range Interpretation Comme nts T3 UPTAKE (test code = 2817) 27.5 % T4 (THYROXINE) (test code = 2819) 7.1 UG/DL CALCULATED T7 (FTI) (test co de = 2820) 1.95 TSH (test code = 2821) 1.5 UIU/ML THYROID II PROFILE (T3U, T4, T7, TSH)2016-07-11 00:00:00* Test Item Value Reference Range Interpretation Comme nts T3 UPTAKE (test code = 2817) 27.5 % T4 (THYROXINE) (test code = 2819) 7.1 UG/DL CALCULATED T7 (FTI) (test co de = 2820) 1.95 TSH (test code = 2821) 1.5 UIU/ML VITAMIN D, 25 [id number] 00:00:00* Test Item Value Reference Range Interpretation Comme nts VITAMIN D, 25 OH (test code = 4958) 8 NG/ML VITAMIN D, 25 [id number] 00:00:00* Test Item Value Reference Range Interpretation Comme nts VITAMIN D, 25 OH (test code = 4958) 8 NG/ML VAGINAL PATHOGENS DNA PANEL [ADDED]2016-07-11 00:00:00* Test Item Value Reference Range Interpretation Comme nts THUY SPECIES (test code = 66480) NEGATIVE G. VAGINALIS (test code = 18501) NEGATIVE T. VAGINALIS (test code = ) NEGATIVE VAGINAL PATHOGENS DNA PANEL [ADDED]2016-07-11 00:00:00* Test Item Value Reference Range Interpretation Comme nts THUY SPECIES (test code = ) NEGATIVE G. VAGINALIS (test code = ) NEGATIVE T. VAGINALIS (test code = ) NEGATIVE COMPREHENSIVE METABOLIC [id number] 00:00:00* Test Item Value Reference Range Interpretation Comme nts GLUCOSE (test code = 2217) 81 MG/DL BUN (test code = 2208) 14 MG/DL CREATININE (test code = 2214) 0.76 MG/DL eGFR AMER. (test cod e = 45292) 100 ML/MIN/1.73 eGFR NON- AMER. (test code = 72956) 86 ML/MIN/1.73 CALC BUN/CREAT (test code = 2235) 18 RATIO SODIUM (test code = 2231) 143 MEQ/L POTASSIUM (test code = 2228) 3.8 MEQ/L CHLORIDE (test code = 2215) 103 MEQ/L CARBON DIOXIDE (test code = 2206) 22 MEQ/L CALCIUM (test code = 2209) 9.3 MG/DL PROTEIN, TOTAL (test code = 2229) 7.2 G/DL ALBUMIN (test code = 2201) 4.6 G/DL CALC GLOBULIN (test code = 2240) 2.6 G/DL CALC A/G RATIO (test code = 2234) 1.8 RATIO BILIRUBIN, TOTAL (test code = 2207) 1.3 MG/DL ALKALINE PHOSPHATASE (test code = 2204) 82 U/L AST (test code = 2218) 16 U/L ALT (test code = 2219) 12 U/L COMPREHENSIVE METABOLIC [id number] 00:00:00* Test Item Value Reference Range Interpretation Comme nts GLUCOSE (test code = 2217) 81 MG/DL BUN (test code = 2208) 14 MG/DL CREATININE (test code = 2214) 0.76 MG/DL eGFR AMER. (test cod e = 26448) 100 ML/MIN/1.73 eGFR NON- AMER. (test code = 47806) 86 ML/MIN/1.73 CALC BUN/CREAT (test code = 2235) 18 RATIO SODIUM (test code = 2231) 143 MEQ/L POTASSIUM (test code = 2228) 3.8 MEQ/L CHLORIDE (test code = 2215) 103 MEQ/L CARBON DIOXIDE (test code = 2206) 22 MEQ/L CALCIUM (test code = 2209) 9.3 MG/DL PROTEIN, TOTAL (test code = 2229) 7.2 G/DL ALBUMIN (test code = 2201) 4.6 G/DL CALC GLOBULIN (test code = 2240) 2.6 G/DL CALC A/G RATIO (test code = 2234) 1.8 RATIO BILIRUBIN, TOTAL (test code = 2207) 1.3 MG/DL ALKALINE PHOSPHATASE (test code = 2204) 82 U/L AST (test code = 2218) 16 U/L ALT (test code = 2219) 12 U/L LIPID [id number] 00:00:00* Test Item Value Reference Range Interpretation Comme nts CHOLESTEROL (test code = 2210) 189 MG/DL TRIGLYCERIDES (test code = 2232) 148 MG/DL HDL CHOLESTEROL (test code = 2220) 70 MG/DL CALC LDL CHOL (test code = 2237) 89 MG/DL RISK RATIO LDL/HDL (test cod e = 2238) 1.28 RATIO LIPID [id number] 00:00:00* Test Item Value Reference Range Interpretation Comme nts CHOLESTEROL (test code = 2210) 189 MG/DL TRIGLYCERIDES (test code = 2232) 148 MG/DL HDL CHOLESTEROL (test code = 2220) 70 MG/DL CALC LDL CHOL (test code = 2237) 89 MG/DL RISK RATIO LDL/HDL (test cod e = 2238) 1.28 RATIO HEMOGLOBIN [id number] 00:00:00* Test Item Value Reference Range Interpretation Comme nts HEMOGLOBIN A1c (test code = 15476) 5.7 % HEMOGLOBIN [id number] 00:00:00* Test Item Value Reference Range Interpretation Comme nts HEMOGLOBIN A1c (test code = 14408) 5.7 % HEMOGLOBIN [id number] 00:00:00* Test Item Value Reference Range Interpretation Comme nts HEMOGLOBIN A1c (test code = 26699) 5.7 % COMPREHENSIVE METABOLIC [id number] 00:00:00* Test Item Value Reference Range Interpretation Comme nts GLUCOSE (test code = 2217) 90 MG/DL BUN (test code = 2208) 19 MG/DL CREATININE (test code = 2214) 0.75 MG/DL eGFR AMER. (test cod e = 19219) 101 ML/MIN/1.73 eGFR NON- AMER. (test code = 95012) 87 ML/MIN/1.73 CALC BUN/CREAT (test code = 2235) 25 RATIO SODIUM (test code = 2231) 143 MEQ/L POTASSIUM (test code = 2228) 3.8 MEQ/L CHLORIDE (test code = 2215) 106 MEQ/L CARBON DIOXIDE (test code = 2206) 20 MEQ/L CALCIUM (test code = 2209) 9.0 MG/DL PROTEIN, TOTAL (test code = 2229) 6.7 G/DL ALBUMIN (test code = 2201) 4.3 G/DL CALC GLOBULIN (test code = 2240) 2.4 G/DL CALC A/G RATIO (test code = 2234) 1.8 RATIO BILIRUBIN, TOTAL (test code = 2207) 1.1 MG/DL ALKALINE PHOSPHATASE (test code = 2204) 87 U/L AST (test code = 2218) 18 U/L ALT (test code = 2219) 15 U/L COMPREHENSIVE METABOLIC [id number] 00:00:00* Test Item Value Reference Range Interpretation Comme nts GLUCOSE (test code = 2217) 90 MG/DL BUN (test code = 2208) 19 MG/DL CREATININE (test code = 2214) 0.75 MG/DL eGFR AMER. (test cod e = 10506) 101 ML/MIN/1.73 eGFR NON- AMER. (test code = 43621) 87 ML/MIN/1.73 CALC BUN/CREAT (test code = 2235) 25 RATIO SODIUM (test code = 2231) 143 MEQ/L POTASSIUM (test code = 2228) 3.8 MEQ/L CHLORIDE (test code = 2215) 106 MEQ/L CARBON DIOXIDE (test code = 2206) 20 MEQ/L CALCIUM (test code = 2209) 9.0 MG/DL PROTEIN, TOTAL (test code = 2229) 6.7 G/DL ALBUMIN (test code = 2201) 4.3 G/DL CALC GLOBULIN (test code = 2240) 2.4 G/DL CALC A/G RATIO (test code = 2234) 1.8 RATIO BILIRUBIN, TOTAL (test code = 2207) 1.1 MG/DL ALKALINE PHOSPHATASE (test code = 2204) 87 U/L AST (test code = 2218) 18 U/L ALT (test code = 2219) 15 U/L CBC W/AUTO [id number] 00:00:00* Test Item Value Reference Range Interpretation Comme nts WBC (test code = 1001) 8.6 K/UL [...] code = 1015) 197 K/UL CBC W/AUTO [id number] 00:00:00* Test Item Value Reference Range Interpretation Comme nts WBC (test code = 1001) 8.6 K/UL [...] code = 1015) 197 K/UL CBC W/AUTO [id number] 00:00:00* Test Item Value Reference Range Interpretation Comme nts WBC (test code = 1001) 8.6 K/UL [...] code = 1015) 197 K/UL ACUTE HEPATITIS [id number] 00:00:00* Test Item Value Reference Range Interpretation Comme nts HEPATITIS A IgM (test code = 79984) NON-REACTIVE HEPATITIS B CORE IgM (test c ode = 4644) NON-REACTIVE HEPATITIS B SURF AG (test co de = 2739) NON-REACTIVE HEPATITIS C ANTIBODY (test c ode = 4675) NON-REACTIVE INTERPRETATION HEPATITIS A: (test code = 2552) (NOTE) INTERPRETATION HEPATITIS B: (test code = 43441) (NOTE) INTERPRETATION HEPATITIS C: (test code = 20759) (NOTE) ACUTE HEPATITIS [id number] 00:00:00* Test Item Value Reference Range Interpretation Comme nts HEPATITIS A IgM (test code = 20507) NON-REACTIVE HEPATITIS B CORE IgM (test c ode = 4644) NON-REACTIVE HEPATITIS B SURF AG (test co de = 2739) NON-REACTIVE HEPATITIS C ANTIBODY (test c ode = 4675) NON-REACTIVE INTERPRETATION HEPATITIS A: (test code = 2552) (NOTE) INTERPRETATION HEPATITIS B: (test code = 61029) (NOTE) INTERPRETATION HEPATITIS C: (test code = 36760) (NOTE) [id number] 00:00:00* Test Item Value Reference Range Interpretation Comme nts AMYLASE (test code = 2205) 69 U/L [id number] 00:00:00* Test Item Value Reference Range Interpretation Comme nts AMYLASE (test code = 2205) 69 U/L [id number] 00:00:00* Test Item Value Reference Range Interpretation Comme nts LIPASE (test code = 2057) 16 U/L [id number] 00:00:00* Test Item Value Reference Range Interpretation Comme nts LIPASE (test code = 2057) 16 U/L [id number] 00:00:00* Test Item Value Reference Range Interpretation Comme nts LIPASE (test code = 2057) 16 U/L [id number] 00:00:00* Test Item Value Reference Range Interpretation Comme nts TSH (test code = 282) 1.8 UIU/ML [id number] 00:00:00* Test Item Value Reference Range Interpretation Comme nts TSH (test code = 282) 1.8 UIU/ML [id number] 00:00:00* Test Item Value Reference Range Interpretation Comme nts TSH (test code = 282) 1.8 UIU/ML COMPREHENSIVE METABOLIC [id number] 00:00:00* Test Item Value Reference Range Interpretation Comme nts GLUCOSE (test code = 2217) 116 MG/DL BUN (test code = 8) 15 MG/DL CREATININE (test code = 2214) 0.64 MG/DL eGFR AMER. (test cod e = 54687) 114 ML/MIN/1.73 eGFR NON- AMER. (test code = 38318) 98 ML/MIN/1.73 CALC BUN/CREAT (test code = 2235) 23 RATIO SODIUM (test code = 2231) 141 MEQ/L POTASSIUM (test code = 2228) 3.8 MEQ/L CHLORIDE (test code = 2215) 102 MEQ/L CARBON DIOXIDE (test code = 2206) 22 MEQ/L CALCIUM (test code = 2209) 9.7 MG/DL PROTEIN, TOTAL (test code = 2229) 7.1 G/DL ALBUMIN (test code = 2201) 4.5 G/DL CALC GLOBULIN (test code = 2240) 2.6 G/DL CALC A/G RATIO (test code = 2234) 1.7 RATIO BILIRUBIN, TOTAL (test code = 2207) 0.7 MG/DL ALKALINE PHOSPHATASE (test code = 2204) 88 U/L AST (test code = 2218) 15 U/L ALT (test code = 2219) 10 U/L COMPREHENSIVE METABOLIC [id number] 00:00:00* Test Item Value Reference Range Interpretation Comme nts GLUCOSE (test code = 2217) 116 MG/DL BUN (test code = 2208) 15 MG/DL CREATININE (test code = 2214) 0.64 MG/DL eGFR AMER. (test cod e = 61321) 114 ML/MIN/1.73 eGFR NON- AMER. (test code = 94466) 98 ML/MIN/1.73 CALC BUN/CREAT (test code = 2235) 23 RATIO SODIUM (test code = 2231) 141 MEQ/L POTASSIUM (test code = 2228) 3.8 MEQ/L CHLORIDE (test code = 2215) 102 MEQ/L CARBON DIOXIDE (test code = 2206) 22 MEQ/L CALCIUM (test code = 2209) 9.7 MG/DL PROTEIN, TOTAL (test code = 2229) 7.1 G/DL ALBUMIN (test code = 2201) 4.5 G/DL CALC GLOBULIN (test code = 2240) 2.6 G/DL CALC A/G RATIO (test code = 2234) 1.7 RATIO BILIRUBIN, TOTAL (test code = 2207) 0.7 MG/DL ALKALINE PHOSPHATASE (test code = 2204) 88 U/L AST (test code = 2218) 15 U/L ALT (test code = 2219) 10 U/L HEMOGLOBIN [id number] 00:00:00* Test Item Value Reference Range Interpretation Comme nts HEMOGLOBIN A1c (test code = 93263) 5.7 % HEMOGLOBIN [id number] 00:00:00* Test Item Value Reference Range Interpretation Comme nts HEMOGLOBIN A1c (test code = 30144) 5.7 % HEMOGLOBIN [id number] 00:00:00* Test Item Value Reference Range Interpretation Comme nts HEMOGLOBIN A1c (test code = 16590) 5.7 % POC, COVID 19 Antigen + Flu by [id number], COVID 19 Antigen + Flu by Jackie
--- NOTE | 2023-06-28 14:23 | RAD REPORT ---
EXAM DESCRIPTION: RAD - Chest Single View - 06/28/2023 2:13 pm CLINICAL HISTORY: CHEST PAIN Chest pain. COMPARISON: Chest Single View dated 03/01/2023; Chest Single View dated 05/25/2022; Chest Pa And Lat (2 Views) dated 10/04/2021; Chest Single View dated 08/20/2021 FINDINGS: Portable technique limits examination quality. Mild interstitial pulmonary edema. The heart is mildly enlarged in size. No displaced fractures. IMPRESSION: Mild CHF.
[2023-06-28 14:49] LABS: Absolute Lymphocytes (CBC) 2.5 K/uL (0.7-4.9); Hematocrit 39.4 % (36.0-45.0); Lymphocytes % 36.6 % (15.3-44.8); MCV 89.5 fL (80-100); MPV 9.1 fL (7.6-11.3); Platelets 155 thou/uL (152-406)
[2023-06-28 15:02] LABS: SARS-CoV-2 Antigen Rapid Res Negative (Negative)
[2023-06-28 15:43] LABS: Albumin 3.4 g/dL (3.4-5.0); Bilirubin Total 1.1 mg/dL (0.2-1.0); Potassium 3.7 mEq/L (3.5-5.1); Protein, Total 7.2 g/dL (6.4-8.2); Troponin High Sensitivity 3.6 pg/mL (<58.9)
--- NOTE | 2023-06-28 16:59 | EDPHYS ---
Physician Documentation [facility] Name: Toshia Barone Age: 68 yrs Sex: Female : 1955 Arrival Date: 06/28/2023 Time: 13:29 Bed 2 Private MD: ED Physician Luke Howard HPI: 06/28 14:02 This 68 yrs old Female presents to ER via Ambulatory with complaints of ec2 weakness, cough. 14:02 Patient arrives today for multiple complaints. Patient with cough and cold symptoms, ec2 generalized weakness. Patient reports that she was at a clinic today, they obtained an EKG, noted to be abnormal and sent her here. Patient reports no significant chest pain, denies any significant shortness of breath however does occasionally have some shortness of breath with her coughing. Denies any urinary complaints. Patient reports no fevers or chills. Patient reports some general decreased p.o. intake. Historical: - Allergies: 13:51 methylphenidate HCl; hb 13:51 PENICILLINS; hb 13:51 Reglan; hb 13:51 Ritalin; hb - Home Meds: 13:51 Metformin Oral [Active]; Atenolol Oral [Active]; Plavix 75 mg oral tablet daily hb [Active]; Lasix 40 mg Oral tablet [Active]; - PMHx: 13:51 B12 deficiency; CHF; COPD; CVA; diabetes mellitus; DVT; fatty liver; GERD; hb Hyperlipidemia; Hypertension; Hypothyroidism; Kidney stones; Myocardial infarction; Pancreatitis; TIA; - PSHx: 13:51 Cholecystectomy; Left upper lobe removed from lung; Total abdominal hysterectomy; hb - Immunization history:: Client reports receiving the 2nd dose of the Covid vaccine, Flu vaccine is up to date. - Social history:: Smoking status: Patient/guardian denies using tobacco, the patient reports quitting approximately 35 years ago. ROS: 14:02 Constitutional: as per hpi ec2 Exam: 14:02 Constitutional: GEN: NAD Head: atraumatic Eyes: EOMI Ears: External ears are ec2 normal. CV: regular rate LUNGS: no respiratory distress ABD: non-distended SKIN: no evidence of rashes MSK: no evidence of trauma NEURO: moves all extremities equally Vital Signs: 13:49 BP 176 / ???; Pulse 84; Resp 19; Temp 98.3; Pulse Ox 100% on R/A; Weight 79.38 kg; hb Height 5 ft. 5 in. ; Pain 5/10; 14:27 BP 163 / 102; ec2 14:39 BP 149 / 82; Pulse 59; Pulse Ox 97% on R/A; ap3 15:46 BP 135 / 72; Pulse 61; Pulse Ox 96% on R/A; ap3 13:49 Body Mass Index 29.12 (79.38 kg, 165.1 cm) hb 13:49 Pain Scale: Adult hb MDM: 13:43 Patient medically screened. ec2 14:02 Data reviewed: vital signs. ED course: Patient arrives today due to concern for general ec2 weakness as well as cough and cold symptoms as well as possible abnormal EKG. Examination remarkable for well-appearing nontoxic individual is otherwise in no acute distress. Will obtain lab work, EKG, chest x-ray for further assessment patient complaint. Currently considering electrolyte disturbances, anemia, viral infection such as COVID or flu, UTI, will suspicion for ACS.. 14:04 ED course: EKG independently reviewed and interpreted by me, shows normal sinus rhythm, ec2 rate of 62, no acute ST segment elevations, intervals are nonconcerning. There is some T wave inversions noted in the anterior leads. When compared to previous external EKGs, this appears unchanged. . 14:27 ED course: Chest x-ray shows mild CHF, patient without any significant respiratory ec2 distress.. 15:49 ED course: BNP minimally elevated. Metabolic profile with appropriate electrolytes. CBC ec2 is reassuring. Influenza screen is negative. Negative COVID testing. Troponin is within normal ranges. . 16:57 ED course: Lipase within normal ranges. On reassessment patient remains well-appearing ec2 and hemodynamically stable. Will discharge home and have him follow-up with her primary care doctor. No evidence of ACS, EKG is unremarkable and initial complaint of abnormal EKG does not appear to be consistent with our EKG today and her previous EKGs.. 06/28 13:43 Order name: CBC with Diff; Complete Time: 15:48 ec2 06/28 13:43 Order name: NT PRO-BNP; Complete Time: 15:48 ec2 06/28 13:43 Order name: Troponin HS; Complete Time: 15:48 ec2 06/28 13:43 Order name: CMP; Complete Time: 15:48 ec2 06/28 14:02 Order name: Influenza Screen (a \T\ B); Complete Time: 15:48 ec2 06/28 14:02 Order name: SARS RAPID; Complete Time: 15:48 ec2 06/28 14:15 Order name: Lipase; Complete Time: 16:57 ec2 06/28 13:43 Order name: XRAY Chest (1 view); Complete Time: 14:27 ec2 06/28 13:43 Order name: EKG; Complete Time: 13:44 ec2 06/28 13:43 Order name: Cardiac monitoring; Complete Time: 14:02 ec2 06/28 13:43 Order name: EKG - Nurse/Tech; Complete Time: 14:02 ec2 06/28 13:43 Order name: IV Saline Lock; Complete Time: 14:14 ec2 06/28 13:43 Order name: Labs collected and sent; Complete Time: 14:14 ec2 06/28 13:43 Order name: O2 Per Protocol; Complete Time: 14:02 ec2 06/28 13:43 Order name: O2 Sat Monitoring; Complete Time: 14:02 ec2 06/28 15:05 Order name: Labs - recollect needed: recollect chemistries/ hemolyzed; Complete Time: eb 15:21 Administered Medications: 15:54 Drug: Acetaminophen PO 1000 mg PO once Route: PO; ph 17:06 Follow up: Response: No adverse reaction ap3 15:54 Drug: Ketorolac IVP 15 mg IVP once Route: IVP; Site: left hand; ph 17:06 Follow up: Response: No adverse reaction; Pain is decreased ap3 15:55 Drug: Ondansetron IVP 4 mg IVP once; over 2 minutes Route: IVP; Site: left hand; ph 17:06 Follow up: Response: No adverse reaction ap3 Disposition Summary: 06/28/23 16:59 Discharge Ordered Notes: Location: Home ec2 Condition: Stable ec2 Diagnosis - Weakness ec2 - Viral infection, unspecified ec2 Followup: ec2 - With: Private Physician - When: - Reason: Recheck today's complaints Discharge Instructions: - Discharge Summary Sheet ec2 - Viral Illness, Adult ec2 Forms: - Medication Reconciliation Form ec2 - Thank You Letter ec2 - Antibiotic Education ec2 - Prescription Opioid Use ec2 - Patient Portal Instructions ec2 - Leadership Thank You Letter ec2 Signatures: Dispatcher [employer] Viviana Ahmadi RN RN Nusrat Riojas RN RN Odette Olivares Edwin, MD MD ec2 Allyson Conway RN ap3
--- NOTE | 2023-06-28 16:59 | ER ---
Nurse's Notes [facility] Name: Toshia Barone Age: 68 yrs Sex: Female : 1955 Arrival Date: 06/28/2023 Time: 13:29 Bed 2 Private MD: Diagnosis: Weakness;Viral infection, unspecified Presentation: 06/28 13:49 Chief complaint: Sent from [facility] for abnormal EKG . Reports SOB, hb palpitations, substernal chest pressure, nausea, and extreme fatigue x 3 days. Coronavirus screen: At this time, the client does not indicate any symptoms associated with coronavirus-19. Ebola Screen: No symptoms or risks identified at this time. Initial Sepsis Screen: Does the patient meet any 2 criteria? No. Patient's initial sepsis screen is negative. Does the patient have a suspected source of infection? No. Patient's initial sepsis screen is negative. Risk Assessment: Do you want to hurt yourself or someone else? Patient reports no desire to harm self or others. Onset of symptoms was June 25, 2023. 13:49 Method Of Arrival: Ambulatory hb 13:49 Acuity: SHARON 3 hb Historical: - Allergies: 13:51 methylphenidate HCl; hb 13:51 PENICILLINS; hb 13:51 Reglan; hb 13:51 Ritalin; hb - Home Meds: 13:51 Metformin Oral [Active]; Atenolol Oral [Active]; Plavix 75 mg oral tablet daily hb [Active]; Lasix 40 mg Oral tablet [Active]; - PMHx: 13:51 B12 deficiency; CHF; COPD; CVA; diabetes mellitus; DVT; fatty liver; GERD; hb Hyperlipidemia; Hypertension; Hypothyroidism; Kidney stones; Myocardial infarction; Pancreatitis; TIA; - PSHx: 13:51 Cholecystectomy; Left upper lobe removed from lung; Total abdominal hysterectomy; hb - Immunization history:: Client reports receiving the 2nd dose of the Covid vaccine, Flu vaccine is up to date. - Social history:: Smoking status: Patient/guardian denies using tobacco, the patient reports quitting approximately 35 years ago. Screenin:[address] [facility] ED Fall Risk Assessment (Adult) History of falling in the last 3 months, ap3 including since admission No falls in past 3 months (0 pts). Abuse screen: Denies threats or abuse. Nutritional screening: No deficits noted. Tuberculosis screening: No symptoms or risk factors identified. Assessment: 14:03 General: Appears in no apparent distress. Behavior is calm, cooperative. Pain: ap3 Complains of pain in chest Pain does not radiate. Pain began gradually, 2-3 days ago. Neuro: Level of Consciousness is awake, alert, obeys commands, Oriented to person, place, time, situation, Appropriate for age. Cardiovascular: Reports chest pain, Patient's skin is warm and dry. Respiratory: Reports cough that is Airway is patent Respiratory effort is even, unlabored, Respiratory pattern is regular, symmetrical. Vital Signs: 13:49 BP 176 / ???; Pulse 84; Resp 19; Temp 98.3; Pulse Ox 100% on R/A; Weight 79.38 kg; hb Height 5 ft. 5 in. ; Pain 5/10; 14:27 BP 163 / 102; ec2 14:39 BP 149 / 82; Pulse 59; Pulse Ox 97% on R/A; ap3 15:46 BP 135 / 72; Pulse 61; Pulse Ox 96% on R/A; ap3 13:49 Body Mass Index 29.12 (79.38 kg, 165.1 cm) hb 13:49 Pain Scale: Adult hb ED Course: 13:32 Patient arrived in ED. mg5 13:36 Luke Howard MD is Attending Physician. ec2 13:51 Triage completed. hb 13:53 Arm band placed on. hb 14:02 disaster recovery specialist on. Pulse ox on. NIBP on. Door closed. Noise minimized. ap3 14:02 Patient has correct armband on for positive identification. Placed in gown. Bed in low ap3 position. Call light in reach. Side rails up X2. 14:02 EKG done, by ED staff, reviewed by Luke Howard MD. Patient maintains SpO2 saturation ap3 greater than 95% on room air. 14:13 Initial lab(s) drawn, by me, sent to lab. Inserted saline lock: 24 gauge in left hand, ph using aseptic technique. Blood collected. 14:15 XRAY Chest (1 view) In Process Unspecified. EDMS 15:54 Viviana Sweeney, RN is Primary Nurse. ph 17:05 Provided Education on: discharge instructions. ap3 17:05 No provider procedures requiring assistance completed. IV discontinued, intact, ap3 bleeding controlled, No redness/swelling at site. Pressure dressing applied. Administered Medications: 15:54 Drug: Acetaminophen PO 1000 mg PO once Route: PO; ph 17:06 Follow up: Response: No adverse reaction ap3 15:54 Drug: Ketorolac IVP 15 mg IVP once Route: IVP; Site: left hand; ph 17:06 Follow up: Response: No adverse reaction; Pain is decreased ap3 15:55 Drug: Ondansetron IVP 4 mg IVP once; over 2 minutes Route: IVP; Site: left hand; ph 17:06 Follow up: Response: No adverse reaction ap3 Medication: 14:02 VIS not applicable for this client. ap3 Outcome: 16:59 Discharge ordered by . ec2 17:05 Discharged to home ambulatory, ap3 17:05 Condition: good 17:05 Discharge instructions given to patient, Instructed on discharge instructions, follow up and referral plans. Demonstrated understanding of instructions, follow-up care, 17:11 Patient left the ED. ap3 Signatures: Dispatcher [employer] EDViviana Moya RN RN Nusrat Riojas RN RN hb Prokisch, Amanda, RN RN ap3 Joleen Boateng mg5 Luke Howard MD MD ec2
[2023-06-28 18:36] VITALS: TEMP 98.3
[2023-06-28 18:56] VITALS: BP 135/72; O2SAT 96
--- NOTE | 2023-06-30 12:25 | EKG ---
Test Date: 2023-06-28 Test Time: 13:58:16 Pediatric Physical Therapy Assistant: ALP MEASUREMENT RESULTS: Intervals: Rate: 62 IA: 148 QRSD: 74 QT: 394 QTc: 399 [place]: P: 23 IA: 148 QRS: 32 T: 140 INTERPRETIVE STATEMENTS: Normal sinus rhythm Nonspecific ST and T wave abnormality Abnormal ECG Compared to ECG 03/01/2023 13:45:58 ST (T wave) deviation now present T-wave abnormality no longer present Electronically Signed On 06-30-23 12:20:41 SPA TECHNICIAN by Benton Davison
== END ==
LOC: ER 13:29
DX: B34.9 Viral infection, unspecified (principal); R05.9 Cough, unspecified; Z11.52 Encounter for screening for COVID-19; E11.9 Type 2 diabetes mellitus without complications; I10 Essential (primary) hypertension; Z79.01 Long term (current) use of anticoagulants; Z88.0 Allergy status to penicillin; Z88.8 Allergy status to other drugs, medicaments and biological substances
CPT/HCPCS: 93005; 85025; 36415; 84484; 83690; 80053; 83880; 87804 ×2; 71045; 96375; 96374; 99285; 87811; J2405

== ENCOUNTER 2024-02-26 15:54 | Emergency (ER) | payer OTHER ==
--- OUTSIDE RECORDS SUMMARY | 2024-02-26 16:19 | XMS REPORT | Continuity of Care Document ---
Author Name Unknown Address [address] 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 Name Role Phone Kris Kwan Primary Care Physician [phone] Destinee Gould Attending Clinician Unavail able Tonio Miller Attending Clinician Unavailable TYLER CHANG Attending Clinician Unavailab BRAEDEN Melton Attending Clinician Unavailable Tyler Chang MD Attending Clinician [phone] TONIE MILLER Attending Clinician Unavailable TONIE MILLER Attending Clinician Unavailable Sasha Arechiga DNP Attending Clinician [phone] Tyler Chang MD Attending Clinician [phone] Pob, 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 Attending Clinician UnavailRACHELLE Armstrong Attending Clinician UnavailRACHELLE Maldonado Attending Clinician Unavaila aditya Doctor Unassigned, [place] Attending Clinician U bertram Hickman RN, Shante Palumbo Attending Clinician FABRICIO Harris Attending Clinician FABRICIO Steen Attending Clinician Otoniel Love PA-C Attending Clinician [phone] Only, Adc Test Attending Clinician Unavailable OTONIEL GEIGER Attending Clinician Unavailable Amalia Malone MD Attending Clinician [phone] AMALIA MALONE Attending Clinician UnavailSARA Sneed Attending Clinician Unavailable Teddy Sweeney Attending Clinician [phone] MISTY AGUIRRE Attending Clinician Unavailable Misty Aguirre MD Attending Clinician [phone] Room, [facility] Uro Procedure Attending Clinician Unav Angle Domingo MD Attending Clinician [phone] ANGLE ELIZABETH Attending Clinician Unavail able TANG PIERCE Attending Clinician Unavailable ALBERT LEPE Attending Clinician Unavailab Tang Crespo MD Attending Clinician [phone] BENITEZ CUMMINGS Attending Clinician Unavailable Jules Gordon MD Attending Clinician [phone] JULES GORDON Attending Clinician Unavailable GEREMIAS CRUZ Attending Clinician Unavailable CATALINA PARKER Attending Clinician UnavailDENNYS Lane Attending Clinician Unavailable Baljeet SALVADOR, Braeden Attending Clinician [phone] Jamari Hicks MD Attending Clini nixon Umair Arreaga DO Attending Clinician [phone] UMAIR ARREAGA Attending Clinician Unavailable Tang Messina CRNA Attending Clinician [phone] Alex SALVADOR, Leatha Attending Clinician [phone] Livia Madrigal Attending Clinician [phone] AMALIA CONTRERAS Attending Clinician Darin Schofield MD, Fawad Walters Attending Clinician [phone] Cheri SALVADOR, Zee Attending Clinician [phone] Nette SALVADOR, Amalia Jackson Attending Clinician +- [phone] Minerva Ba CRNA Attending Clinician [phone] Stalin Schreiber MD Attending Clinician [phone] Ashley Valdez MD Attending Clinician [phone] Catalina Parker MD Attending Clinician [phone] Raju_P Attending Clinician Unavailable TYLER CHANG Admitting Clinician Unavailab BRAEDEN Melton Admitting Clinician Unavailable Tyler Chang MD Admitting Clinician [phone] Tyler Chang MD Admitting Clinician [phone] UMAIR ARREAGA Admitting Clinician Unavailable Braeden Delong MD Admitting Clinician [phone] ZEE ALONZO Admitting Clinician Unavailable Zee Alonzo MD Admitting Clinician [phone] Raju_P Admitting Clinician Unavailable Payers Payer Name Policy Type Policy Number Effective Date Expirati on Date Source [id number] DUAL COMP HMO D SNP [id number] 2023 00:00:00 MEDICAID [facility] [id number] 2023 00:00:00 [employer] DUAL CORDINATION [employer] HMO SNP [id number] 2023 00:00:00 [employer] DUAL COORDINATION HMO SNP [id number] 2022 00:00:00 [facility] [place] STAR PLUS [id number] 2011 00:00:00 [facility] 53 [id number] 2023 00:00:00 [facility] [employer] [facility] Advantage 1 [id number] 2022 00:00:00 [facility] Community STAR Plus HARRY 53 [id number] 2021 00:00:00 [facility]-STAR PLUS C1 [id number] 2017 00:00:00 [facility]-STAR PLUS C1 [id number] 2017 00:00:00 [facility]-STAR PLUS C1 [id number] 2017 00:00:00 [facility]-STAR PLUS C1 [id number] 2017 00:00:00 [facility]-STAR PLUS C1 [id number] 2017 00:00:00 [facility]-STAR PLUS C1 [id number] 2017 00:00:00 [facility]-STAR PLUS C1 [id number] 2017 00:00:00 [facility]-STAR PLUS C1 [id number] 2017 00:00:00 [facility]-STAR PLUS C1 [id number] 2017 00:00:00 [facility]-STAR PLUS C1 [id number] 2017 00:00:00 [facility]-STAR PLUS C1 [id number] 2017 00:00:00 [facility] STAR PLUS (MEDICAID HMO) [id number] 2013 00:00:00 Problems Condition Name Condition Details Condition Category Status Onset Date Resolution Date Last Treatment Date Treating Clinician Comments Source Vaginal itching Vaginal itching Disease Active 07-17 00:00: 00 [facility] patrizia [facility] Vulvar abscess Vulvar abscess Disease Active 125 00:00: 00 [facility] Restless legs Restless legs Disease Active 03-13 00:00: 00 [facility] Varicose veins of lower extremity Varicose veins of lower extremity Disease Active 03-13 00:00: 00 [facility] Right ureteral stone Right ureteral stone Disease Active 09-20 00:00: 00 Overview: Formattin g of this note might be different from the original. Added automatic ally from request for surgery [id number] [facility] Pyelonephr itis Pyelonephr itis Disease Active 09-09 00:00: 00 [facility] Hemorrhoid s, unspecifie d hemorrhoid type Hemorrhoid s, unspecifie d hemorrhoid type Disease Active 02-17 00:00: 00 Overview: Formattin g of this note might be different from the original. Added automatic ally from request for surgery [id number] [facility] Seizure Seizure Disease Active 14 00:00: 00 [facility] Chest pain, atypical Chest pain, atypical Disease Active 09-24 00:00: 00 [facility] Chronic confusion Chronic confusion Disease Active 09-24 00:00: 00 [facility] Hypothyroi dism (acquired) Hypothyroi dism (acquired) Disease Active 07-20 00:00: 00 [facility] Unstable angina Unstable angina Disease Active 07-19 00:00: 00 [facility] Dyspnea Dyspnea Disease Active 07-18 00:00: 00 [facility] Personal history of transient ischemic attack (TIA), and cerebral infarction without residual deficits Personal history of transient ischemic attack (TIA), and cerebral infarction without residual deficits Disease Active 09-11 00:00: 00 [facility] 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 Disease Active 09-11 00:00: 00 [facility] Chronic coronary artery disease Chronic coronary artery disease Disease Active 09-11 00:00: 00 [facility] DM (diabetes mellitus) DM (diabetes mellitus) Disease Active 09-11 00:00: 00 [facility] Chronic coronary artery disease Chronic coronary artery disease Disease Active 09-11 00:00: 00 [facility] Cervical spondylosi s without myelopathy Cervical spondylosi s without myelopathy Disease Active 12-05 00:00: 00 [facility] Displaceme nt of lumbar interverte bral disc without myelopathy Displaceme nt of lumbar interverte bral disc without myelopathy Disease Active 12-05 00:00: 00 [facility] Old myocardial infarction Old myocardial infarction Disease Active 12-01 00:00: 00 [facility] Chronic depressive personalit y disorder Chronic depressive personalit y disorder Disease Active 11-03 00:00: 00 [facility] Anxiety state Anxiety state Disease Active 11-03 00:00: 00 Overview: Formattin g of this note might be different from the original. ICD10 Diagnosis Term Certified Medical Transcriptionist Utility [facility] Other chest pain Other chest pain Disease Active 07-09 00:00: 00 [facility] Essential hypertensi on, benign Essential hypertensi on, benign Disease Active 07-09 00:00: 00 [facility] HLD (hyperlipi demia) HLD (hyperlipi demia) Disease Active 07-09 00:00: 00 Overview: Formattin g of this note might be different from the original. ICD10 Diagnosis Term Certified Medical Transcriptionist Utility [facility] Chronic obstructiv e airway disease with asthma Chronic obstructiv e airway disease with asthma Disease Active 07-09 00:00: 00 Overview: Formattin g of this note might be different from the original. ICD10 Diagnosis Term Certified Medical Transcriptionist Utility [facility] Peripheral neuropathy Peripheral neuropathy Problem [facility] Chronic pancreatit is Chronic pancreatit is Problem [facility] Fatty liver Fatty liver Problem [facility] Insomnia Insomnia Problem [facility] Stented coronary artery Stented coronary artery Problem [facility] Gastroesop hageal reflux disease GERD (gastroeso phageal reflux disease) Problem [facility] Degenerati on of lumbosacra l interverte bral disc Degenerati on, interverte bral disc, lumbosacra l Problem [facility] 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 Atheroscle rosis of coronary artery of samish heart Problem [facility] Degenerati ve joint disease Degenerati ve joint disease Problem [facility] Varicose veins Varicose veins Problem [facility] Hypertensi on Hypertensi on Problem [facility] Dizziness Dizziness Problem [facility] Postsurgic al menopause Postsurgic al menopause Problem [facility] [id number] History of transient ischemic attack [facility] History of cerebrovas cular accident History of cerebrovas cular accident Problem [facility] [id number] Adrenal hypofuncti on Problem [facility] Megaloblas tic anemia due to vitamin B>12< deficiency Vitamin B12 deficiency anemia Problem [facility] Simple renal cyst Simple renal cyst Problem [facility] [id number] Stress disorder, acute Problem [facility] Solitary nodule of lung Lung nodule Problem [facility] Mixed anxiety and depressive disorder Depression with anxiety Problem [facility] [id number] Vitamin D deficiency Problem [facility] Obstructiv e sleep apnea Obstructiv e sleep apnea Problem [facility] Mixed hyperlipid emia Hyperlipid emia, mixed Problem [facility] [id number] Chronic obstructiv e pulmonary disease, unspecifie d COPD type Problem [facility] [id number] Hypothyroi dism, unspecifie d type Problem [facility] [id number] Other chronic pain Problem [facility] [id number] Kidney stone Problem [facility] [id number] Gross hematuria Problem [facility] [id number] Lower urinary tract symptoms (LUTS) Problem [facility] [id number] Urinary incontinen ce, unspecifie d type Problem [facility] Sinusitis Sinusitis Problem [facility] [id number] Suprapubic pain Problem [facility] [id number] Painful bladder spasm Problem [facility] [id number] Obesity (BMI 30-39.9) Problem [facility] [id number] Flank pain, acute Problem [facility] History of urinary stone History of renal calculi Problem [facility] Acid reflux Acid reflux Problem [facility] [id number] Moderate major depression , single episode Problem [facility] [id number] Type 2 diabetes mellitus with hyperglyce tim, without long-term current use of insulin Problem [facility] Amnesia Memory changes Problem [facility] [id number] Chronic fatigue Problem [facility] [id number] Peripheral polyneurop athy Problem [facility] Allergies, Adverse Reactions, Alerts Allergy Name Allergy Type Status Severity Reaction(s) Onset Date Inactive Date Treating Clinician Comments Source RediTrex (PF) Propensi ty to adverse reaction to drug Active 01-27 00:00: 00 [facility] Ranitidi ne - Oral Propensi ty to adverse reaction to drug Active 12-05 00:00: 00 [facility] Penicill ins DA Active MO 2016-06 00:00: 00 [facility] metoclop ramide DA Active MO 2016-06 00:00: 00 [facility] Penicill ins Propensi ty to adverse reaction to drug Active 12-11 00:00: 00 [facility] METOCLOP RAMIDE HCL DRUG INGREDI Active Med Anxiety 12-21 00:00: 00 [facility] Metoclop ramide Hcl Propensi ty to adverse reaction s Active Anxiety 12-21 00:00: 00 [facility] PENICILL INS Drug Class Active Med Rash 0 415 00:00: 00 [facility] METHYLPH ENIDATE DRUG INGREDI Active Anxiety 0 15 00:00: 00 [facility] Penicill ins Propensi ty to adverse reaction s Active Rash 0 15 00:00: 00 [facility] Penicill ins Propensi ty to adverse reaction s Active Rash 10-05 00:00: 00 [facility] Penicill ins Propensi ty to adverse reaction s Active Rash 10-05 00:00: 00 [facility] Methylph enidate Propensi ty to adverse reaction s Active Anxiety 10-05 00:00: 00 [facility] metoclop ramide metoclop ramide Active anxiety [facility] Social History Social Habit Start Date Stop Date Quantity Comments Source Sex Assigned At [facility] Gender identity [facility] Sexual orientation [facility] History of tobacco use Cigarette Smoker [facility] Alcoholic beverage intake 2024-01-22 00:00:00 2024-01-22 00:00:00 0 /d [facility] History of Social function 2023-10-20 00:00:00 2023-10-20 00:00:00 [facility] Alcohol intake 2023-10-13 00:00:00 2023-10-13 00:00:00 0 /d [facility] Tobacco Comment 2022-12-20 00:00:00 2022-12-20 00:00:00 Quit 30 years ago. [facility] Cigarette pack-years 2022-12-20 00:00:00 2022-12-20 00:00:00 [facility] Tobacco use and exposure 2022-12-20 00:00:00 2022-12-20 00:00:00 Smokeless tobacco non-user [facility] Exposure to SARS-CoV-2 (event) 2022-10-12 00:00:00 2022-10-22 10:34:00 Not sure [facility] Education 2019-09-10 00:00:00 2019-09-10 00:00:00 10 [facility] History SDOH Financial 2019-09-10 00:00:00 2019-09-10 00:00:00 4 [facility] History SDOH Food Worry 2019-09-10 00:00:00 2019-09-10 00:00:00 1 [facility] History SDOH Food Scarcity 2019-09-10 00:00:00 2019-09-10 00:00:00 1 [facility] History SDOH Transport Med 2019-09-10 00:00:00 2019-09-10 00:00:00 2 [facility] History SDOH Transport Non-Med 2019-09-10 00:00:00 2019-09-10 00:00:00 2 [facility] Smoking Status Start Date Stop Date Source Unknown if ever smoked [facility] Ex-smoker 2022-12-20 00:00:00 2022-12-20 00:00:00 [facility] Current Smoker 2022-07-01 00:00:00 [facility] Never Smoker [facility] Medications Ordered Medication Name Filled Medication Name Start Date Stop Date Current Medication? Ordering Clinician Indication Dosage Frequency Signature (SIG) Comments Components Source triamcinolo ne acetonide (KENALOG) injection 02-08 13:01: 00 02-08 17:26 :59 No PRN, Starting on Fri02/09/24 at 0801, Until Fri02/09/24 at 1226, Routine, Intra-op [facility] iohexoL (OMNIPAQUE 300-50 mL)) injection 02-08 13:00: 00 02-08 17:26 :59 No PRN, Starting on Fri02/09/24 at 0800, Until Fri02/09/24 at 1226, Routine, Intra-op [facility] lidocaine 1% (XYLOCAINE) 10 mg/mL (1 %) injection 02-08 12:59: 00 02-08 17:26 :59 No PRN, Starting on Fri02/09/24 at 0759, Until Fri02/09/24 at 1226, Routine, Intra-op [facility] bupivacaine (preserv free) (SENSORCAIN E MPF) 0.25 % (2.5 mg/mL) injection 02-08 12:59: 00 02-08 17:26 :59 No PRN, Starting on Fri02/09/24 at 0759, Until Fri02/09/24 at 1226, Routine, Intra-op [facility] lactated ringers IV infusion 1,000 mL 02-08 12:30: 00 02-08 12:35 :00 No 1000mL at 42 mL/hr, 1,000 mL, IV Infusion, ONCE, 1 dose, On Fri02/09/24 at 0730, Routine, DSU Pre-op [facility] Trelegy Ellipta 100-62.5-25 MCG/INH Trelegy Ellipta 100-62.5-25 MCG/INH 02-08 00:00: 00 No 1{puff} QD Trelegy Ellipta 100-62.5-2 5 MCG/INH Triamcinolo ne Acetonide 0.1 % Triamcinolo ne Acetonide 0.1 % 02-08 00:00: 00 No BID Triamcinol one Acetonide 0.1 % Rosuvastati n Calcium 20 MG Rosuvastati n Calcium 20 MG 02-08 00:00: 00 No 1{table t} QD Rosuvastat in Calcium 20 MG buPROPion HCl ER (XL) 150 MG buPROPion HCl ER (XL) 150 MG 02-04 00:00: 00 No 1{table t_in_th e_morni ng} QD buPROPion HCl ER (XL) 150 MG Ozempic (0.25 or 0.5 MG/DOSE) 2 MG/3ML Ozempic (0.25 or 0.5 MG/DOSE) 2 MG/3ML 02-04 00:00: 00 No Ozempic (0.25 or 0.5 MG/DOSE) 2 MG/3ML Bromfed DM 2 mg-30 mg-10 mg/5 mL oral syrup 01-27 00:00: 00 Yes 10mg/5 mL [facility] esomeprazol e 40 mg capsule 12-10 08:43: 31 Yes 40mg Take 1 capsule by mouth in the morning. [facility] mometasone (NASONEX) 50 mcg/actuati on nasal spray 12-10 08:43: 31 Yes 1{spray } Use 1 [place] in each nostril. [facility] clopidogreL (PLAVIX) 75 mg tablet 12-10 08:43: 31 Yes 75mg Take 1 tablet by mouth in the morning. [facility] scopolamine transdermal 1 mg over 3 days patch 12-10 08:43: 31 Yes 1.5mg Apply 1 Patch to area(s) every 72 (seventy-t wo) hours. Pt uses as needed [facility] venlafaxine XR 150 mg 24 hr capsule 12-10 08:43: 31 Yes 150mg Take 1 capsule by mouth in the morning. [facility] KCL 10 mEq tablet 12-10 08:43: 31 Yes 10meq Take 1 tablet by mouth in the morning. [facility] budesonide- formoteroL 160-4.5 mcg/actuati on inhaler 12-10 08:39: 36 Yes 2{puff} Inhale 2 Puffs in the morning and 2 Puffs in the evening. [facility] nitroglycer in (NITROSTAT) 0.4 mg sublingual tablet 12-10 08:39: [address] 1 tablet under the tongue every 5 (five) minutes as needed for Chest pain. [facility] ergocalcife rol, vitamin D2, (VITAMIN D ORAL) 12-10 08:39: 36 Yes Take by mouth. [facility] ketoconazol e 2 % cream 12-10 08:39: 36 Yes 1g Apply 1 g to area(s) in the morning and 1 g in the evening. [facility] triamcinolo ne acetonide (KENALOG) injection 11-30 13:57: 00 11-30 16:01 :56 No PRN, Starting on Fri12/01/23 at 0857, Until Fri12/01/23 at 1101, Routine, Intra-op [facility] lactated ringers IV infusion 1,000 mL 11-30 13:30: 00 11-30 16:01 :56 No 1000mL at 75 mL/hr, 1,000 mL, IV Infusion, CONTINUOUS , Starting on Fri12/01/23 at 0830, Until Fri12/01/23 at 1101, Routine, PACU [facility] FENTanyl PF (SUBLIMAZE (PF)) injection 25 mcg 11-30 13:16: 45 11-30 16:01 :56 No 25ug 25 mcg, Slow IV Push, Q5MIN PRN, 4 doses, Starting on Fri12/01/23 at 0816, Until Fri12/01/23 at 1101, Routine, Pain (scale 7-10), PACU [facility] ondansetron (ZOFRAN (PF)) injection 4 mg 11-30 13:16: 45 11-30 16:01 :56 No 4mg 4 mg, Slow IV Push, PRN, 1 dose, Starting on Fri12/01/23 at 0816, Until Fri12/01/23 at 1101, Routine, Nausea and Vomiting (N/V), PACU [facility] lidocaine 1% (XYLOCAINE) 10 mg/mL (1 %) injection 11-30 12:58: 00 11-30 16:01 :56 No PRN, Starting on Fri12/01/23 at 0758, Until Fri12/01/23 at 1101, Routine, Intra-op [facility] iohexoL (OMNIPAQUE 300-50 mL)) injection 11-30 12:57: 00 11-30 13:16 :10 No PRN, Starting on Fri12/01/23 at 0757, Until Fri12/01/23 at 0816, Routine, Intra-op [facility] bupivacaine (preserv free) (SENSORCAIN E MPF) 0.25 % (2.5 mg/mL) injection 11-30 12:56: 00 11-30 13:16 :10 No PRN, Starting on Fri12/01/23 at 0756, Until Fri12/01/23 at 0816, Routine, Intra-op [facility] lactated ringers IV infusion 1,000 mL 11-30 12:15: 00 11-30 12:30 :00 No 1000mL at 42 mL/hr, 1,000 mL, IV Infusion, ONCE, 1 dose, On Fri12/01/23 at 0715, Routine, DSU Pre-op [facility] esomeprazol e 40 mg capsule 11-30 09:01: 55 Yes 40mg Take 1 capsule by mouth in the morning. [facility] budesonide- formoteroL 160-4.5 mcg/actuati on inhaler 11-30 09:01: 55 Yes 2{puff} Inhale 2 Puffs in the morning and 2 Puffs in the evening. [facility] nitroglycer in (NITROSTAT) 0.4 mg sublingual tablet 11-30 09:01: [address] 1 tablet under the tongue every 5 (five) minutes as needed for Chest pain. [facility] mometasone (NASONEX) 50 mcg/actuati on nasal spray 11-30 09:01: 55 Yes 1{spray } Use 1 [place] in each nostril. [facility] clopidogreL (PLAVIX) 75 mg tablet 11-30 09:01: 55 Yes 75mg Take 1 tablet by mouth in the morning. [facility] ergocalcife rol, vitamin D2, (VITAMIN D ORAL) 11-30 09:01: 55 Yes Take by mouth. [facility] scopolamine transdermal 1 mg over 3 days patch 11-30 09:01: 55 Yes 1.5mg Apply 1 Patch to area(s) every 72 (seventy-t wo) hours. Pt uses as needed [facility] venlafaxine XR 150 mg 24 hr capsule 11-30 09:01: 55 Yes 150mg Take 1 capsule by mouth in the morning. [facility] ketoconazol e 2 % cream 11-30 09:01: 55 Yes 1g Apply 1 g to area(s) in the morning and 1 g in the evening. [facility] KCL 10 mEq tablet 11-30 09:01: 55 Yes 10meq Take 1 tablet by mouth in the morning. [facility] Cyanocobala min Cyanocobala min 11-24 00:00: 00 No 1000ug [facility] lidocaine 1% (XYLOCAINE) 10 mg/mL (1 %) injection 10-19 14:26: 00 10-19 16:54 :50 No PRN, Starting on Fri10/20/23 at 0926, Until Fri10/20/23 at 1154, Routine, Intra-op [facility] lactated ringers IV infusion 1,000 mL 10-19 14:15: 00 10-19 16:54 :50 No 1000mL at 100 mL/hr, 1,000 mL, IV Infusion, CONTINUOUS , Starting on Fri10/20/23 at 0915, Until Fri10/20/23 at 1154, Routine, PACU [facility] ondansetron (ZOFRAN (PF)) injection 4 mg 10-19 14:06: 36 10-19 16:54 :50 No 4mg 4 mg, Slow IV Push, PRN, 1 dose, Starting on Fri10/20/23 at 0906, Until Fri10/20/23 at 1154, Routine, Nausea and Vomiting (N/V), PACU [facility] triamcinolo ne acetonide (KENALOG) injection 10-19 13:57: 00 10-19 16:54 :50 No PRN, Starting on Fri10/20/23 at 0857, Until Fri10/20/23 at 1154, Routine, Intra-op [facility] iohexoL (OMNIPAQUE 300-50 mL)) injection 10-19 13:57: 00 10-19 16:54 :50 No PRN, Starting on Fri10/20/23 at 0857, Until Fri10/20/23 at 1154, Routine, Intra-op [facility] bupivacaine (preserv free) (SENSORCAIN E MPF) 0.25 % (2.5 mg/mL) injection 10-19 13:57: 00 10-19 16:54 :50 No PRN, Starting on Fri10/20/23 at 0857, Until Fri10/20/23 at 1154, Routine, Intra-op [facility] esomeprazol e 40 mg capsule 10-19 09:54: 43 Yes 40mg Take 1 capsule by mouth in the morning. [facility] budesonide- formoteroL 160-4.5 mcg/actuati on inhaler 10-19 09:54: 43 Yes 2{puff} Inhale 2 Puffs in the morning and 2 Puffs in the evening. [facility] nitroglycer in (NITROSTAT) 0.4 mg sublingual tablet 10-19 09:54: [address] 1 tablet under the tongue every 5 (five) minutes as needed for Chest pain. [facility] mometasone (NASONEX) 50 mcg/actuati on nasal spray 10-19 09:54: 43 Yes 1{spray } Use 1 [place] in each nostril. [facility] clopidogreL (PLAVIX) 75 mg tablet 10-19 09:54: 43 Yes 75mg Take 1 tablet by mouth in the morning. [facility] ergocalcife rol, vitamin D2, (VITAMIN D ORAL) 10-19 09:54: 43 Yes Take by mouth. [facility] scopolamine transdermal 1 mg over 3 days patch 10-19 09:54: 43 Yes 1.5mg Apply 1 Patch to area(s) every 72 (seventy-t wo) hours. Pt uses as needed [facility] venlafaxine XR 150 mg 24 hr capsule 10-19 09:54: 43 Yes 150mg Take 1 capsule by mouth in the morning. [facility] ketoconazol e 2 % cream 10-19 09:54: 43 Yes 1g Apply 1 g to area(s) in the morning and 1 g in the evening. [facility] KCL 10 mEq tablet 10-19 09:54: 43 Yes 10meq Take 1 tablet by mouth in the morning. [facility] scopolamine 1 mg over 3 days 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 10-08 00:00: 00 Yes mg over 3 days Rock Reynaga losartan 100 mg tablet 10-08 00:00: 00 Yes 1mg Rock Reynaga pantoprazol e 40 mg tablet,laura yed release 10-08 00:00: 00 Yes 1mg Rock Reynaga furosemide 40 mg tablet 10-08 00:00: 00 Yes 1mg Rock Reynaga simvastatin 40 mg tablet 10-08 00:00: 00 Yes 1mg Rock Reynaga ondansetron 8 mg disintegrat ing tablet 10-08 00:00: 00 Yes 1mg Rock Reynaga venlafaxine ER 150 mg capsule,ext ended release 24 hr 10-08 00:00: 00 Yes 1mg Rock Reynaga loratadine 10 mg capsule 10-01 00:00: 00 Yes 1mg Rock Reynaga PANTOPRAZOL E 40MG DR 09-25 00:00: 00 Yes Rock Reynaga LOSARTAN 100MG 09-25 00:00: 00 Yes Rock Reynaga FUROSEMIDE 40MG 09-24 00:00: 00 Yes Rock Reynaga triamcinolo ne acetonide (KENALOG) injection 09-21 12:35: 00 09-21 16:10 :13 No PRN, Starting on Fri09/22/23 at 0735, Until Fri09/22/23 at 1110, Routine, Intra-op [facility] bupivacaine (preserv free) (SENSORCAIN E MPF) 0.25 % (2.5 mg/mL) injection 09-21 12:35: 00 09-21 16:10 :13 No PRN, Starting on Fri09/22/23 at 0735, Until Fri09/22/23 at 1110, Routine, Intra-op [facility] iohexoL (OMNIPAQUE 300-50 mL)) injection 09-21 12:35: 00 09-21 16:10 :13 No PRN, Starting on Fri09/22/23 at 0735, Until Fri09/22/23 at 1110, Routine, Intra-op [facility] lidocaine 1% (XYLOCAINE) 10 mg/mL (1 %) injection 09-21 12:33: 00 09-21 16:10 :13 No PRN, Starting on Fri09/22/23 at 0733, Until Fri09/22/23 at 1110, Routine, Intra-op [facility] lactated ringers IV infusion 1,000 mL 09-21 11:45: 00 09-21 11:50 :00 No 1000mL at 42 mL/hr, 1,000 mL, IV Infusion, ONCE, 1 dose, On Fri09/22/23 at 0645, Routine, DSU Pre-op [facility] esomeprazol e 40 mg capsule 09-21 09:05: 13 Yes 40mg Take 1 capsule by mouth in the morning. [facility] budesonide- formoteroL 160-4.5 mcg/actuati on inhaler 09-21 09:05: 13 Yes 2{puff} Inhale 2 Puffs in the morning and 2 Puffs in the evening. [facility] nitroglycer in (NITROSTAT) 0.4 mg sublingual tablet 09-21 09:05: [address] 1 tablet under the tongue every 5 (five) minutes as needed for Chest pain. [facility] mometasone (NASONEX) 50 mcg/actuati on nasal spray 09-21 09:05: 13 Yes 1{spray } Use 1 [place] in each nostril. [facility] clopidogreL (PLAVIX) 75 mg tablet 09-21 09:05: 13 Yes 75mg Take 1 tablet by mouth in the morning. [facility] ergocalcife rol, vitamin D2, (VITAMIN D ORAL) 09-21 09:05: 13 Yes Take by mouth. [facility] scopolamine transdermal 1 mg over 3 days patch 09-21 09:05: 13 Yes 1.5mg Apply 1 Patch to area(s) every 72 (seventy-t wo) hours. Pt uses as needed [facility] venlafaxine XR 150 mg 24 hr capsule 09-21 09:05: 13 Yes 150mg Take 1 capsule by mouth in the morning. [facility] ketoconazol e 2 % cream 09-21 09:05: 13 Yes 1g Apply 1 g to area(s) in the morning and 1 g in the evening. [facility] KCL 10 mEq tablet 09-21 09:05: 13 Yes 10meq Take 1 tablet by mouth in the morning. [facility] VENLAFAXINE 150MG ER 3-28 00:00: 00 Yes Rock Reynaga TAKE 1 TABLET BY MOUTH DAILY 3-19 00:00: 00 Yes Rock Reynaga SIMVASTATIN 40MG 2-29 00:00: 00 Yes Rock Reynaga FAMOTIDINE 40MG 2-26 00:00: 00 Yes Rock Reynaga BREZTRI AERO SPHERE INH 2-23 00:00: 00 Yes Rock Reynaga ALBUTER 3ML 0.083% 2-17 00:00: 00 Yes Rock Reynaga ONDANSETRON 4MG ODT 2-13 00:00: 00 Yes Rock Reynaga TAKE 1 TABLET BY MOUTH EVERY DAY IN THE MORNING ON EMPTY STOMACH FOR 90 DAYS 2-12 00:00: 00 Yes Rock Reynaga TAKE 1 TABLET BY MOUTH EVERY DAY 2023-0 2-06 00:00: 00 Yes Rock Reynaga SPIRONOLACT 25MG 2-01 00:00: 00 Yes Rock Reynaga INHALE 2 PUFFS TWICE A DAY 07-22 00:00: 00 Yes Rokc Reynaga lactated ringers IV infusion 1,000 mL 07-21 14:15: 00 Yes 1000mL at 100 mL/hr, 1,000 mL, IV Infusion, CONTINUOUS , Starting on Fri07/21/23 at 0815, Until Discontinu ed, Routine, PACU [facility] ondansetron (ZOFRAN (PF)) injection 4 mg 07-21 14:10: 53 Yes 4mg 4 mg, Slow IV Push, PRN, 1 dose, Starting on Fri07/21/23 at 0810, Until Discontinu ed, Routine, Nausea and Vomiting (N/V), PACU [facility] triamcinolo ne acetonide (KENALOG) injection 07-21 13:53: 00 07-21 17:00 :08 No PRN, Starting on Fri07/21/23 at 0753, Until Fri07/21/23 at 1100, Routine, Intra-op [facility] NaCl 23.4% HYPERTONIC injection 07-21 13:53: 00 07-21 17:00 :09 No PRN, Starting on Fri07/21/23 at 0753, Until Fri07/21/23 at 1100, STAT, Intra-op [facility] iohexoL (OMNIPAQUE 300-50 mL)) injection 07-21 13:51: 00 07-21 17:00 :09 No PRN, Starting on Fri07/21/23 at 0751, Until Fri07/21/23 at 1100, Routine, Intra-op [facility] bupivacaine (preserv free) (SENSORCAIN E MPF) 0.25 % (2.5 mg/mL) injection 07-21 13:50: 00 07-21 17:00 :09 No PRN, Starting on Fri07/21/23 at 0750, Until Fri07/21/23 at 1100, Rout[facility],000 mL 07-21 13:30: 00 07-21 13:39 :00 No 1000mL at 42 mL/hr, 1,000 mL, IV Infusion, ONCE, 1 dose, On Fri07/21/23 at 0730, Routine, DSU Pre-op [facility] esomeprazol e 40 mg capsule 07-21 08:55: 02 Yes 40mg Take 1 capsule by mouth in the morning. [facility] budesonide- formoteroL 160-4.5 mcg/actuati on inhaler 07-21 08:55: 02 Yes 2{puff} Inhale 2 Puffs in the morning and 2 Puffs in the evening. [facility] nitroglycer in (NITROSTAT) 0.4 mg sublingual tablet 07-21 08:55: [address] 1 tablet under the tongue every 5 (five) minutes as needed for Chest pain. [facility] mometasone (NASONEX) 50 mcg/actuati on nasal spray 07-21 08:55: 02 Yes 1{spray } Use 1 [place] in each nostril. [facility] clopidogreL (PLAVIX) 75 mg tablet 07-21 08:55: 02 Yes 75mg Take 1 tablet by mouth in the morning. [facility] ergocalcife rol, vitamin D2, (VITAMIN D ORAL) 07-21 08:55: 02 Yes Take by mouth. [facility] scopolamine transdermal 1 mg over 3 days patch 07-21 08:55: 02 Yes 1.5mg Apply 1 Patch to area(s) every 72 (seventy-t wo) hours. Pt uses as needed [facility] venlafaxine XR 150 mg 24 hr capsule 07-21 08:55: 02 Yes 150mg Take 1 capsule by mouth in the morning. [facility] ketoconazol e 2 % cream 07-21 08:55: 02 Yes 1g Apply 1 g to area(s) in the morning and 1 g in the evening. [facility] KCL 10 mEq tablet 07-21 08:55: 02 Yes 10meq Take 1 tablet by mouth in the morning. [facility] LINZESS 145MCG 07-16 00:00: 00 Yes Rock Reynaga 1 TABLET BY MOUTH WITH MEAL ORALLY TWICE A DAY 30 90 DAYS 07-16 00:00: 00 Yes Rock Reynaga ALBUTER 3ML 0.083% 16 00:00: 00 Yes Rock Reynaga TAKE 1 TABLET BY MOUTH EVERY DAY IN THE EVENING FOR 90 DAYS 07-07 00:00: 00 Yes Rock Reynaga LEVOTHYROXI N 25MCG 07-03 00:00: 00 Yes [id number] Rock Reynaga INHALE 1-2 PUFFS EVERY 4 TO 6 HOURS NEEDED FOR WHEEZING. 06-28 00:00: 00 Yes [id number] Rock Reynaga TAKE 1 TABLET TWICE DAILY WITH FOOD. 06-28 00:00: 00 10-21 00:00 :00 No [id number] Rock Reynaga TAKE 2 TABLETS X 1 TODAY. THEN 1 TABLET DAILY X 5 DAYS 06-28 00:00: 00 10-21 00:00 :00 No 20 Rock Reynaga PANTOPRAZOL E [address]MG DR 06-27 00:00: 00 Yes Rock Reynaga LOSARTAN 100MG - 00:00: 00 Yes Rock Reynaga FUROSEMIDE 40MG 06-25 00:00: 00 Yes Rock Reynaga metformin ER 500 mg 24 hr tablet 06-24 00:00: 00 Yes 500mg Take 1 tablet by mouth daily with breakfast. [facility] HYDROCORTIS O 2.5% CRE 2022-06- 00:00: 00 Yes Rock Reynaga TAKE 1 TABLET BY MOUTH EVERY DAY 2022-06 00:00: 00 Yes Rock Reynaga LEVOTHYROXI N 25MCG 2022-06- 00:00: 00 Yes Rock Reynaga TAKE 1 TABLET BY MOUTH EVERY DAY 2022-06- 00:00: 00 Yes Rock Reynaga ATENOLOL 100MG 2022-06- 00:00: 00 Yes Rock Reynaga 1 TABLET BY MOUTH WITH MEAL ORALLY TWICE A DAY 2022-06 00:00: 00 Yes Rock Reynaga HYDROCORTIS O 2.5% CRE 2022-06 00:00: 00 Yes Rock Reynaga FAMOTIDINE 40MG 2022-06 00:00: 00 Yes Rock Reynaga TAKE 1 TABLET BY MOUTH EVERY DAY IN THE EVENING FOR 90 DAYS 2022-06 00:00: 00 Yes Rock Reynaga TAKE 1 TABLET BY MOUTH EVERY DAY FOR 30 DAYS 2022-06- 00:00: 00 Yes Rock Reynaga METFORMIN ER 500MG GP 2022-06 1- 00:00: 00 Yes Rock Reynaga TAKE 1 TABLET BY MOUTH EVERY DAY 2022-06 00:00: 00 Yes Rock Reynaga SPIRONOLACT 25MG 2022-06 00:00: 00 Yes Rock Reynaga ALBUTER 3ML 0.083% 2022-06 0-27 00:00: 00 Yes Rock Reynaga FUROSEMIDE 40MG 2022-06 0- 00:00: 00 Yes Rock Reynaga PANTOPRAZOL E 40MG DR 2022-06 0-06 00:00: 00 Yes 40 Rock Reynaga LOSARTAN 100MG 2022-06 0-06 00:00: 00 Yes [id number] Rock Reynaga TAKE 1 CAPSULE BY MOUTH EVERY 12 HOURS FOR 7 DAYS 2022-06 0-04 00:00: 00 Yes Rock Reynaga HYDROCO/APA P 5-325MG 03-11 00:00: 00 Yes Rock Reynaga OXYBUTYNIN 5MG ER 03-07 00:00: 00 Yes 5000 Rock Reynaga esomeprazol e 40 mg capsule 02-21 13:01: 19 Yes 40mg Take 1 capsule by mouth in the morning. [facility] budesonide- formoteroL 160-4.5 mcg/actuati on inhaler 02-21 13:01: 19 Yes 2{puff} Inhale 2 Puffs in the morning and 2 Puffs in the evening. [facility] nitroglycer in (NITROSTAT) 0.4 mg sublingual tablet 02-21 13:01: [address] 1 tablet under the tongue every 5 (five) minutes as needed for Chest pain. [facility] mometasone (NASONEX) 50 mcg/actuati on nasal spray 02-21 13:01: 19 Yes 1{spray } Use 1 [place] in each nostril. [facility] clopidogreL (PLAVIX) 75 mg tablet 02-21 13:01: 19 Yes 75mg Take 1 tablet by mouth in the morning. [facility] scopolamine transdermal 1 mg over 3 days patch 02-21 13:01: 19 Yes 1.5mg Apply 1 Patch to area(s) every 72 (seventy-t wo) hours. Pt uses as needed [facility] venlafaxine XR 150 mg 24 hr capsule 02-21 13:01: 19 Yes 150mg Take 1 capsule by mouth in the morning. [facility] estradioL 0.01 % (0.1 mg/gram) vaginal cream 02-21 00:00: 00 Yes [id number] 1g Insert 1 g into vagina every 72 (seventy-t wo) hours. [facility] ESTRADIOLVA G 0.01% CRE 02-21 00:00: 00 Yes Rock Reynaga TAKE 1 TABLET BY MOUTH EVERY DAY 01-28 00:00: 00 Yes Rock Reynaga metFORMIN HCl ER 500 MG metFORMIN HCl ER 500 MG 01-27 00:00: 00 No BID metFORMIN HCl ER 500 MG 1 TAB WITH MEAL ORALLY TWICE A DAY 90 DAYS 01-27 00:00: 00 Yes Rock Reynaga CLOPIDOGREL 75MG 01-27 00:00: 00 Yes Rock Reynaga ROSUVASTATI N 20MG 01-27 00:00: 00 Yes Rock Reynaga SPIRONOLACT 25MG 01-27 00:00: 00 Yes [id number] Rock Reynaga DICYCLOMINE 20MG 01-26 00:00: 00 Yes Rock Reynaga TAKE 1 TABLET BY MOUTH EVERY DAY IN THE MORNING ON AN EMPTY STOMACH FOR 30 DAYS - 00:00: 00 Yes Rock Reynaga DICYCLOMINE 20MG 01-09 00:00: 00 Yes Rock Reynaga budesonide- formoteroL 160-4.5 mcg/actuati on inhaler 01-03 11:15: 50 Yes 2{puff} Inhale 2 Puffs in the morning and 2 Puffs in the evening. [facility] nitroglycer in (NITROSTAT) 0.4 mg sublingual tablet 01-03 11:15: [address] 1 tablet under the tongue every 5 (five) minutes as needed for Chest pain. [facility] mometasone (NASONEX) 50 mcg/actuati on nasal spray 01-03 11:15: 50 Yes 1{spray } Use 1 [place] in each nostril. [facility] clopidogreL (PLAVIX) 75 mg tablet 01-03 11:15: 50 Yes 75mg Take 1 tablet by mouth in the morning. [facility] ergocalcife rol, vitamin D2, (VITAMIN D ORAL) 01-03 11:15: 50 Yes Take by mouth. [facility] scopolamine transdermal 1 mg over 3 days patch 01-03 11:15: 50 Yes 1.5mg Apply 1 Patch to area(s) every 72 (seventy-t wo) hours. Pt uses as needed [facility] venlafaxine XR 150 mg 24 hr capsule 01-03 11:15: 50 Yes 150mg Take 1 capsule by mouth in the morning. [facility] esomeprazol e 40 mg capsule 01-03 11:15: 49 Yes 40mg Take 1 capsule by mouth in the morning. [facility] TAKE 1 TABLET BY MOUTH EVERY DAY 12-31 00:00: 00 Yes Rock Reynaga triamcinolo ne acetonide (KENALOG) injection 12-30 14:35: 00 Yes PRN, Starting on Fri12/30/22 at 0935, Until Discontinu ed, Routine, Intra-op [facility] iohexoL (OMNIPAQUE 300-50 mL)) injection 12-30 14:34: 00 Yes PRN, Starting on Fri12/30/22 at 0934, Until Discontinu ed, Routine, Intra-op [facility] lidocaine 1% (XYLOCAINE) 10 mg/mL (1 %) injection 12-30 14:33: 00 Yes PRN, Starting on Fri12/30/22 at 0933, Until Discontinu ed, Routine, Intra-op [facility] bupivacaine (preserv free) (SENSORCAIN E MPF) 0.25 % (2.5 mg/mL) injection 12-30 14:33: 00 Yes PRN, Starting on Fri12/30/22 at 0933, Until Discontinu ed, Routine, Intra-op [facility] lactated ringers IV infusion 1,000 mL 12-30 14:00: 00 12-30 14:15 :00 No 1000mL at 42 mL/hr, 1,000 mL, IV Infusion, ONCE, 1 dose, On Fri12/30/22 at 0900, Routine, DSU Pre-op [facility] clopidogreL (PLAVIX) 75 mg tablet 12-30 09:00: 19 Yes 75mg Take 1 tablet by mouth in the morning. [facility] esomeprazol e 40 mg capsule 12-30 08:58: 06 Yes 40mg Take 1 capsule by mouth in the morning. [facility] budesonide- formoteroL 160-4.5 mcg/actuati on inhaler 12-30 08:58: 06 Yes 2{puff} Inhale 2 Puffs in the morning and 2 Puffs in the evening. [facility] nitroglycer in (NITROSTAT) 0.4 mg sublingual tablet 12-30 08:58: [address] 1 tablet under the tongue every 5 (five) minutes as needed for Chest pain. [facility] mometasone (NASONEX) 50 mcg/actuati on nasal spray 12-30 08:58: 06 Yes 1{spray } Use 1 [place] in each nostril. [facility] ergocalcife rol, vitamin D2, (VITAMIN D ORAL) 12-30 08:58: 06 Yes Take by mouth. [facility] scopolamine transdermal 1 mg over 3 days patch 12-30 08:58: 06 Yes 1.5mg Apply 1 Patch to area(s) every 72 (seventy-t wo) hours. Pt uses as needed [facility] venlafaxine XR 150 mg 24 hr capsule 12-30 08:58: 06 Yes 150mg Take 1 capsule by mouth in the morning. [facility] LINZESS 145MCG 12-24 00:00: 00 Yes Rock Reynaga VENLAFAXINE 150MG ER 12-24 00:00: 00 Yes Rock Reynaga FUROSEMIDE 40MG 12-21 00:00: 00 Yes Rock Reynaga PANTOPRAZOL E 40MG DR 12-21 00:00: 00 Yes [id number] Rock Reynaga ALBUTER 3ML 0.083% 12-17 00:00: 00 Yes Rock Reynaga CREON [id number] 12-16 00:00: 00 Yes Rock Reynaga SIMVASTATIN 40MG 12-11 00:00: 00 Yes [id number] Rock Reynaga CHLORHEX GLU 0.12% FELIX 12-10 00:00: 00 Yes Rock Reynaga HYDROCO/APA P 5-325MG 12-10 00:00: 00 Yes Rock Reynaga CLINDAMYCIN 150MG 12-10 00:00: 00 Yes Rock Reynaga TAKE 2 CAPSULES EVERY 8 HOURS FOR 2 DAYS,THEN 1 CAPSULE EVERY 8 HOURS UNTIL ALL TAKEN 12-09 00:00: 00 Yes Rock Reynaga RINSE INDICATED AT BEDTIME 12-09 00:00: 00 Yes Rock Reynaga OXYBUTYNIN 5MG ER 12-07 00:00: 00 Yes Rock Reynaga TAKE 1 TABLET BY MOUTH EVERY DAY 11-21 00:00: 00 Yes Rock Reynaga PROAIR RESPI INH 11-18 00:00: 00 Yes Rock Reynaga TAKE 1 CAPSULE BY MOUTH BEFORE MEAL 11-14 00:00: 00 Yes Rock Reynaga HYDROCORTIS O 2.5%RECT CRE 11-14 00:00: 00 Yes Rock Reynaga TAKE 1 TABLET BY MOUTH EVERY DAY 11-11 00:00: 00 Yes Rock Reynaga triamcinolo ne acetonide (KENALOG) injection 10-28 13:40: 00 Yes PRN, Starting on Fri10/28/22 at 0840, Until Discontinu ed, Routine, [facility]-op [facility] iohexoL (OMNIPAQUE 300-50 mL)) injection 10-28 13:22: 00 Yes PRN, Starting on Fri10/28/22 at 0822, Until Discontinu ed, Routine, Intra-op [facility] bupivacaine (preserv free) (SENSORCAIN E MPF) 0.25 % (2.5 mg/mL) injection 10-28 13:22: 00 Yes PRN, Starting on Fri10/28/22 at 0822, Until Discontinu ed, Routine, Intra-op [facility] lidocaine 1% (XYLOCAINE) 10 mg/mL (1 %) injection 10-28 13:21: 00 Yes PRN, Starting on Fri10/28/22 at 0821, Until Discontinu ed, Routine, Intra-op [facility] lactated ringers IV infusion 1,000 mL 10-28 12:30: 00 10-28 12:25 :00 No 1000mL at 42 mL/hr, 1,000 mL, IV Infusion, ONCE, 1 dose, On Fri10/28/22 at 0730, Routine, DSU Pre-op [facility] esomeprazol e 40 mg capsule 10-28 09:54: 30 Yes 40mg Take 1 capsule by mouth in the morning. [facility] budesonide- formoteroL 160-4.5 mcg/actuati on inhaler 10-28 09:54: 30 Yes 2{puff} Inhale 2 Puffs in the morning and 2 Puffs in the evening. [facility] nitroglycer in (NITROSTAT) 0.4 mg sublingual tablet 10-28 09:54: [address] 1 tablet under the tongue every 5 (five) minutes as needed for Chest pain. [facility] mometasone (NASONEX) 50 mcg/actuati on nasal spray 10-28 09:54: 30 Yes 1{spray } Use 1 [place] in each nostril. [facility] clopidogreL (PLAVIX) 75 mg tablet 10-28 09:54: 30 Yes 75mg Take 1 tablet by mouth in the morning. [facility] ergocalcife rol, vitamin D2, (VITAMIN D ORAL) 10-28 09:54: 30 Yes Take by mouth. [facility] scopolamine transdermal 1 mg over 3 days patch 10-28 09:54: 30 Yes 1.5mg Apply 1 Patch to area(s) every 72 (seventy-t wo) hours. Pt uses as needed [facility] venlafaxine XR 150 mg 24 hr capsule 10-28 09:54: 30 Yes 150mg Take 1 capsule by mouth in the morning. [facility] TAKE 1 TABLET BY MOUTH EVERY DAY IN THE MORNING ON EMPTY STOMACH FOR 90 DAYS 10-28 00:00: 00 Yes Rock Reynaga TAKE 1 CAPSULE BY MOUTH EVERY DAY 10-28 00:00: 00 Yes Rock Reynaga TAKE 1 CAPSULE BY MOUTH EVERY DAY 10-28 00:00: 00 Yes Rock Reynaga TAKE 1 TABLET BY MOUTH EVERY DAY FOR 90 DAYS 10-28 00:00: 00 Yes Rock Reynaga TAKE 1 CAPSULE BY MOUTH TWICE A DAY NEEDED 10-28 00:00: 00 Yes Rock Reynaga CLOPIDOGREL 75MG 10-27 00:00: 00 Yes Rock Reynaga SPIRONOLACT 25MG 10-27 00:00: 00 Yes [id number] Rock Reynaga TAKE 1 TABLET BY MOUTH EVERY DAY 10-25 00:00: 00 Yes Rock Reynaga ROSUVASTATI N 20MG 2023-0 5-02 00:00: 00 Yes Rock Reynaga TAKE 1 TABLET BY MOUTH EVERY 12 HOURS FOR 3 DAYS 3-0 4-21 00:00: 00 Yes Rock Reynaga IBUPROFEN 600MG 2022-0 4-21 00:00: 00 Yes Rock Reynaga TAKE 1 CAPSULE BY MOUTH EVERY DAY FOR 14 DAYS 2023-0 4-21 00:00: 00 Yes Rock Reynaga TAKE 1 CAPSULE EVERY 12 HOURS FOR 5 DAYS 2022-0 4-21 00:00: 00 Yes Rock Reynaga 1 TABLET(S) EVERY 12 HOURS NEEDED ORAL 3-0 4-18 00:00: 00 Yes Rock Reynaga LOSARTAN 100MG 2022-0 4-18 00:00: 00 Yes Rock Reynaga TAKE 1 TABLET BY MOUTH EVERY DAY 2022-0 4-18 00:00: 00 Yes Rock Reynaga PROAIR RESPI INH 2022-0 4-18 00:00: 00 Yes [id number] Rock Reynaga LEVOTHYROXI N 25MCG 2022-0 4-18 00:00: 00 Yes [id number] Rock Reynaga TAKE 1 TABLET BY MOUTH EVERY DAY 2022-0 4-18 00:00: 00 Yes Rock Reynaga TAKE 1 CAPSULE BY MOUTH TWICE A DAY NEEDED 2022-0 4-14 00:00: 00 Yes Rock Reynaga VENLAFAXINE 150MG ER 2022-0 4-14 00:00: 00 Yes [id number] Rock Reynaga LINZESS 145MCG 2022-0 4-14 00:00: 00 Yes [id number] Rock Reynaga ATENOLOL 100MG 2022-0 4-13 00:00: 00 Yes [id number] Rock Reynaga PANTOPRAZOL E 40MG DR 2022-0 4-11 00:00: 00 Yes [id number] Rock Reynaga FUROSEMIDE 40MG 3-0 4-11 00:00: 00 Yes [id number] Rock Reynaga TAKE 1 TABLET BY MOUTH EVERY DAY 2022-0 4-10 00:00: 00 Yes Rock Reynaga SIMVASTATIN 40MG 2022-0 4-01 00:00: 00 Yes [id number] Rock Reynaga TAKE 1 TABLET BY MOUTH TWICE A DAY FOR 7 DAYS 2022-0 3-21 00:00: 00 Yes Rock Reynaga simvastatin 40 mg tablet 2022-0 3-18 00:00: 00 Yes 40mg Take 1 tablet by mouth in the morning. [facility] TAKE 1 CAPSULE BY MOUTH TWICE A DAY NEEDED 09-02 00:00: 00 Yes Rock Reynaga TAKE 1 TABLET BY MOUTH EVERY DAY 09-02 00:00: 00 Yes Rock Reynaga TAKE 1 TABLET BY MOUTH EVERY DAY 09-02 00:00: 00 Yes Rock Reynaga TAKE 1 TABLET BY MOUTH EVERY DAY IN THE MORNING ON EMPTY STOMACH FOR 90 DAYS 09-02 00:00: 00 Yes Rock Reynaga TAKE 1 TABLET BY MOUTH EVERY DAY 09-02 00:00: 00 Yes Rock Reynaga esomeprazol e 40 mg capsule 08-29 13:45: 28 Yes 40mg Take 1 capsule by mouth in the morning. [facility] budesonide- formoteroL 160-4.5 mcg/actuati on inhaler 08-29 13:45: 28 Yes 2{puff} Inhale 2 Puffs in the morning and 2 Puffs in the evening. [facility] nitroglycer in (NITROSTAT) 0.4 mg sublingual tablet 08-29 13:45: [address] 1 tablet under the tongue every 5 (five) minutes as needed for Chest pain. [facility] mometasone (NASONEX) 50 mcg/actuati on nasal spray 08-29 13:45: 28 Yes 1{spray } Use 1 [place] in each nostril. [facility] clopidogreL (PLAVIX) 75 mg tablet 08-29 13:45: 28 Yes 75mg Take 1 tablet by mouth in the morning. [facility] ergocalcife rol, vitamin D2, (VITAMIN D ORAL) 08-29 13:45: 28 Yes Take by mouth. [facility] scopolamine transdermal 1 mg over 3 days patch 08-29 13:45: 28 Yes 1.5mg Apply 1 Patch to area(s) every 72 (seventy-t wo) hours. Pt uses as needed [facility] venlafaxine XR 150 mg 24 hr capsule 08-29 13:45: 28 Yes 150mg Take 1 capsule by mouth in the morning. [facility] TAKE 1 TABLET BY MOUTH EVERY DAY 08-22 00:00: 00 Yes Rock Reynaga lactated ringers IV infusion 1,000 mL 08-19 15:00: 00 Yes 1000mL at 50 mL/hr, 1,000 mL, IV Infusion, CONTINUOUS , Starting on Fri08/19/22 at 0900, Until Discontinu ed, Routine, PACU [facility] ondansetron (ZOFRAN (PF)) injection 4 mg 08-19 14:45: 53 Yes 4mg 4 mg, Slow IV Push, PRN, 1 dose, Starting on Fri08/19/22 at 0845, Until Discontinu ed, Routine, Nausea and Vomiting (N/V), PACU [facility] iohexoL (OMNIPAQUE 300-50 mL)) injection 08-19 13:42: 00 08-19 13:48 :18 No PRN, Starting on Fri08/19/22 at 0742, Until Fri08/19/22 at 0748, Routine, Intra-op [facility] bupivacaine (preserv free) (SENSORCAIN E MPF) 0.25 % (2.5 mg/mL) injection 08-19 13:41: 00 Yes PRN, Starting on Fri08/19/22 at 0741, Until Discontinu ed, Routine, Intra-op [facility] triamcinolo ne acetonide (KENALOG) injection 08-19 13:40: 00 Yes PRN, Starting on Fri08/19/22 at 0740, Until Discontinu ed, Routine, Intra-op [facility] lidocaine 1% (XYLOCAINE) 10 mg/mL (1 %) injection 08-19 13:40: 00 Yes PRN, Starting on Fri08/19/22 at 0740, Until Discontinu ed, Routine, Intra-op [facility] bupivacaine (preserv free) (SENSORCAIN E MPF) 0.25 % (2.5 mg/mL) injection 08-19 13:39: 00 08-19 13:48 :18 No PRN, Starting on Fri08/19/22 at 0739, Until Fri08/19/22 at 0748, Routine, Intra-op [facility] esomeprazol e 40 mg capsule 08-19 08:46: 35 Yes 40mg Take 40 mg by mouth daily. [facility] budesonide- formoteroL 160-4.5 mcg/actuati on inhaler 08-19 08:46: 35 Yes 2{puff} Inhale 2 Puffs 2 (two) times daily. [facility] nitroglycer in (NITROSTAT) 0.4 mg sublingual tablet 08-19 08:46: [address] 0.4 mg under the tongue every 5 (five) minutes as needed for Chest pain. [facility] mometasone (NASONEX) 50 mcg/actuati on nasal spray 08-19 08:46: 35 Yes 1{spray } Use 1 [place] in each nostril. [facility] clopidogreL (PLAVIX) 75 mg tablet 08-19 08:46: 35 Yes 75mg Take 1 tablet by mouth in the morning. [facility] ergocalcife rol, vitamin D2, (VITAMIN D ORAL) 08-19 08:46: 35 Yes Take by mouth. [facility] scopolamine transdermal 1 mg over 3 days patch 08-19 08:46: 35 Yes 1{patch } Apply 1 Patch to area(s) every 72 (seventy-t wo) hours. [facility] venlafaxine XR 150 mg 24 hr capsule 08-19 08:46: 35 Yes 150mg Take 150 mg by mouth in the morning. [facility] spironolact one 25 mg tablet 08-19 00:00: 00 Yes 25mg Take 1 tablet by mouth in the morning. [facility] TAKE 1 TABLET BY MOUTH EVERY DAY 08-19 00:00: 00 Yes Rock Reynaga TAKE 1 TABLET BY MOUTH EVERY DAY FOR 90 DAYS 08-19 00:00: 00 Yes Rock Reynaga isosorbide mononitrate 60 mg 24 hr tablet 2- 00:00: 00 Yes 60mg Take 1 tablet by mouth in the morning. [facility] TAKE 1 TABLET BY MOUTH AT BEDTIME 2 00:00: 00 Yes Rock Reynaga rosuvastati n 20 mg tablet - 00:00: 00 Yes 1{tbl} Take 1 tablet by mouth in the morning. [facility] rosuvastati n 20 mg tablet 08-02 00:00: 00 Yes 20mg Take 1 tablet by mouth in the morning. [facility] levothyroxi ne 25 mcg tablet 08-02 00:00: 00 Yes 25ug Take 1 tablet by mouth every morning. [facility] TAKE 1 CAPSULE BY MOUTH EVERY DAY 08-02 00:00: 00 Yes Rock Reynaga TAKE 1 CAPSULE BY MOUTH EVERY DAY 08-02 00:00: 00 Yes Rock Reynaga esomeprazol e 40 mg capsule 07-23 14:28: 00 Yes 40mg Take 40 mg by mouth daily. [facility] budesonide- formoteroL 160-4.5 mcg/actuati on inhaler 07-23 14:28: 00 Yes 2{puff} Inhale 2 Puffs 2 (two) times daily. [facility] nitroglycer in (NITROSTAT) 0.4 mg sublingual tablet 07-23 14:28: [address] 0.4 mg under the tongue every 5 (five) minutes as needed for Chest pain. [facility] mometasone (NASONEX) 50 mcg/actuati on nasal spray 07-23 14:28: 00 Yes 1{spray } Use 1 [place] in each nostril. [facility] clopidogreL (PLAVIX) 75 mg tablet 07-23 14:28: 00 Yes 75mg Take 75 mg by mouth daily. [facility] ergocalcife rol, vitamin D2, (VITAMIN D ORAL) 07-23 14:28: 00 Yes Take by mouth. [facility] scopolamine transdermal 1 mg over 3 days patch 07-23 14:28: 00 Yes 1{patch } Apply 1 Patch to area(s) every 72 (seventy-t wo) hours. [facility] venlafaxine XR 150 mg 24 hr capsule 07-23 14:28: 00 Yes 150mg Take 150 mg by mouth in the morning. [facility] TRELEGY ELLIPTA 200-62.5-25 mcg DsDv 07-22 00:00: 00 Yes 1{puff} Inhale 1 Puff in the morning. [facility] INHALE 1 PUFF ONCE DAILY 07-22 00:00: 00 Yes Rock Reynaga USE 2 PUFF(S) INHALED EVERY 4 HOURS NEEDED 30 DAYS 07-22 00:00: 00 Yes Rock Reynaga TAKE 1 TABLET BY MOUTH EVERY 12 HOURS FOR 7 DAYS 07-19 00:00: 00 Yes Rock Reynaga metroNIDAZO LE 500 mg tablet 07-19 00:00: 00 07-27 05:59 :00 No [id number] 500mg Take 1 tablet by mouth every 12 (twelve) hours for 7 days. [facility] esomeprazol e 40 mg capsule 07-17 13:17: 53 Yes 40mg Take 40 mg by mouth daily. [facility] budesonide- formoteroL 160-4.5 mcg/actuati on inhaler 07-17 13:17: 53 Yes 2{puff} Inhale 2 Puffs 2 (two) times daily. [facility] clopidogreL (PLAVIX) 75 mg tablet 07-17 13:17: 53 Yes 75mg Take 75 mg by mouth daily. [facility] scopolamine transdermal 1 mg over 3 days patch 07-17 13:17: 53 Yes 1{patch } Apply 1 Patch to area(s) every 72 (seventy-t wo) hours. [facility] venlafaxine XR 150 mg 24 hr capsule 07-17 13:17: 53 Yes 150mg Take 150 mg by mouth in the morning. [facility] mupirocin 2 % ointment 07-17 00:00: 00 Yes [id number] Apply to area(s) 3 (three) times daily. [facility] fluconazole 150 mg tablet 07-17 00:00: 00 Yes [id number] 150mg Take 1 tablet by mouth every other day. [facility] APPLY TO AFFECTED AREA 3 TIMES A DAY 07-17 00:00: 00 Yes Rock Reynaga TAKE 1 TABLET BY MOUTH EVERY OTHER DAY 07-17 00:00: 00 Yes Rock Reynaga TAKE 1 CAPSULE BY MOUTH EVERY DAY 07-15 00:00: 00 Yes Rock Reynaga TAKE 1 TABLET BY MOUTH EVERY DAY IN THE MORNING FOR 30 DAYS 07-15 00:00: 00 Yes Rock Reynaga TAKE 1 TABLET BY MOUTH EVERY DAY IN THE EVENING 07-15 00:00: 00 Yes Rock Reynaga TAKE 1 TABLET BY MOUTH EVERY DAY 07-15 00:00: 00 Yes Rock Reynaga TAKE 1 CAPSULE BY MOUTH TWICE A DAY NEEDED 07-15 00:00: 00 Yes Rock Reynaga TAKE 1 TABLET BY MOUTH AT BEDTIME 07-11 00:00: 00 Yes Rock Reynaga TAKE 1 TABLET BY MOUTH TWICE A DAY FOR 7 DAYS 07-01 00:00: 00 Yes Rock Reynaga TAKE 6 TABLETS ON DAY 1 DIRECTED ON PACKAGE AND DECREASE BY 1 TAB EACH DAY FOR A TOTAL OF 6 DAYS 07-01 00:00: 00 Yes Rock Reynaga TAKE BY MOUTH 2 TABLETS ON DAY 1 THEN 1 TABLET EVERY 24 HOURS AFTER FOR THE NEXT 4 DAYS 07-01 00:00: 00 Yes Rock Reynaga TAKE 1 TABLET BY MOUTH EVERY DAY 2021-06 00:00: 00 Yes Rock Reynaga losartan 100 mg tablet 2021-06 00:00: 00 Yes 1{tbl} Take 1 tablet by mouth in the morning. [facility] losartan 100 mg tablet 2021-06 00:00: 00 Yes 100mg Take 1 tablet by mouth in the morning. [facility] TAKE 1 TABLET BY MOUTH AT BEDTIME 2021-06 00:00: 00 Yes Rock Reynaga TAKE 2 TABLETS BY MOUTH WITH FOOD OR MILK EVERY DAY FOR 5 DAYS 2021-06 00:00: 00 Yes Rock Reynaga BENZONATATE 200 MG 2021-06 00:00: 00 Yes Rock Reynaga DICLOFENAC SODIUM DR 75 MG TBEC 2021-06 00:00: 00 Yes Rock Reynaga TAKE 1 TABLET BY MOUTH TWO TIMES DAILY NEEDED 2021-06 00:00: 00 Yes Rock Reynaga TAKE 1 TABLET BY MOUTH EVERY DAY 2021-06 00:00: 00 Yes Rock Reynaga TAKE 1 CAPSULE BY MOUTH EVERY DAY 2021-06 00:00: 00 Yes Rock Reynaga CLOPIDOGREL 75 MG TABS 2021-06 00:00: 00 Yes Rock Reynaga ISOSORBIDE MONONITRATE ER 60 MG TB24 2021-06 00:00: 00 Yes Rock Reynaga SPIRONOLACT ONE 25 MG TABS 2021-06 00:00: 00 Yes Rock Reynaga LOSARTAN POTASSIUM 100 MG TABS 2021-06 00:00: 00 Yes Rock Reynaga TAKE 1 CAPSULE BY MOUTH EVERY DAY 2021-06 00:00: 00 Yes Rock Reynaga TAKE 1 TABLET BY MOUTH EVERY DAY IN THE MORNING ON EMPTY STOMACH FOR 90 DAYS 2021-06 00:00: 00 Yes Rock Reynaga ATENOLOL 100 MG TABS 2021-06 00:00: 00 Yes Rock Reynaga TAKE 1 TABLET BY MOUTH EVERY DAY IN THE MORNING ON EMPTY STOMACH FOR 90 DAYS 2021-06 00:00: 00 Yes Rock Reynaga TAKE 1 TABLET BY MOUTH EVERY DAY 2021-06 00:00: 00 Yes Rock Reynaga TAKE 5ML BY MOUTH SWISH AND SPIT 4 TIMES A DAY FOR 7 DAYS,DO NOT SWALLOW 2021-06 00:00: 00 Yes Rock Reynaga AZITHROMYCI N 250 MG TABS 2021-06 00:00: 00 Yes Rock Reynaga TAKE 1 TABLET BY MOUTH EVERY DAY 2021-06 00:00: 00 Yes Rock Reynaga SPRAY 2 SPRAYS INTO EACH NOSTRIL EVERY DAY 2021-06 00:00: 00 Yes Rock Reynaga Dose Unknown 2021-06 00:00: 00 Yes Rock Reynaga TAKE 1 TABLET BY MOUTH EVERY DAY 2021-06 00:00: 00 Yes Rock Reynaga TAKE 1 TABLET BY MOUTH TWICE A DAY FOR 7 DAYS 2021-06 00:00: 00 No TETRACYCLIN E HYDROCHLORI DE 500 MG 03-19 00:00: 00 Yes Rock Reynaga METRONIDAZO LE 500 MG TABS 03-19 00:00: 00 Yes Rock Reynaga TAKE 2 CAPSULES WITH MEAL AND WITH SNACK 03-17 00:00: 00 Yes Rock Reynaga SCOPOLAMINE 1 MG/3DAYS PT72 03-07 00:00: 00 Yes Rock Reynaga TAKE 1 TABLET BY MOUTH EVERY DAY 02-28 00:00: 00 Yes Rock Reynaga ISOSORBIDE MONONITRATE ER 60 MG TB24 02-18 00:00: 00 Yes Rock Reynaga VENLAFAXINE HCL ER 150 MG CP24 02-18 00:00: 00 Yes Rock Reynaga LINZESS 145 MCG 02-18 00:00: 00 Yes Rock Reynaga TAKE 1 TABLET BY MOUTH EVERY DAY FOR 90 DAYS 02-18 00:00: 00 Yes Rock Reynaga 1 TABLET(S) EVERY 12 HOURS NEEDED ORAL 02-11 00:00: 00 Yes Rock Reynaga TAKE 1 CAPSULE BY MOUTH ONCE A WEEK FOR 12 WEEKS 28 02-05 00:00: 00 Yes Rock Reynaga triamcinolo ne acetonide (KENALOG) injection 02-04 13:30: 00 02-04 16:21 :10 No PRN, Starting on Fri02/04/22 at 0830, Until Fri02/04/22 at 1121, Rout[facility]% (XYLOCAINE) 10 mg/mL (1 %) injection 02-04 13:30: 00 02-04 16:21 :10 No PRN, Starting on Fri02/04/22 at 0830, Until Fri02/04/22 at 1121, Routine, Intra-op [facility] iohexoL (OMNIPAQUE 300-50 mL)) injection 02-04 13:30: 00 02-04 16:21 :10 No PRN, Starting on Fri02/04/22 at 0830, Until Fri02/04/22 at 1121, Routine, Intra-op [facility] bupivacaine (preserv free) (SENSORCAIN E MPF) 0.25 % (2.5 mg/mL) injection 02-04 13:30: 00 02-04 16:21 :10 No PRN, Starting on Fri02/04/22 at 0830, Until Fri02/04/22 at 1121, Routine, Intra-op [facility] lactated ringers IV infusion 1,000 mL 02-04 12:15: 00 02-04 12:14 :00 No 1000mL at 42 mL/hr, 1,000 mL, IV Infusion, ONCE, 1 dose, On Fri02/04/22 at 0715, Routine, DSU Pre-op [facility] esomeprazol e 40 mg capsule 02-04 09:21: 06 Yes 40mg Take 40 mg by mouth daily. [facility] it[facility] budesonide- formoteroL 160-4.5 mcg/actuati on inhaler 02-04 09:21: 06 Yes 2{puff} Inhale 2 Puffs 2 (two) times daily. [facility] ity [facility] nitroglycer in (NITROSTAT) 0.4 mg sublingual tablet 02-04 09:21: [address] 0.4 mg under the tongue every 5 (five) minutes as needed for Chest pain. [facility] ity [facility] mometasone (NASONEX) 50 mcg/actuati on nasal spray 02-04 09:21: 06 Yes 1{spray } Use 1 [place] in each nostril. [facility] clopidogreL (PLAVIX) 75 mg tablet 02-04 09:21: 06 Yes 75mg Take 75 mg by mouth daily. [facility] ergocalcife rol, vitamin D2, (VITAMIN D ORAL) 02-04 09:21: 06 Yes Take by mouth. [facility] scopolamine transdermal 1 mg over 3 days patch 02-04 09:21: 06 Yes 1{patch } Apply 1 Patch to area(s) every 72 (seventy-t wo) hours. [facility] venlafaxine XR 150 mg 24 hr capsule 02-04 09:21: 06 Yes 150mg Take 150 mg by mouth in the morning. [facility] ALBUTEROL SULFATE HFA 108 (90 Base) MCG/ACT AERS 01-31 00:00: 00 Yes Rock Reynaga venlafaxine XR 150 mg 24 hr capsule 01-29 11:15: 29 Yes 150mg Take 1 capsule by mouth in the morning. [facility] nitroglycer in (NITROSTAT) 0.4 mg sublingual tablet 01-29 11:11: [address] 0.4 mg under the tongue every 5 (five) minutes as needed for Chest pain. [facility] mometasone (NASONEX) 50 mcg/actuati on nasal spray 01-29 11:11: 55 Yes 1{spray } Use 1 [place] in each nostril. [facility] esomeprazol e 40 mg capsule 01-29 11:11: 54 Yes 40mg Take 40 mg by mouth daily. [facility] budesonide- formoteroL 160-4.5 mcg/actuati on inhaler 01-29 11:11: 54 Yes 2{puff} Inhale 2 Puffs 2 (two) times daily. [facility] clopidogreL (PLAVIX) 75 mg tablet 01-29 11:11: 54 Yes 75mg Take 75 mg by mouth daily. [facility] ergocalcife rol, vitamin D2, (VITAMIN D ORAL) 01-29 11:11: 54 Yes Take by mouth. [facility] scopolamine transdermal 1 mg over 3 days patch 01-29 11:11: 54 Yes 1{patch } Apply 1 Patch to area(s) every 72 (seventy-t wo) hours. [facility] TAKE 1 TABLET BY MOUTH EVERY DAY IN THE MORNING ON EMPTY STOMACH FOR 90 DAYS 01-28 00:00: 00 Yes Rock Reynaga ATENOLOL 100 MG TABS 01-28 00:00: 00 Yes Rock Reynaga ondansetron (ZOFRAN (PF)) injection 4 mg 01-21 13:05: 10 Yes 4mg 4 mg, Slow IV Push, PRN, 1 dose, Starting on Fri01/21/22 at 0805, Until Discontinu ed, Routine, Nausea and Vomiting (N/V), PACU [facility] bupivacaine (preserv free) (SENSORCAIN E MPF) 0.25 % (2.5 mg/mL) injection 01-21 12:40: 00 01-21 12:42 :04 No PRN, Starting on Fri01/21/22 at 0740, Until Fri01/21/22 at 0742, Routine, Intra-op [facility] triamcinolo ne acetonide (KENALOG) injection 01-21 12:31: 00 Yes PRN, Starting on Fri01/21/22 at 0731, Until Discontinu ed, Routine, Intra-op [facility] iohexoL (OMNIPAQUE 300-50 mL)) injection 01-21 12:31: 00 01-21 12:42 :04 No PRN, Starting on Fri01/21/22 at 0731, Until Fri01/21/22 at 0742, Routine, Intra-op [facility] lidocaine 1% (XYLOCAINE) 10 mg/mL (1 %) injection 01-21 12:30: 00 Yes PRN, Starting on Fri01/21/22 at 0730, Until Discontinu ed, Routine, Intra-op [facility] sodium citrate-cit jaime acid (BICITRA) 500-334 mg/5 mL solution 30 mL 01-21 12:30: 00 01-21 12:10 :00 No 30mL 30 mL, Oral, ONCE NOW, 1 dose, On Fri01/21/22 at 0730, Routine, DSU Pre-op [facility] lactated ringers IV infusion 1,000 mL 01-21 12:15: 00 01-21 12:09 :00 No 1000mL at 42 mL/hr, 1,000 mL, IV Infusion, ONCE, 1 dose, On Fri01/21/22 at 0715, Routine, DSU Pre-op [facility] esomeprazol e 40 mg capsule 01-21 09:12: 24 Yes 40mg Take 40 mg by mouth daily. [facility] budesonide- formoteroL 160-4.5 mcg/actuati on inhaler 01-21 09:12: 24 Yes 2{puff} Inhale 2 Puffs 2 (two) times daily. [facility] nitroglycer in (NITROSTAT) 0.4 mg sublingual tablet 01-21 09:12: [address] 0.4 mg under the tongue every 5 (five) minutes as needed for Chest pain. [facility] mometasone (NASONEX) 50 mcg/actuati on nasal spray 01-21 09:12: 24 Yes 1{spray } Use 1 [place] in each nostril. [facility] clopidogreL (PLAVIX) 75 mg tablet 01-21 09:12: 24 Yes 75mg Take 75 mg by mouth daily. [facility] ergocalcife rol, vitamin D2, (VITAMIN D ORAL) 01-21 09:12: 24 Yes Take by mouth. [facility] scopolamine transdermal 1 mg over 3 days patch 01-21 09:12: 24 Yes 1{patch } Apply 1 Patch to area(s) every 72 (seventy-t wo) hours. [facility] budesonide- formoteroL 160-4.5 mcg/actuati on inhaler 01-16 10:32: 27 Yes 2{puff} Inhale 2 Puffs 2 (two) times daily. [facility] nitroglycer in (NITROSTAT) 0.4 mg sublingual tablet 01-16 10:32: [address] 0.4 mg under the tongue every 5 (five) minutes as needed for Chest pain. [facility] mometasone (NASONEX) 50 mcg/actuati on nasal spray 01-16 10:32: 27 Yes 1{spray } Use 1 [place] in each nostril. [facility] clopidogreL (PLAVIX) 75 mg tablet 01-16 10:32: 27 Yes 75mg Take 75 mg by mouth daily. [facility] ergocalcife rol, vitamin D2, (VITAMIN D ORAL) 01-16 10:32: 27 Yes Take by mouth. [facility] scopolamine transdermal 1 mg over 3 days patch 01-16 10:32: 27 Yes 1{patch } Apply 1 Patch to area(s) every 72 (seventy-t wo) hours. [facility] TAKE 1 TABLET BY MOUTH EVERY DAY 01-15 00:00: 00 Yes Rock Reynaga NITAZOXANID E 500 MG TABS 01-14 00:00: 00 Yes Rock Reynaga SUPREP BOWEL PREP KIT 17.5-3.13-1 .6 GM/177ML SOLN 01-09 00:00: 00 Yes Rock Reynaga DICYCLOMINE HYDROCHLORI DE 10 MG 01-09 00:00: 00 Yes Rock Reynaga LEVOFLOXACI N 250 MG TABS 01-08 00:00: 00 Yes Rock Reynaga DOXYCYCLINE HYCLATE 100 MG TABS 01-08 00:00: 00 Yes Rock Reynaga ONDANSETRON HYDROCHLORI DE 4 MG TABS 01-08 00:00: 00 Yes Rock Reynaga bupivacaine (preserv free) (SENSORCAIN E MPF) 0.25 % (2.5 mg/mL) injection 01-07 14:15: 00 Yes PRN, Starting on Fri01/07/22 at 0915, Until Discontinu ed, Routine, Intra-op [facility] triamcinolo ne acetonide (KENALOG) injection 01-07 13:22: 00 Yes PRN, Starting on Fri01/07/22 at 0822, Until Discontinu ed, Routine, Intra-op [facility] lidocaine 1% (XYLOCAINE) 10 mg/mL (1 %) injection 01-07 13:21: 00 Yes PRN, Starting on Fri01/07/22 at 0821, Until Discontinu ed, Routine, Intra-op [facility] lactated ringers IV infusion 1,000 mL 01-07 12:00: 00 01-07 12:14 :00 No 1000mL at 42 mL/hr, 1,000 mL, IV Infusion, ONCE, 1 dose, On Fri01/07/22 at 0700, Routine, DSU Pre-op [facility] esomeprazol e 40 mg capsule 01-07 09:20: 10 Yes 40mg Take 40 mg by mouth daily. [facility] budesonide- formoteroL 160-4.5 mcg/actuati on inhaler 01-07 09:20: 10 Yes 2{puff} Inhale 2 Puffs 2 (two) times daily. [facility] nitroglycer in (NITROSTAT) 0.4 mg sublingual tablet 01-07 09:20: [address] 0.4 mg under the tongue every 5 (five) minutes as needed for Chest pain. [facility] mometasone (NASONEX) 50 mcg/actuati on nasal spray 01-07 09:20: 10 Yes 1{spray } Use 1 [place] in each nostril. [facility] clopidogreL (PLAVIX) 75 mg tablet 01-07 09:20: 10 Yes 75mg Take 75 mg by mouth daily. [facility] ergocalcife rol, vitamin D2, (VITAMIN D ORAL) 01-07 09:20: 10 Yes Take by mouth. [facility] scopolamine transdermal 1 mg over 3 days patch 01-07 09:20: 10 Yes 1{patch } Apply 1 Patch to area(s) every 72 (seventy-t wo) hours. [facility] simvastatin 40 mg tablet 01-06 00:00: 00 Yes 40mg Take 40 mg by mouth every evening. [facility] SIMVASTATIN 40 MG TABS 01-06 00:00: 00 Yes Rock Reynaga scopolamine transdermal 1 mg over 3 days patch 01-01 16:55: 04 Yes 1{patch } Apply 1 Patch to area(s) every 72 (seventy-t wo) hours. [facility] esomeprazol e 40 mg capsule 01-01 16:47: 46 Yes 40mg Take 40 mg by mouth daily. [facility] budesonide- formoteroL 160-4.5 mcg/actuati on inhaler 01-01 16:47: 46 Yes 2{puff} Inhale 2 Puffs 2 (two) times daily. [facility] nitroglycer in (NITROSTAT) 0.4 mg sublingual tablet 01-01 16:47: [address] 0.4 mg under the tongue every 5 (five) minutes as needed for Chest pain. [facility] mometasone (NASONEX) 50 mcg/actuati on nasal spray 01-01 16:47: 46 Yes 1{spray } Use 1 [place] in each nostril. [facility] clopidogreL (PLAVIX) 75 mg tablet 01-01 16:47: 46 Yes 75mg Take 75 mg by mouth daily. [facility] ergocalcife rol, vitamin D2, (VITAMIN D ORAL) 01-01 16:47: 46 Yes Take by mouth. [facility] TAKE 1 CAPSULE BY MOUTH TWICE A DAY NEEDED 12-23 00:00: 00 Yes Rock F Ronnell scopolamine 1 mg over 3 days 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 12-13 00:00: 00 Yes 1mg over 3 days Rock Reynaga scopolamine 1 mg over 3 days 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 12-13 00:00: 00 No 1mg over 3 days TAKE 1 TABLET BY MOUTH EVERY 8 HOURS NEEDED 12-12 00:00: 00 Yes Rock Reynaga ondansetron 4 mg disintegrat ing tablet 12-12 00:00: 00 01-01 00:00 :00 No 1{tbl} Take 1 tablet by mouth as needed. [facility] Dose Unknown 12-11 00:00: 00 Yes Rock Reynaga TAKE 1 EACH EVERY 72 HOURS FOR 9 DAY(S) 12-11 00:00: 00 Yes Rock Reynaga Dose Unknown 12-11 00:00: 00 No TAKE 2 TABLETS BY MOUTH ONE TIME DOSE 12-10 00:00: 00 Yes Rock Reynaga prednisone 20 mg tablet 12-05 00:00: 00 Yes mg Rock Reynaga benzonatate 100 mg capsule 12-05 00:00: 00 Yes 12mg Rock Reynaga Dose Unknown 12-05 00:00: 00 Yes Rock Reynaga Dose Unknown 12-05 00:00: 00 Yes Rock Reynaga Dose Unknown 12-05 00:00: 00 Yes Rock Reynaga Dose Unknown 12-05 00:00: 00 Yes Rock Reynaga prednisone 20 mg tablet 12-05 00:00: 00 No mg benzonatate 100 mg capsule 12-05 00:00: 00 No 12mg Dose Unknown 12-05 00:00: 00 No Dose Unknown 12-05 00:00: 00 No Dose Unknown 12-05 00:00: 00 No Dose Unknown 12-05 00:00: 00 No Scopolamine 1 MG/3DAYS Scopolamine 1 MG/3DAYS 2021-0 14 00:00: 00 No Scopolamin e 1 MG/3DAYS LINZESS 145 mcg capsule 11-16 00:00: 00 Yes 1{capsu le} Take 1 capsule by mouth in the morning. [facility] LINZESS 145 mcg capsule 11-16 00:00: 00 Yes 145ug Take 1 capsule by mouth in the morning. [facility] simvastatin 40 mg tablet -16 00:00: 00 01-01 00:00 :00 No 40mg Take 40 mg by mouth every evening. [facility] Vitamin B12 (Cyanocobal nayak) Vitamin B12 (Cyanocobal nayak) 07-25 00:00: 00 No 1000ug [facility] budesonide- formoteroL 160-4.5 mcg/actuati on inhaler 07-24 14:26: 39 Yes 2{puff} Inhale 2 Puffs in the morning and 2 Puffs in the evening. [facility] clopidogreL (PLAVIX) 75 mg tablet 07-24 14:26: 39 Yes 75mg Take 1 tablet by mouth in the morning. [facility] nystatin 100,000 unit/gram cream 07-24 00:00: 00 Yes [id number] Apply to area(s) 2 (two) times daily. [facility] esomeprazol e 40 mg capsule 07-02 08:18: 50 Yes 40mg Take 1 capsule by mouth in the morning. [facility] nitroglycer in (NITROSTAT) 0.4 mg sublingual tablet 07-02 08:18: [address] 1 tablet under the tongue every 5 (five) minutes as needed for Chest pain. [facility] mometasone (NASONEX) 50 mcg/actuati on nasal spray 07-02 08:18: 50 Yes 1{spray } Use 1 [place] in each nostril. [facility] ergocalcife rol, vitamin D2, (VITAMIN D ORAL) 07-02 08:18: 50 Yes Take by mouth. [facility] oxybutynin XL 5 mg 24 hr tablet 06-28 00:00: 00 09-02 00:00 :00 No [id number] 5mg Take 1 tablet by mouth daily. [facility] PARoxetine (PAXIL) 10 mg tablet 06-28 00:00: 00 01-29 00:00 :00 No [id number] 10mg Take 1 tablet by mouth daily. [facility] estradioL 0.01 % (0.1 mg/gram) vaginal cream 02-08 00:00: 00 Yes [id number] 1g Insert 1 g into vagina weekly. Pea size In the labia/vagi na every night for 6 weeks then 3 times a week [facility] Flagyl 500 mg tablet 12-12 00:00: 00 Yes 1mg Rock Reynaga Flagyl 500 mg tablet 12-12 00:00: 00 No 1mg Diflucan 150 mg tablet 12-07 00:00: 00 Yes 1mg Rock Reynaga Diflucan 150 mg tablet 12-07 00:00: 00 No 1mg tamsulosin 0.4 mg 24 hr capsule 09-15 00:00: 00 Yes [id number] .4mg Take 1 capsule by mouth daily. [facility] ketorolac 10 mg tablet 09-11 00:00: 00 Yes [id number] 10mg Take 1 tablet by mouth every 6 (six) hours as needed for Pain (scale 7-10) (ONLY WHEN IN breakthrou gh PAIN, avoid use if pain tolerable) . [facility] ondansetron 4 mg tablet 09-11 00:00: 00 Yes [id number] 4mg Take 1 tablet by mouth every 8 (eight) hours as needed for Nausea and Vomiting (N/V). [facility] furosemide 40 mg tablet 06-25 00:00: 00 Yes 40mg Take 1 tablet by mouth in the morning. [facility] Kenalog (Triamcinol one) Kenalog (Triamcinol one) 2018-06 00:00: 00 No 40mg [facility] Cipro 500 mg tablet 2018-06 00:00: 00 Yes 1mg Rock F Ronnell Flagyl 500 mg tablet 2018-06 00:00: 00 Yes 1mg Rock Reynaga Diflucan 150 mg tablet 2018-06 00:00: 00 Yes 1mg Rock Reynaga Cipro 500 mg tablet 2018-06 00:00: 00 No 1mg Flagyl 500 mg tablet 2018-06 00:00: 00 No 1mg Diflucan 150 mg tablet 2018-06 00:00: 00 No 1mg Plavix 75 mg tablet 2018-06 00:00: 00 Yes 1mg Rock Reynaga atenolol 100 mg tablet 2018-06 00:00: 00 Yes 1mg Rock Reynaga Plavix 75 mg tablet 2018-06 00:00: 00 No 1mg atenolol 100 mg tablet 2018-06 00:00: 00 No 1mg psyllium-callaway crose (METAMUCIL, SUGAR,) powder 2018-06 00:00: 00 Yes [id number] 1{packe t} Take 1 Packet by mouth 3 (three) times daily. [facility] psyllium-callaway crose (METAMUCIL, SUGAR,) powder 2018-06 00:00: 00 Yes [id number] 1{packe t} Take 1 Packet by mouth 3 (three) times daily. [facility] docusate (COLACE) 100 mg capsule 2018-06 00:00: 00 Yes [id number] 100mg Take 1 capsule by mouth 2 (two) times daily. [facility] LEVOTHYROXI NE 50 mcg tablet 10-27 00:00: 00 Yes [id number] TAKE 1 TABLET BY MOUTH EVERY MORNING. [facility] cyanocobala min (VITAMIN B-12) 1,000 mcg/mL injection 2016-06 005 00:00: 00 Yes 1000ug 1 mL by Intramuscu lar route once every month. [facility] nortriptyli ne 25 mg capsule 02-06 00:00: 00 07-16 00:00 :00 No 25mg Take 1 capsule by mouth at bedtime. [facility] clotrimazol e 1 % topical cream 10-28 00:00: 00 Yes 1% Rock Reynaga terbinafine HCl 250 mg tablet 10-28 00:00: 00 Yes 1mg Rock Reynaga clotrimazol e 1 % topical cream 10-28 00:00: 00 No 1% terbinafine HCl 250 mg tablet 10-28 00:00: 00 No 1mg isosorbide mononitrate 30 mg 24 hr tablet 10-10 00:00: 00 Yes 30mg Take 30 mg by mouth as needed. [facility] HYDROcodone -acetaminop hen 10-325 mg tablet 10-08 00:00: 00 Yes 1{tbl} Take 1 tablet by mouth every 8 (eight) hours as needed. [facility] HYDROcodone -acetaminop hen 5-325 mg tablet 10-08 00:00: 00 Yes 1{tbl} Take 1 tablet by mouth every 8 (eight) hours as needed. Pt takes PRN [facility] VITAMIN D2 50,000 unit capsule 10-07 00:00: 00 Yes [id number] Take 1 capsule by mouth weekly. Every two weeks [facility] Bactrim DS 800 mg-160 mg tablet 09-27 00:00: 00 Yes 1mg Rock Reynaga Bactrim DS 800 mg-160 mg tablet 09-27 00:00: 00 No 1mg atenolol 100 mg tablet 09-24 00:00: 00 Yes 100mg Take 1 tablet by mouth in the morning. [facility] triamcinolo ne acetonide 0.025 % topical cream 09-09 00:00: 00 Yes 1% Rock Reynaga loratadine 10 mg tablet 09-09 00:00: 00 Yes 1mg Rock Reynaga triamcinolo ne acetonide 0.025 % topical cream 09-09 00:00: 00 No 1% loratadine 10 mg tablet 09-09 00:00: 00 No 1mg atenolol 100 mg tablet 08-24 00:00: 00 Yes 1mg Rock Reynaga aspirin 81 mg tablet,laura yed release 08-24 00:00: 00 Yes 1mg Rock Reynaga naproxen 250 mg tablet 08-24 00:00: 00 Yes 1mg [facility] Reynaga spironolact one 25 mg tablet 08-24 00:00: 00 Yes 1mg [facility]aga ondansetron HCl 4 mg tablet 08-24 00:00: 00 Yes 1mg [facility]aga promethazin e 12.5 mg tablet 08-24 00:00: 00 Yes 1mg [facility]aga gabapentin 300 mg capsule 08-24 00:00: 00 Yes 1mg [facility]aga cyanocobala min (vit B-12) 1,000 mcg/mL injection solution 08-24 00:00: 00 Yes 2mcg/mL [facility]aga atenolol 100 mg tablet 08-24 00:00: 00 [...] injection solution 08-24 00:00: 00 No 2mcg/mL aspirin (ASPIRIN LOW DOSE) 81 mg EC tablet 07-22 00:00: 00 Yes 81mg Take 1 tablet by mouth daily. [facility] atorvastati n 40 mg tablet 07-22 00:00: 00 01-16 00:00 :00 No 40mg Take 1 tablet by mouth at bedtime. [facility] proMETHazin e 12.5 mg tablet 07-22 00:00: 00 01-01 00:00 :00 No 12.5mg Take 1 tablet by mouth every 6 (six) hours as needed for Nausea and Vomiting (N/V). [facility] trazodone 50 mg tablet 07-03 00:00: 00 Yes 1mg [facility]aga trazodone 50 mg tablet 07-03 00:00: 00 No 1mg Transderm-S endoscopy rn 1.5 mg 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 (1 mg over 3 days) 2015-06 00:00: 00 Yes 1mg/0.3 mL [facility]aga meclizine 25 mg tablet 2015-06 00:00: 00 Yes 1mg [facility] Reynaga Tessalon Perles 100 mg capsule 2015-06 00:00: 00 Yes 12mg [facility] Reynaga Transderm-S endoscopy rn 1.5 mg 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 (1 mg over 3 days) 2015-06 00:00: 00 No 1mg/0.3 mL meclizine 25 mg tablet 2015-06 00:00: 00 No 1mg Tessalon Perles 100 mg capsule 2015-06 00:00: 00 No 12mg clotrimazol e 1 % topical cream 2015-06 00:00: 00 Yes 1% Rock Reynaga clotrimazol e 1 % topical cream 2015-06 00:00: 00 No 1% Pataday 0.2 % eye drops 2015-06 00:00: 00 Yes 1% Rock Reynaga Pataday 0.2 % eye drops 2015-06 00:00: 00 No 1% Transderm-S endoscopy rn 1.5 mg 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 (1 mg over 3 days) 02-15 00:00: 00 Yes 1mg/0.3 mL Rock Reynaga Transderm-S endoscopy rn 1.5 mg 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 (1 mg over 3 days) 02-15 00:00: 00 No 1mg/0.3 mL clarithromy keshia 500 mg tablet 12-19 00:00: 00 Yes 1mg Rock Reynaga clarithromy keshia 500 mg tablet 12-19 00:00: 00 No 1mg naproxen 375 mg tablet 12-13 00:00: 00 Yes 1mg Rock Reynaga Tessalon Perles 100 mg capsule 12-13 00:00: 00 Yes 1mg Rock Reynaga albuterol sulfate 2.5 mg/3 mL (0.083 %) solution for nebulizatio n 12-13 00:00: 00 Yes 3/3 mL (0.083 %) [facility]aga naproxen 375 mg tablet 12-13 00:00: 00 No 1mg Tessalon Perles 100 mg capsule 12-13 00:00: 00 No 1mg albuterol sulfate 2.5 mg/3 mL (0.083 %) solution for nebulizatio n 12-13 00:00: 00 No 3/3 mL (0.083 %) azithromyci n 250 mg tablet 12-12 00:00: 00 Yes 1mg Rock Reynaga azithromyci n 250 mg tablet 12-12 00:00: 00 No 1mg cyanocobala min (vit B-12) 1,000 mcg/mL injection solution 12-06 00:00: 00 Yes 2mcg/mL [facility]aga cyanocobala min (vit B-12) 1,000 mcg/mL injection solution 12-06 00:00: 00 No 2mcg/mL Nasonex 50 mcg/actuati on [place] 11-18 00:00: 00 Yes 2mcg/ac tuation Rock Reynaga Nexium 40 mg capsule,del ayed release 11-18 00:00: 00 Yes 1mg Rock Reynaga Nasonex 50 mcg/actuati on [place] 11-18 00:00: 00 No 2mcg/ac tuation Nexium 40 mg capsule,del ayed release 11-18 00:00: 00 No 1mg atenolol 100 mg tablet 10-14 00:00: 00 Yes 1mg [facility] Reynaga Amitiza 24 mcg capsule 10-14 00:00: 00 Yes 1mcg [facility]aga atenolol 100 mg tablet 10-14 00:00: 00 No 1mg Amitiza 24 mcg capsule 10-14 00:00: 00 No 1mcg Transderm-S endoscopy rn 1.5 mg 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 (1 mg over 3 days) 08-31 00:00: 00 Yes 1mg/0.3 mL [facility] Reynaga Transderm-S endoscopy rn 1.5 mg 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 (1 mg over 3 days) 08-31 00:00: 00 No 1mg/0.3 mL promethazin e 25 mg tablet 07-04 00:00: 00 Yes 5mg Rock Reynaga promethazin e 25 mg tablet 07-04 00:00: 00 No 5mg furosemide 40 mg tablet 06-24 00:00: 00 Yes 1mg Rock Reynaga furosemide 40 mg tablet 06-24 00:00: 00 No 1mg meclizine 25 mg tablet 2014-06 00:00: 00 Yes 1mg Rock Reynaga meclizine 25 mg tablet 2014-06 00:00: 00 No 1mg CREON 36,000-114, 000- 180,000 unit CpDR 10-04 00:00: 00 Yes 2{tbl} Take 2 Tabs by mouth 2 (two) times daily. [facility] PROAIR HFA 90 mcg/actuati on inhaler 09-03 00:00: 00 Yes 2{puff} Inhale 2 Puffs every 6 (six) hours as needed for Wheezing or Shortness of Breath. [facility] hydrocodone 10 mg-acetamin ophen 325 mg tablet 06-23 00:00: 00 Yes 1mg [facility] Reynaga hydrocodone 10 mg-acetamin ophen 325 mg tablet 06-23 00:00: 00 No 1mg lorazepam 0.5 mg tablet 06-23 00:00: 00 Yes 1mg [facility] Reynaga lorazepam 0.5 mg tablet 06-23 00:00: 00 No 1mg Clopidogrel Bisulfate 75 MG Clopidogrel Bisulfate 75 [...] 1{table t} QD Spironolac tone 25 MG Famotidine 40 MG Famotidine 40 MG No Famotidine 40 MG Nystatin 700548 UNIT/ML Nystatin 620483 UNIT/ML No 4{ml} QID Nystatin 999847 UNIT/ML NexIUM 40 MG NexIUM 40 MG No NexIUM 40 MG Immunizations Ordered Immunization Name Filled Immunization Name Date Status Comments Source Prevnar 20 (PCV20) Prevnar 20 (PCV20) 2022-08-08 16:18:00 Completed [facility] FLUZONE HIGH DOSE OVER 65 FLUZONE HIGH DOSE OVER 65 2022-04-29 14:36:00 Completed [facility] FLUZONE HIGH DOSE OVER 65 FLUZONE HIGH DOSE OVER 65 2022-04-29 14:36:00 Completed [facility] FLUZONE HIGH DOSE OVER 65 FLUZONE HIGH DOSE OVER 65 2022-04-29 14:36:00 Completed [facility] FLUZONE HIGH DOSE OVER 65 FLUZONE HIGH DOSE OVER 65 2022-04-29 14:36:00 Completed [facility] FLUZONE HIGH DOSE OVER 65 FLUZONE HIGH DOSE OVER 65 2022-04-29 14:36:00 Completed [facility] FLUZONE HIGH DOSE OVER 65 FLUZONE HIGH DOSE OVER 65 2022-04-29 14:36:00 Completed [facility] FLUZONE HIGH DOSE OVER 65 FLUZONE HIGH DOSE OVER 65 2022-04-29 14:36:00 Completed [facility] FLUZONE HIGH DOSE OVER 65 FLUZONE HIGH DOSE OVER 65 2022-04-29 14:36:00 Completed [facility] SARS-COV-2 COVID-19 PFIZER VACCINE 2021-06-08 00:00:00 Completed [facility] SARS-COV-2 COVID-19 PFIZER VACCINE 2021-06-08 00:00:00 Completed [facility] SARS-COV-2 COVID-19 PFIZER VACCINE 2021-06-08 00:00:00 Completed [facility] SARS-COV-2 COVID-19 PFIZER VACCINE 2021-06-08 00:00:00 Completed [facility] SARS-COV-2 COVID-19 PFIZER VACCINE 2021-06-08 00:00:00 Completed [facility] SARS-COV-2 COVID-19 PFIZER VACCINE 2021-06-08 00:00:00 Completed [facility] SARS-COV-2 COVID-19 PFIZER VACCINE 2021-06-08 00:00:00 Completed [facility] Vitamin B12 (Cyanocobalamin) Vitamin B12 (Cyanocobalamin) 2021-03-23 09:40:00 Completed [facility] Vitamin B12 (Cyanocobalamin) Vitamin B12 (Cyanocobalamin) 2021-03-23 09:40:00 Completed [facility] Vitamin B12 (Cyanocobalamin) Vitamin B12 (Cyanocobalamin) 2021-02-15 08:57:00 Completed [facility] Vitamin B12 (Cyanocobalamin) Vitamin B12 (Cyanocobalamin) 2021-02-15 08:57:00 Completed [facility] Vitamin B12 (Cyanocobalamin) Vitamin B12 (Cyanocobalamin) 2021-02-15 08:57:00 Completed [facility] Vitamin B12 (Cyanocobalamin) Vitamin B12 (Cyanocobalamin) 2021-02-15 08:57:00 Completed [facility] Vitamin B12 (Cyanocobalamin) Vitamin B12 (Cyanocobalamin) 2021-02-15 08:57:00 Completed [facility] Vitamin B12 (Cyanocobalamin) Vitamin B12 (Cyanocobalamin) 2020-12-21 14:20:00 Completed [facility] Vitamin B12 (Cyanocobalamin) Vitamin B12 (Cyanocobalamin) 2020-12-21 14:20:00 Completed [facility] Vitamin B12 (Cyanocobalamin) Vitamin B12 (Cyanocobalamin) 2020-12-21 14:20:00 Completed [facility] Vitamin B12 (Cyanocobalamin) Vitamin B12 (Cyanocobalamin) 2020-12-21 14:20:00 Completed [facility] Vitamin B12 (Cyanocobalamin) Vitamin B12 (Cyanocobalamin) 2020-12-21 14:20:00 Completed [facility] Vitamin B12 (Cyanocobalamin) Vitamin B12 (Cyanocobalamin) 2020-12-21 14:20:00 Completed [facility] Vitamin B12 (Cyanocobalamin) Vitamin B12 (Cyanocobalamin) 2020-12-21 14:20:00 Completed [facility] Vitamin B12 (Cyanocobalamin) Vitamin B12 (Cyanocobalamin) 2020-12-21 14:20:00 Completed [facility] Vitamin B12 (Cyanocobalamin) Vitamin B12 (Cyanocobalamin) 2020-12-21 14:20:00 Completed [facility] Vitamin B12 (Cyanocobalamin) Vitamin B12 (Cyanocobalamin) 2020-12-21 14:20:00 Completed [facility] Vitamin B12 (Cyanocobalamin) Vitamin B12 (Cyanocobalamin) 2020-12-21 14:20:00 Completed [facility] Vitamin B12 (Cyanocobalamin) Vitamin B12 (Cyanocobalamin) 2020-12-21 14:20:00 Completed [facility] Vitamin B12 (Cyanocobalamin) Vitamin B12 (Cyanocobalamin) 2020-12-21 14:20:00 Completed [facility] Vitamin B12 (Cyanocobalamin) Vitamin B12 (Cyanocobalamin) 2020-12-21 14:20:00 Completed [facility] Vitamin B12 (Cyanocobalamin) Vitamin B12 (Cyanocobalamin) 2020-12-21 14:20:00 Completed [facility] Vitamin B12 (Cyanocobalamin) Vitamin B12 (Cyanocobalamin) 2020-12-05 10:29:00 Completed [facility] Vitamin B12 (Cyanocobalamin) Vitamin B12 (Cyanocobalamin) 2020-12-05 10:29:00 Completed [facility] Vitamin B12 (Cyanocobalamin) Vitamin B12 (Cyanocobalamin) 2020-12-05 10:29:00 Completed [facility] Vitamin B12 (Cyanocobalamin) Vitamin B12 (Cyanocobalamin) 2020-12-05 10:29:00 Completed [facility] Vitamin B12 (Cyanocobalamin) Vitamin B12 (Cyanocobalamin) 2020-12-05 10:29:00 Completed [facility] Vitamin B12 (Cyanocobalamin) Vitamin B12 (Cyanocobalamin) 2020-12-05 10:29:00 Completed [facility] Vitamin B12 (Cyanocobalamin) Vitamin B12 (Cyanocobalamin) 2020-12-05 10:29:00 Completed [facility] Vitamin B12 (Cyanocobalamin) Vitamin B12 (Cyanocobalamin) 2020-12-05 10:29:00 Completed [facility] Vitamin B12 (Cyanocobalamin) Vitamin B12 (Cyanocobalamin) 2020-12-05 10:29:00 Completed [facility] Vitamin B12 (Cyanocobalamin) Vitamin B12 (Cyanocobalamin) 2020-12-05 10:29:00 Completed [facility] Vitamin B12 (Cyanocobalamin) Vitamin B12 (Cyanocobalamin) 2020-12-05 10:29:00 Completed [facility] Vitamin B12 (Cyanocobalamin) Vitamin B12 (Cyanocobalamin) 2020-12-05 10:29:00 Completed [facility] Vitamin B12 (Cyanocobalamin) Vitamin B12 (Cyanocobalamin) 2020-12-05 10:29:00 Completed [facility] Vitamin B12 (Cyanocobalamin) Vitamin B12 (Cyanocobalamin) 2020-12-05 10:29:00 Completed [facility] Vitamin B12 (Cyanocobalamin) Vitamin B12 (Cyanocobalamin) 2020-12-05 10:29:00 Completed [facility] Vitamin B12 (Cyanocobalamin) Vitamin B12 (Cyanocobalamin) 2020-12-05 10:29:00 Completed [facility] Vitamin B12 (Cyanocobalamin) Vitamin B12 (Cyanocobalamin) 2020-10-26 16:27:00 Completed [facility] Vitamin B12 (Cyanocobalamin) Vitamin B12 (Cyanocobalamin) 2020-10-26 16:27:00 Completed [facility] Vitamin B12 (Cyanocobalamin) Vitamin B12 (Cyanocobalamin) 2020-10-26 16:27:00 Completed [facility] Vitamin B12 (Cyanocobalamin) Vitamin B12 (Cyanocobalamin) 2020-10-26 16:27:00 Completed [facility] Vitamin B12 (Cyanocobalamin) Vitamin B12 (Cyanocobalamin) 2020-10-26 16:27:00 Completed [facility] Vitamin B12 (Cyanocobalamin) Vitamin B12 (Cyanocobalamin) 2020-10-26 16:27:00 Completed [facility] Vitamin B12 (Cyanocobalamin) Vitamin B12 (Cyanocobalamin) 2020-10-26 16:27:00 Completed [facility] Vitamin B12 (Cyanocobalamin) Vitamin B12 (Cyanocobalamin) 2020-10-26 16:27:00 Completed [facility] Vitamin B12 (Cyanocobalamin) Vitamin B12 (Cyanocobalamin) 2020-10-26 16:27:00 Completed [facility] Vitamin B12 (Cyanocobalamin) Vitamin B12 (Cyanocobalamin) 2020-10-26 16:27:00 Completed [facility] Vitamin B12 (Cyanocobalamin) Vitamin B12 (Cyanocobalamin) 2020-10-26 16:27:00 Completed [facility] Vitamin B12 (Cyanocobalamin) Vitamin B12 (Cyanocobalamin) 2020-10-26 16:27:00 Completed [facility] Vitamin B12 (Cyanocobalamin) Vitamin B12 (Cyanocobalamin) 2020-10-26 16:27:00 Completed [facility] Vitamin B12 (Cyanocobalamin) Vitamin B12 (Cyanocobalamin) 2020-10-26 16:27:00 Completed [facility] Vitamin B12 (Cyanocobalamin) Vitamin B12 (Cyanocobalamin) 2020-10-26 16:27:00 Completed [facility] Vitamin B12 (Cyanocobalamin) Vitamin B12 (Cyanocobalamin) 2020-10-26 16:27:00 Completed [facility] Vitamin B12 (Cyanocobalamin) Vitamin B12 (Cyanocobalamin) 2020-10-26 16:27:00 Completed [facility] Vitamin B12 (Cyanocobalamin) Vitamin B12 (Cyanocobalamin) 2020-10-26 16:27:00 Completed [facility] SARS-COV-2 COVID-19 MODERNA VACCINE 2020-09-17 00:00:00 Completed [facility] SARS-COV-2 COVID-19 MODERNA VACCINE 2020-09-17 00:00:00 Completed [facility] SARS-COV-2 COVID-19 MODERNA VACCINE 2020-09-17 00:00:00 Completed [facility] SARS-COV-2 COVID-19 MODERNA VACCINE 2020-09-17 00:00:00 Completed [facility] SARS-COV-2 COVID-19 MODERNA VACCINE 2020-09-17 00:00:00 Completed [facility] SARS-COV-2 COVID-19 MODERNA VACCINE 2020-09-17 00:00:00 Completed [facility] SARS-COV-2 COVID-19 MODERNA VACCINE 2020-09-17 00:00:00 Completed [facility] SARS-COV-2 COVID-19 MODERNA VACCINE 2020-09-17 00:00:00 Completed [facility] SARS-COV-2 COVID-19 MODERNA VACCINE 2020-09-17 00:00:00 Completed [facility] SARS-COV-2 COVID-19 MODERNA VACCINE 2020-09-17 00:00:00 Completed [facility] SARS-COV-2 COVID-19 MODERNA VACCINE 2020-09-17 00:00:00 Completed [facility] SARS-COV-2 COVID-19 MODERNA VACCINE 2020-09-17 00:00:00 Completed [facility] SARS-COV-2 COVID-19 MODERNA VACCINE 2020-09-17 00:00:00 Completed [facility] SARS-COV-2 COVID-19 MODERNA VACCINE 2020-09-17 00:00:00 Completed [facility] SARS-COV-2 COVID-19 MODERNA VACCINE 2020-09-17 00:00:00 Completed [facility] SARS-COV-2 COVID-19 MODERNA VACCINE 2020-09-17 00:00:00 Completed [facility] SARS-COV-2 COVID-19 MODERNA VACCINE 2020-09-17 00:00:00 Completed [facility] SARS-COV-2 COVID-19 MODERNA VACCINE 2020-09-17 00:00:00 Completed [facility] SARS-COV-2 COVID-19 MODERNA VACCINE 2020-09-17 00:00:00 Completed [facility] SARS-COV-2 COVID-19 MODERNA 12+ YRS VACCINE 2020-09-17 00:00:00 Completed [facility] SARS-COV-2 COVID-19 MODERNA 12+ YRS VACCINE 2020-09-17 00:00:00 Completed [facility] SARS-COV-2 COVID-19 MODERNA 12+ YRS VACCINE 2020-09-17 00:00:00 Completed [facility] SARS-COV-2 COVID-19 MODERNA 12+ YRS VACCINE 2020-09-17 00:00:00 Completed [facility] SARS-COV-2 COVID-19 MODERNA 12+ YRS VACCINE 2020-09-17 00:00:00 Completed [facility] SARS-COV-2 COVID-19 MODERNA 12+ YRS VACCINE 2020-09-17 00:00:00 Completed [facility] SARS-COV-2 COVID-19 MODERNA 12+ YRS VACCINE 2020-09-17 00:00:00 Completed [facility] SARS-COV-2 COVID-19 MODERNA 12+ YRS VACCINE 2020-09-17 00:00:00 Completed [facility] SARS-COV-2 COVID-19 MODERNA 12+ YRS VACCINE 2020-09-17 00:00:00 Completed [facility] SARS-COV-2 COVID-19 MODERNA 12+ YRS VACCINE 2020-09-17 00:00:00 Completed [facility] SARS-COV-2 COVID-19 MODERNA 12+ YRS VACCINE 2020-09-17 00:00:00 Completed [facility] SARS-COV-2 COVID-19 MODERNA 12+ YRS VACCINE 2020-09-17 00:00:00 Completed [facility] SARS-COV-2 COVID-19 MODERNA 12+ YRS VACCINE 2020-09-17 00:00:00 Completed [facility] SARS-COV-2 COVID-19 MODERNA 12+ YRS VACCINE 2020-09-17 00:00:00 Completed [facility] SARS-COV-2 COVID-19 MODERNA 12+ YRS VACCINE 2020-09-17 00:00:00 Completed [facility] SARS-COV-2 COVID-19 MODERNA 12+ YRS VACCINE 2020-09-17 00:00:00 Completed [facility] SARS-COV-2 COVID-19 MODERNA 12+ YRS VACCINE 2020-09-17 00:00:00 Completed [facility] SARS-COV-2 COVID-19 MODERNA 12+ YRS VACCINE 2020-09-17 00:00:00 Completed [facility] SARS-COV-2 COVID-19 MODERNA 12+ YRS VACCINE 2020-09-17 00:00:00 Completed [facility] SARS-COV-2 COVID-19 MODERNA 12+ YRS VACCINE 2020-09-17 00:00:00 Completed [facility] SARS-COV-2 COVID-19 MODERNA 12+ YRS VACCINE 2020-09-17 00:00:00 Completed [facility] SARS-COV-2 COVID-19 MODERNA 12+ YRS VACCINE 2020-09-17 00:00:00 Completed [facility] Vitamin B12 (Cyanocobalamin) Vitamin B12 (Cyanocobalamin) 2020-09-12 10:56:00 Completed [facility] Vitamin B12 (Cyanocobalamin) Vitamin B12 (Cyanocobalamin) 2020-09-12 10:56:00 Completed [facility] Vitamin B12 (Cyanocobalamin) Vitamin B12 (Cyanocobalamin) 2020-09-12 10:56:00 Completed [facility] Vitamin B12 (Cyanocobalamin) Vitamin B12 (Cyanocobalamin) 2020-09-12 10:56:00 Completed [facility] Vitamin B12 (Cyanocobalamin) Vitamin B12 (Cyanocobalamin) 2020-09-12 10:56:00 Completed [facility] Vitamin B12 (Cyanocobalamin) Vitamin B12 (Cyanocobalamin) 2020-09-12 10:56:00 Completed [facility] Vitamin B12 (Cyanocobalamin) Vitamin B12 (Cyanocobalamin) 2020-09-12 10:56:00 Completed [facility] Vitamin B12 (Cyanocobalamin) Vitamin B12 (Cyanocobalamin) 2020-09-12 10:56:00 Completed [facility] Vitamin B12 (Cyanocobalamin) Vitamin B12 (Cyanocobalamin) 2020-09-12 10:56:00 Completed [facility] Vitamin B12 (Cyanocobalamin) Vitamin B12 (Cyanocobalamin) 2020-09-12 10:56:00 Completed [facility] Vitamin B12 (Cyanocobalamin) Vitamin B12 (Cyanocobalamin) 2020-09-12 10:56:00 Completed [facility] Vitamin B12 (Cyanocobalamin) Vitamin B12 (Cyanocobalamin) 2020-09-12 10:56:00 Completed [facility] Vitamin B12 (Cyanocobalamin) Vitamin B12 (Cyanocobalamin) 2020-09-12 10:56:00 Completed [facility] Vitamin B12 (Cyanocobalamin) Vitamin B12 (Cyanocobalamin) 2020-09-12 10:56:00 Completed [facility] Vitamin B12 (Cyanocobalamin) Vitamin B12 (Cyanocobalamin) 2020-09-12 10:56:00 Completed [facility] Vitamin B12 (Cyanocobalamin) Vitamin B12 (Cyanocobalamin) 2020-09-12 10:56:00 Completed [facility] Vitamin B12 (Cyanocobalamin) Vitamin B12 (Cyanocobalamin) 2020-09-12 10:56:00 Completed [facility] Vitamin B12 (Cyanocobalamin) Vitamin B12 (Cyanocobalamin) 2020-09-12 10:56:00 Completed [facility] Vitamin B12 (Cyanocobalamin) Vitamin B12 (Cyanocobalamin) 2020-09-12 10:56:00 Completed [facility] Vitamin B12 (Cyanocobalamin) Vitamin B12 (Cyanocobalamin) 2020-09-12 10:56:00 Completed [facility] Vitamin B12 (Cyanocobalamin) Vitamin B12 (Cyanocobalamin) 2020-09-12 10:56:00 Completed [facility] Vitamin B12 (Cyanocobalamin) Vitamin B12 (Cyanocobalamin) 2020-09-12 10:56:00 Completed [facility] SARS-COV-2 COVID-19 MODERNA VACCINE 2020-08-20 00:00:00 Completed [facility] SARS-COV-2 COVID-19 MODERNA VACCINE 2020-08-20 00:00:00 Completed [facility] SARS-COV-2 COVID-19 MODERNA VACCINE 2020-08-20 00:00:00 Completed [facility] SARS-COV-2 COVID-19 MODERNA VACCINE 2020-08-20 00:00:00 Completed [facility] SARS-COV-2 COVID-19 MODERNA VACCINE 2020-08-20 00:00:00 Completed [facility] SARS-COV-2 COVID-19 MODERNA VACCINE 2020-08-20 00:00:00 Completed [facility] SARS-COV-2 COVID-19 MODERNA VACCINE 2020-08-20 00:00:00 Completed [facility] SARS-COV-2 COVID-19 MODERNA VACCINE 2020-08-20 00:00:00 Completed [facility] SARS-COV-2 COVID-19 MODERNA VACCINE 2020-08-20 00:00:00 Completed [facility] SARS-COV-2 COVID-19 MODERNA VACCINE 2020-08-20 00:00:00 Completed [facility] SARS-COV-2 COVID-19 MODERNA VACCINE 2020-08-20 00:00:00 Completed [facility] SARS-COV-2 COVID-19 MODERNA VACCINE 2020-08-20 00:00:00 Completed [facility] SARS-COV-2 COVID-19 MODERNA VACCINE 2020-08-20 00:00:00 Completed [facility] SARS-COV-2 COVID-19 MODERNA VACCINE 2020-08-20 00:00:00 Completed [facility] SARS-COV-2 COVID-19 MODERNA VACCINE 2020-08-20 00:00:00 Completed [facility] SARS-COV-2 COVID-19 MODERNA VACCINE 2020-08-20 00:00:00 Completed [facility] SARS-COV-2 COVID-19 MODERNA VACCINE 2020-08-20 00:00:00 Completed [facility] SARS-COV-2 COVID-19 MODERNA VACCINE 2020-08-20 00:00:00 Completed [facility] SARS-COV-2 COVID-19 MODERNA VACCINE 2020-08-20 00:00:00 Completed [facility] SARS-COV-2 COVID-19 MODERNA 12+ YRS VACCINE 2020-08-20 00:00:00 Completed [facility] SARS-COV-2 COVID-19 MODERNA 12+ YRS VACCINE 2020-08-20 00:00:00 Completed [facility] SARS-COV-2 COVID-19 MODERNA 12+ YRS VACCINE 2020-08-20 00:00:00 Completed [facility] SARS-COV-2 COVID-19 MODERNA 12+ YRS VACCINE 2020-08-20 00:00:00 Completed [facility] SARS-COV-2 COVID-19 MODERNA 12+ YRS VACCINE 2020-08-20 00:00:00 Completed [facility] SARS-COV-2 COVID-19 MODERNA 12+ YRS VACCINE 2020-08-20 00:00:00 Completed [facility] SARS-COV-2 COVID-19 MODERNA 12+ YRS VACCINE 2020-08-20 00:00:00 Completed [facility] SARS-COV-2 COVID-19 MODERNA 12+ YRS VACCINE 2020-08-20 00:00:00 Completed [facility] SARS-COV-2 COVID-19 MODERNA 12+ YRS VACCINE 2020-08-20 00:00:00 Completed [facility] SARS-COV-2 COVID-19 MODERNA 12+ YRS VACCINE 2020-08-20 00:00:00 Completed [facility] SARS-COV-2 COVID-19 MODERNA 12+ YRS VACCINE 2020-08-20 00:00:00 Completed [facility] SARS-COV-2 COVID-19 MODERNA 12+ YRS VACCINE 2020-08-20 00:00:00 Completed [facility] SARS-COV-2 COVID-19 MODERNA 12+ YRS VACCINE 2020-08-20 00:00:00 Completed [facility] SARS-COV-2 COVID-19 MODERNA 12+ YRS VACCINE 2020-08-20 00:00:00 [facility]pleted [facility] [facility] SARS-COV-2 COVID-19 MODERNA 12+ YRS VACCINE 2020-08-20 00:00:00 Completed [facility] SARS-COV-2 COVID-19 MODERNA 12+ YRS VACCINE 2020-08-20 00:00:00 Completed [facility] SARS-COV-2 COVID-19 MODERNA 12+ YRS VACCINE 2020-08-20 00:00:00 Completed [facility] SARS-COV-2 COVID-19 MODERNA 12+ YRS VACCINE 2020-08-20 00:00:00 Completed [facility] SARS-COV-2 COVID-19 MODERNA 12+ YRS VACCINE 2020-08-20 00:00:00 Completed [facility] SARS-COV-2 COVID-19 MODERNA 12+ YRS VACCINE 2020-08-20 00:00:00 Completed [facility] SARS-COV-2 COVID-19 MODERNA 12+ YRS VACCINE 2020-08-20 00:00:00 Completed [facility] SARS-COV-2 COVID-19 MODERNA 12+ YRS VACCINE 2020-08-20 00:00:00 Completed [facility] Vitamin B12 (Cyanocobalamin) Vitamin B12 (Cyanocobalamin) 2020-08-15 11:43:00 Completed [facility] Vitamin B12 (Cyanocobalamin) Vitamin B12 (Cyanocobalamin) 2020-08-15 11:43:00 Completed [facility] Vitamin B12 (Cyanocobalamin) Vitamin B12 (Cyanocobalamin) 2020-08-15 11:43:00 Completed [facility] Vitamin B12 (Cyanocobalamin) Vitamin B12 (Cyanocobalamin) 2020-08-15 11:43:00 Completed [facility] Vitamin B12 (Cyanocobalamin) Vitamin B12 (Cyanocobalamin) 2020-08-15 11:43:00 Completed [facility] Vitamin B12 (Cyanocobalamin) Vitamin B12 (Cyanocobalamin) 2020-08-15 11:43:00 Completed [facility] Vitamin B12 (Cyanocobalamin) Vitamin B12 (Cyanocobalamin) 2020-08-15 11:43:00 Completed [facility] Vitamin B12 (Cyanocobalamin) Vitamin B12 (Cyanocobalamin) 2020-08-15 11:43:00 Completed [facility] Vitamin B12 (Cyanocobalamin) Vitamin B12 (Cyanocobalamin) 2020-08-15 11:43:00 Completed [facility] Vitamin B12 (Cyanocobalamin) Vitamin B12 (Cyanocobalamin) 2020-08-15 11:43:00 Completed [facility] Vitamin B12 (Cyanocobalamin) Vitamin B12 (Cyanocobalamin) 2020-08-15 11:43:00 Completed [facility] Vitamin B12 (Cyanocobalamin) Vitamin B12 (Cyanocobalamin) 2020-08-15 11:43:00 Completed [facility] Vitamin B12 (Cyanocobalamin) Vitamin B12 (Cyanocobalamin) 2020-08-15 11:43:00 Completed [facility] Vitamin B12 (Cyanocobalamin) Vitamin B12 (Cyanocobalamin) 2020-08-15 11:43:00 Completed [facility] Vitamin B12 (Cyanocobalamin) Vitamin B12 (Cyanocobalamin) 2020-08-15 11:43:00 Completed [facility] Vitamin B12 (Cyanocobalamin) Vitamin B12 (Cyanocobalamin) 2020-08-15 11:43:00 Completed [facility] Vitamin B12 (Cyanocobalamin) Vitamin B12 (Cyanocobalamin) 2020-08-15 11:43:00 Completed [facility] Vitamin B12 (Cyanocobalamin) Vitamin B12 (Cyanocobalamin) 2020-08-15 11:43:00 Completed [facility] Vitamin B12 (Cyanocobalamin) Vitamin B12 (Cyanocobalamin) 2020-08-15 11:43:00 Completed [facility] Vitamin B12 (Cyanocobalamin) Vitamin B12 (Cyanocobalamin) 2020-08-15 11:43:00 Completed [facility] Vitamin B12 (Cyanocobalamin) Vitamin B12 (Cyanocobalamin) 2020-08-15 11:43:00 Completed [facility] Vitamin B12 (Cyanocobalamin) Vitamin B12 (Cyanocobalamin) 2020-08-15 11:43:00 Completed [facility] Vitamin B12 (Cyanocobalamin) Vitamin B12 (Cyanocobalamin) 2020-07-31 15:32:00 Completed [facility] Vitamin B12 (Cyanocobalamin) Vitamin B12 (Cyanocobalamin) 2020-07-31 15:32:00 Completed [facility] Vitamin B12 (Cyanocobalamin) Vitamin B12 (Cyanocobalamin) 2020-07-31 15:32:00 Completed [facility] Vitamin B12 (Cyanocobalamin) Vitamin B12 (Cyanocobalamin) 2020-07-31 15:32:00 Completed [facility] Vitamin B12 (Cyanocobalamin) Vitamin B12 (Cyanocobalamin) 2020-07-31 15:32:00 Completed [facility] Vitamin B12 (Cyanocobalamin) Vitamin B12 (Cyanocobalamin) 2020-07-31 15:32:00 Completed [facility] Vitamin B12 (Cyanocobalamin) Vitamin B12 (Cyanocobalamin) 2020-07-31 15:32:00 Completed [facility] Vitamin B12 (Cyanocobalamin) Vitamin B12 (Cyanocobalamin) 2020-07-31 15:32:00 Completed [facility] Vitamin B12 (Cyanocobalamin) Vitamin B12 (Cyanocobalamin) 2020-07-31 15:32:00 Completed [facility] Vitamin B12 (Cyanocobalamin) Vitamin B12 (Cyanocobalamin) 2020-07-31 15:32:00 Completed [facility] Vitamin B12 (Cyanocobalamin) Vitamin B12 (Cyanocobalamin) 2020-07-31 15:32:00 Completed [facility] Vitamin B12 (Cyanocobalamin) Vitamin B12 (Cyanocobalamin) 2020-07-31 15:32:00 Completed [facility] Vitamin B12 (Cyanocobalamin) Vitamin B12 (Cyanocobalamin) 2020-07-31 15:32:00 Completed [facility] Vitamin B12 (Cyanocobalamin) Vitamin B12 (Cyanocobalamin) 2020-07-31 15:32:00 Completed [facility] Vitamin B12 (Cyanocobalamin) Vitamin B12 (Cyanocobalamin) 2020-07-31 15:32:00 Completed [facility] Vitamin B12 (Cyanocobalamin) Vitamin B12 (Cyanocobalamin) 2020-07-31 15:32:00 Completed [facility] Vitamin B12 (Cyanocobalamin) Vitamin B12 (Cyanocobalamin) 2020-07-31 15:32:00 Completed [facility] Vitamin B12 (Cyanocobalamin) Vitamin B12 (Cyanocobalamin) 2020-07-31 15:32:00 Completed [facility] Vitamin B12 (Cyanocobalamin) Vitamin B12 (Cyanocobalamin) 2020-07-31 15:32:00 Completed [facility] Vitamin B12 (Cyanocobalamin) Vitamin B12 (Cyanocobalamin) 2020-07-31 15:32:00 Completed [facility] Vitamin B12 (Cyanocobalamin) Vitamin B12 (Cyanocobalamin) 2020-07-31 15:32:00 Completed [facility] Vitamin B12 (Cyanocobalamin) Vitamin B12 (Cyanocobalamin) 2020-07-31 15:32:00 Completed [facility] Vitamin B12 (Cyanocobalamin) Vitamin B12 (Cyanocobalamin) 2020-05-16 15:06:00 Completed [facility] Vitamin B12 (Cyanocobalamin) Vitamin B12 (Cyanocobalamin) 2020-05-16 15:06:00 Completed [facility] Vitamin B12 (Cyanocobalamin) Vitamin B12 (Cyanocobalamin) 2020-05-16 15:06:00 Completed [facility] Vitamin B12 (Cyanocobalamin) Vitamin B12 (Cyanocobalamin) 2020-05-16 15:06:00 Completed [facility] Vitamin B12 (Cyanocobalamin) Vitamin B12 (Cyanocobalamin) 2020-05-16 15:06:00 Completed [facility] Vitamin B12 (Cyanocobalamin) Vitamin B12 (Cyanocobalamin) 2020-05-16 15:06:00 Completed [facility] Vitamin B12 (Cyanocobalamin) Vitamin B12 (Cyanocobalamin) 2020-05-16 15:06:00 Completed [facility] Vitamin B12 (Cyanocobalamin) Vitamin B12 (Cyanocobalamin) 2020-05-16 15:06:00 Completed [facility] Vitamin B12 (Cyanocobalamin) Vitamin B12 (Cyanocobalamin) 2020-05-16 15:06:00 Completed [facility] Vitamin B12 (Cyanocobalamin) Vitamin B12 (Cyanocobalamin) 2020-05-16 15:06:00 Completed [facility] Vitamin B12 (Cyanocobalamin) Vitamin B12 (Cyanocobalamin) 2020-05-16 15:06:00 Completed [facility] Vitamin B12 (Cyanocobalamin) Vitamin B12 (Cyanocobalamin) 2020-05-16 15:06:00 Completed [facility] Vitamin B12 (Cyanocobalamin) Vitamin B12 (Cyanocobalamin) 2020-05-16 15:06:00 Completed [facility] Vitamin B12 (Cyanocobalamin) Vitamin B12 (Cyanocobalamin) 2020-05-16 15:06:00 Completed [facility] Vitamin B12 (Cyanocobalamin) Vitamin B12 (Cyanocobalamin) 2020-05-16 15:06:00 Completed [facility] Vitamin B12 (Cyanocobalamin) Vitamin B12 (Cyanocobalamin) 2020-05-16 15:06:00 Completed [facility] Vitamin B12 (Cyanocobalamin) Vitamin B12 (Cyanocobalamin) 2020-05-16 15:06:00 Completed [facility] Vitamin B12 (Cyanocobalamin) Vitamin B12 (Cyanocobalamin) 2020-05-16 15:06:00 Completed [facility] Vitamin B12 (Cyanocobalamin) Vitamin B12 (Cyanocobalamin) 2020-05-16 15:06:00 Completed [facility] Vitamin B12 (Cyanocobalamin) Vitamin B12 (Cyanocobalamin) 2020-05-16 15:06:00 Completed [facility] Vitamin B12 (Cyanocobalamin) Vitamin B12 (Cyanocobalamin) 2020-05-16 15:06:00 Completed [facility] Vitamin B12 (Cyanocobalamin) Vitamin B12 (Cyanocobalamin) 2020-05-16 15:06:00 Completed [facility] Vitamin B12 (Cyanocobalamin) Vitamin B12 (Cyanocobalamin) 2020-05-16 15:06:00 Completed [facility] Vitamin B12 (Cyanocobalamin) Vitamin B12 (Cyanocobalamin) 2020-05-16 15:06:00 Completed [facility] Vitamin B12 (Cyanocobalamin) Vitamin B12 (Cyanocobalamin) 2020-05-16 15:06:00 Completed [facility] Vitamin B12 (Cyanocobalamin) Vitamin B12 (Cyanocobalamin) 2020-05-16 15:06:00 Completed [facility] Vitamin B12 (Cyanocobalamin) Vitamin B12 (Cyanocobalamin) 2020-05-16 15:06:00 Completed [facility] Vitamin B12 (Cyanocobalamin) Vitamin B12 (Cyanocobalamin) 2020-04-27 15:49:00 Completed [facility] Vitamin B12 (Cyanocobalamin) Vitamin B12 (Cyanocobalamin) 2020-04-27 15:49:00 Completed [facility] Vitamin B12 (Cyanocobalamin) Vitamin B12 (Cyanocobalamin) 2020-04-27 15:49:00 Completed [facility] Vitamin B12 (Cyanocobalamin) Vitamin B12 (Cyanocobalamin) 2020-04-27 15:49:00 Completed [facility] Vitamin B12 (Cyanocobalamin) Vitamin B12 (Cyanocobalamin) 2020-04-27 15:49:00 Completed [facility] Vitamin B12 (Cyanocobalamin) Vitamin B12 (Cyanocobalamin) 2020-04-27 15:49:00 Completed [facility] Vitamin B12 (Cyanocobalamin) Vitamin B12 (Cyanocobalamin) 2020-04-27 15:49:00 Completed [facility] Vitamin B12 (Cyanocobalamin) Vitamin B12 (Cyanocobalamin) 2020-04-27 15:49:00 Completed [facility] Vitamin B12 (Cyanocobalamin) Vitamin B12 (Cyanocobalamin) 2020-04-27 15:49:00 Completed [facility] Vitamin B12 (Cyanocobalamin) Vitamin B12 (Cyanocobalamin) 2020-04-27 15:49:00 Completed [facility] Vitamin B12 (Cyanocobalamin) Vitamin B12 (Cyanocobalamin) 2020-04-27 15:49:00 Completed [facility] Vitamin B12 (Cyanocobalamin) Vitamin B12 (Cyanocobalamin) 2020-04-27 15:49:00 Completed [facility] Vitamin B12 (Cyanocobalamin) Vitamin B12 (Cyanocobalamin) 2020-04-27 15:49:00 Completed [facility] Vitamin B12 (Cyanocobalamin) Vitamin B12 (Cyanocobalamin) 2020-04-27 15:49:00 Completed [facility] Vitamin B12 (Cyanocobalamin) Vitamin B12 (Cyanocobalamin) 2020-04-27 15:49:00 Completed [facility] Vitamin B12 (Cyanocobalamin) Vitamin B12 (Cyanocobalamin) 2020-04-27 15:49:00 Completed [facility] Vitamin B12 (Cyanocobalamin) Vitamin B12 (Cyanocobalamin) 2020-04-27 15:49:00 Completed [facility] Vitamin B12 (Cyanocobalamin) Vitamin B12 (Cyanocobalamin) 2020-04-27 15:49:00 Completed [facility] Vitamin B12 (Cyanocobalamin) Vitamin B12 (Cyanocobalamin) 2020-04-27 15:49:00 Completed [facility] Vitamin B12 (Cyanocobalamin) Vitamin B12 (Cyanocobalamin) 2020-04-27 15:49:00 Completed [facility] Vitamin B12 (Cyanocobalamin) Vitamin B12 (Cyanocobalamin) 2020-04-27 15:49:00 Completed [facility] Vitamin B12 (Cyanocobalamin) Vitamin B12 (Cyanocobalamin) 2020-04-27 15:49:00 Completed [facility] Vitamin B12 (Cyanocobalamin) Vitamin B12 (Cyanocobalamin) 2020-04-27 15:49:00 Completed [facility] Vitamin B12 (Cyanocobalamin) Vitamin B12 (Cyanocobalamin) 2020-04-27 15:49:00 Completed [facility] Vitamin B12 (Cyanocobalamin) Vitamin B12 (Cyanocobalamin) 2020-04-27 15:49:00 Completed [facility] Vitamin B12 (Cyanocobalamin) Vitamin B12 (Cyanocobalamin) 2020-04-27 15:49:00 Completed [facility] Vitamin B12 (Cyanocobalamin) Vitamin B12 (Cyanocobalamin) 2020-04-27 15:49:00 Completed [facility] Vitamin B12 (Cyanocobalamin) Vitamin B12 (Cyanocobalamin) 2020-04-27 15:49:00 Completed [facility] Vitamin B12 (Cyanocobalamin) Vitamin B12 (Cyanocobalamin) 2020-04-13 14:29:00 Completed [facility] Vitamin B12 (Cyanocobalamin) Vitamin B12 (Cyanocobalamin) 2020-04-13 14:29:00 Completed [facility] Vitamin B12 (Cyanocobalamin) Vitamin B12 (Cyanocobalamin) 2020-04-13 14:29:00 Completed [facility] Vitamin B12 (Cyanocobalamin) Vitamin B12 (Cyanocobalamin) 2020-04-13 14:29:00 Completed [facility] Vitamin B12 (Cyanocobalamin) Vitamin B12 (Cyanocobalamin) 2020-04-13 14:29:00 Completed [facility] Vitamin B12 (Cyanocobalamin) Vitamin B12 (Cyanocobalamin) 2020-04-13 14:29:00 Completed [facility] Vitamin B12 (Cyanocobalamin) Vitamin B12 (Cyanocobalamin) 2020-04-13 14:29:00 Completed [facility] Vitamin B12 (Cyanocobalamin) Vitamin B12 (Cyanocobalamin) 2020-04-13 14:29:00 Completed [facility] Vitamin B12 (Cyanocobalamin) Vitamin B12 (Cyanocobalamin) 2020-04-13 14:29:00 Completed [facility] Vitamin B12 (Cyanocobalamin) Vitamin B12 (Cyanocobalamin) 2020-04-13 14:29:00 Completed [facility] Vitamin B12 (Cyanocobalamin) Vitamin B12 (Cyanocobalamin) 2020-04-13 14:29:00 Completed [facility] Vitamin B12 (Cyanocobalamin) Vitamin B12 (Cyanocobalamin) 2020-04-13 14:29:00 Completed [facility] Vitamin B12 (Cyanocobalamin) Vitamin B12 (Cyanocobalamin) 2020-04-13 14:29:00 Completed [facility] Vitamin B12 (Cyanocobalamin) Vitamin B12 (Cyanocobalamin) 2020-04-13 14:29:00 Completed [facility] Vitamin B12 (Cyanocobalamin) Vitamin B12 (Cyanocobalamin) 2020-04-13 14:29:00 Completed [facility] Vitamin B12 (Cyanocobalamin) Vitamin B12 (Cyanocobalamin) 2020-04-13 14:29:00 Completed [facility] Vitamin B12 (Cyanocobalamin) Vitamin B12 (Cyanocobalamin) 2020-04-13 14:29:00 Completed [facility] Vitamin B12 (Cyanocobalamin) Vitamin B12 (Cyanocobalamin) 2020-04-13 14:29:00 Completed [facility] Vitamin B12 (Cyanocobalamin) Vitamin B12 (Cyanocobalamin) 2020-04-13 14:29:00 Completed [facility] Vitamin B12 (Cyanocobalamin) Vitamin B12 (Cyanocobalamin) 2020-04-13 14:29:00 Completed [facility] Vitamin B12 (Cyanocobalamin) Vitamin B12 (Cyanocobalamin) 2020-04-13 14:29:00 Completed [facility] Vitamin B12 (Cyanocobalamin) Vitamin B12 (Cyanocobalamin) 2020-04-13 14:29:00 Completed [facility] Vitamin B12 (Cyanocobalamin) Vitamin B12 (Cyanocobalamin) 2020-04-13 14:29:00 Completed [facility] Vitamin B12 (Cyanocobalamin) Vitamin B12 (Cyanocobalamin) 2020-04-13 14:29:00 Completed [facility] Vitamin B12 (Cyanocobalamin) Vitamin B12 (Cyanocobalamin) 2020-04-13 14:29:00 Completed [facility] Vitamin B12 (Cyanocobalamin) Vitamin B12 (Cyanocobalamin) 2020-04-13 14:29:00 Completed [facility] Vitamin B12 (Cyanocobalamin) Vitamin B12 (Cyanocobalamin) 2020-04-13 14:29:00 Completed [facility] Vitamin B12 (Cyanocobalamin) Vitamin B12 (Cyanocobalamin) 2020-04-13 14:29:00 Completed [facility] Vitamin B12 (Cyanocobalamin) Vitamin B12 (Cyanocobalamin) 2020-04-13 14:29:00 Completed [facility] Vitamin B12 (Cyanocobalamin) Vitamin B12 (Cyanocobalamin) 2020-04-13 14:29:00 Completed [facility] Vitamin B12 (Cyanocobalamin) Vitamin B12 (Cyanocobalamin) 2020-03-30 11:47:00 Completed [facility] Vitamin B12 (Cyanocobalamin) Vitamin B12 (Cyanocobalamin) 2020-03-30 11:47:00 Completed [facility] Vitamin B12 (Cyanocobalamin) Vitamin B12 (Cyanocobalamin) 2020-03-30 11:47:00 Completed [facility] Vitamin B12 (Cyanocobalamin) Vitamin B12 (Cyanocobalamin) 2020-03-30 11:47:00 Completed [facility] Vitamin B12 (Cyanocobalamin) Vitamin B12 (Cyanocobalamin) 2020-03-30 11:47:00 Completed [facility] Vitamin B12 (Cyanocobalamin) Vitamin B12 (Cyanocobalamin) 2020-03-30 11:47:00 Completed [facility] Vitamin B12 (Cyanocobalamin) Vitamin B12 (Cyanocobalamin) 2020-03-30 11:47:00 Completed [facility] Vitamin B12 (Cyanocobalamin) Vitamin B12 (Cyanocobalamin) 2020-03-30 11:47:00 Completed [facility] Vitamin B12 (Cyanocobalamin) Vitamin B12 (Cyanocobalamin) 2020-03-30 11:47:00 Completed [facility] Vitamin B12 (Cyanocobalamin) Vitamin B12 (Cyanocobalamin) 2020-03-30 11:47:00 Completed [facility] Vitamin B12 (Cyanocobalamin) Vitamin B12 (Cyanocobalamin) 2020-03-30 11:47:00 Completed [facility] Vitamin B12 (Cyanocobalamin) Vitamin B12 (Cyanocobalamin) 2020-03-30 11:47:00 Completed [facility] Vitamin B12 (Cyanocobalamin) Vitamin B12 (Cyanocobalamin) 2020-03-30 11:47:00 Completed [facility] Vitamin B12 (Cyanocobalamin) Vitamin B12 (Cyanocobalamin) 2020-03-30 11:47:00 Completed [facility] Vitamin B12 (Cyanocobalamin) Vitamin B12 (Cyanocobalamin) 2020-03-30 11:47:00 Completed [facility] Vitamin B12 (Cyanocobalamin) Vitamin B12 (Cyanocobalamin) 2020-03-30 11:47:00 Completed [facility] Vitamin B12 (Cyanocobalamin) Vitamin B12 (Cyanocobalamin) 2020-03-30 11:47:00 Completed [facility] Vitamin B12 (Cyanocobalamin) Vitamin B12 (Cyanocobalamin) 2020-03-30 11:47:00 Completed [facility] Vitamin B12 (Cyanocobalamin) Vitamin B12 (Cyanocobalamin) 2020-03-30 11:47:00 Completed [facility] Vitamin B12 (Cyanocobalamin) Vitamin B12 (Cyanocobalamin) 2020-03-30 11:47:00 Completed [facility] Vitamin B12 (Cyanocobalamin) Vitamin B12 (Cyanocobalamin) 2020-03-30 11:47:00 Completed [facility] Vitamin B12 (Cyanocobalamin) Vitamin B12 (Cyanocobalamin) 2020-03-30 11:47:00 Completed [facility] Vitamin B12 (Cyanocobalamin) Vitamin B12 (Cyanocobalamin) 2020-03-30 11:47:00 Completed [facility] Vitamin B12 (Cyanocobalamin) Vitamin B12 (Cyanocobalamin) 2020-03-30 11:47:00 Completed [facility] Vitamin B12 (Cyanocobalamin) Vitamin B12 (Cyanocobalamin) 2020-03-30 11:47:00 Completed [facility] Vitamin B12 (Cyanocobalamin) Vitamin B12 (Cyanocobalamin) 2020-03-30 11:47:00 Completed [facility] Vitamin B12 (Cyanocobalamin) Vitamin B12 (Cyanocobalamin) 2020-03-30 11:47:00 Completed [facility] Vitamin B12 (Cyanocobalamin) Vitamin B12 (Cyanocobalamin) 2020-03-30 11:47:00 Completed [facility] Vitamin B12 (Cyanocobalamin) Vitamin B12 (Cyanocobalamin) 2020-03-30 11:47:00 Completed [facility] Vitamin B12 (Cyanocobalamin) Vitamin B12 (Cyanocobalamin) 2020-03-30 11:47:00 Completed [facility] Vitamin B12 (Cyanocobalamin) Vitamin B12 (Cyanocobalamin) 2020-03-30 11:47:00 Completed [facility] Vitamin B12 (Cyanocobalamin) Vitamin B12 (Cyanocobalamin) 2020-03-30 11:47:00 Completed [facility] Vitamin B12 (Cyanocobalamin) Vitamin B12 (Cyanocobalamin) 2020-03-16 16:44:00 Completed [facility] Vitamin B12 (Cyanocobalamin) Vitamin B12 (Cyanocobalamin) 2020-03-16 16:44:00 Completed [facility] Vitamin B12 (Cyanocobalamin) Vitamin B12 (Cyanocobalamin) 2020-03-16 16:44:00 Completed [facility] Vitamin B12 (Cyanocobalamin) Vitamin B12 (Cyanocobalamin) 2020-03-16 16:44:00 Completed [facility] Vitamin B12 (Cyanocobalamin) Vitamin B12 (Cyanocobalamin) 2020-03-16 16:44:00 Completed [facility] Vitamin B12 (Cyanocobalamin) Vitamin B12 (Cyanocobalamin) 2020-03-16 16:44:00 Completed [facility] Vitamin B12 (Cyanocobalamin) Vitamin B12 (Cyanocobalamin) 2020-03-16 16:44:00 Completed [facility] Vitamin B12 (Cyanocobalamin) Vitamin B12 (Cyanocobalamin) 2020-03-16 16:44:00 Completed [facility] Vitamin B12 (Cyanocobalamin) Vitamin B12 (Cyanocobalamin) 2020-03-16 16:44:00 Completed [facility] Vitamin B12 (Cyanocobalamin) Vitamin B12 (Cyanocobalamin) 2020-03-16 16:44:00 Completed [facility] Vitamin B12 (Cyanocobalamin) Vitamin B12 (Cyanocobalamin) 2020-03-16 16:44:00 Completed [facility] Vitamin B12 (Cyanocobalamin) Vitamin B12 (Cyanocobalamin) 2020-03-16 16:44:00 Completed [facility] Vitamin B12 (Cyanocobalamin) Vitamin B12 (Cyanocobalamin) 2020-03-16 16:44:00 Completed [facility] Vitamin B12 (Cyanocobalamin) Vitamin B12 (Cyanocobalamin) 2020-03-16 16:44:00 Completed [facility] Vitamin B12 (Cyanocobalamin) Vitamin B12 (Cyanocobalamin) 2020-03-16 16:44:00 Completed [facility] Vitamin B12 (Cyanocobalamin) Vitamin B12 (Cyanocobalamin) 2020-03-16 16:44:00 Completed [facility] Vitamin B12 (Cyanocobalamin) Vitamin B12 (Cyanocobalamin) 2020-03-16 16:44:00 Completed [facility] Vitamin B12 (Cyanocobalamin) Vitamin B12 (Cyanocobalamin) 2020-03-16 16:44:00 Completed [facility] Vitamin B12 (Cyanocobalamin) Vitamin B12 (Cyanocobalamin) 2020-03-16 16:44:00 Completed [facility] Vitamin B12 (Cyanocobalamin) Vitamin B12 (Cyanocobalamin) 2020-03-16 16:44:00 Completed [facility] Vitamin B12 (Cyanocobalamin) Vitamin B12 (Cyanocobalamin) 2020-03-16 16:44:00 Completed [facility] Vitamin B12 (Cyanocobalamin) Vitamin B12 (Cyanocobalamin) 2020-03-16 16:44:00 Completed [facility] Vitamin B12 (Cyanocobalamin) Vitamin B12 (Cyanocobalamin) 2020-03-16 16:44:00 Completed [facility] Vitamin B12 (Cyanocobalamin) Vitamin B12 (Cyanocobalamin) 2020-03-16 16:44:00 Completed [facility] Vitamin B12 (Cyanocobalamin) Vitamin B12 (Cyanocobalamin) 2020-03-16 16:44:00 Completed [facility] Vitamin B12 (Cyanocobalamin) Vitamin B12 (Cyanocobalamin) 2020-03-16 16:44:00 Completed [facility] Vitamin B12 (Cyanocobalamin) Vitamin B12 (Cyanocobalamin) 2020-03-16 16:44:00 Completed [facility] Vitamin B12 (Cyanocobalamin) Vitamin B12 (Cyanocobalamin) 2020-03-16 16:44:00 Completed [facility] Vitamin B12 (Cyanocobalamin) Vitamin B12 (Cyanocobalamin) 2020-03-16 16:44:00 Completed [facility] Vitamin B12 (Cyanocobalamin) Vitamin B12 (Cyanocobalamin) 2020-03-16 16:44:00 Completed [facility] Vitamin B12 (Cyanocobalamin) Vitamin B12 (Cyanocobalamin) 2020-03-16 16:44:00 Completed [facility] Vitamin B12 (Cyanocobalamin) Vitamin B12 (Cyanocobalamin) 2020-03-16 16:44:00 Completed [facility] Vitamin B12 (Cyanocobalamin) Vitamin B12 (Cyanocobalamin) 2020-03-16 16:44:00 Completed [facility] Vitamin B12 (Cyanocobalamin) Vitamin B12 (Cyanocobalamin) 2020-03-16 16:44:00 Completed [facility] Vitamin B12 (Cyanocobalamin) Vitamin B12 (Cyanocobalamin) 2020-03-16 16:44:00 Completed [facility] Kenalog (Triamcinolone) Kenalog (Triamcinolone) 2019-08-03 15:15:00 Completed [facility] Kenalog (Triamcinolone) Kenalog (Triamcinolone) 2019-08-03 15:15:00 Completed [facility] Kenalog (Triamcinolone) Kenalog (Triamcinolone) 2019-08-03 15:15:00 Completed [facility] Kenalog (Triamcinolone) Kenalog (Triamcinolone) 2019-08-03 15:15:00 Completed [facility] Kenalog (Triamcinolone) Kenalog (Triamcinolone) 2019-08-03 15:15:00 Completed [facility] Kenalog (Triamcinolone) Kenalog (Triamcinolone) 2019-08-03 15:15:00 Completed [facility] Kenalog (Triamcinolone) Kenalog (Triamcinolone) 2019-08-03 15:15:00 Completed [facility] Kenalog (Triamcinolone) Kenalog (Triamcinolone) 2019-08-03 15:15:00 Completed [facility] Kenalog (Triamcinolone) Kenalog (Triamcinolone) 2019-08-03 15:15:00 Completed [facility] Kenalog (Triamcinolone) Kenalog (Triamcinolone) 2019-08-03 15:15:00 Completed [facility] Kenalog (Triamcinolone) Kenalog (Triamcinolone) 2019-08-03 15:15:00 Com[facility] Kenalog (Triamcinolone) Kenalog (Triamcinolone) 2019-08-03 15:15:00 Completed [facility] Kenalog (Triamcinolone) Kenalog (Triamcinolone) 2019-08-03 15:15:00 Completed [facility] Kenalog (Triamcinolone) Kenalog (Triamcinolone) 2019-08-03 15:15:00 Completed [facility] Kenalog (Triamcinolone) Kenalog (Triamcinolone) 2019-08-03 15:15:00 Completed [facility] Kenalog (Triamcinolone) Kenalog (Triamcinolone) 2019-08-03 15:15:00 Completed [facility] Kenalog (Triamcinolone) Kenalog (Triamcinolone) 2019-08-03 15:15:00 Completed [facility] Kenalog (Triamcinolone) Kenalog (Triamcinolone) 2019-08-03 15:15:00 Completed [facility] Kenalog (Triamcinolone) Kenalog (Triamcinolone) 2019-08-03 15:15:00 Completed [facility] Kenalog (Triamcinolone) Kenalog (Triamcinolone) 2019-08-03 15:15:00 Completed [facility] Kenalog (Triamcinolone) Kenalog (Triamcinolone) 2019-08-03 15:15:00 Completed [facility] Kenalog (Triamcinolone) Kenalog (Triamcinolone) 2019-08-03 15:15:00 Completed [facility] Kenalog (Triamcinolone) Kenalog (Triamcinolone) 2019-08-03 15:15:00 Completed [facility] Kenalog (Triamcinolone) Kenalog (Triamcinolone) 2019-08-03 15:15:00 Completed [facility] Kenalog (Triamcinolone) Kenalog (Triamcinolone) 2019-08-03 15:15:00 [facility]pleted [facility] Kenalog (Triamcinolone) Kenalog (Triamcinolone) 2019-08-03 15:15:00 Completed [facility] Kenalog (Triamcinolone) Kenalog (Triamcinolone) 2019-08-03 15:15:00 Completed [facility] Kenalog (Triamcinolone) Kenalog (Triamcinolone) 2019-08-03 15:15:00 Completed [facility] Kenalog (Triamcinolone) Kenalog (Triamcinolone) 2019-08-03 15:15:00 Completed [facility] Kenalog (Triamcinolone) Kenalog (Triamcinolone) 2019-08-03 15:15:00 Completed [facility] Kenalog (Triamcinolone) Kenalog (Triamcinolone) 2019-08-03 15:15:00 Completed [facility] Kenalog (Triamcinolone) Kenalog (Triamcinolone) 2019-08-03 15:15:00 Completed [facility] Kenalog (Triamcinolone) Kenalog (Triamcinolone) 2019-08-03 15:15:00 Completed [facility] Kenalog (Triamcinolone) Kenalog (Triamcinolone) 2019-08-03 15:15:00 Completed [facility] Kenalog (Triamcinolone) Kenalog (Triamcinolone) 2019-08-03 15:15:00 Completed [facility] Kenalog (Triamcinolone) Kenalog (Triamcinolone) 2019-07-06 10:04:00 Completed [facility] Kenalog (Triamcinolone) Kenalog (Triamcinolone) 2019-07-06 10:04:00 Completed [facility] Kenalog (Triamcinolone) Kenalog (Triamcinolone) 2019-07-06 10:04:00 Completed [facility] Kenalog (Triamcinolone) Kenalog (Triamcinolone) 2019-07-06 10:04:00 [facility] Kenalog (Triamcinolone) Kenalog (Triamcinolone) 2019-07-06 10:04:00 [facility] Kenalog (Triamcinolone) Kenalog (Triamcinolone) 2019-07-06 10:04:00 Completed [facility] Kenalog (Triamcinolone) Kenalog (Triamcinolone) 2019-07-06 10:04:00 [facility] Kenalog (Triamcinolone) Kenalog (Triamcinolone) 2019-07-06 10:04:00 Completed [facility] Kenalog (Triamcinolone) Kenalog (Triamcinolone) 2019-07-06 10:04:00 Completed [facility] Kenalog (Triamcinolone) Kenalog (Triamcinolone) 2019-07-06 10:04:00 Completed [facility] Kenalog (Triamcinolone) Kenalog (Triamcinolone) 2019-07-06 10:04:00 Completed [facility] Kenalog (Triamcinolone) Kenalog (Triamcinolone) 2019-07-06 10:04:00 Completed [facility] Kenalog (Triamcinolone) Kenalog (Triamcinolone) 2019-07-06 10:04:00 Completed [facility] Kenalog (Triamcinolone) Kenalog (Triamcinolone) 2019-07-06 10:04:00 [facility] Kenalog (Triamcinolone) Kenalog (Triamcinolone) 2019-07-06 10:04:00 Completed [facility] Kenalog (Triamcinolone) Kenalog (Triamcinolone) 2019-07-06 10:04:00 Completed [facility] Kenalog (Triamcinolone) Kenalog (Triamcinolone) 2019-07-06 10:04:00 Completed [facility] Kenalog (Triamcinolone) Kenalog (Triamcinolone) 2019-07-06 10:04:00 Completed [facility] Kenalog (Triamcinolone) Kenalog (Triamcinolone) 2019-07-06 10:04:00 [facility]pleted [facility] Kenalog (Triamcinolone) Kenalog (Triamcinolone) 2019-07-06 10:04:00 Completed [facility] Kenalog (Triamcinolone) Kenalog (Triamcinolone) 2019-07-06 10:04:00 Completed [facility] Kenalog (Triamcinolone) Kenalog (Triamcinolone) 2019-07-06 10:04:00 Completed [facility] Kenalog (Triamcinolone) Kenalog (Triamcinolone) 2019-07-06 10:04:00 Completed [facility] Kenalog (Triamcinolone) Kenalog (Triamcinolone) 2019-07-06 10:04:00 Completed [facility] Kenalog (Triamcinolone) Kenalog (Triamcinolone) 2019-07-06 10:04:00 Completed [facility] Kenalog (Triamcinolone) Kenalog (Triamcinolone) 2019-07-06 10:04:00 Completed [facility] Kenalog (Triamcinolone) Kenalog (Triamcinolone) 2019-07-06 10:04:00 Completed [facility] Kenalog (Triamcinolone) Kenalog (Triamcinolone) 2019-07-06 10:04:00 Completed [facility] Kenalog (Triamcinolone) Kenalog (Triamcinolone) 2019-07-06 10:04:00 Completed [facility] Kenalog (Triamcinolone) Kenalog (Triamcinolone) 2019-07-06 10:04:00 Completed [facility] Kenalog (Triamcinolone) Kenalog (Triamcinolone) 2019-07-06 10:04:00 Completed [facility] Kenalog (Triamcinolone) Kenalog (Triamcinolone) 2019-07-06 10:04:00 [facility] Kenalog (Triamcinolone) Kenalog (Triamcinolone) 2019-07-06 10:04:00 [facility] Kenalog (Triamcinolone) Kenalog (Triamcinolone) 2019-07-06 10:04:00 [facility] Kenalog (Triamcinolone) Kenalog (Triamcinolone) 2019-07-06 10:04:00 [facility]pleted [facility] Kenalog (Triamcinolone) Kenalog (Triamcinolone) 2019-05-17 15:11:00 Completed [facility] Kenalog (Triamcinolone) Kenalog (Triamcinolone) 2019-05-17 15:11:00 Completed [facility] Kenalog (Triamcinolone) Kenalog (Triamcinolone) 2019-05-17 15:11:00 Completed [facility] Kenalog (Triamcinolone) Kenalog (Triamcinolone) 2019-05-17 15:11:00 Completed [facility] Kenalog (Triamcinolone) Kenalog (Triamcinolone) 2019-05-17 15:11:00 Completed [facility] Kenalog (Triamcinolone) Kenalog (Triamcinolone) 2019-05-17 15:11:00 Completed [facility] Kenalog (Triamcinolone) Kenalog (Triamcinolone) 2019-05-17 15:11:00 Completed [facility] Kenalog (Triamcinolone) Kenalog (Triamcinolone) 2019-05-17 15:11:00 Completed [facility] Kenalog (Triamcinolone) Kenalog (Triamcinolone) 2019-05-17 15:11:00 Completed [facility] Kenalog (Triamcinolone) Kenalog (Triamcinolone) 2019-05-17 15:11:00 [facility] Kenalog (Triamcinolone) Kenalog (Triamcinolone) 2019-05-17 15:11:00 [facility]pleted [facility] Kenalog (Triamcinolone) Kenalog (Triamcinolone) 2019-05-17 15:11:00 [facility]pleted [facility] Kenalog (Triamcinolone) Kenalog (Triamcinolone) 2019-05-17 15:11:00 [facility]pleted [facility] Kenalog (Triamcinolone) Kenalog (Triamcinolone) 2019-05-17 15:11:00 [facility]pleted [facility] Kenalog (Triamcinolone) Kenalog (Triamcinolone) 2019-05-17 15:11:00 [facility]pleted [facility] Kenalog (Triamcinolone) Kenalog (Triamcinolone) 2019-05-17 15:11:00 Completed [facility] Kenalog (Triamcinolone) Kenalog (Triamcinolone) 2019-05-17 15:11:00 Completed [facility] Kenalog (Triamcinolone) Kenalog (Triamcinolone) 2019-05-17 15:11:00 [facility] Kenalog (Triamcinolone) Kenalog (Triamcinolone) 2019-05-17 15:11:00 Completed [facility] Kenalog (Triamcinolone) Kenalog (Triamcinolone) 2019-05-17 15:11:00 [facility]pleted [facility] Kenalog (Triamcinolone) Kenalog (Triamcinolone) 2019-05-17 15:11:00 Completed [facility] Kenalog (Triamcinolone) Kenalog (Triamcinolone) 2019-05-17 15:11:00 Completed [facility] Kenalog (Triamcinolone) Kenalog (Triamcinolone) 2019-05-17 15:11:00 Completed [facility] Kenalog (Triamcinolone) Kenalog (Triamcinolone) 2019-05-17 15:11:00 Completed [facility] Kenalog (Triamcinolone) Kenalog (Triamcinolone) 2019-05-17 15:11:00 Completed [facility] Kenalog (Triamcinolone) Kenalog (Triamcinolone) 2019-05-17 15:11:00 [facility]pleted [facility] Kenalog (Triamcinolone) Kenalog (Triamcinolone) 2019-05-17 15:11:00 [facility]pleted [facility] Kenalog (Triamcinolone) Kenalog (Triamcinolone) 2019-05-17 15:11:00 [facility]pleted [facility] Kenalog (Triamcinolone) Kenalog (Triamcinolone) 2019-05-17 15:11:00 [facility]pleted [facility] Kenalog (Triamcinolone) Kenalog (Triamcinolone) 2019-05-17 15:11:00 Completed [facility] Kenalog (Triamcinolone) Kenalog (Triamcinolone) 2019-05-17 15:11:00 [facility] Kenalog (Triamcinolone) Kenalog (Triamcinolone) 2019-05-17 15:11:00 Completed [facility] Kenalog (Triamcinolone) Kenalog (Triamcinolone) 2019-05-17 15:11:00 [facility] Kenalog (Triamcinolone) Kenalog (Triamcinolone) 2019-05-17 15:11:00 [facility]pleted [facility] Kenalog (Triamcinolone) Kenalog (Triamcinolone) 2019-05-17 15:11:00 [facility] Kenalog (Triamcinolone) Kenalog (Triamcinolone) 2018-03-25 10:41:00 Completed [facility] Kenalog (Triamcinolone) Kenalog (Triamcinolone) 2018-03-25 10:41:00 [facility]pleted [facility] Kenalog (Triamcinolone) Kenalog (Triamcinolone) 2018-03-25 10:41:00 [facility]pleted [facility] Kenalog (Triamcinolone) Kenalog (Triamcinolone) 2018-03-25 10:41:00 Completed [facility] Kenalog (Triamcinolone) Kenalog (Triamcinolone) 2018-03-25 10:41:00 Completed [facility] Kenalog (Triamcinolone) Kenalog (Triamcinolone) 2018-03-25 10:41:00 [facility]pleted [facility] Kenalog (Triamcinolone) Kenalog (Triamcinolone) 2018-03-25 10:41:00 [facility]pleted [facility] Kenalog (Triamcinolone) Kenalog (Triamcinolone) 2018-03-25 10:41:00 [facility] Kenalog (Triamcinolone) Kenalog (Triamcinolone) 2018-03-25 10:41:00 [facility] Kenalog (Triamcinolone) Kenalog (Triamcinolone) 2018-03-25 10:41:00 [facility] Kenalog (Triamcinolone) Kenalog (Triamcinolone) 2018-03-25 10:41:00 [facility] Kenalog (Triamcinolone) Kenalog (Triamcinolone) 2018-03-25 10:41:00 [facility] Kenalog (Triamcinolone) Kenalog (Triamcinolone) 2018-03-25 10:41:00 [facility] Kenalog (Triamcinolone) Kenalog (Triamcinolone) 2018-03-25 10:41:00 Completed [facility] Kenalog (Triamcinolone) Kenalog (Triamcinolone) 2018-03-25 10:41:00 [facility] Kenalog (Triamcinolone) Kenalog (Triamcinolone) 2018-03-25 10:41:00 [facility]pleted [facility] Kenalog (Triamcinolone) Kenalog (Triamcinolone) 2018-03-25 10:41:00 [facility] Kenalog (Triamcinolone) Kenalog (Triamcinolone) 2018-03-25 10:41:00 [facility] Kenalog (Triamcinolone) Kenalog (Triamcinolone) 2018-03-25 10:41:00 [facility] Kenalog (Triamcinolone) Kenalog (Triamcinolone) 2018-03-25 10:41:00 [facility] Kenalog (Triamcinolone) Kenalog (Triamcinolone) 2018-03-25 10:41:00 [facility] Kenalog (Triamcinolone) Kenalog (Triamcinolone) 2018-03-25 10:41:00 [facility]pleted [facility] Kenalog (Triamcinolone) Kenalog (Triamcinolone) 2018-03-25 10:41:00 Completed [facility] Kenalog (Triamcinolone) Kenalog (Triamcinolone) 2018-03-25 10:41:00 Completed [facility] Kenalog (Triamcinolone) Kenalog (Triamcinolone) 2018-03-25 10:41:00 Completed [facility] Kenalog (Triamcinolone) Kenalog (Triamcinolone) 2018-03-25 10:41:00 Completed [facility] Kenalog (Triamcinolone) Kenalog (Triamcinolone) 2018-03-25 10:41:00 Completed [facility] Kenalog (Triamcinolone) Kenalog (Triamcinolone) 2018-03-25 10:41:00 Completed [facility] Kenalog (Triamcinolone) Kenalog (Triamcinolone) 2018-03-25 10:41:00 Completed [facility] Kenalog (Triamcinolone) Kenalog (Triamcinolone) 2018-03-25 10:41:00 Completed [facility] Kenalog (Triamcinolone) Kenalog (Triamcinolone) 2018-03-25 10:41:00 Completed [facility] Kenalog (Triamcinolone) Kenalog (Triamcinolone) 2018-03-25 10:41:00 Completed [facility] Kenalog (Triamcinolone) Kenalog (Triamcinolone) 2018-03-25 10:41:00 Completed [facility] Kenalog (Triamcinolone) Kenalog (Triamcinolone) 2018-03-25 10:41:00 Completed [facility] Kenalog (Triamcinolone) Kenalog (Triamcinolone) 2018-03-25 10:41:00 Completed [facility] Kenalog (Triamcinolone) Kenalog (Triamcinolone) 2017-11-04 10:43:00 Completed [facility] Kenalog (Triamcinolone) Kenalog (Triamcinolone) 2017-11-04 10:43:00 Completed [facility] Kenalog (Triamcinolone) Kenalog (Triamcinolone) 2017-11-04 10:43:00 Completed [facility] Kenalog (Triamcinolone) Kenalog (Triamcinolone) 2017-11-04 10:43:00 Completed [facility] Kenalog (Triamcinolone) Kenalog (Triamcinolone) 2017-11-04 10:43:00 Completed [facility] Kenalog (Triamcinolone) Kenalog (Triamcinolone) 2017-11-04 10:43:00 [facility] Kenalog (Triamcinolone) Kenalog (Triamcinolone) 2017-11-04 10:43:00 Completed [facility] Kenalog (Triamcinolone) Kenalog (Triamcinolone) 2017-11-04 10:43:00 Completed [facility] Kenalog (Triamcinolone) Kenalog (Triamcinolone) 2017-11-04 10:43:00 Completed [facility] Kenalog (Triamcinolone) Kenalog (Triamcinolone) 2017-11-04 10:43:00 [facility] Kenalog (Triamcinolone) Kenalog (Triamcinolone) 2017-11-04 10:43:00 Completed [facility] Kenalog (Triamcinolone) Kenalog (Triamcinolone) 2017-11-04 10:43:00 Completed [facility] Kenalog (Triamcinolone) Kenalog (Triamcinolone) 2017-11-04 10:43:00 [facility] Kenalog (Triamcinolone) Kenalog (Triamcinolone) 2017-11-04 10:43:00 [facility] Kenalog (Triamcinolone) Kenalog (Triamcinolone) 2017-11-04 10:43:00 Completed [facility] Kenalog (Triamcinolone) Kenalog (Triamcinolone) 2017-11-04 10:43:00 Completed [facility] Kenalog (Triamcinolone) Kenalog (Triamcinolone) 2017-11-04 10:43:00 Completed [facility] Kenalog (Triamcinolone) Kenalog (Triamcinolone) 2017-11-04 10:43:00 Completed [facility] Kenalog (Triamcinolone) Kenalog (Triamcinolone) 2017-11-04 10:43:00 Completed [facility] Kenalog (Triamcinolone) Kenalog (Triamcinolone) 2017-11-04 10:43:00 [facility] Kenalog (Triamcinolone) Kenalog (Triamcinolone) 2017-11-04 10:43:00 Completed [facility] Kenalog (Triamcinolone) Kenalog (Triamcinolone) 2017-11-04 10:43:00 Completed [facility] Kenalog (Triamcinolone) Kenalog (Triamcinolone) 2017-11-04 10:43:00 Completed [facility] Kenalog (Triamcinolone) Kenalog (Triamcinolone) 2017-11-04 10:43:00 Completed [facility] Kenalog (Triamcinolone) Kenalog (Triamcinolone) 2017-11-04 10:43:00 Completed [facility] Kenalog (Triamcinolone) Kenalog (Triamcinolone) 2017-11-04 10:43:00 Completed [facility] Kenalog (Triamcinolone) Kenalog (Triamcinolone) 2017-11-04 10:43:00 Completed [facility] Kenalog (Triamcinolone) Kenalog (Triamcinolone) 2017-11-04 10:43:00 Completed [facility] Kenalog (Triamcinolone) Kenalog (Triamcinolone) 2017-11-04 10:43:00 Completed [facility] Kenalog (Triamcinolone) Kenalog (Triamcinolone) 2017-11-04 10:43:00 Completed [facility] Kenalog (Triamcinolone) Kenalog (Triamcinolone) 2017-11-04 10:43:00 Completed [facility] Kenalog (Triamcinolone) Kenalog (Triamcinolone) 2017-11-04 10:43:00 Completed [facility] Kenalog (Triamcinolone) Kenalog (Triamcinolone) 2017-11-04 10:43:00 Completed [facility] Kenalog (Triamcinolone) Kenalog (Triamcinolone) 2017-11-04 10:43:00 Completed [facility] Kenalog (Triamcinolone) Kenalog (Triamcinolone) 2017-11-04 10:43:00 Completed [facility] Influenza Virus Vaccine 2007-09-22 00:00:00 Completed [facility] Pneumococcal Polysaccharide, PPSV23 (PNEUMOVAX) 2007-09-22 00:00:00 Completed [facility] Influenza Virus Vaccine 2007-09-22 00:00:00 Completed [facility] Pneumococcal Polysaccharide, PPSV23 (PNEUMOVAX) 2007-09-22 00:00:00 Completed [facility] Influenza Virus Vaccine 2007-09-22 00:00:00 Completed [facility] Pneumococcal Polysaccharide, PPSV23 (PNEUMOVAX) 2007-09-22 00:00:00 Completed [facility] Influenza Virus Vaccine 2007-09-22 00:00:00 Completed [facility] Pneumococcal Polysaccharide, PPSV23 (PNEUMOVAX) 2007-09-22 00:00:00 Completed [facility] Influenza Virus Vaccine 2007-09-22 00:00:00 Completed [facility] Pneumococcal Polysaccharide, PPSV23 (PNEUMOVAX) 2007-09-22 00:00:00 Completed [facility] Influenza Virus Vaccine 2007-09-22 00:00:00 Completed [facility] Pneumococcal Polysaccharide, PPSV23 (PNEUMOVAX) 2007-09-22 00:00:00 Completed [facility] Influenza Virus Vaccine 2007-09-22 00:00:00 Completed [facility] Pneumococcal Polysaccharide, PPSV23 (PNEUMOVAX) 2007-09-22 00:00:00 Completed [facility] Influenza Virus Vaccine 2007-09-22 00:00:00 Completed [facility] Pneumococcal Polysaccharide, PPSV23 (PNEUMOVAX) 2007-09-22 00:00:00 Completed [facility] Influenza Virus Vaccine 2007-09-22 00:00:00 Completed [facility] Pneumococcal Polysaccharide, PPSV23 (PNEUMOVAX) 2007-09-22 00:00:00 Completed [facility] Influenza Virus Vaccine 2007-09-22 00:00:00 Completed [facility] Pneumococcal Polysaccharide, PPSV23 (PNEUMOVAX) 2007-09-22 00:00:00 Completed [facility] Influenza Virus Vaccine 2007-09-22 00:00:00 Completed [facility] Pneumococcal Polysaccharide, PPSV23 (PNEUMOVAX) 2007-09-22 00:00:00 Completed [facility] Influenza Virus Vaccine 2007-09-22 00:00:00 Completed [facility] Pneumococcal Polysaccharide, PPSV23 (PNEUMOVAX) 2007-09-22 00:00:00 Completed [facility] Influenza Virus Vaccine 2007-09-22 00:00:00 Completed [facility] Pneumococcal Polysaccharide, PPSV23 (PNEUMOVAX) 2007-09-22 00:00:00 Completed [facility] Influenza Virus Vaccine 2007-09-22 00:00:00 Completed [facility] Pneumococcal Polysaccharide, PPSV23 (PNEUMOVAX) 2007-09-22 00:00:00 Completed [facility] Influenza Virus Vaccine 2007-09-22 00:00:00 Completed [facility] Pneumococcal Polysaccharide, PPSV23 (PNEUMOVAX) 2007-09-22 00:00:00 Completed [facility] Influenza Virus Vaccine 2007-09-22 00:00:00 Completed [facility] Pneumococcal Polysaccharide, PPSV23 (PNEUMOVAX) 2007-09-22 00:00:00 Completed [facility] Influenza Virus Vaccine 2007-09-22 00:00:00 Completed [facility] Pneumococcal Polysaccharide, PPSV23 (PNEUMOVAX) 2007-09-22 00:00:00 Completed [facility] [facility] Influenza Virus Vaccine 2007-09-22 00:00:00 Completed [facility] Pneumococcal Polysaccharide, PPSV23 (PNEUMOVAX) 2007-09-22 00:00:00 Completed [facility] Influenza Virus Vaccine 2007-09-22 00:00:00 Completed [facility] Pneumococcal Polysaccharide, PPSV23 (PNEUMOVAX) 2007-09-22 00:00:00 Completed [facility] Influenza Virus Vaccine 2007-09-22 00:00:00 Completed [facility] Pneumococcal Polysaccharide, PPSV23 (PNEUMOVAX) 2007-09-22 00:00:00 Completed [facility] Influenza Virus Vaccine 2007-09-22 00:00:00 Completed [facility] Pneumococcal Polysaccharide, PPSV23 (PNEUMOVAX) 2007-09-22 00:00:00 Completed [facility] Influenza Virus Vaccine 2007-09-22 00:00:00 Completed [facility] Pneumococcal Polysaccharide, PPSV23 (PNEUMOVAX) 2007-09-22 00:00:00 Completed [facility] Influenza Virus Vaccine 2007-09-22 00:00:00 Completed [facility] Pneumococcal Polysaccharide, PPSV23 (PNEUMOVAX) 2007-09-22 00:00:00 Completed [facility] Influenza Virus Vaccine 2007-09-22 00:00:00 Completed [facility] Pneumococcal Polysaccharide, PPSV23 (PNEUMOVAX) 2007-09-22 00:00:00 Completed [facility] Influenza Virus Vaccine 2007-09-22 00:00:00 Completed [facility] Pneumococcal Polysaccharide, PPSV23 (PNEUMOVAX) 2007-09-22 00:00:00 Completed [facility] Influenza Virus Vaccine 2007-09-22 00:00:00 Completed [facility] Pneumococcal Polysaccharide, PPSV23 (PNEUMOVAX) 2007-09-22 00:00:00 Completed [facility] Influenza Virus Vaccine 2007-09-22 00:00:00 Completed [facility] Pneumococcal Polysaccharide, PPSV23 (PNEUMOVAX) 2007-09-22 00:00:00 Completed [facility] Influenza Virus Vaccine 2007-09-22 00:00:00 Completed [facility] Pneumococcal Polysaccharide, PPSV23 (PNEUMOVAX) 2007-09-22 00:00:00 Completed [facility] Influenza Virus Vaccine 2007-09-22 00:00:00 Completed [facility] Pneumococcal Polysaccharide, PPSV23 (PNEUMOVAX) 2007-09-22 00:00:00 Completed [facility] Influenza Virus Vaccine 2007-09-22 00:00:00 Completed [facility] Pneumococcal Polysaccharide, PPSV23 (PNEUMOVAX) 2007-09-22 00:00:00 Completed [facility] Influenza Virus Vaccine 2007-09-22 00:00:00 Completed [facility] Pneumococcal Polysaccharide, PPSV23 (PNEUMOVAX) 2007-09-22 00:00:00 Completed [facility] Influenza Virus Vaccine 2007-09-22 00:00:00 Completed [facility] Pneumococcal Polysaccharide, PPSV23 (PNEUMOVAX) 2007-09-22 00:00:00 Completed [facility] Influenza Virus Vaccine 2007-09-22 00:00:00 Completed [facility] Pneumococcal Polysaccharide, PPSV23 (PNEUMOVAX) 2007-09-22 00:00:00 Completed [facility] Influenza Virus Vaccine 2007-09-22 00:00:00 Completed [facility] Pneumococcal Polysaccharide, PPSV23 (PNEUMOVAX) 2007-09-22 00:00:00 Completed [facility] Influenza Virus Vaccine 2007-09-22 00:00:00 Completed [facility] Pneumococcal Polysaccharide, PPSV23 (PNEUMOVAX) 2007-09-22 00:00:00 Completed [facility] Influenza Virus Vaccine 2007-09-22 00:00:00 Completed [facility] Pneumococcal Polysaccharide, PPSV23 (PNEUMOVAX) 2007-09-22 00:00:00 Completed [facility] Influenza Virus Vaccine 2007-09-22 00:00:00 Completed [facility] Pneumococcal Polysaccharide, PPSV23 (PNEUMOVAX) 2007-09-22 00:00:00 Completed [facility] Influenza Virus Vaccine 2007-09-22 00:00:00 Completed [facility] Pneumococcal Polysaccharide, PPSV23 (PNEUMOVAX) 2007-09-22 00:00:00 Completed [facility] Influenza Virus Vaccine 2007-09-22 00:00:00 Completed [facility] Pneumococcal Polysaccharide, PPSV23 (PNEUMOVAX) 2007-09-22 00:00:00 Completed [facility] Influenza Virus Vaccine 2007-09-22 00:00:00 Completed [facility] Pneumococcal Polysaccharide, PPSV23 (PNEUMOVAX) 2007-09-22 00:00:00 Completed [facility] Influenza Virus Vaccine 2007-09-22 00:00:00 Completed [facility] Pneumococcal Polysaccharide, PPSV23 (PNEUMOVAX) 2007-09-22 00:00:00 Completed [facility] Prevnar 20 (PCV20) Prevnar 20 (PCV20) Unknown Completed [facility] FLUZONE HIGH DOSE OVER 65 FLUZONE HIGH DOSE OVER 65 Unknown Completed [facility] Prevnar 20 (PCV20) Prevnar 20 (PCV20) Unknown Completed [facility] FLUZONE HIGH DOSE OVER 65 FLUZONE HIGH DOSE OVER 65 Unknown Completed [facility] Prevnar 20 (PCV20) Prevnar 20 (PCV20) Unknown Completed [facility] FLUZONE HIGH DOSE OVER 65 FLUZONE HIGH DOSE OVER 65 Unknown Completed [facility] Prevnar 20 (PCV20) Prevnar 20 (PCV20) Unknown Completed [facility] FLUZONE HIGH DOSE OVER 65 FLUZONE HIGH DOSE OVER 65 Unknown Completed [facility] Prevnar 20 (PCV20) Prevnar 20 (PCV20) Unknown Completed [facility] FLUZONE HIGH DOSE OVER 65 FLUZONE HIGH DOSE OVER 65 Unknown Completed [facility] Prevnar 20 (PCV20) Prevnar 20 (PCV20) Unknown Completed [facility] FLUZONE HIGH DOSE OVER 65 FLUZONE HIGH DOSE OVER 65 Unknown Completed [facility] Prevnar 20 (PCV20) Prevnar 20 (PCV20) Unknown Completed [facility] FLUZONE HIGH DOSE OVER 65 FLUZONE HIGH DOSE OVER 65 Unknown Completed [facility] Prevnar 20 (PCV20) Prevnar 20 (PCV20) Unknown Completed [facility] FLUZONE HIGH DOSE OVER 65 FLUZONE HIGH DOSE OVER 65 Unknown Completed [facility] Prevnar 20 (PCV20) Prevnar 20 (PCV20) Unknown Completed [facility] FLUZONE HIGH DOSE OVER 65 FLUZONE HIGH DOSE OVER 65 Unknown Completed [facility] Prevnar 20 (PCV20) Prevnar 20 (PCV20) Unknown Completed [facility] FluAD Quad SD FluAD Quad SD Unknown Completed [facility] FLUZONE HIGH DOSE OVER 65 FLUZONE HIGH DOSE OVER 65 Unknown Completed [facility] Prevnar 20 (PCV20) Prevnar 20 (PCV20) Unknown Completed [facility] FluAD Quad SD FluAD Quad SD Unknown Completed [facility] FLUZONE HIGH DOSE OVER 65 FLUZONE HIGH DOSE OVER 65 Unknown Completed [facility] Prevnar 20 (PCV20) Prevnar 20 (PCV20) Unknown Completed [facility] FluAD Quad SD FluAD Quad SD Unknown Completed [facility] FLUZONE HIGH DOSE OVER 65 FLUZONE HIGH DOSE OVER 65 Unknown Completed [facility] Prevnar 20 (PCV20) Prevnar 20 (PCV20) Unknown Completed [facility] FluAD Quad SD FluAD Quad SD Unknown Completed [facility] FLUZONE HIGH DOSE OVER 65 FLUZONE HIGH DOSE OVER 65 Unknown Completed [facility] Prevnar 20 (PCV20) Prevnar 20 (PCV20) Unknown Completed [facility] FluAD Quad SD FluAD Quad SD Unknown Completed [facility] FLUZONE HIGH DOSE OVER 65 FLUZONE HIGH DOSE OVER 65 Unknown Completed [facility] Prevnar 20 (PCV20) Prevnar 20 (PCV20) Unknown Completed [facility] FluAD Quad SD FluAD Quad SD Unknown Completed [facility] FLUZONE HIGH DOSE OVER 65 FLUZONE HIGH DOSE OVER 65 Unknown Completed [facility] Prevnar 20 (PCV20) Prevnar 20 (PCV20) Unknown Completed [facility] FluAD Quad SD FluAD Quad SD Unknown Completed [facility] FLUZONE HIGH DOSE OVER 65 FLUZONE HIGH DOSE OVER 65 Unknown Completed [facility] Prevnar 20 (PCV20) Prevnar 20 (PCV20) Unknown Completed [facility] FluAD Quad SD FluAD Quad SD Unknown Completed [facility] FLUZONE HIGH DOSE OVER 65 FLUZONE HIGH DOSE OVER 65 Unknown Completed [facility] Prevnar 20 (PCV20) Prevnar 20 (PCV20) Unknown Completed [facility] FluAD Quad SD FluAD Quad SD Unknown Completed [facility] FLUZONE HIGH DOSE OVER 65 FLUZONE HIGH DOSE OVER 65 Unknown Completed [facility] Prevnar 20 (PCV20) Prevnar 20 (PCV20) Unknown Completed [facility] FluAD Quad SD FluAD Quad SD Unknown Completed [facility] FLUZONE HIGH DOSE OVER 65 FLUZONE HIGH DOSE OVER 65 Unknown Completed [facility] Prevnar 20 (PCV20) Prevnar 20 (PCV20) Unknown Completed [facility] Fluad (aIIV4) - SDS - 0.5mL Fluad (aIIV4) - SDS - 0.5mL Unknown Completed [facility] FLUZONE HIGH DOSE OVER 65 FLUZONE HIGH DOSE OVER 65 Unknown Completed [facility] Prevnar 20 (PCV20) Prevnar 20 (PCV20) Unknown Completed [facility] Fluad (aIIV4) - SDS - 0.5mL Fluad (aIIV4) - SDS - 0.5mL Unknown Completed [facility] FLUZONE HIGH DOSE OVER 65 FLUZONE HIGH DOSE OVER 65 Unknown Completed [facility] Prevnar 20 (PCV20) Prevnar 20 (PCV20) Unknown Completed [facility] Fluad (aIIV4) - SDS - 0.5mL Fluad (aIIV4) - SDS - 0.5mL Unknown Completed [facility] FLUZONE HIGH DOSE OVER 65 FLUZONE HIGH DOSE OVER 65 Unknown Completed [facility] Prevnar 20 (PCV20) Prevnar 20 (PCV20) Unknown Completed [facility] Fluad (aIIV4) - SDS - 0.5mL Fluad (aIIV4) - SDS - 0.5mL Unknown Completed [facility] FLUZONE HIGH DOSE OVER 65 FLUZONE HIGH DOSE OVER 65 Unknown Completed [facility] Prevnar 20 (PCV20) Prevnar 20 (PCV20) Unknown Completed [facility] Fluad (aIIV4) - SDS - 0.5mL Fluad (aIIV4) - SDS - 0.5mL Unknown Completed [facility] FLUZONE HIGH DOSE OVER 65 FLUZONE HIGH DOSE OVER 65 Unknown Completed [facility] Prevnar 20 (PCV20) Prevnar 20 (PCV20) Unknown Completed [facility] Fluad (aIIV4) - SDS - 0.5mL Fluad (aIIV4) - SDS - 0.5mL Unknown Completed [facility] FLUZONE HIGH DOSE OVER 65 FLUZONE HIGH DOSE OVER 65 Unknown Completed [facility] Prevnar 20 (PCV20) Prevnar 20 (PCV20) Unknown Completed [facility] Fluad (aIIV4) - SDS - 0.5mL Fluad (aIIV4) - SDS - 0.5mL Unknown Completed [facility] FLUZONE HIGH DOSE OVER 65 FLUZONE HIGH DOSE OVER 65 Unknown Completed [facility] Prevnar 20 (PCV20) Prevnar 20 (PCV20) Unknown Completed [facility] Fluad (aIIV4) - SDS - 0.5mL Fluad (aIIV4) - SDS - 0.5mL Unknown Completed [facility] FLUZONE HIGH DOSE OVER 65 FLUZONE HIGH DOSE OVER 65 Unknown Completed [facility] Prevnar 20 (PCV20) Prevnar 20 (PCV20) Unknown Completed [facility] Fluad (aIIV4) - SDS - 0.5mL Fluad (aIIV4) - SDS - 0.5mL Unknown Completed [facility] FLUZONE HIGH DOSE OVER 65 FLUZONE HIGH DOSE OVER 65 Unknown Completed [facility] Prevnar 20 (PCV20) Prevnar 20 (PCV20) Unknown Completed [facility] Fluad (aIIV4) - SDS - 0.5mL Fluad (aIIV4) - SDS - 0.5mL Unknown Completed [facility] FLUZONE HIGH DOSE OVER 65 FLUZONE HIGH DOSE OVER 65 Unknown Completed [facility] Prevnar 20 (PCV20) Prevnar 20 (PCV20) Unknown Completed [facility] Fluad (aIIV4) - SDS - 0.5mL Fluad (aIIV4) - SDS - 0.5mL Unknown Completed [facility] FLUZONE HIGH DOSE OVER 65 FLUZONE HIGH DOSE OVER 65 Unknown Completed [facility] Prevnar 20 (PCV20) Prevnar 20 (PCV20) Unknown Completed [facility] Fluad (aIIV4) - SDS - 0.5mL Fluad (aIIV4) - SDS - 0.5mL Unknown Completed [facility] FLUZONE HIGH DOSE OVER 65 FLUZONE HIGH DOSE OVER 65 Unknown Completed [facility] Prevnar 20 (PCV20) Prevnar 20 (PCV20) Unknown Completed [facility] Fluad (aIIV4) - SDS - 0.5mL Fluad (aIIV4) - SDS - 0.5mL Unknown Completed [facility] FLUZONE HIGH DOSE OVER 65 FLUZONE HIGH DOSE OVER 65 Unknown Completed [facility] Prevnar 20 (PCV20) Prevnar 20 (PCV20) Unknown Completed [facility] Fluad (aIIV4) - SDS - 0.5mL Fluad (aIIV4) - SDS - 0.5mL Unknown Completed [facility] FLUZONE HIGH DOSE OVER 65 FLUZONE HIGH DOSE OVER 65 Unknown Completed [facility] Influenza Virus Vaccine Unknown Completed [facility] Pneumococcal Polysaccharide, PPSV23 (PNEUMOVAX) Unknown Completed [facility] SARS-COV-2 COVID-19 MODERNA 12+ YRS VACCINE Unknown Completed [facility] SARS-COV-2 COVID-19 MODERNA 12+ YRS VACCINE Unknown Completed [facility] SARS-COV-2 COVID-19 PFIZER VACCINE Unknown Completed [facility] Influenza Virus Vaccine Unknown Completed [facility] Pneumococcal Polysaccharide, PPSV23 (PNEUMOVAX) Unknown Completed [facility] SARS-COV-2 COVID-19 MODERNA 12+ YRS VACCINE Unknown Completed [facility] SARS-COV-2 COVID-19 MODERNA 12+ YRS VACCINE Unknown Completed [facility] SARS-COV-2 COVID-19 PFIZER VACCINE Unknown Completed [facility] Influenza Virus Vaccine Unknown Completed [facility] Pneumococcal Polysaccharide, PPSV23 (PNEUMOVAX) Unknown Completed [facility] SARS-COV-2 COVID-19 MODERNA 12+ YRS VACCINE Unknown Completed [facility] SARS-COV-2 COVID-19 MODERNA 12+ YRS VACCINE Unknown Completed [facility] SARS-COV-2 COVID-19 PFIZER VACCINE Unknown Completed [facility] Influenza Virus Vaccine Unknown Completed [facility] Pneumococcal Polysaccharide, PPSV23 (PNEUMOVAX) Unknown Completed [facility] SARS-COV-2 COVID-19 MODERNA 12+ YRS VACCINE Unknown Completed [facility] SARS-COV-2 COVID-19 MODERNA 12+ YRS VACCINE Unknown Completed [facility] SARS-COV-2 COVID-19 PFIZER VACCINE Unknown Completed [facility] Influenza Virus Vaccine Unknown Completed [facility] Pneumococcal Polysaccharide, PPSV23 (PNEUMOVAX) Unknown Completed [facility] SARS-COV-2 COVID-19 MODERNA 12+ YRS VACCINE Unknown Completed [facility] SARS-COV-2 COVID-19 MODERNA 12+ YRS VACCINE Unknown Completed [facility] SARS-COV-2 COVID-19 PFIZER VACCINE Unknown Completed [facility] Influenza Virus Vaccine Unknown Completed [facility] Pneumococcal Polysaccharide, PPSV23 (PNEUMOVAX) Unknown Completed [facility] SARS-COV-2 COVID-19 MODERNA 12+ YRS VACCINE Unknown Completed [facility] SARS-COV-2 COVID-19 MODERNA 12+ YRS VACCINE Unknown Completed [facility] SARS-COV-2 COVID-19 PFIZER VACCINE Unknown Completed [facility] Influenza Virus Vaccine Unknown Completed [facility] Pneumococcal Polysaccharide, PPSV23 (PNEUMOVAX) Unknown Completed [facility] SARS-COV-2 COVID-19 MODERNA 12+ YRS VACCINE Unknown Completed [facility] SARS-COV-2 COVID-19 MODERNA 12+ YRS VACCINE Unknown Completed [facility] SARS-COV-2 COVID-19 PFIZER VACCINE Unknown Completed [facility] Influenza Virus Vaccine Unknown Completed [facility] Pneumococcal Polysaccharide, PPSV23 (PNEUMOVAX) Unknown Completed [facility] SARS-COV-2 COVID-19 MODERNA 12+ YRS VACCINE Unknown Completed [facility] SARS-COV-2 COVID-19 MODERNA 12+ YRS VACCINE Unknown Completed [facility] SARS-COV-2 COVID-19 PFIZER VACCINE Unknown Completed [facility] Influenza Virus Vaccine Unknown Completed [facility] Pneumococcal Polysaccharide, PPSV23 (PNEUMOVAX) Unknown Completed [facility] SARS-COV-2 COVID-19 MODERNA 12+ YRS VACCINE Unknown Completed [facility] SARS-COV-2 COVID-19 MODERNA 12+ YRS VACCINE Unknown Completed [facility] SARS-COV-2 COVID-19 PFIZER VACCINE Unknown Completed [facility] Influenza Virus Vaccine Unknown Completed [facility] Pneumococcal Polysaccharide, PPSV23 (PNEUMOVAX) Unknown Completed [facility] SARS-COV-2 COVID-19 MODERNA 12+ YRS VACCINE Unknown Completed [facility] SARS-COV-2 COVID-19 MODERNA 12+ YRS VACCINE Unknown Completed [facility] SARS-COV-2 COVID-19 PFIZER VACCINE Unknown Completed [facility] Influenza Virus Vaccine Unknown Completed [facility] Pneumococcal Polysaccharide, PPSV23 (PNEUMOVAX) Unknown Completed [facility] SARS-COV-2 COVID-19 MODERNA 12+ YRS VACCINE Unknown Completed [facility] SARS-COV-2 COVID-19 MODERNA 12+ YRS VACCINE Unknown Completed [facility] SARS-COV-2 COVID-19 PFIZER VACCINE Unknown Completed [facility] Influenza Virus Vaccine Unknown Completed [facility] Pneumococcal Polysaccharide, PPSV23 (PNEUMOVAX) Unknown Completed [facility] SARS-COV-2 COVID-19 MODERNA 12+ YRS VACCINE Unknown Completed [facility] SARS-COV-2 COVID-19 MODERNA 12+ YRS VACCINE Unknown Completed [facility] SARS-COV-2 COVID-19 PFIZER VACCINE Unknown Completed [facility] Influenza Virus Vaccine Unknown Completed [facility] Pneumococcal Polysaccharide, PPSV23 (PNEUMOVAX) Unknown Completed [facility] SARS-COV-2 COVID-19 MODERNA 12+ YRS VACCINE Unknown Completed [facility] SARS-COV-2 COVID-19 MODERNA 12+ YRS VACCINE Unknown Completed [facility] SARS-COV-2 COVID-19 PFIZER VACCINE Unknown Completed [facility] Influenza Virus Vaccine Unknown Completed [facility] Pneumococcal Polysaccharide, PPSV23 (PNEUMOVAX) Unknown Completed [facility] SARS-COV-2 COVID-19 MODERNA 12+ YRS VACCINE Unknown Completed [facility] SARS-COV-2 COVID-19 MODERNA 12+ YRS VACCINE Unknown Completed [facility] SARS-COV-2 COVID-19 PFIZER VACCINE Unknown Completed [facility] Vital Signs Vital Name Observation Time Observation Value Comments S ource Respiratory rate 2024-02-09 13:35:00 16 /min [facility] Heart rate 2024-02-09 13:34:00 73 /min [facility] Oxygen saturation in Arterial blood by Pulse oximetry 2024-02-09 13:34:00 97 /min [facility] Systolic blood pressure 2024-02-09 13:33:00 136 mm[Hg] [facility] Diastolic blood pressure 2024-02-09 13:33:00 79 mm[Hg] [facility] Body temperature 2024-02-09 13:08:00 36.61 Radha [facility] Body height 2024-02-09 12:50:00 165.1 cm [facility] Body weight 2024-02-09 12:50:00 80.7 kg [facility] BMI 2024-02-09 12:50:00 29.61 kg/m2 [facility] Heart rate 2024-02-09 13:31:00 80 /min [facility] Respiratory rate 2024-02-09 13:31:00 17 /min [facility] Oxygen saturation in Arterial blood by Pulse oximetry 2024-02-09 13:31:00 97 /min [facility] Systolic blood pressure 2024-02-09 13:28:00 129 mm[Hg] [facility] Diastolic blood pressure 2024-02-09 13:28:00 76 mm[Hg] [facility] Body temperature 2024-02-09 13:08:00 36.61 Radha [facility] Body height 2024-02-09 12:50:00 165.1 cm [facility] Body weight 2024-02-09 12:50:00 80.7 kg [facility] BMI 2024-02-09 12:50:00 29.61 kg/m2 [facility] height 2024-02-09 15:30:00 65 [in_i] Commo n [facility] weight 2024-02-09 15:30:00 179.8 [lb_av] Co mmon [facility] temperature 2024-02-09 15:30:00 97.8 [degF] Com [facility] bmi 2024-02-09 15:30:00 29.92 kg/m2 Comm on [facility] oximetry 2024-02-09 15:30:00 96 % Commo n [facility] respiratory rate 2024-02-09 15:30:00 16 /min Common [facility] blood pressure systolic 2024-02-09 15:30:00 138 mm[Hg] Common [facility] blood pressure diastolic 2024-02-09 15:30:00 87 mm[Hg] [facility] height 2024-02-05 08:00:00 65 [in_i] Commo n [facility] weight 2024-02-05 08:00:00 179.8 [lb_av] Co on [facility] temperature 2024-02-05 08:00:00 97.8 [degF] Com [facility] bmi 2024-02-05 08:00:00 29.92 kg/m2 Comm on [facility] oximetry 2024-02-05 08:00:00 95 % Commo n [facility] respiratory rate 2024-02-05 08:00:00 16 /min [facility] blood pressure systolic 2024-02-05 08:00:00 140 mm[Hg] Common [facility] blood pressure diastolic 2024-02-05 08:00:00 80 mm[Hg] [facility] Systolic blood pressure 2023-12-01 13:35:00 146 mm[Hg] [facility] Diastolic blood pressure 2023-12-01 13:35:00 67 mm[Hg] [facility] Heart rate 2023-12-01 13:35:00 63 /min [facility] Respiratory rate 2023-12-01 13:35:00 19 /min [facility] Oxygen saturation in Arterial blood by Pulse oximetry 2023-12-01 13:35:00 97 /min [facility] Body temperature 2023-12-01 13:05:00 36.28 [facility] Body weight 2023-11-27 18:00:00 81.647 kg [facility] BMI 2023-11-27 18:00:00 29.95 kg/m2 [facility] Systolic blood pressure 2023-12-01 13:30:00 132 mm[Hg] [facility] Diastolic blood pressure 2023-12-01 13:30:00 66 mm[Hg] [facility] [facility] Heart rate 2023-12-01 13:30:00 61 /min [facility] Respiratory rate 2023-12-01 13:30:00 19 /min [facility] Oxygen saturation in Arterial blood by Pulse oximetry 2023-12-01 13:30:00 96 /min [facility] Body temperature 2023-12-01 13:05:00 36.28 [facility] Body weight 2023-11-27 18:00:00 81.647 kg [facility] BMI 2023-11-27 18:00:00 29.95 kg/m2 [facility] height 2023-11-26 14:10:00 65 [in_i] Commo n [facility] weight 2023-11-26 14:10:00 178.0 [lb_av] Co mmon [facility] temperature 2023-11-26 14:10:00 97.9 [degF] Com mon [facility] bmi 2023-11-26 14:10:00 29.62 kg/m2 Comm on [facility] oximetry 2023-11-26 14:10:00 96 % Commo n [facility] respiratory rate 2023-11-26 14:10:00 17 /min Common [facility] blood pressure systolic 2023-11-26 14:10:00 130 mm[Hg] [facility] blood pressure diastolic 2023-11-26 14:10:00 73 mm[Hg] Common [facility] height 2023-11-26 14:10:00 65 [in_i] Commo n [facility] weight 2023-11-26 14:10:00 178.0 [lb_av] Co [facility] temperature 2023-11-26 14:10:00 97.9 [degF] Com mon [facility] bmi 2023-11-26 14:10:00 29.62 kg/m2 Comm on [facility] oximetry 2023-11-26 14:10:00 96 % Commo n [facility] respiratory rate 2023-11-26 14:10:00 17 /min [facility] blood pressure systolic 2023-11-26 14:10:00 130 mm[Hg] [facility] blood pressure diastolic 2023-11-26 14:10:00 73 mm[Hg] [facility] height 2023-11-07 10:40:00 65 [in_i] Commo n [facility] weight 2023-11-07 10:40:00 171.4 [lb_av] Co mmon [facility] bmi 2023-11-07 10:40:00 28.52 kg/m2 Comm on [facility] Systolic blood pressure 2023-10-20 14:35:00 125 mm[Hg] [facility] Diastolic blood pressure 2023-10-20 14:35:00 71 mm[Hg] [facility] Heart rate 2023-10-20 14:35:00 64 /min [facility] Body temperature 2023-10-20 14:35:00 36.33 Radha [facility] Respiratory rate 2023-10-20 14:35:00 21 /min [facility] Oxygen saturation in Arterial blood by Pulse oximetry 2023-10-20 14:35:00 95 /min [facility] Body height 2023-10-13 16:00:00 165.1 cm [facility] Body weight 2023-10-13 16:00:00 78.926 kg Univ [facility] BMI 2023-10-13 16:00:00 28.96 kg/m2 Univ [facility] Systolic blood pressure 2023-10-20 14:10:00 127 mm[Hg] [facility] Diastolic blood pressure 2023-10-20 14:10:00 79 mm[Hg] [facility] Heart rate 2023-10-20 14:10:00 63 /min [facility] Respiratory rate 2023-10-20 14:10:00 17 /min [facility] Oxygen saturation in Arterial blood by Pulse oximetry 2023-10-20 14:10:00 94 /min [facility] Body temperature 2023-10-20 14:04:00 36.33 Radha [facility] Body height 2023-10-13 16:00:00 165.1 cm Univ [facility] Body weight 2023-10-13 16:00:00 78.926 kg [facility] BMI 2023-10-13 16:00:00 28.96 kg/m2 [facility] Systolic blood pressure 2023-09-22 13:13:00 138 mm[Hg] [facility] Diastolic blood pressure 2023-09-22 13:13:00 66 mm[Hg] [facility] Heart rate 2023-09-22 13:13:00 60 /min [facility] Respiratory rate 2023-09-22 13:13:00 20 /min [facility] Oxygen saturation in Arterial blood by Pulse oximetry 2023-09-22 13:13:00 97 /min [facility] Body temperature 2023-09-22 12:43:00 36.39 Radha [facility] Body height 2023-09-16 19:00:00 165.1 cm Univ [facility] Body weight 2023-09-16 19:00:00 78.926 kg Univ [facility] BMI 2023-09-16 19:00:00 28.96 kg/m2 [facility] Heart rate 2023-09-22 12:48:00 65 /min [facility] Respiratory rate 2023-09-22 12:48:00 19 /min [facility] Oxygen saturation in Arterial blood by Pulse oximetry 2023-09-22 12:48:00 95 /min [facility] Systolic blood pressure 2023-09-22 12:47:00 131 mm[Hg] [facility] Diastolic blood pressure 2023-09-22 12:47:00 63 mm[Hg] [facility] Body temperature 2023-09-22 12:43:00 36.39 Radha [facility] Body height 2023-09-16 19:00:00 165.1 cm [facility] Body weight 2023-09-16 19:00:00 78.926 kg [facility] BMI 2023-09-16 19:00:00 28.96 kg/m2 [facility] height 2023-07-30 15:20:00 65 [in_i] Commo n [facility] weight 2023-07-30 15:20:00 171.4 [lb_av] Co mmon [facility] temperature 2023-07-30 15:20:00 97.3 [degF] Com mon [facility] bmi 2023-07-30 15:20:00 28.52 kg/m2 Comm on [facility] oximetry 2023-07-30 15:20:00 99 % Commo n [facility] blood pressure systolic 2023-07-30 15:20:00 126 mm[Hg] Common [facility] blood pressure diastolic 2023-07-30 15:20:00 78 mm[Hg] Common [facility] Heart rate 2023-07-21 14:31:00 63 /min [facility] Respiratory rate 2023-07-21 14:31:00 23 /min [facility] Oxygen saturation in Arterial blood by Pulse oximetry 2023-07-21 14:31:00 94 /min [facility] Systolic blood pressure 2023-07-21 14:30:00 122 mm[Hg] [facility] Diastolic blood pressure 2023-07-21 14:30:00 67 mm[Hg] [facility] Body temperature 2023-07-21 14:00:00 36.44 Radha [facility] Body height 2023-07-16 15:00:00 165.1 cm [facility] Body weight 2023-07-16 15:00:00 79.379 kg [facility] BMI 2023-07-16 15:00:00 29.12 kg/m2 [facility] Heart rate 2023-07-21 14:31:00 63 /min [facility] Respiratory rate 2023-07-21 14:31:00 23 /min [facility] Oxygen saturation in Arterial blood by Pulse oximetry 2023-07-21 14:31:00 94 /min [facility] Systolic blood pressure 2023-07-21 14:30:00 122 mm[Hg] [facility] Diastolic blood pressure 2023-07-21 14:30:00 67 mm[Hg] [facility] Body temperature 2023-07-21 14:00:00 36.44 Radha [facility] Body height 2023-07-16 15:00:00 165.1 cm [facility] Body weight 2023-07-16 15:00:00 79.379 kg [facility] BMI 2023-07-16 15:00:00 29.12 kg/m2 [facility] height 2023-04-29 15:00:00 65 [in_i] Commo n [facility] weight 2023-04-29 15:00:00 176.8 [lb_av] Co mmon [facility] temperature 2023-04-29 15:00:00 97.8 [degF] Com mon [facility] bmi 2023-04-29 15:00:00 29.42 kg/m2 Comm on [facility] oximetry 2023-04-29 15:00:00 98 % Commo n [facility] respiratory rate 2023-04-29 15:00:00 16 /min Common [facility] blood pressure systolic 2023-04-29 15:00:00 122 mm[Hg] Common [facility] blood pressure diastolic 2023-04-29 15:00:00 66 mm[Hg] [facility] Systolic blood pressure 2023-02-21 17:59:00 113 mm[Hg] [facility] Diastolic blood pressure 2023-02-21 17:59:00 74 mm[Hg] [facility] Heart rate 2023-02-21 17:59:00 64 /min [facility] Respiratory rate 2023-02-21 17:59:00 18 /min [facility] Body height 2023-02-21 17:59:00 165.1 cm [facility] Body weight 2023-02-21 17:59:00 81.647 kg [facility] BMI 2023-02-21 17:59:00 29.95 kg/m2 [facility] height 2023-01-27 14:30:00 65 [in_i] Commo n [facility] weight 2023-01-27 14:30:00 182.6 [lb_av] Co mmon [facility] temperature 2023-01-27 14:30:00 97.2 [degF] Com mon [facility] bmi 2023-01-27 14:30:00 30.38 kg/m2 Comm on [facility] oximetry 2023-01-27 14:30:00 97 % Commo n [facility] respiratory rate 2023-01-27 14:30:00 17 /min Common [facility] blood pressure systolic 2023-01-27 14:30:00 119 mm[Hg] Common [facility] blood pressure diastolic 2023-01-27 14:30:00 67 mm[Hg] Common [facility] height 2023-01-08 14:00:00 65 [in_i] Commo n [facility] weight 2023-01-08 14:00:00 182.8 [lb_av] Co mmon [facility] temperature 2023-01-08 14:00:00 98.1 [degF] Com mon [facility] bmi 2023-01-08 14:00:00 30.42 kg/m2 Comm on [facility] oximetry 2023-01-08 14:00:00 98 % Commo n [facility] respiratory rate 2023-01-08 14:00:00 17 /min Common [facility] blood pressure systolic 2023-01-08 14:00:00 132 mm[Hg] Common [facility] blood pressure diastolic 2023-01-08 14:00:00 71 mm[Hg] [facility] Systolic blood pressure 2022-12-30 15:13:00 103 mm[Hg] [facility] Diastolic blood pressure 2022-12-30 15:13:00 63 mm[Hg] [facility] Body temperature 2022-12-30 15:13:00 36.56 Radha [facility] Respiratory rate 2022-12-30 15:13:00 19 /min [facility] Oxygen saturation in Arterial blood by Pulse oximetry 2022-12-30 15:13:00 97 /min [facility] Heart rate 2022-12-30 15:01:00 64 /min [facility] Body height 2022-12-17 19:17:00 165.1 cm [facility] Body weight 2022-12-17 19:17:00 83.9 kg [facility] BMI 2022-12-17 19:17:00 30.78 kg/m2 [facility] Systolic blood pressure 2022-12-30 15:13:00 103 mm[Hg] [facility] Diastolic blood pressure 2022-12-30 15:13:00 63 mm[Hg] [facility] Body temperature 2022-12-30 15:13:00 36.56 Radha [facility] Respiratory rate 2022-12-30 15:13:00 19 /min [facility] Oxygen saturation in Arterial blood by Pulse oximetry 2022-12-30 15:13:00 97 /min [facility] Heart rate 2022-12-30 15:01:00 64 [facility] height 2022-12-17 19:17:00 165.1 cm [facility] 2022-12-17 19:17:00 83.9 kg [facility] BMI 2022-12-17 19:17:00 30.78 kg/m2 [facility] height 2022-12-16 15:30:00 65 [in_i] Commo n [facility] weight 2022-12-16 15:30:00 183 [lb_av] Comm on [facility] temperature 2022-12-16 15:30:00 98 [degF] Comm on [facility] bmi 2022-12-16 15:30:00 30.45 kg/m2 Comm on [facility] oximetry 2022-12-16 15:30:00 97 % Commo n [facility] respiratory rate 2022-12-16 15:30:00 18 /min [facility] blood pressure systolic 2022-12-16 15:30:00 134 mm[Hg] [facility] blood pressure diastolic 2022-12-16 15:30:00 66 mm[Hg] [facility] height 2022-11-06 14:20:00 65 [in_i] Commo n [facility] weight 2022-11-06 14:20:00 181.4 [lb_av] Co mmon [facility] temperature 2022-11-06 14:20:00 97.3 [degF] Com mon [facility] bmi 2022-11-06 14:20:00 30.18 kg/m2 Comm on [facility] oximetry 2022-11-06 14:20:00 98 % [facility] respiratory rate 2022-11-06 14:20:00 18 /min [facility] blood pressure systolic 2022-11-06 14:20:00 130 mm[Hg] [facility] blood pressure diastolic 2022-11-06 14:20:00 71 mm[Hg] [facility] Systolic blood pressure 2022-10-28 13:55:00 115 mm[Hg] [facility] Diastolic blood pressure 2022-10-28 13:55:00 60 mm[Hg] [facility] Heart rate 2022-10-28 13:55:00 59 /min [facility] Respiratory rate 2022-10-28 13:55:00 19 /min [facility] Oxygen saturation in Arterial blood by Pulse oximetry 2022-10-28 13:55:00 97 /min [facility] Body temperature 2022-10-28 12:15:00 36.39 Radha [facility] Body height 2022-10-22 15:00:00 165.1 cm [facility] Body weight 2022-10-22 15:00:00 83.915 kg [facility] BMI 2022-10-22 15:00:00 30.79 kg/m2 [facility] Systolic blood pressure 2022-10-28 13:45:00 117 mm[Hg] [facility] Diastolic blood pressure 2022-10-28 13:45:00 68 mm[Hg] [facility] Heart rate 2022-10-28 13:45:00 60 /min [facility] Respiratory rate 2022-10-28 13:45:00 19 /min [facility] Oxygen saturation in Arterial blood by Pulse oximetry 2022-10-28 13:45:00 96 /min [facility] Body temperature 2022-10-28 12:15:00 36.39 Radha [facility] Body height 2022-10-22 15:00:00 165.1 cm [facility] Body weight 2022-10-22 15:00:00 83.915 kg [facility] BMI 2022-10-22 15:00:00 30.79 kg/m2 [facility] height 2022-10-11 14:00:00 65 [in_i] Commo n [facility] weight 2022-10-11 14:00:00 182.6 [lb_av] Co mmon [facility] temperature 2022-10-11 14:00:00 97.3 [degF] Com mon [facility] bmi 2022-10-11 14:00:00 30.38 kg/m2 Comm on [facility] oximetry 2022-10-11 14:00:00 97 % Commo n [facility] respiratory rate 2022-10-11 14:00:00 16 /min [facility] blood pressure systolic 2022-10-11 14:00:00 105 mm[Hg] [facility] blood pressure diastolic 2022-10-11 14:00:00 65 mm[Hg] Common [facility] height 2022-09-17 08:20:00 65 [in_i] Commo n [facility] weight 2022-09-17 08:20:00 179.6 [lb_av] Co mmon [facility] temperature 2022-09-17 08:20:00 97.2 [degF] Com mon [facility] bmi 2022-09-17 08:20:00 29.88 kg/m2 Comm on [facility] oximetry 2022-09-17 08:20:00 98 % Commo n [facility] respiratory rate 2022-09-17 08:20:00 16 /min Common [facility] blood pressure systolic 2022-09-17 08:20:00 129 mm[Hg] [facility] blood pressure diastolic 2022-09-17 08:20:00 68 mm[Hg] Common [facility] height 2022-09-10 08:00:00 65 [in_i] Commo n [facility] weight 2022-09-10 08:00:00 183.2 [lb_av] Co mmon [facility] temperature 2022-09-10 08:00:00 97.5 [degF] Com mon [facility] bmi 2022-09-10 08:00:00 30.48 kg/m2 Comm on [facility] oximetry 2022-09-10 08:00:00 97 % Commo n [facility] respiratory rate 2022-09-10 08:00:00 17 /min Common [facility] blood pressure systolic 2022-09-10 08:00:00 125 mm[Hg] [facility] blood pressure diastolic 2022-09-10 08:00:00 71 mm[Hg] [facility] Heart rate 2022-08-19 14:20:00 68 /[facility] Respiratory rate 2022-08-19 14:20:00 30 /min [facility] Oxygen saturation in Arterial blood by Pulse oximetry 2022-08-19 14:20:00 95 /min [facility] Systolic blood pressure 2022-08-19 14:19:00 117 mm[Hg] [facility] Diastolic blood pressure 2022-08-19 14:19:00 64 mm[Hg] [facility] Body temperature 2022-08-19 13:51:00 37.06 [facility] Body height 2022-08-19 12:49:00 165.1 cm [facility] Body weight 2022-08-19 12:49:00 82.6 kg [facility] BMI 2022-08-19 12:49:00 30.30 kg/m2 [facility] Heart rate 2022-08-19 12:57:00 64 /min [facility] Body temperature 2022-08-19 12:57:00 36.83 [facility] Respiratory rate 2022-08-19 12:57:00 18 /min [facility] Oxygen saturation in Arterial blood by Pulse oximetry 2022-08-19 12:57:00 99 /min [facility] Systolic blood pressure 2022-08-19 12:56:00 129 mm[Hg] [facility] Diastolic blood pressure 2022-08-19 12:56:00 62 mm[Hg] [facility] Body height 2022-08-19 12:49:00 165.1 cm [facility] Body weight 2022-08-19 12:49:00 82.6 kg [facility] BMI 2022-08-19 12:49:00 30.30 kg/m2 [facility] height 2022-08-08 15:20:00 65 [in_i] Commo n [facility] weight 2022-08-08 15:20:00 182.8 [lb_av] Co [facility] temperature 2022-08-08 15:20:00 96.7 [degF] Com [facility] bmi 2022-08-08 15:20:00 30.42 kg/m2 Comm on [facility] oximetry 2022-08-08 15:20:00 97 % Commo n [facility] respiratory rate 2022-08-08 15:20:00 17 /min [facility] blood pressure systolic 2022-08-08 15:20:00 128 mm[Hg] [facility] blood pressure diastolic 2022-08-08 15:20:00 73 mm[Hg] [facility] height 2022-08-08 15:30:00 65 [in_i] Commo n [facility] weight 2022-08-08 15:30:00 182.8 [lb_av] Co [facility] temperature 2022-08-08 15:30:00 96.7 [degF] Com [facility] bmi 2022-08-08 15:30:00 30.42 kg/m2 Comm on [facility] oximetry 2022-08-08 15:30:00 97 % Commo n [facility] respiratory rate 2022-08-08 15:30:00 17 /min Common [facility] blood pressure systolic 2022-08-08 15:30:00 128 mm[Hg] Common [facility] blood pressure diastolic 2022-08-08 15:30:00 73 mm[Hg] [facility] Systolic blood pressure 2022-07-17 19:15:00 126 mm[Hg] [facility] Diastolic blood pressure 2022-07-17 19:15:00 77 mm[Hg] [facility] Heart rate 2022-07-17 19:15:00 67 /min [facility] Body temperature 2022-07-17 19:15:00 36.78 Radha [facility] Respiratory rate 2022-07-17 19:15:00 18 /min [facility] Body height 2022-07-17 19:15:00 165.1 cm [facility] Body weight 2022-07-17 19:15:00 83.008 kg [facility] BMI 2022-07-17 19:15:00 30.45 kg/m2 [facility] height 2022-07-01 11:20:00 65 [in_i] Commo n [facility] weight 2022-07-01 11:20:00 178 [lb_av] Comm on [facility] bmi 2022-07-01 11:20:00 29.62 kg/m2 Comm on [facility] height 2022-06-05 10:00:00 65 [in_i] Commo n [facility] weight 2022-06-05 10:00:00 185.2 [lb_av] Co mmon [facility] temperature 2022-06-05 10:00:00 97.9 [degF] Com mon [facility] bmi 2022-06-05 10:00:00 30.82 kg/m2 Comm on [facility] oximetry 2022-06-05 10:00:00 97 % Commo n [facility] respiratory rate 2022-06-05 10:00:00 18 /min Common [facility] blood pressure systolic 2022-06-05 10:00:00 122 mm[Hg] Common [facility] blood pressure diastolic 2022-06-05 10:00:00 67 mm[Hg] [facility] height 2022-04-29 14:50:00 65 [in_i] Commo n [facility] weight 2022-04-29 14:50:00 183.2 [lb_av] Co mmon [facility] temperature 2022-04-29 14:50:00 96.5 [degF] Com [facility] bmi 2022-04-29 14:50:00 30.48 kg/m2 Comm on [facility] oximetry 2022-04-29 14:50:00 97 % Commo n [facility] respiratory rate 2022-04-29 14:50:00 17 /min Common [facility] blood pressure systolic 2022-04-29 14:50:00 127 mm[Hg] Common [facility] blood pressure diastolic 2022-04-29 14:50:00 67 mm[Hg] Common [facility] height 2022-03-27 14:00:00 65 [in_i] Commo n [facility] weight 2022-03-27 14:00:00 180.6 [lb_av] Co mmon [facility] temperature 2022-03-27 14:00:00 97.7 [degF] Com [facility] bmi 2022-03-27 14:00:00 30.05 kg/m2 Comm on [facility] oximetry 2022-03-27 14:00:00 97 % Commo n [facility] respiratory rate 2022-03-27 14:00:00 17 /min [facility] blood pressure systolic 2022-03-27 14:00:00 132 mm[Hg] Common [facility] blood pressure diastolic 2022-03-27 14:00:00 69 mm[Hg] [facility] height 2022-02-12 14:00:00 65 [in_i] Commo n [facility] weight 2022-02-12 14:00:00 180.4 [lb_av] Co mmon [facility] temperature 2022-02-12 14:00:00 97.3 [degF] Com mon [facility] bmi 2022-02-12 14:00:00 30.02 kg/m2 Comm on [facility] oximetry 2022-02-12 14:00:00 97 % Commo n [facility] respiratory rate 2022-02-12 14:00:00 17 /min [facility] blood pressure systolic 2022-02-12 14:00:00 138 mm[Hg] [facility] blood pressure diastolic 2022-02-12 14:00:00 67 mm[Hg] [facility] Heart rate 2022-02-04 14:03:00 63 /min [facility] Respiratory rate 2022-02-04 14:03:00 16 /min [facility] Oxygen saturation in Arterial blood by Pulse oximetry 2022-02-04 14:03:00 97 /min [facility] Systolic blood pressure 2022-02-04 13:54:00 114 mm[Hg] [facility] Diastolic blood pressure 2022-02-04 13:54:00 61 mm[Hg] [facility] Body temperature 2022-02-04 13:38:00 36.83 Radha [facility] Body height 2022-02-04 12:07:00 165.1 cm [facility] Body weight 2022-02-01 17:00:00 82.555 kg [facility] BMI 2022-02-01 17:00:00 30.29 kg/m2 [facility] Systolic blood pressure 2022-02-04 13:48:00 112 mm[Hg] [facility] Diastolic blood pressure 2022-02-04 13:48:00 60 mm[Hg] [facility] Heart rate 2022-02-04 13:48:00 57 /min [facility] Respiratory rate 2022-02-04 13:48:00 16 /min [facility] Oxygen saturation in Arterial blood by Pulse oximetry 2022-02-04 13:48:00 99 /min [facility] Body temperature 2022-02-04 13:38:00 36.83 Radha [facility] Body height 2022-02-04 12:07:00 165.1 cm [facility] Body weight 2022-02-01 17:00:00 82.555 kg [facility] BMI 2022-02-01 17:00:00 30.29 kg/m2 [facility] height 2022-01-28 15:40:00 65 [in_i] Commo n [facility] weight 2022-01-28 15:40:00 181.5 [lb_av] Co mmon [facility] temperature 2022-01-28 15:40:00 97.2 [degF] Com mon [facility] bmi 2022-01-28 15:40:00 30.2 kg/m2 Commo n [facility] oximetry 2022-01-28 15:40:00 98 % Commo n [facility] respiratory rate 2022-01-28 15:40:00 17 /min Common [facility] blood pressure systolic 2022-01-28 15:40:00 125 mm[Hg] Common [facility] blood pressure diastolic 2022-01-28 15:40:00 72 mm[Hg] Common [facility] Heart rate 2022-01-21 12:57:00 65 /min [facility] Respiratory rate 2022-01-21 12:57:00 29 /min [facility] Oxygen saturation in Arterial blood by Pulse oximetry 2022-01-21 12:57:00 98 /min [facility] Systolic blood pressure 2022-01-21 12:55:00 105 mm[Hg] [facility] Diastolic blood pressure 2022-01-21 12:55:00 74 mm[Hg] [facility] Body temperature 2022-01-21 12:36:00 36.28 [facility] Body height 2022-01-21 11:30:00 165.1 cm [facility] Body weight 2022-01-16 15:00:00 83.008 kg [facility] BMI 2022-01-16 15:00:00 30.45 kg/m2 [facility] Systolic blood pressure 2022-01-21 12:45:00 110 mm[Hg] [facility] Diastolic blood pressure 2022-01-21 12:45:00 65 mm[Hg] [facility] Heart rate 2022-01-21 12:45:00 64 /min [facility] Respiratory rate 2022-01-21 12:45:00 29 /min [facility] Oxygen saturation in Arterial blood by Pulse oximetry 2022-01-21 12:45:00 97 /min [facility] Body temperature 2022-01-21 12:36:00 36.28 [facility] Body height 2022-01-21 11:30:00 165.1 cm [facility] Body weight 2022-01-16 15:00:00 83.008 kg [facility] BMI 2022-01-16 15:00:00 30.45 kg/m2 [facility] height 2022-01-17 13:40:00 65 [in_i] [facility]mo n [facility] weight 2022-01-17 13:40:00 186.1 [lb_av] Co mmon [facility] temperature 2022-01-17 13:40:00 97.4 [degF] Com mon [facility] bmi 2022-01-17 13:40:00 30.97 kg/m2 Comm on [facility] oximetry 2022-01-17 13:40:00 96 % Commo n [facility] respiratory rate 2022-01-17 13:40:00 17 /min Common [facility] blood pressure systolic 2022-01-17 13:40:00 125 mm[Hg] [facility] blood pressure diastolic 2022-01-17 13:40:00 64 mm[Hg] [facility] Systolic blood pressure 2022-01-07 13:50:00 118 mm[Hg] [facility] Diastolic blood pressure 2022-01-07 13:50:00 67 mm[Hg] [facility] Heart rate 2022-01-07 13:50:00 70 /min [facility] Respiratory rate 2022-01-07 13:50:00 17 /min [facility] Oxygen saturation in Arterial blood by Pulse oximetry 2022-01-07 13:50:00 99 /min [facility] Body temperature 2022-01-07 13:30:00 36.17 Radha [facility] Body height 2021-12-31 13:37:00 165.1 cm [facility] Body weight 2021-12-31 13:37:00 83.3 kg [facility] BMI 2021-12-31 13:37:00 30.56 kg/m2 [facility] Systolic blood pressure 2022-01-07 13:45:00 103 mm[Hg] [facility] Diastolic blood pressure 2022-01-07 13:45:00 57 mm[Hg] [facility] Heart rate 2022-01-07 13:45:00 64 /min [facility] Respiratory rate 2022-01-07 13:45:00 17 /min [facility] Oxygen saturation in Arterial blood by Pulse oximetry 2022-01-07 13:45:00 97 /min [facility] Body temperature 2022-01-07 13:30:00 36.17 Radha [facility] Body height 2021-12-31 13:37:00 165.1 cm [facility] Body weight 2021-12-31 13:37:00 83.3 kg [facility] BMI 2021-12-31 13:37:00 30.56 kg/m2 [facility] height 2022-01-03 10:00:00 65 [in_i] [facility]mo n [facility] weight 2022-01-03 10:00:00 185 [lb_av] Comm on [facility] temperature 2022-01-03 10:00:00 98 [degF] Comm on [facility] bmi 2022-01-03 10:00:00 30.78 kg/m2 Comm on [facility] height 2021-12-10 10:40:00 65 [in_i] [facility]mo [facility] weight 2021-12-10 10:40:00 186.0 [lb_av] Co [facility] temperature 2021-12-10 10:40:00 98.1 [degF] Com mon [facility] bmi 2021-12-10 10:40:00 30.95 kg/m2 Comm on [facility] oximetry 2021-12-10 10:40:00 87 % [facility] respiratory rate 2021-12-10 10:40:00 17 /min [facility] blood pressure systolic 2021-12-10 10:40:00 127 mm[Hg] Common [facility] blood pressure diastolic 2021-12-10 10:40:00 65 mm[Hg] Common [facility] height 2021-11-22 09:40:00 65 [in_i] [facility]mo n [facility] weight 2021-11-22 09:40:00 185.1 [lb_av] [facility] temperature 2021-11-22 09:40:00 97.7 [degF] Com mon [facility] bmi 2021-11-22 09:40:00 30.8 kg/m2 [facility] oximetry 2021-11-22 09:40:00 96 % [facility] respiratory rate 2021-11-22 09:40:00 17 /min [facility] blood pressure systolic 2021-11-22 09:40:00 126 mm[Hg] [facility] blood pressure diastolic 2021-11-22 09:40:00 70 mm[Hg] [facility] height 2021-10-30 14:30:00 65 [in_i] [facility]mo n [facility] weight 2021-10-30 14:30:00 191.1 [lb_av] Co m[facility] temperature 2021-10-30 14:30:00 98.1 [degF] Com mon [facility] bmi 2021-10-30 14:30:00 31.8 kg/m2 [facility] oximetry 2021-10-30 14:30:00 96 % [facility] respiratory rate 2021-10-30 14:30:00 17 /min [facility] blood pressure systolic 2021-10-30 14:30:00 127 mm[Hg] [facility] blood pressure diastolic 2021-10-30 14:30:00 60 mm[Hg] [facility] height 2021-10-17 14:15:00 65 [in_i] [facility]mo n [facility] weight 2021-10-17 14:15:00 185 [lb_av] Comm on [facility] temperature 2021-10-17 14:15:00 98.4 [degF] Com mon [facility] bmi 2021-10-17 14:15:00 30.78 kg/m2 Comm on [facility] oximetry 2021-10-17 14:15:00 96 % [facility]mo [facility] respiratory rate 2021-10-17 14:15:00 16 /min Common [facility] blood pressure systolic 2021-10-17 14:15:00 137 mm[Hg] [facility] blood pressure diastolic 2021-10-17 14:15:00 67 mm[Hg] [facility] height 2021-10-17 14:15:00 65 [in_i] Commo n [facility] weight 2021-10-17 14:15:00 185 [lb_av] Comm on [facility] temperature 2021-10-17 14:15:00 98.4 [degF] Com mon [facility] bmi 2021-10-17 14:15:00 30.78 kg/m2 Comm on [facility] oximetry 2021-10-17 14:15:00 96 % [facility]mo [facility] respiratory rate 2021-10-17 14:15:00 16 /min [facility] blood pressure systolic 2021-10-17 14:15:00 137 mm[Hg] [facility] blood pressure diastolic 2021-10-17 14:15:00 67 mm[Hg] [facility] height 2021-09-19 10:15:00 65 [in_i] Commo n [facility] weight 2021-09-19 10:15:00 186.6 [lb_av] Co [facility] temperature 2021-09-19 10:15:00 97.3 [degF] Com mon [facility] bmi 2021-09-19 10:15:00 31.05 kg/m2 Comm on [facility] oximetry 2021-09-19 10:15:00 92 % [facility]mo [facility] respiratory rate 2021-09-19 10:15:00 16 /min [facility] blood pressure systolic 2021-09-19 10:15:00 136 mm[Hg] Common [facility] blood pressure diastolic 2021-09-19 10:15:00 72 mm[Hg] [facility] height 2021-09-19 10:15:00 65 [in_i] Commo n [facility] weight 2021-09-19 10:15:00 186.6 [lb_av] Co [facility] temperature 2021-09-19 10:15:00 97.3 [degF] Com mon [facility] bmi 2021-09-19 10:15:00 31.05 kg/m2 Comm on [facility] oximetry 2021-09-19 10:15:00 92 % Commo [facility] respiratory rate 2021-09-19 10:15:00 16 /min [facility] blood pressure systolic 2021-09-19 10:15:00 136 mm[Hg] [facility] blood pressure diastolic 2021-09-19 10:15:00 72 mm[Hg] Common [facility] height 2021-08-27 16:00:00 65 [in_i] Commo n [facility] weight 2021-08-27 16:00:00 183.4 [lb_av] Co [facility] bmi 2021-08-27 16:00:00 30.52 kg/m2 Comm on [facility] height 2021-08-09 17:00:00 65 [in_i] Commo n [facility] weight 2021-08-09 17:00:00 183.4 [lb_av] Co [facility] temperature 2021-08-09 17:00:00 98.6 [degF] Com mon [facility] bmi 2021-08-09 17:00:00 30.52 kg/m2 Comm on [facility] oximetry 2021-08-09 17:00:00 100 % Commo n [facility] respiratory rate 2021-08-09 17:00:00 18 /min Common [facility] blood pressure systolic 2021-08-09 17:00:00 130 mm[Hg] Common [facility] blood pressure diastolic 2021-08-09 17:00:00 62 mm[Hg] [facility] height 2021-08-09 17:00:00 65 [in_i] Commo n [facility] weight 2021-08-09 17:00:00 183.4 [lb_av] Co mmon [facility] temperature 2021-08-09 17:00:00 98.6 [degF] Com mon [facility] bmi 2021-08-09 17:00:00 30.52 kg/m2 Comm on [facility] oximetry 2021-08-09 17:00:00 100 % Commo n [facility] respiratory rate 2021-08-09 17:00:00 18 /min [facility] blood pressure systolic 2021-08-09 17:00:00 130 mm[Hg] Common [facility] blood pressure diastolic 2021-08-09 17:00:00 62 mm[Hg] [facility] Systolic blood pressure 2021-07-24 20:23:00 130 mm[Hg] [facility] Diastolic blood pressure 2021-07-24 20:23:00 80 mm[Hg] [facility] Heart rate 2021-07-24 20:23:00 67 [facility] 2021-07-24 20:23:00 36.67 Radha [facility] Body height 2021-07-24 20:23:00 165.1 cm [facility] Body weight 2021-07-24 20:23:00 83.326 kg [facility] BMI 2021-07-24 20:23:00 30.57 kg/m2 [facility] height 2021-06-27 13:30:00 65 [in_i] Commo n [facility] weight 2021-06-27 13:30:00 180 [lb_av] Comm on [facility] temperature 2021-06-27 13:30:00 98 [degF] Comm on [facility] bmi 2021-06-27 13:30:00 29.95 kg/m2 Comm on [facility] height 2021-05-24 11:20:00 65 [in_i] Commo n [facility] weight 2021-05-24 11:20:00 178 [lb_av] Comm on [facility] temperature 2021-05-24 11:20:00 98 [degF] Comm on [facility] bmi 2021-05-24 11:20:00 29.62 kg/m2 Comm on [facility] blood pressure systolic 2021-05-24 11:20:00 135 mm[Hg] Common [facility] blood pressure diastolic 2021-05-24 11:20:00 86 mm[Hg] [facility] height 2021-04-23 13:40:00 65 [in_i] Commo n [facility] weight 2021-04-23 13:40:00 178 [lb_av] Comm on [facility] temperature 2021-04-23 13:40:00 97.7 [degF] Com mon [facility] bmi 2021-04-23 13:40:00 29.62 kg/m2 Comm on [facility] oximetry 2021-04-23 13:40:00 97 % Commo n [facility] respiratory rate 2021-04-23 13:40:00 18 /min [facility] blood pressure systolic 2021-04-23 13:40:00 130 mm[Hg] Common [facility] blood pressure diastolic 2021-04-23 13:40:00 72 mm[Hg] [facility] height 2021-03-23 09:30:00 65 [in_i] Commo n [facility] weight 2021-03-23 09:30:00 178 [lb_av] Comm on [facility] bmi 2021-03-23 09:30:00 29.62 kg/m2 Comm on [facility] height 2021-02-22 15:20:00 65 [in_i] Commo n [facility] weight 2021-02-22 15:20:00 178 [lb_av] Comm on [facility] temperature 2021-02-22 15:20:00 98 [degF] Comm on [facility] bmi 2021-02-22 15:20:00 29.62 kg/m2 Comm on [facility] blood pressure systolic 2021-02-22 15:20:00 134 mm[Hg] Common [facility] blood pressure diastolic 2021-02-22 15:20:00 75 mm[Hg] Common [facility] height 2021-02-15 09:00:00 65 [in_i] Commo n [facility] weight 2021-02-15 09:00:00 178 [lb_av] Comm on [facility] temperature 2021-02-15 09:00:00 97.5 [degF] Com mon [facility] bmi 2021-02-15 09:00:00 29.62 kg/m2 Comm on [facility] height 2021-01-25 09:40:00 65 [in_i] Commo n [facility] weight 2021-01-25 09:40:00 178 [lb_av] Comm on [facility] temperature 2021-01-25 09:40:00 98 [degF] Comm on [facility] bmi 2021-01-25 09:40:00 29.62 kg/m2 Comm on [facility] blood pressure systolic 2021-01-25 09:40:00 132 mm[Hg] [facility] blood pressure diastolic 2021-01-25 09:40:00 76 mm[Hg] [facility] height 2020-12-26 13:20:00 65 [in_i] Commo n [facility] weight 2020-12-26 13:20:00 182.5 [lb_av] Co [facility] temperature 2020-12-26 13:20:00 98.5 [degF] Com [facility] bmi 2020-12-26 13:20:00 30.37 kg/m2 Comm on [facility] oximetry 2020-12-26 13:20:00 96 % Commo n [facility] blood pressure systolic 2020-12-26 13:20:00 140 mm[Hg] Common [facility] blood pressure diastolic 2020-12-26 13:20:00 65 mm[Hg] Common [facility] height 2020-12-26 13:20:00 65 [in_i] Commo n [facility] weight 2020-12-26 13:20:00 182.5 [lb_av] Co [facility] temperature 2020-12-26 13:20:00 98.5 [degF] Com [facility] bmi 2020-12-26 13:20:00 30.37 kg/m2 Comm on [facility] oximetry 2020-12-26 13:20:00 96 % Commo n [facility] blood pressure systolic 2020-12-26 13:20:00 140 mm[Hg] [facility] blood pressure diastolic 2020-12-26 13:20:00 65 mm[Hg] Common [facility] height 2020-12-21 13:40:00 65 [in_i] Commo n [facility] weight 2020-12-21 13:40:00 182.5 [lb_av] Co mmon [facility] temperature 2020-12-21 13:40:00 97.1 [degF] Com mon [facility] bmi 2020-12-21 13:40:00 30.37 kg/m2 Comm on [facility] oximetry 2020-12-21 13:40:00 97 % Commo n [facility] respiratory rate 2020-12-21 13:40:00 17 /min [facility] blood pressure systolic 2020-12-21 13:40:00 122 mm[Hg] Common [facility] blood pressure diastolic 2020-12-21 13:40:00 66 mm[Hg] Common [facility] height 2020-12-05 10:00:00 65 [in_i] Commo n [facility] weight 2020-12-05 10:00:00 182.5 [lb_av] Co mmon [facility] temperature 2020-12-05 10:00:00 97.4 [degF] Com [facility] bmi 2020-12-05 10:00:00 30.37 kg/m2 Comm on [facility] height 2020-10-26 16:00:00 65 [in_i] Commo n [facility] weight 2020-10-26 16:00:00 182.5 [lb_av] Co mmon [facility] temperature 2020-10-26 16:00:00 97.2 [degF] Com [facility] bmi 2020-10-26 16:00:00 30.37 kg/m2 Comm on [facility] oximetry 2020-10-26 16:00:00 95 % Commo [facility] respiratory rate 2020-10-26 16:00:00 17 /min [facility] blood pressure systolic 2020-10-26 16:00:00 125 mm[Hg] Common [facility] blood pressure diastolic 2020-10-26 16:00:00 63 mm[Hg] [facility] height 2020-05-16 15:00:00 65 [in_i] Commo n [facility] weight 2020-05-16 15:00:00 195.7 [lb_av] Co mmon [facility] temperature 2020-05-16 15:00:00 97.2 [degF] Com [facility] bmi 2020-05-16 15:00:00 32.56 kg/m2 Comm on [facility] oximetry 2020-05-16 15:00:00 100 % Commo n [facility] respiratory rate 2020-05-16 15:00:00 17 /min [facility] blood pressure systolic 2020-05-16 15:00:00 128 mm[Hg] [facility] blood pressure diastolic 2020-05-16 15:00:00 60 mm[Hg] Common [facility] height 2020-04-27 15:20:00 65 [in_i] Commo n [facility] weight 2020-04-27 15:20:00 190.0 [lb_av] Co mmon [facility] temperature 2020-04-27 15:20:00 97.0 [degF] Com [facility] bmi 2020-04-27 15:20:00 31.61 kg/m2 Comm on [facility] oximetry 2020-04-27 15:20:00 97 % Commo n [facility] respiratory rate 2020-04-27 15:20:00 16 /min Common [facility] blood pressure systolic 2020-04-27 15:20:00 135 mm[Hg] [facility] blood pressure diastolic 2020-04-27 15:20:00 73 mm[Hg] [facility] height 2020-04-13 14:40:00 65 [in_i] Commo n [facility] weight 2020-04-13 14:40:00 193.6 [lb_av] Co mmon [facility] temperature 2020-04-13 14:40:00 96.9 [degF] Com [facility] bmi 2020-04-13 14:40:00 32.21 kg/m2 Comm on [facility] oximetry 2020-04-13 14:40:00 97 % Commo n [facility] respiratory rate 2020-04-13 14:40:00 16 /min Common [facility] blood pressure systolic 2020-04-13 14:40:00 135 mm[Hg] [facility] blood pressure diastolic 2020-04-13 14:40:00 65 mm[Hg] [facility] height 2020-04-13 14:40:00 65 [in_i] Commo n [facility] weight 2020-04-13 14:40:00 193.6 [lb_av] Co mmon [facility] temperature 2020-04-13 14:40:00 96.9 [degF] Com [facility] bmi 2020-04-13 14:40:00 32.21 kg/m2 Comm on [facility] oximetry 2020-04-13 14:40:00 97 % Commo n [facility] respiratory rate 2020-04-13 14:40:00 16 /min [facility] blood pressure systolic 2020-04-13 14:40:00 135 mm[Hg] [facility] blood pressure diastolic 2020-04-13 14:40:00 65 mm[Hg] [facility] height 2020-03-30 10:45:00 65 [in_i] Commo n [facility] weight 2020-03-30 10:45:00 191.2 [lb_av] Co mmon [facility] temperature 2020-03-30 10:45:00 97 [degF] Comm on [facility] bmi 2020-03-30 10:45:00 31.81 kg/m2 Comm on [facility] oximetry 2020-03-30 10:45:00 99 % Commo n [facility] respiratory rate 2020-03-30 10:45:00 18 /min Common [facility] blood pressure systolic 2020-03-30 10:45:00 145 mm[Hg] [facility] blood pressure diastolic 2020-03-30 10:45:00 71 mm[Hg] [facility] height 2020-03-28 14:20:00 65 [in_i] Commo n [facility] weight 2020-03-28 14:20:00 192.5 [lb_av] Co mmon [facility] temperature 2020-03-28 14:20:00 97.0 [degF] Com mon [facility] bmi 2020-03-28 14:20:00 32.03 kg/m2 Comm on [facility] oximetry 2020-03-28 14:20:00 98 % Commo n [facility] respiratory rate 2020-03-28 14:20:00 16 /min Common [facility] blood pressure systolic 2020-03-28 14:20:00 133 mm[Hg] [facility] blood pressure diastolic 2020-03-28 14:20:00 67 mm[Hg] Common [facility] height 2020-03-16 16:30:00 65 [in_i] Commo n [facility] weight 2020-03-16 16:30:00 192.7 [lb_av] Co mmon [facility] temperature 2020-03-16 16:30:00 97.2 [degF] Com mon [facility] bmi 2020-03-16 16:30:00 32.06 kg/m2 Comm on [facility] oximetry 2020-03-16 16:30:00 100 % Commo n [facility] respiratory rate 2020-03-16 16:30:00 17 /min Common [facility] blood pressure systolic 2020-03-16 16:30:00 137 mm[Hg] [facility] blood pressure diastolic 2020-03-16 16:30:00 70 mm[Hg] [facility] height 2020-02-18 14:30:00 65 [in_i] Commo n [facility] weight 2020-02-18 14:30:00 194.7 [lb_av] Co mmon [facility] temperature 2020-02-18 14:30:00 97.8 [degF] Com mon [facility] bmi 2020-02-18 14:30:00 32.4 kg/m2 Commo n [facility] oximetry 2020-02-18 14:30:00 96 % Commo n [facility] blood pressure systolic 2020-02-18 14:30:00 147 mm[Hg] [facility] blood pressure diastolic 2020-02-18 14:30:00 69 mm[Hg] [facility] height 2019-08-27 14:30:00 65 [in_i] Commo n [facility] weight 2019-08-27 14:30:00 192.7 [lb_av] Co mmon [facility] temperature 2019-08-27 14:30:00 97.8 [degF] Com mon [facility] bmi 2019-08-27 14:30:00 32.06 kg/m2 Comm on [facility] oximetry 2019-08-27 14:30:00 96 % Commo n [facility] blood pressure systolic 2019-08-27 14:30:00 148 mm[Hg] [facility] blood pressure diastolic 2019-08-27 14:30:00 72 mm[Hg] [facility] height 2019-03-04 11:00:00 65 [in_i] Commo n [facility] weight 2019-03-04 11:00:00 189.0 [lb_av] Co mmon [facility] temperature 2019-03-04 11:00:00 97.4 [degF] Com mon [facility] bmi 2019-03-04 11:00:00 31.45 kg/m2 Comm on [facility] oximetry 2019-03-04 11:00:00 96 % Commo n [facility] blood pressure systolic 2019-03-04 11:00:00 157 mm[Hg] [facility] blood pressure diastolic 2019-03-04 11:00:00 62 mm[Hg] [facility] height 2019-02-08 13:00:00 65 [in_i] Commo n [facility] weight 2019-02-08 13:00:00 183.5 [lb_av] Co [facility] temperature 2019-02-08 13:00:00 98.1 [degF] Com [facility] bmi 2019-02-08 13:00:00 30.53 kg/m2 Comm on [facility] oximetry 2019-02-08 13:00:00 98 % Commo n [facility] blood pressure systolic 2019-02-08 13:00:00 154 mm[Hg] [facility] blood pressure diastolic 2019-02-08 13:00:00 88 mm[Hg] Common [facility] height 2019-01-27 10:00:00 65 [in_i] Commo n [facility] weight 2019-01-27 10:00:00 185.8 [lb_av] Co on [facility] temperature 2019-01-27 10:00:00 97.8 [degF] Com [facility] bmi 2019-01-27 10:00:00 30.92 kg/m2 Comm on [facility] oximetry 2019-01-27 10:00:00 98 % Commo n [facility] respiratory rate 2019-01-27 10:00:00 17 /min Common [facility] blood pressure systolic 2019-01-27 10:00:00 140 mm[Hg] [facility] blood pressure diastolic 2019-01-27 10:00:00 78 mm[Hg] [facility] BP Systolic 2024-01-28 08:23:00 142 mm[Hg] Step hen [facility] BP Diastolic 2024-01-28 08:23:00 80 mm[Hg] Bobby phen [facility] Weight Measured 2024-01-28 08:23:00 180.20 pounds [facility] Height Measured 2024-01-28 08:23:00 64.00 inches [facility] Body Temperature 2024-01-28 08:23:00 97.30 degrees [facility] Heart Rate 2024-01-28 08:23:00 59.00 /min Joaquina en [facility] Respiratory Rate 2024-01-28 08:23:00 18.00 /min [facility] BP Systolic 2023-10-09 09:48:00 149 mm[Hg] Step hen [facility] BP Diastolic 2023-10-09 09:48:00 84 mm[Hg] Bobby phen [facility] Weight Measured 2023-10-09 09:48:00 175.00 pounds [facility] Height Measured 2023-10-09 09:48:00 64.00 inches [facility] Body Temperature 2023-10-09 09:48:00 98.20 degrees [facility] Heart Rate 2023-10-09 09:48:00 68.00 /min Joaquina en [facility] Respiratory Rate 2023-10-09 09:48:00 18.00 /min [facility] BP Systolic 2023-08-18 13:43:00 109 mm[Hg] Step hen [facility] BP Diastolic 2023-08-18 13:43:00 68 mm[Hg] Bobby phen [facility] Weight Measured 2023-08-18 13:43:00 173.20 pounds [facility] Height Measured 2023-08-18 13:43:00 64.00 inches [facility] Body Temperature 2023-08-18 13:43:00 98.10 degrees [facility] Heart Rate 2023-08-18 13:43:00 63.00 /min Joaquina en [facility] Respiratory Rate 2023-08-18 13:43:00 19.00 /min [facility] BP Systolic 2023-06-28 12:28:00 133 mm[Hg] Step hen [facility] BP Diastolic 2023-06-28 12:28:00 77 mm[Hg] Bobby [facility] Weight Measured 2023-06-28 12:28:00 175.20 pounds [facility] Height Measured 2023-06-28 12:28:00 64.00 inches [facility] Body Temperature 2023-06-28 12:28:00 97.90 degrees [facility] Heart Rate 2023-06-28 12:28:00 66.00 /min Joaquina en [facility] Respiratory Rate 2023-06-28 12:28:00 Rock [facility] BP Systolic 2023-01-06 13:59:00 147 mm[Hg] Step hen F Ronnell BP Diastolic 2023-01-06 13:59:00 88 mm[Hg] Bobby phen F Ronnell Weight Measured 2023-01-06 13:59:00 180.40 pounds Rock F Ronnell Height Measured 2023-01-06 13:59:00 64.00 inches Rock F Ronnell Body Temperature 2023-01-06 13:59:00 98.30 degrees Rock F Ronnell Heart Rate 2023-01-06 13:59:00 67.00 /min Joaquina en F Ronnell Respiratory Rate 2023-01-06 13:59:00 16.00 /min Rock F Ronnell BP Systolic 2021-12-05 13:19:00 Step hen F Ronnell BP Diastolic 2021-12-05 13:19:00 Bobby phen F Ronnell Weight Measured 2021-12-05 13:19:00 Rock F Ronnell Height Measured 2021-12-05 13:19:00 Rock F Ronnell Body Temperature 2021-12-05 13:19:00 Rock F Ronnell Heart Rate 2021-12-05 13:19:00 Joaquina en F Ronnell Respiratory Rate 2021-12-05 13:19:00 Rock F Ronnell BP Systolic 2021-02-16 10:53:00 Step hen F Ronnell BP Diastolic 2021-02-16 10:53:00 Bobby phen F Ronnell Weight Measured 2021-02-16 10:53:00 180.00 pounds Rock F Ronnell Height Measured 2021-02-16 10:53:00 64.00 inches Rock F Ronnell Body Temperature 2021-02-16 10:53:00 Rock F Ronnell Heart Rate 2021-02-16 10:53:00 Joaquina en F Ronnell Respiratory Rate 2021-02-16 10:53:00 Rock F Ronnell BP Systolic 2020-12-07 16:51:00 142 mm[Hg] Step hen F Ronnell BP Diastolic 2020-12-07 16:51:00 82 mm[Hg] Bobby phen F Ronnell Weight Measured 2020-12-07 16:51:00 183.80 pounds Rock F Ronnell Height Measured 2020-12-07 16:51:00 64.00 inches Rock F Ronnell Body Temperature 2020-12-07 16:51:00 98.60 degrees Rock F Ronnell Heart Rate 2020-12-07 16:51:00 72.00 /min Joaquina en F Ronnell Respiratory Rate 2020-12-07 16:51:00 17.00 /min Rock F Ronnell BP Systolic 2019-11-29 14:08:00 120 mm[Hg] Step hen F Ronnell BP Diastolic 2019-11-29 14:08:00 69 mm[Hg] Bobby phen F Ronnell Weight Measured 2019-11-29 14:08:00 193.60 pounds Rock F Ronnell Height Measured 2019-11-29 14:08:00 64.00 inches Rock F Ronnell Body Temperature 2019-11-29 14:08:00 98.90 degrees Rock F Ronnell Heart Rate 2019-11-29 14:08:00 75.00 /min Joaquina en F Ronnell Respiratory Rate 2019-11-29 14:08:00 16.00 /min Rock F Ronnell BP Systolic 2019-05-10 14:23:00 123 mm[Hg] Step hen F Ronnell BP Diastolic 2019-05-10 14:23:00 77 mm[Hg] Bobby phen F Ronnell Weight Measured 2019-05-10 14:23:00 187.00 pounds Rock F Ronnell Height Measured 2019-05-10 14:23:00 64.00 inches Rock F Ronnell Body Temperature 2019-05-10 14:23:00 98.50 degrees Rock F Ronnell Heart Rate 2019-05-10 14:23:00 68.00 /min Joaquina en F Ronnell Respiratory Rate 2019-05-10 14:23:00 Rock F Ronnell BP Systolic 2017-03-12 10:56:00 135 mm[Hg] Step hen F Ronnell BP Diastolic 2017-03-12 10:56:00 82 mm[Hg] Bobby phen F Ronnell Weight Measured 2017-03-12 10:56:00 174.40 pounds Rock F Ronnell Height Measured 2017-03-12 10:56:00 64.00 inches Rock F Ronnell Body Temperature 2017-03-12 10:56:00 98.20 degrees Rock F Ronnell Heart Rate 2017-03-12 10:56:00 72.00 /min Joaquina en F Ronnell Respiratory Rate 2017-03-12 10:56:00 15.00 /min Rock F Ronnell BP Systolic 2016-10-28 14:19:00 129 mm[Hg] BP [...] Procedure Date / Time Performed Performing Clinician Source [place] TIME OR (NON-REPORTABLE) 2024-02-09 13:05:00 Tyler Chang [facility] FL TIME OR (NON-REPORTABLE) 2024-02-09 13:05:00 Tyler Chang [facility] [address] - [place] NJX DX/THER SBST INTRLMNR CRV/THRC W/IMG GDN 2024-02-09 12:49:00 Tyler Chang [facility] POCT GLUCOSE (AUTOMATED) 2024-02-09 12:[facility] 2024-02-09 12:32:00 Tyler Chang [facility] FL TIME OR (NON-REPORTABLE) 2023-12-01 13:05:00 Tyler Chang [facility] FL TIME OR (NON-REPORTABLE) 2023-12-01 13:05:00 Tyler Chang [facility] [address] - [place] NJX DX/THER SBST INTRLMNR CRV/THRC W/IMG GDN 2023-12-01 12:45:00 Tyler Chang [facility] POCT GLUCOSE (AUTOMATED) 2023-12-01 12:27:00 Tyler Chang [facility] POCT GLUCOSE (AUTOMATED) 2023-12-01 12:27:00 Tyler Chang [facility] FL TIME OR (NON-REPORTABLE) 2023-10-20 14:05:00 Tyler Chang [facility] FL TIME OR (NON-REPORTABLE) 2023-10-20 14:05:00 Tyler Chang [facility] BLOCK EPIDURAL 2023-10-20 13:47:00 Tyler Chang [facility] POCT GLUCOSE (AUTOMATED) 2023-10-20 13:07:00 Tyler Chang [facility] POCT GLUCOSE (AUTOMATED) 2023-10-20 13:07:00 Tyler Chang [facility] FL TIME OR (NON-REPORTABLE) 2023-09-22 12:43:00 Tyler Chang [facility] FL TIME OR (NON-REPORTABLE) 2023-09-22 12:43:00 Tyler Chang [facility] BLOCK EPIDURAL 2023-09-22 12:19:00 Tyler Chang [facility] POCT GLUCOSE (AUTOMATED) 2023-09-22 11:41:00 Tyler Chang [facility] POCT GLUCOSE (AUTOMATED) 2023-09-22 11:41:00 Tyler Chang [facility] FL TIME OR (NON-REPORTABLE) 2023-07-21 14:05:00 Tyler Chang [facility] BLOCK EPIDURAL 2023-07-21 13:39:00 Tyler Chang [facility] POCT GLUCOSE (AUTOMATED) 2023-07-21 13:37:00 Tyler Chang [facility] POCT GLUCOSE (AUTOMATED) 2023-07-21 13:37:00 Tyler Chang [facility] PATIENT QUESTIONNAIRE 2023-07-21 06:01:00 Doctor Unassigned, [place] [facility] DAY SURGERY - ADC 2023-07-21 06:01:00 Doctor Lupe ssigned, [place] [facility] CBC WITH DIFF 2023-07-14 16:56:00 Tyler Chang [facility] EXTERNAL PROVIDER RECORDS 2023-07-02 06:01:00 Do ctor Unassigned, [place] [facility] EXTERNAL PROVIDER RECORDS 2023-07-02 06:01:00 Do ctor Unassigned, [place] [facility] ASSIGNMENT OF BENEFITS 2023-02-21 17:34:16 Docto r Unassigned, [place] [facility] POCT URINALYSIS W/O SPECIFIC GRAVITY 2023-02-21 00:00:00 Tonie Miller [facility] FL TIME OR (NON-REPORTABLE) 2022-12-30 15:28:57 Tyler Chang [facility] FL TIME OR (NON-REPORTABLE) 2022-12-30 15:28:57 Tyler Chang [facility] BLOCK EPIDURAL 2022-12-30 14:23:00 Tyler Chang [facility] BLOCK EPIDURAL 2022-12-30 14:23:00 Tyler Chang [facility] PATIENT QUESTIONNAIRE 2022-12-30 05:01:00 Doctor Unassigned, [place] [facility] SURGERY - [facility] 2022-12-30 05:01:00 Doctor Lupe ssigned, [place] [facility] PATIENT QUESTIONNAIRE 2022-12-30 05:01:00 Doctor Unassigned, [place] [facility] - [facility] 2022-12-30 05:01:00 Doctor Lupe ssigned, [place] [facility] EXTERNAL PROVIDER RECORDS 2022-12-17 05:01:00 Do ctor Unassigned, [place] [facility] EXTERNAL PROVIDER RECORDS 2022-12-17 05:01:00 Do ctor Unassigned, [place] [facility] FL TIME OR (NON-REPORTABLE) 2022-10-28 13:25:00 Tyler Chang [facility] FL TIME OR (NON-REPORTABLE) 2022-10-28 13:25:00 Tyler Chang [facility] BLOCK EPIDURAL 2022-10-28 13:11:00 Tyler Chang [facility] EXTERNAL PROVIDER RECORDS 2022-10-15 05:01:00 Do ctor Unassigned, [place] [facility] EXTERNAL PROVIDER RECORDS 2022-10-15 05:01:00 Do ctor Unassigned, [place] [facility] FL TIME OR (NON-REPORTABLE) 2022-08-19 13:53:00 Tyler Chang [facility] FL TIME OR (NON-REPORTABLE) 2022-08-19 13:53:00 Tyler Chang [facility] BLOCK EPIDURAL 2022-08-19 13:25:00 Tyler Chang [facility] DAY SURGERY - ADC 2022-08-19 06:01:00 Doctor Lupe ssigned, [place] [facility] PHYSICIAN ORDERS 2022-08-14 06:01:00 Doctor Unas signed, [place] [facility] ASSIGNMENT OF BENEFITS 2022-08-07 14:52:43 Docto r Unassigned, [place] [facility] FL TIME OR (NON-REPORTABLE) 2022-02-04 13:33:00 Tyler Chang [facility] BLOCK EPIDURAL 2022-02-04 13:19:00 Tyler Chang [facility] DAY SURGERY - [facility] 2022-02-04 05:01:00 Doctor Lupe ssigned, [place] [facility] ASSIGNMENT OF BENEFITS 2022-02-01 13:22:22 Docto r Unassigned, [place] [facility] INSURANCE CORRESPONDENCE 2022-01-22 05:01:00 Doc tor Unassigned, [place] [facility] FL TIME OR (NON-REPORTABLE) 2022-01-21 13:09:57 Tyler Chang [facility] FL TIME OR (NON-REPORTABLE) 2022-01-21 13:09:57 Tyler Chang [facility] BLOCK EPIDURAL 2022-01-21 12:20:00 Tyler Chang [facility] POCT GLUCOSE (AUTOMATED) 2022-01-21 11:52:00 Tyler Chang [facility] POCT GLUCOSE (AUTOMATED) 2022-01-21 11:52:00 Tyler Chang [facility] POCT GLUCOSE(AGE >30DAYS) 2022-01-21 11:50:00 Afua Messina [facility] POCT GLUCOSE(AGE >30DAYS) 2022-01-21 11:50:00 Afua Messina [facility] DAY SURGERY - ADC 2022-01-21 05:01:00 Doctor Lupe ssigned, [place] [facility] ASSIGNMENT OF BENEFITS 2022-01-19 13:49:22 Docto r Unassigned, [place] [facility] FL TIME OR (NON-REPORTABLE) 2022-01-07 14:28:08 Tyler Chang [facility] BLOCK EPIDURAL 2022-01-07 13:11:00 Tyler Chang [facility] PATIENT QUESTIONNAIRE 2022-01-07 05:01:00 Doctor Unassigned, [place] [facility] ASSIGNMENT OF BENEFITS 2022-01-04 15:33:26 Docto r Unassigned, [place] [facility] ASSIGNMENT OF BENEFITS 2021-12-27 15:16:29 Docto r Unassigned, [place] [facility] EXTERNAL PROVIDER RECORDS 2021-12-26 05:01:00 Do ctor Unassigned, [place] [facility] EXTERNAL PROVIDER RECORDS 2021-12-26 05:01:00 Do ctor Unassigned, [place] [facility] PVR 2021-08-09 00:00:00 [facility] [address] Ecg Routine Ecg W/least 12 Lds W/i r 2016-10-23 00:00:00 Rock Reynaga [address] Ecg Routine Ecg W/least 12 Lds W/i r 2016-07-09 00:00:00 Rock Reynaga PVR [facility] P[facility] P[facility] P[facility] Plan of Care Planned Activity Planned Date Details Comments Source Goal Plan of Care Note [code = 29480-8] Goal Plan of Care Note [code = 45221-6] Goal Plan of Care Note [code = 57731-9] Goal Plan of Care Note [code = 86198-9] Goal Plan of Care Note [code = 74216-2] Goal Plan of Care Note [code = 42588-3] Goal Plan of Care Note [code = 25662-6] Goal Plan of Care Note [code = 13645-9] Goal Plan of Care Note [code = 36707-5] Goal Plan of Care Note [code = 47087-8] Goal Plan of Care Note [code = 19173-4] Goal Plan of Care Note [code = 85378-3] Goal Plan of Care Note [code = 33733-7] Goal Plan of Care Note [code = 74065-1] Goal Plan of Care Note [code = 81701-6] Goal Plan of Care Note [code = 85535-8] Goal Plan of Care Note [code = 23354-1] Goal Plan of Care Note [code = 03218-0] Goal Plan of Care Note [code = 53112-6] Goal Plan of Care Note [code = 17288-7] Goal Plan of Care Note [code = 69678-9] Goal Plan of Care Note [code = 60779-4] Goal Plan of Care Note [code = 10387-9] Goal Plan of Care Note [code = 92937-4] Goal Plan of Care Note [code = 58448-3] Goal Plan of Care Note [code = 90774-4] Goal Plan of Care Note [code = 30343-8] Goal Plan of Care Note [code = 99102-0] Goal Plan of Care Note [code = 00797-2] Goal Plan of Care Note [code = 69533-8] Goal Plan of Care Note [code = 39942-7] Goal Plan of Care Note [code = 66797-0] Goal Plan of Care Note [code = 48121-1] Goal Plan of Care Note [code = 66128-8] Goal Plan of Care Note [code = 52210-6] Goal Plan of Care Note [code = 46615-9] Goal Plan of Care Note [code = 76962-4] Goal Plan of Care Note [code = 08359-2] Goal Plan of Care Note [code = 02536-3] Goal Plan of Care Note [code = 87098-9] Goal Plan of Care Note [code = 16111-6] Goal Plan of Care Note [code = 92805-7] Goal Plan of Care Note [code = 20103-4] Goal Plan of Care Note [code = 78816-1] Goal Plan of Care Note [code = 02501-2] Goal Plan of Care Note [code = 72174-9] Goal Plan of Care Note [code = 46085-8] Goal Plan of Care Note [code = 32405-3] Goal Plan of Care Note [code = 47068-5] Goal Plan of Care Note [code = 69217-9] Goal Plan of Care Note [code = 45465-8] Goal Plan of Care Note [code = 88420-4] Encounters Start Date/Time End Date/Time Encounter Type Admission Type Attending [facility] Care Facility Care Department Encounter ID Source 2024-02-09 09:08:00 Outpatient Sub[facility]oonDestinee [facility] [id number] [facility] 2024-02-05 08:19:00 Outpatient MillerSarahy britoh [facility] [id number] [facility] 2024-02-04 15:15:00 Outpatient MillerSarahy britoh [facility] [id number] [facility] 2024-01-06 08:30:12 [facility] [id number] [facility] 2023-12-16 17:22:18 Outpatient TYLER [facility]S [id number] [facility] 2023-11-26 14:56:00 Outpatient MillerSarahy britoh [facility] [id number] [facility] 2023-11-24 14:01:00 Outpatient Miller Tonio [facility] ST[facility] [id number] [facility] 2023-11-11 14:40:00 Outpatient MillerSarahy britoh [facility] [id number] [facility] 2023-11-07 10:09:00 Outpatient Paul Tonio [facility] [id number] [facility] 2023-09-13 10:28:05 [facility] [id number] [facility] 2023-09-01 17:05:00 Outpatient Miller, Tonio [facility]LMLC ST[facility] [id number] [facility] 2023-07-28 15:00:00 Outpatient Miller, Tonio [facility]LMLC ST[facility] [id number] [facility] 2023-02-12 14:00:00 Outpatient Miller, Tonio [facility]LMLC ST[facility] [id number] [facility] 2022-11-05 07:41:00 Outpatient Miller, Tonio [facility] [id number] [facility] 2022-09-27 09:47:00 Outpatient Miller, Tonio [facility]LMLC ST[facility] [id number] [facility] 2022-09-17 15:13:58 [facility] [id number] [facility] 2022-08-29 15:21:37 [facility] [id number] [facility] 2022-07-17 12:43:40 [facility] [id number] [facility] 2022-06-03 09:39:00 Outpatient Miller, Tonio [facility]C ST[facility] [id number] [facility] 2022-04-26 14:39:00 Outpatient Miller, Tonio [facility] ST[facility] [id number] [facility] 2022-04-25 13:11:00 Outpatient Miller, Tonio [facility] ST[facility] [id number] [facility] 2022-01-17 13:47:01 Outpatient Miller, Tonio [facility]C ST[facility]C [id number] [facility] 2022-01-07 08:42:[address] [facility] [id number] [facility] 2021-10-30 15:01:00 Outpatient Miller, Tonio STLMLC STLMLC [id number] [facility] 2021-10-04 08:34:01 Outpatient Miller, Tonio [facility]LMLC STL[facility]C [id number] [facility] 2021-07-18 14:19:22 Outpatient Miller, Tonio [facility]C STL[facility] [id number] [facility] 2021-07-18 13:45:16 Outpatient Miller, Tonio [facility]LMLC STL[facility] [id number] [facility] 2021-07-18 12:59:49 Outpatient Miller, Tonio [facility]LMLC STL[facility]C [id number] [facility] 2021-07-18 12:31:12 Outpatient Miller, Tonio [facility]LMLC STL[facility]C [id number] [facility] 2021-07-18 12:29:23 Outpatient Miller, Tonio [facility]LMLC STL[facility] [id number] [facility] 2021-07-18 12:24:50 Outpatient Miller, Tonio [facility]LMLC STLMLC [id number] [facility] 2021-07-18 12:24:31 Outpatient Miller, Tonio [facility]LMLC STL[facility]C [id number] [facility] 2021-07-18 12:23:16 Outpatient Miller, Tonio [facility]LMLC STL[facility]C [id number] [facility] 2021-07-18 12:09:35 Outpatient Miller, Tonio [facility] STL[facility]C [id number] [facility] 2021-07-18 12:08:47 Outpatient Miller, Tonio [facility] STL[facility] [id number] [facility] 2021-07-18 12:08:21 Outpatient Miller, Tonio [facility] STLC [id number] [facility] 2021-07-18 12:07:39 Outpatient Miller, Tonio [facility]C STLC [id number] [facility] 2021-07-18 11:57:35 Outpatient Miller, Tonio STLC STLC [id number] [facility] 2021-07-18 11:55:10 Outpatient Miller, Tonio STLC STLC [id number] [facility] 2021-07-18 11:25:38 Outpatient Miller, Tonio STLC STLC [id number] [facility] 2021-07-18 11:24:24 Outpatient Miller, Tonio STLC STLC [id number] [facility] 2021-07-18 11:20:51 Outpatient Miller, Tonio STLC STLC [id number] [facility] 2021-07-18 11:19:05 Outpatient Miller, Tonio STLC STLC [id number] [facility] 2021-07-18 11:17:38 Outpatient Miller, Tonio STLC STLC [id number] [facility] 2021-07-18 11:10:37 Outpatient Miller, Tonio STLC STLC [id number] [facility] 2021-07-18 11:07:32 Outpatient Miller, Tonio STLC STLC [id number] [facility] 2021-07-18 11:07:07 Outpatient Miller, Tonio STLC STLC [id number] [facility] 2021-07-18 11:06:50 Outpatient Miller, Tonio STLC STLC [id number] [facility] 2021-07-18 11:04:55 Outpatient Tonio Miller [facility] [id number] [facility] 2021-07-18 11:00:24 Outpatient Tonio Miller [facility] [id number] [facility] 2021-04-22 14:22:47 Outpatient Briseida [facility] [id number] [facility] 2021-04-22 10:11:45 [facility] [id number] [facility] 2021-04-22 10:11:40 Outpatient Briseida CHANG [facility] [id number] [facility] 2021-04-20 17:34:36 [facility] [id number] [facility] 2021-04-20 14:46:00 Outpatient Briseida CHANG [facility] K[facility] [id number] [facility] 2021-04-20 13:57:14 Outpatient Briseida CHANG [facility] K[facility] [id number] [facility] 2021-04-20 01:30:11 Outpatient Briseida CHANG [facility] K[facility] [id number] [facility] 2021-04-20 01:30:04 Outpatient Briseida CHANG [facility] K[facility] [id number] [facility] 2021-04-20 01:29:58 [facility] [id number] [facility] 2021-04-19 16:47:45 Emergency [facility] [id number] [facility] 2021-04-19 16:35:06 [facility] [id number] [facility] 2021-04-19 15:34:38 Outpatient BRAEDEN BROUSSARD [facility] [id number] [facility] 2021-04-19 15:15:49 Emergency [facility] [id number] [facility] 2021-04-19 12:34:04 Outpatient [facility] [id number] [facility] 2021-04-19 11:32:12 Outpatient [facility] [id number] [facility] 2024-02-10 00:00:00 2024-02-10 00:00:00 (TEL) STLMLC [facility]C [id number] [facility] 2024-02-09 07:29:00 2024-02-09 08:38:00 [facility]patient [facility] [id number] [facility] 2024-02-09 07:29:00 2024-02-09 08:38:00 Hospital Encounter Tyler Chang [facility] [id number] [facility] 2024-02-09 08:09:00 2024-02-09 08:31:00 [facility] [id number] [facility] 2024-02-09 00:00:00 2024-02-09 00:00:00 (TEL) STLMLC STLMLC [id number] [facility] 2024-02-09 00:00:00 2024-02-09 00:00:00 OFFICE VISIT ESTAB PT LEVEL 4 STLMLC STLMLC [id number] [facility] 2024-02-05 00:00:00 2024-02-05 00:00:00 OFFICE VISIT NEW PT LEVEL 4 STLMLC STLMLC [id number] [facility] 2024-02-04 00:00:00 2024-02-04 00:00:00 (TEL) STLMLC STLMLC [id number] [facility] 2024-01-28 08:15:40 2024-01-28 08:15:40 Outpatient [facility] [id number] Rock Reynaga 2024-01-28 00:00:00 2024-01-28 00:00:00 Outpatient Visit [facility] [id number] Rock Reynaga 2024-01-27 00:00:00 2024-01-27 00:00:00 ([place]) Nurse Visit STLC STLC [id number] [facility] 2023-12-24 00:00:00 2023-12-24 10:42:27 Telephone Sasha Arechiga [facility] [id number] [facility] 2023-12-23 00:00:00 2023-12-23 00:00:00 ([place]) [facility] [id number] [facility] 2023-12-01 07:09:00 2023-12-01 08:44:00 Outpatient R [facility]S [id number] [facility] 2023-12-01 07:09:00 2023-12-01 08:44:00 Hospital Encounter [facility] [id number] [facility] 2023-12-01 08:08:00 2023-12-01 08:30:00 Surgery [facility] [id number] [facility] 2023-11-26 08:30:00 2023-11-26 08:45:00 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, 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 Tyler Chang [facility] [id number] [facility] 2023-11-26 08:30:00 2023-11-26 08:30:00 Outpatient TYLER SANFORD [facility] [id number] [facility] 2023-11-26 00:00:00 2023-11-26 00:00:00 OFFICE VISIT ESTAB PT LEVEL 4 STLMLC STLMLC [id number] [facility] 2023-11-26 00:00:00 2023-11-26 00:00:00 INIT ANNUAL [facility] VISIT STLMLC STLMLC [id number] [facility] 2023-11-26 00:00:00 2023-11-26 00:00:00 (TEL) STLMLC STLMLC [id number] [facility] 2023-11-25 00:00:00 2023-11-25 00:00:00 (TEL) STLMLC STLMLC [id number] [facility] 2023-11-11 00:00:00 2023-11-11 00:00:00 (TEL) STLMLC STLMLC [id number] [facility] 2023-11-11 00:00:00 2023-11-11 00:00:00 OFFICE VISIT ESTAB PT LEVEL 1 STLMLC STLMLC [id number] [facility] 2023-11-07 00:00:00 2023-11-07 00:00:00 (TEL) STLMLC STLMLC [id number] [facility] 2023-11-07 00:00:00 2023-11-07 00:00:00 OFFICE VISIT ESTAB PT LEVEL 3 STLMLC STLMLC [id number] [facility] 2023-10-20 07:49:00 2023-10-20 09:45:00 Outpatient TYLER [facility]FORD [facility] ANS [id number] [facility] 2023-10-20 07:49:00 2023-10-20 09:45:00 Hospital Encounter Tyler Chang [facility] [place] 1.2.840.114 350.1.13.10 4.2.7.2.686 [id number] [facility] 2023-10-20 08:50:00 2023-10-20 09:12:00 Surgery Tyler Chang [facility] 1.2.840.114 350.1.13.10 4.2.7.2.686 [id number] [facility] 2023-10-09 09:48:06 2023-10-09 09:48:06 Outpatient [facility] [id number] Rock Reynaga 2023-10-09 00:00:00 2023-10-09 00:00:00 Outpatient Visit [facility] [id number] Rock Reynaga 2023-10-02 11:28:23 2023-10-02 11:28:23 Outpatient [facility] [id number] Rock Reynaga 2023-09-22 06:24:00 2023-09-22 08:23:00 Outpatient O TYLER CHANG [facility] ANS [id number] [facility] 2023-09-22 06:24:00 2023-09-22 08:23:00 Hospital Encounter Tyler Chang [facility] [place] 1.2.840.114 350.1.13.10 4.2.7.2.686 [id number] [facility] 2023-09-22 07:25:00 2023-09-22 07:48:00 [facility] [place] 1.2.840.114 350.1.13.10 4.2.7.2.686 [id number] [facility] 2023-08-27 00:00:00 2023-08-27 00:00:00 (TEL) STLMLC STLMLC [id number] [facility] 2023-08-18 13:29:43 2023-08-18 13:29:43 Outpatient [facility] [id number] Rock Reynaga 2023-07-30 00:00:00 2023-07-30 00:00:00 OFFICE VISIT ESTAB PT LEVEL 4 STLMLC STLMLC [id number] [facility] 2023-07-21 07:24:00 2023-07-21 08:39:00 Outpatient TYLER [facility]ORD [facility] ANS [id number] [facility] 2023-07-21 07:24:00 2023-07-21 08:39:00 Hospital Encounter [facility] 1.2.840.114 350.1.13.10 4.2.7.2.686 [id number] [facility] 2023-07-21 08:11:00 2023-07-21 08:34:00 Surgery [facility] 1.2.840.114 350.1.13.10 4.2.7.2.686 [id number] [facility] 2023-07-14 11:15:00 2023-07-14 11:30:00 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, 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 Gilson Changt [facility] 1.2.840.114 350.1.13.10 4.2.7.2.686 [id number] [facility] 2023-07-14 11:15:00 2023-07-14 11:15:00 Outpatient TYLER SANFORD [facility] [id number] [facility] 2023-06-28 12:27:31 2023-06-28 12:27:31 Outpatient [facility] [id number] Rock Reynaga 2023-06-27 00:00:00 2023-06-27 00:00:00 (TEL) STLMLC STLMLC [id number] [facility] 2023-05-23 13:30:00 2023-05-23 13:30:00 Outpatient R TONIE MILLER [facility] [id number] [facility] 2023-05-20 00:00:00 2023-05-20 00:00:00 (TEL) STLMLC STLMLC [id number] [facility] 2023-04-29 00:00:00 2023-04-29 00:00:00 OFFICE VISIT ESTAB PT LEVEL 4 STLMLC STLMLC [id number] [facility] 2023-04-14 00:00:00 2023-04-14 00:00:00 (TEL) STLMLC STLMLC [id number] [facility] 2023-03-05 10:30:00 2023-03-05 10:30:00 Outpatient R RACHELLE BOWMAN CHERYAL [facility] [id number] [facility] 2023-03-04 00:00:00 2023-03-04 00:00:00 (TEL) STLMLC STLMLC [id number] [facility] 2023-02-28 10:00:00 2023-02-28 10:00:00 Outpatient R [facility] [id number] [facility] 2023-02-21 13:00:00 2023-02-21 13:20:28 Outpatient R TONIE MILLER [facility] [id number] [facility] 2023-02-21 13:00:00 2023-02-21 13:20:28 Office Visit Tonie Miller [facility] 1.2.840.114 350.1.13.10 4.2.7.2.686 [id number] [facility] 2023-02-21 00:00:00 2023-02-21 00:00:00 Orders Only Doctor Unassigned, [place] [facility] 1.840.114 350.1.13.10 4.2.7.2.686 [id number] [facility] 2023-02-20 00:00:00 2023-02-20 00:00:00 (TEL) STLMLC STLMLC [id number] [facility] 2023-02-18 00:00:00 2023-02-18 00:00:00 (TEL) STLMLC STLMLC [id number] [facility] 2023-02-13 00:00:00 2023-02-13 00:00:00 (TEL) STLMLC STLMLC [id number] [facility] 2023-01-27 00:00:00 2023-01-27 00:00:00 OFFICE VISIT ESTAB PT LEVEL 4 STLMLC STLMLC [id number] [facility] 2023-01-09 00:00:00 2023-01-09 00:00:00 (TEL) STLMLC STLMLC [id number] [facility] 2023-01-08 00:00:00 2023-01-08 00:00:00 OFFICE VISIT ESTAB PT LEVEL 2 STLMLC STLMLC [id number] [facility] 2023-01-06 13:50:58 2023-01-06 13:50:58 Outpatient [facility] [id number] Rock Rondon Ronnell 2023-01-06 10:00:00 2023-01-06 10:00:00 Outpatient RACHELLE GLEASON [facility]ERY[facility] [id number] [facility] 2022-12-30 10:12:00 2022-12-30 10:35:00 Surgery Tyler Chang [facility] [place] 1..840.114 350.1.13.10 4.2.7.2.686 [id number] [facility] 2022-12-30 08:57:00 2022-12-30 10:30:00 Outpatient R TYLER CHANG [facility] [id number] [facility] 2022-12-30 08:57:00 2022-12-30 10:30:00 Hospital Encounter Tyler Chang [facility] 1.2.840.114 350.1.13.10 4.2.7.2.686 [id number] [facility] 2022-12-16 14:30:00 2022-12-16 14:30:00 Outpatient Briseida NORMAGLYNNOGRACHELLE JORDAN ITZELJULIAN RACHELLE [facility] [id number] [facility] 2022-12-16 00:00:00 2022-12-16 00:00:00 (TEL) STLMLC STLMLC [id number] [facility] 2022-12-16 00:00:00 2022-12-16 00:00:00 OFFICE VISIT ESTAB PT LEVEL 2 STLMLC STLMLC [id number] [facility] 2022-12-09 10:01:45 2022-12-09 10:01:45 Outpatient [facility] [id number] Rock F Ronnell 2022-11-25 00:00:00 2022-11-25 00:00:00 Telephone Shante Hickman 1.2.840.114 350.1.13.10 4.2.7.2.686 [id number] [facility] 2022-11-21 10:30:00 2022-11-21 10:30:00 Outpatient FBARICIO BENDER MARISOL [facility] [id number] [facility] 2022-11-06 00:00:00 2022-11-06 00:00:00 OFFICE VISIT ESTAB PT LEVEL 4 STLMLC STLMLC [id number] [facility] 2022-10-28 07:04:00 2022-10-28 09:08:00 Outpatient R TYLER CHANG [facility] AN[facility] [id number] [facility] 2022-10-28 07:04:00 2022-10-28 09:08:00 [facility] 1.2.840.114 350.1.13.10 4.2.7.2.686 [id number] [facility] 2022-10-28 08:28:00 2022-10-28 08:50:00 Surgery Bernardo [facility] 1.2.840.114 350.1.13.10 4.2.7.2.686 [id number] [facility] 2022-10-23 00:00:00 2022-10-23 00:00:00 (TEL) STLMLC STLMLC [id number] [facility] 2022-10-16 00:00:00 2022-10-16 00:00:00 (TEL) STLMLC STLMLC [id number] [facility] 2022-10-14 00:00:00 2022-10-14 00:00:00 (TEL) STLMLC STLMLC [id number] [facility] 2022-10-11 00:00:00 2022-10-11 00:00:00 (TEL) STLMLC STLMLC [id number] [facility] 2022-10-11 00:00:00 2022-10-11 00:00:00 OFFICE VISIT ESTAB PT LEVEL 4 STLMLC STLMLC [id number] [facility] 2022-09-26 00:00:00 2022-09-26 00:00:00 (TEL) STLMLC STLMLC [id number] [facility] 2022-09-20 10:00:00 2022-09-20 10:00:00 Outpatient R RACHELLE BOWMAN CHERYAL [facility] [id number] [facility] 2022-09-18 00:00:00 2022-09-18 00:00:00 (TEL) STLMLC STLMLC [id number] [facility] 2022-09-17 09:00:00 2022-09-17 09:00:00 Outpatient R RACHELLE BOWMAN CHERYAL [facility] [id number] [facility] 2022-09-17 00:00:00 2022-09-17 00:00:00 OFFICE VISIT ESTAB PT LEVEL 3 STLMLC STLMLC [id number] [facility] 2022-09-10 00:00:00 2022-09-10 00:00:00 OFFICE VISIT ESTAB PT LEVEL 3 STLMLC STLMLC [id number] [facility] 2022-09-09 00:00:00 2022-09-09 00:00:00 (TEL) STLMLC STLMLC [id number] [facility] 2022-09-02 00:00:00 2022-09-02 00:00:00 Otoniel Chen [facility] 1.2.840.114 350.1.13.10 4.2.7.2.686 [id number] [facility] 2022-08-19 06:39:00 2022-08-19 08:33:00 Outpatient R TYLER CHANG [facility] KIERAN [id number] [facility] 2022-08-19 06:39:00 2022-08-19 08:33:00 Hospital Encounter Tyler Chang [facility] 1.2.840.114 350.1.13.10 4.2.7.2.686 [id number] [facility] 2022-08-19 07:25:00 2022-08-19 07:47:00 [facility] 1.2840.114 350.1.13.10 4.2.7.2.686 [id number] [facility] 2022-08-14 11:15:00 2022-08-14 11:30:00 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, 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 Bernardo [facility] 1.2840.114 350.1.13.10 4.2.7.2.686 [id number] [facility] 2022-08-14 11:15:00 2022-08-14 11:15:00 Outpatient R BERNARDO [facility] [id number] [facility] 2022-08-14 00:00:00 2022-08-14 00:00:00 Orders Only Doctor Unassigned, [place] [facility] 1.2840.114 350.1.13.10 4.2.7.2.686 [id number] [facility] 2022-08-08 00:00:00 2022-08-08 00:00:00 OFFICE VISIT ESTAB PT LEVEL 4 [facility] [id number] [facility] 2022-08-08 00:00:00 2022-08-08 00:00:00 (TEL) [facility] [id number] [facility] 2022-08-08 00:00:00 2022-08-08 00:00:00 WELCOME TO MEDICARE PREV PHY EXAM [facility] [id number] [facility] 2022-08-07 00:00:00 2022-08-07 00:00:00 Orders Only Doctor Unassigned, [place] [facility] 1.2840.114 350.1.13.10 4.2.7.2.686 [id number] [facility] 2022-08-02 00:00:00 2022-08-02 00:00:00 [facility] 1.2840.114 350.1.13.10 4.2.7.2.686 [id number] [facility] 2022-07-23 00:00:00 2022-07-23 00:00:00 (INJ) Injection STLMLC STLMLC [id number] [facility] 2022-07-19 00:00:00 2022-07-19 00:00:00 [facility] 1.2840.114 350.1.13.10 4.2.7.2.686 [id number] [facility] 2022-07-17 13:00:00 2022-07-17 13:32:20 Out[facility] [id number] [facility] 2022-07-17 13:00:00 2022-07-17 13:32:20 [facility] 1.2840.114 350.1.13.10 4.2.7.2.686 [id number] [facility] 2022-07-16 00:00:00 2022-07-16 00:00:00 Telephone Trimaikel [facility] 1.2840.114 350.1.13.10 4.2.7.2.686 [id number] 134 [id number] [facility] 2022-07-14 00:00:00 2022-07-14 00:00:[address] [facility] 1.2840.114 350.1.13.10 4.2.7.2.686 [id number] 134 [id number] [facility] 2022-07-01 00:00:00 2022-07-01 00:00:00 (TEL) STLMLC STLMLC [id number] [facility] 2022-07-01 00:00:00 2022-07-01 00:00:00 OFFICE VISIT EST PT LEVEL 3 STLMLC STLMLC [id number] [facility] 2022-06-18 00:00:00 2022-06-18 00:00:00 (TEL) STLMLC STLMLC [id number] [facility] 2022-06-05 00:00:00 2022-06-05 00:00:00 OFFICE VISIT ESTAB PT LEVEL 4 STLMLC STLMLC [id number] [facility] 2022-05-13 00:00:00 2022-05-13 00:00:00 (TEL) STLMLC STLMLC [id number] [facility] 2022-05-08 00:00:00 2022-05-08 00:00:00 (TEL) STLMLC STLMLC [id number] [facility] 2022-04-29 00:00:00 2022-04-29 00:00:00 OFFICE VISIT ESTAB PT LEVEL 4 STLMLC STLMLC [id number] [facility] 2022-04-17 14:12:29 2022-04-17 14:12:29 Outpatient [facility] [id number] 1026 Rock Reyngaa 2022-04-17 00:00:00 2022-04-17 00:00:00 Outpatient Visit [id number] 2022-04-17 00:00:00 2022-04-17 00:00:00 (TEL) STLMLC STLMLC [id number] [facility] 2022-04-10 14:47:35 2022-04-10 14:47:35 Outpatient [facility] [id number] [place] Reynaga 2022-04-10 00:00:00 2022-04-10 00:00:00 (TEL) STLMLC STLMLC [id number] [facility] 2022-03-27 00:00:00 2022-03-27 00:00:00 OFFICE VISIT ESTAB PT LEVEL 2 STLMLC STLMLC [id number] [facility] 2022-02-28 08:00:00 2022-02-28 08:00:00 Outpatient TONIE CONDE [facility] [id number] [facility] 2022-02-12 00:00:00 2022-02-12 00:00:00 OFFICE VISIT ESTAB PT LEVEL 2 STLMLC STLMLC [id number] [facility] 2022-02-04 07:05:00 2022-02-04 09:09:00 Outpatient Briseida CHANG [facility] [id number] [facility] 2022-02-04 07:05:00 2022-02-04 09:09:00 [facility] 1.840.114 350.1.13.10 4.2.7.2.686 [id number] [facility] 2022-02-04 08:25:00 2022-02-04 08:48:00 Surgery [facility] 1..840.114 350.1.13.10 4.2.7.2.686 [id number] [facility] 2022-02-04 00:00:00 2022-02-04 00:00:00 Orders Only Doctor Unassigned, [place] [facility] 1.840.114 350.1.13.10 4.2.7.2.686 [id number] [facility] 2022-02-01 09:00:00 2022-02-01 09:15:00 Laboratory Only Only, Adc [facility] 1.2.840.114 350.1.13.10 4.2.7.2.686 [id number] [facility] 2022-02-01 09:00:00 2022-02-01 09:00:00 Outpatient TYLER SANFORD [facility] [id number] [facility] 2022-02-01 00:00:00 2022-02-01 00:00:00 Orders Only Doctor Unassigned, [place] [facility] 1.840.114 350.1.13.10 4.2.7.2.686 [id number] [facility] 2022-01-28 00:00:00 2022-01-28 00:00:00 OFFICE VISIT ESTAB PT LEVEL 4 STLMLC STLMLC [id number] [facility] 2022-01-22 00:00:00 2022-01-22 00:00:00 Orders Only Doctor Unassigned, [place] [facility] 1..840.114 350.1.13.10 4.2.7.2.686 [id number] [facility] 2022-01-21 14:00:00 2022-01-21 14:00:00 Outpatient RACHELLE GLEASON [facility] [id number] [facility] 2022-01-21 06:28:00 2022-01-21 08:09:00 [facility] [id number] [facility] 2022-01-21 06:28:00 2022-01-21 08:09:00 Hospital Encounter Tyler Chang [facility] 1..840.114 350.1.13.10 4.2.7.2.686 [id number] [facility] 2022-01-21 07:25:00 2022-01-21 07:48:00 Surgery Bernardo, [facility] 1.2.840.114 350.1.13.10 4.2.7.2.686 [id number] [facility] 2022-01-21 00:00:00 2022-01-21 00:00:00 Orders Only Doctor Unassigned, [place] [facility] 1.2.840.114 350.1.13.10 4.2.7.2.686 [id number] [facility] 2022-01-19 09:15:00 2022-01-19 09:30:00 Laboratory Only Only, Adc Test [facility] 1.2.840.114 350.1.13.10 4.2.7.2.686 [id number] [facility] 2022-01-19 09:15:00 2022-01-19 09:15:00 Outpatient TYLER SANFORD [facility] [id number] [facility] 2022-01-19 00:00:00 2022-01-19 00:00:00 Orders Only Doctor Unassigned, [place] [facility] 1.2.840.114 350.1.13.10 4.2.7.2.686 [id number] [facility] 2022-01-17 00:00:00 2022-01-17 00:00:00 OFFICE VISIT ESTAB PT LEVEL 2 STLMLC STLMLC [id number] [facility] 2022 15:30:00 2022 15:30:00 Outpatient RACHELLE GLEASON CHERY[facility] [id number] [facility] 2022-01-07 06:46:00 2022-01-07 09:11:00 [facility] [id number] [facility] 2022-01-07 06:46:00 2022-01-07 09:11:00 [facility] [place] 1.2.840.114 350.1.13.10 4.2.7.2.686 [id number] [facility] 2022-01-07 08:23:00 2022-01-07 08:46:00 Surgery Bernardo, [facility] [place] 1.2.840.114 350.1.13.10 4.2.7.2.686 [id number] [facility] 2022-01-07 00:00:00 2022-01-07 00:00:00 Orders Only Doctor Unassigned, [place] [facility] 1.2.840.114 350.1.13.10 4.2.7.2.686 [id number] [facility] 2022-01-04 09:45:00 2022-01-04 10:00:00 Laboratory Only Only, Adc Test [facility] 1.2.840.114 350.1.13.10 4.2.7.2.686 [id number] [facility] 2022-01-04 09:45:00 2022-01-04 09:45:00 Outpatient R BERNARDO [facility] [id number] [facility] 2022-01-04 00:00:00 2022-01-04 00:00:00 Orders Only Doctor Unassigned, [place] [facility] 1.2.840.114 350.1.13.10 4.2.7.2.686 [id number] [facility] 2022-01-03 00:00:00 2022-01-03 00:00:00 OFFICE VISIT ESTAB PT LEVEL 2 STLMLC STLMLC [id number] [facility] 2022-01-03 00:00:00 2022-01-03 00:00:00 (TEL) STLMLC STLMLC [id number] [facility] 2022-01-02 00:00:00 2022-01-02 00:00:00 (TEL) STLMLC STLMLC [id number] [facility] 2021-12-27 10:15:00 2021-12-27 10:30:00 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, 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 Tyler Chang [facility] 1.2.840.114 350.1.13.10 4.2.7.2.686 [id number] [facility] 2021-12-27 10:15:00 2021-12-27 10:15:00 Outpatient TYLER SANFORD [facility] [id number] [facility] 2021-12-27 00:00:00 2021-12-27 00:00:00 Orders Only Doctor Unassigned, [place] [facility] 1.2.840.114 350.1.13.10 4.2.7.2.686 [id number] [facility] 2021-12-13 00:00:00 2021-12-13 00:00:00 (TEL) STLMLC STLMLC [id number] [facility] 2021-12-11 00:00:00 2021-12-11 00:00:00 (TEL) STLMLC STLMLC [id number] [facility] 2021-12-10 00:00:00 2021-12-10 00:00:00 OFFICE VISIT EST PT LEVEL 3 STLMLC STLMLC [id number] [facility] 2021-12-09 00:00:00 2021-12-09 00:00:00 (TEL) STLMLC STLMLC [id number] [facility] 2021-12-05 11:30:00 2021-12-05 11:30:00 Outpatient RACHELLE GLEASON CHERYAL [facility] [id number] [facility] 2021-12-04 00:00:00 2021-12-04 00:00:00 (TEL) STLMLC STLMLC [id number] [facility] 2021-11-22 00:00:00 2021-11-22 00:00:00 OFFICE VISIT ESTAB PT LEVEL 2 STLMLC STLMLC [id number] [facility] 2021-11-07 00:00:00 2021-11-07 00:00:00 (TEL) STLMLC STLMLC [id number] [facility] 2021-10-30 00:00:00 2021-10-30 00:00:00 OFFICE VISIT ESTAB PT LEVEL 4 STLMLC STLMLC [id number] [facility] 2021-10-23 00:00:00 2021-10-23 00:00:00 (TEL) STLMLC STLMLC [id number] [facility] 2021-10-17 00:00:00 2021-10-17 00:00:00 OFFICE VISIT ESTAB PT LEVEL 2 STLMLC STLMLC [id number] [facility] 2021-10-02 00:00:00 2021-10-02 00:00:00 (TEL) STLMLC STLMLC [id number] [facility] 2021-09-27 14:30:00 2021-09-27 14:30:00 Outpatient OTONIEL BASILIO [facility] [id number] [facility] 2021-09-19 00:00:00 2021-09-19 00:00:00 OFFICE VISIT ESTAB PT LEVEL 3 STLMLC STLMLC [id number] [facility] 2021-09-18 10:45:00 2021-09-18 10:45:00 Outpatient OTONIEL BASILIO [facility] [id number] [facility] 2021-09-11 09:30:00 2021-09-11 09:30:00 Outpatient OTONIEL BASILIO [facility] [id number] [facility] 2021-08-30 00:00:00 2021-08-30 00:00:00 (INJ) Injection STLMLC STLMLC [id number] [facility] 2021-08-27 00:00:00 2021-08-27 00:00:00 OL MIGUEL E/M SVC 11-20 MIN STLMLC STLMLC [id number] [facility] 2021-08-20 00:00:00 2021-08-20 00:00:00 (TEL) STLMLC STLMLC [id number] [facility] 2021-08-10 00:00:00 2021-08-10 00:00:00 (TEL) STLMLC STLMLC [id number] [facility] 2021-08-09 00:00:00 2021-08-09 00:00:00 OFFICE VISIT ESTAB PT LEVEL 4 STLMLC STLMLC [id number] [facility] 2021-07-30 00:00:00 2021-07-30 00:00:00 Telephone Fely Otoniel [facility] 1.2.840.114 350.1.13.10 4.2.7.2.686 [id number] 134 [id number] [facility] 2021-07-25 00:00:00 2021-07-25 00:00:00 (INJ) Injection STLMLC STLMLC [id number] [facility] 2021-07-24 14:30:00 2021-07-24 14:50:25 Outpatient R FELY [facility]TONIEL [facility] [id number] [facility] 2021-07-24 14:30:00 2021-07-24 14:50:25 Office Visit Fely [facility] 1.2.840.114 350.1.13.10 4.2.7.2.686 [id number] 134 [id number] [facility] 2021-07-11 00:00:00 2021-07-11 00:00:00 (TEL) STLMLC STLMLC [id number] [facility] 2021-07-02 11:00:00 2021-07-02 11:00:00 Outpatient OTONIEL BASILIO [facility] [id number] [facility] 2021-07-02 06:47:00 2021-07-02 08:10:00 Outpatient R TYLER CHANG [facility] [id number] [facility] 2021-07-02 06:47:00 2021-07-02 08:10:00 Hospital Encounter Tyler Chang [facility] 1.2.840.114 350.1.13.10 4.2.7.2.686 [id number] [facility] 2021-07-02 07:30:00 2021-07-02 07:50:00 Surgery Bernardo [facility] 1.2.840.114 350.1.13.10 4.2.7.2.686 [id number] [facility] 2021-07-02 00:00:00 2021-07-02 00:00:00 Orders Only Doctor Unassigned, [place] [facility] 1.2.840.114 350.1.13.10 4.2.7.2.686 [id number] [facility] 2021-06-30 10:00:00 2021-06-30 10:15:00 Laboratory Only Only, Adc Test Kira [facility] 1.2.840.114 350.1.13.10 4.2.7.2.686 [id number] [facility] 2021-06-30 10:00:00 2021-06-30 10:00:00 Outpatient Briseida MALONE [facility] [id number] [facility] 2021-06-30 00:00:00 2021-06-30 00:00:00 Orders Only Doctor Unassigned, [place] [facility] 1..840.114 350.1.13.10 4.2.7.2.686 [id number] [facility] 2021-06-29 08:15:00 2021-06-29 08:15:00 Outpatient TYLER [facility] [id number] [facility] 2021-06-28 15:30:00 2021-06-28 15:59:48 [id number] 2021-06-28 15:30:00 2021-06-28 15:59:48 Office Visit Otoniel Geiger [facility] 1..840.114 350.1.13.10 4.2.7.2.686 [id number] 134 [id number] [facility] 2021-06-28 15:30:00 2021-06-28 15:59:48 [facility] [id number] [facility] 2021-06-28 10:00:00 2021-06-28 10:00:00 [facility] [id number] [facility] 2021-06-28 10:00:00 2021-06-28 10:00:00 Outpatient Briseida GEIGER [facility] [id number] [facility] 2021-06-27 00:00:00 2021-06-27 00:00:00 OFFICE VISIT ESTAB PT LEVEL 2 STLMLC STLMLC [id number] [facility] 2021-06-12 10:30:00 2021-06-12 10:30:00 [facility] [id number] [facility] 2021-06-11 07:06:00 2021-06-11 08:45:00 [facility] [facility] [id number] [facility] 2021-06-11 07:06:00 2021-06-11 08:45:00 [facility] [place] 1.2.840.114 350.1.13.10 4.2.7.2.686 [id number] [facility] 2021-06-11 07:49:00 2021-06-11 08:09:00 [facility] [place] 1.2.840.114 350.1.13.10 4.2.7.2.686 [id number] [facility] 2021-06-08 08:45:00 2021-06-08 08:45:00 Outpatient Briseida CHANG [facility] [id number] [facility] 2021-06-06 00:00:00 2021-06-06 00:00:00 Telephone Fely [facility] 1.2.840.114 350.1.13.10 4.2.7.2.686 [id number] [facility] 2021-06-01 00:00:00 2021-06-01 00:00:00 Refill Fely [facility] 1.2.840.114 350.1.13.10 4.2.7.2.686 [id number] 134 [id number] [facility] 2021-05-31 00:00:00 2021-05-31 00:00:00 (INJ) Injection STLMLC STLMLC [id number] [facility] 2021-05-30 15:00:00 2021-05-30 15:00:00 Outpatient OTONIEL BASILIO [facility] [id number] [facility] 2021-05-28 07:05:00 2021-05-28 08:35:00 Outpatient Briseida CHANG [facility] [id number] [facility] 2021-05-28 07:05:00 2021-05-28 08:35:00 [facility] [place] 1.2.840.114 350.1.13.10 4.2.7.2.686 [id number] [facility] 2021-05-28 07:49:00 2021-05-28 08:09:00 [facility] [place] 1.2.840.114 350.1.13.10 4.2.7.2.686 [id number] [facility] 2021-05-28 00:00:00 2021-05-28 00:00:00 Orders Only Doctor Unassigned, [place] [facility] 1.2.840.114 350.1.13.10 4.2.7.2.686 [id number] [id number] [facility] 2021-05-25 08:45:00 2021-05-25 08:45:00 [facility] [id number] [facility] 2021-05-24 00:00:00 2021-05-24 00:00:00 OFFICE VISIT ESTAB PT LEVEL 4 STLMLC STLMLC [id number] [facility] 2021-05-23 11:13:53 2021-05-23 11:28:53 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, 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 [facility] 1.2.840.114 350.1.13.10 4.2.7.2.686 [id number] [facility] 2021-05-23 11:15:00 2021-05-23 11:15:00 Outpatient Briseida CHANG TYLER [facility] [id number] [facility] 2021-05-21 11:45:00 2021-05-21 11:45:00 Outpatient Briseida CHANG [facility] [id number] [facility] 2021-05-21 00:00:00 2021-05-21 00:00:00 Orders Only Doctor Unassigned, [place] [facility] 1.2840.114 350.1.13.10 4.2.7.2.686 [id number] [id number] [facility] 2021-05-09 09:30:10 2021-05-09 23:59:00 Outpatient Briseida CHANG [facility] [id number] [facility] 2021-05-09 09:30:10 2021-05-09 23:59:00 Hospital Encounter Tyler Chang [facility] 1..840.114 350.1.13.10 4.2.7.2.686 [id number] [facility] 2021-05-09 00:00:00 2021-05-09 00:00:00 Outpatient Briseida CHANG [facility] [id number] [facility] 2021-05-09 00:00:00 2021-05-09 00:00:00 Orders Only Doctor Unassigned, [place] [facility] 1..840.114 350.1.13.10 4.2.7.2.686 [id number] [id number] [facility] 2021-05-09 00:00:00 2021-05-09 00:00:00 Case Management Otoniel Geiger [facility] 1..840.114 350.1.13.10 4.2.7.2.686 [id number] [facility] 2021-05-08 16:00:00 2021-05-08 14:47:53 Outpatient Briseida FELY [facility] [id number] [facility] 2021-05-08 16:00:00 2021-05-08 14:47:53 Outpatient R OTONIEL GEIGER [facility] [id number] [facility] 2021-05-08 14:16:31 2021-05-08 14:47:53 Office Visit Otoniel Geiger [facility] 1.114 350.1.13.10 4.2.7.2.686 [id number] [facility] 2021-05-08 13:30:00 2021-05-08 13:30:00 Outpatient R SARA JOHNSON [facility] [id number] [facility] 2021-04-23 00:00:00 2021-04-23 00:00:00 ([place]) Nurse Visit STLC STLC [id number] [facility] 2021-04-20 00:00:00 2021-04-20 00:00:00 Refill [facility] 1.84.114 350.1.13.10 4.2.7.2.686 [id number] [facility] 2021-04-16 00:00:00 2021-04-16 00:00:00 (TEL) STLMLC STLC [id number] [facility] 2021-04-11 10:30:00 2021-04-11 10:30:00 Outpatient R [facility] [id number] [facility] 2021-03-28 14:58:27 2021-03-28 23:59:00 [facility] Teddy Sweeney [facility] 1.114 350.1.13.10 4.2.7.2.686 [id number] [facility] 2021-03-28 13:28:14 2021-03-28 14:39:38 [facility] 1.2.114 350.1.13.10 4.2.7.2.686 [id number] [facility] 2021-03-28 13:30:00 2021-03-28 13:30:00 Outpatient Briseida GEIGER OTONIEL [facility] [id number] [facility] 2021-03-28 00:00:00 2021-03-28 00:00:00 Orders Only Doctor Unassigned, [place] [facility] 1..840.114 350.1.13.10 4.2.7.2.686 [id number] [id number] [facility] 2021-03-23 00:00:00 2021-03-23 00:00:00 OFFICE VISIT ESTAB PT LEVEL 2 STLMLC STLMLC [id number] [facility] 2021-03-22 11:00:00 2021-03-22 11:00:00 Outpatient MISTY MARTINEZ [facility] [id number] [facility] 2021-03-22 00:00:00 2021-03-22 00:00:00 (TEL) STLMLC STLMLC [id number] [facility] 2021-03-21 00:00:00 2021-03-21 00:00:00 Telephone Fely [facility] 1.2.840.114 350.1.13.10 4.2.7.2.686 [id number] 134 [id number] [facility] 2021-03-20 09:38:10 2021-03-20 09:53:10 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, 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 Fely [facility] 1.2.840.114 350.1.13.10 4.2.7.2.686 [id number] [facility] 2021-03-20 09:30:00 2021-03-20 09:30:00 Outpatient Briseida GEIGER [facility] [id number] [facility] 2021-03-19 00:00:00 2021-03-19 00:00:00 Outpatient R MICHELLEOTONIEL CORONA [facility] [id number] [facility] 2021-03-19 00:00:00 2021-03-19 00:00:00 Outpatient R MICHELLEOTONIEL CORONA [facility] [id number] [facility] 2021-03-19 00:00:00 2021-03-19 00:00:00 Telephone Otoniel Geiger [facility] 1..840.114 350.1.13.10 4.2.7.2.686 [id number] [facility] 2021-03-16 00:00:00 2021-03-16 00:00:00 [facility] 1.840.114 350.1.13.10 4.2.7.2.686 [id number] 134 [id number] [facility] 2021-03-15 00:00:00 2021-03-15 00:00:00 Telephone Otoniel Geiger [facility] 1.2840.114 350.1.13.10 4.2.7.2.686 [id number] [facility] 2021-03-13 15:02:56 2021-03-13 15:45:17 Office Visit MichelleOtoniel corona [facility] 1.2840.114 350.1.13.10 4.2.7.2.686 [id number] 134 [id number] [facility] 2021-03-13 15:30:00 2021-03-13 15:30:00 Outpatient R MICHELLETEVINPALOMOOTONIEL [facility] [id number] [facility] 2021-03-08 00:00:00 2021-03-08 00:00:00 Orders Only Doctor Unassigned, [place] [facility] 1.0.114 350.1.13.10 4.2.7.2.686 [id number] [id number] [facility] 2021-03-08 00:00:00 2021-03-08 00:00:00 Orders Only Doctor Unassigned, [place] [facility] 1.2840.114 350.1.13.10 4.2.7.2.686 [id number] [id number] [facility] 2021-02-22 00:00:00 2021-02-22 00:00:00 OFFICE VISIT ESTAB PT LEVEL 4 STLMLC STLMLC [id number] [facility] 2021-02-15 00:00:00 2021-02-15 00:00:00 OFFICE VISIT ESTAB PT LEVEL 1 STLMLC STLMLC [id number] [facility] 2021-02-12 00:00:00 2021-02-12 00:00:00 Outpatient MISTY MARTINEZ [facility] [id number] [facility] 2021-02-08 11:00:00 2021-02-08 12:44:31 Outpatient MISTY MARTINEZ [facility] [id number] [facility] 2021-02-08 10:51:46 2021-02-08 12:44:31 Office Visit Misty Aguirre, [place]ão [place] Procedure [facility] 1.0.114 350.1.13.10 4.2.7.2.686 [id number] [facility] 2021-02-08 11:00:00 2021-02-08 11:00:00 Outpatient MISTY MARTINEZ [facility] [id number] [facility] 2021-02-08 00:00:00 2021-02-08 00:00:00 Orders Only Doctor Unassigned, [place] [facility] 1.2840.114 350.1.13.10 4.2.7.2.686 [id number] [id number] [facility] 2021-02-06 15:15:00 2021-02-06 17:01:55 Outpatient R MISTY AGUIRRE [facility] [id number] [facility] 2021-02-06 14:34:08 2021-02-06 17:01:55 Office Visit Misty Aguirre [facility] 1.2.840.114 350.1.13.10 4.2.7.2.686 [id number] [facility] 2021-02-06 15:15:00 2021-02-06 15:15:00 Outpatient R MISTY AGUIRRE [facility] [id number] [facility] 2021-01-25 00:00:00 2021-01-25 00:00:00 OFFICE VISIT ESTAB PT LEVEL 4 STLMLC STLMLC [id number] [facility] 2021-01-02 00:00:00 2021-01-02 00:00:00 Orders Only Doctor Unassigned, [place] [facility] 1.2.840.114 350.1.13.10 4.2.7.2.686 [id number] [id number] [facility] 2021-01-02 00:00:00 2021-01-02 00:00:00 OFFICE VISIT ESTAB PT LEVEL 1 STLMLC STLMLC [id number] [facility] 2021-01-02 00:00:00 2021-01-02 00:00:00 (TEL) STLMLC STLMLC [id number] [facility] 2021-01-01 00:00:00 2021-01-01 00:00:00 (TEL) STLMLC STLMLC [id number] [facility] 2021-01-01 00:00:00 2021-01-01 00:00:00 (TEL) STLMLC STLMLC [id number] [facility] 2020-12-28 00:00:00 2020-12-28 00:00:00 (TEL) STLMLC STLMLC [id number] [facility] 2020-12-27 00:00:00 2020-12-27 00:00:00 (TEL) STLMLC STLMLC [id number] [facility] 2020-12-26 00:00:00 2020-12-26 00:00:00 OFFICE VISIT ESTAB PT LEVEL 3 STLMLC STLMLC [id number] [facility] 2020-12-21 00:00:00 2020-12-21 00:00:00 OFFICE VISIT ESTAB PT LEVEL 1 STLMLC STLMLC [id number] [facility] 2020-12-20 00:00:00 2020-12-20 00:00:00 (TEL) STLMLC STLMLC [id number] [facility] 2020-12-08 00:00:00 2020-12-08 00:00:00 Orders Only Doctor Unassigned, [place] [facility] 1.2.840.114 350.1.13.10 4.2.7.2.686 [id number] [id number] [facility] 2020-12-05 00:00:00 2020-12-05 00:00:00 OFFICE VISIT ESTAB PT LEVEL 1 STLMLC STLMLC [id number] [facility] 2020-12-04 00:00:00 2020-12-04 00:00:00 (TEL) STLMLC STLMLC [id number] [facility] 2020-10-30 07:18:00 2020-10-30 08:57:00 Hospital Encounter [facility] 1.2.840.114 350.1.13.10 4.2.7.2.686 [id number] [facility] 2020-10-30 07:51:00 2020-10-30 08:14:00 Surgery [facility] 1.2.840.114 350.1.13.10 4.2.7.2.686 [id number] [facility] 2020-10-30 00:00:00 2020-10-30 00:00:00 Orders Only Doctor Unassigned, [place] [facility] 1.2840.114 350.1.13.10 4.2.7.2.686 [id number] [id number] [facility] 2020-10-27 11:16:12 2020-10-27 11:31:12 Laboratory Only Only, Adc Test Bernardo [facility] 1.2840.114 350.1.13.10 4.2.7.2.686 [id number] [facility] 2020-10-27 08:45:00 2020-10-27 08:45:00 Outpatient R BERNARDO [facility] [id number] [facility] 2020-10-27 00:00:00 2020-10-27 00:00:00 Orders Only Doctor Unassigned, [place] [facility] 1.2840.114 350.1.13.10 4.2.7.2.686 [id number] [id number] [facility] 2020-10-26 00:00:00 2020-10-26 00:00:00 OFFICE VISIT ESTAB PT LEVEL 4 STLC STLC [id number] [facility] 2020-10-20 00:00:00 2020-10-20 00:00:00 (TEL) STLC STLMLC [id number] [facility] 2020-10-18 00:00:00 2020-10-18 00:00:00 (TEL) STLC STLC [id number] [facility] 2020-10-16 06:39:00 2020-10-16 08:43:00 [facility] 1.2840.114 350.1.13.10 4.2.7.2.686 [id number] [facility] 2020-10-16 06:39:00 2020-10-16 08:43:00 [facility] 1.2.840.114 350.1.13.10 4.2.7.2.686 [id number] 2020-10-16 07:51:00 2020-10-16 08:13:00 [facility] 1.2.840.114 350.1.13.10 4.2.7.2.686 [id number] [facility] 2020-10-16 07:51:00 2020-10-16 08:13:00 [facility] 1.2.840.114 350.1.13.10 4.2.7.2.686 [id number] 2020-10-16 00:00:00 2020-10-16 00:00:00 Orders Only Doctor Unassigned, [place] [facility] 1.2.840.114 350.1.13.10 4.2.7.2.686 [id number] [id number] [facility] 2020-10-16 00:00:00 2020-10-16 00:00:00 Orders Only Doctor Unassigned, [place] [facility] 1.2.840.114 350.1.13.10 4.2.7.2.686 [id number] [id number] 2020-10-13 10:15:00 2020-10-13 10:15:00 Outpatient R TYLER CHANG [facility] [id number] [facility] 2020-10-13 09:49:03 2020-10-13 10:04:03 Laboratory Only Only, Adc Test Bernardo [facility] 1.2.840.114 350.1.13.10 4.2.7.2.686 [id number] [facility] 2020-10-13 09:49:03 2020-10-13 10:04:03 Laboratory Only Only, Adc Test [facility] 1.2.840.114 350.1.13.10 4.2.7.2.686 [id number] 2020-10-13 00:00:00 2020-10-13 00:00:00 Orders Only Doctor Unassigned, [place] [facility] 1.2.840.114 350.1.13.10 4.2.7.2.686 [id number] [id number] [facility] 2020-10-13 00:00:00 2020-10-13 00:00:00 Orders Only Doctor Unassigned, [place] [facility] 1.2.840.114 350.1.13.10 4.2.7.2.686 [id number] [id number] 2020-10-05 00:00:00 2020-10-05 00:00:00 (TEL) STLMLC STLMLC [id number] [facility] 2020-10-03 00:00:00 2020-10-03 00:00:00 (TEL) STLMLC STLMLC [id number] [facility] 2020-10-02 06:53:00 2020-10-02 09:27:00 Hospital Encounter Tyler Chang [facility] 1.2.840.114 350.1.13.10 4.2.7.2.686 [id number] [facility] 2020-10-02 06:53:00 2020-10-02 09:27:00 Hospital Encounter Tyler Chang [facility] 1.2.840.114 350.1.13.10 4.2.7.2.686 [id number] 2020-10-02 07:51:00 2020-10-02 08:16:00 Surgery Tyler Chang [facility] [place] 1.2.840.114 350.1.13.10 4.2.7.2.686 [id number] [id number] [facility] 2020-10-02 07:51:00 2020-10-02 08:16:00 Surgery [facility] 1.2.840.114 350.1.13.10 4.2.7.2.686 [id number] 2020-10-02 00:00:00 2020-10-02 00:00:00 Orders Only Doctor Unassigned, [place] [facility] 1.2.840.114 350.1.13.10 4.2.7.2.686 [id number] [id number] [facility] 2020-10-02 00:00:00 2020-10-02 00:00:00 Orders Only Doctor Unassigned, [place] [facility] 1.2.840.114 350.1.13.10 4.2.7.2.686 [id number] [id number] 2020-09-29 10:08:41 2020-09-29 10:23:41 Laboratory Only Only, Adc Test Tyler Chang [facility] 1.2.840.114 350.1.13.10 4.2.7.2.686 [id number] [facility] 2020-09-29 10:08:41 2020-09-29 10:23:41 Laboratory Only Only, Adc Test [facility] 1.2.840.114 350.1.13.10 4.2.7.2.686 [id number] 2020-09-29 10:15:00 2020-09-29 10:15:00 Outpatient R TYLER CHANG [facility] [id number] [facility] 2020-09-27 14:35:00 2020-09-27 14:50:00 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, 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 Tyler Chang [facility] 1.2.840.114 350.1.13.10 4.2.7.2.686 [id number] [facility] 2020-09-27 14:35:00 2020-09-27 14:50:00 Laborer Tin Can Visit Candace, [facility] Lab Main [facility] 1.2.840.114 350.1.13.10 4.2.7.2.686 [id number] 2020-09-27 14:45:00 2020-09-27 14:45:00 Outpatient R [facility] [id number] [facility] 2020-09-27 00:00:00 2020-09-27 00:00:00 Orders Only Doctor Unassigned, [place] [facility] 1.2840.114 350.1.13.10 4.2.7.2.686 [id number] [id number] [facility] 2020-09-27 00:00:00 2020-09-27 00:00:00 Orders Only Doctor Unassigned, [place] [facility] 1.2840.114 350.1.13.10 4.2.7.2.686 [id number] [id number] 2020-09-17 12:10:00 2020-09-17 12:10:00 Outpatient [facility] [id number] [facility] 2020-08-20 11:35:00 2020-08-20 11:35:00 Outpatient [facility] [id number] [facility] 2020-07-07 10:30:00 2020-07-07 10:45:00 Office Visit Angle Elizabeth [facility] 1.2.840.114 350.1.13.10 4.2.7.2.686 [id number] [facility] 2020-07-07 10:30:00 2020-07-07 10:45:00 Office Visit Angle Elizabeth [facility] 1.2.840.114 350.1.13.10 4.2.7.2.686 [id number] 2020-07-07 10:30:00 2020-07-07 10:30:00 Outpatient ANGLE CONRAD [facility] [id number] [facility] 2020-06-27 00:00:00 2020-06-27 00:00:00 (TEL) STLMLC STLMLC [id number] [facility] 2020-06-14 11:00:00 2020-06-14 11:00:00 Outpatient R TANG PIERCE [facility] [id number] [facility] 2020-06-02 10:20:29 2020-06-02 10:49:49 Office Visit Angle Elizabeth [facility] 1.2.840.114 350.1.13.10 4.2.7.2.686 [id number] [facility] 2020-06-02 10:30:00 2020-06-02 10:30:00 Outpatient ANGLE CONRAD [facility] [id number] [facility] 2020-05-29 00:00:00 2020-05-29 00:00:00 (TEL) STLMLC STLMLC [id number] [facility] 2020-05-24 10:00:00 2020-05-24 10:00:00 Outpatient R ALBERT LEPE [facility] [id number] [facility] 2020-05-22 00:00:00 2020-05-22 00:00:00 Orders Only Doctor Unassigned, [place] [facility] 1.2.840.114 350.1.13.10 4.2.7.2.686 [id number] [id number] [facility] 2020-05-17 00:00:00 2020-05-17 00:00:00 (TEL) STLMLC STLMLC [id number] [facility] 2020-05-16 00:00:00 2020-05-16 00:00:00 OFFICE VISIT ESTAB PT LEVEL 4 STLMLC STLMLC [id number] [facility] 2020-05-08 13:00:00 2020-05-08 13:00:00 Outpatient ALBERT MICHELLE [facility] [id number] [facility] 2020-04-27 00:00:00 2020-04-27 00:00:00 OFFICE VISIT ESTAB PT LEVEL 4 STLMLC STLMLC [id number] [facility] 2020-04-26 00:00:00 2020-04-26 00:00:00 (TEL) STLMLC STLMLC [id number] [facility] 2020-04-13 00:00:00 2020-04-13 00:00:00 OFFICE VISIT ESTAB PT LEVEL 4 STLMLC STLMLC [id number] [facility] 2020-04-07 10:16:43 2020-04-07 10:31:43 Office Visit Tang Pierce [facility] 1.2.840.114 350.1.13.10 4.2.7.2.686 [id number] [facility] 2020-04-07 10:15:00 2020-04-07 10:15:00 Outpatient TANG CRUZ [facility] [id number] [facility] 2020-04-06 00:00:00 2020-04-06 00:00:00 (TEL) STLMLC STLMLC [id number] [facility] 2020-03-30 10:00:00 2020-03-30 10:00:00 Outpatient BENITEZ SANDERS [facility] [id number] [facility] 2020-03-30 00:00:00 2020-03-30 00:00:00 OFFICE VISIT ESTAB PT LEVEL 2 STLMLC STLMLC [id number] [facility] 2020-03-28 00:00:00 2020-03-28 00:00:00 OFFICE VISIT EST PT LEVEL 3 STLMLC STLMLC [id number] [facility] 2020-03-23 00:00:00 2020-03-23 00:00:00 (TEL) STLMLC STLMLC [id number] [facility] 2020-03-16 14:15:00 2020-03-16 14:15:00 Outpatient TANG CRUZ [facility] [id number] [facility] 2020-03-16 00:00:00 2020-03-16 00:00:00 OFFICE VISIT ESTAB PT LEVEL 4 STLMLC STLMLC [id number] [facility] 2020-03-09 10:30:00 2020-03-09 10:30:00 Outpatient TANG CRUZ [facility] [id number] [facility] 2020-03-06 07:43:00 2020-03-06 13:03:00 Hospital Encounter Tyler Chang [facility] 1.2.840.114 350.1.13.10 4.2.7.2.686 [id number] [facility] 2020-03-03 09:13:26 2020-03-03 09:28:26 Laboratory Only Only, Adc Test Jules Gordon [facility] 1.2.840.114 350.1.13.10 4.2.7.2.686 [id number] [facility] 2020-03-03 09:00:00 2020-03-03 09:00:00 Outpatient Briseida GORDON JULES [facility] [id number] [facility] 2020-03-02 16:00:00 2020-03-02 16:00:00 [facility] [id number] [facility] 2020-03-01 16:58:00 2020-03-01 16:58:00 [facility] [id number] [facility] 2020-02-29 09:32:00 2020-02-29 09:32:00 [facility] [facility] [id number] [facility] 2020-02-29 00:00:00 2020-02-29 00:00:00 Orders Only Doctor Unassigned, [place] [facility] 1..840.114 350.1.13.10 4.2.7.2.686 [id number] [facility] 2020-02-19 12:20:00 2020-02-19 12:20:00 Outpatient R [facility] [id number] [facility] 2020-02-19 11:43:00 2020-02-19 11:43:00 [facility] [id number] [facility] 2020-02-18 00:00:00 2020-02-18 00:00:00 OFFICE VISIT ESTAB PT LEVEL 3 [facility] [id number] [facility] 2020-02-17 11:30:00 2020-02-17 11:30:00 [facility] [id number] [facility] 2020-02-10 17:00:00 2020-02-10 17:00:00 Outpatient R GEREMIAS CRUZ [facility] [id number] [facility] 2020-02-07 10:00:00 2020-02-07 10:00:00 Outpatient BRAEDEN BROUSSARD [facility] [id number] [facility] 2020-01-13 09:45:00 2020-01-13 09:45:00 Outpatient CATALINA MANJARREZ [facility] [id number] [facility] 2020-01-10 07:03:50 2020-01-10 09:20:00 Hospital Encounter Tyler Chang [facility] 1..840.114 350.1.13.10 4.2.7.2.686 [id number] [facility] 2020-01-10 00:00:00 2020-01-10 00:00:00 Orders Only Doctor Unassigned, [place] [facility] 1.114 350.1.13.10 4.2.7.2.686 [id number] [facility] 2020-01-07 08:46:30 2020-01-07 09:01:30 Laboratory Only Only, Adc Test Gilson Changt [facility] 1.114 350.1.13.10 4.2.7.2.686 [id number] [facility] 2020-01-07 08:30:00 2020-01-07 08:30:00 Outpatient Briseida CHANGTREMAINETYLER [facility] [id number] [facility] 2020-01-07 00:00:00 2020-01-07 00:00:00 Orders Only Doctor Unassigned, [place] [facility] 1.114 350.1.13.10 4.2.7.2.686 [id number] [facility] 2019-12-30 11:00:00 2019-12-30 11:00:00 Outpatient CATALINA MANJARREZ [facility] [id number] [facility] 2019-12-28 11:00:00 2019-12-28 11:00:00 Outpatient DENNYS STUART [facility] [id number] [facility] 2019-12-24 09:32:00 2019-12-24 09:32:00 [facility] [place] [facility] [id number] [facility] [facility] 2019-12-22 13:50:17 2019-12-22 14:05:17 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, 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 Bernardo, Tyler [facility] 1..114 350.1.13.10 4.2.7.2.686 [id number] [facility] 2019-12-22 14:00:00 2019-12-22 14:00:00 Outpatient Briseida RAYMONDBERNARDO, TYLER [facility] [id number] [facility] 2019-12-22 00:00:00 2019-12-22 00:00:00 Orders Only Doctor Unassigned, [place] [facility] 1.2.840.114 350.1.13.10 4.2.7.2.686 [id number] [facility] 2019-12-13 11:45:00 2019-12-13 11:45:[address] [facility] [address] [facility] [id number] [facility] 2019-12-01 16:54:00 2019-12-01 16:54:00 [facility] [address] [facility] [id number] [facility] 2019-11-25 16:55:00 2019-11-25 16:55:00 [facility] [address] [facility] [id number] [facility] 2019-11-22 11:38:00 2019-11-22 11:38:00 [facility] [address] [facility] [id number] [facility] 2019-11-19 16:25:00 2019-11-19 16:25:00 [facility] [id number] [facility] 2019-11-19 09:15:00 2019-11-19 09:15:00 Outpatient CATALINA MANJARREZ [facility] [id number] [facility] 2019-11-18 16:23:00 2019-11-18 16:23:00 [facility] [address] [facility] [id number] [facility] 2019-11-18 10:45:00 2019-11-18 10:45:00 [facility] [address] [facility] [id number] [facility] 2019-11-08 14:04:00 2019-11-08 14:04:[address] [facility] [address] [facility] [address] [facility] [id number] [facility] 2019-11-05 14:36:00 2019-11-05 14:36:[address] [facility] [address] [facility] [address] [facility] [id number] [facility] 2019-11-01 11:35:00 2019-11-01 11:35:00 [facility] [address] [facility] [address] [facility] [id number] [facility] 2019-10-27 13:30:00 2019-10-27 13:30:00 [facility] [address] [facility] [address] [facility] [id number] [facility] 2019-10-26 08:59:00 2019-10-26 08:59:00 [facility] [address] [facility] [address] [facility] [id number] [facility] 2019-10-25 08:37:00 2019-10-25 08:37:00 [facility] [address] [facility] [address] [facility] [id number] [facility] 2019-10-20 00:00:00 2019-10-20 00:00:00 Telephone [facility] 1.2.840.114 350.1.13.10 4.2.7.2.686 [id number] [facility] 2019-10-14 15:00:00 2019-10-14 15:00:00 [facility] [address] [facility] [address] [facility] [id number] [facility] 2019-10-12 09:50:00 2019-10-12 09:50:00 [facility] [address] [facility] [place] [address] [facility] [id number] [facility] 2019-10-07 13:00:00 2019-10-07 13:00:00 Outpatient R BRAEDEN DELONG [facility] [id number] [facility] 2019-10-05 00:00:00 2019-10-05 00:00:00 [facility] 1.2.840.114 350.1.13.10 4.2.7.2.686 [id number] [facility] 2019-10-04 10:45:00 2019-10-04 10:45:00 [facility] [id number] [facility] 2019-10-04 08:05:56 2019-10-04 08:20:56 Telemedici ne [facility] 1.2.840.114 350.1.13.10 4.2.7.2.686 [id number] [facility] 2019-10-04 00:00:00 2019-10-04 00:00:00 [facility] 1.2.840.114 350.1.13.10 4.2.7.2.686 [id number] [facility] 2019-09-30 00:00:00 2019-09-30 00:00:00 [facility] 1.2.840.114 350.1.13.10 4.2.7.2.686 [id number] [facility] 2019-09-28 00:00:00 2019-09-28 00:00:00 [facility] 1.2.840.114 350.1.13.10 4.2.7.2.686 [id number] [facility] 2019-09-28 00:00:00 2019-09-28 00:00:00 [facility] 1.2.840.114 350.1.13.10 4.2.7.2.686 [id number] [facility] 2019-09-27 00:00:00 2019-09-27 00:00:00 Telephone Balje[facility] Building 1.2.840.114 350.1.13.10 4.2.7.2.686 [id number] [facility] 2019-09-23 11:55:19 2019-09-23 17:04:00 Emergency Umair Arre[facility] 1.2840.114 350.1.13.10 4.2.7.2.686 [id number] [facility] 2019-09-23 11:55:19 2019-09-23 17:04:00 Emergency X UMAIR ARREAGA [facility] E[facility] [id number] [facility] 2019-09-23 06:35:00 2019-09-23 11:37:00 Hospital Encounter Balje[facility] [place] 1.20.114 350.1.13.10 4.2.7.2.686 [id number] [facility] 2019-09-23 06:35:00 2019-09-23 11:37:00 Outpatient R BALJEET [facility] K[facility] [id number] [facility] 2019-09-23 07:37:00 2019-09-23 09:11:00 Anesthesia Tang Messina Stacey [facility] [place] 1.2840.114 350.1.13.10 4.2.7.2.686 [id number] [facility] 2019-09-23 00:00:00 2019-09-23 00:00:00 Orders Only Doctor Unassigned, [place] [facility] 1.2.840.114 350.1.13.10 4.2.7.2.686 [id number] [facility] 2019-09-23 00:00:00 2019-09-23 00:00:00 Telephone [facility] 1.2.840.114 350.1.13.10 4.2.7.2.686 [id number] [facility] 2019-09-20 00:00:00 2019-09-20 00:00:00 Telephone [facility] 1.2.840.114 350.1.13.10 4.2.7.2.686 [id number] [facility] 2019-09-19 00:00:00 2019-09-19 00:00:00 Telephone [facility] Profess[facility] 1.2.840.114 350.1.13.10 4.2.7.2.686 [id number] [facility] 2019-09-17 08:05:00 2019-09-17 08:05:00 Outpatient [facility] [facility] [id number] [facility] 2019-09-16 06:36:00 2019-09-16 11:50:00 [facility] 1.2.840.114 350.1.13.10 4.2.7.2.686 [id number] [facility] 2019-09-16 06:36:00 2019-09-16 11:50:00 Outpatient R [facility] KIER[facility] [id number] [facility] 2019-09-16 00:00:00 2019-09-16 00:00:00 Orders Only Doctor Unassigned, [place] [facility] 1.2.840.114 350.1.13.10 4.2.7.2.686 [id number] [id number] [facility] 2019-09-16 00:00:00 2019-09-16 00:00:00 [facility] 1.2.840.114 350.1.13.10 4.2.7.2.686 [id number] [id number] [facility] 2019-09-16 00:00:00 2019-09-16 00:00:00 [facility] 1.2.840.114 350.1.13.10 4.2.7.2.686 [id number] [facility] 2019-09-15 00:00:00 2019-09-15 00:00:00 Telephone Baljeet [facility] Building 1.2.840.114 350.1.13.10 4.2.7.2.686 [id number] [facility] 2019-09-13 13:33:09 2019-09-13 13:48:09 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, 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 Baljeet [facility] Building 1.2.840.114 350.1.13.10 4.2.7.2.686 [id number] [facility] 2019-09-13 08:41:39 2019-09-13 08:56:39 Telemedici ne Visit Baljeet [facility] Building 1.2.840.114 350.1.13.10 4.2.7.2.686 [id number] [facility] 2019-09-13 08:30:00 2019-09-13 08:30:00 [facility] [id number] [facility] 2019-09-13 00:00:00 2019-09-13 00:00:00 Prep For Surgery Livia Gallardo [facility] Building 1.2.840.114 350.1.13.10 4.2.7.2.686 [id number] [facility] 2019-09-10 07:57:26 2019-09-12 14:20:00 Outpatient AMALIA WORKMAN [facility] [id number] [facility] 2019-09-10 07:57:26 2019-09-12 14:20:00 Emergency EvFawad arias, Zee Contreras, Amalia [facility] 1.0.114 350.1.13.10 4.2.7.2.686 [id number] [facility] 2019-08-27 00:00:00 2019-08-27 00:00:00 OFFICE VISIT ESTAB PT LEVEL 4 [facility] [place] [facility] [id number] [facility] 2019-08-23 07:14:00 2019-08-23 09:35:00 Outpatient Briseida [facility] [id number] [facility] 2019-08-23 07:14:00 2019-08-23 09:35:00 Hospital Encounter Tyler Chang [facility] 1.0.114 350.1.13.10 4.2.7.2.686 [id number] [facility] 2019-08-23 08:23:00 2019-08-23 08:35:00 Anesthesia Minerva Ba Leonard [facility] 1.0.114 350.1.13.10 4.2.7.2.686 [id number] [facility] 2019-08-23 07:14:00 2019-08-23 07:14:00 Outpatient R BERNARDO [facility] [id number] [facility] 2019-08-23 00:00:00 2019-08-23 00:00:00 Orders Only Doctor Unassigned, [place] [facility] 1.0.114 350.1.13.10 4.2.7.2.686 [id number] [facility] 2019-08-19 11:00:00 2019-08-19 11:00:00 Outpatient [facility] [id number] [facility] 2019-08-19 00:00:00 2019-08-19 00:00:00 Orders Only Doctor Unassigned, [place] [facility] 1.2.840.114 350.1.13.10 4.2.7.2.686 [id number] [facility] 2019-08-05 09:15:00 2019-08-05 09:15:00 Outpatient [facility] [id number] [facility] 2019-08-03 14:40:00 2019-08-03 14:40:[address] [facility] [id number] [facility] 2019-08-02 07:03:40 2019-08-02 09:10:00 Outpatient Briseida TYLER CHANG [facility] K[facility] [id number] [facility] 2019-08-02 07:03:40 2019-08-02 09:10:00 Hospital Encounter Tyler Chang [facility] 1.2.840.114 350.1.13.10 4.2.7.2.686 [id number] [facility] 2019-08-02 00:00:00 2019-08-02 00:00:00 Orders Only Doctor Unassigned, [place] [facility] 1.2.840.114 350.1.13.10 4.2.7.2.686 [id number] [facility] 2019-07-29 13:23:00 2019-07-29 13:23:00 Outpatient [facility] [id number] [facility] 2019-07-28 14:09:44 2019-07-28 14:24:44 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, 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 Tyler Chang [facility] 1.2.840.114 350.1.13.10 4.2.7.2.686 [id number] [facility] 2019-07-28 00:00:00 2019-07-28 00:00:00 Orders Only Doctor Unassigned, [place] [address].2.840.114 350.1.13.10 4.2.7.2.686 [id number] [id number] [facility] 2019-07-27 00:00:00 2019-07-27 00:00:00 Orders Only Doctor Unassigned, [place] [address].2.840.114 350.1.13.10 4.2.7.2.686 [id number] [facility] 2019-07-19 13:59:00 2019-07-19 13:59:00 [address] [facility] [address] [facility] [place] [facility] [id number] [facility] 2019-07-14 13:18:00 2019-07-14 13:18:00 [facility] [address] [facility] [id number] [facility] 2019-07-06 10:00:00 2019-07-06 10:00:00 Out[facility] [address] [facility] [place] [facility] [id number] [facility] 2019-05-17 13:30:00 2019-05-17 13:30:00 [facility] [address] [facility] [place] [facility] [id number] [facility] 2019-03-30 15:00:00 2019-03-30 15:00:00 [facility] [place] [facility] [id number] [facility] 2019-03-23 08:47:00 2019-03-23 08:47:00 [facility] [place] [facility] [id number] [facility] 2019-03-22 16:57:00 2019-03-22 16:57:00 Outpatient [facility] Medicine [facility] [id number] [facility] 2019-03-17 09:45:00 2019-03-17 09:45:00 Outpatient [facility] [id number] [facility] 2019-03-04 00:00:00 2019-03-04 00:00:00 OFFICE VISIT ESTAB PT LEVEL 4 [facility] [place] [facility] [id number] [facility] 2019-03-01 11:00:00 2019-03-01 11:00:00 Outpatient [facility] Medicine [facility] [id number] [facility] 2019-02-23 13:15:00 2019-02-23 13:15:00 Outpatient [facility] [id number] [facility] 2019-02-17 00:00:00 2019-02-17 00:00:00 Prep For Surgery Livia Gallardo [address]840.114 350.1.13.10 4.2.7.2.686 [id number] [facility] 2019-02-16 15:16:30 2019-02-16 15:46:30 Office Visit Ashley Valdez [address]840.114 350.1.13.10 4.2.7.2.686 [id number] [facility] 2019-02-15 09:54:00 2019-02-15 09:54:00 [facility] [place] [facility] [id number] [facility] 2019-02-08 00:00:00 2019-02-08 00:00:00 OFFICE VISIT ESTAB PT LEVEL 3 [facility] [place] [facility] [id number] [facility] 2019-02-01 14:15:00 2019-02-01 14:15:00 [facility] [place] [facility] [id number] [facility] 2019-01-27 00:00:00 2019-01-27 00:00:00 OFFICE VISIT ESTAB PT LEVEL [address] [facility] [place] [address] [facility] [id number] [facility] 2019-01-15 09:51:11 2019-01-15 10:51:11 Office Visit Catalina [facility] [place] [facility] 1.2.840.114 350.1.13.10 4.2.7.2.686 [id number] [facility] 2018-12-08 13:00:00 2018-12-08 13:00:00 [facility] [facility] [address] [facility] [place] [address] [facility] [id number] [facility] 2018-12-07 16:17:00 2018-12-07 16:17:00 [facility] [address] [facility] [place] [address] [facility] [id number] [facility] 2018-12-03 09:15:00 2018-12-03 09:15:00 [facility] [address] [facility] [place] [address] [facility] [id number] [facility] 2018-10-19 16:30:00 2018-10-19 16:30:00 [facility] [address] [facility] [place] [address] [facility] [id number] [facility] 2018-10-01 13:52:00 2018-10-01 13:52:00 [facility] [address] [facility] [place] [address] [facility] [id number] [facility] 2018-09-14 08:34:00 2018-09-14 08:34:00 Out[facility] [address] [facility] [place] [address] [facility] [id number] [facility] 2018-09-10 14:45:00 2018-09-10 14:45:00 Out[facility] [address] [facility] [place] [address] [facility] [id number] [facility] 2018-08-26 16:26:00 2018-08-26 16:26:00 [facility] [address] [facility] [place] [address] [facility] [id number] [facility] 2018-08-25 10:00:00 2018-08-25 10:00:00 [facility] [address] [facility] [place] [address] [facility] [id number] [facility] 2018-08-19 08:22:00 2018-08-19 08:22:00 Out[facility] [address] [facility] [place] [address] [facility] [id number] [facility] 2018-07-16 13:00:00 2018-07-16 13:00:00 [facility] [address] [facility] [place] [address] [facility] [id number] [facility] 2018-03-25 10:15:00 2018-03-25 10:15:00 Out[facility] [address] [facility] [place] [address] [facility] [id number] [facility] 2018-02-03 09:02:00 2018-02-03 09:02:00 Out[facility] [address] [facility] [place] [address] [facility] [id number] [facility] 2018-01-23 10:00:00 2018-01-23 10:00:00 [facility] [address] [facility] [place] [address] [facility] [id number] [facility] 2017-12-23 10:30:00 2017-12-23 10:30:00 [facility] [address] [facility] [place] [address] [facility] [id number] [facility] 2017-12-16 15:15:00 2017-12-16 15:15:00 [facility] [address] [facility] [place] [address] [facility] [id number] [facility] 2017-11-04 10:00:00 2017-11-04 10:00:00 [facility] [address] [facility] [place] [address] [facility] [id number] [facility] 2016-05-14 03:16:00 2016-05-14 03:16:00 Outpatient Raju_P [facility] 2014-08-22 12:43:07 2014-08-22 23:00:00 Outpatient O TYLER CHANG [facility] [id number] [facility] Results Test Description Test Time Test Comments Results Resul t Comments Source [place] TIME OR (NON-REPORTABLE) 2024-02-09 14:36:46 These images do not require a Radiology diagnostic report. [facility] FL TIME OR (NON-REPORTABLE) 2024-02-09 14:36:46 These images do not require a Radiology diagnostic report. [facility] GLUCOSE (AUTOMATED)2024-02-09 12:33:40* Test Item Value Reference Range Interpretation Comme nts POCT GLU (test code = 2851498728) 98 mg/dL 70-110 Lab Interpretation (test cod e = 56047-7) Normal [facility] TIME OR (NON-REPORTABLE)2023-12-01 13:34:56 These images do not require a Radiology diagnostic report.[facility] TIME OR (NON-REPORTABLE)2023-12-01 13:34:56These images do not require a Radiology diagnostic report.[facility] GLUCOSE (AUTOMATED)2023-12-01 12:29:33* Test Item Value Reference Range Interpretation Comme nts POCT GLU (test code = 5133004858) 85 mg/dL 70-110 Lab Interpretation (test cod e = 12268-1) Normal [facility] GLUCOSE (AUTOMATED)2023-12-01 12:29:33* Test Item Value Reference Range Interpretation Comme nts POCT GLU (test code = 4906024373) 85 mg/dL 70-110 Lab Interpretation (test cod e = 27350-3) Normal [facility] TIME OR (NON-REPORTABLE)2023-10-20 14:29:37 These images do not require a Radiology diagnostic report.[facility] TIME OR (NON-REPORTABLE)2023-10-20 14:29:37These images do not require a Radiology diagnostic report.[facility] GLUCOSE (AUTOMATED)2023-10-20 13:08:39* Test Item Value Reference Range Interpretation Comme [facility] POCT GLU (test code = 4596888383) 81 mg/dL 70-110 Lab Interpretation (test cod e = 10288-4) Normal [facility] GLUCOSE (AUTOMATED)2023-10-20 13:08:39* Test Item Value Reference Range Interpretation Comme [facility] POCT GLU (test code = 2927993083) 81 mg/dL 70-110 Lab Interpretation (test cod e = 92193-5) Normal [facility] Center[facility]PRE[facility]ENSIVE METABOLIC [id number] 05:35:44* Test Item Value Reference Range Interpretation Comme [facility] GLUCOSE (test code = 2217) 108 MG/DL 70-99 H BUN (test code = 2208) 15 MG/DL 8-23 CREATININE (test code = 2214) 0.73 MG/DL 0.60-1.30 eGFR (2020 CKD-EPI) (test code = 63467) 91 ML/MIN/1.73 >60 CALC BUN/CREAT (test code = 2235) 21 RATIO 6-28 SODIUM (test code = 223) 142 MEQ/L 133-146 POTASSIUM (test code = 2228) 4.1 MEQ/L 3.5-5.4 CHLORIDE (test code = 2215) 106 MEQ/L 95-107 CARBON DIOXIDE (test code = 2206) 23 MEQ/L 19-31 CALCIUM (test code = 2209) 9.5 MG/DL 8.5-10.5 PROTEIN, TOTAL (test code = 2228) 6.8 G/DL 6.1-8.3 ALBUMIN (test code = 2201) 4.5 G/DL 3.5-5.2 CALC GLOBULIN (test code = 2240) 2.3 G/DL 1.9-3.7 CALC A/G RATIO (test code = 2234) 2.0 RATIO 1.0-2.6 BILIRUBIN, TOTAL (test code = 7) 1.3 MG/DL <=1.2 H ALKALINE PHOSPHATASE (test code = 2204) 97 U/L 40-142 AST (test code = 2218) 24 U/L 9-40 ALT (test code = 2219) 18 U/L 5-40 UNLESS OTHERWISE INDICATED, ALL TESTING PERFORMED AT [facility] [address] [place] [address]87 OCCUPATIONAL THERAPY SPECIALIST: DALLIN RAMOS M.D. [place] NUMBER [id number] [facility] [place] [id number] COMPREHENSIVE METABOLIC [id number] 00:00:00* Test Item Value Reference Range Interpretation Comme nts GLUCOSE (test code = 2217) 108 MG/DL BUN (test code = 2208) 15 MG/DL CREATININE (test code = 2214) 0.73 MG/DL eGFR (2020 CKD-EPI) (test co de = 81299) 91 ML/MIN/1.73 CALC BUN/CREAT (test code = 2235) 21 RATIO SODIUM (test code = 2231) 142 MEQ/L POTASSIUM (test code = 2228) 4.1 MEQ/L CHLORIDE (test code = 2215) 106 MEQ/L CARBON DIOXIDE (test code = 2206) 23 MEQ/L CALCIUM (test code = 2209) 9.5 MG/DL PROTEIN, TOTAL (test code = 2229) 6.8 G/DL ALBUMIN (test code = 2201) 4.5 G/DL CALC GLOBULIN (test code = 2240) 2.3 G/DL CALC A/G RATIO (test code = 2234) 2.0 RATIO BILIRUBIN, TOTAL (test code = 2207) 1.3 MG/DL ALKALINE PHOSPHATASE (test code = 2204) 97 U/L AST (test code = 2218) 24 U/L ALT (test code = 2219) 18 U/L [place] ReynagaCOMPREHENSIVE METABOLIC [id number] 00:00:00* Test Item Value Reference Range Interpretation Comme nts GLUCOSE (test code = 2217) 108 MG/DL BUN (test code = 2208) 15 MG/DL CREATININE (test code = 2214) 0.73 MG/DL eGFR (2020 CKD-EPI) (test co de = 35991) 91 ML/MIN/1.73 CALC BUN/CREAT (test code = 2235) 21 RATIO SODIUM (test code = 2231) 142 MEQ/L POTASSIUM (test code = 2228) 4.1 MEQ/L CHLORIDE (test code = 2215) 106 MEQ/L CARBON DIOXIDE (test code = 2206) 23 MEQ/L CALCIUM (test code = 2209) 9.5 MG/DL PROTEIN, TOTAL (test code = 2229) 6.8 G/DL ALBUMIN (test code = 2201) 4.5 G/DL CALC GLOBULIN (test code = 2240) 2.3 G/DL CALC A/G RATIO (test code = 2234) 2.0 RATIO BILIRUBIN, TOTAL (test code = 2207) 1.3 MG/DL ALKALINE PHOSPHATASE (test code = 2204) 97 U/L AST (test code = 2218) 24 U/L ALT (test code = 2219) 18 U/L Rock Rondon JacksonFL TIME OR (NON-REPORTABLE)2023-09-22 13:06:02These images do not require a Radiology diagnostic report.[facility] TIME OR (NON-REPORTABLE)2023-09-22 13:06:02These images do not require a Radiology diagnostic report.[facility] GLUCOSE (AUTOMATED)2023-09-22 11:41:59* Test Item Value Reference Range Interpretation Comme nts POCT GLU (test code = 5307332774) 80 mg/dL 70-110 Lab Interpretation (test cod e = 44862-3) Normal [facility] GLUCOSE (AUTOMATED)2023-09-22 11:41:59* Test Item Value Reference Range Interpretation Comme nts POCT GLU (test code = 3452712154) 80 mg/dL 70-110 Lab Interpretation (test cod e = 42632-1) Normal [facility], NAAT, [id number] 15:33:47* Test Item Value Reference Range Interpretation Comme nts CHLAMYDIA, NAAT, URINE (test code = 68926) NEGATIVE NEGATIVE Testing is perfo rmed with Samra RANDY 6800/8800 systems usingreal-time polymerase chain reaction (PCR) method. A negative result does not exclude low level infection, specimensampling error, or collection error. GONORRHEA, NAAT, URINE (test code = 37737) NEGATIVE NEGATIVE Testing is perfo rmed with Samra RANDY 6800/8800 systems usingreal-time polymerase chain reaction (PCR) method. A negative result does not exclude low level infection, specimensampling error, or collection error. VAGINAL PATHOGENS DNA [id number] 11:20:33* Test Item Value Reference Range Interpretation Comme nts THUY SPECIES (test code = 52360) NEGATIVE NEGATIVE G. VAGINALIS (test code = 65499) POSITIVE NEGATIVE A T. VAGINALIS (test code = 99081) NEGATIVE NEGATIVE Note: The [facility] VPIII Microbial Identification Testis a DNA probe test intended for use in the detectionand identification of Thuy species, Gardnerellavaginalis and Trichomonas vaginalis nucleic acid. HIV 1/2 4TH GEN, RFLX [id number] 04:22:27* Test Item Value Reference Range Interpretation Comme nts HIV 1/2 4TH GEN, RFLX CONF ( test code = 3514) NON-REACTIVE NON-REACTIVE HEPATITIS PANEL, [id number] 04:22:27* Test Item Value Reference Range Interpretation Comme nts HEPATITIS A IgM (test code = 23087) NON-REACTIVE NON-REACTIVE HEPATITIS B CORE IgM (test code = 4644) NON-REACTIVE NON-REACTIVE HEPATITIS B SURF AG (test code = 2739) NON-REACTIVE NON-REACTIVE HEPATITIS C ANTIBODY (test code = 4675) NON-REACTIVE NON-REACTIVE INTERPRETATION HEPATITIS A: (test code = 2552) (NOTE) Hepatitis A serology shows no evidence of acute hepatitis A. INTERPRETATION HEPATITIS B: (test code = 37638) (NOTE) Hepatitis B serology shows no evidence of acute hepatitis B andno indication of exposure to hepatitis B virus in the previous katerina eight months. INTERPRETATION HEPATITIS C: (test code = 63800) (NOTE) Hepatitis C serology shows no evidence of exposure to hepatitisC virus at this time. It can take up to 12 months after exposure tothe hepatitis C virus for antibodies to become detectable in the blood in certain patients. RPR REFLEX TO T. PALLIDUM - [id number] 03:40:38* Test Item Value Reference Range Interpretation Comme nts RPR (test code = 37795) NON-REACTIVE NON-REACTIVE RPR TITER (test code = 3500) NOT INDIC. TITER NOT INDIC. UNLESS OTHERWISE INDICATED, ALL TESTING PERFORMED AT [facility] [address] [place] [id number] OCCUPATIONAL THERAPY SPECIALIST: DALLIN RAMOS M.D. CLIA NUMBER [id number] [facility] [place] [place]. [id number] HIV 1/2 4TH GEN, RFLX [id number] 00:00:00* Test Item Value Reference Range Interpretation Comme nts HIV 1/2 4TH GEN, RFLX CONF ( test code = 3514) NON-REACTIVE Rock ReynagaACUTE HEPATITIS [id number] 00:00:00* Test Item Value Reference Range Interpretation Comme nts HEPATITIS A IgM (test code = 97437) NON-REACTIVE HEPATITIS B CORE IgM (test c ode = 4644) NON-REACTIVE HEPATITIS B SURF AG (test co de = 2739) NON-REACTIVE HEPATITIS C ANTIBODY (test c ode = 4675) NON-REACTIVE INTERPRETATION HEPATITIS A: (test code = 2552) (NOTE) INTERPRETATION HEPATITIS B: (test code = 84052) (NOTE) INTERPRETATION HEPATITIS C: (test code = 71067) (NOTE) Rock ReynagaCT/NG, TMA, [id number] 00:00:00* Test Item Value Reference Range Interpretation Comme nts CHLAMYDIA, NAAT, URINE (test code = 00460) NEGATIVE GONORRHEA, NAAT, URINE (test code = 12941) NEGATIVE Rock Rondon AustinRPR REFLEX TO T. PALLIDUM - [id number] 00:00:00* Test Item Value Reference Range Interpretation Comme nts RPR (test code = 06632) NON-REACTIVE RPR TITER (test code = 3500) NOT INDIC. TITER Rock ReynagaVAGINAL PATHOGENS DNA [id number] 00:00:00* Test Item Value Reference Range Interpretation Comme nts THUY SPECIES (test code = 32860) NEGATIVE G. VAGINALIS (test code = 68865) POSITIVE T. VAGINALIS (test code = 49377) NEGATIVE Rock ReynagaHIV 1/2 4TH GEN, RFLX [id number] 00:00:00* Test Item Value Reference Range Interpretation Comme nts HIV 1/2 4TH GEN, RFLX CONF ( test code = 3514) NON-REACTIVE Rock ReynagaACUTE HEPATITIS [id number] 00:00:00* Test Item Value Reference Range Interpretation Comme nts HEPATITIS A IgM (test code = 59680) NON-REACTIVE HEPATITIS B CORE IgM (test c ode = 4644) NON-REACTIVE HEPATITIS B SURF AG (test co de = 2739) NON-REACTIVE HEPATITIS C ANTIBODY (test c ode = 4675) NON-REACTIVE INTERPRETATION HEPATITIS A: (test code = 2552) (NOTE) INTERPRETATION HEPATITIS B: (test code = 32211) (NOTE) INTERPRETATION HEPATITIS C: (test code = 45969) (NOTE) Rock Rondon RonnellCT/NG, TMA, [id number] 00:00:00* Test Item Value Reference Range Interpretation Comme nts CHLAMYDIA, NAAT, URINE (test code = 43848) NEGATIVE GONORRHEA, NAAT, URINE (test code = 59912) NEGATIVE Rock Rondon RonnellRPR REFLEX TO T. PALLIDUM - [id number] 00:00:00* Test Item Value Reference Range Interpretation Comme nts RPR (test code = 21145) NON-REACTIVE RPR TITER (test code = 3500) NOT INDIC. TITER Rock Rondon RonnellVAGINAL PATHOGENS DNA [id number] 00:00:00* Test Item Value Reference Range Interpretation Comme nts THUY SPECIES (test code = 03144) NEGATIVE G. VAGINALIS (test code = 53056) POSITIVE T. VAGINALIS (test code = 73817) NEGATIVE Rock Rondon RonnellFL TIME OR (NON-REPORTABLE)2023-07-21 15:06:50These images do not require a Radiology diagnostic report.[facility] GLUCOSE (AUTOMATED)2023-07-21 13:38:50* Test Item Value Reference Range Interpretation Comme nts POCT GLU (test code = 8098653379) 81 mg/dL 70-110 Lab Interpretation (test cod e = 88710-6) Normal [facility] GLUCOSE (AUTOMATED)2023-07-21 13:38:50* Test Item Value Reference Range Interpretation Comme nts POCT GLU (test code = 4816925932) 81 mg/dL 70-110 Lab Interpretation (test cod e = 35546-4) Normal [facility] with [id number] 16:59:58* Test Item Value Reference Range Interpretation Comme nts WBC (test code = 6690-2) 5.06 See_Comment [Automated zoojoo.BEa ge] The system which generated this result transmitted reference range: 4.30 - 11.10 10*3/?L. The reference range was not used to interpret this result as normal/abnormal. RBC (test code = 789-8) 4.49 See_Comment [Automated zoojoo.BEa ge] The system which generated this result transmitted reference range: 3.93 - 5.25 10*6/?L. The reference range was not used to interpret this result as normal/abnormal. HGB (test code = 718-7) 13.2 g/dL 11.6-15.0 HCT (test code = 4544-3) 40.2 % 35.7-45.2 MCV (test code = 787-2) 89.5 fL 80.6-95.5 MCH (test code = 785-6) 29.4 pg 25.9-32.8 MCHC (test code = 786-4) 32.8 g/dL 31.6-35.1 RDW-SD (test code = 07650-5) 46.1 fL 39.0-49.9 RDW-CV (test code = 788-0) 14.1 % 12.0-15.5 PLT (test code = 777-3) 168 See_Comment [Automated messa ge] The system which generated this result transmitted reference range: 166 - 358 10*3/?L. The reference range was not used to interpret this result as normal/abnormal. MPV (test code = 72141-7) 10.2 fL 9.5-12.9 NRBC/100 WBC (test code = 0919170430) 0.0 See_Comment [Automated Video[employer] ssage] The system which generated this result transmitted reference range: 0.0 - 10.0 /100 WBCs. The reference range was not used to interpret this result as normal/abnormal. NRBC x10^3 (test code = 7157787607) See_Comment [Automated messa ge] The system which generated this result transmitted reference range: 10*3/?L. The reference range was not used to interpret this result as normal/abnormal. GRAN MAT (NEUT) % (test code = 770-8) 47.4 % IMM GRAN % (test code = 4731967208) 0.00 % LYMPH % (test code = 736-9) 44.7 % MONO % (test code = 5905-5) 5.5 % EOS % (test code = 713-8) 2.0 % BASO % (test code = 706-2) 0.4 % GRAN MAT x10^3(ANC) (test code = 2606734455) 2.40 10*3/uL 1.88-7.09 IMM GRAN x10^3 (test code = 4900299044) 0.00-0.06 LYMPH x10^3 (test code = 731-0) 2.26 10*3/uL 1.32-3.29 MONO x10^3 (test code = 742-7) 0.28 10*3/uL 0.33-0.92 L EOS x10^3 (test code = 711-2) 0.10 10*3/uL 0.03-0.39 BASO x10^3 (test code = 704-7) 0.01-0.07 Lab Interpretation (test code = 29553-0) Abnormal [facility] W/AUTO [id number] 00:00:00* Test Item Value Reference Range Interpretation Comme nts NUCLEATED RBCS (test code = 92760-9) 0.0 /100 WBC'S See_Comment [Automated messa ge] The system which generated this result transmitted reference range: 0.0 /100 WBC'S. The reference range was not used to interpret this result as normal/abnormal. ABSOLUTE EOSINOPHILS (test code = 87894-7) 0.08 K/UL See_Comment [Automated messa ge] The system which generated this result transmitted reference range: 0.00-0.50 K/UL. The reference range was not used to interpret this result as normal/abnormal. ABSOLUTE LYMPHOCYTES (test code = 80614-5) 2.45 K/UL See_Comment [Automated messa ge] The system which generated this result transmitted reference range: 1.00-4.00 K/UL. The reference range was not used to interpret this result as normal/abnormal. ABSOLUTE MONOCYTES (test code = 34425-7) 0.38 K/UL See_Comment [Automated messa ge] The system which generated this result transmitted reference range: 0.20-1.00 K/UL. The reference range was not used to interpret this result as normal/abnormal. ABSOLUTE NEUTROPHILS (test code = 73548-5) 2.09 K/UL See_Comment [Automated messa ge] The system which generated this result transmitted reference range: 1.50-7.50 K/UL. The reference range was not used to interpret this result as normal/abnormal. BASOPHILS (test code = 01033-6) 0.4 % EOSINOPHILS (test code = 65568-2) 1.6 % HEMATOCRIT (test code = 87944-8) 39.9 % See_Comment [Automated messa ge] The system which generated this result transmitted reference range: 34.0-45.0 %. The reference range was not used to interpret this result as normal/abnormal. HEMOGLOBIN (test code = 718-7) 13.3 G/DL See_Comment [Automated messa ge] The system which generated this result transmitted reference range: 11.5-15.5 G/DL. The reference range was not used to interpret this result as normal/abnormal. LYMPHOCYTES (test code = 77071-2) 48.8 % MCH (test code = 06472-1) 29.7 PG See_Comment [Automated messa ge] The system which generated this result transmitted reference range: 25.0-33.0 PG. The reference range was not used to interpret this result as normal/abnormal. MCHC (test code = 13112-3) 33.3 G/DL See_Comment [Automated messa ge] The system which generated this result transmitted reference range: 31.0-36.0 G/DL. The reference range was not used to interpret this result as normal/abnormal. MCV (test code = 63078-3) 89.1 fL See_Comment [Automated messa ge] The system which generated this result transmitted reference range: 80.0-99.0 fL. The reference range was not used to interpret this result as normal/abnormal. MONOCYTES (test code = 66693-0) 7.6 % NEUTROPHILS (test code = 23507-5) 41.6 % PLATELET COUNT (test code = 05411-7) 185 K/UL See_Comment [Automated messa ge] The system which generated this result transmitted reference range: 130-400 K/UL. The reference range was not used to interpret this result as normal/abnormal. RBC (test code = 44795-7) 4.48 M/UL See_Comment [Automated messa ge] The system which generated this result transmitted reference range: 3.80-5.40 M/UL. The reference range was not used to interpret this result as normal/abnormal. RDW (test code = 10577-7) 13.6 % See_Comment [Automated messa ge] The system which generated this result transmitted reference range: 11.5-15.0 %. The reference range was not used to interpret this result as normal/abnormal. WBC (test code = 03309-2) 5.0 K/UL See_Comment [Automated messa ge] The system which generated this result transmitted reference range: 3.5-11.0 K/UL. The reference range was not used to interpret this result as normal/abnormal. POCT URINALYSIS W/O SPECIFIC [id number] 18:10:00* Test Item Value Reference Range Interpretation Comme nts POCT PH U (test code = 3254) 5 mg/dl 5-8 POCT U LEUK EST (test code = 3263) 1+ Negative - Negative POCT U NIT (test code = 3262) Negative Negative - Negati ve POCT U PROT (test code = 3259) 1+ Negative - Negat yovany POCT U GLU (test code = 3256) Negative Negative - Negati ve POCT U KETONE (test code = 3258) Negative Negative - Neg ative POCT U BLD (test code = 3257) 5+ Negative - Negati ve [facility] SPECIFIC [id number] 18:10:00* Test Item Value Reference Range Interpretation Comme nts POCT PH U (test code = 3254) 5 mg/dl 5-8 POCT U LEUK EST (test code = 3263) 1+ Negative - Negative POCT U NIT (test code = 3262) Negative Negative - Negati ve POCT U PROT (test code = 3259) 1+ Negative - Negat yovany POCT U GLU (test code = 3256) Negative Negative - Negati ve POCT U KETONE (test code = 3258) Negative Negative - Neg ative POCT U BLD (test code = 3257) 5+ Negative - Negati ve [facility]/O SPECIFIC [id number] 18:10:00* Test Item Value Reference Range Interpretation Comme nts POCT PH U (test code = 3254) 5 mg/dl 5-8 POCT U LEUK EST (test code = 3263) 1+ Negative - Negative POCT U NIT (test code = 3262) Negative Negative - Negati ve POCT U PROT (test code = 3259) 1+ Negative - Negat yovany POCT U GLU (test code = 3256) Negative Negative - Negati ve POCT U KETONE (test code = 3258) Negative Negative - Neg ative POCT U BLD (test code = 3257) 5+ Negative - Negati ve [facility] W/AUTO [id number] 00:00:00* Test Item Value Reference Range Interpretation Comme nts NUCLEATED RBCS (test code = 91020-2) 0.0 /100 WBC'S See_Comment [Automated messa ge] The system which generated this result transmitted reference range: 0.0 /100 WBC'S. The reference range was not used to interpret this result as normal/abnormal. ABSOLUTE EOSINOPHILS (test code = 33794-3) 0.11 K/UL See_Comment [Automated messa ge] The system which generated this result transmitted reference range: 0.00-0.50 K/UL. The reference range was not used to interpret this result as normal/abnormal. ABSOLUTE LYMPHOCYTES (test code = 60967-2) 2.85 K/UL See_Comment [Automated messa ge] The system which generated this result transmitted reference range: 1.00-4.00 K/UL. The reference range was not used to interpret this result as normal/abnormal. ABSOLUTE MONOCYTES (test code = 13514-5) 0.44 K/UL See_Comment [Automated messa ge] The system which generated this result transmitted reference range: 0.20-1.00 K/UL. The reference range was not used to interpret this result as normal/abnormal. ABSOLUTE NEUTROPHILS (test code = 81407-7) 3.33 K/UL See_Comment [Automated messa ge] The system which generated this result transmitted reference range: 1.50-7.50 K/UL. The reference range was not used to interpret this result as normal/abnormal. BASOPHILS (test code = 26816-4) 0.3 % EOSINOPHILS (test code = 30495-1) 1.6 % HEMATOCRIT (test code = 86973-3) 39.9 % See_Comment [Automated messa ge] The [...] result as normal/abnormal. LYMPHOCYTES (test code = 82673-3) 42.2 % MCH (test code = 84100-9) 31.4 PG See_Comment [Automated messa ge] The system which generated this result transmitted reference range: 25.0-33.0 PG. The reference range was not used to interpret this result as normal/abnormal. MCHC (test code = 69485-9) 34.3 G/DL See_Comment [Automated messa ge] The system which generated this result transmitted reference range: 31.0-36.0 G/DL. The reference range was not used to interpret this result as normal/abnormal. MCV (test code = 13584-0) 91.3 fL See_Comment [Automated messa ge] The system which generated this result transmitted reference range: 80.0-99.0 fL. The reference range was not used to interpret this result as normal/abnormal. MONOCYTES (test code = 52928-1) 6.5 % NEUTROPHILS (test code = 25872-2) 49.3 % PLATELET COUNT (test code = 11097-5) 163 K/UL See_Comment [Automated messa ge] The system which generated this result transmitted reference range: 130-400 K/UL. The reference range was not used to interpret this result as normal/abnormal. RBC (test code = 95081-2) 4.37 M/UL See_Comment [Automated messa ge] The system which generated this result transmitted reference range: 3.80-5.40 M/UL. The reference range was not used to interpret this result as normal/abnormal. RDW (test code = 70332-5) 13.8 % See_Comment [Automated messa ge] The system which generated this result transmitted reference range: 11.5-15.0 %. The reference range was not used to interpret this result as normal/abnormal. WBC (test code = 52060-2) 6.8 K/UL See_Comment [Automated messa ge] The system which generated this result transmitted reference range: 3.5-11.0 K/UL. The reference range was not used to interpret this result as normal/abnormal. CBC W/AUTO [id number] 00:00:00* Test Item Value Reference Range Interpretation Comme nts NUCLEATED RBCS (test code = 37914-1) 0.0 /100 WBC'S See_Comment [Automated messa ge] The system which generated this result transmitted reference range: 0.0 /100 WBC'S. The reference range was not used to interpret this result as normal/abnormal. ABSOLUTE EOSINOPHILS (test code = 86355-8) 0.00 K/UL See_Comment [Automated messa ge] The system which generated this result transmitted reference range: 0.00-0.50 K/UL. The reference range was not used to interpret this result as normal/abnormal. ABSOLUTE LYMPHOCYTES (test code = 64889-8) 2.23 K/UL See_Comment [Automated messa ge] The system which generated this result transmitted reference range: 1.00-4.00 K/UL. The reference range was not used to interpret this result as normal/abnormal. ABSOLUTE MONOCYTES (test code = 48835-4) 0.48 K/UL See_Comment [Automated messa ge] The system which generated this result transmitted reference range: 0.20-1.00 K/UL. The reference range was not used to interpret this result as normal/abnormal. ABSOLUTE NEUTROPHILS (test code = 04582-1) 7.20 K/UL See_Comment [Automated messa ge] The system which generated this result transmitted reference range: 1.50-7.50 K/UL. The reference range was not used to interpret this result as normal/abnormal. BASOPHILS (test code = 35945-7) 0.1 % EOSINOPHILS (test code = 61257-8) 0.0 % HEMATOCRIT (test code = 55483-5) 43.7 % See_Comment [Automated messa ge] The [...] result as normal/abnormal. LYMPHOCYTES (test code = 24509-2) 22.4 % MCH (test code = 29078-9) 30.6 PG See_Comment [Automated messa ge] The system which generated this result transmitted reference range: 25.0-33.0 PG. The reference range was not used to interpret this result as normal/abnormal. MCHC (test code = 43840-4) 33.6 G/DL See_Comment [Automated messa ge] The system which generated this result transmitted reference range: 31.0-36.0 G/DL. The reference range was not used to interpret this result as normal/abnormal. MCV (test code = 93423-1) 91.0 fL See_Comment [Automated messa ge] The system which generated this result transmitted reference range: 80.0-99.0 fL. The reference range was not used to interpret this result as normal/abnormal. MONOCYTES (test code = 42962-3) 4.8 % NEUTROPHILS (test code = 97464-6) 72.3 % PLATELET COUNT (test code = 17375-4) 208 K/UL See_Comment [Automated messa ge] The system which generated this result transmitted reference range: 130-400 K/UL. The reference range was not used to interpret this result as normal/abnormal. RBC (test code = 94243-3) 4.80 M/UL See_Comment [Automated messa ge] The system which generated this result transmitted reference range: 3.80-5.40 M/UL. The reference range was not used to interpret this result as normal/abnormal. RDW (test code = 33785-5) 14.5 % See_Comment [Automated messa ge] The system which generated this result transmitted reference range: 11.5-15.0 %. The reference range was not used to interpret this result as normal/abnormal. WBC (test code = 23574-6) 10.0 K/UL See_Comment [Automated messa ge] The system which generated this result transmitted reference range: 3.5-11.0 K/UL. The reference range was not used to interpret this result as normal/abnormal. STREP A [id number] 00:00:00ResultPOCT GLUCOSE (AUTOMATED)2022-01-21 12:01:12* Test Item Value Reference Range Interpretation Comme nts POCT GLU (test code = 9227657013) 82 mg/dL 70-110 Lab Interpretation (test cod e = 87451-1) Normal [facility] GLUCOSE (AUTOMATED)2022-01-21 12:01:12* Test Item Value Reference Range Interpretation Comme nts POCT GLU (test code = 4096235876) 82 mg/dL 70-110 Lab Interpretation (test cod e = 30495-6) Normal [facility] GLUCOSE(AGE >30DAYS)2022-01-21 11:50:00* Test Item Value Reference Range Interpretation Comme nts POCT Glu (age>30days) (test code = 3342) 82 mg/dL 70-110 [facility] GLUCOSE(AGE >30DAYS)2022-01-21 11:50:00* Test Item Value Reference Range Interpretation Comme nts POCT Glu (age>30days) (test code = 3342) 82 mg/dL 70-110 [facility] AND CHLAMYDIA, AMPLIFIED, [id number] 00:00:00* Test Item Value Reference Range Interpretation Comme nts GONORRHEA, NAAT (test code = 89324) NEGATIVE CHLAMYDIA, NAAT (test code = 28596) NEGATIVE Rockroma ReynagaGC AND CHLAMYDIA, AMPLIFIED, [id number] 00:00:00* Test Item Value Reference Range Interpretation Comme nts GONORRHEA, NAAT (test code = 45500) NEGATIVE CHLAMYDIA, NAAT (test code = 99446) NEGATIVE Rockroma ReynagaGC AND CHLAMYDIA, AMPLIFIED, [id number] 00:00:00* Test Item Value Reference Range Interpretation Comme nts GONORRHEA, NAAT (test code = 57722) NEGATIVE CHLAMYDIA, NAAT (test code = 79236) NEGATIVE [id number] 00:00:00* Test Item Value Reference Range Interpretation Comme nts RPR RESULT (test code = 3501) NON-REACTIVE RPR TITER (test code = 3500) NOT INDIC. TITER Rock Nela [id number] 00:00:00* Test Item Value Reference Range Interpretation Comme nts TSH, THIRD GENERATION (test code = 2821) 1.090 UIU/ML Rock ReynagaCBC W/AUTO [id number] 00:00:00* Test Item Value Reference Range Interpretation [...] ABS NUCLEATED RBCS (test cod e = 33371) 0.00 K/UL Rock Rondon RonnellHIV AB/AG COMBO RFLX [id number] 00:00:00* Test Item Value Reference Range Interpretation Comme nts HIV 1/2 4TH GEN, RFLX CONF ( test code = 3514) NON-REACTIVE [place] Rondon RonnellVAGINAL PATHOGENS DNA [id number] 00:00:00* Test Item Value Reference Range Interpretation Comme nts THUY SPECIES (test code = 03196) NEGATIVE G. VAGINALIS (test code = ) POSITIVE T. VAGINALIS (test code = ) NEGATIVE Rock Rondon [id number] 00:00:00* Test Item Value Reference Range Interpretation Comme nts RPR RESULT (test code = 3501) NON-REACTIVE RPR TITER (test code = 3500) NOT INDIC. TITER Rock Rondon AustinCBC W/AUTO [id number] 00:00:00* Test Item Value Reference Range Interpretation [...] ABS NUCLEATED RBCS (test cod e = 53799) 0.00 K/UL HIV AB/AG COMBO RFLX [id number] 00:00:00* Test Item Value Reference Range Interpretation Comme nts HIV 1/2 4TH GEN, RFLX CONF ( test code = 3514) NON-REACTIVE VAGINAL PATHOGENS DNA [id number] 00:00:00* Test Item Value Reference Range Interpretation Comme nts THUY SPECIES (test code = 43002) NEGATIVE G. VAGINALIS (test code = ) POSITIVE T. VAGINALIS (test code = 02035) NEGATIVE [id number] 00:00:00* Test Item Value Reference Range Interpretation Comme nts RPR RESULT (test code = 3501) NON-REACTIVE RPR TITER (test code = 3500) NOT INDIC. TITER [id number] 00:00:00* Test Item Value Reference Range Interpretation Comme nts TSH, THIRD GENERATION (test code = 2821) 1.090 UIU/ML [id number] 00:00:00* Test Item Value Reference Range Interpretation Comme nts TSH, THIRD GENERATION (test code = 2821) 1.090 UIU/ML Rock ReynagaCBC W/AUTO [id number] 00:00:00* Test Item Value Reference Range Interpretation [...] ABS NUCLEATED RBCS (test cod e = 64371) 0.00 K/UL Rock ReynagaHIV AB/AG COMBO RFLX [id number] 00:00:00* Test Item Value Reference Range Interpretation Comme nts HIV 1/2 4TH GEN, RFLX CONF ( test code = 3514) NON-REACTIVE Rock F AustinVAGINAL PATHOGENS DNA [id number] 00:00:00* Test Item Value Reference Range Interpretation Comme nts THUY SPECIES (test code = ) NEGATIVE G. VAGINALIS (test code = 85500) POSITIVE T. VAGINALIS (test code = 84468) NEGATIVE Rock ReynagaCULTURE, [id number] 00:00:00* Test Item Value Reference Range Interpretation Comme nts CULTURE, URINE (test code = 06738) SPECIMEN NUMBER: [id number] Rock ReynagaCULTURE, [id number] 00:00:00* Test Item Value Reference Range Interpretation Comme nts CULTURE, URINE (test code = 87236) SPECIMEN NUMBER: [id number] CULTURE, [id number] 00:00:00* Test Item Value Reference Range Interpretation Comme nts CULTURE, URINE (test code = 47092) SPECIMEN NUMBER: [id number] Rock Rondon AustinVAGINAL PATHOGENS DNA [id number] 00:00:00* Test Item Value Reference Range Interpretation Comme nts THUY SPECIES (test code = ) NEGATIVE G. VAGINALIS (test code = 78636) POSITIVE T. VAGINALIS (test code = 61985) NEGATIVE Rock Rondon AustinVAGINAL PATHOGENS DNA [id number] 00:00:00* Test Item Value Reference Range Interpretation Comme nts THUY SPECIES (test code = 46619) NEGATIVE G. VAGINALIS (test code = 43709) POSITIVE T. VAGINALIS (test code = 59732) NEGATIVE Rock Rondon AustinVAGINAL PATHOGENS DNA [id number] 00:00:00* Test Item Value Reference Range Interpretation Comme nts THUY SPECIES (test code = 19845) NEGATIVE G. VAGINALIS (test code = 60209) POSITIVE T. VAGINALIS (test code = 69523) NEGATIVE LIPID PROFILE (CORONARY RISK)2018-08-01 08:02:00* Test Item Value Reference Range Interpretation Comme nts TRIGLYCERIDES (test code = TRIG) 194 MG/DL TRIGLYCERIDES REFERENCE RANGE:Normal: <150 mg/dLBorderline High: 150-199 mg/dLHigh: 200-499 mg/dLVery High: >=500 mg/dL CHOLESTEROL (test code = CHOL) 206 MG/DL <200 HDL CHOLESTEROL (test code = HDL) 59 MG/DL 40-59 N LIPOPROTEIN LDL (test code = LDL) 116 MG/DL 0-99 H OPTIMAL......... <100 mg/dLNEAR OPTIMAL/ABOVE OPTIMAL.........100-12 9 mg/dL BORDERLINE HIGH.........130-159 mg/dL HIGH.........160-189 mg/dL VERY HIGH.........>/= 190 mg/dL [id number] 08:02:00* Test Item Value Reference Range Interpretation Comme nts MAGNESIUM (test code = MAG) 2.0 MG/DL 1.6-2.3 N LIPID PROFILE (CORONARY RISK)2018-08-01 07:51:00* Test Item Value Reference Range Interpretation Comme nts TRIGLYCERIDES (test code = TRIG) 194 MG/DL TRIGLYCERIDES REFERENCE RANGE:Normal: <150 mg/dLBorderline High: 150-199 mg/dLHigh: 200-499 mg/dLVery High: >=500 mg/dL CHOLESTEROL (test code = CHOL) 206 MG/DL <200 HDL CHOLESTEROL (test code = HDL) 59 MG/DL 40-59 N LIPOPROTEIN LDL (test code = LDL) MG/DL 0-99 [id number] 07:51:00* Test Item Value Reference Range Interpretation Comme nts MAGNESIUM (test code = MAG) 2.0 MG/DL 1.6-2.3 N PROTHROMBIN [id number] 07:37:00* Test Item Value Reference Range Interpretation Comme [facility] PROTHROMBIN TIME PATIENT (test code = PTP) 10.2 SECONDS 9.6-11.6 N INTERNATIONAL NORMAL RATIO (test code = INR) 1.0 0.8-1.1 N The INR is to be used only for monitoring oral anticoagulanttherap y. INDICATION INR VALUE -------1. Prophylaxis, deep venous thrombosis, including high risk surgery. 2.0 - 3.0 2. Prophylaxis, deep venous thrombosis, hip surgery, treatment for deep venous thrombosis or pulmonary prevention of systemic embolism in patients with valvular heart disease, atrial fibrillation, tissue heart valve, or acute myocardial infarction. 2.0 - 3.0 3. Mechanical prosthesis heart valves, recurrent systemic embolism. 3.0 - 4.5 PTT [id number] 07:37:00* Test Item Value Reference Range Interpretation Comme nts PTT ACTIVATED (test code = APTT) 26.7 SECONDS 22.0-33.0 N [id number] 01:26:00* Test Item Value Reference Range Interpretation Comme nts TROPONIN-I (test code = TROPI) < 0.012 NG/ML 0.012-0.033 L HEPATIC FUNCTION [id number] 18:44:00* Test Item Value Reference Range Interpretation Comme nts TOTAL PROTEIN (test code = PROT) 7.2 G/DL 6.3-8.2 N ALBUMIN (test code = ALB) 3.6 G/DL 3.5-5.0 N BILIRUBIN TOTAL (test code = BILT) 0.9 MG/DL 0.2-1.3 N BILIRUBIN DIRECT (test code = BILD) 0.0 MG/DL 0.0-0.3 N SGOT/AST (test code = AST) 27 UNITS/L 14-36 N SGPT/ALT (test code = ALT) 19 UNITS/L 9-52 N ALKALINE PHOSPHATASE (test c ode = ALKP) 77 UNITS/L 38-126 N BASIC METABOLIC [id number] 18:15:00* Test Item Value Reference Range Interpretation Comme nts SODIUM (test code = NA) 140 MMOL/L 137-145 N POTASSIUM (test code = K) 4.0 MMOL/L 3.5-5.1 N CHLORIDE (test code = CL) 110 MMOL/L 98-107 H CARBON DIOXIDE (test code = CO2) 23 MMOL/L 22-30 N GLUCOSE (test code = GLU) 105 MG/DL 74-106 N BLOOD UREA NITROGEN (test code = BUN) 20 MG/DL 7-17 H GLOMERULAR FILTRATION RATE (test code = GFR) > 60 Reporting units: ml/min/1.73 m2 (Modified MDRD Formula)Reference Range: > or = 60 ml/min/1.73 m2 CREATININE (test code = CREAT) 0.60 MG/DL 0.52-1.04 N CALCIUM (test code = CA) 8.9 MG/DL 8.4-10.2 N [id number] 18:15:00* Test Item Value Reference Range Interpretation Comme nts TROPONIN-I (test code = TROPI) < 0.012 NG/ML 0.012-0.033 L BASIC METABOLIC [id number] 18:03:00* Test Item Value Reference Range Interpretation Comme nts SODIUM (test code = NA) 140 MMOL/L 137-145 N POTASSIUM (test code = K) 4.0 MMOL/L 3.5-5.1 N CHLORIDE (test code = CL) 110 MMOL/L 98-107 H CARBON DIOXIDE (test code = CO2) 23 MMOL/L 22-30 N GLUCOSE (test code = GLU) 105 MG/DL 74-106 N BLOOD UREA NITROGEN (test code = BUN) 20 MG/DL 7-17 H GLOMERULAR FILTRATION RATE (test code = GFR) > 60 Reporting units: ml/min/1.73 m2 (Modified MDRD Formula)Reference Range: > or = 60 ml/min/1.73 m2 CREATININE (test code = CREAT) 0.60 MG/DL 0.52-1.04 N CALCIUM (test code = CA) 8.9 MG/DL 8.4-10.2 N [id number] 18:03:00* Test Item Value Reference Range Interpretation Comme nts TROPONIN-I (test code = TROPI) NG/ML 0.0-0.045 CBC W/O [id number] 17:39:00* Test Item Value Reference Range Interpretation Comme nts WHITE BLOOD CELL (test code = WBC) 8.3 K/MM3 3.8-9.8 N RED BLOOD CELL (test code = RBC) 3.85 M/MM3 3.58-4.97 N HEMOGLOBIN (test code = HGB) 12.2 G/DL 11.2-14.9 N HEMATOCRIT (test code = HCT) 37.5 % 33.2-43.5 N MEAN CELL VOLUME (test code = MCV) 97 fL 80.7-99.1 N MEAN CELL HGB (test code = MCH) 31.7 pg 27.0-34.1 N MEAN CELL HGB CONCETRATION (test code = MCHC) 32.5 % 32.2-35.7 N RED CELL DISTRIBUTION WIDTH (test code = RDW) 13.8 % 12.1-15.2 N PLATELET COUNT (test code = PLT) 155 K/MM3 129-368 N IMMATURE GRANULOCYTE % (test code = IG%) 0.1 % 0.0-2.0 N NEUTROPHIL # (test code = NT#) 5.0 K/mm3 2.0-7.6 N IMMATURE GRANULOCYTE # (test code = IG#) 0.01 x10 3/uL 0-0.03 N LYMPHOCYTE # (test code = LY#) 2.9 K/mm3 1.0-3.8 N MONOCYTE # (test code = MO#) 0.37 K/mm3 0.1-0.8 N EOSINOPHIL # (test code = EO#) 0.1 K/mm3 0.0-0.2 N BASOPHIL # (test code = BA#) 0.02 K/mm3 0.0-0.2 N NUCLEATED RBC # (test code = NRBC#) 0.0 K/mm3 0.0-0.1 N CBC W/AUTO [id number] 00:00:00* Test Item Value Reference Range Interpretation [...] COUNT (test code = 1015) 170 K/UL Rock Rondon RonnellCBC W/AUTO [id number] 00:00:00* Test Item Value Reference Range Interpretation [...] code = 1015) 170 K/UL CBC W/AUTO [id number] 00:00:00* Test Item Value Reference Range Interpretation [...] COUNT (test code = 1015) 170 K/UL Rock Rondon RonnellLIPID [id number] 00:00:00* Test Item Value Reference Range Interpretation Comme nts CHOLESTEROL (test code = 2210) 189 MG/DL TRIGLYCERIDES (test code = 2232) 148 MG/DL HDL CHOLESTEROL (test code = 2220) 70 MG/DL CALC LDL CHOL (test code = 2237) 89 MG/DL RISK RATIO LDL/HDL (test cod e = 2238) 1.28 RATIO Rock F RonnellHEMOGLOBIN [id number] 00:00:00* Test Item Value Reference Range Interpretation Comme nts HEMOGLOBIN A1c (test code = 71567) 5.2 % Rock F RonnellTHYROID II PROFILE (T3U, T4, T7, TSH)2016-07-11 00:00:00* Test Item Value Reference Range Interpretation Comme nts T3 UPTAKE (test code = 2817) 27.5 % T4 (THYROXINE) (test code = 2819) 7.1 UG/DL CALCULATED T7 (FTI) (test co de = 2820) 1.95 TSH (test code = 2821) 1.5 UIU/ML Rock ReynagaVITAMIN D, 25 [id number] 00:00:00* Test Item Value Reference Range Interpretation Comme nts VITAMIN D, 25 OH (test code = 4958) 8 NG/ML Rock ReynagaVAGINAL PATHOGENS DNA PANEL [ADDED]2016-07-11 00:00:00* Test Item Value Reference Range Interpretation Comme nts THUY SPECIES (test code = 70995) NEGATIVE G. VAGINALIS (test code = ) NEGATIVE T. VAGINALIS (test code = ) NEGATIVE Rock ReynagaCOMPREHENSIVE METABOLIC [id number] 00:00:00* Test Item Value Reference Range Interpretation Comme nts GLUCOSE (test code = 2217) 81 MG/DL BUN (test code = 2208) 14 MG/DL CREATININE (test code = 2214) 0.76 MG/DL eGFR AMER. (test cod e = 70790) 100 ML/MIN/1.73 eGFR NON- AMER. (test code = 79186) 86 ML/MIN/1.73 CALC BUN/CREAT (test code = [...] ALT (test code = 2219) 12 U/L Rock ReynagaLIPID [id number] 00:00:00* Test Item Value Reference Range Interpretation Comme nts CHOLESTEROL (test code = 2210) 189 MG/DL TRIGLYCERIDES (test code = 2232) 148 MG/DL HDL CHOLESTEROL (test code = 2220) 70 MG/DL CALC LDL CHOL (test code = 2237) 89 MG/DL RISK RATIO LDL/HDL (test cod e = 2238) 1.28 RATIO Rock Rondon AustinHEMOGLOBIN [id number] 00:00:00* Test Item Value Reference Range Interpretation Comme nts HEMOGLOBIN A1c (test code = 59964) 5.2 % THYROID II PROFILE (T3U, T4, T7, TSH)2016-07-11 00:00:00* Test Item Value Reference Range Interpretation Comme nts T3 UPTAKE (test code = 2817) 27.5 % T4 (THYROXINE) (test code = 2819) 7.1 UG/DL CALCULATED T7 (FTI) (test co de = 2820) 1.95 TSH (test code = 2821) 1.5 UIU/ML VITAMIN D, 25 [id number] 00:00:00* Test Item Value Reference Range Interpretation Comme nts VITAMIN D, 25 OH (test code = 4958) 8 NG/ML VAGINAL PATHOGENS DNA PANEL [ADDED]2016-07-11 00:00:00* Test Item Value Reference Range Interpretation Comme nts THUY SPECIES (test code = 29816) NEGATIVE G. VAGINALIS (test code = ) NEGATIVE T. VAGINALIS (test code = ) NEGATIVE COMPREHENSIVE METABOLIC [id number] 00:00:00* Test Item Value Reference Range Interpretation Comme nts GLUCOSE (test code = 2217) 81 MG/DL BUN (test code = 2208) 14 MG/DL CREATININE (test code = 2214) 0.76 MG/DL eGFR AMER. (test cod e = 59450) 100 ML/MIN/1.73 eGFR NON- AMER. (test code = 27678) 86 ML/MIN/1.73 CALC BUN/CREAT (test code = [...] (test code = 2219) 12 U/L LIPID [id number] 00:00:00* Test Item Value Reference Range Interpretation Comme nts CHOLESTEROL (test code = 2210) 189 MG/DL TRIGLYCERIDES (test code = 2232) 148 MG/DL HDL CHOLESTEROL (test code = 2220) 70 MG/DL CALC LDL CHOL (test code = 2237) 89 MG/DL RISK RATIO LDL/HDL (test cod e = 2238) 1.28 RATIO HEMOGLOBIN [id number] 00:00:00* Test Item Value Reference Range Interpretation Comme nts HEMOGLOBIN A1c (test code = 66015) 5.2 % Rock Rondon RonnellTHYROID II PROFILE (T3U, T4, T7, TSH)2016-07-11 00:00:00* Test Item Value Reference Range Interpretation Comme nts T3 UPTAKE (test code = 2817) 27.5 % T4 (THYROXINE) (test code = 2819) 7.1 UG/DL CALCULATED T7 (FTI) (test co de = 2820) 1.95 TSH (test code = 2821) 1.5 UIU/ML Rock Rondon RonnellVITAMIN D, 25 [id number] 00:00:00* Test Item Value Reference Range Interpretation Comme nts VITAMIN D, 25 OH (test code = 4958) 8 NG/ML Rock Rondon RonnellVAGINAL PATHOGENS DNA PANEL [ADDED]2016-07-11 00:00:00* Test Item Value Reference Range Interpretation Comme nts THUY SPECIES (test code = 09803) NEGATIVE G. VAGINALIS (test code = ) NEGATIVE T. VAGINALIS (test code = ) NEGATIVE Rock Rondon RonnellCOMPREHENSIVE METABOLIC [id number] 00:00:00* Test Item Value Reference Range Interpretation Comme nts GLUCOSE (test code = 2217) 81 MG/DL BUN (test code = 2208) 14 MG/DL CREATININE (test code = 2214) 0.76 MG/DL eGFR AMER. (test cod e = 50237) 100 ML/MIN/1.73 eGFR NON- AMER. (test code = 43622) 86 ML/MIN/1.73 CALC BUN/CREAT (test code = [...] ALT (test code = 2219) 12 U/L Rock ReynagaCBC W/AUTO [id number] 00:00:00* Test Item Value Reference Range Interpretation [...] COUNT (test code = 1015) 197 K/UL Rock ReynagaHEMOGLOBIN [id number] 00:00:00* Test Item Value Reference Range Interpretation Comme nts HEMOGLOBIN A1c (test code = 67359) 5.7 % Rock ReynagaCOMPREHENSIVE METABOLIC [id number] 00:00:00* Test Item Value Reference Range Interpretation Comme nts GLUCOSE (test code = 2217) 90 MG/DL BUN (test code = 2208) 19 MG/DL CREATININE (test code = 2214) 0.75 MG/DL eGFR AMER. (test cod e = 54192) 101 ML/MIN/1.73 eGFR NON- AMER. (test code = 96262) 87 ML/MIN/1.73 CALC BUN/CREAT (test code = [...] ALT (test code = 2219) 15 U/L Rock ReynagaCBC W/AUTO [id number] 00:00:00* Test Item Value Reference Range Interpretation [...] COUNT (test code = 1015) 197 K/UL Rock ReynagaHEMOGLOBIN [id number] 00:00:00* Test Item Value Reference Range Interpretation Comme nts HEMOGLOBIN A1c (test code = 19482) 5.7 % HEMOGLOBIN [id number] 00:00:00* Test Item Value Reference Range Interpretation Comme nts HEMOGLOBIN A1c (test code = 83864) 5.7 % Rock ReynagaCOMPREHENSIVE METABOLIC [id number] 00:00:00* Test Item Value Reference Range Interpretation Comme nts GLUCOSE (test code = 2217) 90 MG/DL BUN (test code = 2208) 19 MG/DL CREATININE (test code = 2214) 0.75 MG/DL eGFR AMER. (test cod e = 17452) 101 ML/MIN/1.73 eGFR NON- AMER. (test code = 49542) 87 ML/MIN/1.73 CALC BUN/CREAT (test code = [...] code = 2219) 15 U/L CBC W/AUTO [id number] 00:00:00* Test Item Value Reference Range Interpretation [...] COUNT (test code = 1015) 197 K/UL COMPREHENSIVE METABOLIC [id number] 00:00:00* Test Item Value Reference Range Interpretation Comme nts GLUCOSE (test code = 2217) 90 MG/DL BUN (test code = 2208) 19 MG/DL CREATININE (test code = 2214) 0.75 MG/DL eGFR AMER. (test cod e = 93690) 101 ML/MIN/1.73 eGFR NON- AMER. (test code = 89448) 87 ML/MIN/1.73 CALC BUN/CREAT (test code = [...] ALT (test code = 2219) 15 U/L Rock F RonnellACUTE HEPATITIS [id number] 00:00:00* Test Item Value Reference Range Interpretation Comme nts HEPATITIS A IgM (test code = 95419) NON-REACTIVE HEPATITIS B CORE IgM (test c ode = 4644) NON-REACTIVE HEPATITIS B SURF AG (test co de = 3354) NON-REACTIVE HEPATITIS C ANTIBODY (test c ode = 4197) NON-REACTIVE INTERPRETATION HEPATITIS A: (test code = 2552) (NOTE) INTERPRETATION HEPATITIS B: (test code = 02702) (NOTE) INTERPRETATION HEPATITIS C: (test code = 16204) (NOTE) Rock ReynagaACUTE HEPATITIS [id number] 00:00:00* Test Item Value Reference Range Interpretation Comme nts HEPATITIS A IgM (test code = 16143) NON-REACTIVE HEPATITIS B CORE IgM (test c ode = 4644) NON-REACTIVE HEPATITIS B SURF AG (test co de = 2739) NON-REACTIVE HEPATITIS C ANTIBODY (test c ode = 4675) NON-REACTIVE INTERPRETATION HEPATITIS A: (test code = 2552) (NOTE) INTERPRETATION HEPATITIS B: (test code = 33708) (NOTE) INTERPRETATION HEPATITIS C: (test code = 96549) (NOTE) ACUTE HEPATITIS [id number] 00:00:00* Test Item Value Reference Range Interpretation Comme nts HEPATITIS A IgM (test code = 65850) NON-REACTIVE HEPATITIS B CORE IgM (test c ode = 4644) NON-REACTIVE HEPATITIS B SURF AG (test co de = 2739) NON-REACTIVE HEPATITIS C ANTIBODY (test c ode = 4675) NON-REACTIVE INTERPRETATION HEPATITIS A: (test code = 2552) (NOTE) INTERPRETATION HEPATITIS B: (test code = 96461) (NOTE) INTERPRETATION HEPATITIS C: (test code = 83863) (NOTE) Rock Rondon [id number] 00:00:00* Test Item Value Reference Range Interpretation Comme nts LIPASE (test code = 2058) 16 U/L Rock Rondon [id number] 00:00:00* Test Item Value Reference Range Interpretation Comme nts AMYLASE (test code = 2205) 69 U/L Rock Rondon [id number] 00:00:00* Test Item Value Reference Range Interpretation Comme nts LIPASE (test code = 2058) 16 U/L Rock Rondon [id number] 00:00:00* Test Item Value Reference Range Interpretation Comme nts AMYLASE (test code = 2205) 69 U/L [id number] 00:00:00* Test Item Value Reference Range Interpretation Comme nts LIPASE (test code = 2058) 16 U/L [id number] 00:00:00* Test Item Value Reference Range Interpretation Comme nts AMYLASE (test code = 2205) 69 U/L Rock ReynagaHEMOGLOBIN [id number] 00:00:00* Test Item Value Reference Range Interpretation Comme nts HEMOGLOBIN A1c (test code = 49191) 5.7 % Rock Rondon [id number] 00:00:00* Test Item Value Reference Range Interpretation Comme nts TSH (test code = 2821) 1.8 UIU/ML Rock ReynagaCOMPREHENSIVE METABOLIC [id number] 00:00:00* Test Item Value Reference Range Interpretation Comme nts GLUCOSE (test code = 2217) 116 MG/DL BUN (test code = 2208) 15 MG/DL CREATININE (test code = 2214) 0.64 MG/DL eGFR AMER. (test cod e = 87667) 114 ML/MIN/1.73 eGFR NON- AMER. (test code = 22217) 98 ML/MIN/1.73 CALC BUN/CREAT (test code = [...] ALT (test code = 2219) 10 U/L Rock ReynagaHEMOGLOBIN [id number] 00:00:00* Test Item Value Reference Range Interpretation Comme nts HEMOGLOBIN A1c (test code = 08099) 5.7 % Rock Rondon [id number] 00:00:00* Test Item Value Reference Range Interpretation Comme nts TSH (test code = 2821) 1.8 UIU/ML COMPREHENSIVE METABOLIC [id number] 00:00:00* Test Item Value Reference Range Interpretation Comme nts GLUCOSE (test code = 2217) 116 MG/DL BUN (test code = 2208) 15 MG/DL CREATININE (test code = 2214) 0.64 MG/DL eGFR AMER. (test cod e = 61246) 114 ML/MIN/1.73 eGFR NON- AMER. (test code = 71170) 98 ML/MIN/1.73 CALC BUN/CREAT (test code = [...] ALT (test code = 2219) 10 U/L [id number] 00:00:00* Test Item Value Reference Range Interpretation Comme nts TSH (test code = 2821) 1.8 UIU/ML Rock Rondon AustinHEMOGLOBIN [id number] 00:00:00* Test Item Value Reference Range Interpretation Comme nts HEMOGLOBIN A1c (test code = 95562) 5.7 % COMPREHENSIVE METABOLIC [id number] 00:00:00* Test Item Value Reference Range Interpretation Comme nts GLUCOSE (test code = 2217) 116 MG/DL BUN (test code = 2208) 15 MG/DL CREATININE (test code = 2214) 0.64 MG/DL eGFR AMER. (test cod e = 03691) 114 ML/MIN/1.73 eGFR NON- AMER. (test code = 25099) 98 ML/MIN/1.73 CALC BUN/CREAT (test code = [...] ALT (test code = 2219) 10 U/L Rock ReynagaHEMOGLOBIN A1C* Test Item Value Reference Range Interpretation Comme nts A1C (test code = 4548-4) 5.7 POC, COVID 19 Antigen + Flu by SofiaPOC, COVID 19 Antigen + Flu by Jackie Notes Date/Time Note Provider Source Rock Reynaga [facility]2024-08-01 11:12:43 Images from the original note were not included. Your procedure is at [facility] on 02/09/24. The address is [address] [place] [address], [address]. [facility] nursing staff will call you the workday before your procedure to let you know what time to arrive.On the day of your procedure, please go inside that door and check in at the desk. Please note: You may not travel home alone and that includes in a taxi or by bus. We must speak to your Responsible Adult (who will be picking you up) the morning of your procedure, before the start of your procedure. This person must be an adult over the age of 18 years of age. Do not eat any solid food after midnight the night before surgery. You may have sips of clear liquids such as water, gatorade, and sprite up until two hours before your scheduled procedure. You may take your medications with a sip of water as directed by physician. Anticoagulants will be per physician guidance. Medication Note(s)/Instructions:Instructed by MD to hold ASA and Plavix four days prior to procedure. Instructed to hold diuretics and metformin morning of procedure. Pending screening, we may test for COVID. If a patient tests positive, their cases are cancelled and/or rescheduled. COVID SCREENING NOTE: Denies COVID symptoms, no testing required. Additional requests, questions, concerns:CB number and availability provided. Patient verbalized understanding of pre-op instructions and voiced no further questions at this time. [facility] CenterTfzaav5603-[facility] 10:41:09 Returned patients call. Patient states she is having bleeding, pelvic pain, and burning x 3 days. Patient was seen for this 02/2023 and was started on estrogen. Patient is requesting to be seen in [place] office. Patient scheduled with Dr. Miller in [facility]. Carlos Cordero RN 12/24/2023 10:42 AM [id number] 10:12:41 Pt called says she is having mild vaginal bleeding, and burning. Im unable to schedule the pt due to overload. Pt is very uncomfortable and would like to be seen. Barb LopezPrem[facility] CenterWneraj7340-54-30 13:42:02 Images from the original note were not included. Your procedure is at [facility] on 12/01/23. The address is [address] [place] [address], [address]. [facility] nursing staff will call you the workday before your procedure to let you know what time to arrive.On the day of your procedure, please go inside that door and check in at the desk. Please note: You may not travel home alone and that includes in a taxi or by bus. We must speak to your Responsible Adult (who will be picking you up) the morning of your procedure, before the start of your procedure. This person must be an adult over the age of 18 years of age. Do not eat any solid food after midnight the night before surgery. You may have sips of clear liquids such as water, gatorade, and sprite up until two hours before your scheduled procedure. You may take your medications with a sip of water as directed by physician. Anticoagulants will be per physician guidance. Medication Note(s)/Instructions:Started holding ASA and Plavix today per MD instruction. Instructed to hold furosemide, spironolactone, and metformin morning of procedure. Pending screening, we may test for COVID. If a patient tests positive, their cases are cancelled and/or rescheduled. COVID SCREENING NOTE: Denies COVID symptoms, no testing required. Additional requests, questions, concerns:CB number and availability provided. Patient verbalized understanding of pre-op instructions and voiced no further questions at this time. [id number] 08:30:00 Images from the original note were not included. Venipuncture collection performed by clean technique on the left anticubitus. Total of 1 attempts were made. Slight pressure and a bandage/dressing were applied to the site(s). The patient experienced no complications. The following specimens were processed according to instructions and sent to [facility] laboratories per lab order on 11/26/2023 : LT BLUE SST RED LAV 1 PPT DK GREEN (LiHep) DK GREEN (SodH) SILVA DK BLUE (K2) DK BLUE (S) ACD Blood Culture NIPT/NTD [id number] 11:47:30 Images from the original note were not included. Your procedure is at [facility] on 10/20/23. The address is [address] [place] [address], [id number]. [facility] nursing staff will call you the workday before your procedure to let you know what time to arrive.On the day of your procedure, please go inside that door and check in at the desk. Please note: You may not travel home alone and that includes in a taxi or by bus. We must speak to your Responsible Adult (who will be picking you up) the morning of your procedure, before the start of your procedure. This person must be an adult over the age of 18 years of age. Do not eat any solid food after midnight the night before surgery. You may have sips of clear liquids such as water, gatorade, and sprite up until two hours before your scheduled procedure. You may take your medications with a sip of water as directed by physician. Anticoagulants will be per physician guidance. Medication Note(s)/Instructions:Will hold clopidogrel four days prior to procedure per MD instruction. Instructed to hold furosemide, spironolactone, and metformin morning of procedure. Pending screening, we may test for COVID. If a patient tests positive, their cases are cancelled and/or rescheduled. COVID SCREENING NOTE: Denies COVID symptoms, no testing required. Additional requests, questions, concerns:CB number provided. Patient verbalized understanding of pre-op instructions and voiced no further questions at this time. [id number] 00:00:00 [facility]2024-03-26 14:11:17 Images from the original note were not included. Your procedure is at [facility] on 09/22/23. The address is [address] [place] [address], [address]. [facility] nursing staff will call you the workday before your procedure to let you know what time to arrive.On the day of your procedure, please go inside that door and check in at the desk. Please note: You may not travel home alone and that includes in a taxi or by bus. We must speak to your Responsible Adult (who will be picking you up) the morning of your procedure, before the start of your procedure. This person must be an adult over the age of 18 years of age. Do not eat any solid food after midnight the night before surgery. You may have sips of clear liquids such as water, gatorade, and sprite up until two hours before your scheduled procedure. You may take your medications with a sip of water as directed by physician. Anticoagulants will be per physician guidance. Medication Note(s)/Instructions:Instructed to hold furosemide, spironolactone, and metformin morning of procedure. Will hold clopidogrel four days prior to procedure per MD. Pending screening, we may test for COVID. If a patient tests positive, their cases are cancelled and/or rescheduled. COVID SCREENING NOTE: Denies COVID symptoms, no testing required. Additional requests, questions, concerns:CB numbers provided. Patient verbalized understanding of pre-op instructions and voiced no further questions at this time. Tali Rain RNUT - [id number] 09:33:29 Images from the original note were not included. Your procedure is at [facility] on 07/21/23. The address is [address] [place] [address], [facility]. [facility] nursing staff will call you the workday before your procedure to let you know what time to arrive.On the day of your procedure, please go inside that door and check in at the desk. Please note: You may not travel home alone and that includes in a taxi or by bus. We must speak to your Responsible Adult (who will be picking you up) the morning of your procedure, before the start of your procedure. This person must be an adult over the age of 18 years of age. Do not eat any solid food after midnight the night before surgery. You may have sips of clear liquids such as water, gatorade, and sprite up until two hours before your scheduled procedure. You may take your medications with a sip of water as directed by physician. Anticoagulants will be per physician guidance. Medication Note(s)/Instructions:Will hold Plavix starting tomorrow per MD instruction. Instructions given to hold metformin, furosemide, and spironolactone morning of procedure. Pending screening, we may test for COVID. If a patient tests positive, their cases are cancelled and/or rescheduled. COVID SCREENING NOTE: Denies COVID symptoms, no testing required. Additional requests, questions, concerns:n/a. CB number offered, patient declined. Patient verbalized understanding of pre-op instructions and voiced no further questions at this time. [facility]2024-01-22 11:15:00 Images from the original note were not included. Venipuncture collection performed by clean technique on the right hand. Total of 2 attempts were made. Slight pressure and a bandage/dressing were applied to the site(s). The patient experienced no complications. The following specimens were processed according to instructions and sent to [facility] laboratories per lab order on 07/14/2023 : LT BLUE SST RED LAV 1 PPT DK GREEN (LiHep) DK GREEN (SodH) SILVA DK BLUE (K2) DK BLUE (S) ACD Blood Culture NIPT/NTD [facility]2023-09-01 13:00:00Addended by: CARLA NORTON on: 02/21/2023 01:39 PM Modules accepted: Orders [id number] 19:45:[id number] [place] [address] PATIENT NAME: TOSHIA BARONE ADMIT DATE: 07/30/18 ACCOUNT NO: [id number] ROOM NO: [facility] AGE: 63 REPORT TYPE: DISCHARGE SUMMARY REPORT [...] pain. 8. Dyslipidemia, thyroid disorder, and venous thromboembolism. PAST SURGICAL HISTORY: Previous history of hysterectomy and left upper lobe removal. No cancer. CONSULTANTS: Dr. Cruz. PROCEDURES: Cardiac catheterization. HISTORY OF PRESENT ILLNESS: This is a 63-year-old female who was admitted to the hospital with persistent pain. The patient was seen in [place] because of her history of coronary artery disease and recurrent chest pain. She was admitted and cardiac catheterization was planned as previously for Friday. Her echocardiogram showed an EF of 60% to 64% with wall motion, normal diastolic dysfunction. The patient had a CT scan done in the hospital which suggested there is a 11 mm nodule in the left upper lobe that requires further followup. Today, the patient had a cardiac cath done by Dr. Cruz, which did not show any cardiac disease. The patient is doing otherwise well and she will be discharged home. She will follow up with Dr. Olman Johansen who is a dump grader. He has seen the patient in the past and the patient is aware of him and will follow up with him regarding lung nodule. She was given a copy of it as well. EKG shows normal sinus rhythm. The patient is seen and examined today. DISCHARGE MEDICATIONS: Please refer to the MAR for discharge medications. DIET: As instructed. ACTIVITY: As instructed. PATIENT NAME: TOSHIA BARONE More than 30 2 minutes spent on the discharge summary of the patient. Eoaf-ck-hjqr done on the day of discharge and her condition remains stable. Dictated By: Thalia Jeffries MD WT: DS:JALEN/TWYLA/SACHIN Conf#: [id number]/DID#: [id number] Authenticated and Edited by Thalia Jeffries MD On 08/02/18 9:25:41 PM at 2129 PATIENT NAME: TOSHIA BARONE 09:33:00 [id number] [place] [address] PATIENT NAME: TOSHIA BARONE ADMIT DATE: 07/30/18 ACCOUNT NO: [id number] ROOM NO: Z.409 AGE: 63 REPORT TYPE: CARDIAC CATHETERIZATION REPORT SEX: F ADMITTING PHYSICIAN:Thalia Jeffries MD ATTENDING PHYSICIAN:Thalia Jeffries MD PROCEDURE DATE: 08/01/2018 SAMPLER OVENS: Geremias Cruz MD TITLE OF THE PROCEDURE: Left heart catheterization. INDICATION FOR THE PROCEDURE: Chest pain, possible unstable angina, coronary artery disease, previous right coronary artery stent. ESTIMATED BLOOD LOSS: Minimal. COMPLICATIONS: None. CONTRAST: 50 mL. ANESTHESIA: Conscious sedation with Versed and fentanyl and 1% lidocaine for local anesthesia. FINAL DIAGNOSES: Patent right coronary artery stent. Nonobstructive coronary artery disease. RECOMMENDATION: Medical therapy. PROCEDURE IN DETAIL: After informed consent, the patient was brought to the cardiac catheterization lab in a stable fasting nonsedated state. She was prepped and draped in the usual sterile fashion. After conscious sedation, 1% lidocaine was administered to the right common femoral artery area for local anesthesia. A 6-Mongolian sheath was placed in the right common femoral artery using standard techniques and fluoroscopy. After heparinization, left coronary angiogram showed 20% mid LAD plaquing. The rest of the left system had no angiographic disease. Right coronary angiogram showed a patent stent in the proximal and mid vessel, 30% proximal plaquing before the stent and a dominant right coronary artery. Left ventricular angiogram showed ejection fraction of 65%, left ventricular end-diastolic pressure of 20, no wall motion abnormalities or aortic valve gradient. The right groin was sealed using Vascade. There were no complications. The patient tolerated the procedure well. She was transferred back to the holding area for observation to be discharged later on today on medical therapy and risk factor modification. Dictated By: Geremias Cruz MD WT: CATH:SHANNAN/GARY/SACHIN PATIENT NAME: CHAIM BARONESho Berkowitz Conf#: [id number]/DID#: [id number] Authenticated by Geremias Cruz MD On 08/01/2018 11:31:20 AM at 1131 PATIENT NAME: CHAIM BARONESho Berkowitz 08:06:00 [facility] Cardiology Progress Note REPORT#:[id number] REPORT STATUS: Signed DATE:08/01/18 TIME: 805 PATIENT: TOSHIA BARONE UNIT #: [id number] [facility] AGE: 63 SEX: F ATTEND: Thalia Jeffries MD ADM AUTHOR: Geremias Cruz MD * ALL edits or amendments must be made on the electronic/computer document * Subjective Chief Complaint: CP HPI: continues with CP Patient reports: Yes: chest pain, shortness of breath. No: palpitations, swelling. Nursing reports: No: complaints. Objective General VS/I O: 24 hour I O ending at 0700: 08/01 0700 07/31 1900 Intake Total 480 Output Total Balance 480 Intake, Oral 480 Vital Signs: Date Time Temp Pulse Resp B/P B/P Pulse O2 O2 Flow FiO2 Mean Ox Delivery Rate 08/01 0414 97.9 56 16 137/83 100.9 100 08/01 0041 98.1 65 16 136/76 96.2 97 07/31 1946 98.2 66 16 133/76 95.2 98 07/31 1731 97.7 66 18 118/70 86.2 98 Room air / 1230 97.6 62 18 113/59 77 99 [...] Exam General appearance: alert, awake, oriented, no acute distress, pleasant, conversational, mental status normal Head/Eyes: atraumatic, normocephalic, PERRLA ENT: moist mucosal membranes Neck: full range of motion, supple/no meningismus, no bruit/NL carotids, no JVD, no masses or swelling Cardiovascular: CV assessment: regular rate and rhythm, BP pulses = bilaterally Murmur assessment: II/ KIMBERLY LLSB Respiratory: clear to auscultation, no distress Abdomen: soft, non-tender, no mass/organomegaly, no pulsatile mass Upper extremity: UE assessment: no edema, 2+ radial pulse Lower extremity: LE assessment: no edema, 2+ peripheral pulses Musculoskeletal: full range of motion Neuro/INSPECTOR RAG SORTING: alert, oriented X 3, CN II-XII intact, no motor deficits Psychiatry: normal affect, normal judgment/insight, normal mood, no hallucinations Results Findings/Data: Laboratory Tests 08/01 535 Chemistry Magnesium (1.6 - 2.3 MG/DL) 2.0 Triglycerides (MG/DL) 194 Cholesterol (<200 MG/DL) 206 LDL Cholesterol Measurd (0 - 99 MG/DL) 116 H HDL Cholesterol (40 - 59 MG/DL) 59 Laboratory Tests 08/01 535 Coagulation INR (0.8 - 1.1) 1.0 APTT (22.0 - 33.0 SECONDS) 26.7 PT Patient/Control Mix (9.6 - 11.6 SECONDS) 10.2 Laboratory Tests 08/01 535 Chemistry Magnesium (1.6 - 2.3 MG/DL) 2.0 Laboratory Tests 08/01 535 Coagulation APTT (22.0 - 33.0 SECONDS) 26.7 Results: labs reviewed, vital signs stable, echo personally reviewed, EKG personally reviewed, rhythm personally rev'd, x-ray personally reviewed, current med profile rev'd EKG Interpretation: normal sinus rhythm Telemetry Interpretation: SR Treatment Prophylaxis Treatment Prophylaxis Wiggins documentation: The data below has been imported from nursing documentation. Any exceptions have been [...] Rx Orders: Procedure Date/time Status EKG 08/01 0616 Active CATHETERIZATION 08/01 0600 Active PROTHROMBIN TIME 08/01 0500 Complete MAGNESIUM 08/01 0500 Complete LIPID PROFILE (CORONARY RISK) 08/01 0500 Complete PTT ACTIVATED 08/01 0500 Complete Clip Prep 07/31 1808 Active Code status: full code Plan discussed with: patient, family, admitting physician, patient care team, nurse at 0904 RPT #:[id number] END OF [id number] 07:50:[id number] [address] PATIENT NAME: TOSHIA BARONE ADMIT DATE: 07/30/18 ACCOUNT NO: [id number] [facility]GE[facility] 63 REPORT TYPE: ELECTROCARDIOGRAM SEX: F ADMITTING PHYSICIAN:Thalia Jeffries MD ATTENDING PHYSICIAN:Thalia Jeffries MD Order: [id number] Test Reason : CAD Test Date/Time Stamp: FriAug 01 2018 07:50:16 Blood Pressure : / mmHG Vent. Rate : 064 BPM Atrial Rate : 064 BPM P-R Int : 130 ms QRS Dur : 072 ms QT Int : 442 ms P-R-T Axes : 041 046 032 degrees QTc Int : 455 ms Normal sinus rhythm Normal ECG No previous ECGs available Confirmed by GEREMIAS CRUZ ([id number]) on 08/01/2018 11:38:20 AM Referred By: Thalia Jeffries Confirmed by:GEREMIAS CRUZ at 1138 PATIENT NAME: TOSHIA BARONE 16:43:00 [id number] [place] [address] PATIENT NAME: TOSHIA BARONE ADMIT DATE: 07/30/18 ACCOUNT NO: [id number] ROOM NO: [facility] AGE: 63 REPORT TYPE: ECHOCARDIOGRAM SEX: F ADMITTING PHYSICIAN:Thalia Jeffries MD ATTENDING PHYSICIAN:Thalia Jeffries MD *[facility]* [address] [place] [address] Transthoracic Echocardiogram Patient: Toshia Barone Study Date: 07/31/2018 BP: 125 / 64 Location: [facility] URN: [id number] : 1955 Age: 63 Height: 65 in / 165.1 cm Gender: F Weight: 164.6 lb / 74.8 kg BMI/BSA: 27.5 kg/m 2 / 1.87 m 2 *Ordering Physician: * Geremias Cruz MD *Interpreting Physician: * Geremias Cruz MD *Certified Histologic Technician: * Sasha Zabala RD, T Indications: CAD. Study data: Transthoracic echocardiogram. Procedure: Transthoracic echocardiography was performed. Images were obtained using a [employer] cardiac ultrasound machine. Image quality was suboptimal. The study was technically limited due to poor acoustic window availability. Complete 2D, complete spectral Doppler, and color Doppler. Patient room number: ERI3. Findings Left ventricle: The cavity size is normal. Wall thickness is normal. The estimated ejection fraction is 60-64%. Wall motion is normal; there are no regional wall motion abnormalities. Doppler parameters are consistent with abnormal left ventricular relaxation (grade 1 diastolic dysfunction). Right ventricle: The cavity size is normal. Systolic function is PATIENT NAME: TOSHIA BARONE normal. Systolic pressure is within the normal range. Ventricular septum: The ventricular septum is normal. Left atrium: The atrium is normal in size. Right atrium: The atrium is normal in size. Atrial septum: No defect or patent foramen ovale is identified. Aorta: The aorta is not visualized. Aortic valve: The valve is trileaflet. Thickening, consistent with sclerosis. There is no evidence of stenosis. There is trivial regurgitation. Mitral valve: The leaflets are normal thickness. There is trivial regurgitation. Tricuspid valve: The leaflets are normal thickness. There is trivial regurgitation. Pulmonic valve: Not well visualized. Pericardium: There is no pericardial effusion. No evidence of pleural fluid accumulation. Systemic veins: [...] 2.69 cm 2 ------- FS 34 % 27 - 45 LVOT/AV, Vpeak ratio 0.93 ------- PW, ED 0.7 cm 0.6 - DEIRDRE, Vmax 2.41 cm 2 ------- 0.9 PW, ES 1.0 cm -------- Mitral valve Value Ref IVS/PW, ED 1.25 -------- Peak E 0.8 m/sec ------- PATIENT NAME: TOSHIA BARONE EF 63 % 54 - 74 Peak [...] TDI 10 <=14 Pulmonic valve Value Ref AL v, ED 0.59 m/sec ------- LVOT Value Ref Diam, S 1.82 cm -------- Tricuspid valve Value Ref Area 2.6 cm 2 -------- TR peak v 1.91 m/sec <=2.8 Peak tim, S 0.84 m/sec -------- Peak RV-RA grad, S 15 mm Hg ------- Mean tim, [...] RVOT Value Ref PATIENT NAME: TOSHIA BARONE Peak v, S 0.67 m/sec -------- Peak grad, S 2 mm Hg -------- Left atrium Value Ref Area ES, A4C 15 cm 2 <=20 Conclusions Summary: Left ventricle: The cavity size is normal. Wall thickness is normal. The estimated ejection fraction is 60-64%. Wall motion is normal; there are no regional wall motion abnormalities. Doppler parameters are consistent with abnormal left ventricular relaxation (grade 1 diastolic dysfunction). Prepared and electronically signed by Geremias Cruz MD 07/31/2018 16:42 at 1643 PATIENT NAME: TOSHIA BARONE 08:31:00 [phone] [place] [address] PATIENT NAME: TOSHIA BARONE ADMIT DATE: 07/30/18 ACCOUNT NO: [id number] ROOM NO: [facility] AGE: 63 REPORT TYPE: CONSULTATION REPORT SEX: F ADMITTING PHYSICIAN:Thalia Jeffries MD ATTENDING PHYSICIAN:Thalia Jeffries MD CONSULTATION DATE: 07/31/2018 CONSULTING PHYSICIAN: Gulshan Rogers MD REFERRING PHYSICIAN: Thalia Jeffries MD REASON FOR CONSULTATION: We are asked to evaluate this patient for chest pain. HISTORY OF PRESENT ILLNESS: This is a 63-year-old female with a history of coronary artery disease, status post percutaneous transluminal coronary angioplasty and stent, who presented with complaints of retrosternal chest discomfort. She states it has been intermittent over the past month. It was up to 9/10 to 10/10. There was associated shortness of breath. She has also complained of nausea, but no emesis. The pain comes on randomly. She was transferred here from [facility] Emergency Room for further care. PAST MEDICAL HISTORY: 1. Coronary artery disease, status post percutaneous transluminal coronary angioplasty and stent. 2. Hyperlipidemia. 3. History of congestive heart failure. 4. COPD. PAST SURGICAL HISTORY: 1. Hysterectomy. 2. Status post lobectomy. 3. Hysterectomy. 4. . 5. Right varicose vein surgery. MEDICATIONS: Aspirin, melatonin, Colace, Lipitor, DuoNeb, Nitrostat, Lovenox, Tylenol p.r.n., and Zofran p.r.n. SOCIAL HISTORY: Prior smoker. No alcohol. ALLERGIES: PENICILLIN, REGLAN. FAMILY HISTORY: Positive for coronary artery disease. REVIEW OF SYSTEMS: CONSTITUTIONAL: No fever or chills. ENMT: No complaints of headache. PATIENT NAME: TOSHIA BARONE EYES: No complaints of blurred vision. RESPIRATORY: Shortness of breath associated with chest pain. CARDIOVASCULAR: Chest pain as noted above. GASTROINTESTINAL: Nausea with no emesis. GENITOURINARY: No complaints of urinary frequency or dysuria. MUSCULOSKELETAL: No complaints of joint pain. SKIN: No complaints of rash. NEUROLOGIC: No complaints of focal weakness. PHYSICAL EXAMINATION: GENERAL: Well-nourished female, in no acute distress. VITAL SIGNS: Temperature 97.9, blood pressure 125/64, pulse 63, respiratory rate 17, O2 saturations 97%. HEENT: Atraumatic, normocephalic. RESPIRATORY: Normal effort. LUNGS: Faint left basilar crackles. CARDIOVASCULAR: Normal S1 and S2. No S3 or S4. NECK: JVP is normal. No carotid bruits. EXTREMITIES: No edema. NEUROLOGIC: Cranial nerves II through XII are intact. No focal motor deficits noted. LABORATORY DATA: White blood cell count 8.3, hemoglobin 12.2, and platelets 155. Sodium 140, potassium 4, chloride 110, CO2 of 23, BUN 20, creatinine 0.6, glucose 105, calcium 8.9. Troponin negative. DIAGNOSTIC STUDIES: Electrocardiogram normal sinus rhythm. Nonspecific T-wave abnormality. IMPRESSION: 1. Chest pain -- no myocardial infarction. 2. Coronary artery disease, status post percutaneous transluminal coronary angioplasty and stent. 3. Hyperlipidemia. RECOMMENDATIONS: 1. Continue current medical treatment. 2. We will plan for coronary angiography in a.m. by Dr. Cruz. Dictated By: Gulshan Rogers MD WT: CON:ZANJELICA/PEPGR/NTS Conf#: [id number]/DID#: [id number] Authenticated by Gulshan Rogers MD On 08/03/2018 07:41:08 AM at 0741 PATIENT NAME: TOSHIA BARONE 18:12:00 [facility] ([facility]) History Physical - Adult REPORT#:[id number] REPORT STATUS: Signed DATE:07/30/18 TIME: 1811 PATIENT: TOSHIA BARONE UNIT #: [id number] ROOM/BED: [place] [address] : [birth year] AGE: 63 SEX: F ATTEND: Thalia Jeffries MD ADM AUTHOR: Thalia Jeffries MD * ALL edits or amendments must be made on the electronic/computer document * History of Present Illness HPI Chief complaint: Chest pain , shortness of breath 2 weeks, worsening over 1 day PCP: PCP: dr Cruz HPI: This is a 63y/o obese female admitted with substernal chest pain , going to the back, associated with SOB. The pain is intermitten, she is scheduled for cath this friday by DR Cruz. Since, the pain continued, pt was seen in [facility] ER, and transfed to here. History Past medical history: Reports: Congestive heart failure, COPD, Coronary artery disease, Depression/ mood disorder, Diabetes mellitus, GERD/gastritis, Hypertension, Transient ischemic attack, Chronic pain, Dyslipidemia, Thyroid disorder, Venous thromboembolism. Additional medical history: GERD, TIA, CHF hyperlipidemia pancreatitis, Kidney stones COPD Fatty liver, B12 def Past surgical history: Reports: Hysterectomy. Additional surgical history: upper lobe removal, no cancer stents, c section, hysterectomy right varicose vein Alcohol use: Denies EtOH use Drug use: Denies recreational drugs Smoking status for patients 13 years old or older: Current every day smoker Medication/Allergy-Vaccine Hx Allergies: Coded Allergies: Penicillins (Intermediate, RASH 05/01/17) metoclopramide (From REGLAN) (Intermediate, RASH 05/01/17) Review of Systems ROS comments: 10 points reviewed , pertinent findings noted Physical Exam VS/I O Vital Signs: Date Time Temp Pulse Resp B/P B/P Pulse O2 O2 Flow FiO2 Mean Ox Delivery Rate 07/30 1710 97.8 79 19 133/67 89 98 Room air General appearance: alert, awake, oriented Head/Eyes: atraumatic, clear cornea ENT: moist mucosal membranes Cardiovascular: regular rate rhythm, normal heart sounds Respiratory: clear to auscultation Abdomen/GI: active bowel sounds, soft Extremities: moves all Neuro/INSPECTOR RAG SORTING: alert, oriented X 3 Results Findings/Data: Laboratory [...] # (Auto) (1.0 - 3.8 K/mm3) 2.9 [place] # (Auto) (0.1 - 0.8 K/mm3) 0.37 [...] Result Date Time Pulse Ox 98 07/30 171 B/P 133/67 07/30 171 B/P Mean 89 07/30 171 O2 Delivery Room air 07/30 1709 Temp 97.8 07/30 171 Pulse 79 07/30 1710 Resp 19 07/30 1710 at 1821 RPT #:[id number] END OF [id number] 17:20:00 [facility] ([facility]) EMERGENCY PROVIDER REPORT REPORT#:[id number] REPORT STATUS: Signed DATE:07/30/18 TIME: 1720 PATIENT: TOSHIA BARONE UNIT #: [id number] [place] [address] AGE: 63 SEX: F PCP PHYS: No Primary or Family Physician SERVICE AUTHOR: Evangelista Saeed MD LOCATION: [facility] * ALL edits or amendments must be made on the electronic/computer document * HPI-Chest Pain 40 and Over General Confirmed Patient Yes Patient Type New patient Initial Greet Date/Time 07/30/[address] Cruz (Senior Biostatistician) Transferred From [facility] Presentation Chief Complaint Chest pain Hx Obtained From Patient Sudden in Onset? No Onset Occurred Days ago (2) Symptom Duration Since onset Progression since Onset Gradually worsening )( Migration/Movement None Severity: Onset Mild Severity: Current Moderate Associated with Reports: Shortness of Breath. Denies: Cough, non-productive, Fever, Nausea, Vomiting. Associated Other Reports Dry mouth, Decreased appetite Exacerbated by Exertion, moderate Context Related History Reports: Congestive heart failure, Diabetes mellitus, GERD, Hypertension. Free Text HPI Notes Free Text HPI Notes 63 y/o F w/Hx of CHF, DM, HTN, COPD, GERD, TIA, and thyroid disorder, is brought in by EMS from [facility] c/o worsening CP that began 2 days ago. Pt states her pain is exacerbated with exertion, and is worse at night. Pt reports assoc dyspnea on exertion, dry mouth, and decreased appetite. 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 Cruz, and she is scheduled to have a hearth cath on 08/01. Denies fever, chills, abdominal pain, nausea, or vomiting. Portions of this section were scribed by Nilsa Vaughan on 07/30/18 at 1735 Risk-Chest Pain 40 and Over Risk Stratification )( Coronary Artery Disease Risk factors reviewed, Diabetes mellitus, Hypertension )( Thoracic Aortic Dissection Risk factors reviewed, Hypertension )( Pulmonary Embolism Risk factors reviewed )( AMI-Aspirin Aspirin Last 24 Hrs Not indicated Portions of this section were scribed by Nilsa Vaughan on 07/30/18 at 1724 Review of Systems ROS Statements All systems rev neg except as marked. Focused Review of Systems Constitutional Denies: Chills, Fever. Respiratory Reports: Shortness of breath. Denies: Cough, productive. Cardiovascular Reports: Chest pain. Denies: Palpitations. GI Denies: Abdominal pain, Nausea, Vomiting. Musculoskeletal Denies: Extremity pain, Extremity swelling. Skin Denies: Abrasion, Laceration. Neurologic Denies: Dizziness, Headache, Syncope. Additional Review of Systems Eyes Denies: Discharge bilat, Redness bilat, Swelling bilat. Ears/Nose/Throat Denies: Throat swelling, Tongue swelling. Female Denies: Dysuria, Urination decreased, Urination increased. Portions of this section were scribed by Nilsa Vaughna on 07/30/18 at 1720 Past Medical History - Adult Stated Complaint CHEST PAIN, TX [facility] SYSTE Allergies Coded Allergies: Penicillins (Intermediate, RASH 05/01/17) metoclopramide (From REGLAN) (Intermediate, RASH 05/01/17) Past Medical History: Reports: Congestive heart failure, COPD, Depression/mood disorder, Diabetes mellitus, GERD/gastritis, Hypertension, Transient ischemic attack, Thyroid disorder, Venous thromboembolism. Past [...] Room air 07/30 1709 Temp 36.6 07/30 1710 Pulse 79 07/30 1710 Resp 07/30 1710 Last Documented: Result Date Time Pulse Ox 98 07/30 1710 B/P 133/67 07/30 1710 B/P Mean 89 07/30 1710 O2 Delivery Room air 07/30 1710 Temp 36.6 07/30 1710 Pulse 79 07/30 1710 Resp 07/30 1710 Review of Vital Signs Reviewed Focused PE General/Const General/Const Awake, Alert, No acute distress Eyes Eyes Atraumatic, EOMI MS Neck Neck Atraumatic, No tracheal deviation Resp/Chest Respiratory/Chest Breath sounds NL, Breath sounds = bilat, No respiratory distress, No rales, No rhonchi, No wheezing Cardiovascular Cardiovascular Heart rate NL, Regular rhythm, Heart sounds NL, No gallop, No murmurs, No rubs Abdomen/GI Abdomen/GI Soft, Non-tender, No distention Skin Skin Warm, Dry Neurologic Neurologic Speech NL, CN II - XII intact (grossly) Additional PE MS Head Head Atraumatic, Normocephalic Ears/Nose/Throat Ears/Nose/Throat Atraumatic, Airway patent Portions of this section were scribed by Nilsa Vaughan on 07/30/18 at 1735 Interpretation Diagnostics Lab Results Interpretation Results Laboratory Tests 07/30/18 1731: [Embedded Image Not Available] 07/30/18 1731: [Embedded Image Not Available] Laboratory Tests: 07/30 1731 Chemistry Sodium (137 [...] # (Auto) (1.0 - 3.8 K/mm3) 2.9 [place] # (Auto) (0.1 - 0.8 K/mm3) 0.37 Eos # (Auto) (0.0 - 0.2 K/mm3) 0.1 Baso # (Auto) (0.0 - 0.2 K/mm3) 0.02 Immature Gran % (0.0 - 2.0 %) 0.1 Nucleated RBCs # (Man) (0.0 - 0.1 K/mm3) 0.0 Lab Statement Laboratory studies reviewed and considered in the medical decision-making. Point of Care Testing Pulse Oximetry Pulse Ox % 98 On: Room air Interpretation Interpreted by me, Pulse oximetry normal Time 1710 ECG #1 Interpretation Date 07/30/18 Time 1716 Interpreted by ED physician NL ECG Interpretation Normal sinus rhythm, No STEMI Rate 73 Portions of this section were [...] 4 MG X1ED STA 07/30 1735 DC / IV 07/30 1736 1744 Gastrointestinal Drugs Sig/Huma Start time Last Medication Dose Route Stop Time Status Admin Ondansetron HCl 4 MG Q8H PRN PRN 07/30 1735 AC / IV 07/31 1632 2111 Portions of this section were scribed by Nilsa Vaughan on 07/30/18 at 1735 Patient Discharge Departure Vital Signs/Condition Vital Signs First Documented: Result Date Time Pulse Ox 98 07/30 1710 B/P 133/67 02/07 1710 B/P Mean 89 /07 1710 O2 Delivery Room air 07/30 1710 Temp 36.6 02/07 1710 Pulse 79 / 1710 Resp 19 07/30 1710 Last Documented: Result Date Time Pulse Ox 98 07/30 1710 B/P 133/67 02/07 1710 B/P Mean 89 / 1710 O2 Delivery Room air / 1710 Temp 36.6 02/ 1710 Pulse 79 02/ 1710 Resp 19 07/30 1710 All vital signs available at the time of this entry have been reviewed. Condition Stable Clinical Impression Clinical Impression Primary Impression: Chest pain Disposition Decision Admit Admit Physician Name ErikemmanuelKinzabilly Goins MD Admit Physician Hospitalist Request Time 1730 Request Date 07/30/18 )( Admission Accepts Yes )( Accepted Time 173 )( Accepted Date 07/30/18 Call Information will see patient, agrees with eval, agrees with plan Discharge/Care Plan Counseled Regarding Diagnosis, Lab results, Need for admission Admit Note I have spoken with the patient and/or caregivers. I have explained the patient's condition, diagnoses and treatment plan based on the information available to me at this time. I have answered the patient's and/or caregiver's questions and addressed any concerns. The patient and/or caregivers have as good an understanding of the patient's diagnosis, condition and treatment plan as can be expected at this point. The patient has been stabilized within the capability of the emergency department. The patient will be transported for further care and management or will be moved to an observation or inpatient service. I have communicated with the staff or medical practitioner taking over this patient's care. Quality Measures BP F/U for HTN Patient admitted 12-Lead ECG for CP Performed documented Supervising Physician Note Scribe Statement Nilsa Vaughan, 07/30/18 1734, scribing for and in the presence of Dr. Evangelista Saeed MD. Signed By: Nilsa Vaughan, 07/30/18 1734 Provider Scribed Statement I personally performed the services described in this documentation and reviewed the documentation that was dictated to the scribe(s) in my presence, and it accurately records my words and actions. Evangelista Saeed MD, 07/30/18 Portions of this section were scribed by Nilsa Vaughan on 07/30/18 at 1730 at 0608 [facility] #:[id number] END OF REPORTHCAWU
--- NOTE | 2024-02-26 17:36 | RAD REPORT ---
EXAM DESCRIPTION: RADChest Single View02/26/2024 4:45 pm CLINICAL HISTORY: upper abdomen pain COMPARISON: Chest Pa And Lat (2 Views) dated 10/21/2023; Chest Single View dated 06/28/2023; Chest Sing le View dated 03/01/2023; Chest Single View dated 05/25/2022 TECHNIQUE: Portable AP view of the chest. FINDINGS: The lungs are clear apart from stable left basilar atelectasis. No pneumothorax or effusi on. The cardiomediastinal contours are unchanged, with left suprahilar surgical clips. Deformities a long the left ribs are stable. IMPRESSION: No acute cardiopulmonary process. Stable findings as above.
[2024-02-26 17:42] LABS: Absolute Eosinophils 0.1 K/uL (0-0.5); Absolute Lymphocytes (CBC) 2.3 K/uL (0.7-4.9); Absolute Monocytes 0.4 K/uL (0.1-1.3); Absolute Neutrophil 3.7 K/uL (1.8-8.0); Basophils % 0.4 % (0-1.3); Eosinophils % 0.9 % (0-4.4); Hematocrit 43.7 % (36.0-45.0); Hemoglobin 14.1 g/dL (12.0-15.0); Lymphocytes % 35.1 % (15.3-44.8); MCH 29.6 pg (27.0-35.0); MCHC 32.3 g/dL (32.0-36.0); MCV 91.7 fL (80-100); MPV 8.2 fL (7.6-11.3); Neutrophils % 57.6 % (41.7-73.7); Nucleated Red Blood Cells % 0.2 % (0-0); Platelets 147 thou/uL (152-406); RBC Red Blood Cell Count 4.77 M/uL (3.86-4.86); Red Cell Distribution Width 14.2 % (12.1-15.2)
[2024-02-26 17:48] LABS: PT Prothrombin Time 11.8 SECONDS (9.4-12.5); Protime INR 1.06
[2024-02-26] MEDS ORDERED: FAMOTIDINE 20 MG/2 ML VIAL IV ONE (17:48)
[2024-02-26] MEDS ORDERED: ONDANSETRON 4 MG/2 ML VIAL ONE (17:48)
[2024-02-26 18:13] LABS: ALT/SGPT 30 U/L (13-56); Albumin 3.7 g/dL (3.4-5.0); Alkaline Phosphatase 100 U/L (45-117); Anion Gap 11.3 mEq/L (5.0-15.0); BUN Blood Urea Nitrogen 18 mg/dL (7-18); Bicarbonate 21 mEq/L (21-32); Bilirubin Direct 0.2 mg/dL (0-0.2); Bilirubin Indirect, Calculated 0.6 mg/dL (0.2-0.8); Bilirubin Total 0.8 mg/dL (0.2-1.0); Globulin 3.7 g/dL (2.3-3.5); Glomerular Filtration Rate 90 ml/min (=/>90); Glucose Level 97 mg/dL (74-106); Lipase 27 U/L (13-75); Protein, Total 7.4 g/dL (6.4-8.2); Sodium Level 139 mEq/L (136-145)
[2024-02-26 18:14] LABS: AST/SGOT 35 U/L (15-37); Magnesium 2.1 mg/dL (1.6-2.4); Potassium 4.3 mEq/L (3.5-5.1); Troponin High Sensitivity < 3.0 pg/mL (<58.9)
--- NOTE | 2024-02-26 19:25 | RAD REPORT ---
EXAM DESCRIPTION: CT - Abdomen Pelvis W Contrast - 02/26/2024 6:45 pm CLINICAL HISTORY: upper abdomen pain COMPARISON: Abdomen Pelvis W Contrast dated 11/12/2022; Abdomen Pelvis W Contrast dated 12/15/2021 ; Abdomen Pelvis W Contrast dated 01/24/2020; Abdomen Pelvis W Contrast dated 08/26/2019 TECHNIQUE: Thin cut axial CT imaging of the abdomen and pelvis was performed following intravenous a dministration of iodinated contrast. Multiplanar reformats were generated and reviewed. All CT scans are performed using dose optimization technique as appropriate and may include automated exposure control or mA/KV adjustment according to patient size. FINDINGS: No suspicious findings in the lung bases. The liver, spleen, adrenal glands, and pancreas show no suspicious findings. Status post cholecystect shawn. Symmetric renal function is seen with no hydronephrosis or radiopaque calculi. Small exophytic land leasing information clerk ior right mid to lower pole hypoattenuating 9 mm cortical lesion may be solid. Other small fluid dens ity cortical lesions bilaterally are probably stable and may suggest small cysts, not well characteri zed. No dilated bowel loops or bowel wall thickening. No free air, free fluid or inflammatory stranding. N o hernia, mass or bulky lymphadenopathy. The urinary bladder is without significant finding. No suspicious bony findings. IMPRESSION: No acute intra-abdominal process. Incidentally noted 9 mm posterior right renal mid to lower pole possibly solid cortical lesion. This can be further evaluated by renal mass protocol CT or MRI on outpatient basis.
[2024-02-26 19:44] LABS: Urine Bacteria <20 /HPF (<20); Urine Bilirubin NEGATIVE (Negative); Urine Blood 1+ (Negative); Urine Clarity Clear (Clear); Urine Color Light-Yellow (Yellow); Urine Culture Reflex Order NOT NEEDED; Urine Glucose NEGATIVE (Negative); Urine Ketones NEGATIVE (Negative); Urine Microscopic Reflex YN ORDER UMIC; Urine Nitrite NEGATIVE (Negative); Urine Protein TRACE (Negative); Urine Urobilinogen Normal (Normal); Urine WBC <5 /HPF (<5)
[2024-02-26 20:27] LABS: Specific Gravity > 1.030 (1.005-1.030)
--- NOTE | 2024-02-26 20:36 | ER ---
Nurse's Notes [facility] Name: Toshia Barone Age: 69 yrs Sex: Female : 1955 Arrival Date: 02/26/2024 Time: 15:54 Bed 14 Private MD: Diagnosis: Nausea with vomiting, unspecified;Diarrhea, unspecified;Upper abdominal pain, unspecified Presentation: 02/25 16:15 Chief complaint: Patient states: Pt c/o Rt upper Quad pain, n/v and diarrhea for approx dd2 4 days. Hx of pancreatitis. Coronavirus screen: At this time, the client does not indicate any symptoms associated with coronavirus-19. Ebola Screen: No symptoms or risks identified at this time. Initial Sepsis Screen: Does the patient meet any 2 criteria? No. Patient's initial sepsis screen is negative. Does the patient have a suspected source of infection? No. Patient's initial sepsis screen is negative. Risk Assessment: Do you want to hurt yourself or someone else? Patient reports no desire to harm self or others. Onset of symptoms is unknown. 16:15 Method Of Arrival: Ambulatory dd2 16:15 Acuity: SHARON 3 dd2 Triage Assessment: 16:18 General: Appears in no apparent distress. Behavior is calm, cooperative, appropriate dd2 for age. Pain: Complains of pain in right upper quadrant. GI: Reports upper abdominal pain, diarrhea, nausea, vomiting. Historical: - Allergies: 16:18 PENICILLINS; dd2 16:18 Reglan; dd2 16:18 Ritalin; dd2 - PMHx: 16:18 B12 deficiency; CHF; COPD; CVA; diabetes mellitus; DVT; fatty liver; GERD; dd2 Hyperlipidemia; Hypertension; Hypothyroidism; Kidney stones; Myocardial infarction; Pancreatitis; TIA; - PSHx: 16:18 Cholecystectomy; Left upper lobe removed from lung; Total abdominal hysterectomy; dd2 - Immunization history:: Adult Immunizations unknown. - Infectious Disease History:: Denies. - Social history:: Smoking status: Patient denies any tobacco usage or history of. Screenin:12 [facility] ED Fall Risk Assessment (Adult) History of falling in the last 3 months, kj2 including since admission No falls in past 3 months (0 pts) Confusion or Disorientation No (0 pts) Intoxicated or Sedated No (0 pts) Impaired Gait No (0 pts) Mobility Assist Device Used No (0 pt) Altered Elimination No (0 pt) Score/Fall Risk Level 0 - 2 = Low Risk Maintained a safe environment, Hourly rounding (assess needs \T\ fall precautionary measures) done. Abuse screen: Denies threats or abuse. Denies injuries from another. Nutritional screening: No deficits noted. Tuberculosis screening: No symptoms or risk factors identified. Assessment: 16:50 General: Appears in no apparent distress. Behavior is calm, cooperative. Neuro: Level kj2 of Consciousness is awake, alert, Oriented to person, place, situation. Cardiovascular: Patient's skin is warm and dry. Respiratory: Airway is patent Respiratory effort is unlabored. GI: Bowel sounds present X 4 quads. GI: Reports nausea, vomiting. : No deficits noted. 19:28 Reassessment: No changes from previously documented assessment. Patient and/or family rg5 updated on plan of care and expected duration. Pain level reassessed. Patient is alert, oriented x 3, equal unlabored respirations, skin warm/dry/pink. 19:28 GI: Abd is soft and non tender X 4 quads. rg5 20:30 Reassessment: Patient and/or family updated on plan of care and expected duration. Pain rg5 level reassessed. Patient is alert, oriented x 3, equal unlabored respirations, skin warm/dry/pink. Patient states feeling better. Patient states symptoms have improved. Vital Signs: 16:15 BP 140 / 91; Pulse 74; Resp 17; Temp 96.8; Pulse Ox 100% ; Weight 81.19 kg; dd2 16:50 BP 144 / 85; Pulse 68; Resp 18; Temp 98.2; Pulse Ox 99% on R/A; kj2 18:14 BP 177 / 82; Pulse 66; Resp 18; Pulse Ox 100% on R/A; kj2 19:27 BP 148 / 100; Pulse 75; Resp 17; Temp 98(O); Pulse Ox 98% ; Pain 5/10; rg5 20:30 BP 138 / 79; Pulse 67; Resp 17; Temp 98; Pulse Ox 97% on R/A; Pain 2/10; rg5 19:27 Pain Scale: Adult rg5 20:30 Pain Scale: Adult rg5 ED Course: 15:58 Patient arrived in ED. mg5 15:59 Juwan Hargrove PA is PHCP. cp 15:59 Arian Clifford DO is Attending Physician. cp 16:18 Triage completed. dd2 16:18 Arm band placed on right wrist. Patient placed in an exam room, on a stretcher, on dd2 pulse oximetry, Patient notified of wait time. 16:47 XRAY Chest (1 view) In Process Unspecified. EDMS 16:50 Ariana Everett, REZA is Primary Nurse. kj2 17:30 Initial lab(s) drawn, by me, sent to lab. Inserted saline lock: 22 gauge in left aa5 forearm, using aseptic technique. Blood collected. Flushed with 10 mL NS. 18:11 Missed attempt(s): 20 gauge in left antecubital area. kj2 18:13 Patient has correct armband on for positive identification. Bed in low position. Call kj2 light in reach. 18:13 Provided Education on: call light, fall precautions. kj2 18:13 No provider procedures requiring assistance completed. kj2 18:46 CT Abd/Pelvis - IV Contrast Only In Process Unspecified. EDMS 19:06 Report given to REZA Capone. kj2 19:30 Awaiting lab results, Awaiting radiology results. rg5 20:23 Donnie Shaw MD is Attending Physician. cp 21:00 IV discontinued, bleeding controlled, No redness/swelling at site. Pressure dressing rg5 applied. Administered Medications: 09:15 Drug: morphine IVP or IV 4 mg IVP once over 4 mins Route: IVP; Infused Over: 4 mins; rg5 Site: left antecubital; 21:06 Follow up: Response: No adverse reaction; Pain is decreased rg5 17:45 Drug: Famotidine IVP 20 mg IVP once; dilute with 10 mL 0.9% NaCl; give over 2 minutes kj2 Route: IVP; Site: left forearm; 18:15 Follow up: Response: No adverse reaction kj2 17:48 Drug: Ondansetron IVP 4 mg IVP once; over 2 minutes Route: IVP; Site: left forearm; kj2 18:30 Follow up: Response: No adverse reaction; Nausea is decreased kj2 Medication: 18:13 VIS not applicable for this client. kj2 Outcome: 20:35 Discharge ordered by . cp 21:00 Discharged to home ambulatory, rg5 21:00 Condition: stable 21:00 Discharge instructions given to patient, Instructed on discharge instructions, follow rg5 up and referral plans. Demonstrated understanding of instructions, follow-up care, medications, Prescriptions given X 1, 21:04 Patient left the ED. rg5 Signatures: Dispatcher [employer] EDCT Shara Donovan RN RN aa5 Juwan Hargrove PA PA cp Gardner Joleen mg5 Liborio Hernandes RN RN rg5 Ariana Everett RN RN [email or web address] CAM HOWARD RN RN dd2 Corrections: (The following items were deleted from the chart) 21:19 21:18 Patient left the ED. rg5 rg5
--- NOTE | 2024-02-26 20:36 | EDPHYS ---
Physician Documentation [facility] Name: Toshia Barone Age: 69 yrs Sex: Female : 1955 Arrival Date: 02/26/2024 Time: 15:54 Bed 14 Private MD: ED Physician Donnie Shaw HPI: 02/25 16:33 This 69 yrs old Female presents to ER via Ambulatory with complaints of cp Abdominal Pain, Nausea/Vomiting. 16:33 The patient presents with abdominal pain in the upper abdomen. cp 16:33 Onset: The symptoms/episode began/occurred 4 day(s) ago. cp 16:33 The symptoms radiate to Associated signs and symptoms: Pertinent positives: nausea and cp vomiting, diarrhea, radiating pain to chest, Pertinent negatives: blood in stools, constipation, fever, vomiting blood. The symptoms are described as similar to pain when diagnosed with pancreatitis. Severity of pain: in the emergency department the pain is unchanged despite home interventions. Historical: - Allergies: 16:18 PENICILLINS; dd2 16:18 Reglan; dd2 16:18 Ritalin; dd2 - PMHx: 16:18 B12 deficiency; CHF; COPD; CVA; diabetes mellitus; DVT; fatty liver; GERD; dd2 Hyperlipidemia; Hypertension; Hypothyroidism; Kidney stones; Myocardial infarction; Pancreatitis; TIA; - PSHx: 16:18 Cholecystectomy; Left upper lobe removed from lung; Total abdominal hysterectomy; dd2 - Immunization history:: Adult Immunizations unknown. - Infectious Disease History:: Denies. - Social history:: Smoking status: Patient denies any tobacco usage or history of. ROS: 16:40 Constitutional: Negative for body aches, chills, fever, cp 16:40 Eyes: Negative for injury, pain, redness, and discharge, cp 16:40 ENT: Negative for drainage from ear(s), ear pain, sore throat, difficulty swallowing, difficulty handling secretions, 16:40 Cardiovascular: Positive for radiating pain from abdomen, Negative for edema, palpitations, 16:40 Respiratory: Negative for cough, shortness of breath, wheezing, 16:40 Abdomen/GI: Positive for abdominal pain, nausea, vomiting, and diarrhea, Negative for constipation, black/tarry stool, rectal bleeding, 16:40 Back: Positive for radiated pain, 16:40 Neuro: Negative for altered mental status, dizziness, headache, syncope, weakness, 16:40 All other systems are negative, Exam: 16:45 Constitutional: The patient appears in no acute distress, alert, awake, cp non-diaphoretic, non-toxic, well developed, well nourished, uncomfortable, 16:45 Head/Face: Normocephalic, atraumatic. cp 16:45 Eyes: Periorbital structures: appear normal, Conjunctiva: normal, no exudate, no injection, Sclera: no appreciated abnormality, Lids and lashes: appear normal, bilaterally, 16:45 ENT: External ear(s): are unremarkable, Nose: is normal, Mouth: Lips: moist, Posterior pharynx: Airway: no evidence of obstruction, patent, 16:45 Chest/axilla: Inspection: normal, 16:45 Cardiovascular: Rate: normal, Rhythm: regular, Edema: is not appreciated, JVD: is not appreciated, 16:45 Respiratory: the patient does not display signs of respiratory distress, Respirations: normal, no use of accessory muscles, no retractions, labored breathing, is not present, Breath sounds: are clear throughout, no decreased breath sounds, no stridor, no wheezing, 16:45 Abdomen/GI: Inspection: obese Bowel sounds: active, all quadrants, Palpation: soft, in all quadrants, moderate abdominal tenderness, in the epigastric area and right upper quadrant, rebound tenderness, is not appreciated, involuntary guarding, is not appreciated, 16:45 Back: CVA tenderness, is absent, 16:45 Skin: no rash present. 16:45 Neuro: Orientation: to person, place \T\ time. Mentation: is normal, Motor: moves all fours, strength is normal, 18:07 ECG was reviewed by the Attending Physician. cp Vital Signs: 16:15 BP 140 / 91; Pulse 74; Resp 17; Temp 96.8; Pulse Ox 100% ; Weight 81.19 kg; dd2 16:50 BP 144 / 85; Pulse 68; Resp 18; Temp 98.2; Pulse Ox 99% on R/A; kj2 18:14 BP 177 / 82; Pulse 66; Resp 18; Pulse Ox 100% on R/A; kj2 19:27 BP 148 / 100; Pulse 75; Resp 17; Temp 98(O); Pulse Ox 98% ; Pain 5/10; rg5 20:30 BP 138 / 79; Pulse 67; Resp 17; Temp 98; Pulse Ox 97% on R/A; Pain 2/10; rg5 19:27 Pain Scale: Adult rg5 20:30 Pain Scale: Adult rg5 MDM: 16:20 Patient medically screened. 20:35 Data reviewed: vital signs, nurses notes, lab test result(s), radiologic studies, CT cp scan, plain films, and as a result, I will discharge patient. 20:35 Differential diagnosis: cholecystitis, Cholelithiasis, gastritis, pancreatitis, Peptic cp Ulcer Disease, Perf. Duodenal Ulcer, Perf. Gastric Ulcer, Ureterolithiasis, urinary tract infection. I considered the following discharge prescriptions or medication management in the emergency department Medications were administered in the Emergency Department. See MAR. Care significantly affected by the following chronic conditions: Diabetes, Congestive Heart Failure, Chronic Obstructive Pulmonary Disease, Liver Disease. Counseling: I had a detailed discussion with the patient and/or guardian regarding the historical points, exam findings, and any diagnostic results supporting the discharge/admit diagnosis, lab results, radiology results, to return to the emergency department if symptoms worsen or persist or if there are any questions or concerns that arise at home. Response to treatment: the patient's symptoms have markedly improved after treatment, and as a result, I will discharge patient. Special discussion: Based on the patient's Hx, exam, and Dx evaluation, there is no indication for emergent surgery or inpatient Tx. It is understood by the patient/guardian that if the Sx's persist or worsen they need to return immediately for re-evaluation. 02/25 16:29 Order name: Basic Metabolic Panel; Complete Time: 19:35 cp 02/25 19:35 Interpretation: Normal except: CL 111. cp 02/25 16:29 Order name: CBC with Diff; Complete Time: 17:49 cp 02/25 17:49 Interpretation: Normal except: PLT 147. cp 02/25 16:29 Order name: LFT's; Complete Time: 19:35 02/25 19:35 Interpretation: Normal except: GLOB 3.7; A/G 1.0. 02/25 16:29 Order name: Magnesium; Complete Time: 19:35 02/25 16:29 Order name: PT-INR; Complete Time: 17:49 cp 02/25 16:29 Order name: Troponin HS; Complete Time: 19:35 cp 02/25 19:35 Interpretation: Reviewed. cp 02/25 16:29 Order name: Urinalysis w/ reflexes; Complete Time: 20:27 cp 02/25 20:27 Interpretation: Normal except: Urine SG > 1.030; UBLD 1+; UPROT TRACE; URBC 5-10. 02/25 16:29 Order name: Lipase; Complete Time: 19:35 cp 02/25 16:29 Order name: XRAY Chest (1 view); Complete Time: 17:49 cp 02/25 19:36 Interpretation: Report review. cp 02/25 17:50 Order name: CT Abd/Pelvis - IV Contrast Only; Complete Time: 19:35 cp 02/25 20:29 Interpretation: Report reviewed. 02/25 16:29 Order name: Cardiac monitoring; Complete Time: 18:06 cp 02/25 16:29 Order name: EKG - Nurse/Tech; Complete Time: 18:06 cp 02/25 16:29 Order name: IV Saline Lock; Complete Time: 18:06 cp 02/25 16:29 Order name: Labs collected and sent; Complete Time: 18:07 cp 02/25 16:29 Order name: O2 Per Protocol; Complete Time: 18:07 cp 02/25 16:29 Order name: O2 Sat Monitoring; Complete Time: 18:07 cp 02/25 19:37 Order name: PO challenge; Complete Time: 20:24 cp EC:07 Rate is 64 beats/min. Rhythm is regular. NC interval is normal. QRS interval is normal. cp QT interval is normal. Interpreted by me. Reviewed by me. Administered Medications: 09:15 Drug: morphine IVP or IV 4 mg IVP once over 4 mins Route: IVP; Infused Over: 4 mins; rg5 Site: left antecubital; 21:06 Follow up: Response: No adverse reaction; Pain is decreased rg5 17:45 Drug: Famotidine IVP 20 mg IVP once; dilute with 10 mL 0.9% NaCl; give over 2 minutes kj2 Route: IVP; Site: left forearm; 18:15 Follow up: Response: No adverse reaction kj2 17:48 Drug: Ondansetron IVP 4 mg IVP once; over 2 minutes Route: IVP; Site: left forearm; kj2 18:30 Follow up: Response: No adverse reaction; Nausea is decreased kj2 Disposition: 02/26 00:32 Co-signature as Attending Physician, Donnie Shaw MD I agree with the assessment sp4 and plan of care. I reviewed the patient's care provided by the Advanced Practice Provider and agree with the diagnosis and treatment plan. Disposition Summary: 02/26/24 20:35 Discharge Ordered Notes: Location: Home cp Problem: new cp Symptoms: have improved cp Condition: Stable cp Diagnosis - Nausea with vomiting, unspecified cp - Diarrhea, unspecified cp - Upper abdominal pain, unspecified cp Followup: cp - With: Private Physician - When: 2 - 3 days - Reason: Recheck today's complaints Discharge Instructions: - Discharge Summary Sheet cp - Abdominal Pain, Adult cp - Food Choices to Help Relieve Diarrhea, Adult cp - Diarrhea, Adult cp - Nausea and Vomiting, Adult cp Forms: - Medication Reconciliation Form cp - Antibiotic Education cp - Prescription Opioid Use cp - Patient Portal Instructions cp - Leadership Thank You Letter cp Prescriptions: - ondansetron 8 mg Oral Tablet,disintegrating - take 1 tablet ORAL route every 12 hours; 15 tablet; Refills: 0, Product cp Selection Permitted Signatures: Dispatcher [employer] EDMS Juwan Hargrove PA PA cp Donnie Shaw MD MD sp4 Liborio Hernandes RN RN rg5 Ariana Everett RN RN kj2 CAM HOWARD RN RN dd2 Corrections: (The following items were deleted from the chart) 02/25 16:29 16:29 BASIC METABOLIC PANEL+C.LAB.BRZ ordered. EDMS EDMS 16:29 16:29 CBC+H.LAB.BRZ ordered. EDMS EDMS 16:29 16:29 HEPATIC FUNCTION+C.LAB.BRZ ordered. EDMS EDMS 16:29 16:29 MAGNESIUM+C.LAB.BRZ ordered. EDMS EDMS 16:29 16:29 PROTIME (+INR)+COAG.LAB.BRZ ordered. EDMS EDMS 16:29 16:29 Troponin High Sensitivity+C.LAB.BRZ ordered. EDMS EDMS 16:29 16:29 Urinalysis+U.LAB.BRZ ordered. EDMS EDMS 16:29 16:29 LIPASE+C.LAB.BRZ ordered. EDMS EDMS 16:29 16:29 Chest Single View+RAD.RAD.BRZ ordered. EDMS EDMS 17:50 17:50 Abdomen Pelvis W Con+CT.RAD.BRZ ordered. EDMS EDMS 20:25 20:23 Feliciano ordered. cp cp
[2024-02-26 21:33] VITALS: TEMP 98
[2024-02-26 21:35] VITALS: BP 138/79; O2SAT 97
--- NOTE | 2024-02-27 14:06 | EKG ---
Test Date: 2024-02-26 Test Time: 18:00:28 [employer] T[employer] Helper: CARON MEASUREMENT RESULTS: Intervals: Rate: 64 DC: 136 QRSD: 70 QT: 426 QTc: 439 Valier: P: 12 DC: 136 QRS: 11 T: 86 INTERPRETIVE STATEMENTS: Normal sinus rhythm Normal ECG Compared to ECG 06/28/2023 13:58:16 ST (T wave) deviation no longer present Electronically Signed On 02-27-24 14:05:21 CDT by Benton Davison
== END 2024-02-26 21:18 | disposition home or self-care (01) ==
LOC: ER 15:54
DX: R11.2 Nausea with vomiting, unspecified (principal); R19.7 Diarrhea, unspecified; R10.10 Upper abdominal pain, unspecified
CPT/HCPCS: 93005; 85025; 81001; 80048; 36415; 83735; 85610; 80076; 84484; 83690; 74177; 71045; 99284; Q9967; J2405

== ENCOUNTER 2024-06-05 13:39 | Emergency (ER) | payer OTHER ==
--- OUTSIDE RECORDS SUMMARY | 2024-06-05 13:53 | XMS REPORT | Continuity of Care Document ---
Author Name Unknown Address [address] [facility] [place] [address] [facility] thconnect Address [address] [facility] [address] [place] [address] Care Team Providers Care Health Policy Nurse Name Role Phone Geremias [facility] Sirisha Primary Care Physician [phone] Destinee Gould Attending Clinician Unavail able Tonio Miller Attending Clinician Unavailable TYLER CHANG Attending Clinician Unavailab BRAEDEN Melton Attending Clinician Unavailable ROBERT VERMA Attending Clinician Unavailable Tyler Chang MD Attending Clinician [phone] TONIE MILLER Attending Clinician Unavailable TONIE MILLER Attending Clinician Unavailable Bernardo SALVADOR, Tyler Bush Attending Clinician [phone] Pob, 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 Attending Clinician UnavailRACHELLE Armstrong Attending Clinician UnavailRACHELLE Maldonado Attending Clinician Unavaila aditya Doctor Unassigned, [place] Attending Clinician U bertram Hickman RN, Shante Palumbo Attending Clinician UnaFABRICIO Carrera Attending Clinician FABRICIO Steen Attending Clinician Otoniel Love PA-C Attending Clinician [phone] Only, Adc Test Attending Clinician Unavailable OTONIEL GEIGER Attending Clinician Unavailable Amalia Malone MD Attending Clinician [phone] AMALIA MALONE Attending Clinician UnavailSARA Sneed Attending Clinician Unavailable Teddy Sweeney Attending Clinician [phone] MISTY AGUIRRE Attending Clinician Unavailable Misty Aguirre MD Attending Clinician [phone] Room, [facility] Uro Procedure Attending Clinician Unav Angle Domingo MD Attending Clinician [phone] ANGLE ELIZABETH Attending Clinician Unavail able TANG PIERCE Attending Clinician Unavailable ALBERT LEPE Attending Clinician Unavailab Tang Crespo MD Attending Clinician [phone] BENITEZ CUMMINGS Attending Clinician Unavailable Jules Gordon MD Attending Clinician [phone] JULES GORDON Attending Clinician Unavailable GEREMIAS YOST Attending Clinician Unavailable CATALINA PARKER Attending Clinician UnavailDENNYS Lane Attending Clinician Unavailable Braeden Delong MD Attending Clinician [phone] Jamari Hicks MD Attending Clini nixon Umair Arreaga DO Attending Clinician [phone] MUAIR ARREAGA Attending Clinician Unavailable Tang Messina CRNA Attending Clinician [phone] Leatha Johnson MD Attending Clinician [phone] Livai Madrigal Attending Clinician [phone] AMALIA CONTRERAS Attending Clinician Darin Schofield MD, Fawad Walters Attending Clinician [phone] Zee Alonzo MD Attending Clinician [phone] Nette SALVADOR, Amalia Jackson Attending Clinician +[phone] Minerva Ba CRNA Attending Clinician [phone] Stalin Schreiber MD Attending Clinician [phone] Ashley Valdez MD Attending Clinician [phone] Catalina Parker MD Attending Clinician [phone] Raju_P Attending Clinician Unavailable TYLER CHANG Admitting Clinician Unavailab BRAEDEN Melton Admitting Clinician Unavailable Tyler Chang MD Admitting Clinician [phone] Tylre Chang MD Admitting Clinician [phone] UMAIR ARREAGA Admitting Clinician Unavailable Braeden Delong MD Admitting Clinician [phone] ZEE ALONZO Admitting Clinician Unavailable Zee Alonzo MD Admitting Clinician [phone] Raju_P Admitting Clinician Unavailable Payers Payer Name Policy Type Policy Number Effective Date Expirati on Date Source [facility] DUAL COMP HMO D SNP [id number] 2023 00:00:00 [place] [id number] 2023 00:00:00 [employer] DUAL CORDINATION [employer] HMO SNP [id number] 2023 00:00:00 [employer] DUAL COORDINATION HMO SNP [id number] 2022 00:00:00 [facility] [place] STAR PLUS [id number] 2011 00:00:00 [facility] STAR Plus [facility] 53 [id number] [facility] [id number] 2022 00:00:00 [facility] Community STAR Plus [place] 53 [id number] 2021 00:00:00 [facility]-STAR PLUS C1 [id number] 2017 00:00:00 [facility]-STAR PLUS C1 [id number] 2017 00:00:00 [facility]-STAR PLUS C1 [id number] 2017 00:00:00 [facility]-STAR PLUS C1 [id number] 2017 00:00:00 [facility]-STAR PLUS C1 [id number] 2017 00:00:00 [facility]STAR PLUS C1 [id number] 2017 00:00:00 [facility]-STAR PLUS C1 [id number] 2017 00:00:00 [facility]STAR PLUS C1 [id number] 2017 00:00:00 [facility]-STAR PLUS C1 [id number] 2017 00:00:00 [facility]-STAR PLUS C1 [id number] 2017 00:00:00 [facility]-STAR PLUS C1 [id number] 2017 00:00:00 [facility] STAR PLUS (MEDICAID HMO) [id number] 2013 00:00:00 Problems Condition Name Condition Details Condition Category Status Onset Date Resolution Date Last Treatment Date Treating Clinician Comments Source Vaginal itching Vaginal itching Disease Active 07-17 00:00: 00 [facility] Vulvar abscess Vulvar abscess Disease Active 07-17 00:00: 00 [facility] Restless legs Restless legs Disease Active 03-13 00:00: 00 [facility] Varicose veins of lower extremity Varicose veins of lower extremity Disease Active 03-13 00:00: 00 [facility] Right ureteral stone Right ureteral stone Disease Active 09-20 00:00: 00 Overview: Formattin g of this note might be different from the original. Added automatic ally from request for surgery [id number] [facility] Pyelonephr itis Pyelonephr itis Disease Active 09-09 00:00: 00 [facility] Hemorrhoid s, unspecifie d hemorrhoid type Hemorrhoid s, unspecifie d hemorrhoid type Disease Active 02-17 00:00: 00 Overview: Formattin g of this note might be different from the original. Added automatic ally from request for surgery [id number] [facility] Seizure Seizure Disease Active 02-03 00:00: 00 [facility] Chest pain, atypical Chest pain, atypical Disease Active 09-24 00:00: 00 [facility] Chronic confusion Chronic confusion Disease Active 09-24 00:00: 00 [facility] Hypothyroi dism (acquired) Hypothyroi dism (acquired) Disease Active 07-20 00:00: 00 [facility] Unstable angina Unstable angina Disease Active 07-19 00:00: 00 [facility] Dyspnea Dyspnea Disease Active 07-18 00:00: 00 [facility] Personal history of transient ischemic attack (TIA), and cerebral infarction without residual deficits Personal history of transient ischemic attack (TIA), and cerebral infarction without residual deficits Disease Active 09-11 00:00: 00 [facility] 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 Disease Active 09-11 00:00: 00 [facility] Chronic coronary artery disease Chronic coronary artery disease Disease Active 09-11 00:00: 00 [facility] DM (diabetes mellitus) DM (diabetes mellitus) Disease Active 09-11 00:00: 00 [facility] Chronic coronary artery disease Chronic coronary artery disease Disease Active 09-11 00:00: 00 [facility] Cervical spondylosi s without myelopathy Cervical spondylosi s without myelopathy Disease Active 12-05 00:00: 00 [facility] Displaceme nt of lumbar interverte bral disc without myelopathy Displaceme nt of lumbar interverte bral disc without myelopathy Disease Active 12-05 00:00: 00 [facility] Old myocardial infarction Old myocardial infarction Disease Active 12-01 00:00: 00 [facility] Chronic depressive personalit y disorder Chronic depressive personalit y disorder Disease Active 11-03 00:00: 00 [facility] Anxiety state Anxiety state Disease Active 11-03 00:00: 00 Overview: Formattin g of this note might be different from the original. ICD10 Diagnosis Term Log [employer] [facility] Other chest pain Other chest pain Disease Active 07-09 00:00: 00 [facility] Essential hypertensi on, benign Essential hypertensi on, benign Disease Active 07-09 00:00: 00 [facility] HLD (hyperlipi demia) HLD (hyperlipi demia) Disease Active 07-09 00:00: 00 Overview: Formattin g of this note might be different from the original. ICD10 Diagnosis Term Log [employer] [facility] Chronic obstructiv e airway disease with asthma Chronic obstructiv e airway disease with asthma Disease Active 07-09 00:00: 00 Overview: Formattin g of this note might be different from the original. ICD10 Diagnosis Term Log [employer] [facility] Peripheral neuropathy Peripheral neuropathy Problem Common [facility] Chronic pancreatit is Chronic pancreatit is Problem [facility] Fatty liver Fatty liver Problem Common [facility] Insomnia Insomnia Problem Common [facility] Stented coronary artery Stented coronary artery Problem [facility] Gastroesop hageal reflux disease GERD (gastroeso phageal reflux disease) Problem Common [facility] Degenerati on of lumbosacra l interverte bral disc Degenerati on, interverte bral disc, lumbosacra l Problem [facility] 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 Atheroscle rosis of coronary artery of [place] heart Problem Common [facility] Degenerati ve joint disease Degenerati ve joint disease Problem Common [facility] Varicose veins Varicose veins Problem Common [facility] Hypertensi on Hypertensi on Problem Common [facility] Dizziness Dizziness Problem Comm on [facility] Postsurgic al menopause Postsurgic al menopause Problem [facility] [id number] History of transient ischemic attack Problem [facility] History of cerebrovas cular accident History of cerebrovas cular accident Problem [facility] [id number] Adrenal hypofuncti on Problem Common [facility] Megaloblas tic anemia due to vitamin B>12< deficiency Vitamin B12 deficiency anemia Problem [facility] Simple renal cyst Simple renal cyst Problem [facility] [id number] Stress disorder, acute Problem [facility] Solitary nodule of lung Lung nodule Problem [facility] Mixed anxiety and depressive disorder Depression with anxiety Problem [facility] [id number] Vitamin D deficiency Problem [facility] Obstructiv e sleep apnea Obstructiv e sleep apnea Problem [facility] Mixed hyperlipid emia Hyperlipid emia, mixed Problem [facility] [id number] Chronic obstructiv e pulmonary disease, unspecifie d COPD type Problem [facility] [id number] Hypothyroi dism, unspecifie d type Problem [facility] [id number] Other chronic pain Problem [facility] [id number] Kidney stones Problem Common [facility] [id number] Gross hematuria Problem [facility] [id number] Lower urinary tract symptoms (LUTS) Problem [facility] [id number] Urinary incontinen ce, unspecifie d type Problem [facility] Sinusitis Sinusitis Problem Comm on [facility] [id number] Suprapubic pain Problem [facility] [id number] Painful bladder spasm Problem [facility] [id number] Obesity (BMI 30-39.9) Problem Common [facility] [id number] Flank pain, acute Problem [facility] History of urinary stone History of renal calculi Problem Common [facility] Acid reflux Acid reflux Problem [facility] [id number] Moderate major depression , single episode Problem [facility] 59010135 Type 2 diabetes mellitus with hyperglyce tim, without long-term current use of insulin Problem [facility] Amnesia Memory changes Problem [facility] 95270350 Chronic fatigue Problem [facility] 94939324 Peripheral polyneurop athy Problem [facility] [id number] Recurrent major depressive disorder, in partial remission Problem [facility] [id number] ANY (generaliz ed anxiety disorder) Problem [facility] [id number] Slow gastric motility Problem [facility] Cervicalgi a Cervicalgi a Problem [facility] Overweight Overweight Problem Co mmon [facility] Pain co-occurre nt and due to varicose veins of bilateral legs Varicose veins of leg with pain, bilateral Problem [facility] [id number] Claustroph obia Problem [facility] Aphthous ulcer Aphthous ulcer Problem [facility] Allergies, Adverse Reactions, Alerts Allergy Name Allergy Type Status Severity Reaction(s) Onset Date Inactive Date Treating Clinician Comments Source RediTrex (PF) Propensi ty to adverse reaction to drug Active 8-07 00:00: 00 [facility]ider ne - Oral Propensi ty to adverse reaction to drug Active 15 00:00: 00 [facility] Reynaga Penicill ins DA Active MO 2016-06 00:00: 00 [facility] metoclop ramide DA Active MO 2016-06 00:00: 00 [facility] Penicill ins Propensi ty to adverse reaction to drug Active 0 6-21 00:00: 00 [facility] Reynaga METOCLOP RAMIDE HCL DRUG INGREDI Active Med Anxiety 0 7- 00:00: 00 [facility] Metoclop ramide Hcl Propensi ty to adverse reaction s Active Anxiety 0 7- 00:00: 00 [facility] PENICILL INS Drug Class Active Med Rash 0 4-15 00:00: 00 [facility] METHYLPH ENIDATE DRUG INGREDI Active Anxiety 0 4-15 00:00: 00 [facility] Penicill ins Propensi ty to adverse reaction s Active Rash 0 4-15 00:00: 00 [facility] Penicill ins Propensi ty to adverse reaction s Active Rash 0 4-15 00:00: 00 [facility] Penicill ins Propensi ty to adverse reaction s Active Rash 0 4-15 00:00: 00 [facility] Methylph enidate Propensi ty to adverse reaction s Active Anxiety 0 4-15 00:00: 00 [facility] metoclop ramide metoclop ramide Active anxiety [facility] [id number] 85 Drug allergy Active Rash [facility] methylph enidate methylph enidate Active Anxious [facility] Social History Social Habit Start Date Stop Date Quantity Comments Source Sex Assigned At [facility] Gender identity [facility] Sexual orientation [facility] History of tobacco use Cigarette Smoker [facility] Alcoholic beverage intake 2024-03-03 00:00:00 2024-03-03 00:00:00 0 /d [facility] History of Social function 2023-10-20 00:00:00 2023-10-20 00:00:00 [facility] Alcohol intake 2023-10-13 00:00:00 2023-10-13 00:00:00 0 /d [facility] Tobacco Comment 2022-12-20 00:00:00 2022-12-20 00:00:[address]uit [address] [facility] Cigarette pack-years 2022-12-20 00:00:00 2022-12-20 00:00:00 [facility] Tobacco use and exposure 2022-12-20 00:00:00 2022-12-20 00:00:00 Smokeless tobacco non-user [facility] Exposure to SARS-CoV-2 (event) 2022-10-12 00:00:00 2022-10-22 10:34:[address] [facility] Education 2019-09-10 00:00:00 2019-09-10 00:00:[address] [facility] History SDOH Financial 2019-09-10 00:00:00 2019-09-10 00:00:[address] [facility] History SDOH Food Worry 2019-09-10 00:00:00 2019-09-10 00:00:[address] [facility] History SDOH Food Scarcity 2019-09-10 00:00:00 2019-09-10 00:00:[address] [facility] History SDOH Transport Med 2019-09-10 00:00:00 2019-09-10 00:00:[address] [facility] History SDOH Transport Non-Med 2019-09-10 00:00:00 2019-09-10 00:00:[address] [facility] Smoking Status Start Date Stop Date Source Unknown if ever smoked Commo n [facility] Ex-smoker 2022-12-20 00:00:00 2022-12-20 [facility] Current Smoker 2022-07-01 00:00:00 Common [facility] Never Smoker [facility] Medications Ordered Medication Name Filled Medication Name Start Date Stop Date Current Medication? Ordering Clinician Indication Dosage Frequency Signature (SIG) Comments Components Source Ozempic (0.25 or 0.5 MG/DOSE) 2 MG/3ML Ozempic (0.25 or 0.5 MG/DOSE) 2 MG/3ML 2023-06 00:00: 00 No Ozempic (0.25 or 0.5 MG/DOSE) 2 MG/3ML Miconazole Antifungal 2 % Miconazole Antifungal 2 % 2023-06 00:00: 00 No 1{appli cation} BID Miconazole Antifungal 2 % Ondansetron HCl 4 MG Ondansetron HCl 4 MG 2023-06 00:00: 00 No 1{table t} QD Ondansetro n HCl 4 MG Fluconazole 150 MG Fluconazole 150 MG 2023-06 00:00: 00 No 1{table t} QD Fluconazol e 150 MG Ketoconazol e 2 % Ketoconazol e 2 % 2023-06 00:00: 00 No Ketoconazo le 2 % triamcinolo ne acetonide 0.1 % topical ointment 2023-06 00:00: 00 Yes 1% [facility] atenolol 100 mg tablet 2023-06 00:00: 00 Yes 1mg [facility] Plavix 75 mg tablet 2023-06 00:00: 00 Yes 1mg [facility] mupirocin 2 % topical ointment 2023-06 00:00: 00 Yes 1% [facility] Reynaga clindamycin HCl 150 mg capsule 2023-06 00:00: 00 Yes 1mg [facility] Ciprofloxac in HCl 500 MG Ciprofloxac in HCl 500 MG 2023-06 1 00:00: 00 No 1{table t} BID Ciprofloxa keshia HCl 500 MG Ozempic (1 MG/DOSE) 4 MG/3ML Ozempic (1 MG/DOSE) 4 MG/3ML 2023-06 010 00:00: 00 No Ozempic (1 MG/DOSE) 4 MG/3ML ALPRAZolam 0.5 MG ALPRAZolam 0.5 MG 2023-06 010 00:00: 00 No 1{table t} QD ALPRAZolam 0.5 MG triamcinolo ne acetonide (KENALOG) injection 03-08 13:02: 00 03-08 16:09 :48 No PRN, Starting on Fri03/08/24 at 0802, Until Fri03/08/24 at 1109, Routine, Intra-op [facility] iohexoL (OMNIPAQUE 300-50 mL)) injection 03-08 13:02: 00 03-08 16:09 :48 No PRN, Starting on Fri03/08/24 at 0802, Until Fri03/08/24 at 1109, Routine, [facility]op [facility] bupivacaine (preserv free) (SENSORCAIN E MPF) 0.25 % (2.5 mg/mL) injection 03-08 13:02: 00 03-08 16:09 :48 No PRN, Starting on Fri03/08/24 at 0802, Until Fri03/08/24 at 1109, Routine, Intra-op [facility] lidocaine 1% (XYLOCAINE) 10 mg/mL (1 %) injection 03-08 13:01: 00 03-08 16:09 :48 No PRN, Starting on Fri03/08/24 at 0801, Until Fri03/08/24 at 1109, Routine, Intra-op [facility] lactated ringers IV infusion 1,000 mL 03-08 12:30: 00 03-08 12:34 :00 No 1000mL at 42 mL/hr, 1,000 mL, IV Infusion, ONCE, 1 dose, On Fri03/08/24 at 0730, Routine, DSU Pre-op [facility] semaglutide (OZEMPIC) 0.25 mg or 0.5 mg(2 mg/1.5 mL) PnIj 03-08 09:04: 40 Yes inject under the skin weekly. [facility] Rosuvastati n Calcium 40 MG Rosuvastati n Calcium 40 MG 03-05 00:00: 00 No 2{puffs _as_nee ded} QID Rosuvastat in Calcium 40 MG Vitamin D3 75 MCG (3000 UT) Vitamin D3 75 MCG (3000 UT) 03-04 00:00: 00 No 1{table t} QD Vitamin D3 75 MCG (3000 UT) triamcinolo ne acetonide (KENALOG) injection 02-08 13:01: 00 02-08 17:26 :59 No PRN, Starting on Fri02/09/24 at 0801, Until Fri02/09/24 at 1226, Routine, Intra-op [facility] iohexoL (OMNIPAQUE 300-50 mL)) injection 02-08 13:00: 00 02-08 17:26 :59 No PRN, Starting on Fri02/09/24 at 0800, Until Fri02/09/24 at 1226, Routine, Intra-op [facility] lidocaine 1% (XYLOCAINE) 10 mg/mL (1 %) injection 02-08 12:59: 00 02-08 17:26 :59 No PRN, Starting on Fri02/09/24 at 0759, Until Fri02/09/24 at 1226, Routine, Intra-op [facility] bupivacaine (preserv free) (SENSORCAIN E MPF) 0.25 % (2.5 mg/mL) injection 02-08 12:59: 00 02-08 17:26 :59 No PRN, Starting on Fri02/09/24 at 0759, Until Fri02/09/24 at 1226, Routine, Intra-op [facility] lactated ringers IV infusion 1,000 mL 02-08 12:30: 00 02-08 12:35 :00 No 1000mL at 42 mL/hr, 1,000 mL, IV Infusion, ONCE, 1 dose, On Fri02/09/24 at 0730, Routine, DSU Pre-op [facility] buPROPion HCl ER (XL) 150 MG buPROPion HCl ER (XL) 150 MG 02-04 00:00: 00 No 1{table t_in_th e_morni ng} QD buPROPion HCl ER (XL) 150 MG Bromfed DM 2 mg-30 mg-10 mg/5 mL oral syrup 01-27 00:00: 00 Yes 10mg/5 mL [facility] Reynaga esomeprazol e 40 mg capsule 12-10 08:43: 31 Yes 40mg Take 1 capsule by mouth in the morning. [facility] mometasone (NASONEX) 50 mcg/actuati on nasal spray 12-10 08:43: 31 Yes 1{spray } Use 1 [place] in each nostril. [facility] clopidogreL (PLAVIX) 75 mg tablet 12-10 08:43: 31 Yes 75mg Take 1 tablet by mouth in the morning. [facility] scopolamine transdermal 1 mg over 3 days patch 12-10 08:43: 31 Yes 1.5mg Apply 1 Patch to area(s) every 72 (seventy-t wo) hours. Pt uses as needed [facility] venlafaxine XR 150 mg 24 hr capsule 12-10 08:43: 31 Yes 150mg Take 1 capsule by mouth in the morning. [facility] KCL 10 mEq tablet 12-10 08:43: 31 Yes 10meq Take 1 tablet by mouth in the morning. [facility] budesonide- formoteroL 160-4.5 mcg/actuati on inhaler 12-10 08:39: 36 Yes 2{puff} Inhale 2 Puffs in the morning and 2 Puffs in the evening. [facility] nitroglycer in (NITROSTAT) 0.4 mg sublingual tablet 12-10 08:39: [address] 1 tablet under the tongue every 5 (five) minutes as needed for Chest pain. [facility] ergocalcife rol, vitamin D2, (VITAMIN D ORAL) 12-10 08:39: 36 Yes Take by mouth. [facility] ketoconazol e 2 % cream 12-10 08:39: 36 Yes 1g Apply 1 g to area(s) in the morning and 1 g in the evening. [facility] triamcinolo ne acetonide (KENALOG) injection 11-30 13:57: 00 11-30 16:01 :56 No PRN, Starting on Fri12/01/23 at 0857, Until Fri12/01/23 at 1101, Routine, Intra-op [facility] lactated ringers IV infusion 1,000 mL 11-30 13:30: 00 11-30 16:01 :56 No 1000mL at 75 mL/hr, 1,000 mL, IV Infusion, CONTINUOUS , Starting on Fri12/01/23 at 0830, Until Fri12/01/23 at 1101, Routine, PACU [facility] FENTanyl PF (SUBLIMAZE (PF)) injection 25 mcg 11-30 13:16: 45 11-30 16:01 :56 No 25ug 25 mcg, Slow IV Push, Q5MIN PRN, 4 doses, Starting on Fri12/01/23 at 0816, Until Fri12/01/23 at 1101, Routine, Pain (scale 7-10), PACU [facility] ondansetron (ZOFRAN (PF)) injection 4 mg 11-30 13:16: 45 11-30 16:01 :56 No 4mg 4 mg, Slow IV Push, PRN, 1 dose, Starting on Fri12/01/23 at 0816, Until Fri12/01/23 at 1101, Routine, Nausea and Vomiting (N/V), PACU [facility] lidocaine 1% (XYLOCAINE) 10 mg/mL (1 %) injection 11-30 12:58: 00 11-30 16:01 :56 No PRN, Starting on Fri12/01/23 at 0758, Until Fri12/01/23 at 1101, Routine, Intra-op [facility] iohexoL (OMNIPAQUE 300-50 mL)) injection 11-30 12:57: 00 11-30 13:16 :10 No PRN, Starting on Fri12/01/23 at 0757, Until Fri12/01/23 at 0816, Routine, Intra-op [facility] bupivacaine (preserv free) (SENSORCAIN E MPF) 0.25 % (2.5 mg/mL) injection 11-30 12:56: 00 11-30 13:16 :10 No PRN, Starting on Fri12/01/23 at 0756, Until Fri12/01/23 at 0816, Routine, Intra-op [facility] lactated ringers IV infusion 1,000 mL 11-30 12:15: 00 11-30 12:30 :00 No 1000mL at 42 mL/hr, 1,000 mL, IV Infusion, ONCE, 1 dose, On Fri12/01/23 at 0715, Routine, DSU Pre-op [facility] esomeprazol e 40 mg capsule 11-30 09:01: 55 Yes 40mg Take 1 capsule by mouth in the morning. [facility] budesonide- formoteroL 160-4.5 mcg/actuati on inhaler 11-30 09:01: 55 Yes 2{puff} Inhale 2 Puffs in the morning and 2 Puffs in the evening. [facility] nitroglycer in (NITROSTAT) 0.4 mg sublingual tablet 11-30 09:01: [address] 1 tablet under the tongue every 5 (five) minutes as needed for Chest pain. [facility] mometasone (NASONEX) 50 mcg/actuati on nasal spray 11-30 09:01: 55 Yes 1{spray } Use 1 [place] in each nostril. [facility] clopidogreL (PLAVIX) 75 mg tablet 11-30 09:01: 55 Yes 75mg Take 1 tablet by mouth in the morning. [facility] ergocalcife rol, vitamin D2, (VITAMIN D ORAL) 11-30 09:01: 55 Yes Take by mouth. [facility] scopolamine transdermal 1 mg over 3 days patch 11-30 09:01: 55 Yes 1.5mg Apply 1 Patch to area(s) every 72 (seventy-t wo) hours. Pt uses as needed [facility] venlafaxine XR 150 mg 24 hr capsule 11-30 09:01: 55 Yes 150mg Take 1 capsule by mouth in the morning. [facility] ketoconazol e 2 % cream 11-30 09:01: 55 Yes 1g Apply 1 g to area(s) in the morning and 1 g in the evening. [facility] KCL 10 mEq tablet 11-30 09:01: 55 Yes 10meq Take 1 tablet by mouth in the morning. [facility] Cyanocobala min Cyanocobala min 11-24 00:00: 00 No 1000ug [facility] lidocaine 1% (XYLOCAINE) 10 mg/mL (1 %) injection 10-19 14:26: 00 10-19 16:54 :50 No PRN, Starting on Fri10/20/23 at 0926, Until Fri10/20/23 at 1154, Routine, Intra-op [facility] lactated ringers IV infusion 1,000 mL 10-19 14:15: 00 10-19 16:54 :50 No 1000mL at 100 mL/hr, 1,000 mL, IV Infusion, CONTINUOUS , Starting on Fri10/20/23 at 0915, Until Fri10/20/23 at 1154, Routine, PACU [facility] ondansetron (ZOFRAN (PF)) injection 4 mg 10-19 14:06: 36 10-19 16:54 :50 No 4mg 4 mg, Slow IV Push, PRN, 1 dose, Starting on Fri10/20/23 at 0906, Until Fri10/20/23 at 1154, Routine, Nausea and Vomiting (N/V), PACU [facility] triamcinolo ne acetonide (KENALOG) injection 10-19 13:57: 00 10-19 16:54 :50 No PRN, Starting on Fri10/20/23 at 0857, Until Fri10/20/23 at 1154, Routine, Intra-op [facility] iohexoL (OMNIPAQUE 300-50 mL)) injection 10-19 13:57: 00 10-19 16:54 :50 No PRN, Starting on Fri10/20/23 at 0857, Until Fri10/20/23 at 1154, Routine, Intra-op [facility] bupivacaine (preserv free) (SENSORCAIN E MPF) 0.25 % (2.5 mg/mL) injection 10-19 13:57: 00 10-19 16:54 :50 No PRN, Starting on Fri10/20/23 at 0857, Until Fri10/20/23 at 1154, Routine, Intra-op [facility] esomeprazol e 40 mg capsule 10-19 09:54: 43 Yes 40mg Take 1 capsule by mouth in the morning. [facility] budesonide- formoteroL 160-4.5 mcg/actuati on inhaler 10-19 09:54: 43 Yes 2{puff} Inhale 2 Puffs in the morning and 2 Puffs in the evening. [facility] nitroglycer in (NITROSTAT) 0.4 mg sublingual tablet 10-19 09:54: [address] 1 tablet under the tongue every 5 (five) minutes as needed for Chest pain. [facility] mometasone (NASONEX) 50 mcg/actuati on nasal spray 10-19 09:54: 43 Yes 1{spray } Use 1 [place] in each nostril. [facility] clopidogreL (PLAVIX) 75 mg tablet 10-19 09:54: 43 Yes 75mg Take 1 tablet by mouth in the morning. [facility] ergocalcife rol, vitamin D2, (VITAMIN D ORAL) 10-19 09:54: 43 Yes Take by mouth. [facility] scopolamine transdermal 1 mg over 3 days patch 10-19 09:54: 43 Yes 1.5mg Apply 1 Patch to area(s) every 72 (seventy-t wo) hours. Pt uses as needed [facility] venlafaxine XR 150 mg 24 hr capsule 10-19 09:54: 43 Yes 150mg Take 1 capsule by mouth in the morning. [facility] ketoconazol e 2 % cream 10-19 09:54: 43 Yes 1g Apply 1 g to area(s) in the morning and 1 g in the evening. [facility] KCL 10 mEq tablet 10-19 09:54: 43 Yes 10meq Take 1 tablet by mouth in the morning. [facility] scopolamine 1 mg over 3 days transdermal [...] 0735, Until Fri09/22/23 at 1110, Routine, Intra-op [facility] bupivacaine (preserv free) (SENSORCAIN E MPF) 0.25 % (2.5 mg/mL) injection 09-21 12:35: 00 09-21 16:10 :13 No PRN, Starting on Fri09/22/23 at 0735, Until Fri09/22/23 at 1110, Routine, [facility] iohexoL (OMNIPAQUE 300-50 mL)) injection 09-21 12:35: 00 09-21 16:10 :13 No PRN, Starting on Fri09/22/23 at 0735, Until Fri09/22/23 at 1110, Routine, [facility] lidocaine 1% (XYLOCAINE) 10 mg/mL (1 %) injection 09-21 12:33: 00 09-21 16:10 :13 No PRN, Starting on Fri09/22/23 at 0733, Until Fri09/22/23 at 1110, Routine, Intra-op [facility] lactated ringers IV infusion 1,000 mL 09-21 11:45: 00 09-21 11:50 :00 No 1000mL at 42 mL/hr, 1,000 mL, IV Infusion, ONCE, 1 dose, On Fri09/22/23 at 0645, Routine, DSU Pre-op [facility] esomeprazol e 40 mg capsule 09-21 09:05: 13 Yes 40mg Take 1 capsule by mouth in the morning. [facility] budesonide- formoteroL 160-4.5 mcg/actuati on inhaler 09-21 09:05: 13 Yes 2{puff} Inhale 2 Puffs in the morning and 2 Puffs in the evening. [facility] nitroglycer in (NITROSTAT) 0.4 mg sublingual tablet 09-21 09:05: [address] 1 tablet under the tongue every 5 (five) minutes as needed for Chest pain. [facility] mometasone (NASONEX) 50 mcg/actuati on nasal spray 09-21 09:05: 13 Yes 1{spray } Use 1 [place] in each nostril. [facility] clopidogreL (PLAVIX) 75 mg tablet 09-21 09:05: 13 Yes 75mg Take 1 tablet by mouth in the morning. [facility] ergocalcife rol, vitamin D2, (VITAMIN D ORAL) 09-21 09:05: 13 Yes Take by mouth. [facility] scopolamine transdermal 1 mg over 3 days patch 09-21 09:05: 13 Yes 1.5mg Apply 1 Patch to area(s) every 72 (seventy-t wo) hours. Pt uses as needed [facility] venlafaxine XR 150 mg 24 hr capsule 09-21 09:05: 13 Yes 150mg Take 1 capsule by mouth in the morning. [facility] ketoconazol e 2 % cream 09-21 09:05: 13 Yes 1g Apply 1 g to area(s) in the morning and 1 g in the evening. [facility] KCL 10 mEq tablet 09-21 09:05: 13 Yes 10meq Take 1 tablet by mouth in the morning. [facility] VENLAFAXINE 150MG ER 3-28 00:00: 00 Yes [...] TAKE 1 TABLET BY MOUTH EVERY DAY 0 2-06 00:00: 00 Yes Rock Reynaga SPIRONOLACT 25MG 0 2-01 00:00: 00 Yes Rock Reynaga INHALE 2 PUFFS TWICE A DAY 07-22 00:00: 00 Yes Rock Reynaga lactated ringers IV infusion 1,000 mL 07-21 14:15: 00 Yes 1000mL at 100 mL/hr, 1,000 mL, IV Infusion, CONTINUOUS , Starting on Fri07/21/23 at 0815, Until Discontinu ed, Routine, PACU [facility] ondansetron (ZOFRAN (PF)) injection 4 mg 07-21 14:10: 53 Yes 4mg 4 mg, Slow IV Push, PRN, 1 dose, Starting on Fri07/21/23 at 0810, Until Discontinu ed, Routine, Nausea and Vomiting (N/V), PACU [facility] triamcinolo ne acetonide (KENALOG) injection 07-21 13:53: 00 07-21 17:00 :08 No PRN, Starting on Fri07/21/23 at 0753, Until Fri07/21/23 at 1100, Routine, Intra-op [facility] NaCl 23.4% HYPERTONIC injection 07-21 13:53: 00 07-21 17:00 :09 No PRN, Starting on Fri07/21/23 at 0753, Until Fri07/21/23 at 1100, STAT, Intra-op [facility] iohexoL (OMNIPAQUE 300-50 mL)) injection 07-21 13:51: 00 07-21 17:00 :09 No PRN, Starting on Fri07/21/23 at 0751, Until Fri07/21/23 at 1100, Routine, Intra-op [facility] bupivacaine (preserv free) (SENSORCAIN E MPF) 0.25 % (2.5 mg/mL) injection 07-21 13:50: 00 07-21 17:00 :09 No PRN, Starting on Fri07/21/23 at 0750, Until Fri07/21/23 at 1100, Routine, Intra-op [facility] lactated ringers IV infusion 1,000 mL 07-21 13:30: 00 07-21 13:39 :00 No 1000mL at 42 mL/hr, 1,000 mL, IV Infusion, ONCE, 1 dose, On Fri07/21/23 at 0730, Routine, DSU Pre-op [facility] esomeprazol e 40 mg capsule 07-21 08:55: 02 Yes 40mg Take 1 capsule by mouth in the morning. [facility] budesonide- formoteroL 160-4.5 mcg/actuati on inhaler 07-21 08:55: 02 Yes 2{puff} Inhale 2 Puffs in the morning and 2 Puffs in the evening. [facility] nitroglycer in (NITROSTAT) 0.4 mg sublingual tablet 07-21 08:55: [address] 1 tablet under the tongue every 5 (five) minutes as needed for Chest pain. [facility] mometasone (NASONEX) 50 mcg/actuati on nasal spray 07-21 08:55: 02 Yes 1{spray } Use 1 [place] in each nostril. [facility] clopidogreL (PLAVIX) 75 mg tablet 07-21 08:55: 02 Yes 75mg Take 1 tablet by mouth in the morning. [facility] ergocalcife rol, vitamin D2, (VITAMIN D ORAL) 07-21 08:55: 02 Yes Take by mouth. [facility] scopolamine transdermal 1 mg over 3 days patch 07-21 08:55: 02 Yes 1.5mg Apply 1 Patch to area(s) every 72 (seventy-t wo) hours. Pt uses as needed [facility] venlafaxine XR 150 mg 24 hr capsule 07-21 08:55: 02 Yes 150mg Take 1 capsule by mouth in the morning. [facility] ketoconazol e 2 % cream 07-21 08:55: 02 Yes 1g Apply 1 g to area(s) in the morning and 1 g in the evening. [facility] KCL 10 mEq tablet 07-21 08:55: 02 Yes 10meq Take 1 tablet by mouth in the morning. [facility] LINZESS 145MCG 07-16 00:00: 00 Yes Rock Reynaga 1 TABLET BY MOUTH WITH MEAL ORALLY TWICE A DAY 30 90 DAYS 07-16 00:00: 00 Yes Rock Reynaga ALBUTER 3ML 0.083% - 00:00: 00 Yes Rock Reynaga TAKE 1 TABLET BY MOUTH EVERY DAY IN THE EVENING FOR 90 DAYS 07-07 00:00: 00 Yes Rock Reynaga LEVOTHYROXI N 25MCG - 00:00: 00 Yes [id number] Rock Reynaga INHALE 1-2 PUFFS EVERY 4 TO 6 HOURS NEEDED FOR WHEEZING. 06-28 00:00: 00 Yes [id number] Rock Reynaga TAKE 1 TABLET TWICE DAILY WITH FOOD. 06-28 00:00: 00 10-21 00:00 :00 No [id number] Rock Reynaga TAKE 2 TABLETS X 1 TODAY. THEN 1 TABLET DAILY X 5 DAYS 06-28 00:00: 00 10-21 00:00 :00 No 20 Rock Reynaga PANTOPRAZOL E 40MG DR 06-27 00:00: 00 Yes Rock Reynaga LOSARTAN 100MG 06-25 00:00: 00 Yes Rock Reynaga FUROSEMIDE 40MG 06-25 00:00: 00 Yes Rock Reynaga metformin ER 500 mg 24 hr tablet 06-24 00:00: 00 Yes 500mg Take 1 tablet by mouth daily with breakfast. [facility] HYDROCORTIS O 2.5% CRE 2022-06 00:00: 00 Yes Rock Reynaga TAKE 1 TABLET BY MOUTH EVERY DAY 2022-06- 00:00: 00 Yes Rock Reynaga LEVOTHYROXI N 25MCG 2022-06- 00:00: 00 Yes Rock Reynaga TAKE 1 TABLET BY MOUTH EVERY DAY 2022-06 00:00: 00 Yes Rock Reynaga ATENOLOL 100MG 2022-06 2- 00:00: 00 Yes Rock Reynaga 1 TABLET [...] BY MOUTH EVERY DAY FOR 30 DAYS 2022-06 00:00: 00 Yes Rock Reynaga METFORMIN ER 500MG GP 2022-06 00:00: 00 Yes Rock Reynaga TAKE 1 TABLET BY MOUTH EVERY DAY 2022-06 00:00: 00 Yes Rock Reynaga SPIRONOLACT 25MG 2022-06 00:00: 00 Yes Rock Reynaga ALBUTER 3ML 0.083% 2022-06 0 00:00: 00 Yes Rock Reynaga FUROSEMIDE 40MG 2022-06 0- 00:00: 00 Yes Rock Reynaga PANTOPRAZOL E 40MG DR 2022-06 0-06 00:00: 00 Yes 40 Rock Reynaga LOSARTAN 100MG 2022-06 006 00:00: 00 Yes [id number] Rock Reynaga TAKE 1 CAPSULE BY MOUTH EVERY 12 HOURS FOR 7 DAYS 2022-06 0-04 00:00: 00 Yes Rock Reynaga HYDROCO/APA P 5-325MG 03-11 00:00: 00 Yes Rock Reynaga OXYBUTYNIN 5MG ER 03-07 00:00: 00 Yes 5000 Rock Reynaga esomeprazol e 40 mg capsule 02-21 13:01: 19 Yes 40mg Take 1 capsule by mouth in the morning. [facility] budesonide- formoteroL 160-4.5 mcg/actuati on inhaler 02-21 13:01: 19 Yes 2{puff} Inhale 2 Puffs in the morning and 2 Puffs in the evening. [facility] nitroglycer in (NITROSTAT) 0.4 mg sublingual tablet 02-21 13:01: [address] 1 tablet under the tongue every 5 (five) minutes as needed for Chest pain. [facility] mometasone (NASONEX) 50 mcg/actuati on nasal spray 02-21 13:01: 19 Yes 1{spray } Use 1 [place] in each nostril. [facility] clopidogreL (PLAVIX) 75 mg tablet 02-21 13:01: 19 Yes 75mg Take 1 tablet by mouth in the morning. [facility] scopolamine transdermal 1 mg over 3 days patch 02-21 13:01: 19 Yes 1.5mg Apply 1 Patch to area(s) every 72 (seventy-t wo) hours. Pt uses as needed [facility] venlafaxine XR 150 mg 24 hr capsule 02-21 13:01: 19 Yes 150mg Take 1 capsule by mouth in the morning. [facility] estradioL 0.01 % (0.1 mg/gram) vaginal cream 02-21 00:00: 00 Yes [id number] 1g Insert 1 g into vagina every 72 (seventy-t wo) hours. [facility] ESTRADIOLVA G 0.01% CRE 02-21 00:00: 00 Yes Rock Reynaga TAKE 1 TABLET BY MOUTH EVERY DAY 01-28 00:00: 00 Yes Rock Reynaga metFORMIN HCl ER 500 MG metFORMIN HCl ER 500 MG 01-27 00:00: 00 No QD metFORMIN HCl ER 500 MG 1 TAB WITH MEAL ORALLY TWICE A DAY 90 DAYS 01-27 00:00: 00 Yes Rock Reynaga CLOPIDOGREL 75MG 01-27 00:00: 00 Yes Rock Reynaga ROSUVASTATI N 20MG 01-27 00:00: 00 Yes Rock Reynaga SPIRONOLACT 25MG 01-27 00:00: 00 Yes [id number] Rock Reynaga DICYCLOMINE 20MG 8- 00:00: 00 Yes Rock Reynaga TAKE 1 TABLET BY MOUTH EVERY DAY IN THE MORNING ON AN EMPTY STOMACH FOR 30 DAYS - 00:00: 00 Yes Rock Reynaga DICYCLOMINE 20MG 202301-09 00:00: 00 Yes Rock Reynaga budesonide- formoteroL 160-4.5 mcg/actuati on inhaler 01-03 11:15: 50 Yes 2{puff} Inhale 2 Puffs in the morning and 2 Puffs in the evening. [facility] nitroglycer in (NITROSTAT) 0.4 mg sublingual tablet 01-03 11:15: [address] 1 tablet under the tongue every 5 (five) minutes as needed for Chest pain. [facility] mometasone (NASONEX) 50 mcg/actuati on nasal spray 01-03 11:15: 50 Yes 1{spray } Use 1 [place] in each nostril. [facility] clopidogreL (PLAVIX) 75 mg tablet 01-03 11:15: 50 Yes 75mg Take 1 tablet by mouth in the morning. [facility] ergocalcife rol, vitamin D2, (VITAMIN D ORAL) 01-03 11:15: 50 Yes Take by mouth. [facility] scopolamine transdermal 1 mg over 3 days patch 01-03 11:15: 50 Yes 1.5mg Apply 1 Patch to area(s) every 72 (seventy-t wo) hours. Pt uses as needed [facility] venlafaxine XR 150 mg 24 hr capsule 01-03 11:15: 50 Yes 150mg Take 1 capsule by mouth in the morning. [facility] esomeprazol e 40 mg capsule 01-03 11:15: 49 Yes 40mg Take 1 capsule by mouth in the morning. [facility] TAKE 1 TABLET BY MOUTH EVERY DAY 12-31 00:00: 00 Yes Rock Reynaga triamcinolo ne acetonide (KENALOG) injection 12-30 14:35: 00 Yes PRN, Starting on Fri12/30/22 at 0935, Until Discontinu ed, Routine, Intra-op [facility] iohexoL (OMNIPAQUE 300-50 mL)) injection 12-30 14:34: 00 Yes PRN, Starting on Fri12/30/22 at 0934, Until Discontinu ed, Routine, Intra-op [facility] lidocaine 1% (XYLOCAINE) 10 mg/mL (1 %) injection 12-30 14:33: 00 Yes PRN, Starting on Fri12/30/22 at 0933, Until Discontinu ed, Routine, Intra-op [facility] bupivacaine (preserv free) (SENSORCAIN E MPF) 0.25 % (2.5 mg/mL) injection 12-30 14:33: 00 Yes PRN, Starting on Fri12/30/22 at 0933, Until Discontinu ed, Routine, Intra-op [facility] lactated ringers IV infusion 1,000 mL 12-30 14:00: 00 12-30 14:15 :00 No 1000mL at 42 mL/hr, 1,000 mL, IV Infusion, ONCE, 1 dose, On Fri12/30/22 at 0900, Routine, DSU Pre-op [facility] clopidogreL (PLAVIX) 75 mg tablet 12-30 09:00: 19 Yes 75mg Take 1 tablet by mouth in the morning. [facility] esomeprazol e 40 mg capsule 12-30 08:58: 06 Yes 40mg Take 1 capsule by mouth in the morning. [facility] budesonide- formoteroL 160-4.5 mcg/actuati on inhaler 12-30 08:58: 06 Yes 2{puff} Inhale 2 Puffs in the morning and 2 Puffs in the evening. [facility] nitroglycer in (NITROSTAT) 0.4 mg sublingual tablet 12-30 08:58: [address] 1 tablet under the tongue every 5 (five) minutes as needed for Chest pain. [facility] mometasone (NASONEX) 50 mcg/actuati on nasal spray 12-30 08:58: 06 Yes 1{spray } Use 1 [place] in each nostril. [facility] ergocalcife rol, vitamin D2, (VITAMIN D ORAL) 12-30 08:58: 06 Yes Take by mouth. [facility] scopolamine transdermal 1 mg over 3 days patch 12-30 08:58: 06 Yes 1.5mg Apply 1 Patch to area(s) every 72 (seventy-t wo) hours. Pt uses as needed [facility] venlafaxine XR 150 mg 24 hr capsule 12-30 08:58: 06 Yes 150mg Take 1 capsule by mouth in the morning. [facility] LINZESS 145MCG 12-24 00:00: 00 Yes Rock Reynaga VENLAFAXINE 150MG ER 12-24 00:00: 00 Yes Rock Reynaga FUROSEMIDE 40MG 12-21 00:00: 00 Yes Rock Reynaga PANTOPRAZOL E 40MG DR 12-21 00:00: 00 Yes [id number] Rock Reynaga ALBUTER 3ML 0.083% 12-17 00:00: 00 Yes Rock Reynaga CREON [id number] 12-16 00:00: 00 Yes Rock Reynaga SIMVASTATIN 40MG 12-11 00:00: 00 Yes [id number] Rock Reynaga CHLORHEX GLU 0.12% FELIX 12-10 [...] 00 Yes Rock Reynaga PROAIR RESPI INH -29 00:00: 00 Yes Rock Reynaga TAKE 1 CAPSULE BY MOUTH BEFORE MEAL 11-14 00:00: 00 Yes Rock Reynaga HYDROCORTIS O 2.5%RECT CRE 11-14 00:00: 00 Yes Rock Reynaga TAKE 1 TABLET BY MOUTH EVERY DAY 11-11 00:00: 00 Yes Rock Reynaga triamcinolo ne acetonide (KENALOG) injection 10-28 13:40: 00 Yes PRN, Starting on Fri10/28/22 at 0840, Until Discontinu ed, Routine, [facility]op [facility] iohexoL (OMNIPAQUE 300-50 mL)) injection 10-28 13:22: 00 Yes PRN, Starting on Fri10/28/22 at 0822, Until Discontinu ed, Routine, Intra[facility]op [facility] bupivacaine (preserv free) (SENSORCAIN E MPF) 0.25 % (2.5 mg/mL) injection 10-28 13:22: 00 Yes PRN, Starting on Fri10/28/22 at 0822, Until Discontinu ed, Routine, Intra[facility]op [facility] lidocaine 1% (XYLOCAINE) 10 mg/mL (1 %) injection 10-28 13:21: 00 Yes PRN, Starting on Fri10/28/22 at 0821, Until Discontinu ed, Routine, Intra[facility]op [facility] lactated ringers IV infusion 1,000 mL 10-28 12:30: 00 10-28 12:25 :00 No 1000mL at 42 mL/hr, 1,000 mL, IV Infusion, ONCE, 1 dose, On Fri10/28/22 at 0730, Routine, DSU Pre-op [facility] esomeprazol e 40 mg capsule 10-28 09:54: 30 Yes 40mg Take 1 capsule by mouth in the morning. [facility] budesonide- formoteroL 160-4.5 mcg/actuati on inhaler 10-28 09:54: 30 Yes 2{puff} Inhale 2 Puffs in the morning and 2 Puffs in the evening. [facility] nitroglycer in (NITROSTAT) 0.4 mg sublingual tablet 10-28 09:54: [address] 1 tablet under the tongue every 5 (five) minutes as needed for Chest pain. [facility] mometasone (NASONEX) 50 mcg/actuati on nasal spray 10-28 09:54: 30 Yes 1{spray } Use 1 [place] in each nostril. [facility] clopidogreL (PLAVIX) 75 mg tablet 10-28 09:54: 30 Yes 75mg Take 1 tablet by mouth in the morning. [facility] ergocalcife rol, vitamin D2, (VITAMIN D ORAL) 10-28 09:54: 30 Yes Take by mouth. [facility] scopolamine transdermal 1 mg over 3 days patch 10-28 09:54: 30 Yes 1.5mg Apply 1 Patch to area(s) every 72 (seventy-t wo) hours. Pt uses as needed [facility] venlafaxine XR 150 mg 24 hr capsule 10-28 09:54: 30 Yes 150mg Take 1 capsule by mouth in the morning. [facility] TAKE 1 TABLET BY MOUTH EVERY DAY [...] Reynaga SPIRONOLACT 25MG 10-27 00:00: 00 Yes [id number] Rock Reynaga TAKE 1 TABLET BY MOUTH EVERY DAY 10-25 00:00: 00 Yes Rock Reynaga ROSUVASTATI N 20MG 10-22 00:00: 00 Yes Rock Reynaga TAKE 1 TABLET BY MOUTH EVERY 12 HOURS FOR 3 DAYS 2022-0 4-21 00:00: 00 Yes Rock Reynaga IBUPROFEN 600MG 2022-0 4-21 00:00: 00 Yes Rock Reynaga TAKE 1 CAPSULE BY MOUTH EVERY DAY FOR 14 DAYS 2022-0 4-21 00:00: 00 Yes Rock Reynaga TAKE 1 CAPSULE EVERY 12 HOURS FOR 5 DAYS 2022-0 4-21 00:00: 00 Yes Rock Reynaga 1 TABLET(S) EVERY 12 HOURS NEEDED ORAL 2022-0 4-18 00:00: 00 Yes Rock Reynaga LOSARTAN 100MG 2022-0 4-18 00:00: 00 Yes Rock Reynaga TAKE 1 TABLET BY MOUTH EVERY DAY 2022-0 4-18 00:00: 00 Yes Rock Reynaga PROAIR RESPI INH 2022-0 4-18 00:00: 00 Yes [id number] Rock Reynaga LEVOTHYROXI N 25MCG 2022-0 4-18 00:00: 00 Yes [id number] Rock Reynaga TAKE 1 TABLET BY MOUTH EVERY DAY 2022-0 4-18 00:00: 00 Yes Rock Reynaga TAKE 1 CAPSULE BY MOUTH TWICE A DAY NEEDED 2022-0 4-14 00:00: 00 Yes Rock Reynaga VENLAFAXINE 150MG ER 2022-0 4-14 00:00: 00 Yes [id number] Rock Reynaga LINZESS 145MCG 2022-0 4-14 00:00: 00 Yes [id number] Rock Reynaga ATENOLOL 100MG 2022-0 4-13 00:00: 00 Yes [id number] Rock Reynaga PANTOPRAZOL E [address]MG DR 2022-0 4-11 00:00: 00 Yes [id number] Rock Reynaga FUROSEMIDE 40MG 2022-0 4-11 00:00: 00 Yes [id number] Rock Reynaga TAKE 1 TABLET BY MOUTH EVERY DAY 2022-0 4-10 00:00: 00 Yes Rock Reynaga SIMVASTATIN 40MG 2022-0 4- 00:00: 00 Yes [id number] Rock Reynaga TAKE 1 TABLET BY MOUTH TWICE A DAY FOR 7 DAYS 2022-0 3-21 00:00: 00 Yes Rock Reynaga simvastatin 40 mg tablet 2022-0 3-18 00:00: 00 Yes 40mg Take 1 tablet by mouth in the morning. [facility] TAKE 1 CAPSULE BY MOUTH TWICE A [...] 1 capsule by mouth in the morning. [facility] budesonide- formoteroL 160-4.5 mcg/actuati on inhaler 08-29 13:45: 28 Yes 2{puff} Inhale 2 Puffs in the morning and 2 Puffs in the evening. [facility] nitroglycer in (NITROSTAT) 0.4 mg sublingual tablet 08-29 13:45: [address] 1 tablet under the tongue every 5 (five) minutes as needed for Chest pain. [facility] mometasone (NASONEX) 50 mcg/actuati on nasal spray 08-29 13:45: 28 Yes 1{spray } Use 1 [place] in each nostril. [facility] clopidogreL (PLAVIX) 75 mg tablet 08-29 13:45: 28 Yes 75mg Take 1 tablet by mouth in the morning. [facility] ergocalcife rol, vitamin D2, (VITAMIN D ORAL) 08-29 13:45: 28 Yes Take by mouth. [facility] scopolamine transdermal 1 mg over 3 days patch 08-29 13:45: 28 Yes 1.5mg Apply 1 Patch to area(s) every 72 (seventy-t wo) hours. Pt uses as needed [facility] venlafaxine XR 150 mg 24 hr capsule 08-29 13:45: 28 Yes 150mg Take 1 capsule by mouth in the morning. [facility] TAKE 1 TABLET BY MOUTH EVERY DAY 08-22 00:00: 00 Yes Rock Reynaga lactated ringers IV infusion 1,000 mL 08-19 15:00: 00 Yes 1000mL at 50 mL/hr, 1,000 mL, IV Infusion, CONTINUOUS , Starting on Fri08/19/22 at 0900, Until Discontinu ed, Routine, PACU [facility] ondansetron (ZOFRAN (PF)) injection 4 mg 08-19 14:45: 53 Yes 4mg 4 mg, Slow IV Push, PRN, 1 dose, Starting on Fri08/19/22 at 0845, Until Discontinu ed, Routine, Nausea and Vomiting (N/V), PACU [facility] iohexoL (OMNIPAQUE 300-50 mL)) injection 08-19 13:42: 00 08-19 13:48 :18 No PRN, Starting on Fri08/19/22 at 0742, Until Fri08/19/22 at 0748, Routine, Intra-op [facility] bupivacaine (preserv free) (SENSORCAIN E MPF) 0.25 % (2.5 mg/mL) injection 08-19 13:41: 00 Yes PRN, Starting on Fri08/19/22 at 0741, Until Discontinu ed, Routine, Intra-op [facility] triamcinolo ne acetonide (KENALOG) injection 08-19 13:40: 00 Yes PRN, Starting on Fri08/19/22 at 0740, Until Discontinu ed, Routine, [facility] lid[facility] 1% (XYLOCAINE) 10 mg/mL (1 %) injection 08-19 13:40: 00 Yes PRN, Starting on Fri08/19/22 at 0740, Until Discontinu ed, Routine, [facility]op [facility] bupivacaine (preserv free) (SENSORCAIN E MPF) 0.25 % (2.5 mg/mL) injection 08-19 13:39: 00 08-19 13:48 :18 No PRN, Starting on Fri08/19/22 at 0739, Until Fri08/19/22 at 0748, Routine, Intra-op [facility] esomeprazol e 40 mg capsule 08-19 08:46: 35 Yes 40mg Take 40 mg by mouth daily. [facility] budesonide- formoteroL 160-4.5 mcg/actuati on inhaler 08-19 08:46: 35 Yes 2{puff} Inhale 2 Puffs 2 (two) times daily. [facility] nitroglycer in (NITROSTAT) 0.4 mg sublingual tablet 08-19 08:46: [address] 0.4 mg under the tongue every 5 (five) minutes as needed for Chest pain. [facility] mometasone (NASONEX) 50 mcg/actuati on nasal spray 08-19 08:46: 35 Yes 1{spray } Use 1 [place] in each nostril. [facility] clopidogreL (PLAVIX) 75 mg tablet 08-19 08:46: 35 Yes 75mg Take 1 tablet by mouth in the morning. [facility] ergocalcife rol, vitamin D2, (VITAMIN D ORAL) 08-19 08:46: 35 Yes Take by mouth. [facility] scopolamine transdermal 1 mg over 3 days patch 08-19 08:46: 35 Yes 1{patch } Apply 1 Patch to area(s) every 72 (seventy-t wo) hours. [facility] venlafaxine XR 150 mg 24 hr capsule 08-19 08:46: 35 Yes 150mg Take 150 mg by mouth in the morning. [facility] spironolact one 25 mg tablet 08-19 00:00: 00 Yes 25mg Take 1 tablet by mouth in the morning. [facility] TAKE 1 TABLET BY MOUTH EVERY DAY 08-19 00:00: 00 Yes Rock Reynaga TAKE 1 TABLET BY MOUTH EVERY DAY FOR 90 DAYS 08-19 00:00: 00 Yes Rock Reynaga isosorbide mononitrate 60 mg 24 hr tablet 214 00:00: 00 Yes 60mg Take 1 tablet by mouth in the morning. [facility] TAKE 1 TABLET BY MOUTH AT BEDTIME 2 00:00: 00 Yes Rock Reynaga rosuvastati n 20 mg tablet 2 00:00: 00 Yes 1{tbl} Take 1 tablet by mouth in the morning. [facility] rosuvastati n 20 mg tablet 08-02 00:00: 00 Yes 20mg Take 1 tablet by mouth in the morning. [facility] levothyroxi ne 25 mcg tablet 08-02 00:00: 00 Yes 25ug Take 1 tablet by mouth every morning. [facility] TAKE 1 CAPSULE BY MOUTH EVERY DAY 08-02 00:00: 00 Yes Rock Reynaga TAKE 1 CAPSULE BY MOUTH EVERY DAY 08-02 00:00: 00 Yes Rock Reynaga esomeprazol e 40 mg capsule 07-23 14:28: 00 Yes 40mg Take 40 mg by mouth daily. [facility] budesonide- formoteroL 160-4.5 mcg/actuati on inhaler 07-23 14:28: 00 Yes 2{puff} Inhale 2 Puffs 2 (two) times daily. [facility] nitroglycer in (NITROSTAT) 0.4 mg sublingual tablet 07-23 14:28: [address] 0.4 mg under the tongue every 5 (five) minutes as needed for Chest pain. [facility] mometasone (NASONEX) 50 mcg/actuati on nasal spray 07-23 14:28: 00 Yes 1{spray } Use 1 [place] in each nostril. [facility] clopidogreL (PLAVIX) 75 mg tablet 07-23 14:28: 00 Yes 75mg Take 75 mg by mouth daily. [facility] ergocalcife rol, vitamin D2, (VITAMIN D ORAL) 07-23 14:28: 00 Yes Take by mouth. [facility] scopolamine transdermal 1 mg over 3 days patch 07-23 14:28: 00 Yes 1{patch } Apply 1 Patch to area(s) every 72 (seventy-t wo) hours. [facility] venlafaxine XR 150 mg 24 hr capsule 07-23 14:28: 00 Yes 150mg Take 150 mg by mouth in the morning. [facility] TRELEGY ELLIPTA 200-62.5-25 mcg DsDv 07-22 00:00: 00 Yes 1{puff} Inhale 1 Puff in the morning. [facility] INHALE 1 PUFF ONCE DAILY 07-22 00:00: 00 Yes Rock Reynaga USE 2 PUFF(S) INHALED EVERY 4 HOURS NEEDED 30 DAYS 07-22 00:00: 00 Yes Rock Reynaga TAKE 1 TABLET BY MOUTH EVERY 12 HOURS FOR 7 DAYS 07-19 00:00: 00 Yes Rock Reynaga metroNIDAZO LE 500 mg tablet 07-19 00:00: 00 07-27 05:59 :00 No [id number] 500mg Take 1 tablet by mouth every 12 (twelve) hours for 7 days. [facility] esomeprazol e 40 mg capsule 07-17 13:17: 53 Yes 40mg Take 40 mg by mouth daily. [facility] budesonide- formoteroL 160-4.5 mcg/actuati on inhaler 07-17 13:17: 53 Yes 2{puff} Inhale 2 Puffs 2 (two) times daily. [facility] clopidogreL (PLAVIX) 75 mg tablet 07-17 13:17: 53 Yes 75mg Take 75 mg by mouth daily. [facility] scopolamine transdermal 1 mg over 3 days patch 07-17 13:17: 53 Yes 1{patch } Apply 1 Patch to area(s) every 72 (seventy-t wo) hours. [facility] venlafaxine XR 150 mg 24 hr capsule 07-17 13:17: 53 Yes 150mg Take 150 mg by mouth in the morning. [facility] mupirocin 2 % ointment 07-17 00:00: 00 Yes [id number] Apply to area(s) 3 (three) times daily. [facility] fluconazole 150 mg tablet 07-17 00:00: 00 Yes [id number] 150mg Take 1 tablet by mouth every other day. [facility] APPLY TO AFFECTED AREA 3 TIMES A [...] IN THE EVENING 07-15 00:00: 00 Yes Rcok Reynaga TAKE 1 TABLET BY MOUTH EVERY DAY 07-15 00:00: 00 Yes Rock Reynaga TAKE 1 CAPSULE BY MOUTH TWICE A DAY NEEDED 07-15 00:00: 00 Yes Rock Reynaga TAKE 1 TABLET BY MOUTH AT BEDTIME 07-11 00:00: 00 Yes Rcok Reynaga TAKE 1 TABLET BY MOUTH TWICE [...] 1 tablet by mouth in the morning. [facility] losartan 100 mg tablet 2021-06 00:00: 00 Yes 100mg Take 1 tablet by mouth in the morning. [facility] TAKE 1 TABLET BY MOUTH AT BEDTIME [...] SWALLOW 2021-06 00:00: 00 Yes Rock Reynaga TAKE 1 TABLET BY MOUTH TWICE A DAY FOR 7 DAYS 2022-1 0-19 00:00: 00 No AZITHROMYCI N 250 MG TABS 2021-06 0- 00:00: 00 Yes Rock Reynaga TAKE 1 TABLET BY MOUTH EVERY DAY 2021-06 00:00: 00 Yes Rock Reynaga SPRAY 2 SPRAYS INTO EACH NOSTRIL EVERY DAY 2021-06 00:00: 00 Yes Rock Reynaga Dose Unknown 2021-06 0 00:00: 00 Yes Rock Reynaga TAKE 1 TABLET BY MOUTH EVERY DAY 2021-06 00:00: 00 Yes Rock Reynaga TETRACYCLIN E HYDROCHLORI DE 500 MG 03-19 [...] ONCE A WEEK FOR 12 WEEKS 28 - 00:00: 00 Yes Rock Reynaga triamcinolo ne acetonide (KENALOG) injection 02-04 13:30: 00 02-04 16:21 :10 No PRN, Starting on Fri02/04/22 at 0830, Until Fri02/04/22 at 1121, Routine, Intra-op [facility] lidocaine 1% (XYLOCAINE) 10 mg/mL (1 %) injection 02-04 13:30: 00 02-04 16:21 :10 No PRN, Starting on Fri02/04/22 at 0830, Until Fri02/04/22 at 1121, Routine, Intra-op [facility] iohexoL (OMNIPAQUE 300-50 mL)) injection 02-04 13:30: 00 02-04 16:21 :10 No PRN, Starting on Fri02/04/22 at 0830, Until Fri02/04/22 at 1121, Routine, Intra-op [facility] bupivacaine (preserv free) (SENSORCAIN E MPF) 0.25 % (2.5 mg/mL) injection 02-04 13:30: 00 02-04 16:21 :10 No PRN, Starting on Fri02/04/22 at 0830, Until Fri02/04/22 at 1121, Routine, Intra-op [facility] lactated ringers IV infusion 1,000 mL 02-04 12:15: 00 02-04 12:14 :00 No 1000mL at 42 mL/hr, 1,000 mL, IV Infusion, ONCE, 1 dose, On Fri02/04/22 at 0715, Routine, DSU Pre-op [facility] esomeprazol e 40 mg capsule 02-04 09:21: 06 Yes 40mg Take 40 mg by mouth daily. [facility] budesonide- formoteroL 160-4.5 mcg/actuati on inhaler 02-04 09:21: 06 Yes 2{puff} Inhale 2 Puffs 2 (two) times daily. [facility] nitroglycer in (NITROSTAT) 0.4 mg sublingual tablet 02-04 09:21: [address] 0.4 mg under the tongue every 5 (five) minutes as needed for Chest pain. [facility] mometasone (NASONEX) 50 mcg/actuati on nasal spray 02-04 09:21: 06 Yes 1{spray } Use 1 [place] in each nostril. [facility] clopidogreL (PLAVIX) 75 mg tablet 02-04 09:21: 06 Yes 75mg Take 75 mg by mouth daily. [facility] ergocalcife rol, vitamin D2, (VITAMIN D ORAL) 02-04 09:21: 06 Yes Take by mouth. [facility] scopolamine transdermal 1 mg over 3 days patch 02-04 09:21: 06 Yes 1{patch } Apply 1 Patch to area(s) every 72 (seventy-t wo) hours. [facility] venlafaxine XR 150 mg 24 hr capsule 02-04 09:21: 06 Yes 150mg Take 150 mg by mouth in the morning. [facility] ALBUTEROL SULFATE HFA 108 (90 Base) MCG/ACT AERS 01-31 00:00: 00 Yes Rock Reynaga venlafaxine XR 150 mg 24 hr capsule 01-29 11:15: 29 Yes 150mg Take 1 capsule by mouth in the morning. [facility] nitroglycer in (NITROSTAT) 0.4 mg sublingual tablet 01-29 11:11: [address] 0.4 mg under the tongue every 5 (five) minutes as needed for Chest pain. [facility] mometasone (NASONEX) 50 mcg/actuati on nasal spray 01-29 11:11: 55 Yes 1{spray } Use 1 [place] in each nostril. [facility] esomeprazol e 40 mg capsule 01-29 11:11: 54 Yes 40mg Take 40 mg by mouth daily. [facility] budesonide- formoteroL 160-4.5 mcg/actuati on inhaler 01-29 11:11: 54 Yes 2{puff} Inhale 2 Puffs 2 (two) times daily. [facility] clopidogreL (PLAVIX) 75 mg tablet 01-29 11:11: 54 Yes 75mg Take 75 mg by mouth daily. [facility] ergocalcife rol, vitamin D2, (VITAMIN D ORAL) 01-29 11:11: 54 Yes Take by mouth. [facility] scopolamine transdermal 1 mg over 3 days patch 01-29 11:11: 54 Yes 1{patch } Apply 1 Patch to area(s) every 72 (seventy-t wo) hours. [facility] TAKE 1 TABLET BY MOUTH EVERY DAY IN THE MORNING ON EMPTY STOMACH FOR 90 DAYS 01-28 00:00: 00 Yes Rock Reynaga ATENOLOL 100 MG TABS 01-28 00:00: 00 Yes Rock Nela Ronnell ondansetron (ZOFRAN (PF)) injection 4 mg 01-21 13:05: 10 Yes 4mg 4 mg, Slow IV Push, PRN, 1 dose, Starting on Fri01/21/22 at 0805, Until Discontinu ed, Routine, Nausea and Vomiting (N/V), PACU [facility] bupivacaine (preserv free) (SENSORCAIN E MPF) 0.25 % (2.5 mg/mL) injection 01-21 12:40: 00 01-21 12:42 :04 No PRN, Starting on Fri01/21/22 at 0740, Until Fri01/21/22 at 0742, Routine, Intra-op [facility] triamcinolo ne acetonide (KENALOG) injection 01-21 12:31: 00 Yes PRN, Starting on Fri01/21/22 at 0731, Until Discontinu ed, Routine, Intra-op [facility] iohexoL (OMNIPAQUE 300-50 mL)) injection 01-21 12:31: 00 01-21 12:42 :04 No PRN, Starting on Fri01/21/22 at 0731, Until Fri01/21/22 at 0742, Routine, Intra-op [facility] lidocaine 1% (XYLOCAINE) 10 mg/mL (1 %) injection 01-21 12:30: 00 Yes PRN, Starting on Fri01/21/22 at 0730, Until Discontinu ed, Routine, Intra-op [facility] sodium citrate-cit jaime acid (BICITRA) 500-334 mg/5 mL solution 30 mL 01-21 12:30: 00 01-21 12:10 :00 No 30mL 30 mL, Oral, ONCE NOW, 1 dose, On Fri01/21/22 at 0730, Routine, DSU Pre-op [facility] lactated ringers IV infusion 1,000 mL 01-21 12:15: 00 01-21 12:09 :00 No 1000mL at 42 mL/hr, 1,000 mL, IV Infusion, ONCE, 1 dose, On Fri01/21/22 at 0715, Routine, DSU Pre-op [facility] esomeprazol e 40 mg capsule 01-21 09:12: 24 Yes 40mg Take 40 mg by mouth daily. [facility] budesonide- formoteroL 160-4.5 mcg/actuati on inhaler 01-21 09:12: 24 Yes 2{puff} Inhale 2 Puffs 2 (two) times daily. [facility] nitroglycer in (NITROSTAT) 0.4 mg sublingual tablet 01-21 09:12: [address] 0.4 mg under the tongue every 5 (five) minutes as needed for Chest pain. [facility] mometasone (NASONEX) 50 mcg/actuati on nasal spray 01-21 09:12: 24 Yes 1{spray } Use 1 [place] in each nostril. [facility] clopidogreL (PLAVIX) 75 mg tablet 01-21 09:12: 24 Yes 75mg Take 75 mg by mouth daily. [facility] ergocalcife rol, vitamin D2, (VITAMIN D ORAL) 01-21 09:12: 24 Yes Take by mouth. [facility] scopolamine transdermal 1 mg over 3 days patch 01-21 09:12: 24 Yes 1{patch } Apply 1 Patch to area(s) every 72 (seventy-t wo) hours. [facility] budesonide- formoteroL 160-4.5 mcg/actuati on inhaler 01-16 10:32: 27 Yes 2{puff} Inhale 2 Puffs 2 (two) times daily. [facility] nitroglycer in (NITROSTAT) 0.4 mg sublingual tablet 01-16 10:32: [address] 0.4 mg under the tongue every 5 (five) minutes as needed for Chest pain. [facility] mometasone (NASONEX) 50 mcg/actuati on nasal spray 01-16 10:32: 27 Yes 1{spray } Use 1 [place] in each nostril. [facility] clopidogreL (PLAVIX) 75 mg tablet 01-16 10:32: 27 Yes 75mg Take 75 mg by mouth daily. [facility] ergocalcife rol, vitamin D2, (VITAMIN D ORAL) 01-16 10:32: 27 Yes Take by mouth. [facility] scopolamine transdermal 1 mg over 3 days patch 01-16 10:32: 27 Yes 1{patch } Apply 1 Patch to area(s) every 72 (seventy-t wo) hours. [facility] TAKE 1 TABLET BY MOUTH EVERY DAY 01-15 00:00: 00 Yes Rock Reynaga NITAZOXANID E 500 MG TABS 01-14 00:00: 00 Yes Rock Nela Reynaga SUPREP BOWEL PREP KIT 17.5-3.13-1 .6 GM/177ML SOLN 01-09 00:00: 00 Yes Rock Nela Ronnell DICYCLOMINE HYDROCHLORI DE 10 MG 01-09 00:00: 00 Yes Rock Nela Reynaga LEVOFLOXACI N 250 MG TABS 01-08 00:00: 00 Yes Rock Nela Reynaga DOXYCYCLINE HYCLATE 100 MG TABS 01-08 00:00: 00 Yes Rock Nela Reynaga ONDANSETRON HYDROCHLORI DE 4 MG TABS 01-08 00:00: 00 Yes Rock Nela Ronnell bupivacaine (preserv free) (SENSORCAIN E MPF) 0.25 % (2.5 mg/mL) injection 01-07 14:15: 00 Yes PRN, Starting on Fri01/07/22 at 0915, Until Discontinu ed, Routine, Intra-op [facility] triamcinolo ne acetonide (KENALOG) injection 01-07 13:22: 00 Yes PRN, Starting on Fri01/07/22 at 0822, Until Discontinu ed, Routine, Intra-op [facility] lidocaine 1% (XYLOCAINE) 10 mg/mL (1 %) injection 01-07 13:21: 00 Yes PRN, Starting on Fri01/07/22 at 0821, Until Discontinu ed, Routine, Intra-op [facility] lactated ringers IV infusion 1,000 mL 01-07 12:00: 00 01-07 12:14 :00 No 1000mL at 42 mL/hr, 1,000 mL, IV Infusion, ONCE, 1 dose, On Fri01/07/22 at 0700, Routine, DSU Pre-op [facility] esomeprazol e 40 mg capsule 01-07 09:20: 10 Yes 40mg Take 40 mg by mouth daily. [facility] budesonide- formoteroL 160-4.5 mcg/actuati on inhaler 01-07 09:20: 10 Yes 2{puff} Inhale 2 Puffs 2 (two) times daily. [facility] nitroglycer in (NITROSTAT) 0.4 mg sublingual tablet 01-07 09:20: [address] 0.4 mg under the tongue every 5 (five) minutes as needed for Chest pain. [facility] mometasone (NASONEX) 50 mcg/actuati on nasal spray 01-07 09:20: 10 Yes 1{spray } Use 1 [place] in each nostril. [facility] clopidogreL (PLAVIX) 75 mg tablet 01-07 09:20: 10 Yes 75mg Take 75 mg by mouth daily. [facility] ergocalcife rol, vitamin D2, (VITAMIN D ORAL) 01-07 09:20: 10 Yes Take by mouth. [facility] scopolamine transdermal 1 mg over 3 days patch 01-07 09:20: 10 Yes 1{patch } Apply 1 Patch to area(s) every 72 (seventy-t wo) hours. [facility] simvastatin 40 mg tablet 01-06 00:00: 00 Yes 40mg Take 40 mg by mouth every evening. [facility] SIMVASTATIN 40 MG TABS 01-06 00:00: 00 Yes Rock Reynaga scopolamine transdermal 1 mg over 3 days patch 01-01 16:55: 04 Yes 1{patch } Apply 1 Patch to area(s) every 72 (seventy-t wo) hours. [facility] esomeprazol e 40 mg capsule 01-01 16:47: 46 Yes 40mg Take 40 mg by mouth daily. [facility] budesonide- formoteroL 160-4.5 mcg/actuati on inhaler 01-01 16:47: 46 Yes 2{puff} Inhale 2 Puffs 2 (two) times daily. [facility] nitroglycer in (NITROSTAT) 0.4 mg sublingual tablet 01-01 16:47: [address] 0.4 mg under the tongue every 5 (five) minutes as needed for Chest pain. [facility] mometasone (NASONEX) 50 mcg/actuati on nasal spray 01-01 16:47: 46 Yes 1{spray } Use 1 [place] in each nostril. [facility] clopidogreL (PLAVIX) 75 mg tablet 01-01 16:47: 46 Yes 75mg Take 75 mg by mouth daily. [facility] ergocalcife rol, vitamin D2, (VITAMIN D ORAL) 01-01 16:47: 46 Yes Take by mouth. [facility] TAKE 1 CAPSULE BY MOUTH TWICE A DAY NEEDED 12-23 00:00: 00 Yes Rock Reynaga scopolamine 1 mg over 3 days 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 0 12-13 00:00: 00 No 1mg over 3 days scopolamine 1 mg over 3 days 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 0 12-13 00:00: 00 Yes 1mg over 3 days Rock Reynaga TAKE 1 TABLET BY MOUTH EVERY 8 HOURS NEEDED 0 12-12 00:00: 00 Yes Rock Reynaga ondansetron 4 mg disintegrat ing tablet 12-12 00:00: 00 01-01 00:00 :00 No 1{tbl} Take 1 tablet by mouth as needed. [facility] Dose Unknown 12-11 00:00: 00 No Dose Unknown 12-11 00:00: 00 Yes Rock Reynaga TAKE 1 EACH EVERY 72 HOURS FOR 9 DAY(S) 12-11 00:00: 00 Yes Rock Reynaga TAKE 2 TABLETS BY MOUTH ONE TIME DOSE 12-10 00:00: 00 Yes Rock Reynaga prednisone 20 mg tablet 12-05 00:00: 00 No mg benzonatate 100 mg capsule 0 12-05 00:00: 00 No 12mg Dose Unknown 0 15 00:00: 00 No Dose Unknown 0 15 00:00: 00 No Dose Unknown 0 12-05 00:00: 00 No Dose Unknown 0 15 00:00: 00 No prednisone 20 mg tablet 0 15 00:00: 00 Yes mg Rock Reynaga benzonatate 100 mg capsule 15 00:00: 00 Yes 12mg Rock Reynaga Dose Unknown 15 00:00: 00 Yes Rock Reynaga Dose Unknown 15 00:00: 00 Yes Rock Reynaga Dose Unknown 15 00:00: 00 Yes Rock Reynaga Dose Unknown 15 00:00: 00 Yes Rock Reynaga Scopolamine 1 MG/3DAYS Scopolamine 1 MG/3DAYS 0 6-14 00:00: 00 No Scopolamin e 1 MG/3DAYS LINZESS 145 mcg capsule 0 11-16 00:00: 00 Yes 1{capsu le} Take 1 capsule by mouth in the morning. [facility] LINZESS 145 mcg capsule 5-27 00:00: 00 Yes 145ug Take 1 capsule by mouth in the morning. [facility] simvastatin 40 mg tablet 4-16 00:00: 00 01-01 00:00 :00 No 40mg Take 40 mg by mouth every evening. [facility] Vitamin B12 (Cyanocobal nayak) Vitamin B12 (Cyanocobal nayak) 07-25 00:00: 00 No 1000ug [facility] budesonide- formoteroL 160-4.5 mcg/actuati on inhaler 07-24 14:26: 39 Yes 2{puff} Inhale 2 Puffs in the morning and 2 Puffs in the evening. [facility] clopidogreL (PLAVIX) 75 mg tablet 07-24 14:26: 39 Yes 75mg Take 1 tablet by mouth in the morning. [facility] nystatin 100,000 unit/gram cream 07-24 00:00: 00 Yes [id number] Apply to area(s) 2 (two) times daily. [facility] esomeprazol e 40 mg capsule 07-02 08:18: 50 Yes 40mg Take 1 capsule by mouth in the morning. [facility] nitroglycer in (NITROSTAT) 0.4 mg sublingual tablet 07-02 08:18: [address] 1 tablet under the tongue every 5 (five) minutes as needed for Chest pain. [facility] mometasone (NASONEX) 50 mcg/actuati on nasal spray 07-02 08:18: 50 Yes 1{spray } Use 1 [place] in each nostril. [facility] ergocalcife rol, vitamin D2, (VITAMIN D ORAL) 07-02 08:18: 50 Yes Take by mouth. [facility] oxybutynin XL 5 mg 24 hr tablet - 00:00: 00 09-02 00:00 :00 No [id number] 5mg Take 1 tablet by mouth daily. [facility] PARoxetine (PAXIL) 10 mg tablet 06-28 00:00: 00 01-29 00:00 :00 No [id number] 10mg Take 1 tablet by mouth daily. [facility] estradioL 0.01 % (0.1 mg/gram) vaginal cream 02-08 00:00: 00 Yes [id number] 1g Insert 1 g into vagina weekly. Pea size In the labia/vagi na every night for 6 weeks then 3 times a week [facility] Flagyl 500 mg tablet 12-12 00:00: 00 No 1mg Flagyl 500 mg tablet 12-12 00:00: 00 Yes 1mg Rock Nela Ronnell Diflucan 150 mg tablet 12-07 00:00: 00 No 1mg Diflucan 150 mg tablet 12-07 00:00: 00 Yes 1mg Rock Nela Ronnell tamsulosin 0.4 mg 24 hr capsule 09-15 00:00: 00 Yes [id number] .4mg Take 1 capsule by mouth daily. [facility] ketorolac 10 mg tablet 09-11 00:00: 00 Yes [id number] 10mg Take 1 tablet by mouth every 6 (six) hours as needed for Pain (scale 7-10) (ONLY WHEN IN breakthrou gh PAIN, avoid use if pain tolerable) . [facility] ondansetron 4 mg tablet 09-11 00:00: 00 Yes [id number] 4mg Take 1 tablet by mouth every 8 (eight) hours as needed for Nausea and Vomiting (N/V). [facility] furosemide 40 mg tablet 06-25 00:00: 00 Yes 40mg Take 1 tablet by mouth in the morning. [facility] Kenalog (Triamcinol one) Kenalog (Triamcinol one) 2018-06 00:00: 00 No 40mg [facility] Cipro 500 mg tablet 2018-06 00:00: 00 No 1mg Flagyl 500 mg tablet 2018-06 00:00: 00 No 1mg Diflucan 150 mg tablet 2018-06 00:00: 00 No 1mg Cipro 500 mg tablet 2018-06 00:00: 00 Yes 1mg Rock Reynaga Flagyl 500 mg tablet 2018-06 00:00: 00 Yes 1mg Rock Reynaga Diflucan 150 mg tablet 2018-06 00:00: 00 Yes 1mg Rock Reynaga Plavix 75 mg tablet 2018-06 00:00: 00 No 1mg atenolol 100 mg tablet 2018-06 00:00: 00 No 1mg Plavix 75 mg tablet 2018-06 00:00: 00 Yes 1mg Rock Reynaga atenolol 100 mg tablet 2018-06 00:00: 00 Yes 1mg Rock Reynaga psyllium-callaway crose (METAMUCIL, SUGAR,) powder 2018-06 00:00: 00 Yes [id number] 1{packe t} Take 1 Packet by mouth 3 (three) times daily. [facility] psyllium-callaway crose (METAMUCIL, SUGAR,) powder 2018-06 00:00: 00 Yes [id number] 1{packe t} Take 1 Packet by mouth 3 (three) times daily. [facility] docusate (COLACE) 100 mg capsule 2018-06 00:00: 00 Yes [id number] 100mg Take 1 capsule by mouth 2 (two) times daily. [facility] LEVOTHYROXI NE 50 mcg tablet 10-27 00:00: 00 Yes [id number] TAKE 1 TABLET BY MOUTH EVERY MORNING. [facility] cyanocobala min (VITAMIN B-12) 1,000 mcg/mL injection 2016-06 005 00:00: 00 Yes 1000ug 1 mL by Intramuscu lar route once every month. [facility] nortriptyli ne 25 mg capsule 02-06 00:00: 00 07-16 00:00 :00 No 25mg Take 1 capsule by mouth at bedtime. [facility] clotrimazol e 1 % topical cream 10-28 00:00: 00 No 1% terbinafine HCl 250 mg tablet 10-28 00:00: 00 No 1mg clotrimazol e 1 % topical cream 10-28 00:00: 00 Yes 1% Rock Reynaga terbinafine HCl 250 mg tablet 10-28 00:00: 00 Yes 1mg Rock Reynaga isosorbide mononitrate 30 mg 24 hr tablet 10-10 00:00: 00 Yes 30mg Take 30 mg by mouth as needed. [facility] HYDROcodone -acetaminop hen 10-325 mg tablet 10-08 00:00: 00 Yes 1{tbl} Take 1 tablet by mouth every 8 (eight) hours as needed. [facility] HYDROcodone -acetaminop hen 5-325 mg tablet 10-08 00:00: 00 Yes 1{tbl} Take 1 tablet by mouth every 8 (eight) hours as needed. Pt takes PRN [facility] VITAMIN D2 50,000 unit capsule 10-07 00:00: 00 Yes [id number] Take 1 capsule by mouth weekly. Every two weeks [facility] Bactrim DS 800 mg-160 mg tablet 09-27 00:00: 00 No 1mg Bactrim DS 800 mg-160 mg tablet 09-27 00:00: 00 Yes 1mg Rock Reynaga atenolol 100 mg tablet 09-24 00:00: 00 Yes 100mg Take 1 tablet by mouth in the morning. [facility] triamcinolo ne acetonide 0.025 % topical cream 09-09 00:00: 00 No 1% loratadine 10 mg tablet 09-09 00:00: 00 No 1mg triamcinolo ne acetonide 0.025 % topical cream 09-09 00:00: 00 Yes 1% Rock Reynaga loratadine 10 mg tablet 09-09 00:00: 00 Yes 1mg Rock Reynaga atenolol 100 mg tablet 08-24 [...] injection solution 08-24 00:00: 00 No 2mcg/mL atenolol 100 mg tablet 08-24 00:00: 00 [...] 08-24 00:00: 00 Yes 2mcg/mL Rock Reynaga aspirin (ASPIRIN LOW DOSE) 81 mg EC tablet 07-22 00:00: 00 Yes 81mg Take 1 tablet by mouth daily. [facility] atorvastati n 40 mg tablet 07-22 00:00: 00 01-16 00:00 :00 No 40mg Take 1 tablet by mouth at bedtime. [facility] proMETHazin e 12.5 mg tablet 07-22 00:00: 00 01-01 00:00 :00 No 12.5mg Take 1 tablet by mouth every 6 (six) hours as needed for Nausea and Vomiting (N/V). 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 1.5 mg 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 (1 mg over 3 days) 2015-06 00:00: 00 Yes 1mg/0.3 mL Rock Reynaga meclizine 25 mg tablet 2015-06 00:00: 00 Yes 1mg Rock Reynaga Tessalon Perles 100 mg capsule 2015-06 00:00: 00 Yes 12mg Rock Reynaga clotrimazol e 1 % topical cream 2015-06 00:00: 00 No 1% clotrimazol e 1 % topical cream 2015-06 00:00: 00 Yes 1% Rock Reynaga Pataday 0.2 % eye drops 2015-06 00:00: 00 No 1% Pataday 0.2 % eye drops 2015-06 00:00: 00 Yes 1% Rock Reynaga 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 1.5 mg 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 (1 mg over 3 days) 02-15 00:00: 00 No 1mg/0.3 mL 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 1.5 mg 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 (1 mg over 3 days) 02-15 00:00: 00 Yes 1mg/0.3 mL Rock Nela Reynaga clarithromy keshia 500 mg tablet 12-19 00:00: 00 No 1mg clarithromy keshia 500 mg tablet 12-19 00:00: 00 Yes 1mg Rock Nela Reynaga naproxen 375 mg tablet 12-13 00:00: 00 No 1mg Tessalon Perles 100 mg capsule 12-13 00:00: 00 No 1mg albuterol sulfate 2.5 mg/3 mL (0.083 %) solution for nebulizatio n 12-13 00:00: 00 No 3/3 mL (0.083 %) naproxen 375 mg tablet 12-13 00:00: 00 Yes 1mg Rock Reynaga Tessalon Perles 100 mg capsule 12-13 00:00: 00 Yes 1mg Rock Reynaga albuterol sulfate 2.5 mg/3 mL (0.083 %) solution for nebulizatio n 12-13 00:00: 00 Yes 3/3 mL (0.083 %) Rock Reynaga azithromyci n 250 mg tablet 12-12 00:00: 00 No 1mg azithromyci n 250 mg tablet 12-12 00:00: 00 Yes 1mg Rock Reynaga cyanocobala min (vit B-12) 1,000 mcg/mL injection solution 12-06 00:00: 00 No 2mcg/mL cyanocobala min (vit B-12) 1,000 mcg/mL injection solution 12-06 00:00: 00 Yes 2mcg/mL Rock Reynaga Nasonex 50 mcg/actuati on [place] 11-18 00:00: 00 No 2mcg/ac tuation Nexium 40 mg capsule,del ayed release 11-18 00:00: 00 No 1mg Nasonex 50 mcg/actuati on [place] 11-18 00:00: 00 Yes 2mcg/ac tuation Rock Reynaga Nexium 40 mg capsule,del ayed release 11-18 00:00: 00 Yes 1mg Rock Nela Reynaga atenolol 100 mg tablet 10-14 00:00: 00 No 1mg Amitiza 24 mcg capsule 10-14 00:00: 00 No 1mcg atenolol 100 mg tablet 10-14 00:00: 00 Yes 1mg Rock Rondon Ronnell Amitiza 24 mcg capsule 10-14 00:00: 00 Yes 1mcg Rock Nela Reynaga 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 1.5 mg 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 (1 mg over 3 days) 08-31 00:00: 00 No 1mg/0.3 mL 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 1.5 mg 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 (1 mg over 3 days) 08-31 00:00: 00 Yes 1mg/0.3 mL Rock Reynaga promethazin e 25 mg tablet 07-04 00:00: 00 No 5mg promethazin e 25 mg tablet 07-04 00:00: 00 Yes 5mg Rock Reynaga furosemide 40 mg tablet 06-24 00:00: 00 No 1mg furosemide 40 mg tablet 06-24 00:00: 00 Yes 1mg Rock Reynaga meclizine 25 mg tablet 2014-06 00:00: 00 No 1mg meclizine 25 mg tablet 2014-06 00:00: 00 Yes 1mg Rock Reynaga CREON 36,000-114, 000- 180,000 unit CpDR 10-04 00:00: 00 Yes 2{tbl} Take 2 Tabs by mouth 2 (two) times daily. [facility] PROAIR HFA 90 mcg/actuati on inhaler 09-03 00:00: 00 Yes 2{puff} Inhale 2 Puffs every 6 (six) hours as needed for Wheezing or Shortness of Breath. [facility] hydrocodone 10 mg-acetamin ophen 325 mg tablet 06-23 00:00: 00 No 1mg hydrocodone 10 mg-acetamin ophen 325 mg tablet 06-23 00:00: 00 Yes 1mg Rock Reynaga lorazepam 0.5 mg tablet 06-23 00:00: 00 No 1mg lorazepam 0.5 mg tablet 06-23 00:00: 00 Yes 1mg Rock Reynaga Clopidogrel Bisulfate 75 MG Clopidogrel Bisulfate 75 MG No 1{table t} QD Clopidogre l Bisulfate 75 MG Simvastatin 40 MG Simvastatin 40 MG No 1{table t_in_th e_eveni ng} QD Simvastati n 40 MG Furosemide 20 MG Furosemide 20 MG No 1{table t} QD Furosemide 20 MG Synthroid 25 MCG Synthroid 25 MCG No QD Synthroid 25 MCG Famotidine 40 MG Famotidine 40 MG No 1{table t} QD Famotidine 40 MG NexIUM 40 MG NexIUM 40 MG No NexIUM 40 MG Immunizations Ordered Immunization Name Filled Immunization Name Date Status Comments Source Tdap Tdap 2024-06-01 00:00:00 Completed [facility] Prevnar 20 (PCV20) Prevnar 20 (PCV20) 2022-08-08 16:18:00 Completed [facility] FLUZONE HIGH DOSE OVER 65 FLUZONE HIGH DOSE OVER 65 2022-04-29 14:36:00 Completed [facility] FLUZONE HIGH DOSE OVER 65 FLUZONE HIGH DOSE OVER 65 2022-04-29 14:36:00 Completed [facility] FLUZONE HIGH DOSE OVER 65 FLUZONE HIGH DOSE OVER 65 2022-04-29 14:36:00 Completed [facility] FLUZONE HIGH DOSE OVER 65 FLUZONE HIGH DOSE OVER 65 2022-04-29 14:36:00 Completed [facility] FLUZONE HIGH DOSE OVER 65 FLUZONE HIGH DOSE OVER 65 2022-04-29 14:36:00 Completed [facility] FLUZONE HIGH DOSE OVER 65 FLUZONE HIGH DOSE OVER 65 2022-04-29 14:36:00 Completed [facility] FLUZONE HIGH DOSE OVER 65 FLUZONE HIGH DOSE OVER 65 2022-04-29 14:36:00 Completed [facility] FLUZONE HIGH DOSE OVER 65 FLUZONE HIGH DOSE OVER 65 2022-04-29 14:36:00 Completed [facility] SARS-COV-2 COVID-19 PFIZER VACCINE 2021-06-08 00:00:[address] [facility] SARS-COV-2 COVID-19 PFIZER VACCINE 2021-06-08 00:00:[address] [facility] SARS-COV-2 COVID-19 PFIZER VACCINE 2021-06-08 00:00:[address] [facility] SARS-COV-2 COVID-19 PFIZER VACCINE 2021-06-08 00:00:[address] [facility] SARS-COV-2 COVID-19 PFIZER VACCINE 2021-06-08 00:00:[address] [facility] Vitamin B12 (Cyanocobalamin) Vitamin B12 (Cyanocobalamin) 2021-03-23 09:40:00 Completed [facility] Vitamin B12 (Cyanocobalamin) Vitamin B12 (Cyanocobalamin) 2021-03-23 09:40:00 Completed [facility] Vitamin B12 (Cyanocobalamin) Vitamin B12 (Cyanocobalamin) 2021-02-15 08:57:00 Completed [facility] Vitamin B12 (Cyanocobalamin) Vitamin B12 (Cyanocobalamin) 2021-02-15 08:57:00 Completed [facility] Vitamin B12 (Cyanocobalamin) Vitamin B12 (Cyanocobalamin) 2020-12-21 14:20:00 Completed [facility] Vitamin B12 (Cyanocobalamin) Vitamin B12 (Cyanocobalamin) 2020-12-21 14:20:00 Completed [facility] Vitamin B12 (Cyanocobalamin) Vitamin B12 (Cyanocobalamin) 2020-12-21 14:20:00 Completed [facility] Vitamin B12 (Cyanocobalamin) Vitamin B12 (Cyanocobalamin) 2020-12-21 14:20:00 Completed [facility] Vitamin B12 (Cyanocobalamin) Vitamin B12 (Cyanocobalamin) 2020-12-21 14:20:00 Completed [facility] Vitamin B12 (Cyanocobalamin) Vitamin B12 (Cyanocobalamin) 2020-12-05 10:29:00 Completed [facility] Vitamin B12 (Cyanocobalamin) Vitamin B12 (Cyanocobalamin) 2020-12-05 10:29:00 Completed [facility] Vitamin B12 (Cyanocobalamin) Vitamin B12 (Cyanocobalamin) 2020-12-05 10:29:00 Completed [facility] Vitamin B12 (Cyanocobalamin) Vitamin B12 (Cyanocobalamin) 2020-12-05 10:29:00 Completed [facility] Vitamin B12 (Cyanocobalamin) Vitamin B12 (Cyanocobalamin) 2020-12-05 10:29:00 Completed [facility] Vitamin B12 (Cyanocobalamin) Vitamin B12 (Cyanocobalamin) 2020-10-26 16:27:00 Completed [facility] Vitamin B12 (Cyanocobalamin) Vitamin B12 (Cyanocobalamin) 2020-10-26 16:27:00 Completed [facility] Vitamin B12 (Cyanocobalamin) Vitamin B12 (Cyanocobalamin) 2020-10-26 16:27:00 Completed [facility] Vitamin B12 (Cyanocobalamin) Vitamin B12 (Cyanocobalamin) 2020-10-26 16:27:00 Completed [facility] Vitamin B12 (Cyanocobalamin) Vitamin B12 (Cyanocobalamin) 2020-10-26 16:27:00 Completed [facility] Vitamin B12 (Cyanocobalamin) Vitamin B12 (Cyanocobalamin) 2020-10-26 16:27:00 Completed [facility] SARS-COV-2 COVID-19 MODERNA VACCINE 2020-09-17 00:00:[address] [facility] SARS-COV-2 COVID-19 MODERNA VACCINE 2020-09-17 00:00:[address] [facility] SARS-COV-2 COVID-19 MODERNA VACCINE 2020-09-17 00:00:[address] [facility] SARS-COV-2 COVID-19 MODERNA VACCINE 2020-09-17 00:00:[address] [facility] SARS-COV-2 COVID-19 MODERNA VACCINE 2020-09-17 00:00:[address] [facility] SARS-COV-2 COVID-19 MODERNA VACCINE 2020-09-17 00:00:[address] [facility] SARS-COV-2 COVID-19 MODERNA VACCINE 2020-09-17 00:00:[address] [facility] SARS-COV-2 COVID-19 MODERNA VACCINE 2020-09-17 00:00:[address] [facility] SARS-COV-2 COVID-19 MODERNA VACCINE 2020-09-17 00:00:[address] [facility] SARS-COV-2 COVID-19 MODERNA VACCINE 2020-09-17 00:00:[address] [facility] SARS-COV-2 COVID-19 MODERNA VACCINE 2020-09-17 00:00:[address] [facility] SARS-COV-2 COVID-19 MODERNA VACCINE 2020-09-17 00:00:[address] [facility] SARS-COV-2 COVID-19 MODERNA VACCINE 2020-09-17 00:00:[address] [facility] SARS-COV-2 COVID-19 MODERNA VACCINE 2020-09-17 00:00:[address] [facility] SARS-COV-2 COVID-19 MODERNA VACCINE 2020-09-17 00:00:[address] [facility] SARS-COV-2 COVID-19 MODERNA VACCINE 2020-09-17 00:00:[address] [facility] SARS-COV-2 COVID-19 MODERNA VACCINE 2020-09-17 00:00:[address] [facility] SARS-COV-2 COVID-19 MODERNA VACCINE 2020-09-17 00:00:[address] [facility] SARS-COV-2 COVID-19 MODERNA VACCINE 2020-09-17 00:00:[address] [facility] SARS-COV-2 COVID-19 MODERNA 12+ YRS VACCINE 2020-09-17 00:00:[address] [facility] SARS-COV-2 COVID-19 MODERNA 12+ YRS VACCINE 2020-09-17 00:00:[address] [facility] SARS-COV-2 COVID-19 MODERNA 12+ YRS VACCINE 2020-09-17 00:00:[address] [facility] SARS-COV-2 COVID-19 MODERNA 12+ YRS VACCINE 2020-09-17 00:00:[address] [facility] SARS-COV-2 COVID-19 MODERNA 12+ YRS VACCINE 2020-09-17 00:00:[address] [facility] SARS-COV-2 COVID-19 MODERNA 12+ YRS VACCINE 2020-09-17 00:00:[address] [facility] SARS-COV-2 COVID-19 MODERNA 12+ YRS VACCINE 2020-09-17 00:00:[address] [facility] SARS-COV-2 COVID-19 MODERNA 12+ YRS VACCINE 2020-09-17 00:00:[address] [facility] SARS-COV-2 COVID-19 MODERNA 12+ YRS VACCINE 2020-09-17 00:00:[address] [facility] SARS-COV-2 COVID-19 MODERNA 12+ YRS VACCINE 2020-09-17 00:00:[address] [facility] SARS-COV-2 COVID-19 MODERNA 12+ YRS VACCINE 2020-09-17 00:00:[address] [facility] SARS-COV-2 COVID-19 MODERNA 12+ YRS VACCINE 2020-09-17 00:00:[address] [facility] SARS-COV-2 COVID-19 MODERNA 12+ YRS VACCINE 2020-09-17 00:00:[address] [facility] SARS-COV-2 COVID-19 MODERNA 12+ YRS VACCINE 2020-09-17 00:00:[address] [facility] SARS-COV-2 COVID-19 MODERNA 12+ YRS VACCINE 2020-09-17 00:00:[address] [facility] SARS-COV-2 COVID-19 MODERNA 12+ YRS VACCINE 2020-09-17 00:00:[address] [facility] SARS-COV-2 COVID-19 MODERNA 12+ YRS VACCINE 2020-09-17 00:00:[address] [facility] SARS-COV-2 COVID-19 MODERNA 12+ YRS VACCINE 2020-09-17 00:00:[address] [facility] SARS-COV-2 COVID-19 MODERNA 12+ YRS VACCINE 2020-09-17 00:00:[address] [facility] Vitamin B12 (Cyanocobalamin) Vitamin B12 (Cyanocobalamin) 2020-09-12 10:56:00 Completed [facility] Vitamin B12 (Cyanocobalamin) Vitamin B12 (Cyanocobalamin) 2020-09-12 10:56:00 Completed [facility] Vitamin B12 (Cyanocobalamin) Vitamin B12 (Cyanocobalamin) 2020-09-12 10:56:00 Completed [facility] Vitamin B12 (Cyanocobalamin) Vitamin B12 (Cyanocobalamin) 2020-09-12 10:56:00 Completed [facility] Vitamin B12 (Cyanocobalamin) Vitamin B12 (Cyanocobalamin) 2020-09-12 10:56:00 Completed [facility] Vitamin B12 (Cyanocobalamin) Vitamin B12 (Cyanocobalamin) 2020-09-12 10:56:00 Completed [facility] Vitamin B12 (Cyanocobalamin) Vitamin B12 (Cyanocobalamin) 2020-09-12 10:56:00 Completed [facility] SARS-COV-2 COVID-19 MODERNA VACCINE 2020-08-20 00:00:[address] [facility] SARS-COV-2 COVID-19 MODERNA VACCINE 2020-08-20 00:00:[address] [facility] SARS-COV-2 COVID-19 MODERNA VACCINE 2020-08-20 00:00:[address] [facility] SARS-COV-2 COVID-19 MODERNA VACCINE 2020-08-20 00:00:[address] [facility] SARS-COV-2 COVID-19 MODERNA VACCINE 2020-08-20 00:00:[address] [facility] SARS-COV-2 COVID-19 MODERNA VACCINE 2020-08-20 00:00:[address] [facility] SARS-COV-2 COVID-19 MODERNA VACCINE 2020-08-20 00:00:[address] [facility] SARS-COV-2 COVID-19 MODERNA VACCINE 2020-08-20 00:00:[address] [facility] SARS-COV-2 COVID-19 MODERNA VACCINE 2020-08-20 00:00:[address] [facility] SARS-COV-2 COVID-19 MODERNA VACCINE 2020-08-20 00:00:[address] [facility] SARS-COV-2 COVID-19 MODERNA VACCINE 2020-08-20 00:00:[address] [facility] SARS-COV-2 COVID-19 MODERNA VACCINE 2020-08-20 00:00:[address] [facility] SARS-COV-2 COVID-19 MODERNA VACCINE 2020-08-20 00:00:[address] [facility] SARS-COV-2 COVID-19 MODERNA VACCINE 2020-08-20 00:00:[address] [facility] SARS-COV-2 COVID-19 MODERNA VACCINE 2020-08-20 00:00:[address] [facility] SARS-COV-2 COVID-19 MODERNA VACCINE 2020-08-20 00:00:[address] [facility] SARS-COV-2 COVID-19 MODERNA VACCINE 2020-08-20 00:00:[address] [facility] SARS-COV-2 COVID-19 MODERNA VACCINE 2020-08-20 00:00:[address] [facility] SARS-COV-2 COVID-19 MODERNA VACCINE 2020-08-20 00:00:[address] [facility] SARS-COV-2 COVID-19 MODERNA 12+ YRS VACCINE 2020-08-20 00:00:[address] [facility] SARS-COV-2 COVID-19 MODERNA 12+ YRS VACCINE 2020-08-20 00:00:[address] [facility] SARS-COV-2 COVID-19 MODERNA 12+ YRS VACCINE 2020-08-20 00:00:[address] [facility] SARS-COV-2 COVID-19 MODERNA 12+ YRS VACCINE 2020-08-20 00:00:[address] [facility] SARS-COV-2 COVID-19 MODERNA 12+ YRS VACCINE 2020-08-20 00:00:[address] [facility] SARS-COV-2 COVID-19 MODERNA 12+ YRS VACCINE 2020-08-20 00:00:[address] [facility] SARS-COV-2 COVID-19 MODERNA 12+ YRS VACCINE 2020-08-20 00:00:[address] [facility] SARS-COV-2 COVID-19 MODERNA 12+ YRS VACCINE 2020-08-20 00:00:[address] [facility] SARS-COV-2 COVID-19 MODERNA 12+ YRS VACCINE 2020-08-20 00:00:[address] [facility] SARS-COV-2 COVID-19 MODERNA 12+ YRS VACCINE 2020-08-20 00:00:[address] [facility] SARS-COV-2 COVID-19 MODERNA 12+ YRS VACCINE 2020-08-20 00:00:[address] [facility] SARS-COV-2 COVID-19 MODERNA 12+ YRS VACCINE 2020-08-20 00:00:[address] [facility] SARS-COV-2 COVID-19 MODERNA 12+ YRS VACCINE 2020-08-20 00:00:[address] [facility] SARS-COV-2 COVID-19 MODERNA 12+ YRS VACCINE 2020-08-20 00:00:[address] [facility] SARS-COV-2 COVID-19 MODERNA 12+ YRS VACCINE 2020-08-20 00:00:[address] [facility] SARS-COV-2 COVID-19 MODERNA 12+ YRS VACCINE 2020-08-20 00:00:[address] [facility] SARS-COV-2 COVID-19 MODERNA 12+ YRS VACCINE 2020-08-20 00:00:[address] [facility] SARS-COV-2 COVID-19 MODERNA 12+ YRS VACCINE 2020-08-20 00:00:[address] [facility] SARS-COV-2 COVID-19 MODERNA 12+ YRS VACCINE 2020-08-20 00:00:[address] [facility] Vitamin B12 (Cyanocobalamin) Vitamin B12 (Cyanocobalamin) 2020-08-15 11:43:00 Completed [facility] Vitamin B12 (Cyanocobalamin) Vitamin B12 (Cyanocobalamin) 2020-08-15 11:43:00 Completed [facility] Vitamin B12 (Cyanocobalamin) Vitamin B12 (Cyanocobalamin) 2020-08-15 11:43:00 Completed [facility] Vitamin B12 (Cyanocobalamin) Vitamin B12 (Cyanocobalamin) 2020-08-15 11:43:00 Completed [facility] Vitamin B12 (Cyanocobalamin) Vitamin B12 (Cyanocobalamin) 2020-08-15 11:43:00 Completed [facility] Vitamin B12 (Cyanocobalamin) Vitamin B12 (Cyanocobalamin) 2020-08-15 11:43:00 Completed [facility] Vitamin B12 (Cyanocobalamin) Vitamin B12 (Cyanocobalamin) 2020-08-15 11:43:00 Completed [facility] Vitamin B12 (Cyanocobalamin) Vitamin B12 (Cyanocobalamin) 2020-07-31 15:32:00 Completed [facility] Vitamin B12 (Cyanocobalamin) Vitamin B12 (Cyanocobalamin) 2020-07-31 15:32:00 Completed [facility] Vitamin B12 (Cyanocobalamin) Vitamin B12 (Cyanocobalamin) 2020-07-31 15:32:00 Completed [facility] Vitamin B12 (Cyanocobalamin) Vitamin B12 (Cyanocobalamin) 2020-07-31 15:32:00 Completed [facility] Vitamin B12 (Cyanocobalamin) Vitamin B12 (Cyanocobalamin) 2020-07-31 15:32:00 Completed [facility] Vitamin B12 (Cyanocobalamin) Vitamin B12 (Cyanocobalamin) 2020-07-31 15:32:00 Completed [facility] Vitamin B12 (Cyanocobalamin) Vitamin B12 (Cyanocobalamin) 2020-07-31 15:32:00 Completed [facility] Vitamin B12 (Cyanocobalamin) Vitamin B12 (Cyanocobalamin) 2020-05-16 15:06:00 Completed [facility] Vitamin B12 (Cyanocobalamin) Vitamin B12 (Cyanocobalamin) 2020-05-16 15:06:00 Completed [facility] Vitamin B12 (Cyanocobalamin) Vitamin B12 (Cyanocobalamin) 2020-05-16 15:06:00 Completed [facility] Vitamin B12 (Cyanocobalamin) Vitamin B12 (Cyanocobalamin) 2020-05-16 15:06:00 Completed [facility] Vitamin B12 (Cyanocobalamin) Vitamin B12 (Cyanocobalamin) 2020-05-16 15:06:00 Completed [facility] Vitamin B12 (Cyanocobalamin) Vitamin B12 (Cyanocobalamin) 2020-05-16 15:06:00 Completed [facility] Vitamin B12 (Cyanocobalamin) Vitamin B12 (Cyanocobalamin) 2020-05-16 15:06:00 Completed [facility] Vitamin B12 (Cyanocobalamin) Vitamin B12 (Cyanocobalamin) 2020-05-16 15:06:00 Completed [facility] Vitamin B12 (Cyanocobalamin) Vitamin B12 (Cyanocobalamin) 2020-04-27 15:49:00 Completed [facility] Vitamin B12 (Cyanocobalamin) Vitamin B12 (Cyanocobalamin) 2020-04-27 15:49:00 Completed [facility] Vitamin B12 (Cyanocobalamin) Vitamin B12 (Cyanocobalamin) 2020-04-27 15:49:00 Completed [facility] Vitamin B12 (Cyanocobalamin) Vitamin B12 (Cyanocobalamin) 2020-04-27 15:49:00 Completed [facility] Vitamin B12 (Cyanocobalamin) Vitamin B12 (Cyanocobalamin) 2020-04-27 15:49:00 Completed [facility] Vitamin B12 (Cyanocobalamin) Vitamin B12 (Cyanocobalamin) 2020-04-27 15:49:00 Completed [facility] Vitamin B12 (Cyanocobalamin) Vitamin B12 (Cyanocobalamin) 2020-04-27 15:49:00 Completed [facility] Vitamin B12 (Cyanocobalamin) Vitamin B12 (Cyanocobalamin) 2020-04-27 15:49:00 Completed [facility] Vitamin B12 (Cyanocobalamin) Vitamin B12 (Cyanocobalamin) 2020-04-13 14:29:00 Completed [facility] Vitamin B12 (Cyanocobalamin) Vitamin B12 (Cyanocobalamin) 2020-04-13 14:29:00 Completed [facility] Vitamin B12 (Cyanocobalamin) Vitamin B12 (Cyanocobalamin) 2020-04-13 14:29:00 Completed [facility] Vitamin B12 (Cyanocobalamin) Vitamin B12 (Cyanocobalamin) 2020-04-13 14:29:00 Completed [facility] Vitamin B12 (Cyanocobalamin) Vitamin B12 (Cyanocobalamin) 2020-04-13 14:29:00 Completed [facility] Vitamin B12 (Cyanocobalamin) Vitamin B12 (Cyanocobalamin) 2020-04-13 14:29:00 Completed [facility] Vitamin B12 (Cyanocobalamin) Vitamin B12 (Cyanocobalamin) 2020-04-13 14:29:00 Completed [facility] Vitamin B12 (Cyanocobalamin) Vitamin B12 (Cyanocobalamin) 2020-04-13 14:29:00 Completed [facility] Vitamin B12 (Cyanocobalamin) Vitamin B12 (Cyanocobalamin) 2020-04-13 14:29:00 Completed [facility] Vitamin B12 (Cyanocobalamin) Vitamin B12 (Cyanocobalamin) 2020-03-30 11:47:00 Completed [facility] Vitamin B12 (Cyanocobalamin) Vitamin B12 (Cyanocobalamin) 2020-03-30 11:47:00 Completed [facility] Vitamin B12 (Cyanocobalamin) Vitamin B12 (Cyanocobalamin) 2020-03-30 11:47:00 Completed [facility] Vitamin B12 (Cyanocobalamin) Vitamin B12 (Cyanocobalamin) 2020-03-30 11:47:00 Completed [facility] Vitamin B12 (Cyanocobalamin) Vitamin B12 (Cyanocobalamin) 2020-03-30 11:47:00 Completed [facility] Vitamin B12 (Cyanocobalamin) Vitamin B12 (Cyanocobalamin) 2020-03-30 11:47:00 Completed [facility] Vitamin B12 (Cyanocobalamin) Vitamin B12 (Cyanocobalamin) 2020-03-30 11:47:00 Completed [facility] Vitamin B12 (Cyanocobalamin) Vitamin B12 (Cyanocobalamin) 2020-03-30 11:47:00 Completed [facility] Vitamin B12 (Cyanocobalamin) Vitamin B12 (Cyanocobalamin) 2020-03-30 11:47:00 Completed [facility] Vitamin B12 (Cyanocobalamin) Vitamin B12 (Cyanocobalamin) 2020-03-16 16:44:00 Completed [facility] Vitamin B12 (Cyanocobalamin) Vitamin B12 (Cyanocobalamin) 2020-03-16 16:44:00 Completed [facility] Vitamin B12 (Cyanocobalamin) Vitamin B12 (Cyanocobalamin) 2020-03-16 16:44:00 Completed [facility] Vitamin B12 (Cyanocobalamin) Vitamin B12 (Cyanocobalamin) 2020-03-16 16:44:00 Completed [facility] Vitamin B12 (Cyanocobalamin) Vitamin B12 (Cyanocobalamin) 2020-03-16 16:44:00 Completed [facility] Vitamin B12 (Cyanocobalamin) Vitamin B12 (Cyanocobalamin) 2020-03-16 16:44:00 Completed [facility] Vitamin B12 (Cyanocobalamin) Vitamin B12 (Cyanocobalamin) 2020-03-16 16:44:00 Completed [facility] Vitamin B12 (Cyanocobalamin) Vitamin B12 (Cyanocobalamin) 2020-03-16 16:44:00 Completed [facility] Vitamin B12 (Cyanocobalamin) Vitamin B12 (Cyanocobalamin) 2020-03-16 16:44:00 Completed [facility] Vitamin B12 (Cyanocobalamin) Vitamin B12 (Cyanocobalamin) 2020-03-16 16:44:00 Completed [facility] Kenalog (Triamcinolone) Kenalog (Triamcinolone) 2019-08-03 15:15:00 Completed [facility] Kenalog (Triamcinolone) Kenalog (Triamcinolone) 2019-08-03 15:15:00 Completed [facility] Kenalog (Triamcinolone) Kenalog (Triamcinolone) 2019-08-03 15:15:00 Completed [facility] Kenalog (Triamcinolone) Kenalog (Triamcinolone) 2019-08-03 15:15:00 Completed [facility] Kenalog (Triamcinolone) Kenalog (Triamcinolone) 2019-08-03 15:15:00 Completed [facility] Kenalog (Triamcinolone) Kenalog (Triamcinolone) 2019-08-03 15:15:00 Completed [facility] Kenalog (Triamcinolone) Kenalog (Triamcinolone) 2019-08-03 15:15:00 Completed [facility] Kenalog (Triamcinolone) Kenalog (Triamcinolone) 2019-08-03 15:15:00 Completed [facility] Kenalog (Triamcinolone) Kenalog (Triamcinolone) 2019-08-03 15:15:00 Completed [facility] Kenalog (Triamcinolone) Kenalog (Triamcinolone) 2019-08-03 15:15:00 Completed [facility] Kenalog (Triamcinolone) Kenalog (Triamcinolone) 2019-07-06 10:04:00 Completed [facility] Kenalog (Triamcinolone) Kenalog (Triamcinolone) 2019-07-06 10:04:00 Completed [facility] Kenalog (Triamcinolone) Kenalog (Triamcinolone) 2019-07-06 10:04:00 Completed [facility] Kenalog (Triamcinolone) Kenalog (Triamcinolone) 2019-07-06 10:04:00 Completed [facility] Kenalog (Triamcinolone) Kenalog (Triamcinolone) 2019-07-06 10:04:00 Completed [facility] Kenalog (Triamcinolone) Kenalog (Triamcinolone) 2019-07-06 10:04:00 [facility] Kenalog (Triamcinolone) Kenalog (Triamcinolone) 2019-07-06 10:04:00 [facility] Kenalog (Triamcinolone) Kenalog (Triamcinolone) 2019-07-06 10:04:00 [facility]pleted [facility] Kenalog (Triamcinolone) Kenalog (Triamcinolone) 2019-07-06 10:04:00 [facility]pleted [facility] Kenalog (Triamcinolone) Kenalog (Triamcinolone) 2019-07-06 10:04:00 Completed [facility] Kenalog (Triamcinolone) Kenalog (Triamcinolone) 2019-05-17 15:11:00 [facility] Kenalog (Triamcinolone) Kenalog (Triamcinolone) 2019-05-17 15:11:00 [facility] Kenalog (Triamcinolone) Kenalog (Triamcinolone) 2019-05-17 15:11:00 Completed [facility] Kenalog (Triamcinolone) Kenalog (Triamcinolone) 2019-05-17 15:11:00 [facility] Kenalog (Triamcinolone) Kenalog (Triamcinolone) 2019-05-17 15:11:00 [facility] Kenalog (Triamcinolone) Kenalog (Triamcinolone) 2019-05-17 15:11:00 [facility]pleted [facility] Kenalog (Triamcinolone) Kenalog (Triamcinolone) 2019-05-17 15:11:00 Completed [facility] Kenalog (Triamcinolone) Kenalog (Triamcinolone) 2019-05-17 15:11:00 [facility] Kenalog (Triamcinolone) Kenalog (Triamcinolone) 2019-05-17 15:11:00 Completed [facility] Kenalog (Triamcinolone) Kenalog (Triamcinolone) 2019-05-17 15:11:00 Completed [facility] Kenalog (Triamcinolone) Kenalog (Triamcinolone) 2018-03-25 10:41:00 Completed [facility] Kenalog (Triamcinolone) Kenalog (Triamcinolone) 2018-03-25 10:41:00 Completed [facility] Kenalog (Triamcinolone) Kenalog (Triamcinolone) 2018-03-25 10:41:00 Completed [facility] Kenalog (Triamcinolone) Kenalog (Triamcinolone) 2018-03-25 10:41:00 [facility]pleted [facility] Kenalog (Triamcinolone) Kenalog (Triamcinolone) 2018-03-25 10:41:00 [facility] Kenalog (Triamcinolone) Kenalog (Triamcinolone) 2018-03-25 10:41:00 [facility]pleted [facility] Kenalog (Triamcinolone) Kenalog (Triamcinolone) 2018-03-25 10:41:00 [facility] Kenalog (Triamcinolone) Kenalog (Triamcinolone) 2018-03-25 10:41:00 [facility] Kenalog (Triamcinolone) Kenalog (Triamcinolone) 2018-03-25 10:41:00 Completed [facility] Kenalog (Triamcinolone) Kenalog (Triamcinolone) 2018-03-25 10:41:00 Completed [facility] Kenalog (Triamcinolone) Kenalog (Triamcinolone) 2017-11-04 10:43:00 [facility] Kenalog (Triamcinolone) Kenalog (Triamcinolone) 2017-11-04 10:43:00 Completed [facility] Kenalog (Triamcinolone) Kenalog (Triamcinolone) 2017-11-04 10:43:00 Completed [facility] Kenalog (Triamcinolone) Kenalog (Triamcinolone) 2017-11-04 10:43:00 Completed [facility] Kenalog (Triamcinolone) Kenalog (Triamcinolone) 2017-11-04 10:43:00 Completed [facility] Kenalog (Triamcinolone) Kenalog (Triamcinolone) 2017-11-04 10:43:00 Completed [facility] Kenalog (Triamcinolone) Kenalog (Triamcinolone) 2017-11-04 10:43:00 Completed [facility] Kenalog (Triamcinolone) Kenalog (Triamcinolone) 2017-11-04 10:43:00 Completed [facility] Kenalog (Triamcinolone) Kenalog (Triamcinolone) 2017-11-04 10:43:00 Completed [facility] Kenalog (Triamcinolone) Kenalog (Triamcinolone) 2017-11-04 10:43:00 Completed [facility] Influenza Virus Vaccine 2007-09-22 00:00:[address] [facility] Pneumococcal Polysaccharide, PPSV23 (PNEUMOVAX) 2007-09-22 00:00:[address] [facility] Influenza Virus Vaccine 2007-09-22 00:00:[address] [facility] Pneumococcal Polysaccharide, PPSV23 (PNEUMOVAX) 2007-09-22 00:00:[address] [facility] Influenza Virus Vaccine 2007-09-22 00:00:[address] [facility] Pneumococcal Polysaccharide, PPSV23 (PNEUMOVAX) 2007-09-22 00:00:[address] [facility] Influenza Virus Vaccine 2007-09-22 00:00:[address] [facility] Pneumococcal Polysaccharide, PPSV23 (PNEUMOVAX) 2007-09-22 00:00:[address] [facility] Influenza Virus Vaccine 2007-09-22 00:00:[address] [facility] Pneumococcal Polysaccharide, PPSV23 (PNEUMOVAX) 2007-09-22 00:00:[address] [facility] Influenza Virus Vaccine 2007-09-22 00:00:[address] [facility] Pneumococcal Polysaccharide, PPSV23 (PNEUMOVAX) 2007-09-22 00:00:[address] [facility] Influenza Virus Vaccine 2007-09-22 00:00:[address] [facility] Pneumococcal Polysaccharide, PPSV23 (PNEUMOVAX) 2007-09-22 00:00:[address] [facility] Influenza Virus Vaccine 2007-09-22 00:00:[address] [facility] Pneumococcal Polysaccharide, PPSV23 (PNEUMOVAX) 2007-09-22 00:00:[address] [facility] Influenza Virus Vaccine 2007-09-22 00:00:[address] [facility] Pneumococcal Polysaccharide, PPSV23 (PNEUMOVAX) 2007-09-22 00:00:[address] [facility] Influenza Virus Vaccine 2007-09-22 00:00:[address] [facility] Pneumococcal Polysaccharide, PPSV23 (PNEUMOVAX) 2007-09-22 00:00:[address] [facility] Influenza Virus Vaccine 2007-09-22 00:00:[address] [facility] Pneumococcal Polysaccharide, PPSV23 (PNEUMOVAX) 2007-09-22 00:00:[address] [facility] Influenza Virus Vaccine 2007-09-22 00:00:[address] [facility] Pneumococcal Polysaccharide, PPSV23 (PNEUMOVAX) 2007-09-22 00:00:[address] [facility] Influenza Virus Vaccine 2007-09-22 00:00:[address] [facility] Pneumococcal Polysaccharide, PPSV23 (PNEUMOVAX) 2007-09-22 00:00:[address] [facility] Influenza Virus Vaccine 2007-09-22 00:00:[address] [facility] Pneumococcal Polysaccharide, PPSV23 (PNEUMOVAX) 2007-09-22 00:00:[address] [facility] Influenza Virus Vaccine 2007-09-22 00:00:[address] [facility] Pneumococcal Polysaccharide, PPSV23 (PNEUMOVAX) 2007-09-22 00:00:[address] [facility] Influenza Virus Vaccine 2007-09-22 00:00:[address] [facility] Pneumococcal Polysaccharide, PPSV23 (PNEUMOVAX) 2007-09-22 00:00:[address] [facility] Influenza Virus Vaccine 2007-09-22 00:00:[address] [facility] Pneumococcal Polysaccharide, PPSV23 (PNEUMOVAX) 2007-09-22 00:00:[address] [facility] Influenza Virus Vaccine 2007-09-22 00:00:[address] [facility] Pneumococcal Polysaccharide, PPSV23 (PNEUMOVAX) 2007-09-22 00:00:[address] [facility] Influenza Virus Vaccine 2007-09-22 00:00:[address] [facility] Pneumococcal Polysaccharide, PPSV23 (PNEUMOVAX) 2007-09-22 00:00:[address] [facility] Influenza Virus Vaccine 2007-09-22 00:00:[address] [facility] Pneumococcal Polysaccharide, PPSV23 (PNEUMOVAX) 2007-09-22 00:00:[address] [facility] Influenza Virus Vaccine 2007-09-22 00:00:[address] [facility] Pneumococcal Polysaccharide, PPSV23 (PNEUMOVAX) 2007-09-22 00:00:[address] [facility] Influenza Virus Vaccine 2007-09-22 00:00:[address] [facility] Pneumococcal Polysaccharide, PPSV23 (PNEUMOVAX) 2007-09-22 00:00:[address] [facility] Influenza Virus Vaccine 2007-09-22 00:00:[address] [facility] Pneumococcal Polysaccharide, PPSV23 (PNEUMOVAX) 2007-09-22 00:00:[address] [facility] Influenza Virus Vaccine 2007-09-22 00:00:[address] [facility] Pneumococcal Polysaccharide, PPSV23 (PNEUMOVAX) 2007-09-22 00:00:[address] [facility] Influenza Virus Vaccine 2007-09-22 00:00:[address] [facility] Pneumococcal Polysaccharide, PPSV23 (PNEUMOVAX) 2007-09-22 00:00:[address] [facility] Influenza Virus Vaccine 2007-09-22 00:00:[address] [facility] Pneumococcal Polysaccharide, PPSV23 (PNEUMOVAX) 2007-09-22 00:00:[address] [facility] Influenza Virus Vaccine 2007-09-22 00:00:[address] [facility] Pneumococcal Polysaccharide, PPSV23 (PNEUMOVAX) 2007-09-22 00:00:[address] [facility] Influenza Virus Vaccine 2007-09-22 00:00:[address] [facility] Pneumococcal Polysaccharide, PPSV23 (PNEUMOVAX) 2007-09-22 00:00:[address] [facility] Influenza Virus Vaccine 2007-09-22 00:00:[address] [facility] Pneumococcal Polysaccharide, PPSV23 (PNEUMOVAX) 2007-09-22 00:00:[address] [facility] Influenza Virus Vaccine 2007-09-22 00:00:[address] [facility] Pneumococcal Polysaccharide, PPSV23 (PNEUMOVAX) 2007-09-22 00:00:[address] [facility] Influenza Virus Vaccine 2007-09-22 00:00:[address] [facility] Pneumococcal Polysaccharide, PPSV23 (PNEUMOVAX) 2007-09-22 00:00:[address] [facility] Influenza Virus Vaccine 2007-09-22 00:00:[address] [facility] Pneumococcal Polysaccharide, PPSV23 (PNEUMOVAX) 2007-09-22 00:00:[address] [facility] Influenza Virus Vaccine 2007-09-22 00:00:[address] [facility] Pneumococcal Polysaccharide, PPSV23 (PNEUMOVAX) 2007-09-22 00:00:[address] [facility] Influenza Virus Vaccine 2007-09-22 00:00:[address] [facility] Pneumococcal Polysaccharide, PPSV23 (PNEUMOVAX) 2007-09-22 00:00:[address] [facility] Influenza Virus Vaccine 2007-09-22 00:00:[address] [facility] Pneumococcal Polysaccharide, PPSV23 (PNEUMOVAX) 2007-09-22 00:00:[address] [facility] Influenza Virus Vaccine 2007-09-22 00:00:[address] [facility] Pneumococcal Polysaccharide, PPSV23 (PNEUMOVAX) 2007-09-22 00:00:[address] [facility] Influenza Virus Vaccine 2007-09-22 00:00:[address] [facility] Pneumococcal Polysaccharide, PPSV23 (PNEUMOVAX) 2007-09-22 00:00:[address] [facility] Influenza Virus Vaccine 2007-09-22 00:00:[address] [facility] Pneumococcal Polysaccharide, PPSV23 (PNEUMOVAX) 2007-09-22 00:00:[address] [facility] Prevnar 20 (PCV20) Prevnar 20 (PCV20) Unknown Com[facility] FLUZONE HIGH DOSE OVER 65 FLUZONE HIGH DOSE OVER 65 Unknown Completed [facility] Prevnar 20 (PCV20) Prevnar 20 (PCV20) Unknown Completed [facility] FLUZONE HIGH DOSE OVER 65 FLUZONE HIGH DOSE OVER 65 Unknown Completed [facility] Prevnar 20 (PCV20) Prevnar 20 (PCV20) Unknown Completed [facility] FLUZONE HIGH DOSE OVER 65 FLUZONE HIGH DOSE OVER 65 Unknown Completed [facility] Prevnar 20 (PCV20) Prevnar 20 (PCV20) Unknown Completed [facility] FLUZONE HIGH DOSE OVER 65 FLUZONE HIGH DOSE OVER 65 Unknown Completed [facility] Prevnar 20 (PCV20) Prevnar 20 (PCV20) Unknown Completed [facility] FLUZONE HIGH DOSE OVER 65 FLUZONE HIGH DOSE OVER 65 Unknown Completed [facility] Prevnar 20 (PCV20) Prevnar 20 (PCV20) Unknown Completed [facility] FLUZONE HIGH DOSE OVER 65 FLUZONE HIGH DOSE OVER 65 Unknown Completed [facility] Prevnar 20 (PCV20) Prevnar 20 (PCV20) Unknown Completed [facility] FLUZONE HIGH DOSE OVER 65 FLUZONE HIGH DOSE OVER 65 Unknown Completed [facility] Prevnar 20 (PCV20) Prevnar 20 (PCV20) Unknown Completed [facility] FLUZONE HIGH DOSE OVER 65 FLUZONE HIGH DOSE OVER 65 Unknown Completed [facility] Prevnar 20 (PCV20) Prevnar 20 (PCV20) Unknown Completed [facility] FLUZONE HIGH DOSE OVER 65 FLUZONE HIGH DOSE OVER 65 Unknown Completed [facility] Prevnar 20 (PCV20) Prevnar 20 (PCV20) Unknown Completed [facility] FluAD Quad SD FluAD Quad SD Unknown Completed [facility] FLUZONE HIGH DOSE OVER 65 FLUZONE HIGH DOSE OVER 65 Unknown Completed [facility] Prevnar 20 (PCV20) Prevnar 20 (PCV20) Unknown Completed [facility] FluAD Quad SD FluAD Quad SD Unknown Completed [facility] FLUZONE HIGH DOSE OVER 65 FLUZONE HIGH DOSE OVER 65 Unknown Completed [facility] Prevnar 20 (PCV20) Prevnar 20 (PCV20) Unknown Completed [facility] FluAD Quad SD FluAD Quad SD Unknown Completed [facility] FLUZONE HIGH DOSE OVER 65 FLUZONE HIGH DOSE OVER 65 Unknown Completed [facility] Prevnar 20 (PCV20) Prevnar 20 (PCV20) Unknown Completed [facility] FluAD Quad SD FluAD Quad SD Unknown Completed [facility] FLUZONE HIGH DOSE OVER 65 FLUZONE HIGH DOSE OVER 65 Unknown Completed [facility] Prevnar 20 (PCV20) Prevnar 20 (PCV20) Unknown Completed [facility] FluAD Quad SD FluAD Quad SD Unknown Completed [facility] FLUZONE HIGH DOSE OVER 65 FLUZONE HIGH DOSE OVER 65 Unknown Completed [facility] Prevnar 20 (PCV20) Prevnar 20 (PCV20) Unknown Completed [facility] FluAD Quad SD FluAD Quad SD Unknown Completed [facility] FLUZONE HIGH DOSE OVER 65 FLUZONE HIGH DOSE OVER 65 Unknown Completed [facility] Prevnar 20 (PCV20) Prevnar 20 (PCV20) Unknown Completed [facility] FluAD Quad SD FluAD Quad SD Unknown Completed [facility] FLUZONE HIGH DOSE OVER 65 FLUZONE HIGH DOSE OVER 65 Unknown Completed [facility] Prevnar 20 (PCV20) Prevnar 20 (PCV20) Unknown Completed [facility] FluAD Quad SD FluAD Quad SD Unknown Completed [facility] FLUZONE HIGH DOSE OVER 65 FLUZONE HIGH DOSE OVER 65 Unknown Completed [facility] Prevnar 20 (PCV20) Prevnar 20 (PCV20) Unknown Completed [facility] FluAD Quad SD FluAD Quad SD Unknown Completed [facility] FLUZONE HIGH DOSE OVER 65 FLUZONE HIGH DOSE OVER 65 Unknown Completed [facility] Prevnar 20 (PCV20) Prevnar 20 (PCV20) Unknown Completed [facility] FluAD Quad SD FluAD Quad SD Unknown Completed [facility] FLUZONE HIGH DOSE OVER 65 FLUZONE HIGH DOSE OVER 65 Unknown Completed [facility] Prevnar 20 (PCV20) Prevnar 20 (PCV20) Unknown Completed [facility] Fluad (aIIV4) - SDS - 0.5mL Fluad (aIIV4) - SDS - 0.5mL Unknown Completed [facility] FLUZONE HIGH DOSE OVER 65 FLUZONE HIGH DOSE OVER 65 Unknown Completed [facility] Prevnar 20 (PCV20) Prevnar 20 (PCV20) Unknown Completed [facility] Fluad (aIIV4) - SDS - 0.5mL Fluad (aIIV4) - SDS - 0.5mL Unknown Completed [facility] FLUZONE HIGH DOSE OVER 65 FLUZONE HIGH DOSE OVER 65 Unknown Completed [facility] Prevnar 20 (PCV20) Prevnar 20 (PCV20) Unknown Completed [facility] Fluad (aIIV4) - SDS - 0.5mL Fluad (aIIV4) - SDS - 0.5mL Unknown Completed [facility] FLUZONE HIGH DOSE OVER 65 FLUZONE HIGH DOSE OVER 65 Unknown Completed [facility] Prevnar 20 (PCV20) Prevnar 20 (PCV20) Unknown Completed [facility] Fluad (aIIV4) - SDS - 0.5mL Fluad (aIIV4) - SDS - 0.5mL Unknown Completed [facility] FLUZONE HIGH DOSE OVER 65 FLUZONE HIGH DOSE OVER 65 Unknown Completed [facility] Prevnar 20 (PCV20) Prevnar 20 (PCV20) Unknown Completed [facility] Fluad (aIIV4) - SDS - 0.5mL Fluad (aIIV4) - SDS - 0.5mL Unknown Completed [facility] FLUZONE HIGH DOSE OVER 65 FLUZONE HIGH DOSE OVER 65 Unknown Completed [facility] Prevnar 20 (PCV20) Prevnar 20 (PCV20) Unknown Completed [facility] Fluad (aIIV4) - SDS - 0.5mL Fluad (aIIV4) - SDS - 0.5mL Unknown Completed [facility] FLUZONE HIGH DOSE OVER 65 FLUZONE HIGH DOSE OVER 65 Unknown Completed [facility] Prevnar 20 (PCV20) Prevnar 20 (PCV20) Unknown Completed [facility] Fluad (aIIV4) - SDS - 0.5mL Fluad (aIIV4) - SDS - 0.5mL Unknown Completed [facility] FLUZONE HIGH DOSE OVER 65 FLUZONE HIGH DOSE OVER 65 Unknown Completed [facility] Prevnar 20 (PCV20) Prevnar 20 (PCV20) Unknown Completed [facility] Fluad (aIIV4) - SDS - 0.5mL Fluad (aIIV4) - SDS - 0.5mL Unknown Completed [facility] FLUZONE HIGH DOSE OVER 65 FLUZONE HIGH DOSE OVER 65 Unknown Completed [facility] Prevnar 20 (PCV20) Prevnar 20 (PCV20) Unknown Completed [facility] Fluad (aIIV4) - SDS - 0.5mL Fluad (aIIV4) - SDS - 0.5mL Unknown Completed [facility] FLUZONE HIGH DOSE OVER 65 FLUZONE HIGH DOSE OVER 65 Unknown Completed [facility] Prevnar 20 (PCV20) Prevnar 20 (PCV20) Unknown Completed [facility] Fluad (aIIV4) - SDS - 0.5mL Fluad (aIIV4) - SDS - 0.5mL Unknown Completed [facility] FLUZONE HIGH DOSE OVER 65 FLUZONE HIGH DOSE OVER 65 Unknown Completed [facility] Prevnar 20 (PCV20) Prevnar 20 (PCV20) Unknown Completed [facility] Fluad (aIIV4) - SDS - 0.5mL Fluad (aIIV4) - SDS - 0.5mL Unknown Completed [facility] FLUZONE HIGH DOSE OVER 65 FLUZONE HIGH DOSE OVER 65 Unknown Completed [facility] Prevnar 20 (PCV20) Prevnar 20 (PCV20) Unknown Completed [facility] Fluad (aIIV4) - SDS - 0.5mL Fluad (aIIV4) - SDS - 0.5mL Unknown Completed [facility] FLUZONE HIGH DOSE OVER 65 FLUZONE HIGH DOSE OVER 65 Unknown Completed [facility] Prevnar 20 (PCV20) Prevnar 20 (PCV20) Unknown Completed [facility] Fluad (aIIV4) - SDS - 0.5mL Fluad (aIIV4) - SDS - 0.5mL Unknown Completed [facility] FLUZONE HIGH DOSE OVER 65 FLUZONE HIGH DOSE OVER 65 Unknown Completed [facility] Prevnar 20 (PCV20) Prevnar 20 (PCV20) Unknown Completed [facility] Fluad (aIIV4) - SDS - 0.5mL Fluad (aIIV4) - SDS - 0.5mL Unknown Completed [facility] FLUZONE HIGH DOSE OVER 65 FLUZONE HIGH DOSE OVER 65 Unknown Completed [facility] Fluad (IIV) - SDS - 0.5mL Fluad (IIV) - SDS - 0.5mL Unknown Completed [facility] Influenza Virus Vaccine Unknown Completed [facility] Pneumococcal Polysaccharide, PPSV23 (PNEUMOVAX) Unknown Completed [facility] SARS-COV-2 COVID-19 PFIZER VACCINE Unknown Completed [facility] SARS-COV-2 COVID-19 MODERNA 12+ YRS VACCINE Unknown Completed [facility] Influenza Virus Vaccine Unknown Completed [facility] Pneumococcal Polysaccharide, PPSV23 (PNEUMOVAX) Unknown Completed [facility] SARS-COV-2 COVID-19 MODERNA 12+ YRS VACCINE Unknown Completed [facility] SARS-COV-2 COVID-19 PFIZER VACCINE Unknown Completed [facility] Influenza Virus Vaccine Unknown Completed [facility] Pneumococcal Polysaccharide, PPSV23 (PNEUMOVAX) Unknown Completed [facility] SARS-COV-2 COVID-19 MODERNA 12+ YRS VACCINE Unknown Completed [facility] SARS-COV-2 COVID-19 PFIZER VACCINE Unknown Completed [facility] Influenza Virus Vaccine Unknown Completed [facility] Pneumococcal Polysaccharide, PPSV23 (PNEUMOVAX) [facility] MODERNA 12+ YRS VACCINE Unknown Completed [facility] SARS-COV-2 COVID-19 PFIZER VACCINE Unknown Completed [facility] Influenza Virus Vaccine Unknown Completed [facility] Pneumococcal Polysaccharide, PPSV23 (PNEUMOVAX) Unknown Completed [facility] SARS-COV-2 COVID-19 MODERNA 12+ YRS VACCINE Unknown Completed [facility] SARS-COV-2 COVID-19 PFIZER VACCINE Unknown Completed [facility] Influenza Virus Vaccine Unknown Completed [facility] Pneumococcal Polysaccharide, PPSV23 (PNEUMOVAX) Unknown Completed [facility] SARS-COV-2 COVID-19 MODERNA 12+ YRS VACCINE Unknown Completed [facility] SARS-COV-2 COVID-19 PFIZER VACCINE Unknown Completed [facility] Influenza Virus Vaccine Unknown Completed [facility] Pneumococcal Polysaccharide, PPSV23 (PNEUMOVAX) [facility] COVID-19 MODERNA 12+ YRS VACCINE Unknown Completed [facility] SARS-COV-2 COVID-19 PFIZER VACCINE Unknown Completed [facility] Influenza Virus Vaccine Unknown Completed [facility] Pneumococcal Polysaccharide, PPSV23 (PNEUMOVAX) [facility]-COV-2 COVID-19 MODERNA 12+ YRS VACCINE Unknown Completed [facility] SARS-COV-2 COVID-19 PFIZER VACCINE Unknown Completed [facility] Influenza Virus Vaccine Unknown Completed [facility] Pneumococcal Polysaccharide, PPSV23 (PNEUMOVAX) Unknown Completed [facility] SARS-COV-2 COVID-19 MODERNA 12+ YRS VACCINE Unknown Completed [facility] SARS-COV-2 COVID-19 PFIZER VACCINE Unknown Completed [facility] Influenza Virus Vaccine Unknown Completed [facility] Pneumococcal Polysaccharide, PPSV23 (PNEUMOVAX) Unknown Completed [facility] SARS-COV-2 COVID-19 MODERNA 12+ YRS VACCINE Unknown Completed [facility] SARS-COV-2 COVID-19 PFIZER VACCINE Unknown Completed [facility] Influenza Virus Vaccine Unknown Completed [facility] Pneumococcal Polysaccharide, PPSV23 (PNEUMOVAX) Unknown Completed [facility] SARS-COV-2 COVID-19 MODERNA 12+ YRS VACCINE Unknown Completed [facility] SARS-COV-2 COVID-19 PFIZER VACCINE Unknown Completed [facility] Influenza Virus Vaccine Unknown Completed [facility] Pneumococcal Polysaccharide, PPSV23 (PNEUMOVAX) Unknown Completed [facility] SARS-COV-2 COVID-19 MODERNA 12+ YRS VACCINE Unknown Completed [facility] SARS-COV-2 COVID-19 PFIZER VACCINE Unknown Completed [facility] Influenza Virus Vaccine Unknown Completed [facility] Pneumococcal Polysaccharide, PPSV23 (PNEUMOVAX) Unknown Completed [facility] SARS-COV-2 COVID-19 MODERNA 12+ YRS VACCINE Unknown Completed [facility] SARS-COV-2 COVID-19 PFIZER VACCINE Unknown Completed [facility] Influenza Virus Vaccine Unknown Completed [facility] Pneumococcal Polysaccharide, PPSV23 (PNEUMOVAX) Unknown Completed [facility] SARS-COV-2 COVID-19 MODERNA 12+ YRS VACCINE Unknown Completed [facility] SARS-COV-2 COVID-19 PFIZER VACCINE Unknown Completed [facility] Influenza Virus Vaccine Unknown Completed [facility] Pneumococcal Polysaccharide, PPSV23 (PNEUMOVAX) Unknown Completed [facility] SARS-COV-2 COVID-19 MODERNA 12+ YRS VACCINE Unknown Completed [facility] SARS-COV-2 COVID-19 PFIZER VACCINE Unknown Completed [facility] Vital Signs Vital Name Observation Time Observation Value Comments S ource height 2024-06-02 13:30:00 65 [in_i] Commo n [facility] weight 2024-06-02 13:30:00 171 [lb_av] Comm on [facility] temperature 2024-06-02 13:30:00 98.1 [degF] Com mon [facility] bmi 2024-06-02 13:30:00 28.45 kg/m2 Comm on [facility] oximetry 2024-06-02 13:30:00 93 % Commo n [facility] blood pressure systolic 2024-06-02 13:30:00 119 mm[Hg] Common [facility] blood pressure diastolic 2024-06-02 13:30:00 70 mm[Hg] [facility] height 2024-04-01 09:40:00 65 [in_i] Commo n [facility] weight 2024-04-01 09:40:00 175 [lb_av] Comm on [facility] temperature 2024-04-01 09:40:00 97.3 [degF] Com mon [facility] bmi 2024-04-01 09:40:00 29.12 kg/m2 Comm on [facility] oximetry 2024-04-01 09:40:00 96 % Commo n [facility] respiratory rate 2024-04-01 09:40:00 18 /min Common [facility] blood pressure systolic 2024-04-01 09:40:00 130 mm[Hg] Common [facility] blood pressure diastolic 2024-04-01 09:40:00 70 mm[Hg] [facility] Systolic blood pressure 2024-03-08 13:25:00 134 mm[Hg] [facility] Diastolic blood pressure 2024-03-08 13:25:00 66 mm[Hg] [facility] Heart rate 2024-03-08 13:25:00 65 /min [facility] Respiratory rate 2024-03-08 13:25:00 20 /min [facility] Oxygen saturation in Arterial blood by Pulse oximetry 2024-03-08 13:25:00 94 /min [facility] Body temperature 2024-03-08 13:07:[address] [facility] Body height 2024-03-03 21:15:00 165.1 cm [facility] Body weight 2024-03-03 21:15:00 80.287 kg [facility] BMI 2024-03-03 21:15:00 29.45 kg/m2 [facility] Systolic blood pressure 2024-03-08 13:25:00 134 mm[Hg] [facility] Diastolic blood pressure 2024-03-08 13:25:00 66 mm[Hg] [facility] Heart rate 2024-03-08 13:25:00 65 /min [facility] Respiratory rate 2024-03-08 13:25:00 20 /min [facility] Oxygen saturation in Arterial blood by Pulse oximetry 2024-03-08 13:25:00 94 /min [facility] Body temperature 2024-03-08 13:07:00 36.72 [facility] Body height 2024-03-03 21:15:00 165.1 cm [facility] Body weight 2024-03-03 21:15:00 80.287 kg [facility] BMI 2024-03-03 21:15:00 29.45 kg/m2 [facility] height 2024-03-04 10:20:00 65 [in_i] Commo n [facility] weight 2024-03-04 10:20:00 175 [lb_av] Comm on [facility] temperature 2024-03-04 10:20:00 97.6 [degF] Com mon [facility] bmi 2024-03-04 10:20:00 29.12 kg/m2 Comm on [facility] oximetry 2024-03-04 10:20:00 96 % Commo n [facility] respiratory rate 2024-03-04 10:20:00 18 /min [facility] blood pressure systolic 2024-03-04 10:20:00 128 mm[Hg] [facility] blood pressure diastolic 2024-03-04 10:20:00 70 mm[Hg] [facility] Respiratory rate 2024-02-09 13:35:00 16 /min [facility] Heart rate 2024-02-09 13:34:00 73 /min [facility] Oxygen saturation in Arterial blood by Pulse oximetry 2024-02-09 13:34:00 97 /min [facility] Systolic blood pressure 2024-02-09 13:33:00 136 mm[Hg] [facility] Diastolic blood pressure 2024-02-09 13:33:00 79 mm[Hg] [facility] Body temperature 2024-02-09 13:08:[address] [facility] Body height 2024-02-09 12:50:00 165.1 cm [facility] Body weight 2024-02-09 12:50:00 80.7 kg [facility] BMI 2024-02-09 12:50:00 29.61 kg/m2 [facility] Heart rate 2024-02-09 13:31:00 80 /min [facility] Respiratory rate 2024-02-09 13:31:00 17 /min [facility] Oxygen saturation in Arterial blood by Pulse oximetry 2024-02-09 13:31:00 97 /min [facility] Systolic blood pressure 2024-02-09 13:28:00 129 mm[Hg] [facility] Diastolic blood pressure 2024-02-09 13:28:00 76 mm[Hg] [facility] Body temperature 2024-02-09 13:08:[address] [facility] Body height 2024-02-09 12:50:00 165.1 cm [facility] Body weight 2024-02-09 12:50:00 80.7 kg [facility] BMI 2024-02-09 12:50:00 29.61 kg/m2 [facility] height 2024-02-09 15:30:00 65 [in_i] Commo n [facility] weight 2024-02-09 15:30:00 179.8 [lb_av] Co on [facility] temperature 2024-02-09 15:30:00 97.8 [degF] Com [facility] bmi 2024-02-09 15:30:00 29.92 kg/m2 Comm on [facility] oximetry 2024-02-09 15:30:00 96 % Commo n [facility] respiratory rate 2024-02-09 15:30:00 16 /min [facility] blood pressure systolic 2024-02-09 15:30:00 138 mm[Hg] Common [facility] blood pressure diastolic 2024-02-09 15:30:00 87 mm[Hg] [facility] height 2024-02-05 08:00:00 65 [in_i] Commo n [facility] weight 2024-02-05 08:00:00 179.8 [lb_av] Co on [facility] temperature 2024-02-05 08:00:00 97.8 [degF] Com [facility] bmi 2024-02-05 08:00:00 29.92 kg/m2 Comm on [facility] oximetry 2024-02-05 08:00:00 95 % Commo n [facility] respiratory rate 2024-02-05 08:00:00 16 /min Common [facility] blood pressure systolic 2024-02-05 08:00:00 140 mm[Hg] [facility] blood pressure diastolic 2024-02-05 08:00:00 80 mm[Hg] [facility] Systolic blood pressure 2023-12-01 13:35:00 146 mm[Hg] [facility] Diastolic blood pressure 2023-12-01 13:35:00 67 mm[Hg] [facility] Heart rate 2023-12-01 13:35:00 63 /min [facility] Respiratory rate 2023-12-01 13:35:00 19 /min [facility] Oxygen saturation in Arterial blood by Pulse oximetry 2023-12-01 13:35:00 97 /min [facility] Body temperature 2023-12-01 13:05:00 36.28 [facility] Body weight 2023-11-27 18:00:00 81.647 kg [facility] BMI 2023-11-27 18:00:00 29.95 kg/m2 [facility] Systolic blood pressure 2023-12-01 13:30:00 132 mm[Hg] [facility] Diastolic blood pressure 2023-12-01 13:30:00 66 mm[Hg] [facility] Heart rate 2023-12-01 13:30:00 61 /min [facility] Respiratory rate 2023-12-01 13:30:00 19 /min [facility] Oxygen saturation in Arterial blood by Pulse oximetry 2023-12-01 13:30:00 96 /min [facility] Body temperature 2023-12-01 13:05:00 36.28 [facility] Body weight 2023-11-27 18:00:00 81.647 kg [facility] BMI 2023-11-27 18:00:00 29.95 kg/m2 [facility] height 2023-11-26 14:10:00 65 [in_i] Commo n [facility] weight 2023-11-26 14:10:00 178.0 [lb_av] Co mmon [facility] temperature 2023-11-26 14:10:00 97.9 [degF] Com mon [facility] bmi 2023-11-26 14:10:00 29.62 kg/m2 Comm on [facility] oximetry 2023-11-26 14:10:00 96 % Commo n [facility] respiratory rate 2023-11-26 14:10:00 17 /min [facility] blood pressure systolic 2023-11-26 14:10:00 130 mm[Hg] [facility] blood pressure diastolic 2023-11-26 14:10:00 73 mm[Hg] [facility] height 2023-11-26 14:10:00 65 [in_i] Commo n [facility] weight 2023-11-26 14:10:00 178.0 [lb_av] Co mmon [facility] temperature 2023-11-26 14:10:00 97.9 [degF] Com mon [facility] bmi 2023-11-26 14:10:00 29.62 kg/m2 Comm on [facility] oximetry 2023-11-26 14:10:00 96 % Commo n [facility] respiratory rate 2023-11-26 14:10:00 17 /min [facility] blood pressure systolic 2023-11-26 14:10:00 130 mm[Hg] [facility] blood pressure diastolic 2023-11-26 14:10:00 73 mm[Hg] [facility] height 2023-11-07 10:40:00 65 [in_i] Commo n [facility] weight 2023-11-07 10:40:00 171.4 [lb_av] Co mmon [facility] bmi 2023-11-07 10:40:00 28.52 kg/m2 Comm on [facility] Systolic blood pressure 2023-10-20 14:35:00 125 mm[Hg] [facility] Diastolic blood pressure 2023-10-20 14:35:00 71 mm[Hg] [facility] Heart rate 2023-10-20 14:35:00 64 /min [facility] Body temperature 2023-10-20 14:35:00 36.33 [facility] Respiratory rate 2023-10-20 14:35:00 21 /min [facility] Oxygen saturation in Arterial blood by Pulse oximetry 2023-10-20 14:35:00 95 /min [facility] Body height 2023-10-13 16:00:00 165.1 cm [facility] Body weight 2023-10-13 16:00:00 78.926 kg [facility] BMI 2023-10-13 16:00:00 28.96 kg/m2 [facility] Systolic blood pressure 2023-10-20 14:10:00 127 mm[Hg] [facility] Diastolic blood pressure 2023-10-20 14:10:00 79 mm[Hg] [facility] Heart rate 2023-10-20 14:10:00 63 /min [facility] Respiratory rate 2023-10-20 14:10:00 17 /min [facility] Oxygen saturation in Arterial blood by Pulse oximetry 2023-10-20 14:10:00 94 /min [facility] Body temperature 2023-10-20 14:04:00 36.33 [facility] Body height 2023-10-13 16:00:00 165.1 cm [facility] Body weight 2023-10-13 16:00:00 78.926 kg [facility] BMI 2023-10-13 16:00:00 28.96 kg/m2 [facility] Systolic blood pressure 2023-09-22 13:13:00 138 mm[Hg] [facility] Diastolic blood pressure 2023-09-22 13:13:00 66 mm[Hg] [facility] Heart rate 2023-09-22 13:13:00 60 /min [facility] Respiratory rate 2023-09-22 13:13:00 20 /min [facility] Oxygen saturation in Arterial blood by Pulse oximetry 2023-09-22 13:13:00 97 /min [facility] Body temperature 2023-09-22 12:43:[address] [facility] Body height 2023-09-16 19:00:00 165.1 cm [facility] Body weight 2023-09-16 19:00:00 78.926 kg [facility] BMI 2023-09-16 19:00:00 28.96 kg/m2 [facility] Heart rate 2023-09-22 12:48:00 65 /min [facility] Respiratory rate 2023-09-22 12:48:00 19 /min [facility] Oxygen saturation in Arterial blood by Pulse oximetry 2023-09-22 12:48:00 95 /min [facility] Systolic blood pressure 2023-09-22 12:47:00 131 mm[Hg] [facility] Diastolic blood pressure 2023-09-22 12:47:00 63 mm[Hg] [facility] Body temperature 2023-09-22 12:43:[address] [facility] Body height 2023-09-16 19:00:00 165.1 cm [facility] Body weight 2023-09-16 19:00:00 78.926 kg [facility] BMI 2023-09-16 19:00:00 28.96 kg/m2 [facility] height 2023-07-30 15:20:00 65 [in_i] Commo n [facility] weight 2023-07-30 15:20:00 171.4 [lb_av] Co mmon [facility] temperature 2023-07-30 15:20:00 97.3 [degF] Com mon [facility] bmi 2023-07-30 15:20:00 28.52 kg/m2 Comm on [facility] oximetry 2023-07-30 15:20:00 99 % Commo n [facility] blood pressure systolic 2023-07-30 15:20:00 126 mm[Hg] Common [facility] blood pressure diastolic 2023-07-30 15:20:00 78 mm[Hg] [facility] Heart rate 2023-07-21 14:31:00 63 /[facility] Respiratory rate 2023-07-21 14:31:00 23 /min [facility] Oxygen saturation in Arterial blood by Pulse oximetry 2023-07-21 14:31:00 94 /min [facility] Systolic blood pressure 2023-07-21 14:30:00 122 mm[Hg] [facility] Diastolic blood pressure 2023-07-21 14:30:00 67 mm[Hg] [facility] Body temperature 2023-07-21 14:00:[address] [facility] Body height 2023-07-16 15:00:00 165.1 cm [facility] Body weight 2023-07-16 15:00:00 79.379 kg [facility] BMI 2023-07-16 15:00:00 29.12 kg/m2 [facility] Heart rate 2023-07-21 14:31:00 63 /min [facility] Respiratory rate 2023-07-21 14:31:00 23 /min [facility] Oxygen saturation in Arterial blood by Pulse oximetry 2023-07-21 14:31:00 94 /min [facility] Systolic blood pressure 2023-07-21 14:30:00 122 mm[Hg] [facility] Diastolic blood pressure 2023-07-21 14:30:00 67 mm[Hg] [facility] Body temperature 2023-07-21 14:00:[address] [facility] Body height 2023-07-16 15:00:00 165.1 cm [facility] Body weight 2023-07-16 15:00:00 79.379 kg [facility] BMI 2023-07-16 15:00:00 29.12 kg/m2 [facility] height 2023-04-29 15:00:00 65 [in_i] Commo n [facility] weight 2023-04-29 15:00:00 176.8 [lb_av] Co mmon [facility] temperature 2023-04-29 15:00:00 97.8 [degF] Com mon [facility] bmi 2023-04-29 15:00:00 29.42 kg/m2 Comm on [facility] oximetry 2023-04-29 15:00:00 98 % Commo n [facility] respiratory rate 2023-04-29 15:00:00 16 /min [facility] blood pressure systolic 2023-04-29 15:00:00 122 mm[Hg] Common [facility] blood pressure diastolic 2023-04-29 15:00:00 66 mm[Hg] [facility] Systolic blood pressure 2023-02-21 17:59:00 113 mm[Hg] [facility] Diastolic blood pressure 2023-02-21 17:59:00 74 mm[Hg] [facility] Heart rate 2023-02-21 17:59:00 64 /min [facility] Respiratory rate 2023-02-21 17:59:00 18 /min [facility] Body height 2023-02-21 17:59:00 165.1 cm [facility] Body weight 2023-02-21 17:59:00 81.647 kg [facility] BMI 2023-02-21 17:59:00 29.95 kg/m2 [facility] height 2023-01-27 14:30:00 65 [in_i] Commo n [facility] weight 2023-01-27 14:30:00 182.6 [lb_av] Co mmon [facility] temperature 2023-01-27 14:30:00 97.2 [degF] Com mon [facility] bmi 2023-01-27 14:30:00 30.38 kg/m2 Comm on [facility] oximetry 2023-01-27 14:30:00 97 % Commo n [facility] respiratory rate 2023-01-27 14:30:00 17 /min Common [facility] blood pressure systolic 2023-01-27 14:30:00 119 mm[Hg] [facility] blood pressure diastolic 2023-01-27 14:30:00 67 mm[Hg] [facility] height 2023-01-08 14:00:00 65 [in_i] Commo n [facility] weight 2023-01-08 14:00:00 182.8 [lb_av] Co mmon [facility] temperature 2023-01-08 14:00:00 98.1 [degF] Com mon [facility] bmi 2023-01-08 14:00:00 30.42 kg/m2 Comm on [facility] oximetry 2023-01-08 14:00:00 98 % Commo n [facility] respiratory rate 2023-01-08 14:00:00 17 /min [facility] blood pressure systolic 2023-01-08 14:00:00 132 mm[Hg] [facility] blood pressure diastolic 2023-01-08 14:00:00 71 mm[Hg] [facility] Systolic blood pressure 2022-12-30 15:13:00 103 mm[Hg] [facility] Diastolic blood pressure 2022-12-30 15:13:00 63 mm[Hg] [facility] Body temperature 2022-12-30 15:13:[address] [facility] Respiratory rate 2022-12-30 15:13:00 19 /min [facility] Oxygen saturation in Arterial blood by Pulse oximetry 2022-12-30 15:13:00 97 /min [facility] Heart rate 2022-12-30 15:01:00 64 /[facility] 2022-12-17 19:17:00 165.1 cm [facility] Body weight 2022-12-17 19:17:00 83.9 kg [facility] BMI 2022-12-17 19:17:00 30.78 kg/m2 [facility] Systolic blood pressure 2022-12-30 15:13:00 103 mm[Hg] [facility] Diastolic blood pressure 2022-12-30 15:13:00 63 mm[Hg] [facility] Body temperature 2022-12-30 15:13:[address] [facility] Respiratory rate 2022-12-30 15:13:00 19 /min [facility] Oxygen saturation in Arterial blood by Pulse oximetry 2022-12-30 15:13:00 97 /min [facility] Heart rate 2022-12-30 15:01:00 64 /min [facility] Body height 2022-12-17 19:17:00 165.1 cm [facility] Body weight 2022-12-17 19:17:00 83.9 kg [facility] BMI 2022-12-17 19:17:00 30.78 kg/m2 [facility] height 2022-12-16 15:30:00 65 [in_i] Commo n [facility] weight 2022-12-16 15:30:00 183 [lb_av] Comm on [facility] temperature 2022-12-16 15:30:00 98 [degF] Comm on [facility] bmi 2022-12-16 15:30:00 30.45 kg/m2 Comm on [facility] oximetry 2022-12-16 15:30:00 97 % Commo n [facility] respiratory rate 2022-12-16 15:30:00 18 /min Common [facility] blood pressure systolic 2022-12-16 15:30:00 134 mm[Hg] Common [facility] blood pressure diastolic 2022-12-16 15:30:00 66 mm[Hg] Common [facility] height 2022-11-06 14:20:00 65 [in_i] Commo n [facility] weight 2022-11-06 14:20:00 181.4 [lb_av] Co mmon [facility] temperature 2022-11-06 14:20:00 97.3 [degF] Com mon [facility] bmi 2022-11-06 14:20:00 30.18 kg/m2 Comm on [facility] oximetry 2022-11-06 14:20:00 98 % Commo n [facility] respiratory rate 2022-11-06 14:20:00 18 /min Common [facility] blood pressure systolic 2022-11-06 14:20:00 130 mm[Hg] [facility] blood pressure diastolic 2022-11-06 14:20:00 71 mm[Hg] [facility] Systolic blood pressure 2022-10-28 13:55:00 115 mm[Hg] [facility] Diastolic blood pressure 2022-10-28 13:55:00 60 mm[Hg] [facility] Heart rate 2022-10-28 13:55:00 59 /[facility] Respiratory rate 2022-10-28 13:55:00 19 /min [facility] Oxygen saturation in Arterial blood by Pulse oximetry 2022-10-28 13:55:00 97 /min [facility] Body temperature 2022-10-28 12:15:[address] [facility] Body height 2022-10-22 15:00:00 165.1 cm [facility] Body weight 2022-10-22 15:00:00 83.915 kg [facility] BMI 2022-10-22 15:00:00 30.79 kg/m2 [facility] Systolic blood pressure 2022-10-28 13:45:00 117 mm[Hg] [facility] Diastolic blood pressure 2022-10-28 13:45:00 68 mm[Hg] [facility] Heart rate 2022-10-28 13:45:00 60 /min [facility] Respiratory rate 2022-10-28 13:45:00 19 /min [facility] Oxygen saturation in Arterial blood by Pulse oximetry 2022-10-28 13:45:00 96 /min [facility] Body temperature 2022-10-28 12:15:[address] [facility] Body height 2022-10-22 15:00:00 165.1 cm [facility] Body weight 2022-10-22 15:00:00 83.915 kg [facility] BMI 2022-10-22 15:00:00 30.79 kg/m2 [facility] height 2022-10-11 14:00:00 65 [in_i] Commo n [facility] weight 2022-10-11 14:00:00 182.6 [lb_av] Co on [facility] temperature 2022-10-11 14:00:00 97.3 [degF] Com [facility] bmi 2022-10-11 14:00:00 30.38 kg/m2 Comm on [facility] oximetry 2022-10-11 14:00:00 97 % Commo n [facility] respiratory rate 2022-10-11 14:00:00 16 /min [facility] blood pressure systolic 2022-10-11 14:00:00 105 mm[Hg] [facility] blood pressure diastolic 2022-10-11 14:00:00 65 mm[Hg] [facility] height 2022-09-17 08:20:00 65 [in_i] [facility] [facility]22-09-17 08:20:00 179.6 [lb_av] Co mmon [facility] temperature 2022-09-17 08:20:00 97.2 [degF] Com [facility] bmi 2022-09-17 08:20:00 29.88 kg/m2 Comm on [facility] oximetry 2022-09-17 08:20:00 98 % Commo n [facility] respiratory rate 2022-09-17 08:20:00 16 /min [facility] blood pressure systolic 2022-09-17 08:20:00 129 mm[Hg] [facility] blood pressure diastolic 2022-09-17 08:20:00 68 mm[Hg] [facility] height 2022-09-10 08:00:00 65 [in_i] Commo n [facility] weight 2022-09-10 08:00:00 183.2 [lb_av] Co mmon [facility] temperature 2022-09-10 08:00:00 97.5 [degF] Com mon [facility] bmi 2022-09-10 08:00:00 30.48 kg/m2 Comm on [facility] oximetry 2022-09-10 08:00:00 97 % Commo n [facility] respiratory rate 2022-09-10 08:00:00 17 /min [facility] blood pressure systolic 2022-09-10 08:00:00 125 mm[Hg] [facility] blood pressure diastolic 2022-09-10 08:00:00 71 mm[Hg] [facility] Heart rate 2022-08-19 14:20:00 68 /min [facility] Respiratory rate 2022-08-19 14:20:00 30 /min [facility] Oxygen saturation in Arterial blood by Pulse oximetry 2022-08-19 14:20:00 95 /min [facility] Systolic blood pressure 2022-08-19 14:19:00 117 mm[Hg] [facility] Diastolic blood pressure 2022-08-19 14:19:00 64 mm[Hg] [facility] Body temperature 2022-08-19 13:51:[address] [facility] Body height 2022-08-19 12:49:00 165.1 cm [facility] Body weight 2022-08-19 12:49:00 82.6 kg [facility] BMI 2022-08-19 12:49:00 30.30 kg/m2 [facility] Heart rate 2022-08-19 12:57:00 64 /min [facility] Body temperature 2022-08-19 12:57:[address] [facility] Respiratory rate 2022-08-19 12:57:00 18 /min [facility] Oxygen saturation in Arterial blood by Pulse oximetry 2022-08-19 12:57:00 99 /min [facility] Systolic blood pressure 2022-08-19 12:56:00 129 mm[Hg] [facility] Diastolic blood pressure 2022-08-19 12:56:00 62 mm[Hg] [facility] Body height 2022-08-19 12:49:00 165.1 cm [facility] Body weight 2022-08-19 12:49:00 82.6 kg [facility] BMI 2022-08-19 12:49:00 30.30 kg/m2 [facility] height 2022-08-08 15:20:00 65 [in_i] Commo n [facility] weight 2022-08-08 15:20:00 182.8 [lb_av] Co mmon [facility] temperature 2022-08-08 15:20:00 96.7 [degF] Com mon [facility] bmi 2022-08-08 15:20:00 30.42 kg/m2 Comm on [facility] oximetry 2022-08-08 15:20:00 97 % Commo n [facility] respiratory rate 2022-08-08 15:20:00 17 /min Common [facility] blood pressure systolic 2022-08-08 15:20:00 128 mm[Hg] [facility] blood pressure diastolic 2022-08-08 15:20:00 73 mm[Hg] Common [facility] height 2022-08-08 15:30:00 65 [in_i] Commo n [facility] weight 2022-08-08 15:30:00 182.8 [lb_av] Co mmon [facility] temperature 2022-08-08 15:30:00 96.7 [degF] Com mon [facility] bmi 2022-08-08 15:30:00 30.42 kg/m2 Comm on [facility] oximetry 2022-08-08 15:30:00 97 % Commo n [facility] respiratory rate 2022-08-08 15:30:00 17 /min Common [facility] blood pressure systolic 2022-08-08 15:30:00 128 mm[Hg] [facility] blood pressure diastolic 2022-08-08 15:30:00 73 mm[Hg] [facility] Systolic blood pressure 2022-07-17 19:15:00 126 mm[Hg] [facility] Diastolic blood pressure 2022-07-17 19:15:00 77 mm[Hg] [facility] Heart rate 2022-07-17 19:15:00 67 /min [facility] Body temperature 2022-07-17 19:15:[address] [facility] Respiratory rate 2022-07-17 19:15:00 18 /min [facility] Body height 2022-07-17 19:15:00 165.1 cm [facility] Body weight 2022-07-17 19:15:00 83.008 kg [facility] BMI 2022-07-17 19:15:00 30.45 kg/m2 [facility] height 2022-07-01 11:20:00 65 [in_i] Commo n [facility] weight 2022-07-01 11:20:00 178 [lb_av] Comm on [facility] bmi 2022-07-01 11:20:00 29.62 kg/m2 Comm on [facility] height 2022-06-05 10:00:00 65 [in_i] Commo n [facility] weight 2022-06-05 10:00:00 185.2 [lb_av] Co mmon [facility] temperature 2022-06-05 10:00:00 97.9 [degF] Com mon [facility] bmi 2022-06-05 10:00:00 30.82 kg/m2 Comm on [facility] oximetry 2022-06-05 10:00:00 97 % Commo n [facility] respiratory rate 2022-06-05 10:00:00 18 /min Common [facility] blood pressure systolic 2022-06-05 10:00:00 122 mm[Hg] Common [facility] blood pressure diastolic 2022-06-05 10:00:00 67 mm[Hg] Common [facility] height 2022-04-29 14:50:00 65 [in_i] Commo n [facility] weight 2022-04-29 14:50:00 183.2 [lb_av] Co [facility] temperature 2022-04-29 14:50:00 96.5 [degF] Com mon [facility] bmi 2022-04-29 14:50:00 30.48 kg/m2 Comm on [facility] oximetry 2022-04-29 14:50:00 97 % Commo n [facility] respiratory rate 2022-04-29 14:50:00 17 /min Common [facility] blood pressure systolic 2022-04-29 14:50:00 127 mm[Hg] Common [facility] blood pressure diastolic 2022-04-29 14:50:00 67 mm[Hg] Common [facility] height 2022-03-27 14:00:00 65 [in_i] Commo n [facility] weight 2022-03-27 14:00:00 180.6 [facility]22-[facility]-27 14:00:00 97.7 [degF] Com [facility] bmi 2022-03-27 14:00:00 30.05 kg/m2 Comm on [facility] oximetry 2022-03-27 14:00:00 97 % Commo n [facility] respiratory rate 2022-03-27 14:00:00 17 /min [facility] blood pressure systolic 2022-03-27 14:00:00 132 mm[Hg] [facility] blood pressure diastolic 2022-03-27 14:00:00 69 mm[Hg] [facility] height 2022-02-12 14:00:00 65 [in_i] Commo n [facility] weight 2022-02-12 14:00:00 180.4 [lb_av] Co [facility] temperature 2022-02-12 14:00:00 97.3 [degF] Com [facility] bmi 2022-02-12 14:00:00 30.02 kg/m2 Comm on [facility] oximetry 2022-02-12 14:00:00 97 % Commo n [facility] respiratory rate 2022-02-12 14:00:00 17 /min [facility] blood pressure systolic 2022-02-12 14:00:00 138 mm[Hg] [facility] blood pressure diastolic 2022-02-12 14:00:00 67 mm[Hg] [facility] Heart rate 2022-02-04 14:03:00 63 /min [facility] Respiratory rate 2022-02-04 14:03:00 16 /min [facility] Oxygen saturation in Arterial blood by Pulse oximetry 2022-02-04 14:03:00 97 /min [facility] Systolic blood pressure 2022-02-04 13:54:00 114 mm[Hg] [facility] Diastolic blood pressure 2022-02-04 13:54:00 61 mm[Hg] [facility] Body temperature 2022-02-04 13:38:[address] [facility] Body height 2022-02-04 12:07:00 165.1 cm [facility] Body weight 2022-02-01 17:00:00 82.555 kg [facility] BMI 2022-02-01 17:00:00 30.29 kg/m2 [facility] Systolic blood pressure 2022-02-04 13:48:00 112 mm[Hg] [facility] Diastolic blood pressure 2022-02-04 13:48:00 60 mm[Hg] [facility] Heart rate 2022-02-04 13:48:00 57 /min [facility] Respiratory rate 2022-02-04 13:48:00 16 /min [facility] Oxygen saturation in Arterial blood by Pulse oximetry 2022-02-04 13:48:00 99 /min [facility] Body temperature 2022-02-04 13:38:00 36.83 [facility] Body height 2022-02-04 12:07:00 165.1 cm [facility] Body weight 2022-02-01 17:00:00 82.555 kg [facility] BMI 2022-02-01 17:00:00 30.29 kg/m2 [facility] height 2022-01-28 15:40:00 65 [in_i] Commo n [facility] weight 2022-01-28 15:40:00 181.5 [lb_av] Co mmon [facility] temperature 2022-01-28 15:40:00 97.2 [degF] Com mon [facility] bmi 2022-01-28 15:40:00 30.2 kg/m2 Commo n [facility] oximetry 2022-01-28 15:40:00 98 % Commo n [facility] respiratory rate 2022-01-28 15:40:00 17 /min Common [facility] blood pressure systolic 2022-01-28 15:40:00 125 mm[Hg] [facility] blood pressure diastolic 2022-01-28 15:40:00 72 mm[Hg] [facility] Heart rate 2022-01-21 12:57:00 65 /min [facility] Respiratory rate 2022-01-21 12:57:00 29 /min [facility] Oxygen saturation in Arterial blood by Pulse oximetry 2022-01-21 12:57:00 98 /min [facility] Systolic blood pressure 2022-01-21 12:55:00 105 mm[Hg] [facility] Diastolic blood pressure 2022-01-21 12:55:00 74 mm[Hg] [facility] Body temperature 2022-01-21 12:36:[address] [facility] Body height 2022-01-21 11:30:00 165.1 cm [facility] Body weight 2022-01-16 15:00:00 83.008 kg [facility] BMI 2022-01-16 15:00:00 30.45 kg/m2 [facility] Systolic blood pressure 2022-01-21 12:45:00 110 mm[Hg] [facility] Diastolic blood pressure 2022-01-21 12:45:00 65 mm[Hg] [facility] Heart rate 2022-01-21 12:45:00 64 /min [facility] Respiratory rate 2022-01-21 12:45:00 29 /min [facility] Oxygen saturation in Arterial blood by Pulse oximetry 2022-01-21 12:45:00 97 /min [facility] Body temperature 2022-01-21 12:36:[address] [facility] Body height 2022-01-21 11:30:00 165.1 cm [facility] Body weight 2022-01-16 15:00:00 83.008 kg [facility] BMI 2022-01-16 15:00:00 30.45 kg/m2 [facility] height 2022-01-17 13:40:00 65 [in_i] Commo n [facility] weight 2022-01-17 13:40:00 186.1 [lb_av] Co mmon [facility] temperature 2022-01-17 13:40:00 97.4 [degF] Com mon [facility] bmi 2022-01-17 13:40:00 30.97 kg/m2 Comm on [facility] oximetry 2022-01-17 13:40:00 96 % Commo n [facility] respiratory rate 2022-01-17 13:40:00 17 /min Common [facility] blood pressure systolic 2022-01-17 13:40:00 125 mm[Hg] [facility] blood pressure diastolic 2022-01-17 13:40:00 64 mm[Hg] [facility] Systolic blood pressure 2022-01-07 13:50:00 118 mm[Hg] [facility] Diastolic blood pressure 2022-01-07 13:50:00 67 mm[Hg] [facility] Heart rate 2022-01-07 13:50:00 70 /min [facility] Respiratory rate 2022-01-07 13:50:00 17 /min [facility] Oxygen saturation in Arterial blood by Pulse oximetry 2022-01-07 13:50:00 99 /min [facility] Body temperature 2022-01-07 13:30:[address] [facility] Body height 2021-12-31 13:37:00 165.1 cm [facility] Body weight 2021-12-31 13:37:00 83.3 kg [facility] BMI 2021-12-31 13:37:00 30.56 kg/m2 [facility] Systolic blood pressure 2022-01-07 13:45:00 103 mm[Hg] [facility] Diastolic blood pressure 2022-01-07 13:45:00 57 mm[Hg] [facility] Heart rate 2022-01-07 13:45:00 64 [facility] Respiratory rate 2022-01-07 13:45:00 17 /min [facility] Oxygen saturation in Arterial blood by Pulse oximetry 2022-01-07 13:45:00 97 /min [place] [facility] Body temperature 2022-01-07 13:30:[address] [facility] Body height 2021-12-31 13:37:00 165.1 cm [facility] Body weight 2021-12-31 13:37:00 83.3 kg [facility] BMI 2021-12-31 13:37:00 30.56 kg/m2 [facility] height 2022-01-03 10:00:00 65 [in_i] Commo n [facility] weight 2022-01-03 10:00:00 185 [lb_av] Comm on [facility] temperature 2022-01-03 10:00:00 98 [degF] Comm on [facility] bmi 2022-01-03 10:00:00 30.78 kg/m2 Comm on [facility] height 2021-12-10 10:40:00 65 [in_i] Commo n [facility] weight 2021-12-10 10:40:00 186.0 [lb_av] Co mmon [facility] temperature 2021-12-10 10:40:00 98.1 [degF] Com mon [facility] bmi 2021-12-10 10:40:00 30.95 kg/m2 Comm on [facility] oximetry 2021-12-10 10:40:00 87 % Commo n [facility] respiratory rate 2021-12-10 10:40:00 17 /min Common [facility] blood pressure systolic 2021-12-10 10:40:00 127 mm[Hg] Common [facility] blood pressure diastolic 2021-12-10 10:40:00 65 mm[Hg] Common [facility] height 2021-11-22 09:40:00 65 [in_i] Commo n [facility] weight 2021-11-22 09:40:00 185.1 [lb_av] Co mmon [facility] temperature 2021-11-22 09:40:00 97.7 [degF] Com [facility] bmi 2021-11-22 09:40:00 30.8 kg/m2 Commo n [facility] oximetry 2021-11-22 09:40:00 96 % Commo n [facility] respiratory rate 2021-11-22 09:40:00 17 /min Common [facility] blood pressure systolic 2021-11-22 09:40:00 126 mm[Hg] [facility] blood pressure diastolic 2021-11-22 09:40:00 70 mm[Hg] Common [facility] height 2021-10-30 14:30:00 65 [in_i] Commo n [facility] weight 2021-10-30 14:30:00 191.1 [lb_av] Co on [facility] temperature 2021-10-30 14:30:00 98.1 [degF] Com [facility] bmi 2021-10-30 14:30:00 31.8 kg/m2 Commo n [facility] oximetry 2021-10-30 14:30:00 96 % Commo n [facility] respiratory rate 2021-10-30 14:30:00 17 /min Common [facility] blood pressure systolic 2021-10-30 14:30:00 127 mm[Hg] Common [facility] blood pressure diastolic 2021-10-30 14:30:00 60 mm[Hg] Common [facility] height 2021-10-17 14:15:00 65 [in_i] Commo n [facility] weight 2021-10-17 14:15:00 185 [lb_av] Comm on [facility] temperature 2021-10-17 14:15:00 98.4 [degF] Com mon [facility] bmi 2021-10-17 14:15:00 30.78 kg/m2 Comm on [facility] oximetry 2021-10-17 14:15:00 96 % Commo n [facility] respiratory rate 2021-10-17 14:15:00 16 /min Common [facility] blood pressure systolic 2021-10-17 14:15:00 137 mm[Hg] [facility] blood pressure diastolic 2021-10-17 14:15:00 67 mm[Hg] Common [facility] height 2021-10-17 14:15:00 65 [in_i] Commo n [facility] weight 2021-10-17 14:15:00 185 [lb_av] Comm on [facility] temperature 2021-10-17 14:15:00 98.4 [degF] Com [facility] bmi 2021-10-17 14:15:00 30.78 kg/m2 Comm on [facility] oximetry 2021-10-17 14:15:00 96 % Commo n [facility] respiratory rate 2021-10-17 14:15:00 16 /min [facility] blood pressure systolic 2021-10-17 14:15:00 137 mm[Hg] Common [facility] blood pressure diastolic 2021-10-17 14:15:00 67 mm[Hg] Common [facility] height 2021-09-19 10:15:00 65 [in_i] Commo n [facility] weight 2021-09-19 10:15:00 186.6 [lb_av] Co mmon [facility] temperature 2021-09-19 10:15:00 97.3 [degF] Com [facility] bmi 2021-09-19 10:15:00 31.05 kg/m2 Comm on [facility] oximetry 2021-09-19 10:15:00 92 % Commo n [facility] respiratory rate 2021-09-19 10:15:00 16 /min [facility] blood pressure systolic 2021-09-19 10:15:00 136 mm[Hg] Common [facility] blood pressure diastolic 2021-09-19 10:15:00 72 mm[Hg] Common [facility] height 2021-09-19 10:15:00 65 [in_i] Commo n [facility] weight 2021-09-19 10:15:00 186.6 [lb_av] Co [facility] temperature 2021-09-19 10:15:00 97.3 [degF] Com mon [facility] bmi 2021-09-19 10:15:00 31.05 kg/m2 Comm on [facility] oximetry 2021-09-19 10:15:00 92 % Commo n [facility] respiratory rate 2021-09-19 10:15:00 16 /min [facility] blood pressure systolic 2021-09-19 10:15:00 136 mm[Hg] Common [facility] blood pressure diastolic 2021-09-19 10:15:00 72 mm[Hg] Common [facility] height 2021-08-27 16:00:00 65 [in_i] Commo n [facility] weight 2021-08-27 16:00:00 183.4 [lb_av] Co [facility] bmi 2021-08-27 16:00:00 30.52 kg/m2 Comm on [facility] height 2021-08-09 17:00:00 65 [in_i] Commo n [facility] weight 2021-08-09 17:00:00 183.4 [lb_av] Co [facility] temperature 2021-08-09 17:00:00 98.6 [degF] Com mon [facility] bmi 2021-08-09 17:00:00 30.52 kg/m2 Comm on [facility] oximetry 2021-08-09 17:00:00 100 % Commo n [facility] respiratory rate 2021-08-09 17:00:00 18 /min Common [facility] blood pressure systolic 2021-08-09 17:00:00 130 mm[Hg] [facility] blood pressure diastolic 2021-08-09 17:00:00 62 mm[Hg] Common [facility] height 2021-08-09 17:00:00 65 [in_i] Commo n [facility] weight 2021-08-09 17:00:00 183.4 [lb_av] Co mmon [facility] temperature 2021-08-09 17:00:00 98.6 [degF] Com mon [facility] bmi 2021-08-09 17:00:00 30.52 kg/m2 Comm on [facility] oximetry 2021-08-09 17:00:00 100 % Commo n [facility] respiratory rate 2021-08-09 17:00:00 18 /min [facility] blood pressure systolic 2021-08-09 17:00:00 130 mm[Hg] [facility] blood pressure diastolic 2021-08-09 17:00:00 62 mm[Hg] Common [facility] Systolic blood pressure 2021-07-24 20:23:00 130 mm[Hg] [facility] Diastolic blood pressure 2021-07-24 20:23:00 80 mm[Hg] [facility] Heart rate 2021-07-24 20:23:00 67 /min [facility] Body temperature 2021-07-24 20:23:[address] [facility] Body height 2021-07-24 20:23:00 165.1 cm [facility] Body weight 2021-07-24 20:23:00 83.326 kg [facility] BMI 2021-07-24 20:23:00 30.57 kg/m2 [facility] height 2021-06-27 13:30:00 65 [in_i] Commo n [facility] weight 2021-06-27 13:30:00 180 [lb_av] Comm on [facility] temperature 2021-06-27 13:30:00 98 [degF] Comm on [facility] bmi 2021-06-27 13:30:00 29.95 kg/m2 Comm on [facility] height 2021-05-24 11:20:00 65 [in_i] Commo n [facility] weight 2021-05-24 11:20:00 178 [lb_av] Comm on [facility] temperature 2021-05-24 11:20:00 98 [degF] Comm on [facility] bmi 2021-05-24 11:20:00 29.62 kg/m2 Comm on [facility] blood pressure systolic 2021-05-24 11:20:00 135 mm[Hg] [facility] blood pressure diastolic 2021-05-24 11:20:00 86 mm[Hg] Common [facility] height 2021-04-23 13:40:00 65 [in_i] Commo n [facility] weight 2021-04-23 13:40:00 178 [lb_av] Comm on [facility] temperature 2021-04-23 13:40:00 97.7 [degF] Com mon [facility] bmi 2021-04-23 13:40:00 29.62 kg/m2 Comm on [facility] oximetry 2021-04-23 13:40:00 97 % Commo n [facility] respiratory rate 2021-04-23 13:40:00 18 /min Common [facility] blood pressure systolic 2021-04-23 13:40:00 130 mm[Hg] Common [facility] blood pressure diastolic 2021-04-23 13:40:00 72 mm[Hg] [facility] height 2021-03-23 09:30:00 65 [in_i] Commo n [facility] weight 2021-03-23 09:30:00 178 [lb_av] Comm on [facility] bmi 2021-03-23 09:30:00 29.62 kg/m2 Comm on [facility] height 2021-02-22 15:20:00 65 [in_i] Commo n [facility] weight 2021-02-22 15:20:00 178 [lb_av] Comm on [facility] temperature 2021-02-22 15:20:00 98 [degF] Comm on [facility] bmi 2021-02-22 15:20:00 29.62 kg/m2 Comm on [facility] blood pressure systolic 2021-02-22 15:20:00 134 mm[Hg] [facility] blood pressure diastolic 2021-02-22 15:20:00 75 mm[Hg] Common [facility] height 2021-02-15 09:00:00 65 [in_i] Commo n [facility] weight 2021-02-15 09:00:00 178 [lb_av] Comm on [facility] temperature 2021-02-15 09:00:00 97.5 [degF] Com mon [facility] bmi 2021-02-15 09:00:00 29.62 kg/m2 Comm on [facility] height 2021-01-25 09:40:00 65 [in_i] Commo n [facility] weight 2021-01-25 09:40:00 178 [lb_av] Comm on [facility] temperature 2021-01-25 09:40:00 98 [degF] Comm on [facility] bmi 2021-01-25 09:40:00 29.62 kg/m2 Comm on [facility] blood pressure systolic 2021-01-25 09:40:00 132 mm[Hg] [facility] blood pressure diastolic 2021-01-25 09:40:00 76 mm[Hg] Common [facility] height 2020-12-26 13:20:00 65 [in_i] Commo n [facility] weight 2020-12-26 13:20:00 182.5 [lb_av] Co mmon [facility] temperature 2020-12-26 13:20:00 98.5 [degF] Com [facility] bmi 2020-12-26 13:20:00 30.37 kg/m2 Comm on [facility] oximetry 2020-12-26 13:20:00 96 % Commo n [facility] blood pressure systolic 2020-12-26 13:20:00 140 mm[Hg] [facility] blood pressure diastolic 2020-12-26 13:20:00 65 mm[Hg] [facility] height 2020-12-26 13:20:00 65 [in_i] Commo n [facility] weight 2020-12-26 13:20:00 182.5 [lb_av] Co mmon [facility] temperature 2020-12-26 13:20:00 98.5 [degF] Com [facility] bmi 2020-12-26 13:20:00 30.37 kg/m2 Comm on [facility] oximetry 2020-12-26 13:20:00 96 % Commo n [facility] blood pressure systolic 2020-12-26 13:20:00 140 mm[Hg] [facility] blood pressure diastolic 2020-12-26 13:20:00 65 mm[Hg] Common [facility] height 2020-12-21 13:40:00 65 [in_i] Commo n [facility] weight 2020-12-21 13:40:00 182.5 [lb_av] Co [facility] temperature 2020-12-21 13:40:00 97.1 [degF] Com [facility] bmi 2020-12-21 13:40:00 30.37 kg/m2 Comm on [facility] oximetry 2020-12-21 13:40:00 97 % Commo n [facility] respiratory rate 2020-12-21 13:40:00 17 /min [facility] blood pressure systolic 2020-12-21 13:40:00 122 mm[Hg] [facility] blood pressure diastolic 2020-12-21 13:40:00 66 mm[Hg] [facility] height 2020-12-05 10:00:00 65 [in_i] Commo n [facility] weight 2020-12-05 10:00:00 182.5 [lb_av] Co [facility] temperature 2020-12-05 10:00:00 97.4 [degF] Com [facility] bmi 2020-12-05 10:00:00 30.37 kg/m2 Comm on [facility] height 2020-10-26 16:00:00 65 [in_i] Commo n [facility] weight 2020-10-26 16:00:00 182.5 [lb_av] Co [facility] temperature 2020-10-26 16:00:00 97.2 [degF] Com [facility] bmi 2020-10-26 16:00:00 30.37 kg/m2 Comm on [facility] oximetry 2020-10-26 16:00:00 95 % Commo n [facility] respiratory rate 2020-10-26 16:00:00 17 /min Common [facility] blood pressure systolic 2020-10-26 16:00:00 125 mm[Hg] Common [facility] blood pressure diastolic 2020-10-26 16:00:00 63 mm[Hg] [facility] height 2020-05-16 15:00:00 65 [in_i] Commo n [facility] weight 2020-05-16 15:00:00 195.7 [lb_av] Co mmon [facility] temperature 2020-05-16 15:00:00 97.2 [degF] Com [facility] bmi 2020-05-16 15:00:00 32.56 kg/m2 Comm on [facility] oximetry 2020-05-16 15:00:00 100 % Commo n [facility] respiratory rate 2020-05-16 15:00:00 17 /min Common [facility] blood pressure systolic 2020-05-16 15:00:00 128 mm[Hg] [facility] blood pressure diastolic 2020-05-16 15:00:00 60 mm[Hg] [facility] height 2020-04-27 15:20:00 65 [in_i] Commo n [facility] weight 2020-04-27 15:20:00 190.0 [lb_av] Co mmon [facility] temperature 2020-04-27 15:20:00 97.0 [degF] Com [facility] bmi 2020-04-27 15:20:00 31.61 kg/m2 Comm on [facility] oximetry 2020-04-27 15:20:00 97 % Commo n [facility] respiratory rate 2020-04-27 15:20:00 16 /min Common [facility] blood pressure systolic 2020-04-27 15:20:00 135 mm[Hg] [facility] blood pressure diastolic 2020-04-27 15:20:00 73 mm[Hg] Common [facility] height 2020-04-13 14:40:00 65 [in_i] Commo n [facility] weight 2020-04-13 14:40:00 193.6 [lb_av] Co mmon [facility] temperature 2020-04-13 14:40:00 96.9 [degF] Com mon [facility] bmi 2020-04-13 14:40:00 32.21 kg/m2 Comm on [facility] oximetry 2020-04-13 14:40:00 97 % Commo n [facility] respiratory rate 2020-04-13 14:40:00 16 /min [facility] blood pressure systolic 2020-04-13 14:40:00 135 mm[Hg] Common [facility] blood pressure diastolic 2020-04-13 14:40:00 65 mm[Hg] [facility] height 2020-04-13 14:40:00 65 [in_i] Commo n [facility] weight 2020-04-13 14:40:00 193.6 [lb_av] [facility] 2020-04-13 14:40:00 96.9 [degF] Com [facility] bmi 2020-04-13 14:40:00 32.21 kg/m2 Comm on [facility] oximetry 2020-04-13 14:40:00 97 % Commo n [facility] respiratory rate 2020-04-13 14:40:00 16 /min Common [facility] blood pressure systolic 2020-04-13 14:40:00 135 mm[Hg] Common [facility] blood pressure diastolic 2020-04-13 14:40:00 65 mm[Hg] Common [facility] height 2020-03-30 10:45:00 65 [in_i] Commo n [facility] weight 2020-03-30 10:45:00 191.2 [lb_av] Co mmon [facility] temperature 2020-03-30 10:45:00 97 [degF] Comm on [facility] bmi 2020-03-30 10:45:00 31.81 kg/m2 Comm on [facility] oximetry 2020-03-30 10:45:00 99 % Commo n [facility] respiratory rate 2020-03-30 10:45:00 18 /min Common [facility] blood pressure systolic 2020-03-30 10:45:00 145 mm[Hg] Common [facility] blood pressure diastolic 2020-03-30 10:45:00 71 mm[Hg] Common [facility] height 2020-03-28 14:20:00 65 [in_i] Commo n [facility] weight 2020-03-28 14:20:00 192.5 [lb_av] Co mmon [facility] temperature 2020-03-28 14:20:00 97.0 [degF] Com mon [facility] bmi 2020-03-28 14:20:00 32.03 kg/m2 Comm on [facility] oximetry 2020-03-28 14:20:00 98 % Commo n [facility] respiratory rate 2020-03-28 14:20:00 16 /min Common [facility] blood pressure systolic 2020-03-28 14:20:00 133 mm[Hg] Common [facility] blood pressure diastolic 2020-03-28 14:20:00 67 mm[Hg] [facility] height 2020-03-16 16:30:00 65 [in_i] Commo n [facility] weight 2020-03-16 16:30:00 192.7 [lb_av] Co mmon [facility] temperature 2020-03-16 16:30:00 97.2 [degF] Com mon [facility] bmi 2020-03-16 16:30:00 32.06 kg/m2 Comm on [facility] oximetry 2020-03-16 16:30:00 100 % Commo n [facility] respiratory rate 2020-03-16 16:30:00 17 /min Common [facility] blood pressure systolic 2020-03-16 16:30:00 137 mm[Hg] Common [facility] blood pressure diastolic 2020-03-16 16:30:00 70 mm[Hg] Common [facility] height 2020-02-18 14:30:00 65 [in_i] Commo n [facility] weight 2020-02-18 14:30:00 194.7 [lb_av] Co mmon [facility] temperature 2020-02-18 14:30:00 97.8 [degF] Com mon [facility] bmi 2020-02-18 14:30:00 32.4 kg/m2 Commo n [facility] oximetry 2020-02-18 14:30:00 96 % Commo n [facility] blood pressure systolic 2020-02-18 14:30:00 147 mm[Hg] Common [facility] blood pressure diastolic 2020-02-18 14:30:00 69 mm[Hg] [facility] height 2019-08-27 14:30:00 65 [in_i] Commo n [facility] weight 2019-08-27 14:30:00 192.7 [lb_av] Co mmon [facility] temperature 2019-08-27 14:30:00 97.8 [degF] Com [facility] bmi 2019-08-27 14:30:00 32.06 kg/m2 Comm on [facility] oximetry 2019-08-27 14:30:00 96 % Commo n [facility] blood pressure systolic 2019-08-27 14:30:00 148 mm[Hg] Common [facility] blood pressure diastolic 2019-08-27 14:30:00 72 mm[Hg] Common [facility] height 2019-03-04 11:00:00 65 [in_i] Commo n [facility] weight 2019-03-04 11:00:00 189.0 [lb_av] Co mmon [facility] temperature 2019-03-04 11:00:00 97.4 [degF] Com [facility] bmi 2019-03-04 11:00:00 31.45 kg/m2 Comm on [facility] oximetry 2019-03-04 11:00:00 96 % Commo n [facility] blood pressure systolic 2019-03-04 11:00:00 157 mm[Hg] [facility] blood pressure diastolic 2019-03-04 11:00:00 62 mm[Hg] Common [facility] height 2019-02-08 13:00:00 65 [in_i] Commo n [facility] weight 2019-02-08 13:00:00 183.5 [lb_av] Co mmon [facility] temperature 2019-02-08 13:00:00 98.1 [degF] Com [facility] bmi 2019-02-08 13:00:00 30.53 kg/m2 Comm on [facility] oximetry 2019-02-08 13:00:00 98 % Commo n [facility] blood pressure systolic 2019-02-08 13:00:00 154 mm[Hg] Common [facility] blood pressure diastolic 2019-02-08 13:00:00 88 mm[Hg] [facility] height 2019-01-27 10:00:00 65 [in_i] Commo n [facility] weight 2019-01-27 10:00:00 185.8 [lb_av] Co mmon [facility] temperature 2019-01-27 10:00:00 97.8 [degF] Com [facility] bmi 2019-01-27 10:00:00 30.92 kg/m2 Comm on [facility] oximetry 2019-01-27 10:00:00 98 % Commo n [facility] respiratory rate 2019-01-27 10:00:00 17 /min Common [facility] blood pressure systolic 2019-01-27 10:00:00 140 mm[Hg] Common [facility] blood pressure diastolic 2019-01-27 10:00:00 78 mm[Hg] [facility] BP Systolic 2024-06-03 15:55:00 134 mm[Hg] Step hen F Ronnell BP Diastolic 2024-06-03 15:55:00 77 mm[Hg] Bobby phen F Ronnell Weight Measured 2024-06-03 15:55:00 172.60 pounds Rock F Ronnell Height Measured 2024-06-03 15:55:00 64.00 inches Rock F Ronnell Body Temperature 2024-06-03 15:55:00 98.30 degrees Rock F Ronnell Heart Rate 2024-06-03 15:55:00 76.00 /min Joaquina en F Ronnell Respiratory Rate 2024-06-03 15:55:00 Rock F Ronnell BP Systolic 2024-05-31 14:06:00 135 mm[Hg] Step hen F Ronnell BP Diastolic 2024-05-31 14:06:00 79 mm[Hg] Bobby phen F Ronnell Weight Measured 2024-05-31 14:06:00 172.60 pounds Rock F Ronnell Height Measured 2024-05-31 14:06:00 64.00 inches Rock F Ronnell Body Temperature 2024-05-31 14:06:00 97.60 degrees Rock F Ronnell Heart Rate 2024-05-31 14:06:00 81.00 /min Joaquina en F Ronnell Respiratory Rate 2024-05-31 14:06:00 17.00 /min Rock F Ronnell BP Systolic 2024-05-24 14:16:00 138 mm[Hg] Step hen F Ronnell BP Diastolic 2024-05-24 14:16:00 76 mm[Hg] Bobby phen F Ronnell Weight Measured 2024-05-24 14:16:00 173.60 pounds Rock F Ronnell Height Measured 2024-05-24 14:16:00 64.00 inches Rock F Ronnell Body Temperature 2024-05-24 14:16:00 98.20 degrees Rock F Ronnell Heart Rate 2024-05-24 14:16:00 75.00 /min Joaquina en F Ronnell Respiratory Rate 2024-05-24 14:16:00 17.00 /min Rock F Ronnell BP Systolic 2024-01-28 08:23:00 142 mm[Hg] Step [...] Temperature 2023-10-09 09:48:00 98.20 degrees Rock F Rnonell Heart Rate 2023-10-09 09:48:00 68.00 /min Joaquina [...] Ronnell Body Temperature 2017-03-12 10:56:00 98.20 degrees Rcok F Ronnell Heart Rate 2017-03-12 10:56:00 72.00 [...] Performing Clinician Source [place] TIME OR (NON-REPORTABLE) 2024-03-08 13:05:00 Tyler Chang [facility] [id number] - [place] NJX DX/THER SBST INTRLMNR CRV/THRC W/IMG GDN 2024-03-08 12:50:00 [facility] 2024-03-08 12:29:00 Bernardo [facility] POCT GLUCOSE (AUTOMATED) 2024-03-08 12:29:00 [facility] [place] [facility] (NON-REPORTABLE) 2024-02-09 13:05:00 Tyler Chang [facility] [place] TIME OR (NON-REPORTABLE) 2024-02-09 13:05:[address] [facility] [id number] - [place] DX/THER SBST INTRLMNR CRV/THRC W/IMG GDN 2024-02-09 12:49:[address] [facility] POCT GLUCOSE (AUTOMATED) 2024-02-09 12:32:00 Bernardo [facility] POCT GLUCOSE (AUTOMATED) 2024-02-09 12:32:00 Tyler Chang [facility] [place] TIME OR (NON-REPORTABLE) 2023-12-01 13:05:[address] [facility] [place] TIME OR (NON-REPORTABLE) 2023-12-01 13:05:[address] [facility] [id number] - [place] DX/THER SBST INTRLMNR CRV/THRC W/IMG GDN 2023-12-01 12:45:00 Tyler Chang [facility] POCT GLUCOSE (AUTOMATED) 2023-12-01 12:27:00 Bernardo [facility] POCT GLUCOSE (AUTOMATED) 2023-12-01 12:27:00 Tyler Chang [facility] [place] TIME OR (NON-REPORTABLE) 2023-10-20 14:05:00 Tyler Chang [facility] [place] TIME OR (NON-REPORTABLE) 2023-10-20 14:05:[address] [facility] BLOCK EPIDURAL 2023-10-20 13:47:00 [facility] 2023-10-20 13:07:00 [facility] ([facility]) 2023-10-20 13:07:[address] [facility] [place] TIME OR (NON-REPORTABLE) 2023-09-22 12:43:[address] [facility] [place] TIME OR (NON-REPORTABLE) 2023-09-22 12:43:[address] [facility] BLOCK EPIDURAL 2023-09-22 12:19:00 Tyler Chang [facility] POCT GLUCOSE (AUTOMATED) 2023-09-22 11:41:00 Tyler Chang [facility] POCT GLUCOSE (AUTOMATED) 2023-09-22 11:41:[address] [facility] [place] TIME OR (NON-REPORTABLE) 2023-07-21 14:05:[address] [facility] BLOCK EPIDURAL 2023-07-21 13:39:[address] [facility] POCT GLUCOSE (AUTOMATED) 2023-07-21 13:37:[address] [facility] POCT GLUCOSE (AUTOMATED) 2023-07-21 13:37:[address] [facility] PATIENT QUESTIONNAIRE 2023-07-21 06:01:00 Doctor Unassigned, [place] [facility] DAY SURGERY - [facility] 2023-07-21 06:01:00 Doctor Lupe ssigned, [place] [facility] CBC WITH DIFF 2023-07-14 16:56:00 Tyler Chang [facility] EXTERNAL PROVIDER RECORDS 2023-07-02 06:01:00 Do ctor Unassigned, [place] [facility] EXTERNAL PROVIDER RECORDS 2023-07-02 06:01:00 Do ctor Unassigned, [place] [facility] ASSIGNMENT OF BENEFITS 2023-02-21 17:34:16 Docto r Unassigned, [place] [facility] POCT URINALYSIS W/O SPECIFIC GRAVITY 2023-02-21 00:00:[address] [facility] [place] TIME OR (NON-REPORTABLE) 2022-12-30 15:28:[address] [facility] [place] TIME OR (NON-REPORTABLE) 2022-12-30 15:28:[address] [facility] BLOCK EPIDURAL 2022-12-30 14:23:[address] [facility] BLOCK EPIDURAL 2022-12-30 14:23:[address] [facility] PATIENT QUESTIONNAIRE 2022-12-30 05:01:00 Doctor Unassigned, [place] [facility]ERY - [facility] 2022-12-30 05:01:00 Doctor Lupe ssigned, [place] [facility] PATIENT QUESTIONNAIRE 2022-12-30 05:01:00 Doctor Unassigned, [place] [facility]ERY - [facility] 2022-12-30 05:01:00 Doctor Lupe ssigned, [place] [facility] EXTERNAL PROVIDER RECORDS 2022-12-17 05:01:00 Do ctor Unassigned, [place] [facility] EXTERNAL PROVIDER RECORDS 2022-12-17 05:01:00 Do ctor Unassigned, [place] [facility] [place] TIME OR (NON-REPORTABLE) 2022-10-28 13:25:[address] [facility] [place] TIME OR (NON-REPORTABLE) 2022-10-28 13:25:[address] [facility] BLOCK EPIDURAL 2022-10-28 13:11:[address] [facility] EXTERNAL PROVIDER RECORDS 2022-10-15 05:01:00 Do ctor Unassigned, [place] [facility] EXTERNAL PROVIDER RECORDS 2022-10-15 05:01:00 Do ctor Unassigned, [place] [facility] FL TIME OR (NON-REPORTABLE) 2022-08-19 13:53:[address] [facility] [place] TIME OR (NON-REPORTABLE) 2022-08-19 13:53:[address] [facility] BLOCK EPIDURAL 2022-08-19 13:25:00 Tyler Chang [facility] SURGERY [facility] 2022-08-19 06:01:00 Doctor Lupe ssigned, [place] [facility] PHYSICIAN ORDERS 2022-08-14 06:01:00 Doctor Unas signed, [place] [facility] ASSIGNMENT OF BENEFITS 2022-08-07 14:52:43 Docto r Unassigned, [place] [facility] [place] TIME OR (NON-REPORTABLE) 2022-02-04 13:33:[address] [facility] BLOCK EPIDURAL 2022-02-04 13:19:00 Tyler Chang [facility] SURGERY [facility] 2022-02-04 05:01:00 Doctor Lupe ssigned, [place] [facility] ASSIGNMENT OF BENEFITS 2022-02-01 13:22:22 Docto r Unassigned, [place] [facility] INSURANCE CORRESPONDENCE 2022-01-22 05:01:00 Doc tor Unassigned, [place] [facility] [place] TIME OR (NON-REPORTABLE) 2022-01-21 13:09:[address] [facility] [place] TIME OR (NON-REPORTABLE) 2022-01-21 13:09:[address] [facility] BLOCK EPIDURAL 2022-01-21 12:20:[address] [facility] POCT GLUCOSE (AUTOMATED) 2022-01-21 11:52:[address] [facility] POCT GLUCOSE (AUTOMATED) 2022-01-21 11:52:[address] [facility] POCT GLUCOSE(AGE >30DAYS) 2022-01-21 11:50:[address] [facility] POCT GLUCOSE(AGE >30DAYS) 2022-01-21 11:50:[address] [facility] DAY SURGERY - [facility] 2022-01-21 05:01:00 Doctor Lupe ssigned, [place] [facility] ASSIGNMENT OF BENEFITS 2022-01-19 13:49:22 Docto r Unassigned, [place] [facility] [place] TIME OR (NON-REPORTABLE) 2022-01-07 14:28:[address] [facility] BLOCK EPIDURAL 2022-01-07 13:11:[address] [facility] PATIENT QUESTIONNAIRE 2022-01-07 05:01:00 Doctor Unassigned, [place] [facility] ASSIGNMENT OF BENEFITS 2022-01-04 15:33:26 Docto r Unassigned, [place] [facility] ASSIGNMENT OF BENEFITS 2021-12-27 15:16:29 Docto r Unassigned, [place] [facility] EXTERNAL PROVIDER RECORDS 2021-12-26 05:01:00 Do ctor Unassigned, [place] [facility] EXTERNAL PROVIDER RECORDS 2021-12-26 05:01:00 Do ctor Unassigned, [place] [facility] PVR 2021-08-09 00:00:00 Common S pirit [facility] [address] Ecg Routine Ecg W/least 12 Lds W/i r 2016-10-23 00:00:00 Rock Reynaga [address] Ecg Routine Ecg W/least 12 Lds W/i r 2016-07-09 00:00:00 Rock Reynaga PVR [facility] PVR [facility] PVR [facility] Plan of Care Planned Activity Planned Date Details Comments Source Goal Plan of Care Note [code = 05927-5] Goal Plan of Care Note [code = 23967-5] Goal Plan of Care Note [code = 36743-3] Goal Plan of Care Note [code = 18245-5] Goal Plan of Care Note [code = 65249-1] Goal Plan of Care Note [code = 06316-4] Goal Plan of Care Note [code = 54294-7] Goal Plan of Care Note [code = 64841-3] Goal Plan of Care Note [code = 33435-6] Goal Plan of Care Note [code = 25210-5] Goal Plan of Care Note [code = 64853-1] Goal Plan of Care Note [code = 61791-3] Goal Plan of Care Note [code = 20891-0] Goal Plan of Care Note [code = 61632-9] Goal Plan of Care Note [code = 99261-6] Goal Plan of Care Note [code = 77086-7] Goal Plan of Care Note [code = 45320-5] Goal Plan of Care Note [code = 38669-7] Goal Plan of Care Note [code = 86795-4] Goal Plan of Care Note [code = 13786-4] Goal Plan of Care Note [code = 44534-4] Goal Plan of Care Note [code = 76787-4] Goal Plan of Care Note [code = 30428-3] Goal Plan of Care Note [code = 58513-9] Goal Plan of Care Note [code = 82700-5] Goal Plan of Care Note [code = 52494-1] Goal Plan of Care Note [code = 53370-3] Goal Plan of Care Note [code = 62725-4] Goal Plan of Care Note [code = 95431-5] Goal Plan of Care Note [code = 84788-9] Goal Plan of Care Note [code = 61105-9] Goal Plan of Care Note [code = 90499-2] Goal Plan of Care Note [code = 29529-2] Goal Plan of Care Note [code = 18295-0] Goal Plan of Care Note [code = 36088-2] Goal Plan of Care Note [code = 08424-0] Goal Plan of Care Note [code = 15604-8] Goal Plan of Care Note [code = 01352-3] Goal Plan of Care Note [code = 16279-2] Goal Plan of Care Note [code = 83761-9] Goal Plan of Care Note [code = 79982-2] Goal Plan of Care Note [code = 49242-4] Goal Plan of Care Note [code = 64869-4] Goal Plan of Care Note [code = 36687-1] Goal Plan of Care Note [code = 11583-6] Goal Plan of Care Note [code = 11157-4] Goal Plan of Care Note [code = 23761-5] Goal Plan of Care Note [code = 04169-7] Goal Plan of Care Note [code = 73867-4] Goal Plan of Care Note [code = 99606-8] Goal Plan of Care Note [code = 76937-4] Goal Plan of Care Note [code = 25987-2] Encounters Start Date/Time End Date/Time Encounter Type Admission Type [facility] Care Department Encounter ID Source 2024-06-02 08:56:00 Outpatient Destinee Gould [facility] [id number] [facility] 2024-03-02 08:51:00 Outpatient [facility] [id number] [facility] 2024-02-09 09:08:00 Outpatient Destinee Gould [facility] [id number] [facility] 2024-02-05 08:19:00 Outpatient Tonio Miller [facility] [id number] [facility] 2024-02-04 15:15:00 Outpatient Miller, Tonio [facility] [id number] [facility] 2024-01-06 08:30:12 Outpatient TYLER SANFORD [facility] [id number] [facility] 2023-12-16 17:22:18 [facility] [id number] [facility] 2023-11-26 14:56:00 Outpatient Miller, Tonio [facility] [id number] [facility] 2023-11-24 14:01:00 Outpatient Miller, Tonio [facility] [id number] [facility] 2023-11-11 14:40:00 Outpatient Miller, Tonio [facility] [id number] [facility] 2023-11-07 10:09:00 Outpatient Miller, Tonio [facility] [id number] [facility] 2023-09-13 10:28:05 [facility] [id number] [facility] 2023-09-01 17:05:00 Outpatient Miller, Tonio [facility] ST[facility] [id number] [facility] 2023-07-28 15:00:00 Outpatient Miller, Tonio [facility] [id number] [facility] 2023-02-12 14:00:00 Outpatient Miller, Tonio [facility] [id number] [facility] - [facility] 2022-11-05 07:41:00 Outpatient Miller, Tonio STLMLC STLMLC [id number] [facility] 2022-09-27 09:47:00 Outpatient Miller, Tonio STLMLC STLMLC [id number] [facility] 2022-09-17 15:13:58 Outpatient TYLER SANFORD [facility] [id number] [facility] 2022-08-29 15:21:37 Outpatient TYLER SANFORD [facility] [id number] [facility] 2022-07-17 12:43:40 Outpatient TYLER SANFORD [facility] [id number] [facility] 2022-06-03 09:39:00 Outpatient Miller, Tonio STLMLC STLMLC [id number] [facility] 2022-04-26 14:39:00 Outpatient Miller, Tonio STLMLC STLMLC [id number] [facility] 2022-04-25 13:11:00 Outpatient Miller, Tonio STLMLC STLMLC [id number] [facility] 2022-01-17 13:47:01 Outpatient Miller, Tonio STLMLC STLMLC [id number] [facility] 2022-01-07 08:42:27 Outpatient [facility] [id number] [facility] 2021-10-30 15:01:00 Outpatient Miller, Tonio STLMLC STLMLC [id number] [facility] 2021-10-04 08:34:01 Outpatient Miller, Tonio STLMLC STLMLC [id number] [facility] 2021-07-18 14:19:22 Outpatient Miller, Tonio STLMLC STLMLC [id number] [facility] 2021-07-18 13:45:16 Outpatient Miller, Tonio STLMLC STLMLC [id number] [facility] 2021-07-18 12:59:49 Outpatient Miller, Tonio STLMLC STLMLC [id number] [facility] 2021-07-18 12:31:12 Outpatient Miller, Tonio STLMLC STLMLC [id number] [facility] 2021-07-18 12:29:23 Outpatient Miller, Tonio STLMLC STLMLC [id number] [facility] 2021-07-18 12:24:50 Outpatient Miller, Tonio STLMLC STLMLC [id number] [facility] 2021-07-18 12:24:31 Outpatient Miller, Tonio STLMLC STLMLC [id number] [facility] 2021-07-18 12:23:16 Outpatient Miller, Tonio STLMLC STLMLC [id number] [facility] 2021-07-18 12:09:35 Outpatient Miller, Tonio STLMLC STLMLC [id number] [facility] 2021-07-18 12:08:47 Outpatient Miller, Tonio STLMLC STLMLC [id number] [facility] 2021-07-18 12:08:21 Outpatient Miller, Tonio STLMLC STLMLC [id number] [facility] 2021-07-18 12:07:39 Outpatient Miller, Tonio STLMLC STLMLC [id number] [facility] 2021-07-18 11:57:35 Outpatient Miller, Tonio STLMLC STLMLC [id number] [facility] 2021-07-18 11:55:10 Outpatient Miller, Tonio STLMLC STLMLC [id number] [facility] 2021-07-18 11:25:38 Outpatient Miller, Tonio STLMLC STLMLC [id number] [facility] 2021-07-18 11:24:24 Outpatient Miller, Tonio STLMLC STLMLC [id number] [facility] 2021-07-18 11:20:51 Outpatient Miller, Tonio STLMLC STLMLC [id number] [facility] 2021-07-18 11:19:05 [facility] [id number] [facility] 2021-07-18 11:17:38 Outpatient Miller, [facility] [id number] [facility] 2021-07-18 11:10:37 Outpatient Miller, [facility] [id number] [facility] 2021-07-18 11:07:32 Outpatient Miller, Tonio STLC STLC [id number] [facility] 2021-07-18 11:07:07 Out[facility] Miller[facility] [id number] [facility] 2021-07-18 11:06:50 Outpatient Miller, [facility] [id number] [facility] 2021-07-18 11:04:55 Outpatient Miller, [facility] [id number] [facility] 2021-07-18 11:00:24 Outpatient Miller, [facility] [id number] [facility] 2021-04-22 14:22:47 [facility] [id number] [facility] 2021-04-22 10:11:45 Outpatient Briseida CHANG [facility]S [id number] [facility] 2021-04-22 10:11:40 [facility] [id number] [facility] 2021-04-20 17:34:36 [facility] [id number] [facility] 2021-04-20 14:46:00 Outpatient Briseida CHANG [facility] KIERAN [id number] [facility] 2021-04-20 13:57:14 [facility] [id number] [facility] 2021-04-20 01:30:11 Outpatient R [facility] [id number] [facility] 2021-04-20 01:30:04 Out[facility] [id number] [facility] 2021-04-20 01:29:58 Outpatient [facility] [id number] [facility] 2021-04-19 16:47:45 Emergency [facility] [id number] [facility] 2021-04-19 16:35:06 [facility] [id number] [facility] 2021-04-19 15:34:38 [facility] [id number] [facility] 2021-04-19 15:15:49 Emergency [facility] [id number] [facility] 2021-04-19 12:34:04 Outpatient [facility] [id number] [facility] 2021-04-19 11:32:12 Outpatient Briseida CHANG [facility] KIERAN [id number] [facility] 2024-06-03 15:49:41 2024-06-03 15:49:41 Outpatient SFA SFA [id number] [facility] 2024-06-03 00:00:00 2024-06-03 00:00:00 Outpatient Visit SFA [id number] [facility] 2024-06-02 00:00:00 2024-06-02 00:00:00 OFFICE VISIT ESTAB PT LEVEL 4 STLMLC STLMLC [id number] [facility] 2024-06-01 15:08:47 2024-06-01 15:08:47 Outpatient SFA SFA [id number] [facility] 2024-05-31 13:58:18 2024-05-31 13:58:18 Outpatient SFA [facility] [id number] [facility] 2024-05-31 00:00:00 2024-05-31 00:00:00 Outpatient Visit SFA [id number] [facility] 2024-05-25 13:49:22 2024-05-25 13:49:22 Outpatient SFA [facility] [id number] [facility] Reynaga 2024-05-24 14:10:27 2024-05-24 14:10:27 Outpatient SFA [facility] [id number] [facility] Reynaga 2024-05-24 00:00:00 2024-05-24 00:00:00 Outpatient Visit SFA [id number] [facility] 2024-05-10 15:45:00 2024-05-10 15:45:00 Outpatient ROBERT JIMENEZ [facility] [id number] [facility] 2024-05-05 00:00:00 2024-05-05 00:00:00 (TEL) STLMLC STLMLC [id number] [facility] 2024-05-04 00:00:00 2024-05-04 00:00:00 (TEL) STLMLC STLMLC [id number] [facility] 2024-04-27 00:00:00 2024-04-27 00:00:00 OFFICE VISIT ESTAB PT LEVEL 4 STLMLC STLMLC [id number] [facility] 2024-04-19 00:00:00 2024-04-19 00:00:00 (TEL) STLMLC STLMLC [id number] [facility] 2024-04-05 16:30:00 2024-04-05 16:30:00 Outpatient ROBERT JIMENEZ [facility] [id number] [facility] 2024-04-01 00:00:00 2024-04-01 00:00:00 OFFICE VISIT ESTAB PT LEVEL 4 STLMLC STLMLC [id number] [facility] 2024-03-22 00:00:00 2024-03-22 00:00:00 OFFICE VISIT ESTAB PT LEVEL 3 STLMLC STLMLC [id number] [facility] 2024-03-22 00:00:00 2024-03-22 00:00:00 (TEL) STLMLC STLMLC [id number] [facility] 2024-03-15 00:00:00 2024-03-15 00:00:00 (TEL) STLMLC STLMLC [id number] [facility] 2024-03-08 07:13:00 2024-03-08 08:33:00 [facility] [id number] [facility] 2024-03-08 07:13:00 2024-03-08 08:33:00 Hospital Encounter [facility] 1.2.840.114 350.1.13.10 4.2.7.2.686 [id number] [facility] 2024-03-08 08:08:00 2024-03-08 08:30:00 Surgery [facility] 1.2.840.114 350.1.13.10 4.2.7.2.686 [id number] [facility] 2024-03-04 00:00:00 2024-03-04 00:00:00 OFFICE VISIT ESTAB PT LEVEL 5 STLMLC STLMLC [id number] [facility] 2024-03-04 00:00:00 2024-03-04 00:00:00 (TEL) STLMLC STLMLC [id number] [facility] 2024-03-04 00:00:00 2024-03-04 00:00:00 (TEL) STLMLC STLMLC [id number] [facility] 2024-02-26 00:00:00 2024-02-26 00:00:00 (TEL) STLMLC STLMLC [id number] [facility] 2024-02-10 00:00:00 2024-02-10 00:00:00 (TEL) STLMLC STLMLC [id number] [facility] 2024-02-09 07:29:00 2024-02-09 08:38:00 Outpatient R BERNARDO [facility]S [id number] [facility] 2024-02-09 07:29:00 2024-02-09 08:38:00 [facility] 1.2.840.114 350.1.13.10 4.2.7.2.686 [id number] [facility] 2024-02-09 08:09:00 2024-02-09 08:31:00 [facility] 1.2.840.114 350.1.13.10 4.2.7.2.686 [id number] [facility] 2024-02-09 00:00:00 2024-02-09 00:00:00 (TEL) STLMLC STLMLC [id number] [facility] 2024-02-09 00:00:00 2024-02-09 00:00:00 OFFICE VISIT ESTAB PT LEVEL 4 STLMLC STLMLC [id number] [facility] 2024-02-05 00:00:00 2024-02-05 00:00:00 OFFICE VISIT NEW PT LEVEL 4 STLMLC STLMLC [id number] [facility] 2024-02-04 00:00:00 2024-02-04 00:00:00 (TEL) STLMLC STLMLC [id number] [facility] 2024-01-28 08:15:40 2024-01-28 08:15:40 Outpatient SFA SFA [id number] [facility] 2024-01-28 00:00:00 2024-01-28 00:00:00 Outpatient Visit SFA [id number] [facility] 2024-01-27 00:00:00 2024-01-27 00:00:00 ([place]) Nurse Visit STLC STLC [id number] [facility] 2023-12-24 00:00:00 2023-12-24 10:42:27 Telephone Robert Verma [facility] 1.2.840.114 350.1.13.10 4.2.7.2.686 [id number] [facility] 2023-12-23 00:00:00 2023-12-23 00:00:00 ([place]) [facility] [id number] [facility] 2023-12-01 07:09:00 2023-12-01 08:44:00 Outpatient R BERNARDO TYL[facility] ANS [id number] [facility] 2023-12-01 07:09:00 2023-12-01 08:44:00 Hospital Encounter [facility] 1.2.840.114 350.1.13.10 4.2.7.2.686 [id number] [facility] 2023-12-01 08:08:00 2023-12-01 08:30:00 Surgery Bernardo, [facility] 1.2.840.114 350.1.13.10 4.2.7.2.686 [id number] [facility] 2023-11-26 08:30:00 2023-11-26 08:45:00 Food Consultant Visit Pob, 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 1.2.840.114 350.1.13.10 4.2.7.2.686 [id number] [facility] 2023-11-26 08:30:00 2023-11-26 08:30:00 Outpatient TYLER SANFORD [facility] [id number] [facility] 2023-11-26 00:00:00 2023-11-26 00:00:00 OFFICE VISIT ESTAB PT LEVEL 4 STLMLC STLMLC [id number] [facility] 2023-11-26 00:00:00 2023-11-26 00:00:00 INIT ANNUAL [facility] VISIT STLMLC STLMLC [id number] [facility] 2023-11-26 00:00:00 2023-11-26 00:00:00 (TEL) STLMLC STLMLC [id number] [facility] 2023-11-25 00:00:00 2023-11-25 00:00:00 (TEL) STLMLC STLMLC [id number] [facility] 2023-11-11 00:00:00 2023-11-11 00:00:00 (TEL) STLMLC STLMLC [id number] [facility] 2023-11-11 00:00:00 2023-11-11 00:00:00 OFFICE VISIT ESTAB PT LEVEL 1 STLMLC STLMLC [id number] [facility] 2023-11-07 00:00:00 2023-11-07 00:00:00 (TEL) STLMLC STLMLC [id number] [facility] 2023-11-07 00:00:00 2023-11-07 00:00:00 OFFICE VISIT ESTAB PT LEVEL 3 STLMLC STLMLC [id number] [facility] 2023-10-20 07:49:00 2023-10-20 09:45:00 [facility] [id number] [facility] 2023-10-20 07:49:00 2023-10-20 09:45:00 Hospital Encounter Tyler Chang [facility] [place] 1.2.840.114 350.1.13.10 4.2.7.2.686 [id number] [facility] 2023-10-20 08:50:00 2023-10-20 09:12:00 Surgery Tyler Chang [facility] 1.2.840.114 350.1.13.10 4.2.7.2.686 [id number] [facility] 2023-10-09 09:48:06 2023-10-09 09:48:06 Outpatient SFA [facility] [id number] [facility] 2023-10-09 00:00:00 2023-10-09 00:00:00 Outpatient Visit [facility] [id number] [facility] 2023-10-02 11:28:23 2023-10-02 11:28:23 Outpatient SFA [facility] [id number] [facility] 2023-09-22 06:24:00 2023-09-22 08:23:00 Outpatient O TYLER CHANG [facility]S [id number] [facility] 2023-09-22 06:24:00 2023-09-22 08:23:00 Hospital Encounter Tyler Chang [facility] [place] 1.2.840.114 350.1.13.10 4.2.7.2.686 [id number] [facility] 2023-09-22 07:25:00 2023-09-22 07:48:00 Surgery Tyler Chang [facility] [place] 1.2.840.114 350.1.13.10 4.2.7.2.686 [id number] [facility] 2023-08-27 00:00:00 2023-08-27 00:00:00 (TEL) STLMLC STLMLC [id number] [facility] 2023-08-18 13:29:43 2023-08-18 13:29:43 Outpatient [facility] [id number] [facility] Reynaga 2023-07-30 00:00:00 2023-07-30 00:00:00 OFFICE VISIT ESTAB PT LEVEL 4 STLMLC STLMLC [id number] [facility] 2023-07-21 07:24:00 2023-07-21 08:39:00 Outpatient TYLER SANFORD [facility] [id number] [facility] 2023-07-21 07:24:00 2023-07-21 08:39:00 Hospital Encounter [facility] 1.2.840.114 350.1.13.10 4.2.7.2.686 [id number] [facility] 2023-07-21 08:11:00 2023-07-21 08:34:00 Surgery [facility] 1.2.840.114 350.1.13.10 4.2.7.2.686 [id number] [facility] 2023-07-14 11:15:00 2023-07-14 11:30:00 Food Consultant Visit Pob, 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 [facility] 1.2.840.114 350.1.13.10 4.2.7.2.686 [id number] [facility] 2023-07-14 11:15:00 2023-07-14 11:15:00 Outpatient Briseida TYLER CHANG [facility] [id number] [facility] 2023-06-28 12:27:31 2023-06-28 12:27:31 Outpatient [facility] [id number] [facility] Reyn[facility] 2023-06-27 00:00:00 2023-06-27 00:00:00 (TEL) STLMLC STLMLC [id number] [facility] 2023-05-23 13:30:00 2023-05-23 13:30:00 Outpatient R TONIE MILLER [facility] [id number] [facility] 2023-05-20 00:00:00 2023-05-20 00:00:00 (TEL) STLMLC STLMLC [id number] [facility] 2023-04-29 00:00:00 2023-04-29 00:00:00 OFFICE VISIT ESTAB PT LEVEL 4 STLMLC STLMLC [id number] [facility] 2023-04-14 00:00:00 2023-04-14 00:00:00 (TEL) STLMLC STLMLC [id number] [facility] 2023-03-05 10:30:00 2023-03-05 10:30:00 Outpatient R RACHELLE BOWMAN CHERYAL [facility] [id number] [facility] 2023-03-04 00:00:00 2023-03-04 00:00:00 (TEL) STLMLC STLMLC [id number] [facility] 2023-02-28 10:00:00 2023-02-28 10:00:00 Outpatient R [facility] [id number] [facility] 2023-02-21 13:00:00 2023-02-21 13:20:28 Outpatient R TONIE MILLER [facility] [id number] [facility] 2023-02-21 13:00:00 2023-02-21 13:20:28 Office Visit Tonie Miller [facility] 1.2.840.114 350.1.13.10 4.2.7.2.686 [id number] [facility] 2023-02-21 00:00:00 2023-02-21 00:00:00 Orders Only Doctor Unassigned, [place] [facility] 1..840.114 350.1.13.10 4.2.7.2.686 [id number] [facility] 2023-02-20 00:00:00 2023-02-20 00:00:00 (TEL) STLMLC STLMLC [id number] [facility] 2023-02-18 00:00:00 2023-02-18 00:00:00 (TEL) STLMLC STLMLC [id number] [facility] 2023-02-13 00:00:00 2023-02-13 00:00:00 (TEL) STLMLC STLMLC [id number] [facility] 2023-01-27 00:00:00 2023-01-27 00:00:00 OFFICE VISIT ESTAB PT LEVEL 4 STLMLC STLMLC [id number] [facility] 2023-01-09 00:00:00 2023-01-09 00:00:00 (TEL) STLMLC STLMLC [id number] [facility] 2023-01-08 00:00:00 2023-01-08 00:00:00 OFFICE VISIT ESTAB PT LEVEL 2 STLMLC STLMLC [id number] [facility] 2023-01-06 13:50:58 2023-01-06 13:50:58 Outpatient SFA PERFECTO [id number] [facility] 2023-01-06 10:00:00 2023-01-06 10:00:00 Outpatient RACHELLE GLEASON CHERYAL [facility] [id number] [facility] 2022-12-30 10:12:00 2022-12-30 10:35:00 Surgery Tyler Chang [facility] 1..840.114 350.1.13.10 4.2.7.2.686 [id number] [facility] 2022-12-30 08:57:00 2022-12-30 10:30:00 Outpatient R TYLER CHANG [facility] [id number] [facility] 2022-12-30 08:57:00 2022-12-30 10:30:00 Hospital Encounter Tyler Chang [facility] 1.2.840.114 350.1.13.10 4.2.7.2.686 [id number] [facility] 2022-12-16 14:30:00 2022-12-16 14:30:00 Outpatient RACHELLE GLEASON CHERYAL [facility] [id number] [facility] 2022-12-16 00:00:00 2022-12-16 00:00:00 (TEL) STLMLC STLMLC [id number] [facility] 2022-12-16 00:00:00 2022-12-16 00:00:00 OFFICE VISIT ESTAB PT LEVEL 2 STLMLC STLMLC [id number] [facility] 2022-12-09 10:01:45 2022-12-09 10:01:45 Outpatient PERF[place]O [place] [id number] Rock Nela Ronnell 2022-11-25 00:00:00 2022-11-25 00:00:00 Telephone Shante Hickman 1.2.840.114 350.1.13.10 4.2.7.2.686 [id number] [facility] 2022-11-21 10:30:00 2022-11-21 10:30:00 Outpatient FABRICIO BENDER MARISOL [facility] [id number] [facility] 2022-11-06 00:00:00 2022-11-06 00:00:00 OFFICE VISIT ESTAB PT LEVEL 4 STLMLC STLMLC [id number] [facility] 2022-10-28 07:04:00 2022-10-28 09:08:00 Outpatient R TREMAINE CHANGJIT [facility] [id number] [facility] 2022-10-28 07:04:00 2022-10-28 09:08:00 Hospital Encounter Tyler Chang [facility] [place] 1.2.840.114 350.1.13.10 4.2.7.2.686 [id number] [facility] 2022-10-28 08:28:00 2022-10-28 08:50:00 Surgery [facility] [place] 1.2.840.114 350.1.13.10 4.2.7.2.686 [id number] [facility] 2022-10-23 00:00:00 2022-10-23 00:00:00 (TEL) STLMLC STLMLC [id number] [facility] 2022-10-16 00:00:00 2022-10-16 00:00:00 (TEL) STLMLC STLMLC [id number] [facility] 2022-10-14 00:00:00 2022-10-14 00:00:00 (TEL) STLMLC STLMLC [id number] [facility] 2022-10-11 00:00:00 2022-10-11 00:00:00 (TEL) STLMLC STLMLC [id number] [facility] 2022-10-11 00:00:00 2022-10-11 00:00:00 OFFICE VISIT ESTAB PT LEVEL 4 STLMLC STLMLC [id number] [facility] 2022-09-26 00:00:00 2022-09-26 00:00:00 (TEL) STLMLC STLMLC [id number] [facility] 2022-09-20 10:00:00 2022-09-20 10:00:00 Outpatient RACHELLE GLEASON CHERYAL [facility] [id number] [facility] 2022-09-18 00:00:00 2022-09-18 00:00:00 (TEL) STLMLC STLMLC [id number] [facility] 2022-09-17 09:00:00 2022-09-17 09:00:00 Outpatient RACHELLE GLEASON CHERYAL [facility] [id number] [facility] 2022-09-17 00:00:00 2022-09-17 00:00:00 OFFICE VISIT ESTAB PT LEVEL 3 STLMLC STLMLC [id number] [facility] 2022-09-10 00:00:00 2022-09-10 00:00:00 OFFICE VISIT ESTAB PT LEVEL 3 STLMLC STLMLC [id number] [facility] 2022-09-09 00:00:00 2022-09-09 00:00:00 (TEL) STLMLC STLMLC [id number] [facility] 2022-09-02 00:00:00 2022-09-02 00:00:00 Otoniel Chen [facility] PROFESSIO [facility] 1.2.840.114 350.1.13.10 4.2.7.2.686 [id number] [facility] 2022-08-19 06:39:00 2022-08-19 08:33:00 Outpatient R TYLER CHANG [facility] KIERAN [id number] [facility] 2022-08-19 06:39:00 2022-08-19 08:33:00 Hospital Encounter Tyler Chang [facility] [place] 1.2.840.114 350.1.13.10 4.2.7.2.686 [id number] [facility] 2022-08-19 07:25:00 2022-08-19 07:47:00 Surgery Tyler Chang [facility] 1.840.114 350.1.13.10 4.2.7.2.686 [id number] [facility] 2022-08-14 11:15:00 2022-08-14 11:30:00 Food Consultant Visit Pob, 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 Bernardo Tyler [facility] 1..840.114 350.1.13.10 4.2.7.2.686 [id number] [facility] 2022-08-14 11:15:00 2022-08-14 11:15:00 Outpatient R BERNARDO TYLER [facility] [id number] [facility] 2022-08-14 00:00:00 2022-08-14 00:00:00 Orders Only Doctor Unassigned, [place] [facility] 1.840.114 350.1.13.10 4.2.7.2.686 [id number] [facility] 2022-08-08 00:00:00 2022-08-08 00:00:00 [facility] [id number] 2022-08-08 00:00:00 2022-08-08 00:00:00 (TEL) [facility] [id number] [facility] 2022-08-08 00:00:00 2022-08-08 00:00:00 WELCOM[facility]IC[facility] [id number] [facility] 2022-08-07 00:00:00 2022-08-07 00:00:00 Orders Only Doctor Unassigned, [place] [facility] 1.840.114 350.1.13.10 4.2.7.2.686 [id number] [facility] 2022-08-02 00:00:00 2022-08-02 00:00:00 [facility] [facility] 1.2.840.114 350.1.13.10 4.2.7.2.686 [id number] [facility] 2022-07-23 00:00:00 2022-07-23 00:00:00 (INJ) Injection STLMLC STLMLC [id number] [facility] 2022-07-19 00:00:00 2022-07-19 00:00:00 Telephone TriRachelle tucker [facility] 1.2.840.114 350.1.13.10 4.2.7.2.686 [id number] 134 [id number] [facility] 2022-07-17 13:00:00 2022-07-17 13:32:20 [facility] [id number] [facility] 2022-07-17 13:00:00 2022-07-17 13:32:20 [facility] 1.2.840.114 350.1.13.10 4.2.7.2.686 [id number] 134 [id number] [facility] 2022-07-16 00:00:00 2022-07-16 00:00:00 Telephone Trimaikel [facility] 1.2.840.114 350.1.13.10 4.2.7.2.686 [id number] 134 [id number] [facility] 2022-07-14 00:00:00 2022-07-14 00:00:00 Sandra Geiger [facility] 1.2.840.114 350.1.13.10 4.2.7.2.686 [id number] 134 [id number] [facility] 2022-07-01 00:00:00 2022-07-01 00:00:00 (TEL) STLMLC STLMLC [id number] [facility] 2022-07-01 00:00:00 2022-07-01 00:00:00 OFFICE VISIT EST PT LEVEL 3 STLMLC STLMLC [id number] [facility] 2022-06-18 00:00:00 2022-06-18 00:00:00 (TEL) STLMLC STLMLC [id number] [facility] 2022-06-05 00:00:00 2022-06-05 00:00:00 OFFICE VISIT ESTAB PT LEVEL 4 STLMLC STLMLC [id number] [facility] 2022-05-13 00:00:00 2022-05-13 00:00:00 (TEL) STLMLC STLMLC [id number] [facility] 2022-05-08 00:00:00 2022-05-08 00:00:00 (TEL) STLMLC STLMLC [id number] [facility] 2022-04-29 00:00:00 2022-04-29 00:00:00 OFFICE VISIT ESTAB PT LEVEL 4 STLMLC STLMLC [id number] [facility] 2022-04-17 14:12:29 2022-04-17 14:12:29 Outpatient SFA SFA [address] 2022-04-17 00:00:00 2022-04-17 00:00:00 (TEL) STLMLC STLMLC [id number] [facility] 2022-04-17 00:00:00 2022-04-17 00:00:00 Outpatient Visit [id number] 2022-04-10 14:47:35 2022-04-10 14:47:35 Outpatient SFA SFA [id number] [address] Nela Ronnell 2022-04-10 00:00:00 2022-04-10 00:00:00 (TEL) STLMLC STLMLC [id number] [facility] 2022-03-27 00:00:00 2022-03-27 00:00:00 OFFICE VISIT ESTAB PT LEVEL 2 STLMLC STLMLC [id number] [facility] 2022-02-28 08:00:00 2022-02-28 08:00:00 Outpatient R TONIE MILLER [facility] [id number] [facility] 2022-02-12 00:00:00 2022-02-12 00:00:00 OFFICE VISIT ESTAB PT LEVEL 2 STLMLC STLMLC [id number] [facility] 2022-02-04 07:05:00 2022-02-04 09:09:00 Outpatient R BERNARDO [facility] [id number] [facility] 2022-02-04 07:05:00 2022-02-04 09:09:00 [facility] [place] 1.0.114 350.1.13.10 4.2.7.2.686 [id number] [facility] 2022-02-04 08:25:00 2022-02-04 08:48:00 Surgery Bernardo, [facility] 1.840.114 350.1.13.10 4.2.7.2.686 [id number] [facility] 2022-02-04 00:00:00 2022-02-04 00:00:00 Orders Only Doctor Unassigned, [place] [facility] 1.840.114 350.1.13.10 4.2.7.2.686 [id number] [id number] [facility] 2022-02-01 09:00:00 2022-02-01 09:15:00 Laboratory Only Only, Adc Test Bernardo [facility] 1.2840.114 350.1.13.10 4.2.7.2.686 [id number] [facility] 2022-02-01 09:00:00 2022-02-01 09:00:00 [facility] [id number] 2022-02-01 00:00:00 2022-02-01 00:00:00 Orders Only Doctor Unassigned, [place] [facility] 1.2840.114 350.1.13.10 4.2.7.2.686 [id number] [facility] 2022-01-28 00:00:00 2022-01-28 00:00:00 OFFICE VISIT ESTAB PT LEVEL 4 STLMLC STLMLC [id number] [facility] 2022-01-22 00:00:00 2022-01-22 00:00:00 Orders Only Doctor Unassigned, [place] [facility] 1.2840.114 350.1.13.10 4.2.7.2.686 [id number] [facility] 2022-01-21 14:00:00 2022-01-21 14:00:00 Outpatient RACHELLE GLEASON CHERYAL [facility] [id number] [facility] 2022-01-21 06:28:00 2022-01-21 08:09:00 Outpatient Briseida CHANG [facility] [id number] [facility] 2022-01-21 06:28:00 2022-01-21 08:09:00 Hospital Encounter Benrardo [facility] 1.2.840.114 350.1.13.10 4.2.7.2.686 [id number] [id number] [facility] 2022-01-21 07:25:00 2022-01-21 07:48:00 Surgery Bernardo [facility] 1.2.840.114 350.1.13.10 4.2.7.2.686 [id number] [facility] 2022-01-21 00:00:00 2022-01-21 00:00:00 Orders Only Doctor Unassigned, [place] [facility] 1.2.840.114 350.1.13.10 4.2.7.2.686 [id number] [facility] 2022-01-19 09:15:00 2022-01-19 09:30:00 Laboratory Only Only, Adc Test Tyler Chang [facility] 1.2.840.114 350.1.13.10 4.2.7.2.686 [id number] [facility] 2022-01-19 09:15:00 2022-01-19 09:15:00 [facility] [id number] [facility] 2022-01-19 00:00:00 2022-01-19 00:00:00 Orders Only Doctor Unassigned, [place] [facility] 1.2.840.114 350.1.13.10 4.2.7.2.686 [id number] [id number] [facility] 2022-01-17 00:00:00 2022-01-17 00:00:00 OFFICE VISIT ESTAB PT LEVEL 2 [facility] [id number] 2022 15:30:00 2022 15:30:00 Outpatient RACHELLE GLEASON CHERYAL [facility] [id number] [facility] 2022-01-07 06:46:00 2022-01-07 09:11:00 [facility] [id number] [facility] 2022-01-07 06:46:00 2022-01-07 09:11:00 [facility] 1.2.840.114 350.1.13.10 4.2.7.2.686 [id number] [facility] 2022-01-07 08:23:00 2022-01-07 08:46:00 Surgery Tyler Chang [facility] 1.2.840.114 350.1.13.10 4.2.7.2.686 [id number] [facility] 2022-01-07 00:00:00 2022-01-07 00:00:00 Orders Only Doctor Unassigned, [place] [facility] 1.2.840.114 350.1.13.10 4.2.7.2.686 [id number] [id number] [facility] 2022-01-04 09:45:00 2022-01-04 10:00:00 Laboratory Only Only, Adc Test Tyler Chang [facility] 1.2.840.114 350.1.13.10 4.2.7.2.686 [id number] [facility] 2022-01-04 09:45:00 2022-01-04 09:45:00 Outpatient R TYLER CHNAG [facility] [id number] [facility] 2022-01-04 00:00:00 2022-01-04 00:00:00 Orders Only Doctor Unassigned, [place] [facility] 1.2.840.114 350.1.13.10 4.2.7.2.686 [id number] [id number] [facility] 2022-01-03 00:00:00 2022-01-03 00:00:00 OFFICE VISIT ESTAB PT LEVEL 2 STLMLC STLC [id number] [facility] 2022-01-03 00:00:00 2022-01-03 00:00:00 (TEL) STLMLC STLC [id number] [facility] 2022-01-02 00:00:00 2022-01-02 00:00:00 (TEL) STLMLC STLMLC [id number] [facility] 2021-12-27 10:15:00 2021-12-27 10:30:00 Food Consultant Visit Pob, 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 Tyler Chang [facility] 1.2.840.114 350.1.13.10 4.2.7.2.686 [id number] 353 [id number] [facility] 2021-12-27 10:15:00 2021-12-27 10:15:00 Outpatient TYLER SANFORD [facility] [id number] [facility] 2021-12-27 00:00:00 2021-12-27 00:00:00 Orders Only Doctor Unassigned, [place] [facility] 1.2.840.114 350.1.13.10 4.2.7.2.686 [id number] [facility] 2021-12-13 00:00:00 2021-12-13 00:00:00 (TEL) STLMLC STLMLC [id number] [facility] 2021-12-11 00:00:00 2021-12-11 00:00:00 (TEL) STLMLC STLMLC [id number] [facility] 2021-12-10 00:00:00 2021-12-10 00:00:00 OFFICE VISIT EST PT LEVEL 3 STLMLC STLMLC [id number] [facility] 2021-12-09 00:00:00 2021-12-09 00:00:00 (TEL) STLMLC STLMLC [id number] [facility] 2021-12-05 11:30:00 2021-12-05 11:30:00 Outpatient RACHELLE GLEASON CHERYAL [facility] [id number] [facility] 2021-12-04 00:00:00 2021-12-04 00:00:00 (TEL) STLMLC STLMLC [id number] [facility] 2021-11-22 00:00:00 2021-11-22 00:00:00 OFFICE VISIT ESTAB PT LEVEL 2 STLMLC STLMLC [id number] [facility] 2021-11-07 00:00:00 2021-11-07 00:00:00 (TEL) STLMLC STLMLC [id number] [facility] 2021-10-30 00:00:00 2021-10-30 00:00:00 OFFICE VISIT ESTAB PT LEVEL 4 STLMLC STLMLC [id number] [facility] 2021-10-23 00:00:00 2021-10-23 00:00:00 (TEL) STLMLC STLMLC [id number] [facility] 2021-10-17 00:00:00 2021-10-17 00:00:00 OFFICE VISIT ESTAB PT LEVEL 2 STLMLC STLMLC [id number] [facility] 2021-10-02 00:00:00 2021-10-02 00:00:00 (TEL) STLMLC STLMLC [id number] [facility] 2021-09-27 14:30:00 2021-09-27 14:30:00 Outpatient OTONIEL BASILIO [facility] [id number] [facility] 2021-09-19 00:00:00 2021-09-19 00:00:00 OFFICE VISIT ESTAB PT LEVEL 3 STLMLC STLMLC [id number] [facility] 2021-09-18 10:45:00 2021-09-18 10:45:00 Outpatient OTONIEL BASILIO [facility] [id number] [facility] 2021-09-11 09:30:00 2021-09-11 09:30:00 Outpatient OTONIEL BASILIO [facility] [id number] [facility] 2021-08-30 00:00:00 2021-08-30 00:00:00 (INJ) Injection STLMLC STLMLC [id number] [facility] 2021-08-27 00:00:00 2021-08-27 00:00:00 OL DIG E/M SVC 11-20 MIN STLMLC STLMLC [id number] [facility] 2021-08-20 00:00:00 2021-08-20 00:00:00 (TEL) STLMLC STLMLC [id number] [facility] 2021-08-10 00:00:00 2021-08-10 00:00:00 (TEL) STLMLC STLMLC [id number] [facility] 2021-08-09 00:00:00 2021-08-09 00:00:00 OFFICE VISIT ESTAB PT LEVEL 4 STLMLC STLMLC [id number] [facility] 2021-07-30 00:00:00 2021-07-30 00:00:00 Telephone Cathi [facility] 1..840.114 350.1.13.10 4.2.7.2.686 [id number] 134 [id number] [facility] 2021-07-25 00:00:00 2021-07-25 00:00:00 (INJ) Injection STLMLC STLMLC [id number] [facility] 2021-07-24 14:30:00 2021-07-24 14:50:25 Outpatient R OTONIEL GEIGER [facility] [id number] [facility] 2021-07-24 14:30:00 2021-07-24 14:50:25 Office Visit Cathi [facility] 1..840.114 350.1.13.10 4.2.7.2.686 [id number] [facility] 2021-07-11 00:00:00 2021-07-11 00:00:00 (TEL) STLMLC STLMLC [id number] [facility] 2021-07-02 11:00:00 2021-07-02 11:00:00 Outpatient R OTONIEL GEIGER [facility] [id number] [facility] 2021-07-02 06:47:00 2021-07-02 08:10:00 Outpatient R TYLER CHANG [facility] [id number] [facility] 2021-07-02 06:47:00 2021-07-02 08:10:00 Hospital Encounter Tyler Chang [facility] 1.2.840.114 350.1.13.10 4.2.7.2.686 [id number] [facility] 2021-07-02 07:30:00 2021-07-02 07:50:00 Surgery Bernardo [facility] 1.2.840.114 350.1.13.10 4.2.7.2.686 [id number] [facility] 2021-07-02 00:00:00 2021-07-02 00:00:00 Orders Only Doctor Unassigned, [place] [facility] 1.2.840.114 350.1.13.10 4.2.7.2.686 [id number] [facility] 2021-06-30 10:00:00 2021-06-30 10:15:00 Laboratory Only Only, Adc Test Kira [facility] 1.2.840.114 350.1.13.10 4.2.7.2.686 [id number] [facility] 2021-06-30 10:00:00 2021-06-30 10:00:00 Outpatient Briseida KIRA [facility] [id number] [facility] 2021-06-30 00:00:00 2021-06-30 00:00:00 Orders Only Doctor Unassigned, [place] [facility] 1.2.840.114 350.1.13.10 4.2.7.2.686 [id number] [facility] 2021-06-29 08:15:00 2021-06-29 08:15:00 Outpatient TYLER SANFORD [facility] [id number] [facility] 2021-06-28 15:30:00 2021-06-28 15:59:48 [id number] 2021-06-28 15:30:00 2021-06-28 15:59:48 Office Visit Otoniel Geiger [facility] 1.2.840.114 350.1.13.10 4.2.7.2.686 [id number] [facility] 2021-06-28 15:30:00 2021-06-28 15:59:48 [facility] [id number] [facility] 2021-06-28 10:00:00 2021-06-28 10:00:00 [facility] [id number] [facility] 2021-06-28 10:00:00 2021-06-28 10:00:00 [facility] [id number] [facility] 2021-06-27 00:00:00 2021-06-27 00:00:00 OFFICE VISIT ESTAB PT LEVEL 2 STLMLC STLMLC [id number] [facility] 2021-06-12 10:30:00 2021-06-12 10:30:00 [facility] [id number] [facility] 2021-06-11 07:06:00 2021-06-11 08:45:00 [facility] [id number] [facility] 2021-06-11 07:06:00 2021-06-11 08:45:00 Hospital Encounter Tyler Chang [facility] [place] 1.2.840.114 350.1.13.10 4.2.7.2.686 [id number] [facility] 2021-06-11 07:49:00 2021-06-11 08:09:00 [facility] [place] 1.2.840.114 350.1.13.10 4.2.7.2.686 [id number] [facility] 2021-06-08 08:45:00 2021-06-08 08:45:00 [facility] [id number] [facility] 2021-06-06 00:00:00 2021-06-06 00:00:00 Telephone [facility] 1.2.840.114 350.1.13.10 4.2.7.2.686 [id number] 134 [id number] [facility] 2021-06-01 00:00:00 2021-06-01 00:00:00 [facility] 1.2.840.114 350.1.13.10 4.2.7.2.686 [id number] 134 [id number] [facility] 2021-05-31 00:00:00 2021-05-31 00:00:00 (INJ) Injection STLMLC STLMLC [id number] [facility] 2021-05-30 15:00:00 2021-05-30 15:00:00 Outpatient OTONIEL BASILIO [facility] [id number] [facility] 2021-05-28 07:05:00 2021-05-28 08:35:00 [facility] [id number] [facility] 2021-05-28 07:05:00 2021-05-28 08:35:00 Hospital Encounter Tyler Chang [facility] [place] 1.2.840.114 350.1.13.10 4.2.7.2.686 [id number] [facility] 2021-05-28 07:49:00 2021-05-28 08:09:00 Surgery Tyler Chang [facility] [place] 1.2.840.114 350.1.13.10 4.2.7.2.686 [id number] [facility] 2021-05-28 00:00:00 2021-05-28 00:00:00 Orders Only Doctor Unassigned, [place] [facility] 1.2.840.114 350.1.13.10 4.2.7.2.686 [id number] [facility] 2021-05-25 08:45:00 2021-05-25 08:45:00 [facility] [id number] [facility] 2021-05-24 00:00:00 2021-05-24 00:00:00 OFFICE VISIT ESTAB PT LEVEL 4 STLMLC STLMLC [id number] [facility] 2021-05-23 11:13:53 2021-05-23 11:28:53 Food Consultant Visit Pob, 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 Tyler Chang [facility] PROFESSIO [facility] 1..840.114 350.1.13.10 4.2.7.2.686 [id number] [facility] 2021-05-23 11:15:00 2021-05-23 11:15:00 [facility] [id number] [facility] 2021-05-21 11:45:00 2021-05-21 11:45:00 [facility] [id number] [facility] 2021-05-21 00:00:00 2021-05-21 00:00:00 Orders Only Doctor Unassigned, [place] [facility] 1.2.840.114 350.1.13.10 4.2.7.2.686 [id number] [facility] 2021-05-09 09:30:10 2021-05-09 23:59:00 [facility] [id number] [facility] 2021-05-09 09:30:10 2021-05-09 23:59:00 Hospital Encounter Gilson Changt [facility] 1..840.114 350.1.13.10 4.2.7.2.686 [id number] [facility] 2021-05-09 00:00:00 2021-05-09 00:00:00 [facility] [id number] [facility] 2021-05-09 00:00:00 2021-05-09 00:00:00 Orders Only Doctor Unassigned, [place] [facility] 1.2.840.114 350.1.13.10 4.2.7.2.686 [id number] [facility] 2021-05-09 00:00:00 2021-05-09 00:00:00 Case Management Otoniel Geiger [facility] PROFESSIO [facility] 1..840.114 350.1.13.10 4.2.7.2.686 [id number] [facility] 2021-05-08 16:00:00 2021-05-08 14:47:53 Outpatient OTONIEL BASILIO [facility] [id number] [facility] 2021-05-08 16:00:00 2021-05-08 14:47:53 Outpatient OTONIEL BASILIO [facility] [id number] [facility] 2021-05-08 14:16:31 2021-05-08 14:47:53 Office Visit Otoniel Geiger [facility] 1.2114 350.1.13.10 4.2.7.2.686 [id number] [facility] 2021-05-08 13:30:00 2021-05-08 13:30:00 Outpatient R SARA JOHNSON [facility] [id number] [facility] 2021-04-23 00:00:00 2021-04-23 00:00:00 ([place]) Nurse Visit STLMLC STLMLC [id number] [facility] 2021-04-20 00:00:00 2021-04-20 00:00:00 Refill Cathi [facility] 1.284.114 350.1.13.10 4.2.7.2.686 [id number] [facility] 2021-04-16 00:00:00 2021-04-16 00:00:00 (TEL) STLMLC STLMLC [id number] [facility] 2021-04-11 10:30:00 2021-04-11 10:30:00 Outpatient R [facility] [id number] [facility] 2021-03-28 14:58:27 2021-03-28 23:59:00 Hospital Encounter Teddy Sweeney [facility] 1.2.114 350.1.13.10 4.2.7.2.686 [id number] [facility] 2021-03-28 13:28:14 2021-03-28 14:39:38 Office Visit Otoniel Geiger [facility] 1.284.114 350.1.13.10 4.2.7.2.686 [id number] [facility] 2021-03-28 13:30:00 2021-03-28 13:30:00 Outpatient OTONIEL BASILIO [facility] [id number] [facility] 2021-03-28 00:00:00 2021-03-28 00:00:00 Orders Only Doctor Unassigned, [place] [facility] 1.2.840.114 350.1.13.10 4.2.7.2.686 [id number] [facility] 2021-03-23 00:00:00 2021-03-23 00:00:00 OFFICE VISIT ESTAB PT LEVEL 2 STLMLC STLMLC [id number] [facility] 2021-03-22 11:00:00 2021-03-22 11:00:00 Outpatient MISTY MARTINEZ [facility] [id number] [facility] 2021-03-22 00:00:00 2021-03-22 00:00:00 (TEL) STLMLC STLMLC [id number] [facility] 2021-03-21 00:00:00 2021-03-21 00:00:00 Telephone Cathi [facility] 1.2.840.114 350.1.13.10 4.2.7.2.686 [id number] [facility] 2021-03-20 09:38:10 2021-03-20 09:53:10 Food Consultant Visit Pob, 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 Otoniel Geiger [facility] 1.2.840.114 350.1.13.10 4.2.7.2.686 [id number] [facility] 2021-03-20 09:30:00 2021-03-20 09:30:00 [facility] [id number] [facility] 2021-03-19 00:00:2021-03-19 00:00:00 Outpatient R OTONIEL GEIGER [facility] [id number] [facility] 2021-03-19 00:00:00 2021-03-19 00:00:00 Outpatient R OTONIEL GEIGER [facility] [id number] [facility] 2021-03-19 00:00:00 2021-03-19 00:00:00 Telephone Otoniel Geiger [facility] 1.2.840.114 350.1.13.10 4.2.7.2.686 [id number] 134 [id number] [facility] 2021-03-16 00:00:00 2021-03-16 00:00:[facility].114 350.1.13.10 4.2.7.2.686 [id number] 134 [id number] [facility] 2021-03-15 00:00:00 2021-03-15 00:00:[facility].2840.114 350.1.13.10 4.2.7.2.686 [id number] [facility] 2021-03-13 15:02:56 2021-03-13 15:45:17 Office Visit Otoniel Geiger [facility] 1.2.840.114 350.1.13.10 4.2.7.2.686 [id number] [facility] 2021-03-13 15:30:00 2021-03-13 15:30:00 Outpatient R OTONIEL GEIGER [facility] [id number] [facility] 2021-03-08 00:00:00 2021-03-08 00:00:00 Orders Only Doctor Unassigned, [place] [facility] 1.2840.114 350.1.13.10 4.2.7.2.686 [id number] [facility] 2021-03-08 00:00:00 2021-03-08 00:00:00 Orders Only Doctor Unassigned, [place] [facility] 1.2840.114 350.1.13.10 4.2.7.2.686 [id number] [facility] 2021-02-22 00:00:00 2021-02-22 00:00:00 OFFICE VISIT ESTAB PT LEVEL 4 STLMLC STLMLC [id number] [facility] 2021-02-15 00:00:00 2021-02-15 00:00:00 OFFICE VISIT ESTAB PT LEVEL 1 STLMLC STLMLC [id number] [facility] 2021-02-12 00:00:00 2021-02-12 00:00:00 Outpatient MISTY MARTINEZ [facility] [id number] [facility] 2021-02-08 11:00:00 2021-02-08 12:44:31 Outpatient MISTY MARTINEZ [facility] [id number] [facility] 2021-02-08 10:51:46 2021-02-08 12:44:31 Office Visit Misty Aguirre [place] Procedure [facility] 1.2840.114 350.1.13.10 4.2.7.2.686 [id number] [facility] 2021-02-08 11:00:00 2021-02-08 11:00:00 Outpatient MISTY MARTINEZ [facility] [id number] [facility] 2021-02-08 00:00:00 2021-02-08 00:00:00 Orders Only Doctor Unassigned, [place] [facility] 1.2.840.114 350.1.13.10 4.2.7.2.686 [id number] [facility] 2021-02-06 15:15:00 2021-02-06 17:01:55 Outpatient MISTY MARTINEZ [facility] [id number] [facility] 2021-02-06 14:34:08 2021-02-06 17:01:55 Office Visit Misty Aguirre [facility] 1.2.840.114 350.1.13.10 4.2.7.2.686 [id number] [facility] 2021-02-06 15:15:00 2021-02-06 15:15:00 Outpatient MISTY MARTINEZ [facility] [id number] [facility] 2021-01-25 00:00:00 2021-01-25 00:00:00 OFFICE VISIT ESTAB PT LEVEL 4 STLMLC STLMLC [id number] [facility] 2021-01-02 00:00:00 2021-01-02 00:00:00 OFFICE VISIT ESTAB PT LEVEL 1 STLMLC STLMLC [id number] [facility] 2021-01-02 00:00:00 2021-01-02 00:00:00 (TEL) STLMLC STLMLC [id number] [facility] 2021-01-02 00:00:00 2021-01-02 00:00:00 Orders Only Doctor Unassigned, [place] [facility] 1.2.840.114 350.1.13.10 4.2.7.2.686 [id number] [facility] 2021-01-01 00:00:00 2021-01-01 00:00:00 (TEL) STLMLC STLMLC [id number] [facility] [facility] 2021-01-01 00:00:00 2021-01-01 00:00:00 (TEL) STLMLC STLMLC [id number] [facility] 2020-12-28 00:00:00 2020-12-28 00:00:00 (TEL) STLMLC STLMLC [id number] [facility] 2020-12-27 00:00:00 2020-12-27 00:00:00 (TEL) STLMLC STLMLC [id number] [facility] 2020-12-26 00:00:00 2020-12-26 00:00:00 OFFICE VISIT ESTAB PT LEVEL 3 STLMLC STLMLC [id number] [facility] 2020-12-21 00:00:00 2020-12-21 00:00:00 OFFICE VISIT ESTAB PT LEVEL 1 STLMLC STLMLC [id number] [facility] 2020-12-20 00:00:00 2020-12-20 00:00:00 (TEL) STLMLC STLMLC [id number] [facility] 2020-12-08 00:00:00 2020-12-08 00:00:00 Orders Only Doctor Unassigned, [place] [facility] 1.2.840.114 350.1.13.10 4.2.7.2.686 [id number] [facility] 2020-12-05 00:00:00 2020-12-05 00:00:00 OFFICE VISIT ESTAB PT LEVEL 1 STLMLC STLMLC [id number] [facility] 2020-12-04 00:00:00 2020-12-04 00:00:00 (TEL) STLMLC STLMLC [id number] [facility] 2020-10-30 07:18:00 2020-10-30 08:57:00 Hospital Encounter [facility] 1.2.840.114 350.1.13.10 4.2.7.2.686 [id number] [facility] 2020-10-30 07:51:00 2020-10-30 08:14:00 Surgery [facility] 1.2.840.114 350.1.13.10 4.2.7.2.686 [id number] [facility] 2020-10-30 00:00:00 2020-10-30 00:00:00 Orders Only Doctor Unassigned, [place] [facility] 1.2840.114 350.1.13.10 4.2.7.2.686 [id number] [facility] 2020-10-27 11:16:12 2020-10-27 11:31:12 Laboratory Only Only, Adc Test Bernardo, [facility] 1.840.114 350.1.13.10 4.2.7.2.686 [id number] [facility] 2020-10-27 08:45:00 2020-10-27 08:45:00 Outpatient R BERNARDO [facility] [id number] [facility] 2020-10-27 00:00:00 2020-10-27 00:00:00 Orders Only Doctor Unassigned, [place] [facility] 1.2840.114 350.1.13.10 4.2.7.2.686 [id number] [facility] 2020-10-26 00:00:00 2020-10-26 00:00:00 OFFICE VISIT ESTAB PT LEVEL 4 STLMLC STLMLC [id number] [facility] 2020-10-20 00:00:00 2020-10-20 00:00:00 (TEL) STLMLC STLMLC [id number] [facility] 2020-10-18 00:00:00 2020-10-18 00:00:00 (TEL) STLMLC STLMLC [id number] [facility] 2020-10-16 06:39:00 2020-10-16 08:43:00 Hospital Encounter Bern[facility] 1.840.114 350.1.13.10 4.2.7.2.686 [id number] 2020-10-16 06:39:00 2020-10-16 08:43:00 Hospital Encounter [facility] [place] 1.2.840.114 350.1.13.10 4.2.7.2.686 [id number] [facility] 2020-10-16 07:51:00 2020-10-16 08:13:00 Surgery [facility] 1.2.840.114 350.1.13.10 4.2.7.2.686 [id number] [id number] 2020-10-16 07:51:00 2020-10-16 08:13:00 [facility] 1.2.840.114 350.1.13.10 4.2.7.2.686 [id number] [facility] 2020-10-16 00:00:00 2020-10-16 00:00:00 Orders Only Doctor Unassigned, [place] [facility] 1.2.840.114 350.1.13.10 4.2.7.2.686 [id number] [facility] 2020-10-16 00:00:00 2020-10-16 00:00:00 Orders Only Doctor Unassigned, [place] [facility] 1.2.840.114 350.1.13.10 4.2.7.2.686 [id number] [id number] 2020-10-13 10:15:00 2020-10-13 10:15:00 Outpatient R TYLER CHANG [facility] [id number] [facility] 2020-10-13 09:49:03 2020-10-13 10:04:03 Laboratory Only Only, Adc Test Tyler Chang [facility] 1.2.840.114 350.1.13.10 4.2.7.2.686 [id number] [facility] 2020-10-13 09:49:03 2020-10-13 10:04:03 Laboratory Only Only, Adc Test [facility] 1.2.840.114 350.1.13.10 4.2.7.2.686 [id number] 2020-10-13 00:00:00 2020-10-13 00:00:00 Orders Only Doctor Unassigned, [place] [facility] 1.2.840.114 350.1.13.10 4.2.7.2.686 [id number] [id number] [facility] 2020-10-13 00:00:00 2020-10-13 00:00:00 Orders Only Doctor Unassigned, [place] [facility] 1.2840.114 350.1.13.10 4.2.7.2.686 [id number] 2020-10-05 00:00:00 2020-10-05 00:00:00 (TEL) STLMLC STLMLC [id number] [facility] 2020-10-03 00:00:00 2020-10-03 00:00:00 (TEL) STLMLC STLMLC [id number] [facility] 2020-10-02 06:53:00 2020-10-02 09:27:00 Hospital Encounter [facility] 1.2.840.114 350.1.13.10 4.2.7.2.686 [id number] [facility] 2020-10-02 06:53:00 2020-10-02 09:27:00 Hospital Encounter [facility] 1.2.840.114 350.1.13.10 4.2.7.2.686 [id number] 2020-10-02 07:51:00 2020-10-02 08:16:00 Surgery [facility] 1.2.840.114 350.1.13.10 4.2.7.2.686 [id number] [facility] 2020-10-02 07:51:00 2020-10-02 08:16:00 Surgery [facility] 1.2.840.114 350.1.13.10 4.2.7.2.686 [id number] 020 [id number] 2020-10-02 00:00:00 2020-10-02 00:00:00 Orders Only Doctor Unassigned, [place] [facility] 1.2.840.114 350.1.13.10 4.2.7.2.686 [id number] [id number] [facility] 2020-10-02 00:00:00 2020-10-02 00:00:00 Orders Only Doctor Unassigned, [place] [facility] 1.2.840.114 350.1.13.10 4.2.7.2.686 [id number] [id number] 2020-09-29 10:08:41 2020-09-29 10:23:41 Laboratory Only Only, Adc Test Tyler Chang [facility] 1.2.840.114 350.1.13.10 4.2.7.2.686 [id number] [facility] 2020-09-29 10:08:41 2020-09-29 10:23:41 Laboratory Only Only, Adc Test [facility] 1.2.840.114 350.1.13.10 4.2.7.2.686 [id number] 2020-09-29 10:15:00 2020-09-29 10:15:00 Outpatient R TYLER CHANG [facility] [id number] [facility] 2020-09-27 14:35:00 2020-09-27 14:50:00 Food Consultant Visit Pob, 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 Tyler Chang S [facility] Building 1.2.840.114 350.1.13.10 4.2.7.2.686 [id number] [facility] 2020-09-27 14:35:00 2020-09-27 14:50:00 Food Consultant Visit Pob, 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 [facility] 1.2.840.114 350.1.13.10 4.2.7.2.686 [id number] 2020-09-27 14:45:00 2020-09-27 14:45:00 Outpatient R [facility] [id number] [facility] 2020-09-27 00:00:00 2020-09-27 00:00:00 Orders Only Doctor Unassigned, [place] [facility] 1.2.840.114 350.1.13.10 4.2.7.2.686 [id number] [facility] 2020-09-27 00:00:00 2020-09-27 00:00:00 Orders Only Doctor Unassigned, [place] [facility] 1.2840.114 350.1.13.10 4.2.7.2.686 [id number] 2020-09-17 12:10:00 2020-09-17 12:10:00 Outpatient [facility] [id number] [facility] 2020-08-20 11:35:00 2020-08-20 11:35:00 Outpatient [facility] [id number] [facility] 2020-07-07 10:30:00 2020-07-07 10:45:00 Office Visit Angle Elizabeth [facility] 1.2.840.114 350.1.13.10 4.2.7.2.686 [id number] [facility] 2020-07-07 10:30:00 2020-07-07 10:45:00 Office Visit Angle Elizabeth [facility] 1.2.840.114 350.1.13.10 4.2.7.2.686 [id number] 2020-07-07 10:30:00 2020-07-07 10:30:00 Outpatient ANGLE CONRAD [facility] [id number] [facility] 2020-06-27 00:00:00 2020-06-27 00:00:00 (TEL) STLMLC STLMLC [id number] [facility] 2020-06-14 11:00:00 2020-06-14 11:00:00 Outpatient R TANG PIERCE [facility] [id number] [facility] 2020-06-02 10:20:29 2020-06-02 10:49:49 Office Visit Angle Elizabeth [facility] 1..840.114 350.1.13.10 4.2.7.2.686 [id number] [facility] 2020-06-02 10:30:00 2020-06-02 10:30:00 Outpatient Briseida ANGLE ELIZABETH [facility] [id number] [facility] 2020-05-29 00:00:00 2020-05-29 00:00:00 (TEL) STLMLC STLMLC [id number] [facility] 2020-05-24 10:00:00 2020-05-24 10:00:00 Outpatient ALBERT MICHELLE [facility] [id number] [facility] 2020-05-22 00:00:00 2020-05-22 00:00:00 Orders Only Doctor Unassigned, [place] [facility] 1..840.114 350.1.13.10 4.2.7.2.686 [id number] [id number] [facility] 2020-05-17 00:00:00 2020-05-17 00:00:00 (TEL) STLMLC STLMLC [id number] [facility] 2020-05-16 00:00:00 2020-05-16 00:00:00 OFFICE VISIT ESTAB PT LEVEL 4 STLMLC STLMLC [id number] [facility] 2020-05-08 13:00:00 2020-05-08 13:00:00 Outpatient ALBERT MICHELLE [facility] [id number] [facility] 2020-04-27 00:00:00 2020-04-27 00:00:00 OFFICE VISIT ESTAB PT LEVEL 4 STLMLC STLMLC [id number] [facility] 2020-04-26 00:00:00 2020-04-26 00:00:00 (TEL) STLMLC STLMLC [id number] [facility] 2020-04-13 00:00:00 2020-04-13 00:00:00 OFFICE VISIT ESTAB PT LEVEL 4 STLMLC STLMLC [id number] [facility] 2020-04-07 10:16:43 2020-04-07 10:31:43 Office Visit Tang Pierce [facility] 1.2.840.114 350.1.13.10 4.2.7.2.686 [id number] [facility] 2020-04-07 10:15:00 2020-04-07 10:15:00 Outpatient TANG CRUZ [facility] [id number] [facility] 2020-04-06 00:00:00 2020-04-06 00:00:00 (TEL) STLMLC STLMLC [id number] [facility] 2020-03-30 10:00:00 2020-03-30 10:00:00 Outpatient BENITEZ SANDERS [facility] [id number] [facility] 2020-03-30 00:00:00 2020-03-30 00:00:00 OFFICE VISIT ESTAB PT LEVEL 2 STLMLC STLMLC [id number] [facility] 2020-03-28 00:00:00 2020-03-28 00:00:00 OFFICE VISIT EST PT LEVEL 3 STLMLC STLMLC [id number] [facility] 2020-03-23 00:00:00 2020-03-23 00:00:00 [facility] [id number] [facility] 2020-03-16 14:15:00 2020-03-16 14:15:00 Outpatient TANG CRUZ [facility] [id number] [facility] 2020-03-16 00:00:00 2020-03-16 00:00:00 OFFICE VISIT ESTAB PT LEVEL 4 [facility] [id number] [facility] 2020-03-09 10:30:00 2020-03-09 10:30:00 Outpatient TANG CRUZ [facility] [id number] [facility] 2020-03-06 07:43:00 2020-03-06 13:03:00 Hospital Encounter Bernardo Tyler [facility] 1.2.840.114 350.1.13.10 4.2.7.2.686 [id number] [facility] 2020-03-03 09:13:26 2020-03-03 09:28:26 Laboratory Only Only, Adc Test Jules Gordon [facility] 1.2.840.114 350.1.13.10 4.2.7.2.686 [id number] [facility] 2020-03-03 09:00:00 2020-03-03 09:00:00 Outpatient JULES ELIAS [facility] [id number] [facility] 2020-03-02 16:00:00 2020-03-02 16:00:00 [facility] [id number] [facility] 2020-03-01 16:58:00 2020-03-01 16:58:00 [facility] [id number] [facility] 2020-02-29 09:32:00 2020-02-29 09:32:00 Outpatient [facility] [facility] [place] [facility] [id number] [facility] 2020-02-29 00:00:00 2020-02-29 00:00:00 Orders Only Doctor Unassigned, [place] [facility] 1..840.114 350.1.13.10 4.2.7.2.686 [id number] [facility] 2020-02-19 12:20:00 2020-02-19 12:20:00 Outpatient R [facility] [id number] [facility] 2020-02-19 11:43:00 2020-02-19 11:43:00 Outpatient [facility] [id number] [facility] 2020-02-18 00:00:00 2020-02-18 00:00:00 OFFICE VISIT ESTAB PT LEVEL 3 [facility] [place] [facility] [id number] [facility] 2020-02-17 11:30:00 2020-02-17 11:30:00 [facility] [place] [facility] [id number] [facility] 2020-02-10 17:00:00 2020-02-10 17:00:00 Outpatient R GEREMIAS YOST [facility] [id number] [facility] 2020-02-07 10:00:00 2020-02-07 10:00:00 Outpatient R BRAEDEN DELONG [facility] [id number] [facility] 2020-01-13 09:45:00 2020-01-13 09:45:00 Outpatient R CATALINA PARKER [facility] [id number] [facility] 2020-01-10 07:03:50 2020-01-10 09:20:00 Hospital Encounter Bernardo Tyler S [facility] 1..840.114 350.1.13.10 4.2.7.2.686 [id number] [facility] 2020-01-10 00:00:00 2020-01-10 00:00:00 Orders Only Doctor Unassigned, [place] [facility] 1.114 350.1.13.10 4.2.7.2.686 [id number] [facility] 2020-01-07 08:46:30 2020-01-07 09:01:30 Laboratory Only Only, Adc [facility] 1.114 350.1.13.10 4.2.7.2.686 [id number] [facility] 2020-01-07 08:30:00 2020-01-07 08:30:00 Outpatient Briseida CHANG [facility] [id number] [facility] 2020-01-07 00:00:00 2020-01-07 00:00:00 Orders Only Doctor Unassigned, [place] [facility] 1.114 350.1.13.10 4.2.7.2.686 [id number] [facility] 2019-12-30 11:00:00 2019-12-30 11:00:00 Outpatient CATALINA MANJARREZ [facility] [id number] [facility] 2019-12-28 11:00:00 2019-12-28 11:00:00 Outpatient DENNYS STUART [facility] [id number] [facility] 2019-12-24 09:32:00 2019-12-24 09:32:[address] [facility] [place] [facility] [id number] [facility] 2019-12-22 13:50:17 2019-12-22 14:05:17 Food Consultant Visit Pob, 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 Tyler Chang [facility] 1.114 350.1.13.10 4.2.7.2.686 [id number] [facility] 2019-12-22 14:00:00 2019-12-22 14:00:00 Outpatient TYLER SANFORD [facility] [id number] [facility] 2019-12-22 00:00:00 2019-12-22 00:00:00 Orders Only Doctor Unassigned, [place] [facility] 1.2.840.114 350.1.13.10 4.2.7.2.686 [id number] [facility] 2019-12-13 11:45:00 2019-12-13 11:45:[address] [facility] [address] [place] [address] [facility] [id number] [facility] 2019-12-01 16:54:00 2019-12-01 16:54:[address] [facility] [address] [facility] [place] [facility] [id number] [facility] 2019-11-25 16:55:00 2019-11-25 16:55:[address] [facility] [address] [facility] [place] [address] [facility] [id number] [facility] 2019-11-22 11:38:00 2019-11-22 11:38:[address] [facility] [address] [facility] [place] [facility] [id number] [facility] 2019-11-19 16:25:00 2019-11-19 16:25:[address] [facility] [address] [facility] [place] [facility] [id number] [facility] 2019-11-19 09:15:00 2019-11-19 09:15:00 Outpatient CATALINA MANJARREZ [facility] [id number] [facility] 2019-11-18 16:23:00 2019-11-18 16:23:[address] [facility] [address] [facility] [place] [facility] [id number] [facility] 2019-11-18 10:45:00 2019-11-18 10:45:[address] [facility] [place] [facility] [facility] [id number] [facility] 2019-11-08 14:04:00 2019-11-08 14:04:[address] [facility] [address] [facility] [place] [address] [facility] [id number] [facility] 2019-11-05 14:36:00 2019-11-05 14:36:[address] [facility] [address] [facility] [place] [address] [facility] [id number] [facility] 2019-11-01 11:35:00 2019-11-01 11:35:[address] [facility] [address] [facility] [place] [address] [facility] [id number] [facility] 2019-10-27 13:30:00 2019-10-27 13:30:[address] [place] [facility] [address] [facility] [place] [address] [facility] [id number] [facility] 2019-10-26 08:59:00 2019-10-26 08:59:[address] [facility] [address] [facility] [place] [address] [facility] [id number] [facility] 2019-10-25 08:37:00 2019-10-25 08:37:[address] [place] [facility] [address] [facility] [place] [address] [facility] [id number] [facility] 2019-10-20 00:00:00 2019-10-20 00:00:00 Telephone [facility] 1.2.840.114 350.1.13.10 4.2.7.2.686 [id number] [facility] 2019-10-14 15:00:00 2019-10-14 15:00:[address] [address] [facility] [place] [address] [facility] [id number] [facility] 2019-10-12 09:50:00 2019-10-12 09:50:[address] [facility] [address] [facility] [place] [address] [facility] [id number] [facility] 2019-10-07 13:00:00 2019-10-07 13:00:00 Outpatient R BRAEDEN DELONG [facility] [id number] [facility] 2019-10-05 00:00:00 2019-10-05 00:00[facility]00 [facility] 1.2.840.114 350.1.13.10 4.2.7.2.686 [id number] [facility] 2019-10-04 10:45:00 2019-10-04 10:45:00 [facility] [id number] [facility] 2019-10-04 08:05:56 2019-10-04 08:20:56 Telemedici ne Visit [facility] 1.2.840.114 350.1.13.10 4.2.7.2.686 [id number] [facility] 2019-10-04 00:00:00 2019-10-04 00:00:00 [facility] 1.2.840.114 350.1.13.10 4.2.7.2.686 [id number] [facility] 2019-09-30 00:00:00 2019-09-30 00:00:00 [facility] 1.2.840.114 350.1.13.10 4.2.7.2.686 [id number] [facility] 2019-09-28 00:00:00 2019-09-28 00:00:00 [facility] 1.2.840.114 350.1.13.10 4.2.7.2.686 [id number] [facility] 2019-09-28 00:00:00 2019-09-28 00:00:00 Telephone [facility] 1.2.840.114 350.1.13.10 4.2.7.2.686 [id number] [facility] 2019-09-27 00:00:00 2019-09-27 00:00:00 Telephone Baljeet [facility] 1.2.840.114 350.1.13.10 4.2.7.2.686 [id number] [facility] 2019-09-23 11:55:19 2019-09-23 17:04:00 Emergency Umair Arreaga [facility] 1.2.840.114 350.1.13.10 4.2.7.2.686 [id number] [facility] 2019-09-23 11:55:19 2019-09-23 17:04:00 Emergency X UMAIR ARREAGA [facility] ERT [id number] [facility] 2019-09-23 06:35:00 2019-09-23 11:37:00 Hospital Encounter Baljeet [facility] 1.0.114 350.1.13.10 4.2.7.2.686 [id number] [facility] 2019-09-23 06:35:00 2019-09-23 11:37:00 Outpatient R BALJEET [facility] KIERAN [id number] [facility] 2019-09-23 07:37:00 2019-09-23 09:11:00 Anesthesia Tang [facility] [place] 1.840.114 350.1.13.10 4.2.7.2.686 [id number] [facility] 2019-09-23 00:00:00 2019-09-23 00:00:00 Orders Only Doctor Unassigned, [place] [facility] 1.2.840.114 350.1.13.10 4.2.7.2.686 [id number] [facility] 2019-09-23 00:00:00 2019-09-23 00:00:00 Telephone [facility] 1.2.840.114 350.1.13.10 4.2.7.2.686 [id number] [facility] 2019-09-20 00:00:00 2019-09-20 00:00:00 Telephone [facility] 1.2.840.114 350.1.13.10 4.2.7.2.686 [id number] [facility] 2019-09-19 00:00:00 2019-09-19 00:00:[address] [facility] 1.2.840.114 350.1.13.10 4.2.7.2.686 [id number] [facility] 2019-09-17 08:05:00 2019-09-17 08:05:00 [facility] [id number] [facility] 2019-09-16 06:36:00 2019-09-16 11:50:[address] [facility] [place] 1.2.840.114 350.1.13.10 4.2.7.2.686 [id number] [facility] 2019-09-16 06:36:00 2019-09-16 11:50:00 Outpatient R [facility] KIERAN [id number] [facility] 2019-09-16 00:00:00 2019-09-16 00:00:00 Orders Only Doctor Unassigned, [place] [facility] 1.2.840.114 350.1.13.10 4.2.7.2.686 [id number] [facility] 2019-09-16 00:00:00 2019-09-16 00:00:00 Telephone [facility] 1.2.840.114 350.1.13.10 4.2.7.2.686 [id number] [facility] 2019-09-16 00:00:00 2019-09-16 00:00:00 [facility] 1.2.840.114 350.1.13.10 4.2.7.2.686 [id number] [facility] 2019-09-15 00:00:00 2019-09-15 00:00:00 Telephone [facility] Building 1.2.840.114 350.1.13.10 4.2.7.2.686 [id number] [facility] 2019-09-13 13:33:09 2019-09-13 13:48:09 Food Consultant Visit Pob, 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 Baljeet [facility] Building 1.2.840.114 350.1.13.10 4.2.7.2.686 [id number] [facility] 2019-09-13 08:41:39 2019-09-13 08:56:39 Telemedici ne Visit Baljeet [facility] 1.2.840.114 350.1.13.10 4.2.7.2.686 [id number] [facility] 2019-09-13 08:30:00 2019-09-13 08:30:00 [id number] 2019-09-13 00:00:00 2019-09-13 00:00:00 Prep For Surgery Livia Gallardo [facility] Building 1.2.840.114 350.1.13.10 4.2.7.2.686 [id number] [facility] 2019-09-10 07:57:26 2019-09-12 14:20:00 Outpatient AMALIA [facility]ORMK[facility] [id number] [facility] 2019-09-10 07:57:26 2019-09-12 14:20:00 Emergency EvFawad arias, Zee Contreras, Amalia [facility] 1.2840.114 350.1.13.10 4.2.7.2.686 [id number] [facility] 2019-08-27 00:00:00 2019-08-27 00:00:00 OFFICE VISIT ESTAB PT LEVEL 4 [facility] [facility] [id number] Common [facility] 2019-08-23 07:14:00 2019-08-23 09:35:00 Outpatient R BERNARDO [facility] [id number] [facility] 2019-08-23 07:14:00 2019-08-23 09:35:00 Hospital Encounter Tyler Chang [facility] 1.2840.114 350.1.13.10 4.2.7.2.686 [id number] [facility] 2019-08-23 08:23:00 2019-08-23 08:35:00 Anesthesia Minerva Ba Leonard [facility] 1.2840.114 350.1.13.10 4.2.7.2.686 [id number] [facility] 2019-08-23 07:14:00 2019-08-23 07:14:00 Outpatient R BERNARDO [facility] [id number] [facility] 2019-08-23 00:00:00 2019-08-23 00:00:00 Orders Only Doctor Unassigned, [place] [facility] 1.2840.114 350.1.13.10 4.2.7.2.686 [id number] [facility] 2019-08-19 11:00:00 2019-08-19 11:00:00 Outpatient [facility] [id number] [facility] 2019-08-19 00:00:00 2019-08-19 00:00:00 Orders Only Doctor Unassigned, [place] [facility] [id number] 350.1.13.10 4.2.7.2.686 [id number] [facility] 2019-08-05 09:15:00 2019-08-05 09:15:00 Outpatient [facility] [id number] [facility] 2019-08-03 14:40:00 2019-08-03 14:40:00 Outpatient [facility] [id number] [facility] 2019-08-02 07:03:40 2019-08-02 09:10:00 Outpatient TYLER SANFORD [facility] KIERAN [id number] [facility] 2019-08-02 07:03:40 2019-08-02 09:10:00 Hospital Encounter Tyler Chang [facility] [id number] 350.1.13.10 4.2.7.2.686 [id number] [facility] 2019-08-02 00:00:00 2019-08-02 00:00:00 Orders Only Doctor Unassigned, [place] [facility] [id number] 350.1.13.10 4.2.7.2.686 [id number] [facility] 2019-07-29 13:23:00 2019-07-29 13:23:00 Outpatient [facility] [id number] [facility] 2019-07-28 14:09:44 2019-07-28 14:24:44 Food Consultant Visit Pob, 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 Tyler Chang [facility] [id number] 350.1.13.10 4.2.7.2.686 [id number] [facility] 2019-07-28 00:00:00 2019-07-28 00:00:00 Orders Only Doctor Unassigned, [place] [facility] [id number] 350.1.13.10 4.2.7.2.686 [id number] [facility] 2019-07-27 00:00:00 2019-07-27 00:00:00 Orders Only Doctor Unassigned, [place] [facility] 1.2.840.114 350.1.13.10 4.2.7.2.686 [id number] [facility] 2019-07-19 13:59:00 2019-07-19 13:59:[address] [facility] [address] [facility] [id number] [facility] 2019-07-14 13:18:00 2019-07-14 13:18:00 [facility] [address] [facility] [facility] [id number] [facility] 2019-07-06 10:00:00 2019-07-06 10:00:00 [facility] [address] [facility] [id number] [facility] 2019-05-17 13:30:00 2019-05-17 13:30:[address] [facility] [address] [facility] [place] [facility] [id number] [facility] 2019-03-30 15:00:00 2019-03-30 15:00:00 [facility] [id number] [facility] 2019-03-23 08:47:00 2019-03-23 08:47:00 [facility] [id number] [facility] 2019-03-22 16:57:00 2019-03-22 16:57:00 Outpatient [facility] [id number] [facility] 2019-03-17 09:45:00 2019-03-17 09:45:00 Outpatient [facility] [id number] [facility] 2019-03-04 00:00:00 2019-03-04 00:00:00 OFFICE VISIT ESTAB PT LEVEL 4 [facility] [id number] [facility] 2019-03-01 11:00:00 2019-03-01 11:00:00 Outpatient [facility] [id number] [facility] 2019-02-23 13:15:00 2019-02-23 13:15:00 Outpatient [facility] [id number] [facility] 2019-02-17 00:00:00 2019-02-17 00:00:00 Prep For Surgery Livia Gallardo [facility] 12.840.114 350.1.13.10 4.2.7.2.686 [id number] [facility] 2019-02-16 15:16:30 2019-02-16 15:46:30 Office Visit Ashley Valdez [facility] 12.840.114 350.1.13.10 4.2.7.2.686 [id number] [facility] 2019-02-15 09:54:00 2019-02-15 09:54:00 [facility] [id number] [facility] 2019-02-08 00:00:00 2019-02-08 00:00:00 OFFICE VISIT ESTAB PT LEVEL 3 [facility] [id number] [facility] 2019-02-01 14:15:00 2019-02-01 14:15:00 [facility] [id number] [facility] 2019-01-27 00:00:00 2019-01-27 00:00:00 OFFICE VISIT ESTAB PT LEVEL [address] [facility] [place] [facility] [id number] [facility] 2019-01-15 09:51:11 2019-01-15 10:51:11 Office Visit Catalina Parker [facility] Viviane Ramírez [facility] [place] [place] [id number] 350.1.13.10 4.2.7.2.686 [id number] [facility] 2018-12-08 13:00:00 2018-12-08 13:00:[address] [facility] [address] [facility] [place] [facility] [id number] [facility] 2018-12-07 16:17:00 2018-12-07 16:17:[address] [facility] [address] [facility] [place] [facility] [id number] [facility] 2018-12-03 09:15:00 2018-12-03 09:15:[address] [facility] [facility] [address] [facility] [place] [facility] [id number] [facility] 2018-10-19 16:30:00 2018-10-19 16:30:00 [facility] [facility] [address] [facility] [place] [facility] [id number] [facility] 2018-10-01 13:52:00 2018-10-01 13:52:[address] [facility] [facility] [address] [facility] [place] [facility] [id number] [facility] 2018-09-14 08:34:00 2018-09-14 08:34:[address] [facility] [facility] [address] [facility] [place] [facility] [id number] [facility] 2018-09-10 14:45:00 2018-09-10 14:45:00 [facility] [facility] [address] [place] [facility] [id number] [facility] 2018-08-26 16:26:00 2018-08-26 16:26:00 [facility] [address] [place] [facility] [id number] [facility] 2018-08-25 10:00:00 2018-08-25 10:00:00 [facility] [address] [facility] [place] [facility] [id number] [facility] 2018-08-19 08:22:00 2018-08-19 08:22:00 [facility] [place] [facility] [id number] [facility] 2018-07-16 13:00:00 2018-07-16 13:00:00 [facility] [place] [facility] [id number] [facility] 2018-03-25 10:15:00 2018-03-25 10:15:00 [facility] [facility] [address] [facility] [place] [address] [address] [facility] [id number] [facility] 2018-02-03 09:02:00 2018-02-03 09:02:00 Out[facility] [address] [facility] [place] [address] [address] [facility] [id number] [facility] 2018-01-23 10:00:00 2018-01-23 10:00:00 [facility] [address] [facility] [place] [facility] [id number] [facility] 2017-12-23 10:30:00 2017-12-23 10:30:00 [facility] [address] [facility] [place] [facility] [id number] [facility] 2017-12-16 15:15:00 2017-12-16 15:15:00 [facility] [address] [place] [facility] [id number] [facility] 2017-11-04 10:00:00 2017-11-04 10:00:00 [facility] [address] [place] [facility] [id number] [facility] 2016-05-14 03:16:00 2016-05-14 03:16:00 Outpatient Lloydu[facility]P [facility] [id number] 2014-08-22 12:43:07 2014-08-22 23:00:00 Outpatient TYLER TORRES [facility] [id number] [facility] Results Test Description Test Time Test Comments Results Result Co mments Source LIPID [id number] 04:19:50* Test Item Value Reference Range Interpretation Comme nts CHOLESTEROL (test code = 2210) 149 MG/DL <200 TRIGLYCERIDES (test code = 2232) 250 MG/DL <150 H HDL CHOLESTEROL (test code = 2220) 50 MG/DL >39 CALC LDL CHOL (test code = 2237) 70 MG/DL <100 NOTE: CALCULATED LDL IS BASED ON DARINEL-HURTADO METHOD WHICHINCLUDES ADJUSTABLE TRIGLYCERIDE:VLDL CHOLESTEROL RATIO.THIS FACTOR VARIES BY MEASURED TRIGLYCERIDE AND NON-HDLCHOLESTEROL CONCENTRATIONS WITH INCREASED CALCULATED LDL SEENIN HIGHER TRIGLYCERIDE OR LOWER NON-HDL SPECIMENS. FOR MOREINFORMATION, SEE CLIENT ANNOUNCEMENT AT [email or web address] RISK RATIO LDL/HDL (test code = 2238) 1.40 RATIO <3.22 TSH, THIRD [id number] 04:08:16* Test Item Value Reference Range Interpretation Comme nts TSH, THIRD GENERATION (test code = 2821) 0.959 UIU/ML 0.400-4.100 HEMOGLOBIN [id number] 03:33:35* Test Item Value Reference Range Interpretation Comme nts HEMOGLOBIN A1c (test code = 14153) 5.9 % 4.2-5.6 H [employer] GUIDELINES FOR HGB A1C: PREDIABETES/INCREASED RISK . . . . . . . 5.7-6.4% DIAGNOSIS OF DIABETES . . . . . . . . . >=6.5% WITH CONFIRMATION OR APPROPRIATE SYMPTOMS NOTE: ASSAY MAY BE AFFECTED BY HEMOGLOBINOPATHIES (SICKLE CELL ANEMIA, S-C DISEASE, OTHERS) OR ARTIFICIALLY LOWERED BY DECREASED RED CELL SURVIVAL (HEMOLYTIC ANEMIAS, BLOOD LOSS, ETC.). CONSIDER ALTERNATE TESTING OR LABORATORY CONSULTATION. CBC W/AUTO DIFF WITH [id number] 02:35:46* Test Item Value Reference Range Interpretation Comme nts WBC (test code = 1001) 5.2 K/UL 3.5-11.0 RBC (test code = 1002) 4.57 M/UL 3.80-5.40 HEMOGLOBIN (test code = 1003) 13.6 G/DL 11.5-15.5 HEMATOCRIT (test code = 1004) 41.2 % 34.0-45.0 MCV (test code = 1005) 90.2 fL 80.0-99.0 MCH (test code = 1006) 29.8 PG 25.0-33.0 MCHC (test code = 1007) 33.0 G/DL 31.0-36.0 RDW (test code = 1038) 14.5 % 11.5-15.0 NEUTROPHILS (test code = 1008) 45.8 % LYMPHOCYTES (test code = 1010) 46.6 % MONOCYTES (test code = 1011) 5.8 % EOSINOPHILS (test code = 1012) 1.2 % BASOPHILS (test code = 1013) 0.6 % IMMATURE GRANULOCYTES (test code = 1036) 0.0 % NUCLEATED RBCS (test code = 1065) 0.0 /100 WBC'S See_Comment [Automated message] The system which generated this result transmitted reference range: 0.0. The reference range was not used to interpret this result as normal/abnormal. PLATELET COUNT (test code = 1015) 176 K/UL 130-400 ABSOLUTE NEUTROPHILS (test code = 1066) 2.38 K/UL 1.50-7.50 ABSOLUTE LYMPHOCYTES (test code = 1067) 2.42 K/UL 1.00-4.00 ABSOLUTE MONOCYTES (test code = 1068) 0.30 K/UL 0.20-1.00 ABSOLUTE EOSINOPHILS (test code = 1040) 0.06 K/UL 0.00-0.50 ABSOLUTE BASOPHILS (test code = 1069) 0.03 K/UL 0.00-0.20 ABS IMMATURE GRANULOCYTES (test code = 1020) 0.00 K/UL 0.00-0.10 ABS NUCLEATED RBCS (test code = 27512) 0.00 K/UL 0.00-0.11 UNLESS OTHER SHANNON INDICATED, ALL TESTING PERFORMED AT [facility] [address] [place] [id number] [employer] APPRENTICE: DALLIN RAMOS M.D. CLIA NUMBER [id number] [place]. [id number] TSH, THIRD [id number] 00:00:00* Test Item Value Reference Range Interpretation Comme dulce maria TSH, THIRD GENERATION (test code = 2821) 0.959 UIU/ML Rock ReynagaHEMOGLOBIN [id number] 00:00:00* Test Item Value Reference Range Interpretation Comme nts HEMOGLOBIN A1c (test code = 39700) 5.9 % Rock ReynagaCOMPREHENSIVE METABOLIC [id number] 00:00:00* Test Item Value Reference Range Interpretation Comme nts GLUCOSE (test code = 2217) 117 MG/DL BUN (test code = 2208) 14 MG/DL CREATININE (test code = 2214) 0.67 MG/DL eGFR (2020 CKD-EPI) (test co de = 50585) 96 ML/MIN/1.73 CALC BUN/CREAT (test code = 2235) 21 RATIO SODIUM (test code = 2231) 140 MEQ/L POTASSIUM (test code = 2228) 3.6 MEQ/L CHLORIDE (test code = 2215) 105 MEQ/L CARBON DIOXIDE (test code = 2206) 22 MEQ/L CALCIUM (test code = 2209) 10.1 MG/DL PROTEIN, TOTAL (test code = 2229) 7.1 G/DL ALBUMIN (test code = 2201) 4.3 G/DL CALC GLOBULIN (test code = 2240) 2.8 G/DL CALC A/G RATIO (test code = 2234) 1.5 RATIO BILIRUBIN, TOTAL (test code = 2207) 1.3 MG/DL ALKALINE PHOSPHATASE (test code = 2204) 128 U/L AST (test code = 2218) 30 U/L ALT (test code = 2219) 17 U/L Rock ReynagaLIPID [id number] 00:00:00* Test Item Value Reference Range Interpretation Comme nts CHOLESTEROL (test code = 2210) 149 MG/DL TRIGLYCERIDES (test code = 2232) 250 MG/DL HDL CHOLESTEROL (test code = 2220) 50 MG/DL CALC LDL CHOL (test code = 2237) 70 MG/DL RISK RATIO LDL/HDL (test cod e = 2238) 1.40 RATIO Rock ReynagaCBC W/AUTO [id number] 00:00:00* Test Item Value Reference Range Interpretation Comme nts WBC (test code = 1001) 5.2 K/UL RBC (test code = 1002) 4.57 M/UL HEMOGLOBIN (test code = 1003) 13.6 G/DL HEMATOCRIT (test code = 1004) 41.2 % MCV (test code = 1005) 90.2 fL MCH (test code = 1006) 29.8 PG MCHC (test code = 1007) 33.0 G/DL RDW (test code = 1038) 14.5 % NEUTROPHILS (test code = 1008) 45.8 % LYMPHOCYTES (test code = 1010) 46.6 % MONOCYTES (test code = 1011) 5.8 % EOSINOPHILS (test code = 1012) 1.2 % BASOPHILS (test code = 1013) 0.6 % IMMATURE GRANULOCYTES (test code = 1036) 0.0 % NUCLEATED RBCS (test code = 1065) 0.0 /100WBC'S PLATELET COUNT (test code = 1015) 176 K/UL ABSOLUTE NEUTROPHILS (test c ode = 1066) 2.38 K/UL ABSOLUTE LYMPHOCYTES (test c ode = 1067) 2.42 K/UL ABSOLUTE MONOCYTES (test cod e = 1068) 0.30 K/UL ABSOLUTE EOSINOPHILS (test c ode = 1040) 0.06 K/UL ABSOLUTE BASOPHILS (test cod e = 1069) 0.03 K/UL ABS IMMATURE GRANULOCYTES (t est code = 1020) 0.00 K/UL ABS NUCLEATED RBCS (test cod e = 63347) 0.00 K/UL Rock ReynagaTSH, THIRD [id number] 00:00:00* Test Item Value Reference Range Interpretation Comme [facility] TSH, THIRD GENERATION (test code = 2821) 0.959 UIU/ML Rock ReynagaHEMOGLOBIN [id number] 00:00:00* Test Item Value Reference Range Interpretation Comme nts HEMOGLOBIN A1c (test code = 06059) 5.9 % Rock ReynagaCOMPREHENSIVE METABOLIC [id number] 00:00:00* Test Item Value Reference Range Interpretation Comme nts GLUCOSE (test code = 2217) 117 MG/DL BUN (test code = 2208) 14 MG/DL CREATININE (test code = 2214) 0.67 MG/DL eGFR (2020 CKD-EPI) (test co de = 54669) 96 ML/MIN/1.73 CALC BUN/CREAT (test code = 2235) 21 RATIO SODIUM (test code = 2231) 140 MEQ/L POTASSIUM (test code = 2228) 3.6 MEQ/L CHLORIDE (test code = 2215) 105 MEQ/L CARBON DIOXIDE (test code = 2206) 22 MEQ/L CALCIUM (test code = 2209) 10.1 MG/DL PROTEIN, TOTAL (test code = 2229) 7.1 G/DL ALBUMIN (test code = 2201) 4.3 G/DL CALC GLOBULIN (test code = 2240) 2.8 G/DL CALC A/G RATIO (test code = 2234) 1.5 RATIO BILIRUBIN, TOTAL (test code = 2207) 1.3 MG/DL ALKALINE PHOSPHATASE (test code = 2204) 128 U/L AST (test code = 2218) 30 U/L ALT (test code = 2219) 17 U/L Rock Rondon RonnellLIPID [id number] 00:00:00* Test Item Value Reference Range Interpretation Comme nts CHOLESTEROL (test code = 2210) 149 MG/DL TRIGLYCERIDES (test code = 2232) 250 MG/DL HDL CHOLESTEROL (test code = 2220) 50 MG/DL CALC LDL CHOL (test code = 2237) 70 MG/DL RISK RATIO LDL/HDL (test cod e = 2238) 1.40 RATIO Rock ReynagaCBC W/AUTO [id number] 00:00:00* Test Item Value Reference Range Interpretation Comme nts WBC (test code = 1001) 5.2 K/UL RBC (test code = 1002) 4.57 M/UL HEMOGLOBIN (test code = 1003) 13.6 G/DL HEMATOCRIT (test code = 1004) 41.2 % MCV (test code = 1005) 90.2 fL MCH (test code = 1006) 29.8 PG MCHC (test code = 1007) 33.0 G/DL RDW (test code = 1038) 14.5 % NEUTROPHILS (test code = 1008) 45.8 % LYMPHOCYTES (test code = 1010) 46.6 % MONOCYTES (test code = 1011) 5.8 % EOSINOPHILS (test code = 1012) 1.2 % BASOPHILS (test code = 1013) 0.6 % IMMATURE GRANULOCYTES (test code = 1036) 0.0 % NUCLEATED RBCS (test code = 1065) 0.0 /100WBC'S PLATELET COUNT (test code = 1015) 176 K/UL ABSOLUTE NEUTROPHILS (test c ode = 1066) 2.38 K/UL ABSOLUTE LYMPHOCYTES (test c ode = 1067) 2.42 K/UL ABSOLUTE MONOCYTES (test cod e = 1068) 0.30 K/UL ABSOLUTE EOSINOPHILS (test c ode = 1040) 0.06 K/UL ABSOLUTE BASOPHILS (test cod e = 1069) 0.03 K/UL ABS IMMATURE GRANULOCYTES (t est code = 1020) 0.00 K/UL ABS NUCLEATED RBCS (test cod e = 33691) 0.00 K/UL Rock Rondon RonnellVITAMIN D,1,15-[id number] 00:00:00* Test Item Value Reference Range Interpretation Comme nts CALC LDL CHOL (test code = 58881-9) 99 MG/DL See_Comment [[employer]] The system which generated this result transmitted reference range: <100 MG/DL. The reference range was not used to interpret this result as normal/abnormal. CALC NON-HDL CHOL (test code = 69776-7) 120 MG/DL See_Comment [Automated message] The system which generated this result transmitted reference range: <130 MG/DL. The reference range was not used to interpret this result as normal/abnormal. CHOLESTEROL (test code = 2093-3) 175 MG/DL See_Comment [[employer]] The system which generated this result transmitted reference range: <200 MG/DL. The reference range was not used to interpret this result as normal/abnormal. HDL CHOLESTEROL (test code = 2085-9) 55 MG/DL See_Comment [[employer]] The system which generated this result transmitted reference range: >39 MG/DL. The reference range was not used to interpret this result as normal/abnormal. RISK RATIO LDL/HDL (test code = 07329-0) 1.80 RATIO See_Comment [Automated message] The system which generated this result transmitted reference range: <3.22 RATIO. The reference range was not used to interpret this result as normal/abnormal. TRIGLYCERIDES (test code = 2571-8) 118 MG/DL See_Comment [[employer]] The system which generated this result transmitted reference range: <150 MG/DL. The reference range was not used to interpret this result as normal/abnormal. ANTI-NUCLEAR ANTIBODIES (test code = 41506-4) NEGATIVE NEGATIVE CENTROMERE B ANTIBODY (test code = 8068-9) <0.2 AI See_Comment [Automated message] The system which generated this result transmitted reference range: <1.0 AI. The reference range was not used to interpret this result as normal/abnormal. CHROMATIN ANTIBODY (test code = 84688-2) <0.2 AI See_Comment [Automated message] The system which generated this result transmitted reference range: <1.0 AI. The reference range was not used to interpret this result as normal/abnormal. COMPLEMENT C3 (test code = 4485-9) 143 MG/DL See_Comment [Automated messa ge] The system which generated this result transmitted reference range: 90-180 MG/DL. The reference range was not used to interpret this result as normal/abnormal. COMPLEMENT C4 (test code = 4498-2) 24 MG/DL See_Comment [Automated messa ge] The system which generated this result transmitted reference range: 10-40 MG/DL. The reference range was not used to interpret this result as normal/abnormal. dsDNA ANTIBODY (test code = 5130-0) <1.0 IU/ML SEE BELOW IU/ML Ashley-1 ANTIBODY (test code = 08111-3) <0.2 AI See_Comment [Automated messa ge] The system which generated this result transmitted reference range: <1.0 AI. The reference range was not used to interpret this result as normal/abnormal. RHEUMATOID FACTOR, QUANT (test code = 59831-7) <10 IU/ML See_Comment [Automated messa ge] The system which generated this result transmitted reference range: <14 IU/ML. The reference range was not used to interpret this result as normal/abnormal. RIBOSOMAL P ANTIBODY (test code = 35856-5) <0.2 AI See_Comment [Automated message] The system which generated this result transmitted reference range: <1.0 AI. The reference range was not used to interpret this result as normal/abnormal. GRID MAKER ANTIBODY (test code = 65657-0) <0.2 AI See_Comment [Automated messa ge] The system which generated this result transmitted reference range: <1.0 AI. The reference range was not used to interpret this result as normal/abnormal. SCL-70 ANTIBODY (test code = 53470-2) <0.2 AI See_Comment [Automated messa ge] The system which generated this result transmitted reference range: <1.0 AI. The reference range was not used to interpret this result as normal/abnormal. SJOGREN'S SS-A ANTIBODY (test code = 57769-9) <0.2 AI See_Comment [Automated messa ge] The system which generated this result transmitted reference range: <1.0 AI. The reference range was not used to interpret this result as normal/abnormal. SJOGREN'S SS-B ANTIBODY (test code = 34493-9) <0.2 AI See_Comment [Automated messa ge] The system which generated this result transmitted reference range: <1.0 AI. The reference range was not used to interpret this result as normal/abnormal. ZARAGOZA (Sm) ANTIBODY (test code = 75304-2) <0.2 AI See_Comment [Automated message] The system which generated this result transmitted reference range: <1.0 AI. The reference range was not used to interpret this result as normal/abnormal. THYROID PEROXIDASE AB (test code = 8099-4) <9 IU/ML See_Comment [Automated message] The system which generated this result transmitted reference range: <=34 IU/ML. The reference range was not used to interpret this result as normal/abnormal. SEDIMENTATION RATE (test code = 4537-7) 16 MM/HOUR See_Comment [Automated message] The system which generated this result transmitted reference range: 0-20 MM/HOUR. The reference range was not used to interpret this result as normal/abnormal. URIC ACID (test code = 2501-5) 2.8 MG/DL See_Comment [[employer]] The system which generated this result transmitted reference range: 2.7-6.1 MG/DL. The reference range was not used to interpret this result as normal/abnormal. HIGH SENSITIVITY CRP (test code = 68919-3) 0.8 MG/L SEE BELOW MG/L HLA-B27 BY FLOW RFLX (test code = 12728-0) NOT PRESENT SEE BELOW HEMATOCRIT (test code = 25012-7) 43.0 % See_Comment [[employer]] The system which generated this result transmitted reference range: 34.0-45.0 %. The reference range was not used to interpret this result as normal/abnormal. HEMOGLOBIN (test code = 718-7) 14.2 G/DL See_Comment [Automated messa ge] The system which generated this result transmitted reference range: 11.5-15.5 G/DL. The reference range was not used to interpret this result as normal/abnormal. MCH (test code = 35404-4) 30.2 PG See_Comment [Automated messa ge] The system which generated this result transmitted reference range: 25.0-33.0 PG. The reference range was not used to interpret this result as normal/abnormal. MCHC (test code = 34482-9) 33.0 G/DL See_Comment [Automated messa ge] The system which generated this result transmitted reference range: 31.0-36.0 G/DL. The reference range was not used to interpret this result as normal/abnormal. MCV (test code = 51406-3) 91.5 fL See_Comment [Automated messa ge] The system which generated this result transmitted reference range: 80.0-99.0 fL. The reference range was not used to interpret this result as normal/abnormal. PLATELET COUNT (test code = 54109-7) 175 K/UL See_Comment [Automated messa ge] The system which generated this result transmitted reference range: 130-400 K/UL. The reference range was not used to interpret this result as normal/abnormal. RBC (test code = 18890-2) 4.70 M/UL See_Comment [Automated messa ge] The system which generated this result transmitted reference range: 3.80-5.40 M/UL. The reference range was not used to interpret this result as normal/abnormal. WBC (test code = 10995-2) 5.3 K/UL See_Comment [Automated messa ge] The system which generated this result transmitted reference range: 3.5-11.0 K/UL. The reference range was not used to interpret this result as normal/abnormal. HEMOGLOBIN A1c (test code = 4548-4) 6.1 % See_Comment H [Automated messa ge] The system which generated this result transmitted reference range: 4.2-5.6 %. The reference range was not used to interpret this result as normal/abnormal. VITAMIN D,1,25-DIHYDROXY (test code = 1649-3) 76.8 PG/ML See_Comment [Automated [employer]] The system which generated this result transmitted reference range: 20.0-82.0 PG/ML. The reference range was not used to interpret this result as normal/abnormal. STREP A [id number] 00:00:00ResultFL TIME OR (NON-REPORTABLE)2024-03-08 14:07:07These images do not require a Radiology diagnostic report.[facility] GLUCOSE (AUTOMATED)2024-03-08 12:30:03* Test Item Value Reference Range Interpretation Comme nts POCT GLU (test code = 1418922273) 64 mg/dL 70-110 L Lab Interpretation (test cod e = 25635-4) Abnormal [facility] GLUCOSE (AUTOMATED)2024-03-08 12:30:03* Test Item Value Reference Range Interpretation Comme nts POCT GLU (test code = 4909151148) 64 mg/dL 70-110 L Lab Interpretation (test cod e = 62110-7) Abnormal [facility] TIME OR (NON-REPORTABLE)2024-02-09 14:36:46 These images do not require a Radiology diagnostic report.[facility] TIME OR (NON-REPORTABLE)2024-02-09 14:36:46These images do not require a Radiology diagnostic report.[facility] GLUCOSE (AUTOMATED)2024-02-09 12:33:40* Test Item Value Reference Range Interpretation Comme nts POCT GLU (test code = 0678323748) 98 mg/dL 70-110 Lab Interpretation (test cod e = 45616-2) Normal [facility] GLUCOSE (AUTOMATED)2024-02-09 12:33:40* Test Item Value Reference Range Interpretation Comme nts POCT GLU (test code = 0354819386) 98 mg/dL 70-110 Lab Interpretation (test cod e = 83220-3) Normal [facility] TIME OR (NON-REPORTABLE)2023-12-01 13:34:56 These images do not require a Radiology diagnostic report.[facility] TIME OR (NON-REPORTABLE)2023-12-01 13:34:56These images do not require a Radiology diagnostic report.[facility] GLUCOSE (AUTOMATED)2023-12-01 12:29:33* Test Item Value Reference Range Interpretation Comme nts POCT GLU (test code = 0801742472) 85 mg/dL 70-110 Lab Interpretation (test cod e = 96104-9) Normal [facility] GLUCOSE (AUTOMATED)2023-12-01 12:29:33* Test Item Value Reference Range Interpretation Comme nts POCT GLU (test code = 5421913302) 85 mg/dL 70-110 Lab Interpretation (test cod e = 52721-7) Normal [facility] TIME OR (NON-REPORTABLE)2023-10-20 14:29:37 These images do not require a Radiology diagnostic report.[facility] TIME OR (NON-REPORTABLE)2023-10-20 14:29:37These images do not require a Radiology diagnostic report.[facility] GLUCOSE (AUTOMATED)2023-10-20 13:08:39* Test Item Value Reference Range Interpretation Comme nts POCT GLU (test code = 9569377216) 81 mg/dL 70-110 Lab Interpretation (test cod e = 01402-3) Normal [facility] GLUCOSE (AUTOMATED)2023-10-20 13:08:39* Test Item Value Reference Range Interpretation Comme nts POCT GLU (test code = 2565907015) 81 mg/dL 70-110 Lab Interpretation (test cod e = 45183-5) [facility] [id number] 05:35:44* Test Item Value Reference Range Interpretation Comme nts GLUCOSE (test code = 2217) 108 MG/DL 70-99 H BUN (test code = 2208) 15 MG/DL 8-23 CREATININE (test code = 2214) 0.73 MG/DL 0.60-1.30 eGFR (2020 CKD-EPI) (test code = 87415) 91 ML/MIN/1.73 >60 CALC BUN/CREAT (test code = 2235) 21 RATIO 6-28 SODIUM (test code = 223) 142 MEQ/L 133-146 POTASSIUM (test code = 2228) 4.1 MEQ/L 3.5-5.4 CHLORIDE (test code = 2215) 106 MEQ/L 95-107 CARBON DIOXIDE (test code = 2206) 23 MEQ/L 19-31 CALCIUM (test code = 2209) 9.5 MG/DL 8.5-10.5 PROTEIN, TOTAL (test code = 2229) 6.8 G/DL 6.1-8.3 ALBUMIN (test code = 2201) 4.5 G/DL 3.5-5.2 CALC GLOBULIN (test code = 2240) 2.3 G/DL 1.9-3.7 CALC A/G RATIO (test code = 2234) 2.0 RATIO 1.0-2.6 BILIRUBIN, TOTAL (test code = 2207) 1.3 MG/DL <=1.2 H ALKALINE PHOSPHATASE (test code = 2204) 97 U/L 40-142 AST (test code = 2218) 24 U/L 9-40 ALT (test code = 2219) 18 U/L 5-40 UNLESS OTHERWISE INDICATED, ALL TESTING PERFORMED AT [facility] [address] [place] [address] [employer] APPRENTICE: DALLIN RAMOS M.D. CLIA NUMBER [id number] [facility] [place]. [id number] COMPREHENSIVE METABOLIC [id number] 00:00:00* Test Item Value Reference Range Interpretation Comme nts GLUCOSE (test code = 2217) 108 MG/DL BUN (test code = 2208) 15 MG/DL CREATININE (test code = 2214) 0.73 MG/DL eGFR (2020 CKD-EPI) (test co de = 50610) 91 ML/MIN/1.73 CALC BUN/CREAT (test code = [...] code = 2219) 18 U/L [facility] Rondon AustinCOMPREHENSIVE METABOLIC [id number] 00:00:00* Test Item Value Reference Range Interpretation Comme nts GLUCOSE (test code = 2217) 108 MG/DL BUN (test code = 2208) 15 MG/DL CREATININE (test code = 2214) 0.73 MG/DL eGFR (2020 CKD-EPI) (test co de = 02843) 91 ML/MIN/1.73 CALC BUN/CREAT (test code = [...] = 2219) 18 U/L Rock ReynagaCOMPREHENSIVE METABOLIC [id number] 00:00:00* Test Item Value Reference Range Interpretation Comme nts GLUCOSE (test code = 2217) 108 MG/DL BUN (test code = 2208) 15 MG/DL CREATININE (test code = 2214) 0.73 MG/DL eGFR (2020 CKD-EPI) (test co de = 23081) 91 ML/MIN/1.73 CALC BUN/CREAT (test code = [...] (test code = 2219) 18 U/L Rock F AspermontCOMPREHENSIVE METABOLIC [id number] 00:00:00* Test Item Value Reference Range Interpretation Comme nts GLUCOSE (test code = 2217) 108 MG/DL BUN (test code = 2208) 15 MG/DL CREATININE (test code = 2214) 0.73 MG/DL eGFR (2020 CKD-EPI) (test co de = 02377) 91 ML/MIN/1.73 CALC BUN/CREAT (test code = [...] code = 2219) 18 U/L Rock Rondon AustinCOMPREHENSIVE METABOLIC [id number] 00:00:00* Test Item Value Reference Range Interpretation Comme nts GLUCOSE (test code = 2217) 108 MG/DL BUN (test code = 2208) 15 MG/DL CREATININE (test code = 2214) 0.73 MG/DL eGFR (2020 CKD-EPI) (test co de = 36014) 91 ML/MIN/1.73 CALC BUN/CREAT (test code = [...] code = 2219) 18 U/L Rock Rondon AspermontFL TIME OR (NON-REPORTABLE)2023-09-22 13:06:02These images do not require a Radiology diagnostic report.[facility] TIME OR (NON-REPORTABLE)2023-09-22 13:06:02These images do not require a Radiology diagnostic report.[facility] GLUCOSE (AUTOMATED)2023-09-22 11:41:59* Test Item Value Reference Range Interpretation Comme nts POCT GLU (test code = 5658413974) 80 mg/dL 70-110 Lab Interpretation (test cod e = 36246-1) Normal [facility] GLUCOSE (AUTOMATED)2023-09-22 11:41:59* Test Item Value Reference Range Interpretation Comme nts POCT GLU (test code = 4449941261) 80 mg/dL 70-110 Lab Interpretation (test cod e = 11792-0) Normal [facility]/NG, NAAT, [id number] 15:33:47* Test Item Value Reference Range Interpretation Comme nts CHLAMYDIA, NAAT, URINE (test code = 45505) NEGATIVE NEGATIVE Testing is perfo rmed with [employer]AS 6800/8800 systems usingreal-time polymerase chain reaction (PCR) method. A negative result does not exclude low level infection, specimensampling error, or collection error. GONORRHEA, NAAT, URINE (test code = 52368) NEGATIVE NEGATIVE Testing is perfo rmed with [employer]Y 6800/8800 systems usingreal-time polymerase chain reaction (PCR) method. A negative result does not exclude low level infection, specimensampling error, or collection error. VAGINAL PATHOGENS DNA [id number] 11:20:33* Test Item Value Reference Range Interpretation Comme nts THUY SPECIES (test code = 93756) NEGATIVE NEGATIVE G. VAGINALIS (test code = 05452) POSITIVE NEGATIVE A T. VAGINALIS (test code = ) NEGATIVE NEGATIVE Note: The [employer] VPIII Microbial Identification Testis a DNA probe test intended for use in the detectionand identification of Thuy species, Gardnerellavaginalis and Trichomonas vaginalis nucleic acid. HEPATITIS PANEL, [id number] 04:22:27* Test Item Value Reference Range Interpretation Comme nts HEPATITIS A IgM (test code = 98283) NON-REACTIVE NON-REACTIVE HEPATITIS B CORE IgM (test code = 4644) NON-REACTIVE NON-REACTIVE HEPATITIS B SURF AG (test code = 2739) NON-REACTIVE NON-REACTIVE HEPATITIS C ANTIBODY (test code = 4675) NON-REACTIVE NON-REACTIVE INTERPRETATION HEPATITIS A: (test code = 2552) (NOTE) Hepatitis A serology shows no evidence of acute hepatitis A. INTERPRETATION HEPATITIS B: (test code = 09702) (NOTE) Hepatitis B serology shows no evidence of acute hepatitis B andno indication of exposure to hepatitis B virus in the previous katerina eight months. INTERPRETATION HEPATITIS C: (test code = 20061) (NOTE) Hepatitis C serology shows no evidence of exposure to hepatitisC virus at this time. It can take up to 12 months after exposure tothe hepatitis C virus for antibodies to become detectable in the blood in certain patients. HIV 1/2 4TH GEN, RFLX [id number] 04:22:27* Test Item Value Reference Range Interpretation Comme nts HIV 1/2 4TH GEN, RFLX CONF ( test code = 3514) NON-REACTIVE NON-REACTIVE RPR REFLEX TO T. PALLIDUM - [id number] 03:40:38* Test Item Value Reference Range Interpretation Comme nts RPR (test code = 07250) NON-REACTIVE NON-REACTIVE RPR TITER (test code = 3500) NOT INDIC. TITER NOT INDIC. UNLESS OTHERWISE INDICATED, ALL TESTING PERFORMED AT [facility] [address] [place] [address] [employer] APPRENTICE: DALLIN RAMOS M.D. IA NUMBER [id number] [facility] [place]. [id number] ACUTE HEPATITIS [id number] 00:00:00* Test Item Value Reference Range Interpretation Comme nts HEPATITIS A IgM (test code = 91533) NON-REACTIVE HEPATITIS B CORE IgM (test c ode = 4644) NON-REACTIVE HEPATITIS B SURF AG (test co de = 2739) NON-REACTIVE HEPATITIS C ANTIBODY (test c ode = 4675) NON-REACTIVE INTERPRETATION HEPATITIS A: (test code = 2552) (NOTE) INTERPRETATION HEPATITIS B: (test code = 62691) (NOTE) INTERPRETATION HEPATITIS C: (test code = 39367) (NOTE) Rock Rondon AustinCT/NG, TMA, [id number] 00:00:00* Test Item Value Reference Range Interpretation Comme nts CHLAMYDIA, NAAT, URINE (test code = 98273) NEGATIVE GONORRHEA, NAAT, URINE (test code = 05826) NEGATIVE Rock Rondon AustinRPR REFLEX TO T. PALLIDUM - [id number] 00:00:00* Test Item Value Reference Range Interpretation Comme nts RPR (test code = 12731) NON-REACTIVE RPR TITER (test code = 3500) NOT INDIC. TITER Rock ReynagaVAGINAL PATHOGENS DNA [id number] 00:00:00* Test Item Value Reference Range Interpretation Comme nts THUY SPECIES (test code = 11327) NEGATIVE G. VAGINALIS (test code = 14818) POSITIVE T. VAGINALIS (test code = 48990) NEGATIVE Rock Rondon AustinHIV 1/2 4TH GEN, RFLX [id number] 00:00:00* Test Item Value Reference Range Interpretation Comme nts HIV 1/2 4TH GEN, RFLX CONF ( test code = 3514) NON-REACTIVE [facility] Rondon AustinACUTE HEPATITIS [id number] 00:00:00* Test Item Value Reference Range Interpretation Comme nts HEPATITIS A IgM (test code = 13410) NON-REACTIVE HEPATITIS B CORE IgM (test c ode = 4644) NON-REACTIVE HEPATITIS B SURF AG (test co de = 2739) NON-REACTIVE HEPATITIS C ANTIBODY (test c ode = 4675) NON-REACTIVE INTERPRETATION HEPATITIS A: (test code = 2552) (NOTE) INTERPRETATION HEPATITIS B: (test code = 88950) (NOTE) INTERPRETATION HEPATITIS C: (test code = 63819) (NOTE) Rock Rondon AustinCT/NG, TMA, [id number] 00:00:00* Test Item Value Reference Range Interpretation Comme nts CHLAMYDIA, NAAT, URINE (test code = 56778) NEGATIVE GONORRHEA, NAAT, URINE (test code = 34915) NEGATIVE Rock Rondon AustinRPR REFLEX TO T. PALLIDUM - [id number] 00:00:00* Test Item Value Reference Range Interpretation Comme nts RPR (test code = 33710) NON-REACTIVE RPR TITER (test code = 3500) NOT INDIC. TITER Rock ReynagaVAGINAL PATHOGENS DNA [id number] 00:00:00* Test Item Value Reference Range Interpretation Comme nts THUY SPECIES (test code = 00611) NEGATIVE G. VAGINALIS (test code = 12379) POSITIVE T. VAGINALIS (test code = 25030) NEGATIVE Rock ReynagaHIV 1/2 4TH GEN, RFLX [id number] 00:00:00* Test Item Value Reference Range Interpretation Comme nts HIV 1/2 4TH GEN, RFLX CONF ( test code = 3514) NON-REACTIVE Rock ReynagaACUTE HEPATITIS [id number] 00:00:00* Test Item Value Reference Range Interpretation Comme nts HEPATITIS A IgM (test code = 94836) NON-REACTIVE HEPATITIS B CORE IgM (test c ode = 4644) NON-REACTIVE HEPATITIS B SURF AG (test co de = 2739) NON-REACTIVE HEPATITIS C ANTIBODY (test c ode = 4675) NON-REACTIVE INTERPRETATION HEPATITIS A: (test code = 2552) (NOTE) INTERPRETATION HEPATITIS B: (test code = 08633) (NOTE) INTERPRETATION HEPATITIS C: (test code = 25464) (NOTE) Rock Rondon AustinCT/NG, TMA, [id number] 00:00:00* Test Item Value Reference Range Interpretation Comme nts CHLAMYDIA, NAAT, URINE (test code = 97772) NEGATIVE GONORRHEA, NAAT, URINE (test code = 00185) NEGATIVE Rock Rondon AustinRPR REFLEX TO T. PALLIDUM - [id number] 00:00:00* Test Item Value Reference Range Interpretation Comme nts RPR (test code = 86895) NON-REACTIVE RPR TITER (test code = 3500) NOT INDIC. TITER Rock Rondon AustinVAGINAL PATHOGENS DNA [id number] 00:00:00* Test Item Value Reference Range Interpretation Comme nts THUY SPECIES (test code = ) NEGATIVE G. VAGINALIS (test code = 83026) POSITIVE T. VAGINALIS (test code = 03803) NEGATIVE Rock Rondon AustinHIV 1/2 4TH GEN, RFLX [id number] 00:00:00* Test Item Value Reference Range Interpretation Comme nts HIV 1/2 4TH GEN, RFLX CONF ( test code = 3514) NON-REACTIVE Rock ReynagaACUTE HEPATITIS [id number] 00:00:00* Test Item Value Reference Range Interpretation Comme nts HEPATITIS A IgM (test code = 46146) NON-REACTIVE HEPATITIS B CORE IgM (test c ode = 4644) NON-REACTIVE HEPATITIS B SURF AG (test co de = 2739) NON-REACTIVE HEPATITIS C ANTIBODY (test c ode = 4675) NON-REACTIVE INTERPRETATION HEPATITIS A: (test code = 2552) (NOTE) INTERPRETATION HEPATITIS B: (test code = 84167) (NOTE) INTERPRETATION HEPATITIS C: (test code = 74838) (NOTE) Rock Rondon AustinCT/NG, TMA, [id number] 00:00:00* Test Item Value Reference Range Interpretation Comme nts CHLAMYDIA, NAAT, URINE (test code = 20075) NEGATIVE GONORRHEA, NAAT, URINE (test code = 25625) NEGATIVE Rock Rondon AustinRPR REFLEX TO T. PALLIDUM - [id number] 00:00:00* Test Item Value Reference Range Interpretation Comme nts RPR (test code = 39885) NON-REACTIVE RPR TITER (test code = 3500) NOT INDIC. TITER Rock Rondon AustinVAGINAL PATHOGENS DNA [id number] 00:00:00* Test Item Value Reference Range Interpretation Comme nts THUY SPECIES (test code = ) NEGATIVE G. VAGINALIS (test code = 14235) POSITIVE T. VAGINALIS (test code = 56066) NEGATIVE Rock Rondon AustinHIV 1/2 4TH GEN, RFLX [id number] 00:00:00* Test Item Value Reference Range Interpretation Comme nts HIV 1/2 4TH GEN, RFLX CONF ( test code = 3514) NON-REACTIVE Rock ReynagaACUTE HEPATITIS [id number] 00:00:00* Test Item Value Reference Range Interpretation Comme nts HEPATITIS A IgM (test code = 04420) NON-REACTIVE HEPATITIS B CORE IgM (test c ode = 4644) NON-REACTIVE HEPATITIS B SURF AG (test co de = 2739) NON-REACTIVE HEPATITIS C ANTIBODY (test c ode = 4627) NON-REACTIVE INTERPRETATION HEPATITIS A: (test code = 2552) (NOTE) INTERPRETATION HEPATITIS B: (test code = 61048) (NOTE) INTERPRETATION HEPATITIS C: (test code = 39129) (NOTE) Rock ReynagaCT/NG, TMA, [id number] 00:00:00* Test Item Value Reference Range Interpretation Comme nts CHLAMYDIA, NAAT, URINE (test code = 64841) NEGATIVE GONORRHEA, NAAT, URINE (test code = 62225) NEGATIVE Rock ReynagaRPR REFLEX TO T. PALLIDUM - [id number] 00:00:00* Test Item Value Reference Range Interpretation Comme nts RPR (test code = 69068) NON-REACTIVE RPR TITER (test code = 3500) NOT INDIC. TITER Rock ReynagaVAGINAL PATHOGENS DNA [id number] 00:00:00* Test Item Value Reference Range Interpretation Comme nts THUY SPECIES (test code = 02570) NEGATIVE G. VAGINALIS (test code = 05985) POSITIVE T. VAGINALIS (test code = 15522) NEGATIVE Rock ReynagaHIV 1/2 4TH GEN, RFLX [id number] 00:00:00* Test Item Value Reference Range Interpretation Comme nts HIV 1/2 4TH GEN, RFLX CONF ( test code = 3514) NON-REACTIVE Rock ReynagaFL TIME OR (NON-REPORTABLE)2023-07-21 15:06:50These images do not require a Radiology diagnostic report.[facility] GLUCOSE (AUTOMATED)2023-07-21 13:38:50* Test Item Value Reference Range Interpretation Comme nts POCT GLU (test code = 5278623212) 81 mg/dL 70-110 Lab Interpretation (test cod e = 21833-9) Normal [facility] GLUCOSE (AUTOMATED)2023-07-21 13:38:50* Test Item Value Reference Range Interpretation Comme [facility] POCT GLU (test code = 6990035437) 81 mg/dL 70-110 Lab Interpretation (test cod e = 71650-8) Normal [facility] with [id number] 16:59:58* Test Item Value Reference Range Interpretation Comme [facility] WBC (test code = 6690-2) 5.06 See_Comment [[employer]] The system which generated this result transmitted reference range: 4.30 - 11.10 10*3/?L. The reference range was not used to interpret this result as normal/abnormal. RBC (test code = 789-8) 4.49 See_Comment [[employer]] The system which generated this result [...] 32.8 g/dL 31.6-35.1 RDW-SD (test code = 43349-4) 46.1 fL 39.0-49.9 RDW-CV (test code = 788-0) 14.1 % 12.0-15.5 PLT (test code = 777-3) 168 See_Comment [[employer]] The system which generated this result transmitted reference range: 166 - 358 10*3/?L. The reference range was not used to interpret this result as normal/abnormal. MPV (test code = 55114-1) 10.2 fL 9.5-12.9 NRBC/100 WBC (test code = 2611813830) 0.0 See_Comment [Automated [employer]] The system which generated this result transmitted reference range: 0.0 - 10.0 /100 WBCs. The reference range was not used to interpret this result as normal/abnormal. NRBC x10^3 (test code = 7054452973) See_Comment [Automated messa ge] The system which generated this result transmitted reference range: 10*3/?L. The reference range was not used to interpret this result as normal/abnormal. GRAN MAT (NEUT) % (test code = 770-8) 47.4 % IMM GRAN % (test code = 7060073341) 0.00 % LYMPH % (test code = 736-9) 44.7 % MONO % (test code = 5905-5) 5.5 % EOS % (test code = 713-8) 2.0 % BASO % (test code = 706-2) 0.4 % GRAN MAT x10^3(ANC) (test code = 8810817466) 2.40 10*3/uL 1.88-7.09 IMM GRAN x10^3 (test code = 5759827864) 0.00-0.06 LYMPH x10^3 (test code = 731-0) 2.26 10*3/uL 1.32-3.29 MONO x10^3 (test code = 742-7) 0.28 10*3/uL 0.33-0.92 L EOS x10^3 (test code = 711-2) 0.10 10*3/uL 0.03-0.39 BASO x10^3 (test code = 704-7) 0.01-0.07 Lab Interpretation (test code = 94592-1) Abnormal [facility] W/AUTO [id number] 00:00:00* Test Item Value Reference Range Interpretation Comme nts NUCLEATED RBCS (test code = 07642-2) 0.0 /100 WBC'S See_Comment [Automated messa ge] The system which generated this result transmitted reference range: 0.0 /100 WBC'S. The reference range was not used to interpret this result as normal/abnormal. ABSOLUTE EOSINOPHILS (test code = 54226-5) 0.08 K/UL See_Comment [Automated messa ge] The system which generated this result transmitted reference range: 0.00-0.50 K/UL. The reference range was not used to interpret this result as normal/abnormal. ABSOLUTE LYMPHOCYTES (test code = 95680-8) 2.45 K/UL See_Comment [Automated messa ge] The system which generated this result transmitted reference range: 1.00-4.00 K/UL. The reference range was not used to interpret this result as normal/abnormal. ABSOLUTE MONOCYTES (test code = 70269-7) 0.38 K/UL See_Comment [Automated messa ge] The system which generated this result transmitted reference range: 0.20-1.00 K/UL. The reference range was not used to interpret this result as normal/abnormal. ABSOLUTE NEUTROPHILS (test code = 41432-3) 2.09 K/UL See_Comment [Automated messa ge] The system which generated this result transmitted reference range: 1.50-7.50 K/UL. The reference range was not used to interpret this result as normal/abnormal. BASOPHILS (test code = 15582-2) 0.4 % EOSINOPHILS (test code = 48818-4) 1.6 % HEMATOCRIT (test code = 26607-3) 39.9 % See_Comment [Automated messa ge] The [...] result as normal/abnormal. LYMPHOCYTES (test code = 53692-1) 48.8 % MCH (test code = 12059-2) 29.7 PG See_Comment [Automated messa ge] The system which generated this result transmitted reference range: 25.0-33.0 PG. The reference range was not used to interpret this result as normal/abnormal. MCHC (test code = 79490-4) 33.3 G/DL See_Comment [Automated messa ge] The system which generated this result transmitted reference range: 31.0-36.0 G/DL. The reference range was not used to interpret this result as normal/abnormal. MCV (test code = 54082-9) 89.1 fL See_Comment [Automated messa ge] The system which generated this result transmitted reference range: 80.0-99.0 fL. The reference range was not used to interpret this result as normal/abnormal. MONOCYTES (test code = 37781-2) 7.6 % NEUTROPHILS (test code = 43346-2) 41.6 % PLATELET COUNT (test code = 06163-0) 185 K/UL See_Comment [[employer]] The system which generated this result transmitted reference range: 130-400 K/UL. The reference range was not used to interpret this result as normal/abnormal. RBC (test code = 79172-0) 4.48 M/UL See_Comment [[employer]] The system which generated this result transmitted reference range: 3.80-5.40 M/UL. The reference range was not used to interpret this result as normal/abnormal. RDW (test code = 55028-8) 13.6 % See_Comment [[employer]] The system which generated this result transmitted reference range: 11.5-15.0 %. The reference range was not used to interpret this result as normal/abnormal. WBC (test code = 56470-8) 5.0 K/UL See_Comment [[employer]] The system which generated this result transmitted reference range: 3.5-11.0 K/UL. The reference range was not used to interpret this result as normal/abnormal. POCT URINALYSIS W/O SPECIFIC [id number] 18:10:00* Test Item Value Reference Range Interpretation [...] = 3257) 5+ Negative - Negati ve [facility] URINALYSIS W/O SPECIFIC [id number] 18:10:00* Test Item Value Reference Range Interpretation [...] = 3257) 5+ Negative - Negati ve St. [facility] SPECIFIC [id number] 18:10:00* Test Item Value Reference Range Interpretation [...] = 3257) 5+ Negative - Negati ve [facility] W/AUTO [id number] 00:00:00* Test Item Value Reference Range Interpretation Comme nts NUCLEATED RBCS (test code = 18728-5) 0.0 /100 WBC'S See_Comment [Automated messa ge] The system which generated this result transmitted reference range: 0.0 /100 WBC'S. The reference range was not used to interpret this result as normal/abnormal. ABSOLUTE EOSINOPHILS (test code = 45006-5) 0.11 K/UL See_Comment [Automated messa ge] The system which generated this result transmitted reference range: 0.00-0.50 K/UL. The reference range was not used to interpret this result as normal/abnormal. ABSOLUTE LYMPHOCYTES (test code = 19061-4) 2.85 K/UL See_Comment [Automated messa ge] The system which generated this result transmitted reference range: 1.00-4.00 K/UL. The reference range was not used to interpret this result as normal/abnormal. ABSOLUTE MONOCYTES (test code = 57618-2) 0.44 K/UL See_Comment [Automated messa ge] The system which generated this result transmitted reference range: 0.20-1.00 K/UL. The reference range was not used to interpret this result as normal/abnormal. ABSOLUTE NEUTROPHILS (test code = 22938-9) 3.33 K/UL See_Comment [Automated messa ge] The system which generated this result transmitted reference range: 1.50-7.50 K/UL. The reference range was not used to interpret this result as normal/abnormal. BASOPHILS (test code = 87629-6) 0.3 % EOSINOPHILS (test code = 05830-7) 1.6 % HEMATOCRIT (test code = 16998-4) 39.9 % See_Comment [Automated messa ge] The [...] result as normal/abnormal. LYMPHOCYTES (test code = 80817-3) 42.2 % MCH (test code = 42578-5) 31.4 PG See_Comment [Automated messa ge] The system which generated this result transmitted reference range: 25.0-33.0 PG. The reference range was not used to interpret this result as normal/abnormal. MCHC (test code = 77903-7) 34.3 G/DL See_Comment [Automated messa ge] The system which generated this result transmitted reference range: 31.0-36.0 G/DL. The reference range was not used to interpret this result as normal/abnormal. MCV (test code = 46947-8) 91.3 fL See_Comment [Automated messa ge] The system which generated this result transmitted reference range: 80.0-99.0 fL. The reference range was not used to interpret this result as normal/abnormal. MONOCYTES (test code = 31304-7) 6.5 % NEUTROPHILS (test code = 21242-0) 49.3 % PLATELET COUNT (test code = 45301-5) 163 K/UL See_Comment [Automated messa ge] The system which generated this result transmitted reference range: 130-400 K/UL. The reference range was not used to interpret this result as normal/abnormal. RBC (test code = 46957-7) 4.37 M/UL See_Comment [Automated messa ge] The system which generated this result transmitted reference range: 3.80-5.40 M/UL. The reference range was not used to interpret this result as normal/abnormal. RDW (test code = 67819-0) 13.8 % See_Comment [Automated messa ge] The system which generated this result transmitted reference range: 11.5-15.0 %. The reference range was not used to interpret this result as normal/abnormal. WBC (test code = 42592-2) 6.8 K/UL See_Comment [Automated messa ge] The system which generated this result transmitted reference range: 3.5-11.0 K/UL. The reference range was not used to interpret this result as normal/abnormal. CBC W/AUTO [id number] 00:00:00* Test Item Value Reference Range Interpretation Comme nts NUCLEATED RBCS (test code = 77898-7) 0.0 /100 WBC'S See_Comment [Automated messa ge] The system which generated this result transmitted reference range: 0.0 /100 WBC'S. The reference range was not used to interpret this result as normal/abnormal. ABSOLUTE EOSINOPHILS (test code = 08962-3) 0.00 K/UL See_Comment [Automated messa ge] The system which generated this result transmitted reference range: 0.00-0.50 K/UL. The reference range was not used to interpret this result as normal/abnormal. ABSOLUTE LYMPHOCYTES (test code = 41917-7) 2.23 K/UL See_Comment [Automated messa ge] The system which generated this result transmitted reference range: 1.00-4.00 K/UL. The reference range was not used to interpret this result as normal/abnormal. ABSOLUTE MONOCYTES (test code = 78758-3) 0.48 K/UL See_Comment [Automated messa ge] The system which generated this result transmitted reference range: 0.20-1.00 K/UL. The reference range was not used to interpret this result as normal/abnormal. ABSOLUTE NEUTROPHILS (test code = 68793-5) 7.20 K/UL See_Comment [Automated messa ge] The system which generated this result transmitted reference range: 1.50-7.50 K/UL. The reference range was not used to interpret this result as normal/abnormal. BASOPHILS (test code = 89183-6) 0.1 % EOSINOPHILS (test code = 67128-8) 0.0 % HEMATOCRIT (test code = 08516-6) 43.7 % See_Comment [Automated messa ge] The [...] result as normal/abnormal. LYMPHOCYTES (test code = 50622-4) 22.4 % MCH (test code = 62852-7) 30.6 PG See_Comment [Automated messa ge] The system which generated this result transmitted reference range: 25.0-33.0 PG. The reference range was not used to interpret this result as normal/abnormal. MCHC (test code = 47851-2) 33.6 G/DL See_Comment [Automated messa ge] The system which generated this result transmitted reference range: 31.0-36.0 G/DL. The reference range was not used to interpret this result as normal/abnormal. MCV (test code = 33490-2) 91.0 fL See_Comment [Automated messa ge] The system which generated this result transmitted reference range: 80.0-99.0 fL. The reference range was not used to interpret this result as normal/abnormal. MONOCYTES (test code = 47312-3) 4.8 % NEUTROPHILS (test code = 22584-8) 72.3 % PLATELET COUNT (test code = 78897-1) 208 K/UL See_Comment [Automated messa ge] The system which generated this result transmitted reference range: 130-400 K/UL. The reference range was not used to interpret this result as normal/abnormal. RBC (test code = 45514-2) 4.80 M/UL See_Comment [Automated messa ge] The system which generated this result transmitted reference range: 3.80-5.40 M/UL. The reference range was not used to interpret this result as normal/abnormal. RDW (test code = 02175-2) 14.5 % See_Comment [Automated [employer]] The system which generated this result transmitted reference range: 11.5-15.0 %. The reference range was not used to interpret this result as normal/abnormal. WBC (test code = 83479-6) 10.0 K/UL See_Comment [Automated [employer]] The system which generated this result transmitted reference range: 3.5-11.0 K/UL. The reference range was not used to interpret this result as normal/abnormal. STREP A [id number] 00:00:00ResultPOCT GLUCOSE (AUTOMATED)2022-01-21 12:01:12* Test Item Value Reference Range Interpretation Comme nts POCT GLU (test code = 8054445098) 82 mg/dL 70-110 Lab Interpretation (test cod e = 91215-9) Normal [facility] GLUCOSE (AUTOMATED)2022-01-21 12:01:12* Test Item Value Reference Range Interpretation Comme nts POCT GLU (test code = 1948567656) 82 mg/dL 70-110 Lab Interpretation (test cod e = 11913-4) Normal [facility] GLUCOSE(AGE >30DAYS)2022-01-21 11:50:00* Test Item Value Reference Range Interpretation Comme nts POCT Glu (age>30days) (test code = 3342) 82 mg/dL 70-110 [facility] GLUCOSE(AGE >30DAYS)2022-01-21 11:50:00* Test Item Value Reference Range Interpretation Comme nts POCT Glu (age>30days) (test code = 3342) 82 mg/dL 70-[address] [facility]LAMYD[facility], AMPLIFIED, [id number] 00:00:00* Test Item Value Reference Range Interpretation Comme nts GONORRHEA, NAAT (test code = 38274) NEGATIVE CHLAMYDIA, NAAT (test code = 67686) NEGATIVE Rock F AustinGC AND CHLAMYDIA, AMPLIFIED, [id number] 00:00:00* Test Item Value Reference Range Interpretation Comme nts GONORRHEA, NAAT (test code = 93239) NEGATIVE CHLAMYDIA, NAAT (test code = 98014) NEGATIVE Rock F AustinGC AND CHLAMYDIA, AMPLIFIED, [id number] 00:00:00* Test Item Value Reference Range Interpretation Comme nts GONORRHEA, NAAT (test code = 65747) NEGATIVE CHLAMYDIA, NAAT (test code = 38358) NEGATIVE Rock ReynagaGC AND CHLAMYDIA, AMPLIFIED, [id number] 00:00:00* Test Item Value Reference Range Interpretation Comme nts GONORRHEA, NAAT (test code = 96950) NEGATIVE CHLAMYDIA, NAAT (test code = 55644) NEGATIVE Rock ReynagaGC AND CHLAMYDIA, AMPLIFIED, [id number] 00:00:00* Test Item Value Reference Range Interpretation Comme nts GONORRHEA, NAAT (test code = 57749) NEGATIVE CHLAMYDIA, NAAT (test code = 36334) NEGATIVE GC AND CHLAMYDIA, AMPLIFIED, [id number] 00:00:00* Test Item Value Reference Range Interpretation Comme nts GONORRHEA, NAAT (test code = 12669) NEGATIVE CHLAMYDIA, NAAT (test code = 82819) NEGATIVE Rock [id number] 00:00:00* Test Item Value Reference Range Interpretation Comme nts TSH, THIRD GENERATION (test code = 2821) 1.090 UIU/ML Rock ReynagaCBC W/AUTO [id number] 00:00:00* Test Item Value Reference Range Interpretation [...] ABS NUCLEATED RBCS (test cod e = 42159) 0.00 K/UL Rock ReynagaHIV AB/AG COMBO RFLX [id number] 00:00:00* Test Item Value Reference Range Interpretation Comme nts HIV 1/2 4TH GEN, RFLX CONF ( test code = 3514) NON-REACTIVE Rock ReynagaVAGINAL PATHOGENS DNA [id number] 00:00:00* Test Item Value Reference Range Interpretation Comme nts THUY SPECIES (test code = 05726) NEGATIVE G. VAGINALIS (test code = 65186) POSITIVE T. VAGINALIS (test code = 34701) NEGATIVE Rock [id number] 00:00:00* Test Item Value Reference Range Interpretation Comme nts RPR RESULT (test code = 3501) NON-REACTIVE RPR TITER (test code = 3500) NOT INDIC. TITER Rock [id number] 00:00:00* Test Item Value Reference Range Interpretation Comme nts TSH, THIRD GENERATION (test code = 2821) 1.090 UIU/ML Rock ReynagaCBC W/AUTO [id number] 00:00:00* Test Item Value Reference Range Interpretation [...] ABS NUCLEATED RBCS (test cod e = 84278) 0.00 K/UL Rock ReynagaHIV AB/AG COMBO RFLX [id number] 00:00:00* Test Item Value Reference Range Interpretation Comme nts HIV 1/2 4TH GEN, RFLX CONF ( test code = 3514) NON-REACTIVE Rock ReynagaVAGINAL PATHOGENS DNA [id number] 00:00:00* Test Item Value Reference Range Interpretation Comme nts THUY SPECIES (test code = 49910) NEGATIVE G. VAGINALIS (test code = 96120) POSITIVE T. VAGINALIS (test code = 87169) NEGATIVE Rock Rondon [id number] 00:00:00* Test Item Value Reference Range Interpretation Comme nts RPR RESULT (test code = 3501) NON-REACTIVE RPR TITER (test code = 3500) NOT INDIC. TITER Rock Rondon [id number] 00:00:00* Test Item Value Reference Range Interpretation Comme nts TSH, THIRD GENERATION (test code = 2821) 1.090 UIU/ML Rock ReynagaCBC W/AUTO [id number] 00:00:00* Test Item Value Reference Range Interpretation [...] ABS NUCLEATED RBCS (test cod e = 44902) 0.00 K/UL Rock ReynagaHIV AB/AG COMBO RFLX [id number] 00:00:00* Test Item Value Reference Range Interpretation Comme nts HIV 1/2 4TH GEN, RFLX CONF ( test code = 3514) NON-REACTIVE Rock ReynagaVAGINAL PATHOGENS DNA [id number] 00:00:00* Test Item Value Reference Range Interpretation Comme nts THUY SPECIES (test code = 53161) NEGATIVE G. VAGINALIS (test code = 08305) POSITIVE T. VAGINALIS (test code = 07013) NEGATIVE Rock Rondon [id number] 00:00:00* Test Item Value Reference Range Interpretation Comme nts RPR RESULT (test code = 3501) NON-REACTIVE RPR TITER (test code = 3500) NOT INDIC. TITER Rock [id number] 00:00:00* Test Item Value Reference Range Interpretation Comme nts TSH, THIRD GENERATION (test code = 2821) 1.090 UIU/ML Rock ReynagaCBC W/AUTO [id number] 00:00:00* Test Item Value Reference Range Interpretation [...] ABS NUCLEATED RBCS (test cod e = 91763) 0.00 K/UL Rock ReynagaHIV AB/AG COMBO RFLX [id number] 00:00:00* Test Item Value Reference Range Interpretation Comme nts HIV 1/2 4TH GEN, RFLX CONF ( test code = 3514) NON-REACTIVE Rock ReynagaVAGINAL PATHOGENS DNA [id number] 00:00:00* Test Item Value Reference Range Interpretation Comme nts THUY SPECIES (test code = 32028) NEGATIVE G. VAGINALIS (test code = ) POSITIVE T. VAGINALIS (test code = ) NEGATIVE Rock Rondon [id number] 00:00:00* Test Item Value Reference Range Interpretation Comme nts RPR RESULT (test code = 3501) NON-REACTIVE RPR TITER (test code = 3500) NOT INDIC. TITER Rock ReynagaCBC W/AUTO [id number] 00:00:00* Test Item Value Reference Range Interpretation [...] ABS NUCLEATED RBCS (test cod e = 06531) 0.00 K/UL [id number] 00:00:00* Test Item Value Reference Range Interpretation Comme nts TSH, THIRD GENERATION (test code = 2821) 1.090 UIU/ML Rock ReynagaHIV AB/AG COMBO RFLX [id number] 00:00:00* Test Item Value Reference Range Interpretation Comme nts HIV 1/2 4TH GEN, RFLX CONF ( test code = 3514) NON-REACTIVE CBC W/AUTO [id number] 00:00:00* Test Item Value Reference Range Interpretation [...] ABS NUCLEATED RBCS (test cod e = 87012) 0.00 K/UL Rock F AustinVAGINAL PATHOGENS DNA [id number] 00:00:00* Test Item Value Reference Range Interpretation Comme nts THUY SPECIES (test code = ) NEGATIVE G. VAGINALIS (test code = ) POSITIVE T. VAGINALIS (test code = ) NEGATIVE HIV AB/AG COMBO RFLX [id number] 00:00:00* Test Item Value Reference Range Interpretation Comme nts HIV 1/2 4TH GEN, RFLX CONF ( test code = 3514) NON-REACTIVE Rock F AustinVAGINAL PATHOGENS DNA [id number] 00:00:00* Test Item Value Reference Range Interpretation Comme nts THUY SPECIES (test code = ) NEGATIVE G. VAGINALIS (test code = 73548) POSITIVE T. VAGINALIS (test code = 18471) NEGATIVE Rock [id number] 00:00:00* Test Item Value Reference Range Interpretation Comme nts RPR RESULT (test code = 3501) NON-REACTIVE RPR TITER (test code = 3500) NOT INDIC. TITER [id number] 00:00:00* Test Item Value Reference Range Interpretation Comme nts TSH, THIRD GENERATION (test code = 2821) 1.090 UIU/ML [id number] 00:00:00* Test Item Value Reference Range Interpretation Comme nts RPR RESULT (test code = 3501) NON-REACTIVE RPR TITER (test code = 3500) NOT INDIC. TITER Rock Gomez, [id number] 00:00:00* Test Item Value Reference Range Interpretation Comme nts CULTURE, URINE (test code = 67492) SPECIMEN NUMBER: [id number] Rock Gomez, [id number] 00:00:00* Test Item Value Reference Range Interpretation Comme nts CULTURE, URINE (test code = 73164) SPECIMEN NUMBER: [id number] Rock ReynagaCULTBRODERICK, [id number] 00:00:00* Test Item Value Reference Range Interpretation Comme nts CULTURE, URINE (test code = 48843) SPECIMEN NUMBER: [id number] Rock AllanLTBRODERICK, [id number] 00:00:00* Test Item Value Reference Range Interpretation Comme nts CULTURE, URINE (test code = 13113) SPECIMEN NUMBER: [id number] Rock AllanLTBRODERICK, [id number] 00:00:00* Test Item Value Reference Range Interpretation Comme nts CULTURE, URINE (test code = 98155) SPECIMEN NUMBER: [id number] CULTURE, [id number] 00:00:00* Test Item Value Reference Range Interpretation Comme nts CULTURE, URINE (test code = 84269) SPECIMEN NUMBER: [id number] Rock ReynagaVAGINAL PATHOGENS DNA [id number] 00:00:00* Test Item Value Reference Range Interpretation Comme nts THUY SPECIES (test code = 73834) NEGATIVE G. VAGINALIS (test code = ) POSITIVE T. VAGINALIS (test code = 92628) NEGATIVE Rock Rondon AustinVAGINAL PATHOGENS DNA [id number] 00:00:00* Test Item Value Reference Range Interpretation Comme nts THUY SPECIES (test code = 63699) NEGATIVE G. VAGINALIS (test code = 48610) POSITIVE T. VAGINALIS (test code = 56256) NEGATIVE Rock F AustinVAGINAL PATHOGENS DNA [id number] 00:00:00* Test Item Value Reference Range Interpretation Comme nts THUY SPECIES (test code = 65846) NEGATIVE G. VAGINALIS (test code = 88867) POSITIVE T. VAGINALIS (test code = 84633) NEGATIVE Rock F AustinVAGINAL PATHOGENS DNA [id number] 00:00:00* Test Item Value Reference Range Interpretation Comme nts THUY SPECIES (test code = 69453) NEGATIVE G. VAGINALIS (test code = 92444) POSITIVE T. VAGINALIS (test code = 28452) NEGATIVE Rock F AustinVAGINAL PATHOGENS DNA [id number] 00:00:00* Test Item Value Reference Range Interpretation Comme nts THUY SPECIES (test code = 15852) NEGATIVE G. VAGINALIS (test code = 20965) POSITIVE T. VAGINALIS (test code = 95327) NEGATIVE Rock F AustinVAGINAL PATHOGENS DNA [id number] 00:00:00* Test Item Value Reference Range Interpretation Comme nts THUY SPECIES (test code = 65530) NEGATIVE G. VAGINALIS (test code = 75340) POSITIVE T. VAGINALIS (test code = 17516) NEGATIVE LIPID PROFILE (CORONARY RISK)2018-08-01 08:02:00* Test [...] mg/dL HIGH.........160-189 mg/dL VERY HIGH.........>/= 190 mg/dL [id number] 08:02:00* Test Item Value Reference Range Interpretation [...] LDL (test code = LDL) MG/DL 0-99 [id number] 07:51:00* Test Item Value Reference Range Interpretation Comme nts MAGNESIUM (test code = MAG) 2.0 MG/DL 1.6-2.3 N PROTHROMBIN [id number] 07:37:00* Test Item Value Reference Range Interpretation Comme [facility] PROTHROMBIN TIME PATIENT (test code = PTP) [...] recurrent systemic embolism. 3.0 - 4.5 PTT [id number] 07:37:00* Test Item Value Reference Range Interpretation Comme [facility] PTT ACTIVATED (test code = APTT) 26.7 SECONDS 22.0-33.0 N [id number] 01:26:00* Test Item Value Reference Range Interpretation Comme nts TROPONIN-I (test code = TROPI) < 0.012 NG/ML 0.012-0.033 L HEPATIC FUNCTION [id number] 18:44:00* Test Item Value Reference Range Interpretation [...] ALKP) 77 UNITS/L 38-126 N BASIC METABOLIC [id number] 18:15:00* Test Item Value Reference Range Interpretation [...] code = CA) 8.9 MG/DL 8.4-10.2 N [id number] 18:15:00* Test Item Value Reference Range Interpretation Comme nts TROPONIN-I (test code = TROPI) < 0.012 NG/ML 0.012-0.033 L BASIC METABOLIC [id number] 18:03:00* Test Item Value Reference Range Interpretation [...] code = CA) 8.9 MG/DL 8.4-10.2 N [id number] 18:03:00* Test Item Value Reference Range Interpretation Comme nts TROPONIN-I (test code = TROPI) NG/ML 0.0-0.045 CBC W/O [id number] 17:39:00* Test Item Value Reference Range Interpretation [...] NRBC#) 0.0 K/mm3 0.0-0.1 N CBC W/AUTO [id number] 00:00:00* Test Item Value Reference Range Interpretation [...] 1015) 170 K/UL Rock Rondon RonnellCBC W/AUTO [id number] 00:00:00* Test Item Value Reference Range Interpretation [...] (test code = 1015) 170 K/UL Rock Rnodon [facility] W/AUTO [id number] 00:00:00* Test Item Value Reference Range Interpretation [...] code = 1015) 170 K/UL Rock Rondon [facility] W/AUTO [id number] 00:00:00* Test Item Value Reference Range Interpretation [...] COUNT (test code = 1015) 170 [facility] [id number] 00:00:00* Test Item Value Reference Range Interpretation [...] code = 1015) 170 K/UL CBC W/AUTO [id number] 00:00:00* Test Item Value Reference Range Interpretation [...] code = 1015) 170 K/UL Rock Rondon AustinLIPID [id number] 00:00:00* Test Item Value Reference Range Interpretation Comme nts CHOLESTEROL (test code = 2210) 189 MG/DL TRIGLYCERIDES (test code = 2232) 148 MG/DL HDL CHOLESTEROL (test code = 2220) 70 MG/DL CALC LDL CHOL (test code = 2237) 89 MG/DL RISK RATIO LDL/HDL (test cod e = 2238) 1.28 RATIO Rock Rondon AustinHEMOGLOBIN [id number] 00:00:00* Test Item Value Reference Range Interpretation Comme nts HEMOGLOBIN A1c (test code = 70284) 5.2 % Rock ReynagaTHYROID II PROFILE (T3U, T4, T7, TSH)2016-07-11 00:00:00* Test Item Value Reference Range Interpretation Comme nts T3 UPTAKE (test code = 2817) 27.5 % T4 (THYROXINE) (test code = 2819) 7.1 UG/DL CALCULATED T7 (FTI) (test co de = 2820) 1.95 TSH (test code = 2821) 1.5 UIU/ML Rock ReynagaVITAMIN D, 25 [id number] 00:00:00* Test Item Value Reference Range Interpretation Comme nts VITAMIN D, 25 OH (test code = 4958) 8 NG/ML Rock ReynagaVAGINAL PATHOGENS DNA PANEL [ADDED]2016-07-11 00:00:00* Test Item Value Reference Range Interpretation Comme nts THUY SPECIES (test code = 90904) NEGATIVE G. VAGINALIS (test code = 38752) NEGATIVE T. VAGINALIS (test code = 11258) NEGATIVE Rock ReynagaCOMPREHENSIVE METABOLIC [id number] 00:00:00* Test Item Value Reference Range Interpretation Comme nts GLUCOSE (test code = 2217) 81 MG/DL BUN (test code = 2208) 14 MG/DL CREATININE (test code = 2214) 0.76 MG/DL eGFR AMER. (test cod e = 03430) 100 ML/MIN/1.73 eGFR NON- AMER. (test code = 22387) 86 ML/MIN/1.73 CALC BUN/CREAT (test code = [...] code = 2219) 12 U/L Rock ReynagaLIPID [id number] 00:00:00* Test Item Value Reference Range Interpretation Comme nts CHOLESTEROL (test code = 2210) 189 MG/DL TRIGLYCERIDES (test code = 2232) 148 MG/DL HDL CHOLESTEROL (test code = 2220) 70 MG/DL CALC LDL CHOL (test code = 2237) 89 MG/DL RISK RATIO LDL/HDL (test cod e = 2238) 1.28 RATIO Rock ReynagaHEMOGLOBIN [id number] 00:00:00* Test Item Value Reference Range Interpretation Comme dulce maria HEMOGLOBIN A1c (test code = 94344) 5.2 % Rock ReynagaTHYROID II PROFILE (T3U, T4, T7, TSH)2016-07-11 00:00:00* Test Item Value Reference Range Interpretation Comme dulce maria T3 UPTAKE (test code = 2817) 27.5 % T4 (THYROXINE) (test code = 2819) 7.1 UG/DL CALCULATED T7 (FTI) (test co de = 2820) 1.95 TSH (test code = 2821) 1.5 UIU/ML Rock ReynagaVITAMIN D, 25 [id number] 00:00:00* Test Item Value Reference Range Interpretation Comme dulce maria VITAMIN D, 25 OH (test code = 4958) 8 NG/ML Rock ReynagaVAGINAL PATHOGENS DNA PANEL [ADDED]2016-07-11 00:00:00* Test Item Value Reference Range Interpretation Comme nts THUY SPECIES (test code = 14940) NEGATIVE G. VAGINALIS (test code = 06471) NEGATIVE T. VAGINALIS (test code = 91249) NEGATIVE Rock ReynagaCOMPREHENSIVE METABOLIC [id number] 00:00:00* Test Item Value Reference Range Interpretation Comme nts GLUCOSE (test code = 2217) 81 MG/DL BUN (test code = 2208) 14 MG/DL CREATININE (test code = 2214) 0.76 MG/DL eGFR AMER. (test cod e = 93986) 100 ML/MIN/1.73 eGFR NON- AMER. (test code = 27399) 86 ML/MIN/1.73 CALC BUN/CREAT (test code = [...] code = 2219) 12 U/L Rock ReynagaLIPID [id number] 00:00:00* Test Item Value Reference Range Interpretation Comme nts CHOLESTEROL (test code = 2210) 189 MG/DL TRIGLYCERIDES (test code = 2232) 148 MG/DL HDL CHOLESTEROL (test code = 2220) 70 MG/DL CALC LDL CHOL (test code = 2237) 89 MG/DL RISK RATIO LDL/HDL (test cod e = 2238) 1.28 RATIO Rock ReynagaHEMOGLOBIN [id number] 00:00:00* Test Item Value Reference Range Interpretation Comme nts HEMOGLOBIN A1c (test code = 24383) 5.2 % Rock ReynagaTHYROID II PROFILE (T3U, T4, T7, TSH)2016-07-11 00:00:00* Test Item Value Reference Range Interpretation Comme nts T3 UPTAKE (test code = 2817) 27.5 % T4 (THYROXINE) (test code = 2819) 7.1 UG/DL CALCULATED T7 (FTI) (test co de = 2820) 1.95 TSH (test code = 2821) 1.5 UIU/ML Rock Nela RonnellVITAMIN D, 25 [id number] 00:00:00* Test Item Value Reference Range Interpretation Comme nts VITAMIN D, 25 OH (test code = 4958) 8 NG/ML Rock Rondon RonnellVAGINAL PATHOGENS DNA PANEL [ADDED]2016-07-11 00:00:00* Test Item Value Reference Range Interpretation Comme nts THUY SPECIES (test code = ) NEGATIVE G. VAGINALIS (test code = ) NEGATIVE T. VAGINALIS (test code = ) NEGATIVE Rock ReynagaCOMPREHENSIVE METABOLIC [id number] 00:00:00* Test Item Value Reference Range Interpretation Comme nts GLUCOSE (test code = 2217) 81 MG/DL BUN (test code = 2208) 14 MG/DL CREATININE (test code = 2214) 0.76 MG/DL eGFR AMER. (test cod e = 73361) 100 ML/MIN/1.73 eGFR NON- AMER. (test code = 15699) 86 ML/MIN/1.73 CALC BUN/CREAT (test code = [...] code = 2219) 12 U/L Rock ReynagaLIPID [id number] 00:00:00* Test Item Value Reference Range Interpretation Comme nts CHOLESTEROL (test code = 2210) 189 MG/DL TRIGLYCERIDES (test code = 2232) 148 MG/DL HDL CHOLESTEROL (test code = 2220) 70 MG/DL CALC LDL CHOL (test code = 2237) 89 MG/DL RISK RATIO LDL/HDL (test cod e = 2238) 1.28 RATIO Rock ReynagaHEMOGLOBIN [id number] 00:00:00* Test Item Value Reference Range Interpretation Comme nts HEMOGLOBIN A1c (test code = 96551) 5.2 % Rock ReynagaTHYROID II PROFILE (T3U, T4, T7, TSH)2016-07-11 00:00:00* Test Item Value Reference Range Interpretation Comme nts T3 UPTAKE (test code = 2817) 27.5 % T4 (THYROXINE) (test code = 2819) 7.1 UG/DL CALCULATED T7 (FTI) (test co de = 2820) 1.95 TSH (test code = 2821) 1.5 UIU/ML Rock ReynagaVITAMIN D, 25 [id number] 00:00:00* Test Item Value Reference Range Interpretation Comme nts VITAMIN D, 25 OH (test code = 4958) 8 NG/ML Rock Rondon AustinVAGINAL PATHOGENS DNA PANEL [ADDED]2016-07-11 00:00:00* Test Item Value Reference Range Interpretation Comme nts THUY SPECIES (test code = 33107) NEGATIVE G. VAGINALIS (test code = ) NEGATIVE T. VAGINALIS (test code = ) NEGATIVE Rock ReynagaCOMPREHENSIVE METABOLIC [id number] 00:00:00* Test Item Value Reference Range Interpretation Comme nts GLUCOSE (test code = 2217) 81 MG/DL BUN (test code = 2208) 14 MG/DL CREATININE (test code = 2214) 0.76 MG/DL eGFR AMER. (test cod e = 67331) 100 ML/MIN/1.73 eGFR NON- AMER. (test code = 15586) 86 ML/MIN/1.73 CALC BUN/CREAT (test code = [...] (test code = 2219) 12 U/L Rock ReynagaHEMOGLOBIN [id number] 00:00:00* Test Item Value Reference Range Interpretation Comme nts HEMOGLOBIN A1c (test code = 38314) 5.2 % LIPID [id number] 00:00:00* Test Item Value Reference Range Interpretation Comme nts CHOLESTEROL (test code = 2210) 189 MG/DL TRIGLYCERIDES (test code = 2232) 148 MG/DL HDL CHOLESTEROL (test code = 2220) 70 MG/DL CALC LDL CHOL (test code = 2237) 89 MG/DL RISK RATIO LDL/HDL (test cod e = 2238) 1.28 RATIO Rock ReynagaTHYROID II PROFILE (T3U, T4, T7, TSH)2016-07-11 00:00:00* Test Item Value Reference Range Interpretation Comme nts T3 UPTAKE (test code = 2817) 27.5 % T4 (THYROXINE) (test code = 2819) 7.1 UG/DL CALCULATED T7 (FTI) (test co de = 2820) 1.95 TSH (test code = 2821) 1.5 UIU/ML VITAMIN D, 25 [id number] 00:00:00* Test Item Value Reference Range Interpretation Comme nts VITAMIN D, 25 OH (test code = 4958) 8 NG/ML VAGINAL PATHOGENS DNA PANEL [ADDED]2016-07-11 00:00:00* Test Item Value Reference Range Interpretation Comme nts THUY SPECIES (test code = 06162) NEGATIVE G. VAGINALIS (test code = 71532) NEGATIVE T. VAGINALIS (test code = 00347) NEGATIVE HEMOGLOBIN [id number] 00:00:00* Test Item Value Reference Range Interpretation Comme nts HEMOGLOBIN A1c (test code = 41180) 5.2 % Rock ReynagaCOMPREHENSIVE METABOLIC [id number] 00:00:00* Test Item Value Reference Range Interpretation Comme nts GLUCOSE (test code = 2217) 81 MG/DL BUN (test code = 2208) 14 MG/DL CREATININE (test code = 2214) 0.76 MG/DL eGFR AMER. (test cod e = 25687) 100 ML/MIN/1.73 eGFR NON- AMER. (test code = 80287) 86 ML/MIN/1.73 CALC BUN/CREAT (test code = [...] ALT (test code = 2219) 12 U/L THYROID II PROFILE (T3U, T4, T7, TSH)2016-07-11 00:00:00* Test Item Value Reference Range Interpretation Comme nts T3 UPTAKE (test code = 2817) 27.5 % T4 (THYROXINE) (test code = 2819) 7.1 UG/DL CALCULATED T7 (FTI) (test co de = 2820) 1.95 TSH (test code = 2821) 1.5 UIU/ML Rock ReynagaVITAMIN D, 25 [id number] 00:00:00* Test Item Value Reference Range Interpretation Comme [facility] VITAMIN D, 25 OH (test code = 4958) 8 NG/ML Rock Nela RonnellVAGINAL PATHOGENS DNA PANEL [ADDED]2016-07-11 00:00:00* Test Item Value Reference Range Interpretation Comme [facility] THUY SPECIES (test code = 80590) NEGATIVE G. VAGINALIS (test code = ) NEGATIVE T. VAGINALIS (test code = ) NEGATIVE Rock Rondon AustinLIPID [id number] 00:00:00* Test Item Value Reference Range Interpretation Comme nts CHOLESTEROL (test code = 2210) 189 MG/DL TRIGLYCERIDES (test code = 2232) 148 MG/DL HDL CHOLESTEROL (test code = 2220) 70 MG/DL CALC LDL CHOL (test code = 2237) 89 MG/DL RISK RATIO LDL/HDL (test cod e = 2238) 1.28 RATIO COMPREHENSIVE METABOLIC [id number] 00:00:00* Test Item Value Reference Range Interpretation Comme nts GLUCOSE (test code = 2217) 81 MG/DL BUN (test code = 2208) 14 MG/DL CREATININE (test code = 2214) 0.76 MG/DL eGFR AMER. (test cod e = 81600) 100 ML/MIN/1.73 eGFR NON- AMER. (test code = 58376) 86 ML/MIN/1.73 CALC BUN/CREAT (test code = [...] = 2219) 12 U/L Rock ReynagaCBC W/AUTO [id number] 00:00:00* Test Item Value Reference Range Interpretation [...] code = 1015) 197 K/UL Rock ReynagaHEMOGLOBIN [id number] 00:00:00* Test Item Value Reference Range Interpretation Comme nts HEMOGLOBIN A1c (test code = 12945) 5.7 % Rock ReynagaCOMPREHENSIVE METABOLIC [id number] 00:00:00* Test Item Value Reference Range Interpretation Comme nts GLUCOSE (test code = 2217) 90 MG/DL BUN (test code = 2208) 19 MG/DL CREATININE (test code = 2214) 0.75 MG/DL eGFR AMER. (test cod e = 76424) 101 ML/MIN/1.73 eGFR NON- AMER. (test code = 46641) 87 ML/MIN/1.73 CALC BUN/CREAT (test code = [...] = 2219) 15 U/L Rock ReynagaCBC W/AUTO [id number] 00:00:00* Test Item Value Reference Range Interpretation [...] code = 1015) 197 K/UL Rock ReynagaHEMOGLOBIN [id number] 00:00:00* Test Item Value Reference Range Interpretation Comme dulce maria HEMOGLOBIN A1c (test code = 49560) 5.7 % Rock ReynagaCOMPREHENSIVE METABOLIC [id number] 00:00:00* Test Item Value Reference Range Interpretation Comme nts GLUCOSE (test code = 2217) 90 MG/DL BUN (test code = 2208) 19 MG/DL CREATININE (test code = 2214) 0.75 MG/DL eGFR AMER. (test cod e = 16446) 101 ML/MIN/1.73 eGFR NON- AMER. (test code = 16386) 87 ML/MIN/1.73 CALC BUN/CREAT (test code = [...] = 2219) 15 U/L Rock ReynagaCBC W/AUTO [id number] 00:00:00* Test Item Value Reference Range Interpretation Comme dulce maria WBC (test code = 1001) 8.6 K/UL [...] code = 1015) 197 K/UL Rock ReynagaHEMOGLOBIN [id number] 00:00:00* Test Item Value Reference Range Interpretation Comme nts HEMOGLOBIN A1c (test code = 69193) 5.7 % Rock ReynagaCOMPREHENSIVE METABOLIC [id number] 00:00:00* Test Item Value Reference Range Interpretation Comme nts GLUCOSE (test code = 2217) 90 MG/DL BUN (test code = 2208) 19 MG/DL CREATININE (test code = 2214) 0.75 MG/DL eGFR AMER. (test cod e = 37955) 101 ML/MIN/1.73 eGFR NON- AMER. (test code = 77716) 87 ML/MIN/1.73 CALC BUN/CREAT (test code = [...] = 2219) 15 U/L Rock ReynagaCBC W/AUTO [id number] 00:00:00* Test Item Value Reference Range Interpretation [...] (test code = 1015) 197 K/UL Rock Rondon AustinHEMOGLOBIN [id number] 00:00:00* Test Item Value Reference Range Interpretation Comme nts HEMOGLOBIN A1c (test code = 48261) 5.7 % Rock Rondon AustinHEMOGLOBIN [id number] 00:00:00* Test Item Value Reference Range Interpretation Comme nts HEMOGLOBIN A1c (test code = 59415) 5.7 % COMPREHENSIVE METABOLIC [id number] 00:00:00* Test Item Value Reference Range Interpretation Comme nts GLUCOSE (test code = 2217) 90 MG/DL BUN (test code = 2208) 19 MG/DL CREATININE (test code = 2214) 0.75 MG/DL eGFR AMER. (test cod e = 19486) 101 ML/MIN/1.73 eGFR NON- AMER. (test code = 33158) 87 ML/MIN/1.73 CALC BUN/CREAT (test code = [...] = 2219) 15 U/L Rock ReynagaCBC W/AUTO [id number] 00:00:00* Test Item Value Reference Range Interpretation [...] code = 1015) 197 K/UL Rock ReynagaHEMOGLOBIN [id number] 00:00:00* Test Item Value Reference Range Interpretation Comme nts HEMOGLOBIN A1c (test code = 80378) 5.7 % Rock ReynagaCOMPREHENSIVE METABOLIC [id number] 00:00:00* Test Item Value Reference Range Interpretation Comme nts GLUCOSE (test code = 2217) 90 MG/DL BUN (test code = 2208) 19 MG/DL CREATININE (test code = 2214) 0.75 MG/DL eGFR AMER. (test cod e = 02866) 101 ML/MIN/1.73 eGFR NON- AMER. (test code = 38979) 87 ML/MIN/1.73 CALC BUN/CREAT (test code = [...] code = 2219) 15 U/L COMPREHENSIVE METABOLIC [id number] 00:00:00* Test Item Value Reference Range Interpretation Comme nts GLUCOSE (test code = 2217) 90 MG/DL BUN (test code = 2208) 19 MG/DL CREATININE (test code = 2214) 0.75 MG/DL eGFR AMER. (test cod e = 09667) 101 ML/MIN/1.73 eGFR NON- AMER. (test code = 67469) 87 ML/MIN/1.73 CALC BUN/CREAT (test code = [...] (test code = 2219) 15 U/L Rock Rondon RonnellCBC W/AUTO [id number] 00:00:00* Test Item Value Reference Range Interpretation [...] code = 1015) 197 K/UL ACUTE HEPATITIS [id number] 00:00:00* Test Item Value Reference Range Interpretation Comme nts HEPATITIS A IgM (test code = 43279) NON-REACTIVE HEPATITIS B CORE IgM (test c ode = 4644) NON-REACTIVE HEPATITIS B SURF AG (test co de = 2739) NON-REACTIVE HEPATITIS C ANTIBODY (test c ode = 4675) NON-REACTIVE INTERPRETATION HEPATITIS A: (test code = 2552) (NOTE) INTERPRETATION HEPATITIS B: (test code = 28243) (NOTE) INTERPRETATION HEPATITIS C: (test code = 15329) (NOTE) [facility] [id number] 00:00:00* Test Item Value Reference Range Interpretation Comme nts HEPATITIS A IgM (test code = 52160) NON-REACTIVE HEPATITIS B CORE IgM (test c ode = 4644) NON-REACTIVE HEPATITIS B SURF AG (test co de = 2739) NON-REACTIVE HEPATITIS C ANTIBODY (test c ode = 4675) NON-REACTIVE INTERPRETATION HEPATITIS A: (test code = 2552) (NOTE) INTERPRETATION HEPATITIS B: (test code = 94480) (NOTE) INTERPRETATION HEPATITIS C: (test code = 77064) (NOTE) Rock ReynagaACUTE HEPATITIS [id number] 00:00:00* Test Item Value Reference Range Interpretation Comme nts HEPATITIS A IgM (test code = 28161) NON-REACTIVE HEPATITIS B CORE IgM (test c ode = 4644) NON-REACTIVE HEPATITIS B SURF AG (test co de = 2739) NON-REACTIVE HEPATITIS C ANTIBODY (test c ode = 4675) NON-REACTIVE INTERPRETATION HEPATITIS A: (test code = 2552) (NOTE) INTERPRETATION HEPATITIS B: (test code = 93909) (NOTE) INTERPRETATION HEPATITIS C: (test code = 86056) (NOTE) Rock ReynagaACUTE HEPATITIS [id number] 00:00:00* Test Item Value Reference Range Interpretation Comme nts HEPATITIS A IgM (test code = 46827) NON-REACTIVE HEPATITIS B CORE IgM (test c ode = 4644) NON-REACTIVE HEPATITIS B SURF AG (test co de = 2739) NON-REACTIVE HEPATITIS C ANTIBODY (test c ode = 4675) NON-REACTIVE INTERPRETATION HEPATITIS A: (test code = 2552) (NOTE) INTERPRETATION HEPATITIS B: (test code = 65130) (NOTE) INTERPRETATION HEPATITIS C: (test code = 59414) (NOTE) Rock ReynagaACUTE HEPATITIS [id number] 00:00:00* Test Item Value Reference Range Interpretation Comme nts HEPATITIS A IgM (test code = 21765) NON-REACTIVE HEPATITIS B CORE IgM (test c ode = 4644) NON-REACTIVE HEPATITIS B SURF AG (test co de = 2739) NON-REACTIVE HEPATITIS C ANTIBODY (test c ode = 4675) NON-REACTIVE INTERPRETATION HEPATITIS A: (test code = 2552) (NOTE) INTERPRETATION HEPATITIS B: (test code = 43077) (NOTE) INTERPRETATION HEPATITIS C: (test code = 29150) (NOTE) ACUTE HEPATITIS [id number] 00:00:00* Test Item Value Reference Range Interpretation Comme nts HEPATITIS A IgM (test code = 02753) NON-REACTIVE HEPATITIS B CORE IgM (test c ode = 4644) NON-REACTIVE HEPATITIS B SURF AG (test co de = 2739) NON-REACTIVE HEPATITIS C ANTIBODY (test c ode = 4675) NON-REACTIVE INTERPRETATION HEPATITIS A: (test code = 2552) (NOTE) INTERPRETATION HEPATITIS B: (test code = 76104) (NOTE) INTERPRETATION HEPATITIS C: (test code = 73568) (NOTE) Rock Rondon [id number] 00:00:00* Test Item Value Reference Range Interpretation Comme nts AMYLASE (test code = 2205) 69 U/L Rock Rondon [id number] 00:00:00* Test Item Value Reference Range Interpretation Comme nts LIPASE (test code = 2058) 16 U/L Rock Rondon [id number] 00:00:00* Test Item Value Reference Range Interpretation Comme nts AMYLASE (test code = 2205) 69 U/L Rock Rondon [id number] 00:00:00* Test Item Value Reference Range Interpretation Comme nts LIPASE (test code = 2058) 16 U/L Rock F [id number] 00:00:00* Test Item Value Reference Range Interpretation Comme nts AMYLASE (test code = 2205) 69 U/L Rock F [id number] 00:00:00* Test Item Value Reference Range Interpretation Comme nts LIPASE (test code = 8) 16 U/L Rock F [id number] 00:00:00* Test Item Value Reference Range Interpretation Comme nts AMYLASE (test code = 2205) 69 U/L Rock F [id number] 00:00:00* Test Item Value Reference Range Interpretation Comme nts LIPASE (test code = 8) 16 U/L Rock F [id number] 00:00:00* Test Item Value Reference Range Interpretation Comme nts AMYLASE (test code = 2205) 69 U/L [id number] 00:00:00* Test Item Value Reference Range Interpretation Comme nts AMYLASE (test code = 2205) 69 U/L Rock F [id number] 00:00:00* Test Item Value Reference Range Interpretation Comme nts LIPASE (test code = 8) 16 U/L [id number] 00:00:00* Test Item Value Reference Range Interpretation Comme nts LIPASE (test code = 8) 16 U/L Rock F [id number] 00:00:00* Test Item Value Reference Range Interpretation Comme nts TSH (test code = 2821) 1.8 UIU/ML Rock F AustinCOMPREHENSIVE METABOLIC [id number] 00:00:00* Test Item Value Reference Range Interpretation Comme nts GLUCOSE (test code = 2217) 116 MG/DL BUN (test code = 2208) 15 MG/DL CREATININE (test code = 2214) 0.64 MG/DL eGFR AMER. (test cod e = 52762) 114 ML/MIN/1.73 eGFR NON- AMER. (test code = 36643) 98 ML/MIN/1.73 CALC BUN/CREAT (test code = [...] code = 2219) 10 U/L Rock ReynagaHEMOGLOBIN [id number] 00:00:00* Test Item Value Reference Range Interpretation Comme dulce maria HEMOGLOBIN A1c (test code = 40446) 5.7 % Rock [id number] 00:00:00* Test Item Value Reference Range Interpretation Comme nts TSH (test code = 2821) 1.8 UIU/ML Rock ReynagaCOMPREHENSIVE METABOLIC [id number] 00:00:00* Test Item Value Reference Range Interpretation Comme nts GLUCOSE (test code = 2217) 116 MG/DL BUN (test code = 2208) 15 MG/DL CREATININE (test code = 2214) 0.64 MG/DL eGFR AMER. (test cod e = 86525) 114 ML/MIN/1.73 eGFR NON- AMER. (test code = 28636) 98 ML/MIN/1.73 CALC BUN/CREAT (test code = [...] code = 2219) 10 U/L Rock ReynagaHEMOGLOBIN [id number] 00:00:00* Test Item Value Reference Range Interpretation Comme nts HEMOGLOBIN A1c (test code = 72620) 5.7 % Rock Rondon [id number] 00:00:00* Test Item Value Reference Range Interpretation Comme nts TSH (test code = 2821) 1.8 UIU/ML Rock ReynagaCOMPREHENSIVE METABOLIC [id number] 00:00:00* Test Item Value Reference Range Interpretation Comme nts GLUCOSE (test code = 2217) 116 MG/DL BUN (test code = 2208) 15 MG/DL CREATININE (test code = 2214) 0.64 MG/DL eGFR AMER. (test cod e = 33961) 114 ML/MIN/1.73 eGFR NON- AMER. (test code = 43041) 98 ML/MIN/1.73 CALC BUN/CREAT (test code = [...] code = 2219) 10 U/L Rock ReynagaHEMOGLOBIN [id number] 00:00:00* Test Item Value Reference Range Interpretation Comme nts HEMOGLOBIN A1c (test code = 01296) 5.7 % Rock Rondon [id number] 00:00:00* Test Item Value Reference Range Interpretation Comme nts TSH (test code = 2821) 1.8 UIU/ML Rock Rondon AustinCOMPREHENSIVE METABOLIC [id number] 00:00:00* Test Item Value Reference Range Interpretation Comme nts GLUCOSE (test code = 2217) 116 MG/DL BUN (test code = 2208) 15 MG/DL CREATININE (test code = 2214) 0.64 MG/DL eGFR AMER. (test cod e = 76422) 114 ML/MIN/1.73 eGFR NON- AMER. (test code = 61293) 98 ML/MIN/1.73 CALC BUN/CREAT (test code = [...] (test code = 2219) 10 U/L Rock Rondon [id number] 00:00:00* Test Item Value Reference Range Interpretation Comme nts TSH (test code = 2821) 1.8 UIU/ML HEMOGLOBIN [id number] 00:00:00* Test Item Value Reference Range Interpretation Comme nts HEMOGLOBIN A1c (test code = 52490) 5.7 % Rock Rondon [id number] 00:00:00* Test Item Value Reference Range Interpretation Comme nts TSH (test code = 2821) 1.8 UIU/ML Rock Rondon AspermontCOMPREHENSIVE METABOLIC [id number] 00:00:00* Test Item Value Reference Range Interpretation Comme nts GLUCOSE (test code = 2217) 116 MG/DL BUN (test code = 2208) 15 MG/DL CREATININE (test code = 2214) 0.64 MG/DL eGFR AMER. (test cod e = 68070) 114 ML/MIN/1.73 eGFR NON- AMER. (test code = 88524) 98 ML/MIN/1.73 CALC BUN/CREAT (test code = [...] (test code = 2219) 10 U/L HEMOGLOBIN [id number] 00:00:00* Test Item Value Reference Range Interpretation Comme nts HEMOGLOBIN A1c (test code = 21745) 5.7 % COMPREHENSIVE METABOLIC [id number] 00:00:00* Test Item Value Reference Range Interpretation Comme nts GLUCOSE (test code = 2217) 116 MG/DL BUN (test code = 2208) 15 MG/DL CREATININE (test code = 2214) 0.64 MG/DL eGFR AMER. (test cod e = 44731) 114 ML/MIN/1.73 eGFR NON- AMER. (test code = 97828) 98 ML/MIN/1.73 CALC BUN/CREAT (test code = [...] (test code = 2219) 10 U/L Rock Rondon AustinHEMOGLOBIN [id number] 00:00:00* Test Item Value Reference Range Interpretation Comme [facility] HEMOGLOBIN A1c (test code = 01895) 5.7 % Rock Rondon AspermontHEMOGLOBIN A1C* Test Item Value Reference Range Interpretation Comme nts A1C (test code = 4548-4) 5.7 POC, COVID 19 Antigen + Flu by SofiaPOC, COVID 19 Antigen + Flu by SofiaPOC, COVID 19 Antigen + Flu by SofiaPOC, COVID 19 Antigen + Flu by Jackie
[2024-06-05 16:49] LABS: Absolute Eosinophils 0.1 K/uL (0-0.5); Absolute Lymphocytes (CBC) 1.5 K/uL (0.7-4.9); Absolute Monocytes 0.5 K/uL (0.1-1.3); Absolute Neutrophil 4.9 K/uL (1.8-8.0); Basophils % 0.4 % (0-1.3); Eosinophils % 0.8 % (0-4.4); Hematocrit 45.4 % (36.0-45.0); Hemoglobin 14.9 g/dL (12.0-15.0); Lymphocytes % 21.8 % (15.3-44.8); MCH 29.4 pg (27.0-35.0); MCHC 32.8 g/dL (32.0-36.0); MCV 89.5 fL (80-100); MPV 8.6 fL (7.6-11.3); Nucleated Red Blood Cells % 0.2 % (0-0); Platelets 139 thou/uL (152-406); RBC Red Blood Cell Count 5.07 M/uL (3.86-4.86)
[2024-06-05 17:05] LABS: Anion Gap 9.6 mEq/L (5.0-15.0); Bilirubin Total 1.2 mg/dL (0.2-1.0); Globulin 4.1 g/dL (2.3-3.5); Potassium 3.6 mEq/L (3.5-5.1); Protein, Total 8.1 g/dL (6.4-8.2)
[2024-06-05] MEDS ORDERED: KETOROLAC 30 MG/ML INJ ONE (17:17)
[2024-06-05] MEDS ORDERED: ONDANSETRON 4 MG/2 ML VIAL ONE (17:17)
--- NOTE | 2024-06-05 17:52 | RAD REPORT ---
EXAMINATION: CT ABDOMEN AND PELVIS WITH CONTRAST CLINICAL INDICATION: ABD PAIN TECHNIQUE: CT abdomen and pelvis was performed, after the administration of IV contrast, as per [facility] protocol. Axial, sagittal and coronal reconstructions were obtained. One or more of the following dose reduction techniques were used: Automated exposure control, adjustment of the mA and k V according to patient size, and iterative reconstruction. Unless otherwise specified, incidental findings do not require dedicated imaging follow-up. COMPARISON: 02/26/2024 FINDINGS: LOWER CHEST: The visualized lung bases are clear. LIVER: Mild fatty liver is present. No focal lesion or biliary dilatation is seen. Cholecystectomy clips. SPLEEN: Normal size. No focal lesion. PANCREAS: No mass, ductal dilation, or dalila-pancreatic fluid. ADRENALS: Normal; no mass. KIDNEYS: Normal size and contour. No hydronephrosis. GASTROINTESTINAL TRACT: No evidence of free air, significant intra-abdominal free fluid, bowel obstru ction or abscess. Mild stool retention throughout the colon. APPENDIX: Normal appendix. LYMPH NODES: No lymphadenopathy. MUSCULOSKELETAL: No acute or suspicious osseous abnormality. ADDITIONAL FINDINGS: None. IMPRESSION: No acute or concerning abnormalities seen in the abdomen or pelvis.
[2024-06-05] MEDS ORDERED: FAMOTIDINE 20 MG/2 ML VIAL IV ONE (17:55)
--- NOTE | 2024-06-05 18:15 | ER ---
Nurse's Notes [facility] Name: Toshia Barone Age: 69 yrs Sex: Female : 1955 Arrival Date: 06/05/2024 Time: 13:39 Bed 11 Private MD: Diagnosis: Upper abdominal pain, unspecified;Nausea with vomiting, unspecified Presentation: 06/05 13:48 Ebola Screen: Patient denies travel to an Ebola-affected area in the 21 days before ll1 illness onset. 13:48 Method Of Arrival: Ambulatory ll1 13:49 Chief complaint: Patient states: N/V/D with upper abdominal pain for 4 days. ll1 Coronavirus screen: Client denies travel out of the [place] in the last 14 days. diarrhea, fatigue, nausea, vomiting. Client presents with at least one sign or symptom that may indicate coronavirus-19. Standard/surgical mask placed on the client. Initial Sepsis Screen: Does the patient meet any 2 criteria? No. Patient's initial sepsis screen is negative. Does the patient have a suspected source of infection? No. Patient's initial sepsis screen is negative. Risk Assessment: Do you want to hurt yourself or someone else? Patient reports no desire to harm self or others. Onset of symptoms was June 02, 2024. 13:49 Acuity: SHARON 3 ll1 Triage Assessment: 13:49 General: Appears uncomfortable, Behavior is calm, cooperative, appropriate for age. ll1 Pain: Complains of pain in abdomen. GI: Reports upper abdominal pain, diarrhea, nausea, vomiting. Historical: - Allergies: 13:48 methylphenidate HCl; ll1 13:48 PENICILLINS; ll1 13:48 Reglan; ll1 13:48 Ritalin; ll1 - PMHx: 13:48 B12 deficiency; CHF; COPD; CVA; diabetes mellitus; DVT; DVT; fatty liver; GERD; ll1 Hyperlipidemia; Hypertension; Hypothyroidism; Kidney stones; Myocardial infarction; Pancreatitis; TIA; - PSHx: 13:48 Cholecystectomy; Left upper lobe removed from lung; Total abdominal hysterectomy; ll1 - Immunization history:: Adult Immunizations up to date. - Infectious Disease History:: Denies. - Social history:: Smoking status: Patient denies any tobacco usage or history of. Screenin:59 [facility] ED Fall Risk Assessment (Adult) History of falling in the last 3 months, jb4 including since admission No falls in past 3 months (0 pts) Confusion or Disorientation No (0 pts) Intoxicated or Sedated No (0 pts) Impaired Gait No (0 pts) Mobility Assist Device Used No (0 pt) Altered Elimination No (0 pt) Score/Fall Risk Level 0 - 2 = Low Risk Oriented to surroundings, Maintained a safe environment. Abuse screen: Denies threats or abuse. Nutritional screening: No deficits noted. Tuberculosis screening: No symptoms or risk factors identified. Assessment: 18:05 Reassessment: Patient appears in no apparent distress at this time. Patient and/or jb4 family updated on plan of care and expected duration. Pain level reassessed. Patient is alert, oriented x 3, equal unlabored respirations, skin warm/dry/pink. Patient states feeling better. 18:57 Reassessment: Patient appears in no apparent distress at this time. Patient and/or jb4 family updated on plan of care and expected duration. Pain level reassessed. Patient is alert, oriented x 3, equal unlabored respirations, skin warm/dry/pink. Vital Signs: 13:49 BP 130 / 92; Pulse 88; Resp 17; Temp 97.5; Pulse Ox 96% on R/A; Weight 78.47 kg; Height ll1 5 ft. 5 in. ; Pain 6/10; 18:04 BP 134 / 82; Pulse 84; Resp 16; Pulse Ox 100% on R/A; jb4 18:57 BP 119 / 64; Pulse 72; Resp 16; Pulse Ox 98% on R/A; jb4 13:49 Body Mass Index 28.79 (78.47 kg, 165.1 cm) ll1 13:49 Pain Scale: Adult ll1 ED Course: 13:42 Patient arrived in ED. al6 13:48 Arm band placed on. ll1 13:51 Triage completed. ll1 13:53 V[facility] Mejia PA-C [facility]. sb4 13:53 Gio Souza MD is Attending Physician. sb4 16:20 Keanu Mcarthur, REZA is Primary Nurse. jb4 17:37 CT Abd/Pelvis - IV Contrast Only In Process Unspecified. EDMS 18:14 Shalonda Arora MD is Referral Physician. sb4 18:57 Patient has correct armband on for positive identification. Bed in low position. Call jb4 light in reach. Side rails up X 1. Provided Education on: discharge instructions. . 18:57 No provider procedures requiring assistance completed. IV discontinued, intact, jb4 bleeding controlled, No redness/swelling at site. Pressure dressing applied. Administered Medications: 17:24 Drug: Ondansetron IVP 4 mg IVP once; over 2 minutes Route: IVP; Site: left forearm; jb4 17:25 Drug: TORadol - Ketorolac IVP 15 mg IVP once Route: IVP; Site: left forearm; jb4 18:04 Drug: Famotidine IVP 20 mg IVP once; dilute with 10 mL 0.9% NaCl; give over 2 minutes jb4 Route: IVP; Site: left forearm; 18:57 Drug: Promethazine IVP 6.25 mg IVP once Route: IVP; Site: left forearm; jb4 18:57 Follow up: Response: Medication administered at discharge. jb4 Medication: 18:57 VIS not applicable for this client. jb4 Outcome: 18:14 Discharge ordered by . mackenzie 18:57 Discharged to home ambulatory, jb4 18:57 Condition: stable 18:57 Discharge instructions given to patient, Instructed on discharge instructions, follow up and referral plans. Demonstrated understanding of instructions, follow-up care, 18:58 Patient left the ED. jb4 Signatures: Dispatcher [employer] EDKeanu Choi RN RN jb4 Per Baxter RN RN ll1 Vani Mejia, PAKierraC PAKierraC sb4 Yessi Galarza
--- NOTE | 2024-06-05 18:15 | EDPHYS ---
Physician Documentation [facility] Name: Toshia Barone Age: 69 yrs Sex: Female : 1955 Arrival Date: 06/05/2024 Time: 13:39 Bed 11 Private MD: ED Physician Gio Souza HPI: 06/05 18:38 This 69 yrs old Female presents to ER via Ambulatory with complaints of sb4 Nausea/Vomiting/Diarrhea. 18:38 The patient presents to the emergency department with nausea, vomiting, diarrhea, sb4 abdominal pain. Onset: The symptoms/episode began/occurred yesterday. Possible causes: flare up of bowel problem, pancreatitis. The patient has experienced similar episodes in the past, several times, today's symptoms are similar. The patient has been recently seen by a physician: a speech pathology teacher. Historical: - Allergies: 13:48 methylphenidate HCl; ll1 13:48 PENICILLINS; ll1 13:48 Reglan; ll1 13:48 Ritalin; ll1 - PMHx: 13:48 B12 deficiency; CHF; COPD; CVA; diabetes mellitus; DVT; DVT; fatty liver; GERD; ll1 Hyperlipidemia; Hypertension; Hypothyroidism; Kidney stones; Myocardial infarction; Pancreatitis; TIA; - PSHx: 13:48 Cholecystectomy; Left upper lobe removed from lung; Total abdominal hysterectomy; ll1 - Immunization history:: Adult Immunizations up to date. - Infectious Disease History:: Denies. - Social history:: Smoking status: Patient denies any tobacco usage or history of. ROS: 18:38 Constitutional: Negative for fever, chills, and weight loss, sb4 18:38 Abdomen/GI: Positive for abdominal pain, nausea, vomiting, and diarrhea, 18:38 All other systems are negative, Exam: 18:38 Constitutional: This is a well developed, well nourished patient who is awake, alert, sb4 and in no acute distress. Head/Face: Normocephalic, atraumatic. Eyes: Extra-ocular motions intact. Periorbital areas with no swelling, redness, or edema. ENT: Mucous membranes moist. Cardiovascular: Regular rate and rhythm with a normal S1 and S2. Respiratory: No increased work of breathing, no retractions or nasal flaring. Abdomen/GI: Soft, non-tender, no distension. Skin: Warm, dry with normal turgor. Normal color with no rashes, no lesions, and no evidence of cellulitis. Vital Signs: 13:49 BP 130 / 92; Pulse 88; Resp 17; Temp 97.5; Pulse Ox 96% on R/A; Weight 78.47 kg; Height ll1 5 ft. 5 in. ; Pain 6/10; 18:04 BP 134 / 82; Pulse 84; Resp 16; Pulse Ox 100% on R/A; jb4 18:57 BP 119 / 64; Pulse 72; Resp 16; Pulse Ox 98% on R/A; jb4 13:49 Body Mass Index 28.79 (78.47 kg, 165.1 cm) ll1 13:49 Pain Scale: Adult ll1 MDM: 16:24 Medical Screening Exam initiated sb4 18:38 Data reviewed: vital signs, nurses notes, lab test result(s), radiologic studies, and sb4 as a result, I will discharge patient. Counseling: I had a detailed discussion with the patient and/or guardian regarding the historical points, exam findings, and any diagnostic results supporting the discharge/admit diagnosis, lab results, radiology results, the need for outpatient follow up, a speech pathology teacher, to return to the emergency department if symptoms worsen or persist or if there are any questions or concerns that arise at home. 06/05 16:25 Order name: CBC with Diff; Complete Time: 16:53 sb4 06/05 16:25 Order name: CMP; Complete Time: 17:09 sb4 06/05 16:25 Order name: Lipase; Complete Time: 17:09 sb4 06/05 16:25 Order name: CT Abd/Pelvis - IV Contrast Only; Complete Time: 17:54 sb4 06/05 16:25 Order name: IV Saline Lock; Complete Time: 16:55 sb4 06/05 16:25 Order name: Labs collected and sent; Complete Time: 16:55 sb4 06/05 17:56 Order name: PO challenge; Complete Time: 18:05 sb4 Administered Medications: 17:24 Drug: Ondansetron IVP 4 mg IVP once; over 2 minutes Route: IVP; Site: left forearm; jb4 17:25 Drug: TORadol - Ketorolac IVP 15 mg IVP once Route: IVP; Site: left forearm; jb4 18:04 Drug: Famotidine IVP 20 mg IVP once; dilute with 10 mL 0.9% NaCl; give over 2 minutes jb4 Route: IVP; Site: left forearm; 18:57 Drug: Promethazine IVP 6.25 mg IVP once Route: IVP; Site: left forearm; jb4 18:57 Follow up: Response: Medication administered at discharge. jb4 Disposition Summary: 06/05/24 18:14 Discharge Ordered Notes: Location: Home sb4 Problem: an ongoing problem sb4 Symptoms: have improved sb4 Condition: Stable sb4 Diagnosis - Upper abdominal pain, unspecified sb4 - Nausea with vomiting, unspecified sb4 Followup: sb4 - With: Shalonda Arora MD - When: 2 - 3 days - Reason: Recheck today's complaints, Re-evaluation by your physician Discharge Instructions: - Discharge Summary Sheet sb4 - Abdominal Pain, Adult sb4 - Nausea and Vomiting, Adult sb4 Forms: - Patient Portal Instructions sb4 - Leadership Thank You Letter sb4 Signatures: Dispatcher [employer] Keanu Vasquez RN RN jb4 Per Baxter RN RN ll1 Vani Mejia PASammy PASammy sb4
[2024-06-05] MEDS ORDERED: PROMETHAZINE INJ 25 MG/ML AMP ONE (18:47)
[2024-06-05 19:26] VITALS: TEMP 97.5
[2024-06-05 19:30] VITALS: BP 119/64; O2SAT 98
== END 2024-06-05 18:58 | disposition home or self-care (01) ==
LOC: ER 13:39
DX: R11.2 Nausea with vomiting, unspecified (principal); R10.10 Upper abdominal pain, unspecified; E11.9 Type 2 diabetes mellitus without complications; I10 Essential (primary) hypertension; I50.9 Heart failure, unspecified
CPT/HCPCS: 85025; 36415; 83690; 80053; 74177; 96375; 96374; 99284; Q9967; J2550; J2405

== ENCOUNTER 2024-09-02 09:37 | Emergency (ER) | payer OTHER ==
[2024-09-02] MEDS ORDERED: KETOROLAC 30 MG/ML INJ ONE (09:57)
[2024-09-02] MEDS ORDERED: ONDANSETRON 4 MG/2 ML VIAL ONE (09:57)
[2024-09-02 10:27] LABS: Absolute Eosinophils 0.1 K/uL (0-0.5); Absolute Lymphocytes (CBC) 2.9 K/uL (0.7-4.9); Absolute Monocytes 0.4 K/uL (0.1-1.3); Absolute Neutrophil 2.9 K/uL (1.8-8.0); Basophils % 0.4 % (0-1.3); Eosinophils % 1.1 % (0-4.4); Hematocrit 42.2 % (36.0-45.0); Hemoglobin 14.1 g/dL (12.0-15.0); Lymphocytes % 46.1 % (15.3-44.8); MCH 30.3 pg (27.0-35.0); MCHC 33.5 g/dL (32.0-36.0); MCV 90.6 fL (80-100); MPV 8.6 fL (7.6-11.3); Monocytes % 6.8 % (3.3-12.3); Neutrophils % 45.6 % (41.7-73.7); Nucleated Red Blood Cells % 0.1 % (0-0); Platelets 174 thou/uL (152-406); RBC Red Blood Cell Count 4.66 M/uL (3.86-4.86); Red Cell Distribution Width 16.1 % (12.1-15.2)
[2024-09-02 10:42] LABS: ALT/SGPT 25 U/L (13-56); AST/SGOT 20 U/L (15-37); Albumin 3.4 g/dL (3.4-5.0); Albumin/Globulin Ratio 0.9 (1.1-1.8); Alkaline Phosphatase 119 U/L (45-117); Anion Gap 8.4 mEq/L (5.0-15.0); BUN Blood Urea Nitrogen 18 mg/dL (7-18); Bicarbonate 28 mEq/L (21-32); Bilirubin Total 1.2 mg/dL (0.2-1.0); Globulin 3.7 g/dL (2.3-3.5); Glomerular Filtration Rate 99 ml/min (=/>90); Glucose Level 94 mg/dL (74-106); Lipase 44 U/L (13-75); Potassium 3.4 mEq/L (3.5-5.1); Protein, Total 7.1 g/dL (6.4-8.2); Sodium Level 142 mEq/L (136-145)
[2024-09-02 10:43] LABS: Troponin High Sensitivity < 3.0 pg/mL (<58.9)
--- NOTE | 2024-09-02 11:00 | RAD REPORT ---
EXAMINATION: CT Abdomen Pelvis Wo Contrast CLINICAL INDICATION: Female, 69 years old. ABD PAIN TECHNIQUE: CT abdomen and pelvis was performed, without IV contrast, as per department protocol. Axia l, sagittal and coronal reconstructions were obtained. One or more of the following dose reduction techniques were used: Automated exposure control, adjustment of the mA and kV according to the patien t size, and iterative reconstruction. Unless otherwise specified, incidental findings do not require dedicated imaging follow-up. COMPARISON: 06/05/2024 FINDINGS: The lack of intravenous contrast limits the sensitivity of this exam for evaluation of solid visceral organs, vascular structures, and retroperitoneum. LOWER CHEST: The visualized lung bases are clear. LIVER: Normal in size and contour. No focal lesion. BILIARY SYSTEM: Status post cholecystectomy. SPLEEN: Normal size. No focal lesion. PANCREAS: No mass, ductal dilation, or dalila-pancreatic fluid. ADRENALS: Normal; no mass. KIDNEYS AND URETERS: Normal size and contour. Bilateral L1-2 mL nonobstructing calculi. No hydronephr osis. Small cortical hypoattenuating lesions, largest at the left upper pole measuring 1.3 cm. URINARY BLADDER: Normal contour. GASTROINTESTINAL TRACT: No evidence of bowel obstruction, significant free fluid, free air or abscess . APPENDIX: Normal appendix. LYMPH NODES: No lymphadenopathy. MUSCULOSKELETAL: No acute or suspicious osseous abnormality. ADDITIONAL FINDINGS: None. IMPRESSION: Nonobstructing tiny bilateral renal calculi not exceeding 1 lm. No other acute or concerning abnormal ities in the abdomen or pelvis, with evaluation limited by lack of IV contrast.
--- NOTE | 2024-09-02 11:09 | EDPHYS ---
Physician Documentation [facility] Name: Toshia Barone Age: 69 yrs Sex: Female : 1955 Arrival Date: 09/02/2024 Time: 09:37 Bed 15 Private MD: ED Physician Luke Howard HPI: 09/02 09:51 This 69 yrs old Female presents to ER via Ambulatory with complaints of ec2 Abdominal Pain. 09:51 Patient arrives today for evaluation of upper abdominal pain. Patient reports she is ec2 experiencing upper abdominal pain for the past week. Reports pain has been intermittent without specific alleviating or exacerbating factors. Patient reports some associated nausea. Also reports some bouts of diarrhea. No urinary complaints. Denies any cough and cold symptoms. Patient reports history of diabetes, CHF.. Historical: - Allergies: 09:43 methylphenidate HCl; ll1 09:43 PENICILLINS; ll1 09:43 Reglan; ll1 09:43 Ritalin; ll1 - PMHx: 09:43 B12 deficiency; CHF; COPD; CVA; diabetes mellitus; DVT; fatty liver; GERD; ll1 Hyperlipidemia; Hypertension; Hypothyroidism; Kidney stones; Myocardial infarction; Pancreatitis; TIA; - PSHx: 09:43 Cholecystectomy; Left upper lobe removed from lung; Total abdominal hysterectomy; ll1 - Immunization history:: Adult Immunizations up to date. - Infectious Disease History:: Denies. - Social history:: Smoking status: Patient denies any tobacco usage or history of. ROS: 09:52 Constitutional: as per hpi ec2 Exam: 09:52 Constitutional: GEN: NAD Head: atraumatic Eyes: EOMI Ears: External ears are ec2 normal. CV: regular rate LUNGS: no respiratory distress ABD: non-distended, soft, not guarding, not rigid SKIN: no evidence of rashes MSK: no evidence of trauma Vital Signs: 09:48 BP 161 / 96; Pulse 77; Resp 16; Temp 97.7; Pulse Ox 99% ; rk3 11:21 BP 136 / 76; Pulse 64; Resp 17; Pulse Ox 99% ; Pain 6/10; ll1 11:21 Pain Scale: Adult ll1 MDM: 09:44 Medical Screening Exam initiated ec2 09:53 Data reviewed: vital signs, nurses notes. ED course: Patient arrives today for ec2 abdominal pain. Examination yields reassuring abdominal exam without guarding or rigidity. Will obtain lab work, urine studies, CT imaging as well as cardiac workup. DDx include processes such as atypical, gastritis, ACS, enteritis. 10:17 ED course: EKG independently reviewed and interpreted by me, shows nsr, rate of 72, no ec2 acute ischemic changes noted, intervals are non-actionable. 11:08 ED course: CBC is reassuring. Metabolic profile shows slight hypokalemia. Lipase within ec2 normal ranges. CTA abdomen pelvis shows no acute intra-abdominal process. Will discharge home have the patient follow-up with PCP. No evidence of acute intra-abdominal emergency, no evidence of ACS. . 09/02 09:50 Order name: CBC with Diff; Complete Time: 11:08 ec2 09/02 09:50 Order name: CMP; Complete Time: 11:08 ec2 09/02 09:50 Order name: Lipase; Complete Time: 11:08 ec2 09/02 09:50 Order name: Troponin High Sensitivity; Complete Time: 11:08 ec2 09/02 09:50 Order name: CT Abd/Pelvis - Without Contrast; Complete Time: 11:08 ec2 09/02 09:50 Order name: IV Saline Lock; Complete Time: 10:15 ec2 09/02 09:50 Order name: Labs collected and sent; Complete Time: 10:15 ec2 09/02 09:50 Order name: EKG - Nurse/Tech; Complete Time: 10:15 ec2 Administered Medications: 10:15 Drug: TORadol - Ketorolac IVP 15 mg IVP once Route: IVP; Site: left hand; ll1 11:23 Follow up: Response: No adverse reaction; Pain is decreased; RASS: Alert and Calm (0) ll1 10:15 Drug: Ondansetron IVP 4 mg IVP once; over 2 minutes Route: IVP; Site: left hand; ll1 11:23 Follow up: Response: No adverse reaction ll1 Disposition Summary: 09/02/24 11:08 Discharge Ordered Notes: Location: Home ec2 Condition: Stable ec2 Diagnosis - Abdominal pain, Generalized ec2 Followup: ec2 - With: Private Physician - When: - Reason: Re-evaluation by your physician Discharge Instructions: - Discharge Summary Sheet ec2 - Abdominal Pain, Adult ec2 Forms: - Medication Reconciliation Form ec2 - Antibiotic Education ec2 - Prescription Opioid Use ec2 - Patient Portal Instructions ec2 - Leadership Thank You Letter ec2 Prescriptions: - Zofran 4 mg Oral Tablet - take 1 tablet ORAL route every 12 hours As needed; 20 tablet; Refills: 0, ec2 Product Selection Permitted - dicyclomine 10 mg Oral capsule - take 1 capsule ORAL route 3 times per day; 15 capsule; Refills: 0, Product ec2 Selection Permitted Signatures: Dispatcher [employer] Per Strauss RN RN ll1 Luke Howard MD MD ec2 Corrections: (The following items were deleted from the chart) 09:50 09:50 CBC+H.LAB.BRZ ordered. EDMS EDMS 09:50 09:50 COMPREHENSIVE METABOLIC PANEL+C.LAB.BRZ ordered. EDMS EDMS 09:50 09:50 LIPASE+C.LAB.BRZ ordered. EDMS EDMS 09:50 09:50 Urinalysis+U.LAB.BRZ ordered. EDMS EDMS 09:50 09:50 Troponin High Sensitivity+C.LAB.BRZ ordered. EDMS EDMS
--- NOTE | 2024-09-02 11:09 | ER ---
Nurse's Notes [facility] Name: Toshia Barone Age: 69 yrs Sex: Female : 1955 Arrival Date: 09/02/2024 Time: 09:37 Bed 15 Private MD: Diagnosis: Abdominal pain, Generalized Presentation: 09/02 09:48 Coronavirus screen: Client denies travel out of the [place] in the last 14 days. At this ll1 time, the client does not indicate any symptoms associated with coronavirus-19. Ebola Screen: Patient denies travel to an Ebola-affected area in the 21 days before illness onset. Initial Sepsis Screen: Does the patient meet any 2 criteria? No. Patient's initial sepsis screen is negative. Does the patient have a suspected source of infection? No. Patient's initial sepsis screen is negative. Risk Assessment: Do you want to hurt yourself or someone else? Patient reports no desire to harm self or others. 09:48 Method Of Arrival: Ambulatory 1 09:48 Acuity: SHARON 3 ll1 09:48 Chief complaint: Patient states: Abdominal pain with nausea and diarrhea for 1 week. ll1 Onset of symptoms was September 05, 2024. Triage Assessment: 11:21 General: Appears in no apparent distress. Behavior is calm, cooperative. Pain: ll1 Complains of pain in abdomen Quality of pain is described as aching, crampy. GI: Reports cramping, nausea. Historical: - Allergies: 09:43 methylphenidate HCl; ll1 09:43 PENICILLINS; ll1 09:43 Reglan; ll1 09:43 Ritalin; ll1 - PMHx: 09:43 B12 deficiency; CHF; COPD; CVA; diabetes mellitus; DVT; fatty liver; GERD; ll1 Hyperlipidemia; Hypertension; Hypothyroidism; Kidney stones; Myocardial infarction; Pancreatitis; TIA; - PSHx: 09:43 Cholecystectomy; Left upper lobe removed from lung; Total abdominal hysterectomy; ll1 - Immunization history:: Adult Immunizations up to date. - Infectious Disease History:: Denies. - Social history:: Smoking status: Patient denies any tobacco usage or history of. Screenin:49 [facility] ED Fall Risk Assessment (Adult) History of falling in the last 3 months, ll1 including since admission No falls in past 3 months (0 pts) Confusion or Disorientation No (0 pts) Intoxicated or Sedated No (0 pts) Impaired Gait No (0 pts) Mobility Assist Device Used No (0 pt) Altered Elimination No (0 pt) Score/Fall Risk Level 0 - 2 = Low Risk Maintained a safe environment, Hourly rounding (assess needs \T\ fall precautionary measures) done. Abuse screen: Denies threats or abuse. Nutritional screening: No deficits noted. Tuberculosis screening: No symptoms or risk factors identified. Assessment: 11:21 Reassessment: No changes from previously documented assessment. Patient and/or family ll1 updated on plan of care and expected duration. Pain level reassessed. Patient is alert, oriented x 3, equal unlabored respirations, skin warm/dry/pink. 11:22 GI: Bowel sounds present X 4 quads. Abd is soft and non tender X 4 quads. ll1 Vital Signs: 09:48 BP 161 / 96; Pulse 77; Resp 16; Temp 97.7; Pulse Ox 99% ; rk3 11:21 BP 136 / 76; Pulse 64; Resp 17; Pulse Ox 99% ; Pain 6/10; ll1 11:21 Pain Scale: Adult ll1 ED Course: 09:39 Patient arrived in ED. mr 09:40 Luke Howard MD is Attending Physician. ec2 09:43 Arm band placed on Patient placed in an exam room, on a stretcher. ll1 09:48 Triage completed. ll1 09:50 Per Baxter, REZA is Primary Nurse. ll1 10:03 CT Abd/Pelvis - Without Contrast In Process Unspecified. EDMS 10:13 No provider procedures requiring assistance completed. Inserted saline lock: 24 gauge ll1 in left hand, using aseptic technique. Blood collected. Flushed with 10 mL NS. 10:15 Provided Education on: ER procedures and process. ll1 10:49 Patient has correct armband on for positive identification. Bed in low position. Call ll1 light in reach. Client placed on continuous cardiac and pulse oximetry monitoring. NIBP monitoring applied. 11:21 IV discontinued, intact, bleeding controlled, No redness/swelling at site. Pressure ll1 dressing applied. Administered Medications: 10:15 Drug: TORadol - Ketorolac IVP 15 mg IVP once Route: IVP; Site: left hand; ll1 11:23 Follow up: Response: No adverse reaction; Pain is decreased; RASS: Alert and Calm (0) 1 10:15 Drug: Ondansetron IVP 4 mg IVP once; over 2 minutes Route: IVP; Site: left hand; [facility] 11:23 Follow up: Response: No adverse reaction ll1 Medication: 10:50 VIS not applicable for this client. 1 Outcome: 11:08 Discharge ordered by . ec2 11:22 Discharged to home ambulatory, 1 11:22 Condition: stable 11:22 Discharge instructions given to patient, Instructed on discharge instructions, follow up and referral plans. medication usage, Demonstrated understanding of instructions, follow-up care, medications, Prescriptions given X 2, 11:23 Patient left the ED. 1 Signatures: Dispatcher [employer] EDAna M Duncan, Per Johnson RN RN 1 Luke Howard MD MD ec2 Jonathan Jeffries rk3
[2024-09-02 11:28] VITALS: TEMP 97.7; O2SAT 99
[2024-09-02 11:30] VITALS: BP 136/76
--- NOTE | 2024-09-03 14:41 | EKG ---
Test Date: 2024-09-02 Test Time: 10:08:42 Imaging Clerk: ALECIA MEASUREMENT RESULTS: Intervals: Rate: 72 OH: 154 QRSD: 72 QT: 380 QTc: 416 Campbell: P: 48 OH: 154 QRS: 38 T: 94 INTERPRETIVE STATEMENTS: Normal sinus rhythm Nonspecific T wave abnormality Abnormal ECG Compared to ECG 02/26/2024 18:00:28 T-wave abnormality now present Electronically Signed On 09-03-24 14:40:06 CDT by Agustin Vargas
== END 2024-09-02 11:23 | disposition home or self-care (01) ==
LOC: ER 09:37
DX: R10.84 Generalized abdominal pain (principal); R11.0 Nausea
CPT/HCPCS: 93005; 85025; 36415; 84484; 83690; 80053; 74176; 96375; 96374; 99284; J2405

== ENCOUNTER 2024-10-12 09:35 | Emergency (ER) | payer OTHER ==
[2024-10-12] MEDS ORDERED: NA CHLORIDE 0.9% 1,000 ML ONE (10:04)
[2024-10-12 10:34] LABS: Absolute Eosinophils 0.1 K/uL (0-0.5); Absolute Lymphocytes (CBC) 2.3 K/uL (0.7-4.9); Absolute Monocytes 0.3 K/uL (0.1-1.3); Absolute Neutrophil 3.8 K/uL (1.8-8.0); Basophils % 0.7 % (0-1.3); Eosinophils % 0.8 % (0-4.4); Hematocrit 44.5 % (36.0-45.0); Hemoglobin 15.1 g/dL (12.0-15.0); Lymphocytes % 35.5 % (15.3-44.8); MCHC 33.8 g/dL (32.0-36.0); MCV 91.8 fL (80-100); MPV 8.6 fL (7.6-11.3); Nucleated Red Blood Cells % 0.1 % (0-0); Platelets 163 thou/uL (152-406); RBC Red Blood Cell Count 4.85 M/uL (3.86-4.86); Red Cell Distribution Width 15.8 % (12.1-15.2)
[2024-10-12 10:37] LABS: PT Prothrombin Time 11.5 SECONDS (10-13.0); Protime INR 1.01
--- NOTE | 2024-10-12 10:47 | RAD REPORT ---
EXAM: CT Head Brain Wo Cont HISTORY: HEADACHE COMPARISON: 09/02/2020 TECHNIQUE: Multiple contiguous axial images were obtained for a CT of the brain without contrast. Sag ittal and coronal reformats were performed. One or more of the following dose reduction techniques were used: Automated exposure control, adjus tment of the mA and kV according to patient size, and iterative reconstruction. Unless otherwise specified, incidental findings do not require dedicated imaging follow-up. FINDINGS: No evidence of hydrocephalus, intracranial hemorrhage, or extra-axial fluid collection. The brain is normal in morphology. The calvarium is intact. The visualized paranasal sinuses and mastoid air cells are essentially clear . IMPRESSION: No evidence of acute intracranial abnormality.
--- NOTE | 2024-10-12 10:53 | RAD REPORT ---
EXAMINATION: CT Stone Protocol CLINICAL INDICATION: Female, 69 years old. FLANK PAIN TECHNIQUE: CT abdomen and pelvis was performed, without IV contrast, as per department protocol. Axia l, sagittal and coronal reconstructions were obtained. One or more of the following dose reduction techniques were used: Automated exposure control, adjustment of the mA and kV according to the patien t size, and iterative reconstruction. Unless otherwise specified, incidental findings do not require dedicated imaging follow-up. COMPARISON: No prior exam. FINDINGS: The lack of intravenous contrast limits the sensitivity of this exam for evaluation of solid visceral organs, vascular structures, and retroperitoneum. LOWER CHEST: The visualized lung bases are clear. LIVER: Normal in size and contour. No focal lesion. BILIARY SYSTEM: Status post cholecystectomy. SPLEEN: Normal size. No focal lesion. PANCREAS: No mass, ductal dilation, or dalila-pancreatic fluid. ADRENALS: Normal; no mass. KIDNEYS AND URETERS: 1-2 mm right renal interpolar nonobstructing calculus. Focal swelling, adjacent perinephric fat stranding and trace localized fluid along the posterior cortex at the right lower renal pole, may suggest focal pyelonephritis. No appreciable fluid collections within limits of nonco ntrast evaluation. Stable anterior cortical right upper to midpole hypoattenuating 1.4 cm lesion which may represent a benign cyst. Normal size and contour otherwise. No hydronephrosis. URINARY BLADDER: Normal contour. GASTROINTESTINAL TRACT: No evidence of bowel obstruction, significant free fluid, free air or abscess . APPENDIX: Normal appendix. LYMPH NODES: No lymphadenopathy. MUSCULOSKELETAL: No acute or suspicious osseous abnormality. ADDITIONAL FINDINGS: None. IMPRESSION: Focal swelling, adjacent perinephric fat stranding and trace localized fluid along the posterior ted ex at the right lower renal pole, may suggest focal pyelonephritis. Nonobstructing right renal interpolar 1-2 mm calculus. No other acute or concerning abnormalities in the abdomen or pelvis, with evaluation limited by lack of IV contrast.
--- NOTE | 2024-10-12 10:54 | RAD REPORT ---
EXAMINATION: ONE VIEW CHEST XR CLINICAL INDICATION: Female, 69 years old.,COUGH TECHNIQUE: Frontal chest projection is submitted. Examination is limited by patient positioning and t echnique. COMPARISON: 02/26/2024 FINDINGS: The lungs are well inflated and clear, apart from stable left basilar atelectasis. No pneumothorax o r sizable effusion. The heart is normal in size. Mediastinal contours are unchanged. Multiple left rib deformities, stable, could relate to prior surgical intervention. IMPRESSION: No acute intrathoracic abnormalities.
[2024-10-12 10:55] LABS: Specific Gravity 1.019 (1.005-1.030); Urine Bacteria <20 /HPF (<20); Urine Bilirubin NEGATIVE (Negative); Urine Blood 2+ (Negative); Urine Clarity Extremely Turbid (Clear); Urine Color Light-Yellow (Yellow); Urine Culture Reflex Order NOT NEEDED; Urine Glucose NEGATIVE (Negative); Urine Ketones NEGATIVE (Negative); Urine Microscopic Reflex YN ORDER UMIC; Urine Mucus 1+ /HPF (None Seen); Urine Nitrite NEGATIVE (Negative); Urine Protein 1+ (Negative); Urine Urobilinogen 1+ (Normal); Urine pH 6.5 (5.0-7.0)
[2024-10-12 11:08] LABS: ALT/SGPT 23 U/L (13-56); Albumin 3.8 g/dL (3.4-5.0); Albumin/Globulin Ratio 0.9 (1.1-1.8); Alkaline Phosphatase 106 U/L (45-117); Anion Gap 8.5 mEq/L (5.0-15.0); BUN Blood Urea Nitrogen 15 mg/dL (7-18); Bicarbonate 26 mEq/L (21-32); Bilirubin Direct 0.3 mg/dL (0-0.2); Bilirubin Indirect, Calculated 0.8 mg/dL (0.2-0.8); Bilirubin Total 1.1 mg/dL (0.2-1.0); Globulin 4.3 g/dL (2.3-3.5); Glomerular Filtration Rate 64 ml/min (=/>90); Glucose Level 82 mg/dL (74-106); Lipase 46 U/L (13-75); NT PRO-BNP 66 pg/mL (<125); Protein, Total 8.1 g/dL (6.4-8.2); Sodium Level 140 mEq/L (136-145)
[2024-10-12 11:12] LABS: AST/SGOT 24 U/L (15-37); Magnesium 2.2 mg/dL (1.6-2.4); Potassium 3.5 mEq/L (3.5-5.1); Troponin High Sensitivity < 3.0 pg/mL (<58.9)
[2024-10-12] MEDS ORDERED: FENTANYL CITR 100 MCG/2 ML ONE (11:20)
[2024-10-12] MEDS ORDERED: ONDANSETRON 4 MG/2 ML VIAL ONE (11:20)
[2024-10-12] MEDS ORDERED: levoFLOXacin 250 MG TAB ONE (11:20)
--- NOTE | 2024-10-12 11:44 | ER ---
Nurse's Notes [facility] Name: Toshia Barone Age: 69 yrs Sex: Female : 1955 Arrival Date: 10/12/2024 Time: 09:35 Bed 8 Private MD: Diagnosis: Headache;UTI/ Urinary tract infection, site not specified;Nausea with vomiting, unspecified Presentation: 10/12 09:48 Chief complaint: Patient states: has a headache and vomiting ,and chills X 2 weeks , iw she had a procedure done on her kidney on the for kidney cancer. Coronavirus screen: At this time, the client does not indicate any symptoms associated with coronavirus-19. Ebola Screen: No symptoms or risks identified at this time. Initial Sepsis Screen: Does the patient meet any 2 criteria? No. Patient's initial sepsis screen is negative. Does the patient have a suspected source of infection? No. Patient's initial sepsis screen is negative. Risk Assessment: Do you want to hurt yourself or someone else? Patient reports no desire to harm self or others. Onset of symptoms was September 30, 2024. 09:48 Method Of Arrival: Ambulatory iw 09:48 Acuity: SHARON 3 iw Historical: - Allergies: 09:50 methylphenidate HCl; iw 09:50 PENICILLINS; iw 09:50 Reglan; iw - PMHx: 09:50 B12 deficiency; COPD; CVA; CHF; diabetes mellitus; DVT; fatty liver; GERD; iw Hyperlipidemia; Hypertension; Hypothyroidism; Kidney stones; Myocardial infarction; Pancreatitis; TIA; - PSHx: 09:50 Left upper lobe removed from lung; Cholecystectomy; Total abdominal hysterectomy; iw - Immunization history:: Adult Immunizations up to date. - Infectious Disease History:: Denies. - Social history:: Smoking status: Patient denies any tobacco usage or history of. Screenin:56 [facility] ED Fall Risk Assessment (Adult) History of falling in the last 3 months, ph including since admission No falls in past 3 months (0 pts) Confusion or Disorientation No (0 pts) Intoxicated or Sedated No (0 pts) Impaired Gait No (0 pts) Mobility Assist Device Used No (0 pt) Altered Elimination No (0 pt) Score/Fall Risk Level 0 - 2 = Low Risk Oriented to surroundings, Maintained a safe environment, Hourly rounding (assess needs \T\ fall precautionary measures) done. Abuse screen: Denies threats or abuse. Denies injuries from another. Nutritional screening: No deficits noted. Tuberculosis screening: No symptoms or risk factors identified. Assessment: 10:29 General: Appears in no apparent distress. comfortable, well groomed, Behavior is calm, ph cooperative, appropriate for age, Reports chills for >3 days. Pain: Complains of pain in headache. Neuro: Level of Consciousness is awake, alert, obeys commands, Oriented to person, place, time, situation, Reports headache. Cardiovascular: Capillary refill < 3 seconds in bilateral fingers Patient's skin is warm and dry. Respiratory: Airway is patent Respiratory effort is even, unlabored. GI: Reports nausea, vomiting, Patient currently denies abdominal pain. : No signs and/or symptoms were reported regarding the genitourinary system. Derm: Skin is pink, warm \T\ dry. Vital Signs: 09:48 BP 156 / 102; Pulse 84; Resp 19; Temp 98.6; Pulse Ox 96% on R/A; Weight 81.19 kg; iw Height 5 ft. 5 in. ; Pain 7/10; 09:51 BP 161 / 89; iw 11:02 BP 144 / 88; Pulse 85; Resp 18; Pulse Ox 100% on R/A; ph 12:12 BP 139 / 85; Pulse 81; Resp 18; Temp 97.2; Pulse Ox 99% on R/A; ph 09:48 Body Mass Index 29.79 (81.19 kg, 165.1 cm) iw 09:48 Pain Scale: Adult iw [place] Coma Score: 10:24 Eye Response: spontaneous(4). Motor Response: obeys commands(6). Verbal Response: yoandy oriented(5). Total: 15. ED Course: 09:38 Patient arrived in ED. al6 09:39 Juwan Katz MD is Attending Physician. yoandy 09:50 Triage completed. iw 09:51 Arm band placed on. iw 09:53 Viviana Sweeney, REZA is Primary Nurse. ph 09:57 Patient has correct armband on for positive identification. Bed in low position. Call ph light in reach. Side rails up X 1. Pulse ox on. NIBP on. Door closed. Noise minimized. Warm blanket given. 10:27 CT Stone Protocol In Process Unspecified. EDMS 10:27 Head Brain Wo Cont In Process Unspecified. EDMS 10:28 Initial lab(s) drawn, by me, sent to lab. Urine collected: clean catch specimen, ph cloudy, EKG done, by ED staff, reviewed by Juwan Katz MD. Inserted saline lock: 24 gauge in right hand, using aseptic technique. Blood collected. Flushed with 10 mL NS. 10:40 XRAY Chest (1 view) In Process Unspecified. EDMS 12:12 No provider procedures requiring assistance completed. IV discontinued, intact, ph bleeding controlled, No redness/swelling at site. Pressure dressing applied. Administered Medications: 10:39 Drug: NS 0.9% IV 1000 ml IV at 1000 ml once; to be given as a bolus over 60 minutes ph Route: IV; Rate: 1000 ml; Site: right hand; 12:13 Follow up: Response: No adverse reaction; IV Status: Completed infusion; IV Intake: ph 1000ml 11:39 Drug: Ondansetron IVP 4 mg IVP once; over 2 minutes Route: IVP; Site: right hand; ph 12:14 Follow up: Response: No adverse reaction ph 11:39 Drug: LevOfloxacin PO 500 mg PO once Route: PO; ph 12:14 Follow up: Response: No adverse reaction ph 11:40 Drug: fentaNYL (PF) IVP 50 mcg IVP once Route: IVP; Site: right hand; ph 12:13 Follow up: Response: No adverse reaction; Pain is decreased ph Medication: 09:57 VIS not applicable for this client. ph Intake: 12:13 IV: 1000ml; Total: 1000ml. ph Outcome: 11:43 Discharge ordered by . yoandy 12:13 Discharged to home ambulatory, ph 12:13 Condition: good 12:13 Discharge instructions given to patient, Instructed on discharge instructions, follow up and referral plans. medication usage, Demonstrated understanding of instructions, follow-up care, medications, Prescriptions given X 3, 12:14 Patient left the ED. ph Signatures: Dispatcher [employer] Juwan Pablo MD MD cha Williams, Irene, RN REZA Viviana Sweeney RN RN ph Landin, Alissa al6
--- NOTE | 2024-10-12 11:44 | EDPHYS ---
Physician Documentation [facility] Name: Toshia Barone Age: 69 yrs Sex: Female : 1955 Arrival Date: 10/12/2024 Time: 09:35 Bed 8 Private MD: KINGS Physician Juwan Katz HPI: 10/12 10:16 This 69 yrs old Female presents to ER via Ambulatory with complaints of yoandy Headache, Vomiting. 10:16 The patient complains of pain to the top of head, forehead, left frontal area, left yoandy side of the back of head, right frontal area and right side of the back of head. The patient describes the headache as constant. Onset: The symptoms/episode began/occurred 2 day(s) ago. Associated signs and symptoms: Pertinent positives: dizziness, nausea. Severity of symptoms: At its worst the pain was moderate, in the emergency department the pain is unchanged. Headache History: The patient has had previous headaches and this one is similar to previous episodes. The symptoms are alleviated by quiet, remaining still, the symptoms are aggravated by nothing. The patient has experienced similar episodes in the past, several times. Historical: - Allergies: 09:50 methylphenidate HCl; iw 09:50 PENICILLINS; iw 09:50 Reglan; iw - PMHx: 09:50 B12 deficiency; COPD; CVA; CHF; diabetes mellitus; DVT; fatty liver; GERD; iw Hyperlipidemia; Hypertension; Hypothyroidism; Kidney stones; Myocardial infarction; Pancreatitis; TIA; - PSHx: 09:50 Left upper lobe removed from lung; Cholecystectomy; Total abdominal hysterectomy; iw - Immunization history:: Adult Immunizations up to date. - Infectious Disease History:: Denies. - Social history:: Smoking status: Patient denies any tobacco usage or history of. ROS: 10:20 Constitutional: Negative for fever, chills, and weight loss, Eyes: Negative for injury, yoandy pain, redness, and discharge, ENT: Negative for injury, pain, and discharge, Neck: Negative for injury, pain, and swelling, Cardiovascular: Negative for chest pain, palpitations, and edema, Respiratory: Negative for shortness of breath, cough, wheezing, and pleuritic chest pain, Abdomen/GI: Negative for abdominal pain, nausea, vomiting, diarrhea, and constipation, Back: Negative for injury and pain, : Negative for injury, bleeding, discharge, and swelling, MS/Extremity: Negative for injury and deformity, Skin: Negative for injury, rash, and discoloration, Neuro: Negative for headache, weakness, numbness, tingling, and seizure, Psych: Negative for depression, anxiety, suicide ideation, homicidal ideation, and hallucinations, Allergy/Immunology: Negative for hives, rash, and allergies, Endocrine: Negative for neck swelling, polydipsia, polyuria, polyphagia, and marked weight changes, Hematologic/Lymphatic: Negative for swollen nodes, abnormal bleeding, and unusual bruising, Exam: 10:20 Constitutional: This is a well developed, well nourished patient who is awake, alert, yoandy and in no acute distress. Head/Face: Normocephalic, atraumatic. Eyes: Pupils equal round and reactive to light, extra-ocular motions intact. Lids and lashes normal. Conjunctiva and sclera are non-icteric and not injected. Cornea within normal limits. Periorbital areas with no swelling, redness, or edema. ENT: Nares patent. No nasal discharge, no septal abnormalities noted. Tympanic membranes are normal and external auditory canals are clear. Oropharynx with no redness, swelling, or masses, exudates, or evidence of obstruction, uvula midline. Mucous membranes moist. Neck: Trachea midline, no thyromegaly or masses palpated, and no cervical lymphadenopathy. Supple, full range of motion without nuchal rigidity, or vertebral point tenderness. No Meningismus. Chest/axilla: Normal chest wall appearance and motion. Nontender with no deformity. No lesions are appreciated. Cardiovascular: Regular rate and rhythm with a normal S1 and S2. No gallops, murmurs, or rubs. Normal PMI, no JVD. No pulse deficits. Respiratory: Lungs have equal breath sounds bilaterally, clear to auscultation and percussion. No rales, rhonchi or wheezes noted. No increased work of breathing, no retractions or nasal flaring. Abdomen/GI: Soft, non-tender, with normal bowel sounds. No distension or tympany. No guarding or rebound. No evidence of tenderness throughout. Back: No spinal tenderness. No costovertebral tenderness. Full range of motion. Female : Normal external genitalia. Skin: Warm, dry with normal turgor. Normal color with no rashes, no lesions, and no evidence of cellulitis. MS/ Extremity: Pulses equal, no cyanosis. Neurovascular intact. Full, normal range of motion., bilateral aka Neuro: Awake and alert, GCS 15, oriented to person, place, time, and situation. Cranial nerves II-XII grossly intact. Motor strength 5/5 in all extremities. Sensory grossly intact. Cerebellar exam normal. Normal gait. Psych: Awake, alert, with orientation to person, place and time. Behavior, mood, and affect are within normal limits. 10:20 ECG was reviewed by the Attending Physician. Vital Signs: 09:48 BP 156 / 102; Pulse 84; Resp 19; Temp 98.6; Pulse Ox 96% on R/A; Weight 81.19 kg; iw Height 5 ft. 5 in. ; Pain 7/10; 09:51 BP 161 / 89; iw 11:02 BP 144 / 88; Pulse 85; Resp 18; Pulse Ox 100% on R/A; ph 12:12 BP 139 / 85; Pulse 81; Resp 18; Temp 97.2; Pulse Ox 99% on R/A; ph 09:48 Body Mass Index 29.79 (81.19 kg, 165.1 cm) iw 09:48 Pain Scale: Adult iw [place] Coma Score: 10:24 Eye Response: spontaneous(4). Motor Response: obeys commands(6). Verbal Response: yoandy oriented(5). Total: 15. MDM: 09:40 Medical Screening Exam initiated yoandy 10:24 Differential diagnosis: cluster headache, hyponatremia, migraine, neoplasm, temporal yoandy arteritis, tension headache, trigeminal neuralgia, uremia. Data reviewed: vital signs, nurses notes, lab test result(s), EKG, radiologic studies, CT scan, plain films. Consideration of Admission/Observation Escalation of care including admission/observation considered. I considered the following discharge prescriptions or medication management in the emergency department Medications were administered in the Emergency Department. See MAR. Independent interpretation of the following test(s) in the Emergency Department EKG: See my EKG interpretation above. Test considered but Not performed: MRI: no mri brain. 10/12 10:04 Order name: Basic Metabolic Panel; Complete Time: 11:13 [facility] 10/12 10:04 Order name: CBC with Diff; Complete Time: 11: [facility] 10/12 10:04 Order name: LFT's; Complete Time: 11:13 [facility] 10/12 10:04 Order name: Magnesium; Complete Time: 11: [facility] 10/12 10:04 Order name: NT PRO-BNP; Complete Time: 11: [facility] 10/12 10:04 Order name: PT-INR; Complete Time: 11: [facility] 10/12 10:04 Order name: Troponin HS; Complete Time: 11: [facility] 10/12 10:04 Order name: Lipase; Complete Time: 11: [facility] 10/12 10:04 Order name: Urinalysis w/ reflexes; Complete Time: 11: [facility] 10/12 10:04 Order name: XRAY Chest (1 view); Complete Time: 11: [facility] 10/12 10:04 Order name: CT Stone Protocol; Complete Time: : [facility] 10/12 10:15 Order name: Head Brain Wo Cont; Complete Time: 11: EDMS 10/12 10:04 Order name: Cardiac monitoring; Complete Time: 10: [facility] 10/12 10:04 Order name: EKG - Nurse/Tech; Complete Time: : [facility] 10/12 10:04 Order name: IV Saline Lock; Complete Time: : [facility] 10/12 10:04 Order name: Labs collected and sent; Complete Time: : [facility] 10/12 10:04 Order name: O2 Per Protocol; Complete Time: : [facility] 10/12 10:04 Order name: O2 Sat Monitoring; Complete Time: 10:28 [facility] EC:20 Rate is 84 beats/min. Rhythm is regular. QRS Register is Normal. UT interval is normal. QRS yoandy interval is normal. QT interval is normal. No Q waves. T waves are Normal. Clinical impression: NSR w/ Non-specific ST/T Changes and No evidence of ischemia. Interpreted by me. Reviewed by me. Administered Medications: 10:39 Drug: NS 0.9% IV 1000 ml IV at 1000 ml once; to be given as a bolus over 60 minutes ph Route: IV; Rate: 1000 ml; Site: right hand; 12:13 Follow up: Response: No adverse reaction; IV Status: Completed infusion; IV Intake: ph 1000ml 11:39 Drug: Ondansetron IVP 4 mg IVP once; over 2 minutes Route: IVP; Site: right hand; ph 12:14 Follow up: Response: No adverse reaction ph 11:39 Drug: LevOfloxacin PO 500 mg PO once Route: PO; ph 12:14 Follow up: Response: No adverse reaction ph 11:40 Drug: fentaNYL (PF) IVP 50 mcg IVP once Route: IVP; Site: right hand; ph 12:13 Follow up: Response: No adverse reaction; Pain is decreased ph Disposition Summary: 10/12/24 11:43 Discharge Ordered Notes: Location: Home yoandy Problem: new yoandy Symptoms: have improved yoandy Condition: Stable yoandy Diagnosis - Headache yoandy - UTI/ Urinary tract infection, site not specified yoandy - Nausea with vomiting, unspecified yoandy Followup: yoandy - With: Private Physician - When: 1 - 2 days - Reason: Recheck today's complaints, Continuance of care, Re-evaluation by your physician Discharge Instructions: - Discharge Summary Sheet yoandy - Dysuria yoandy - General Headache Without Cause yoandy - Nausea, Adult yoandy - Urinary Tract Infection, Adult yoandy - Nausea and Vomiting, Adult, [id number] yoandy - Urinary Tract Infection, Adult, [id number] yoandy - General Headache Without Cause, [id number] [facility] Forms: - Medication Reconciliation Form [facility] - Antibiotic Education yoandy - Prescription Opioid Use yoandy - Patient Portal Instructions [facility] - Leadership Thank You Letter [facility] Prescriptions: - ondansetron 4 mg Oral Tablet,disintegrating - take 1 tablet ORAL route every 8 hours prn; 20 tablet; Refills: 0, Product [facility] Selection Permitted - levofloxacin 250 mg Oral tablet - take 1 tablet ORAL route once daily begin 10/13/24; 7 tablet; Refills: 0, [facility] Product Selection Permitted - Tylenol-Codeine #3 300mg-30mg Oral tablet - take 2 tablets ORAL route every 6 hours As needed; 16 tablet; Refills: 0, [facility] Product Selection Permitted Signatures: Dispatcher [employer] EDJuwan Rich MD MD cha Williams, Irene, RN RN iw Viviana Sweeney RN RN ph Corrections: (The following items were deleted from the chart) 10:05 10:05 Stone Protocol+CT.RAD.BRZ ordered. EDMS EDMS 10:25 10:15 Head Brain Wo Cont+CT.RAD.BRZ ordered. EDMS EDMS
[2024-10-12 12:46] VITALS: BP 139/85; TEMP 97.2; O2SAT 99
--- NOTE | 2024-10-13 12:38 | EKG ---
Test Date: 2024-10-12 Test Time: 10:13:59 Punch Finisher: JAN MEASUREMENT RESULTS: Intervals: Rate: 84 CT: 146 QRSD: 74 QT: 344 QTc: 406 [place]: P: 43 CT: 146 QRS: 29 T: 67 INTERPRETIVE STATEMENTS: Normal sinus rhythm Nonspecific T wave abnormality Abnormal ECG Compared to ECG 09/02/2024 10:08:42 No significant changes Electronically Signed On 10-13-24 12:36:33 CDT by Agustin Vargas
== END 2024-10-12 12:14 | disposition home or self-care (01) ==
LOC: ER 09:35
DX: R51.9 Headache, unspecified (principal); N39.0 Urinary tract infection, site not specified; R11.2 Nausea with vomiting, unspecified
CPT/HCPCS: 96361; 93005; 85025; 81001; 80048; 36415; 83735; 85610; 80076; 84484; 83690; 83880; 70450; 76377; 74176; 71045; 96375; 96374; 99285; J3010; J2405; J7030

== ENCOUNTER 2025-02-01 09:35 | Emergency (ER) | payer OTHER ==
--- NOTE | 2025-02-01 10:22 | RAD REPORT ---
EXAMINATION: ONE VIEW CHEST XR CLINICAL INDICATION: CHEST PAIN TECHNIQUE: Frontal chest projection is submitted. Examination is limited by patient positioning and t echnique. COMPARISON: 10/12/2024, 02/26/2024 FINDINGS: The lungs are diffusely emphysematous but grossly clear. The heart is moderately enlarged in size. No displaced fractures identified. Posterior left thoracic cage deformity, chronic. IMPRESSION: No acute intrathoracic abnormalities.
[2025-02-01 10:23] LABS: Absolute Lymphocytes (CBC) 1.8 K/uL (0.7-4.9); Hematocrit 43.0 % (36.0-45.0); Hemoglobin 14.3 g/dL (12.0-15.0); MCH 30.2 pg (27.0-35.0); MCHC 33.3 g/dL (32.0-36.0); MCV 90.7 fL (80-100); MPV 8.4 fL (7.6-11.3); Nucleated RBC Absolute Count 0.0 (0-0); Nucleated Red Blood Cells % 0.0 % (0-0); RBC Red Blood Cell Count 4.74 M/uL (3.86-4.86); White Blood Count 4.20 thou/uL (4.3-10.9)
[2025-02-01] MEDS ORDERED: KETOROLAC 30 MG/ML INJ ONE (10:25)
[2025-02-01] MEDS ORDERED: ONDANSETRON 4 MG/2 ML VIAL ONE (10:25)
[2025-02-01 10:31] LABS: PT Prothrombin Time 12.6 SECONDS (10-13.0); Protime INR 1.12
[2025-02-01 10:41] LABS: Influenza A Ag Negative; Influenza B Ag Negative; SARS-CoV-2 Antigen Rapid Res Negative (Negative)
[2025-02-01 10:47] LABS: ALT/SGPT 16.0 U/L (13-56); Albumin 3.3 g/dL (3.4-5.0); Albumin/Globulin Ratio 0.9 (1.1-1.8); Alkaline Phosphatase 125.0 U/L (45-117); Anion Gap 8.9 mEq/L (5.0-15.0); BUN Blood Urea Nitrogen 11.0 mg/dL (7-18); Bilirubin Indirect, Calculated 1.2 mg/dL (0.2-0.8); Globulin 3.6 g/dL (2.3-3.5); Glucose Level 80.0 mg/dL (74-106); Lipase 21.0 U/L (13-75); NT PRO-BNP 133.0 pg/mL (<125); Troponin High Sensitivity 3.3 pg/mL (<58.9)
[2025-02-01 10:48] LABS: AST/SGOT 28.0 U/L (15-37); Magnesium 2.1 mg/dL (1.6-2.4); Potassium 3.9 mEq/L (3.5-5.1)
--- NOTE | 2025-02-01 10:50 | ER ---
Nurse's Notes [facility] Name: Toshia Barone Age: 70 yrs Sex: Female : 1955 Arrival Date: 02/01/2025 Time: 09:35 Bed 18 Private MD: Diagnosis: Chest pain, unspecified Presentation: 02/01 09:53 Chief complaint: Patient states: Cough, SOB with exertion, fatigue, weak, N/V/D for 10 ll1 days. Coronavirus screen: Client denies travel out of the [place] in the last 14 days. congestion, cough unrelated to allergies, diarrhea, fatigue, nausea, vomiting. Client presents with at least one sign or symptom that may indicate coronavirus-19. Standard/surgical mask placed on the client. Ebola Screen: Patient denies travel to an Ebola-affected area in the 21 days before illness onset. Initial Sepsis Screen: Does the patient meet any 2 criteria? No. Patient's initial sepsis screen is negative. Does the patient have a suspected source of infection? No. Patient's initial sepsis screen is negative. Risk Assessment: Do you want to hurt yourself or someone else? Patient reports no desire to harm self or others. Onset of symptoms was January 22, 2025. 09:53 Method Of Arrival: Ambulatory ll1 09:53 Acuity: SHARON 3 ll1 Historical: - Allergies: 09:56 methylphenidate HCl; ll1 09:56 PENICILLINS; ll1 09:56 Reglan; ll1 09:56 Ritalin; ll1 - PMHx: 09:56 B12 deficiency; CHF; COPD; CVA; diabetes mellitus; DVT; fatty liver; GERD; ll1 Hyperlipidemia; Hypertension; Hypothyroidism; Kidney stones; Myocardial infarction; Pancreatitis; TIA; - PSHx: 09:56 Cholecystectomy; Left upper lobe removed from lung; Total abdominal hysterectomy; ll1 - Immunization history:: Adult Immunizations up to date. - Social history:: Smoking status: Patient denies any tobacco usage or history of. Screenin:30 [facility] ED Fall Risk Assessment (Adult) History of falling in the last 3 months, iw including since admission No falls in past 3 months (0 pts) Confusion or Disorientation No (0 pts) Intoxicated or Sedated No (0 pts) Impaired Gait No (0 pts) Mobility Assist Device Used No (0 pt) Altered Elimination No (0 pt) Score/Fall Risk Level 0 - 2 = Low Risk Oriented to surroundings, Maintained a safe environment. Abuse screen: Denies threats or abuse. Denies injuries from another. Nutritional screening: No deficits noted. Tuberculosis screening: No symptoms or risk factors identified. Assessment: 10:00 General: Appears in no apparent distress. Behavior is calm, cooperative. Pain: iw Complains of pain in chest Pain does not radiate. Neuro: Level of Consciousness is awake, alert, obeys commands, Oriented to person, place, time, situation, Moves all extremities. Full function. Cardiovascular: Patient's skin is warm and dry. Respiratory: Respiratory effort is even, unlabored, Respiratory pattern is regular, symmetrical. 11:30 Reassessment: Patient appears in no apparent distress at this time. Patient and/or iw family updated on plan of care and expected duration. Pain level reassessed. Patient is alert, oriented x 3, equal unlabored respirations, skin warm/dry/pink. Vital Signs: 09:53 BP 172 / 80; Pulse 73; Resp 18; Temp 98; Pulse Ox 100% on R/A; Weight 78.93 kg; Height ll1 5 ft. 5 in. ; Pain 6/10; 11:30 BP 143 / 81; Pulse 74; Resp 16; Pulse Ox 98% on R/A; Pain 0/10; iw 09:53 Body Mass Index 28.95 (78.93 kg, 165.1 cm) ll1 09:53 Pain Scale: Adult ll1 11:30 Pain Scale: Adult iw ED Course: 09:39 Patient arrived in ED. al6 09:40 Lakshmi Miller MD is Attending Physician. sp3 09:40 Vani Mejia PA-C is PHCP. sb4 09:45 Edel Tong, RN is Primary Nurse. iw 09:56 Triage completed. ll1 09:56 Arm band placed on Patient placed in an exam room, on a stretcher. ll1 09:56 Patient has correct armband on for positive identification. Client placed on continuous iw cardiac and pulse oximetry monitoring. NIBP monitoring applied. potline monitor on. 10:14 Initial lab(s) drawn, by me, sent to lab. Inserted saline lock: 24 gauge in right hand, iw using aseptic technique. Blood collected. Flushed with 10 mL NS. 10:17 XRAY Chest (1 view) In Process Unspecified. EDMS 11:31 No provider procedures requiring assistance completed. IV discontinued, intact, iw bleeding controlled, No redness/swelling at site. Pressure dressing applied. Patient maintains SpO2 saturation greater than 95% on room air. Administered Medications: 10:31 Drug: Ketorolac IVP 15 mg IVP once Route: IVP; Site: right hand; iw 10:31 Drug: Ondansetron IVP 4 mg IVP once; over 2 minutes Route: IVP; Site: right hand; iw Medication: 11:31 VIS not applicable for this client. iw Outcome: 10:50 Discharge ordered by MD. oneal 11:31 Discharged to home ambulatory, iw 11:31 Condition: good 11:31 Discharge instructions given to patient, Instructed on discharge instructions, follow up and referral plans. Demonstrated understanding of instructions, follow-up care, 11:32 Patient left the ED. iw Signatures: Dispatcher [employer] EDMS Edel Tong RN RN iw Per Baxter RN RN ll1 Lakshmi Miller MD MD sp3 aVni Mejia, PA-C PA-C sb4 Yessi Galarza6
--- NOTE | 2025-02-01 10:50 | EDPHYS ---
Physician Documentation [facility] Name: Toshia aBrone Age: 70 yrs Sex: Female : 1955 Arrival Date: 02/01/2025 Time: 09:35 Bed 18 Private MD: ED Physician Lakshmi Miller HPI: 02/01 10:01 This 70 yrs old Female presents to ER via Ambulatory with complaints of Chest sp3 Pain, Vomiting. 10:01 70-year-old female with history of COPD, CVA, diabetes, fatty liver, hyperlipidemia, sp3 prior CHF presents with chief complaint chest pain for the last [address] Block in [place]. She denies any other symptoms including shortness of breath, back pain, abdominal pain, nausea, vomiting, diarrhea, fever but does state that she feels fatigued. No known sick contacts. ROS otherwise negative.. Historical: - Allergies: 09:56 methylphenidate HCl; ll1 09:56 PENICILLINS; ll1 09:56 Reglan; ll1 09:56 Ritalin; ll1 - PMHx: 09:56 B12 deficiency; CHF; COPD; CVA; diabetes mellitus; DVT; fatty liver; GERD; ll1 Hyperlipidemia; Hypertension; Hypothyroidism; Kidney stones; Myocardial infarction; Pancreatitis; TIA; - PSHx: 09:56 Cholecystectomy; Left upper lobe removed from lung; Total abdominal hysterectomy; ll1 - Immunization history:: Adult Immunizations up to date. - Social history:: Smoking status: Patient denies any tobacco usage or history of. ROS: 10:02 Constitutional: Negative for fever, chills, and weight loss, Eyes: Negative for injury, sp3 pain, redness, and discharge, Neck: Negative for injury, pain, and swelling, Respiratory: Negative for shortness of breath, cough, wheezing, and pleuritic chest pain, Abdomen/GI: Negative for abdominal pain, nausea, vomiting, diarrhea, and constipation, : Negative for injury, bleeding, discharge, and swelling, MS/Extremity: Negative for injury and deformity, Skin: Negative for injury, rash, and discoloration, Neuro: Negative for headache, weakness, numbness, tingling, and seizure, Psych: Negative for depression, anxiety, suicide ideation, homicidal ideation, and hallucinations, Allergy/Immunology: Negative for hives, rash, and allergies, Endocrine: Negative for neck swelling, polydipsia, polyuria, polyphagia, and marked weight changes, Hematologic/Lymphatic: Negative for swollen nodes, abnormal bleeding, and unusual bruising, 10:02 All other systems are negative, Exam: 10:03 Constitutional: This is a well developed, well nourished patient who is awake, alert, sp3 and in no acute distress. Head/Face: Normocephalic, atraumatic. Eyes: Pupils equal round and reactive to light, extra-ocular motions intact. Lids and lashes normal. Conjunctiva and sclera are non-icteric and not injected. Cornea within normal limits. Periorbital areas with no swelling, redness, or edema. Neck: Trachea midline, no thyromegaly or masses palpated, and no cervical lymphadenopathy. Supple, full range of motion without nuchal rigidity, or vertebral point tenderness. No Meningismus. Chest/axilla: Normal chest wall appearance and motion. Nontender with no deformity. No lesions are appreciated. Cardiovascular: Regular rate and rhythm with a normal S1 and S2. No gallops, murmurs, or rubs. Normal PMI, no JVD. No pulse deficits. Respiratory: Lungs have equal breath sounds bilaterally, clear to auscultation and percussion. No rales, rhonchi or wheezes noted. No increased work of breathing, no retractions or nasal flaring. Abdomen/GI: Soft, non-tender, with normal bowel sounds. No distension or tympany. No guarding or rebound. No evidence of tenderness throughout. Back: No spinal tenderness. No costovertebral tenderness. Full range of motion. Skin: Warm, dry with normal turgor. Normal color with no rashes, no lesions, and no evidence of cellulitis. MS/ Extremity: Pulses equal, no cyanosis. Neurovascular intact. Full, normal range of motion. Neuro: Awake and alert, GCS 15, oriented to person, place, time, and situation. Cranial nerves II-XII grossly intact. Motor strength 5/5 in all extremities. Sensory grossly intact. Cerebellar exam normal. Normal gait. Psych: Awake, alert, with orientation to person, place and time. Behavior, mood, and affect are within normal limits. 10:03 ECG was reviewed by the Attending Physician. EKG demonstrates normal sinus rhythm at 77 bpm with normal intervals, normal QRS, Q waves in leads III and aVF nonspecific ST/T changes without evidence of acute ischemia. Vital Signs: 09:53 BP 172 / 80; Pulse 73; Resp 18; Temp 98; Pulse Ox 100% on R/A; Weight 78.93 kg; Height ll1 5 ft. 5 in. ; Pain 6/10; 11:30 BP 143 / 81; Pulse 74; Resp 16; Pulse Ox 98% on R/A; Pain 0/10; iw 09:53 Body Mass Index 28.95 (78.93 kg, 165.1 cm) ll1 09:53 Pain Scale: Adult ll1 11:30 Pain Scale: Adult iw MDM: 09:40 Medical Screening Exam initiated sp3 10:03 Data reviewed: vital signs, nurses notes, old medical records, lab test result(s), EKG, sp3 radiologic studies. ED course: 70-year-old female with chest pain for 10 days. Well-appearing. Differential diagnosis includes viral illness, COVID-19, influenza, acute coronary syndrome, pneumonia, pleuritic pain, musculoskeletal pain, among others. Clinically on mildly suspicious of PE, TAD or other process. Workup will include EKG, chest x-ray, general labs including troponin and lipase, and general supportive care with disposition pending workup and patient course. Patient resting comfortably in no acute distress with no acute intervention indicated.. 10:50 ED course: Full workup negative. Will safely discharge patient home at this time.. sp3 02/01 09:41 Order name: Basic Metabolic Panel; Complete Time: 10:49 3 02/01 09:41 Order name: CBC with Diff; Complete Time: 11:13 sp3 02/01 09:41 Order name: LFT's; Complete Time: 10:49 sp3 02/01 09:41 Order name: Magnesium; Complete Time: 10:49 3 02/01 09:41 Order name: NT PRO-BNP; Complete Time: 10:49 3 02/01 09:41 Order name: PT-INR; Complete Time: 10:49 sp3 02/01 09:41 Order name: Troponin HS; Complete Time: 10:49 3 02/01 09:51 Order name: COVID-19 Ag + Flu A+B Ag; Complete Time: 10:49 3 08/12 10:20 Order name: Lipase; Complete Time: 10:49 EDMS 02/01 11:13 Order name: CBC Smear Scan; Complete Time: 11:13 EDMS 02/01 09:41 Order name: XRAY Chest (1 view); Complete Time: 10:24 sp3 02/01 09:41 Order name: EKG; Complete Time: 09:41 sp3 02/01 09:41 Order name: Cardiac monitoring; Complete Time: 10:15 sp3 02/01 09:41 Order name: EKG - Nurse/Tech; Complete Time: 10:15 sp3 02/01 09:41 Order name: IV Saline Lock; Complete Time: 10:15 sp3 02/01 09:41 Order name: Labs collected and sent; Complete Time: 10:15 sp3 02/01 09:41 Order name: O2 Per Protocol; Complete Time: 10:15 sp3 02/01 09:41 Order name: O2 Sat Monitoring; Complete Time: 10:15 sp3 Administered Medications: 10:31 Drug: Ketorolac IVP 15 mg IVP once Route: IVP; Site: right hand; iw 10:31 Drug: Ondansetron IVP 4 mg IVP once; over 2 minutes Route: IVP; Site: right hand; iw Disposition Summary: 02/01/25 10:50 Discharge Ordered Notes: Location: Home sp3 Condition: Stable sp3 Diagnosis - Chest pain, unspecified sp3 Followup: sp3 - With: Private Physician - When: Upon discharge from the Emergency Department - Reason: Continuance of care Discharge Instructions: - Discharge Summary Sheet sp3 - Nonspecific Chest Pain, Adult sp3 Forms: - Medication Reconciliation Form sp3 - Antibiotic Education sp3 - Prescription Opioid Use sp3 - Patient Portal Instructions sp3 - Leadership Thank You Letter sp3 Signatures: Dispatcher [employer] EDEdel Barroso RN RN iw Per Baxter RN RN ll1 Lakshmi Miller MD MD sp3 Corrections: (The following items were deleted from the chart) 10:20 09:57 LIPASE+C.LAB.BRZ ordered. EDMS EDMS
[2025-02-01 11:12] LABS: White Blood Cell Scan OK (OK)
[2025-02-01 11:13] LABS: Blood Morphology Comment NOT SEEN (NOT SEEN)
[2025-02-01 11:36] VITALS: TEMP 98
[2025-02-01 11:37] VITALS: BP 143/81; O2SAT 98
== END 2025-02-01 11:32 | disposition home or self-care (01) ==
LOC: ER 09:35
DX: R07.9 Chest pain, unspecified (principal); I10 Essential (primary) hypertension; I50.9 Heart failure, unspecified; J44.9 Chronic obstructive pulmonary disease, unspecified; Z11.52 Encounter for screening for COVID-19
CPT/HCPCS: 93005; 85025; 80048; 36415; 83735; 85610; 80076; 84484; 83690; 83880; 71045; 96375; 96374; 99285; 87428; J2405

== ENCOUNTER 2025-04-01 13:29 | Inpatient (IN) | payer OTHER ==
--- NOTE | 2025-04-01 14:18 | RAD REPORT ---
EXAMINATION: ONE VIEW CHEST XR CLINICAL INDICATION: COUGH TECHNIQUE: Frontal chest projection is submitted. Examination is limited by patient positioning and t echnique. COMPARISON: 02/01/2025 FINDINGS: Lungs are mildly emphysematous but clear. The heart is moderately enlarged in size. Diffuse osteopeni a with chronic deformity left thoracic cage. Aortic atherosclerosis. IMPRESSION: No acute intrathoracic abnormalities.
[2025-04-01] MEDS ORDERED: NA CHLORIDE 0.9% 1,000 ML ONE (15:00)
[2025-04-01] MEDS ORDERED: FAMOTIDINE 20 MG/2 ML VIAL IV ONE (15:00)
[2025-04-01 15:32] LABS: Sqamous Epithelial <5 /HPF (None Seen); Urine Culture Reflex Order REFLEXED; Urine Microscopic Reflex YN ORDER UMIC
[2025-04-01 15:45] LABS: Absolute Lymphocytes (CBC) 2.3 K/uL (0.7-4.9); Hematocrit 39.1 % (36.0-45.0); Hemoglobin 13.0 g/dL (12.0-15.0); MCH 29.7 pg (27.0-35.0); MCHC 33.2 g/dL (32.0-36.0); MCV 89.5 fL (80-100); MPV 8.1 fL (7.6-11.3); Nucleated RBC Absolute Count 0.0 (0-0); Nucleated Red Blood Cells % 0.1 % (0-0); RBC Red Blood Cell Count 4.38 M/uL (3.86-4.86); White Blood Count 7.50 thou/uL (4.3-10.9)
[2025-04-01 15:50] LABS: PT Prothrombin Time 13.6 SECONDS (10-13.0); Protime INR 1.21
[2025-04-01 16:16] LABS: ALT/SGPT 18.0 U/L (13-56); Albumin 3.1 g/dL (3.4-5.0); Albumin/Globulin Ratio 0.9 (1.1-1.8); Alkaline Phosphatase 116.0 U/L (45-117); Anion Gap 8.0 mEq/L (5.0-15.0); BUN Blood Urea Nitrogen 16.0 mg/dL (7-18); Bilirubin Indirect, Calculated 0.9 mg/dL (0.2-0.8); Globulin 3.5 g/dL (2.3-3.5); Glucose Level 63.0 mg/dL (74-106); Lipase 42.0 U/L (13-75); NT PRO-BNP 118.0 pg/mL (<125); Troponin High Sensitivity 3.1 pg/mL (<58.9)
[2025-04-01 16:21] LABS: AST/SGOT 17.0 U/L (15-37); Magnesium 2.1 mg/dL (1.6-2.4); Potassium 4.0 mEq/L (3.5-5.1)
[2025-04-01] MEDS ORDERED: ONDANSETRON 4 MG/2 ML VIAL ONE (16:52)
[2025-04-01] MEDS ORDERED: ASPIRIN 81 MG CHEWABLE TABLET ONE (16:53)
[2025-04-01] MEDS ORDERED: CEFEPIME 1 GM/VIAL ONE (16:54)
[2025-04-01] MEDS ORDERED: MORPHINE 4 MG/ML SYR ONE (16:54)
[2025-04-01] MEDS ORDERED: NA CHLORIDE 0.9% 100 ML ONE (16:54)
--- NOTE | 2025-04-01 17:08 | RAD REPORT ---
EXAM: CTA of the chest, abdomen and pelvis HISTORY: Chest pain and back pain DISSECTION COMPARISON: None TECHNIQUE: Multiple contiguous axial images were obtained a CTA of the chest and abdomen with contras t per aortic dissection protocol. This involves 3D reconstructions, MIPs, volume rendered images and/or shaded surface rendering. One or more of the following dose reduction techniques were used: Au tomated exposure control, adjustment of the mA and/or kV according to patient size, and/or iterative reconstruction. Unless otherwise specified, incidental findings do not require dedicated im aging follow-up. Sagittal and coronal 3-D MIP reformats were performed. FINDINGS: PULMONARY ARTERIES: Normal in caliber without filling defects to suggest pulmonary emboli. ASCENDING THORACIC AORTA: Normal caliber without evidence of dissection or aneurysmal dilatation. DESCENDING THORACIC AORTA: Normal caliber without evidence of dissection or aneurysmal dilatation. ABDOMINAL AORTA: Normal caliber without evidence of dissection or aneurysmal dilatation. CELIAC TRUNK: Moderate ostial atherosclerosis. SMA: Mild ostial atherosclerosis. CAMILLE: Patent RENAL ARTERIES: Small accessory left renal artery. Mild ostial hard plaquing present bilaterally. MEDIASTINUM: No hilar or mediastinal lymphadenopathy. LUNGS: 7 mm nodule is seen in the anterior left upper lobe. Mild emphysema is possible. PLEURAL SPACE: No pleural effusion or pneumothorax. LIVER: Prominent diffuse fatty liver.. Cholecystectomy clips. SPLEEN: Unremarkable. PANCREAS: Unremarkable. KIDNEYS: Post ablation changes posterior inferior right kidney. No solid renal mass. No hydronephrosi s. Benign left renal cyst. ADRENALS: Unremarkable. BOWEL: Moderate stool is retained throughout the colon.. RETROPERITONEUM: No lymphadenopathy. BONES: Moderate lower lumbar spondylosis. Mild lumbar levoscoliosis. IMPRESSION: No evidence of thoracic or abdominal aortic aneurysm or dissection. 7 mm nodule in the left upper lobe anteriorly. Recommend follow-up CT chest in 6 months for reassessm ent.
--- NOTE | 2025-04-01 17:12 | EDPHYS ---
Physician Documentation [facility] Name: Toshia Barone Age: 70 yrs Sex: Female : 1955 Arrival Date: 04/01/2025 Time: 13:29 Bed 18 Private MD: KINGS Physician Juwan Katz HPI: 04/01 16:49 This 70 yrs old Female presents to ER via Ambulatory with complaints of Chest yoandy Pain, Vomiting, Back Pain, Weakness. 16:49 The patient or guardian reports chest pain that is located primarily in the anterior [facility] chest wall, bilaterally. Historical: - Allergies: 13:44 methylphenidate HCl; me1 13:44 PENICILLINS; me1 13:44 Reglan; me1 13:44 Ritalin; me1 - PMHx: 13:44 B12 deficiency; CHF; COPD; CVA; diabetes mellitus; DVT; fatty liver; GERD; me1 Hyperlipidemia; Hypertension; Hypothyroidism; Kidney stones; Myocardial infarction; Pancreatitis; TIA; - PSHx: 13:44 Total abdominal hysterectomy; Left upper lobe removed from lung; Cholecystectomy; me1 - Immunization history:: Adult Immunizations up to date. - Infectious Disease History:: Denies. - Social history:: Smoking status: Patient/guardian denies using tobacco, but has a distant history of tobacco abuse. ROS: 16:57 Constitutional: Negative for fever, chills, and weight loss, Eyes: Negative for injury, yoandy pain, redness, and discharge, ENT: Negative for injury, pain, and discharge, Neck: Negative for injury, pain, and swelling, Respiratory: Negative for shortness of breath, cough, wheezing, and pleuritic chest pain, Abdomen/GI: Negative for abdominal pain, nausea, vomiting, diarrhea, and constipation, Back: Negative for injury and pain, : Negative for injury, bleeding, discharge, and swelling, MS/Extremity: Negative for injury and deformity, Skin: Negative for injury, rash, and discoloration, Neuro: Negative for headache, weakness, numbness, tingling, and seizure, Psych: Negative for depression, anxiety, suicide ideation, homicidal ideation, and hallucinations, Allergy/Immunology: Negative for hives, rash, and allergies, Endocrine: Negative for neck swelling, polydipsia, polyuria, polyphagia, and marked weight changes, Hematologic/Lymphatic: Negative for swollen nodes, abnormal bleeding, and unusual bruising, 16:57 Cardiovascular: Positive for chest pain, of the chest, 16:57 Abdomen/GI: Positive for abdominal pain, of the epigastric area, 16:57 Back: Positive for pain at rest, of the lumbar area, Exam: 16:57 Constitutional: This is a well developed, well nourished patient who is awake, alert, yoandy and in no acute distress. Head/Face: Normocephalic, atraumatic. Eyes: Pupils equal round and reactive to light, extra-ocular motions intact. Lids and lashes normal. Conjunctiva and sclera are non-icteric and not injected. Cornea within normal limits. Periorbital areas with no swelling, redness, or edema. ENT: Nares patent. No nasal discharge, no septal abnormalities noted. Tympanic membranes are normal and external auditory canals are clear. Oropharynx with no redness, swelling, or masses, exudates, or evidence of obstruction, uvula midline. Mucous membranes moist. Neck: Trachea midline, no thyromegaly or masses palpated, and no cervical lymphadenopathy. Supple, full range of motion without nuchal rigidity, or vertebral point tenderness. No Meningismus. Chest/axilla: Normal chest wall appearance and motion. Nontender with no deformity. No lesions are appreciated. Respiratory: Lungs have equal breath sounds bilaterally, clear to auscultation and percussion. No rales, rhonchi or wheezes noted. No increased work of breathing, no retractions or nasal flaring. Back: No spinal tenderness. No costovertebral tenderness. Full range of motion. Female : Normal external genitalia. Skin: Warm, dry with normal turgor. Normal color with no rashes, no lesions, and no evidence of cellulitis. MS/ Extremity: Pulses equal, no cyanosis. Neurovascular intact. Full, normal range of motion., bilateral aka Neuro: Awake and alert, GCS 15, oriented to person, place, time, and situation. Cranial nerves II-XII grossly intact. Motor strength 5/5 in all extremities. Sensory grossly intact. Cerebellar exam normal. Normal gait. Psych: Awake, alert, with orientation to person, place and time. Behavior, mood, and affect are within normal limits. 16:57 Cardiovascular: Rate: normal, actual rate is 79 bpm, Rhythm: regular, Pulses: Pulses are 4+ in bilateral radial, brachial, femoral, popliteal, posterior tibial and and dorsalis pedis arteries.. Heart sounds: normal, normal S1and S2, no S3 or S4, no murmur, no rub, no gallop, Edema: is not appreciated, JVD: is not appreciated, 16:57 ECG was reviewed by the Attending Physician. 16:57 Musculoskeletal/extremity: DVT Exam: No signs of deep vein thrombosis. no pain, no swelling, no tenderness, negative Homans' sign noted on exam, no appreciated bluish discoloration, no erythema, no increased warmth, Vital Signs: 13:42 BP 163 / 94; Pulse 81; Resp 18; Temp 98; Pulse Ox 99% ; Weight 78.47 kg; Height 5 ft. 5 me1 in. ; Pain 7/10; 14:30 BP 138 / 74; Pulse 76; Resp 18; Pulse Ox 100% ; rg5 15:20 BP 136 / 81; Pulse 75; Pulse Ox 100% ; rg5 16:15 BP 147 / 87; Pulse 72; Resp 18; Pulse Ox 100% ; rg5 17:25 BP 141 / 94; Pulse 73; Pulse Ox 97% ; rg5 18:10 BP 154 / 87; Pulse 77; Resp 18; Pulse Ox 100% ; rg5 19:34 BP 159 / 99; Pulse 74; Resp 18; Pulse Ox 100% ; Pain 0/10; rg5 13:42 Body Mass Index 28.79 (78.47 kg, 165.1 cm) me1 13:42 Pain Scale: Adult me1 19:34 Pain Scale: Adult rg5 MDM: 13:33 Medical Screening Exam initiated yoandy 17:02 Differential diagnosis: abnormal EKG, acute myocardial infarction, acute pericarditis, yoandy anxiety, coronary artery disease chest wall pain, cholecystitis, Cholelithiasis costochondritis, esophagitis, gastritis, gastroesophageal reflux disease (GERD), herpes zoster, hiatal hernia, pancreatitis, peptic ulcer disease, pericarditis, pleurisy, pneumonia, pneumothorax, pulmonary embolus, stable angina, thoracic aortic disection, unstable angina. HEART Score: History: Moderately Suspicious (1), ECG: Non specific repolarization disturbance / LBTB / PM (1), Age: > or = 65 years (2), Risk Factors: > or = 3 Risk factors for atherosclerotic disease (2), [Hypercholesterolemia] [Hypertension] [DM] [+ Family HX] [Obesity] Troponin: < or = 1 x Normal Limit (0). The patient was given aspirin in the Emergency Department. RAMON Risk Score: 1 - patient's age is greater or equal to 65 years, 1 - Three or more CAD risk factors, 1- Known CAD, 1 - ASA use in past 7 days, 1 - Recent [<24hrs] Severe Angina, TOTAL SCORE = 5. Data reviewed: vital signs, nurses notes, lab test result(s), EKG, radiologic studies, CT scan, plain films. Consideration of Admission/Observation Patient was admitted/placed on observation. Escalation of care including admission/observation considered. I considered the following discharge prescriptions or medication management in the emergency department Medications were administered in the Emergency Department. See MAR. Independent interpretation of the following test(s) in the Emergency Department EKG: See my EKG interpretation above. Test considered but Not performed: Ultrasound no 2 d echo. Historians other than the Patient: pt well informed. Care significantly affected by the following chronic conditions: Diabetes, Hypertension, Congestive Heart Failure, Chronic Obstructive Pulmonary Disease, Obesity. Counseling: I had a detailed discussion with the patient and/or guardian regarding the historical points, exam findings, and any diagnostic results supporting the discharge/admit diagnosis, the presence of at least one elevated blood pressure reading (>120/80) during this emergency department visit, lab results, radiology results, the need for further work-up and treatment in the hospital. 04/01 13:39 Order name: Basic Metabolic Panel; Complete Time: 16:45 04/01 13:39 Order name: CBC with Diff; Complete Time: 16:45 04/01 13:39 Order name: LFT's; Complete Time: 16:45 04/01 13:39 Order name: Magnesium; Complete Time: 16:45 04/01 13:39 Order name: NT PRO-BNP; Complete Time: 16:45 04/01 13:39 Order name: PT-INR; Complete Time: 16:45 04/01 13:39 Order name: Troponin HS; Complete Time: 16:45 04/01 13:39 Order name: Lipase; Complete Time: 16:45 [facility] 04/01 13:39 Order name: UA Rfx Egra Cult if indicated; Complete Time: 16:45 yoandy 04/01 15:39 Order name: Urine Culture EDMS 04/01 19:19 Order name: Basic Metabolic Panel EDMS 04/01 19:19 Order name: Basic Metabolic Panel EDMS 04/01 19:19 Order name: Basic Metabolic Panel EDMS 04/01 19:19 Order name: Basic Metabolic Panel EDMS 04/01 19:19 Order name: CBC with Automated Diff EDMS 04/01 19:19 Order name: CBC with Automated Diff EDMS 04/01 19:19 Order name: CBC with Automated Diff EDMS 04/01 19:19 Order name: CBC with Automated Diff EDMS 04/01 19:19 Order name: Troponin High Sensitivity EDMS 04/01 19:19 Order name: Troponin High Sensitivity EDMS 04/01 19:19 Order name: Troponin High Sensitivity EDMS 04/01 19:19 Order name: Troponin High Sensitivity EDMS 04/01 19:19 Order name: Troponin High Sensitivity EDMS 04/01 13:39 Order name: XRAY Chest (1 view); Complete Time: 16:45 yoandy 04/01 13:39 Order name: CT Aorta for Dissection [facility] 04/01 19:19 Order name: Echo with Doppler EDMS 04/01 13:39 Order name: EKG; Complete Time: 13:39 yoandy 04/01 19:19 Order name: EKG Electrocardiogram EDMS 04/01 19:19 Order name: EKG Electrocardiogram EDMS 04/01 19:19 Order name: EKG Electrocardiogram EDMS 04/01 19:19 Order name: EKG Electrocardiogram EDMA 04/01 13:39 Order name: Cardiac monitoring; Complete Time: 15:05 yoandy 04/01 13:39 Order name: EKG - Nurse/Tech; Complete Time: 13:58 yoandy 04/01 13:39 Order name: IV Saline Lock; Complete Time: 15:05 yoandy 04/01 13:39 Order name: Labs collected and sent; Complete Time: 15:37 yoandy 04/01 13:39 Order name: O2 Per Protocol; Complete Time: 15:05 yoandy 04/01 13:39 Order name: O2 Sat Monitoring; Complete Time: 15:05 [facility] EC:57 Rate is 79 beats/min. Rhythm is regular. QRS [place] is Normal. ID interval is normal. QRS yoandy interval is normal. QT interval is normal. No Q waves. T waves are Normal. No ST changes noted. Clinical impression: NSR w/ Non-specific ST/T Changes and No evidence of ischemia. Interpreted by me. Reviewed by me. Administered Medications: 15:04 Drug: Famotidine IVP 20 mg IVP once; dilute with 10 mL 0.9% NaCl; give over 2 minutes rg5 Route: IVP; Site: right antecubital; 15:39 Follow up: Response: No adverse reaction rg5 15:04 Drug: NS 0.9% IV 500 ml 500 ml IV at 1 bolus once; to be given as a bolus over 30 rg5 minutes Volume: 500 ml; Route: IV; Rate: 1 bolus; Site: right antecubital; 15:35 Follow up: IV Intake: 500ml rg5 15:35 Follow up: IV Status: Completed infusion; IV Intake: 500ml rg5 15:35 Drug: NS 0.9% IV 500 ml 500 ml IV at 125 ml/hr once Volume: 500 ml; Route: IV; Rate: rg5 125 ml/hr; Site: right antecubital; 19:30 Follow up: IV Status: Completed infusion; IV Intake: 500ml rg5 17:01 Drug: Cefepime IVPB 1 grams IVPB at 200 ml/hr once over 30 mins; (mix in NS 100 mL) rg5 Route: IVPB; Rate: 200 ml/hr; Infused Over: 30 mins; Site: right antecubital; 17:35 Follow up: IV Status: Completed infusion; IV Intake: 100ml rg5 17:01 Drug: Aspirin PO Chewable Tablet 162 mg PO once Route: PO; rg5 18:35 Follow up: Response: No adverse reaction rg5 17:01 Drug: morphine IVP or IV 2 mg IVP once over 4 mins Route: IVP; Infused Over: 4 mins; rg5 Site: right antecubital; 18:35 Follow up: Response: No adverse reaction; Pain is decreased rg5 17:01 Drug: Ondansetron IVP 4 mg IVP once; over 2 minutes Route: IVP; Site: right antecubital;rg5 18:35 Follow up: Response: No adverse reaction rg5 17:34 Drug: morphine IVP or IV 2 mg IVP once over 4 mins Route: IVP; Infused Over: 4 mins; rg5 Site: right antecubital; 18:35 Follow up: Response: No adverse reaction; Pain is decreased rg5 17:51 Drug: GI Cocktail without - (Maalox PO 30 ml, Lidocaine Mucous Membrane 2 % 15 rg5 ml) PO once Route: PO; 18:35 Follow up: Response: No adverse reaction rg5 Disposition Summary: 04/01/25 17:11 Hospitalization Ordered Notes: Hospitalization Status: Observation yoandy Provider: Prince yoandy Muhammad Location: Telemetry/MedSurg (observation) yoandy Condition: Fair yoandy Problem: new yoandy Symptoms: have improved yoandy Bed/Room Type: Standard yoandy Room Assignment: 211(04/01/25 19:25) rv1 Diagnosis - Chest pain, unspecified yoandy - Functional dyspepsia yoandy - Acute cystitis without hematuria yoandy - Essential (primary) hypertension yoandy Forms: - Medication Reconciliation Form yoandy - SBAR form yoandy - Leadership Thank You Letter yoandy Signatures: Dispatcher [employer] EDMS Juwan Katz MD MD cha Villegas, Rebecca rv1 Elinor Fields RN RN me1 Liborio Hernandes RN RN rg5 Corrections: (The following items were deleted from the chart) 13:39 13:39 Angio Aorta For Dissection+CT.RAD.BRZ ordered. EDMA EDMS 19:25 17:11 yoandy rv1
--- NOTE | 2025-04-01 17:12 | ER ---
Nurse's Notes [facility] Name: Toshia Barone Age: 70 yrs Sex: Female : 1955 Arrival Date: 04/01/2025 Time: 13:29 Bed 18 Private MD: Diagnosis: Chest pain, unspecified;Functional dyspepsia;Acute cystitis without hematuria;Essential (primary) hypertension Presentation: 04/01 13:42 Chief complaint: Patient states: started feeling ill 2 days ago with midsternal cp that me1 radiates to bilateral upper back, "squeezing" 12/30, intermittent palpitations, dry cough, sob with exertion, nausea with decreased appetite, generalized weakness, chills and body aches. Coronavirus screen: Vaccine status: Patient reports receiving the 2nd dose of the covid vaccine. Ebola Screen: No symptoms or risks identified at this time. Initial Sepsis Screen: Does the patient meet any 2 criteria? No. Patient's initial sepsis screen is negative. Does the patient have a suspected source of infection? No. Patient's initial sepsis screen is negative. Risk Assessment: Do you want to hurt yourself or someone else? Patient reports no desire to harm self or others. Onset of symptoms was March 30, 2025. 13:42 Method Of Arrival: Ambulatory me1 13:42 Acuity: SHARON 3 me1 Historical: - Allergies: 13:44 methylphenidate HCl; me1 13:44 PENICILLINS; me1 13:44 Reglan; me1 13:44 Ritalin; me1 - PMHx: 13:44 B12 deficiency; CHF; COPD; CVA; diabetes mellitus; DVT; fatty liver; GERD; me1 Hyperlipidemia; Hypertension; Hypothyroidism; Kidney stones; Myocardial infarction; Pancreatitis; TIA; - PSHx: 13:44 Total abdominal hysterectomy; Left upper lobe removed from lung; Cholecystectomy; me1 - Immunization history:: Adult Immunizations up to date. - Infectious Disease History:: Denies. - Social history:: Smoking status: Patient/guardian denies using tobacco, but has a distant history of tobacco abuse. Screenin:00 [facility] ED Fall Risk Assessment (Adult) History of falling in the last 3 months, rg5 including since admission No falls in past 3 months (0 pts) Confusion or Disorientation No (0 pts) Intoxicated or Sedated No (0 pts) Impaired Gait No (0 pts) Mobility Assist Device Used No (0 pt) Altered Elimination No (0 pt) Score/Fall Risk Level 0 - 2 = Low Risk Oriented to surroundings, Maintained a safe environment. Abuse screen: Denies threats or abuse. Nutritional screening: No deficits noted. Tuberculosis screening: No symptoms or risk factors identified. Assessment: 14:00 General: Appears uncomfortable, Behavior is calm, cooperative, appropriate for age. rg5 Pain: Complains of pain in back and chest Pain radiates to back Pain began 3 hours ago. Neuro: Level of Consciousness is awake, alert, obeys commands. Cardiovascular: Reports chest pain, Rhythm is sinus rhythm. Respiratory: Airway is patent Trachea midline. GI: Abdomen is round non-distended. : No signs and/or symptoms were reported regarding the genitourinary system. EENT: No signs and/or symptoms were reported regarding the EENT system. Derm: Skin is intact, Skin is dry, Skin is normal. Musculoskeletal: Circulation, motion, and sensation intact. Range of motion: intact in all extremities. 15:00 Reassessment: No changes from previously documented assessment. Patient and/or family rg5 updated on plan of care and expected duration. Pain level reassessed. Patient is alert, oriented x 3, equal unlabored respirations, skin warm/dry/pink. 16:00 Reassessment: Patient and/or family updated on plan of care and expected duration. Pain rg5 level reassessed. Patient is alert, oriented x 3, equal unlabored respirations, skin warm/dry/pink. 17:00 Reassessment: Patient and/or family updated on plan of care and expected duration. Pain rg5 level reassessed. Patient is alert, oriented x 3, equal unlabored respirations, skin warm/dry/pink. 18:00 Reassessment: Patient and/or family updated on plan of care and expected duration. Pain rg5 level reassessed. Patient is alert, oriented x 3, equal unlabored respirations, skin warm/dry/pink. Patient states symptoms have improved. 19:00 Reassessment: Patient and/or family updated on plan of care and expected duration. Pain rg5 level reassessed. Patient is alert, oriented x 3, equal unlabored respirations, skin warm/dry/pink. Vital Signs: 13:42 BP 163 / 94; Pulse 81; Resp 18; Temp 98; Pulse Ox 99% ; Weight 78.47 kg; Height 5 ft. 5 me1 in. ; Pain 7/10; 14:30 BP 138 / 74; Pulse 76; Resp 18; Pulse Ox 100% ; rg5 15:20 BP 136 / 81; Pulse 75; Pulse Ox 100% ; rg5 16:15 BP 147 / 87; Pulse 72; Resp 18; Pulse Ox 100% ; rg5 17:25 BP 141 / 94; Pulse 73; Pulse Ox 97% ; rg5 18:10 BP 154 / 87; Pulse 77; Resp 18; Pulse Ox 100% ; rg5 19:34 BP 159 / 99; Pulse 74; Resp 18; Pulse Ox 100% ; Pain 0/10; rg5 13:42 Body Mass Index 28.79 (78.47 kg, 165.1 cm) me1 13:42 Pain Scale: Adult me1 19:34 Pain Scale: Adult rg5 ED Course: 13:31 Patient arrived in ED. al6 13:33 Juwan Katz MD is Attending Physician. [facility] 13:44 Triage completed. me1 13:44 Arm band placed on Patient placed in an exam room. me1 13:58 EKG done, by ED staff, reviewed by Juwan Katz MD. me1 14:00 Patient has correct armband on for positive identification. Bed in low position. Call rg5 light in reach. Side rails up X 1. Client placed on continuous cardiac and pulse oximetry monitoring. NIBP monitoring applied. yarn weight and strength tester on. Pulse ox on. Door closed. Noise minimized. Warm blanket given. 14:00 No provider procedures requiring assistance completed. Inserted saline lock: 22 gauge rg5 in right antecubital area, using aseptic technique. Blood collected. Flushed with 10 mL NS. Patient maintains SpO2 saturation greater than 95% on room air. 14:17 XRAY Chest (1 view) In Process Unspecified. EDMS 14:22 Liborio Hernandes, REZA is Primary Nurse. rg5 16:41 CT Aorta for Dissection In Process Unspecified. EDMS 17:09 Prince Muhammad MD is Hospitalizing Provider. [facility] 19:59 Provided Education on: post er care. rg5 19:59 Patient admitted, IV remains in place. intact, No redness/swelling at site. rg5 Administered Medications: 15:04 Drug: Famotidine IVP 20 mg IVP once; dilute with 10 mL 0.9% NaCl; give over 2 minutes rg5 Route: IVP; Site: right antecubital; 15:39 Follow up: Response: No adverse reaction rg5 15:04 Drug: NS 0.9% IV 500 ml 500 ml IV at 1 bolus once; to be given as a bolus over 30 rg5 minutes Volume: 500 ml; Route: IV; Rate: 1 bolus; Site: right antecubital; 15:35 Follow up: IV Intake: 500ml rg5 15:35 Follow up: IV Status: Completed infusion; IV Intake: 500ml rg5 15:35 Drug: NS 0.9% IV 500 ml 500 ml IV at 125 ml/hr once Volume: 500 ml; Route: IV; Rate: rg5 125 ml/hr; Site: right antecubital; 19:30 Follow up: IV Status: Completed infusion; IV Intake: 500ml rg5 17:01 Drug: Cefepime IVPB 1 grams IVPB at 200 ml/hr once over 30 mins; (mix in NS 100 mL) rg5 Route: IVPB; Rate: 200 ml/hr; Infused Over: 30 mins; Site: right antecubital; 17:35 Follow up: IV Status: Completed infusion; IV Intake: 100ml rg5 17:01 Drug: Aspirin PO Chewable Tablet 162 mg PO once Route: PO; rg5 18:35 Follow up: Response: No adverse reaction rg5 17:01 Drug: morphine IVP or IV 2 mg IVP once over 4 mins Route: IVP; Infused Over: 4 mins; rg5 Site: right antecubital; 18:35 Follow up: Response: No adverse reaction; Pain is decreased rg5 17:01 Drug: Ondansetron IVP 4 mg IVP once; over 2 minutes Route: IVP; Site: right antecubital;rg5 18:35 Follow up: Response: No adverse reaction rg5 17:34 Drug: morphine IVP or IV 2 mg IVP once over 4 mins Route: IVP; Infused Over: 4 mins; rg5 Site: right antecubital; 18:35 Follow up: Response: No adverse reaction; Pain is decreased rg5 17:51 Drug: GI Cocktail without - (Maalox PO 30 ml, Lidocaine Mucous Membrane 2 % 15 rg5 ml) PO once Route: PO; 18:35 Follow up: Response: No adverse reaction rg5 Medication: 14:00 VIS not applicable for this client. rg5 Intake: 15:35 IV: 500ml; Total: 500ml. rg5 15:35 IV: 500ml; Total: 1000ml. rg5 17:35 IV: 100ml; Total: 1100ml. rg5 19:30 IV: 500ml; Total: 1600ml. rg5 Outcome: 17:11 Decision to Hospitalize by Provider. yoandy 19:59 Admitted to Med/surg accompanied by tech, via wheelchair, rg5 19:59 Condition: stable rg5 19:59 Instructed on the need for admit, 20:35 Patient left the ED. rg5 Signatures: Dispatcher [employer] Juwan Pablo MD MD cha Eddleman, Michelle, RN RN me1 Liborio Hernandes RN RN rg5 Yessi Galarza6
[2025-04-01] MEDS ORDERED: LIDOCAINE VISCOUS 2% 10ML ORAL SOLN ONE (17:44)
[2025-04-01] MEDS ORDERED: MAGNES/ALUMIN/SIMET 30ML UCUP ONE (17:44)
[2025-04-01] MEDS ORDERED: NITROGLYCERIN 0.4 MG/TAB SL PRN (19:13)
[2025-04-01] MEDS ORDERED: SODIUM CHLORIDE 0.9% 10ML INJ IV PRN (19:19)
--- NOTE | 2025-04-01 19:24 | P.HP ---
Certification for Inpatient Patient admitted to: Inpatient With expected LOS: >2 Midnights Patient will require the following post-hospital care: None Practitioner: I am a practitioner with admitting privileges, knowledge of patient current condition, hospital course, and medical plan of care. Services: Services provided to patient in accordance with Admission requirements found in Title 42 Section 412.3 of the Code of Federal Regulations Patient History Date of Service: 04/01/25 Reason for admission: UTI, UTI, Generalized weakness, Back Pain History of Present Illness: Patient is a pleasant 70-year-old female with past medical history of GERD, essential hypertension, CHF, type 2 diabetes mellitus, COPD, CVA, DVT, fatty liver disease, hyperlipidemia, hypothyroidism, kidney stones, myocardial infarction, pancreatitis, TIA, brought to the ER today complaining of chest pain radiating to her back, generalized body weakness, increased pain to her right leg, and heart palpitation. Patient states her symptoms started 3 days ago, states her chest pain progressively worsening today which then prompted her to report to ER, describes her chest pain as tight, heavy and pressure, radiating to her back. States her tiredness has progressively worsening as well. Patient states she had similar symptoms 1-1/2 years ago, but states it was not as severe as the symptoms that she had today. Patient states about a year ago she was told that the flap at the end of her esophagus does not close completely. It is difficult to ascertain if patient presentation is of cardiac related chest pain, or GERD flareup. The patient states that after she received morphine IV in ER, her chest pain was more relieved. Course in ER. (1) chest x-ray. Impression: No acute intrathoracic abnormalities. (2) right lower extremity ultrasound venous Doppler. Impression: There is no deep vein or superficial vein thrombosis. (3) lower extremity arterial. Impression: No evidence of significant peripheral vascular disease. (4) CT dissection. Impression: (a) no evidence of thoracic or abdominal aortic aneurysm or dissection. (b) 7 mm nodule in the left upper lobe anteriorly. Recommend follow-up CT chest in 6 months for reassessment. Allergies metoclopramide HCl [From Reglan] Allergy (Intermediate, Verified 12/19/21 11:34) Nausea/Vomiting methylphenidate HCl [From Ritalin] Adverse Reaction (Mild, Verified 12/19/21 11:34) NERVOUS Penicillins Adverse Reaction (Mild, Verified 12/19/21 11:34) Rash Home Medications: Aspirin [Aspirin EC 81 MG] 81 mg PO DAILY 04/30/18 Clopidogrel Bisulfate [Plavix*] 75 mg PO DAILY 04/30/18 Furosemide [Lasix*] 40 mg PO DAILY 04/30/18 Levothyroxine [Synthroid*] 25 mcg PO [id number] 04/30/18 Venlafaxine HCl *Xr* [Effexor XR] 150 mg PO DAILY 04/30/18 atenoloL [Tenormin] 100 mg PO DAILY 04/30/18 Albuterol Sulfate [Ventolin Hfa] 18 gm IH BID 12/19/21 Hydrocodone 5/APAP 325 [[place] 5/325*] 1 tab PO DAILY 12/19/21 Linaclotide [Linzess] 145 mcg PO DAILY 12/19/21 Ondansetron [Zofran] 4 mg PO Q6H PRN 12/19/21 Scopolamine 1 patch TD EVERY 3RD DAY 12/19/21 Simvastatin 40 mg PO DAILY 12/19/21 Spironolactone [Aldactone] 25 mg PO DAILY 12/19/21 - Past Medical/Surgical History Diabetic: No -: HTN -: CHF -: COPD -: HYPERLIPIDEMIA -: [place] -: Chronic pancreatitis -: Depression with anxiety -: DVT R leg -: cerebellar ataxia -: DDD/DJD of the back, Osteoarthritis -: kidney stones -: CVA (2014) -: Stents placed 2007 -: Mass removed - Partial upper Left lobectomy -: Cholecystectomy -: Hysterectomy -: pancreatic stent -: Psychosocial/ Personal History: - Family History Sister -: Diabetes, Liver disease Mother -: Heart disease - Social History Smoking Status: Former smoker Alcohol use: No CD- Drugs: No Caffeine use: Yes Place of Residence: Home Review of Systems 10-point ROS is otherwise unremarkable General: Weakness Cardiovascular: Chest Pain Musculoskeletal: Back Pain Physical Examination - Physical Exam General: Alert, In no apparent distress, Oriented x3 HEENT: Atraumatic, Normocephalic, PERRLA Neck: Supple, 2+ carotid pulse no bruit, JVD not distended, No Thyromegaly, No LAD, Without JVD or thyroid abnormality Respiratory: Clear to auscultation bilaterally, Normal air movement Cardiovascular: No edema, Normal pulses, Regular rate/rhythm, Normal S1 S2, Abnormal S3, No gallops Capillary refill: <2 Seconds Gastrointestinal: Normal bowel sounds, Soft and benign, Non-distended, W/out hepatomegaly, No ascites Musculoskeletal: No clubbing, No swelling, No contractures, No erythema, No tenderness, No warmth Integumentary: No rashes, No breakdown, No significant lesion, No tenderness/swelling, No erythema, No warmth, No cyanosis Neurological: Normal gait, Normal speech, Normal strength at 5/5 x4 extr, Normal tone, Sensation intact, Cranial nerves 3-12 intact, Normal reflexes 2+, Normal affect Lymphatics: No axilla or inguinal lymphadenopathy - Studies Laboratory Data (last 24 hrs) 04/01/25 04/01/25 04/01/25 15:35 15:35 15:35 WBC 7.50 Hgb 13.0 Hct 39.1 Plt Count 162 PT 13.6 H INR 1.21 Sodium 141 Potassium 4.0 BUN 16 Creatinine 0.79 Glucose 63 L Magnesium 2.1 Total Bilirubin 1.1 H AST 17 ALT 18 Alkaline Phosphatase 116 Lipase 42 Female Exam - Breasts Breasts: Normal configuration, Normal contours, Symmetrical Assessment and Plan - Plan Patient is a 70-year-old female admitted with diagnosis of chest pain, UTI, generalized weakness, and right leg pain. (1)Chest pain. - Nitro 0.4 mg sublingual as needed every 5 minutes x 3. -Morphine 4 mg IV as needed every 4 hours. -Consult textile colorist dyer. -Serial troponin every 8 x 3. -EKG every 8 x 3. Order echocardiogram. -Telemetry. (2) UTI. -Ceftriaxone 2 g IV daily. (3)Acute on chronic GERD. -Order Protonix 40 mg IV x 1 stat, follow with Protonix 40 mg p.o. twice daily. (4)Chronic type 2 diabetes mellitus. -ACHS with moderate sliding scale coverage. (5) Pain right leg. Patient complaining of severe pain right leg. Assessed with no sign of cellulitis. -Order both arterial and venous ultrasound Doppler which are both negative. (6)Explained the entire treatment plan to the patient, solicited questions answered and voiced understanding. Discharge Plan: Home Plan to discharge in: Greater than 2 days - Advance Directives Does patient have a Living Will: No Does patient have a Durable POA for Healthcare: No - Code Status/Comfort Care Code Status Assessed: Yes Code Status: Full Code Critical Care: No Time Spent Managing Pts Care (In Minutes): 55
--- NOTE | 2025-04-01 20:36 | RAD REPORT ---
EXAMINATION: US RIGHT LOWER EXTREMITY VENOUS DOPPLER CLINICAL INDICATION: Severe pain, and Hx of DVT RIGHT TECHNIQUE: Complete bilateral duplex sonography of the RIGHT lower extremity veins was performed. The examination included compression for vein patency, color Doppler imaging and flow augmentation in response to distal compression of the distal external iliac, common femoral, femoral, popliteal, tibi al, and great and small saphenous veins. COMPARISON: No prior exam. FINDINGS: Duplex sonography testing of the veins of the RIGHT lower extremity was performed. Color flow imaging shows all veins to be compressible with [id number] color filling. Pulsatile and phasic flow is present within all lower extremity deep and superficial veins examined. IMPRESSION: There is no deep vein or superficial vein thrombosis.
--- NOTE | 2025-04-01 20:38 | RAD REPORT ---
EXAMINATION:Lower Extremity Artery [employer] CLINICAL INDICATION: Female, 70 years old. Severe pain RIGHT TECHNIQUE: Arterial duplex ultrasound was performed of the right lower extremity with real-time, colo r-flow, and spectral wave Doppler evaluation. Ankle brachial indices were not performed. COMPARISON: No prior exam. FINDINGS: Mild plaque throughout the evaluated arterial system. Triphasic waveforms are seen throughout the evaluated left lower extremity arterial system, to the le tim of the dorsalis pedis artery. No other suspicious findings. IMPRESSION: No evidence of significant peripheral vascular disease.
[2025-04-01] MEDS: INSULIN REGULAR (HUMAN) 100 UNIT/ML SQ SCH (21:00)
[2025-04-01] MEDS: PANTOPRAZOLE 40 MG INJ IVP ONE (22:01)
[2025-04-01] MEDS: MORPHINE 4 MG/ML SYR IV PRN (22:04)
[2025-04-02] MEDS: ONDANSETRON 4 MG/2 ML VIAL IV PRN (03:11)
[2025-04-02 06:32] LABS: Absolute Lymphocytes (CBC) 2.3 K/uL (0.7-4.9); Hematocrit 39.1 % (36.0-45.0); Hemoglobin 13.0 g/dL (12.0-15.0); MCH 30.1 pg (27.0-35.0); MCHC 33.3 g/dL (32.0-36.0); MCV 90.4 fL (80-100); MPV 8.7 fL (7.6-11.3); Nucleated RBC Absolute Count 0.0 (0-0); Nucleated Red Blood Cells % 0.1 % (0-0); RBC Red Blood Cell Count 4.32 M/uL (3.86-4.86); White Blood Count 6.00 thou/uL (4.3-10.9)
[2025-04-02 07:00] LABS: Anion Gap 9.1 mEq/L (5.0-15.0); BUN Blood Urea Nitrogen 14.0 mg/dL (7-18); Glucose Level 80.0 mg/dL (74-106); Potassium 4.1 mEq/L (3.5-5.1)
[2025-04-02] MEDS ORDERED: PANTOPRAZOLE 40MG TABLET PO SCH (07:30)
[2025-04-02] MEDS: FLU (Fluarix) 25-26 (6MOS UP)/PF 45 MCG/0.5 ML Syringe IM ONE (07:30)
[2025-04-02] MEDS: PANTOPRAZOLE 40 MG INJ IV SCH (08:30)
[2025-04-02] MEDS: SODIUM CHLORIDE 0.9% 10ML INJ IV SCH (08:30)
[2025-04-02] MEDS: CEFTRIAXONE 2,000 MG in NA CHLORIDE 0.9% 100 ML IV SCH (08:32)
[2025-04-02] MEDS: ENOXAPARIN 40 MG/0.4 ML SQ SCH (08:32)
--- NOTE | 2025-04-02 10:58 | P.CNS ---
Date of Consult: 04/02/25 Reason for Consult: Chest pain Requesting Physician: Daniel Rodriguez Chief Complaint: UTI, UTI, Generalized weakness, Back Pain History of Present Illness: 70-year-old female with PMH GERD, COPD, HTN, HLD, DM2, remote CVA with residual left-sided weakness, remote DVT (15 years ago), fatty liver disease, hypothyroidism, CAD and PCI x 1 (2007 per patient), who presents with chest pain and right lower extremity pain. Patient reports episode of substernal chest discomfort with radiation to the back for the past 3 days. Similar symptoms previously, but now occurring more frequent. Symptoms are not related to activity. However, patient reports more palpitations when she is walking or cleaning, which occur up to 7 times per day. Previously having a cardiac event monitor with her vacuum bottle assembler, which was reportedly negative. A stress test more than a year ago was also negative per the patient. ECG unremarkable. Chest x-ray negative. Lower extremity venous duplex negative for DVT. CT chest negative for dissection. Lower extremity arterial duplex negative for PAD. Urinalysis positive, suggestive for UTI. Platelets 143K. Creatinine 0.66. High-sensitivity cardiac troponin normal. NT proBNP 118. Patient follow with a vacuum bottle assembler in [place], [place] (Dr Dr. Daria Cruz). Allergies metoclopramide HCl [From Reglan] Allergy (Intermediate, Verified 12/19/21 11:34) Nausea/Vomiting methylphenidate HCl [From Ritalin] Adverse Reaction (Mild, Verified 12/19/21 11:34) NERVOUS Penicillins Adverse Reaction (Mild, Verified 12/19/21 11:34) Rash Home medications list reviewed: Yes Home Medications: Aspirin [Aspirin EC 81 MG] 81 mg PO DAILY 04/30/18 Clopidogrel Bisulfate [Plavix*] 75 mg PO DAILY 04/30/18 Furosemide [Lasix*] 40 mg PO DAILY 04/30/18 Levothyroxine [Synthroid*] 25 mcg PO [id number] 04/30/18 Venlafaxine HCl *Xr* [Effexor XR] 150 mg PO DAILY 04/30/18 atenoloL [Tenormin] 100 mg PO DAILY 04/30/18 Albuterol Sulfate [Ventolin Hfa] 18 gm IH BID 12/19/21 Hydrocodone 5/APAP 325 [[place] 5/325*] 1 tab PO DAILY 12/19/21 Linaclotide [Linzess] 145 mcg PO DAILY 12/19/21 Ondansetron [Zofran] 4 mg PO Q6H PRN 12/19/21 Scopolamine 1 patch TD EVERY 3RD DAY 12/19/21 Simvastatin 40 mg PO DAILY 12/19/21 Spironolactone [Aldactone] 25 mg PO DAILY 12/19/21 - Past Medical/Surgical History Diabetic: No -: HTN -: CHF -: COPD -: HYPERLIPIDEMIA -: [place] -: Chronic pancreatitis -: Depression with anxiety -: DVT R leg -: cerebellar ataxia -: DDD/DJD of the back, Osteoarthritis -: kidney stones -: CVA (2014) -: Stents placed 2007 -: Mass removed - Partial upper Left lobectomy -: Cholecystectomy -: Hysterectomy -: pancreatic stent -: Psychosocial/ Personal History: - Family History Sister Medical History: Diabetes, Liver disease Mother Medical History: Heart disease - Social History Smoking Status: Former smoker Alcohol use: No CD- Drugs: No Caffeine use: Yes Place of Residence: Home Physical Examination Temp Pulse Resp BP Pulse Ox 97.8 F 68 12 126/72 97 04/02/25 08:00 04/02/25 08:00 04/02/25 08:00 04/02/25 08:00 04/02/25 08:00 General: Alert, In no apparent distress, Oriented x3, Other (Anxious) HEENT: Atraumatic, Normocephalic, EOMI Neck: JVD not distended Respiratory: Clear to auscultation bilaterally Cardiovascular: No edema, Normal S1 S2, No murmurs Capillary refill: <2 Seconds Gastrointestinal: Normal bowel sounds Musculoskeletal: No clubbing, No swelling Integumentary: No rashes Neurological: Normal speech Laboratory Data (last 24 hrs) 04/01/25 04/01/25 04/01/25 15:35 15:35 15:35 WBC 7.50 Hgb 13.0 Hct 39.1 Plt Count 162 PT 13.6 H INR 1.21 Sodium 141 Potassium 4.0 BUN 16 Creatinine 0.79 Glucose 63 L Magnesium 2.1 Total Bilirubin 1.1 H AST 17 ALT 18 Alkaline Phosphatase 116 Lipase 42 Imagings Data: Reviewed - Problems (1) Atherosclerotic heart disease of [place] coronary artery with unspecified angina pectoris Current Visit: Yes Status: Acute Plan: Unclear etiology. Troponin is negative. However, given the patient's risk factors, further ischemic evaluation is recommended. Patient reports remote history of coronary stent in [id number], but unclear on the details. Start aspirin and statin. Patient presents with chest pain concerning for possible angina. Differential includes obstructive coronary artery disease, microvascular angina, and non- cardiac causes. Given intermediate risk, a nuclear myocardial perfusion stress test is indicated to assess for ischemia, quantify perfusion defects, and evaluate ventricular function. Results will guide management, including medical therapy optimization, possible coronary angiography if high-risk findings, and reinforcement of risk factor modification. Patient understands and agrees. Qualifiers: [place] vs. transplanted heart: [place] heart Qualified Code(s): I25.119 - Atherosclerotic heart disease of [place] coronary artery with unspecified angina pectoris (2) History of DVT (deep vein thrombosis) Current Visit: Yes Status: Acute Plan: Patient reports remote history of right lower extremity DVT, and feels that her right leg discomfort may be related to that. Lower extremity venous and arterial duplex both negative. Symptoms could possibly be related to orthopedic issues or chronic postthrombotic syndrome. Recommend bilateral lower extremity compression stockings. (3) GERD (gastroesophageal reflux disease) Current Visit: Yes Status: Acute Plan: Chronic. Unclear contribution to patient's present symptoms. Agree with PPI and further evaluation. (4) COPD (chronic obstructive pulmonary disease) Onset Date: 05/22/15 Current Visit: No Status: Acute Plan: Chronic. Stable. Not requiring supplemental O2 at this time. No wheezing exam. (5) Dyslipidemia Onset Date: 05/22/15 Current Visit: No Status: Acute Plan: Obtain lipid profile and start at least moderate intensity statin. Reinforce lifestyle changes; monitor lipids. Goal LDL-C <70 mg/dL. (6) Hypertension Onset Date: 05/22/15 Current Visit: No Status: Acute Plan: Blood pressure is poorly controlled. Continue home antihypertensive medications, adjust as needed based on blood pressure and tolerance. Emphasized lifestyle modifications including diet, salt restriction < 2 g, exercise, weight management, and cessation of smoking/alcohol (if applicable). Blood pressure goal <130/80 mmHg. Conclusions/Impression: Thank you for the consultation. Please call with any questions.
--- NOTE | 2025-04-02 12:53 | P.PN ---
Subjective Date of Service: 04/02/25 Chief Complaint: UTI, UTI, Generalized weakness, Back Pain Subjective: No new changes, C/O voiced (Nausea/Vomiting overnight) Patient was examined while sitting in bed prior to breakfast. Patient reports having nausea and vomiting overnight. Reports that she has history of GERD and thinks that she has a hernia, but was not 100% sure of this diagnosis. Reports that the chest pressure that she was having was located in the epigastric region and slowly progresses until it reaches her shoulder blade. Patient reports that she takes Linzess every day for her chronic constipation. Patient also complaints of having white tongue and previous history of oral thrush Review of Systems 10-point ROS is otherwise unremarkable ENT: Other ("white tongue" ) Cardiovascular: Other (occasional chest pressure ) Gastrointestinal: Nausea, Vomiting, Constipation, Other (epigastric pain ) Physical Examination - Vital Signs Temperature: 97.8 F Blood Pressure: 126/72 Pulse: 68 Respirations: 12 Pulse Ox (%): 97 - Physical Exam General: Alert, In no apparent distress HEENT: Atraumatic, PERRLA, EOMI Neck: Supple, JVD not distended Respiratory: Normal air movement, Diminished Cardiovascular: No edema Capillary refill: <2 Seconds Gastrointestinal: Hypoactive, Non-distended, No ascites, No tenderness Musculoskeletal: No tenderness Integumentary: No rashes Neurological: Normal speech, Normal tone, Normal affect External genitalia: Deferred Rectal: Deferred - Studies Laboratory Data (last 24 hrs) 04/01/25 04/01/25 04/01/25 15:35 15:35 15:35 WBC 7.50 Hgb 13.0 Hct 39.1 Plt Count 162 PT 13.6 H INR 1.21 Sodium 141 Potassium 4.0 BUN 16 Creatinine 0.79 Glucose 63 L Magnesium 2.1 Total Bilirubin 1.1 H AST 17 ALT 18 Alkaline Phosphatase 116 Lipase 42 Medications List Reviewed: Yes Assessment And Plan - Plan Patient is a pleasant 70-year-old female with past medical history of GERD, essential hypertension, CHF, type 2 diabetes mellitus, COPD, CVA, DVT, fatty liver disease, hyperlipidemia, hypothyroidism, kidney stones, myocardial infarction, pancreatitis, TIA, brought to the ER today complaining of chest pain radiating to her back, generalized body weakness, increased pain to her right leg, and heart palpitation x3days Chest/Epigastric pain - Nitro 0.4 mg sublingual as needed every 5 minutes x 3. - Morphine 4 mg IV as needed every 4 hours. - Consulted mechanical engineering director and discussed plan of care for stress test on Friday. NPO at mid on Friday - Troponin trended, 3.1>4.4> 3.5 - EKG with no changes - Order echocardiogram, pending completion and needs f/u - Continue telemetry Urinary tract infection - Urine culture results and needs f/u - WBC normal continue to trend - Continue Ceftriaxone 2 g IV daily Acute on chronic GERD -Continue Protonix 40 mg IV and transition to PO once tolerating PO intake Type 2 diabetes mellitus - Blood glucose monitoring ACHS - Moderate sliding scale coverage - A1C ordered, needs follow up Right Lower Extremity Pain DVT R/o - No s/s of cellulitis - Arterial and venous ultrasound Doppler; negative - Bilateral lower extremity compression stockings COPD, chronic-stable - Not requiring supplemental O2 at this time. No wheezing exam. - Continue home med/inhaler Congestive Heart Failure Hx of HTN - Currently euvolemic - Monitor intake/output q4hs - Fluid restriction 1500 mL - Hold home Lasix for now - Continue with home spironolactone/Atenolol Dyslipidemia - Reinforced lifestyle changes - Monitor lipids. Goal LDL-C <70 mg/dL - Continue home Statin Hypothyroidism - Not an active issue at this time. - Continue home levothyroxine daily Chronic Constipation Nausea/Vomiting - Continue with home med Linzess - CT abd/pelvis showed moderate stool is retained throughout the colon - Miralax PRN while inpatient and tolerating PO - IV Zofran PRN - Suppository daily for now DVT Ppx: Hold home ASA/Plavix for cardiology intervention Friday-Lovenox for now GI PPx: IV Protonix Code Status: Full Code Discharge Plan: Home Plan to discharge in: Greater than 2 days - Code Status/Comfort Care Code Status Assessed: Yes (Full Code) Critical Care: No
[2025-04-02] MEDS: GLYCERIN ADULT SUPP PR SCH (13:00)
[2025-04-02] MEDS ORDERED: ALBUTEROL INHALER 200 PUFF/6.7 GM IH PRN (13:06)
[2025-04-02] MEDS: ALBUTEROL 2.5 MG/3 ML NEB SOL NEB SCH (20:02)
[2025-04-02] MEDS: NYSTATIN 500,000 UNIT/5 ML UDC PO SCH (20:08)
[2025-04-02] MEDS: ACETAMINOPHEN 325 MG TABLET PO PRN (20:08)
[2025-04-02] MEDS: ATORVASTATIN 20 MG TAB PO SCH (20:08)
[2025-04-02] MEDS ORDERED: ALBUTEROL INHALER 200 PUFF/6.7 GM IH SCH (21:00)
[2025-04-02 21:19] VITALS: BMI 28.8
[2025-04-02] MEDS: HYDROCODONE/APAP 5/325 MG TAB PO PRN (22:10)
[2025-04-03] MEDS: LEVOTHYROXINE SOD 0.05 MG TABLET PO SCH (06:16)
[2025-04-03 07:10] LABS: Absolute Lymphocytes (CBC) 2.4 K/uL (0.7-4.9); Hematocrit 38.4 % (36.0-45.0); Hemoglobin 12.9 g/dL (12.0-15.0); MCH 30.2 pg (27.0-35.0); MCHC 33.6 g/dL (32.0-36.0); MCV 89.7 fL (80-100); MPV 8.6 fL (7.6-11.3); Nucleated RBC Absolute Count 0.0 (0-0); Nucleated Red Blood Cells % 0.1 % (0-0); RBC Red Blood Cell Count 4.28 M/uL (3.86-4.86); White Blood Count 5.00 thou/uL (4.3-10.9)
[2025-04-03 07:32] LABS: Anion Gap 6.8 mEq/L (5.0-15.0); BUN Blood Urea Nitrogen 17.0 mg/dL (7-18); Glucose Level 84.0 mg/dL (74-106); HDL Cholesterol 54.0 mg/dL (40-60); LDL Cholesterol, Calculated 70.0 mg/dL (<130); LDL Cholesterol,Calc NonReport 70.0; Potassium 3.8 mEq/L (3.5-5.1)
[2025-04-03] MEDS: VENLAFAXINE HCL XR 75 MG CAP PO SCH (08:45)
[2025-04-03] MEDS: POLYETHYL GLY 3350 17 GM/DOSE PO PRN (08:45)
[2025-04-03] MEDS: SPIRONOLACTONE 25 MG TABLET PO SCH (08:45)
[2025-04-03] MEDS: LINACLOTIDE 145 MCG PO SCH (09:00)
[2025-04-03] MEDS ORDERED: HOME MED 1 EA UNK (Simvastatin [Simvastatin] 40 MG Tablet) PO SCH (09:00)
[2025-04-03] MEDS ORDERED: HOME MED 1 EA UNK (Atenolol [Tenormin] 100 MG Tablet) PO SCH (09:00)
--- NOTE | 2025-04-03 11:05 | P.PN ---
Subjective Date of Service: 04/03/25 Chief Complaint: UTI, UTI, Generalized weakness, Back Pain Subjective: No new changes, Improving Patient was examined while sitting in bed prior to breakfast. Patient reports improved nausea/vomiting. Reports continued lower abdominal pain. Discussed CT image results with moderate stool and to the need for stool softeners and suppository at this time patient updated about stress test that is scheduled for tomorrow and that she will need to be n.p.o. after midnight. Bedside RN made aware of this plan and to hold Lovenox dosing for tomorrow. Review of Systems 10-point ROS is otherwise unremarkable Gastrointestinal: Abdominal Pain, Constipation Physical Examination - Vital Signs Temperature: 98.1 F Blood Pressure: 142/75 Pulse: 73 Respirations: 18 Pulse Ox (%): 97 - Physical Exam General: Alert, In no apparent distress HEENT: Atraumatic, PERRLA, EOMI Neck: Supple, JVD not distended Respiratory: Diminished Cardiovascular: Regular rate/rhythm, Normal S1 S2 Capillary refill: <2 Seconds Gastrointestinal: Hypoactive, Non-distended, No ascites, Tenderness Musculoskeletal: No tenderness Integumentary: No rashes Neurological: Normal speech, Normal tone, Normal affect External genitalia: Deferred Rectal: Deferred - Studies Medications List Reviewed: Yes Assessment And Plan - Plan Patient is a pleasant 70-year-old female with past medical history of GERD, essential hypertension, CHF, type 2 diabetes mellitus, COPD, CVA, DVT, fatty liver disease, hyperlipidemia, hypothyroidism, kidney stones, myocardial infarction, pancreatitis, TIA, brought to the ER today complaining of chest pain radiating to her back, generalized body weakness, increased pain to her right leg, and heart palpitation x3days Chest/Epigastric pain - Consulted aerospace manager and discussed plan of care for stress test on Friday. - 04/03: NPO at mid and Lovenox suspended for AM - Troponin trended, 3.1>4.4> 3.5 - EKG with no changes - Order echocardiogram, pending report - Continue telemetry Urinary tract infection - Urine culture results and needs f/u - WBC normal continue to trend - Continue Ceftriaxone 2 g IV daily Acute on chronic GERD -Continue Protonix 40 mg Type 2 diabetes mellitus - Blood glucose monitoring ACHS - Moderate sliding scale coverage - A1C ordered, needs follow up Right Lower Extremity Pain DVT R/o - No s/s of cellulitis - Arterial and venous ultrasound Doppler; negative - Bilateral lower extremity compression stockings - Acetaminophen as needed COPD, chronic-stable - Not requiring supplemental O2 at this time. No wheezing exam. - Continue home med/inhaler Congestive Heart Failure Hx of HTN - Currently euvolemic - Monitor intake/output q4hs - Fluid restriction 1500 mL - Hold home Lasix for now - Continue with home spironolactone/Atenolol Dyslipidemia - Reinforced lifestyle changes - Monitor lipids. Goal LDL-C <70 mg/dL - Continue home Statin Hypothyroidism - Not an active issue at this time. - Continue home levothyroxine daily Acute on Chronic Constipation Nausea/Vomiting, resolved - Continue with home med Linzess, patients daughter to bring home med - CT abd/pelvis showed moderate stool is retained throughout the colon - Miralax scheduled and suppository daily for now - IV Zofran PRN - Encourage frequent ambulation Oral Candidiasis - Nystatin 3 times daily ordered DVT Ppx: Hold home ASA/Plavix for cardiology intervention Friday-Lovenox for now GI PPx: Protonix Code Status: Full Code Discharge Plan: Home Plan to discharge in: 48 Hours - Code Status/Comfort Care Code Status Assessed: Yes (Full Code) Critical Care: No
--- NOTE | 2025-04-03 11:52 | P.PN ---
Subjective Date of Service: 04/03/25 Chief Complaint: UTI, UTI, Generalized weakness, Back Pain No acute events overnight. Chest pain free. Ambulatory. Physical Examination - Vital Signs Temperature: 98.1 F Blood Pressure: 142/75 Pulse: 73 Respirations: 18 Pulse Ox (%): 97 - Physical Exam General: Alert, In no apparent distress, Oriented x3 HEENT: Atraumatic, Normocephalic, EOMI Neck: JVD not distended Cardiovascular: No edema, Normal S1 S2, No murmurs Capillary refill: <2 Seconds Gastrointestinal: Normal bowel sounds Musculoskeletal: No clubbing, No swelling Integumentary: No rashes Neurological: Normal gait, Normal speech - Studies Reviewed Imagings Data: Reviewed Medications List Reviewed: Yes Assessment And Plan - Current Problems (Diagnosis) (1) Atherosclerotic heart disease of [place] coronary artery with unspecified angina pectoris Current Visit: Yes Status: Acute Plan: Unclear etiology. Troponin is negative. However, given the patient's risk factors, further ischemic evaluation is recommended. Patient reports remote history of coronary stent in [id number], but unclear on the details. Continue aspirin and statin. Patient presents with chest pain concerning for possible angina. Differential includes obstructive coronary artery disease, microvascular angina, and non- cardiac causes. Given intermediate risk, a nuclear myocardial perfusion stress test is indicated to assess for ischemia, quantify perfusion defects, and evaluate ventricular function. Results will guide management, including medical therapy optimization, possible coronary angiography if high-risk findings, and reinforcement of risk factor modification. Patient understands and agrees. Qualifiers: [place] vs. transplanted heart: [place] heart Qualified Code(s): I25.119 - Atherosclerotic heart disease of [place] coronary artery with unspecified angina pectoris (2) History of DVT (deep vein thrombosis) Current Visit: Yes Status: Acute Plan: Patient reports remote history of right lower extremity DVT, and feels that her right leg discomfort may be related to that. Lower extremity venous and arterial duplex both negative. Symptoms could possibly be related to orthopedic issues or chronic postthrombotic syndrome. Recommend bilateral lower extremity compression stockings. (3) GERD (gastroesophageal reflux disease) Current Visit: Yes Status: Acute Plan: Chronic. Unclear contribution to patient's present symptoms. Agree with PPI and further evaluation. (4) COPD (chronic obstructive pulmonary disease) Onset Date: 05/22/15 Current Visit: No Status: Acute Plan: Chronic. Stable. Not requiring supplemental O2 at this time. No wheezing exam. (5) Dyslipidemia Onset Date: 05/22/15 Current Visit: No Status: Acute Plan: Obtain lipid profile and start at least moderate intensity statin. Reinforce lifestyle changes; monitor lipids. Goal LDL-C <70 mg/dL. (6) Hypertension Onset Date: 05/22/15 Current Visit: No Status: Acute Plan: Blood pressure is poorly controlled. Continue home antihypertensive medications, adjust as needed based on blood pressure and tolerance. Emphasized lifestyle modifications including diet, salt restriction < 2 g, exercise, weight management, and cessation of smoking/alcohol (if applicable). Blood pressure goal <130/80 mmHg.
[2025-04-03] MEDS: ASPIRIN EC 81 MG TAB PO SCH (13:00)
[2025-04-03] MEDS ORDERED: PNEUMOCOCCAL VACCINE 0.5 ML IMVAC ONE (16:00)
[2025-04-03] MEDS: MINERAL OIL ENEMA 135 ML BTL PR SCH (23:00)
[2025-04-04 08:22] LABS: Absolute Lymphocytes (CBC) 2.4 K/uL (0.7-4.9); Hematocrit 38.2 % (36.0-45.0); Hemoglobin 12.7 g/dL (12.0-15.0); MCH 30.1 pg (27.0-35.0); MCHC 33.2 g/dL (32.0-36.0); MCV 90.6 fL (80-100); MPV 8.8 fL (7.6-11.3); Nucleated RBC Absolute Count 0.0 (0-0); Nucleated Red Blood Cells % 0.1 % (0-0); RBC Red Blood Cell Count 4.22 M/uL (3.86-4.86); White Blood Count 5.30 thou/uL (4.3-10.9)
[2025-04-04] MEDS: PANTOPRAZOLE 40MG TABLET PO SCH (08:23)
[2025-04-04] MEDS: DOCUSATE NA 100 MG CAP PO SCH (08:24)
[2025-04-04 08:27] LABS: Anion Gap 8.0 mEq/L (5.0-15.0); BUN Blood Urea Nitrogen 14.0 mg/dL (7-18); Glucose Level 77.0 mg/dL (74-106); Potassium 4.0 mEq/L (3.5-5.1)
--- NOTE | 2025-04-04 08:47 | P.PN ---
Subjective Date of Service: 04/04/25 Chief Complaint: UTI, UTI, Generalized weakness, Back Pain No acute events overnight. Chest pain free. Pending stress test today. Physical Examination - Vital Signs Temperature: 97.9 F Blood Pressure: 118/61 Pulse: 80 Respirations: 18 Pulse Ox (%): 98 - Physical Exam General: Alert, Oriented x3, Other (Anxious) HEENT: Atraumatic, Normocephalic, EOMI Neck: JVD not distended Respiratory: Clear to auscultation bilaterally Cardiovascular: Normal pulses, Normal S1 S2, No murmurs Capillary refill: <2 Seconds Gastrointestinal: Normal bowel sounds Musculoskeletal: No clubbing, No swelling Integumentary: No rashes Neurological: Normal speech - Studies Reviewed Microbiology Data (last 24 hrs): 04/01/25 15:21 Clean Catch Urine [place] Count - Final BETWEEN 10,000 & 100,000 CFU/ML Imagings Data: Reviewed Medications List Reviewed: Yes Assessment And Plan - Current Problems (Diagnosis) (1) Atherosclerotic heart disease of [place] coronary artery with unspecified angina pectoris Current Visit: Yes Status: Acute Plan: Unclear etiology. Troponin is negative. However, given the patient's risk factors, further ischemic evaluation is recommended. Patient reports remote history of coronary stent in [id number], but unclear on the details. Continue aspirin and statin. Patient presents with chest pain concerning for possible angina. Differential includes obstructive coronary artery disease, microvascular angina, and non- cardiac causes. Given intermediate risk, a nuclear myocardial perfusion stress test is indicated to assess for ischemia, quantify perfusion defects, and evaluate ventricular function. Results will guide management, including medical therapy optimization, possible coronary angiography if high-risk findings, and reinforcement of risk factor modification. Patient understands and agrees. If stress test is negative, patient may be discharged from cardiovascular standpoint and follow-up with her general manager food. Qualifiers: [place] vs. transplanted heart: [place] heart Qualified Code(s): I25.119 - Atherosclerotic heart disease of [place] coronary artery with unspecified angina pectoris (2) History of DVT (deep vein thrombosis) Current Visit: Yes Status: Acute Plan: Patient reports remote history of right lower extremity DVT, and feels that her right leg discomfort may be related to that. Lower extremity venous and arterial duplex both negative. Symptoms could possibly be related to orthopedic issues or chronic postthrombotic syndrome. Recommend bilateral lower extremity compression stockings. (3) GERD (gastroesophageal reflux disease) Current Visit: Yes Status: Acute Plan: Chronic. Unclear contribution to patient's present symptoms. Agree with PPI and further evaluation. (4) COPD (chronic obstructive pulmonary disease) Onset Date: 05/22/15 Current Visit: No Status: Acute Plan: Chronic. Not requiring supplemental O2 at this time. No wheezing exam. (5) Dyslipidemia Onset Date: 05/22/15 Current Visit: No Status: Acute Plan: Obtain lipid profile and start at least moderate intensity statin. Reinforce lifestyle changes; monitor lipids. Goal LDL-C <70 mg/dL. (6) Hypertension Onset Date: 05/22/15 Current Visit: No Status: Acute Plan: Blood pressure is now better controlled. Continue home antihypertensive medications, adjust as needed based on blood pressure and tolerance. Emphasized lifestyle modifications including diet, salt restriction < 2 g, exercise, weight management, and cessation of smoking/alcohol (if applicable). Blood pressure goal <130/80 mmHg. - Plan Thank you for the consultation. Please call with any questions.
[2025-04-04] MEDS: LACTULOSE 20 GM/30 ML UCUP PO ONE (11:27)
--- NOTE | 2025-04-04 12:32 | P.PN ---
Subjective Date of Service: 04/04/25 Chief Complaint: UTI, UTI, Generalized weakness, Back Pain Patient was examined while sitting in bed prior to breakfast. Patient reports continued constipation however she is passing gas. Discussed trialing one-time dose of lactulose today. Discussed with bedside RN that patient is to be n.p.o. after midnight for stress test tomorrow, as it has been rescheduled. If stress test is negative, patient may discharge home tomorrow. Review of Systems 10-point ROS is otherwise unremarkable Physical Examination - Vital Signs Temperature: 97.9 F Blood Pressure: 118/61 Pulse: 80 Respirations: 18 Pulse Ox (%): 98 - Physical Exam General: Alert, In no apparent distress HEENT: Atraumatic, PERRLA, EOMI Neck: Supple Respiratory: Clear to auscultation bilaterally, Normal air movement Cardiovascular: Regular rate/rhythm, Normal S1 S2 Gastrointestinal: Normal bowel sounds, No tenderness Musculoskeletal: No tenderness Integumentary: No rashes Neurological: Normal speech, Normal tone, Normal affect Lymphatics: No axilla or inguinal lymphadenopathy - Studies Microbiology Data (last 24 hrs): 04/01/25 15:21 Clean Catch Urine [place] Count - Final BETWEEN 10,000 & 100,000 CFU/ML 04/01/25 15:21 Clean Catch Urine - Final Proteus Mirabilis Medications List Reviewed: Yes Assessment And Plan - Plan Patient is a pleasant 70-year-old female with past medical history of GERD, essential hypertension, CHF, type 2 diabetes mellitus, COPD, CVA, DVT, fatty liver disease, hyperlipidemia, hypothyroidism, kidney stones, myocardial infarction, pancreatitis, TIA, brought to the ER today complaining of chest pain radiating to her back, generalized body weakness, increased pain to her right leg, and heart palpitation x3days Chest/Epigastric pain - Consulted pourer and discussed plan of care for stress test on Friday - 04/04: NPO after midnight and Lovenox suspended for AM - Troponin trended, 3.1>4.4> 3.5 - EKG with no changes - Order echocardiogram, pending report - Continue telemetry Urinary tract infection - Urine culture +Proteus Mirabilis - WBC normal - Continue Ceftriaxone 2 g IV daily and transition to PO Augmentin at discharge Acute on chronic GERD -Continue Protonix 40 mg Type 2 diabetes mellitus - Blood glucose monitoring ACHS - Moderate sliding scale coverage - 04/03; A1C 4.9% Right Lower Extremity Pain DVT R/o - No s/s of cellulitis - Arterial and venous ultrasound Doppler; negative - Bilateral lower extremity compression stockings - Acetaminophen as needed COPD, chronic-stable - Not requiring supplemental O2 at this time. No wheezing exam. - Continue home med/inhaler Congestive Heart Failure Hx of HTN - Currently euvolemic - Monitor intake/output q4hs - Fluid restriction 1500 mL - Hold home Lasix for now - Continue with home spironolactone/Atenolol Dyslipidemia - Reinforced lifestyle changes - Monitor lipids. Goal LDL-C <70 mg/dL - Continue home Statin Hypothyroidism - Not an active issue at this time. - Continue home levothyroxine daily Acute on Chronic Constipation Nausea/Vomiting, resolved - Continue with home med Linzess, patients daughter to bring home med - CT abd/pelvis showed moderate stool is retained throughout the colon - Miralax scheduled and suppository daily for now - IV Zofran PRN - One time lactulose 20G ordered - Encourage frequent ambulation Oral Candidiasis, improving - Nystatin 3 times daily ordered DVT Ppx: Hold home ASA/Plavix for cardiology intervention Friday-Lovenox for now GI PPx: Protonix Code Status: Full Code Discharge Plan: Home Plan to discharge in: 24 Hours - Code Status/Comfort Care Code Status Assessed: Yes (Full Code) Critical Care: No Time Spent Managing PTS Care (In Minutes): 34
[2025-04-04] MEDS: MINERAL OIL ENEMA 135 ML BTL PR PRN (23:32)
[2025-04-05] MEDS ORDERED: REGADENOSON 0.4 MG/5 ML SYR IV ONE (09:09)
[2025-04-05 09:33] VITALS: O2SAT 97
--- NOTE | 2025-04-05 10:03 | RAD REPORT ---
EXAM: Nuclear medicine cardiac perfusion examination with ejection fraction HISTORY: Chest pain Chest Pain TECHNIQUE: Rest images: 10.8 mCi technetium 99m sestamibi Stress images: 27.9 mCi of technetium 99m sestamibi COMPARISON: 05/16/2014 FINDINGS: Tomographic images: No fixed or reversible perfusion defects. No finding to suspect hibernating myocardium. Ejection fraction of 75%. EDV: 35 mL ESV: 9 mL LHR: 0.31 TID: 0.90 IMPRESSION: No evidence of stress induced ischemia.
[2025-04-05 12:23] VITALS: BP 141/78; TEMP 97.9
--- NOTE | 2025-04-05 13:37 | P.DS ---
Admission Date: 04/01/25 Discharge Date: 04/05/25 Discharge Condition: GOOD Reason for Admission: UTI, UTI, Generalized weakness, Back Pain Brief History of Present Illness: Patient is a pleasant 70-year-old female with past medical history of GERD, essential hypertension, CHF, type 2 diabetes mellitus, COPD, CVA, DVT, fatty liver disease, hyperlipidemia, hypothyroidism, kidney stones, myocardial infarction, pancreatitis, TIA, brought to the ER today complaining of chest pain radiating to her back, generalized body weakness, increased pain to her right leg, and heart palpitation. Patient stated her symptoms started 3 days ago, stated her chest pain progressively worsening today which then prompted her to report to ER, describes her chest pain as tight, heavy and pressure, radiating to her back. States her tiredness has progressively worsening as well. Patient stated she had similar symptoms 1-1/2 years ago, but stated it was not as severe as the symptoms that she had day of discharge. Patient stated about a year ago she was told that the flap at the end of her esophagus does not close completely. It was difficult to be certain if patient presentation was related to cardiac/chest pain, or GERD flareup. The patient stated that after she received morphine IV in ER, her chest pain was more relieved. Course in ER. (1) chest x-ray. Impression: No acute intrathoracic abnormalities. (2) right lower extremity ultrasound venous Doppler. Impression: There is no deep vein or superficial vein thrombosis. (3) lower extremity arterial. Impression: No evidence of significant peripheral vascular disease. (4) CT dissection. Impression: (a) no evidence of thoracic or abdominal aortic aneurysm or dissection. (b) 7 mm nodule in the left upper lobe anteriorly. Recommend follow-up CT chest in 6 months for reassessment. Patient was found to have UTI and completed stress test with cardiology. Hospital Course: Chest/Epigastric pain - Consulted hide spreader, stress test completed and patient to follow-up with cardiology outpatient - Troponin trended, 3.1>4.4> 3.5 - EKG with no changes - Stress test completed; no evidence of stress-induced ischemia Urinary tract infection - Urine culture +Proteus Mirabilis - WBC normal - Completed 5 days of IV Ceftriaxone 2 g IV daily - Follow-up with PCP Acute on chronic GERD -Continue Protonix 40 mg Type 2 diabetes mellitus - Blood glucose monitoring ACHS - Moderate sliding scale coverage - 04/03; A1C 4.9% Right Lower Extremity Pain DVT R/o - No s/s of cellulitis - Arterial and venous ultrasound Doppler; negative - Bilateral lower extremity compression stockings - Acetaminophen as needed OTC COPD, chronic-stable - Continue home med/inhaler Congestive Heart Failure Hx of HTN - euvolemic while inpatient - Continue cardiac diet and fluid restriction at home per outpatient cardiology recommendations - Continue home Lasix, however recomend outpatient follow up and monitoring BP closely at home after restart - Continue with home spironolactone/Atenolol Dyslipidemia - Reinforced lifestyle changes - Continue home Statin Hypothyroidism - Not an active issue while hospitalized - Continue home levothyroxine daily Acute on Chronic Constipation, resolved Nausea/Vomiting, resolved - Continue with home med Linzess - CT abd/pelvis showed moderate stool is retained throughout the colon - Miralax PRN at home - Frequent ambulation - Follow-up with gastroenterology highly recommended Oral Candidiasis, resolved - Nystatin while inpatient and all s/s resolved prior to dc Vital Signs/Physical Exam: Temp Pulse Resp BP Pulse Ox 97.9 F 80 18 141/78 H 99 04/05/25 12:00 04/05/25 12:00 04/05/25 12:00 04/05/25 12:00 04/05/25 12:00 General: Alert, In no apparent distress HEENT: Atraumatic, PERRLA, EOMI Neck: Supple, JVD not distended Respiratory: Clear to auscultation bilaterally, Normal air movement Cardiovascular: Regular rate/rhythm, Normal S1 S2 Gastrointestinal: Normal bowel sounds, No tenderness Musculoskeletal: No tenderness Integumentary: No rashes Neurological: Normal speech, Normal tone, Normal affect Lymphatics: No axilla or inguinal lymphadenopathy Laboratory Data at Discharge: WBC 5.30 thou/uL (4.3-10.9) 04/04/25 07:44 Hgb 12.7 g/dL (12.0-15.0) 04/04/25 07:44 Hct 38.2 % (36.0-45.0) 04/04/25 07:44 Plt Count 137 thou/uL (152-406) L 04/04/25 07:44 PT 13.6 SECONDS (10-13.0) H 04/01/25 15:35 INR 1.21 04/01/25 15:35 Sodium 141 mEq/L (136-145) 04/04/25 07:44 Potassium 4.0 mEq/L (3.5-5.1) 04/04/25 07:44 BUN 14 mg/dL (7-18) 04/04/25 07:44 Creatinine 0.62 mg/dL (0.55-1.02) 04/04/25 07:44 Glucose 77 mg/dL (74-106) 04/04/25 07:44 Magnesium 2.1 mg/dL (1.6-2.4) 04/01/25 15:35 Total Bilirubin 1.1 mg/dL (0.2-1.0) H 04/01/25 15:35 AST 17 U/L (15-37) 04/01/25 15:35 ALT 18 U/L (13-56) 04/01/25 15:35 Alkaline Phosphatase 116 U/L (45-117) 04/01/25 15:35 Triglycerides 121 mg/dL (<150) 04/03/25 06:40 Cholesterol 148 mg/dL (<200) 04/03/25 06:40 HDL Cholesterol 54 mg/dL (40-60) 04/03/25 06:40 Cholesterol/HDL Ratio 2.74 04/03/25 06:40 Lipase 42 U/L (13-75) 04/01/25 15:35 Home Medications: Aspirin [Aspirin EC 81 MG] 81 mg PO DAILY 04/30/18 Clopidogrel Bisulfate [Plavix*] 75 mg PO DAILY 04/30/18 Furosemide [Lasix*] 40 mg PO DAILY 04/30/18 Levothyroxine [Synthroid*] 25 mcg PO [id number] 04/30/18 Venlafaxine HCl *Xr* [Effexor XR] 150 mg PO DAILY 04/30/18 atenoloL [Tenormin] 100 mg PO DAILY 04/30/18 Albuterol Sulfate [Ventolin Hfa] 18 gm IH BID 12/19/21 Hydrocodone 5/APAP 325 [[place]on 5/325*] 1 tab PO DAILY 12/19/21 Linaclotide [Linzess] 145 mcg PO DAILY 12/19/21 Simvastatin 40 mg PO DAILY 12/19/21 Spironolactone [Aldactone*] 25 mg PO DAILY 12/19/21 Docusate [Colace Cap*] 100 mg PO BID cap 04/05/25 Physician Discharge Instructions: Patient to follow-up with cardiology, PCP, gastroenterology within 1 to 2 weeks. Monitor blood pressure at home after restarting home medication Lasix. Diet: High-fiber Activity: No restriction Followup: NONE,NONE [Primary Care Provider] - Time spent managing pt's care (in minutes): 43
--- NOTE | 2025-04-07 14:01 | TREADMILL ---
70% H.R.: 105 85% H.R.: 129 90% H.R.: 136 100% H.R.: 151 DX: CHEST PAIN Date of Study: 04/05/2025 Ht: 5' 5 " Wt: 173 lb 0 oz Consulting Physician: ANJUM DSOUZA MD MEDICATIONS: TYLENOL, PROVENTIL, ASPIRIN, TENORMIN, LIPITOR, LOVENOX, SYNTHROID, GLYCOLAX, ALDACTONE, EFFEXOR XR HISTORY: 70 YEAR OLD FEMALE WITH COMPLAINTS OF CHEST PAIN. HISTORY OF HYPERTENSION, CONGESTIVE HEART FAILURE, DIABETES MELLITUS, CHRONIC OBSTRUCTIVE PULMONARY DISEASE, CEREBRAL VASCULAR ACCIDENT, DEEP VEIN THROMBOSIS, HYPERLIPIDEMIA, MYOCARDIAL INFARCTION PHYSICIAL EXAMINATION: RESTING B.P.: 141/92 RESTING H.R.: 85 RESTING EKG: NORMAL SINUS RHYTHM PROTOCOL: PHARMACOLOGICAL EXERCISE TIME: 3:30 MAXIMUM HEART RATE: 132 88 % OF PREDICTED B.P. AT PEAK STRESS: 191/92 H.R. AT 1 MINUTE POST EXERCISE: 109 IMPRESSION: MYOVIEW CARDIOLITE STRESS TEST PERFORMED PER PROTOCOL. CARDIOLITE INJECTED PER PROTOCOL. PREMATURE VENTRICULAR COMPLEXES DURING THE CASE AND POST. NO SUPRAVENTRICULAR TACHYCARDIA, NO VENTRICULAR TACHYCARDIA. SHORTNESS OF BREATH IMPROVED POST STRESS. POST BLOOD PRESSURE 158/81. NO SIGNIFICANT CHANGES DURING STRESS AND RECOVERY.
== END 2025-04-05 13:30 | disposition home or self-care (01) | DRG 690 ==
LOC: ER 13:29 → ERHOLD 19:10 → 2ND 19:34
PROVIDERS: ADMIT Hospitalist; ATTEND Internal Medicine
DX: N30.00 Acute cystitis without hematuria (principal); B37.0 Candidal stomatitis; E78.5 Hyperlipidemia, unspecified; K30 Functional dyspepsia; E03.9 Hypothyroidism, unspecified; K59.09 Other constipation; E66.9 Obesity, unspecified; I11.0 Hypertensive heart disease with heart failure; I50.9 Heart failure, unspecified; E11.9 Type 2 diabetes mellitus without complications; J44.9 Chronic obstructive pulmonary disease, unspecified; K21.9 Gastro-esophageal reflux disease without esophagitis; I25.119 Atherosclerotic heart disease of native coronary artery with unspecified angina pectoris; B96.4 Proteus (mirabilis) (morganii) as the cause of diseases classified elsewhere; I25.2 Old myocardial infarction; Z88.0 Allergy status to penicillin; Z88.8 Allergy status to other drugs, medicaments and biological substances; Z86.73 Personal history of transient ischemic attack (TIA), and cerebral infarction without residual deficits; Z90.710 Acquired absence of both cervix and uterus; Z90.49 Acquired absence of other specified parts of digestive tract; Z87.891 Personal history of nicotine dependence; Z68.26 Body mass index [BMI] 26.0-26.9, adult; Z79.82 Long term (current) use of aspirin; Z79.02 Long term (current) use of antithrombotics/antiplatelets; Z79.899 Other long term (current) drug therapy; Z86.718 Personal history of other venous thrombosis and embolism
CPT/HCPCS: 36415; 71045; 71275; 74175; 78452; 80048; 80061; 80076; 81001; 82947; 83036; 83690; 83735; 83880; 84484; 85025; 85610; 87077; 87086; 87088; 87186; 93005; 93017; 93306; 93926; 93971; 94640; 96361; 96365; 96375; 97116; 97161; 99285; A4216; A9500; J0692; J0696; J1650; J2405; J2470; J2785; J7030; J7613; Q9967